=== PATIENT | female | born 1940 | race Caucasian/White ===

== ENCOUNTER 2017-12-05 10:55 | Inpatient (IN) | payer OTHER ==
[2017-12-05 11:52] LABS: Absolute Lymphocytes (CBC) 0.7 K/uL (0.7-4.9); Absolute Monocytes 0.3 K/uL (0.1-1.3); Absolute Neutrophil 8.1 K/uL (1.8-8.0); Basophils % 0.4 % (0-1.3); Eosinophils % 0.3 % (0-4.4); Hematocrit 39.6 % (36.0-45.0); Lymphocytes % 8.2 % (15.3-44.8); MCH 33.4 pg (27.0-35.0); MCV 99.3 fL (80-100); MPV 10.3 fL (7.6-11.3); Monocytes % 2.8 % (3.3-12.3); RBC Red Blood Cell Count 3.99 M/uL (3.86-4.86)
[2017-12-05 12:07] LABS: Protime INR 1.88
[2017-12-05] MEDS ORDERED: NA CHLORIDE 0.9% 1,000 ML ONE (12:12)
[2017-12-05] MEDS ORDERED: PIPER/TAZO/NS 3.375gm 3.375 GM/100 ML BAG IV ONE (12:15)
[2017-12-05 12:16] LABS: Blood Morphology Comment NOT SEEN (NOT SEEN); Platelet Estimate DECR; Urine White Blood Cell Casts OK
--- NOTE | 2017-12-05 12:32 | RAD REPORT ---
EXAM DESCRIPTION: RAD - Chest Single View - 12/05/2017 12:16 pm CLINICAL HISTORY: Fever and chills. COMPARISON: 02/11/2017 FINDINGS: Portable technique limits examination quality. Small calcified granuloma is present in the right upper lobe, likely benign. The lungs otherwise ginny sly clear. The heart is normal in size. No displaced fractures. IMPRESSION: No acute intrathoracic process suspected.
--- NOTE | 2017-12-05 12:34 | ER ---
Nurse's Notes [facility] Name: Emelia Payan Age: 77 yrs Sex: Female : 1940 Arrival Date: 12/05/2017 Time: 11:00 Bed 16 Private MD: Diagnosis: Cellulitis of left lower limb Presentation: 12/05 11:12 Presenting complaint: Patient states: woke up this morning with fever, chills, has hx iw of lymphedema in left leg which has become more red and swollen with weeping over past 3 weeks, also has wound on right leg from hitting it on a car door a couple weeks ago, wound is getting better, also started feeling pressure in her chest and SOB this morning, is feeling anxious. Transition of care: patient was not received from another setting of care. Onset of symptoms was December 05, 2017. Care prior to arrival: IV initiated. 20 GA, in the right antecubital area, Glucose check: 188. 11:12 Method Of Arrival: EMS: [facility] iw 11:12 Acuity: EDIS 3 iw 11:20 Care prior to arrival: Medication(s) given: Tylenol, 500 mg at 0945. iw Historical: - Allergies: 11:19 Cipro; iw 11:19 Xarelto; iw - Home Meds: 11:42 hydrocortisone 10 mg Oral tab 4 tabs 2 times per day [Active]; Omnitrope subcutaneous iw subcutaneous once daily [Active]; Vitamin D Oral 50,000 unit every 15 days [Active]; levothyroxine 125 mcg tab 1 tab once daily [Active]; Tradjenta 5 mg oral tab 1 tab once daily [Active]; glipizide 2.5 mg Oral tr24 once daily [Active]; liothyronine 5 mcg oral tab 1 tab once daily [Active]; potassium chloride 20 mEq Oral TbER once daily [Active]; magnesium oxide 500 mg Oral cap twice a day [Active]; warfarin 3 mg Oral tab 1 tab once daily [Active]; carvedilol 25 mg oral tab three times a day [Active]; losartan 100 mg oral tab 1 tab once daily [Active]; amlodipine 5 mg tab 1 tab once daily [Active]; fenofibrate oral 48 mg oral once daily [Active]; gabapentin 600 mg oral tab 1 tab 3 times per day [Active]; atorvastatin 10 mg oral tab 1 tab once daily [Active]; Creon 12,000-38,000 -60,000 unit oral cpDR 3 times per day [Active]; Dexilant 60 mg oral CpDB 1 cap once daily [Active]; - PMHx: 11:19 adrenal insuficiency; CHF; Diabetes - IDDM; DVT; Hyperlipidemia; Hypertension; iw Hypothyroidism; - Immunization history:: Adult Immunizations unknown. - Social history:: Smoking status: . Screenin:12 Abuse screen: Denies threats or abuse. Denies injuries from another. Nutritional iw screening: No deficits noted. Tuberculosis screening: No symptoms or risk factors identified. Fall Risk IV access (20 points). Assessment: 11:30 General: Appears in no apparent distress. Behavior is calm, cooperative. Pain: iw Complains of pain in left leg and left nettles. Neuro: Level of Consciousness is awake, alert, obeys commands, Oriented to person, place, time, situation. Cardiovascular: Edema is 2+ to left ankle, left foot and right foot. Cardiovascular: Reports chest pain, shortness of breath, Patient's skin is warm and dry. Respiratory: Reports shortness of breath Airway is patent Respiratory effort is even, labored, Respiratory pattern is symmetrical. Derm: Wound noted medial aspect of right calf Wound is approx 3 cm round area, healing wound, yellow granulation tissue present, pt states is getting better, has been there X 2 weeks. Derm: Musculoskeletal: Range of motion: intact in all extremities. 12:44 Reassessment: Patient appears in no apparent distress at this time. Dr. Cox at iw bedside to assess pt, family at bedside, antibiotics started, recollect sent to lab. Vital Signs: 11:17 BP 171 / 90; Pulse 109; Resp 22 S; Temp 101.2(O); Pulse Ox 98% on R/A; Weight 91.17 kg; iw Height 5 ft. 4 in. (162.56 cm); Pain 5/10; 13:17 BP 106 / 58; Pulse 101; Resp 20 S; Temp 99.1(O); Pulse Ox 96% on R/A; Pain 4/10; iw 11:17 Body Mass Index 34.50 (91.17 kg, 162.56 cm) iw ED Course: 11:00 Patient arrived in ED. iw 11:00 Chris Wynn MD is Attending Physician. tw4 11:12 Guerita Ray, RN is Primary Nurse. iw 11:17 Triage completed. iw 11:17 Arm band placed on. iw 11:30 Initial lab(s) drawn, by me, sent to lab. First set of blood cultures drawn Second set mh5 of blood cultures drawn by me. 11:41 Inserted saline lock: 20 gauge in left antecubital area, using aseptic technique. Blood 5 collected. 11:43 Amylase, Serum Sent. 5 11:43 Basic Metabolic Panel Sent. 5 11:43 Blood Culture Adult (2) Sent. 5 11:43 BNP Sent. 5 11:43 C-Reactive Protein Sent. 5 11:43 CBC with Diff Sent. 5 11:43 Ckmb Sent. 5 11:43 CPK Sent. 5 11:43 Lactate Sent. 5 11:43 LFT's Sent. 5 11:44 Lipase Sent. 5 11:44 Procalcitonin Sent. 5 11:44 Protime (+inr) Sent. 5 11:44 Ptt, Activated Sent. 5 11:44 Sed Rate Sent. 5 11:44 Troponin (emerg Dept Use Only) Sent. 5 12:00 Patient has correct armband on for positive identification. iw 12:15 X-ray completed. Portable x-ray completed in exam room. Patient tolerated procedure ml well. 12:16 Chest Single View XRAY In Process Unspecified. EDMS 12:32 Raul Cox DO is Hospitalizing Provider. tw4 14:16 No provider procedures requiring assistance completed. Patient admitted, IV remains in iw place. Administered Medications: 12:01 Drug: NS 0.9% (30 ml/kg) 30 ml/kg Route: IV; Rate: bolus; Site: left antecubital; iw 12:43 Drug: Zosyn 3.375 grams Route: IVPB; Infused Over: 60 mins; Site: right antecubital; iw 12:43 Drug: Motrin 400 mg Route: PO; iw Outcome: 12:33 Decision to Hospitalize by Provider. tw4 14:16 Admitted to Med/surg accompanied by сергей, via stretcher, room 206, Report called to vanessa Ornelas RN 14:16 Condition: good 14:16 Discharge instructions given to patient, family, Instructed on the need for admit, Demonstrated understanding of instructions. 14:17 Patient left the ED. iw Signatures: Dispatcher [employer] Guerita Cramer RN RN iw Lopez, Melissa ml Martinez, Maria [facility] Chris Wynn MD MD tw4
--- NOTE | 2017-12-05 12:34 | EDPHYS ---
Physician Documentation [facility] Name: Emelia Payan Age: 77 yrs Sex: Female : 1940 Arrival Date: 12/05/2017 Time: 11:00 Bed 16 Private MD: ED Physician Chris Wynn HPI: 12/05 11:44 This 77 yrs old Female presents to ER via EMS with complaints of Leg tw4 Swelling, Fever. 11:44 The patient reports fever, not measured (subjective). Onset: The symptoms/episode tw4 began/occurred 2 day(s) ago. Modifying factors: there are no obvious modifying factors. Associated signs and symptoms: Pertinent positives: leg swelling and pain. Severity of symptoms: At their worst the symptoms were moderate in the emergency department the symptoms. The patient has not experienced similar symptoms in the past. Historical: - Allergies: 11:19 Cipro; iw 11:19 Xarelto; iw - Home Meds: 11:42 hydrocortisone 10 mg Oral tab 4 tabs 2 times per day [Active]; Omnitrope subcutaneous iw subcutaneous once daily [Active]; Vitamin D Oral 50,000 unit every 15 days [Active]; levothyroxine 125 mcg tab 1 tab once daily [Active]; Tradjenta 5 mg oral tab 1 tab once daily [Active]; glipizide 2.5 mg Oral tr24 once daily [Active]; liothyronine 5 mcg oral tab 1 tab once daily [Active]; potassium chloride 20 mEq Oral TbER once daily [Active]; magnesium oxide 500 mg Oral cap twice a day [Active]; warfarin 3 mg Oral tab 1 tab once daily [Active]; carvedilol 25 mg oral tab three times a day [Active]; losartan 100 mg oral tab 1 tab once daily [Active]; amlodipine 5 mg tab 1 tab once daily [Active]; fenofibrate oral 48 mg oral once daily [Active]; gabapentin 600 mg oral tab 1 tab 3 times per day [Active]; atorvastatin 10 mg oral tab 1 tab once daily [Active]; Creon 12,000-38,000 -60,000 unit oral cpDR 3 times per day [Active]; Dexilant 60 mg oral CpDB 1 cap once daily [Active]; - PMHx: 11:19 adrenal insuficiency; CHF; Diabetes - IDDM; DVT; Hyperlipidemia; Hypertension; iw Hypothyroidism; - Immunization history:: Adult Immunizations unknown. - Social history:: Smoking status: . ROS: 11:44 Cardiovascular: Negative for chest pain, palpitations, and edema, Respiratory: Negative tw4 for shortness of breath, cough, wheezing, and pleuritic chest pain, Abdomen/GI: Negative for abdominal pain, nausea, vomiting, diarrhea, and constipation. 11:44 Constitutional: Positive for chills, fever, Negative for body aches, fatigue, malaise, poor PO intake, weight loss. 11:44 Skin: Negative for injury, rash, and discoloration, Neuro: Negative for headache, tw4 weakness, numbness, tingling, and seizure. 11:44 MS/extremity: Positive for pain, swelling, tenderness, warmth. Exam: 11:44 Constitutional: This is a well developed, well nourished patient who is awake, alert, tw4 and in no acute distress. Head/Face: Normocephalic, atraumatic. Chest/axilla: Normal chest wall appearance and motion. Nontender with no deformity. No lesions are appreciated. Cardiovascular: Regular rate and rhythm with a normal S1 and S2. No gallops, murmurs, or rubs. Normal PMI, no JVD. No pulse deficits. Respiratory: Lungs have equal breath sounds bilaterally, clear to auscultation and percussion. No rales, rhonchi or wheezes noted. No increased work of breathing, no retractions or nasal flaring. Abdomen/GI: Soft, non-tender, with normal bowel sounds. No distension or tympany. No guarding or rebound. No evidence of tenderness throughout. Skin: Warm, dry with normal turgor. Normal color with no rashes, no lesions, and no evidence of cellulitis. Neuro: Awake and alert, GCS 15, oriented to person, place, time, and situation. Cranial nerves II-XII grossly intact. Motor strength 5/5 in all extremities. Sensory grossly intact. Cerebellar exam normal. Normal gait. 11:44 Musculoskeletal/extremity: Extremities: noted in the left nettles: erythema, swelling, tenderness, There is no evidence of ecchymosis, laceration, puncture, rash. Vital Signs: 11:17 BP 171 / 90; Pulse 109; Resp 22 S; Temp 101.2(O); Pulse Ox 98% on R/A; Weight 91.17 kg; iw Height 5 ft. 4 in. (162.56 cm); Pain 5/10; 13:17 BP 106 / 58; Pulse 101; Resp 20 S; Temp 99.1(O); Pulse Ox 96% on R/A; Pain 4/10; iw 11:17 Body Mass Index 34.50 (91.17 kg, 162.56 cm) iw MDM: 11:00 Patient medically screened. tw4 12:33 Differential diagnosis: viral Infection, URI, pneumonia. Data reviewed: vital signs, tw4 nurses notes. 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 Counseling: I had a detailed discussion with the patient and/or guardian regarding: the historical points, exam findings, and any diagnostic results supporting the discharge/admit diagnosis, lab results, radiology results. Physician consultation: Raul Cox DO was called at 12:30, regarding admission, patient's condition, and will see patient in ED. 12/05 11:20 Order name: Amylase, Serum 12/05 11:20 Order name: Basic Metabolic Panel 12/05 11:20 Order name: Blood Culture Adult (2) 12/05 11:20 Order name: BNP; Complete Time: 12:24 4 12/05 11:20 Order name: C-Reactive Protein 12/05 11:20 Order name: CBC with Diff; Complete Time: 12:24 12/05 11:20 Order name: Ckmb 12/05 11:20 Order name: CPK 12/05 11:20 Order name: Lactate 12/05 11:20 Order name: LFT's 12/05 11:20 Order name: Lipase 12/05 11:20 Order name: Procalcitonin 12/05 11:20 Order name: Protime (+inr); Complete Time: 12:24 tw4 12/05 11:20 Order name: Ptt, Activated; Complete Time: 12:24 12/05 11:20 Order name: Sed Rate; Complete Time: 12:24 12/05 11:20 Order name: Troponin (emerg Dept Use Only) 12/05 11:20 Order name: Chest Single View XRAY 12/05 11:20 Order name: Accucheck; Complete Time: 11:31 tw4 12/05 11:20 Order name: Cardiac monitoring; Complete Time: 13:42 tw4 12/05 11:20 Order name: EKG - Nurse/Tech; Complete Time: 13:42 tw4 12/05 11:20 Order name: IV Saline Lock - Large Bore; Complete Time: 13:42 tw 12/05 11:20 Order name: Labs collected and sent; Complete Time: 13:42 tw4 12/05 11:20 Order name: O2 Per Protocol; Complete Time: 13:42 tw4 12/05 11:20 Order name: O2 Sat Monitoring; Complete Time: 13:42 [facility] 12/05 11:55 Order name: CBC Smear Scan; Complete Time: 12:24 EDCO 12/05 12:11 Order name: Labs - recollect needed; Complete Time: 12:43 bd Administered Medications: 12:01 Drug: NS 0.9% (30 ml/kg) 30 ml/kg Route: IV; Rate: bolus; Site: left antecubital; iw 12:43 Drug: Zosyn 3.375 grams Route: IVPB; Infused Over: 60 mins; Site: right antecubital; iw 12:43 Drug: Motrin 400 mg Route: PO; iw Disposition: 12/05/17 12:33 Hospitalization ordered by Raul Cox for Observation. Preliminary diagnosis is Cellulitis of left lower limb. - Bed requested for Telemetry/MedSurg (observation). - Status is Observation. iw - Condition is Stable. - Problem is new. - Symptoms are unchanged. UTI on Admission? No Signatures: Dispatcher [employer] Caren Travis Irene, ODILON RN Chris Wright MD MD tw4
[2017-12-05] MEDS ORDERED: IBUPROFEN 200 MG TAB PO ONE (12:47)
[2017-12-05] MEDS ORDERED: ONDANSETRON 4 MG/2 ML VIAL IV PRN (12:58)
[2017-12-05] MEDS ORDERED: ACETAMINOPHEN 500 MG TAB PO PRN (12:58)
[2017-12-05 13:04] LABS: Potassium 3.5 mEq/L (3.6-5.0)
[2017-12-05 13:12] LABS: Albumin 3.2 g/dL (3.2-5.5); Bilirubin Direct 0.1 mg/dL (0-0.2); Bilirubin Total 0.8 mg/dL (0.3-1.2); Protein, Total 5.5 g/dL (6.0-8.3)
[2017-12-05] MEDS ORDERED: TRAMADOL HCL 50 MG TAB PO PRN (13:14)
[2017-12-05 13:35] LABS: C-Reactive Protein 17.3 mg/L (<10.0)
--- NOTE | 2017-12-05 14:28 | P.HP ---
Certification for Inpatient Patient admitted to: Inpatient With expected LOS: >2 Midnights Patient will require the following post-hospital care: None Practitioner: I am a practitioner with admitting privileges, knowledge of patient current condition, hospital course, and medical plan of care. Services: Services provided to patient in accordance with Admission requirements found in Title 42 Section 412.3 of the Code of Federal Regulations Patient History Date of Service: 12/05/17 Primary Care Provider: Dr. Iraheta; Card-Dr. Belcher; Endo-Dr. Mcgregor; GI-Dr. Bush Reason for admission: Erythema, pain to the lower extremities History of Present Illness: 77-year-old female presented emergency room with multiple complaints including pain, erythema to the lower extremities bilateral. She also has an ulcer to the right lower extremity. Patient has noted increasing edema to the lower extremities over the past 3 weeks. The patient has chronic lymphedema. She reports that her leg has been weeping. Over the last several days she has noted increasing erythema bilaterally but more so on the left side. She also reports pain to the left ankle region. She further reports that she had a puncture wound to the left ankle with a thorn. This was removed. There is also a ulcer to the right lower extremity that has been present for quite some time. She has been doctoring it herself. She reports mild fever. She has been feeling weak. In the ER the patient was evaluated. Erythema was noted to the left lower extremity. White count 9.2, pro calcitonin unremarkable. Cellulitis was identified including ulcer to the right lower extremity. The patient was admitted for further evaluation and treatment. When I saw the patient ER, she appeared comfortable but had pain to the left ankle region. Patient has multiple medical problem. Patient is seen by multiple specialists including endocrinology, GI, cardiology. Allergies ciprofloxacin [From Cipro] Allergy (Verified 02/11/17 06:42) Unknown rivaroxaban [From Xarelto] Allergy (Verified 02/11/17 06:42) Unknown Home Medications: Amlodipine [Norvasc*] 5 mg PO DAILY 01/24/16 Atorvastatin Calcium [Lipitor*] 10 mg PO BEDTIME 01/24/16 Calcium Carbonate/Vitamin D3 [Calcium 500-Vit D3 400 Tablet] 1 tab PO DAILY Carvedilol [Coreg*] 25 mg PO TID 01/24/16 Ergocalciferol (Vitamin D2) [Vitamin D2] 1.25 mg PO SEECOM 01/24/16 Fenofibrate 40 mg PO DAILY 01/24/16 Ferrous Sulfate [Ferrous Sulfate*] 1 tab PO BID 01/24/16 Gabapentin [Neurontin] 600 mg PO BID 01/24/16 Hydrocortisone [Cortef*] 15 mg PO BID 01/24/16 Linagliptin [Tradjenta] 5 mg PO DAILY 01/24/16 Losartan Potassium [Cozaar] 100 mg PO DAILY 01/24/16 Magnesium Oxide [Laxative Dietary Supplement] 500 mg PO BID 01/24/16 Omeprazole [Prilosec] 40 mg PO DAILY 01/24/16 Potassium Oral Tab [Klor-Con 10 mEq Tab*] 20 meq PO DAILY 01/24/16 Somatropin [Omnitrope] 0.3 mg SQ DAILY 01/24/16 Warfarin Sodium [Coumadin] 3 mg PO DAILY 02/06/16 Glipizide [Glipizide Xl] 1 tab PO DAILY 12/29/16 Lipase/Protease/Amylase [Creon Dr 12,000 Units Capsule] 1 tab PO BID 12/29/16 Sucralfate [Carafate*] 1 tab PO Q6HR 12/29/16 Levothyroxine [Synthroid*] 1 tab PO DAILY 02/10/17 Lorazepam [Ativan*] 1 tab PO BEDTIME 02/10/17 Fluconazole [Diflucan] 200 mg PO DAILY #7 tablet 02/11/17 Lorazepam [Ativan*] 0.5 mg PO BEDTIME #14 tab 02/11/17 Nystatin 10 ml PO BID #300 ml 02/11/17 Pantoprazole [Protonix Tab*] 40 mg PO DAILYAC #30 tab 02/11/17 - Past Medical/Surgical History Diabetic: Yes -: Diabetes mellitus type 2 -: History CVA 2012 -: HTN -: Anxiety -: History of pituitary gland removal -: GERD with history of GI bleed -: Hypothyroidism -: Chronic anti coagulation -: History atrial fibrillation -: Chronic steroids -: Adrenal insufficiency -: Hyperlipidemia -: hysterectomy -: bradley carpal tunnel sx -: L lumpectomy -: brain tumor removed- benign -: pituitary gland removal -: appendectomy Psychosocial/ Personal History: The patient is . She has 5 children. She does not work. - Family History Mother -: Heart disease, Hypertension Notes: of heart attack Father -: Heart disease Notes: of heart attack - Social History Smoking Status: Never smoker Alcohol use: No CD- Drugs: No Caffeine use: Yes Place of Residence: Home Review of Systems General: Fever, Chills, Weakness, Malaise, As per HPI Eyes: Unremarkable ENT: Unremarkable Respiratory: Unremarkable Cardiovascular: Unremarkable Gastrointestinal: Unremarkable Genitourinary: Unremarkable Musculoskeletal: Leg Pain, Pedal edema, As per HPI Integumentary: As per HPI Neurological: Weakness Lymphatics: Unremarkable Physical Examination - Physical Exam General: Alert, In no apparent distress, Oriented x3, Cooperative HEENT: Atraumatic, Normocephalic, Mucous membr. moist/pink Neck: Supple, No Thyromegaly Respiratory: Clear to auscultation bilaterally, Normal air movement Cardiovascular: Normal pulses, Regular rate/rhythm Gastrointestinal: Normal bowel sounds, Soft and benign, Non-distended, No masses , No rebound, No guarding Musculoskeletal: Other (Erythema, pain to the left lower extremity. Pain with movement of the ankle region. Ulcer to the right lower extremity noted. Less erythema noted to the right side. Chronic lymphedema noted bilaterally.) Integumentary: Other (As above. Ulcer noted to the right lower extremity) Neurological: Normal speech, Normal strength at 5/5 x4 extr, Normal tone, Normal affect - Studies Laboratory Data (last 24 hrs) 12/05/17 11:15: PT 22.3 H, INR 1.88, APTT 26.2 12/05/17 11:15: WBC 9.2, Hgb 13.3, Hct 39.6, Plt Count 111 L 12/05/17 11:15: B-Natriuretic Peptide 197 H Assessment and Plan - Problems (Diagnosis) (1) Ulcer Current Visit: Yes Status: Acute Plan: Ulcer noted to the right lower extremity. Patient evaluated by surgery. Case discussed at length. Will continue with antibiotic therapy. Patient will need debridement. Surgery recommends cardiac clearance. Will consult cardiology to further assess. Will check ultrasound of the lower extremities to rule out DVT. Patient is taking Coumadin. INR subtherapeutic. No need to adjust medication at this time as the patient will need surgery. (2) Adrenal insufficiency Current Visit: Yes Status: Chronic Plan: Will continue with her steroid medication. (3) Chronic use of steroids Current Visit: Yes Status: Chronic Plan: Continue with her medication. (4) Atrial fibrillation Onset Date: 12/30/16 Current Visit: No Status: Chronic Plan: Will continue with medication. Patient on chronic anti coagulation therapy. Qualifiers: Atrial fibrillation type: chronic Qualified Code(s): I48.2 - Chronic atrial fibrillation (5) Cellulitis Onset Date: 12/30/16 Current Visit: No Status: Acute Plan: Antibiotics started. Will continue with above treatment plan. Qualifiers: Site of cellulitis: extremity Site of cellulitis of extremity: lower extremity Laterality: unspecified laterality Qualified Code(s): L03.119 - Cellulitis of unspecified part of limb (6) Chronic anticoagulation Onset Date: 01/20/16 Current Visit: No Status: Chronic Plan: Patient on Coumadin at this time. Will continue with current dose. Patient to have surgery tomorrow. (7) Diabetes mellitus Onset Date: 12/30/16 Current Visit: No Status: Chronic Plan: Will continue with sliding scale. Will monitor closely. Qualifiers: Diabetes mellitus type: type 2 Diabetes mellitus fci insulin use: without fci use Diabetes mellitus complication status: with unspecified complications Qualified Code(s): E11.8 - Type 2 diabetes mellitus with unspecified complications (8) Hyperlipidemia Onset Date: 01/20/16 Current Visit: No Status: Chronic Plan: Will continue with her medication. Qualifiers: Hyperlipidemia type: unspecified Qualified Code(s): E78.5 - Hyperlipidemia , unspecified (9) Hypertension Onset Date: 01/20/16 Current Visit: No Status: Chronic Plan: Will continue with her medication. Qualifiers: Hypertension type: essential hypertension Qualified Code(s): I10 - Essential (primary) hypertension (10) Hypothyroidism Onset Date: 01/20/16 Current Visit: No Status: Chronic Plan: Will continue with her medication Qualifiers: Hypothyroidism type: unspecified Qualified Code(s): E03.9 - Hypothyroidism , unspecified Discharge Plan: Home Plan to discharge in: Greater than 2 days - Advance Directives Does patient have a Living Will: Yes Does patient have a Durable POA for Healthcare: No - Code Status/Comfort Care Code Status Assessed: Yes Time Spent Managing Pts Care (In Minutes): 55
--- NOTE | 2017-12-05 15:19 | EKG ---
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
[2017-12-05] MEDS: GABAPENTIN 300 MG CAP PO SCH ×2 (15:20→21:43)
[2017-12-05] MEDS: VANCOMYCIN 1.5 GM in NA CHLORIDE 0.9% 500 ML IVPB SCH (15:21)
[2017-12-05] MEDS: PIPER/TAZO/NS 3.375gm 3.375 GM/100 ML BAG IVPB SCH (15:21)
--- NOTE | 2017-12-05 15:22 | RAD REPORT ---
EXAM DESCRIPTION: RAD - Ankle Left 3 View - 12/05/2017 3:03 pm CLINICAL HISTORY: Pain and swelling, fever COMPARISON: None. FINDINGS: Prominent soft tissue swelling is seen involving the ankle. Mild flatfoot deformity is pre sent. Calcaneal spurs are noted. No radiopaque foreign body seen. No subcutaneous air or evidence of osteomyelitis.
[2017-12-05] MEDS ORDERED: POTASSIUM CL SA 10 MEQ TAB PO ONE (16:37)
[2017-12-05] MEDS: CARVEDILOL 25 MG TAB PO SCH (17:03)
[2017-12-05] MEDS: INSULIN -REGULAR HUMAN 50 UNIT/0.5 ML ML SQ SCH ×2 (17:10→21:43)
[2017-12-05] MEDS: WARFARIN SODIUM 3 MG TAB PO SCH (17:10)
[2017-12-05] MEDS: AMYLASE/LIPASE/PROTEASE CAP PO SCH ×2 (17:10→21:43)
--- NOTE | 2017-12-05 17:56 | RAD REPORT ---
EXAM DESCRIPTION: VAS - Extrem Venous W Compress Anderson - 12/05/2017 4:14 pm CLINICAL HISTORY: Bilateral leg edema and swelling. COMPARISON: None. TECHNIQUE: Real-time sonographic interrogation of the left and right lower extremity deep venous sys tems was performed. FINDINGS: Normal compressibility, flow augmentation, phasic flow and spontaneous flow is identified in both the left and right lower extremity deep venous systems. IMPRESSION: No sonographic evidence of left or right lower extremity deep venous thrombosis.
--- NOTE | 2017-12-05 18:42 | CON ---
Date of Consultation: 12/05/2017 Diagnosis: Left leg cellulitis and right leg venous stasis ulcer with infection. History Of Present Illness: This is the case of a 77-year-old patient with 2 problems, running a fev er, and swelling of the left leg and entire lower area and foot associated with drainage from the are a and also the patient has a necrotic venous stasis ulcer on the right thigh, which is about 4 x 4 x 0.7 cm. The patient was admitted to the hospital with IV antibiotics and a surgical consult was obta ined for debridement. The patient stated that on the right side, she hit a car door about 2 weeks ag o and has not heal. On the left side, about 3 weeks ago, she started having swelling and weeping com ing from the area and basically has not stopped neither and now the redness and increased temperature . Past Medical History: Renal insufficiency, congestive heart failure, diabetes, DVT, hypertension, hy pothyroidism, Medications: Hydrocortisone, levothyroxine. Allergies: CIPRO AND XARELTO. Social History: She does not smoke. She does not drink alcohol. Family History: Noncontributory. Review of Systems: Constitutional: Patient states some fever and chills. Respiratory: Denies any shortness of breath. Gastrointestinal: Denies any melena, any hematochezia. Genitourinary: Denies any dysuria, hematuria. Extremities: As above. Physical Examination: General: The patient is awake, alert, in no distress. HEENT: Pupils anicteric. Chest: Clear. Abdomen: Soft and depressible. Extremities: With dorsalis pedis pulses present bilaterally. On the left side, the patient has cell ulitis and increased temperature from the area of the knee, all the way down to the foot. There are multiple areas with clear discharge consistent with chronic venous insufficiency and hypopigmentation over the area of the lower leg. On the right side, patient has an ulcer present, it is about 4 x 4 x 0.7 cm deep. Had some necrotic tissue present with some cellulitis over the area. Also changes of venous stasis disease with hyperpigmentation and chronic swelling with pitting edema. Once again, d orsalis pedis pulses and posterior tibialis are still present. Also femoral pulses bilaterally. Laboratory Data: Blood work shows WBC count of 9.2 with hemoglobin of 13.3, INR is 1.8, potassium 3. 5. Total bilirubin of 0.8. Assessment And Plan: Cellulitis of bilateral lower extremity with infected venous stasis ulcer on th e right side. The patient will need debridement of that area with benefits, alternatives, and risks fully explained to the patient, which include but are not limited to infection, bleeding, damage to a djacent structures, anesthesia complication, [place], and even . She will require wound care. She a lso will need compression dressings once the infection is under control. She understands the importa nce of living with venous stasis disease, and the importance of elevation and losing weight, and diet . The patient also counseled about diabetes control. I do not see any venous stasis, DVT, a venous Doppler ordered, but I believe she should she have one to rule out DVT. N.p.o. after midnight and co nsent for debridement of the right venous stasis infected ulcer with benefit, alternatives, and risks explained above. She understood. PINO/AZIZA Voice ID: [id number] Report ID: [id number]
--- NOTE | 2017-12-05 20:33 | CON ---
History Of Present Illness: Ms. Payan has AFib that is persistent. She is mostly in AFib, but tojose eduardo chrsity happens to be in sinus rhythm. She is on Coumadin. She could not take Xarelto. She does tolerate Coumadin. Her INR today is subtherapeutic. Her INR is 1.88, it is almost therapeutic. She has und erlying diabetes. She has chronic venous insufficiency. She gets ulcers on her skin because of that she actually has fairly decent arterial circulation to the legs pulses are easily palpable. She den ies having chest pain. She has mild dyspnea on exertion. The main reason for which she came was bec ause of ulcer on her right nettles that seems to be getting worse. Medications: Outpatient medications have been Omnitrope, potassium chloride, magnesium oxide, losart an, linagliptin, hydrocortisone, gabapentin, fenofibrate, Coreg, calcium carbonate, atorvastatin, aml odipine, warfarin, lipase, glipizide, levothyroxine, Dexilant, and liothyronine. Past Medical History: She has underlying pituitary insufficiency, chronic AFib, hypertension, diabet es. Allergies: SHE IS ALLERGIC TO CIPRO AND RIVAROXABAN. Physical Examination: Vital Signs: 5 feet 4 inches tall, 201 pounds. Obese. Alert and oriented. Not in distress. Lungs: Clear. Cardiac: Within normal limits. Abdomen: Soft. Extremities: Reveal chronic venous stasis changes. There is a blister that is intact on her left sh in. The right nettles has a blister with an ulcer and dorsalis pedis pulses are 1 to 2+ bilaterally. P osterior tibial pulses trace to 1+. Diagnostic Data: Electrocardiogram reveals sinus rhythm with premature atrial complexes. No other a bnormality. Impression: Mrs. Payan is an acceptable risk patient to undergo debridement of the ulcer on her rig ht nettles. If that can be closed and heal, she should probably be on lymphedema therapy or some kind o f compression stocking arrangement to minimize the amount of damage she gets from venous insufficienc y. SH/MODL Voice ID: [id number] Report ID: [id number]
[2017-12-05] MEDS: FENOFIBRATE 48 MG TAB PO SCH (21:42)
[2017-12-05] MEDS: HYDROCORTISONE 10 MG TAB PO SCH (21:42)
[2017-12-05] MEDS: ATORVASTATIN 10 MG TAB PO SCH (21:43)
[2017-12-05 23:09] LABS: Urine Appearance CLOUDY; Urine Bilirubin NEGATIVE (NEG); Urine Blood NEGATIVE (NEG); Urine Color YELLOW; Urine Glucose 1+ (NEG); Urine Protein NEGATIVE (NEG); Urine Specific Gravity 1.025 (1.005-1.030); Urine pH 5.5 (5.0-7.0)
[2017-12-05 23:17] LABS: Urine Microscopic Reflex ORDER UMIC
[2017-12-06 00:14] LABS: Calcium Oxalate Crystals- Ur FEW (NONE SEEN); Urine Bacteria <20 /HPF (<20); Urine Culture Reflex Order REFLEXED; Urine RBC NONE SEEN /HPF (NONE SEEN)
[2017-12-06] MEDS: PIPER/TAZO/NS 3.375gm 3.375 GM/100 ML BAG IVPB SCH ×3 (00:43→17:30)
[2017-12-06] MEDS ORDERED: NA CHLORIDE 0.9% 250 ML ONE (01:00)
[2017-12-06] MEDS: LIOTHYRONINE SOD 5 MCG TAB PO SCH (05:02)
[2017-12-06] MEDS: PANTOPRAZOLE 40MG TABLET PO SCH (05:02)
[2017-12-06] MEDS: LEVOTHYROXINE SOD 0.025 MG TAB PO SCH (05:02)
[2017-12-06] MEDS: CARVEDILOL 25 MG TAB PO SCH ×2 (05:02→17:26)
[2017-12-06 05:23] LABS: Absolute Lymphocytes (CBC) 0.5 K/uL (0.7-4.9); Absolute Monocytes 0.3 K/uL (0.1-1.3); Absolute Neutrophil 7.4 K/uL (1.8-8.0); Basophils % 0.2 % (0-1.3); Eosinophils % 0.3 % (0-4.4); Hematocrit 34.1 % (36.0-45.0); Lymphocytes % 5.8 % (15.3-44.8); MCH 33.5 pg (27.0-35.0); MCV 98.3 fL (80-100); MPV 10.1 fL (7.6-11.3); Monocytes % 3.9 % (3.3-12.3); RBC Red Blood Cell Count 3.47 M/uL (3.86-4.86)
[2017-12-06 05:50] LABS: Protime INR 2.14
[2017-12-06 06:02] LABS: Magnesium 1.6 mg/dL (1.8-2.5); Potassium 3.7 mEq/L (3.6-5.0)
[2017-12-06] MEDS ORDERED: MAGNESIUM SULFATE 1 gm IVPB 1 GM/100 ML BAG IV ONE (06:16)
[2017-12-06] MEDS ORDERED: KCL 20 MEQ/100 mL IVPB 20 MEQ/100 ML BAG IV SCH (07:00)
[2017-12-06] MEDS: AMYLASE/LIPASE/PROTEASE CAP PO SCH ×4 (07:30→21:48)
[2017-12-06] MEDS: INSULIN -REGULAR HUMAN 50 UNIT/0.5 ML ML SQ SCH ×4 (07:30→21:00)
[2017-12-06] MEDS: HYDROCORTISONE 10 MG TAB PO SCH ×2 (08:17→21:48)
[2017-12-06] MEDS: GABAPENTIN 300 MG CAP PO SCH ×3 (08:18→21:46)
[2017-12-06] MEDS: LOSARTAN POTASSIUM 50 MG TABLET PO SCH (08:22)
[2017-12-06] MEDS: AMLODIPINE 5 MG TAB PO SCH (08:22)
[2017-12-06] MEDS ORDERED: VANCOMYCIN 1 GM in NA CHLORIDE 0.9% 500 ML IVPB SCH (09:00)
[2017-12-06] MEDS ORDERED: LIDOCAINE 2% MPF 5 ML VIAL ONE (09:56)
[2017-12-06] MEDS ORDERED: PROPOFOL 200 MG/20 ML VIAL IV ONE (09:56)
[2017-12-06] MEDS ORDERED: ONDANSETRON 4 MG/2 ML VIAL ONE (09:57)
[2017-12-06] MEDS ORDERED: FENTANYL CITR 100 MCG/2 ML ONE (09:57)
[2017-12-06] MEDS ORDERED: NA CHLORIDE 0.9% 1,000 ML ONE (10:26)
--- NOTE | 2017-12-06 11:39 | P.BOP ---
Preoperative diagnosis: Necrotic infected right leg venous ulcer, left leg cellulitis Postoperative diagnosis: same Primary procedure: Excisional debridement subQ necrotic infected R leg venous ulcer [id number] Estimated blood loss: <10cc Specimen: none Findings: necrotic infected right leg venous ulcer Anesthesia: General Transferred to: Recovery Room Condition: Good
[2017-12-06] MEDS: HYDROCODONE/APAP 7.5/325 MG TAB PO PRN ×2 (14:17→21:47)
[2017-12-06] MEDS: VANCOMYCIN 1.5 GM in NA CHLORIDE 0.9% 500 ML IVPB SCH (15:02)
--- NOTE | 2017-12-06 15:58 | P.PN ---
Subjective Date of Service: 12/06/17 Primary Care Provider: Dr. Iraheta; Card-Dr. Belcher; Endo-Dr. Mcgregor; GI-Dr. Bush Chief Complaint: Erythema, pain to the lower extremities Subjective: Doing well Physical Examination - Vital Signs Temperature: 97.5 F Blood Pressure: 107/54 Pulse: 76 Respirations: 18 Pulse Ox (%): 95 - Physical Exam General: Alert, In no apparent distress, Oriented x3, Cooperative HEENT: Atraumatic Neck: Supple Respiratory: Clear to auscultation bilaterally, Normal air movement Cardiovascular: Normal pulses, Regular rate/rhythm Gastrointestinal: Normal bowel sounds, Soft and benign, Non-distended, No masses , No rebound, No guarding Musculoskeletal: Other (No significant change since yesterday. Erythema slightly less to the left side. Ulcer noted to the right lower) Neurological: Normal speech, Normal strength at 5/5 x4 extr, Normal tone, Normal affect - Studies Laboratory Data (last 24 hrs) 12/06/17 04:48: Sodium 143, Potassium 3.7, BUN 18, Creatinine 0.80, Glucose 146 H, Magnesium 1.6 L 12/06/17 04:48: PT 25.5 H, INR 2.14 12/06/17 04:48: WBC 8.2, Hgb 11.6 L, Hct 34.1 L, Plt Count 95 L Microbiology Data (last 24 hrs): 12/05/17 21:55 Wound - Right Lower Leg Gram Stain - Final Medications List Reviewed: Yes Assessment & Plan - Problems (Diagnosis) (1) Ulcer Onset Date: 12/06/17 Current Visit: Yes Status: Acute Plan: Ulcer noted to the right lower extremity. Patient cleared by cardiology. Surgery will take the patient for debridement of the right lower extremity venous stasis ulcer. Will continue IV antibiotic therapy. Will review home medications. (2) Adrenal insufficiency Onset Date: 12/06/17 Current Visit: Yes Status: Chronic Plan: Will continue with her steroid medication. (3) Chronic use of steroids Onset Date: 12/06/17 Current Visit: Yes Status: Chronic Plan: Continue with her medication. (4) Atrial fibrillation Onset Date: 12/30/16 Current Visit: No Status: Chronic Plan: Will continue with medication. Patient on chronic anti coagulation therapy. Qualifiers: Atrial fibrillation type: chronic Qualified Code(s): I48.2 - Chronic atrial fibrillation (5) Cellulitis Onset Date: 12/30/16 Current Visit: No Status: Acute Plan: Will continue with antibiotic therapy. Patient be taken to surgery today. Qualifiers: Site of cellulitis: extremity Site of cellulitis of extremity: lower extremity Laterality: unspecified laterality Qualified Code(s): L03.119 - Cellulitis of unspecified part of limb (6) Chronic anticoagulation Onset Date: 01/20/16 Current Visit: No Status: Chronic Plan: Patient on Coumadin at this time. Will continue with current dose. (7) Diabetes mellitus Onset Date: 12/30/16 Current Visit: No Status: Chronic Plan: Will continue with sliding scale. Will monitor closely. 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 Qualifiers: Hyperlipidemia type: unspecified Qualified Code(s): E78.5 - Hyperlipidemia , unspecified (9) Hypertension Onset Date: 01/20/16 Current Visit: No Status: Chronic Plan: Will continue with her medication. Qualifiers: Hypertension type: essential hypertension Qualified Code(s): I10 - Essential (primary) hypertension (10) Hypothyroidism Onset Date: 01/20/16 Current Visit: No Status: Chronic Plan: Will continue with her medication Qualifiers: Hypothyroidism type: unspecified Qualified Code(s): E03.9 - Hypothyroidism , unspecified Discharge Plan: Home Plan to discharge in: Greater than 2 days Time Spent Managing Pts Care (In Minutes): 55
[2017-12-06] MEDS: WARFARIN SODIUM 3 MG TAB PO SCH (17:25)
[2017-12-06] MEDS ORDERED: GLUCAGON 1 MG/VIAL IM PRN (18:14)
[2017-12-06] MEDS ORDERED: D50W 25 GM/50 ML SYRINGE IV PRN (18:14)
[2017-12-06] MEDS: MAGNESIUM OXIDE 500 MG PO SCH (21:00)
[2017-12-06] MEDS: ATORVASTATIN 10 MG TAB PO SCH (21:48)
[2017-12-06] MEDS: FENOFIBRATE 48 MG TAB PO SCH (21:48)
[2017-12-07] MEDS: PIPER/TAZO/NS 3.375gm 3.375 GM/100 ML BAG IVPB SCH ×3 (00:01→16:59)
[2017-12-07 05:32] LABS: Absolute Lymphocytes (CBC) 0.7 K/uL (0.7-4.9); Absolute Monocytes 0.3 K/uL (0.1-1.3); Absolute Neutrophil 5.6 K/uL (1.8-8.0); Basophils % 0.3 % (0-1.3); Eosinophils % 0.8 % (0-4.4); Hematocrit 32.5 % (36.0-45.0); Lymphocytes % 10.5 % (15.3-44.8); MCH 33.8 pg (27.0-35.0); MCV 98.5 fL (80-100); MPV 9.6 fL (7.6-11.3); Monocytes % 4.7 % (3.3-12.3)
[2017-12-07 05:46] LABS: Magnesium 1.8 mg/dL (1.8-2.5); Potassium 4.2 mEq/L (3.6-5.0)
[2017-12-07] MEDS ORDERED: MAGNESIUM SULFATE 1 gm IVPB 1 GM/100 ML BAG IV ONE (05:54)
[2017-12-07 05:57] LABS: Protime INR 1.74
[2017-12-07] MEDS: HYDROCODONE/APAP 7.5/325 MG TAB PO PRN (06:17)
[2017-12-07] MEDS: LEVOTHYROXINE SOD 0.025 MG TAB PO SCH (06:18)
[2017-12-07] MEDS: PANTOPRAZOLE 40MG TABLET PO SCH (06:18)
[2017-12-07] MEDS: CARVEDILOL 25 MG TAB PO SCH ×2 (06:18→16:59)
[2017-12-07] MEDS: LIOTHYRONINE SOD 5 MCG TAB PO SCH (06:18)
[2017-12-07] MEDS: INSULIN -REGULAR HUMAN 50 UNIT/0.5 ML ML SQ SCH ×4 (07:30→20:54)
--- NOTE | 2017-12-07 08:51 | P.PN ---
Subjective Date of Service: 12/07/17 Primary Care Provider: Dr. Iraheta; Card-Dr. Belcher; Endo-Dr. Mcgregor; GI-Dr. Bush Chief Complaint: Erythema, pain to the lower extremities Subjective: Doing well (Patient was able to ambulate today.) Physical Examination - Vital Signs Temperature: 97.4 F Blood Pressure: 132/63 Pulse: 76 Respirations: 20 Pulse Ox (%): 96 - Physical Exam General: Alert, In no apparent distress, Oriented x3, Cooperative HEENT: Atraumatic Neck: Supple Respiratory: Clear to auscultation bilaterally, Normal air movement Cardiovascular: Normal pulses, Regular rate/rhythm Gastrointestinal: Normal bowel sounds, Soft and benign, Non-distended, No tenderness, No masses, No rebound, No guarding Musculoskeletal: No erythema, No tenderness, No warmth Integumentary: Other (Erythema to the lower extremities improved. Swelling to the lower extremities also improved. Particularly to the left side shows improvement. Right lower extremity bandaged as she had surgery yesterday.) Neurological: Normal speech, Normal strength at 5/5 x4 extr, Normal tone, Normal affect - Studies Microbiology Data (last 24 hrs): 12/05/17 21:55 Wound - Right Lower Leg Gram Stain - Final Medications List Reviewed: Yes Assessment & Plan - Problems (Diagnosis) (1) Ulcer Onset Date: 12/06/17 Current Visit: Yes Status: Acute Plan: Patient had surgery for debridement of the right lower extremity ulcer. Cultures obtained. Will continue with IV antibiotic therapy. Overall cellulitis has improved. Will discuss further with surgery. Will have physical therapy ambulate. (2) Adrenal insufficiency Onset Date: 12/06/17 Current Visit: Yes Status: Chronic Plan: Will continue with her steroid medication. (3) Chronic use of steroids Onset Date: 12/06/17 Current Visit: Yes Status: Chronic Plan: Continue with her medication. (4) Atrial fibrillation Onset Date: 12/30/16 Current Visit: No Status: Chronic Plan: Will continue with medication. Patient on chronic anti coagulation therapy. Qualifiers: Atrial fibrillation type: chronic Qualified Code(s): I48.2 - Chronic atrial fibrillation (5) Cellulitis Onset Date: 12/30/16 Current Visit: No Status: Acute Plan: Will continue with antibiotic therapy. Patient had surgery to the ulcer on the right lower extremity yesterday. She tolerated this well. Overall her condition has improved with IV antibiotic therapy. Will have physical therapy assess ambulation. Culture from surgery obtained. Await results. Qualifiers: Site of cellulitis: extremity Site of cellulitis of extremity: lower extremity Laterality: unspecified laterality Qualified Code(s): L03.119 - Cellulitis of unspecified part of limb (6) Chronic anticoagulation Onset Date: 01/20/16 Current Visit: No Status: Chronic Plan: Patient on Coumadin at this time. Will continue with current dose. (7) Diabetes mellitus Onset Date: 12/30/16 Current Visit: No Status: Chronic Plan: Will continue with sliding scale. Will monitor closely. Qualifiers: Diabetes mellitus type: type 2 Diabetes mellitus [facility] insulin use: without parts counterman use Diabetes mellitus complication status: with unspecified complications Qualified Code(s): E11.8 - Type 2 diabetes mellitus with unspecified complications (8) Hyperlipidemia Onset Date: 01/20/16 Current Visit: No Status: Chronic Plan: Will continue with her medication. Qualifiers: Hyperlipidemia type: unspecified Qualified Code(s): E78.5 - Hyperlipidemia , unspecified (9) Hypertension Onset Date: 01/20/16 Current Visit: No Status: Chronic Plan: Will continue with her medication. Qualifiers: Hypertension type: essential hypertension Qualified Code(s): I10 - Essential (primary) hypertension (10) Hypothyroidism Onset Date: 01/20/16 Current Visit: No Status: Chronic Plan: Will continue with her medication Qualifiers: Hypothyroidism type: unspecified Qualified Code(s): E03.9 - Hypothyroidism , unspecified (11) Obesity Current Visit: Yes Status: Acute Plan: Will address lifestyle modification education. Qualifiers: Obesity type: due to excess calories Obesity classification: adult class 1 (BMI 30 - 34.9) Serious obesity comorbidity presence: with serious comorbidity Body mass index: BMI 34.0-34.9 Qualified Code(s): E66.09 - Other obesity due to excess calories; Z68.34 - Body mass index (BMI) 34.0-34.9, adult; Z68.34 - Body mass index (BMI) 34.0-34.9, adult (12) Anemia Onset Date: 01/31/15 Current Visit: No Status: Chronic Plan: Likely of chronic disease. Will monitor closely. Qualifiers: Anemia type: other cause Other causes of anemia: chronic disease, other Qualified Code(s): D63.8 - Anemia in other chronic diseases classified elsewhere Discharge Plan: Home Plan to discharge in: 48 Hours Time Spent Managing Pts Care (In Minutes): 55
[2017-12-07] MEDS: SOMATROPIN SQ SCH (09:00)
[2017-12-07] MEDS: MAGNESIUM OXIDE 500 MG PO SCH ×2 (09:00→20:53)
[2017-12-07 10:02] LABS: Platelet Estimate DECR; Urine White Blood Cell Casts OK
[2017-12-07 10:03] LABS: Blood Morphology Comment NOT SEEN (NOT SEEN)
[2017-12-07] MEDS: AMLODIPINE 5 MG TAB PO SCH (10:39)
[2017-12-07] MEDS: HYDROCORTISONE 10 MG TAB PO SCH ×2 (10:39→20:53)
[2017-12-07] MEDS: GABAPENTIN 300 MG CAP PO SCH ×3 (10:39→20:52)
[2017-12-07] MEDS: LOSARTAN POTASSIUM 50 MG TABLET PO SCH (10:39)
[2017-12-07] MEDS: AMYLASE/LIPASE/PROTEASE CAP PO SCH ×4 (10:39→20:52)
--- NOTE | 2017-12-07 13:38 | EKG ---
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
--- NOTE | 2017-12-07 13:42 | RAD REPORT ---
EXAM DESCRIPTION: Brandon Snyder (2 Views)12/07/2017 1:28 pm CLINICAL HISTORY: Chest pain COMPARISON: December 05, 2017 FINDINGS: The lungs appear clear of acute infiltrate. The heart is normal size IMPRESSION: No acute abnormalities displayed
[2017-12-07] MEDS: VANCOMYCIN 1.5 GM in NA CHLORIDE 0.9% 500 ML IVPB SCH (15:32)
[2017-12-07] MEDS: WARFARIN SODIUM 3 MG TAB PO SCH (16:59)
[2017-12-07] MEDS: ATORVASTATIN 10 MG TAB PO SCH (20:53)
[2017-12-07] MEDS: FENOFIBRATE 48 MG TAB PO SCH (20:53)
[2017-12-08] MEDS: PIPER/TAZO/NS 3.375gm 3.375 GM/100 ML BAG IVPB SCH ×3 (01:08→17:25)
[2017-12-08 05:12] LABS: Absolute Lymphocytes (CBC) 0.7 K/uL (0.7-4.9); Absolute Monocytes 0.3 K/uL (0.1-1.3); Basophils % 0.3 % (0-1.3); Eosinophils % 0.8 % (0-4.4); Hematocrit 31.1 % (36.0-45.0); Lymphocytes % 13.7 % (15.3-44.8); MCH 32.6 pg (27.0-35.0); MCV 98.5 fL (80-100); MPV 10.2 fL (7.6-11.3); Monocytes % 5.2 % (3.3-12.3); RBC Red Blood Cell Count 3.16 M/uL (3.86-4.86)
[2017-12-08 05:23] LABS: Protime INR 1.63
[2017-12-08] MEDS: LEVOTHYROXINE SOD 0.025 MG TAB PO SCH (05:54)
[2017-12-08] MEDS: CARVEDILOL 25 MG TAB PO SCH ×2 (05:54→17:25)
[2017-12-08] MEDS: PANTOPRAZOLE 40MG TABLET PO SCH (05:54)
[2017-12-08] MEDS: LIOTHYRONINE SOD 5 MCG TAB PO SCH (05:54)
[2017-12-08 06:00] LABS: Potassium 3.8 mEq/L (3.6-5.0)
[2017-12-08 06:01] LABS: Magnesium 1.8 mg/dL (1.8-2.5)
[2017-12-08] MEDS: MAGNESIUM OXIDE 500 MG PO SCH ×2 (07:13→20:43)
[2017-12-08] MEDS: SOMATROPIN SQ SCH (07:13)
[2017-12-08] MEDS ORDERED: MAGNESIUM SULFATE 1 gm IVPB 1 GM/100 ML BAG IV ONE (07:14)
[2017-12-08] MEDS ORDERED: POTASSIUM CL SA 10 MEQ TAB PO ONE (07:14)
[2017-12-08] MEDS: INSULIN -REGULAR HUMAN 50 UNIT/0.5 ML ML SQ SCH ×4 (07:30→21:00)
[2017-12-08] MEDS: AMLODIPINE 5 MG TAB PO SCH (09:30)
[2017-12-08] MEDS: LOSARTAN POTASSIUM 50 MG TABLET PO SCH (09:30)
[2017-12-08] MEDS: FUROSEMIDE 20 MG/ 2ML VIAL IV SCH (09:30)
[2017-12-08] MEDS: HYDROCORTISONE 10 MG TAB PO SCH ×2 (09:31→20:45)
[2017-12-08] MEDS: GABAPENTIN 300 MG CAP PO SCH ×3 (09:31→20:45)
[2017-12-08] MEDS: AMYLASE/LIPASE/PROTEASE CAP PO SCH ×4 (09:31→20:45)
[2017-12-08] MEDS: COLLAGENASE 30 GM OINTMENT TOP SCH (11:04)
--- NOTE | 2017-12-08 11:27 | P.PN ---
Subjective Date of Service: 12/08/17 Primary Care Provider: Dr. Iraheta; Card-Dr. Belcher; Endo-Dr. Mcgregor; GI-Dr. Bush Chief Complaint: Erythema, pain to the lower extremities Subjective: Other (Patient improving. Patient able to ambulate. Edema, erythema to the lower extremities improved.) Physical Examination - Vital Signs Temperature: 97.3 F Blood Pressure: 130/60 Pulse: 70 Respirations: 18 Pulse Ox (%): 99 - Physical Exam General: Alert, In no apparent distress, Oriented x3, Cooperative HEENT: Atraumatic Neck: Supple Respiratory: Clear to auscultation bilaterally, Normal air movement Cardiovascular: Normal pulses, Regular rate/rhythm Gastrointestinal: Normal bowel sounds, Soft and benign, Non-distended, No masses , No rebound, No guarding Musculoskeletal: Other (Erythema to the left lower extremity improved. Edema improved but still present. Right lower extremity bandaged.) Integumentary: Other (Patient has ulcer to the right lower extremity. This is bandaged.) Neurological: Normal speech, Normal strength at 5/5 x4 extr, Normal tone, Normal affect - Studies Microbiology Data (last 24 hrs): 12/05/17 21:55 Wound - Right Lower Leg Gram Stain - Final 12/05/17 21:55 Wound - Right Lower Leg Culture & Sensitivity - Final 12/05/17 21:55 Clean Catch Urine [place] Count - Final <10,000 CFU/ML. 12/05/17 21:55 Clean Catch Urine - Final Medications List Reviewed: Yes Assessment & Plan - Problems (Diagnosis) (1) Ulcer Onset Date: 12/06/17 Current Visit: Yes Status: Acute Plan: Will continue with IV antibiotic therapy. Will consult infectious disease for wound care and antibiotic recommendation. Will discuss with surgery who did debridement the other day. Cultures pending at this time. Will have physical therapy ambulate patient. (2) Adrenal insufficiency Onset Date: 12/06/17 Current Visit: Yes Status: Chronic Plan: Will continue with her steroid medication. (3) Chronic use of steroids Onset Date: 12/06/17 Current Visit: Yes Status: Chronic Plan: Continue with her medication. (4) Atrial fibrillation Onset Date: 12/30/16 Current Visit: No Status: Chronic Plan: Patient in normal sinus rhythm. Will continue with medication. Patient on chronic anti coagulation therapy. Qualifiers: Atrial fibrillation type: chronic Qualified Code(s): I48.2 - Chronic atrial fibrillation (5) Cellulitis Onset Date: 12/30/16 Current Visit: No Status: Acute Plan: Overall this has improved. Will continue with IV antibiotic therapy. Will consult infectious disease for recommendations on wound care and antibiotic treatment. Will discuss with surgery. Possible discharge in the next 1-2 days. Will provide Lasix for the edema. Qualifiers: Site of cellulitis: extremity Site of cellulitis of extremity: lower extremity Laterality: unspecified laterality Qualified Code(s): L03.119 - Cellulitis of unspecified part of limb (6) Chronic anticoagulation Onset Date: 01/20/16 Current Visit: No Status: Chronic Plan: Patient on Coumadin at this time. Will continue with current dose. (7) Diabetes mellitus Onset Date: 12/30/16 Current Visit: No Status: Chronic Plan: Will continue with sliding scale. Will monitor closely. Qualifiers: Diabetes mellitus type: type 2 Diabetes mellitus [facility] insulin use: without ferry terminal agent use Diabetes mellitus complication status: with unspecified complications Qualified Code(s): E11.8 - Type 2 diabetes mellitus with unspecified complications (8) Hyperlipidemia Onset Date: 01/20/16 Current Visit: No Status: Chronic Plan: Will continue with her medication. Qualifiers: Hyperlipidemia type: unspecified Qualified Code(s): E78.5 - Hyperlipidemia , unspecified (9) Hypertension Onset Date: 01/20/16 Current Visit: No Status: Chronic Plan: Will continue with her medication. Qualifiers: Hypertension type: essential hypertension Qualified Code(s): I10 - Essential (primary) hypertension (10) Hypothyroidism Onset Date: 01/20/16 Current Visit: No Status: Chronic Plan: Will continue with her medication Qualifiers: Hypothyroidism type: unspecified Qualified Code(s): E03.9 - Hypothyroidism , unspecified (11) Obesity Current Visit: Yes Status: Acute Plan: Will address lifestyle modification education. Qualifiers: Obesity type: due to excess calories Obesity classification: adult class 1 (BMI 30 - 34.9) Serious obesity comorbidity presence: with serious comorbidity Body mass index: BMI 34.0-34.9 Qualified Code(s): E66.09 - Other obesity due to excess calories; Z68.34 - Body mass index (BMI) 34.0-34.9, adult; Z68.34 - Body mass index (BMI) 34.0-34.9, adult (12) Anemia Onset Date: 01/31/15 Current Visit: No Status: Chronic Plan: Likely of chronic disease. Will monitor closely. Qualifiers: Anemia type: other cause Other causes of anemia: chronic disease, other Qualified Code(s): D63.8 - Anemia in other chronic diseases classified elsewhere Discharge Plan: Home Plan to discharge in: 48 Hours Time Spent Managing Pts Care (In Minutes): 55
[2017-12-08] MEDS: VANCOMYCIN 1.5 GM in NA CHLORIDE 0.9% 500 ML IVPB SCH (15:01)
[2017-12-08] MEDS: WARFARIN SODIUM 3 MG TAB PO SCH (17:25)
[2017-12-08] MEDS: ATORVASTATIN 10 MG TAB PO SCH (20:45)
[2017-12-08] MEDS: FENOFIBRATE 48 MG TAB PO SCH (20:45)
--- NOTE | 2017-12-08 21:27 | CON ---
History Of Present Illness: This is a 77-year-old female who came in with injury to her right leg, w hich has been debrided by surgical team here. The patient has venous stasis secondary to congestive heart failure with stasis dermatitis. She was having increasing discomfort and increased weeping fro m her legs. Denies any headache, nausea, vomiting, chest pain, abdominal pain. Having loose motion. In the last 24 hours, she had 5 bowel movement. Past Medical History: Diabetes mellitus, history of stroke in 2013, hypertension, anxiety, pituitary gland tumor removal, GERD, hypothyroidism, atrial fibrillation, adrenal insufficiency, hyperlipidemi a, hysterectomy, bilateral carpal tunnels surgery, left lumpectomy, appendectomy. Social History: Nonsmoker, nondrinker. Family History: Heart problem, hypertension. Medications: Include Zosyn and vancomycin. See MARs for other medications. Allergies: CIPRO AND RIVAROXABAN. Review of Systems: A 10-point review was performed. Physical Examination: General: This is a 77-year-old female, lying in bed, not in any acute distress. Vital Signs: Temperature 97.7, pulse 84, respirations 20, blood pressure 155/68. HEENT: Unremarkable. Neck: Supple. Lungs: Basal crackles. Heart: S1, S2. Regular. Abdomen: Soft, nontender. Bowel sounds positive. Extremities: Trace edema with erythematous changes on both legs and dry skin and scaly skin. Ulcera tion noted, status post debridement. Laboratory Data: Shows WBC 5000, hemoglobin 10.3, platelets are 91. Chemistry shows sodium 139, pot assium 3.8, chloride 110, bicarbonate 26. BUN 15, creatinine 0.74, glucose is 154. Microbiology Data: Shows blood cultures are negative. Diagnostic Data: Venous Doppler, no DVT. Chest x-ray, no intrathoracic process. Assessment And Plan: A 77-year-old female with multiple medical problems, coming in status post inju ry from car door to the right leg with significant history of stasis dermatitis causing cellulitis to the right leg and abscess which is being treated with vancomycin and Zosyn. We will recommend to co ntinue antibiotic for 2 weeks. [facility] 2 p.m. The patient is having diarrhea. We will not recommend oral antibiotic at this time. Thank you Dr. Cox for consult. NF/MODL Voice ID: [id number] Report ID: [id number]
[2017-12-09] MEDS: PIPER/TAZO/NS 3.375gm 3.375 GM/100 ML BAG IVPB SCH ×3 (00:43→17:53)
[2017-12-09 05:28] LABS: Absolute Lymphocytes (CBC) 0.6 K/uL (0.7-4.9); Absolute Monocytes 0.3 K/uL (0.1-1.3); Absolute Neutrophil 3.7 K/uL (1.8-8.0); Basophils % 0.4 % (0-1.3); Eosinophils % 1.1 % (0-4.4); Hematocrit 30.8 % (36.0-45.0); Lymphocytes % 13.2 % (15.3-44.8); MCH 32.6 pg (27.0-35.0); MCV 97.2 fL (80-100); MPV 9.9 fL (7.6-11.3); Monocytes % 6.8 % (3.3-12.3); Protime INR 1.74; RBC Red Blood Cell Count 3.17 M/uL (3.86-4.86)
[2017-12-09 05:52] LABS: Magnesium 1.7 mg/dL (1.8-2.5); Potassium 3.4 mEq/L (3.6-5.0)
[2017-12-09] MEDS: LIOTHYRONINE SOD 5 MCG TAB PO SCH (06:12)
[2017-12-09] MEDS: LEVOTHYROXINE SOD 0.025 MG TAB PO SCH (06:12)
[2017-12-09] MEDS: CARVEDILOL 25 MG TAB PO SCH ×2 (06:12→17:52)
[2017-12-09] MEDS: PANTOPRAZOLE 40MG TABLET PO SCH (06:12)
[2017-12-09] MEDS ORDERED: POTASSIUM CL SA 10 MEQ TAB PO ONE (07:00)
[2017-12-09] MEDS ORDERED: MAGNESIUM SULFATE 1 gm IVPB 1 GM/100 ML BAG IV ONE (07:00)
[2017-12-09] MEDS: INSULIN -REGULAR HUMAN 50 UNIT/0.5 ML ML SQ SCH ×4 (07:30→21:54)
--- NOTE | 2017-12-09 08:09 | P.PN ---
Subjective Date of Service: 12/09/17 Primary Care Provider: Dr. Iraheta; Card-Dr. Belcher; Endo-Dr. Mcgregor; GI-Dr. Bush Chief Complaint: Erythema, pain to the lower extremities Subjective: Improving Physical Examination - Vital Signs Temperature: 97.3 F Blood Pressure: 159/74 Pulse: 74 Respirations: 16 Pulse Ox (%): 97 - Physical Exam General: Alert, In no apparent distress, Oriented x3, Cooperative HEENT: Atraumatic, Mucous membr. moist/pink Neck: Supple, No Thyromegaly Respiratory: Clear to auscultation bilaterally, Normal air movement Cardiovascular: Normal pulses, Regular rate/rhythm Gastrointestinal: Normal bowel sounds, Soft and benign, Non-distended Musculoskeletal: Other (Erythema to the left lower extremity improved. Swelling also improved. Bandage to the right lower extremity noted.) Integumentary: Other (As above) Neurological: Normal speech, Normal strength at 5/5 x4 extr, Normal tone, Normal affect - Studies Microbiology Data (last 24 hrs): 12/05/17 21:55 Wound - Right Lower Leg Gram Stain - Final 12/05/17 21:55 Wound - Right Lower Leg Culture & Sensitivity - Final 12/05/17 21:55 Clean Catch Urine [facility] Count - Final <10,000 CFU/ML. 12/05/17 21:55 Clean Catch Urine - Final Medications List Reviewed: Yes Assessment & Plan - Problems (Diagnosis) (1) Ulcer Onset Date: 12/06/17 Current Visit: Yes Status: Acute Plan: Will continue with IV antibiotic therapy. Case discussed at length with infectious disease. Patient will need aggressive wound care and IV antibiotic therapy for at least 2 weeks. Patient agreeable to go to a skilled facility to continue her care. Will have certified social workers in health care help arrange for skilled placement. Patient will continue with Zosyn and vancomycin for 2 weeks. Pharmacy to monitor and adjust. Patient has PICC line in place. I will be out of town this weekend. Dr. Hawley will cover for me. (2) Adrenal insufficiency Onset Date: 12/06/17 Current Visit: Yes Status: Chronic Plan: Will continue with her steroid medication. (3) Chronic use of steroids Onset Date: 12/06/17 Current Visit: Yes Status: Chronic Plan: Continue with her medication. (4) Atrial fibrillation Onset Date: 12/30/16 Current Visit: No Status: Chronic Plan: Patient in normal sinus rhythm. Will continue with medication. Patient on chronic anti coagulation therapy. Qualifiers: Atrial fibrillation type: chronic Qualified Code(s): I48.2 - Chronic atrial fibrillation (5) Cellulitis Onset Date: 12/30/16 Current Visit: No Status: Acute Plan: Overall this has improved. Erythema, pain improved. Will continue with above recommendation as per infectious disease. Await skilled placement approval for IV antibiotic therapy for 2 weeks and wound care. Qualifiers: Site of cellulitis: extremity Site of cellulitis of extremity: lower extremity Laterality: unspecified laterality Qualified Code(s): L03.119 - Cellulitis of unspecified part of limb (6) Chronic anticoagulation Onset Date: 01/20/16 Current Visit: No Status: Chronic Plan: Patient on Coumadin at this time. Will continue with current dose. (7) Diabetes mellitus Onset Date: 12/30/16 Current Visit: No Status: Chronic Plan: Will continue with sliding scale. Will monitor closely. Qualifiers: Diabetes mellitus type: type 2 Diabetes mellitus longterm insulin use: without longterm use Diabetes mellitus complication status: with unspecified complications Qualified Code(s): E11.8 - Type 2 diabetes mellitus with unspecified complications (8) Hyperlipidemia Onset Date: 01/20/16 Current Visit: No Status: Chronic Plan: Will continue with her medication. Qualifiers: Hyperlipidemia type: unspecified Qualified Code(s): E78.5 - Hyperlipidemia , unspecified (9) Hypertension Onset Date: 01/20/16 Current Visit: No Status: Chronic Plan: Will continue with her medication. Qualifiers: Hypertension type: essential hypertension Qualified Code(s): I10 - Essential (primary) hypertension (10) Hypothyroidism Onset Date: 01/20/16 Current Visit: No Status: Chronic Plan: Will continue with her medication Qualifiers: Hypothyroidism type: unspecified Qualified Code(s): E03.9 - Hypothyroidism , unspecified (11) Obesity Current Visit: Yes Status: Acute Plan: Will address lifestyle modification education. Qualifiers: Obesity type: due to excess calories Obesity classification: adult class 1 (BMI 30 - 34.9) Serious obesity comorbidity presence: with serious comorbidity Body mass index: BMI 34.0-34.9 Qualified Code(s): E66.09 - Other obesity due to excess calories; Z68.34 - Body mass index (BMI) 34.0-34.9, adult; Z68.34 - Body mass index (BMI) 34.0-34.9, adult (12) Anemia Onset Date: 01/31/15 Current Visit: No Status: Chronic Plan: Likely of chronic disease. Will monitor closely. Qualifiers: Anemia type: other cause Other causes of anemia: chronic disease, other Qualified Code(s): D63.8 - Anemia in other chronic diseases classified elsewhere (13) Acute diarrhea Current Visit: Yes Status: Acute Plan: Patient reports diarrhea. Will check for C. diff. Patient reports this is loose likely from dietary changes. Will monitor closely. Discharge Plan: [facility] Plan to discharge in: 24 Hours Time Spent Managing Pts Care (In Minutes): 55
[2017-12-09] MEDS: MAGNESIUM OXIDE 500 MG PO SCH ×2 (08:49→21:00)
[2017-12-09] MEDS: HYDROCORTISONE 10 MG TAB PO SCH ×2 (08:49→21:56)
[2017-12-09] MEDS: AMYLASE/LIPASE/PROTEASE CAP PO SCH ×4 (08:49→21:55)
[2017-12-09] MEDS: GABAPENTIN 300 MG CAP PO SCH ×3 (08:49→21:56)
[2017-12-09] MEDS: FUROSEMIDE 20 MG/ 2ML VIAL IV SCH (08:49)
[2017-12-09] MEDS: LOSARTAN POTASSIUM 50 MG TABLET PO SCH (08:49)
[2017-12-09] MEDS: AMLODIPINE 5 MG TAB PO SCH (08:49)
[2017-12-09] MEDS: COLLAGENASE 30 GM OINTMENT TOP SCH (08:50)
[2017-12-09] MEDS: SOMATROPIN SQ SCH (08:50)
--- NOTE | 2017-12-09 09:14 | RAD REPORT ---
EXAM DESCRIPTION: RAD - Chest Single View - 12/09/2017 7:11 am CLINICAL HISTORY: PICC line placement. COMPARISON: None. FINDINGS: Portable chest was obtained following placement of a right upper extremity PICC line. The catheter tip is in the SVC.
--- NOTE | 2017-12-09 12:53 | P.PN ---
Subjective Date of Service: 12/09/17 Primary Care Provider: Dr. Iraheta; Card-Dr. Belcher; Endo-Dr. Mcgregor; GI-Dr. Bush Chief Complaint: Cellulitis bilat lower extremities, infexted venous stasis ulcer Subjective: Tolerating diet, Improving Review of Systems General: Unremarkable Eyes: Unremarkable ENT: Unremarkable Respiratory: Unremarkable Musculoskeletal: As per HPI Integumentary: As per HPI Physical Examination - Vital Signs Temperature: 97.3 F Blood Pressure: 159/74 Pulse: 74 Respirations: 16 Pulse Ox (%): 97 - Physical Exam General: Alert, Oriented x3 HEENT: PERRLA, EOMI Musculoskeletal: Erythema (better), Warmth (better) Integumentary: No rashes - Studies Microbiology Data (last 24 hrs): 12/05/17 21:55 Wound - Right Lower Leg Gram Stain - Final 12/05/17 21:55 Wound - Right Lower Leg Culture & Sensitivity - Final 12/05/17 21:55 Clean Catch Urine [place] Count - Final <10,000 CFU/ML. 12/05/17 21:55 Clean Catch Urine - Final Medications List Reviewed: Yes Assessment And Plan - Plan abx dressing changes rehab f/u at wound healing center in the future leg elevation She eventually will need compression therapy
[2017-12-09] MEDS: VANCOMYCIN 1.5 GM in NA CHLORIDE 0.9% 500 ML IVPB SCH (14:38)
[2017-12-09] MEDS ORDERED: POTASSIUM 25 MEQ EFFERV TAB PO ONE (15:00)
[2017-12-09] MEDS ORDERED: SODIUM CHLORIDE 0.9% 10ML INJ IV PRN ×2 (16:00)
[2017-12-09] MEDS ORDERED: LIDOCAINE 1% MPF 5 ML VIAL IM PRN (16:00)
[2017-12-09] MEDS: WARFARIN SODIUM 3 MG TAB PO SCH (17:52)
[2017-12-09] MEDS: ATORVASTATIN 10 MG TAB PO SCH (21:55)
[2017-12-09] MEDS: FENOFIBRATE 48 MG TAB PO SCH (21:56)
[2017-12-09] MEDS: SODIUM CHLORIDE 0.9% 10ML INJ IV SCH (21:57)
[2017-12-10] MEDS: PIPER/TAZO/NS 3.375gm 3.375 GM/100 ML BAG IVPB SCH ×3 (00:14→17:45)
[2017-12-10] MEDS ORDERED: KCL 20 MEQ/100 mL IVPB 20 MEQ/100 ML BAG IV SCH ×2 (01:00→07:00)
[2017-12-10] MEDS: PANTOPRAZOLE 40MG TABLET PO SCH (05:02)
[2017-12-10] MEDS: LEVOTHYROXINE SOD 0.025 MG TAB PO SCH (05:02)
[2017-12-10] MEDS: LIOTHYRONINE SOD 5 MCG TAB PO SCH (05:03)
[2017-12-10] MEDS: CARVEDILOL 25 MG TAB PO SCH ×2 (05:03→17:44)
[2017-12-10 05:54] LABS: Absolute Lymphocytes (CBC) 0.8 K/uL (0.7-4.9); Absolute Monocytes 0.4 K/uL (0.1-1.3); Absolute Neutrophil 4.8 K/uL (1.8-8.0); Basophils % 0.2 % (0-1.3); Eosinophils % 1.5 % (0-4.4); Hematocrit 31.6 % (36.0-45.0); Lymphocytes % 12.7 % (15.3-44.8); MCH 32.5 pg (27.0-35.0); MCV 98.1 fL (80-100); MPV 10.3 fL (7.6-11.3); Monocytes % 7.1 % (3.3-12.3); Protime INR 1.77; RBC Red Blood Cell Count 3.22 M/uL (3.86-4.86)
[2017-12-10 05:56] LABS: Magnesium 1.7 mg/dL (1.8-2.5); Potassium 3.8 mEq/L (3.6-5.0)
[2017-12-10] MEDS ORDERED: MAGNESIUM SULFATE 1 gm IVPB 1 GM/100 ML BAG IV ONE (06:05)
[2017-12-10 06:25] VITALS: BMI 34.3
[2017-12-10] MEDS: AMYLASE/LIPASE/PROTEASE CAP PO SCH ×4 (07:30→20:58)
[2017-12-10] MEDS: INSULIN -REGULAR HUMAN 50 UNIT/0.5 ML ML SQ SCH ×4 (07:30→21:00)
[2017-12-10] MEDS: MAGNESIUM OXIDE 500 MG PO SCH ×2 (09:00→21:00)
[2017-12-10] MEDS: SODIUM CHLORIDE 0.9% 10ML INJ IV SCH ×2 (09:00→20:59)
[2017-12-10] MEDS: AMLODIPINE 5 MG TAB PO SCH (09:03)
[2017-12-10] MEDS: FUROSEMIDE 20 MG TABLET PO SCH (09:03)
[2017-12-10] MEDS: GABAPENTIN 300 MG CAP PO SCH ×3 (09:04→20:59)
[2017-12-10] MEDS: HYDROCORTISONE 10 MG TAB PO SCH ×2 (09:04→21:00)
[2017-12-10] MEDS: LOSARTAN POTASSIUM 50 MG TABLET PO SCH (09:04)
[2017-12-10] MEDS: SOMATROPIN SQ SCH (09:05)
--- NOTE | 2017-12-10 11:07 | P.PN ---
Subjective Date of Service: 12/10/17 (Hospitalist note) Primary Care Provider: Dr. Iraheta; Card-Dr. Belcher; Endo-Dr. Mcgregor; GI-Dr. Bush Chief Complaint: Cellulitis bilat lower extremities, infexted venous stasis ulcer Subjective: Improving (Patient is doing well no complaints her pain is improved on IV antibiotic) Review of Systems Unremarkable Physical Examination - Vital Signs Temperature: 97.9 F Blood Pressure: 124/69 Pulse: 80 Respirations: 17 Pulse Ox (%): 93 - Physical Exam General: Alert, Oriented x3 Neck: Supple Respiratory: Clear to auscultation bilaterally Cardiovascular: Edema (Still has bilateral edema) Musculoskeletal: Other (Left leg is red edematous according to the patient has improved right calf is covered with bandages) - Studies Medications List Reviewed: Yes Assessment & Plan - Problems (Diagnosis) (1) Cellulitis of right lower extremity Onset Date: 01/20/16 Current Visit: No Status: Acute Plan: Patient is 77 years of age admitted with cellulitis status post a bright meant on IV antibiotics this is a so far negative seen by ID is currently on vancomycin and Zosyn labs reviewed patient is mildly anemic awaiting fpc placement patient has a PICC line meds and labs reviewed patient is chronically anti coagulated due to AFib a she also has pituitary insuff.
[2017-12-10] MEDS: COLLAGENASE 30 GM OINTMENT TOP SCH (11:20)
[2017-12-10] MEDS: VANCOMYCIN 1.5 GM in NA CHLORIDE 0.9% 500 ML IVPB SCH (14:51)
[2017-12-10] MEDS: WARFARIN SODIUM 3 MG TAB PO SCH (17:44)
[2017-12-10] MEDS: FENOFIBRATE 48 MG TAB PO SCH (20:59)
[2017-12-10] MEDS: ATORVASTATIN 10 MG TAB PO SCH (21:00)
[2017-12-11] MEDS: PIPER/TAZO/NS 3.375gm 3.375 GM/100 ML BAG IVPB SCH ×2 (00:18→08:27)
[2017-12-11] MEDS: LEVOTHYROXINE SOD 0.025 MG TAB PO SCH (05:25)
[2017-12-11] MEDS: CARVEDILOL 25 MG TAB PO SCH ×2 (05:25→17:27)
[2017-12-11] MEDS: LIOTHYRONINE SOD 5 MCG TAB PO SCH (05:25)
[2017-12-11] MEDS: PANTOPRAZOLE 40MG TABLET PO SCH (05:26)
[2017-12-11 05:46] LABS: Magnesium 1.8 mg/dL (1.8-2.5); Potassium 3.5 mEq/L (3.6-5.0)
[2017-12-11] MEDS ORDERED: MAGNESIUM SULFATE 1 gm IVPB 1 GM/100 ML BAG IV ONE (06:42)
[2017-12-11] MEDS ORDERED: POTASSIUM CL SA 10 MEQ TAB PO ONE (06:43)
[2017-12-11] MEDS: INSULIN -REGULAR HUMAN 50 UNIT/0.5 ML ML SQ SCH ×4 (07:30→21:00)
[2017-12-11] MEDS: GABAPENTIN 300 MG CAP PO SCH ×3 (08:25→21:32)
[2017-12-11] MEDS: LOSARTAN POTASSIUM 50 MG TABLET PO SCH (08:25)
[2017-12-11] MEDS: FUROSEMIDE 20 MG TABLET PO SCH (08:25)
[2017-12-11] MEDS: AMLODIPINE 5 MG TAB PO SCH (08:26)
[2017-12-11] MEDS: HYDROCORTISONE 10 MG TAB PO SCH ×2 (08:26→21:36)
[2017-12-11] MEDS: AMYLASE/LIPASE/PROTEASE CAP PO SCH ×4 (08:26→21:32)
[2017-12-11] MEDS: SOMATROPIN SQ SCH (08:27)
--- NOTE | 2017-12-11 08:52 | P.PN ---
Subjective Date of Service: 12/11/17 Primary Care Provider: Dr. Iraheta; Card-Dr. Belcher; Endo-Dr. Mcgregor; GI-Dr. Bush Chief Complaint: Cellulitis bilat lower extremities, infexted venous stasis ulcer Subjective: Improving (Improving well-no new complaints on IV antibiotics) Review of Systems Unremarkable Physical Examination - Vital Signs Temperature: 97.6 F Blood Pressure: 139/70 Pulse: 81 Respirations: 18 Pulse Ox (%): 95 - Physical Exam General: Alert, Oriented x3 Respiratory: Clear to auscultation bilaterally Cardiovascular: Edema (She still has some redness on the a left leg although is not as tender) - Studies Microbiology Data (last 24 hrs): 12/05/17 11:30 Blood - Other Aerobic Blood Culture - Final No growth in 5 days. 12/05/17 11:30 Blood - Other Anaerobic Blood Culture - Final No growth in 5 days. 12/05/17 11:15 Blood - Other Aerobic Blood Culture - Final No growth in 5 days. 12/05/17 11:15 Blood - Other Anaerobic Blood Culture - Final No growth in 5 days. Medications List Reviewed: Yes Assessment & Plan - Problems (Diagnosis) (1) Cellulitis of right lower extremity Onset Date: 01/20/16 Current Visit: No Status: Acute Plan: Patient is doing well no new complaints tolerating antibiotics awaiting placement for continuing IV antibiotics she has a PICC line in place denies any pain vital signs are satisfactory mildly anemic labs reviewed
[2017-12-11] MEDS: MAGNESIUM OXIDE 500 MG PO SCH ×2 (09:00→21:00)
[2017-12-11] MEDS: SODIUM CHLORIDE 0.9% 10ML INJ IV SCH ×2 (09:00→21:00)
[2017-12-11] MEDS: COLLAGENASE 30 GM OINTMENT TOP SCH (11:49)
[2017-12-11] MEDS: DIPHENHYDRAMINE 25 MG TAB/CAP PO PRN ×2 (14:04→21:32)
[2017-12-11] MEDS ORDERED: DIPHENHYDRAMINE 25 MG TAB/CAP ONE (14:20)
[2017-12-11] MEDS ORDERED: PIPER/TAZO/NS 3.375gm 3.375 GM/100 ML BAG IVPB SCH (17:00)
[2017-12-11] MEDS: WARFARIN SODIUM 3 MG TAB PO SCH (17:27)
[2017-12-11] MEDS: FENOFIBRATE 48 MG TAB PO SCH (21:32)
[2017-12-11] MEDS: ATORVASTATIN 10 MG TAB PO SCH (21:32)
[2017-12-11 21:35] VITALS: O2SAT 95
[2017-12-12] MEDS: DIPHENHYDRAMINE 25 MG TAB/CAP PO PRN (04:01)
[2017-12-12 05:22] LABS: Magnesium 1.8 mg/dL (1.8-2.5); Potassium 3.2 mEq/L (3.6-5.0)
[2017-12-12] MEDS: PANTOPRAZOLE 40MG TABLET PO SCH (05:30)
[2017-12-12] MEDS: CARVEDILOL 25 MG TAB PO SCH ×2 (05:30→17:18)
[2017-12-12] MEDS: LIOTHYRONINE SOD 5 MCG TAB PO SCH (05:30)
[2017-12-12] MEDS: LEVOTHYROXINE SOD 0.025 MG TAB PO SCH (05:30)
[2017-12-12] MEDS ORDERED: MAGNESIUM SULFATE 1 gm IVPB 1 GM/100 ML BAG IV ONE (06:15)
[2017-12-12] MEDS: KCL 20 MEQ/100 mL IVPB 20 MEQ/100 ML BAG IV SCH ×2 (06:45→09:04)
[2017-12-12] MEDS ORDERED: NA CHLORIDE 0.9% 250 ML ONE (06:50)
[2017-12-12] MEDS ORDERED: NA CHLORIDE 0.9% 100 ML ONE (07:08)
[2017-12-12] MEDS: INSULIN -REGULAR HUMAN 50 UNIT/0.5 ML ML SQ SCH ×3 (07:30→16:43)
[2017-12-12 08:20] LABS: Protime INR 1.82
[2017-12-12] MEDS ORDERED: CETIRIZINE HCL 5 MG TABLET PO SCH (09:00)
[2017-12-12] MEDS ORDERED: FAMOTIDINE 20 MG TAB PO SCH (09:00)
[2017-12-12] MEDS: MAGNESIUM OXIDE 500 MG PO SCH (09:00)
[2017-12-12] MEDS: SODIUM CHLORIDE 0.9% 10ML INJ IV SCH (09:00)
[2017-12-12] MEDS: HYDROCORTISONE 10 MG TAB PO SCH (09:02)
[2017-12-12] MEDS: AMLODIPINE 5 MG TAB PO SCH (09:03)
[2017-12-12] MEDS: LOSARTAN POTASSIUM 50 MG TABLET PO SCH (09:03)
[2017-12-12] MEDS: FUROSEMIDE 20 MG TABLET PO SCH (09:03)
[2017-12-12] MEDS: AMYLASE/LIPASE/PROTEASE CAP PO SCH ×3 (09:03→16:43)
[2017-12-12] MEDS: GABAPENTIN 300 MG CAP PO SCH ×2 (09:03→13:21)
[2017-12-12] MEDS: COLLAGENASE 30 GM OINTMENT TOP SCH (09:04)
[2017-12-12] MEDS: SOMATROPIN SQ SCH (09:08)
--- NOTE | 2017-12-12 11:54 | P.PN ---
Subjective Date of Service: 12/12/17 Primary Care Provider: Dr. Iraheta; Card-Dr. Belcher; Endo-Dr. Mcgregor; GI-Dr. Bush Chief Complaint: Cellulitis bilat lower extremities, infexted venous stasis ulcer Subjective: Improving (Patient did have a rash that started yesterday. Etiology unknown.) Physical Examination - Vital Signs Temperature: 97.7 F Blood Pressure: 145/63 Pulse: 96 Respirations: 16 Pulse Ox (%): 94 - Physical Exam General: Alert, In no apparent distress, Oriented x3, Cooperative HEENT: Atraumatic Neck: Supple Respiratory: Clear to auscultation bilaterally, Normal air movement Cardiovascular: Normal pulses, Regular rate/rhythm Gastrointestinal: Normal bowel sounds, Soft and benign, Non-distended Musculoskeletal: Other (Erythema to the left lower extremity improved. Edema to the left lower extremity also improved.) Integumentary: Other (Macular papular rash to the abdomen and lower extremities improved.) Neurological: Normal speech, Normal strength at 5/5 x4 extr, Normal tone, Normal affect - Studies Medications List Reviewed: Yes Assessment & Plan - Problems (Diagnosis) (1) Ulcer Onset Date: 12/06/17 Current Visit: Yes Status: Acute Plan: Patient had rash. IV antibiotic therapy on hold. There may be some difficulty in sending the patient to a skilled facility as 1 of her medications is very expensive. Will discuss with infectious disease about possible discharge home with oral antibiotic therapy. Possible discharge today. (2) Adrenal insufficiency Onset Date: 12/06/17 Current Visit: Yes Status: Chronic Plan: Will continue with her steroid medication. (3) Chronic use of steroids Onset Date: 12/06/17 Current Visit: Yes Status: Chronic Plan: Continue with her medication. (4) Atrial fibrillation Onset Date: 12/30/16 Current Visit: No Status: Chronic Plan: Patient in normal sinus rhythm. Will continue with medication. Patient on chronic anti coagulation therapy. Qualifiers: Atrial fibrillation type: chronic Qualified Code(s): I48.2 - Chronic atrial fibrillation (5) Cellulitis Onset Date: 12/30/16 Current Visit: No Status: Acute Plan: This has significantly improved. Will discuss with infectious disease about possible discharge on oral antibiotic therapy. Continue with current wound care. Qualifiers: Site of cellulitis: extremity Site of cellulitis of extremity: lower extremity Laterality: unspecified laterality Qualified Code(s): L03.119 - Cellulitis of unspecified part of limb (6) Chronic anticoagulation Onset Date: 01/20/16 Current Visit: No Status: Chronic Plan: Patient on Coumadin at this time. Will adjust appropriately. (7) Diabetes mellitus Onset Date: 12/30/16 Current Visit: No Status: Chronic Plan: Will continue with sliding scale. Will monitor closely. 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 Qualifiers: Hyperlipidemia type: unspecified Qualified Code(s): E78.5 - Hyperlipidemia , unspecified (9) Hypertension Onset Date: 01/20/16 Current Visit: No Status: Chronic Plan: Will continue with her medication. Qualifiers: Hypertension type: essential hypertension Qualified Code(s): I10 - Essential (primary) hypertension (10) Hypothyroidism Onset Date: 01/20/16 Current Visit: No Status: Chronic Plan: Will continue with her medication Qualifiers: Hypothyroidism type: unspecified Qualified Code(s): E03.9 - Hypothyroidism , unspecified (11) Obesity Current Visit: Yes Status: Acute Plan: Will address lifestyle modification education. Qualifiers: Obesity type: due to excess calories Obesity classification: adult class 1 (BMI 30 - 34.9) Serious obesity comorbidity presence: with serious comorbidity Body mass index: BMI 34.0-34.9 Qualified Code(s): E66.09 - Other obesity due to excess calories; Z68.34 - Body mass index (BMI) 34.0-34.9, adult; Z68.34 - Body mass index (BMI) 34.0-34.9, adult (12) Anemia Onset Date: 01/31/15 Current Visit: No Status: Chronic Plan: Likely of chronic disease. Will monitor closely. Qualifiers: Anemia type: other cause Other causes of anemia: chronic disease, other Qualified Code(s): D63.8 - Anemia in other chronic diseases classified elsewhere (13) Acute diarrhea Current Visit: Yes Status: Acute Plan: Patient reports diarrhea. Will check for C. diff. Patient reports this is loose likely from dietary changes. Will monitor closely. (14) Dermatitis Current Visit: Yes Status: Acute Plan: Likely allergic reaction to 1 of the antibiotics. Will discuss with infectious disease. Discharge Plan: Home Plan to discharge in: 24 Hours Time Spent Managing Pts Care (In Minutes): 55
--- NOTE | 2017-12-12 16:46 | P.DS ---
Admission Date: 12/06/17 Discharge Date: 12/12/17 Primary Care Provider: Dr. Iraheta; Card-Dr. Belcher; Endo-Dr. Mcgregor; GI-Dr. Bush Disposition: ROUTINE DISCHARGE Discharge Condition: GOOD Reason for Admission: Cellulitis bilat lower extremities, infexted venous stasis ulcer Consultations: Surgery-Dr. Rushing Infectious disease-Dr. Martin Procedures: Irrigation debridement of stasis ulcer to the right lower extremity - Problems (1) Ulcer Onset Date: 12/06/17 Current Visit: Yes Status: Acute (2) Adrenal insufficiency Onset Date: 12/06/17 Current Visit: Yes Status: Chronic (3) Chronic use of steroids Onset Date: 12/06/17 Current Visit: Yes Status: Chronic (4) Atrial fibrillation Onset Date: 12/30/16 Current Visit: No Status: Chronic Qualifiers: Atrial fibrillation type: chronic Qualified Code(s): I48.2 - Chronic atrial fibrillation (5) Cellulitis Onset Date: 12/30/16 Current Visit: No Status: Acute Qualifiers: Site of cellulitis: extremity Site of cellulitis of extremity: lower extremity Laterality: unspecified laterality Qualified Code(s): L03.119 - Cellulitis of unspecified part of limb (6) Chronic anticoagulation Onset Date: 01/20/16 Current Visit: No Status: Chronic (7) Diabetes mellitus Onset Date: 12/30/16 Current Visit: No Status: Chronic Qualifiers: Diabetes mellitus type: type 2 Diabetes mellitus salvage determiner insulin use: without salvage determiner use Diabetes mellitus complication status: with unspecified complications Qualified Code(s): E11.8 - Type 2 diabetes mellitus with unspecified complications (8) Hyperlipidemia Onset Date: 01/20/16 Current Visit: No Status: Chronic Qualifiers: Hyperlipidemia type: unspecified Qualified Code(s): E78.5 - Hyperlipidemia , unspecified (9) Hypertension Onset Date: 01/20/16 Current Visit: No Status: Chronic Qualifiers: Hypertension type: essential hypertension Qualified Code(s): I10 - Essential (primary) hypertension (10) Hypothyroidism Onset Date: 01/20/16 Current Visit: No Status: Chronic Qualifiers: Hypothyroidism type: unspecified Qualified Code(s): E03.9 - Hypothyroidism , unspecified (11) Obesity Current Visit: Yes Status: Acute Qualifiers: Obesity type: due to excess calories Obesity classification: adult class 1 (BMI 30 - 34.9) Serious obesity comorbidity presence: with serious comorbidity Body mass index: BMI 34.0-34.9 Qualified Code(s): E66.09 - Other obesity due to excess calories; Z68.34 - Body mass index (BMI) 34.0-34.9, adult; Z68.34 - Body mass index (BMI) 34.0-34.9, adult (12) Anemia Onset Date: 01/31/15 Current Visit: No Status: Chronic Qualifiers: Anemia type: other cause Other causes of anemia: chronic disease, other Qualified Code(s): D63.8 - Anemia in other chronic diseases classified elsewhere (13) Acute diarrhea Current Visit: Yes Status: Acute (14) Dermatitis Current Visit: Yes Status: Acute Brief History of Present Illness: 77-year-old female presented emergency room with multiple complaints including pain, erythema to the lower extremities bilateral. She also has an ulcer to the right lower extremity. Patient has noted increasing edema to the lower extremities over the past 3 weeks. The patient has chronic lymphedema. She reports that her leg has been weeping. Over the last several days she has noted increasing erythema bilaterally but more so on the left side. She also reports pain to the left ankle region. She further reports that she had a puncture wound to the left ankle with a thorn. This was removed. There is also a ulcer to the right lower extremity that has been present for quite some time. She has been doctoring it herself. She reports mild fever. She has been feeling weak. In the ER the patient was evaluated. Erythema was noted to the left lower extremity. White count 9.2, pro calcitonin unremarkable. Cellulitis was identified including ulcer to the right lower extremity. The patient was admitted for further evaluation and treatment. When I saw the patient ER, she appeared comfortable but had pain to the left ankle region. Patient has multiple medical problem. Patient is seen by multiple specialists including endocrinology, GI, cardiology. Hospital Course: During her stay the patient presented with cellulitis to the lower extremities and chronic stasis ulcer to the right lower extremity. Patient had debridement by surgery. The patient was evaluated by infectious disease. Patient receive IV antibiotic therapy. This was eventually changed to oral medication. Patient did have a reaction likely related to 1 of the antibiotics that appear to be an allergy. At discharge patient will continue with Bactrim DS 1 pill twice daily for 14 days. Patient seen and evaluated by surgery and infectious disease. Recommendation is the patient to continue with wound care. Recommendations for the patient follow up with infectious disease at the wound Care [facility] every week. Recommendation is to recheck lab-CBC, INR and BMP twice a week since the patient will be on Bactrim. Please note patient is on Coumadin for atrial fibrillation. Patient has hypertension. Blood pressure remained stable during the course of her stay. Patient will continue with her current medications. Recommendation is to maintain blood pressures less 150/80. Further adjustment can be done by her PCP. Patient has diabetes. Blood sugars were well controlled during her stay. Patient will continue with her medication. Recommendation is to maintain blood sugars less than 140 fasting and less than 200 after meals. Further adjustment can be done by her PCP. Patient has adrenal insufficiency and takes chronic steroids. She will continue with her medication. 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 Patient continue with a 1500 cc per day fluid restriction. Patient will start Lasix 20 mg daily. Patient is to monitor her edema and weight. Medication may need to be adjusted by her PCP if this improves. Patient has hypothyroidism. Patient will continue with her medication. Patient has atrial fibrillation on chronic anti coagulation therapy. She will continue with Coumadin. Lab will need to be monitored closely since the patient will be on Bactrim. Recommendation is to recheck lab-CBC, BMP and INR twice a week Vital Signs/Physical Exam: Temp Pulse Resp BP Pulse Ox 97.7 F 80 16 132/60 95 12/12/17 12:00 12/12/17 12:00 12/12/17 12:00 12/12/17 12:12/12/17 12:00 General: Alert, In no apparent distress, Oriented x3, Cooperative HEENT: Atraumatic Neck: Supple Respiratory: Clear to auscultation bilaterally, Normal air movement Cardiovascular: Normal pulses, Regular rate/rhythm Gastrointestinal: Normal bowel sounds, Soft and benign, Non-distended Musculoskeletal: No warmth Integumentary: Other (Ulcer to the right lower extremity improved. Erythema to the left lower extremity improved. Less pitting edema to the left lower extremity) Neurological: Normal speech, Normal strength at 5/5 x4 extr, Normal tone, Normal affect Lymphatics: No axilla or inguinal lymphadenopathy Laboratory Data at Discharge: WBC 6.1 K/uL (4.3-10.9) D 12/10/17 05:00 Hgb 10.5 g/dL (12.0-15.0) L 12/10/17 05:00 Hct 31.6 % (36.0-45.0) L 12/10/17 05:00 Plt Count 105 K/uL (152-406) L 12/10/17 05:00 PT 21.6 SECONDS (9.5-12.5) H 12/12/17 08:02 INR 1.82 12/12/17 08:02 APTT 26.2 SECONDS (24.3-36.9) 12/05/17 11:15 Sodium 143 mEq/L (135-145) 12/12/17 04:35 Potassium 3.2 mEq/L (3.6-5.0) L 12/12/17 04:35 BUN 13 mg/dL (6-20) 12/12/17 04:35 Creatinine 0.76 mg/dL (0.44-1.00) 12/12/17 04:35 Glucose 168 mg/dL (65-120) H 12/12/17 04:35 Magnesium 1.8 mg/dL (1.8-2.5) 12/12/17 04:35 Total Bilirubin 0.8 mg/dL (0.3-1.2) 12/05/17 12:35 AST 17 IU/L (10-42) 12/05/17 12:35 ALT 18 IU/L (10-60) 12/05/17 12:35 Alkaline Phosphatase 34 IU/L (42-121) L 12/05/17 12:35 Troponin I < 0.03 ng/mL (<0.03) 12/07/17 13:57 B-Natriuretic Peptide 197 pg/ml (<=100) H 12/05/17 11:15 Amylase 73 U/L (28-100) 12/05/17 12:35 Lipase 60 U/L (22-51) H 12/05/17 12:35 Home Medications: Amlodipine [Norvasc*] 5 mg PO DAILY 01/24/16 Atorvastatin Calcium [Lipitor*] 10 mg PO BEDTIME 01/24/16 Calcium Carbonate/Vitamin D3 [Calcium 500-Vit D3 400 Tablet] 1 tab PO DAILY Carvedilol [Coreg*] 25 mg PO TID 01/24/16 Fenofibrate 48 mg PO DAILY 01/24/16 Gabapentin [Neurontin] 600 mg PO BID 01/24/16 Hydrocortisone [Cortef*] 20 mg PO BID 01/24/16 Linagliptin [Tradjenta] 5 mg PO DAILY 01/24/16 Losartan Potassium [Cozaar] 100 mg PO DAILY 01/24/16 Magnesium Oxide [Laxative Dietary Supplement] 500 mg PO BID 01/24/16 Potassium Oral Tab [Klor-Con 10 mEq Tab*] 20 meq PO DAILY 01/24/16 Somatropin [Omnitrope] 0.3 mg SQ DAILY 01/24/16 Warfarin Sodium [Coumadin] 3 mg PO DAILY 02/06/16 Glipizide [Glipizide Xl] 1 tab PO DAILY 12/29/16 Lipase/Protease/Amylase [Aida Dr 12,000 Units Capsule] 1 tab PO TID 12/29/16 Levothyroxine [Synthroid*] 1 tab PO DAILY 02/10/17 Dexlansoprazole [Dexilant] 60 mg PO DAILY 12/05/17 Liothyronine Sodium [Cytomel] 5 mcg PO DAILY 12/05/17 Furosemide [Lasix] 20 mg PO DAILY #30 tab 12/12/17 Smz./Tmp. [Bactrim Ds 800 MG/160 MG*] 1 tab PO BID #28 tab 12/12/17 New Medications: Furosemide [Lasix] 20 mg PO DAILY #30 tab Smz./Tmp. [Bactrim Ds 800 MG/160 MG*] 1 tab PO BID #28 tab Patient Discharge Instructions: 1. Follow up with PCP within 2 days to follow up this hospitalization. 2. Patient presented with cellulitis to the lower extremities with chronic stasis ulcer to the right lower extremity. Patient had debridement. At discharge patient will continue with Bactrim DS 1 pill twice daily for 14 days. Patient seen and evaluated by surgery and infectious disease. Recommendation is the patient to continue with wound care. Recommendations for the patient follow up with infectious disease at the wound Care Center every week. Recommendation is to recheck lab-CBC and BMP twice a week since the patient will be on Bactrim. 3. Patient has hypertension. Patient will continue with her current medications. Recommendation is to maintain blood pressures less 150/80. Further adjustment can be done by her PCP. 4. Patient has diabetes. Patient will continue with her medication. Recommendation is to maintain blood sugars less than 140 fasting and less than 200 after meals. Further adjustment can be done by her PCP. 5. Patient has adrenal insufficiency and takes chronic steroids. She will continue with her medication. 6. Patient has underlying edema to the lower extremities. Patient continue with a 1500 cc per day fluid restriction. Patient will start Lasix 20 mg daily. Patient is to monitor her edema and weight. Medication may need to be adjusted by her PCP if this improves. 7. Patient has hypothyroidism. Patient will continue with her medication. 8. Patient has atrial fibrillation on chronic anti coagulation therapy. She will continue with Coumadin. Lab will need to be monitored closely since the patient will be on Bactrim. Recommendation is to recheck lab-CBC, BMP and INR twice a week Diet: ADA Activity: Fall precautions Time spent managing pt's care (in minutes): 55
[2017-12-12 17:18] VITALS: BP 147/67
[2017-12-12 18:01] VITALS: TEMP 97.6
[2017-12-12] MEDS ORDERED: SMZ./TMP. 800/160 MG TABLET PO SCH (21:00)
--- NOTE | 2017-12-13 05:40 | OP ---
Date of Procedure: 12/06/2017 Surgeon: Arash Rushing MD Preoperative Diagnoses: Necrotic infected right leg venous ulcer, left leg cellulitis. Postoperative Diagnoses: Necrotic infected right leg venous ulcer, left leg cellulitis. Procedure: Excisional debridement of subcutaneous necrotic infected right leg venous ulcer 4 x 5 x 1 cm. Estimated Blood Loss: Less than 10 cc. Finding: Necrotic infected right leg venous ulcer. Anesthesia: General plus local. Indications: This is the case of a female, who comes to us with cellulitis of the bilateral lower ex tremities. She also has a right venous necrotic ulcer that needs debridement. Benefits, alternative s, and risks of debridement fully explained to the patient, which include but are not limited to infe ction, bleeding, damage to adjacent structures, nonhealing wound, [place], and even . She also under stands this may not relieve any symptoms. She might need more than one surgical intervention. It wa s explained to her the concept of venous stasis disease and the importance of being in a long-term co mpression therapy. She understood also the importance of losing weight. She was consult for weight loss. She signed a consent. Procedure In Detail: The patient's area was marked. The patient was brought to the operating room a nd placed in supine position. Anesthesia was done without complication. A time-out was called. Rig ht neck was prepped and draped in a sterile fashion. Using a sharp knife, we proceeded to do subcuta neous debridement of the right venous necrotic ulcer about 4 x 5 x 1 cm. The area was irrigated. He mostasis obtained. The area was packed with wet-to-dry dressing. The patient tolerated the procedure well. The patient was sent to recovery in stable condition. PINO/AZIZA Voice ID: [id number] Report ID: [id number]
== END 2017-12-12 17:50 | disposition home or self-care (01) | DRG 264 ==
LOC: ER 10:55 → ERHOLD 12:30 → 2ND 13:52 → OBSVTOIN 12-06 08:48
PROVIDERS: ADMIT Family Medicine; ATTEND Family Medicine
PROC: 0JBN0ZZ Excision of Right Lower Leg Subcutaneous Tissue and Fascia, Open Approach (ICD-10-PCS; principal; 2017-12-06 09:30)
DX: I83.018 Varicose veins of right lower extremity with ulcer other part of lower leg (principal); L97.819 Non-pressure chronic ulcer of other part of right lower leg with unspecified severity; L03.119 Cellulitis of unspecified part of limb; E27.40 Unspecified adrenocortical insufficiency; E11.9 Type 2 diabetes mellitus without complications; I10 Essential (primary) hypertension; E03.9 Hypothyroidism, unspecified; I48.2 Chronic atrial fibrillation; E78.5 Hyperlipidemia, unspecified; Z79.52 Long term (current) use of systemic steroids; F41.9 Anxiety disorder, unspecified
CPT/HCPCS: 36415; 71045; 71046; 80048; 80076; 80202; 81003; 81015; 82150; 82550; 82553; 82962; 83605; 83690; 83735; 83880; 84132; 84145; 84484; 85025; 85610; 85652; 85730; 86140; 87040; 87045; 87046; 87070; 87086; 87088; 87205; 87493; 93005; 93970; 99285; G0378; J1940; J2405; J2543; J3010; J3475; J3590; J7030

== ENCOUNTER 2018-01-07 03:58 | Inpatient (IN) | payer OTHER ==
[2018-01-07] MEDS ORDERED: NA CHLORIDE 0.9% 1,000 ML ONE ×2 (04:23→05:27)
[2018-01-07] MEDS ORDERED: IBUPROFEN 200 MG TAB PO ONE (04:30)
[2018-01-07 04:59] LABS: Absolute Lymphocytes (CBC) 0.5 K/uL (0.7-4.9); Absolute Neutrophil 3.6 K/uL (1.8-8.0); Basophils % 0.1 % (0-1.3); Lymphocytes % 12.4 % (15.3-44.8); MCH 32.5 pg (27.0-35.0); MCV 99.2 fL (80-100); MPV 10.4 fL (7.6-11.3); Monocytes % 0.5 % (3.3-12.3); RBC Red Blood Cell Count 4.03 M/uL (3.86-4.86)
[2018-01-07 04:59] LABS: Protime INR 1.5
[2018-01-07 05:12] LABS: Albumin 3.5 g/dL (3.2-5.5); Bilirubin Direct 0.2 mg/dL (0-0.2); Bilirubin Total 0.8 mg/dL (0.3-1.2); Protein, Total 6.7 g/dL (6.0-8.3)
[2018-01-07 05:15] LABS: Urine Blood 2+ (NEG); Urine Glucose NEGATIVE (NEG); Urine Protein 1+ (NEG)
[2018-01-07 05:15] LABS: Potassium 3.9 mEq/L (3.6-5.0)
[2018-01-07] MEDS ORDERED: VANCOMYCIN/NS 1 gm 1 GM/250 ML BAG ONE (05:27)
[2018-01-07] MEDS ORDERED: PIPER/TAZO/NS 3.375gm 3.375 GM/100 ML BAG ONE (05:28)
[2018-01-07 05:32] LABS: Blood Morphology Comment NOT SEEN (NOT SEEN); Platelet Estimate DECR; Urine White Blood Cell Casts OK
--- NOTE | 2018-01-07 06:20 | EDPHYS ---
Physician Documentation [facility] Name: Emelia Payan Age: 77 yrs Sex: Female : 1940 Arrival Date: 01/07/2018 Time: 04:00 Bed 3 Private MD: ED Physician Dhaval Hudson HPI: 01/07 06:34 This 77 yrs old Female presents to ER via Ambulatory with complaints of gs Breathing Difficulty, Fever, Chills. 06:34 This 77 yrs old Female presents to ER via Ambulatory with complaints of gs Breathing Difficulty, Fever, Chills. 06:35 Onset: The symptoms/episode began/occurred 2 day(s) ago, and became worse. Modifying gs factors: there are no obvious modifying factors. Associated signs and symptoms: Pertinent positives: chills, shortness of breath. Severity of symptoms: At their worst the symptoms were moderate in the emergency department the symptoms are unchanged. The patient has experienced similar episodes in the past, a few times. The patient has been recently been admitted at [facility], was discharged last month. Historical: - Allergies: 04:41 Cipro; ao 04:41 Xarelto; ao - Home Meds: 04:41 amlodipine 5 mg tab 1 tab once daily [Active]; atorvastatin 10 mg Oral tab 1 tab once ao daily [Active]; carvedilol 25 mg Oral tab three times a day [Active]; Dexilant 60 mg Oral CpDB 1 cap once daily [Active]; Creon 12,000-38,000 -60,000 unit Oral cpDR 3 times per day [Active]; fenofibrate 48 mg Oral once daily [Active]; gabapentin 600 mg Oral tab 1 tab 3 times per day [Active]; glipizide 2.5 mg Oral tr24 once daily [Active]; hydrocortisone 10 mg Oral tab 4 tabs 2 times per day [Active]; levothyroxine 125 mcg tab 1 tab once daily [Active]; liothyronine 5 mcg Oral tab 1 tab once daily [Active]; losartan 100 mg Oral tab 1 tab once daily [Active]; magnesium oxide 500 mg Oral cap twice a day [Active]; Omnitrope subcutaneous once daily [Active]; potassium chloride 20 mEq Oral TbER once daily [Active]; Tradjenta 5 mg Oral tab 1 tab once daily [Active]; Vitamin D Oral 75532 unit every 15 days [Active]; warfarin 3 mg Oral tab 1 tab once daily [Active]; - PMHx: 04:41 adrenal insuficiency; CHF; Diabetes - IDDM; DVT; Hyperlipidemia; Hypertension; ao Hypothyroidism; - PSHx: 04:41 Unable to obtain; ao - Immunization history:: Adult Immunizations unknown. - Social history:: Smoking status: Patient/guardian denies using tobacco, Patient/guardian denies using alcohol, street drugs. ROS: 06:35 All other systems are negative. gs Exam: 06:24 ECG was reviewed by the Attending Physician. gs 06:35 Head/Face: Normocephalic, atraumatic. Eyes: Pupils equal round and reactive to light, gs extra-ocular motions intact. Lids and lashes normal. Conjunctiva and sclera are non-icteric and not injected. Cornea within normal limits. Periorbital areas with no swelling, redness, or edema. ENT: Nares patent. No nasal discharge, no septal abnormalities noted. Tympanic membranes are normal and external auditory canals are clear. Oropharynx with no redness, swelling, or masses, exudates, or evidence of obstruction, uvula midline. Mucous membranes moist. Neck: Trachea midline, no thyromegaly or masses palpated, and no cervical lymphadenopathy. Supple, full range of motion without nuchal rigidity, or vertebral point tenderness. No Meningismus. Chest/axilla: Normal chest wall appearance and motion. Nontender with no deformity. No lesions are appreciated. 06:35 Abdomen/GI: Soft, non-tender, with normal bowel sounds. No distension or tympany. No guarding or rebound. No evidence of tenderness throughout. Back: No spinal tenderness. No costovertebral tenderness. Full range of motion. Skin: Warm, dry with normal turgor. Normal color with no rashes, no lesions, and no evidence of cellulitis. 06:35 Neuro: Awake and alert, GCS 15, oriented to person, place, time, and situation. Cranial nerves II-XII grossly intact. Motor strength 5/5 in all extremities. Sensory grossly intact. Cerebellar exam normal. Normal gait. 06:35 Constitutional: The patient appears alert, awake. 06:35 Cardiovascular: Rate: tachycardic, Rhythm: regular, Pulses: no pulse deficits are appreciated. 06:35 Respiratory: the patient does not display signs of respiratory distress, Breath sounds: are clear throughout. 06:35 Musculoskeletal/extremity: Extremities: noted in the right leg and left leg: erythema, swelling, tenderness, Circulation is intact in all extremities. 06:38 Musculoskeletal/extremity: wound left leg chronic drainiing. gs Vital Signs: 04:13 BP 124 / 87; Pulse 107; Resp 20; Temp 99.0(O); Pulse Ox 98% on R/A; Weight 91.17 kg ao (R); Height 5 ft. 4 in. (162.56 cm) (R); Pain 0/10; 05:06 BP 138 / 57; Pulse 106; Resp 22; Pulse Ox 98% on 2 lpm NC; Pain 0/10; tl1 05:55 BP 97 / 44; Pulse 96; Resp 18; Temp 99.6(T); Pulse Ox 99% on R/A; ao 06:06 BP 103 / 44; Pulse 97; Resp 14; Pulse Ox 100% on 2 lpm NC; Pain 0/10; tl1 06:58 BP 84 / 41; Pulse 100; Resp 15; Pulse Ox 99% on 2 lpm NC; Pain 0/10; tl1 07:29 BP 95 / 44; Pulse 94; Resp 18; Pulse Ox 99% on 2 lpm NC; Pain 0/10; tl1 08:00 BP 105 / 49; Pulse 94; Resp 20; Pulse Ox 99% on 2 lpm NC; ph 08:30 BP 89 / 43; Pulse 88; Resp 16; Pulse Ox 98% on 2 lpm NC; ph 09:08 BP 86 / 50; Pulse 81; Resp 16; Pulse Ox 99% on 4 lpm NC; ph 09:30 BP 87 / 52; Pulse 80; Resp 18; Pulse Ox 99% on 2 lpm NC; ph 10:00 BP 92 / 52; Pulse 81; Resp 18; Pulse Ox 99% on 2 lpm NC; ph 10:38 BP 103 / 56; Pulse 78; Resp 16; Temp 98.2; Pulse Ox 99% on 2 lpm NC; Pain 0/10; ph 11:20 BP 113 / 53; Pulse 71; Resp 16; Temp 98.2; Pulse Ox 100% on 2 lpm NC; ph 04:13 Body Mass Index 34.50 (91.17 kg, 162.56 cm) ao MDM: 04:14 Patient medically screened. gs 06:35 Differential diagnosis: viral Infection, bacterial infection, pneumonia UTI, gs cellulitis. Data reviewed: vital signs, nurses notes. Response to treatment: the patient's symptoms have mildly improved after treatment, and as a result, I will admit patient. 01/07 04:15 Order name: Basic Metabolic Panel; Complete Time: 05:16 01/07 04:15 Order name: Blood Culture Adult (2) gs 01/07 04:15 Order name: BNP; Complete Time: 05:16 01/07 04:15 Order name: CBC with Diff; Complete Time: 06:20 01/07 04:15 Order name: Lactate; Complete Time: 05:25 01/07 04:15 Order name: LFT's; Complete Time: 05:16 01/07 04:15 Order name: Lipase; Complete Time: 05:16 01/07 04:15 Order name: Procalcitonin; Complete Time: 06:20 01/07 04:15 Order name: Protime (+inr); Complete Time: 05:16 01/07 04:15 Order name: Troponin (emerg Dept Use Only); Complete Time: 05:16 01/07 04:15 Order name: Chest Single View XRAY 01/07 04:16 Order name: Chest Single View EDMS 01/07 04:39 Order name: Urine Dipstick--Ancillary (enter results); Complete Time: 05:16 em1 01/07 05:32 Order name: CBC Smear Scan; Complete Time: 06:20 EDMS 01/07 05:46 Order name: Wound Culture tl1 01/07 06:21 Order name: Urine Microscopic Only gs 01/07 07:02 Order name: Urine Dipstick--Ancillary (enter results) em1 01/07 07:09 Order name: Lactate ao 01/07 07:51 Order name: Lactate Sepsis 2 HR Follow-up EDMS 01/07 07:57 Order name: Chest Single View XRAY aa5 01/07 04:15 Order name: Accucheck; Complete Time: 05:04 01/07 04:15 Order name: Cardiac monitoring; Complete Time: 05:04 01/07 04:15 Order name: EKG - Nurse/Tech; Complete Time: 05:04 01/07 04:15 Order name: IV Saline Lock - Large Bore; Complete Time: 05:04 01/07 04:15 Order name: Labs collected and sent; Complete Time: 05:04 01/07 04:15 Order name: O2 Per Protocol; Complete Time: 05:04 gs 01/07 04:15 Order name: O2 Sat Monitoring; Complete Time: 05:04 01/07 04:15 Order name: Urine Dipstick-Ancillary (obtain specimen); Complete Time: 04:38 01/07 06:34 Order name: EKG Electrocardiogram; Complete Time: 06:37 EDMS 01/07 06:57 Order name: Taylor; Complete Time: 06:57 tl1 01/07 10:17 Order name: RAD EDMS EC:24 Rate is 114 beats/min. Rhythm is regular. QRS interval is normal. QT interval is gs normal. T waves are Flattened. Clinical impression: Abnormal EKG without significant change and Sinus tachycardia. Interpreted by me. Administered Medications: 04:20 Drug: NS 0.9% 1000 ml Route: IV; Rate: 1 bolus; Site: left antecubital; ao 07:00 Follow up: Response: No adverse reaction; IV Status: Completed infusion ph 04:39 Drug: Motrin 600 mg Route: PO; tl1 06:38 Follow up: Response: No adverse reaction; Marked relief of symptoms; Temperature is tl1 decreased 05:33 Drug: NS 0.9% 1000 ml Route: IV; Rate: 1 bolus; Site: left antecubital; tl1 06:37 Follow up: IV Status: Completed infusion tl1 05:46 Drug: Zosyn 3.375 grams Route: IVPB; Infused Over: 60 mins; Site: left antecubital; tl1 06:42 Follow up: IV Status: Completed infusion tl1 06:37 Drug: vancoMYCIN 1 grams Route: IVPB; Infused Over: 2 hrs; Site: left antecubital; tl1 10:16 Follow up: Response: No adverse reaction; IV Status: Completed infusion ph 08:28 Drug: Levophed (4 mg/250 mL D5W 4 mcg/min {Note: initiated at 3 mcg/min.} Route: IV; ph Rate: calculated rate; Site: left antecubital; 09:07 Follow up: Rate change 5 mcg/min; IV SiteChange: right subclavian; IV SiteChange ph Reason: Infiltration; IV not infiltrated, medication moved from peripheral line to central line 10:14 Follow up: Response: No adverse reaction; Rate change 9 mcg/min ph 10:15 Follow up: Response: No adverse reaction; IV Status: Infusion continued upon admission ph Point of Care Testing: Blood Glucose: 05:07 Blood Glucose: 59 mg/dL; ao 05:31 Blood Glucose: 76 mg/dL; ao Ranges: Critical Glucose Levels:Adult <50 mg/dl or >400 mg/dl <40 mg/dl or >180 mg/dl Disposition: 01/07/18 06:20 Hospitalization ordered by Marcus Garcia for Inpatient Admission. Preliminary diagnosis are Fever, unspecified, Sepsis, unspecified organism, Cellulitis of left lower limb, Cellulitis of right lower limb. - Bed requested for Intensive Care Unit. - Status is Inpatient Admission. ph - Condition is Stable. - Problem is new. - Symptoms have improved. UTI on Admission? Yes Critical care time excluding procedures: 06:35 Critical care time: Bedside Care: 10 minutes, Consultation: 10 minutes, Family gs Intervention: 10 minutes. Total time: 30 minutes Signatures: Dispatcher [employer] EDGA Deyanira Patel RN RN tl1 Cathy Elliott RN RN Stewart Rojas RN RN ao Starr, Gregory, MD MD Yolanda Lopez Corrections: (The following items were deleted from the chart) 04:17 04:16 Basic Metabolic Panel ordered. EDGA EDMS 04:17 04:16 BNP B-Type Natriuretic Peptide ordered. EDGA EDGA 04:17 04:16 CBC with Automated Diff ordered. EDGA EDMS 04:17 04:16 Lactate ordered. EDGA EDMS 04:17 04:16 Liver (Hepatic) Function ordered. EDGA EDMS 04:17 04:16 Lipase ordered. EDGA EDMS 04:17 04:16 Procalcitonin ordered. EDGA EDMS 04:17 04:16 Protime (+INR) ordered. EDGA EDMS 04:17 04:16 Troponin (Emerg Dept Use Only) ordered. [facility] EDMS 06:22 06:20 Hospitalization Ordered by Marcus Garcia MD for Inpatient Admission. Preliminary diagnosis is Fever, unspecified; Sepsis, unspecified organism. Bed requested for Telemetry/MedSurg (Inpatient). Status is Inpatient Admission. Condition is Stable. Problem is new. Symptoms have improved. UTI on Admission? No. 06:27 04:16 Blood Culture ordered. [facility] EDGA 06:37 06:22 01/07/2018 06:20 Hospitalization Ordered by Marcus Garcia MD for Inpatient gs Admission. Preliminary diagnosis is Fever, unspecified; Sepsis, unspecified organism. Bed requested for Telemetry/MedSurg (Inpatient). Status is Inpatient Admission. Condition is Stable. Problem is new. Symptoms have improved. UTI on Admission? Yes. 07:42 06:37 01/07/2018 06:20 Hospitalization Ordered by Marcus Garcia MD for Inpatient eb Admission. Preliminary diagnosis is Fever, unspecified; Sepsis, unspecified organism; Cellulitis of left lower limb; Cellulitis of right lower limb. Bed requested for Telemetry/MedSurg (Inpatient). Status is Inpatient Admission. Condition is Stable. Problem is new. Symptoms have improved. UTI on Admission? Yes. 07:42 07:42 01/07/2018 06:20 Hospitalization Ordered by Marcus Garcia MD for Inpatient eb Admission. Preliminary diagnosis is Fever, unspecified; Sepsis, unspecified organism; Cellulitis of left lower limb; Cellulitis of right lower limb. Bed requested for Telemetry/MedSurg (Inpatient). Status is Inpatient Admission. Condition is Stable. Problem is new. Symptoms have improved. UTI on Admission? Yes. eb 09:33 07:42 01/07/2018 06:20 Hospitalization Ordered by Marcus Garcia MD for Inpatient eb Admission. Preliminary diagnosis is Fever, unspecified; Sepsis, unspecified organism; Cellulitis of left lower limb; Cellulitis of right lower limb. Bed requested for Telemetry/MedSurg (Inpatient). Status is Inpatient Admission. Condition is Stable. Problem is new. Symptoms have improved. UTI on Admission? Yes. eb 12:01 09:33 01/07/2018 06:20 Hospitalization Ordered by Marcus Garcia MD for Inpatient ph Admission. Preliminary diagnosis is Fever, unspecified; Sepsis, unspecified organism; Cellulitis of left lower limb; Cellulitis of right lower limb. Bed requested for Intensive Care Unit. Status is Inpatient Admission. Condition is Stable. Problem is new. Symptoms have improved. UTI on Admission? Yes. eb
--- NOTE | 2018-01-07 06:20 | ER ---
Nurse's Notes [facility] Name: Emelia Payan Age: 77 yrs Sex: Female : 1940 Arrival Date: 01/07/2018 Time: 04:00 Bed 3 Private MD: Diagnosis: Fever, unspecified;Sepsis, unspecified organism;Cellulitis of left lower limb;Cellulitis of right lower limb Presentation: 01/07 04:11 Presenting complaint: Patient states: "I started last night having chills and fever. I ao also started having difficulty breathing few hours ago.". Transition of care: patient was not received from another setting of care. Onset of symptoms was January 06, 2018 at 20:00. Initial Sepsis Screen: Does the patient meet any 2 criteria? HR > 90 bpm. No. Patient's initial sepsis screen is negative. Does the patient have a suspected source of infection? No. Patient's initial sepsis screen is negative. Care prior to arrival: None. 04:11 Method Of Arrival: Ambulatory ao 04:11 Acuity: EDIS 3 ao 08:00 Acuity: EDIS 2 ph Triage Assessment: 05:17 Respiratory: Onset: The symptoms/episode began/occurred yesterday, the patient has ao moderate shortness of breath. Respiratory: Airway is patent Respiratory effort is even, unlabored, Respiratory pattern is regular, symmetrical. Respiratory: Historical: - Allergies: 04:41 Cipro; ao 04:41 Xarelto; ao - Home Meds: 04:41 amlodipine 5 mg tab 1 tab once daily [Active]; atorvastatin 10 mg Oral tab 1 tab once ao daily [Active]; carvedilol 25 mg Oral tab three times a day [Active]; Dexilant 60 mg Oral CpDB 1 cap once daily [Active]; Creon 12,000-38,000 -60,000 unit Oral cpDR 3 times per day [Active]; fenofibrate 48 mg Oral once daily [Active]; gabapentin 600 mg Oral tab 1 tab 3 times per day [Active]; glipizide 2.5 mg Oral tr24 once daily [Active]; hydrocortisone 10 mg Oral tab 4 tabs 2 times per day [Active]; levothyroxine 125 mcg tab 1 tab once daily [Active]; liothyronine 5 mcg Oral tab 1 tab once daily [Active]; losartan 100 mg Oral tab 1 tab once daily [Active]; magnesium oxide 500 mg Oral cap twice a day [Active]; Omnitrope subcutaneous once daily [Active]; potassium chloride 20 mEq Oral TbER once daily [Active]; Tradjenta 5 mg Oral tab 1 tab once daily [Active]; Vitamin D Oral 40896 unit every 15 days [Active]; warfarin 3 mg Oral tab 1 tab once daily [Active]; - PMHx: 04:41 adrenal insuficiency; CHF; Diabetes - IDDM; DVT; Hyperlipidemia; Hypertension; ao Hypothyroidism; - PSHx: 04:41 Unable to obtain; ao - Immunization history:: Adult Immunizations unknown. - Social history:: Smoking status: Patient/guardian denies using tobacco, Patient/guardian denies using alcohol, street drugs. Screenin:16 Abuse screen: Denies threats or abuse. Denies injuries from another. Nutritional ao screening: No deficits noted. Tuberculosis screening: No symptoms or risk factors identified. Fall Risk Fall in past 12 months (25 points). Assessment: 04:45 General: Appears uncomfortable, Behavior is calm, cooperative, appropriate for age. tl1 Pain: Denies pain. Neuro: Level of Consciousness is awake, alert, obeys commands, Oriented to person, place, time, situation, Conservation Biology Professor are equal bilaterally. Cardiovascular: Denies chest pain, shortness of breath. Cardiovascular: Rhythm is sinus tachycardia. Respiratory: Reports shortness of breath at rest Airway is patent Trachea midline Respiratory effort is even, labored, Respiratory pattern is tachypnea Breath sounds are clear bilaterally. Denies cough. GI: Abdomen is obese, Bowel sounds present X 4 quads. Abd is soft and non tender X 4 quads. : No signs and/or symptoms were reported regarding the genitourinary system. EENT: No signs and/or symptoms were reported regarding the EENT system. Derm: Skin is fragile, has lesions on to bilateral lower legs. Seeing Dr Rushing at wound healing. Musculoskeletal: Reports weakness in right leg and left leg. 05:40 Reassessment: Patient glucose was 59 at 0507. Provided with orange juice and crackers. ao Recheck glucose to be 76 at 0531. 05:55 Reassessment: Patient appears in no apparent distress at this time. Patient and/or ao family updated on plan of care and expected duration. Pain level reassessed. Patient is alert, oriented x 3, equal unlabored respirations, skin warm/dry/pink. Patient reported and allergic reactions to an antibiotic. Patient was not sure which one was. No history of a particular antibiotic causing the allergic reactions but notes stated that she did had a problem with ether Zosyn or Vancomycin. 07:30 Reassessment: Patient appears in no apparent distress at this time. Patient and/or ph family updated on plan of care and expected duration. Pain level reassessed. Patient is alert, oriented x 3, equal unlabored respirations, skin warm/dry/pink. Pt BP remains low however pt asymptomatic, A\\T\\O x 4, denies dizziness, states, " I feel much better than when I got here." ERP aware of BP, pt moved to bed 3 to prepare for central line placement. 08:19 Reassessment: Patient appears in no apparent distress at this time. Patient and/or ph family updated on plan of care and expected duration. Pain level reassessed. Patient is alert, oriented x 3, equal unlabored respirations, skin warm/dry/pink. Pt resting quietly at this time, denies pain, dizziness or SOB, awaiting CXR to check CL placement. 09:09 Reassessment: Patient appears in no apparent distress at this time. Patient and/or ph family updated on plan of care and expected duration. Pain level reassessed. Pt resting quietly w/ eyes closed, respirations even and unlabored, awakens easily, denies pain at this time, awaiting room assignment. 10:00 Reassessment: Patient appears in no apparent distress at this time. Patient and/or ph family updated on plan of care and expected duration. Pain level reassessed. Patient is alert, oriented x 3, equal unlabored respirations, skin warm/dry/pink. Patient denies pain at this time. 11:20 Reassessment: Patient appears in no apparent distress at this time. No changes from ph previously documented assessment. Patient and/or family updated on plan of care and expected duration. Pain level reassessed. Report called to ICU, pt waiting to be taken to room. Vital Signs: 04:13 BP 124 / 87; Pulse 107; Resp 20; Temp 99.0(O); Pulse Ox 98% on R/A; Weight 91.17 kg ao (R); Height 5 ft. 4 in. (162.56 cm) (R); Pain 0/10; 05:06 BP 138 / 57; Pulse 106; Resp 22; Pulse Ox 98% on 2 lpm NC; Pain 0/10; tl1 05:55 BP 97 / 44; Pulse 96; Resp 18; Temp 99.6(T); Pulse Ox 99% on R/A; ao 06:06 BP 103 / 44; Pulse 97; Resp 14; Pulse Ox 100% on 2 lpm NC; Pain 0/10; tl1 06:58 BP 84 / 41; Pulse 100; Resp 15; Pulse Ox 99% on 2 lpm NC; Pain 0/10; tl1 07:29 BP 95 / 44; Pulse 94; Resp 18; Pulse Ox 99% on 2 lpm NC; Pain 0/10; tl1 08:00 BP 105 / 49; Pulse 94; Resp 20; Pulse Ox 99% on 2 lpm NC; ph 08:30 BP 89 / 43; Pulse 88; Resp 16; Pulse Ox 98% on 2 lpm NC; ph 09:08 BP 86 / 50; Pulse 81; Resp 16; Pulse Ox 99% on 4 lpm NC; ph 09:30 BP 87 / 52; Pulse 80; Resp 18; Pulse Ox 99% on 2 lpm NC; ph 10:00 BP 92 / 52; Pulse 81; Resp 18; Pulse Ox 99% on 2 lpm NC; ph 10:38 BP 103 / 56; Pulse 78; Resp 16; Temp 98.2; Pulse Ox 99% on 2 lpm NC; Pain 0/10; ph 11:20 BP 113 / 53; Pulse 71; Resp 16; Temp 98.2; Pulse Ox 100% on 2 lpm NC; ph 04:13 Body Mass Index 34.50 (91.17 kg, 162.56 cm) ao ED Course: 04:00 Patient arrived in ED. do 04:03 Dhaval Hduson MD is Attending Physician. gs 04:09 Stewart Rojas, ODILON is Primary Nurse. ao 04:13 Triage completed. ao 04:30 Inserted saline lock: 20 gauge in left antecubital area, using aseptic technique. Blood tl1 collected. 04:42 Arm band placed on right wrist. Patient placed in an exam room, Patient notified of ao wait time. 04:46 X-ray completed. Portable x-ray completed in exam room. jr1 04:47 Chest Single View In Process Unspecified. EDMS 05:17 Patient has correct armband on for positive identification. cash application representative on. Pulse ao ox on. NIBP on. 05:47 No provider procedures requiring assistance completed. tl1 05:47 Wound care: located on right leg was dressed with Kerlix. tl1 06:19 Marcus Garcia MD is Hospitalizing Provider. gs 06:57 Taylor cath inserted, using sterile technique, [address], balloon inflated, to tl1 gravity drainage, urine specimen collected. 07:09 Report given to ODILON Morgan. ao 07:20 Cathy Elliott RN is Primary Nurse. ph 07:45 Assisted provider with central line placement. Set up central line tray. Triple lumen ph line placed in right subclavian. Line placed by Dhaval Hudson MD Placement verified by CXR, blood return, Dressed with Tegaderm, Patient tolerated well. Before procedure, did Practitioner(s) obtain informed consent? Yes. Patient \\T\\ family education about procedure, CLABSI prevention and S/S of infection? Yes. Time-out/Briefing performed prior to start of procedure? Yes. Was handwashing/sanitizing done immediately prior to procedure? Yes. Was patient positioned to in a way to prevent air embolism? Yes. Was procedure site sterilized? Yes, with chlorhexidine. Was the site allowed to dry? Yes. Was local anesthetic and/or sedation utilized? Yes. During the procedure, did the Practitioner(s) maintain a sterile field? Yes. Were unused ports clamped during insertion? Yes. Was a 2nd qualified MD obtained after 3 unsuccessful insertion attempts? No. Was blood aspirated from each lumen? Yes. After the procedure, did the Practitioner(s) clean the site and apply a sterile dressing? Yes. Patient admitted, IV remains in place. 08:38 X-ray completed. Portable x-ray completed in exam room. Patient tolerated procedure jr1 well. Administered Medications: 04:20 Drug: NS 0.9% 1000 ml Route: IV; Rate: 1 bolus; Site: left antecubital; ao 07:00 Follow up: Response: No adverse reaction; IV Status: Completed infusion ph 04:39 Drug: Motrin 600 mg Route: PO; tl1 06:38 Follow up: Response: No adverse reaction; Marked relief of symptoms; Temperature is tl1 decreased 05:33 Drug: NS 0.9% 1000 ml Route: IV; Rate: 1 bolus; Site: left antecubital; tl1 06:37 Follow up: IV Status: Completed infusion tl1 05:46 Drug: Zosyn 3.375 grams Route: IVPB; Infused Over: 60 mins; Site: left antecubital; tl1 06:42 Follow up: IV Status: Completed infusion tl1 06:37 Drug: vancoMYCIN 1 grams Route: IVPB; Infused Over: 2 hrs; Site: left antecubital; tl1 10:16 Follow up: Response: No adverse reaction; IV Status: Completed infusion ph 08:28 Drug: Levophed (4 mg/250 mL D5W 4 mcg/min {Note: initiated at 3 mcg/min.} Route: IV; ph Rate: calculated rate; Site: left antecubital; 09:07 Follow up: Rate change 5 mcg/min; IV SiteChange: right subclavian; IV SiteChange ph Reason: Infiltration; IV not infiltrated, medication moved from peripheral line to central line 10:14 Follow up: Response: No adverse reaction; Rate change 9 mcg/min ph 10:15 Follow up: Response: No adverse reaction; IV Status: Infusion continued upon admission ph Point of Care Testing: Blood Glucose: 05:07 Blood Glucose: 59 mg/dL; ao 05:31 Blood Glucose: 76 mg/dL; ao Ranges: Intake: Outcome: 06:20 Decision to Hospitalize by Provider. gs 12:00 Admitted to ICU accompanied by nurse, accompanied by tech, via stretcher, room 3, with ph oxygen, on monitor, with chart, Report called to Leyla DONALD 12:00 Condition: stable 12:00 Instructed on the need for admit. 12:01 Patient left the ED. ph Signatures: Dispatcher [employer] EDMS Annel Wolf 1 Deyanira Patel RN RN tl1 Cathy Elliott RN RN ph Stewart Rojas RN RN ao Ogletree, Danielle do Starr, Gregory, MD MD Corrections: (The following items were deleted from the chart) 11:07 11:05 Reassessment: Patient appears in no apparent distress at this time. Patient ph and/or family updated on plan of care and expected duration. Pain level reassessed. Patient is alert, oriented x 3, equal unlabored respirations, skin warm/dry/pink. Pt discharged home with SO, will attend dialysis tx after discharge ph 12:09 15: Condition: improved ph ph 12:09 15: Discharged to home via wheelchair, with significant other, ph ph 12: 11: Discharge instructions given to patient, Instructed on discharge instructions, ph follow up and referral plans. medication usage, Demonstrated understanding of instructions, follow-up care, medications, Prescriptions given X 1, ph
--- NOTE | 2018-01-07 06:26 | P.HP ---
Certification for Inpatient Patient admitted to: Inpatient With expected LOS: >2 Midnights Practitioner: I am a practitioner with admitting privileges, knowledge of patient current condition, hospital course, and medical plan of care. Services: Services provided to patient in accordance with Admission requirements found in Title 42 Section 412.3 of the Code of Federal Regulations Patient History Date of Service: 01/07/18 Reason for admission: sepsis History of Present Illness: Ms Payan is a 77 years old woman with history of multiple medical problems, who 3 weeks ago had a debridement of a right leg wound. The procedure was done by Dr Rushing. She was receiving wound care, and last time was 5 days ago. Since 3 days ago, she has had fever and chills. She denied cough or burning urination. She denied nausea, vomiting or diarrhea. In ER The patient temp was 99.0, O2 Sat 98% on RA, BP 90's/60's. She had her both legs wrapped. Right leg were the wound is was unwrapped first and noticed yellowish secretion from the wound. Left leg was wrapped due to cellulitis in the previous admission, is currently resolved. Allergies ciprofloxacin [From Cipro] Allergy (Verified 02/11/17 06:42) Unknown rivaroxaban [From Xarelto] Allergy (Verified 02/11/17 06:42) Unknown Home Medications: Amlodipine [Norvasc*] 5 mg PO DAILY 01/24/16 Atorvastatin Calcium [Lipitor*] 10 mg PO BEDTIME 01/24/16 Calcium Carbonate/Vitamin D3 [Calcium 500-Vit D3 400 Tablet] 1 tab PO DAILY Carvedilol [Coreg*] 25 mg PO TID 01/24/16 Fenofibrate 48 mg PO DAILY 01/24/16 Gabapentin [Neurontin] 600 mg PO BID 01/24/16 Hydrocortisone [Cortef*] 20 mg PO BID 01/24/16 Linagliptin [Tradjenta] 5 mg PO DAILY 01/24/16 Losartan Potassium [Cozaar] 100 mg PO DAILY 01/24/16 Potassium Oral Tab [Klor-Con 10 mEq Tab*] 20 meq PO DAILY 01/24/16 Somatropin [Omnitrope] 0.3 mg SQ DAILY 01/24/16 Warfarin Sodium [Coumadin] 2.5 mg PO DAILY 02/06/16 Glipizide [Glipizide Xl] 1 tab PO DAILY 12/29/16 Lipase/Protease/Amylase [Creon Dr 12,000 Units Capsule] 1 tab PO TID 12/29/16 Levothyroxine [Synthroid*] 1 tab PO DAILY 02/10/17 Dexlansoprazole [Dexilant] 60 mg PO DAILY 12/05/17 Liothyronine Sodium [Cytomel] 5 mcg PO DAILY 12/05/17 Furosemide [Lasix] 20 mg PO DAILY #30 tab 12/12/17 Smz./Tmp. [Bactrim Ds 800 MG/160 MG*] 1 tab PO BID #28 tab 12/12/17 - Past Medical/Surgical History Diabetic: Yes -: Diabetes mellitus type 2 -: History CVA 2012 -: HTN -: Anxiety -: History of pituitary gland removal -: GERD with history of GI bleed -: Hypothyroidism -: Chronic anti coagulation -: History atrial fibrillation -: Chronic steroids -: Adrenal insufficiency -: Hyperlipidemia -: hysterectomy -: bradley carpal tunnel sx -: L lumpectomy -: brain tumor removed- benign -: pituitary gland removal -: appendectomy Psychosocial/ Personal History: The patient is . She has 5 children. She does not work. - Family History Mother -: Heart disease, Hypertension Notes: of heart attack Father -: Heart disease Notes: of heart attack - Social History Alcohol use: No CD- Drugs: No Caffeine use: Yes Review of Systems 10-point ROS is otherwise unremarkable Physical Examination - Physical Exam General: Alert, In no apparent distress HEENT: Atraumatic, PERRLA, Mucous membr. moist/pink, EOMI, Sclerae nonicteric Neck: Supple, 2+ carotid pulse no bruit, No LAD, Without JVD or thyroid abnormality Respiratory: Clear to auscultation bilaterally, Normal air movement Cardiovascular: Regular rate/rhythm, Normal S1 S2 Gastrointestinal: Normal bowel sounds, No tenderness Musculoskeletal: No tenderness Integumentary: Skin lesion, Diabetic ulcer (right leg) Neurological: Normal gait, Normal speech, Normal strength at 5/5 x4 extr, Normal tone, Normal affect Lymphatics: No axilla or inguinal lymphadenopathy - Studies Laboratory Data (last 24 hrs) 01/07/18 04:35: PT 17.8 H, INR 1.50 01/07/18 04:15: WBC 4.1 L, Hgb 13.1, Hct 40.0, Plt Count 66 L 01/07/18 04:15: B-Natriuretic Peptide 232 H 01/07/18 04:15: Sodium 146 H, Potassium 3.9, BUN 27 H, Creatinine 1.01 H, Glucose 82, Total Bilirubin 0.8, AST 18, ALT 12, Alkaline Phosphatase 44, Lipase 28 Assessment and Plan - Problems (Diagnosis) (1) Sepsis Current Visit: Yes Status: Acute Qualifiers: Sepsis type: sepsis due to unspecified organism Qualified Code(s): A41.9 - Sepsis, unspecified organism (2) diabetic ulcer Current Visit: Yes Status: Acute (3) Diabetes mellitus type II, non insulin dependent Onset Date: 01/20/16 Current Visit: No Status: Acute - Plan The patient will be admitted to the hospital due to sepsis. The most probable source is her right leg diabetic ulcer. Will order wound culture, blood cultures , MRI of the leg to R/O ostemyelitis, consult Dr Rushing. Start empiric treatment with IV Vancomycin and Zosyn. - Advance Directives Does patient have a Living Will: No Does patient have a Durable POA for Healthcare: No - Code Status/Comfort Care Code Status Assessed: Yes Code Status: Full Code
[2018-01-07 07:10] LABS: Urine Blood 2+ (NEG); Urine Glucose NEGATIVE (NEG); Urine Protein 1+ (NEG); Urine Specific Gravity 1.015 (1.005-1.030); Urine pH 5.5 (5.0-7.0)
--- NOTE | 2018-01-07 07:38 | EKG ---
Test Date: 2018-01-07 Test Time: 04:49:19 Hris Administrator: MARIALUISA MEASUREMENT RESULTS: Intervals: Rate: 114 WY: 110 QRSD: 66 QT: 284 QTc: 391 [place]: P: 27 WY: 110 QRS: -11 T: 43 INTERPRETIVE STATEMENTS: Sinus tachycardia with short [place] interval Nonspecific ST abnormality Abnormal ECG Compared to ECG 12/07/2017 13:02:28 ST (T wave) deviation now present Sinus rhythm no longer present Electronically Signed On 01-07-18 07:37:33 CDT by Geovany Metz
[2018-01-07 07:44] LABS: Urine Bacteria LOADED /HPF (<20); Urine Culture Reflex Order REFLEXED
--- NOTE | 2018-01-07 09:52 | RAD REPORT ---
EXAM DESCRIPTION: Brandon Single View01/07/2018 4:50 am CLINICAL HISTORY: Chest pain COMPARISON: December 2017 FINDINGS: The lungs appear clear of acute infiltrate. The heart is normal size. Calcified granuloma is present within the right lung IMPRESSION: No acute abnormalities displayed
--- NOTE | 2018-01-07 10:17 | RAD REPORT ---
EXAM DESCRIPTION: Brandon Single View01/07/2018 8:40 am CLINICAL HISTORY: Chest pain COMPARISON: January 07 FINDINGS: The lungs appear clear of acute infiltrate. The heart is normal size. A central venous line has its tip in the superior vena cava. A pneumothorax is not seen IMPRESSION: No acute abnormalities displayed
[2018-01-07] MEDS: NA CHLORIDE 0.9% 1,000 ML IV SCH ×3 (11:30→23:31)
[2018-01-07] MEDS ORDERED: ONDANSETRON 4 MG/2 ML VIAL IV PRN (11:30)
[2018-01-07] MEDS ORDERED: VANCOMYCIN/NS 1 gm 1 GM/250 ML BAG IV SCH (12:00)
[2018-01-07] MEDS ORDERED: GLUCAGON 1 MG/VIAL IM PRN (12:29)
[2018-01-07] MEDS ORDERED: D50W 25 GM/50 ML SYRINGE IV PRN (12:29)
[2018-01-07] MEDS ORDERED: INSULIN -REGULAR HUMAN 50 UNIT/0.5 ML ML SQ SCH (12:30)
[2018-01-07] MEDS: PIPER/TAZO/NS 3.375gm 3.375 GM/100 ML BAG IVPB SCH ×3 (13:34→23:24)
[2018-01-07] MEDS: NOREPINEPHRINE 4 MG in D5W 250 ML IV PRN (14:11)
[2018-01-07] MEDS ORDERED: VANCOMYCIN 1.25 GM in NA CHLORIDE 0.9% 250 ML IVPB ONE (16:00)
[2018-01-07] MEDS: INSULIN -REGULAR HUMAN 50 UNIT/0.5 ML ML SQ SCH ×2 (16:30→20:55)
[2018-01-08] MEDS: ACETAMINOPHEN 500 MG TAB PO PRN ×2 (01:02→12:15)
[2018-01-08] MEDS ORDERED: NOREPINEPHRINE 4mg/D5W 250mL 0 MG/0 ML BAG IV ONE (01:39)
[2018-01-08] MEDS ORDERED: D5W 0 ML IV ONE (01:39)
[2018-01-08] MEDS: TRAMADOL HCL 50 MG TAB PO PRN ×2 (02:10→14:38)
[2018-01-08] MEDS ORDERED: NOREPINEPHRINE 4 MG/4 ML VIAL ONE (02:19)
[2018-01-08] MEDS ORDERED: D5W 250 ML IV ONE (02:23)
[2018-01-08] MEDS: NOREPINEPHRINE 4 MG in D5W 250 ML IV PRN ×2 (02:27→09:18)
[2018-01-08] MEDS ORDERED: VANCOMYCIN/NS 1 gm 1 GM/250 ML BAG IV SCH (05:00)
[2018-01-08] MEDS: PIPER/TAZO/NS 3.375gm 3.375 GM/100 ML BAG IVPB SCH ×4 (05:24→23:52)
[2018-01-08 06:10] LABS: Absolute Lymphocytes (CBC) 0.6 K/uL (0.7-4.9); Absolute Monocytes 0.3 K/uL (0.1-1.3); Absolute Neutrophil 10.2 K/uL (1.8-8.0); Basophils % 0.1 % (0-1.3); Eosinophils % 1.2 % (0-4.4); Hematocrit 42.4 % (36.0-45.0); Lymphocytes % 5.7 % (15.3-44.8); MCH 32.1 pg (27.0-35.0); MCV 99.5 fL (80-100); MPV 11.3 fL (7.6-11.3); Monocytes % 2.6 % (3.3-12.3); RBC Red Blood Cell Count 4.26 M/uL (3.86-4.86)
[2018-01-08 06:15] LABS: Potassium 3.4 mEq/L (3.6-5.0)
[2018-01-08 06:40] LABS: Urine White Blood Cell Casts DIFF
[2018-01-08 06:41] LABS: Blood Morphology Comment NOT SEEN (NOT SEEN); Platelet Estimate DECR
[2018-01-08] MEDS: INSULIN -REGULAR HUMAN 50 UNIT/0.5 ML ML SQ SCH ×4 (07:30→20:28)
[2018-01-08] MEDS: NA CHLORIDE 0.9% 1,000 ML IV SCH ×2 (08:17→13:00)
[2018-01-08] MEDS: KCL 20 MEQ/100 mL IVPB 20 MEQ/100 ML BAG IV SCH ×2 (08:17→09:24)
[2018-01-08] MEDS: SOMATROPIN SQ SCH (08:18)
--- NOTE | 2018-01-08 10:16 | EKG ---
Test Date: 2018-01-07 Test Time: 06:14:35 [employer]oe Rep[employer] Cobbler: [employer] MEASUREMENT RESULTS: Intervals: Rate: 99 TX: 124 QRSD: 80 QT: 318 QTc: 408 [place]: P: 5 TX: 124 QRS: 10 T: -78 INTERPRETIVE STATEMENTS: Sinus rhythm with premature atrial complexes Nonspecific T wave abnormality Abnormal ECG Compared to ECG 01/07/2018 04:49:19 Atrial premature complex(es) now present T-wave abnormality now present Sinus tachycardia no longer present Electronically Signed On 01-08-18 10:16:09 CDT by Geovany Metz
--- NOTE | 2018-01-08 12:25 | P.PN ---
Subjective Date of Service: 01/08/18 Chief Complaint: sepsis Subjective: Other (complaining of shortness of breath.Was said to have become more shortness of breath after getting on the comode yesterday with minimal exertion.) Review of Systems 10-point ROS is otherwise unremarkable Physical Examination - Vital Signs Temperature: 97.1 F Blood Pressure: 105/61 Pulse: 91 Respirations: 14 Pulse Ox (%): 98 - Physical Exam General: Alert, In no apparent distress, Oriented x3 HEENT: Atraumatic, Normocephalic, PERRLA Neck: Supple, JVD not distended, No Thyromegaly, No LAD Respiratory: Clear to auscultation bilaterally, Normal air movement Cardiovascular: No edema, Normal pulses, Regular rate/rhythm, Normal S1 S2, No gallops, No rubs, No murmurs Gastrointestinal: Normal bowel sounds, Soft and benign, Non-distended, No ascites, No tenderness, No masses, No rebound, No guarding Integumentary: Other (ulcer on right mid leg, with granulation tissue. no discharge, erythema or warmth appreciated) - Studies Microbiology Data (last 24 hrs): 01/07/18 05:45 Wound - Right Calf Gram Stain - Final Assessment And Plan - Current Problems (Diagnosis) (1) Bacteremia due to Gram-negative bacteria Current Visit: Yes Status: Acute Plan: per prelim cultures, suspect source to be urinary continue zosyn follow final culture results on levophed due to hypotension (2) Diabetes mellitus type II, non insulin dependent Onset Date: 01/20/16 Current Visit: No Status: Acute Plan: SSI,accucheck hold oral hypoglycemics at this time (3) UTI (urinary tract infection) Onset Date: 01/20/16 Current Visit: No Status: Acute Plan: urine cultures positive for >100k GNR final culture result and sensitivity pending at this time currently on zosyn, will continue (4) Atrial fibrillation Onset Date: 12/30/16 Current Visit: No Status: Chronic Plan: currently in SR rate controlled hold cervidilol due to hypotension continue AC monitor INR daily Qualifiers: Atrial fibrillation type: chronic Qualified Code(s): I48.2 - Chronic atrial fibrillation (5) Panhypopituitarism Onset Date: 01/20/16 Current Visit: No Status: Acute Plan: likely contributing to hypotension at this time will hold all BP medications start stress dose steroids IV hydrocortisone 100mg IV x 1 then continue 50mg [id number] continue thyroid medications (6) Hyperlipidemia Onset Date: 01/20/16 Current Visit: No Status: Chronic Plan: resume home medications Qualifiers: Hyperlipidemia type: unspecified Qualified Code(s): E78.5 - Hyperlipidemia , unspecified (7) Shortness of breath Current Visit: Yes Status: Acute Plan: obtain stat chest xray check BNP TTE oxygen as needed Physician Review: Patient Assessed, Agree with Above Assessment and Plan Critical Care: Yes Time Spent Managing PTS Care (In Minutes): 40
[2018-01-08] MEDS ORDERED: HOME MED 1 EA UNK (Cholecalciferol (Vitamin D3) [Vitamin D3] 1 TAB) PO SCH (12:30)
--- NOTE | 2018-01-08 13:04 | RAD REPORT ---
EXAM DESCRIPTION: RAD - Chest Single View - 01/08/2018 12:57 pm CLINICAL HISTORY: Shortness of breath COMPARISON: 01/07/2018, 12/11/2017 FINDINGS: Portable technique limits examination quality. Small calcified granuloma seen in the right upper lobe. The lungs are grossly clear of acute infiltra te. The heart is mildly enlarged in size. No displaced fractures.Right-sided venous catheter tip in t he SVC. IMPRESSION: No acute intrathoracic process suspected.
[2018-01-08] MEDS ORDERED: HOME MED 1 EA UNK (Gabapentin [Gabapentin] 1 TAB) PO SCH (14:00)
[2018-01-08] MEDS ORDERED: WATER FOR INJ,STERILE 10 ML ONE (14:28)
[2018-01-08] MEDS: HYDROCORTISONE SUC 100 MG INJ IV SCH ×2 (14:31→21:29)
[2018-01-08] MEDS: GABAPENTIN 300 MG CAP PO SCH ×2 (14:31→20:27)
[2018-01-08] MEDS: LIPASE/PROTEASE/AMYLASE CAP PO SCH ×2 (14:31→20:27)
[2018-01-08] MEDS ORDERED: DIPHENHYDRAMINE 50 MG/ML VIAL IV ONE (15:00)
--- NOTE | 2018-01-08 15:22 | CON ---
Date of Consultation: 01/08/2018 Reason For Service: Right leg nonhealing ulcer. History Of Present Illness: This is the case of a 77-year-old patient, who was admitted with a [facility] diagnosis of sepsis, etiology unknown. Found to have an open wound on the right lower leg. Admit komal to the ICU and a surgical consult was obtained for evaluation of the wound. [facility] She came to us not too long ago with cellulitis of the opposite leg that required IV antibiotics and then an open ulcer on the right leg that required surgical debrideme nt. The patient has been doing well since then. She has been followed up weekly at the [facility]. Past Medical History: See my previous consult. Past Surgical History: See my previous consult. Allergies: SEE MY PREVIOUS CONSULT. Family History: See my previous consult. Review of Systems: Constitutional: Denies any fever today, although she claimed fever before. She had ulcer before. Respiratory: Denies any shortness of breath. Gastrointestinal: Denies any nausea, vomiting, melena or hematochezia Genitourinary: The patient st ates some dysuria, but no hematuria. Musculoskeletal/Skin: The patient has a right lower extremity venous stasis ulcer with no fluctuancy present. The base of the ulcer looks with good granulation with no evidence of purulent discharge o r cellulitis at this time. Extremities: The peripheral pulses are present bilaterally. No cyanosis. Laboratory Data: Blood work shows WBC count of 11.3 with hemoglobin of 13.7, and platelets of 84. I NR is 1.5, potassium 3.4, and creatinine is 1.13. Assessment: This is a 77-year-old patient with sepsis of unknown origin. They are looking at the ur ine as may be the cause of that. From the surgical standpoint, the right leg wound area looks clean. Excellent granulation tissue. No necrotic tissue present. We recommend this patient to have Masood l daily, leg elevation, and follow up at the wound healing center after discharge. PINO/AZIZA Voice ID: [id number] Report ID: [id number]
[2018-01-08] MEDS ORDERED: DIPHENHYDRAMINE 25 MG TAB/CAP PO PRN (16:00)
[2018-01-08] MEDS: WARFARIN SODIUM 3 MG TAB PO SCH (18:19)
[2018-01-08] MEDS: ATORVASTATIN 10 MG TAB PO SCH (20:27)
[2018-01-09] MEDS ORDERED: CEFEPIME 1 GM/VIAL IV SCH (01:00)
[2018-01-09] MEDS ORDERED: CEFEPIME 1 GM/100 ML BAG IV ONE (01:08)
[2018-01-09] MEDS ORDERED: VANCOMYCIN 1.75 GM in NA CHLORIDE 0.9% 500 ML IVPB SCH (04:00)
[2018-01-09] MEDS: NA CHLORIDE 0.9% 1,000 ML IV SCH ×4 (04:10→21:30)
[2018-01-09] MEDS: TRAMADOL HCL 50 MG TAB PO PRN (04:10)
[2018-01-09] MEDS: LEVOTHYROXINE SOD 0.125 MG TAB PO SCH (05:24)
[2018-01-09] MEDS: LIOTHYRONINE SOD 5 MCG TAB PO SCH (05:24)
[2018-01-09 05:30] LABS: Absolute Lymphocytes (CBC) 0.7 K/uL (0.7-4.9); Absolute Monocytes 0.2 K/uL (0.1-1.3); Basophils % 0.2 % (0-1.3); Eosinophils % 0.4 % (0-4.4); Hematocrit 35.7 % (36.0-45.0); Lymphocytes % 7.6 % (15.3-44.8); MCH 32.5 pg (27.0-35.0); MCV 99.8 fL (80-100); MPV 10.7 fL (7.6-11.3); Monocytes % 2.1 % (3.3-12.3); RBC Red Blood Cell Count 3.58 M/uL (3.86-4.86)
[2018-01-09 05:34] LABS: Protime INR 1.8
[2018-01-09 05:43] LABS: Potassium 4.3 mEq/L (3.6-5.0)
[2018-01-09] MEDS: INSULIN -REGULAR HUMAN 50 UNIT/0.5 ML ML SQ SCH ×4 (07:30→21:00)
[2018-01-09] MEDS: GABAPENTIN 300 MG CAP PO SCH ×3 (08:39→21:22)
[2018-01-09] MEDS: PANTOPRAZOLE 40MG TABLET PO SCH (08:40)
[2018-01-09] MEDS: FENOFIBRATE 48 MG TAB PO SCH (08:40)
[2018-01-09] MEDS: HYDROCORTISONE SUC 100 MG INJ IV SCH ×2 (08:41→21:23)
[2018-01-09] MEDS: SOMATROPIN SQ SCH (08:41)
[2018-01-09] MEDS: CEFTRIAXONE/SWI 1gm 1 GM/10 ML SYR IV SCH (08:42)
[2018-01-09] MEDS: LIPASE/PROTEASE/AMYLASE CAP PO SCH ×3 (08:57→21:22)
[2018-01-09] MEDS ORDERED: SOMATROPIN SQ SCH (09:00)
[2018-01-09] MEDS ORDERED: LEVOTHYROXINE SODIUM PO SCH (09:00)
[2018-01-09] MEDS ORDERED: CEFEPIME/SWI 1gm 1 GM/10 ML SYR IV SCH (09:00)
[2018-01-09] MEDS ORDERED: DEXLANSOPRAZOLE PO SCH (09:00)
--- NOTE | 2018-01-09 10:07 | RAD REPORT ---
EXAM DESCRIPTION: US - Renal Ultrasound-Complete - 01/09/2018 9:19 am CLINICAL HISTORY: Chronic renal disease, right flank pain COMPARISON: Abdomen ultrasound December 19, CT study February 2017 FINDINGS: The right kidney measures 9.6 x 5.7 x 5.7 cm. The left kidney measures 9.75.1 x 4.8 cm. C ortical thickness is normal. Echogenicity is within normal limits. There is a slight increase in scar ical echogenicity that can be accounted for by large body habitus. Patient had limited mobility. No h ydronephrosis or suspicious renal mass. Exam is limited by body habitus and limited mobility. IMPRESSION: No hydronephrosis or suspicious renal mass. Renal cortical echogenicity is within normal limits. Sonographic findings do not indicate any signifi cant medical renal disease.
[2018-01-09] MEDS: COLLAGENASE 30 GM OINTMENT TOP SCH (15:21)
--- NOTE | 2018-01-09 15:45 | P.PN ---
Subjective Date of Service: 01/09/18 Primary Care Provider: Dr. Iraheta;Card-Dr. Belcher;Endo-Dr. Mcgregor;GI-Dr. Bush Chief Complaint: sepsis Subjective: Improving Physical Examination - Vital Signs Temperature: 97.6 F Blood Pressure: 93/42 Pulse: 82 Respirations: 11 Pulse Ox (%): 97 - Physical Exam General: Alert, In no apparent distress, Oriented x3, Cooperative HEENT: Atraumatic Neck: Supple Respiratory: Clear to auscultation bilaterally, Normal air movement Cardiovascular: Normal pulses, Regular rate/rhythm Gastrointestinal: Normal bowel sounds, Soft and benign, Non-distended, No masses , No rebound, No guarding Musculoskeletal: No tenderness, No warmth Integumentary: Other (Minimal erythema to the lower extremities bilateral.) Neurological: Normal speech, Normal strength at 5/5 x4 extr, Normal tone - Studies Microbiology Data (last 24 hrs): 01/07/18 06:51 Clean Catch Urine [place] Count - Final >100,000 CFU/ML. 01/07/18 06:51 Clean Catch Urine - Final Escherichia Coli 01/07/18 04:35 Blood - Blood Aerobic Blood Culture - Final Escherichia Coli 01/07/18 04:35 Blood - Blood Gram Stain - Final 01/07/18 04:35 Blood - Blood Anaerobic Blood Culture - Final Escherichia Coli 01/07/18 04:35 Blood - Blood Gram Stain - Final Medications List Reviewed: Yes Assessment & Plan - Problems (Diagnosis) (1) Sepsis Onset Date: 01/09/18 Current Visit: Yes Status: Acute Plan: Urine and blood cultures positive for E coli. Will adjust IV antibiotic therapy for narrow spectrum. Will recheck blood and urine. Infectious disease consulted. Patient may require IV antibiotic therapy for 2 weeks. Will confirm with infectious disease. If so patient may require skilled placement with PICC line. Will transfer patient to the floor. Patient no longer requiring vasopressor. Qualifiers: Sepsis type: Escherichia coli Qualified Code(s): A41.51 - Sepsis due to Escherichia coli [E. coli] (2) Bacteremia due to Gram-negative bacteria Current Visit: Yes Status: Acute Plan: Continue as above. (3) Adrenal insufficiency Onset Date: 12/06/17 Current Visit: No Status: Chronic Plan: Continue with IV steroids. (4) Chronic use of steroids Onset Date: 12/06/17 Current Visit: No Status: Chronic Plan: Will continue with IV steroids. (5) Diabetes mellitus type II, non insulin dependent Onset Date: 01/20/16 Current Visit: No Status: Chronic Plan: Will continue monitor and adjust appropriately. Continue with Accu-Cheks. (6) Hypothyroidism Onset Date: 01/20/16 Current Visit: No Status: Chronic Plan: Will continue with her medication. Qualifiers: Hypothyroidism type: unspecified Qualified Code(s): E03.9 - Hypothyroidism , unspecified (7) Hyperlipidemia Onset Date: 01/20/16 Current Visit: No Status: Chronic Plan: Continue with her medication. Qualifiers: Hyperlipidemia type: unspecified Qualified Code(s): E78.5 - Hyperlipidemia , unspecified (8) Hypertension Onset Date: 01/20/16 Current Visit: No Status: Chronic Plan: Blood pressure on hold due to sepsis. Qualifiers: Hypertension type: essential hypertension Qualified Code(s): I10 - Essential (primary) hypertension (9) Chronic anticoagulation Onset Date: 01/20/16 Current Visit: No Status: Chronic Plan: Will continue with Coumadin. Will continue monitor INR. Hold Coumadin if INR greater than 3.0 (10) Atrial fibrillation Onset Date: 12/30/16 Current Visit: No Status: Chronic Plan: Continue with her medication Qualifiers: Atrial fibrillation type: chronic Qualified Code(s): I48.2 - Chronic atrial fibrillation (11) UTI (urinary tract infection) Onset Date: 01/20/16 Current Visit: No Status: Acute Plan: Continue as above. Qualifiers: Urinary tract infection type: site unspecified Discharge Plan: Other (Home versus skilled placement) Plan to discharge in: Greater than 2 days Time Spent Managing Pts Care (In Minutes): 55
--- NOTE | 2018-01-09 16:07 | ECHO ---
HEIGHT: 5 ft 4 in WEIGHT: 205 lb 8 oz DATE OF STUDY: 01/09/[address]: Rani Zelaya MD 2-DIMENSIONAL: YES M.MODE: YES DOPPLER: YES COLOR FLOW: YES TDS: PORTABLE: DEFINITY: BUBBLE STUDY: DIAGNOSIS: SHORTNESS OF BREATH CARDIAC HISTORY: CATHERIZATION: NO SURGERY: NO PROSTHETIC VALVE: NO PACEMAKER: NO MEASUREMENTS (cm) DIASTOLIC (NORMALS) SYSTOLIC (NORMALS) IVSd 1.0 (0.6-1.2) LA Diam 3.6 (1.9-4.0) LVEF 62% LVIDd 4.7 (3.5-5.7) LVIDs 3.1 (2.0-3.5) %FS 33% LVPWd 1.0 (0.6-1.2) Ao Diam 3.0 (2.0-3.7) 2 DIMENSIONAL ASSESSMENT: RIGHT ATRIUM: NORMAL LEFT ATRIUM: NORMAL RIGHT VENTRICLE: NORMAL LEFT VENTRICLE: NORMAL TRICUSPID VALVE: NORMAL MITRAL VALVE: MITRAL ANNULAR CALCIFICATION PULMONIC VALVE: NORMAL AORTIC VALVE: NORMAL PERICARDIAL EFFUSION: SMALL AORTIC ROOT: NORMAL LEFT VENTRICULAR WALL MOTION: NORMAL DOPPLER/COLOR FLOW: MILD MITRAL REGURGITATION COMMENTS: NORMAL LEFT VENTRICULAR EJECTION FRACTION. MITRAL ANNULAR CALCIFICATION. VERY SMALL PERICARDIAL EFFUSION. MILD MITRAL REGURGITATION. TECHNOLOGIST: PARVEEN KNAPP
[2018-01-09] MEDS: WARFARIN SODIUM 3 MG TAB PO SCH (17:44)
--- NOTE | 2018-01-09 18:13 | CON ---
History Of Present Illness: This is a 77-year-old female who came in with bacteremia and urosepsis s econdary to E. coli. The patient is currently being treated with IV antibiotic including Rocephin, w as earlier on vancomycin, Zosyn, and cefepime. The patient is allergic to Cipro and rivaroxaban. De nies any headache, nausea, vomiting, chest pain, abdominal pain, constipation, or diarrhea. The aracelis ent has been taken off the vasopressors. Past Medical History: Includes diabetes mellitus, stroke in 2013, hypertension, anxiety, pituitary g land tumor removed, GERD, hypothyroidism, atrial fibrillation, steroid treatment, hyperlipidemia, hys terectomy, bilateral carpal tunnel surgery, left lumpectomy, brain tumor removed, appendectomy. Family History: Heart problems and hypertension. Social History: Nonsmoker, nondrinker. Family History: Noncontributory. Review of Systems: A 10-point review was done. Physical Examination: General: This is a 77-year-old female, very pleasant to talk to, lying in bed, not in any acute card iopulmonary distress. Vital Signs: Temperature is 98, pulse 84, respiration 18, blood pressure 106/61. HEENT: Unremarkable. Neck: Supple. Lungs: Basal crackles. Heart: S1, S2. Regular. Abdomen: Soft, nontender. Bowel sounds present. Obese. Extremity: Trace edema with larger venous ulcer noted on the right leg with some slough. Hyperpigme ntation noted in both legs. Laboratory Data: Shows WBC 9000, hemoglobin 11.6, platelets are 74. Chemistry shows sodium 143, pot assium 4.3, chloride 117, bicarb 21, BUN 30, creatinine 1.14, glucose is 152. Microdata shows E. col i in her urine and blood. Wound culture from the right leg shows no growth. Urine has more than 100 ,000 bacteria which are sensitive to Rocephin. E. coli in blood is also sensitive to Rocephin. Assessment And Plan: A 77-year-old female who came with urosepsis and bacteremia. Urosepsis is impr fran. Continue IV antibiotic for another 2-3 days. We will reassess the patient tomorrow and do fur ther recommendation. Continue antibiotic and supportive care, total course of 2 weeks. NF/MODL Voice ID: [id number] Report ID: [id number]
[2018-01-09] MEDS: ATORVASTATIN 10 MG TAB PO SCH (21:22)
--- NOTE | 2018-01-10 00:58 | CON ---
Date of Consultation: 01/09/2018 Chief Complaint: Acute kidney injury. History Of Present Illness: The patient was found to have moderately severe acute kidney injury with prerenal azotemia. There is high BUN and creatinine ratio associated with renal hypoperfusion due to hypotension and sepsis. The patient also has underlying adrenal insufficiency, which was contributory to renal hypoperfusion and hypovolemia. The patient was found to have urinary tract infection. Urinalysis showed microscopic hematuria and leukocyturia. There was also 1+ protein present. The patient was admitted to ICU, was started on steroids and IV fluids, received multiple boluses of normal saline for volume resuscitation, and she required IV pressors for blood pressure support. The patient was started on broad spectrum antibiotics, and blood cultures were obtained. Current blood cultures status is E. coli from the urine and from the blood. Review of Systems: Constitutional: The patient is complaining of generalized weakness. Denies chills. Eyes: Denies vision changes. Ears, Nose, Mouth, and Throat: Denies sore throat or earache. Respiratory: Denies PND, orthopnea, has some dyspnea with activities. She is bed-bound. Cardiovascular: Denies chest pain, palpitations, or syncope. GI: Complaints of right upper quadrant abdominal pain. : Denies hematuria, had some urinary discomfort and frequency. Musculoskeletal: Denies muscle aches or joint swelling. Has some legs edema. All other systems reviewed and all are negative. Past Medical History: Adrenal insufficiency, hypertension, hyperlipidemia, diabetes mellitus, hypothyroid, chronic pancreatitis, hysterectomy, left breast lumpectomy, brain tumor removal, benign pituitary gland removal, appendectomy, history of CVA back in 2012, anxiety, history of pituitary gland removal, chronic anticoagulation, atrial fibrillation. Family History: Mother had heart disease, hypertension, of heart attack. Father had heart disease, of heart attack. Social History: Denies tobacco, alcohol, or illicit drugs. Physical Examination: General: Alert, oriented, not in acute distress. Eyes: Anicteric sclerae. EOMI. Ears, Nose, Mouth, and Throat: Oral mucosa moist. No pallor. Neck: Supple. No bruise. Lungs: Diminished breath sound in the bases. Few crackles. Heart: S1, S2. No pericardial friction or rub. Abdomen: Soft. There is some upper quadrant tenderness. No rebound. No guarding. Extremities: Chronic dermatitis. No joint effusion. Sling swelling seen in both ankles. Neurological: Moving extremities. Cranial nerves intact. Psychiatric: Alert and oriented x3. Normal affect. Laboratory Data: PT 17.8, INR 1.5. WBC 4.1, hemoglobin 13.1, platelet count 66 ,000. BNP 232. Sodium 146, potassium 3.9. BUN 27, creatinine 1.01. Glucose 82 , lipase 28. Bilirubin 0.8. Urinalysis showed specific gravity 1.015, pH 5.5, ketones negative, blood 2+, nitrite negative, leukocyte esterase 1+, wbc's 20 to 50, and rbc's from 5-10. Protein 1 blood. Blood work today showed sodium 143, potassium 4.3, chloride 117, bicarbonate 21. BUN 30, creatinine 1.14, glucose 152, calcium 7.8. Diagnostic Data: Renal ultrasound showed right kidney 9.6, left kidney 9.75, cortical thickness normal. Echogenicity within normal limits. No hydronephrosis. No suspicious mass. There is slight increase in cortical echogenicity that can be accounted for large body habitus. Impression And Plan: 1. Acute kidney injury. There is ongoing oliguric urine output and the patient was started on IV NS for volume resuscitation as well as steroids and pressors to treat severe hypotension. Plan is to advance IV fluids and normal saline infusion was increased to 125 cc/hour. The patient will have bladder scan to rule out urinary retention. 2. Urinary tract infection, urosepsis, continue antibiotics. There is no evidence of obstructive uropathy. Monitor renal panel and electrolytes and advance IV fluids for volume resuscitation to prevent renal hypoperfusion. 3. History of hypertension, currently medication for blood pressure on hold due to hypotension. Plan is to avoid FRANCHESCA inhibitor due to acute kidney injury and risk of hyperkalemia. 4. Continue antibiotics for urosepsis. Adjust dose to renal function. YESENIA/MODL Voice ID: [id number] Report ID: [id number] MTDD
[2018-01-10] MEDS: NA CHLORIDE 0.9% 1,000 ML IV SCH ×2 (05:25→10:00)
[2018-01-10] MEDS: LEVOTHYROXINE SOD 0.125 MG TAB PO SCH (05:25)
[2018-01-10] MEDS: LIOTHYRONINE SOD 5 MCG TAB PO SCH (05:25)
[2018-01-10 05:42] LABS: Absolute Lymphocytes (CBC) 0.7 K/uL (0.7-4.9); Absolute Monocytes 0.2 K/uL (0.1-1.3); Absolute Neutrophil 6.2 K/uL (1.8-8.0); Basophils % 0.1 % (0-1.3); Eosinophils % 0.2 % (0-4.4); Hematocrit 31.6 % (36.0-45.0); Lymphocytes % 9.8 % (15.3-44.8); MCH 32.1 pg (27.0-35.0); MCV 99.3 fL (80-100); MPV 10.9 fL (7.6-11.3); Monocytes % 2.6 % (3.3-12.3); RBC Red Blood Cell Count 3.18 M/uL (3.86-4.86)
[2018-01-10 05:43] LABS: Protime INR 2.38
[2018-01-10 05:52] LABS: Magnesium 1.7 mg/dL (1.8-2.5)
[2018-01-10 06:38] VITALS: BMI 37.3
[2018-01-10] MEDS ORDERED: MAGNESIUM SULFATE 1 gm IVPB 1 GM/100 ML BAG IV ONE ×2 (07:00→09:51)
[2018-01-10] MEDS ORDERED: FUROSEMIDE 40 MG/4 ML VIAL IV ONE (07:25)
[2018-01-10] MEDS ORDERED: FUROSEMIDE 40 MG/4 ML VIAL ONE (07:29)
[2018-01-10] MEDS: INSULIN -REGULAR HUMAN 50 UNIT/0.5 ML ML SQ SCH ×4 (07:30→21:00)
[2018-01-10 07:45] LABS: Arterial Blood Carboxyhemoglob 1.2 % (0-1.5); Blood Gas Oxyhemoglobin 96.7 % (94-97); Blood O2 Saturation 98.8 % (92-98.5)
[2018-01-10] MEDS: COLLAGENASE 30 GM OINTMENT TOP SCH (09:00)
[2018-01-10] MEDS ORDERED: DRISDOL (VITAMIN D=ERGOCALCIFEROL) 50000 UNIT CAP PO SCH (09:00)
--- NOTE | 2018-01-10 09:16 | RAD REPORT ---
EXAM DESCRIPTION: RAD - Chest Single View - 01/10/2018 7:45 am CLINICAL HISTORY: Shortness of breath COMPARISON: 01/08/2018 FINDINGS: Portable technique limits examination quality. Lungs are underinflated with linear opacities in both lung bases likely representing subsegmental ate lectasis or less likely developing infiltrate. The heart is mildly prominent in size. Right-sided [place] ous catheter its tip in the SVC. No displaced fractures.
--- NOTE | 2018-01-10 10:08 | RAD REPORT ---
EXAM DESCRIPTION: CT - Chest Abd Pelvis Wo Con - 01/10/2018 9:29 am CLINICAL HISTORY: Chest and abdomen pain. Right-sided pain. COMPARISON: 01/09/2018 12/04/[address] scans are performed using dose optimization technique as appropriate and may includ e automated exposure control or mA/KV adjustment according to patient size. FINDINGS: Mild linear subsegmental atelectasis in both lung bases posteriorly.Small bilateral pleura l effusions.No intrathoracic adenopathy. Several low-density liver lesions are noted, incompletely assessed due to lack of IV contrast but mos t likely representing cysts. The spleen, pancreas, adrenal glands and kidneys are within normal limit s. Mild gallbladder distention. No bowel obstruction, free air, free fluid or abscess. No pathologic lymphadenopathy in the abdomen o r pelvis. Prominent lumbosacral degenerative changes. IMPRESSION: Small bilateral pleural effusions with atelectasis in both posterior lung bases. Several low-density hepatic lesions are incompletely assessed but favored to represent benign cysts a nd demonstrate no appreciable change since 2010. Gallbladder distension. Most likely, this is related to fasting, however sonographic follow-up may be considered if clinically indicated. Moderate lumbosacral degenerative changes.
[2018-01-10] MEDS: LIPASE/PROTEASE/AMYLASE CAP PO SCH ×3 (10:26→21:22)
[2018-01-10] MEDS: GABAPENTIN 300 MG CAP PO SCH ×3 (10:26→21:23)
[2018-01-10] MEDS: PANTOPRAZOLE 40MG TABLET PO SCH (10:26)
[2018-01-10] MEDS: SOMATROPIN SQ SCH (10:26)
[2018-01-10] MEDS: CEFTRIAXONE/SWI 1gm 1 GM/10 ML SYR IV SCH (10:27)
[2018-01-10] MEDS: FENOFIBRATE 48 MG TAB PO SCH (10:27)
[2018-01-10] MEDS: HYDROCORTISONE SUC 100 MG INJ IV SCH ×2 (10:29→21:24)
--- NOTE | 2018-01-10 11:22 | P.PN ---
Subjective Date of Service: 01/10/18 Primary Care Provider: Dr. Iraheta;Card-Dr. Belcher;Endo-Dr. Mcgregor;GI-Dr. Bush Chief Complaint: sepsis Subjective: Other (Patient was having some shortness of breath, increased fatigue this morning.) Physical Examination - Vital Signs Temperature: 97.8 F Blood Pressure: 171/77 Pulse: 71 Respirations: 18 Pulse Ox (%): 99 - Physical Exam General: Alert, In no apparent distress, Cooperative HEENT: Atraumatic Neck: Supple Respiratory: Diminished (Bilateral) Cardiovascular: Normal pulses, Regular rate/rhythm Gastrointestinal: Normal bowel sounds, Soft and benign, Non-distended, No tenderness, No masses, No rebound, No guarding Musculoskeletal: No erythema, No tenderness, No warmth Integumentary: Tenderness/swelling (Some edema to the lower extremities bilateral), Other (Erythema noted to the vaginal region and pannus area) Neurological: Normal speech, Normal strength at 5/5 x4 extr, Normal tone, Normal affect - Studies Microbiology Data (last 24 hrs): 01/07/18 05:45 Wound - Right Calf Gram Stain - Final 01/07/18 05:45 Wound - Right Calf Culture & Sensitivity - Final 01/07/18 06:51 Clean Catch Urine [place] Count - Final >100,000 CFU/ML. 01/07/18 06:51 Clean Catch Urine - Final Escherichia Coli 01/07/18 04:35 Blood - Blood Aerobic Blood Culture - Final Escherichia Coli 01/07/18 04:35 Blood - Blood Gram Stain - Final 01/07/18 04:35 Blood - Blood Anaerobic Blood Culture - Final Escherichia Coli 01/07/18 04:35 Blood - Blood Gram Stain - Final Medications List Reviewed: Yes Assessment & Plan - Problems (Diagnosis) (1) Sepsis Onset Date: 01/09/18 Current Visit: Yes Status: Acute Plan: Urine and blood cultures positive for E coli. IV antibiotics have been adjusted. Patient now on Rocephin. Will discuss when affects disease to see if the patient can be transition to oral medication for 2 weeks or with IV medication. This morning patient was short of breath. A suspected pulmonary edema. Chest x- ray and CT scan revealed pulmonary edema/pleural effusion. Patient given IV Lasix 40 mg x1. IV fluids discontinued. Patient was reassessed. Patient much improved with treatment. Will monitor closely. Will recheck chest x-ray this afternoon. Will discuss with nephrology. Qualifiers: Sepsis type: Escherichia coli Qualified Code(s): A41.51 - Sepsis due to Escherichia coli [E. coli] (2) Bacteremia due to Gram-negative bacteria Current Visit: Yes Status: Acute Plan: Continue as above. (3) Adrenal insufficiency Onset Date: 12/06/17 Current Visit: No Status: Chronic Plan: Continue with IV steroids. Will consider changing to oral medication tomorrow (4) Chronic use of steroids Onset Date: 12/06/17 Current Visit: No Status: Chronic Plan: Will continue with IV steroids. Will consider changing to oral medication tomorrow (5) Diabetes mellitus type II, non insulin dependent Onset Date: 01/20/16 Current Visit: No Status: Chronic Plan: Will continue monitor and adjust appropriately. Continue with Accu-Cheks. (6) Hypothyroidism Onset Date: 01/20/16 Current Visit: No Status: Chronic Plan: Will continue with her medication. Qualifiers: Hypothyroidism type: unspecified Qualified Code(s): E03.9 - Hypothyroidism , unspecified (7) Hyperlipidemia Onset Date: 01/20/16 Current Visit: No Status: Chronic Plan: Continue with her medication. Qualifiers: Hyperlipidemia type: unspecified Qualified Code(s): E78.5 - Hyperlipidemia , unspecified (8) Hypertension Onset Date: 01/20/16 Current Visit: No Status: Chronic Plan: Will provide hydralazine IV as needed. Once blood pressure more stable then will consider restarting back on her medication. Qualifiers: Hypertension type: essential hypertension Qualified Code(s): I10 - Essential (primary) hypertension (9) Chronic anticoagulation Onset Date: 01/20/16 Current Visit: No Status: Chronic Plan: Will continue with Coumadin. Will continue monitor INR. Hold Coumadin if INR greater than 3.0 (10) Atrial fibrillation Onset Date: 12/30/16 Current Visit: No Status: Chronic Plan: Continue with her medication Qualifiers: Atrial fibrillation type: chronic Qualified Code(s): I48.2 - Chronic atrial fibrillation (11) UTI (urinary tract infection) Onset Date: 01/20/16 Current Visit: No Status: Acute Plan: Continue as above. Qualifiers: Urinary tract infection type: site unspecified (12) Pulmonary edema Current Visit: Yes Status: Acute Plan: Patient had pleural effusions on CT scan. Patient given IV Lasix. IV fluids discontinued. Patient much improved with treatment. Will monitor closely. Will recheck chest x-ray later today. Echocardiogram shows very small pericardial effusion. CT scan did not show this. Will monitor closely. Qualifiers: Chronicity: acute Qualified Code(s): J81.0 - Acute pulmonary edema (13) Shortness of breath Current Visit: Yes Status: Acute Plan: Likely secondary to pulmonary edema. Will continue with above plan of care. (14) CHF (congestive heart failure) Onset Date: 01/23/16 Current Visit: No Status: Acute Plan: Suspect diastolic dysfunction. IV fluids discontinued. Patient given IV Lasix this morning with improvement. Will continue with Lasix 20 mg IV twice daily. Will discuss with nephrology. Qualifiers: Heart failure type: diastolic Heart failure chronicity: acute on chronic Qualified Code(s): I50.33 - Acute on chronic diastolic (congestive) heart failure (15) Vaginitis Current Visit: Yes Status: Acute Plan: Will provide antifungal medication. Qualifiers: Chronicity: acute Qualified Code(s): N76.0 - Acute vaginitis (16) Dermatitis Current Visit: No Status: Acute Plan: Will provide medication Discharge Plan: Home Plan to discharge in: Greater than 2 days Time Spent Managing Pts Care (In Minutes): 55
[2018-01-10] MEDS ORDERED: HYDROCORTISONE 1 % CREAM 30GM TOP PRN (11:23)
--- NOTE | 2018-01-10 12:21 | P.PN ---
Subjective Date of Service: 01/10/18 Primary Care Provider: Dr. Iraheta;Card-Dr. Belcher;Endo-Dr. Mcgregor;GI-Dr. Bush Chief Complaint: venous stasis ulcer right leg Review of Systems Eyes: Unremarkable Respiratory: Unremarkable Gastrointestinal: Unremarkable Musculoskeletal: As per HPI Integumentary: As per HPI Physical Examination - Vital Signs Temperature: 97.8 F Blood Pressure: 171/77 Pulse: 71 Respirations: 18 Pulse Ox (%): 99 - Physical Exam General: Alert, Oriented x3 HEENT: PERRLA Integumentary: No cyanosis, Venous stasis ulcer (granulation, no cellulitis) - Studies Microbiology Data (last 24 hrs): 01/07/18 05:45 Wound - Right Calf Gram Stain - Final 01/07/18 05:45 Wound - Right Calf Culture & Sensitivity - Final 01/07/18 06:51 Clean Catch Urine [place] Count - Final >100,000 CFU/ML. 01/07/18 06:51 Clean Catch Urine - Final Escherichia Coli Medications List Reviewed: Yes Assessment And Plan - Plan santyl to right leg daily f/u at wound healing center after discharge. Physician Review: Patient Assessed, Agree with Above Assessment and Plan
[2018-01-10] MEDS: FUROSEMIDE 20 MG/ 2ML VIAL IV SCH (16:34)
[2018-01-10] MEDS: WARFARIN SODIUM 3 MG TAB PO SCH (16:34)
--- NOTE | 2018-01-10 17:06 | PN ---
Subjective: The patient lying in bed, feels slightly better since this morning when she was quite sh ort of breath. Denies any chest pain, abdominal pain, constipation, or diarrhea. Objective: Vital Signs: Temperature 97.8, pulse 71, respiration 18, blood pressure 171/77. Lungs: Basal crackles. Heart: S1, S2. Regular. Abdomen: Soft, nontender. Bowel sounds positive. Extremity: Trace edema right leg ulcer noted. Hyperpigmentation in the legs also noted. Laboratory Data: WBC 7.1, hemoglobin 10.2, platelets are 71. Chemistry shows sodium 144, potassium 4, chloride 117, bicarb 20, BUN 27, creatinine 0.75, glucose 155. Microdata; E. coli in blood and wo und, currently being treated with Rocephin. Assessment And Plan: Pneumonitis, improving. Leukocytosis, improving. Right leg ulcer, improving. Venous stasis ulcer, thrombocytopenia. Bilateral lower lobe infiltrate. Continue antibiotic, total course of 2 weeks. We will follow the patient as needed. Might need prolonged antibiotic. HERIBERTO/AZIZA Voice ID: [id number] Report ID: [id number]
--- NOTE | 2018-01-10 18:32 | RAD REPORT ---
EXAM DESCRIPTION: Attilat Single View01/10/2018 6:18 pm CLINICAL HISTORY: sob COMPARISON: Jan 10 2018 FINDINGS: The lungs appear clear of acute infiltrate. The heart is normal size. Small pleural effus ions are present. A central venous line has its tip in the superior vena cava IMPRESSION: No significant change since the prior exam
--- NOTE | 2018-01-10 18:51 | PN ---
Date of Progress Note: 01/10/2018 Subjective: The patient doing better. The patient was admitted with sepsis and acute kidney injury. Creatinine jumped to 1.3. The patient's workup was negative. Physical Examination: Vital Signs: When I saw the patient, blood pressure of 171/77, pulse of 71. Afebrile. Chest: Crackles at the base. Heart: S1, S2. Regular. Systolic murmur. Abdomen: Soft, nontender. Extremities: Trace edema. Laboratory Data: Sodium 144, potassium 4, bicarb 20, chloride 117, anion gap of 7, BUN is 27, creati nine 0.7, GFR up to 75. Calcium 8.2, magnesium 1.7. Urinalysis; wbc of 50, +2 blood, +1 protein. Medications: Current medications the patient is on include ceftriaxone, Phenergan, Coumadin, fenofib rate, atorvastatin, hydralazine, Lasix 20 b.i.d., Zofran. Assessment And Plan: 1.Acute kidney injury secondary to toxic acute tubular necrosis, slightly on the wet side. I am goi ng to go ahead and keep holding IV fluid. We will monitor the patient. I agree with Lasix. 2.Urinary tract infection, secondary to Escherichia coli. Sensitive to ceftriaxone and quinolone. Will continue cephalosporin for the time being, dose appropriate. We will follow up. 3.Hypertension, uncontrolled. I going to start the patient on carvedilol and Norvasc, and we will f ollow up. 4.Hypomagnesemia. We will supplement. 5.Proteinuria. I am going to send for quantification for the protein creatinine. EYAL Voice ID: [id number] Report ID: [id number]
[2018-01-10] MEDS ORDERED: CARVEDILOL 6.25 MG TAB PO SCH (21:00)
[2018-01-10] MEDS: ATORVASTATIN 10 MG TAB PO SCH (21:22)
[2018-01-10] MEDS: FAMOTIDINE 20 MG TAB PO SCH (21:23)
[2018-01-10] MEDS: MICONAZOLE 7 APPL/48 GM TUBE VAG SCH (21:25)
[2018-01-10] MEDS: ACETAMINOPHEN 500 MG TAB PO PRN (22:10)
[2018-01-11 05:24] LABS: Absolute Lymphocytes (CBC) 0.6 K/uL (0.7-4.9); Absolute Monocytes 0.2 K/uL (0.1-1.3); Absolute Neutrophil 2.7 K/uL (1.8-8.0); Basophils % 0.1 % (0-1.3); Eosinophils % 0.3 % (0-4.4); Hematocrit 31.2 % (36.0-45.0); Lymphocytes % 18.3 % (15.3-44.8); MCH 31.7 pg (27.0-35.0); MCV 96.6 fL (80-100); MPV 10.5 fL (7.6-11.3); Monocytes % 4.4 % (3.3-12.3); RBC Red Blood Cell Count 3.23 M/uL (3.86-4.86)
[2018-01-11 05:25] LABS: Protime INR 3.12
[2018-01-11 05:30] LABS: Urine Protein/Creatinine Ratio 0.27 (<0.15)
[2018-01-11 05:34] LABS: Albumin 2.6 g/dL (3.2-5.5); Magnesium 1.8 mg/dL (1.8-2.5); Phosphorus 2.8 mg/dL (2.5-4.3)
[2018-01-11] MEDS: LEVOTHYROXINE SOD 0.125 MG TAB PO SCH (05:53)
[2018-01-11] MEDS: LIOTHYRONINE SOD 5 MCG TAB PO SCH (05:53)
[2018-01-11] MEDS ORDERED: MAGNESIUM SULFATE 1 gm IVPB 1 GM/100 ML BAG IV ONE ×2 (06:23→11:14)
[2018-01-11] MEDS: KCL 20 MEQ/100 mL IVPB 20 MEQ/100 ML BAG IV SCH ×2 (07:00→09:00)
[2018-01-11] MEDS: INSULIN -REGULAR HUMAN 50 UNIT/0.5 ML ML SQ SCH ×4 (07:30→21:15)
--- NOTE | 2018-01-11 08:03 | RAD REPORT ---
EXAM DESCRIPTION: RAD - Chest Single View - 01/11/2018 12:29 am CLINICAL HISTORY: Device placement PICC line placement COMPARISON: January 10 FINDINGS: A PICC line has been inserted with its tip in the superior vena cava. A central venous l ine has its tip in the superior vena cava. The lungs appear clear of acute infiltrate. The heart is normal size. IMPRESSION: PICC line with its tip in the superior vena cava
--- NOTE | 2018-01-11 08:03 | RAD REPORT ---
EXAM DESCRIPTION: Brandon Single View01/11/2018 1:28 am CLINICAL HISTORY: Chest pain COMPARISON: January 11, 2018 FINDINGS: A central venous line has been removed. A PICC line has its tip in the superior vena cava The lungs appear clear of acute infiltrate. The heart is normal size
[2018-01-11] MEDS: HYDROCORTISONE SUC 100 MG INJ IV SCH (09:00)
[2018-01-11] MEDS: COLLAGENASE 30 GM OINTMENT TOP SCH (09:00)
[2018-01-11] MEDS ORDERED: POTASSIUM 25 MEQ EFFERV TAB PO ONE (09:23)
[2018-01-11] MEDS: FUROSEMIDE 20 MG/ 2ML VIAL IV SCH (09:24)
[2018-01-11] MEDS: CEFTRIAXONE/SWI 1gm 1 GM/10 ML SYR IV SCH (09:24)
[2018-01-11] MEDS: GABAPENTIN 300 MG CAP PO SCH ×3 (09:24→21:13)
[2018-01-11] MEDS: AMLODIPINE 10 MG TAB PO SCH (09:25)
[2018-01-11] MEDS: CARVEDILOL 12.5 MG TAB PO SCH ×2 (09:25→21:14)
[2018-01-11] MEDS: FAMOTIDINE 20 MG TAB PO SCH ×2 (09:25→21:12)
[2018-01-11] MEDS: FENOFIBRATE 48 MG TAB PO SCH (09:25)
[2018-01-11] MEDS: PANTOPRAZOLE 40MG TABLET PO SCH (09:31)
[2018-01-11] MEDS: LIPASE/PROTEASE/AMYLASE CAP PO SCH ×3 (09:32→21:12)
[2018-01-11] MEDS: HYDRALAZINE HCL 20 MG/ML VIAL IV PRN (09:32)
--- NOTE | 2018-01-11 09:41 | P.PN ---
Subjective Date of Service: 01/11/18 Primary Care Provider: Dr. Iraheta;Card-Dr. Belcher;Endo-Dr. Mcgregor;GI-Dr. Bush Chief Complaint: venous stasis ulcer right leg Subjective: Improving (Patient feels better today. No significant shortness of breath noted.) Physical Examination - Vital Signs Temperature: 97.7 F Blood Pressure: 157/84 Pulse: 72 Respirations: 20 Pulse Ox (%): 98 - Physical Exam General: Alert, In no apparent distress, Oriented x3, Cooperative HEENT: Atraumatic Neck: Supple Respiratory: Clear to auscultation bilaterally, Other (Better air movement noted ) Cardiovascular: Normal pulses, Regular rate/rhythm Gastrointestinal: Normal bowel sounds, Soft and benign, Non-distended, No tenderness, No masses, No rebound, No guarding Musculoskeletal: No erythema, No tenderness, No warmth Integumentary: No erythema, No warmth, No cyanosis, Tenderness/swelling (Less edema to the lower extremities bilateral) Neurological: Normal speech, Normal strength at 5/5 x4 extr, Normal tone - Studies Microbiology Data (last 24 hrs): 01/07/18 05:45 Wound - Right Calf Gram Stain - Final 01/07/18 05:45 Wound - Right Calf Culture & Sensitivity - Final Medications List Reviewed: Yes Assessment & Plan - Problems (Diagnosis) (1) Sepsis Onset Date: 01/09/18 Current Visit: Yes Status: Acute Plan: Urine and blood cultures positive for E coli. Repeat blood cultures and urine cultures so far negative. Patient on IV antibiotic therapy. PICC line in place. Patient will need IV Rocephin 1 g daily for total of 14 days. Arrangements have been made so that she can continue this as an outpatient. Will ambulate patient. Anticipate possible discharge in the next 1-2 days. Case discussed at length with infectious disease. Will recheck chest x-ray today. Patient doing well with added Lasix. Will discuss case further with nephrology. Will wean off oxygen. Qualifiers: Sepsis type: Escherichia coli Qualified Code(s): A41.51 - Sepsis due to Escherichia coli [E. coli] (2) Bacteremia due to Gram-negative bacteria Current Visit: Yes Status: Acute Plan: Continue as above. (3) Adrenal insufficiency Onset Date: 12/06/17 Current Visit: No Status: Chronic Plan: Will change medications to oral (4) Chronic use of steroids Onset Date: 12/06/17 Current Visit: No Status: Chronic Plan: Will change medication to oral (5) Diabetes mellitus type II, non insulin dependent Onset Date: 01/20/16 Current Visit: No Status: Chronic Plan: Will continue monitor and adjust appropriately. Continue with Accu-Cheks. (6) Hypothyroidism Onset Date: 01/20/16 Current Visit: No Status: Chronic Plan: Will continue with her medication. Qualifiers: Hypothyroidism type: unspecified Qualified Code(s): E03.9 - Hypothyroidism , unspecified (7) Hyperlipidemia Onset Date: 01/20/16 Current Visit: No Status: Chronic Plan: Continue with her medication. Qualifiers: Hyperlipidemia type: unspecified Qualified Code(s): E78.5 - Hyperlipidemia , unspecified (8) Hypertension Onset Date: 01/20/16 Current Visit: No Status: Chronic Plan: Will continue to adjust medication Qualifiers: Hypertension type: essential hypertension Qualified Code(s): I10 - Essential (primary) hypertension (9) Chronic anticoagulation Onset Date: 01/20/16 Current Visit: No Status: Chronic Plan: Will continue with Coumadin. Will continue monitor INR. Hold Coumadin if INR greater than 3.0 (10) Atrial fibrillation Onset Date: 12/30/16 Current Visit: No Status: Chronic Plan: Continue with her medication Qualifiers: Atrial fibrillation type: chronic Qualified Code(s): I48.2 - Chronic atrial fibrillation (11) UTI (urinary tract infection) Onset Date: 01/20/16 Current Visit: No Status: Acute Plan: Continue as above. Repeat urine cultures so far negative Qualifiers: Urinary tract infection type: site unspecified (12) Pulmonary edema Current Visit: Yes Status: Acute Plan: This has improved. Will recheck chest x-ray again today. Will continue with Lasix. Will wean off oxygen. Qualifiers: Chronicity: acute Qualified Code(s): J81.0 - Acute pulmonary edema (13) Shortness of breath Current Visit: Yes Status: Acute Plan: Likely secondary to pulmonary edema. Will continue with above plan of care. (14) CHF (congestive heart failure) Onset Date: 01/23/16 Current Visit: No Status: Acute Plan: Suspect diastolic dysfunction. This has improved. Will continue with Lasix. Qualifiers: Heart failure type: diastolic Heart failure chronicity: acute on chronic Qualified Code(s): I50.33 - Acute on chronic diastolic (congestive) heart failure (15) Vaginitis Current Visit: Yes Status: Acute Plan: Will provide antifungal medication. Qualifiers: Chronicity: acute Qualified Code(s): N76.0 - Acute vaginitis (16) Dermatitis Current Visit: No Status: Acute Plan: Will provide medication Discharge Plan: Home Plan to discharge in: 48 Hours Time Spent Managing Pts Care (In Minutes): 55
[2018-01-11] MEDS: SOMATROPIN SQ SCH (11:05)
[2018-01-11] MEDS: POTASSIUM CL 40 MEQ in NA CHLORIDE 0.9% 500 ML IV SCH ×2 (13:11→17:13)
--- NOTE | 2018-01-11 13:52 | PN ---
Date of Progress Note: 01/11/2018 Subjective: The patient doing better. No shortness of breath. Physical Examination: Vital Signs: Blood pressure 157/84, earlier was elevated as 190/90, pulse of 72, afebrile. The aracelis ent had good urine output, on the diuresis, making 4500. Chest: Clear to auscultation. Heart: S1, S2. Regular. Abdomen: Soft, nontender. Extremities: Trace edema. Laboratory Data: WBC 3.5, H and H 10.2/31.2, platelet of 88. Sodium 144, potassium 3, bicarb 26, BU N 23, creatinine 0.7, calcium 8.3, phosphorus 2.8, magnesium 1.8, albumin 2.6, corrected calcium is 9 .5. Medications: Current medications the patient on its include: 1.Ceftriaxone. 2.Coumadin. 3.Norvasc 10. 4.Atorvastatin. 5.Carvedilol had been increased to 12.5. 6.Hydralazine p.r.n. 7.Gabapentin. 8.Lasix switched to 40 daily. 9.Pepcid. 10.Zofran. 11.Levothyroxine. Assessment And Plan: 1.Acute kidney injury secondary to toxic acute tubular necrosis, recover, resolved, still on the wet side. I agree with changing Lasix. 2.Hypokalemia, hypomagnesemia. We will supplement. 3.Urinary tract infection Escherichia coli. I am going to start the patient on Macrobid. EYAL Voice ID: [id number] Report ID: [id number]
[2018-01-11] MEDS ORDERED: NITROFURAN MACRO 100 MG CAP PO SCH (21:00)
[2018-01-11] MEDS: MICONAZOLE 7 APPL/48 GM TUBE VAG SCH (21:00)
[2018-01-11] MEDS: ATORVASTATIN 10 MG TAB PO SCH (21:12)
[2018-01-11] MEDS: HYDROCORTISONE 10 MG TAB PO SCH (21:13)
[2018-01-12] MEDS: HYDRALAZINE HCL 20 MG/ML VIAL IV PRN ×2 (04:31→08:54)
[2018-01-12 05:09] LABS: Absolute Lymphocytes (CBC) 0.7 K/uL (0.7-4.9); Absolute Monocytes 0.2 K/uL (0.1-1.3); Absolute Neutrophil 2.1 K/uL (1.8-8.0); Basophils % 0.3 % (0-1.3); Eosinophils % 0.9 % (0-4.4); Hematocrit 30.1 % (36.0-45.0); Lymphocytes % 21.9 % (15.3-44.8); MCV 96.2 fL (80-100); MPV 10.2 fL (7.6-11.3); Monocytes % 6.5 % (3.3-12.3); RBC Red Blood Cell Count 3.13 M/uL (3.86-4.86)
[2018-01-12 05:18] LABS: Protime INR 3.12
[2018-01-12 06:01] LABS: Albumin 2.7 g/dL (3.2-5.5); Phosphorus 2.1 mg/dL (2.5-4.3); Potassium 3.6 mEq/L (3.6-5.0)
[2018-01-12] MEDS ORDERED: POTASSIUM 25 MEQ EFFERV TAB PO ONE (06:20)
[2018-01-12] MEDS ORDERED: NA CHLORIDE 0.9% 0 ML ONE (07:13)
[2018-01-12] MEDS: LEVOTHYROXINE SOD 0.125 MG TAB PO SCH (07:16)
[2018-01-12] MEDS: LIOTHYRONINE SOD 5 MCG TAB PO SCH (07:16)
[2018-01-12] MEDS: INSULIN -REGULAR HUMAN 50 UNIT/0.5 ML ML SQ SCH (07:30)
--- NOTE | 2018-01-12 08:42 | P.DS ---
Admission Date: 01/07/18 Discharge Date: 01/12/18 Primary Care Provider: Dr. Iraheta;Card-Dr. Belcher;Endo-Dr. Mcgregor;GI-Dr. Bush Disposition: DC HOME/HOME HEALTH CARE Discharge Condition: GOOD Reason for Admission: venous stasis ulcer right leg Consultations: Infectious Disease-Dr. Martin Nephrology-Dr. Gillis Surgery-Dr. Rushing - Problems (1) Sepsis Onset Date: 01/09/18 Current Visit: Yes Status: Acute Qualifiers: Sepsis type: Escherichia coli Qualified Code(s): A41.51 - Sepsis due to Escherichia coli [E. coli] (2) Bacteremia due to Gram-negative bacteria Current Visit: Yes Status: Acute (3) Adrenal insufficiency Onset Date: 12/06/17 Current Visit: No Status: Chronic (4) Chronic use of steroids Onset Date: 12/06/17 Current Visit: No Status: Chronic (5) Diabetes mellitus type II, non insulin dependent Onset Date: 01/20/16 Current Visit: No Status: Chronic (6) Hypothyroidism Onset Date: 01/20/16 Current Visit: No Status: Chronic Qualifiers: Hypothyroidism type: unspecified Qualified Code(s): E03.9 - Hypothyroidism , unspecified (7) Hyperlipidemia Onset Date: 01/20/16 Current Visit: No Status: Chronic Qualifiers: Hyperlipidemia type: unspecified Qualified Code(s): E78.5 - Hyperlipidemia , unspecified (8) Hypertension Onset Date: 01/20/16 Current Visit: No Status: Chronic Qualifiers: Hypertension type: essential hypertension Qualified Code(s): I10 - Essential (primary) hypertension (9) Chronic anticoagulation Onset Date: 01/20/16 Current Visit: No Status: Chronic (10) Atrial fibrillation Onset Date: 12/30/16 Current Visit: No Status: Chronic Qualifiers: Atrial fibrillation type: chronic Qualified Code(s): I48.2 - Chronic atrial fibrillation (11) UTI (urinary tract infection) Onset Date: 01/20/16 Current Visit: No Status: Acute Qualifiers: Urinary tract infection type: site unspecified (12) Pulmonary edema Current Visit: Yes Status: Acute Qualifiers: Chronicity: acute Qualified Code(s): J81.0 - Acute pulmonary edema (13) Shortness of breath Current Visit: Yes Status: Acute (14) CHF (congestive heart failure) Onset Date: 01/23/16 Current Visit: No Status: Acute Qualifiers: Heart failure type: diastolic Heart failure chronicity: acute on chronic Qualified Code(s): I50.33 - Acute on chronic diastolic (congestive) heart failure (15) Vaginitis Current Visit: Yes Status: Acute Qualifiers: Chronicity: acute Qualified Code(s): N76.0 - Acute vaginitis (16) Dermatitis Current Visit: No Status: Acute Brief History of Present Illness: 77-year-old female present emergency room with sepsis. Initially it was thought that she had cellulitis to the lower extremity. Patient found to have UTI with hypotension. Patient given IV fluids and admitted for treatment. IV antibiotic therapy was initiated. Hospital Course: Patient presented with sepsis with noted UTI. There was some suspicion the patient may have underlying cellulitis. This was evaluated by surgery. No cellulitis was identified. Patient has chronic lymphedema. Patient also has a chronic wound to the right lower extremity. This remained stable. Patient was found to have UTI with positive blood cultures. Blood and urine cultures were positive for E coli. Patient was treated with IV antibiotic therapy. Patient seen by infectious disease. Patient did well in the course of her stay. Patient required doses of steroids due to her adrenal insufficiency. Patient also had some shortness of breath related to diastolic CHF. Patient was started on IV Lasix. This improved. At discharge patient without any significant pain, shortness of breath or chest pain. Edema to the lower extremities improved. surgical services tech has help to arrange for home health and outpatient IV antibiotic therapy as recommended by infectious disease. At discharge patient has PICC line in place. Patient will continue with Rocephin 1 g IV daily for 10 more days. Patient will need a follow up with her PCP at that time to remove PICC line if blood cultures and urine cultures are negative. Home health will arrange for outpatient antibiotic therapy at home. Please note at discharge repeat urine and blood cultures have been negative. Patient has hypertension. Patient initially had low blood pressures. This stabilized. Medications had to be adjusted. Losartan has been discontinued. Norvasc and carvedilol have been adjusted. At discharge she will continue with Norvasc 10 mg 1 pill once daily and carvedilol 25 mg 1 pill twice daily. Recommendation is to maintain blood pressures less 150/80. Further adjustment can be done by her PCP or cardiology. Losartan may need to be added in the future if blood pressures remain above 160 systolic. Patient has a history of atrial fibrillation on chronic anti coagulation therapy. This remained stable during her stay. She will continue with Coumadin 3 mg daily. Recommendation is to monitor INR 3 times a week while on antibiotic therapy. Recommendation to hold Coumadin if INR above 3.0. Further adjustment can be done by her PCP. Patient has adrenal insufficiency and takes chronic steroids. Patient required IV steroid during her treatment due to sepsis. Patient will continue with Cortef 40 mg 1 pill twice daily and Omnitrope daily. Further adjustment can be done by her leave coordinator. Recommendation is to follow up with Endocrinology in 1-2 weeks to follow up this hospitalization. Patient has diabetes. This remained stable during her stay. Patient receiving sliding scale. Patient will continue with glipizide and Tradjenta. Recommendation is to maintain blood sugars less than 140 fasting and less than 200 after meals. Further adjustment can be done by her PCP or endocrinology. Recommendations for the patient follow up with Endocrinology as directed. Patient has hyperlipidemia. She will continue with Lipitor and fenofibrate. Patient has hypothyroidism. This remained stable during her stay. She will continue with Levoxyl and Cytomel daily. Further adjustment can be done by endocrinology. Patient has GERD. She will continue with Dexilant daily. Patient has diabetic neuropathy. Patient will continue with gabapentin 600 mg 1 pill 3 times a day. Patient has underlying diastolic CHF. Patient did require Lasix during her stay. This improved. At discharge she did not require any oxygen. She denied any significant chest pain or shortness of breath. She will continue with a 1500 cc per day fluid restriction. At discharge Lasix 20 mg 1 pill daily has been added. Recommendation is to recheck lab-BMP in 1 week to monitor her progress. Patient is to monitor her weight daily. If her weight increases by more than 5 lb she is to contact her PCP for further recommendation. Patient has chronic renal disease seen by nephrology. Patient had acute on chronic renal disease was consulted during her stay. Renal function improved at discharge. Recommendation is for the patient follow up with Nephrology in 2- 4 weeks to monitor progress. Patient has chronic wound to the right lower extremity. This was evaluated by surgery. No cellulitis was identified. Patient was treated for her chronic wound. Patient is to follow up with wound care/surgery. Patient to continue with wound care instructions. Patient has dermatitis/vaginitis. Patient continue with creams as directed. Patient has lymphedema to the lower extremities. She is to continue with her fluid restriction as above. Patient to monitor this closely. Further adjustment can be done by her PCP. Vital Signs/Physical Exam: Temp Pulse Resp BP Pulse Ox 97.4 F 73 18 168/76 H 97 01/12/18 04:00 01/12/18 04:00 01/12/18 04:00 01/12/18 04:00 01/12/18 04:00 General: Alert, In no apparent distress, Oriented x3, Cooperative HEENT: Atraumatic, Mucous membr. moist/pink Neck: Supple Respiratory: Clear to auscultation bilaterally, Normal air movement Cardiovascular: Normal pulses, Regular rate/rhythm Gastrointestinal: Normal bowel sounds, Soft and benign, Non-distended, No tenderness, No masses, No rebound, No guarding Musculoskeletal: No erythema, No tenderness, No warmth Integumentary: No tenderness/swelling, No erythema, No warmth, No cyanosis, Other (Chronic wound to the right lower extremity. Lymphedema noted with nonpitting edema.) Neurological: Normal speech, Normal strength at 5/5 x4 extr, Normal tone, Normal affect Laboratory Data at Discharge: WBC 3.0 K/uL (4.3-10.9) L D 01/12/18 04:35 Hgb 10.0 g/dL (12.0-15.0) L 01/12/18 04:35 Hct 30.1 % (36.0-45.0) L 01/12/18 04:35 Plt Count 101 K/uL (152-406) L 01/12/18 04:35 PT 37.3 SECONDS (9.5-12.5) H 01/12/18 04:35 INR 3.12 01/12/18 04:35 Sodium 146 mEq/L (135-145) H 01/12/18 04:35 Potassium 3.6 mEq/L (3.6-5.0) 01/12/18 04:35 BUN 19 mg/dL (6-20) 01/12/18 04:35 Creatinine 0.67 mg/dL (0.44-1.00) 01/12/18 04:35 Glucose 203 mg/dL (65-120) H 01/12/18 04:35 Phosphorus 2.1 mg/dL (2.5-4.3) L 01/12/18 04:35 Magnesium 2.0 mg/dL (1.8-2.5) 01/12/18 04:35 Total Bilirubin 0.8 mg/dL (0.3-1.2) 01/07/18 04:15 AST 18 IU/L (10-42) 01/07/18 04:15 ALT 12 IU/L (10-60) 01/07/18 04:15 Alkaline Phosphatase 44 IU/L (42-121) 01/07/18 04:15 B-Natriuretic Peptide 154 pg/ml (<=100) H 01/08/18 05:00 Lipase 28 U/L (22-51) 01/07/18 04:15 Home Medications: Atorvastatin Calcium 10 mg PO BEDTIME 01/07/18 Cholecalciferol (Vitamin D3) [Vitamin D3] 1 tab PO SEECOM 01/07/18 Dexlansoprazole [Dexilant] 2 cap PO DAILY 01/07/18 Fenofibrate [Tricor*] 1 tab PO DAILY 01/07/18 Gabapentin 1 tab PO TID 01/07/18 Glipizide [Glipizide Xl] 2.5 mg PO DAILY 01/07/18 Hydrocortisone [Cortef*] 4 tab PO BID 01/07/18 Levothyroxine Sodium [Tirosint] 12.5 mcg PO DAILY 01/07/18 Linagliptin [Tradjenta] 5 mg PO DAILY 01/07/18 Liothyronine Sodium [Cytomel] 1 tab PO DAILY 01/07/18 Lipase/Protease/Amylase [Creon Dr 12,000 Units Capsule] 1 cap PO TID 01/07/18 Somatropin [Omnitrope] 0.3 ml SQ DAILY 01/07/18 Warfarin Sodium 3 mg PO DAILY 01/07/18 Lorazepam [Ativan*] 0.5 mg PO DAILY 01/08/18 Amlodipine [Norvasc*] 10 mg PO DAILY #30 tab 01/12/18 Carvedilol [Coreg] 25 mg PO BID #60 tab 01/12/18 Furosemide [Lasix*] 20 mg PO DAILY #30 tab 01/12/18 Hydrocortisone Cream [Hydrocortisone 1% Cream*] 1 appl TOP TID PRN #1 tube 01/12 Miconazole [Monistat-7 2% Vaginal Cream*] 1 appl VAG BEDTIME #7 gm 01/12/18 New Medications: Amlodipine [Norvasc*] 10 mg PO DAILY #30 tab Carvedilol [Coreg] 25 mg PO BID #60 tab Furosemide [Lasix*] 20 mg PO DAILY #30 tab Hydrocortisone Cream [Hydrocortisone 1% Cream*] 1 appl TOP TID PRN #1 tube PRN Reason: Itching Miconazole [Monistat-7 2% Vaginal Cream*] 1 appl VAG BEDTIME #7 gm Patient Discharge Instructions: 1. Patient will need to follow up with her PCP in 1 week to follow up this hospitalization. 2. Patient presented with sepsis with noted UTI. Blood in urine cultures were positive for E coli. Patient treated with IV antibiotic therapy. Patient seen by infectious disease. At discharge patient has PICC line in place. Patient will continue with Rocephin 1 g IV daily for 10 more days. Patient will need a follow up with her PCP at that time to remove PICC line if blood cultures and urine cultures are negative. Home health will arrange for outpatient antibiotic therapy at home. 3. Patient has hypertension. Medications had to be adjusted. Losartan has been discontinued. Norvasc and carvedilol have been adjusted. At discharge she will continue with Norvasc 10 mg 1 pill once daily and carvedilol 25 mg 1 pill twice daily. Recommendation is to maintain blood pressures less 150/80. Further adjustment can be done by her PCP or cardiology. Losartan may need to be added in the future if blood pressures remain above 160 systolic. 4. Patient has a history of atrial fibrillation on chronic anti coagulation therapy. She will continue with Coumadin 3 mg daily. Recommendation is to monitor INR 3 times a week while on antibiotic therapy. Recommendation to hold Coumadin if INR above 3.0. Further adjustment can be done by her PCP. 5. Patient has adrenal insufficiency and takes chronic steroids. Patient will continue with Cortef 40 mg 1 pill twice daily and Omnitrope daily. Further adjustment can be done by her leave coordinator. Recommendation is to follow up with Endocrinology in 1-2 weeks to follow up this hospitalization. 6. Patient has diabetes. Patient will continue with glipizide and Tradjenta. Recommendation is to maintain blood sugars less than 140 fasting and less than 200 after meals. Further adjustment can be done by her PCP or endocrinology. Recommendations for the patient follow up with Endocrinology as directed. 7. Patient has hyperlipidemia. She will continue with Lipitor and fenofibrate. 8. Patient has hypothyroidism. She will continue with Levoxyl and Cytomel daily. Further adjustment can be done by endocrinology. 9. Patient has GERD. She will continue with Dexilant daily. 10. Patient has diabetic neuropathy. Patient will continue with gabapentin 600 mg 1 pill 3 times a day. 11. Patient has underlying diastolic CHF. She will continue with a 1500 cc per day fluid restriction. At discharge Lasix 20 mg 1 pill daily has been added. Recommendation is to recheck lab-BMP in 1 week to monitor her progress. Patient is to monitor her weight daily. If her weight increases by more than 5 lb she is to contact her PCP for further recommendation. 12. Patient has chronic renal disease seen by nephrology. Recommendation is for the patient follow up with Nephrology in 2-4 weeks to monitor progress. 13. Patient has chronic wound to the right lower extremity. Patient is to follow up with wound care/surgery. Patient to continue with wound care instructions. 14. Patient has dermatitis/vaginitis. Patient continue with creams as directed. 15. Patient has lymphedema to the lower extremities. She is to continue with her fluid restriction as above. Patient to monitor this closely. Further adjustment can be done by her PCP. Diet: ADA Activity: Fall precautions Time spent managing pt's care (in minutes): 55
[2018-01-12] MEDS: GABAPENTIN 300 MG CAP PO SCH (08:46)
[2018-01-12] MEDS: FAMOTIDINE 20 MG TAB PO SCH (08:46)
[2018-01-12] MEDS: LIPASE/PROTEASE/AMYLASE CAP PO SCH (08:46)
[2018-01-12] MEDS: CARVEDILOL 12.5 MG TAB PO SCH (08:46)
[2018-01-12] MEDS: AMLODIPINE 10 MG TAB PO SCH (08:47)
[2018-01-12] MEDS: FENOFIBRATE 48 MG TAB PO SCH (08:47)
[2018-01-12] MEDS: HYDROCORTISONE 10 MG TAB PO SCH (08:54)
[2018-01-12] MEDS: PANTOPRAZOLE 40MG TABLET PO SCH (08:54)
[2018-01-12] MEDS: SOMATROPIN SQ SCH (09:00)
[2018-01-12] MEDS ORDERED: FUROSEMIDE 40 MG TABLET PO SCH (09:00)
[2018-01-12] MEDS ORDERED: CEFTRIAXONE/SWI 1gm 1 GM/10 ML SYR IV SCH (09:00)
[2018-01-12] MEDS: COLLAGENASE 30 GM OINTMENT TOP SCH (09:00)
[2018-01-12] MEDS ORDERED: FUROSEMIDE 20 MG TABLET PO SCH (09:00)
[2018-01-12] MEDS ORDERED: FUROSEMIDE 40 MG/4 ML VIAL IV ONE (11:29)
[2018-01-12 11:49] VITALS: O2SAT 98
[2018-01-12 15:20] VITALS: BP 124/75; TEMP 97.8
--- NOTE | 2018-01-12 16:28 | PN ---
Date of Progress Note: 01/12/2018 Subjective: The patient feeling better. Still has leg swelling. No nausea. No vomiting. No short ness of breath. Physical Examination: Vital Signs: When I saw the patient, blood pressure 131/61, pulse of 97. The patient had good urine output of 4500, the patient negative of 3 L. Chest: Clear to auscultation. Heart: S1, S2. Regular rhythm. Abdomen: Soft, nontender. Extremities: Dressing on both leg, edema +1. Current Medications: The patient on its include: 1.Ceftriaxone. 2.Coumadin. 3.Amlodipine 10. 4.Atorvastatin. 5.Carvedilol 12.5. 6.Hydralazine p.r.n. 7.Tylenol. 8.Gabapentin. 9.Lasix 20 daily. 10.Pepcid. 11.Levothyroxine. 12.Insulin. Assessment And Plan: 1.Acute kidney injury secondary to toxic acute tubular necrosis, poor perfusion acute tubular necros is, recovered, resolved. 2.Hypertension, controlled, optimal. Continue current medication. 3.Edema. I am going to give the patient extra dose of Lasix of 40 today and we will go ahead and in crease her Lasix oral to 40 daily and we will follow up the patient. 4.Cellulitis. Continue current treatment. The patient cleared from the renal standpoint for williams mclaughlin planning. EYAL Voice ID: [id number] Report ID: [id number]
[2018-01-13] MEDS ORDERED: FUROSEMIDE 40 MG TABLET PO SCH (09:00)
== END 2018-01-12 12:05 | disposition home health service (06) | DRG 871 ==
LOC: ER 03:58 → ERHOLD 07:03 → 3RD-ICU 11:22 → 2ND 01-09 16:12
PROVIDERS: ADMIT Internal Medicine; ATTEND Family Medicine
PROC: 0T9B70Z Drainage of Bladder with Drainage Device, Via Natural or Artificial Opening (ICD-10-PCS; 2018-01-07)
PROC: 02HV33Z Insertion of Infusion Device into Superior Vena Cava, Percutaneous Approach (ICD-10-PCS; principal; 2018-01-10)
DX: A41.51 Sepsis due to Escherichia coli [E. coli] (principal); N17.0 Acute kidney failure with tubular necrosis; N39.0 Urinary tract infection, site not specified; E23.0 Hypopituitarism; E27.40 Unspecified adrenocortical insufficiency; E11.622 Type 2 diabetes mellitus with other skin ulcer; I48.2 Chronic atrial fibrillation; E83.42 Hypomagnesemia; N76.0 Acute vaginitis; E87.6 Hypokalemia; L30.9 Dermatitis, unspecified; I89.0 Lymphedema, not elsewhere classified; I83.019 Varicose veins of right lower extremity with ulcer of unspecified site; D69.6 Thrombocytopenia, unspecified; E78.5 Hyperlipidemia, unspecified; E03.9 Hypothyroidism, unspecified; I10 Essential (primary) hypertension; F41.9 Anxiety disorder, unspecified; K21.9 Gastro-esophageal reflux disease without esophagitis; Z79.52 Long term (current) use of systemic steroids; Z79.01 Long term (current) use of anticoagulants; Z86.73 Personal history of transient ischemic attack (TIA), and cerebral infarction without residual deficits
CPT/HCPCS: 36415; 51702; 71045; 71250; 74176; 76770; 80048; 80069; 80076; 81003; 81015; 82570; 82805; 82962; 83605; 83690; 83735; 83880; 84145; 84156; 84484; 85025; 85610; 87040; 87070; 87077; 87086; 87088; 87186; 87205; 93005; 93306; 97163; 99285; J0360; J0692; J0696; J1720; J1940; J2405; J2543; J2780; J3370; J3475; J3590; J7030; J7060

== ENCOUNTER 2018-01-13 12:37 | Emergency (ER) | payer OTHER ==
[2018-01-13] MEDS ORDERED: NA CHLORIDE 0.9% 2,000 ML ONE (13:10)
[2018-01-13 13:22] LABS: Absolute Lymphocytes (CBC) 0.7 K/uL (0.7-4.9); Absolute Monocytes 0.2 K/uL (0.1-1.3); Absolute Neutrophil 4.2 K/uL (1.8-8.0); Basophils % 0.3 % (0-1.3); Eosinophils % 0.2 % (0-4.4); Hematocrit 33.6 % (36.0-45.0); Lymphocytes % 14.5 % (15.3-44.8); MCH 31.6 pg (27.0-35.0); MCV 96.6 fL (80-100); MPV 10.5 fL (7.6-11.3); Monocytes % 3.2 % (3.3-12.3); RBC Red Blood Cell Count 3.47 M/uL (3.86-4.86)
[2018-01-13 13:46] LABS: Albumin 2.9 g/dL (3.2-5.5); Bilirubin Direct 0.1 mg/dL (0-0.2); Bilirubin Total 0.6 mg/dL (0.3-1.2); C-Reactive Protein 15.9 mg/L (<10.0); CKMB Creatine Kinase MB 1.5 ng/ml (0.3-4.0); Magnesium 1.7 mg/dL (1.8-2.5); Protein, Total 5.7 g/dL (6.0-8.3)
[2018-01-13 14:07] LABS: Protime INR 2.45
[2018-01-13] MEDS ORDERED: FENTANYL CITR 100 MCG/2 ML ONE (14:18)
[2018-01-13] MEDS ORDERED: MAGNESIUM SULFATE 1 gm IVPB 1 GM/100 ML BAG IV ONE (14:19)
[2018-01-13] MEDS ORDERED: ONDANSETRON 4 MG/2 ML VIAL ONE (14:19)
[2018-01-13] MEDS ORDERED: METOPROLOL TARTRATE 5 MG/5 ML INJ IV ONE ×3 (14:19→21:53)
[2018-01-13] MEDS ORDERED: KCL 20 MEQ/100 mL IVPB 20 MEQ/100 ML BAG IV ONE (15:08)
--- NOTE | 2018-01-13 15:42 | RAD REPORT ---
EXAM DESCRIPTION: CT - Abdomen Pelvis W Contrast - 01/13/2018 3:24 pm CLINICAL HISTORY: Abdominal pain with nausea. And vomiting COMPARISON: February 2017 TECHNIQUE: Computed axial tomography of the abdomen pelvis was obtained. 100 cc Isovue-300 was admin istered intravenously. Oral contrast was not requested which limits evaluation of bowel. All CT scans are performed using dose optimization technique as appropriate and may include automated exposure control or mA/KV adjustment according to patient size. FINDINGS: Small hepatic cysts are present. Spleen, pancreas, adrenal and kidneys appear unremarkable. Diverticula stem from the colon without evidence of diverticulitis. 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 The gallbladder wall appears borderline thickened IMPRESSION: The gallbladder wall appears borderline thickened. Further evaluation with ultrasound is recommended Spondylosis involving lumbar spine resulting in severe central spinal stenosis
--- NOTE | 2018-01-13 15:48 | EKG ---
Test Date: 2018-01-13 Test Time: 12:58:54 Perishable Freight Inspector: ARACELY MEASUREMENT RESULTS: Intervals: Rate: 150 LA: QRSD: 78 QT: 306 QTc: 483 [place]: P: LA: QRS: -3 T: 67 INTERPRETIVE STATEMENTS: Atrial fibrillation with rapid ventricular response Nonspecific ST and T wave abnormality Abnormal ECG Compared to ECG 01/07/2018 06:14:35 ST (T wave) deviation now present Sinus rhythm no longer present Atrial premature complex(es) no longer present T-wave abnormality no longer present Electronically Signed On 01-13-18 15:48:21 CDT by Geovany Metz
--- NOTE | 2018-01-13 15:49 | RAD REPORT ---
EXAM DESCRIPTION: [place] Single View01/13/2018 1:16 pm CLINICAL HISTORY: Chest pain COMPARISON: January 11, 2018 FINDINGS: The lungs appear clear of acute infiltrate. The heart is normal size. Minimal bilateral p leural effusions are present. A PICC line has tip in the superior vena cava IMPRESSION: Minimal bilateral pleural effusions
[2018-01-13] MEDS ORDERED: HYDROCORTISONE SUC 100 MG INJ ONE (16:01)
[2018-01-13] MEDS ORDERED: PIPER/TAZO/NS 3.375gm 3.375 GM/100 ML BAG ONE (16:02)
--- NOTE | 2018-01-13 16:02 | ER ---
Nurse's Notes [facility] Name: Emelia Payan Age: 77 yrs Sex: Female : 1940 Arrival Date: 01/13/2018 Time: 12:44 Bed 20 Private MD: Diagnosis: Sepsis;Dehydration;Acute pancreatitis;Cholecystitis, unspecified;Hypokalemia;Hypomagnesemia;Atrial fibrillation and flutter-with RVR Presentation: 01/13 12:44 Presenting complaint: EMS states: called out for chest pain that radiates to the left em side, denies N/V that started around 10AM, was discharged from hospital on Tuesday for infection in blood, sent home for IV abx. Transition of care: patient was not received from another setting of care. Onset of symptoms was January 13, 2018. 12:44 Method Of Arrival: EMS: [facility] em 12:46 Acuity: EDIS 2 iw 13:03 Initial Sepsis Screen: Does the patient meet any 2 criteria? HR > 90 bpm. Does the iw patient have a suspected source of infection?. Care prior to arrival: IV initiated. 20 GA, in the left antecubital area. Historical: - Allergies: 12:58 Cipro; iw 12:58 Xarelto; iw - Home Meds: 13:16 amlodipine 10 mg oral tab once daily [Active]; carvedilol 25 mg Oral tab three times a iw day [Active]; Rocephin 1 gram daily [Active]; Lasix 20 mg Oral tab once daily [Active]; hydrocortisone 0.5 % Topical crea 3 times per day [Active]; Monistat-Derm Topical nightly [Active]; atorvastatin 10 mg Oral tab 1 tab once daily [Active]; cholecalciferol (vitamin D3) 5,000 unit oral cap daily [Active]; Dexilant 60 mg Oral CpDB 1 cap once daily [Active]; fenofibrate oral 48 mg oral once daily [Active]; gabapentin 600 mg Oral tab 1 tab 3 times per day [Active]; glipizide 2.5 mg Oral tr24 once daily [Active]; hydrocortisone 40 mg Oral tab 4 tabs 2 times per day [Active]; levothyroxine 125 mcg tab 1 tab once daily [Active]; Tradjenta 5 mg Oral tab 1 tab once daily [Active]; liothyronine 5 mcg Oral tab 1 tab once daily [Active]; Creon 12,000-38,000 -60,000 unit Oral cpDR 3 times per day [Active]; Ativan 0.5 mg Oral tab [Active]; somatropin subcutaneous subcutaneous once daily [Active]; warfarin 2.5 mg oral tab once daily [Active]; - PMHx: 12:58 adrenal insuficiency; CHF; Diabetes - IDDM; DVT; Hyperlipidemia; Hypertension; iw Hypothyroidism; - Immunization history:: Adult Immunizations up to date. - Social history:: Smoking status: Patient/guardian denies using tobacco. Screenin:48 Abuse screen: Denies threats or abuse. Nutritional screening: No deficits noted. em Tuberculosis screening: No symptoms or risk factors identified. Fall Risk None identified. Assessment: 12:55 General: Appears in no apparent distress. uncomfortable, obese, Behavior is anxious. em Pain: Pain currently is 9 out of 10 on a pain scale. Pain began 10 AM. Neuro: Level of Consciousness is awake, alert, obeys commands, Oriented to person, place, time, situation. Cardiovascular: Reports chest pain, Denies diaphoresis, nausea, vomiting. Respiratory: Airway is patent Respiratory effort is even, unlabored, Respiratory pattern is regular, symmetrical. GI: Abdomen is round obese. : No signs and/or symptoms were reported regarding the genitourinary system. EENT: No signs and/or symptoms were reported regarding the EENT system. Derm: Skin is intact, Skin is pink, warm \T\ dry. Musculoskeletal: Capillary refill < 3 seconds, Range of motion: intact in all extremities. 13:00 Reassessment: Patient appears in no apparent distress at this time. No changes from iw previously documented assessment. I agree with above assessment by Prabhu Arce LVN. 13:30 Reassessment: Patient appears in no apparent distress at this time. Patient is alert, em oriented x 3, equal unlabored respirations, skin warm/dry/pink. 14:30 Reassessment: Patient appears in no apparent distress at this time. Patient is alert, em oriented x 3, equal unlabored respirations, skin warm/dry/pink. Patient states symptoms have improved. 15:00 Reassessment: Dr. Cox at bedside discussing POC with pt and family. em 15:20 Reassessment: Patient appears in no apparent distress at this time. Patient and/or em family updated on plan of care and expected duration. Pain level reassessed. Patient is alert, oriented x 3, equal unlabored respirations, skin warm/dry/pink. family at bedside, pt reports feeling better rates pain /. 15:54 Reassessment: Patient appears in no apparent distress at this time. Patient and/or em family updated on plan of care and expected duration. Pain level reassessed. Patient is alert, oriented x 3, equal unlabored respirations, skin warm/dry/pink. returned from CT. 16:41 Reassessment: Patient appears in no apparent distress at this time. Patient and/or em family updated on plan of care and expected duration. Pain level reassessed. Patient is alert, oriented x 3, equal unlabored respirations, skin warm/dry/pink. Patient states feeling better. Patient states symptoms have improved. 17:45 Reassessment: Patient appears in no apparent distress at this time. Patient and/or em family updated on plan of care and expected duration. Pain level reassessed. Patient is alert, oriented x 3, equal unlabored respirations, skin warm/dry/pink. resting comfortably with eyes closed Patient states feeling better. 18:30 Reassessment: Patient appears in no apparent distress at this time. Patient and/or em family updated on plan of care and expected duration. Pain level reassessed. Patient is alert, oriented x 3, equal unlabored respirations, skin warm/dry/pink. 19:46 Reassessment: No changes from previously documented assessment. Patient and/or family mb3 updated on plan of care and expected duration. Pain level reassessed. Patient is alert, oriented x 3, equal unlabored respirations, skin warm/dry/pink. 21:30 Reassessment: Pt complaining of panic attack and is requesting Lorazepam that she takes at home. Discussed with Dr and pt to get medication. 21:54 Reassessment: Pt's heart rate ranging from 120-146. EMS here to take pt for transfer to [facility]. They are concerned about her rate. Discussed with DR and pt to get Metoprolol 5 mg ivp x 1 now. Nurse and EMS notified and pt to get medication. 22:24 Reassessment: Report called to Nitza Adams RN at 2055, SBAR used, all questions mb3 answered. Vital Signs: 12:47 BP 104 / 46; Pulse 150; Resp 22 S; iw 12:47 BP 104 / 49; Pulse 154; Resp 16; Temp 100.1(O); Pulse Ox 99% ; Pain 7/10; em 13:07 Weight 91.17 kg; em 13:45 BP 113 / 54; Pulse 152; Resp 10; Pulse Ox 98% on R/A; mh5 14:50 BP 117 / 78; Pulse 106; Resp 16; Pulse Ox 95% on R/A; mh5 15:45 BP 116 / 63; Pulse 126; Resp 12; Pulse Ox 97% on R/A; Pain 2/10; em 16:29 BP 109 / 81; Pulse 132; Resp 25; Temp 98.0(O); Pulse Ox 96% on R/A; mh5 16:56 BP 113 / 80; Pulse 139; Resp 18; Pulse Ox 96% on R/A; Pain 2/10; em 17:13 BP 114 / 62; Pulse 128; Resp 14; Pulse Ox 96% on R/A; em 18:15 BP 118 / 75; Pulse 120; Resp 14; Pulse Ox 96% on R/A; em 19:45 BP 143 / 71; Pulse 122; Resp 20; Pulse Ox 99% ; mb3 Vitals: 15:45 Cardiac Rhythm Assessment Atrial fibrillation W/rapid ventricular response. em 16:56 Cardiac Rhythm Assessment Atrial fibrillation W/rapid ventricular response. em 17:13 Cardiac Rhythm Assessment Atrial fibrillation W/rapid ventricular response. em 18:15 Cardiac Rhythm Assessment Atrial fibrillation W/rapid ventricular response. em ED Course: 12:44 Patient arrived in ED. em 12:46 Triage completed. iw 12:48 Patient has correct armband on for positive identification. Placed in gown. Bed in low em position. Call light in reach. Side rails up X2. Adult w/ patient. 12:50 Prabhu Arce LVN is Primary Nurse. em 12:50 Arm band placed on. em 12:57 Patrick Delgado PA is PHCP. jr8 12:57 Jose Elias Marquez MD is Attending Physician. jr8 12:58 EKG done, by lubrication technician. reviewed by Patrick FISHER. at1 13:13 X-ray completed. Portable x-ray completed in exam room. Patient tolerated procedure ml well. 13:14 XRAY Chest (1 view) In Process Unspecified. EDMS 13:16 Accessed PICC line. Clean \T\ dry. Dressing intact. Good blood return. Flushes easily. iw Maintain EMS IV. Dressing intact. Good blood return noted. Site clean \T\ dry. Gauge \T\ site: 20 LAC. 14:27 Radiology exam delayed due to Nurse said she is not ready. nj 14:54 Radiology exam delayed due to Dr. Cox with pt at this time. nj 15:[address] via stretcher. nj 15:24 CT Abd/Pelvis - W/Contrast In Process Unspecified. EDMS 15:24 CT completed. Patient tolerated procedure well. Patient moved back from CT. nj 15:47 Abdomen Exam Limited In Process Unspecified. EDMS 16:00 Raul Cox DO is Hospitalizing Provider. jr8 16:25 Taylor cath inserted, using sterile technique, 16 Fr., by or, balloon inflated, to mh5 gravity drainage. 16:54 Urine collected: straight cath specimen, cloudy. mh5 18:45 No provider procedures requiring assistance completed. em 19:24 Primary Nurse role handed off by Prabhu Arce LVN rg2 19:43 Lars Araujo, RN is Primary Nurse. mb3 22:22 Patient transferred, IV remains in place. mb3 Administered Medications: 13:17 Drug: NS 0.9% (30 ml/kg) 30 ml/kg Route: IV; Rate: bolus; Site: left antecubital; em 15:51 Follow up: IV Status: Order to discontinue infusion; IV Intake: 1000ml em 14:25 Drug: fentaNYL (PF) 50 mcg Route: IVP; Site: PICC; iw 15:52 Follow up: Response: No adverse reaction; Pain is decreased em 14:25 Drug: Zofran 4 mg Route: IVP; Site: PICC; iw 15:53 Follow up: Response: No adverse reaction em 14:32 Drug: Lopressor 5 mg Route: IVP; Site: PICC; iw 15:53 Follow up: Response: No adverse reaction em 14:43 Drug: Magnesium Sulfate 1 grams Route: IVPB; Infused Over: 1 hrs; Site: left em antecubital; 15:50 Follow up: IV Status: Completed infusion; IV Intake: 100ml em 15:50 Drug: Potassium Chloride 20 mEq Route: IV; Rate: calculated rate; Site: PICC; iw 18:45 Follow up: Response: No adverse reaction; IV Status: Completed infusion; IV Intake: em 100ml 16:00 Drug: NS 0.9% 1000 ml Route: IV; Rate: 75 ml/hr; Site: PICC; iw 16:10 Drug: Solu-CORTEF 100 mg Route: IVP; Site: left antecubital; iw 16:55 Follow up: Response: No adverse reaction em 16:31 Drug: Zosyn 3.375 grams Route: IVPB; Infused Over: 60 mins; Site: left antecubital; em 18:44 Follow up: IV Status: Completed infusion; IV Intake: 100ml em 17:02 Drug: Lopressor 5 mg Route: IVP; Site: left antecubital; iw 18:44 Follow up: Response: No adverse reaction em 21:40 Drug: LORazepam 0.5 mg Route: PO; mb3 21:58 Drug: Metoprolol 5 mg Route: IVP; Site: right upper arm; mb3 Intake: 15:50 IV: 100ml; Total: 100ml. em 15:51 IV: 1000ml; Total: 1100ml. em 18:44 IV: 100ml; Total: 1200ml. em 18:45 IV: 100ml; Total: 1300ml. em Outcome: 16:01 Decision to Hospitalize by Provider. jr8 18:01 ER care complete, transfer ordered by MD. jr8 22:23 Transferred by ground EMS to [facility], Transfer form completed. mb3 22:23 Transferred 22:23 Condition: stable 22:23 Instructed on the need for transfer. 22:25 Patient left the ED. mb3 Signatures: Dispatcher [employer] EDAshwin Villa2 Gege Lyle RN RN Prabhu Vieira, INNER TUBE INSERTER INNER TUBE INSERTER em Guerita Ray RN RN iw Lopez, Patrick Donis PA PA jr8 Mallory carter, assembly machine tender EKG Tat1 Kash Payan Maria 5 Lars Araujo RN RN mb3 Corrections: (The following items were deleted from the chart) 13:04 12:44 Care prior to arrival: None. em iw 16:31 16:29 BP 109 / 81; Pulse 132bpm; Resp 25bpm; Pulse Ox 96% RA; mh5 mh5
--- NOTE | 2018-01-13 16:02 | EDPHYS ---
Physician Documentation [facility] Name: Emelia Payan Age: 77 yrs Sex: Female : 1940 Arrival Date: 01/13/2018 Time: 12:44 Bed 20 Private MD: ED Physician Jose Elias Marquez HPI: 01/13 13:52 This 77 yrs old Female presents to ER via EMS with complaints of Chest Pain. jr8 13:52 Patient released from facility recently for UTI with bacteremia. Has been doing IV jr8 antibiotics at home. Today had sudden onset of chest pain with radiation down arm today. Severity of symptoms: At their worst the symptoms were moderate in the emergency department the symptoms are unchanged. The patient has not experienced similar symptoms in the past. The patient has not recently seen a physician. Historical: - Allergies: 12:58 Cipro; iw 12:58 Xarelto; iw - Home Meds: 13:16 amlodipine 10 mg oral tab once daily [Active]; carvedilol 25 mg Oral tab three times a iw day [Active]; Rocephin 1 gram daily [Active]; Lasix 20 mg Oral tab once daily [Active]; hydrocortisone 0.5 % Topical crea 3 times per day [Active]; Monistat-Derm Topical nightly [Active]; atorvastatin 10 mg Oral tab 1 tab once daily [Active]; cholecalciferol (vitamin D3) 5,000 unit oral cap daily [Active]; Dexilant 60 mg Oral CpDB 1 cap once daily [Active]; fenofibrate oral 48 mg oral once daily [Active]; gabapentin 600 mg Oral tab 1 tab 3 times per day [Active]; glipizide 2.5 mg Oral tr24 once daily [Active]; hydrocortisone 40 mg Oral tab 4 tabs 2 times per day [Active]; levothyroxine 125 mcg tab 1 tab once daily [Active]; Tradjenta 5 mg Oral tab 1 tab once daily [Active]; liothyronine 5 mcg Oral tab 1 tab once daily [Active]; Creon 12,000-38,000 -60,000 unit Oral cpDR 3 times per day [Active]; Ativan 0.5 mg Oral tab [Active]; somatropin subcutaneous subcutaneous once daily [Active]; warfarin 2.5 mg oral tab once daily [Active]; - PMHx: 12:58 adrenal insuficiency; CHF; Diabetes - IDDM; DVT; Hyperlipidemia; Hypertension; iw Hypothyroidism; - Immunization history:: Adult Immunizations up to date. - Social history:: Smoking status: Patient/guardian denies using tobacco. ROS: 13:52 Eyes: Negative for injury, pain, redness, and discharge, ENT: Negative for injury, jr8 pain, and discharge, Neck: Negative for injury, pain, and swelling, Respiratory: Negative for shortness of breath, cough, wheezing, and pleuritic chest pain, Abdomen/GI: Negative for abdominal pain, nausea, vomiting, diarrhea, and constipation, Back: Negative for injury and pain, MS/Extremity: Negative for injury and deformity, Skin: Negative for injury, rash, and discoloration, Neuro: Negative for headache, weakness, numbness, tingling, and seizure. 13:52 Cardiovascular: Positive for chest pain. Exam: 13:52 Eyes: Pupils equal round and reactive to light, extra-ocular motions intact. Lids and jr8 lashes normal. Conjunctiva and sclera are non-icteric and not injected. Cornea within normal limits. Periorbital areas with no swelling, redness, or edema. ENT: Nares patent. No nasal discharge, no septal abnormalities noted. Tympanic membranes are normal and external auditory canals are clear. Oropharynx with no redness, swelling, or masses, exudates, or evidence of obstruction, uvula midline. Mucous membranes moist. Neck: Trachea midline, no thyromegaly or masses palpated, and no cervical lymphadenopathy. Supple, full range of motion without nuchal rigidity, or vertebral point tenderness. No Meningismus. Respiratory: Lungs have equal breath sounds bilaterally, clear to auscultation and percussion. No rales, rhonchi or wheezes noted. No increased work of breathing, no retractions or nasal flaring. Back: No spinal tenderness. No costovertebral tenderness. Full range of motion. Skin: Warm, dry with normal turgor. Normal color with no rashes, no lesions, and no evidence of cellulitis. MS/ Extremity: Pulses equal, no cyanosis. Neurovascular intact. Full, normal range of motion. Neuro: Awake and alert, GCS 15, oriented to person, place, time, and situation. Cranial nerves II-XII grossly intact. Motor strength 5/5 in all extremities. Sensory grossly intact. Cerebellar exam normal. Normal gait. 13:52 Cardiovascular: Rate: tachycardic, Rhythm: irregularly irregular, Pulses: Pulses are 2+ in bilateral radial, brachial, femoral, popliteal, posterior tibial and and dorsalis pedis arteries.. Heart sounds: normal, normal S1and S2, no S3 or S4, no murmur, no rub, no gallop, Edema: is not appreciated. 13:52 Abdomen/GI: Inspection: obese Bowel sounds: active, all quadrants, Palpation: soft, in all quadrants, moderate abdominal tenderness, in the epigastric area, Indicators: McBurney's point is not tender, Ricks's sign is negative, Rovsing's sign is negative, Liver: no appreciated palpable abnormalities, tenderness, is not appreciated. Vital Signs: 12:47 BP 104 / 46; Pulse 150; Resp 22 S; iw 12:47 BP 104 / 49; Pulse 154; Resp 16; Temp 100.1(O); Pulse Ox 99% ; Pain 7/10; em 13:07 Weight 91.17 kg; em 13:45 BP 113 / 54; Pulse 152; Resp 10; Pulse Ox 98% on R/A; mh5 14:50 BP 117 / 78; Pulse 106; Resp 16; Pulse Ox 95% on R/A; mh5 15:45 BP 116 / 63; Pulse 126; Resp 12; Pulse Ox 97% on R/A; Pain 2/10; em 16:29 BP 109 / 81; Pulse 132; Resp 25; Temp 98.0(O); Pulse Ox 96% on R/A; mh5 16:56 BP 113 / 80; Pulse 139; Resp 18; Pulse Ox 96% on R/A; Pain 2/10; em 17:13 BP 114 / 62; Pulse 128; Resp 14; Pulse Ox 96% on R/A; em 18:15 BP 118 / 75; Pulse 120; Resp 14; Pulse Ox 96% on R/A; em 19:45 BP 143 / 71; Pulse 122; Resp 20; Pulse Ox 99% ; mb3 MDM: 12:57 Patient medically screened. jr8 15:56 Data reviewed: vital signs, nurses notes, lab test result(s), EKG, radiologic studies, jr8 CT scan, plain films, and as a result, I will admit patient. Data interpreted: Pulse oximetry: on room air is 97 %. Interpretation: normal. Counseling: I had a detailed discussion with the patient and/or guardian regarding: the historical points, exam findings, and any diagnostic results supporting the discharge/admit diagnosis, lab results, radiology results, the need for further work-up and treatment in the hospital. 01/13 12:49 Order name: Basic Metabolic Panel; Complete Time: 14:35 iw 01/13 12:49 Order name: BNP; Complete Time: 13:46 iw 01/13 12:49 Order name: CBC with Diff; Complete Time: 13:46 iw 01/13 12:49 Order name: Ckmb; Complete Time: 14:35 iw 01/13 12:49 Order name: CPK; Complete Time: 14:35 iw 01/13 12:49 Order name: LFT's; Complete Time: 14:35 iw 01/13 12:49 Order name: Magnesium; Complete Time: 14:35 iw 01/13 12:49 Order name: PT-INR; Complete Time: 14:12 iw 01/13 12:49 Order name: Ptt, Activated; Complete Time: 14:12 iw 01/13 12:49 Order name: Troponin (emerg Dept Use Only); Complete Time: 13:46 iw 01/13 12:49 Order name: Amylase, Serum; Complete Time: 14:35 iw 01/13 12:49 Order name: Blood Culture Adult (2) 01/13 12:49 Order name: C-Reactive Protein; Complete Time: 14:35 iw 01/13 12:49 Order name: Lactate; Complete Time: 13:32 iw 01/13 12:49 Order name: XRAY Chest (1 view); Complete Time: 15:53 iw 01/13 12:49 Order name: Lipase; Complete Time: 14:35 iw 01/13 12:49 Order name: Procalcitonin; Complete Time: 15:31 iw 01/13 12:49 Order name: Sed Rate; Complete Time: 13:46 iw 01/13 12:53 Order name: TSH; Complete Time: 14:12 iw 01/13 14:14 Order name: CT Abd/Pelvis - W/Contrast; Complete Time: 15:45 jr8 01/13 15:44 Order name: Abdomen Exam Limited; Complete Time: 16:10 EDMS 01/13 18:31 Order name: Urine Dipstick--Ancillary (enter results) 01/13 18:34 Order name: Urine Dipstick-Ancillary; Complete Time: 07:43 EDMS 01/13 12:49 Order name: EKG; Complete Time: 12:50 iw 01/13 12:49 Order name: Cardiac monitoring; Complete Time: 13:06 iw 01/13 12:49 Order name: EKG - Nurse/Tech; Complete Time: 13:06 iw 01/13 12:49 Order name: IV Saline Lock; Complete Time: 13:06 iw 01/13 12:49 Order name: Labs collected and sent; Complete Time: 13:06 iw 01/13 12:49 Order name: O2 Per Protocol; Complete Time: 13:06 iw 01/13 12:49 Order name: O2 Sat Monitoring; Complete Time: 13:06 iw 01/13 12:49 Order name: Urine Dipstick-Ancillary (obtain specimen); Complete Time: 18:46 iw 01/13 12:49 Order name: Accucheck; Complete Time: 13:06 iw 01/13 12:49 Order name: IV Saline Lock - Large Bore; Complete Time: 13:06 iw Administered Medications: 13:17 Drug: NS 0.9% (30 ml/kg) 30 ml/kg Route: IV; Rate: bolus; Site: left antecubital; em 15:51 Follow up: IV Status: Order to discontinue infusion; IV Intake: 1000ml em 14:25 Drug: fentaNYL (PF) 50 mcg Route: IVP; Site: PICC; iw 15:52 Follow up: Response: No adverse reaction; Pain is decreased em 14:25 Drug: Zofran 4 mg Route: IVP; Site: PICC; iw 15:53 Follow up: Response: No adverse reaction em 14:32 Drug: Lopressor 5 mg Route: IVP; Site: PICC; iw 15:53 Follow up: Response: No adverse reaction em 14:43 Drug: Magnesium Sulfate 1 grams Route: IVPB; Infused Over: 1 hrs; Site: left em antecubital; 15:50 Follow up: IV Status: Completed infusion; IV Intake: 100ml em 15:50 Drug: Potassium Chloride 20 mEq Route: IV; Rate: calculated rate; Site: PICC; iw 18:45 Follow up: Response: No adverse reaction; IV Status: Completed infusion; IV Intake: em 100ml 16:00 Drug: NS 0.9% 1000 ml Route: IV; Rate: 75 ml/hr; Site: PICC; iw 16:10 Drug: Solu-CORTEF 100 mg Route: IVP; Site: left antecubital; iw 16:55 Follow up: Response: No adverse reaction em 16:31 Drug: Zosyn 3.375 grams Route: IVPB; Infused Over: 60 mins; Site: left antecubital; em 18:44 Follow up: IV Status: Completed infusion; IV Intake: 100ml em 17:02 Drug: Lopressor 5 mg Route: IVP; Site: left antecubital; iw 18:44 Follow up: Response: No adverse reaction em 21:40 Drug: LORazepam 0.5 mg Route: PO; mb3 21:58 Drug: Metoprolol 5 mg Route: IVP; Site: right upper arm; mb3 Disposition: 01/13/18 18:01 Transfer ordered to [facility]. Diagnosis are Sepsis, Dehydration, Acute pancreatitis, Cholecystitis, unspecified, Hypokalemia, Hypomagnesemia, Atrial fibrillation and flutter - with RVR. - Reason for transfer: Higher level of care. - Accepting physician is Sourcing Coordinator at [facility]. - Condition is Fair. - Problem is new. - Symptoms have improved. Addendum: 01/16/2018 08:50 Co-signature as Attending Physician, Jose Elias Marquez MD I agree with the assessment and c eugene plan of care. Signatures: Dispatcher [employer] [facility] Jose Elias Marquez MD MD cha Chretien, Felicia, RN RN Prabhu Arce, SECURITY SYSTEMS INTEGRATOR SECURITY SYSTEMS INTEGRATOR em Guerita Ray, RN ODILON Patrick Delgado PA PA jr8 Lars Araujo RN RN mb3 Corrections: (The following items were deleted from the chart) 01/13 15:44 15:07 Abdomen Complete+US.RAD.BRZ ordered. [facility] 17:58 16:01 Hospitalization Ordered by Raul Cox DO for Inpatient Admission. Preliminary jr8 diagnosis is Atrial fibrillation and flutter - with RVR; Sepsis; Hypomagnesemia; Hypokalemia; Acute pancreatitis. Bed requested for Intensive Care Unit. Status is Inpatient Admission. Condition is Fair. Problem is new. Symptoms have improved. UTI on Admission? No. jr8 22:25 18:01 01/13/2018 18:01 Transfer ordered to [facility]. Diagnosis is mb3 Sepsis; Dehydration; Acute pancreatitis; Cholecystitis, unspecified; Hypokalemia; Hypomagnesemia; Atrial fibrillation and flutter - with RVR. Reason for transfer: Higher level of care. Accepting physician is Sourcing Coordinator at [facility]. Condition is Fair. Problem is new. Symptoms have improved. jr8
--- NOTE | 2018-01-13 16:05 | RAD REPORT ---
EXAM DESCRIPTION: US - Abdomen Exam Limited - 01/13/2018 3:47 pm CLINICAL HISTORY: Abdominal pain. COMPARISON: CT January 13, 2018 FINDINGS: The gallbladder wall measures 3.5 millimeters. A gallstone is not seen. The biliary tree is normal caliber. IMPRESSION: Mild gallbladder wall thickening may be secondary to acalculus cholecystitis or hypoalbu minemia
[2018-01-13 18:31] LABS: Urine Blood TRACE (NEG); Urine Glucose 2+ (NEG); Urine Protein TRACE (NEG)
[2018-01-13] MEDS ORDERED: LORAZEPAM 0.5 MG TABLET ONE (21:30)
[2018-01-13 22:39] VITALS: TEMP 98
[2018-01-13 22:44] VITALS: BP 143/71; O2SAT 99
== END 2018-01-13 22:25 | disposition short-term general hospital (02) ==
LOC: ER 12:37 → ERHOLD 16:01 → UNDOADMIN 16:01 → ER 22:25
DX: K81.9 Cholecystitis, unspecified (principal); A41.9 Sepsis, unspecified organism; E86.0 Dehydration; E87.6 Hypokalemia; E83.42 Hypomagnesemia; K85.90 Acute pancreatitis without necrosis or infection, unspecified; I48.91 Unspecified atrial fibrillation; I48.92 Unspecified atrial flutter; E11.9 Type 2 diabetes mellitus without complications; I10 Essential (primary) hypertension; I50.9 Heart failure, unspecified; Z79.01 Long term (current) use of anticoagulants; Z88.1 Allergy status to other antibiotic agents; Z88.8 Allergy status to other drugs, medicaments and biological substances
CPT/HCPCS: 36415; 51702; 71045; 74177; 76705; 80048; 80076; 81003; 82150; 82550; 82553; 83605; 83690; 83735; 83880; 84145; 84443; 84484; 85025; 85610; 85652; 85730; 86140; 87040 ×2; 93005; 99285; J1720; J2405; J2543; J3010; J3475; J7030; Q9967

== ENCOUNTER 2018-01-28 13:56 | Emergency (ER) | payer OTHER ==
--- OUTSIDE RECORDS SUMMARY | 2018-01-28 13:58 | XMS REPORT | Clinical Summary ---
:1940 Author Organization [facility] Address [address] [place] [address] Phone Care Team Providers Name Role Phone Unavailable Primary Care Provider Unavailable Allergies Active Allergy Reactions Severity Noted Date Comments Ciprofloxacin Itching 01/14/2018 Rivaroxaban Other (See Comments) 01/14/2018 Current Medications Prescription Sig. Disp. Refills Start Date End Date Status cholecalciferol, Take 5,000 Units Active vitamin D3, 5,000 by mouth once unit Tab every 2 weeks. atorvastatin Take 10 mg by 11/17/2017 Active (LIPITOR) 10 MG mouth daily . tablet warfarin (COUMADIN) Take 2.5 mg by 12/28/2017 Active 2.5 MG tablet mouth daily . liothyronine Take 5 mcg by 11/23/2017 Active (CYTOMEL) 5 MCG mouth daily . tablet gabapentin Take 600 mg by 12/19/2017 Active (NEURONTIN) 600 MG mouth 3 (three) tablet times daily . levothyroxine Take 125 mcg by Active (SYNTHROID, mouth Every LEVOTHROID) 125 MCG morning on an tabletIndications: empty stomach. hypothyroidism aspirin 81 MG Take 1 tablet 30 tablet 11 01/19/2018 Active chewable tablet (81 mg total) by 9 mouth daily. balsam maribel-castor Apply 1 1 Tube 0 01/18/2018 Active oil (VENELEX) application 87-788 mg/gram Oint topically daily. carvedilol (COREG) Take 1 tablet 60 tablet 11 01/18/2018 Active 25 MG tablet (25 mg total) by 9 mouth 2 (two) times daily. digoxin (LANOXIN) Take 1 tablet 30 tablet 11 01/19/2018 Active 0.25 MG tablet (250 mcg total) 9 by mouth daily. glipiZIDE Take 2 tablets 30 tablet 6 01/18/2018 Active (GLUCOTROL XL) 2.5 (5 mg total) by MG 24 hr tablet mouth daily. hydrocortisone Take 1 tablet 30 tablet 11 01/19/2018 Active (CORTEF) 20 MG (20 mg total) by 8 tablet mouth every morning for 30 days. hydrocortisone Take 1 tablet 30 tablet 11 01/18/2018 Active (CORTEF) 10 MG (10 mg total) by 8 tablet mouth every evening for 30 days. magnesium oxide Take 1 tablet 30 tablet 0 01/19/2018 Active (MAG-OX) 400 mg (400 mg total) 9 tablet by mouth daily. sotalol AF Take 1 tablet 60 tablet 11 01/18/2018 Active (BETAPACE AF) 80 MG (80 mg total) by 9 tablet mouth every 12 (twelve) hours. hydrocortisone Take 10 mg by Discontinued (CORTEF) 5 MG mouth 2 (two) 8 tablet times daily. potassium chloride Take 20 mEq by 11/22/2017 Discontinued SA (K-DUR,KLOR-CON) mouth daily . 8 20 MEQ tablet levothyroxine Take 12.5 mcg by 11/19/2017 Discontinued (SYNTHROID, mouth daily . 8 LEVOTHROID) 125 MCG tablet glipiZIDE Take 2.5 mg by 12/07/2017 Discontinued (GLUCOTROL XL) 2.5 mouth daily . 8 MG 24 hr tablet amLODIPine Take 5 mg by 01/05/2018 Discontinued (NORVASC) 5 MG mouth daily . 8 tablet DEXILANT 60 mg Take 60 mg by 01/03/2018 Discontinued capsule mouth daily . 8 fenofibrate Take 48 mg by 12/30/2017 Discontinued (TRICOR) 48 MG mouth daily . 8 tablet furosemide (LASIX) Take 20 mg by Discontinued 20 MG tablet mouth 2 (two) 8 times daily. Active Problems Problem Noted Date Pancreatitis 01/14/2018 Sepsis ([facility]) 01/14/2018 Paroxysmal A-fib ([facility]) 01/14/2018 Encounters Date Type Specialty Care Team Description 01/13/2018 - Hospital Encounter Intensive Care Samaria Seals Idiopathic acute 01/18/2018 MD Natanael pancreatitis, Yue Cervantes, unspecified MD complication status;Paroxysmal A-fib (HCC);Sepsis, due to unspecified organism (HCC);Idiopathic acute pancreatitis without infection or necrosis;Atrial fibrillation with RVR (HCC);Cardiogenic shock (HCC);Panhypopituitari sm (HCC);Central hypothyroidism;Seconda ry adrenal insufficiency (HCC) 01/13/2018 Telephone Critical Care Samaria Seals Tachycardia Medicine MD Natanael after 01/27/2017 Family History Medical History Relation Name Comments Heart disease Father Heart disease Mother Relation Name Status Comments Father Mother Social History Tobacco Use Types Packs/Day Years Used Date Former Smoker 1 Alcohol Use Drinks/Week oz/Week Comments No Sex Assigned at Date Recorded Not on file Last Filed Vital Signs Vital Sign Reading Time Taken Blood Pressure 169/70 01/18/2018 3:00 PM CDT Pulse 64 01/18/2018 3:00 PM CDT Temperature 36.9 C (98.4 F) 01/18/2018 3:00 PM CDT Respiratory Rate 19 01/18/2018 2:00 PM CDT Oxygen Saturation 100% 01/18/2018 3:00 PM CDT Inhaled Oxygen Concentration - - Weight 92.5 kg (203 lb 14.8 oz) 01/18/2018 3:00 AM CDT Height 162.6 cm (5' 4") 01/13/2018 11:00 PM CDT Body Mass Index 35 01/18/2018 3:00 AM CDT Plan of Treatment Not on file Results EKG-SCANNED (01/20/2018 3:11 PM)RHYTHM STRIP - SCAN (01/20/2018 3:11 PM) ECHOCARDIOGRAM REPORT - SCAN (01/19/2018 2:21 PM)2D Echo W/Doppler(CW/PW/Color ) (01/18/2018 1:59 PM) Component Value Ref Range Ejection Fraction Specimen Performing Laboratory [facility] ECHO HEARTLAB [id number] CPACS Narrative Transthoracic Echocardiography Report (TTE) Demographics Patient NameJORDANDANA Date of Study 01/18/2018 GenderFemale Visit [id number] Race Unknown Number [id number] Number Date of 1940 Referring Physician MORENA James Age 77 year(s) It Technical Support Specialist Agustín Stevenson [facility] License Inspector Stewart Mooneyting Alvaro Nguyen MD Physician Procedure Type of Study TTE procedure:2DECHO W DOPPLER(CW/PW/COLOR) (LOUIE) Indications:Known or suspected cardiomyopathy. Clinical History Atrial Fibrillation/flutter Diabetes Hyperlipidemia Hypertension Breast Cancer HGB 10.4 HCT 32.7 % Height: 64 inches Weight: 92.08 kg (203 lbs) BSA: 1.97 m^2 BMI: 34.84 kg/m^2 HR: 72 bpm BP: 140/83 mmHg Summary The left ventricle is chamber size (by PSLAX dimension) is normal (female - LVIDd 3.8-5.2cm) . No evidence of LV hypertrophy. All of the LV segments contract normally . Estimated LVEF by qualitative assessment is normal (55-60%) . LV endocardium is adequately visualized with IV ultrasound enhancing agent. Estimated peak systolic PA pressure is 35-40 mmHg . Signature Findings Technical Quality: Technically difficult exam. Left Ventricle The left ventricle is chamber size (by PSLAX dimension) is normal (female - LVIDd 3.8-5.2cm) . No evidence of LV hypertrophy. All of the LV segments contract normally . Estimated LVEF by qualitative assessment is normal (55-60%) . LV endocardium is adequately visualized with IV ultrasound enhancing agent. Left AtriumLA size is normal . Right VentricleNormal right ventricle structure and function. Right Atrium Normal right atrium. Aortic Valve Mild AoV cusp thickening. Mitral Valve Normal MV structure. Tricuspid ValveMild tricuspid regurgitation. Estimated peak systolic PA pressure is 35-40 mmHg . Pulmonic Valve Normal PV structure and function by limited views and Doppler. AortaAortic root size (SInus of Valsalva diameter) is normal . PericardiumAn echo lucent space is noted consistent with prominent pericardial fat pad. A trivial pericardial effusion is present . IVC/SVC/PA/PV/PleuralThe estimated RA pressure by IVC dynamics 11-15mmHg . Chambers/Structures Left Atrium LA Dimension: 3.58 cmLA Area: 19.53 cm^2 LA Volume: 52.71 ml LA Vol. Index: 27 ml/m^2 Left Ventricle LVIDd: 4.53 cm LV Septum Diastolic: 1.08 cm LV PW Diastolic: 1.06 cm LVOT Diameter: 2.12 cm Aorta Ao Root S of Kallie.: 3.24 cm Doppler/Quantitative Measurements LVOT Peak Velocity: 0.92 m/s Peak Gradient: 3.36 mmHg Mean Velocity: 0.5 m/sMean Gradient: 1.32 mmHg LVOT Diameter: 2.12 cmLVOT VTI: 18.43 cm LVOT Area: 3.53 cm^2LVOT SV:65.02 ml LVOT CO: 4.68 l/min LVOT CI: 2.38 l/min/m^2 Procedure Note Interface, External Ris In - 01/19/2018 1:49 PM CDT Transthoracic Echocardiography Report (TTE) Demographics Patient Name DANA PAYAN Date of Study 01/18/2018 Gender Female Visit Number [id number] Race Unknown Room Number 7106 Number Date of 1940 Referring Physician MORENA James Age 77 year(s) It Technical Support Specialist Agustín Stevenson [facility] License Inspector Stewart Velasco Interpreting Alvaro Nguyen MD Physician Procedure Type of Study TTE procedure:2DECHO W DOPPLER(CW/PW/COLOR) (LOUIE) Indications:Known or suspected cardiomyopathy. Clinical History Atrial Fibrillation/flutter Diabetes Hyperlipidemia Hypertension Breast Cancer HGB 10.4 HCT 32.7 % Height: 64 inches Weight: 92.08 kg (203 lbs) BSA: 1.97 m^2 BMI: 34.84 kg/m^2 HR: 72 bpm BP: 140/83 mmHg Summary The left ventricle is chamber size (by PSLAX dimension) is normal (female - LVIDd 3.8-5.2cm) . No evidence of LV hypertrophy. All of the LV segments contract normally . Estimated LVEF by qualitative assessment is normal (55-60%) . LV endocardium is adequately visualized with IV ultrasound enhancing agent. Estimated peak systolic PA pressure is 35-40 mmHg . Signature Findings Technical Quality: Technically difficult exam. Left Ventricle The left ventricle is chamber size (by PSLAX dimension) is normal (female - LVIDd 3.8-5.2cm) . No evidence of LV hypertrophy. All of the LV segments contract normally . Estimated LVEF by qualitative assessment is normal (55-60%) . LV endocardium is adequately visualized with IV ultrasound enhancing agent. Left Atrium LA size is normal . Right Ventricle Normal right ventricle structure and function. Right Atrium Normal right atrium. Aortic Valve Mild AoV cusp thickening. Mitral Valve Normal MV structure. Tricuspid Valve Mild tricuspid regurgitation. Estimated peak systolic PA pressure is 35-40 mmHg . Pulmonic Valve Normal PV structure and function by limited views and Doppler. Aorta Aortic root size (SInus of Valsalva diameter) is normal . Pericardium An echo lucent space is noted consistent with prominent pericardial fat pad. A trivial pericardial effusion is present . IVC/SVC/PA/PV/Pleural The estimated RA pressure by IVC dynamics 11-15mmHg . Chambers/Structures Left Atrium LA Dimension: 3.58 cm LA Area: 19.53 cm^2 LA Volume: 52.71 ml LA Vol. Index: 27 ml/m^2 Left Ventricle LVIDd: 4.53 cm LV Septum Diastolic: 1.08 cm LV PW Diastolic: 1.06 cm LVOT Diameter: 2.12 cm Aorta Ao Root S of Kallie.: 3.24 cm Doppler/Quantitative Measurements LVOT Peak Velocity: 0.92 m/s Peak Gradient: 3.36 mmHg Mean Velocity: 0.5 m/s Mean Gradient: 1.32 mmHg LVOT Diameter: 2.12 cm LVOT VTI: 18.43 cm LVOT Area: 3.53 cm^2 LVOT SV:65.02 ml LVOT CO: 4.68 l/min LVOT CI: 2.38 l/min/m^2 POC-Glucose meter (01/18/2018 12:29 PM)Only the most recent of16 resultswithin the time period is included. Component Value Ref Range POC-Glucose Meter 217 (H)Comment: TESTED AT [address] 70 - 110 mg/[place] [address] Specimen Performing Laboratory Blood [facility] [address] [address] CBC with platelet count + automated diff (01/18/2018 3:49 AM)Only the most recent of6 resultswithin the time period is included. Component Value Ref Range WBC 4.8 3.5 - 10.5 K/L RBC 3.28 (L) 3.93 - 5.22 M/L Hemoglobin 10.4 (L) 11.2 - 15.7 GM/DL Hematocrit 32.7 (L) 34.1 - 44.9 % MCV 99.7 (H) 79.4 - 94.8 fL MCH 31.7 25.6 - 32.2 pg MCHC 31.8 (L) 32.2 - 35.5 GM/DL RDW 14.7 (H) 11.7 - 14.4 % Platelets 141 (L) 150 - 450 K/CU MM MPV 11.2 9.4 - 12.3 fL nRBC 0 0 - 0 /100 WBC % Neutros 67 % % Lymphs 26 % % Monos 5 % % Eos 1 % % Baso 0 % # Neutros 3.21 1.56 - 6.13 K/L # Lymphs 1.24 1.18 - 3.74 K/L # Monos 0.23 (L) 0.24 - 0.36 K/L # Eos 0.06 0.04 - 0.36 K/L # Baso 0.02 0.01 - 0.08 K/L Immature Granulocytes-Relative 1 0 - 1 % Specimen Performing Laboratory Blood - Arm, [address] [address] Prothrombin time/INR (01/18/2018 3:49 AM)Only the most recent of7 resultswithin the time period is included. Component Value Ref Range Protime 23.7 (H) 11.7 - 14.7 seconds INR 2.1 <=5.9 Specimen Performing Laboratory Blood - Arm, [address] [address] Narrative RECOMMENDED COUMADIN/WARFARIN INR THERAPY RANGES STANDARD DOSE: 2.0 - 3.0 Includes: PROPHYLAXIS for venous thrombosis, systemic embolization; TREATMENT for venous thrombosis and/or pulmonary embolus. HIGH RISK: Target INR is 2.5-3.5 for patients with mechanical heart valves. CBC with platelet count + automated diff (01/18/2018 3:49 AM)Only the most recent of6 resultswithin the time period is included. Specimen Performing Laboratory Blood Narrative The following orders were created for panel order CBC with platelet count + automated diff. Procedure Abnormality Status --------- ------ CBC with platelet count ...[[id number]]AbnormalFinal result Please view results for these tests on the individual orders. Magnesium (01/18/2018 3:49 AM)Only the most recent of8 resultswithin the time period is included. Component Value Ref Range Magnesium 1.7 1.6 - 2.6 mg/dL Specimen Performing Laboratory Blood - Arm, [address] [address] Comprehensive metabolic panel (01/18/2018 3:49 AM)Only the most recent of6 resultswithin the time period is included. Component Value Ref Range Protein, Total 5.2 (L) 6.0 - 8.3 gm/dL Albumin 3.0 (L) 3.5 - 5.0 g/dL Alkaline Phosphatase 39 (L) 40 - 150 U/L Total Bilirubin 0.4 0.2 - 1.2 mg/dL Sodium 145 136 - 145 meq/L Potassium 3.6 3.5 - 5.1 meq/L Chloride 109 (H) 98 - 107 meq/L CO2 28 22 - 29 meq/L BUN 8 7 - 21 mg/dL Creatinine 0.70 0.57 - 1.25 mg/dL Glucose 107 (H) 70 - 105 mg/dL Calcium 8.4 8.4 - 10.2 mg/dL AST 9 5 - 34 U/L ALT <6 (L) 6 - 55 U/L EGFR 81Comment: ESTIMATED GFR IS NOT ACCURATE mL/min/1.73 sq m CREATININE CLEARANCE IN PREDICTING GLOMERULAR FILTRATION RATE. ESTIMATED GFR IS NOT APPLICABLE FOR DIALYSIS PATIENTS. Specimen Performing Laboratory Blood - Arm, Left [address] [address] ECG 12 lead (01/17/2018 7:28 AM)Only the most recent of2 resultswithin the time period is included. Specimen Performing Laboratory GE MUSE Narrative Ventricular Rate 62 BPM Atrial Rate 62 BPM P-R Interval 126 ms QRS Duration 72 ms Q-T Interval 392 ms QTC Calculation(Bazett) 397 ms P [place] 43 degrees R [place] 0 degrees T [place] 4 degrees Normal sinus rhythm Normal ECG When compared with ECG of 14-JAN-2018 07:47, Sinus rhythm has replaced Atrial fibrillation Vent. rate has decreased BY67 BPM Confirmed by Myriam CABELLO BASANT ([id number]) on 01/17/2018 9:57:49 PM Procedure Note Interface, External Ris In - 01/17/2018 9:57 PM CDT Ventricular Rate 62 BPM Atrial Rate 62 BPM P-R Interval 126 ms QRS Duration 72 ms Q-T Interval 392 ms QTC Calculation(Bazett) 397 ms P [place] 43 degrees R [place] 0 degrees T [place] 4 degrees Normal sinus rhythm Normal ECG When compared with ECG of 14-JAN-2018 07:47, Sinus rhythm has replaced Atrial fibrillation Vent. rate has decreased BY 67 BPM Confirmed by Myriam CABELLO BASANT ([id number]) on 01/17/2018 9:57:49 PM T3, free (01/17/2018 3:19 AM) Component Value Ref Range T3, Free 1.31 (L) 1.71 - 3.71 pg/mL Specimen Performing Laboratory Blood - Central Venous Line [address] [address] T3 (01/17/2018 3:19 AM) Component Value Ref Range T3, Total 41 (L) 48 - 159 ng/dL Specimen Performing Laboratory Blood - Central Venous Line [address] [address] Lipase (01/17/2018 3:19 AM)Only the most recent of2 resultswithin the time period is included. Component Value Ref Range Lipase 471 (H) 8 - 78 U/L Specimen Performing Laboratory Blood - Central Venous Line [address] [address] Basic Metabolic Panel (01/16/2018 4:26 PM) Component Value Ref Range Sodium 143 136 - 145 meq/L Potassium 4.1 3.5 - 5.1 meq/L Chloride 109 (H) 98 - 107 meq/L CO2 24 22 - 29 meq/L BUN 9 7 - 21 mg/dL Creatinine 0.74 0.57 - 1.25 mg/dL Glucose 249 (H) 70 - 105 mg/dL Calcium 8.1 (L) 8.4 - 10.2 mg/dL EGFR 76Comment: ESTIMATED GFR IS NOT ACCURATE mL/min/1.73 sq m CREATININE CLEARANCE IN PREDICTING GLOMERULAR FILTRATION RATE. ESTIMATED GFR IS NOT APPLICABLE FOR DIALYSIS PATIENTS. Specimen Performing Laboratory Blood [address] [address] Clostridium difficile GDH Toxin (01/16/2018 4:08 AM) Component Value Ref Range C. Difficle Toxin Negative Negative C. Difficile GDH Antigen Positive (A)Comment: C. difficile present but Negative toxin not detected. Indicates colonization with non-toxigenic strain or level of toxin below detectable levels. No need for enteric isolation. Treatment is rarely needed (only when strong clinical suspicion for Clostridium difficile infection) Specimen Performing Laboratory Stool [address] [address] Narrative Testing performed by [employer] Rapid Cassette Assay.For GDH, published sensitivity of the assay is 98.7% compared to cytotoxicity testing.For Toxin AB, published sensitivity is 87.8% and specificity 99.4% compared to cytotoxicity testing. Verification of kit performance was done by the [facility] Microbiology Lab prior to clinical use. Potassium (01/15/2018 5:00 PM)Only the most recent of2 resultswithin the time period is included. Component Value Ref Range Potassium 4.2 3.5 - 5.1 meq/L Specimen Performing Laboratory Blood [address] [address] Troponin I (01/14/2018 12:14 PM)Only the most recent of2 resultswithin the time period is included. Component Value Ref Range Troponin I 0.02 0.00 - 0.03 ng/mL Specimen Performing Laboratory Blood [address] [address] Narrative Troponin I (TnI) levels must be interpreted in the context of the presenting symptoms and the clinical findings. Elevated TnI levels indicate myocardial damage, but are not specific for ischemic heart disease. Elevated TnI levels are seen in patients with other cardiac conditions (including myocarditis and congestive heart failure), and slight TnI elevations occur in patients with other conditions, including sepsis, renal failure, acidosis, acute neurological disease, and persistent tachyarrhythmia. B-type Natriuretic Factor (BNP) (01/14/2018 11:08 AM) Component Value Ref Range BNP 975 (H) 0 - 100 pg/mL Specimen Performing Laboratory Blood [address] [address] US abdomen limited (01/14/2018 6:45 AM) Specimen Performing Laboratory [employer] RIS Narrative FINAL REPORT INDICATION: 77-year-old female with abdominal pain and elevated lipase. TECHNIQUE: Abdominal ultrasound limited (right upper quadrant). COMPARISON: None. FINDINGS: Pancreas, to the extent visualized, is unremarkable. IVC and proximal and mid abdominal aorta are unremarkable. Distal abdominal aorta not visualized because of bowel gas. Nonspecific slightly heterogeneous echotexture of the liver is noted. Liver contour appears smooth and liver appears normal in size. In the left hepatic lobe there is a 2.1 x 2.1 x 1.8 cm cyst. In the right hepatic lobe there is a 2.1 x 2.0 x 1.8 cm cyst. No suspicious liver mass demonstrated. Main portal vein is normal in caliber measuring 1.3 cm in diameter and demonstrates hepatopedal flow. Gallbladder is minimally distended with a transverse diameter of 2.5 cm. No pericholecystic fluid and no gallstones demonstrated. No definite gallbladder wall thickening. Ricks's sign reported as negative. Common bile duct is normal in caliber measuring 0.7 cm in diameter. Right kidney is normal in size measuring 10.7 x 5.8 x 5.5 cm. No right hydronephrosis or right renal mass demonstrated. IMPRESSION: No evidence of cholelithiasis or cholecystitis. Signed: Bouchra Yusuf MD Report Verified Date/Time:01/14/2018 10:23:02 Reading Location: [facility] [id number] Ortho Consult Reading Room Procedure Note Interface, External Ris In - 01/14/2018 10:25 AM CDT FINAL REPORT INDICATION: 77-year-old female with abdominal pain and elevated lipase. TECHNIQUE: Abdominal ultrasound limited (right upper quadrant). COMPARISON: None. FINDINGS: Pancreas, to the extent visualized, is unremarkable. IVC and proximal and mid abdominal aorta are unremarkable. Distal abdominal aorta not visualized because of bowel gas. Nonspecific slightly heterogeneous echotexture of the liver is noted. Liver contour appears smooth and liver appears normal in size. In the left hepatic lobe there is a 2.1 x 2.1 x 1.8 cm cyst. In the right hepatic lobe there is a 2.1 x 2.0 x 1.8 cm cyst. No suspicious liver mass demonstrated. Main portal vein is normal in caliber measuring 1.3 cm in diameter and demonstrates hepatopedal flow. Gallbladder is minimally distended with a transverse diameter of 2.5 cm. No pericholecystic fluid and no gallstones demonstrated. No definite gallbladder wall thickening. Ricks's sign reported as negative. Common bile duct is normal in caliber measuring 0.7 cm in diameter. Right kidney is normal in size measuring 10.7 x 5.8 x 5.5 cm. No right hydronephrosis or right renal mass demonstrated. IMPRESSION: No evidence of cholelithiasis or cholecystitis. Signed: Bouchra Yusuf MD Report Verified Date/Time: 01/14/2018 10:23:02 Reading Location: [facility] [id number] Ortho Consult Reading Room Vitamin B12 and Folate (01/14/2018 6:34 AM) Component Value Ref Range Vitamin B12 1276 (H) 213 - 816 pg/mL Folate 8.8 >=7.0 ng/mL Specimen Performing Laboratory Blood - Line, [address] [address] TSH/Free T4 If Indicated (01/14/2018 6:34 AM) Component Value Ref Range TSH 0.02 (L) 0.35 - 4.94 uIU/mL Specimen Performing Laboratory Blood - Line, [address] [address] T4, free (01/14/2018 6:34 AM) Component Value Ref Range Free T4 0.83 0.70 - 1.48 ng/dL Specimen Performing Laboratory Blood - Line, [address] [address] Lipid panel (01/14/2018 6:34 AM) Component Value Ref Range Triglycerides 171 mg/dL Cholesterol 123 mg/dL HDL 25 mg/dL LDL Calculated 64 mg/dL Specimen Performing Laboratory Blood - Line, [address] [address] Narrative Triglyceride Reference Range: Low Risk <150 [id number] High Risk 200-499 Very High Risk>=500 Cholesterol Reference Range: Low Risk <200 [id number] High Risk>240 HDL Cholesterol Reference Range: Low Risk >=60 High Risk <40 LDL Cholesterol Reference Range: Optimal<100 Near [id number] Very High >=190 Blood culture (01/14/2018 1:28 AM)Only the most recent of2 resultswithin the time period is included. Component Value Ref Range Result No growth in 5 days Specimen Performing Laboratory Blood - Line, [address] [address] Urinalysis w/Microscopic (01/14/2018 1:28 AM) Component Value Ref Range Color, UA Yellow Clarity, UA Clear Specific [place], UA 1.043 (H) 1.001 - 1.035 pH, UA 6.5 5.0 - 8.0 Protein, UA 20 mg/dL (A) Negative Glucose, UA 1000 mg/dL (A) Negative Ketones, UA Negative Negative Bilirubin, UA Negative Negative Blood, UA Trace (A) Negative Nitrite, UA Negative Negative Leukocytes, UA Negative Negative Urobilinogen, UA 0.2 0.2 - 1.0 mg/dL RBC, UA 1 /HPF WBC, UA 3 /HPF Bacteria, UA Rare Specimen Source Urine, [place] Specimen Performing Laboratory Urine - Urine, [address] [address] Urine culture (01/14/2018 1:28 AM) Component Value Ref Range Result No growth Specimen Performing Laboratory Urine - Urine, [address] [address] Procalcitonin (01/14/2018 1:26 AM) Component Value Ref Range Procalcitonin 0.41 (H) <0.05 ng/mL Specimen Performing Laboratory Blood - Central Venous Line [address] [address] Narrative SEPSIS RISK (ng/mL) Low:0.05-0.50 Intermediate: 0.51-2.00 High: >=2.01 Lactic acid, venous, whole blood (01/14/2018 1:26 AM) Component Value Ref Range Lactate, Venous 1.3Comment: Specimen slightly hemolyzed 0.5 - 2.2 mmol/L Specimen Performing Laboratory Blood - Central Venous Line [address] [address] Narrative Effective 01/07/2016: Units/Reference Range Change New: 0.5-2.2 mmol/LPrevious: 5-20 mg/dL aPTT (01/14/2018 1:26 AM) Component Value Ref Range PTT 32.4 22.5 - 36.0 seconds Specimen Performing Laboratory Blood - Central Venous Line [address] [address] Amylase (01/14/2018 1:26 AM) Component Value Ref Range Amylase 226 (H) 25 - 125 U/L Specimen Performing Laboratory Blood - Central Venous Line [address] [address] after 01/27/2017
--- OUTSIDE RECORDS SUMMARY | 2018-01-28 14:00 | XMS REPORT ---
:1940 [facility]ly [facility], [facility] [place] [address] Care Team Providers Name Role Phone RANCHO SANDOVAL Unavailable Unavailable Problems This patient has no known problems. Allergies, Adverse Reactions, Alerts This patient has no known allergies or adverse reactions. Medications This patient has no known medications. Results Test Description Test Time Test Comments Text Results Atomic Results Result Comments BLOOD CULTURE 2018-01-19 06:00:00 Test Item Value Reference Range Comments CULTURE (BEAKER) (test larg=3370) No growth in 5 days BLOOD [id number] 06:00:00 Test Item Value Reference Range Comments CULTURE (BEAKER) (test biyo=2056) No growth in 5 days POCT-GLUCOSE [id number] 12:32:00 Test Item Value Reference Range Comments POC-GLUCOSE METER (BEAKER) 217 mg/dL 70-110 TESTED AT [address] (test qkwi=3578) [facility] [address] POCT-GLUCOSE [id number] 08:36:00 Test Item Value Reference Range Comments POC-GLUCOSE METER (BEAKER) 92 mg/dL 70-110 TESTED AT [address] (test hjje=5491) [facility] [address] COMPREHENSIVE METABOLIC [id number] 04:59:00 Test Item Value Reference Range Comments TOTAL PROTEIN (BEAKER) 5.2 gm/dL 6.0-8.3 (test xwue=676) ALBUMIN (BEAKER) (test 3.0 g/dL 3.5-5.0 rkbi=0230) ALKALINE PHOSPHATASE 39 U/L 40-150 (BEAKER) (test poen=561) BILIRUBIN TOTAL (BEAKER) 0.4 mg/dL 0.2-1.2 (test sstw=249) SODIUM (BEAKER) (test 145 meq/L 136-145 uzia=398) POTASSIUM (BEAKER) (test 3.6 meq/L 3.5-5.1 zxpj=708) CHLORIDE (BEAKER) (test 109 meq/L 98-107 tktb=884) CO2 (BEAKER) (test 28 meq/L 22-29 uopy=912) BLOOD UREA NITROGEN 8 mg/dL 7-21 (BEAKER) (test ycyi=767) CREATININE (BEAKER) (test 0.70 mg/dL 0.57-1.25 esqt=792) GLUCOSE RANDOM (BEAKER) 107 mg/dL 70-105 (test xsno=820) CALCIUM (BEAKER) (test 8.4 mg/dL 8.4-10.2 cprv=606) AST (SGOT) (BEAKER) (test 9 U/L 5-34 icvt=396) ALT (SGPT) (BEAKER) (test < U/L 6-55 shhb=777) EGFR (BEAKER) (test 81 mL/min/1.73 sq m ESTIMATED GFR IS NOT qlgw=2173) ACCURATE CREATININE CLEARANCE IN PREDICTING GLOMERULAR FILTRATION RATE. ESTIMATED GFR IS NOT APPLICABLE FOR DIALYSIS PATIENTS. [id number] 04:50:00 Test Item Value Reference Range Comments MAGNESIUM (BEAKER) (test lrif=022) 1.7 mg/dL 1.6-2.6 PROTHROMBIN [id number] 04:35:00 Test Item Value Reference Range Comments PROTIME (BEAKER) (test yxxu=710) 23.7 seconds 11.7-14.7 INR (BEAKER) (test mwpn=981) 2.1 <=5.9 RECOMMENDED COUMADIN/WARFARIN INR THERAPY RANGESSTANDARD DOSE: 2.0 - 3.0 Includes: PROPHYLAXIS forvenous thrombosis, systemic embolization; TREATMENT for venous thrombosis and/or pulmonary embolus.HIGH RISK: Target INR is 2.5-3.5 for patients with mechanical heart valves.CBC W/PLT COUNT & AUTO [id number] 04:24:00 Test Item Value Reference Range Comments WHITE BLOOD CELL COUNT (BEAKER) (test kctv=267) 4.8 K/ L 3.5-10.5 RED BLOOD CELL COUNT (BEAKER) (test vkkb=800) 3.28 M/ L 3.93-5.22 HEMOGLOBIN (BEAKER) (test nywc=582) 10.4 GM/DL 11.2-15.7 HEMATOCRIT (BEAKER) (test ctid=793) 32.7 % 34.1-44.9 MEAN CORPUSCULAR VOLUME (BEAKER) (test gcgf=731) 99.7 fL 79.4-94.8 MEAN CORPUSCULAR HEMOGLOBIN (BEAKER) (test 31.7 pg 25.6-32.2 tnbf=414) MEAN CORPUSCULAR HEMOGLOBIN CONC (BEAKER) (test 31.8 GM/DL 32.2-35.5 hkns=280) RED CELL DISTRIBUTION WIDTH (BEAKER) (test 14.7 % 11.7-14.4 sqxh=459) PLATELET COUNT (BEAKER) (test xuda=601) 141 K/CU MM 150-450 MEAN PLATELET VOLUME (BEAKER) (test jvtp=915) 11.2 fL 9.4-12.3 NUCLEATED RED BLOOD CELLS (BEAKER) (test 0 /100 WBC 0-0 spbl=631) NEUTROPHILS RELATIVE PERCENT (BEAKER) (test 67 % vhkf=656) LYMPHOCYTES RELATIVE PERCENT (BEAKER) (test 26 % duwb=754) MONOCYTES RELATIVE PERCENT (BEAKER) (test 5 % qens=178) EOSINOPHILS RELATIVE PERCENT (BEAKER) (test 1 % pohh=846) BASOPHILS RELATIVE PERCENT (BEAKER) (test 0 % ezmx=762) NEUTROPHILS ABSOLUTE COUNT (BEAKER) (test 3.21 K/ L 1.56-6.13 vnxu=648) LYMPHOCYTES ABSOLUTE COUNT (BEAKER) (test 1.24 K/ L 1.18-3.74 qava=848) MONOCYTES ABSOLUTE COUNT (BEAKER) (test 0.23 K/ L 0.24-0.36 zsfz=777) EOSINOPHILS ABSOLUTE COUNT (BEAKER) (test 0.06 K/ L 0.04-0.36 lijv=957) BASOPHILS ABSOLUTE COUNT (BEAKER) (test 0.02 K/ L 0.01-0.08 pivy=622) IMMATURE GRANULOCYTES-RELATIVE PERCENT (BEAKER) 1 % 0-1 (test zpqn=9959) POCT-GLUCOSE [id number] 22:13:00 Test Item Value Reference Range Comments POC-GLUCOSE METER (BEAKER) 194 mg/dL 70-110 TESTED AT [facility] [address] [facility] (test ndxx=5507) [facility] [address] POCT-GLUCOSE [id number] 18:14:00 Test Item Value Reference Range Comments POC-GLUCOSE METER (BEAKER) 195 mg/dL 70-110 TESTED AT [address] (test fvco=7259) [facility] [address] POCT-GLUCOSE [id number] 12:20:00 Test Item Value Reference Range Comments POC-GLUCOSE METER (BEAKER) 224 mg/dL 70-110 TESTED AT [address] (test wuzk=0598) [facility] [address] [id number] 08:55:00 Test Item Value Reference Range Comments LIPASE (BEAKER) (test izco=248) 471 U/L 8-78 POCT-GLUCOSE [id number] 08:12:00 Test Item Value Reference Range Comments POC-GLUCOSE METER (BEAKER) 128 mg/dL 70-110 TESTED AT [address] (test ugia=6442) [facility] [address] [id number] 04:12:00 Test Item Value Reference Range Comments T3 TOTAL (BEAKER) (test nrgq=036) 41 ng/dL 48-159 T3, [id number] 04:11:00 Test Item Value Reference Range Comments T3 FREE (BEAKER) (test sxif=292) 1.31 pg/mL 1.71-3.71 COMPREHENSIVE METABOLIC [id number] 04:01:00 Test Item Value Reference Range Comments TOTAL PROTEIN (BEAKER) 4.8 gm/dL 6.0-8.3 (test ksuf=586) ALBUMIN (BEAKER) (test 2.8 g/dL 3.5-5.0 vtvq=3532) ALKALINE PHOSPHATASE 33 U/L 40-150 (BEAKER) (test nqmw=117) BILIRUBIN TOTAL (BEAKER) 0.4 mg/dL 0.2-1.2 (test tncl=805) SODIUM (BEAKER) (test 143 meq/L 136-145 zbyn=500) POTASSIUM (BEAKER) (test 4.0 meq/L 3.5-5.1 ejgd=885) CHLORIDE (BEAKER) (test 110 meq/L 98-107 qgzk=436) CO2 (BEAKER) (test 26 meq/L 22-29 emlm=834) BLOOD UREA NITROGEN 9 mg/dL 7-21 (BEAKER) (test gpcg=133) CREATININE (BEAKER) (test 0.73 mg/dL 0.57-1.25 dmhx=219) GLUCOSE RANDOM (BEAKER) 213 mg/dL 70-105 (test phuf=963) CALCIUM (BEAKER) (test 8.2 mg/dL 8.4-10.2 izls=360) AST (SGOT) (BEAKER) (test 8 U/L 5-34 kdub=703) ALT (SGPT) (BEAKER) (test < U/L 6-55 uibq=351) EGFR (BEAKER) (test 77 mL/min/1.73 sq m ESTIMATED GFR IS NOT qgue=3434) ACCURATE CREATININE CLEARANCE IN PREDICTING GLOMERULAR FILTRATION RATE. ESTIMATED GFR IS NOT APPLICABLE FOR DIALYSIS PATIENTS. [id number] 03:54:00 Test Item Value Reference Range Comments MAGNESIUM (BEAKER) (test nyxn=891) 1.7 mg/dL 1.6-2.6 PROTHROMBIN [id number] 03:53:00 Test Item Value Reference Range Comments PROTIME (BEAKER) (test xefs=251) 22.4 seconds 11.7-14.7 INR (BEAKER) (test pdmg=115) 2.0 <=5.9 RECOMMENDED COUMADIN/WARFARIN INR THERAPY RANGESSTANDARD DOSE: 2.0 - 3.0 Includes: PROPHYLAXIS forvenous thrombosis, systemic embolization; TREATMENT for venous thrombosis and/or pulmonary embolus.HIGH RISK: Target INR is 2.5-3.5 for patients with mechanical heart valves.CBC W/PLT COUNT & AUTO [id number] 03:46:00 Test Item Value Reference Range Comments WHITE BLOOD CELL COUNT (BEAKER) (test nhzv=047) 5.3 K/ L 3.5-10.5 RED BLOOD CELL COUNT (BEAKER) (test mtoe=042) 3.04 M/ L 3.93-5.22 HEMOGLOBIN (BEAKER) (test tlba=844) 9.7 GM/DL 11.2-15.7 HEMATOCRIT (BEAKER) (test dzeh=370) 30.6 % 34.1-44.9 MEAN CORPUSCULAR VOLUME (BEAKER) (test qbpv=617) 100.7 fL 79.4-94.8 MEAN CORPUSCULAR HEMOGLOBIN (BEAKER) (test 31.9 pg 25.6-32.2 gnfv=351) MEAN CORPUSCULAR HEMOGLOBIN CONC (BEAKER) (test 31.7 GM/DL 32.2-35.5 ymuo=405) RED CELL DISTRIBUTION WIDTH (BEAKER) (test 14.6 % 11.7-14.4 gaul=291) PLATELET COUNT (BEAKER) (test wmsj=400) 135 K/CU MM 150-450 MEAN PLATELET VOLUME (BEAKER) (test dype=737) 11.4 fL 9.4-12.3 NUCLEATED RED BLOOD CELLS (BEAKER) (test 0 /100 WBC 0-0 etxo=949) NEUTROPHILS RELATIVE PERCENT (BEAKER) (test 76 % gfrn=147) LYMPHOCYTES RELATIVE PERCENT (BEAKER) (test 19 % rdki=268) MONOCYTES RELATIVE PERCENT (BEAKER) (test 3 % eypf=945) EOSINOPHILS RELATIVE PERCENT (BEAKER) (test 0 % xkse=466) BASOPHILS RELATIVE PERCENT (BEAKER) (test 0 % drzl=178) NEUTROPHILS ABSOLUTE COUNT (BEAKER) (test 4.02 K/ L 1.56-6.13 gbyi=449) LYMPHOCYTES ABSOLUTE COUNT (BEAKER) (test 1.01 K/ L 1.18-3.74 bbjr=198) MONOCYTES ABSOLUTE COUNT (BEAKER) (test 0.15 K/ L 0.24-0.36 zrsu=891) EOSINOPHILS ABSOLUTE COUNT (BEAKER) (test 0.01 K/ L 0.04-0.36 nlon=555) BASOPHILS ABSOLUTE COUNT (BEAKER) (test 0.01 K/ L 0.01-0.08 dwcx=762) IMMATURE GRANULOCYTES-RELATIVE PERCENT (BEAKER) 1 % 0-1 (test iuse=4527) POCT-GLUCOSE [id number] 22:34:00 Test Item Value Reference Range Comments POC-GLUCOSE METER (BEAKER) 252 mg/dL 70-110 TESTED AT [facility] [address] [facility] (test kmyu=1233) [facility] [address] [id number] 19:36:00 Test Item Value Reference Range Comments MAGNESIUM (BEAKER) (test zexj=789) 1.6 mg/dL 1.6-2.6 BASIC METABOLIC [id number] 19:36:00 Test Item Value Reference Range Comments SODIUM (BEAKER) (test 143 meq/L 136-145 ovkw=222) POTASSIUM (BEAKER) (test 4.1 meq/L 3.5-5.1 ymzk=795) CHLORIDE (BEAKER) (test 109 meq/L 98-107 xnbb=817) CO2 (BEAKER) (test 24 meq/L 22-29 unma=460) BLOOD UREA NITROGEN 9 mg/dL 7-21 (BEAKER) (test uxqx=791) CREATININE (BEAKER) (test 0.74 mg/dL 0.57-1.25 itvr=185) GLUCOSE RANDOM (BEAKER) 249 mg/dL 70-105 (test jqdq=912) CALCIUM (BEAKER) (test 8.1 mg/dL 8.4-10.2 ftwe=225) EGFR (BEAKER) (test 76 mL/min/1.73 sq m ESTIMATED GFR IS NOT fbvz=2982) ACCURATE CREATININE CLEARANCE IN PREDICTING GLOMERULAR FILTRATION RATE. ESTIMATED GFR IS NOT APPLICABLE FOR DIALYSIS PATIENTS. URINE [id number] 11:51:00 Test Item Value Reference Range Comments CULTURE (BEAKER) (test wsgy=6674) No growth POCT-GLUCOSE [id number] 11:42:00 Test Item Value Reference Range Comments POC-GLUCOSE METER (BEAKER) 205 mg/dL 70-110 TESTED AT [facility] [address] [place] [address] (test zudv=5864) [facility] [address] POCT-GLUCOSE [id number] 08:08:00 Test Item Value Reference Range Comments POC-GLUCOSE METER (BEAKER) 119 mg/dL 70-110 TESTED AT [facility] [address] [facility] (test xbsq=7043) [facility] [address] C. DIFFICILE GDH [id number] 07:40:00 Test Item Value Reference Range Comments CDT TOXIN (test Negative Negative xduw=[id number]) CDT GDH ANTIGEN (test Positive Negative C. difficile present but toxin pphm=[id number]) not detected. Indicates colonization with non-toxigenic strain or level of toxin below detectable levels. No need for enteric isolation. Treatment is rarely needed (only when strong clinical suspicion for Clostridium difficile infection) Testing performed by [employer] Rapid Cassette Assay. For GDH, published sensitivity of the assay is 98.7% compared to cytotoxicity testing. For Toxin AB, published sensitivity is 87.8% and specificity 99.4% compared to cytotoxicity testing.Verification of kit performance was done by the [facility] Microbiology Lab prior to clinical use.POCT-GLUCOSE [id number] 06:37:00 Test Item Value Reference Range Comments POC-GLUCOSE METER (BEAKER) 141 mg/dL 70-110 TESTED AT [facility] [address] (test heps=8112) [facility] [address] COMPREHENSIVE METABOLIC [id number] 04:48:00 Test Item Value Reference Range Comments TOTAL PROTEIN (BEAKER) 4.7 gm/dL 6.0-8.3 (test iesr=468) ALBUMIN (BEAKER) (test 2.7 g/dL 3.5-5.0 xclr=7541) ALKALINE PHOSPHATASE 33 U/L 40-150 (BEAKER) (test ryzc=536) BILIRUBIN TOTAL (BEAKER) 0.4 mg/dL 0.2-1.2 (test apyd=810) SODIUM (BEAKER) (test 145 meq/L 136-145 nyut=257) POTASSIUM (BEAKER) (test 3.7 meq/L 3.5-5.1 aqwg=586) CHLORIDE (BEAKER) (test 110 meq/L 98-107 cbcm=839) CO2 (BEAKER) (test 28 meq/L 22-29 syeh=826) BLOOD UREA NITROGEN 11 mg/dL 7-21 (BEAKER) (test afqm=879) CREATININE (BEAKER) (test 0.74 mg/dL 0.57-1.25 ylyc=247) GLUCOSE RANDOM (BEAKER) 137 mg/dL 70-105 (test ksqg=740) CALCIUM (BEAKER) (test 8.2 mg/dL 8.4-10.2 xwom=312) AST (SGOT) (BEAKER) (test 8 U/L 5-34 aopg=009) ALT (SGPT) (BEAKER) (test < U/L 6-55 qekn=297) EGFR (BEAKER) (test 76 mL/min/1.73 sq m ESTIMATED GFR IS NOT jxjn=7324) ACCURATE CREATININE CLEARANCE IN PREDICTING GLOMERULAR FILTRATION RATE. ESTIMATED GFR IS NOT APPLICABLE FOR DIALYSIS PATIENTS. PROTHROMBIN [id number] 04:40:00 Test Item Value Reference Range Comments PROTIME (BEAKER) (test qswn=525) 23.8 seconds 11.7-14.7 INR (BEAKER) (test txvp=652) 2.1 <=5.9 RECOMMENDED COUMADIN/WARFARIN INR THERAPY RANGESSTANDARD DOSE: 2.0 - 3.0 Includes: PROPHYLAXIS forvenous thrombosis, systemic embolization; TREATMENT for venous thrombosis and/or pulmonary embolus.HIGH RISK: Target INR is 2.5-3.5 for patients with mechanical heart valves.While on warfarin.[id number] 04:29:00 Test Item Value Reference Range Comments MAGNESIUM (BEAKER) (test eaqf=185) 2.0 mg/dL 1.6-2.6 CBC W/PLT COUNT & AUTO [id number] 04:11:00 Test Item Value Reference Range Comments WHITE BLOOD CELL COUNT (BEAKER) (test exnv=054) 5.8 K/ L 3.5-10.5 RED BLOOD CELL COUNT (BEAKER) (test qszy=081) 3.18 M/ L 3.93-5.22 HEMOGLOBIN (BEAKER) (test pdav=067) 10.0 GM/DL 11.2-15.7 HEMATOCRIT (BEAKER) (test tbuh=808) 31.8 % 34.1-44.9 MEAN CORPUSCULAR VOLUME (BEAKER) (test axbh=472) 100.0 fL 79.4-94.8 MEAN CORPUSCULAR HEMOGLOBIN (BEAKER) (test 31.4 pg 25.6-32.2 nvlp=815) MEAN CORPUSCULAR HEMOGLOBIN CONC (BEAKER) (test 31.4 GM/DL 32.2-35.5 ipyg=144) RED CELL DISTRIBUTION WIDTH (BEAKER) (test 14.9 % 11.7-14.4 lekt=529) PLATELET COUNT (BEAKER) (test exkc=855) 141 K/CU MM 150-450 MEAN PLATELET VOLUME (BEAKER) (test bxvc=550) 11.3 fL 9.4-12.3 NUCLEATED RED BLOOD CELLS (BEAKER) (test 0 /100 WBC 0-0 glqf=780) NEUTROPHILS RELATIVE PERCENT (BEAKER) (test 71 % ppek=936) LYMPHOCYTES RELATIVE PERCENT (BEAKER) (test 23 % iegq=283) MONOCYTES RELATIVE PERCENT (BEAKER) (test 4 % xdjj=693) EOSINOPHILS RELATIVE PERCENT (BEAKER) (test 0 % ztnc=729) BASOPHILS RELATIVE PERCENT (BEAKER) (test 0 % evmb=609) NEUTROPHILS ABSOLUTE COUNT (BEAKER) (test 4.14 K/ L 1.56-6.13 ugns=618) LYMPHOCYTES ABSOLUTE COUNT (BEAKER) (test 1.34 K/ L 1.18-3.74 tzwc=433) MONOCYTES ABSOLUTE COUNT (BEAKER) (test 0.23 K/ L 0.24-0.36 asfk=128) EOSINOPHILS ABSOLUTE COUNT (BEAKER) (test 0.02 K/ L 0.04-0.36 ifbk=040) BASOPHILS ABSOLUTE COUNT (BEAKER) (test 0.02 K/ L 0.01-0.08 gahg=099) IMMATURE GRANULOCYTES-RELATIVE PERCENT (BEAKER) 1 % 0-1 (test gwxo=8684) POCT-GLUCOSE [id number] 22:19:00 Test Item Value Reference Range Comments POC-GLUCOSE METER (BEAKER) 266 mg/dL 70-110 TESTED AT [address] (test dwys=2778) [place] [address] [id number] 17:54:00 Test Item Value Reference Range Comments POTASSIUM (BEAKER) (test qixt=986) 4.2 meq/L 3.5-5.1 [id number] 17:23:00 Test Item Value Reference Range Comments MAGNESIUM (BEAKER) (test cyms=770) 1.7 mg/dL 1.6-2.6 POCT-GLUCOSE [id number] 12:41:00 Test Item Value Reference Range Comments POC-GLUCOSE METER (BEAKER) 111 mg/dL 70-110 TESTED AT [address] (test jgnm=0551) [place] [address] [id number] 12:40:00 Test Item Value Reference Range Comments POTASSIUM (BEAKER) (test ywia=923) 3.5 meq/L 3.5-5.1 POCT-GLUCOSE [id number] 10:05:00 Test Item Value Reference Range Comments POC-GLUCOSE METER (BEAKER) 94 mg/dL 70-110 TESTED AT [address] (test fjgu=2452) [place] [id number] COMPREHENSIVE METABOLIC [id number] 05:47:00 Test Item Value Reference Range Comments TOTAL PROTEIN (BEAKER) 4.7 gm/dL 6.0-8.3 (test hyhh=381) ALBUMIN (BEAKER) (test 2.7 g/dL 3.5-5.0 jveb=0100) ALKALINE PHOSPHATASE 31 U/L 40-150 (BEAKER) (test uxfb=698) BILIRUBIN TOTAL (BEAKER) 0.5 mg/dL 0.2-1.2 (test loak=770) SODIUM (BEAKER) (test 147 meq/L 136-145 rcif=392) POTASSIUM (BEAKER) (test 2.9 meq/L 3.5-5.1 obuh=624) CHLORIDE (BEAKER) (test 110 meq/L 98-107 hynf=083) CO2 (BEAKER) (test 27 meq/L 22-29 mpeu=533) BLOOD UREA NITROGEN 10 mg/dL 7-21 (BEAKER) (test jyvz=035) CREATININE (BEAKER) (test 0.70 mg/dL 0.57-1.25 rmdv=975) GLUCOSE RANDOM (BEAKER) 86 mg/dL 70-105 (test uiso=762) CALCIUM (BEAKER) (test 7.9 mg/dL 8.4-10.2 anep=854) AST (SGOT) (BEAKER) (test 9 U/L 5-34 rqdy=083) ALT (SGPT) (BEAKER) (test < U/L 6-55 yncv=728) EGFR (BEAKER) (test 81 mL/min/1.73 sq m ESTIMATED GFR IS NOT uokc=5924) ACCURATE CREATININE CLEARANCE IN PREDICTING GLOMERULAR FILTRATION RATE. ESTIMATED GFR IS NOT APPLICABLE FOR DIALYSIS PATIENTS. [id number] 05:44:00 Test Item Value Reference Range Comments MAGNESIUM (BEAKER) (test zvmj=035) 2.0 mg/dL 1.6-2.6 PROTHROMBIN [id number] 05:37:00 Test Item Value Reference Range Comments PROTIME (BEAKER) (test jvmf=398) 24.0 seconds 11.7-14.7 INR (BEAKER) (test kctu=374) 2.2 <=5.9 RECOMMENDED COUMADIN/WARFARIN INR THERAPY RANGESSTANDARD DOSE: 2.0 - 3.0 Includes: PROPHYLAXIS forvenous thrombosis, systemic embolization; TREATMENT for venous thrombosis and/or pulmonary embolus.HIGH RISK: Target INR is 2.5-3.5 for patients with mechanical heart valves.PROTHROMBIN [id number] 05:36: 00 Test Item Value Reference Range Comments PROTIME (BEAKER) (test szul=869) 24.2 seconds 11.7-14.7 INR (BEAKER) (test abgz=177) 2.2 <=5.9 RECOMMENDED COUMADIN/WARFARIN INR THERAPY RANGESSTANDARD DOSE: 2.0 - 3.0 Includes: PROPHYLAXIS forvenous thrombosis, systemic embolization; TREATMENT for venous thrombosis and/or pulmonary embolus.HIGH RISK: Target INR is 2.5-3.5 for patients with mechanical heart valves.While on warfarin.CBC W/PLT COUNT &amp ; AUTO [id number] 05:35:00 Test Item Value Reference Range Comments WHITE BLOOD CELL COUNT (BEAKER) (test ybsq=843) 4.3 K/ L 3.5-10.5 RED BLOOD CELL COUNT (BEAKER) (test xekt=658) 3.29 M/ L 3.93-5.22 HEMOGLOBIN (BEAKER) (test cuza=965) 10.3 GM/DL 11.2-15.7 HEMATOCRIT (BEAKER) (test rqby=721) 33.2 % 34.1-44.9 MEAN CORPUSCULAR VOLUME (BEAKER) (test etyj=462) 100.9 fL 79.4-94.8 MEAN CORPUSCULAR HEMOGLOBIN (BEAKER) (test 31.3 pg 25.6-32.2 pysk=796) MEAN CORPUSCULAR HEMOGLOBIN CONC (BEAKER) (test 31.0 GM/DL 32.2-35.5 npnn=367) RED CELL DISTRIBUTION WIDTH (BEAKER) (test 14.9 % 11.7-14.4 ptqb=162) PLATELET COUNT (BEAKER) (test twwe=426) 138 K/CU MM 150-450 MEAN PLATELET VOLUME (BEAKER) (test ossi=220) 11.5 fL 9.4-12.3 NUCLEATED RED BLOOD CELLS (BEAKER) (test 0 /100 WBC 0-0 cblp=431) NEUTROPHILS RELATIVE PERCENT (BEAKER) (test 66 % tilr=606) LYMPHOCYTES RELATIVE PERCENT (BEAKER) (test 27 % prkw=954) MONOCYTES RELATIVE PERCENT (BEAKER) (test 4 % ohgg=696) EOSINOPHILS RELATIVE PERCENT (BEAKER) (test 1 % iaag=302) BASOPHILS RELATIVE PERCENT (BEAKER) (test 0 % cumo=914) NEUTROPHILS ABSOLUTE COUNT (BEAKER) (test 2.82 K/ L 1.56-6.13 ulmh=819) LYMPHOCYTES ABSOLUTE COUNT (BEAKER) (test 1.16 K/ L 1.18-3.74 fvhv=689) MONOCYTES ABSOLUTE COUNT (BEAKER) (test 0.18 K/ L 0.24-0.36 qhrj=178) EOSINOPHILS ABSOLUTE COUNT (BEAKER) (test 0.06 K/ L 0.04-0.36 ocpa=742) BASOPHILS ABSOLUTE COUNT (BEAKER) (test 0.01 K/ L 0.01-0.08 blhl=706) IMMATURE GRANULOCYTES-RELATIVE PERCENT (BEAKER) 1 % 0-1 (test fpmy=8659) POCT-GLUCOSE [id number] 23:56:00 Test Item Value Reference Range Comments POC-GLUCOSE METER (BEAKER) 105 mg/dL 70-110 TESTED AT [address] (test lsug=3235) [place] [id number] TROPONIN [id number] 13:02:00 Test Item Value Reference Range Comments TROPONIN I (BEAKER) (test xaqx=647) 0.02 ng/mL 0.00-0.03 Troponin I (TnI) levels must be interpreted [...] failure, acidosis, acute neurological disease, and persistent tachyarrhythmia.B-TYPE NATRIURETIC FACTOR (BNP) 12:46:00 Test Item Value Reference Range Comments B-TYPE NATRIURETIC PEPTIDE (BEAKER) (test 975 pg/mL 0-100 wkyf=811) POCT-GLUCOSE [id number] 12:18:00 Test Item Value Reference Range Comments POC-GLUCOSE METER (BEAKER) 175 mg/dL 70-110 TESTED AT [address] (test upzk=0430) [place] [id number] U/S, ABDOMINAL, [id number] 10:23:00Abdomen limited area? Add comment if clarification is needed.->Gall BladderReason for exam:->Outside hospital US with gallbladder wall thickening concerning for acalculous cholecystitisReason forexam:->Clinically, has abdominal pain and elevated lipaseFINAL REPORT INDICATION: 77-year-old female with abdominal pain and elevated lipase. TECHNIQUE: Abdominal ultrasound limited ( right upper quadrant). COMPARISON: None. FINDINGS:Pancreas, to the extent visualized, is unremarkable. IVC [...] the right hepatic lobe there is a 2.1x 2.0 x 1.8 cm cyst. No suspicious liver mass demonstrated. Main portal vein is normal in caliber measuring 1.3 cm in diameter and demonstrates hepatopedal flow. Gallbladder is minimally distended witha transverse diameter of 2.5 cm. No pericholecystic [...] of cholelithiasis or cholecystitis. Signed: Bouchra Yusuf MDReport Verified Date/Time: 01/14/2018 10:23:02 Reading Location: [facility] C013X Ortho Consult Reading Room T4, [id number] 08:42 :00 Test Item Value Reference Range Comments FREE T4 (OmniklesAKER) (test ctdk=480) 0.83 ng/dL 0.70-1.48 POCT-GLUCOSE [id number] 08:37:00 Test Item Value Reference Range Comments POC-GLUCOSE METER (tradeNOW) 161 mg/dL 70-110 TESTED AT [facility] [address] [place] [address] (test iyno=6074) [facility] [id number] TSH/FREE T4 IF [id number] 08:05:00 Test Item Value Reference Range Comments THYROID STIMULATING HORMONE (BEAKER) (test 0.02 uIU/mL 0.35-4.94 iocr=386) VITAMIN B12 AND [id number] 07:42:00 Test Item Value Reference Range Comments VITAMIN B12 (BEAKER) (test dcqf=184) 1276 pg/mL 213-816 FOLATE (BEAKER) (test sgkr=898) 8.8 ng/mL >=7.0 LIPID [id number] 07:14:00 Test Item Value Reference Range Comments TRIGLYCERIDES (BEAKER) (test jcek=927) 171 mg/dL CHOLESTEROL (BEAKER) (test iiqq=324) 123 mg/dL HDL CHOLESTEROL (BEAKER) (test kjfr=454) 25 mg/dL LDL CHOLESTEROL CALCULATED (BEAKER) (test 64 mg/dL ikjj=035) Triglyceride Reference Range: Low Risk <150 Borderline 150- 199 High Risk 200-499 Very High Risk >=500Cholesterol Reference Range: Low Risk <200 Borderline 200-239 High Risk > 240HDL Cholesterol Reference Range: Low Risk >=60 High Risk <40LDL Cholesterol Reference Range: Optimal <100 Near Optimal 100-129 Borderline 130-159 High 160-189 Very High >=190TROPONIN [id number] 07:12:00 Test Item Value Reference Range Comments TROPONIN I (BEAKER) (test bvfp=005) 0.03 ng/mL 0.00-0.03 Troponin I (TnI) levels must be interpreted [...] failure, acidosis, acute neurological disease, and persistent tachyarrhythmia.URINALYSIS W/ [id number] 06: 35:00 Test Item Value Reference Range Comments COLOR (BEAKER) (test wdlf=564) Yellow CLARITY (BEAKER) (test nbfv=151) Clear SPECIFIC GRAVITY UA (BEAKER) (test doqe=696) 1.043 1.001-1.035 PH UA (BEAKER) (test yrlo=466) 6.5 5.0-8.0 PROTEIN UA (BEAKER) (test ndhx=851) 20 mg/dL Negative GLUCOSE UA (BEAKER) (test usem=235) 1000 mg/dL Negative KETONES UA (BEAKER) (test ipqk=274) Negative Negative BILIRUBIN UA (BEAKER) (test uvoa=601) Negative Negative BLOOD UA (BEAKER) (test cova=114) Trace Negative NITRITE UA (BEAKER) (test ygfb=037) Negative Negative LEUKOCYTE ESTERASE UA (BEAKER) (test sogg=035) Negative Negative UROBILINOGEN UA (BEAKER) (test umtk=245) 0.2 mg/dL 0.2-1.0 RBC UA (BEAKER) (test jytw=609) 1 /HPF WBC UA (BEAKER) (test mzgm=878) 3 /HPF BACTERIA (BEAKER) (test mcwd=929) Rare SOURCE(BEAKER) (test moce=8478) Urine, Taylor [id number] 06:07:00 Test Item Value Reference Range Comments MAGNESIUM (BEAKER) (test nhog=375) 1.8 mg/dL 1.6-2.6 [id number] 05:32:00 Test Item Value Reference Range Comments MAGNESIUM (BEAKER) (test qsjn=546) 2.5 mg/dL 1.6-2.6 COMPREHENSIVE METABOLIC [id number] 05:32:00 Test Item Value Reference Range Comments TOTAL PROTEIN (BEAKER) 5.1 gm/dL 6.0-8.3 (test kkcm=542) ALBUMIN (BEAKER) (test 2.9 g/dL 3.5-5.0 zkoz=2236) ALKALINE PHOSPHATASE 31 U/L 40-150 (BEAKER) (test tzdz=292) BILIRUBIN TOTAL (BEAKER) 0.4 mg/dL 0.2-1.2 (test cdnk=624) SODIUM (BEAKER) (test 145 meq/L 136-145 xcgp=384) POTASSIUM (BEAKER) (test 4.0 meq/L 3.5-5.1 lrmq=397) CHLORIDE (BEAKER) (test 110 meq/L 98-107 sbxl=275) CO2 (BEAKER) (test 28 meq/L 22-29 wuty=890) BLOOD UREA NITROGEN 14 mg/dL 7-21 (BEAKER) (test pgfz=902) CREATININE (BEAKER) (test 0.71 mg/dL 0.57-1.25 amoe=960) GLUCOSE RANDOM (BEAKER) 187 mg/dL 70-105 (test qisv=786) CALCIUM (BEAKER) (test 8.1 mg/dL 8.4-10.2 qedh=542) AST (SGOT) (BEAKER) (test 9 U/L 5-34 erml=927) ALT (SGPT) (BEAKER) (test 6 U/L 6-55 inwj=646) EGFR (BEAKER) (test 79 mL/min/1.73 sq m ESTIMATED GFR IS NOT blvt=0271) ACCURATE CREATININE CLEARANCE IN PREDICTING GLOMERULAR FILTRATION RATE. ESTIMATED GFR IS NOT APPLICABLE FOR DIALYSIS PATIENTS. PROTHROMBIN TIME/[id number] 05:10:00 Test Item Value Reference Range Comments PROTIME (BEAKER) (test okeh=780) 25.1 seconds 11.7-14.7 INR (BEAKER) (test iddc=706) 2.3 <=5.9 RECOMMENDED COUMADIN/WARFARIN INR THERAPY RANGESSTANDARD DOSE: 2.0 - 3.0 Includes: PROPHYLAXIS forvenous thrombosis, systemic embolization; TREATMENT for venous thrombosis and/or pulmonary embolus.HIGH RISK: Target INR is 2.5-3.5 for patients with mechanical heart valves.CBC W/PLT COUNT & AUTO [id number] 05:03:00 Test Item Value Reference Range Comments WHITE BLOOD CELL COUNT (BEAKER) (test tdmq=988) 5.6 K/ L 3.5-10.5 RED BLOOD CELL COUNT (BEAKER) (test bpca=886) 3.19 M/ L 3.93-5.22 HEMOGLOBIN (BEAKER) (test evfu=046) 10.1 GM/DL 11.2-15.7 HEMATOCRIT (BEAKER) (test wahw=916) 31.5 % 34.1-44.9 MEAN CORPUSCULAR VOLUME (BEAKER) (test pjbp=961) 98.7 fL 79.4-94.8 MEAN CORPUSCULAR HEMOGLOBIN (BEAKER) (test 31.7 pg 25.6-32.2 renj=364) MEAN CORPUSCULAR HEMOGLOBIN CONC (BEAKER) (test 32.1 GM/DL 32.2-35.5 moaz=946) RED CELL DISTRIBUTION WIDTH (BEAKER) (test 14.6 % 11.7-14.4 qgoo=254) PLATELET COUNT (BEAKER) (test ttsk=627) 141 K/CU MM 150-450 MEAN PLATELET VOLUME (BEAKER) (test mdco=136) 11.6 fL 9.4-12.3 NUCLEATED RED BLOOD CELLS (BEAKER) (test 0 /100 WBC 0-0 vvyu=509) NEUTROPHILS RELATIVE PERCENT (BEAKER) (test 71 % qdxf=897) LYMPHOCYTES RELATIVE PERCENT (BEAKER) (test 22 % mrsl=057) MONOCYTES RELATIVE PERCENT (BEAKER) (test 5 % pfba=545) EOSINOPHILS RELATIVE PERCENT (BEAKER) (test 0 % wago=133) BASOPHILS RELATIVE PERCENT (BEAKER) (test 0 % jvsw=198) NEUTROPHILS ABSOLUTE COUNT (BEAKER) (test 4.00 K/ L 1.56-6.13 huzn=514) LYMPHOCYTES ABSOLUTE COUNT (BEAKER) (test 1.25 K/ L 1.18-3.74 hoix=099) MONOCYTES ABSOLUTE COUNT (BEAKER) (test 0.26 K/ L 0.24-0.36 xaew=833) EOSINOPHILS ABSOLUTE COUNT (BEAKER) (test 0.02 K/ L 0.04-0.36 wpmx=523) BASOPHILS ABSOLUTE COUNT (BEAKER) (test 0.01 K/ L 0.01-0.08 jrvb=958) IMMATURE GRANULOCYTES-RELATIVE PERCENT (BEAKER) 1 % 0-1 (test gxhn=2505) [id number] 02:52:00 Test Item Value Reference Range Comments PROCALCITONIN (BEAKER) (test jzyh=3777) 0.41 ng/mL <0.05 SEPSIS RISK (ng/mL)Low: 0.05-0.50Intermediate: 0.51-2.00High: & gt;=2.01LACTIC ACID, VENOUS, WHOLE [id number] 02:06:00 Test Item Value Reference Range Comments LACTATE BLOOD VENOUS (2) 1.3 mmol/L 0.5-2.2 Specimen slightly hemolyzed (BEAKER) (test wpxe=4851) Effective 01/07/2016: Units/Reference Range ChangeNew: 0.5-2.2 mmol/L Previous: 5 -20 mg/dLCOMPREHENSIVE METABOLIC [id number] 02:06:00 Test Item Value Reference Range Comments TOTAL PROTEIN (BEAKER) 5.2 gm/dL 6.0-8.3 (test jnxj=859) ALBUMIN (BEAKER) (test 3.0 g/dL 3.5-5.0 nneo=6775) ALKALINE PHOSPHATASE 31 U/L 40-150 (BEAKER) (test hthq=930) BILIRUBIN TOTAL (BEAKER) 0.4 mg/dL 0.2-1.2 (test edqk=285) SODIUM (BEAKER) (test 143 meq/L 136-145 ueul=755) POTASSIUM (BEAKER) (test 2.9 meq/L 3.5-5.1 hffz=869) CHLORIDE (BEAKER) (test 109 meq/L 98-107 guxa=233) CO2 (BEAKER) (test 27 meq/L 22-29 wekz=428) BLOOD UREA NITROGEN 15 mg/dL 7-21 (BEAKER) (test tnud=191) CREATININE (BEAKER) (test 0.70 mg/dL 0.57-1.25 fyno=732) GLUCOSE RANDOM (BEAKER) 215 mg/dL 70-105 (test ixml=177) CALCIUM (BEAKER) (test 7.9 mg/dL 8.4-10.2 nbqr=429) AST (SGOT) (BEAKER) (test 10 U/L 5-34 iggm=532) ALT (SGPT) (BEAKER) (test 7 U/L 6-55 spgu=042) EGFR (BEAKER) (test 81 mL/min/1.73 sq m ESTIMATED GFR IS NOT uaqb=8858) ACCURATE CREATININE CLEARANCE IN PREDICTING GLOMERULAR FILTRATION RATE. ESTIMATED GFR IS NOT APPLICABLE FOR DIALYSIS PATIENTS. [id number] 02:04:00 Test Item Value Reference Range Comments LIPASE (BEAKER) (test ewzn=949) 730 U/L 8-78 [id number] 02:04:00 Test Item Value Reference Range Comments AMYLASE (BEAKER) (test xutl=953) 226 U/L 25-125 PROTHROMBIN [id number] 01:45:00 Test Item Value Reference Range Comments PROTIME (BEAKER) (test wgrc=953) 23.9 seconds 11.7-14.7 INR (BEAKER) (test skdg=322) 2.1 <=5.9 RECOMMENDED COUMADIN/WARFARIN INR THERAPY RANGESSTANDARD DOSE: 2.0 - 3.0 Includes: PROPHYLAXIS forvenous thrombosis, systemic embolization; TREATMENT for venous thrombosis and/or pulmonary embolus.HIGH RISK: Target INR is 2.5-3.5 for patients with mechanical heart valves.[id number] 01:45:00 Test Item Value Reference Range Comments PARTIAL THROMBOPLASTIN TIME (BEAKER) (test 32.4 seconds 22.5-36.0 hnqm=832) CBC W/PLT COUNT & AUTO [id number] 01:38:00 Test Item Value Reference Range Comments WHITE BLOOD CELL COUNT (BEAKER) (test wlkc=058) 4.9 K/ L 3.5-10.5 RED BLOOD CELL COUNT (BEAKER) (test btpf=119) 3.21 M/ L 3.93-5.22 HEMOGLOBIN (BEAKER) (test sphc=779) 10.2 GM/DL 11.2-15.7 HEMATOCRIT (BEAKER) (test zwmz=467) 31.6 % 34.1-44.9 MEAN CORPUSCULAR VOLUME (BEAKER) (test pjhh=127) 98.4 fL 79.4-94.8 MEAN CORPUSCULAR HEMOGLOBIN (BEAKER) (test 31.8 pg 25.6-32.2 deaf=669) MEAN CORPUSCULAR HEMOGLOBIN CONC (BEAKER) (test 32.3 GM/DL 32.2-35.5 vmup=698) RED CELL DISTRIBUTION WIDTH (BEAKER) (test 14.4 % 11.7-14.4 nnwj=373) PLATELET COUNT (BEAKER) (test swyr=235) 137 K/CU MM 150-450 MEAN PLATELET VOLUME (BEAKER) (test nfaj=822) 11.9 fL 9.4-12.3 NUCLEATED RED BLOOD CELLS (BEAKER) (test 0 /100 WBC 0-0 pawn=193) NEUTROPHILS RELATIVE PERCENT (BEAKER) (test 76 % skfr=177) LYMPHOCYTES RELATIVE PERCENT (BEAKER) (test 19 % vmex=894) MONOCYTES RELATIVE PERCENT (BEAKER) (test 4 % yqhv=956) EOSINOPHILS RELATIVE PERCENT (BEAKER) (test 0 % hcqd=743) BASOPHILS RELATIVE PERCENT (BEAKER) (test 0 % jkbp=374) NEUTROPHILS ABSOLUTE COUNT (BEAKER) (test 3.73 K/ L 1.56-6.13 sjjk=855) LYMPHOCYTES ABSOLUTE COUNT (BEAKER) (test 0.92 K/ L 1.18-3.74 kqls=487) MONOCYTES ABSOLUTE COUNT (BEAKER) (test 0.21 K/ L 0.24-0.36 pjnt=712) EOSINOPHILS ABSOLUTE COUNT (BEAKER) (test 0.00 K/ L 0.04-0.36 qfhm=325) BASOPHILS ABSOLUTE COUNT (BEAKER) (test 0.01 K/ L 0.01-0.08 ggkg=204) IMMATURE GRANULOCYTES-RELATIVE PERCENT (BEAKER) 1 % 0-1 (test lrss=4575)
[2018-01-28 16:17] LABS: Protime INR 2.64
[2018-01-28 16:18] LABS: Absolute Lymphocytes (CBC) 1.4 K/uL (0.7-4.9); Absolute Monocytes 0.4 K/uL (0.1-1.3); Absolute Neutrophil 3.1 K/uL (1.8-8.0); Basophils % 0.7 % (0-1.3); Hematocrit 36.6 % (36.0-45.0); Lymphocytes % 27.8 % (15.3-44.8); MCH 31.8 pg (27.0-35.0); MCV 95.4 fL (80-100); MPV 9.7 fL (7.6-11.3); Monocytes % 7.7 % (3.3-12.3); RBC Red Blood Cell Count 3.84 M/uL (3.86-4.86)
[2018-01-28 16:20] LABS: Bicarbonate 28 mEq/L (21-31); Glucose Level 162 mg/dL (65-120); Lipase 79 U/L (22-51); Potassium 3.3 mEq/L (3.6-5.0); Sodium Level 143 mEq/L (135-145)
[2018-01-28] MEDS ORDERED: NA CHLORIDE 0.9% 1,000 ML ONE (16:21)
[2018-01-28 16:26] LABS: ALT/SGPT 16 IU/L (10-60); AST/SGOT 21 IU/L (10-42); Albumin 3.4 g/dL (3.2-5.5); Alkaline Phosphatase 46 IU/L (42-121); BUN Blood Urea Nitrogen 10 mg/dL (6-20); Bilirubin Direct 0.1 mg/dL (0-0.2); Bilirubin Total 1.1 mg/dL (0.3-1.2)
--- NOTE | 2018-01-28 17:04 | RAD REPORT ---
EXAM DESCRIPTION: CTAbdomen Pelvis W Contrast - 01/28/2018 4:45 pm CLINICAL HISTORY: Abdominal pain. COMPARISON: 01/13/2018, 02/10/2017 TECHNIQUE: Biphasic CT imaging of the abdomen and pelvis was performed with 100 ml non-ionic IV cont rast. All CT scans are performed using dose optimization technique as appropriate and may include automated exposure control or mA/KV adjustment according to patient size. FINDINGS: The lung bases are clear. The liver contains multiple low-density lesions compatible with benign cysts. No focal liver lesion o r intrahepatic biliary dilatation. The spleen, pancreas, adrenal glands and kidneys are within normal limits. No bowel obstruction, free air, free fluid or abscess. Prominent colonic diverticulosis without diver ticulitis. The appendix is normal. No evidence of significant lymphadenopathy. Prominent lumbar degenerative changes. IMPRESSION: No acute intra-abdominal or pelvic finding.
[2018-01-28 17:55] LABS: Urine Bacteria <20 /HPF (<20); Urine RBC <5 /HPF (NONE SEEN)
[2018-01-28 17:56] LABS: Urine Culture Reflex Order NOT NEEDED
[2018-01-28 17:57] LABS: Urine Blood NEGATIVE (NEG); Urine Glucose NEGATIVE (NEG); Urine Protein TRACE (NEG); Urine Specific Gravity >1.030 (1.005-1.030); Urine pH 5.5 (5.0-7.0)
--- NOTE | 2018-01-28 18:19 | ER ---
Nurse's Notes [facility] Name: Emelia Payan Age: 77 yrs Sex: Female : 1940 Arrival Date: 01/28/2018 Time: 13:59 Bed 15 Private MD: Dany Iraheta Diagnosis: Unspecified abdominal pain Presentation: 01/28 14:32 Presenting complaint: Patient states: Patient reports difficulty swallowing for the ae1 past week. Reports coughing up clear mucous and "lomax" coming up. Transition of care: patient was not received from another setting of care. Onset of symptoms was January 22, 2018. 14:32 Method Of Arrival: Wheelchair ae1 14:39 Acuity: EDIS 3 ae1 Triage Assessment: 14:40 General: Appears in no apparent distress. comfortable, Behavior is calm, cooperative. ae1 Pain: Complains of pain in thyroid cartilage, right aspect of thyroid, left aspect of thyroid and suprasternal notch. Neuro: Level of Consciousness is awake, alert, obeys commands, Oriented to person, place, time, situation. Respiratory: Airway is patent Breath sounds are clear bilaterally. Historical: - Allergies: 14:38 Cipro; ae1 14:38 Xarelto; ae1 - PMHx: 14:38 adrenal insuficiency; CHF; Diabetes - IDDM; DVT; Hyperlipidemia; Hypertension; ae1 Hypothyroidism; 14:40 Pancreatitis; ae1 - PSHx: 14:38 pituitary gland removal; Lumpectomy; Hysterectomy; Carpal Tunnel Repair; DVT repair; ae1 - Immunization history:: Last tetanus immunization: < 5 years ago Pneumococcal vaccine is up to date, Flu vaccine is up to date. - Social history:: Smoking status: Patient/guardian denies using tobacco. Screenin:13 Abuse screen: Denies threats or abuse. Nutritional screening: No deficits noted. mb3 Tuberculosis screening: No symptoms or risk factors identified. Fall Risk No fall in past 12 months (0 pts). Secondary diagnosis (15 points) IV access (20 points). Ambulatory Aid- Crutches/Cane/Walker (15 pts). Gait- Impaired (20 pts.). Mental Status- Oriented to own ability (0 pts). Total Dickens Fall Scale indicates High Risk Score (45 or more points). Fall prevention measures have been instituted. Placed Close to Nursing Station Frequent Obs/Assessments Occuring Family Present and informed to notify staff if the need to leave the bedside. Assessment: 15:00 General: Appears uncomfortable, obese, Behavior is calm, cooperative, appropriate for mb3 age. Pain: Complains of pain in throat and down esphogas Quality of pain is described as burning, Pain began 2-3 days ago. Neuro: No deficits noted. Level of Consciousness is awake, alert, obeys commands, Oriented to person, place, time, situation. Cardiovascular: No deficits noted. Heart tones present Capillary refill < 3 seconds Patient's skin is warm and dry. Pulses are all present. Respiratory: No deficits noted. Airway is patent Respiratory effort is even, unlabored, Respiratory pattern is regular, symmetrical, Breath sounds are clear bilaterally. GI: Abdomen is round obese, Bowel sounds present X 4 quads. Reports heartburn. : No signs and/or symptoms were reported regarding the genitourinary system. Derm: No signs and/or symptoms reported regarding the dermatologic system. Musculoskeletal: No signs and/or symptoms reported regarding the musculoskeletal system. Capillary refill < 3 seconds, Range of motion: intact in all extremities. 16:00 Reassessment: No changes from previously documented assessment. Patient and/or family mb3 updated on plan of care and expected duration. Pain level reassessed. Patient is alert, oriented x 3, equal unlabored respirations, skin warm/dry/pink. 17:00 Reassessment: assisted to restroom, urine collected via hat use, sample sent to lab mb3 after dipping. 17:15 Reassessment: No changes from previously documented assessment. Patient and/or family mb3 updated on plan of care and expected duration. Pain level reassessed. Patient is alert, oriented x 3, equal unlabored respirations, skin warm/dry/pink. Vital Signs: 14:36 BP 158 / 72; Pulse 75; Resp 18; Temp 98.2(O); Pulse Ox 95% on R/A; Weight 86.18 kg (R); ae1 Pain 6/10; 15:59 BP 177 / 71; Pulse 68; Resp 18; Pulse Ox 96% on R/A; mb3 17:15 BP 88 / 59; Pulse 71; Resp 18; Pulse Ox 98% on R/A; mb3 ED Course: 13:59 Patient arrived in ED. mr 13:59 Dany Iraheta DO is Private Physician. mr 14:40 Triage completed. ae1 14:41 Arm band placed on left wrist. ae1 14:48 Lars Araujo, RN is Primary Nurse. mb3 15:09 [facility] pm1 15:09 Michael Tellez MD is Attending Physician. pm1 15:50 Inserted saline lock: 22 gauge in right antecubital area, using aseptic technique. mb3 Blood collected. 16:30 Radiology exam delayed due to lab results not completed at this time. (BUN/Creatinine). cw1 16:45 CT Abd/Pelvis - W/Contrast In Process Unspecified. EDMS 16:45 CT completed. Patient tolerated procedure well. Note: . Patient moved back from CT. cw1 Administered Medications: 16:15 Drug: NS 0.9% 1000 ml Route: IV; Rate: 1000 ml; Site: right antecubital; mb3 Outcome: 18:18 Discharge ordered by MD. pm1 18:28 Patient left the ED. iw Signatures: Dispatcher [employer] EDPA Dottie Frost Irene, RN RN Leyla Jones cw1 Hi Vila, [employer] pm1 Last Ortiz RN RN ae1 Lars Araujo, RN RN mb3
--- NOTE | 2018-01-28 18:19 | EDPHYS ---
Physician Documentation [facility] Name: Emelia Payan Age: 77 yrs Sex: Female : 1940 Arrival Date: 01/28/2018 Time: 13:59 Bed 15 Private MD: Dany Iraheta ED Physician Michael Tellez HPI: 01/28 16:00 This 77 yrs old Female presents to ER via Wheelchair with complaints of pm1 Urinary Problem, Difficulty Swallowing. 16:00 The patient presents with abdominal pain in the epigastric area. Onset: The pm1 symptoms/episode began/occurred 1 month(s) ago. The symptoms do not radiate. Associated signs and symptoms: Pertinent positives: burning sensation in throat with eating food. Increased urination, Pertinent negatives: dysuria, fever. The symptoms are described as burning. Modifying factors: the symptoms are aggravated by food. Severity of pain: in the emergency department the pain has improved. The patient has experienced similar episodes in the past, multiple times. The patient has been recently seen by a physician: Seen by Dr. Marin 2 days ago for the same complaint and given a prescription for omeprazole. patient with history of GERD and dilation of esophagus two times. Patient seen by commercial floor covering installer 4 days ago and given follow up in 6 months. Patient with burning sensation in throat with eating food. Patient's pain worse today after eating [employer] breakfast. Historical: - Allergies: 14:38 Cipro; ae1 14:38 Xarelto; ae1 - PMHx: 14:38 adrenal insuficiency; CHF; Diabetes - IDDM; DVT; Hyperlipidemia; Hypertension; ae1 Hypothyroidism; 14:40 Pancreatitis; ae1 - PSHx: 14:38 pituitary gland removal; Lumpectomy; Hysterectomy; Carpal Tunnel Repair; DVT repair; ae1 - Immunization history:: Last tetanus immunization: < 5 years ago Pneumococcal vaccine is up to date, Flu vaccine is up to date. - Social history:: Smoking status: Patient/guardian denies using tobacco. ROS: 16:00 Constitutional: Negative for fever, chills, and weight loss, Eyes: Negative for injury, pm1 pain, redness, and discharge, ENT: Negative for injury, pain, and discharge, Neck: Negative for injury, pain, and swelling, Cardiovascular: Negative for chest pain, palpitations, and edema, Respiratory: Negative for shortness of breath, cough, wheezing, and pleuritic chest pain. 16:00 Back: Negative for injury and pain, : Negative for injury, bleeding, discharge, and swelling, MS/Extremity: Negative for injury and deformity, Skin: Negative for injury, rash, and discoloration, Neuro: Negative for headache, weakness, numbness, tingling, and seizure. 16:00 Abdomen/GI: Positive for abdominal pain, Negative for nausea, vomiting, and diarrhea, constipation. 16:00 : Positive for urinary frequency, Negative for burning with urination, difficulty pm1 urinating. Exam: 16:00 Constitutional: This is a well developed, well nourished patient who is awake, alert, pm1 and in no acute distress. Head/Face: Normocephalic, atraumatic. Eyes: Pupils equal round and reactive to light, extra-ocular motions intact. Lids and lashes normal. Conjunctiva and sclera are non-icteric and not injected. Cornea within normal limits. Periorbital areas with no swelling, redness, or edema. ENT: Nares patent. No nasal discharge, no septal abnormalities noted. Tympanic membranes are normal and external auditory canals are clear. Oropharynx with no redness, swelling, or masses, exudates, or evidence of obstruction, uvula midline. Mucous membranes moist. Neck: Trachea midline, no thyromegaly or masses palpated, and no cervical lymphadenopathy. Supple, full range of motion without nuchal rigidity, or vertebral point tenderness. No Meningismus. Chest/axilla: Normal chest wall appearance and motion. Nontender with no deformity. No lesions are appreciated. Cardiovascular: Regular rate and rhythm with a normal S1 and S2. No gallops, murmurs, or rubs. Normal PMI, no JVD. No pulse deficits. Respiratory: Lungs have equal breath sounds bilaterally, clear to auscultation and percussion. No rales, rhonchi or wheezes noted. No increased work of breathing, no retractions or nasal flaring. 16:00 Back: No spinal tenderness. No costovertebral tenderness. Full range of motion. Skin: Warm, dry with normal turgor. Normal color with no rashes, no lesions, and no evidence of cellulitis. MS/ Extremity: Pulses equal, no cyanosis. Neurovascular intact. Full, normal range of motion. 16:00 Abdomen/GI: Inspection: abdomen appears normal, obese Bowel sounds: normal, Palpation: abdomen is soft and non-tender, in all quadrants. 16:00 Neuro: Orientation: is normal, Motor: is normal, moves all fours, Sensation: is normal, no obvious gross deficits. Vital Signs: 14:36 BP 158 / 72; Pulse 75; Resp 18; Temp 98.2(O); Pulse Ox 95% on R/A; Weight 86.18 kg (R); ae1 Pain 6/10; 15:59 BP 177 / 71; Pulse 68; Resp 18; Pulse Ox 96% on R/A; mb3 17:15 BP 88 / 59; Pulse 71; Resp 18; Pulse Ox 98% on R/A; mb3 MDM: 15:21 Patient medically screened. pm1 18:16 Data reviewed: vital signs. Data interpreted: Pulse oximetry: on room air is 98 %. pm1 Interpretation: normal. Counseling: I had a detailed discussion with the patient and/or guardian regarding: the historical points, exam findings, and any diagnostic results supporting the discharge/admit diagnosis, lab results, radiology results, the need for outpatient follow up, [place] as planned and Marin as needed, to return to the emergency department if symptoms worsen or persist or if there are any questions or concerns that arise at home. 18:16 Special discussion: Based on the patient's Hx, exam, and Dx evaluation, there is no pm1 indication for emergent surgery or inpatient Tx. It is understood by the patient/guardian that if the Sx's persist or worsen they need to return immediately for re-evaluation. 01/28 15:41 Order name: Basic Metabolic Panel; Complete Time: 17:13 pm1 01/28 15:41 Order name: CBC with Diff; Complete Time: 16:23 pm01/28 15:41 Order name: Creatinine for Radiology; Complete Time: 16:23 pm01/28 15:41 Order name: Hepatic Function; Complete Time: 17:13 pm01/28 15:41 Order name: Lipase; Complete Time: 17:13 pm1 01/28 15:41 Order name: Urine Microscopic Only; Complete Time: 18:01 pm1 01/28 15:41 Order name: IV Saline Lock; Complete Time: 15:57 pm1 01/28 15:41 Order name: Labs collected and sent; Complete Time: 15:57 pm1 01/28 15:41 Order name: Urine Dipstick-Ancillary (obtain specimen); Complete Time: 17:10 pm1 01/28 15:41 Order name: CT Abd/Pelvis - W/Contrast; Complete Time: 17:13 pm1 01/28 15:42 Order name: PT-INR; Complete Time: 16:23 pm1 01/28 15:42 Order name: Ptt, Activated; Complete Time: 16:23 pm1 01/28 17:42 Order name: Urine Dipstick--Ancillary (enter results); Complete Time: 18:01 bd Administered Medications: 16:15 Drug: NS 0.9% 1000 ml Route: IV; Rate: 1000 ml; Site: right antecubital; mb3 Disposition: 18:46 Co-signature as Attending Physician, Michael Tellez MD I agree with the assessment and kdr plan of care. Disposition: 01/28/18 18:18 Discharged to Home. Impression: Unspecified abdominal pain. - Condition is Stable. - Discharge Instructions: Abdominal Pain, Adult, Gastroesophageal Reflux Disease, Adult. - Medication Reconciliation Form, Thank You Letter form. - Follow up: Emergency Department; When: As needed; Reason: Worsening of condition. Follow up: Private Physician; When: 2 - 3 days; Reason: Recheck today's complaints, Continuance of care, Re-evaluation by your physician. - Problem is new. - Symptoms have improved. Signatures: Dispatcher [employer] EDMS Michael Tellez MD MD [facility] Guerita Ray RN RN iw Hi Vila, [employer] pm1 Last Ortiz RN RN ae1 Lars Araujo, RN RN mb3 Corrections: (The following items were deleted from the chart) 18:28 18:18 01/28/2018 18:18 Discharged to Home. Impression: Unspecified abdominal pain. iw Condition is Stable. Forms are Medication Reconciliation Form, Thank You Letter, Antibiotic Education, Prescription Opioid Use. Follow up: Emergency Department; When: As needed; Reason: Worsening of condition. Follow up: Private Physician; When: 2 - 3 days; Reason: Recheck today's complaints, Continuance of care, Re-evaluation by your physician. Problem is new. Symptoms have improved. pm1
[2018-01-28 18:35] VITALS: TEMP 98.2
[2018-01-28 18:37] VITALS: BP 88/59; O2SAT 98
== END 2018-01-28 18:28 | disposition home or self-care (01) ==
LOC: ER 13:56
DX: R10.9 Unspecified abdominal pain (principal); K21.9 Gastro-esophageal reflux disease without esophagitis; I10 Essential (primary) hypertension; Z88.1 Allergy status to other antibiotic agents; Z88.8 Allergy status to other drugs, medicaments and biological substances
CPT/HCPCS: 36415; 74177; 80048; 80076; 83690; 85025; 85610; 85730; 99284; J7030; Q9967; 81003; 81015

== ENCOUNTER 2018-09-10 13:03 | Emergency (ER) | payer OTHER ==
--- OUTSIDE RECORDS SUMMARY | 2018-09-10 13:06 | XMS REPORT | Clinical Summary ---
:1940 Author Organization [facility] Address [address] [place] [address] Care Team Providers Name Role Phone Unavailable Primary Care Provider Unavailable Allergies Active Allergy Reactions Severity Noted Date Comments Ciprofloxacin Itching 01/14/2018 Rivaroxaban Other (See Comments) 01/14/2018 Internal bleeding Medications Medication Sig Dispensed Refills Start Date End Date Status warfarin (COUMADIN) Take 2.5 mg by 0 12/28/2017 Active 2.5 MG tablet mouth daily . liothyronine Take 5 mcg by 0 11/23/2017 Active (CYTOMEL) 5 MCG mouth daily . tablet gabapentin Take 600 mg by 0 12/19/2017 Active (NEURONTIN) 600 MG mouth 3 (three) tablet times daily . levothyroxine Take 125 mcg by 0 Active (SYNTHROID, mouth Every LEVOTHROID) 125 MCG morning on an tabletIndications: empty stomach. hypothyroidism aspirin 81 MG Take 1 tablet 30 tablet 11 01/19/2018 Active chewable tablet (81 mg total) by 9 mouth daily. carvedilol (COREG) Take 1 tablet 60 tablet 11 01/18/2018 Active 25 MG tablet (25 mg total) by 9 mouth 2 (two) times daily. glipiZIDE Take 2 tablets 30 tablet 6 01/18/2018 Active (GLUCOTROL XL) 2.5 (5 mg total) by MG 24 hr tablet mouth daily. magnesium oxide Take 1 tablet 30 tablet 0 01/19/2018 Active (MAG-OX) 400 mg (400 mg total) 9 tablet by mouth daily. sotalol AF Take 1 tablet 60 tablet 11 01/18/2018 Active (BETAPACE AF) 80 MG (80 mg total) by 9 tablet mouth every 12 (twelve) hours. cholecalciferol, Take 50,000 0 Active vitamin D3, 50,000 Units by mouth unit Tab once every 2 weeks. hydrocortisone Take 10 mg by 0 Active (CORTEF) 20 MG mouth 2 (two) tablet times daily . fenofibrate Take 48 mg by 0 Active (TRICOR) 48 MG mouth daily. tablet omeprazole Take 40 mg by 0 Active (PRILOSEC) 40 MG mouth daily. capsule potassium chloride Take 10 mEq by 0 Active (KLOR-CON) 10 MEQ mouth daily. CR tablet LORazepam (ATIVAN) Take 0.5 mg by 0 Active 0.5 MG tablet mouth as needed for Anxiety. somatropin 5 mg/1.5 Inject 0 Active mL (3.3 mg/mL) PnIj subcutaneously. hydrocortisone Take 10 mg by 0 Discontinued (CORTEF) 5 MG mouth 2 (two) 8 tablet times daily. cholecalciferol, Take 50,000 0 Discontinued vitamin D3, 5,000 Units by mouth 8 unit Tab once every 2 weeks . atorvastatin Take 10 mg by 0 11/17/2017 Discontinued (LIPITOR) 10 MG mouth daily . 8 tablet potassium chloride Take 20 mEq by 0 11/22/2017 Discontinued SA (K-DUR,KLOR-CON) mouth daily . 8 20 MEQ tablet levothyroxine Take 12.5 mcg by 0 11/19/2017 Discontinued (SYNTHROID, mouth daily . 8 LEVOTHROID) 125 MCG tablet glipiZIDE Take 2.5 mg by 0 12/07/2017 Discontinued (GLUCOTROL XL) 2.5 mouth daily . 8 MG 24 hr tablet amLODIPine Take 5 mg by 0 01/05/2018 Discontinued (NORVASC) 5 MG mouth daily . 8 tablet DEXILANT 60 mg Take 60 mg by 0 01/03/2018 Discontinued capsule mouth daily . 8 fenofibrate Take 48 mg by 0 12/30/2017 Discontinued (TRICOR) 48 MG mouth daily . 8 tablet furosemide (LASIX) Take 20 mg by 0 Discontinued 20 MG tablet mouth 2 (two) 8 times daily. melvina berger Apply 1 1 Tube 0 01/18/2018 Discontinued oil (VENELEX) application 8 87-788 mg/gram Oint topically daily. digoxin (LANOXIN) Take 1 tablet 30 tablet 01/19/2018 Discontinued 0.25 MG tablet (250 mcg total) 8 by mouth daily. hydrocortisone Take 1 tablet 30 tablet 01/19/2018 (CORTEF) 20 MG (20 mg total) by 8 tablet mouth every morning for 30 days. hydrocortisone Take 1 tablet 30 tablet 01/18/2018 (CORTEF) 10 MG (10 mg total) by 8 tablet mouth every evening for 30 days. Active Problems Problem Noted Date Pancreatitis 01/14/2018 Sepsis 01/14/2018 Paroxysmal A-fib 01/14/2018 Encounters Date Type Specialty Care Team Description 03/14/2018 Anesthesia Event Gastroenterology Marc Fernandez MD 03/14/2018 Surgery Gastroenterology [facility] UPPER ENDOSCOPY,BIOPSY [facility] 03/14/2018 Hospital Gastroenterology [facility] Encounter [facility] 03/13/2018 Hospital Pre-Admission Testing [facility] Encounter [facility] Diana, [facility] Phone 01/13/2018 Hospital Intensive Care Samaria Seals Idiopathic acute pancreatitis, unspecified complication status; - Encounter MD Natanael Paroxysmal A-fib (HCC); 01/18/2018 Yue Cervantes, Sepsis, due to unspecified organism (HCC); Idiopathic acute pancreatitis without infection or necrosis; Atrial fibrillation with RVR (HCC); Cardiogenic shock (HCC); Panhypopituitarism (HCC); Central hypothyroidism; Secondary adrenal insufficiency (HCC) 01/13/2018 Telephone Critical Care Medicine Samaria Seals Tachycardia MD Natanael after 09/09/2017 Family History Medical History Relation Name Comments Heart disease Father Heart disease Mother Relation Name Status Comments Father Mother Social History Tobacco Use Types Packs/Day Years Used Date Never Smoker Smokeless Tobacco: Never Used Alcohol Use Drinks/Week oz/Week Comments No Sex Assigned at Date Recorded Not on file Job Start Date Occupation Industry Not on file Not on file Not on file Travel History Travel Start Travel End No recent travel history available. Last Filed Vital Signs Vital Sign Reading Time Taken Blood Pressure 132/71 03/14/2018 12:52 PM CDT Pulse 76 03/14/2018 12:52 PM CDT Temperature 36.7 C (98 F) 03/14/2018 12:52 PM CDT Respiratory Rate 16 03/14/2018 12:52 PM CDT Oxygen Saturation 99% 03/14/2018 12:52 PM CDT Inhaled Oxygen Concentration - - Weight 84 kg (185 lb 1.6 oz) 03/14/2018 9:31 AM CDT Height 162.6 cm (5' 4") 03/14/2018 9:31 AM CDT Body Mass Index 31.77 03/14/2018 9:31 AM CDT Plan of Treatment Not on file Procedures Procedure Name Priority Date/Time Associated Diagnosis Comments REPORT OF 03/14/2018 12:19 PROCEDURE - PM CDT ENDOSCOPY URL POCT-GLUCOSE METER Routine 03/14/2018 11:55 Results for this AM CDT procedure are in the results section. TISSUE EXAM AP Routine 03/14/2018 11:15 Results for this AM CDT procedure are in the results section. UPPER 03/14/2018 10:00 Acute pancreatitis, ENDOSCOPY,FNA AM CDT unspecified W/ULTRASOUND complication status, unspecified pancreatitis type Special Needs (LINEAR SCOPE) UPPER ENDOSCOPY,ULTRASOUND 03/14/2018 10:00 AM CDT Acute pancreatitis, unspecified complication status, unspecified pancreatitis type Special Needs (LINEAR SCOPE) UPPER ENDOSCOPY,POLYPECTOMY 03/14/2018 10:00 AM CDT Acute pancreatitis, unspecified complication status, unspecified pancreatitis type Special Needs (LINEAR SCOPE) UPPER ENDOSCOPY,SUBMUCOSAL 03/14/2018 10:00 AM CDT Acute pancreatitis, INJECTION unspecified complication status, unspecified pancreatitis type Special Needs (LINEAR SCOPE) UPPER ENDOSCOPY,BIOPSY 03/14/2018 10:00 AM CDT Acute pancreatitis, unspecified complication status, unspecified pancreatitis type Special Needs (LINEAR SCOPE) REPORT OF PROCEDURE - 01/20/2018 3:11 PM CDT ENDOSCOPY SCAN RHYTHM STRIP - SCAN 01/20/2018 3:11 PM CDT ECHOCARDIOGRAM REPORT - SCAN 01/19/2018 2:21 PM CDT 2D ECHO W/ DOPPLER LOUIE 01/18/2018 1:59 PM CDT Results for this (CW/PW/COLOR) procedure are in the results section. POCT-GLUCOSE METER Routine 01/18/2018 12:29 PM CDT POCT-GLUCOSE METER Routine 01/18/2018 8:17 AM CDT CBC W/PLT COUNT & AUTO Routine 01/18/2018 3:49 AM CDT Results for this DIFFERENTIAL procedure are in the results section. MAGNESIUM Routine 01/18/2018 3:49 AM CDT COMPREHENSIVE METABOLIC Routine 01/18/2018 3:49 AM CDT Results for this PANEL procedure are in the results section. PROTHROMBIN TIME/INR Routine 01/18/2018 3:49 AM CDT CBC W/PLT COUNT & AUTO Routine 01/18/2018 3:49 AM CDT Results for this DIFFERENTIAL procedure are in the results section. POCT-GLUCOSE METER Routine 01/17/2018 10:11 PM CDT POCT-GLUCOSE METER Routine 01/17/2018 6:08 PM CDT POCT-GLUCOSE METER Routine 01/17/2018 12:18 PM CDT POCT-GLUCOSE METER Routine 01/17/2018 8:09 AM CDT ECG 12-LEAD Routine 01/17/2018 7:28 AM CDT CBC W/PLT COUNT & AUTO Routine 01/17/2018 3:19 AM CDT Results for this DIFFERENTIAL procedure are in the results section. LIPASE Routine 01/17/2018 3:19 AM CDT T3 Routine 01/17/2018 3:19 AM CDT T3, FREE Routine 01/17/2018 3:19 AM CDT MAGNESIUM Routine 01/17/2018 3:19 AM CDT COMPREHENSIVE METABOLIC Routine 01/17/2018 3:19 AM CDT Results for this PANEL procedure are in the results section. PROTHROMBIN TIME/INR Routine 01/17/2018 3:19 AM CDT CBC W/PLT COUNT & AUTO Routine 01/17/2018 3:19 AM CDT Results for this DIFFERENTIAL procedure are in the results section. POCT-GLUCOSE METER Routine 01/16/2018 10:32 PM CDT MAGNESIUM Routine 01/16/2018 4:26 PM CDT BASIC METABOLIC PANEL (7) Routine 01/16/2018 4:26 PM CDT POCT-GLUCOSE METER Routine 01/16/2018 11:38 AM CDT POCT-GLUCOSE METER Routine 01/16/2018 8:06 AM CDT POCT-GLUCOSE METER Routine 01/16/2018 6:27 AM CDT C. DIFFICILE GDH TOXIN Routine 01/16/2018 4:08 AM CDT CBC W/PLT COUNT & AUTO Routine 01/16/2018 3:52 AM CDT Results for this DIFFERENTIAL procedure are in the results section. PROTHROMBIN TIME/INR Routine 01/16/2018 3:52 AM CDT MAGNESIUM Routine 01/16/2018 3:52 AM CDT COMPREHENSIVE METABOLIC Routine 01/16/2018 3:52 AM CDT Results for this PANEL procedure are in the results section. CBC W/PLT COUNT & AUTO Routine 01/16/2018 3:52 AM CDT Results for this DIFFERENTIAL procedure are in the results section. POCT-GLUCOSE METER Routine 01/15/2018 10:16 PM CDT POTASSIUM Add-On 01/15/2018 5:00 PM CDT MAGNESIUM Routine 01/15/2018 5:00 PM CDT POCT-GLUCOSE METER Routine 01/15/2018 12:26 PM CDT POTASSIUM STAT 01/15/2018 12:13 PM CDT POCT-GLUCOSE METER Routine 01/15/2018 10:03 AM CDT CBC W/PLT COUNT & AUTO Routine 01/15/2018 4:31 AM CDT Results for this DIFFERENTIAL procedure are in the results section. PROTHROMBIN TIME/INR Routine 01/15/2018 4:31 AM CDT MAGNESIUM Routine 01/15/2018 4:31 AM CDT COMPREHENSIVE METABOLIC Routine 01/15/2018 4:31 AM CDT Results for this PANEL procedure are in the results section. PROTHROMBIN TIME/INR Routine 01/15/2018 4:31 AM CDT CBC W/PLT COUNT & AUTO Routine 01/15/2018 4:31 AM CDT Results for this DIFFERENTIAL procedure are in the results section. POCT-GLUCOSE METER Routine 01/14/2018 11:04 PM CDT POCT-GLUCOSE METER Routine 01/14/2018 12:14 PM CDT TROPONIN I STAT 01/14/2018 12:14 PM CDT B-TYPE NATRIURETIC FACTOR Routine 01/14/2018 11:08 AM CDT Results for this (BNP) procedure are in the results section. POCT-GLUCOSE METER Routine 01/14/2018 8:32 AM CDT ECG 12-LEAD STAT 01/14/2018 7:47 AM CDT US ABDOMEN LIMITED Routine 01/14/2018 6:45 AM CDT T4, FREE Routine 01/14/2018 6:34 AM CDT TROPONIN I STAT 01/14/2018 6:34 AM CDT LIPID PANEL Routine 01/14/2018 6:34 AM CDT TSH/FREE T4 IF INDICATED Routine 01/14/2018 6:34 AM CDT VITAMIN B12 AND FOLATE Routine 01/14/2018 6:34 AM CDT CBC W/PLT COUNT & AUTO Routine 01/14/2018 4:44 AM CDT Results for this DIFFERENTIAL procedure are in the results section. MAGNESIUM Routine 01/14/2018 4:44 AM CDT COMPREHENSIVE METABOLIC Routine 01/14/2018 4:44 AM CDT Results for this PANEL procedure are in the results section. PROTHROMBIN TIME/INR Routine 01/14/2018 4:44 AM CDT CBC W/PLT COUNT & AUTO Routine 01/14/2018 4:44 AM CDT Results for this DIFFERENTIAL procedure are in the results section. URINALYSIS W/ MICROSCOPIC Routine 01/14/2018 1:28 AM CDT URINE CULTURE Routine 01/14/2018 1:28 AM CDT BLOOD CULTURE Routine 01/14/2018 1:28 AM CDT CBC W/PLT COUNT & AUTO Routine 01/14/2018 1:26 AM CDT Results for this DIFFERENTIAL procedure are in the results section. MAGNESIUM Add-On 01/14/2018 1:26 AM CDT LIPASE Routine 01/14/2018 1:26 AM CDT AMYLASE Routine 01/14/2018 1:26 AM CDT PROCALCITONIN Routine 01/14/2018 1:26 AM CDT LACTIC ACID, VENOUS, WHOLE Routine 01/14/2018 1:26 AM CDT Results for this BLOOD procedure are in the results section. APTT Routine 01/14/2018 1:26 AM CDT PROTHROMBIN TIME/INR Routine 01/14/2018 1:26 AM CDT COMPREHENSIVE METABOLIC Routine 01/14/2018 1:26 AM CDT Results for this PANEL procedure are in the results section. CBC W/PLT COUNT & AUTO Routine 01/14/2018 1:26 AM CDT Results for this DIFFERENTIAL procedure are in the results section. BLOOD CULTURE Routine 01/14/2018 1:26 AM CDT after 09/09/2017 Results REPORT OF PROCEDURE - ENDOSCOPY URL (03/14/2018 12:19 PM CDT) Narrative Performed At POC-Glucose meter (03/14/2018 11:55 AM CDT)Only the most recent of17 resultswithin the time period is included. POC-Glucose Meter 75Comment: TESTED AT 70 - 110 mg/dL [facility] [address] [id number] Specimen Blood Performing Organization Address City/State/Zipcode Phone Number [phone] [place], [place] [phone] CENTER Tissue Exam (03/14/2018 11:15 AM CDT) Case Report Surgical Pathology Report Case: [id number] [facility] Authorizing Provider:Luiz Hayesected: 03/14/2018 1115 [facility] Ordering Location: [facility] Endoscopy Received: 03/14/2018 1351 Services Pathologist: Mara Barboza MD Specimens: A) - Polyp, Duodenum B) - Stomach,Antrum, bx C) - Biopsy, Gastric, gastric body D) - Biopsy, Esophagus, random ADDENDUM THIS ADDENDUM IS ISSUED TO REPORT THE RESULT OF IMMUNOHISTOCHEMICAL STUDY FOR HELICOBACTER PYLORI OM SPECIMEN B: [facility] - NEGATIVE [facility] CPT CODE: 68419 DIAGNOSIS A. DUODENUM, ENDOSCOPIC POLYPECTOMY: [facility] - COMPATIBLE WITH PEPTIC DUODENITIS [facility] - NO FEATURES OF CELIAC DISEASE SEEM - NEGATIVE FOR DYSPLASIA OR MALIGNANCY B. STOMACH, ANTRUM, ENDOSCOPIC BIOPSY: - ACUTE GASTRITIS WITH EROSIONS AND REACTIVE GASTROPATHY - NO HELICOBACTER PYLORI-LIKE ORGANISMS SEEN ON WARTHIN-STARRY STAIN - NO INTESTINAL METAPLASI, DYSPLASIA OR MALIGNANCY NOTED - IMMUNOHISTOCHEMICAL STAIN FOR HELICOBACTER IS BEING DONE; RESULT WILL BE ISSUED IN FINAL REPORT C. STOMACH, BODY, ENDOSCOPIC BIOPSY: - OXYNTIC MUCOSA WITH NO PATHOLOGIC ALTERATION - NO HELICOBACTER PYLORI-LIKE ORGANISMS SEEN ON WARTHIN-STARRY STAIN - NO INTESTINAL METAPLASIA, DYSPLASIA OR MALIGNANCY NOTED D. ESOPHAGUS, RANDOM,ENDOSCOPIC BIOPSY - MULTIPLE FRAGMENTS OF SQUAMOUS MUCOSA WITH REACTIVE CHANGES - NO FEATURES OF REFLUX ESOPHAGITIS ARE SEEN - NO FEATURES OF EOSINOPHILIC ESOPHAGITIS NOTED - NO COLUMNAR MUCOSA PRESENT - NO DYSPLASIA OR MALIGNANCY SEEN Signing Pathologist Direct Phone Line: [phone] CPT Code(s) 78635 X 4; 73612 X 2 [facility] SPECIMEN SOURCE A. Polyp, duodenum. B. Stomach [facility] antrum. C. Biopsy, gastric, [facility] description gastric body. D. Biopsy, esophagus, description random GROSS DESCRIPTION Part A. Received in formalin, labeled "polyp, duodenum", is a 0.5 x 0.4 x 0.2 cm polypoid shaped brown-chavez fragment of soft tissue. The base is inked green, and the polyp is bisected and submitted entirely in one cassette (A1). [facility] Part B. Received in formalin labeled "stomach, antrum", is a 0.5 x 0.2 x 0.2 cm aggregate of irregular shaped brown-chavez fragment of soft tissue that is submitted in toto in one cassette (B1). Part C. Received in formalin labeled "biopsy, gastric" with description of "gastric body", are is a 0.4 x 0.2 x 0.2 cm aggregate of brown-chavez irregular shaped fragment of soft tissue. The specimen is submitted in toto in one cassette (C1). Part D. Received in formalin labeled "biopsy, esophagus", with description of "random", is a 0.5 x 0.2 x 0.2 cm aggregate of brown-chavez to white irregular shaped fragment of soft tissue that is submitted in toto in one cassette (D1). MH/ew SPECIAL STUDIES The following special studies were performed on this case and the interpretation is incorporated in the diagnostic report above: [facility] WARTHIN-STARRY X 2 [facility] Specimen Tissue - Polyp, Duodenum Performing Organization Address City/State/Zipcode Phone Number [facility] [address] [place] [address] CENTER EKG-SCANNED (01/20/2018 3:11 PM CDT) Narrative Performed At RHYTHM STRIP - SCAN (01/20/2018 3:11 PM CDT) Narrative Performed At ECHOCARDIOGRAM REPORT - SCAN (01/19/2018 2:21 PM CDT) Narrative Performed At 2D Echo W/Doppler(CW/PW/Color) (01/18/2018 1:59 PM CDT) Ejection Fraction [facility] Narrative Performed At Transthoracic Echocardiography Report (TTE) [facility] Demographics Patient NameDANA PAYAN Date of Study 01/18/2018 GenderFemale Visit [id number] [place] Number [id number] Number Date of 1940 Referring Physician MORENA James Age 77 year(s) Development Director Agustín Stevenson [facility] Production Broacher Stewart Nguyen MD Physician Procedure Type of Study [...] left ventricle is chamber size (by PSLAX di mension) is normal (female - LVIDd 3.8-5.2cm) . No evidence of LV hypertrophy. All of the LV se gments contract normally . Estimated LVEF by qu alitative assessment is normal (55-60%) . LV en docardium is adequately visualized with IV ul trasound enhancing agent. Left AtriumLA size is normal . Right VentricleNormal right ventricle structure and function. Right Atrium Normal right atrium. Aortic Valve Mild AoV cusp thickening. Mitral Valve Normal MV structure. Tricuspid ValveMild tricuspid regurgitation. Es timated peak systolic PA pressure is 35-40 mmHg . Pulmonic Valve Normal PV structure and function by limited views an d Doppler. AortaAortic root size (SInus of Valsalva diameter) is no rmal . PericardiumAn echo lucent space is noted consistent with pr ominent pericardial fat pad. A trivial pe ricardial effusion is present . IVC/SVC/PA/PV/PleuralThe estimated RA [...] of Study 01/18/2018 Gender Female Visit Number [id number] Race Unknown Room Number 7106 Number Date of 1940 Referring Physician MORENA James Age 77 year(s) Development Director Agustín Stevenson [facility] Production Broacher Stewart Velasco Interpreting Alvaro Nguyen MD Physician [...] CO: 4.68 l/min LVOT CI: 2.38 l/min/m^2 Performing Organization Address City/State/Zipcode Phone Number [facility] CBC with platelet count + automated diff (01/18/2018 3:49 AM CDT)Only the most recent of6 resultswithin the time period is included. WBC 4.8 3.5 - 10.5 K/L [facility] RBC 3.28 (L) 3.93 - 5.22 M/L [facility] Hemoglobin 10.4 (L) 11.2 - 15.7 GM/DL [facility] Hematocrit 32.7 (L) 34.1 - 44.9 % [facility] MCV 99.7 (H) 79.4 - 94.8 fL [facility] MCH 31.7 25.6 - 32.2 pg [facility] MCHC 31.8 (L) 32.2 - 35.5 GM/DL [facility] RDW 14.7 (H) 11.7 - 14.4 % [facility] Platelets 141 (L) 150 - 450 K/CU MM [facility] MPV 11.2 9.4 - 12.3 fL [facility] nRBC 0 0 - 0 /100 WBC [facility] % Neutros 67 % [facility] % Lymphs 26 % [facility] % Monos 5 % [facility] % Eos 1 % [facility] % Baso 0 % [facility] # Neutros 3.21 1.56 - 6.13 K/L [facility] # Lymphs 1.24 1.18 - 3.74 K/L [facility] # Monos 0.23 (L) 0.24 - 0.36 K/L [facility] # Eos 0.06 0.04 - 0.36 K/L [facility] # Baso 0.02 0.01 - 0.08 K/L [facility] Immature Granulocytes-Relative 1 0 - 1 % [facility] Specimen Blood - Arm, Left Performing Organization Address City/State/Zipcode Phone Number [facility] [address] [place] [address] CENTER Prothrombin time/INR (01/18/2018 3:49 AM CDT)Only the most recent of7 resultswithin the time period is included. Protime 23.7 (H) 11.7 - 14.7 seconds [facility] INR 2.1 <=5.9 [facility] Specimen Blood - Arm, Left Narrative Performed At [facility] RECOMMENDED COUMADIN/WARFARIN INR THERAPY RANGES STANDARD DOSE: 2.0 - 3.0 Includes: PROPHYLAXIS for venous thrombosis, systemic embolization; TREATMENT for venous thrombosis and/or pulmonary embolus. HIGH RISK: Target INR is 2.5-3.5 for patients with mechanical heart valves. Performing Organization Address City/[facility]/Zipcode Phone Number [phone] [place] [address] [place] Magnesium (01/18/2018 3:49 AM CDT)Only the most recent of8 resultswithin the time period is included. Magnesium 1.7 1.6 - 2.6 mg/dL [facility] Specimen Blood - Arm, Left Performing Organization Address [facility] Phone Number [address] [address] [place] Comprehensive metabolic panel (01/18/2018 3:49 AM CDT)Only the most recent of6 resultswithin the time period is included. Protein, Total 5.2 (L) 6.0 - 8.3 gm/dL [facility] Albumin 3.0 (L) 3.5 - 5.0 g/dL [facility] Alkaline Phosphatase 39 (L) 40 - 150 U/L [facility] Total Bilirubin 0.4 0.2 - 1.2 mg/dL [facility] Sodium 145 136 - 145 meq/L [facility] Potassium 3.6 3.5 - 5.1 meq/L [facility] Chloride 109 (H) 98 - 107 meq/L [facility] CO2 28 22 - 29 meq/L [facility] BUN 8 7 - 21 mg/dL [facility] Creatinine 0.70 0.57 - 1.25 mg/dL [facility] Glucose 107 (H) 70 - 105 mg/dL [facility] Calcium 8.4 8.4 - 10.2 mg/dL [facility] AST 9 5 - 34 U/L [facility] ALT <6 (L) 6 - 55 U/L [facility] EGFR 81Comment: ESTIMATED GFR mL/min/1.73 sq m [facility] IS NOT ACCURATE [facility] CREATININE CLEARANCE IN PREDICTING GLOMERULAR FILTRATION RATE. ESTIMATED GFR IS NOT APPLICABLE FOR DIALYSIS PATIENTS. Specimen Blood - Arm, Left Performing Organization Address [facility] Phone Number [facility] [address] [place] [address] CENTER ECG 12 lead (01/17/2018 7:28 AM CDT)Only the most recent of2 resultswithin the time period is included. Narrative Performed At Ventricular Rate 62 BPM GE MUSE Atrial Rate 62 BPM P-R Interval 126 ms QRS Duration 72 ms Q-T Interval 392 ms QTC Calculation(Bazett) 397 ms P [place] 43 degrees R [place] 0 degrees T [place] 4 degrees Normal sinus rhythm Normal ECG [...] 392 ms QTC Calculation(Bazett) 397 ms P [place] 43 degrees R [place] 0 degrees T [place] 4 degrees Normal sinus rhythm Normal ECG When compared with ECG of 14-JAN-2018 07:47, Sinus rhythm has replaced Atrial fibrillation Vent. rate has decreased BY 67 BPM Confirmed by Myriam CABELLO BASANT ([id number]) on 01/17/2018 9:57:49 PM Performing Organization Address [facility] Hospitalcofl Phone Number [employer] MUSE T3, free (01/17/2018 3:19 AM CDT) T3, Free 1.31 (L) 1.71 - 3.71 pg/mL [facility] Specimen Blood - Central Venous Line Performing Organization Address City/[facility] Phone Number [facility] [address] [address] [phone] CENTER T3 (01/17/2018 3:19 AM CDT) T3, Total 41 (L) 48 - 159 ng/dL [facility] Specimen Blood - Central Venous Line Performing Organization Address City/[facility] Phone Number [address] [address] CENTER Lipase (01/17/2018 3:19 AM CDT)Only the most recent of2 resultswithin the time period is included. Lipase 471 (H) 8 - 78 U/L [facility] Specimen Blood - Central Venous Line Performing Organization Address [facility] Phone Number [address] [address] [place] Basic Metabolic Panel (01/16/2018 4:26 PM CDT) Sodium 143 136 - 145 meq/L [facility] Potassium 4.1 3.5 - 5.1 meq/L [facility] Chloride 109 (H) 98 - 107 meq/L [facility] CO2 24 22 - 29 meq/L [facility] BUN 9 7 - 21 mg/dL [facility] Creatinine 0.74 0.57 - 1.25 mg/dL [facility] Glucose 249 (H) 70 - 105 mg/dL [facility] Calcium 8.1 (L) 8.4 - 10.2 mg/dL [facility] EGFR 76Comment: ESTIMATED GFR IS mL/min/1.73 sq m [facility] NOT ACCURATE CREATININE [facility] CLEARANCE IN PREDICTING GLOMERULAR FILTRATION RATE. ESTIMATED GFR IS NOT APPLICABLE FOR DIALYSIS PATIENTS. Specimen Blood Performing Organization Address [facility] Phone Number [address] [address] [phone] [place] Clostridium difficile [facility] Toxin (01/16/2018 4:08 AM CDT) C. Difficle Toxin Negative Negative [facility] C. Difficile [facility] Antigen Positive (A)Comment: C. Negative [facility] difficile present but toxin [facility] not detected. Indicates colonization with non-toxigenic strain or level of toxin below detectable levels. No need for enteric isolation. Treatment is rarely needed (only when strong clinical suspicion for Clostridium difficile infection) Specimen Stool - Stool Narrative Performed At Testing performed by [employer] [facility] Assay.For GDH, published sensitivity of the assay is 98.7% compared to cytotoxicity testing.For Toxin AB, published sensitivity is 87.8% and specificity 99.4% compared to cytotoxicity testing. Verification of kit performance was done by the [facility] Microbiology Lab prior to clinical use. Performing Organization Address City/[facility] Phone Number [address] [address] CENTER Potassium (01/15/2018 5:00 PM CDT)Only the most recent of2 resultswithin the time period is included. Potassium 4.2 3.5 - 5.1 meq/L [facility] Specimen Blood Performing Organization Address [facility] Phone Number [address] [address] CENTER Troponin I (01/14/2018 12:14 PM CDT)Only the most recent of2 resultswithin the time period is included. Troponin I 0.02 0.00 - 0.03 ng/mL [facility] Specimen Blood Narrative Performed At [facility] Troponin I (TnI) levels must be interpreted [...] acidosis, acute neurological disease, and persistent tachyarrhythmia. Performing Organization Address City/State/Zipcode Phone Number [facility] [address] [place] [address] CENTER B-type Natriuretic Factor (BNP) (01/14/2018 11:08 AM CDT) BNP 975 (H) 0 - 100 pg/mL [facility] Specimen Blood Performing Organization Address [facility]/Zipcode Phone Number [facility] [address] [place] [address] [phone] [place] US abdomen limited (01/14/2018 6:45 AM CDT) Narrative Performed At FINAL REPORT Nano INDICATION: 77-year-old female with abdominal pain and [...] No evidence of cholelithiasis or cholecystitis. Signed: Augustine Yusuf MD Report Verified Date/Time:01/14/2018 10:23:02 Reading Location: [facility] C013X Ortho Consult Reading Room Procedure [...] No evidence of cholelithiasis or cholecystitis. Signed: Augustine Yusuf MD Report Verified Date/Time: 01/14/2018 10:23:02 Reading Location: [facility] [id number] Ortho Consult Reading Room Performing Organization Address City/[facility]/Zipcode Phone Number [facility] Vitamin B12 and Folate (01/14/2018 6:34 AM CDT) Vitamin B12 1,276 (H) 213 - 816 pg/mL [facility] Folate 8.8 >=7.0 ng/mL [facility] Specimen Blood - Line, Venous Performing Organization Address City/[facility]/Zipcode Phone Number [facility] [address] [place] [address] CENTER TSH/Free T4 If Indicated (01/14/2018 6:34 AM CDT) TSH 0.02 (L) 0.35 - 4.94 uIU/mL [facility] Specimen Blood - Line, Venous Performing Organization Address [facility] Phone Number [address] [address] [place] T4, free (01/14/2018 6:34 AM CDT) Free T4 0.83 0.70 - 1.48 ng/dL [facility] Specimen Blood - Line, Venous Performing Organization Address [facility] Phone Number [address] [address] [place] Lipid panel (01/14/2018 6:34 AM CDT) Triglycerides 171 mg/dL [facility] Cholesterol 123 mg/dL [facility] HDL 25 mg/dL [facility] LDL Calculated 64 mg/dL [facility] Specimen Blood - Line, Venous Narrative Performed At [facility] Triglyceride Reference Range: Low Risk <150 [id number] High Risk 200-499 Very High Risk>=500 Cholesterol Reference Range: Low Risk <200 [id number] High Risk>240 HDL Cholesterol Reference Range: Low Risk >=60 High Risk <40 LDL Cholesterol Reference Range: Optimal<100 Near [id number] Very High >=190 Performing Organization Address [facility] Phone Number [address] [address] CENTER Blood culture (01/14/2018 1:28 AM CDT)Only the most recent of2 resultswithin the time period is included. Result No growth in 5 days [facility] Specimen Blood - Line, Venous Performing Organization Address [facility] Phone Number [address] [address] [place] Urinalysis w/Microscopic (01/14/2018 1:28 AM CDT) Color, UA Yellow [facility] Clarity, UA Clear [facility] Specific [place], UA 1.043 (H) 1.001 - 1.035 [facility] pH, UA 6.5 5.0 - 8.0 [facility] Protein, UA 20 mg/dL (A) Negative [facility] Glucose, UA 1000 mg/dL (A) Negative [facility] Ketones, UA Negative Negative [facility] Bilirubin, UA Negative Negative [facility] Blood, UA Trace (A) Negative [facility] Nitrite, UA Negative Negative [facility] Leukocytes, UA Negative Negative [facility] Urobilinogen, UA 0.2 0.2 - 1.0 mg/dL [facility] RBC, UA 1 /HPF [facility] WBC, UA 3 /HPF [facility] Bacteria, UA Rare [facility] Specimen Source Urine, Taylor [facility] Specimen Urine - Urine, Taylor Performing Organization Address City/[facility]/Zipcode Phone Number [address] [address] [place] Urine culture (01/14/2018 1:28 AM CDT) Result No growth [facility] Specimen Urine - Urine, Taylor Performing Organization Address City/[facility]/Zipcode Phone Number [address] [address] [place] Procalcitonin (01/14/2018 1:26 AM CDT) Procalcitonin 0.41 (H) <0.05 ng/mL [facility] Specimen Blood - Central Venous Line Narrative Performed At [facility] SEPSIS RISK (ng/mL) Low:0.05-0.50 Intermediate: 0.51-2.00 High: >=2.01 Performing Organization Address [facility] Phone Number [address] [address] [phone] [place] Lactic acid, venous, whole blood (01/14/2018 1:26 AM CDT) Lactate, Venous 1.3Comment: Specimen 0.5 - 2.2 mmol/L [facility] slightly hemolyzed [facility] Specimen Blood - Central Venous Line Narrative Performed At [facility] Effective 01/07/2016: Units/Reference Range Change New: 0.5-2.2 mmol/LPrevious: 5-20 mg/dL Performing Organization Address [facility] Phone Number [address] [address] [phone] [place] aPTT (01/14/2018 1:26 AM CDT) PTT 32.4 22.5 - 36.0 seconds [facility] Specimen Blood - Central Venous Line Performing Organization Address [facility] Phone Number [address] [address] [place] Amylase (01/14/2018 1:26 AM CDT) Amylase 226 (H) 25 - 125 U/L [facility] Specimen Blood - Central Venous Line Performing Organization Address [facility] Phone Number [address] [address] [place] after 09/09/2017 Insurance Payer Benefit Plan / Group Subscriber ID Type Phone Address MEDICARE MEDICARE A B xxxxxxxxxx Medicare AETNA - MGD CARE AETNA INDEMNITY NON CONTR xxxxxxxxxx Comm Advance Directives For more information, please contact:[address] [place], [place] [phone] Code Status Date Activated Date Inactivated Comments Full Code 01/14/2018 12:36 AM 01/18/2018 6:55 PM This code status was determined by: Patient
--- OUTSIDE RECORDS SUMMARY | 2018-09-10 13:07 | XMS REPORT ---
:1940 Author Organization [facility] Address [address] [place] [address] Dr. Saunders [address] [place] [address] Care Team Providers Name Role Phone MACIEJ VILLA Unavailable Unavailable RANCHO SANDOVAL Unavailable Unavailable Problems This patient has no known problems. Allergies, Adverse Reactions, Alerts This patient has no known allergies or adverse reactions. Medications This patient has no known medications. Results Test Description Test Time Test Comments Text Results Atomic Results Result Comments TISSUE EXAM 2018-03-20 13:06:00 Surgical Pathology Report Case: [id number] Authorizing Provider: Maciej Villa Collected: 03/14/2018 1115 Ordering Location: [facility] Endoscopy Received: 03/14/2018 1351 Services Pathologist: Mara Barboza MD Specimens: A) - Polyp, Duodenum B) - Stomach, Antrum, bx C) - Biopsy, Gastric, gastric body D) - Biopsy, Esophagus, random THIS ADDENDUM IS ISSUED TO REPORT THE RESULT OF IMMUNOHISTOCHEMICAL STUDY FOR HELICOBACTER PYLORI OM SPECIMEN B: - NEGATIVE CPT CODE: [id number] electronically signed by Mara Barboza MD on 03/20/2018 at 1:06 PMA. DUODENUM, ENDOSCOPIC POLYPECTOMY: - COMPATIBLE WITH PEPTIC DUODENITIS - NO FEATURES OF CELIAC DISEASE SEEM - NEGATIVE FOR DYSPLASIA OR MALIGNANCYB. STOMACH, ANTRUM, ENDOSCOPIC BIOPSY: - ACUTE GASTRITIS WITH EROSIONS AND REACTIVE GASTROPATHY - NO HELICOBACTER PYLORI-LIKE ORGANISMS SEEN ON WARTHIN-STARRY STAIN - NO INTESTINAL METAPLASI, DYSPLASIA OR MALIGNANCY NOTED - IMMUNOHISTOCHEMICAL STAIN FOR HELICOBACTER IS BEING DONE; RESULT WILL BE ISSUED IN FINAL REPORTC. STOMACH, BODY, ENDOSCOPIC BIOPSY: - OXYNTIC MUCOSA [...] MALIGNANCY SEEN Signing Pathologist Direct Phone Line: [phone] signed by Mara Barboza MD on 03/17/2018 at 10:35 [id number] X 4; [id number] X 2A. Polyp, duodenum. B. Stomach antrum. C. Biopsy, gastric, description gastric body. D. Biopsy, esophagus, description randomPart A. Received in formalin, labeled "polyp, duodenum", is a 0.5 x 0.4 x 0.2 cm polypoid shaped brown-chavez fragment of soft tissue. The base is inked green, and the polyp is bisected and submitted entirely in one cassette (A1).Part B. Received in formalin labeled "stomach, antrum", is a 0.5 x 0.2 x 0.2 cm aggregate of irregular shaped brown-chavez fragment of soft tissue that is submitted in toto in one cassette (B1).Part C. Received in formalin labeled "biopsy, gastric" with description of "gastric body", are is a 0.4 x 0.2 x 0.2 cm aggregate of brown-chavez irregular shaped fragment of soft tissue. The specimen is submitted in toto in one cassette (C1).Part D. Received in formalin labeled "biopsy, esophagus", with description of "random", is a 0.5 x 0.2 x 0.2 cm aggregate of brown-chavez to white irregular shaped fragment of soft tissue that is submitted in toto in one cassette (D1). MH/ewThe following special studies were performed on this case and the interpretation is incorporated in the diagnostic report above:AMBER X 2 POCT-GLUCOSE METER 2018-03-14 12:41:00 Test Item Value Reference Range Comments POC-GLUCOSE METER (BEAKER) (test 75 mg/dL 70-110 TESTED AT [facility] [address] [facility] lxeq=2893) [facility] [address] BLOOD [id number] 06:00:00 Test Item Value Reference Range Comments CULTURE (BEAKER) (test ycmh=6387) No growth in 5 days BLOOD [id number] 06:00:00 Test Item Value Reference Range Comments CULTURE (BEAKER) (test fhrk=0462) No growth in 5 days POCT-GLUCOSE [id number] 12:32:00 Test Item Value Reference Range Comments POC-GLUCOSE METER (BEAKER) 217 mg/dL 70-110 TESTED AT [facility] [address] [facility] (test kzux=3473) [facility] [address] POCT-GLUCOSE [id number] 08:36:00 Test Item Value Reference Range Comments POC-GLUCOSE METER (BEAKER) 92 mg/dL 70-110 TESTED AT [place] [id number] [facility] (test hymm=1353) [facility] [address] COMPREHENSIVE METABOLIC [id number] 04:59:00 Test Item Value Reference Range Comments TOTAL PROTEIN (BEAKER) 5.2 gm/dL 6.0-8.3 (test rrbj=531) ALBUMIN (BEAKER) (test 3.0 g/dL 3.5-5.0 jnuq=6775) ALKALINE PHOSPHATASE 39 U/L 40-150 (BEAKER) (test dmdb=590) BILIRUBIN TOTAL (BEAKER) 0.4 mg/dL 0.2-1.2 (test qaoi=995) SODIUM (BEAKER) (test 145 meq/L 136-145 vrgj=420) POTASSIUM (BEAKER) (test 3.6 meq/L 3.5-5.1 acyg=830) CHLORIDE (BEAKER) (test 109 meq/L 98-107 mvwk=084) CO2 (BEAKER) (test 28 meq/L 22-29 lddp=012) BLOOD UREA NITROGEN 8 mg/dL 7-21 (BEAKER) (test jiya=074) CREATININE (BEAKER) (test 0.70 mg/dL 0.57-1.25 tuxv=319) GLUCOSE RANDOM (BEAKER) 107 mg/dL 70-105 (test fmmq=017) CALCIUM (BEAKER) (test 8.4 mg/dL 8.4-10.2 bgqw=100) AST (SGOT) (BEAKER) (test 9 U/L 5-34 xfex=545) ALT (SGPT) (BEAKER) (test < U/L 6-55 dlrj=039) EGFR (BEAKER) (test 81 mL/min/1.73 sq m ESTIMATED GFR IS NOT jbjw=3661) ACCURATE CREATININE CLEARANCE IN PREDICTING GLOMERULAR FILTRATION RATE. ESTIMATED GFR IS NOT APPLICABLE FOR DIALYSIS PATIENTS. [id number] 04:50:00 Test Item Value Reference Range Comments MAGNESIUM (BEAKER) (test fkrr=358) 1.7 mg/dL 1.6-2.6 PROTHROMBIN [id number] 04:35:00 Test Item Value Reference Range Comments PROTIME (BEAKER) (test ynud=035) 23.7 seconds 11.7-14.7 INR (BEAKER) (test hgny=051) 2.1 <=5.9 RECOMMENDED COUMADIN/WARFARIN INR THERAPY RANGESSTANDARD DOSE: 2.0 - 3.0 Includes: PROPHYLAXIS forvenous thrombosis, systemic embolization; TREATMENT for venous thrombosis and/or pulmonary embolus.HIGH RISK: Target INR is 2.5-3.5 for patients with mechanical heart valves.CBC W/PLT COUNT & AUTO [id number] 04:24:00 Test Item Value Reference Range Comments WHITE BLOOD CELL COUNT (BEAKER) (test ondf=091) 4.8 K/ L 3.5-10.5 RED BLOOD CELL COUNT (BEAKER) (test hbwp=726) 3.28 M/ L 3.93-5.22 HEMOGLOBIN (BEAKER) (test mcbt=556) 10.4 GM/DL 11.2-15.7 HEMATOCRIT (BEAKER) (test rdes=921) 32.7 % 34.1-44.9 MEAN CORPUSCULAR VOLUME (BEAKER) (test apbw=371) 99.7 fL 79.4-94.8 MEAN CORPUSCULAR HEMOGLOBIN (BEAKER) (test 31.7 pg 25.6-32.2 hwst=845) MEAN CORPUSCULAR HEMOGLOBIN CONC (BEAKER) (test 31.8 GM/DL 32.2-35.5 tsnx=506) RED CELL DISTRIBUTION WIDTH (BEAKER) (test 14.7 % 11.7-14.4 aayn=935) PLATELET COUNT (BEAKER) (test cvel=287) 141 K/CU MM 150-450 MEAN PLATELET VOLUME (BEAKER) (test rucu=893) 11.2 fL 9.4-12.3 NUCLEATED RED BLOOD CELLS (BEAKER) (test 0 /100 WBC 0-0 cspx=226) NEUTROPHILS RELATIVE PERCENT (BEAKER) (test 67 % fnds=801) LYMPHOCYTES RELATIVE PERCENT (BEAKER) (test 26 % shiw=904) MONOCYTES RELATIVE PERCENT (BEAKER) (test 5 % ifxx=619) EOSINOPHILS RELATIVE PERCENT (BEAKER) (test 1 % zhyi=675) BASOPHILS RELATIVE PERCENT (BEAKER) (test 0 % wpib=684) NEUTROPHILS ABSOLUTE COUNT (BEAKER) (test 3.21 K/ L 1.56-6.13 btgb=538) LYMPHOCYTES ABSOLUTE COUNT (BEAKER) (test 1.24 K/ L 1.18-3.74 tuty=559) MONOCYTES ABSOLUTE COUNT (BEAKER) (test 0.23 K/ L 0.24-0.36 ztzm=323) EOSINOPHILS ABSOLUTE COUNT (BEAKER) (test 0.06 K/ L 0.04-0.36 jqhi=610) BASOPHILS ABSOLUTE COUNT (BEAKER) (test 0.02 K/ L 0.01-0.08 gxyf=912) IMMATURE GRANULOCYTES-RELATIVE PERCENT (BEAKER) 1 % 0-1 (test hhhe=6528) POCT-GLUCOSE [id number] 22:13:00 Test Item Value Reference Range Comments POC-GLUCOSE METER (BEAKER) 194 mg/dL 70-110 TESTED AT [address] (test ssra=4245) [place] [address] POCT-GLUCOSE [id number] 18:14:00 Test Item Value Reference Range Comments POC-GLUCOSE METER (BEAKER) 195 mg/dL 70-110 TESTED AT [address] (test sigz=5983) [place] [address] POCT-GLUCOSE [id number] 12:20:00 Test Item Value Reference Range Comments POC-GLUCOSE METER (BEAKER) 224 mg/dL 70-110 TESTED AT [address] (test ctvx=0546) [place] [address] [id number] 08:55:00 Test Item Value Reference Range Comments LIPASE (BEAKER) (test itks=075) 471 U/L 8-78 POCT-GLUCOSE [id number] 08:12:00 Test Item Value Reference Range Comments POC-GLUCOSE METER (BEAKER) 128 mg/dL 70-110 TESTED AT [address] (test mdlm=8648) [place] [address] [id number] 04:12:00 Test Item Value Reference Range Comments T3 TOTAL (BEAKER) (test gthi=059) 41 ng/dL 48-159 T3, [id number] 04:11:00 Test Item Value Reference Range Comments T3 FREE (BEAKER) (test ecze=030) 1.31 pg/mL 1.71-3.71 COMPREHENSIVE METABOLIC [id number] 04:01:00 Test Item Value Reference Range Comments TOTAL PROTEIN (BEAKER) 4.8 gm/dL 6.0-8.3 (test ufhu=291) ALBUMIN (BEAKER) (test 2.8 g/dL 3.5-5.0 ffzq=8491) ALKALINE PHOSPHATASE 33 U/L 40-150 (BEAKER) (test zjzh=735) BILIRUBIN TOTAL (BEAKER) 0.4 mg/dL 0.2-1.2 (test mnrl=270) SODIUM (BEAKER) (test 143 meq/L 136-145 fwta=926) POTASSIUM (BEAKER) (test 4.0 meq/L 3.5-5.1 rnqh=264) CHLORIDE (BEAKER) (test 110 meq/L 98-107 xeln=937) CO2 (BEAKER) (test 26 meq/L 22-29 gxrn=230) BLOOD UREA NITROGEN 9 mg/dL 7-21 (BEAKER) (test pegn=240) CREATININE (BEAKER) (test 0.73 mg/dL 0.57-1.25 idbx=023) GLUCOSE RANDOM (BEAKER) 213 mg/dL 70-105 (test ajle=912) CALCIUM (BEAKER) (test 8.2 mg/dL 8.4-10.2 myot=007) AST (SGOT) (BEAKER) (test 8 U/L 5-34 qhsf=493) ALT (SGPT) (BEAKER) (test < U/L 6-55 kbld=366) EGFR (BEAKER) (test 77 mL/min/1.73 sq m ESTIMATED GFR IS NOT nynt=9503) ACCURATE CREATININE CLEARANCE IN PREDICTING GLOMERULAR FILTRATION RATE. ESTIMATED GFR IS NOT APPLICABLE FOR DIALYSIS PATIENTS. [id number] 03:54:00 Test Item Value Reference Range Comments MAGNESIUM (BEAKER) (test ogrt=583) 1.7 mg/dL 1.6-2.6 PROTHROMBIN [id number] 03:53:00 Test Item Value Reference Range Comments PROTIME (BEAKER) (test yepi=977) 22.4 seconds 11.7-14.7 INR (BEAKER) (test uroe=343) 2.0 <=5.9 RECOMMENDED COUMADIN/WARFARIN INR THERAPY RANGESSTANDARD DOSE: 2.0 - 3.0 Includes: PROPHYLAXIS forvenous thrombosis, systemic embolization; TREATMENT for venous thrombosis and/or pulmonary embolus.HIGH RISK: Target INR is 2.5-3.5 for patients with mechanical heart valves.CBC W/PLT COUNT & AUTO [id number] 03:46:00 Test Item Value Reference Range Comments WHITE BLOOD CELL COUNT (BEAKER) (test ewte=831) 5.3 K/ L 3.5-10.5 RED BLOOD CELL COUNT (BEAKER) (test hwfw=380) 3.04 M/ L 3.93-5.22 HEMOGLOBIN (BEAKER) (test niwg=515) 9.7 GM/DL 11.2-15.7 HEMATOCRIT (BEAKER) (test lera=604) 30.6 % 34.1-44.9 MEAN CORPUSCULAR VOLUME (BEAKER) (test thzt=470) 100.7 fL 79.4-94.8 MEAN CORPUSCULAR HEMOGLOBIN (BEAKER) (test 31.9 pg 25.6-32.2 nwoz=359) MEAN CORPUSCULAR HEMOGLOBIN CONC (BEAKER) (test 31.7 GM/DL 32.2-35.5 juka=798) RED CELL DISTRIBUTION WIDTH (BEAKER) (test 14.6 % 11.7-14.4 lfdd=077) PLATELET COUNT (BEAKER) (test bufs=065) 135 K/CU MM 150-450 MEAN PLATELET VOLUME (BEAKER) (test ikkr=005) 11.4 fL 9.4-12.3 NUCLEATED RED BLOOD CELLS (BEAKER) (test 0 /100 WBC 0-0 hhdd=110) NEUTROPHILS RELATIVE PERCENT (BEAKER) (test 76 % uvfc=194) LYMPHOCYTES RELATIVE PERCENT (BEAKER) (test 19 % ofcj=717) MONOCYTES RELATIVE PERCENT (BEAKER) (test 3 % ydpd=258) EOSINOPHILS RELATIVE PERCENT (BEAKER) (test 0 % sadq=254) BASOPHILS RELATIVE PERCENT (BEAKER) (test 0 % sblc=516) NEUTROPHILS ABSOLUTE COUNT (BEAKER) (test 4.02 K/ L 1.56-6.13 kaio=064) LYMPHOCYTES ABSOLUTE COUNT (BEAKER) (test 1.01 K/ L 1.18-3.74 tzky=792) MONOCYTES ABSOLUTE COUNT (BEAKER) (test 0.15 K/ L 0.24-0.36 hoek=845) EOSINOPHILS ABSOLUTE COUNT (BEAKER) (test 0.01 K/ L 0.04-0.36 zgiz=511) BASOPHILS ABSOLUTE COUNT (BEAKER) (test 0.01 K/ L 0.01-0.08 born=739) IMMATURE GRANULOCYTES-RELATIVE PERCENT (BEAKER) 1 % 0-1 (test bfis=3178) POCT-GLUCOSE [id number] 22:34:00 Test Item Value Reference Range Comments POC-GLUCOSE METER (BEAKER) 252 mg/dL 70-110 TESTED AT [facility] [address] [facility] (test dnnr=2058) [facility] [address] [id number] 19:36:00 Test Item Value Reference Range Comments MAGNESIUM (BEAKER) (test fmue=681) 1.6 mg/dL 1.6-2.6 BASIC METABOLIC [id number] 19:36:00 Test Item Value Reference Range Comments SODIUM (BEAKER) (test 143 meq/L 136-145 mjqy=746) POTASSIUM (BEAKER) (test 4.1 meq/L 3.5-5.1 xzlv=329) CHLORIDE (BEAKER) (test 109 meq/L 98-107 pcxr=870) CO2 (BEAKER) (test 24 meq/L 22-29 utrh=946) BLOOD UREA NITROGEN 9 mg/dL 7-21 (BEAKER) (test qtjx=087) CREATININE (BEAKER) (test 0.74 mg/dL 0.57-1.25 aktf=894) GLUCOSE RANDOM (BEAKER) 249 mg/dL 70-105 (test rlab=963) CALCIUM (BEAKER) (test 8.1 mg/dL 8.4-10.2 cxdo=951) EGFR (BEAKER) (test 76 mL/min/1.73 sq m ESTIMATED GFR IS NOT lcml=2020) ACCURATE CREATININE CLEARANCE IN PREDICTING GLOMERULAR FILTRATION RATE. ESTIMATED GFR IS NOT APPLICABLE FOR DIALYSIS PATIENTS. URINE [id number] 11:51:00 Test Item Value Reference Range Comments CULTURE (BEAKER) (test mooe=6074) No growth POCT-GLUCOSE [id number] 11:42:00 Test Item Value Reference Range Comments POC-GLUCOSE METER (BEAKER) 205 mg/dL 70-110 TESTED AT [address] (test qcfx=7349) [facility] [address] POCT-GLUCOSE [id number] 08:08:00 Test Item Value Reference Range Comments POC-GLUCOSE METER (BEAKER) 119 mg/dL 70-110 TESTED AT [address] (test nerp=1550) [place] [id number] C. DIFFICILE GDH [id number] 07:40:00 Test Item Value Reference Range Comments CDT TOXIN (test Negative Negative exyz=[id number]) CDT GDH ANTIGEN (test Positive Negative C. difficile present but toxin qsna=[id number]) not detected. Indicates colonization with non-toxigenic strain or level of toxin below detectable levels. No need for enteric isolation. Treatment is rarely needed (only when strong clinical suspicion for Clostridium difficile infection) Testing performed by [employer] Rapid Cassette Assay. For GDH, published sensitivity of the assay is 98.7% compared to cytotoxicity testing. For Toxin AB, published sensitivity is 87.8% and specificity 99.4% compared to cytotoxicity testing.Verification of kit performance was done by the [facility] Microbiology Lab prior to clinical use.POCT-GLUCOSE [id number] 06:37:00 Test Item Value Reference Range Comments POC-GLUCOSE METER (BEAKER) 141 mg/dL 70-110 TESTED AT [address] (test suas=1215) [facility] [address] COMPREHENSIVE METABOLIC [id number] 04:48:00 Test Item Value Reference Range Comments TOTAL PROTEIN (BEAKER) 4.7 gm/dL 6.0-8.3 (test obcb=388) ALBUMIN (BEAKER) (test 2.7 g/dL 3.5-5.0 nbka=4036) ALKALINE PHOSPHATASE 33 U/L 40-150 (BEAKER) (test efad=808) BILIRUBIN TOTAL (BEAKER) 0.4 mg/dL 0.2-1.2 (test mygr=625) SODIUM (BEAKER) (test 145 meq/L 136-145 bcek=291) POTASSIUM (BEAKER) (test 3.7 meq/L 3.5-5.1 ezwb=748) CHLORIDE (BEAKER) (test 110 meq/L 98-107 mccj=618) CO2 (BEAKER) (test 28 meq/L 22-29 lwox=983) BLOOD UREA NITROGEN 11 mg/dL 7-21 (BEAKER) (test hubs=891) CREATININE (BEAKER) (test 0.74 mg/dL 0.57-1.25 legw=818) GLUCOSE RANDOM (BEAKER) 137 mg/dL 70-105 (test sbfj=572) CALCIUM (BEAKER) (test 8.2 mg/dL 8.4-10.2 dmxb=066) AST (SGOT) (BEAKER) (test 8 U/L 5-34 jtfu=441) ALT (SGPT) (BEAKER) (test < U/L 6-55 tzzq=842) EGFR (BEAKER) (test 76 mL/min/1.73 sq m ESTIMATED GFR IS NOT hzrt=3424) ACCURATE CREATININE CLEARANCE IN PREDICTING GLOMERULAR FILTRATION RATE. ESTIMATED GFR IS NOT APPLICABLE FOR DIALYSIS PATIENTS. PROTHROMBIN [id number] 04:40:00 Test Item Value Reference Range Comments PROTIME (BEAKER) (test wkfa=570) 23.8 seconds 11.7-14.7 INR (BEAKER) (test ozas=212) 2.1 <=5.9 RECOMMENDED COUMADIN/WARFARIN INR THERAPY RANGESSTANDARD DOSE: 2.0 - 3.0 Includes: PROPHYLAXIS forvenous thrombosis, systemic embolization; TREATMENT for venous thrombosis and/or pulmonary embolus.HIGH RISK: Target INR is 2.5-3.5 for patients with mechanical heart valves.While on warfarin.[id number] 04:29:00 Test Item Value Reference Range Comments MAGNESIUM (BEAKER) (test hukl=577) 2.0 mg/dL 1.6-2.6 CBC W/PLT COUNT & AUTO [id number] 04:11:00 Test Item Value Reference Range Comments WHITE BLOOD CELL COUNT (BEAKER) (test hlof=396) 5.8 K/ L 3.5-10.5 RED BLOOD CELL COUNT (BEAKER) (test dvyq=414) 3.18 M/ L 3.93-5.22 HEMOGLOBIN (BEAKER) (test oybo=627) 10.0 GM/DL 11.2-15.7 HEMATOCRIT (BEAKER) (test cypr=078) 31.8 % 34.1-44.9 MEAN CORPUSCULAR VOLUME (BEAKER) (test uraw=802) 100.0 fL 79.4-94.8 MEAN CORPUSCULAR HEMOGLOBIN (BEAKER) (test 31.4 pg 25.6-32.2 hnlm=881) MEAN CORPUSCULAR HEMOGLOBIN CONC (BEAKER) (test 31.4 GM/DL 32.2-35.5 mbds=835) RED CELL DISTRIBUTION WIDTH (BEAKER) (test 14.9 % 11.7-14.4 tywu=183) PLATELET COUNT (BEAKER) (test rxlk=072) 141 K/CU MM 150-450 MEAN PLATELET VOLUME (BEAKER) (test sidt=785) 11.3 fL 9.4-12.3 NUCLEATED RED BLOOD CELLS (BEAKER) (test 0 /100 WBC 0-0 zwwj=298) NEUTROPHILS RELATIVE PERCENT (BEAKER) (test 71 % pxow=531) LYMPHOCYTES RELATIVE PERCENT (BEAKER) (test 23 % kame=689) MONOCYTES RELATIVE PERCENT (BEAKER) (test 4 % rndv=141) EOSINOPHILS RELATIVE PERCENT (BEAKER) (test 0 % qkey=702) BASOPHILS RELATIVE PERCENT (BEAKER) (test 0 % obqg=664) NEUTROPHILS ABSOLUTE COUNT (BEAKER) (test 4.14 K/ L 1.56-6.13 bpzw=786) LYMPHOCYTES ABSOLUTE COUNT (BEAKER) (test 1.34 K/ L 1.18-3.74 ahpe=121) MONOCYTES ABSOLUTE COUNT (BEAKER) (test 0.23 K/ L 0.24-0.36 vqai=768) EOSINOPHILS ABSOLUTE COUNT (BEAKER) (test 0.02 K/ L 0.04-0.36 zzoq=666) BASOPHILS ABSOLUTE COUNT (BEAKER) (test 0.02 K/ L 0.01-0.08 olwz=820) IMMATURE GRANULOCYTES-RELATIVE PERCENT (BEAKER) 1 % 0-1 (test lhiw=8749) POCT-GLUCOSE [id number] 22:19:00 Test Item Value Reference Range Comments POC-GLUCOSE METER (BEAKER) 266 mg/dL 70-110 TESTED AT [facility] [address] [facility] (test dxzi=1904) [facility] [address] [id number] 17:54:00 Test Item Value Reference Range Comments POTASSIUM (BEAKER) (test gues=065) 4.2 meq/L 3.5-5.1 [id number] 17:23:00 Test Item Value Reference Range Comments MAGNESIUM (BEAKER) (test nbwx=780) 1.7 mg/dL 1.6-2.6 POCT-GLUCOSE [id number] 12:41:00 Test Item Value Reference Range Comments POC-GLUCOSE METER (BEAKER) 111 mg/dL 70-110 TESTED AT [address] (test sxop=2548) [place] [address] [id number] 12:40:00 Test Item Value Reference Range Comments POTASSIUM (BEAKER) (test dxvg=107) 3.5 meq/L 3.5-5.1 POCT-GLUCOSE [id number] 10:05:00 Test Item Value Reference Range Comments POC-GLUCOSE METER (BEAKER) 94 mg/dL 70-110 TESTED AT [address] (test howc=5301) [place] [address] COMPREHENSIVE METABOLIC [id number] 05:47:00 Test Item Value Reference Range Comments TOTAL PROTEIN (BEAKER) 4.7 gm/dL 6.0-8.3 (test ubbs=823) ALBUMIN (BEAKER) (test 2.7 g/dL 3.5-5.0 cwot=8999) ALKALINE PHOSPHATASE 31 U/L 40-150 (BEAKER) (test yllz=339) BILIRUBIN TOTAL (BEAKER) 0.5 mg/dL 0.2-1.2 (test jqqs=327) SODIUM (BEAKER) (test 147 meq/L 136-145 frur=202) POTASSIUM (BEAKER) (test 2.9 meq/L 3.5-5.1 iorf=008) CHLORIDE (BEAKER) (test 110 meq/L 98-107 ewxr=114) CO2 (BEAKER) (test 27 meq/L 22-29 tjmf=637) BLOOD UREA NITROGEN 10 mg/dL 7-21 (BEAKER) (test lfqf=387) CREATININE (BEAKER) (test 0.70 mg/dL 0.57-1.25 unjk=940) GLUCOSE RANDOM (BEAKER) 86 mg/dL 70-105 (test xudv=103) CALCIUM (BEAKER) (test 7.9 mg/dL 8.4-10.2 kpur=363) AST (SGOT) (BEAKER) (test 9 U/L 5-34 iopq=195) ALT (SGPT) (BEAKER) (test < U/L 6-55 tmxp=654) EGFR (BEAKER) (test 81 mL/min/1.73 sq m ESTIMATED GFR IS NOT nksh=3631) ACCURATE CREATININE CLEARANCE IN PREDICTING GLOMERULAR FILTRATION RATE. ESTIMATED GFR IS NOT APPLICABLE FOR DIALYSIS PATIENTS. [id number] 05:44:00 Test Item Value Reference Range Comments MAGNESIUM (BEAKER) (test zhxj=570) 2.0 mg/dL 1.6-2.6 PROTHROMBIN [id number] 05:37:00 Test Item Value Reference Range Comments PROTIME (BEAKER) (test pfff=012) 24.0 seconds 11.7-14.7 INR (BEAKER) (test jleh=148) 2.2 <=5.9 RECOMMENDED COUMADIN/WARFARIN INR THERAPY RANGESSTANDARD DOSE: 2.0 - 3.0 Includes: PROPHYLAXIS forvenous thrombosis, systemic embolization; TREATMENT for venous thrombosis and/or pulmonary embolus.HIGH RISK: Target INR is 2.5-3.5 for patients with mechanical heart valves.PROTHROMBIN TIME/[id number] 05:36: 00 Test Item Value Reference Range Comments PROTIME (BEAKER) (test jsdt=673) 24.2 seconds 11.7-14.7 INR (BEAKER) (test yfco=484) 2.2 <=5.9 RECOMMENDED COUMADIN/WARFARIN INR THERAPY RANGESSTANDARD DOSE: 2.0 - 3.0 Includes: PROPHYLAXIS forvenous thrombosis, systemic embolization; TREATMENT for venous thrombosis and/or pulmonary embolus.HIGH RISK: Target INR is 2.5-3.5 for patients with mechanical heart valves.While on warfarin.CBC W/PLT COUNT &amp ; AUTO [id number] 05:35:00 Test Item Value Reference Range Comments WHITE BLOOD CELL COUNT (BEAKER) (test qldt=990) 4.3 K/ L 3.5-10.5 RED BLOOD CELL COUNT (BEAKER) (test bdqt=355) 3.29 M/ L 3.93-5.22 HEMOGLOBIN (BEAKER) (test qjpn=589) 10.3 GM/DL 11.2-15.7 HEMATOCRIT (BEAKER) (test eijf=196) 33.2 % 34.1-44.9 MEAN CORPUSCULAR VOLUME (BEAKER) (test wbrl=067) 100.9 fL 79.4-94.8 MEAN CORPUSCULAR HEMOGLOBIN (BEAKER) (test 31.3 pg 25.6-32.2 bydo=794) MEAN CORPUSCULAR HEMOGLOBIN CONC (BEAKER) (test 31.0 GM/DL 32.2-35.5 whgi=073) RED CELL DISTRIBUTION WIDTH (BEAKER) (test 14.9 % 11.7-14.4 thot=852) PLATELET COUNT (BEAKER) (test hjri=163) 138 K/CU MM 150-450 MEAN PLATELET VOLUME (BEAKER) (test cszh=497) 11.5 fL 9.4-12.3 NUCLEATED RED BLOOD CELLS (BEAKER) (test 0 /100 WBC 0-0 klpl=603) NEUTROPHILS RELATIVE PERCENT (BEAKER) (test 66 % djyu=827) LYMPHOCYTES RELATIVE PERCENT (BEAKER) (test 27 % xuet=336) MONOCYTES RELATIVE PERCENT (BEAKER) (test 4 % krmb=779) EOSINOPHILS RELATIVE PERCENT (BEAKER) (test 1 % cyin=798) BASOPHILS RELATIVE PERCENT (BEAKER) (test 0 % dvor=913) NEUTROPHILS ABSOLUTE COUNT (BEAKER) (test 2.82 K/ L 1.56-6.13 ooxz=489) LYMPHOCYTES ABSOLUTE COUNT (BEAKER) (test 1.16 K/ L 1.18-3.74 etrx=480) MONOCYTES ABSOLUTE COUNT (BEAKER) (test 0.18 K/ L 0.24-0.36 lcrr=246) EOSINOPHILS ABSOLUTE COUNT (BEAKER) (test 0.06 K/ L 0.04-0.36 nhgd=013) BASOPHILS ABSOLUTE COUNT (BEAKER) (test 0.01 K/ L 0.01-0.08 ezjx=280) IMMATURE GRANULOCYTES-RELATIVE PERCENT (BEAKER) 1 % 0-1 (test wvzv=3897) POCT-GLUCOSE [id number] 23:56:00 Test Item Value Reference Range Comments POC-GLUCOSE METER (BEAKER) 105 mg/dL 70-110 TESTED AT [facility] [address] (test zpkt=8924) [facility] [address] TROPONIN [id number] 13:02:00 Test Item Value Reference Range Comments TROPONIN I (BEAKER) (test pwzx=009) 0.02 ng/mL 0.00-0.03 Troponin I (TnI) levels [...] NATRIURETIC PEPTIDE (BEAKER) (test 975 pg/mL 0-100 tdad=505) POCT-GLUCOSE [id number] 12:18:00 Test Item Value Reference Range Comments POC-GLUCOSE METER (BEAKER) 175 mg/dL 70-110 TESTED AT [facility] [address] [facility] (test asru=0152) [facility] [address] U/S, ABDOMINAL, [id number] 10:23:00Abdomen limited area? Add comment if clarification [...] MDReport Verified Date/Time: 01/14/2018 10:23:02 Reading Location: [address] Ortho Consult Reading Room T4, [id number] 08:42 :00 Test Item Value Reference Range Comments FREE T4 (BEAKER) (test snco=936) 0.83 ng/dL 0.70-1.48 POCT-GLUCOSE [id number] 08:37:00 Test Item Value Reference Range Comments POC-GLUCOSE METER (BEAKER) 161 mg/dL 70-110 TESTED AT [facility] [address] [facility] (test fama=4109) [facility] [address] TSH/FREE T4 IF [id number] 08:05:00 Test Item Value Reference Range Comments THYROID STIMULATING HORMONE (BEAKER) (test 0.02 uIU/mL 0.35-4.94 ydvu=492) VITAMIN B12 AND [id number] 07:42:00 Test Item Value Reference Range Comments VITAMIN B12 (BEAKER) (test kzju=108) 1276 pg/mL 213-816 FOLATE (BEAKER) (test oyiq=933) 8.8 ng/mL >=7.0 LIPID [id number] 07:14:00 Test Item Value Reference Range Comments TRIGLYCERIDES (BEAKER) (test ukur=684) 171 mg/dL CHOLESTEROL (BEAKER) (test wxra=761) 123 mg/dL HDL CHOLESTEROL (BEAKER) (test nrkl=474) 25 mg/dL LDL CHOLESTEROL CALCULATED (BEAKER) (test 64 mg/dL yhyu=219) Triglyceride Reference Range: Low Risk <150 Borderline 150- 199 High Risk 200-499 Very High Risk >=500Cholesterol Reference Range: Low Risk <200 Borderline 200-239 High Risk > 240HDL Cholesterol Reference Range: Low Risk >=60 High Risk <40LDL Cholesterol Reference Range: Optimal <100 Near Optimal 100-129 Borderline 130-159 High 160-189 Very High >=190TROPONIN [id number] 07:12:00 Test Item Value Reference Range Comments TROPONIN I (BEAKER) (test noer=982) 0.03 ng/mL 0.00-0.03 Troponin I (TnI) levels [...] acute neurological disease, and persistent tachyarrhythmia.URINALYSIS W/ [id number] 06: 35:00 Test Item Value Reference Range Comments COLOR (BEAKER) (test pvwe=803) Yellow CLARITY (BEAKER) (test tekk=945) Clear SPECIFIC GRAVITY UA (BEAKER) (test cfip=545) 1.043 1.001-1.035 PH UA (BEAKER) (test cvnr=431) 6.5 5.0-8.0 PROTEIN UA (BEAKER) (test aqtv=631) 20 mg/dL Negative GLUCOSE UA (BEAKER) (test sqss=729) 1000 mg/dL Negative KETONES UA (BEAKER) (test lkqu=054) Negative Negative BILIRUBIN UA (BEAKER) (test nufu=113) Negative Negative BLOOD UA (BEAKER) (test ifux=131) Trace Negative NITRITE UA (BEAKER) (test hksn=356) Negative Negative LEUKOCYTE ESTERASE UA (BEAKER) (test lowk=904) Negative Negative UROBILINOGEN UA (BEAKER) (test leiq=245) 0.2 mg/dL 0.2-1.0 RBC UA (BEAKER) (test suwr=806) 1 /HPF WBC UA (BEAKER) (test rvsu=109) 3 /HPF BACTERIA (BEAKER) (test yavw=617) Rare SOURCE(BEAKER) (test unrf=3294) Urine, Taylor [id number] 06:07:00 Test Item Value Reference Range Comments MAGNESIUM (BEAKER) (test lufu=651) 1.8 mg/dL 1.6-2.6 [id number] 05:32:00 Test Item Value Reference Range Comments MAGNESIUM (BEAKER) (test oxqc=321) 2.5 mg/dL 1.6-2.6 COMPREHENSIVE METABOLIC [id number] 05:32:00 Test Item Value Reference Range Comments TOTAL PROTEIN (BEAKER) 5.1 gm/dL 6.0-8.3 (test rwxh=148) ALBUMIN (BEAKER) (test 2.9 g/dL 3.5-5.0 xdfz=4933) ALKALINE PHOSPHATASE 31 U/L 40-150 (BEAKER) (test dfie=015) BILIRUBIN TOTAL (BEAKER) 0.4 mg/dL 0.2-1.2 (test ycql=613) SODIUM (BEAKER) (test 145 meq/L 136-145 wahk=779) POTASSIUM (BEAKER) (test 4.0 meq/L 3.5-5.1 mwhp=486) CHLORIDE (BEAKER) (test 110 meq/L 98-107 chfn=794) CO2 (BEAKER) (test 28 meq/L 22-29 eucg=786) BLOOD UREA NITROGEN 14 mg/dL 7-21 (BEAKER) (test mcvf=289) CREATININE (BEAKER) (test 0.71 mg/dL 0.57-1.25 wjml=827) GLUCOSE RANDOM (BEAKER) 187 mg/dL 70-105 (test roxf=930) CALCIUM (BEAKER) (test 8.1 mg/dL 8.4-10.2 jqaw=756) AST (SGOT) (BEAKER) (test 9 U/L 5-34 tvgp=046) ALT (SGPT) (BEAKER) (test 6 U/L 6-55 zmtj=072) EGFR (BEAKER) (test 79 mL/min/1.73 sq m ESTIMATED GFR IS NOT xqxu=6870) ACCURATE CREATININE CLEARANCE IN PREDICTING GLOMERULAR FILTRATION RATE. ESTIMATED GFR IS NOT APPLICABLE FOR DIALYSIS PATIENTS. PROTHROMBIN [id number] 05:10:00 Test Item Value Reference Range Comments PROTIME (BEAKER) (test ebaz=820) 25.1 seconds 11.7-14.7 INR (BEAKER) (test tgvx=374) 2.3 <=5.9 RECOMMENDED COUMADIN/WARFARIN INR THERAPY RANGESSTANDARD DOSE: 2.0 - 3.0 Includes: PROPHYLAXIS forvenous thrombosis, systemic embolization; TREATMENT for venous thrombosis and/or pulmonary embolus.HIGH RISK: Target INR is 2.5-3.5 for patients with mechanical heart valves.CBC W/PLT COUNT & AUTO [id number] 05:03:00 Test Item Value Reference Range Comments WHITE BLOOD CELL COUNT (BEAKER) (test lqse=448) 5.6 K/ L 3.5-10.5 RED BLOOD CELL COUNT (BEAKER) (test mpbr=452) 3.19 M/ L 3.93-5.22 HEMOGLOBIN (BEAKER) (test pclo=199) 10.1 GM/DL 11.2-15.7 HEMATOCRIT (BEAKER) (test mrno=494) 31.5 % 34.1-44.9 MEAN CORPUSCULAR VOLUME (BEAKER) (test xfeg=538) 98.7 fL 79.4-94.8 MEAN CORPUSCULAR HEMOGLOBIN (BEAKER) (test 31.7 pg 25.6-32.2 rrmu=575) MEAN CORPUSCULAR HEMOGLOBIN CONC (BEAKER) (test 32.1 GM/DL 32.2-35.5 vwqk=742) RED CELL DISTRIBUTION WIDTH (BEAKER) (test 14.6 % 11.7-14.4 evqe=213) PLATELET COUNT (BEAKER) (test grcs=825) 141 K/CU MM 150-450 MEAN PLATELET VOLUME (BEAKER) (test gdny=175) 11.6 fL 9.4-12.3 NUCLEATED RED BLOOD CELLS (BEAKER) (test 0 /100 WBC 0-0 ktgg=258) NEUTROPHILS RELATIVE PERCENT (BEAKER) (test 71 % xcgi=215) LYMPHOCYTES RELATIVE PERCENT (BEAKER) (test 22 % fdaj=062) MONOCYTES RELATIVE PERCENT (BEAKER) (test 5 % slhi=024) EOSINOPHILS RELATIVE PERCENT (BEAKER) (test 0 % lvxh=052) BASOPHILS RELATIVE PERCENT (BEAKER) (test 0 % fxll=038) NEUTROPHILS ABSOLUTE COUNT (BEAKER) (test 4.00 K/ L 1.56-6.13 bcqh=193) LYMPHOCYTES ABSOLUTE COUNT (BEAKER) (test 1.25 K/ L 1.18-3.74 twgp=793) MONOCYTES ABSOLUTE COUNT (BEAKER) (test 0.26 K/ L 0.24-0.36 ujhi=755) EOSINOPHILS ABSOLUTE COUNT (BEAKER) (test 0.02 K/ L 0.04-0.36 gwev=443) BASOPHILS ABSOLUTE COUNT (BEAKER) (test 0.01 K/ L 0.01-0.08 erav=719) IMMATURE GRANULOCYTES-RELATIVE PERCENT (BEAKER) 1 % 0-1 (test jtge=4232) [id number] 02:52:00 Test Item Value Reference Range Comments PROCALCITONIN (BEAKER) (test oxyw=8344) 0.41 ng/mL <0.05 SEPSIS RISK (ng/mL)Low: 0.05-0.50Intermediate: 0.51-2.00High: & gt;=2.01LACTIC ACID, VENOUS, WHOLE [id number] 02:06:00 Test Item Value Reference Range Comments LACTATE BLOOD VENOUS (2) 1.3 mmol/L 0.5-2.2 Specimen slightly hemolyzed (BEAKER) (test bybb=7229) Effective 01/07/2016: Units/Reference Range ChangeNew: 0.5-2.2 mmol/L Previous: 5 -20 mg/dLCOMPREHENSIVE METABOLIC [id number] 02:06:00 Test Item Value Reference Range Comments TOTAL PROTEIN (BEAKER) 5.2 gm/dL 6.0-8.3 (test lrld=993) ALBUMIN (BEAKER) (test 3.0 g/dL 3.5-5.0 haah=3352) ALKALINE PHOSPHATASE 31 U/L 40-150 (BEAKER) (test cdbs=496) BILIRUBIN TOTAL (BEAKER) 0.4 mg/dL 0.2-1.2 (test yyka=363) SODIUM (BEAKER) (test 143 meq/L 136-145 hkqr=291) POTASSIUM (BEAKER) (test 2.9 meq/L 3.5-5.1 fzcn=150) CHLORIDE (BEAKER) (test 109 meq/L 98-107 hsaz=132) CO2 (BEAKER) (test 27 meq/L 22-29 xjoa=274) BLOOD UREA NITROGEN 15 mg/dL 7-21 (BEAKER) (test ukhy=882) CREATININE (BEAKER) (test 0.70 mg/dL 0.57-1.25 qnmn=444) GLUCOSE RANDOM (BEAKER) 215 mg/dL 70-105 (test yjwp=270) CALCIUM (BEAKER) (test 7.9 mg/dL 8.4-10.2 fatp=960) AST (SGOT) (BEAKER) (test 10 U/L 5-34 xqef=053) ALT (SGPT) (BEAKER) (test 7 U/L 6-55 vxzr=372) EGFR (BEAKER) (test 81 mL/min/1.73 sq m ESTIMATED GFR IS NOT evzl=7492) ACCURATE CREATININE CLEARANCE IN PREDICTING GLOMERULAR FILTRATION RATE. ESTIMATED GFR IS NOT APPLICABLE FOR DIALYSIS PATIENTS. [id number] 02:04:00 Test Item Value Reference Range Comments LIPASE (BEAKER) (test ispl=510) 730 U/L 8-78 [id number] 02:04:00 Test Item Value Reference Range Comments AMYLASE (BEAKER) (test jxfr=469) 226 U/L 25-125 PROTHROMBIN [id number] 01:45:00 Test Item Value Reference Range Comments PROTIME (BEAKER) (test onnv=568) 23.9 seconds 11.7-14.7 INR (BEAKER) (test esyk=784) 2.1 <=5.9 RECOMMENDED COUMADIN/WARFARIN INR THERAPY RANGESSTANDARD DOSE: 2.0 - 3.0 Includes: PROPHYLAXIS forvenous thrombosis, systemic embolization; TREATMENT for venous thrombosis and/or pulmonary embolus.HIGH RISK: Target INR is 2.5-3.5 for patients with mechanical heart valves.[id number] 01:45:00 Test Item Value Reference Range Comments PARTIAL THROMBOPLASTIN TIME (BEAKER) (test 32.4 seconds 22.5-36.0 zyqt=421) CBC W/PLT COUNT & AUTO [id number] 01:38:00 Test Item Value Reference Range Comments WHITE BLOOD CELL COUNT (BEAKER) (test cdtx=593) 4.9 K/ L 3.5-10.5 RED BLOOD CELL COUNT (BEAKER) (test hinb=372) 3.21 M/ L 3.93-5.22 HEMOGLOBIN (BEAKER) (test wqgu=199) 10.2 GM/DL 11.2-15.7 HEMATOCRIT (BEAKER) (test yjjr=619) 31.6 % 34.1-44.9 MEAN CORPUSCULAR VOLUME (BEAKER) (test kxal=816) 98.4 fL 79.4-94.8 MEAN CORPUSCULAR HEMOGLOBIN (BEAKER) (test 31.8 pg 25.6-32.2 dnlo=312) MEAN CORPUSCULAR HEMOGLOBIN CONC (BEAKER) (test 32.3 GM/DL 32.2-35.5 rxom=243) RED CELL DISTRIBUTION WIDTH (BEAKER) (test 14.4 % 11.7-14.4 rekb=378) PLATELET COUNT (BEAKER) (test aszn=371) 137 K/CU MM 150-450 MEAN PLATELET VOLUME (BEAKER) (test umru=535) 11.9 fL 9.4-12.3 NUCLEATED RED BLOOD CELLS (BEAKER) (test 0 /100 WBC 0-0 ovyl=058) NEUTROPHILS RELATIVE PERCENT (BEAKER) (test 76 % josl=356) LYMPHOCYTES RELATIVE PERCENT (BEAKER) (test 19 % doln=524) MONOCYTES RELATIVE PERCENT (BEAKER) (test 4 % romv=424) EOSINOPHILS RELATIVE PERCENT (BEAKER) (test 0 % dcdb=289) BASOPHILS RELATIVE PERCENT (BEAKER) (test 0 % epqp=273) NEUTROPHILS ABSOLUTE COUNT (BEAKER) (test 3.73 K/ L 1.56-6.13 dvkp=065) LYMPHOCYTES ABSOLUTE COUNT (BEAKER) (test 0.92 K/ L 1.18-3.74 vbld=852) MONOCYTES ABSOLUTE COUNT (BEAKER) (test 0.21 K/ L 0.24-0.36 myby=998) EOSINOPHILS ABSOLUTE COUNT (BEAKER) (test 0.00 K/ L 0.04-0.36 mxus=965) BASOPHILS ABSOLUTE COUNT (BEAKER) (test 0.01 K/ L 0.01-0.08 afdu=136) IMMATURE GRANULOCYTES-RELATIVE PERCENT (BEAKER) 1 % 0-1 (test odsb=0594)
[2018-09-10 13:43] LABS: Urine Blood TRACE (NEG); Urine Glucose NEGATIVE (NEG); Urine Protein NEGATIVE (NEG); Urine Specific Gravity 1.025 (1.005-1.030)
[2018-09-10 13:59] LABS: Urine Bacteria <20 /HPF (<20); Urine Culture Reflex Order NOT NEEDED; Urine RBC <5 /HPF (NONE SEEN)
[2018-09-10 14:22] LABS: Absolute Lymphocytes (CBC) 1.9 K/uL (0.7-4.9); Absolute Monocytes 0.4 K/uL (0.1-1.3); Absolute Neutrophil 3.4 K/uL (1.8-8.0); Basophils % 0.3 % (0-1.3); Hematocrit 39.8 % (36.0-45.0); MPV 9.6 fL (7.6-11.3); Monocytes % 6.5 % (3.3-12.3); RBC Red Blood Cell Count 4.34 M/uL (3.86-4.86)
[2018-09-10] MEDS ORDERED: NA CHLORIDE 0.9% 1,000 ML ONE (14:22)
[2018-09-10] MEDS ORDERED: CEFTRIAXONE/SWI 1gm 1 GM/10 ML SYR ONE (14:22)
[2018-09-10 14:31] LABS: Protime INR 1.49
--- NOTE | 2018-09-10 14:31 | RAD REPORT ---
EXAM DESCRIPTION: CT - Stone Protocol - 09/10/2018 2:22 pm CLINICAL HISTORY: Flank pain. ABD PAIN COMPARISON: <Comparisons> TECHNIQUE: Axial images were obtained without oral or IV contrast. Lack of contrast limits solid org an and vascular assessment. The bcfop-mk-zjsj spans the entirety of the system partially obscuring uppermost abdomen and lung bases. Coronal reformatted images were obtained and reviewed. All CT scans are performed using dose optimization technique as appropriate and may include automated exposure control or mA/KV adjustment according to patient size. FINDINGS: The lower lung tafoya are clear. Imaged portions of the liver and spleen show no suspicious findings on non-contrast imaging.Multiple liver cysts are present. The pancreas and adrenal glands are normal. No pathologic lymphadenopathy in the abdomen or pelvis. No urinary tract stones or obstructive uropathy. No bowel obstruction, free air, free fluid or abscess. Scattered colonic diverticulosis is present wi thout diverticulitis.The appendix is not identified as a discrete structure, however, no secondary fi ndings of appendicitis are identified. Prominent multilevel degenerative changes throughout the lumbar spine. 6 mm anterolisthesis of L4 on 5 is seen. IMPRESSION: No urinary tract stones or obstructive uropathy. Scattered colonic diverticulosis without diverticulitis.
--- NOTE | 2018-09-10 14:39 | RAD REPORT ---
EXAM DESCRIPTION: RAD - Chest Single View - 09/10/2018 2:27 pm CLINICAL HISTORY: DYSPNEA Chest pain. COMPARISON: Chest Single View dated 01/13/2018; Chest Single View dated 01/11/2018; Chest Single View d ated 01/11/2018; Chest Single View dated 01/10/2018 FINDINGS: Portable technique limits examination quality. The lungs are grossly clear. The heart is normal in size. No displaced fractures. IMPRESSION: No acute intrathoracic process suspected.
[2018-09-10 14:48] LABS: ALT/SGPT 19 U/L (12-78); AST/SGOT 16 U/L (15-37); Albumin 3.7 g/dL (3.4-5.0); Alkaline Phosphatase 90 U/L (45-117); BUN Blood Urea Nitrogen 17 mg/dL (7-18); Bicarbonate 24 mmol/L (21-32); Bilirubin Direct 0.2 mg/dL (0-0.2); Bilirubin Total 0.7 mg/dL (0.2-1.0); Glucose Level 101 mg/dL (74-106); Lipase 282 U/L (73-393); Magnesium 1.9 mg/dL (1.8-2.4); NT PRO-BNP 477 pg/mL (<450); Potassium 3.7 mmol/L (3.5-5.1); Protein, Total 7.3 g/dL (6.4-8.2); Sodium Level 142 mmol/L (136-145); Troponin (Emerg Dept Use Only) < 0.02 ng/mL (0.0-0.045)
--- NOTE | 2018-09-10 15:30 | ER ---
Nurse's Notes [facility] Name: Emelia Payan Age: 78 yrs Sex: Female : 1940 Arrival Date: 09/10/2018 Time: 13:09 Bed 16 Private MD: Dany Iraheta Diagnosis: Dysuria;Weakness Presentation: 09/10 13:11 Presenting complaint: Patient states: pain with urination since last night, low grade iw temp, chills, nausea, no vomiting, pain to left hip. Transition of care: patient was not received from another setting of care. Onset of symptoms was September 09, 2018. Risk Assessment: Do you want to hurt yourself or someone else? Patient reports no desire to harm self or others. Initial Sepsis Screen: Does the patient meet any 2 criteria? No. Patient's initial sepsis screen is negative. Does the patient have a suspected source of infection? No. Patient's initial sepsis screen is negative. Care prior to arrival: None. 13:11 Method Of Arrival: Wheelchair iw 13:11 Acuity: EDIS 3 iw Triage Assessment: 13:19 General: Appears in no apparent distress. uncomfortable, Behavior is calm, cooperative, hj appropriate for age. Pain: Complains of pain in pelvis, R hip area. Historical: - Allergies: 13:16 Cipro; iw 13:16 Xarelto; iw - Home Meds: 13:16 amlodipine 10 mg tab once daily [Active]; Ativan 0.5 mg Oral tab [Active]; atorvastatin iw 10 mg Oral tab 1 tab once daily [Active]; cholecalciferol (vitamin D3) 5,000 unit Oral cap daily [Active]; Creon 12,000-38,000 -60,000 unit Oral cpDR 3 times per day [Active]; Dexilant 60 mg Oral CpDB 1 cap once daily [Active]; fenofibrate 48 mg Oral once daily [Active]; gabapentin 600 mg Oral tab 1 tab 3 times per day [Active]; losartan 100 mg Oral tab 1 tab once daily [Active]; glipizide 2.5 mg Oral tr24 once daily [Active]; hydrocortisone 40 mg Oral tab 4 tabs 2 times per day [Active]; levothyroxine 112 mcg oral tab once daily [Active]; hydrocortisone 0.5 % Topical crea 3 times per day [Active]; liothyronine 5 mcg Oral tab 1 tab once daily [Active]; warfarin 3 mg oral tab once daily [Active]; sotalol 120 mg Oral tab 1 tab 2 times per day [Active]; aspirin 81 mg Oral TbEC 1 tab once daily [Active]; omeprazole 20 mg Oral cpDR 1 cap once daily [Active]; - PMHx: 13:16 adrenal insuficiency; CHF; Diabetes - IDDM; DVT; Hyperlipidemia; Hypertension; iw Hypothyroidism; Pancreatitis; - PSHx: 13:16 pituitary gland removal; Lumpectomy; Hysterectomy; Carpal Tunnel Repair; DVT repair; iw - Immunization history:: Adult Immunizations up to date. - Social history:: Smoking status: Patient/guardian denies using tobacco. - Ebola Screening: : Patient negative for fever greater than or equal to 101.5 degrees Fahrenheit, and additional compatible Ebola Virus Disease symptoms Patient denies exposure to infectious person Patient denies travel to an Ebola-affected area in the 21 days before illness onset No symptoms or risks identified at this time. - Family history:: not pertinent. Screenin:19 Abuse screen: Denies threats or abuse. Denies injuries from another. Nutritional hj screening: No deficits noted. Tuberculosis screening: No symptoms or risk factors identified. Fall Risk None identified. Assessment: 13:20 General: Appears in no apparent distress. uncomfortable, Behavior is calm, cooperative, hj appropriate for age. Pain: Complains of pain in pelvis and R hip area. Neuro: Level of Consciousness is awake, alert, obeys commands, Oriented to person, place, time, situation, Appropriate for age. Cardiovascular: Capillary refill < 3 seconds Patient's skin is warm and dry. Respiratory: Airway is patent Respiratory effort is even, unlabored, Respiratory pattern is regular, symmetrical. GI: No signs and/or symptoms were reported involving the gastrointestinal system. : Reports burning with urination. :. EENT: No signs and/or symptoms were reported regarding the EENT system. Derm: No signs and/or symptoms reported regarding the dermatologic system. Musculoskeletal: No signs and/or symptoms reported regarding the musculoskeletal system. 15:50 Reassessment: Patient and/or family updated on plan of care and expected duration. Pain tl3 level reassessed. Patient is alert, oriented x 3, equal unlabored respirations, skin warm/dry/pink. pt ready for discharge, no needs at this time. Vital Signs: 13:16 BP 149 / 77; Pulse 67; Resp 16; Temp 99.2; Pulse Ox 97% on R/A; Weight 79.38 kg; Height iw 5 ft. 4 in. (162.56 cm); Pain 4/10; 15:50 BP 136 / 108; Pulse 64; Resp 16; Pulse Ox 98% ; tl3 13:16 Body Mass Index 30.04 (79.38 kg, 162.56 cm) iw ED Course: 13:09 Patient arrived in ED. sb2 13:10 Dany Iraheta DO is Private Physician. sb2 13:12 Triage completed. iw 13:16 Arm band placed on. iw 13:18 Arash Vazquez, RN is Primary Nurse. hj 13:19 Patient has correct armband on for positive identification. Bed in low position. Call hj light in reach. Side rails up X 1. Adult w/ patient. 13:33 Jose Elias Marquez MD is Attending Physician. gilbreto 13:44 Urine Microscopic Only Sent. hj 13:44 Urine Culture Sent. hj 14:00 Initial lab(s) drawn, by nd, sent to lab. Urine collected: clean catch specimen. hj Inserted saline lock: 22 gauge in left antecubital area, using aseptic technique. Blood collected. 14:22 CT Stone Protocol In Process Unspecified. EDMS 14:27 XRAY Chest (1 view) In Process Unspecified. EDMS 15:29 Dany Iraheta DO is Referral Physician. gilberto 15:50 No provider procedures requiring assistance completed. IV discontinued, intact, tl3 bleeding controlled, No redness/swelling at site. Pressure dressing applied. Administered Medications: 14:31 Drug: NS 0.9% 1000 ml Route: IV; Rate: 125 ml/hr; Site: left antecubital; hj 14:31 Drug: Rocephin - (cefTRIAXone) 1 grams Route: IVPB; Infused Over: 30 mins; Site: left hj antecubital; 15:49 Follow up: IV Status: Completed infusion; IV Intake: 10ml tl3 15:47 Drug: Augmentin 875 mg Route: PO; tl3 15:48 Follow up: Response: Medication administered at discharge. tl3 15:48 Drug: Solu-CORTEF 100 mg Route: IVP; Infused Over: 2 mins; Site: right antecubital; tl3 15:49 Follow up: Response: Medication administered at discharge. tl3 15:48 Drug: Coumadin 5 mg Route: PO; tl3 15:49 Follow up: Response: Medication administered at discharge. tl3 Intake: 15:49 IV: 10ml; Total: 10ml. tl3 Outcome: 15:30 Discharge ordered by MD. macias 15:50 Discharged to home via wheelchair. tl3 15:50 Condition: stable 15:50 Discharge instructions given to patient, family, Instructed on discharge instructions, follow up and referral plans. medication usage, Demonstrated understanding of instructions, follow-up care, medications, Prescriptions given X 2. 16:00 Patient left the ED. tl3 Signatures: Dispatcher [employer] EDMS Jose Elias Marquez MD MD cha Williams, Irene, RN Arash Patricia RN Denise Powell2 Nena Lujan RN RN tl3
--- NOTE | 2018-09-10 15:30 | EDPHYS ---
Physician Documentation [facility] Name: Emelia Payan Age: 78 yrs Sex: Female : 1940 Arrival Date: 09/10/2018 Time: 13:09 Bed 16 Private MD: Dany Iraheta ED Physician Jose Elias Marquez HPI: 09/10 13:54 This 78 yrs old Female presents to ER via Wheelchair with complaints of gilberto Urinary Problem. 13:54 The patient has shortness of breath at rest. Onset: The symptoms/episode began/occurred gilberto 2 day(s) ago. Duration: The symptoms are continuous, and are steadily getting worse. The patient's shortness of breath has no apparent modifying factors. The patient presents with urinary symptoms, dysuria, frequency, hesitancy, incontinence, urinary retention. Onset: The symptoms/episode began/occurred 2 day(s) ago. Modifying factors: The symptoms are alleviated by nothing, the symptoms are aggravated by nothing. Associated signs and symptoms: The patient has no apparent associated signs or symptoms. Historical: - Allergies: 13:16 Cipro; iw 13:16 Xarelto; iw - Home Meds: 13:16 amlodipine 10 mg tab once daily [Active]; Ativan 0.5 mg Oral tab [Active]; atorvastatin iw 10 mg Oral tab 1 tab once daily [Active]; cholecalciferol (vitamin D3) 5,000 unit Oral cap daily [Active]; Creon 12,000-38,000 -60,000 unit Oral cpDR 3 times per day [Active]; Dexilant 60 mg Oral CpDB 1 cap once daily [Active]; fenofibrate 48 mg Oral once daily [Active]; gabapentin 600 mg Oral tab 1 tab 3 times per day [Active]; losartan 100 mg Oral tab 1 tab once daily [Active]; glipizide 2.5 mg Oral tr24 once daily [Active]; hydrocortisone 40 mg Oral tab 4 tabs 2 times per day [Active]; levothyroxine 112 mcg oral tab once daily [Active]; hydrocortisone 0.5 % Topical crea 3 times per day [Active]; liothyronine 5 mcg Oral tab 1 tab once daily [Active]; warfarin 3 mg oral tab once daily [Active]; sotalol 120 mg Oral tab 1 tab 2 times per day [Active]; aspirin 81 mg Oral TbEC 1 tab once daily [Active]; omeprazole 20 mg Oral cpDR 1 cap once daily [Active]; - PMHx: 13:16 adrenal insuficiency; CHF; Diabetes - IDDM; DVT; Hyperlipidemia; Hypertension; iw Hypothyroidism; Pancreatitis; - PSHx: 13:16 pituitary gland removal; Lumpectomy; Hysterectomy; Carpal Tunnel Repair; DVT repair; iw - Immunization history:: Adult Immunizations up to date. - Social history:: Smoking status: Patient/guardian denies using tobacco. - Ebola Screening: : Patient negative for fever greater than or equal to 101.5 degrees Fahrenheit, and additional compatible Ebola Virus Disease symptoms Patient denies exposure to infectious person Patient denies travel to an Ebola-affected area in the 21 days before illness onset No symptoms or risks identified at this time. - Family history:: not pertinent. ROS: 13:56 Constitutional: Negative for fever, chills, and weight loss, Eyes: Negative for injury, gilberto pain, redness, and discharge, ENT: Negative for injury, pain, and discharge, Neck: Negative for injury, pain, and swelling, Cardiovascular: Negative for chest pain, palpitations, and edema, Respiratory: Negative for shortness of breath, cough, wheezing, and pleuritic chest pain, Back: Negative for injury and pain, : Negative for injury, bleeding, discharge, and swelling, MS/Extremity: Negative for injury and deformity, Skin: Negative for injury, rash, and discoloration, Neuro: Negative for headache, weakness, numbness, tingling, and seizure, Psych: Negative for depression, anxiety, suicide ideation, homicidal ideation, and hallucinations, Allergy/Immunology: Negative for hives, rash, and allergies, Endocrine: Negative for neck swelling, polydipsia, polyuria, polyphagia, and marked weight changes, Hematologic/Lymphatic: Negative for swollen nodes, abnormal bleeding, and unusual bruising. 13:56 Abdomen/GI: Positive for abdominal pain, of the suprapubic area. Exam: 13:56 Constitutional: This is a well developed, well nourished patient who is awake, alert, gilberto and in no acute distress. Head/Face: Normocephalic, atraumatic. Eyes: Pupils equal round and reactive to light, extra-ocular motions intact. Lids and lashes normal. Conjunctiva and sclera are non-icteric and not injected. Cornea within normal limits. Periorbital areas with no swelling, redness, or edema. ENT: Nares patent. No nasal discharge, no septal abnormalities noted. Tympanic membranes are normal and external auditory canals are clear. Oropharynx with no redness, swelling, or masses, exudates, or evidence of obstruction, uvula midline. Mucous membranes moist. Neck: Trachea midline, no thyromegaly or masses palpated, and no cervical lymphadenopathy. Supple, full range of motion without nuchal rigidity, or vertebral point tenderness. No Meningismus. Chest/axilla: Normal chest wall appearance and motion. Nontender with no deformity. No lesions are appreciated. Cardiovascular: Regular rate and rhythm with a normal S1 and S2. No gallops, murmurs, or rubs. Normal PMI, no JVD. No pulse deficits. Respiratory: Lungs have equal breath sounds bilaterally, clear to auscultation and percussion. No rales, rhonchi or wheezes noted. No increased work of breathing, no retractions or nasal flaring. Abdomen/GI: Soft, non-tender, with normal bowel sounds. No distension or tympany. No guarding or rebound. No evidence of tenderness throughout. Back: No spinal tenderness. No costovertebral tenderness. Full range of motion. Female : Normal external genitalia. Skin: Warm, dry with normal turgor. Normal color with no rashes, no lesions, and no evidence of cellulitis. Vital Signs: 13:16 BP 149 / 77; Pulse 67; Resp 16; Temp 99.2; Pulse Ox 97% on R/A; Weight 79.38 kg; Height iw 5 ft. 4 in. (162.56 cm); Pain 4/10; 15:50 BP 136 / 108; Pulse 64; Resp 16; Pulse Ox 98% ; tl3 13:16 Body Mass Index 30.04 (79.38 kg, 162.56 cm) MDM: 13:33 Patient medically screened. [facility] 13:57 Data reviewed: vital signs, nurses notes, lab test result(s), EKG, radiologic studies, [facility] CT scan, plain films. 09/10 13:25 Order name: Urine Microscopic Only; Complete Time: 14:40 09/10 13:25 Order name: Urine Culture 09/10 13:40 Order name: Urine Dipstick--Ancillary (enter results); Complete Time: 13:52 ag 09/10 13:54 Order name: Basic Metabolic Panel [facility] 09/10 13:54 Order name: CBC with Diff [facility] 09/10 13:54 Order name: LFT's [facility] 09/10 13:54 Order name: Magnesium [facility] 09/10 13:54 Order name: NT PRO-BNP; Complete Time: 15:21 gilberto 09/10 13:54 Order name: PT-INR; Complete Time: 14:40 gilberto 09/10 13:54 Order name: Troponin (emerg Dept Use Only); Complete Time: 15:21 gilberto 09/10 13:54 Order name: Lipase; Complete Time: 15:21 gilberto 09/10 13:54 Order name: D-Dimer; Complete Time: 14:40 gilberto 09/10 13:54 Order name: Basic Metabolic Panel; Complete Time: 15:21 EDMS 09/10 13:54 Order name: CBC with Automated Diff; Complete Time: 14:40 EDMS 09/10 13:25 Order name: Urine Dipstick-Ancillary (obtain specimen); Complete Time: 13:44 09/10 13:54 Order name: XRAY Chest (1 view); Complete Time: 15:21 gilberto 09/10 13:54 Order name: EKG; Complete Time: 13:55 gilberto 09/10 13:54 Order name: Cardiac monitoring; Complete Time: 13:54 [facility] 09/10 13:54 Order name: EKG - Nurse/Tech; Complete Time: 14:33 [facility] 09/10 13:54 Order name: IV Saline Lock; Complete Time: 14:12 gilberto 09/10 13:54 Order name: Labs collected and sent; Complete Time: 14:12 [facility] 09/10 13:54 Order name: O2 Per Protocol; Complete Time: 13:55 [facility] 09/10 13:54 Order name: CT Stone Protocol; Complete Time: 14:40 gilberto 09/10 13:54 Order name: Liver (Hepatic) Function; Complete Time: 15:21 EDMS 09/10 13:54 Order name: Magnesium; Complete Time: 15:21 EDMS 09/10 13:54 Order name: O2 Sat Monitoring; Complete Time: 13:55 gilberto Administered Medications: 14:31 Drug: NS 0.9% 1000 ml Route: IV; Rate: 125 ml/hr; Site: left antecubital; hj 14:31 Drug: Rocephin - (cefTRIAXone) 1 grams Route: IVPB; Infused Over: 30 mins; Site: left hj antecubital; 15:49 Follow up: IV Status: Completed infusion; IV Intake: 10ml tl3 15:47 Drug: Augmentin 875 mg Route: PO; tl3 15:48 Follow up: Response: Medication administered at discharge. tl3 15:48 Drug: Solu-CORTEF 100 mg Route: IVP; Infused Over: 2 mins; Site: right antecubital; tl3 15:49 Follow up: Response: Medication administered at discharge. tl3 15:48 Drug: Coumadin 5 mg Route: PO; tl3 15:49 Follow up: Response: Medication administered at discharge. tl3 Disposition: 09/10/18 15:30 Discharged to Home. Impression: Dysuria, Weakness. - Condition is Stable. - Discharge Instructions: Dysuria. - Prescriptions for Augmentin 875- 125 mg Oral Tablet - take 1 tablet by ORAL route every 12 hours for 7 days; 14 tablet. Pyridium 200 mg Oral Tablet - take 1 tablet by ORAL route every 8 hours for 3 days; 9 tablet. - Medication Reconciliation Form, Thank You Letter, Antibiotic Education, Prescription Opioid Use form. - Follow up: Dany Iraheta DO; When: 2 - 3 days; Reason: Recheck today's complaints, Continuance of care, Re-evaluation by your physician. - Problem is new. - Symptoms have improved. Signatures: Dispatcher [employer] EDMT Jose Elias Marquez MD MD cha Williams, Irene, RN RN Arash Vazquez RN RN hj Lowrey, Tammy, RN RN tl3 Corrections: (The following items were deleted from the chart) 15:31 15:30 09/10/2018 15:30 Discharged to Home. Impression: Dysuria. Condition is Stable. gilberto Forms are Medication Reconciliation Form, Thank You Letter, Antibiotic Education, Prescription Opioid Use. Follow up: Dany Iraheta; When: 2 - 3 days; Reason: Recheck today's complaints, Continuance of care, Re-evaluation by your physician. Problem is new. Symptoms have improved. gilberto 16:00 15:31 09/10/2018 15:30 Discharged to Home. Impression: Dysuria; Weakness. Condition is tl3 Stable. Discharge Instructions: Dysuria. Prescriptions for Augmentin 875-125 mg Oral Tablet - take 1 tablet by ORAL route every 12 hours for 7 days; 14 tablet, Pyridium 200 mg Oral Tablet - take 1 tablet by ORAL route every 8 hours for 3 days; 9 tablet. and Forms are Medication Reconciliation Form, Thank You Letter, Antibiotic Education, Prescription Opioid Use. Follow up: Dany Iraheta; When: 2 - 3 days; Reason: Recheck today's complaints, Continuance of care, Re-evaluation by your physician. Problem is new. Symptoms have improved. gilberto
[2018-09-10] MEDS ORDERED: HYDROCORTISONE SUC 100 MG INJ ONE (15:50)
[2018-09-10] MEDS ORDERED: AMOX/K CLAV 875 MG TAB ONE (15:51)
[2018-09-10] MEDS ORDERED: WARFARIN SODIUM 5 MG TAB ONE (15:51)
[2018-09-10 16:04] VITALS: TEMP 99.2
[2018-09-10 16:06] VITALS: BP 136/108; O2SAT 98
--- NOTE | 2018-09-11 06:26 | EKG ---
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
== END 2018-09-10 16:00 | disposition home or self-care (01) ==
LOC: ER 13:03
DX: R30.0 Dysuria (principal); R53.1 Weakness; E27.40 Unspecified adrenocortical insufficiency; I11.0 Hypertensive heart disease with heart failure; I50.9 Heart failure, unspecified; E11.9 Type 2 diabetes mellitus without complications; E78.5 Hyperlipidemia, unspecified; E03.9 Hypothyroidism, unspecified; Z79.01 Long term (current) use of anticoagulants; Z79.82 Long term (current) use of aspirin; Z79.84 Long term (current) use of oral hypoglycemic drugs; Z79.899 Other long term (current) drug therapy; Z86.718 Personal history of other venous thrombosis and embolism
CPT/HCPCS: 36415; 71045; 74176; 76377; 80048; 80076; 83690; 83735; 83880; 84484; 85025; 85379; 85610; 87088; 93005; 96365; 96375; 99284; J0696; J1720; J7030; 81003; 81015; 87086

== ENCOUNTER 2018-09-26 09:20 | Emergency (ER) | payer OTHER ==
--- OUTSIDE RECORDS SUMMARY | 2018-09-26 09:25 | XMS REPORT | Clinical Summary ---
:1940 Author Organization [facility] Address [address] [place] [address] Care Team Providers Name Role Phone Unavailable [...] Gastroenterology Marc Fernandez MD 03/14/2018 Surgery Gastroenterology [facility] UPPER ENDOSCOPY,BIOPSY [facility] 03/14/2018 Hospital Gastroenterology [facility] Encounter [facility] 03/13/2018 Hospital Pre-Admission Testing [facility] Encounter [facility] Phone 01/13/2018 Hospital Intensive Care Samaria [...] Medicine Samaria Seals Tachycardia MD Natanael after 09/25/2017 Family History Medical History Relation Name Comments [...] CULTURE Routine 01/14/2018 1:26 AM CDT after 09/25/2017 Results REPORT OF PROCEDURE - ENDOSCOPY URL (03/14/2018 12:19 PM CDT) Narrative Performed At POC-Glucose meter (03/14/2018 11:55 AM CDT)Only the most recent of17 resultswithin the time period is included. POC-Glucose Meter 75Comment: TESTED AT 70 - 110 mg/dL [facility] [address] [facility] [address] Specimen Blood Performing Organization Address City/State/Zipcode Phone Number [place] [id number] [place], [place] [id number] [phone] CENTER Tissue Exam (03/14/2018 11:15 AM CDT) Case Report Surgical Pathology Report Case: [id number] [facility] Authorizing Provider:Luiz Hayesected: 03/14/2018 1115 [facility] Ordering Location: [facility] Endoscopy Received: 03/14/2018 1351 Services Pathologist: Mara Barboza MD Specimens: A) - Polyp, Duodenum B) - Stomach,Antrum, bx C) - Biopsy, Gastric, gastric body D) - Biopsy, Esophagus, random ADDENDUM THIS ADDENDUM IS ISSUED TO REPORT THE RESULT OF IMMUNOHISTOCHEMICAL STUDY FOR HELICOBACTER PYLORI OM SPECIMEN B: [facility] - NEGATIVE [facility] CPT CODE: 93663 DIAGNOSIS A. DUODENUM, ENDOSCOPIC POLYPECTOMY: [facility] - COMPATIBLE WITH PEPTIC DUODENITIS [facility] - NO FEATURES OF CELIAC DISEASE SEEM [...] MALIGNANCY SEEN Signing Pathologist Direct Phone Line: [phone] CPT Code(s) 26280 X 4; 28528 X 2 [facility] SPECIMEN SOURCE A. Polyp, duodenum. B. Stomach [facility] antrum. C. Biopsy, gastric, [facility] description gastric body. D. Biopsy, esophagus, description random GROSS DESCRIPTION Part A. Received in formalin, labeled "polyp, duodenum", is a 0.5 x 0.4 x 0.2 cm polypoid shaped brown-chavez fragment of soft tissue. The base is inked green, and the polyp is bisected and submitted entirely in one cassette (A1). [facility] Part B. Received in formalin labeled "stomach, [...] is incorporated in the diagnostic report above: [facility] WARTHIN-STARRY X 2 [facility] Specimen Tissue - Polyp, Duodenum Performing Organization Address City/State/Zipcode Phone Number [facility] [address] [place] [address] CENTER EKG-SCANNED (01/20/2018 3:11 PM CDT) Narrative Performed At RHYTHM STRIP - SCAN (01/20/2018 3:11 PM CDT) Narrative Performed At ECHOCARDIOGRAM REPORT - SCAN (01/19/2018 2:21 PM CDT) Narrative Performed At 2D Echo W/Doppler(CW/PW/Color) (01/18/2018 1:59 PM CDT) Ejection Fraction [facility] ECHO [facility] Narrative Performed At Transthoracic Echocardiography Report (TTE) [facility] ECHO [facility]ART[facility] Demographics Patient NameDANA PAYAN Date of Study 01/18/2018 GenderFemale Visit [id number] [place] Number [id number] Number Date of 1940 Referring Physician MORENA James Age 77 year(s) Assisted Living Home Director Agustín Stevenson [facility] Conveyor Worker Stewart Nguyen MD Physician Procedure Type of [...] of Study 01/18/2018 Gender Female Visit Number [id number] Race Unknown Room Number 7106 Number Date of 1940 Referring Physician MORENA James Age 77 year(s) Assisted Living Home Director Agustín Stevenson [facility] Conveyor Worker Stewart Velasco Interpreting Alvaro Nguyen MD Physician [...] included. WBC 4.8 3.5 - 10.5 K/L [facility] RBC 3.28 (L) 3.93 - 5.22 M/L [facility] Hemoglobin 10.4 (L) 11.2 - 15.7 GM/DL [facility] Hematocrit 32.7 (L) 34.1 - 44.9 % [facility] MCV 99.7 (H) 79.4 - 94.8 fL [facility] MCH 31.7 25.6 - 32.2 pg [facility] MCHC 31.8 (L) 32.2 - 35.5 GM/DL [facility] RDW 14.7 (H) 11.7 - 14.4 % [facility] Platelets 141 (L) 150 - 450 K/CU MM [facility] MPV 11.2 9.4 - 12.3 fL [facility] nRBC 0 0 - 0 /100 WBC [facility] % Neutros 67 % [facility] % Lymphs 26 % [facility] % Monos 5 % [facility] % Eos 1 % [facility] % Baso 0 % [facility] # Neutros 3.21 1.56 - 6.13 K/L [facility] # Lymphs 1.24 1.18 - 3.74 K/L [facility] # Monos 0.23 (L) 0.24 - 0.36 K/L [facility] # Eos 0.06 0.04 - 0.36 K/L [facility] # Baso 0.02 0.01 - 0.08 K/L [facility] Immature Granulocytes-Relative 1 0 - 1 % [facility] Specimen Blood - Arm, Left Performing Organization Address City/State/Zipcode Phone Number [facility] [address] [place] [address] CENTER Prothrombin time/INR (01/18/2018 3:49 AM CDT)Only the most recent of7 resultswithin the time period is included. Protime 23.7 (H) 11.7 - 14.7 seconds [facility] INR 2.1 <=5.9 [facility] Specimen Blood - Arm, Left Narrative Performed At [facility] RECOMMENDED COUMADIN/WARFARIN INR THERAPY RANGES STANDARD DOSE: 2.0 - 3.0 Includes: PROPHYLAXIS for venous thrombosis, systemic embolization; TREATMENT for venous thrombosis and/or pulmonary embolus. HIGH RISK: Target INR is 2.5-3.5 for patients with mechanical heart valves. Performing Organization Address City/[facility]/Zipcode Phone Number [place] [id number] [place] [address] [phone] [place] Magnesium (01/18/2018 3:49 AM CDT)Only the most recent of8 resultswithin the time period is included. Magnesium 1.7 1.6 - 2.6 mg/dL [facility] Specimen Blood - Arm, Left Performing Organization Address [facility] Phone Number [address] [address] [place] Comprehensive metabolic panel (01/18/2018 3:49 AM CDT)Only the most recent of6 resultswithin the time period is included. Protein, Total 5.2 (L) 6.0 - 8.3 gm/dL [facility] Albumin 3.0 (L) 3.5 - 5.0 g/dL [facility] Alkaline Phosphatase 39 (L) 40 - 150 U/L [facility] Total Bilirubin 0.4 0.2 - 1.2 mg/dL [facility] Sodium 145 136 - 145 meq/L [facility] Potassium 3.6 3.5 - 5.1 meq/L [facility] Chloride 109 (H) 98 - 107 meq/L [facility] CO2 28 22 - 29 meq/L [facility] BUN 8 7 - 21 mg/dL [facility] Creatinine 0.70 0.57 - 1.25 mg/dL [facility] Glucose 107 (H) 70 - 105 mg/dL [facility] Calcium 8.4 8.4 - 10.2 mg/dL [facility] AST 9 5 - 34 U/L [facility] ALT <6 (L) 6 - 55 U/L [facility] EGFR 81Comment: ESTIMATED GFR mL/min/1.73 sq m [facility] IS NOT ACCURATE [facility] CREATININE CLEARANCE IN PREDICTING GLOMERULAR FILTRATION RATE. ESTIMATED GFR IS NOT APPLICABLE FOR DIALYSIS PATIENTS. Specimen Blood - Arm, Left Performing Organization Address [facility] Phone Number [facility] [address] [place] [address] [phone] CENTER ECG 12 lead (01/17/2018 7:28 AM CDT)Only the most recent of2 resultswithin the time period is included. Narrative Performed At Ventricular Rate 62 BPM GE MUSE Atrial Rate 62 BPM P-R Interval 126 ms QRS Duration 72 ms Q-T Interval 392 ms QTC Calculation(Bazett) 397 ms P [place] 43 degrees R [place] 0 degrees T [place] 4 degrees Normal sinus rhythm Normal ECG [...] 392 ms QTC Calculation(Bazett) 397 ms P [place] 43 degrees R [place] 0 degrees T [place] 4 degrees Normal sinus rhythm Normal ECG When compared with ECG of 14-JAN-2018 07:47, Sinus rhythm has replaced Atrial fibrillation Vent. rate has decreased BY 67 BPM Confirmed by Myriam CABELLO BASANT ([id number]) on 01/17/2018 9:57:49 PM Performing Organization Address [facility] Hospital[facility]d Phone Number [employer] MUSE T3, free (01/17/2018 3:19 AM CDT) T3, Free 1.31 (L) 1.71 - 3.71 pg/mL [facility] Specimen Blood - Central Venous Line Performing Organization Address City/[facility] Phone Number [facility] [address] [address] CENTER T3 (01/17/2018 3:19 AM CDT) T3, Total 41 (L) 48 - 159 ng/dL [facility] Specimen Blood - Central Venous Line Performing Organization Address City/[facility] Phone Number [address] [address] [phone] CENTER Lipase (01/17/2018 3:19 AM CDT)Only the most recent of2 resultswithin the time period is included. Lipase 471 (H) 8 - 78 U/L [facility] Specimen Blood - Central Venous Line Performing Organization Address [facility] Phone Number [address] [address] [phone] [place] Basic Metabolic Panel (01/16/2018 4:26 PM CDT) Sodium 143 136 - 145 meq/L [facility] Potassium 4.1 3.5 - 5.1 meq/L [facility] Chloride 109 (H) 98 - 107 meq/L [facility] CO2 24 22 - 29 meq/L [facility] BUN 9 7 - 21 mg/dL [facility] Creatinine 0.74 0.57 - 1.25 mg/dL [facility] Glucose 249 (H) 70 - 105 mg/dL [facility] Calcium 8.1 (L) 8.4 - 10.2 mg/dL [facility] EGFR 76Comment: ESTIMATED GFR IS mL/min/1.73 sq m [facility] NOT ACCURATE CREATININE [facility] CENTER CLEARANCE IN PREDICTING GLOMERULAR FILTRATION RATE. ESTIMATED GFR IS NOT APPLICABLE FOR DIALYSIS PATIENTS. Specimen Blood Performing Organization Address [facility] Phone Number [address] [address] [phone] [place] Clostridium difficile [facility] Toxin (01/16/2018 4:08 AM CDT) C. Difficle Toxin Negative Negative [facility] C. Difficile [facility] Antigen Positive (A)Comment: C. Negative [facility] difficile present but toxin [facility]ENTER not detected. Indicates colonization with non-toxigenic strain or level of toxin below detectable levels. No need for enteric isolation. Treatment is rarely needed (only when strong clinical suspicion for Clostridium difficile infection) Specimen Stool - Stool Narrative Performed At Testing performed by [email or web address] [facility] Assay.For GDH, published sensitivity of the assay is 98.7% compared to cytotoxicity testing.For Toxin AB, published sensitivity is 87.8% and specificity 99.4% compared to cytotoxicity testing. Verification of kit performance was done by the [facility] Microbiology Lab prior to clinical use. Performing Organization Address City/[facility] Phone Number [address] [address] CENTER Potassium (01/15/2018 5:00 PM CDT)Only the most recent of2 resultswithin the time period is included. Potassium 4.2 3.5 - 5.1 meq/L [facility] Specimen Blood Performing Organization Address [facility] Phone Number [address] [address] CENTER Troponin I (01/14/2018 12:14 PM CDT)Only the most recent of2 resultswithin the time period is included. Troponin I 0.02 0.00 - 0.03 ng/mL [facility] Specimen Blood Narrative Performed At [facility] Troponin I (TnI) levels must be interpreted [...] tachyarrhythmia. Performing Organization Address City/State/Zipcode Phone Number [facility] [address] [place] [address] [phone] CENTER B-type Natriuretic Factor (BNP) (01/14/2018 11:08 AM CDT) BNP 975 (H) 0 - 100 pg/mL [facility] Specimen Blood Performing Organization Address [facility]/Zipcode Phone Number [facility] [address] [place] [address] [place] US abdomen limited (01/14/2018 6:45 AM CDT) Narrative Performed At FINAL REPORT [place] INDICATION: 77-year-old female with abdominal pain and [...] MD Report Verified Date/Time:01/14/2018 10:23:02 Reading Location: [facility] [id number] Ortho Consult Reading Room Procedure [...] Report Verified Date/Time: 01/14/2018 10:23:02 Reading Location: [facility] [id number] Ortho Consult Reading Room Performing Organization Address City/[facility]/Zipcode Phone Number [facility] [place] Vitamin B12 and Folate (01/14/2018 6:34 AM CDT) Vitamin B12 1,276 (H) 213 - 816 pg/mL [facility] Folate 8.8 >=7.0 ng/mL [facility] Specimen Blood - Line, Venous Performing Organization Address City/[facility]/Zipcode Phone Number [facility] [address] [place] [address] [phone] CENTER TSH/Free T4 If Indicated (01/14/2018 6:34 AM CDT) TSH 0.02 (L) 0.35 - 4.94 uIU/mL [facility] Specimen Blood - Line, Venous Performing Organization Address [facility] Phone Number [address] [address] [place] T4, free (01/14/2018 6:34 AM CDT) Free T4 0.83 0.70 - 1.48 ng/dL [facility] Specimen Blood - Line, Venous Performing Organization Address [facility] Phone Number [address] [address] [place] Lipid panel (01/14/2018 6:34 AM CDT) Triglycerides 171 mg/dL [facility] Cholesterol 123 mg/dL [facility] HDL 25 mg/dL [facility] LDL Calculated 64 mg/dL [facility] Specimen Blood - Line, Venous Narrative Performed At [facility] Triglyceride Reference Range: Low Risk <150 [id number] High Risk 200-499 Very High Risk>=500 Cholesterol Reference Range: Low Risk <200 [id number] High Risk>240 HDL Cholesterol Reference Range: Low Risk >=60 High Risk <40 LDL Cholesterol Reference Range: Optimal<100 Near [id number] [id number] Very High >=190 Performing Organization Address [facility] Phone Number [address] [address] CENTER Blood culture (01/14/2018 1:28 AM CDT)Only the most recent of2 resultswithin the time period is included. Result No growth in 5 days [facility] Specimen Blood - Line, Venous Performing Organization Address [facility] Phone Number [address] [address] [phone] [place] Urinalysis w/Microscopic (01/14/2018 1:28 AM CDT) Color, UA Yellow [facility] Clarity, UA Clear [facility] Specific Slater, UA 1.043 (H) 1.001 - 1.035 [facility] pH, UA 6.5 5.0 - 8.0 [facility] Protein, UA 20 mg/dL (A) Negative [facility] Glucose, UA 1000 mg/dL (A) Negative [facility] Ketones, UA Negative Negative [facility] Bilirubin, UA Negative Negative [facility] Blood, UA Trace (A) Negative [facility] Nitrite, UA Negative Negative [facility] Leukocytes, UA Negative Negative [facility] Urobilinogen, UA 0.2 0.2 - 1.0 mg/dL [facility] RBC, UA 1 /HPF [facility] WBC, UA 3 /HPF [facility] Bacteria, UA Rare [facility] Specimen Source Urine, Taylor [facility] Specimen Urine - Urine, Taylor Performing Organization Address City/[facility]/Zipcode Phone Number [address] [address] [phone] [place] Urine culture (01/14/2018 1:28 AM CDT) Result No growth [facility] Specimen Urine - Urine, Taylor Performing Organization Address City/[facility]/Zipcode Phone Number [address] [address] [phone] [place] Procalcitonin (01/14/2018 1:26 AM CDT) Procalcitonin 0.41 (H) <0.05 ng/mL [facility] Specimen Blood - Central Venous Line Narrative Performed At [facility] SEPSIS RISK (ng/mL) Low:0.05-0.50 Intermediate: 0.51-2.00 High: >=2.01 Performing Organization Address [facility] Phone Number [address] [address] [phone] [place] Lactic acid, venous, whole blood (01/14/2018 1:26 AM CDT) Lactate, Venous 1.3Comment: Specimen 0.5 - 2.2 mmol/L [facility] slightly hemolyzed [facility] Specimen Blood - Central Venous Line Narrative Performed At [facility] Effective 01/07/2016: Units/Reference Range Change New: 0.5-2.2 mmol/LPrevious: 5-20 mg/dL Performing Organization Address [facility] Phone Number [address] [address] [place] aPTT (01/14/2018 1:26 AM CDT) PTT 32.4 22.5 - 36.0 seconds [facility] Specimen Blood - Central Venous Line Performing Organization Address [facility] Phone Number [address] [address] [place] Amylase (01/14/2018 1:26 AM CDT) Amylase 226 (H) 25 - 125 U/L [facility] Specimen Blood - Central Venous Line Performing Organization Address [facility] Phone Number [address] [address] [phone] [place] after 09/25/2017 Insurance Payer Benefit Plan / Group Subscriber ID Type Phone Address MEDICARE MEDICARE A B xxxxxxxxxx Medicare AETNA - MGD CARE AETNA INDEMNITY NON CONTR xxxxxxxxxx Comm Advance Directives For more information, please contact:[address] [place], [place] [phone] Code Status Date Activated Date Inactivated Comments Full Code 01/14/2018 12:36 AM 01/18/2018 6:55 PM This code status was determined by: Patient
--- OUTSIDE RECORDS SUMMARY | 2018-09-26 09:26 | XMS REPORT ---
:1940 [facility] Address [address] [place] [address] Dr. Saunders [address] [place] [id number] Care Team Providers Name Role Phone MACIEJ VILLA Unavailable Unavailable RANCHO SANDOVAL Unavailable Unavailable Problems This patient has no known problems. Allergies, Adverse Reactions, Alerts This patient has no known allergies or adverse reactions. Medications This patient has no known medications. Results Test Description Test Time Test Comments Text Results Atomic Results Result Comments TISSUE EXAM 2018-03-20 13:06:00 Surgical Pathology Report Case: [id number] Authorizing Provider: Maciej Villa Collected: 03/14/2018 1115 Ordering Location: [facility] Endoscopy Received: 03/14/2018 1351 Services Pathologist: Mara Barbzoa MD Specimens: A) - Polyp, Duodenum B) - Stomach, Antrum, bx C) - Biopsy, Gastric, gastric body D) - Biopsy, Esophagus, random THIS ADDENDUM IS ISSUED TO REPORT THE RESULT OF IMMUNOHISTOCHEMICAL STUDY FOR HELICOBACTER PYLORI OM SPECIMEN B: - NEGATIVE CPT CODE: [id number] electronically signed by Mara Barboza MD on [...] MALIGNANCY SEEN Signing Pathologist Direct Phone Line: [phone] signed by Mara Barboza MD on 03/17/2018 at 10:35 [id number] X 4; [id number] X 2A. Polyp, duodenum. B. Stomach antrum. [...] (BEAKER) (test 75 mg/dL 70-110 TESTED AT [facility] [address] [facility] nojp=7995) [facility] [address] BLOOD [id number] 06:00:00 Test Item Value Reference Range Comments CULTURE (BEAKER) (test enoq=7756) No growth in 5 days BLOOD [id number] 06:00:00 Test Item Value Reference Range Comments CULTURE (BEAKER) (test eavt=0582) No growth in 5 days POCT-GLUCOSE [id number] 12:32:00 Test Item Value Reference Range Comments POC-GLUCOSE METER (BEAKER) 217 mg/dL 70-110 TESTED AT [facility] [address] [facility] (test drxh=5388) [facility] [address] POCT-GLUCOSE [id number] 08:36:00 Test Item Value Reference Range Comments POC-GLUCOSE METER (BEAKER) 92 mg/dL 70-110 TESTED AT [place] [id number] [facility] (test mhgv=8971) [facility] [address] COMPREHENSIVE METABOLIC [id number] 04:59:00 Test Item Value Reference Range Comments TOTAL PROTEIN (BEAKER) 5.2 gm/dL 6.0-8.3 (test gibi=312) ALBUMIN (BEAKER) (test 3.0 g/dL 3.5-5.0 pqsh=0820) ALKALINE PHOSPHATASE 39 U/L 40-150 (BEAKER) (test brlu=953) BILIRUBIN TOTAL (BEAKER) 0.4 mg/dL 0.2-1.2 (test ryvq=117) SODIUM (BEAKER) (test 145 meq/L 136-145 dxfj=743) POTASSIUM (BEAKER) (test 3.6 meq/L 3.5-5.1 etih=410) CHLORIDE (BEAKER) (test 109 meq/L 98-107 fubc=901) CO2 (BEAKER) (test 28 meq/L 22-29 rkvx=178) BLOOD UREA NITROGEN 8 mg/dL 7-21 (BEAKER) (test hooy=621) CREATININE (BEAKER) (test 0.70 mg/dL 0.57-1.25 fsln=048) GLUCOSE RANDOM (BEAKER) 107 mg/dL 70-105 (test woxg=153) CALCIUM (BEAKER) (test 8.4 mg/dL 8.4-10.2 shkc=252) AST (SGOT) (BEAKER) (test 9 U/L 5-34 vcze=948) ALT (SGPT) (BEAKER) (test < U/L 6-55 ootx=431) EGFR (BEAKER) (test 81 mL/min/1.73 sq m ESTIMATED GFR IS NOT ptpj=0598) ACCURATE CREATININE CLEARANCE IN PREDICTING GLOMERULAR FILTRATION RATE. ESTIMATED GFR IS NOT APPLICABLE FOR DIALYSIS PATIENTS. [id number] 04:50:00 Test Item Value Reference Range Comments MAGNESIUM (BEAKER) (test xzhm=970) 1.7 mg/dL 1.6-2.6 PROTHROMBIN [id number] 04:35:00 Test Item Value Reference Range Comments PROTIME (BEAKER) (test qfjm=883) 23.7 seconds 11.7-14.7 INR (BEAKER) (test zuvm=102) 2.1 <=5.9 RECOMMENDED COUMADIN/WARFARIN INR THERAPY RANGESSTANDARD DOSE: 2.0 - 3.0 Includes: PROPHYLAXIS forvenous thrombosis, systemic embolization; TREATMENT for venous thrombosis and/or pulmonary embolus.HIGH RISK: Target INR is 2.5-3.5 for patients with mechanical heart valves.CBC W/PLT COUNT & AUTO [id number] 04:24:00 Test Item Value Reference Range Comments WHITE BLOOD CELL COUNT (BEAKER) (test naqu=338) 4.8 K/ L 3.5-10.5 RED BLOOD CELL COUNT (BEAKER) (test flxo=483) 3.28 M/ L 3.93-5.22 HEMOGLOBIN (BEAKER) (test rjaw=459) 10.4 GM/DL 11.2-15.7 HEMATOCRIT (BEAKER) (test mmcm=964) 32.7 % 34.1-44.9 MEAN CORPUSCULAR VOLUME (BEAKER) (test lrfm=390) 99.7 fL 79.4-94.8 MEAN CORPUSCULAR HEMOGLOBIN (BEAKER) (test 31.7 pg 25.6-32.2 wjrl=538) MEAN CORPUSCULAR HEMOGLOBIN CONC (BEAKER) (test 31.8 GM/DL 32.2-35.5 emyd=344) RED CELL DISTRIBUTION WIDTH (BEAKER) (test 14.7 % 11.7-14.4 jfjk=151) PLATELET COUNT (BEAKER) (test jlib=432) 141 K/CU MM 150-450 MEAN PLATELET VOLUME (BEAKER) (test qgmb=160) 11.2 fL 9.4-12.3 NUCLEATED RED BLOOD CELLS (BEAKER) (test 0 /100 WBC 0-0 foen=836) NEUTROPHILS RELATIVE PERCENT (BEAKER) (test 67 % lbzp=007) LYMPHOCYTES RELATIVE PERCENT (BEAKER) (test 26 % xtsb=338) MONOCYTES RELATIVE PERCENT (BEAKER) (test 5 % omna=897) EOSINOPHILS RELATIVE PERCENT (BEAKER) (test 1 % movg=625) BASOPHILS RELATIVE PERCENT (BEAKER) (test 0 % thef=464) NEUTROPHILS ABSOLUTE COUNT (BEAKER) (test 3.21 K/ L 1.56-6.13 dkxi=568) LYMPHOCYTES ABSOLUTE COUNT (BEAKER) (test 1.24 K/ L 1.18-3.74 iosq=722) MONOCYTES ABSOLUTE COUNT (BEAKER) (test 0.23 K/ L 0.24-0.36 idpt=973) EOSINOPHILS ABSOLUTE COUNT (BEAKER) (test 0.06 K/ L 0.04-0.36 wpnz=496) BASOPHILS ABSOLUTE COUNT (BEAKER) (test 0.02 K/ L 0.01-0.08 ogjd=813) IMMATURE GRANULOCYTES-RELATIVE PERCENT (BEAKER) 1 % 0-1 (test lmlq=8243) POCT-GLUCOSE [id number] 22:13:00 Test Item Value Reference Range Comments POC-GLUCOSE METER (BEAKER) 194 mg/dL 70-110 TESTED AT [address] (test lfed=3878) [place] [address] POCT-GLUCOSE [id number] 18:14:00 Test Item Value Reference Range Comments POC-GLUCOSE METER (BEAKER) 195 mg/dL 70-110 TESTED AT [address] (test ancu=5705) [place] [address] POCT-GLUCOSE [id number] 12:20:00 Test Item Value Reference Range Comments POC-GLUCOSE METER (BEAKER) 224 mg/dL 70-110 TESTED AT [address] (test ulhr=7568) [place] [address] [id number] 08:55:00 Test Item Value Reference Range Comments LIPASE (BEAKER) (test dlmd=258) 471 U/L 8-78 POCT-GLUCOSE [id number] 08:12:00 Test Item Value Reference Range Comments POC-GLUCOSE METER (BEAKER) 128 mg/dL 70-110 TESTED AT [address] (test clom=0430) [place] [address] [id number] 04:12:00 Test Item Value Reference Range Comments T3 TOTAL (BEAKER) (test dcfq=074) 41 ng/dL 48-159 T3, [id number] 04:11:00 Test Item Value Reference Range Comments T3 FREE (BEAKER) (test hpoy=717) 1.31 pg/mL 1.71-3.71 COMPREHENSIVE METABOLIC [id number] 04:01:00 Test Item Value Reference Range Comments TOTAL PROTEIN (BEAKER) 4.8 gm/dL 6.0-8.3 (test fkqr=309) ALBUMIN (BEAKER) (test 2.8 g/dL 3.5-5.0 ayui=2467) ALKALINE PHOSPHATASE 33 U/L 40-150 (BEAKER) (test ddlv=453) BILIRUBIN TOTAL (BEAKER) 0.4 mg/dL 0.2-1.2 (test zsut=066) SODIUM (BEAKER) (test 143 meq/L 136-145 zsiz=724) POTASSIUM (BEAKER) (test 4.0 meq/L 3.5-5.1 nkhg=562) CHLORIDE (BEAKER) (test 110 meq/L 98-107 tgty=086) CO2 (BEAKER) (test 26 meq/L 22-29 psgl=689) BLOOD UREA NITROGEN 9 mg/dL 7-21 (BEAKER) (test mdum=917) CREATININE (BEAKER) (test 0.73 mg/dL 0.57-1.25 pzcy=983) GLUCOSE RANDOM (BEAKER) 213 mg/dL 70-105 (test ofjw=585) CALCIUM (BEAKER) (test 8.2 mg/dL 8.4-10.2 wlfc=906) AST (SGOT) (BEAKER) (test 8 U/L 5-34 vgiw=151) ALT (SGPT) (BEAKER) (test < U/L 6-55 hyre=762) EGFR (BEAKER) (test 77 mL/min/1.73 sq m ESTIMATED GFR IS NOT vvlr=5568) ACCURATE CREATININE CLEARANCE IN PREDICTING GLOMERULAR FILTRATION RATE. ESTIMATED GFR IS NOT APPLICABLE FOR DIALYSIS PATIENTS. [id number] 03:54:00 Test Item Value Reference Range Comments MAGNESIUM (BEAKER) (test dwwm=021) 1.7 mg/dL 1.6-2.6 PROTHROMBIN [id number] 03:53:00 Test Item Value Reference Range Comments PROTIME (BEAKER) (test gyst=589) 22.4 seconds 11.7-14.7 INR (BEAKER) (test lgth=877) 2.0 <=5.9 RECOMMENDED COUMADIN/WARFARIN INR THERAPY RANGESSTANDARD DOSE: 2.0 - 3.0 Includes: PROPHYLAXIS forvenous thrombosis, systemic embolization; TREATMENT for venous thrombosis and/or pulmonary embolus.HIGH RISK: Target INR is 2.5-3.5 for patients with mechanical heart valves.CBC W/PLT COUNT & AUTO [id number] 03:46:00 Test Item Value Reference Range Comments WHITE BLOOD CELL COUNT (BEAKER) (test ansg=559) 5.3 K/ L 3.5-10.5 RED BLOOD CELL COUNT (BEAKER) (test zkmg=821) 3.04 M/ L 3.93-5.22 HEMOGLOBIN (BEAKER) (test jyau=185) 9.7 GM/DL 11.2-15.7 HEMATOCRIT (BEAKER) (test glwn=147) 30.6 % 34.1-44.9 MEAN CORPUSCULAR VOLUME (BEAKER) (test upwz=396) 100.7 fL 79.4-94.8 MEAN CORPUSCULAR HEMOGLOBIN (BEAKER) (test 31.9 pg 25.6-32.2 sgxg=083) MEAN CORPUSCULAR HEMOGLOBIN CONC (BEAKER) (test 31.7 GM/DL 32.2-35.5 fwgh=441) RED CELL DISTRIBUTION WIDTH (BEAKER) (test 14.6 % 11.7-14.4 qzeg=825) PLATELET COUNT (BEAKER) (test efoy=328) 135 K/CU MM 150-450 MEAN PLATELET VOLUME (BEAKER) (test ooet=775) 11.4 fL 9.4-12.3 NUCLEATED RED BLOOD CELLS (BEAKER) (test 0 /100 WBC 0-0 wqro=224) NEUTROPHILS RELATIVE PERCENT (BEAKER) (test 76 % inpz=863) LYMPHOCYTES RELATIVE PERCENT (BEAKER) (test 19 % wuyf=546) MONOCYTES RELATIVE PERCENT (BEAKER) (test 3 % jhpf=890) EOSINOPHILS RELATIVE PERCENT (BEAKER) (test 0 % bqdz=307) BASOPHILS RELATIVE PERCENT (BEAKER) (test 0 % xftm=877) NEUTROPHILS ABSOLUTE COUNT (BEAKER) (test 4.02 K/ L 1.56-6.13 kmqx=868) LYMPHOCYTES ABSOLUTE COUNT (BEAKER) (test 1.01 K/ L 1.18-3.74 rrgz=934) MONOCYTES ABSOLUTE COUNT (BEAKER) (test 0.15 K/ L 0.24-0.36 ttpi=262) EOSINOPHILS ABSOLUTE COUNT (BEAKER) (test 0.01 K/ L 0.04-0.36 yvql=767) BASOPHILS ABSOLUTE COUNT (BEAKER) (test 0.01 K/ L 0.01-0.08 rabh=473) IMMATURE GRANULOCYTES-RELATIVE PERCENT (BEAKER) 1 % 0-1 (test idsn=1149) POCT-GLUCOSE [id number] 22:34:00 Test Item Value Reference Range Comments POC-GLUCOSE METER (BEAKER) 252 mg/dL 70-110 TESTED AT [facility] [address] [facility] [address] (test blml=5838) [facility] [address] [id number] 19:36:00 Test Item Value Reference Range Comments MAGNESIUM (BEAKER) (test yqcf=074) 1.6 mg/dL 1.6-2.6 BASIC METABOLIC [id number] 19:36:00 Test Item Value Reference Range Comments SODIUM (BEAKER) (test 143 meq/L 136-145 kneb=765) POTASSIUM (BEAKER) (test 4.1 meq/L 3.5-5.1 rwte=552) CHLORIDE (BEAKER) (test 109 meq/L 98-107 vtme=800) CO2 (BEAKER) (test 24 meq/L 22-29 miva=677) BLOOD UREA NITROGEN 9 mg/dL 7-21 (BEAKER) (test oaqi=306) CREATININE (BEAKER) (test 0.74 mg/dL 0.57-1.25 nogh=897) GLUCOSE RANDOM (BEAKER) 249 mg/dL 70-105 (test ucei=068) CALCIUM (BEAKER) (test 8.1 mg/dL 8.4-10.2 ienq=837) EGFR (BEAKER) (test 76 mL/min/1.73 sq m ESTIMATED GFR IS NOT siyx=9863) ACCURATE CREATININE CLEARANCE IN PREDICTING GLOMERULAR FILTRATION RATE. ESTIMATED GFR IS NOT APPLICABLE FOR DIALYSIS PATIENTS. URINE [id number] 11:51:00 Test Item Value Reference Range Comments CULTURE (BEAKER) (test kftr=3783) No growth POCT-GLUCOSE [id number] 11:42:00 Test Item Value Reference Range Comments POC-GLUCOSE METER (BEAKER) 205 mg/dL 70-110 TESTED AT [address] (test tugh=8223) [facility] [address] POCT-GLUCOSE [id number] 08:08:00 Test Item Value Reference Range Comments POC-GLUCOSE METER (BEAKER) 119 mg/dL 70-110 TESTED AT [address] (test uwxx=1802) [place] [id number] C. DIFFICILE GDH [id number] 07:40:00 Test Item Value Reference Range Comments CDT TOXIN (test Negative Negative qwhc=[id number]) CDT GDH ANTIGEN (test Positive Negative C. difficile present but toxin bcnw=[id number]) not detected. Indicates colonization with non-toxigenic strain or level of toxin below detectable levels. No need for enteric isolation. Treatment is rarely needed (only when strong clinical suspicion for Clostridium difficile infection) Testing performed by [employer] Rapid Cassette Assay. For GDH, published sensitivity of the assay is 98.7% compared to cytotoxicity testing. For Toxin AB, published sensitivity is 87.8% and specificity 99.4% compared to cytotoxicity testing.Verification of kit performance was done by the [facility] Microbiology Lab prior to clinical use.POCT-GLUCOSE [id number] 06:37:00 Test Item Value Reference Range Comments POC-GLUCOSE METER (BEAKER) 141 mg/dL 70-110 TESTED AT [address] (test zctb=4674) [facility] [address] COMPREHENSIVE METABOLIC [id number] 04:48:00 Test Item Value Reference Range Comments TOTAL PROTEIN (BEAKER) 4.7 gm/dL 6.0-8.3 (test hifb=740) ALBUMIN (BEAKER) (test 2.7 g/dL 3.5-5.0 knqi=5530) ALKALINE PHOSPHATASE 33 U/L 40-150 (BEAKER) (test yczb=631) BILIRUBIN TOTAL (BEAKER) 0.4 mg/dL 0.2-1.2 (test wiyr=239) SODIUM (BEAKER) (test 145 meq/L 136-145 zzur=153) POTASSIUM (BEAKER) (test 3.7 meq/L 3.5-5.1 fyrx=348) CHLORIDE (BEAKER) (test 110 meq/L 98-107 jtvh=774) CO2 (BEAKER) (test 28 meq/L 22-29 kzgs=155) BLOOD UREA NITROGEN 11 mg/dL 7-21 (BEAKER) (test psar=006) CREATININE (BEAKER) (test 0.74 mg/dL 0.57-1.25 fckt=403) GLUCOSE RANDOM (BEAKER) 137 mg/dL 70-105 (test ytfs=697) CALCIUM (BEAKER) (test 8.2 mg/dL 8.4-10.2 rsha=605) AST (SGOT) (BEAKER) (test 8 U/L 5-34 xlvf=480) ALT (SGPT) (BEAKER) (test < U/L 6-55 kxdc=070) EGFR (BEAKER) (test 76 mL/min/1.73 sq m ESTIMATED GFR IS NOT lnmi=4757) ACCURATE CREATININE CLEARANCE IN PREDICTING GLOMERULAR FILTRATION RATE. ESTIMATED GFR IS NOT APPLICABLE FOR DIALYSIS PATIENTS. PROTHROMBIN TIME/[id number] 04:40:00 Test Item Value Reference Range Comments PROTIME (BEAKER) (test bcxn=819) 23.8 seconds 11.7-14.7 INR (BEAKER) (test dbze=963) 2.1 <=5.9 RECOMMENDED COUMADIN/WARFARIN INR THERAPY RANGESSTANDARD DOSE: 2.0 - 3.0 Includes: PROPHYLAXIS forvenous thrombosis, systemic embolization; TREATMENT for venous thrombosis and/or pulmonary embolus.HIGH RISK: Target INR is 2.5-3.5 for patients with mechanical heart valves.While on warfarin.[id number] 04:29:00 Test Item Value Reference Range Comments MAGNESIUM (BEAKER) (test ebku=145) 2.0 mg/dL 1.6-2.6 CBC W/PLT COUNT & AUTO [id number] 04:11:00 Test Item Value Reference Range Comments WHITE BLOOD CELL COUNT (BEAKER) (test oicg=001) 5.8 K/ L 3.5-10.5 RED BLOOD CELL COUNT (BEAKER) (test yyid=599) 3.18 M/ L 3.93-5.22 HEMOGLOBIN (BEAKER) (test twpw=715) 10.0 GM/DL 11.2-15.7 HEMATOCRIT (BEAKER) (test wgwp=720) 31.8 % 34.1-44.9 MEAN CORPUSCULAR VOLUME (BEAKER) (test ldoa=016) 100.0 fL 79.4-94.8 MEAN CORPUSCULAR HEMOGLOBIN (BEAKER) (test 31.4 pg 25.6-32.2 jjbl=332) MEAN CORPUSCULAR HEMOGLOBIN CONC (BEAKER) (test 31.4 GM/DL 32.2-35.5 sxyv=290) RED CELL DISTRIBUTION WIDTH (BEAKER) (test 14.9 % 11.7-14.4 pbdl=485) PLATELET COUNT (BEAKER) (test shke=285) 141 K/CU MM 150-450 MEAN PLATELET VOLUME (BEAKER) (test oyfx=453) 11.3 fL 9.4-12.3 NUCLEATED RED BLOOD CELLS (BEAKER) (test 0 /100 WBC 0-0 chjp=198) NEUTROPHILS RELATIVE PERCENT (BEAKER) (test 71 % bkvy=558) LYMPHOCYTES RELATIVE PERCENT (BEAKER) (test 23 % otqf=379) MONOCYTES RELATIVE PERCENT (BEAKER) (test 4 % fwae=512) EOSINOPHILS RELATIVE PERCENT (BEAKER) (test 0 % vpri=624) BASOPHILS RELATIVE PERCENT (BEAKER) (test 0 % bhvk=360) NEUTROPHILS ABSOLUTE COUNT (BEAKER) (test 4.14 K/ L 1.56-6.13 jtwh=821) LYMPHOCYTES ABSOLUTE COUNT (BEAKER) (test 1.34 K/ L 1.18-3.74 qotk=848) MONOCYTES ABSOLUTE COUNT (BEAKER) (test 0.23 K/ L 0.24-0.36 mzjq=111) EOSINOPHILS ABSOLUTE COUNT (BEAKER) (test 0.02 K/ L 0.04-0.36 svgy=060) BASOPHILS ABSOLUTE COUNT (BEAKER) (test 0.02 K/ L 0.01-0.08 itqd=159) IMMATURE GRANULOCYTES-RELATIVE PERCENT (BEAKER) 1 % 0-1 (test kelw=9673) POCT-GLUCOSE [id number] 22:19:00 Test Item Value Reference Range Comments POC-GLUCOSE METER (BEAKER) 266 mg/dL 70-110 TESTED AT [facility] [address] [facility] (test zncp=1823) [facility] [address] [id number] 17:54:00 Test Item Value Reference Range Comments POTASSIUM (BEAKER) (test spqt=310) 4.2 meq/L 3.5-5.1 [id number] 17:23:00 Test Item Value Reference Range Comments MAGNESIUM (BEAKER) (test mocj=784) 1.7 mg/dL 1.6-2.6 POCT-GLUCOSE [id number] 12:41:00 Test Item Value Reference Range Comments POC-GLUCOSE METER (BEAKER) 111 mg/dL 70-110 TESTED AT [address] (test tahk=5804) [place] [id number] 12:40:00 Test Item Value Reference Range Comments POTASSIUM (BEAKER) (test khdj=119) 3.5 meq/L 3.5-5.1 POCT-GLUCOSE [id number] 10:05:00 Test Item Value Reference Range Comments POC-GLUCOSE METER (BEAKER) 94 mg/dL 70-110 TESTED AT [address] (test vrgi=8643) [place] [id number] COMPREHENSIVE METABOLIC [id number] 05:47:00 Test Item Value Reference Range Comments TOTAL PROTEIN (BEAKER) 4.7 gm/dL 6.0-8.3 (test ulcj=787) ALBUMIN (BEAKER) (test 2.7 g/dL 3.5-5.0 yubr=2401) ALKALINE PHOSPHATASE 31 U/L 40-150 (BEAKER) (test tfpu=192) BILIRUBIN TOTAL (BEAKER) 0.5 mg/dL 0.2-1.2 (test rtxy=963) SODIUM (BEAKER) (test 147 meq/L 136-145 kbnz=292) POTASSIUM (BEAKER) (test 2.9 meq/L 3.5-5.1 yvez=749) CHLORIDE (BEAKER) (test 110 meq/L 98-107 tayb=658) CO2 (BEAKER) (test 27 meq/L 22-29 jufu=209) BLOOD UREA NITROGEN 10 mg/dL 7-21 (BEAKER) (test aneu=385) CREATININE (BEAKER) (test 0.70 mg/dL 0.57-1.25 vrfq=462) GLUCOSE RANDOM (BEAKER) 86 mg/dL 70-105 (test qofn=110) CALCIUM (BEAKER) (test 7.9 mg/dL 8.4-10.2 xbxz=908) AST (SGOT) (BEAKER) (test 9 U/L 5-34 zalo=661) ALT (SGPT) (BEAKER) (test < U/L 6-55 pnmg=663) EGFR (BEAKER) (test 81 mL/min/1.73 sq m ESTIMATED GFR IS NOT vnxv=2381) ACCURATE CREATININE CLEARANCE IN PREDICTING GLOMERULAR FILTRATION RATE. ESTIMATED GFR IS NOT APPLICABLE FOR DIALYSIS PATIENTS. [id number] 05:44:00 Test Item Value Reference Range Comments MAGNESIUM (BEAKER) (test sisy=126) 2.0 mg/dL 1.6-2.6 PROTHROMBIN TIME/[id number] 05:37:00 Test Item Value Reference Range Comments PROTIME (BEAKER) (test pwdl=048) 24.0 seconds 11.7-14.7 INR (BEAKER) (test kroy=335) 2.2 <=5.9 RECOMMENDED COUMADIN/WARFARIN INR THERAPY RANGESSTANDARD DOSE: 2.0 - 3.0 Includes: PROPHYLAXIS forvenous thrombosis, systemic embolization; TREATMENT for venous thrombosis and/or pulmonary embolus.HIGH RISK: Target INR is 2.5-3.5 for patients with mechanical heart valves.PROTHROMBIN TIME/[id number] 05:36: 00 Test Item Value Reference Range Comments PROTIME (BEAKER) (test sciy=549) 24.2 seconds 11.7-14.7 INR (BEAKER) (test iemc=947) 2.2 <=5.9 RECOMMENDED COUMADIN/WARFARIN INR THERAPY RANGESSTANDARD DOSE: 2.0 - 3.0 Includes: PROPHYLAXIS forvenous thrombosis, systemic embolization; TREATMENT for venous thrombosis and/or pulmonary embolus.HIGH RISK: Target INR is 2.5-3.5 for patients with mechanical heart valves.While on warfarin.CBC W/PLT COUNT &amp ; AUTO [id number] 05:35:00 Test Item Value Reference Range Comments WHITE BLOOD CELL COUNT (BEAKER) (test fwrc=039) 4.3 K/ L 3.5-10.5 RED BLOOD CELL COUNT (BEAKER) (test nbjo=013) 3.29 M/ L 3.93-5.22 HEMOGLOBIN (BEAKER) (test uhoq=538) 10.3 GM/DL 11.2-15.7 HEMATOCRIT (BEAKER) (test mlbf=266) 33.2 % 34.1-44.9 MEAN CORPUSCULAR VOLUME (BEAKER) (test ztfc=929) 100.9 fL 79.4-94.8 MEAN CORPUSCULAR HEMOGLOBIN (BEAKER) (test 31.3 pg 25.6-32.2 wbwa=827) MEAN CORPUSCULAR HEMOGLOBIN CONC (BEAKER) (test 31.0 GM/DL 32.2-35.5 zyms=677) RED CELL DISTRIBUTION WIDTH (BEAKER) (test 14.9 % 11.7-14.4 kkia=088) PLATELET COUNT (BEAKER) (test irik=297) 138 K/CU MM 150-450 MEAN PLATELET VOLUME (BEAKER) (test ypdt=866) 11.5 fL 9.4-12.3 NUCLEATED RED BLOOD CELLS (BEAKER) (test 0 /100 WBC 0-0 vifi=824) NEUTROPHILS RELATIVE PERCENT (BEAKER) (test 66 % xzej=142) LYMPHOCYTES RELATIVE PERCENT (BEAKER) (test 27 % sean=441) MONOCYTES RELATIVE PERCENT (BEAKER) (test 4 % irkc=287) EOSINOPHILS RELATIVE PERCENT (BEAKER) (test 1 % weic=565) BASOPHILS RELATIVE PERCENT (BEAKER) (test 0 % tatr=088) NEUTROPHILS ABSOLUTE COUNT (BEAKER) (test 2.82 K/ L 1.56-6.13 figo=691) LYMPHOCYTES ABSOLUTE COUNT (BEAKER) (test 1.16 K/ L 1.18-3.74 casm=083) MONOCYTES ABSOLUTE COUNT (BEAKER) (test 0.18 K/ L 0.24-0.36 igme=512) EOSINOPHILS ABSOLUTE COUNT (BEAKER) (test 0.06 K/ L 0.04-0.36 wiic=790) BASOPHILS ABSOLUTE COUNT (BEAKER) (test 0.01 K/ L 0.01-0.08 flxn=000) IMMATURE GRANULOCYTES-RELATIVE PERCENT (BEAKER) 1 % 0-1 (test dojo=6892) POCT-GLUCOSE [id number] 23:56:00 Test Item Value Reference Range Comments POC-GLUCOSE METER (BEAKER) 105 mg/dL 70-110 TESTED AT [facility] [address] (test npyd=3171) [facility] [address] TROPONIN [id number] 13:02:00 Test Item Value Reference Range Comments TROPONIN I (BEAKER) (test pahf=030) 0.02 ng/mL 0.00-0.03 Troponin I (TnI) levels [...] NATRIURETIC PEPTIDE (BEAKER) (test 975 pg/mL 0-100 bqrr=763) POCT-GLUCOSE [id number] 12:18:00 Test Item Value Reference Range Comments POC-GLUCOSE METER (BEAKER) 175 mg/dL 70-110 TESTED AT [facility] [address] [facility] (test jpjq=3086) [facility] [address] U/S, ABDOMINAL, [id number] 10:23:00Abdomen limited area? Add comment if clarification [...] MDReport Verified Date/Time: 01/14/2018 10:23:02 Reading Location: [address] Ortho Consult Reading Room T4, [id number] 08:42 :00 Test Item Value Reference Range Comments FREE T4 (BEAKER) (test isxv=347) 0.83 ng/dL 0.70-1.48 POCT-GLUCOSE [id number] 08:37:00 Test Item Value Reference Range Comments POC-GLUCOSE METER (BEAKER) 161 mg/dL 70-110 TESTED AT [facility] [address] [facility] (test heri=2063) [facility] [address] TSH/FREE T4 IF [id number] 08:05:00 Test Item Value Reference Range Comments THYROID STIMULATING HORMONE (BEAKER) (test 0.02 uIU/mL 0.35-4.94 fyjq=626) VITAMIN B12 AND [id number] 07:42:00 Test Item Value Reference Range Comments VITAMIN B12 (BEAKER) (test ezfk=026) 1276 pg/mL 213-816 FOLATE (BEAKER) (test zplg=426) 8.8 ng/mL >=7.0 LIPID [id number] 07:14:00 Test Item Value Reference Range Comments TRIGLYCERIDES (BEAKER) (test eqiy=324) 171 mg/dL CHOLESTEROL (BEAKER) (test rjlk=930) 123 mg/dL HDL CHOLESTEROL (BEAKER) (test wqrz=217) 25 mg/dL LDL CHOLESTEROL CALCULATED (BEAKER) (test 64 mg/dL shei=047) Triglyceride Reference Range: Low Risk <150 Borderline 150- 199 High Risk 200-499 Very High Risk >=500Cholesterol Reference Range: Low Risk <200 Borderline 200-239 High Risk > 240HDL Cholesterol Reference Range: Low Risk >=60 High Risk <40LDL Cholesterol Reference Range: Optimal <100 Near Optimal 100-129 Borderline 130-159 High 160-189 Very High >=190TROPONIN [id number] 07:12:00 Test Item Value Reference Range Comments TROPONIN I (BEAKER) (test ycot=374) 0.03 ng/mL 0.00-0.03 Troponin I (TnI) levels [...] acute neurological disease, and persistent tachyarrhythmia.URINALYSIS W/ [id number] 06: 35:00 Test Item Value Reference Range Comments COLOR (BEAKER) (test swss=480) Yellow CLARITY (BEAKER) (test uzan=518) Clear SPECIFIC GRAVITY UA (BEAKER) (test owms=585) 1.043 1.001-1.035 PH UA (BEAKER) (test nyhn=602) 6.5 5.0-8.0 PROTEIN UA (BEAKER) (test qmxn=728) 20 mg/dL Negative GLUCOSE UA (BEAKER) (test xwit=496) 1000 mg/dL Negative KETONES UA (BEAKER) (test xivt=460) Negative Negative BILIRUBIN UA (BEAKER) (test mxnp=750) Negative Negative BLOOD UA (BEAKER) (test hjqk=660) Trace Negative NITRITE UA (BEAKER) (test pukr=548) Negative Negative LEUKOCYTE ESTERASE UA (BEAKER) (test tyoa=015) Negative Negative UROBILINOGEN UA (BEAKER) (test zagi=988) 0.2 mg/dL 0.2-1.0 RBC UA (BEAKER) (test uiyz=648) 1 /HPF WBC UA (BEAKER) (test dqrc=910) 3 /HPF BACTERIA (BEAKER) (test mayl=582) Rare SOURCE(BEAKER) (test nzag=4358) Urine, Taylor [id number] 06:07:00 Test Item Value Reference Range Comments MAGNESIUM (BEAKER) (test jcuy=738) 1.8 mg/dL 1.6-2.6 [id number] 05:32:00 Test Item Value Reference Range Comments MAGNESIUM (BEAKER) (test yaim=792) 2.5 mg/dL 1.6-2.6 COMPREHENSIVE METABOLIC [id number] 05:32:00 Test Item Value Reference Range Comments TOTAL PROTEIN (BEAKER) 5.1 gm/dL 6.0-8.3 (test xugn=776) ALBUMIN (BEAKER) (test 2.9 g/dL 3.5-5.0 nvww=0116) ALKALINE PHOSPHATASE 31 U/L 40-150 (BEAKER) (test nfxb=194) BILIRUBIN TOTAL (BEAKER) 0.4 mg/dL 0.2-1.2 (test epjx=747) SODIUM (BEAKER) (test 145 meq/L 136-145 kuaf=563) POTASSIUM (BEAKER) (test 4.0 meq/L 3.5-5.1 uxyr=723) CHLORIDE (BEAKER) (test 110 meq/L 98-107 uezx=585) CO2 (BEAKER) (test 28 meq/L 22-29 urge=910) BLOOD UREA NITROGEN 14 mg/dL 7-21 (BEAKER) (test owjj=866) CREATININE (BEAKER) (test 0.71 mg/dL 0.57-1.25 wumv=802) GLUCOSE RANDOM (BEAKER) 187 mg/dL 70-105 (test kimq=682) CALCIUM (BEAKER) (test 8.1 mg/dL 8.4-10.2 ozrx=266) AST (SGOT) (BEAKER) (test 9 U/L 5-34 qcrz=633) ALT (SGPT) (BEAKER) (test 6 U/L 6-55 kvfg=638) EGFR (BEAKER) (test 79 mL/min/1.73 sq m ESTIMATED GFR IS NOT ingb=7284) ACCURATE CREATININE CLEARANCE IN PREDICTING GLOMERULAR FILTRATION RATE. ESTIMATED GFR IS NOT APPLICABLE FOR DIALYSIS PATIENTS. PROTHROMBIN [id number] 05:10:00 Test Item Value Reference Range Comments PROTIME (BEAKER) (test vhkx=823) 25.1 seconds 11.7-14.7 INR (BEAKER) (test ltrc=556) 2.3 <=5.9 RECOMMENDED COUMADIN/WARFARIN INR THERAPY RANGESSTANDARD DOSE: 2.0 - 3.0 Includes: PROPHYLAXIS forvenous thrombosis, systemic embolization; TREATMENT for venous thrombosis and/or pulmonary embolus.HIGH RISK: Target INR is 2.5-3.5 for patients with mechanical heart valves.CBC W/PLT COUNT & AUTO [id number] 05:03:00 Test Item Value Reference Range Comments WHITE BLOOD CELL COUNT (BEAKER) (test mrzm=109) 5.6 K/ L 3.5-10.5 RED BLOOD CELL COUNT (BEAKER) (test bsrh=649) 3.19 M/ L 3.93-5.22 HEMOGLOBIN (BEAKER) (test ztjq=033) 10.1 GM/DL 11.2-15.7 HEMATOCRIT (BEAKER) (test cscn=149) 31.5 % 34.1-44.9 MEAN CORPUSCULAR VOLUME (BEAKER) (test ndfe=770) 98.7 fL 79.4-94.8 MEAN CORPUSCULAR HEMOGLOBIN (BEAKER) (test 31.7 pg 25.6-32.2 jtal=425) MEAN CORPUSCULAR HEMOGLOBIN CONC (BEAKER) (test 32.1 GM/DL 32.2-35.5 bako=478) RED CELL DISTRIBUTION WIDTH (BEAKER) (test 14.6 % 11.7-14.4 vrao=852) PLATELET COUNT (BEAKER) (test skun=239) 141 K/CU MM 150-450 MEAN PLATELET VOLUME (BEAKER) (test cpeb=690) 11.6 fL 9.4-12.3 NUCLEATED RED BLOOD CELLS (BEAKER) (test 0 /100 WBC 0-0 kttz=821) NEUTROPHILS RELATIVE PERCENT (BEAKER) (test 71 % mxxb=735) LYMPHOCYTES RELATIVE PERCENT (BEAKER) (test 22 % ttho=360) MONOCYTES RELATIVE PERCENT (BEAKER) (test 5 % ejaj=020) EOSINOPHILS RELATIVE PERCENT (BEAKER) (test 0 % wqsq=249) BASOPHILS RELATIVE PERCENT (BEAKER) (test 0 % xtxn=398) NEUTROPHILS ABSOLUTE COUNT (BEAKER) (test 4.00 K/ L 1.56-6.13 nimv=183) LYMPHOCYTES ABSOLUTE COUNT (BEAKER) (test 1.25 K/ L 1.18-3.74 afjl=974) MONOCYTES ABSOLUTE COUNT (BEAKER) (test 0.26 K/ L 0.24-0.36 hrmv=175) EOSINOPHILS ABSOLUTE COUNT (BEAKER) (test 0.02 K/ L 0.04-0.36 tcpo=545) BASOPHILS ABSOLUTE COUNT (BEAKER) (test 0.01 K/ L 0.01-0.08 hrzj=344) IMMATURE GRANULOCYTES-RELATIVE PERCENT (BEAKER) 1 % 0-1 (test qwdl=4399) [id number] 02:52:00 Test Item Value Reference Range Comments PROCALCITONIN (BEAKER) (test kklq=4503) 0.41 ng/mL <0.05 SEPSIS RISK (ng/mL)Low: 0.05-0.50Intermediate: 0.51-2.00High: & gt;=2.01LACTIC ACID, VENOUS, WHOLE [id number] 02:06:00 Test Item Value Reference Range Comments LACTATE BLOOD VENOUS (2) 1.3 mmol/L 0.5-2.2 Specimen slightly hemolyzed (BEAKER) (test utvd=0851) Effective 01/07/2016: Units/Reference Range ChangeNew: 0.5-2.2 mmol/L Previous: 5 -20 mg/dLCOMPREHENSIVE METABOLIC [id number] 02:06:00 Test Item Value Reference Range Comments TOTAL PROTEIN (BEAKER) 5.2 gm/dL 6.0-8.3 (test lhih=652) ALBUMIN (BEAKER) (test 3.0 g/dL 3.5-5.0 jaws=3073) ALKALINE PHOSPHATASE 31 U/L 40-150 (BEAKER) (test yrki=628) BILIRUBIN TOTAL (BEAKER) 0.4 mg/dL 0.2-1.2 (test cdyn=336) SODIUM (BEAKER) (test 143 meq/L 136-145 wbcs=958) POTASSIUM (BEAKER) (test 2.9 meq/L 3.5-5.1 uamv=769) CHLORIDE (BEAKER) (test 109 meq/L 98-107 jibk=022) CO2 (BEAKER) (test 27 meq/L 22-29 ipef=692) BLOOD UREA NITROGEN 15 mg/dL 7-21 (BEAKER) (test piyu=759) CREATININE (BEAKER) (test 0.70 mg/dL 0.57-1.25 qxjs=986) GLUCOSE RANDOM (BEAKER) 215 mg/dL 70-105 (test gsyz=764) CALCIUM (BEAKER) (test 7.9 mg/dL 8.4-10.2 mupc=902) AST (SGOT) (BEAKER) (test 10 U/L 5-34 fuev=290) ALT (SGPT) (BEAKER) (test 7 U/L 6-55 rqrv=249) EGFR (BEAKER) (test 81 mL/min/1.73 sq m ESTIMATED GFR IS NOT axoh=4838) ACCURATE CREATININE CLEARANCE IN PREDICTING GLOMERULAR FILTRATION RATE. ESTIMATED GFR IS NOT APPLICABLE FOR DIALYSIS PATIENTS. [id number] 02:04:00 Test Item Value Reference Range Comments LIPASE (BEAKER) (test dubp=212) 730 U/L 8-78 [id number] 02:04:00 Test Item Value Reference Range Comments AMYLASE (BEAKER) (test rrzh=227) 226 U/L 25-125 PROTHROMBIN [id number] 01:45:00 Test Item Value Reference Range Comments PROTIME (BEAKER) (test cxpu=367) 23.9 seconds 11.7-14.7 INR (BEAKER) (test ynzn=214) 2.1 <=5.9 RECOMMENDED COUMADIN/WARFARIN INR THERAPY RANGESSTANDARD DOSE: 2.0 - 3.0 Includes: PROPHYLAXIS forvenous thrombosis, systemic embolization; TREATMENT for venous thrombosis and/or pulmonary embolus.HIGH RISK: Target INR is 2.5-3.5 for patients with mechanical heart valves.[id number] 01:45:00 Test Item Value Reference Range Comments PARTIAL THROMBOPLASTIN TIME (BEAKER) (test 32.4 seconds 22.5-36.0 narz=109) CBC W/PLT COUNT & AUTO [id number] 01:38:00 Test Item Value Reference Range Comments WHITE BLOOD CELL COUNT (BEAKER) (test rqdb=712) 4.9 K/ L 3.5-10.5 RED BLOOD CELL COUNT (BEAKER) (test rgxd=859) 3.21 M/ L 3.93-5.22 HEMOGLOBIN (BEAKER) (test iubs=009) 10.2 GM/DL 11.2-15.7 HEMATOCRIT (BEAKER) (test kojm=929) 31.6 % 34.1-44.9 MEAN CORPUSCULAR VOLUME (BEAKER) (test cqzx=452) 98.4 fL 79.4-94.8 MEAN CORPUSCULAR HEMOGLOBIN (BEAKER) (test 31.8 pg 25.6-32.2 frbg=392) MEAN CORPUSCULAR HEMOGLOBIN CONC (BEAKER) (test 32.3 GM/DL 32.2-35.5 xhgw=272) RED CELL DISTRIBUTION WIDTH (BEAKER) (test 14.4 % 11.7-14.4 ylla=484) PLATELET COUNT (BEAKER) (test ymsm=047) 137 K/CU MM 150-450 MEAN PLATELET VOLUME (BEAKER) (test uafw=355) 11.9 fL 9.4-12.3 NUCLEATED RED BLOOD CELLS (BEAKER) (test 0 /100 WBC 0-0 zdig=585) NEUTROPHILS RELATIVE PERCENT (BEAKER) (test 76 % pnsw=963) LYMPHOCYTES RELATIVE PERCENT (BEAKER) (test 19 % lhix=426) MONOCYTES RELATIVE PERCENT (BEAKER) (test 4 % unka=178) EOSINOPHILS RELATIVE PERCENT (BEAKER) (test 0 % tsyu=759) BASOPHILS RELATIVE PERCENT (BEAKER) (test 0 % artg=774) NEUTROPHILS ABSOLUTE COUNT (BEAKER) (test 3.73 K/ L 1.56-6.13 zxxq=541) LYMPHOCYTES ABSOLUTE COUNT (BEAKER) (test 0.92 K/ L 1.18-3.74 firg=027) MONOCYTES ABSOLUTE COUNT (BEAKER) (test 0.21 K/ L 0.24-0.36 uris=234) EOSINOPHILS ABSOLUTE COUNT (BEAKER) (test 0.00 K/ L 0.04-0.36 rddv=346) BASOPHILS ABSOLUTE COUNT (BEAKER) (test 0.01 K/ L 0.01-0.08 vxia=932) IMMATURE GRANULOCYTES-RELATIVE PERCENT (BEAKER) 1 % 0-1 (test cidd=4206)
[2018-09-26] MEDS ORDERED: MAGNE/ALUM HYDROXD 30 ML UCUP ONE (10:24)
[2018-09-26] MEDS ORDERED: LIDOCAINE VISCOUS 2% SOLN 15 ML UDC ONE (10:24)
[2018-09-26 10:26] LABS: Absolute Lymphocytes (CBC) 1.3 K/uL (0.7-4.9); Absolute Monocytes 0.3 K/uL (0.1-1.3); Absolute Neutrophil 2.7 K/uL (1.8-8.0); Basophils % 0.7 % (0-1.3); Eosinophils % 1.5 % (0-4.4); Hematocrit 39.6 % (36.0-45.0); Lymphocytes % 29.7 % (15.3-44.8); MPV 9.8 fL (7.6-11.3); Monocytes % 7.6 % (3.3-12.3); RBC Red Blood Cell Count 4.36 M/uL (3.86-4.86)
[2018-09-26 10:54] LABS: Protime INR 6.07
[2018-09-26 11:11] LABS: Albumin 3.6 g/dL (3.4-5.0); Bilirubin Direct 0.2 mg/dL (0-0.2); Bilirubin Total 0.7 mg/dL (0.2-1.0); Protein, Total 6.7 g/dL (6.4-8.2)
[2018-09-26 11:12] LABS: Potassium 2.8 mmol/L (3.5-5.1)
--- NOTE | 2018-09-26 12:50 | RAD REPORT ---
EXAM DESCRIPTION: CT - Abdomen Pelvis W Contrast - 09/26/2018 12:36 pm CLINICAL HISTORY: Abdominal pain. Epigastric pain COMPARISON: January 2018 TECHNIQUE: Computed axial tomography of the abdomen and pelvis was obtained. 100 cc Isovue-300 is ad ministered intravenously. Oral contrast was given. All CT scans are performed using dose optimization technique as appropriate and may include automated exposure control or mA/KV adjustment according to patient size. FINDINGS: Several hepatic cysts are without significant change. The Spleen, pancreas, adrenals and kidneys appear unremarkable. Diverticula stem from colon without evidence of diverticulitis An adnexal mass is not noted. A hysterectomy has been performed. Spondylosis involves the lumbar spine resulting in severe spinal stenosis. IMPRESSION: No acute abnormality displayed
[2018-09-26] MEDS ORDERED: NA CHLORIDE 0.9% 500 ML ONE (13:06)
[2018-09-26] MEDS ORDERED: POTASSIUM CL SA 10 MEQ TAB PO ONE (13:06)
[2018-09-26] MEDS ORDERED: KCL 20 MEQ/100 mL IVPB 20 MEQ/100 ML BAG IV ONE (13:07)
--- NOTE | 2018-09-26 13:07 | ER ---
Nurse's Notes [facility] Name: Emelia Payan Age: 78 yrs Sex: Female : 1940 Arrival Date: 09/26/2018 Time: 09:23 Bed 13 Private MD: Dany Iraheta Diagnosis: Dehydration;Hypokalemia;Gastritis, unspecified Presentation: 09/26 09:34 Presenting complaint: Patient states: dizziness, decreased appetite, chest/ abd burning ss x months. 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 reports that patient has also been anxious because she has not been feeling well which is causing her to be unable to sleep. Transition of care: patient was not received from another setting of care. Onset of symptoms is unknown. Risk Assessment: Do you want to hurt yourself or someone else? Patient reports no desire to harm self or others. Initial Sepsis Screen: Does the patient meet any 2 criteria? No. Patient's initial sepsis screen is negative. Does the patient have a suspected source of infection? No. Patient's initial sepsis screen is negative. Care prior to arrival: None. 09:34 Method Of Arrival: Wheelchair ss 09:34 Acuity: EDIS 3 ss Historical: - Allergies: 09:43 Cipro; ss 09:43 Xarelto; ss - Home Meds: 09:43 amlodipine 5 mg oral tab 1 tab once daily [Active]; hydrocortisone 10 mg Oral tab 2 ss tabs twice a day [Active]; Omnitrope subcutaneous subcutaneous once daily [Active]; levothyroxine 112 mcg tab 1 tab once daily [Active]; glipizide 2.5 mg Oral tr24 one tab M, W, F [Active]; liothyronine 5 mcg Oral tab 1 tab once daily [Active]; warfarin 3 mg Oral tab 1 tab once daily [Active]; sotalol 160 mg Oral tab 1 tab 2 times per day [Active]; lorazepam 0.5 mg Oral tab 1 tab bid prn for Anxiety [Active]; fenofibrate oral 48 mg oral 1 tab once daily [Active]; Creon Oral 1 cap [Active]; omeprazole 40 mg Oral cpDR 1 cap once daily [Active]; sucralfate 1 gram Oral tab 1 tab 4 times per day [Active]; - PMHx: 09:43 adrenal insuficiency; CHF; Diabetes - IDDM; DVT; Hyperlipidemia; Hypertension; ss Hypothyroidism; Pancreatitis; Anxiety; - PSHx: 09:26 pituitary gland removal; Lumpectomy; Hysterectomy; Carpal Tunnel Repair; DVT repair; rb1 - Immunization history:: Adult Immunizations up to date. - Social history:: Smoking status: Patient/guardian denies using tobacco. - Ebola Screening: : Patient denies exposure to infectious person Patient denies travel to an Ebola-affected area in the 21 days before illness onset. - Family history:: not pertinent. - Hospitalizations: : No recent hospitalization is reported. Screenin:26 Abuse screen: Denies threats or abuse. Nutritional screening: No deficits noted. rb1 Tuberculosis screening: No symptoms or risk factors identified. Fall Risk None identified. Assessment: 09:26 General: Appears in no apparent distress. comfortable, Behavior is calm, cooperative, rb1 Denies fever. Pain: Complains of pain in epigastric area and right upper quadrant Pain currently is 6 out of 10 on a pain scale. Quality of pain is described as burning, Pain began 2-3 days ago. Neuro: Level of Consciousness is awake, alert, obeys commands, Oriented to person, place, time, situation. Neuro: Reports dizziness, weakness in generalized. Cardiovascular: Capillary refill < 3 seconds is brisk in bilateral fingers. Respiratory: Airway is patent Respiratory effort is even, unlabored, Respiratory pattern is regular, symmetrical. GI: Bowel sounds present X 4 quads. Abd is soft X 4 quads Reports nausea. : No signs and/or symptoms were reported regarding the genitourinary system. Derm: Skin is pink, warm \T\ dry. Musculoskeletal: Range of motion: intact in all extremities, Uses a wheelchair. 09:26 General: Pt. reports losing 10 pounds within the last month.. Pain: Complains of pain rb1 in mid sternal Pain currently is 6 out of 10 on a pain scale. 10:25 Reassessment: Patient appears in no apparent distress at this time. Patient and/or rb1 family updated on plan of care and expected duration. Pain level reassessed. Patient is alert, oriented x 3, equal unlabored respirations, skin warm/dry/pink. Patient states feeling better. 11:24 Reassessment: Patient appears in no apparent distress at this time. No changes from rb1 previously documented assessment. at bedside. 12:19 Reassessment: Patient appears in no apparent distress at this time. Patient and/or rb1 family updated on plan of care and expected duration. Pain level reassessed. Patient is alert, oriented x 3, equal unlabored respirations, skin warm/dry/pink. 12:22 Reassessment: Pt. went to CT. rb1 13:17 Reassessment: Patient appears in no apparent distress at this time. No changes from rb1 previously documented assessment. Discharge pending due to Potassium infusing. Currently infusing at 40 ml/h due to it burning at 50 ml/h per pt. report. 14:15 Reassessment: Patient appears in no apparent distress at this time. Patient and/or rb1 family updated on plan of care and expected duration. Pain level reassessed. Patient is alert, oriented x 3, equal unlabored respirations, skin warm/dry/pink. Potassium is still infusing, discharge pending Patient denies pain at this time. 15:15 Reassessment: Patient appears in no apparent distress at this time. No changes from rb1 previously documented assessment. Potassium is almost finished. Vital Signs: 09:43 BP 156 / 63; Pulse 72; Resp 16; Temp 97.9(TE); Pulse Ox 99% on R/A; Weight 76.2 kg; ss Height 5 ft. 4 in. (162.56 cm); Pain 6/10; 10:43 BP 172 / 79; Pulse 57; Resp 16; Pulse Ox 99% on R/A; rb1 11:30 BP 127 / 73; Pulse 60; Resp 16; Pulse Ox 99% on R/A; Pain 4/10; rb1 12:00 BP 139 / 66; Pulse 63; Resp 15; Pulse Ox 100% on R/A; rb1 13:00 BP 172 / 66; Pulse 60; Resp 15; Pulse Ox 100% on R/A; rb1 14:00 BP 146 / 72; Pulse 63; Resp 15; Pulse Ox 99% on R/A; rb1 15:00 BP 149 / 68; Pulse 61; Resp 16; Pulse Ox 99% on R/A; Pain 0/10; rb1 15:35 BP 142 / 72; Pulse 59; Resp 17; Pulse Ox 99% on R/A; Pain 0/10; rb1 09:43 Body Mass Index 28.84 (76.20 kg, 162.56 cm) ED Course: 09:23 Patient arrived in ED. sb2 09:23 Dany Iraheta DO is Private Physician. sb2 09:26 Patient has correct armband on for positive identification. Bed in low position. Call rb1 light in reach. Side rails up X 1. Pulse ox on. NIBP on. 09:35 Adan Bolden MD is Attending Physician. rn 09:36 Triage completed. ss 09:36 Olivia Ambrocio, ODILON is Primary Nurse. rb1 09:43 Arm band placed on right wrist. ss 09:55 Missed attempt(s): 22 gauge in right antecubital area. rb1 10:03 EKG done, by lubrication technician. reviewed by Adan Bolden MD. dt2 10:03 Missed attempt(s): 22 gauge in right forearm. rb1 10:21 Inserted saline lock: 22 gauge in left antecubital area, using aseptic technique. Blood tw2 collected. 12:36 CT Abd/Pelvis - W/Contrast In Process Unspecified. EDMS 13:50 Awaiting: completion of IV potassium PRIOR to discharge. tw2 15:40 No provider procedures requiring assistance completed. IV discontinued, intact, rb1 bleeding controlled, No redness/swelling at site. Pressure dressing applied. Administered Medications: 10:15 Drug: GI Cocktail without - (Maalox Suspension 30 ml, Lidocaine Liquid 2 % 15 rb1 ml) Route: PO; 10:35 Follow up: Response: No adverse reaction rb1 13:05 Drug: NS 0.9% 500 ml Route: IV; Rate: bolus; Site: left antecubital; rb1 14:15 Follow up: IV Status: Completed infusion rb1 13:05 Drug: Potassium Chloride 40 mEq Route: PO; rb1 13:35 Follow up: Response: No adverse reaction rb1 13:05 Drug: Potassium Chloride 20 mEq Route: IV; Rate: calculated rate; Site: left rb1 antecubital; 15:30 Follow up: Response: No adverse reaction; IV Status: Completed infusion rb1 14:21 Drug: NS 0.9% 250 ml Route: IV; Rate: Titrate; Site: left antecubital; Point of Care Testing: Guaiac: 12:11 Stool Guaiac: Negative; Stool Hemoccult Control: Pass; rb1 Output: 10:52 Urine: 1ml (Voided); Total: 1ml. rb1 11:11 Stool: 1 (Loose Stool) ; Total: 1ml. rb1 11:32 Stool: 1 (Loose Stool) ; Total: 1ml. rb1 11:58 Stool: 1 (Loose Stool) ; Total: 1ml. rb1 11:58 Urine: 1ml (Voided); Total: 2ml. rb1 12:11 Stool: 1 (Loose Stool) ; Total: 2ml. rb1 12:54 Stool: 1 (Loose Stool) ; Total: 2ml. rb1 13:19 Stool: 1 (Loose Stool) ; Total: 2ml. rb1 14:04 Stool: 1 (Loose Stool) ; Total: 2ml. rb1 14:35 Urine: 1ml (Voided); Stool: 1 (Loose Stool) ; Total: 3ml. rb1 Outcome: 13:06 Discharge ordered by . rn 15:40 Patient left the ED. rb1 15:40 Discharged to home via wheelchair, with significant other. rb1 15:40 Condition: stable 15:40 Discharge instructions given to patient, Instructed on discharge instructions, follow up and referral plans. Demonstrated understanding of instructions, follow-up care, Prescriptions given X none Signatures: Dispatcher [employer] EDMS Adan Bolden MD MD rn Smirch, Shelby, RN RN ss Olivia Ambrocio, RN RN rb1 Ashley Wharton RN RN tw2 Denise Ohara sb2 Toya Jason dt2
--- NOTE | 2018-09-26 13:07 | EDPHYS ---
Physician Documentation [facility] Name: Emelia Payan Age: 78 yrs Sex: Female : 1940 Arrival Date: 09/26/2018 Time: 09:23 Bed 13 Private MD: Dany Iraheta ED Physician Adan Bolden HPI: 09/26 10:04 This 78 yrs old Female presents to ER via Wheelchair with complaints of rn Dizziness, Abd Pain > 50 y/o. 10:04 This 78 yrs old Female presents to ER via Wheelchair with complaints of rn Dizziness, Abd Pain > 50 y/o. 10:04 The patient presents with dizziness. rn 10:04 The patient presents with abdominal pain in the epigastric area. Onset: The rn symptoms/episode began/occurred 2 month(s) ago. The symptoms do not radiate. Associated signs and symptoms: Pertinent positives: anorexia, nausea, Pertinent negatives: blood in stools, fever, shortness of breath, vomiting blood. The symptoms are described as achy, crampy. Modifying factors: The symptoms are alleviated by nothing, the symptoms are aggravated by nothing. Severity of pain: At its worst the pain was mild in the emergency department the pain is unchanged. The patient has experienced similar episodes in the past. Reports intermittent abd pain for a at least 2 months, seen here, negative workup, has had pancreatitis in past, multiple neg gallbladder u/s, been scoped by Dr. Bush/seng, no blood in stools, recently stopped taking antacid. No vomiting. Reports early satiety and 10 lb weight loss this month.. Historical: - Allergies: 09:43 Cipro; ss 09:43 Xarelto; ss - Home Meds: 09:43 amlodipine 5 mg oral tab 1 tab once daily [Active]; hydrocortisone 10 mg Oral tab 2 ss tabs twice a day [Active]; Omnitrope subcutaneous subcutaneous once daily [Active]; levothyroxine 112 mcg tab 1 tab once daily [Active]; glipizide 2.5 mg Oral tr24 one tab M, W, F [Active]; liothyronine 5 mcg Oral tab 1 tab once daily [Active]; warfarin 3 mg Oral tab 1 tab once daily [Active]; sotalol 160 mg Oral tab 1 tab 2 times per day [Active]; lorazepam 0.5 mg Oral tab 1 tab bid prn for Anxiety [Active]; fenofibrate oral 48 mg oral 1 tab once daily [Active]; Creon Oral 1 cap [Active]; omeprazole 40 mg Oral cpDR 1 cap once daily [Active]; sucralfate 1 gram Oral tab 1 tab 4 times per day [Active]; - PMHx: 09:43 adrenal insuficiency; CHF; Diabetes - IDDM; DVT; Hyperlipidemia; Hypertension; ss Hypothyroidism; Pancreatitis; Anxiety; - PSHx: 09:26 pituitary gland removal; Lumpectomy; Hysterectomy; Carpal Tunnel Repair; DVT repair; rb1 - Immunization history:: Adult Immunizations up to date. - Social history:: Smoking status: Patient/guardian denies using tobacco. - Ebola Screening: : Patient denies exposure to infectious person Patient denies travel to an Ebola-affected area in the 21 days before illness onset. - Family history:: not pertinent. - Hospitalizations: : No recent hospitalization is reported. ROS: 10:04 Constitutional: Negative for fever, chills, and weight loss, Eyes: Negative for injury, rn pain, redness, and discharge, Neck: Negative for injury, pain, and swelling, Cardiovascular: Negative for chest pain, palpitations, and edema, Respiratory: Negative for shortness of breath, cough, wheezing, and pleuritic chest pain, Abdomen/GI: Negative for vomiting, diarrhea, and constipation, MS/Extremity: Negative for injury and deformity, Skin: Negative for injury, rash, and discoloration, Neuro: Negative for headache, numbness, tingling, and seizure. Exam: 10:04 Constitutional: This is a well developed, well nourished patient who is awake, alert, rn and in no acute distress. Head/Face: Normocephalic, atraumatic. ENT: MMM Cardiovascular: Irregular rhythm, no murmur, regular rate Respiratory: Lungs have equal breath sounds bilaterally, clear to auscultation and percussion. No rales, rhonchi or wheezes noted. No increased work of breathing, no retractions or nasal flaring. Abdomen/GI: soft, mild epigastric tenderness, no rebound, no masses Skin: Warm, dry with normal turgor. Normal color with no rashes, no lesions, and no evidence of cellulitis. MS/ Extremity: Pulses equal, no cyanosis. Neurovascular intact. Full, normal range of motion. Equal circumference. Neuro: Awake and alert, GCS 15, oriented to person, place, time, and situation. Cranial nerves II-XII grossly intact. Motor strength 5/5 in all extremities. Sensory grossly intact. Vital Signs: 09:43 BP 156 / 63; Pulse 72; Resp 16; Temp 97.9(TE); Pulse Ox 99% on R/A; Weight 76.2 kg; ss Height 5 ft. 4 in. (162.56 cm); Pain 6/10; 10:43 BP 172 / 79; Pulse 57; Resp 16; Pulse Ox 99% on R/A; rb1 11:30 BP 127 / 73; Pulse 60; Resp 16; Pulse Ox 99% on R/A; Pain 4/10; rb1 12:00 BP 139 / 66; Pulse 63; Resp 15; Pulse Ox 100% on R/A; rb1 13:00 BP 172 / 66; Pulse 60; Resp 15; Pulse Ox 100% on R/A; rb1 14:00 BP 146 / 72; Pulse 63; Resp 15; Pulse Ox 99% on R/A; rb1 15:00 BP 149 / 68; Pulse 61; Resp 16; Pulse Ox 99% on R/A; Pain 0/10; rb1 15:35 BP 142 / 72; Pulse 59; Resp 17; Pulse Ox 99% on R/A; Pain 0/10; rb1 09:43 Body Mass Index 28.84 (76.20 kg, 162.56 cm) ss MDM: 09:35 Patient medically screened. rn 13:03 Differential diagnosis: diverticulitis, gastritis, gastroesophageal reflux disease, rn non-specific abd pain, pancreatitis. 13:04 Data reviewed: vital signs, nurses notes, lab test result(s), EKG, radiologic studies, rn CT scan, and as a result, I will discharge patient. Counseling: I had a detailed discussion with the patient and/or guardian regarding: the historical points, exam findings, and any diagnostic results supporting the discharge/admit diagnosis, lab results, radiology results, the need for outpatient follow up, to return to the emergency department if symptoms worsen or persist or if there are any questions or concerns that arise at home. Response to treatment: the patient's symptoms have mildly improved after treatment, and as a result, I will discharge patient. Special discussion: I discussed with the patient/guardian in detail that at this point there is no indication for admission to the hospital. It is understood, however, that if the symptoms persist or worsen the patient needs to return immediately for re-evaluation. ED course: Pt improved with GI cocktail, normal w/u here excet for elevated INR and low potassium. No signs of bleeding, stool negative for blood, normal h/h, will dc home witholding coumadin for 2 days, has repeat INR check in 2 days with cardiology. NO acute findings on CT abdomen. . 09/26 09:46 Order name: Basic Metabolic Panel; Complete Time: 11:20 rn 09/26 09:46 Order name: CBC with Diff; Complete Time: 11:12 rn 09/26 09:46 Order name: Hepatic Function; Complete Time: 11:20 rn 09/26 09:46 Order name: Lipase; Complete Time: 11:20 rn 09/26 09:46 Order name: PT-INR; Complete Time: 11:12 rn 09/26 12:40 Order name: Occult Blood--Ancillary bd 09/26 09:46 Order name: IV Saline Lock; Complete Time: 10:34 rn 09/26 09:46 Order name: CT Abd/Pelvis - W/Contrast; Complete Time: 12:54 rn 09/26 09:46 Order name: EKG; Complete Time: 09:47 rn 09/26 09:46 Order name: Labs collected and sent; Complete Time: 10:34 rn 09/26 09:46 Order name: EKG - Nurse/Tech; Complete Time: 09:51 rn Administered Medications: 10:15 Drug: GI Cocktail without - (Maalox Suspension 30 ml, Lidocaine Liquid 2 % 15 rb1 ml) Route: PO; 10:35 Follow up: Response: No adverse reaction rb1 13:05 Drug: NS 0.9% 500 ml Route: IV; Rate: bolus; Site: left antecubital; rb1 14:15 Follow up: IV Status: Completed infusion rb1 13:05 Drug: Potassium Chloride 40 mEq Route: PO; rb1 13:35 Follow up: Response: No adverse reaction rb1 13:05 Drug: Potassium Chloride 20 mEq Route: IV; Rate: calculated rate; Site: left rb1 antecubital; 15:30 Follow up: Response: No adverse reaction; IV Status: Completed infusion rb1 14:21 Drug: NS 0.9% 250 ml Route: IV; Rate: Titrate; Site: left antecubital; Point of Care Testing: Guaiac: 12:11 Stool Guaiac: Negative; Stool Hemoccult Control: Pass; rb1 Disposition: 09/26/18 13:06 Discharged to Home. Impression: Dehydration, Hypokalemia, Gastritis, unspecified. - Condition is Stable. - Discharge Instructions: Dehydration, Adult, Gastritis, Adult, Hypokalemia. - Medication Reconciliation Form, Thank You Letter, Antibiotic Education, Prescription Opioid Use form. - Follow up: Private Physician; When: As needed; Reason: Recheck today's complaints, Re-evaluation by your physician. - Problem is new. - Symptoms have improved. Signatures: Dispatcher [employer] EDMS Adan Bolden MD MD rn Smirch, Shelby, RN RN Olivia Dutta RN RN rb1 Corrections: (The following items were deleted from the chart) 15:40 13:06 09/26/2018 13:06 Discharged to Home. Impression: Dehydration; Hypokalemia; rb1 Gastritis, unspecified. Condition is Stable. Forms are Medication Reconciliation Form, Thank You Letter, Antibiotic Education, Prescription Opioid Use. Follow up: Private Physician; When: As needed; Reason: Recheck today's complaints, Re-evaluation by your physician. Problem is new. Symptoms have improved. rn
--- NOTE | 2018-09-26 13:25 | EKG ---
Test Date: 2018-09-26 Test Time: 09:45:05 Transportation Technician: NERY MEASUREMENT RESULTS: Intervals: Rate: 63 TN: 134 QRSD: 90 QT: 482 QTc: 493 [place]: P: 43 TN: 134 QRS: 18 T: 11 INTERPRETIVE STATEMENTS: Normal sinus rhythm with sinus arrhythmia Nonspecific T wave abnormality Prolonged QT Abnormal ECG Compared to ECG 09/10/2018 14:39:17 T-wave abnormality now present Prolonged QT interval now present Electronically Signed On 09-26-18 13:24:01 [employer] by Heladio Diaz
[2018-09-26] MEDS ORDERED: NA CHLORIDE 0.9% 250 ML ONE (14:26)
[2018-09-26 15:52] VITALS: TEMP 97.9
[2018-09-26 15:56] VITALS: O2SAT 100
[2018-09-26 15:57] VITALS: BP 172/66
== END 2018-09-26 15:40 | disposition home or self-care (01) ==
LOC: ER 09:20
DX: E86.0 Dehydration (principal); E87.6 Hypokalemia; K29.70 Gastritis, unspecified, without bleeding; R94.31 Abnormal electrocardiogram [ECG] [EKG]; E11.9 Type 2 diabetes mellitus without complications; E78.5 Hyperlipidemia, unspecified; E03.9 Hypothyroidism, unspecified; E27.40 Unspecified adrenocortical insufficiency; I11.0 Hypertensive heart disease with heart failure; I50.9 Heart failure, unspecified; F41.9 Anxiety disorder, unspecified; F32.9 Major depressive disorder, single episode, unspecified; Z79.84 Long term (current) use of oral hypoglycemic drugs; Z79.01 Long term (current) use of anticoagulants; Z79.899 Other long term (current) drug therapy; Z86.718 Personal history of other venous thrombosis and embolism
CPT/HCPCS: 36415; 74177; 80048; 80076; 82272; 83690; 85025; 85610; 93005; 96365; 96366; 96375; 99284; Q9967

== ENCOUNTER 2018-09-27 09:34 | Emergency (ER) | payer OTHER ==
[2018-09-27] MEDS ORDERED: DIAZEPAM 5 MG TABLET ONE (10:05)
--- OUTSIDE RECORDS SUMMARY | 2018-09-27 10:05 | XMS REPORT | Clinical Summary ---
:1940 Author Organization [facility] Address [address] [place] [address] Care Team Providers Name Role Phone Unavailable [...] Gastroenterology Marc Fernandez MD 03/14/2018 Surgery Gastroenterology [facility] UPPER ENDOSCOPY,BIOPSY [facility] 03/14/2018 Hospital Gastroenterology [facility] Encounter [facility] 03/13/2018 Hospital Pre-Admission Testing [facility] Encounter [facility] [place], [facility] Preadmit Phone 01/13/2018 Hospital Intensive [...] Medicine Samaria Seals Tachycardia MD Natanael after 09/26/2017 Family History Medical History Relation Name Comments [...] CULTURE Routine 01/14/2018 1:26 AM CDT after 09/26/2017 Results REPORT OF PROCEDURE - ENDOSCOPY URL (03/14/2018 12:19 PM CDT) Narrative Performed At POC-Glucose meter (03/14/2018 11:55 AM CDT)Only the most recent of17 resultswithin the time period is included. POC-Glucose Meter 75Comment: TESTED AT 70 - 110 mg/dL [facility] [address] [facility] [id number] Specimen Blood Performing Organization Address City/State/Zipcode Phone Number [place] [id number] [place], [place] [phone] CENTER Tissue Exam (03/14/2018 11:15 AM CDT) Case Report Surgical Pathology Report Case: [id number] [facility] Authorizing Provider:Luiz Hayesected: 03/14/2018 1115 [facility] Ordering Location: [facility] Endoscopy Received: 03/14/2018 1351 Services Pathologist: Mara Barboza MD Specimens: A) - Polyp, Duodenum B) - Stomach,Antrum, bx C) - Biopsy, Gastric, gastric body D) - Biopsy, Esophagus, random ADDENDUM THIS ADDENDUM IS ISSUED TO REPORT THE RESULT OF IMMUNOHISTOCHEMICAL STUDY FOR HELICOBACTER PYLORI OM SPECIMEN B: [facility] - NEGATIVE [facility] CPT CODE: 40151 DIAGNOSIS A. DUODENUM, ENDOSCOPIC POLYPECTOMY: [facility] - COMPATIBLE WITH PEPTIC DUODENITIS [facility] - NO FEATURES OF CELIAC DISEASE [...] MALIGNANCY SEEN Signing Pathologist Direct Phone Line: [phone] CPT Code(s) 68977 X 4; 91540 X 2 [facility] SPECIMEN SOURCE A. Polyp, duodenum. B. Stomach [facility] antrum. C. Biopsy, gastric, [facility] description gastric body. D. Biopsy, esophagus, description random GROSS DESCRIPTION Part A. Received in formalin, labeled "polyp, duodenum", is a 0.5 x 0.4 x 0.2 cm polypoid shaped brown-chavez fragment of soft tissue. The base is inked green, and the polyp is bisected and submitted entirely in one cassette (A1). [facility] Part B. Received in formalin labeled "stomach, [...] incorporated in the diagnostic report above: [facility] WARTHIN-STARRY X 2 [facility] Specimen Tissue - Polyp, Duodenum Performing Organization Address City/State/Zipcode Phone Number [facility] [address] [place] [address] [phone] CENTER EKG-SCANNED (01/20/2018 3:11 PM CDT) Narrative Performed At RHYTHM STRIP - SCAN (01/20/2018 3:11 PM CDT) Narrative Performed At ECHOCARDIOGRAM REPORT - SCAN (01/19/2018 2:21 PM CDT) Narrative Performed At 2D Echo W/Doppler(CW/PW/Color) (01/18/2018 1:59 PM CDT) Ejection Fraction [facility] Narrative Performed At Transthoracic Echocardiography Report (TTE) [facility] ECHO HEART[facility] Demographics Patient NameDANA PAYAN Date of Study 01/18/2018 GenderFemale Visit [id number] [place] Number [id number] Number Date of 1940 Referring Physician MORENA James Age 77 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 WBC 4.8 3.5 - 10.5 K/L [facility] RBC 3.28 (L) 3.93 - 5.22 M/L [facility] Hemoglobin 10.4 (L) 11.2 - 15.7 GM/DL [facility] Hematocrit 32.7 (L) 34.1 - 44.9 % [facility] MCV 99.7 (H) 79.4 - 94.8 fL [facility] MCH 31.7 25.6 - 32.2 pg [facility] MCHC 31.8 (L) 32.2 - 35.5 GM/DL [facility] RDW 14.7 (H) 11.7 - 14.4 % [facility] Platelets 141 (L) 150 - 450 K/CU MM [facility] MPV 11.2 9.4 - 12.3 fL [facility] nRBC 0 0 - 0 /100 WBC [facility] % Neutros 67 % [facility] % Lymphs 26 % [facility] % Monos 5 % [facility] % Eos 1 % [facility] % Baso 0 % [facility] # Neutros 3.21 1.56 - 6.13 K/L [facility] # Lymphs 1.24 1.18 - 3.74 K/L [facility] # Monos 0.23 (L) 0.24 - 0.36 K/L [facility] # Eos 0.06 0.04 - 0.36 K/L [facility] # Baso 0.02 0.01 - 0.08 K/L [facility] Immature Granulocytes-Relative 1 0 - 1 % [facility] Specimen Blood - Arm, Left Performing Organization Address City/State/Zipcode Phone Number [facility] [address] [place] [address] [phone] CENTER Prothrombin time/INR (01/18/2018 3:49 AM CDT)Only the most recent of7 resultswithin the time period is included. Protime 23.7 (H) 11.7 - 14.7 seconds [facility] INR 2.1 <=5.9 [facility] Specimen Blood - Arm, Left Narrative Performed At [facility] RECOMMENDED COUMADIN/WARFARIN INR THERAPY RANGES STANDARD DOSE: 2.0 - 3.0 Includes: PROPHYLAXIS for venous thrombosis, systemic embolization; TREATMENT for venous thrombosis and/or pulmonary embolus. HIGH RISK: Target INR is 2.5-3.5 for patients with mechanical heart valves. Performing Organization Address City/[facility]/Zipcode Phone Number [phone] [place] [address] [place] Magnesium (01/18/2018 3:49 AM CDT)Only the most recent of8 resultswithin the time period is included. Magnesium 1.7 1.6 - 2.6 mg/dL [facility] Specimen Blood - Arm, Left Performing Organization Address [facility] Cent[facility]ode Phone Number [address] [address] [phone] [place] Comprehensive metabolic panel (01/18/2018 3:49 AM CDT)Only the most recent of6 resultswithin the time period is included. Protein, Total 5.2 (L) 6.0 - 8.3 gm/dL [facility] Albumin 3.0 (L) 3.5 - 5.0 g/dL [facility] Alkaline Phosphatase 39 (L) 40 - 150 U/L [facility] Total Bilirubin 0.4 0.2 - 1.2 mg/dL [facility] Sodium 145 136 - 145 meq/L [facility] Potassium 3.6 3.5 - 5.1 meq/L [facility] Chloride 109 (H) 98 - 107 meq/L [facility] CO2 28 22 - 29 meq/L [facility] BUN 8 7 - 21 mg/dL [facility] Creatinine 0.70 0.57 - 1.25 mg/dL [facility] Glucose 107 (H) 70 - 105 mg/dL [facility] Calcium 8.4 8.4 - 10.2 mg/dL [facility] AST 9 5 - 34 U/L [facility] ALT <6 (L) 6 - 55 U/L [facility] EGFR 81Comment: ESTIMATED GFR mL/min/1.[address] [facility] IS NOT ACCURATE [facility] CREATININE CLEARANCE IN PREDICTING GLOMERULAR FILTRATION RATE. ESTIMATED GFR IS NOT APPLICABLE FOR DIALYSIS PATIENTS. Specimen Blood - Arm, Left Performing Organization Address [facility] Cent[facility]ode Phone Number [facility] [address] [place] [address] CENTER ECG 12 lead (01/17/2018 7:28 AM CDT)Only the most recent of2 resultswithin the time period is included. Narrative Performed At Ventricular Rate 62 BPM GE MUSE Atrial Rate 62 BPM P-R Interval 126 ms QRS Duration 72 ms Q-T Interval 392 ms QTC Calculation(Bazett) 397 ms P [place] 43 degrees R [place] 0 degrees T [place] 4 degrees Normal sinus rhythm Normal ECG [...] 392 ms QTC Calculation(Bazett) 397 ms P [place] 43 degrees R [place] 0 degrees T [place] 4 degrees Normal sinus rhythm Normal ECG When compared with ECG of 14-JAN-2018 07:47, Sinus rhythm has replaced Atrial fibrillation Vent. rate has decreased BY 67 BPM Confirmed by Myriam CABELLO BASANT ([id number]) on 01/17/2018 9:57:49 PM Performing Organization Address [facility] Centercomn Phone Number [employer] MUSE T3, free (01/17/2018 3:19 AM CDT) T3, Free 1.31 (L) 1.71 - 3.71 pg/mL [facility] Specimen Blood - Central Venous Line Performing Organization Address City/[facility] Centercode Phone Number [facility] [address] [address] CENTER T3 (01/17/2018 3:19 AM CDT) T3, Total 41 (L) 48 - 159 ng/dL [facility] Specimen Blood - Central Venous Line Performing Organization Address City/[facility] Centercode Phone Number [address] [address] CENTER Lipase (01/17/2018 3:19 AM CDT)Only the most recent of2 resultswithin the time period is included. Lipase 471 (H) 8 - 78 U/L [facility] Specimen Blood - Central Venous Line Performing Organization Address [facility] Phone Number [address] [address] [phone] [place] Basic Metabolic Panel (01/16/2018 4:26 PM CDT) Sodium 143 136 - 145 meq/L [facility] Potassium 4.1 3.5 - 5.1 meq/L [facility] Chloride 109 (H) 98 - 107 meq/L [facility] CO2 24 22 - 29 meq/L [facility] BUN 9 7 - 21 mg/dL [facility] Creatinine 0.74 0.57 - 1.25 mg/dL [facility] Glucose 249 (H) 70 - 105 mg/dL [facility] Calcium 8.1 (L) 8.4 - 10.2 mg/dL [facility] EGFR 76Comment: ESTIMATED GFR IS mL/min/1.73 sq m [facility] NOT ACCURATE CREATININE [facility] CLEARANCE IN PREDICTING GLOMERULAR FILTRATION RATE. ESTIMATED GFR IS NOT APPLICABLE FOR DIALYSIS PATIENTS. Specimen Blood Performing Organization Address [facility] Centercode Phone Number [address] [address] [place] Clostridium difficile [facility] Toxin (01/16/2018 4:08 AM CDT) C. Difficle Toxin Negative Negative [facility] C. Difficile [facility] Antigen Positive (A)Comment: C. Negative [facility] difficile present but toxin [facility]ENTER not detected. Indicates colonization with non-toxigenic strain or level of toxin below detectable levels. No need for enteric isolation. Treatment is rarely needed (only when strong clinical suspicion for Clostridium difficile infection) Specimen Stool - Stool Narrative Performed At Testing performed by [employer] [facility] Assay.For GDH, published sensitivity of the assay is 98.7% compared to cytotoxicity testing.For Toxin AB, published sensitivity is 87.8% and specificity 99.4% compared to cytotoxicity testing. Verification of kit performance was done by the [facility] Microbiology Lab prior to clinical use. Performing Organization Address City/[facility] Centercode Phone Number [address] [address] [phone] CENTER Potassium (01/15/2018 5:00 PM CDT)Only the most recent of2 resultswithin the time period is included. Potassium 4.2 3.5 - 5.1 meq/L [facility] Specimen Blood Performing Organization Address [facility] Centercode Phone Number [address] [address] [phone] CENTER Troponin I (01/14/2018 12:14 PM CDT)Only the most recent of2 resultswithin the time period is included. Troponin I 0.02 0.00 - 0.03 ng/mL [facility] Specimen Blood Narrative Performed At [facility] Troponin I (TnI) levels must be interpreted [...] tachyarrhythmia. Performing Organization Address City/State/Zipcode Phone Number [facility] [address] [place] [address] [phone] CENTER B-type Natriuretic Factor (BNP) (01/14/2018 11:08 AM CDT) BNP 975 (H) 0 - 100 pg/mL [facility] Specimen Blood Performing Organization Address [facility]/Zipcode Phone Number [facility] [address] [place] [address] [place] US abdomen limited (01/14/2018 6:45 AM CDT) Narrative Performed At FINAL REPORT [employer] INDICATION: 77-year-old female with abdominal pain and [...] MD Report Verified Date/Time:01/14/2018 10:23:02 Reading Location: [facility] C013X Ortho Consult Reading Room Procedure Note [...] Report Verified Date/Time: 01/14/2018 10:23:02 Reading Location: [facility] C013X Ortho Consult Reading Room Performing Organization Address City/[facility]/Zipcode Phone Number [facility] Vitamin B12 and Folate (01/14/2018 6:34 AM CDT) Vitamin B12 1,276 (H) 213 - 816 pg/mL [facility] Folate 8.8 >=7.0 ng/mL [facility] Specimen Blood - Line, Venous Performing Organization Address City/[facility]/Zipcode Phone Number [facility] [address] [place] [address] CENTER TSH/Free T4 If Indicated (01/14/2018 6:34 AM CDT) TSH 0.02 (L) 0.35 - 4.94 uIU/mL [facility] Specimen Blood - Line, Venous Performing Organization Address [facility] Centercomn Phone Number [address] [address] [place] T4, free (01/14/2018 6:34 AM CDT) Free T4 0.83 0.70 - 1.48 ng/dL [facility] Specimen Blood - Line, Venous Performing Organization Address [facility]com[facility] Phone Number [address] [address] [phone] [place] Lipid panel (01/14/2018 6:34 AM CDT) Triglycerides 171 mg/dL [facility] Cholesterol 123 mg/dL [facility] HDL 25 mg/dL [facility] LDL Calculated 64 mg/dL [facility] Specimen Blood - Line, Venous Narrative Performed At [facility] Triglyceride Reference Range: Low Risk <150 [id number] High Risk 200-499 Very High Risk>=500 Cholesterol Reference Range: Low Risk <200 [id number] High Risk>240 HDL Cholesterol Reference Range: Low Risk >=60 High Risk <40 LDL Cholesterol Reference Range: Optimal<100 Near [id number] Very High >=190 Performing Organization Address [facility]com[facility] Phone Number [address] [address] [phone] CENTER Blood culture (01/14/2018 1:28 AM CDT)Only the most recent of2 resultswithin the time period is included. Result No growth in 5 days [facility] Specimen Blood - Line, Venous Performing Organization Address [facility]com[facility] Phone Number [address] [address] [phone] [place] Urinalysis w/Microscopic (01/14/2018 1:28 AM CDT) Color, UA Yellow [facility] Clarity, UA Clear [facility] Specific [place], UA 1.043 (H) 1.001 - 1.035 [facility] pH, UA 6.5 5.0 - 8.0 [facility] Protein, UA 20 mg/dL (A) Negative [facility] Glucose, UA 1000 mg/dL (A) Negative [facility] Ketones, UA Negative Negative [facility] Bilirubin, UA Negative Negative [facility] Blood, UA Trace (A) Negative [facility] Nitrite, UA Negative Negative [facility] Leukocytes, UA Negative Negative [facility] Urobilinogen, UA 0.2 0.2 - 1.0 mg/dL [facility] RBC, UA 1 /HPF [facility] WBC, UA 3 /HPF [facility] Bacteria, UA Rare [facility] Specimen Source Urine, Taylor [facility] Specimen Urine - Urine, Taylor Performing Organization Address City/[facility]/Zipcode Phone Number [address] [address] [place] Urine culture (01/14/2018 1:28 AM CDT) Result No growth [facility] Specimen Urine - Urine, Taylor Performing Organization Address City/[facility]/Zipcode Phone Number [address] [address] [phone] [place] Procalcitonin (01/14/2018 1:26 AM CDT) Procalcitonin 0.41 (H) <0.05 ng/mL [facility] Specimen Blood - Central Venous Line Narrative Performed At [facility] SEPSIS RISK (ng/mL) Low:0.05-0.50 Intermediate: 0.51-2.00 High: >=2.01 Performing Organization Address [facility]com[facility] Phone Number [address] [address] [place] Lactic acid, venous, whole blood (01/14/2018 1:26 AM CDT) Lactate, Venous 1.3Comment: Specimen 0.5 - 2.2 mmol/L [facility] slightly hemolyzed [facility] Specimen Blood - Central Venous Line Narrative Performed At [facility] Effective 01/07/2016: Units/Reference Range Change New: 0.5-2.2 mmol/LPrevious: 5-20 mg/dL Performing Organization Address [facility] Phone Number [address] [address] [place] aPTT (01/14/2018 1:26 AM CDT) PTT 32.4 22.5 - 36.0 seconds [facility] Specimen Blood - Central Venous Line Performing Organization Address [facility] Phone Number [address] [address] [phone] [place] Amylase (01/14/2018 1:26 AM CDT) Amylase 226 (H) 25 - 125 U/L [facility] Specimen Blood - Central Venous Line Performing Organization Address [facility] Phone Number [address] [address] [place] after 09/26/2017 Insurance Payer Benefit Plan / Group Subscriber ID Type Phone Address MEDICARE MEDICARE A B xxxxxxxxxx Medicare AETNA - MGD CARE AETNA INDEMNITY NON CONTR xxxxxxxxxx Comm Advance Directives For more information, please contact:[address] [place], [place] [phone] Code Status Date Activated Date Inactivated Comments Full Code 01/14/2018 12:36 AM 01/18/2018 6:55 PM This code status was determined by: Patient
--- OUTSIDE RECORDS SUMMARY | 2018-09-27 10:06 | XMS REPORT ---
:1940 [facility] [address] [place] [address] [address]. [address] [place] [address] Care Team Providers Name Role Phone MACIEJ VILLA Unavailable Unavailable RANCHO SANDOVAL Unavailable Unavailable Problems This patient has no known problems. Allergies, Adverse Reactions, Alerts This patient has no known allergies or adverse reactions. Medications This patient has no known medications. Results Test Description Test Time Test Comments Text Results Atomic Results Result Comments TISSUE EXAM 2018-03-20 13:06:00 Surgical Pathology Report Case: [id number] Authorizing Provider: Maciej Villa Collected: 03/14/2018 1115 Ordering Location: [facility] Endoscopy Received: 03/14/2018 1351 Services Pathologist: Mara Barboza MD Specimens: A) - Polyp, Duodenum B) - Stomach, Antrum, bx C) - Biopsy, Gastric, gastric body D) - Biopsy, Esophagus, random THIS ADDENDUM IS ISSUED TO REPORT THE RESULT OF IMMUNOHISTOCHEMICAL STUDY FOR HELICOBACTER PYLORI OM SPECIMEN B: - NEGATIVE CPT CODE: [id number] electronically signed by Mara Barboza MD on [...] MALIGNANCY SEEN Signing Pathologist Direct Phone Line: [phone] signed by Mara Barboza MD on 03/17/2018 at 10:35 [id number] X 4; [id number] X 2A. Polyp, duodenum. B. Stomach antrum. [...] (BEAKER) (test 75 mg/dL 70-110 TESTED AT [facility] [address] jeep=5261) [facility] [address] BLOOD [id number] 06:00:00 Test Item Value Reference Range Comments CULTURE (BEAKER) (test tejf=3249) No growth in 5 days BLOOD [id number] 06:00:00 Test Item Value Reference Range Comments CULTURE (BEAKER) (test levt=6582) No growth in 5 days POCT-GLUCOSE [id number] 12:32:00 Test Item Value Reference Range Comments POC-GLUCOSE METER (BEAKER) 217 mg/dL 70-110 TESTED AT [facility] [address] (test cqiu=6973) [facility] [address] POCT-GLUCOSE [id number] 08:36:00 Test Item Value Reference Range Comments POC-GLUCOSE METER (BEAKER) 92 mg/dL 70-110 TESTED AT [place] [id number] [facility] (test cgsl=7355) [facility] [address] COMPREHENSIVE METABOLIC [id number] 04:59:00 Test Item Value Reference Range Comments TOTAL PROTEIN (BEAKER) 5.2 gm/dL 6.0-8.3 (test vnso=798) ALBUMIN (BEAKER) (test 3.0 g/dL 3.5-5.0 wffe=7187) ALKALINE PHOSPHATASE 39 U/L 40-150 (BEAKER) (test uvkj=719) BILIRUBIN TOTAL (BEAKER) 0.4 mg/dL 0.2-1.2 (test gndw=666) SODIUM (BEAKER) (test 145 meq/L 136-145 yfkl=604) POTASSIUM (BEAKER) (test 3.6 meq/L 3.5-5.1 vhvi=767) CHLORIDE (BEAKER) (test 109 meq/L 98-107 eqwf=925) CO2 (BEAKER) (test 28 meq/L 22-29 rolj=739) BLOOD UREA NITROGEN 8 mg/dL 7-21 (BEAKER) (test xqpj=312) CREATININE (BEAKER) (test 0.70 mg/dL 0.57-1.25 twyb=001) GLUCOSE RANDOM (BEAKER) 107 mg/dL 70-105 (test ehmh=818) CALCIUM (BEAKER) (test 8.4 mg/dL 8.4-10.2 sajf=955) AST (SGOT) (BEAKER) (test 9 U/L 5-34 fjjn=960) ALT (SGPT) (BEAKER) (test < U/L 6-55 vbxw=074) EGFR (BEAKER) (test 81 mL/min/1.73 sq m ESTIMATED GFR IS NOT oxww=5790) ACCURATE CREATININE CLEARANCE IN PREDICTING GLOMERULAR FILTRATION RATE. ESTIMATED GFR IS NOT APPLICABLE FOR DIALYSIS PATIENTS. [id number] 04:50:00 Test Item Value Reference Range Comments MAGNESIUM (BEAKER) (test upvt=677) 1.7 mg/dL 1.6-2.6 PROTHROMBIN [id number] 04:35:00 Test Item Value Reference Range Comments PROTIME (BEAKER) (test cjnh=646) 23.7 seconds 11.7-14.7 INR (BEAKER) (test ozcb=655) 2.1 <=5.9 RECOMMENDED COUMADIN/WARFARIN INR THERAPY RANGESSTANDARD DOSE: 2.0 - 3.0 Includes: PROPHYLAXIS forvenous thrombosis, systemic embolization; TREATMENT for venous thrombosis and/or pulmonary embolus.HIGH RISK: Target INR is 2.5-3.5 for patients with mechanical heart valves.CBC W/PLT COUNT & AUTO [id number] 04:24:00 Test Item Value Reference Range Comments WHITE BLOOD CELL COUNT (BEAKER) (test jdsz=528) 4.8 K/ L 3.5-10.5 RED BLOOD CELL COUNT (BEAKER) (test yniv=598) 3.28 M/ L 3.93-5.22 HEMOGLOBIN (BEAKER) (test yvds=765) 10.4 GM/DL 11.2-15.7 HEMATOCRIT (BEAKER) (test qfcu=451) 32.7 % 34.1-44.9 MEAN CORPUSCULAR VOLUME (BEAKER) (test ybzo=714) 99.7 fL 79.4-94.8 MEAN CORPUSCULAR HEMOGLOBIN (BEAKER) (test 31.7 pg 25.6-32.2 yemn=544) MEAN CORPUSCULAR HEMOGLOBIN CONC (BEAKER) (test 31.8 GM/DL 32.2-35.5 gylj=302) RED CELL DISTRIBUTION WIDTH (BEAKER) (test 14.7 % 11.7-14.4 qpeg=938) PLATELET COUNT (BEAKER) (test tqzz=355) 141 K/CU MM 150-450 MEAN PLATELET VOLUME (BEAKER) (test meez=222) 11.2 fL 9.4-12.3 NUCLEATED RED BLOOD CELLS (BEAKER) (test 0 /100 WBC 0-0 gutt=984) NEUTROPHILS RELATIVE PERCENT (BEAKER) (test 67 % xxbf=661) LYMPHOCYTES RELATIVE PERCENT (BEAKER) (test 26 % suut=500) MONOCYTES RELATIVE PERCENT (BEAKER) (test 5 % mnue=099) EOSINOPHILS RELATIVE PERCENT (BEAKER) (test 1 % awzl=118) BASOPHILS RELATIVE PERCENT (BEAKER) (test 0 % ehbp=541) NEUTROPHILS ABSOLUTE COUNT (BEAKER) (test 3.21 K/ L 1.56-6.13 enew=845) LYMPHOCYTES ABSOLUTE COUNT (BEAKER) (test 1.24 K/ L 1.18-3.74 rdpr=285) MONOCYTES ABSOLUTE COUNT (BEAKER) (test 0.23 K/ L 0.24-0.36 dvvu=781) EOSINOPHILS ABSOLUTE COUNT (BEAKER) (test 0.06 K/ L 0.04-0.36 mkxa=097) BASOPHILS ABSOLUTE COUNT (BEAKER) (test 0.02 K/ L 0.01-0.08 xors=994) IMMATURE GRANULOCYTES-RELATIVE PERCENT (BEAKER) 1 % 0-1 (test wxyz=2874) POCT-GLUCOSE [id number] 22:13:00 Test Item Value Reference Range Comments POC-GLUCOSE METER (BEAKER) 194 mg/dL 70-110 TESTED AT [address] (test rmvf=1677) [place] [address] POCT-GLUCOSE [id number] 18:14:00 Test Item Value Reference Range Comments POC-GLUCOSE METER (BEAKER) 195 mg/dL 70-110 TESTED AT [address] (test kzuw=5161) [place] [address] POCT-GLUCOSE [id number] 12:20:00 Test Item Value Reference Range Comments POC-GLUCOSE METER (BEAKER) 224 mg/dL 70-110 TESTED AT [address] (test xxhr=4560) [place] [address] [id number] 08:55:00 Test Item Value Reference Range Comments LIPASE (BEAKER) (test wkcq=001) 471 U/L 8-78 POCT-GLUCOSE [id number] 08:12:00 Test Item Value Reference Range Comments POC-GLUCOSE METER (BEAKER) 128 mg/dL 70-110 TESTED AT [address] (test yytq=2304) [place] [address] [id number] 04:12:00 Test Item Value Reference Range Comments T3 TOTAL (BEAKER) (test teyr=577) 41 ng/dL 48-159 T3, [id number] 04:11:00 Test Item Value Reference Range Comments T3 FREE (BEAKER) (test btsq=096) 1.31 pg/mL 1.71-3.71 COMPREHENSIVE METABOLIC [id number] 04:01:00 Test Item Value Reference Range Comments TOTAL PROTEIN (BEAKER) 4.8 gm/dL 6.0-8.3 (test zfbd=108) ALBUMIN (BEAKER) (test 2.8 g/dL 3.5-5.0 bbtt=1860) ALKALINE PHOSPHATASE 33 U/L 40-150 (BEAKER) (test gigt=288) BILIRUBIN TOTAL (BEAKER) 0.4 mg/dL 0.2-1.2 (test dghk=292) SODIUM (BEAKER) (test 143 meq/L 136-145 usch=441) POTASSIUM (BEAKER) (test 4.0 meq/L 3.5-5.1 afrx=621) CHLORIDE (BEAKER) (test 110 meq/L 98-107 bktm=372) CO2 (BEAKER) (test 26 meq/L 22-29 hvvj=506) BLOOD UREA NITROGEN 9 mg/dL 7-21 (BEAKER) (test tfey=865) CREATININE (BEAKER) (test 0.73 mg/dL 0.57-1.25 ktjj=335) GLUCOSE RANDOM (BEAKER) 213 mg/dL 70-105 (test ldrd=582) CALCIUM (BEAKER) (test 8.2 mg/dL 8.4-10.2 juul=168) AST (SGOT) (BEAKER) (test 8 U/L 5-34 bcow=996) ALT (SGPT) (BEAKER) (test < U/L 6-55 mnmx=233) EGFR (BEAKER) (test 77 mL/min/1.73 sq m ESTIMATED GFR IS NOT nqty=3147) ACCURATE CREATININE CLEARANCE IN PREDICTING GLOMERULAR FILTRATION RATE. ESTIMATED GFR IS NOT APPLICABLE FOR DIALYSIS PATIENTS. [id number] 03:54:00 Test Item Value Reference Range Comments MAGNESIUM (BEAKER) (test czni=210) 1.7 mg/dL 1.6-2.6 PROTHROMBIN [id number] 03:53:00 Test Item Value Reference Range Comments PROTIME (BEAKER) (test ltor=777) 22.4 seconds 11.7-14.7 INR (BEAKER) (test jvng=539) 2.0 <=5.9 RECOMMENDED COUMADIN/WARFARIN INR THERAPY RANGESSTANDARD DOSE: 2.0 - 3.0 Includes: PROPHYLAXIS forvenous thrombosis, systemic embolization; TREATMENT for venous thrombosis and/or pulmonary embolus.HIGH RISK: Target INR is 2.5-3.5 for patients with mechanical heart valves.CBC W/PLT COUNT & AUTO [id number] 03:46:00 Test Item Value Reference Range Comments WHITE BLOOD CELL COUNT (BEAKER) (test jdkm=437) 5.3 K/ L 3.5-10.5 RED BLOOD CELL COUNT (BEAKER) (test gyyc=840) 3.04 M/ L 3.93-5.22 HEMOGLOBIN (BEAKER) (test lfjb=468) 9.7 GM/DL 11.2-15.7 HEMATOCRIT (BEAKER) (test fmti=292) 30.6 % 34.1-44.9 MEAN CORPUSCULAR VOLUME (BEAKER) (test avqj=952) 100.7 fL 79.4-94.8 MEAN CORPUSCULAR HEMOGLOBIN (BEAKER) (test 31.9 pg 25.6-32.2 qphd=384) MEAN CORPUSCULAR HEMOGLOBIN CONC (BEAKER) (test 31.7 GM/DL 32.2-35.5 zdkp=338) RED CELL DISTRIBUTION WIDTH (BEAKER) (test 14.6 % 11.7-14.4 ziyf=971) PLATELET COUNT (BEAKER) (test gxoa=478) 135 K/CU MM 150-450 MEAN PLATELET VOLUME (BEAKER) (test cvox=759) 11.4 fL 9.4-12.3 NUCLEATED RED BLOOD CELLS (BEAKER) (test 0 /100 WBC 0-0 rzal=388) NEUTROPHILS RELATIVE PERCENT (BEAKER) (test 76 % hxai=191) LYMPHOCYTES RELATIVE PERCENT (BEAKER) (test 19 % bqpf=061) MONOCYTES RELATIVE PERCENT (BEAKER) (test 3 % fpjx=099) EOSINOPHILS RELATIVE PERCENT (BEAKER) (test 0 % jcnv=362) BASOPHILS RELATIVE PERCENT (BEAKER) (test 0 % rimi=597) NEUTROPHILS ABSOLUTE COUNT (BEAKER) (test 4.02 K/ L 1.56-6.13 ktcb=336) LYMPHOCYTES ABSOLUTE COUNT (BEAKER) (test 1.01 K/ L 1.18-3.74 kbyk=802) MONOCYTES ABSOLUTE COUNT (BEAKER) (test 0.15 K/ L 0.24-0.36 wizx=493) EOSINOPHILS ABSOLUTE COUNT (BEAKER) (test 0.01 K/ L 0.04-0.36 kjmr=609) BASOPHILS ABSOLUTE COUNT (BEAKER) (test 0.01 K/ L 0.01-0.08 tkhw=980) IMMATURE GRANULOCYTES-RELATIVE PERCENT (BEAKER) 1 % 0-1 (test sxnn=4462) POCT-GLUCOSE [id number] 22:34:00 Test Item Value Reference Range Comments POC-GLUCOSE METER (BEAKER) 252 mg/dL 70-110 TESTED AT [facility] [address] (test reyb=8249) [facility] [address] [id number] 19:36:00 Test Item Value Reference Range Comments MAGNESIUM (BEAKER) (test rxqd=123) 1.6 mg/dL 1.6-2.6 BASIC METABOLIC [id number] 19:36:00 Test Item Value Reference Range Comments SODIUM (BEAKER) (test 143 meq/L 136-145 ldwe=636) POTASSIUM (BEAKER) (test 4.1 meq/L 3.5-5.1 blby=338) CHLORIDE (BEAKER) (test 109 meq/L 98-107 soym=743) CO2 (BEAKER) (test 24 meq/L 22-29 qlju=047) BLOOD UREA NITROGEN 9 mg/dL 7-21 (BEAKER) (test hhii=111) CREATININE (BEAKER) (test 0.74 mg/dL 0.57-1.25 bugk=910) GLUCOSE RANDOM (BEAKER) 249 mg/dL 70-105 (test ikeb=384) CALCIUM (BEAKER) (test 8.1 mg/dL 8.4-10.2 gbns=610) EGFR (BEAKER) (test 76 mL/min/1.73 sq m ESTIMATED GFR IS NOT muqx=3039) ACCURATE CREATININE CLEARANCE IN PREDICTING GLOMERULAR FILTRATION RATE. ESTIMATED GFR IS NOT APPLICABLE FOR DIALYSIS PATIENTS. URINE [id number] 11:51:00 Test Item Value Reference Range Comments CULTURE (BEAKER) (test hcqw=2506) No growth POCT-GLUCOSE [id number] 11:42:00 Test Item Value Reference Range Comments POC-GLUCOSE METER (BEAKER) 205 mg/dL 70-110 TESTED AT [address] (test xiao=0522) [facility] [address] POCT-GLUCOSE [id number] 08:08:00 Test Item Value Reference Range Comments POC-GLUCOSE METER (BEAKER) 119 mg/dL 70-110 TESTED AT [address] (test achm=0501) [facility] [address] C. DIFFICILE GDH [id number] 07:40:00 Test Item Value Reference Range Comments CDT TOXIN (test Negative Negative zxrn=[id number]) CDT GDH ANTIGEN (test Positive Negative C. difficile present but toxin ijym=[id number]) not detected. Indicates colonization with non-toxigenic strain or level of toxin below detectable levels. No need for enteric isolation. Treatment is rarely needed (only when strong clinical suspicion for Clostridium difficile infection) Testing performed by [employer] Rapid [employer]ette Assay. For GDH, published sensitivity of the assay is 98.7% compared to cytotoxicity testing. For Toxin AB, published sensitivity is 87.8% and specificity 99.4% compared to cytotoxicity testing.Verification of kit performance was done by the [facility] Microbiology Lab prior to clinical use.POCT-GLUCOSE [id number] 06:37:00 Test Item Value Reference Range Comments POC-GLUCOSE METER (BEAKER) 141 mg/dL 70-110 TESTED AT [address] (test aivh=4052) [facility] [address] COMPREHENSIVE METABOLIC [id number] 04:48:00 Test Item Value Reference Range Comments TOTAL PROTEIN (BEAKER) 4.7 gm/dL 6.0-8.3 (test lmit=498) ALBUMIN (BEAKER) (test 2.7 g/dL 3.5-5.0 pjxc=4535) ALKALINE PHOSPHATASE 33 U/L 40-150 (BEAKER) (test cwjv=365) BILIRUBIN TOTAL (BEAKER) 0.4 mg/dL 0.2-1.2 (test uvrw=265) SODIUM (BEAKER) (test 145 meq/L 136-145 wyvq=192) POTASSIUM (BEAKER) (test 3.7 meq/L 3.5-5.1 xmyp=097) CHLORIDE (BEAKER) (test 110 meq/L 98-107 avyj=117) CO2 (BEAKER) (test 28 meq/L 22-29 bzef=411) BLOOD UREA NITROGEN 11 mg/dL 7-21 (BEAKER) (test txdh=712) CREATININE (BEAKER) (test 0.74 mg/dL 0.57-1.25 amtj=065) GLUCOSE RANDOM (BEAKER) 137 mg/dL 70-105 (test olst=453) CALCIUM (BEAKER) (test 8.2 mg/dL 8.4-10.2 npza=853) AST (SGOT) (BEAKER) (test 8 U/L 5-34 wqzw=293) ALT (SGPT) (BEAKER) (test < U/L 6-55 qwdd=229) EGFR (BEAKER) (test 76 mL/min/1.73 sq m ESTIMATED GFR IS NOT asbf=7148) ACCURATE CREATININE CLEARANCE IN PREDICTING GLOMERULAR FILTRATION RATE. ESTIMATED GFR IS NOT APPLICABLE FOR DIALYSIS PATIENTS. PROTHROMBIN [id number] 04:40:00 Test Item Value Reference Range Comments PROTIME (BEAKER) (test qbkn=224) 23.8 seconds 11.7-14.7 INR (BEAKER) (test riul=855) 2.1 <=5.9 RECOMMENDED COUMADIN/WARFARIN INR THERAPY RANGESSTANDARD DOSE: 2.0 - 3.0 Includes: PROPHYLAXIS forvenous thrombosis, systemic embolization; TREATMENT for venous thrombosis and/or pulmonary embolus.HIGH RISK: Target INR is 2.5-3.5 for patients with mechanical heart valves.While on warfarin.[id number] 04:29:00 Test Item Value Reference Range Comments MAGNESIUM (BEAKER) (test ieco=672) 2.0 mg/dL 1.6-2.6 CBC W/PLT COUNT & AUTO [id number] 04:11:00 Test Item Value Reference Range Comments WHITE BLOOD CELL COUNT (BEAKER) (test oonr=669) 5.8 K/ L 3.5-10.5 RED BLOOD CELL COUNT (BEAKER) (test bsyf=848) 3.18 M/ L 3.93-5.22 HEMOGLOBIN (BEAKER) (test vpkp=042) 10.0 GM/DL 11.2-15.7 HEMATOCRIT (BEAKER) (test zonx=352) 31.8 % 34.1-44.9 MEAN CORPUSCULAR VOLUME (BEAKER) (test nwtg=271) 100.0 fL 79.4-94.8 MEAN CORPUSCULAR HEMOGLOBIN (BEAKER) (test 31.4 pg 25.6-32.2 iqtc=534) MEAN CORPUSCULAR HEMOGLOBIN CONC (BEAKER) (test 31.4 GM/DL 32.2-35.5 pzkm=808) RED CELL DISTRIBUTION WIDTH (BEAKER) (test 14.9 % 11.7-14.4 cnbh=603) PLATELET COUNT (BEAKER) (test cxvs=102) 141 K/CU MM 150-450 MEAN PLATELET VOLUME (BEAKER) (test mivn=857) 11.3 fL 9.4-12.3 NUCLEATED RED BLOOD CELLS (BEAKER) (test 0 /100 WBC 0-0 pepf=250) NEUTROPHILS RELATIVE PERCENT (BEAKER) (test 71 % csky=083) LYMPHOCYTES RELATIVE PERCENT (BEAKER) (test 23 % betj=225) MONOCYTES RELATIVE PERCENT (BEAKER) (test 4 % clal=272) EOSINOPHILS RELATIVE PERCENT (BEAKER) (test 0 % khxt=675) BASOPHILS RELATIVE PERCENT (BEAKER) (test 0 % ivby=081) NEUTROPHILS ABSOLUTE COUNT (BEAKER) (test 4.14 K/ L 1.56-6.13 gwbx=025) LYMPHOCYTES ABSOLUTE COUNT (BEAKER) (test 1.34 K/ L 1.18-3.74 xivv=023) MONOCYTES ABSOLUTE COUNT (BEAKER) (test 0.23 K/ L 0.24-0.36 rbbs=364) EOSINOPHILS ABSOLUTE COUNT (BEAKER) (test 0.02 K/ L 0.04-0.36 omcf=625) BASOPHILS ABSOLUTE COUNT (BEAKER) (test 0.02 K/ L 0.01-0.08 hpye=739) IMMATURE GRANULOCYTES-RELATIVE PERCENT (BEAKER) 1 % 0-1 (test wbhs=4099) POCT-GLUCOSE [id number] 22:19:00 Test Item Value Reference Range Comments POC-GLUCOSE METER (BEAKER) 266 mg/dL 70-110 TESTED AT [facility] [address] (test hwfy=4777) [facility] [address] [id number] 17:54:00 Test Item Value Reference Range Comments POTASSIUM (BEAKER) (test wmby=969) 4.2 meq/L 3.5-5.1 [id number] 17:23:00 Test Item Value Reference Range Comments MAGNESIUM (BEAKER) (test fmcv=594) 1.7 mg/dL 1.6-2.6 POCT-GLUCOSE [id number] 12:41:00 Test Item Value Reference Range Comments POC-GLUCOSE METER (BEAKER) 111 mg/dL 70-110 TESTED AT [address] (test dfij=2942) [facility] [address] [id number] 12:40:00 Test Item Value Reference Range Comments POTASSIUM (BEAKER) (test abvr=115) 3.5 meq/L 3.5-5.1 POCT-GLUCOSE [id number] 10:05:00 Test Item Value Reference Range Comments POC-GLUCOSE METER (BEAKER) 94 mg/dL 70-110 TESTED AT [address] (test cmud=9415) [place] [id number] COMPREHENSIVE METABOLIC [id number] 05:47:00 Test Item Value Reference Range Comments TOTAL PROTEIN (BEAKER) 4.7 gm/dL 6.0-8.3 (test qrek=946) ALBUMIN (BEAKER) (test 2.7 g/dL 3.5-5.0 dbrk=5059) ALKALINE PHOSPHATASE 31 U/L 40-150 (BEAKER) (test otip=687) BILIRUBIN TOTAL (BEAKER) 0.5 mg/dL 0.2-1.2 (test oxgn=589) SODIUM (BEAKER) (test 147 meq/L 136-145 atjp=568) POTASSIUM (BEAKER) (test 2.9 meq/L 3.5-5.1 jxns=438) CHLORIDE (BEAKER) (test 110 meq/L 98-107 fbwr=887) CO2 (BEAKER) (test 27 meq/L 22-29 tqug=947) BLOOD UREA NITROGEN 10 mg/dL 7-21 (BEAKER) (test pgeb=459) CREATININE (BEAKER) (test 0.70 mg/dL 0.57-1.25 vytn=578) GLUCOSE RANDOM (BEAKER) 86 mg/dL 70-105 (test ywra=318) CALCIUM (BEAKER) (test 7.9 mg/dL 8.4-10.2 poiw=704) AST (SGOT) (BEAKER) (test 9 U/L 5-34 hsvq=452) ALT (SGPT) (BEAKER) (test < U/L 6-55 qnub=577) EGFR (BEAKER) (test 81 mL/min/1.73 sq m ESTIMATED GFR IS NOT txeh=9987) ACCURATE CREATININE CLEARANCE IN PREDICTING GLOMERULAR FILTRATION RATE. ESTIMATED GFR IS NOT APPLICABLE FOR DIALYSIS PATIENTS. [id number] 05:44:00 Test Item Value Reference Range Comments MAGNESIUM (BEAKER) (test fmiz=605) 2.0 mg/dL 1.6-2.6 PROTHROMBIN [id number] 05:37:00 Test Item Value Reference Range Comments PROTIME (BEAKER) (test jgoq=311) 24.0 seconds 11.7-14.7 INR (BEAKER) (test ffcm=178) 2.2 <=5.9 RECOMMENDED COUMADIN/WARFARIN INR THERAPY RANGESSTANDARD DOSE: 2.0 - 3.0 Includes: PROPHYLAXIS forvenous thrombosis, systemic embolization; TREATMENT for venous thrombosis and/or pulmonary embolus.HIGH RISK: Target INR is 2.5-3.5 for patients with mechanical heart valves.PROTHROMBIN [id number] 05:36: 00 Test Item Value Reference Range Comments PROTIME (BEAKER) (test czqj=400) 24.2 seconds 11.7-14.7 INR (BEAKER) (test prlb=884) 2.2 <=5.9 RECOMMENDED COUMADIN/WARFARIN INR THERAPY RANGESSTANDARD DOSE: 2.0 - 3.0 Includes: PROPHYLAXIS forvenous thrombosis, systemic embolization; TREATMENT for venous thrombosis and/or pulmonary embolus.HIGH RISK: Target INR is 2.5-3.5 for patients with mechanical heart valves.While on warfarin.CBC W/PLT COUNT &amp ; AUTO [id number] 05:35:00 Test Item Value Reference Range Comments WHITE BLOOD CELL COUNT (BEAKER) (test kkmo=614) 4.3 K/ L 3.5-10.5 RED BLOOD CELL COUNT (BEAKER) (test ieuq=699) 3.29 M/ L 3.93-5.22 HEMOGLOBIN (BEAKER) (test cafb=966) 10.3 GM/DL 11.2-15.7 HEMATOCRIT (BEAKER) (test ljph=079) 33.2 % 34.1-44.9 MEAN CORPUSCULAR VOLUME (BEAKER) (test hqxu=038) 100.9 fL 79.4-94.8 MEAN CORPUSCULAR HEMOGLOBIN (BEAKER) (test 31.3 pg 25.6-32.2 utks=635) MEAN CORPUSCULAR HEMOGLOBIN CONC (BEAKER) (test 31.0 GM/DL 32.2-35.5 uzat=994) RED CELL DISTRIBUTION WIDTH (BEAKER) (test 14.9 % 11.7-14.4 fkmr=819) PLATELET COUNT (BEAKER) (test qxdz=668) 138 K/CU MM 150-450 MEAN PLATELET VOLUME (BEAKER) (test xmck=761) 11.5 fL 9.4-12.3 NUCLEATED RED BLOOD CELLS (BEAKER) (test 0 /100 WBC 0-0 oqvi=104) NEUTROPHILS RELATIVE PERCENT (BEAKER) (test 66 % khgn=827) LYMPHOCYTES RELATIVE PERCENT (BEAKER) (test 27 % lapc=694) MONOCYTES RELATIVE PERCENT (BEAKER) (test 4 % ldvr=430) EOSINOPHILS RELATIVE PERCENT (BEAKER) (test 1 % skov=358) BASOPHILS RELATIVE PERCENT (BEAKER) (test 0 % rovj=118) NEUTROPHILS ABSOLUTE COUNT (BEAKER) (test 2.82 K/ L 1.56-6.13 rjlz=187) LYMPHOCYTES ABSOLUTE COUNT (BEAKER) (test 1.16 K/ L 1.18-3.74 onra=376) MONOCYTES ABSOLUTE COUNT (BEAKER) (test 0.18 K/ L 0.24-0.36 zaii=563) EOSINOPHILS ABSOLUTE COUNT (BEAKER) (test 0.06 K/ L 0.04-0.36 fqjo=926) BASOPHILS ABSOLUTE COUNT (BEAKER) (test 0.01 K/ L 0.01-0.08 fnbv=904) IMMATURE GRANULOCYTES-RELATIVE PERCENT (BEAKER) 1 % 0-1 (test iayt=3057) POCT-GLUCOSE [id number] 23:56:00 Test Item Value Reference Range Comments POC-GLUCOSE METER (BEAKER) 105 mg/dL 70-110 TESTED AT [facility] [address] (test lsax=9396) [facility] [address] TROPONIN [id number] 13:02:00 Test Item Value Reference Range Comments TROPONIN I (BEAKER) (test osqw=880) 0.02 ng/mL 0.00-0.03 Troponin I (TnI) levels [...] NATRIURETIC PEPTIDE (BEAKER) (test 975 pg/mL 0-100 bjii=268) POCT-GLUCOSE [id number] 12:18:00 Test Item Value Reference Range Comments POC-GLUCOSE METER (BEAKER) 175 mg/dL 70-110 TESTED AT [facility] [address] [place] [address] (test autl=7558) [facility] [address] U/S, ABDOMINAL, [id number] 10:23:00Abdomen limited area? Add comment if clarification [...] MDReport Verified Date/Time: 01/14/2018 10:23:02 Reading Location: [facility] [id number] Ortho Consult Reading Room T4, [id number] 08:42 :00 Test Item Value Reference Range Comments FREE T4 (BEAKER) (test endu=669) 0.83 ng/dL 0.70-1.48 POCT-GLUCOSE [id number] 08:37:00 Test Item Value Reference Range Comments POC-GLUCOSE METER (BEAKER) 161 mg/dL 70-110 TESTED AT [facility] [address] (test movr=7422) [facility] [address] TSH/FREE T4 IF [id number] 08:05:00 Test Item Value Reference Range Comments THYROID STIMULATING HORMONE (BEAKER) (test 0.02 uIU/mL 0.35-4.94 ovxj=849) VITAMIN B12 AND [id number] 07:42:00 Test Item Value Reference Range Comments VITAMIN B12 (BEAKER) (test novf=644) 1276 pg/mL 213-816 FOLATE (BEAKER) (test remj=760) 8.8 ng/mL >=7.0 LIPID [id number] 07:14:00 Test Item Value Reference Range Comments TRIGLYCERIDES (BEAKER) (test xflf=783) 171 mg/dL CHOLESTEROL (BEAKER) (test wgpl=258) 123 mg/dL HDL CHOLESTEROL (BEAKER) (test stjh=405) 25 mg/dL LDL CHOLESTEROL CALCULATED (BEAKER) (test 64 mg/dL xlfx=760) Triglyceride Reference Range: Low Risk <150 Borderline 150- 199 High Risk 200-499 Very High Risk >=500Cholesterol Reference Range: Low Risk <200 Borderline 200-239 High Risk > 240HDL Cholesterol Reference Range: Low Risk >=60 High Risk <40LDL Cholesterol Reference Range: Optimal <100 Near Optimal 100-129 Borderline 130-159 High 160-189 Very High >=190TROPONIN [id number] 07:12:00 Test Item Value Reference Range Comments TROPONIN I (BEAKER) (test spho=556) 0.03 ng/mL 0.00-0.03 Troponin I (TnI) levels [...] acute neurological disease, and persistent tachyarrhythmia.URINALYSIS W/ [id number] 06: 35:00 Test Item Value Reference Range Comments COLOR (BEAKER) (test pxba=385) Yellow CLARITY (BEAKER) (test qboe=339) Clear SPECIFIC GRAVITY UA (BEAKER) (test typo=350) 1.043 1.001-1.035 PH UA (BEAKER) (test iepy=017) 6.5 5.0-8.0 PROTEIN UA (BEAKER) (test hrjo=467) 20 mg/dL Negative GLUCOSE UA (BEAKER) (test wzen=934) 1000 mg/dL Negative KETONES UA (BEAKER) (test fzle=232) Negative Negative BILIRUBIN UA (BEAKER) (test iwij=991) Negative Negative BLOOD UA (BEAKER) (test uirs=495) Trace Negative NITRITE UA (BEAKER) (test kuov=774) Negative Negative LEUKOCYTE ESTERASE UA (BEAKER) (test mcpb=300) Negative Negative UROBILINOGEN UA (BEAKER) (test vfbm=471) 0.2 mg/dL 0.2-1.0 RBC UA (BEAKER) (test mifb=098) 1 /HPF WBC UA (BEAKER) (test jrqu=878) 3 /HPF BACTERIA (BEAKER) (test yvje=755) Rare SOURCE(BEAKER) (test hymd=0000) Urine, Taylor [id number] 06:07:00 Test Item Value Reference Range Comments MAGNESIUM (BEAKER) (test xxwc=492) 1.8 mg/dL 1.6-2.6 [id number] 05:32:00 Test Item Value Reference Range Comments MAGNESIUM (BEAKER) (test hjcq=906) 2.5 mg/dL 1.6-2.6 COMPREHENSIVE METABOLIC [id number] 05:32:00 Test Item Value Reference Range Comments TOTAL PROTEIN (BEAKER) 5.1 gm/dL 6.0-8.3 (test lpzt=975) ALBUMIN (BEAKER) (test 2.9 g/dL 3.5-5.0 vobx=3897) ALKALINE PHOSPHATASE 31 U/L 40-150 (BEAKER) (test iwhp=333) BILIRUBIN TOTAL (BEAKER) 0.4 mg/dL 0.2-1.2 (test zbaf=322) SODIUM (BEAKER) (test 145 meq/L 136-145 nuwv=010) POTASSIUM (BEAKER) (test 4.0 meq/L 3.5-5.1 fplg=239) CHLORIDE (BEAKER) (test 110 meq/L 98-107 kdaj=848) CO2 (BEAKER) (test 28 meq/L 22-29 mfgy=006) BLOOD UREA NITROGEN 14 mg/dL 7-21 (BEAKER) (test ucua=645) CREATININE (BEAKER) (test 0.71 mg/dL 0.57-1.25 iirh=162) GLUCOSE RANDOM (BEAKER) 187 mg/dL 70-105 (test pgbf=750) CALCIUM (BEAKER) (test 8.1 mg/dL 8.4-10.2 tchy=859) AST (SGOT) (BEAKER) (test 9 U/L 5-34 hsjh=561) ALT (SGPT) (BEAKER) (test 6 U/L 6-55 myue=361) EGFR (BEAKER) (test 79 mL/min/1.73 sq m ESTIMATED GFR IS NOT meno=7001) ACCURATE CREATININE CLEARANCE IN PREDICTING GLOMERULAR FILTRATION RATE. ESTIMATED GFR IS NOT APPLICABLE FOR DIALYSIS PATIENTS. PROTHROMBIN [id number] 05:10:00 Test Item Value Reference Range Comments PROTIME (BEAKER) (test jmpy=251) 25.1 seconds 11.7-14.7 INR (BEAKER) (test czbb=142) 2.3 <=5.9 RECOMMENDED COUMADIN/WARFARIN INR THERAPY RANGESSTANDARD DOSE: 2.0 - 3.0 Includes: PROPHYLAXIS forvenous thrombosis, systemic embolization; TREATMENT for venous thrombosis and/or pulmonary embolus.HIGH RISK: Target INR is 2.5-3.5 for patients with mechanical heart valves.CBC W/PLT COUNT & AUTO [id number] 05:03:00 Test Item Value Reference Range Comments WHITE BLOOD CELL COUNT (BEAKER) (test qpun=382) 5.6 K/ L 3.5-10.5 RED BLOOD CELL COUNT (BEAKER) (test jqqy=595) 3.19 M/ L 3.93-5.22 HEMOGLOBIN (BEAKER) (test tfcf=373) 10.1 GM/DL 11.2-15.7 HEMATOCRIT (BEAKER) (test xyyx=600) 31.5 % 34.1-44.9 MEAN CORPUSCULAR VOLUME (BEAKER) (test blvi=156) 98.7 fL 79.4-94.8 MEAN CORPUSCULAR HEMOGLOBIN (BEAKER) (test 31.7 pg 25.6-32.2 phfp=399) MEAN CORPUSCULAR HEMOGLOBIN CONC (BEAKER) (test 32.1 GM/DL 32.2-35.5 gaip=058) RED CELL DISTRIBUTION WIDTH (BEAKER) (test 14.6 % 11.7-14.4 jsam=791) PLATELET COUNT (BEAKER) (test smbl=905) 141 K/CU MM 150-450 MEAN PLATELET VOLUME (BEAKER) (test yjgv=958) 11.6 fL 9.4-12.3 NUCLEATED RED BLOOD CELLS (BEAKER) (test 0 /100 WBC 0-0 erka=886) NEUTROPHILS RELATIVE PERCENT (BEAKER) (test 71 % mpvr=014) LYMPHOCYTES RELATIVE PERCENT (BEAKER) (test 22 % vzqc=016) MONOCYTES RELATIVE PERCENT (BEAKER) (test 5 % srwd=729) EOSINOPHILS RELATIVE PERCENT (BEAKER) (test 0 % ztix=331) BASOPHILS RELATIVE PERCENT (BEAKER) (test 0 % xzpl=204) NEUTROPHILS ABSOLUTE COUNT (BEAKER) (test 4.00 K/ L 1.56-6.13 tvbz=782) LYMPHOCYTES ABSOLUTE COUNT (BEAKER) (test 1.25 K/ L 1.18-3.74 erdn=162) MONOCYTES ABSOLUTE COUNT (BEAKER) (test 0.26 K/ L 0.24-0.36 gskq=337) EOSINOPHILS ABSOLUTE COUNT (BEAKER) (test 0.02 K/ L 0.04-0.36 wxdk=439) BASOPHILS ABSOLUTE COUNT (BEAKER) (test 0.01 K/ L 0.01-0.08 cpdt=479) IMMATURE GRANULOCYTES-RELATIVE PERCENT (BEAKER) 1 % 0-1 (test ecis=0412) [id number] 02:52:00 Test Item Value Reference Range Comments PROCALCITONIN (BEAKER) (test dlkt=9275) 0.41 ng/mL <0.05 SEPSIS RISK (ng/mL)Low: 0.05-0.50Intermediate: 0.51-2.00High: & gt;=2.01LACTIC ACID, VENOUS, WHOLE [id number] 02:06:00 Test Item Value Reference Range Comments LACTATE BLOOD VENOUS (2) 1.3 mmol/L 0.5-2.2 Specimen slightly hemolyzed (BEAKER) (test ikdy=1134) Effective 01/07/2016: Units/Reference Range ChangeNew: 0.5-2.2 mmol/L Previous: 5 -20 mg/dLCOMPREHENSIVE METABOLIC [id number] 02:06:00 Test Item Value Reference Range Comments TOTAL PROTEIN (BEAKER) 5.2 gm/dL 6.0-8.3 (test fnav=784) ALBUMIN (BEAKER) (test 3.0 g/dL 3.5-5.0 owyj=8903) ALKALINE PHOSPHATASE 31 U/L 40-150 (BEAKER) (test rftk=802) BILIRUBIN TOTAL (BEAKER) 0.4 mg/dL 0.2-1.2 (test xatd=950) SODIUM (BEAKER) (test 143 meq/L 136-145 wvbz=348) POTASSIUM (BEAKER) (test 2.9 meq/L 3.5-5.1 ssjj=990) CHLORIDE (BEAKER) (test 109 meq/L 98-107 dwin=503) CO2 (BEAKER) (test 27 meq/L 22-29 nbib=456) BLOOD UREA NITROGEN 15 mg/dL 7-21 (BEAKER) (test mzoi=461) CREATININE (BEAKER) (test 0.70 mg/dL 0.57-1.25 hxlx=411) GLUCOSE RANDOM (BEAKER) 215 mg/dL 70-105 (test hcpm=741) CALCIUM (BEAKER) (test 7.9 mg/dL 8.4-10.2 unrm=731) AST (SGOT) (BEAKER) (test 10 U/L 5-34 gojp=046) ALT (SGPT) (BEAKER) (test 7 U/L 6-55 shxb=464) EGFR (BEAKER) (test 81 mL/min/1.73 sq m ESTIMATED GFR IS NOT vejr=3006) ACCURATE CREATININE CLEARANCE IN PREDICTING GLOMERULAR FILTRATION RATE. ESTIMATED GFR IS NOT APPLICABLE FOR DIALYSIS PATIENTS. [id number] 02:04:00 Test Item Value Reference Range Comments LIPASE (BEAKER) (test sscd=291) 730 U/L 8-78 [id number] 02:04:00 Test Item Value Reference Range Comments AMYLASE (BEAKER) (test aelx=642) 226 U/L 25-125 PROTHROMBIN TIME/[id number] 01:45:00 Test Item Value Reference Range Comments PROTIME (BEAKER) (test kemn=308) 23.9 seconds 11.7-14.7 INR (BEAKER) (test usqe=568) 2.1 <=5.9 RECOMMENDED COUMADIN/WARFARIN INR THERAPY RANGESSTANDARD DOSE: 2.0 - 3.0 Includes: PROPHYLAXIS forvenous thrombosis, systemic embolization; TREATMENT for venous thrombosis and/or pulmonary embolus.HIGH RISK: Target INR is 2.5-3.5 for patients with mechanical heart valves.[id number] 01:45:00 Test Item Value Reference Range Comments PARTIAL THROMBOPLASTIN TIME (BEAKER) (test 32.4 seconds 22.5-36.0 tcet=011) CBC W/PLT COUNT & AUTO [id number] 01:38:00 Test Item Value Reference Range Comments WHITE BLOOD CELL COUNT (BEAKER) (test anxb=926) 4.9 K/ L 3.5-10.5 RED BLOOD CELL COUNT (BEAKER) (test fgmq=950) 3.21 M/ L 3.93-5.22 HEMOGLOBIN (BEAKER) (test srdz=857) 10.2 GM/DL 11.2-15.7 HEMATOCRIT (BEAKER) (test volm=618) 31.6 % 34.1-44.9 MEAN CORPUSCULAR VOLUME (BEAKER) (test kede=086) 98.4 fL 79.4-94.8 MEAN CORPUSCULAR HEMOGLOBIN (BEAKER) (test 31.8 pg 25.6-32.2 fnjo=231) MEAN CORPUSCULAR HEMOGLOBIN CONC (BEAKER) (test 32.3 GM/DL 32.2-35.5 ggbb=014) RED CELL DISTRIBUTION WIDTH (BEAKER) (test 14.4 % 11.7-14.4 muxf=655) PLATELET COUNT (BEAKER) (test izuz=648) 137 K/CU MM 150-450 MEAN PLATELET VOLUME (BEAKER) (test fvrx=135) 11.9 fL 9.4-12.3 NUCLEATED RED BLOOD CELLS (BEAKER) (test 0 /100 WBC 0-0 ebzg=776) NEUTROPHILS RELATIVE PERCENT (BEAKER) (test 76 % ygov=926) LYMPHOCYTES RELATIVE PERCENT (BEAKER) (test 19 % qlbd=905) MONOCYTES RELATIVE PERCENT (BEAKER) (test 4 % ttms=826) EOSINOPHILS RELATIVE PERCENT (BEAKER) (test 0 % klxj=651) BASOPHILS RELATIVE PERCENT (BEAKER) (test 0 % shwg=340) NEUTROPHILS ABSOLUTE COUNT (BEAKER) (test 3.73 K/ L 1.56-6.13 kugp=899) LYMPHOCYTES ABSOLUTE COUNT (BEAKER) (test 0.92 K/ L 1.18-3.74 fwgh=333) MONOCYTES ABSOLUTE COUNT (BEAKER) (test 0.21 K/ L 0.24-0.36 bvdo=295) EOSINOPHILS ABSOLUTE COUNT (BEAKER) (test 0.00 K/ L 0.04-0.36 jaqn=657) BASOPHILS ABSOLUTE COUNT (BEAKER) (test 0.01 K/ L 0.01-0.08 jmkw=204) IMMATURE GRANULOCYTES-RELATIVE PERCENT (BEAKER) 1 % 0-1 (test wqls=1585)
[2018-09-27 10:11] LABS: Absolute Lymphocytes (CBC) 1.9 K/uL (0.7-4.9); Absolute Monocytes 0.4 K/uL (0.1-1.3); Absolute Neutrophil 2.3 K/uL (1.8-8.0); Basophils % 0.7 % (0-1.3); Eosinophils % 1.3 % (0-4.4); Hematocrit 40.9 % (36.0-45.0); Lymphocytes % 40.2 % (15.3-44.8); MPV 9.5 fL (7.6-11.3); Monocytes % 8.2 % (3.3-12.3); RBC Red Blood Cell Count 4.45 M/uL (3.86-4.86)
[2018-09-27 10:34] LABS: BUN Blood Urea Nitrogen 15 mg/dL (7-18); Bicarbonate 25 mmol/L (21-32); Glucose Level 89 mg/dL (74-106); NT PRO-BNP 472 pg/mL (<450); Sodium Level 146 mmol/L (136-145); Troponin (Emerg Dept Use Only) < 0.02 ng/mL (0.0-0.045)
--- NOTE | 2018-09-27 10:55 | RAD REPORT ---
EXAM DESCRIPTION: Brandon Single View09/27/2018 10:10 am CLINICAL HISTORY: Palpitations COMPARISON: September 10, 2018 FINDINGS: The lungs appear clear of acute infiltrate. Calcified granulomas is present within the ri ght lung. The heart is normal size IMPRESSION: No acute abnormalities displayed
--- NOTE | 2018-09-27 11:35 | ER ---
Nurse's Notes [facility] Name: Emelia Payan Age: 78 yrs Sex: Female : 1940 Arrival Date: 09/27/2018 Time: 09:37 Bed 7 Private MD: Dany Iraheta Diagnosis: Acute stress reaction Presentation: 09/27 09:42 Presenting complaint: Patient states: I dont know if im having a reaction to the tw2 medicine or what but i feel like my nerves are on fire, i just paced the floors at home since this morning and i feel flush and SOB. Transition of care: patient was not received from another setting of care. Onset of symptoms was September 27, 2018. Risk Assessment: Do you want to hurt yourself or someone else? Patient reports no desire to harm self or others. Initial Sepsis Screen: Does the patient meet any 2 criteria? No. Patient's initial sepsis screen is negative. Does the patient have a suspected source of infection? No. Patient's initial sepsis screen is negative. Care prior to arrival: None. 09:42 Method Of Arrival: Wheelchair tw 09:42 Acuity: EDIS 3 tw Historical: - Allergies: 09:53 Cipro; tw2 09:53 Xarelto; tw2 - Home Meds: 09:53 amlodipine 5 mg tab 1 tab once daily [Active]; aspirin 81 mg Oral TbEC 1 tab once daily tw2 [Active]; Ativan 0.5 mg Oral tab [Active]; atorvastatin 10 mg Oral tab 1 tab once daily [Active]; cholecalciferol (vitamin D3) 5,000 unit Oral cap daily [Active]; Creon Oral 1 cap [Active]; Dexilant 60 mg Oral CpDB 1 cap once daily [Active]; fenofibrate 48 mg Oral once daily [Active]; gabapentin 600 mg Oral tab 1 tab 3 times per day [Active]; glipizide 2.5 mg Oral tr24 one tab M, W, F [Active]; hydrocortisone 40 mg Oral tab 4 tabs 2 times per day [Active]; hydrocortisone 0.5 % Topical crea 3 times per day [Active]; hydrocortisone 10 mg Oral tab 2 tabs twice a day [Active]; levothyroxine 112 mcg tab once daily [Active]; lorazepam 0.5 mg Oral tab 1 tab BID PRN for Anxiety [Active]; liothyronine 5 mcg Oral tab 1 tab once daily [Active]; losartan 100 mg Oral tab 1 tab once daily [Active]; omeprazole 20 mg Oral cpDR 1 cap once daily [Active]; omeprazole 40 mg Oral cpDR 1 cap once daily [Active]; Omnitrope subcutaneous once daily [Active]; sotalol 120 mg Oral tab 1 tab 2 times per day [Active]; sotalol 160 mg Oral tab 1 tab 2 times per day [Active]; sucralfate 1 gram Oral tab 1 tab 4 times per day [Active]; warfarin 3 mg Oral tab once daily [Active]; warfarin 3 mg Oral tab 1 tab once daily [Active]; - PMHx: 09:53 DVT; Hypertension; CHF; adrenal insuficiency; Diabetes - IDDM; Anxiety; Hyperlipidemia; tw2 Pancreatitis; Hypothyroidism; - PSHx: 09:53 pituitary gland removal; Hysterectomy; Carpal Tunnel Repair; DVT repair; Lumpectomy; tw2 - Immunization history:: Adult Immunizations. - Social history:: Smoking status: . - Ebola Screening: : Patient denies travel to an Ebola-affected area in the 21 days before illness onset. - Family history:: not pertinent. - Hospitalizations: : No recent hospitalization is reported. Screenin:45 Abuse screen: Denies threats or abuse. Nutritional screening: No deficits noted. tw2 Tuberculosis screening: No symptoms or risk factors identified. Fall Risk None identified. Assessment: 09:54 General: Appears in no apparent distress. Behavior is anxious. Pain: Denies pain. tw2 Neuro: Level of Consciousness is awake, alert, obeys commands, Oriented to person, place, time, situation. Cardiovascular: Heart tones S1 S2 Patient's skin is warm and dry. Respiratory: Reports shortness of breath Airway is patent Respiratory effort is even, unlabored, Respiratory pattern is regular, symmetrical, Breath sounds are clear bilaterally. GI: No signs and/or symptoms were reported involving the gastrointestinal system. Abdomen is flat, non-distended, Bowel sounds present X 4 quads. : No signs and/or symptoms were reported regarding the genitourinary system. EENT: No signs and/or symptoms were reported regarding the EENT system. Derm: No signs and/or symptoms reported regarding the dermatologic system. Musculoskeletal: Circulation, motion, and sensation intact. Range of motion: intact in all extremities. 11:00 Reassessment: Patient appears in no apparent distress at this time. Patient and/or tw2 family updated on plan of care and expected duration. Pain level reassessed. Patient is alert, oriented x 3, equal unlabored respirations, skin warm/dry/pink. Patient states feeling better. Patient states symptoms have improved. 11:47 Reassessment: Patient appears in no apparent distress at this time. No changes from tw2 previously documented assessment. Patient and/or family updated on plan of care and expected duration. Pain level reassessed. Patient is alert, oriented x 3, equal unlabored respirations, skin warm/dry/pink. Patient states feeling better. Patient states symptoms have improved. Vital Signs: 09:43 BP 158 / 83; Pulse 77; Resp 16; Pulse Ox 99% ; Pain 0/10; tw2 09:46 Temp 97.6(TE); tw2 10:04 BP 126 / 68; Pulse 62; Resp 17; Pulse Ox 99% on R/A; tw2 11:00 BP 116 / 59; Pulse 65; Resp 17; Pulse Ox 97% on R/A; tw2 11:42 BP 139 / 75; Pulse 65; Resp 12; Pulse Ox 98% on R/A; tw2 ED Course: 09:37 Patient arrived in ED. mr 09:37 Dany Iraheta DO is Private Physician. mr 09:40 Adan Bolden MD is Attending Physician. rn 09:42 Ashley Wharton RN is Primary Nurse. tw2 09:43 Triage completed. tw2 09:45 Arm band placed on. tw2 09:46 Bed in low position. Call light in reach. Adult w/ patient. campus monitor on. Pulse tw2 ox on. NIBP on. Warm blanket given. 09:51 EKG done, by lead technical writer. reviewed by Adan Bolden MD. at1 10:05 Initial lab(s) drawn, by hi, sent to lab. Inserted saline lock: 22 gauge in left em1 antecubital area, using aseptic technique. Blood collected. Missed attempt(s): 22 gauge in left antecubital area. Bleeding controlled, band aid applied, catheter tip intact. 10:10 X-ray completed. Portable x-ray completed in exam room. Patient tolerated procedure sw well. 10:11 XRAY Chest (1 view) In Process Unspecified. EDMS 11:48 No provider procedures requiring assistance completed. tw2 11:52 IV discontinued, intact, bleeding controlled, No redness/swelling at site. Pressure tw2 dressing applied. Administered Medications: 09:56 Drug: Valium 5 mg Route: PO; jl7 10:30 Follow up: Response: No adverse reaction; Marked relief of symptoms; Anxiety decreased tw2 11:47 Drug: Potassium Effervescent Tablet 50 mEq Route: PO; tw2 11:52 Follow up: Response: No adverse reaction tw2 Outcome: 11:34 Discharge ordered by MD. rn 11:51 Discharged to home via wheelchair, with significant other. tw2 11:51 Condition: stable 11:51 Discharge instructions given to patient, significant other, Instructed on discharge instructions, follow up and referral plans. Demonstrated understanding of instructions, follow-up care. 12:12 Patient left the ED. iw Signatures: Dispatcher [employer] EDMS FrostPolly Irene, RN RN iw Adan Bolden MD MD rn Martinez, Eric em1 Mallory Dillon, die machine operator EKG Tat1 Yara Valladares Tara RN RN tw2 Taurus Nevarez RN RN jl7 Corrections: (The following items were deleted from the chart) 09:54 09:43 BP 158 / 83; Pulse 77bpm; Resp 16bpm; Pulse Ox 99%; tw2 tw2
--- NOTE | 2018-09-27 11:35 | EDPHYS ---
Physician Documentation [facility] Name: Emelia Payan Age: 78 yrs Sex: Female : 1940 Arrival Date: 09/27/2018 Time: 09:37 Bed 7 Private MD: Dany Iraheta ED Physician Adan Bolden HPI: 09/27 11:29 This 78 yrs old Female presents to ER via Wheelchair with complaints of rn Anxiety. 11:29 The patient presents with a history of heart racing. Onset: The symptoms/episode rn began/occurred this morning. Duration: The patient or guardian reports a single episode. Associated signs and symptoms: Pertinent positives: anxiety, Pertinent negatives: chest pain, cough, fever, vertigo. Severity of symptoms: At their worst the symptoms were moderate in the emergency department the symptoms have improved. The patient has experienced similar episodes in the past. Reports hx of anxiety, was at home, mopping, states difficult to sleep, heart felt racing, felt anxious, took ativan, didn't help, so came here. Reports under a lot of stress lately, no fever, I just saw her yesterday for abd problems, states that is better. . Historical: - Allergies: 09:53 Cipro; tw2 09:53 Xarelto; tw2 - Home Meds: 09:53 amlodipine 5 mg tab 1 tab once daily [Active]; aspirin 81 mg Oral TbEC 1 tab once daily tw2 [Active]; Ativan 0.5 mg Oral tab [Active]; atorvastatin 10 mg Oral tab 1 tab once daily [Active]; cholecalciferol (vitamin D3) 5,000 unit Oral cap daily [Active]; Creon Oral 1 cap [Active]; Dexilant 60 mg Oral CpDB 1 cap once daily [Active]; fenofibrate 48 mg Oral once daily [Active]; gabapentin 600 mg Oral tab 1 tab 3 times per day [Active]; glipizide 2.5 mg Oral tr24 one tab M, W, F [Active]; hydrocortisone 40 mg Oral tab 4 tabs 2 times per day [Active]; hydrocortisone 0.5 % Topical crea 3 times per day [Active]; hydrocortisone 10 mg Oral tab 2 tabs twice a day [Active]; levothyroxine 112 mcg tab once daily [Active]; lorazepam 0.5 mg Oral tab 1 tab BID PRN for Anxiety [Active]; liothyronine 5 mcg Oral tab 1 tab once daily [Active]; losartan 100 mg Oral tab 1 tab once daily [Active]; omeprazole 20 mg Oral cpDR 1 cap once daily [Active]; omeprazole 40 mg Oral cpDR 1 cap once daily [Active]; Omnitrope subcutaneous once daily [Active]; sotalol 120 mg Oral tab 1 tab 2 times per day [Active]; sotalol 160 mg Oral tab 1 tab 2 times per day [Active]; sucralfate 1 gram Oral tab 1 tab 4 times per day [Active]; warfarin 3 mg Oral tab once daily [Active]; warfarin 3 mg Oral tab 1 tab once daily [Active]; - PMHx: 09:53 DVT; Hypertension; CHF; adrenal insuficiency; Diabetes - IDDM; Anxiety; Hyperlipidemia; tw2 Pancreatitis; Hypothyroidism; - PSHx: 09:53 pituitary gland removal; Hysterectomy; Carpal Tunnel Repair; DVT repair; Lumpectomy; tw2 - Immunization history:: Adult Immunizations. - Social history:: Smoking status: . - Ebola Screening: : Patient denies travel to an Ebola-affected area in the 21 days before illness onset. - Family history:: not pertinent. - Hospitalizations: : No recent hospitalization is reported. ROS: 11:29 Constitutional: Negative for fever, chills, and weight loss, Eyes: Negative for injury, rn pain, redness, and discharge, Neck: Negative for injury, pain, and swelling, Cardiovascular: Negative for chest pain, and edema, Respiratory: Negative for shortness of breath, cough, wheezing, and pleuritic chest pain, Abdomen/GI: Negative for abdominal pain, nausea, vomiting, diarrhea, and constipation, MS/Extremity: Negative for injury and deformity, Skin: Negative for injury, rash, and discoloration, Neuro: Negative for headache, weakness, numbness, tingling, and seizure. Exam: 11:29 Constitutional: This is a well developed, well nourished patient who is awake, alert, rn appears anxious and worried Head/Face: Normocephalic, atraumatic. Eyes: Pupils equal round and reactive to light, extra-ocular motions intact. Lids and lashes normal. Conjunctiva and sclera are non-icteric and not injected. Cornea within normal limits. Periorbital areas with no swelling, redness, or edema. Cardiovascular: Regular rate and rhythm, no JVD. No pulse deficits. Respiratory: Lungs have equal breath sounds bilaterally, clear to auscultation. No increased work of breathing, no retractions or nasal flaring. Abdomen/GI: soft, non-tender Skin: Warm, dry with normal turgor. Normal color with no rashes, no lesions, and no evidence of cellulitis. MS/ Extremity: Pulses equal, no cyanosis. Neurovascular intact. Full, normal range of motion. Equal circumference. Neuro: Awake and alert, GCS 15, oriented to person, place, time, and situation. Cranial nerves II-XII grossly intact. Motor strength 5/5 in all extremities. Sensory grossly intact. Cerebellar exam normal. Vital Signs: 09:43 BP 158 / 83; Pulse 77; Resp 16; Pulse Ox 99% ; Pain 0/10; tw2 09:46 Temp 97.6(TE); tw2 10:04 BP 126 / 68; Pulse 62; Resp 17; Pulse Ox 99% on R/A; tw2 11:00 BP 116 / 59; Pulse 65; Resp 17; Pulse Ox 97% on R/A; tw2 11:42 BP 139 / 75; Pulse 65; Resp 12; Pulse Ox 98% on R/A; tw2 MDM: 09:40 Patient medically screened. rn 11:29 Differential diagnosis: arrythmia, dehydration, stress disorder. Data reviewed: vital rn signs, nurses notes, lab test result(s), EKG, radiologic studies, and as a result, I will discharge patient. 11:33 Counseling: I had a detailed discussion with the patient and/or guardian regarding: the rn historical points, exam findings, and any diagnostic results supporting the discharge/admit diagnosis, lab results, radiology results, the need for outpatient follow up, to return to the emergency department if symptoms worsen or persist or if there are any questions or concerns that arise at home. Special discussion: I discussed with the patient/guardian in detail that at this point there is no indication for admission to the hospital. It is understood, however, that if the symptoms persist or worsen the patient needs to return immediately for re-evaluation. ED course: Pt reports feels back to baseline after valium, has appt with GI tomorrow and cardiology in less than a week, urged to f/u with pcp as well. . 09/27 09:47 Order name: CBC with Diff; Complete Time: 10:42 rn 09/27 09:47 Order name: Basic Metabolic Panel; Complete Time: 10:42 rn 09/27 09:47 Order name: Troponin (emerg Dept Use Only); Complete Time: 10:42 rn 09/27 09:47 Order name: PROBNP; Complete Time: 10:42 rn 09/27 09:47 Order name: XRAY Chest (1 view); Complete Time: 11:00 rn 09/27 09:47 Order name: IV Start; Complete Time: 10:03 rn 09/27 09:47 Order name: EKG; Complete Time: 09:48 rn 09/27 09:47 Order name: EKG - Nurse/Tech; Complete Time: 09:53 rn Administered Medications: 09:56 Drug: Valium 5 mg Route: PO; jl7 10:30 Follow up: Response: No adverse reaction; Marked relief of symptoms; Anxiety decreased tw2 11:47 Drug: Potassium Effervescent Tablet 50 mEq Route: PO; tw2 11:52 Follow up: Response: No adverse reaction tw2 Disposition: 09/27/18 11:34 Discharged to Home. Impression: Acute stress reaction. - Condition is Stable. - Discharge Instructions: Stress and Stress Management, Hypokalemia. - Medication Reconciliation Form, Thank You Letter, Antibiotic Education, Prescription Opioid Use form. - Follow up: Private Physician; When: As needed; Reason: Recheck today's complaints, Re-evaluation by your physician. - Problem is new. - Symptoms have improved. Signatures: Dispatcher [employer] EDNE Alvina Balderrama, [employer] W[employer]ER-C [employer] WARMER-Csnw Guerita Ray, RN RN iw Adan Bolden MD MD rn Wise, Tara RN RN tw2 Taurus Nevarez RN RN jl7 Corrections: (The following items were deleted from the chart) 12:12 11:34 09/27/2018 11:34 Discharged to Home. Impression: Acute stress reaction. Condition iw is Stable. Forms are Medication Reconciliation Form, Thank You Letter, Antibiotic Education, Prescription Opioid Use. Follow up: Private Physician; When: As needed; Reason: Recheck today's complaints, Re-evaluation by your physician. Problem is new. Symptoms have improved. rn
[2018-09-27] MEDS ORDERED: POTASSIUM 25 MEQ EFFERV TAB ONE (11:55)
[2018-09-27 12:22] VITALS: TEMP 97.6
[2018-09-27 12:26] VITALS: BP 139/75; O2SAT 98
--- NOTE | 2018-09-27 19:47 | EKG ---
Test Date: 2018-09-27 Test Time: 09:45:36 Manufacturing Quality Engineer: JOEL MEASUREMENT RESULTS: Intervals: Rate: 76 MD: 140 QRSD: 72 QT: 428 QTc: [address]: P: -3 MD: 140 QRS: -18 T: -15 INTERPRETIVE STATEMENTS: Normal sinus rhythm with sinus arrhythmia Nonspecific ST and T wave abnormality Abnormal ECG Compared to ECG 09/26/2018 09:45:05 ST (T wave) deviation now present T-wave abnormality no longer present Prolonged QT interval no longer present Electronically Signed On 09-27-18 19:45:37 AMBULATORY CARE COORDINATOR by Heladio Diaz
== END 2018-09-27 12:12 | disposition home or self-care (01) ==
LOC: ER 09:34
DX: F43.0 Acute stress reaction (principal); I11.0 Hypertensive heart disease with heart failure; I50.9 Heart failure, unspecified; E11.9 Type 2 diabetes mellitus without complications; E78.5 Hyperlipidemia, unspecified; E03.9 Hypothyroidism, unspecified; Z79.01 Long term (current) use of anticoagulants; Z79.82 Long term (current) use of aspirin; Z79.4 Long term (current) use of insulin
CPT/HCPCS: 36415; 71045; 80048; 83880; 84484; 85025; 93005; 99284

== ENCOUNTER 2018-10-06 11:54 | Observation (INO) | payer OTHER ==
--- OUTSIDE RECORDS SUMMARY | 2018-10-06 11:59 | XMS REPORT | Clinical Summary ---
:1940 Author Organization [facility] Address [address] [place] [address] Care Team Providers Name Role Phone Unavailable [...] Description 03/14/2018 Anesthesia Event Gastroenterology Marc Fernandez III, MD 03/14/2018 Surgery Gastroenterology [facility] UPPER ENDOSCOPY,BIOPSY [facility] 03/14/2018 Hospital Gastroenterology [facility] Encounter [facility] 03/13/2018 Hospital Pre-Admission Testing [facility] Encounter [facility] Diana, [facility] Phone 01/13/2018 Hospital Intensive Care Samaria [...] Medicine Samaria Seals Tachycardia MD Natanael after 10/05/2017 Family History Medical History Relation Name Comments [...] CULTURE Routine 01/14/2018 1:26 AM CDT after 10/05/2017 Results REPORT OF PROCEDURE - ENDOSCOPY URL (03/14/2018 12:19 PM CDT) Narrative Performed At POC-Glucose meter (03/14/2018 11:55 AM CDT)Only the most recent of17 resultswithin the time period is included. POC-Glucose Meter 75Comment: TESTED AT 70 - 110 mg/dL [facility] [address] [facility] [address] Specimen Blood Performing Organization Address City/State/Zipcode Phone Number [place] [phone] [place], [place] [phone] CENTER Tissue Exam (03/14/2018 11:15 AM CDT) Case Report Surgical Pathology Report Case: [id number] [facility] Authorizing Provider:Luiz Hayesected: 03/14/2018 1115 [facility] Ordering Location: [facility] Endoscopy Received: 03/14/2018 1351 Services Pathologist: Mara Barboza MD Specimens: A) - Polyp, Duodenum B) - Stomach,Antrum, bx C) - Biopsy, Gastric, gastric body D) - Biopsy, Esophagus, random ADDENDUM THIS ADDENDUM IS ISSUED TO REPORT THE RESULT OF IMMUNOHISTOCHEMICAL STUDY FOR HELICOBACTER PYLORI OM SPECIMEN B: [facility] - NEGATIVE [facility] CPT CODE: 15985 DIAGNOSIS A. DUODENUM, ENDOSCOPIC POLYPECTOMY: [facility] - COMPATIBLE WITH PEPTIC DUODENITIS [facility] - NO FEATURES OF CELIAC DISEASE SEEM [...] MALIGNANCY SEEN Signing Pathologist Direct Phone Line: [phone] CPT Code(s) 66398 X 4; 15316 X 2 [facility] SPECIMEN SOURCE A. Polyp, duodenum. B. Stomach [facility] antrum. C. Biopsy, gastric, [facility] description gastric body. D. Biopsy, esophagus, description random GROSS DESCRIPTION Part A. Received in formalin, labeled "polyp, duodenum", is a 0.5 x 0.4 x 0.2 cm polypoid shaped brown-chavez fragment of soft tissue. The base is inked green, and the polyp is bisected and submitted entirely in one cassette (A1). [facility] Part B. Received in formalin labeled "stomach, [...] is incorporated in the diagnostic report above: [facility] WARTHIN-STARRY X 2 [facility] Specimen Tissue - Polyp, Duodenum Performing Organization Address City/State/Zipcode Phone Number [facility] [address] [place] [address] [phone] CENTER EKG-SCANNED (01/20/2018 3:11 PM CDT) Narrative Performed At RHYTHM STRIP - SCAN (01/20/2018 3:11 PM CDT) Narrative Performed At ECHOCARDIOGRAM REPORT - SCAN (01/19/2018 2:21 PM CDT) Narrative Performed At 2D Echo W/Doppler(CW/PW/Color) (01/18/2018 1:59 PM CDT) Ejection Fraction [facility] Narrative Performed At Transthoracic Echocardiography Report (TTE) [facility] Demographics Patient NameDANA PAYAN Date of Study 01/18/2018 GenderFemale Visit [id number] [place] Number [id number] Number Date of 1940 Referring Physician MORENA James Age 77 year(s) 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 WBC 4.8 3.5 - 10.5 K/L [facility] RBC 3.28 (L) 3.93 - 5.22 M/L [facility] Hemoglobin 10.4 (L) 11.2 - 15.7 GM/DL [facility] Hematocrit 32.7 (L) 34.1 - 44.9 % [facility] MCV 99.7 (H) 79.4 - 94.8 fL [facility] MCH 31.7 25.6 - 32.2 pg [facility] MCHC 31.8 (L) 32.2 - 35.5 GM/DL [facility] RDW 14.7 (H) 11.7 - 14.4 % [facility] Platelets 141 (L) 150 - 450 K/CU MM [facility] MPV 11.2 9.4 - 12.3 fL [facility] nRBC 0 0 - 0 /100 WBC [facility] % Neutros 67 % [facility] % Lymphs 26 % [facility] % Monos 5 % [facility] % Eos 1 % [facility] % Baso 0 % [facility] # Neutros 3.21 1.56 - 6.13 K/L [facility] # Lymphs 1.24 1.18 - 3.74 K/L [facility] # Monos 0.23 (L) 0.24 - 0.36 K/L [facility] # Eos 0.06 0.04 - 0.36 K/L [facility] # Baso 0.02 0.01 - 0.08 K/L [facility] Immature Granulocytes-Relative 1 0 - 1 % [facility] Specimen Blood - Arm, Left Performing Organization Address City/State/Zipcode Phone Number [facility] [address] [place] [address] CENTER Prothrombin time/INR (01/18/2018 3:49 AM CDT)Only the most recent of7 resultswithin the time period is included. Protime 23.7 (H) 11.7 - 14.7 seconds [facility] INR 2.1 <=5.9 [facility] Specimen Blood - Arm, Left Narrative Performed At [facility] RECOMMENDED COUMADIN/WARFARIN INR THERAPY RANGES STANDARD DOSE: 2.0 - 3.0 Includes: PROPHYLAXIS for venous thrombosis, systemic embolization; TREATMENT for venous thrombosis and/or pulmonary embolus. HIGH RISK: Target INR is 2.5-3.5 for patients with mechanical heart valves. Performing Organization Address City/[facility]/Zipcode Phone Number [facility] [address] [place] [address] [place] Magnesium (01/18/2018 3:49 AM CDT)Only the most recent of8 resultswithin the time period is included. Magnesium 1.7 1.6 - 2.6 mg/dL [facility] Specimen Blood - Arm, Left Performing Organization Address [facility] Phone Number [address] [address] [place] Comprehensive metabolic panel (01/18/2018 3:49 AM CDT)Only the most recent of6 resultswithin the time period is included. Protein, Total 5.2 (L) 6.0 - 8.3 gm/dL [facility] Albumin 3.0 (L) 3.5 - 5.0 g/dL [facility] Alkaline Phosphatase 39 (L) 40 - 150 U/L [facility] Total Bilirubin 0.4 0.2 - 1.2 mg/dL [facility] Sodium 145 136 - 145 meq/L [facility] Potassium 3.6 3.5 - 5.1 meq/L [facility] Chloride 109 (H) 98 - 107 meq/L [facility] CO2 28 22 - 29 meq/L [facility] BUN 8 7 - 21 mg/dL [facility] Creatinine 0.70 0.57 - 1.25 mg/dL [facility] Glucose 107 (H) 70 - 105 mg/dL [facility] Calcium 8.4 8.4 - 10.2 mg/dL [facility] AST 9 5 - 34 U/L [facility] ALT <6 (L) 6 - 55 U/L [facility] EGFR 81Comment: ESTIMATED GFR mL/min/1.73 sq m [facility] IS NOT ACCURATE [facility] CREATININE CLEARANCE IN PREDICTING GLOMERULAR FILTRATION RATE. ESTIMATED GFR IS NOT APPLICABLE FOR DIALYSIS PATIENTS. Specimen Blood - Arm, Left Performing Organization Address [facility] Phone Number [facility] [address] [place] [address] [phone] CENTER ECG 12 lead (01/17/2018 7:28 AM CDT)Only the most recent of2 resultswithin the time period is included. Narrative Performed At Ventricular Rate 62 BPM GE MUSE Atrial Rate 62 BPM P-R Interval 126 ms QRS Duration 72 ms Q-T Interval 392 ms QTC Calculation(Bazett) 397 ms P [place] 43 degrees R [place] 0 degrees T [place] 4 degrees Normal sinus rhythm Normal ECG [...] 392 ms QTC Calculation(Bazett) 397 ms P [place] 43 degrees R [place] 0 degrees T [place] 4 degrees Normal sinus rhythm Normal ECG When compared with ECG of 14-JAN-2018 07:47, Sinus rhythm has replaced Atrial fibrillation Vent. rate has decreased BY 67 BPM Confirmed by Myriam CABELLO BASANT ([id number]) on 01/17/2018 9:57:49 PM Performing Organization Address [facility] Phone Number [employer] MUSE T3, free (01/17/2018 3:19 AM CDT) T3, Free 1.31 (L) 1.71 - 3.71 pg/mL [facility] Specimen Blood - Central Venous Line Performing Organization Address City/[facility] Phone Number [facility] [address] [address] CENTER T3 (01/17/2018 3:19 AM CDT) T3, Total 41 (L) 48 - 159 ng/dL [facility] Specimen Blood - Central Venous Line Performing Organization Address [facility] Phone Number [address] [address] CENTER Lipase (01/17/2018 3:19 AM CDT)Only the most recent of2 resultswithin the time period is included. Lipase 471 (H) 8 - 78 U/L [facility] Specimen Blood - Central Venous Line Performing Organization Address [facility] Phone Number [address] [address] [phone] [place] Basic Metabolic Panel (01/16/2018 4:26 PM CDT) Sodium 143 136 - 145 meq/L [facility] Potassium 4.1 3.5 - 5.1 meq/L [facility] Chloride 109 (H) 98 - 107 meq/L [facility] CO2 24 22 - 29 meq/L [facility] BUN 9 7 - 21 mg/dL [facility] Creatinine 0.74 0.57 - 1.25 mg/dL [facility] Glucose 249 (H) 70 - 105 mg/dL [facility] Calcium 8.1 (L) 8.4 - 10.2 mg/dL [facility] EGFR 76Comment: ESTIMATED GFR IS mL/min/1.73 sq m [facility] NOT ACCURATE CREATININE [facility] C[facility] CLEARANCE IN PREDICTING GLOMERULAR FILTRATION RATE. ESTIMATED GFR IS NOT APPLICABLE FOR DIALYSIS PATIENTS. Specimen Blood Performing Organization Address [facility] Phone Number [address] [address] CENTER Clostridium difficile [facility] Toxin (01/16/2018 4:08 AM CDT) C. Difficle Toxin Negative Negative [facility] C. Difficile [facility] Antigen Positive (A)Comment: C. Negative [facility] difficile present but toxin [facility] not detected. Indicates colonization with non-toxigenic strain or level of toxin below detectable levels. No need for enteric isolation. Treatment is rarely needed (only when strong clinical suspicion for Clostridium difficile infection) Specimen Stool - Stool Narrative Performed At Testing performed by [employer] [facility] Assay.For GDH, published sensitivity of the assay is 98.7% compared to cytotoxicity testing.For Toxin AB, published sensitivity is 87.8% and specificity 99.4% compared to cytotoxicity testing. Verification of kit performance was done by the [facility] Microbiology Lab prior to clinical use. Performing Organization Address City/[facility] Phone Number [address] [address] [place] Potassium (01/15/2018 5:00 PM CDT)Only the most recent of2 resultswithin the time period is included. Potassium 4.2 3.5 - 5.1 meq/L [facility] Specimen Blood Performing Organization Address [facility] Phone Number [address] [address] [place] Troponin I (01/14/2018 12:14 PM CDT)Only the most recent of2 resultswithin the time period is included. Troponin I 0.02 0.00 - 0.03 ng/mL [facility] Specimen Blood Narrative Performed At [facility] Troponin I (TnI) levels must be interpreted [...] tachyarrhythmia. Performing Organization Address City/State/Zipcode Phone Number [facility] [address] [place] [address] CENTER B-type Natriuretic Factor (BNP) (01/14/2018 11:08 AM CDT) BNP 975 (H) 0 - 100 pg/mL [facility] Specimen Blood Performing Organization Address [facility]/Zipcode Phone Number [facility] [address] [place] [address] [place] US abdomen limited (01/14/2018 6:45 AM CDT) Narrative Performed At FINAL REPORT [employer] INDICATION: 77-year-old female with abdominal pain and [...] MD Report Verified Date/Time:01/14/2018 10:23:02 Reading Location: [facility] C013X Ortho Consult Reading Room Procedure Note [...] evidence of cholelithiasis or cholecystitis. Signed: Augustine Yusfu MD Report Verified Date/Time: 01/14/2018 10:23:02 Reading Location: [facility] C013X Ortho Consult Reading Room Performing Organization Address City/[facility] Phone Number [facility] Vitamin B12 and Folate (01/14/2018 6:34 AM CDT) Vitamin B12 1,276 (H) 213 - 816 pg/mL [facility] Folate 8.8 >=7.0 ng/mL [facility] Specimen Blood - Line, Venous Performing Organization Address City/State/Zipcode Phone Number [address] [address] CENTER TSH/Free T4 If Indicated (01/14/2018 6:34 AM CDT) TSH 0.02 (L) 0.35 - 4.94 uIU/mL [facility] Specimen Blood - Line, Venous Performing Organization Address [facility] Phone Number [address] [address] [place] T4, free (01/14/2018 6:34 AM CDT) Free T4 0.83 0.70 - 1.48 ng/dL [facility] Specimen Blood - Line, Venous Performing Organization Address [facility] Phone Number [address] [address] [place] Lipid panel (01/14/2018 6:34 AM CDT) Triglycerides 171 mg/dL [facility] Cholesterol 123 mg/dL [facility] HDL 25 mg/dL [facility] LDL Calculated 64 mg/dL [facility] Specimen Blood - Line, Venous Narrative Performed At [facility] Triglyceride Reference Range: Low Risk <150 [id number] High Risk 200-499 Very High Risk>=500 Cholesterol Reference Range: Low Risk <200 [id number] High Risk>240 HDL Cholesterol Reference Range: Low Risk >=60 High Risk <40 LDL Cholesterol Reference Range: Optimal<100 Near [id number] Qyjwrtseks480-633 [id number] Very High >=190 Performing Organization Address [facility] Phone Number [address] [address] CENTER Blood culture (01/14/2018 1:28 AM CDT)Only the most recent of2 resultswithin the time period is included. Result No growth in 5 days [facility] Specimen Blood - Line, Venous Performing Organization Address [facility] Phone Number [address] [address] [place] Urinalysis w/Microscopic (01/14/2018 1:28 AM CDT) Color, UA Yellow [facility] Clarity, UA Clear [facility] Specific Maxbass, UA 1.043 (H) 1.001 - 1.035 [facility] pH, UA 6.5 5.0 - 8.0 [facility] Protein, UA 20 mg/dL (A) Negative [facility] Glucose, UA 1000 mg/dL (A) Negative [facility] Ketones, UA Negative Negative [facility] Bilirubin, UA Negative Negative [facility] Blood, UA Trace (A) Negative [facility] Nitrite, UA Negative Negative [facility] Leukocytes, UA Negative Negative [facility] Urobilinogen, UA 0.2 0.2 - 1.0 mg/dL [facility] RBC, UA 1 /HPF [facility] WBC, UA 3 /HPF [facility] Bacteria, UA Rare [facility] Specimen Source Urine, Taylor [facility] Specimen Urine - Urine, Taylor Performing Organization Address City/[facility]/Zipcode Phone Number [address] [address] [place] Urine culture (01/14/2018 1:28 AM CDT) Result No growth [facility] Specimen Urine - Urine, Taylor Performing Organization Address City/[facility]/Zipcode Phone Number [address] [address] [place] Procalcitonin (01/14/2018 1:26 AM CDT) Procalcitonin 0.41 (H) <0.05 ng/mL [facility] Specimen Blood - Central Venous Line Narrative Performed At [facility] SEPSIS RISK (ng/mL) Low:0.05-0.50 Intermediate: 0.51-2.00 High: >=2.01 Performing Organization Address [facility] Phone Number [address] [address] [place] Lactic acid, venous, whole blood (01/14/2018 1:26 AM CDT) Lactate, Venous 1.3Comment: Specimen 0.5 - 2.2 mmol/L [facility] slightly hemolyzed [facility] Specimen Blood - Central Venous Line Narrative Performed At [facility] Effective 01/07/2016: Units/Reference Range Change New: 0.5-2.2 mmol/LPrevious: 5-20 mg/dL Performing Organization Address [facility] Phone Number [address] [address] [phone] [place] aPTT (01/14/2018 1:26 AM CDT) PTT 32.4 22.5 - 36.0 seconds [facility] Specimen Blood - Central Venous Line Performing Organization Address [facility] Phone Number [address] [address] [place] Amylase (01/14/2018 1:26 AM CDT) Amylase 226 (H) 25 - 125 U/L [facility] Specimen Blood - Central Venous Line Performing Organization Address [facility] Phone Number [address] [address] [place] after 10/05/2017 Insurance Payer Benefit Plan / Group Subscriber ID Type Phone Address MEDICARE MEDICARE A B xxxxxxxxxx Medicare AETNA - MGD CARE AETNA INDEMNITY NON CONTR xxxxxxxxxx Comm ([place]) [place] [address] Advance Directives For more information, please contact:[address] [place], [place] [phone] Code Status Date Activated Date Inactivated Comments Full Code 01/14/2018 12:36 AM 01/18/2018 6:55 PM This code status was determined by: Patient
--- OUTSIDE RECORDS SUMMARY | 2018-10-06 12:00 | XMS REPORT ---
:1940 [facility] Address [address] [place] [address] Dr. Saunders [address] [place] [id number] Care Team Providers Name Role Phone MACIEJ VILLA Unavailable Unavailable RANCHO SANDOVAL Unavailable Unavailable Problems This patient has no known problems. Allergies, Adverse Reactions, Alerts This patient has no known allergies or adverse reactions. Medications This patient has no known medications. Results Test Description Test Time Test Comments Text Results Atomic Results Result Comments TISSUE EXAM 2018-03-20 13:06:00 Surgical Pathology Report Case: [id number] Authorizing Provider: Maciej Villa Collected: 03/14/2018 1115 Ordering Location: [facility] Endoscopy Received: 03/14/2018 1351 Services Pathologist: Mara Barboza MD Specimens: A) - Polyp, Duodenum B) - Stomach, Antrum, bx C) - Biopsy, Gastric, gastric body D) - Biopsy, Esophagus, random THIS ADDENDUM IS ISSUED TO REPORT THE RESULT OF IMMUNOHISTOCHEMICAL STUDY FOR HELICOBACTER PYLORI OM SPECIMEN B: - NEGATIVE CPT CODE: [id number] electronically signed by Mara Barboza MD on [...] MALIGNANCY SEEN Signing Pathologist Direct Phone Line: [phone] signed by Mara Barboza MD on 03/17/2018 at 10:35 [id number] X 4; [id number] X 2A. Polyp, duodenum. B. Stomach antrum. [...] (BEAKER) (test 75 mg/dL 70-110 TESTED AT [facility] [address] [facility] msga=0515) [facility] [address] BLOOD [id number] 06:00:00 Test Item Value Reference Range Comments CULTURE (BEAKER) (test svea=1788) No growth in 5 days BLOOD [id number] 06:00:00 Test Item Value Reference Range Comments CULTURE (BEAKER) (test ignp=6352) No growth in 5 days POCT-GLUCOSE [id number] 12:32:00 Test Item Value Reference Range Comments POC-GLUCOSE METER (BEAKER) 217 mg/dL 70-110 TESTED AT [facility] [address] [facility] (test dykp=8287) [facility] [address] POCT-GLUCOSE [id number] 08:36:00 Test Item Value Reference Range Comments POC-GLUCOSE METER (BEAKER) 92 mg/dL 70-110 TESTED AT [place] [id number] [facility] (test nmrz=7115) [facility] [address] COMPREHENSIVE METABOLIC [id number] 04:59:00 Test Item Value Reference Range Comments TOTAL PROTEIN (BEAKER) 5.2 gm/dL 6.0-8.3 (test zvvn=667) ALBUMIN (BEAKER) (test 3.0 g/dL 3.5-5.0 gyqk=9497) ALKALINE PHOSPHATASE 39 U/L 40-150 (BEAKER) (test qtbo=935) BILIRUBIN TOTAL (BEAKER) 0.4 mg/dL 0.2-1.2 (test qpkt=770) SODIUM (BEAKER) (test 145 meq/L 136-145 hdht=803) POTASSIUM (BEAKER) (test 3.6 meq/L 3.5-5.1 qfbq=033) CHLORIDE (BEAKER) (test 109 meq/L 98-107 jclb=664) CO2 (BEAKER) (test 28 meq/L 22-29 diwj=911) BLOOD UREA NITROGEN 8 mg/dL 7-21 (BEAKER) (test bsvu=431) CREATININE (BEAKER) (test 0.70 mg/dL 0.57-1.25 txha=535) GLUCOSE RANDOM (BEAKER) 107 mg/dL 70-105 (test cmzd=380) CALCIUM (BEAKER) (test 8.4 mg/dL 8.4-10.2 ndlf=548) AST (SGOT) (BEAKER) (test 9 U/L 5-34 ctun=352) ALT (SGPT) (BEAKER) (test < U/L 6-55 izsv=093) EGFR (BEAKER) (test 81 mL/min/1.73 sq m ESTIMATED GFR IS NOT oeex=6036) ACCURATE CREATININE CLEARANCE IN PREDICTING GLOMERULAR FILTRATION RATE. ESTIMATED GFR IS NOT APPLICABLE FOR DIALYSIS PATIENTS. [id number] 04:50:00 Test Item Value Reference Range Comments MAGNESIUM (BEAKER) (test pmrn=321) 1.7 mg/dL 1.6-2.6 PROTHROMBIN [id number] 04:35:00 Test Item Value Reference Range Comments PROTIME (BEAKER) (test brhl=629) 23.7 seconds 11.7-14.7 INR (BEAKER) (test kkqd=932) 2.1 <=5.9 RECOMMENDED COUMADIN/WARFARIN INR THERAPY RANGESSTANDARD DOSE: 2.0 - 3.0 Includes: PROPHYLAXIS forvenous thrombosis, systemic embolization; TREATMENT for venous thrombosis and/or pulmonary embolus.HIGH RISK: Target INR is 2.5-3.5 for patients with mechanical heart valves.CBC W/PLT COUNT & AUTO [id number] 04:24:00 Test Item Value Reference Range Comments WHITE BLOOD CELL COUNT (BEAKER) (test obuv=753) 4.8 K/ L 3.5-10.5 RED BLOOD CELL COUNT (BEAKER) (test hkut=315) 3.28 M/ L 3.93-5.22 HEMOGLOBIN (BEAKER) (test pjta=718) 10.4 GM/DL 11.2-15.7 HEMATOCRIT (BEAKER) (test hldq=979) 32.7 % 34.1-44.9 MEAN CORPUSCULAR VOLUME (BEAKER) (test cjdh=524) 99.7 fL 79.4-94.8 MEAN CORPUSCULAR HEMOGLOBIN (BEAKER) (test 31.7 pg 25.6-32.2 jonc=686) MEAN CORPUSCULAR HEMOGLOBIN CONC (BEAKER) (test 31.8 GM/DL 32.2-35.5 iust=327) RED CELL DISTRIBUTION WIDTH (BEAKER) (test 14.7 % 11.7-14.4 pxlo=903) PLATELET COUNT (BEAKER) (test rrpq=315) 141 K/CU MM 150-450 MEAN PLATELET VOLUME (BEAKER) (test tcvi=391) 11.2 fL 9.4-12.3 NUCLEATED RED BLOOD CELLS (BEAKER) (test 0 /100 WBC 0-0 acnp=229) NEUTROPHILS RELATIVE PERCENT (BEAKER) (test 67 % nbdz=488) LYMPHOCYTES RELATIVE PERCENT (BEAKER) (test 26 % mfpm=393) MONOCYTES RELATIVE PERCENT (BEAKER) (test 5 % xtpg=762) EOSINOPHILS RELATIVE PERCENT (BEAKER) (test 1 % pwfo=521) BASOPHILS RELATIVE PERCENT (BEAKER) (test 0 % utsc=211) NEUTROPHILS ABSOLUTE COUNT (BEAKER) (test 3.21 K/ L 1.56-6.13 vndk=752) LYMPHOCYTES ABSOLUTE COUNT (BEAKER) (test 1.24 K/ L 1.18-3.74 nzmr=195) MONOCYTES ABSOLUTE COUNT (BEAKER) (test 0.23 K/ L 0.24-0.36 oaph=301) EOSINOPHILS ABSOLUTE COUNT (BEAKER) (test 0.06 K/ L 0.04-0.36 ccwo=304) BASOPHILS ABSOLUTE COUNT (BEAKER) (test 0.02 K/ L 0.01-0.08 egjr=443) IMMATURE GRANULOCYTES-RELATIVE PERCENT (BEAKER) 1 % 0-1 (test wqaa=3910) POCT-GLUCOSE [id number] 22:13:00 Test Item Value Reference Range Comments POC-GLUCOSE METER (BEAKER) 194 mg/dL 70-110 TESTED AT [address] (test qegs=0045) [place] [address] POCT-GLUCOSE [id number] 18:14:00 Test Item Value Reference Range Comments POC-GLUCOSE METER (BEAKER) 195 mg/dL 70-110 TESTED AT [address] (test jraj=1295) [place] [address] POCT-GLUCOSE [id number] 12:20:00 Test Item Value Reference Range Comments POC-GLUCOSE METER (BEAKER) 224 mg/dL 70-110 TESTED AT [address] (test pskn=8354) [place] [address] [id number] 08:55:00 Test Item Value Reference Range Comments LIPASE (BEAKER) (test aljm=142) 471 U/L 8-78 POCT-GLUCOSE [id number] 08:12:00 Test Item Value Reference Range Comments POC-GLUCOSE METER (BEAKER) 128 mg/dL 70-110 TESTED AT [address] (test evhr=0791) [place] [address] [id number] 04:12:00 Test Item Value Reference Range Comments T3 TOTAL (BEAKER) (test ulzh=119) 41 ng/dL 48-159 T3, [id number] 04:11:00 Test Item Value Reference Range Comments T3 FREE (BEAKER) (test cngz=111) 1.31 pg/mL 1.71-3.71 COMPREHENSIVE METABOLIC [id number] 04:01:00 Test Item Value Reference Range Comments TOTAL PROTEIN (BEAKER) 4.8 gm/dL 6.0-8.3 (test qpff=265) ALBUMIN (BEAKER) (test 2.8 g/dL 3.5-5.0 hijk=1296) ALKALINE PHOSPHATASE 33 U/L 40-150 (BEAKER) (test ibys=090) BILIRUBIN TOTAL (BEAKER) 0.4 mg/dL 0.2-1.2 (test enki=980) SODIUM (BEAKER) (test 143 meq/L 136-145 nnsl=088) POTASSIUM (BEAKER) (test 4.0 meq/L 3.5-5.1 nrbg=803) CHLORIDE (BEAKER) (test 110 meq/L 98-107 fcbn=950) CO2 (BEAKER) (test 26 meq/L 22-29 fepg=666) BLOOD UREA NITROGEN 9 mg/dL 7-21 (BEAKER) (test ziop=902) CREATININE (BEAKER) (test 0.73 mg/dL 0.57-1.25 jrvu=334) GLUCOSE RANDOM (BEAKER) 213 mg/dL 70-105 (test lytv=382) CALCIUM (BEAKER) (test 8.2 mg/dL 8.4-10.2 cymr=119) AST (SGOT) (BEAKER) (test 8 U/L 5-34 psbq=321) ALT (SGPT) (BEAKER) (test < U/L 6-55 oome=930) EGFR (BEAKER) (test 77 mL/min/1.73 sq m ESTIMATED GFR IS NOT vgsb=1714) ACCURATE CREATININE CLEARANCE IN PREDICTING GLOMERULAR FILTRATION RATE. ESTIMATED GFR IS NOT APPLICABLE FOR DIALYSIS PATIENTS. [id number] 03:54:00 Test Item Value Reference Range Comments MAGNESIUM (BEAKER) (test qock=986) 1.7 mg/dL 1.6-2.6 PROTHROMBIN [id number] 03:53:00 Test Item Value Reference Range Comments PROTIME (BEAKER) (test rqrn=700) 22.4 seconds 11.7-14.7 INR (BEAKER) (test rdbo=181) 2.0 <=5.9 RECOMMENDED COUMADIN/WARFARIN INR THERAPY RANGESSTANDARD DOSE: 2.0 - 3.0 Includes: PROPHYLAXIS forvenous thrombosis, systemic embolization; TREATMENT for venous thrombosis and/or pulmonary embolus.HIGH RISK: Target INR is 2.5-3.5 for patients with mechanical heart valves.CBC W/PLT COUNT & AUTO [id number] 03:46:00 Test Item Value Reference Range Comments WHITE BLOOD CELL COUNT (BEAKER) (test ohcj=224) 5.3 K/ L 3.5-10.5 RED BLOOD CELL COUNT (BEAKER) (test dqgv=405) 3.04 M/ L 3.93-5.22 HEMOGLOBIN (BEAKER) (test ning=665) 9.7 GM/DL 11.2-15.7 HEMATOCRIT (BEAKER) (test twjb=803) 30.6 % 34.1-44.9 MEAN CORPUSCULAR VOLUME (BEAKER) (test fdvr=095) 100.7 fL 79.4-94.8 MEAN CORPUSCULAR HEMOGLOBIN (BEAKER) (test 31.9 pg 25.6-32.2 wobb=353) MEAN CORPUSCULAR HEMOGLOBIN CONC (BEAKER) (test 31.7 GM/DL 32.2-35.5 stji=566) RED CELL DISTRIBUTION WIDTH (BEAKER) (test 14.6 % 11.7-14.4 dmio=193) PLATELET COUNT (BEAKER) (test qcsy=900) 135 K/CU MM 150-450 MEAN PLATELET VOLUME (BEAKER) (test clet=328) 11.4 fL 9.4-12.3 NUCLEATED RED BLOOD CELLS (BEAKER) (test 0 /100 WBC 0-0 iqyd=739) NEUTROPHILS RELATIVE PERCENT (BEAKER) (test 76 % zdsw=417) LYMPHOCYTES RELATIVE PERCENT (BEAKER) (test 19 % qjip=439) MONOCYTES RELATIVE PERCENT (BEAKER) (test 3 % tusj=311) EOSINOPHILS RELATIVE PERCENT (BEAKER) (test 0 % hiyo=942) BASOPHILS RELATIVE PERCENT (BEAKER) (test 0 % foyq=791) NEUTROPHILS ABSOLUTE COUNT (BEAKER) (test 4.02 K/ L 1.56-6.13 nvud=872) LYMPHOCYTES ABSOLUTE COUNT (BEAKER) (test 1.01 K/ L 1.18-3.74 ffmv=936) MONOCYTES ABSOLUTE COUNT (BEAKER) (test 0.15 K/ L 0.24-0.36 xche=277) EOSINOPHILS ABSOLUTE COUNT (BEAKER) (test 0.01 K/ L 0.04-0.36 qwgr=611) BASOPHILS ABSOLUTE COUNT (BEAKER) (test 0.01 K/ L 0.01-0.08 keiz=177) IMMATURE GRANULOCYTES-RELATIVE PERCENT (BEAKER) 1 % 0-1 (test haca=7972) POCT-GLUCOSE [id number] 22:34:00 Test Item Value Reference Range Comments POC-GLUCOSE METER (BEAKER) 252 mg/dL 70-110 TESTED AT [facility] [address] [facility] (test pyxb=7029) [facility] [address] [id number] 19:36:00 Test Item Value Reference Range Comments MAGNESIUM (BEAKER) (test pixs=834) 1.6 mg/dL 1.6-2.6 BASIC METABOLIC [id number] 19:36:00 Test Item Value Reference Range Comments SODIUM (BEAKER) (test 143 meq/L 136-145 anvz=499) POTASSIUM (BEAKER) (test 4.1 meq/L 3.5-5.1 eekk=979) CHLORIDE (BEAKER) (test 109 meq/L 98-107 injj=304) CO2 (BEAKER) (test 24 meq/L 22-29 reij=362) BLOOD UREA NITROGEN 9 mg/dL 7-21 (BEAKER) (test xjkf=172) CREATININE (BEAKER) (test 0.74 mg/dL 0.57-1.25 rpxr=571) GLUCOSE RANDOM (BEAKER) 249 mg/dL 70-105 (test bjqv=369) CALCIUM (BEAKER) (test 8.1 mg/dL 8.4-10.2 zpzo=994) EGFR (BEAKER) (test 76 mL/min/1.73 sq m ESTIMATED GFR IS NOT farl=6713) ACCURATE CREATININE CLEARANCE IN PREDICTING GLOMERULAR FILTRATION RATE. ESTIMATED GFR IS NOT APPLICABLE FOR DIALYSIS PATIENTS. URINE [id number] 11:51:00 Test Item Value Reference Range Comments CULTURE (BEAKER) (test pdor=5140) No growth POCT-GLUCOSE [id number] 11:42:00 Test Item Value Reference Range Comments POC-GLUCOSE METER (BEAKER) 205 mg/dL 70-110 TESTED AT [address] (test eyre=4664) [facility] [address] POCT-GLUCOSE [id number] 08:08:00 Test Item Value Reference Range Comments POC-GLUCOSE METER (BEAKER) 119 mg/dL 70-110 TESTED AT [address] (test xbma=2906) [place] [id number] C. DIFFICILE GDH [id number] 07:40:00 Test Item Value Reference Range Comments CDT TOXIN (test Negative Negative vesq=[id number]) CDT GDH ANTIGEN (test Positive Negative C. difficile present but toxin ckhp=[id number]) not detected. Indicates colonization with non-toxigenic strain or level of toxin below detectable levels. No need for enteric isolation. Treatment is rarely needed (only when strong clinical suspicion for Clostridium difficile infection) Testing performed by [employer] Rapid Cassette Assay. For GDH, published sensitivity of the assay is 98.7% compared to cytotoxicity testing. For Toxin AB, published sensitivity is 87.8% and specificity 99.4% compared to cytotoxicity testing.Verification of kit performance was done by the [facility] Microbiology Lab prior to clinical use.POCT-GLUCOSE [id number] 06:37:00 Test Item Value Reference Range Comments POC-GLUCOSE METER (BEAKER) 141 mg/dL 70-110 TESTED AT [address] (test jbnd=3736) [facility] [address] COMPREHENSIVE METABOLIC [id number] 04:48:00 Test Item Value Reference Range Comments TOTAL PROTEIN (BEAKER) 4.7 gm/dL 6.0-8.3 (test ugbu=041) ALBUMIN (BEAKER) (test 2.7 g/dL 3.5-5.0 irlr=3467) ALKALINE PHOSPHATASE 33 U/L 40-150 (BEAKER) (test wqqm=272) BILIRUBIN TOTAL (BEAKER) 0.4 mg/dL 0.2-1.2 (test uzgm=145) SODIUM (BEAKER) (test 145 meq/L 136-145 jinc=648) POTASSIUM (BEAKER) (test 3.7 meq/L 3.5-5.1 nmhr=483) CHLORIDE (BEAKER) (test 110 meq/L 98-107 bdvi=672) CO2 (BEAKER) (test 28 meq/L 22-29 dlrx=791) BLOOD UREA NITROGEN 11 mg/dL 7-21 (BEAKER) (test bhjy=270) CREATININE (BEAKER) (test 0.74 mg/dL 0.57-1.25 xyml=956) GLUCOSE RANDOM (BEAKER) 137 mg/dL 70-105 (test wlwx=233) CALCIUM (BEAKER) (test 8.2 mg/dL 8.4-10.2 lvps=862) AST (SGOT) (BEAKER) (test 8 U/L 5-34 xwjx=007) ALT (SGPT) (BEAKER) (test < U/L 6-55 uprr=041) EGFR (BEAKER) (test 76 mL/min/1.73 sq m ESTIMATED GFR IS NOT iuya=1673) ACCURATE CREATININE CLEARANCE IN PREDICTING GLOMERULAR FILTRATION RATE. ESTIMATED GFR IS NOT APPLICABLE FOR DIALYSIS PATIENTS. PROTHROMBIN [id number] 04:40:00 Test Item Value Reference Range Comments PROTIME (BEAKER) (test xvtp=542) 23.8 seconds 11.7-14.7 INR (BEAKER) (test tezl=338) 2.1 <=5.9 RECOMMENDED COUMADIN/WARFARIN INR THERAPY RANGESSTANDARD DOSE: 2.0 - 3.0 Includes: PROPHYLAXIS forvenous thrombosis, systemic embolization; TREATMENT for venous thrombosis and/or pulmonary embolus.HIGH RISK: Target INR is 2.5-3.5 for patients with mechanical heart valves.While on warfarin.[id number] 04:29:00 Test Item Value Reference Range Comments MAGNESIUM (BEAKER) (test jdtc=679) 2.0 mg/dL 1.6-2.6 CBC W/PLT COUNT & AUTO [id number] 04:11:00 Test Item Value Reference Range Comments WHITE BLOOD CELL COUNT (BEAKER) (test wuzq=952) 5.8 K/ L 3.5-10.5 RED BLOOD CELL COUNT (BEAKER) (test yvfe=925) 3.18 M/ L 3.93-5.22 HEMOGLOBIN (BEAKER) (test jwpn=690) 10.0 GM/DL 11.2-15.7 HEMATOCRIT (BEAKER) (test kqxl=722) 31.8 % 34.1-44.9 MEAN CORPUSCULAR VOLUME (BEAKER) (test lurw=434) 100.0 fL 79.4-94.8 MEAN CORPUSCULAR HEMOGLOBIN (BEAKER) (test 31.4 pg 25.6-32.2 jake=711) MEAN CORPUSCULAR HEMOGLOBIN CONC (BEAKER) (test 31.4 GM/DL 32.2-35.5 empo=208) RED CELL DISTRIBUTION WIDTH (BEAKER) (test 14.9 % 11.7-14.4 bzjx=822) PLATELET COUNT (BEAKER) (test vliw=560) 141 K/CU MM 150-450 MEAN PLATELET VOLUME (BEAKER) (test rfwt=865) 11.3 fL 9.4-12.3 NUCLEATED RED BLOOD CELLS (BEAKER) (test 0 /100 WBC 0-0 qqwq=923) NEUTROPHILS RELATIVE PERCENT (BEAKER) (test 71 % zuox=859) LYMPHOCYTES RELATIVE PERCENT (BEAKER) (test 23 % ueln=489) MONOCYTES RELATIVE PERCENT (BEAKER) (test 4 % qpax=348) EOSINOPHILS RELATIVE PERCENT (BEAKER) (test 0 % tykc=170) BASOPHILS RELATIVE PERCENT (BEAKER) (test 0 % zdlk=202) NEUTROPHILS ABSOLUTE COUNT (BEAKER) (test 4.14 K/ L 1.56-6.13 dtwb=937) LYMPHOCYTES ABSOLUTE COUNT (BEAKER) (test 1.34 K/ L 1.18-3.74 eayl=219) MONOCYTES ABSOLUTE COUNT (BEAKER) (test 0.23 K/ L 0.24-0.36 ztew=868) EOSINOPHILS ABSOLUTE COUNT (BEAKER) (test 0.02 K/ L 0.04-0.36 lmvy=713) BASOPHILS ABSOLUTE COUNT (BEAKER) (test 0.02 K/ L 0.01-0.08 dttb=551) IMMATURE GRANULOCYTES-RELATIVE PERCENT (BEAKER) 1 % 0-1 (test hpdn=3585) POCT-GLUCOSE [id number] 22:19:00 Test Item Value Reference Range Comments POC-GLUCOSE METER (BEAKER) 266 mg/dL 70-110 TESTED AT [facility] [address] [facility] (test ujvu=3069) [facility] [address] [id number] 17:54:00 Test Item Value Reference Range Comments POTASSIUM (BEAKER) (test wlhn=200) 4.2 meq/L 3.5-5.1 [id number] 17:23:00 Test Item Value Reference Range Comments MAGNESIUM (BEAKER) (test oxfh=161) 1.7 mg/dL 1.6-2.6 POCT-GLUCOSE [id number] 12:41:00 Test Item Value Reference Range Comments POC-GLUCOSE METER (BEAKER) 111 mg/dL 70-110 TESTED AT [address] (test ttvp=0012) [place] [id number] 12:40:00 Test Item Value Reference Range Comments POTASSIUM (BEAKER) (test somj=385) 3.5 meq/L 3.5-5.1 POCT-GLUCOSE [id number] 10:05:00 Test Item Value Reference Range Comments POC-GLUCOSE METER (BEAKER) 94 mg/dL 70-110 TESTED AT [address] (test fbpi=9316) [place] [id number] COMPREHENSIVE METABOLIC [id number] 05:47:00 Test Item Value Reference Range Comments TOTAL PROTEIN (BEAKER) 4.7 gm/dL 6.0-8.3 (test yqlm=184) ALBUMIN (BEAKER) (test 2.7 g/dL 3.5-5.0 wacm=6196) ALKALINE PHOSPHATASE 31 U/L 40-150 (BEAKER) (test etpz=906) BILIRUBIN TOTAL (BEAKER) 0.5 mg/dL 0.2-1.2 (test jnzf=357) SODIUM (BEAKER) (test 147 meq/L 136-145 rscr=412) POTASSIUM (BEAKER) (test 2.9 meq/L 3.5-5.1 usez=692) CHLORIDE (BEAKER) (test 110 meq/L 98-107 zbuj=667) CO2 (BEAKER) (test 27 meq/L 22-29 obeb=021) BLOOD UREA NITROGEN 10 mg/dL 7-21 (BEAKER) (test trbz=440) CREATININE (BEAKER) (test 0.70 mg/dL 0.57-1.25 fdfx=343) GLUCOSE RANDOM (BEAKER) 86 mg/dL 70-105 (test ddou=711) CALCIUM (BEAKER) (test 7.9 mg/dL 8.4-10.2 mlgj=498) AST (SGOT) (BEAKER) (test 9 U/L 5-34 sosq=585) ALT (SGPT) (BEAKER) (test < U/L 6-55 blsm=579) EGFR (BEAKER) (test 81 mL/min/1.73 sq m ESTIMATED GFR IS NOT dqgr=0188) ACCURATE CREATININE CLEARANCE IN PREDICTING GLOMERULAR FILTRATION RATE. ESTIMATED GFR IS NOT APPLICABLE FOR DIALYSIS PATIENTS. [id number] 05:44:00 Test Item Value Reference Range Comments MAGNESIUM (BEAKER) (test ekco=131) 2.0 mg/dL 1.6-2.6 PROTHROMBIN [id number] 05:37:00 Test Item Value Reference Range Comments PROTIME (BEAKER) (test oqir=601) 24.0 seconds 11.7-14.7 INR (BEAKER) (test lbax=983) 2.2 <=5.9 RECOMMENDED COUMADIN/WARFARIN INR THERAPY RANGESSTANDARD DOSE: 2.0 - 3.0 Includes: PROPHYLAXIS forvenous thrombosis, systemic embolization; TREATMENT for venous thrombosis and/or pulmonary embolus.HIGH RISK: Target INR is 2.5-3.5 for patients with mechanical heart valves.PROTHROMBIN [id number] 05:36: 00 Test Item Value Reference Range Comments PROTIME (BEAKER) (test pdlr=447) 24.2 seconds 11.7-14.7 INR (BEAKER) (test lbmj=598) 2.2 <=5.9 RECOMMENDED COUMADIN/WARFARIN INR THERAPY RANGESSTANDARD DOSE: 2.0 - 3.0 Includes: PROPHYLAXIS forvenous thrombosis, systemic embolization; TREATMENT for venous thrombosis and/or pulmonary embolus.HIGH RISK: Target INR is 2.5-3.5 for patients with mechanical heart valves.While on warfarin.CBC W/PLT COUNT &amp ; AUTO [id number] 05:35:00 Test Item Value Reference Range Comments WHITE BLOOD CELL COUNT (BEAKER) (test uzwi=253) 4.3 K/ L 3.5-10.5 RED BLOOD CELL COUNT (BEAKER) (test jfzo=344) 3.29 M/ L 3.93-5.22 HEMOGLOBIN (BEAKER) (test brex=476) 10.3 GM/DL 11.2-15.7 HEMATOCRIT (BEAKER) (test lcaq=094) 33.2 % 34.1-44.9 MEAN CORPUSCULAR VOLUME (BEAKER) (test hrje=778) 100.9 fL 79.4-94.8 MEAN CORPUSCULAR HEMOGLOBIN (BEAKER) (test 31.3 pg 25.6-32.2 lbab=591) MEAN CORPUSCULAR HEMOGLOBIN CONC (BEAKER) (test 31.0 GM/DL 32.2-35.5 cnoo=843) RED CELL DISTRIBUTION WIDTH (BEAKER) (test 14.9 % 11.7-14.4 bnmz=576) PLATELET COUNT (BEAKER) (test lglh=698) 138 K/CU MM 150-450 MEAN PLATELET VOLUME (BEAKER) (test gqss=963) 11.5 fL 9.4-12.3 NUCLEATED RED BLOOD CELLS (BEAKER) (test 0 /100 WBC 0-0 fdjj=568) NEUTROPHILS RELATIVE PERCENT (BEAKER) (test 66 % wcgo=949) LYMPHOCYTES RELATIVE PERCENT (BEAKER) (test 27 % rtqq=363) MONOCYTES RELATIVE PERCENT (BEAKER) (test 4 % wttl=344) EOSINOPHILS RELATIVE PERCENT (BEAKER) (test 1 % jrdr=597) BASOPHILS RELATIVE PERCENT (BEAKER) (test 0 % lcob=858) NEUTROPHILS ABSOLUTE COUNT (BEAKER) (test 2.82 K/ L 1.56-6.13 psrc=996) LYMPHOCYTES ABSOLUTE COUNT (BEAKER) (test 1.16 K/ L 1.18-3.74 zpuk=520) MONOCYTES ABSOLUTE COUNT (BEAKER) (test 0.18 K/ L 0.24-0.36 npsq=250) EOSINOPHILS ABSOLUTE COUNT (BEAKER) (test 0.06 K/ L 0.04-0.36 wcpc=217) BASOPHILS ABSOLUTE COUNT (BEAKER) (test 0.01 K/ L 0.01-0.08 zuau=160) IMMATURE GRANULOCYTES-RELATIVE PERCENT (BEAKER) 1 % 0-1 (test qkii=2964) POCT-GLUCOSE [id number] 23:56:00 Test Item Value Reference Range Comments POC-GLUCOSE METER (BEAKER) 105 mg/dL 70-110 TESTED AT [facility] [address] (test zijq=4445) [facility] [id number] TROPONIN [id number] 13:02:00 Test Item Value Reference Range Comments TROPONIN I (BEAKER) (test iest=055) 0.02 ng/mL 0.00-0.03 Troponin I (TnI) levels [...] NATRIURETIC PEPTIDE (BEAKER) (test 975 pg/mL 0-100 ythq=333) POCT-GLUCOSE [id number] 12:18:00 Test Item Value Reference Range Comments POC-GLUCOSE METER (BEAKER) 175 mg/dL 70-110 TESTED AT [facility] [address] [facility] (test mlbj=6743) [facility] [address] U/S, ABDOMINAL, [id number] 10:23:00Abdomen limited area? Add comment if clarification [...] MDReport Verified Date/Time: 01/14/2018 10:23:02 Reading Location: [address] Ortho Consult Reading Room T4, [id number] 08:42 :00 Test Item Value Reference Range Comments FREE T4 (BEAKER) (test xfms=166) 0.83 ng/dL 0.70-1.48 POCT-GLUCOSE [id number] 08:37:00 Test Item Value Reference Range Comments POC-GLUCOSE METER (BEAKER) 161 mg/dL 70-110 TESTED AT [facility] [address] [facility] (test yjql=2885) [facility] [id number] TSH/FREE T4 IF [id number] 08:05:00 Test Item Value Reference Range Comments THYROID STIMULATING HORMONE (BEAKER) (test 0.02 uIU/mL 0.35-4.94 fzqr=078) VITAMIN B12 AND [id number] 07:42:00 Test Item Value Reference Range Comments VITAMIN B12 (BEAKER) (test rehi=679) 1276 pg/mL 213-816 FOLATE (BEAKER) (test dznv=956) 8.8 ng/mL >=7.0 LIPID [id number] 07:14:00 Test Item Value Reference Range Comments TRIGLYCERIDES (BEAKER) (test llok=224) 171 mg/dL CHOLESTEROL (BEAKER) (test gusd=336) 123 mg/dL HDL CHOLESTEROL (BEAKER) (test mesl=980) 25 mg/dL LDL CHOLESTEROL CALCULATED (BEAKER) (test 64 mg/dL tzrc=923) Triglyceride Reference Range: Low Risk <150 Borderline 150- 199 High Risk 200-499 Very High Risk >=500Cholesterol Reference Range: Low Risk <200 Borderline 200-239 High Risk > 240HDL Cholesterol Reference Range: Low Risk >=60 High Risk <40LDL Cholesterol Reference Range: Optimal <100 Near Optimal 100-129 Borderline 130-159 High 160-189 Very High >=190TROPONIN [id number] 07:12:00 Test Item Value Reference Range Comments TROPONIN I (BEAKER) (test vnqf=282) 0.03 ng/mL 0.00-0.03 Troponin I (TnI) levels [...] acute neurological disease, and persistent tachyarrhythmia.URINALYSIS W/ [id number] 06: 35:00 Test Item Value Reference Range Comments COLOR (BEAKER) (test aacc=369) Yellow CLARITY (BEAKER) (test bvho=331) Clear SPECIFIC GRAVITY UA (BEAKER) (test vmor=008) 1.043 1.001-1.035 PH UA (BEAKER) (test mpuo=569) 6.5 5.0-8.0 PROTEIN UA (BEAKER) (test gwbi=278) 20 mg/dL Negative GLUCOSE UA (BEAKER) (test gyqd=400) 1000 mg/dL Negative KETONES UA (BEAKER) (test cxor=961) Negative Negative BILIRUBIN UA (BEAKER) (test hkfv=159) Negative Negative BLOOD UA (BEAKER) (test oiyn=947) Trace Negative NITRITE UA (BEAKER) (test cozl=614) Negative Negative LEUKOCYTE ESTERASE UA (BEAKER) (test ehkk=850) Negative Negative UROBILINOGEN UA (BEAKER) (test rtql=169) 0.2 mg/dL 0.2-1.0 RBC UA (BEAKER) (test jqld=748) 1 /HPF WBC UA (BEAKER) (test qjdz=790) 3 /HPF BACTERIA (BEAKER) (test inve=811) Rare SOURCE(BEAKER) (test uthe=6066) Urine, Taylor [id number] 06:07:00 Test Item Value Reference Range Comments MAGNESIUM (BEAKER) (test xkzg=048) 1.8 mg/dL 1.6-2.6 [id number] 05:32:00 Test Item Value Reference Range Comments MAGNESIUM (BEAKER) (test zwbz=221) 2.5 mg/dL 1.6-2.6 COMPREHENSIVE METABOLIC [id number] 05:32:00 Test Item Value Reference Range Comments TOTAL PROTEIN (BEAKER) 5.1 gm/dL 6.0-8.3 (test utip=217) ALBUMIN (BEAKER) (test 2.9 g/dL 3.5-5.0 lkxo=0919) ALKALINE PHOSPHATASE 31 U/L 40-150 (BEAKER) (test kjip=464) BILIRUBIN TOTAL (BEAKER) 0.4 mg/dL 0.2-1.2 (test wkqg=435) SODIUM (BEAKER) (test 145 meq/L 136-145 spuf=798) POTASSIUM (BEAKER) (test 4.0 meq/L 3.5-5.1 qqol=602) CHLORIDE (BEAKER) (test 110 meq/L 98-107 jvvu=952) CO2 (BEAKER) (test 28 meq/L 22-29 frss=301) BLOOD UREA NITROGEN 14 mg/dL 7-21 (BEAKER) (test rpyt=328) CREATININE (BEAKER) (test 0.71 mg/dL 0.57-1.25 jaqa=598) GLUCOSE RANDOM (BEAKER) 187 mg/dL 70-105 (test exja=135) CALCIUM (BEAKER) (test 8.1 mg/dL 8.4-10.2 fxmi=496) AST (SGOT) (BEAKER) (test 9 U/L 5-34 bbgq=067) ALT (SGPT) (BEAKER) (test 6 U/L 6-55 khab=221) EGFR (BEAKER) (test 79 mL/min/1.73 sq m ESTIMATED GFR IS NOT ultg=1700) ACCURATE CREATININE CLEARANCE IN PREDICTING GLOMERULAR FILTRATION RATE. ESTIMATED GFR IS NOT APPLICABLE FOR DIALYSIS PATIENTS. PROTHROMBIN [id number] 05:10:00 Test Item Value Reference Range Comments PROTIME (BEAKER) (test zwvl=608) 25.1 seconds 11.7-14.7 INR (BEAKER) (test prvo=359) 2.3 <=5.9 RECOMMENDED COUMADIN/WARFARIN INR THERAPY RANGESSTANDARD DOSE: 2.0 - 3.0 Includes: PROPHYLAXIS forvenous thrombosis, systemic embolization; TREATMENT for venous thrombosis and/or pulmonary embolus.HIGH RISK: Target INR is 2.5-3.5 for patients with mechanical heart valves.CBC W/PLT COUNT & AUTO [id number] 05:03:00 Test Item Value Reference Range Comments WHITE BLOOD CELL COUNT (BEAKER) (test dehl=502) 5.6 K/ L 3.5-10.5 RED BLOOD CELL COUNT (BEAKER) (test lhur=615) 3.19 M/ L 3.93-5.22 HEMOGLOBIN (BEAKER) (test hlrz=039) 10.1 GM/DL 11.2-15.7 HEMATOCRIT (BEAKER) (test nlic=487) 31.5 % 34.1-44.9 MEAN CORPUSCULAR VOLUME (BEAKER) (test ytcv=542) 98.7 fL 79.4-94.8 MEAN CORPUSCULAR HEMOGLOBIN (BEAKER) (test 31.7 pg 25.6-32.2 ckko=841) MEAN CORPUSCULAR HEMOGLOBIN CONC (BEAKER) (test 32.1 GM/DL 32.2-35.5 zghf=885) RED CELL DISTRIBUTION WIDTH (BEAKER) (test 14.6 % 11.7-14.4 bifo=788) PLATELET COUNT (BEAKER) (test fsar=856) 141 K/CU MM 150-450 MEAN PLATELET VOLUME (BEAKER) (test sogs=973) 11.6 fL 9.4-12.3 NUCLEATED RED BLOOD CELLS (BEAKER) (test 0 /100 WBC 0-0 wsre=373) NEUTROPHILS RELATIVE PERCENT (BEAKER) (test 71 % qtws=355) LYMPHOCYTES RELATIVE PERCENT (BEAKER) (test 22 % ibxy=041) MONOCYTES RELATIVE PERCENT (BEAKER) (test 5 % uhna=330) EOSINOPHILS RELATIVE PERCENT (BEAKER) (test 0 % nbfk=206) BASOPHILS RELATIVE PERCENT (BEAKER) (test 0 % vnqr=782) NEUTROPHILS ABSOLUTE COUNT (BEAKER) (test 4.00 K/ L 1.56-6.13 ayqq=249) LYMPHOCYTES ABSOLUTE COUNT (BEAKER) (test 1.25 K/ L 1.18-3.74 nzkp=565) MONOCYTES ABSOLUTE COUNT (BEAKER) (test 0.26 K/ L 0.24-0.36 ofij=777) EOSINOPHILS ABSOLUTE COUNT (BEAKER) (test 0.02 K/ L 0.04-0.36 vlmg=244) BASOPHILS ABSOLUTE COUNT (BEAKER) (test 0.01 K/ L 0.01-0.08 kkee=659) IMMATURE GRANULOCYTES-RELATIVE PERCENT (BEAKER) 1 % 0-1 (test zmak=6490) [id number] 02:52:00 Test Item Value Reference Range Comments PROCALCITONIN (BEAKER) (test gxbs=3614) 0.41 ng/mL <0.05 SEPSIS RISK (ng/mL)Low: 0.05-0.50Intermediate: 0.51-2.00High: & gt;=2.01LACTIC ACID, VENOUS, WHOLE [id number] 02:06:00 Test Item Value Reference Range Comments LACTATE BLOOD VENOUS (2) 1.3 mmol/L 0.5-2.2 Specimen slightly hemolyzed (BEAKER) (test yqfm=3706) Effective 01/07/2016: Units/Reference Range ChangeNew: 0.5-2.2 mmol/L Previous: 5 -20 mg/dLCOMPREHENSIVE METABOLIC [id number] 02:06:00 Test Item Value Reference Range Comments TOTAL PROTEIN (BEAKER) 5.2 gm/dL 6.0-8.3 (test jozj=724) ALBUMIN (BEAKER) (test 3.0 g/dL 3.5-5.0 qqnn=9610) ALKALINE PHOSPHATASE 31 U/L 40-150 (BEAKER) (test lykh=170) BILIRUBIN TOTAL (BEAKER) 0.4 mg/dL 0.2-1.2 (test rzvz=397) SODIUM (BEAKER) (test 143 meq/L 136-145 abir=353) POTASSIUM (BEAKER) (test 2.9 meq/L 3.5-5.1 uprl=364) CHLORIDE (BEAKER) (test 109 meq/L 98-107 vzll=045) CO2 (BEAKER) (test 27 meq/L 22-29 mzwo=426) BLOOD UREA NITROGEN 15 mg/dL 7-21 (BEAKER) (test jwqc=523) CREATININE (BEAKER) (test 0.70 mg/dL 0.57-1.25 nkgh=309) GLUCOSE RANDOM (BEAKER) 215 mg/dL 70-105 (test ralk=578) CALCIUM (BEAKER) (test 7.9 mg/dL 8.4-10.2 uwsn=631) AST (SGOT) (BEAKER) (test 10 U/L 5-34 yhsf=041) ALT (SGPT) (BEAKER) (test 7 U/L 6-55 nidv=863) EGFR (BEAKER) (test 81 mL/min/1.73 sq m ESTIMATED GFR IS NOT wkma=8935) ACCURATE CREATININE CLEARANCE IN PREDICTING GLOMERULAR FILTRATION RATE. ESTIMATED GFR IS NOT APPLICABLE FOR DIALYSIS PATIENTS. [id number] 02:04:00 Test Item Value Reference Range Comments LIPASE (BEAKER) (test anso=246) 730 U/L 8-78 [id number] 02:04:00 Test Item Value Reference Range Comments AMYLASE (BEAKER) (test loum=531) 226 U/L 25-125 PROTHROMBIN [id number] 01:45:00 Test Item Value Reference Range Comments PROTIME (BEAKER) (test dnmv=908) 23.9 seconds 11.7-14.7 INR (BEAKER) (test zcdx=476) 2.1 <=5.9 RECOMMENDED COUMADIN/WARFARIN INR THERAPY RANGESSTANDARD DOSE: 2.0 - 3.0 Includes: PROPHYLAXIS forvenous thrombosis, systemic embolization; TREATMENT for venous thrombosis and/or pulmonary embolus.HIGH RISK: Target INR is 2.5-3.5 for patients with mechanical heart valves.[id number] 01:45:00 Test Item Value Reference Range Comments PARTIAL THROMBOPLASTIN TIME (BEAKER) (test 32.4 seconds 22.5-36.0 tqak=581) CBC W/PLT COUNT & AUTO [id number] 01:38:00 Test Item Value Reference Range Comments WHITE BLOOD CELL COUNT (BEAKER) (test extm=651) 4.9 K/ L 3.5-10.5 RED BLOOD CELL COUNT (BEAKER) (test hwwm=913) 3.21 M/ L 3.93-5.22 HEMOGLOBIN (BEAKER) (test srfx=471) 10.2 GM/DL 11.2-15.7 HEMATOCRIT (BEAKER) (test meep=237) 31.6 % 34.1-44.9 MEAN CORPUSCULAR VOLUME (BEAKER) (test majt=411) 98.4 fL 79.4-94.8 MEAN CORPUSCULAR HEMOGLOBIN (BEAKER) (test 31.8 pg 25.6-32.2 xwdy=409) MEAN CORPUSCULAR HEMOGLOBIN CONC (BEAKER) (test 32.3 GM/DL 32.2-35.5 cqzw=034) RED CELL DISTRIBUTION WIDTH (BEAKER) (test 14.4 % 11.7-14.4 oyja=888) PLATELET COUNT (BEAKER) (test zibo=211) 137 K/CU MM 150-450 MEAN PLATELET VOLUME (BEAKER) (test jydg=547) 11.9 fL 9.4-12.3 NUCLEATED RED BLOOD CELLS (BEAKER) (test 0 /100 WBC 0-0 nxpg=908) NEUTROPHILS RELATIVE PERCENT (BEAKER) (test 76 % matk=816) LYMPHOCYTES RELATIVE PERCENT (BEAKER) (test 19 % nlzh=598) MONOCYTES RELATIVE PERCENT (BEAKER) (test 4 % ueku=320) EOSINOPHILS RELATIVE PERCENT (BEAKER) (test 0 % npbk=494) BASOPHILS RELATIVE PERCENT (BEAKER) (test 0 % nemi=651) NEUTROPHILS ABSOLUTE COUNT (BEAKER) (test 3.73 K/ L 1.56-6.13 mnso=835) LYMPHOCYTES ABSOLUTE COUNT (BEAKER) (test 0.92 K/ L 1.18-3.74 atgo=889) MONOCYTES ABSOLUTE COUNT (BEAKER) (test 0.21 K/ L 0.24-0.36 oorw=173) EOSINOPHILS ABSOLUTE COUNT (BEAKER) (test 0.00 K/ L 0.04-0.36 vgac=241) BASOPHILS ABSOLUTE COUNT (BEAKER) (test 0.01 K/ L 0.01-0.08 jjnl=590) IMMATURE GRANULOCYTES-RELATIVE PERCENT (BEAKER) 1 % 0-1 (test xaeh=5169)
[2018-10-06 12:29] LABS: Absolute Lymphocytes (CBC) 1.9 K/uL (0.7-4.9); Absolute Monocytes 0.5 K/uL (0.1-1.3); Absolute Neutrophil 4.1 K/uL (1.8-8.0); Basophils % 0.4 % (0-1.3); Eosinophils % 1.4 % (0-4.4); Hematocrit 38.2 % (36.0-45.0); Lymphocytes % 29.1 % (15.3-44.8); MPV 9.6 fL (7.6-11.3); Monocytes % 7.2 % (3.3-12.3); RBC Red Blood Cell Count 4.21 M/uL (3.86-4.86)
[2018-10-06 12:37] LABS: Protime INR 1.7
[2018-10-06 12:56] LABS: ALT/SGPT 21 U/L (12-78); AST/SGOT 18 U/L (15-37); Albumin 3.4 g/dL (3.4-5.0); Alkaline Phosphatase 60 U/L (45-117); BUN Blood Urea Nitrogen 23 mg/dL (7-18); Bicarbonate 27 mmol/L (21-32); Bilirubin Direct 0.1 mg/dL (0-0.2); Bilirubin Total 0.5 mg/dL (0.2-1.0); Glucose Level 87 mg/dL (74-106); Magnesium 1.5 mg/dL (1.8-2.4); NT PRO-BNP 634 pg/mL (<450); Protein, Total 6.4 g/dL (6.4-8.2); Sodium Level 147 mmol/L (136-145); Troponin (Emerg Dept Use Only) < 0.02 ng/mL (0.0-0.045)
[2018-10-06 12:59] LABS: Potassium 2.9 mmol/L (3.5-5.1)
--- NOTE | 2018-10-06 13:03 | RAD REPORT ---
EXAM DESCRIPTION: RAD - Chest Single View - 10/06/2018 12:56 pm CLINICAL HISTORY: CHEST PAIN Chest pain. COMPARISON: Chest Single View dated 09/27/2018; Chest Single View dated 09/10/2018; Chest Single View d ated 01/13/2018; Chest Single View dated 01/11/2018 FINDINGS: Portable technique limits examination quality. Small calcified granulomas present right upper lobe. The lungs are clear of acute infiltrate. The hea rt is normal in size. No displaced fractures. IMPRESSION: No acute intrathoracic process suspected.
[2018-10-06] MEDS ORDERED: POTASSIUM CL SA 10 MEQ TAB PO ONE ×2 (13:33→18:21)
[2018-10-06] MEDS ORDERED: Magnesium Sulfate 2gm IVPB 2 G/50 ML BAG IV ONE (13:34)
--- NOTE | 2018-10-06 14:11 | EDPHYS ---
Physician Documentation [facility] Name: Emelia Payna Age: 78 yrs Sex: Female : 1940 Arrival Date: 10/06/2018 Time: 11:59 Bed 8 Private MD: ED Physician Michael Tellez HPI: 10/06 14:08 This 78 yrs old Female presents to ER via EMS with complaints of Chest Pain. kb 14:08 The patient or guardian reports chest pain that is located primarily in the anterior kb chest wall, left. Onset: this morning, at 05:00. The pain does not radiate. Associated signs and symptoms: Pertinent positives: nausea, shortness of breath. The chest pain is described as a heaviness. Duration: The patient or guardian reports a single episode, that is still ongoing, but improving. Modifying factors: The symptoms are alleviated by nothing. the symptoms are aggravated by nothing. Severity of pain: At its worst the pain was moderate in the emergency department the pain is unchanged. EMS care prior to arrival includes: aspirin. The patient has not experienced similar symptoms in the past. The patient has not recently seen a physician. Historical: - Allergies: 12:03 Cipro; bp 12:03 Xarelto; bp - Home Meds: 14:31 hydrocortisone 10 mg Oral tab 2 tabs twice a day [Active]; Omnitrope subcutaneous once bp daily [Active]; cholecalciferol (vitamin D3) 5,000 unit Oral cap daily [Active]; levothyroxine 112 mcg tab 1 tab once daily [Active]; glipizide 2.5 mg Oral tr24 one tab M, W, F [Active]; liothyronine 5 mcg Oral tab 1 tab once daily [Active]; amlodipine 5 mg tab 1 tab once daily [Active]; warfarin 3 mg Oral tab 1 tab once daily [Active]; sotalol 160 mg Oral tab 1 tab 2 times per day [Active]; lorazepam 0.5 mg Oral tab 1 tab BID PRN for Anxiety [Active]; fenofibrate 48 mg Oral 1 tab once daily [Active]; losartan 100 mg Oral tab 1 tab once daily [Active]; Creon Oral 1 cap [Active]; omeprazole 40 mg Oral cpDR 1 cap once daily [Active]; Dexilant 60 mg Oral CpDB 1 cap once daily [Active]; - PMHx: 12:03 adrenal insuficiency; Anxiety; Pancreatitis; Diabetes - IDDM; CHF; Hyperlipidemia; bp Hypertension; DVT; Hypothyroidism; Atrial Fib; - Immunization history:: Adult Immunizations up to date. - Social history:: Smoking status: . - Ebola Screening: : Patient negative for fever greater than or equal to 101.5 degrees Fahrenheit, and additional compatible Ebola Virus Disease symptoms Patient denies exposure to infectious person Patient denies travel to an Ebola-affected area in the 21 days before illness onset No symptoms or risks identified at this time. ROS: 14:08 Constitutional: Negative for fever, chills, and weight loss, ENT: Negative for injury, kb pain, and discharge, Neck: Negative for injury, pain, and swelling, Back: Negative for injury and pain, : Negative for injury, bleeding, discharge, and swelling, MS/Extremity: Negative for injury and deformity, Skin: Negative for injury, rash, and discoloration, Neuro: Negative for headache, weakness, numbness, tingling, and seizure. 14:08 Cardiovascular: Positive for chest pain, Negative for edema, orthopnea, palpitations, paroxysmal nocturnal dyspnea. 14:08 Respiratory: Positive for shortness of breath, Negative for cough, dyspnea on exertion, hemoptysis, orthopnea, pleurisy, sputum production, wheezing. 14:08 Abdomen/GI: Positive for nausea, Negative for abdominal pain, vomiting, diarrhea, constipation, abdominal cramps, abdominal distension, anorexia, dysphagia. Exam: 14:08 Constitutional: This is a well developed, well nourished patient who is awake, alert, kb and in no acute distress. Head/Face: Normocephalic, atraumatic. ENT: Nares patent. No nasal discharge, no septal abnormalities noted. Tympanic membranes are normal and external auditory canals are clear. Oropharynx with no redness, swelling, or masses, exudates, or evidence of obstruction, uvula midline. Mucous membranes moist. Neck: Trachea midline, no thyromegaly or masses palpated, and no cervical lymphadenopathy. Supple, full range of motion without nuchal rigidity, or vertebral point tenderness. No Meningismus. Chest/axilla: Normal chest wall appearance and motion. Nontender with no deformity. No lesions are appreciated. Cardiovascular: Regular rate and rhythm with a normal S1 and S2. No gallops, murmurs, or rubs. Normal PMI, no JVD. No pulse deficits. Respiratory: Lungs have equal breath sounds bilaterally, clear to auscultation and percussion. No rales, rhonchi or wheezes noted. No increased work of breathing, no retractions or nasal flaring. Abdomen/GI: Soft, non-tender, with normal bowel sounds. No distension or tympany. No guarding or rebound. No evidence of tenderness throughout. Skin: Warm, dry with normal turgor. Normal color with no rashes, no lesions, and no evidence of cellulitis. MS/ Extremity: Pulses equal, no cyanosis. Neurovascular intact. Full, normal range of motion. Neuro: Awake and alert, GCS 15, oriented to person, place, time, and situation. Cranial nerves II-XII grossly intact. Motor strength 5/5 in all extremities. Sensory grossly intact. Cerebellar exam normal. Normal gait. Vital Signs: 12:03 BP 149 / 76; Pulse 67; Resp 16; Temp 98.7; Pulse Ox 98% ; Weight 74.39 kg; Height 5 ft. bp 4 in. (162.56 cm); 13:04 BP 142 / 64; Pulse 64; Resp 16; Pulse Ox 98% ; ms 12:03 Body Mass Index 28.15 (74.39 kg, 162.56 cm) bp MDM: 12:06 Patient medically screened. kb 14:07 Data reviewed: vital signs, nurses notes. Data interpreted: Pulse oximetry: on room air kb is 98 %. Interpretation: normal. Counseling: I had a detailed discussion with the patient and/or guardian regarding: the historical points, exam findings, and any diagnostic results supporting the discharge/admit diagnosis, lab results, radiology results, the need for further work-up and treatment in the hospital. Physician consultation: Anisa Menon MD was contacted at 14:07, regarding admission, to the telemetry unit. patient's condition, and will see patient in ED, shortly. 14:09 The patient was not given aspirin in the Emergency Department. Administered by EMS. kb 10/06 12:06 Order name: Basic Metabolic Panel; Complete Time: 13:15 kb 10/06 12:06 Order name: CBC with Diff; Complete Time: 12:42 kb 10/06 12:06 Order name: LFT's; Complete Time: 13:15 kb 10/06 12:06 Order name: Magnesium; Complete Time: 13:15 kb 10/06 12:06 Order name: NT PRO-BNP; Complete Time: 13:15 kb 10/06 12:06 Order name: PT-INR; Complete Time: 12:42 kb 10/06 12:06 Order name: Troponin (emerg Dept Use Only); Complete Time: 13:15 kb 10/06 12:06 Order name: XRAY Chest (1 view); Complete Time: 13:15 kb 10/06 12:06 Order name: EKG; Complete Time: 12:08 kb 10/06 14:07 Order name: Echo without doppler (2D) kb 10/06 14:07 Order name: TSH; Complete Time: 14:40 eb 10/06 14:07 Order name: T4 Free; Complete Time: 14:40 eb 10/06 12:06 Order name: Cardiac monitoring; Complete Time: 12:12 kb 10/06 12:06 Order name: EKG - Nurse/Tech; Complete Time: 12:23 kb 10/06 12:06 Order name: IV Saline Lock; Complete Time: 12:29 kb 10/06 12:06 Order name: Labs collected and sent; Complete Time: 12:29 kb 10/06 12:06 Order name: O2 Per Protocol; Complete Time: 12:23 kb 10/06 12:06 Order name: O2 Sat Monitoring; Complete Time: 12:23 kb Administered Medications: 13:20 Drug: Magnesium Sulfate 2 grams Route: IVPB; Infused Over: 2 hrs; Site: right bp antecubital; 13:20 Drug: Potassium Chloride 40 mEq Route: PO; bp 14:01 Follow up: Response: No adverse reaction bp Disposition: 10/06/18 14:10 Hospitalization ordered by Anisa Menon for Observation. Preliminary diagnosis are Chest pain, unspecified, Hypomagnesemia, Hypokalemia. - Bed requested for Telemetry/MedSurg (observation). - Status is Observation. bp - Condition is Stable. - Problem is new. - Symptoms have improved. UTI on Admission? No Addendum: 10/09/2018 07:01 Co-signature as Attending Physician, Michael Tellez MD I agree with the assessment and k dr plan of care. Signatures: Dispatcher [employer] EDAdia Milan FNP-C FNP-CkAilyn Busch, RN RN dw Michael Tellez MD MD kdr Bartolo Hays, RN RN bp Corrections: (The following items were deleted from the chart) 10/06 14:09 14:09 The patient was given aspirin in the Emergency Department. kb kb 16:06 14:10 Hospitalization Ordered by Anisa Menon MD for Observation. Preliminary dw diagnosis is Chest pain, unspecified; Hypomagnesemia; Hypokalemia. Bed requested for Telemetry/MedSurg (observation). Status is Observation. Condition is Stable. Problem is new. Symptoms have improved. UTI on Admission? No. kb 16:49 16:06 10/06/2018 14:10 Hospitalization Ordered by Anisa Menon MD for Observation. bp Preliminary diagnosis is Chest pain, unspecified; Hypomagnesemia; Hypokalemia. Bed requested for Telemetry/MedSurg (observation). Status is Observation. Condition is Stable. Problem is new. Symptoms have improved. UTI on Admission? No. dw
--- NOTE | 2018-10-06 14:11 | ER ---
Nurse's Notes [facility] Name: Emelia Payan Age: 78 yrs Sex: Female : 1940 Arrival Date: 10/06/2018 Time: 11:59 Bed 8 Private MD: Diagnosis: Chest pain, unspecified;Hypomagnesemia;Hypokalemia Presentation: 10/06 12:00 Presenting complaint: EMS states: INITIAL CC ANXIETY, NOW C/O CHEST PAIN. Transition of bp care: patient was not received from another setting of care. Onset of symptoms is unknown. Risk Assessment: Do you want to hurt yourself or someone else? Patient reports no desire to harm self or others. Initial Sepsis Screen: Does the patient meet any 2 criteria? No. Patient's initial sepsis screen is negative. Does the patient have a suspected source of infection? No. Patient's initial sepsis screen is negative. Care prior to arrival: Medication(s) given: ASA, 81 mg, x 4, Glucose check: 93. 12:00 Method Of Arrival: EMS: [facility] bp 12:00 Acuity: EDIS 2 bp Triage Assessment: 12:00 General: Appears in no apparent distress. comfortable, obese, Behavior is cooperative, bp appropriate for age, anxious. Pain: Complains of pain in chest. Historical: - Allergies: 12:03 Cipro; bp 12:03 Xarelto; bp - Home Meds: 14:31 hydrocortisone 10 mg Oral tab 2 tabs twice a day [Active]; Omnitrope subcutaneous once bp daily [Active]; cholecalciferol (vitamin D3) 5,000 unit Oral cap daily [Active]; levothyroxine 112 mcg tab 1 tab once daily [Active]; glipizide 2.5 mg Oral tr24 one tab M, W, F [Active]; liothyronine 5 mcg Oral tab 1 tab once daily [Active]; amlodipine 5 mg tab 1 tab once daily [Active]; warfarin 3 mg Oral tab 1 tab once daily [Active]; sotalol 160 mg Oral tab 1 tab 2 times per day [Active]; lorazepam 0.5 mg Oral tab 1 tab BID PRN for Anxiety [Active]; fenofibrate 48 mg Oral 1 tab once daily [Active]; losartan 100 mg Oral tab 1 tab once daily [Active]; Creon Oral 1 cap [Active]; omeprazole 40 mg Oral cpDR 1 cap once daily [Active]; Dexilant 60 mg Oral CpDB 1 cap once daily [Active]; - PMHx: 12:03 adrenal insuficiency; Anxiety; Pancreatitis; Diabetes - IDDM; CHF; Hyperlipidemia; bp Hypertension; DVT; Hypothyroidism; Atrial Fib; - Immunization history:: Adult Immunizations up to date. - Social history:: Smoking status: . - Ebola Screening: : Patient negative for fever greater than or equal to 101.5 degrees Fahrenheit, and additional compatible Ebola Virus Disease symptoms Patient denies exposure to infectious person Patient denies travel to an Ebola-affected area in the 21 days before illness onset No symptoms or risks identified at this time. Screenin:20 Abuse screen: Denies threats or abuse. Denies injuries from another. Nutritional bp screening: No deficits noted. Tuberculosis screening: No symptoms or risk factors identified. Fall Risk None identified. Assessment: 12:05 General: Appears in no apparent distress. comfortable, Behavior is cooperative, bp appropriate for age, anxious. Pain: Complains of pain in chest Pain does not radiate. Pain began 30 min ago. Neuro: Level of Consciousness is awake, alert, obeys commands, Oriented to person, place, time, situation, Appropriate for age. Cardiovascular: Rhythm is sinus arrythmia. Respiratory: Airway is patent Respiratory effort is even, unlabored, Respiratory pattern is regular, symmetrical. GI: No signs and/or symptoms were reported involving the gastrointestinal system. : No signs and/or symptoms were reported regarding the genitourinary system. EENT: No deficits noted. Derm: No deficits noted. Musculoskeletal: Circulation, motion, and sensation intact. Range of motion: intact in all extremities. Vital Signs: 12:03 BP 149 / 76; Pulse 67; Resp 16; Temp 98.7; Pulse Ox 98% ; Weight 74.39 kg; Height 5 ft. bp 4 in. (162.56 cm); 13:04 BP 142 / 64; Pulse 64; Resp 16; Pulse Ox 98% ; ms 12:03 Body Mass Index 28.15 (74.39 kg, 162.56 cm) bp ED Course: 11:59 Patient arrived in ED. bp 12:01 Triage completed. bp 12:03 Arm band placed on. bp 12:06 Adia Ron FNP-C is PHCP. kb 12:06 Rittger, Michael, MD is Attending Physician. kb 12:22 Bartolo Hays, RN is Primary Nurse. bp 12:31 EKG done, by ekg monitor tech. reviewed by Adia MATA. dt2 12:48 X-ray completed. Portable x-ray completed in exam room. Patient tolerated procedure mh1 well. 12:48 XRAY Chest (1 view) In Process Unspecified. EDMS 13:20 Patient has correct armband on for positive identification. Bed in low position. Call bp light in reach. Side rails up X2. potline monitor on. Pulse ox on. NIBP on. 14:09 Jabari Menon DO is Hospitalizing Provider. kb 14:10 Hospitalizing Provider role handed off by Jabari Menon DO kb 14:10 Anisa Menon MD is Hospitalizing Provider. kb 16:19 Warm blanket given. sg 16:28 No provider procedures requiring assistance completed. Patient admitted, IV remains in bp place. Patient maintains SpO2 saturation greater than 95% on room air. Administered Medications: 13:20 Drug: Magnesium Sulfate 2 grams Route: IVPB; Infused Over: 2 hrs; Site: right bp antecubital; 13:20 Drug: Potassium Chloride 40 mEq Route: PO; bp 14:01 Follow up: Response: No adverse reaction bp Outcome: 14:10 Decision to Hospitalize by Provider. kb 16:29 Admitted to Tele accompanied by tech, family with patient, with chart, Report called to bp MARYANN DONALD 16:29 Condition: stable 16:29 Instructed on the need for admit. 16:49 Patient left the ED. bp Signatures: Dispatcher [employer] EDMS Adia Rno FNP-C FNP-Ckb Gay, Steven, RN RN sg Uzma Tenorio 1 Dottie Bee ms Bartolo Hays, RN RN Toya Meehan dt2
[2018-10-06 14:38] LABS: Thyroid Stimulating Hormone < 0.005 uIU/mL (0.360-3.740)
--- NOTE | 2018-10-06 16:01 | ECHO ---
HEIGHT: ft in WEIGHT: lb oz DATE OF STUDY: 10/06/[address]: Adia Ron 2-DIMENSIONAL: YES M.MODE: YES DOPPLER: YES COLOR FLOW: YES TDS: YES PORTABLE: YES DEFINITY: NO BUBBLE STUDY: NO DIAGNOSIS: CHEST PAIN CARDIAC HISTORY: CATHERIZATION: NO SURGERY: NO PROSTHETIC VALVE: NO PACEMAKER: NO MEASUREMENTS (cm) DIASTOLIC (NORMALS) SYSTOLIC (NORMALS) IVSd 1.1 (0.6-1.2) LA Diam 3.2 (1.9-4.0) LVEF 75% LVIDd 4.2 (3.5-5.7) LVIDs 2.4 (2.0-3.5) %FS 44% LVPWd 1.1 (0.6-1.2) Ao Diam 2.6 (2.0-3.7) 2 DIMENSIONAL ASSESSMENT: RIGHT ATRIUM: NORMAL LEFT ATRIUM: NORMAL RIGHT VENTRICLE: NORMAL LEFT VENTRICLE: NORMAL TRICUSPID VALVE: NORMAL MITRAL VALVE: NORMAL PULMONIC VALVE: NORMAL AORTIC VALVE: NORMAL PERICARDIAL EFFUSION: NONE AORTIC ROOT: NORMAL LEFT VENTRICULAR WALL MOTION: NORMAL DOPPLER/COLOR FLOW: MILD MITRAL AND TRICUSPID REGURGITATION. NORMAL RIGHT VENTRICULAR SYSTOLIC PRESSURE. COMMENTS: NORMAL 2D ECHOCARDOGRAM. MILD MITRAL AND TRICUSPID REGURGITATION TECHNOLOGIST: Johana KNAPP
--- NOTE | 2018-10-06 16:14 | EKG ---
Test Date: 2018-10-06 Test Time: 12:23:55 Manager Lab: [facility] MEASUREMENT RESULTS: Intervals: Rate: 64 SD: 116 QRSD: 78 QT: 424 QTc: 437 [place]: P: -12 SD: 116 QRS: 21 T: 24 INTERPRETIVE STATEMENTS: Normal sinus rhythm Nonspecific T wave abnormality Abnormal ECG Compared to ECG 09/27/2018 09:45:36 T-wave abnormality now present Sinus arrhythmia no longer present ST (T wave) deviation no longer present Electronically Signed On 10-06-18 16:13:47 LIABILITY CLAIMS REPRESENTATIVE by Geovany Metz
[2018-10-06] MEDS ORDERED: ACETAMINOPHEN 500 MG TAB PO PRN (16:48)
[2018-10-06] MEDS ORDERED: ONDANSETRON 4 MG/2 ML VIAL IV PRN (16:48)
--- NOTE | 2018-10-06 17:38 | P.HP ---
Certification for Inpatient Patient admitted to: Observation With expected LOS: <2 Midnights Patient will require the following post-hospital care: None Practitioner: I am a practitioner with admitting privileges, knowledge of patient current condition, hospital course, and medical plan of care. Services: Services provided to patient in accordance with Admission requirements found in Title 42 Section 412.3 of the Code of Federal Regulations Patient History Date of Service: 10/06/18 Primary Care Provider: Dr. Iraheta Reason for admission: Chest pain History of Present Illness: This is a 78-year-old female with significant past medical history of panhypopituitarism, hypertension, diabetes, hyperlipidemia who presented to the ED complaining of having some chest pain that started this morning at around 5: 00 a.m.. Patient stated that she was laying in bed sleeping when her chest pain started suddenly on the left lower side of her chest. Patient felt like somebody was sitting on her chest and the she decided to come to the ER. Patient states that she has similar episodes in the past and was told that it was most likely is related to her anxiety. Patient was recently seen by her trace evidence technician at [facility] and had extensive cardiac workup which included echocardiogram and stress test. Both of which were negative without any abnormality. Patient also had recent workup done with GI with the EGD and colonoscopy and has a HIDA scan scheduled on Tuesday to evaluate for gallbladder disease. Patient does have a history of chronic pancreatitis in the past and has been well controlled on medications at this time. Patient does not have any other symptoms other than chest pain. Denies having any shortness of breath fever nausea vomiting or any other associated symptoms. Allergies ciprofloxacin [From Cipro] Allergy (Verified 02/11/17 06:42) Unknown rivaroxaban [From Xarelto] Allergy (Verified 02/11/17 06:42) Unknown Home Medications: Atorvastatin Calcium 10 mg PO BEDTIME 01/07/18 Cholecalciferol (Vitamin D3) [Vitamin D3] 1 tab PO SEECOM 01/07/18 Dexlansoprazole [Dexilant] 2 cap PO DAILY 01/07/18 Fenofibrate [Tricor*] 1 tab PO DAILY 01/07/18 Gabapentin 1 tab PO TID 01/07/18 Glipizide [Glipizide Xl] 2.5 mg PO DAILY 01/07/18 Hydrocortisone [Cortef*] 4 tab PO BID 01/07/18 Levothyroxine Sodium [Tirosint] 12.5 mcg PO DAILY 01/07/18 Linagliptin [Tradjenta] 5 mg PO DAILY 01/07/18 Liothyronine Sodium [Cytomel] 1 tab PO DAILY 01/07/18 Lipase/Protease/Amylase [Aida Dahl 12,000 Units Capsule] 1 cap PO TID 01/07/18 Somatropin [Omnitrope] 0.3 ml SQ DAILY 01/07/18 Warfarin Sodium 3 mg PO DAILY 01/07/18 LORazepam [Ativan*] 0.5 mg PO DAILY 01/08/18 Amlodipine [Norvasc*] 10 mg PO DAILY #30 tab 01/12/18 Carvedilol [Coreg] 25 mg PO BID #60 tab 01/12/18 Ceftriaxone 1 gm/Ns 50 ml [Rocephin 1Gm/50 ml Ivpb] 1 gm IV DAILY #10 bag Furosemide [Lasix*] 20 mg PO DAILY #30 tab 01/12/18 Hydrocortisone Cream [Hydrocortisone 1% Cream*] 1 appl TOP TID PRN #1 tube 01/12 Miconazole [Monistat-7 2% Vaginal Cream*] 1 appl VAG BEDTIME #7 gm 01/12/18 - Past Medical/Surgical History Diabetic: Yes -: Diabetes mellitus type 2 -: History CVA 2012 -: HTN -: Anxiety -: History of pituitary gland removal -: GERD with history of GI bleed -: Hypothyroidism -: Chronic anti coagulation -: History atrial fibrillation -: Chronic steroids -: Adrenal insufficiency -: Hyperlipidemia -: hysterectomy -: bradley carpal tunnel sx -: L lumpectomy -: brain tumor removed- benign -: pituitary gland removal -: appendectomy Psychosocial/ Personal History: The patient is . She has 5 children. She does not work. - Family History Family History: Reviewed- Non-Contributory - Family History Mother -: Heart disease, Hypertension Notes: of heart attack Father -: Heart disease Notes: of heart attack - Social History Alcohol use: No CD- Drugs: No Caffeine use: Yes Review of Systems 10-point ROS is otherwise unremarkable Physical Examination - Vital Signs Temperature: 97.0 F Blood Pressure: 143/69 Pulse: 68 Respirations: 18 Pulse Ox (%): 98 - Physical Exam General: Alert, In no apparent distress HEENT: Atraumatic, PERRLA, Mucous membr. moist/pink, EOMI, Sclerae nonicteric Neck: Supple, 2+ carotid pulse no bruit, No LAD, Without JVD or thyroid abnormality Respiratory: Clear to auscultation bilaterally, Normal air movement Cardiovascular: Regular rate/rhythm, Normal S1 S2 Gastrointestinal: Normal bowel sounds, No tenderness Musculoskeletal: No tenderness Integumentary: No rashes Neurological: Normal gait, Normal speech, Normal strength at 5/5 x4 extr, Normal tone, Normal affect Lymphatics: No axilla or inguinal lymphadenopathy - Studies Laboratory Data (last 24 hrs) 10/06/18 12:20: PT 20.2 H, INR 1.70 10/06/18 12:20: WBC 6.7 D, Hgb 13.5, Hct 38.2, Plt Count 148 L 10/06/18 12:20: Sodium 147 H, Potassium 2.9 L*, BUN 23 H, Creatinine 1.17, Glucose 87, Magnesium 1.5 L, Total Bilirubin 0.5, AST 18, ALT 21, Alkaline Phosphatase 60 Assessment and Plan - Problems (Diagnosis) (1) Chest pain Onset Date: 02/11/17 Current Visit: No Status: Inactive Plan: Chest pain most likely secondary to her anxiety. -troponin x2 pending at this time. EKG with nonspecific changes -will get echocardiogram at this time in no way troponin results -if troponin x2 were negative and echocardiogram is within normal limits patient could be safely discharged home and to follow up with her primary care doctor -recent stress test done with cardiology in [facility] 1 week ago. Results were within normal limits Qualifiers: Chest pain type: unspecified Qualified Code(s): R07.9 - Chest pain, unspecified (2) Panhypopituitarism Onset Date: 01/20/16 Current Visit: No Status: Chronic Plan: Restart home medications at this time. Patient has resection of her pituitary gland (3) Atrial fibrillation Onset Date: 12/30/16 Current Visit: No Status: Chronic Plan: Restart home medication warfarin and sotalol at this time Qualifiers: Atrial fibrillation type: chronic Qualified Code(s): I48.2 - Chronic atrial fibrillation (4) Diabetes mellitus type II, non insulin dependent Onset Date: 01/20/16 Current Visit: No Status: Chronic Plan: Insulin sliding scale (5) Hyperlipidemia Onset Date: 01/20/16 Current Visit: No Status: Chronic Plan: Restart home medication Qualifiers: Hyperlipidemia type: mixed hyperlipidemia Qualified Code(s): E78.2 - Mixed hyperlipidemia (6) Hypertension Onset Date: 01/20/16 Current Visit: No Status: Chronic Plan: Restart home medication Qualifiers: Hypertension type: essential hypertension Discharge Plan: Home Plan to discharge in: 48 Hours - Advance Directives Does patient have a Living Will: No Does patient have a Durable POA for Healthcare: Yes - Code Status/Comfort Care Code Status Assessed: Yes Critical Care: No
[2018-10-06 17:53] VITALS: BMI 28.5
[2018-10-06] MEDS ORDERED: ENOXAPARIN 40 MG/0.4 ML SQ SCH (18:00)
[2018-10-06] MEDS: NA CHLORIDE 0.9% 1,000 ML IV SCH (19:00)
[2018-10-06 19:08] LABS: Urine Appearance CLEAR; Urine Bilirubin NEGATIVE (NEG); Urine Blood NEGATIVE (NEG); Urine Color YELLOW; Urine Glucose NEGATIVE (NEG); Urine Protein NEGATIVE (NEG); Urine Specific Gravity 1.015 (1.005-1.030); Urine Urobilinogen 0.2 mg/dL (0.2-1.0)
[2018-10-06 19:16] LABS: Urine Bacteria <20 /HPF (<20); Urine Culture Reflex Order NOT NEEDED; Urine RBC NONE SEEN /HPF (NONE SEEN)
[2018-10-06] MEDS: AMYLASE PO SCH (21:00)
[2018-10-06] MEDS: PROTEASE PO SCH (21:00)
[2018-10-06] MEDS: LIPASE PO SCH (21:00)
[2018-10-06] MEDS: SOTALOL HCL 80 MG TAB PO SCH (21:05)
[2018-10-06] MEDS: HYDROCORTISONE 10 MG TAB PO SCH (21:05)
[2018-10-07 00:46] VITALS: O2SAT 99
[2018-10-07] MEDS ORDERED: ALPRAZOLAM 0.5 MG TABLET PO ONE (01:44)
[2018-10-07] MEDS ORDERED: POTASSIUM CL SA 10 MEQ TAB PO ONE (01:47)
[2018-10-07] MEDS: NA CHLORIDE 0.9% 1,000 ML IV SCH ×2 (05:56→08:20)
[2018-10-07] MEDS ORDERED: LEVOTHYROXINE SOD 0.112 MG TAB PO SCH (06:00)
[2018-10-07] MEDS ORDERED: LIOTHYRONINE SOD 5 MCG TAB PO SCH (06:00)
[2018-10-07 06:09] LABS: Absolute Lymphocytes (CBC) 1.3 K/uL (0.7-4.9); Absolute Monocytes 0.2 K/uL (0.1-1.3); Absolute Neutrophil 1.8 K/uL (1.8-8.0); Basophils % 0.4 % (0-1.3); Eosinophils % 1.7 % (0-4.4); Hematocrit 34.5 % (36.0-45.0); Lymphocytes % 37.4 % (15.3-44.8); MPV 10.1 fL (7.6-11.3); Monocytes % 7.1 % (3.3-12.3); RBC Red Blood Cell Count 3.79 M/uL (3.86-4.86)
[2018-10-07 06:25] LABS: Bilirubin Total 0.4 mg/dL (0.2-1.0); Magnesium 1.8 mg/dL (1.8-2.4); Protein, Total 5.6 g/dL (6.4-8.2)
[2018-10-07] MEDS ORDERED: PANTOPRAZOLE 40MG TABLET PO SCH (06:30)
[2018-10-07] MEDS ORDERED: MAGNESIUM SULFATE 1 gm IVPB 1 GM/100 ML BAG IV ONE ×2 (06:46→09:00)
[2018-10-07] MEDS: LIPASE PO SCH (07:30)
[2018-10-07] MEDS: PROTEASE PO SCH (07:30)
[2018-10-07] MEDS: AMYLASE PO SCH (07:30)
[2018-10-07] MEDS: SOTALOL HCL 80 MG TAB PO SCH (08:20)
[2018-10-07] MEDS: HYDROCORTISONE 10 MG TAB PO SCH (08:20)
[2018-10-07] MEDS ORDERED: FENOFIBRATE 48 MG TAB PO SCH (09:00)
[2018-10-07] MEDS ORDERED: LOSARTAN POTASSIUM 50 MG TABLET PO SCH (09:00)
[2018-10-07] MEDS ORDERED: AMLODIPINE 5 MG TAB PO SCH (09:00)
[2018-10-07] MEDS ORDERED: SOMATROPIN SQ SCH (09:00)
[2018-10-07] MEDS ORDERED: LIOTHYRONINE SOD 25 MCG TAB PO SCH (09:00)
--- NOTE | 2018-10-07 11:42 | P.DS ---
Admission Date: 10/06/18 Discharge Date: 10/07/18 Primary Care Provider: Dr. Iraheta Disposition: ROUTINE DISCHARGE Discharge Condition: GOOD Reason for Admission: Chest pain Consultations: Cardiology - Problems (1) Chest pain Onset Date: 02/11/17 Status: Inactive Qualifiers: Chest pain type: unspecified Qualified Code(s): R07.9 - Chest pain, unspecified (2) Panhypopituitarism Onset Date: 01/20/16 Status: Chronic (3) Atrial fibrillation Onset Date: 12/30/16 Status: Chronic Qualifiers: Atrial fibrillation type: chronic Qualified Code(s): I48.2 - Chronic atrial fibrillation (4) Diabetes mellitus type II, non insulin dependent Onset Date: 01/20/16 Status: Chronic (5) Hyperlipidemia Onset Date: 01/20/16 Status: Chronic Qualifiers: Hyperlipidemia type: mixed hyperlipidemia Qualified Code(s): E78.2 - Mixed hyperlipidemia (6) Hypertension Onset Date: 01/20/16 Status: Chronic Qualifiers: Hypertension type: essential hypertension Brief History of Present Illness: This is a 78-year-old female with significant past medical history of panhypopituitarism, hypertension, diabetes, hyperlipidemia who presented to the ED complaining of having some chest pain that started this morning at around 5: 00 a.m.. Patient stated that she was laying in bed sleeping when her chest pain started suddenly on the left lower side of her chest. Patient felt like somebody was sitting on her chest and the she decided to come to the ER. Patient states that she has similar episodes in the past and was told that it was most likely is related to her anxiety. Patient was recently seen by her marketing strategy lead at [facility] and had extensive cardiac workup which included echocardiogram and stress test. Both of which were negative without any abnormality. Patient also had recent workup done with GI with the EGD and colonoscopy and has a HIDA scan scheduled on Tuesday to evaluate for gallbladder disease. Patient does have a history of chronic pancreatitis in the past and has been well controlled on medications at this time. Patient does not have any other symptoms other than chest pain. Denies having any shortness of breath fever nausea vomiting or any other associated symptoms. Hospital Course: Overall during the hospital stay patient remained stable The patient has been admitted to the hospital for chest pain ACS rule out. Troponin x2 was negative. EKG remained negative. Patient's chest pain was most likely atypical and related to anxiety. Cardiology recommended the patient be discharged home under stable condition and follow up with primary care provider regarding switching her anxiety medication. Currently patient takes abdomen however it makes her feel uneasy and restless. Patient was asked to tell [facility] doctor to see the patient to be placed on longterm and high anxiety medication such as Lexapro or any other SSRI. Patient and family demonstrated understanding and thus patient was discharged home under stable condition Vital Signs/Physical Exam: Temp Pulse Resp BP Pulse Ox 97.4 F 73 16 168/82 H 98 10/07/18 08:00 10/07/18 08:20 10/07/18 08:00 10/07/18 08:20 10/07/18 08:00 General: Alert, In no apparent distress HEENT: Atraumatic, PERRLA, EOMI Neck: Supple, JVD not distended Respiratory: Clear to auscultation bilaterally, Normal air movement Cardiovascular: Regular rate/rhythm, Normal S1 S2 Gastrointestinal: Normal bowel sounds, No tenderness Musculoskeletal: No tenderness Integumentary: No rashes Neurological: Normal speech, Normal tone, Normal affect Lymphatics: No axilla or inguinal lymphadenopathy Laboratory Data at Discharge: WBC 3.4 K/uL (4.3-10.9) L D 10/07/18 05:08 Hgb 11.8 g/dL (12.0-15.0) L 10/07/18 05:08 Hct 34.5 % (36.0-45.0) L 10/07/18 05:08 Plt Count 134 K/uL (152-406) L 10/07/18 05:08 PT 20.2 SECONDS (9.5-12.5) H 10/06/18 12:20 INR 1.70 10/06/18 12:20 Sodium 148 mmol/L (136-145) H 10/07/18 05:08 Potassium 4.0 mmol/L (3.5-5.1) 10/07/18 05:08 BUN 22 mg/dL (7-18) H 10/07/18 05:08 Creatinine 0.70 mg/dL (0.55-1.3) 10/07/18 05:08 Glucose 83 mg/dL (74-106) 10/07/18 05:08 Magnesium 1.8 mg/dL (1.8-2.4) 10/07/18 05:08 Total Bilirubin 0.4 mg/dL (0.2-1.0) 10/07/18 05:08 AST 12 U/L (15-37) L 10/07/18 05:08 ALT 16 U/L (12-78) 10/07/18 05:08 Alkaline Phosphatase 50 U/L (45-117) 10/07/18 05:08 Troponin I < 0.02 ng/mL (0.0-0.045) 10/06/18 17:58 Home Medications: Amlodipine [Norvasc*] 5 mg PO DAILY 10/06/18 Cholecalciferol (Vitamin D3) [Vitamin D3] 50,000 unit PO SEECOM 10/06/18 Dexlansoprazole [Dexilant] 60 mg PO DAILY 10/06/18 Fenofibrate [Tricor*] 48 mg PO DAILY 10/06/18 Glipizide [Glucotrol Xl] 2.5 mg PO SEECOM 10/06/18 Hydrocortisone [Cortef*] 2 tab PO BID 10/06/18 LORazepam [Ativan*] 0.5 mg PO BID PRN 10/06/18 Levothyroxine [Synthroid*] 112 mcg PO [id number] 10/06/18 Liothyronine [Cytomel*] 5 mcg PO DAILY 10/06/18 Lipase/Protease/Amylase [Creon Dr 36,000 Units Capsule] 2 tab PO ACHS 10/06/18 Losartan Potassium [Cozaar] 100 mg PO DAILY 10/06/18 Somatropin [Omnitrope] 0.3 mg SQ DAILY 10/06/18 Sotalol HCl [Betapace] 1 tab PO BID 10/06/18 Warfarin Sodium [Coumadin*] 3 mg PO DAILY 5 PM 10/06/18 Patient Discharge Instructions: Please f.u with PCP and Cardiology in 1 to 2 week post discharge. No New medication. It is advised to not take Ativan for panic attack as it may cause worsening for you since you did not tolerate the Ativan first time. You can take Lexapro or another SSRI. You can discuss this with PCP during the f.u visit Diet: Regular Activity: Ad akiko Followup: Geovany Metz MD [ACTIVE - CAN ADMIT] - 1 Week
[2018-10-07 12:04] VITALS: BP 129/60; TEMP 97.2
[2018-10-07] MEDS ORDERED: WARFARIN SODIUM 3 MG TAB PO SCH (17:00)
[2018-10-20] MEDS ORDERED: DRISDOL (VITAMIN D=ERGOCALCIFEROL) 50000 UNIT CAP PO SCH (09:00)
== END 2018-10-07 11:30 | disposition home or self-care (01) ==
LOC: ER 11:54 → ERHOLD 14:42 → 4TH 16:35
PROVIDERS: ADMIT Family Medicine; ATTEND Family Medicine
DX: R07.9 Chest pain, unspecified (principal); E23.0 Hypopituitarism; I48.2 Chronic atrial fibrillation; E11.9 Type 2 diabetes mellitus without complications; E78.2 Mixed hyperlipidemia; I10 Essential (primary) hypertension; Z86.73 Personal history of transient ischemic attack (TIA), and cerebral infarction without residual deficits
CPT/HCPCS: 36415 ×2; 71045; 80048; 80053; 80076; 81001; 82962 ×5; 83735 ×2; 83880; 84132 ×2; 84439; 84443; 84484 ×2; 85025 ×2; 85610; 93005; 93306; 96374; 99285; G0378 ×2; J3475 ×2; J7030 ×2

== ENCOUNTER 2018-10-08 07:52 | Emergency (ER) | payer OTHER ==
--- OUTSIDE RECORDS SUMMARY | 2018-10-08 07:55 | XMS REPORT | Clinical Summary ---
:1940 Author Organization [facility] Address [address] [place] [address] Care Team Providers Name Role Phone Unavailable [...] Marc Fernandez III, MD 03/14/2018 Surgery Gastroenterology [facility] UPPER ENDOSCOPY,BIOPSY [facility] 03/14/2018 Hospital Gastroenterology [facility] Encounter [facility] 03/13/2018 Hospital Pre-Admission Testing [facility] Encounter [facility] Diana, [facility] Preadmit Phone 01/13/2018 Hospital Intensive [...] Medicine Samaria Seals Tachycardia MD Natanael after 10/07/2017 Family History Medical History Relation Name Comments [...] CULTURE Routine 01/14/2018 1:26 AM CDT after 10/07/2017 Results REPORT OF PROCEDURE - ENDOSCOPY URL (03/14/2018 12:19 PM CDT) Narrative Performed At POC-Glucose meter (03/14/2018 11:55 AM CDT)Only the most recent of17 resultswithin the time period is included. POC-Glucose Meter 75Comment: TESTED AT 70 - 110 mg/dL [facility] [address] [facility] [id number] Specimen Blood Performing Organization Address City/State/Zipcode Phone Number [place] [phone] [place], [place] [phone] CENTER Tissue Exam (03/14/2018 11:15 AM CDT) Case Report Surgical Pathology Report Case: [id number] [facility] Authorizing Provider:Luiz Hayesected: 03/14/2018 1115 [facility] Ordering Location: [facility] Endoscopy Received: 03/14/2018 1351 Services Pathologist: Mara Barboza MD Specimens: A) - Polyp, Duodenum B) - Stomach,Antrum, bx C) - Biopsy, Gastric, gastric body D) - Biopsy, Esophagus, random ADDENDUM THIS ADDENDUM IS ISSUED TO REPORT THE RESULT OF IMMUNOHISTOCHEMICAL STUDY FOR HELICOBACTER PYLORI OM SPECIMEN B: [facility] - NEGATIVE [facility] CPT CODE: 70999 DIAGNOSIS A. DUODENUM, ENDOSCOPIC POLYPECTOMY: [facility] - COMPATIBLE WITH PEPTIC DUODENITIS [facility] - NO FEATURES OF CELIAC DISEASE [...] MALIGNANCY SEEN Signing Pathologist Direct Phone Line: [phone] CPT Code(s) 08068 X 4; 52624 X 2 [facility] SPECIMEN SOURCE A. Polyp, duodenum. B. Stomach [facility] antrum. C. Biopsy, gastric, [facility] description gastric body. D. Biopsy, esophagus, description random GROSS DESCRIPTION Part A. Received in formalin, labeled "polyp, duodenum", is a 0.5 x 0.4 x 0.2 cm polypoid shaped brown-chaevz fragment of soft tissue. The base is inked green, and the polyp is bisected and submitted entirely in one cassette (A1). [facility] Part B. Received in formalin [...] is incorporated in the diagnostic report above: [facility] WARTHIN-STARRY X 2 [facility] Specimen Tissue - Polyp, Duodenum Performing Organization Address City/State/Zipcode Phone Number [facility] [address] [place] [address] [phone] CENTER EKG-SCANNED (01/20/2018 3:11 PM CDT) Narrative Performed At RHYTHM STRIP - SCAN (01/20/2018 3:11 PM CDT) Narrative Performed At ECHOCARDIOGRAM REPORT - SCAN (01/19/2018 2:21 PM CDT) Narrative Performed At 2D Echo W/Doppler(CW/PW/Color) (01/18/2018 1:59 PM CDT) Ejection Fraction [facility] Narrative Performed At Transthoracic Echocardiography Report (TTE) 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 WBC 4.8 3.5 - 10.5 K/L [facility] RBC 3.28 (L) 3.93 - 5.22 M/L [facility] Hemoglobin 10.4 (L) 11.2 - 15.7 GM/DL [facility] Hematocrit 32.7 (L) 34.1 - 44.9 % [facility] MCV 99.7 (H) 79.4 - 94.8 fL [facility] MCH 31.7 25.6 - 32.2 pg [facility] MCHC 31.8 (L) 32.2 - 35.5 GM/DL [facility] RDW 14.7 (H) 11.7 - 14.4 % [facility] Platelets 141 (L) 150 - 450 K/CU MM [facility] MPV 11.2 9.4 - 12.3 fL [facility] nRBC 0 0 - 0 /100 WBC [facility] % Neutros 67 % [facility] % Lymphs 26 % [facility] % Monos 5 % [facility] % Eos 1 % [facility] % Baso 0 % [facility] # Neutros 3.21 1.56 - 6.13 K/L [facility] # Lymphs 1.24 1.18 - 3.74 K/L [facility] # Monos 0.23 (L) 0.24 - 0.36 K/L [facility] # Eos 0.06 0.04 - 0.36 K/L [facility] # Baso 0.02 0.01 - 0.08 K/L [facility] Immature Granulocytes-Relative 1 0 - 1 % [facility] Specimen Blood - Arm, Left Performing Organization Address City/State/Zipcode Phone Number [facility] [address] [place] [address] CENTER Prothrombin time/INR (01/18/2018 3:49 AM CDT)Only the most recent of7 resultswithin the time period is included. Protime 23.7 (H) 11.7 - 14.7 seconds [facility] INR 2.1 <=5.9 [facility] Specimen Blood - Arm, Left Narrative Performed At [facility] RECOMMENDED COUMADIN/WARFARIN INR THERAPY RANGES STANDARD DOSE: 2.0 - 3.0 Includes: PROPHYLAXIS for venous thrombosis, systemic embolization; TREATMENT for venous thrombosis and/or pulmonary embolus. HIGH RISK: Target INR is 2.5-3.5 for patients with mechanical heart valves. Performing Organization Address City/[facility]/Zipcode Phone Number [facility] [address] [place] [address] [phone] [place] Magnesium (01/18/2018 3:49 AM CDT)Only the most recent of8 resultswithin the time period is included. Magnesium 1.7 1.6 - 2.6 mg/dL [facility] Specimen Blood - Arm, Left Performing Organization Address [facility] Phone Number [address] [address] [place] Comprehensive metabolic panel (01/18/2018 3:49 AM CDT)Only the most recent of6 resultswithin the time period is included. Protein, Total 5.2 (L) 6.0 - 8.3 gm/dL [facility] Albumin 3.0 (L) 3.5 - 5.0 g/dL [facility] Alkaline Phosphatase 39 (L) 40 - 150 U/L [facility] Total Bilirubin 0.4 0.2 - 1.2 mg/dL [facility] Sodium 145 136 - 145 meq/L [facility] Potassium 3.6 3.5 - 5.1 meq/L [facility] Chloride 109 (H) 98 - 107 meq/L [facility] CO2 28 22 - 29 meq/L [facility] BUN 8 7 - 21 mg/dL [facility] Creatinine 0.70 0.57 - 1.25 mg/dL [facility] Glucose 107 (H) 70 - 105 mg/dL [facility] Calcium 8.4 8.4 - 10.2 mg/dL [facility] AST 9 5 - 34 U/L [facility] ALT <6 (L) 6 - 55 U/L [facility] EGFR 81Comment: ESTIMATED GFR mL/min/1.73 sq m [facility] IS NOT ACCURATE [facility] CREATININE CLEARANCE IN PREDICTING GLOMERULAR FILTRATION RATE. ESTIMATED GFR IS NOT APPLICABLE FOR DIALYSIS PATIENTS. Specimen Blood - Arm, Left Performing Organization Address [facility] Phone Number [facility] [address] [place] [address] CENTER ECG 12 lead (01/17/2018 7:28 AM CDT)Only the most recent of2 resultswithin the time period is included. Narrative Performed At Ventricular Rate 62 BPM GE MUSE Atrial Rate 62 BPM P-R Interval 126 ms QRS Duration 72 ms Q-T Interval 392 ms QTC Calculation(Bazett) 397 ms P [place] 43 degrees R [place] 0 degrees T [place] 4 degrees Normal sinus rhythm Normal ECG [...] 392 ms QTC Calculation(Bazett) 397 ms P [place] 43 degrees R [place] 0 degrees T [place] 4 degrees Normal sinus rhythm Normal ECG When compared with ECG of 14-JAN-2018 07:47, Sinus rhythm has replaced Atrial fibrillation Vent. rate has decreased BY 67 BPM Confirmed by Myriam CABELLO BASANT ([id number]) on 01/17/2018 9:57:49 PM Performing Organization Address [facility] Phone Number [employer] MUSE T3, free (01/17/2018 3:19 AM CDT) T3, Free 1.31 (L) 1.71 - 3.71 pg/mL [facility] Specimen Blood - Central Venous Line Performing Organization Address City/[facility] Phone Number [facility] [address] [address] CENTER T3 (01/17/2018 3:19 AM CDT) T3, Total 41 (L) 48 - 159 ng/dL [facility] Specimen Blood - Central Venous Line Performing Organization Address [facility] Phone Number [address] [address] CENTER Lipase (01/17/2018 3:19 AM CDT)Only the most recent of2 resultswithin the time period is included. Lipase 471 (H) 8 - 78 U/L [facility] Specimen Blood - Central Venous Line Performing Organization Address [facility] Phone Number [address] [address] [place] Basic Metabolic Panel (01/16/2018 4:26 PM CDT) Sodium 143 136 - 145 meq/L [facility] Potassium 4.1 3.5 - 5.1 meq/L [facility] Chloride 109 (H) 98 - 107 meq/L [facility] CO2 24 22 - 29 meq/L [facility] BUN 9 7 - 21 mg/dL [facility] Creatinine 0.74 0.57 - 1.25 mg/dL [facility] Glucose 249 (H) 70 - 105 mg/dL [facility] Calcium 8.1 (L) 8.4 - 10.2 mg/dL [facility] EGFR 76Comment: ESTIMATED GFR IS mL/min/1.73 sq m [facility] NOT ACCURATE CREATININE [facility] CENTER CLEARANCE IN PREDICTING GLOMERULAR FILTRATION RATE. ESTIMATED GFR IS NOT APPLICABLE FOR DIALYSIS PATIENTS. Specimen Blood Performing Organization Address [facility] Phone Number [address] [address] CENTER Clostridium difficile [facility] Toxin (01/16/2018 4:08 AM CDT) C. Difficle Toxin Negative Negative [facility] C. Difficile [facility] Antigen Positive (A)Comment: C. Negative [facility] difficile present but toxin [facility] not detected. Indicates colonization with non-toxigenic strain or level of toxin below detectable levels. No need for enteric isolation. Treatment is rarely needed (only when strong clinical suspicion for Clostridium difficile infection) Specimen Stool - Stool Narrative Performed At Testing performed by [employer] [facility] Assay.For GDH, published sensitivity of the assay is 98.7% compared to cytotoxicity testing.For Toxin AB, published sensitivity is 87.8% and specificity 99.4% compared to cytotoxicity testing. Verification of kit performance was done by the [facility] Microbiology Lab prior to clinical use. Performing Organization Address City/[facility] Phone Number [address] [address] [place] Potassium (01/15/2018 5:00 PM CDT)Only the most recent of2 resultswithin the time period is included. Potassium 4.2 3.5 - 5.1 meq/L [facility] Specimen Blood Performing Organization Address [facility] Phone Number [address] [address] [place] Troponin I (01/14/2018 12:14 PM CDT)Only the most recent of2 resultswithin the time period is included. Troponin I 0.02 0.00 - 0.03 ng/mL [facility] Specimen Blood Narrative Performed At [facility] Troponin I (TnI) levels must [...] City/State/Zipcode Phone Number [facility] [address] [place] [address] [phone] CENTER B-type Natriuretic Factor (BNP) (01/14/2018 11:08 AM CDT) BNP 975 (H) 0 - 100 pg/mL [facility] Specimen Blood Performing Organization Address [facility]/Zipcode Phone Number [facility] [address] [place] [address] [place] US abdomen limited (01/14/2018 6:45 AM CDT) Narrative Performed At FINAL REPORT [employer] INDICATION: 77-year-old female with abdominal pain and [...] MD Report Verified Date/Time:01/14/2018 10:23:02 Reading [id number] Ortho Consult Reading Room Procedure [...] Report Verified Date/Time: 01/14/2018 10:23:02 Reading [facility] Ortho Consult Reading Room Performing Organization Address City/[facility] Phone Number [facility]IS Vitamin B12 and Folate (01/14/2018 6:34 AM CDT) Vitamin B12 1,276 (H) 213 - 816 pg/mL [facility] Folate 8.8 >=7.0 ng/mL [facility] Specimen Blood - Line, Venous Performing Organization Address City/State/Zipcode Phone Number [address] [address] CENTER TSH/Free T4 If Indicated (01/14/2018 6:34 AM CDT) TSH 0.02 (L) 0.35 - 4.94 uIU/mL [facility] Specimen Blood - Line, Venous Performing Organization Address [facility] Phone Number [address] [address] [phone] [place] T4, free (01/14/2018 6:34 AM CDT) Free T4 0.83 0.70 - 1.48 ng/dL [facility] Specimen Blood - Line, Venous Performing Organization Address [facility] Phone Number [address] [address] [place] Lipid panel (01/14/2018 6:34 AM CDT) Triglycerides 171 mg/dL [facility] Cholesterol 123 mg/dL [facility] HDL 25 mg/dL [facility] LDL Calculated 64 mg/dL [facility] Specimen Blood - Line, Venous Narrative Performed At [facility] Triglyceride Reference Range: Low Risk <150 [id number] High Risk 200-499 Very High Risk>=500 Cholesterol Reference Range: Low Risk <200 [id number] High Risk>240 HDL Cholesterol Reference Range: Low Risk >=60 High Risk <40 LDL Cholesterol Reference Range: Optimal<100 Near [id number] Gyjb241-982 Very High >=190 Performing Organization Address [facility] Phone Number [address] [address] CENTER Blood culture (01/14/2018 1:28 AM CDT)Only the most recent of2 resultswithin the time period is included. Result No growth in 5 days [facility] Specimen Blood - Line, Venous Performing Organization Address [facility] Phone Number [address] [address] [place] Urinalysis w/Microscopic (01/14/2018 1:28 AM CDT) Color, UA Yellow [facility] Clarity, UA Clear [facility] Specific [place], UA 1.043 (H) 1.001 - 1.035 [facility] pH, UA 6.5 5.0 - 8.0 [facility] Protein, UA 20 mg/dL (A) Negative [facility] Glucose, UA 1000 mg/dL (A) Negative [facility] Ketones, UA Negative Negative [facility] Bilirubin, UA Negative Negative [facility] Blood, UA Trace (A) Negative [facility] Nitrite, UA Negative Negative [facility] Leukocytes, UA Negative Negative [facility] Urobilinogen, UA 0.2 0.2 - 1.0 mg/dL [facility] RBC, UA 1 /HPF [facility] WBC, UA 3 /HPF [facility] Bacteria, UA Rare [facility] Specimen Source Urine, Taylor [facility] Specimen Urine - Urine, Taylor Performing Organization Address City/[facility]/Zipcode Phone Number [address] [address] [phone] [place] Urine culture (01/14/2018 1:28 AM CDT) Result No growth [facility] Specimen Urine - Urine, Taylor Performing Organization Address City/[facility]/Zipcode Phone Number [address] [address] [place] Procalcitonin (01/14/2018 1:26 AM CDT) Procalcitonin 0.41 (H) <0.05 ng/mL [facility] Specimen Blood - Central Venous Line Narrative Performed At [facility] SEPSIS RISK (ng/mL) Low:0.05-0.50 Intermediate: 0.51-2.00 High: >=2.01 Performing Organization Address [facility] Phone Number [address] [address] [place] Lactic acid, venous, whole blood (01/14/2018 1:26 AM CDT) Lactate, Venous 1.3Comment: Specimen 0.5 - 2.2 mmol/L [facility] slightly hemolyzed [facility] Specimen Blood - Central Venous Line Narrative Performed At [facility] Effective 01/07/2016: Units/Reference Range Change New: 0.5-2.2 mmol/LPrevious: 5-20 mg/dL Performing Organization Address [facility] Phone Number [address] [address] [place] aPTT (01/14/2018 1:26 AM CDT) PTT 32.4 22.5 - 36.0 seconds [facility] Specimen Blood - Central Venous Line Performing Organization Address [facility] Phone Number [address] [address] [place] Amylase (01/14/2018 1:26 AM CDT) Amylase 226 (H) 25 - 125 U/L [facility] Specimen Blood - Central Venous Line Performing Organization Address [facility] Phone Number [address] [address] [place] after 10/07/2017 Insurance Payer Benefit Plan / Group Subscriber ID Type Phone Address MEDICARE MEDICARE A B xxxxxxxxxx Medicare AETNA - MGD CARE AETNA INDEMNITY NON CONTR xxxxxxxxxx Comm ([place] [address] Advance Directives For more information, please contact:[address] [place], [place] [phone] Code Status Date Activated Date Inactivated Comments Full Code 01/14/2018 12:36 AM 01/18/2018 6:55 PM This code status was determined by: Patient
--- OUTSIDE RECORDS SUMMARY | 2018-10-08 07:56 | XMS REPORT ---
:1940 [facility] [address] [place] [address] Dr. Saunders [address] [place] [id number] Care Team Providers Name Role Phone MACIEJ VILLA Unavailable Unavailable RANCHO SANDOVAL Unavailable Unavailable Problems This patient has no known problems. Allergies, Adverse Reactions, Alerts This patient has no known allergies or adverse reactions. Medications This patient has no known medications. Results Test Description Test Time Test Comments Text Results Atomic Results Result Comments TISSUE EXAM 2018-03-20 13:06:00 Surgical Pathology Report Case: [id number] Authorizing Provider: Maciej Villa Collected: 03/14/2018 1115 Ordering Location: [facility] Endoscopy Received: 03/14/2018 1351 Services Pathologist: Mara Barboza MD Specimens: A) - Polyp, Duodenum B) - Stomach, Antrum, bx C) - Biopsy, Gastric, gastric body D) - Biopsy, Esophagus, random THIS ADDENDUM IS ISSUED TO REPORT THE RESULT OF IMMUNOHISTOCHEMICAL STUDY FOR HELICOBACTER PYLORI OM SPECIMEN B: - NEGATIVE CPT CODE: [id number] electronically signed by Mara Barboza MD on [...] MALIGNANCY SEEN Signing Pathologist Direct Phone Line: [phone] signed by Mara Barboza MD on 03/17/2018 at 10:35 [id number] X 4; [id number] X 2A. Polyp, duodenum. B. Stomach antrum. [...] (BEAKER) (test 75 mg/dL 70-110 TESTED AT [facility] [address] [facility] vnhy=0774) [facility] [address] BLOOD [id number] 06:00:00 Test Item Value Reference Range Comments CULTURE (BEAKER) (test ddza=5170) No growth in 5 days BLOOD [id number] 06:00:00 Test Item Value Reference Range Comments CULTURE (BEAKER) (test dpqj=7933) No growth in 5 days POCT-GLUCOSE [id number] 12:32:00 Test Item Value Reference Range Comments POC-GLUCOSE METER (BEAKER) 217 mg/dL 70-110 TESTED AT [facility] [address] [facility] (test vdqx=2959) [facility] [address] POCT-GLUCOSE [id number] 08:36:00 Test Item Value Reference Range Comments POC-GLUCOSE METER (BEAKER) 92 mg/dL 70-110 TESTED AT [place] [id number] [facility] (test alay=0292) [facility] [address] COMPREHENSIVE METABOLIC [id number] 04:59:00 Test Item Value Reference Range Comments TOTAL PROTEIN (BEAKER) 5.2 gm/dL 6.0-8.3 (test yrkn=323) ALBUMIN (BEAKER) (test 3.0 g/dL 3.5-5.0 dhtu=3855) ALKALINE PHOSPHATASE 39 U/L 40-150 (BEAKER) (test ymwq=212) BILIRUBIN TOTAL (BEAKER) 0.4 mg/dL 0.2-1.2 (test hjfs=165) SODIUM (BEAKER) (test 145 meq/L 136-145 outu=352) POTASSIUM (BEAKER) (test 3.6 meq/L 3.5-5.1 zufg=205) CHLORIDE (BEAKER) (test 109 meq/L 98-107 vxsg=303) CO2 (BEAKER) (test 28 meq/L 22-29 lkxm=931) BLOOD UREA NITROGEN 8 mg/dL 7-21 (BEAKER) (test vrwf=646) CREATININE (BEAKER) (test 0.70 mg/dL 0.57-1.25 mwjz=748) GLUCOSE RANDOM (BEAKER) 107 mg/dL 70-105 (test tdtx=888) CALCIUM (BEAKER) (test 8.4 mg/dL 8.4-10.2 dfqu=126) AST (SGOT) (BEAKER) (test 9 U/L 5-34 fxhm=427) ALT (SGPT) (BEAKER) (test < U/L 6-55 alpd=892) EGFR (BEAKER) (test 81 mL/min/1.73 sq m ESTIMATED GFR IS NOT lpei=0846) ACCURATE CREATININE CLEARANCE IN PREDICTING GLOMERULAR FILTRATION RATE. ESTIMATED GFR IS NOT APPLICABLE FOR DIALYSIS PATIENTS. [id number] 04:50:00 Test Item Value Reference Range Comments MAGNESIUM (BEAKER) (test boen=044) 1.7 mg/dL 1.6-2.6 PROTHROMBIN [id number] 04:35:00 Test Item Value Reference Range Comments PROTIME (BEAKER) (test gdrd=373) 23.7 seconds 11.7-14.7 INR (BEAKER) (test ixvy=409) 2.1 <=5.9 RECOMMENDED COUMADIN/WARFARIN INR THERAPY RANGESSTANDARD DOSE: 2.0 - 3.0 Includes: PROPHYLAXIS forvenous thrombosis, systemic embolization; TREATMENT for venous thrombosis and/or pulmonary embolus.HIGH RISK: Target INR is 2.5-3.5 for patients with mechanical heart valves.CBC W/PLT COUNT & AUTO [id number] 04:24:00 Test Item Value Reference Range Comments WHITE BLOOD CELL COUNT (BEAKER) (test gcrl=060) 4.8 K/ L 3.5-10.5 RED BLOOD CELL COUNT (BEAKER) (test iukw=884) 3.28 M/ L 3.93-5.22 HEMOGLOBIN (BEAKER) (test qlwb=159) 10.4 GM/DL 11.2-15.7 HEMATOCRIT (BEAKER) (test gumf=530) 32.7 % 34.1-44.9 MEAN CORPUSCULAR VOLUME (BEAKER) (test ziqp=904) 99.7 fL 79.4-94.8 MEAN CORPUSCULAR HEMOGLOBIN (BEAKER) (test 31.7 pg 25.6-32.2 ffwm=780) MEAN CORPUSCULAR HEMOGLOBIN CONC (BEAKER) (test 31.8 GM/DL 32.2-35.5 dbbd=894) RED CELL DISTRIBUTION WIDTH (BEAKER) (test 14.7 % 11.7-14.4 htag=752) PLATELET COUNT (BEAKER) (test jqmd=713) 141 K/CU MM 150-450 MEAN PLATELET VOLUME (BEAKER) (test baie=448) 11.2 fL 9.4-12.3 NUCLEATED RED BLOOD CELLS (BEAKER) (test 0 /100 WBC 0-0 qhtb=273) NEUTROPHILS RELATIVE PERCENT (BEAKER) (test 67 % tful=924) LYMPHOCYTES RELATIVE PERCENT (BEAKER) (test 26 % qzfw=837) MONOCYTES RELATIVE PERCENT (BEAKER) (test 5 % tgwz=433) EOSINOPHILS RELATIVE PERCENT (BEAKER) (test 1 % xdiv=044) BASOPHILS RELATIVE PERCENT (BEAKER) (test 0 % yspp=411) NEUTROPHILS ABSOLUTE COUNT (BEAKER) (test 3.21 K/ L 1.56-6.13 fpqw=034) LYMPHOCYTES ABSOLUTE COUNT (BEAKER) (test 1.24 K/ L 1.18-3.74 tyyo=810) MONOCYTES ABSOLUTE COUNT (BEAKER) (test 0.23 K/ L 0.24-0.36 phka=712) EOSINOPHILS ABSOLUTE COUNT (BEAKER) (test 0.06 K/ L 0.04-0.36 epee=401) BASOPHILS ABSOLUTE COUNT (BEAKER) (test 0.02 K/ L 0.01-0.08 pvhx=204) IMMATURE GRANULOCYTES-RELATIVE PERCENT (BEAKER) 1 % 0-1 (test iydf=9879) POCT-GLUCOSE [id number] 22:13:00 Test Item Value Reference Range Comments POC-GLUCOSE METER (BEAKER) 194 mg/dL 70-110 TESTED AT [address] (test epsf=4170) [place] [address] POCT-GLUCOSE [id number] 18:14:00 Test Item Value Reference Range Comments POC-GLUCOSE METER (BEAKER) 195 mg/dL 70-110 TESTED AT [address] (test hytr=4054) [place] [address] POCT-GLUCOSE [id number] 12:20:00 Test Item Value Reference Range Comments POC-GLUCOSE METER (BEAKER) 224 mg/dL 70-110 TESTED AT [address] (test ralb=0330) [place] [address] [id number] 08:55:00 Test Item Value Reference Range Comments LIPASE (BEAKER) (test mgwz=037) 471 U/L 8-78 POCT-GLUCOSE [id number] 08:12:00 Test Item Value Reference Range Comments POC-GLUCOSE METER (BEAKER) 128 mg/dL 70-110 TESTED AT [address] (test dccx=4912) [place] [address] [id number] 04:12:00 Test Item Value Reference Range Comments T3 TOTAL (BEAKER) (test saud=394) 41 ng/dL 48-159 T3, [id number] 04:11:00 Test Item Value Reference Range Comments T3 FREE (BEAKER) (test agen=823) 1.31 pg/mL 1.71-3.71 COMPREHENSIVE METABOLIC [id number] 04:01:00 Test Item Value Reference Range Comments TOTAL PROTEIN (BEAKER) 4.8 gm/dL 6.0-8.3 (test zndc=140) ALBUMIN (BEAKER) (test 2.8 g/dL 3.5-5.0 ocqa=7021) ALKALINE PHOSPHATASE 33 U/L 40-150 (BEAKER) (test ibqa=359) BILIRUBIN TOTAL (BEAKER) 0.4 mg/dL 0.2-1.2 (test jguc=816) SODIUM (BEAKER) (test 143 meq/L 136-145 dlae=481) POTASSIUM (BEAKER) (test 4.0 meq/L 3.5-5.1 bhth=953) CHLORIDE (BEAKER) (test 110 meq/L 98-107 iuvh=546) CO2 (BEAKER) (test 26 meq/L 22-29 ilei=138) BLOOD UREA NITROGEN 9 mg/dL 7-21 (BEAKER) (test ldmr=046) CREATININE (BEAKER) (test 0.73 mg/dL 0.57-1.25 junj=993) GLUCOSE RANDOM (BEAKER) 213 mg/dL 70-105 (test rmef=439) CALCIUM (BEAKER) (test 8.2 mg/dL 8.4-10.2 oapk=339) AST (SGOT) (BEAKER) (test 8 U/L 5-34 hrpx=756) ALT (SGPT) (BEAKER) (test < U/L 6-55 jgwg=017) EGFR (BEAKER) (test 77 mL/min/1.73 sq m ESTIMATED GFR IS NOT zwxm=9827) ACCURATE CREATININE CLEARANCE IN PREDICTING GLOMERULAR FILTRATION RATE. ESTIMATED GFR IS NOT APPLICABLE FOR DIALYSIS PATIENTS. [id number] 03:54:00 Test Item Value Reference Range Comments MAGNESIUM (BEAKER) (test vkxz=994) 1.7 mg/dL 1.6-2.6 PROTHROMBIN [id number] 03:53:00 Test Item Value Reference Range Comments PROTIME (BEAKER) (test rdyu=307) 22.4 seconds 11.7-14.7 INR (BEAKER) (test zdoa=229) 2.0 <=5.9 RECOMMENDED COUMADIN/WARFARIN INR THERAPY RANGESSTANDARD DOSE: 2.0 - 3.0 Includes: PROPHYLAXIS forvenous thrombosis, systemic embolization; TREATMENT for venous thrombosis and/or pulmonary embolus.HIGH RISK: Target INR is 2.5-3.5 for patients with mechanical heart valves.CBC W/PLT COUNT & AUTO [id number] 03:46:00 Test Item Value Reference Range Comments WHITE BLOOD CELL COUNT (BEAKER) (test snsu=704) 5.3 K/ L 3.5-10.5 RED BLOOD CELL COUNT (BEAKER) (test kofk=641) 3.04 M/ L 3.93-5.22 HEMOGLOBIN (BEAKER) (test nsii=624) 9.7 GM/DL 11.2-15.7 HEMATOCRIT (BEAKER) (test gzhn=070) 30.6 % 34.1-44.9 MEAN CORPUSCULAR VOLUME (BEAKER) (test okkc=991) 100.7 fL 79.4-94.8 MEAN CORPUSCULAR HEMOGLOBIN (BEAKER) (test 31.9 pg 25.6-32.2 vrxz=969) MEAN CORPUSCULAR HEMOGLOBIN CONC (BEAKER) (test 31.7 GM/DL 32.2-35.5 sexa=722) RED CELL DISTRIBUTION WIDTH (BEAKER) (test 14.6 % 11.7-14.4 zjgn=100) PLATELET COUNT (BEAKER) (test ftqd=569) 135 K/CU MM 150-450 MEAN PLATELET VOLUME (BEAKER) (test ddbp=475) 11.4 fL 9.4-12.3 NUCLEATED RED BLOOD CELLS (BEAKER) (test 0 /100 WBC 0-0 fxvl=584) NEUTROPHILS RELATIVE PERCENT (BEAKER) (test 76 % wcrz=750) LYMPHOCYTES RELATIVE PERCENT (BEAKER) (test 19 % rcfz=111) MONOCYTES RELATIVE PERCENT (BEAKER) (test 3 % hdik=324) EOSINOPHILS RELATIVE PERCENT (BEAKER) (test 0 % qvwc=099) BASOPHILS RELATIVE PERCENT (BEAKER) (test 0 % jdbl=905) NEUTROPHILS ABSOLUTE COUNT (BEAKER) (test 4.02 K/ L 1.56-6.13 lxmn=421) LYMPHOCYTES ABSOLUTE COUNT (BEAKER) (test 1.01 K/ L 1.18-3.74 gxld=926) MONOCYTES ABSOLUTE COUNT (BEAKER) (test 0.15 K/ L 0.24-0.36 mwcg=546) EOSINOPHILS ABSOLUTE COUNT (BEAKER) (test 0.01 K/ L 0.04-0.36 tcjn=621) BASOPHILS ABSOLUTE COUNT (BEAKER) (test 0.01 K/ L 0.01-0.08 obdr=415) IMMATURE GRANULOCYTES-RELATIVE PERCENT (BEAKER) 1 % 0-1 (test azqt=6348) POCT-GLUCOSE [id number] 22:34:00 Test Item Value Reference Range Comments POC-GLUCOSE METER (BEAKER) 252 mg/dL 70-110 TESTED AT [facility] [address] [facility] (test ucnw=1831) [facility] [address] [id number] 19:36:00 Test Item Value Reference Range Comments MAGNESIUM (BEAKER) (test ryam=813) 1.6 mg/dL 1.6-2.6 BASIC METABOLIC [id number] 19:36:00 Test Item Value Reference Range Comments SODIUM (BEAKER) (test 143 meq/L 136-145 tual=018) POTASSIUM (BEAKER) (test 4.1 meq/L 3.5-5.1 jkps=082) CHLORIDE (BEAKER) (test 109 meq/L 98-107 xfxg=477) CO2 (BEAKER) (test 24 meq/L 22-29 smdq=122) BLOOD UREA NITROGEN 9 mg/dL 7-21 (BEAKER) (test qgju=566) CREATININE (BEAKER) (test 0.74 mg/dL 0.57-1.25 cwht=625) GLUCOSE RANDOM (BEAKER) 249 mg/dL 70-105 (test kdjz=684) CALCIUM (BEAKER) (test 8.1 mg/dL 8.4-10.2 ysbh=453) EGFR (BEAKER) (test 76 mL/min/1.73 sq m ESTIMATED GFR IS NOT vjrw=4115) ACCURATE CREATININE CLEARANCE IN PREDICTING GLOMERULAR FILTRATION RATE. ESTIMATED GFR IS NOT APPLICABLE FOR DIALYSIS PATIENTS. URINE [id number] 11:51:00 Test Item Value Reference Range Comments CULTURE (BEAKER) (test vtza=9422) No growth POCT-GLUCOSE [id number] 11:42:00 Test Item Value Reference Range Comments POC-GLUCOSE METER (BEAKER) 205 mg/dL 70-110 TESTED AT [address] (test ejeo=9379) [facility] [address] POCT-GLUCOSE [id number] 08:08:00 Test Item Value Reference Range Comments POC-GLUCOSE METER (BEAKER) 119 mg/dL 70-110 TESTED AT [address] (test ufzs=9407) [place] [id number] C. DIFFICILE GDH [id number] 07:40:00 Test Item Value Reference Range Comments CDT TOXIN (test Negative Negative bfsx=[id number]) CDT GDH ANTIGEN (test Positive Negative C. difficile present but toxin xbal=[id number]) not detected. Indicates colonization with non-toxigenic strain or level of toxin below detectable levels. No need for enteric isolation. Treatment is rarely needed (only when strong clinical suspicion for Clostridium difficile infection) Testing performed by [employer] Rapid [employer] Assay. For GDH, published sensitivity of the assay is 98.7% compared to cytotoxicity testing. For Toxin AB, published sensitivity is 87.8% and specificity 99.4% compared to cytotoxicity testing.Verification of kit performance was done by the [facility] Microbiology Lab prior to clinical use.POCT-GLUCOSE [id number] 06:37:00 Test Item Value Reference Range Comments POC-GLUCOSE METER (BEAKER) 141 mg/dL 70-110 TESTED AT [address] (test xkcs=0947) [facility] [address] COMPREHENSIVE METABOLIC [id number] 04:48:00 Test Item Value Reference Range Comments TOTAL PROTEIN (BEAKER) 4.7 gm/dL 6.0-8.3 (test jwwh=033) ALBUMIN (BEAKER) (test 2.7 g/dL 3.5-5.0 shsz=8581) ALKALINE PHOSPHATASE 33 U/L 40-150 (BEAKER) (test jgfv=875) BILIRUBIN TOTAL (BEAKER) 0.4 mg/dL 0.2-1.2 (test dsbz=962) SODIUM (BEAKER) (test 145 meq/L 136-145 zpyz=093) POTASSIUM (BEAKER) (test 3.7 meq/L 3.5-5.1 klcc=743) CHLORIDE (BEAKER) (test 110 meq/L 98-107 vfqj=880) CO2 (BEAKER) (test 28 meq/L 22-29 mqiz=456) BLOOD UREA NITROGEN 11 mg/dL 7-21 (BEAKER) (test xtfx=825) CREATININE (BEAKER) (test 0.74 mg/dL 0.57-1.25 ykey=968) GLUCOSE RANDOM (BEAKER) 137 mg/dL 70-105 (test zjrk=447) CALCIUM (BEAKER) (test 8.2 mg/dL 8.4-10.2 ubmm=769) AST (SGOT) (BEAKER) (test 8 U/L 5-34 coca=725) ALT (SGPT) (BEAKER) (test < U/L 6-55 uzgv=768) EGFR (BEAKER) (test 76 mL/min/1.73 sq m ESTIMATED GFR IS NOT uray=1342) ACCURATE CREATININE CLEARANCE IN PREDICTING GLOMERULAR FILTRATION RATE. ESTIMATED GFR IS NOT APPLICABLE FOR DIALYSIS PATIENTS. PROTHROMBIN [id number] 04:40:00 Test Item Value Reference Range Comments PROTIME (BEAKER) (test npdb=917) 23.8 seconds 11.7-14.7 INR (BEAKER) (test czlt=293) 2.1 <=5.9 RECOMMENDED COUMADIN/WARFARIN INR THERAPY RANGESSTANDARD DOSE: 2.0 - 3.0 Includes: PROPHYLAXIS forvenous thrombosis, systemic embolization; TREATMENT for venous thrombosis and/or pulmonary embolus.HIGH RISK: Target INR is 2.5-3.5 for patients with mechanical heart valves.While on warfarin.[id number] 04:29:00 Test Item Value Reference Range Comments MAGNESIUM (BEAKER) (test vmvz=298) 2.0 mg/dL 1.6-2.6 CBC W/PLT COUNT & AUTO [id number] 04:11:00 Test Item Value Reference Range Comments WHITE BLOOD CELL COUNT (BEAKER) (test vuqi=786) 5.8 K/ L 3.5-10.5 RED BLOOD CELL COUNT (BEAKER) (test oium=028) 3.18 M/ L 3.93-5.22 HEMOGLOBIN (BEAKER) (test ihre=637) 10.0 GM/DL 11.2-15.7 HEMATOCRIT (BEAKER) (test gsih=251) 31.8 % 34.1-44.9 MEAN CORPUSCULAR VOLUME (BEAKER) (test rgqt=921) 100.0 fL 79.4-94.8 MEAN CORPUSCULAR HEMOGLOBIN (BEAKER) (test 31.4 pg 25.6-32.2 ijpy=342) MEAN CORPUSCULAR HEMOGLOBIN CONC (BEAKER) (test 31.4 GM/DL 32.2-35.5 rbmz=986) RED CELL DISTRIBUTION WIDTH (BEAKER) (test 14.9 % 11.7-14.4 krrq=106) PLATELET COUNT (BEAKER) (test cgzl=015) 141 K/CU MM 150-450 MEAN PLATELET VOLUME (BEAKER) (test fwws=444) 11.3 fL 9.4-12.3 NUCLEATED RED BLOOD CELLS (BEAKER) (test 0 /100 WBC 0-0 gosi=854) NEUTROPHILS RELATIVE PERCENT (BEAKER) (test 71 % vybn=032) LYMPHOCYTES RELATIVE PERCENT (BEAKER) (test 23 % tnhx=868) MONOCYTES RELATIVE PERCENT (BEAKER) (test 4 % rnow=933) EOSINOPHILS RELATIVE PERCENT (BEAKER) (test 0 % cvyw=816) BASOPHILS RELATIVE PERCENT (BEAKER) (test 0 % txxv=317) NEUTROPHILS ABSOLUTE COUNT (BEAKER) (test 4.14 K/ L 1.56-6.13 btpe=027) LYMPHOCYTES ABSOLUTE COUNT (BEAKER) (test 1.34 K/ L 1.18-3.74 srpb=574) MONOCYTES ABSOLUTE COUNT (BEAKER) (test 0.23 K/ L 0.24-0.36 pldw=724) EOSINOPHILS ABSOLUTE COUNT (BEAKER) (test 0.02 K/ L 0.04-0.36 rnwl=638) BASOPHILS ABSOLUTE COUNT (BEAKER) (test 0.02 K/ L 0.01-0.08 xmfw=622) IMMATURE GRANULOCYTES-RELATIVE PERCENT (BEAKER) 1 % 0-1 (test viri=4978) POCT-GLUCOSE [id number] 22:19:00 Test Item Value Reference Range Comments POC-GLUCOSE METER (BEAKER) 266 mg/dL 70-110 TESTED AT [facility] [address] [facility] (test xvfd=7909) [facility] [address] [id number] 17:54:00 Test Item Value Reference Range Comments POTASSIUM (BEAKER) (test robe=042) 4.2 meq/L 3.5-5.1 [id number] 17:23:00 Test Item Value Reference Range Comments MAGNESIUM (BEAKER) (test mtei=974) 1.7 mg/dL 1.6-2.6 POCT-GLUCOSE [id number] 12:41:00 Test Item Value Reference Range Comments POC-GLUCOSE METER (BEAKER) 111 mg/dL 70-110 TESTED AT [address] (test gffb=5080) [place] [id number] [id number] 12:40:00 Test Item Value Reference Range Comments POTASSIUM (BEAKER) (test wwso=033) 3.5 meq/L 3.5-5.1 POCT-GLUCOSE [id number] 10:05:00 Test Item Value Reference Range Comments POC-GLUCOSE METER (BEAKER) 94 mg/dL 70-110 TESTED AT [address] (test yxcn=5195) [place] [address] COMPREHENSIVE METABOLIC [id number] 05:47:00 Test Item Value Reference Range Comments TOTAL PROTEIN (BEAKER) 4.7 gm/dL 6.0-8.3 (test rgjd=018) ALBUMIN (BEAKER) (test 2.7 g/dL 3.5-5.0 vebf=6655) ALKALINE PHOSPHATASE 31 U/L 40-150 (BEAKER) (test voqe=062) BILIRUBIN TOTAL (BEAKER) 0.5 mg/dL 0.2-1.2 (test lngo=605) SODIUM (BEAKER) (test 147 meq/L 136-145 vyav=578) POTASSIUM (BEAKER) (test 2.9 meq/L 3.5-5.1 azma=748) CHLORIDE (BEAKER) (test 110 meq/L 98-107 kokn=217) CO2 (BEAKER) (test 27 meq/L 22-29 jwtj=654) BLOOD UREA NITROGEN 10 mg/dL 7-21 (BEAKER) (test fuhs=475) CREATININE (BEAKER) (test 0.70 mg/dL 0.57-1.25 tetp=858) GLUCOSE RANDOM (BEAKER) 86 mg/dL 70-105 (test qmop=616) CALCIUM (BEAKER) (test 7.9 mg/dL 8.4-10.2 iazp=038) AST (SGOT) (BEAKER) (test 9 U/L 5-34 sxfh=223) ALT (SGPT) (BEAKER) (test < U/L 6-55 xvuh=724) EGFR (BEAKER) (test 81 mL/min/1.73 sq m ESTIMATED GFR IS NOT kksc=4948) ACCURATE CREATININE CLEARANCE IN PREDICTING GLOMERULAR FILTRATION RATE. ESTIMATED GFR IS NOT APPLICABLE FOR DIALYSIS PATIENTS. [id number] 05:44:00 Test Item Value Reference Range Comments MAGNESIUM (BEAKER) (test whuw=823) 2.0 mg/dL 1.6-2.6 PROTHROMBIN [id number] 05:37:00 Test Item Value Reference Range Comments PROTIME (BEAKER) (test mzvx=313) 24.0 seconds 11.7-14.7 INR (BEAKER) (test rcjy=040) 2.2 <=5.9 RECOMMENDED COUMADIN/WARFARIN INR THERAPY RANGESSTANDARD DOSE: 2.0 - 3.0 Includes: PROPHYLAXIS forvenous thrombosis, systemic embolization; TREATMENT for venous thrombosis and/or pulmonary embolus.HIGH RISK: Target INR is 2.5-3.5 for patients with mechanical heart valves.PROTHROMBIN TIME/[id number] 05:36: 00 Test Item Value Reference Range Comments PROTIME (BEAKER) (test erfi=525) 24.2 seconds 11.7-14.7 INR (BEAKER) (test rpwp=878) 2.2 <=5.9 RECOMMENDED COUMADIN/WARFARIN INR THERAPY RANGESSTANDARD DOSE: 2.0 - 3.0 Includes: PROPHYLAXIS forvenous thrombosis, systemic embolization; TREATMENT for venous thrombosis and/or pulmonary embolus.HIGH RISK: Target INR is 2.5-3.5 for patients with mechanical heart valves.While on warfarin.CBC W/PLT COUNT &amp ; AUTO [id number] 05:35:00 Test Item Value Reference Range Comments WHITE BLOOD CELL COUNT (BEAKER) (test qkuq=117) 4.3 K/ L 3.5-10.5 RED BLOOD CELL COUNT (BEAKER) (test yemx=608) 3.29 M/ L 3.93-5.22 HEMOGLOBIN (BEAKER) (test vcil=287) 10.3 GM/DL 11.2-15.7 HEMATOCRIT (BEAKER) (test freo=686) 33.2 % 34.1-44.9 MEAN CORPUSCULAR VOLUME (BEAKER) (test sjea=665) 100.9 fL 79.4-94.8 MEAN CORPUSCULAR HEMOGLOBIN (BEAKER) (test 31.3 pg 25.6-32.2 soog=517) MEAN CORPUSCULAR HEMOGLOBIN CONC (BEAKER) (test 31.0 GM/DL 32.2-35.5 tlbg=214) RED CELL DISTRIBUTION WIDTH (BEAKER) (test 14.9 % 11.7-14.4 mfux=224) PLATELET COUNT (BEAKER) (test ojyw=747) 138 K/CU MM 150-450 MEAN PLATELET VOLUME (BEAKER) (test pfui=610) 11.5 fL 9.4-12.3 NUCLEATED RED BLOOD CELLS (BEAKER) (test 0 /100 WBC 0-0 azuh=190) NEUTROPHILS RELATIVE PERCENT (BEAKER) (test 66 % rpig=108) LYMPHOCYTES RELATIVE PERCENT (BEAKER) (test 27 % jvqn=530) MONOCYTES RELATIVE PERCENT (BEAKER) (test 4 % mpdg=455) EOSINOPHILS RELATIVE PERCENT (BEAKER) (test 1 % udhx=546) BASOPHILS RELATIVE PERCENT (BEAKER) (test 0 % vsvn=965) NEUTROPHILS ABSOLUTE COUNT (BEAKER) (test 2.82 K/ L 1.56-6.13 dvvx=970) LYMPHOCYTES ABSOLUTE COUNT (BEAKER) (test 1.16 K/ L 1.18-3.74 yoet=212) MONOCYTES ABSOLUTE COUNT (BEAKER) (test 0.18 K/ L 0.24-0.36 ehbl=854) EOSINOPHILS ABSOLUTE COUNT (BEAKER) (test 0.06 K/ L 0.04-0.36 rmoj=141) BASOPHILS ABSOLUTE COUNT (BEAKER) (test 0.01 K/ L 0.01-0.08 ueay=979) IMMATURE GRANULOCYTES-RELATIVE PERCENT (BEAKER) 1 % 0-1 (test mrrf=8700) POCT-GLUCOSE [id number] 23:56:00 Test Item Value Reference Range Comments POC-GLUCOSE METER (BEAKER) 105 mg/dL 70-110 TESTED AT [facility] [address] (test ikdz=6473) [facility] [address] TROPONIN [id number] 13:02:00 Test Item Value Reference Range Comments TROPONIN I (BEAKER) (test ibfp=697) 0.02 ng/mL 0.00-0.03 Troponin I (TnI) levels [...] NATRIURETIC PEPTIDE (BEAKER) (test 975 pg/mL 0-100 ofad=437) POCT-GLUCOSE [id number] 12:18:00 Test Item Value Reference Range Comments POC-GLUCOSE METER (BEAKER) 175 mg/dL 70-110 TESTED AT [facility] [address] [facility] (test kmiu=2296) [facility] [address] U/S, ABDOMINAL, [id number] 10:23:00Abdomen limited area? Add comment if clarification [...] MDReport Verified Date/Time: 01/14/2018 10:23:02 Reading Location: [address] Ortho Consult Reading Room T4, [id number] 08:42 :00 Test Item Value Reference Range Comments FREE T4 (BEAKER) (test qsvv=410) 0.83 ng/dL 0.70-1.48 POCT-GLUCOSE [id number] 08:37:00 Test Item Value Reference Range Comments POC-GLUCOSE METER (BEAKER) 161 mg/dL 70-110 TESTED AT [facility] [address] [facility] (test addy=8720) [facility] [address] TSH/FREE T4 IF [id number] 08:05:00 Test Item Value Reference Range Comments THYROID STIMULATING HORMONE (BEAKER) (test 0.02 uIU/mL 0.35-4.94 qwqa=326) VITAMIN B12 AND [id number] 07:42:00 Test Item Value Reference Range Comments VITAMIN B12 (BEAKER) (test tivm=943) 1276 pg/mL 213-816 FOLATE (BEAKER) (test gtsh=115) 8.8 ng/mL >=7.0 LIPID [id number] 07:14:00 Test Item Value Reference Range Comments TRIGLYCERIDES (BEAKER) (test hzki=689) 171 mg/dL CHOLESTEROL (BEAKER) (test wnia=889) 123 mg/dL HDL CHOLESTEROL (BEAKER) (test czcv=718) 25 mg/dL LDL CHOLESTEROL CALCULATED (BEAKER) (test 64 mg/dL czbq=372) Triglyceride Reference Range: Low Risk <150 Borderline 150- 199 High Risk 200-499 Very High Risk >=500Cholesterol Reference Range: Low Risk <200 Borderline 200-239 High Risk > 240HDL Cholesterol Reference Range: Low Risk >=60 High Risk <40LDL Cholesterol Reference Range: Optimal <100 Near Optimal 100-129 Borderline 130-159 High 160-189 Very High >=190TROPONIN [id number] 07:12:00 Test Item Value Reference Range Comments TROPONIN I (BEAKER) (test zguo=739) 0.03 ng/mL 0.00-0.03 Troponin I (TnI) levels [...] acute neurological disease, and persistent tachyarrhythmia.URINALYSIS W/ [id number] 06: 35:00 Test Item Value Reference Range Comments COLOR (BEAKER) (test bmyc=229) Yellow CLARITY (BEAKER) (test qxpg=208) Clear SPECIFIC GRAVITY UA (BEAKER) (test ahuf=653) 1.043 1.001-1.035 PH UA (BEAKER) (test cshe=473) 6.5 5.0-8.0 PROTEIN UA (BEAKER) (test apss=404) 20 mg/dL Negative GLUCOSE UA (BEAKER) (test fqwb=756) 1000 mg/dL Negative KETONES UA (BEAKER) (test rrqt=255) Negative Negative BILIRUBIN UA (BEAKER) (test trer=652) Negative Negative BLOOD UA (BEAKER) (test kvgi=738) Trace Negative NITRITE UA (BEAKER) (test ltpk=560) Negative Negative LEUKOCYTE ESTERASE UA (BEAKER) (test etzn=389) Negative Negative UROBILINOGEN UA (BEAKER) (test yuor=107) 0.2 mg/dL 0.2-1.0 RBC UA (BEAKER) (test hqqf=370) 1 /HPF WBC UA (BEAKER) (test lakk=509) 3 /HPF BACTERIA (BEAKER) (test qqti=586) Rare SOURCE(BEAKER) (test shps=7389) Urine, Taylor [id number] 06:07:00 Test Item Value Reference Range Comments MAGNESIUM (BEAKER) (test qsee=432) 1.8 mg/dL 1.6-2.6 [id number] 05:32:00 Test Item Value Reference Range Comments MAGNESIUM (BEAKER) (test ppxx=864) 2.5 mg/dL 1.6-2.6 COMPREHENSIVE METABOLIC [id number] 05:32:00 Test Item Value Reference Range Comments TOTAL PROTEIN (BEAKER) 5.1 gm/dL 6.0-8.3 (test uabp=041) ALBUMIN (BEAKER) (test 2.9 g/dL 3.5-5.0 qfuc=1902) ALKALINE PHOSPHATASE 31 U/L 40-150 (BEAKER) (test opjx=920) BILIRUBIN TOTAL (BEAKER) 0.4 mg/dL 0.2-1.2 (test bkap=694) SODIUM (BEAKER) (test 145 meq/L 136-145 deqz=349) POTASSIUM (BEAKER) (test 4.0 meq/L 3.5-5.1 mmkt=672) CHLORIDE (BEAKER) (test 110 meq/L 98-107 csjv=727) CO2 (BEAKER) (test 28 meq/L 22-29 doyo=190) BLOOD UREA NITROGEN 14 mg/dL 7-21 (BEAKER) (test zigd=226) CREATININE (BEAKER) (test 0.71 mg/dL 0.57-1.25 elbv=055) GLUCOSE RANDOM (BEAKER) 187 mg/dL 70-105 (test ealc=124) CALCIUM (BEAKER) (test 8.1 mg/dL 8.4-10.2 zpdf=750) AST (SGOT) (BEAKER) (test 9 U/L 5-34 qeod=204) ALT (SGPT) (BEAKER) (test 6 U/L 6-55 pnzg=816) EGFR (BEAKER) (test 79 mL/min/1.73 sq m ESTIMATED GFR IS NOT vjjs=7384) ACCURATE CREATININE CLEARANCE IN PREDICTING GLOMERULAR FILTRATION RATE. ESTIMATED GFR IS NOT APPLICABLE FOR DIALYSIS PATIENTS. PROTHROMBIN [id number] 05:10:00 Test Item Value Reference Range Comments PROTIME (BEAKER) (test ndzr=098) 25.1 seconds 11.7-14.7 INR (BEAKER) (test uwem=925) 2.3 <=5.9 RECOMMENDED COUMADIN/WARFARIN INR THERAPY RANGESSTANDARD DOSE: 2.0 - 3.0 Includes: PROPHYLAXIS forvenous thrombosis, systemic embolization; TREATMENT for venous thrombosis and/or pulmonary embolus.HIGH RISK: Target INR is 2.5-3.5 for patients with mechanical heart valves.CBC W/PLT COUNT & AUTO [id number] 05:03:00 Test Item Value Reference Range Comments WHITE BLOOD CELL COUNT (BEAKER) (test afsf=573) 5.6 K/ L 3.5-10.5 RED BLOOD CELL COUNT (BEAKER) (test liny=678) 3.19 M/ L 3.93-5.22 HEMOGLOBIN (BEAKER) (test vlar=208) 10.1 GM/DL 11.2-15.7 HEMATOCRIT (BEAKER) (test cwrg=892) 31.5 % 34.1-44.9 MEAN CORPUSCULAR VOLUME (BEAKER) (test ufnr=609) 98.7 fL 79.4-94.8 MEAN CORPUSCULAR HEMOGLOBIN (BEAKER) (test 31.7 pg 25.6-32.2 kajs=117) MEAN CORPUSCULAR HEMOGLOBIN CONC (BEAKER) (test 32.1 GM/DL 32.2-35.5 zknb=145) RED CELL DISTRIBUTION WIDTH (BEAKER) (test 14.6 % 11.7-14.4 hdhz=825) PLATELET COUNT (BEAKER) (test qdvn=848) 141 K/CU MM 150-450 MEAN PLATELET VOLUME (BEAKER) (test kfux=498) 11.6 fL 9.4-12.3 NUCLEATED RED BLOOD CELLS (BEAKER) (test 0 /100 WBC 0-0 xabf=465) NEUTROPHILS RELATIVE PERCENT (BEAKER) (test 71 % frvx=383) LYMPHOCYTES RELATIVE PERCENT (BEAKER) (test 22 % dktz=594) MONOCYTES RELATIVE PERCENT (BEAKER) (test 5 % lhvt=950) EOSINOPHILS RELATIVE PERCENT (BEAKER) (test 0 % mvvl=107) BASOPHILS RELATIVE PERCENT (BEAKER) (test 0 % tfdb=093) NEUTROPHILS ABSOLUTE COUNT (BEAKER) (test 4.00 K/ L 1.56-6.13 aqqn=080) LYMPHOCYTES ABSOLUTE COUNT (BEAKER) (test 1.25 K/ L 1.18-3.74 drkm=596) MONOCYTES ABSOLUTE COUNT (BEAKER) (test 0.26 K/ L 0.24-0.36 cjjy=323) EOSINOPHILS ABSOLUTE COUNT (BEAKER) (test 0.02 K/ L 0.04-0.36 pkxf=690) BASOPHILS ABSOLUTE COUNT (BEAKER) (test 0.01 K/ L 0.01-0.08 nnbw=926) IMMATURE GRANULOCYTES-RELATIVE PERCENT (BEAKER) 1 % 0-1 (test tejq=8211) [id number] 02:52:00 Test Item Value Reference Range Comments PROCALCITONIN (BEAKER) (test xnxe=0047) 0.41 ng/mL <0.05 SEPSIS RISK (ng/mL)Low: 0.05-0.50Intermediate: 0.51-2.00High: & gt;=2.01LACTIC ACID, VENOUS, WHOLE [id number] 02:06:00 Test Item Value Reference Range Comments LACTATE BLOOD VENOUS (2) 1.3 mmol/L 0.5-2.2 Specimen slightly hemolyzed (BEAKER) (test lzwa=1531) Effective 01/07/2016: Units/Reference Range ChangeNew: 0.5-2.2 mmol/L Previous: 5 -20 mg/dLCOMPREHENSIVE METABOLIC [id number] 02:06:00 Test Item Value Reference Range Comments TOTAL PROTEIN (BEAKER) 5.2 gm/dL 6.0-8.3 (test kjqi=577) ALBUMIN (BEAKER) (test 3.0 g/dL 3.5-5.0 sxhh=1418) ALKALINE PHOSPHATASE 31 U/L 40-150 (BEAKER) (test uyds=784) BILIRUBIN TOTAL (BEAKER) 0.4 mg/dL 0.2-1.2 (test awll=445) SODIUM (BEAKER) (test 143 meq/L 136-145 vsqe=563) POTASSIUM (BEAKER) (test 2.9 meq/L 3.5-5.1 brjz=403) CHLORIDE (BEAKER) (test 109 meq/L 98-107 ybzf=721) CO2 (BEAKER) (test 27 meq/L 22-29 jpjj=095) BLOOD UREA NITROGEN 15 mg/dL 7-21 (BEAKER) (test zztf=439) CREATININE (BEAKER) (test 0.70 mg/dL 0.57-1.25 adeb=499) GLUCOSE RANDOM (BEAKER) 215 mg/dL 70-105 (test ggeu=666) CALCIUM (BEAKER) (test 7.9 mg/dL 8.4-10.2 fosl=670) AST (SGOT) (BEAKER) (test 10 U/L 5-34 tlcl=014) ALT (SGPT) (BEAKER) (test 7 U/L 6-55 fthl=467) EGFR (BEAKER) (test 81 mL/min/1.73 sq m ESTIMATED GFR IS NOT whoe=5102) ACCURATE CREATININE CLEARANCE IN PREDICTING GLOMERULAR FILTRATION RATE. ESTIMATED GFR IS NOT APPLICABLE FOR DIALYSIS PATIENTS. [id number] 02:04:00 Test Item Value Reference Range Comments LIPASE (BEAKER) (test rrnz=658) 730 U/L 8-78 [id number] 02:04:00 Test Item Value Reference Range Comments AMYLASE (BEAKER) (test cgea=514) 226 U/L 25-125 PROTHROMBIN TIME/[id number] 01:45:00 Test Item Value Reference Range Comments PROTIME (BEAKER) (test btde=878) 23.9 seconds 11.7-14.7 INR (BEAKER) (test ycoj=733) 2.1 <=5.9 RECOMMENDED COUMADIN/WARFARIN INR THERAPY RANGESSTANDARD DOSE: 2.0 - 3.0 Includes: PROPHYLAXIS forvenous thrombosis, systemic embolization; TREATMENT for venous thrombosis and/or pulmonary embolus.HIGH RISK: Target INR is 2.5-3.5 for patients with mechanical heart valves.[id number] 01:45:00 Test Item Value Reference Range Comments PARTIAL THROMBOPLASTIN TIME (BEAKER) (test 32.4 seconds 22.5-36.0 mhmh=571) CBC W/PLT COUNT & AUTO [id number] 01:38:00 Test Item Value Reference Range Comments WHITE BLOOD CELL COUNT (BEAKER) (test sgev=674) 4.9 K/ L 3.5-10.5 RED BLOOD CELL COUNT (BEAKER) (test sqeq=977) 3.21 M/ L 3.93-5.22 HEMOGLOBIN (BEAKER) (test zowq=175) 10.2 GM/DL 11.2-15.7 HEMATOCRIT (BEAKER) (test qzxt=220) 31.6 % 34.1-44.9 MEAN CORPUSCULAR VOLUME (BEAKER) (test srxw=662) 98.4 fL 79.4-94.8 MEAN CORPUSCULAR HEMOGLOBIN (BEAKER) (test 31.8 pg 25.6-32.2 pqsx=681) MEAN CORPUSCULAR HEMOGLOBIN CONC (BEAKER) (test 32.3 GM/DL 32.2-35.5 adfx=334) RED CELL DISTRIBUTION WIDTH (BEAKER) (test 14.4 % 11.7-14.4 kifg=275) PLATELET COUNT (BEAKER) (test muxf=687) 137 K/CU MM 150-450 MEAN PLATELET VOLUME (BEAKER) (test hqgu=247) 11.9 fL 9.4-12.3 NUCLEATED RED BLOOD CELLS (BEAKER) (test 0 /100 WBC 0-0 ssmh=226) NEUTROPHILS RELATIVE PERCENT (BEAKER) (test 76 % ssno=760) LYMPHOCYTES RELATIVE PERCENT (BEAKER) (test 19 % ronm=027) MONOCYTES RELATIVE PERCENT (BEAKER) (test 4 % hyzy=896) EOSINOPHILS RELATIVE PERCENT (BEAKER) (test 0 % iolh=187) BASOPHILS RELATIVE PERCENT (BEAKER) (test 0 % zapp=453) NEUTROPHILS ABSOLUTE COUNT (BEAKER) (test 3.73 K/ L 1.56-6.13 wnqf=817) LYMPHOCYTES ABSOLUTE COUNT (BEAKER) (test 0.92 K/ L 1.18-3.74 hwlt=203) MONOCYTES ABSOLUTE COUNT (BEAKER) (test 0.21 K/ L 0.24-0.36 naqc=486) EOSINOPHILS ABSOLUTE COUNT (BEAKER) (test 0.00 K/ L 0.04-0.36 kksb=026) BASOPHILS ABSOLUTE COUNT (BEAKER) (test 0.01 K/ L 0.01-0.08 qryh=008) IMMATURE GRANULOCYTES-RELATIVE PERCENT (BEAKER) 1 % 0-1 (test oade=8348)
[2018-10-08] MEDS ORDERED: HYDROCORTISONE SUC 100 MG INJ ONE (09:13)
[2018-10-08 09:23] LABS: Absolute Lymphocytes (CBC) 2.1 K/uL (0.7-4.9); Absolute Monocytes 0.4 K/uL (0.1-1.3); Absolute Neutrophil 1.9 K/uL (1.8-8.0); Basophils % 0.4 % (0-1.3); Eosinophils % 1.8 % (0-4.4); Hematocrit 37.5 % (36.0-45.0); Lymphocytes % 46.1 % (15.3-44.8); MPV 10.3 fL (7.6-11.3); Monocytes % 8.3 % (3.3-12.3); RBC Red Blood Cell Count 4.09 M/uL (3.86-4.86)
[2018-10-08 09:32] LABS: Protime INR 1.54
[2018-10-08 09:43] LABS: ALT/SGPT 16 U/L (12-78); AST/SGOT 12 U/L (15-37); Albumin 3.3 g/dL (3.4-5.0); Alkaline Phosphatase 58 U/L (45-117); BUN Blood Urea Nitrogen 17 mg/dL (7-18); Bicarbonate 25 mmol/L (21-32); Bilirubin Direct 0.1 mg/dL (0-0.2); Bilirubin Total 0.6 mg/dL (0.2-1.0); Glucose Level 77 mg/dL (74-106); Lipase 258 U/L (73-393); Magnesium 1.6 mg/dL (1.8-2.4); NT PRO-BNP 482 pg/mL (<450); Potassium 3.3 mmol/L (3.5-5.1); Protein, Total 6.1 g/dL (6.4-8.2); Sodium Level 147 mmol/L (136-145); Troponin (Emerg Dept Use Only) < 0.02 ng/mL (0.0-0.045)
[2018-10-08] MEDS ORDERED: MAGNESIUM SULFATE 1 gm IVPB 1 GM/100 ML BAG IV ONE (10:19)
[2018-10-08] MEDS ORDERED: POTASSIUM 25 MEQ EFFERV TAB ONE (10:19)
[2018-10-08] MEDS ORDERED: WARFARIN SODIUM 5 MG TAB ONE (10:19)
--- NOTE | 2018-10-08 10:45 | ER ---
Nurse's Notes [facility] Name: Emelia Payan Age: 78 yrs Sex: Female : 1940 Arrival Date: 10/08/2018 Time: 07:54 Bed 5 Private MD: Dany Iraheta Diagnosis: Chest pain, unspecified;Hypomagnesemia;Hypokalemia;Anxiety disorder, unspecified;Urinary tract infection, site not specified Presentation: 10/08 08:06 Presenting complaint: Patient states: was discharged from hospital yesterday for iw anxiety, last night started to feel very anxious, started pacing back and forth, couldn't sleep, feels like someone is choking her, like she can't get enough air. Transition of care: patient was not received from another setting of care. Onset of symptoms was October 08, 2018. Risk Assessment: Do you want to hurt yourself or someone else? Patient reports no desire to harm self or others. Initial Sepsis Screen: Does the patient meet any 2 criteria? No. Patient's initial sepsis screen is negative. Does the patient have a suspected source of infection? No. Patient's initial sepsis screen is negative. Care prior to arrival: None. 08:06 Method Of Arrival: Wheelchair iw 08:06 Acuity: EDIS 3 iw Triage Assessment: 11:35 General: Appears in no apparent distress. Behavior is calm, cooperative. iw 11:35 Pain: Denies pain. iw Historical: - Allergies: 08:13 Cipro; iw 08:13 Xarelto; iw - Home Meds: 08:13 hydrocortisone 10 mg Oral tab 2 tabs twice a day [Active]; Omnitrope 5 mg/1.5 mL (3.3 iw mg/mL) subcutaneous crtg once daily [Active]; Vitamin D3 5,000 unit oral tab twice a day [Active]; levothyroxine 112 mcg tab 1 tab once daily [Active]; glipizide 2.5 mg Oral tr24 one tab M, W, F [Active]; liothyronine 5 mcg Oral tab 1 tab once daily [Active]; amlodipine 5 mg tab 1 tab once daily [Active]; warfarin 3 mg Oral tab 1 tab once daily [Active]; sotalol 160 mg Oral tab 1 tab 2 times per day [Active]; lorazepam 0.5 mg Oral tab 1 tab BID PRN for Anxiety [Active]; fenofibrate oral 48 mg oral once daily [Active]; losartan 100 mg Oral tab 1 tab once daily [Active]; Creon 36,000-114,000- 180,000 unit oral cpDR 1 cap 3 times per day [Active]; Dexilant 60 mg oral CpDB 1 cap once daily [Active]; - PMHx: 08:13 adrenal insuficiency; Anxiety; Atrial Fib; CHF; Diabetes - IDDM; DVT; Hyperlipidemia; iw Hypertension; Hypothyroidism; Pancreatitis; - Immunization history:: Adult Immunizations up to date. - Social history:: Smoking status: Patient/guardian denies using tobacco. - Ebola Screening: : Patient negative for fever greater than or equal to 101.5 degrees Fahrenheit, and additional compatible Ebola Virus Disease symptoms Patient denies exposure to infectious person Patient denies travel to an Ebola-affected area in the 21 days before illness onset No symptoms or risks identified at this time. - Family history:: not pertinent. Screenin:34 Abuse screen: Denies threats or abuse. Denies injuries from another. Nutritional iw screening: No deficits noted. Tuberculosis screening: No symptoms or risk factors identified. Fall Risk None identified. Assessment: 08:30 General: Appears in no apparent distress. comfortable, Behavior is cooperative, bp appropriate for age, anxious. Pain: Denies pain. Neuro: Level of Consciousness is awake, alert, obeys commands, Oriented to person, place, time, situation, Appropriate for age. Cardiovascular: Rhythm is sinus rhythm. Respiratory: Airway is patent Respiratory effort is even, unlabored, Respiratory pattern is regular, symmetrical. GI: No signs and/or symptoms were reported involving the gastrointestinal system. : No signs and/or symptoms were reported regarding the genitourinary system. EENT: No deficits noted. Derm: No deficits noted. Musculoskeletal: Circulation, motion, and sensation intact. Range of motion: intact in all extremities. 10:00 Reassessment: ALL CURRENT ORDERS COMPLETED, DISPO PENDING. bp 11:33 Reassessment: PT D/C HOME VIA W/C WITH FAMILY, DX WITH UTI AND ANXIETY. bp 11:34 Reassessment: Patient appears in no apparent distress at this time. Patient and/or iw family updated on plan of care and expected duration. Pain level reassessed. Patient is alert, oriented x 3, equal unlabored respirations, skin warm/dry/pink. Patient states feeling better. Patient states symptoms have improved. Vital Signs: 08:13 BP 166 / 82; Pulse 78; Resp 16 S; Pulse Ox 99% on R/A; Weight 75.75 kg; Height 5 ft. 4 iw in. (162.56 cm); 10:04 BP 157 / 71; Pulse 66; Resp 14; Pulse Ox 99% ; bp 08:13 Body Mass Index 28.67 (75.75 kg, 162.56 cm) iw ED Course: 07:54 Patient arrived in ED. mr 07:54 Dany Iraheta DO is Private Physician. mr 08:07 Bartolo Hays, RN is Primary Nurse. bp 08:08 Triage completed. iw 08:12 Jose Elias Marquez MD is Attending Physician. gilberto 08:14 Arm band placed on. iw 08:30 EKG done, by ED staff, reviewed by Jose Elias Marquez MD. 5 09:06 XRAY Chest (1 view) In Process Unspecified. EDMS 09:12 Inserted saline lock: 22 gauge forearm, using aseptic technique. Blood collected. bp 10:44 Dany Iraheta DO is Referral Physician. gilberto 10:44 Heladio Diaz MD is Referral Physician. gilberto 11:34 Patient has correct armband on for positive identification. iw 11:34 No provider procedures requiring assistance completed. IV discontinued, intact, iw bleeding controlled, No redness/swelling at site. Pressure dressing applied. Administered Medications: 09:11 Drug: Solu-CORTEF 100 mg Route: IVP; Site: right forearm; bp 10:03 Follow up: Response: No adverse reaction bp 10:16 Drug: Magnesium Sulfate 1 grams Route: IVPB; Infused Over: 1 hrs; Site: right jl7 antecubital; 11:19 Follow up: IV Status: Completed infusion bp 10:17 Drug: Coumadin 5 mg Route: PO; jl7 11:18 Follow up: Response: No adverse reaction bp 10:17 Drug: Potassium Effervescent Tablet 25 mEq Route: PO; jl7 11:17 Follow up: Response: No adverse reaction bp 11:18 Drug: Rocephin - (cefTRIAXone) 1 grams Route: IVPB; Infused Over: 30 mins; Site: right bp antecubital; 11:18 Follow up: IV Status: Completed infusion; IV Intake: 50ml bp Intake: 11:18 IV: 50ml; Total: 50ml. bp Outcome: 10:44 Discharge ordered by . gilberto 11:34 Discharged to home via wheelchair, with family. iw 11:34 Condition: good 11:34 Condition: good 11:34 Discharge instructions given to patient, family, Instructed on discharge instructions, follow up and referral plans. medication usage, Demonstrated understanding of instructions, follow-up care, medications, Prescriptions given X 3. 11:35 Patient left the ED. iw Signatures: Dispatcher [employer] EDAL Jose Elias Marquez MD MD cha Rivera, Mary mr Guerita Ray, RN RN Dottie Scanlon [facility] Taurus Nevarez RN RN 7 Bartolo Hays RN RN bp
--- NOTE | 2018-10-08 10:46 | EDPHYS ---
Physician Documentation [facility] Name: Emelia Payan Age: 78 yrs Sex: Female : 1940 Arrival Date: 10/08/2018 Time: 07:54 Bed 5 Private MD: Dany Iraheta ED Physician Jose Elias Marquez HPI: 10/08 08:36 This 78 yrs old Female presents to ER via Wheelchair with complaints of gilberto Anxiety. 08:36 The patient presents to the emergency department with anxiety. Onset: The gilberto symptoms/episode began/occurred 5 day(s) ago. The patient or guardian reports chest pain that is located primarily in the anterior chest wall, bilaterally. Onset: 3 week(s) ago. The pain does not radiate. Associated signs and symptoms: The patient has no apparent associated signs or symptoms. The chest pain is described as a heaviness, a pressure. Historical: - Allergies: 08:13 Cipro; iw 08:13 Xarelto; iw - Home Meds: 08:13 hydrocortisone 10 mg Oral tab 2 tabs twice a day [Active]; Omnitrope 5 mg/1.5 mL (3.3 iw mg/mL) subcutaneous crtg once daily [Active]; Vitamin D3 5,000 unit oral tab twice a day [Active]; levothyroxine 112 mcg tab 1 tab once daily [Active]; glipizide 2.5 mg Oral tr24 one tab M, W, F [Active]; liothyronine 5 mcg Oral tab 1 tab once daily [Active]; amlodipine 5 mg tab 1 tab once daily [Active]; warfarin 3 mg Oral tab 1 tab once daily [Active]; sotalol 160 mg Oral tab 1 tab 2 times per day [Active]; lorazepam 0.5 mg Oral tab 1 tab BID PRN for Anxiety [Active]; fenofibrate oral 48 mg oral once daily [Active]; losartan 100 mg Oral tab 1 tab once daily [Active]; Creon 36,000-114,000- 180,000 unit oral cpDR 1 cap 3 times per day [Active]; Dexilant 60 mg oral CpDB 1 cap once daily [Active]; - PMHx: 08:13 adrenal insuficiency; Anxiety; Atrial Fib; CHF; Diabetes - IDDM; DVT; Hyperlipidemia; iw Hypertension; Hypothyroidism; Pancreatitis; - Immunization history:: Adult Immunizations up to date. - Social history:: Smoking status: Patient/guardian denies using tobacco. - Ebola Screening: : Patient negative for fever greater than or equal to 101.5 degrees Fahrenheit, and additional compatible Ebola Virus Disease symptoms Patient denies exposure to infectious person Patient denies travel to an Ebola-affected area in the 21 days before illness onset No symptoms or risks identified at this time. - Family history:: not pertinent. ROS: 08:36 Constitutional: Negative for fever, chills, and weight loss, Eyes: Negative for injury, gilberto pain, redness, and discharge, ENT: Negative for injury, pain, and discharge, Neck: Negative for injury, pain, and swelling, Respiratory: Negative for shortness of breath, cough, wheezing, and pleuritic chest pain, Abdomen/GI: Negative for abdominal pain, nausea, vomiting, diarrhea, and constipation, Back: Negative for injury and pain, : Negative for injury, bleeding, discharge, and swelling, MS/Extremity: Negative for injury and deformity, Skin: Negative for injury, rash, and discoloration, Neuro: Negative for headache, weakness, numbness, tingling, and seizure, Allergy/Immunology: Negative for hives, rash, and allergies, Endocrine: Negative for neck swelling, polydipsia, polyuria, polyphagia, and marked weight changes, Hematologic/Lymphatic: Negative for swollen nodes, abnormal bleeding, and unusual bruising. 08:36 Cardiovascular: Positive for chest pain. 08:36 Psych: Positive for anxiety. Exam: 08:36 Constitutional: This is a well developed, well nourished patient who is awake, alert, gilberto and in no acute distress. Head/Face: Normocephalic, atraumatic. Eyes: Pupils equal round and reactive to light, extra-ocular motions intact. Lids and lashes normal. Conjunctiva and sclera are non-icteric and not injected. Cornea within normal limits. Periorbital areas with no swelling, redness, or edema. ENT: Nares patent. No nasal discharge, no septal abnormalities noted. Tympanic membranes are normal and external auditory canals are clear. Oropharynx with no redness, swelling, or masses, exudates, or evidence of obstruction, uvula midline. Mucous membranes moist. Neck: Trachea midline, no thyromegaly or masses palpated, and no cervical lymphadenopathy. Supple, full range of motion without nuchal rigidity, or vertebral point tenderness. No Meningismus. Chest/axilla: Normal chest wall appearance and motion. Nontender with no deformity. No lesions are appreciated. Cardiovascular: Regular rate and rhythm with a normal S1 and S2. No gallops, murmurs, or rubs. Normal PMI, no JVD. No pulse deficits. Respiratory: Lungs have equal breath sounds bilaterally, clear to auscultation and percussion. No rales, rhonchi or wheezes noted. No increased work of breathing, no retractions or nasal flaring. Abdomen/GI: Soft, non-tender, with normal bowel sounds. No distension or tympany. No guarding or rebound. No evidence of tenderness throughout. Back: No spinal tenderness. No costovertebral tenderness. Full range of motion. Female : Normal external genitalia. Skin: Warm, dry with normal turgor. Normal color with no rashes, no lesions, and no evidence of cellulitis. MS/ Extremity: Pulses equal, no cyanosis. Neurovascular intact. Full, normal range of motion. Neuro: Awake and alert, GCS 15, oriented to person, place, time, and situation. Cranial nerves II-XII grossly intact. Motor strength 5/5 in all extremities. Sensory grossly intact. Cerebellar exam normal. Normal gait. Psych: Awake, alert, with orientation to person, place and time. Behavior, mood, and affect are within normal limits. 08:36 Musculoskeletal/extremity: DVT Exam: No signs of deep vein thrombosis. no pain, no swelling, no tenderness, negative Homans' sign noted on exam, no appreciated bluish discoloration, no erythema, no increased warmth. Vital Signs: 08:13 BP 166 / 82; Pulse 78; Resp 16 S; Pulse Ox 99% on R/A; Weight 75.75 kg; Height 5 ft. 4 iw in. (162.56 cm); 10:04 BP 157 / 71; Pulse 66; Resp 14; Pulse Ox 99% ; bp 08:13 Body Mass Index 28.67 (75.75 kg, 162.56 cm) iw MDM: 08:12 Patient medically screened. [facility] 08:38 Data reviewed: vital signs, nurses notes, lab test result(s), EKG, radiologic studies, gilberto plain films. 10/08 08:36 Order name: Basic Metabolic Panel; Complete Time: 09:57 gilberto 10/08 08:36 Order name: CBC with Diff; Complete Time: 09:57 gilberto 10/08 08:36 Order name: LFT's; Complete Time: 09:57 gilberto 10/08 08:36 Order name: Magnesium; Complete Time: 09:57 gilberto 10/08 08:36 Order name: NT PRO-BNP; Complete Time: 09:57 gilberto 10/08 08:36 Order name: PT-INR; Complete Time: 09:57 [facility] 10/08 08:36 Order name: Troponin (emerg Dept Use Only); Complete Time: 09:57 gilberto 10/08 08:36 Order name: XRAY Chest (1 view) [facility] 10/08 08:36 Order name: D-Dimer; Complete Time: 09:57 [facility] 10/08 08:36 Order name: Lipase; Complete Time: 09:57 [facility] 10/08 08:36 Order name: Urine Culture [facility] 10/08 08:38 Order name: Cortisol; Complete Time: 10:41 [facility] 10/08 10:03 Order name: Urine Dipstick--Ancillary (enter results) 10/08 08:36 Order name: EKG; Complete Time: 08:37 [facility] 10/08 08:36 Order name: Cardiac monitoring; Complete Time: 08:42 [facility] 10/08 08:36 Order name: EKG - Nurse/Tech; Complete Time: 08:42 [facility] 10/08 08:36 Order name: IV Saline Lock; Complete Time: 08:58 [facility] 10/08 08:36 Order name: Labs collected and sent; Complete Time: 08:58 [facility] 10/08 08:36 Order name: O2 Per Protocol; Complete Time: 08:42 [facility] 10/08 08:36 Order name: O2 Sat Monitoring; Complete Time: 08:42 [facility] 10/08 08:36 Order name: Urine Dipstick-Ancillary (obtain specimen); Complete Time: 10:01 [facility] Administered Medications: 09:11 Drug: Solu-CORTEF 100 mg Route: IVP; Site: right forearm; bp 10:03 Follow up: Response: No adverse reaction bp 10:16 Drug: Magnesium Sulfate 1 grams Route: IVPB; Infused Over: 1 hrs; Site: right jl7 antecubital; 11:19 Follow up: IV Status: Completed infusion bp 10:17 Drug: Coumadin 5 mg Route: PO; jl7 11:18 Follow up: Response: No adverse reaction bp 10:17 Drug: Potassium Effervescent Tablet 25 mEq Route: PO; jl7 11:17 Follow up: Response: No adverse reaction bp 11:18 Drug: Rocephin - (cefTRIAXone) 1 grams Route: IVPB; Infused Over: 30 mins; Site: right bp antecubital; 11:18 Follow up: IV Status: Completed infusion; IV Intake: 50ml bp Disposition: 10/08/18 10:44 Discharged to Home. Impression: Chest pain, unspecified, Hypomagnesemia, Hypokalemia, Anxiety disorder, unspecified, Urinary tract infection, site not specified. - Condition is Stable. - Discharge Instructions: Panic Attacks, Nonspecific Chest Pain, Potassium Content of Foods, Dysuria, Hypomagnesemia, Nonspecific Chest Pain, Enoa-mm-Pcyz, Panic Attacks, Xaqo-bf-Htex, Hypokalemia. - Prescriptions for Coumadin 4 mg Oral Tablet - take 1 tablet by ORAL route once daily; 20 tablet. Klonopin 0.5 mg Oral Tablet - take 1 tablet by ORAL route every 12 hours As needed; 20 tablet. Bactrim DS 800- 160 mg Oral Tablet - take 1 tablet by ORAL route every 12 hours for 3 days; 6 tablet. - Medication Reconciliation Form, Thank You Letter, Antibiotic Education, Prescription Opioid Use form. - Follow up: Dany Iraheta; When: 2 - 3 days; Reason: Recheck today's complaints, Continuance of care, Re-evaluation by your physician. Follow up: Heladio Diaz; When: 2 - 3 days; Reason: Recheck today's complaints, Re-evaluation by your physician. - Problem is new. - Symptoms have improved. Signatures: Dispatcher [employer] EDVA Jose Elias Marquez MD MD cha Williams, Irene RN RN iw Taurus Nevarez RN RN jl7 Bartolo Hays RN RN bp Corrections: (The following items were deleted from the chart) 11:35 10:44 10/08/2018 10:44 Discharged to Home. Impression: Chest pain, unspecified; iw Hypomagnesemia; Hypokalemia; Anxiety disorder, unspecified; Urinary tract infection, site not specified. Condition is Stable. Discharge Instructions: Panic Attacks, Nonspecific Chest Pain, Potassium Content of Foods, Hypomagnesemia, Nonspecific Chest Pain, Nekm-ww-Cltn, Panic Attacks, Dnwm-sh-Owxe, Hypokalemia. Prescriptions for Coumadin 4 mg Oral Tablet - take 1 tablet by ORAL route once daily; 20 tablet, Klonopin 0.5 mg Oral Tablet - take 1 tablet by ORAL route every 12 hours As needed; 20 tablet. and Forms are Medication Reconciliation Form, Thank You Letter, Antibiotic Education, Prescription Opioid Use. Follow up: Dany Iraheta; When: 2 - 3 days; Reason: Recheck today's complaints, Continuance of care, Re-evaluation by your physician. Follow up: Heladio Diaz; When: 2 - 3 days; Reason: Recheck today's complaints, Re-evaluation by your physician. Problem is new. Symptoms have improved. gilberto
[2018-10-08] MEDS ORDERED: CEFTRIAXONE/SWI 1gm 1 GM/10 ML SYR ONE (10:55)
--- NOTE | 2018-10-08 11:06 | RAD REPORT ---
EXAM DESCRIPTION: RAD - Chest Single View - 10/08/2018 9:06 am CLINICAL HISTORY: CHEST PAIN Chest pain. COMPARISON: Chest Single View dated 10/06/2018; Chest Single View dated 09/27/2018; Chest Single View d ated 09/10/2018; Chest Single View dated 01/13/2018 FINDINGS: Portable technique limits examination quality. The lungs are grossly clear. The heart is normal in size. No displaced fractures. IMPRESSION: No acute intrathoracic process suspected.
[2018-10-08 11:49] VITALS: O2SAT 99
[2018-10-08 11:50] VITALS: BP 157/71
[2018-10-08 14:26] LABS: Urine Blood NEGATIVE (NEG); Urine Glucose NEGATIVE (NEG); Urine Protein NEGATIVE (NEG); Urine Specific Gravity 1.015 (1.005-1.030)
--- NOTE | 2018-10-09 07:24 | EKG ---
Test Date: 2018-10-08 Test Time: 08:22:53 Bindery Production Manager: SCARLET MEASUREMENT RESULTS: Intervals: Rate: 72 MO: 128 QRSD: 80 QT: 382 QTc: 418 [place]: P: 9 MO: 128 QRS: 10 T: 17 INTERPRETIVE STATEMENTS: Normal sinus rhythm with sinus arrhythmia Normal ECG Compared to ECG 10/06/2018 12:23:55 T-wave abnormality no longer present Electronically Signed On 10-09-18 07:21:38 CLASSIFIER OPERATOR by Geovany Metz
== END 2018-10-08 11:35 | disposition home or self-care (01) ==
LOC: ER 07:52
DX: E83.42 Hypomagnesemia (principal); E87.6 Hypokalemia; F41.9 Anxiety disorder, unspecified; N39.0 Urinary tract infection, site not specified; R07.9 Chest pain, unspecified; E03.9 Hypothyroidism, unspecified; E11.9 Type 2 diabetes mellitus without complications; E78.5 Hyperlipidemia, unspecified; E27.40 Unspecified adrenocortical insufficiency; I11.0 Hypertensive heart disease with heart failure; I50.9 Heart failure, unspecified; I48.91 Unspecified atrial fibrillation; Z79.84 Long term (current) use of oral hypoglycemic drugs; Z79.01 Long term (current) use of anticoagulants; Z79.899 Other long term (current) drug therapy; Z86.718 Personal history of other venous thrombosis and embolism
CPT/HCPCS: 36415; 71045; 80048; 80076; 81003; 82533; 83690; 83735; 83880; 84484; 85025; 85379; 85610; 87086; 87088; 93005; 99284; J0696; J1720; J3475

== ENCOUNTER 2018-10-26 11:36 | Emergency (ER) | payer OTHER ==
--- OUTSIDE RECORDS SUMMARY | 2018-10-26 11:40 | XMS REPORT | Clinical Summary ---
:1940 Author Organization [facility] Address [address] [place] [address] Care Team Providers Name Role Phone Unavailable [...] Marc Fernandez III, MD 03/14/2018 Surgery Gastroenterology [facility] UPPER ENDOSCOPY,BIOPSY [facility] 03/14/2018 Hospital Gastroenterology [facility] Encounter [facility] 03/13/2018 Hospital Pre-Admission Testing [facility] Encounter [facility] Diana, [facility] Preadmit Phone 01/13/2018 Hospital Intensive Care Samaria [...] Medicine Samaria Seals Tachycardia MD Natanael after 10/25/2017 Family History Medical History Relation Name Comments [...] CULTURE Routine 01/14/2018 1:26 AM CDT after 10/25/2017 Results REPORT OF PROCEDURE - ENDOSCOPY URL (03/14/2018 12:19 PM CDT) Narrative Performed At POC-Glucose meter (03/14/2018 11:55 AM CDT)Only the most recent of17 resultswithin the time period is included. POC-Glucose Meter 75Comment: TESTED AT 70 - 110 mg/dL [facility] [address] [facility] [address] Specimen Blood Performing Organization Address City/State/Zipcode Phone Number [place] [phone] [place], [place] [phone] CENTER Tissue Exam (03/14/2018 11:15 AM CDT) Case Report Surgical Pathology Report Case: [id number] [facility] Authorizing Provider:Luiz Hayesected: 03/14/2018 1115 [facility] Ordering Location: [facility] Endoscopy Received: 03/14/2018 1351 Services Pathologist: Mara Barboza MD Specimens: A) - Polyp, Duodenum B) - Stomach,Antrum, bx C) - Biopsy, Gastric, gastric body D) - Biopsy, Esophagus, random ADDENDUM THIS ADDENDUM IS ISSUED TO REPORT THE RESULT OF IMMUNOHISTOCHEMICAL STUDY FOR HELICOBACTER PYLORI OM SPECIMEN B: [facility] - NEGATIVE [facility] CPT CODE: 69146 DIAGNOSIS A. DUODENUM, ENDOSCOPIC POLYPECTOMY: [facility] - COMPATIBLE WITH PEPTIC DUODENITIS [facility] - NO FEATURES OF CELIAC DISEASE [...] MALIGNANCY SEEN Signing Pathologist Direct Phone Line: [phone] CPT Code(s) 94840 X 4; 70362 X 2 [facility] SPECIMEN SOURCE A. Polyp, duodenum. B. Stomach [facility] antrum. C. Biopsy, gastric, [facility] description gastric body. D. Biopsy, esophagus, description random GROSS DESCRIPTION Part A. Received in formalin, labeled "polyp, duodenum", is a 0.5 x 0.4 x 0.2 cm polypoid shaped brown-chavez fragment of soft tissue. The base is inked green, and the polyp is bisected and submitted entirely in one cassette (A1). [facility] Part B. Received in formalin labeled [...] diagnostic report above: [facility] WARTHIN-STARRY X 2 [facility] Specimen Tissue - Polyp, Duodenum Performing Organization Address City/State/Zipcode Phone Number [facility] [address] [place] [address] [phone] CENTER EKG-SCANNED (01/20/2018 3:11 PM CDT) Narrative Performed At RHYTHM STRIP - SCAN (01/20/2018 3:11 PM CDT) Narrative Performed At ECHOCARDIOGRAM REPORT - SCAN (01/19/2018 2:21 PM CDT) Narrative Performed At 2D Echo W/Doppler(CW/PW/Color) (01/18/2018 1:59 PM CDT) Ejection Fraction [facility] Narrative Performed At Transthoracic Echocardiography Report (TTE) [facility] Demographics Patient NameDANA PAYAN Date of Study 01/18/2018 GenderFemale Visit [id number] Tam[place]an Number [id number] Number Date of 1940 Referring Physician MORENA James Age 77 year(s) Lead Pastor Agustín Stevenson [facility] Adult Education Teacher Stewart Nguyen MD Physician Procedure Type of [...] of Study 01/18/2018 Gender Female Visit Number [id number] Race Unknown Room Number 7106 Number Date of 1940 Referring Physician MORENA James Age 77 year(s) Lead Pastor Agustín Stevenson [facility] Adult Education Teacher Stewart Velasco Interpreting Alvaro Nguyen MD Physician [...] included. WBC 4.8 3.5 - 10.5 K/L [facility] RBC 3.28 (L) 3.93 - 5.22 M/L [facility] Hemoglobin 10.4 (L) 11.2 - 15.7 GM/DL [facility] Hematocrit 32.7 (L) 34.1 - 44.9 % [facility] MCV 99.7 (H) 79.4 - 94.8 fL [facility] MCH 31.7 25.6 - 32.2 pg [facility] MCHC 31.8 (L) 32.2 - 35.5 GM/DL [facility] RDW 14.7 (H) 11.7 - 14.4 % [facility] Platelets 141 (L) 150 - 450 K/CU MM [facility] MPV 11.2 9.4 - 12.3 fL [facility] nRBC 0 0 - 0 /100 WBC [facility] % Neutros 67 % [facility] % Lymphs 26 % [facility] % Monos 5 % [facility] % Eos 1 % [facility] % Baso 0 % [facility] # Neutros 3.21 1.56 - 6.13 K/L [facility] # Lymphs 1.24 1.18 - 3.74 K/L [facility] # Monos 0.23 (L) 0.24 - 0.36 K/L [facility] # Eos 0.06 0.04 - 0.36 K/L [facility] # Baso 0.02 0.01 - 0.08 K/L [facility] Immature Granulocytes-Relative 1 0 - 1 % [facility] Specimen Blood - Arm, Left Performing Organization Address City/State/Zipcode Phone Number [facility] [address] [place] [address] [phone] CENTER Prothrombin time/INR (01/18/2018 3:49 AM CDT)Only the most recent of7 resultswithin the time period is included. Protime 23.7 (H) 11.7 - 14.7 seconds [facility] INR 2.1 <=5.9 [facility] Specimen Blood - Arm, Left Narrative Performed At [facility] RECOMMENDED COUMADIN/WARFARIN INR THERAPY RANGES STANDARD DOSE: 2.0 - 3.0 Includes: PROPHYLAXIS for venous thrombosis, systemic embolization; TREATMENT for venous thrombosis and/or pulmonary embolus. HIGH RISK: Target INR is 2.5-3.5 for patients with mechanical heart valves. Performing Organization Address City/[facility]/Zipcode Phone Number [facility] [address] [place] [address] [place] Magnesium (01/18/2018 3:49 AM CDT)Only the most recent of8 resultswithin the time period is included. Magnesium 1.7 1.6 - 2.6 mg/dL [facility] Specimen Blood - Arm, Left Performing Organization Address [facility] Phone Number [address] [address] [place] Comprehensive metabolic panel (01/18/2018 3:49 AM CDT)Only the most recent of6 resultswithin the time period is included. Protein, Total 5.2 (L) 6.0 - 8.3 gm/dL [facility] Albumin 3.0 (L) 3.5 - 5.0 g/dL [facility] Alkaline Phosphatase 39 (L) 40 - 150 U/L [facility] Total Bilirubin 0.4 0.2 - 1.2 mg/dL [facility] Sodium 145 136 - 145 meq/L [facility] Potassium 3.6 3.5 - 5.1 meq/L [facility] Chloride 109 (H) 98 - 107 meq/L [facility] CO2 28 22 - 29 meq/L [facility] BUN 8 7 - 21 mg/dL [facility] Creatinine 0.70 0.57 - 1.25 mg/dL [facility] Glucose 107 (H) 70 - 105 mg/dL [facility] Calcium 8.4 8.4 - 10.2 mg/dL [facility] AST 9 5 - 34 U/L [facility] ALT <6 (L) 6 - 55 U/L [facility] EGFR 81Comment: ESTIMATED GFR mL/min/1.[address] [facility] IS NOT ACCURATE [facility] CREATININE CLEARANCE IN PREDICTING GLOMERULAR FILTRATION RATE. ESTIMATED GFR IS NOT APPLICABLE FOR DIALYSIS PATIENTS. Specimen Blood - Arm, Left Performing Organization Address [facility] Phone Number [facility] [address] [place] [address] CENTER ECG 12 lead (01/17/2018 7:28 AM CDT)Only the most recent of2 resultswithin the time period is included. Narrative Performed At Ventricular Rate 62 BPM GE MUSE Atrial Rate 62 BPM P-R Interval 126 ms QRS Duration 72 ms Q-T Interval 392 ms QTC Calculation(Bazett) 397 ms P [place] 43 degrees R [place] 0 degrees T [place] 4 degrees Normal sinus rhythm Normal ECG [...] 392 ms QTC Calculation(Bazett) 397 ms P [place] 43 degrees R [place] 0 degrees T [place] 4 degrees Normal sinus rhythm Normal ECG When compared with ECG of 14-JAN-2018 07:47, Sinus rhythm has replaced Atrial fibrillation Vent. rate has decreased BY 67 BPM Confirmed by Myriam CABELLO BASANT ([id number]) on 01/17/2018 9:57:49 PM Performing Organization Address [facility] Phone Number [place] MUSE T3, free (01/17/2018 3:19 AM CDT) T3, Free 1.31 (L) 1.71 - 3.71 pg/mL [facility] Specimen Blood - Central Venous Line Performing Organization Address City/[facility] Phone Number [facility] [address] [address] [phone] CENTER T3 (01/17/2018 3:19 AM CDT) T3, Total 41 (L) 48 - 159 ng/dL [facility] Specimen Blood - Central Venous Line Performing Organization Address [facility] Phone Number [address] [address] CENTER Lipase (01/17/2018 3:19 AM CDT)Only the most recent of2 resultswithin the time period is included. Lipase 471 (H) 8 - 78 U/L [facility] Specimen Blood - Central Venous Line Performing Organization Address [facility] Phone Number [address] [address] [place] Basic Metabolic Panel (01/16/2018 4:26 PM CDT) Sodium 143 136 - 145 meq/L [facility] Potassium 4.1 3.5 - 5.1 meq/L [facility] Chloride 109 (H) 98 - 107 meq/L [facility] CO2 24 22 - 29 meq/L [facility] BUN 9 7 - 21 mg/dL [facility] Creatinine 0.74 0.57 - 1.25 mg/dL [facility] Glucose 249 (H) 70 - 105 mg/dL [facility] Calcium 8.1 (L) 8.4 - 10.2 mg/dL [facility] EGFR 76Comment: ESTIMATED GFR IS mL/min/1.[address] [facility] NOT ACCURATE CREATININE [facility] CLEARANCE IN PREDICTING GLOMERULAR FILTRATION RATE. ESTIMATED GFR IS NOT APPLICABLE FOR DIALYSIS PATIENTS. Specimen Blood Performing Organization Address [facility] Phone Number [address] [address] CENTER Clostridium difficile [facility] Toxin (01/16/2018 4:08 AM CDT) C. Difficle Toxin Negative Negative [facility] C. Difficile [facility] Antigen Positive (A)Comment: C. Negative [facility] difficile present but toxin [facility] not detected. Indicates colonization with non-toxigenic strain or level of toxin below detectable levels. No need for enteric isolation. Treatment is rarely needed (only when strong clinical suspicion for Clostridium difficile infection) Specimen Stool - Stool Narrative Performed At Testing performed by [employer] [facility] Assay.For GDH, published sensitivity of the assay is 98.7% compared to cytotoxicity testing.For Toxin AB, published sensitivity is 87.8% and specificity 99.4% compared to cytotoxicity testing. Verification of kit performance was done by the [facility] Microbiology Lab prior to clinical use. Performing Organization Address City/[facility] Phone Number [address] [address] [place] Potassium (01/15/2018 5:00 PM CDT)Only the most recent of2 resultswithin the time period is included. Potassium 4.2 3.5 - 5.1 meq/L [facility] Specimen Blood Performing Organization Address [facility] Phone Number [address] [address] [place] Troponin I (01/14/2018 12:14 PM CDT)Only the most recent of2 resultswithin the time period is included. Troponin I 0.02 0.00 - 0.03 ng/mL [facility] Specimen Blood Narrative Performed At [facility] Troponin I (TnI) levels must be [...] tachyarrhythmia. Performing Organization Address City/State/Zipcode Phone Number [facility] [address] [place] [address] CENTER B-type Natriuretic Factor (BNP) (01/14/2018 11:08 AM CDT) BNP 975 (H) 0 - 100 pg/mL [facility] Specimen Blood Performing Organization Address [facility]/Zipcode Phone Number [facility] [address] [place] [address] [place] US abdomen limited (01/14/2018 6:45 AM CDT) Narrative Performed At FINAL REPORT Relypsa INDICATION: 77-year-old female with abdominal pain and [...] MD Report Verified Date/Time:01/14/2018 10:23:02 Reading Location: [facility] C013X Ortho Consult Reading Room Procedure Note [...] Report Verified Date/Time: 01/14/2018 10:23:02 Reading Location: [facility] [id number] Ortho Consult Reading Room Performing Organization Address City/[facility] Phone Number GE RIS Vitamin B12 and Folate (01/14/2018 6:34 AM CDT) Vitamin B12 1,276 (H) 213 - 816 pg/mL [facility] Folate 8.8 >=7.0 ng/mL [facility] Specimen Blood - Line, Venous Performing Organization Address City/State/Zipcode Phone Number [address] [address] CENTER TSH/Free T4 If Indicated (01/14/2018 6:34 AM CDT) TSH 0.02 (L) 0.35 - 4.94 uIU/mL [facility] Specimen Blood - Line, Venous Performing Organization Address [facility] Phone Number [address] [address] [phone] [place] T4, free (01/14/2018 6:34 AM CDT) Free T4 0.83 0.70 - 1.48 ng/dL [facility] Specimen Blood - Line, Venous Performing Organization Address [facility] Phone Number [address] [address] [place] Lipid panel (01/14/2018 6:34 AM CDT) Triglycerides 171 mg/dL [facility] Cholesterol 123 mg/dL [facility] HDL 25 mg/dL [facility] LDL Calculated 64 mg/dL [facility] Specimen Blood - Line, Venous Narrative Performed At [facility] Triglyceride Reference Range: Low Risk <150 [id number] High Risk 200-499 Very High Risk>=500 Cholesterol Reference Range: Low Risk <200 [id number] High Risk>240 HDL Cholesterol Reference Range: Low Risk >=60 High Risk <40 LDL Cholesterol Reference Range: Optimal<100 Near [id number] Very High >=190 Performing Organization Address [facility] Phone Number [address] [address] [phone] CENTER Blood culture (01/14/2018 1:28 AM CDT)Only the most recent of2 resultswithin the time period is included. Result No growth in 5 days [facility] Specimen Blood - Line, Venous Performing Organization Address [facility] Phone Number [address] [address] [place] Urinalysis w/Microscopic (01/14/2018 1:28 AM CDT) Color, UA Yellow [facility] Clarity, UA Clear [facility] Specific [place], UA 1.043 (H) 1.001 - 1.035 [facility] pH, UA 6.5 5.0 - 8.0 [facility] Protein, UA 20 mg/dL (A) Negative [facility] Glucose, UA 1000 mg/dL (A) Negative [facility] Ketones, UA Negative Negative [facility] Bilirubin, UA Negative Negative [facility] Blood, UA Trace (A) Negative [facility] Nitrite, UA Negative Negative [facility] Leukocytes, UA Negative Negative [facility] Urobilinogen, UA 0.2 0.2 - 1.0 mg/dL [facility] RBC, UA 1 /HPF [facility] WBC, UA 3 /HPF [facility] Bacteria, UA Rare [facility] Specimen Source Urine, Taylor [facility] Specimen Urine - Urine, Taylor Performing Organization Address City/[facility]/Zipcode Phone Number [address] [address] [place] Urine culture (01/14/2018 1:28 AM CDT) Result No growth [facility] Specimen Urine - Urine, Taylor Performing Organization Address City/[facility]/Zipcode Phone Number [address] [address] [phone] [place] Procalcitonin (01/14/2018 1:26 AM CDT) Procalcitonin 0.41 (H) <0.05 ng/mL [facility] Specimen Blood - Central Venous Line Narrative Performed At [facility] SEPSIS RISK (ng/mL) Low:0.05-0.50 Intermediate: 0.51-2.00 High: >=2.01 Performing Organization Address [facility] Phone Number [address] [address] [place] Lactic acid, venous, whole blood (01/14/2018 1:26 AM CDT) Lactate, Venous 1.3Comment: Specimen 0.5 - 2.2 mmol/L [facility] slightly hemolyzed [facility] Specimen Blood - Central Venous Line Narrative Performed At [facility] Effective 01/07/2016: Units/Reference Range Change New: 0.5-2.2 mmol/LPrevious: 5-20 mg/dL Performing Organization Address [facility] Phone Number [address] [address] [phone] [place] aPTT (01/14/2018 1:26 AM CDT) PTT 32.4 22.5 - 36.0 seconds [facility] Specimen Blood - Central Venous Line Performing Organization Address [facility] Phone Number [address] [address] [phone] [place] Amylase (01/14/2018 1:26 AM CDT) Amylase 226 (H) 25 - 125 U/L [facility] Specimen Blood - Central Venous Line Performing Organization Address [facility] Phone Number [address] [address] [phone] [place] after 10/25/2017 Insurance Payer Benefit Plan / Group Subscriber ID Type Phone Address MEDICARE MEDICARE A B xxxxxxxxxx Medicare AETNA - MGD CARE AETNA INDEMNITY NON CONTR xxxxxxxxxx [place] ([place]) [place] [address] Advance Directives For more information, please contact:[address] [place], [place] [phone] Code Status Date Activated Date Inactivated Comments Full Code 01/14/2018 12:36 AM 01/18/2018 6:55 PM This code status was determined by: Patient
--- OUTSIDE RECORDS SUMMARY | 2018-10-26 11:41 | XMS REPORT ---
:1940 [facility] Address [address] [place] [address] [address]. [address] [place] [address] Care Team Providers Name Role Phone MACIEJ VILLA Unavailable Unavailable RANCHO SANDOVAL Unavailable Unavailable Problems This patient has no known problems. Allergies, Adverse Reactions, Alerts This patient has no known allergies or adverse reactions. Medications This patient has no known medications. Results Test Description Test Time Test Comments Text Results Atomic Results Result Comments TISSUE EXAM 2018-03-20 13:06:00 Surgical Pathology Report Case: [id number] Authorizing Provider: Maciej Villa Collected: 03/14/2018 1115 Ordering Location: [facility] Endoscopy Received: 03/14/2018 1351 Services Pathologist: Mara Barboza MD Specimens: A) - Polyp, Duodenum B) - Stomach, Antrum, bx C) - Biopsy, Gastric, gastric body D) - Biopsy, Esophagus, random THIS ADDENDUM IS ISSUED TO REPORT THE RESULT OF IMMUNOHISTOCHEMICAL STUDY FOR HELICOBACTER PYLORI OM SPECIMEN B: - NEGATIVE CPT CODE: [id number] electronically signed by Mara Barboza MD on [...] MALIGNANCY SEEN Signing Pathologist Direct Phone Line: [phone] signed by Mara Barboza MD on 03/17/2018 at 10:35 [id number] X 4; [id number] X 2A. Polyp, duodenum. B. Stomach antrum. [...] (BEAKER) (test 75 mg/dL 70-110 TESTED AT [facility] [address] [facility] gewg=[id number]) [facility] [address] BLOOD [id number] 06:00:00 Test Item Value Reference Range Comments CULTURE (BEAKER) (test fugg=0365) No growth in 5 days BLOOD [id number] 06:00:00 Test Item Value Reference Range Comments CULTURE (BEAKER) (test rlmy=6651) No growth in 5 days POCT-GLUCOSE [id number] 12:32:00 Test Item Value Reference Range Comments POC-GLUCOSE METER (BEAKER) 217 mg/dL 70-110 TESTED AT [facility] [address] [facility] (test pnco=1900) [facility] [address] POCT-GLUCOSE [id number] 08:36:00 Test Item Value Reference Range Comments POC-GLUCOSE METER (BEAKER) 92 mg/dL 70-110 TESTED AT [place] [id number] [facility] (test tuut=9296) [facility] [address] COMPREHENSIVE METABOLIC [id number] 04:59:00 Test Item Value Reference Range Comments TOTAL PROTEIN (BEAKER) 5.2 gm/dL 6.0-8.3 (test zkgy=454) ALBUMIN (BEAKER) (test 3.0 g/dL 3.5-5.0 mdhr=9713) ALKALINE PHOSPHATASE 39 U/L 40-150 (BEAKER) (test nawm=652) BILIRUBIN TOTAL (BEAKER) 0.4 mg/dL 0.2-1.2 (test kvkp=617) SODIUM (BEAKER) (test 145 meq/L 136-145 oomc=927) POTASSIUM (BEAKER) (test 3.6 meq/L 3.5-5.1 uvyt=911) CHLORIDE (BEAKER) (test 109 meq/L 98-107 qsbe=974) CO2 (BEAKER) (test 28 meq/L 22-29 kgou=270) BLOOD UREA NITROGEN 8 mg/dL 7-21 (BEAKER) (test vndr=109) CREATININE (BEAKER) (test 0.70 mg/dL 0.57-1.25 pnsz=795) GLUCOSE RANDOM (BEAKER) 107 mg/dL 70-105 (test lbsb=209) CALCIUM (BEAKER) (test 8.4 mg/dL 8.4-10.2 qzdw=957) AST (SGOT) (BEAKER) (test 9 U/L 5-34 wdwt=969) ALT (SGPT) (BEAKER) (test < U/L 6-55 vkus=322) EGFR (BEAKER) (test 81 mL/min/1.73 sq m ESTIMATED GFR IS NOT jvoi=6308) ACCURATE CREATININE CLEARANCE IN PREDICTING GLOMERULAR FILTRATION RATE. ESTIMATED GFR IS NOT APPLICABLE FOR DIALYSIS PATIENTS. [id number] 04:50:00 Test Item Value Reference Range Comments MAGNESIUM (BEAKER) (test mqjq=371) 1.7 mg/dL 1.6-2.6 PROTHROMBIN [id number] 04:35:00 Test Item Value Reference Range Comments PROTIME (BEAKER) (test vtdi=235) 23.7 seconds 11.7-14.7 INR (BEAKER) (test rwhq=476) 2.1 <=5.9 RECOMMENDED COUMADIN/WARFARIN INR THERAPY RANGESSTANDARD DOSE: 2.0 - 3.0 Includes: PROPHYLAXIS forvenous thrombosis, systemic embolization; TREATMENT for venous thrombosis and/or pulmonary embolus.HIGH RISK: Target INR is 2.5-3.5 for patients with mechanical heart valves.CBC W/PLT COUNT & AUTO [id number] 04:24:00 Test Item Value Reference Range Comments WHITE BLOOD CELL COUNT (BEAKER) (test cpdj=849) 4.8 K/ L 3.5-10.5 RED BLOOD CELL COUNT (BEAKER) (test ggbk=367) 3.28 M/ L 3.93-5.22 HEMOGLOBIN (BEAKER) (test groj=696) 10.4 GM/DL 11.2-15.7 HEMATOCRIT (BEAKER) (test wfwd=575) 32.7 % 34.1-44.9 MEAN CORPUSCULAR VOLUME (BEAKER) (test atan=354) 99.7 fL 79.4-94.8 MEAN CORPUSCULAR HEMOGLOBIN (BEAKER) (test 31.7 pg 25.6-32.2 mbcw=036) MEAN CORPUSCULAR HEMOGLOBIN CONC (BEAKER) (test 31.8 GM/DL 32.2-35.5 cntv=452) RED CELL DISTRIBUTION WIDTH (BEAKER) (test 14.7 % 11.7-14.4 czqu=263) PLATELET COUNT (BEAKER) (test mqlo=253) 141 K/CU MM 150-450 MEAN PLATELET VOLUME (BEAKER) (test rzrf=949) 11.2 fL 9.4-12.3 NUCLEATED RED BLOOD CELLS (BEAKER) (test 0 /100 WBC 0-0 aoxb=540) NEUTROPHILS RELATIVE PERCENT (BEAKER) (test 67 % mrjq=770) LYMPHOCYTES RELATIVE PERCENT (BEAKER) (test 26 % khpn=846) MONOCYTES RELATIVE PERCENT (BEAKER) (test 5 % vubh=939) EOSINOPHILS RELATIVE PERCENT (BEAKER) (test 1 % nnrp=271) BASOPHILS RELATIVE PERCENT (BEAKER) (test 0 % tjwu=439) NEUTROPHILS ABSOLUTE COUNT (BEAKER) (test 3.21 K/ L 1.56-6.13 uojw=584) LYMPHOCYTES ABSOLUTE COUNT (BEAKER) (test 1.24 K/ L 1.18-3.74 dexu=935) MONOCYTES ABSOLUTE COUNT (BEAKER) (test 0.23 K/ L 0.24-0.36 nzai=903) EOSINOPHILS ABSOLUTE COUNT (BEAKER) (test 0.06 K/ L 0.04-0.36 bihi=256) BASOPHILS ABSOLUTE COUNT (BEAKER) (test 0.02 K/ L 0.01-0.08 kfqk=776) IMMATURE GRANULOCYTES-RELATIVE PERCENT (BEAKER) 1 % 0-1 (test ajmn=4553) POCT-GLUCOSE [id number] 22:13:00 Test Item Value Reference Range Comments POC-GLUCOSE METER (BEAKER) 194 mg/dL 70-110 TESTED AT [address] (test pvfc=9519) [place] [address] POCT-GLUCOSE [id number] 18:14:00 Test Item Value Reference Range Comments POC-GLUCOSE METER (BEAKER) 195 mg/dL 70-110 TESTED AT [address] (test hbrb=2266) [place] [address] POCT-GLUCOSE [id number] 12:20:00 Test Item Value Reference Range Comments POC-GLUCOSE METER (BEAKER) 224 mg/dL 70-110 TESTED AT [address] (test erjx=2258) [place] [address] [id number] 08:55:00 Test Item Value Reference Range Comments LIPASE (BEAKER) (test krwn=678) 471 U/L 8-78 POCT-GLUCOSE [id number] 08:12:00 Test Item Value Reference Range Comments POC-GLUCOSE METER (BEAKER) 128 mg/dL 70-110 TESTED AT [address] (test rsmp=8449) [place] [address] [id number] 04:12:00 Test Item Value Reference Range Comments T3 TOTAL (BEAKER) (test pukt=313) 41 ng/dL 48-159 T3, [id number] 04:11:00 Test Item Value Reference Range Comments T3 FREE (BEAKER) (test eqvk=426) 1.31 pg/mL 1.71-3.71 COMPREHENSIVE METABOLIC [id number] 04:01:00 Test Item Value Reference Range Comments TOTAL PROTEIN (BEAKER) 4.8 gm/dL 6.0-8.3 (test eauq=311) ALBUMIN (BEAKER) (test 2.8 g/dL 3.5-5.0 bdbq=0085) ALKALINE PHOSPHATASE 33 U/L 40-150 (BEAKER) (test kzun=064) BILIRUBIN TOTAL (BEAKER) 0.4 mg/dL 0.2-1.2 (test lnoq=787) SODIUM (BEAKER) (test 143 meq/L 136-145 fnqb=748) POTASSIUM (BEAKER) (test 4.0 meq/L 3.5-5.1 ktec=301) CHLORIDE (BEAKER) (test 110 meq/L 98-107 sblt=940) CO2 (BEAKER) (test 26 meq/L 22-29 esed=502) BLOOD UREA NITROGEN 9 mg/dL 7-21 (BEAKER) (test evjb=465) CREATININE (BEAKER) (test 0.73 mg/dL 0.57-1.25 fddx=387) GLUCOSE RANDOM (BEAKER) 213 mg/dL 70-105 (test lhlm=759) CALCIUM (BEAKER) (test 8.2 mg/dL 8.4-10.2 dezh=794) AST (SGOT) (BEAKER) (test 8 U/L 5-34 qhau=620) ALT (SGPT) (BEAKER) (test < U/L 6-55 fnkr=874) EGFR (BEAKER) (test 77 mL/min/1.73 sq m ESTIMATED GFR IS NOT dmta=7032) ACCURATE CREATININE CLEARANCE IN PREDICTING GLOMERULAR FILTRATION RATE. ESTIMATED GFR IS NOT APPLICABLE FOR DIALYSIS PATIENTS. [id number] 03:54:00 Test Item Value Reference Range Comments MAGNESIUM (BEAKER) (test xlnh=766) 1.7 mg/dL 1.6-2.6 PROTHROMBIN [id number] 03:53:00 Test Item Value Reference Range Comments PROTIME (BEAKER) (test cnuc=755) 22.4 seconds 11.7-14.7 INR (BEAKER) (test lxtr=683) 2.0 <=5.9 RECOMMENDED COUMADIN/WARFARIN INR THERAPY RANGESSTANDARD DOSE: 2.0 - 3.0 Includes: PROPHYLAXIS forvenous thrombosis, systemic embolization; TREATMENT for venous thrombosis and/or pulmonary embolus.HIGH RISK: Target INR is 2.5-3.5 for patients with mechanical heart valves.CBC W/PLT COUNT & AUTO [id number] 03:46:00 Test Item Value Reference Range Comments WHITE BLOOD CELL COUNT (BEAKER) (test byyu=206) 5.3 K/ L 3.5-10.5 RED BLOOD CELL COUNT (BEAKER) (test qecz=828) 3.04 M/ L 3.93-5.22 HEMOGLOBIN (BEAKER) (test uowy=504) 9.7 GM/DL 11.2-15.7 HEMATOCRIT (BEAKER) (test fonp=942) 30.6 % 34.1-44.9 MEAN CORPUSCULAR VOLUME (BEAKER) (test mkiv=528) 100.7 fL 79.4-94.8 MEAN CORPUSCULAR HEMOGLOBIN (BEAKER) (test 31.9 pg 25.6-32.2 vqcx=092) MEAN CORPUSCULAR HEMOGLOBIN CONC (BEAKER) (test 31.7 GM/DL 32.2-35.5 xsyx=470) RED CELL DISTRIBUTION WIDTH (BEAKER) (test 14.6 % 11.7-14.4 rojj=217) PLATELET COUNT (BEAKER) (test phoa=796) 135 K/CU MM 150-450 MEAN PLATELET VOLUME (BEAKER) (test gaki=036) 11.4 fL 9.4-12.3 NUCLEATED RED BLOOD CELLS (BEAKER) (test 0 /100 WBC 0-0 ompy=525) NEUTROPHILS RELATIVE PERCENT (BEAKER) (test 76 % ofef=331) LYMPHOCYTES RELATIVE PERCENT (BEAKER) (test 19 % ipzg=487) MONOCYTES RELATIVE PERCENT (BEAKER) (test 3 % gxbz=750) EOSINOPHILS RELATIVE PERCENT (BEAKER) (test 0 % rvhs=321) BASOPHILS RELATIVE PERCENT (BEAKER) (test 0 % mqpg=244) NEUTROPHILS ABSOLUTE COUNT (BEAKER) (test 4.02 K/ L 1.56-6.13 jrvk=961) LYMPHOCYTES ABSOLUTE COUNT (BEAKER) (test 1.01 K/ L 1.18-3.74 bkrj=357) MONOCYTES ABSOLUTE COUNT (BEAKER) (test 0.15 K/ L 0.24-0.36 miwl=588) EOSINOPHILS ABSOLUTE COUNT (BEAKER) (test 0.01 K/ L 0.04-0.36 lgwo=446) BASOPHILS ABSOLUTE COUNT (BEAKER) (test 0.01 K/ L 0.01-0.08 qgir=223) IMMATURE GRANULOCYTES-RELATIVE PERCENT (BEAKER) 1 % 0-1 (test wwer=7975) POCT-GLUCOSE [id number] 22:34:00 Test Item Value Reference Range Comments POC-GLUCOSE METER (BEAKER) 252 mg/dL 70-110 TESTED AT [facility] [address] [facility] (test cbkt=5954) [facility] [address] [id number] 19:36:00 Test Item Value Reference Range Comments MAGNESIUM (BEAKER) (test gfwf=400) 1.6 mg/dL 1.6-2.6 BASIC METABOLIC [id number] 19:36:00 Test Item Value Reference Range Comments SODIUM (BEAKER) (test 143 meq/L 136-145 xdzs=250) POTASSIUM (BEAKER) (test 4.1 meq/L 3.5-5.1 hhoa=452) CHLORIDE (BEAKER) (test 109 meq/L 98-107 cogb=136) CO2 (BEAKER) (test 24 meq/L 22-29 kxht=958) BLOOD UREA NITROGEN 9 mg/dL 7-21 (BEAKER) (test bupq=836) CREATININE (BEAKER) (test 0.74 mg/dL 0.57-1.25 rkdi=384) GLUCOSE RANDOM (BEAKER) 249 mg/dL 70-105 (test bizt=025) CALCIUM (BEAKER) (test 8.1 mg/dL 8.4-10.2 txbh=895) EGFR (BEAKER) (test 76 mL/min/1.73 sq m ESTIMATED GFR IS NOT ulev=6523) ACCURATE CREATININE CLEARANCE IN PREDICTING GLOMERULAR FILTRATION RATE. ESTIMATED GFR IS NOT APPLICABLE FOR DIALYSIS PATIENTS. URINE [id number] 11:51:00 Test Item Value Reference Range Comments CULTURE (BEAKER) (test gdko=0924) No growth POCT-GLUCOSE [id number] 11:42:00 Test Item Value Reference Range Comments POC-GLUCOSE METER (BEAKER) 205 mg/dL 70-110 TESTED AT [address] (test qvff=3585) [facility] [address] POCT-GLUCOSE [id number] 08:08:00 Test Item Value Reference Range Comments POC-GLUCOSE METER (BEAKER) 119 mg/dL 70-110 TESTED AT [address] (test nfmk=3695) [facility] [address] C. DIFFICILE GDH [id number] 07:40:00 Test Item Value Reference Range Comments CDT TOXIN (test Negative Negative pjbl=[id number]) CDT GDH ANTIGEN (test Positive Negative C. difficile present but toxin mzwr=[id number]) not detected. Indicates colonization with non-toxigenic strain or level of toxin below detectable levels. No need for enteric isolation. Treatment is rarely needed (only when strong clinical suspicion for Clostridium difficile infection) Testing performed by [employer] Rapid Cassette Assay. For GDH, published sensitivity of the assay is 98.7% compared to cytotoxicity testing. For Toxin AB, published sensitivity is 87.8% and specificity 99.4% compared to cytotoxicity testing.Verification of kit performance was done by the [facility] Microbiology Lab prior to clinical use.POCT-GLUCOSE [id number] 06:37:00 Test Item Value Reference Range Comments POC-GLUCOSE METER (BEAKER) 141 mg/dL 70-110 TESTED AT [address] (test dinq=0633) [facility] [address] COMPREHENSIVE METABOLIC [id number] 04:48:00 Test Item Value Reference Range Comments TOTAL PROTEIN (BEAKER) 4.7 gm/dL 6.0-8.3 (test lxao=652) ALBUMIN (BEAKER) (test 2.7 g/dL 3.5-5.0 jnbo=6026) ALKALINE PHOSPHATASE 33 U/L 40-150 (BEAKER) (test biig=745) BILIRUBIN TOTAL (BEAKER) 0.4 mg/dL 0.2-1.2 (test knii=777) SODIUM (BEAKER) (test 145 meq/L 136-145 kssj=438) POTASSIUM (BEAKER) (test 3.7 meq/L 3.5-5.1 zgdj=513) CHLORIDE (BEAKER) (test 110 meq/L 98-107 xzjo=433) CO2 (BEAKER) (test 28 meq/L 22-29 bgix=009) BLOOD UREA NITROGEN 11 mg/dL 7-21 (BEAKER) (test gech=708) CREATININE (BEAKER) (test 0.74 mg/dL 0.57-1.25 pzkf=351) GLUCOSE RANDOM (BEAKER) 137 mg/dL 70-105 (test bnlz=363) CALCIUM (BEAKER) (test 8.2 mg/dL 8.4-10.2 gwqr=047) AST (SGOT) (BEAKER) (test 8 U/L 5-34 oqfm=226) ALT (SGPT) (BEAKER) (test < U/L 6-55 ched=738) EGFR (BEAKER) (test 76 mL/min/1.73 sq m ESTIMATED GFR IS NOT jixs=4476) ACCURATE CREATININE CLEARANCE IN PREDICTING GLOMERULAR FILTRATION RATE. ESTIMATED GFR IS NOT APPLICABLE FOR DIALYSIS PATIENTS. PROTHROMBIN [id number] 04:40:00 Test Item Value Reference Range Comments PROTIME (BEAKER) (test kefs=422) 23.8 seconds 11.7-14.7 INR (BEAKER) (test grrq=955) 2.1 <=5.9 RECOMMENDED COUMADIN/WARFARIN INR THERAPY RANGESSTANDARD DOSE: 2.0 - 3.0 Includes: PROPHYLAXIS forvenous thrombosis, systemic embolization; TREATMENT for venous thrombosis and/or pulmonary embolus.HIGH RISK: Target INR is 2.5-3.5 for patients with mechanical heart valves.While on warfarin.[id number] 04:29:00 Test Item Value Reference Range Comments MAGNESIUM (BEAKER) (test uajq=105) 2.0 mg/dL 1.6-2.6 CBC W/PLT COUNT & AUTO [id number] 04:11:00 Test Item Value Reference Range Comments WHITE BLOOD CELL COUNT (BEAKER) (test tguo=629) 5.8 K/ L 3.5-10.5 RED BLOOD CELL COUNT (BEAKER) (test card=960) 3.18 M/ L 3.93-5.22 HEMOGLOBIN (BEAKER) (test rxpe=290) 10.0 GM/DL 11.2-15.7 HEMATOCRIT (BEAKER) (test jumc=721) 31.8 % 34.1-44.9 MEAN CORPUSCULAR VOLUME (BEAKER) (test uhly=112) 100.0 fL 79.4-94.8 MEAN CORPUSCULAR HEMOGLOBIN (BEAKER) (test 31.4 pg 25.6-32.2 crwq=159) MEAN CORPUSCULAR HEMOGLOBIN CONC (BEAKER) (test 31.4 GM/DL 32.2-35.5 zixh=453) RED CELL DISTRIBUTION WIDTH (BEAKER) (test 14.9 % 11.7-14.4 vavx=209) PLATELET COUNT (BEAKER) (test ruao=089) 141 K/CU MM 150-450 MEAN PLATELET VOLUME (BEAKER) (test kcuv=643) 11.3 fL 9.4-12.3 NUCLEATED RED BLOOD CELLS (BEAKER) (test 0 /100 WBC 0-0 uhml=679) NEUTROPHILS RELATIVE PERCENT (BEAKER) (test 71 % vwsq=293) LYMPHOCYTES RELATIVE PERCENT (BEAKER) (test 23 % vbpv=235) MONOCYTES RELATIVE PERCENT (BEAKER) (test 4 % vvet=114) EOSINOPHILS RELATIVE PERCENT (BEAKER) (test 0 % fukd=404) BASOPHILS RELATIVE PERCENT (BEAKER) (test 0 % lnko=624) NEUTROPHILS ABSOLUTE COUNT (BEAKER) (test 4.14 K/ L 1.56-6.13 fddj=130) LYMPHOCYTES ABSOLUTE COUNT (BEAKER) (test 1.34 K/ L 1.18-3.74 kpkv=552) MONOCYTES ABSOLUTE COUNT (BEAKER) (test 0.23 K/ L 0.24-0.36 tvhm=072) EOSINOPHILS ABSOLUTE COUNT (BEAKER) (test 0.02 K/ L 0.04-0.36 lozi=486) BASOPHILS ABSOLUTE COUNT (BEAKER) (test 0.02 K/ L 0.01-0.08 gxva=685) IMMATURE GRANULOCYTES-RELATIVE PERCENT (BEAKER) 1 % 0-1 (test rlfh=7204) POCT-GLUCOSE [id number] 22:19:00 Test Item Value Reference Range Comments POC-GLUCOSE METER (BEAKER) 266 mg/dL 70-110 TESTED AT [facility] [address] [facility] (test wzft=1000) [facility] [address] [id number] 17:54:00 Test Item Value Reference Range Comments POTASSIUM (BEAKER) (test kxdi=339) 4.2 meq/L 3.5-5.1 [id number] 17:23:00 Test Item Value Reference Range Comments MAGNESIUM (BEAKER) (test ugvj=860) 1.7 mg/dL 1.6-2.6 POCT-GLUCOSE [id number] 12:41:00 Test Item Value Reference Range Comments POC-GLUCOSE METER (BEAKER) 111 mg/dL 70-110 TESTED AT [address] (test ogcy=1713) [facility] [address] [id number] 12:40:00 Test Item Value Reference Range Comments POTASSIUM (BEAKER) (test zmkz=341) 3.5 meq/L 3.5-5.1 POCT-GLUCOSE [id number] 10:05:00 Test Item Value Reference Range Comments POC-GLUCOSE METER (BEAKER) 94 mg/dL 70-110 TESTED AT [address] (test vkpy=4945) [place] [id number] COMPREHENSIVE METABOLIC [id number] 05:47:00 Test Item Value Reference Range Comments TOTAL PROTEIN (BEAKER) 4.7 gm/dL 6.0-8.3 (test qqua=217) ALBUMIN (BEAKER) (test 2.7 g/dL 3.5-5.0 vqlg=2310) ALKALINE PHOSPHATASE 31 U/L 40-150 (BEAKER) (test hjxp=786) BILIRUBIN TOTAL (BEAKER) 0.5 mg/dL 0.2-1.2 (test wsyz=638) SODIUM (BEAKER) (test 147 meq/L 136-145 lumc=383) POTASSIUM (BEAKER) (test 2.9 meq/L 3.5-5.1 ovww=423) CHLORIDE (BEAKER) (test 110 meq/L 98-107 nyot=723) CO2 (BEAKER) (test 27 meq/L 22-29 sizl=219) BLOOD UREA NITROGEN 10 mg/dL 7-21 (BEAKER) (test vird=374) CREATININE (BEAKER) (test 0.70 mg/dL 0.57-1.25 bpxc=452) GLUCOSE RANDOM (BEAKER) 86 mg/dL 70-105 (test boxq=916) CALCIUM (BEAKER) (test 7.9 mg/dL 8.4-10.2 judd=200) AST (SGOT) (BEAKER) (test 9 U/L 5-34 nysl=364) ALT (SGPT) (BEAKER) (test < U/L 6-55 uark=542) EGFR (BEAKER) (test 81 mL/min/1.73 sq m ESTIMATED GFR IS NOT mdzn=1956) ACCURATE CREATININE CLEARANCE IN PREDICTING GLOMERULAR FILTRATION RATE. ESTIMATED GFR IS NOT APPLICABLE FOR DIALYSIS PATIENTS. [id number] 05:44:00 Test Item Value Reference Range Comments MAGNESIUM (BEAKER) (test ouno=616) 2.0 mg/dL 1.6-2.6 PROTHROMBIN [id number] 05:37:00 Test Item Value Reference Range Comments PROTIME (BEAKER) (test ohds=589) 24.0 seconds 11.7-14.7 INR (BEAKER) (test ppjg=457) 2.2 <=5.9 RECOMMENDED COUMADIN/WARFARIN INR THERAPY RANGESSTANDARD DOSE: 2.0 - 3.0 Includes: PROPHYLAXIS forvenous thrombosis, systemic embolization; TREATMENT for venous thrombosis and/or pulmonary embolus.HIGH RISK: Target INR is 2.5-3.5 for patients with mechanical heart valves.PROTHROMBIN [id number] 05:36: 00 Test Item Value Reference Range Comments PROTIME (BEAKER) (test qyif=164) 24.2 seconds 11.7-14.7 INR (BEAKER) (test zvok=431) 2.2 <=5.9 RECOMMENDED COUMADIN/WARFARIN INR THERAPY RANGESSTANDARD DOSE: 2.0 - 3.0 Includes: PROPHYLAXIS forvenous thrombosis, systemic embolization; TREATMENT for venous thrombosis and/or pulmonary embolus.HIGH RISK: Target INR is 2.5-3.5 for patients with mechanical heart valves.While on warfarin.CBC W/PLT COUNT &amp ; AUTO [id number] 05:35:00 Test Item Value Reference Range Comments WHITE BLOOD CELL COUNT (BEAKER) (test pkzq=042) 4.3 K/ L 3.5-10.5 RED BLOOD CELL COUNT (BEAKER) (test kyzh=247) 3.29 M/ L 3.93-5.22 HEMOGLOBIN (BEAKER) (test pnbs=371) 10.3 GM/DL 11.2-15.7 HEMATOCRIT (BEAKER) (test omre=387) 33.2 % 34.1-44.9 MEAN CORPUSCULAR VOLUME (BEAKER) (test dith=889) 100.9 fL 79.4-94.8 MEAN CORPUSCULAR HEMOGLOBIN (BEAKER) (test 31.3 pg 25.6-32.2 gwpb=639) MEAN CORPUSCULAR HEMOGLOBIN CONC (BEAKER) (test 31.0 GM/DL 32.2-35.5 rmhq=975) RED CELL DISTRIBUTION WIDTH (BEAKER) (test 14.9 % 11.7-14.4 sond=097) PLATELET COUNT (BEAKER) (test ksjv=285) 138 K/CU MM 150-450 MEAN PLATELET VOLUME (BEAKER) (test cksd=036) 11.5 fL 9.4-12.3 NUCLEATED RED BLOOD CELLS (BEAKER) (test 0 /100 WBC 0-0 kypl=025) NEUTROPHILS RELATIVE PERCENT (BEAKER) (test 66 % qkwp=379) LYMPHOCYTES RELATIVE PERCENT (BEAKER) (test 27 % dlpa=563) MONOCYTES RELATIVE PERCENT (BEAKER) (test 4 % vzqn=786) EOSINOPHILS RELATIVE PERCENT (BEAKER) (test 1 % jqrl=158) BASOPHILS RELATIVE PERCENT (BEAKER) (test 0 % ibts=490) NEUTROPHILS ABSOLUTE COUNT (BEAKER) (test 2.82 K/ L 1.56-6.13 gxlj=131) LYMPHOCYTES ABSOLUTE COUNT (BEAKER) (test 1.16 K/ L 1.18-3.74 bfwj=244) MONOCYTES ABSOLUTE COUNT (BEAKER) (test 0.18 K/ L 0.24-0.36 zgnc=512) EOSINOPHILS ABSOLUTE COUNT (BEAKER) (test 0.06 K/ L 0.04-0.36 tmkh=746) BASOPHILS ABSOLUTE COUNT (BEAKER) (test 0.01 K/ L 0.01-0.08 mmhx=223) IMMATURE GRANULOCYTES-RELATIVE PERCENT (BEAKER) 1 % 0-1 (test simx=6912) POCT-GLUCOSE [id number] 23:56:00 Test Item Value Reference Range Comments POC-GLUCOSE METER (BEAKER) 105 mg/dL 70-110 TESTED AT [facility] [address] [facility] (test dudq=2216) [facility] [address] TROPONIN [id number] 13:02:00 Test Item Value Reference Range Comments TROPONIN I (BEAKER) (test bvxg=763) 0.02 ng/mL 0.00-0.03 Troponin I (TnI) levels [...] NATRIURETIC PEPTIDE (BEAKER) (test 975 pg/mL 0-100 lkuc=830) POCT-GLUCOSE [id number] 12:18:00 Test Item Value Reference Range Comments POC-GLUCOSE METER (BEAKER) 175 mg/dL 70-110 TESTED AT [facility] [address] [place] [address] (test guop=9107) [facility] [address] U/S, ABDOMINAL, [id number] 10:23:00Abdomen limited area? Add comment if clarification [...] MDReport Verified Date/Time: 01/14/2018 10:23:02 Reading Location: [facility] [id number] Ortho Consult Reading Room T4, [id number] 08:42 :00 Test Item Value Reference Range Comments FREE T4 (BEAKER) (test anfr=979) 0.83 ng/dL 0.70-1.48 POCT-GLUCOSE [id number] 08:37:00 Test Item Value Reference Range Comments POC-GLUCOSE METER (BEAKER) 161 mg/dL 70-110 TESTED AT [facility] [address] [facility] (test teoz=4897) [facility] [address] TSH/FREE T4 IF [id number] 08:05:00 Test Item Value Reference Range Comments THYROID STIMULATING HORMONE (BEAKER) (test 0.02 uIU/mL 0.35-4.94 cebl=960) VITAMIN B12 AND [id number] 07:42:00 Test Item Value Reference Range Comments VITAMIN B12 (BEAKER) (test ioba=908) 1276 pg/mL 213-816 FOLATE (BEAKER) (test zlvl=940) 8.8 ng/mL >=7.0 LIPID [id number] 07:14:00 Test Item Value Reference Range Comments TRIGLYCERIDES (BEAKER) (test wfmy=497) 171 mg/dL CHOLESTEROL (BEAKER) (test hpbr=140) 123 mg/dL HDL CHOLESTEROL (BEAKER) (test kiyk=847) 25 mg/dL LDL CHOLESTEROL CALCULATED (BEAKER) (test 64 mg/dL jwbq=679) Triglyceride Reference Range: Low Risk <150 Borderline 150- 199 High Risk 200-499 Very High Risk >=500Cholesterol Reference Range: Low Risk <200 Borderline 200-239 High Risk > 240HDL Cholesterol Reference Range: Low Risk >=60 High Risk <40LDL Cholesterol Reference Range: Optimal <100 Near Optimal 100-129 Borderline 130-159 High 160-189 Very High >=190TROPONIN [id number] 07:12:00 Test Item Value Reference Range Comments TROPONIN I (BEAKER) (test uwxf=737) 0.03 ng/mL 0.00-0.03 Troponin I (TnI) levels [...] acute neurological disease, and persistent tachyarrhythmia.URINALYSIS W/ [id number] 06: 35:00 Test Item Value Reference Range Comments COLOR (BEAKER) (test jbgd=393) Yellow CLARITY (BEAKER) (test mbtp=773) Clear SPECIFIC GRAVITY UA (BEAKER) (test goxx=063) 1.043 1.001-1.035 PH UA (BEAKER) (test mttp=109) 6.5 5.0-8.0 PROTEIN UA (BEAKER) (test rdhf=857) 20 mg/dL Negative GLUCOSE UA (BEAKER) (test hcxu=469) 1000 mg/dL Negative KETONES UA (BEAKER) (test aptz=055) Negative Negative BILIRUBIN UA (BEAKER) (test jcvp=130) Negative Negative BLOOD UA (BEAKER) (test lrgr=440) Trace Negative NITRITE UA (BEAKER) (test zsqj=516) Negative Negative LEUKOCYTE ESTERASE UA (BEAKER) (test jbbb=680) Negative Negative UROBILINOGEN UA (BEAKER) (test hoql=897) 0.2 mg/dL 0.2-1.0 RBC UA (BEAKER) (test gsqf=199) 1 /HPF WBC UA (BEAKER) (test tjrv=922) 3 /HPF BACTERIA (BEAKER) (test ynwe=849) Rare SOURCE(BEAKER) (test gzwt=8716) Urine, Taylor [id number] 06:07:00 Test Item Value Reference Range Comments MAGNESIUM (BEAKER) (test geyk=178) 1.8 mg/dL 1.6-2.6 [id number] 05:32:00 Test Item Value Reference Range Comments MAGNESIUM (BEAKER) (test zevl=374) 2.5 mg/dL 1.6-2.6 COMPREHENSIVE METABOLIC [id number] 05:32:00 Test Item Value Reference Range Comments TOTAL PROTEIN (BEAKER) 5.1 gm/dL 6.0-8.3 (test ngoo=459) ALBUMIN (BEAKER) (test 2.9 g/dL 3.5-5.0 fxor=2521) ALKALINE PHOSPHATASE 31 U/L 40-150 (BEAKER) (test dnqk=853) BILIRUBIN TOTAL (BEAKER) 0.4 mg/dL 0.2-1.2 (test pwml=586) SODIUM (BEAKER) (test 145 meq/L 136-145 jqbu=375) POTASSIUM (BEAKER) (test 4.0 meq/L 3.5-5.1 nvoe=699) CHLORIDE (BEAKER) (test 110 meq/L 98-107 mmxt=687) CO2 (BEAKER) (test 28 meq/L 22-29 isjh=443) BLOOD UREA NITROGEN 14 mg/dL 7-21 (BEAKER) (test eegj=719) CREATININE (BEAKER) (test 0.71 mg/dL 0.57-1.25 orzg=734) GLUCOSE RANDOM (BEAKER) 187 mg/dL 70-105 (test poal=313) CALCIUM (BEAKER) (test 8.1 mg/dL 8.4-10.2 jtxi=177) AST (SGOT) (BEAKER) (test 9 U/L 5-34 kgjo=215) ALT (SGPT) (BEAKER) (test 6 U/L 6-55 afkt=855) EGFR (BEAKER) (test 79 mL/min/1.73 sq m ESTIMATED GFR IS NOT kjwr=6054) ACCURATE CREATININE CLEARANCE IN PREDICTING GLOMERULAR FILTRATION RATE. ESTIMATED GFR IS NOT APPLICABLE FOR DIALYSIS PATIENTS. PROTHROMBIN [id number] 05:10:00 Test Item Value Reference Range Comments PROTIME (BEAKER) (test jxpn=406) 25.1 seconds 11.7-14.7 INR (BEAKER) (test huru=639) 2.3 <=5.9 RECOMMENDED COUMADIN/WARFARIN INR THERAPY RANGESSTANDARD DOSE: 2.0 - 3.0 Includes: PROPHYLAXIS forvenous thrombosis, systemic embolization; TREATMENT for venous thrombosis and/or pulmonary embolus.HIGH RISK: Target INR is 2.5-3.5 for patients with mechanical heart valves.CBC W/PLT COUNT & AUTO [id number] 05:03:00 Test Item Value Reference Range Comments WHITE BLOOD CELL COUNT (BEAKER) (test wewf=221) 5.6 K/ L 3.5-10.5 RED BLOOD CELL COUNT (BEAKER) (test dwra=770) 3.19 M/ L 3.93-5.22 HEMOGLOBIN (BEAKER) (test zrje=538) 10.1 GM/DL 11.2-15.7 HEMATOCRIT (BEAKER) (test kbqx=993) 31.5 % 34.1-44.9 MEAN CORPUSCULAR VOLUME (BEAKER) (test lzfb=200) 98.7 fL 79.4-94.8 MEAN CORPUSCULAR HEMOGLOBIN (BEAKER) (test 31.7 pg 25.6-32.2 epld=279) MEAN CORPUSCULAR HEMOGLOBIN CONC (BEAKER) (test 32.1 GM/DL 32.2-35.5 gztv=869) RED CELL DISTRIBUTION WIDTH (BEAKER) (test 14.6 % 11.7-14.4 kpsd=772) PLATELET COUNT (BEAKER) (test bdyx=588) 141 K/CU MM 150-450 MEAN PLATELET VOLUME (BEAKER) (test llsp=735) 11.6 fL 9.4-12.3 NUCLEATED RED BLOOD CELLS (BEAKER) (test 0 /100 WBC 0-0 fsua=565) NEUTROPHILS RELATIVE PERCENT (BEAKER) (test 71 % pmdm=313) LYMPHOCYTES RELATIVE PERCENT (BEAKER) (test 22 % bjwl=710) MONOCYTES RELATIVE PERCENT (BEAKER) (test 5 % biil=411) EOSINOPHILS RELATIVE PERCENT (BEAKER) (test 0 % rihr=018) BASOPHILS RELATIVE PERCENT (BEAKER) (test 0 % defz=159) NEUTROPHILS ABSOLUTE COUNT (BEAKER) (test 4.00 K/ L 1.56-6.13 jjju=700) LYMPHOCYTES ABSOLUTE COUNT (BEAKER) (test 1.25 K/ L 1.18-3.74 vfkp=597) MONOCYTES ABSOLUTE COUNT (BEAKER) (test 0.26 K/ L 0.24-0.36 fvnr=033) EOSINOPHILS ABSOLUTE COUNT (BEAKER) (test 0.02 K/ L 0.04-0.36 loiw=863) BASOPHILS ABSOLUTE COUNT (BEAKER) (test 0.01 K/ L 0.01-0.08 nbmz=265) IMMATURE GRANULOCYTES-RELATIVE PERCENT (BEAKER) 1 % 0-1 (test dsur=1278) [id number] 02:52:00 Test Item Value Reference Range Comments PROCALCITONIN (BEAKER) (test aszz=7650) 0.41 ng/mL <0.05 SEPSIS RISK (ng/mL)Low: 0.05-0.50Intermediate: 0.51-2.00High: & gt;=2.01LACTIC ACID, VENOUS, WHOLE [id number] 02:06:00 Test Item Value Reference Range Comments LACTATE BLOOD VENOUS (2) 1.3 mmol/L 0.5-2.2 Specimen slightly hemolyzed (BEAKER) (test bdum=9645) Effective 01/07/2016: Units/Reference Range ChangeNew: 0.5-2.2 mmol/L Previous: 5 -20 mg/dLCOMPREHENSIVE METABOLIC [id number] 02:06:00 Test Item Value Reference Range Comments TOTAL PROTEIN (BEAKER) 5.2 gm/dL 6.0-8.3 (test mexw=652) ALBUMIN (BEAKER) (test 3.0 g/dL 3.5-5.0 oqev=0395) ALKALINE PHOSPHATASE 31 U/L 40-150 (BEAKER) (test ibvp=105) BILIRUBIN TOTAL (BEAKER) 0.4 mg/dL 0.2-1.2 (test nouk=680) SODIUM (BEAKER) (test 143 meq/L 136-145 anja=747) POTASSIUM (BEAKER) (test 2.9 meq/L 3.5-5.1 apvb=388) CHLORIDE (BEAKER) (test 109 meq/L 98-107 kadj=902) CO2 (BEAKER) (test 27 meq/L 22-29 eflp=920) BLOOD UREA NITROGEN 15 mg/dL 7-21 (BEAKER) (test kidx=585) CREATININE (BEAKER) (test 0.70 mg/dL 0.57-1.25 xnsc=503) GLUCOSE RANDOM (BEAKER) 215 mg/dL 70-105 (test ztqa=118) CALCIUM (BEAKER) (test 7.9 mg/dL 8.4-10.2 gvci=674) AST (SGOT) (BEAKER) (test 10 U/L 5-34 ujra=842) ALT (SGPT) (BEAKER) (test 7 U/L 6-55 zanb=616) EGFR (BEAKER) (test 81 mL/min/1.73 sq m ESTIMATED GFR IS NOT vpeq=5174) ACCURATE CREATININE CLEARANCE IN PREDICTING GLOMERULAR FILTRATION RATE. ESTIMATED GFR IS NOT APPLICABLE FOR DIALYSIS PATIENTS. [id number] 02:04:00 Test Item Value Reference Range Comments LIPASE (BEAKER) (test xvob=087) 730 U/L 8-78 [id number] 02:04:00 Test Item Value Reference Range Comments AMYLASE (BEAKER) (test lddf=704) 226 U/L 25-125 PROTHROMBIN TIME/[id number] 01:45:00 Test Item Value Reference Range Comments PROTIME (BEAKER) (test sybv=396) 23.9 seconds 11.7-14.7 INR (BEAKER) (test leas=008) 2.1 <=5.9 RECOMMENDED COUMADIN/WARFARIN INR THERAPY RANGESSTANDARD DOSE: 2.0 - 3.0 Includes: PROPHYLAXIS forvenous thrombosis, systemic embolization; TREATMENT for venous thrombosis and/or pulmonary embolus.HIGH RISK: Target INR is 2.5-3.5 for patients with mechanical heart valves.[id number] 01:45:00 Test Item Value Reference Range Comments PARTIAL THROMBOPLASTIN TIME (BEAKER) (test 32.4 seconds 22.5-36.0 bjta=213) CBC W/PLT COUNT & AUTO [id number] 01:38:00 Test Item Value Reference Range Comments WHITE BLOOD CELL COUNT (BEAKER) (test wtgo=650) 4.9 K/ L 3.5-10.5 RED BLOOD CELL COUNT (BEAKER) (test hdrk=331) 3.21 M/ L 3.93-5.22 HEMOGLOBIN (BEAKER) (test fcha=299) 10.2 GM/DL 11.2-15.7 HEMATOCRIT (BEAKER) (test ljpt=015) 31.6 % 34.1-44.9 MEAN CORPUSCULAR VOLUME (BEAKER) (test cjpt=554) 98.4 fL 79.4-94.8 MEAN CORPUSCULAR HEMOGLOBIN (BEAKER) (test 31.8 pg 25.6-32.2 shdj=730) MEAN CORPUSCULAR HEMOGLOBIN CONC (BEAKER) (test 32.3 GM/DL 32.2-35.5 vhls=611) RED CELL DISTRIBUTION WIDTH (BEAKER) (test 14.4 % 11.7-14.4 nfba=760) PLATELET COUNT (BEAKER) (test gupt=334) 137 K/CU MM 150-450 MEAN PLATELET VOLUME (BEAKER) (test qigf=719) 11.9 fL 9.4-12.3 NUCLEATED RED BLOOD CELLS (BEAKER) (test 0 /100 WBC 0-0 invw=926) NEUTROPHILS RELATIVE PERCENT (BEAKER) (test 76 % jwtu=716) LYMPHOCYTES RELATIVE PERCENT (BEAKER) (test 19 % sesv=805) MONOCYTES RELATIVE PERCENT (BEAKER) (test 4 % kjwi=023) EOSINOPHILS RELATIVE PERCENT (BEAKER) (test 0 % flzt=846) BASOPHILS RELATIVE PERCENT (BEAKER) (test 0 % yoia=860) NEUTROPHILS ABSOLUTE COUNT (BEAKER) (test 3.73 K/ L 1.56-6.13 ejen=321) LYMPHOCYTES ABSOLUTE COUNT (BEAKER) (test 0.92 K/ L 1.18-3.74 jdfd=611) MONOCYTES ABSOLUTE COUNT (BEAKER) (test 0.21 K/ L 0.24-0.36 kzor=930) EOSINOPHILS ABSOLUTE COUNT (BEAKER) (test 0.00 K/ L 0.04-0.36 udpm=924) BASOPHILS ABSOLUTE COUNT (BEAKER) (test 0.01 K/ L 0.01-0.08 oklp=183) IMMATURE GRANULOCYTES-RELATIVE PERCENT (BEAKER) 1 % 0-1 (test wfvl=8709)
--- NOTE | 2018-10-26 12:37 | RAD REPORT ---
EXAM DESCRIPTION: RAD - Chest Single View - 10/26/2018 12:30 pm CLINICAL HISTORY: PAIN Chest pain. COMPARISON: Chest Single View dated 10/08/2018; Chest Single View dated 10/06/2018; Chest Single View da komal 09/27/2018; Chest Single View dated 09/10/2018 FINDINGS: Portable technique limits examination quality. Small calcified granuloma is present in the right upper lobe. The lungs otherwise clear of acute infi ltrate. The heart is normal in size. No displaced fractures. IMPRESSION: No acute intrathoracic process suspected.
[2018-10-26 12:56] LABS: Absolute Lymphocytes (CBC) 1.1 K/uL (0.7-4.9); Absolute Monocytes 0.3 K/uL (0.1-1.3); Absolute Neutrophil 3.8 K/uL (1.8-8.0); Basophils % 0.7 % (0-1.3); Eosinophils % 1.1 % (0-4.4); Hematocrit 36.8 % (36.0-45.0); Lymphocytes % 20.4 % (15.3-44.8); MPV 9.7 fL (7.6-11.3); Monocytes % 5.6 % (3.3-12.3); RBC Red Blood Cell Count 3.99 M/uL (3.86-4.86)
[2018-10-26 12:58] LABS: Protime INR 2.16
[2018-10-26 13:26] LABS: ALT/SGPT 20 U/L (12-78); AST/SGOT 15 U/L (15-37); Albumin 3.3 g/dL (3.4-5.0); Alkaline Phosphatase 55 U/L (45-117); BUN Blood Urea Nitrogen 26 mg/dL (7-18); Bicarbonate 27 mmol/L (21-32); Bilirubin Direct 0.1 mg/dL (0-0.2); Bilirubin Total 0.5 mg/dL (0.2-1.0); Glucose Level 104 mg/dL (74-106); Lipase 287 U/L (73-393); Magnesium 1.7 mg/dL (1.8-2.4); NT PRO-BNP 461 pg/mL (<450); Potassium 3.4 mmol/L (3.5-5.1); Protein, Total 6.3 g/dL (6.4-8.2); Sodium Level 148 mmol/L (136-145); Troponin (Emerg Dept Use Only) < 0.02 ng/mL (0.0-0.045)
[2018-10-26 13:28] LABS: Thyroid Stimulating Hormone < 0.005 uIU/mL (0.360-3.740)
[2018-10-26] MEDS ORDERED: NA CHLORIDE 0.9% 1,000 ML ONE (14:33)
[2018-10-26] MEDS ORDERED: POTASSIUM CL SA 10 MEQ TAB PO ONE (14:33)
[2018-10-26] MEDS ORDERED: MAGNESIUM SULFATE 1 gm IVPB 1 GM/100 ML BAG IV ONE (14:33)
[2018-10-26] MEDS ORDERED: HYDROCORTISONE SUC 100 MG INJ ONE (15:41)
--- NOTE | 2018-10-26 15:42 | ER ---
Nurse's Notes [facility] Name: Emelia Payan Age: 78 yrs Sex: Female : 1940 Arrival Date: 10/26/2018 Time: 11:38 Bed 8 Private MD: Dany Iraheta Diagnosis: Dehydration;Hypomagnesemia;Hypokalemia Presentation: 10/26 11:41 Presenting complaint: Patient states: generalized weakness x 6 months ago, pt reports aa5 weakness got worse today. Pt also c/o chest pain and nausea today. Denies vomiting, denies diarrhea. 11:41 Transition of care: patient was not received from another setting of care. Risk aa5 Assessment: Do you want to hurt yourself or someone else? Patient reports no desire to harm self or others. Care prior to arrival: None. 11:41 Method Of Arrival: Wheelchair aa5 11:41 Acuity: EDIS 3 aa5 12:00 Onset of symptoms was October 26, 2018. Initial Sepsis Screen: Does the patient meet jl7 any 2 criteria? No. Patient's initial sepsis screen is negative. Does the patient have a suspected source of infection? No. Patient's initial sepsis screen is negative. Historical: - Allergies: 11:41 Cipro; aa5 11:41 Xarelto; aa5 - Home Meds: 14:38 hydrocortisone 10 mg Oral tab 2 tabs twice a day [Active]; Vitamin D3 5,000 unit Oral jl7 tab twice a day [Active]; levothyroxine 112 mcg tab 1 tab once daily [Active]; glipizide 2.5 mg Oral tr24 one tab M, W, F [Active]; liothyronine 5 mcg Oral tab 1 tab once daily [Active]; amlodipine 5 mg tab 1 tab once daily [Active]; warfarin 3 mg Oral tab 1 tab once daily [Active]; sotalol 160 mg Oral tab 1 tab 2 times per day [Active]; sulfamethoxazole-trimethoprim Oral [Active]; fenofibrate 48 mg Oral 1 tab once daily [Active]; losartan 100 mg Oral tab 1 tab once daily [Active]; clonazepam 0.5 mg Oral tab 1 tab 2 times per day [Active]; Creon 36,000-114,000- 180,000 unit Oral cpDR 1 cap 3 times per day [Active]; Dexilant 60 mg Oral CpDB 1 cap once daily [Active]; Omnitrope 5 mg/1.5 mL (3.3 mg/mL) subcutaneous crtg once daily [Active]; - PMHx: 11:41 adrenal insuficiency; Anxiety; Atrial Fib; CHF; Diabetes - IDDM; DVT; Hyperlipidemia; aa5 Hypertension; Hypothyroidism; Pancreatitis; - Immunization history:: Flu vaccine is up to date. - Social history:: Smoking status: Patient/guardian denies using tobacco. - Ebola Screening: : No symptoms or risks identified at this time. Screenin:47 Abuse screen: Denies threats or abuse. Denies injuries from another. Nutritional jl7 screening: No deficits noted. Tuberculosis screening: No symptoms or risk factors identified. Fall Risk IV access (20 points). Total Dickens Fall Scale indicates No Risk (0-24 pts). Assessment: 12:47 General: Appears in no apparent distress. uncomfortable, Behavior is calm, cooperative, jl7 appropriate for age. Pain: Complains of pain in chest Pain currently is 4 out of 10 on a pain scale. Neuro: Level of Consciousness is awake, alert, obeys commands, Oriented to person, place, time, situation. Cardiovascular: Patient's skin is warm and dry. Respiratory: Airway is patent Respiratory effort is even, unlabored, Respiratory pattern is regular, symmetrical. Derm: Skin is pink, warm \T\ dry. 13:45 Reassessment: Patient appears in no apparent distress at this time. No changes from jl7 previously documented assessment. Patient and/or family updated on plan of care and expected duration. Pain level reassessed. Patient is alert, oriented x 3, equal unlabored respirations, skin warm/dry/pink. 14:43 Reassessment: Patient appears in no apparent distress at this time. No changes from jl7 previously documented assessment. Patient and/or family updated on plan of care and expected duration. Pain level reassessed. Patient is alert, oriented x 3, equal unlabored respirations, skin warm/dry/pink. 15:45 Reassessment: Patient appears in no apparent distress at this time. No changes from jl7 previously documented assessment. Patient and/or family updated on plan of care and expected duration. Pain level reassessed. Patient is alert, oriented x 3, equal unlabored respirations, skin warm/dry/pink. Vital Signs: 11:42 BP 147 / 66; Pulse 66; Resp 18 S; Temp 98.8(O); Pulse Ox 96% on R/A; Weight 74.84 kg aa5 (R); Height 5 ft. 4 in. (162.56 cm) (R); Pain 6/10; 12:47 BP 144 / 88; Pulse 65; Resp 16 S; Pulse Ox 97% on R/A; jl7 13:30 BP 130 / 58; Pulse 60; Resp 16 S; Pulse Ox 98% on R/A; jl7 14:38 BP 150 / 57; Pulse 61; Resp 16 S; Pulse Ox 99% on R/A; jl7 15:45 BP 138 / 81; Pulse 59; Resp 16 S; Pulse Ox 99% on R/A; jl7 11:42 Body Mass Index 28.32 (74.84 kg, 162.56 cm) aa5 ED Course: 11:38 Patient arrived in ED. mr 11:39 Dany Iraheta DO is Private Physician. mr 11:41 Arm band placed on Patient placed in an exam room, on a stretcher. aa5 11:49 Patrick Delgado PA is PHCP. jr8 11:49 Nicola Platt MD is Attending Physician. jr8 11:50 Triage completed. aa5 11:55 Taurus Nevarez, ODILON is Primary Nurse. jl7 12:09 EKG done, by assistant technician. reviewed by Patrick FISHER. at1 12:25 X-ray completed. Portable x-ray completed in exam room. Patient tolerated procedure jb2 well. 12:37 XRAY Chest (1 view) In Process Unspecified. EDMS 12:47 Patient has correct armband on for positive identification. Bed in low position. Call jl7 light in reach. Side rails up X2. clinical administrator on. Pulse ox on. NIBP on. Warm blanket given. 12:47 Initial lab(s) drawn, by me, sent to lab. Inserted saline lock: 20 gauge in left jl7 antecubital area, using aseptic technique. Blood collected. 16:46 No provider procedures requiring assistance completed. IV discontinued, intact, jl7 bleeding controlled, No redness/swelling at site. Pressure dressing applied. Administered Medications: 14:30 Drug: Potassium Chloride 20 mEq Route: PO; jl7 15:36 Follow up: Response: No adverse reaction jl7 14:35 Drug: Magnesium Sulfate 1 grams Route: IVPB; Infused Over: 1 hrs; Site: left 7 antecubital; 15:35 Follow up: Response: No adverse reaction; IV Status: Completed infusion jl7 14:35 Drug: NS 0.9% 1000 ml Route: IV; Rate: 1000 ml; Site: left antecubital; jl7 15:37 Follow up: IV Status: Completed infusion jl7 15:35 Drug: Solu-CORTEF 50 mg Route: IVP; Site: left antecubital; jl7 16:00 Follow up: Response: No adverse reaction jl7 Outcome: 15:40 Discharge ordered by . jr8 16:46 Discharged to home via wheelchair, with family. jl7 16:46 Condition: stable 16:46 Discharge instructions given to patient, family, Instructed on discharge instructions, follow up and referral plans. Demonstrated understanding of instructions, follow-up care. 16:47 Patient left the ED. jl7 Signatures: Dispatcher [employer] Polly Cordova mr [email or web address] Giuliana Nichols, RN RN aa5 Patrikc Delgado PA PA jr8 Mallory Dillon, oracle adf developer EKG Rocco1 Taurus Nevarez, RN RN jl7
--- NOTE | 2018-10-26 15:42 | EDPHYS ---
Physician Documentation [facility] Name: Emelia Payan Age: 78 yrs Sex: Female : 1940 Arrival Date: 10/26/2018 Time: 11:38 Bed 8 Private MD: Dany Iraheta ED Physician Nicola Platt HPI: 10/26 12:07 This 78 yrs old Female presents to ER via Wheelchair with complaints of jr8 Weakness. 12:07 Patient stated that she had CP, palpitations, and felt dizzy last night. Continued jr8 through this morning and now having nausea and loose stools. Stated that she has had some of these symptoms in the past and was from the adrenal insufficiency but that the CP and palpitations are not normal for her. . Severity of symptoms: At their worst the symptoms were moderate in the emergency department the symptoms are unchanged. The patient has not experienced similar symptoms in the past. The patient has not recently seen a physician. Historical: - Allergies: 11:41 Cipro; aa5 11:41 Xarelto; aa5 - Home Meds: 14:38 hydrocortisone 10 mg Oral tab 2 tabs twice a day [Active]; Vitamin D3 5,000 unit Oral jl7 tab twice a day [Active]; levothyroxine 112 mcg tab 1 tab once daily [Active]; glipizide 2.5 mg Oral tr24 one tab M, W, F [Active]; liothyronine 5 mcg Oral tab 1 tab once daily [Active]; amlodipine 5 mg tab 1 tab once daily [Active]; warfarin 3 mg Oral tab 1 tab once daily [Active]; sotalol 160 mg Oral tab 1 tab 2 times per day [Active]; sulfamethoxazole-trimethoprim Oral [Active]; fenofibrate 48 mg Oral 1 tab once daily [Active]; losartan 100 mg Oral tab 1 tab once daily [Active]; clonazepam 0.5 mg Oral tab 1 tab 2 times per day [Active]; Creon 36,000-114,000- 180,000 unit Oral cpDR 1 cap 3 times per day [Active]; Dexilant 60 mg Oral CpDB 1 cap once daily [Active]; Omnitrope 5 mg/1.5 mL (3.3 mg/mL) subcutaneous crtg once daily [Active]; - PMHx: 11:41 adrenal insuficiency; Anxiety; Atrial Fib; CHF; Diabetes - IDDM; DVT; Hyperlipidemia; aa5 Hypertension; Hypothyroidism; Pancreatitis; - Immunization history:: Flu vaccine is up to date. - Social history:: Smoking status: Patient/guardian denies using tobacco. - Ebola Screening: : No symptoms or risks identified at this time. ROS: 12:07 Eyes: Negative for injury, pain, redness, and discharge, ENT: Negative for injury, jr8 pain, and discharge, Neck: Negative for injury, pain, and swelling, Back: Negative for injury and pain, MS/Extremity: Negative for injury and deformity, Skin: Negative for injury, rash, and discoloration, Neuro: Negative for headache, weakness, numbness, tingling, and seizure. 12:07 Cardiovascular: Positive for chest pain, palpitations, Negative for edema, orthopnea, paroxysmal nocturnal dyspnea. 12:07 Respiratory: Positive for shortness of breath, Negative for cough, dyspnea on exertion, sputum production, wheezing. 12:07 Abdomen/GI: Positive for abdominal pain, nausea, Negative for vomiting, diarrhea, abdominal cramps, abdominal distension, anorexia, dysphagia, hematemesis, black/tarry stool, rectal pain, rectal bleeding, bowel incontinence, flatulence. Exam: 12:11 Eyes: Pupils equal round and reactive to light, extra-ocular motions intact. Lids and jr8 lashes normal. Conjunctiva and sclera are non-icteric and not injected. Cornea within normal limits. Periorbital areas with no swelling, redness, or edema. ENT: Nares patent. No nasal discharge, no septal abnormalities noted. Tympanic membranes are normal and external auditory canals are clear. Oropharynx with no redness, swelling, or masses, exudates, or evidence of obstruction, uvula midline. Mucous membranes moist. Neck: Trachea midline, no thyromegaly or masses palpated, and no cervical lymphadenopathy. Supple, full range of motion without nuchal rigidity, or vertebral point tenderness. No Meningismus. Cardiovascular: Regular rate and rhythm with a normal S1 and S2. No gallops, murmurs, or rubs. Normal PMI, no JVD. No pulse deficits. Respiratory: Lungs have equal breath sounds bilaterally, clear to auscultation and percussion. No rales, rhonchi or wheezes noted. No increased work of breathing, no retractions or nasal flaring. Back: No spinal tenderness. No costovertebral tenderness. Full range of motion. Skin: Warm, dry with normal turgor. Normal color with no rashes, no lesions, and no evidence of cellulitis. MS/ Extremity: Pulses equal, no cyanosis. Neurovascular intact. Full, normal range of motion. Neuro: Awake and alert, GCS 15, oriented to person, place, time, and situation. Cranial nerves II-XII grossly intact. Motor strength 5/5 in all extremities. Sensory grossly intact. Cerebellar exam normal. Normal gait. 12:11 Abdomen/GI: Inspection: abdomen appears normal, Bowel sounds: active, all quadrants, Palpation: soft, in all quadrants, mild abdominal tenderness, in the right upper quadrant, mass, is not appreciated, rebound tenderness, is not appreciated, voluntary guarding, is not appreciated, involuntary guarding, is not appreciated, no appreciated organomegaly, Indicators: McBurney's point is not tender, Ricks's sign is negative, Rovsing's sign is negative, Liver: tenderness, is not appreciated. Vital Signs: 11:42 BP 147 / 66; Pulse 66; Resp 18 S; Temp 98.8(O); Pulse Ox 96% on R/A; Weight 74.84 kg aa5 (R); Height 5 ft. 4 in. (162.56 cm) (R); Pain 6/10; 12:47 BP 144 / 88; Pulse 65; Resp 16 S; Pulse Ox 97% on R/A; jl7 13:30 BP 130 / 58; Pulse 60; Resp 16 S; Pulse Ox 98% on R/A; jl7 14:38 BP 150 / 57; Pulse 61; Resp 16 S; Pulse Ox 99% on R/A; jl7 15:45 BP 138 / 81; Pulse 59; Resp 16 S; Pulse Ox 99% on R/A; jl7 11:42 Body Mass Index 28.32 (74.84 kg, 162.56 cm) aa5 MDM: 11:49 Patient medically screened. jr8 15:25 Data reviewed: vital signs, nurses notes, lab test result(s), EKG, radiologic studies, jr8 plain films, and as a result, I will discharge patient. Data interpreted: Pulse oximetry: on room air is 99 %. Interpretation: normal. Counseling: I had a detailed discussion with the patient and/or guardian regarding: the historical points, exam findings, and any diagnostic results supporting the discharge/admit diagnosis, lab results, radiology results, the need for outpatient follow up, Endocrinology . Response to treatment: the patient's symptoms have markedly improved after treatment, patient is well hydrated. ED course: Discussed with patient that her thyroid medicine needs to be adjusted. That she was dehydrated and had mild electrolyte imbalance. Otherwise no acute findings. Patient feels much better and will follow up. 10/26 12:11 Order name: Basic Metabolic Panel; Complete Time: 13:34 10/26 12:11 Order name: CBC with Diff; Complete Time: 13:00 10/26 12:11 Order name: LFT's; Complete Time: 13:34 10/26 12:11 Order name: Magnesium; Complete Time: 13:34 10/26 12:11 Order name: NT PRO-BNP; Complete Time: 13:34 10/26 12:11 Order name: PT-INR; Complete Time: 13:07 10/26 12:11 Order name: Troponin (emerg Dept Use Only); Complete Time: 13:34 10/26 12:11 Order name: XRAY Chest (1 view); Complete Time: 12:45 10/26 12:11 Order name: Cortisol; Complete Time: 13:54 10/26 12:11 Order name: TSH; Complete Time: 13:34 10/26 12:11 Order name: Lipase; Complete Time: 13:34 10/26 12:11 Order name: EKG; Complete Time: 12:14 10/26 12:11 Order name: Cardiac monitoring; Complete Time: 12:44 10/26 12:11 Order name: EKG - Nurse/Tech; Complete Time: 12:44 10/26 12:11 Order name: IV Saline Lock; Complete Time: 12:46 10/26 12:11 Order name: Labs collected and sent; Complete Time: 12:46 10/26 12:11 Order name: O2 Per Protocol; Complete Time: 12:46 10/26 12:11 Order name: O2 Sat Monitoring; Complete Time: 12:46 Administered Medications: 14:30 Drug: Potassium Chloride 20 mEq Route: PO; jl7 15:36 Follow up: Response: No adverse reaction jl7 14:35 Drug: Magnesium Sulfate 1 grams Route: IVPB; Infused Over: 1 hrs; Site: left jl7 antecubital; 15:35 Follow up: Response: No adverse reaction; IV Status: Completed infusion jl7 14:35 Drug: NS 0.9% 1000 ml Route: IV; Rate: 1000 ml; Site: left antecubital; jl7 15:37 Follow up: IV Status: Completed infusion jl7 15:35 Drug: Solu-CORTEF 50 mg Route: IVP; Site: left antecubital; 7 16:00 Follow up: Response: No adverse reaction jl7 Disposition: 10/26/18 15:40 Discharged to Home. Impression: Dehydration, Hypomagnesemia, Hypokalemia. - Condition is Stable. - Discharge Instructions: Dehydration, Elderly, Hyperthyroidism, Hypomagnesemia. - Medication Reconciliation Form, Thank You Letter, Antibiotic Education, Prescription Opioid Use form. - Follow up: Private Physician; When: 2 - 3 days; Reason: Recheck today's complaints, Continuance of care, Re-evaluation by your physician. - Problem is new. - Symptoms have improved. Signatures: Dispatcher [employer] EDMS Giuliana Nichols RN RN aa5 Patrick Delgado PA PA jr8 Taurus Nevarez RN RN jl7 Corrections: (The following items were deleted from the chart) 15:41 15:40 10/26/2018 15:40 Discharged to Home. Impression: Dehydration; Hypomagnesemia; jr8 Hypokalemia; Hypothyroidism, unspecified. Condition is Stable. Forms are Medication Reconciliation Form, Thank You Letter, Antibiotic Education, Prescription Opioid Use. Follow up: Private Physician; When: 2 - 3 days; Reason: Recheck today's complaints, Continuance of care, Re-evaluation by your physician. Problem is new. Symptoms have improved. jr8 16:47 15:41 10/26/2018 15:40 Discharged to Home. Impression: Dehydration; Hypomagnesemia; jl7 Hypokalemia. Condition is Stable. Discharge Instructions: Dehydration, Elderly, Hypomagnesemia, Hyperthyroidism. Forms are Medication Reconciliation Form, Thank You Letter, Antibiotic Education, Prescription Opioid Use. Follow up: Private Physician; When: 2 - 3 days; Reason: Recheck today's complaints, Continuance of care, Re-evaluation by your physician. Problem is new. Symptoms have improved. jr8
[2018-10-26 17:02] VITALS: TEMP 98.8
[2018-10-26 17:06] VITALS: O2SAT 99
[2018-10-26 17:08] VITALS: BP 138/81
--- NOTE | 2018-10-26 21:38 | EKG ---
Test Date: 2018-10-26 Test Time: 11:55:06 Law Firm Receptionist: JOEL MEASUREMENT RESULTS: Intervals: Rate: 65 [place]: 122 QRSD: 76 QT: 462 QTc: 480 [place]: P: 50 NJ: 122 QRS: 8 T: -21 INTERPRETIVE STATEMENTS: Normal sinus rhythm Nonspecific T wave abnormality Prolonged QT Abnormal ECG Compared to ECG 10/08/2018 08:22:53 T-wave abnormality now present Prolonged QT interval now present Sinus arrhythmia no longer present Electronically Signed On 10-26-18 21:36:19 FOOD EXPEDITOR by Geovany Metz
== END 2018-10-26 16:47 | disposition home or self-care (01) ==
LOC: ER 11:36
DX: E86.0 Dehydration (principal); E83.42 Hypomagnesemia; E87.6 Hypokalemia; I10 Essential (primary) hypertension; E11.9 Type 2 diabetes mellitus without complications; E03.9 Hypothyroidism, unspecified; I48.91 Unspecified atrial fibrillation; I50.9 Heart failure, unspecified; Z79.01 Long term (current) use of anticoagulants; Z86.718 Personal history of other venous thrombosis and embolism; Z88.8 Allergy status to other drugs, medicaments and biological substances
CPT/HCPCS: 36415; 71045; 80048; 80076; 82533; 83690; 83735; 83880; 84443; 84484; 85025; 85610; 93005; 96365; 96375; 99284; J1720; J3475; J7030

== ENCOUNTER 2018-10-31 01:49 | Emergency (ER) | payer OTHER ==
--- OUTSIDE RECORDS SUMMARY | 2018-10-31 01:52 | XMS REPORT | Clinical Summary ---
:1940 Author Organization [facility] Address [address] [place] [address] Care Team Providers Name Role Phone Unavailable [...] Marc Fernandez III, MD 03/14/2018 Surgery Gastroenterology [facility] UPPER ENDOSCOPY,BIOPSY [facility] 03/14/2018 Hospital Gastroenterology [facility] Encounter [facility] 03/13/2018 Hospital Pre-Admission Testing [facility] Encounter [facility] Diana, [place] [facility] Preadmit Phone 01/13/2018 Hospital Intensive Care Samaria [...] Medicine Samaria Seals Tachycardia MD Natanael after 10/30/2017 Family History Medical History Relation Name Comments [...] CULTURE Routine 01/14/2018 1:26 AM CDT after 10/30/2017 Results REPORT OF PROCEDURE - ENDOSCOPY URL (03/14/2018 12:19 PM CDT) Narrative Performed At POC-Glucose meter (03/14/2018 11:55 AM CDT)Only the most recent of17 resultswithin the time period is included. POC-Glucose Meter 75Comment: TESTED AT 70 - 110 mg/dL [facility] [place] [place] [address] [facility] [id number] Specimen Blood Performing Organization Address City/State/Zipcode Phone Number [place] [id number] [place], [place] [id number] [phone] CENTER Tissue Exam (03/14/2018 11:15 AM CDT) Case Report Surgical Pathology Report Case: [id number] [facility] Authorizing Provider:Luiz Hayesected: 03/14/2018 1115 [facility] Ordering Location: [facility] Endoscopy Received: 03/14/2018 1351 Services Pathologist: Mara Barboza MD Specimens: A) - Polyp, Duodenum B) - Stomach,Antrum, bx C) - Biopsy, Gastric, gastric body D) - Biopsy, Esophagus, random ADDENDUM THIS ADDENDUM IS ISSUED TO REPORT THE RESULT OF IMMUNOHISTOCHEMICAL STUDY FOR HELICOBACTER PYLORI OM SPECIMEN B: [facility] - NEGATIVE [facility] CPT CODE: 56833 DIAGNOSIS A. DUODENUM, ENDOSCOPIC POLYPECTOMY: [facility] - COMPATIBLE WITH PEPTIC DUODENITIS [facility] - NO FEATURES OF CELIAC DISEASE SEEM [...] MALIGNANCY SEEN Signing Pathologist Direct Phone Line: [phone] CPT Code(s) 41959 X 4; 14729 X 2 [facility] SPECIMEN SOURCE A. Polyp, duodenum. B. Stomach [facility] antrum. C. Biopsy, gastric, [facility] description gastric body. D. Biopsy, esophagus, description random GROSS DESCRIPTION Part A. Received in formalin, labeled "polyp, duodenum", is a 0.5 x 0.4 x 0.2 cm polypoid shaped brown-chavez fragment of soft tissue. The base is inked green, and the polyp is bisected and submitted entirely in one cassette (A1). [facility] Part B. Received in formalin labeled [...] incorporated in the diagnostic report above: [facility] WARTHIN-STARRY X 2 [facility] Specimen Tissue - Polyp, Duodenum Performing Organization Address City/State/Zipcode Phone Number [facility] [address] [place] [address] [phone] CENTER EKG-SCANNED (01/20/2018 3:11 PM CDT) Narrative Performed At RHYTHM STRIP - SCAN (01/20/2018 3:11 PM CDT) Narrative Performed At ECHOCARDIOGRAM REPORT - SCAN (01/19/2018 2:21 PM CDT) Narrative Performed At 2D Echo W/Doppler(CW/PW/Color) (01/18/2018 1:59 PM CDT) Ejection Fraction [facility] Narrative Performed At Transthoracic Echocardiography Report (TTE) [facility] Demographics Patient NameDANA PAYAN Date of Study 01/18/2018 GenderFemale Visit [id number] [place] Number [id number] Number Date of 1940 Referring Physician MORENA James Age 77 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 WBC 4.8 3.5 - 10.5 K/L [facility] RBC 3.28 (L) 3.93 - 5.22 M/L [facility] Hemoglobin 10.4 (L) 11.2 - 15.7 GM/DL [facility] Hematocrit 32.7 (L) 34.1 - 44.9 % [facility] MCV 99.7 (H) 79.4 - 94.8 fL [facility] MCH 31.7 25.6 - 32.2 pg [facility] MCHC 31.8 (L) 32.2 - 35.5 GM/DL [facility] RDW 14.7 (H) 11.7 - 14.4 % [facility] Platelets 141 (L) 150 - 450 K/CU MM [facility] MPV 11.2 9.4 - 12.3 fL [facility] nRBC 0 0 - 0 /100 WBC [facility] % Neutros 67 % [facility] % Lymphs 26 % [facility] % Monos 5 % [facility] % Eos 1 % [facility] % Baso 0 % [facility] # Neutros 3.21 1.56 - 6.13 K/L [facility] # Lymphs 1.24 1.18 - 3.74 K/L [facility] # Monos 0.23 (L) 0.24 - 0.36 K/L [facility] # Eos 0.06 0.04 - 0.36 K/L [facility] # Baso 0.02 0.01 - 0.08 K/L [facility] Immature Granulocytes-Relative 1 0 - 1 % [facility] Specimen Blood - Arm, Left Performing Organization Address City/State/Zipcode Phone Number [facility] [address] [place] [address] CENTER Prothrombin time/INR (01/18/2018 3:49 AM CDT)Only the most recent of7 resultswithin the time period is included. Protime 23.7 (H) 11.7 - 14.7 seconds [facility] INR 2.1 <=5.9 [facility] Specimen Blood - Arm, Left Narrative Performed At [facility] RECOMMENDED COUMADIN/WARFARIN INR THERAPY RANGES STANDARD DOSE: 2.0 - 3.0 Includes: PROPHYLAXIS for venous thrombosis, systemic embolization; TREATMENT for venous thrombosis and/or pulmonary embolus. HIGH RISK: Target INR is 2.5-3.5 for patients with mechanical heart valves. Performing Organization Address City/[facility]/Zipcode Phone Number [facility] [address] [place] [address] [place] Magnesium (01/18/2018 3:49 AM CDT)Only the most recent of8 resultswithin the time period is included. Magnesium 1.7 1.6 - 2.6 mg/dL [facility] Specimen Blood - Arm, Left Performing Organization Address [facility] Phone Number [address] [address] [place] Comprehensive metabolic panel (01/18/2018 3:49 AM CDT)Only the most recent of6 resultswithin the time period is included. Protein, Total 5.2 (L) 6.0 - 8.3 gm/dL [facility] Albumin 3.0 (L) 3.5 - 5.0 g/dL [facility] Alkaline Phosphatase 39 (L) 40 - 150 U/L [facility] Total Bilirubin 0.4 0.2 - 1.2 mg/dL [facility] Sodium 145 136 - 145 meq/L [facility] Potassium 3.6 3.5 - 5.1 meq/L [facility] Chloride 109 (H) 98 - 107 meq/L [facility] CO2 28 22 - 29 meq/L [facility] BUN 8 7 - 21 mg/dL [facility] Creatinine 0.70 0.57 - 1.25 mg/dL [facility] Glucose 107 (H) 70 - 105 mg/dL [facility] Calcium 8.4 8.4 - 10.2 mg/dL [facility] AST 9 5 - 34 U/L [facility] ALT <6 (L) 6 - 55 U/L [facility] EGFR 81Comment: ESTIMATED GFR mL/min/1.73 sq m [facility] IS NOT ACCURATE [facility] CREATININE CLEARANCE IN PREDICTING GLOMERULAR FILTRATION RATE. ESTIMATED GFR IS NOT APPLICABLE FOR DIALYSIS PATIENTS. Specimen Blood - Arm, Left Performing Organization Address [facility] Phone Number [facility] [address] [place] [address] CENTER ECG 12 lead (01/17/2018 7:28 AM CDT)Only the most recent of2 resultswithin the time period is included. Narrative Performed At Ventricular Rate 62 BPM GE MUSE Atrial Rate 62 BPM P-R Interval 126 ms QRS Duration 72 ms Q-T Interval 392 ms QTC Calculation(Bazett) 397 ms P [place] 43 degrees R [place] 0 degrees T [place] 4 degrees Normal sinus rhythm Normal ECG [...] 392 ms QTC Calculation(Bazett) 397 ms P [place] 43 degrees R [place] 0 degrees T [place] 4 degrees Normal sinus rhythm Normal ECG When compared with ECG of 14-JAN-2018 07:47, Sinus rhythm has replaced Atrial fibrillation Vent. rate has decreased BY 67 BPM Confirmed by Myriam CABELLO BASANT ([id number]) on 01/17/2018 9:57:49 PM Performing Organization Address [facility] Phone Number [employer] MUSE T3, free (01/17/2018 3:19 AM CDT) T3, Free 1.31 (L) 1.71 - 3.71 pg/mL [facility] Specimen Blood - Central Venous Line Performing Organization Address City/[facility] Phone Number [facility] [address] [address] [phone] CENTER T3 (01/17/2018 3:19 AM CDT) T3, Total 41 (L) 48 - 159 ng/dL [facility] Specimen Blood - Central Venous Line Performing Organization Address [facility] Phone Number [address] [address] CENTER Lipase (01/17/2018 3:19 AM CDT)Only the most recent of2 resultswithin the time period is included. Lipase 471 (H) 8 - 78 U/L [facility] Specimen Blood - Central Venous Line Performing Organization Address [facility] Phone Number [address] [address] [phone] [place] Basic Metabolic Panel (01/16/2018 4:26 PM CDT) Sodium 143 136 - 145 meq/L [facility] Potassium 4.1 3.5 - 5.1 meq/L [facility] Chloride 109 (H) 98 - 107 meq/L [facility] CO2 24 22 - 29 meq/L [facility] BUN 9 7 - 21 mg/dL [facility] Creatinine 0.74 0.57 - 1.25 mg/dL [facility] Glucose 249 (H) 70 - 105 mg/dL [facility] Calcium 8.1 (L) 8.4 - 10.2 mg/dL [facility] EGFR 76Comment: ESTIMATED GFR IS mL/min/1.73 sq m [facility] NOT ACCURATE CREATININE [facility] CENTER CLEARANCE IN PREDICTING GLOMERULAR FILTRATION RATE. ESTIMATED GFR IS NOT APPLICABLE FOR DIALYSIS PATIENTS. Specimen Blood Performing Organization Address [facility] Phone Number [address] [address] CENTER Clostridium difficile [facility] Toxin (01/16/2018 4:08 AM CDT) C. Difficle Toxin Negative Negative [facility] C. Difficile [facility] Antigen Positive (A)Comment: C. Negative [facility] difficile present but toxin MEDICAL CENTER not detected. Indicates colonization with non-toxigenic strain or level of toxin below detectable levels. No need for enteric isolation. Treatment is rarely needed (only when strong clinical suspicion for Clostridium difficile infection) Specimen Stool - Stool Narrative Performed At Testing performed by [employer] Rapid Cassette [facility] Assay.For [facility], published sensitivity of the assay is 98.7% compared to cytotoxicity testing.For Toxin AB, published sensitivity is 87.8% and specificity 99.4% compared to cytotoxicity testing. Verification of kit performance was done by the [facility] Microbiology Lab prior to clinical use. Performing Organization Address City/[facility] Phone Number [address] [address] [place] Potassium (01/15/2018 5:00 PM CDT)Only the most recent of2 resultswithin the time period is included. Potassium 4.2 3.5 - 5.1 meq/L [facility] Specimen Blood Performing Organization Address [facility] Phone Number [address] [address] [place] Troponin I (01/14/2018 12:14 PM CDT)Only the most recent of2 resultswithin the time period is included. Troponin I 0.02 0.00 - 0.03 ng/mL [facility] Specimen Blood Narrative Performed At [facility] Troponin I (TnI) levels must be [...] tachyarrhythmia. Performing Organization Address City/State/Zipcode Phone Number [facility] [address] [place] [address] CENTER B-type Natriuretic Factor (BNP) (01/14/2018 11:08 AM CDT) BNP 975 (H) 0 - 100 pg/mL [facility] Specimen Blood Performing Organization Address [facility]/Zipcode Phone Number [facility] [address] [place] [address] [place] US abdomen limited (01/14/2018 6:45 AM CDT) Narrative Performed At FINAL REPORT [email or web address] INDICATION: 77-year-old female with abdominal pain and [...] Ortho Consult Reading Room Performing Organization Address City/[facility] Phone Number [facility] Vitamin B12 and Folate (01/14/2018 6:34 AM CDT) Vitamin B12 1,276 (H) 213 - 816 pg/mL [facility] Folate 8.8 >=7.0 ng/mL [facility] Specimen Blood - Line, Venous Performing Organization Address City/State/Zipcode Phone Number [address] [address] CENTER TSH/Free T4 If Indicated (01/14/2018 6:34 AM CDT) TSH 0.02 (L) 0.35 - 4.94 uIU/mL [facility] Specimen Blood - Line, Venous Performing Organization Address [facility] Phone Number [address] [address] [place] T4, free (01/14/2018 6:34 AM CDT) Free T4 0.83 0.70 - 1.48 ng/dL [facility] Specimen Blood - Line, Venous Performing Organization Address [facility] Phone Number [address] [address] [phone] [place] Lipid panel (01/14/2018 6:34 AM CDT) Triglycerides 171 mg/dL [facility] Cholesterol 123 mg/dL [facility] HDL 25 mg/dL [facility] LDL Calculated 64 mg/dL [facility] Specimen Blood - Line, Venous Narrative Performed At [facility] Triglyceride Reference Range: Low Risk <150 [id number] High Risk 200-499 Very High Risk>=500 Cholesterol Reference Range: Low Risk <200 [id number] High Risk>240 HDL Cholesterol Reference Range: Low Risk >=60 High Risk <40 LDL Cholesterol Reference Range: Optimal<100 Near [id number] [id number] [id number] Very High >=190 Performing Organization Address [facility] Phone Number [address] [address] CENTER Blood culture (01/14/2018 1:28 AM CDT)Only the most recent of2 resultswithin the time period is included. Result No growth in 5 days [facility] Specimen Blood - Line, Venous Performing Organization Address [facility] Phone Number [address] [address] [phone] [place] Urinalysis w/Microscopic (01/14/2018 1:28 AM CDT) Color, UA Yellow [facility] Clarity, UA Clear [facility] Specific [place], UA 1.043 (H) 1.001 - 1.035 [facility] pH, UA 6.5 5.0 - 8.0 [facility] Protein, UA 20 mg/dL (A) Negative [facility] Glucose, UA 1000 mg/dL (A) Negative [facility] Ketones, UA Negative Negative [facility] Bilirubin, UA Negative Negative [facility] Blood, UA Trace (A) Negative [facility] Nitrite, UA Negative Negative [facility] Leukocytes, UA Negative Negative [facility] Urobilinogen, UA 0.2 0.2 - 1.0 mg/dL [facility] RBC, UA 1 /HPF [facility] WBC, UA 3 /HPF [facility] Bacteria, UA Rare [facility] Specimen Source Urine, Taylor [facility] Specimen Urine - Urine, Taylor Performing Organization Address City/[facility]/Zipcode Phone Number [address] [address] [place] Urine culture (01/14/2018 1:28 AM CDT) Result No growth [facility] Specimen Urine - Urine, Taylor Performing Organization Address City/[facility]/Zipcode Phone Number [address] [address] [place] Procalcitonin (01/14/2018 1:26 AM CDT) Procalcitonin 0.41 (H) <0.05 ng/mL [facility] Specimen Blood - Central Venous Line Narrative Performed At [facility] SEPSIS RISK (ng/mL) Low:0.05-0.50 Intermediate: 0.51-2.00 High: >=2.01 Performing Organization Address [facility] Phone Number [address] [address] [place] Lactic acid, venous, whole blood (01/14/2018 1:26 AM CDT) Lactate, Venous 1.3Comment: Specimen 0.5 - 2.2 mmol/L [facility] slightly hemolyzed [facility] Specimen Blood - Central Venous Line Narrative Performed At [facility] Effective 01/07/2016: Units/Reference Range Change New: 0.5-2.2 mmol/LPrevious: 5-20 mg/dL Performing Organization Address [facility] Phone Number [address] [address] [phone] [place] aPTT (01/14/2018 1:26 AM CDT) PTT 32.4 22.5 - 36.0 seconds [facility] Specimen Blood - Central Venous Line Performing Organization Address [facility] Phone Number [address] [address] [place] Amylase (01/14/2018 1:26 AM CDT) Amylase 226 (H) 25 - 125 U/L [facility] Specimen Blood - Central Venous Line Performing Organization Address [facility] Phone Number [address] [address] [phone] [place] after 10/30/2017 Insurance Payer Benefit Plan / Group Subscriber ID Type Phone Address MEDICARE MEDICARE A B xxxxxxxxxx Medicare AETNA - MGD CARE AETNA INDEMNITY NON CONTR xxxxxxxxxx Comm ([place]) [place] [address] Advance Directives For more information, please contact:[address] [place], [place] [phone] Code Status Date Activated Date Inactivated Comments Full Code 01/14/2018 12:36 AM 01/18/2018 6:55 PM This code status was determined by: Patient
--- OUTSIDE RECORDS SUMMARY | 2018-10-31 01:53 | XMS REPORT ---
:1940 [facility] Address [address] [place] [address] Dr. Saunders [address] [place] [id number] Care Team Providers Name Role Phone MACIEJ VILLA Unavailable Unavailable RANCHO SANDOVAL Unavailable Unavailable Problems This patient has no known problems. Allergies, Adverse Reactions, Alerts This patient has no known allergies or adverse reactions. Medications This patient has no known medications. Results Test Description Test Time Test Comments Text Results Atomic Results Result Comments TISSUE EXAM 2018-03-20 13:06:00 Surgical Pathology Report Case: [id number] Authorizing Provider: Maciej Villa Collected: 03/14/2018 1115 Ordering Location: [facility] Endoscopy Received: 03/14/2018 1351 Services Pathologist: Mara Barboza MD Specimens: A) - Polyp, Duodenum B) - Stomach, Antrum, bx C) - Biopsy, Gastric, gastric body D) - Biopsy, Esophagus, random THIS ADDENDUM IS ISSUED TO REPORT THE RESULT OF IMMUNOHISTOCHEMICAL STUDY FOR HELICOBACTER PYLORI OM SPECIMEN B: - NEGATIVE CPT CODE: [id number] electronically signed by Mara Barboza MD on [...] MALIGNANCY SEEN Signing Pathologist Direct Phone Line: [phone] signed by Mara Barboza MD on 03/17/2018 at 10:35 [id number] X 4; [id number] X 2A. Polyp, duodenum. B. Stomach antrum. [...] (BEAKER) (test 75 mg/dL 70-110 TESTED AT [facility] [address] [facility] juxo=8180) [facility] [address] BLOOD [id number] 06:00:00 Test Item Value Reference Range Comments CULTURE (BEAKER) (test nwtr=2668) No growth in 5 days BLOOD [id number] 06:00:00 Test Item Value Reference Range Comments CULTURE (BEAKER) (test mmrx=7842) No growth in 5 days POCT-GLUCOSE [id number] 12:32:00 Test Item Value Reference Range Comments POC-GLUCOSE METER (BEAKER) 217 mg/dL 70-110 TESTED AT [facility] [address] [facility] (test rctq=0826) [facility] [address] POCT-GLUCOSE [id number] 08:36:00 Test Item Value Reference Range Comments POC-GLUCOSE METER (BEAKER) 92 mg/dL 70-110 TESTED AT [place] [id number] [facility] (test yeey=7554) [facility] [address] COMPREHENSIVE METABOLIC [id number] 04:59:00 Test Item Value Reference Range Comments TOTAL PROTEIN (BEAKER) 5.2 gm/dL 6.0-8.3 (test pgkq=372) ALBUMIN (BEAKER) (test 3.0 g/dL 3.5-5.0 bxfb=6256) ALKALINE PHOSPHATASE 39 U/L 40-150 (BEAKER) (test godr=408) BILIRUBIN TOTAL (BEAKER) 0.4 mg/dL 0.2-1.2 (test cwet=845) SODIUM (BEAKER) (test 145 meq/L 136-145 razk=049) POTASSIUM (BEAKER) (test 3.6 meq/L 3.5-5.1 qhqj=730) CHLORIDE (BEAKER) (test 109 meq/L 98-107 wenc=553) CO2 (BEAKER) (test 28 meq/L 22-29 jrft=926) BLOOD UREA NITROGEN 8 mg/dL 7-21 (BEAKER) (test jsvt=466) CREATININE (BEAKER) (test 0.70 mg/dL 0.57-1.25 tdfx=168) GLUCOSE RANDOM (BEAKER) 107 mg/dL 70-105 (test edvk=648) CALCIUM (BEAKER) (test 8.4 mg/dL 8.4-10.2 jdeb=379) AST (SGOT) (BEAKER) (test 9 U/L 5-34 yqoe=384) ALT (SGPT) (BEAKER) (test < U/L 6-55 xbeh=559) EGFR (BEAKER) (test 81 mL/min/1.73 sq m ESTIMATED GFR IS NOT ktou=5520) ACCURATE CREATININE CLEARANCE IN PREDICTING GLOMERULAR FILTRATION RATE. ESTIMATED GFR IS NOT APPLICABLE FOR DIALYSIS PATIENTS. [id number] 04:50:00 Test Item Value Reference Range Comments MAGNESIUM (BEAKER) (test kmbz=857) 1.7 mg/dL 1.6-2.6 PROTHROMBIN [id number] 04:35:00 Test Item Value Reference Range Comments PROTIME (BEAKER) (test hrpo=809) 23.7 seconds 11.7-14.7 INR (BEAKER) (test oitp=582) 2.1 <=5.9 RECOMMENDED COUMADIN/WARFARIN INR THERAPY RANGESSTANDARD DOSE: 2.0 - 3.0 Includes: PROPHYLAXIS forvenous thrombosis, systemic embolization; TREATMENT for venous thrombosis and/or pulmonary embolus.HIGH RISK: Target INR is 2.5-3.5 for patients with mechanical heart valves.CBC W/PLT COUNT & AUTO [id number] 04:24:00 Test Item Value Reference Range Comments WHITE BLOOD CELL COUNT (BEAKER) (test puri=323) 4.8 K/ L 3.5-10.5 RED BLOOD CELL COUNT (BEAKER) (test vyif=075) 3.28 M/ L 3.93-5.22 HEMOGLOBIN (BEAKER) (test szau=580) 10.4 GM/DL 11.2-15.7 HEMATOCRIT (BEAKER) (test xafu=271) 32.7 % 34.1-44.9 MEAN CORPUSCULAR VOLUME (BEAKER) (test ntjw=302) 99.7 fL 79.4-94.8 MEAN CORPUSCULAR HEMOGLOBIN (BEAKER) (test 31.7 pg 25.6-32.2 sqvr=240) MEAN CORPUSCULAR HEMOGLOBIN CONC (BEAKER) (test 31.8 GM/DL 32.2-35.5 uble=671) RED CELL DISTRIBUTION WIDTH (BEAKER) (test 14.7 % 11.7-14.4 ivbg=977) PLATELET COUNT (BEAKER) (test bgdk=640) 141 K/CU MM 150-450 MEAN PLATELET VOLUME (BEAKER) (test hddq=394) 11.2 fL 9.4-12.3 NUCLEATED RED BLOOD CELLS (BEAKER) (test 0 /100 WBC 0-0 ppii=720) NEUTROPHILS RELATIVE PERCENT (BEAKER) (test 67 % avqw=722) LYMPHOCYTES RELATIVE PERCENT (BEAKER) (test 26 % smkt=030) MONOCYTES RELATIVE PERCENT (BEAKER) (test 5 % dgyg=977) EOSINOPHILS RELATIVE PERCENT (BEAKER) (test 1 % pejq=811) BASOPHILS RELATIVE PERCENT (BEAKER) (test 0 % dvau=428) NEUTROPHILS ABSOLUTE COUNT (BEAKER) (test 3.21 K/ L 1.56-6.13 byvz=564) LYMPHOCYTES ABSOLUTE COUNT (BEAKER) (test 1.24 K/ L 1.18-3.74 nntk=958) MONOCYTES ABSOLUTE COUNT (BEAKER) (test 0.23 K/ L 0.24-0.36 rkjq=196) EOSINOPHILS ABSOLUTE COUNT (BEAKER) (test 0.06 K/ L 0.04-0.36 mseu=241) BASOPHILS ABSOLUTE COUNT (BEAKER) (test 0.02 K/ L 0.01-0.08 sscj=266) IMMATURE GRANULOCYTES-RELATIVE PERCENT (BEAKER) 1 % 0-1 (test esxg=1546) POCT-GLUCOSE [id number] 22:13:00 Test Item Value Reference Range Comments POC-GLUCOSE METER (BEAKER) 194 mg/dL 70-110 TESTED AT [address] (test lccz=9515) [place] [address] POCT-GLUCOSE [id number] 18:14:00 Test Item Value Reference Range Comments POC-GLUCOSE METER (BEAKER) 195 mg/dL 70-110 TESTED AT [address] (test ysfs=9824) [place] [address] POCT-GLUCOSE [id number] 12:20:00 Test Item Value Reference Range Comments POC-GLUCOSE METER (BEAKER) 224 mg/dL 70-110 TESTED AT [address] (test bkqu=5393) [place] [address] [id number] 08:55:00 Test Item Value Reference Range Comments LIPASE (BEAKER) (test ooso=147) 471 U/L 8-78 POCT-GLUCOSE [id number] 08:12:00 Test Item Value Reference Range Comments POC-GLUCOSE METER (BEAKER) 128 mg/dL 70-110 TESTED AT [address] (test hwxz=0107) [place] [address] [id number] 04:12:00 Test Item Value Reference Range Comments T3 TOTAL (BEAKER) (test cynk=264) 41 ng/dL 48-159 T3, [id number] 04:11:00 Test Item Value Reference Range Comments T3 FREE (BEAKER) (test uoot=418) 1.31 pg/mL 1.71-3.71 COMPREHENSIVE METABOLIC [id number] 04:01:00 Test Item Value Reference Range Comments TOTAL PROTEIN (BEAKER) 4.8 gm/dL 6.0-8.3 (test rtbr=784) ALBUMIN (BEAKER) (test 2.8 g/dL 3.5-5.0 pgxs=5776) ALKALINE PHOSPHATASE 33 U/L 40-150 (BEAKER) (test ftam=763) BILIRUBIN TOTAL (BEAKER) 0.4 mg/dL 0.2-1.2 (test oebq=248) SODIUM (BEAKER) (test 143 meq/L 136-145 orbb=426) POTASSIUM (BEAKER) (test 4.0 meq/L 3.5-5.1 hlaw=963) CHLORIDE (BEAKER) (test 110 meq/L 98-107 fxtc=239) CO2 (BEAKER) (test 26 meq/L 22-29 cvzv=956) BLOOD UREA NITROGEN 9 mg/dL 7-21 (BEAKER) (test ofwe=428) CREATININE (BEAKER) (test 0.73 mg/dL 0.57-1.25 eyig=196) GLUCOSE RANDOM (BEAKER) 213 mg/dL 70-105 (test ergu=432) CALCIUM (BEAKER) (test 8.2 mg/dL 8.4-10.2 wyku=633) AST (SGOT) (BEAKER) (test 8 U/L 5-34 enys=962) ALT (SGPT) (BEAKER) (test < U/L 6-55 uaei=623) EGFR (BEAKER) (test 77 mL/min/1.73 sq m ESTIMATED GFR IS NOT aqlg=6500) ACCURATE CREATININE CLEARANCE IN PREDICTING GLOMERULAR FILTRATION RATE. ESTIMATED GFR IS NOT APPLICABLE FOR DIALYSIS PATIENTS. [id number] 03:54:00 Test Item Value Reference Range Comments MAGNESIUM (BEAKER) (test nyye=715) 1.7 mg/dL 1.6-2.6 PROTHROMBIN [id number] 03:53:00 Test Item Value Reference Range Comments PROTIME (BEAKER) (test qtpv=613) 22.4 seconds 11.7-14.7 INR (BEAKER) (test rzsv=087) 2.0 <=5.9 RECOMMENDED COUMADIN/WARFARIN INR THERAPY RANGESSTANDARD DOSE: 2.0 - 3.0 Includes: PROPHYLAXIS forvenous thrombosis, systemic embolization; TREATMENT for venous thrombosis and/or pulmonary embolus.HIGH RISK: Target INR is 2.5-3.5 for patients with mechanical heart valves.CBC W/PLT COUNT & AUTO [id number] 03:46:00 Test Item Value Reference Range Comments WHITE BLOOD CELL COUNT (BEAKER) (test qukm=484) 5.3 K/ L 3.5-10.5 RED BLOOD CELL COUNT (BEAKER) (test xfvs=705) 3.04 M/ L 3.93-5.22 HEMOGLOBIN (BEAKER) (test hnzv=327) 9.7 GM/DL 11.2-15.7 HEMATOCRIT (BEAKER) (test boty=972) 30.6 % 34.1-44.9 MEAN CORPUSCULAR VOLUME (BEAKER) (test yvtv=552) 100.7 fL 79.4-94.8 MEAN CORPUSCULAR HEMOGLOBIN (BEAKER) (test 31.9 pg 25.6-32.2 mhgo=268) MEAN CORPUSCULAR HEMOGLOBIN CONC (BEAKER) (test 31.7 GM/DL 32.2-35.5 aueh=931) RED CELL DISTRIBUTION WIDTH (BEAKER) (test 14.6 % 11.7-14.4 ankg=752) PLATELET COUNT (BEAKER) (test bpak=296) 135 K/CU MM 150-450 MEAN PLATELET VOLUME (BEAKER) (test pyac=272) 11.4 fL 9.4-12.3 NUCLEATED RED BLOOD CELLS (BEAKER) (test 0 /100 WBC 0-0 sakd=912) NEUTROPHILS RELATIVE PERCENT (BEAKER) (test 76 % tszu=653) LYMPHOCYTES RELATIVE PERCENT (BEAKER) (test 19 % phjw=744) MONOCYTES RELATIVE PERCENT (BEAKER) (test 3 % pgbn=465) EOSINOPHILS RELATIVE PERCENT (BEAKER) (test 0 % mpie=332) BASOPHILS RELATIVE PERCENT (BEAKER) (test 0 % kgut=042) NEUTROPHILS ABSOLUTE COUNT (BEAKER) (test 4.02 K/ L 1.56-6.13 avcw=264) LYMPHOCYTES ABSOLUTE COUNT (BEAKER) (test 1.01 K/ L 1.18-3.74 vdtt=165) MONOCYTES ABSOLUTE COUNT (BEAKER) (test 0.15 K/ L 0.24-0.36 rkik=693) EOSINOPHILS ABSOLUTE COUNT (BEAKER) (test 0.01 K/ L 0.04-0.36 emaw=627) BASOPHILS ABSOLUTE COUNT (BEAKER) (test 0.01 K/ L 0.01-0.08 uplu=127) IMMATURE GRANULOCYTES-RELATIVE PERCENT (BEAKER) 1 % 0-1 (test zmgo=7065) POCT-GLUCOSE [id number] 22:34:00 Test Item Value Reference Range Comments POC-GLUCOSE METER (BEAKER) 252 mg/dL 70-110 TESTED AT [facility] [address] [facility] (test svun=1785) [facility] [address] [id number] 19:36:00 Test Item Value Reference Range Comments MAGNESIUM (BEAKER) (test hqli=966) 1.6 mg/dL 1.6-2.6 BASIC METABOLIC [id number] 19:36:00 Test Item Value Reference Range Comments SODIUM (BEAKER) (test 143 meq/L 136-145 nrjw=319) POTASSIUM (BEAKER) (test 4.1 meq/L 3.5-5.1 lmck=065) CHLORIDE (BEAKER) (test 109 meq/L 98-107 gzxf=321) CO2 (BEAKER) (test 24 meq/L 22-29 tugv=103) BLOOD UREA NITROGEN 9 mg/dL 7-21 (BEAKER) (test xnik=665) CREATININE (BEAKER) (test 0.74 mg/dL 0.57-1.25 qjca=776) GLUCOSE RANDOM (BEAKER) 249 mg/dL 70-105 (test vnmc=674) CALCIUM (BEAKER) (test 8.1 mg/dL 8.4-10.2 wazy=455) EGFR (BEAKER) (test 76 mL/min/1.73 sq m ESTIMATED GFR IS NOT qzky=3839) ACCURATE CREATININE CLEARANCE IN PREDICTING GLOMERULAR FILTRATION RATE. ESTIMATED GFR IS NOT APPLICABLE FOR DIALYSIS PATIENTS. URINE [id number] 11:51:00 Test Item Value Reference Range Comments CULTURE (BEAKER) (test yfgo=3348) No growth POCT-GLUCOSE [id number] 11:42:00 Test Item Value Reference Range Comments POC-GLUCOSE METER (BEAKER) 205 mg/dL 70-110 TESTED AT [address] (test mxyc=8843) [facility] [address] POCT-GLUCOSE [id number] 08:08:00 Test Item Value Reference Range Comments POC-GLUCOSE METER (BEAKER) 119 mg/dL 70-110 TESTED AT [address] (test cxnq=6234) [place] [id number] C. DIFFICILE GDH [id number] 07:40:00 Test Item Value Reference Range Comments CDT TOXIN (test Negative Negative rfhp=[id number]) CDT GDH ANTIGEN (test Positive Negative C. difficile present but toxin ngli=[id number]) not detected. Indicates colonization with non-toxigenic strain or level of toxin below detectable levels. No need for enteric isolation. Treatment is rarely needed (only when strong clinical suspicion for Clostridium difficile infection) Testing performed by [employer] Rapid Cassette Assay. For GDH, published sensitivity of the assay is 98.7% compared to cytotoxicity testing. For Toxin AB, published sensitivity is 87.8% and specificity 99.4% compared to cytotoxicity testing.Verification of kit performance was done by the [facility] Microbiology Lab prior to clinical use.POCT-GLUCOSE [id number] 06:37:00 Test Item Value Reference Range Comments POC-GLUCOSE METER (BEAKER) 141 mg/dL 70-110 TESTED AT [address] (test nlch=5617) [facility] [address] COMPREHENSIVE METABOLIC [id number] 04:48:00 Test Item Value Reference Range Comments TOTAL PROTEIN (BEAKER) 4.7 gm/dL 6.0-8.3 (test ysmd=485) ALBUMIN (BEAKER) (test 2.7 g/dL 3.5-5.0 rasj=7615) ALKALINE PHOSPHATASE 33 U/L 40-150 (BEAKER) (test ewor=394) BILIRUBIN TOTAL (BEAKER) 0.4 mg/dL 0.2-1.2 (test ahuj=288) SODIUM (BEAKER) (test 145 meq/L 136-145 ugsm=297) POTASSIUM (BEAKER) (test 3.7 meq/L 3.5-5.1 euif=782) CHLORIDE (BEAKER) (test 110 meq/L 98-107 aijd=295) CO2 (BEAKER) (test 28 meq/L 22-29 mjda=806) BLOOD UREA NITROGEN 11 mg/dL 7-21 (BEAKER) (test rqyp=622) CREATININE (BEAKER) (test 0.74 mg/dL 0.57-1.25 vkko=210) GLUCOSE RANDOM (BEAKER) 137 mg/dL 70-105 (test qqgo=355) CALCIUM (BEAKER) (test 8.2 mg/dL 8.4-10.2 xxsk=612) AST (SGOT) (BEAKER) (test 8 U/L 5-34 rabb=402) ALT (SGPT) (BEAKER) (test < U/L 6-55 xkbe=121) EGFR (BEAKER) (test 76 mL/min/1.73 sq m ESTIMATED GFR IS NOT awqg=2582) ACCURATE CREATININE CLEARANCE IN PREDICTING GLOMERULAR FILTRATION RATE. ESTIMATED GFR IS NOT APPLICABLE FOR DIALYSIS PATIENTS. PROTHROMBIN [id number] 04:40:00 Test Item Value Reference Range Comments PROTIME (BEAKER) (test leru=816) 23.8 seconds 11.7-14.7 INR (BEAKER) (test aekp=244) 2.1 <=5.9 RECOMMENDED COUMADIN/WARFARIN INR THERAPY RANGESSTANDARD DOSE: 2.0 - 3.0 Includes: PROPHYLAXIS forvenous thrombosis, systemic embolization; TREATMENT for venous thrombosis and/or pulmonary embolus.HIGH RISK: Target INR is 2.5-3.5 for patients with mechanical heart valves.While on warfarin.[id number] 04:29:00 Test Item Value Reference Range Comments MAGNESIUM (BEAKER) (test xuhv=980) 2.0 mg/dL 1.6-2.6 CBC W/PLT COUNT & AUTO [id number] 04:11:00 Test Item Value Reference Range Comments WHITE BLOOD CELL COUNT (BEAKER) (test nkax=736) 5.8 K/ L 3.5-10.5 RED BLOOD CELL COUNT (BEAKER) (test ftxc=383) 3.18 M/ L 3.93-5.22 HEMOGLOBIN (BEAKER) (test lcwi=573) 10.0 GM/DL 11.2-15.7 HEMATOCRIT (BEAKER) (test audl=076) 31.8 % 34.1-44.9 MEAN CORPUSCULAR VOLUME (BEAKER) (test cnnm=577) 100.0 fL 79.4-94.8 MEAN CORPUSCULAR HEMOGLOBIN (BEAKER) (test 31.4 pg 25.6-32.2 qive=541) MEAN CORPUSCULAR HEMOGLOBIN CONC (BEAKER) (test 31.4 GM/DL 32.2-35.5 lfnh=982) RED CELL DISTRIBUTION WIDTH (BEAKER) (test 14.9 % 11.7-14.4 sfcw=589) PLATELET COUNT (BEAKER) (test frch=812) 141 K/CU MM 150-450 MEAN PLATELET VOLUME (BEAKER) (test qbgp=684) 11.3 fL 9.4-12.3 NUCLEATED RED BLOOD CELLS (BEAKER) (test 0 /100 WBC 0-0 gezj=867) NEUTROPHILS RELATIVE PERCENT (BEAKER) (test 71 % ayij=620) LYMPHOCYTES RELATIVE PERCENT (BEAKER) (test 23 % ddgd=049) MONOCYTES RELATIVE PERCENT (BEAKER) (test 4 % tatu=737) EOSINOPHILS RELATIVE PERCENT (BEAKER) (test 0 % bsdj=845) BASOPHILS RELATIVE PERCENT (BEAKER) (test 0 % iril=313) NEUTROPHILS ABSOLUTE COUNT (BEAKER) (test 4.14 K/ L 1.56-6.13 ehor=026) LYMPHOCYTES ABSOLUTE COUNT (BEAKER) (test 1.34 K/ L 1.18-3.74 vclc=039) MONOCYTES ABSOLUTE COUNT (BEAKER) (test 0.23 K/ L 0.24-0.36 xmes=575) EOSINOPHILS ABSOLUTE COUNT (BEAKER) (test 0.02 K/ L 0.04-0.36 cehs=199) BASOPHILS ABSOLUTE COUNT (BEAKER) (test 0.02 K/ L 0.01-0.08 vsiq=415) IMMATURE GRANULOCYTES-RELATIVE PERCENT (BEAKER) 1 % 0-1 (test qhph=8089) POCT-GLUCOSE [id number] 22:19:00 Test Item Value Reference Range Comments POC-GLUCOSE METER (BEAKER) 266 mg/dL 70-110 TESTED AT [facility] [address] [facility] (test cfla=7220) [facility] [address] [id number] 17:54:00 Test Item Value Reference Range Comments POTASSIUM (BEAKER) (test yafy=922) 4.2 meq/L 3.5-5.1 [id number] 17:23:00 Test Item Value Reference Range Comments MAGNESIUM (BEAKER) (test qpoa=440) 1.7 mg/dL 1.6-2.6 POCT-GLUCOSE [id number] 12:41:00 Test Item Value Reference Range Comments POC-GLUCOSE METER (BEAKER) 111 mg/dL 70-110 TESTED AT [address] (test zzsy=1983) [place] [id number] 12:40:00 Test Item Value Reference Range Comments POTASSIUM (BEAKER) (test hwrp=114) 3.5 meq/L 3.5-5.1 POCT-GLUCOSE [id number] 10:05:00 Test Item Value Reference Range Comments POC-GLUCOSE METER (BEAKER) 94 mg/dL 70-110 TESTED AT [address] (test ewem=2374) [place] [id number] COMPREHENSIVE METABOLIC [id number] 05:47:00 Test Item Value Reference Range Comments TOTAL PROTEIN (BEAKER) 4.7 gm/dL 6.0-8.3 (test egpk=640) ALBUMIN (BEAKER) (test 2.7 g/dL 3.5-5.0 bdma=8348) ALKALINE PHOSPHATASE 31 U/L 40-150 (BEAKER) (test zqan=916) BILIRUBIN TOTAL (BEAKER) 0.5 mg/dL 0.2-1.2 (test nxis=550) SODIUM (BEAKER) (test 147 meq/L 136-145 lqbf=520) POTASSIUM (BEAKER) (test 2.9 meq/L 3.5-5.1 oscm=220) CHLORIDE (BEAKER) (test 110 meq/L 98-107 ccvn=502) CO2 (BEAKER) (test 27 meq/L 22-29 puln=933) BLOOD UREA NITROGEN 10 mg/dL 7-21 (BEAKER) (test mnxy=720) CREATININE (BEAKER) (test 0.70 mg/dL 0.57-1.25 upvp=347) GLUCOSE RANDOM (BEAKER) 86 mg/dL 70-105 (test amqc=282) CALCIUM (BEAKER) (test 7.9 mg/dL 8.4-10.2 rvbh=687) AST (SGOT) (BEAKER) (test 9 U/L 5-34 frie=957) ALT (SGPT) (BEAKER) (test < U/L 6-55 guwp=242) EGFR (BEAKER) (test 81 mL/min/1.73 sq m ESTIMATED GFR IS NOT hjtg=6040) ACCURATE CREATININE CLEARANCE IN PREDICTING GLOMERULAR FILTRATION RATE. ESTIMATED GFR IS NOT APPLICABLE FOR DIALYSIS PATIENTS. [id number] 05:44:00 Test Item Value Reference Range Comments MAGNESIUM (BEAKER) (test ypij=012) 2.0 mg/dL 1.6-2.6 PROTHROMBIN [id number] 05:37:00 Test Item Value Reference Range Comments PROTIME (BEAKER) (test rscu=067) 24.0 seconds 11.7-14.7 INR (BEAKER) (test sbxg=708) 2.2 <=5.9 RECOMMENDED COUMADIN/WARFARIN INR THERAPY RANGESSTANDARD DOSE: 2.0 - 3.0 Includes: PROPHYLAXIS forvenous thrombosis, systemic embolization; TREATMENT for venous thrombosis and/or pulmonary embolus.HIGH RISK: Target INR is 2.5-3.5 for patients with mechanical heart valves.PROTHROMBIN [id number] 05:36: 00 Test Item Value Reference Range Comments PROTIME (BEAKER) (test dzel=321) 24.2 seconds 11.7-14.7 INR (BEAKER) (test uway=365) 2.2 <=5.9 RECOMMENDED COUMADIN/WARFARIN INR THERAPY RANGESSTANDARD DOSE: 2.0 - 3.0 Includes: PROPHYLAXIS forvenous thrombosis, systemic embolization; TREATMENT for venous thrombosis and/or pulmonary embolus.HIGH RISK: Target INR is 2.5-3.5 for patients with mechanical heart valves.While on warfarin.CBC W/PLT COUNT &amp ; AUTO [id number] 05:35:00 Test Item Value Reference Range Comments WHITE BLOOD CELL COUNT (BEAKER) (test pagd=602) 4.3 K/ L 3.5-10.5 RED BLOOD CELL COUNT (BEAKER) (test wivv=823) 3.29 M/ L 3.93-5.22 HEMOGLOBIN (BEAKER) (test yole=906) 10.3 GM/DL 11.2-15.7 HEMATOCRIT (BEAKER) (test htyq=692) 33.2 % 34.1-44.9 MEAN CORPUSCULAR VOLUME (BEAKER) (test fxml=179) 100.9 fL 79.4-94.8 MEAN CORPUSCULAR HEMOGLOBIN (BEAKER) (test 31.3 pg 25.6-32.2 wgxf=676) MEAN CORPUSCULAR HEMOGLOBIN CONC (BEAKER) (test 31.0 GM/DL 32.2-35.5 aosg=708) RED CELL DISTRIBUTION WIDTH (BEAKER) (test 14.9 % 11.7-14.4 nypj=605) PLATELET COUNT (BEAKER) (test bhae=078) 138 K/CU MM 150-450 MEAN PLATELET VOLUME (BEAKER) (test mgli=697) 11.5 fL 9.4-12.3 NUCLEATED RED BLOOD CELLS (BEAKER) (test 0 /100 WBC 0-0 finr=644) NEUTROPHILS RELATIVE PERCENT (BEAKER) (test 66 % hivf=419) LYMPHOCYTES RELATIVE PERCENT (BEAKER) (test 27 % trsn=308) MONOCYTES RELATIVE PERCENT (BEAKER) (test 4 % phep=483) EOSINOPHILS RELATIVE PERCENT (BEAKER) (test 1 % chyh=795) BASOPHILS RELATIVE PERCENT (BEAKER) (test 0 % sxqq=140) NEUTROPHILS ABSOLUTE COUNT (BEAKER) (test 2.82 K/ L 1.56-6.13 yslj=997) LYMPHOCYTES ABSOLUTE COUNT (BEAKER) (test 1.16 K/ L 1.18-3.74 qyws=514) MONOCYTES ABSOLUTE COUNT (BEAKER) (test 0.18 K/ L 0.24-0.36 crzi=964) EOSINOPHILS ABSOLUTE COUNT (BEAKER) (test 0.06 K/ L 0.04-0.36 dajn=069) BASOPHILS ABSOLUTE COUNT (BEAKER) (test 0.01 K/ L 0.01-0.08 jjpx=663) IMMATURE GRANULOCYTES-RELATIVE PERCENT (BEAKER) 1 % 0-1 (test tncf=9983) POCT-GLUCOSE [id number] 23:56:00 Test Item Value Reference Range Comments POC-GLUCOSE METER (BEAKER) 105 mg/dL 70-110 TESTED AT [facility] [address] (test ioqk=3608) [facility] [address] TROPONIN [id number] 13:02:00 Test Item Value Reference Range Comments TROPONIN I (BEAKER) (test lfhp=797) 0.02 ng/mL 0.00-0.03 Troponin I (TnI) levels [...] NATRIURETIC PEPTIDE (BEAKER) (test 975 pg/mL 0-100 anzn=551) POCT-GLUCOSE [id number] 12:18:00 Test Item Value Reference Range Comments POC-GLUCOSE METER (BEAKER) 175 mg/dL 70-110 TESTED AT [facility] [address] [facility] (test lvjj=7661) [facility] [address] U/S, ABDOMINAL, [id number] 10:23:00Abdomen limited area? Add comment if clarification [...] MDReport Verified Date/Time: 01/14/2018 10:23:02 Reading Location: [address] Ortho Consult Reading Room T4, [id number] 08:42 :00 Test Item Value Reference Range Comments FREE T4 (BEAKER) (test qckh=072) 0.83 ng/dL 0.70-1.48 POCT-GLUCOSE [id number] 08:37:00 Test Item Value Reference Range Comments POC-GLUCOSE METER (BEAKER) 161 mg/dL 70-110 TESTED AT [facility] [address] [facility] (test jhea=8518) [facility] [address] TSH/FREE T4 IF [id number] 08:05:00 Test Item Value Reference Range Comments THYROID STIMULATING HORMONE (BEAKER) (test 0.02 uIU/mL 0.35-4.94 mipd=187) VITAMIN B12 AND [id number] 07:42:00 Test Item Value Reference Range Comments VITAMIN B12 (BEAKER) (test tach=297) 1276 pg/mL 213-816 FOLATE (BEAKER) (test ohnx=678) 8.8 ng/mL >=7.0 LIPID [id number] 07:14:00 Test Item Value Reference Range Comments TRIGLYCERIDES (BEAKER) (test khfg=672) 171 mg/dL CHOLESTEROL (BEAKER) (test pjvu=563) 123 mg/dL HDL CHOLESTEROL (BEAKER) (test qybk=431) 25 mg/dL LDL CHOLESTEROL CALCULATED (BEAKER) (test 64 mg/dL hvwc=841) Triglyceride Reference Range: Low Risk <150 Borderline 150- 199 High Risk 200-499 Very High Risk >=500Cholesterol Reference Range: Low Risk <200 Borderline 200-239 High Risk > 240HDL Cholesterol Reference Range: Low Risk >=60 High Risk <40LDL Cholesterol Reference Range: Optimal <100 Near Optimal 100-129 Borderline 130-159 High 160-189 Very High >=190TROPONIN [id number] 07:12:00 Test Item Value Reference Range Comments TROPONIN I (BEAKER) (test digl=620) 0.03 ng/mL 0.00-0.03 Troponin I (TnI) levels [...] acute neurological disease, and persistent tachyarrhythmia.URINALYSIS W/ [id number] 06: 35:00 Test Item Value Reference Range Comments COLOR (BEAKER) (test sydy=100) Yellow CLARITY (BEAKER) (test abii=314) Clear SPECIFIC GRAVITY UA (BEAKER) (test ehwf=299) 1.043 1.001-1.035 PH UA (BEAKER) (test ycwf=269) 6.5 5.0-8.0 PROTEIN UA (BEAKER) (test rfkt=449) 20 mg/dL Negative GLUCOSE UA (BEAKER) (test irtb=693) 1000 mg/dL Negative KETONES UA (BEAKER) (test zway=878) Negative Negative BILIRUBIN UA (BEAKER) (test zfim=015) Negative Negative BLOOD UA (BEAKER) (test mxuo=537) Trace Negative NITRITE UA (BEAKER) (test obcf=221) Negative Negative LEUKOCYTE ESTERASE UA (BEAKER) (test rnlx=433) Negative Negative UROBILINOGEN UA (BEAKER) (test wnoq=256) 0.2 mg/dL 0.2-1.0 RBC UA (BEAKER) (test kwgj=533) 1 /HPF WBC UA (BEAKER) (test neqr=570) 3 /HPF BACTERIA (BEAKER) (test tfhl=229) Rare SOURCE(BEAKER) (test szyv=0801) Urine, Taylor [id number] 06:07:00 Test Item Value Reference Range Comments MAGNESIUM (BEAKER) (test rjda=347) 1.8 mg/dL 1.6-2.6 [id number] 05:32:00 Test Item Value Reference Range Comments MAGNESIUM (BEAKER) (test dugw=841) 2.5 mg/dL 1.6-2.6 COMPREHENSIVE METABOLIC [id number] 05:32:00 Test Item Value Reference Range Comments TOTAL PROTEIN (BEAKER) 5.1 gm/dL 6.0-8.3 (test dqex=436) ALBUMIN (BEAKER) (test 2.9 g/dL 3.5-5.0 yqsk=2139) ALKALINE PHOSPHATASE 31 U/L 40-150 (BEAKER) (test czta=575) BILIRUBIN TOTAL (BEAKER) 0.4 mg/dL 0.2-1.2 (test nwkn=530) SODIUM (BEAKER) (test 145 meq/L 136-145 bwsd=874) POTASSIUM (BEAKER) (test 4.0 meq/L 3.5-5.1 hhfq=878) CHLORIDE (BEAKER) (test 110 meq/L 98-107 tzjj=397) CO2 (BEAKER) (test 28 meq/L 22-29 xdam=860) BLOOD UREA NITROGEN 14 mg/dL 7-21 (BEAKER) (test qmnh=620) CREATININE (BEAKER) (test 0.71 mg/dL 0.57-1.25 hxia=566) GLUCOSE RANDOM (BEAKER) 187 mg/dL 70-105 (test yzxc=637) CALCIUM (BEAKER) (test 8.1 mg/dL 8.4-10.2 rncu=758) AST (SGOT) (BEAKER) (test 9 U/L 5-34 ihah=884) ALT (SGPT) (BEAKER) (test 6 U/L 6-55 rxue=548) EGFR (BEAKER) (test 79 mL/min/1.73 sq m ESTIMATED GFR IS NOT xoto=6168) ACCURATE CREATININE CLEARANCE IN PREDICTING GLOMERULAR FILTRATION RATE. ESTIMATED GFR IS NOT APPLICABLE FOR DIALYSIS PATIENTS. PROTHROMBIN TIME/[id number] 05:10:00 Test Item Value Reference Range Comments PROTIME (BEAKER) (test enuu=911) 25.1 seconds 11.7-14.7 INR (BEAKER) (test lich=224) 2.3 <=5.9 RECOMMENDED COUMADIN/WARFARIN INR THERAPY RANGESSTANDARD DOSE: 2.0 - 3.0 Includes: PROPHYLAXIS forvenous thrombosis, systemic embolization; TREATMENT for venous thrombosis and/or pulmonary embolus.HIGH RISK: Target INR is 2.5-3.5 for patients with mechanical heart valves.CBC W/PLT COUNT & AUTO [id number] 05:03:00 Test Item Value Reference Range Comments WHITE BLOOD CELL COUNT (BEAKER) (test ivvo=465) 5.6 K/ L 3.5-10.5 RED BLOOD CELL COUNT (BEAKER) (test ppzb=108) 3.19 M/ L 3.93-5.22 HEMOGLOBIN (BEAKER) (test jgom=171) 10.1 GM/DL 11.2-15.7 HEMATOCRIT (BEAKER) (test wizi=092) 31.5 % 34.1-44.9 MEAN CORPUSCULAR VOLUME (BEAKER) (test fudo=378) 98.7 fL 79.4-94.8 MEAN CORPUSCULAR HEMOGLOBIN (BEAKER) (test 31.7 pg 25.6-32.2 jlim=994) MEAN CORPUSCULAR HEMOGLOBIN CONC (BEAKER) (test 32.1 GM/DL 32.2-35.5 owjp=047) RED CELL DISTRIBUTION WIDTH (BEAKER) (test 14.6 % 11.7-14.4 lurl=419) PLATELET COUNT (BEAKER) (test jnes=342) 141 K/CU MM 150-450 MEAN PLATELET VOLUME (BEAKER) (test jupm=055) 11.6 fL 9.4-12.3 NUCLEATED RED BLOOD CELLS (BEAKER) (test 0 /100 WBC 0-0 lsrz=931) NEUTROPHILS RELATIVE PERCENT (BEAKER) (test 71 % cyze=510) LYMPHOCYTES RELATIVE PERCENT (BEAKER) (test 22 % jbnp=985) MONOCYTES RELATIVE PERCENT (BEAKER) (test 5 % oxfu=964) EOSINOPHILS RELATIVE PERCENT (BEAKER) (test 0 % iksc=509) BASOPHILS RELATIVE PERCENT (BEAKER) (test 0 % uxgy=362) NEUTROPHILS ABSOLUTE COUNT (BEAKER) (test 4.00 K/ L 1.56-6.13 xbkn=158) LYMPHOCYTES ABSOLUTE COUNT (BEAKER) (test 1.25 K/ L 1.18-3.74 akgl=398) MONOCYTES ABSOLUTE COUNT (BEAKER) (test 0.26 K/ L 0.24-0.36 dfhr=707) EOSINOPHILS ABSOLUTE COUNT (BEAKER) (test 0.02 K/ L 0.04-0.36 ldrh=825) BASOPHILS ABSOLUTE COUNT (BEAKER) (test 0.01 K/ L 0.01-0.08 tfse=822) IMMATURE GRANULOCYTES-RELATIVE PERCENT (BEAKER) 1 % 0-1 (test npkg=2798) [id number] 02:52:00 Test Item Value Reference Range Comments PROCALCITONIN (BEAKER) (test tcnv=1695) 0.41 ng/mL <0.05 SEPSIS RISK (ng/mL)Low: 0.05-0.50Intermediate: 0.51-2.00High: & gt;=2.01LACTIC ACID, VENOUS, WHOLE [id number] 02:06:00 Test Item Value Reference Range Comments LACTATE BLOOD VENOUS (2) 1.3 mmol/L 0.5-2.2 Specimen slightly hemolyzed (BEAKER) (test rygb=9393) Effective 01/07/2016: Units/Reference Range ChangeNew: 0.5-2.2 mmol/L Previous: 5 -20 mg/dLCOMPREHENSIVE METABOLIC [id number] 02:06:00 Test Item Value Reference Range Comments TOTAL PROTEIN (BEAKER) 5.2 gm/dL 6.0-8.3 (test rxiz=792) ALBUMIN (BEAKER) (test 3.0 g/dL 3.5-5.0 fbsy=2568) ALKALINE PHOSPHATASE 31 U/L 40-150 (BEAKER) (test jcqh=175) BILIRUBIN TOTAL (BEAKER) 0.4 mg/dL 0.2-1.2 (test fdkp=311) SODIUM (BEAKER) (test 143 meq/L 136-145 tmsb=376) POTASSIUM (BEAKER) (test 2.9 meq/L 3.5-5.1 oiaf=714) CHLORIDE (BEAKER) (test 109 meq/L 98-107 wjcl=698) CO2 (BEAKER) (test 27 meq/L 22-29 uksf=860) BLOOD UREA NITROGEN 15 mg/dL 7-21 (BEAKER) (test bdmm=282) CREATININE (BEAKER) (test 0.70 mg/dL 0.57-1.25 qxia=000) GLUCOSE RANDOM (BEAKER) 215 mg/dL 70-105 (test cnta=547) CALCIUM (BEAKER) (test 7.9 mg/dL 8.4-10.2 wkej=041) AST (SGOT) (BEAKER) (test 10 U/L 5-34 vjdu=461) ALT (SGPT) (BEAKER) (test 7 U/L 6-55 kfsm=437) EGFR (BEAKER) (test 81 mL/min/1.73 sq m ESTIMATED GFR IS NOT btjj=4736) ACCURATE CREATININE CLEARANCE IN PREDICTING GLOMERULAR FILTRATION RATE. ESTIMATED GFR IS NOT APPLICABLE FOR DIALYSIS PATIENTS. [id number] 02:04:00 Test Item Value Reference Range Comments LIPASE (BEAKER) (test wutk=302) 730 U/L 8-78 [id number] 02:04:00 Test Item Value Reference Range Comments AMYLASE (BEAKER) (test ieet=076) 226 U/L 25-125 PROTHROMBIN TIME/[id number] 01:45:00 Test Item Value Reference Range Comments PROTIME (BEAKER) (test xroh=904) 23.9 seconds 11.7-14.7 INR (BEAKER) (test twdh=088) 2.1 <=5.9 RECOMMENDED COUMADIN/WARFARIN INR THERAPY RANGESSTANDARD DOSE: 2.0 - 3.0 Includes: PROPHYLAXIS forvenous thrombosis, systemic embolization; TREATMENT for venous thrombosis and/or pulmonary embolus.HIGH RISK: Target INR is 2.5-3.5 for patients with mechanical heart valves.[id number] 01:45:00 Test Item Value Reference Range Comments PARTIAL THROMBOPLASTIN TIME (BEAKER) (test 32.4 seconds 22.5-36.0 mbvr=773) CBC W/PLT COUNT & AUTO [id number] 01:38:00 Test Item Value Reference Range Comments WHITE BLOOD CELL COUNT (BEAKER) (test itif=226) 4.9 K/ L 3.5-10.5 RED BLOOD CELL COUNT (BEAKER) (test phna=893) 3.21 M/ L 3.93-5.22 HEMOGLOBIN (BEAKER) (test rihf=467) 10.2 GM/DL 11.2-15.7 HEMATOCRIT (BEAKER) (test mwqf=368) 31.6 % 34.1-44.9 MEAN CORPUSCULAR VOLUME (BEAKER) (test wkeq=539) 98.4 fL 79.4-94.8 MEAN CORPUSCULAR HEMOGLOBIN (BEAKER) (test 31.8 pg 25.6-32.2 micc=979) MEAN CORPUSCULAR HEMOGLOBIN CONC (BEAKER) (test 32.3 GM/DL 32.2-35.5 limn=361) RED CELL DISTRIBUTION WIDTH (BEAKER) (test 14.4 % 11.7-14.4 ohcl=023) PLATELET COUNT (BEAKER) (test oajr=030) 137 K/CU MM 150-450 MEAN PLATELET VOLUME (BEAKER) (test tmuv=225) 11.9 fL 9.4-12.3 NUCLEATED RED BLOOD CELLS (BEAKER) (test 0 /100 WBC 0-0 ueia=124) NEUTROPHILS RELATIVE PERCENT (BEAKER) (test 76 % veio=284) LYMPHOCYTES RELATIVE PERCENT (BEAKER) (test 19 % erkz=243) MONOCYTES RELATIVE PERCENT (BEAKER) (test 4 % bicv=615) EOSINOPHILS RELATIVE PERCENT (BEAKER) (test 0 % xmsv=508) BASOPHILS RELATIVE PERCENT (BEAKER) (test 0 % lrld=757) NEUTROPHILS ABSOLUTE COUNT (BEAKER) (test 3.73 K/ L 1.56-6.13 fxaa=598) LYMPHOCYTES ABSOLUTE COUNT (BEAKER) (test 0.92 K/ L 1.18-3.74 cfkh=011) MONOCYTES ABSOLUTE COUNT (BEAKER) (test 0.21 K/ L 0.24-0.36 lbhd=577) EOSINOPHILS ABSOLUTE COUNT (BEAKER) (test 0.00 K/ L 0.04-0.36 ketk=429) BASOPHILS ABSOLUTE COUNT (BEAKER) (test 0.01 K/ L 0.01-0.08 wkyg=463) IMMATURE GRANULOCYTES-RELATIVE PERCENT (BEAKER) 1 % 0-1 (test irbe=0121)
--- NOTE | 2018-10-31 02:37 | ER ---
Nurse's Notes [facility] Name: Emelia Payan Age: 78 yrs Sex: Female : 1940 Arrival Date: 10/31/2018 Time: 01:50 Bed 7 Private MD: Diagnosis: Anxiety disorder, unspecified Presentation: 10/31 02:05 Presenting complaint: Patient states: "I just feel like I'm coming to pieces and I just lp1 want to cry"; Patient states feeling stressed about her being sick, her own health, and dealing with son who a couple years ago; Patient's states "We had an appt with Dr. Garcia this afternoon and he referred us to a neurologist and psychiatrist for her anxiety". Transition of care: patient was not received from another setting of care. Onset of symptoms was October 31, 2018 at 01:00. Risk Assessment: Do you want to hurt yourself or someone else? Patient reports no desire to harm self or others. Initial Sepsis Screen: Does the patient meet any 2 criteria? No. Patient's initial sepsis screen is negative. Does the patient have a suspected source of infection? No. Patient's initial sepsis screen is negative. Care prior to arrival: None. 02:05 Method Of Arrival: Wheelchair lp1 02:05 Acuity: EDIS 3 lp1 Historical: - Allergies: 02:18 Cipro; lp1 02:18 Xarelto; lp1 - Home Meds: 02:18 hydrocortisone 10 mg Oral tab 2 tabs twice a day [Active]; Omnitrope 5 mg/1.5 mL (3.3 lp1 mg/mL) subcutaneous crtg once daily [Active]; Vitamin D3 50,000 units Oral tab twice a day [Active]; levothyroxine 112 mcg tab 1 tab once daily [Active]; glipizide 2.5 mg Oral tr24 one tab M, W, F [Active]; liothyronine 5 mcg Oral tab 1 tab once daily [Active]; amlodipine 5 mg tab 1 tab once daily [Active]; warfarin 2.5 mg oral tab 1 tab once daily [Active]; sotalol 160 mg Oral tab 1 tab 2 times per day [Active]; fenofibrate 48 mg Oral 1 tab once daily [Active]; losartan 100 mg Oral tab 1 tab once daily [Active]; lorazepam 0.5 mg Oral tab 2 times per day for Anxiety [Active]; Creon 36,000-114,000- 180,000 unit Oral cpDR 1 cap 3 times per day [Active]; Dexilant 60 mg Oral CpDB 1 cap once daily [Active]; - PMHx: 02:18 adrenal insuficiency; Anxiety; Atrial Fib; CHF; Diabetes - IDDM; DVT; Hyperlipidemia; lp1 Hypertension; Hypothyroidism; Pancreatitis; - PSHx: 02:18 Pituitary gland removal; lumpectomy to R breast; Hysterectomy; lp1 - Immunization history:: Adult Immunizations up to date. - Social history:: Smoking status: Patient/guardian denies using tobacco. - Ebola Screening: : No symptoms or risks identified at this time. Screenin:18 Abuse screen: Denies threats or abuse. Denies injuries from another. Nutritional lp1 screening: No deficits noted. Tuberculosis screening: No symptoms or risk factors identified. 02:47 Fall Risk None identified. ed1 Assessment: 02:47 General: Appears in no apparent distress. Behavior is anxious. Pain: Denies pain. ed1 Neuro: Level of Consciousness is awake, alert, obeys commands, Oriented to person, place, time, situation. Cardiovascular: Denies chest pain, Heart tones S1 S2 present. Respiratory: Airway is patent Respiratory effort is even, unlabored, Respiratory pattern is regular, symmetrical, Breath sounds are clear bilaterally. GI: No signs and/or symptoms were reported involving the gastrointestinal system. : No signs and/or symptoms were reported regarding the genitourinary system. EENT: No signs and/or symptoms were reported regarding the EENT system. Derm: Skin is intact, is healthy with good turgor, Skin is dry, Skin is normal, Skin temperature is warm. Musculoskeletal: Circulation, motion, and sensation intact. Vital Signs: 02:08 BP 172 / 84; Pulse 76; Resp 18; Temp 98.8(O); Pulse Ox 97% on R/A; Weight 74.84 kg; lp1 Height 5 ft. 4 in. (162.56 cm); Pain 0/10; 02:47 BP 158 / 82; Pulse 71; Resp 17; Pulse Ox 98% on R/A; Pain 0/10; ed1 02:08 Body Mass Index 28.32 (74.84 kg, 162.56 cm) lp1 ED Course: 01:50 Patient arrived in ED. ds1 01:57 Chris Wynn MD is Attending Physician. tw4 02:08 Triage completed. lp1 02:08 Arm band placed on right wrist. lp1 02:36 Carline Jenkins, RN is Primary Nurse. ed1 02:47 Patient has correct armband on for positive identification. ed1 02:47 No provider procedures requiring assistance completed. Patient did not have IV access ed1 during this emergency room visit. Administered Medications: 02:46 Drug: Ativan 1 mg Route: PO; ed1 02:47 Follow up: Response: Medication administered at discharge. ed1 02:46 Drug: Zofran 4 mg Route: PO; ed1 02:46 Follow up: Response: Medication administered at discharge. ed1 Outcome: 02:36 Discharge ordered by . tw4 02:47 Discharged to home via wheelchair, with family. ed1 02:47 Condition: good 02:47 Discharge instructions given to patient, Instructed on discharge instructions, follow up and referral plans. Demonstrated understanding of instructions, follow-up care. 02:51 Patient left the ED. ed1 Signatures: Philomena Hwang ds1 Carline Jenkins, RN RN ed1 Salud Sinha RN RN lp1 Chris Wynn MD MD tw4
[2018-10-31] MEDS ORDERED: LORAZEPAM 0.5 MG TABLET ONE (02:54)
[2018-10-31] MEDS ORDERED: ONDANSETRON 4 MG (ODT) TAB ONE (02:54)
[2018-10-31 02:56] VITALS: TEMP 98.8
[2018-10-31 02:58] VITALS: BP 158/82; O2SAT 98
--- NOTE | 2018-11-01 02:51 | EDPHYS ---
Physician Documentation [facility] Name: Emelia Payan Age: 78 yrs Sex: Female : 1940 Arrival Date: 10/31/2018 Time: 01:50 Bed 7 Private MD: ED Physician Chris Wynn HPI: 10/31 02:57 This 78 yrs old Female presents to ER via Wheelchair with complaints of tw4 Anxiety. 02:57 The patient presents to the emergency department with anxiety, health issues, family tw4 health issues. Onset: The symptoms/episode began/occurred today. Past psychiatric history: Prior diagnosis: no previous psychiatric diagnosis known. Associated signs and symptoms: The patient has no apparent associated signs or symptoms. Severity of symptoms: At their worst the symptoms were mild in the emergency department the symptoms are unchanged. The patient has not experienced similar symptoms in the past. Historical: - Allergies: 02:18 Cipro; lp1 02:18 Xarelto; lp1 - Home Meds: 02:18 hydrocortisone 10 mg Oral tab 2 tabs twice a day [Active]; Omnitrope 5 mg/1.5 mL (3.3 lp1 mg/mL) subcutaneous crtg once daily [Active]; Vitamin D3 50,000 units Oral tab twice a day [Active]; levothyroxine 112 mcg tab 1 tab once daily [Active]; glipizide 2.5 mg Oral tr24 one tab M, W, F [Active]; liothyronine 5 mcg Oral tab 1 tab once daily [Active]; amlodipine 5 mg tab 1 tab once daily [Active]; warfarin 2.5 mg oral tab 1 tab once daily [Active]; sotalol 160 mg Oral tab 1 tab 2 times per day [Active]; fenofibrate 48 mg Oral 1 tab once daily [Active]; losartan 100 mg Oral tab 1 tab once daily [Active]; lorazepam 0.5 mg Oral tab 2 times per day for Anxiety [Active]; Creon 36,000-114,000- 180,000 unit Oral cpDR 1 cap 3 times per day [Active]; Dexilant 60 mg Oral CpDB 1 cap once daily [Active]; - PMHx: 02:18 adrenal insuficiency; Anxiety; Atrial Fib; CHF; Diabetes - IDDM; DVT; Hyperlipidemia; lp1 Hypertension; Hypothyroidism; Pancreatitis; - PSHx: 02:18 Pituitary gland removal; lumpectomy to R breast; Hysterectomy; lp1 - Immunization history:: Adult Immunizations up to date. - Social history:: Smoking status: Patient/guardian denies using tobacco. - Ebola Screening: : No symptoms or risks identified at this time. ROS: 02:57 Constitutional: Negative for fever, chills, and weight loss, Eyes: Negative for injury, tw4 pain, redness, and discharge, Cardiovascular: Negative for chest pain, palpitations, and edema, Respiratory: Negative for shortness of breath, cough, wheezing, and pleuritic chest pain, Abdomen/GI: Negative for abdominal pain, nausea, vomiting, diarrhea, and constipation, Back: Negative for injury and pain, MS/Extremity: Negative for injury and deformity, Skin: Negative for injury, rash, and discoloration. 02:57 Psych: Positive for anxiety, Negative for depression, drug dependence, alcohol dependence, auditory hallucinations, visual hallucinations, homicidal ideation, insomnia, suicide gesture. Exam: 02:57 Constitutional: This is a well developed, well nourished patient who is awake, alert, tw4 and in no acute distress. Head/Face: Normocephalic, atraumatic. Chest/axilla: Normal chest wall appearance and motion. Nontender with no deformity. No lesions are appreciated. Cardiovascular: Regular rate and rhythm with a normal S1 and S2. No gallops, murmurs, or rubs. Normal PMI, no JVD. No pulse deficits. Respiratory: Lungs have equal breath sounds bilaterally, clear to auscultation and percussion. No rales, rhonchi or wheezes noted. No increased work of breathing, no retractions or nasal flaring. Abdomen/GI: Soft, non-tender, with normal bowel sounds. No distension or tympany. No guarding or rebound. No evidence of tenderness throughout. Back: No spinal tenderness. No costovertebral tenderness. Full range of motion. MS/ Extremity: Pulses equal, no cyanosis. Neurovascular intact. Full, normal range of motion. Neuro: Awake and alert, GCS 15, oriented to person, place, time, and situation. Cranial nerves II-XII grossly intact. Motor strength 5/5 in all extremities. Sensory grossly intact. Cerebellar exam normal. Normal gait. Psych: Awake, alert, with orientation to person, place and time. Behavior, mood, and affect are within normal limits. Vital Signs: 02:08 BP 172 / 84; Pulse 76; Resp 18; Temp 98.8(O); Pulse Ox 97% on R/A; Weight 74.84 kg; lp1 Height 5 ft. 4 in. (162.56 cm); Pain 0/10; 02:47 BP 158 / 82; Pulse 71; Resp 17; Pulse Ox 98% on R/A; Pain 0/10; ed1 02:08 Body Mass Index 28.32 (74.84 kg, 162.56 cm) lp1 MDM: 01:57 Patient medically screened. tw4 02:57 Differential diagnosis: depression. Data reviewed: vital signs, nurses notes. Data tw4 interpreted: Pulse oximetry: Interpretation: normal. Counseling: I had a detailed discussion with the patient and/or guardian regarding: the historical points, exam findings, and any diagnostic results supporting the discharge/admit diagnosis. Special discussion: I discussed with the patient/guardian in detail that at this point there is no indication for admission to the hospital. It is understood, however, that if the symptoms persist or worsen the patient needs to return immediately for re-evaluation. Administered Medications: 02:46 Drug: Ativan 1 mg Route: PO; ed1 02:47 Follow up: Response: Medication administered at discharge. ed1 02:46 Drug: Zofran 4 mg Route: PO; ed1 02:46 Follow up: Response: Medication administered at discharge. ed1 Disposition: 10/31/18 02:36 Discharged to Home. Impression: Anxiety disorder, unspecified. - Condition is Stable. - Discharge Instructions: Panic Attacks, Generalized Anxiety Disorder. - Medication Reconciliation Form, Thank You Letter, Antibiotic Education, Prescription Opioid Use form. - Follow up: Private Physician; When: Upon discharge from the Emergency Department; Reason: If symptoms return, Recheck today's complaints, Continuance of care. - Problem is new. - Symptoms have improved. Signatures: Carline Jenkins RN RN ed1 Salud Sinha RN RN lp1 Chris Wynn MD MD tw4 Corrections: (The following items were deleted from the chart) 02:51 02:36 10/31/2018 02:36 Discharged to Home. Impression: Anxiety disorder, unspecified. ed1 Condition is Stable. Forms are Medication Reconciliation Form, Thank You Letter, Antibiotic Education, Prescription Opioid Use. Follow up: Private Physician; When: Upon discharge from the Emergency Department; Reason: If symptoms return, Recheck today's complaints, Continuance of care. Problem is new. Symptoms have improved. tw4
== END 2018-10-31 02:51 | disposition home or self-care (01) ==
LOC: ER 01:49
DX: F41.9 Anxiety disorder, unspecified (principal); I10 Essential (primary) hypertension; E11.9 Type 2 diabetes mellitus without complications; I48.91 Unspecified atrial fibrillation; E03.9 Hypothyroidism, unspecified; E78.5 Hyperlipidemia, unspecified; I50.9 Heart failure, unspecified; Z79.4 Long term (current) use of insulin; Z79.01 Long term (current) use of anticoagulants; Z86.718 Personal history of other venous thrombosis and embolism; Z88.8 Allergy status to other drugs, medicaments and biological substances
CPT/HCPCS: 99283

== ENCOUNTER 2018-11-09 10:17 | Emergency (ER) | payer OTHER ==
--- OUTSIDE RECORDS SUMMARY | 2018-11-09 10:21 | XMS REPORT | Clinical Summary ---
:1940 [facility] Address [address] [place] [address] Care Team Providers Name Role Phone Unavailable [...] Marc Fernandez III, MD 03/14/2018 Surgery Gastroenterology [facility] UPPER ENDOSCOPY,BIOPSY [facility] 03/14/2018 Hospital Gastroenterology [facility] Encounter [facility] 03/13/2018 Hospital Pre-Admission Testing [facility] Encounter [facility] Diana, [facility] Preadmit Phone 01/13/2018 Hospital Intensive Care [...] Medicine Samaria Seals Tachycardia MD Natanael after 11/08/2017 Family History Medical History Relation Name Comments [...] CULTURE Routine 01/14/2018 1:26 AM CDT after 11/08/2017 Results REPORT OF PROCEDURE - ENDOSCOPY URL (03/14/2018 12:19 PM CDT) Narrative Performed At POC-Glucose meter (03/14/2018 11:55 AM CDT)Only the most recent of17 resultswithin the time period is included. POC-Glucose Meter 75Comment: TESTED AT 70 - 110 mg/dL [facility] [address] [facility] [place] [address] Specimen Blood Performing Organization Address City/State/Zipcode Phone Number [place] [id number] [place], [place] [phone] CENTER Tissue Exam (03/14/2018 11:15 AM CDT) Case Report Surgical Pathology Report Case: [id number] [facility] Authorizing Provider:Luiz Hayesected: 03/14/2018 1115 [facility] Ordering Location: [facility] Endoscopy Received: 03/14/2018 1351 Services Pathologist: Mara Barboza MD Specimens: A) - Polyp, Duodenum B) - Stomach,Antrum, bx C) - Biopsy, Gastric, gastric body D) - Biopsy, Esophagus, random ADDENDUM THIS ADDENDUM IS ISSUED TO REPORT THE RESULT OF IMMUNOHISTOCHEMICAL STUDY FOR HELICOBACTER PYLORI OM SPECIMEN B: [facility] - NEGATIVE [facility] CPT CODE: 90006 DIAGNOSIS A. DUODENUM, ENDOSCOPIC POLYPECTOMY: [facility] - COMPATIBLE WITH PEPTIC DUODENITIS [facility] - NO FEATURES OF CELIAC DISEASE SEEM [...] MALIGNANCY SEEN Signing Pathologist Direct Phone Line: [phone] CPT Code(s) 56460 X 4; 22796 X 2 [facility] SPECIMEN SOURCE A. Polyp, duodenum. B. Stomach [facility] antrum. C. Biopsy, gastric, [facility] description gastric body. D. Biopsy, esophagus, description random GROSS DESCRIPTION Part A. Received in formalin, labeled "polyp, duodenum", is a 0.5 x 0.4 x 0.2 cm polypoid shaped brown-chavez fragment of soft tissue. The base is inked green, and the polyp is bisected and submitted entirely in one cassette (A1). [facility] Part B. Received in formalin labeled "stomach, [...] is incorporated in the diagnostic report above: [facility] WARTHIN-STARRY X 2 [facility] Specimen Tissue - Polyp, Duodenum Performing Organization Address City/State/Zipcode Phone Number [facility] [address] [place] [address] [phone] CENTER EKG-SCANNED (01/20/2018 3:11 PM CDT) Narrative Performed At RHYTHM STRIP - SCAN (01/20/2018 3:11 PM CDT) Narrative Performed At ECHOCARDIOGRAM REPORT - SCAN (01/19/2018 2:21 PM CDT) Narrative Performed At 2D Echo W/Doppler(CW/PW/Color) (01/18/2018 1:59 PM CDT) Ejection Fraction [facility] Narrative Performed At Transthoracic Echocardiography Report (TTE) [facility] Demographics Patient NameDANA PAYAN Date of Study 01/18/2018 GenderFemale Visit [id number] [place] Number [id number] Number Date of 1940 Referring Physician MORENA James Age 77 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 WBC 4.8 3.5 - 10.5 K/L [facility] RBC 3.28 (L) 3.93 - 5.22 M/L [facility] Hemoglobin 10.4 (L) 11.2 - 15.7 GM/DL [facility] Hematocrit 32.7 (L) 34.1 - 44.9 % [facility] MCV 99.7 (H) 79.4 - 94.8 fL [facility] MCH 31.7 25.6 - 32.2 pg [facility] MCHC 31.8 (L) 32.2 - 35.5 GM/DL [facility] RDW 14.7 (H) 11.7 - 14.4 % [facility] Platelets 141 (L) 150 - 450 K/CU MM [facility] MPV 11.2 9.4 - 12.3 fL [facility] nRBC 0 0 - 0 /100 WBC [facility] % Neutros 67 % [facility] % Lymphs 26 % [facility] % Monos 5 % [facility] % Eos 1 % [facility] % Baso 0 % [facility] # Neutros 3.21 1.56 - 6.13 K/L [facility] # Lymphs 1.24 1.18 - 3.74 K/L [facility] # Monos 0.23 (L) 0.24 - 0.36 K/L [facility] # Eos 0.06 0.04 - 0.36 K/L [facility] # Baso 0.02 0.01 - 0.08 K/L [facility] Immature Granulocytes-Relative 1 0 - 1 % [facility] Specimen Blood - Arm, Left Performing Organization Address City/State/Zipcode Phone Number [facility] [address] [place] [address] CENTER Prothrombin time/INR (01/18/2018 3:49 AM CDT)Only the most recent of7 resultswithin the time period is included. Protime 23.7 (H) 11.7 - 14.7 seconds [facility] INR 2.1 <=5.9 [facility] Specimen Blood - Arm, Left Narrative Performed At [facility] RECOMMENDED COUMADIN/WARFARIN INR THERAPY RANGES STANDARD DOSE: 2.0 - 3.0 Includes: PROPHYLAXIS for venous thrombosis, systemic embolization; TREATMENT for venous thrombosis and/or pulmonary embolus. HIGH RISK: Target INR is 2.5-3.5 for patients with mechanical heart valves. Performing Organization Address City/[facility]/Zipcode Phone Number [facility] [address] [place] [address] [phone] [place] Magnesium (01/18/2018 3:49 AM CDT)Only the most recent of8 resultswithin the time period is included. Magnesium 1.7 1.6 - 2.6 mg/dL [facility] Specimen Blood - Arm, Left Performing Organization Address [facility] Cent[facility] Phone Number [address] [address] [place] Comprehensive metabolic panel (01/18/2018 3:49 AM CDT)Only the most recent of6 resultswithin the time period is included. Protein, Total 5.2 (L) 6.0 - 8.3 gm/dL [facility] Albumin 3.0 (L) 3.5 - 5.0 g/dL [facility] Alkaline Phosphatase 39 (L) 40 - 150 U/L [facility] Total Bilirubin 0.4 0.2 - 1.2 mg/dL [facility] Sodium 145 136 - 145 meq/L [facility] Potassium 3.6 3.5 - 5.1 meq/L [facility] Chloride 109 (H) 98 - 107 meq/L [facility] CO2 28 22 - 29 meq/L [facility] BUN 8 7 - 21 mg/dL [facility] Creatinine 0.70 0.57 - 1.25 mg/dL [facility] Glucose 107 (H) 70 - 105 mg/dL [facility] Calcium 8.4 8.4 - 10.2 mg/dL [facility] AST 9 5 - 34 U/L [facility] ALT <6 (L) 6 - 55 U/L [facility] EGFR 81Comment: ESTIMATED GFR mL/min/1.73 sq m [facility] IS NOT ACCURATE [facility] CREATININE CLEARANCE IN PREDICTING GLOMERULAR FILTRATION RATE. ESTIMATED GFR IS NOT APPLICABLE FOR DIALYSIS PATIENTS. Specimen Blood - Arm, Left Performing Organization Address [facility] Centercode Phone Number [facility] [address] [place] [address] [phone] CENTER ECG 12 lead (01/17/2018 7:28 AM CDT)Only the most recent of2 resultswithin the time period is included. Narrative Performed At Ventricular Rate 62 BPM GE MUSE Atrial Rate 62 BPM P-R Interval 126 ms QRS Duration 72 ms Q-T Interval 392 ms QTC Calculation(Bazett) 397 ms P [place] 43 degrees R [place] 0 degrees T [place] 4 degrees Normal sinus rhythm Normal ECG [...] 392 ms QTC Calculation(Bazett) 397 ms P [place] 43 degrees R [place] 0 degrees T [place] 4 degrees Normal sinus rhythm Normal ECG When compared with ECG of 14-JAN-2018 07:47, Sinus rhythm has replaced Atrial fibrillation Vent. rate has decreased BY 67 BPM Confirmed by Myriam CABELLO BASANT ([id number]) on 01/17/2018 9:57:49 PM Performing Organization Address [facility] Centercoms Phone Number [employer] MUSE T3, free (01/17/2018 3:19 AM CDT) T3, Free 1.31 (L) 1.71 - 3.71 pg/mL [facility] Specimen Blood - Central Venous Line Performing Organization Address City/[facility] Centercode Phone Number [facility] [address] [address] CENTER T3 (01/17/2018 3:19 AM CDT) T3, Total 41 (L) 48 - 159 ng/dL [facility] Specimen Blood - Central Venous Line Performing Organization Address [facility] Centercode Phone Number [address] [address] CENTER Lipase (01/17/2018 3:19 AM CDT)Only the most recent of2 resultswithin the time period is included. Lipase 471 (H) 8 - 78 U/L [facility] Specimen Blood - Central Venous Line Performing Organization Address [facility] Phone Number [address] [address] [place] Basic Metabolic Panel (01/16/2018 4:26 PM CDT) Sodium 143 136 - 145 meq/L [facility] Potassium 4.1 3.5 - 5.1 meq/L [facility] Chloride 109 (H) 98 - 107 meq/L [facility] CO2 24 22 - 29 meq/L [facility] BUN 9 7 - 21 mg/dL [facility] Creatinine 0.74 0.57 - 1.25 mg/dL [facility] Glucose 249 (H) 70 - 105 mg/dL [facility] Calcium 8.1 (L) 8.4 - 10.2 mg/dL [facility] EGFR 76Comment: ESTIMATED GFR IS mL/min/1.73 sq m [facility] NOT ACCURATE CREATININE [facility] CENTER CLEARANCE IN PREDICTING GLOMERULAR FILTRATION RATE. ESTIMATED GFR IS NOT APPLICABLE FOR DIALYSIS PATIENTS. Specimen Blood Performing Organization Address [facility] Centercode Phone Number [address] [address] CENTER Clostridium difficile [facility] Toxin (01/16/2018 4:08 AM CDT) C. Difficle Toxin Negative Negative [facility] C. Difficile [facility] Antigen Positive (A)Comment: C. Negative [facility] difficile present but toxin MEDICAL CENTER not detected. Indicates colonization with non-toxigenic strain or level of toxin below detectable levels. No need for enteric isolation. Treatment is rarely needed (only when strong clinical suspicion for Clostridium difficile infection) Specimen Stool - Stool Narrative Performed At Testing performed by [employer] [facility] Assay.For [facility], published sensitivity of the assay is 98.7% compared to cytotoxicity testing.For Toxin AB, published sensitivity is 87.8% and specificity 99.4% compared to cytotoxicity testing. Verification of kit performance was done by the [facility] Microbiology Lab prior to clinical use. Performing Organization Address City/[facility] Centercode Phone Number [address] [address] [place] Potassium (01/15/2018 5:00 PM CDT)Only the most recent of2 resultswithin the time period is included. Potassium 4.2 3.5 - 5.1 meq/L [facility] Specimen Blood Performing Organization Address [facility] Centercode Phone Number [address] [address] [place] Troponin I (01/14/2018 12:14 PM CDT)Only the most recent of2 resultswithin the time period is included. Troponin I 0.02 0.00 - 0.03 ng/mL [facility] Specimen Blood Narrative Performed At [facility] Troponin I (TnI) levels must be interpreted [...] tachyarrhythmia. Performing Organization Address City/State/Zipcode Phone Number [facility] [address] [place] [address] CENTER B-type Natriuretic Factor (BNP) (01/14/2018 11:08 AM CDT) BNP 975 (H) 0 - 100 pg/mL [facility] Specimen Blood Performing Organization Address [facility]/Zipcode Phone Number [facility] [address] [place] [address] [place] US abdomen limited (01/14/2018 6:45 AM CDT) Narrative Performed At FINAL REPORT [employer] INDICATION: 77-year-old female with abdominal pain and [...] MD Report Verified Date/Time:01/14/2018 10:23:02 Reading Location: [facility] C013X Ortho Consult Reading Room Procedure [...] Report Verified Date/Time: 01/14/2018 10:23:02 Reading Location: [facility] C013X Ortho Consult Reading Room Performing Organization Address City/[facility] Centercode Phone Number [facility] Vitamin B12 and Folate (01/14/2018 6:34 AM CDT) Vitamin B12 1,276 (H) 213 - 816 pg/mL [facility] Folate 8.8 >=7.0 ng/mL [facility] Specimen Blood - Line, Venous Performing Organization Address City/State/Zipcode Phone Number [address] [address] [phone] CENTER TSH/Free T4 If Indicated (01/14/2018 6:34 AM CDT) TSH 0.02 (L) 0.35 - 4.94 uIU/mL [facility] Specimen Blood - Line, Venous Performing Organization Address [facility] Centercoms Phone Number [address] [address] [phone] [place] T4, free (01/14/2018 6:34 AM CDT) Free T4 0.83 0.70 - 1.48 ng/dL [facility] Specimen Blood - Line, Venous Performing Organization Address [facility] Centercom[facility] Phone Number [address] [address] [place] Lipid panel (01/14/2018 6:34 AM CDT) Triglycerides 171 mg/dL [facility] Cholesterol 123 mg/dL [facility] HDL 25 mg/dL [facility] LDL Calculated 64 mg/dL [facility] Specimen Blood - Line, Venous Narrative Performed At [facility] Triglyceride Reference Range: Low Risk <150 [id number] High Risk 200-499 Very High Risk>=500 Cholesterol Reference Range: Low Risk <200 [id number] High Risk>240 HDL Cholesterol Reference Range: Low Risk >=60 High Risk <40 LDL Cholesterol Reference Range: Optimal<100 Near [id number] [id number] Kifi170-170 Very High >=190 Performing Organization Address [facility] Centercom[facility] Phone Number [address] [address] CENTER Blood culture (01/14/2018 1:28 AM CDT)Only the most recent of2 resultswithin the time period is included. Result No growth in 5 days [facility] Specimen Blood - Line, Venous Performing Organization Address [facility] Centercode Phone Number [address] [address] [place] Urinalysis w/Microscopic (01/14/2018 1:28 AM CDT) Color, UA Yellow [facility] Clarity, UA Clear [facility] Specific [place], UA 1.043 (H) 1.001 - 1.035 [facility] pH, UA 6.5 5.0 - 8.0 [facility] Protein, UA 20 mg/dL (A) Negative [facility] Glucose, UA 1000 mg/dL (A) Negative [facility] Ketones, UA Negative Negative [facility] Bilirubin, UA Negative Negative [facility] Blood, UA Trace (A) Negative [facility] Nitrite, UA Negative Negative [facility] Leukocytes, UA Negative Negative [facility] Urobilinogen, UA 0.2 0.2 - 1.0 mg/dL [facility] RBC, UA 1 /HPF [facility] WBC, UA 3 /HPF [facility] Bacteria, UA Rare [facility] Specimen Source Urine, Taylor [facility] Specimen Urine - Urine, Taylor Performing Organization Address City/[facility]/Zipcode Phone Number [address] [address] [place] Urine culture (01/14/2018 1:28 AM CDT) Result No growth [facility] Specimen Urine - Urine, Taylor Performing Organization Address City/[facility]/Zipcode Phone Number [address] [address] [place] Procalcitonin (01/14/2018 1:26 AM CDT) Procalcitonin 0.41 (H) <0.05 ng/mL [facility] Specimen Blood - Central Venous Line Narrative Performed At [facility] SEPSIS RISK (ng/mL) Low:0.05-0.50 Intermediate: 0.51-2.00 High: >=2.01 Performing Organization Address [facility] Center[facility] Phone Number [address] [address] [phone] [place] Lactic acid, venous, whole blood (01/14/2018 1:26 AM CDT) Lactate, Venous 1.3Comment: Specimen 0.5 - 2.2 mmol/L [facility] slightly hemolyzed [facility] Specimen Blood - Central Venous Line Narrative Performed At [facility] Effective 01/07/2016: Units/Reference Range Change New: 0.5-2.2 mmol/LPrevious: 5-20 mg/dL Performing Organization Address [facility] Phone Number [address] [address] [place] aPTT (01/14/2018 1:26 AM CDT) PTT 32.4 22.5 - 36.0 seconds [facility] Specimen Blood - Central Venous Line Performing Organization Address [facility] Center[facility] Phone Number [address] [address] [place] Amylase (01/14/2018 1:26 AM CDT) Amylase 226 (H) 25 - 125 U/L [facility] Specimen Blood - Central Venous Line Performing Organization Address [facility] Phone Number [address] [address] [place] after 11/08/2017 Insurance Payer Benefit Plan / Group Subscriber ID Type Phone Address MEDICARE MEDICARE A B xxxxxxxxxx Medicare AETNA - MGD CARE AETNA INDEMNITY NON CONTR xxxxxxxxxx Comm ([place]) [place] [address] Advance Directives For more information, please contact:[address] [place], [place] [phone] Code Status Date Activated Date Inactivated Comments Full Code 01/14/2018 12:36 AM 01/18/2018 6:55 PM This code status was determined by: Patient
--- OUTSIDE RECORDS SUMMARY | 2018-11-09 10:22 | XMS REPORT ---
:1940 Author Organization [facility] Address [address] [place] [address] Dr. Saunders [address] [place] [id number] Care Team Providers Name Role Phone MACIEJ VILLA Unavailable Unavailable RANCHO SANDOVAL Unavailable Unavailable Problems This patient has no known problems. Allergies, Adverse Reactions, Alerts This patient has no known allergies or adverse reactions. Medications This patient has no known medications. Results Test Description Test Time Test Comments Text Results Atomic Results Result Comments TISSUE EXAM 2018-03-20 13:06:00 Surgical Pathology Report Case: [id number] Authorizing Provider: Maciej Villa Collected: 03/14/2018 1115 [...] OM SPECIMEN B: - NEGATIVE CPT CODE: [id number] electronically signed by Mara Barboza MD on [...] MALIGNANCY SEEN Signing Pathologist Direct Phone Line: [phone] signed by Mara Barboza MD on 03/17/2018 at 10:35 [id number] X 4; [id number] X 2A. Polyp, duodenum. B. Stomach antrum. [...] (BEAKER) (test 75 mg/dL 70-110 TESTED AT [facility] [address] [facility] swqv=9887) [facility] [address] BLOOD [id number] 06:00:00 Test Item Value Reference Range Comments CULTURE (BEAKER) (test pscb=1722) No growth in 5 days BLOOD [id number] 06:00:00 Test Item Value Reference Range Comments CULTURE (BEAKER) (test ijvg=0786) No growth in 5 days POCT-GLUCOSE [id number] 12:32:00 Test Item Value Reference Range Comments POC-GLUCOSE METER (BEAKER) 217 mg/dL 70-110 TESTED AT [facility] [address] [facility] (test mpwc=8256) [facility] [address] POCT-GLUCOSE [id number] 08:36:00 Test Item Value Reference Range Comments POC-GLUCOSE METER (BEAKER) 92 mg/dL 70-110 TESTED AT [place] [id number] [facility] (test ihtq=1977) [facility] [address] COMPREHENSIVE METABOLIC [id number] 04:59:00 Test Item Value Reference Range Comments TOTAL PROTEIN (BEAKER) 5.2 gm/dL 6.0-8.3 (test pfwz=913) ALBUMIN (BEAKER) (test 3.0 g/dL 3.5-5.0 kupw=9650) ALKALINE PHOSPHATASE 39 U/L 40-150 (BEAKER) (test miln=337) BILIRUBIN TOTAL (BEAKER) 0.4 mg/dL 0.2-1.2 (test tzwe=417) SODIUM (BEAKER) (test 145 meq/L 136-145 ipog=930) POTASSIUM (BEAKER) (test 3.6 meq/L 3.5-5.1 zctv=548) CHLORIDE (BEAKER) (test 109 meq/L 98-107 ttho=998) CO2 (BEAKER) (test 28 meq/L 22-29 tbem=604) BLOOD UREA NITROGEN 8 mg/dL 7-21 (BEAKER) (test nekg=712) CREATININE (BEAKER) (test 0.70 mg/dL 0.57-1.25 cqfr=419) GLUCOSE RANDOM (BEAKER) 107 mg/dL 70-105 (test ppct=727) CALCIUM (BEAKER) (test 8.4 mg/dL 8.4-10.2 lbrc=655) AST (SGOT) (BEAKER) (test 9 U/L 5-34 btsx=633) ALT (SGPT) (BEAKER) (test < U/L 6-55 sbrv=468) EGFR (BEAKER) (test 81 mL/min/1.73 sq m ESTIMATED GFR IS NOT asoj=5751) ACCURATE CREATININE CLEARANCE IN PREDICTING GLOMERULAR FILTRATION RATE. ESTIMATED GFR IS NOT APPLICABLE FOR DIALYSIS PATIENTS. [id number] 04:50:00 Test Item Value Reference Range Comments MAGNESIUM (BEAKER) (test yqgv=918) 1.7 mg/dL 1.6-2.6 PROTHROMBIN [id number] 04:35:00 Test Item Value Reference Range Comments PROTIME (BEAKER) (test lvaf=144) 23.7 seconds 11.7-14.7 INR (BEAKER) (test gwsq=103) 2.1 <=5.9 RECOMMENDED COUMADIN/WARFARIN INR THERAPY RANGESSTANDARD DOSE: 2.0 - 3.0 Includes: PROPHYLAXIS forvenous thrombosis, systemic embolization; TREATMENT for venous thrombosis and/or pulmonary embolus.HIGH RISK: Target INR is 2.5-3.5 for patients with mechanical heart valves.CBC W/PLT COUNT & AUTO [id number] 04:24:00 Test Item Value Reference Range Comments WHITE BLOOD CELL COUNT (BEAKER) (test ytcg=071) 4.8 K/ L 3.5-10.5 RED BLOOD CELL COUNT (BEAKER) (test ccpu=099) 3.28 M/ L 3.93-5.22 HEMOGLOBIN (BEAKER) (test wlib=666) 10.4 GM/DL 11.2-15.7 HEMATOCRIT (BEAKER) (test hwet=184) 32.7 % 34.1-44.9 MEAN CORPUSCULAR VOLUME (BEAKER) (test ivsl=307) 99.7 fL 79.4-94.8 MEAN CORPUSCULAR HEMOGLOBIN (BEAKER) (test 31.7 pg 25.6-32.2 lomd=416) MEAN CORPUSCULAR HEMOGLOBIN CONC (BEAKER) (test 31.8 GM/DL 32.2-35.5 lcre=341) RED CELL DISTRIBUTION WIDTH (BEAKER) (test 14.7 % 11.7-14.4 pser=124) PLATELET COUNT (BEAKER) (test nozr=064) 141 K/CU MM 150-450 MEAN PLATELET VOLUME (BEAKER) (test qzzu=947) 11.2 fL 9.4-12.3 NUCLEATED RED BLOOD CELLS (BEAKER) (test 0 /100 WBC 0-0 rgal=923) NEUTROPHILS RELATIVE PERCENT (BEAKER) (test 67 % dzrf=387) LYMPHOCYTES RELATIVE PERCENT (BEAKER) (test 26 % klev=562) MONOCYTES RELATIVE PERCENT (BEAKER) (test 5 % napx=220) EOSINOPHILS RELATIVE PERCENT (BEAKER) (test 1 % hdsz=604) BASOPHILS RELATIVE PERCENT (BEAKER) (test 0 % pfem=199) NEUTROPHILS ABSOLUTE COUNT (BEAKER) (test 3.21 K/ L 1.56-6.13 pzzn=859) LYMPHOCYTES ABSOLUTE COUNT (BEAKER) (test 1.24 K/ L 1.18-3.74 atwp=789) MONOCYTES ABSOLUTE COUNT (BEAKER) (test 0.23 K/ L 0.24-0.36 hdbe=690) EOSINOPHILS ABSOLUTE COUNT (BEAKER) (test 0.06 K/ L 0.04-0.36 ddpz=112) BASOPHILS ABSOLUTE COUNT (BEAKER) (test 0.02 K/ L 0.01-0.08 ypab=128) IMMATURE GRANULOCYTES-RELATIVE PERCENT (BEAKER) 1 % 0-1 (test cszm=3863) POCT-GLUCOSE [id number] 22:13:00 Test Item Value Reference Range Comments POC-GLUCOSE METER (BEAKER) 194 mg/dL 70-110 TESTED AT [address] (test jsrp=5997) [place] [address] POCT-GLUCOSE [id number] 18:14:00 Test Item Value Reference Range Comments POC-GLUCOSE METER (BEAKER) 195 mg/dL 70-110 TESTED AT [address] (test nbgt=1209) [place] [address] POCT-GLUCOSE [id number] 12:20:00 Test Item Value Reference Range Comments POC-GLUCOSE METER (BEAKER) 224 mg/dL 70-110 TESTED AT [address] (test kitk=0466) [place] [address] [id number] 08:55:00 Test Item Value Reference Range Comments LIPASE (BEAKER) (test imxb=978) 471 U/L 8-78 POCT-GLUCOSE [id number] 08:12:00 Test Item Value Reference Range Comments POC-GLUCOSE METER (BEAKER) 128 mg/dL 70-110 TESTED AT [address] (test plxg=3164) [place] [address] [id number] 04:12:00 Test Item Value Reference Range Comments T3 TOTAL (BEAKER) (test hang=058) 41 ng/dL 48-159 T3, [id number] 04:11:00 Test Item Value Reference Range Comments T3 FREE (BEAKER) (test zoqy=531) 1.31 pg/mL 1.71-3.71 COMPREHENSIVE METABOLIC [id number] 04:01:00 Test Item Value Reference Range Comments TOTAL PROTEIN (BEAKER) 4.8 gm/dL 6.0-8.3 (test dkwd=068) ALBUMIN (BEAKER) (test 2.8 g/dL 3.5-5.0 gojz=7462) ALKALINE PHOSPHATASE 33 U/L 40-150 (BEAKER) (test zwbn=401) BILIRUBIN TOTAL (BEAKER) 0.4 mg/dL 0.2-1.2 (test dmak=172) SODIUM (BEAKER) (test 143 meq/L 136-145 dvyx=652) POTASSIUM (BEAKER) (test 4.0 meq/L 3.5-5.1 umda=801) CHLORIDE (BEAKER) (test 110 meq/L 98-107 buen=767) CO2 (BEAKER) (test 26 meq/L 22-29 myso=081) BLOOD UREA NITROGEN 9 mg/dL 7-21 (BEAKER) (test rcux=895) CREATININE (BEAKER) (test 0.73 mg/dL 0.57-1.25 lrua=397) GLUCOSE RANDOM (BEAKER) 213 mg/dL 70-105 (test etpk=465) CALCIUM (BEAKER) (test 8.2 mg/dL 8.4-10.2 ddzh=943) AST (SGOT) (BEAKER) (test 8 U/L 5-34 mhgs=056) ALT (SGPT) (BEAKER) (test < U/L 6-55 myjt=034) EGFR (BEAKER) (test 77 mL/min/1.73 sq m ESTIMATED GFR IS NOT ommc=1798) ACCURATE CREATININE CLEARANCE IN PREDICTING GLOMERULAR FILTRATION RATE. ESTIMATED GFR IS NOT APPLICABLE FOR DIALYSIS PATIENTS. [id number] 03:54:00 Test Item Value Reference Range Comments MAGNESIUM (BEAKER) (test ykqg=630) 1.7 mg/dL 1.6-2.6 PROTHROMBIN [id number] 03:53:00 Test Item Value Reference Range Comments PROTIME (BEAKER) (test nqof=562) 22.4 seconds 11.7-14.7 INR (BEAKER) (test dwkp=072) 2.0 <=5.9 RECOMMENDED COUMADIN/WARFARIN INR THERAPY RANGESSTANDARD DOSE: 2.0 - 3.0 Includes: PROPHYLAXIS forvenous thrombosis, systemic embolization; TREATMENT for venous thrombosis and/or pulmonary embolus.HIGH RISK: Target INR is 2.5-3.5 for patients with mechanical heart valves.CBC W/PLT COUNT & AUTO [id number] 03:46:00 Test Item Value Reference Range Comments WHITE BLOOD CELL COUNT (BEAKER) (test jxrd=328) 5.3 K/ L 3.5-10.5 RED BLOOD CELL COUNT (BEAKER) (test zque=131) 3.04 M/ L 3.93-5.22 HEMOGLOBIN (BEAKER) (test qevu=090) 9.7 GM/DL 11.2-15.7 HEMATOCRIT (BEAKER) (test gjso=057) 30.6 % 34.1-44.9 MEAN CORPUSCULAR VOLUME (BEAKER) (test wowi=605) 100.7 fL 79.4-94.8 MEAN CORPUSCULAR HEMOGLOBIN (BEAKER) (test 31.9 pg 25.6-32.2 aqna=810) MEAN CORPUSCULAR HEMOGLOBIN CONC (BEAKER) (test 31.7 GM/DL 32.2-35.5 vggz=572) RED CELL DISTRIBUTION WIDTH (BEAKER) (test 14.6 % 11.7-14.4 qfhh=998) PLATELET COUNT (BEAKER) (test dxhc=588) 135 K/CU MM 150-450 MEAN PLATELET VOLUME (BEAKER) (test pgwy=502) 11.4 fL 9.4-12.3 NUCLEATED RED BLOOD CELLS (BEAKER) (test 0 /100 WBC 0-0 wxna=893) NEUTROPHILS RELATIVE PERCENT (BEAKER) (test 76 % azrg=330) LYMPHOCYTES RELATIVE PERCENT (BEAKER) (test 19 % tono=040) MONOCYTES RELATIVE PERCENT (BEAKER) (test 3 % lnik=793) EOSINOPHILS RELATIVE PERCENT (BEAKER) (test 0 % qqhn=588) BASOPHILS RELATIVE PERCENT (BEAKER) (test 0 % flhf=202) NEUTROPHILS ABSOLUTE COUNT (BEAKER) (test 4.02 K/ L 1.56-6.13 liwz=347) LYMPHOCYTES ABSOLUTE COUNT (BEAKER) (test 1.01 K/ L 1.18-3.74 rgym=075) MONOCYTES ABSOLUTE COUNT (BEAKER) (test 0.15 K/ L 0.24-0.36 khvl=885) EOSINOPHILS ABSOLUTE COUNT (BEAKER) (test 0.01 K/ L 0.04-0.36 xvev=617) BASOPHILS ABSOLUTE COUNT (BEAKER) (test 0.01 K/ L 0.01-0.08 japq=167) IMMATURE GRANULOCYTES-RELATIVE PERCENT (BEAKER) 1 % 0-1 (test qxqp=2278) POCT-GLUCOSE [id number] 22:34:00 Test Item Value Reference Range Comments POC-GLUCOSE METER (BEAKER) 252 mg/dL 70-110 TESTED AT [facility] [address] [facility] (test pamf=5116) [facility] [address] [id number] 19:36:00 Test Item Value Reference Range Comments MAGNESIUM (BEAKER) (test zcnp=336) 1.6 mg/dL 1.6-2.6 BASIC METABOLIC [id number] 19:36:00 Test Item Value Reference Range Comments SODIUM (BEAKER) (test 143 meq/L 136-145 fufy=301) POTASSIUM (BEAKER) (test 4.1 meq/L 3.5-5.1 gpti=337) CHLORIDE (BEAKER) (test 109 meq/L 98-107 klko=096) CO2 (BEAKER) (test 24 meq/L 22-29 dlhv=952) BLOOD UREA NITROGEN 9 mg/dL 7-21 (BEAKER) (test ystq=705) CREATININE (BEAKER) (test 0.74 mg/dL 0.57-1.25 exwz=745) GLUCOSE RANDOM (BEAKER) 249 mg/dL 70-105 (test cqgw=942) CALCIUM (BEAKER) (test 8.1 mg/dL 8.4-10.2 hbwb=565) EGFR (BEAKER) (test 76 mL/min/1.73 sq m ESTIMATED GFR IS NOT fkwd=2898) ACCURATE CREATININE CLEARANCE IN PREDICTING GLOMERULAR FILTRATION RATE. ESTIMATED GFR IS NOT APPLICABLE FOR DIALYSIS PATIENTS. URINE [id number] 11:51:00 Test Item Value Reference Range Comments CULTURE (BEAKER) (test vdnu=6064) No growth POCT-GLUCOSE [id number] 11:42:00 Test Item Value Reference Range Comments POC-GLUCOSE METER (BEAKER) 205 mg/dL 70-110 TESTED AT [address] (test bycx=1388) [facility] [address] POCT-GLUCOSE [id number] 08:08:00 Test Item Value Reference Range Comments POC-GLUCOSE METER (BEAKER) 119 mg/dL 70-110 TESTED AT [address] (test ikos=9826) [place] [id number] C. DIFFICILE GDH [id number] 07:40:00 Test Item Value Reference Range Comments CDT TOXIN (test Negative Negative ufxe=[id number]) CDT GDH ANTIGEN (test Positive Negative C. difficile present but toxin epvv=[id number]) not detected. Indicates colonization with non-toxigenic strain or level of toxin below detectable levels. No need for enteric isolation. Treatment is rarely needed (only when strong clinical suspicion for Clostridium difficile infection) Testing performed by [email or web address] Rapid Cassette Assay. For GDH, published sensitivity of the assay is 98.7% compared to cytotoxicity testing. For Toxin AB, published sensitivity is 87.8% and specificity 99.4% compared to cytotoxicity testing.Verification of kit performance was done by the [facility] Microbiology Lab prior to clinical use.POCT-GLUCOSE [id number] 06:37:00 Test Item Value Reference Range Comments POC-GLUCOSE METER (BEAKER) 141 mg/dL 70-110 TESTED AT [address] (test qbha=1761) [facility] [address] COMPREHENSIVE METABOLIC [id number] 04:48:00 Test Item Value Reference Range Comments TOTAL PROTEIN (BEAKER) 4.7 gm/dL 6.0-8.3 (test lgqi=741) ALBUMIN (BEAKER) (test 2.7 g/dL 3.5-5.0 ieix=7948) ALKALINE PHOSPHATASE 33 U/L 40-150 (BEAKER) (test bhch=425) BILIRUBIN TOTAL (BEAKER) 0.4 mg/dL 0.2-1.2 (test uyxg=355) SODIUM (BEAKER) (test 145 meq/L 136-145 nptc=423) POTASSIUM (BEAKER) (test 3.7 meq/L 3.5-5.1 orqw=117) CHLORIDE (BEAKER) (test 110 meq/L 98-107 lvos=366) CO2 (BEAKER) (test 28 meq/L 22-29 ngab=668) BLOOD UREA NITROGEN 11 mg/dL 7-21 (BEAKER) (test ujhd=043) CREATININE (BEAKER) (test 0.74 mg/dL 0.57-1.25 gzbc=020) GLUCOSE RANDOM (BEAKER) 137 mg/dL 70-105 (test fdrk=257) CALCIUM (BEAKER) (test 8.2 mg/dL 8.4-10.2 zpde=447) AST (SGOT) (BEAKER) (test 8 U/L 5-34 gois=074) ALT (SGPT) (BEAKER) (test < U/L 6-55 vwmt=135) EGFR (BEAKER) (test 76 mL/min/1.73 sq m ESTIMATED GFR IS NOT mrie=8221) ACCURATE CREATININE CLEARANCE IN PREDICTING GLOMERULAR FILTRATION RATE. ESTIMATED GFR IS NOT APPLICABLE FOR DIALYSIS PATIENTS. PROTHROMBIN [id number] 04:40:00 Test Item Value Reference Range Comments PROTIME (BEAKER) (test hgbd=038) 23.8 seconds 11.7-14.7 INR (BEAKER) (test joxe=400) 2.1 <=5.9 RECOMMENDED COUMADIN/WARFARIN INR THERAPY RANGESSTANDARD DOSE: 2.0 - 3.0 Includes: PROPHYLAXIS forvenous thrombosis, systemic embolization; TREATMENT for venous thrombosis and/or pulmonary embolus.HIGH RISK: Target INR is 2.5-3.5 for patients with mechanical heart valves.While on warfarin.[id number] 04:29:00 Test Item Value Reference Range Comments MAGNESIUM (BEAKER) (test wsnc=689) 2.0 mg/dL 1.6-2.6 CBC W/PLT COUNT & AUTO [id number] 04:11:00 Test Item Value Reference Range Comments WHITE BLOOD CELL COUNT (BEAKER) (test ezux=093) 5.8 K/ L 3.5-10.5 RED BLOOD CELL COUNT (BEAKER) (test oyyy=350) 3.18 M/ L 3.93-5.22 HEMOGLOBIN (BEAKER) (test bdux=601) 10.0 GM/DL 11.2-15.7 HEMATOCRIT (BEAKER) (test iuoo=932) 31.8 % 34.1-44.9 MEAN CORPUSCULAR VOLUME (BEAKER) (test akck=957) 100.0 fL 79.4-94.8 MEAN CORPUSCULAR HEMOGLOBIN (BEAKER) (test 31.4 pg 25.6-32.2 kqyd=956) MEAN CORPUSCULAR HEMOGLOBIN CONC (BEAKER) (test 31.4 GM/DL 32.2-35.5 odwd=858) RED CELL DISTRIBUTION WIDTH (BEAKER) (test 14.9 % 11.7-14.4 lpqh=555) PLATELET COUNT (BEAKER) (test czxl=981) 141 K/CU MM 150-450 MEAN PLATELET VOLUME (BEAKER) (test xqbp=887) 11.3 fL 9.4-12.3 NUCLEATED RED BLOOD CELLS (BEAKER) (test 0 /100 WBC 0-0 dqhs=330) NEUTROPHILS RELATIVE PERCENT (BEAKER) (test 71 % efgs=443) LYMPHOCYTES RELATIVE PERCENT (BEAKER) (test 23 % ctjh=808) MONOCYTES RELATIVE PERCENT (BEAKER) (test 4 % oveq=860) EOSINOPHILS RELATIVE PERCENT (BEAKER) (test 0 % jses=620) BASOPHILS RELATIVE PERCENT (BEAKER) (test 0 % vmln=112) NEUTROPHILS ABSOLUTE COUNT (BEAKER) (test 4.14 K/ L 1.56-6.13 tsee=249) LYMPHOCYTES ABSOLUTE COUNT (BEAKER) (test 1.34 K/ L 1.18-3.74 ymlp=373) MONOCYTES ABSOLUTE COUNT (BEAKER) (test 0.23 K/ L 0.24-0.36 jpza=361) EOSINOPHILS ABSOLUTE COUNT (BEAKER) (test 0.02 K/ L 0.04-0.36 ghwl=293) BASOPHILS ABSOLUTE COUNT (BEAKER) (test 0.02 K/ L 0.01-0.08 dwiw=223) IMMATURE GRANULOCYTES-RELATIVE PERCENT (BEAKER) 1 % 0-1 (test tahv=0055) POCT-GLUCOSE [id number] 22:19:00 Test Item Value Reference Range Comments POC-GLUCOSE METER (BEAKER) 266 mg/dL 70-110 TESTED AT [facility] [address] [facility] (test gnge=5085) [facility] [address] [id number] 17:54:00 Test Item Value Reference Range Comments POTASSIUM (BEAKER) (test gbno=609) 4.2 meq/L 3.5-5.1 [id number] 17:23:00 Test Item Value Reference Range Comments MAGNESIUM (BEAKER) (test nhfw=941) 1.7 mg/dL 1.6-2.6 POCT-GLUCOSE [id number] 12:41:00 Test Item Value Reference Range Comments POC-GLUCOSE METER (BEAKER) 111 mg/dL 70-110 TESTED AT [address] (test sbww=4680) [place] [address] [id number] 12:40:00 Test Item Value Reference Range Comments POTASSIUM (BEAKER) (test tcwk=823) 3.5 meq/L 3.5-5.1 POCT-GLUCOSE [id number] 10:05:00 Test Item Value Reference Range Comments POC-GLUCOSE METER (BEAKER) 94 mg/dL 70-110 TESTED AT [address] (test omds=2688) [place] [address] COMPREHENSIVE METABOLIC [id number] 05:47:00 Test Item Value Reference Range Comments TOTAL PROTEIN (BEAKER) 4.7 gm/dL 6.0-8.3 (test lrlx=074) ALBUMIN (BEAKER) (test 2.7 g/dL 3.5-5.0 kayq=2579) ALKALINE PHOSPHATASE 31 U/L 40-150 (BEAKER) (test whsf=280) BILIRUBIN TOTAL (BEAKER) 0.5 mg/dL 0.2-1.2 (test jaum=333) SODIUM (BEAKER) (test 147 meq/L 136-145 gmki=544) POTASSIUM (BEAKER) (test 2.9 meq/L 3.5-5.1 rany=293) CHLORIDE (BEAKER) (test 110 meq/L 98-107 qyrs=141) CO2 (BEAKER) (test 27 meq/L 22-29 cpna=095) BLOOD UREA NITROGEN 10 mg/dL 7-21 (BEAKER) (test qqrc=152) CREATININE (BEAKER) (test 0.70 mg/dL 0.57-1.25 fvbh=698) GLUCOSE RANDOM (BEAKER) 86 mg/dL 70-105 (test suhr=173) CALCIUM (BEAKER) (test 7.9 mg/dL 8.4-10.2 kede=515) AST (SGOT) (BEAKER) (test 9 U/L 5-34 xlli=623) ALT (SGPT) (BEAKER) (test < U/L 6-55 nsie=959) EGFR (BEAKER) (test 81 mL/min/1.73 sq m ESTIMATED GFR IS NOT jdck=3327) ACCURATE CREATININE CLEARANCE IN PREDICTING GLOMERULAR FILTRATION RATE. ESTIMATED GFR IS NOT APPLICABLE FOR DIALYSIS PATIENTS. [id number] 05:44:00 Test Item Value Reference Range Comments MAGNESIUM (BEAKER) (test wcee=620) 2.0 mg/dL 1.6-2.6 PROTHROMBIN [id number] 05:37:00 Test Item Value Reference Range Comments PROTIME (BEAKER) (test hjjx=386) 24.0 seconds 11.7-14.7 INR (BEAKER) (test iunm=918) 2.2 <=5.9 RECOMMENDED COUMADIN/WARFARIN INR THERAPY RANGESSTANDARD DOSE: 2.0 - 3.0 Includes: PROPHYLAXIS forvenous thrombosis, systemic embolization; TREATMENT for venous thrombosis and/or pulmonary embolus.HIGH RISK: Target INR is 2.5-3.5 for patients with mechanical heart valves.PROTHROMBIN TIME/[id number] 05:36: 00 Test Item Value Reference Range Comments PROTIME (BEAKER) (test upvp=410) 24.2 seconds 11.7-14.7 INR (BEAKER) (test kzkx=154) 2.2 <=5.9 RECOMMENDED COUMADIN/WARFARIN INR THERAPY RANGESSTANDARD DOSE: 2.0 - 3.0 Includes: PROPHYLAXIS forvenous thrombosis, systemic embolization; TREATMENT for venous thrombosis and/or pulmonary embolus.HIGH RISK: Target INR is 2.5-3.5 for patients with mechanical heart valves.While on warfarin.CBC W/PLT COUNT &amp ; AUTO [id number] 05:35:00 Test Item Value Reference Range Comments WHITE BLOOD CELL COUNT (BEAKER) (test xvqa=275) 4.3 K/ L 3.5-10.5 RED BLOOD CELL COUNT (BEAKER) (test rduf=966) 3.29 M/ L 3.93-5.22 HEMOGLOBIN (BEAKER) (test ounf=535) 10.3 GM/DL 11.2-15.7 HEMATOCRIT (BEAKER) (test bkjo=188) 33.2 % 34.1-44.9 MEAN CORPUSCULAR VOLUME (BEAKER) (test zeml=090) 100.9 fL 79.4-94.8 MEAN CORPUSCULAR HEMOGLOBIN (BEAKER) (test 31.3 pg 25.6-32.2 calc=745) MEAN CORPUSCULAR HEMOGLOBIN CONC (BEAKER) (test 31.0 GM/DL 32.2-35.5 uene=287) RED CELL DISTRIBUTION WIDTH (BEAKER) (test 14.9 % 11.7-14.4 enyl=747) PLATELET COUNT (BEAKER) (test ktcg=079) 138 K/CU MM 150-450 MEAN PLATELET VOLUME (BEAKER) (test wcjy=562) 11.5 fL 9.4-12.3 NUCLEATED RED BLOOD CELLS (BEAKER) (test 0 /100 WBC 0-0 todl=097) NEUTROPHILS RELATIVE PERCENT (BEAKER) (test 66 % eqdx=874) LYMPHOCYTES RELATIVE PERCENT (BEAKER) (test 27 % rrke=939) MONOCYTES RELATIVE PERCENT (BEAKER) (test 4 % oeia=532) EOSINOPHILS RELATIVE PERCENT (BEAKER) (test 1 % hwga=954) BASOPHILS RELATIVE PERCENT (BEAKER) (test 0 % cmdb=091) NEUTROPHILS ABSOLUTE COUNT (BEAKER) (test 2.82 K/ L 1.56-6.13 zbbd=365) LYMPHOCYTES ABSOLUTE COUNT (BEAKER) (test 1.16 K/ L 1.18-3.74 nkly=669) MONOCYTES ABSOLUTE COUNT (BEAKER) (test 0.18 K/ L 0.24-0.36 qqzg=749) EOSINOPHILS ABSOLUTE COUNT (BEAKER) (test 0.06 K/ L 0.04-0.36 xuzd=673) BASOPHILS ABSOLUTE COUNT (BEAKER) (test 0.01 K/ L 0.01-0.08 qehv=528) IMMATURE GRANULOCYTES-RELATIVE PERCENT (BEAKER) 1 % 0-1 (test wzah=0105) POCT-GLUCOSE [id number] 23:56:00 Test Item Value Reference Range Comments POC-GLUCOSE METER (BEAKER) 105 mg/dL 70-110 TESTED AT [facility] [address] (test skxa=9228) [facility] [id number] TROPONIN [id number] 13:02:00 Test Item Value Reference Range Comments TROPONIN I (BEAKER) (test kxrm=530) 0.02 ng/mL 0.00-0.03 Troponin I (TnI) levels [...] NATRIURETIC PEPTIDE (BEAKER) (test 975 pg/mL 0-100 yfim=201) POCT-GLUCOSE [id number] 12:18:00 Test Item Value Reference Range Comments POC-GLUCOSE METER (BEAKER) 175 mg/dL 70-110 TESTED AT [facility] [address] [facility] (test tsvv=1622) [facility] [id number] U/S, ABDOMINAL, [id number] 10:23:00Abdomen limited area? Add comment if clarification [...] Verified Date/Time: 01/14/2018 10:23:02 Reading Location: [address] Ortho Consult Reading Room T4, [id number] 08:42 :00 Test Item Value Reference Range Comments FREE T4 (BEAKER) (test zlky=763) 0.83 ng/dL 0.70-1.48 POCT-GLUCOSE [id number] 08:37:00 Test Item Value Reference Range Comments POC-GLUCOSE METER (BEAKER) 161 mg/dL 70-110 TESTED AT [facility] [address] [facility] (test tist=8494) [facility] [address] TSH/FREE T4 IF [id number] 08:05:00 Test Item Value Reference Range Comments THYROID STIMULATING HORMONE (BEAKER) (test 0.02 uIU/mL 0.35-4.94 sjja=068) VITAMIN B12 AND [id number] 07:42:00 Test Item Value Reference Range Comments VITAMIN B12 (BEAKER) (test dceq=106) 1276 pg/mL 213-816 FOLATE (BEAKER) (test vudz=167) 8.8 ng/mL >=7.0 LIPID [id number] 07:14:00 Test Item Value Reference Range Comments TRIGLYCERIDES (BEAKER) (test zrey=098) 171 mg/dL CHOLESTEROL (BEAKER) (test wvmi=301) 123 mg/dL HDL CHOLESTEROL (BEAKER) (test nrdw=484) 25 mg/dL LDL CHOLESTEROL CALCULATED (BEAKER) (test 64 mg/dL hqps=152) Triglyceride Reference Range: Low Risk <150 Borderline 150- 199 High Risk 200-499 Very High Risk >=500Cholesterol Reference Range: Low Risk <200 Borderline 200-239 High Risk > 240HDL Cholesterol Reference Range: Low Risk >=60 High Risk <40LDL Cholesterol Reference Range: Optimal <100 Near Optimal 100-129 Borderline 130-159 High 160-189 Very High >=190TROPONIN [id number] 07:12:00 Test Item Value Reference Range Comments TROPONIN I (BEAKER) (test ycrx=167) 0.03 ng/mL 0.00-0.03 Troponin I (TnI) levels [...] acute neurological disease, and persistent tachyarrhythmia.URINALYSIS W/ [id number] 06: 35:00 Test Item Value Reference Range Comments COLOR (BEAKER) (test wcvi=596) Yellow CLARITY (BEAKER) (test yang=031) Clear SPECIFIC GRAVITY UA (BEAKER) (test ooko=254) 1.043 1.001-1.035 PH UA (BEAKER) (test hcri=905) 6.5 5.0-8.0 PROTEIN UA (BEAKER) (test aloc=054) 20 mg/dL Negative GLUCOSE UA (BEAKER) (test ndsi=810) 1000 mg/dL Negative KETONES UA (BEAKER) (test rftp=368) Negative Negative BILIRUBIN UA (BEAKER) (test vain=931) Negative Negative BLOOD UA (BEAKER) (test oisq=168) Trace Negative NITRITE UA (BEAKER) (test gemc=178) Negative Negative LEUKOCYTE ESTERASE UA (BEAKER) (test xjui=603) Negative Negative UROBILINOGEN UA (BEAKER) (test mvtq=982) 0.2 mg/dL 0.2-1.0 RBC UA (BEAKER) (test rcvv=155) 1 /HPF WBC UA (BEAKER) (test qier=060) 3 /HPF BACTERIA (BEAKER) (test szue=601) Rare SOURCE(BEAKER) (test gkwr=8961) Urine, Taylor [id number] 06:07:00 Test Item Value Reference Range Comments MAGNESIUM (BEAKER) (test nrur=192) 1.8 mg/dL 1.6-2.6 [id number] 05:32:00 Test Item Value Reference Range Comments MAGNESIUM (BEAKER) (test ioop=705) 2.5 mg/dL 1.6-2.6 COMPREHENSIVE METABOLIC [id number] 05:32:00 Test Item Value Reference Range Comments TOTAL PROTEIN (BEAKER) 5.1 gm/dL 6.0-8.3 (test bupj=405) ALBUMIN (BEAKER) (test 2.9 g/dL 3.5-5.0 hjvj=9816) ALKALINE PHOSPHATASE 31 U/L 40-150 (BEAKER) (test vcxj=981) BILIRUBIN TOTAL (BEAKER) 0.4 mg/dL 0.2-1.2 (test nkxb=958) SODIUM (BEAKER) (test 145 meq/L 136-145 hhbm=918) POTASSIUM (BEAKER) (test 4.0 meq/L 3.5-5.1 dvor=645) CHLORIDE (BEAKER) (test 110 meq/L 98-107 irbf=847) CO2 (BEAKER) (test 28 meq/L 22-29 usto=550) BLOOD UREA NITROGEN 14 mg/dL 7-21 (BEAKER) (test yzih=599) CREATININE (BEAKER) (test 0.71 mg/dL 0.57-1.25 owki=201) GLUCOSE RANDOM (BEAKER) 187 mg/dL 70-105 (test dnyh=416) CALCIUM (BEAKER) (test 8.1 mg/dL 8.4-10.2 sgsw=044) AST (SGOT) (BEAKER) (test 9 U/L 5-34 wouo=095) ALT (SGPT) (BEAKER) (test 6 U/L 6-55 dcmp=099) EGFR (BEAKER) (test 79 mL/min/1.73 sq m ESTIMATED GFR IS NOT beat=0835) ACCURATE CREATININE CLEARANCE IN PREDICTING GLOMERULAR FILTRATION RATE. ESTIMATED GFR IS NOT APPLICABLE FOR DIALYSIS PATIENTS. PROTHROMBIN [id number] 05:10:00 Test Item Value Reference Range Comments PROTIME (BEAKER) (test fprz=209) 25.1 seconds 11.7-14.7 INR (BEAKER) (test drxe=262) 2.3 <=5.9 RECOMMENDED COUMADIN/WARFARIN INR THERAPY RANGESSTANDARD DOSE: 2.0 - 3.0 Includes: PROPHYLAXIS forvenous thrombosis, systemic embolization; TREATMENT for venous thrombosis and/or pulmonary embolus.HIGH RISK: Target INR is 2.5-3.5 for patients with mechanical heart valves.CBC W/PLT COUNT & AUTO [id number] 05:03:00 Test Item Value Reference Range Comments WHITE BLOOD CELL COUNT (BEAKER) (test wtav=896) 5.6 K/ L 3.5-10.5 RED BLOOD CELL COUNT (BEAKER) (test emqj=938) 3.19 M/ L 3.93-5.22 HEMOGLOBIN (BEAKER) (test jogo=932) 10.1 GM/DL 11.2-15.7 HEMATOCRIT (BEAKER) (test qiiq=533) 31.5 % 34.1-44.9 MEAN CORPUSCULAR VOLUME (BEAKER) (test ymzk=535) 98.7 fL 79.4-94.8 MEAN CORPUSCULAR HEMOGLOBIN (BEAKER) (test 31.7 pg 25.6-32.2 bwwq=617) MEAN CORPUSCULAR HEMOGLOBIN CONC (BEAKER) (test 32.1 GM/DL 32.2-35.5 puiz=442) RED CELL DISTRIBUTION WIDTH (BEAKER) (test 14.6 % 11.7-14.4 sugy=051) PLATELET COUNT (BEAKER) (test ibvo=865) 141 K/CU MM 150-450 MEAN PLATELET VOLUME (BEAKER) (test vlsw=832) 11.6 fL 9.4-12.3 NUCLEATED RED BLOOD CELLS (BEAKER) (test 0 /100 WBC 0-0 dpte=844) NEUTROPHILS RELATIVE PERCENT (BEAKER) (test 71 % igne=631) LYMPHOCYTES RELATIVE PERCENT (BEAKER) (test 22 % gxwk=055) MONOCYTES RELATIVE PERCENT (BEAKER) (test 5 % kvlf=040) EOSINOPHILS RELATIVE PERCENT (BEAKER) (test 0 % wikz=131) BASOPHILS RELATIVE PERCENT (BEAKER) (test 0 % dcrt=252) NEUTROPHILS ABSOLUTE COUNT (BEAKER) (test 4.00 K/ L 1.56-6.13 cziv=099) LYMPHOCYTES ABSOLUTE COUNT (BEAKER) (test 1.25 K/ L 1.18-3.74 inxm=741) MONOCYTES ABSOLUTE COUNT (BEAKER) (test 0.26 K/ L 0.24-0.36 fnlp=469) EOSINOPHILS ABSOLUTE COUNT (BEAKER) (test 0.02 K/ L 0.04-0.36 ioib=274) BASOPHILS ABSOLUTE COUNT (BEAKER) (test 0.01 K/ L 0.01-0.08 lfpe=530) IMMATURE GRANULOCYTES-RELATIVE PERCENT (BEAKER) 1 % 0-1 (test akbp=4139) [id number] 02:52:00 Test Item Value Reference Range Comments PROCALCITONIN (BEAKER) (test stlx=2821) 0.41 ng/mL <0.05 SEPSIS RISK (ng/mL)Low: 0.05-0.50Intermediate: 0.51-2.00High: & gt;=2.01LACTIC ACID, VENOUS, WHOLE [id number] 02:06:00 Test Item Value Reference Range Comments LACTATE BLOOD VENOUS (2) 1.3 mmol/L 0.5-2.2 Specimen slightly hemolyzed (BEAKER) (test snkq=8924) Effective 01/07/2016: Units/Reference Range ChangeNew: 0.5-2.2 mmol/L Previous: 5 -20 mg/dLCOMPREHENSIVE METABOLIC [id number] 02:06:00 Test Item Value Reference Range Comments TOTAL PROTEIN (BEAKER) 5.2 gm/dL 6.0-8.3 (test acuz=945) ALBUMIN (BEAKER) (test 3.0 g/dL 3.5-5.0 qsyh=7013) ALKALINE PHOSPHATASE 31 U/L 40-150 (BEAKER) (test cebh=009) BILIRUBIN TOTAL (BEAKER) 0.4 mg/dL 0.2-1.2 (test uagq=055) SODIUM (BEAKER) (test 143 meq/L 136-145 mujo=176) POTASSIUM (BEAKER) (test 2.9 meq/L 3.5-5.1 mdjx=695) CHLORIDE (BEAKER) (test 109 meq/L 98-107 tbwi=118) CO2 (BEAKER) (test 27 meq/L 22-29 amck=534) BLOOD UREA NITROGEN 15 mg/dL 7-21 (BEAKER) (test hsgq=701) CREATININE (BEAKER) (test 0.70 mg/dL 0.57-1.25 koeg=224) GLUCOSE RANDOM (BEAKER) 215 mg/dL 70-105 (test tymz=660) CALCIUM (BEAKER) (test 7.9 mg/dL 8.4-10.2 muwt=534) AST (SGOT) (BEAKER) (test 10 U/L 5-34 wfko=552) ALT (SGPT) (BEAKER) (test 7 U/L 6-55 dlhi=518) EGFR (BEAKER) (test 81 mL/min/1.73 sq m ESTIMATED GFR IS NOT viln=1695) ACCURATE CREATININE CLEARANCE IN PREDICTING GLOMERULAR FILTRATION RATE. ESTIMATED GFR IS NOT APPLICABLE FOR DIALYSIS PATIENTS. [id number] 02:04:00 Test Item Value Reference Range Comments LIPASE (BEAKER) (test fvhm=267) 730 U/L 8-78 [id number] 02:04:00 Test Item Value Reference Range Comments AMYLASE (BEAKER) (test whoj=725) 226 U/L 25-125 PROTHROMBIN TIME/[id number] 01:45:00 Test Item Value Reference Range Comments PROTIME (BEAKER) (test fmja=752) 23.9 seconds 11.7-14.7 INR (BEAKER) (test hmis=321) 2.1 <=5.9 RECOMMENDED COUMADIN/WARFARIN INR THERAPY RANGESSTANDARD DOSE: 2.0 - 3.0 Includes: PROPHYLAXIS forvenous thrombosis, systemic embolization; TREATMENT for venous thrombosis and/or pulmonary embolus.HIGH RISK: Target INR is 2.5-3.5 for patients with mechanical heart valves.[id number] 01:45:00 Test Item Value Reference Range Comments PARTIAL THROMBOPLASTIN TIME (BEAKER) (test 32.4 seconds 22.5-36.0 bppb=363) CBC W/PLT COUNT & AUTO [id number] 01:38:00 Test Item Value Reference Range Comments WHITE BLOOD CELL COUNT (BEAKER) (test pprj=013) 4.9 K/ L 3.5-10.5 RED BLOOD CELL COUNT (BEAKER) (test uyuq=292) 3.21 M/ L 3.93-5.22 HEMOGLOBIN (BEAKER) (test qdaj=326) 10.2 GM/DL 11.2-15.7 HEMATOCRIT (BEAKER) (test rwnx=632) 31.6 % 34.1-44.9 MEAN CORPUSCULAR VOLUME (BEAKER) (test clrx=495) 98.4 fL 79.4-94.8 MEAN CORPUSCULAR HEMOGLOBIN (BEAKER) (test 31.8 pg 25.6-32.2 zaal=022) MEAN CORPUSCULAR HEMOGLOBIN CONC (BEAKER) (test 32.3 GM/DL 32.2-35.5 nvtm=474) RED CELL DISTRIBUTION WIDTH (BEAKER) (test 14.4 % 11.7-14.4 ndjd=708) PLATELET COUNT (BEAKER) (test fhla=159) 137 K/CU MM 150-450 MEAN PLATELET VOLUME (BEAKER) (test kksk=889) 11.9 fL 9.4-12.3 NUCLEATED RED BLOOD CELLS (BEAKER) (test 0 /100 WBC 0-0 qfao=017) NEUTROPHILS RELATIVE PERCENT (BEAKER) (test 76 % nhie=580) LYMPHOCYTES RELATIVE PERCENT (BEAKER) (test 19 % zqjf=119) MONOCYTES RELATIVE PERCENT (BEAKER) (test 4 % xctz=675) EOSINOPHILS RELATIVE PERCENT (BEAKER) (test 0 % ygot=665) BASOPHILS RELATIVE PERCENT (BEAKER) (test 0 % hdaf=511) NEUTROPHILS ABSOLUTE COUNT (BEAKER) (test 3.73 K/ L 1.56-6.13 tfmr=520) LYMPHOCYTES ABSOLUTE COUNT (BEAKER) (test 0.92 K/ L 1.18-3.74 yeuc=610) MONOCYTES ABSOLUTE COUNT (BEAKER) (test 0.21 K/ L 0.24-0.36 yejc=916) EOSINOPHILS ABSOLUTE COUNT (BEAKER) (test 0.00 K/ L 0.04-0.36 bzyt=719) BASOPHILS ABSOLUTE COUNT (BEAKER) (test 0.01 K/ L 0.01-0.08 zopq=580) IMMATURE GRANULOCYTES-RELATIVE PERCENT (BEAKER) 1 % 0-1 (test lnrm=6441)
--- NOTE | 2018-11-09 10:42 | ER ---
Nurse's Notes [facility] Name: Emelia Payan Age: 78 yrs Sex: Female : 1940 Arrival Date: 11/09/2018 Time: 10:19 Bed Waiting Private MD: Dany Iraheta Diagnosis: Presentation: 11/09 10:35 Note Pt and spouse argued immediately after registration complete, left facility. ED Course: 10:19 Patient arrived in ED. rg4 10:19 Dany Iraheta DO is Private Physician. rg4 Administered Medications: No medications were administered Outcome: 10:42 Patient left the ED. Signatures: Leslie Kellogg RN RN Eden Schrader rg4
== END 2018-11-09 10:42 | disposition left against medical advice (07) ==
LOC: ER 10:17
DX: Z53.21 Procedure and treatment not carried out due to patient leaving prior to being seen by health care provider (principal)

== ENCOUNTER 2019-04-25 03:13 | Observation (INO) | payer OTHER ==
--- OUTSIDE RECORDS SUMMARY | 2019-04-25 03:16 | XMS REPORT | Clinical Summary ---
:1940 Author Organization [facility] Address [address] [place] [address] Care Team Providers Name Role Phone Dany Iraheta MD Primary Care Provider Allergies Active Allergy Reactions Severity Noted Date Comments Ciprofloxacin Itching 01/14/2018 Rivaroxaban Other (See Comments) 01/14/2018 Internal bleeding Medications Medication Sig Dispensed Refills Start Date End Date Status warfarin (COUMADIN) 2.5 Take 2.5 mg by 0 12/28/2017 Active MG tablet mouth daily . liothyronine (CYTOMEL) Take 5 mcg by 0 11/23/2017 Active 5 MCG tablet mouth daily . gabapentin (NEURONTIN) Take 600 mg by 0 12/19/2017 Active 600 MG tablet mouth 3 (three) times daily . levothyroxine Take 125 mcg 0 Active (SYNTHROID, LEVOTHROID) by mouth Every 125 MCG morning on an tabletIndications: empty stomach. hypothyroidism glipiZIDE (GLUCOTROL Take 2 tablets 30 tablet 6 01/18/2018 Active XL) 2.5 MG 24 hr tablet (5 mg total) by mouth daily. cholecalciferol, Take 50,000 0 Active vitamin D3, 50,000 unit Units by mouth Tab once every 2 weeks. hydrocortisone (CORTEF) Take 10 mg by 0 Active 20 MG tablet mouth 2 (two) times daily . fenofibrate (TRICOR) 48 Take 48 mg by 0 Active MG tablet mouth daily. omeprazole (PRILOSEC) Take 40 mg by 0 Active 40 MG capsule mouth daily. potassium chloride Take 10 mEq by 0 Active (KLOR-CON) 10 MEQ CR mouth daily. tablet LORazepam (ATIVAN) 0.5 Take 0.5 mg by 0 Active MG tablet mouth as needed for Anxiety. somatropin 5 mg/1.5 mL Inject 0 Active (3.3 mg/mL) PnIj subcutaneously . amLODIPine (NORVASC) 5 Take 5 mg by 0 Active MG tablet mouth daily. losartan (COZAAR) 100 Take 100 mg by 0 Active MG tablet mouth daily. methscopolamine (PAMINE Take 5 mg by 0 Active FORTE) 5 MG tablet mouth nightly. aspirin 81 MG chewable Take 1 tablet 30 tablet 11 01/19/2018 01/19/2019 tablet (81 mg total) by mouth daily. carvedilol (COREG) 25 Take 1 tablet 60 tablet 11 01/18/2018 01/18/2019 MG tablet (25 mg total) by mouth 2 (two) times daily. magnesium oxide Take 1 tablet 30 tablet 0 01/19/2018 01/19/2019 (MAG-OX) 400 mg tablet (400 mg total) by mouth daily. sotalol AF (BETAPACE Take 1 tablet 60 tablet 11 01/18/2018 01/18/2019 AF) 80 MG tablet (80 mg total) by mouth every 12 (twelve) hours. famotidine (PEPCID) 20 Take 1 tablet 10 tablet 0 11/09/2018 11/14/2018 MG tablet (20 mg total) by mouth 2 (two) times daily for 5 days. aluminum & magnesium Take 10 mLs by 355 mL 0 11/09/2018 11/19/2018 hydroxide-simethicone mouth every 6 (MAALOX PLUS) (six) hours as 400-400-40 mg/5 mL needed for up suspension to 10 days. cefpodoxime (VANTIN) Take 1 tablet 14 tablet 0 11/09/2018 11/16/2018 200 MG tablet (200 mg total) by mouth 2 (two) times daily for 7 days. Active Problems Problem Noted Date Pancreatitis 01/14/2018 Sepsis 01/14/2018 Paroxysmal A-fib 01/14/2018 Encounters Date Type Specialty Care Team Description 11/09/2018 Emergency Emergency Medicine [facility], Abdominal pain, unspecified abdominal location (Primary Dx); Urinary tract infection without hematuria, site unspecified after 04/24/2018 Family History Medical History Relation Name Comments [...] Vital Sign Reading Time Taken Blood Pressure 134/63 11/09/2018 4:00 PM [employer]ODUCTION [employer] Pulse 70 11/09/2018 4:00 PM [employer]ODUCTION [employer] Temperature 37.3 C (99.1 F) 11/09/2018 4:00 PM [employer]ODUCTION [employer] Respiratory Rate 19 11/09/2018 4:00 PM [employer]ODUCTION [employer] Oxygen Saturation 99% 11/09/2018 4:00 PM [employer]ODUCTION [employer] Inhaled Oxygen Concentration - - Weight 74.8 kg (165 lb) 11/09/2018 11:48 AM [employer]ODUCTION [employer]ER Height - - Body Mass Index 28.32 11/09/2018 11:48 AM [employer]ODUCTION [employer] Plan of Treatment Not on file Procedures Procedure Name Priority Date/Time Associated Comments Diagnosis URINALYSIS W/ STAT 11/09/2018 2:09 Results for this MICROSCOPIC PM [employer] procedure are in the results section. CBC W/PLT COUNT & STAT 11/09/2018 12:39 Results for this AUTO DIFFERENTIAL PM [employer] procedure are in the results section. PT/APTT STAT 11/09/2018 12:39 Results for this PM [employer] procedure are in the results section. LIPASE STAT 11/09/2018 12:39 Results for this PM [employer] procedure are in the results section. HEPATIC FUNCTION STAT 11/09/2018 12:39 Results for this PANEL PM [employer] procedure are in the results section. BASIC METABOLIC PANEL STAT 11/09/2018 12:39 Results for this (7) PM [employer] procedure are in the results section. CBC W/PLT COUNT & STAT 11/09/2018 12:39 Results for this AUTO DIFFERENTIAL PM [employer] procedure are in the results section. after 04/24/2018 Results Urinalysis w/Microscopic (11/09/2018 2:09 PM PRODUCTION [employer]ER) Color, UA Yellow [facility] Clarity, UA Hazy [facility] Specific [place], UA 1.019 1.001 - 1.035 [facility] pH, UA 6.0 5.0 - 8.0 [facility] Protein, UA Negative Negative [facility] Glucose, UA Negative Negative [facility] Ketones, UA Negative Negative [facility] Bilirubin, UA Negative Negative [facility] Blood, UA Negative Negative [facility] Nitrite, UA Negative Negative [facility] Leukocytes, UA Large (A) Negative [facility] Urobilinogen, UA 0.2 0.2 - 1.0 mg/dL [facility] RBC, UA 9 /HPF [facility] WBC, UA 17 /HPF [facility] Mucus Rare [facility] Squam Epithel, UA 11 /HPF [facility] Amorphous Crystals Rare [facility] Specimen Source Urine, Voided [facility] Specimen Urine Performing Organization Address City/[facility] Phone Number [facility] [address] [place] [id number] CENTER PT/aPTT (11/09/2018 12:39 PM PRODUCTION SOLDERER) Protime 19.5 (H) 11.7 - 14.7 seconds [facility] INR 1.6 <=5.9 [facility] PTT 30.3 22.5 - 36.0 seconds [facility] Specimen Blood Narrative Performed At RECOMMENDED COUMADIN/WARFARIN INR THERAPY [facility] RANGES STANDARD DOSE: 2.0 - 3.0 Includes: PROPHYLAXIS for venous thrombosis, systemic embolization; TREATMENT for venous thrombosis and/or pulmonary embolus. HIGH RISK: Target INR is 2.5-3.5 for patients with mechanical heart valves. Performing Organization Address City/[facility] Phone Number [facility] [address] [place] [address] CENTER CBC with platelet count + automated diff (11/09/2018 12:39 PM PRODUCTION [employer]ER) WBC 5.6 3.5 - 10.5 K/L [facility] RBC 3.83 (L) 3.93 - 5.22 M/L [facility] Hemoglobin 12.1 11.2 - 15.7 GM/DL [facility] Hematocrit 36.1 34.1 - 44.9 % [facility] MCV 94.3 79.4 - 94.8 fL [facility] MCH 31.6 25.6 - 32.2 pg [facility] MCHC 33.5 32.2 - 35.5 GM/DL [facility] RDW 14.8 (H) 11.7 - 14.4 % [facility] Platelets 139 (L) 150 - 450 K/CU MM [facility] MPV 11.5 9.4 - 12.3 fL [facility] nRBC 0 0 - 0 /100 WBC [facility] % Neutros 71 % [facility] % Lymphs 22 % [facility] % Monos 5 % [facility] % Eos 1 % [facility] % Baso 0 % [facility] # Neutros 4.01 1.56 - 6.13 K/L [facility] # Lymphs 1.25 1.18 - 3.74 K/L [facility] # Monos 0.29 0.24 - 0.36 K/L [facility] # Eos 0.05 0.04 - 0.36 K/L [facility] # Baso 0.02 0.01 - 0.08 K/L [facility] Immature Granulocytes-Relative 0 0 - 1 % [facility] Specimen Blood Performing Organization Address City/[facility]/Zipcode Phone Number [address] [address] [phone] [place] Lipase (11/09/2018 12:39 PM [employer]ODUCTION [employer]ER) Lipase 45 8 - 78 U/L [facility] Specimen Blood Performing Organization Address City/[facility] Phone Number [address] [phone] [place] Hepatic function panel (11/09/2018 12:39 PM [employer]ODUCTION [employer]ER) Protein, Total 5.9 (L) 6.0 - 8.3 gm/dL [facility] Albumin 3.6 3.5 - 5.0 g/dL [facility] Total Bilirubin 0.6 0.2 - 1.2 mg/dL [facility] Bilirubin, Direct 0.2 0.1 - 0.5 mg/dL [facility] Alkaline Phosphatase 48 40 - 150 U/L [facility] AST 18 5 - 34 U/L [facility] ALT 14 6 - 55 U/L [facility] Specimen Blood Performing Organization Address City/[facility] Phone Number [address] [phone] [place] Basic Metabolic Panel (11/09/2018 12:39 PM PRODUCTION [employer]ER) Sodium 143 136 - 145 meq/L [facility] Potassium 3.1 (L) 3.5 - 5.1 meq/L [facility] Chloride 110 (H) 98 - 107 meq/L [facility] CO2 24 22 - 29 meq/L [facility] BUN 24 (H) 7 - 21 mg/dL [facility] Creatinine 0.69 0.57 - 1.25 mg/dL [facility] Glucose 98 70 - 105 mg/dL [facility] Calcium 9.0 8.4 - 10.2 mg/dL [facility] EGFR 82Comment: ESTIMATED GFR IS mL/min/1.73 sq m [facility] NOT ACCURATE CREATININE [facility] CLEARANCE IN PREDICTING GLOMERULAR FILTRATION RATE. ESTIMATED GFR IS NOT APPLICABLE FOR DIALYSIS PATIENTS. Specimen Blood Performing Organization Address City/State/Zipcode Phone Number [facility] [address] [place] [address] [phone] CENTER after 04/24/2018 Insurance Payer Benefit Plan / Group Subscriber ID Type Phone Address MEDICARE MEDICARE A B xxxxxxxxxxx Medicare AETNA - MGD CARE AETNA INDEMNITY NON CONTR xxxxxxxxxx Comm ([address]) [place] [address] Advance Directives For more information, please contact:[facility] [place], [place] [phone] Code Status Date Activated Date Inactivated Comments Full Code 01/14/2018 12:36 AM 01/18/2018 6:55 PM This code status was determined by: Patient
--- OUTSIDE RECORDS SUMMARY | 2019-04-25 03:17 | XMS REPORT ---
:1940 [facility] Organization [facility] Address [facility] Saunders [address] [place] [id number] Care Team Providers Name Role Phone YOAV DEL ROSARIO Unavailable Unavailable MACIEJ HAYESLILIAN Unavailable Unavailable RANCHO SANDOVAL Unavailable Unavailable Problems This patient has no known problems. Allergies, Adverse Reactions, Alerts This patient has no known allergies or adverse reactions. Medications This patient has no known medications. Results Test Description Test Time Test Comments Text Results Atomic Results Result Comments URINALYSIS W/ MICROSCOPIC 2018-11-09 14:50:00 Test Item Value Reference Range Comments COLOR (BEAKER) (test ewtq=749) Yellow CLARITY (BEAKER) (test zfmy=238) Hazy SPECIFIC GRAVITY UA (BEAKER) (test ldsm=820) 1.019 1.001-1.035 PH UA (BEAKER) (test isxq=905) 6.0 5.0-8.0 PROTEIN UA (BEAKER) (test qlxs=868) Negative Negative GLUCOSE UA (BEAKER) (test bkqm=356) Negative Negative KETONES UA (BEAKER) (test snbw=015) Negative Negative BILIRUBIN UA (BEAKER) (test bmye=986) Negative Negative BLOOD UA (BEAKER) (test hfhp=002) Negative Negative NITRITE UA (BEAKER) (test qzad=000) Negative Negative LEUKOCYTE ESTERASE UA (BEAKER) (test ohzf=029) Large Negative UROBILINOGEN UA (BEAKER) (test jcwo=095) 0.2 mg/dL 0.2-1.0 RBC UA (BEAKER) (test hlbx=758) 9 /HPF WBC UA (BEAKER) (test xwmp=881) 17 /HPF MUCUS (BEAKER) (test wrvk=7541) Rare SQUAMOUS EPITHELIAL (BEAKER) (test funw=119) 11 /HPF AMORPHOUS CRYSTALS (BEAKER) (test biob=5314) Rare SOURCE(BEAKER) (test cxtn=8337) Urine, Voided [id number] 13:11:00 Test Item Value Reference Range Comments LIPASE (BEAKER) (test cdew=303) 45 U/L 8-78 BASIC METABOLIC [id number] 13:11:00 Test Item Value Reference Range Comments SODIUM (BEAKER) (test 143 meq/L 136-145 mppo=380) POTASSIUM (BEAKER) (test 3.1 meq/L 3.5-5.1 ayfh=866) CHLORIDE (BEAKER) (test 110 meq/L 98-107 idti=566) CO2 (BEAKER) (test 24 meq/L 22-29 qlcb=421) BLOOD UREA NITROGEN 24 mg/dL 7-21 (BEAKER) (test kwzy=217) CREATININE (BEAKER) (test 0.69 mg/dL 0.57-1.25 gqso=787) GLUCOSE RANDOM (BEAKER) 98 mg/dL 70-105 (test lprc=553) CALCIUM (BEAKER) (test 9.0 mg/dL 8.4-10.2 tsdz=808) EGFR (BEAKER) (test 82 mL/min/1.73 sq m ESTIMATED GFR IS NOT lzme=1858) ACCURATE CREATININE CLEARANCE IN PREDICTING GLOMERULAR FILTRATION RATE. ESTIMATED GFR IS NOT APPLICABLE FOR DIALYSIS PATIENTS. HEPATIC FUNCTION [id number] 13:11:00 Test Item Value Reference Range Comments TOTAL PROTEIN (BEAKER) (test vxfw=803) 5.9 gm/dL 6.0-8.3 ALBUMIN (BEAKER) (test rxnl=7706) 3.6 g/dL 3.5-5.0 BILIRUBIN TOTAL (BEAKER) (test mvzl=970) 0.6 mg/dL 0.2-1.2 BILIRUBIN DIRECT (BEAKER) (test zmxx=191) 0.2 mg/dL 0.1-0.5 ALKALINE PHOSPHATASE (BEAKER) (test ymbs=938) 48 U/L 40-150 AST (SGOT) (BEAKER) (test pron=555) 18 U/L 5-34 ALT (SGPT) (BEAKER) (test nkjk=959) 14 U/L 6-55 [id number] 13:02:00 Test Item Value Reference Range Comments PROTIME (BEAKER) (test mica=110) 19.5 seconds 11.7-14.7 INR (BEAKER) (test djmh=893) 1.6 <=5.9 PARTIAL THROMBOPLASTIN TIME (BEAKER) (test 30.3 seconds 22.5-36.0 qtcc=197) RECOMMENDED COUMADIN/WARFARIN INR THERAPY RANGESSTANDARD DOSE: 2.0 - 3.0 Includes: PROPHYLAXIS forvenous thrombosis, systemic embolization; TREATMENT for venous thrombosis and/or pulmonary embolus.HIGH RISK: Target INR is 2.5-3.5 for patients with mechanical heart valves.CBC W/PLT COUNT & AUTO [id number] 12:56:00 Test Item Value Reference Range Comments WHITE BLOOD CELL COUNT (BEAKER) (test mfzh=093) 5.6 K/ L 3.5-10.5 RED BLOOD CELL COUNT (BEAKER) (test ixgs=488) 3.83 M/ L 3.93-5.22 HEMOGLOBIN (BEAKER) (test hhmf=275) 12.1 GM/DL 11.2-15.7 HEMATOCRIT (BEAKER) (test dxgu=202) 36.1 % 34.1-44.9 MEAN CORPUSCULAR VOLUME (BEAKER) (test hjed=895) 94.3 fL 79.4-94.8 MEAN CORPUSCULAR HEMOGLOBIN (BEAKER) (test 31.6 pg 25.6-32.2 hpcx=024) MEAN CORPUSCULAR HEMOGLOBIN CONC (BEAKER) (test 33.5 GM/DL 32.2-35.5 lvqf=336) RED CELL DISTRIBUTION WIDTH (BEAKER) (test 14.8 % 11.7-14.4 yyzu=755) PLATELET COUNT (BEAKER) (test geqt=876) 139 K/CU MM 150-450 MEAN PLATELET VOLUME (BEAKER) (test znxs=209) 11.5 fL 9.4-12.3 NUCLEATED RED BLOOD CELLS (BEAKER) (test 0 /100 WBC 0-0 ymkq=616) NEUTROPHILS RELATIVE PERCENT (BEAKER) (test 71 % hubm=748) LYMPHOCYTES RELATIVE PERCENT (BEAKER) (test 22 % ufpt=070) MONOCYTES RELATIVE PERCENT (BEAKER) (test 5 % hzom=223) EOSINOPHILS RELATIVE PERCENT (BEAKER) (test 1 % ihzw=075) BASOPHILS RELATIVE PERCENT (BEAKER) (test 0 % ifnu=729) NEUTROPHILS ABSOLUTE COUNT (BEAKER) (test 4.01 K/ L 1.56-6.13 awun=850) LYMPHOCYTES ABSOLUTE COUNT (BEAKER) (test 1.25 K/ L 1.18-3.74 xfpn=757) MONOCYTES ABSOLUTE COUNT (BEAKER) (test 0.29 K/ L 0.24-0.36 nmgz=165) EOSINOPHILS ABSOLUTE COUNT (BEAKER) (test 0.05 K/ L 0.04-0.36 svse=547) BASOPHILS ABSOLUTE COUNT (BEAKER) (test 0.02 K/ L 0.01-0.08 sxcm=635) IMMATURE GRANULOCYTES-RELATIVE PERCENT (BEAKER) 0 % 0-1 (test eqiw=5986) TISSUE [id number] 13:06:00Surgical Pathology Report Case: [id number] Authorizing Provider: Maciej Hayes Collected: 03/14/2018 1115 Ordering Location: [facility] Endoscopy Received: 03/14/2018 1351 Services Pathologist: Mara Barboza MD Specimens: A) - Polyp, Duodenum B) - Stomach, Antrum, bx C) - Biopsy, Gastric, gastric body D) - Biopsy, Esophagus, random THIS ADDENDUM IS ISSUED TO REPORT THE RESULT OF IMMUNOHISTOCHEMICAL STUDY FOR HELICOBACTER PYLORI OM SPECIMEN B: - NEGATIVE CPT CODE: [id number] electronically signed by Mara Barboza MD on 03/20/2018 at 1:06 PMA. DUODENUM, ENDOSCOPIC POLYPECTOMY: - COMPATIBLE WITH PEPTIC DUODENITIS - NO FEATURES OF CELIAC DISEASE SEEM - NEGATIVE FOR DYSPLASIA OR MALIGNANCYB. STOMACH, ANTRUM, ENDOSCOPIC BIOPSY: - ACUTE GASTRITIS WITH EROSIONS AND REACTIVE GASTROPATHY - NO HELICOBACTER PYLORI-LIKE ORGANISMS SEEN ON WARTHIN-STARRY STAIN - NO INTESTINAL METAPLASI, DYSPLASIA OR MALIGNANCY NOTED - IMMUNOHISTOCHEMICAL STAINFOR HELICOBACTER IS BEING DONE; RESULT WILL BE ISSUED IN FINAL REPORTC. STOMACH, BODY, ENDOSCOPIC BIOPSY: - OXYNTIC MUCOSA WITH NO PATHOLOGIC ALTERATION - NO HELICOBACTER PYLORI-LIKE ORGANISMS SEEN ON WARTHIN-STARRY STAIN - NO INTESTINAL METAPLASIA, DYSPLASIA OR MALIGNANCY NOTED D. ESOPHAGUS, RANDOM,ENDOSCOPIC BIOPSY - MULTIPLE FRAGMENTS OF SQUAMOUS MUCOSA WITH REACTIVE CHANGES - NO FEATURESOF REFLUX ESOPHAGITIS ARE SEEN - NO FEATURES OF EOSINOPHILIC ESOPHAGITIS NOTED - NO COLUMNAR MUCOSA PRESENT - NO DYSPLASIA OR MALIGNANCY SEEN Signing Pathologist Direct Phone Line: [phone] X [phone]; [phone] X [phone]. Polyp, duodenum. B. Stomach antrum. C. Biopsy, gastric , description gastric body. D. Biopsy, esophagus,description randomPart A. Received in formalin, labeled "polyp, [...] on this case and the interpretation is incorporatedin the diagnostic report above:AMBER X 2POCT-GLUCOSE [id number] 12:41 :00 Test Item Value Reference Range Comments POC-GLUCOSE METER (BEAKER) 75 mg/dL 70-110 TESTED AT [facility] [address] [facility] (test tdqf=1304) [facility] [address] BLOOD [id number] 06:00:00 Test Item Value Reference Range Comments CULTURE (BEAKER) (test srbq=8153) No growth in 5 days BLOOD [id number] 06:00:00 Test Item Value Reference Range Comments CULTURE (BEAKER) (test zbph=6325) No growth in 5 days POCT-GLUCOSE [id number] 12:32:00 Test Item Value Reference Range Comments POC-GLUCOSE METER (BEAKER) 217 mg/dL 70-110 TESTED AT [facility] [address] [facility] (test ghab=0177) [facility] [address] POCT-GLUCOSE [id number] 08:36:00 Test Item Value Reference Range Comments POC-GLUCOSE METER (BEAKER) 92 mg/dL 70-110 TESTED AT [facility] [address] [facility] (test niyn=1617) [facility] [address] COMPREHENSIVE METABOLIC [id number] 04:59:00 Test Item Value Reference Range Comments TOTAL PROTEIN (BEAKER) 5.2 gm/dL 6.0-8.3 (test qplb=067) ALBUMIN (BEAKER) (test 3.0 g/dL 3.5-5.0 bgnt=3167) ALKALINE PHOSPHATASE 39 U/L 40-150 (BEAKER) (test slfa=663) BILIRUBIN TOTAL (BEAKER) 0.4 mg/dL 0.2-1.2 (test lhev=661) SODIUM (BEAKER) (test 145 meq/L 136-145 glun=011) POTASSIUM (BEAKER) (test 3.6 meq/L 3.5-5.1 ejyd=201) CHLORIDE (BEAKER) (test 109 meq/L 98-107 lvgk=319) CO2 (BEAKER) (test 28 meq/L 22-29 cfuk=933) BLOOD UREA NITROGEN 8 mg/dL 7-21 (BEAKER) (test fijl=789) CREATININE (BEAKER) (test 0.70 mg/dL 0.57-1.25 fnbn=207) GLUCOSE RANDOM (BEAKER) 107 mg/dL 70-105 (test bumh=752) CALCIUM (BEAKER) (test 8.4 mg/dL 8.4-10.2 rzjs=735) AST (SGOT) (BEAKER) (test 9 U/L 5-34 jjkg=168) ALT (SGPT) (BEAKER) (test < U/L 6-55 ughn=814) EGFR (BEAKER) (test 81 mL/min/1.73 sq m ESTIMATED GFR IS NOT akia=9959) ACCURATE CREATININE CLEARANCE IN PREDICTING GLOMERULAR FILTRATION RATE. ESTIMATED GFR IS NOT APPLICABLE FOR DIALYSIS PATIENTS. [id number] 04:50:00 Test Item Value Reference Range Comments MAGNESIUM (BEAKER) (test dfkc=097) 1.7 mg/dL 1.6-2.6 PROTHROMBIN [id number] 04:35:00 Test Item Value Reference Range Comments PROTIME (BEAKER) (test psqq=126) 23.7 seconds 11.7-14.7 INR (BEAKER) (test oeqa=763) 2.1 <=5.9 RECOMMENDED COUMADIN/WARFARIN INR THERAPY RANGESSTANDARD DOSE: 2.0 - 3.0 Includes: PROPHYLAXIS forvenous thrombosis, systemic embolization; TREATMENT for venous thrombosis and/or pulmonary embolus.HIGH RISK: Target INR is 2.5-3.5 for patients with mechanical heart valves.CBC W/PLT COUNT & AUTO [id number] 04:24:00 Test Item Value Reference Range Comments WHITE BLOOD CELL COUNT (BEAKER) (test nbow=321) 4.8 K/ L 3.5-10.5 RED BLOOD CELL COUNT (BEAKER) (test zlxv=993) 3.28 M/ L 3.93-5.22 HEMOGLOBIN (BEAKER) (test fldd=392) 10.4 GM/DL 11.2-15.7 HEMATOCRIT (BEAKER) (test rrqg=725) 32.7 % 34.1-44.9 MEAN CORPUSCULAR VOLUME (BEAKER) (test cyym=995) 99.7 fL 79.4-94.8 MEAN CORPUSCULAR HEMOGLOBIN (BEAKER) (test 31.7 pg 25.6-32.2 ilsj=888) MEAN CORPUSCULAR HEMOGLOBIN CONC (BEAKER) (test 31.8 GM/DL 32.2-35.5 ddzg=753) RED CELL DISTRIBUTION WIDTH (BEAKER) (test 14.7 % 11.7-14.4 vlds=239) PLATELET COUNT (BEAKER) (test snpz=979) 141 K/CU MM 150-450 MEAN PLATELET VOLUME (BEAKER) (test jlrl=273) 11.2 fL 9.4-12.3 NUCLEATED RED BLOOD CELLS (BEAKER) (test 0 /100 WBC 0-0 taeo=638) NEUTROPHILS RELATIVE PERCENT (BEAKER) (test 67 % akol=877) LYMPHOCYTES RELATIVE PERCENT (BEAKER) (test 26 % zoiu=784) MONOCYTES RELATIVE PERCENT (BEAKER) (test 5 % qgmt=549) EOSINOPHILS RELATIVE PERCENT (BEAKER) (test 1 % urdf=889) BASOPHILS RELATIVE PERCENT (BEAKER) (test 0 % btpe=220) NEUTROPHILS ABSOLUTE COUNT (BEAKER) (test 3.21 K/ L 1.56-6.13 sxpt=707) LYMPHOCYTES ABSOLUTE COUNT (BEAKER) (test 1.24 K/ L 1.18-3.74 dlss=564) MONOCYTES ABSOLUTE COUNT (BEAKER) (test 0.23 K/ L 0.24-0.36 byxh=527) EOSINOPHILS ABSOLUTE COUNT (BEAKER) (test 0.06 K/ L 0.04-0.36 zvzd=899) BASOPHILS ABSOLUTE COUNT (BEAKER) (test 0.02 K/ L 0.01-0.08 gwzq=711) IMMATURE GRANULOCYTES-RELATIVE PERCENT (BEAKER) 1 % 0-1 (test xanp=9212) POCT-GLUCOSE [id number] 22:13:00 Test Item Value Reference Range Comments POC-GLUCOSE METER (BEAKER) 194 mg/dL 70-110 TESTED AT [address] (test vmow=6173) [place] [address] POCT-GLUCOSE [id number] 18:14:00 Test Item Value Reference Range Comments POC-GLUCOSE METER (BEAKER) 195 mg/dL 70-110 TESTED AT [address] (test cznc=3989) [place] [id number] POCT-GLUCOSE [id number] 12:20:00 Test Item Value Reference Range Comments POC-GLUCOSE METER (BEAKER) 224 mg/dL 70-110 TESTED AT [address] (test vsdr=9151) [place] [id number] 08:55:00 Test Item Value Reference Range Comments LIPASE (BEAKER) (test pkmo=313) 471 U/L 8-78 POCT-GLUCOSE [id number] 08:12:00 Test Item Value Reference Range Comments POC-GLUCOSE METER (BEAKER) 128 mg/dL 70-110 TESTED AT [address] (test guns=2310) [place] [id number] 04:12:00 Test Item Value Reference Range Comments T3 TOTAL (BEAKER) (test vfol=473) 41 ng/dL 48-159 T3, [id number] 04:11:00 Test Item Value Reference Range Comments T3 FREE (BEAKER) (test frvg=199) 1.31 pg/mL 1.71-3.71 COMPREHENSIVE METABOLIC [id number] 04:01:00 Test Item Value Reference Range Comments TOTAL PROTEIN (BEAKER) 4.8 gm/dL 6.0-8.3 (test nboe=550) ALBUMIN (BEAKER) (test 2.8 g/dL 3.5-5.0 nrih=3691) ALKALINE PHOSPHATASE 33 U/L 40-150 (BEAKER) (test annk=006) BILIRUBIN TOTAL (BEAKER) 0.4 mg/dL 0.2-1.2 (test fhbg=877) SODIUM (BEAKER) (test 143 meq/L 136-145 ojve=636) POTASSIUM (BEAKER) (test 4.0 meq/L 3.5-5.1 fpau=042) CHLORIDE (BEAKER) (test 110 meq/L 98-107 tleb=860) CO2 (BEAKER) (test 26 meq/L 22-29 qayf=094) BLOOD UREA NITROGEN 9 mg/dL 7-21 (BEAKER) (test steg=588) CREATININE (BEAKER) (test 0.73 mg/dL 0.57-1.25 leez=231) GLUCOSE RANDOM (BEAKER) 213 mg/dL 70-105 (test mnlg=595) CALCIUM (BEAKER) (test 8.2 mg/dL 8.4-10.2 uorl=409) AST (SGOT) (BEAKER) (test 8 U/L 5-34 zsfp=549) ALT (SGPT) (BEAKER) (test < U/L 6-55 xkbn=608) EGFR (BEAKER) (test 77 mL/min/1.73 sq m ESTIMATED GFR IS NOT vwiy=5362) ACCURATE CREATININE CLEARANCE IN PREDICTING GLOMERULAR FILTRATION RATE. ESTIMATED GFR IS NOT APPLICABLE FOR DIALYSIS PATIENTS. [id number] 03:54:00 Test Item Value Reference Range Comments MAGNESIUM (BEAKER) (test vpbl=659) 1.7 mg/dL 1.6-2.6 PROTHROMBIN [id number] 03:53:00 Test Item Value Reference Range Comments PROTIME (BEAKER) (test orvu=413) 22.4 seconds 11.7-14.7 INR (BEAKER) (test xxmu=538) 2.0 <=5.9 RECOMMENDED COUMADIN/WARFARIN INR THERAPY RANGESSTANDARD DOSE: 2.0 - 3.0 Includes: PROPHYLAXIS forvenous thrombosis, systemic embolization; TREATMENT for venous thrombosis and/or pulmonary embolus.HIGH RISK: Target INR is 2.5-3.5 for patients with mechanical heart valves.CBC W/PLT COUNT & AUTO [id number] 03:46:00 Test Item Value Reference Range Comments WHITE BLOOD CELL COUNT (BEAKER) (test elxi=964) 5.3 K/ L 3.5-10.5 RED BLOOD CELL COUNT (BEAKER) (test usca=502) 3.04 M/ L 3.93-5.22 HEMOGLOBIN (BEAKER) (test jtip=171) 9.7 GM/DL 11.2-15.7 HEMATOCRIT (BEAKER) (test kolt=401) 30.6 % 34.1-44.9 MEAN CORPUSCULAR VOLUME (BEAKER) (test pxku=530) 100.7 fL 79.4-94.8 MEAN CORPUSCULAR HEMOGLOBIN (BEAKER) (test 31.9 pg 25.6-32.2 vsji=727) MEAN CORPUSCULAR HEMOGLOBIN CONC (BEAKER) (test 31.7 GM/DL 32.2-35.5 ocna=114) RED CELL DISTRIBUTION WIDTH (BEAKER) (test 14.6 % 11.7-14.4 qrwn=409) PLATELET COUNT (BEAKER) (test ilrr=670) 135 K/CU MM 150-450 MEAN PLATELET VOLUME (BEAKER) (test wlml=855) 11.4 fL 9.4-12.3 NUCLEATED RED BLOOD CELLS (BEAKER) (test 0 /100 WBC 0-0 snbx=658) NEUTROPHILS RELATIVE PERCENT (BEAKER) (test 76 % hqpr=222) LYMPHOCYTES RELATIVE PERCENT (BEAKER) (test 19 % hbrb=583) MONOCYTES RELATIVE PERCENT (BEAKER) (test 3 % sgnu=718) EOSINOPHILS RELATIVE PERCENT (BEAKER) (test 0 % jaua=510) BASOPHILS RELATIVE PERCENT (BEAKER) (test 0 % uuie=746) NEUTROPHILS ABSOLUTE COUNT (BEAKER) (test 4.02 K/ L 1.56-6.13 zgca=420) LYMPHOCYTES ABSOLUTE COUNT (BEAKER) (test 1.01 K/ L 1.18-3.74 hysc=805) MONOCYTES ABSOLUTE COUNT (BEAKER) (test 0.15 K/ L 0.24-0.36 hngs=669) EOSINOPHILS ABSOLUTE COUNT (BEAKER) (test 0.01 K/ L 0.04-0.36 hqdn=081) BASOPHILS ABSOLUTE COUNT (BEAKER) (test 0.01 K/ L 0.01-0.08 bvss=986) IMMATURE GRANULOCYTES-RELATIVE PERCENT (BEAKER) 1 % 0-1 (test ajjb=9929) POCT-GLUCOSE [id number] 22:34:00 Test Item Value Reference Range Comments POC-GLUCOSE METER (BEAKER) 252 mg/dL 70-110 TESTED AT [address] (test rdzi=9133) [place] [address] [id number] 19:36:00 Test Item Value Reference Range Comments MAGNESIUM (BEAKER) (test yqmt=546) 1.6 mg/dL 1.6-2.6 BASIC METABOLIC [id number] 19:36:00 Test Item Value Reference Range Comments SODIUM (BEAKER) (test 143 meq/L 136-145 mbha=558) POTASSIUM (BEAKER) (test 4.1 meq/L 3.5-5.1 revn=784) CHLORIDE (BEAKER) (test 109 meq/L 98-107 sfxa=539) CO2 (BEAKER) (test 24 meq/L 22-29 advu=677) BLOOD UREA NITROGEN 9 mg/dL 7-21 (BEAKER) (test xrgc=190) CREATININE (BEAKER) (test 0.74 mg/dL 0.57-1.25 qpfi=808) GLUCOSE RANDOM (BEAKER) 249 mg/dL 70-105 (test twgl=917) CALCIUM (BEAKER) (test 8.1 mg/dL 8.4-10.2 ckjo=987) EGFR (BEAKER) (test 76 mL/min/1.73 sq m ESTIMATED GFR IS NOT inyd=8226) ACCURATE CREATININE CLEARANCE IN PREDICTING GLOMERULAR FILTRATION RATE. ESTIMATED GFR IS NOT APPLICABLE FOR DIALYSIS PATIENTS. URINE [id number] 11:51:00 Test Item Value Reference Range Comments CULTURE (BEAKER) (test fyvf=9016) No growth POCT-GLUCOSE [id number] 11:42:00 Test Item Value Reference Range Comments POC-GLUCOSE METER (BEAKER) 205 mg/dL 70-110 TESTED AT [address] (test adfu=5348) [place] [address] POCT-GLUCOSE [id number] 08:08:00 Test Item Value Reference Range Comments POC-GLUCOSE METER (BEAKER) 119 mg/dL 70-110 TESTED AT [address] (test jfmk=8795) [place] [id number] C. DIFFICILE GDH [id number] 07:40:00 Test Item Value Reference Range Comments CDT TOXIN (test Negative Negative opah=[id number]) CDT GDH ANTIGEN (test Positive Negative C. difficile present but toxin xzhv=[id number]) not detected. Indicates colonization with non-toxigenic strain or level of toxin below detectable levels. No need for enteric isolation. Treatment is rarely needed (only when strong clinical suspicion for Clostridium difficile infection) Testing performed by [employer] Rapid [employer] Assay. For GDH, published sensitivity of the assay is 98.7% compared to cytotoxicity testing. For Toxin AB, published sensitivity is 87.8% and specificity 99.4% compared to cytotoxicity testing.Verification of kit performance was done by the [facility] Microbiology Lab prior to clinical use.POCT-GLUCOSE [id number] 06:37:00 Test Item Value Reference Range Comments POC-GLUCOSE METER (BEAKER) 141 mg/dL 70-110 TESTED AT [address] (test gnvh=2168) [place] [id number] COMPREHENSIVE METABOLIC [id number] 04:48:00 Test Item Value Reference Range Comments TOTAL PROTEIN (BEAKER) 4.7 gm/dL 6.0-8.3 (test oakj=317) ALBUMIN (BEAKER) (test 2.7 g/dL 3.5-5.0 kuas=5187) ALKALINE PHOSPHATASE 33 U/L 40-150 (BEAKER) (test eeqt=490) BILIRUBIN TOTAL (BEAKER) 0.4 mg/dL 0.2-1.2 (test fmih=127) SODIUM (BEAKER) (test 145 meq/L 136-145 nrog=798) POTASSIUM (BEAKER) (test 3.7 meq/L 3.5-5.1 gdkb=866) CHLORIDE (BEAKER) (test 110 meq/L 98-107 kmtc=529) CO2 (BEAKER) (test 28 meq/L 22-29 mxql=265) BLOOD UREA NITROGEN 11 mg/dL 7-21 (BEAKER) (test fjfe=152) CREATININE (BEAKER) (test 0.74 mg/dL 0.57-1.25 kkvg=514) GLUCOSE RANDOM (BEAKER) 137 mg/dL 70-105 (test dsiu=965) CALCIUM (BEAKER) (test 8.2 mg/dL 8.4-10.2 uada=291) AST (SGOT) (BEAKER) (test 8 U/L 5-34 jryr=128) ALT (SGPT) (BEAKER) (test < U/L 6-55 sjpz=337) EGFR (BEAKER) (test 76 mL/min/1.73 sq m ESTIMATED GFR IS NOT eapd=5796) ACCURATE CREATININE CLEARANCE IN PREDICTING GLOMERULAR FILTRATION RATE. ESTIMATED GFR IS NOT APPLICABLE FOR DIALYSIS PATIENTS. PROTHROMBIN [id number] 04:40:00 Test Item Value Reference Range Comments PROTIME (BEAKER) (test oskl=332) 23.8 seconds 11.7-14.7 INR (BEAKER) (test cxmq=751) 2.1 <=5.9 RECOMMENDED COUMADIN/WARFARIN INR THERAPY RANGESSTANDARD DOSE: 2.0 - 3.0 Includes: PROPHYLAXIS forvenous thrombosis, systemic embolization; TREATMENT for venous thrombosis and/or pulmonary embolus.HIGH RISK: Target INR is 2.5-3.5 for patients with mechanical heart valves.While on warfarin.[id number] 04:29:00 Test Item Value Reference Range Comments MAGNESIUM (BEAKER) (test ifma=999) 2.0 mg/dL 1.6-2.6 CBC W/PLT COUNT & AUTO [id number] 04:11:00 Test Item Value Reference Range Comments WHITE BLOOD CELL COUNT (BEAKER) (test likw=309) 5.8 K/ L 3.5-10.5 RED BLOOD CELL COUNT (BEAKER) (test buoq=433) 3.18 M/ L 3.93-5.22 HEMOGLOBIN (BEAKER) (test ezss=026) 10.0 GM/DL 11.2-15.7 HEMATOCRIT (BEAKER) (test emhv=495) 31.8 % 34.1-44.9 MEAN CORPUSCULAR VOLUME (BEAKER) (test wvhr=312) 100.0 fL 79.4-94.8 MEAN CORPUSCULAR HEMOGLOBIN (BEAKER) (test 31.4 pg 25.6-32.2 bnjy=143) MEAN CORPUSCULAR HEMOGLOBIN CONC (BEAKER) (test 31.4 GM/DL 32.2-35.5 wgtn=141) RED CELL DISTRIBUTION WIDTH (BEAKER) (test 14.9 % 11.7-14.4 iwsq=611) PLATELET COUNT (BEAKER) (test mmom=293) 141 K/CU MM 150-450 MEAN PLATELET VOLUME (BEAKER) (test ppbk=622) 11.3 fL 9.4-12.3 NUCLEATED RED BLOOD CELLS (BEAKER) (test 0 /100 WBC 0-0 zbuv=765) NEUTROPHILS RELATIVE PERCENT (BEAKER) (test 71 % aatt=685) LYMPHOCYTES RELATIVE PERCENT (BEAKER) (test 23 % kkge=845) MONOCYTES RELATIVE PERCENT (BEAKER) (test 4 % mkyc=531) EOSINOPHILS RELATIVE PERCENT (BEAKER) (test 0 % nadc=275) BASOPHILS RELATIVE PERCENT (BEAKER) (test 0 % bsow=263) NEUTROPHILS ABSOLUTE COUNT (BEAKER) (test 4.14 K/ L 1.56-6.13 saxw=493) LYMPHOCYTES ABSOLUTE COUNT (BEAKER) (test 1.34 K/ L 1.18-3.74 wmzv=337) MONOCYTES ABSOLUTE COUNT (BEAKER) (test 0.23 K/ L 0.24-0.36 htrv=486) EOSINOPHILS ABSOLUTE COUNT (BEAKER) (test 0.02 K/ L 0.04-0.36 bjgf=389) BASOPHILS ABSOLUTE COUNT (BEAKER) (test 0.02 K/ L 0.01-0.08 oiqm=342) IMMATURE GRANULOCYTES-RELATIVE PERCENT (BEAKER) 1 % 0-1 (test eixq=7124) POCT-GLUCOSE [id number] 22:19:00 Test Item Value Reference Range Comments POC-GLUCOSE METER (BEAKER) 266 mg/dL 70-110 TESTED AT [facility] [address] [facility] (test hmpf=4331) [facility] [address] [id number] 17:54:00 Test Item Value Reference Range Comments POTASSIUM (BEAKER) (test xwxz=350) 4.2 meq/L 3.5-5.1 [id number] 17:23:00 Test Item Value Reference Range Comments MAGNESIUM (BEAKER) (test tets=141) 1.7 mg/dL 1.6-2.6 POCT-GLUCOSE [id number] 12:41:00 Test Item Value Reference Range Comments POC-GLUCOSE METER (BEAKER) 111 mg/dL 70-110 TESTED AT [facility] [address] [facility] (test ddyn=7164) [facility] [address] [id number] 12:40:00 Test Item Value Reference Range Comments POTASSIUM (BEAKER) (test gfrt=053) 3.5 meq/L 3.5-5.1 POCT-GLUCOSE [id number] 10:05:00 Test Item Value Reference Range Comments POC-GLUCOSE METER (BEAKER) 94 mg/dL 70-110 TESTED AT [address] (test dwfm=9189) [facility] [address] COMPREHENSIVE METABOLIC [id number] 05:47:00 Test Item Value Reference Range Comments TOTAL PROTEIN (BEAKER) 4.7 gm/dL 6.0-8.3 (test csnq=471) ALBUMIN (BEAKER) (test 2.7 g/dL 3.5-5.0 itja=0814) ALKALINE PHOSPHATASE 31 U/L 40-150 (BEAKER) (test jghb=562) BILIRUBIN TOTAL (BEAKER) 0.5 mg/dL 0.2-1.2 (test kosh=397) SODIUM (BEAKER) (test 147 meq/L 136-145 lgqi=952) POTASSIUM (BEAKER) (test 2.9 meq/L 3.5-5.1 hpam=538) CHLORIDE (BEAKER) (test 110 meq/L 98-107 mmrt=971) CO2 (BEAKER) (test 27 meq/L 22-29 wtjz=233) BLOOD UREA NITROGEN 10 mg/dL 7-21 (BEAKER) (test nzkx=856) CREATININE (BEAKER) (test 0.70 mg/dL 0.57-1.25 bgsz=281) GLUCOSE RANDOM (BEAKER) 86 mg/dL 70-105 (test jhcj=829) CALCIUM (BEAKER) (test 7.9 mg/dL 8.4-10.2 kopw=537) AST (SGOT) (BEAKER) (test 9 U/L 5-34 kuba=288) ALT (SGPT) (BEAKER) (test < U/L 6-55 jhvj=026) EGFR (BEAKER) (test 81 mL/min/1.73 sq m ESTIMATED GFR IS NOT cmkp=3412) ACCURATE CREATININE CLEARANCE IN PREDICTING GLOMERULAR FILTRATION RATE. ESTIMATED GFR IS NOT APPLICABLE FOR DIALYSIS PATIENTS. [id number] 05:44:00 Test Item Value Reference Range Comments MAGNESIUM (BEAKER) (test vptz=674) 2.0 mg/dL 1.6-2.6 PROTHROMBIN [id number] 05:37:00 Test Item Value Reference Range Comments PROTIME (BEAKER) (test msrp=814) 24.0 seconds 11.7-14.7 INR (BEAKER) (test bdiq=772) 2.2 <=5.9 RECOMMENDED COUMADIN/WARFARIN INR THERAPY RANGESSTANDARD DOSE: 2.0 - 3.0 Includes: PROPHYLAXIS forvenous thrombosis, systemic embolization; TREATMENT for venous thrombosis and/or pulmonary embolus.HIGH RISK: Target INR is 2.5-3.5 for patients with mechanical heart valves.PROTHROMBIN [id number] 05:36: 00 Test Item Value Reference Range Comments PROTIME (BEAKER) (test upss=637) 24.2 seconds 11.7-14.7 INR (BEAKER) (test kive=771) 2.2 <=5.9 RECOMMENDED COUMADIN/WARFARIN INR THERAPY RANGESSTANDARD DOSE: 2.0 - 3.0 Includes: PROPHYLAXIS forvenous thrombosis, systemic embolization; TREATMENT for venous thrombosis and/or pulmonary embolus.HIGH RISK: Target INR is 2.5-3.5 for patients with mechanical heart valves.While on warfarin.CBC W/PLT COUNT &amp ; AUTO [id number] 05:35:00 Test Item Value Reference Range Comments WHITE BLOOD CELL COUNT (BEAKER) (test vytj=134) 4.3 K/ L 3.5-10.5 RED BLOOD CELL COUNT (BEAKER) (test bxtt=029) 3.29 M/ L 3.93-5.22 HEMOGLOBIN (BEAKER) (test oyqj=090) 10.3 GM/DL 11.2-15.7 HEMATOCRIT (BEAKER) (test qxyw=918) 33.2 % 34.1-44.9 MEAN CORPUSCULAR VOLUME (BEAKER) (test dznj=010) 100.9 fL 79.4-94.8 MEAN CORPUSCULAR HEMOGLOBIN (BEAKER) (test 31.3 pg 25.6-32.2 clql=251) MEAN CORPUSCULAR HEMOGLOBIN CONC (BEAKER) (test 31.0 GM/DL 32.2-35.5 tekp=663) RED CELL DISTRIBUTION WIDTH (BEAKER) (test 14.9 % 11.7-14.4 qebv=577) PLATELET COUNT (BEAKER) (test bbjh=858) 138 K/CU MM 150-450 MEAN PLATELET VOLUME (BEAKER) (test vizb=070) 11.5 fL 9.4-12.3 NUCLEATED RED BLOOD CELLS (BEAKER) (test 0 /100 WBC 0-0 olgq=254) NEUTROPHILS RELATIVE PERCENT (BEAKER) (test 66 % evco=031) LYMPHOCYTES RELATIVE PERCENT (BEAKER) (test 27 % epnz=062) MONOCYTES RELATIVE PERCENT (BEAKER) (test 4 % hoyc=369) EOSINOPHILS RELATIVE PERCENT (BEAKER) (test 1 % fbzm=702) BASOPHILS RELATIVE PERCENT (BEAKER) (test 0 % vddc=680) NEUTROPHILS ABSOLUTE COUNT (BEAKER) (test 2.82 K/ L 1.56-6.13 bdwd=493) LYMPHOCYTES ABSOLUTE COUNT (BEAKER) (test 1.16 K/ L 1.18-3.74 zddi=532) MONOCYTES ABSOLUTE COUNT (BEAKER) (test 0.18 K/ L 0.24-0.36 rbww=046) EOSINOPHILS ABSOLUTE COUNT (BEAKER) (test 0.06 K/ L 0.04-0.36 dsjv=447) BASOPHILS ABSOLUTE COUNT (BEAKER) (test 0.01 K/ L 0.01-0.08 zezu=129) IMMATURE GRANULOCYTES-RELATIVE PERCENT (BEAKER) 1 % 0-1 (test wmni=5195) POCT-GLUCOSE [id number] 23:56:00 Test Item Value Reference Range Comments POC-GLUCOSE METER (BEAKER) 105 mg/dL 70-110 TESTED AT [facility] [address] [facility] (test svhe=7715) [facility] [address] TROPONIN [id number] 13:02:00 Test Item Value Reference Range Comments TROPONIN I (BEAKER) (test zmip=426) 0.02 ng/mL 0.00-0.03 Troponin I (TnI) levels [...] NATRIURETIC PEPTIDE (BEAKER) (test 975 pg/mL 0-100 uquv=845) POCT-GLUCOSE [id number] 12:18:00 Test Item Value Reference Range Comments POC-GLUCOSE METER (BEAKER) 175 mg/dL 70-110 TESTED AT [facility] [address] [facility] (test nmot=8975) [facility] [address] U/S, ABDOMINAL, [id number] 10:23:00Abdomen limited area? Add comment if clarification [...] MDReport Verified Date/Time: 01/14/2018 10:23:02 Reading Location: [facility] C0X Ortho Consult Reading Room T4, [id number] 08:42 :00 Test Item Value Reference Range Comments FREE T4 (BEAKER) (test jgdz=654) 0.83 ng/dL 0.70-1.48 POCT-GLUCOSE [id number] 08:37:00 Test Item Value Reference Range Comments POC-GLUCOSE METER (BEAKER) 161 mg/dL 70-110 TESTED AT [facility] [address] [facility] (test ovjf=5724) [facility] [address] TSH/FREE T4 IF [id number] 08:05:00 Test Item Value Reference Range Comments THYROID STIMULATING HORMONE (BEAKER) (test 0.02 uIU/mL 0.35-4.94 swhw=115) VITAMIN B12 AND [id number] 07:42:00 Test Item Value Reference Range Comments VITAMIN B12 (BEAKER) (test lgnx=204) 1276 pg/mL 213-816 FOLATE (BEAKER) (test ivfb=864) 8.8 ng/mL >=7.0 LIPID [id number] 07:14:00 Test Item Value Reference Range Comments TRIGLYCERIDES (BEAKER) (test nlmv=115) 171 mg/dL CHOLESTEROL (BEAKER) (test smyl=182) 123 mg/dL HDL CHOLESTEROL (BEAKER) (test osad=024) 25 mg/dL LDL CHOLESTEROL CALCULATED (BEAKER) (test 64 mg/dL zrjx=195) Triglyceride Reference Range: Low Risk <150 Borderline 150- 199 High Risk 200-499 Very High Risk >=500Cholesterol Reference Range: Low Risk <200 Borderline 200-239 High Risk > 240HDL Cholesterol Reference Range: Low Risk >=60 High Risk <40LDL Cholesterol Reference Range: Optimal <100 Near Optimal 100-129 Borderline 130-159 High 160-189 Very High >=190TROPONIN [id number] 07:12:00 Test Item Value Reference Range Comments TROPONIN I (BEAKER) (test gvgl=813) 0.03 ng/mL 0.00-0.03 Troponin I (TnI) levels [...] acute neurological disease, and persistent tachyarrhythmia.URINALYSIS W/ [id number] 06: 35:00 Test Item Value Reference Range Comments COLOR (BEAKER) (test aqbo=234) Yellow CLARITY (BEAKER) (test jlzf=460) Clear SPECIFIC GRAVITY UA (BEAKER) (test pfne=597) 1.043 1.001-1.035 PH UA (BEAKER) (test vtoo=908) 6.5 5.0-8.0 PROTEIN UA (BEAKER) (test ajpd=203) 20 mg/dL Negative GLUCOSE UA (BEAKER) (test ssym=487) 1000 mg/dL Negative KETONES UA (BEAKER) (test lrty=526) Negative Negative BILIRUBIN UA (BEAKER) (test ysvh=303) Negative Negative BLOOD UA (BEAKER) (test lycd=517) Trace Negative NITRITE UA (BEAKER) (test ixyw=497) Negative Negative LEUKOCYTE ESTERASE UA (BEAKER) (test xnfd=446) Negative Negative UROBILINOGEN UA (BEAKER) (test ubgl=388) 0.2 mg/dL 0.2-1.0 RBC UA (BEAKER) (test ckcs=312) 1 /HPF WBC UA (BEAKER) (test ctio=559) 3 /HPF BACTERIA (BEAKER) (test tsyo=614) Rare SOURCE(BEAKER) (test rpqt=3237) Urine, Taylor [id number] 06:07:00 Test Item Value Reference Range Comments MAGNESIUM (BEAKER) (test jncj=975) 1.8 mg/dL 1.6-2.6 [id number] 05:32:00 Test Item Value Reference Range Comments MAGNESIUM (BEAKER) (test wpph=203) 2.5 mg/dL 1.6-2.6 COMPREHENSIVE METABOLIC [id number] 05:32:00 Test Item Value Reference Range Comments TOTAL PROTEIN (BEAKER) 5.1 gm/dL 6.0-8.3 (test pmcj=583) ALBUMIN (BEAKER) (test 2.9 g/dL 3.5-5.0 lvsv=1111) ALKALINE PHOSPHATASE 31 U/L 40-150 (BEAKER) (test azrb=800) BILIRUBIN TOTAL (BEAKER) 0.4 mg/dL 0.2-1.2 (test hjta=696) SODIUM (BEAKER) (test 145 meq/L 136-145 nmig=574) POTASSIUM (BEAKER) (test 4.0 meq/L 3.5-5.1 olvn=281) CHLORIDE (BEAKER) (test 110 meq/L 98-107 fsje=485) CO2 (BEAKER) (test 28 meq/L 22-29 wqek=562) BLOOD UREA NITROGEN 14 mg/dL 7-21 (BEAKER) (test lfwh=022) CREATININE (BEAKER) (test 0.71 mg/dL 0.57-1.25 bivm=655) GLUCOSE RANDOM (BEAKER) 187 mg/dL 70-105 (test ejcu=041) CALCIUM (BEAKER) (test 8.1 mg/dL 8.4-10.2 bogo=168) AST (SGOT) (BEAKER) (test 9 U/L 5-34 qgpz=771) ALT (SGPT) (BEAKER) (test 6 U/L 6-55 rxiy=109) EGFR (BEAKER) (test 79 mL/min/1.73 sq m ESTIMATED GFR IS NOT wdkl=0070) ACCURATE CREATININE CLEARANCE IN PREDICTING GLOMERULAR FILTRATION RATE. ESTIMATED GFR IS NOT APPLICABLE FOR DIALYSIS PATIENTS. PROTHROMBIN [id number] 05:10:00 Test Item Value Reference Range Comments PROTIME (BEAKER) (test rsgz=510) 25.1 seconds 11.7-14.7 INR (BEAKER) (test gjad=723) 2.3 <=5.9 RECOMMENDED COUMADIN/WARFARIN INR THERAPY RANGESSTANDARD DOSE: 2.0 - 3.0 Includes: PROPHYLAXIS forvenous thrombosis, systemic embolization; TREATMENT for venous thrombosis and/or pulmonary embolus.HIGH RISK: Target INR is 2.5-3.5 for patients with mechanical heart valves.CBC W/PLT COUNT & AUTO [id number] 05:03:00 Test Item Value Reference Range Comments WHITE BLOOD CELL COUNT (BEAKER) (test hkhh=058) 5.6 K/ L 3.5-10.5 RED BLOOD CELL COUNT (BEAKER) (test wzgi=934) 3.19 M/ L 3.93-5.22 HEMOGLOBIN (BEAKER) (test mvom=084) 10.1 GM/DL 11.2-15.7 HEMATOCRIT (BEAKER) (test iwxs=627) 31.5 % 34.1-44.9 MEAN CORPUSCULAR VOLUME (BEAKER) (test xfih=006) 98.7 fL 79.4-94.8 MEAN CORPUSCULAR HEMOGLOBIN (BEAKER) (test 31.7 pg 25.6-32.2 tnid=184) MEAN CORPUSCULAR HEMOGLOBIN CONC (BEAKER) (test 32.1 GM/DL 32.2-35.5 ddlk=688) RED CELL DISTRIBUTION WIDTH (BEAKER) (test 14.6 % 11.7-14.4 kqfq=948) PLATELET COUNT (BEAKER) (test akjy=932) 141 K/CU MM 150-450 MEAN PLATELET VOLUME (BEAKER) (test lekn=442) 11.6 fL 9.4-12.3 NUCLEATED RED BLOOD CELLS (BEAKER) (test 0 /100 WBC 0-0 qdar=992) NEUTROPHILS RELATIVE PERCENT (BEAKER) (test 71 % xcvq=551) LYMPHOCYTES RELATIVE PERCENT (BEAKER) (test 22 % cwjb=442) MONOCYTES RELATIVE PERCENT (BEAKER) (test 5 % izfv=267) EOSINOPHILS RELATIVE PERCENT (BEAKER) (test 0 % rcnm=712) BASOPHILS RELATIVE PERCENT (BEAKER) (test 0 % okcp=936) NEUTROPHILS ABSOLUTE COUNT (BEAKER) (test 4.00 K/ L 1.56-6.13 aztq=046) LYMPHOCYTES ABSOLUTE COUNT (BEAKER) (test 1.25 K/ L 1.18-3.74 dkru=573) MONOCYTES ABSOLUTE COUNT (BEAKER) (test 0.26 K/ L 0.24-0.36 wjaj=888) EOSINOPHILS ABSOLUTE COUNT (BEAKER) (test 0.02 K/ L 0.04-0.36 ytxn=189) BASOPHILS ABSOLUTE COUNT (BEAKER) (test 0.01 K/ L 0.01-0.08 anix=897) IMMATURE GRANULOCYTES-RELATIVE PERCENT (BEAKER) 1 % 0-1 (test xsgo=5600) [id number] 02:52:00 Test Item Value Reference Range Comments PROCALCITONIN (BEAKER) (test rkrs=8673) 0.41 ng/mL <0.05 SEPSIS RISK (ng/mL)Low: 0.05-0.50Intermediate: 0.51-2.00High: & gt;=2.01LACTIC ACID, VENOUS, WHOLE [id number] 02:06:00 Test Item Value Reference Range Comments LACTATE BLOOD VENOUS (2) 1.3 mmol/L 0.5-2.2 Specimen slightly hemolyzed (BEAKER) (test wfkf=0348) Effective 01/07/2016: Units/Reference Range ChangeNew: 0.5-2.2 mmol/L Previous: 5 -20 mg/dLCOMPREHENSIVE METABOLIC [id number] 02:06:00 Test Item Value Reference Range Comments TOTAL PROTEIN (BEAKER) 5.2 gm/dL 6.0-8.3 (test delx=491) ALBUMIN (BEAKER) (test 3.0 g/dL 3.5-5.0 rkkw=0694) ALKALINE PHOSPHATASE 31 U/L 40-150 (BEAKER) (test mdpn=449) BILIRUBIN TOTAL (BEAKER) 0.4 mg/dL 0.2-1.2 (test wdoh=406) SODIUM (BEAKER) (test 143 meq/L 136-145 jhcg=450) POTASSIUM (BEAKER) (test 2.9 meq/L 3.5-5.1 gkii=683) CHLORIDE (BEAKER) (test 109 meq/L 98-107 rttd=751) CO2 (BEAKER) (test 27 meq/L 22-29 lmxn=636) BLOOD UREA NITROGEN 15 mg/dL 7-21 (BEAKER) (test jodr=488) CREATININE (BEAKER) (test 0.70 mg/dL 0.57-1.25 igfe=822) GLUCOSE RANDOM (BEAKER) 215 mg/dL 70-105 (test zuts=174) CALCIUM (BEAKER) (test 7.9 mg/dL 8.4-10.2 tcxu=077) AST (SGOT) (BEAKER) (test 10 U/L 5-34 shkn=811) ALT (SGPT) (BEAKER) (test 7 U/L 6-55 vdvc=494) EGFR (BEAKER) (test 81 mL/min/1.73 sq m ESTIMATED GFR IS NOT mxhw=0543) ACCURATE CREATININE CLEARANCE IN PREDICTING GLOMERULAR FILTRATION RATE. ESTIMATED GFR IS NOT APPLICABLE FOR DIALYSIS PATIENTS. [id number] 02:04:00 Test Item Value Reference Range Comments LIPASE (BEAKER) (test zurt=150) 730 U/L 8-78 [id number] 02:04:00 Test Item Value Reference Range Comments AMYLASE (BEAKER) (test pjub=572) 226 U/L 25-125 PROTHROMBIN [id number] 01:45:00 Test Item Value Reference Range Comments PROTIME (BEAKER) (test hqkc=493) 23.9 seconds 11.7-14.7 INR (BEAKER) (test eilz=970) 2.1 <=5.9 RECOMMENDED COUMADIN/WARFARIN INR THERAPY RANGESSTANDARD DOSE: 2.0 - 3.0 Includes: PROPHYLAXIS forvenous thrombosis, systemic embolization; TREATMENT for venous thrombosis and/or pulmonary embolus.HIGH RISK: Target INR is 2.5-3.5 for patients with mechanical heart valves.[id number] 01:45:00 Test Item Value Reference Range Comments PARTIAL THROMBOPLASTIN TIME (BEAKER) (test 32.4 seconds 22.5-36.0 uiws=456) CBC W/PLT COUNT & AUTO [id number] 01:38:00 Test Item Value Reference Range Comments WHITE BLOOD CELL COUNT (BEAKER) (test pzdk=821) 4.9 K/ L 3.5-10.5 RED BLOOD CELL COUNT (BEAKER) (test bgtv=799) 3.21 M/ L 3.93-5.22 HEMOGLOBIN (BEAKER) (test izdu=708) 10.2 GM/DL 11.2-15.7 HEMATOCRIT (BEAKER) (test wiyt=232) 31.6 % 34.1-44.9 MEAN CORPUSCULAR VOLUME (BEAKER) (test rcnf=213) 98.4 fL 79.4-94.8 MEAN CORPUSCULAR HEMOGLOBIN (BEAKER) (test 31.8 pg 25.6-32.2 godm=767) MEAN CORPUSCULAR HEMOGLOBIN CONC (BEAKER) (test 32.3 GM/DL 32.2-35.5 adlf=783) RED CELL DISTRIBUTION WIDTH (BEAKER) (test 14.4 % 11.7-14.4 ojib=009) PLATELET COUNT (BEAKER) (test nzkb=794) 137 K/CU MM 150-450 MEAN PLATELET VOLUME (BEAKER) (test toqg=952) 11.9 fL 9.4-12.3 NUCLEATED RED BLOOD CELLS (BEAKER) (test 0 /100 WBC 0-0 pffn=363) NEUTROPHILS RELATIVE PERCENT (BEAKER) (test 76 % xyzb=227) LYMPHOCYTES RELATIVE PERCENT (BEAKER) (test 19 % oorl=037) MONOCYTES RELATIVE PERCENT (BEAKER) (test 4 % gsfk=370) EOSINOPHILS RELATIVE PERCENT (BEAKER) (test 0 % pfyi=872) BASOPHILS RELATIVE PERCENT (BEAKER) (test 0 % hija=338) NEUTROPHILS ABSOLUTE COUNT (BEAKER) (test 3.73 K/ L 1.56-6.13 vsmu=157) LYMPHOCYTES ABSOLUTE COUNT (BEAKER) (test 0.92 K/ L 1.18-3.74 solh=350) MONOCYTES ABSOLUTE COUNT (BEAKER) (test 0.21 K/ L 0.24-0.36 sndm=460) EOSINOPHILS ABSOLUTE COUNT (BEAKER) (test 0.00 K/ L 0.04-0.36 rima=223) BASOPHILS ABSOLUTE COUNT (BEAKER) (test 0.01 K/ L 0.01-0.08 calv=528) IMMATURE GRANULOCYTES-RELATIVE PERCENT (BEAKER) 1 % 0-1 (test gbne=6137)
[2019-04-25 03:45] LABS: Urine Blood 2+ (NEG); Urine Glucose NEGATIVE (NEG); Urine Protein NEGATIVE (NEG); Urine pH 5.5 (5.0-7.0)
[2019-04-25] MEDS ORDERED: HYDROCORTISONE SUC 100 MG INJ ONE (03:51)
[2019-04-25] MEDS ORDERED: WATER FOR INJ,STERILE 0 ML ONE (03:52)
[2019-04-25] MEDS ORDERED: NA CHLORIDE 0.9% 1,000 ML ONE ×2 (03:52→06:07)
[2019-04-25] MEDS ORDERED: ACETAMINOPHEN 325 MG TABLET ONE (03:52)
[2019-04-25] MEDS ORDERED: CEFTRIAXONE/SWI 1gm 1 GM/10 ML SYR ONE (03:52)
[2019-04-25 03:57] LABS: Absolute Lymphocytes (CBC) 0.5 K/uL (0.7-4.9); Basophils % 0.3 % (0-1.3); Hematocrit 39.3 % (36.0-45.0); Lymphocytes % 12.5 % (15.3-44.8); Protime INR 2.76; RBC Red Blood Cell Count 4.19 M/uL (3.86-4.86)
[2019-04-25 04:22] LABS: ALT/SGPT 16 U/L (12-78); AST/SGOT 10 U/L (15-37); Albumin 2.9 g/dL (3.4-5.0); Alkaline Phosphatase 73 U/L (45-117); BUN Blood Urea Nitrogen 23 mg/dL (7-18); Bicarbonate 23 mmol/L (21-32); Bilirubin Direct 0.1 mg/dL (0-0.2); Bilirubin Total 0.6 mg/dL (0.2-1.0); Glucose Level 127 mg/dL (74-106); Lipase 361 U/L (73-393); Magnesium 1.5 mg/dL (1.8-2.4); NT PRO-BNP 474 pg/mL (<450); Potassium 3.1 mmol/L (3.5-5.1); Protein, Total 6.2 g/dL (6.4-8.2); Sodium Level 148 mmol/L (136-145); Troponin (Emerg Dept Use Only) < 0.02 ng/mL (0.0-0.045)
[2019-04-25 04:42] LABS: Platelet Estimate DECR; Urine White Blood Cell Casts OK
[2019-04-25 04:43] LABS: Blood Morphology Comment NOT SEEN (NOT SEEN)
[2019-04-25] MEDS ORDERED: MAGNESIUM SULFATE 1 gm IVPB 1 GM/100 ML BAG IV ONE (05:35)
[2019-04-25] MEDS ORDERED: POTASSIUM 25 MEQ EFFERV TAB ONE (05:35)
--- NOTE | 2019-04-25 05:35 | ER ---
Nurse's Notes [facility] Name: Emelia Payan Age: 78 yrs Sex: Female : 1940 Arrival Date: 04/25/2019 Time: 03:16 Bed 7 Private MD: Diagnosis: Addisonian crisis;Fever, unspecified;Urinary tract infection, site not specified;Acute tubulo-interstitial nephritis;Hypokalemia;Hypomagnesemia;Neutropenia due to infection;Hypotension Presentation: 04/25 03:33 Presenting complaint: EMS states: Called for patient stating waking up at midnight with lp1 chills, fever-like, urinating frequently; Complaint of pain to right lower rib area, body aches; Denies any pain with urination, N/V. Transition of care: patient was not received from another setting of care. Onset of symptoms was April 25, 2019 at 00:00. Risk Assessment: Do you want to hurt yourself or someone else? Patient reports no desire to harm self or others. Initial Sepsis Screen: Does the patient meet any 2 criteria? No. Patient's initial sepsis screen is negative. Does the patient have a suspected source of infection? No. Patient's initial sepsis screen is negative. Care prior to arrival: Medication(s) given: Tylenol, 100 g IV IV initiated. 20 GA, in the left antecubital area. 03:33 Method Of Arrival: EMS: [facility] lp1 03:33 Acuity: EDIS 3 lp1 Historical: - Allergies: 03:37 Cipro; lp1 03:37 Xarelto; lp1 - Home Meds: 03:37 amlodipine 5 mg tab 1 tab once daily [Active]; Creon 36,000-114,000- 180,000 unit Oral lp1 cpDR 1 cap 3 times per day [Active]; Dexilant 60 mg Oral CpDB 1 cap once daily [Active]; fenofibrate 48 mg Oral 1 tab once daily [Active]; glipizide 2.5 mg Oral tr24 one tab M, W, F [Active]; hydrocortisone 10 mg Oral tab 2 tabs twice a day [Active]; levothyroxine 112 mcg tab 1 tab once daily [Active]; liothyronine 5 mcg Oral tab 1 tab once daily [Active]; lorazepam 0.5 mg Oral tab 2 times per day for Anxiety [Active]; losartan 100 mg Oral tab 1 tab once daily [Active]; Omnitrope 5 mg/1.5 mL (3.3 mg/mL) subcutaneous crtg once daily [Active]; sotalol 160 mg Oral tab 1 tab 2 times per day [Active]; Vitamin D3 50,000 units Oral tab twice a day [Active]; warfarin 2.5 mg Oral tab 1 tab once daily [Active]; - PMHx: 03:37 adrenal insuficiency; Anxiety; Atrial Fib; CHF; Diabetes - IDDM; DVT; Hyperlipidemia; lp1 Hypertension; Hypothyroidism; Pancreatitis; - Immunization history:: Adult Immunizations up to date. - Family history:: not pertinent. - Social history:: Smoking status: Patient/guardian denies using tobacco. - Ebola Screening: : No symptoms or risks identified at this time. Screenin:37 Abuse screen: Denies threats or abuse. Denies injuries from another. Nutritional lp1 screening: No deficits noted. Tuberculosis screening: No symptoms or risk factors identified. Fall Risk Total Dickens Fall Scale indicates High Risk Score (45 or more points). Fall prevention measures have been instituted. Side Rails Up X 2 As available patient and family educated on Fall Prevention Program and Strategies. Assessment: 03:30 General: Appears in no apparent distress. Behavior is calm, cooperative, appropriate lp1 for age. Pain: Complains of pain in diaphragm. Neuro: Level of Consciousness is awake, alert, obeys commands, Oriented to person, place, situation. Cardiovascular: Patient's skin is warm and dry. Respiratory: Respiratory effort is even, Respiratory pattern is regular, Breath sounds are clear bilaterally. GI: Abdomen is non-distended. : Reports urinary frequency. EENT: No signs and/or symptoms were reported regarding the EENT system. Derm: Skin is intact, is fragile, is thin, Skin is dry, Skin is normal. Musculoskeletal: No deficits noted. 03:35 Reassessment: Assisted [place] to [facility] [place]. lp1 04:31 Reassessment: Patient states pain to right rib area resolved at this time; Family at lp1 bedside. 05:30 Reassessment: Patient appears in no apparent distress at this time. Patient and/or lp1 family updated on plan of care and expected duration. Pain level reassessed. Patient resting, eyes closed, respirations unlabored; family at bedside. 05:46 Reassessment: Provider at bedside to discuss results and plan of care with patient and lp1 family. Vital Signs: 03:33 BP 133 / 63; Pulse 97; Resp 18; Temp 100.2(O); Pulse Ox 97% on R/A; Weight 76.66 kg; lp1 Height 5 ft. 4 in. (162.56 cm); Pain 3/10; 04:30 BP 97 / 51; Pulse 84; Resp 18; Pulse Ox 96% on R/A; lp1 05:00 BP 95 / 53; Pulse 83; Resp 16; Pulse Ox 96% on R/A; lp1 05:45 BP 101 / 55; Pulse 90; Resp 18; Temp 97.6(O); Pulse Ox 97% on R/A; Pain 0/10; lp1 07:00 BP 107 / 55; Pulse 83; Resp 16; Pulse Ox 96% on R/A; lp1 07:50 BP 106 / 56; Pulse 80; Resp 18 S; Temp 97.9; Pulse Ox 98% on R/A; Pain 0/10; sg 03:33 Body Mass Index 29.01 (76.66 kg, 162.56 cm) lp1 ED Course: 03:16 Patient arrived in ED. ds1 03:16 Jose Elias Marquez MD is Attending Physician. gilberto 03:35 Triage completed. lp1 03:35 Arm band placed on right wrist. lp1 03:38 Salud Sinha RN is Primary Nurse. lp1 03:38 Patient has correct armband on for positive identification. Placed in gown. Bed in low lp1 position. court monitor on. Pulse ox on. NIBP on. 03:45 Maintain EMS IV. Dressing intact. Good blood return noted. Site clean \T\ dry. Gauge \T\ lp 1 site: 20g to L AC. 04:06 XRAY Chest (1 view) In Process Unspecified. EDMS 05:33 Raul Cox DO is Hospitalizing Provider. gilberto 05:47 No provider procedures requiring assistance completed. Patient admitted, IV remains in lp1 place. 07:40 Assisted to bedside commode. sg 07:55 Primary Nurse role handed off by Salud Sinha, RN mb4 Administered Medications: 03:55 Drug: Tylenol 650 mg Route: PO; lp1 04:15 Drug: Solu-CORTEF 100 mg Route: IVP; Site: left antecubital; lp1 05:37 Follow up: Response: No adverse reaction lp1 04:20 Drug: NS 0.9% 1000 ml Route: IV; Rate: 125 ml/hr; Site: left antecubital; lp1 04:20 Drug: Rocephin 1 grams Route: IV; Rate: per protocol; Site: left antecubital; lp1 05:37 Follow up: Response: No adverse reaction; IV Status: Completed infusion; IV Intake: 96qyjj2 05:44 Drug: Potassium Effervescent Tablet 50 mEq Route: PO; lp1 05:44 Drug: Magnesium Sulfate 1 grams Route: IVPB; Infused Over: 1 hrs; Site: left lp1 antecubital; 06:09 Drug: NS 0.9% 1000 ml Route: IV; Rate: 1 bolus; Site: left antecubital; lp1 Intake: 05:37 IV: 10ml; Total: 10ml. lp1 Output: 07:40 Urine: 300ml (Voided); Total: 300ml. wojciech Outcome: 05:34 Decision to Hospitalize by Provider. gilberto 05:47 Condition: stable lp1 05:47 Instructed on the need for admit. 07:48 Admitted to Med/surg accompanied by tech, via stretcher, with chart, Report called to wojciech Denson RN 07:59 Patient left the ED. iw Signatures: Dispatcher [employer] EDMS Cameron Shields RN RN sg Anderson, Corey, MD MD cha Sanford, Demi ds1 Guerita Ray RN RN Salud Sinha RN RN lp1 Natalie Kellogg mb4
--- NOTE | 2019-04-25 05:36 | EDPHYS ---
Physician Documentation [facility] Name: Emelia Payan Age: 78 yrs Sex: Female : 1940 Arrival Date: 04/25/2019 Time: 03:16 Bed 7 Private MD: ED Physician Jose Elias Marquez HPI: 04/25 03:26 This 78 yrs old Female presents to ER via Unassigned with complaints of Flu gilberto Symptoms. 03:26 The patient or guardian reports chest pain that is located primarily in the substernal gilberto area, anterior chest wall. Onset: 3 day(s) ago. fever at midnight. The pain does not radiate. Associated signs and symptoms: Pertinent positives: cough, lightheadedness. 03:27 Onset: The symptoms/episode began/occurred just prior to arrival. The chest pain is gilberto described as a pressure. Severity of pain: At its worst the pain was moderate in the emergency department the pain has improved moderately. Historical: - Allergies: 03:37 Cipro; lp1 03:37 Xarelto; lp1 - Home Meds: 03:37 amlodipine 5 mg tab 1 tab once daily [Active]; Creon 36,000-114,000- 180,000 unit Oral lp1 cpDR 1 cap 3 times per day [Active]; Dexilant 60 mg Oral CpDB 1 cap once daily [Active]; fenofibrate 48 mg Oral 1 tab once daily [Active]; glipizide 2.5 mg Oral tr24 one tab M, W, F [Active]; hydrocortisone 10 mg Oral tab 2 tabs twice a day [Active]; levothyroxine 112 mcg tab 1 tab once daily [Active]; liothyronine 5 mcg Oral tab 1 tab once daily [Active]; lorazepam 0.5 mg Oral tab 2 times per day for Anxiety [Active]; losartan 100 mg Oral tab 1 tab once daily [Active]; Omnitrope 5 mg/1.5 mL (3.3 mg/mL) subcutaneous crtg once daily [Active]; sotalol 160 mg Oral tab 1 tab 2 times per day [Active]; Vitamin D3 50,000 units Oral tab twice a day [Active]; warfarin 2.5 mg Oral tab 1 tab once daily [Active]; - PMHx: 03:37 adrenal insuficiency; Anxiety; Atrial Fib; CHF; Diabetes - IDDM; DVT; Hyperlipidemia; lp1 Hypertension; Hypothyroidism; Pancreatitis; - Immunization history:: Adult Immunizations up to date. - Family history:: not pertinent. - Social history:: Smoking status: Patient/guardian denies using tobacco. - Ebola Screening: : No symptoms or risks identified at this time. ROS: 03:27 Eyes: Negative for injury, pain, redness, and discharge, ENT: Negative for injury, gilberto pain, and discharge, Neck: Negative for injury, pain, and swelling, Respiratory: Negative for shortness of breath, cough, wheezing, and pleuritic chest pain, Abdomen/GI: Negative for abdominal pain, nausea, vomiting, diarrhea, and constipation, Back: Negative for injury and pain, : Negative for injury, bleeding, discharge, and swelling, MS/Extremity: Negative for injury and deformity, Skin: Negative for injury, rash, and discoloration, Neuro: Negative for headache, weakness, numbness, tingling, and seizure, Psych: Negative for depression, anxiety, suicide ideation, homicidal ideation, and hallucinations, Allergy/Immunology: Negative for hives, rash, and allergies, Endocrine: Negative for neck swelling, polydipsia, polyuria, polyphagia, and marked weight changes, Hematologic/Lymphatic: Negative for swollen nodes, abnormal bleeding, and unusual bruising. 03:27 Constitutional: Positive for chills, fatigue, fever, malaise. Exam: 03:27 Constitutional: This is a well developed, well nourished patient who is awake, alert, gilberto and in no acute distress. Head/Face: Normocephalic, atraumatic. Eyes: Pupils equal round and reactive to light, extra-ocular motions intact. Lids and lashes normal. Conjunctiva and sclera are non-icteric and not injected. Cornea within normal limits. Periorbital areas with no swelling, redness, or edema. ENT: Nares patent. No nasal discharge, no septal abnormalities noted. Tympanic membranes are normal and external auditory canals are clear. Oropharynx with no redness, swelling, or masses, exudates, or evidence of obstruction, uvula midline. Mucous membranes moist. Neck: Trachea midline, no thyromegaly or masses palpated, and no cervical lymphadenopathy. Supple, full range of motion without nuchal rigidity, or vertebral point tenderness. No Meningismus. Chest/axilla: Normal chest wall appearance and motion. Nontender with no deformity. No lesions are appreciated. Cardiovascular: Regular rate and rhythm with a normal S1 and S2. No gallops, murmurs, or rubs. Normal PMI, no JVD. No pulse deficits. Respiratory: Lungs have equal breath sounds bilaterally, clear to auscultation and percussion. No rales, rhonchi or wheezes noted. No increased work of breathing, no retractions or nasal flaring. Abdomen/GI: Soft, non-tender, with normal bowel sounds. No distension or tympany. No guarding or rebound. No evidence of tenderness throughout. Back: No spinal tenderness. No costovertebral tenderness. Full range of motion. Skin: Warm, dry with normal turgor. Normal color with no rashes, no lesions, and no evidence of cellulitis. MS/ Extremity: Pulses equal, no cyanosis. Neurovascular intact. Full, normal range of motion. Neuro: Awake and alert, GCS 15, oriented to person, place, time, and situation. Cranial nerves II-XII grossly intact. Motor strength 5/5 in all extremities. Sensory grossly intact. Cerebellar exam normal. Normal gait. Psych: Awake, alert, with orientation to person, place and time. Behavior, mood, and affect are within normal limits. Vital Signs: 03:33 BP 133 / 63; Pulse 97; Resp 18; Temp 100.2(O); Pulse Ox 97% on R/A; Weight 76.66 kg; lp1 Height 5 ft. 4 in. (162.56 cm); Pain 3/10; 04:30 BP 97 / 51; Pulse 84; Resp 18; Pulse Ox 96% on R/A; lp1 05:00 BP 95 / 53; Pulse 83; Resp 16; Pulse Ox 96% on R/A; lp1 05:45 BP 101 / 55; Pulse 90; Resp 18; Temp 97.6(O); Pulse Ox 97% on R/A; Pain 0/10; lp1 07:00 BP 107 / 55; Pulse 83; Resp 16; Pulse Ox 96% on R/A; lp1 07:50 BP 106 / 56; Pulse 80; Resp 18 S; Temp 97.9; Pulse Ox 98% on R/A; Pain 0/10; sg 03:33 Body Mass Index 29.01 (76.66 kg, 162.56 cm) lp1 MDM: 03:16 Patient medically screened. [facility] 03:30 Data reviewed: vital signs, nurses notes, lab test result(s), EKG, radiologic studies. [facility] 04/25 03:25 Order name: Basic Metabolic Panel [facility] 04/25 03:25 Order name: CBC with Diff [facility] 04/25 03:25 Order name: LFT's [facility] 04/25 03:25 Order name: Magnesium [facility] 04/25 03:25 Order name: NT PRO-BNP [facility] 04/25 03:25 Order name: PT-INR; Complete Time: 05:29 [facility] 04/25 03:25 Order name: Troponin (emerg Dept Use Only) [facility] 04/25 03:26 Order name: Flu; Complete Time: 05:29 [facility] 04/25 03:26 Order name: Lipase [facility] 04/25 03:26 Order name: Blood Culture Adult (2) [facility] 04/25 03:26 Order name: Urine Culture [facility] 04/25 03:26 Order name: Procalcitonin; Complete Time: 05:29 [facility] 04/25 03:26 Order name: TSH [facility] 04/25 03:27 Order name: Basic Metabolic Panel [facility] 04/25 03:25 Order name: XRAY Chest (1 view) [facility] 04/25 03:25 Order name: EKG; Complete Time: 03:28 [facility] 04/25 03:25 Order name: Cardiac monitoring; Complete Time: 04:28 [facility] 04/25 03:27 Order name: CBC with Automated Diff; Complete Time: 05:29 [facility] 04/25 03:27 Order name: Liver (Hepatic) Function [facility] 04/25 03:28 Order name: Magnesium [facility] 04/25 03:28 Order name: NT PRO-BNP [facility] 04/25 03:42 Order name: Urine Dipstick--Ancillary (enter results); Complete Time: 05:29 [facility] 04/25 04:43 Order name: CBC Smear Scan; Complete Time: 05:29 [facility] 04/25 03:26 Order name: EKG - Nurse/Tech; Complete Time: 04:28 [facility] 04/25 03:26 Order name: IV Saline Lock; Complete Time: 04:28 [facility] 04/25 03:26 Order name: Labs collected and sent; Complete Time: 04:28 [facility] 04/25 03:26 Order name: O2 Per Protocol; Complete Time: 04:28 [facility] 04/25 03:26 Order name: O2 Sat Monitoring; Complete Time: 04:31 [facility] 04/25 03:26 Order name: Urine Dipstick-Ancillary (obtain specimen); Complete Time: 04:32 [facility] Administered Medications: 03:55 Drug: Tylenol 650 mg Route: PO; lp1 04:15 Drug: Solu-CORTEF 100 mg Route: IVP; Site: left antecubital; lp1 05:37 Follow up: Response: No adverse reaction lp1 04:20 Drug: NS 0.9% 1000 ml Route: IV; Rate: 125 ml/hr; Site: left antecubital; lp1 04:20 Drug: Rocephin 1 grams Route: IV; Rate: per protocol; Site: left antecubital; lp1 05:37 Follow up: Response: No adverse reaction; IV Status: Completed infusion; IV Intake: [id number] 05:44 Drug: Potassium Effervescent Tablet 50 mEq Route: PO; lp1 05:44 Drug: Magnesium Sulfate 1 grams Route: IVPB; Infused Over: 1 hrs; Site: left lp1 antecubital; 06:09 Drug: NS 0.9% 1000 ml Route: IV; Rate: 1 bolus; Site: left antecubital; lp1 Disposition: 04/25/19 05:34 Hospitalization ordered by Raul Cox for Inpatient Admission. Preliminary diagnosis are Addisonian crisis, Fever, unspecified, Urinary tract infection, site not specified, Acute tubulo-interstitial nephritis, Hypokalemia, Hypomagnesemia, Neutropenia due to infection, Hypotension. - Bed requested for Telemetry/MedSurg (Inpatient). - Status is Inpatient Admission. iw - Condition is Fair. - Problem is new. - Symptoms have improved. UTI on Admission? Yes Signatures: Dispatcher [employer] EDMS Uzma Oneal RN RN mw Anderson, Corey, MD MD cha Williams, Irene, RN RN iw Pena, Laura, RN RN lp1 Corrections: (The following items were deleted from the chart) 06:17 05:34 Hospitalization Ordered by Raul Cox DO for Inpatient Admission. Preliminary [facility] diagnosis is Addisonian crisis; Fever, unspecified; Urinary tract infection, site not specified; Acute tubulo-interstitial nephritis; Hypokalemia; Hypomagnesemia; Neutropenia due to infection. Bed requested for Telemetry/MedSurg (Inpatient). Status is Inpatient Admission. Condition is Fair. Problem is new. Symptoms have improved. UTI on Admission? Yes. [facility] 06:46 06:17 04/25/2019 05:34 Hospitalization Ordered by Raul Cox DO for Inpatient mw Admission. Preliminary diagnosis is Addisonian crisis; Fever, unspecified; Urinary tract infection, site not specified; Acute tubulo-interstitial nephritis; Hypokalemia; Hypomagnesemia; Neutropenia due to infection; Hypotension. Bed requested for Telemetry/MedSurg (Inpatient). Status is Inpatient Admission. Condition is Fair. Problem is new. Symptoms have improved. UTI on Admission? Yes. [facility] 07:59 06:46 04/25/2019 05:34 Hospitalization Ordered by Raul Cox DO for Inpatient iw Admission. Preliminary diagnosis is Addisonian crisis; Fever, unspecified; Urinary tract infection, site not specified; Acute tubulo-interstitial nephritis; Hypokalemia; Hypomagnesemia; Neutropenia due to infection; Hypotension. Bed requested for Telemetry/MedSurg (Inpatient). Status is Inpatient Admission. Condition is Fair. Problem is new. Symptoms have improved. UTI on Admission? Yes. mw
--- NOTE | 2019-04-25 06:29 | P.HP ---
Certification for Inpatient With expected LOS: >2 Midnights Practitioner: I am a practitioner with admitting privileges, knowledge of patient current condition, hospital course, and medical plan of care. Services: Services provided to patient in accordance with Admission requirements found in Title 42 Section 412.3 of the Code of Federal Regulations Patient History Date of Service: 04/25/19 Reason for admission: Generalized weakness and body pains History of Present Illness: 78-year-old woman with a history of adrenal insufficiency, history of pituitary tumor status post radiation and resection, hypothyroidism, chronic atrial fibrillation on chronic Coumadin anticoagulation presented to the emergency department with the complaint of generalized body pains, weakness, fever and chills of onset yesterday. She also reports increased urinary frequency and urgency but no dysuria or suprapubic pain. She also reports low back pain. In the ED, the patient noted to have soft blood pressure systolic in the 90s. Low-grade fever recorded. UA suggests the presence of UTI. Patient does not meet criteria for sepsis. Chest x-ray appeared unremarkable with no acute disease. Also noted multiple electrolyte abnormalities including hypokalemia, hypomagnesemia and hypernatremia. She was hydrated with IV normal saline, 1 dose IV Rocephin and a stress dose of IV steroid. She is admitted for further management. Allergies ciprofloxacin [From Cipro] Allergy (Verified 02/11/17 06:42) Unknown rivaroxaban [From Xarelto] Allergy (Verified 02/11/17 06:42) Unknown Home Medications: Amlodipine [Norvasc*] 5 mg PO DAILY 10/06/18 Cholecalciferol (Vitamin D3) [Vitamin D3] 50,000 unit PO SEECOM 10/06/18 Dexlansoprazole [Dexilant] 60 mg PO DAILY 10/06/18 Fenofibrate [Tricor*] 48 mg PO DAILY 10/06/18 Glipizide [Glucotrol Xl] 2.5 mg PO SEECOM 10/06/18 Hydrocortisone [Cortef*] 2 tab PO BID 10/06/18 LORazepam [Ativan*] 0.5 mg PO BID PRN 10/06/18 Levothyroxine [Synthroid*] 112 mcg PO [id number] 10/06/18 Liothyronine [Cytomel*] 5 mcg PO DAILY 10/06/18 Lipase/Protease/Amylase [Aida Dahl 36,000 Units Capsule] 2 tab PO ACHS 10/06/18 Losartan Potassium [Cozaar] 100 mg PO DAILY 10/06/18 Somatropin [Omnitrope] 0.3 mg SQ DAILY 10/06/18 Sotalol HCl [Betapace] 1 tab PO BID 10/06/18 Warfarin Sodium [Coumadin*] 3 mg PO DAILY 5 PM 10/06/18 - Past Medical/Surgical History Diabetic: Yes -: Diabetes mellitus type 2 -: History CVA 2012 -: HTN -: Anxiety -: History of pituitary gland removal -: GERD with history of GI bleed -: Hypothyroidism -: Chronic anti coagulation -: History atrial fibrillation -: Chronic steroids -: Adrenal insufficiency -: Hyperlipidemia -: hysterectomy -: bradley carpal tunnel sx -: L lumpectomy -: brain tumor removed- benign -: pituitary gland removal -: appendectomy Psychosocial/ Personal History: The patient is . She has 5 children. She does not work. - Family History Mother -: Heart disease, Hypertension Notes: of heart attack Father -: Heart disease Notes: of heart attack - Social History Smoking Status: Never smoker Alcohol use: No CD- Drugs: No Caffeine use: Yes Review of Systems Other: General: No unintentional weight loss. Eyes: No eye discharge, Respiratory: No cough, no shortness of breath. CVS: No palpitation, no lightheadedness. GI: No abdominal pain, no nausea no vomit, no constipation, no diarrhea. Genitourinary: No dysuria, no incontinence, no hematuria. Musculoskeletal: No joint swelling, no gait instability. Neurology: No headache, no problem with swallowing. Except last documented, all other systems reviewed and negative. Physical Examination - Physical Exam General: Alert, In no apparent distress, Oriented x3 HEENT: Atraumatic, Normocephalic, PERRLA, Mucous membr. moist/pink Neck: Supple, 2+ carotid pulse no bruit, JVD not distended, No Thyromegaly Respiratory: Clear to auscultation bilaterally, Normal air movement Cardiovascular: No edema, Normal pulses, Regular rate/rhythm, Normal S1 S2, No murmurs Capillary refill: <2 Seconds Gastrointestinal: Normal bowel sounds, Soft and benign, Non-distended, No tenderness Musculoskeletal: No clubbing, No tenderness Integumentary: Other (Bilateral lower extremity venous stasis dermatitis) Neurological: Normal strength at 5/5 x4 extr, Sensation intact, Cranial nerves 3 -12 intact, Normal affect Lymphatics: No axilla or inguinal lymphadenopathy - Studies Laboratory Data (last 24 hrs) 04/25/19 03:45: PT 31.3 H, INR 2.76 04/25/19 03:45: WBC 3.9 L, Hgb 12.9, Hct 39.3, Plt Count 118 L 04/25/19 03:45: Sodium 148 H, Potassium 3.1 L, BUN 23 H, Creatinine 0.83, Glucose 127 H, Magnesium 1.5 L, Total Bilirubin 0.6, AST 10 L, ALT 16, Alkaline Phosphatase 73, Lipase 361 Microbiology Data (last 24 hrs): 04/25/19 03:45 Nasopharnyx Influenza Type A Antigen Screen - Final 04/25/19 03:45 Nasopharnyx Influenza Type B Antigen Screen - Final Imagings Data: Chest x-ray: Increased interstitial marking. No acute changes. Assessment and Plan - Problems (Diagnosis) (1) UTI (urinary tract infection) Onset Date: 01/20/16 Current Visit: No Status: Acute Qualifiers: Urinary tract infection type: site unspecified (2) Weakness generalized Onset Date: 12/30/16 Current Visit: No Status: Acute (3) Adrenal insufficiency Onset Date: 12/06/17 Current Visit: No Status: Chronic (4) Chronic anticoagulation Onset Date: 01/20/16 Current Visit: No Status: Chronic (5) Chronic use of steroids Onset Date: 12/06/17 Current Visit: No Status: Chronic (6) Hypothyroidism Onset Date: 01/20/16 Current Visit: No Status: Chronic Qualifiers: Hypothyroidism type: acquired Qualified Code(s): E03.9 - Hypothyroidism, unspecified (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 IV Rocephin. Follow urine culture Replete electrolytes-potassium and magnesium IV and orally Continue stress dose IV steroid for the next 48 hrs Continue Coumadin and monitor PT and INR. Patient is in hyperthyroid state. Reducing home dose Synthroid into 75 mcg daily. Continue sotalol. PT and OT to evaluate. Discharge Plan: Home Plan to discharge in: 48 Hours - Advance Directives Does patient have a Living Will: Yes Does patient have a Durable POA for Healthcare: Yes - Code Status/Comfort Care Code Status Assessed: Yes Code Status: Full Code Time Spent Managing Pts Care (In Minutes): 70
[2019-04-25] MEDS ORDERED: ONDANSETRON 4 MG/2 ML VIAL IV PRN (06:51)
[2019-04-25] MEDS ORDERED: ACETAMINOPHEN 500 MG TAB PO PRN (06:51)
[2019-04-25] MEDS ORDERED: NA CHLORIDE 0.9% 1,000 ML IV SCH (07:00)
--- NOTE | 2019-04-25 07:43 | EKG ---
Test Date: 2019-04-25 Test Time: 03:37:12 Health And Safety Technician: CHIN MEASUREMENT RESULTS: Intervals: Rate: 97 WI: 108 QRSD: 68 QT: 338 QTc: 429 [place]: P: 44 WI: 108 QRS: 19 T: 38 INTERPRETIVE STATEMENTS: Sinus rhythm with marked sinus arrhythmia with short WI with occasional premature atrial complexes Nonspecific T wave abnormality Abnormal ECG Compared to ECG 10/26/2018 11:55:06 Atrial premature complex(es) now present Short WI interval now present Prolonged QT interval no longer present T-wave abnormality still present Electronically Signed On 04-25-19 07:42:42 CDT by Geovany Metz
[2019-04-25] MEDS ORDERED: NA CHLORIDE 0.9% 1,000 ML with POTASSIUM CL 40 MEQ IV SCH ×2 (08:00)
--- NOTE | 2019-04-25 08:21 | RAD REPORT ---
EXAM DESCRIPTION: RAD - Chest Single View - 04/25/2019 4:09 am CLINICAL HISTORY: COUGH Chest pain. COMPARISON: Chest Single View dated 10/26/2018; Chest Single View dated 10/08/2018; Chest Single View d ated 10/06/2018; Chest Single View dated 09/27/2018 FINDINGS: Portable technique limits examination quality. The lungs are grossly clear. The heart is normal in size. No displaced fractures. IMPRESSION: No acute intrathoracic process suspected.
[2019-04-25] MEDS: HYDROCORTISONE SUC 100 MG INJ IV SCH ×2 (09:00→20:11)
[2019-04-25] MEDS: INSULIN -REGULAR HUMAN 50 UNIT/0.5 ML ML SQ SCH ×4 (09:05→20:10)
[2019-04-25 09:09] VITALS: BMI 29.0
[2019-04-25] MEDS ORDERED: SOTALOL HCL PO SCH (11:48)
[2019-04-25 12:32] LABS: Urine Appearance CLEAR; Urine Bilirubin NEGATIVE (NEG); Urine Blood 1+ (NEG); Urine Color YELLOW; Urine Glucose 3+ (NEG); Urine Protein NEGATIVE (NEG); Urine Specific Gravity 1.025 (1.005-1.030)
[2019-04-25 12:33] LABS: Urine Microscopic Reflex ORDER UMIC
[2019-04-25 12:39] LABS: Urine Bacteria <20 /HPF (<20)
--- NOTE | 2019-04-25 12:39 | PN ---
Date of Progress Note: 04/25/2019 Subjective: Patient is seen and examined. Chart reviewed and case discussed with RN. Patient doing well, otherwise states she feels better. Medications: List reviewed. Code Status: Full code. Physical Examination: Vital Signs: Temperature 97.9, heart rate 80, blood pressure 106/56, respirations 18, O2 98% on room air. General: Awake, alert and oriented x3. Elderly female, not in any acute distress. CV: S1, S2. Regular rate and rhythm. Peripheral pulses present. Respiratory: Moving air well bilaterally. No wheezing or stridor. No use of accessory muscles. Gastrointestinal: Abdomen is soft, nontender, nondistended. Positive bowel sounds. No guarding or rigidity. Extremities: No clubbing, cyanosis, or edema. No calf tenderness. Neuro: Cranial nerves 2 through 12 intact grossly. Speech is normal. Laboratory Data: Sodium 148, potassium 3.1, chloride 114, CO2 of 23, BUN 23, creatinine 0.83, glucose 127, calcium 7.9, magnesium 1.5. Troponin less than 0.02, procalcitonin 0.4. TSH 0.01. WBC 3.9, H and H 12.9 and 39.3, platelets 118. Blood cultures and urine culture pending. Influenza screen is negative. Chest x-ray is negative for any acute intrathoracic process. Assessment: 1. Acute cystitis with hematuria. We will continue with IV antibiotics and follow up on urine culture improving. 2. Generalized weakness. We will obtain physical therapy consultation and ambulate with assist. The patient states she is able to walk with a walker. 3. Acute adrenal crisis. Patient is currently hypotensive. We will continue with stress dose steroids for total of 48 hours, IVFs. 4. Atrial fibrillation, chronic. We will continue with rate control. The patient is on oral anticoagulation. We will resume home medications. 5. Chronic use of steroids secondary to adrenal insufficiency. 6. Hypothyroidism. TSH was 0.01. Synthroid dose has been adjusted. 7. Panhypopituitarism. 8. Hypokalemia. We will replace and monitor. 9. Hypomagnesemia. We will replace and continue to monitor. 10. History of cerebrovascular accident without residual deficit. 11. Generalized anxiety disorder. 12. History of gastroesophageal reflux disease without esophagitis. 13. Mixed hyperlipidemia. Plan: DVT prophylaxis. Patient is already on oral anticoagulation. Follow up with urine culture. Likely discharge in next 24 to 48 hours. Patient needs continued inpatient monitoring due to adrenal crisis, electrolyte disturbances and hypotension. /AZIZA Voice ID: [id number] Report ID: [id number] MTDD
[2019-04-25 12:40] LABS: Urine Culture Reflex Order NOT NEEDED
[2019-04-25 13:00] LABS: Potassium 4.4 mmol/L (3.5-5.1)
[2019-04-25] MEDS: NA CHLORIDE 0.9% 1,000 ML with POTASSIUM CL 40 MEQ IV SCH ×2 (16:21)
[2019-04-25] MEDS ORDERED: WARFARIN SODIUM 3 MG TAB PO SCH (17:00)
[2019-04-25] MEDS: SOTALOL HCL 80 MG TAB PO SCH (20:09)
[2019-04-25] MEDS: BUSPIRONE HCL 5 MG TABLET PO SCH (20:09)
[2019-04-25] MEDS: clonazePAM 0.5 MG TAB PO SCH (20:09)
[2019-04-25] MEDS ORDERED: CEFTRIAXONE/SWI 1gm 1 GM/10 ML SYR IV SCH (21:00)
[2019-04-26] MEDS: NA CHLORIDE 0.9% 1,000 ML with POTASSIUM CL 40 MEQ IV SCH ×4 (04:36→05:49)
[2019-04-26] MEDS ORDERED: LIOTHYRONINE SOD 5 MCG TAB PO SCH (06:30)
[2019-04-26] MEDS ORDERED: PANTOPRAZOLE 40MG TABLET PO SCH (06:30)
[2019-04-26] MEDS ORDERED: LEVOTHYROXINE SOD 0.1 MG TAB PO SCH (06:30)
[2019-04-26] MEDS ORDERED: LIOTHYRONINE SOD 25 MCG TAB PO SCH ×2 (06:30→09:00)
[2019-04-26 07:03] LABS: ALT/SGPT 10 U/L (12-78); AST/SGOT 9 U/L (15-37); Albumin 2.4 g/dL (3.4-5.0); Alkaline Phosphatase 54 U/L (45-117); BUN Blood Urea Nitrogen 16 mg/dL (7-18); Bicarbonate 24 mmol/L (21-32); Bilirubin Total 0.3 mg/dL (0.2-1.0); Glucose Level 159 mg/dL (74-106); Magnesium 1.9 mg/dL (1.8-2.4); Potassium 4.4 mmol/L (3.5-5.1); Protein, Total 5.3 g/dL (6.4-8.2); Sodium Level 146 mmol/L (136-145)
[2019-04-26] MEDS: INSULIN -REGULAR HUMAN 50 UNIT/0.5 ML ML SQ SCH (07:30)
[2019-04-26 07:54] LABS: Protime INR 2.29
[2019-04-26] MEDS ORDERED: FENOFIBRATE 48 MG TAB PO SCH (09:00)
[2019-04-26] MEDS: clonazePAM 0.5 MG TAB PO SCH (09:00)
[2019-04-26] MEDS ORDERED: SOMATROPIN SQ SCH (09:00)
[2019-04-26] MEDS: SOTALOL HCL 80 MG TAB PO SCH (09:00)
[2019-04-26] MEDS: HYDROCORTISONE SUC 100 MG INJ IV SCH (09:00)
[2019-04-26] MEDS: BUSPIRONE HCL 5 MG TABLET PO SCH (09:00)
[2019-04-26 09:08] VITALS: BP 146/71; TEMP 96.9
[2019-04-26 09:52] VITALS: O2SAT 99
--- NOTE | 2019-04-27 04:08 | DS ---
Date of Discharge: 04/26/2019 Admitting Diagnoses: 1.Acute cystitis with hematuria. 2.Generalized weakness. 3.Acute adrenal crisis, on chronic anticoagulation. 4.Chronic use of steroids. 5.Hypothyroidism. 6.Hyponatremia. 7.Panhypopituitarism. 8.Hypokalemia. 9.Hypomagnesemia. 10.Chronic atrial fibrillation. Discharge Diagnoses: 1.Acute adrenal crisis with hypotension and hyponatremia, improved. 2.Acute cystitis with hematuria secondary to gram-negative rods. 3.Generalized weakness. 4.Adrenal insufficiency. 5.Panhypopituitarism. 6.Atrial fibrillation, chronic. 7.Chronic use of steroids secondary to adrenal insufficiency. 8.Hypothyroidism. 9.Hypokalemia. 10.Hypomagnesemia. 11.History of cerebrovascular accident without residual deficit. 12.Generalized anxiety disorder. 13.History of gastroesophageal reflux disease without esophagitis. 14.Mixed hyperlipidemia. Hospital Course: Patient is an 78-year-old female with past medical history of adrenal insufficiency , hypothyroidism, chronic atrial fibrillation on Coumadin, comes in with generalized body pains, weak ness. Patient was found to have UTI and was in adrenal crisis. Patient was hyponatremic, had hypoma gnesemia and hypokalemia. She was started on IV fluid boluses and then started on maintenance IV flu ids. Her UTI was positive and she was started on IV antibiotics for her UTI. Patient's condition im proved. She was responding well to fluids. Sodium level came down to 146. She was then doing magdy r. Her blood pressure was improved. She was able to ambulate with assist. Her urine culture grew o ut gram-negative rods. She has no history of multiresistant E coli in the past. Patient was asympto matic at this point, therefore she was discharged home in a stable condition. Medications: As per medication reconciliation list. Followup: Follow up with primary care physician in 2-3 days. Return to ER for worsening condition. Diet: Diabetic. Activity: Fall precautions. Ambulate with assist. Patient uses a walker. Physical Examination: General: Awake, alert, oriented x3. No acute distress. CV: S1-S2. Respiratory: Moving air well bilaterally. Abdomen: Abdomen is soft, nontender, nondistended. Positive bowel sounds. Extremities: No clubbing, cyanosis, or edema. Neurologic: Nonfocal. SA/MODL Voice ID: [id number] Report ID: [id number]
== END 2019-04-26 11:00 | disposition home or self-care (01) ==
LOC: ER 03:13 → ERHOLD 06:54 → INTOOBSV 06:54 → 4TH 07:49
PROVIDERS: ADMIT Internal Medicine; ATTEND Family Medicine
DX: E27.2 Addisonian crisis (principal); N30.01 Acute cystitis with hematuria; B96.89 Other specified bacterial agents as the cause of diseases classified elsewhere; E03.9 Hypothyroidism, unspecified; E23.0 Hypopituitarism; E87.6 Hypokalemia; E83.42 Hypomagnesemia; I48.2 Chronic atrial fibrillation; E11.9 Type 2 diabetes mellitus without complications; E78.2 Mixed hyperlipidemia; F41.1 Generalized anxiety disorder; I10 Essential (primary) hypertension; K21.9 Gastro-esophageal reflux disease without esophagitis; I95.9 Hypotension, unspecified; E87.1 Hypo-osmolality and hyponatremia; Z86.73 Personal history of transient ischemic attack (TIA), and cerebral infarction without residual deficits; Z79.01 Long term (current) use of anticoagulants; Z79.52 Long term (current) use of systemic steroids; Z88.1 Allergy status to other antibiotic agents; Z88.8 Allergy status to other drugs, medicaments and biological substances
CPT/HCPCS: 36415; 71045; 80048; 80053; 80076; 81003; 81015; 82962; 83690; 83735; 83880; 84100; 84132; 84145; 84439; 84443; 84484; 85025; 85610; 87040; 87077; 87086; 87088; 87186; 87205; 87804; 93005; 94760; 96365; 96375; 97116; 97161; 99285; G0378; J0696; J1720; J3475; J7030

== ENCOUNTER 2019-04-27 19:10 | Inpatient (IN) | payer OTHER ==
--- OUTSIDE RECORDS SUMMARY | 2019-04-27 19:13 | XMS REPORT | Clinical Summary ---
:1940 Author Organization [facility] Address [address] [place] [address] Care Team Providers Name Role Phone Dany [...] tract infection without hematuria, site unspecified after 04/26/2018 Family History Medical History Relation Name Comments [...] Taken Blood Pressure 134/63 11/09/2018 4:00 PM [employer] Pulse 70 11/09/2018 4:00 PM [employer] Temperature 37.3 C (99.1 F) 11/09/2018 4:00 PM [employer] Respiratory Rate 19 11/09/2018 4:00 PM [employer] Oxygen Saturation 99% 11/09/2018 4:00 PM [employer] Inhaled Oxygen Concentration - - Weight 74.8 kg (165 lb) 11/09/2018 11:48 AM [employer] Height - - Body Mass Index 28.32 11/09/2018 11:48 AM [employer] Plan of Treatment Not on file Procedures Procedure Name Priority Date/Time Associated Comments Diagnosis URINALYSIS W/ STAT 11/09/2018 2:09 Results for this MICROSCOPIC PM [employer] procedure are in the results section. CBC W/PLT COUNT & STAT 11/09/2018 12:39 Results for this AUTO DIFFERENTIAL PM [employer] procedure are in the results section. PT/APTT STAT 11/09/2018 12:39 Results for this PM [employer] procedure are in the results section. LIPASE STAT 11/09/2018 12:39 Results for this PM [employer] procedure are in the results section. HEPATIC FUNCTION STAT 11/09/2018 12:39 Results for this PANEL PM [employer] procedure are in the results section. BASIC METABOLIC PANEL STAT 11/09/2018 12:39 Results for this (7) PM [employer] procedure are in the results section. CBC W/PLT COUNT & STAT 11/09/2018 12:39 Results for this AUTO DIFFERENTIAL PM [employer] procedure are in the results section. after 04/26/2018 Results Urinalysis w/Microscopic (11/09/2018 2:09 PM [employer]) Color, UA Yellow [facility] Clarity, UA Hazy [facility] Specific Valders, UA 1.019 1.001 - 1.035 [facility] pH, UA 6.0 5.0 - 8.0 [facility] Protein, UA Negative Negative [facility] Glucose, UA Negative Negative [facility] Ketones, UA Negative Negative [facility] Bilirubin, UA Negative Negative [facility] Blood, UA Negative Negative [facility] Nitrite, UA Negative Negative [facility] Leukocytes, UA Large (A) Negative [facility] Urobilinogen, UA 0.2 0.2 - 1.0 mg/dL [facility] RBC, UA 9 /HPF [facility] WBC, UA 17 /HPF [facility] Mucus Rare [facility] Squam Epithel, UA 11 /HPF [facility] Amorphous Crystals Rare [facility] Specimen Source Urine, Voided [facility] Specimen Urine Performing Organization Address City/[facility] Phone Number [facility] [address] [place] [id number] CENTER PT/aPTT (11/09/2018 12:39 PM [employer]) Protime 19.5 (H) 11.7 - 14.7 seconds [facility] INR 1.6 <=5.9 [facility] PTT 30.3 22.5 - 36.0 seconds [facility] Specimen Blood Narrative Performed At RECOMMENDED COUMADIN/WARFARIN INR THERAPY [facility] RANGES STANDARD DOSE: 2.0 - 3.0 Includes: PROPHYLAXIS for venous thrombosis, systemic embolization; TREATMENT for venous thrombosis and/or pulmonary embolus. HIGH RISK: Target INR is 2.5-3.5 for patients with mechanical heart valves. Performing Organization Address City/[facility] Phone Number [facility] [address] [place] [address] CENTER CBC with platelet count + automated diff (11/09/2018 12:39 PM [employer]) WBC 5.6 3.5 - 10.5 K/L [facility] RBC 3.83 (L) 3.93 - 5.22 M/L [facility] Hemoglobin 12.1 11.2 - 15.7 GM/DL [facility] Hematocrit 36.1 34.1 - 44.9 % [facility] MCV 94.3 79.4 - 94.8 fL [facility] MCH 31.6 25.6 - 32.2 pg [facility] MCHC 33.5 32.2 - 35.5 GM/DL [facility] RDW 14.8 (H) 11.7 - 14.4 % [facility] Platelets 139 (L) 150 - 450 K/CU MM [facility] MPV 11.5 9.4 - 12.3 fL [facility] nRBC 0 0 - 0 /100 WBC [facility] % Neutros 71 % [facility] % Lymphs 22 % [facility] % Monos 5 % [facility] % Eos 1 % [facility] % Baso 0 % [facility] # Neutros 4.01 1.56 - 6.13 K/L [facility] # Lymphs 1.25 1.18 - 3.74 K/L [facility] # Monos 0.29 0.24 - 0.36 K/L [facility] # Eos 0.05 0.04 - 0.36 K/L [facility] # Baso 0.02 0.01 - 0.08 K/L [facility] Immature Granulocytes-Relative 0 0 - 1 % [facility] Specimen Blood Performing Organization Address City/[facility]/Zipcode Phone Number [address] [address] [phone] [place] Lipase (11/09/2018 12:39 PM [employer]) Lipase 45 8 - 78 U/L [facility] Specimen Blood Performing Organization Address City/[facility] Phone Number [address] [phone] [place] Hepatic function panel (11/09/2018 12:39 PM [employer]) Protein, Total 5.9 (L) 6.0 - 8.3 gm/dL [facility] Albumin 3.6 3.5 - 5.0 g/dL [facility] Total Bilirubin 0.6 0.2 - 1.2 mg/dL [facility] Bilirubin, Direct 0.2 0.1 - 0.5 mg/dL [facility] Alkaline Phosphatase 48 40 - 150 U/L [facility] AST 18 5 - 34 U/L [facility] ALT 14 6 - 55 U/L [facility] Specimen Blood Performing Organization Address City/[facility] Phone Number [address] [phone] [place] Basic Metabolic Panel (11/09/2018 12:39 PM [employer]) Sodium 143 136 - 145 meq/L [facility] Potassium 3.1 (L) 3.5 - 5.1 meq/L [facility] Chloride 110 (H) 98 - 107 meq/L [facility] CO2 24 22 - 29 meq/L [facility] BUN 24 (H) 7 - 21 mg/dL [facility] Creatinine 0.69 0.57 - 1.25 mg/dL [facility] Glucose 98 70 - 105 mg/dL [facility] Calcium 9.0 8.4 - 10.2 mg/dL [facility] EGFR 82Comment: ESTIMATED GFR IS mL/min/1.73 sq m [facility] NOT ACCURATE [facility] CLEARANCE IN PREDICTING GLOMERULAR FILTRATION RATE. ESTIMATED GFR IS NOT APPLICABLE FOR DIALYSIS PATIENTS. Specimen Blood Performing Organization Address City/State/Zipcode Phone Number [facility] [address] [place] [address] [phone] CENTER after 04/26/2018 Insurance Payer Benefit Plan / Group Subscriber ID Type Phone Address MEDICARE MEDICARE A B xxxxxxxxxxx Medicare AETNA - MGD CARE AETNA INDEMNITY NON CONTR xxxxxxxxxx [place] ([place]) [place] [address] Advance Directives For more information, please contact:[facility] [place], [place] [phone] Code Status Date Activated Date Inactivated Comments Full Code 01/14/2018 12:36 AM 01/18/2018 6:55 PM This code status was determined by: Patient
--- OUTSIDE RECORDS SUMMARY | 2019-04-27 19:15 | XMS REPORT ---
:1940 [facility] Sa[place] [address] [place] [id number] Care Team Providers Name Role Phone YOAV [...] Value Reference Range Comments COLOR (BEAKER) (test pvwe=732) Yellow CLARITY (BEAKER) (test mghs=404) Hazy SPECIFIC GRAVITY UA (BEAKER) (test cgru=271) 1.019 1.001-1.035 PH UA (BEAKER) (test hjwa=472) 6.0 5.0-8.0 PROTEIN UA (BEAKER) (test akxi=955) Negative Negative GLUCOSE UA (BEAKER) (test ndmo=331) Negative Negative KETONES UA (BEAKER) (test rqlv=385) Negative Negative BILIRUBIN UA (BEAKER) (test zyzc=136) Negative Negative BLOOD UA (BEAKER) (test mmft=037) Negative Negative NITRITE UA (BEAKER) (test pvoi=819) Negative Negative LEUKOCYTE ESTERASE UA (BEAKER) (test ldth=843) Large Negative UROBILINOGEN UA (BEAKER) (test vpow=314) 0.2 mg/dL 0.2-1.0 RBC UA (BEAKER) (test zckn=971) 9 /HPF WBC UA (BEAKER) (test diei=996) 17 /HPF MUCUS (BEAKER) (test xpbg=3932) Rare SQUAMOUS EPITHELIAL (BEAKER) (test fhet=994) 11 /HPF AMORPHOUS CRYSTALS (BEAKER) (test opnr=8486) Rare SOURCE(BEAKER) (test cfle=6693) Urine, Voided [id number] 13:11:00 Test Item Value Reference Range Comments LIPASE (BEAKER) (test kwmb=124) 45 U/L 8-78 BASIC METABOLIC [id number] 13:11:00 Test Item Value Reference Range Comments SODIUM (BEAKER) (test 143 meq/L 136-145 gyli=007) POTASSIUM (BEAKER) (test 3.1 meq/L 3.5-5.1 yquk=186) CHLORIDE (BEAKER) (test 110 meq/L 98-107 hqbd=394) CO2 (BEAKER) (test 24 meq/L 22-29 nqym=594) BLOOD UREA NITROGEN 24 mg/dL 7-21 (BEAKER) (test syhh=074) CREATININE (BEAKER) (test 0.69 mg/dL 0.57-1.25 ctiq=579) GLUCOSE RANDOM (BEAKER) 98 mg/dL 70-105 (test uubr=289) CALCIUM (BEAKER) (test 9.0 mg/dL 8.4-10.2 lept=230) EGFR (BEAKER) (test 82 mL/min/1.73 sq m ESTIMATED GFR IS NOT ggyl=3255) ACCURATE CREATININE CLEARANCE IN PREDICTING GLOMERULAR FILTRATION RATE. ESTIMATED GFR IS NOT APPLICABLE FOR DIALYSIS PATIENTS. HEPATIC FUNCTION [id number] 13:11:00 Test Item Value Reference Range Comments TOTAL PROTEIN (BEAKER) (test sncb=089) 5.9 gm/dL 6.0-8.3 ALBUMIN (BEAKER) (test jatt=5060) 3.6 g/dL 3.5-5.0 BILIRUBIN TOTAL (BEAKER) (test xezc=679) 0.6 mg/dL 0.2-1.2 BILIRUBIN DIRECT (BEAKER) (test nlur=875) 0.2 mg/dL 0.1-0.5 ALKALINE PHOSPHATASE (BEAKER) (test uzou=741) 48 U/L 40-150 AST (SGOT) (BEAKER) (test onwl=194) 18 U/L 5-34 ALT (SGPT) (BEAKER) (test gxwk=712) 14 U/L 6-55 [id number] 13:02:00 Test Item Value Reference Range Comments PROTIME (BEAKER) (test lsbl=620) 19.5 seconds 11.7-14.7 INR (BEAKER) (test ottr=772) 1.6 <=5.9 PARTIAL THROMBOPLASTIN TIME (BEAKER) (test 30.3 seconds 22.5-36.0 mcxv=354) RECOMMENDED COUMADIN/WARFARIN INR THERAPY RANGESSTANDARD DOSE: 2.0 - 3.0 Includes: PROPHYLAXIS forvenous thrombosis, systemic embolization; TREATMENT for venous thrombosis and/or pulmonary embolus.HIGH RISK: Target INR is 2.5-3.5 for patients with mechanical heart valves.CBC W/PLT COUNT & AUTO [id number] 12:56:00 Test Item Value Reference Range Comments WHITE BLOOD CELL COUNT (BEAKER) (test gkmp=846) 5.6 K/ L 3.5-10.5 RED BLOOD CELL COUNT (BEAKER) (test zcoc=023) 3.83 M/ L 3.93-5.22 HEMOGLOBIN (BEAKER) (test xhox=640) 12.1 GM/DL 11.2-15.7 HEMATOCRIT (BEAKER) (test ctev=236) 36.1 % 34.1-44.9 MEAN CORPUSCULAR VOLUME (BEAKER) (test uptv=954) 94.3 fL 79.4-94.8 MEAN CORPUSCULAR HEMOGLOBIN (BEAKER) (test 31.6 pg 25.6-32.2 givx=209) MEAN CORPUSCULAR HEMOGLOBIN CONC (BEAKER) (test 33.5 GM/DL 32.2-35.5 qiuu=979) RED CELL DISTRIBUTION WIDTH (BEAKER) (test 14.8 % 11.7-14.4 zowp=444) PLATELET COUNT (BEAKER) (test lrwh=577) 139 K/CU MM 150-450 MEAN PLATELET VOLUME (BEAKER) (test uwkr=745) 11.5 fL 9.4-12.3 NUCLEATED RED BLOOD CELLS (BEAKER) (test 0 /100 WBC 0-0 mfmc=165) NEUTROPHILS RELATIVE PERCENT (BEAKER) (test 71 % thvu=972) LYMPHOCYTES RELATIVE PERCENT (BEAKER) (test 22 % bmmh=114) MONOCYTES RELATIVE PERCENT (BEAKER) (test 5 % vwbm=411) EOSINOPHILS RELATIVE PERCENT (BEAKER) (test 1 % pyof=710) BASOPHILS RELATIVE PERCENT (BEAKER) (test 0 % dfqm=940) NEUTROPHILS ABSOLUTE COUNT (BEAKER) (test 4.01 K/ L 1.56-6.13 wije=702) LYMPHOCYTES ABSOLUTE COUNT (BEAKER) (test 1.25 K/ L 1.18-3.74 ndow=488) MONOCYTES ABSOLUTE COUNT (BEAKER) (test 0.29 K/ L 0.24-0.36 tmkh=543) EOSINOPHILS ABSOLUTE COUNT (BEAKER) (test 0.05 K/ L 0.04-0.36 yjau=059) BASOPHILS ABSOLUTE COUNT (BEAKER) (test 0.02 K/ L 0.01-0.08 gwnk=107) IMMATURE GRANULOCYTES-RELATIVE PERCENT (BEAKER) 0 % 0-1 (test wdbx=6186) TISSUE [id number] 13:06:00Surgical Pathology Report Case: [id number] Authorizing Provider: Maciej Hayes Collected: 03/14/2018 1115 Ordering Location: [facility] Endoscopy Received: 03/14/2018 1351 Services Pathologist: Mara Barboza MD Specimens: A) - Polyp, Duodenum B) - Stomach, Antrum, bx C) - Biopsy, Gastric, gastric body D) - Biopsy, Esophagus, random THIS ADDENDUM IS ISSUED TO REPORT THE RESULT OF IMMUNOHISTOCHEMICAL STUDY FOR HELICOBACTER PYLORI OM SPECIMEN B: - NEGATIVE CPT CODE: [id number] electronically signed by Mara Barboza MD on [...] MALIGNANCY SEEN Signing Pathologist Direct Phone Line: [phone]. Polyp, duodenum. B. Stomach antrum. [...] incorporatedin the diagnostic report above:AMBER X 2POCT-GLUCOSE [id number] 12:41 :00 Test Item Value Reference Range Comments POC-GLUCOSE METER (BEAKER) 75 mg/dL 70-110 TESTED AT [facility] [address] [facility] (test hbnc=0681) [facility] [address] BLOOD [id number] 06:00:00 Test Item Value Reference Range Comments CULTURE (BEAKER) (test cgur=5028) No growth in 5 days BLOOD [id number] 06:00:00 Test Item Value Reference Range Comments CULTURE (BEAKER) (test jqhx=9517) No growth in 5 days POCT-GLUCOSE [id number] 12:32:00 Test Item Value Reference Range Comments POC-GLUCOSE METER (BEAKER) 217 mg/dL 70-110 TESTED AT [facility] [address] [facility] (test fstl=8308) [facility] [address] POCT-GLUCOSE [id number] 08:36:00 Test Item Value Reference Range Comments POC-GLUCOSE METER (BEAKER) 92 mg/dL 70-110 TESTED AT [facility] [address] [facility] (test oxks=6589) [facility] [address] COMPREHENSIVE METABOLIC [id number] 04:59:00 Test Item Value Reference Range Comments TOTAL PROTEIN (BEAKER) 5.2 gm/dL 6.0-8.3 (test zivv=925) ALBUMIN (BEAKER) (test 3.0 g/dL 3.5-5.0 byra=0165) ALKALINE PHOSPHATASE 39 U/L 40-150 (BEAKER) (test erbz=955) BILIRUBIN TOTAL (BEAKER) 0.4 mg/dL 0.2-1.2 (test dfdf=434) SODIUM (BEAKER) (test 145 meq/L 136-145 cifq=349) POTASSIUM (BEAKER) (test 3.6 meq/L 3.5-5.1 lbcq=044) CHLORIDE (BEAKER) (test 109 meq/L 98-107 jfyf=131) CO2 (BEAKER) (test 28 meq/L 22-29 cjpn=790) BLOOD UREA NITROGEN 8 mg/dL 7-21 (BEAKER) (test ehbw=764) CREATININE (BEAKER) (test 0.70 mg/dL 0.57-1.25 hjtq=981) GLUCOSE RANDOM (BEAKER) 107 mg/dL 70-105 (test srag=050) CALCIUM (BEAKER) (test 8.4 mg/dL 8.4-10.2 ylpl=128) AST (SGOT) (BEAKER) (test 9 U/L 5-34 iexr=227) ALT (SGPT) (BEAKER) (test < U/L 6-55 kkxo=829) EGFR (BEAKER) (test 81 mL/min/1.73 sq m ESTIMATED GFR IS NOT kxgl=5712) ACCURATE CREATININE CLEARANCE IN PREDICTING GLOMERULAR FILTRATION RATE. ESTIMATED GFR IS NOT APPLICABLE FOR DIALYSIS PATIENTS. [id number] 04:50:00 Test Item Value Reference Range Comments MAGNESIUM (BEAKER) (test mlwx=544) 1.7 mg/dL 1.6-2.6 PROTHROMBIN [id number] 04:35:00 Test Item Value Reference Range Comments PROTIME (BEAKER) (test vzuc=846) 23.7 seconds 11.7-14.7 INR (BEAKER) (test ssxt=124) 2.1 <=5.9 RECOMMENDED COUMADIN/WARFARIN INR THERAPY RANGESSTANDARD DOSE: 2.0 - 3.0 Includes: PROPHYLAXIS forvenous thrombosis, systemic embolization; TREATMENT for venous thrombosis and/or pulmonary embolus.HIGH RISK: Target INR is 2.5-3.5 for patients with mechanical heart valves.CBC W/PLT COUNT & AUTO [id number] 04:24:00 Test Item Value Reference Range Comments WHITE BLOOD CELL COUNT (BEAKER) (test ebpq=792) 4.8 K/ L 3.5-10.5 RED BLOOD CELL COUNT (BEAKER) (test haum=443) 3.28 M/ L 3.93-5.22 HEMOGLOBIN (BEAKER) (test ehjs=563) 10.4 GM/DL 11.2-15.7 HEMATOCRIT (BEAKER) (test erem=809) 32.7 % 34.1-44.9 MEAN CORPUSCULAR VOLUME (BEAKER) (test ayat=823) 99.7 fL 79.4-94.8 MEAN CORPUSCULAR HEMOGLOBIN (BEAKER) (test 31.7 pg 25.6-32.2 rbzy=753) MEAN CORPUSCULAR HEMOGLOBIN CONC (BEAKER) (test 31.8 GM/DL 32.2-35.5 hlzq=575) RED CELL DISTRIBUTION WIDTH (BEAKER) (test 14.7 % 11.7-14.4 tjfy=711) PLATELET COUNT (BEAKER) (test rfym=829) 141 K/CU MM 150-450 MEAN PLATELET VOLUME (BEAKER) (test gauk=441) 11.2 fL 9.4-12.3 NUCLEATED RED BLOOD CELLS (BEAKER) (test 0 /100 WBC 0-0 uycb=384) NEUTROPHILS RELATIVE PERCENT (BEAKER) (test 67 % jgvv=752) LYMPHOCYTES RELATIVE PERCENT (BEAKER) (test 26 % ypje=243) MONOCYTES RELATIVE PERCENT (BEAKER) (test 5 % qytg=880) EOSINOPHILS RELATIVE PERCENT (BEAKER) (test 1 % vzhq=982) BASOPHILS RELATIVE PERCENT (BEAKER) (test 0 % teez=905) NEUTROPHILS ABSOLUTE COUNT (BEAKER) (test 3.21 K/ L 1.56-6.13 pxgc=264) LYMPHOCYTES ABSOLUTE COUNT (BEAKER) (test 1.24 K/ L 1.18-3.74 cloj=194) MONOCYTES ABSOLUTE COUNT (BEAKER) (test 0.23 K/ L 0.24-0.36 tpem=124) EOSINOPHILS ABSOLUTE COUNT (BEAKER) (test 0.06 K/ L 0.04-0.36 temg=014) BASOPHILS ABSOLUTE COUNT (BEAKER) (test 0.02 K/ L 0.01-0.08 xeeu=120) IMMATURE GRANULOCYTES-RELATIVE PERCENT (BEAKER) 1 % 0-1 (test vqho=8455) POCT-GLUCOSE [id number] 22:13:00 Test Item Value Reference Range Comments POC-GLUCOSE METER (BEAKER) 194 mg/dL 70-110 TESTED AT [address] (test uehu=3696) [place] [address] POCT-GLUCOSE [id number] 18:14:00 Test Item Value Reference Range Comments POC-GLUCOSE METER (BEAKER) 195 mg/dL 70-110 TESTED AT [address] (test itqq=7173) [place] [id number] POCT-GLUCOSE [id number] 12:20:00 Test Item Value Reference Range Comments POC-GLUCOSE METER (BEAKER) 224 mg/dL 70-110 TESTED AT [address] (test unuf=1291) [place] [address] [id number] 08:55:00 Test Item Value Reference Range Comments LIPASE (BEAKER) (test vupr=830) 471 U/L 8-78 POCT-GLUCOSE [id number] 08:12:00 Test Item Value Reference Range Comments POC-GLUCOSE METER (BEAKER) 128 mg/dL 70-110 TESTED AT [address] (test qdnb=2359) [place] [address] [id number] 04:12:00 Test Item Value Reference Range Comments T3 TOTAL (BEAKER) (test sexg=614) 41 ng/dL 48-159 T3, [id number] 04:11:00 Test Item Value Reference Range Comments T3 FREE (BEAKER) (test aive=465) 1.31 pg/mL 1.71-3.71 COMPREHENSIVE METABOLIC [id number] 04:01:00 Test Item Value Reference Range Comments TOTAL PROTEIN (BEAKER) 4.8 gm/dL 6.0-8.3 (test fewr=684) ALBUMIN (BEAKER) (test 2.8 g/dL 3.5-5.0 cbeh=7483) ALKALINE PHOSPHATASE 33 U/L 40-150 (BEAKER) (test upds=371) BILIRUBIN TOTAL (BEAKER) 0.4 mg/dL 0.2-1.2 (test keia=491) SODIUM (BEAKER) (test 143 meq/L 136-145 bowp=533) POTASSIUM (BEAKER) (test 4.0 meq/L 3.5-5.1 lphd=222) CHLORIDE (BEAKER) (test 110 meq/L 98-107 hbxx=631) CO2 (BEAKER) (test 26 meq/L 22-29 mdpu=555) BLOOD UREA NITROGEN 9 mg/dL 7-21 (BEAKER) (test vxqc=989) CREATININE (BEAKER) (test 0.73 mg/dL 0.57-1.25 psoq=756) GLUCOSE RANDOM (BEAKER) 213 mg/dL 70-105 (test icid=839) CALCIUM (BEAKER) (test 8.2 mg/dL 8.4-10.2 ufps=386) AST (SGOT) (BEAKER) (test 8 U/L 5-34 ygvb=715) ALT (SGPT) (BEAKER) (test < U/L 6-55 cvlq=266) EGFR (BEAKER) (test 77 mL/min/1.73 sq m ESTIMATED GFR IS NOT cpdy=0073) ACCURATE CREATININE CLEARANCE IN PREDICTING GLOMERULAR FILTRATION RATE. ESTIMATED GFR IS NOT APPLICABLE FOR DIALYSIS PATIENTS. [id number] 03:54:00 Test Item Value Reference Range Comments MAGNESIUM (BEAKER) (test uelm=426) 1.7 mg/dL 1.6-2.6 PROTHROMBIN [id number] 03:53:00 Test Item Value Reference Range Comments PROTIME (BEAKER) (test vhsc=820) 22.4 seconds 11.7-14.7 INR (BEAKER) (test ecom=017) 2.0 <=5.9 RECOMMENDED COUMADIN/WARFARIN INR THERAPY RANGESSTANDARD DOSE: 2.0 - 3.0 Includes: PROPHYLAXIS forvenous thrombosis, systemic embolization; TREATMENT for venous thrombosis and/or pulmonary embolus.HIGH RISK: Target INR is 2.5-3.5 for patients with mechanical heart valves.CBC W/PLT COUNT & AUTO [id number] 03:46:00 Test Item Value Reference Range Comments WHITE BLOOD CELL COUNT (BEAKER) (test vrqc=277) 5.3 K/ L 3.5-10.5 RED BLOOD CELL COUNT (BEAKER) (test mcbj=624) 3.04 M/ L 3.93-5.22 HEMOGLOBIN (BEAKER) (test bccw=570) 9.7 GM/DL 11.2-15.7 HEMATOCRIT (BEAKER) (test uium=238) 30.6 % 34.1-44.9 MEAN CORPUSCULAR VOLUME (BEAKER) (test xvpu=695) 100.7 fL 79.4-94.8 MEAN CORPUSCULAR HEMOGLOBIN (BEAKER) (test 31.9 pg 25.6-32.2 ccpg=013) MEAN CORPUSCULAR HEMOGLOBIN CONC (BEAKER) (test 31.7 GM/DL 32.2-35.5 ices=811) RED CELL DISTRIBUTION WIDTH (BEAKER) (test 14.6 % 11.7-14.4 nvbd=860) PLATELET COUNT (BEAKER) (test dkce=856) 135 K/CU MM 150-450 MEAN PLATELET VOLUME (BEAKER) (test bfev=989) 11.4 fL 9.4-12.3 NUCLEATED RED BLOOD CELLS (BEAKER) (test 0 /100 WBC 0-0 xsoi=036) NEUTROPHILS RELATIVE PERCENT (BEAKER) (test 76 % oirc=781) LYMPHOCYTES RELATIVE PERCENT (BEAKER) (test 19 % caoz=744) MONOCYTES RELATIVE PERCENT (BEAKER) (test 3 % nglz=873) EOSINOPHILS RELATIVE PERCENT (BEAKER) (test 0 % ftog=692) BASOPHILS RELATIVE PERCENT (BEAKER) (test 0 % jznm=617) NEUTROPHILS ABSOLUTE COUNT (BEAKER) (test 4.02 K/ L 1.56-6.13 tehz=680) LYMPHOCYTES ABSOLUTE COUNT (BEAKER) (test 1.01 K/ L 1.18-3.74 crvz=810) MONOCYTES ABSOLUTE COUNT (BEAKER) (test 0.15 K/ L 0.24-0.36 lgjd=128) EOSINOPHILS ABSOLUTE COUNT (BEAKER) (test 0.01 K/ L 0.04-0.36 lcmm=621) BASOPHILS ABSOLUTE COUNT (BEAKER) (test 0.01 K/ L 0.01-0.08 zbjs=813) IMMATURE GRANULOCYTES-RELATIVE PERCENT (BEAKER) 1 % 0-1 (test fcsu=5721) POCT-GLUCOSE [id number] 22:34:00 Test Item Value Reference Range Comments POC-GLUCOSE METER (BEAKER) 252 mg/dL 70-110 TESTED AT [address] (test lbcf=2269) [place] [address] [id number] 19:36:00 Test Item Value Reference Range Comments MAGNESIUM (BEAKER) (test zqqj=167) 1.6 mg/dL 1.6-2.6 BASIC METABOLIC [id number] 19:36:00 Test Item Value Reference Range Comments SODIUM (BEAKER) (test 143 meq/L 136-145 zdgm=758) POTASSIUM (BEAKER) (test 4.1 meq/L 3.5-5.1 gumf=300) CHLORIDE (BEAKER) (test 109 meq/L 98-107 tdnv=890) CO2 (BEAKER) (test 24 meq/L 22-29 kgvq=347) BLOOD UREA NITROGEN 9 mg/dL 7-21 (BEAKER) (test tlag=166) CREATININE (BEAKER) (test 0.74 mg/dL 0.57-1.25 tydn=079) GLUCOSE RANDOM (BEAKER) 249 mg/dL 70-105 (test kozz=890) CALCIUM (BEAKER) (test 8.1 mg/dL 8.4-10.2 cviu=444) EGFR (BEAKER) (test 76 mL/min/1.73 sq m ESTIMATED GFR IS NOT iuzv=6352) ACCURATE CREATININE CLEARANCE IN PREDICTING GLOMERULAR FILTRATION RATE. ESTIMATED GFR IS NOT APPLICABLE FOR DIALYSIS PATIENTS. URINE [id number] 11:51:00 Test Item Value Reference Range Comments CULTURE (BEAKER) (test uxdv=7359) No growth POCT-GLUCOSE [id number] 11:42:00 Test Item Value Reference Range Comments POC-GLUCOSE METER (BEAKER) 205 mg/dL 70-110 TESTED AT [address] (test nreu=0430) [place] [address] POCT-GLUCOSE [id number] 08:08:00 Test Item Value Reference Range Comments POC-GLUCOSE METER (BEAKER) 119 mg/dL 70-110 TESTED AT [address] (test nmmg=6575) [place] [id number] C. DIFFICILE GDH [id number] 07:40:00 Test Item Value Reference Range Comments CDT TOXIN (test Negative Negative hlcz=[id number]) CDT GDH ANTIGEN (test Positive Negative C. difficile present but toxin vucr=[id number]) not detected. Indicates colonization with non-toxigenic strain or level of toxin below detectable levels. No need for enteric isolation. Treatment is rarely needed (only when strong clinical suspicion for Clostridium difficile infection) Testing performed by [employer] Rapid Cassette Assay. For GDH, published sensitivity of the assay is 98.7% compared to cytotoxicity testing. For Toxin AB, published sensitivity is 87.8% and specificity 99.4% compared to cytotoxicity testing.Verification of kit performance was done by the [facility] Microbiology [facility] prior to clinical use.POCT-GLUCOSE [id number] 06:37:00 Test Item Value Reference Range Comments POC-GLUCOSE METER (BEAKER) 141 mg/dL 70-110 TESTED AT [address] (test vzmg=6570) [place] [address] COMPREHENSIVE METABOLIC [id number] 04:48:00 Test Item Value Reference Range Comments TOTAL PROTEIN (BEAKER) 4.7 gm/dL 6.0-8.3 (test gvvv=688) ALBUMIN (BEAKER) (test 2.7 g/dL 3.5-5.0 hbpi=6983) ALKALINE PHOSPHATASE 33 U/L 40-150 (BEAKER) (test gcce=911) BILIRUBIN TOTAL (BEAKER) 0.4 mg/dL 0.2-1.2 (test koyk=504) SODIUM (BEAKER) (test 145 meq/L 136-145 twki=855) POTASSIUM (BEAKER) (test 3.7 meq/L 3.5-5.1 srge=833) CHLORIDE (BEAKER) (test 110 meq/L 98-107 uvew=459) CO2 (BEAKER) (test 28 meq/L 22-29 wugp=979) BLOOD UREA NITROGEN 11 mg/dL 7-21 (BEAKER) (test rxbb=474) CREATININE (BEAKER) (test 0.74 mg/dL 0.57-1.25 jvwe=675) GLUCOSE RANDOM (BEAKER) 137 mg/dL 70-105 (test wufe=511) CALCIUM (BEAKER) (test 8.2 mg/dL 8.4-10.2 ybed=994) AST (SGOT) (BEAKER) (test 8 U/L 5-34 htve=420) ALT (SGPT) (BEAKER) (test < U/L 6-55 jyki=572) EGFR (BEAKER) (test 76 mL/min/1.73 sq m ESTIMATED GFR IS NOT lsfp=0418) ACCURATE CREATININE CLEARANCE IN PREDICTING GLOMERULAR FILTRATION RATE. ESTIMATED GFR IS NOT APPLICABLE FOR DIALYSIS PATIENTS. PROTHROMBIN [id number] 04:40:00 Test Item Value Reference Range Comments PROTIME (BEAKER) (test wjql=620) 23.8 seconds 11.7-14.7 INR (BEAKER) (test eayv=884) 2.1 <=5.9 RECOMMENDED COUMADIN/WARFARIN INR THERAPY RANGESSTANDARD DOSE: 2.0 - 3.0 Includes: PROPHYLAXIS forvenous thrombosis, systemic embolization; TREATMENT for venous thrombosis and/or pulmonary embolus.HIGH RISK: Target INR is 2.5-3.5 for patients with mechanical heart valves.While on warfarin.[id number] 04:29:00 Test Item Value Reference Range Comments MAGNESIUM (BEAKER) (test jvlx=014) 2.0 mg/dL 1.6-2.6 CBC W/PLT COUNT & AUTO [id number] 04:11:00 Test Item Value Reference Range Comments WHITE BLOOD CELL COUNT (BEAKER) (test vbxv=819) 5.8 K/ L 3.5-10.5 RED BLOOD CELL COUNT (BEAKER) (test kavc=613) 3.18 M/ L 3.93-5.22 HEMOGLOBIN (BEAKER) (test slmh=971) 10.0 GM/DL 11.2-15.7 HEMATOCRIT (BEAKER) (test abwq=316) 31.8 % 34.1-44.9 MEAN CORPUSCULAR VOLUME (BEAKER) (test wqlr=290) 100.0 fL 79.4-94.8 MEAN CORPUSCULAR HEMOGLOBIN (BEAKER) (test 31.4 pg 25.6-32.2 uovs=840) MEAN CORPUSCULAR HEMOGLOBIN CONC (BEAKER) (test 31.4 GM/DL 32.2-35.5 wean=183) RED CELL DISTRIBUTION WIDTH (BEAKER) (test 14.9 % 11.7-14.4 bkvz=684) PLATELET COUNT (BEAKER) (test znbt=459) 141 K/CU MM 150-450 MEAN PLATELET VOLUME (BEAKER) (test abzc=158) 11.3 fL 9.4-12.3 NUCLEATED RED BLOOD CELLS (BEAKER) (test 0 /100 WBC 0-0 poqu=991) NEUTROPHILS RELATIVE PERCENT (BEAKER) (test 71 % aooa=028) LYMPHOCYTES RELATIVE PERCENT (BEAKER) (test 23 % uniw=152) MONOCYTES RELATIVE PERCENT (BEAKER) (test 4 % likm=609) EOSINOPHILS RELATIVE PERCENT (BEAKER) (test 0 % svyu=689) BASOPHILS RELATIVE PERCENT (BEAKER) (test 0 % abqg=650) NEUTROPHILS ABSOLUTE COUNT (BEAKER) (test 4.14 K/ L 1.56-6.13 nzod=687) LYMPHOCYTES ABSOLUTE COUNT (BEAKER) (test 1.34 K/ L 1.18-3.74 syle=502) MONOCYTES ABSOLUTE COUNT (BEAKER) (test 0.23 K/ L 0.24-0.36 htdw=386) EOSINOPHILS ABSOLUTE COUNT (BEAKER) (test 0.02 K/ L 0.04-0.36 jlch=531) BASOPHILS ABSOLUTE COUNT (BEAKER) (test 0.02 K/ L 0.01-0.08 iajz=590) IMMATURE GRANULOCYTES-RELATIVE PERCENT (BEAKER) 1 % 0-1 (test bhkt=7908) POCT-GLUCOSE [id number] 22:19:00 Test Item Value Reference Range Comments POC-GLUCOSE METER (BEAKER) 266 mg/dL 70-110 TESTED AT [facility] [address] [facility] (test vpsn=2783) [facility] [address] [id number] 17:54:00 Test Item Value Reference Range Comments POTASSIUM (BEAKER) (test fomw=568) 4.2 meq/L 3.5-5.1 [id number] 17:23:00 Test Item Value Reference Range Comments MAGNESIUM (BEAKER) (test rwnn=613) 1.7 mg/dL 1.6-2.6 POCT-GLUCOSE [id number] 12:41:00 Test Item Value Reference Range Comments POC-GLUCOSE METER (BEAKER) 111 mg/dL 70-110 TESTED AT [facility] [address] [facility] (test evsh=9616) [facility] [address] [id number] 12:40:00 Test Item Value Reference Range Comments POTASSIUM (BEAKER) (test zqtd=550) 3.5 meq/L 3.5-5.1 POCT-GLUCOSE [id number] 10:05:00 Test Item Value Reference Range Comments POC-GLUCOSE METER (BEAKER) 94 mg/dL 70-110 TESTED AT [address] (test jioq=4316) [facility] [address] COMPREHENSIVE METABOLIC [id number] 05:47:00 Test Item Value Reference Range Comments TOTAL PROTEIN (BEAKER) 4.7 gm/dL 6.0-8.3 (test wihd=552) ALBUMIN (BEAKER) (test 2.7 g/dL 3.5-5.0 cazt=2756) ALKALINE PHOSPHATASE 31 U/L 40-150 (BEAKER) (test sfum=996) BILIRUBIN TOTAL (BEAKER) 0.5 mg/dL 0.2-1.2 (test utdk=588) SODIUM (BEAKER) (test 147 meq/L 136-145 uamb=494) POTASSIUM (BEAKER) (test 2.9 meq/L 3.5-5.1 ttav=415) CHLORIDE (BEAKER) (test 110 meq/L 98-107 pkoa=309) CO2 (BEAKER) (test 27 meq/L 22-29 dddc=439) BLOOD UREA NITROGEN 10 mg/dL 7-21 (BEAKER) (test gczt=330) CREATININE (BEAKER) (test 0.70 mg/dL 0.57-1.25 xinm=977) GLUCOSE RANDOM (BEAKER) 86 mg/dL 70-105 (test dxip=684) CALCIUM (BEAKER) (test 7.9 mg/dL 8.4-10.2 hfog=471) AST (SGOT) (BEAKER) (test 9 U/L 5-34 tryh=932) ALT (SGPT) (BEAKER) (test < U/L 6-55 frpx=724) EGFR (BEAKER) (test 81 mL/min/1.73 sq m ESTIMATED GFR IS NOT czhw=4987) ACCURATE CREATININE CLEARANCE IN PREDICTING GLOMERULAR FILTRATION RATE. ESTIMATED GFR IS NOT APPLICABLE FOR DIALYSIS PATIENTS. [id number] 05:44:00 Test Item Value Reference Range Comments MAGNESIUM (BEAKER) (test auey=546) 2.0 mg/dL 1.6-2.6 PROTHROMBIN [id number] 05:37:00 Test Item Value Reference Range Comments PROTIME (BEAKER) (test jxjt=786) 24.0 seconds 11.7-14.7 INR (BEAKER) (test klef=985) 2.2 <=5.9 RECOMMENDED COUMADIN/WARFARIN INR THERAPY RANGESSTANDARD DOSE: 2.0 - 3.0 Includes: PROPHYLAXIS forvenous thrombosis, systemic embolization; TREATMENT for venous thrombosis and/or pulmonary embolus.HIGH RISK: Target INR is 2.5-3.5 for patients with mechanical heart valves.PROTHROMBIN [id number] 05:36: 00 Test Item Value Reference Range Comments PROTIME (BEAKER) (test oolj=273) 24.2 seconds 11.7-14.7 INR (BEAKER) (test nzog=537) 2.2 <=5.9 RECOMMENDED COUMADIN/WARFARIN INR THERAPY RANGESSTANDARD DOSE: 2.0 - 3.0 Includes: PROPHYLAXIS forvenous thrombosis, systemic embolization; TREATMENT for venous thrombosis and/or pulmonary embolus.HIGH RISK: Target INR is 2.5-3.5 for patients with mechanical heart valves.While on warfarin.CBC W/PLT COUNT &amp ; AUTO [id number] 05:35:00 Test Item Value Reference Range Comments WHITE BLOOD CELL COUNT (BEAKER) (test lczx=949) 4.3 K/ L 3.5-10.5 RED BLOOD CELL COUNT (BEAKER) (test mnkx=543) 3.29 M/ L 3.93-5.22 HEMOGLOBIN (BEAKER) (test kojt=163) 10.3 GM/DL 11.2-15.7 HEMATOCRIT (BEAKER) (test awzo=155) 33.2 % 34.1-44.9 MEAN CORPUSCULAR VOLUME (BEAKER) (test amsn=278) 100.9 fL 79.4-94.8 MEAN CORPUSCULAR HEMOGLOBIN (BEAKER) (test 31.3 pg 25.6-32.2 dbta=808) MEAN CORPUSCULAR HEMOGLOBIN CONC (BEAKER) (test 31.0 GM/DL 32.2-35.5 cfna=725) RED CELL DISTRIBUTION WIDTH (BEAKER) (test 14.9 % 11.7-14.4 wlcq=131) PLATELET COUNT (BEAKER) (test tvec=921) 138 K/CU MM 150-450 MEAN PLATELET VOLUME (BEAKER) (test rmoo=166) 11.5 fL 9.4-12.3 NUCLEATED RED BLOOD CELLS (BEAKER) (test 0 /100 WBC 0-0 snpp=288) NEUTROPHILS RELATIVE PERCENT (BEAKER) (test 66 % ugip=971) LYMPHOCYTES RELATIVE PERCENT (BEAKER) (test 27 % ukru=186) MONOCYTES RELATIVE PERCENT (BEAKER) (test 4 % zhka=587) EOSINOPHILS RELATIVE PERCENT (BEAKER) (test 1 % umwo=017) BASOPHILS RELATIVE PERCENT (BEAKER) (test 0 % vokf=611) NEUTROPHILS ABSOLUTE COUNT (BEAKER) (test 2.82 K/ L 1.56-6.13 wnrv=097) LYMPHOCYTES ABSOLUTE COUNT (BEAKER) (test 1.16 K/ L 1.18-3.74 tjze=860) MONOCYTES ABSOLUTE COUNT (BEAKER) (test 0.18 K/ L 0.24-0.36 mmol=114) EOSINOPHILS ABSOLUTE COUNT (BEAKER) (test 0.06 K/ L 0.04-0.36 lirp=703) BASOPHILS ABSOLUTE COUNT (BEAKER) (test 0.01 K/ L 0.01-0.08 dfzr=572) IMMATURE GRANULOCYTES-RELATIVE PERCENT (BEAKER) 1 % 0-1 (test ouha=5537) POCT-GLUCOSE [id number] 23:56:00 Test Item Value Reference Range Comments POC-GLUCOSE METER (BEAKER) 105 mg/dL 70-110 TESTED AT [facility] [address] [facility] (test plnq=1456) [facility] [address] TROPONIN [id number] 13:02:00 Test Item Value Reference Range Comments TROPONIN I (BEAKER) (test rbco=855) 0.02 ng/mL 0.00-0.03 Troponin I (TnI) levels [...] NATRIURETIC PEPTIDE (BEAKER) (test 975 pg/mL 0-100 mtzh=057) POCT-GLUCOSE [id number] 12:18:00 Test Item Value Reference Range Comments POC-GLUCOSE METER (BEAKER) 175 mg/dL 70-110 TESTED AT [facility] [address] [facility] (test oqtc=4457) [facility] [address] U/S, ABDOMINAL, [id number] 10:23:00Abdomen limited area? Add comment if clarification [...] Verified Date/Time: 01/14/2018 10:23:02 Reading Location: [facility] C0X Ortho Consult Reading Room T4, [id number] 08:42 :00 Test Item Value Reference Range Comments FREE T4 (BEAKER) (test bhol=241) 0.83 ng/dL 0.70-1.48 POCT-GLUCOSE [id number] 08:37:00 Test Item Value Reference Range Comments POC-GLUCOSE METER (BEAKER) 161 mg/dL 70-110 TESTED AT [facility] [address] [facility] (test gzfp=8078) [facility] [address] TSH/FREE T4 IF [id number] 08:05:00 Test Item Value Reference Range Comments THYROID STIMULATING HORMONE (BEAKER) (test 0.02 uIU/mL 0.35-4.94 sqfx=275) VITAMIN B12 AND [id number] 07:42:00 Test Item Value Reference Range Comments VITAMIN B12 (BEAKER) (test jubr=290) 1276 pg/mL 213-816 FOLATE (BEAKER) (test zhwi=009) 8.8 ng/mL >=7.0 LIPID [id number] 07:14:00 Test Item Value Reference Range Comments TRIGLYCERIDES (BEAKER) (test rloj=754) 171 mg/dL CHOLESTEROL (BEAKER) (test novj=075) 123 mg/dL HDL CHOLESTEROL (BEAKER) (test nnid=979) 25 mg/dL LDL CHOLESTEROL CALCULATED (BEAKER) (test 64 mg/dL gpga=689) Triglyceride Reference Range: Low Risk <150 Borderline 150- 199 High Risk 200-499 Very High Risk >=500Cholesterol Reference Range: Low Risk <200 Borderline 200-239 High Risk > 240HDL Cholesterol Reference Range: Low Risk >=60 High Risk <40LDL Cholesterol Reference Range: Optimal <100 Near Optimal 100-129 Borderline 130-159 High 160-189 Very High >=190TROPONIN [id number] 07:12:00 Test Item Value Reference Range Comments TROPONIN I (BEAKER) (test wyjo=382) 0.03 ng/mL 0.00-0.03 Troponin I (TnI) levels [...] acute neurological disease, and persistent tachyarrhythmia.URINALYSIS W/ [id number] 06: 35:00 Test Item Value Reference Range Comments COLOR (BEAKER) (test alsa=430) Yellow CLARITY (BEAKER) (test kxct=723) Clear SPECIFIC GRAVITY UA (BEAKER) (test dmyx=453) 1.043 1.001-1.035 PH UA (BEAKER) (test wzjp=819) 6.5 5.0-8.0 PROTEIN UA (BEAKER) (test wjha=586) 20 mg/dL Negative GLUCOSE UA (BEAKER) (test bodo=032) 1000 mg/dL Negative KETONES UA (BEAKER) (test uaeq=054) Negative Negative BILIRUBIN UA (BEAKER) (test tseh=650) Negative Negative BLOOD UA (BEAKER) (test jfqn=291) Trace Negative NITRITE UA (BEAKER) (test ylfv=428) Negative Negative LEUKOCYTE ESTERASE UA (BEAKER) (test list=830) Negative Negative UROBILINOGEN UA (BEAKER) (test zjim=748) 0.2 mg/dL 0.2-1.0 RBC UA (BEAKER) (test ahgo=927) 1 /HPF WBC UA (BEAKER) (test rkyr=506) 3 /HPF BACTERIA (BEAKER) (test glor=965) Rare SOURCE(BEAKER) (test qwyy=7800) Urine, Taylor [id number] 06:07:00 Test Item Value Reference Range Comments MAGNESIUM (BEAKER) (test svbz=215) 1.8 mg/dL 1.6-2.6 [id number] 05:32:00 Test Item Value Reference Range Comments MAGNESIUM (BEAKER) (test xgaa=025) 2.5 mg/dL 1.6-2.6 COMPREHENSIVE METABOLIC [id number] 05:32:00 Test Item Value Reference Range Comments TOTAL PROTEIN (BEAKER) 5.1 gm/dL 6.0-8.3 (test aaqn=871) ALBUMIN (BEAKER) (test 2.9 g/dL 3.5-5.0 jfnb=0903) ALKALINE PHOSPHATASE 31 U/L 40-150 (BEAKER) (test ooel=835) BILIRUBIN TOTAL (BEAKER) 0.4 mg/dL 0.2-1.2 (test pxhm=667) SODIUM (BEAKER) (test 145 meq/L 136-145 eiaq=530) POTASSIUM (BEAKER) (test 4.0 meq/L 3.5-5.1 kynu=553) CHLORIDE (BEAKER) (test 110 meq/L 98-107 sikg=678) CO2 (BEAKER) (test 28 meq/L 22-29 heyh=314) BLOOD UREA NITROGEN 14 mg/dL 7-21 (BEAKER) (test krix=179) CREATININE (BEAKER) (test 0.71 mg/dL 0.57-1.25 ndkl=707) GLUCOSE RANDOM (BEAKER) 187 mg/dL 70-105 (test wsgc=391) CALCIUM (BEAKER) (test 8.1 mg/dL 8.4-10.2 xbvg=963) AST (SGOT) (BEAKER) (test 9 U/L 5-34 lsnf=447) ALT (SGPT) (BEAKER) (test 6 U/L 6-55 cfmk=634) EGFR (BEAKER) (test 79 mL/min/1.73 sq m ESTIMATED GFR IS NOT hwjh=9321) ACCURATE CREATININE CLEARANCE IN PREDICTING GLOMERULAR FILTRATION RATE. ESTIMATED GFR IS NOT APPLICABLE FOR DIALYSIS PATIENTS. PROTHROMBIN [id number] 05:10:00 Test Item Value Reference Range Comments PROTIME (BEAKER) (test xdpy=107) 25.1 seconds 11.7-14.7 INR (BEAKER) (test djly=938) 2.3 <=5.9 RECOMMENDED COUMADIN/WARFARIN INR THERAPY RANGESSTANDARD DOSE: 2.0 - 3.0 Includes: PROPHYLAXIS forvenous thrombosis, systemic embolization; TREATMENT for venous thrombosis and/or pulmonary embolus.HIGH RISK: Target INR is 2.5-3.5 for patients with mechanical heart valves.CBC W/PLT COUNT & AUTO [id number] 05:03:00 Test Item Value Reference Range Comments WHITE BLOOD CELL COUNT (BEAKER) (test jxul=004) 5.6 K/ L 3.5-10.5 RED BLOOD CELL COUNT (BEAKER) (test azox=611) 3.19 M/ L 3.93-5.22 HEMOGLOBIN (BEAKER) (test olrj=955) 10.1 GM/DL 11.2-15.7 HEMATOCRIT (BEAKER) (test ohqw=728) 31.5 % 34.1-44.9 MEAN CORPUSCULAR VOLUME (BEAKER) (test vghn=767) 98.7 fL 79.4-94.8 MEAN CORPUSCULAR HEMOGLOBIN (BEAKER) (test 31.7 pg 25.6-32.2 bqcz=476) MEAN CORPUSCULAR HEMOGLOBIN CONC (BEAKER) (test 32.1 GM/DL 32.2-35.5 ncsw=387) RED CELL DISTRIBUTION WIDTH (BEAKER) (test 14.6 % 11.7-14.4 ggar=330) PLATELET COUNT (BEAKER) (test hqgv=378) 141 K/CU MM 150-450 MEAN PLATELET VOLUME (BEAKER) (test lyop=914) 11.6 fL 9.4-12.3 NUCLEATED RED BLOOD CELLS (BEAKER) (test 0 /100 WBC 0-0 plre=122) NEUTROPHILS RELATIVE PERCENT (BEAKER) (test 71 % bjeb=652) LYMPHOCYTES RELATIVE PERCENT (BEAKER) (test 22 % rnmo=366) MONOCYTES RELATIVE PERCENT (BEAKER) (test 5 % agbp=038) EOSINOPHILS RELATIVE PERCENT (BEAKER) (test 0 % dlka=311) BASOPHILS RELATIVE PERCENT (BEAKER) (test 0 % ruik=442) NEUTROPHILS ABSOLUTE COUNT (BEAKER) (test 4.00 K/ L 1.56-6.13 pcwe=808) LYMPHOCYTES ABSOLUTE COUNT (BEAKER) (test 1.25 K/ L 1.18-3.74 qlco=604) MONOCYTES ABSOLUTE COUNT (BEAKER) (test 0.26 K/ L 0.24-0.36 owpm=440) EOSINOPHILS ABSOLUTE COUNT (BEAKER) (test 0.02 K/ L 0.04-0.36 qfsp=526) BASOPHILS ABSOLUTE COUNT (BEAKER) (test 0.01 K/ L 0.01-0.08 bckg=618) IMMATURE GRANULOCYTES-RELATIVE PERCENT (BEAKER) 1 % 0-1 (test dntl=0856) [id number] 02:52:00 Test Item Value Reference Range Comments PROCALCITONIN (BEAKER) (test dytw=6128) 0.41 ng/mL <0.05 SEPSIS RISK (ng/mL)Low: 0.05-0.50Intermediate: 0.51-2.00High: & gt;=2.01LACTIC ACID, VENOUS, WHOLE [id number] 02:06:00 Test Item Value Reference Range Comments LACTATE BLOOD VENOUS (2) 1.3 mmol/L 0.5-2.2 Specimen slightly hemolyzed (BEAKER) (test uesa=7142) Effective 01/07/2016: Units/Reference Range ChangeNew: 0.5-2.2 mmol/L Previous: 5 -20 mg/dLCOMPREHENSIVE METABOLIC [id number] 02:06:00 Test Item Value Reference Range Comments TOTAL PROTEIN (BEAKER) 5.2 gm/dL 6.0-8.3 (test glux=799) ALBUMIN (BEAKER) (test 3.0 g/dL 3.5-5.0 gcdq=1069) ALKALINE PHOSPHATASE 31 U/L 40-150 (BEAKER) (test ntir=792) BILIRUBIN TOTAL (BEAKER) 0.4 mg/dL 0.2-1.2 (test ahbe=299) SODIUM (BEAKER) (test 143 meq/L 136-145 hqcz=158) POTASSIUM (BEAKER) (test 2.9 meq/L 3.5-5.1 tsmc=966) CHLORIDE (BEAKER) (test 109 meq/L 98-107 pilk=077) CO2 (BEAKER) (test 27 meq/L 22-29 dqoj=183) BLOOD UREA NITROGEN 15 mg/dL 7-21 (BEAKER) (test yrkp=149) CREATININE (BEAKER) (test 0.70 mg/dL 0.57-1.25 hqjs=815) GLUCOSE RANDOM (BEAKER) 215 mg/dL 70-105 (test nbrs=109) CALCIUM (BEAKER) (test 7.9 mg/dL 8.4-10.2 srlw=120) AST (SGOT) (BEAKER) (test 10 U/L 5-34 kodk=083) ALT (SGPT) (BEAKER) (test 7 U/L 6-55 okoi=559) EGFR (BEAKER) (test 81 mL/min/1.73 sq m ESTIMATED GFR IS NOT cjso=1974) ACCURATE CREATININE CLEARANCE IN PREDICTING GLOMERULAR FILTRATION RATE. ESTIMATED GFR IS NOT APPLICABLE FOR DIALYSIS PATIENTS. [id number] 02:04:00 Test Item Value Reference Range Comments LIPASE (BEAKER) (test plef=863) 730 U/L 8-78 [id number] 02:04:00 Test Item Value Reference Range Comments AMYLASE (BEAKER) (test dgqy=511) 226 U/L 25-125 PROTHROMBIN TIME/[id number] 01:45:00 Test Item Value Reference Range Comments PROTIME (BEAKER) (test iwaw=231) 23.9 seconds 11.7-14.7 INR (BEAKER) (test aczu=195) 2.1 <=5.9 RECOMMENDED COUMADIN/WARFARIN INR THERAPY RANGESSTANDARD DOSE: 2.0 - 3.0 Includes: PROPHYLAXIS forvenous thrombosis, systemic embolization; TREATMENT for venous thrombosis and/or pulmonary embolus.HIGH RISK: Target INR is 2.5-3.5 for patients with mechanical heart valves.[id number] 01:45:00 Test Item Value Reference Range Comments PARTIAL THROMBOPLASTIN TIME (BEAKER) (test 32.4 seconds 22.5-36.0 octs=878) CBC W/PLT COUNT & AUTO [id number] 01:38:00 Test Item Value Reference Range Comments WHITE BLOOD CELL COUNT (BEAKER) (test koxy=156) 4.9 K/ L 3.5-10.5 RED BLOOD CELL COUNT (BEAKER) (test sisz=822) 3.21 M/ L 3.93-5.22 HEMOGLOBIN (BEAKER) (test faqr=243) 10.2 GM/DL 11.2-15.7 HEMATOCRIT (BEAKER) (test oson=602) 31.6 % 34.1-44.9 MEAN CORPUSCULAR VOLUME (BEAKER) (test mwep=601) 98.4 fL 79.4-94.8 MEAN CORPUSCULAR HEMOGLOBIN (BEAKER) (test 31.8 pg 25.6-32.2 hlhf=236) MEAN CORPUSCULAR HEMOGLOBIN CONC (BEAKER) (test 32.3 GM/DL 32.2-35.5 hrdc=698) RED CELL DISTRIBUTION WIDTH (BEAKER) (test 14.4 % 11.7-14.4 hozv=928) PLATELET COUNT (BEAKER) (test bnsn=805) 137 K/CU MM 150-450 MEAN PLATELET VOLUME (BEAKER) (test tdrd=905) 11.9 fL 9.4-12.3 NUCLEATED RED BLOOD CELLS (BEAKER) (test 0 /100 WBC 0-0 fagf=120) NEUTROPHILS RELATIVE PERCENT (BEAKER) (test 76 % zirv=799) LYMPHOCYTES RELATIVE PERCENT (BEAKER) (test 19 % nkbm=870) MONOCYTES RELATIVE PERCENT (BEAKER) (test 4 % ivpj=408) EOSINOPHILS RELATIVE PERCENT (BEAKER) (test 0 % tfkx=450) BASOPHILS RELATIVE PERCENT (BEAKER) (test 0 % bocz=863) NEUTROPHILS ABSOLUTE COUNT (BEAKER) (test 3.73 K/ L 1.56-6.13 rjbn=750) LYMPHOCYTES ABSOLUTE COUNT (BEAKER) (test 0.92 K/ L 1.18-3.74 ceuh=669) MONOCYTES ABSOLUTE COUNT (BEAKER) (test 0.21 K/ L 0.24-0.36 znya=773) EOSINOPHILS ABSOLUTE COUNT (BEAKER) (test 0.00 K/ L 0.04-0.36 ebgl=785) BASOPHILS ABSOLUTE COUNT (BEAKER) (test 0.01 K/ L 0.01-0.08 txbr=937) IMMATURE GRANULOCYTES-RELATIVE PERCENT (BEAKER) 1 % 0-1 (test adkm=7098)
[2019-04-27 19:37] VITALS: BMI 30.2
[2019-04-27] MEDS: CEFEPIME 1 GM/10 ML SYR IV SCH (20:15)
[2019-04-27 21:01] LABS: Absolute Lymphocytes (CBC) 1.4 K/uL (0.7-4.9); Basophils % 0.5 % (0-1.3); Hematocrit 37.1 % (36.0-45.0); Lymphocytes % 23.6 % (15.3-44.8); MPV 9.7 fL (7.6-11.3); RBC Red Blood Cell Count 3.94 M/uL (3.86-4.86)
[2019-04-27 21:03] LABS: Protime INR 1.34
[2019-04-27 21:16] LABS: Potassium 3.5 mmol/L (3.5-5.1)
--- NOTE | 2019-04-27 21:20 | P.HP ---
Certification for Inpatient Patient admitted to: Inpatient With expected LOS: >2 Midnights Practitioner: I am a practitioner with admitting privileges, knowledge of patient current condition, hospital course, and medical plan of care. 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 The patient was discharged the following day with oral Cefdinir to continue treatment for the UTI as outpatient. Her blood culture grew Gram negative. Patient was called back to be directly admitted for treatment of the gram-negative rods. She is currently complaining of low back pain more localized to the right. She denied any fever or chills or nausea or vomiting since discharge from hospitalization. She endorsed persistent urinary frequency but denied dysuria. Allergies ciprofloxacin [From Cipro] Allergy (Verified 02/11/17 06:42) Unknown rivaroxaban [From Xarelto] Allergy (Verified 02/11/17 06:42) Unknown Home Medications: Amlodipine [Norvasc*] 5 mg PO DAILY 10/06/18 Cholecalciferol (Vitamin D3) [Vitamin D3] 50,000 unit PO SEECOM 10/06/18 Dexlansoprazole [Dexilant] 60 mg PO DAILY 10/06/18 Losartan Potassium [Cozaar] 100 mg PO DAILY 10/06/18 Somatropin [Omnitrope] 0.3 mg SQ DAILY 10/06/18 Sotalol HCl [Betapace] 1 tab PO BID 10/06/18 Warfarin Sodium [Coumadin*] 3 mg PO DAILY 10/06/18 Buspirone HCl [Buspar*] 5 mg PO BID 04/25/19 Potassium Oral Tab [Klor-Con 10 mEq Tab*] 1 tab PO DAILY 04/25/19 clonazePAM [Klonopin*] 1 tab PO BID 04/25/19 Cefdinir [Cefdinir*] 300 mg PO BID #10 cap 04/27/19 Hydrocortisone [Cortef] 30 mg PO BID 04/27/19 Levothyroxine [Synthroid*] 0.112 mg PO DAILYAC 04/27/19 Liothyronine Sodium [Cytomel] 1 tab PO 0600 04/27/19 Methscopolamine 5 mg PO DAILY 04/27/19 - Past Medical/Surgical History Has patient received pneumonia vaccine in the past: Yes Diabetic: Yes -: dm 2 -: History CVA 2012 -: HTN -: Anxiety -: History of pituitary gland removal -: GERD with history of GI bleed -: Hypothyroidism -: Chronic anti coagulation -: History atrial fibrillation -: Chronic steroids -: Adrenal insufficiency -: Hyperlipidemia -: hysterectomy -: bradley carpal tunnel sx -: L lumpectomy -: brain tumor removed- benign -: pituitary gland removal -: appendectomy Psychosocial/ Personal History: The patient is . She has 5 children. She does not work. - Family History Mother -: Heart disease, Hypertension Notes: of heart attack Father -: Heart disease Notes: of heart attack - Social History Smoking Status: Never smoker Alcohol use: No CD- Drugs: No Caffeine use: Yes Place of Residence: Home Review of Systems Other: General: No fever, no malaise, no unintentional weight loss. Eyes: No eye discharge, Respiratory: No cough, no shortness of breath. CVS: No chest pain, no palpitation, no lightheadedness. GI: No abdominal pain, no nausea no vomit, no constipation, no diarrhea. Genitourinary: No incontinence. Musculoskeletal: No joint pains, or joint swelling, she has gait instability. Neurology: No headache, no asymmetric, weakness, no problem with swallowing. Except as documented, all other systems reviewed and negative. Physical Examination - Vital Signs Temperature: 96.7 F Blood Pressure: 154/70 Pulse: 71 Respirations: 16 Pulse Ox (%): 97 - Physical Exam General: Alert, In no apparent distress, Oriented x3 HEENT: Atraumatic, Normocephalic, Mucous membr. moist/pink Neck: Supple, 2+ carotid pulse no bruit, JVD not distended Respiratory: Clear to auscultation bilaterally, Normal air movement Cardiovascular: No edema, Normal pulses, No murmurs, Irregular heart rate/rhythm Capillary refill: <2 Seconds Gastrointestinal: Normal bowel sounds, Soft and benign, Tenderness (Right costovertebral angle tenderness.) Musculoskeletal: No clubbing, No swelling, No erythema Integumentary: No rashes, No erythema Neurological: Normal strength at 5/5 x4 extr, Cranial nerves 3-12 intact, Normal affect - Studies Laboratory Data (last 24 hrs) 04/27/19 20:47: WBC 6.0 D, Hgb 12.3, Hct 37.1, Plt Count 137 L 04/27/19 20:47: PT 15.6 H, INR 1.34 Assessment and Plan - Problems (Diagnosis) (1) Acute cystitis with hematuria Current Visit: Yes Status: Acute (2) Bacteremia due to Gram-negative bacteria Current Visit: No Status: Acute (3) Paroxysmal atrial fibrillation Onset Date: 02/09/16 Current Visit: No Status: Acute (4) Diabetes mellitus type II, non insulin dependent Onset Date: 01/20/16 Current Visit: No Status: Chronic (5) Insufficiency adrenal cortex Current Visit: Yes Status: Acute (6) Hypothyroidism (acquired) Current Visit: Yes Status: Acute (7) Hypertension Onset Date: 01/20/16 Current Visit: No Status: Chronic Qualifiers: Hypertension type: essential hypertension Qualified Code(s): I10 - Essential (primary) hypertension (8) Hypothyroidism Onset Date: 01/20/16 Current Visit: No Status: Chronic Qualifiers: Hypothyroidism type: acquired Qualified Code(s): E03.9 - Hypothyroidism, unspecified (9) Panhypopituitarism Onset Date: 01/20/16 Current Visit: No Status: Chronic - Plan Admit to F Start IV cefepime Repeat blood cultures IV hydration with half normal saline. Mild hypernatremia noted. Check BMP and CBC. Check renal ultrasound. Infectious disease consult Anticipating prolonged antibiotic therapy pending renal ultrasound results PT and OT Continue home dose oral steroid. Continue home dose synthroid Continue home antihypertensives and sotalol. Continue Warfarin for Afib anticoagulation. - Advance Directives Does patient have a Living Will: Yes Does patient have a Durable POA for Healthcare: Yes - Code Status/Comfort Care Code Status: Full Code
[2019-04-27] MEDS ORDERED: ONDANSETRON 4 MG/2 ML VIAL IV PRN (21:36)
[2019-04-27] MEDS ORDERED: CEFEPIME 2 GM/200 ML BAG IV ONE (21:39)
[2019-04-28] MEDS: CEFEPIME 1 GM/10 ML SYR IV SCH (04:15)
[2019-04-28 05:34] LABS: Urine Appearance CLEAR; Urine Bilirubin NEGATIVE (NEG); Urine Blood NEGATIVE (NEG); Urine Color YELLOW; Urine Glucose 1+ (NEG); Urine Protein NEGATIVE (NEG); Urine Specific Gravity 1.015 (1.005-1.030); Urine Urobilinogen 0.2 mg/dL (0.2-1.0); Urine pH 6.5 (5.0-7.0)
[2019-04-28 05:39] LABS: Urine Microscopic Reflex NO UMIC
[2019-04-28 06:17] LABS: Protime INR 1.36
[2019-04-28 06:23] LABS: Potassium 3.1 mmol/L (3.5-5.1)
[2019-04-28 06:25] LABS: Absolute Lymphocytes (CBC) 1.8 K/uL (0.7-4.9); Basophils % 0.3 % (0-1.3); Lymphocytes % 37.6 % (15.3-44.8); MPV 9.9 fL (7.6-11.3); RBC Red Blood Cell Count 3.65 M/uL (3.86-4.86)
[2019-04-28] MEDS: INSULIN -REGULAR HUMAN 50 UNIT/0.5 ML ML SQ SCH ×4 (07:30→21:00)
[2019-04-28] MEDS: POTASSIUM CL SA 10 MEQ TAB PO SCH (08:31)
[2019-04-28] MEDS: LOSARTAN POTASSIUM 50 MG TABLET PO SCH (08:32)
[2019-04-28] MEDS: AMLODIPINE 5 MG TAB PO SCH (08:32)
[2019-04-28] MEDS: LIOTHYRONINE SOD 5 MCG TAB PO SCH (08:32)
[2019-04-28] MEDS: BUSPIRONE HCL 5 MG TABLET PO SCH ×2 (08:32→22:32)
[2019-04-28] MEDS: LEVOTHYROXINE SOD 0.1 MG TAB PO SCH ×2 (08:33→08:38)
[2019-04-28] MEDS: SOMATROPIN SQ SCH (08:39)
[2019-04-28] MEDS: HYDROCORTISONE 10 MG TAB PO SCH ×2 (08:39→22:09)
[2019-04-28] MEDS ORDERED: Meropenem 1,000 MG in NA CHLORIDE 0.9% 100 ML IV SCH (09:00)
[2019-04-28] MEDS: METHSCOPOLAMINE 5 MG PO SCH (09:00)
[2019-04-28] MEDS: SOTALOL HCL PO SCH ×2 (09:00→21:00)
[2019-04-28] MEDS ORDERED: Meropenem 1000 MG/VIAL IV SCH (09:00)
[2019-04-28] MEDS ORDERED: POTASSIUM CL SA 10 MEQ TAB PO ONE (09:00)
[2019-04-28] MEDS ORDERED: PIPERACILLIN-TAZO-DEXTROSE,ISO 3.375 GM/50 ML BAG IV SCH (09:30)
[2019-04-28] MEDS: PIPER/TAZO/NS 3.375gm 3.375 GM/100 ML BAG IV SCH ×2 (09:38→17:15)
[2019-04-28] MEDS ORDERED: CEFEPIME/SWI 1gm 10 ML IV SCH (12:00)
--- NOTE | 2019-04-28 15:04 | PN ---
Subjective: Patient is seen and examined. Chart reviewed and case discussed with RN. Code status f ull. Patient is doing well overall. Does not have any major complaints. Medications: List reviewed. Physical Examination: Vital Signs: Temperature 96.1, heart rate 64, blood pressure 177/82, respirations 16, O2 of 99% on r oom air. General: Awake, alert, and oriented x3. Elderly female, in no acute distress, obese. CV: S1, S2. No murmurs. Respiratory: Moving air well bilaterally. Abdomen: Soft, nontender, nondistended. Positive bowel sounds. Extremities: No clubbing, cyanosis, or edema. Neurologic: Cranial nerves 2 through 12 intact grossly. No focal neurological deficit. Speech is n ormal. Laboratory Data: Sodium 146, potassium 3.1, chloride 113, CO2 of 27, BUN 18, creatinine 0.65, glucos e 127, calcium 8.4, magnesium 2. WBC 4.7, H and H 11.5 and 34, platelets 130, neutrophils 54.2%. Cu ltures from last visit growing E coli in the blood, sensitive to Zosyn and Citrobacter, also sensitiv e to Zosyn. Assessment: An 78-year-old female with: 1.Acute cystitis with hematuria secondary to Citrobacter with multi-drug resistance. IV antibiotics will be adjusted. 2.Bacteremia secondary to Escherichia coli. We will continue on Zosyn. We will continue to monitor for signs of sepsis. 3.Paroxysmal atrial fibrillation. We will continue anticoagulation and beta blockers. 4.Diabetes mellitus type 2, nxs-bfppida-vhvzeydeq with hyperglycemia. We will continue sliding scal e insulin and monitor blood glucose levels. Stable. 5.Adrenal insufficiency. We will continue with steroids. 6.Hypothyroidism. Continue Synthroid. 7.Essential hypertension, stable. 8.Panhypopituitarism. 9.Deep venous thrombosis prophylaxis, already on anticoagulation. Plan: Continue IV antibiotics. Monitor INR. Currently subtherapeutic. We will adjust Coumadin dos e. SA/MODL Voice ID: [id number] Report ID: [id number]
[2019-04-28] MEDS ORDERED: WARFARIN SODIUM 5 MG TAB PO SCH (17:00)
[2019-04-28] MEDS ORDERED: WARFARIN SODIUM 3 MG TAB PO SCH (17:00)
--- NOTE | 2019-04-28 19:46 | RAD REPORT ---
EXAM DESCRIPTION: US - Renal Ultrasound-Complete - 04/28/2019 7:30 pm CLINICAL HISTORY: Pyelonephritis, sepsis, possible renal abscess COMPARISON: CT imaging September 2018 FINDINGS: The right kidney measures 9.4 x 5.0 x 4.9 cm. The left kidney measures 10.9 x 5.5 x 5.5 c m. Renal cortical thickness and echogenicity are normal. No hydronephrosis or suspicious renal mass. A mm cyst is present mid upper pole left renal hilum similar to CT study. Bladder is contracted limiting assessment. No perinephric abnormality. No renal or perinephric abscess identified. IMPRESSION: No hydronephrosis or suspicious renal mass. Cyst in the left kidney unchanged from September CT study No ultrasound finding of abscess in the either kidney or surrounding retroperitoneal fat.
[2019-04-28] MEDS ORDERED: DIPHENHYDRAMINE 50 MG/ML VIAL IV ONE (21:50)
[2019-04-28] MEDS ORDERED: DIPHENHYDRAMINE 50 MG/ML VIAL IV STA (21:53)
[2019-04-28] MEDS ORDERED: HYDROCORTISONE SUC 100 MG INJ IV STA ×2 (21:57→22:03)
[2019-04-29] MEDS ORDERED: HYDROMORPHONE HCL 0.5 MG/0.5 ML INJ IV ONE (02:15)
--- NOTE | 2019-04-29 02:17 | P.PN ---
Date of Service: 04/28/19 Diffuse erythematous rash noted. Could be adverse reaction to zosyn. Zosyn discontinued. IV hydrocortisone x 1 dose. Benadryl IV hydromorphone x 1 dose. Zosyn added to allergy profile. Allergy to Ciprofoxacin. No issue with Cephalosporin. There is some risk of cross-reaction Considering Azactam though not in the sensitivity profile. Awaiting ID input.
[2019-04-29] MEDS: LIOTHYRONINE SOD 5 MCG TAB PO SCH (06:00)
[2019-04-29 06:27] LABS: Absolute Lymphocytes (CBC) 0.8 K/uL (0.7-4.9); Basophils % 0.1 % (0-1.3); Hematocrit 40.7 % (36.0-45.0); Lymphocytes % 6.6 % (15.3-44.8); MPV 9.7 fL (7.6-11.3); RBC Red Blood Cell Count 4.35 M/uL (3.86-4.86)
[2019-04-29] MEDS: PANTOPRAZOLE 40MG TABLET PO SCH (06:28)
[2019-04-29] MEDS: LEVOTHYROXINE SOD 0.112 MG TAB PO SCH (06:28)
[2019-04-29 06:35] LABS: Protime INR 1.23
[2019-04-29 06:40] LABS: Albumin 2.7 g/dL (3.4-5.0); Bilirubin Total 0.7 mg/dL (0.2-1.0); Potassium 4.3 mmol/L (3.5-5.1); Protein, Total 6.1 g/dL (6.4-8.2)
[2019-04-29 07:40] LABS: Blood Morphology Comment NOT SEEN (NOT SEEN); Platelet Estimate ADEQ; Urine White Blood Cell Casts OK
[2019-04-29] MEDS: SOMATROPIN SQ SCH (09:00)
[2019-04-29] MEDS: METHSCOPOLAMINE 5 MG PO SCH (09:00)
[2019-04-29] MEDS: BUSPIRONE HCL 5 MG TABLET PO SCH ×2 (09:10→21:53)
[2019-04-29] MEDS: AMLODIPINE 5 MG TAB PO SCH (09:10)
[2019-04-29] MEDS: HYDROCORTISONE 10 MG TAB PO SCH ×2 (09:10→21:55)
[2019-04-29] MEDS: POTASSIUM CL SA 10 MEQ TAB PO SCH (09:11)
[2019-04-29] MEDS: SOTALOL HCL 80 MG TAB PO SCH ×2 (09:11→21:53)
[2019-04-29] MEDS: clonazePAM 0.5 MG TAB PO SCH ×2 (09:11→21:54)
[2019-04-29] MEDS: INSULIN -REGULAR HUMAN 50 UNIT/0.5 ML ML SQ SCH ×4 (09:11→21:52)
[2019-04-29] MEDS: LOSARTAN POTASSIUM 50 MG TABLET PO SCH (09:11)
[2019-04-29] MEDS ORDERED: METHYLPREDNISOLONE 125 MG INJ IV ONE (09:33)
[2019-04-29] MEDS: Meropenem 1,000 MG in NA CHLORIDE 0.9% 100 ML IV SCH ×2 (11:14→16:14)
--- NOTE | 2019-04-29 14:13 | PN ---
Date of Progress Note: 04/29/2019 Subjective: Patient seen and examined. Chart reviewed and case discussed with RN. Patient had a reaction to Zosyn yesterday with rash and swelling and was therefore discontinued. Patient received steroids and Benadryl, feeling better this morning. Medications: List reviewed. Physical Examination: Vital Signs: Temperature 96.8, heart rate 80, blood pressure 122/63, respirations 16, O2 98% on room air. General: Awake, alert, oriented x3. Elderly female, obese. CV: S1, S2. Regular rate and rhythm. Peripheral pulses present. Respiratory: Moving air well bilaterally. No wheezing or stridor. No use of accessory muscles. Gastrointestinal: Abdomen is soft, nontender, nondistended. Positive bowel sounds. No guarding or rigidity. Extremities: No clubbing, cyanosis, or edema. Neurologic: Nonfocal. Skin: Maculopapular rash on the trunk with minimal welts. Laboratory Data: Sodium 144, potassium 4.3, chloride 109, CO2 26, BUN 20, creatinine 0.85, glucose 224, calcium 8.6. WBC 11.8, H and H 13.4 and 40.7, platelets 157, neutrophils 91%. Repeat blood cultures no growth to date. Previous blood cultures growing out E coli and urine culture growing out Citrobacter. Assessment: 78-year-old female with; 1. Acute cystitis with hematuria secondary to Citrobacter with multi-drug resistance. Patient had an allergic reaction to Zosyn, therefore will be switched back to meropenem. 2. Bacteremia secondary to Escherichia coli. Patient will continue meropenem and we will consult Infectious Disease. No signs of sepsis. 3. Paroxysmal atrial fibrillation. Continue with oral anticoagulation and beta-blockers. Patient is on Coumadin. INR is still subtherapeutic. We will adjust the dose. 4. Diabetes mellitus type 2 vvr-cywpbyh-cskgtdhrb with hyperglycemia. We will continue sliding scale insulin and monitor blood glucose levels. 5. Adrenal insufficiency. We will continue with steroids. 6. Drug rash due to Zosyn, has been discontinued. We will give steroids. 7. Hypothyroidism. We will continue with Synthroid. 8. Essential hypertension, stable. Continue home medications. 9. Panhypopituitarism. 10. Deep venous thrombosis prophylaxis. Patient is on Coumadin. INR is subtherapeutic. We will adjust Coumadin dose to ensure that patient is on Coumadin restrictions, including no vitamin K. Plan: Patient will need to be set up with IV antibiotics for 10-14 days due to bacteremia. Unable to transition to oral antibiotics due to her allergies to Cipro and penicillin and multi-drug resistant urine infection li We will consult Infectious Disease. We will try to set up home health with IV infusion therapy due to patient's preference, otherwise we will need to consider half-way facility. MEDARDO Voice ID: [id number] Report ID: [id number] JAMES
[2019-04-29] MEDS: WARFARIN SODIUM 6 MG TAB PO SCH (16:14)
[2019-04-29] MEDS ORDERED: Meropenem 1000 MG/VIAL IV SCH (17:00)
[2019-04-30] MEDS ORDERED: NA CHLORIDE 0.9% 250 ML ONE (01:25)
[2019-04-30] MEDS: Meropenem 1,000 MG in NA CHLORIDE 0.9% 100 ML IV SCH ×3 (01:29→16:11)
[2019-04-30] MEDS: PANTOPRAZOLE 40MG TABLET PO SCH (05:11)
[2019-04-30] MEDS: LIOTHYRONINE SOD 5 MCG TAB PO SCH (05:11)
[2019-04-30] MEDS: LEVOTHYROXINE SOD 0.112 MG TAB PO SCH ×2 (05:11→05:15)
[2019-04-30 05:31] LABS: Absolute Lymphocytes (CBC) 1.1 K/uL (0.7-4.9); Basophils % 0.3 % (0-1.3); Hematocrit 34.7 % (36.0-45.0); Lymphocytes % 10.3 % (15.3-44.8); MPV 9.7 fL (7.6-11.3); RBC Red Blood Cell Count 3.68 M/uL (3.86-4.86)
[2019-04-30 05:52] LABS: Albumin 2.6 g/dL (3.4-5.0); Bilirubin Total 0.4 mg/dL (0.2-1.0); Protein, Total 5.6 g/dL (6.4-8.2)
[2019-04-30 05:53] LABS: Protime INR 1.45
[2019-04-30] MEDS: INSULIN -REGULAR HUMAN 50 UNIT/0.5 ML ML SQ SCH ×4 (07:30→21:00)
[2019-04-30] MEDS: METHSCOPOLAMINE 5 MG PO SCH (09:00)
[2019-04-30] MEDS: SOMATROPIN SQ SCH (09:00)
--- NOTE | 2019-04-30 09:45 | RAD REPORT ---
EXAM DESCRIPTION: Chest Single View ADDENDUM #1 Right PICC line tip is in the mid to lower SVC. Electronically signed by: Ramin Desai MD 04/30/2019 12:22 AM CDT End of Addendum CLINICAL HISTORY: S/P PICC insertion COMPARISON: None. TECHNIQUE: XR CHEST 1 VIEW 04/29/2019 10:56 PM CDT FINDINGS: Cardiac silhouette is normal in size. Lungs are clear without consolidation, atelectasis, mass or edema. There is no pleural effusion. There is no pneumothorax. There are no acute osseous fin dings. IMPRESSION: Clear lungs. Electronically signed by: Ramin Desai MD 04/29/2019 11:30 PM CDT Due to temporary technical issues with the PACS/Fluency reporting system, reports are being signed by the in house radiologist as a courtesy to ensure prompt reporting. The interpreting radiologist is f ully responsible for the content of the report.
[2019-04-30] MEDS: clonazePAM 0.5 MG TAB PO SCH ×2 (10:05→21:02)
[2019-04-30] MEDS: SOTALOL HCL 80 MG TAB PO SCH ×2 (10:05→21:02)
[2019-04-30] MEDS: LOSARTAN POTASSIUM 50 MG TABLET PO SCH (10:05)
[2019-04-30] MEDS: HYDROCORTISONE 10 MG TAB PO SCH ×2 (10:05→21:02)
[2019-04-30] MEDS: POTASSIUM CL SA 10 MEQ TAB PO SCH (10:06)
[2019-04-30] MEDS: AMLODIPINE 5 MG TAB PO SCH (10:06)
[2019-04-30] MEDS: BUSPIRONE HCL 5 MG TABLET PO SCH ×2 (10:06→21:03)
[2019-04-30] MEDS: WARFARIN SODIUM 6 MG TAB PO SCH (16:11)
--- NOTE | 2019-04-30 20:50 | PN ---
Date of Progress Note: 04/30/2019 Subjective: Patient is seen and examined. Chart reviewed and case discussed with RN and social work er. Patient is doing well, responding well to antibiotics. States her rash is almost gone. Medications: List reviewed. Physical Examination: Vital Signs: Temperature 97.2, heart rate 62, blood pressure 142/60, respirations 16, O2 92% on room air. General: Awake, alert, oriented x3. Elderly female, no acute distress. CV: S1, S2. Peripheral pulses present. Respiratory: Moving air well bilaterally. No wheezing or stridor. No use of accessory muscles. Gastrointestinal: Abdomen is soft, nontender, nondistended. Positive bowel sounds. Extremities: No clubbing, cyanosis, or edema. Neurologic: Nonfocal. Laboratory Data: Sodium 143, potassium 4, chloride 111, CO2 of 27, BUN 29, creatinine 0.78, glucose 190, calcium 8.7. WBC 10.2, H and H of 11.9 and 34.7, platelets 137. Repeat blood cultures, no grow th to date. Blood culture from 04/25/2019 growing Escherichia coli and urine culture from 04/25/2019 growing Citrobacter. Assessment: An 78-year-old female with: 1.Acute cystitis with hematuria secondary to Citrobacter with multi-drug resistance. The patient is on meropenem. We will need to continue IV antibiotics, unable to switch to p.o. due to allergies. 2.Bacteremia secondary to Escherichia coli. We will continue meropenem for a total of 2 weeks, impr oving. No signs of sepsis. Repeat cultures negative. 3.Paroxysmal atrial fibrillation. Continue with oral anticoagulation and continue beta-tobias, rat e controlled. INR subtherapeutic. We will need to start on full-dose of Lovenox. 4.Adrenal insufficiency. Continue with steroids. 5.Diabetes mellitus type 2, [id number] with hyperglycemia. We will continue sliding scal e insulin and monitor blood glucose levels. 6.Drug rash due to Zosyn, resolved. 7.Hypothyroidism. Continue Synthroid. 8.Essential hypertension, stable. 9.Panhypopituitarism, stable. 10.Deep venous thrombosis prophylaxis. Patient is on Coumadin. INR is subtherapeutic. We will sta rt full-dose Lovenox until INR is in therapeutic range between 2 and 3. Plan: Discharge in a.m. once IV antibiotics have been set up at home. Spoke with social economist, Bar galvez who states that [facility] was unable to have that antibiotics available tonight. PICC line is already in place. /AZIZA Voice ID: [id number] Report ID: [id number]
[2019-04-30] MEDS: ENOXAPARIN 80 MG/0.8 ML SQ SCH (21:03)
--- NOTE | 2019-04-30 21:29 | CON ---
History Of Present Illness: This is an 78-year-old female. I was consulted for urinary tract infect ion and bacteremia. The patient initially came in with lower back pain started when she went to the restroom. Denies any headache, nausea, vomiting, chest pain, abdominal pain, constipation, or diarrh ea. The patient was admitted for UTI and gram-negative rods bacteremia, currently being treated with IV antibiotic including meropenem. Allergies: TO CIPRO, ZOSYN AND ROBAXIN. Social History: Nonsmoker and nondrinker. Family History: Noncontributory. Medications: Meropenem. See MAR for other medication. Review of Systems: A 10-point review was performed. Physical Examination: General: This is an 78-year-old female, sitting in easy chair, not in any acute cardiopulmonary dist ress. Vital Signs: Temperature 97.2, pulse 62, respirations 16, blood pressure 142/60. HEENT: Unremarkable. Neck: Supple. Lungs: Basal crackles. Heart: S1, S2. Regular. Abdomen: Soft, nontender. Bowel sounds present. Extremities: Trace edema. Laboratory Data: Shows WBC 10.2 down from 11.8, hemoglobin 11.9, platelets 137. Chemistry shows sod ium 143, potassium 4, chloride 111, bicarb 27, BUN 29, creatinine 0.78, glucose is 190, albumin is 2. 6. Micro data: Blood cultures, no growth for 24 hours. Assessment And Plan: An 78-year-old female with multiple medical problems, coming in with urinary tr act infection and bacteremia. Cultures in the hospital negative. The patient grew E coli on 04/25 i n the blood, sensitive to meropenem, amikacin, Cipro, cefazolin, gentamicin. Continue antibiotic and supportive care, total course of 2 weeks, and can be discharged home on IV antibiotics with home [facility]. We will follow the patient as needed. Thank you Dr. Gomez and for consult. HERIBERTO/AZIZA Voice ID: [id number] Report ID: [id number]
[2019-05-01] MEDS: Meropenem 1,000 MG in NA CHLORIDE 0.9% 100 ML IV SCH ×2 (01:22→08:45)
[2019-05-01 05:03] VITALS: TEMP 97.3
[2019-05-01 05:15] LABS: Absolute Lymphocytes (CBC) 1.4 K/uL (0.7-4.9); Basophils % 0.1 % (0-1.3); Hematocrit 35.6 % (36.0-45.0); Lymphocytes % 20.6 % (15.3-44.8); MPV 9.8 fL (7.6-11.3)
[2019-05-01 05:31] LABS: Potassium 3.9 mmol/L (3.5-5.1)
[2019-05-01] MEDS: LEVOTHYROXINE SOD 0.112 MG TAB PO SCH (05:38)
[2019-05-01] MEDS: LIOTHYRONINE SOD 5 MCG TAB PO SCH (05:38)
[2019-05-01] MEDS: PANTOPRAZOLE 40MG TABLET PO SCH (05:38)
[2019-05-01 06:39] LABS: Protime INR 1.9
[2019-05-01] MEDS: INSULIN -REGULAR HUMAN 50 UNIT/0.5 ML ML SQ SCH (07:30)
[2019-05-01] MEDS: HYDROCORTISONE 10 MG TAB PO SCH (08:44)
[2019-05-01] MEDS: LOSARTAN POTASSIUM 50 MG TABLET PO SCH (08:45)
[2019-05-01] MEDS: clonazePAM 0.5 MG TAB PO SCH (08:45)
[2019-05-01] MEDS: SOTALOL HCL 80 MG TAB PO SCH (08:45)
[2019-05-01] MEDS: POTASSIUM CL SA 10 MEQ TAB PO SCH (08:45)
[2019-05-01] MEDS: AMLODIPINE 5 MG TAB PO SCH (08:45)
[2019-05-01] MEDS: ENOXAPARIN 80 MG/0.8 ML SQ SCH (08:45)
[2019-05-01] MEDS: BUSPIRONE HCL 5 MG TABLET PO SCH (08:45)
[2019-05-01] MEDS: METHSCOPOLAMINE 5 MG PO SCH (09:00)
[2019-05-01] MEDS: SOMATROPIN SQ SCH (09:00)
[2019-05-01 10:06] VITALS: BP 173/78
[2019-05-01 10:29] VITALS: O2SAT 97
--- NOTE | 2019-05-01 14:56 | P.DS ---
Admission Date: 04/27/19 Discharge Date: 05/01/19 Disposition: [place] HOME/HOME HEALTH CARE Discharge Condition: GOOD Reason for Admission: Gram-negative bacteremia Consultations: Infectious disease Brief History of Present Illness: 78-year-old woman with a history of panhypopituitarism with adrenal insufficiency and hypothyroidism, history of AFib on anticoagulation was hospitalized on 04/25/19 for UTI with hematuria, urine culture grew Citrobacter. The patient was discharged the following day with oral Cefdinir to continue treatment for the UTI as outpatient. Her blood culture grew Gram negative. Patient was called back to be directly admitted for treatment of the gram-negative rods. She is currently complaining of low back pain more localized to the right. She denied any fever or chills or nausea or vomiting since discharge from hospitalization. She endorsed persistent urinary frequency but denied dysuria. Hospital Course: Patient was started on broad-spectrum IV antibiotics, but it seems she had an allergic reaction to Zosyn. Zosyn was discontinued, IV antibiotics were adjusted and she was started on meropenem. We were unable to switch to oral due to allergies. She also was bacteremic secondary to E. coli. Infectious disease was consulted. It was decided to treat patient with IV meropenem for 2 weeks. Home health was set up for IV antibiotics at home. A PICC line was also placed prior to discharge. She was otherwise resumed on her home medications. Her INR was subtherapeutic therefore she was given a full dose Lovenox along with her Coumadin. Prior to discharge, her INR was 1.9 still subtherapeutic but improved. She will follow up with the dog warden in next 1 -2 days for follow up blood work and adjustment of anticoagulation. Patient was educated on this and her plan was discussed with her. All questions were answered, she verbalized understanding. He was then discharged home in a safe and stable manner. She will follow up with the dog warden in the next 1-2 days to do follow up blood work for therapeutic INR check. Vital Signs/Physical Exam: Temp Pulse Resp BP Pulse Ox 97.3 F 64 17 173/78 H 99 05/01/19 08:00 05/01/19 08:00 05/01/19 08:00 05/01/19 08:00 05/01/19 08:00 General: Alert, In no apparent distress, Oriented x3 HEENT: Atraumatic, PERRLA, EOMI Neck: Supple, JVD not distended Respiratory: Clear to auscultation bilaterally, Normal air movement Cardiovascular: Regular rate/rhythm, Normal S1 S2 Gastrointestinal: Normal bowel sounds, No tenderness Musculoskeletal: No tenderness Integumentary: No rashes Neurological: Normal speech, Normal tone, Normal affect Lymphatics: No axilla or inguinal lymphadenopathy Laboratory Data at Discharge: WBC 6.7 K/uL (4.3-10.9) D 05/01/19 05:00 Hgb 11.7 g/dL (12.0-15.0) L 05/01/19 05:00 Hct 35.6 % (36.0-45.0) L 05/01/19 05:00 Plt Count 134 K/uL (152-406) L 05/01/19 05:00 PT 21.9 SECONDS (9.5-12.5) H 05/01/19 05:00 INR 1.90 05/01/19 05:00 Sodium 147 mmol/L (136-145) H 05/01/19 05:00 Potassium 3.9 mmol/L (3.5-5.1) 05/01/19 05:00 BUN 26 mg/dL (7-18) H 05/01/19 05:00 Creatinine 0.72 mg/dL (0.55-1.3) 05/01/19 05:00 Glucose 122 mg/dL (74-106) H 05/01/19 05:00 Magnesium 2.0 mg/dL (1.8-2.4) 04/28/19 05:41 Total Bilirubin 0.4 mg/dL (0.2-1.0) 04/30/19 05:00 AST 12 U/L (15-37) L 04/30/19 05:00 ALT 10 U/L (12-78) L 04/30/19 05:00 Alkaline Phosphatase 58 U/L (45-117) 04/30/19 05:00 Home Medications: Amlodipine [Norvasc*] 5 mg PO DAILY 10/06/18 Cholecalciferol (Vitamin D3) [Vitamin D3] 50,000 unit PO SEECOM 10/06/18 Dexlansoprazole [Dexilant] 60 mg PO DAILY 10/06/18 Losartan Potassium [Cozaar] 100 mg PO DAILY 10/06/18 Somatropin [Omnitrope] 0.3 mg SQ DAILY 10/06/18 Sotalol HCl [Betapace] 1 tab PO BID 10/06/18 Warfarin Sodium [Coumadin*] 3 mg PO DAILY 10/06/18 Buspirone HCl [Buspar*] 5 mg PO BID 04/25/19 Potassium Oral Tab [Klor-Con 10 mEq Tab*] 1 tab PO DAILY 04/25/19 clonazePAM [Klonopin*] 1 tab PO BID 04/25/19 Cefdinir [Cefdinir*] 300 mg PO BID #10 cap 04/27/19 Hydrocortisone [Cortef] 30 mg PO BID 04/27/19 Levothyroxine [Synthroid*] 0.112 mg PO DAILYAC 04/27/19 Liothyronine Sodium [Cytomel] 1 tab PO 0600 04/27/19 Methscopolamine 5 mg PO DAILY 04/27/19 Patient Discharge Instructions: Please follow up with your primary care physician/dog warden in 1-2 days for lab work to check your coumadin levels. Please return to the ER for worsening symptoms. Diet: AHA Activity: Ad akiko Time spent managing pt's care (in minutes): 55
== END 2019-05-01 11:05 | disposition home health service (06) | DRG 690 ==
LOC: 2ND 19:10
PROVIDERS: ADMIT Family Medicine; ATTEND Internal Medicine
PROC: 02HV33Z Insertion of Infusion Device into Superior Vena Cava, Percutaneous Approach (ICD-10-PCS; principal; 2019-04-29)
DX: N30.01 Acute cystitis with hematuria (principal); R78.81 Bacteremia; E27.40 Unspecified adrenocortical insufficiency; E23.0 Hypopituitarism; B96.20 Unspecified Escherichia coli [E. coli] as the cause of diseases classified elsewhere; E03.9 Hypothyroidism, unspecified; I48.91 Unspecified atrial fibrillation; I48.0 Paroxysmal atrial fibrillation; E11.65 Type 2 diabetes mellitus with hyperglycemia; L27.0 Generalized skin eruption due to drugs and medicaments taken internally; T36.0X5A Adverse effect of penicillins, initial encounter; Y92.009 Unspecified place in unspecified non-institutional (private) residence as the place of occurrence of the external cause; I10 Essential (primary) hypertension; Z79.01 Long term (current) use of anticoagulants; Z88.0 Allergy status to penicillin; Z86.73 Personal history of transient ischemic attack (TIA), and cerebral infarction without residual deficits
CPT/HCPCS: 36415; 71045; 76770; 80048; 80053; 80076; 81003; 81015; 82962; 83690; 83735; 83880; 84100; 84132; 84145; 84439; 84443; 84484; 85025; 85610; 87040; 87077; 87086; 87088; 87186; 87205; 87804; 93005; 94760; 96365; 96375; 97110; 97116; 97161; 97530; 99285; G0378; J0692; J0696; J1170; J1650; J1720; J2543; J2930; J3475; J7030

== ENCOUNTER 2019-11-29 12:35 | Emergency (ER) | payer OTHER ==
--- OUTSIDE RECORDS SUMMARY | 2019-11-29 12:38 | XMS REPORT ---
:1940 [facility] [address] [place] [address] Care Team Providers Name Role Phone YOAV DEL ROSARIO Unavailable Unavailable MACIEJ HAYES Unavailable Unavailable RANCHO SANDOVAL Unavailable Unavailable Problems This patient has no known problems. Allergies, Adverse Reactions, Alerts This patient has no known allergies or adverse reactions. Medications This patient has no known medications. Results Test Description Test Time Test Comments Text Results Atomic Results Result Comments URINALYSIS W/ MICROSCOPIC 2018-11-09 14:50:00 Test Item Value Reference Range Comments COLOR (BEAKER) (test qjmb=017) Yellow CLARITY (BEAKER) (test nnru=379) Hazy SPECIFIC GRAVITY UA (BEAKER) (test vmnv=133) 1.019 1.001-1.035 PH UA (BEAKER) (test pxia=847) 6.0 5.0-8.0 PROTEIN UA (BEAKER) (test rnop=347) Negative Negative GLUCOSE UA (BEAKER) (test fpmj=779) Negative Negative KETONES UA (BEAKER) (test pduz=918) Negative Negative BILIRUBIN UA (BEAKER) (test zqfy=859) Negative Negative BLOOD UA (BEAKER) (test wlbg=989) Negative Negative NITRITE UA (BEAKER) (test tnuz=948) Negative Negative LEUKOCYTE ESTERASE UA (BEAKER) (test poll=130) Large Negative UROBILINOGEN UA (BEAKER) (test dlfo=082) 0.2 mg/dL 0.2-1.0 RBC UA (BEAKER) (test thvp=585) 9 /HPF WBC UA (BEAKER) (test bzxp=462) 17 /HPF MUCUS (BEAKER) (test iupl=8770) Rare SQUAMOUS EPITHELIAL (BEAKER) (test hdju=944) 11 /HPF AMORPHOUS CRYSTALS (BEAKER) (test wlsa=0615) Rare SOURCE(BEAKER) (test npby=7038) Urine, Voided [id number] 13:11:00 Test Item Value Reference Range Comments LIPASE (BEAKER) (test gorf=344) 45 U/L 8-78 BASIC METABOLIC [id number] 13:11:00 Test Item Value Reference Range Comments SODIUM (BEAKER) (test 143 meq/L 136-145 fmaz=648) POTASSIUM (BEAKER) (test 3.1 meq/L 3.5-5.1 cgxz=329) CHLORIDE (BEAKER) (test 110 meq/L 98-107 jell=561) CO2 (BEAKER) (test 24 meq/L 22-29 bcfh=676) BLOOD UREA NITROGEN 24 mg/dL 7-21 (BEAKER) (test ichz=203) CREATININE (BEAKER) (test 0.69 mg/dL 0.57-1.25 kxve=762) GLUCOSE RANDOM (BEAKER) 98 mg/dL 70-105 (test ksjx=935) CALCIUM (BEAKER) (test 9.0 mg/dL 8.4-10.2 qajx=166) EGFR (BEAKER) (test 82 mL/min/1.73 sq m ESTIMATED GFR IS NOT blgw=2780) ACCURATE CREATININE CLEARANCE IN PREDICTING GLOMERULAR FILTRATION RATE. ESTIMATED GFR IS NOT APPLICABLE FOR DIALYSIS PATIENTS. HEPATIC FUNCTION [id number] 13:11:00 Test Item Value Reference Range Comments TOTAL PROTEIN (BEAKER) (test nptc=589) 5.9 gm/dL 6.0-8.3 ALBUMIN (BEAKER) (test txmk=9918) 3.6 g/dL 3.5-5.0 BILIRUBIN TOTAL (BEAKER) (test tdaq=783) 0.6 mg/dL 0.2-1.2 BILIRUBIN DIRECT (BEAKER) (test wtsa=681) 0.2 mg/dL 0.1-0.5 ALKALINE PHOSPHATASE (BEAKER) (test dusc=605) 48 U/L 40-150 AST (SGOT) (BEAKER) (test ajjb=001) 18 U/L 5-34 ALT (SGPT) (BEAKER) (test wxlb=543) 14 U/L 6-55 [id number] 13:02:00 Test Item Value Reference Range Comments PROTIME (BEAKER) (test zceq=572) 19.5 seconds 11.7-14.7 INR (BEAKER) (test lsxq=506) 1.6 <=5.9 PARTIAL THROMBOPLASTIN TIME (BEAKER) (test 30.3 seconds 22.5-36.0 nfst=816) RECOMMENDED COUMADIN/WARFARIN INR THERAPY RANGESSTANDARD DOSE: 2.0 - 3.0 Includes: PROPHYLAXIS forvenous thrombosis, systemic embolization; TREATMENT for venous thrombosis and/or pulmonary embolus.HIGH RISK: Target INR is 2.5-3.5 for patients with mechanical heart valves.CBC W/PLT COUNT & AUTO [id number] 12:56:00 Test Item Value Reference Range Comments WHITE BLOOD CELL COUNT (BEAKER) (test xjns=750) 5.6 K/ L 3.5-10.5 RED BLOOD CELL COUNT (BEAKER) (test acwq=133) 3.83 M/ L 3.93-5.22 HEMOGLOBIN (BEAKER) (test jvty=104) 12.1 GM/DL 11.2-15.7 HEMATOCRIT (BEAKER) (test yagb=086) 36.1 % 34.1-44.9 MEAN CORPUSCULAR VOLUME (BEAKER) (test wyzw=184) 94.3 fL 79.4-94.8 MEAN CORPUSCULAR HEMOGLOBIN (BEAKER) (test 31.6 pg 25.6-32.2 wabn=722) MEAN CORPUSCULAR HEMOGLOBIN CONC (BEAKER) (test 33.5 GM/DL 32.2-35.5 bxlm=262) RED CELL DISTRIBUTION WIDTH (BEAKER) (test 14.8 % 11.7-14.4 wewo=039) PLATELET COUNT (BEAKER) (test kctp=110) 139 K/CU MM 150-450 MEAN PLATELET VOLUME (BEAKER) (test kzbz=520) 11.5 fL 9.4-12.3 NUCLEATED RED BLOOD CELLS (BEAKER) (test 0 /100 WBC 0-0 iwdq=412) NEUTROPHILS RELATIVE PERCENT (BEAKER) (test 71 % pvjp=769) LYMPHOCYTES RELATIVE PERCENT (BEAKER) (test 22 % thol=440) MONOCYTES RELATIVE PERCENT (BEAKER) (test 5 % wcqu=386) EOSINOPHILS RELATIVE PERCENT (BEAKER) (test 1 % ltwd=169) BASOPHILS RELATIVE PERCENT (BEAKER) (test 0 % xvij=081) NEUTROPHILS ABSOLUTE COUNT (BEAKER) (test 4.01 K/ L 1.56-6.13 vmyt=333) LYMPHOCYTES ABSOLUTE COUNT (BEAKER) (test 1.25 K/ L 1.18-3.74 fofr=687) MONOCYTES ABSOLUTE COUNT (BEAKER) (test 0.29 K/ L 0.24-0.36 clwx=314) EOSINOPHILS ABSOLUTE COUNT (BEAKER) (test 0.05 K/ L 0.04-0.36 mrws=877) BASOPHILS ABSOLUTE COUNT (BEAKER) (test 0.02 K/ L 0.01-0.08 dzxm=396) IMMATURE GRANULOCYTES-RELATIVE PERCENT (BEAKER) 0 % 0-1 (test qdvl=7096) TISSUE [id number] 13:06:00Surgical Pathology Report Case: [id number] Authorizing Provider: Maciej Hayes Collected: 03/14/2018 1115 Ordering Location: [facility] Endoscopy Received: 03/14/2018 1351 Services Pathologist: Mara Barboza MD Specimens: A) - Polyp, Duodenum B) - Stomach, Antrum, bx C) - Biopsy, Gastric, gastric body D) - Biopsy, Esophagus, random THIS ADDENDUM IS ISSUED TO REPORT THE RESULT OF IMMUNOHISTOCHEMICAL STUDY FOR HELICOBACTER PYLORI OM SPECIMEN B: - NEGATIVE CPT CODE: [id number] electronically signed by Mara Barboza MD on [...] MALIGNANCY SEEN Signing Pathologist Direct Phone Line: [phone] X [phone]; [phone] X [phone]. Polyp, duodenum. B. Stomach antrum. [...] incorporatedin the diagnostic report above:AMBER X 2POCT-GLUCOSE [id number] 12:41 :00 Test Item Value Reference Range Comments POC-GLUCOSE METER (BEAKER) 75 mg/dL 70-110 TESTED AT [facility] [address] (test ibge=6455) [facility] [address] BLOOD [id number] 06:00:00 Test Item Value Reference Range Comments CULTURE (BEAKER) (test ovpb=3167) No growth in 5 days BLOOD [id number] 06:00:00 Test Item Value Reference Range Comments CULTURE (BEAKER) (test qcqs=2396) No growth in 5 days POCT-GLUCOSE [id number] 12:32:00 Test Item Value Reference Range Comments POC-GLUCOSE METER (BEAKER) 217 mg/dL 70-110 TESTED AT [facility] [address] (test npnq=6202) [facility] [address] POCT-GLUCOSE [id number] 08:36:00 Test Item Value Reference Range Comments POC-GLUCOSE METER (BEAKER) 92 mg/dL 70-110 TESTED AT [facility] [address] (test nrze=5083) [facility] [address] COMPREHENSIVE METABOLIC [id number] 04:59:00 Test Item Value Reference Range Comments TOTAL PROTEIN (BEAKER) 5.2 gm/dL 6.0-8.3 (test yrjg=418) ALBUMIN (BEAKER) (test 3.0 g/dL 3.5-5.0 rjpm=2254) ALKALINE PHOSPHATASE 39 U/L 40-150 (BEAKER) (test duwq=973) BILIRUBIN TOTAL (BEAKER) 0.4 mg/dL 0.2-1.2 (test kndm=637) SODIUM (BEAKER) (test 145 meq/L 136-145 txze=471) POTASSIUM (BEAKER) (test 3.6 meq/L 3.5-5.1 emva=388) CHLORIDE (BEAKER) (test 109 meq/L 98-107 hdat=437) CO2 (BEAKER) (test 28 meq/L 22-29 hzqg=907) BLOOD UREA NITROGEN 8 mg/dL 7-21 (BEAKER) (test miat=424) CREATININE (BEAKER) (test 0.70 mg/dL 0.57-1.25 dzxp=995) GLUCOSE RANDOM (BEAKER) 107 mg/dL 70-105 (test pgqr=585) CALCIUM (BEAKER) (test 8.4 mg/dL 8.4-10.2 vaho=823) AST (SGOT) (BEAKER) (test 9 U/L 5-34 mggl=294) ALT (SGPT) (BEAKER) (test < U/L 6-55 pkvd=537) EGFR (BEAKER) (test 81 mL/min/1.73 sq m ESTIMATED GFR IS NOT pdrz=6263) ACCURATE CREATININE CLEARANCE IN PREDICTING GLOMERULAR FILTRATION RATE. ESTIMATED GFR IS NOT APPLICABLE FOR DIALYSIS PATIENTS. [id number] 04:50:00 Test Item Value Reference Range Comments MAGNESIUM (BEAKER) (test cszq=210) 1.7 mg/dL 1.6-2.6 PROTHROMBIN [id number] 04:35:00 Test Item Value Reference Range Comments PROTIME (BEAKER) (test kksa=244) 23.7 seconds 11.7-14.7 INR (BEAKER) (test vffi=696) 2.1 <=5.9 RECOMMENDED COUMADIN/WARFARIN INR THERAPY RANGESSTANDARD DOSE: 2.0 - 3.0 Includes: PROPHYLAXIS forvenous thrombosis, systemic embolization; TREATMENT for venous thrombosis and/or pulmonary embolus.HIGH RISK: Target INR is 2.5-3.5 for patients with mechanical heart valves.CBC W/PLT COUNT & AUTO [id number] 04:24:00 Test Item Value Reference Range Comments WHITE BLOOD CELL COUNT (BEAKER) (test dxml=612) 4.8 K/ L 3.5-10.5 RED BLOOD CELL COUNT (BEAKER) (test mter=893) 3.28 M/ L 3.93-5.22 HEMOGLOBIN (BEAKER) (test hmpt=472) 10.4 GM/DL 11.2-15.7 HEMATOCRIT (BEAKER) (test mbao=280) 32.7 % 34.1-44.9 MEAN CORPUSCULAR VOLUME (BEAKER) (test jfxt=723) 99.7 fL 79.4-94.8 MEAN CORPUSCULAR HEMOGLOBIN (BEAKER) (test 31.7 pg 25.6-32.2 zjyh=306) MEAN CORPUSCULAR HEMOGLOBIN CONC (BEAKER) (test 31.8 GM/DL 32.2-35.5 xtoz=600) RED CELL DISTRIBUTION WIDTH (BEAKER) (test 14.7 % 11.7-14.4 raxu=490) PLATELET COUNT (BEAKER) (test qppk=938) 141 K/CU MM 150-450 MEAN PLATELET VOLUME (BEAKER) (test zxhr=475) 11.2 fL 9.4-12.3 NUCLEATED RED BLOOD CELLS (BEAKER) (test 0 /100 WBC 0-0 mbtj=360) NEUTROPHILS RELATIVE PERCENT (BEAKER) (test 67 % xowl=728) LYMPHOCYTES RELATIVE PERCENT (BEAKER) (test 26 % wgpu=202) MONOCYTES RELATIVE PERCENT (BEAKER) (test 5 % duwk=994) EOSINOPHILS RELATIVE PERCENT (BEAKER) (test 1 % gdgo=251) BASOPHILS RELATIVE PERCENT (BEAKER) (test 0 % fvnh=841) NEUTROPHILS ABSOLUTE COUNT (BEAKER) (test 3.21 K/ L 1.56-6.13 dlbe=902) LYMPHOCYTES ABSOLUTE COUNT (BEAKER) (test 1.24 K/ L 1.18-3.74 diaf=949) MONOCYTES ABSOLUTE COUNT (BEAKER) (test 0.23 K/ L 0.24-0.36 lxot=841) EOSINOPHILS ABSOLUTE COUNT (BEAKER) (test 0.06 K/ L 0.04-0.36 nokh=045) BASOPHILS ABSOLUTE COUNT (BEAKER) (test 0.02 K/ L 0.01-0.08 uykv=437) IMMATURE GRANULOCYTES-RELATIVE PERCENT (BEAKER) 1 % 0-1 (test sztu=3338) POCT-GLUCOSE [id number] 22:13:00 Test Item Value Reference Range Comments POC-GLUCOSE METER (BEAKER) 194 mg/dL 70-110 TESTED AT [address] (test yxbs=2392) [place] [address] POCT-GLUCOSE [id number] 18:14:00 Test Item Value Reference Range Comments POC-GLUCOSE METER (BEAKER) 195 mg/dL 70-110 TESTED AT [address] (test huea=4172) [place] [id number] POCT-GLUCOSE [id number] 12:20:00 Test Item Value Reference Range Comments POC-GLUCOSE METER (BEAKER) 224 mg/dL 70-110 TESTED AT [address] (test dwww=9696) [place] [address] [id number] 08:55:00 Test Item Value Reference Range Comments LIPASE (BEAKER) (test dkqf=792) 471 U/L 8-78 POCT-GLUCOSE [id number] 08:12:00 Test Item Value Reference Range Comments POC-GLUCOSE METER (BEAKER) 128 mg/dL 70-110 TESTED AT [address] (test xlop=6775) [place] [address] [id number] 04:12:00 Test Item Value Reference Range Comments T3 TOTAL (BEAKER) (test magu=593) 41 ng/dL 48-159 T3, [id number] 04:11:00 Test Item Value Reference Range Comments T3 FREE (BEAKER) (test ihqz=312) 1.31 pg/mL 1.71-3.71 COMPREHENSIVE METABOLIC [id number] 04:01:00 Test Item Value Reference Range Comments TOTAL PROTEIN (BEAKER) 4.8 gm/dL 6.0-8.3 (test hcfg=739) ALBUMIN (BEAKER) (test 2.8 g/dL 3.5-5.0 ytpu=7005) ALKALINE PHOSPHATASE 33 U/L 40-150 (BEAKER) (test dntq=884) BILIRUBIN TOTAL (BEAKER) 0.4 mg/dL 0.2-1.2 (test eesl=649) SODIUM (BEAKER) (test 143 meq/L 136-145 zuza=509) POTASSIUM (BEAKER) (test 4.0 meq/L 3.5-5.1 rpdv=508) CHLORIDE (BEAKER) (test 110 meq/L 98-107 iuba=639) CO2 (BEAKER) (test 26 meq/L 22-29 qanb=430) BLOOD UREA NITROGEN 9 mg/dL 7-21 (BEAKER) (test ybug=328) CREATININE (BEAKER) (test 0.73 mg/dL 0.57-1.25 irkr=374) GLUCOSE RANDOM (BEAKER) 213 mg/dL 70-105 (test rzcc=813) CALCIUM (BEAKER) (test 8.2 mg/dL 8.4-10.2 kheb=496) AST (SGOT) (BEAKER) (test 8 U/L 5-34 kxlr=636) ALT (SGPT) (BEAKER) (test < U/L 6-55 lghn=451) EGFR (BEAKER) (test 77 mL/min/1.73 sq m ESTIMATED GFR IS NOT byho=9000) ACCURATE CREATININE CLEARANCE IN PREDICTING GLOMERULAR FILTRATION RATE. ESTIMATED GFR IS NOT APPLICABLE FOR DIALYSIS PATIENTS. [id number] 03:54:00 Test Item Value Reference Range Comments MAGNESIUM (BEAKER) (test fnxq=366) 1.7 mg/dL 1.6-2.6 PROTHROMBIN TIME/[id number] 03:53:00 Test Item Value Reference Range Comments PROTIME (BEAKER) (test gkwf=073) 22.4 seconds 11.7-14.7 INR (BEAKER) (test pyef=536) 2.0 <=5.9 RECOMMENDED COUMADIN/WARFARIN INR THERAPY RANGESSTANDARD DOSE: 2.0 - 3.0 Includes: PROPHYLAXIS forvenous thrombosis, systemic embolization; TREATMENT for venous thrombosis and/or pulmonary embolus.HIGH RISK: Target INR is 2.5-3.5 for patients with mechanical heart valves.CBC W/PLT COUNT & AUTO [id number] 03:46:00 Test Item Value Reference Range Comments WHITE BLOOD CELL COUNT (BEAKER) (test dcqk=896) 5.3 K/ L 3.5-10.5 RED BLOOD CELL COUNT (BEAKER) (test fkuc=875) 3.04 M/ L 3.93-5.22 HEMOGLOBIN (BEAKER) (test kwjb=970) 9.7 GM/DL 11.2-15.7 HEMATOCRIT (BEAKER) (test xudf=046) 30.6 % 34.1-44.9 MEAN CORPUSCULAR VOLUME (BEAKER) (test cojo=997) 100.7 fL 79.4-94.8 MEAN CORPUSCULAR HEMOGLOBIN (BEAKER) (test 31.9 pg 25.6-32.2 xvrq=505) MEAN CORPUSCULAR HEMOGLOBIN CONC (BEAKER) (test 31.7 GM/DL 32.2-35.5 bbak=205) RED CELL DISTRIBUTION WIDTH (BEAKER) (test 14.6 % 11.7-14.4 afhx=791) PLATELET COUNT (BEAKER) (test fven=526) 135 K/CU MM 150-450 MEAN PLATELET VOLUME (BEAKER) (test jfhe=727) 11.4 fL 9.4-12.3 NUCLEATED RED BLOOD CELLS (BEAKER) (test 0 /100 WBC 0-0 sdld=188) NEUTROPHILS RELATIVE PERCENT (BEAKER) (test 76 % zukw=424) LYMPHOCYTES RELATIVE PERCENT (BEAKER) (test 19 % ygvc=796) MONOCYTES RELATIVE PERCENT (BEAKER) (test 3 % hjei=241) EOSINOPHILS RELATIVE PERCENT (BEAKER) (test 0 % flsd=823) BASOPHILS RELATIVE PERCENT (BEAKER) (test 0 % pbbf=331) NEUTROPHILS ABSOLUTE COUNT (BEAKER) (test 4.02 K/ L 1.56-6.13 wmps=063) LYMPHOCYTES ABSOLUTE COUNT (BEAKER) (test 1.01 K/ L 1.18-3.74 qoic=744) MONOCYTES ABSOLUTE COUNT (BEAKER) (test 0.15 K/ L 0.24-0.36 xici=305) EOSINOPHILS ABSOLUTE COUNT (BEAKER) (test 0.01 K/ L 0.04-0.36 joko=509) BASOPHILS ABSOLUTE COUNT (BEAKER) (test 0.01 K/ L 0.01-0.08 zmjm=306) IMMATURE GRANULOCYTES-RELATIVE PERCENT (BEAKER) 1 % 0-1 (test yhbz=9542) POCT-GLUCOSE [id number] 22:34:00 Test Item Value Reference Range Comments POC-GLUCOSE METER (BEAKER) 252 mg/dL 70-110 TESTED AT [address] (test gitp=7843) [place] [address] [id number] 19:36:00 Test Item Value Reference Range Comments MAGNESIUM (BEAKER) (test vbtx=406) 1.6 mg/dL 1.6-2.6 BASIC METABOLIC [id number] 19:36:00 Test Item Value Reference Range Comments SODIUM (BEAKER) (test 143 meq/L 136-145 stey=895) POTASSIUM (BEAKER) (test 4.1 meq/L 3.5-5.1 wsol=919) CHLORIDE (BEAKER) (test 109 meq/L 98-107 abbv=619) CO2 (BEAKER) (test 24 meq/L 22-29 mzmv=102) BLOOD UREA NITROGEN 9 mg/dL 7-21 (BEAKER) (test nhey=229) CREATININE (BEAKER) (test 0.74 mg/dL 0.57-1.25 hzyz=957) GLUCOSE RANDOM (BEAKER) 249 mg/dL 70-105 (test oqrp=128) CALCIUM (BEAKER) (test 8.1 mg/dL 8.4-10.2 gebw=754) EGFR (BEAKER) (test 76 mL/min/1.73 sq m ESTIMATED GFR IS NOT iumy=3589) ACCURATE CREATININE CLEARANCE IN PREDICTING GLOMERULAR FILTRATION RATE. ESTIMATED GFR IS NOT APPLICABLE FOR DIALYSIS PATIENTS. URINE [id number] 11:51:00 Test Item Value Reference Range Comments CULTURE (BEAKER) (test gfev=2281) No growth POCT-GLUCOSE [id number] 11:42:00 Test Item Value Reference Range Comments POC-GLUCOSE METER (BEAKER) 205 mg/dL 70-110 TESTED AT [address] (test etbj=3894) [place] [id number] POCT-GLUCOSE [id number] 08:08:00 Test Item Value Reference Range Comments POC-GLUCOSE METER (BEAKER) 119 mg/dL 70-110 TESTED AT [address] (test eggf=2179) [place] [id number] C. DIFFICILE GDH [id number] 07:40:00 Test Item Value Reference Range Comments CDT TOXIN (test Negative Negative akak=[id number]) CDT GDH ANTIGEN (test Positive Negative C. difficile present but toxin ymqt=[id number]) not detected. Indicates colonization with non-toxigenic strain or level of toxin below detectable levels. No need for enteric isolation. Treatment is rarely needed (only when strong clinical suspicion for Clostridium difficile infection) Testing performed by [employer] ([employer]) Rapid Cassette Assay. For GDH, published sensitivity of the assay is 98.7% compared to cytotoxicity testing. For Toxin AB, published sensitivity is 87.8% and specificity 99.4% compared to cytotoxicity testing.Verification of kit performance was done by the [facility] Microbiology Lab prior to clinical use.POCT-GLUCOSE [id number] 06:37:00 Test Item Value Reference Range Comments POC-GLUCOSE METER (BEAKER) 141 mg/dL 70-110 TESTED AT [address] (test ylsg=9723) [place] [address] COMPREHENSIVE METABOLIC [id number] 04:48:00 Test Item Value Reference Range Comments TOTAL PROTEIN (BEAKER) 4.7 gm/dL 6.0-8.3 (test rqgf=116) ALBUMIN (BEAKER) (test 2.7 g/dL 3.5-5.0 qckq=5294) ALKALINE PHOSPHATASE 33 U/L 40-150 (BEAKER) (test dqnu=352) BILIRUBIN TOTAL (BEAKER) 0.4 mg/dL 0.2-1.2 (test zodb=917) SODIUM (BEAKER) (test 145 meq/L 136-145 uybo=557) POTASSIUM (BEAKER) (test 3.7 meq/L 3.5-5.1 elfb=959) CHLORIDE (BEAKER) (test 110 meq/L 98-107 axtu=114) CO2 (BEAKER) (test 28 meq/L 22-29 yrtz=514) BLOOD UREA NITROGEN 11 mg/dL 7-21 (BEAKER) (test nqgn=348) CREATININE (BEAKER) (test 0.74 mg/dL 0.57-1.25 guvj=151) GLUCOSE RANDOM (BEAKER) 137 mg/dL 70-105 (test srgn=613) CALCIUM (BEAKER) (test 8.2 mg/dL 8.4-10.2 zrsi=793) AST (SGOT) (BEAKER) (test 8 U/L 5-34 cjnh=065) ALT (SGPT) (BEAKER) (test < U/L 6-55 fwwy=879) EGFR (BEAKER) (test 76 mL/min/1.73 sq m ESTIMATED GFR IS NOT ceve=8698) ACCURATE CREATININE CLEARANCE IN PREDICTING GLOMERULAR FILTRATION RATE. ESTIMATED GFR IS NOT APPLICABLE FOR DIALYSIS PATIENTS. PROTHROMBIN [id number] 04:40:00 Test Item Value Reference Range Comments PROTIME (BEAKER) (test zlih=039) 23.8 seconds 11.7-14.7 INR (BEAKER) (test qiem=219) 2.1 <=5.9 RECOMMENDED COUMADIN/WARFARIN INR THERAPY RANGESSTANDARD DOSE: 2.0 - 3.0 Includes: PROPHYLAXIS forvenous thrombosis, systemic embolization; TREATMENT for venous thrombosis and/or pulmonary embolus.HIGH RISK: Target INR is 2.5-3.5 for patients with mechanical heart valves.While on warfarin.[id number] 04:29:00 Test Item Value Reference Range Comments MAGNESIUM (BEAKER) (test hafw=843) 2.0 mg/dL 1.6-2.6 CBC W/PLT COUNT & AUTO [id number] 04:11:00 Test Item Value Reference Range Comments WHITE BLOOD CELL COUNT (BEAKER) (test eock=952) 5.8 K/ L 3.5-10.5 RED BLOOD CELL COUNT (BEAKER) (test fujw=273) 3.18 M/ L 3.93-5.22 HEMOGLOBIN (BEAKER) (test ucyo=231) 10.0 GM/DL 11.2-15.7 HEMATOCRIT (BEAKER) (test htgo=803) 31.8 % 34.1-44.9 MEAN CORPUSCULAR VOLUME (BEAKER) (test gjfb=350) 100.0 fL 79.4-94.8 MEAN CORPUSCULAR HEMOGLOBIN (BEAKER) (test 31.4 pg 25.6-32.2 cnrp=838) MEAN CORPUSCULAR HEMOGLOBIN CONC (BEAKER) (test 31.4 GM/DL 32.2-35.5 pifp=339) RED CELL DISTRIBUTION WIDTH (BEAKER) (test 14.9 % 11.7-14.4 inkt=177) PLATELET COUNT (BEAKER) (test gjcd=132) 141 K/CU MM 150-450 MEAN PLATELET VOLUME (BEAKER) (test mcde=779) 11.3 fL 9.4-12.3 NUCLEATED RED BLOOD CELLS (BEAKER) (test 0 /100 WBC 0-0 cekj=273) NEUTROPHILS RELATIVE PERCENT (BEAKER) (test 71 % estk=331) LYMPHOCYTES RELATIVE PERCENT (BEAKER) (test 23 % zduo=311) MONOCYTES RELATIVE PERCENT (BEAKER) (test 4 % pjyz=539) EOSINOPHILS RELATIVE PERCENT (BEAKER) (test 0 % iort=224) BASOPHILS RELATIVE PERCENT (BEAKER) (test 0 % buyy=652) NEUTROPHILS ABSOLUTE COUNT (BEAKER) (test 4.14 K/ L 1.56-6.13 qlha=090) LYMPHOCYTES ABSOLUTE COUNT (BEAKER) (test 1.34 K/ L 1.18-3.74 honh=504) MONOCYTES ABSOLUTE COUNT (BEAKER) (test 0.23 K/ L 0.24-0.36 pwto=341) EOSINOPHILS ABSOLUTE COUNT (BEAKER) (test 0.02 K/ L 0.04-0.36 dncr=040) BASOPHILS ABSOLUTE COUNT (BEAKER) (test 0.02 K/ L 0.01-0.08 jmrt=536) IMMATURE GRANULOCYTES-RELATIVE PERCENT (BEAKER) 1 % 0-1 (test atde=7707) POCT-GLUCOSE [id number] 22:19:00 Test Item Value Reference Range Comments POC-GLUCOSE METER (BEAKER) 266 mg/dL 70-110 TESTED AT [facility] [address] (test rgxn=0304) [facility] [address] [id number] 17:54:00 Test Item Value Reference Range Comments POTASSIUM (BEAKER) (test ijfv=932) 4.2 meq/L 3.5-5.1 [id number] 17:23:00 Test Item Value Reference Range Comments MAGNESIUM (BEAKER) (test fxbs=124) 1.7 mg/dL 1.6-2.6 POCT-GLUCOSE [id number] 12:41:00 Test Item Value Reference Range Comments POC-GLUCOSE METER (BEAKER) 111 mg/dL 70-110 TESTED AT [address] (test ggfi=2132) [facility] [address] [id number] 12:40:00 Test Item Value Reference Range Comments POTASSIUM (BEAKER) (test fkaz=954) 3.5 meq/L 3.5-5.1 POCT-GLUCOSE [id number] 10:05:00 Test Item Value Reference Range Comments POC-GLUCOSE METER (BEAKER) 94 mg/dL 70-110 TESTED AT [address] (test ciez=4904) [facility] [address] COMPREHENSIVE METABOLIC [id number] 05:47:00 Test Item Value Reference Range Comments TOTAL PROTEIN (BEAKER) 4.7 gm/dL 6.0-8.3 (test mfyd=643) ALBUMIN (BEAKER) (test 2.7 g/dL 3.5-5.0 kdbu=1495) ALKALINE PHOSPHATASE 31 U/L 40-150 (BEAKER) (test qwvm=563) BILIRUBIN TOTAL (BEAKER) 0.5 mg/dL 0.2-1.2 (test swsj=641) SODIUM (BEAKER) (test 147 meq/L 136-145 ulli=444) POTASSIUM (BEAKER) (test 2.9 meq/L 3.5-5.1 mvrm=462) CHLORIDE (BEAKER) (test 110 meq/L 98-107 oyku=127) CO2 (BEAKER) (test 27 meq/L 22-29 lyre=969) BLOOD UREA NITROGEN 10 mg/dL 7-21 (BEAKER) (test wiro=003) CREATININE (BEAKER) (test 0.70 mg/dL 0.57-1.25 ukuv=002) GLUCOSE RANDOM (BEAKER) 86 mg/dL 70-105 (test jmip=108) CALCIUM (BEAKER) (test 7.9 mg/dL 8.4-10.2 eyjb=928) AST (SGOT) (BEAKER) (test 9 U/L 5-34 exeq=610) ALT (SGPT) (BEAKER) (test < U/L 6-55 uevc=173) EGFR (BEAKER) (test 81 mL/min/1.73 sq m ESTIMATED GFR IS NOT rarb=5479) ACCURATE CREATININE CLEARANCE IN PREDICTING GLOMERULAR FILTRATION RATE. ESTIMATED GFR IS NOT APPLICABLE FOR DIALYSIS PATIENTS. [id number] 05:44:00 Test Item Value Reference Range Comments MAGNESIUM (BEAKER) (test avge=070) 2.0 mg/dL 1.6-2.6 PROTHROMBIN [id number] 05:37:00 Test Item Value Reference Range Comments PROTIME (BEAKER) (test xzpi=633) 24.0 seconds 11.7-14.7 INR (BEAKER) (test cxbe=910) 2.2 <=5.9 RECOMMENDED COUMADIN/WARFARIN INR THERAPY RANGESSTANDARD DOSE: 2.0 - 3.0 Includes: PROPHYLAXIS forvenous thrombosis, systemic embolization; TREATMENT for venous thrombosis and/or pulmonary embolus.HIGH RISK: Target INR is 2.5-3.5 for patients with mechanical heart valves.PROTHROMBIN [id number] 05:36: 00 Test Item Value Reference Range Comments PROTIME (BEAKER) (test emqh=881) 24.2 seconds 11.7-14.7 INR (BEAKER) (test zkwa=971) 2.2 <=5.9 RECOMMENDED COUMADIN/WARFARIN INR THERAPY RANGESSTANDARD DOSE: 2.0 - 3.0 Includes: PROPHYLAXIS forvenous thrombosis, systemic embolization; TREATMENT for venous thrombosis and/or pulmonary embolus.HIGH RISK: Target INR is 2.5-3.5 for patients with mechanical heart valves.While on warfarin.CBC W/PLT COUNT &amp ; AUTO [id number] 05:35:00 Test Item Value Reference Range Comments WHITE BLOOD CELL COUNT (BEAKER) (test rqeo=221) 4.3 K/ L 3.5-10.5 RED BLOOD CELL COUNT (BEAKER) (test kpyy=654) 3.29 M/ L 3.93-5.22 HEMOGLOBIN (BEAKER) (test fekv=702) 10.3 GM/DL 11.2-15.7 HEMATOCRIT (BEAKER) (test imeo=295) 33.2 % 34.1-44.9 MEAN CORPUSCULAR VOLUME (BEAKER) (test plcq=850) 100.9 fL 79.4-94.8 MEAN CORPUSCULAR HEMOGLOBIN (BEAKER) (test 31.3 pg 25.6-32.2 pshd=993) MEAN CORPUSCULAR HEMOGLOBIN CONC (BEAKER) (test 31.0 GM/DL 32.2-35.5 ytfc=407) RED CELL DISTRIBUTION WIDTH (BEAKER) (test 14.9 % 11.7-14.4 tjni=565) PLATELET COUNT (BEAKER) (test bbxq=941) 138 K/CU MM 150-450 MEAN PLATELET VOLUME (BEAKER) (test nppm=576) 11.5 fL 9.4-12.3 NUCLEATED RED BLOOD CELLS (BEAKER) (test 0 /100 WBC 0-0 bckf=049) NEUTROPHILS RELATIVE PERCENT (BEAKER) (test 66 % jspj=924) LYMPHOCYTES RELATIVE PERCENT (BEAKER) (test 27 % eqjl=085) MONOCYTES RELATIVE PERCENT (BEAKER) (test 4 % vpni=232) EOSINOPHILS RELATIVE PERCENT (BEAKER) (test 1 % euus=193) BASOPHILS RELATIVE PERCENT (BEAKER) (test 0 % ndtz=843) NEUTROPHILS ABSOLUTE COUNT (BEAKER) (test 2.82 K/ L 1.56-6.13 udky=763) LYMPHOCYTES ABSOLUTE COUNT (BEAKER) (test 1.16 K/ L 1.18-3.74 yaxu=615) MONOCYTES ABSOLUTE COUNT (BEAKER) (test 0.18 K/ L 0.24-0.36 qarn=937) EOSINOPHILS ABSOLUTE COUNT (BEAKER) (test 0.06 K/ L 0.04-0.36 bwds=427) BASOPHILS ABSOLUTE COUNT (BEAKER) (test 0.01 K/ L 0.01-0.08 ojri=545) IMMATURE GRANULOCYTES-RELATIVE PERCENT (BEAKER) 1 % 0-1 (test kdhn=5772) POCT-GLUCOSE [id number] 23:56:00 Test Item Value Reference Range Comments POC-GLUCOSE METER (BEAKER) 105 mg/dL 70-110 TESTED AT [facility] [address] (test qusj=8554) [facility] [address] TROPONIN [id number] 13:02:00 Test Item Value Reference Range Comments TROPONIN I (BEAKER) (test lxss=254) 0.02 ng/mL 0.00-0.03 Troponin I (TnI) levels [...] NATRIURETIC PEPTIDE (BEAKER) (test 975 pg/mL 0-100 ndpu=667) POCT-GLUCOSE [id number] 12:18:00 Test Item Value Reference Range Comments POC-GLUCOSE METER (BEAKER) 175 mg/dL 70-110 TESTED AT [facility] [address] (test degs=0501) [facility] [address] U/S, ABDOMINAL, [id number] 10:23:00Abdomen limited area? Add comment if clarification [...] MDReport Verified Date/Time: 01/14/2018 10:23:02 Reading Location: [facility] C013X Ortho Consult Reading Room T4, [id number] 08:42 :00 Test Item Value Reference Range Comments FREE T4 (BEAKER) (test udhi=459) 0.83 ng/dL 0.70-1.48 POCT-GLUCOSE [id number] 08:37:00 Test Item Value Reference Range Comments POC-GLUCOSE METER (BEAKER) 161 mg/dL 70-110 TESTED AT [facility] [address] [place] [address] (test rjmj=8092) [facility] [address] TSH/FREE T4 IF [id number] 08:05:00 Test Item Value Reference Range Comments THYROID STIMULATING HORMONE (BEAKER) (test 0.02 uIU/mL 0.35-4.94 nfgf=298) VITAMIN B12 AND [id number] 07:42:00 Test Item Value Reference Range Comments VITAMIN B12 (BEAKER) (test tmzv=166) 1276 pg/mL 213-816 FOLATE (BEAKER) (test bink=740) 8.8 ng/mL >=7.0 LIPID [id number] 07:14:00 Test Item Value Reference Range Comments TRIGLYCERIDES (BEAKER) (test jxeu=815) 171 mg/dL CHOLESTEROL (BEAKER) (test lsjx=253) 123 mg/dL HDL CHOLESTEROL (BEAKER) (test pbcn=730) 25 mg/dL LDL CHOLESTEROL CALCULATED (BEAKER) (test 64 mg/dL avfu=451) Triglyceride Reference Range: Low Risk <150 Borderline 150- 199 High Risk 200-499 Very High Risk >=500Cholesterol Reference Range: Low Risk <200 Borderline 200-239 High Risk > 240HDL Cholesterol Reference Range: Low Risk >=60 High Risk <40LDL Cholesterol Reference Range: Optimal <100 Near Optimal 100-129 Borderline 130-159 High 160-189 Very High >=190TROPONIN [id number] 07:12:00 Test Item Value Reference Range Comments TROPONIN I (BEAKER) (test tgtc=039) 0.03 ng/mL 0.00-0.03 Troponin I (TnI) levels [...] acute neurological disease, and persistent tachyarrhythmia.URINALYSIS W/ [id number] 06: 35:00 Test Item Value Reference Range Comments COLOR (BEAKER) (test mcuw=888) Yellow CLARITY (BEAKER) (test ltat=414) Clear SPECIFIC GRAVITY UA (BEAKER) (test ysor=013) 1.043 1.001-1.035 PH UA (BEAKER) (test ozbx=068) 6.5 5.0-8.0 PROTEIN UA (BEAKER) (test dcyv=327) 20 mg/dL Negative GLUCOSE UA (BEAKER) (test ewwc=085) 1000 mg/dL Negative KETONES UA (BEAKER) (test nwuq=655) Negative Negative BILIRUBIN UA (BEAKER) (test vztm=978) Negative Negative BLOOD UA (BEAKER) (test uyof=462) Trace Negative NITRITE UA (BEAKER) (test qqqf=057) Negative Negative LEUKOCYTE ESTERASE UA (BEAKER) (test iddj=552) Negative Negative UROBILINOGEN UA (BEAKER) (test csby=566) 0.2 mg/dL 0.2-1.0 RBC UA (BEAKER) (test dqow=720) 1 /HPF WBC UA (BEAKER) (test mgnt=932) 3 /HPF BACTERIA (BEAKER) (test wjjc=363) Rare SOURCE(BEAKER) (test jpcd=5962) Urine, Taylor [id number] 06:07:00 Test Item Value Reference Range Comments MAGNESIUM (BEAKER) (test xcqq=765) 1.8 mg/dL 1.6-2.6 [id number] 05:32:00 Test Item Value Reference Range Comments MAGNESIUM (BEAKER) (test tiqt=901) 2.5 mg/dL 1.6-2.6 COMPREHENSIVE METABOLIC [id number] 05:32:00 Test Item Value Reference Range Comments TOTAL PROTEIN (BEAKER) 5.1 gm/dL 6.0-8.3 (test szzw=535) ALBUMIN (BEAKER) (test 2.9 g/dL 3.5-5.0 ziem=0430) ALKALINE PHOSPHATASE 31 U/L 40-150 (BEAKER) (test zoxz=637) BILIRUBIN TOTAL (BEAKER) 0.4 mg/dL 0.2-1.2 (test kcpj=287) SODIUM (BEAKER) (test 145 meq/L 136-145 puur=291) POTASSIUM (BEAKER) (test 4.0 meq/L 3.5-5.1 kden=417) CHLORIDE (BEAKER) (test 110 meq/L 98-107 soqx=249) CO2 (BEAKER) (test 28 meq/L 22-29 oely=784) BLOOD UREA NITROGEN 14 mg/dL 7-21 (BEAKER) (test aikz=578) CREATININE (BEAKER) (test 0.71 mg/dL 0.57-1.25 dtno=045) GLUCOSE RANDOM (BEAKER) 187 mg/dL 70-105 (test xqzo=338) CALCIUM (BEAKER) (test 8.1 mg/dL 8.4-10.2 icel=563) AST (SGOT) (BEAKER) (test 9 U/L 5-34 cswm=033) ALT (SGPT) (BEAKER) (test 6 U/L 6-55 zzds=181) EGFR (BEAKER) (test 79 mL/min/1.73 sq m ESTIMATED GFR IS NOT attr=3110) ACCURATE CREATININE CLEARANCE IN PREDICTING GLOMERULAR FILTRATION RATE. ESTIMATED GFR IS NOT APPLICABLE FOR DIALYSIS PATIENTS. PROTHROMBIN [id number] 05:10:00 Test Item Value Reference Range Comments PROTIME (BEAKER) (test tiwu=521) 25.1 seconds 11.7-14.7 INR (BEAKER) (test vitw=807) 2.3 <=5.9 RECOMMENDED COUMADIN/WARFARIN INR THERAPY RANGESSTANDARD DOSE: 2.0 - 3.0 Includes: PROPHYLAXIS forvenous thrombosis, systemic embolization; TREATMENT for venous thrombosis and/or pulmonary embolus.HIGH RISK: Target INR is 2.5-3.5 for patients with mechanical heart valves.CBC W/PLT COUNT & AUTO [id number] 05:03:00 Test Item Value Reference Range Comments WHITE BLOOD CELL COUNT (BEAKER) (test rgnf=853) 5.6 K/ L 3.5-10.5 RED BLOOD CELL COUNT (BEAKER) (test fitw=398) 3.19 M/ L 3.93-5.22 HEMOGLOBIN (BEAKER) (test leyu=807) 10.1 GM/DL 11.2-15.7 HEMATOCRIT (BEAKER) (test hjtg=459) 31.5 % 34.1-44.9 MEAN CORPUSCULAR VOLUME (BEAKER) (test rjto=006) 98.7 fL 79.4-94.8 MEAN CORPUSCULAR HEMOGLOBIN (BEAKER) (test 31.7 pg 25.6-32.2 lgzt=906) MEAN CORPUSCULAR HEMOGLOBIN CONC (BEAKER) (test 32.1 GM/DL 32.2-35.5 lxgp=236) RED CELL DISTRIBUTION WIDTH (BEAKER) (test 14.6 % 11.7-14.4 mopb=258) PLATELET COUNT (BEAKER) (test yqxe=347) 141 K/CU MM 150-450 MEAN PLATELET VOLUME (BEAKER) (test etmv=277) 11.6 fL 9.4-12.3 NUCLEATED RED BLOOD CELLS (BEAKER) (test 0 /100 WBC 0-0 kctq=712) NEUTROPHILS RELATIVE PERCENT (BEAKER) (test 71 % tlut=658) LYMPHOCYTES RELATIVE PERCENT (BEAKER) (test 22 % vumw=482) MONOCYTES RELATIVE PERCENT (BEAKER) (test 5 % pgam=960) EOSINOPHILS RELATIVE PERCENT (BEAKER) (test 0 % iksh=845) BASOPHILS RELATIVE PERCENT (BEAKER) (test 0 % cisd=530) NEUTROPHILS ABSOLUTE COUNT (BEAKER) (test 4.00 K/ L 1.56-6.13 vrdb=848) LYMPHOCYTES ABSOLUTE COUNT (BEAKER) (test 1.25 K/ L 1.18-3.74 uhrw=415) MONOCYTES ABSOLUTE COUNT (BEAKER) (test 0.26 K/ L 0.24-0.36 zlbu=926) EOSINOPHILS ABSOLUTE COUNT (BEAKER) (test 0.02 K/ L 0.04-0.36 fifr=664) BASOPHILS ABSOLUTE COUNT (BEAKER) (test 0.01 K/ L 0.01-0.08 smxz=108) IMMATURE GRANULOCYTES-RELATIVE PERCENT (BEAKER) 1 % 0-1 (test hipd=2754) [id number] 02:52:00 Test Item Value Reference Range Comments PROCALCITONIN (BEAKER) (test eufw=9271) 0.41 ng/mL <0.05 SEPSIS RISK (ng/mL)Low: 0.05-0.50Intermediate: 0.51-2.00High: & gt;=2.01LACTIC ACID, VENOUS, WHOLE [id number] 02:06:00 Test Item Value Reference Range Comments LACTATE BLOOD VENOUS (2) 1.3 mmol/L 0.5-2.2 Specimen slightly hemolyzed (BEAKER) (test stui=6266) Effective 01/07/2016: Units/Reference Range ChangeNew: 0.5-2.2 mmol/L Previous: 5 -20 mg/dLCOMPREHENSIVE METABOLIC [id number] 02:06:00 Test Item Value Reference Range Comments TOTAL PROTEIN (BEAKER) 5.2 gm/dL 6.0-8.3 (test zlfb=559) ALBUMIN (BEAKER) (test 3.0 g/dL 3.5-5.0 cmov=1066) ALKALINE PHOSPHATASE 31 U/L 40-150 (BEAKER) (test hbnc=036) BILIRUBIN TOTAL (BEAKER) 0.4 mg/dL 0.2-1.2 (test gvtx=744) SODIUM (BEAKER) (test 143 meq/L 136-145 cznz=249) POTASSIUM (BEAKER) (test 2.9 meq/L 3.5-5.1 yknk=873) CHLORIDE (BEAKER) (test 109 meq/L 98-107 rxhq=635) CO2 (BEAKER) (test 27 meq/L 22-29 tdgg=722) BLOOD UREA NITROGEN 15 mg/dL 7-21 (BEAKER) (test waki=308) CREATININE (BEAKER) (test 0.70 mg/dL 0.57-1.25 fvao=050) GLUCOSE RANDOM (BEAKER) 215 mg/dL 70-105 (test amot=049) CALCIUM (BEAKER) (test 7.9 mg/dL 8.4-10.2 krve=252) AST (SGOT) (BEAKER) (test 10 U/L 5-34 xkdq=538) ALT (SGPT) (BEAKER) (test 7 U/L 6-55 qvnq=618) EGFR (BEAKER) (test 81 mL/min/1.73 sq m ESTIMATED GFR IS NOT rsxb=0348) ACCURATE CREATININE CLEARANCE IN PREDICTING GLOMERULAR FILTRATION RATE. ESTIMATED GFR IS NOT APPLICABLE FOR DIALYSIS PATIENTS. [id number] 02:04:00 Test Item Value Reference Range Comments LIPASE (BEAKER) (test wesb=097) 730 U/L 8-78 [id number] 02:04:00 Test Item Value Reference Range Comments AMYLASE (BEAKER) (test ulzy=472) 226 U/L 25-125 PROTHROMBIN [id number] 01:45:00 Test Item Value Reference Range Comments PROTIME (BEAKER) (test lvpp=813) 23.9 seconds 11.7-14.7 INR (BEAKER) (test qkdu=271) 2.1 <=5.9 RECOMMENDED COUMADIN/WARFARIN INR THERAPY RANGESSTANDARD DOSE: 2.0 - 3.0 Includes: PROPHYLAXIS forvenous thrombosis, systemic embolization; TREATMENT for venous thrombosis and/or pulmonary embolus.HIGH RISK: Target INR is 2.5-3.5 for patients with mechanical heart valves.[id number] 01:45:00 Test Item Value Reference Range Comments PARTIAL THROMBOPLASTIN TIME (BEAKER) (test 32.4 seconds 22.5-36.0 lxia=348) CBC W/PLT COUNT & AUTO [id number] 01:38:00 Test Item Value Reference Range Comments WHITE BLOOD CELL COUNT (BEAKER) (test zvqa=749) 4.9 K/ L 3.5-10.5 RED BLOOD CELL COUNT (BEAKER) (test ssit=686) 3.21 M/ L 3.93-5.22 HEMOGLOBIN (BEAKER) (test lovo=772) 10.2 GM/DL 11.2-15.7 HEMATOCRIT (BEAKER) (test umkq=249) 31.6 % 34.1-44.9 MEAN CORPUSCULAR VOLUME (BEAKER) (test zhhg=842) 98.4 fL 79.4-94.8 MEAN CORPUSCULAR HEMOGLOBIN (BEAKER) (test 31.8 pg 25.6-32.2 ciap=960) MEAN CORPUSCULAR HEMOGLOBIN CONC (BEAKER) (test 32.3 GM/DL 32.2-35.5 ugzh=474) RED CELL DISTRIBUTION WIDTH (BEAKER) (test 14.4 % 11.7-14.4 zpjl=213) PLATELET COUNT (BEAKER) (test zcni=135) 137 K/CU MM 150-450 MEAN PLATELET VOLUME (BEAKER) (test gyyp=778) 11.9 fL 9.4-12.3 NUCLEATED RED BLOOD CELLS (BEAKER) (test 0 /100 WBC 0-0 ydet=646) NEUTROPHILS RELATIVE PERCENT (BEAKER) (test 76 % jwga=281) LYMPHOCYTES RELATIVE PERCENT (BEAKER) (test 19 % vqts=929) MONOCYTES RELATIVE PERCENT (BEAKER) (test 4 % mtjt=931) EOSINOPHILS RELATIVE PERCENT (BEAKER) (test 0 % yzin=872) BASOPHILS RELATIVE PERCENT (BEAKER) (test 0 % qsnf=267) NEUTROPHILS ABSOLUTE COUNT (BEAKER) (test 3.73 K/ L 1.56-6.13 kwnx=603) LYMPHOCYTES ABSOLUTE COUNT (BEAKER) (test 0.92 K/ L 1.18-3.74 goyk=681) MONOCYTES ABSOLUTE COUNT (BEAKER) (test 0.21 K/ L 0.24-0.36 fjue=692) EOSINOPHILS ABSOLUTE COUNT (BEAKER) (test 0.00 K/ L 0.04-0.36 ddho=416) BASOPHILS ABSOLUTE COUNT (BEAKER) (test 0.01 K/ L 0.01-0.08 vgnl=753) IMMATURE GRANULOCYTES-RELATIVE PERCENT (BEAKER) 1 % 0-1 (test gzbx=0347)
--- NOTE | 2019-11-29 13:11 | ER ---
Nurse's Notes [facility] Name: Emelia Payan Age: 79 yrs Sex: Female : 1940 Arrival Date: 11/29/2019 Time: 12:39 Bed 19 Private MD: Diagnosis: Acute contact otitis externa;Acute suppurative otitis media Presentation: 11/28 12:51 Chief complaint: Patient states: Severe R ear infection for about 2 weeks now. My ca1 doctor put me on antibiotics but it's not getting any better. He said if it doesn't get any better, I got to see Dr. Delacruz but they won't take any new patients until the 3rd of next month. Reports R ear pain. Denies cough, congestion and fever. Coronavirus screen: Patient denies fever greater than 100.4F, cough, shortness of breath, or difficulty breathing. Infection Prevention Nurse has been notified of patient in isolation for probable COVID-19. Ebola Screen: Patient negative for fever greater than or equal to 101.5 degrees Fahrenheit, and additional compatible Ebola Virus Disease symptoms Patient denies exposure to infectious person. Patient denies travel to an Ebola-affected area in the 21 days before illness onset. No symptoms or risks identified at this time. Initial Sepsis Screen: Does the patient meet any 2 criteria? No. Patient's initial sepsis screen is negative. Does the patient have a suspected source of infection? No. Patient's initial sepsis screen is negative. Risk Assessment: Do you want to hurt yourself or someone else? Patient reports no desire to harm self or others. Onset of symptoms was November 29, 2019. 12:51 Method Of Arrival: Wheelchair ca1 12:51 Acuity: EDIS 4 ca1 Triage Assessment: 13:00 General: Appears in no apparent distress. uncomfortable, Behavior is calm, cooperative, vc appropriate for age. Pain: Complains of pain in right ear. EENT: Reports pain in right ear. Historical: - Allergies: 12:56 Cipro; ca1 12:56 Xarelto; ca1 - PMHx: 12:56 adrenal insuficiency; Anxiety; Atrial Fib; CHF; Diabetes - IDDM; DVT; Hyperlipidemia; ca1 Hypertension; Hypothyroidism; Pancreatitis; - Immunization history:: Adult Immunizations up to date, Pneumococcal vaccine is up to date, Flu vaccine is up to date. - Social history:: Smoking status: Patient denies any tobacco usage or history of. - : The history from the nurse's notes was reviewed. Screenin:00 Abuse screen: Denies threats or abuse. Nutritional screening: No deficits noted. vc Tuberculosis screening: No symptoms or risk factors identified. Fall Risk None identified. Assessment: 13:00 General: Appears in no apparent distress. uncomfortable, Behavior is cooperative, vc appropriate for age. Pain: Complains of pain in right ear. Neuro: Level of Consciousness is awake, alert, obeys commands, Oriented to person, place. Cardiovascular: Capillary refill < 3 seconds Patient's skin is warm and dry. Respiratory: Respiratory effort is even, unlabored. GI: No signs and/or symptoms were reported involving the gastrointestinal system. : No signs and/or symptoms were reported regarding the genitourinary system. EENT: Reports pain in right ear. Vital Signs: 12:51 BP 118 / 61; Pulse 67; Resp 17 S; Temp 97.6(TE); Pulse Ox 97% on R/A; Weight 79.83 kg ca1 (R); Height 5 ft. 4 in. (162.56 cm) (R); Pain 8/10; 12:51 Body Mass Index 30.21 (79.83 kg, 162.56 cm) ca1 ED Course: 12:39 Patient arrived in ED. ag5 12:55 Triage completed. ca1 12:56 Arm band placed on right wrist. ca1 13:00 Patient has correct armband on for positive identification. Bed in low position. Call vc light in reach. Pulse ox on. NIBP on. 13:00 No provider procedures requiring assistance completed. Patient did not have IV access vc during this emergency room visit. 13:02 Patrick Delgado PA is PHCP. jr8 13:02 Michael Tellez MD is Attending Physician. jr8 13:10 Gabriella Delacruz MD is Referral Physician. jr8 13:22 Sarah Humphrey, ODILON is Primary Nurse. vc Administered Medications: No medications were administered Outcome: 13:00 Discharged to home via wheelchair. vc 13:00 Condition: good 13:00 Discharge instructions given to patient, Instructed on discharge instructions, follow up and referral plans. Demonstrated understanding of instructions, follow-up care. 13:10 Discharge ordered by MD. samaniego 13:43 Patient left the ED. vc Signatures: Patrick Delgado PA PA jrJosephine Pichardo RN RN ca1 Gudelia Sotomayor 5 Sarah Humphrey RN RN vc Corrections: (The following items were deleted from the chart) 18:06 14:31 The history from the nurse's notes was reviewed. aden vc
--- NOTE | 2019-11-29 13:11 | EDPHYS ---
Physician Documentation [facility] Name: Emelia Payan Age: 79 yrs Sex: Female : 1940 Arrival Date: 11/29/2019 Time: 12:39 Bed 19 Private MD: ED Physician Michael Tellez HPI: 11/28 14:31 This 79 yrs old Female presents to ER via Wheelchair with complaints of Ear jr8 Pain. 14:31 The patient presents with pain, tenderness. The complaints affect the right ear. Onset: jr8 The symptoms/episode began/occurred gradually, 2 week(s) ago. Modifying factors: The symptoms are alleviated by nothing, the symptoms are aggravated by touching. Associated signs and symptoms: The patient has no apparent associated signs or symptoms. Severity of symptoms: At their worst the symptoms were mild in the emergency department the symptoms are unchanged. The patient has not experienced similar symptoms in the past. The patient has been recently seen by a physician:. Patient stated that she was put on ear drops and bactrim for persistent ear infection. Came to ED today for continued pain. Has not been able to get into ENT as of yet . Historical: - Allergies: 12:56 Cipro; ca1 12:56 Xarelto; ca1 - PMHx: 12:56 adrenal insuficiency; Anxiety; Atrial Fib; CHF; Diabetes - IDDM; DVT; Hyperlipidemia; ca1 Hypertension; Hypothyroidism; Pancreatitis; - Immunization history:: Adult Immunizations up to date, Pneumococcal vaccine is up to date, Flu vaccine is up to date. - Social history:: Smoking status: Patient denies any tobacco usage or history of. - : The history from the nurse's notes was reviewed. ROS: 14:31 Eyes: Negative for injury, pain, redness, and discharge, Neck: Negative for injury, jr8 pain, and swelling, Cardiovascular: Negative for chest pain, palpitations, and edema, Respiratory: Negative for shortness of breath, cough, wheezing, and pleuritic chest pain, Abdomen/GI: Negative for abdominal pain, nausea, vomiting, diarrhea, and constipation, Back: Negative for injury and pain, MS/Extremity: Negative for injury and deformity, Skin: Negative for injury, rash, and discoloration, Neuro: Negative for headache, weakness, numbness, tingling, and seizure. 14:31 ENT: Positive for drainage from ear(s), ear pain. Exam: 14:31 Eyes: Pupils equal round and reactive to light, extra-ocular motions intact. Lids and jr8 lashes normal. Conjunctiva and sclera are non-icteric and not injected. Cornea within normal limits. Periorbital areas with no swelling, redness, or edema. Neck: Trachea midline, no thyromegaly or masses palpated, and no cervical lymphadenopathy. Supple, full range of motion without nuchal rigidity, or vertebral point tenderness. No Meningismus. Cardiovascular: Regular rate and rhythm with a normal S1 and S2. No gallops, murmurs, or rubs. Normal PMI, no JVD. No pulse deficits. Respiratory: Lungs have equal breath sounds bilaterally, clear to auscultation and percussion. No rales, rhonchi or wheezes noted. No increased work of breathing, no retractions or nasal flaring. Abdomen/GI: Soft, non-tender, with normal bowel sounds. No distension or tympany. No guarding or rebound. No evidence of tenderness throughout. Back: No spinal tenderness. No costovertebral tenderness. Full range of motion. Skin: Warm, dry with normal turgor. Normal color with no rashes, no lesions, and no evidence of cellulitis. MS/ Extremity: Pulses equal, no cyanosis. Neurovascular intact. Full, normal range of motion. Neuro: Awake and alert, GCS 15, oriented to person, place, time, and situation. Cranial nerves II-XII grossly intact. Motor strength 5/5 in all extremities. Sensory grossly intact. Cerebellar exam normal. Normal gait. 14:31 ENT: Exam is negative for nasal discharge, sinus tenderness, enlarged tonsils, pharyngitis, exudate, External ear(s): are unremarkable, Ear canal(s): green and yellow discharge noted occluding TM on right side. No canal erythema or swelling noted , TM's: not visable, because of discharge, Examination of the other ear shows no obvious abnormality. Vital Signs: 12:51 BP 118 / 61; Pulse 67; Resp 17 S; Temp 97.6(TE); Pulse Ox 97% on R/A; Weight 79.83 kg ca1 (R); Height 5 ft. 4 in. (162.56 cm) (R); Pain 8/10; 12:51 Body Mass Index 30.21 (79.83 kg, 162.56 cm) ca1 MDM: 13:02 Patient medically screened. jr8 13:09 Data reviewed: vital signs, nurses notes, and as a result, I will discharge patient. jr8 Data interpreted: Pulse oximetry: on room air is 100 %. Interpretation: normal. Counseling: I had a detailed discussion with the patient and/or guardian regarding: the historical points, exam findings, and any diagnostic results supporting the discharge/admit diagnosis, the need for outpatient follow up, an ENT specialist, to return to the emergency department if symptoms worsen or persist or if there are any questions or concerns that arise at home. ED course: Discussed with patient to continue drops but stop the bactrim . Administered Medications: No medications were administered Disposition: 11/29 07:06 Co-signature as Attending Physician, Michael Tellez MD I agree with the assessment and kdr plan of care. Disposition: 11/29/19 13:10 Discharged to Home. Impression: Acute contact otitis externa, Acute suppurative otitis media. - Condition is Stable. - Discharge Instructions: Otitis Media, Adult, Otitis Externa. - Prescriptions for Augmentin 875- 125 mg Oral Tablet - take 1 tablet by ORAL route every 12 hours for 10 days; 20 tablet. - Medication Reconciliation Form, Thank You Letter, Antibiotic Education, Prescription Opioid Use form. - Follow up: Gabriella Delacruz MD; When: 1 week; Reason: Recheck today's complaints, Continuance of care, Re-evaluation by your physician. - Problem is new. - Symptoms are unchanged. - Notes: Stop Bactrim Continue Drops Start Augmentin Signatures: Michael Tellez MD MD [facility] Patrick Delgado PA PA jr8 Josephine Curry RN RN ca1 Sarah Humphrey RN RN vc Corrections: (The following items were deleted from the chart) 11/28 13:10 13:10 11/29/2019 13:10 Discharged to Home. Impression: Acute contact otitis externa. jr8 Condition is Stable. Forms are Medication Reconciliation Form, Thank You Letter, Antibiotic Education, Prescription Opioid Use. Follow up: Gabriella Delacruz; When: 1 week; Reason: Recheck today's complaints, Continuance of care, Re-evaluation by your physician. Problem is new. Symptoms are unchanged. jr8 13:43 13:10 11/29/2019 13:10 Discharged to Home. Impression: Acute contact otitis externa; vc Acute suppurative otitis media. Condition is Stable. Forms are Medication Reconciliation Form, Thank You Letter, Antibiotic Education, Prescription Opioid Use. Follow up: Gabriella Delacruz; When: 1 week; Reason: Recheck today's complaints, Continuance of care, Re-evaluation by your physician. Problem is new. Symptoms are unchanged. jr8 18:06 14:31 The history from the nurse's notes was reviewed. jr8 vc
[2019-11-29 13:51] VITALS: BP 118/61; TEMP 97.6; O2SAT 97
== END 2019-11-29 13:43 | disposition home or self-care (01) ==
LOC: ER 12:35
DX: H60.531 Acute contact otitis externa, right ear (principal); H66.001 Acute suppurative otitis media without spontaneous rupture of ear drum, right ear; I10 Essential (primary) hypertension; Z88.1 Allergy status to other antibiotic agents; Z88.8 Allergy status to other drugs, medicaments and biological substances
CPT/HCPCS: 99283

== ENCOUNTER 2020-05-22 06:54 | Observation (INO) | payer OTHER ==
[~2020-05-22 06:54] MED LIST: LIOTHYRONINE SOD 5 MCG TAB PO SCH
--- OUTSIDE RECORDS SUMMARY | 2020-05-22 06:56 | XMS REPORT | Clinical Summary ---
:1940 Author Organization [facility] Address [address] [place] [address] Care Team Providers Name Role Phone Dany Iraheta MD Primary Care Provider [phone] Allergies Active Allergy Reactions Severity Noted Date Comments Ciprofloxacin Itching 01/14/2018 Rivaroxaban Other (See Comments) 01/14/2018 Interna l bleeding Medications Medication Sig Dispensed Refills Start Date End Date Status warfarin (COUMADIN) 2.5 Take 2.5 mg by 0 12/28/2017 Active MG tablet mouth daily . liothyronine (CYTOMEL) 5 Take 5 mcg by 0 11/23/2017 Active MCG tablet mouth daily . gabapentin (NEURONTIN) Take 600 mg by 0 12/19/2017 Active 600 MG tablet mouth 3 (three) times daily . levothyroxine Take 125 mcg by 0 Active (SYNTHROID, LEVOTHROID) mouth Every 125 MCG morning on an tabletIndications: a empty stomach. condition with low thyroid hormone levels glipiZIDE (GLUCOTROL XL) Take 2 tablets 30 tablet 6 01/18/2018 Active 2.5 MG 24 hr tablet (5 mg total) by mouth daily. cholecalciferol, vitamin Take 50,000 0 Active D3, 50,000 unit Tab Units by mouth once every 2 weeks. hydrocortisone (CORTEF) Take 10 mg by 0 Active 20 MG tablet mouth 2 (two) times daily . fenofibrate (TRICOR) 48 Take 48 mg by 0 Active MG tablet mouth daily. omeprazole (PRILOSEC) 40 Take 40 mg by 0 Active MG capsule mouth daily. potassium chloride Take 10 mEq by 0 Active (KLOR-CON) 10 MEQ CR mouth daily. tablet LORazepam (ATIVAN) 0.5 Take 0.5 mg by 0 Active MG tablet mouth as needed for Anxiety. somatropin 5 mg/1.5 mL Inject 0 Active (3.3 mg/mL) PnIj subcutaneously. amLODIPine (NORVASC) 5 Take 5 mg by 0 Active MG tablet mouth daily. losartan (COZAAR) 100 MG Take 100 mg by 0 Active tablet mouth daily. methscopolamine (PAMINE Take 5 mg by 0 Active FORTE) 5 MG tablet mouth nightly. Active Problems Problem Noted Date Pancreatitis 01/14/2018 Sepsis 01/14/2018 Paroxysmal A-fib 01/14/2018 Family History Medical History Relation Name Comments [...] travel history available. Last Filed Vital Signs Not on file Plan of Treatment Health Maintenance Due Date Last Done Comments PNEUMOCOCCAL 65+ LOW/MEDIUM RISK (1 of 2 - PCV13) 2003 MEDICARE ANNUAL WELLNESS (YEAR 2 or FIRST YEAR if no 07/07/2004 IPPE) INFLUENZA VACCINE (#1) 2020 Results Not on fileafter 05/22/2019 Insurance Payer Benefit Plan / Group Subscriber ID Type Phone A ddress MEDICARE MEDICARE A B xxxxxxxxxxx Medicare AETNA - MGD CARE AETNA INDEMNITY NON CONTR xxxxxxxxxx Comm Advance Directives For more information, please contact:[address] [phone] Code Status Date Activated Date Inactivated Comments Full Code 01/14/2018 12:36 AM 01/18/2018 6:55 PM This code status was determined by: Patient
--- OUTSIDE RECORDS SUMMARY | 2020-05-22 06:58 | XMS REPORT | Continuity of Care Document ---
:1940 Author Organization [facility] t Address [address] [place] [address] Care Team Providers Name Role Phone Juanpablo Iraheta MD Primary Care Physician RODNEY DEL ROSARIO Attending Clinician Unavailable LETTY HAYES Attending Clinician Unavailable ARLENE SANDOVAL Attending Clinician Unavailable LETTY HAYES Admitting Clinician Unavailable ARLENE SANDOVAL Admitting Clinician Unavailable Problems Condition Condition Condition Status Onset Resolution Last Treating Co mments Source Name Details Category Date Date Treatment Clinician Date Pancreatit Pancreatit Disease Active [facility] [place] Sepsis Sepsis Disease Active [facility] 00 [place] Paroxysmal Paroxysmal Disease Active [facility] A-fib A-fib 01[facility]14 [facility]: [facility] 00 [place] Allergies, Adverse Reactions, Alerts Allergy Allergy Status Severity Reaction(s) Onset Inactive Treating Comm ents Source Name Type Date Date Clinician Ciproflo Propensi Active Itching [facility] - adverse 00:00: Medical reaction 00 [place] [facility] Rivaroxa Drug Active Other (See Internal [facility] ban Intolera Comments) 01-14 bleeding [facility] - nce 00:00: Medical 00 [place] Family History Family Member Diagnosis Comments Start Date Stop Date Source Natural father Heart disease [facility] Natural mother Heart disease [facility] Social History Social Habit Start Date Stop Date Quantity Comments Source Sex Assigned At [facility] Smoking Status Start Date Stop Date Source Never smoker [facility] edical [place] Medications Ordered Filled Start Stop Current Ordering Indication Dosage Frequency Signature Comments Components Source Medication Medication Date Date Medication? Clinician (SIG) Name Name amLODIPine Yes 5mg QD Take [address] (NORVASC) 5 3-07 by mouth Luke s - MG tablet 12:12: daily. Medica l 27 [place] losartan Yes 100mg QD Take [address] [facility] [address] (COZAAR) 3-07 mg by [facility] - 100 MG 12:12: mouth Medical tablet 27 daily. [place] methscopola Yes 5mg QD Take [address] mine 3-07 by mouth [facility] - (PAMINE 12:12: nightly. Medica l FORTE) 5 MG 27 Center tablet hydrocortis Yes 10mg Q.5D Take [address] [facility] one 7-10 by mouth 2 [facility] - (CORTEF) 20 09:35: (two) Medic al MG tablet 53 times Center daily . somatropin Yes Inject [facility] 5 mg/1.5 mL 7-09 subcutaneo Domitila kes - (3.3 mg/mL) 14:15: usly. Medic al PnIj 03 [place] potassium Yes 10meq QD Take [address] [address] chloride 7-09 mEq by [facility] - (KLOR-CON) 14:11: mouth Medica l 10 MEQ CR 56 daily. Center tablet LORazepam Yes .5mg Take 0.[address] (ATIVAN) 7-09 mg by [facility] - 0.5 MG 14:11: mouth as Medical tablet 56 needed for Center Anxiety. cholecalcif Yes 64681S Take [facility] ghada, 7- 50,000 [facility] - vitamin D3, 14:11: Units by Ny dical 50,000 unit 55 mouth once Ce nter Tab every 2 weeks. fenofibrate Yes 48mg QD Take [address] (TRICOR) 48 7-09 by mouth Luke s - MG tablet 14:11: daily. Medica l 55 [place] omeprazole Yes 40mg QD Take [address] (PRILOSEC) 7-09 by mouth [facility] - 40 MG 14:11: daily. Medical capsule 55 Center glipiZIDE Yes 5mg QD Take [address] [facility] [address] (GLUCOTROL 5-16 tablets (5 Mindy es - XL) 2.5 MG 00:00: mg total) Me dical 24 hr 00 by mouth Center tablet daily. levothyroxi Yes a condition 125ug Take [address] ne 5-15 with low mcg by [facility] - (SYNTHROID, 13:33: thyroid mouth Me dical LEVOTHROID) 14 hormone Every Cent er 125 MCG levels morning on tablet an empty stomach. warfarin Yes 2.5mg QD Take 2.[address] (COUMADIN) 4-25 mg by [facility] - 2.5 MG 00:00: mouth Medical tablet 00 daily . Center gabapentin Yes 600mg Q.[id number] Take [address] (NEURONTIN) 4-16 [id number] mg by L ukes - 600 MG 00:00: 3D mouth 3 Medical tablet 00 (three) Center times daily . liothyronin Yes 5ug QD Take [address] e (CYTOMEL) 3-21 by mouth Luke s - 5 MCG 00:00: daily . Medical tablet 00 Center Procedures This patient has no known procedures. Plan of Care Planned Activity Planned Date Details Comments Source Future Scheduled 2020-05-06 INFLUENZA VACCINE (#1) [facility] Test 00:00:00 [code = INFLUENZA Medical Ce nter VACCINE (#1)] Future Scheduled 2004-07-[address] [facility] - Test 00:00:00 WELLNESS (YEAR 2 or Medical Center FIRST YEAR if no IPPE) [code = MEDICARE ANNUAL WELLNESS (YEAR 2 or FIRST YEAR if no IPPE)] Future Scheduled 2003 P[address]OCOCCAL [address] - Test 00:00:00 LOW/MEDIUM RISK (1 of Medica l Center 2 - PCV13) [code = PNEUMOCOCCAL 65+ LOW/MEDIUM RISK (1 of 2 - PCV13)] Results Test Description Test Time Test Comments Results Result Comments Source URINALYSIS W/ MICROSCOPIC 2018-11-09 14:50:00 Test Item Value Reference Range Interpretation Comme nts COLOR (BEAKER) (test code = 470) Yellow CLARITY (BEAKER) (test code = 469) Hazy SPECIFIC GRAVITY UA (BEAKER) (test code = 468) 1.019 1.001-1 .035 PH UA (BEAKER) (test code = 467) 6.0 5.0-8.0 PROTEIN UA (BEAKER) (test code = 464) Negative Negative GLUCOSE UA (BEAKER) (test code = 365) Negative Negative KETONES UA (BEAKER) (test code = 371) Negative Negative BILIRUBIN UA (BEAKER) (test code = 462) Negative Negative BLOOD UA (BEAKER) (test code = 461) Negative Negative NITRITE UA (BEAKER) (test code = 465) Negative Negative LEUKOCYTE ESTERASE UA (BEAKER) (test code = 466) Large Negat haile A UROBILINOGEN UA (BEAKER) (test code = 463) 0.2 mg/dL 0.2-1.0 RBC UA (BEAKER) (test code = 519) 9 /HPF WBC UA (BEAKER) (test code = 520) 17 /HPF MUCUS (BEAKER) (test code = 1574) Rare SQUAMOUS EPITHELIAL (BEAKER) (test code = 516) 11 /HPF AMORPHOUS CRYSTALS (BEAKER) (test code = 1584) Rare SOURCE(BEAKER) (test code = 2795) Urine, Voided [id number] 13:11:00 Test Item Value Reference Range Interpretation Comments LIPASE (BEAKER) (test code = 749) 45 U/L 8-78 BASIC METABOLIC [id number] 13:11:00 Test Item Value Reference Range Interpretation Comments SODIUM (BEAKER) 143 meq/L 136-145 (test code = 381) POTASSIUM (BEAKER) 3.1 meq/L 3.5-5.1 L (test code = 379) CHLORIDE (BEAKER) 110 meq/L 98-107 H (test code = 382) CO2 (BEAKER) (test 24 meq/L 22-29 code = 355) BLOOD UREA NITROGEN 24 mg/dL 7-21 H (BEAKER) (test code = 354) CREATININE (BEAKER) 0.69 mg/dL 0.57-1.25 (test code = 358) GLUCOSE RANDOM 98 mg/dL 70-105 (BEAKER) (test code = 652) CALCIUM (BEAKER) 9.0 mg/dL 8.4-10.2 (test code = 697) EGFR (BEAKER) (test 82 mL/min/1.73 ESTIMA LEESA GFR IS code = 1092) sq m NOT ACCURATE CREATININE CLEARANCE IN PREDICTING GLOMERULAR FILTRATION RATE . ESTIMATED GFR I S NOT APPLICABLE FOR DIALYSIS PATIEN TS. HEPATIC FUNCTION [id number] 13:11:00 Test Item Value Reference Range Interpretation Comments TOTAL PROTEIN (BEAKER) (test code = 5.9 gm/dL 6.0-8.3 L 770) ALBUMIN (BEAKER) (test code = 1145) 3.6 g/dL 3.5-5.0 BILIRUBIN TOTAL (BEAKER) (test code 0.6 mg/dL 0.2-1.2 = 377) BILIRUBIN DIRECT (BEAKER) (test 0.2 mg/dL 0.1-0.5 code = 706) ALKALINE PHOSPHATASE (BEAKER) (test 48 U/L 40-150 code = 346) AST (SGOT) (BEAKER) (test code = 18 U/L 5-34 353) ALT (SGPT) (BEAKER) (test code = 14 U/L 6-55 347) [id number] 13:02:00 Test Item Value Reference Range Interpretation Comments PROTIME (BEAKER) (test code = 19.5 seconds 11.7-14.7 H 759) INR (BEAKER) (test code = 370) 1.6 <=5.9 PARTIAL THROMBOPLASTIN TIME 30.3 seconds 22.5-36.0 (BEAKER) (test code = 760) RECOMMENDED COUMADIN/WARFARIN INR THERAPY RANGESSTANDARD DOSE: 2.0 - 3.0 Includes: PROPHYLAXIS forvenous thrombosis, systemic embolization; TREATMENT for venous thrombosis and/or pulmonary embolus.HIGH RISK: Target INR is 2.5-3.5 for patients with mechanical heart valves.CBC W/PLT COUNT & AUTO DIFFERENTIAL 2018-11-09 12:56:00 Test Item Value Reference Range Interpretation Comments WHITE BLOOD CELL COUNT (BEAKER) 5.6 K/ L 3.5-10.5 (test code = 775) RED BLOOD CELL COUNT (BEAKER) 3.83 M/ L 3.93-5.22 L (test code = 761) HEMOGLOBIN (BEAKER) (test code = 12.1 GM/DL 11.2-15.7 410) HEMATOCRIT (BEAKER) (test code = 36.1 % 34.1-44.9 411) MEAN CORPUSCULAR VOLUME (BEAKER) 94.3 fL 79.4-94.8 (test code = 753) MEAN CORPUSCULAR HEMOGLOBIN 31.6 pg 25.6-32.2 (BEAKER) (test code = 751) MEAN CORPUSCULAR HEMOGLOBIN CONC 33.5 GM/DL 32.2-35.5 (BEAKER) (test code = 752) RED CELL DISTRIBUTION WIDTH 14.8 % 11.7-14.4 H (BEAKER) (test code = 412) PLATELET COUNT (BEAKER) (test 139 K/CU MM 150-450 L code = 756) MEAN PLATELET VOLUME (BEAKER) 11.5 fL 9.4-12.3 (test code = 754) NUCLEATED RED BLOOD CELLS 0 /100 WBC 0-0 (BEAKER) (test code = 413) NEUTROPHILS RELATIVE PERCENT 71 % (BEAKER) (test code = 429) LYMPHOCYTES RELATIVE PERCENT 22 % (BEAKER) (test code = 430) MONOCYTES RELATIVE PERCENT 5 % (BEAKER) (test code = 431) EOSINOPHILS RELATIVE PERCENT 1 % (BEAKER) (test code = 432) BASOPHILS RELATIVE PERCENT 0 % (BEAKER) (test code = 437) NEUTROPHILS ABSOLUTE COUNT 4.01 K/ L 1.56-6.13 (BEAKER) (test code = 670) LYMPHOCYTES ABSOLUTE COUNT 1.25 K/ L 1.18-3.74 (BEAKER) (test code = 414) MONOCYTES ABSOLUTE COUNT (BEAKER) 0.29 K/ L 0.24-0.36 (test code = 415) EOSINOPHILS ABSOLUTE COUNT 0.05 K/ L 0.04-0.36 (BEAKER) (test code = 416) BASOPHILS ABSOLUTE COUNT (BEAKER) 0.02 K/ L 0.01-0.08 (test code = 417) IMMATURE GRANULOCYTES-RELATIVE 0 % 0-1 PERCENT (BEAKER) (test code = 2801) TISSUE [id number] 13:06:00Surgical Pathology Report Case: [id number] Authorizing Provider: Luiz Hayes Collected: 03/14/2018 1115 Ordering Location: [facility] Endoscopy Received: 03/14/2018 1351 Services Pathologist: Mara Barboza MD Specimens: A) -Polyp, Duodenum B) - Stomach, Antrum, bx C) - Biopsy, Gastric, gastric body D) - Biopsy, Esophagus, random THIS ADDENDUM IS ISSUED TO REPORT THE RESULT OF IMMUNOHISTOCHEMICAL STUDY FOR HELICOBACTER PYLORI OM SPECIMEN B: - NEGATIVE CPT CODE: [id number] electronically signed by Mara Barboza MD on [...] MALIGNANCY SEEN Signing Pathologist Direct Phone Line: [phone] signed by Mara Barboza MD on 03/17/2018 at 10:35 [id number] X 4; [id number] X 2A. Polyp, duodenum. B. Stomach antrum. C. Biopsy, gastric, description gastric body. D. Biopsy, esophagus,description randomPart [...] submitted in toto in one cassette (D1). M H/ewThe following special studies were performed on this case and the interpretation is incorporatedin the diagnostic report above:AMBER X 2 POCT-GLUCOSE [id number] 12:41:00 Test Item Value Reference Range Interpretation Comments POC-GLUCOSE METER 75 mg/dL 70-110 TESTED AT [place] [address] ([facility]) (test code = [facility] [address] 1538) BLOOD [id number] 06:00:00 Test Item Value Reference Range Interpretation Comments CULTURE (BEAKER) (test No growth in 5 days code = 1095) BLOOD [id number] 06:00:00 Test Item Value Reference Range Interpretation Comments CULTURE (BEAKER) (test No growth in 5 days code = 1095) POCT-GLUCOSE [id number] 12:32:00 Test Item Value Reference Range Interpretation Comments POC-GLUCOSE METER 217 mg/dL 70-110 H TESTED AT [place] [address] ([facility]) (test code = [facility] 1538) [address] POCT-GLUCOSE [id number] 08:36:00 Test Item Value Reference Range Interpretation Comments POC-GLUCOSE METER 92 mg/dL 70-110 TESTED AT [place] [address] ([facility]) (test code = [facility] [address] 1538) COMPREHENSIVE METABOLIC [id number] 04:59:00 Test Item Value Reference Range Interpretation Comments TOTAL PROTEIN 5.2 gm/dL 6.0-8.3 L (AKER) (test code = 770) ALBUMIN (AKER) 3.0 g/dL 3.5-5.0 L (test code = 1145) ALKALINE PHOSPHATASE 39 U/L 40-150 L (BEAKER) (test code = 346) BILIRUBIN TOTAL 0.4 mg/dL 0.2-1.2 (BEAKER) (test code = 377) SODIUM (BEAKER) (test 145 meq/L 136-145 code = 381) POTASSIUM (BEAKER) 3.6 meq/L 3.5-5.1 (test code = 379) CHLORIDE (BEAKER) 109 meq/L 98-107 H (test code = 382) CO2 (BEAKER) (test 28 meq/L 22-29 code = 355) BLOOD UREA NITROGEN 8 mg/dL 7-21 (BEAKER) (test code = 354) CREATININE (BEAKER) 0.70 mg/dL 0.57-1.25 (test code = 358) GLUCOSE RANDOM 107 mg/dL 70-105 H (BEAKER) (test code = 652) CALCIUM (BEAKER) 8.4 mg/dL 8.4-10.2 (test code = 697) AST (SGOT) (BEAKER) 9 U/L 5-34 (test code = 353) ALT (SGPT) (BEAKER) < U/L 6-55 L (test code = 347) EGFR (BEAKER) (test 81 mL/min/1.73 ESTIMA LEESA GFR IS code = 1092) sq m NOT ACCURATE CREATININE CLEARANCE IN PREDICTING GLOMERULAR FILTRATION RATE . ESTIMATED GFR I S NOT APPLICABLE FOR DIALYSIS PATIEN TS. [id number] 04:50:00 Test Item Value Reference Range Interpretation Comments MAGNESIUM (BEAKER) (test code = 1.7 mg/dL 1.6-2.6 627) PROTHROMBIN [id number] 04:35:00 Test Item Value Reference Range Interpretation Comments PROTIME (BEAKER) (test code = 23.7 seconds 11.7-14.7 H 759) INR (BEAKER) (test code = 370) 2.1 <=5.9 RECOMMENDED COUMADIN/WARFARIN INR THERAPY RANGESSTANDARD DOSE: 2.0 - 3.0 Includes: PROPHYLAXIS forvenous thrombosis, systemic embolization; TREATMENT for venous thrombosis and/or pulmonary embolus.HIGH RISK: Target INR is 2.5-3.5 for patients with mechanical heart valves.CBC W/PLT COUNT & AUTO DIFFERENTIAL 2018-01-18 04:24:00 Test Item Value Reference Range Interpretation Comments WHITE BLOOD CELL COUNT (BEAKER) 4.8 K/ L 3.5-10.5 (test code = 775) RED BLOOD CELL COUNT (BEAKER) 3.28 M/ L 3.93-5.22 L (test code = 761) HEMOGLOBIN (BEAKER) (test code = 10.4 GM/DL 11.2-15.7 L 410) HEMATOCRIT (BEAKER) (test code = 32.7 % 34.1-44.9 L 411) MEAN CORPUSCULAR VOLUME (BEAKER) 99.7 fL 79.4-94.8 H (test code = 753) MEAN CORPUSCULAR HEMOGLOBIN 31.7 pg 25.6-32.2 (BEAKER) (test code = 751) MEAN CORPUSCULAR HEMOGLOBIN CONC 31.8 GM/DL 32.2-35.5 L (BEAKER) (test code = 752) RED CELL DISTRIBUTION WIDTH 14.7 % 11.7-14.4 H (BEAKER) (test code = 412) PLATELET COUNT (BEAKER) (test 141 K/CU MM 150-450 L code = 756) MEAN PLATELET VOLUME (BEAKER) 11.2 fL 9.4-12.3 (test code = 754) NUCLEATED RED BLOOD CELLS 0 /100 WBC 0-0 (BEAKER) (test code = 413) NEUTROPHILS RELATIVE PERCENT 67 % (BEAKER) (test code = 429) LYMPHOCYTES RELATIVE PERCENT 26 % (BEAKER) (test code = 430) MONOCYTES RELATIVE PERCENT 5 % (BEAKER) (test code = 431) EOSINOPHILS RELATIVE PERCENT 1 % (BEAKER) (test code = 432) BASOPHILS RELATIVE PERCENT 0 % (BEAKER) (test code = 437) NEUTROPHILS ABSOLUTE COUNT 3.21 K/ L 1.56-6.13 (BEAKER) (test code = 670) LYMPHOCYTES ABSOLUTE COUNT 1.24 K/ L 1.18-3.74 (BEAKER) (test code = 414) MONOCYTES ABSOLUTE COUNT (BEAKER) 0.23 K/ L 0.24-0.36 L (test code = 415) EOSINOPHILS ABSOLUTE COUNT 0.06 K/ L 0.04-0.36 (BEAKER) (test code = 416) BASOPHILS ABSOLUTE COUNT (BEAKER) 0.02 K/ L 0.01-0.08 (test code = 417) IMMATURE GRANULOCYTES-RELATIVE 1 % 0-1 PERCENT (BEAKER) (test code = 2801) POCT-GLUCOSE [id number] 22:13:00 Test Item Value Reference Range Interpretation Comments POC-GLUCOSE METER 194 mg/dL 70-[address] [facility] [address] (BEAKER) (test code = [facility] 1538) [id number] POCT-GLUCOSE [id number] 18:14:00 Test Item Value Reference Range Interpretation Comments POC-GLUCOSE METER 195 mg/dL 70-[address] [facility] [address] (BEAKER) (test code = [facility] 1538) [id number] POCT-GLUCOSE [id number] 12:20:00 Test Item Value Reference Range Interpretation Comments POC-GLUCOSE METER 224 mg/dL 70-110 H TESTED AT [place] [address] (BEAKER) (test code = [facility] 1538) [id number] 08:55:00 Test Item Value Reference Range Interpretation Comments LIPASE (BEAKER) (test code = 749) 471 U/L 8-78 H POCT-GLUCOSE [id number] 08:12:00 Test Item Value Reference Range Interpretation Comments POC-GLUCOSE METER 128 mg/dL 70-110 H TEST[facility] AT [place] [address] [facility] (test code = [facility] 1538) [id number] 04:12:00 Test Item Value Reference Range Interpretation Comments T3 TOTAL (BEAKER) (test code = 656) 41 ng/dL 48-159 L T3, [id number] 04:11:00 Test Item Value Reference Range Interpretation Comments T3 FREE (BEAKER) (test code = 908) 1.31 pg/mL 1.71-3.71 L COMPREHENSIVE METABOLIC [id number] 04:01:00 Test Item Value Reference Range Interpretation Comments TOTAL PROTEIN 4.8 gm/dL 6.0-8.3 L (BEAKER) (test code = 770) ALBUMIN (BEAKER) 2.8 g/dL 3.5-5.0 L (test code = 1145) ALKALINE PHOSPHATASE 33 U/L 40-150 L (BEAKER) (test code = 346) BILIRUBIN TOTAL 0.4 mg/dL 0.2-1.2 (BEAKER) (test code = 377) SODIUM (BEAKER) (test 143 meq/L 136-145 code = 381) POTASSIUM (BEAKER) 4.0 meq/L 3.5-5.1 (test code = 379) CHLORIDE (BEAKER) 110 meq/L 98-107 H (test code = 382) CO2 (BEAKER) (test 26 meq/L 22-29 code = 355) BLOOD UREA NITROGEN 9 mg/dL 7-21 (BEAKER) (test code = 354) CREATININE (BEAKER) 0.73 mg/dL 0.57-1.25 (test code = 358) GLUCOSE RANDOM 213 mg/dL 70-105 H (BEAKER) (test code = 652) CALCIUM (BEAKER) 8.2 mg/dL 8.4-10.2 L (test code = 697) AST (SGOT) (BEAKER) 8 U/L 5-34 (test code = 353) ALT (SGPT) (BEAKER) < U/L 6-55 L (test code = 347) EGFR (BEAKER) (test 77 mL/min/1.73 ESTIMA LEESA GFR IS code = 1092) sq m NOT ACCURATE CREATININE CLEARANCE IN PREDICTING GLOMERULAR FILTRATION RATE . ESTIMATED GFR I S NOT APPLICABLE FOR DIALYSIS PATIEN TS. [id number] 03:54:00 Test Item Value Reference Range Interpretation Comments MAGNESIUM (BEAKER) (test code = 1.7 mg/dL 1.6-2.6 627) PROTHROMBIN [id number] 03:53:00 Test Item Value Reference Range Interpretation Comments PROTIME (BEAKER) (test code = 22.4 seconds 11.7-14.7 H 759) INR (BEAKER) (test code = 370) 2.0 <=5.9 RECOMMENDED COUMADIN/WARFARIN INR THERAPY RANGESSTANDARD DOSE: 2.0 - 3.0 Includes: PROPHYLAXIS forvenous thrombosis, systemic embolization; TREATMENT for venous thrombosis and/or pulmonary embolus.HIGH RISK: Target INR is 2.5-3.5 for patients with mechanical heart valves.CBC W/PLT COUNT & AUTO DIFFERENTIAL 2018-01-17 03:46:00 Test Item Value Reference Range Interpretation Comments WHITE BLOOD CELL COUNT (BEAKER) 5.3 K/ L 3.5-10.5 (test code = 775) RED BLOOD CELL COUNT (BEAKER) 3.04 M/ L 3.93-5.22 L (test code = 761) HEMOGLOBIN (BEAKER) (test code = 9.7 GM/DL 11.2-15.7 L 410) HEMATOCRIT (BEAKER) (test code = 30.6 % 34.1-44.9 L 411) MEAN CORPUSCULAR VOLUME (BEAKER) 100.7 fL 79.4-94.8 H (test code = 753) MEAN CORPUSCULAR HEMOGLOBIN 31.9 pg 25.6-32.2 (BEAKER) (test code = 751) MEAN CORPUSCULAR HEMOGLOBIN CONC 31.7 GM/DL 32.2-35.5 L (BEAKER) (test code = 752) RED CELL DISTRIBUTION WIDTH 14.6 % 11.7-14.4 H (BEAKER) (test code = 412) PLATELET COUNT (BEAKER) (test 135 K/CU MM 150-450 L code = 756) MEAN PLATELET VOLUME (BEAKER) 11.4 fL 9.4-12.3 (test code = 754) NUCLEATED RED BLOOD CELLS 0 /100 WBC 0-0 (BEAKER) (test code = 413) NEUTROPHILS RELATIVE PERCENT 76 % (BEAKER) (test code = 429) LYMPHOCYTES RELATIVE PERCENT 19 % (BEAKER) (test code = 430) MONOCYTES RELATIVE PERCENT 3 % (BEAKER) (test code = 431) EOSINOPHILS RELATIVE PERCENT 0 % (BEAKER) (test code = 432) BASOPHILS RELATIVE PERCENT 0 % (BEAKER) (test code = 437) NEUTROPHILS ABSOLUTE COUNT 4.02 K/ L 1.56-6.13 (BEAKER) (test code = 670) LYMPHOCYTES ABSOLUTE COUNT 1.01 K/ L 1.18-3.74 L (BEAKER) (test code = 414) MONOCYTES ABSOLUTE COUNT (BEAKER) 0.15 K/ L 0.24-0.36 L (test code = 415) EOSINOPHILS ABSOLUTE COUNT 0.01 K/ L 0.04-0.36 L (BEAKER) (test code = 416) BASOPHILS ABSOLUTE COUNT (BEAKER) 0.01 K/ L 0.01-0.08 (test code = 417) IMMATURE GRANULOCYTES-RELATIVE 1 % 0-1 PERCENT (BEAKER) (test code = 6778) POCT-GLUCOSE [id number] 22:34:00 Test Item Value Reference Range Interpretation Comments POC-GLUCOSE METER 252 mg/dL 70-[address] [facility] [address] (BEAKER) (test code = [facility] [place] 1538) [id number] 19:36:00 Test Item Value Reference Range Interpretation Comments MAGNESIUM (BEAKER) (test code = 1.6 mg/dL 1.6-2.6 627) BASIC METABOLIC [id number] 19:36:00 Test Item Value Reference Range Interpretation Comments SODIUM (BEAKER) 143 meq/L 136-145 (test code = 381) POTASSIUM (BEAKER) 4.1 meq/L 3.5-5.1 (test code = 379) CHLORIDE (BEAKER) 109 meq/L 98-107 H (test code = 382) CO2 (BEAKER) (test 24 meq/L 22-29 code = 355) BLOOD UREA NITROGEN 9 mg/dL 7-21 (BEAKER) (test code = 354) CREATININE (BEAKER) 0.74 mg/dL 0.57-1.25 (test code = 358) GLUCOSE RANDOM 249 mg/dL 70-105 H (BEAKER) (test code = 652) CALCIUM (BEAKER) 8.1 mg/dL 8.4-10.2 L (test code = 697) EGFR (BEAKER) (test 76 mL/min/1.73 ESTIMA LEESA GFR IS code = 1092) sq m NOT ACCURATE CREATININE CLEARANCE IN PREDICTING GLOMERULAR FILTRATION RATE . ESTIMATED GFR I S NOT APPLICABLE FOR DIALYSIS PATIEN TS. URINE [id number] 11:51:00 Test Item Value Reference Range Interpretation Comments CULTURE (BEAKER) (test code = 1095) No growth POCT-GLUCOSE [id number] 11:42:00 Test Item Value Reference Range Interpretation Comments POC-GLUCOSE METER 205 mg/dL 70-[address] [facility] ([facility]) (test code = [place] [place] 1538) [id number] POCT-GLUCOSE [id number] 08:08:00 Test Item Value Reference Range Interpretation Comments POC-GLUCOSE METER 119 mg/dL 70-[address] [facility] ([employer]) (test code = MICAH Kaye [facility] 1538) [address] C. DIFFICILE GDH [id number] 07:40:00 Test Item Value Reference Range Interpretation Comments CDT TOXIN (test code Negative Negative = [id number]) CDT GDH ANTIGEN Positive Negative A C. difficile present but (test code = toxin not detec leesa. [id number]) Indicates colon ization with non-toxige lizbeth strain or level of tox in below detectable leve ls. No need for enteri c isolation. Duran atment is rarely needed ( only when strong clinical suspicion for Clostridium difficile infection) Testing performed by [employer] Rapid Cassette Assay. For GDH, published sensitivity of the assay is 98.7% compared to cytotoxicity testing. For Toxin AB, published sensitivity is 87.8% and specificity 99.4% compared to cytotoxicity testing.Verification of kit performance was done by the [facility] prior to clinical use.POCT-GLUCOSE [id number] 06:37:00 Test Item Value Reference Range Interpretation Comments POC-GLUCOSE METER 141 mg/dL 70-[address] [facility] [address] (BEAKER) (test code = MICAH Kaye [place] 1538) [id number] COMPREHENSIVE METABOLIC [id number] 04:48:00 Test Item Value Reference Range Interpretation Comments TOTAL PROTEIN 4.7 gm/dL 6.0-8.3 L (BEAKER) (test code = 770) ALBUMIN (BEAKER) 2.7 g/dL 3.5-5.0 L (test code = 1145) ALKALINE PHOSPHATASE 33 U/L 40-150 L (BEAKER) (test code = 346) BILIRUBIN TOTAL 0.4 mg/dL 0.2-1.2 (BEAKER) (test code = 377) SODIUM (BEAKER) (test 145 meq/L 136-145 code = 381) POTASSIUM (BEAKER) 3.7 meq/L 3.5-5.1 (test code = 379) CHLORIDE (BEAKER) 110 meq/L 98-107 H (test code = 382) CO2 (BEAKER) (test 28 meq/L 22-29 code = 355) BLOOD UREA NITROGEN 11 mg/dL 7-21 (BEAKER) (test code = 354) CREATININE (BEAKER) 0.74 mg/dL 0.57-1.25 (test code = 358) GLUCOSE RANDOM 137 mg/dL 70-105 H (BEAKER) (test code = 652) CALCIUM (BEAKER) 8.2 mg/dL 8.4-10.2 L (test code = 697) AST (SGOT) (BEAKER) 8 U/L 5-34 (test code = 353) ALT (SGPT) (BEAKER) < U/L 6-55 L (test code = 347) EGFR (BEAKER) (test 76 mL/min/1.73 ESTIMA LEESA GFR IS code = 1092) sq m NOT ACCURATE CREATININE CLEARANCE IN PREDICTING GLOMERULAR FILTRATION RATE . ESTIMATED GFR I S NOT APPLICABLE FOR DIALYSIS PATIEN TS. PROTHROMBIN TIME/[id number] 04:40:00 Test Item Value Reference Range Interpretation Comments PROTIME (BEAKER) (test code = 23.8 seconds 11.7-14.7 H 759) INR (BEAKER) (test code = 370) 2.1 <=5.9 RECOMMENDED COUMADIN/WARFARIN INR THERAPY RANGESSTANDARD DOSE: 2.0 - 3.0 Includes: PROPHYLAXIS forvenous thrombosis, systemic embolization; TREATMENT for venous thrombosis and/or pulmonary embolus.HIGH RISK: Target INR is 2.5-3.5 for patients with mechanical heart valves.While on warfarin.[id number] 04:29:00 Test Item Value Reference Range Interpretation Comments MAGNESIUM (BEAKER) (test code = 2.0 mg/dL 1.6-2.6 627) CBC W/PLT COUNT & AUTO [id number] 04:11:00 Test Item Value Reference Range Interpretation Comments WHITE BLOOD CELL COUNT (BEAKER) 5.8 K/ L 3.5-10.5 (test code = 775) RED BLOOD CELL COUNT (BEAKER) 3.18 M/ L 3.93-5.22 L (test code = 761) HEMOGLOBIN (BEAKER) (test code = 10.0 GM/DL 11.2-15.7 L 410) HEMATOCRIT (BEAKER) (test code = 31.8 % 34.1-44.9 L 411) MEAN CORPUSCULAR VOLUME (BEAKER) 100.0 fL 79.4-94.8 H (test code = 753) MEAN CORPUSCULAR HEMOGLOBIN 31.4 pg 25.6-32.2 (BEAKER) (test code = 751) MEAN CORPUSCULAR HEMOGLOBIN CONC 31.4 GM/DL 32.2-35.5 L (BEAKER) (test code = 752) RED CELL DISTRIBUTION WIDTH 14.9 % 11.7-14.4 H (BEAKER) (test code = 412) PLATELET COUNT (BEAKER) (test 141 K/CU MM 150-450 L code = 756) MEAN PLATELET VOLUME (BEAKER) 11.3 fL 9.4-12.3 (test code = 754) NUCLEATED RED BLOOD CELLS 0 /100 WBC 0-0 (BEAKER) (test code = 413) NEUTROPHILS RELATIVE PERCENT 71 % (BEAKER) (test code = 429) LYMPHOCYTES RELATIVE PERCENT 23 % (BEAKER) (test code = 430) MONOCYTES RELATIVE PERCENT 4 % (BEAKER) (test code = 431) EOSINOPHILS RELATIVE PERCENT 0 % (BEAKER) (test code = 432) BASOPHILS RELATIVE PERCENT 0 % (BEAKER) (test code = 437) NEUTROPHILS ABSOLUTE COUNT 4.14 K/ L 1.56-6.13 (BEAKER) (test code = 670) LYMPHOCYTES ABSOLUTE COUNT 1.34 K/ L 1.18-3.74 (BEAKER) (test code = 414) MONOCYTES ABSOLUTE COUNT (BEAKER) 0.23 K/ L 0.24-0.36 L (test code = 415) EOSINOPHILS ABSOLUTE COUNT 0.02 K/ L 0.04-0.36 L (BEAKER) (test code = 416) BASOPHILS ABSOLUTE COUNT (BEAKER) 0.02 K/ L 0.01-0.08 (test code = 417) IMMATURE GRANULOCYTES-RELATIVE 1 % 0-1 PERCENT (BEAKER) (test code = 2801) POCT-GLUCOSE [id number] 22:19:00 Test Item Value Reference Range Interpretation Comments POC-GLUCOSE METER 266 mg/dL 70-[address] [facility] 67 (BEAKER) (test code = [facility] 1538) [id number] 17:54:00 Test Item Value Reference Range Interpretation Comments POTASSIUM (BEAKER) (test code = 4.2 meq/L 3.5-5.1 379) [id number] 17:23:00 Test Item Value Reference Range Interpretation Comments MAGNESIUM (BEAKER) (test code = 1.7 mg/dL 1.6-2.6 627) POCT-GLUCOSE [id number] 12:41:00 Test Item Value Reference Range Interpretation Comments POC-GLUCOSE METER 111 mg/dL 70-[address] [facility] 6720 (BEAKER) (test code = [facility] 1538) [id number] 12:40:00 Test Item Value Reference Range Interpretation Comments POTASSIUM (BEAKER) (test code = 3.5 meq/L 3.5-5.1 379) POCT-GLUCOSE [id number] 10:05:00 Test Item Value Reference Range Interpretation Comments POC-GLUCOSE METER 94 mg/dL 70-[address] [facility] 6720 (BEAKER) (test code = [place] [address] 1538) COMPREHENSIVE METABOLIC [id number] 05:47:00 Test Item Value Reference Range Interpretation Comments TOTAL PROTEIN 4.7 gm/dL 6.0-8.3 L (BEAKER) (test code = 770) ALBUMIN (BEAKER) 2.7 g/dL 3.5-5.0 L (test code = 1145) ALKALINE PHOSPHATASE 31 U/L 40-150 L (BEAKER) (test code = 346) BILIRUBIN TOTAL 0.5 mg/dL 0.2-1.2 (BEAKER) (test code = 377) SODIUM (BEAKER) (test 147 meq/L 136-145 H code = 381) POTASSIUM (BEAKER) 2.9 meq/L 3.5-5.1 L (test code = 379) CHLORIDE (BEAKER) 110 meq/L 98-107 H (test code = 382) CO2 (BEAKER) (test 27 meq/L 22-29 code = 355) BLOOD UREA NITROGEN 10 mg/dL 7-21 (BEAKER) (test code = 354) CREATININE (BEAKER) 0.70 mg/dL 0.57-1.25 (test code = 358) GLUCOSE RANDOM 86 mg/dL 70-105 (BEAKER) (test code = 652) CALCIUM (BEAKER) 7.9 mg/dL 8.4-10.2 L (test code = 697) AST (SGOT) (BEAKER) 9 U/L 5-34 (test code = 353) ALT (SGPT) (BEAKER) < U/L 6-55 L (test code = 347) EGFR (BEAKER) (test 81 mL/min/1.73 ESTIMA LEESA GFR IS code = 1092) sq m NOT ACCURATE CREATININE CLEARANCE IN PREDICTING GLOMERULAR FILTRATION RATE . ESTIMATED GFR I S NOT APPLICABLE FOR DIALYSIS PATIEN TS. [id number] 05:44:00 Test Item Value Reference Range Interpretation Comments MAGNESIUM (BEAKER) (test code = 2.0 mg/dL 1.6-2.6 627) PROTHROMBIN [id number] 05:37:00 Test Item Value Reference Range Interpretation Comments PROTIME (BEAKER) (test code = 24.0 seconds 11.7-14.7 H 759) INR (BEAKER) (test code = 370) 2.2 <=5.9 RECOMMENDED COUMADIN/WARFARIN INR THERAPY RANGESSTANDARD DOSE: 2.0 - 3.0 Includes: PROPHYLAXIS forvenous thrombosis, systemic embolization; TREATMENT for venous thrombosis and/or pulmonary embolus.HIGH RISK: Target INR is 2.5-3.5 for patients with mechanical heart valves.PROTHROMBIN [id number] 05:36:00 Test Item Value Reference Range Interpretation Comments PROTIME (BEAKER) (test code = 24.2 seconds 11.7-14.7 H 759) INR (BEAKER) (test code = 370) 2.2 <=5.9 RECOMMENDED COUMADIN/WARFARIN INR THERAPY RANGESSTANDARD DOSE: 2.0 - 3.0 Includes: PROPHYLAXIS forvenous thrombosis, systemic embolization; TREATMENT for venous thrombosis and/or pulmonary embolus.HIGH RISK: Target INR is 2.5-3.5 for patients with mechanical heart valves.While on warfarin.CBC W/PLT COUNT & AUTO [id number] 05:35:00 Test Item Value Reference Range Interpretation Comments WHITE BLOOD CELL COUNT (BEAKER) 4.3 K/ L 3.5-10.5 (test code = 775) RED BLOOD CELL COUNT (BEAKER) 3.29 M/ L 3.93-5.22 L (test code = 761) HEMOGLOBIN (BEAKER) (test code = 10.3 GM/DL 11.2-15.7 L 410) HEMATOCRIT (BEAKER) (test code = 33.2 % 34.1-44.9 L 411) MEAN CORPUSCULAR VOLUME (BEAKER) 100.9 fL 79.4-94.8 H (test code = 753) MEAN CORPUSCULAR HEMOGLOBIN 31.3 pg 25.6-32.2 (BEAKER) (test code = 751) MEAN CORPUSCULAR HEMOGLOBIN CONC 31.0 GM/DL 32.2-35.5 L (BEAKER) (test code = 752) RED CELL DISTRIBUTION WIDTH 14.9 % 11.7-14.4 H (BEAKER) (test code = 412) PLATELET COUNT (BEAKER) (test 138 K/CU MM 150-450 L code = 756) MEAN PLATELET VOLUME (BEAKER) 11.5 fL 9.4-12.3 (test code = 754) NUCLEATED RED BLOOD CELLS 0 /100 WBC 0-0 (BEAKER) (test code = 413) NEUTROPHILS RELATIVE PERCENT 66 % (BEAKER) (test code = 429) LYMPHOCYTES RELATIVE PERCENT 27 % (BEAKER) (test code = 430) MONOCYTES RELATIVE PERCENT 4 % (BEAKER) (test code = 431) EOSINOPHILS RELATIVE PERCENT 1 % (BEAKER) (test code = 432) BASOPHILS RELATIVE PERCENT 0 % (BEAKER) (test code = 437) NEUTROPHILS ABSOLUTE COUNT 2.82 K/ L 1.56-6.13 (BEAKER) (test code = 670) LYMPHOCYTES ABSOLUTE COUNT 1.16 K/ L 1.18-3.74 L (BEAKER) (test code = 414) MONOCYTES ABSOLUTE COUNT (BEAKER) 0.18 K/ L 0.24-0.36 L (test code = 415) EOSINOPHILS ABSOLUTE COUNT 0.06 K/ L 0.04-0.36 (BEAKER) (test code = 416) BASOPHILS ABSOLUTE COUNT (BEAKER) 0.01 K/ L 0.01-0.08 (test code = 417) IMMATURE GRANULOCYTES-RELATIVE 1 % 0-1 PERCENT (BEAKER) (test code = 2801) POCT-GLUCOSE [id number] 23:56:00 Test Item Value Reference Range Interpretation Comments POC-GLUCOSE METER 105 mg/dL 70-[address] [facility] 67[address] ([facility]) (test code = [facility] 1538) [id number] TROPONIN [id number] 13:02:00 Test Item Value Reference Range Interpretation Comments TROPONIN I ([facility]) (test code = 0.02 ng/mL 0.00-0.03 397) Troponin I (TnI) levels must be interpreted [...] disease, and persistent tachyarrhythmia.B-TYPE NATRIURETIC FACTOR (BNP) 2018-01-14 12:46:00 Test Item Value Reference Range Interpretation Comments B-TYPE NATRIURETIC PEPTIDE (MATTHEW) 975 pg/mL 0-100 H (test code = 700) POCT-GLUCOSE [id number] 12:18:00 Test Item Value Reference Range Interpretation Comments POC-GLUCOSE METER 175 mg/dL 70-[address] [facility] 6720 (MATTHEW) (test code = [place] 1538) [address] U/S, ABDOMINAL, [id number] 10:23:00Abdomen limited area? Add comment if clarification is needed.->Gall BladderReason for exam:->Outside hospital US with gallbladder wall thickening concerning for acalculous cholecystitisReason forexam:->Clinically, has abdominal pain and elevated lipaseFINAL REPORT INDICATION: 77-year-old female with abdominal pain and elevated lipase. TECHNIQUE: Abdominal ultrasound limited (right upper quadrant). COMPARISON: None. FINDINGS:Pancreas, to the extent visualized, is unremarkable. IVC and proximal and mid abdominal aorta are unrema rkable. Distal abdominal aorta not visualized because of [...] of cholelithiasis or cholecystitis. Signed: Augustine Yusuf MDReport Verified Date/Time: 01/14/2018 10:23:02 Reading Location: [facility] [id number] [facility] Consult Reading Room T4, [id number] 08:42:00 Test Item Value Reference Range Interpretation Comments FREE T4 (BEAKER) (test code = 655) 0.83 ng/dL 0.70-1.48 POCT-GLUCOSE [id number] 08:37:00 Test Item Value Reference Range Interpretation Comments POC-GLUCOSE METER 161 mg/dL 70-[address] [facility] 67[address] (MATTHEW) (test code = [place] 1538) [address] TSH/FREE T4 IF [id number] 08:05:00 Test Item Value Reference Range Interpretation Comments THYROID STIMULATING HORMONE 0.02 uIU/mL 0.35-4.94 L (BEAKER) (test code = 772) VITAMIN B12 AND [id number] 07:42:00 Test Item Value Reference Range Interpretation Comments VITAMIN B12 (BEAKER) (test code = 1276 pg/mL 213-816 H 774) FOLATE (BEAKER) (test code = 362) 8.8 ng/mL >=7.0 LIPID [id number] 07:14:00 Test Item Value Reference Range Interpretation Comments TRIGLYCERIDES (BEAKER) (test code = 171 mg/dL 540) CHOLESTEROL (BEAKER) (test code = 123 mg/dL 631) HDL CHOLESTEROL (BEAKER) (test code 25 mg/dL = 976) LDL CHOLESTEROL CALCULATED (BEAKER) 64 mg/dL (test code = 633) Triglyceride Reference Range: Low Risk <150 Borderline 150-199 High Risk 200-499 Very High Risk >=500Cholesterol Reference Range: Low Risk <200 Borderline 200-239 High Risk >240HDL Cholesterol Reference Range: Low Risk >=60 High Risk <40LDL Cholesterol Reference Range: Optimal <100 Near Optimal 100-129 Borderline 130-159 High 160-189 Very High >=190TROPONIN [id number] 07:12:00 Test Item Value Reference Range Interpretation Comments TROPONIN I (BEAKER) (test code = 0.03 ng/mL 0.00-0.03 397) Troponin I (TnI) levels must be interpreted [...] acute neurological disease, and persistent tachyarrhythmia.URINALYSIS W/ [id number] 06:35:00 Test Item Value Reference Range Interpretation Comments COLOR (BEAKER) (test code = 470) Yellow CLARITY (BEAKER) (test code = Clear 469) SPECIFIC GRAVITY UA (BEAKER) 1.043 1.001-1.035 H (test code = 468) PH UA (BEAKER) (test code = 467) 6.5 5.0-8.0 PROTEIN UA (BEAKER) (test code = 20 mg/dL Negative A 464) GLUCOSE UA (BEAKER) (test code = 1000 mg/dL Negative A 365) KETONES UA (BEAKER) (test code = Negative Negative 371) BILIRUBIN UA (BEAKER) (test code Negative Negative = 462) BLOOD UA (BEAKER) (test code = Trace Negative A 461) NITRITE UA (BEAKER) (test code = Negative Negative 465) LEUKOCYTE ESTERASE UA (BEAKER) Negative Negative (test code = 466) UROBILINOGEN UA (BEAKER) (test 0.2 mg/dL 0.2-1.0 code = 463) RBC UA (BEAKER) (test code = 1 /HPF 519) WBC UA (BEAKER) (test code = 3 /HPF 520) BACTERIA (BEAKER) (test code = Rare 517) SOURCE(BEAKER) (test code = Urine, [place] 3435) [id number] 06:07:00 Test Item Value Reference Range Interpretation Comments MAGNESIUM (BEAKER) (test code = 1.8 mg/dL 1.6-2.6 627) [id number] 05:32:00 Test Item Value Reference Range Interpretation Comments MAGNESIUM (BEAKER) (test code = 2.5 mg/dL 1.6-2.6 627) COMPREHENSIVE METABOLIC [id number] 05:32:00 Test Item Value Reference Range Interpretation Comments TOTAL PROTEIN 5.1 gm/dL 6.0-8.3 L (BEAKER) (test code = 770) ALBUMIN (BEAKER) 2.9 g/dL 3.5-5.0 L (test code = 1145) ALKALINE PHOSPHATASE 31 U/L 40-150 L (BEAKER) (test code = 346) BILIRUBIN TOTAL 0.4 mg/dL 0.2-1.2 (BEAKER) (test code = 377) SODIUM (BEAKER) (test 145 meq/L 136-145 code = 381) POTASSIUM (BEAKER) 4.0 meq/L 3.5-5.1 (test code = 379) CHLORIDE (BEAKER) 110 meq/L 98-107 H (test code = 382) CO2 (BEAKER) (test 28 meq/L 22-29 code = 355) BLOOD UREA NITROGEN 14 mg/dL 7-21 (BEAKER) (test code = 354) CREATININE (BEAKER) 0.71 mg/dL 0.57-1.25 (test code = 358) GLUCOSE RANDOM 187 mg/dL 70-105 H (BEAKER) (test code = 652) CALCIUM (BEAKER) 8.1 mg/dL 8.4-10.2 L (test code = 697) AST (SGOT) (BEAKER) 9 U/L 5-34 (test code = 353) ALT (SGPT) (BEAKER) 6 U/L 6-55 (test code = 347) EGFR (BEAKER) (test 79 mL/min/1.73 ESTIMA LEESA GFR IS code = 1092) sq m NOT ACCURATE CREATININE CLEARANCE IN PREDICTING GLOMERULAR FILTRATION RATE . ESTIMATED GFR I S NOT APPLICABLE FOR DIALYSIS PATIEN TS. PROTHROMBIN [id number] 05:10:00 Test Item Value Reference Range Interpretation Comments PROTIME (BEAKER) (test code = 25.1 seconds 11.7-14.7 H 759) INR (BEAKER) (test code = 370) 2.3 <=5.9 RECOMMENDED COUMADIN/WARFARIN INR THERAPY RANGESSTANDARD DOSE: 2.0 - 3.0 Includes: PROPHYLAXIS forvenous thrombosis, systemic embolization; TREATMENT for venous thrombosis and/or pulmonary embolus.HIGH RISK: Target INR is 2.5-3.5 for patients with mechanical heart valves.CBC W/PLT COUNT & AUTO DIFFERENTIAL 2018-01-14 05:03:00 Test Item Value Reference Range Interpretation Comments WHITE BLOOD CELL COUNT (BEAKER) 5.6 K/ L 3.5-10.5 (test code = 775) RED BLOOD CELL COUNT (BEAKER) 3.19 M/ L 3.93-5.22 L (test code = 761) HEMOGLOBIN (BEAKER) (test code = 10.1 GM/DL 11.2-15.7 L 410) HEMATOCRIT (BEAKER) (test code = 31.5 % 34.1-44.9 L 411) MEAN CORPUSCULAR VOLUME (BEAKER) 98.7 fL 79.4-94.8 H (test code = 753) MEAN CORPUSCULAR HEMOGLOBIN 31.7 pg 25.6-32.2 (BEAKER) (test code = 751) MEAN CORPUSCULAR HEMOGLOBIN CONC 32.1 GM/DL 32.2-35.5 L (BEAKER) (test code = 752) RED CELL DISTRIBUTION WIDTH 14.6 % 11.7-14.4 H (BEAKER) (test code = 412) PLATELET COUNT (BEAKER) (test 141 K/CU MM 150-450 L code = 756) MEAN PLATELET VOLUME (BEAKER) 11.6 fL 9.4-12.3 (test code = 754) NUCLEATED RED BLOOD CELLS 0 /100 WBC 0-0 (BEAKER) (test code = 413) NEUTROPHILS RELATIVE PERCENT 71 % (BEAKER) (test code = 429) LYMPHOCYTES RELATIVE PERCENT 22 % (BEAKER) (test code = 430) MONOCYTES RELATIVE PERCENT 5 % (BEAKER) (test code = 431) EOSINOPHILS RELATIVE PERCENT 0 % (BEAKER) (test code = 432) BASOPHILS RELATIVE PERCENT 0 % (BEAKER) (test code = 437) NEUTROPHILS ABSOLUTE COUNT 4.00 K/ L 1.56-6.13 (BEAKER) (test code = 670) LYMPHOCYTES ABSOLUTE COUNT 1.25 K/ L 1.18-3.74 (BEAKER) (test code = 414) MONOCYTES ABSOLUTE COUNT (BEAKER) 0.26 K/ L 0.24-0.36 (test code = 415) EOSINOPHILS ABSOLUTE COUNT 0.02 K/ L 0.04-0.36 L (BEAKER) (test code = 416) BASOPHILS ABSOLUTE COUNT (BEAKER) 0.01 K/ L 0.01-0.08 (test code = 417) IMMATURE GRANULOCYTES-RELATIVE 1 % 0-1 PERCENT (BEAKER) (test code = 2801) [id number] 02:52:00 Test Item Value Reference Range Interpretation Comments PROCALCITONIN (BEAKER) (test code 0.41 ng/mL <0.05 H = 3036) SEPSIS RISK (ng/mL)Low: 0.05-0.50Intermediate: 0.51-2.00High: >=2.01LACTIC ACID, VENOUS, WHOLE [id number] 02:06:00 Test Item Value Reference Range Interpretation Comments LACTATE BLOOD VENOUS 1.3 mmol/L 0.5-2.2 Specime n slightly (2) (BEAKER) (test hemolyzed code = 2872) Effective 01/07/2016: Units/Reference Range ChangeNew: 0.5-2.2 mmol/L Previous: 5-20 mg/dLCOMPREHENSIVE METABOLIC [id number] 02:06:00 Test Item Value Reference Range Interpretation Comments TOTAL PROTEIN 5.2 gm/dL 6.0-8.3 L (BEAKER) (test code = 770) ALBUMIN (BEAKER) 3.0 g/dL 3.5-5.0 L (test code = 1145) ALKALINE PHOSPHATASE 31 U/L 40-150 L (BEAKER) (test code = 346) BILIRUBIN TOTAL 0.4 mg/dL 0.2-1.2 (BEAKER) (test code = 377) SODIUM (BEAKER) (test 143 meq/L 136-145 code = 381) POTASSIUM (BEAKER) 2.9 meq/L 3.5-5.1 L (test code = 379) CHLORIDE (BEAKER) 109 meq/L 98-107 H (test code = 382) CO2 (BEAKER) (test 27 meq/L 22-29 code = 355) BLOOD UREA NITROGEN 15 mg/dL 7-21 (BEAKER) (test code = 354) CREATININE (BEAKER) 0.70 mg/dL 0.57-1.25 (test code = 358) GLUCOSE RANDOM 215 mg/dL 70-105 H (BEAKER) (test code = 652) CALCIUM (BEAKER) 7.9 mg/dL 8.4-10.2 L (test code = 697) AST (SGOT) (BEAKER) 10 U/L 5-34 (test code = 353) ALT (SGPT) (BEAKER) 7 U/L 6-55 (test code = 347) EGFR (BEAKER) (test 81 mL/min/1.73 ESTIMA LEESA GFR IS code = 1092) sq m NOT ACCURATE CREATININE CLEARANCE IN PREDICTING GLOMERULAR FILTRATION RATE . ESTIMATED GFR I S NOT APPLICABLE FOR DIALYSIS PATIEN TS. [id number] 02:04:00 Test Item Value Reference Range Interpretation Comments LIPASE (BEAKER) (test code = 749) 730 U/L 8-78 H [id number] 02:04:00 Test Item Value Reference Range Interpretation Comments AMYLASE (BEAKER) (test code = 349) 226 U/L 25-125 H PROTHROMBIN [id number] 01:45:00 Test Item Value Reference Range Interpretation Comments PROTIME (BEAKER) (test code = 23.9 seconds 11.7-14.7 H 759) INR (BEAKER) (test code = 370) 2.1 <=5.9 RECOMMENDED COUMADIN/WARFARIN INR THERAPY RANGESSTANDARD DOSE: 2.0 - 3.0 Includes: PROPHYLAXIS forvenous thrombosis, systemic embolization; TREATMENT for venous thrombosis and/or pulmonary embolus.HIGH RISK: Target INR is 2.5-3.5 for patients with mechanical heart valves.[id number] 01:45:00 Test Item Value Reference Range Interpretation Comments PARTIAL THROMBOPLASTIN TIME 32.4 seconds 22.5-36.0 (BEAKER) (test code = 760) CBC W/PLT COUNT & AUTO [id number] 01:38:00 Test Item Value Reference Range Interpretation Comments WHITE BLOOD CELL COUNT (BEAKER) 4.9 K/ L 3.5-10.5 (test code = 775) RED BLOOD CELL COUNT (BEAKER) 3.21 M/ L 3.93-5.22 L (test code = 761) HEMOGLOBIN (BEAKER) (test code = 10.2 GM/DL 11.2-15.7 L 410) HEMATOCRIT (BEAKER) (test code = 31.6 % 34.1-44.9 L 411) MEAN CORPUSCULAR VOLUME (BEAKER) 98.4 fL 79.4-94.8 H (test code = 753) MEAN CORPUSCULAR HEMOGLOBIN 31.8 pg 25.6-32.2 (BEAKER) (test code = 751) MEAN CORPUSCULAR HEMOGLOBIN CONC 32.3 GM/DL 32.2-35.5 (BEAKER) (test code = 752) RED CELL DISTRIBUTION WIDTH 14.4 % 11.7-14.4 (BEAKER) (test code = 412) PLATELET COUNT (BEAKER) (test 137 K/CU MM 150-450 L code = 756) MEAN PLATELET VOLUME (BEAKER) 11.9 fL 9.4-12.3 (test code = 754) NUCLEATED RED BLOOD CELLS 0 /100 WBC 0-0 (BEAKER) (test code = 413) NEUTROPHILS RELATIVE PERCENT 76 % (BEAKER) (test code = 429) LYMPHOCYTES RELATIVE PERCENT 19 % (BEAKER) (test code = 430) MONOCYTES RELATIVE PERCENT 4 % (BEAKER) (test code = 431) EOSINOPHILS RELATIVE PERCENT 0 % (BEAKER) (test code = 432) BASOPHILS RELATIVE PERCENT 0 % (BEAKER) (test code = 437) NEUTROPHILS ABSOLUTE COUNT 3.73 K/ L 1.56-6.13 (BEAKER) (test code = 670) LYMPHOCYTES ABSOLUTE COUNT 0.92 K/ L 1.18-3.74 L (BEAKER) (test code = 414) MONOCYTES ABSOLUTE COUNT (BEAKER) 0.21 K/ L 0.24-0.36 L (test code = 415) EOSINOPHILS ABSOLUTE COUNT 0.00 K/ L 0.04-0.36 L (BEAKER) (test code = 416) BASOPHILS ABSOLUTE COUNT (BEAKER) 0.01 K/ L 0.01-0.08 (test code = 417) IMMATURE GRANULOCYTES-RELATIVE 1 % 0-1 PERCENT (BEAKER) (test code = 2041)
[2020-05-22 07:26] LABS: Absolute Lymphocytes (CBC) 1.3 K/uL (0.7-4.9); Basophils % 0.3 % (0-1.3); Hematocrit 35.5 % (36.0-45.0); Lymphocytes % 17.5 % (15.3-44.8); MPV 10.5 fL (7.6-11.3); Protime INR 3.17
[2020-05-22 07:39] LABS: Albumin 2.7 g/dL (3.4-5.0); Bilirubin Direct 0.2 mg/dL (0-0.2); Bilirubin Total 0.6 mg/dL (0.2-1.0); Protein, Total 5.7 g/dL (6.4-8.2)
[2020-05-22 07:40] LABS: Troponin (Emerg Dept Use Only) 0.04 ng/mL (0.0-0.045)
--- NOTE | 2020-05-22 08:00 | EDPHYS ---
Physician Documentation [facility] Name: Emelia Payan Age: 79 yrs Sex: Female : 1940 Arrival Date: 05/22/2020 Time: 07:00 Bed 4 Private MD: ED Physician Michael Tellez HPI: 05/22 07:28 This 79 yrs old Female presents to ER via EMS with complaints of Chest Pain. kdr 07:28 The patient or guardian reports chest pain that is located primarily in the anterior kdr chest wall, left. Onset: gradually, 3 day(s) ago. The pain radiates to the left arm, the left shoulder, To elbow. Associated signs and symptoms: Pertinent positives: nausea, shortness of breath, Pertinent negatives: abdominal pain, cough, diaphoresis, dizziness, headache. The chest pain is described as aching, dull, a heaviness, a pressure. Duration: The patient or guardian reports multiple episodes, that are intermittent, that wax and wane, with no pattern. Modifying factors: The symptoms are alleviated by nothing. the symptoms are aggravated by exertion, movement. Severity of pain: At its worst the pain was mild moderate just prior to arrival, in the emergency department the pain is unchanged. The patient has experienced similar episodes in the past, a few times. The patient has not recently seen a physician. The patient states that for the past three days she has been having intermittent left sided chest pain. She has also been SOB with 3-4 steps and this morning with a little nausea. She has a history of A-fib but believes that this is intermittent and that she is usually in NSR. She is currently non-toxic appearing and not in any significant distress - she added that she had taken one of her a antianxiety medications this morning. Historical: - Allergies: 07:07 Cipro; bb 07:07 Xarelto; bb - Home Meds: 09:12 sotalol 160 mg Oral tab 1 tab 2 times per day [Active]; Creon 36,000-114,000- 180,000 em unit Oral cpDR 1 cap 3 times per day [Active]; amlodipine 5 mg tab 1 tab once daily [Active]; Dexilant 60 mg Oral CpDB 1 cap once daily [Active]; fenofibrate 48 mg Oral 1 tab once daily [Active]; glipizide 2.5 mg Oral tr24 one tab M, W, F [Active]; hydrocortisone 10 mg Oral tab 2 tabs twice a day [Active]; levothyroxine 112 mcg tab 1 tab once daily [Active]; liothyronine 5 mcg Oral tab 1 tab once daily [Active]; losartan 100 mg Oral tab 1 tab once daily [Active]; lorazepam 0.5 mg Oral tab 2 times per day for Anxiety [Active]; Omnitrope 5 mg/1.5 mL (3.3 mg/mL) subcutaneous crtg once daily [Active]; Vitamin D3 50,000 units Oral tab twice a day [Active]; warfarin 2.5 mg Oral tab 1 tab once daily [Active]; - PMHx: 07:07 adrenal insuficiency; Anxiety; Atrial Fib; CHF; Diabetes - IDDM; DVT; Hyperlipidemia; bb Hypertension; Hypothyroidism; Pancreatitis; CVA; - PSHx: 07:07 Appendectomy; pituitary; Carpal Tunnel Repair; Lumpectomy; bb - Immunization history:: Adult Immunizations unknown. - Social history:: Smoking status: Patient denies any tobacco usage or history of. ROS: 07:28 Constitutional: Negative for fever, chills, and weight loss, Eyes: Negative for injury, kdr pain, redness, and discharge, ENT: Negative for injury, pain, and discharge, Neck: Negative for injury, pain, and swelling, Abdomen/GI: Negative for abdominal pain, nausea, vomiting, diarrhea, and constipation, Back: Negative for injury and pain, : Negative for injury, bleeding, discharge, and swelling, Skin: Negative for injury, rash, and discoloration, Neuro: Negative for headache, weakness, numbness, tingling, and seizure activity. Psych: Negative for depression, anxiety, suicide ideation, homicidal ideation, and hallucinations, Allergy/Immunology: Negative for hives, rash, and allergies, Endocrine: Negative for neck swelling, polydipsia, polyuria, polyphagia, and marked weight changes, Hematologic/Lymphatic: Negative for swollen nodes, abnormal bleeding, and unusual bruising. 07:28 Cardiovascular: Positive for chest pain, Negative for orthopnea, palpitations. 07:28 Respiratory: Positive for dyspnea on exertion, shortness of breath, Negative for cough, hemoptysis, orthopnea, pleurisy, sputum production, wheezing. 07:28 MS/extremity: Positive for swelling, tenderness, The patient has chronic lymphedema - she reports that the condition and appearance of her lower extremities is unchanaged. Exam: 07:27 ECG was reviewed by the Attending Physician. kdr 07:28 Constitutional: This is a well developed, well nourished patient who is awake, alert, kdr and in no acute distress. Head/Face: Normocephalic, atraumatic. Eyes: Pupils equal round and reactive to light, extra-ocular motions intact. Lids and lashes normal. Conjunctiva and sclera are non-icteric and not injected. Cornea within normal limits. Periorbital areas with no swelling, redness, or edema. Neck: Trachea midline, no thyromegaly or masses palpated, and no cervical lymphadenopathy. Supple, full range of motion without nuchal rigidity, or vertebral point tenderness. No Meningismus. Chest/axilla: Normal chest wall appearance and motion. Nontender with no deformity. No lesions are appreciated. Respiratory: Lungs have equal breath sounds bilaterally, clear to auscultation and percussion. No rales, rhonchi or wheezes noted. No increased work of breathing, no retractions or nasal flaring. Abdomen/GI: Soft, non-tender, with normal bowel sounds. No distension or tympany. No guarding or rebound. No evidence of tenderness throughout. Back: No spinal tenderness. No costovertebral tenderness. Full range of motion. Neuro: Awake and alert, GCS 15, oriented to person, place, time, and situation. Cranial nerves II-XII grossly intact. Motor strength 5/5 in all extremities. Sensory grossly intact. Cerebellar exam normal. Normal gait. Psych: Awake, alert, with orientation to person, place and time. Behavior, mood, and affect are within normal limits. 07:28 Cardiovascular: Rate: tachycardic, Rhythm: irregularly irregular, Pulses: no pulse deficits are appreciated, Heart sounds: normal, Edema: 3+ edema to level of left midcalf, left ankle, left foot, right midcalf, right ankle and right foot. 07:28 Musculoskeletal/extremity: Extremities: ROM: no acute changes, Circulation is intact in all extremities. The patient has chronic lymphedema that is unchanged. Vital Signs: 07:03 BP 119 / 67; Pulse 116; Resp 16 S; Temp 96.6(TE); Pulse Ox 98% on R/A; Weight 80.74 kg bb (R); Height 5 ft. 4 in. (162.56 cm) (R); Pain 3/10; 08:22 BP 114 / 73; Pulse 116; Resp 20 S; Pulse Ox 97% on R/A; em 07:03 Body Mass Index 30.55 (80.74 kg, 162.56 cm) bb MDM: 07:59 Patient medically screened. kdr 07:59 Data reviewed: vital signs, nurses notes, lab test result(s), EKG, radiologic studies. kdr Counseling: I had a detailed discussion with the patient and/or guardian regarding: the historical points, exam findings, and any diagnostic results supporting the discharge/admit diagnosis, lab results, radiology results, the need for further work-up and treatment in the hospital. 05/22 07:02 Order name: Basic Metabolic Panel; Complete Time: 07:55 [facility] 05/22 07:02 Order name: CBC with Diff; Complete Time: 07:55 [facility] 05/22 07:02 Order name: LFT's; Complete Time: 07:55 [facility] 05/22 07:02 Order name: Magnesium; Complete Time: 07:55 [facility] 05/22 07:02 Order name: NT PRO-BNP; Complete Time: 07:55 05/22 07:02 Order name: PT-INR; Complete Time: 07:55 05/22 07:02 Order name: Troponin (emerg Dept Use Only); Complete Time: 07:55 [facility] 05/22 07:02 Order name: XRAY Chest (1 view); Complete Time: 11:12 [facility] 05/22 07:02 Order name: EKG; Complete Time: 07:03 [facility] 05/22 07:02 Order name: Cardiac monitoring; Complete Time: 07:02 [facility] 05/22 07:02 Order name: EKG - Nurse/Tech; Complete Time: 07:02 [facility] 05/22 07:02 Order name: IV Saline Lock; Complete Time: 07:02 [facility] 05/22 07:02 Order name: Labs collected and sent; Complete Time: 07:02 [facility] 05/22 07:02 Order name: O2 Per Protocol; Complete Time: 07:03 [facility] 05/22 07:02 Order name: O2 Sat Monitoring; Complete Time: 07:03 rr5 EC:27 Rate is 116 beats/min. Rhythm is irregularly irregular, A fib with Unifocal PVCs. QRS kdr [place] is Normal. ID interval is normal. QRS interval is normal. QT interval is normal. Clinical impression: Atrial Fibrillation and No evidence of ischemia. Administered Medications: 09:17 Drug: Sotalol 160 mg Route: PO; em 09:57 Follow up: Response: No adverse reaction em Disposition: 05/22/20 07:59 Hospitalization ordered by Raul Cox for Observation. Preliminary diagnosis are Atrial fibrillation and flutter, Shortness of breath, Chest pain, unspecified, Lymphedema, not elsewhere classified. - Bed requested for Telemetry/MedSurg (observation). - Status is Observation. sv - Condition is Fair. - Problem is an acute exacerbation. - Symptoms have improved. Signatures: Dispatcher [employer] Gabriella Godinez, ODILON RN sv Michael Tellez MD MD kdr Munoz, Edgar, RN RN Gabriella Dudley RN RN bb Martinez, Eric em1 Red Cano RN RN rr5 Corrections: (The following items were deleted from the chart) 09:11 07:59 Hospitalization Ordered by Raul Cox DO for Observation. Preliminary em1 diagnosis is Atrial fibrillation and flutter; Shortness of breath; Chest pain, unspecified; Lymphedema, not elsewhere classified. Bed requested for Telemetry/MedSurg (observation). Status is Observation. Condition is Fair. Problem is an acute exacerbation. Symptoms have improved. kdr 10:18 09:11 05/22/2020 07:59 Hospitalization Ordered by Raul Cox DO for Observation. sv Preliminary diagnosis is Atrial fibrillation and flutter; Shortness of breath; Chest pain, unspecified; Lymphedema, not elsewhere classified. Bed requested for Telemetry/MedSurg (observation). Status is Observation. Condition is Fair. Problem is an acute exacerbation. Symptoms have improved. em1
--- NOTE | 2020-05-22 08:00 | ER ---
Nurse's Notes [facility] Name: Emelia Payan Age: 79 yrs Sex: Female : 1940 Arrival Date: 05/22/2020 Time: 07:00 Bed 4 Private MD: Diagnosis: Atrial fibrillation and flutter;Shortness of breath;Chest pain, unspecified;Lymphedema, not elsewhere classified Presentation: 05/22 07:03 Chief complaint: EMS states: they were toned out for report of pt with chest pain and bb shortness of breath. Coronavirus screen: At this time, the client does not indicate any symptoms associated with coronavirus-19. Ebola Screen: No symptoms or risks identified at this time. Initial Sepsis Screen: Does the patient meet any 2 criteria? No. Patient's initial sepsis screen is negative. Does the patient have a suspected source of infection? No. Patient's initial sepsis screen is negative. Risk Assessment: Do you want to hurt yourself or someone else? Patient reports no desire to harm self or others. Onset of symptoms was May 22, 2020. 07:03 Method Of Arrival: EMS: [email or web address] bb 07:03 Acuity: EDIS 2 bb Historical: - Allergies: 07:07 Cipro; bb 07:07 Xarelto; bb - Home Meds: 09:12 sotalol 160 mg Oral tab 1 tab 2 times per day [Active]; Creon 36,000-114,000- 180,000 em unit Oral cpDR 1 cap 3 times per day [Active]; amlodipine 5 mg tab 1 tab once daily [Active]; Dexilant 60 mg Oral CpDB 1 cap once daily [Active]; fenofibrate 48 mg Oral 1 tab once daily [Active]; glipizide 2.5 mg Oral tr24 one tab M, W, F [Active]; hydrocortisone 10 mg Oral tab 2 tabs twice a day [Active]; levothyroxine 112 mcg tab 1 tab once daily [Active]; liothyronine 5 mcg Oral tab 1 tab once daily [Active]; losartan 100 mg Oral tab 1 tab once daily [Active]; lorazepam 0.5 mg Oral tab 2 times per day for Anxiety [Active]; Omnitrope 5 mg/1.5 mL (3.3 mg/mL) subcutaneous crtg once daily [Active]; Vitamin D3 50,000 units Oral tab twice a day [Active]; warfarin 2.5 mg Oral tab 1 tab once daily [Active]; - PMHx: 07:07 adrenal insuficiency; Anxiety; Atrial Fib; CHF; Diabetes - IDDM; DVT; Hyperlipidemia; bb Hypertension; Hypothyroidism; Pancreatitis; CVA; - PSHx: 07:07 Appendectomy; pituitary; Carpal Tunnel Repair; Lumpectomy; bb - Immunization history:: Adult Immunizations unknown. - Social history:: Smoking status: Patient denies any tobacco usage or history of. Screenin:03 Abuse screen: Denies threats or abuse. Denies injuries from another. Nutritional rr5 screening: No deficits noted. Tuberculosis screening: No symptoms or risk factors identified. Fall Risk IV access (20 points). Total Dickens Fall Scale indicates No Risk (0-24 pts). Assessment: 07:05 General: Appears in no apparent distress. comfortable, Behavior is calm, cooperative, em appropriate for age, Reports fever for. Pain: Complains of pain in mid-sternal area Pain radiates to left elbow Pain began "4-5 days ago". Neuro: Level of Consciousness is awake, alert, obeys commands. Cardiovascular: Capillary refill < 3 seconds Patient's skin is warm and dry. Rhythm is atrial fibrillation with rapid ventricular response. Respiratory: Reports shortness of breath at rest Airway is patent Respiratory effort is even, unlabored, Respiratory pattern is regular, symmetrical. GI: Reports nausea, Patient currently denies vomiting. Derm: Skin is intact, is fragile, is thin, Skin is pink, warm \\T\\ dry. Musculoskeletal: Capillary refill < 3 seconds, Range of motion: intact in all extremities. 07:17 Reassessment: Dr. Tellez at bedside. em 08:22 Reassessment: Dr. Cox at bedside. em 09:15 Reassessment: Patient appears in no apparent distress at this time. Patient and/or em family updated on plan of care and expected duration. Pain level reassessed. Patient is alert, oriented x 3, equal unlabored respirations, skin warm/dry/pink. Vital Signs: 07:03 BP 119 / 67; Pulse 116; Resp 16 S; Temp 96.6(TE); Pulse Ox 98% on R/A; Weight 80.74 kg bb (R); Height 5 ft. 4 in. (162.56 cm) (R); Pain 3/10; 08:22 BP 114 / 73; Pulse 116; Resp 20 S; Pulse Ox 97% on R/A; em 07:03 Body Mass Index 30.55 (80.74 kg, 162.56 cm) bb ED Course: 06:55 Maintain EMS IV. Dressing intact. Good blood return noted. Site clean \\T\\ dry. Gauge \\T\\ rr 5 site: G20 left AC. 07:00 Patient arrived in ED. cl3 07:00 EKG done, by ED staff. rr5 07:03 Patient has correct armband on for positive identification. Bed in low position. Call rr5 light in reach. Side rails up X2. electrical maintenance supervisor on. Pulse ox on. NIBP on. 07:04 Triage completed. bb 07:05 Patient maintains SpO2 saturation greater than 95% on room air. em 07:07 Arm band placed on Patient placed in an exam room, on a stretcher, on mock up builder, bb on pulse oximetry. EKG completed in triage. Results shown to MD. 07:14 Prabhu Arce, RN is Primary Nurse. em 07:25 Michael Tellez MD is Attending Physician. kdr 07:38 XRAY Chest (1 view) In Process Unspecified. EDMS 07:57 Raul Cox DO is Hospitalizing Provider. kdr 09:55 No provider procedures requiring assistance completed. Patient admitted, IV remains in em place. Administered Medications: 09:17 Drug: Sotalol 160 mg Route: PO; em 09:57 Follow up: Response: No adverse reaction em Outcome: 07:59 Decision to Hospitalize by Provider. kdr 09:55 Admitted to Med/surg accompanied by tech, via stretcher, room 210, with oxygen, Report em called to ODILON Rodriguez 09:55 Condition: good 09:55 Instructed on the need for admit, Demonstrated understanding of instructions. 10:18 Patient left the ED. sv Signatures: Dispatcher [employer] EDGabriella Linares, Michael Valladares RN, MD MD kdr Prabhu Arce RN RN em Gabriella Hutchins RN RN bb Red Cano RN RN rr5 Edmar Romero cl3
--- NOTE | 2020-05-22 08:50 | RAD REPORT ---
EXAM DESCRIPTION: RAD - Chest Single View - 05/22/2020 7:37 am CLINICAL HISTORY: CHEST PAIN Chest pain. COMPARISON: Chest Single View dated 04/29/2019; Chest Single View dated 04/25/2019; Chest Single View dated 10/26/2018; Chest Single View dated 10/08/2018 FINDINGS: Portable technique limits examination quality. Mild interstitial prominence is present bilaterally which may be interstitial pulmonary edema. The he art is mildly enlarged in size. Trace pleural effusions. No displaced fractures. IMPRESSION: Mild CHF.
[2020-05-22] MEDS ORDERED: SOTALOL HCL 80 MG TAB ONE ×2 (09:25→20:13)
[2020-05-22] MEDS ORDERED: clonazePAM 0.5 MG TAB PO PRN (10:03)
[2020-05-22] MEDS ORDERED: D5W 1,000 ML IV SCH (10:03)
[2020-05-22] MEDS ORDERED: ACETAMINOPHEN 500 MG TAB PO PRN (10:03)
[2020-05-22] MEDS ORDERED: ONDANSETRON 4 MG/2 ML VIAL IV PRN (10:03)
[2020-05-22] MEDS: AMLODIPINE 5 MG TAB PO SCH (10:54)
[2020-05-22] MEDS: LOSARTAN POTASSIUM 50 MG TABLET PO SCH (10:55)
[2020-05-22] MEDS: INSULIN -REGULAR HUMAN 50 UNIT/0.5 ML ML SQ SCH ×3 (10:55→21:00)
[2020-05-22] MEDS: LACTOBACILLUS/ACIDOPHILUS TAB PO SCH ×2 (11:03→21:06)
--- NOTE | 2020-05-22 11:27 | P.HP ---
Certification for Inpatient Patient admitted to: Observation With expected LOS: <2 Midnights Patient will require the following post-hospital care: None Practitioner: I am a practitioner with admitting privileges, knowledge of patient current condition, hospital course, and medical plan of care. Services: Services provided to patient in accordance with Admission requirements found in Title 42 Section 412.3 of the Code of Federal Regulations Patient History Date of Service: 05/22/20 Primary Care Provider: Dr. Iraheta, Cardiology-Dr. Belcher Reason for admission: Chest pain, Dyspnea with exertion History of Present Illness: 79-year-old female with multiple medical problems including atrial fibrillation on Coumadin, diabetes mellitus type 2, CHF, adrenal insufficiency. Patient reported increasing chest pain over the past several days. The pain comes and goes. It is a dull sensation to the substernal region. Patient also noted some shortness of breath with exertion. Patient has been under stress as is being evaluated for cancer. Today chest pain was severe. She decided come to the ER for further evaluation. In the ER patient was evaluated. Patient found in AFib with RVR with a rate around 120-130. Vital sign shows white count 7.2, hemoglobin 11.8. Sodium 150, potassium 3.0. BUN of 27, creatinine 0 point 1 5 with a GFR of 64. Glucose 147. Troponin 0.04. BNP 5000. INR 3.17. Chest x-ray unremarkable. Patient admitted for further evaluation observation. When I saw the patient ER, patient stable. Rate around 110. Allergies ciprofloxacin [From Cipro] Allergy (Verified 02/11/17 06:42) Unknown rivaroxaban [From Xarelto] Allergy (Verified 02/11/17 06:42) Unknown piperacillin [From Zosyn] Adverse Reaction (Verified 04/28/19 22:34) Hives/Rash tazobactam [From Zosyn] Adverse Reaction (Verified 04/28/19 22:34) Hives/Rash Home medications list reviewed: Yes Home Medications: Amlodipine [Norvasc*] 5 mg PO DAILY 10/06/18 Cholecalciferol (Vitamin D3) [Vitamin D3] 50,000 unit PO SEECOM 10/06/18 Dexlansoprazole [Dexilant] 60 mg PO DAILY 10/06/18 Losartan Potassium [Cozaar] 100 mg PO DAILY 10/06/18 Somatropin [Omnitrope] 0.3 mg SQ DAILY 10/06/18 Sotalol HCl [Betapace] 1 tab PO BID 10/06/18 Warfarin Sodium [Coumadin*] 3 mg PO DAILY 10/06/18 Buspirone HCl [Buspar*] 5 mg PO BID 04/25/19 Potassium Oral Tab [Klor-Con 10 mEq Tab*] 1 tab PO DAILY 04/25/19 clonazePAM [Klonopin*] 1 tab PO BID 04/25/19 Cefdinir [Cefdinir*] 300 mg PO BID #10 cap 04/27/19 Hydrocortisone [Cortef] 30 mg PO BID 04/27/19 Levothyroxine [Synthroid*] 0.112 mg PO DAILYAC 04/27/19 Liothyronine Sodium [Cytomel] 1 tab PO 0600 04/27/19 Methscopolamine 5 mg PO DAILY 04/27/19 - Past Medical/Surgical History Diabetic: Yes -: Diabetes mellitus type 2 -: History CVA 2012 -: HTN -: Anxiety -: History of pituitary gland removal -: GERD with history of GI bleed -: Hypothyroidism -: Chronic anti coagulation -: History atrial fibrillation -: Chronic steroids -: Adrenal insufficiency -: Hyperlipidemia -: hysterectomy -: bradley carpal tunnel sx -: L lumpectomy -: brain tumor removed- benign -: pituitary gland removal -: appendectomy Psychosocial/ Personal History: The patient is . She has 5 children. She does not work. - Family History Mother -: Heart disease, Hypertension Notes: of heart attack Father -: Heart disease Notes: of heart attack - Social History Smoking Status: Never smoker Alcohol use: No CD- Drugs: No Caffeine use: Yes Place of Residence: Home Review of Systems General: As per HPI Eyes: Unremarkable ENT: Unremarkable Respiratory: Shortness of Breath, SOB with Excertion, As per HPI Cardiovascular: Chest Pain, As per HPI Gastrointestinal: Diarrhea, As per HPI ( reports patient has had some diarrhea lately) Genitourinary: Unremarkable Musculoskeletal: Pedal edema, As per HPI (Patient has chronic lymphedema) Integumentary: Unremarkable Neurological: Unremarkable Lymphatics: Unremarkable Physical Examination - Vital Signs Temperature: 96.6 F Blood Pressure: 128/93 Pulse: 121 Respirations: 20 - Physical Exam General: Alert, In no apparent distress, Oriented x3, Cooperative HEENT: Atraumatic, Normocephalic, Other (Dry mucous membranes) Neck: Supple Respiratory: Clear to auscultation bilaterally Cardiovascular: Irregular heart rate/rhythm (AFib rate around 110-120) Gastrointestinal: Normal bowel sounds, Soft and benign, Non-distended, No tenderness, No masses, No rebound, No guarding Musculoskeletal: No erythema, No tenderness, No warmth Integumentary: No erythema, No warmth, No cyanosis, Tenderness/swelling (Mild pitting edema to the lower extremity. Patient with chronic lymphedema) Neurological: Normal speech, Normal strength at 5/5 x4 extr, Normal tone, Normal affect - Studies Laboratory Data (last 24 hrs) 05/22/20 07:00: PT 36.6 H, INR 3.17 05/22/20 07:00: WBC 7.2, Hgb 11.8 L, Hct 35.5 L, Plt Count 133 L 05/22/20 07:00: Sodium 150 H, Potassium 3.0 L, BUN 27 H, Creatinine 0.85, Glucose 147 H, Magnesium 2.0, Total Bilirubin 0.6, AST 14 L, ALT 22, Alkaline Phosphatase 56 Assessment and Plan - Plan Impression: Chest pain with shortness of breath likely related to atrial fibrillation with RVR, patient with chronic atrial fibrillation on chronic anti coagulation therapy-Coumadin Diarrhea with noted hypernatremia and hypokalemia Hypertension Diabetes mellitus type 2 [id number] GERD Adrenal insufficiency with history of pituitary gland removal Hypothyroidism Hyperlipidemia Depression with anxiety Plan: Chest pain with shortness of breath likely related to atrial fibrillation with RVR, patient with chronic atrial fibrillation on chronic anti coagulation therapy-Coumadin: Patient will be admitted for further evaluation and treatment. Will monitor cardiac enzymes and telemetry. Will order echocardiogram. Will consult cardiology for further recommendation. Will continue with home medication including sotalol 160 mg 1 pill twice daily and Coumadin 2.5 mg daily. Patient may need additional medication. Will discuss with cardiology. Patient reports diarrhea with electrolyte abnormalities. Will replace electrolytes. Will start D5 W. Will monitor diarrhea. Await further recommendations from cardiology. Anticipate improvement over the next 24 hr. Diarrhea with noted hypernatremia and hypokalemia: Will replace electrolytes. Will continue with IV fluids. Will recheck lab later today. Will monitor diarrhea. This appears improved. Hypertension: Restart home medication. Diabetes mellitus type 2 [id number]: Restart home medication. GERD: Restart home medication. Adrenal insufficiency with history of pituitary gland removal: Restart home medication. Hypothyroidism: Restart home medication. Hyperlipidemia: Restart home medication. Depression with anxiety: Restart home medication. Discharge Plan: Home Plan to discharge in: 24 Hours - Advance Directives Does patient have a Living Will: Yes Does patient have a Durable POA for Healthcare: Yes - Code Status/Comfort Care Code Status Assessed: Yes (Patient is do not resuscitate) Time Spent Managing Pts Care (In Minutes): 55
[2020-05-22 11:32] VITALS: BMI 30.5
[2020-05-22] MEDS ORDERED: POTASSIUM 25 MEQ EFFERV TAB PO ONE (12:00)
[2020-05-22] MEDS ORDERED: POTASSIUM CL SA 10 MEQ TAB PO ONE ×3 (12:00→22:43)
[2020-05-22] MEDS ORDERED: NITROGLYCERIN 0.4 MG/TAB SL ONE ×2 (13:08→13:21)
[2020-05-22] MEDS ORDERED: NITROGLYCERIN 0.4 MG/TAB SL PRN (13:12)
[2020-05-22] MEDS: HYDROCORTISONE 20 MG TABLET PO SCH ×2 (14:00→21:07)
[2020-05-22] MEDS ORDERED: DIGOXIN 0.25 MG/ML AMP IV SCH (16:00)
[2020-05-22 16:25] LABS: CKMB Creatine Kinase MB < 1.0 ng/mL (0.3-3.6); Creatine Phosphokinase 39 U/L (26-192); Troponin I 0.03 ng/mL (0.0-0.045)
[2020-05-22] MEDS ORDERED: WARFARIN SODIUM 2.5 MG TAB PO SCH (17:00)
[2020-05-22 17:13] LABS: Urine Appearance CLOUDY; Urine Bilirubin NEGATIVE (NEG); Urine Blood NEGATIVE (NEG); Urine Color DK YELLOW; Urine Glucose NEGATIVE (NEG); Urine Protein 1+ (NEG); Urine Specific Gravity 1.025 (1.005-1.030)
[2020-05-22 17:16] LABS: Urine Microscopic Reflex ORDER UMIC
[2020-05-22 17:24] LABS: Urine Bacteria 20-50 /HPF (<20); Urine Culture Reflex Order REFLEXED; Urine Mucus 2+ /HPF (NONE SEEN); Urine RBC <5 /HPF (NONE SEEN)
[2020-05-22] MEDS ORDERED: SOTALOL HCL 80 MG TAB PO SCH (18:00)
[2020-05-22] MEDS ORDERED: AMIODARONE HCL 900 MG in Dextrose 5%-Water 482 ML IV SCH (18:00)
[2020-05-22] MEDS: SOTALOL HCL 80 MG TAB PO SCH (20:03)
[2020-05-22] MEDS ORDERED: HYDROCORTISONE 30 MG PO SCH (21:00)
[2020-05-22] MEDS: LACTOBACILLUS/ACIDOPHILUS TAB ONE ×2 (21:02→21:05)
[2020-05-23 00:11] LABS: Potassium 3.9 mmol/L (3.5-5.1); Troponin I 0.04 ng/mL (0.0-0.045)
[2020-05-23 04:38] LABS: Absolute Lymphocytes (CBC) 0.8 K/uL (0.7-4.9); Basophils % 0.3 % (0-1.3); Hematocrit 33.4 % (36.0-45.0); Lymphocytes % 10.8 % (15.3-44.8); MPV 10.6 fL (7.6-11.3); RBC Red Blood Cell Count 3.47 M/uL (3.86-4.86)
[2020-05-23 04:47] LABS: Protime INR 2.17
[2020-05-23] MEDS ORDERED: SOTALOL HCL 80 MG TAB ONE (05:05)
[2020-05-23] MEDS ORDERED: AMLODIPINE 5 MG TAB ONE (05:05)
[2020-05-23] MEDS ORDERED: PANTOPRAZOLE 40MG TABLET PO ONE (05:05)
[2020-05-23] MEDS ORDERED: LOSARTAN POTASSIUM 50 MG TABLET ONE (05:12)
[2020-05-23 05:13] LABS: BUN Blood Urea Nitrogen 21 mg/dL (7-18); Bicarbonate 29 mmol/L (21-32); Glucose Level 120 mg/dL (74-106); HDL Cholesterol 32 mg/dL (40-60); LDL Cholesterol, Calculated 64 (<130); Magnesium 2.1 mg/dL (1.8-2.4); Potassium 4.2 mmol/L (3.5-5.1); Sodium Level 149 mmol/L (136-145)
[2020-05-23] MEDS ORDERED: LEVOTHYROXINE SOD 0.125 MG TAB ONE (05:13)
[2020-05-23] MEDS ORDERED: LIOTHYRONINE SOD 5 MCG TAB ONE (05:13)
[2020-05-23] MEDS: LOSARTAN POTASSIUM 50 MG TABLET PO SCH (05:24)
[2020-05-23] MEDS: AMLODIPINE 5 MG TAB PO SCH (05:24)
[2020-05-23] MEDS: SOTALOL HCL 80 MG TAB PO SCH (05:24)
[2020-05-23 05:26] LABS: Thyroid Stimulating Hormone < 0.005 uIU/mL (0.360-3.740)
[2020-05-23] MEDS ORDERED: NA CHLORIDE 0.9% 1,000 ML ONE (05:52)
[2020-05-23] MEDS ORDERED: LIOTHYRONINE SOD 5 MCG TAB PO SCH ×2 (06:00→09:00)
[2020-05-23] MEDS ORDERED: NA CHLORIDE 0.9% 1,000 ML IV SCH (06:00)
[2020-05-23] MEDS ORDERED: PANTOPRAZOLE 40MG TABLET PO SCH (06:30)
[2020-05-23] MEDS ORDERED: LEVOTHYROXINE SOD 0.025 MG TAB PO SCH (06:30)
--- NOTE | 2020-05-23 06:35 | ECHO ---
HEIGHT: 5 ft 4 in WEIGHT: 178 lb 0 oz DATE OF STUDY: 05/22/[address]: Raul Cox DO 2-DIMENSIONAL: YES M.MODE: YES DOPPLER: YES COLOR FLOW: YES TDS: YES PORTABLE: DEFINITY: BUBBLE STUDY: DIAGNOSIS: CHEST PAIN, SHORTNESS OF BREATH, ATRIAL FIBRILLATION CARDIAC HISTORY: CATHERIZATION: SURGERY: PROSTHETIC VALVE: PACEMAKER: MEASUREMENTS (cm) DIASTOLIC (NORMALS) SYSTOLIC (NORMALS) IVSd 1.2 (0.6-1.2) LA Diam 3.7 (1.9-4.0) LVEF 40% LVIDd 5.1 (3.5-5.7) LVIDs 4.1 (2.0-3.5) %FS 20% LVPWd 1.0 (0.6-1.2) Ao Diam 2.6 (2.0-3.7) 2 DIMENSIONAL ASSESSMENT: LIMITED STUDY RIGHT ATRIUM: LEFT ATRIUM: RIGHT VENTRICLE: LEFT VENTRICLE: TRICUSPID VALVE: MITRAL VALVE: PULMONIC VALVE: AORTIC VALVE: PERICARDIAL EFFUSION: AORTIC ROOT: LEFT VENTRICULAR WALL MOTION: DOPPLER/COLOR FLOW: COMMENTS: VERY LIMITED STUDY, UNABLE TO ACCURATELY EVALUATE LEFT VENTRICULAR FUNCTION. RECOMMEND REPEAT WITH CONTRAST. TECHNOLOGIST: PARVEEN KNAPP
[2020-05-23 07:46] LABS: CKMB Creatine Kinase MB < 1.0 ng/mL (0.3-3.6); Creatine Phosphokinase 29 U/L (26-192); Troponin I 0.02 ng/mL (0.0-0.045)
[2020-05-23] MEDS ORDERED: glipiZIDE 5 MG TAB PO SCH (08:00)
[2020-05-23] MEDS ORDERED: HEPA 1000U/500MLS 2,000 UNIT/1,000 ML BAG IV ONE (08:02)
[2020-05-23] MEDS ORDERED: HEPARIN 5000 UNIT/ML 1 ML VIAL ONE (08:02)
[2020-05-23] MEDS ORDERED: LIDOCAINE 1% 20 ML MDV ONE (08:02)
[2020-05-23] MEDS ORDERED: ATROPINE SULF 1 MG/10 ML SYR IV ONE (08:03)
[2020-05-23] MEDS ORDERED: NITROGLYCERIN 100 MCG/ML SYR (for cath lab use only) IV ONE (08:03)
[2020-05-23] MEDS ORDERED: NICARDIPINE HCL 25 MG/10 ML IV ONE (08:03)
[2020-05-23] MEDS ORDERED: HEPARIN 10,000 UNIT/10 ML VIAL IV ONE (08:03)
[2020-05-23] MEDS ORDERED: MIDAZOLAM HCL 2 MG/2 ML INJ ONE (08:49)
[2020-05-23] MEDS ORDERED: FENTANYL CITR 100 MCG/2 ML ONE (08:50)
[2020-05-23] MEDS ORDERED: FENOFIBRATE 160 MG TAB PO SCH (09:00)
[2020-05-23] MEDS ORDERED: OMNITROPE SQ SCH (09:00)
[2020-05-23] MEDS ORDERED: METHSCOPOLAMINE 5 MG PO SCH (09:00)
[2020-05-23] MEDS ORDERED: SOMATROPIN SQ SCH (09:00)
--- NOTE | 2020-05-23 09:23 | P.PN ---
Subjective Date of Service: 05/23/20 Primary Care Provider: Dr. Iraheta, Cardiology-Dr. Belcher Chief Complaint: Chest pain, Dyspnea with exertion Subjective: Improving, Doing well (Patient in normal sinus rhythm this morning. No need for amiodarone yesterday. Patient currently NPO in preparation for heart catheterization.) Physical Examination - Vital Signs Temperature: 98.7 F Blood Pressure: 106/48 Pulse: 110 Respirations: 22 Pulse Ox (%): 98 - Physical Exam General: Alert, Cooperative HEENT: Atraumatic Neck: Supple Respiratory: Clear to auscultation bilaterally, Normal air movement Cardiovascular: Normal pulses, Regular rate/rhythm Gastrointestinal: Normal bowel sounds, No masses, No rebound, No guarding Musculoskeletal: No erythema, No tenderness, No warmth Integumentary: No tenderness/swelling, No erythema, No warmth, No cyanosis Neurological: Normal speech, Normal strength at 5/5 x4 extr, Normal tone, Normal affect - Studies Medications List Reviewed: Yes Assessment & Plan Discharge Plan: Home Plan to discharge in: 24 Hours Physician Review Additional Text: Impression: Chest pain with shortness of breath likely related to atrial fibrillation with RVR, patient with chronic atrial fibrillation on chronic anti coagulation therapy-Coumadin Diarrhea with noted hypernatremia and hypokalemia Hypertension Diabetes mellitus type 2 [id number] GERD Adrenal insufficiency with history of pituitary gland removal Hypothyroidism Hyperlipidemia Depression with anxiety Plan: Chest pain with shortness of breath likely related to atrial fibrillation with RVR, patient with chronic atrial fibrillation on chronic anti coagulation therapy-Coumadin: Patient now in normal sinus rhythm. Patient remains on sotalol. No need for amiodarone. Patient NPO at this time. Cardiology plans for heart catheterization today. Await findings. Possible discharge as early as today if heart catheterization unremarkable. Will continue to monitor closely. Await recommendations by Cardiology. Note urinalysis shows possible bacteria. Patient asymptomatic. No need for treatment at this time. Will monitor this closely. Await urine culture results. Diarrhea with noted hypernatremia and hypokalemia: This appears resolved. Sodium improved. Patient now off IV fluids. Hypertension: Continue home medication. Diabetes mellitus type 2 [id number]: Contained home medication. GERD: Contained home medication. Adrenal insufficiency with history of pituitary gland removal: Contained home medication. Hypothyroidism: Continue home medication. Hyperlipidemia: Continue home medication. Depression with anxiety: Contained home medication. Time Spent Managing Pts Care (In Minutes): 55
--- NOTE | 2020-05-23 10:40 | P.DS ---
Admission Date: 05/22/20 Discharge Date: 05/23/20 Primary Care Provider: Dr. Iraheta, Cardiology-Dr. Belcher Disposition: ROUTINE DISCHARGE Discharge Condition: GOOD Reason for Admission: Chest pain, Dyspnea with exertion Consultations: Cardiology-Dr. Hall Procedures: ECHO: Injection fraction 40% LEFT VENTRICULAR WALL MOTION: DOPPLER/COLOR FLOW: COMMENTS: VERY LIMITED STUDY, UNABLE TO ACCURATELY EVALUATE LEFT VENTRICULAR FUNCTION. RECOMMEND REPEAT WITH CONTRAST. Heart Cath: Unremarkable Medical problem list: Chest pain with shortness of breath likely related to atrial fibrillation with RVR, patient with chronic atrial fibrillation on chronic anti coagulation therapy-Coumadin Diarrhea with noted hypernatremia and hypokalemia Hypertension Diabetes mellitus type 2 afs-krbyjxj-zacdmcsic GERD Adrenal insufficiency with history of pituitary gland removal Hypothyroidism Hyperlipidemia Depression with anxiety Brief History of Present Illness: 79-year-old female with multiple medical problems including atrial fibrillation on Coumadin, diabetes mellitus type 2, CHF, adrenal insufficiency. Patient reported increasing chest pain over the past several days. The pain comes and goes. It is a dull sensation to the substernal region. Patient also noted some shortness of breath with exertion. Patient has been under stress as is being evaluated for cancer. Today chest pain was severe. She de cided come to the ER for further evaluation. In the ER patient was evaluated. Patient found in AFib with RVR with a rate around 120-130. Vital sign shows white count 7.2, hemoglobin 11.8. Sodium 150, potassium 3.0. BUN of 27, creatinine 0 point 1 5 with a GFR of 64. Glucose 147. Troponin 0.04. BNP 5000. INR 3.17. Chest x-ray unremarkable. Patient admitted for further evaluation observation. When I saw the patient ER, patient stable. Rate around 110. Hospital Course: Patient presented with chest pain and shortness of breath. Patient was found to have atrial fibrillation with RVR. Patient with history of chronic atrial fibrillation on chronic anti coagulation therapy. Her medications were restarted. This included sotalol 160 mg 1 pill twice daily. Her heart rate was initially in the 120s to 140s. Cardiology was consulted to further evaluate. There was some consideration of switching her over to amiodarone but the patient converted to normal sinus rhythm. Cardiology recommended further cardiac evaluation. This included a heart catheterization. Heart catheterization performed. No evidence of significant disease noted. No intervention was further required. Patient has done well. No chest pain noted. At discharge patient will continue with sotalol 160 mg 1 pill twice daily. Patient will also continue with Coumadin as directed. Recommend follow up with cardiology in 1-2 weeks to follow up this hospitalization. Recommend to recheck INR in 1 week to monitor progress. Recommend to maintain INR between 2 and 3. Further adjustmen t in medication can be done by cardiology. Patient had reported some diarrhea prior to admission. Patient was slightly hypernatremic and hypokalemic. Electrolytes replaced. Sodium level improved. Patient without any further diarrhea. At discharge this can be further monitored. Patient may take lactobacillus over the counter twice a day. Recommend to recheck lab-BMP in 1-2 weeks to follow up her electrolytes. Patient with hypertension. This has remained stable. At discharge she will continue with Norvasc 5 mg daily and losartan 100 mg daily. Recommend to maintain blood pressure less 150/80. Further adjustment can be done by her PCP. Recommend to hold medication if blood pressure less than 110 systolic. Patient with diabetes mellitus type 2 non-insulin dependent. This has remained stable. At discharge she will continue with her oral medication. Recommend to maintain blood sugar less than 140 fasting and less than 200 after meals. Further adjustment can be done by her PCP. Patient with history of adrenal insufficiency and pituitary gland removal. Patient also with hypothyroidism. At discharge she will continue with her hydrocortisone, Cytomel, Omnitrope, and levothyroxine. Recommend follow up with Endocrinology to further monitor and adjust medication. Upon Patient with GERD. This has remained stable. At discharge she will continue with Dexilant 60 mg daily. Patient with depression with anxiety. At discharge she may continue with her medication including clonazepam 0.5 mg twice daily as needed for anxiety. Vital Signs/Physical Exam: Temp Pulse Resp BP Pulse Ox 98.7 F 110 H 22 H 106/48 L 98 05/23/20 09:22 05/23/20 09:22 05/23/20 09:22 05/23/20 09:22 05/23/20 09:22 General: Alert, In no apparent distress, Oriented x3, Cooperative HEENT: Atraumatic Neck: Supple Respiratory: Clear to auscultation bilaterally, Normal air movement Cardiovascular: Normal pulses, Regular rate/rhythm Gastrointestinal: Normal bowel sounds, No tenderness, No masses, No rebound, No guarding Neurological: Normal speech, Normal strength at 5/5 x4 extr, Normal tone, Normal affect Laboratory Data at Discharge: WBC 7.2 K/uL (4.3-10.9) 05/23/20 04:08 Hgb 11.1 g/dL (12.0-15.0) L 05/23/20 04:08 Hct 33.4 % (36.0-45.0) L 05/23/20 04:08 Plt Count 115 K/uL (152-406) L 05/23/20 04:08 PT 25.2 SECONDS (9.5-12.5) H 05/23/20 04:08 INR 2.17 05/23/20 04:08 Sodium 149 mmol/L (136-145) H 05/23/20 04:08 Potassium 4.2 mmol/L (3.5-5.1) 05/23/20 04:08 BUN 21 mg/dL (7-18) H 05/23/20 04:08 Creatinine 0.79 mg/dL (0.55-1.3) 05/23/20 04:08 Glucose 120 mg/dL (74-106) H 05/23/20 04:08 Magnesium 2.1 mg/dL (1.8-2.4) 05/23/20 04:08 Total Bilirubin 0.6 mg/dL (0.2-1.0) 05/22/20 07:00 AST 14 U/L (15-37) L 05/22/20 07:00 ALT 22 U/L (12-78) 05/22/20 07:00 Alkaline Phosphatase 56 U/L (45-117) 05/22/20 07:00 Troponin I 0.02 ng/mL (0.0-0.045) 05/23/20 04:08 Triglycerides 187 mg/dL (<150) H 05/23/20 04:08 Cholesterol 133 mg/dL (<200) 05/23/20 04:08 HDL Cholesterol 32 mg/dL (40-60) L 05/23/20 04:08 Cholesterol/HDL Ratio 4.16 05/23/20 04:08 Home Medications: Amlodipine [Norvasc*] 5 mg PO DAILY 10/06/18 Cholecalciferol (Vitamin D3) [Vitamin D3] 50,000 unit PO SEECOM 10/06/18 Dexlansoprazole [Dexilant] 60 mg PO DAILY 10/06/18 Losartan Potassium [Cozaar] 100 mg PO DAILY 10/06/18 Somatropin [Omnitrope] 0.3 mg SQ DAILY 10/06/18 Sotalol HCl [Betapace] 1 tab PO BID 10/06/18 Warfarin Sodium [Coumadin*] 2.5 mg PO DAILY 10/06/18 Potassium Oral Tab [Klor-Con 10 mEq Tab*] 1 tab PO DAILY 04/25/19 clonazePAM [Klonopin*] 1 tab PO BID 04/25/19 Hydrocortisone [Cortef] 30 mg PO BID 04/27/19 Levothyroxine [Synthroid*] 125 mcg PO DAILYAC 04/27/19 Liothyronine Sodium [Cytomel] 1 tab PO 0600 04/27/19 Methscopolamine 5 mg PO DAILY 04/27/19 Fenofibrate [Tricor*] 1 tab PO DAILY 05/22/20 Glipizide [Glipizide Xl] 2 tab PO DAILY 05/22/20 Liothyronine Sodium [Cytomel] 5 mcg PO DIRECTED 05/22/20 Lactobacillus Acidophilus [Acidophilus Lactobacilli] 1 each PO BID #60 capsule 05/23/20 New Medications: Lactobacillus Acidophilus [Acidophilus Lactobacilli] 1 each PO BID #60 capsule Patient Discharge Instructions: 1. Recommend follow up with PCP in 1 week to follow up this hospitalization. 2. Patient presented with chest pain and shortness of breath. Patient was found to have atrial fibrillation with RVR. Patient with history of chronic atrial fibrillation on chronic anti coagulation therapy. Her medications were restarted. This included sotalol 160 mg 1 pill twice daily. Her heart rate was initially in the 120s to 140s. Cardiology was consulted to further evaluate. There was some consideration of switching her over to amiodarone but the patient converted to normal sinus rhythm. Cardiology recommended further cardiac evaluation. This included a heart catheterization. Heart catheterization performed. No evidence of significant disease noted. No intervention was further required. Patient has done well. No chest pain noted. At discharge patient will continue with sotalol 160 mg 1 pill twice daily. Patient will also continue with Coumadin as directed. Recommend follow up with cardiology in 1-2 weeks to follow up this hospitalization. Recommend to recheck INR in 1 week to monitor progress. Recommend to maintain INR between 2 and 3. Further adjustment in medication can be done by cardiology. 3. Patient had reported some diarrhea prior to admission. Patient was slightly hypernatremic and hypokalemic. Electrolytes replaced. Sodium level improved. Patient without any further diarrhea. At discharge this can be further monitored. Patient may take lactobacillus over the counter twice a day. Recommend to recheck lab-BMP in 1-2 weeks to follow up her electrolytes. 4. Patient with hypertension. This has remained stable. At discharge she will continue with Norvasc 5 mg daily and losartan 100 mg daily. Recommend to maintain blood pressure less 150/80. Further adjustment can be done by her PCP. Recommend to hold medication if blood pressure less than 110 systolic. 5. Patient with diabetes mellitus type 2 non-insulin dependent. This has remained stable. At discharge she will continue with her oral medication. Recommend to maintain blood sugar less than 140 fasting and less than 200 after meals. Further adjustment can be done by her PCP. 6. Patient with history of adrenal insufficiency and pituitary gland removal. Patient also with hypothyroidism. At discharge she will continue with her hydrocortisone, Cytomel, Omnitrope, and levothyroxine. Recommend follow up with Endocrinology to further monitor and adjust medication. Upon. 7. Patient with GERD. This has remained stable. At discharge she will continue with Dexilant 60 mg daily. 8. Patient with depression with anxiety. At discharge she may continue with her medication including clonazepam 0.5 mg twice daily as needed for anxiety. Diet: AHA Activity: Fall precautions Time spent managing pt's care (in minutes): 55
[2020-05-23 12:42] VITALS: O2SAT 96
[2020-05-23 13:30] VITALS: BP 148/79
[2020-05-23 13:31] VITALS: TEMP 98.2
[2020-05-24] MEDS ORDERED: LIOTHYRONINE SOD 5 MCG TAB PO SCH ×2 (06:00→09:00)
== END 2020-05-23 13:20 | disposition home or self-care (01) ==
LOC: ER 06:54 → ERHOLD 09:07 → 2ND 09:55 → ERHOLD 17:08
PROVIDERS: ADMIT Family Medicine; ATTEND Family Medicine
DX: R07.9 Chest pain, unspecified (principal); R06.02 Shortness of breath; I48.20 Chronic atrial fibrillation, unspecified; E27.40 Unspecified adrenocortical insufficiency; R19.7 Diarrhea, unspecified; E87.0 Hyperosmolality and hypernatremia; E87.6 Hypokalemia; I11.0 Hypertensive heart disease with heart failure; I50.9 Heart failure, unspecified; E11.9 Type 2 diabetes mellitus without complications; K21.9 Gastro-esophageal reflux disease without esophagitis; E03.9 Hypothyroidism, unspecified; E78.5 Hyperlipidemia, unspecified; F41.8 Other specified anxiety disorders; E89.3 Postprocedural hypopituitarism; I48.92 Unspecified atrial flutter; I89.0 Lymphedema, not elsewhere classified; Z79.01 Long term (current) use of anticoagulants; Z88.3 Allergy status to other anti-infective agents; Z88.8 Allergy status to other drugs, medicaments and biological substances; Z86.73 Personal history of transient ischemic attack (TIA), and cerebral infarction without residual deficits; Z66 Do not resuscitate; Z20.828 Contact with and (suspected) exposure to other viral communicable diseases
CPT/HCPCS: 93005 ×2; 93306; 87088; 85025 ×2; 87086; 80048 ×3; 36415 ×2; 83735 ×2; 82550 ×2; 84132; 85610 ×2; 80061; 82947 ×3; 80076; 84443; 87077 ×2; 87186 ×2; 84484 ×4; 82553 ×2; 84439; 83880; 71045; 93454; 99285; U0002; C1893; J1160; J1644 ×2; J2250; J3010; G0378 ×4; J7030; J2405; 81003; 81015; J0282; J7060

== ENCOUNTER 2020-05-25 08:51 | Observation (INO) | payer OTHER ==
--- OUTSIDE RECORDS SUMMARY | 2020-05-25 08:54 | XMS REPORT | Clinical Summary ---
:1940 Author Organization [facility] Address [address] [place] [address] Care Team Providers Name Role Phone Dany Iraheta MD Primary Care Provider [phone] Allergies Active Allergy Reactions Severity Noted Date [...] VACCINE (#1) 2020 Results Not on fileafter 05/25/2019 Insurance Payer Benefit Plan / Group Subscriber ID Type Phone A ddress MEDICARE MEDICARE A B xxxxxxxxxxx Medicare A[employer] - [place]GD CARE AET[employer] INDEMNITY NON CONTR xxxxxxxxxx Comm Advance Directives For more information, please contact:[address] [phone] Code Status Date Activated Date Inactivated Comments Full Code 01/14/2018 12:36 AM 01/18/2018 6:55 PM This code status was determined by: Patient
--- OUTSIDE RECORDS SUMMARY | 2020-05-25 08:55 | XMS REPORT | Continuity of Care Document ---
:1940 Author Organization [facility] t Address Formerly [facility] [place] [address] Care Team Providers Name Role Phone Juanpablo [...] is 01[facility]14 [facility] 00 [place] Sepsis Sepsis Disease Active [facility] 00 [place] Paroxysmal Paroxysmal Disease Active [facility] A-fib A-fib 01-14 [facility] - [facility]: [facility] 00 [place] Allergies, Adverse Reactions, Alerts Allergy Allergy Status Severity Reaction(s) Onset Inactive Treating Comm ents Source Name Type Date Date Clinician Ciproflo Propensi Active Itching [facility]14 [facility] - adverse 00:00: Medical reaction 00 [place] Rivaroxa Drug Active Other (See Internal [facility] ban Intolera Comments) 01-14 bleeding Mindy es - nce 00:00: Medical 00 [place] Family History Family Member Diagnosis Comments Start Date Stop Date Source Natural father Heart disease [facility] Natural mother Heart disease [facility] Social History Social Habit Start Date Stop Date Quantity Comments Source Sex Assigned At [facility] Smoking Status Start Date Stop Date Source Never smoker [facility] edical [place] Medications Ordered Filled Start Stop Current Ordering Indication Dosage Frequency Signature Comments Components Source Medication Medication Date Date Medication? Clinician (SIG) Name Name amLODIPine Yes 5mg QD Take [address] (NORVASC) 5 3-07 by mouth Luke s - MG tablet 12:12: daily. Medica l 27 [place] losartan Yes 100mg QD Take [address] (COZAAR) 3-07 mg by [facility] - 100 MG 12:12: mouth Medical tablet 27 daily. [place] methscopola Yes 5mg QD Take [address] mine 3-07 by mouth [facility] - (PAMINE 12:12: nightly. Medica l FORTE) 5 MG 27 [place] tablet hydrocortis Yes 10mg Q.5D Take [address] one 7-10 by mouth 2 [facility] - (CORTEF) 20 09:35: (two) Medic al MG tablet 53 times Center daily . somatropin Yes Inject [facility] 5 mg/1.5 mL 7-09 subcutaneo Domitila kes - (3.3 mg/mL) 14:15: usly. Medic al PnIj 03 [place] potassium Yes 10meq QD Take [address] chloride 7-09 mEq by [facility] - (KLOR-CON) 14:11: mouth Medica l 10 MEQ CR 56 daily. [place] tablet LORazepam Yes .5mg Take 0.[address] (ATIVAN) 7-09 mg by [facility] - 0.5 MG 14:11: mouth as Medical tablet 56 needed for Center Anxiety. cholecalcif Yes 59765L Take [facility] ghada, 7- 50,000 [facility] - vitamin D3, 14:11: Units by Wy dical 50,000 unit 55 mouth once Ce nter Tab every 2 weeks. fenofibrate Yes 48mg QD Take [address] (TRICOR) 48 7-09 by mouth Luke s - MG tablet 14:11: daily. Medica l 55 [place] omeprazole Yes 40mg QD Take [address] (PRILOSEC) 7-09 by mouth [facility] - 40 MG 14:11: daily. Medical capsule 55 [place] glipiZIDE Yes 5mg QD Take 2 [facility] [...] 00 daily . Center gabapentin Yes 600mg Q.[id number] Take [address] (NEURONTIN) 4-16 [id number] mg by L ukes - 600 MG [...] SOURCE(BEAKER) (test code = 2795) Urine, Voided [id number] 13:11:00 Test Item Value Reference Range Interpretation Comments LIPASE (BEAKER) (test code = 749) 45 U/L 8-78 BASIC METABOLIC [id number] 13:11:00 Test Item Value Reference Range Interpretation [...] APPLICABLE FOR DIALYSIS PATIEN TS. HEPATIC FUNCTION [id number] 13:11:00 Test Item Value Reference Range Interpretation [...] (test code = 14 U/L 6-55 347) [id number] 13:02:00 Test Item Value Reference Range Interpretation [...] PERCENT (BEAKER) (test code = 2801) TISSUE [id number] 13:06:00Surgical Pathology Report Case: [id number] Authorizing Provider: Luiz Hayes Collected: 03/14/2018 1115 Ordering Location: [facility] Endoscopy Received: 03/14/2018 1351 Services Pathologist: Mara Barboza MD Specimens: A) -Polyp, Duodenum B) - Stomach, Antrum, bx C) - Biopsy, Gastric, gastric body D) - Biopsy, Esophagus, random THIS ADDENDUM IS ISSUED TO REPORT THE RESULT OF IMMUNOHISTOCHEMICAL STUDY FOR HELICOBACTER PYLORI OM SPECIMEN B: - NEGATIVE CPT CODE: [id number] electronically signed by Mara Barboza MD on [...] MALIGNANCY SEEN Signing Pathologist Direct Phone Line: [phone] signed by Mara Barboza MD on 03/17/2018 at 10:35 PM06055 X 4; [id number] X 2A. Polyp, duodenum. B. Stomach antrum. [...] the diagnostic report above:AMBER X 2 POCT-GLUCOSE [id number] 12:41:00 Test Item Value Reference Range Interpretation Comments POC-GLUCOSE METER 75 mg/dL 70-110 TESTED AT [place] [address] ([facility]) (test code = [facility] [address] 1538) BLOOD [id number] 06:00:00 Test Item Value Reference Range Interpretation Comments CULTURE (BEAKER) (test No growth in 5 days code = 1095) BLOOD [id number] 06:00:00 Test Item Value Reference Range Interpretation Comments CULTURE (BEAKER) (test No growth in 5 days code = 1095) POCT-GLUCOSE [id number] 12:32:00 Test Item Value Reference Range Interpretation Comments POC-GLUCOSE METER 217 mg/dL 70-110 H TESTED AT [place] [address] ([facility]) (test code = [facility] 1538) [address] POCT-GLUCOSE [id number] 08:36:00 Test Item Value Reference Range Interpretation Comments POC-GLUCOSE METER 92 mg/dL 70-110 TESTED AT [place] [address] ([facility]) (test code = [facility] [address] 1538) COMPREHENSIVE METABOLIC [id number] 04:59:00 Test Item Value Reference Range Interpretation [...] S NOT APPLICABLE FOR DIALYSIS PATIEN TS. [id number] 04:50:00 Test Item Value Reference Range Interpretation Comments MAGNESIUM (BEAKER) (test code = 1.7 mg/dL 1.6-2.6 627) PROTHROMBIN [id number] 04:35:00 Test Item Value Reference Range Interpretation [...] PERCENT (BEAKER) (test code = 2801) POCT-GLUCOSE [id number] 22:13:00 Test Item Value Reference Range Interpretation Comments POC-GLUCOSE METER 194 mg/dL 70-[address] [facility] [address] (BEAKER) (test code = [facility] 1538) [address] POCT-GLUCOSE [id number] 18:14:00 Test Item Value Reference Range Interpretation Comments POC-GLUCOSE METER 195 mg/dL 70-[address] [facility] 67 (BEAKER) (test code = [facility] 1538) [address] POCT-GLUCOSE [id number] 12:20:00 Test Item Value Reference Range Interpretation Comments POC-GLUCOSE METER 224 mg/dL 70-110 H TESTED AT [place] [address] (BEAKER) (test code = [facility] 1538) [address] [id number] 08:55:00 Test Item Value Reference Range Interpretation Comments LIPASE (BEAKER) (test code = 749) 471 U/L 8-78 H POCT-GLUCOSE [id number] 08:12:00 Test Item Value Reference Range Interpretation Comments POC-GLUCOSE METER 128 mg/dL 70-110 H TESTED AT [place] [address] (BEAKER) (test code = [facility] 1538) [address]62 [id number] 04:12:00 Test Item Value Reference Range Interpretation Comments T3 TOTAL (BEAKER) (test code = 656) 41 ng/dL 48-159 L T3, [id number] 04:11:00 Test Item Value Reference Range Interpretation Comments T3 FREE (BEAKER) (test code = 908) 1.31 pg/mL 1.71-3.71 L COMPREHENSIVE METABOLIC [id number] 04:01:00 Test Item Value Reference Range Interpretation [...] S NOT APPLICABLE FOR DIALYSIS PATIEN TS. [id number] 03:54:00 Test Item Value Reference Range Interpretation Comments MAGNESIUM (BEAKER) (test code = 1.7 mg/dL 1.6-2.6 627) PROTHROMBIN [id number] 03:53:00 Test Item Value Reference Range Interpretation [...] % 0-1 PERCENT (BEAKER) (test code = 2805) POCT-GLUCOSE [id number] 22:34:00 Test Item Value Reference Range Interpretation Comments POC-GLUCOSE METER 252 mg/dL 70-[address] [facility] [address] (BEAKER) (test code = [place] 1538) [address] [id number] 19:36:00 Test Item Value Reference Range Interpretation Comments MAGNESIUM (BEAKER) (test code = 1.6 mg/dL 1.6-2.6 627) BASIC METABOLIC [id number] 19:36:00 Test Item Value Reference Range Interpretation [...] NOT APPLICABLE FOR DIALYSIS PATIEN TS. URINE [id number] 11:51:00 Test Item Value Reference Range Interpretation Comments CULTURE (BEAKER) (test code = 1095) No growth POCT-GLUCOSE [id number] 11:42:00 Test Item Value Reference Range Interpretation Comments POC-GLUCOSE METER 205 mg/dL 70-[address] [facility] [address] [facility] (test code = [place] 1538) [address] POCT-GLUCOSE [id number] 08:08:00 Test Item Value Reference Range Interpretation Comments POC-GLUCOSE METER 119 mg/dL 70-[address] [facility] [address] ([employer]) (test code = [place] 1538) [address] C. DIFFICILE GDH [id number] 07:40:00 Test Item Value Reference Range Interpretation Comments CDT TOXIN (test code Negative Negative = [id number]) CDT GDH ANTIGEN Positive Negative A C. difficile present but (test code = toxin not detec leesa. [id number]) Indicates colon ization with non-toxige lizbeth strain [...] [facility] prior to clinical use.POCT-GLUCOSE [id number] 06:37:00 Test Item Value Reference Range Interpretation Comments POC-GLUCOSE METER 141 mg/dL 70-[address] [facility] [address] (BEAKER) (test code = [place] 1538) [address] COMPREHENSIVE METABOLIC [id number] 04:48:00 Test Item Value Reference Range Interpretation [...] NOT APPLICABLE FOR DIALYSIS PATIEN TS. PROTHROMBIN [id number] 04:40:00 Test Item Value Reference Range Interpretation Comments PROTIME (BEAKER) (test code = 23.8 seconds 11.7-14.7 H 759) INR (BEAKER) (test code = 370) 2.1 <=5.9 RECOMMENDED COUMADIN/WARFARIN INR THERAPY RANGESSTANDARD DOSE: 2.0 - 3.0 Includes: PROPHYLAXIS forvenous thrombosis, systemic embolization; TREATMENT for venous thrombosis and/or pulmonary embolus.HIGH RISK: Target INR is 2.5-3.5 for patients with mechanical heart valves.While on warfarin.[id number] 04:29:00 Test Item Value Reference Range Interpretation Comments MAGNESIUM (BEAKER) (test code = 2.0 mg/dL 1.6-2.6 627) CBC W/PLT COUNT & AUTO [id number] 04:11:00 Test Item Value Reference Range Interpretation [...] PERCENT (BEAKER) (test code = 2801) POCT-GLUCOSE [id number] 22:19:00 Test Item Value Reference Range Interpretation Comments POC-GLUCOSE METER 266 mg/dL 70-[address] [facility] 67 (BEAKER) (test code = [facility] 1538) [address] [id number] 17:54:00 Test Item Value Reference Range Interpretation Comments POTASSIUM (BEAKER) (test code = 4.2 meq/L 3.5-5.1 379) [id number] 17:23:00 Test Item Value Reference Range Interpretation Comments MAGNESIUM (BEAKER) (test code = 1.7 mg/dL 1.6-2.6 627) POCT-GLUCOSE [id number] 12:41:00 Test Item Value Reference Range Interpretation Comments POC-GLUCOSE METER 111 mg/dL 70-[address] [facility] [address] (BEAKER) (test code = [facility] 1538) [address] [id number] 12:40:00 Test Item Value Reference Range Interpretation Comments POTASSIUM (BEAKER) (test code = 3.5 meq/L 3.5-5.1 379) POCT-GLUCOSE [id number] 10:05:00 Test Item Value Reference Range Interpretation Comments POC-GLUCOSE METER 94 mg/dL 70-[address] [facility] [address] (BEAKER) (test code = [place] [address] 1538) COMPREHENSIVE METABOLIC [id number] 05:47:00 Test Item Value Reference Range Interpretation [...] S NOT APPLICABLE FOR DIALYSIS PATIEN TS. [id number] 05:44:00 Test Item Value Reference Range Interpretation Comments MAGNESIUM (BEAKER) (test code = 2.0 mg/dL 1.6-2.6 627) PROTHROMBIN [id number] 05:37:00 Test Item Value Reference Range Interpretation Comments PROTIME (BEAKER) (test code = 24.0 seconds 11.7-14.7 H 759) INR (BEAKER) (test code = 370) 2.2 <=5.9 RECOMMENDED COUMADIN/WARFARIN INR THERAPY RANGESSTANDARD DOSE: 2.0 - 3.0 Includes: PROPHYLAXIS forvenous thrombosis, systemic embolization; TREATMENT for venous thrombosis and/or pulmonary embolus.HIGH RISK: Target INR is 2.5-3.5 for patients with mechanical heart valves.PROTHROMBIN [id number] 05:36:00 Test Item Value Reference Range Interpretation [...] valves.While on warfarin.CBC W/PLT COUNT & AUTO [id number] 05:35:00 Test Item Value Reference Range Interpretation [...] PERCENT (BEAKER) (test code = 2801) POCT-GLUCOSE [id number] 23:56:00 Test Item Value Reference Range Interpretation Comments POC-GLUCOSE METER 105 mg/dL 70-[address] [facility] [address] ([facility]) (test code = [facility] 1538) [address] TROPONIN [id number] 13:02:00 Test Item Value Reference Range Interpretation Comments TROPONIN I ([facility]) (test code = 0.02 ng/mL [...] 0-100 H (test code = 700) POCT-GLUCOSE [id number] 12:18:00 Test Item Value Reference Range Interpretation Comments POC-GLUCOSE METER 175 mg/dL 70-[address] [facility] [address] (MATTHEW) (test code = [place] 1538) [address] U/S, ABDOMINAL, [id number] 10:23:00Abdomen limited area? Add comment if clarification [...] MDReport Verified Date/Time: 01/14/2018 10:23:02 Reading Location: [facility] C0X [facility] Consult Reading Room T4, [id number] 08:42:00 Test Item Value Reference Range Interpretation Comments FREE T4 (BEAKER) (test code = 655) 0.83 ng/dL 0.70-1.48 POCT-GLUCOSE [id number] 08:37:00 Test Item Value Reference Range Interpretation Comments POC-GLUCOSE METER 161 mg/dL 70-[address] [facility] [address] (BEAKER) (test code = [place] 1538) [address] TSH/FREE T4 IF [id number] 08:05:00 Test Item Value Reference Range Interpretation Comments THYROID STIMULATING HORMONE 0.02 uIU/mL 0.35-4.94 L (BEAKER) (test code = 772) VITAMIN B12 AND [id number] 07:42:00 Test Item Value Reference Range Interpretation Comments VITAMIN B12 (BEAKER) (test code = 1276 pg/mL 213-816 H 774) FOLATE (BEAKER) (test code = 362) 8.8 ng/mL >=7.0 LIPID [id number] 07:14:00 Test Item Value Reference Range Interpretation Comments TRIGLYCERIDES (BEAKER) (test code = 171 mg/dL 540) CHOLESTEROL (BEAKER) (test code = 123 mg/dL 631) HDL CHOLESTEROL (BEAKER) (test code 25 mg/dL = 976) LDL CHOLESTEROL CALCULATED (AKER) 64 mg/dL (test code = 633) Triglyceride Reference Range: Low Risk <150 Borderline 150-199 High Risk 200-499 Very High Risk >=500Cholesterol Reference Range: Low Risk <200 Borderline 200-239 High Risk >240HDL Cholesterol Reference Range: Low Risk >=60 High Risk <40LDL Cholesterol Reference Range: Optimal <100 Near Optimal 100-129 Borderline 130-159 High 160-189 Very High >=190TROPONIN [id number] 07:12:00 Test Item Value Reference Range Interpretation [...] acute neurological disease, and persistent tachyarrhythmia.URINALYSIS W/ [id number] 06:35:00 Test Item Value Reference Range Interpretation [...] 517) SOURCE(BEAKER) (test code = Urine, [place] 2795) [id number] 06:07:00 Test Item Value Reference Range Interpretation Comments MAGNESIUM (BEAKER) (test code = 1.8 mg/dL 1.6-2.6 627) [id number] 05:32:00 Test Item Value Reference Range Interpretation Comments MAGNESIUM (BEAKER) (test code = 2.5 mg/dL 1.6-2.6 627) COMPREHENSIVE METABOLIC [id number] 05:32:00 Test Item Value Reference Range Interpretation [...] NOT APPLICABLE FOR DIALYSIS PATIEN TS. PROTHROMBIN [id number] 05:10:00 Test Item Value Reference Range Interpretation [...] 0-1 PERCENT (BEAKER) (test code = 2801) [id number] 02:52:00 Test Item Value Reference Range Interpretation Comments PROCALCITONIN (BEAKER) (test code 0.41 ng/mL <0.05 H = 3036) SEPSIS RISK (ng/mL)Low: 0.05-0.50Intermediate: 0.51-2.00High: >=2.01LACTIC ACID, VENOUS, WHOLE [id number] 02:06:00 Test Item Value Reference Range Interpretation Comments LACTATE BLOOD VENOUS 1.3 mmol/L 0.5-2.2 Specime n slightly (2) (BEAKER) (test hemolyzed code = 2872) Effective 01/07/2016: Units/Reference Range ChangeNew: 0.5-2.2 mmol/L Previous: 5-20 mg/dLCOMPREHENSIVE METABOLIC [id number] 02:06:00 Test Item Value Reference Range Interpretation [...] S NOT APPLICABLE FOR DIALYSIS PATIEN TS. [id number] 02:04:00 Test Item Value Reference Range Interpretation Comments LIPASE (BEAKER) (test code = 749) 730 U/L 8-78 H [id number] 02:04:00 Test Item Value Reference Range Interpretation Comments AMYLASE (BEAKER) (test code = 349) 226 U/L 25-125 H PROTHROMBIN [id number] 01:45:00 Test Item Value Reference Range Interpretation Comments PROTIME (BEAKER) (test code = 23.9 seconds 11.7-14.7 H 759) INR (BEAKER) (test code = 370) 2.1 <=5.9 RECOMMENDED COUMADIN/WARFARIN INR THERAPY RANGESSTANDARD DOSE: 2.0 - 3.0 Includes: PROPHYLAXIS forvenous thrombosis, systemic embolization; TREATMENT for venous thrombosis and/or pulmonary embolus.HIGH RISK: Target INR is 2.5-3.5 for patients with mechanical heart valves.[id number] 01:45:00 Test Item Value Reference Range Interpretation Comments PARTIAL THROMBOPLASTIN TIME 32.4 seconds 22.5-36.0 (BEAKER) (test code = 760) CBC W/PLT COUNT & AUTO [id number] 01:38:00 Test Item Value Reference Range Interpretation [...] % 0-1 PERCENT (BEAKER) (test code = 3551)
[2020-05-25 09:48] LABS: Urine Blood NEGATIVE (NEG); Urine Glucose NEGATIVE (NEG); Urine Protein 1+ (NEG)
[2020-05-25 10:04] LABS: Absolute Lymphocytes (CBC) 0.7 K/uL (0.7-4.9); Basophils % 0.7 % (0-1.3); Hematocrit 34.1 % (36.0-45.0); Lymphocytes % 16.4 % (15.3-44.8); RBC Red Blood Cell Count 3.59 M/uL (3.86-4.86)
--- NOTE | 2020-05-25 10:04 | RAD REPORT ---
EXAM DESCRIPTION: RAD - Chest Single View - 05/25/2020 9:54 am CLINICAL HISTORY: COUGH, episodic a mild ptosis COMPARISON: May 22 TECHNIQUE: AP portable chest image was obtained 05/25/2020 9:54 am . FINDINGS: Lung volumes are low. No peripheral mass or consolidation. Chronic interstitial pattern is accentuated by the low lung volumes. Heart size is normal for exam limitations. No abnormal vascular engorgement. No measurable pleural effusion and no pneumothorax. No acute bony abnormality seen. Anderson ateral shoulder joint degenerative changes are present. Patient probably has chronic bilateral rotato r cuff tear. IMPRESSION: Chronic interstitial lung pattern accentuated by low lung volumes. This could mask minim al edema or infiltrate. No focal mass or consolidation.
[2020-05-25 10:15] LABS: Protime INR 1.72
[2020-05-25] MEDS ORDERED: FAMOTIDINE 20 MG/2 ML VIAL IV ONE (10:24)
[2020-05-25] MEDS ORDERED: NA CHLORIDE 0.9% 1,000 ML ONE (10:24)
[2020-05-25 10:25] LABS: Albumin 2.6 g/dL (3.4-5.0); Bilirubin Direct 0.2 mg/dL (0-0.2); Bilirubin Total 0.7 mg/dL (0.2-1.0); Magnesium 1.9 mg/dL (1.8-2.4); Potassium 3.5 mmol/L (3.5-5.1); Protein, Total 6.1 g/dL (6.4-8.2); Troponin (Emerg Dept Use Only) 0.03 ng/mL (0.0-0.045)
[2020-05-25 10:40] LABS: Urine Bacteria LOADED /HPF (<20); Urine Culture Reflex Order REFLEXED; Urine RBC NONE SEEN /HPF (NONE SEEN)
[2020-05-25] MEDS ORDERED: NA CHLORIDE 0.9% 100 ML IV ONE (11:04)
[2020-05-25] MEDS ORDERED: CEFTRIAXONE/SWI 1gm 1 GM/10 ML SYR ONE (11:04)
--- NOTE | 2020-05-25 11:45 | RAD REPORT ---
EXAM DESCRIPTION: CT - Angio Aorta For Dissection - 05/25/2020 11:15 am CLINICAL HISTORY: Abdominal distention;Dissection;PE COMPARISON: Portable chest same date, CT abdomen and pelvis June 2019 TECHNIQUE: Dynamically enhanced 3 mm thick images of the chest, abdomen, and upper pelvis were obtai imna during administration of approximately 150mL Isovue 370 IV contrast. Sagittal and coronal reconst ruction images were generated using MIP and reviewed. Exam utilizes a protocol to evaluate entire cou rse of the aorta. All CT scans are performed using dose optimization technique as appropriate and may include automated exposure control or mA/KV adjustment according to patient size. FINDINGS: Aorta is normal in diameter with no dissection or other acute aortic findings. Reconstruct ion images show no significant findings. Aortic arch is 3 vessel configuration. 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 Subcl mary arteries as imaged are unremarkable. Pulmonary arteries are normal as well. Heart size upper normal. No pericardial effusion. Bilateral lower lobe atelectasis changes are present. Small bilateral pleural effusions are present. No consolidation or mass lesions seen. No pleural thickening, pleural based mass or pneumothorax. No abnormal mediastinal or hilar mass or lymphadenopathy seen. No chest wall mass or abnormal axillar y lymphadenopathy. Celiac, SMA and renal arteries show no suspicious findings. A few small low-density masses in the cameron er believed be incidental cysts. No worrisome liver parenchymal finding. Spleen and pancreas show no suspicious findings. Layering sludge or punctate gallstones are seen in the gallbladder. No wall thic kening or edema. No active gallbladder process suspected. No biliary tree dilatation. No acute renal or adrenal finding identified. No urinary bladder abnormality. Uterus absent. Atrophic ovaries are id entified. Sigmoid diverticulosis present without diverticulitis. No acute GI process identifiable. Minimal stranding or retained fluid is seen in the subcutaneous fatty tissues over the lateral lower right abdomen. There does appear to be some stranding and edema in the subcutaneous fatty tissues ove r the lower gluteal musculature. Correlation can be made with any cellulitis or decubitus changes in the lower buttocks region. Prominent degenerative change seen near the thoracolumbar junction and in the lower lumbar spine. Con cave endplate seen at several levels. No finding to indicate an acute compression fracture or patholo gic bone process. IMPRESSION: No dissection, aneurysm or acute aortic finding. 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 Bilateral small pleural effusions are present with partial atelectasis of each lower lobe. No dense c onsolidation or mass lesions seen. No acute findings confirmed in the gallbladder. There is questionable stone or sludge layering on the dependent portion. An active gallbladder process is doubtful but followup sonography could be perfor med if the patient has right upper quadrant pain symptoms. Suspected stranding or edema changes to the skin and subcutaneous fat overlying the lower gluteal mus culature. Correlation can be made with any physical exam findings for possible cellulitis or decubitu s ulcer change.
--- NOTE | 2020-05-25 12:25 | EDPHYS ---
Physician Documentation [facility] Name: Emelia Payan Age: 79 yrs Sex: Female : 1940 Arrival Date: 05/25/2020 Time: 08:55 Bed 6 Private MD: LILIAN Physician Jose Elias Marquez HPI: 05/25 09:18 This 79 yrs old Female presents to ER via Wheelchair with complaints of Cough gilberto - blood. 09:18 The patient or guardian reports cough, that is intermittent. Onset: The gilberto symptoms/episode began/occurred 2 day(s) ago. Severity of symptoms: At their worst the symptoms were mild, in the emergency department the symptoms are unchanged. Associated signs and symptoms: The patient has no apparent associated signs or symptoms. The patient has not experienced similar symptoms in the past. Historical: - Allergies: Cipro; iw Xarelto; iw - Home Meds: : warfarin 2.5 mg Oral tab 1 tab once daily [Active]; amlodipine 5 mg tab 1 tab once iw daily [Active]; Creon 36,000-114,000- 180,000 unit Oral cpDR 1 cap 3 times per day [Active]; Dexilant 60 mg Oral CpDB 1 cap once daily [Active]; fenofibrate 48 mg Oral 1 tab once daily [Active]; glipizide 2.5 mg Oral tr24 one tab M, W, F [Active]; hydrocortisone 10 mg Oral tab 2 tabs twice a day [Active]; levothyroxine 112 mcg tab 1 tab once daily [Active]; liothyronine 5 mcg Oral tab 1 tab once daily [Active]; lorazepam 0.5 mg Oral tab 2 times per day for Anxiety [Active]; losartan 100 mg Oral tab 1 tab once daily [Active]; Omnitrope 5 mg/1.5 mL (3.3 mg/mL) subcutaneous crtg once daily [Active]; sotalol 160 mg Oral tab 1 tab 2 times per day [Active]; Vitamin D3 50,000 units Oral tab twice a day [Active]; - PMHx: adrenal insuficiency; Anxiety; Atrial Fib; CHF; CVA; Diabetes - IDDM; DVT; iw Hyperlipidemia; Hypertension; Hypothyroidism; Pancreatitis; - PSHx: 09:31 Appendectomy; pituitary; Carpal Tunnel Repair; Lumpectomy; iw - Immunization history:: Adult Immunizations up to date. - Family history:: not pertinent. - Social history:: Smoking status: Patient denies any tobacco usage or history of. ROS: 09:19 Constitutional: Negative for fever, chills, and weight loss, Eyes: Negative for injury, gilberto pain, redness, and discharge, ENT: Negative for injury, pain, and discharge, Neck: Negative for injury, pain, and swelling, Respiratory: Negative for shortness of breath, cough, wheezing, and pleuritic chest pain, Back: Negative for injury and pain, : Negative for injury, bleeding, discharge, and swelling, MS/Extremity: Negative for injury and deformity, Skin: Negative for injury, rash, and discoloration, Neuro: Negative for headache, weakness, numbness, tingling, and seizure, Psych: Negative for depression, anxiety, suicide ideation, homicidal ideation, and hallucinations, Allergy/Immunology: Negative for hives, rash, and allergies, Endocrine: Negative for neck swelling, polydipsia, polyuria, polyphagia, and marked weight changes. 09:19 Cardiovascular: Positive for chest pain. 09:19 Abdomen/GI: Positive for abdominal pain, abdominal distension. Exam: 09:19 Constitutional: This is a well developed, well nourished patient who is awake, alert, gilberto and in no acute distress. Head/Face: Normocephalic, atraumatic. Eyes: Pupils equal round and reactive to light, extra-ocular motions intact. Lids and lashes normal. Conjunctiva and sclera are non-icteric and not injected. Cornea within normal limits. Periorbital areas with no swelling, redness, or edema. ENT: Nares patent. No nasal discharge, no septal abnormalities noted. Tympanic membranes are normal and external auditory canals are clear. Oropharynx with no redness, swelling, or masses, exudates, or evidence of obstruction, uvula midline. Mucous membranes moist. Neck: Trachea midline, no thyromegaly or masses palpated, and no cervical lymphadenopathy. Supple, full range of motion without nuchal rigidity, or vertebral point tenderness. No Meningismus. Chest/axilla: Normal chest wall appearance and motion. Nontender with no deformity. No lesions are appreciated. Cardiovascular: Regular rate and rhythm with a normal S1 and S2. No gallops, murmurs, or rubs. Normal PMI, no JVD. No pulse deficits. Respiratory: Lungs have equal breath sounds bilaterally, clear to auscultation and percussion. No rales, rhonchi or wheezes noted. No increased work of breathing, no retractions or nasal flaring. Abdomen/GI: Soft, non-tender, with normal bowel sounds. No distension or tympany. No guarding or rebound. No evidence of tenderness throughout. Back: No spinal tenderness. No costovertebral tenderness. Full range of motion. Skin: Warm, dry with normal turgor. Normal color with no rashes, no lesions, and no evidence of cellulitis. MS/ Extremity: Pulses equal, no cyanosis. Neurovascular intact. Full, normal range of motion. Neuro: Awake and alert, GCS 15, oriented to person, place, time, and situation. Cranial nerves II-XII grossly intact. Motor strength 5/5 in all extremities. Sensory grossly intact. Cerebellar exam normal. Normal gait. Psych: Awake, alert, with orientation to person, place and time. Behavior, mood, and affect are within normal limits. 09:19 Cardiovascular: Rate: normal, Rhythm: regular, Pulses: Pulses are 4+ in bilateral radial, brachial, femoral, popliteal, posterior tibial and and dorsalis pedis arteries.. Heart sounds: normal, normal S1and S2, no S3 or S4, no murmur, no rub, no gallop, JVD: is not appreciated. 09:19 Respiratory: Exam negative for 10:00 ECG was reviewed by the Attending Physician. gilberto Vital Signs: 09:07 BP 179 / 92; Pulse 71; Resp 16; Temp 98.2; Pulse Ox 99% on R/A; iw 10:17 BP 160 / 56; Pulse 60; Resp 12; Pulse Ox 98% ; bp 11:49 BP 166 / 94; Pulse 74; Resp 16; Temp 97.8(O); Pulse Ox 97% on R/A; mh5 13:00 BP 161 / 91; Pulse 82; Resp 17; Temp 98.0(O); Pulse Ox 98% on R/A; mh5 14:20 BP 154 / 72; Pulse 72; Resp 16; Temp 97.9; Pulse Ox 97% on R/A; mh5 15:30 BP 164 / 78; Pulse 63; Resp 18; Pulse Ox 99% on R/A; em MDM: 08:59 Patient medically screened. [facility] 09:21 Differential diagnosis: abnormal EKG, anxiety, cholecystitis, Cholelithiasis gastritis, gilberto pancreatitis, pulmonary embolus, stable angina, unstable angina. HEART Score: History: Slightly Suspicious (0), ECG: Non specific repolarization disturbance / LBTB / PM (1), Age: > or = 65 years (2), Risk Factors: > or = 3 Risk factors for atherosclerotic disease (2), [Hypercholesterolemia] [Hypertension] [DM] [+ Family HX] [Obesity] Troponin: < or = 1 x Normal Limit (0). The patient was not given aspirin in the Emergency Department. Not indicated due to patient's past medical history. Differential Diagnosis: Bronchitis Upper Respiratory Infection Pneumonia. The patient's deep vein thrombosis risk score was calculated as follows: Total Score: 0. This patient was found to be at low risk for a deep vein thrombosis by using the Well's assessment criteria. The patient's pulmonary embolism risk score was calculated as follows: hemoptysis (1.0 Pts). PEDRO Risk Score: 1 - patient's age is greater or equal to 65 years, 1 - Three or more CAD risk factors, 1- Known CAD, TOTAL SCORE = 3. Data reviewed: vital signs, nurses notes, old medical records, lab test result(s), EKG, radiologic studies, CT scan, plain films. Data interpreted: youth nutritional monitor: rate is 80 beats/min, rhythm is regular, Pulse oximetry: on room air is 99 %. Test interpretation: by ED physician or midlevel provider: ECG, plain radiologic studies. 05/25 09:16 Order name: Basic Metabolic Panel; Complete Time: 10: [facility] 05/25 09:16 Order name: CBC with Diff; Complete Time: : [facility] 05/25 09:16 Order name: LFT's; Complete Time: : [facility] 05/25 09:16 Order name: Magnesium; Complete Time: : [facility] 05/25 09:16 Order name: NT PRO-BNP; Complete Time: 10: [facility] 05/25 09:16 Order name: PT-INR; Complete Time: 10: [facility] 05/25 09:16 Order name: Troponin (emerg Dept Use Only); Complete Time: 10: [facility] 05/25 09:16 Order name: XRAY Chest (1 view); Complete Time: 10:29 [facility] 05/25 09:16 Order name: Lipase; Complete Time: 10:29 [facility] 05/25 09:34 Order name: Urine Microscopic Only; Complete Time: 11:11 bp 05/25 09:36 Order name: Urine Dipstick--Ancillary (enter results); Complete Time: 10:29 05/25 10:30 Order name: Urine Culture [facility] 05/25 09:16 Order name: EKG; Complete Time: 09:17 [facility] 05/25 09:16 Order name: Cardiac monitoring; Complete Time: 09:35 [facility] 05/25 09:16 Order name: EKG - Nurse/Tech; Complete Time: 09:35 [facility] 05/25 09:16 Order name: IV Saline Lock; Complete Time: 09:50 [facility] 05/25 09:16 Order name: Labs collected and sent; Complete Time: 09:50 [facility] 05/25 09:16 Order name: O2 Per Protocol; Complete Time: 09:18 [facility] 05/25 09:16 Order name: O2 Sat Monitoring; Complete Time: 09:18 [facility] 05/25 09:16 Order name: Urine Dipstick-Ancillary (obtain specimen); Complete Time: 09:34 [facility] 05/25 09:16 Order name: CT Aorta for Dissection; Complete Time: 11:55 [facility] 05/25 11:13 Order name: PO challenge: JUICE; Complete Time: 12:13 [facility] 05/25 11:58 Order name: US Abdomen Limited [facility] EC:00 Rate is 67 beats/min. Rhythm is regular. QRS [place] is Normal. VT interval is normal. QRS gilberto interval is normal. QT interval is normal. No Q waves. T waves are Normal. No ST changes noted. Clinical impression: NSR w/ Non-specific ST/T Changes and No evidence of ischemia. Interpreted by me. Reviewed by me. Administered Medications: 09:45 Drug: NS 0.9% 1000 ml Route: IV; Rate: 75 ml/hr; Site: right antecubital; bp 16:37 Follow up: IV Status: Infusion continued upon admission em 09:45 Drug: Pepcid 20 mg Route: IVP; Site: right forearm; bp 10:16 Follow up: Response: No adverse reaction bp 10:45 Drug: Rocephin 1 grams Route: IV; Rate: per protocol; Site: right antecubital; bp 11:00 Follow up: Response: No adverse reaction; IV Status: Completed infusion; IV Intake: 10mlem Disposition: 05/25/20 12:24 Hospitalization ordered by Raul Cox for Inpatient Admission. Preliminary diagnosis are Hemoptysis, Coagulation defect, unspecified - coumadin therapy, Unspecified combined systolic (congestive) and diastolic (congestive) heart failure, Urinary tract infection, site not specified, Abdominal tenderness. - Bed requested for Telemetry/MedSurg (Inpatient). - Status is Inpatient Admission. em - Condition is Fair. - Problem is new. - Symptoms are unchanged. Signatures: Dispatcher [employer] EDNJ Jose Elias Marquez MD MD cha Munoz, Edgar, RN Guerita Lemus RN RN iw Peltier, Brian, RN RN bp Botello, Elizabeth eb Corrections: (The following items were deleted from the chart) 09:41 09:27 Type and Screen ordered. [facility] 14:28 12:24 Hospitalization Ordered by Raul Cox DO for Inpatient Admission. Preliminary eb diagnosis is Hemoptysis; Coagulation defect, unspecified - coumadin therapy; Unspecified combined systolic (congestive) and diastolic (congestive) heart failure; Urinary tract infection, site not specified; Abdominal tenderness. Bed requested for Telemetry/MedSurg (Inpatient). Status is Inpatient Admission. Condition is Fair. Problem is new. Symptoms are unchanged. gilberto 15:54 14:28 05/25/2020 12:24 Hospitalization Ordered by Raul Cox DO for Inpatient em Admission. Preliminary diagnosis is Hemoptysis; Coagulation defect, unspecified - coumadin therapy; Unspecified combined systolic (congestive) and diastolic (congestive) heart failure; Urinary tract infection, site not specified; Abdominal tenderness. Bed requested for Telemetry/MedSurg (Inpatient). Status is Inpatient Admission. Condition is Fair. Problem is new. Symptoms are unchanged. eb 16:37 15:54 05/25/2020 12:24 Hospitalization Ordered by Raul oCx DO for Inpatient em Admission. Preliminary diagnosis is Hemoptysis; Coagulation defect, unspecified - coumadin therapy; Unspecified combined systolic (congestive) and diastolic (congestive) heart failure; Urinary tract infection, site not specified; Abdominal tenderness. Bed requested for Telemetry/MedSurg (Inpatient). Status is Inpatient Admission. Condition is Fair. Problem is new. Symptoms are unchanged. em
--- NOTE | 2020-05-25 12:25 | ER ---
Nurse's Notes [facility] Name: Emeila Payan Age: 79 yrs Sex: Female : 1940 Arrival Date: 05/25/2020 Time: 08:55 Bed 6 Private MD: Diagnosis: Hemoptysis;Coagulation defect, unspecified-coumadin therapy;Unspecified combined systolic (congestive) and diastolic (congestive) heart failure;Urinary tract infection, site not specified;Abdominal tenderness Presentation: 05/25 09:07 Chief complaint: Patient states: had an arteriogram of her heart on Tuesday with iw started coughing up specks of blood yesterday, also is having tenderness under her ribcage, pt takes warfarin 2.5 mg daily. Coronavirus screen: At this time, the client does not indicate any symptoms associated with coronavirus-19. Ebola Screen: Patient negative for fever greater than or equal to 101.5 degrees Fahrenheit, and additional compatible Ebola Virus Disease symptoms Patient denies exposure to infectious person. Patient denies travel to an Ebola-affected area in the 21 days before illness onset. No symptoms or risks identified at this time. Initial Sepsis Screen: Does the patient meet any 2 criteria? No. Patient's initial sepsis screen is negative. Does the patient have a suspected source of infection? No. Patient's initial sepsis screen is negative. Risk Assessment: Do you want to hurt yourself or someone else? Patient reports no desire to harm self or others. Onset of symptoms was May 24, 2020. 09:07 Method Of Arrival: Wheelchair iw 09:07 Acuity: EDIS 3 iw Triage Assessment: 09:10 General: Appears in no apparent distress. uncomfortable, obese, Behavior is bp cooperative, appropriate for age, anxious. Pain: Complains of pain in chest. EENT: No deficits noted. Neuro: No deficits noted. Cardiovascular: Rhythm is sinus rhythm. Respiratory: Breath sounds are coarse bilaterally. GI: No signs and/or symptoms were reported involving the gastrointestinal system. : No signs and/or symptoms were reported regarding the genitourinary system. Derm: No deficits noted. Musculoskeletal: No deficits noted. Historical: - Allergies: : Cipro; iw : Xarelto; iw - Home Meds: : warfarin 2.5 mg Oral tab 1 tab once daily [Active]; amlodipine 5 mg tab 1 tab once iw daily [Active]; Creon 36,000-114,000- 180,000 unit Oral cpDR 1 cap 3 times per day [Active]; Dexilant 60 mg Oral CpDB 1 cap once daily [Active]; fenofibrate 48 mg Oral 1 tab once daily [Active]; glipizide 2.5 mg Oral tr24 one tab M, W, F [Active]; hydrocortisone 10 mg Oral tab 2 tabs twice a day [Active]; levothyroxine 112 mcg tab 1 tab once daily [Active]; liothyronine 5 mcg Oral tab 1 tab once daily [Active]; lorazepam 0.5 mg Oral tab 2 times per day for Anxiety [Active]; losartan 100 mg Oral tab 1 tab once daily [Active]; Omnitrope 5 mg/1.5 mL (3.3 mg/mL) subcutaneous crtg once daily [Active]; sotalol 160 mg Oral tab 1 tab 2 times per day [Active]; Vitamin D3 50,000 units Oral tab twice a day [Active]; - PMHx: 09:31 adrenal insuficiency; Anxiety; Atrial Fib; CHF; CVA; Diabetes - IDDM; DVT; iw Hyperlipidemia; Hypertension; Hypothyroidism; Pancreatitis; - PSHx: 09:31 Appendectomy; pituitary; Carpal Tunnel Repair; Lumpectomy; iw - Immunization history:: Adult Immunizations up to date. - Family history:: not pertinent. - Social history:: Smoking status: Patient denies any tobacco usage or history of. Screenin:10 Abuse screen: Denies threats or abuse. Denies injuries from another. Nutritional bp screening: No deficits noted. Tuberculosis screening: No symptoms or risk factors identified. Fall Risk None identified. Assessment: 09:10 General: SEE TRIAGE NOTE. bp 10:19 Reassessment: CT PENDING, NO S/S ACUTE DISTRESS. bp 11:40 Reassessment: Patient appears in no apparent distress at this time. wheeled to restroom em via wheelchair. 12:30 Reassessment: Patient appears in no apparent distress at this time. Patient and/or em family updated on plan of care and expected duration. Pain level reassessed. Patient is alert, oriented x 3, equal unlabored respirations, skin warm/dry/pink. 13:30 Reassessment: Patient appears in no apparent distress at this time. Patient and/or em family updated on plan of care and expected duration. Pain level reassessed. Patient is alert, oriented x 3, equal unlabored respirations, skin warm/dry/pink. 14:30 Reassessment: Patient appears in no apparent distress at this time. Patient and/or em family updated on plan of care and expected duration. Pain level reassessed. Patient is alert, oriented x 3, equal unlabored respirations, skin warm/dry/pink. 15:30 Reassessment: Patient appears in no apparent distress at this time. Patient and/or em family updated on plan of care and expected duration. Pain level reassessed. Patient is alert, oriented x 3, equal unlabored respirations, skin warm/dry/pink. Vital Signs: 09:07 BP 179 / 92; Pulse 71; Resp 16; Temp 98.2; Pulse Ox 99% on R/A; iw 10:17 BP 160 / 56; Pulse 60; Resp 12; Pulse Ox 98% ; bp 11:49 BP 166 / 94; Pulse 74; Resp 16; Temp 97.8(O); Pulse Ox 97% on R/A; mh5 13:00 BP 161 / 91; Pulse 82; Resp 17; Temp 98.0(O); Pulse Ox 98% on R/A; mh5 14:20 BP 154 / 72; Pulse 72; Resp 16; Temp 97.9; Pulse Ox 97% on R/A; mh5 15:30 BP 164 / 78; Pulse 63; Resp 18; Pulse Ox 99% on R/A; em ED Course: 08:55 Patient arrived in ED. as 08:59 Jose Elias Marquez MD is Attending Physician. gilberto 09:01 Bartolo Hays, RN is Primary Nurse. bp 09:10 Patient has correct armband on for positive identification. Placed in gown. Bed in low bp position. Call light in reach. Side rails up X2. phototypesetting equipment monitor on. Pulse ox on. NIBP on. 09:17 Triage completed. iw 09:30 Arm band placed on. iw 09:50 Warm blanket given. 5 09:50 EKG done, by ED staff, reviewed by Jose Elias Marquez MD. 5 09:50 Inserted saline lock: 20 gauge in right forearm, using aseptic technique. Blood bp collected. 09:55 XRAY Chest (1 view) In Process Unspecified. EDMS 11:15 CT Aorta for Dissection In Process Unspecified. EDMS 12:18 Raul Cox DO is Hospitalizing Provider. gilberto 13:09 US Abdomen Limited In Process Unspecified. EDMS 15:58 No provider procedures requiring assistance completed. Patient admitted, IV remains in em place. Administered Medications: 09:45 Drug: NS 0.9% 1000 ml Route: IV; Rate: 75 ml/hr; Site: right antecubital; bp 16:37 Follow up: IV Status: Infusion continued upon admission em 09:45 Drug: Pepcid 20 mg Route: IVP; Site: right forearm; bp 10:16 Follow up: Response: No adverse reaction bp 10:45 Drug: Rocephin 1 grams Route: IV; Rate: per protocol; Site: right antecubital; bp 11:00 Follow up: Response: No adverse reaction; IV Status: Completed infusion; IV Intake: 10mlem Intake: 11:00 IV: 10ml; Total: 10ml. em Outcome: 12:24 Decision to Hospitalize by Provider. gilberto 15:58 Admitted to Med/surg accompanied by tech, via wheelchair, room 210, on monitor, with em chart, Report called to ODILON Fraga 15:58 Condition: good 15:58 Instructed on the need for admit, Demonstrated understanding of instructions. 16:37 Patient left the ED. em Signatures: Dispatcher [employer] Jose Elias Copeland MD MD cha Munoz, Edgar, RN Nohelia Griffith Irene, ODILON DONALD Dottie Rushing [facility] Bartolo Hays, ODILON RN bp
--- NOTE | 2020-05-25 13:31 | RAD REPORT ---
EXAM DESCRIPTION: US - Abdomen Exam Limited - 05/25/2020 1:08 pm CLINICAL HISTORY: ABD PAIN COMPARISON: Angio Aorta For Dissection dated 05/25/2020 FINDINGS: No gallstones are identified. Sludge is layering along the dependent portion the gallbladd er wall. This is the correlate to the CT finding. There is no wall thickening or pericholecystic flui d. No common duct stone or biliary tree dilatation identified. IMPRESSION: Gallbladder sludge is present. This is the correlate to the CT finding. No gallstones se en. No acute gallbladder or biliary tree finding seen.
--- NOTE | 2020-05-25 15:38 | P.HP ---
Certification for Inpatient Patient admitted to: Observation With expected LOS: <2 Midnights Patient will require the following post-hospital care: None Practitioner: I am a practitioner with admitting privileges, knowledge of patient current condition, hospital course, and medical plan of care. Services: Services provided to patient in accordance with Admission requirements found in Title 42 Section 412.3 of the Code of Federal Regulations Patient History Date of Service: 05/25/20 Primary Care Provider: Dr. Iraheta; Cardiology-Dr. 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 Patient presented to the emergency room with multiple complaints. Patient was recently admitted on 05/22/2020 and discharge 05/23/2020 for AFib with RVR. Patient was seen by Cardiology. Patient converted on her to normal sinus rhythm with restart of her medication at that time. Cardiology also performed heart catheterization which was unremarkable for CAD. Echocardiogram shows ejection fraction 40%. Patient was discharged without any significant problems. Today she reports spitting up of blood. She thought maybe this was related to allergies. She has been having some nasal congestion. She denies any significant chest pain, shortness of breath. She also reports right upper quadrant abdominal pain. She reports this has been chronic. No significant nausea or vomiting noted. Pain comes and goes. She does report some occasional diarrhea. This appears to have been evaluated within the past year by multiple GIs. Previous information shows MRA of the abdomen done 09/03/2019 unremarkable and HIDA scan was unremarkable by GI specialist. Then in 2018 she had an MRCP that was unremarkable with another GI specialist. Patient admits eating a lot of fried food. She denies any significant fever. Some cold chills noted. She does report some mild burning sensation to her urine. Some increased urination noted. The patient was seen in the emergency room. In the ER patient evaluated. Vital signs stable. Patient in normal sinus rhythm. White count 4.3, hemoglobin 11.4. Platelet count 134. Sodium 147, potassium 3.5. Being of 14, creatinine 0.7 with a GFR 74. Glucose 70. BNP 1400. INR 1.7. Troponin unremarkable. LFTs unremarkable. Urinalysis abnormal for bacteria. CT dissection unremarkable. Abdominal ultrasound shows some gallbladder sludge no cholecystitis noted. No abnormalities to the biliary ducts. Patient given IV antibiotic therapy in the emergency room. Patient admitted for further evaluation observation. When I saw the patient ER, she appeared comfortable. No evidence of bleeding from her nose. at bedside. Allergies ciprofloxacin [From Cipro] Allergy (Verified 02/11/17 06:42) Unknown rivaroxaban [From Xarelto] Allergy (Verified 02/11/17 06:42) Unknown piperacillin [From Zosyn] Adverse Reaction (Verified 04/28/19 22:34) Hives/Rash tazobactam [From Zosyn] Adverse Reaction (Verified 04/28/19 22:34) Hives/Rash Home medications list reviewed: Yes Home Medications: Amlodipine [Norvasc*] 5 mg PO DAILY 10/06/18 Cholecalciferol (Vitamin D3) [Vitamin D3] 50,000 unit PO SEECOM 10/06/18 Dexlansoprazole [Dexilant] 60 mg PO DAILY 10/06/18 Losartan Potassium [Cozaar] 100 mg PO DAILY 10/06/18 Somatropin [Omnitrope] 0.3 mg SQ DAILY 10/06/18 Sotalol HCl [Betapace] 1 tab PO BID 10/06/18 Warfarin Sodium [Coumadin*] 2.5 mg PO DAILY 10/06/18 Potassium Oral Tab [Klor-Con 10 mEq Tab*] 1 tab PO DAILY 04/25/19 clonazePAM [Klonopin*] 1 tab PO BID 04/25/19 Hydrocortisone [Cortef] 30 mg PO BID 04/27/19 Levothyroxine [Synthroid*] 125 mcg PO DAILYAC 04/27/19 Liothyronine Sodium [Cytomel] 1 tab PO 0600 04/27/19 Methscopolamine 5 mg PO DAILY 04/27/19 Fenofibrate [Tricor*] 1 tab PO DAILY 05/22/20 Glipizide [Glipizide Xl] 2 tab PO DAILY 05/22/20 Liothyronine Sodium [Cytomel] 5 mcg PO DIRECTED 05/22/20 Lactobacillus Acidophilus [Acidophilus Lactobacilli] 1 each PO BID #60 capsule 05/23/20 - Past Medical/Surgical History Diabetic: Yes -: Diabetes mellitus type 2 non-insulin dependent -: History CVA 2012 -: HTN -: Anxiety -: History of pituitary gland removal -: GERD with history of GI bleed -: Hypothyroidism -: Chronic anti coagulation -: History atrial fibrillation -: Chronic steroids -: Adrenal insufficiency -: Hyperlipidemia -: hysterectomy -: bradley carpal tunnel sx -: L lumpectomy -: brain tumor removed- benign -: pituitary gland removal -: appendectomy Psychosocial/ Personal History: The patient is . She has 5 children. She does not work. - Family History Mother -: Heart disease, Hypertension Notes: of heart attack Father -: Heart disease Notes: of heart attack - Social History Smoking Status: Never smoker Alcohol use: No CD- Drugs: No Caffeine use: Yes Place of Residence: Home Review of Systems General: Chills, As per HPI Eyes: As per HPI ENT: Unremarkable Respiratory: Unremarkable Cardiovascular: Unremarkable Gastrointestinal: Abdominal Pain, As per HPI Genitourinary: Dysuria, Frequency, As per HPI Musculoskeletal: Unremarkable Integumentary: Unremarkable Neurological: Unremarkable Lymphatics: Unremarkable Physical Examination - Physical Exam General: Alert, In no apparent distress, Oriented x3, Cooperative HEENT: Atraumatic, Normocephalic, Mucous membr. moist/pink Neck: Supple Respiratory: Clear to auscultation bilaterally, Normal air movement Cardiovascular: Normal pulses, Regular rate/rhythm Gastrointestinal: Normal bowel sounds, Soft and benign, Non-distended, No masses, No rebound, No guarding, Tenderness (Mild pain to the right upper quadrant) Musculoskeletal: No erythema, No tenderness, No warmth Integumentary: No tenderness/swelling, No erythema, No warmth, No cyanosis Neurological: Normal speech, Normal strength at 5/5 x4 extr, Normal tone, Normal affect - Studies Laboratory Data (last 24 hrs) 05/25/20 09:40: PT 20.1 H, INR 1.72 05/25/20 09:40: WBC 4.3 D, Hgb 11.4 L, Hct 34.1 L, Plt Count 134 L 05/25/20 09:40: Sodium 147 H, Potassium 3.5, BUN 14, Creatinine 0.75, Glucose 70 L, Magnesium 1.9, Total Bilirubin 0.7, AST 12 L, ALT 15, Alkaline Phosphatase 47, Lipase 159 Assessment and Plan - Plan Impression: Right upper quadrant abdominal pain, acute on chronic, with noted gallbladder sludge without cholecystitis UTI with history of recurrent UTI Spitting up of blood likely allergic rhinitis related Hypernatremia, chronic Diabetes mellitus type 2 non-insulin dependent Hypertension Atrial fibrillation on chronic anti coagulation therapy with recent heart catheterization 2 days ago which was unremarkable GERD Adrenal insufficiency with hypothyroidism and history of hypopituitarism on chronic steroids Depression with anxiety Hyperlipidemia Plan: Right upper quadrant abdominal pain, acute on chronic, with noted gallbladder sludge without cholecystitis: Patient will be admitted for further evaluation and treatment. CT scan shows no biliary dilation. Sludge noted. Abdominal ultrasound shows sludge and no cholecystitis. Patient with poor eating habits. Will start clear liquid diet and advance as tolerated. Recommend no further fried foods or high in fat foods. Surgery consulted for further recommendation. Previous workup done by multiple GI specialists. This includes 09/03/2019 MRA abdomen unremarkable, HIDA scan unremarkable, and 2018 MRCP unremarkable. If able tolerate diet tomorrow consider discharge and follow up with GI as directed. Patient with UTI. Will treat with antibiotic therapy. Will provide IV fluids. Will also provide medication for GERD. Anticipate improvement over the next 24 hr. Likely discharge tomorrow if able to tolerate her diet. I will turn the service over to the hospitalist team tomorrow. I will go over the plan of care with him. UTI with history of recurrent UTI: Patient with urinary symptoms. IV Rocephin initiated. Patient also on IV fluids. Anticipate improvement next 24 hr with possible discharge and follow up as an outpatient. Hypernatremia, chronic: Will start D5 W. Spitting up of blood likely allergic rhinitis related: H&H within normal range. Patient on Coumadin. INR 1.7. Will need to be restarted on her Coumadin. No evidence of bleeding at this time. Diabetes mellitus type 2 non-insulin dependent: Will provide sliding scale. Hypertension: Restart home medication. Atrial fibrillation on chronic anti coagulation therapy with recent heart catheterization 2 days ago which was unremarkable.: Restart Coumadin. Also restart sotalol 160 mg 1 pill twice daily. Patient with recent heart catheterization was wished unremarkable. GERD: Will start medication. Recommend follow up with GI as an outpatient. Adrenal insufficiency with hypothyroidism and history of hypopituitarism on chronic steroids: Restart home medication including hydrocortisone and Somatroponin. Depression with anxiety: Will provide medication for anxiety. Hyperlipidemia: Restart home medication. Discharge Plan: Home Plan to discharge in: 24 Hours - Advance Directives Does patient have a Living Will: Yes Does patient have a Durable POA for Healthcare: Yes - Code Status/Comfort Care Code Status Assessed: Yes (Patient is DNR) Time Spent Managing Pts Care (In Minutes): 55
[2020-05-25] MEDS ORDERED: SODIUM CHLORIDE 0.9% 10ML INJ IV PRN (16:33)
[2020-05-25] MEDS ORDERED: clonazePAM 0.5 MG TAB PO PRN (16:33)
[2020-05-25] MEDS ORDERED: ONDANSETRON 4 MG/2 ML VIAL IV PRN (16:33)
[2020-05-25] MEDS ORDERED: ACETAMINOPHEN 500 MG TAB PO PRN (16:33)
[2020-05-25] MEDS ORDERED: WARFARIN SODIUM 2.5 MG TAB PO SCH (17:00)
[2020-05-25] MEDS: D5W 1,000 ML IV SCH (17:32)
[2020-05-25] MEDS: SOTALOL HCL 80 MG TAB PO SCH (17:33)
[2020-05-25 19:31] VITALS: BMI 30.5
[2020-05-25] MEDS: LACTOBACILLUS/ACIDOPHILUS TAB PO SCH (20:39)
[2020-05-25] MEDS: HYDROCORTISONE 10 MG TAB PO SCH (20:39)
[2020-05-25] MEDS: PANTOPRAZOLE 40 MG INJ IVP SCH (20:39)
[2020-05-25] MEDS ORDERED: POTASSIUM CL SA 10 MEQ TAB PO ONE (21:00)
[2020-05-25] MEDS ORDERED: FENOFIBRATE 48 MG TAB PO SCH (21:00)
[2020-05-26 00:06] VITALS: O2SAT 97
[2020-05-26] MEDS: D5W 1,000 ML IV SCH (05:30)
[2020-05-26] MEDS: SOTALOL HCL 80 MG TAB PO SCH (05:32)
[2020-05-26] MEDS ORDERED: LIOTHYRONINE SOD 5 MCG TAB PO SCH (06:00)
[2020-05-26 06:19] LABS: Absolute Lymphocytes (CBC) 0.9 K/uL (0.7-4.9); Basophils % 0.6 % (0-1.3); Hematocrit 33.4 % (36.0-45.0); Lymphocytes % 23.9 % (15.3-44.8); MPV 10.1 fL (7.6-11.3); RBC Red Blood Cell Count 3.53 M/uL (3.86-4.86)
[2020-05-26 06:21] LABS: Protime INR 2.66
[2020-05-26] MEDS ORDERED: LEVOTHYROXINE SOD 0.125 MG TAB PO SCH (06:30)
[2020-05-26 06:34] LABS: Potassium 3.7 mmol/L (3.5-5.1)
[2020-05-26] MEDS: PANTOPRAZOLE 40 MG INJ IVP SCH (08:54)
[2020-05-26] MEDS: LACTOBACILLUS/ACIDOPHILUS TAB PO SCH (08:55)
[2020-05-26] MEDS: HYDROCORTISONE 10 MG TAB PO SCH (08:55)
[2020-05-26] MEDS ORDERED: CEFTRIAXONE 1 GM/NS 50 ML 1 GM/50 ML BAG IV SCH (09:00)
[2020-05-26] MEDS ORDERED: CEFTRIAXONE/SWI 1gm 1 GM/10 ML SYR IV SCH (09:00)
[2020-05-26] MEDS ORDERED: POTASSIUM CL SA 10 MEQ TAB PO ONE (09:00)
[2020-05-26] MEDS ORDERED: LOSARTAN POTASSIUM 50 MG TABLET PO SCH (09:00)
[2020-05-26] MEDS ORDERED: AMLODIPINE 5 MG TAB PO SCH (09:00)
[2020-05-26 12:26] VITALS: BP 172/74; TEMP 96.9
--- NOTE | 2020-05-26 13:33 | CON ---
Date of Consultation: 05/26/2020 Reason For Service: Right upper quadrant abdominal pain, epigastric pain. History Of Present Illness: This is a case of an 79-year-old patient with multiple medical problems, recently seen in the hospital with AFib, on anticoagulation and Coumadin, came with epigastric pain after having a greasy foot. She also described pain in the rest of abdomen and is mostly in the epig astric area. She also stated that in her sputum she saw some blood-tinged fluid. She is not sure if it can from the sinuses and she blew her nose at the same time. She denies any trauma, any dysuria, hematemesis, hematochezia, or melena. Denies any recent traveling out of the country. [facility]ies [facility] sick [facility]. Allergies: INCLUDE CIPRO, ZOSYN, TAZOBACTAM. Social History: She does not smoke. She does drink alcohol. She admits she ate some fried food. Past Medical History: Includes CVAs, diabetes non-insulin dependent, anxiety, hypertension, GERD wit h history of GI bleed, hypothyroidism, atrial fibrillation, on anticoagulation, renal insu fficiency, hyperlipidemia. Past Surgical History: Includes appendectomy, hysterectomy, left breast lumpectomy, pituitary gland removal due to a tumor. Family History: Noncontributory. Review of Systems: Ten points otherwise unremarkable. Physical Examination: General: The patient is awake, alert, no distress. HEENT: Pupils anicteric. Tongue midline. Neck: Supple. Chest: Clear bilateral breath sounds. Abdomen: Soft and depressible. No guarding, rebound. No Ricks signs. Extremities: Good capillary refill. Laboratory Data: Blood work shows WBC count 3.6 with hemoglobin 11.5, potassium 3.7. CAT scan of ab domen and pelvis shows mild stranding in the fatty tissue in the lower right abdomen. The reason for that is unknown. Gallbladder may have some sludge, but no inflammation seen. No active gallbladder process as per Dr. Viramontes. Abdominal ultrasound on followup once again shows gallbladder sludge, b ut no evidence of inflammation or acute process at this time at least on imaging. Assessment: This is an 79-year-old patient, history of anticoagulation, has some sputum w ith some blood, also epigastric pain. The patient admitted to the hospital. They consulted me for t he gallbladder, even though the gallbladder has some sludge shows no inflammation at this moment and no Ricks signs. We always going to have a case to a cholecystectomy, although in this situation, I discussed the case with the primary doctor. She is not the best candidate for surgical intervention. In that case, I discussed with the patient for the last hour the importance of diet. If she does n ot keep a low-fat diet, then she will be increasing the chance of having surgery or emergent surgery and that obviously may affect the way she recover from her medical conditions, especially when she is anticoagulated. Still I am here to help if she gets worse in the meantime, we are going to start cl ear liquid diet, give her some antibiotics and see how the gallbladder responds. The primary doctor should consult a mechanist to find any other reasons for her blood evidence on the upper GI tract since she is in anticoagulation and she has history of GI bleed. PINO/AZIZA Voice ID: [id number] Report ID: [id number]
--- NOTE | 2020-06-12 13:37 | P.DS ---
Discharge Date: 05/26/20 Primary Care Provider: Dr. Iraheta; Cardiology-Dr. Iraheta Disposition: ROUTINE DISCHARGE Discharge Condition: GOOD Reason for Admission: Multiple complaints including spitting up blood, RUQ pain Consultations: General surgeon Brief History of Present Illness: Patient 79-year-old female who came to the hospital with abdominal pain. She was having some nausea and her workup revealed sludge in the gallbladder. General surgeon was consulted for surgical evaluation. Patient has a longstanding history of cardiac disease. 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 Hospital Course: Patient was seen by General surgery and recommendation was for medical management at this time. If her pain worsens or she starts running fever that she can return to the emergency room. She will need to follow up as an outpatient. She has multiple cardiac issues so she needs to be cleared medically of for her cardiac disease. At this time she is tolerating her liquid diet. She needs to stay on this for the next couple of days and then slowly advance to a low-fat soft diet. She will follow with General surgery as an outpatient. Return to the emergency room if her symptoms worsen. At this time, patient is stable for discharge home. Vital Signs/Physical Exam: Temp Pulse Resp BP Pulse Ox 96.9 F 74 18 172/74 H 96 05/26/20 12:00 05/26/20 12:00 05/26/20 12:00 05/26/20 12:00 05/26/20 12:00 General: Alert, In no apparent distress, Oriented x3 Laboratory Data at Discharge: WBC 3.6 K/uL (4.3-10.9) L D 05/26/20 05:55 Hgb 11.5 g/dL (12.0-15.0) L 05/26/20 05:55 Hct 33.4 % (36.0-45.0) L 05/26/20 05:55 Plt Count 140 K/uL (152-406) L 05/26/20 05:55 PT 30.8 SECONDS (9.5-12.5) H 05/26/20 05:55 INR 2.66 05/26/20 05:55 Sodium 143 mmol/L (136-145) 05/26/20 05:55 Potassium 3.7 mmol/L (3.5-5.1) 05/26/20 05:55 BUN 9 mg/dL (7-18) 05/26/20 05:55 Creatinine 0.77 mg/dL (0.55-1.3) 05/26/20 05:55 Glucose 107 mg/dL (74-106) H 05/26/20 05:55 Magnesium 2.0 mg/dL (1.8-2.4) 05/26/20 05:55 Total Bilirubin 0.7 mg/dL (0.2-1.0) 05/25/20 09:40 AST 12 U/L (15-37) L 05/25/20 09:40 ALT 15 U/L (12-78) 05/25/20 09:40 Alkaline Phosphatase 47 U/L (45-117) 05/25/20 09:40 Lipase 159 U/L (73-393) 05/25/20 09:40 Home Medications: Amlodipine [Norvasc*] 1 tab PO DAILY 05/25/20 Cholecalciferol (Vitamin D3) [Dialyvite Vitamin D3 Max] 1 tab PO SEECOM 05/25/20 Dexlansoprazole [Dexilant] 60 mg PO [id number] 05/25/20 Fenofibrate [Tricor*] 1 tab PO DAILY 05/25/20 Glipizide [Glipizide Xl] 1 tab PO M,W,F 05/25/20 Hydrocortisone [Cortef*] 2 tab PO BID 05/25/20 Levothyroxine [Synthroid*] 1 tab PO [id number] 05/25/20 Liothyronine Sodium [Cytomel] 1 tab PO M,W,F 05/25/20 Liothyronine Sodium [Cytomel] 2 tab PO T,TH,S 05/25/20 Losartan Potassium [Cozaar] 1 tab PO DAILY 05/25/20 Somatropin [Omnitrope] 3.3 mg SQ DAILY 05/25/20 Sotalol HCl [Sotalol] 1 tab PO BID 05/25/20 Warfarin Sodium [Coumadin*] 1 tab PO DAILY 05/25/20 clonazePAM [Klonopin*] 1 tab PO BID 05/25/20 Promethazine Tab [Phenergan] 12.5 mg PO Q12HP PRN #10 tab 05/26/20 New Medications: Promethazine Tab [Phenergan] 12.5 mg PO Q12HP PRN #10 tab PRN Reason: NAUSEA/VOMITING Patient Discharge Instructions: OK TO DC IV AND DC HOME. FOLLOW-UP WITH PRIMARY CARE PROVIDER IN 1-2 WEEKS. FOLLOW-UP WITH GENERAL SURGERY IN 1-2 WEEKS. RETURN TO THE ER IF SYMPTOMS WORSEN. CALL or TEXT DR. SIMMONS AT [phone] IF ANY QUESTIONS REGARDING HOSPITAL STAY. PLEASE CALL THE FLOOR AT [phone] IF ANY MEDICATION OR NURSING QUESTIONS. Diet: AHA Activity: Fall precautions Followup: Arash Rushing MD [ACTIVE - CAN ADMIT] - Time spent managing pt's care (in minutes): 35
== END 2020-05-26 12:10 | disposition home or self-care (01) ==
LOC: ER 08:51 → ERHOLD 14:02 → 2ND 16:13
PROVIDERS: ADMIT Family Medicine; ATTEND Hospitalist
DX: R10.11 Right upper quadrant pain (principal); N39.0 Urinary tract infection, site not specified; K82.8 Other specified diseases of gallbladder; R04.2 Hemoptysis; E87.0 Hyperosmolality and hypernatremia; I11.0 Hypertensive heart disease with heart failure; I50.40 Unspecified combined systolic (congestive) and diastolic (congestive) heart failure; K21.9 Gastro-esophageal reflux disease without esophagitis; D68.9 Coagulation defect, unspecified; E78.5 Hyperlipidemia, unspecified; F41.8 Other specified anxiety disorders; I48.91 Unspecified atrial fibrillation; R19.7 Diarrhea, unspecified; E11.9 Type 2 diabetes mellitus without complications; E27.40 Unspecified adrenocortical insufficiency; E89.3 Postprocedural hypopituitarism; E03.9 Hypothyroidism, unspecified; Z79.01 Long term (current) use of anticoagulants; Z79.52 Long term (current) use of systemic steroids; Z88.0 Allergy status to penicillin; Z88.3 Allergy status to other anti-infective agents; Z88.8 Allergy status to other drugs, medicaments and biological substances; Z86.73 Personal history of transient ischemic attack (TIA), and cerebral infarction without residual deficits; Z86.718 Personal history of other venous thrombosis and embolism; Z82.49 Family history of ischemic heart disease and other diseases of the circulatory system
CPT/HCPCS: 93005; 87040 ×2; 87088; 85025 ×2; 87086; 80048 ×2; 36415; 83735 ×2; 85610 ×2; 80076; 83605; 87077; 87186; 84484; 83690; 84145; 83880; 71275; 74175; 71045; 76705; 99285; Q9967; C9113 ×2; J0696 ×2; J7030; G0378 ×3; 81003; 81015

== ENCOUNTER 2020-07-29 19:41 | Inpatient (IN) | payer OTHER ==
--- OUTSIDE RECORDS SUMMARY | 2020-07-29 19:43 | XMS REPORT | Clinical Summary ---
:1940 Author Organization [facility] Address [address] [place] [address] Care Team Providers Name Role Phone Dany Iraheta MD Primary Care Provider [phone] Allergies Active Allergy Reactions Severity Noted Date [...] an tabletIndications: empty stomach. hypothyroidism glipiZIDE (GLUCOTROL XL) Take 2 tablets 30 tablet 6 01/18/2018 Active 2.5 MG 24 hr tablet (5 mg total) by mouth daily. Additional Information Patient taking differently: 2.5 mg Oral 2 times daily, Reported on 03/13/2018 2:11 PM cholecalciferol, vitamin D3, 50,000 unit Take 50,000 Units by mouth 0 Active Tab once every 2 weeks. hydrocortisone (CORTEF) 20 MG tablet Take 10 mg by mouth 2 (two) 0 Active times daily . fenofibrate (TRICOR) 48 MG tablet Take 48 mg by mouth daily. 0 Active omeprazole (PRILOSEC) 40 MG capsule Take 40 mg by mouth daily. 0 Active potassium chloride (KLOR-CON) 10 MEQ CR Take 10 mEq by mouth daily. 0 Active tablet LORazepam (ATIVAN) 0.5 MG tablet Take 0.5 mg by mouth as needed 0 Active for Anxiety. somatropin 5 mg/1.5 mL (3.3 mg/mL) PnIj Inject subcutaneously. 0 Active amLODIPine (NORVASC) 5 MG tablet Take 5 mg by mouth daily. 0 Active losartan (COZAAR) 100 MG tablet Take 100 mg by mouth daily. 0 Active methscopolamine (PAMINE FORTE) 5 MG Take 5 mg by mouth nightly. 0 Active tablet Active Problems Problem Noted Date Pancreatitis 01/14/2018 [...] Not on file Last Filed Vital Signs Not on file Plan of Treatment Health Maintenance Due Date Last Done Comments PNEUMOCOCCAL 65+ YRS (1 of 1 - [id number]) 2003 MEDICARE ANNUAL WELLNESS (YEAR 2 or FIRST YEAR if no 07/07/2004 IPPE) INFLUENZA VACCINE (#1) 2020 Results Not on fileafter 2019 Insurance Payer Benefit Plan / Subscriber ID Effective Dates Phone Addre ss Type Group MEDICARE MEDICARE A B [id number] 2003-Presen Medicare t AETNA - MGD CARE AETNA INDEMNITY [id number] 2013-Present Comm NON CONTR e (Home) [place] [address] Advance Directives For more information, please contact: [phone] Code Status Date Activated Date Inactivated Comments Full Code 01/14/2018 12:36 AM 01/18/2018 6:55 PM This code status was determined by: Patient
--- OUTSIDE RECORDS SUMMARY | 2020-07-29 19:44 | XMS REPORT | Continuity of Care Document ---
:1940 Author Organization [facility] t Address [address] [place] [address] Care Team Providers Name Role Phone Esequiel STRATTON, Juanpablo Primary Care Physician RODNEY DEL ROSARIO Attending Clinician Unavailable LETTY HAYES Attending Clinician Unavailable ARLENE SANDOVAL Attending Clinician Unavailable LETTY HAYES Admitting Clinician Unavailable ARLENE SANDOVAL Admitting Clinician Unavailable Problems Condition Condition Condition Status Onset Resolution Last Treating Co mments Source Name Details Category Date Date Treatment Clinician Date Pancreatit Pancreatit Disease Active [facility] 00 [place] Sepsis Sepsis Disease Active [facility] - [facility] 00 [place] Paroxysmal Paroxysmal Disease Active [facility] A-fib A-fib 01-14 [facility] - 00:[facility]: Medical 00 [place] Allergies, Adverse Reactions, Alerts Allergy Allergy Status Severity Reaction(s) Onset Inactive Treating Comm ents Source Name Type Date Date Clinician Ciproflo Propensi Active Itching [facility] 5 [facility] - adverse 00:00: Medical reaction 00 [place] s Rivaroxa Drug Active Other (See Internal [facility] ban Intolera Comments) 01-14 bleeding Mindy es - nce 00:00: Medical 00 [place] Family History Family Member Diagnosis Comments Start Date Stop Date Source Natural father Heart disease [facility] Natural mother Heart disease [facility] Social History Social Habit Start Date Stop Date Quantity Comments Source Sex Assigned At CEDRIC Hoang - [facility] Tobacco use and 2018-11-09 2018-11-09 Never used [facility] Domitila cramers - exposure 00:00:00 00:00:00 [facility] Alcohol intake 2018-11-09 2018-11-[address] [facility] [address] Guillen es - 00:00:00 00:00:00 non-drinker of Medical nter alcohol (finding) Smoking Status Start Date Stop Date Source Never smoker [facility] Medications Ordered Filled Start Stop Current Ordering Indication Dosage Frequency Signature Comments Components Source Medication Medication Date Date Medication? Clinician (SIG) Name Name cholecalcif Yes [id number] Take [facility] ghada, 3-07 50,000 [facility] - vitamin D3, 12:12: Units by Wi dical 50,000 unit 28 mouth once Ce nter Tab every 2 weeks. hydrocortis Yes 10mg Q.5D Take [address] one 3-07 by mouth 2 [facility] - (CORTEF) 20 12:12: (two) Medic al MG tablet 28 times Center daily . fenofibrate Yes 48mg QD Take [address] (TRICOR) 48 3-07 by mouth Luke s - MG tablet 12:12: daily. Medica l 28 Center omeprazole Yes 40mg QD Take [address] (PRILOSEC) 3-07 by mouth [facility] - 40 MG 12:12: daily. Medical capsule 28 [place] potassium Yes 10meq QD Take [address] chloride 3-07 mEq by [facility] - (KLOR-CON) 12:12: mouth Medica l 10 MEQ CR 28 daily. Center tablet LORazepam Yes .5mg Take 0.[address] (ATIVAN) 3-07 mg by [facility] - 0.5 MG 12:12: mouth as Medical tablet 28 needed for Center Anxiety. somatropin Yes Inject [facility] t 5 mg/1.5 mL 3-07 subcutaneo Domitila kes - (3.3 mg/mL) 12:12: usly. Medic al PnIj 28 Center levothyroxi Yes hypothyroid 125ug Take [address] ne 3-07 ism mcg by [facility] - (SYNTHROID, 12:12: mouth Medic al LEVOTHROID) 27 Every Center 125 MCG morning on tablet an empty stomach. amLODIPine 2019-0 Yes 5mg QD Take [address] (NORVASC) 5 3-07 by mouth Luke s - MG tablet 12:12: daily. Medica l 27 Center losartan 2019-0 Yes 100mg QD Take [address] (COZAAR) 3-07 mg by [facility] - 100 MG 12:12: mouth Medical tablet 27 daily. Center methscopola 2019-0 Yes 5mg QD Take [address] mine 3-07 by mouth [facility] - (PAMINE 12:12: nightly. Medica l FORTE) 5 MG 27 Center tablet glipiZIDE 2018-0 Yes 5mg QD Take [address] [address] (GLUCOTROL 5-16 tablets (5 Mindy es - XL) 2.5 MG 00:00: mg total) Me dical 24 hr 00 by mouth Center tablet daily. warfarin 2018- Yes 2.5mg QD Take 2.[address] (COUMADIN) 4-25 mg by [facility] - 2.5 MG 00:00: mouth Medical tablet 00 daily . Center gabapentin 2018-0 Yes 600mg Q.[id number] Take [address] (NEURONTIN) 4-16 [id number] mg by L ukes - 600 MG 00:00: 3D mouth 3 Medical tablet 00 (three) Center times daily . liothyronin 2018-0 Yes 5ug QD Take 5 mcg [facility] [...] no IPPE)] Future Scheduled 2003 PNEUMOCOCCAL 65+ [facility]RS [facility] - Test 00:00:00 (1 of 1 - Medical Center [id number] PCV13) [code = PNEUMOCOCCAL 65+ YRS (1 of 1 - [id number] PCV13)] Results Test Description Test Time Test [...] SOURCE(BEAKER) (test code = 2795) Urine, Voided [id number] 13:11:00 Test Item Value Reference Range Interpretation Comments LIPASE (BEAKER) (test code = 749) 45 U/L 8-78 BASIC METABOLIC [id number] 13:11:00 Test Item Value Reference Range Interpretation [...] APPLICABLE FOR DIALYSIS PATIEN TS. HEPATIC FUNCTION [id number] 13:11:00 Test Item Value Reference Range Interpretation [...] (test code = 14 U/L 6-55 347) [id number] 13:02:00 Test Item Value Reference Range Interpretation [...] PERCENT (BEAKER) (test code = 2801) TISSUE [id number] 13:06:00Surgical Pathology Report Case: [id number] Authorizing Provider: Luiz Hayes Collected: 03/14/2018 1115 Ordering Location: [facility] Endoscopy Received: 03/14/2018 1351 Services Pathologist: Mara Barboza MD Specimens: A) -Polyp, Duodenum B) - Stomach, Antrum, bx C) - Biopsy, Gastric, gastric body D) - Biopsy, Esophagus, random THIS ADDENDUM IS ISSUED TO REPORT THE RESULT OF IMMUNOHISTOCHEMICAL STUDY FOR HELICOBACTER PYLORI OM SPECIMEN B: - NEGATIVE CPT CODE: [id number] electronically signed by Mara Barboza MD on [...] MALIGNANCY SEEN Signing Pathologist Direct Phone Line: [phone] signed by Mara Barboza MD on 03/17/2018 at 10:35 [id number] X 4; [id number] X 2A. Polyp, duodenum. B. Stomach antrum. [...] the diagnostic report above:AMBER X 2 POCT-GLUCOSE [id number] 12:41:00 Test Item Value Reference Range Interpretation Comments POC-GLUCOSE METER 75 mg/dL 70-110 TESTED AT [place] [address] ([facility]) (test code = [facility] [address] 1538) BLOOD [id number] 06:00:00 Test Item Value Reference Range Interpretation Comments CULTURE (BEAKER) (test No growth in 5 days code = 1095) BLOOD [id number] 06:00:00 Test Item Value Reference Range Interpretation Comments CULTURE (BEAKER) (test No growth in 5 days code = 1095) POCT-GLUCOSE [id number] 12:32:00 Test Item Value Reference Range Interpretation Comments POC-GLUCOSE METER 217 mg/dL 70-110 H TESTED AT [place] [address] ([facility]) (test code = [facility] 1538) [address] POCT-GLUCOSE [id number] 08:36:00 Test Item Value Reference Range Interpretation Comments POC-GLUCOSE METER 92 mg/dL 70-110 TESTED AT [place] [address] ([facility]) (test code = [facility] [address] 1538) COMPREHENSIVE METABOLIC [id number] 04:59:00 Test Item Value Reference Range Interpretation Comments TOTAL PROTEIN 5.2 gm/dL 6.0-8.3 L ([facility]) (test code = 770) ALBUMIN ([facility]) 3.0 g/dL 3.5-5.0 L (test code = [...] S NOT APPLICABLE FOR DIALYSIS PATIEN TS. [id number] 04:50:00 Test Item Value Reference Range Interpretation Comments MAGNESIUM (BEAKER) (test code = 1.7 mg/dL 1.6-2.6 627) PROTHROMBIN [id number] 04:35:00 Test Item Value Reference Range Interpretation [...] 417) IMMATURE GRANULOCYTES-RELATIVE 1 % 0-1 PERCENT ([facility]) (test code = 2801) POCT-GLUCOSE [id number] 22:13:00 Test Item Value Reference Range Interpretation Comments POC-GLUCOSE METER 194 mg/dL 70-110 H TESTED AT [place] [address] ([facility]) (test code = [facility] 1538) [address] POCT-GLUCOSE [id number] 18:14:00 Test Item Value Reference Range Interpretation Comments POC-GLUCOSE METER 195 mg/dL 70-110 H TESTED AT [place] [address] ([facility]) (test code = [facility] 1538) [address] POCT-GLUCOSE [id number] 12:20:00 Test Item Value Reference Range Interpretation Comments POC-GLUCOSE METER 224 mg/dL 70-110 H TESTED AT [place] [address] ([facility]) (test code = [facility] 1538) [address] [id number] 08:55:00 Test Item Value Reference Range Interpretation Comments LIPASE ([facility]) (test code = 749) 471 U/L 8-78 H POCT-GLUCOSE [id number] 08:12:00 Test Item Value Reference Range Interpretation Comments POC-GLUCOSE METER 128 mg/dL 70-110 H TESTED AT [place] [address] ([facility]) (test code = [facility] 1538) [address] [id number] 04:12:00 Test Item Value Reference Range Interpretation Comments T3 TOTAL ([facility]) (test code = 656) 41 ng/dL 48-159 L T3, [id number] 04:11:00 Test Item Value Reference Range Interpretation Comments T3 FREE ([facility]) (test code = 908) 1.31 pg/mL 1.71-3.71 L COMPREHENSIVE METABOLIC [id number] 04:01:00 Test Item Value Reference Range Interpretation Comments TOTAL PROTEIN 4.8 gm/dL 6.0-8.3 L (AKER) (test code = 770) ALBUMIN ([facility]) 2.8 g/dL 3.5-5.0 L (test code = 1145) ALKALINE PHOSPHATASE 33 U/L 40-150 L ([facility]) (test code = 346) BILIRUBIN TOTAL 0.4 [...] S NOT APPLICABLE FOR DIALYSIS PATIEN TS. [id number] 03:54:00 Test Item Value Reference Range Interpretation Comments MAGNESIUM (BEAKER) (test code = 1.7 mg/dL 1.6-2.6 627) PROTHROMBIN [id number] 03:53:00 Test Item Value Reference Range Interpretation [...] % 0-1 PERCENT (BEAKER) (test code = 6917) POCT-GLUCOSE [id number] 22:34:00 Test Item Value Reference Range Interpretation Comments POC-GLUCOSE METER 252 mg/dL 70-110 H TESTED AT [facility] [address] [facility] (test code = [facility] 1538) [address] [id number] 19:36:00 Test Item Value Reference Range Interpretation Comments MAGNESIUM (BEAKER) (test code = 1.6 mg/dL 1.6-2.6 627) BASIC METABOLIC [id number] 19:36:00 Test Item Value Reference Range Interpretation [...] NOT APPLICABLE FOR DIALYSIS PATIEN TS. URINE [id number] 11:51:00 Test Item Value Reference Range Interpretation Comments CULTURE (BEAKER) (test code = 1095) No growth POCT-GLUCOSE [id number] 11:42:00 Test Item Value Reference Range Interpretation Comments POC-GLUCOSE METER 205 mg/dL 70-110 H TESTED AT [facility] [address] [facility] (test code = [facility] 1538) [address] POCT-GLUCOSE [id number] 08:08:00 Test Item Value Reference Range Interpretation Comments POC-GLUCOSE METER 119 mg/dL 70-110 H TESTED AT [facility] [address] ([facility]) (test code = [facility] 1538) [address] C. DIFFICILE GDH [id number] 07:40:00 Test Item Value Reference Range Interpretation Comments CDT TOXIN (test code Negative Negative = [id number]) CDT GDH ANTIGEN Positive Negative A C. difficile present but (test code = toxin not detec leesa. [id number]) Indicates colon ization with non-toxige lizbeth strain or level of tox in below detectable leve ls. No need for enteri c isolation. Duran atment is rarely needed ( only when strong clinical suspicion for Clostridium difficile infection) Testing performed by [employer] Rapid [employer] Assay. For GDH, published sensitivity of the assay is 98.7% compared to cytotoxicity testing. For Toxin AB, published sensitivity is 87.8% and specificity 99.4% compared to cytotoxicity testing.Verification of kit performance was done by the [facility] prior to clinical use.POCT-GLUCOSE [id number] 06:37:00 Test Item Value Reference Range Interpretation Comments POC-GLUCOSE METER 141 mg/dL 70-110 H TESTED AT [facility] [address] ([facility]) (test code = [place] 1538) [address] COMPREHENSIVE METABOLIC [id number] 04:48:00 Test Item Value Reference Range Interpretation Comments TOTAL PROTEIN 4.7 gm/dL 6.0-8.3 L (BEAKER) (test code = 770) ALBUMIN (BEAKER) 2.7 g/dL 3.5-5.0 L (test code = 1145) ALKALINE PHOSPHATASE 33 U/L 40-150 L (BEAKER) (test code = 346) BILIRUBIN TOTAL 0.4 mg/dL 0.2-1.2 (AKER) (test code = 377) SODIUM (BEAKER) (test [...] NOT APPLICABLE FOR DIALYSIS PATIEN TS. PROTHROMBIN [id number] 04:40:00 Test Item Value Reference Range Interpretation Comments PROTIME (BEAKER) (test code = 23.8 seconds 11.7-14.7 H 759) INR (BEAKER) (test code = 370) 2.1 <=5.9 RECOMMENDED COUMADIN/WARFARIN INR THERAPY RANGESSTANDARD DOSE: 2.0 - 3.0 Includes: PROPHYLAXIS forvenous thrombosis, systemic embolization; TREATMENT for venous thrombosis and/or pulmonary embolus.HIGH RISK: Target INR is 2.5-3.5 for patients with mechanical heart valves.While on warfarin.[id number] 04:29:00 Test Item Value Reference Range Interpretation Comments MAGNESIUM (BEAKER) (test code = 2.0 mg/dL 1.6-2.6 627) CBC W/PLT COUNT & AUTO [id number] 04:11:00 Test Item Value Reference Range Interpretation [...] PERCENT (BEAKER) (test code = 2801) POCT-GLUCOSE [id number] 22:19:00 Test Item Value Reference Range Interpretation Comments POC-GLUCOSE METER 266 mg/dL 70-110 H TESTED AT [facility] 67[address] (BEAKER) (test code = [place] 1538) [address] [id number] 17:54:00 Test Item Value Reference Range Interpretation Comments POTASSIUM (BEAKER) (test code = 4.2 meq/L 3.5-5.1 379) [id number] 17:23:00 Test Item Value Reference Range Interpretation Comments MAGNESIUM (BEAKER) (test code = 1.7 mg/dL 1.6-2.6 627) POCT-GLUCOSE [id number] 12:41:00 Test Item Value Reference Range Interpretation Comments POC-GLUCOSE METER 111 mg/dL 70-110 H TESTED AT [facility] 67[address] (BEAKER) (test code = MICAH Kaye [facility] 1538) [address] [id number] 12:40:00 Test Item Value Reference Range Interpretation Comments POTASSIUM (BEAKER) (test code = 3.5 meq/L 3.5-5.1 379) POCT-GLUCOSE [id number] 10:05:00 Test Item Value Reference Range Interpretation Comments POC-GLUCOSE METER 94 mg/dL 70-110 TESTED AT [facility] 67[address] (BEAKER) (test code = MICAH Kaye [facility] [address] 1538) COMPREHENSIVE METABOLIC [id number] 05:47:00 Test Item Value Reference Range Interpretation [...] S NOT APPLICABLE FOR DIALYSIS PATIEN TS. [id number] 05:44:00 Test Item Value Reference Range Interpretation Comments MAGNESIUM (BEAKER) (test code = 2.0 mg/dL 1.6-2.6 627) PROTHROMBIN [id number] 05:37:00 Test Item Value Reference Range Interpretation Comments PROTIME (BEAKER) (test code = 24.0 seconds 11.7-14.7 H 759) INR (BEAKER) (test code = 370) 2.2 <=5.9 RECOMMENDED COUMADIN/WARFARIN INR THERAPY RANGESSTANDARD DOSE: 2.0 - 3.0 Includes: PROPHYLAXIS forvenous thrombosis, systemic embolization; TREATMENT for venous thrombosis and/or pulmonary embolus.HIGH RISK: Target INR is 2.5-3.5 for patients with mechanical heart valves.PROTHROMBIN [id number] 05:36:00 Test Item Value Reference Range Interpretation [...] valves.While on warfarin.CBC W/PLT COUNT & AUTO [id number] 05:35:00 Test Item Value Reference Range Interpretation [...] PERCENT (BEAKER) (test code = 2801) POCT-GLUCOSE [id number] 23:56:00 Test Item Value Reference Range Interpretation Comments POC-GLUCOSE METER 105 mg/dL 70-110 TESTED AT [facility] 67[address] ([facility]) (test code = [place] 1538) [address] TROPONIN [id number] 13:02:00 Test Item Value Reference Range Interpretation Comments TROPONIN I (BEAKER) (test code = 0.02 ng/mL 0.00-0.03 397) [...] 0-100 H (test code = 700) POCT-GLUCOSE [id number] 12:18:00 Test Item Value Reference Range Interpretation Comments POC-GLUCOSE METER 175 mg/dL 70-110 H TESTED AT [facility] 67[address] (MATTHEW) (test code = [place] 1538) [address] U/S, ABDOMINAL, [id number] 10:23:00Abdomen limited area? Add comment if clarification [...] evidence of cholelithiasis or cholecystitis. Signed: Augustine Coffey MDReport Verified Date/Time: 01/14/2018 10:23:02 Reading Location: [facility] C013X Ortho Consult Reading Room T4, [id number] 08:42:00 Test Item Value Reference Range Interpretation Comments FREE T4 (BEAKER) (test code = 655) 0.83 ng/dL 0.70-1.48 POCT-GLUCOSE [id number] 08:37:00 Test Item Value Reference Range Interpretation Comments POC-GLUCOSE METER 161 mg/dL 70-110 H TESTED AT [facility] [facility] (test code = MICAH Kaye [facility] 1538) [address] TSH/FREE T4 IF [id number] 08:05:00 Test Item Value Reference Range Interpretation Comments THYROID STIMULATING HORMONE 0.02 uIU/mL 0.35-4.94 L (BEAKER) (test code = 772) VITAMIN B12 AND [id number] 07:42:00 Test Item Value Reference Range Interpretation Comments VITAMIN B12 (BEAKER) (test code = 1276 pg/mL 213-816 H 774) FOLATE (BEAKER) (test code = 362) 8.8 ng/mL >=7.0 LIPID [id number] 07:14:00 Test Item Value Reference Range Interpretation [...] Borderline 130-159 High 160-189 Very High >=190TROPONIN [id number] 07:12:00 Test Item Value Reference Range Interpretation [...] acute neurological disease, and persistent tachyarrhythmia.URINALYSIS W/ [id number] 06:35:00 Test Item Value Reference Range Interpretation [...] 517) SOURCE(BEAKER) (test code = Urine, [place] 3905) [id number] 06:07:00 Test Item Value Reference Range Interpretation Comments MAGNESIUM (BEAKER) (test code = 1.8 mg/dL 1.6-2.6 627) [id number] 05:32:00 Test Item Value Reference Range Interpretation Comments MAGNESIUM (BEAKER) (test code = 2.5 mg/dL 1.6-2.6 627) COMPREHENSIVE METABOLIC [id number] 05:32:00 Test Item Value Reference Range Interpretation [...] NOT APPLICABLE FOR DIALYSIS PATIEN TS. PROTHROMBIN [id number] 05:10:00 Test Item Value Reference Range Interpretation [...] 0-1 PERCENT (BEAKER) (test code = 2801) [id number] 02:52:00 Test Item Value Reference Range Interpretation Comments PROCALCITONIN (BEAKER) (test code 0.41 ng/mL <0.05 H = 3036) SEPSIS RISK (ng/mL)Low: 0.05-0.50Intermediate: 0.51-2.00High: >=2.01LACTIC ACID, VENOUS, WHOLE [id number] 02:06:00 Test Item Value Reference Range Interpretation Comments LACTATE BLOOD VENOUS 1.3 mmol/L 0.5-2.2 Specime n slightly (2) (BEAKER) (test hemolyzed code = 2872) Effective 01/07/2016: Units/Reference Range ChangeNew: 0.5-2.2 mmol/L Previous: 5-20 mg/dLCOMPREHENSIVE METABOLIC [id number] 02:06:00 Test Item Value Reference Range Interpretation [...] S NOT APPLICABLE FOR DIALYSIS PATIEN TS. [id number] 02:04:00 Test Item Value Reference Range Interpretation Comments LIPASE (BEAKER) (test code = 749) 730 U/L 8-78 H [id number] 02:04:00 Test Item Value Reference Range Interpretation Comments AMYLASE (BEAKER) (test code = 349) 226 U/L 25-125 H PROTHROMBIN [id number] 01:45:00 Test Item Value Reference Range Interpretation Comments PROTIME (BEAKER) (test code = 23.9 seconds 11.7-14.7 H 759) INR (BEAKER) (test code = 370) 2.1 <=5.9 RECOMMENDED COUMADIN/WARFARIN INR THERAPY RANGESSTANDARD DOSE: 2.0 - 3.0 Includes: PROPHYLAXIS forvenous thrombosis, systemic embolization; TREATMENT for venous thrombosis and/or pulmonary embolus.HIGH RISK: Target INR is 2.5-3.5 for patients with mechanical heart valves.[id number] 01:45:00 Test Item Value Reference Range Interpretation Comments PARTIAL THROMBOPLASTIN TIME 32.4 seconds 22.5-36.0 (BEAKER) (test code = 760) CBC W/PLT COUNT & AUTO [id number] 01:38:00 Test Item Value Reference Range Interpretation [...] % 0-1 PERCENT (BEAKER) (test code = 2721)
[2020-07-29] MEDS ORDERED: VANCOMYCIN 1 GM/VIAL ONE (21:26)
[2020-07-29] MEDS ORDERED: PIPER/TAZO/NS 3.375gm 0 GM/0 ML BAG ONE (21:26)
[2020-07-29] MEDS ORDERED: HYDROCORTISONE SUC 100 MG INJ ONE (21:26)
[2020-07-29] MEDS ORDERED: NA CHLORIDE 0.9% 0 ML ONE (21:27)
[2020-07-29] MEDS ORDERED: NA CHLORIDE 0.9% 250 ML ONE (21:30)
[2020-07-29] MEDS ORDERED: CEFEPIME 2 GM VIAL ONE (21:56)
[2020-07-29] MEDS ORDERED: NA CHLORIDE 0.9% 100 ML ONE (21:56)
--- NOTE | 2020-07-29 21:58 | ER ---
Nurse's Notes [facility] Name: Emelia Payan Age: 80 yrs Sex: Female : 1940 Arrival Date: 07/29/2020 Time: 19:44 Bed 13 Private MD: Diagnosis: Cellulitis of left lower limb Presentation: 07/29 20:05 Chief complaint: Patient states: L leg and foot swelling and leaking x 3 weeks. 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 Hurts from L mid leg to the L toes. Denies fever. Hx of Lympha roberto carlos on both legs. Coronavirus screen: Client denies travel out of the [place] in the last 14 days. At this time, the client does not indicate any symptoms associated with coronavirus-19. Ebola Screen: Patient negative for fever greater than or equal to 101.5 degrees Fahrenheit, and additional compatible Ebola Virus Disease symptoms Patient denies exposure to infectious person. Patient denies travel to an Ebola-affected area in the 21 days before illness onset. No symptoms or risks identified at this time. Initial Sepsis Screen: Does the patient meet any 2 criteria? No. Patient's initial sepsis screen is negative. Does the patient have a suspected source of infection? No. Patient's initial sepsis screen is negative. Risk Assessment: Do you want to hurt yourself or someone else? Patient reports no desire to harm self or others. Onset of symptoms was July 29, 2020 at 19:00. 20:05 Method Of Arrival: Wheelchair ca1 20:05 Acuity: EDIS 3 ca1 Historical: - Allergies: 20:10 Cipro; ca1 20:10 Xarelto; ca1 20:10 Bactrim; ca1 - Home Meds: 21:06 hydrocortisone 20 mg oral tab 1.5 tabs 2 times per day [Active]; Omnitrope 5 mg/1.5 mL ca1 (3.3 mg/mL) subcutaneous crtg once daily [Active]; Vitamin D3 50,000 units Oral tab twice a day [Active]; liothyronine 5 mcg Oral tab 1 tab once daily [Active]; Klor-Con 10 10 mEq Oral TbER 1 tab once daily [Active]; glipizide 2.5 mg Oral tr24 1 tabs once daily [Active]; levothyroxine 125 mcg oral tab 1 tab once daily [Active]; atorvastatin 40 mg oral tab 1 tab once daily [Active]; amlodipine 5 mg tab 2 tabs once daily [Active]; warfarin 2 mg oral tab 1 tab once daily [Active]; sotalol 160 mg Oral tab 1 tab 2 times per day [Active]; fenofibrate 145 mg Oral 1 tab once daily [Active]; losartan potassium 100 mg 1 tab daily [Active]; clonazepam 0.5 mg Oral tab 1 tab as needed [Active]; methscopolamine 5 mg oral tab 1 tab daily [Active]; Dexilant 60 mg Oral CpDB 1 cap once daily [Active]; - PMHx: 20:10 adrenal insuficiency; Anxiety; Atrial Fib; CHF; CVA; Diabetes - IDDM; DVT; ca1 Hyperlipidemia; Hypertension; Hypothyroidism; Pancreatitis; - PSHx: 20:10 Appendectomy; pituitary; Carpal Tunnel Repair; Lumpectomy; ca1 - Immunization history:: Adult Immunizations up to date, Pneumococcal vaccine is up to date, Flu vaccine is up to date. - Social history:: Smoking status: Patient denies any tobacco usage or history of. Screenin:45 Abuse screen: Denies threats or abuse. Denies injuries from another. Nutritional zb screening: No deficits noted. Tuberculosis screening: No symptoms or risk factors identified. Fall Risk Fall in past 12 months (25 points). Secondary diagnosis (15 points) CVA, IV access (20 points). Ambulatory Aid- Crutches/Cane/Walker (15 pts). Gait- Impaired (20 pts.). Mental Status- Oriented to own ability (0 pts). Total Dickens Fall Scale indicates High Risk Score (45 or more points). Fall prevention measures have been instituted. Side Rails Up X 2 Placed Close to Nursing Station Frequent Obs/Assessments Occuring Family Present and informed to notify staff if the need to leave the bedside As available patient and family educated on Fall Prevention Program and Strategies. Assessment: 21:45 General: Appears in no apparent distress. uncomfortable, obese, Behavior is zb cooperative, appropriate for age, anxious, Reports feeling ill for. Pain: Complains of pain in left leg Pain currently is 10 out of 10 on a pain scale. Quality of pain is described as tender, Is continuous. Neuro: Level of Consciousness is awake, alert, obeys commands, Oriented to person, place, time, situation. Cardiovascular: Capillary refill < 3 seconds in bilateral fingers Patient's skin is warm and dry. Cardiovascular: Edema is 2+ to left leg. Cardiovascular: Heart tones S1 S2 Respiratory: Airway is patent Respiratory effort is even, unlabored. GI: Abdomen is round non-distended. GI: Abdomen is Bowel sounds present X 4 quads. : No signs and/or symptoms were reported regarding the genitourinary system. Derm: Skin is intact. Derm: LLE hot, touch, swollen, claudia, and tender. Derm: Skin is. Musculoskeletal: Swelling Bilateral +2 edema in legs. Right leg discoloration-brown starting from the nettles down (not new). Left leg reddness, swelling, TTP. 22:45 Reassessment: Patient appears in no apparent distress at this time. Patient and/or jd3 family updated on plan of care and expected duration. Pain level reassessed. Patient is alert, oriented x 3, equal unlabored respirations, skin warm/dry/pink. 23:24 Reassessment: Patient appears in no apparent distress at this time. Patient and/or jd3 family updated on plan of care and expected duration. Pain level reassessed. Patient is alert, oriented x 3, equal unlabored respirations, skin warm/dry/pink. Vital Signs: 20:05 BP 156 / 86; Pulse 90; Resp 18 S; Temp 99.2(O); Pulse Ox 100% on R/A; Weight 79.38 kg ca1 (R); Height 5 ft. 4 in. (162.56 cm) (R); Pain 10/10; 22:26 BP 129 / 50; Pulse 91; Resp 14; Pulse Ox 99% on R/A; zb 22:41 BP 117 / 63; Pulse 97; Resp 14 S; Pulse Ox 96% on R/A; jd3 20:05 Body Mass Index 30.04 (79.38 kg, 162.56 cm) ca1 ED Course: 19:44 Patient arrived in ED. cl3 20:08 Triage completed. ca1 20:10 Arm band placed on right wrist. EKG completed in triage. Results shown to MD. EKG ca1 completed in triage. Results shown to MD. 20:53 Hi Vila NP is PHCP. pm1 20:53 Jose Elias Marquez MD is Attending Physician. pm1 21:09 Lorenza Acosta RN is Primary Nurse. zb 21:30 Extrem Venous W Compression Anderson US In Process Unspecified. EDMS 21:48 Tib Fib Left XRAY In Process Unspecified. EDMS 21:48 XRAY Chest (1 view) In Process Unspecified. EDMS 21:58 Raul Cox DO is Hospitalizing Provider. pm1 22:25 Patient has correct armband on for positive identification. Bed in low position. Call zb light in reach. Side rails up X2. Adult w/ patient. teletypesetter monitor on. Pulse ox on. NIBP on. 22:26 Inserted saline lock: 22 gauge in right antecubital area, using aseptic technique. zb 22:41 No provider procedures requiring assistance completed. Patient admitted, IV remains in jd3 place. Administered Medications: 21:37 Not Given (Physician Discretion): Zosyn 3.375 grams IVPB once over 60 mins; (mix in NS pm1 100 mL) 22:13 Drug: Cefepime 2 grams Route: IVPB; Rate: 200 ml/hr; Infused Over: 30 mins; Site: right zb antecubital; 22:36 Follow up: Response: No adverse reaction; IV Status: Completed infusion; IV Intake: zb 200ml 22:14 Drug: Solu-CORTEF 100 mg Route: IVP; Site: right antecubital; zb 22:37 Follow up: Response: No adverse reaction zb 22:36 Drug: vancoMYCIN 1 grams Route: IVPB; Infused Over: 2 hrs; Site: right antecubital; zb 22:43 Follow up: Response: No adverse reaction; IV Status: Infusion continued upon admission jd3 Intake: 22:36 IV: 200ml; Total: 200ml. zb Outcome: 21:58 Decision to Hospitalize by Provider. pm1 22:41 Condition: stable jd3 22:41 Instructed on the need for admit. 23:24 Admitted to Med/surg accompanied by tech, via stretcher, room 221, with chart, Report jd3 called to Rene DONALD 23:24 Patient left the ED. jd3 Signatures: Dispatcher [employer] EDMS Hi Vila, TIBURCIO CERTIFIED DIABETES EDUCATOR pm1 Owen Marrero RN RN jd3 Josephine Curry RN RN ca1 Edmar Romero cl3 Lorenza Acosta, RN RN zb
--- NOTE | 2020-07-29 21:59 | EDPHYS ---
Physician Documentation [facility] Name: Emelia Payan Age: 80 yrs Sex: Female : 1940 Arrival Date: 07/29/2020 Time: 19:44 Bed 13 Private MD: ED Physician Jose Elias Marquez HPI: 07/29 21:05 This 80 yrs old Female presents to ER via Wheelchair with complaints of Left pm1 Leg Swelling. 21:05 The patient presents with pain, swelling, tenderness. The complaints affect the left pm1 lower leg. Context: resulted from an unknown cause. Onset: The symptoms/episode began/occurred Swelling onset 3 weeks ago with redness appearing 3 days ago. Modifying factors: The symptoms are alleviated by nothing. the symptoms are aggravated by weight bearing. Associated signs and symptoms: Pertinent positives: swelling, Pertinent negatives fever. Treatment prior to arrival includes: no previous treatment. Severity of symptoms: in the emergency department the symptoms are actually worse. Historical: - Allergies: 20:10 Cipro; ca1 20:10 Xarelto; ca1 20:10 Bactrim; ca1 - Home Meds: 21:06 hydrocortisone 20 mg oral tab 1.5 tabs 2 times per day [Active]; Omnitrope 5 mg/1.5 mL ca1 (3.3 mg/mL) subcutaneous crtg once daily [Active]; Vitamin D3 50,000 units Oral tab twice a day [Active]; liothyronine 5 mcg Oral tab 1 tab once daily [Active]; Klor-Con 10 10 mEq Oral TbER 1 tab once daily [Active]; glipizide 2.5 mg Oral tr24 1 tabs once daily [Active]; levothyroxine 125 mcg oral tab 1 tab once daily [Active]; atorvastatin 40 mg oral tab 1 tab once daily [Active]; amlodipine 5 mg tab 2 tabs once daily [Active]; warfarin 2 mg oral tab 1 tab once daily [Active]; sotalol 160 mg Oral tab 1 tab 2 times per day [Active]; fenofibrate 145 mg Oral 1 tab once daily [Active]; losartan potassium 100 mg 1 tab daily [Active]; clonazepam 0.5 mg Oral tab 1 tab as needed [Active]; methscopolamine 5 mg oral tab 1 tab daily [Active]; Dexilant 60 mg Oral CpDB 1 cap once daily [Active]; - PMHx: 20:10 adrenal insuficiency; Anxiety; Atrial Fib; CHF; CVA; Diabetes - IDDM; DVT; ca1 Hyperlipidemia; Hypertension; Hypothyroidism; Pancreatitis; - PSHx: 20:10 Appendectomy; pituitary; Carpal Tunnel Repair; Lumpectomy; ca1 - Immunization history:: Adult Immunizations up to date, Pneumococcal vaccine is up to date, Flu vaccine is up to date. - Social history:: Smoking status: Patient denies any tobacco usage or history of. ROS: 21:05 Constitutional: Negative for fever, chills, and weight loss, Cardiovascular: Negative pm1 for chest pain, palpitations, and edema, Respiratory: Negative for shortness of breath, cough, wheezing, and pleuritic chest pain, Abdomen/GI: Negative for abdominal pain, nausea, vomiting, diarrhea, and constipation. 21:05 Neuro: Negative for headache, weakness, numbness, tingling, and seizure. 21:05 MS/extremity: Positive for pain, swelling, tenderness, of the left leg. 21:05 Skin: Positive for cellulitis, erythema, of the left leg. Exam: 21:05 Constitutional: This is a well developed, well nourished patient who is awake, alert, pm1 and in no acute distress. Head/Face: Normocephalic, atraumatic. 21:05 Cardiovascular: Exam negative for acute changes, Rate: normal, Rhythm: regular, Pulses: no pulse deficits are appreciated. 21:05 Respiratory: Exam negative for acute changes, respiratory distress, shortness of breath. 21:05 Musculoskeletal/extremity: Extremities: grossly normal except: pain, swelling, tenderness, Left lower leg from just below knee to foot. 21:05 Neuro: Exam negative for acute changes, Orientation: is normal, Mentation: is normal, Motor: is normal, moves all fours. 21:05 Skin: Appearance: normal except for affected area, cellulitis, well demarcated, on the pm1 lateral aspect of left calf, medial aspect of left calf and left nettles. Vital Signs: 20:05 BP 156 / 86; Pulse 90; Resp 18 S; Temp 99.2(O); Pulse Ox 100% on R/A; Weight 79.38 kg ca1 (R); Height 5 ft. 4 in. (162.56 cm) (R); Pain 10/10; 22:26 BP 129 / 50; Pulse 91; Resp 14; Pulse Ox 99% on R/A; zb 22:41 BP 117 / 63; Pulse 97; Resp 14 S; Pulse Ox 96% on R/A; jd3 20:05 Body Mass Index 30.04 (79.38 kg, 162.56 cm) ca1 MDM: 20:53 Patient medically screened. pm1 21:57 Data reviewed: vital signs. Data interpreted: Pulse oximetry: on room air is 100 %. pm1 Interpretation: normal. Counseling: I had a detailed discussion with the patient and/or guardian regarding: the historical points, exam findings, and any diagnostic results supporting the discharge/admit diagnosis, the need for further work-up and treatment in the hospital. 07/29 21:02 Order name: Basic Metabolic Panel; Complete Time: 22:21 pm1 07/29 21:02 Order name: CBC with Diff; Complete Time: 23:22 pm1 07/29 21:02 Order name: LFT's; Complete Time: 22:21 pm1 07/29 21:02 Order name: Magnesium; Complete Time: 22:21 pm1 07/29 21:02 Order name: NT PRO-BNP; Complete Time: 22:21 pm1 07/29 21:02 Order name: PT-INR; Complete Time: 22:34 pm1 07/29 20:17 Order name: Extrem Venous W Compression Adnerson US; Complete Time: 22:10 pm1 07/29 21:00 Order name: Tib Fib Left XRAY pm1 07/29 21:02 Order name: Troponin (emerg Dept Use Only); Complete Time: 22:21 pm1 07/29 21:02 Order name: Blood Culture Adult (2) pm07/29 21:02 Order name: Procalcitonin; Complete Time: 23:22 pm1 07/29 21:02 Order name: Lactate; Complete Time: 22:34 pm1 07/29 22:04 Order name: Manual Differential; Complete Time: 23:22 EDMS 07/29 23:01 Order name: COVID-19 la1 07/29 21:02 Order name: XRAY Chest (1 view) pm1 07/29 21:02 Order name: EKG; Complete Time: 21:03 pm1 07/29 21:02 Order name: Cardiac monitoring; Complete Time: 21:04 pm1 07/29 21:02 Order name: EKG - Nurse/Tech; Complete Time: 22:41 pm1 07/29 21:02 Order name: IV Saline Lock; Complete Time: 22:41 pm1 07/29 21:02 Order name: Labs collected and sent; Complete Time: 22:41 pm1 07/29 21:02 Order name: O2 Per Protocol; Complete Time: 21:04 pm1 07/29 21:02 Order name: O2 Sat Monitoring; Complete Time: 21:04 pm1 Administered Medications: 21:37 Not Given (Physician Discretion): Zosyn 3.375 grams IVPB once over 60 mins; (mix in NS pm1 100 mL) 22:13 Drug: Cefepime 2 grams Route: IVPB; Rate: 200 ml/hr; Infused Over: 30 mins; Site: right zb antecubital; 22:36 Follow up: Response: No adverse reaction; IV Status: Completed infusion; IV Intake: zb 200ml 22:14 Drug: Solu-CORTEF 100 mg Route: IVP; Site: right antecubital; zb 22:37 Follow up: Response: No adverse reaction zb 22:36 Drug: vancoMYCIN 1 grams Route: IVPB; Infused Over: 2 hrs; Site: right antecubital; zb 22:43 Follow up: Response: No adverse reaction; IV Status: Infusion continued upon admission jd3 Disposition: 07/30 11:00 Co-signature as Attending Physician, Jose Elias Marquez MD I agree with the assessment and gilberto plan of care. Disposition: 07/29/20 21:58 Hospitalization ordered by Raul Cox for Inpatient Admission. Preliminary diagnosis is Cellulitis of left lower limb. - Bed requested for Telemetry/MedSurg (Inpatient). - Status is Inpatient Admission. jd3 - Condition is Stable. - Problem is new. - Symptoms have improved. Signatures: Dispatcher [employer] EDJose Elias Benedict MD MD cha Attema, Lee, MRP CONTROLLER-C MRP CONTROLLER-Cla1 Malou Mercado RN RN cg Marinas, Patrick, NP CNC WOOD LATHE OPERATOR pm1 Owen Marerro RN RN jd3 Josephine Curry RN RN ca1 Brown, Zipporah, RN RN zb Corrections: (The following items were deleted from the chart) 07/29 22:32 21:58 Hospitalization Ordered by Raul Cox DO for Inpatient Admission. Preliminary cg diagnosis is Cellulitis of left lower limb. Bed requested for Telemetry/MedSurg (Inpatient). Status is Inpatient Admission. Condition is Stable. Problem is new. Symptoms have improved. pm1 22:40 22:32 07/29/2020 21:58 Hospitalization Ordered by Raul Cox DO for Inpatient cg Admission. Preliminary diagnosis is Cellulitis of left lower limb. Bed requested for Telemetry/MedSurg (Inpatient). Status is Inpatient Admission. Condition is Stable. Problem is new. Symptoms have improved. cg 23:24 22:40 07/29/2020 21:58 Hospitalization Ordered by Raul Cox DO for Inpatient jd3 Admission. Preliminary diagnosis is Cellulitis of left lower limb. Bed requested for Telemetry/MedSurg (Inpatient). Status is Inpatient Admission. Condition is Stable. Problem is new. Symptoms have improved. cg
--- NOTE | 2020-07-29 22:00 | RAD REPORT ---
EXAM DESCRIPTION: US - Extrem Venous W Compress Anderson - 07/29/2020 9:29 pm CLINICAL HISTORY: Swelling;Pain Bilateral leg edema and swelling. COMPARISON: Extrem Venous W Compress Anderson dated 12/05/2017 TECHNIQUE: Real-time sonographic interrogation of the left and right lower extremity deep venous sys tems was performed. FINDINGS: Normal compressibility, flow augmentation, phasic flow and spontaneous flow is identified in both the left and right lower extremity deep venous systems. IMPRESSION: No sonographic evidence of left or right lower extremity deep venous thrombosis.
[2020-07-29 22:01] LABS: Absolute Lymphocytes (CBC) 0.3 K/uL (0.7-4.9); Basophils % 0.2 % (0-1.3); Hematocrit 41.5 % (36.0-45.0); Lymphocytes % 6.4 % (15.3-44.8); MPV 8.9 fL (7.6-11.3); RBC Red Blood Cell Count 4.38 M/uL (3.86-4.86)
[2020-07-29 22:19] LABS: ALT/SGPT 16 U/L (12-78); AST/SGOT 11 U/L (15-37); Albumin 3.3 g/dL (3.4-5.0); Alkaline Phosphatase 73 U/L (45-117); BUN Blood Urea Nitrogen 27 mg/dL (7-18); Bicarbonate 25 mmol/L (21-32); Bilirubin Direct 0.2 mg/dL (0-0.2); Bilirubin Total 0.5 mg/dL (0.2-1.0); Glucose Level 188 mg/dL (74-106); Magnesium 1.9 mg/dL (1.8-2.4); NT PRO-BNP 506 pg/mL (<450); Potassium 3.3 mmol/L (3.5-5.1); Protein, Total 6.7 g/dL (6.4-8.2); Sodium Level 148 mmol/L (136-145); Troponin (Emerg Dept Use Only) < 0.02 ng/mL (0.0-0.045)
[2020-07-29 22:28] LABS: Protime INR 1.49
--- NOTE | 2020-07-29 22:49 | P.HP ---
Certification for Inpatient Patient admitted to: Inpatient With expected LOS: >2 Midnights Patient will require the following post-hospital care: None Practitioner: I am a practitioner with admitting privileges, knowledge of patient current condition, hospital course, and medical plan of care. Services: Services provided to patient in accordance with Admission requirements found in Title 42 Section 412.3 of the Code of Federal Regulations Patient History Date of Service: 07/29/20 Primary Care Provider: Dr. Reilly Reason for admission: Left lower extremity cellulitis History of Present Illness: 80-year-old female with history of systolic congestive heart failure, atrial fibrillation on chronic anticoagulation therapy with Coumadin, chronic hypernatremia, diabetes mellitus type 2-insulin dependent, hypertension, GERD, adrenal insufficiency with hypothyroidism, hyperlipidemia presents to the emergency department for left lower extremity swelling, redness, pain. Patient reports that she has had swelling of the left lower extremity for the past 3 weeks with some redness but they just became painful, tender, warm today. Patient with chronic lymphedema of bilateral lower extremities. Workup in the emergency department was significant for mildly elevated sodium 140, potassium 3.3 chloride 115 BNP 506 white count 4.2 hemoglobin 13.9 hematocrit 41.5, platelets 109. INR is 1.49, patient reports that she takes Coumadin 2 mg once daily. Ultrasound lower extremities to rule out DVT negative bilaterally, x-ray tib-fib unremarkable. ED provider elected to give patient vancomycin and cefepime, wishes to admit for further evaluation and management. When I saw the patient in the emergency room she was awake, alert, oriented x3. Vital signs stable, patient does not appear septic at this time. Will be admitted for further evaluation and management. Allergies ciprofloxacin [From Cipro] Allergy (Verified 02/11/17 06:42) Unknown rivaroxaban [From Xarelto] Allergy (Verified 02/11/17 06:42) Unknown piperacillin [From Zosyn] Adverse Reaction (Verified 04/28/19 22:34) Hives/Rash tazobactam [From Zosyn] Adverse Reaction (Verified 04/28/19 22:34) Hives/Rash Home Medications: Amlodipine [Norvasc*] 1 tab PO DAILY 05/25/20 Cholecalciferol (Vitamin D3) [Dialyvite Vitamin D3 Max] 1 tab PO SEECOM 05/25/20 Dexlansoprazole [Dexilant] 60 mg PO [id number] 05/25/20 Fenofibrate [Tricor*] 1 tab PO DAILY 05/25/20 Glipizide [Glipizide Xl] 1 tab PO M,W,F 05/25/20 Hydrocortisone [Cortef*] 2 tab PO BID 05/25/20 Levothyroxine [Synthroid*] 1 tab PO [id number] 05/25/20 Liothyronine Sodium [Cytomel] 1 tab PO M,W,F 05/25/20 Liothyronine Sodium [Cytomel] 2 tab PO T,TH,S 05/25/20 Losartan Potassium [Cozaar] 1 tab PO DAILY 05/25/20 Somatropin [Omnitrope] 3.3 mg SQ DAILY 05/25/20 Sotalol HCl [Sotalol] 1 tab PO BID 05/25/20 Warfarin Sodium [Coumadin*] 1 tab PO DAILY 05/25/20 clonazePAM [Klonopin*] 1 tab PO BID 05/25/20 Promethazine Tab [Phenergan] 12.5 mg PO Q12HP PRN #10 tab 05/26/20 - Past Medical/Surgical History Diabetic: Yes -: Diabetes mellitus type 2 non-insulin dependent -: History CVA 2012 -: HTN -: Anxiety -: History of pituitary gland removal -: GERD with history of GI bleed -: Hypothyroidism -: Chronic anti coagulation with Coumadin -: History atrial fibrillation -: Chronic steroids -: Adrenal insufficiency -: Hyperlipidemia -: hysterectomy -: bradley carpal tunnel sx -: L lumpectomy -: brain tumor removed- benign -: pituitary gland removal -: appendectomy Psychosocial/ Personal History: The patient is . She has 5 children. She does not work. - Family History Mother -: Heart disease, Hypertension Notes: of heart attack Father -: Heart disease Notes: of heart attack - Social History Smoking Status: Never smoker Alcohol use: No CD- Drugs: No Caffeine use: Yes Place of Residence: Home Review of Systems 10-point ROS is otherwise unremarkable Musculoskeletal: Leg Pain Integumentary: Lesions, As per HPI Physical Examination - Physical Exam General: Alert, In no apparent distress, Oriented x3 HEENT: Atraumatic, Normocephalic Neck: Supple Respiratory: Clear to auscultation bilaterally Cardiovascular: Normal S1 S2, Edema (Bilateral lower extremities with 2+ pitting edema to the level of the shins.) Capillary refill: <2 Seconds Gastrointestinal: Normal bowel sounds, No tenderness, No masses, No rebound, No guarding Musculoskeletal: No contractures, Erythema (Left lower extremity), Tenderness (Left lower extremity), Warmth (Left lower extremity) Integumentary: Tenderness/swelling (Left lower extremity), Erythema (Left lower extremity), Warmth (Left lower extremity) Neurological: Normal speech, Normal strength at 5/5 x4 extr, Normal tone, Sensation intact - Studies Laboratory Data (last 24 hrs) 07/29/20 21:46: PT 17.5 H, INR 1.49 07/29/20 21:46: WBC 4.2 L, Hgb 13.9, Hct 41.5, Plt Count 109 L 07/29/20 21:46: Sodium 148 H, Potassium 3.3 L, BUN 27 H, Creatinine 0.77, Glucose 188 H, Magnesium 1.9, Total Bilirubin 0.5, AST 11 L, ALT 16, Alkaline Phosphatase 73 Assessment and Plan - Plan Assessment Left lower extremity cellulitis Chronic systolic CHF Atrial fibrillation on chronic anticoagulation with Coumadin-subtherapeutic INR Diabetes mellitus type 2-insulin dependent Adrenal insufficiency with hypothyroidism and 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 Daily labs. Continue vancomycin/cefepime. Continue Coumadin for DVT prophylaxis. Negative for DVT bilaterally. Chronic systolic CHF: Continue with Lasix 20 mg IV daily, continue home medications including sotalol. Atrial fibrillation on chronic anticoagulation with Coumadin-subtherapeutic INR: Continue with sotalol, Coumadin 2 mg p.o. daily. May need additional dose of Coumadin for subtherapeutic INR. Diabetes mellitus type 2-insulin dependent: A.c. HS Accu-Cheks, sliding scale insulin therapy. 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 Hyperlipidemia: Continue atorvastatin. Hypertension: Continue home medications. Discharge Plan: Home Plan to discharge in: 72 Hours - Advance Directives Does patient have a Living Will: Yes Does patient have a Durable POA for Healthcare: Yes - Code Status/Comfort Care Code Status Assessed: Yes (DNR) Critical Care: No Time Spent Managing Pts Care (In Minutes): 55
[2020-07-29 23:21] LABS: Blood Morphology Comment NOTED (NOT SEEN); Platelet Estimate ADEQ; Polychromasia SLIGHT
[2020-07-29] MEDS ORDERED: ONDANSETRON 4 MG/2 ML VIAL IV PRN (23:21)
[2020-07-30] MEDS: ACETAMINOPHEN 500 MG TAB PO PRN ×2 (01:19→10:43)
[2020-07-30] MEDS: MELATONIN 5 MG TABLET PO PRN ×2 (01:20→20:28)
[2020-07-30] MEDS ORDERED: VANCOMYCIN 500 MG in NA CHLORIDE 0.9% 100 ML IVPB ONE (03:00)
[2020-07-30] MEDS ORDERED: NA CHLORIDE 0.9% 500 ML ONE (03:12)
[2020-07-30] MEDS ORDERED: NA CHLORIDE 0.9% 0 ML ONE (03:12)
[2020-07-30] MEDS ORDERED: NA CHLORIDE 0.9% 100 ML ONE (03:19)
[2020-07-30] MEDS ORDERED: VANCOMYCIN 500 MG/VIAL ONE (03:22)
[2020-07-30 06:02] LABS: Protime INR 2.02
[2020-07-30] MEDS: LEVOTHYROXINE SOD 0.125 MG TAB PO SCH (06:03)
[2020-07-30] MEDS: SOTALOL HCL 80 MG TAB PO SCH ×2 (06:03→18:00)
[2020-07-30 06:10] LABS: Absolute Lymphocytes (CBC) 0.3 K/uL (0.7-4.9); Basophils % 0.2 % (0-1.3); Lymphocytes % 3.4 % (15.3-44.8); RBC Red Blood Cell Count 3.51 M/uL (3.86-4.86)
[2020-07-30 06:27] LABS: Albumin 2.5 g/dL (3.4-5.0); Bilirubin Total 0.6 mg/dL (0.2-1.0); Magnesium 1.9 mg/dL (1.8-2.4); Protein, Total 5.1 g/dL (6.4-8.2)
[2020-07-30 06:28] LABS: Potassium 2.9 mmol/L (3.5-5.1)
[2020-07-30] MEDS: KCL 20 MEQ/100 mL IVPB 20 MEQ/100 ML BAG IV SCH ×3 (06:54→14:11)
[2020-07-30 07:04] LABS: Platelet Estimate DECR; Platelets, Giant FEW
[2020-07-30 07:05] LABS: Blood Morphology Comment NOT SEEN (NOT SEEN)
--- NOTE | 2020-07-30 07:35 | RAD REPORT ---
EXAM DESCRIPTION: Brandon Single View07/29/2020 9:47 pm CLINICAL HISTORY: Hypertension/swelling COMPARISON: May 2020 FINDINGS: The lungs appear clear of acute infiltrate. The heart is normal size IMPRESSION: No acute abnormalities displayed
--- NOTE | 2020-07-30 07:36 | RAD REPORT ---
EXAM DESCRIPTION: RADTib Fib Left07/29/2020 9:47 pm CLINICAL HISTORY: Left leg swelling FINDINGS: No fracture is seen. No bony lesion seen. Osteoporosis. Soft tissue swelling is present
[2020-07-30] MEDS: HYDROCORTISONE 10 MG TAB PO SCH ×2 (08:00→18:08)
[2020-07-30] MEDS ORDERED: FUROSEMIDE 20 MG/ 2ML VIAL IV SCH (09:00)
[2020-07-30] MEDS ORDERED: AMLODIPINE 10 MG TAB PO SCH ×2 (09:00→09:23)
[2020-07-30] MEDS ORDERED: LOSARTAN POTASSIUM 50 MG TABLET PO SCH ×2 (09:00→09:23)
[2020-07-30] MEDS ORDERED: VANCOMYCIN/NS 1 gm 1 GM/250 ML BAG IVPB SCH (09:00)
[2020-07-30] MEDS: INSULIN -REGULAR HUMAN 50 UNIT/0.5 ML ML SQ SCH ×4 (09:12→20:48)
[2020-07-30] MEDS: FENOFIBRATE 160 MG TAB PO SCH (09:15)
[2020-07-30] MEDS: VITAMIN D 5,000 UNIT CAP PO SCH (09:15)
--- NOTE | 2020-07-30 09:29 | P.PN ---
Subjective Date of Service: 07/30/20 Primary Care Provider: Dr. Reilly Chief Complaint: Left lower extremity cellulitis Subjective: Other (Patient feels better. Overall improved.) Physical Examination - Vital Signs Temperature: 97.3 F Blood Pressure: 112/53 Pulse: 79 Respirations: 20 Pulse Ox (%): 97 - Physical Exam General: Alert, In no apparent distress, Oriented x3, Cooperative HEENT: Atraumatic Neck: Supple Respiratory: Clear to auscultation bilaterally, Normal air movement Cardiovascular: Normal pulses, Regular rate/rhythm Gastrointestinal: No tenderness, No masses, No rebound, No guarding Integumentary: Other (Erythema to the left lower extremity improved. Mild edema noted.) Neurological: Normal speech, Normal strength at 5/5 x4 extr, Normal tone, Normal affect - Studies Laboratory Data (last 24 hrs) 07/29/20 21:46: PT 17.5 H, INR 1.49 07/29/20 21:46: WBC 4.2 L, Hgb 13.9, Hct 41.5, Plt Count 109 L 07/29/20 21:46: Sodium 148 H, Potassium 3.3 L, BUN 27 H, Creatinine 0.77, Glucose 188 H, Magnesium 1.9, Total Bilirubin 0.5, AST 11 L, ALT 16, Alkaline Phosphatase 73 Medications List Reviewed: Yes Assessment & Plan Discharge Plan: Home (with home health) Plan to discharge in: 48 Hours Physician Review Additional Text: Assessment Left lower extremity cellulitis Chronic systolic CHF Atrial fibrillation on chronic anticoagulation with Coumadin-subtherapeutic INR Diabetes mellitus type 2-insulin dependent Adrenal insufficiency with hypothyroidism 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 Improvement noted at this time. Will follow this closely. Continue home medications. Will get physical therapy to ambulate once improved. Anticipate improvement over the next 48 hr. Patient will likely require home health at discharge. Chronic systolic CHF: Hold Lasix at this time. Continue 1500 cc per day fluid restriction. Atrial fibrillation on chronic anticoagulation with Coumadin-subtherapeutic INR: Continue with sotalol. Patient also takes Coumadin. Continue with medication to maintain adequate anti coagulation therapy and rate control. Diabetes mellitus type 2-insulin dependent: Continue Accu-Cheks and sliding scale. 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 Hyperlipidemia: Continue medication. Hypertension: Continue medication. Will place parameters if blood pressure low. Hypernatremia: Will monitor this closely. Encourage oral intake. Time Spent Managing Pts Care (In Minutes): 55
[2020-07-30] MEDS ORDERED: HOME MED 1 EA UNK (Cholecalciferol (Vitamin D3) [Vitamin D3] 5,000 UNIT) PO SCH (09:30)
[2020-07-30] MEDS: clonazePAM 0.5 MG TAB PO PRN (10:43)
[2020-07-30] MEDS ORDERED: CEFEPIME 1 GM/10 ML SYR IV SCH (18:00)
[2020-07-30] MEDS: CEFEPIME/SWI 1gm 10 ML IV SCH (18:08)
[2020-07-30] MEDS: WARFARIN SODIUM 2 MG TAB PO SCH (18:08)
[2020-07-30 19:47] LABS: Urine Appearance CLEAR; Urine Blood TRACE (NEG); Urine Color DK YELLOW; Urine Glucose TRACE (NEG); Urine Protein 1+ (NEG); Urine Specific Gravity >=1.030 (1.005-1.030); Urine pH 5.5 (5.0-7.0)
[2020-07-30 19:50] LABS: Urine Bilirubin 1+ (NEG); Urine Microscopic Reflex ORDER UMIC
[2020-07-30 20:00] LABS: Urine Bacteria <20 /HPF (<20); Urine RBC <5 /HPF (NONE SEEN)
[2020-07-30] MEDS: HYDROCORTISONE PO SCH (20:23)
[2020-07-30] MEDS: ATORVASTATIN 40 MG TAB PO SCH (20:24)
[2020-07-30] MEDS ORDERED: SOTALOL HCL 160 MG PO SCH (21:00)
[2020-07-30] MEDS: MORPHINE 2 MG/ML SYR IV PRN (22:00)
[2020-07-31] MEDS: MORPHINE 2 MG/ML SYR IV PRN ×2 (02:29→06:37)
[2020-07-31] MEDS: LEVOTHYROXINE SOD 0.125 MG TAB PO SCH (05:35)
[2020-07-31] MEDS: SOTALOL HCL 80 MG TAB PO SCH ×2 (05:35→17:26)
[2020-07-31 05:38] LABS: Protime INR 2.18
[2020-07-31 05:40] LABS: Absolute Lymphocytes (CBC) 0.7 K/uL (0.7-4.9); Basophils % 0.4 % (0-1.3); Hematocrit 34.4 % (36.0-45.0); Lymphocytes % 7.9 % (15.3-44.8); MPV 10.1 fL (7.6-11.3); RBC Red Blood Cell Count 3.63 M/uL (3.86-4.86)
[2020-07-31 05:51] LABS: Albumin 2.3 g/dL (3.4-5.0); Bilirubin Total 0.6 mg/dL (0.2-1.0); Potassium 3.8 mmol/L (3.5-5.1); Protein, Total 5.3 g/dL (6.4-8.2)
[2020-07-31] MEDS ORDERED: LIOTHYRONINE SOD 5 MCG TAB PO SCH (06:30)
[2020-07-31] MEDS: INSULIN -REGULAR HUMAN 50 UNIT/0.5 ML ML SQ SCH ×4 (07:30→21:23)
--- NOTE | 2020-07-31 07:43 | P.PN ---
Subjective Date of Service: 07/31/20 Primary Care Provider: Dr. Reilly Chief Complaint: Left lower extremity cellulitis Subjective: Other (Pain controlled. Patient stable. Extremity still with erythema and mild swelling. Patient reports some constipation.) Physical Examination - Vital Signs Temperature: 97.1 F Blood Pressure: 138/65 Pulse: 89 Respirations: 16 Pulse Ox (%): 98 - Physical Exam General: Alert, In no apparent distress, Oriented x3, Cooperative HEENT: Atraumatic Neck: Supple Respiratory: Clear to auscultation bilaterally, Normal air movement Cardiovascular: Normal pulses, Regular rate/rhythm Gastrointestinal: Normal bowel sounds, No tenderness, No masses, No rebound, No guarding Integumentary: Other (Erythema, swelling still noted to the left lower extremity. Erythema improved. 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 Blood cultures positive but likely contaminant. Patient with thrombocytopenia likely related to infectious process. Will provide pain medication. Continue monitor closely. Will consult infectious disease to evaluate. Elevate leg when sitting or lying. May apply some ice to the area to help with swelling. Anticipate improvement over the next 48 hr. Chronic systolic CHF: Restart diuretic therapy. Continue 1500 cc per day fluid restriction. Atrial fibrillation on chronic anticoagulation with Coumadin-subtherapeutic INR: Continue with sotalol. Patient also takes Coumadin. INR therapeutic. Continue with medication to maintain adequate anti coagulation therapy and rate control. Diabetes mellitus type 2-insulin dependent: Continue Accu-Cheks and sliding scale. Will check A1c. Diabetes appears controlled. 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 Hyperlipidemia: Continue medication. Hypertension: Continue medication. Will place parameters if blood pressure low. Hypernatremia: Will monitor this closely. Encourage oral intake. This has improved with oral intake. Thrombocytopenia likely related to infectious process: Will monitor closely. Patient may require platelets if this continues to decline. Will check LDH, haptoglobin and peripheral smear. Will monitor for bleeding. Time Spent Managing Pts Care (In Minutes): 55
[2020-07-31] MEDS: HYDROCORTISONE 10 MG TAB PO SCH ×2 (08:45→17:25)
[2020-07-31] MEDS: VITAMIN D 5,000 UNIT CAP PO SCH (08:46)
[2020-07-31] MEDS: FENOFIBRATE 160 MG TAB PO SCH (08:46)
[2020-07-31] MEDS: SOMATROPIN SQ SCH (08:47)
[2020-07-31] MEDS: METHSCOPOLAMINE BROMIDE 5 MG PO SCH (08:47)
[2020-07-31] MEDS: HYDROCORTISONE PO SCH ×2 (08:47→21:00)
[2020-07-31] MEDS: CRANBERRY FRUIT EXTRACT PO SCH (09:00)
[2020-07-31] MEDS ORDERED: POTASSIUM CL SA 10 MEQ TAB PO ONE (09:00)
[2020-07-31 09:08] LABS: Blood Morphology Comment NOT SEEN (NOT SEEN); Platelet Estimate ADEQ
[2020-07-31] MEDS: LOSARTAN POTASSIUM 50 MG TABLET PO SCH ×2 (10:47→21:23)
[2020-07-31] MEDS: LIOTHYRONINE SOD 5 MCG TAB PO SCH (10:56)
[2020-07-31] MEDS: ACETAMINOPHEN 500 MG TAB PO PRN (11:50)
[2020-07-31] MEDS: clonazePAM 0.5 MG TAB PO PRN (14:03)
[2020-07-31] MEDS ORDERED: VANCOMYCIN 1.5 GM in NA CHLORIDE 0.9% 500 ML IVPB SCH (16:00)
[2020-07-31] MEDS: CEFEPIME/SWI 1gm 10 ML IV SCH (17:25)
[2020-07-31] MEDS: WARFARIN SODIUM 2 MG TAB PO SCH (17:26)
[2020-07-31] MEDS ORDERED: HYDROCODONE/APAP 7.5/325 MG TAB PO PRN (17:44)
[2020-07-31] MEDS: HYDROCODONE/APAP 7.5/325 MG TAB PO PRN (18:31)
[2020-07-31] MEDS: LACTOBACILLUS/ACIDOPHILUS TAB PO SCH (21:22)
[2020-07-31] MEDS: ATORVASTATIN 40 MG TAB PO SCH (21:22)
[2020-07-31] MEDS: MELATONIN 5 MG TABLET PO PRN (21:23)
[2020-08-01] MEDS: clonazePAM 0.5 MG TAB PO PRN (03:17)
[2020-08-01] MEDS: LEVOTHYROXINE SOD 0.125 MG TAB PO SCH (05:14)
[2020-08-01] MEDS: SOTALOL HCL 80 MG TAB PO SCH ×2 (05:14→16:31)
[2020-08-01] MEDS: LIOTHYRONINE SOD 5 MCG TAB PO SCH (05:15)
[2020-08-01 05:49] LABS: Absolute Lymphocytes (CBC) 0.5 K/uL (0.7-4.9); Basophils % 0.1 % (0-1.3); Hematocrit 31.2 % (36.0-45.0); Lymphocytes % 7.2 % (15.3-44.8); MPV 10.9 fL (7.6-11.3); RBC Red Blood Cell Count 3.26 M/uL (3.86-4.86)
[2020-08-01 06:12] LABS: Albumin 1.9 g/dL (3.4-5.0); Bilirubin Total 0.5 mg/dL (0.2-1.0); Magnesium 2.2 mg/dL (1.8-2.4); Potassium 3.9 mmol/L (3.5-5.1); Protein, Total 5.1 g/dL (6.4-8.2)
[2020-08-01 06:26] LABS: Protime INR 1.65
[2020-08-01] MEDS: INSULIN -REGULAR HUMAN 50 UNIT/0.5 ML ML SQ SCH ×4 (07:30→21:59)
[2020-08-01] MEDS: HYDROCORTISONE PO SCH ×2 (09:00→21:00)
[2020-08-01] MEDS: CRANBERRY FRUIT EXTRACT PO SCH (09:00)
[2020-08-01] MEDS: METHSCOPOLAMINE BROMIDE 5 MG PO SCH (09:00)
[2020-08-01] MEDS ORDERED: POTASSIUM CL SA 10 MEQ TAB PO ONE (09:00)
[2020-08-01] MEDS: LOSARTAN POTASSIUM 50 MG TABLET PO SCH ×2 (09:30→21:59)
[2020-08-01] MEDS: DOCUSATE NA 100 MG CAP PO SCH (09:30)
[2020-08-01] MEDS: HYDROCORTISONE 10 MG TAB PO SCH ×2 (09:30→16:31)
[2020-08-01] MEDS: LACTOBACILLUS/ACIDOPHILUS TAB PO SCH ×2 (09:30→21:59)
[2020-08-01] MEDS: VITAMIN D 5,000 UNIT CAP PO SCH (09:30)
[2020-08-01] MEDS: HYDROCODONE/APAP 7.5/325 MG TAB PO PRN ×2 (09:31→16:31)
[2020-08-01] MEDS: FENOFIBRATE 160 MG TAB PO SCH (09:31)
[2020-08-01] MEDS: SOMATROPIN SQ SCH (09:32)
--- NOTE | 2020-08-01 10:41 | P.PN ---
Subjective Date of Service: 08/01/20 Primary Care Provider: Dr. Reilly Chief Complaint: Left lower extremity cellulitis Subjective: Improving, Doing well Physical Examination - Vital Signs Temperature: 98.7 F Blood Pressure: 143/69 Pulse: 85 Respirations: 18 Pulse Ox (%): 97 - Physical Exam General: Alert, Cooperative HEENT: Atraumatic Neck: Supple Respiratory: Clear to auscultation bilaterally, Normal air movement, Other (Patient reported some rib cage pain on the right side. pain noted with palpation) Cardiovascular: Normal pulses, Regular rate/rhythm Gastrointestinal: Normal bowel sounds, No tenderness, No masses, No rebound, No guarding Musculoskeletal: Other (Erythema, swelling to the left lower extremity improved. Warmth still noted.) Neurological: Normal speech, Normal strength at 5/5 x4 extr, Normal tone, Normal affect - Studies Microbiology Data (last 24 hrs): 07/29/20 21:46 Blood - Blood Aerobic Blood Culture - Final B Strep Non-A,B 07/29/20 21:46 Blood - Blood Blood Culture Gram Stain - Final 07/29/20 21:46 Blood - Blood Anaerobic Blood Culture - Final B Strep Non-A,B 07/29/20 21:46 Blood - Blood Gram Stain - Final 07/29/20 22:00 Blood - Blood Aerobic Blood Culture - Final B Strep Non-A,B 07/29/20 22:00 Blood - Blood Blood Culture Gram Stain - Final 07/29/20 22:00 Blood - Blood Anaerobic Blood Culture - Final B Strep Non-A,B 07/29/20 22:00 Blood - Blood Gram Stain - Final Medications List Reviewed: Yes Assessment & Plan Discharge Plan: Home Plan to discharge in: 24 Hours Physician Review Additional Text: Assessment Left lower extremity cellulitis with bacteremia, blood culture positive for B, strep non a/b Chronic systolic CHF Atrial fibrillation on chronic anticoagulation with Coumadin-subtherapeutic INR Diabetes mellitus type 2-insulin dependent Adrenal insufficiency with hypothyroidism 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 Blood culture results reviewed. Positive for B strep non a/b. Infectious disease consulted for recommendation. Sensitive to penicillin, quinolone and vancomycin. Patient has allergy to Zosyn and Cipro. Await recommendations by infectious disease. Patient will likely require a total of 14 days of treatment. Patient overall improved. Possible discharge as early as tomorrow if improved but await recommendations by infectious disease. Continue elevate when sitting or lying. I will turn the service over to the hospitalist team tomorrow. I will go plan of care with him. Chronic systolic CHF: Continue diuretic therapy. Continue 1500 cc per day fluid restriction. Atrial fibrillation on chronic anticoagulation with Coumadin-subtherapeutic INR: Continue with sotalol. Patient also takes Coumadin. Monitor INR. Continue with medication to maintain adequate anti coagulation therapy and rate control. Diabetes mellitus type 2-insulin dependent: A1c 6.4. Continue Accu-Cheks and sliding scale. Will need to verify home medication. 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 Hyperlipidemia: Continue medication. Hypertension: Continue medication. Parameters in place if blood pressure low. Hypernatremia: Will monitor this closely. Encourage oral-water intake. Thrombocytopenia likely related to infectious process: Will monitor closely. Patient may require platelets if this continues to decline. Likely related to cellulitis/bacteremia. Will monitor closely. Time Spent Managing Pts Care (In Minutes): 55
--- NOTE | 2020-08-01 10:45 | RAD REPORT ---
EXAM DESCRIPTION: Brandon Single View08/01/2020 10:28 am CLINICAL HISTORY: Chest pain COMPARISON: July 29, 2020 FINDINGS: The lungs appear clear of acute infiltrate. The heart is normal size. No gross rib fractu re seen on this limited exam IMPRESSION: No acute abnormalities displayed
[2020-08-01 11:08] LABS: Blood Morphology Comment NOT SEEN (NOT SEEN); Platelet Estimate DECR; White Blood Cell Scan OK (OK)
[2020-08-01] MEDS: VANCOMYCIN 1.5 GM in NA CHLORIDE 0.9% 500 ML IVPB SCH (16:30)
[2020-08-01] MEDS: WARFARIN SODIUM 2 MG TAB PO SCH (16:32)
[2020-08-01] MEDS: ATORVASTATIN 40 MG TAB PO SCH (21:59)
[2020-08-01] MEDS: MELATONIN 5 MG TABLET PO PRN (22:41)
[2020-08-02] MEDS: HYDROCODONE/APAP 7.5/325 MG TAB PO PRN ×2 (04:44→20:46)
[2020-08-02] MEDS: LEVOTHYROXINE SOD 0.125 MG TAB PO SCH (04:54)
[2020-08-02] MEDS: LIOTHYRONINE SOD 5 MCG TAB PO SCH (04:54)
[2020-08-02 06:06] LABS: Absolute Lymphocytes (CBC) 0.6 K/uL (0.7-4.9); Basophils % 0.3 % (0-1.3); Hematocrit 30.5 % (36.0-45.0); Lymphocytes % 12.1 % (15.3-44.8); MPV 10.3 fL (7.6-11.3); RBC Red Blood Cell Count 3.24 M/uL (3.86-4.86)
[2020-08-02] MEDS: SOTALOL HCL 80 MG TAB PO SCH ×2 (06:07→17:44)
[2020-08-02 06:31] LABS: BUN Blood Urea Nitrogen 22 mg/dL (7-18); Bicarbonate 26 mmol/L (21-32); Glucose Level 134 mg/dL (74-106); Magnesium 2.2 mg/dL (1.8-2.4); Potassium 3.6 mmol/L (3.5-5.1); Sodium Level 150 mmol/L (136-145)
[2020-08-02] MEDS: INSULIN -REGULAR HUMAN 50 UNIT/0.5 ML ML SQ SCH ×4 (07:30→20:46)
[2020-08-02] MEDS: HYDROCORTISONE 10 MG TAB PO SCH ×2 (08:45→17:09)
[2020-08-02] MEDS: VITAMIN D 5,000 UNIT CAP PO SCH (08:45)
[2020-08-02] MEDS: LACTOBACILLUS/ACIDOPHILUS TAB PO SCH ×2 (08:45→20:45)
[2020-08-02] MEDS: LOSARTAN POTASSIUM 50 MG TABLET PO SCH ×2 (08:45→20:45)
[2020-08-02] MEDS: FENOFIBRATE 160 MG TAB PO SCH (08:46)
[2020-08-02] MEDS: DOCUSATE NA 100 MG CAP PO SCH (08:46)
[2020-08-02] MEDS: CRANBERRY FRUIT EXTRACT PO SCH (08:46)
[2020-08-02] MEDS: METHSCOPOLAMINE BROMIDE 5 MG PO SCH (08:47)
[2020-08-02] MEDS: SOMATROPIN SQ SCH (08:50)
[2020-08-02] MEDS ORDERED: POTASSIUM CL SA 10 MEQ TAB PO ONE (09:00)
[2020-08-02] MEDS ORDERED: HYDROCORTISONE 10 MG TAB PO SCH (09:00)
--- NOTE | 2020-08-02 09:36 | P.PN ---
Subjective Date of Service: 08/02/20 (Hospitalist) Primary Care Provider: Dr. Reilly Chief Complaint: Left lower extremity cellulitis Subjective: Improving (Patient is doing better regarding her left lower leg cellulitis she complains of this chronic right upper quadrant pain) Review of Systems General: Weakness Gastrointestinal: As per HPI Physical Examination - Vital Signs Temperature: 97.0 F Blood Pressure: 126/60 Pulse: 69 Respirations: 18 Pulse Ox (%): 95 - Physical Exam General: Alert, In no apparent distress, Oriented x3 Neck: Supple Respiratory: Clear to auscultation bilaterally Cardiovascular: No edema, Normal S1 S2 Gastrointestinal: Tenderness (Tenderness in the right upper quadrant) Musculoskeletal: No clubbing, No swelling Integumentary: Other (Left lower extremity cellulitis is improving swelling is decreased) - Studies Microbiology Data (last 24 hrs): 07/29/20 21:46 Blood - Blood Aerobic Blood Culture - Final B Strep Non-A,B 07/29/20 21:46 Blood - Blood Blood Culture Gram Stain - Final 07/29/20 21:46 Blood - Blood Anaerobic Blood Culture - Final B Strep Non-A,B 07/29/20 21:46 Blood - Blood Gram Stain - Final 07/29/20 22:00 Blood - Blood Aerobic Blood Culture - Final B Strep Non-A,B 07/29/20 22:00 Blood - Blood Blood Culture Gram Stain - Final 07/29/20 22:00 Blood - Blood Anaerobic Blood Culture - Final B Strep Non-A,B 07/29/20 22:00 Blood - Blood Gram Stain - Final Medications List Reviewed: Yes Assessment & Plan - Problems (Diagnosis) (1) Cellulitis of left lower extremity Current Visit: Yes Status: Acute Plan: Patient's cellulitis is improving white count is normal will repeat blood cultures she has beta-hemolytic strep non a non be should be sensitive to cephalosporins I have also added p.o.Cefdnir. Patient is hypernatremic she recently had some diarrhea start on IV fluids labs reviewed history of adrenal insufficiency (2) Right upper quadrant abdominal pain Current Visit: Yes Status: Acute Plan: Patient had this chronic persistent right upper quadrant pain often notices at night was admitted day here was found to have a gallbladder sludge seen by Dr. Rushing the Re console to patient has AFib on warfarin and sotalol
[2020-08-02] MEDS: TRAMADOL HCL 50 MG TAB PO PRN (09:59)
[2020-08-02] MEDS: D5W 1,000 ML IV SCH ×2 (10:26→23:20)
--- NOTE | 2020-08-02 15:10 | CON ---
Date of Consultation: 08/02/2020 Reason For Consult: Recurrent right upper quadrant abdominal pain. History Of Present Illness: This is a case of an 80-year-old patient known by us in the past due to history of gallbladder disease due to medical issues that has not been addressed yet. She is also on anticoagulation. Patient came here with cellulitis of the left lower extremity being treated as we speak and she stated that when she eat she has some episodes the right upper quadrant pain. Right no w, as we speak, she is eating fried potato tots and she can goldman steak. She was advised the importanc e as we discussed with her the importance of low-fat diet. She states that she has been having troub le for few weeks already and then it was so tender that she came to the ER for that. Right now, and she has been treated and she started to feel better from her leg. Past Medical History: Venous stasis disease, diabetes, CVA, hypertension, anxiety, GERD, hypothyroid ism, atrial fibrillation, chronic use of steroids, renal insufficiency, hyperlipidemia. Past Surgical History: Include appendectomy, pituitary gland removal, brain tumor removed, breast ammon mpectomy, carpal tunnel, hysterectomy. Family History: Include heart disease. She does not smoke. She does not drink alcohol. Review of Systems: See H and P. 10 points otherwise unremarkable. Physical Examination: General: The patient is awake, alert. HEENT: Pupils anicteric. Neck: Supple. Chest: Clear. Abdomen: Soft and depressible. No guarding or rebound. No peritoneal signs. No Ricks signs. Extremities: Good capillary refill. Laboratory Data: Blood work shows a WBC count of 5.2, INR of 1.6. We have previous tests on her jey t shows a biliary sludge. Assessment: 80-year-old patient with history of gallbladder disease and biliary colic. The patient advised the importance of low-fat diet, but as I see right now is not happening so eventually she gabriela l be going to have to remove her gallbladder. Right now she is dealing with an infection in the left lower extremity might not be the best time to have this done, although she was fully discussed the o ptions of laparoscopic possible open cholecystectomy, which once again including infection, bleeding, damage to adjacent structures as complication, choledocholithiasis, bile leak, pancreatitis, myocard ial infarction, and even . If she wish to have surgery during this admission and medically the leg get better then she is going to have to stop the anticoagulation and also obtain cardiac clearanc e. If that is not the case, then she is going to have to go home and continue the antibiotics for he r leg, improve that condition, but make an appointment with my office to get the cholecystectomy done . But at the same time, I have stressed out the importance of a low-fat diet. PINO/AZIZA Voice ID: [id number] Report ID: [id number]
[2020-08-02] MEDS: clonazePAM 0.5 MG TAB PO PRN (15:32)
[2020-08-02] MEDS: VANCOMYCIN 1.5 GM in NA CHLORIDE 0.9% 500 ML IVPB SCH (16:13)
[2020-08-02] MEDS: WARFARIN SODIUM 2 MG TAB PO SCH (17:09)
[2020-08-02] MEDS: CEFDINIR 300 MG CAP PO SCH (20:45)
[2020-08-02] MEDS: ATORVASTATIN 40 MG TAB PO SCH (20:45)
[2020-08-03] MEDS: clonazePAM 0.5 MG TAB PO PRN ×2 (01:21→20:37)
[2020-08-03] MEDS: D5W 1,000 ML IV SCH ×2 (03:31→09:59)
[2020-08-03] MEDS: SOTALOL HCL 80 MG TAB PO SCH ×2 (05:42→18:00)
[2020-08-03] MEDS: LEVOTHYROXINE SOD 0.125 MG TAB PO SCH (05:42)
[2020-08-03 06:11] LABS: Absolute Lymphocytes (CBC) 0.9 K/uL (0.7-4.9); Basophils % 0.4 % (0-1.3); Hematocrit 32.6 % (36.0-45.0); Lymphocytes % 19.7 % (15.3-44.8); MPV 11.1 fL (7.6-11.3); RBC Red Blood Cell Count 3.41 M/uL (3.86-4.86)
[2020-08-03 06:15] LABS: BUN Blood Urea Nitrogen 21 mg/dL (7-18); Bicarbonate 25 mmol/L (21-32); Glucose Level 188 mg/dL (74-106); Magnesium 2.2 mg/dL (1.8-2.4); Potassium 4.2 mmol/L (3.5-5.1); Sodium Level 146 mmol/L (136-145)
[2020-08-03] MEDS: INSULIN -REGULAR HUMAN 50 UNIT/0.5 ML ML SQ SCH ×4 (08:59→20:34)
[2020-08-03] MEDS: SOMATROPIN SQ SCH (09:00)
[2020-08-03] MEDS: METHSCOPOLAMINE BROMIDE 5 MG PO SCH (09:00)
[2020-08-03] MEDS: CRANBERRY FRUIT EXTRACT PO SCH (09:00)
--- NOTE | 2020-08-03 10:00 | P.PN ---
Subjective Date of Service: 08/03/20 Primary Care Provider: Dr. Reilly Chief Complaint: Left lower extremity cellulitis Subjective: Improving (Patient is doing much better redness is decreased now ambulating) Review of Systems General: Weakness Gastrointestinal: Abdominal Pain (Minimal abdominal discomfort) Physical Examination - Vital Signs Temperature: 97 F Blood Pressure: 174/74 Pulse: 69 Respirations: 18 Pulse Ox (%): 99 - Physical Exam General: Alert, In no apparent distress, Oriented x3 Respiratory: Clear to auscultation bilaterally, Normal air movement Cardiovascular: No edema, Regular rate/rhythm Gastrointestinal: Normal bowel sounds, Soft and benign, Non-distended, No tenderness - Studies Medications List Reviewed: Yes Assessment & Plan - Problems (Diagnosis) (1) Cellulitis of left lower extremity Current Visit: Yes Status: Acute Plan: Patient's cellulitis is improving will repeat blood cultures are negative change analyst to p.o. antibiotics plan for discharge patient to follow-up with Dr. Rushing in his wound clinic hypernatremia is improving (2) Right upper quadrant abdominal pain Current Visit: Yes Status: Acute Plan: Patient has chronic cholecystitis discuss with Dr. Rushing plan to do surgery next week
[2020-08-03] MEDS: HYDROCORTISONE 10 MG TAB PO SCH ×2 (10:59→17:15)
[2020-08-03] MEDS: CEFDINIR 300 MG CAP PO SCH ×2 (11:00→20:32)
[2020-08-03] MEDS: LOSARTAN POTASSIUM 50 MG TABLET PO SCH ×2 (11:00→20:32)
[2020-08-03] MEDS: DOCUSATE NA 100 MG CAP PO SCH (11:00)
[2020-08-03] MEDS: LACTOBACILLUS/ACIDOPHILUS TAB PO SCH ×2 (11:00→20:33)
[2020-08-03] MEDS: VITAMIN D 5,000 UNIT CAP PO SCH (11:01)
[2020-08-03] MEDS: FENOFIBRATE 160 MG TAB PO SCH (11:01)
[2020-08-03 14:02] LABS: Protime INR 2.66
[2020-08-03] MEDS: VANCOMYCIN 1.75 GM in NA CHLORIDE 0.9% 500 ML IVPB SCH (17:00)
[2020-08-03] MEDS: WARFARIN SODIUM 2 MG TAB PO SCH (17:15)
[2020-08-03] MEDS: ATORVASTATIN 40 MG TAB PO SCH (20:33)
[2020-08-03] MEDS: HYDROCODONE/APAP 7.5/325 MG TAB PO PRN (23:31)
[2020-08-04 06:07] LABS: Basophils % 0.7 % (0-1.3); Lymphocytes % 21.5 % (15.3-44.8); MPV 9.8 fL (7.6-11.3); RBC Red Blood Cell Count 3.43 M/uL (3.86-4.86)
[2020-08-04 06:14] LABS: BUN Blood Urea Nitrogen 19 mg/dL (7-18); Bicarbonate 28 mmol/L (21-32); Glucose Level 123 mg/dL (74-106); Potassium 3.6 mmol/L (3.5-5.1); Sodium Level 147 mmol/L (136-145)
[2020-08-04] MEDS: LIOTHYRONINE SOD 5 MCG TAB PO SCH (06:14)
[2020-08-04] MEDS: SOTALOL HCL 80 MG TAB PO SCH ×2 (06:14→17:17)
[2020-08-04] MEDS: LEVOTHYROXINE SOD 0.125 MG TAB PO SCH (06:14)
[2020-08-04] MEDS: HYDROCODONE/APAP 7.5/325 MG TAB PO PRN ×3 (06:19→21:18)
[2020-08-04] MEDS: INSULIN -REGULAR HUMAN 50 UNIT/0.5 ML ML SQ SCH ×4 (07:30→20:12)
[2020-08-04] MEDS ORDERED: POTASSIUM CL SA 10 MEQ TAB PO ONE (09:00)
[2020-08-04] MEDS: METHSCOPOLAMINE BROMIDE 5 MG PO SCH (09:00)
[2020-08-04] MEDS: CRANBERRY FRUIT EXTRACT PO SCH (09:00)
[2020-08-04] MEDS: HYDROCORTISONE 10 MG TAB PO SCH ×2 (09:02→17:19)
[2020-08-04] MEDS: LACTOBACILLUS/ACIDOPHILUS TAB PO SCH ×2 (09:03→20:11)
[2020-08-04] MEDS: CEFDINIR 300 MG CAP PO SCH ×2 (09:03→20:11)
[2020-08-04] MEDS: LOSARTAN POTASSIUM 50 MG TABLET PO SCH ×2 (09:03→20:11)
[2020-08-04] MEDS: SOMATROPIN SQ SCH (09:04)
[2020-08-04] MEDS: VITAMIN D 5,000 UNIT CAP PO SCH (09:04)
[2020-08-04] MEDS: DOCUSATE NA 100 MG CAP PO SCH (09:04)
[2020-08-04] MEDS: FENOFIBRATE 160 MG TAB PO SCH (09:04)
--- NOTE | 2020-08-04 12:28 | PN ---
Date of Progress Note: 08/04/2020 Reason For Service: Cholelithiasis. Subjective: The patient is doing better. She is being treated currently for the left lower extremit y cellulitis, which is improving. Abdomen is benign at this moment. No shortness of breath. No dwayne st pain. No fever and abdomen is benign. Extremities, left lower extremity cellulitis. She has his tory of pitting edema over that region. Plan: If they want some help with the followup, [facility] Will go there every Tuesday morning. The patient advised. For the gallbladder, once resolved the area of the gallbladder, we are going to check once again the benefit and risk of having cholecystec mariusz done. She understands that part too. PINO/AZIZA Voice ID: [id number] Report ID: [id number]
--- NOTE | 2020-08-04 15:19 | CON ---
History Of Present Illness: This is an 80-year-old female. I was consulted for left lower extremity cellulitis. The patient has significant history of congestive heart failure, atrial fibrillation, c hronic anticoagulation therapy with Coumadin, diabetes mellitus type 2 with diabetic neuropathy, hype rtension, GERD, hypothyroidism, hyperlipidemia, coming in with left leg swelling and tenderness, also has anemia and thrombocytopenia. Blood cultures were growing B strep non A/B in her blood. The pat ient is currently being treated with antibiotic includes cefdinir and vancomycin as the patient has m ultiple antibiotic allergies. Past Medical History: As per HPI. Social History: Nonsmoker, nondrinker. Family History: Noncontributory. Medications: Vancomycin and cefdinir. See MAR for other medications. Allergies: INCLUDE CIPRO, PIPERACILLIN AND TAZOBACTAM. Review of Systems: A 10-point review was performed. Physical Examination: General: This is an 80-year-old female, lying in bed, not in any acute cardiopulmonary distress. Vital Signs: Temperature 97, pulse 61, respirations 16, blood pressure 155/70. HEENT: Unremarkable. Neck: Supple. Lungs: Basal crackles. Heart: S1, S2. Irregularly irregular. Abdomen: Soft, nontender. Bowel sounds present. Extremities: 2+ edema with erythematous changes and black patches, most likely secondary to Coumadin toxicity noted. Laboratory Data: Shows WBC 4.6, hemoglobin 10.9, platelets are 120. Chemistry shows sodium 147, pot assium 3.6, chloride 113, bicarb 28, BUN 19, creatinine 0.5, glucose 123. Micro data; blood cultures positive for B strep non A and B, sensitive to Levaquin, vancomycin, and penicillin. Assessment And Plan: Bacteremia secondary to B strep non A/B, the patient with left lower extremity cellulitis, diabetes mellitus and diabetic neuropathy, congestive heart failure, anemia, and thromboc ytopenia. Continue current treatment with vancomycin for at least 2 weeks. We will follow the patie nt closely. Thank you for consult. NF/MODL Voice ID: [id number] Report ID: [id number]
[2020-08-04] MEDS: clonazePAM 0.5 MG TAB PO PRN (16:01)
[2020-08-04] MEDS: VANCOMYCIN 1.75 GM in NA CHLORIDE 0.9% 500 ML IVPB SCH (16:02)
[2020-08-04] MEDS: D5W 1,000 ML IV SCH (16:04)
[2020-08-04] MEDS: WARFARIN SODIUM 2 MG TAB PO SCH (17:18)
[2020-08-04] MEDS: ATORVASTATIN 40 MG TAB PO SCH (20:11)
[2020-08-05] MEDS: D5W 1,000 ML IV SCH ×3 (01:59→21:59)
[2020-08-05 04:05] LABS: Protime INR 3.28
[2020-08-05 04:20] LABS: BUN Blood Urea Nitrogen 18 mg/dL (7-18); Bicarbonate 28 mmol/L (21-32); Glucose Level 208 mg/dL (74-106); Potassium 3.6 mmol/L (3.5-5.1); Sodium Level 144 mmol/L (136-145)
[2020-08-05] MEDS: LIOTHYRONINE SOD 5 MCG TAB PO SCH (05:38)
[2020-08-05] MEDS: HYDROCODONE/APAP 7.5/325 MG TAB PO PRN ×3 (05:38→22:37)
[2020-08-05] MEDS: LEVOTHYROXINE SOD 0.125 MG TAB PO SCH (05:38)
[2020-08-05] MEDS: SOTALOL HCL 80 MG TAB PO SCH ×2 (05:38→16:39)
[2020-08-05] MEDS: INSULIN -REGULAR HUMAN 50 UNIT/0.5 ML ML SQ SCH ×4 (07:30→22:29)
[2020-08-05] MEDS ORDERED: POTASSIUM CL SA 10 MEQ TAB PO ONE (09:00)
[2020-08-05] MEDS: METHSCOPOLAMINE BROMIDE 5 MG PO SCH (09:00)
[2020-08-05] MEDS: CRANBERRY FRUIT EXTRACT PO SCH (09:00)
[2020-08-05] MEDS: DOCUSATE NA 100 MG CAP PO SCH (09:14)
[2020-08-05] MEDS: CEFDINIR 300 MG CAP PO SCH ×2 (09:14→22:29)
[2020-08-05] MEDS: VITAMIN D 5,000 UNIT CAP PO SCH (09:14)
[2020-08-05] MEDS: LOSARTAN POTASSIUM 50 MG TABLET PO SCH ×2 (09:14→22:29)
[2020-08-05] MEDS: LACTOBACILLUS/ACIDOPHILUS TAB PO SCH ×2 (09:14→22:29)
[2020-08-05] MEDS: FENOFIBRATE 160 MG TAB PO SCH (09:16)
[2020-08-05] MEDS: SOMATROPIN SQ SCH (09:17)
[2020-08-05] MEDS: TRAMADOL HCL 50 MG TAB PO PRN ×2 (09:22→16:38)
[2020-08-05] MEDS: HYDROCORTISONE 10 MG TAB PO SCH ×2 (10:05→16:39)
[2020-08-05] MEDS: VANCOMYCIN 1.75 GM in NA CHLORIDE 0.9% 500 ML IVPB SCH (16:23)
[2020-08-05] MEDS: ATORVASTATIN 40 MG TAB PO SCH (22:32)
[2020-08-06] MEDS: TRAMADOL HCL 50 MG TAB PO PRN (04:29)
[2020-08-06 05:01] LABS: BUN Blood Urea Nitrogen 22 mg/dL (7-18); Bicarbonate 28 mmol/L (21-32); Glucose Level 130 mg/dL (74-106); Potassium 3.6 mmol/L (3.5-5.1); Sodium Level 144 mmol/L (136-145)
[2020-08-06] MEDS: LEVOTHYROXINE SOD 0.125 MG TAB PO SCH (06:01)
[2020-08-06] MEDS: SOTALOL HCL 80 MG TAB PO SCH ×2 (06:01→18:04)
[2020-08-06] MEDS: LIOTHYRONINE SOD 5 MCG TAB PO SCH (06:02)
[2020-08-06] MEDS: INSULIN -REGULAR HUMAN 50 UNIT/0.5 ML ML SQ SCH ×4 (07:30→20:35)
[2020-08-06] MEDS: CRANBERRY FRUIT EXTRACT PO SCH (09:00)
[2020-08-06] MEDS: METHSCOPOLAMINE BROMIDE 5 MG PO SCH (09:00)
[2020-08-06] MEDS ORDERED: CHOLECALCIFEROL 5000 UNIT PO SCH (09:00)
[2020-08-06] MEDS ORDERED: POTASSIUM 25 MEQ EFFERV TAB PO ONE (09:00)
[2020-08-06] MEDS: LACTOBACILLUS/ACIDOPHILUS TAB PO SCH ×2 (09:17→20:30)
[2020-08-06] MEDS: DOCUSATE NA 100 MG CAP PO SCH (09:17)
[2020-08-06] MEDS: HYDROCORTISONE 10 MG TAB PO SCH ×2 (09:17→16:50)
[2020-08-06] MEDS: CEFDINIR 300 MG CAP PO SCH ×2 (09:17→20:30)
[2020-08-06] MEDS: LOSARTAN POTASSIUM 50 MG TABLET PO SCH ×2 (09:17→20:30)
[2020-08-06] MEDS: HYDROCODONE/APAP 7.5/325 MG TAB PO PRN ×2 (09:18→20:31)
[2020-08-06] MEDS: VITAMIN D 5,000 UNIT CAP PO SCH (09:18)
[2020-08-06] MEDS: SOMATROPIN SQ SCH (09:18)
[2020-08-06] MEDS: FENOFIBRATE 160 MG TAB PO SCH (09:18)
--- NOTE | 2020-08-06 09:53 | P.PN ---
Subjective Date of Service: 08/04/20 Subjective: No new changes, No C/O voiced, Improving Patient's wound was still very erythematous. There is a significant amount of drainage. Infectious Disease is recommending IV antibiotic at discharge. Will reassess in tomorrow and if there is improvement then we may be able to talk with ID about oral antibiotics. Otherwise, will need a PICC line to arrange for IV antibiotic. Review of Systems 10-point ROS is otherwise unremarkable Physical Examination - Vital Signs Temperature: 97.6 F Blood Pressure: 189/94 Pulse: 83 Respirations: 18 Pulse Ox (%): 96 - Physical Exam General: Alert, In no apparent distress, Oriented x3 Respiratory: Clear to auscultation bilaterally, Normal air movement Cardiovascular: Regular rate/rhythm, Normal S1 S2 Gastrointestinal: Normal bowel sounds, Soft and benign, Non-distended, No tenderness Musculoskeletal: Erythema, Tenderness, Warmth Integumentary: Tenderness/swelling, Erythema, Warmth Neurological: Sensation intact, Cranial nerves 3-12 intact, Abnormal gait, Abnormal strength - Studies Medications List Reviewed: Yes Assessment & Plan - Problems (Diagnosis) (1) Cellulitis of left lower extremity Current Visit: Yes Status: Acute (2) Bacteremia due to Gram-negative bacteria Current Visit: No Status: Acute (3) Chronic anemia Onset Date: 02/09/16 Current Visit: No Status: Acute (4) Chronic atrial fibrillation Current Visit: No Status: Acute (5) 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 Current Visit: No Status: Acute (6) Dermatitis Current Visit: No Status: Acute (7) Hypokalemia Onset Date: 03/13/15 Current Visit: No Status: Acute (8) Hypomagnesemia Onset Date: 03/13/15 Current Visit: No Status: Acute (9) Thrombocytopenia Onset Date: 01/20/16 Current Visit: No Status: Acute (10) Diabetes mellitus type II, non insulin dependent Onset Date: 01/20/16 Current Visit: No Status: Chronic (11) Hyperlipidemia Onset Date: 01/20/16 Current Visit: No Status: Chronic Qualifiers: Hyperlipidemia type: mixed hyperlipidemia Qualified Code(s): E78.2 - Mixed hyperlipidemia (12) Hypertension Onset Date: 01/20/16 Current Visit: No Status: Chronic Qualifiers: Hypertension type: essential hypertension Qualified Code(s): I10 - Essential (primary) hypertension (13) Hypothyroidism Onset Date: 01/20/16 Current Visit: No Status: Chronic Qualifiers: Hypothyroidism type: acquired Qualified Code(s): E03.9 - Hypothyroidism, unspecified - Plan 1. Continue with IV antibiotic 2. Continue with local wound care 3. Wound care consultation and infectious disease consultation 4. Gentle IV hydration 5. Monitor CBC 6. Strict blood sugar monitoring 7. Pain control 8. GI and DVT prophylaxis Discharge Plan: Home Plan to discharge in: 48 Hours - Advance Directives Does patient have a Living Will: Yes Does patient have a Durable POA for Healthcare: Yes Critical Care: No Time Spent Managing PTS Care (In Minutes): 35
--- NOTE | 2020-08-06 09:59 | P.PN ---
Subjective Date of Service: 08/05/20 We were anticipating discharge today; however, patient's erythema is still very persistent and patient has significant drainage. Spoke with Infectious Disease who wanted IV antibiotic therapy. Will try to get this arranged prior to discharge Review of Systems 10-point ROS is otherwise unremarkable Physical Examination - Vital Signs Temperature: 97.6 F Blood Pressure: 189/94 Pulse: 83 Respirations: 18 Pulse Ox (%): 96 - Physical Exam General: Alert, In no apparent distress, Oriented x3 Respiratory: Clear to auscultation bilaterally, Normal air movement Cardiovascular: Regular rate/rhythm, Normal S1 S2, No murmurs Gastrointestinal: Normal bowel sounds, Soft and benign, Non-distended, No tenderness Musculoskeletal: No clubbing, Swelling, Erythema, Tenderness Integumentary: Tenderness/swelling, Erythema, Warmth Neurological: Sensation intact, Cranial nerves 3-12 intact - Studies Medications List Reviewed: Yes Assessment & Plan - Problems (Diagnosis) (1) Cellulitis of left lower extremity Status: Acute (2) Bacteremia due to Gram-negative bacteria Status: Acute (3) Chronic anemia Onset Date: 02/09/16 Status: Acute (4) Chronic atrial fibrillation Status: Acute (5) 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 Status: Acute (6) Dermatitis Status: Acute (7) Hypokalemia Onset Date: 03/13/15 Status: Acute (8) Hypomagnesemia Onset Date: 03/13/15 Status: Acute (9) Thrombocytopenia Onset Date: 01/20/16 Status: Acute (10) Diabetes mellitus type II, non insulin dependent Onset Date: 01/20/16 Status: Chronic (11) Hyperlipidemia Onset Date: 01/20/16 Status: Chronic Qualifiers: Hyperlipidemia type: mixed hyperlipidemia Qualified Code(s): E78.2 - Mixed hyperlipidemia (12) Hypertension Onset Date: 01/20/16 Status: Chronic Qualifiers: Hypertension type: essential hypertension Qualified Code(s): I10 - Essential (primary) hypertension (13) Hypothyroidism Onset Date: 01/20/16 Status: Chronic Qualifiers: Hypothyroidism type: acquired Qualified Code(s): E03.9 - Hypothyroidism, unspecified - Plan 1. Continue with IV antibiotic; we may need to arrange for outpatient IV antibiotic therapy 2. Continue with local wound care; will arrange for home health to continue with wound care 3. Wound care consultation and infectious disease consultation appreciated 4. Gentle IV hydration; patient appears to be dehydrated 5. Monitor CBC 6. Strict blood sugar monitoring 7. Pain control 8. GI and DVT prophylaxis - Advance Directives Does patient have a Living Will: Yes Does patient have a Durable POA for Healthcare: Yes - Code Status/Comfort Care Code Status Assessed: Yes Code Status: Full Code Critical Care: No Time Spent Managing PTS Care (In Minutes): 35
--- NOTE | 2020-08-06 11:56 | PN ---
Subjective: Patient is lying in bed. No new complaints. Able to eat better. Objective: Vital Signs: Temperature 97.6, pulse 83, respirations 18, blood pressure 189/94. No new changes in examination. Lower extremity wounds noted. Laboratory Data: Shows WBC 4.6, hemoglobin 10.9, platelets are 120. Chemistry shows sodium 144, pot assium 3.6, chloride 111, bicarb 28, BUN 22, creatinine 0.5, glucose 130. Current Medication: Include cefdinir and vancomycin. Micro data is showing the patient has B strep non A, non B in blood. Assessment And Plan: Bacteremia secondary to B strep non A and B, left lower extremity cellulitis, a nemia, thrombocytopenia. Continue supportive care and wound care. Keep legs elevated when possible. NF/MODL Voice ID: [id number] Report ID: [id number]
--- NOTE | 2020-08-06 12:05 | RAD REPORT ---
EXAM DESCRIPTION: XR Chest 1 View CLINICAL HISTORY: PICC placement TECHNIQUE: Single frontal view of the chest is submitted. COMPARISON: None available for comparison FINDINGS: Heart: The cardiothoracic silhouette is mildly enlarged. Lungs: No focal consolidation. Mediastinum: Thoracic aortic atherosclerosis. Pleura: No appreciable effusion. No pneumothorax. Bones: Multilevel spondylosis. No acute fracture. Upper abdomen: Unremarkable Other: Right upper extremity PICC tip projects over the mid superior vena cava. IMPRESSION: Right upper extremity PICC tip projects over the mid superior vena cava. Electronically signed by: Dwain Dinh MD 08/06/2020 12:05 AM [employer] Due to temporary technical issues with the PACS/Fluency reporting system, reports are being signed by the in house radiologist without review as a courtesy to ensure prompt reporting. The interpreting r adiologist is fully responsible for the content of the report.
[2020-08-06 14:49] LABS: Protime INR 2.89
[2020-08-06] MEDS: VANCOMYCIN 1.75 GM in NA CHLORIDE 0.9% 500 ML IVPB SCH (15:31)
[2020-08-06] MEDS: D5W 1,000 ML IV SCH ×2 (15:31→17:59)
[2020-08-06] MEDS ORDERED: clonazePAM 1 MG TAB PO PRN (16:36)
[2020-08-06] MEDS: WARFARIN SODIUM 1 MG TAB PO SCH (16:50)
[2020-08-06] MEDS ORDERED: TRAMADOL HCL 50 MG TAB PO PRN (20:12)
[2020-08-06] MEDS: ATORVASTATIN 40 MG TAB PO SCH (20:31)
[2020-08-07 01:06] VITALS: O2SAT 95
[2020-08-07] MEDS: LEVOTHYROXINE SOD 0.125 MG TAB PO SCH (06:34)
[2020-08-07] MEDS: SOTALOL HCL 80 MG TAB PO SCH ×2 (06:34→17:46)
[2020-08-07] MEDS: LIOTHYRONINE SOD 5 MCG TAB PO SCH (06:34)
[2020-08-07] MEDS: HYDROCODONE/APAP 7.5/325 MG TAB PO PRN ×2 (06:39→12:04)
[2020-08-07 06:59] LABS: BUN Blood Urea Nitrogen 14 mg/dL (7-18); Bicarbonate 29 mmol/L (21-32); Glucose Level 130 mg/dL (74-106); Potassium 3.6 mmol/L (3.5-5.1); Sodium Level 144 mmol/L (136-145)
[2020-08-07] MEDS: INSULIN -REGULAR HUMAN 50 UNIT/0.5 ML ML SQ SCH ×3 (07:30→16:14)
--- NOTE | 2020-08-07 08:57 | P.PN ---
Subjective Date of Service: 08/06/20 Spoke with wound care in infectious Disease. They want to monitor the patient 1 more day in the hospital for continued wound care. We are getting patient set up for IV antibiotic therapy. Review of Systems 10-point ROS is otherwise unremarkable Physical Examination - Vital Signs Temperature: 97.8 F Blood Pressure: 167/70 Pulse: 72 Respirations: 18 Pulse Ox (%): 96 - Physical Exam General: Alert, In no apparent distress, Oriented x3 Respiratory: Clear to auscultation bilaterally, Normal air movement Cardiovascular: Regular rate/rhythm, Normal S1 S2 Gastrointestinal: Normal bowel sounds, Soft and benign, Non-distended, No tenderness, No rebound, No guarding Musculoskeletal: No clubbing, No swelling - Studies Medications List Reviewed: Yes Assessment & Plan - Problems (Diagnosis) (1) Cellulitis of left lower extremity Status: Acute (2) Bacteremia due to Gram-negative bacteria Status: Acute (3) Chronic anemia Onset Date: 02/09/16 Status: Acute (4) Chronic atrial fibrillation Status: Acute (5) 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 Status: Acute (6) Dermatitis Status: Acute (7) Hypokalemia Onset Date: 03/13/15 Status: Acute (8) Hypomagnesemia Onset Date: 03/13/15 Status: Acute (9) Thrombocytopenia Onset Date: 01/20/16 Status: Acute (10) Diabetes mellitus type II, non insulin dependent Onset Date: 01/20/16 Status: Chronic (11) Hyperlipidemia Onset Date: 01/20/16 Status: Chronic Qualifiers: Hyperlipidemia type: mixed hyperlipidemia Qualified Code(s): E78.2 - Mixed hyperlipidemia (12) Hypertension Onset Date: 01/20/16 Status: Chronic Qualifiers: Hypertension type: essential hypertension Qualified Code(s): I10 - Essential (primary) hypertension (13) Hypothyroidism Onset Date: 01/20/16 Status: Chronic Qualifiers: Hypothyroidism type: acquired Qualified Code(s): E03.9 - Hypothyroidism, unspecified - Plan Continue with plan of care as mentioned below 1. Continue with IV antibiotic; arrange for home health with IV vancomycin 2. Continue with local wound care; follow with home health and Wound Care 3. Wound care consultation and infectious disease consultation appreciated 4. Hep-Lock IV; patient eating appropriately 5. Monitor labs as an outpatient 6. Strict blood sugar monitoring 7. Pain control 8. GI and DVT prophylaxis Discharge Plan: Home Plan to discharge in: Greater than 2 days - Advance Directives Does patient have a Living Will: Yes Does patient have a Durable POA for Healthcare: Yes - Code Status/Comfort Care Code Status Assessed: Yes Code Status: Full Code Critical Care: No Time Spent Managing PTS Care (In Minutes): 35
[2020-08-07] MEDS ORDERED: POTASSIUM 25 MEQ EFFERV TAB PO ONE (09:00)
[2020-08-07] MEDS ORDERED: CRANBERRY FRUIT EXTRACT PO SCH (09:00)
[2020-08-07] MEDS ORDERED: METHSCOPOLAMINE BROMIDE 5 MG PO SCH (09:00)
[2020-08-07] MEDS: CEFDINIR 300 MG CAP PO SCH (09:41)
[2020-08-07] MEDS: HYDROCORTISONE 10 MG TAB PO SCH ×2 (09:41→16:14)
[2020-08-07] MEDS: DOCUSATE NA 100 MG CAP PO SCH (09:42)
[2020-08-07] MEDS: LOSARTAN POTASSIUM 50 MG TABLET PO SCH (09:42)
[2020-08-07] MEDS: LACTOBACILLUS/ACIDOPHILUS TAB PO SCH (09:42)
[2020-08-07] MEDS: SOMATROPIN SQ SCH (09:43)
[2020-08-07] MEDS: VITAMIN D 5,000 UNIT CAP PO SCH (09:43)
[2020-08-07] MEDS: FENOFIBRATE 160 MG TAB PO SCH (09:43)
[2020-08-07] MEDS ORDERED: SILVER SULFADIAZINE 1% 25 GM TOP ONE (10:45)
[2020-08-07] MEDS ORDERED: HYDROCORTISONE SUC 100 MG INJ IV ONE (11:41)
[2020-08-07] MEDS ORDERED: WATER FOR INJ,STERILE 10 ML IV ONE (13:00)
[2020-08-07] MEDS: D5W 1,000 ML IV SCH (13:59)
[2020-08-07] MEDS: WARFARIN SODIUM 1 MG TAB PO SCH (16:14)
[2020-08-07] MEDS: VANCOMYCIN 1.75 GM in NA CHLORIDE 0.9% 500 ML IVPB SCH (16:14)
--- NOTE | 2020-08-07 16:46 | PN ---
Subjective: The patient is lying in bed. No new complaints. Objective: Vital Signs: Temperature 97.6, pulse 78, respirations 18, blood pressure 158/67. No new changes in examination. Laboratory Data: Shows WBC 4.6, hemoglobin 10.9, platelets are 120. Chemistry; sodium 144, potassiu m 3.6, chloride 111, bicarb 29, BUN 14, creatinine 0.5, glucose 130. Blood cultures from 07/29 B Str ep, non A and B; 08/02 cultures are negative. Assessment And Plan: 1.Bacteremia, improving. Continue antibiotics for 2 weeks. 2.Left lower extremity cellulitis, improving. Continue to keep leg elevated when possible. No new recommendations. NF/MODL Voice ID: [id number] Report ID: [id number]
--- NOTE | 2020-08-14 15:45 | P.DS ---
Discharge Date: 08/07/20 Primary Care Provider: Dr. 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 Status: Acute (6) Dermatitis Status: Acute (7) Hypokalemia Onset Date: 03/13/15 Status: Acute (8) Hypomagnesemia Onset Date: 03/13/15 Status: Acute (9) Thrombocytopenia Onset Date: 01/20/16 Status: Acute (10) Diabetes mellitus type II, non insulin dependent Onset Date: 01/20/16 Status: Chronic (11) Hyperlipidemia Onset Date: 01/20/16 Status: Chronic Qualifiers: Hyperlipidemia type: mixed hyperlipidemia Qualified Code(s): E78.2 - Mixed hyperlipidemia (12) Hypertension Onset Date: 01/20/16 Status: Chronic Qualifiers: Hypertension type: essential hypertension Qualified Code(s): I10 - Essential (primary) hypertension (13) Hypothyroidism Onset Date: 01/20/16 Status: Chronic Qualifiers: Hypothyroidism type: acquired Qualified Code(s): E03.9 - Hypothyroidism, unspecified Brief History of Present Illness: Pt is an 80-year-old female with history of systolic congestive heart failure, atrial fibrillation on chronic anticoagulation therapy with Coumadin, chronic hypernatremia, diabetes mellitus type 2-insulin dependent, hypertension, GERD, adrenal insufficiency with hypothyroidism, hyperlipidemia presents to the emergency department for left lower extremity swelling, redness, pain. Patient reports that she has had swelling of the left lower extremity for the past 3 weeks with some redness but they just became painful, tender, warm today. Patient with chronic lymphedema of bilateral lower extremities. Workup in the emergency department was significant for mildly elevated sodium 140, potassium 3.3 chloride 115 BNP 506 white count 4.2 hemoglobin 13.9 hematocrit 41.5, platelets 109. INR is 1.49, patient reports that she takes Coumadin 2 mg once daily. Ultrasound lower extremities to rule out DVT negative bilaterally, x-ray tib-fib unremarkable. ED provider elected to give patient vancomycin and cefepime, wishes to admit for further evaluation and management. When I saw the patient in the emergency room she was awake, alert, oriented x3. Vital signs stable, patient does not appear septic at this time. Will be admitted for further evaluation and management. Hospital Course: Patient was treated aggressively with IV antibiotics and wound care. Patient clinical condition has continued to improve. Patient wound is improving as well. Patient was seen by infectious disease as well as Wound Care. At this time will continue with supportive care. Continue with IV antibiotic therapy. Continue with daily wound care. She will need to follow up outpatient. Monitor labs closely as an outpatient. Patient will need to return to the emergency room if symptoms worsen. Vital Signs/Physical Exam: Temp Pulse Resp BP Pulse Ox 98 F 79 18 162/72 H 96 08/07/20 16:00 08/07/20 16:00 08/07/20 16:00 08/07/20 16:00 08/07/20 16:00 General: Alert, In no apparent distress, Oriented x3 Laboratory Data at Discharge: WBC Cancelled 08/04/20 Unknown Hgb Cancelled 08/04/20 Unknown Hct Cancelled 08/04/20 Unknown Plt Count Cancelled 08/04/20 Unknown PT 33.4 SECONDS (9.5-12.5) H 08/06/20 14:30 INR 2.89 08/06/20 14:30 Sodium 144 mmol/L (136-145) 08/07/20 06:05 Potassium 3.6 mmol/L (3.5-5.1) 08/07/20 06:05 BUN 14 mg/dL (7-18) 08/07/20 06:05 Creatinine 0.50 mg/dL (0.55-1.3) L 08/07/20 06:05 Glucose 130 mg/dL (74-106) H 08/07/20 06:05 Magnesium 2.0 mg/dL (1.8-2.4) 08/04/20 05:37 Total Bilirubin 0.5 mg/dL (0.2-1.0) 08/01/20 05:09 AST 7 U/L (15-37) L 08/01/20 05:09 ALT 8 U/L (12-78) L 08/01/20 05:09 Alkaline Phosphatase 44 U/L (45-117) L 08/01/20 05:09 Home Medications: Amlodipine [Norvasc*] 2 tab PO DAILY 07/30/20 Cholecalciferol (Vitamin D3) [Vitamin D3] 5,000 unit PO Q15D 07/30/20 Cranberry Fruit Extract [Cranberry] 1 cap PO DAILY 07/30/20 Dexlansoprazole [Dexilant] 60 mg PO DAILY 07/30/20 Fenofibrate [Tricor*] 145 mg PO DAILY 07/30/20 Glipizide [Glipizide Xl] 2.5 mg PO DAILY 07/30/20 Hydrocortisone [Cortef] 1.5 tab PO BID 07/30/20 Levothyroxine [Synthroid*] 1 tab PO 0630 07/30/20 Liothyronine Sodium [Cytomel] 2 tab PO T,TH,S 07/30/20 Liothyronine Sodium [Cytomel] 5 mcg PO M,W,F 07/30/20 Losartan Potassium [Cozaar] 100 mg PO DAILY 07/30/20 Methscopolamine [place] 5 mg PO DAILY 07/30/20 Potassium Chloride [Klor-Con 10] 1 tab PO DAILY 07/30/20 Somatropin [Omnitrope] 0.3 mg SQ DAILY 07/30/20 Sotalol HCl [Sotalol] 160 mg PO BID 07/30/20 clonazePAM [Klonopin*] 1 tab PO BEDTIME 07/30/20 Atorvastatin Calcium [Lipitor] 40 mg PO BEDTIME #30 tab 08/05/20 Docusate [Colace Cap*] 100 mg PO DAILY #30 cap 08/05/20 Hydrocortisone [Cortef*] 30 mg PO BIDWM #60 tab 08/05/20 Levothyroxine [Synthroid*] 0.125 mg PO DAILYAC #30 tab 08/05/20 Losartan Potassium [Cozaar*] 50 mg PO BID #60 tablet 08/05/20 Melatonin 5 mg PO BEDTIME PRN PRN #20 tablet 08/05/20 Sotalol HCl [Betapace*] 160 mg PO BID 6AM 6PM #60 tab 08/05/20 Vancomycin/0.9 % Sod Chloride [Vanco 1.5 gm/500 ml-0.9% NaCl] 1.5 gm IV DAILY #7 plast..bag 08/05/20 Warfarin Sodium [Coumadin*] 1 mg PO DAILY 5 PM #30 tab 08/05/20 Silver Sulfadiazine [Silvadene 1% Cream] 1 appl TOP BID #1 tube 08/11/20 New Medications: Sotalol HCl [Betapace*] 160 mg PO BID 6AM 6PM #60 tab Docusate [Colace Cap*] 100 mg PO DAILY #30 cap Hydrocortisone [Cortef*] 30 mg PO BIDWM #60 tab Warfarin Sodium [Coumadin*] 1 mg PO DAILY 5 PM #30 tab Losartan Potassium [Cozaar*] 50 mg PO BID #60 tablet Atorvastatin Calcium [Lipitor] 40 mg PO BEDTIME #30 tab Melatonin 5 mg PO BEDTIME PRN PRN #20 tablet PRN Reason: Insomnia Silver Sulfadiazine [Silvadene 1% Cream] 1 appl TOP BID #1 tube Levothyroxine [Synthroid*] 0.125 mg PO DAILYAC #30 tab Vancomycin/0.9 % Sod Chloride [Vanco 1.5 gm/500 ml-0.9% NaCl] 1.5 gm IV DAILY #7 plast..bag Patient Discharge Instructions: OK TO DC IV AND DC HOME. FOLLOW-UP WITH PRIMARY CARE PROVIDER IN 1-2 WEEKS. FOLLOW-UP WITH HOME HEALTH AND WOUND HEALING IN 1-2 WEEKS. RETURN TO THE ER IF SYMPTOMS WORSEN. CALL or TEXT DR. SIMMONS AT [phone] IF ANY QUESTIONS REGARDING HOSPITAL STAY. PLEASE CALL THE FLOOR AT [phone] IF ANY MEDICATION OR NURSING QUESTIONS. Diet: AHA Activity: Fall precautions Followup: Arash Rushing MD [ACTIVE - CAN ADMIT] - 1 Week (Follow up in [facility]ound [facility] [address] in 1 week. Call to schedule an appointment. ) Time spent managing pt's care (in minutes): 35
[2020-08-14 16:39] VITALS: BP 167/70; TEMP 97.8
== END 2020-08-07 20:20 | disposition home health service (06) | DRG 603 ==
LOC: ER 19:41 → ERHOLD 22:22 → 2ND 23:15
PROVIDERS: ADMIT Family Medicine; ATTEND Hospitalist
PROC: 02HV33Z Insertion of Infusion Device into Superior Vena Cava, Percutaneous Approach (ICD-10-PCS; principal; 2020-08-05)
DX: L03.116 Cellulitis of left lower limb (principal); I50.22 Chronic systolic (congestive) heart failure; E87.0 Hyperosmolality and hypernatremia; E27.40 Unspecified adrenocortical insufficiency; R78.81 Bacteremia; I48.20 Chronic atrial fibrillation, unspecified; I87.311 Chronic venous hypertension (idiopathic) with ulcer of right lower extremity; L97.919 Non-pressure chronic ulcer of unspecified part of right lower leg with unspecified severity; I11.0 Hypertensive heart disease with heart failure; E83.42 Hypomagnesemia; L30.9 Dermatitis, unspecified; E78.2 Mixed hyperlipidemia; K21.9 Gastro-esophageal reflux disease without esophagitis; K59.00 Constipation, unspecified; E11.40 Type 2 diabetes mellitus with diabetic neuropathy, unspecified; K81.1 Chronic cholecystitis; E03.9 Hypothyroidism, unspecified; D69.6 Thrombocytopenia, unspecified; B95.1 Streptococcus, group B, as the cause of diseases classified elsewhere; Z88.1 Allergy status to other antibiotic agents; Z88.8 Allergy status to other drugs, medicaments and biological substances; Z79.890 Hormone replacement therapy; Z79.01 Long term (current) use of anticoagulants; Z79.899 Other long term (current) drug therapy; Z86.73 Personal history of transient ischemic attack (TIA), and cerebral infarction without residual deficits; Z86.718 Personal history of other venous thrombosis and embolism; Z90.49 Acquired absence of other specified parts of digestive tract; Z90.710 Acquired absence of both cervix and uterus; Z79.4 Long term (current) use of insulin; Z20.828 Contact with and (suspected) exposure to other viral communicable diseases
CPT/HCPCS: 36415; 36569; 71045; 80048; 80053; 80076; 80202; 81003; 81015; 82565; 82947; 83010; 83036; 83605; 83615; 83735; 83880; 84132; 84145; 84484; 85025; 85610; 87040; 87077; 87186; 87205; 93005; 93970; 96365; 96375; 97110; 97116; 97161; 97530; 99251; 99285; J0692; J1720; J1940; J2270; J2543; J3370; J3480; J7040; J7050; U0002

== ENCOUNTER 2020-12-17 08:05 | Emergency (ER) | payer OTHER ==
--- OUTSIDE RECORDS SUMMARY | 2020-12-17 08:10 | XMS REPORT | Continuity of Care Document ---
:1940 Author Organization [facility] t Address [address] [place] [address] Dr. Saunders [address] [place] [address] Care Team Providers Name Role Phone Juanpablo Iraheta Attending Clinician [phone] RODNEY DEL ROSARIO Attending Clinician Unavailable LETTY HAYES Attending Clinician Unavailable ARLENE SANDOVAL Attending Clinician Unavailable LETTY HAYES Admitting Clinician Unavailable ARLENE SANDOVAL Admitting Clinician Unavailable Problems This patient has no known problems. Allergies, Adverse Reactions, Alerts This patient has no known allergies or adverse reactions. Medications This patient has no known medications. Procedures This patient has no known procedures. Encounters Start End Encounter Admission Attending Care Care Encounter Source Date/Time Date/Time Type Type Clinicians Facility Department ID 2020-11-17 2020-11-17 Outpatient Esequiel [facility] [id number] 00:00:00 00:00:00 Dany [id number] Juanpablo [id number] 2020-11-10 2020-11-10 Outpatient Esequiel [facility] [id number] 00:00:00 00:00:00 Dany [id number] Juanpablo [id number] 2020-10-27 2020-10-27 Outpatient Esequiel [facility] [id number] 00:00:00 00:00:00 Dany [id number] Juanpablo [id number] 2020-10-27 2020-10-27 Outpatient Esequiel [facility] [id number] 00:00:00 00:00:00 Dany [id number] Juanpablo [id number] 2020-10-17 2020-10-17 Outpatient Esequiel [facility] [id number] 00:00:00 00:00:00 Dany [id number] Juanpablo [id number] 2020-09-23 2020-09-23 Outpatient Esequiel [facility] [id number] 00:00:00 00:00:00 Dany [id number] Juanpablo [id number] 2020-09-08 2020-09-08 Outpatient Esequiel [facility] [id number] 00:00:00 00:00:00 Dany [id number] Juanpablo [id number] Results Test Description Test Time Test Comments [...] SOURCE(BEAKER) (test code = 2795) Urine, Voided [id number] 13:11:00 Test Item Value Reference Range Interpretation Comments LIPASE (BEAKER) (test code = 749) 45 U/L 8-78 BASIC METABOLIC [id number] 13:11:00 Test Item Value Reference Range Interpretation [...] APPLICABLE FOR DIALYSIS PATIEN TS. HEPATIC FUNCTION [id number] 13:11:00 Test Item Value Reference Range Interpretation [...] (test code = 14 U/L 6-55 347) [id number] 13:02:00 Test Item Value Reference Range Interpretation [...] PERCENT (BEAKER) (test code = 2801) TISSUE [id number] 13:06:00Surgical Pathology Report Case: [id number] Authorizing Provider: Luiz Hayes Collected: 03/14/2018 1115 Ordering Location: [facility] Endoscopy Received: 03/14/2018 1351 Services Pathologist: Mara Barboza MD Specimens: A) -Polyp, Duodenum B) - Stomach, Antrum, bx C) - Biopsy, Gastric, gastric body D) - Biopsy, Esophagus, random THIS ADDENDUM IS ISSUED TO REPORT THE RESULT OF IMMUNOHISTOCHEMICAL STUDY FOR HELICOBACTER PYLORI OM SPECIMEN B: - NEGATIVE CPT CODE: [id number] electronically signed by Mara Barboza MD on [...] MALIGNANCY SEEN Signing Pathologist Direct Phone Line: [phone] signed by Mara Barboza MD on 03/17/2018 at 10:35 [id number] X 4; [id number] X 2A. Polyp, duodenum. B. Stomach antrum. [...] the diagnostic report above:AMBER X 2 POCT-GLUCOSE [id number] 12:41:00 Test Item Value Reference Range Interpretation Comments POC-GLUCOSE METER 75 mg/dL 70-110 TESTED AT [facility] 67 (BEAKER) (test code = MICAH Kaye [facility] [address] 1538) BLOOD [id number] 06:00:00 Test Item Value Reference Range Interpretation Comments CULTURE (BEAKER) (test No growth in 5 days code = 1095) BLOOD [id number] 06:00:00 Test Item Value Reference Range Interpretation Comments CULTURE (BEAKER) (test No growth in 5 days code = 1095) POCT-GLUCOSE [id number] 12:32:00 Test Item Value Reference Range Interpretation Comments POC-GLUCOSE METER 217 mg/dL 70-110 H TESTED AT [facility] 6720 (BEAKER) (test code = MICAH Kaye [place] 1538) [address] POCT-GLUCOSE [id number] 08:36:00 Test Item Value Reference Range Interpretation Comments POC-GLUCOSE METER 92 mg/dL 70-110 TESTED AT [facility] 6720 (BEAKER) (test code = [place] [address] 1538) COMPREHENSIVE METABOLIC [id number] 04:59:00 Test Item Value Reference Range Interpretation [...] S NOT APPLICABLE FOR DIALYSIS PATIEN TS. [id number] 04:50:00 Test Item Value Reference Range Interpretation Comments MAGNESIUM (BEAKER) (test code = 1.7 mg/dL 1.6-2.6 627) PROTHROMBIN [id number] 04:35:00 Test Item Value Reference Range Interpretation [...] PERCENT (BEAKER) (test code = 2801) POCT-GLUCOSE [id number] 22:13:00 Test Item Value Reference Range Interpretation Comments POC-GLUCOSE METER 194 mg/dL 70-110 H TEST[facility] AT [place] [address] [facility] (test code = [facility] 1538) [address] POCT-GLUCOSE [id number] 18:14:00 Test Item Value Reference Range Interpretation Comments POC-GLUCOSE METER 195 mg/dL 70-110 H TESTED AT [place] [address] ([facility]) (test code = [facility] 1538) [address] POCT-GLUCOSE [id number] 12:20:00 Test Item Value Reference Range Interpretation Comments POC-GLUCOSE METER 224 mg/dL 70-110 H TESTED AT [place] [address] ([facility]) (test code = [facility] 1538) [address] [id number] 08:55:00 Test Item Value Reference Range Interpretation Comments LIPASE (BEAKER) (test code = 749) 471 U/L 8-78 H POCT-GLUCOSE [id number] 08:12:00 Test Item Value Reference Range Interpretation Comments POC-GLUCOSE METER 128 mg/dL 70-110 H TESTED AT [place] [address] [facility] (test code = [facility] 1538) [address] [id number] 04:12:00 Test Item Value Reference Range Interpretation Comments T3 TOTAL (BEAKER) (test code = 656) 41 ng/dL 48-159 L T3, [id number] 04:11:00 Test Item Value Reference Range Interpretation Comments T3 FREE (BEAKER) (test code = 908) 1.31 pg/mL 1.71-3.71 L COMPREHENSIVE METABOLIC [id number] 04:01:00 Test Item Value Reference Range Interpretation [...] S NOT APPLICABLE FOR DIALYSIS PATIEN TS. [id number] 03:54:00 Test Item Value Reference Range Interpretation Comments MAGNESIUM (BEAKER) (test code = 1.7 mg/dL 1.6-2.6 627) PROTHROMBIN [id number] 03:53:00 Test Item Value Reference Range Interpretation [...] PERCENT (BEAKER) (test code = 2801) POCT-GLUCOSE [id number] 22:34:00 Test Item Value Reference Range Interpretation Comments POC-GLUCOSE METER 252 mg/dL 70-110 H TESTED AT [facility] 6720 (BEAKER) (test code = MICAH [place] 1538) [address] [id number] 19:36:00 Test Item Value Reference Range Interpretation Comments MAGNESIUM (BEAKER) (test code = 1.6 mg/dL 1.6-2.6 627) BASIC METABOLIC [id number] 19:36:00 Test Item Value Reference Range Interpretation [...] NOT APPLICABLE FOR DIALYSIS PATIEN TS. URINE [id number] 11:51:00 Test Item Value Reference Range Interpretation Comments CULTURE ([facility]) (test code = 1095) No growth POCT-GLUCOSE [id number] 11:42:00 Test Item Value Reference Range Interpretation Comments POC-GLUCOSE METER 205 mg/dL 70-110 H TESTED AT [place] [address] ([facility]) (test code = [facility] [place] 1538) [address] POCT-GLUCOSE [id number] 08:08:00 Test Item Value Reference Range Interpretation Comments POC-GLUCOSE METER 119 mg/dL 70-110 H TESTED AT [place] [address] ([facility]) (test code = [facility] 1538) [address] C. DIFFICILE GDH [id number] 07:40:00 Test Item Value Reference Range Interpretation Comments CDT TOXIN (test code Negative Negative = [id number]) CDT GDH ANTIGEN Positive Negative A C. difficile present but (test code = toxin not detec leesa. [id number]) Indicates colon ization with non-toxige lizbeth strain [...] HOSPITAL Microbiology Lab prior to clinical use.POCT-GLUCOSE [id number] 06:37:00 Test Item Value Reference Range Interpretation Comments POC-GLUCOSE METER 141 mg/dL 70-110 H TESTED AT [facility] 67 ([facility]) (test code = [facility] 1538) [address] COMPREHENSIVE METABOLIC [id number] 04:48:00 Test Item Value Reference Range Interpretation Comments TOTAL PROTEIN 4.7 gm/dL 6.0-8.3 L ([facility]) (test code = 770) ALBUMIN ([facility]) 2.7 g/dL 3.5-5.0 L (test code = 1145) ALKALINE PHOSPHATASE 33 U/L 40-150 L ([facility]) (test code = 346) BILIRUBIN [...] NOT APPLICABLE FOR DIALYSIS PATIEN TS. PROTHROMBIN [id number] 04:40:00 Test Item Value Reference Range Interpretation Comments PROTIME (BEAKER) (test code = 23.8 seconds 11.7-14.7 H 759) INR (BEAKER) (test code = 370) 2.1 <=5.9 RECOMMENDED COUMADIN/WARFARIN INR THERAPY RANGESSTANDARD DOSE: 2.0 - 3.0 Includes: PROPHYLAXIS forvenous thrombosis, systemic embolization; TREATMENT for venous thrombosis and/or pulmonary embolus.HIGH RISK: Target INR is 2.5-3.5 for patients with mechanical heart valves.While on warfarin.[id number] 04:29:00 Test Item Value Reference Range Interpretation Comments MAGNESIUM (BEAKER) (test code = 2.0 mg/dL 1.6-2.6 627) CBC W/PLT COUNT & AUTO [id number] 04:11:00 Test Item Value Reference Range Interpretation [...] % 0-1 PERCENT (BEAKER) (test code = 5321) POCT-GLUCOSE [id number] 22:19:00 Test Item Value Reference Range Interpretation Comments POC-GLUCOSE METER 266 mg/dL 70-110 H TESTED AT [place] [address] (BEAKER) (test code = MICAH Kaye [facility] 1538) [address] [id number] 17:54:00 Test Item Value Reference Range Interpretation Comments POTASSIUM (BEAKER) (test code = 4.2 meq/L 3.5-5.1 379) [id number] 17:23:00 Test Item Value Reference Range Interpretation Comments MAGNESIUM (BEAKER) (test code = 1.7 mg/dL 1.6-2.6 627) POCT-GLUCOSE [id number] 12:41:00 Test Item Value Reference Range Interpretation Comments POC-GLUCOSE METER 111 mg/dL 70-110 H TESTED AT [place] [address] (BEAKER) (test code = MICAH Kaye [facility] 1538) [address] [id number] 12:40:00 Test Item Value Reference Range Interpretation Comments POTASSIUM (BEAKER) (test code = 3.5 meq/L 3.5-5.1 379) POCT-GLUCOSE [id number] 10:05:00 Test Item Value Reference Range Interpretation Comments POC-GLUCOSE METER 94 mg/dL 70-110 TESTED AT [place] [address] (BEAKER) (test code = MICAH Kaye [facility] [address] 1538) COMPREHENSIVE METABOLIC [id number] 05:47:00 Test Item Value Reference Range Interpretation [...] S NOT APPLICABLE FOR DIALYSIS PATIEN TS. [id number] 05:44:00 Test Item Value Reference Range Interpretation Comments MAGNESIUM (BEAKER) (test code = 2.0 mg/dL 1.6-2.6 627) PROTHROMBIN [id number] 05:37:00 Test Item Value Reference Range Interpretation Comments PROTIME (BEAKER) (test code = 24.0 seconds 11.7-14.7 H 759) INR (BEAKER) (test code = 370) 2.2 <=5.9 RECOMMENDED COUMADIN/WARFARIN INR THERAPY RANGESSTANDARD DOSE: 2.0 - 3.0 Includes: PROPHYLAXIS forvenous thrombosis, systemic embolization; TREATMENT for venous thrombosis and/or pulmonary embolus.HIGH RISK: Target INR is 2.5-3.5 for patients with mechanical heart valves.PROTHROMBIN [id number] 05:36:00 Test Item Value Reference Range Interpretation [...] valves.While on warfarin.CBC W/PLT COUNT & AUTO [id number] 05:35:00 Test Item Value Reference Range Interpretation [...] 417) IMMATURE GRANULOCYTES-RELATIVE 1 % 0-1 PERCENT ([facility]) (test code = 2801) POCT-GLUCOSE [id number] 23:56:00 Test Item Value Reference Range Interpretation Comments POC-GLUCOSE METER 105 mg/dL 70-110 TESTED AT [facility] 6720 ([facility]) (test code = MICAH Kaye [facility] 1538) [address] TROPONIN [id number] 13:02:00 Test Item Value Reference Range Interpretation Comments TROPONIN I ([facility]) (test code = 0.02 ng/mL [...] Reference Range Interpretation Comments B-TYPE NATRIURETIC PEPTIDE ([facility]) 975 pg/mL 0-100 H (test code = 700) POCT-GLUCOSE [id number] 12:18:00 Test Item Value Reference Range Interpretation Comments POC-GLUCOSE METER 175 mg/dL 70-110 H TESTED AT [facility] 6720 ([facility]) (test code = MICAH Kaye [facility] 1538) [address] U/S, ABDOMINAL, [id number] 10:23:00Abdomen limited area? Add comment if clarification [...] MDReport Verified Date/Time: 01/14/2018 10:23:02 Reading Location: [address] Ortho Consult Reading Room T4, [id number] 08:42:00 Test Item Value Reference Range Interpretation Comments FREE T4 ([facility]) (test code = 655) 0.83 ng/dL 0.70-1.48 POCT-GLUCOSE [id number] 08:37:00 Test Item Value Reference Range Interpretation Comments POC-GLUCOSE METER 161 mg/dL 70-110 H TESTED AT [facility] 6720 ([employer]) (test code = [facility] Mikki [facility] 1538) [address] TSH/FREE T4 IF [id number] 08:05:00 Test Item Value Reference Range Interpretation Comments THYROID STIMULATING HORMONE 0.02 uIU/mL 0.35-4.94 L ([employer]) (test code = 772) VITAMIN B12 AND [id number] 07:42:00 Test Item Value Reference Range Interpretation Comments VITAMIN B12 ([employer]) (test code = 1276 pg/mL 213-816 H 774) FOLATE ([employer]) (test code = 362) 8.8 ng/mL >=7.0 LIPID [id number] 07:14:00 Test Item Value Reference Range Interpretation [...] Borderline 130-159 High 160-189 Very High >=190TROPONIN [id number] 07:12:00 Test Item Value Reference Range Interpretation [...] acute neurological disease, and persistent tachyarrhythmia.URINALYSIS W/ [id number] 06:35:00 Test Item Value Reference Range Interpretation [...] 517) SOURCE(BEAKER) (test code = Urine, [place] 8385) [id number] 06:07:00 Test Item Value Reference Range Interpretation Comments MAGNESIUM (BEAKER) (test code = 1.8 mg/dL 1.6-2.6 627) [id number] 05:32:00 Test Item Value Reference Range Interpretation Comments MAGNESIUM (BEAKER) (test code = 2.5 mg/dL 1.6-2.6 627) COMPREHENSIVE METABOLIC [id number] 05:32:00 Test Item Value Reference Range Interpretation [...] NOT APPLICABLE FOR DIALYSIS PATIEN TS. PROTHROMBIN [id number] 05:10:00 Test Item Value Reference Range Interpretation [...] 0-1 PERCENT (BEAKER) (test code = 2801) [id number] 02:52:00 Test Item Value Reference Range Interpretation Comments PROCALCITONIN (BEAKER) (test code 0.41 ng/mL <0.05 H = 3036) SEPSIS RISK (ng/mL)Low: 0.05-0.50Intermediate: 0.51-2.00High: >=2.01LACTIC ACID, VENOUS, WHOLE [id number] 02:06:00 Test Item Value Reference Range Interpretation Comments LACTATE BLOOD VENOUS 1.3 mmol/L 0.5-2.2 Specime n slightly (2) (BEAKER) (test hemolyzed code = 2872) Effective 01/07/2016: Units/Reference Range ChangeNew: 0.5-2.2 mmol/L Previous: 5-20 mg/dLCOMPREHENSIVE METABOLIC [id number] 02:06:00 Test Item Value Reference Range Interpretation [...] S NOT APPLICABLE FOR DIALYSIS PATIEN TS. [id number] 02:04:00 Test Item Value Reference Range Interpretation Comments LIPASE (BEAKER) (test code = 749) 730 U/L 8-78 H [id number] 02:04:00 Test Item Value Reference Range Interpretation Comments AMYLASE (BEAKER) (test code = 349) 226 U/L 25-125 H PROTHROMBIN [id number] 01:45:00 Test Item Value Reference Range Interpretation Comments PROTIME (BEAKER) (test code = 23.9 seconds 11.7-14.7 H 759) INR (BEAKER) (test code = 370) 2.1 <=5.9 RECOMMENDED COUMADIN/WARFARIN INR THERAPY RANGESSTANDARD DOSE: 2.0 - 3.0 Includes: PROPHYLAXIS forvenous thrombosis, systemic embolization; TREATMENT for venous thrombosis and/or pulmonary embolus.HIGH RISK: Target INR is 2.5-3.5 for patients with mechanical heart valves.[id number] 01:45:00 Test Item Value Reference Range Interpretation Comments PARTIAL THROMBOPLASTIN TIME 32.4 seconds 22.5-36.0 (BEAKER) (test code = 760) CBC W/PLT COUNT & AUTO [id number] 01:38:00 Test Item Value Reference Range Interpretation [...] % 0-1 PERCENT (BEAKER) (test code = 2809)
[2020-12-17] MEDS ORDERED: ONDANSETRON 4 MG/2 ML VIAL ONE (09:10)
[2020-12-17] MEDS ORDERED: MORPHINE 4 MG/ML SYR ONE ×2 (09:10→12:50)
--- NOTE | 2020-12-17 09:12 | RAD REPORT ---
EXAM DESCRIPTION: CT - Spine Lumbar Wo Con - 12/17/2020 8:44 am CLINICAL HISTORY: PAINBack pain, left lower quadrant pain, history of lumbar fusion 1 week earlier COMPARISON: MRI lumbar spine November 05 TECHNIQUE: Thin section axial imaging of the lumbar spine was performed. Sagittal and coronal recon struction images were generated and reviewed. All CT scans are performed using dose optimization technique as appropriate and may include automated exposure control or mA/KV adjustment according to patient size. FINDINGS: Since the November 05 MRI study the patient has undergone two level vertebroplasty at L3 and L4. No change in height of the L3 body. Height loss is primarily along the superior endplate. [employer]chand[employer] ior wall height is preserved. Superior endplate L4 height loss has not changed. Posterior wall height is preserved. There is concavity to the inferior endplate L4 that was not evident on the MRI study. T11 -L2 show no change in height or positioning since the MRI study. Very advanced degenerative no e remains at the L1-2 disc space. L5 height is preserved. Degenerative gas is present at all disc lev els. No paraspinal mass or hematoma. Central canal detail is inherently limited. Disc bulge and endplate spurring at T12-L1 noted with prominent facet degenerative change. L1-L2 disc bulge and endplate spurring changes match the MRI. Central canal is 8 mm. Bilateral forami nal encroachment is evident on this examination. Disc bulge, endplate spurring facet degenerative change and ligamentous thickening at L2-3 cause bord simba stenosis. Foraminal stenosis changes are evident. Disc bulge and severe facet hypertrophy at L3-4 cause central spinal stenosis to 8- 9 mm. Mild bilate ral foraminal stenosis is evident. Stenosis is present at the L4 lateral recess level. A small amount of the L4 vertebroplasty bone cement extends into the central canal along the right-si de posterior wall. . This has mild mass effect on the thecal sac. Severe L4-5 spinal stenosis is present with severe L5 lateral recess stenosis. Protruding disc materi al, facet hypertrophy and severe ligamentous thickening reduce the central canal to 5 mm. IMPRESSION: Since November 05 MRI study patient has undergone L3 and L4 vertebroplasty procedure. No change in the height of the L3 body since the MRI study. L4 shows new concavity to the inferior endplate indicating additional loss in height since the MRI st udy. This may have occurred prior to or subsequent to the vertebroplasty. Posterior wall height is pr eserved. Small amount of bone cement from the L4 vertebroplasty extends into the central canal having only mil d mass effect on the thecal sac. Patient has severe degenerative change in the lumbar spine as detailed above and on the November 05 MRI study. These findings are not measurably different. There is severe spinal stenosis at L4-5.
[2020-12-17 09:33] LABS: Urine Blood Negative (Negative); Urine Glucose Trace (Negative); Urine Protein Negative (Negative); Urine Specific Gravity >=1.030 (1.005-1.030); Urine pH 6.5 (5.0-7.0)
--- NOTE | 2020-12-17 11:53 | EDPHYS ---
Physician Documentation [facility] Name: Emelia Payan Age: 80 yrs Sex: Female : 1940 Arrival Date: 12/17/2020 Time: 08:08 Bed 13 Private MD: ED Physician Michael Tellez Historical: - Allergies: 12/17 08:19 Bactrim; ss 08:19 Cipro; ss 08:19 Xarelto; ss - PMHx: 08:19 adrenal insuficiency; Anxiety; Pancreatitis; CHF; Atrial Fib; DVT; Hyperlipidemia; ss Hypothyroidism; Diabetes - IDDM; CVA; Hypertension; - PSHx: 08:19 pituitary; Appendectomy; Carpal Tunnel Repair; Lumpectomy; ss - Immunization history:: Adult Immunizations up to date. - Social history:: Smoking status: Patient denies any tobacco usage or history of. Vital Signs: 08:16 BP 155 / 66; Pulse 78; Resp 16; Temp 97.7(TE); Pulse Ox 100% on R/A; Weight 77.56 kg; ss Height 5 ft. 4 in. (162.56 cm); Pain 10/10; 09:29 BP 155 / 77; Pulse 63; Resp 18; Pulse Ox 100% on R/A; bw 10:45 BP 163 / 62; Pulse 57; Resp 18; Pulse Ox 100% ; bw 11:47 BP 168 / 65; Pulse 60; Resp 18; Pulse Ox 100% on R/A; bw 08:16 Body Mass Index 29.35 (77.56 kg, 162.56 cm) ss MDM: 11:52 Patient medically screened. kdr 12/17 09:32 Order name: Urine Dipstick-Ancillary; Complete Time: 11:18 EDMS 12/17 08:26 Order name: CT Lumbar Spine Wo Con; Complete Time: 11:18 kdr 12/17 08:26 Order name: Urine Dipstick-Ancillary (obtain specimen); Complete Time: 09:32 kdr Administered Medications: 09:12 Drug: Zofran (Ondansetron) 4 mg Route: IVP; Site: right antecubital; bw 10:57 Follow up: Response: No adverse reaction bw 09:13 Drug: morphine 4 mg Route: IVP; Site: right antecubital; bw 10:57 Follow up: Response: No adverse reaction bw 12:36 Drug: morphine 4 mg {Note: rass 0.} Route: IVP; Site: right antecubital; ca1 16:29 Follow up: Response: No adverse reaction bw Disposition: 12/17/20 11:52 Discharged to Home. Impression: Low back pain - s/p vertbroplasty. - Condition is Stable. - Discharge Instructions: Musculoskeletal Pain, Back Pain, Adult, Ohit-sh-Afzv. - Prescriptions for Tylenol- Codeine #3 300-30 mg Oral Tablet - take 1 tablet by ORAL route every 4-6 hours As needed; 20 tablet. - Medication Reconciliation Form, Thank You Letter, Prescription Opioid Use form. - Follow up: Private Physician; When: 2 - 3 days; Reason: If symptoms return, Further diagnostic work-up, Recheck today's complaints, Continuance of care, Re-evaluation by your physician. - Problem is an acute exacerbation. - Symptoms have improved. - Notes: You may take one tab of your hydrocodone every 4-6 hours as needed for pain. You can follow-up wiolga Metzger tomorrow at the [place] office or Tuesday at his [place] office. Call today for an appointment. Addendum: 12/18/2020 13:23 Addendum: CC: Low back pain, HPI: The patient states that she has had low back pain for k about three weeks. She had a lumbar fusion about two weeks ago and initially felt better but is now feeling poorly again and her pain medication (last take last night) is not helping. She denies any change in her bowel or bladder habits or control: ROS: 10 pt ROS all negative except fo low back pain, EXAM: WDWN WF very mild distress.. Head and neck: WNL, Chest WNL, Cardiac, WNL, Lungs, WNL, ABD: NT, BS present and normal MDM: The patient responded well to the interventions given and was happy with the improvement and the plan for discharge and follow-up with her , whom I spoke with either tomorrow in [place] or Tuesday o=in [place]. Signatures: Dispatcher [employer] EDMichael Nolasco MD MD kdr Smirch, Shelby, RN RN ss Josephine Curry RN RN [facility] Senia Oneal RN RN Corrections: (The following items were deleted from the chart) 12/17 13:06 11:52 12/17/2020 11:52 Discharged to Home. Impression: Low back pain - s/p bw vertbroplasty. Condition is Stable. Forms are Medication Reconciliation Form, Thank You Letter, Antibiotic Education, Prescription Opioid Use. Follow up: Private Physician; When: 2 - 3 days; Reason: If symptoms return, Further diagnostic work-up, Recheck today's complaints, Continuance of care, Re-evaluation by your physician. Problem is an acute exacerbation. Symptoms have improved. kdr
--- NOTE | 2020-12-17 11:53 | ER ---
Nurse's Notes [facility] Name: Emelia Payan Age: 80 yrs Sex: Female : 1940 Arrival Date: 12/17/2020 Time: 08:08 Bed 13 Private MD: Diagnosis: Low back pain-s/p vertbroplasty Presentation: 12/17 08:16 Chief complaint: Patient states: low back pain x 3 weeks. Pt reports she had a lumbar ss fusion a week ago and the pain was better the next day, but now it's hurting again. Pt also c/o LLQ pain and tenderness for the same period of time. Coronavirus screen: Client denies travel out of the [place] in the last 14 days. Ebola Screen: Patient denies exposure to infectious person. Patient denies travel to an Ebola-affected area in the 21 days before illness onset. Initial Sepsis Screen: Does the patient meet any 2 criteria? No. Patient's initial sepsis screen is negative. Does the patient have a suspected source of infection? No. Patient's initial sepsis screen is negative. Risk Assessment: Do you want to hurt yourself or someone else? Patient reports no desire to harm self or others. Onset of symptoms is unknown. 08:16 Method Of Arrival: Wheelchair ss 08:16 Acuity: EDIS 3 ss Triage Assessment: 13:06 General: Appears in no apparent distress. uncomfortable, Behavior is calm, cooperative, bw appropriate for age. Historical: - Allergies: 08:19 Bactrim; ss 08:19 Cipro; ss 08:19 Xarelto; ss - PMHx: 08:19 adrenal insuficiency; Anxiety; Pancreatitis; CHF; Atrial Fib; DVT; Hyperlipidemia; ss Hypothyroidism; Diabetes - IDDM; CVA; Hypertension; - PSHx: 08:19 pituitary; Appendectomy; Carpal Tunnel Repair; Lumpectomy; ss - Immunization history:: Adult Immunizations up to date. - Social history:: Smoking status: Patient denies any tobacco usage or history of. Screenin:29 Abuse screen: Denies threats or abuse. Nutritional screening: No deficits noted. bw Tuberculosis screening: No symptoms or risk factors identified. Fall Risk None identified. Assessment: 09:29 Pain: Complains of pain in back and abdomen. Neuro: No deficits noted. Cardiovascular: bw No deficits noted. Respiratory: No deficits noted. GI: Bowel sounds present X 4 quads. Abd is soft and non tender. : No deficits noted. 10:45 Reassessment: Patient appears in no apparent distress at this time. Patient and/or bw family updated on plan of care and expected duration. Pain level reassessed. Patient is alert, oriented x 3, equal unlabored respirations, skin warm/dry/pink. 11:47 Reassessment: Patient appears in no apparent distress at this time. Patient and/or bw family updated on plan of care and expected duration. Pain level reassessed. Patient is alert, oriented x 3, equal unlabored respirations, skin warm/dry/pink. 12:25 Reassessment: Dr. Tellez at bedside discussing plan of care/ discharge plans. Patient ss is requesting additional pain medication prior to discharge. Awaiting additional orders. Discharge delayed at this time. Vital Signs: 08:16 BP 155 / 66; Pulse 78; Resp 16; Temp 97.7(TE); Pulse Ox 100% on R/A; Weight 77.56 kg; ss Height 5 ft. 4 in. (162.56 cm); Pain 10/10; 09:29 BP 155 / 77; Pulse 63; Resp 18; Pulse Ox 100% on R/A; bw 10:45 BP 163 / 62; Pulse 57; Resp 18; Pulse Ox 100% ; bw 11:47 BP 168 / 65; Pulse 60; Resp 18; Pulse Ox 100% on R/A; bw 08:16 Body Mass Index 29.35 (77.56 kg, 162.56 cm) ED Course: 08:08 Patient arrived in ED. mr 08:18 Triage completed. ss 08:19 Arm band placed on right wrist. ss 08:25 Michael Tellez MD is Attending Physician. kdr 08:29 Senia Oneal, ODILON is Primary Nurse. bw 08:44 CT Lumbar Spine Wo Con In Process Unspecified. EDMS 09:29 Patient has correct armband on for positive identification. Bed in low position. Call bw light in reach. Side rails up X 1. Pulse ox on. NIBP on. Warm blanket given. 09:29 No provider procedures requiring assistance completed. Inserted saline lock: 20 gauge bw in right antecubital area, using aseptic technique. 09:33 Urine Dipstick-[facility] 09:33 Urine collected: straight cath specimen, clear. [facility] 13:05 IV discontinued, intact, bleeding controlled, Pressure dressing applied. bw Administered Medications: 09:12 Drug: Zofran (Ondansetron) 4 mg Route: IVP; Site: right antecubital; bw 10:57 Follow up: Response: No adverse reaction 09:13 Drug: morphine 4 mg Route: IVP; Site: right antecubital; bw 10:57 Follow up: Response: No adverse reaction 12:36 Drug: morphine 4 mg {Note: rass 0.} Route: IVP; Site: right antecubital; ca1 16:29 Follow up: Response: No adverse reaction Outcome: 11:52 Discharge ordered by . kdr 13:05 Discharged to home ambulatory. 13:05 Condition: stable 13:05 Discharge instructions given to patient. 13:06 Patient left the ED. Signatures: Dispatcher [employer] EDMS Michael Tellez MD MD [facility] Polly Paty Villareal, Dottie Hathaway RN [facility] Josephine Curry RN RN [facility] Senia Oneal RN RN Corrections: (The following items were deleted from the chart) 09:32 09:29 Pulse 63bpm; Resp 18bpm; Pulse Ox 100% RA; bw bw
[2020-12-17 13:11] VITALS: TEMP 97.7; O2SAT 100
[2020-12-17 13:19] VITALS: BP 168/65
== END 2020-12-17 13:06 | disposition home or self-care (01) ==
LOC: ER 08:05
DX: M54.5 Low back pain (principal); Z98.890 Other specified postprocedural states; I10 Essential (primary) hypertension; Z88.1 Allergy status to other antibiotic agents; Z88.8 Allergy status to other drugs, medicaments and biological substances; Z86.73 Personal history of transient ischemic attack (TIA), and cerebral infarction without residual deficits
CPT/HCPCS: 81003; 72131; 96375; 96374; 99284; J2405

== ENCOUNTER 2020-12-20 21:59 | Emergency (ER) | payer OTHER ==
--- OUTSIDE RECORDS SUMMARY | 2020-12-20 22:03 | XMS REPORT | Continuity of Care Document ---
:1940 Author Organization [facility] t Address [address] [place] [address] Care Team Providers Name Role Phone Juanpablo Iraheta MD Primary Care Physician Juanpablo Iraheta Attending Clinician [phone] RODNEY DEL ROSARIO Attending Clinician Unavailable LETTY HAYES Attending Clinician Unavailable ARLENE SANDOVAL Attending Clinician Unavailable LETTY HAYES Admitting Clinician Unavailable ARLENE SANDOVAL Admitting Clinician Unavailable Problems Condition Condition Condition Status Onset Resolution Last Treating Co mments Source Name Details Category Date Date Treatment Clinician Date Pancreatit Pancreatit Disease Active [facility] 00 [place] Sepsis Sepsis Disease Active [facility] [place] Paroxysmal Paroxysmal Disease Active [facility] A-fib A-fib [facility] 00 [place] Allergies, Adverse Reactions, Alerts Allergy Allergy Status Severity Reaction(s) Onset Inactive Treating Comm ents Source Name Type Date Date Clinician Ciproflo Propensi Active Itching [facility] - adverse 00:00: Medical reaction 00 [place] Rivaroxa Drug Active Other (See Internal [facility] ban Intolera Comments) 01-14 bleeding [facility] - nce 00:00: Medical 00 [place] Family History Family Member Diagnosis Comments Start Date Stop Date Source Natural father Heart disease [facility] Natural mother Heart disease [facility] Social History Social Habit Start Date Stop Date Quantity Comments Source Sex Assigned At [facility] Tobacco use and 2018-11-09 2018-11-09 Never used [facility] - exposure 00:00:00 00:00:00 [facility] Alcohol intake 2018-11-09 2018-11-09 Current [facility] es - 00:00:00 00:00:00 non-drinker of Medical nter alcohol (finding) Smoking Status Start Date Stop Date Source Never smoker [facility] edical [place] Medications Ordered Filled Start Stop Current Ordering Indication Dosage Frequency Signature Comments Components Source Medication Medication Date Date Medication? Clinician (SIG) Name Name cholecalcif Yes [id number] Take [facility], 3-07 50,000 [facility] - vitamin D3, 12:12: Units by Ca dical 50,000 unit 28 mouth once Ce [...] MG tablet 12:12: daily. Medica l 28 [place] omeprazole Yes 40mg QD Take [address] (PRILOSEC) 3-07 by mouth [facility] - 40 MG 12:12: daily. Medical capsule 28 [place] potassium Yes 10meq QD Take 10 [facility] [...] mg/mL) 12:12: usly. Medic al PnIj 28 [place] levothyroxi Yes hypothyroid 125ug Take [address] ne 3-07 ism mcg by [facility] - (SYNTHROID, 12:12: mouth Medic al LEVOTHROID) 27 Every Center 125 MCG morning on tablet an empty stomach. amLODIPine 2018- Yes 5mg QD Take [address] (NORVASC) 5 3-07 by mouth Luke s - MG tablet 12:12: daily. Medica l 27 Center losartan 2018-0 Yes 100mg QD Take [address] (COZAAR) 3-07 mg by [facility] - 100 MG 12:12: mouth Medical tablet 27 daily. Center methscopola 2019 Yes 5mg QD Take [address] mine 3-07 by mouth [facility] - (PAMINE 12:12: nightly. Medica l FORTE) 5 MG 27 Center tablet glipiZIDE 2017- Yes 5mg QD Take [address] (GLUCOTROL 5-16 tablets (5 Mindy es - XL) 2.5 MG 00:00: mg total) Me dical 24 hr 00 by mouth Center tablet daily. warfarin 2017- Yes 2.5mg QD Take 2.[address] (COUMADIN) 4-25 mg by [facility] - 2.5 MG 00:00: mouth Medical tablet 00 daily . Center gabapentin 2018- Yes 600mg Q.[id number] Take [address] (NEURONTIN) 4-16 [id number] mg by L ukes - 600 MG [...] 00:00:00 (1 of 1 - Medical Center [id number] PCV13) [code = PNEUMOCOCCAL 65+ YRS (1 of 1 - [id number]_Ffxoeme PCV13)] Encounters Start End Encounter Admission Attending Care Care Encounter Source Date/Time Date/Time Type Type Clinicians Facility Department ID 2020-12-19 2020-12-19 Outpatient Esequiel [facility] [id number] 00:00:00 00:00:00 Dany [id number] Juanpablo [id number] 2020-11-17 2020-11-17 Outpatient Esequiel [facility] [id number] 00:00:00 00:00:00 Dany [id number] Juanpablo [id number] 2020-11-10 2020-11-10 Outpatient Esequiel [facility] [id number] 00:00:00 00:00:00 Dany [id number] Juanpablo [id number] 2020-10-27 2020-10-27 Outpatient Esequiel [facility] [id number] 00:00:00 00:00:00 Dany [id number] Juanpablo [id number] 2020-10-27 2020-10-27 Outpatient Esequiel [facility] [id number] 00:00:00 00:00:00 Dany [id number] Juanpablo [id number] 2020-10-17 2020-10-17 Outpatient Esequiel [facility] [id number] 00:00:00 00:00:00 Dany [id number] Juanpablo [id number] 2020-09-23 2020-09-23 Outpatient Esequiel [facility] [id number] 00:00:00 00:00:00 Dany [id number] Juanpablo [id number] 2020-09-08 2020-09-08 Outpatient Esequiel [facility] [id number] 00:00:00 00:00:00 Dany [id number] Juanpablo [id number] [...] SOURCE(BEAKER) (test code = 2795) Urine, Voided [id number] 13:11:00 Test Item Value Reference Range Interpretation Comments LIPASE (BEAKER) (test code = 749) 45 U/L 8-78 BASIC METABOLIC [id number] 13:11:00 Test Item Value Reference Range Interpretation [...] APPLICABLE FOR DIALYSIS PATIEN TS. HEPATIC FUNCTION [id number] 13:11:00 Test Item Value Reference Range Interpretation [...] (test code = 14 U/L 6-55 347) [id number] 13:02:00 Test Item Value Reference Range Interpretation [...] PERCENT (BEAKER) (test code = 2801) TISSUE [id number] 13:06:00Surgical Pathology Report Case: [id number] Authorizing Provider: Luiz Hayes Collected: 03/14/2018 1115 Ordering Location: [facility] Endoscopy Received: 03/14/2018 1351 Services Pathologist: Mara Barboza MD Specimens: A) -Polyp, Duodenum B) - Stomach, Antrum, bx C) - Biopsy, Gastric, gastric body D) - Biopsy, Esophagus, random THIS ADDENDUM IS ISSUED TO REPORT THE RESULT OF IMMUNOHISTOCHEMICAL STUDY FOR HELICOBACTER PYLORI OM SPECIMEN B: - NEGATIVE CPT CODE: [id number] electronically signed by Mara Barboza MD on [...] MALIGNANCY SEEN Signing Pathologist Direct Phone Line: [phone] signed by Mara Barboza MD on 03/17/2018 at 10:35 [id number] X 4; [id number] X 2A. Polyp, duodenum. B. Stomach antrum. [...] the diagnostic report above:AMBER X 2 POCT-GLUCOSE [id number] 12:41:00 Test Item Value Reference Range Interpretation Comments POC-GLUCOSE METER 75 mg/dL 70-110 TESTED AT [place] [address] ([facility]) (test code = [facility] [address] 1538) BLOOD [id number] 06:00:00 Test Item Value Reference Range Interpretation Comments CULTURE (BEAKER) (test No growth in 5 days code = 1095) BLOOD [id number] 06:00:00 Test Item Value Reference Range Interpretation Comments CULTURE (BEAKER) (test No growth in 5 days code = 1095) POCT-GLUCOSE [id number] 12:32:00 Test Item Value Reference Range Interpretation Comments POC-GLUCOSE METER 217 mg/dL 70-110 H TESTED AT [place] [address] ([facility]) (test code = [facility] 1538) [address] POCT-GLUCOSE [id number] 08:36:00 Test Item Value Reference Range Interpretation Comments POC-GLUCOSE METER 92 mg/dL 70-110 TESTED AT [place] [address] ([facility]) (test code = [facility] [address] 1538) COMPREHENSIVE METABOLIC [id number] 04:59:00 Test Item Value Reference Range Interpretation Comments TOTAL PROTEIN 5.2 gm/dL 6.0-8.3 L ([facility]) (test code = 770) ALBUMIN ([facility]) 3.0 g/dL 3.5-5.0 L (test code = [...] S NOT APPLICABLE FOR DIALYSIS PATIEN TS. [id number] 04:50:00 Test Item Value Reference Range Interpretation Comments MAGNESIUM (BEAKER) (test code = 1.7 mg/dL 1.6-2.6 627) PROTHROMBIN [id number] 04:35:00 Test Item Value Reference Range Interpretation [...] 417) IMMATURE GRANULOCYTES-RELATIVE 1 % 0-1 PERCENT ([facility]) (test code = 2801) POCT-GLUCOSE [id number] 22:13:00 Test Item Value Reference Range Interpretation Comments POC-GLUCOSE METER 194 mg/dL 70-110 H TESTED AT [place] [address] ([facility]) (test code = [facility] 1538) [address] POCT-GLUCOSE [id number] 18:14:00 Test Item Value Reference Range Interpretation Comments POC-GLUCOSE METER 195 mg/dL 70-110 H TESTED AT [place] [address] ([facility]) (test code = [facility] 1538) [address] POCT-GLUCOSE [id number] 12:20:00 Test Item Value Reference Range Interpretation Comments POC-GLUCOSE METER 224 mg/dL 70-110 H TESTED AT [place] [address] ([facility]) (test code = [facility] 1538) [address] [id number] 08:55:00 Test Item Value Reference Range Interpretation Comments LIPASE ([facility]) (test code = 749) 471 U/L 8-78 H POCT-GLUCOSE [id number] 08:12:00 Test Item Value Reference Range Interpretation Comments POC-GLUCOSE METER 128 mg/dL 70-110 H TESTED AT [place] [address] ([facility]) (test code = [facility] 1538) [address] [id number] 04:12:00 Test Item Value Reference Range Interpretation Comments T3 TOTAL ([facility]) (test code = 656) 41 ng/dL 48-159 L T3, [id number] 04:11:00 Test Item Value Reference Range Interpretation Comments T3 FREE ([facility]) (test code = 908) 1.31 pg/mL 1.71-3.71 L COMPREHENSIVE METABOLIC [id number] 04:01:00 Test Item Value Reference Range Interpretation Comments TOTAL PROTEIN 4.8 gm/dL 6.0-8.3 L ([facility]) (test code = 770) ALBUMIN ([facility]) 2.8 g/dL 3.5-5.0 L (test code = 1145) ALKALINE PHOSPHATASE 33 U/L 40-150 L ([facility]) (test code = 346) BILIRUBIN TOTAL 0.4 [...] S NOT APPLICABLE FOR DIALYSIS PATIEN TS. [id number] 03:54:00 Test Item Value Reference Range Interpretation Comments MAGNESIUM (BEAKER) (test code = 1.7 mg/dL 1.6-2.6 627) PROTHROMBIN [id number] 03:53:00 Test Item Value Reference Range Interpretation [...] % 0-1 PERCENT (BEAKER) (test code = 4911) POCT-GLUCOSE [id number] 22:34:00 Test Item Value Reference Range Interpretation Comments POC-GLUCOSE METER 252 mg/dL 70-110 H TESTED AT [facility] [address] ([facility]) (test code = [facility] 1538) [address] [id number] 19:36:00 Test Item Value Reference Range Interpretation Comments MAGNESIUM (BEAKER) (test code = 1.6 mg/dL 1.6-2.6 627) BASIC METABOLIC [id number] 19:36:00 Test Item Value Reference Range Interpretation [...] NOT APPLICABLE FOR DIALYSIS PATIEN TS. URINE [id number] 11:51:00 Test Item Value Reference Range Interpretation Comments CULTURE (BEAKER) (test code = 1095) No growth POCT-GLUCOSE [id number] 11:42:00 Test Item Value Reference Range Interpretation Comments POC-GLUCOSE METER 205 mg/dL 70-110 H TESTED AT [facility] [address] ([facility]) (test code = [facility] 1538) [address] POCT-GLUCOSE [id number] 08:08:00 Test Item Value Reference Range Interpretation Comments POC-GLUCOSE METER 119 mg/dL 70-110 H TESTED AT [facility] [address] ([facility]) (test code = [facility] 1538) [address] C. DIFFICILE GDH [id number] 07:40:00 Test Item Value Reference Range Interpretation Comments CDT TOXIN (test code Negative Negative = [id number]) CDT GDH ANTIGEN Positive Negative A C. difficile present but (test code = toxin not detec leesa. [id number]) Indicates colon ization with non-toxige lizbeth strain or level of tox in below detectable leve ls. No need for enteri c isolation. Duran atment is rarely needed ( only when strong clinical suspicion for Clostridium difficile infection) Testing performed by [employer] Rapid Cassette Assay. For GDH, published sensitivity of the assay is 98.7% compared to cytotoxicity testing. For Toxin AB, published sensitivity is 87.8% and specificity 99.4% compared to cytotoxicity testing.Verification of kit performance was done by the [facility] Microbiology Lab prior to clinical use.POCT-GLUCOSE [id number] 06:37:00 Test Item Value Reference Range Interpretation Comments POC-GLUCOSE METER 141 mg/dL 70-110 H TESTED AT [facility] [address] ([facility]) (test code = [place] 1538) [address] COMPREHENSIVE METABOLIC [id number] 04:48:00 Test Item Value Reference Range Interpretation [...] NOT APPLICABLE FOR DIALYSIS PATIEN TS. PROTHROMBIN [id number] 04:40:00 Test Item Value Reference Range Interpretation Comments PROTIME (BEAKER) (test code = 23.8 seconds 11.7-14.7 H 759) INR (BEAKER) (test code = 370) 2.1 <=5.9 RECOMMENDED COUMADIN/WARFARIN INR THERAPY RANGESSTANDARD DOSE: 2.0 - 3.0 Includes: PROPHYLAXIS forvenous thrombosis, systemic embolization; TREATMENT for venous thrombosis and/or pulmonary embolus.HIGH RISK: Target INR is 2.5-3.5 for patients with mechanical heart valves.While on warfarin.[id number] 04:29:00 Test Item Value Reference Range Interpretation Comments MAGNESIUM (BEAKER) (test code = 2.0 mg/dL 1.6-2.6 627) CBC W/PLT COUNT & AUTO [id number] 04:11:00 Test Item Value Reference Range Interpretation [...] PERCENT (BEAKER) (test code = 2801) POCT-GLUCOSE [id number] 22:19:00 Test Item Value Reference Range Interpretation Comments POC-GLUCOSE METER 266 mg/dL 70-110 H TESTED AT [facility] [address] (BEAKER) (test code = [place] 1538) [address] [id number] 17:54:00 Test Item Value Reference Range Interpretation Comments POTASSIUM (BEAKER) (test code = 4.2 meq/L 3.5-5.1 379) [id number] 17:23:00 Test Item Value Reference Range Interpretation Comments MAGNESIUM (BEAKER) (test code = 1.7 mg/dL 1.6-2.6 627) POCT-GLUCOSE [id number] 12:41:00 Test Item Value Reference Range Interpretation Comments POC-GLUCOSE METER 111 mg/dL 70-110 H TESTED AT [facility] [address] (BEAKER) (test code = [place] 1538) [address] [id number] 12:40:00 Test Item Value Reference Range Interpretation Comments POTASSIUM (BEAKER) (test code = 3.5 meq/L 3.5-5.1 379) POCT-GLUCOSE [id number] 10:05:00 Test Item Value Reference Range Interpretation Comments POC-GLUCOSE METER 94 mg/dL 70-110 TESTED AT [facility] [address] (BEAKER) (test code = [place] [address] 1538) COMPREHENSIVE METABOLIC [id number] 05:47:00 Test Item Value Reference Range Interpretation [...] S NOT APPLICABLE FOR DIALYSIS PATIEN TS. [id number] 05:44:00 Test Item Value Reference Range Interpretation Comments MAGNESIUM (BEAKER) (test code = 2.0 mg/dL 1.6-2.6 627) PROTHROMBIN [id number] 05:37:00 Test Item Value Reference Range Interpretation Comments PROTIME (BEAKER) (test code = 24.0 seconds 11.7-14.7 H 759) INR (BEAKER) (test code = 370) 2.2 <=5.9 RECOMMENDED COUMADIN/WARFARIN INR THERAPY RANGESSTANDARD DOSE: 2.0 - 3.0 Includes: PROPHYLAXIS forvenous thrombosis, systemic embolization; TREATMENT for venous thrombosis and/or pulmonary embolus.HIGH RISK: Target INR is 2.5-3.5 for patients with mechanical heart valves.PROTHROMBIN [id number] 05:36:00 Test Item Value Reference Range Interpretation [...] valves.While on warfarin.CBC W/PLT COUNT & AUTO [id number] 05:35:00 Test Item Value Reference Range Interpretation [...] PERCENT (BEAKER) (test code = 2801) POCT-GLUCOSE [id number] 23:56:00 Test Item Value Reference Range Interpretation Comments POC-GLUCOSE METER 105 mg/dL 70-110 TESTED AT [facility] [address] ([facility]) (test code = [place] 1538) [address] TROPONIN [id number] 13:02:00 Test Item Value Reference Range Interpretation [...] 0-100 H (test code = 700) POCT-GLUCOSE [id number] 12:18:00 Test Item Value Reference Range Interpretation Comments POC-GLUCOSE METER 175 mg/dL 70-110 H TESTED AT [facility] [address] (MATTHEW) (test code = [place] 1538) [address] U/S, ABDOMINAL, [id number] 10:23:00Abdomen limited area? Add comment if clarification [...] MDReport Verified Date/Time: 01/14/2018 10:23:02 Reading Location: [facility] B1 C013X Ortho Consult Reading Room T4, [id number] 08:42:00 Test Item Value Reference Range Interpretation Comments FREE T4 (BEAKER) (test code = 655) 0.83 ng/dL 0.70-1.48 POCT-GLUCOSE [id number] 08:37:00 Test Item Value Reference Range Interpretation Comments POC-GLUCOSE METER 161 mg/dL 70-110 H TESTED AT [facility] [address] ([facility]) (test code = [place] 1538) [address] TSH/FREE T4 IF [id number] 08:05:00 Test Item Value Reference Range Interpretation Comments THYROID STIMULATING HORMONE 0.02 uIU/mL 0.35-4.94 L (BEAKER) (test code = 772) VITAMIN B12 AND [id number] 07:42:00 Test Item Value Reference Range Interpretation Comments VITAMIN B12 (BEAKER) (test code = 1276 pg/mL 213-816 H 774) FOLATE (BEAKER) (test code = 362) 8.8 ng/mL >=7.0 LIPID [id number] 07:14:00 Test Item Value Reference Range Interpretation [...] Borderline 130-159 High 160-189 Very High >=190TROPONIN [id number] 07:12:00 Test Item Value Reference Range Interpretation [...] acute neurological disease, and persistent tachyarrhythmia.URINALYSIS W/ [id number] 06:35:00 Test Item Value Reference Range Interpretation [...] 517) SOURCE(BEAKER) (test code = Urine, [place] 5605) [id number] 06:07:00 Test Item Value Reference Range Interpretation Comments MAGNESIUM (BEAKER) (test code = 1.8 mg/dL 1.6-2.6 627) [id number] 05:32:00 Test Item Value Reference Range Interpretation Comments MAGNESIUM (BEAKER) (test code = 2.5 mg/dL 1.6-2.6 627) COMPREHENSIVE METABOLIC [id number] 05:32:00 Test Item Value Reference Range Interpretation [...] NOT APPLICABLE FOR DIALYSIS PATIEN TS. PROTHROMBIN [id number] 05:10:00 Test Item Value Reference Range Interpretation [...] 0-1 PERCENT (BEAKER) (test code = 2801) [id number] 02:52:00 Test Item Value Reference Range Interpretation Comments PROCALCITONIN (BEAKER) (test code 0.41 ng/mL <0.05 H = 3036) SEPSIS RISK (ng/mL)Low: 0.05-0.50Intermediate: 0.51-2.00High: >=2.01LACTIC ACID, VENOUS, WHOLE [id number] 02:06:00 Test Item Value Reference Range Interpretation Comments LACTATE BLOOD VENOUS 1.3 mmol/L 0.5-2.2 Specime n slightly (2) (BEAKER) (test hemolyzed code = 2872) Effective 01/07/2016: Units/Reference Range ChangeNew: 0.5-2.2 mmol/L Previous: 5-20 mg/dLCOMPREHENSIVE METABOLIC [id number] 02:06:00 Test Item Value Reference Range Interpretation [...] S NOT APPLICABLE FOR DIALYSIS PATIEN TS. [id number] 02:04:00 Test Item Value Reference Range Interpretation Comments LIPASE (BEAKER) (test code = 749) 730 U/L 8-78 H [id number] 02:04:00 Test Item Value Reference Range Interpretation Comments AMYLASE (BEAKER) (test code = 349) 226 U/L 25-125 H PROTHROMBIN [id number] 01:45:00 Test Item Value Reference Range Interpretation Comments PROTIME (BEAKER) (test code = 23.9 seconds 11.7-14.7 H 759) INR (BEAKER) (test code = 370) 2.1 <=5.9 RECOMMENDED COUMADIN/WARFARIN INR THERAPY RANGESSTANDARD DOSE: 2.0 - 3.0 Includes: PROPHYLAXIS forvenous thrombosis, systemic embolization; TREATMENT for venous thrombosis and/or pulmonary embolus.HIGH RISK: Target INR is 2.5-3.5 for patients with mechanical heart valves.[id number] 01:45:00 Test Item Value Reference Range Interpretation Comments PARTIAL THROMBOPLASTIN TIME 32.4 seconds 22.5-36.0 (BEAKER) (test code = 760) CBC W/PLT COUNT & AUTO [id number] 01:38:00 Test Item Value Reference Range Interpretation [...]
[2020-12-20 23:07] LABS: Absolute Lymphocytes (CBC) 2.1 K/uL (0.7-4.9); Basophils % 0.2 % (0-1.3); Lymphocytes % 25.5 % (15.3-44.8); MPV 9.2 fL (7.6-11.3); RBC Red Blood Cell Count 1.73 M/uL (3.86-4.86)
[2020-12-20 23:10] LABS: Hematocrit 16.4 % (36.0-45.0)
[2020-12-20 23:18] LABS: ALT/SGPT 12 U/L (12-78); AST/SGOT 14 U/L (15-37); Albumin 2.1 g/dL (3.4-5.0); Alkaline Phosphatase 83 U/L (45-117); BUN Blood Urea Nitrogen 45 mg/dL (7-18); Bicarbonate 24 mmol/L (21-32); Bilirubin Direct < 0.1 mg/dL (0-0.2); Bilirubin Total 0.2 mg/dL (0.2-1.0); Glucose Level 68 mg/dL (74-106); Potassium 3.7 mmol/L (3.5-5.1); Protein, Total 4.6 g/dL (6.4-8.2); Sodium Level 149 mmol/L (136-145)
[2020-12-20 23:19] LABS: Lipase 165 U/L (73-393)
[2020-12-20] MEDS ORDERED: NA CHLORIDE 0.9% 500 ML ONE (23:31)
[2020-12-20] MEDS ORDERED: NA CHLORIDE 0.9% 250 ML ONE (23:51)
[2020-12-20] MEDS ORDERED: ONDANSETRON 4 MG/2 ML VIAL ONE (23:51)
[2020-12-20] MEDS ORDERED: MORPHINE 2 MG/ML SYR ONE (23:51)
[2020-12-20] MEDS ORDERED: PANTOPRAZOLE 40 MG INJ ONE (23:51)
[2020-12-20 23:54] LABS: Protime INR 9.63
[2020-12-21] MEDS ORDERED: VITAMIN K (ADULT) 10 MG/ML ONE (00:42)
[2020-12-21] MEDS ORDERED: NA CHLORIDE 0.9% 200 ML ONE (00:47)
[2020-12-21] MEDS ORDERED: METRONIDAZOLE 500mg IVPB 500 MG/100 ML BAG IV ONE (01:10)
[2020-12-21] MEDS ORDERED: CEFTRIAXONE/SWI 1gm 1 GM/10 ML SYR ONE (01:35)
[2020-12-21] MEDS ORDERED: MORPHINE 2 MG/ML SYR ONE (01:35)
--- NOTE | 2020-12-21 01:52 | ER ---
Nurse's Notes [facility] Name: Emelia Payan Age: 80 yrs Sex: Female : 1940 Arrival Date: 12/20/2020 Time: 22:04 Bed 7 Private MD: Diagnosis: Lower GI Bleed;Diverticulitis;Coagulopathy Presentation: 12/20 22:12 Chief complaint: EMS states: Called for patient with constipation x 3 days; reports lp1 lower abdominal pain, denies vomiting; recent surgical procedure on 12/12/20, given Tylenol #3 and has been taking every 4-6 hours. Coronavirus screen: Client denies travel out of the [place] in the last 14 days. At this time, the client does not indicate any symptoms associated with coronavirus-19. Ebola Screen: No symptoms or risks identified at this time. Initial Sepsis Screen: Does the patient meet any 2 criteria? No. Patient's initial sepsis screen is negative. Does the patient have a suspected source of infection? No. Patient's initial sepsis screen is negative. Risk Assessment: Do you want to hurt yourself or someone else? Patient reports no desire to harm self or others. Onset of symptoms was December 20, 2020. 22:12 Method Of Arrival: EMS: [facility] lp1 22:12 Acuity: EDIS 3 lp1 22:21 Care prior to arrival: IV initiated. 20 GA, in the left antecubital area. lp1 Historical: - Allergies: 22:20 Bactrim; lp1 22:20 Cipro; lp1 22:20 Xarelto; lp1 22:20 Zosyn; lp1 - PMHx: 22:20 adrenal insuficiency; Anxiety; Atrial Fib; CHF; CVA; Diabetes - IDDM; DVT; lp1 Hyperlipidemia; Hypertension; Hypothyroidism; Pancreatitis; lymphedema; - PSHx: 22:20 Appendectomy; Hysterectomy; Pituitary gland removal; lp1 - Immunization history:: Adult Immunizations up to date. - Social history:: Smoking status: Patient denies any tobacco usage or history of. Screenin/18 00:01 Abuse screen: Denies threats or abuse. Denies injuries from another. Nutritional lp1 screening: No deficits noted. Tuberculosis screening: No symptoms or risk factors identified. Fall Risk Total Dickens Fall Scale indicates High Risk Score (45 or more points). Fall prevention measures have been instituted. Side Rails Up X 2 As available patient and family educated on Fall Prevention Program and Strategies. Assessment: 12/20 22:30 General: Appears in no apparent distress. Behavior is calm. Pain: Complains of pain in lp1 right lower quadrant and left lower quadrant Pain currently is 8 out of 10 on a pain scale. Neuro: Level of Consciousness is awake, alert, obeys commands, Oriented to person, place, situation. Cardiovascular: Patient's skin is warm and dry. Respiratory: Respiratory effort is even, unlabored. GI: Abdomen is round Bowel sounds present X 4 quads. Abd is soft and non tender X 4 quads. Reports constipation. : No signs and/or symptoms were reported regarding the genitourinary system. EENT: No signs and/or symptoms were reported regarding the EENT system. Derm: Skin is fragile, is thin, Skin is dry, Skin is pale. Musculoskeletal: No deficits noted. 12/21 00:15 Reassessment: PATIENT IS ALERT AND ORIENTED. UPDATED ON THE PLAN OF CARE. rv 00:31 Reassessment: [phone], [phone] - DICK PAYAN (). rv 02:24 Reassessment: REPORT GIVEN TO [facility]. rv Vital Signs: 12/20 22:12 BP 116 / 53; Pulse 81; Resp 18; Temp 98.9(O); Pulse Ox 100% on R/A; Weight 71.67 kg lp1 (R); Pain 8/10; 22:30 BP 104 / 60; Pulse 84; Resp 17; Pulse Ox 97% on R/A; lp1 23:30 BP 119 / 54; Pulse 76; Resp 15; Pulse Ox 100% on R/A; lp1 12/21 01:00 BP 110 / 47; Pulse 76; Resp 15; Pulse Ox 100% on R/A; rv 02:00 BP 106 / 61; Pulse 81; Resp 21; Temp 98.1(O); Pulse Ox 100% ; rv 03:00 BP 108 / 50; Pulse 78; Resp 14; Pulse Ox 100% on R/A; rv 03:30 BP 98 / 45; Pulse 81; Resp 14; Pulse Ox 100% on R/A; rv ED Course: 12/20 22:00 Maintain EMS IV. Dressing intact. Good blood return noted. Site clean \T\ dry. Gauge \T\ rv site: G20 LAC. 22:04 Patient arrived in ED. lp1 22:12 Salud Sinha, ODILON is Primary Nurse. lp1 22:16 Elmer Murillo MD is Attending Physician. [facility] 22:18 Triage completed. lp1 22:18 Arm band placed on right wrist. lp1 22:30 Patient has correct armband on for positive identification. Bed in low position. Call lp1 light in reach. Side rails up X2. industrial eng on. Pulse ox on. NIBP on. 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 digital disimpaction. lp1 12/21 00:14 CT Abd/Pelvis - IV Contrast Only In Process Unspecified. EDMS 00:14 Inserted saline lock: 22 gauge in left forearm, using aseptic technique. rv 00:32 Consent for blood and/or blood product transfusion explained by physician, signed by rv spouse. 00:58 Initiated transfer with Silvana Lake at [facility]. Transfer currently on hold and was tt3 instructed to call back with a repeat H/H. 01:07 [facility]iated transfer at [facility] with Kiesha De La Rosa. Stated she would do a bed check and call tt3 back. 01:30 Kiesha De La Rosa called back with their physician to speak with Dr. Murillo regarding the tt3 transfer request. 01:43 Kiesha De La Rosa called back with admin approval. The pt is going to [facility], [id number]. The accepting physician is Dr. Markham. Nurse to call report to . Face sheet faxed to per Kiesha's request. 01:50 Updated Silvana Lake at [facility] on pts acceptance at [facility]. Transfer request at [address] was cancelled. 03:52 Report given to [facility]. rv 03:54 IV is patent, with fluids infusing freely, Patient transferred, IV remains in place. rv Administered Medications: 12/20 23:30 Drug: NS 0.9% 500 ml Route: IV; Rate: bolus; Site: right antecubital; rv 12/21 01:57 Follow up: IV Status: Completed infusion; IV Intake: 500ml rv 12/20 23:55 Drug: morphine 2 mg Route: IVP; Site: left antecubital; rv 23:56 Drug: Zofran (Ondansetron) 4 mg Route: IVP; Site: left antecubital; rv 12/21 01:58 Follow up: Response: No adverse reaction rv 12/20 23:56 Drug: ProTONIX 80 mg Route: IVP; Site: left antecubital; rv 12/21 01:58 Follow up: Response: No adverse reaction rv 12/20 23:56 Drug: ProTONIX 8 mg/hr Route: IV; Rate: 25 ml/hr; Site: left antecubital; rv 12/21 03:55 Follow up: IV Status: Infusion continued upon transfer rv 00:30 Drug: Vitamin K1 10 mg Route: IM; Site: right deltoid; rv 01:58 Follow up: Response: No adverse reaction rv 01:08 Drug: Flagyl (metroNIDAZOLE) 500 mg Volume: 100 ml; Route: IVPB; Rate: 200 ml/hr; rv Infused Over: 30 mins; Site: left antecubital; 01:30 Follow up: IV Status: Completed infusion; IV Intake: 250ml rv 01:31 Drug: Rocephin (cefTRIAXone) 1 grams Route: IV; Rate: per protocol; Site: left rv antecubital; 01:58 Follow up: IV Status: Completed infusion rv 01:57 Drug: morphine 2 mg Route: IVP; Site: left antecubital; rv 01:57 Follow up: Response: No adverse reaction; RASS: Alert and Calm (0) rv Medication: 03:52 Blood products: PRBCs X 2 units given. See transfusion record. rv Intake: 01:30 IV: 250ml; Total: 250ml. rv 01:57 IV: 500ml; Total: 750ml. rv Outcome: 01:52 ER care complete, transfer ordered by [facility] 03:54 Transferred by ground EMS Transfer form completed. X-rays sent w/ patient. rv 03:54 Condition: good 03:54 Instructed on the need for transfer. 03:55 Patient left the ED. rv Signatures: Dispatcher [employer] EDMS Salud Sinha RN RN 1 Lee Delgado RN RN rv Elmer Murillo MD MD 7 Jovon Somers tt3
--- NOTE | 2020-12-21 01:52 | EDPHYS ---
Physician Documentation [facility] Name: Emelia Payan Age: 80 yrs Sex: Female : 1940 Arrival Date: 12/20/2020 Time: 22:04 Bed 7 Private MD: ED Physician Elemr Murillo HPI: 12/21 00:07 This 80 yrs old Female presents to ER via EMS with complaints of mh7 Constipation. Abdominal Pain. 00:07 The patient presents with abdominal pain in the lower abdomen, Constipation. Onset: The mh7 symptoms/episode began/occurred 3 day(s) ago. The symptoms do not radiate. 00:08 Associated signs and symptoms: Pertinent positives: constipation, Pertinent negatives: mh7 nausea, vomiting, and diarrhea, nausea and vomiting, anorexia, blood in stools, chest pain, diarrhea, dysuria, fever, headache, hematuria, nausea, palpitations, shortness of breath, vaginal discharge, vomiting, vomiting blood. The symptoms are described as intermittent, vague, waxing/waning. Modifying factors: The symptoms are alleviated by nothing, the symptoms are aggravated by nothing. Severity of pain: At its worst the pain was moderate yesterday, in the emergency department the pain has improved moderately. Historical: - Allergies: 12/20 22:20 Bactrim; lp1 22:20 Cipro; lp1 22:20 Xarelto; lp1 22:20 Zosyn; lp1 - PMHx: 22:20 adrenal insuficiency; Anxiety; Atrial Fib; CHF; CVA; Diabetes - IDDM; DVT; lp1 Hyperlipidemia; Hypertension; Hypothyroidism; Pancreatitis; lymphedema; - PSHx: 22:20 Appendectomy; Hysterectomy; Pituitary gland removal; lp1 - Immunization history:: Adult Immunizations up to date. - Social history:: Smoking status: Patient denies any tobacco usage or history of. ROS: 12/21 00:08 Constitutional: Negative for fever, chills, and weight loss, Eyes: Negative for injury, mh7 pain, redness, and discharge, ENT: Negative for injury, pain, and discharge, Neck: Negative for injury, pain, and swelling, Cardiovascular: Negative for chest pain, palpitations, and edema, Respiratory: Negative for shortness of breath, cough, wheezing, and pleuritic chest pain, Back: Negative for injury and pain, : Negative for injury, bleeding, discharge, and swelling, MS/Extremity: Negative for injury and deformity, Skin: Negative for injury, rash, and discoloration, Neuro: Negative for headache, weakness, numbness, tingling, and seizure, Psych: Negative for depression, anxiety, suicide ideation, homicidal ideation, and hallucinations, Allergy/Immunology: Negative for hives, rash, and allergies, Endocrine: Negative for neck swelling, polydipsia, polyuria, polyphagia, and marked weight changes, Hematologic/Lymphatic: Negative for swollen nodes, abnormal bleeding, and unusual bruising. Exam: 00:08 Constitutional: This is a well developed, well nourished patient who is awake, alert, mh7 and in no acute distress. Head/Face: Normocephalic, atraumatic. Eyes: Pupils equal round and reactive to light, extra-ocular motions intact. Lids and lashes normal. Conjunctiva and sclera are non-icteric and not injected. Cornea within normal limits. Periorbital areas with no swelling, redness, or edema. Neck: Trachea midline, no thyromegaly or masses palpated, and no cervical lymphadenopathy. Supple, full range of motion without nuchal rigidity, or vertebral point tenderness. No Meningismus. Chest/axilla: Normal chest wall appearance and motion. Nontender with no deformity. No lesions are appreciated. Cardiovascular: Regular rate and rhythm with a normal S1 and S2. No gallops, murmurs, or rubs. Normal PMI, no JVD. No pulse deficits. Respiratory: Lungs have equal breath sounds bilaterally, clear to auscultation and percussion. No rales, rhonchi or wheezes noted. No increased work of breathing, no retractions or nasal flaring. 00:08 Back: No spinal tenderness. No costovertebral tenderness. Full range of motion. Skin: Warm, dry with normal turgor. Normal color with no rashes, no lesions, and no evidence of cellulitis. MS/ Extremity: Pulses equal, no cyanosis. Neurovascular intact. Full, normal range of motion. Neuro: Awake and alert, GCS 15, oriented to person, place, time, and situation. Cranial nerves II-XII grossly intact. Motor strength 5/5 in all extremities. Sensory grossly intact. Cerebellar exam normal. Normal gait. Psych: Awake, alert, with orientation to person, place and time. Behavior, mood, and affect are within normal limits. 00:08 Abdomen/GI: Inspection: obese Bowel sounds: normal, in all quadrants, Palpation: moderate abdominal tenderness, in the suprapubic area, right lower quadrant and left lower quadrant, Rectal exam: rectal tone normal, Stool: brown, guaiac positive, hemorrhoid(s), are not appreciated, mass, is not appreciated, swelling, is not appreciated, tenderness, is not appreciated, fecal impaction, that is moderate, the exam is chaperoned by the nurse, Indicators: McBurney's point is not tender, Ricks's sign is negative, Rovsing's sign is negative, Obturator sign is negative, Psoas sign is negative, Liver: no appreciated palpable abnormalities, Hernia: not appreciated. Vital Signs: 12/20 22:12 BP 116 / 53; Pulse 81; Resp 18; Temp 98.9(O); Pulse Ox 100% on R/A; Weight 71.67 kg lp1 (R); Pain 8/10; 22:30 BP 104 / 60; Pulse 84; Resp 17; Pulse Ox 97% on R/A; lp1 23:30 BP 119 / 54; Pulse 76; Resp 15; Pulse Ox 100% on R/A; lp1 12/21 01:00 BP 110 / 47; Pulse 76; Resp 15; Pulse Ox 100% on R/A; rv 02:00 BP 106 / 61; Pulse 81; Resp 21; Temp 98.1(O); Pulse Ox 100% ; rv 03:00 BP 108 / 50; Pulse 78; Resp 14; Pulse Ox 100% on R/A; rv 03:30 BP 98 / 45; Pulse 81; Resp 14; Pulse Ox 100% on R/A; rv MDM: 01:48 Differential diagnosis: bowel obstruction, diverticulitis, GI Bleed, non-specific abd mh7 pain, urinary tract infection. Data reviewed: vital signs, nurses notes, old medical records, lab test result(s), CBC, electrolytes, urinalysis. Data interpreted: Pulse oximetry: on room air is 100 %. Interpretation: normal. Counseling: I had a detailed discussion with the patient and/or guardian regarding: the historical points, exam findings, and any diagnostic results supporting the discharge/admit diagnosis, lab results, radiology results, the need to transfer to another facility, for higher level of care, [facility] does not immediately have the required specialist. Response to treatment: the patient's symptoms have mildly improved after treatment. 01:52 Patient medically screened. [facility] 12/20 22:26 Order name: Basic Metabolic Panel [facility] 12/20 22:26 Order name: CBC with Diff; Complete Time: 23:13 [facility] 12/20 22:26 Order name: Hepatic Function [facility] 12/20 22:26 Order name: Lipase; Complete Time: 00:01 [facility] 12/20 22:26 Order name: Basic Metabolic Panel; Complete Time: 00:01 [facility] 12/20 22:26 Order name: Liver (Hepatic) Function; Complete Time: 00:01 [facility] 12/20 22:59 Order name: Protime (+inr) [facility] 12/20 22:59 Order name: Ptt, Activated [facility] 12/20 22:59 Order name: Protime (+INR); Complete Time: 00:01 [facility] 12/20 22:59 Order name: PTT, Activated Partial Thromb; Complete Time: 00:01 [facility] 12/20 23:12 Order name: Type And Screen [facility] 12/20 23:15 Order name: PRBC [facility] 12/20 23:16 Order name: ABO/RH typing [facility] 12/20 22:26 Order name: IV Saline Lock; Complete Time: 22:26 [facility] 12/20 22:26 Order name: Labs collected and sent; Complete Time: 22:39 [facility] 12/20 23:12 Order name: CT Abd/Pelvis - IV Contrast Only [facility] 12/20 23:16 Order name: Antibody Screen [facility] 12/21 01:03 Order name: SARS-COV-2 RT PCR; Complete Time: 01:13 [facility] 12/20 22:58 Order name: EKG - Nurse/Tech; Complete Time: 23:27 [facility] Administered Medications: 12/20 23:30 Drug: NS 0.9% 500 ml Route: IV; Rate: bolus; Site: right antecubital; rv 12/21 01:57 Follow up: IV Status: Completed infusion; IV Intake: 500ml 12/20 23:55 Drug: morphine 2 mg Route: IVP; Site: left antecubital; rv 23:56 Drug: Zofran (Ondansetron) 4 mg Route: IVP; Site: left antecubital; rv 12/21 01:58 Follow up: Response: No adverse reaction rv 12/20 23:56 Drug: ProTONIX 80 mg Route: IVP; Site: left antecubital; rv 12/21 01:58 Follow up: Response: No adverse reaction rv 12/20 23:56 Drug: ProTONIX 8 mg/hr Route: IV; Rate: 25 ml/hr; Site: left antecubital; rv 12/21 03:55 Follow up: IV Status: Infusion continued upon transfer rv 00:30 Drug: Vitamin K1 10 mg Route: IM; Site: right deltoid; rv 01:58 Follow up: Response: No adverse reaction rv 01:08 Drug: Flagyl (metroNIDAZOLE) 500 mg Volume: 100 ml; Route: IVPB; Rate: 200 ml/hr; rv Infused Over: 30 mins; Site: left antecubital; 01:30 Follow up: IV Status: Completed infusion; IV Intake: 250ml rv 01:31 Drug: Rocephin (cefTRIAXone) 1 grams Route: IV; Rate: per protocol; Site: left rv antecubital; 01:58 Follow up: IV Status: Completed infusion rv 01:57 Drug: morphine 2 mg Route: IVP; Site: left antecubital; rv 01:57 Follow up: Response: No adverse reaction; RASS: Alert and Calm (0) rv Disposition: 12/21/20 01:52 Transfer ordered to [facility]. Diagnosis are Lower GI Bleed, Diverticulitis, Coagulopathy. - Reason for transfer: Higher level of care. - Accepting physician is Dr. Markham. - Condition is Stable. - Problem is new. - Symptoms have improved. Signatures: Dispatcher [employer] EDMS Salud Sinha, RN RN lp1 Lee Delgado RN RN rv Elmer Murillo MD MD mh7 Corrections: (The following items were deleted from the chart) 12/20 23:34 23:12 Type and Screen ordered. EDMN EDMS 12/21 00:14 12/20 22:59 Abdomen Pelvis W Con+CT.RAD.BRZ ordered. EDMS EDMS 12/21 00:17 12/20 23:58 CORONAVIRUS+MR.LAB.BRZ ordered. EDMS EDMS 12/21 03:55 01:52 12/21/2020 01:52 Transfer ordered to [facility]. Diagnosis is Lower GI Bleed; rv Diverticulitis; Coagulopathy. Reason for transfer: Higher level of care. Accepting physician is Dr. Markham. Condition is Stable. Problem is new. Symptoms have improved. mh7
[2020-12-21 04:11] VITALS: O2SAT 100
[2020-12-21 04:14] VITALS: TEMP 98.1
[2020-12-21 04:16] VITALS: BP 98/45
--- NOTE | 2020-12-22 12:03 | RAD REPORT ---
EXAM DESCRIPTION: CT - Abdomen Pelvis W Contrast - 12/21/2020 6:30 am COMPARISON: CT chest abdomen pelvis May 25, 2020 CLINICAL HISTORY: [facility] MAIN Abd pain;Constipation TECHNIQUE: CT of the abdomen and pelvis was acquired with IV contrast material. Coronal and sagitt al reconstructions were obtained. Automated exposure control was utilized on this examination as a dose lowering technique. FINDINGS: Lung bases: Clear. Liver: Hepatic hypodensities favoring benign cysts or hemangiomas measure up to 2.2 cm. A subcapsular calcification is noted in right hepatic dome. Gallbladder and biliary: Decompressed gallbladder. Unremarkable biliary tree. Pancreas: Normal. Spleen: Normal. Adrenal glands: Normal adrenal glands. Kidneys: A small left renal cyst is noted. Otherwise, unremarkable kidneys. Stomach and Small Bowel: The stomach and small bowel are normal. Urinary bladder: Normal. Uterus and Adnexa: Hysterectomy. Colon and Appendix: Severe sigmoid diverticulosis is present. Moderate diverticulosis is present thro ughout the remainder of the colon. There is focal diverticular inflammation of the inferior descendin g/sigmoid colon on series 501 image 56. A large stool burden is present. No evidence of appendicitis. Retroperitoneum and lymph nodes: Normal. Vascular: Moderate calcified multivessel atherosclerosis. Peritoneal cavity: No ascites or free air. Musculoskeletal and soft tissues: There is skin thinning over the sacrum. Osseous demineralization is present. Lumbar spondylosis is noted. There are chronic L3 and L4 compression fractures with augment ation. There is 3 mm retrolisthesis L1 on L2, 3 mm anterolisthesis L3 on L4, and 4 mm anterolisthesis L4 on L5. A stable chronic nonaggressive appearing cystic lucency of the right ilium measures 1.8 cm . A stable chronic nonaggressive appearing sclerotic lesion of the left sacrum measures 8 mm. IMPRESSION: 1. Acute uncomplicated sigmoid diverticulitis with constipation. 2. Moderate atherosclerosis. 3. Osseous demineralization with chronic compression fractures. 4. Skin thickening over the sacrum could represent an early decubitus ulcer formation. Electronically signed by: Last Hayes MD 12/21/2020 12:23 AM CDT Due to temporary technical issues with the PACS/Fluency reporting system, reports are being signed by the in house radiologist without review as a courtesy to ensure prompt reporting. The interpreting r adiologist is fully responsible for the content of the report.
[2020-12-22 12:04] LABS: Urine Blood 1+ (Negative); Urine Glucose NEGATIVE (Negative); Urine Protein NEGATIVE (Negative); Urine Specific Gravity 1.015 (1.005-1.030)
[2020-12-23 14:48] LABS: Urine Blood 1+ (Negative); Urine Glucose Negative (Negative); Urine Protein Negative (Negative); Urine Specific Gravity 1.015 (1.005-1.030)
== END 2020-12-21 03:55 | disposition short-term general hospital (02) ==
LOC: ER 21:59
PROC: 30233N1 Transfusion of Nonautologous Red Blood Cells into Peripheral Vein, Percutaneous Approach (ICD-10-PCS; principal; 2020-12-21)
DX: K57.32 Diverticulitis of large intestine without perforation or abscess without bleeding (principal); D68.9 Coagulation defect, unspecified; I10 Essential (primary) hypertension; Z20.822 Contact with and (suspected) exposure to COVID-19; Z88.1 Allergy status to other antibiotic agents; Z88.8 Allergy status to other drugs, medicaments and biological substances
CPT/HCPCS: 96365; 96367; 85025; 80048; 36415; 86900; 86850; 85610; 86901; 80076; 85730; 81003; 83690; 74177; 36430 ×2; 96375; 96372; 99285; 96366; U0003; Q9967; J3430; C9113; J2270 ×2; J0696; P9016 ×2; J7050; J7040; J2405

== ENCOUNTER 2021-03-10 13:56 | Emergency (ER) | payer OTHER ==
--- OUTSIDE RECORDS SUMMARY | 2021-03-10 14:06 | XMS REPORT | Continuity of Care Document ---
:1940 Author Organization [facility] t Address [address] [place] [address] Care Team Providers Name Role Phone Juanpablo Iraheta MD Primary Care Physician Doctor Unassigned, Name Attending Clinician Unavailable Kadeem DONALD, A Attending Clinician Unavailable Hernando STRATTON, Sherin Attending Clinician Abril STRATTON, P Attending Clinician Omar Bailon MD, J Attending Clinician Mesha Palomino MD Attending Clinician Juanpablo Iraheta Attending Clinician [phone] RODNEY DEL ROSARIO Attending Clinician Unavailable LETTY HAYES Attending Clinician Unavailable ARLENE SANDOVAL Attending Clinician Unavailable Mesha Palomino MD Admitting Clinician LETTY HAYES Admitting Clinician Unavailable ARLENE SANDOVAL Admitting Clinician Unavailable Problems Condition Condition Condition Status Onset Resolution Last Treating Co mments Source Name Details Category Date Date Treatment Clinician Date Pancreatit Pancreatit Disease Active [facility] [place] Sepsis Sepsis Disease Active [facility] [place] Paroxysmal Paroxysmal Disease Active [facility] A-fib [facility]-fib [facility] Allergies, Adverse Reactions, Alerts Allergy Allergy Status Severity Reaction(s) Onset Inactive Treating Comm ents Source Name Type Date Date Clinician Jani Merritti Active [facility]ching [facility] - adverse [facility]:00: Medical reaction 00 Center s [place] Drug Active Other (See Internal [facility] ban Intolera Comments) 01-14 bleeding [facility] - nce 00:00: Medical 00 Center Family History Family Member Diagnosis Comments Start Date Stop Date Source Natural father Heart disease [facility] Natural mother Heart disease [facility] Social History Social Habit Start Date Stop Date Quantity Comments Source Sex Assigned [facility] Tobacco use and 2018-11-09 2018-11-09 Never used [facility] exposure 00:00:00 00:00:00 [facility] Alcohol intake 2018-11-09 2018-11-09 Current [facility] es - 00:00:00 00:00:00 non-drinker of Medical nt alcohol (finding) Smoking Status Start Date Stop Date Source Never smoker [facility] Medications Ordered Filled Start Stop Current Ordering Indication Dosage Frequency Signature Comments Components Source Medication Medication Date Date Medication? Clinician (SIG) Name Name cholecalcif Yes [id number] Take [facility], 3-07 50,000 [facility] - vitamin D3, 12:12: Units by Fl dical 50,000 unit 28 mouth once Ce [...] 40 MG 12:12: daily. Medical capsule 28 Center potassium Yes 10meq QD Take 10 [facility] [...] morning on tablet an empty stomach. amLODIPine Yes 5mg QD Take [address] (NORVASC) 5 3-07 by mouth Luke s - MG tablet 12:12: daily. Medica l 27 [place] losartan Yes 100mg QD Take [address] (COZAAR) 3-07 mg by [facility] - 100 MG 12:12: mouth Medical tablet 27 daily. Center methscopola Yes 5mg QD Take [address] mine 3-07 by mouth [facility] - (PAMINE 12:12: nightly. Medica l FORTE) 5 MG 27 Center tablet glipiZIDE Yes 5mg QD Take [address] (GLUCOTROL 5-16 tablets (5 [facility] es - XL) 2.5 MG 00:00: mg total) Me dical 24 hr 00 by mouth Center tablet daily. warfarin Yes 2.5mg QD Take 2.[address] (COUMADIN) 4-25 mg by [facility] - 2.5 MG 00:00: mouth Medical tablet 00 daily . Center gabapentin Yes 600mg Q.[id number] Take [address] (NEURONTIN) 4-16 [id number] mg by L ukes - 600 MG [...] 00:00:00 (1 of 1 - Medical Center ZZTM30_Ckugyty PCV13) [code = PNEUMOCOCCAL 65+ YRS (1 of 1 - PJJQ51_Aoxjori PCV13)] Encounters Start End Encounter Admission Attending Care Care Encounter Source Date/Time Date/Time Type Type Clinicians Facility Department ID 2021-02-20 2021-02-20 Orders Doctor MEYERS [id number] 00:00:00 00:00:00 Only UnassignedPABLO [id number] [place] [facility] 4.2.7.2.686 [id number] 2021-01-21 2021-01-21 Orders Doctor MEYERS [id number] 00:00:00 00:00:00 Only Unassigned, PABLO [id number] [place] [facility] 4.2.7.2.686 [id number] 2021-01-08 2021-01-08 Orders Doctor MEYERS [id number] 00:00:00 00:00:00 Only Unassigned, PABLO [id number] [place] [facility] 4.2.7.2.686 [id number] 2021-01-05 2021-01-05 Transition Doyle Quan 1.2.840.114 [id number] 00:00:00 00:00:00 of Care Todd Del Angel [id number] Ricardo 4.2.7.2.686 [id number] 2020-12-21 2021-01-02 [facility] Latoya Villagomez 1.2.8 40.114 [id number] 05:34:00 18:49:00 Encounter Abril Fabrizio P Pablo 350.1.13.10 [facility] 4.2.7.2.686 HimanshuTiesha reyes [id number] 2020-12-27 2020-12-27 Surgery Dacia 1.2.840.114 [id number] 14:55:00 16:17:00 Pablo 350.1.13.10 [facility] 4.2.7.2.686 [id number] 2020-12-22 2020-12-22 Surgery [facility] 1.2.203.428 [id number] 10:40:00 11:14:00 ICAL 350.1.13.10 [facility] 4.2.7.2.686 [facility] [id number] 2020-12-19 2020-12-19 Outpatient Esequiel [facility] [id number] 00:00:00 00:00:00 Dany [id number] Juanpablo [id number] 2020-11-17 2020-11-17 [facility] [id number] 00:00:00 00:00:00 Dany [id number] Juanpablo [id number] 2020-11-10 2020-11-10 Outpatient Esequiel [facility] [id number] 00:00:00 00:00:00 Dany [id number] Juanpablo [id number] 2020-10-27 2020-10-27 [facility] [id number] 00:00:00 00:00:00 Dany [id number] Juanpablo [id number] 2020-10-27 2020-10-27 Outpatient Esequiel [facility] [id number] 00:00:00 00:00:00 Dany [id number] Juanpablo [id number] 2020-10-17 2020-10-17 Outpatient Esequiel [facility] [id number] 00:00:00 00:00:00 Dany [id number] Juanpablo [id number] 2020-09-23 2020-09-23 Outpatient Esequiel [facility] [id number] 00:00:00 00:00:00 Dany [id number] Juanpablo [id number] 2020-09-08 2020-09-08 Outpatient Esequiel [facility] [id number] 00:00:00 00:00:00 Dany [id number] Juanpablo [id number] [...] SOURCE(BEAKER) (test code = 2795) Urine, Voided [id number] 13:11:00 Test Item Value Reference Range Interpretation Comments LIPASE (BEAKER) (test code = 749) 45 U/L 8-78 BASIC METABOLIC [id number] 13:11:00 Test Item Value Reference Range Interpretation [...] APPLICABLE FOR DIALYSIS PATIEN TS. HEPATIC FUNCTION [id number] 13:11:00 Test Item Value Reference Range Interpretation [...] (test code = 14 U/L 6-55 347) [id number] 13:02:00 Test Item Value Reference Range Interpretation [...] PERCENT (BEAKER) (test code = 2801) TISSUE [id number] 13:06:00Surgical Pathology Report Case: [id number] Authorizing Provider: Luiz Hayes Collected: 03/14/2018 1115 Ordering Location: [facility] Endoscopy Received: 03/14/2018 1351 Services Pathologist: Mara Barobza MD Specimens: A) -Polyp, Duodenum B) - Stomach, Antrum, bx C) - Biopsy, Gastric, gastric body D) - Biopsy, Esophagus, random THIS ADDENDUM IS ISSUED TO REPORT THE RESULT OF IMMUNOHISTOCHEMICAL STUDY FOR HELICOBACTER PYLORI OM SPECIMEN B: - NEGATIVE CPT CODE: [id number] electronically signed by Mara Barboza MD on [...] MALIGNANCY SEEN Signing Pathologist Direct Phone Line: [phone] signed by Mara Barboza MD on 03/17/2018 at 10:35 [id number] X 4; [id number] X 2A. Polyp, duodenum. B. Stomach antrum. [...] the diagnostic report above:AMBER X 2 POCT-GLUCOSE [id number] 12:41:00 Test Item Value Reference Range Interpretation Comments POC-GLUCOSE METER 75 mg/dL 70-110 TESTED AT [place] [address] ([facility]) (test [facility] = [facility] [address] 1538) BLOOD [id number] 06:00:00 Test Item Value Reference Range Interpretation Comments CULTURE ([facility]) (test No growth in 5 days code = 1095) BLOOD [id number] 06:00:00 Test Item Value Reference Range Interpretation Comments CULTURE ([facility]) (test No growth in 5 days code = 1095) POCT-GLUCOSE [id number] 12:32:00 Test Item Value Reference Range Interpretation Comments POC-GLUCOSE METER 217 mg/dL 70-110 H TESTED AT [place] [address] ([facility]) (test code = [place] Kay[place] 1538) [address] POCT-GLUCOSE [id number] 08:36:00 Test Item Value Reference Range Interpretation Comments POC-GLUCOSE METER 92 mg/dL 70-[address] [facility] [address] ([facility]) (test code = MICAH Kaye [facility] [address] 1538) COMPREHENSIVE METABOLIC [id number] 04:59:00 Test Item Value Reference Range Interpretation [...] S NOT APPLICABLE FOR DIALYSIS PATIEN TS. [id number] 04:50:00 Test Item Value Reference Range Interpretation Comments MAGNESIUM (BEAKER) (test code = 1.7 mg/dL 1.6-2.6 627) PROTHROMBIN [id number] 04:35:00 Test Item Value Reference Range Interpretation [...] 417) IMMATURE GRANULOCYTES-RELATIVE 1 % 0-1 PERCENT (AKER) (test code = 2801) POCT-GLUCOSE [id number] 22:13:00 Test Item Value Reference Range Interpretation Comments POC-GLUCOSE METER 194 mg/dL 70-110 H TESTED AT [place] [address] ([facility]) (test code = [facility] 1538) [address] POCT-GLUCOSE [id number] 18:14:00 Test Item Value Reference Range Interpretation Comments POC-GLUCOSE METER 195 mg/dL 70-110 H TESTED AT [place] [address] ([facility]) (test code = [facility] 1538) [address] POCT-GLUCOSE [id number] 12:20:00 Test Item Value Reference Range Interpretation Comments POC-GLUCOSE METER 224 mg/dL 70-110 H TESTED AT [place] [address] ([facility]) (test code = [facility] 1538) [address] [id number] 08:55:00 Test Item Value Reference Range Interpretation Comments LIPASE ([facility]) (test code = 749) 471 U/L 8-78 H POCT-GLUCOSE [id number] 08:12:00 Test Item Value Reference Range Interpretation Comments POC-GLUCOSE METER 128 mg/dL 70-110 H TESTED AT [place] [address] ([facility]) (test code = [facility] 1538) [address] [id number] 04:12:00 Test Item Value Reference Range Interpretation Comments T3 [facility]OTAL [facility] (test code = 656) 41 ng/dL 48-159 L T3, [id number] 04:11:00 Test Item Value Reference Range Interpretation Comments T3 FREE (BEAKER) (test code = 908) 1.31 pg/mL 1.71-3.71 L COMPREHENSIVE METABOLIC [id number] 04:01:00 Test Item Value Reference Range Interpretation [...] S NOT APPLICABLE FOR DIALYSIS PATIEN TS. [id number] 03:54:00 Test Item Value Reference Range Interpretation Comments MAGNESIUM (BEAKER) (test code = 1.7 mg/dL 1.6-2.6 627) PROTHROMBIN [id number] 03:53:00 Test Item Value Reference Range Interpretation [...] PERCENT (BEAKER) (test code = 2801) POCT-GLUCOSE [id number] 22:34:00 Test Item Value Reference Range Interpretation Comments POC-GLUCOSE METER 252 mg/dL 70-[address] [facility] 67[address] (BEAKER) (test code = [place] 1538) [address] [id number] 19:36:00 Test Item Value Reference Range Interpretation Comments MAGNESIUM (BEAKER) (test code = 1.6 mg/dL 1.6-2.6 627) BASIC METABOLIC [id number] 19:36:00 Test Item Value Reference Range Interpretation [...] NOT APPLICABLE FOR DIALYSIS PATIEN TS. URINE [id number] 11:51:00 Test Item Value Reference Range Interpretation Comments CULTURE ([facility]) (test code = 1095) No growth POCT-GLUCOSE [id number] 11:42:00 Test Item Value Reference Range Interpretation Comments POC-GLUCOSE METER 205 mg/dL 70-110 H TESTED AT [place] [address] ([facility]) (test code = [facility] 1538) [address] POCT-GLUCOSE [id number] 08:08:00 Test Item Value Reference Range Interpretation Comments POC-GLUCOSE METER 119 mg/dL 70-110 H TESTED AT [place] [address] ([facility]) (test code = [facility] 1538) [address] C. DIFFICILE GDH [id number] 07:40:00 Test Item Value Reference Range Interpretation Comments CDT TOXIN (test code Negative Negative = [id number]) CDT GDH ANTIGEN Positive Negative A C. difficile present but (test code = toxin not detec leesa. [id number]) Indicates colon ization with non-toxige lizbeth strain [...] performance was done by the [facility] Microbiology Lab prior to clinical use.POCT-GLUCOSE [id number] 06:37:00 Test Item Value Reference Range Interpretation Comments POC-GLUCOSE METER 141 mg/dL 70-110 H TESTED AT [place] [address] ([facility]) (test code = [facility] 1538) [address] COMPREHENSIVE METABOLIC [id number] 04:48:00 Test Item Value Reference Range Interpretation Comments TOTAL PROTEIN 4.7 gm/dL 6.0-8.3 L ([facility]) (test code = 770) ALBUMIN ([facility]) 2.7 g/dL 3.5-5.0 L (test code = 1145) ALKALINE PHOSPHATASE 33 U/L 40-150 L ([facility]) (test code = 346) BILIRUBIN TOTAL 0.4 mg/dL 0.2-1.2 ([facility]) (test code = 377) SODIUM (BEAKER) (test [...] NOT APPLICABLE FOR DIALYSIS PATIEN TS. PROTHROMBIN [id number] 04:40:00 Test Item Value Reference Range Interpretation Comments PROTIME (BEAKER) (test code = 23.8 seconds 11.7-14.7 H 759) INR (BEAKER) (test code = 370) 2.1 <=5.9 RECOMMENDED COUMADIN/WARFARIN INR THERAPY RANGESSTANDARD DOSE: 2.0 - 3.0 Includes: PROPHYLAXIS forvenous thrombosis, systemic embolization; TREATMENT for venous thrombosis and/or pulmonary embolus.HIGH RISK: Target INR is 2.5-3.5 for patients with mechanical heart valves.While on warfarin.[id number] 04:29:00 Test Item Value Reference Range Interpretation Comments MAGNESIUM (BEAKER) (test code = 2.0 mg/dL 1.6-2.6 627) CBC W/PLT COUNT & AUTO [id number] 04:11:00 Test Item Value Reference Range Interpretation [...] PERCENT (BEAKER) (test code = 2801) POCT-GLUCOSE [id number] 22:19:00 Test Item Value Reference Range Interpretation Comments POC-GLUCOSE METER 266 mg/dL 70-[address] [facility] 67[address] (BEAKER) (test code = MICAH Kay[place] 15[address]) [address] [id number] 17:54:00 Test Item Value Reference Range Interpretation Comments POTASSIUM (BEAKER) (test code = 4.2 meq/L 3.5-5.1 379) [id number] 17:23:00 Test Item Value Reference Range Interpretation Comments MAGNESIUM (BEAKER) (test code = 1.7 mg/dL 1.6-2.6 627) POCT-GLUCOSE [id number] 12:41:00 Test Item Value Reference Range Interpretation Comments POC-GLUCOSE METER 111 mg/dL 70-110 H TESTED AT [place] [address] (BEAKER) (test code = MICAH Kaye [facility] 1538) [address] [id number] 12:40:00 Test Item Value Reference Range Interpretation Comments POTASSIUM (BEAKER) (test code = 3.5 meq/L 3.5-5.1 379) POCT-GLUCOSE [id number] 10:05:00 Test Item Value Reference Range Interpretation Comments POC-GLUCOSE METER 94 mg/dL 70-110 TESTED AT [place] [address] (BEAKER) (test [facility] = [facility] [address]) COMPREHENSIVE METABOLIC [id number] 05:47:00 Test Item Value Reference Range Interpretation [...] S NOT APPLICABLE FOR DIALYSIS PATIEN TS. [id number] 05:44:00 Test Item Value Reference Range Interpretation Comments MAGNESIUM (BEAKER) (test code = 2.0 mg/dL 1.6-2.6 627) PROTHROMBIN [id number] 05:37:00 Test Item Value Reference Range Interpretation Comments PROTIME (BEAKER) (test code = 24.0 seconds 11.7-14.7 H 759) INR (BEAKER) (test code = 370) 2.2 <=5.9 RECOMMENDED COUMADIN/WARFARIN INR THERAPY RANGESSTANDARD DOSE: 2.0 - 3.0 Includes: PROPHYLAXIS forvenous thrombosis, systemic embolization; TREATMENT for venous thrombosis and/or pulmonary embolus.HIGH RISK: Target INR is 2.5-3.5 for patients with mechanical heart valves.PROTHROMBIN [id number] 05:36:00 Test Item Value Reference Range Interpretation [...] valves.While on warfarin.CBC W/PLT COUNT & AUTO [id number] 05:35:00 Test Item Value Reference Range Interpretation [...] 417) IMMATURE GRANULOCYTES-RELATIVE 1 % 0-1 PERCENT ([facility]) (test code = 2801) POCT-GLUCOSE [id number] 23:56:00 Test Item Value Reference Range Interpretation Comments POC-GLUCOSE METER 105 mg/dL 70-[address] [facility] 67[address] ([facility]) (test code = MICAH Kaye [facility] 1538) [address] TROPONIN [id number] 13:02:00 Test Item Value Reference Range Interpretation Comments TROPONIN I ([facility]) (test code = 0.02 ng/mL [...] Reference Range Interpretation Comments B-TYPE NATRIURETIC PEPTIDE ([facility]) 975 pg/mL 0-100 H (test code = 700) POCT-GLUCOSE [id number] 12:18:00 Test Item Value Reference Range Interpretation Comments POC-GLUCOSE METER 175 mg/dL 70-[address] [facility] 6720 ([facility]) (test code = MICAH Kaye [facility] 1538) [address] U/S, ABDOMINAL, [id number] 10:23:00Abdomen limited area? Add comment if clarification [...] MDReport Verified Date/Time: 01/14/2018 10:23:02 Reading Location: [address] Consult Reading Room T4, [id number] 08:42:00 Test Item Value Reference Range Interpretation Comments FREE T4 ([employer]) (test code = 655) 0.83 ng/dL 0.70-1.48 POCT-GLUCOSE [id number] 08:37:00 Test Item Value Reference Range Interpretation Comments POC-GLUCOSE METER 161 mg/dL 70-[address] [facility] 6720 ([facility]) (test code = [facility] 153) [address] TSH/FREE T4 IF [id number] 08:05:00 Test Item Value Reference Range Interpretation Comments THYROID STIMULATING HORMONE 0.02 uIU/mL 0.35-4.94 L (BEAKER) (test code = 772) VITAMIN B12 AND [id number] 07:42:00 Test Item Value Reference Range Interpretation Comments VITAMIN B12 (BEAKER) (test code = 1276 pg/mL 213-816 H 774) FOLATE (BEAKER) (test code = 362) 8.8 ng/mL >=7.0 LIPID [id number] 07:14:00 Test Item Value Reference Range Interpretation [...] Borderline 130-159 High 160-189 Very High >=190TROPONIN [id number] 07:12:00 Test Item Value Reference Range Interpretation [...] acute neurological disease, and persistent tachyarrhythmia.URINALYSIS W/ [id number] 06:35:00 Test Item Value Reference Range Interpretation [...] 517) SOURCE(BEAKER) (test code = Urine, [place] 9693) [id number] 06:07:00 Test Item Value Reference Range Interpretation Comments MAGNESIUM (BEAKER) (test code = 1.8 mg/dL 1.6-2.6 627) [id number] 05:32:00 Test Item Value Reference Range Interpretation Comments MAGNESIUM (BEAKER) (test code = 2.5 mg/dL 1.6-2.6 627) COMPREHENSIVE METABOLIC [id number] 05:32:00 Test Item Value Reference Range Interpretation [...] NOT APPLICABLE FOR DIALYSIS PATIEN TS. PROTHROMBIN [id number] 05:10:00 Test Item Value Reference Range Interpretation [...] 0-1 PERCENT (BEAKER) (test code = 2801) [id number] 02:52:00 Test Item Value Reference Range Interpretation Comments PROCALCITONIN (BEAKER) (test code 0.41 ng/mL <0.05 H = 3036) SEPSIS RISK (ng/mL)Low: 0.05-0.50Intermediate: 0.51-2.00High: >=2.01LACTIC ACID, VENOUS, WHOLE [id number] 02:06:00 Test Item Value Reference Range Interpretation Comments LACTATE BLOOD VENOUS 1.3 mmol/L 0.5-2.2 Specime n slightly (2) (BEAKER) (test hemolyzed code = 2872) Effective 01/07/2016: Units/Reference Range ChangeNew: 0.5-2.2 mmol/L Previous: 5-20 mg/dLCOMPREHENSIVE METABOLIC [id number] 02:06:00 Test Item Value Reference Range Interpretation [...] S NOT APPLICABLE FOR DIALYSIS PATIEN TS. [id number] 02:04:00 Test Item Value Reference Range Interpretation Comments LIPASE (BEAKER) (test code = 749) 730 U/L 8-78 H [id number] 02:04:00 Test Item Value Reference Range Interpretation Comments AMYLASE (BEAKER) (test code = 349) 226 U/L 25-125 H PROTHROMBIN [id number] 01:45:00 Test Item Value Reference Range Interpretation Comments PROTIME (BEAKER) (test code = 23.9 seconds 11.7-14.7 H 759) INR (BEAKER) (test code = 370) 2.1 <=5.9 RECOMMENDED COUMADIN/WARFARIN INR THERAPY RANGESSTANDARD DOSE: 2.0 - 3.0 Includes: PROPHYLAXIS forvenous thrombosis, systemic embolization; TREATMENT for venous thrombosis and/or pulmonary embolus.HIGH RISK: Target INR is 2.5-3.5 for patients with mechanical heart valves.[id number] 01:45:00 Test Item Value Reference Range Interpretation Comments PARTIAL THROMBOPLASTIN TIME 32.4 seconds 22.5-36.0 (BEAKER) (test code = 760) CBC W/PLT COUNT & AUTO [id number] 01:38:00 Test Item Value Reference Range Interpretation [...]
[2021-03-10 16:45] LABS: Absolute Lymphocytes (CBC) 0.5 K/uL (0.7-4.9); Basophils % 0.3 % (0-1.3); Hematocrit 26.6 % (36.0-45.0); MPV 9.5 fL (7.6-11.3); RBC Red Blood Cell Count 3.05 M/uL (3.86-4.86)
[2021-03-10 16:50] LABS: Protime INR 1.66
[2021-03-10 17:10] LABS: Urine Blood Negative (Negative); Urine Glucose Negative (Negative); Urine Protein Negative (Negative); Urine Specific Gravity 1.015 (1.005-1.030); Urine pH 8.5 (5.0-7.0)
[2021-03-10 17:10] LABS: ALT/SGPT 13 U/L (12-78); AST/SGOT 18 U/L (15-37); Albumin 2.9 g/dL (3.4-5.0); Alkaline Phosphatase 39 U/L (45-117); BUN Blood Urea Nitrogen 19 mg/dL (7-18); Bicarbonate 32 mmol/L (21-32); Bilirubin Direct 0.2 mg/dL (0-0.2); Bilirubin Total 0.6 mg/dL (0.2-1.0); Glucose Level 104 mg/dL (74-106); Magnesium 1.9 mg/dL (1.8-2.4); NT PRO-BNP 2016 pg/mL (<450); Protein, Total 6.4 g/dL (6.4-8.2); Sodium Level 147 mmol/L (136-145); Troponin (Emerg Dept Use Only) < 0.02 ng/mL (0.0-0.045)
[2021-03-10 17:13] LABS: Potassium 2.8 mmol/L (3.5-5.1)
--- NOTE | 2021-03-10 17:34 | RAD REPORT ---
EXAM DESCRIPTION: US - Extrem Venous W Compress Anderson - 03/10/2021 4:53 pm CLINICAL HISTORY: Pain;Swelling COMPARISON: None. July 2020 TECHNIQUE: Real-time sonographic evaluation of the right lower extremity deep venous systems was per formed. FINDINGS: Normal compressibility, flow augmentation, phasic flow and spontaneous flow are identified in the right lower extremity common femoral, superficial femoral, popliteal and posterior tibial vei ns. No intraluminal filling defects seen in the right leg. Echogenic material is present in the left greater saphenous vein extending into the left superficial femoral vein. Left common femoral vein is clear in shows good compression. The left femoral vein show s only partial compression. Echogenic material is present in the left popliteal vein as well with par tial compression. 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 Mixed acute and chronic thrombus in the superficial left greater saphenous vein. No right leg DVT.
--- NOTE | 2021-03-10 17:36 | RAD REPORT ---
EXAM DESCRIPTION: RAD - Chest Single View - 03/10/2021 4:42 pm CLINICAL HISTORY: SWELLING COMPARISON: Portable August 2020 TECHNIQUE: AP portable chest image was obtained 03/10/2021 4:42 pm . FINDINGS: Lungs are clear. Small granulomas are present. Interstitial pattern is accentuated by shal low inspiration and is similar to comparison. Heart and vasculature are normal. No measurable pleural effusion and no pneumothorax. No acute bony abnormality seen. No acute aortic findings suspected. PI CC line has been removed since prior imaging. IMPRESSION: No acute cardiopulmonary process.
[2021-03-10 17:51] LABS: Urine Amorphous Sediment 4+ /HPF (NONE SEEN); Urine Bacteria 20-50 /HPF (<20); Urine Mucus 1+ /HPF (NONE SEEN); Urine RBC <5 /HPF (NONE SEEN); Urine Yeast PRESENT (NONE SEEN)
[2021-03-10 17:58] LABS: Blood Morphology Comment NOTED (NOT SEEN); Platelet Estimate ADEQ; Polychromasia SLIGHT; White Blood Cell Scan OK (OK)
[2021-03-10] MEDS ORDERED: FENTANYL CITR 100 MCG/2 ML ONE (18:44)
[2021-03-10] MEDS ORDERED: KCL 20 MEQ/100 mL IVPB 20 MEQ/100 ML BAG IV ONE (18:45)
[2021-03-10] MEDS ORDERED: NA CHLORIDE 0.9% 100 ML ONE (19:00)
--- NOTE | 2021-03-10 19:26 | RAD REPORT ---
EXAM DESCRIPTION: CT - Abdomen Pelvis W Contrast - 03/10/2021 6:49 pm CLINICAL HISTORY: ABD PAIN COMPARISON: Abdomen Pelvis W Contrast dated 12/20/2020; Extrem Venous W Compress Anderson dated 03/10/2021 TECHNIQUE: Biphasic, helical CT imaging of the abdomen and pelvis was performed following 100 ml non -ionic IV contrast. No oral contrast administered. All CT scans are performed using dose optimization technique as appropriate and may include automated exposure control or mA/KV adjustment according to patient size. FINDINGS: No suspicious findings in the lung bases. The liver, spleen, and pancreas show no suspicious findings. Several small liver cysts are present an d stable from prior imaging. No gallbladder or biliary tree abnormality. Symmetric renal function is seen with no hydronephrosis or suspicious renal mass. No pyelonephritis o r acute parenchymal process. No bladder abnormalities. No adrenal abnormalities. No dilated bowel loops or bowel wall thickening. Moderate stool volume present in left-side of the co tone. Spann diverticulosis is present. No diverticulitis findings. No appendicitis findings evident. No free air, free fluid or inflammatory stranding. No hernia, mass or bulky lymphadenopathy. Prominent disc and bone degenerative changes are present. No acute arterial side finding. Earlier ult rasound study demonstrated left lower extremity venous thrombosis. CT imaging shows left common iliac and external iliac vein thrombus. There is a small amount of thrombus in the infrarenal IVC. IMPRESSION: Left IVC thrombus is seen filling a small portion of the infrarenal IVC. There is also left common iliac and external iliac vein thrombus. No acute abdominal or pelvic finding otherwise noted. Nonacute findings detailed in the body of the r eport.
[2021-03-10] MEDS ORDERED: CEFTRIAXONE/SWI 1gm 1 GM/10 ML SYR ONE (20:40)
--- NOTE | 2021-03-10 21:17 | EDPHYS ---
Physician Documentation [facility] Name: Emelia Payan Age: 80 yrs Sex: Female : 1940 Arrival Date: 03/10/2021 Time: 13:59 Bed 25 Private MD: ED Physician Jose Elias Marquez HPI: 03/10 16:00 This 80 yrs old Female presents to ER via Wheelchair with complaints of cp Abdominal Pain, Sore Throat, Weakness. 16:00 The patient presents with abdominal pain in the upper abdomen. cp 16:00 Onset: The symptoms/episode began/occurred today. cp 16:00 Associated signs and symptoms: Pertinent positives: general weakness, increased cp swelling of left leg, Pertinent negatives: blood in stools, chest pain, diarrhea, vomiting. Severity of pain: in the emergency department the pain is unchanged despite home interventions. Historical: - Allergies: 14:16 Bactrim; sv 14:16 Cipro; sv 14:16 Xarelto; sv 14:16 Zosyn; sv - PMHx: 14:16 CVA; Atrial Fib; CHF; adrenal insuficiency; Diabetes - IDDM; Hypothyroidism; DVT; sv Anxiety; Hypertension; lymphedema; Hyperlipidemia; Pancreatitis; L groin blood clot; - Immunization history:: Adult Immunizations up to date. - Social history:: Smoking status: unknown. ROS: 16:05 Abdomen/GI: Positive for abdominal pain, Negative for vomiting, diarrhea, constipation, cp black/tarry stool, rectal bleeding. 16:05 Eyes: Negative for injury, pain, redness, and discharge. cp 16:05 Constitutional: Negative for body aches, chills, fever, poor PO intake. 16:05 ENT: Positive for sore throat. 16:05 Cardiovascular: Positive for edema, Negative for chest pain, palpitations. 16:05 Respiratory: Negative for cough, shortness of breath, wheezing. 16:05 : Negative for urinary symptoms. 16:05 Neuro: Positive for weakness, Negative for altered mental status, headache, syncope. 16:05 MS/extremity: Positive for swelling, tenderness, of the left leg. cp 16:05 Back: Positive for pain at rest, pain with movement. cp 16:05 All other systems are negative. Exam: 16:05 ECG was reviewed by the Attending Physician. cp 16:10 Constitutional: The patient appears in no acute distress, alert, awake, cp non-diaphoretic, non-toxic, well developed, well nourished, obese. 16:10 Head/Face: Normocephalic, atraumatic. cp 16:10 Eyes: Periorbital structures: appear normal, Conjunctiva: normal, no exudate, no injection, Sclera: no appreciated abnormality, Lids and lashes: appear normal, bilaterally. 16:10 ENT: External ear(s): are unremarkable, Nose: is normal, Mouth: Lips: moist, Oral mucosa: moist, Posterior pharynx: Airway: no evidence of obstruction, patent. 16:10 Chest/axilla: Inspection: normal, Palpation: is normal, no crepitus, no tenderness. 16:10 Cardiovascular: Rate: normal, Rhythm: regular, Edema: pedal edema, that is marked, JVD: is not appreciated. 16:10 Respiratory: the patient does not display signs of respiratory distress, Respirations: normal, no use of accessory muscles, no retractions, labored breathing, is not present, Breath sounds: are clear throughout, no decreased breath sounds, no stridor, no wheezing. 16:10 Abdomen/GI: Inspection: abdomen appears normal, Bowel sounds: active, all quadrants, Palpation: soft, in all quadrants, moderate abdominal tenderness, in the right upper quadrant and left upper quadrant, rebound tenderness, is not appreciated, involuntary guarding, is not appreciated. 16:10 Back: pain, that is moderate, ROM is painful, with all movement. 16:10 Skin: no rash present. 16:10 Neuro: Orientation: to person, place \\T\\ time. Mentation: is normal, Motor: moves all fours, strength is normal. Vital Signs: 14:16 BP 143 / 65; Pulse 90; Resp 20; Temp 97.9(T); Pulse Ox 99% on R/A; Weight 73.48 kg; sv Height 5 ft. 4 in. (162.56 cm); Pain 0/10; 16:30 BP 135 / 62; Pulse 73; Resp 18; Pulse Ox 100% ; vg1 17:00 BP 132 / 76; Pulse 76; Resp 16; Pulse Ox 100% on R/A; vg1 17:30 BP 149 / 66; Pulse 65; Resp 16; Pulse Ox 98% on R/A; vg1 18:00 BP 161 / 74; Pulse 67; Resp 14; Pulse Ox 100% on R/A; vg1 20:23 BP 177 / 63; Pulse 68; Resp 17; Pulse Ox 100% on R/A; ld1 22:58 BP 154 / 62; Pulse 64; Resp 16; Pulse Ox 100% ; ld1 23:44 BP 155 / 61; Pulse 80; Resp 16; Pulse Ox 100% on R/A; ld1 03/11 00:00 BP 151 / 59; Pulse 64; Resp 16 S; Pulse Ox 98% on R/A; bb 03/10 14:16 Body Mass Index 27.81 (73.48 kg, 162.56 cm) sv MDM: 03/10 15:36 Patient medically screened. 21:20 Data reviewed: vital signs, nurses notes, lab test result(s), EKG, radiologic studies, cp CT scan, ultrasound. 21:20 Test interpretation: by ED physician or midlevel provider: ECG. 22:20 Physician consultation: was contacted at 22:20, regarding regarding transfer, to [facility]. cp patient's condition, consulting physician will be DR Dr Urias, , who requests transfer to hospitalist services and will place IVC filter. 22:55 Physician consultation: was contacted at 22:55, regarding regarding transfer, to [facility]. cp patient's condition, accepting physician will be DR Lubin, hospitalist, who will consult DR Urias. 03/10 15:55 Order name: Basic Metabolic Panel; Complete Time: 17:23 cp 03/10 17:23 Interpretation: Normal except: NA 147; K 2.8; CL 110; BUN 19; GFR 69; CA 8.1. cp 03/10 15:55 Order name: CBC with Diff; Complete Time: 18:10 cp 03/10 17:06 Interpretation: Normal except: HGB 8.5; RBC 3.05; HCT 26.6; RDW 18.0; MARIA E% 86.7; LYM% cp 9.0; LYMA 0.5. 03/10 15:55 Order name: LFT's; Complete Time: 17:23 cp 03/10 18:11 Interpretation: Normal except: ALK 39; ALB 2.9; A/G 0.8. cp 03/10 15:55 Order name: Magnesium; Complete Time: 17:23 cp 03/10 15:55 Order name: NT PRO-BNP; Complete Time: 17:23 cp 03/10 18:12 Interpretation: Abnormal: NT PRO-BNP 2016. cp 03/10 15:55 Order name: PT-INR; Complete Time: 17:06 cp 03/10 15:55 Order name: Troponin (emerg Dept Use Only); Complete Time: 17:23 cp 03/10 15:55 Order name: Urine Microscopic Only; Complete Time: 17:56 cp 03/10 18:11 Interpretation: Normal except: UWBC 20-50; UBACT 20-50; SQEPI 5-10; YEAST PRESENT; cp AMORPH 4+. 03/10 17:09 Order name: Urine Dipstick-Ancillary; Complete Time: 17:23 EDWA 03/10 18:12 Interpretation: Normal except: UPH 8.5; UESTR 2+. cp 03/10 17:51 Order name: Urine Culture EDWA 03/10 17:58 Order name: CBC Smear Scan; Complete Time: 18:10 EDWA 03/10 21:11 Order name: COVID-19 : Document "Date of Symptom Onset" if Symptomatic. 2 03/10 22:31 Order name: Ptt, Activated cp 03/10 15:55 Order name: XRAY Chest (1 view); Complete Time: 17:56 cp 03/10 15:55 Order name: EKG; Complete Time: 15:56 03/10 15:55 Order name: Cardiac monitoring; Complete Time: 16:03 03/10 15:55 Order name: EKG - Nurse/Tech; Complete Time: 16:03 cp 03/10 15:55 Order name: IV Saline Lock; Complete Time: 16:32 cp 03/10 15:55 Order name: Labs collected and sent; Complete Time: 16:32 cp 03/10 15:55 Order name: O2 Per Protocol; Complete Time: 16:03 cp 03/10 15:55 Order name: US Extremity Venous W Compression Anderson; Complete Time: 17:56 cp 03/10 17:25 Order name: CT Abd/Pelvis - IV Contrast Only; Complete Time: 19:34 cp 03/10 22:50 Order name: SARS-COV-2 RT PCR; Complete Time: 22:50 EDWA 03/10 15:55 Order name: O2 Sat Monitoring; Complete Time: 16:03 cp 03/10 15:55 Order name: Cath; Complete Time: 17:10 cp 07 15:55 Order name: Urine Dipstick-Ancillary (obtain specimen); Complete Time: 17:10 cp EC:05 Rate is 73 beats/min. Rhythm is irregular. GA interval is normal. QRS interval is cp normal. QT interval is normal. T waves are Inverted in lead aVR. Interpreted by me. Reviewed by me. Administered Medications: 18:28 Drug: fentaNYL (PF) 25 mcg Route: IVP; Site: left antecubital; ld1 20:21 Follow up: Response: No adverse reaction ld1 18:29 Drug: Potassium Chloride 20 mEq Route: IV; Rate: calculated rate; Site: left vg1 antecubital; 20:21 Drug: Rocephin - (cefTRIAXone) 1 grams Route: IVPB; Infused Over: 30 mins; Site: left ld1 antecubital; 20:21 Follow up: Response: No adverse reaction; IV Status: Completed infusion ld1 21:25 Drug: Potassium Effervescent Tablet 50 mEq Route: PO; ld1 22:23 Follow up: Response: No adverse reaction ld1 23:10 Drug: Heparin (DVT/PE Drip) 18 units/kg/hr - (HEParin 43602 units, D5W 500 ml) ld1 {Co-Signature: ad1 (Kiesha Tsai RN).} Route: IV; Rate: calculated rate; Site: left antecubital; 03/11 00:35 Follow up: IV Status: Infusion continued upon transfer 03/10 23:54 Drug: fentaNYL (PF) 25 mcg Route: IVP; Site: left antecubital; ld1 23:54 Follow up: Response: No adverse reaction ld1 03/11 00:34 Follow up: Response: No adverse reaction; Pain is decreased; RASS: Alert and Calm (0) bb Disposition: 09:34 Co-signature as Attending Physician, Jose Elias Marquez MD I agree with the assessment and gilberto plan of care. Disposition Summary: 03/10/21 21:16 Transfer Ordered Transfer Location: [facility] cp Reason: Higher level of care cp Condition: Stable cp Problem: new cp Symptoms: have improved cp Accepting Physician: DR Lubin(03/11/21 00:36) bb Diagnosis - Weakness cp - UTI/ Urinary tract infection, site not specified cp - Acute embolism and thrombosis of unspecified deep veins of left lower extremity cp - Syncope Near cp Forms: - Medication Reconciliation Form cp - SBAR form cp Signatures: Dispatcher [employer] EDMS Gabriella Bateman RN Jose Elias Sharp MD MD cha Ballard, Brenda, RN RN bb Mor De La Cruz, CERAMIC PLATER-C CERAMIC PLATER-Cla1 Jose Elias Gamboa PA PA cp Garcia, Victoria, RN RN vg1 Susana Sorto RN RN ld1 Kiesha Tsai RN ad1 Corrections: (The following items were deleted from the chart) 03/10 21:17 21:16 Doctor cp cp 21:42 21:12 CORONAVIRUS ordered. EDWA EDWA 22:57 21:17 Doctor cp cp 03/11 00:36 03/10 22:57 DR Tristian parekh bb
--- NOTE | 2021-03-10 21:17 | ER ---
Nurse's Notes [facility] Name: Emelia Payan Age: 80 yrs Sex: Female : 1940 Arrival Date: 03/10/2021 Time: 13:59 Bed 25 Private MD: Diagnosis: Weakness;UTI/ Urinary tract infection, site not specified;Acute embolism and thrombosis of unspecified deep veins of left lower extremity;Syncope Near Presentation: 03/10 14:15 Chief complaint: Patient states: generalized weakness, fatigue, "one part of my stomach sv feels full and the other part feels empty", chest pressure, SOB x 2 years. Coronavirus screen: Client denies travel out of the [place] in the last 14 days. Ebola Screen: No symptoms or risks identified at this time. Risk Assessment: Do you want to hurt yourself or someone else? Patient reports no desire to harm self or others. Onset of symptoms is unknown. 14:15 Method Of Arrival: Wheelchair sv 14:15 Acuity: EDIS 3 sv 14:16 Initial Sepsis Screen: Does the patient meet any 2 criteria? No. Patient's initial sv sepsis screen is negative. Does the patient have a suspected source of infection? No. Patient's initial sepsis screen is negative. Triage Assessment: 14:18 General: Appears in no apparent distress. comfortable, Behavior is calm, cooperative, sv appropriate for age. Pain: Denies pain. Neuro: Level of Consciousness is awake, alert, obeys commands, Oriented to person, place, time, situation. Respiratory: Respiratory effort is even, unlabored. Historical: - Allergies: 14:16 Bactrim; sv 14:16 Cipro; sv 14:16 Xarelto; sv 14:16 Zosyn; sv - PMHx: 14:16 CVA; Atrial Fib; CHF; adrenal insuficiency; Diabetes - IDDM; Hypothyroidism; DVT; sv Anxiety; Hypertension; lymphedema; Hyperlipidemia; Pancreatitis; L groin blood clot; - Immunization history:: Adult Immunizations up to date. - Social history:: Smoking status: unknown. Screenin:33 Abuse screen: Denies threats or abuse. Nutritional screening: No deficits noted. vg1 Tuberculosis screening: No symptoms or risk factors identified. Fall Risk No fall in past 12 months (0 pts). No secondary diagnosis (0 pts). IV access (20 points). Ambulatory Aid- Crutches/Cane/Walker (15 pts). Gait- Weak (10 pts.). Mental Status- Oriented to own ability (0 pts). Total Dickens Fall Scale indicates No Risk (0-24 pts). Assessment: 15:50 General: Appears in no apparent distress. uncomfortable, Behavior is calm, cooperative, vg1 crying. Pain: Complains of pain in epigastric area, right upper quadrant and left upper quadrant and lower back Pain currently is 8 out of 10 on a pain scale. Noted to be crying, grimacing, moaning. Neuro: Level of Consciousness is awake, alert, obeys commands, Oriented to person, place, time, situation. Cardiovascular: Capillary refill < 3 seconds in bilateral fingers. Respiratory: Airway is patent Respiratory effort is even, unlabored. GI: Bowel sounds present X 4 quads. Abdomen is tender to palpation in epigastric area, right upper quadrant and left upper quadrant Reports BM this morning, stated normal. : No signs and/or symptoms were reported regarding the genitourinary system. EENT: No signs and/or symptoms were reported regarding the EENT system. Derm: Skin is thin, Skin is red, DARRYL lower extremities Reports Lymphedema and has been seeing Dr Rushing for wound treatment. Musculoskeletal: Swelling present in right leg and left leg. 17:55 Reassessment: Pt c/o back pain; provider notified. vg1 18:30 Reassessment: Patient appears in no apparent distress at this time. No changes from vg1 previously documented assessment. Patient and/or family updated on plan of care and expected duration. Pain level reassessed. Patient is alert, oriented x 3, equal unlabored respirations, skin warm/dry/pink. 20:23 Reassessment: Patient appears in no apparent distress at this time. No changes from ld1 previously documented assessment. Patient and/or family updated on plan of care and expected duration. Pain level reassessed. Patient is alert, oriented x 3, equal unlabored respirations, skin warm/dry/pink. 22:58 Reassessment: Resting in bed with at bedside. Denies concerns at this time. RR ld1 15. 23:44 Reassessment: Patient appears in no apparent distress at this time. No changes from ld1 previously documented assessment. Patient and/or family updated on plan of care and expected duration. Pain level reassessed. Patient is alert, oriented x 3, equal unlabored respirations, skin warm/dry/pink. 03/11 00:32 Reassessment: [facility] at bedside for transport of pt to [facility], pt is A\\T\\O x 4, bb resp unlabored, IV site intact, patent with heparin infusing. Vital Signs: 03/10 14:16 BP 143 / 65; Pulse 90; Resp 20; Temp 97.9(T); Pulse Ox 99% on R/A; Weight 73.48 kg; sv Height 5 ft. 4 in. (162.56 cm); Pain 0/10; 16:30 BP 135 / 62; Pulse 73; Resp 18; Pulse Ox 100% ; vg1 17:00 BP 132 / 76; Pulse 76; Resp 16; Pulse Ox 100% on R/A; vg1 17:30 BP 149 / 66; Pulse 65; Resp 16; Pulse Ox 98% on R/A; vg1 18:00 BP 161 / 74; Pulse 67; Resp 14; Pulse Ox 100% on R/A; vg1 20:23 BP 177 / 63; Pulse 68; Resp 17; Pulse Ox 100% on R/A; ld1 22:58 BP 154 / 62; Pulse 64; Resp 16; Pulse Ox 100% ; ld1 23:44 BP 155 / 61; Pulse 80; Resp 16; Pulse Ox 100% on R/A; ld1 03/11 00:00 BP 151 / 59; Pulse 64; Resp 16 S; Pulse Ox 98% on R/A; bb 03/10 14:16 Body Mass Index 27.81 (73.48 kg, 162.56 cm) sv ED Course: 03/10 13:59 Patient arrived in ED. ds1 14:16 Triage completed. sv 14:16 Arm band placed on. sv 15:34 Jose Elias Gamboa PA is PHCP. cp 15:34 Jose Elias Marquez MD is Attending Physician. cp 15:35 Mayi Mercado, ODILON is Primary Nurse. vg1 16:32 Inserted saline lock: 20 gauge in right antecubital area, using aseptic technique. vg1 ,using aseptic technique. Completed by [facility] Blood collected. 16:33 Patient has correct armband on for positive identification. Bed in low position. Call vg1 light in reach. Side rails up X2. Adult w/ patient. 16:42 XRAY Chest (1 view) In Process Unspecified. EDMS 16:53 US Extremity Venous W Compression Darryl In Process Unspecified. EDMS 18:49 CT Abd/Pelvis - IV Contrast Only In Process Unspecified. EDMS 20:41 initiated a transfer with Ami Velez from [facility] [place]. mw2 20:55 [facility] denied due to capacity. mw2 21:05 initiated a transfer with Susana from [facility]. mw2 21:12 Ami Agustin from [facility] called back to inform us that "[place] [id number] would be the only available facility with the services that you need, and they are at capacity so the patient is going to be declined.". 21:39 Radha from [facility] Transfer called to update us on the transfer. They are trying to [facility] get a hold of the Doctor and will call back when they get a hold of them. 21:58 Connected Jose Elias Page with the Interventional Radiologist Resident from [facility]. mw2 22:45 Ptt, Activated Sent. ld1 22:58 administrative approval given by Susana Neff/ patient has been accepted to [address] Bed 11 D 1175/ Dr. Lubin accepted the patient in transfer/ report to be called to [phone]. 23:24 Primary Nurse role handed off by Mayi Mercado, ODILON mw2 23:24 Susana Sorto, RN is Primary Nurse. ld1 03/11 00:35 No provider procedures requiring assistance completed. Patient transferred, IV remains bb in place. Administered Medications: 03/10 18:28 Drug: fentaNYL (PF) 25 mcg Route: IVP; Site: left antecubital; ld1 20:21 Follow up: Response: No adverse reaction ld1 18:29 Drug: Potassium Chloride 20 mEq Route: IV; Rate: calculated rate; Site: left vg1 antecubital; 20:21 Drug: Rocephin - (cefTRIAXone) 1 grams Route: IVPB; Infused Over: 30 mins; Site: left ld1 antecubital; 20:21 Follow up: Response: No adverse reaction; IV Status: Completed infusion ld1 21:25 Drug: Potassium Effervescent Tablet 50 mEq Route: PO; ld1 22:23 Follow up: Response: No adverse reaction ld1 23:10 Drug: Heparin (DVT/PE Drip) 18 units/kg/hr - (HEParin 80965 units, D5W 500 ml) ld1 {Co-Signature: ad1 (Kiesha Tsai RN).} Route: IV; Rate: calculated rate; Site: left antecubital; 03/11 00:35 Follow up: IV Status: Infusion continued upon transfer bb 03/10 23:54 Drug: fentaNYL (PF) 25 mcg Route: IVP; Site: left antecubital; ld1 23:54 Follow up: Response: No adverse reaction ld1 03/11 00:34 Follow up: Response: No adverse reaction; Pain is decreased; RASS: Alert and Calm (0) bb Outcome: 03/10 21:16 ER care complete, transfer ordered by . iglesia 03/11 00:35 Transferred by ground EMS to [facility], Transfer form bb completed. X-rays sent w/ patient. Condition: stable Instructed on the need for transfer. 00:36 Patient left the ED. bb Signatures: Dispatcher [employer] Gabriella Godinez RN RN Philomena Paul ds1 Gabriella Hutchins RN RN bb Jose Elias Gamboa PA PA cp Hermelindo Shin mw2 Mayi Mercado RN RN vg1 Susana Sorto, RN RN ld1 Kiesha Tsai RN ad1 Corrections: (The following items were deleted from the chart) 03/10 14:18 14:16 Pulse 90bpm; Resp 20bpm; Pulse Ox 99%; Temp 97.9F; 73.48 kg; Height 5 ft. 4 in.; sv BMI: 27.8; Pain 0/10; sv
[2021-03-10] MEDS ORDERED: POTASSIUM 25 MEQ EFFERV TAB ONE (21:43)
[2021-03-10] MEDS ORDERED: HEPARIN/D5W 25,000 UNIT/500 ML BAG IV ONE (22:58)
[2021-03-11] MEDS ORDERED: FENTANYL CITR 100 MCG/2 ML ONE (00:13)
[2021-03-11 00:41] VITALS: TEMP 97.9
[2021-03-11 00:53] VITALS: BP 151/59; O2SAT 98
--- NOTE | 2021-03-11 13:01 | EKG ---
Test Date: 2021-03-10 Test Time: 15:58:21 Wire Stripper: KATE MEASUREMENT RESULTS: Intervals: Rate: 73 KS: 120 QRSD: 72 QT: 426 QTc: 469 Mylo: P: 35 KS: 120 QRS: -5 T: 12 INTERPRETIVE STATEMENTS: Undetermined rhythm Otherwise normal ECG Compared to ECG 07/29/2020 21:36:08 Sinus rhythm no longer present Sinus arrhythmia no longer present Electronically Signed On 03-11-21 12:59:27 CDT by Heladio Diaz
== END 2021-03-11 00:36 | disposition short-term general hospital (02) ==
LOC: ER 13:56
DX: N39.0 Urinary tract infection, site not specified (principal); I82.402 Acute embolism and thrombosis of unspecified deep veins of left lower extremity; R55 Syncope and collapse; I10 Essential (primary) hypertension; Z88.1 Allergy status to other antibiotic agents; Z88.8 Allergy status to other drugs, medicaments and biological substances; Z20.822 Contact with and (suspected) exposure to COVID-19
CPT/HCPCS: 96365; 93005; 87088; 85025; 87086; 80048; 36415; 83735; 85610; 80076; 85730; 84484; 83880; 74177; 71045; 93970; 96375; 99285; U0003; Q9967; J3480; J3010; J0696; J1644; 81003; 81015

== ENCOUNTER 2021-03-23 14:08 | Emergency (ER) | payer OTHER ==
--- OUTSIDE RECORDS SUMMARY | 2021-03-23 14:13 | XMS REPORT | Continuity of Care Document ---
:1940 Author Organization [facility] t Address [address] [place] [address] Care Team Providers Name Role Phone Juanpablo Iraheta MD Primary Care Physician Juanpablo Iraheta Attending Clinician [phone] Harrison CRAIN Attending Clinician Lucero DONALD Attending Clinician Unavailable Kunal STRATTON Attending Clinician Zach FAROOQ Attending Clinician Doctor Unassigned, Name Attending Clinician Unavailable Kadeem DONALD, A Attending Clinician Unavailable Sherin Villagomez MD Attending Clinician Abril STRATTON P Attending Clinician Omar Bailon MD, J Attending Clinician Mesha Palomino MD Attending Clinician RODNEY DEL ROSARIO Attending Clinician Unavailable LETTY HAYES Attending Clinician Unavailable ARLENE SANDOVAL Attending Clinician Unavailable Kunal STRATTON Admitting Clinician Mesha Palomino MD Admitting Clinician LETTY HAYES Admitting Clinician Unavailable ARLENE SANODVAL Admitting Clinician Unavailable Problems Condition Condition Condition Status Onset Resolution Last Treating Co mments Source Name Details Category Date Date Treatment Clinician Date Pancreatit Pancreatit Disease Active [facility] [place] Sepsis Sepsis Disease Active [facility] [place] Paroxysmal Paroxysmal Disease Active [facility] A-fib A-fib [facility]14 [facility]: [facility] 00 [place] Allergies, Adverse Reactions, Alerts Allergy Allergy Status Severity Reaction(s) Onset Inactive Treating Comm ents Source Name Type Date Date Clinician Ciproflo Propensi Active Itching [facility] - adverse 00:00: Medical reaction 00 [place] Rivaroxa Drug Active Other (See Internal [facility] ban Intolera Comments) 01-14 bleeding Mindy es - nce 00:00: Medical 00 [place] Family History Family Member Diagnosis Comments Start Date Stop Date Source Natural father Heart disease [facility] Natural mother Heart disease [facility] Social History Social Habit Start Date Stop Date Quantity Comments Source Sex Assigned At [facility] Tobacco use and 2018-11-09 2018-11-09 Never used [facility] - exposure 00:00:00 00:00:00 [facility] Alcohol intake 2018-11-09 2018-11-09 Current [facility] - 00:00:00 00:00:00 non-drinker of Medical nter alcohol (finding) Smoking Status Start Date Stop Date Source [facility] Ordered Filled Start Stop Current Ordering Indication Dosage Frequency Signature Comments Components Source Medication Medication Date Date Medication? Clinician (SIG) Name Name cholecalcif Yes [id number] Take [facility] ghada, 3- 50,000 [facility] - vitamin D3, 12:12: Units by Wy dical 50,000 unit 28 mouth once Ce [...] MG tablet 12:12: daily. Medica l 27 [place] losartan Yes 100mg QD Take [address] (COZAAR) 3-07 mg by [facility] - 100 MG 12:12: mouth Medical tablet 27 daily. [place] methscopola Yes 5mg QD Take 5 mg [...] 00:00: mouth Medical tablet 00 daily . [place] gabapentin Yes 600mg [id number] Take [address] (NEURONTIN) 4-16 [id number] mg by L ukes - 600 MG [...] 00:00:00 (1 of 1 - [facility] [id number] PCV13) [code = PNEUMOCOCCAL 65+ YRS (1 of 1 - UQGU39_Vwutvmq PCV13)] Encounters Start End Encounter Admission Attending Care Care Encounter Source Date/Time Date/Time Type Type Clinicians Facility Department ID 2021-03-20 2021-03-20 Outpatient Esequiel [facility] [id number] 00:00:00 00:00:00 Dany [id number] Juanpablo [id number] 2021-03-18 2021-03-18 Telephone MONO Terry [id number] 00:00:00 00:00:00 Pamela PRIMARY [id number] CARE 4.2.7.2.686 CHE [id number] 2021-03-16 2021-03-16 Transition Doyle Barker 1.2.840.114 [id number] 00:00:00 00:00:00 of Care Chelsey Del Angel 350.1.13.10 [place] 4.2.7.2.686 [id number] 2021-03-11 2021-03-13 [facility] Dacia Syed 1.2.840.114 [id number] 02:03:00 17:36:00 Encounter Letitia Mcdonald [id number] Hospital 4.2.7.2.686 [id number] 2021-03-12 2021-03-12 Case LONNIE Serrano [id number] 00:00:00 [facility]00:00 [facility] 350.1.13.10 [facility] 4.2.7.2.686 [id number] 2021-02-20 2021-02-20 Orders Doctor MIRA 1.2.840.114 [id number] 00:00:00 00:00:00 Only Unassigned, PABLO 350.1.13.10 [facility] 4.2.7.2.686 [id number] 2021-01-21 2021-01-21 Orders Doctor MIRA 1.2.840.114 [id number] 00:00:00 00:00:00 Only Unassigned, PABLO 350.1.13.10 [facility] 4.2.7.2.686 [id number] 2021-01-08 2021-01-08 Orders Doctor MIRA 1.2.840.114 [id number] 00:00:00 00:00:00 Only Unassigned, PABLO 350.1.13.10 [facility] 4.2.7.2.686 [id number] 2021-01-05 2021-01-05 Transition Doyle Quan 1.2.840.114 [id number] 00:00:00 00:00:00 of Care Todd Del Angel 350.1.13.10 [place] 4.2.7.2.686 [id number] 2020-12-21 2021-01-02 Hospital Latoya Villagomez [id number] [id number] 05:34:00 18:49:00 Encounter Fabrizio Samuelsy 350.1.13.10 Matt Nelson [facility] 4.2.7.2.686 Tiesha Palomino [id number] 2020-12-27 2020-12-27 Surgery Dacia 1.2.840.114 [id number] 14:55:00 16:17:00 [place] 350.1.13.10 [facility] 4.2.7.2.686 [id number] 2020-12-22 2020-12-22 Surgery [facility] [id number] 10:40:00 11:14:00 [facility] 350.1.13.10 [facility] 4.2.7.2.686 [facility] [id number] 2020-12-19 2020-12-19 [facility] Out[facility]sequiel [facility] [id number] 00:00:00 00:00:00 Dany [id number] Juanpablo [id number] 2020-09-08 2020-09-08 Outpatient Esequiel [facility] [id number] 00:00:00 00:00:00 Dany [id number] Juanpablo [id number] [...] SOURCE(BEAKER) (test code = 2795) Urine, Voided [id number] 13:11:00 Test Item Value Reference Range Interpretation Comments LIPASE (BEAKER) (test code = 749) 45 U/L 8-78 BASIC METABOLIC [id number] 13:11:00 Test Item Value Reference Range Interpretation [...] APPLICABLE FOR DIALYSIS PATIEN TS. HEPATIC FUNCTION [id number] 13:11:00 Test Item Value Reference Range Interpretation [...] (test code = 14 U/L 6-55 347) [id number] 13:02:00 Test Item Value Reference Range Interpretation [...] PERCENT (BEAKER) (test code = 2801) TISSUE [id number] 13:06:00Surgical Pathology Report Case: [id number] Authorizing Provider: Luiz Hayes Collected: 03/14/2018 1115 Ordering Location: [facility] Endoscopy Received: 03/14/2018 1351 Services Pathologist: Mara Barboza MD Specimens: A) -Polyp, Duodenum B) - Stomach, Antrum, bx C) - Biopsy, Gastric, gastric body D) - Biopsy, Esophagus, random THIS ADDENDUM IS ISSUED TO REPORT THE RESULT OF IMMUNOHISTOCHEMICAL STUDY FOR HELICOBACTER PYLORI OM SPECIMEN B: - NEGATIVE CPT CODE: [id number] electronically signed by Mara Barboza MD on [...] MALIGNANCY SEEN Signing Pathologist Direct Phone Line: [phone] signed by Mara Barboza MD on 03/17/2018 at 10:35 [id number] X 4; [phone] X 2A. Polyp, duodenum. B. Stomach antrum. [...] the diagnostic report above:AMBER X 2 POCT-GLUCOSE [id number] 12:41:00 Test Item Value Reference Range Interpretation Comments POC-GLUCOSE METER 75 mg/dL 70-110 TESTED AT [place] [address] ([facility]) (test code = [facility] [address] 1538) BLOOD [id number] 06:00:00 Test Item Value Reference Range Interpretation Comments CULTURE (BEAKER) (test No growth in 5 days code = 1095) BLOOD [id number] 06:00:00 Test Item Value Reference Range Interpretation Comments CULTURE (BEAKER) (test No growth in 5 days code = 1095) POCT-GLUCOSE [id number] 12:32:00 Test Item Value Reference Range Interpretation Comments POC-GLUCOSE METER 217 mg/dL 70-110 H TESTED AT [place] [address] ([facility]) (test code = [facility] 1538) [address] POCT-GLUCOSE [id number] 08:36:00 Test Item Value Reference Range Interpretation Comments POC-GLUCOSE METER 92 mg/dL 70-110 TESTED AT [place] [address] ([facility]) (test code = [facility] [address] 1538) COMPREHENSIVE METABOLIC [id number] 04:59:00 Test Item Value Reference Range Interpretation [...] S NOT APPLICABLE FOR DIALYSIS PATIEN TS. [id number] 04:50:00 Test Item Value Reference Range Interpretation Comments MAGNESIUM (BEAKER) (test code = 1.7 mg/dL 1.6-2.6 627) PROTHROMBIN [id number] 04:35:00 Test Item Value Reference Range Interpretation [...] EOSINOPHILS ABSOLUTE COUNT 0.06 K/ L 0.04-0.36 (AKER) (test code = 416) BASOPHILS ABSOLUTE COUNT (AKER) 0.02 K/ L 0.01-0.08 (test code = 417) IMMATURE GRANULOCYTES-RELATIVE 1 % 0-1 PERCENT ([facility]) (test code = 2801) POCT-GLUCOSE [id number] 22:13:00 Test Item Value Reference Range Interpretation Comments POC-GLUCOSE METER 194 mg/dL 70-110 H TESTED AT [place] [address] ([facility]) (test code = [facility] 1538) [address] POCT-GLUCOSE [id number] 18:14:00 Test Item Value Reference Range Interpretation Comments POC-GLUCOSE METER 195 mg/dL 70-110 H TESTED AT [place] [address] ([facility]) (test code = [facility] 1538) [address] POCT-GLUCOSE [id number] 12:20:00 Test Item Value Reference Range Interpretation Comments POC-GLUCOSE METER 224 mg/dL 70-110 H TESTED AT [place] [address] ([facility]) (test code = [facility] 1538) [address] [id number] 08:55:00 Test Item Value Reference Range Interpretation Comments LIPASE ([facility]) (test code = 749) 471 U/L 8-78 H POCT-GLUCOSE [id number] 08:12:00 Test Item Value Reference Range Interpretation Comments POC-GLUCOSE METER 128 mg/dL 70-110 H TESTED AT [place] [address] ([facility]) (test code = [facility] 1538) [address] [id number] 04:12:00 Test Item Value Reference Range Interpretation Comments T3 TOTAL (BEAKER) (test code = 656) 41 ng/dL 48-159 L T3, [id number] 04:11:00 Test Item Value Reference Range Interpretation Comments T3 FREE ([facility]) (test code = 908) 1.31 pg/mL 1.71-3.71 L COMPREHENSIVE METABOLIC [id number] 04:01:00 Test Item Value Reference Range Interpretation [...] S NOT APPLICABLE FOR DIALYSIS PATIEN TS. [id number] 03:54:00 Test Item Value Reference Range Interpretation Comments MAGNESIUM (BEAKER) (test code = 1.7 mg/dL 1.6-2.6 627) PROTHROMBIN [id number] 03:53:00 Test Item Value Reference Range Interpretation [...] PERCENT (BEAKER) (test code = 2801) POCT-GLUCOSE [id number] 22:34:00 Test Item Value Reference Range Interpretation Comments POC-GLUCOSE METER 252 mg/dL 70-[address] [facility] 6720 (BEAKER) (test code = [facility] 1538) [address] [id number] 19:36:00 Test Item Value Reference Range Interpretation Comments MAGNESIUM (BEAKER) (test code = 1.6 mg/dL 1.6-2.6 627) BASIC METABOLIC [id number] 19:36:00 Test Item Value Reference Range Interpretation [...] NOT APPLICABLE FOR DIALYSIS PATIEN TS. URINE [id number] 11:51:00 Test Item Value Reference Range Interpretation Comments CULTURE (BEAKER) (test code = 1095) No growth POCT-GLUCOSE [id number] 11:42:00 Test Item Value Reference Range Interpretation Comments POC-GLUCOSE METER 205 mg/dL 70-[address] [facility] 6720 ([facility]) (test code = [facility] 1538) [address] POCT-GLUCOSE [id number] 08:08:00 Test Item Value Reference Range Interpretation Comments POC-GLUCOSE METER 119 mg/dL 70-110 H TESTED AT [place] [address] ([facility]) (test code = MICAH Kaye [facility] 1538) [address] C. DIFFICILE GDH [id number] 07:40:00 Test Item Value Reference Range Interpretation Comments CDT TOXIN (test code Negative Negative = [id number]) CDT GDH ANTIGEN Positive Negative A C. difficile present but (test code = toxin not detec leesa. [id number]) Indicates colon ization with non-toxige lizbeth strain or level of tox in below detectable leve ls. No need for enteri c isolation. Duran atment is rarely needed ( only when strong clinical suspicion for Clostridium difficile infection) Testing performed by Synthorx Rapid Cassette Assay. For GDH, published sensitivity of the assay is 98.7% compared to cytotoxicity testing. For Toxin AB, published sensitivity is 87.8% and specificity 99.4% compared to cytotoxicity testing.Verification of kit performance was done by the [facility] Microbiology Lab prior to clinical use.POCT-GLUCOSE [id number] 06:37:00 Test Item Value Reference Range Interpretation Comments POC-GLUCOSE METER 141 mg/dL 70-110 H TESTED AT [place] [address] ([facility]) (test code = BANNER Mikki [facility] 1538) [address] COMPREHENSIVE METABOLIC [id number] 04:48:00 Test Item Value Reference Range Interpretation [...] NOT APPLICABLE FOR DIALYSIS PATIEN TS. PROTHROMBIN [id number] 04:40:00 Test Item Value Reference Range Interpretation Comments PROTIME (BEAKER) (test code = 23.8 seconds 11.7-14.7 H 759) INR (BEAKER) (test code = 370) 2.1 <=5.9 RECOMMENDED COUMADIN/WARFARIN INR THERAPY RANGESSTANDARD DOSE: 2.0 - 3.0 Includes: PROPHYLAXIS forvenous thrombosis, systemic embolization; TREATMENT for venous thrombosis and/or pulmonary embolus.HIGH RISK: Target INR is 2.5-3.5 for patients with mechanical heart valves.While on warfarin.[id number] 04:29:00 Test Item Value Reference Range Interpretation Comments MAGNESIUM (BEAKER) (test code = 2.0 mg/dL 1.6-2.6 627) CBC W/PLT COUNT & AUTO [id number] 04:11:00 Test Item Value Reference Range Interpretation [...] PERCENT (BEAKER) (test code = 2801) POCT-GLUCOSE [id number] 22:19:00 Test Item Value Reference Range Interpretation Comments POC-GLUCOSE METER 266 mg/dL 70-[address] [facility] 6720 (BEAKER) (test code = MICAH CHANG 1538) [address] [id number] 17:54:00 Test Item Value Reference Range Interpretation Comments POTASSIUM (BEAKER) (test code = 4.2 meq/L 3.5-5.1 379) [id number] 17:23:00 Test Item Value Reference Range Interpretation Comments MAGNESIUM (BEAKER) (test code = 1.7 mg/dL 1.6-2.6 627) POCT-GLUCOSE [id number] 12:41:00 Test Item Value Reference Range Interpretation Comments POC-GLUCOSE METER 111 mg/dL 70-[address] [facility] 6720 (BEAKER) (test code = MICAH Kaye [place] 1538) [address] [id number] 12:40:00 Test Item Value Reference Range Interpretation Comments POTASSIUM (BEAKER) (test code = 3.5 meq/L 3.5-5.1 379) POCT-GLUCOSE [id number] 10:05:00 Test Item Value Reference Range Interpretation Comments POC-GLUCOSE METER 94 mg/dL 70-110 TESTED AT [place] [address] (BEAKER) (test code = [place] [address] 1538) COMPREHENSIVE METABOLIC [id number] 05:47:00 Test Item Value Reference Range Interpretation [...] S NOT APPLICABLE FOR DIALYSIS PATIEN TS. [id number] 05:44:00 Test Item Value Reference Range Interpretation Comments MAGNESIUM (BEAKER) (test code = 2.0 mg/dL 1.6-2.6 627) PROTHROMBIN [id number] 05:37:00 Test Item Value Reference Range Interpretation Comments PROTIME (BEAKER) (test code = 24.0 seconds 11.7-14.7 H 759) INR (BEAKER) (test code = 370) 2.2 <=5.9 RECOMMENDED COUMADIN/WARFARIN INR THERAPY RANGESSTANDARD DOSE: 2.0 - 3.0 Includes: PROPHYLAXIS forvenous thrombosis, systemic embolization; TREATMENT for venous thrombosis and/or pulmonary embolus.HIGH RISK: Target INR is 2.5-3.5 for patients with mechanical heart valves.PROTHROMBIN [id number] 05:36:00 Test Item Value Reference Range Interpretation [...] valves.While on warfarin.CBC W/PLT COUNT & AUTO [id number] 05:35:00 Test Item Value Reference Range Interpretation [...] PERCENT (BEAKER) (test code = 2801) POCT-GLUCOSE [id number] 23:56:00 Test Item Value Reference Range Interpretation Comments POC-GLUCOSE METER 105 mg/dL 70-[address] [facility] 6720 (BEAKER) (test code = MICAH CHANG 1538) [address] TROPONIN [id number] 13:02:00 Test Item Value Reference Range Interpretation Comments TROPONIN I (MATTHEW) (test code = 0.02 ng/mL 0.00-0.03 397) [...] 0-100 H (test code = 700) POCT-GLUCOSE [id number] 12:18:00 Test Item Value Reference Range Interpretation Comments POC-GLUCOSE METER 175 mg/dL 70-[address] [facility] 6720 (MATTHEW) (test code = MICAH Kaye [place] 1538) [address] U/S, ABDOMINAL, [id number] 10:23:00Abdomen limited area? Add comment if clarification [...] MDReport Verified Date/Time: 01/14/2018 10:23:02 Reading Location: [facility] C013X Ortho Consult Reading Room T4, [id number] 08:42:00 Test Item Value Reference Range Interpretation Comments FREE T4 (BEAKER) (test code = 655) 0.83 ng/dL 0.70-1.48 POCT-GLUCOSE [id number] 08:37:00 Test Item Value Reference Range Interpretation Comments POC-GLUCOSE METER 161 mg/dL 70-[address] [facility] 6720 ([facility]) (test code = [facility] 1538) [address] TSH/FREE T4 IF [id number] 08:05:00 Test Item Value Reference Range Interpretation Comments THYROID STIMULATING HORMONE 0.02 uIU/mL 0.35-4.94 L ([facility]) (test code = 772) VITAMIN B12 AND [id number] 07:42:00 Test Item Value Reference Range Interpretation Comments VITAMIN B12 (BEAKER) (test code = 1276 pg/mL 213-816 H 774) FOLATE ([facility]) (test code = 362) 8.8 ng/mL >=7.0 LIPID [id number] 07:14:00 Test Item Value Reference Range Interpretation Comments TRIGLYCERIDES (BEAKER) (test code = 171 mg/dL 540) CHOLESTEROL (BEAKER) (test code = 123 mg/dL 631) HDL CHOLESTEROL (BEAKER) (test code 25 mg/dL = 976) LDL CHOLESTEROL CALCULATED ([facility]) 64 mg/dL (test code = 633) Triglyceride Reference Range: Low Risk <150 Borderline 150-199 High Risk 200-499 Very High Risk >=500Cholesterol Reference Range: Low Risk <200 Borderline 200-239 High Risk >240HDL Cholesterol Reference Range: Low Risk >=60 High Risk <40LDL Cholesterol Reference Range: Optimal <100 Near Optimal 100-129 Borderline 130-159 High 160-189 Very High >=190TROPONIN [id number] 07:12:00 Test Item Value Reference Range Interpretation [...] acute neurological disease, and persistent tachyarrhythmia.URINALYSIS W/ [id number] 06:35:00 Test Item Value Reference Range Interpretation [...] 517) SOURCE(BEAKER) (test code = Urine, [place] 7053) [id number] 06:07:00 Test Item Value Reference Range Interpretation Comments MAGNESIUM (BEAKER) (test code = 1.8 mg/dL 1.6-2.6 627) [id number] 05:32:00 Test Item Value Reference Range Interpretation Comments MAGNESIUM (BEAKER) (test code = 2.5 mg/dL 1.6-2.6 627) COMPREHENSIVE METABOLIC [id number] 05:32:00 Test Item Value Reference Range Interpretation [...] NOT APPLICABLE FOR DIALYSIS PATIEN TS. PROTHROMBIN [id number] 05:10:00 Test Item Value Reference Range Interpretation [...] 0-1 PERCENT (BEAKER) (test code = 2801) [id number] 02:52:00 Test Item Value Reference Range Interpretation Comments PROCALCITONIN (BEAKER) (test code 0.41 ng/mL <0.05 H = 3036) SEPSIS RISK (ng/mL)Low: 0.05-0.50Intermediate: 0.51-2.00High: >=2.01LACTIC ACID, VENOUS, WHOLE [id number] 02:06:00 Test Item Value Reference Range Interpretation Comments LACTATE BLOOD VENOUS 1.3 mmol/L 0.5-2.2 Specime n slightly (2) (BEAKER) (test hemolyzed code = 2872) Effective 01/07/2016: Units/Reference Range ChangeNew: 0.5-2.2 mmol/L Previous: 5-20 mg/dLCOMPREHENSIVE METABOLIC [id number] 02:06:00 Test Item Value Reference Range Interpretation [...] S NOT APPLICABLE FOR DIALYSIS PATIEN TS. [id number] 02:04:00 Test Item Value Reference Range Interpretation Comments LIPASE (BEAKER) (test code = 749) 730 U/L 8-78 H [id number] 02:04:00 Test Item Value Reference Range Interpretation Comments AMYLASE (BEAKER) (test code = 349) 226 U/L 25-125 H PROTHROMBIN [id number] 01:45:00 Test Item Value Reference Range Interpretation Comments PROTIME (BEAKER) (test code = 23.9 seconds 11.7-14.7 H 759) INR (BEAKER) (test code = 370) 2.1 <=5.9 RECOMMENDED COUMADIN/WARFARIN INR THERAPY RANGESSTANDARD DOSE: 2.0 - 3.0 Includes: PROPHYLAXIS forvenous thrombosis, systemic embolization; TREATMENT for venous thrombosis and/or pulmonary embolus.HIGH RISK: Target INR is 2.5-3.5 for patients with mechanical heart valves.[id number] 01:45:00 Test Item Value Reference Range Interpretation Comments PARTIAL THROMBOPLASTIN TIME 32.4 seconds 22.5-36.0 (BEAKER) (test code = 760) CBC W/PLT COUNT & AUTO [id number] 01:38:00 Test Item Value Reference Range Interpretation [...] % 0-1 PERCENT (BEAKER) (test code = 7411)
[2021-03-23] MEDS ORDERED: DERMABOND SKIN ADHESIVE TOP ONE (16:35)
[2021-03-23] MEDS ORDERED: TETANUS & DIPHTHERIA TOX,ADULT 0.5 ML VIAL ONE (16:35)
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
[2021-03-23] MEDS ORDERED: TRAMADOL HCL 50 MG TAB ONE (17:19)
[2021-03-23 18:12] VITALS: BP 117/68; TEMP 98.7; O2SAT 98
== END 2021-03-23 17:21 | disposition home or self-care (01) ==
LOC: ER 14:08
PROC: 0JQH0ZZ Repair Left Lower Arm Subcutaneous Tissue and Fascia, Open Approach (ICD-10-PCS; principal; 2021-03-23)
DX: S51.812A Laceration without foreign body of left forearm, initial encounter (principal); W22.8XXA Striking against or struck by other objects, initial encounter; Y92.89 Other specified places as the place of occurrence of the external cause; Z23 Encounter for immunization; Z88.1 Allergy status to other antibiotic agents; Z88.8 Allergy status to other drugs, medicaments and biological substances; E03.9 Hypothyroidism, unspecified; E11.9 Type 2 diabetes mellitus without complications; I10 Essential (primary) hypertension
CPT/HCPCS: 90471; 90714; 99284

== ENCOUNTER 2021-04-09 10:19 | Emergency (ER) | payer OTHER ==
--- OUTSIDE RECORDS SUMMARY | 2021-04-09 10:23 | XMS REPORT | Continuity of Care Document ---
:1940 Author Organization [facility] t Address [address] [place] [address] Care Team Providers Name Role Phone Juanpablo Iraheta MD Primary Care Physician Juanpablo Iraheta Attending Clinician [phone] Doctor Unassigned, Name Attending Clinician Unavailable Harrison CRAIN Attending Clinician Lucero DONALD Attending Clinician Unavailable Kunal STRATTON Attending Clinician Zach FAROOQ Attending Clinician Kadeem DONALD, A Attending Clinician Unavailable Sherin [...] [facility] 00 [place] Sepsis Sepsis Disease Active [facility] 00 [place] Paroxysmal Paroxysmal Disease Active [facility] A-fib A-fib 01[facility]14 [facility] 00 [place] Allergies, Adverse Reactions, Alerts Allergy Allergy Status Severity Reaction(s) Onset Inactive Treating Comm ents Source Name Type Date Date Clinician Gabriellarofmarti Propensi Active [facility]ching [facility] - adverse 00:00: Medical reaction 00 [facility] [place] Drug Active Other (See Internal [facility] ban Intolera Comments) 01-14 bleeding Mindy es - nce 00:00: Medical 00 [place] Family History Family Member Diagnosis Comments Start Date Stop Date Source Natural father Heart disease [facility] Natural mother Heart disease [facility] Social History Social Habit Start Date Stop Date Quantity Comments Source Sex Assigned At [facility] Tobacco use and 2018-11-09 2018-11-09 Never used [facility] - exposure 00:00:00 00:00:00 [facility] Alcohol intake 2018-11-09 2018-11-09 [facility]00 non-drinker of Medical nter alcohol (finding) Smoking Status Start Date Stop Date Source Never smoker [facility] edical [place] Medications Ordered Filled Start Stop Current Ordering Indication Dosage Frequency Signature Comments Components Source Medication Medication Date Date Medication? Clinician (SIG) Name Name cholecalcif Yes 46485B Take [facility], 3-07 50,000 [facility] - vitamin D3, 12:12: Units by Mt dical 50,000 unit 28 mouth once Ce [...] MG tablet 12:12: daily. Medica l 27 [place] losartan Yes 100mg QD Take [address] (COZAAR) 3-07 mg by [facility] - 100 MG 12:12: mouth Medical tablet 27 daily. [place] methscopola Yes 5mg QD Take 5 mg [...] 00:00: mouth Medical tablet 00 daily . [place] gabapentin Yes 600mg Q.[id number] Take [address] (NEURONTIN) 4-16 [id number] mg by L ukes - 600 MG [...] 00:00:00 (1 of 1 - Medical Center [id number] PCV13) [code = PNEUMOCOCCAL 65+ YRS (1 of 1 - [id number] PCV13)] Encounters Start End Encounter Admission Attending Care Care Encounter Source Date/Time Date/Time Type Type Clinicians Facility Department ID 2021-04-06 2021-04-06 Outpatient [facility]iel [facility] [id number] 00:00:00 00:00:00 Dany [id number] Juanpablo [id number] 2021-03-24 2021-03-24 Orders Doctor MIRA 1.2.840.114 [id number] 00:00:00 00:00:00 Only Unassigned, PABLO [id number] [place] [facility] 4.2.7.2.686 [id number] 2021-03-20 2021-03-20 Outpatient [facility] [id number] 00:00:00 00:00:00 Dany [id number] Juanpablo [id number] 2021-03-18 2021-03-18 Telephone Harrison TXMADHAV 1.2.749.847 [id number] 00:00:00 00:00:00 Pamela PRIMARY [id number] CARE 4.2.7.2.686 GILSUM [id number] 2021-03-16 2021-03-16 Transition Guillermina Barkershakira 1.2.840.114 [id number] 00:00:00 00:00:00 of Care Chelsey Dunney [id number] [place] 4.2.7.2.686 [id number] 2021-03-11 2021-03-13 [facility] Dacia Syed 1.2.840.114 [id number] 02:03:00 17:36:00 Encounter Letitia Mcdonald [id number] [facility] 4.2.7.2.686 [id number] 2021-03-12 2021-03-12 Case MEHDI Serrano 1.2.499.254 [id number] 00:00:00 00:00:00 Management [facility] [id number] [facility] 4.2.7.2.686 [id number] 2021-02-20 2021-02-20 Orders Doctor MEYERS 1.2.840.114 [id number] 00:00:00 00:00:00 Only Unassigned, PABLO 350.1.13.10 [facility] 4.2.7.2.686 [id number] 2021-01-21 2021-01-21 Orders Doctor MEYERS 1.2.840.114 [id number] 00:00:00 00:00:00 Only Unassigned, PABLO 350.1.13.10 [facility] 4.2.7.2.686 [id number] 2021-01-08 2021-01-08 Orders Doctor MEYERS 1.2.840.114 [id number] 00:00:00 00:00:00 Only Unassigned, PABLO 350.1.13.10 [facility] 4.2.7.2.686 [id number] 2021-01-05 2021-01-05 Transition Kadeem Guillerminashakira 1.2.840.114 [id number] 00:00:00 00:00:00 of Care Todd Bates Bean 350.1.13.10 [place] 4.2.7.2.686 [id number] 2020-12-21 2021-01-02 [facility] Latoya Villagomez 1.2.8 40.114 [id number] 05:34:00 18:49:00 Encounter Fabrizio Samuels [place] 350.1.13.10 [facility] 4.2.7.2.686 Tiesha Palomino [id number] 2020-12-27 2020-12-27 Surgery Dacia 1.2.840.114 [id number] 14:55:00 16:17:00 [place] 350.1.13.10 [facility] 4.2.7.2.686 [id number] 2020-12-22 2020-12-22 Surgery [facility] 1.2.975.114 [id number] 10:40:00 11:14:00 ICAL 350.1.13.10 [facility] 4.2.7.2.686 [facility] [id number] 2020-12-19 2020-12-19 Outpatient [facility] [id number] 00:00:00 00:00:00 Dany [id number] Juanpablo [id number] 2020-11-17 2020-11-17 Outpatient [facility] [id number] 00:00:00 00:00:00 Dany [id number] Juanpablo [id number] 2020-11-10 2020-11-10 Outpatient [facility] [id number] 00:00:00 00:00:00 Dany [id number] Juanpablo [id number] 2020-10-27 2020-10-27 Outpatient [facility] [id number] 00:00:00 00:00:00 Dany [id number] Juanpablo [id number] 2020-10-27 2020-10-27 Outpatient [facility] [id number] 00:00:00 00:00:00 Dany [id number] Juanpablo [id number] 2020-10-17 2020-10-17 Outpatient [facility] [id number] 00:00:00 00:00:00 Dany [id number] Juanpablo [id number] 2020-09-23 2020-09-23 Outpatient [facility] [id number] 00:00:00 00:00:00 Dany Rosario-218f-[id number] Juanpablo [id number] 2020-09-08 2020-09-08 Outpatient [facility] [id number] 00:00:00 00:00:00 Dany [id number] Juanpablo [id number] [...] SOURCE(BEAKER) (test code = 2795) Urine, Voided [id number] 13:11:00 Test Item Value Reference Range Interpretation Comments LIPASE (BEAKER) (test code = 749) 45 U/L 8-78 BASIC METABOLIC [id number] 13:11:00 Test Item Value Reference Range Interpretation [...] APPLICABLE FOR DIALYSIS PATIEN TS. HEPATIC FUNCTION [id number] 13:11:00 Test Item Value Reference Range Interpretation [...] (test code = 14 U/L 6-55 347) [id number] 13:02:00 Test Item Value Reference Range Interpretation [...] PERCENT (BEAKER) (test code = 2801) TISSUE [id number] 13:06:00Surgical Pathology Report Case: [id number] Authorizing Provider: Luiz Hayes Collected: 03/14/2018 1115 Ordering Location: [facility] Endoscopy Received: 03/14/2018 1351 Services Pathologist: Mara Barboza MD Specimens: A) -Polyp, Duodenum B) - Stomach, Antrum, bx C) - Biopsy, Gastric, gastric body D) - Biopsy, Esophagus, random THIS ADDENDUM IS ISSUED TO REPORT THE RESULT OF IMMUNOHISTOCHEMICAL STUDY FOR HELICOBACTER PYLORI OM SPECIMEN B: - NEGATIVE CPT CODE: [id number] electronically signed by Mara Barboza MD on [...] MALIGNANCY SEEN Signing Pathologist Direct Phone Line: [phone] signed by Mara Barboza MD on 03/17/2018 at 10:35 [id number] X 4; 30599 X 2A. Polyp, duodenum. B. Stomach antrum. [...] the diagnostic report above:AMBER X 2 POCT-GLUCOSE [id number] 12:41:00 Test Item Value Reference Range Interpretation Comments POC-GLUCOSE METER 75 mg/dL 70-110 TESTED AT [facility] 67 ([facility]) (test code = [place] [address] 1538) BLOOD [id number] 06:00:00 Test Item Value Reference Range Interpretation Comments CULTURE (BEAKER) (test No growth in 5 days code = 1095) BLOOD [id number] 06:00:00 Test Item Value Reference Range Interpretation Comments CULTURE (BEAKER) (test No growth in 5 days code = 1095) POCT-GLUCOSE [id number] 12:32:00 Test Item Value Reference Range Interpretation Comments POC-GLUCOSE METER 217 mg/dL 70-110 H TESTED AT [facility] 6720 (BEAKER) (test code = MICAH Kaye [facility] 1538) [address] POCT-GLUCOSE [id number] 08:36:00 Test Item Value Reference Range Interpretation Comments POC-GLUCOSE METER 92 mg/dL 70-110 TESTED AT [facility] 6720 [facility] (test code = [facility] Mikki [facility] [address] 1538) COMPREHENSIVE METABOLIC [id number] 04:59:00 Test Item Value Reference Range Interpretation [...] S NOT APPLICABLE FOR DIALYSIS PATIEN TS. [id number] 04:50:00 Test Item Value Reference Range Interpretation Comments MAGNESIUM (BEAKER) (test code = 1.7 mg/dL 1.6-2.6 627) PROTHROMBIN [id number] 04:35:00 Test Item Value Reference Range Interpretation [...] PERCENT (BEAKER) (test code = 2801) POCT-GLUCOSE [id number] 22:13:00 Test Item Value Reference Range Interpretation Comments POC-GLUCOSE METER 194 mg/dL 70-110 H TESTED AT [place] [address] [facility] (test code = [facility] 1538) [address] POCT-GLUCOSE [id number] 18:14:00 Test Item Value Reference Range Interpretation Comments POC-GLUCOSE METER 195 mg/dL 70-110 H TESTED AT [place] [address] ([facility] (test code = [facility] 1538) [address] POCT-GLUCOSE [id number] 12:20:00 Test Item Value Reference Range Interpretation Comments POC-GLUCOSE METER 224 mg/dL 70-110 H TESTED AT [place] [address] ([facility] (test code = [facility] 1538) [address] [id number] 08:55:00 Test Item Value Reference Range Interpretation Comments LIPASE (BEAKER) (test code = 749) 471 U/L 8-78 H POCT-GLUCOSE [id number] 08:12:00 Test Item Value Reference Range Interpretation Comments POC-GLUCOSE METER 128 mg/dL 70-110 H TESTED AT [place] [address] ([facility]) (test code = [facility] 1538) [address] [id number] 04:12:00 Test Item Value Reference Range Interpretation Comments T3 TOTAL (BEAKER) (test code = 656) 41 ng/dL 48-159 L T3, [id number] 04:11:00 Test Item Value Reference Range Interpretation Comments T3 FREE (BEAKER) (test code = 908) 1.31 pg/mL 1.71-3.71 L COMPREHENSIVE METABOLIC [id number] 04:01:00 Test Item Value Reference Range Interpretation [...] S NOT APPLICABLE FOR DIALYSIS PATIEN TS. [id number] 03:54:00 Test Item Value Reference Range Interpretation Comments MAGNESIUM (BEAKER) (test code = 1.7 mg/dL 1.6-2.6 627) PROTHROMBIN [id number] 03:53:00 Test Item Value Reference Range Interpretation [...] PERCENT (BEAKER) (test code = 2801) POCT-GLUCOSE [id number] 22:34:00 Test Item Value Reference Range Interpretation Comments POC-GLUCOSE METER 252 mg/dL 70-110 H TESTED AT [facility] 6720 (BEAKER) (test code = [place] 1538) [address] [id number] 19:36:00 Test Item Value Reference Range Interpretation Comments MAGNESIUM (BEAKER) (test code = 1.6 mg/dL 1.6-2.6 627) BASIC METABOLIC [id number] 19:36:00 Test Item Value Reference Range Interpretation [...] NOT APPLICABLE FOR DIALYSIS PATIEN TS. URINE [id number] 11:51:00 Test Item Value Reference Range Interpretation Comments CULTURE ([facility]) (test code = 1095) No growth POCT-GLUCOSE [id number] 11:42:00 Test Item Value Reference Range Interpretation Comments POC-GLUCOSE METER 205 mg/dL 70-110 H TESTED AT [facility] 67 ([facility]) (test code = [facility] [place] 1538) [address] POCT-GLUCOSE [id number] 08:08:00 Test Item Value Reference Range Interpretation Comments POC-GLUCOSE METER 119 mg/dL 70-110 H TESTED AT [place] [address] ([facility]) (test code = [facility] 1538) [address] C. DIFFICILE GDH [id number] 07:40:00 Test Item Value Reference Range Interpretation Comments CDT TOXIN (test code Negative Negative = [id number]) CDT GDH ANTIGEN Positive Negative A C. difficile present but (test code = toxin not detec leesa. [id number]) Indicates colon ization with non-toxige lizbeth strain [...] HOSPITAL Microbiology Lab prior to clinical use.POCT-GLUCOSE [id number] 06:37:00 Test Item Value Reference Range Interpretation Comments POC-GLUCOSE METER 141 mg/dL 70-110 H TESTED AT [facility] 6720 ([facility]) (test code = [facility] [place] 1538) [address] COMPREHENSIVE METABOLIC [id number] 04:48:00 Test Item Value Reference Range Interpretation Comments TOTAL PROTEIN 4.7 gm/dL 6.0-8.3 L ([facility]) (test code = 770) ALBUMIN ([facility]) 2.7 g/dL 3.5-5.0 L (test [...] NOT APPLICABLE FOR DIALYSIS PATIEN TS. PROTHROMBIN [id number] 04:40:00 Test Item Value Reference Range Interpretation Comments PROTIME (BEAKER) (test code = 23.8 seconds 11.7-14.7 H 759) INR (BEAKER) (test code = 370) 2.1 <=5.9 RECOMMENDED COUMADIN/WARFARIN INR THERAPY RANGESSTANDARD DOSE: 2.0 - 3.0 Includes: PROPHYLAXIS forvenous thrombosis, systemic embolization; TREATMENT for venous thrombosis and/or pulmonary embolus.HIGH RISK: Target INR is 2.5-3.5 for patients with mechanical heart valves.While on warfarin.[id number] 04:29:00 Test Item Value Reference Range Interpretation Comments MAGNESIUM (BEAKER) (test code = 2.0 mg/dL 1.6-2.6 627) CBC W/PLT COUNT & AUTO [id number] 04:11:00 Test Item Value Reference Range Interpretation [...] PERCENT (BEAKER) (test code = 2801) POCT-GLUCOSE [id number] 22:19:00 Test Item Value Reference Range Interpretation Comments POC-GLUCOSE METER 266 mg/dL 70-110 H TESTED AT [facility] 67 (BEAKER) (test code = MICAH Kaye [facility] 1538) [address] [id number] 17:54:00 Test Item Value Reference Range Interpretation Comments POTASSIUM (BEAKER) (test code = 4.2 meq/L 3.5-5.1 379) [id number] 17:23:00 Test Item Value Reference Range Interpretation Comments MAGNESIUM (BEAKER) (test code = 1.7 mg/dL 1.6-2.6 627) POCT-GLUCOSE [id number] 12:41:00 Test Item Value Reference Range Interpretation Comments POC-GLUCOSE METER 111 mg/dL 70-110 H TESTED AT [place] [address] ([facility] (test code = MICAH Kaye [facility] 1538) [address] [id number] 12:40:00 Test Item Value Reference Range Interpretation Comments POTASSIUM (BEAKER) (test code = 3.5 meq/L 3.5-5.1 379) POCT-GLUCOSE [id number] 10:05:00 Test Item Value Reference Range Interpretation Comments POC-GLUCOSE METER 94 mg/dL 70-110 TESTED AT [place] [address] (BEAKER) (test code = MICAH Kaye [facility] [address] 1538) COMPREHENSIVE METABOLIC [id number] 05:47:00 Test Item Value Reference Range Interpretation [...] S NOT APPLICABLE FOR DIALYSIS PATIEN TS. [id number] 05:44:00 Test Item Value Reference Range Interpretation Comments MAGNESIUM (BEAKER) (test code = 2.0 mg/dL 1.6-2.6 627) PROTHROMBIN [id number] 05:37:00 Test Item Value Reference Range Interpretation Comments PROTIME (BEAKER) (test code = 24.0 seconds 11.7-14.7 H 759) INR (BEAKER) (test code = 370) 2.2 <=5.9 RECOMMENDED COUMADIN/WARFARIN INR THERAPY RANGESSTANDARD DOSE: 2.0 - 3.0 Includes: PROPHYLAXIS forvenous thrombosis, systemic embolization; TREATMENT for venous thrombosis and/or pulmonary embolus.HIGH RISK: Target INR is 2.5-3.5 for patients with mechanical heart valves.PROTHROMBIN [id number] 05:36:00 Test Item Value Reference Range Interpretation [...] valves.While on warfarin.CBC W/PLT COUNT & AUTO [id number] 05:35:00 Test Item Value Reference Range Interpretation [...] EOSINOPHILS ABSOLUTE COUNT 0.06 K/ L 0.04-0.36 ([facility]) (test code = 416) BASOPHILS ABSOLUTE COUNT ([facility]) 0.01 K/ L 0.01-0.08 (test code = 417) IMMATURE GRANULOCYTES-RELATIVE 1 % 0-1 PERCENT ([facility]) (test code = 2801) POCT-GLUCOSE [id number] 23:56:00 Test Item Value Reference Range Interpretation Comments POC-GLUCOSE METER 105 mg/dL 70-110 TESTED AT [facility] 67 ([facility]) (test code = MICAH Kaye [facility] 1538) [address] TROPONIN [id number] 13:02:00 Test Item Value Reference Range Interpretation Comments TROPONIN I ([facility]) (test code = 0.02 ng/mL [...] Reference Range Interpretation Comments B-TYPE NATRIURETIC PEPTIDE ([facility]) 975 pg/mL 0-100 H (test code = 700) POCT-GLUCOSE [id number] 12:18:00 Test Item Value Reference Range Interpretation Comments POC-GLUCOSE METER 175 mg/dL 70-110 H TESTED AT [facility] 67 ([facility]) (test code = [facility] 1538) [address] U/S, ABDOMINAL, [id number] 10:23:00Abdomen limited area? Add comment if clarification [...] MDReport Verified Date/Time: 01/14/2018 10:23:02 Reading Location: [facility] C013X Ortho Consult Reading Room T4, [id number] 08:42:00 Test Item Value Reference Range Interpretation Comments FREE T4 (elmenus) (test code = 655) 0.83 ng/dL 0.70-1.48 POCT-GLUCOSE [id number] 08:37:00 Test Item Value Reference Range Interpretation Comments POC-GLUCOSE METER 161 mg/dL 70-110 H TESTED AT [facility] 6720 (elmenus) (test code = [facility] 1538) [address] TSH/FREE T4 IF [id number] 08:05:00 Test Item Value Reference Range Interpretation Comments THYROID STIMULATING HORMONE 0.02 uIU/mL 0.35-4.94 L (elmenus) (test code = 772) VITAMIN B12 AND [id number] 07:42:00 Test Item Value Reference Range Interpretation Comments VITAMIN B12 ([facility]menus) (test code = 1276 pg/mL 213-816 H 774) FOLATE (elmenus) (test code = 362) 8.8 ng/mL >=7.0 LIPID [id number] 07:14:00 Test Item Value Reference Range Interpretation [...] Borderline 130-159 High 160-189 Very High >=190TROPONIN [id number] 07:12:00 Test Item Value Reference Range Interpretation [...] acute neurological disease, and persistent tachyarrhythmia.URINALYSIS W/ [id number] 06:35:00 Test Item Value Reference Range Interpretation [...] 517) SOURCE(BEAKER) (test code = Urine, [place] 9311) [id number] 06:07:00 Test Item Value Reference Range Interpretation Comments MAGNESIUM (BEAKER) (test code = 1.8 mg/dL 1.6-2.6 627) [id number] 05:32:00 Test Item Value Reference Range Interpretation Comments MAGNESIUM (BEAKER) (test code = 2.5 mg/dL 1.6-2.6 627) COMPREHENSIVE METABOLIC [id number] 05:32:00 Test Item Value Reference Range Interpretation [...] NOT APPLICABLE FOR DIALYSIS PATIEN TS. PROTHROMBIN [id number] 05:10:00 Test Item Value Reference Range Interpretation [...] 0-1 PERCENT (BEAKER) (test code = 2801) [id number] 02:52:00 Test Item Value Reference Range Interpretation Comments PROCALCITONIN (BEAKER) (test code 0.41 ng/mL <0.05 H = 3036) SEPSIS RISK (ng/mL)Low: 0.05-0.50Intermediate: 0.51-2.00High: >=2.01LACTIC ACID, VENOUS, WHOLE [id number] 02:06:00 Test Item Value Reference Range Interpretation Comments LACTATE BLOOD VENOUS 1.3 mmol/L 0.5-2.2 Specime n slightly (2) (BEAKER) (test hemolyzed code = 2872) Effective 01/07/2016: Units/Reference Range ChangeNew: 0.5-2.2 mmol/L Previous: 5-20 mg/dLCOMPREHENSIVE METABOLIC [id number] 02:06:00 Test Item Value Reference Range Interpretation [...] S NOT APPLICABLE FOR DIALYSIS PATIEN TS. [id number] 02:04:00 Test Item Value Reference Range Interpretation Comments LIPASE (BEAKER) (test code = 749) 730 U/L 8-78 H [id number] 02:04:00 Test Item Value Reference Range Interpretation Comments AMYLASE (BEAKER) (test code = 349) 226 U/L 25-125 H PROTHROMBIN [id number] 01:45:00 Test Item Value Reference Range Interpretation Comments PROTIME (BEAKER) (test code = 23.9 seconds 11.7-14.7 H 759) INR (BEAKER) (test code = 370) 2.1 <=5.9 RECOMMENDED COUMADIN/WARFARIN INR THERAPY RANGESSTANDARD DOSE: 2.0 - 3.0 Includes: PROPHYLAXIS forvenous thrombosis, systemic embolization; TREATMENT for venous thrombosis and/or pulmonary embolus.HIGH RISK: Target INR is 2.5-3.5 for patients with mechanical heart valves.[id number] 01:45:00 Test Item Value Reference Range Interpretation Comments PARTIAL THROMBOPLASTIN TIME 32.4 seconds 22.5-36.0 (BEAKER) (test code = 760) CBC W/PLT COUNT & AUTO [id number] 01:38:00 Test Item Value Reference Range Interpretation [...]
[2021-04-09 11:41] LABS: Absolute Lymphocytes (CBC) 0.7 K/uL (0.7-4.9); Basophils % 0.3 % (0-1.3); Hematocrit 22.8 % (36.0-45.0); Lymphocytes % 17.3 % (15.3-44.8); MPV 8.6 fL (7.6-11.3); RBC Red Blood Cell Count 2.66 M/uL (3.86-4.86)
[2021-04-09 11:58] LABS: Protime INR 2.08
--- NOTE | 2021-04-09 12:01 | RAD REPORT ---
EXAM DESCRIPTION: RAD - Chest Single View - 04/09/2021 11:51 am CLINICAL HISTORY: DYSPNEA Chest pain. COMPARISON: Chest Single View dated 03/10/2021; Chest Single View dated 08/05/2020; Chest Single View d ated 08/01/2020; Chest Single View dated 07/29/2020 FINDINGS: Portable technique limits examination quality. The lungs are grossly clear. The heart is upper limit of normal in size. No displaced fractures. IMPRESSION: No acute intrathoracic process suspected.
[2021-04-09 12:32] LABS: ALT/SGPT 25 U/L (12-78); AST/SGOT 36 U/L (15-37); Albumin 2.6 g/dL (3.4-5.0); Alkaline Phosphatase 45 U/L (45-117); BUN Blood Urea Nitrogen 23 mg/dL (7-18); Bicarbonate 39 mmol/L (21-32); Bilirubin Direct 0.2 mg/dL (0-0.2); Bilirubin Total 0.6 mg/dL (0.2-1.0); Glucose Level 137 mg/dL (74-106); Magnesium 1.7 mg/dL (1.8-2.4); NT PRO-BNP 1192 pg/mL (<450); Protein, Total 5.6 g/dL (6.4-8.2); Sodium Level 149 mmol/L (136-145); Troponin (Emerg Dept Use Only) < 0.02 ng/mL (0.0-0.045)
[2021-04-09 12:33] LABS: Potassium 2.1 mmol/L (3.5-5.1)
[2021-04-09 12:34] LABS: Urine Blood Negative (Negative); Urine Glucose Negative (Negative); Urine Protein Negative (Negative); Urine Specific Gravity 1.015 (1.005-1.030); Urine pH 8.5 (5.0-7.0)
[2021-04-09 12:48] LABS: Urine Bacteria <20 /HPF (<20); Urine RBC <5 /HPF (NONE SEEN)
[2021-04-09] MEDS ORDERED: POTASSIUM CL SA 10 MEQ TAB PO ONE (13:08)
[2021-04-09] MEDS ORDERED: NS KCL 20MEQ 1,000 ML IV ONE (13:08)
[2021-04-09] MEDS ORDERED: Magnesium Sulfate 2gm IVPB 2 G/50 ML BAG IV ONE (13:23)
--- NOTE | 2021-04-09 15:05 | RAD REPORT ---
EXAM DESCRIPTION: Are present in L3 and L4. ABD PAIN, history of diverticulitis, pancreatitis and diabetes, prior history of GI bleed COMPARISON: Abdomen Pelvis W Contrast dated 03/10/2021; Abdomen Pelvis W Contrast dated 12/20/2020 TECHNIQUE: Biphasic, helical CT imaging of the abdomen and pelvis was performed following 100 ml non -ionic IV contrast. No oral contrast was given. All CT scans are performed using dose optimization technique as appropriate and may include automated exposure control or mA/KV adjustment according to patient size. FINDINGS: No suspicious findings in the lung bases. Fibrotic stranding matches comparison. The liver, spleen, and pancreas show no suspicious findings. Multiple small liver cysts are present s imilar to comparison. No gallbladder or biliary tree abnormality. Symmetric renal function is seen with no hydronephrosis or suspicious renal mass. No pyelonephritis o r acute parenchymal process. No bladder abnormalities. No adrenal abnormalities. Uterus is absent. Ov migdalia are absent or atrophic. No adnexal mass. Pelvic floor laxity is present. No dilated bowel loops or bowel wall thickening. Left-sided diverticulosis present without diverticul itis. No free air, free fluid or inflammatory stranding. No hernia, mass or bulky lymphadenopathy. No suspicious bony findings. Advanced disc and bone degenerative changes are present. Vertebroplasty changes IVC filter is in place. No thrombus seen in the infrarenal venous vasculature. IMPRESSION: Contrast enhanced CT abdomen and pelvis showing no acute or emergent finding. Nonacute findings detailed in the body of the report.
--- NOTE | 2021-04-09 16:00 | EDPHYS ---
Physician Documentation [facility] Name: Emelia Payan Age: 80 yrs Sex: Female : 1940 Arrival Date: 04/09/2021 Time: 10:47 Bed 23 Private MD: ED Physician Michael Tellez HPI: 04/09 14:00 This 80 yrs old Female presents to ER via EMS with complaints of general jr8 weakness . 14:00 This is a 80-year-old female that stated that she had been feeling increased general jr8 fatigue and weakness over the past 24 hours.. 15:57 Severity of symptoms: At their worst the symptoms were moderate in the emergency jr8 department the symptoms are unchanged. It is unknown whether or not the patient has had similar symptoms in the past. The patient has not recently seen a physician. Historical: - Allergies: 11:07 Bactrim; jd3 11:07 Cipro; jd3 11:07 Xarelto; jd3 11:07 Zosyn; jd3 - Home Meds: 11:07 atorvastatin 40 mg Oral tab 1 tab once daily [Active]; Dexilant 60 mg Oral CpDB 1 cap jd3 once daily [Active]; clonazepam 0.5 mg Oral tab 1 tab as needed [Active]; glipizide 2.5 mg Oral tr24 1 tabs once daily [Active]; Klor-Con 10 10 mEq Oral TbER 1 tab once daily [Active]; hydrocortisone 20 mg Oral tab 1.5 tabs 2 times per day [Active]; Humatrope injection once daily [Active]; levothyroxine 112 mcg tab 1 tab once daily [Active]; methscopolamine 5 mg Oral tab 1 tab daily [Active]; fenofibrate 145 MG Oral 1 tab once daily [Active]; Losartan potassium 100 mg 1 tab daily [Active]; Omnitrope 5 mg/1.5 mL (3.3 mg/mL) subcutaneous crtg once daily [Active]; sotalol 160 mg Oral tab 1 tab 2 times per day [Active]; Vitamin D3 50,000 units Oral tab twice a day [Active]; amlodipine 5 mg tab 2 tabs once daily [Active]; warfarin 2 mg Oral tab 1 tab once daily [Active]; liothyronine 5 mcg Oral tab 1 tab once daily [Active]; - PMHx: 11:07 Diabetes - IDDM; Hypothyroidism; CVA; Hyperlipidemia; Hypertension; L groin blood clot; jd3 DVT; Anxiety; adrenal insuficiency; CHF; Atrial Fib; lymphedema; Pancreatitis; - PSHx: 11:07 filter; jd3 - Immunization history:: Adult Immunizations up to date. - Social history:: Smoking status: Patient denies any tobacco usage or history of. ROS: 16:01 Eyes: Negative for injury, pain, redness, and discharge, ENT: Negative for injury, jr8 pain, and discharge, Neck: Negative for injury, pain, and swelling, Cardiovascular: Negative for chest pain, palpitations, and edema, Respiratory: Negative for shortness of breath, cough, wheezing, and pleuritic chest pain, Abdomen/GI: Negative for abdominal pain, nausea, vomiting, diarrhea, and constipation, Back: Negative for injury and pain, MS/Extremity: Negative for injury and deformity, Skin: Negative for injury, rash, and discoloration, Neuro: Negative for headache, weakness, numbness, tingling, and seizure. 16:01 Constitutional: Positive for fatigue, malaise. Exam: 15:57 Constitutional: This is a well developed, well nourished patient who is awake, alert, jr8 and in no acute distress. Eyes: Pupils equal round and reactive to light, extra-ocular motions intact. Lids and lashes normal. Conjunctiva and sclera are non-icteric and not injected. Cornea within normal limits. Periorbital areas with no swelling, redness, or edema. ENT: Nares patent. No nasal discharge, no septal abnormalities noted. Tympanic membranes are normal and external auditory canals are clear. Oropharynx with no redness, swelling, or masses, exudates, or evidence of obstruction, uvula midline. Mucous membranes moist. Neck: Trachea midline, no thyromegaly or masses palpated, and no cervical lymphadenopathy. Supple, full range of motion without nuchal rigidity, or vertebral point tenderness. No Meningismus. Cardiovascular: Regular rate and rhythm with a normal S1 and S2. No gallops, murmurs, or rubs. Normal PMI, no JVD. No pulse deficits. Respiratory: Lungs have equal breath sounds bilaterally, clear to auscultation and percussion. No rales, rhonchi or wheezes noted. No increased work of breathing, no retractions or nasal flaring. Abdomen/GI: Soft, non-tender, with normal bowel sounds. No distension or tympany. No guarding or rebound. No evidence of tenderness throughout. Back: No spinal tenderness. No costovertebral tenderness. Full range of motion. Skin: Warm, dry with normal turgor. Normal color with no rashes, no lesions, and no evidence of cellulitis. MS/ Extremity: Pulses equal, no cyanosis. Neurovascular intact. Full, normal range of motion. Neuro: Awake and alert, GCS 15, oriented to person, place, time, and situation. Cranial nerves II-XII grossly intact. Motor strength 5/5 in all extremities. Sensory grossly intact. Vital Signs: 11:09 BP 169 / 73; Pulse 63; Resp 15 S; Temp 97.6(TE); Pulse Ox 99% on R/A; Weight 76.2 kg jd3 (R); Height 5 ft. 7 in. (170.18 cm) (R); Pain 7/10; 13:00 BP 153 / 68; Pulse 61; Resp 18; Pulse Ox 99% on R/A; tr6 15:19 BP 176 / 72; Pulse 57; Resp 18; Pulse Ox 99% on R/A; tr6 11:09 Body Mass Index 26.31 (76.20 kg, 170.18 cm) jd3 MDM: 11:03 Patient medically screened. jr8 15:57 Data reviewed: vital signs, nurses notes, lab test result(s), EKG, radiologic studies, jr8 plain films. Data interpreted: Pulse oximetry: on room air is 99 %. Interpretation: normal. Counseling: I had a detailed discussion with the patient and/or guardian regarding: the historical points, exam findings, and any diagnostic results supporting the discharge/admit diagnosis, lab results, radiology results, the need for outpatient follow up, a family practitioner, to return to the emergency department if symptoms worsen or persist or if there are any questions or concerns that arise at home. Response to treatment: the patient's symptoms have markedly improved after treatment, patient is well hydrated. ED course: Patient feeling much better post fluid resuscitation and electrolyte administration. Hemodynamically stable at this time. No acute findings on CT of the abdomen or pelvis. Blood work otherwise stable. Will have patient follow-up with PCP in the next few days. Knows to come back if worse.. 04/09 11:21 Order name: Basic Metabolic Panel ms 04/09 11:21 Order name: CBC with Diff; Complete Time: 12:42 ms 04/09 11:21 Order name: LFT's; Complete Time: 12:42 ms 04/09 11:21 Order name: Magnesium; Complete Time: 12:42 ms 04/09 11:21 Order name: NT PRO-BNP; Complete Time: 12:42 ms 04/09 11:21 Order name: PT-INR; Complete Time: 12:42 ms 04/09 11:21 Order name: Troponin (emerg Dept Use Only); Complete Time: 12:42 ms 04/09 11:22 Order name: Basic Metabolic Panel; Complete Time: 12:42 EDPR 04/09 11:24 Order name: Basic Metabolic Panel [facility] 04/09 11:24 Order name: CBC with Diff [facility] 04/09 11:21 Order name: XRAY Chest (1 view); Complete Time: 12:42 ms 04/09 11:24 Order name: Type And Screen; Complete Time: 12:42 [facility] 04/09 11:37 Order name: Blood Culture Adult (2) [facility] 04/09 11:37 Order name: Urine Microscopic Only; Complete Time: 12:55 [facility] 04/09 11:37 Order name: Lipase; Complete Time: 12:42 [facility] 04/09 12:34 Order name: Urine Dipstick-Ancillary; Complete Time: 12:42 [facility] 04/09 13:14 Order name: SARS-COV-2 RT PCR; Complete Time: 13:55 [facility] 04/09 14:33 Order name: CT Abd/Pelvis - IV Contrast Only; Complete Time: 15:08 [facility] 04/09 11:21 Order name: EKG; Complete Time: 11:22 ms 04/09 11:21 Order name: Cardiac monitoring; Complete Time: 11:24 ms 04/09 11:21 Order name: EKG - Nurse/Tech; Complete Time: 11:24 ms 04/09 11:21 Order name: IV Saline Lock; Complete Time: 11:24 ms 04/09 11:21 Order name: Labs collected and sent; Complete Time: 11:24 ms 04/09 11:21 Order name: O2 Per Protocol; Complete Time: 11:24 ms 04/09 11:21 Order name: O2 Sat Monitoring; Complete Time: 11:25 ms 04/09 11:24 Order name: EKG - Nurse/Tech; Complete Time: 11:24 [facility] 04/09 11:37 Order name: Straight Cath; Complete Time: 12:44 jr8 Administered Medications: 12:57 Drug: Potassium Chloride 20 mEq Route: IV; Rate: calculated rate; Site: left wrist; tr6 12:57 Drug: NS 0.9% 1000 ml Route: IV; Rate: 75 ml/hr; Site: left wrist; tr6 14:02 Drug: Magnesium Sulfate 2 grams Route: IVPB; Infused Over: 2 hrs; Site: left wrist; tr6 Disposition: 19:01 Co-signature as Attending Physician, Michael Tellez MD I agree with the assessment and kdr plan of care. Disposition Summary: 04/09/21 16:00 Discharge Ordered Location: Home jr Problem: new jr8 Symptoms: have improved jr8 Condition: Stable jr8 Diagnosis - Hypokalemia jr8 - Hypomagnesemia jr8 - Muscle weakness (generalized) jr8 Followup: jr8 - With: Private Physician - When: 2 - 3 days - Reason: Recheck today's complaints, Continuance of care, Re-evaluation by your physician Discharge Instructions: - Discharge Summary Sheet jr8 - Potassium Content of Foods jr8 - Hypomagnesemia jr8 - Weakness jr8 - Hypokalemia jr8 Forms: - Medication Reconciliation Form jr8 - Thank You Letter jr8 - Antibiotic Education jr8 - Prescription Opioid Use jr8 Prescriptions: - Potassium Chloride 20 meq Oral Packet - take 1 packet by ORAL route once daily for 3 days 1 packet in 6 (six) ounces of jr8 water or juice; Take after meal; 3 packet; Refills: 0, Product Selection Permitted Signatures: Dispatcher [facility] Michael Tellez MD MD kdr Roszak, Josh, PA PA jr8 Carole Del Real ms Owen Marrero RN RN jd3 Magda Muhammad RN RN tr6 Corrections: (The following items were deleted from the chart) 11:25 11:24 Cardiac monitoring ordered. tr6 jd3 11:25 11:24 IV Saline Lock ordered. tr6 jd3 11: 11:24 Labs collected and sent ordered. tr6 jd3 11:25 11:24 Oxygen Per Protocol ordered. tr6 jd3 11:25 11:24 O2 Sat Monitoring ordered. tr6 jd3 11:28 11:25 Chest Single View+RAD.RAD.BRZ ordered. EDMS EDMS 12:22 11:37 CORONAVIRUS+MR.LAB.BRZ ordered. EDMS EDMS 16:35 11:25 Basic Metabolic Panel ordered. EDMS EDMS 16:35 11:25 HEPATIC FUNCTION+C.LAB.BRZ ordered. EDMS EDMS 16:35 11:25 MAGNESIUM+C.LAB.BRZ ordered. EDMS EDMS 16:35 11:25 PROBNP+C.LAB.BRZ ordered. EDMS EDMS 16:35 11:25 TROPONIN (EMERG DEPT USE ONLY)+C.LAB.BRZ ordered. EDMS EDMS 16:38 11:25 CBC with Automated Diff ordered. EDMS EDMS 16:38 11:25 PROTIME (+INR)+COAG.LAB.BRZ ordered. EDMS EDMS
--- NOTE | 2021-04-09 16:00 | ER ---
Nurse's Notes [facility] Name: Emelia Payan Age: 80 yrs Sex: Female : 1940 Arrival Date: 04/09/2021 Time: 10:47 Bed 23 Private MD: Diagnosis: Hypokalemia;Hypomagnesemia;Muscle weakness (generalized) Presentation: 04/09 10:47 Method Of Arrival: EMS: [facility] tr6 11:01 Chief complaint: EMS states: "pt is reporting she got generalized weakness at about jd3 dinner time last night with some stomach pain. this am she is reporting some impending doom saying that this is it and she isn't going to make it. stable vitals. was in a-fib, but has converted to sinus rhythm. pt reports history of GI bleed and DVT to the left groin. has a filter in place to right sided neck chest area.". Coronavirus screen: At this time, the client does not indicate any symptoms associated with coronavirus-19. Ebola Screen: Patient negative for fever greater than or equal to 101.5 degrees Fahrenheit, and additional compatible Ebola Virus Disease symptoms. Initial Sepsis Screen: Does the patient meet any 2 criteria? No. Patient's initial sepsis screen is negative. Does the patient have a suspected source of infection? No. Patient's initial sepsis screen is negative. Risk Assessment: Do you want to hurt yourself or someone else? Patient reports no desire to harm self or others. Onset of symptoms was April 08, 2021. 11:01 Acuity: EDIS 3 jd3 Historical: - Allergies: 11:07 Bactrim; jd3 11:07 Cipro; jd3 11:07 Xarelto; jd3 11:07 Zosyn; jd3 - Home Meds: 11:07 atorvastatin 40 mg Oral tab 1 tab once daily [Active]; Dexilant 60 mg Oral CpDB 1 cap jd3 once daily [Active]; clonazepam 0.5 mg Oral tab 1 tab as needed [Active]; glipizide 2.5 mg Oral tr24 1 tabs once daily [Active]; Klor-Con 10 10 mEq Oral TbER 1 tab once daily [Active]; hydrocortisone 20 mg Oral tab 1.5 tabs 2 times per day [Active]; Humatrope injection once daily [Active]; levothyroxine 112 mcg tab 1 tab once daily [Active]; methscopolamine 5 mg Oral tab 1 tab daily [Active]; fenofibrate 145 MG Oral 1 tab once daily [Active]; Losartan potassium 100 mg 1 tab daily [Active]; Omnitrope 5 mg/1.5 mL (3.3 mg/mL) subcutaneous crtg once daily [Active]; sotalol 160 mg Oral tab 1 tab 2 times per day [Active]; Vitamin D3 50,000 units Oral tab twice a day [Active]; amlodipine 5 mg tab 2 tabs once daily [Active]; warfarin 2 mg Oral tab 1 tab once daily [Active]; liothyronine 5 mcg Oral tab 1 tab once daily [Active]; - PMHx: 11:07 Diabetes - IDDM; Hypothyroidism; CVA; Hyperlipidemia; Hypertension; L groin blood clot; jd3 DVT; Anxiety; adrenal insuficiency; CHF; Atrial Fib; lymphedema; Pancreatitis; - PSHx: 11:07 filter; jd3 - Immunization history:: Adult Immunizations up to date. - Social history:: Smoking status: Patient denies any tobacco usage or history of. Screenin:11 Abuse screen: Denies threats or abuse. Nutritional screening: No deficits noted. jd3 Tuberculosis screening: No symptoms or risk factors identified. Fall Risk IV access (20 points). Ambulatory Aid- None/Bed Rest/Nurse Assist (0 pts). Gait- Normal/Bed Rest/Wheelchair (0 pts) Mental Status- Oriented to own ability (0 pts). Total Dickens Fall Scale indicates No Risk (0-24 pts). Assessment: 11:09 General: Appears uncomfortable, Behavior is calm, cooperative, appropriate for age, jd3 Reports fatigue for 12-24 hours. Pain: Complains of pain in abdomen Quality of pain is described as sharp, tender. Neuro: Level of Consciousness is awake, alert, obeys commands, Oriented to person, place, time, situation. Cardiovascular: Capillary refill < 3 seconds Patient's skin is warm and dry. Rhythm is regular. Respiratory: Airway is patent Respiratory effort is even, unlabored, Respiratory pattern is regular, symmetrical, Denies cough, shortness of breath. GI: Abdomen is round non-distended, Abdomen is tender to palpation X 4 quads. Reports lower abdominal pain, Patient currently denies vomiting, bloody stool. : No signs and/or symptoms were reported regarding the genitourinary system. EENT: No signs and/or symptoms were reported regarding the EENT system. Derm: Skin is intact, Skin is dry, Skin is normal, Skin temperature is warm. Musculoskeletal: Circulation, motion, and sensation intact. Range of motion: intact in all extremities, Swelling present in right leg and left leg. 13:00 Reassessment: Patient appears in no apparent distress at this time. No changes from tr6 previously documented assessment. Patient and/or family updated on plan of care and expected duration. Pain level reassessed. taken to rest room. 18:12 Reassessment: Patient and/or family updated on plan of care and expected duration. Pain tr6 level reassessed. 18:12 Reassessment: pt assisted to rest room. tr6 Vital Signs: 11:09 BP 169 / 73; Pulse 63; Resp 15 S; Temp 97.6(TE); Pulse Ox 99% on R/A; Weight 76.2 kg j (R); Height 5 ft. 7 in. (170.18 cm) (R); Pain 7/10; 13:00 BP 153 / 68; Pulse 61; Resp 18; Pulse Ox 99% on R/A; tr6 15:19 BP 176 / 72; Pulse 57; Resp 18; Pulse Ox 99% on R/A; tr6 11:09 Body Mass Index 26.31 (76.20 kg, 170.18 cm) [facility] ED Course: 10:47 Patient arrived in ED. tr6 11:01 Owen Marrero RN is Primary Nurse. jd3 11:03 Patrick Delgado PA is PHCP. jr8 11:03 Michael Tellez MD is Attending Physician. jr8 11:07 Triage completed. jd3 11:09 Arm band placed on. jd3 11:11 Patient has correct armband on for positive identification. Bed in low position. Call j light in reach. Side rails up X2. Adult w/ patient. conveyor monitor on. Pulse ox on. NIBP on. 11:32 Maintain EMS IV. Dressing intact. Good blood return noted. Site clean \\T\\ dry. Gauge \\T\\ tr 6 site: 22 L FA. 11:51 XRAY Chest (1 view) In Process Unspecified. EDMS 13:42 No provider procedures requiring assistance completed. tr6 14:55 CT Abd/Pelvis - IV Contrast Only In Process Unspecified. EDMS 18:14 IV discontinued, intact, bleeding controlled, No redness/swelling at site. Pressure tr6 dressing applied. Administered Medications: 12:57 Drug: Potassium Chloride 20 mEq Route: IV; Rate: calculated rate; Site: left wrist; tr6 12:57 Drug: NS 0.9% 1000 ml Route: IV; Rate: 75 ml/hr; Site: left wrist; tr6 14:02 Drug: Magnesium Sulfate 2 grams Route: IVPB; Infused Over: 2 hrs; Site: left wrist; tr6 Outcome: 16:00 Discharge ordered by . jr8 18:13 Discharged to home via wheelchair, with family, wheeled out by RN and assisted to car tr6 18:13 Condition: stable 18:13 Discharge instructions given to patient, Instructed on discharge instructions, follow up and referral plans. medication usage, safety practices, Demonstrated understanding of instructions, follow-up care, medications, Prescriptions given X 1. 18:14 Patient left the ED. tr6 Signatures: Dispatcher [employer] EDMS Patrick Delgado PA PA jr8 Davies, Jonathon, RN RN jMagda Kenny RN RN tr6 Corrections: (The following items were deleted from the chart) 11:07 11:01 Onset of symptoms was April 09, 2021 shannon ortega 18:12 13:00 Reassessment: Patient appears in no apparent distress at this time. No changes tr6 from previously documented assessment. Patient and/or family updated on plan of care and expected duration. Pain level reassessed. tr6
[2021-04-09 18:30] VITALS: BP 124/63; TEMP 98.1; O2SAT 96
--- NOTE | 2021-04-10 10:53 | EKG ---
Test Date: 2021-04-09 Test Time: 11:22:13 Payroll Coordinator: MAHIN MEASUREMENT RESULTS: Intervals: Rate: 61 NV: 132 QRSD: 82 QT: 452 QTc: 455 [place]: P: 22 NV: 132 QRS: -5 T: -15 INTERPRETIVE STATEMENTS: Normal sinus rhythm Nonspecific ST and T wave abnormality Abnormal ECG Compared to ECG 03/10/2021 15:58:21 ST (T wave) deviation now present Electronically Signed On 04-10-21 10:48:37 CDT by Heladio Diaz
== END 2021-04-09 18:14 | disposition home or self-care (01) ==
LOC: ER 10:19
DX: E87.6 Hypokalemia (principal); E83.42 Hypomagnesemia; Z20.822 Contact with and (suspected) exposure to COVID-19; I10 Essential (primary) hypertension; E11.9 Type 2 diabetes mellitus without complications; Z79.4 Long term (current) use of insulin; I50.9 Heart failure, unspecified; I48.91 Unspecified atrial fibrillation; Z79.01 Long term (current) use of anticoagulants; Z88.1 Allergy status to other antibiotic agents; Z88.8 Allergy status to other drugs, medicaments and biological substances
CPT/HCPCS: 93005; 87040 ×2; 85025; 80048; 36415; 86900; 83735; 86850; 87205 ×4; 85610; 86901; 80076; 87077 ×2; 87186 ×2; 84484; 83690; 83880; 74177; 71045; 96375; 96374; 99284; U0003; Q9967; J3475; J3480; 81003; 81015

== ENCOUNTER 2021-04-19 13:42 | Inpatient (IN) | payer OTHER ==
--- OUTSIDE RECORDS SUMMARY | 2021-04-19 13:47 | XMS REPORT | Continuity of Care Document ---
:1940 Author Organization [facility] t Address [address] [place] [address] Care Team Providers Name Role Phone Juanpablo Iraheta MD Primary Care Physician Juanpablo Iraheta Attending Clinician [phone] Doctor Unassigned, Name Attending Clinician Unavailable Harrison [...] [facility]14 [facility] 00 [place] Sepsis Sepsis Disease Active [facility] 00 [place] Paroxysmal Paroxysmal Disease Active [facility] A-fib A-fib 01-14 [facility] 00 [place] Allergies, Adverse Reactions, Alerts Allergy Allergy Status Severity Reaction(s) Onset Inactive Treating Comm ents Source Name Type Date Date Clinician Gabriellarofmarti Propensi Active [facility]ching [facility] - adverse [facility]: Medical reaction 00 [facility] [place] Drug Active Other (See Internal [facility] ban Intolera Comments) 01-14 bleeding Mindy es - nce 00:00: Medical 00 [place] Family History Family Member Diagnosis Comments Start Date Stop Date Source Natural mother Heart disease [facility] Natural father Heart disease [facility] Social History Social Habit Start Date Stop Date Quantity Comments Source Sex Assigned At [facility] Tobacco use and 2018-11-09 2018-11-09 Never used [facility] - exposure 00:00:00 00:00:00 [facility] Alcohol intake 2018-11-09 2018[facility]11[facility]09 [facility] non-drinker of Medical nter alcohol (finding) Smoking Status Start Date Stop Date Source Never smoker [facility] edical [place] Medications Ordered Filled Start Stop Current Ordering Indication Dosage Frequency Signature Comments Components Source Medication Medication Date Date Medication? Clinician (SIG) Name Name cholecalcif Yes [id number] Take [facility] ghada, 3-07 50,000 [facility] - vitamin D3, 12:12: Units by Or dical 50,000 unit 28 mouth once Ce [...] MG tablet 12:12: daily. Medica l 27 [place] losartan Yes 100mg QD Take [address] (COZAAR) 3-07 mg by [facility] - 100 MG 12:12: mouth Medical tablet 27 daily. [place] methscopola Yes 5mg QD Take 5 mg [...] 00:00: mouth Medical tablet 00 daily . [place] gabapentin Yes 600mg Q.[id number] Take [address] (NEURONTIN) 4-16 [id number] mg by L ukes - 600 MG [...] 00:00:00 (1 of 1 - Medical Center [id number] PCV13) [code = PNEUMOCOCCAL 65+ YRS (1 of 1 - RLSW10_Egtjlzc PCV13)] Encounters Start End Encounter Admission Attending Care Care Encounter Source Date/Time Date/Time Type Type Clinicians Facility Department ID 2021-04-13 2021-04-13 [id number] [facility]:00:00 00:00:00 Dany [id number] Juanpablo [id number] 2021-04-06 2021-04-06 [facility] [id number] 00:00:00 00:00:00 Dany [id number] Juanpablo [id number] 2021-03-24 2021-03-24 Orders Doctor MIRA 1.2.840.114 [id number] 00:00:00 00:00:00 Only Unassigned, PABLO [id number] [place] [facility] 4.2.7.2.686 [id number] 2021-03-20 2021-03-20 Outpatient Esequiel [facility] [id number] 00:00:00 00:00:00 Dany [id number] Juanpablo [id number] 2021-03-18 2021-03-18 [facility] [id number] 00:00:00 00:00:00 Pamela PRIMARY 350.1.13.10 CARE 4.2.7.2.686 [place] [id number] 2021-03-16 2021-03-16 Transition Doyle Barker 1.2.840.114 [id number] 00:00:00 00:00:00 of Care Chelsey Del Angel [id number] [place] 4.2.7.2.686 [id number] 2021-03-11 2021-03-13 Hospital Dacia Syed 1.2.840.114 [id number] 02:03:00 17:36:00 Encounter Letitia Pablo 350.1.13.10 Hospital 4.2.7.2.686 [id number] 2021-03-12 2021-03-12 Case MEHDI Serrano [id number] 00:00:00 00:00:00 Management [facility] [id number] CLINICS 4.2.7.2.686 [id number] 2021-02-20 2021-02-20 Orders Doctor MIRA 1.2.840.114 [id number] 00:00:00 00:00:00 Only Unassigned, PABLO 350.1.13.10 [place] [facility] 4.2.7.2.686 [id number] 2021-01-21 2021-01-21 Orders Doctor MIRA 1.2.840.114 [id number] 00:00:00 00:00:00 Only Unassigned, PABLO 350.1.13.10 [place] [facility] 4.2.7.2.686 [id number] 2021-01-08 2021-01-08 Orders Doctor MIRA 1.2.840.114 [id number] 00:00:00 00:00:00 Only Unassigned, PABLO 350.1.13.10 [place] [facility] 4.2.7.2.686 [id number] 2021-01-05 2021-01-05 Transition Doyle Quan 1.2.840.114 [id number] 00:00:00 00:00:00 of Care Todd Del Angel 350.1.13.10 [place] 42.7.2.686 [id number] 2020-12-21 2021-01-02 [facility] Latoya Villagomez 1.2.8 40.114 [id number] 05:34:00 18:49:00 [facility]10 [facility]686 [facility]ha [id number] 100 2020-12-27 2020-12-27 Surgery Dacia 1.2.840.114 [id number] 14:55:00 16:17:00 Plaza 350.1.13.10 [facility] 4.2.7.2.686 [id number] 2020-12-22 2020-12-22 Surgery [facility] 1.2.101.234 [id number] 10:40:00 11:14:00 ICAL 350.1.13.10 [facility] 4.2.7.2.686 [facility] [id number] 2020-12-19 2020-12-19 [facility] [id number] 00:00:00 00:00:00 Dany [id number] Juanpablo [id number] 2020-11-17 2020-11-17 Outpatient Esequiel [facility] [id number] 00:00:00 00:00:00 Dany [id number] Juanpablo [id number] 2020-11-10 2020-11-10 Outpatient Esequiel [facility] [id number] 00:00:00 00:00:00 Dany [id number] Juanpablo [id number] 2020-10-27 2020-10-27 [facility] [id number] 00:00:00 00:00:00 Dany [id number] Juanpablo [id number] 2020-10-27 2020-10-27 Outpatient Esequiel [facility] [id number] 00:00:00 00:00:00 Dany [id number] Juanpablo [id number] 2020-10-17 2020-10-17 Outpatient Esequiel [facility] [id number] 00:00:00 00:00:00 Dany [id number] Juanpablo [id number] 2020-09-23 2020-09-23 Outpatient Esequiel [facility] [id number] 00:00:00 00:00:00 Dany [id number] Juanpablo [id number] 2020-09-08 2020-09-08 Outpatient Esequiel [facility] [id number] 00:00:00 00:00:00 Dany [id number] Juanpablo [id number] [...] = 1584) Rare SOURCE(BEAKER) (test code = 0115) Urine, Voided [id number] 13:11:00 Test Item Value Reference Range Interpretation Comments LIPASE (BEAKER) (test code = 749) 45 U/L 8-78 BASIC METABOLIC [id number] 13:11:00 Test Item Value Reference Range Interpretation [...] APPLICABLE FOR DIALYSIS PATIEN TS. HEPATIC FUNCTION [id number] 13:11:00 Test Item Value Reference Range Interpretation [...] (test code = 14 U/L 6-55 347) [id number] 13:02:00 Test Item Value Reference Range Interpretation [...] PERCENT (BEAKER) (test code = 2801) TISSUE [id number] 13:06:00Surgical Pathology Report Case: [id number] Authorizing Provider: Luiz Hayes Collected: 03/14/2018 1115 Ordering Location: [facility] Endoscopy Received: 03/14/2018 1351 Services Pathologist: Mara Barboza MD Specimens: A) -Polyp, Duodenum B) - Stomach, Antrum, bx C) - Biopsy, Gastric, gastric body D) - Biopsy, Esophagus, random THIS ADDENDUM IS ISSUED TO REPORT THE RESULT OF IMMUNOHISTOCHEMICAL STUDY FOR HELICOBACTER PYLORI OM SPECIMEN B: - NEGATIVE CPT CODE: [id number] electronically signed by Mara Barboza MD on [...] MALIGNANCY SEEN Signing Pathologist Direct Phone Line: [phone] signed by Mara Barboza MD on 03/17/2018 at 10:35 [id number] X 4; [id number] X 2A. Polyp, duodenum. B. Stomach antrum. [...] the interpretation is incorporatedin the diagnostic report above:WARTHIN-STARRY X 2 POCT-GLUCOSE [id number] 12:41:00 Test Item Value Reference Range Interpretation Comments POC-GLUCOSE METER 75 mg/dL 70-[address] [facility] 67 ([facility]) (test code = [place] [address] 1538) BLOOD [id number] 06:00:00 Test Item Value Reference Range Interpretation Comments CULTURE (BEAKER) (test No growth in 5 days code = 1095) BLOOD [id number] 06:00:00 Test Item Value Reference Range Interpretation Comments CULTURE (BEAKER) (test No growth in 5 days code = 1095) POCT-GLUCOSE [id number] 12:32:00 Test Item Value Reference Range Interpretation Comments POC-GLUCOSE METER 217 mg/dL 70-[address] [facility] 6720 [facility] ([facility] = [facility] 1538) [address] POCT-GLUCOSE [id number] 08:36:00 Test Item Value Reference Range Interpretation Comments POC-GLUCOSE METER 92 mg/dL 70-[address] [facility] 6720 ([facility]) (test code = [facility] [address] 1538) COMPREHENSIVE METABOLIC [id number] 04:59:00 Test Item Value Reference Range Interpretation [...] S NOT APPLICABLE FOR DIALYSIS PATIEN TS. [id number] 04:50:00 Test Item Value Reference Range Interpretation Comments MAGNESIUM (BEAKER) (test code = 1.7 mg/dL 1.6-2.6 627) PROTHROMBIN [id number] 04:35:00 Test Item Value Reference Range Interpretation [...] PERCENT (BEAKER) (test code = 2801) POCT-GLUCOSE [id number] 22:13:00 Test Item Value Reference Range Interpretation Comments POC-GLUCOSE METER 194 mg/dL 70-[address] [facility] 67 ([facility] (test code = [facility] 1538) [address] POCT-GLUCOSE [id number] 18:14:00 Test Item Value Reference Range Interpretation Comments POC-GLUCOSE METER 195 mg/dL 70-110 H TESTED AT [place] [address] ([facility]) (test code = [facility] 1538) [address] POCT-GLUCOSE [id number] 12:20:00 Test Item Value Reference Range Interpretation Comments POC-GLUCOSE METER 224 mg/dL 70-110 H TESTED AT [place] [address] ([facility]) (test code = [facility] 1538) [address] [id number] 08:55:00 Test Item Value Reference Range Interpretation Comments LIPASE (BEAKER) (test code = 749) 471 U/L 8-78 H POCT-GLUCOSE [id number] 08:12:00 Test Item Value Reference Range Interpretation Comments POC-GLUCOSE METER 128 mg/dL 70-[address] [facility] 6720 (BEAKER) (test code = [place] 1538) [address] [id number] 04:12:00 Test Item Value Reference Range Interpretation Comments T3 TOTAL (BEAKER) (test code = 656) 41 ng/dL 48-159 L T3, [id number] 04:11:00 Test Item Value Reference Range Interpretation Comments T3 FREE (BEAKER) (test code = 908) 1.31 pg/mL 1.71-3.71 L COMPREHENSIVE METABOLIC [id number] 04:01:00 Test Item Value Reference Range Interpretation [...] S NOT APPLICABLE FOR DIALYSIS PATIEN TS. [id number] 03:54:00 Test Item Value Reference Range Interpretation Comments MAGNESIUM (BEAKER) (test code = 1.7 mg/dL 1.6-2.6 627) PROTHROMBIN [id number] 03:53:00 Test Item Value Reference Range Interpretation [...] PERCENT (BEAKER) (test code = 2801) POCT-GLUCOSE [id number] 22:34:00 Test Item Value Reference Range Interpretation Comments POC-GLUCOSE METER 252 mg/dL 70-[address] [facility] 6720 (BEAKER) (test code = [place] 1538) [address] [id number] 19:36:00 Test Item Value Reference Range Interpretation Comments MAGNESIUM (BEAKER) (test code = 1.6 mg/dL 1.6-2.6 627) BASIC METABOLIC [id number] 19:36:00 Test Item Value Reference Range Interpretation [...] H (BEAKER) (test code = 652) CALCIUM (MATTHEW) 8.1 mg/dL 8.4-10.2 L (test code = 697) EGFR (MATTHEW) (test 76 mL/min/1.73 ESTIMA LEESA GFR IS code = 1092) sq m NOT ACCURATE CREATININE CLEARANCE IN PREDICTING GLOMERULAR FILTRATION RATE . ESTIMATED GFR I S NOT APPLICABLE FOR DIALYSIS PATIEN TS. URINE [id number] 11:51:00 Test Item Value Reference Range Interpretation Comments CULTURE (MATTHEW) (test code = 1095) No growth POCT-GLUCOSE [id number] 11:42:00 Test Item Value Reference Range Interpretation Comments POC-GLUCOSE METER 205 mg/dL 70-110 H TESTED AT [place] [address] ([facility]) (test code = [employer] [facility] 1538) [address] POCT-GLUCOSE [id number] 08:08:00 Test Item Value Reference Range Interpretation Comments POC-GLUCOSE METER 119 mg/dL 70-110 H TESTED AT [place] [address] ([facility]) (test code = [employer] [facility] 1538) [address] C. DIFFICILE GDH [id number] 07:40:00 Test Item Value Reference Range Interpretation Comments CDT TOXIN (test code Negative Negative = [id number]) CDT GDH ANTIGEN Positive Negative A C. difficile present but (test code = toxin not detec leesa. [id number]) Indicates colon ization with non-toxige lizbeth strain [...] CENTER Microbiology Lab prior to clinical use.POCT-GLUCOSE [id number] 06:37:00 Test Item Value Reference Range Interpretation Comments POC-GLUCOSE METER 141 mg/dL 70-110 H TESTED AT [place] [address] ([facility]) (test code = [employer] [facility] 1538) [address] COMPREHENSIVE METABOLIC [id number] 04:48:00 Test Item Value Reference Range Interpretation [...] NOT APPLICABLE FOR DIALYSIS PATIEN TS. PROTHROMBIN [id number] 04:40:00 Test Item Value Reference Range Interpretation Comments PROTIME (BEAKER) (test code = 23.8 seconds 11.7-14.7 H 759) INR (BEAKER) (test code = 370) 2.1 <=5.9 RECOMMENDED COUMADIN/WARFARIN INR THERAPY RANGESSTANDARD DOSE: 2.0 - 3.0 Includes: PROPHYLAXIS forvenous thrombosis, systemic embolization; TREATMENT for venous thrombosis and/or pulmonary embolus.HIGH RISK: Target INR is 2.5-3.5 for patients with mechanical heart valves.While on warfarin.[id number] 04:29:00 Test Item Value Reference Range Interpretation Comments MAGNESIUM (BEAKER) (test code = 2.0 mg/dL 1.6-2.6 627) CBC W/PLT COUNT & AUTO [id number] 04:11:00 Test Item Value Reference Range Interpretation [...] PERCENT (BEAKER) (test code = 2801) POCT-GLUCOSE [id number] 22:19:00 Test Item Value Reference Range Interpretation Comments POC-GLUCOSE METER 266 mg/dL 70-110 H TESTED AT [place] [address] (BEAKER) (test code = [facility] 1538) [address] [id number] 17:54:00 Test Item Value Reference Range Interpretation Comments POTASSIUM (BEAKER) (test code = 4.2 meq/L 3.5-5.1 379) [id number] 17:23:00 Test Item Value Reference Range Interpretation Comments MAGNESIUM (BEAKER) (test code = 1.7 mg/dL 1.6-2.6 627) POCT-GLUCOSE [id number] 12:41:00 Test Item Value Reference Range Interpretation Comments POC-GLUCOSE METER 111 mg/dL 70-110 H TESTED AT [place] [address] (BEAKER) (test code = [facility] 1538) [address] [id number] 12:40:00 Test Item Value Reference Range Interpretation Comments POTASSIUM (BEAKER) (test code = 3.5 meq/L 3.5-5.1 379) POCT-GLUCOSE [id number] 10:05:00 Test Item Value Reference Range Interpretation Comments POC-GLUCOSE METER 94 mg/dL 70-110 TESTED AT [place] [address] (BEAKER) (test code = [facility] [address] 1538) COMPREHENSIVE METABOLIC [id number] 05:47:00 Test Item Value Reference Range Interpretation [...] S NOT APPLICABLE FOR DIALYSIS PATIEN TS. [id number] 05:44:00 Test Item Value Reference Range Interpretation Comments MAGNESIUM (BEAKER) (test code = 2.0 mg/dL 1.6-2.6 627) PROTHROMBIN [id number] 05:37:00 Test Item Value Reference Range Interpretation Comments PROTIME (BEAKER) (test code = 24.0 seconds 11.7-14.7 H 759) INR (BEAKER) (test code = 370) 2.2 <=5.9 RECOMMENDED COUMADIN/WARFARIN INR THERAPY RANGESSTANDARD DOSE: 2.0 - 3.0 Includes: PROPHYLAXIS forvenous thrombosis, systemic embolization; TREATMENT for venous thrombosis and/or pulmonary embolus.HIGH RISK: Target INR is 2.5-3.5 for patients with mechanical heart valves.PROTHROMBIN TIME/[id number] 05:36:00 Test Item Value Reference Range Interpretation [...] valves.While on warfarin.CBC W/PLT COUNT & AUTO [id number] 05:35:00 Test Item Value Reference Range Interpretation [...] ABSOLUTE COUNT 1.16 K/ L 1.18-3.74 L (AKER) (test code = 414) MONOCYTES ABSOLUTE COUNT (BEAKER) 0.18 K/ L 0.24-0.36 L (test code = 415) EOSINOPHILS ABSOLUTE COUNT 0.06 K/ L 0.04-0.36 (BEAKER) (test code = 416) BASOPHILS ABSOLUTE COUNT (AKER) 0.01 K/ L 0.01-0.08 (test code = 417) IMMATURE GRANULOCYTES-RELATIVE 1 % 0-1 PERCENT ([facility]) (test code = 2801) POCT-GLUCOSE [id number] 23:56:00 Test Item Value Reference Range Interpretation Comments POC-GLUCOSE METER 105 mg/dL 70-[address] [facility] 6720 ([facility]) (test code = [facility] Mikki [facility] 1538) [address] TROPONIN [id number] 13:02:00 Test Item Value Reference Range Interpretation Comments TROPONIN I ([facility]) (test code = 0.02 ng/mL [...] Reference Range Interpretation Comments B-TYPE NATRIURETIC PEPTIDE ([facility]) 975 pg/mL 0-100 H (test code = 700) POCT-GLUCOSE [id number] 12:18:00 Test Item Value Reference Range Interpretation Comments POC-GLUCOSE METER 175 mg/dL 70-[address] [facility] 6720 ([facility]) (test code = [facility] Mikki [facility] 1538) [address] U/S, ABDOMINAL, [id number] 10:23:00Abdomen limited area? Add comment if clarification [...] MDReport Verified Date/Time: 01/14/2018 10:23:02 Reading Location: [address] Ortho Consult Reading Room T4, [id number] 08:42:00 Test Item Value Reference Range Interpretation Comments FREE T4 (MATTHEW) (test code = 655) 0.83 ng/dL 0.70-1.48 POCT-GLUCOSE [id number] 08:37:00 Test Item Value Reference Range Interpretation Comments POC-GLUCOSE METER 161 mg/dL 70-[address] [facility] 6720 (MATTHEW) (test code = [place] 1538) [address] TSH/FREE T4 IF [id number] 08:05:00 Test Item Value Reference Range Interpretation Comments THYROID STIMULATING HORMONE 0.02 uIU/mL 0.35-4.94 L ([employer]) (test code = 772) VITAMIN B12 AND [id number] 07:42:00 Test Item Value Reference Range Interpretation Comments VITAMIN B12 (BEAKER) (test code = 1276 pg/mL 213-816 H 774) FOLATE (BEAKER) (test code = 362) 8.8 ng/mL >=7.0 LIPID [id number] 07:14:00 Test Item Value Reference Range Interpretation [...] Borderline 130-159 High 160-189 Very High >=190TROPONIN [id number] 07:12:00 Test Item Value Reference Range Interpretation [...] acute neurological disease, and persistent tachyarrhythmia.URINALYSIS W/ [id number] 06:35:00 Test Item Value Reference Range Interpretation [...] 517) SOURCE(BEAKER) (test code = Urine, Taylor 1965) [id number] 06:07:00 Test Item Value Reference Range Interpretation Comments MAGNESIUM (BEAKER) (test code = 1.8 mg/dL 1.6-2.6 627) [id number] 05:32:00 Test Item Value Reference Range Interpretation Comments MAGNESIUM (BEAKER) (test code = 2.5 mg/dL 1.6-2.6 627) COMPREHENSIVE METABOLIC [id number] 05:32:00 Test Item Value Reference Range Interpretation [...] NOT APPLICABLE FOR DIALYSIS PATIEN TS. PROTHROMBIN TIME/[id number] 05:10:00 Test Item Value Reference Range Interpretation [...] 0-1 PERCENT (BEAKER) (test code = 2801) [id number] 02:52:00 Test Item Value Reference Range Interpretation Comments PROCALCITONIN (BEAKER) (test code 0.41 ng/mL <0.05 H = 3036) SEPSIS RISK (ng/mL)Low: 0.05-0.50Intermediate: 0.51-2.00High: >=2.01LACTIC ACID, VENOUS, WHOLE [id number] 02:06:00 Test Item Value Reference Range Interpretation Comments LACTATE BLOOD VENOUS 1.3 mmol/L 0.5-2.2 Specime n slightly (2) (BEAKER) (test hemolyzed code = 2872) Effective 01/07/2016: Units/Reference Range ChangeNew: 0.5-2.2 mmol/L Previous: 5-20 mg/dLCOMPREHENSIVE METABOLIC [id number] 02:06:00 Test Item Value Reference Range Interpretation [...] S NOT APPLICABLE FOR DIALYSIS PATIEN TS. [id number] 02:04:00 Test Item Value Reference Range Interpretation Comments LIPASE (BEAKER) (test code = 749) 730 U/L 8-78 H [id number] 02:04:00 Test Item Value Reference Range Interpretation Comments AMYLASE (BEAKER) (test code = 349) 226 U/L 25-125 H PROTHROMBIN [id number] 01:45:00 Test Item Value Reference Range Interpretation Comments PROTIME (BEAKER) (test code = 23.9 seconds 11.7-14.7 H 759) INR (BEAKER) (test code = 370) 2.1 <=5.9 RECOMMENDED COUMADIN/WARFARIN INR THERAPY RANGESSTANDARD DOSE: 2.0 - 3.0 Includes: PROPHYLAXIS forvenous thrombosis, systemic embolization; TREATMENT for venous thrombosis and/or pulmonary embolus.HIGH RISK: Target INR is 2.5-3.5 for patients with mechanical heart valves.[id number] 01:45:00 Test Item Value Reference Range Interpretation Comments PARTIAL THROMBOPLASTIN TIME 32.4 seconds 22.5-36.0 (BEAKER) (test code = 760) CBC W/PLT COUNT & AUTO [id number] 01:38:00 Test Item Value Reference Range Interpretation [...] % 0-1 PERCENT (BEAKER) (test code = 2431)
--- NOTE | 2021-04-19 16:09 | RAD REPORT ---
EXAM DESCRIPTION: RAD - Chest Single View - 04/19/2021 3:55 pm CLINICAL HISTORY: weakness COMPARISON: Chest Single View dated 04/09/2021; Chest Single View dated 03/10/2021; Chest Single View da komal 08/05/2020; Chest Single View dated 08/01/2020 FINDINGS: No evidence of edema or pneumonia. Mild cardiomegaly.No acute osseous abnormality. No sign ificant pleural effusions or pneumothorax. IMPRESSION: No acute cardiopulmonary disease.
[2021-04-19 16:21] LABS: Absolute Lymphocytes (CBC) 0.7 K/uL (0.7-4.9); Basophils % 0.3 % (0-1.3); Hematocrit 26.1 % (36.0-45.0); Lymphocytes % 11.6 % (15.3-44.8); MPV 8.4 fL (7.6-11.3); RBC Red Blood Cell Count 2.97 M/uL (3.86-4.86)
[2021-04-19 16:22] LABS: Protime INR 1.53
[2021-04-19 16:30] LABS: Urine Blood Negative (Negative); Urine Glucose Negative (Negative); Urine Protein Negative (Negative); Urine Specific Gravity 1.015 (1.005-1.030)
[2021-04-19 16:32] LABS: ALT/SGPT 44 U/L (12-78); AST/SGOT 68 U/L (15-37); Albumin 2.9 g/dL (3.4-5.0); Alkaline Phosphatase 49 U/L (45-117); BUN Blood Urea Nitrogen 24 mg/dL (7-18); Bicarbonate 29 mmol/L (21-32); Bilirubin Direct 0.2 mg/dL (0-0.2); Bilirubin Total 0.6 mg/dL (0.2-1.0); Glucose Level 167 mg/dL (74-106); Magnesium 1.6 mg/dL (1.8-2.4); NT PRO-BNP 754 pg/mL (<450); Protein, Total 5.9 g/dL (6.4-8.2); Sodium Level 148 mmol/L (136-145); Troponin (Emerg Dept Use Only) < 0.02 ng/mL (0.0-0.045)
[2021-04-19 16:36] LABS: Potassium 2.5 mmol/L (3.5-5.1)
[2021-04-19 16:41] LABS: Urine Bacteria <20 /HPF (<20); Urine RBC NONE SEEN /HPF (NONE SEEN)
[2021-04-19] MEDS ORDERED: ONDANSETRON 4 MG/2 ML VIAL ONE (17:13)
[2021-04-19] MEDS ORDERED: NA CHLORIDE 0.9% 1,000 ML ONE ×2 (17:14→20:36)
[2021-04-19] MEDS ORDERED: PANTOPRAZOLE 40 MG INJ ONE (17:14)
[2021-04-19] MEDS ORDERED: KCL 20 MEQ/100 mL IVPB 20 MEQ/100 ML BAG IV ONE (17:14)
[2021-04-19] MEDS ORDERED: MAGNESIUM SULFATE 1 gm IVPB 1 GM/100 ML BAG IV ONE (17:14)
[2021-04-19 17:43] LABS: SARS-COV-2 RT PCR NEGATIVE (NEGATIVE)
--- NOTE | 2021-04-19 18:32 | RAD REPORT ---
EXAM DESCRIPTION: CTAbdomen Pelvis W Contrast - 04/19/2021 6:12 pm CLINICAL HISTORY: Abdominal pain. ABD PAIN COMPARISON: Abdomen Pelvis W Contrast dated 04/09/2021; Abdomen Pelvis W Contrast dated 03/10/2021; Abdomen Pelvis W Contrast dated 12/20/2020; Abdomen Pelvis W Contrast dated 06/28/2019 TECHNIQUE: Biphasic CT imaging of the abdomen and pelvis was performed with 100 ml non-ionic IV cont rast. All CT scans are performed using dose optimization technique as appropriate and may include automated exposure control or mA/KV adjustment according to patient size. FINDINGS: The lung bases are clear. Low-density liver lesions are likely benign. Gallbladder is unremarkable. Adrenal glands unremarkable . No stones or hydronephrosis. The pancreas is unremarkable. Miniscule splenic lesions which are like ly cysts. Subcentimeter left renal lesion which is statistically benign. No hydronephrosis. Diverticu losis without diverticulitis. Taylor catheter within the bladder. Hysterectomy. No bowel obstruction. No acute fractures identified. Kyphoplasty changes are noted at L3-L4. Advanced degenerative changes are present in the lumbar spine. IMPRESSION: No acute intra-abdominal or pelvic finding. Incidental findings as noted above.
--- NOTE | 2021-04-19 18:33 | RAD REPORT ---
EXAM DESCRIPTION: CT - Head Brain Wo Cont - 04/19/2021 6:12 pm CLINICAL HISTORY: WEAKNESS COMPARISON: Head Brain Wo Cont dated 12/29/2016; HEAD BRAIN W O CONTRAST dated 04/10/2015 TECHNIQUE: All CT scans are performed using dose optimization technique as appropriate and may inclu de automated exposure control or mA/KV adjustment according to patient size. FINDINGS: No intracranial hemorrhage, hydrocephalus or extra-axial fluid collection.No areas of brai n edema or evidence of midline shift. Calcified dural-based right frontal extra-axial lesion consiste nt a meningioma that is unchanged. There is ethmoid air cell and sphenoid sinus opacification. Age ad vanced cerebral atrophy. The paranasal sinuses and mastoids are clear. The calvarium is intact. IMPRESSION: No acute intracranial abnormality.
[2021-04-19 18:57] LABS: Anisocytosis 1+; Blood Morphology Comment NOTED (NOT SEEN); Platelet Estimate ADEQ; Polychromasia 1+; White Blood Cell Scan OK (OK)
--- NOTE | 2021-04-19 20:22 | ER ---
Nurse's Notes [facility] Name: Emelia Payan Age: 80 yrs Sex: Female : 1940 Arrival Date: 04/19/2021 Time: 13:44 Bed 4 Private MD: Diagnosis: Weakness;Bacteremia;Sepsis due to unspecified staphylococcus;Hypokalemia Presentation: 04/19 14:00 Chief complaint: Spouse and/or significant other states: Fatigue and generalized ss weakness that began yesterday. Coronavirus screen: Client denies travel out of the [place] in the last 14 days. Ebola Screen: Patient denies exposure to infectious person. Patient denies travel to an Ebola-affected area in the 21 days before illness onset. Risk Assessment: Do you want to hurt yourself or someone else? Patient reports no desire to harm self or others. Onset of symptoms was April 18, 2021. 14:00 Method Of Arrival: Wheelchair ss 14:00 Acuity: EDIS 3 ss 15:29 Initial Sepsis Screen: Does the patient meet any 2 criteria? No. Patient's initial jd3 sepsis screen is negative. Does the patient have a suspected source of infection? No. Patient's initial sepsis screen is negative. Stroke Activation: Symptom onset > 6 hours Physician: Stroke Attending; Name: ; Notified At: ; Arrived At: Physician: Chief Stroke Resident; Name: ; Notified At: ; Arrived At: Physician: Stroke Resident; Name: ; Notified At: ; Arrived At: Physician: ED Attending; Name: ; Notified At: ; Arrived At: Physician: ED Resident; Name: ; Notified At: ; Arrived At: Historical: - Allergies: 14:01 Bactrim; ss 14:01 Cipro; ss 14:01 Xarelto; ss 14:01 Zosyn; ss - PMHx: 14:01 Anxiety; DVT; Diabetes - IDDM; CVA; CHF; Atrial Fib; Hyperlipidemia; Hypertension; ss Hypothyroidism; L groin blood clot; adrenal insuficiency; lymphedema; Pancreatitis; - Immunization history:: Client reports receiving the 2nd dose of the Covid vaccine. - Social history:: Smoking status: Patient denies any tobacco usage or history of. Screenin:28 Abuse screen: Denies threats or abuse. Nutritional screening: No deficits noted. jd3 Tuberculosis screening: No symptoms or risk factors identified. Fall Risk Ambulatory Aid- None/Bed Rest/Nurse Assist (0 pts). Gait- Weak (10 pts.). Mental Status- Oriented to own ability (0 pts). Total Dickens Fall Scale indicates Low Risk Score (25-44 pts). Fall prevention measures have been instituted. Side Rails Up X 2 Placed close to Nursing Station Frequent Obs/Assesments occuring. Assessment: 16:08 General: Appears in no apparent distress. uncomfortable, Behavior is calm, cooperative, jd3 appropriate for age, Reports fatigue for 12-24 hours. Pain: Denies pain. Neuro: Level of Consciousness is awake, alert, obeys commands, Oriented to person, place, time, situation, Reports generalized weakness. Cardiovascular: Denies chest pain, Capillary refill < 3 seconds Patient's skin is warm and dry. Rhythm is regular. Respiratory: Airway is patent Respiratory effort is even, unlabored, Respiratory pattern is regular, symmetrical, Denies cough, shortness of breath. GI: No signs and/or symptoms were reported involving the gastrointestinal system. : No signs and/or symptoms were reported regarding the genitourinary system. EENT: No signs and/or symptoms were reported regarding the EENT system. Derm: Skin is intact, Skin is dry, Skin is pale, Skin temperature is warm. Musculoskeletal: Circulation, motion, and sensation intact. Range of motion: intact in all extremities. 17:04 Reassessment: Patient appears in no apparent distress at this time. No changes from jd3 previously documented assessment. Patient and/or family updated on plan of care and expected duration. Pain level reassessed. Patient is alert, oriented x 3, equal unlabored respirations, skin warm/dry/pink. 18:29 Reassessment: Patient appears in no apparent distress at this time. No changes from jd3 previously documented assessment. Patient and/or family updated on plan of care and expected duration. Pain level reassessed. Patient is alert, oriented x 3, equal unlabored respirations, skin warm/dry/pink. Vital Signs: 13:57 BP 132 / 62; Pulse 83; Resp 18; Temp 97.2(TE); Pulse Ox 98% on R/A; Weight 71.67 kg; mh5 Height 5 ft. 4 in. (162.56 cm); Pain 4/10; 16:09 BP 148 / 62; Pulse 64; Resp 18 S; Pulse Ox 100% on R/A; jd3 17:05 BP 128 / 59; Pulse 62; Resp 17 S; Pulse Ox 100% on R/A; jd3 18:28 BP 147 / 63; Pulse 62; Resp 18 S; Pulse Ox 100% on R/A; jd3 13:57 Body Mass Index 27.12 (71.67 kg, 162.56 cm) [facility] ED Course: 13:44 Patient arrived in ED. ds1 14:01 Triage completed. ss 14:01 Arm band placed on right wrist. ss 15:27 Owen Marrero, RN is Primary Nurse. jd3 15:27 Jose Elias Gamboa PA is PHCP. cp 15:27 Chris Wynn MD is Attending Physician. cp 15:28 Patient has correct armband on for positive identification. Bed in low position. Call jd3 light in reach. Side rails up X 1. library monitor on. Pulse ox on. NIBP on. 15:32 Nurse Practitioner and/or Physician [employer] Cler[employer] to see patient. jd3 15:55 XRAY Chest (1 view) In Process Unspecified. EDMS 16:07 Inserted saline lock: 22 gauge in left wrist, using aseptic technique. Blood collected. jd3 16:09 EKG done, by ED staff, reviewed by Jose Elias HEREDIA. dh3 16:34 Taylor cath inserted, using sterile technique, 16 Fr., by ED staff, balloon inflated, jd3 urine specimen collected. Patient tolerated well. 18:13 CT Abd/Pelvis - IV Contrast Only In Process Unspecified. EDMS 18:13 Head Brain Wo Cont In Process Unspecified. EDMS 19:43 initiated a transfer with Steff from [facility] Transfer [place]. mw2 19:54 initiated a transfer with Kiesha from [facility] Transfer Center. mw2 20:03 all [facility] campuses denied due to capacity. mw2 20:29 connected Jose Elias Heredia with Dr. Talamantes from [facility]. mw2 20:35 [facility] denied due to no IMU beds. mw2 20:42 Raul Cox DO is Hospitalizing Provider. cp 21:34 Alvaro Castellon is Hospitalizing Provider. cp 04/20 00:12 No provider procedures requiring assistance completed. Patient admitted, IV remains in ea place. 06:11 Primary Nurse role handed off by Owen Marrero RN mw2 Administered Medications: 04/19 16:44 Not Given (Physician Discretion): NS 0.9% 250 ml IV at bolus once cp 17:03 Drug: Potassium Chloride 20 mEq Route: IV; Rate: calculated rate; Site: left wrist; jd3 20:15 Follow up: IV Status: Completed infusion; IV Intake: 100ml em 17:04 Drug: ProTONIX (pantoprazole) 40 mg Route: IVP; Site: left wrist; jd3 20:16 Follow up: Response: No adverse reaction em 17:04 Drug: Zofran (Ondansetron) 4 mg Route: IVP; Site: left wrist; jd3 20:16 Follow up: Response: No adverse reaction em 17:04 Drug: NS 0.9% 1000 ml Route: IV; Rate: 500 ml/hr; Site: left wrist; jd3 20:16 Follow up: IV Status: Completed infusion; IV Intake: 500ml em 17:04 Drug: Magnesium Sulfate 1 grams Route: IVPB; Infused Over: 1 hrs; Site: left wrist; jd3 20:16 Follow up: Response: No adverse reaction; IV Status: Completed infusion; IV Intake: em 100ml 20:29 Drug: vancoMYCIN 1 grams Route: IVPB; Infused Over: 2 hrs; Site: left wrist; em 22:42 Follow up: Response: No adverse reaction; IV Status: Completed infusion; IV Intake: em 250ml 20:29 Drug: NS 0.9% 1000 ml Route: IV; Rate: 1 bolus; Site: left wrist; em 22:42 Follow up: IV Status: Completed infusion; IV Intake: 1000ml em 22:42 Drug: Cefepime 1 grams Route: IVPB; Rate: 200 ml/hr; Infused Over: 30 mins; Site: left em wrist; 04/20 03:32 Follow up: Response: No adverse reaction; IV Status: Completed infusion; IV Intake: 10mlem Intake: 04/19 20:15 IV: 100ml; Total: 100ml. em 20:16 IV: 500ml; Total: 600ml. em 20:16 IV: 100ml; Total: 700ml. em 22:42 IV: 250ml; Total: 950ml. em 22:42 IV: 1000ml; Total: 1950ml. em 04/20 03:32 IV: 10ml; Total: 1960ml. em Outcome: 04/19 20:22 ER care complete, transfer ordered by . cp 20:45 Decision to Hospitalize by Provider. cp 04/20 00:12 Admitted to ER Hold. Please see [facility] for further documentation. ea Condition: stable Instructed on the need for admit, Demonstrated understanding of instructions. 17:14 Patient left the ED. aa5 Signatures: Dispatcher [employer] Prabhu Aguero, RN RN Philomena Valentine ds1 Giuliana Nichols RN RN aa5 Paty Otoole RN RN Jose Elias Hidalgo, NATALIA PA Dottie Avendano Jeni Abrams 3 Maryan Rapp RN RN ea Davies, Jonathon, RN RN Hermelindo Caruso2
--- NOTE | 2021-04-19 20:22 | EDPHYS ---
Physician Documentation [facility] Name: Emelia Payan Age: 80 yrs Sex: Female : 1940 Arrival Date: 04/19/2021 Time: 13:44 Bed 4 Private MD: ED Physician Chris Wynn HPI: 04/19 15:45 This 80 yrs old Female presents to ER via Wheelchair with complaints of Low cp Blood Pressure, Weakness. 15:45 The patient's problem is reported as weakness, that is generalized. Onset: The cp symptoms/episode began/occurred 3 day(s) ago. 15:45 Duration: The episode is continuous. Associated signs and symptoms: Pertinent cp positives: abdominal pain, Pertinent negatives: chest pain, confusion, headache, lightheadedness, vomiting. Severity of symptoms: in the emergency department the symptoms are unchanged despite home interventions. also reports patient with low blood pressure today. Historical: - Allergies: 14:01 Bactrim; ss 14:01 Cipro; ss 14:01 Xarelto; ss 14:01 Zosyn; ss - PMHx: 14:01 Anxiety; DVT; Diabetes - IDDM; CVA; CHF; Atrial Fib; Hyperlipidemia; Hypertension; ss Hypothyroidism; L groin blood clot; adrenal insuficiency; lymphedema; Pancreatitis; - Immunization history:: Client reports receiving the 2nd dose of the Covid vaccine. - Social history:: Smoking status: Patient denies any tobacco usage or history of. ROS: 15:50 Constitutional: Negative for body aches, chills, fever, poor PO intake. cp 15:50 Eyes: Negative for injury, pain, redness, and discharge. cp 15:50 ENT: Negative for drainage from ear(s), ear pain, sore throat, difficulty swallowing, difficulty handling secretions. 15:50 Cardiovascular: Negative for chest pain, edema, palpitations. 15:50 Respiratory: Negative for cough, shortness of breath, wheezing. 15:50 Abdomen/GI: Positive for abdominal pain, nausea, Negative for vomiting, diarrhea, constipation, abdominal distension, black/tarry stool, rectal bleeding. 15:50 : Positive for urinary frequency, Negative for burning with urination. 15:50 Skin: Negative for cellulitis, rash. 15:50 Neuro: Positive for weakness, Negative for altered mental status, headache, loss of consciousness, syncope. 15:50 All other systems are negative. Exam: 15:55 Constitutional: The patient appears in no acute distress, alert, awake, cp non-diaphoretic, non-toxic, well developed, well nourished. 15:55 Head/Face: Normocephalic, atraumatic. cp 15:55 Eyes: Periorbital structures: appear normal, Pupils: equal, round, and reactive to light and accomodation, Extraocular movements: intact throughout, Conjunctiva: normal, no exudate, no injection, Sclera: no appreciated abnormality, Lids and lashes: appear normal, bilaterally. 15:55 ENT: External ear(s): are unremarkable, Nose: is normal, Mouth: Lips: moist, Oral mucosa: moist, Posterior pharynx: Airway: no evidence of obstruction, patent. 15:55 Neck: ROM/movement: is normal, is supple, without pain, no range of motions limitations. 15:55 Chest/axilla: Inspection: normal, Palpation: is normal, no crepitus, no tenderness. 15:55 Cardiovascular: Rate: normal, Rhythm: regular, Edema: is not appreciated, JVD: is not appreciated. 15:55 Respiratory: the patient does not display signs of respiratory distress, Respirations: normal, no use of accessory muscles, no retractions, labored breathing, is not present, Breath sounds: are clear throughout, no decreased breath sounds, no stridor, no wheezing. 15:55 Abdomen/GI: Inspection: abdomen appears normal, Bowel sounds: active, all quadrants, Palpation: soft, in all quadrants, mild abdominal tenderness, in the epigastric area, rebound tenderness, is not appreciated, involuntary guarding, is not appreciated. 15:55 Skin: cellulitis, is not appreciated, no rash present. 15:55 Neuro: Orientation: to person, place \T\ time. Mentation: is normal, Motor: moves all fours, general weakness with no focal deficits, Sensation: no obvious gross deficits. 16:15 ECG was reviewed by the Attending Physician. cp 18:38 Radiologist reports: no acute findings noted on head CT cp Vital Signs: 13:57 BP 132 / 62; Pulse 83; Resp 18; Temp 97.2(TE); Pulse Ox 98% on R/A; Weight 71.67 kg; mh5 Height 5 ft. 4 in. (162.56 cm); Pain 4/10; 16:09 BP 148 / 62; Pulse 64; Resp 18 S; Pulse Ox 100% on R/A; jd3 17:05 BP 128 / 59; Pulse 62; Resp 17 S; Pulse Ox 100% on R/A; jd3 18:28 BP 147 / 63; Pulse 62; Resp 18 S; Pulse Ox 100% on R/A; jd3 13:57 Body Mass Index 27.12 (71.67 kg, 162.56 cm) [facility] MDM: 15:34 Patient medically screened. cp 16:30 Differential diagnosis: CVA, TIA, metabolic disorder, drug effects, anemia, sepsis, cp pneumonia, dehydration. 19:00 Data reviewed: vital signs, nurses notes, lab test result(s), EKG, radiologic studies, cp CT scan, plain films. 20:00 Test interpretation: by ED physician or midlevel provider: ECG, plain radiologic cp studies. 20:00 Response to treatment: the patient's symptoms have mildly improved after treatment. cp 20:35 Physician consultation: was contacted at 20:30, regarding regarding transfer, to [facility]. patient's condition, transfer declined due to facilities lack of ICU beds. Suggests patient also be started on IV Cefepime for Bacteremia. Consult performed with DR Marie, hospitalist services. 04/19 15:36 Order name: Basic Metabolic Panel 04/19 15:36 Order name: CBC with Diff 04/19 15:36 Order name: LFT's; Complete Time: 16:41 04/19 16:42 Interpretation: Normal except: AST 68; TP 5.9; ALB 2.9; A/G 1.0. 04/19 15:36 Order name: Magnesium; Complete Time: 16:41 04/19 16:42 Interpretation: Abnormal: MG 1.6. cp 04/19 15:36 Order name: NT PRO-BNP; Complete Time: 16:41 04/19 16:42 Interpretation: Abnormal: NT PRO-BNP 754. 04/19 15:36 Order name: PT-INR; Complete Time: 16:41 cp 04/19 15:36 Order name: Troponin (emerg Dept Use Only); Complete Time: 16:41 04/19 15:36 Order name: Type And Screen 04/19 15:36 Order name: Urine Microscopic Only; Complete Time: 16:44 cp 04/19 16:45 Interpretation: Normal except: SQEPI 5-10. cp 04/19 15:36 Order name: Lactate; Complete Time: 16:41 cp 04/19 18:36 Interpretation: Abnormal: LAC 4.2. cp 04/19 15:36 Order name: Blood Culture Adult (2) cp 04/19 15:36 Order name: Procalcitonin; Complete Time: 18:35 04/19 15:37 Order name: Basic Metabolic Panel; Complete Time: 16:41 EDMS 04/19 16:43 Interpretation: Normal except: NA 148; K 2.5; CL 111; GLUC 167; BUN 24; GFR 67; CA 7.6. 04/19 15:37 Order name: CBC with Automated Diff; Complete Time: 19:23 EDMS 04/19 16:43 Interpretation: Normal except: WBC 6.20; RBC 2.97; HGB 8.1; HCT 26.1; MCHC 31.0; PLT cp 185; RDW 19.6; MARIA E% 85.1; LYM% 11.6; MN% 2.8. 04/19 16:30 Order name: Urine Dipstick-Ancillary; Complete Time: 16:41 EDMS 04/19 17:43 Order name: COVID-19/FLU A+B; Complete Time: 18:35 EDMS 04/19 18:57 Order name: CBC Smear Scan; Complete Time: 19:23 EDMS 04/19 19:16 Order name: Lactate Sepsis 2 HR Follow-up; Complete Time: 19:23 EDMS 04/20 02:51 Order name: Lactate; Complete Time: 03:33 EDMS 04/20 03:32 Order name: CBC with Automated Diff; Complete Time: 03:33 EDMS 04/20 04:07 Order name: Comprehensive Metabolic Panel EDMS 04/20 04:07 Order name: Phosphorus EDMS 04/20 04:07 Order name: Lipid Profile EDMS 04/20 04:07 Order name: T4 Free EDMS 04/20 04:07 Order name: Magnesium EDMS 04/20 04:07 Order name: Thyroid Stimulating Hormone EDMS 04/20 04:07 Order name: Transferrin Sat/Iron Binding EDMS 04/20 04:07 Order name: Ferritin EDMS 04/19 15:36 Order name: XRAY Chest (1 view); Complete Time: 16:41 cp 04/19 15:36 Order name: EKG; Complete Time: 15:37 cp 04/19 15:36 Order name: Cardiac monitoring; Complete Time: 16:10 cp 04/19 15:36 Order name: EKG - Nurse/Tech; Complete Time: 16:10 cp 04/19 15:36 Order name: IV Saline Lock; Complete Time: 16:10 cp 04/19 15:36 Order name: Labs collected and sent; Complete Time: 16:10 cp 04/19 16:24 Order name: CT Abd/Pelvis - IV Contrast Only; Complete Time: 18:35 cp 04/19 17:37 Order name: Head Brain Wo Cont; Complete Time: 18:35 EDMS 04/20 04:07 Order name: Folic Acid, (Folate) EDMS 04/20 04:07 Order name: Vitamin B12 Level EDMS 04/20 06:37 Order name: Lactate Sepsis 2 HR Follow-up EDMS 04/20 07:38 Order name: Glucose, Ancillary Testing EDMS 04/20 09:42 Order name: Glucose, Ancillary Testing EDMS 04/20 11:57 Order name: Glucose, Ancillary Testing EDMS 04/20 13:59 Order name: PTH Intact EDMS 04/20 14:07 Order name: Cortisol EDMS 04/20 14:10 Order name: Vitamin D, 25 (OH), TOTAL EDMS 04/20 16:34 Order name: Hemoglobin EDMS 04/20 16:34 Order name: Hematocrit EDMS 04/20 16:42 Order name: Basic Metabolic Panel EDMS 04/20 16:45 Order name: Glucose, Ancillary Testing EDMS 04/19 15:36 Order name: O2 Per Protocol; Complete Time: 16:10 cp 04/19 15:36 Order name: O2 Sat Monitoring; Complete Time: 16:10 cp 04/19 15:36 Order name: Cath; Complete Time: 16:32 cp 04/19 15:36 Order name: Urine Dipstick-Ancillary (obtain specimen); Complete Time: 16:32 cp EC:15 Rate is 64 beats/min. Rhythm is regular. MI interval is normal. QRS interval is normal. cp QT interval is prolonged. T waves are Inverted in lead aVR. Interpreted by me. Reviewed by me. Administered Medications: 16:44 Not Given (Physician Discretion): NS 0.9% 250 ml IV at bolus once cp 17:03 Drug: Potassium Chloride 20 mEq Route: IV; Rate: calculated rate; Site: left wrist; jd3 20:15 Follow up: IV Status: Completed infusion; IV Intake: 100ml em 17:04 Drug: ProTONIX (pantoprazole) 40 mg Route: IVP; Site: left wrist; jd3 20:16 Follow up: Response: No adverse reaction em 17:04 Drug: Zofran (Ondansetron) 4 mg Route: IVP; Site: left wrist; jd3 20:16 Follow up: Response: No adverse reaction em 17:04 Drug: NS 0.9% 1000 ml Route: IV; Rate: 500 ml/hr; Site: left wrist; jd3 20:16 Follow up: IV Status: Completed infusion; IV Intake: 500ml em 17:04 Drug: Magnesium Sulfate 1 grams Route: IVPB; Infused Over: 1 hrs; Site: left wrist; jd3 20:16 Follow up: Response: No adverse reaction; IV Status: Completed infusion; IV Intake: em 100ml 20:29 Drug: vancoMYCIN 1 grams Route: IVPB; Infused Over: 2 hrs; Site: left wrist; em 22:42 Follow up: Response: No adverse reaction; IV Status: Completed infusion; IV Intake: em 250ml 20:29 Drug: NS 0.9% 1000 ml Route: IV; Rate: 1 bolus; Site: left wrist; em 22:42 Follow up: IV Status: Completed infusion; IV Intake: 1000ml em 22:42 Drug: Cefepime 1 grams Route: IVPB; Rate: 200 ml/hr; Infused Over: 30 mins; Site: left em wrist; 04/20 03:32 Follow up: Response: No adverse reaction; IV Status: Completed infusion; IV Intake: 10mlem Disposition Summary: 04/19/21 20:45 Hospitalization Ordered Hospitalization Status: Inpatient Admission cp Condition: Stable(04/19/21 20:45) cp Problem: new(04/19/21 20:45) cp Symptoms: have improved(04/19/21 20:45) cp Bed/Room Type: Standard cp Provider: Alvaro Castellon(04/19/21 21:34) cp Location: Telemetry/MedSurg (Inpatient)(04/20/21 16:31) dw Room Assignment: 209(04/20/21 16:31) dw Diagnosis - Weakness(04/19/21 20:45) cp - Bacteremia cp - Sepsis due to unspecified staphylococcus cp - Hypokalemia cp Forms: - Medication Reconciliation Form cp - SBAR form cp Signatures: Dispatcher [employer] EDMS Uzma Oneal RN RN mw Woody, Diana RN RN Prabhu Quintana RN RN em Smirch, Shelby, RN RN ss Page, Corey, PA PA cp Davies, Jonathon, RN RN jd3 Corrections: (The following items were deleted from the chart) 04/19 16:56 15:42 CORONAVIRUS+MR.LAB.BRZ ordered. EDMS EDMS 17:09 16:25 Head Brain Wo Cont+CT.RAD.BRZ ordered. EDMS EDMS 17:36 17:32 Brain Wo Cont ordered. EDMS EDMS 19:28 15:42 Influenza Screen (A \T\ B)+BA.LAB.BRZ ordered. EDMS EDMS 20:42 20:22 Doctor cp cp 20:42 20:22 [facility] cp cp 20:42 20:22 Higher level of care cp cp 20:42 20:22 Stable cp cp 20:42 20:22 new cp cp 20:42 20:22 have improved cp cp 20:42 20:22 Weakness cp cp 21:33 20:45 Telemetry/MedSurg (Inpatient) cp mw 21:33 20:45 cp mw 21:34 20:45 Raul Cox cp cp 04/20 16:31 04/19 21:33 BR ER HOLD mw dw 04/20 16:31 04/19 21:33 ERHOLD- mw dw
[2021-04-19] MEDS ORDERED: VANCOMYCIN 1 GM/VIAL ONE (20:36)
--- NOTE | 2021-04-19 21:34 | P.HP ---
Certification for Inpatient Patient admitted to: Inpatient With expected LOS: >2 Midnights Patient will require the following post-hospital care: None Practitioner: I am a practitioner with admitting privileges, knowledge of patient current condition, hospital course, and medical plan of care. Services: Services provided to patient in accordance with Admission requirements found in Title 42 Section 412.3 of the Code of Federal Regulations Patient History Date of Service: 04/19/21 Primary Care Provider: Esequiel Reason for admission: weakness, hypokalemia History of Present Illness: Ms. Payan is an 80 yo F with DM, CKD, hypothyroidism ,h/o CVA, CHF, HLD, afib, HTN, h/o blood clots and lymphedema who is here today for 2 days of increased weakness and fatigue. She says she has had no appetite but is able to drink fluids. She reports polyuria. Denies systemic symptoms. She says this has happened several times in the past. She says for the past 4 months she has been in and out of the hospital, most recently for a bleeding ulcer which require an 8 unit blood transfusion. H/H 8.1. Na 148, K 2.5, Cl 111. BUN 24, GFR 67. Glu 167. Lactate 4.2. Ca 7.6, Mg 1.6. AST 68. BNP 754. Protein 5.9. Alb 2.9. UA clear. Blood cultures from 04/09/2021 positive for staph aureus, repeat blood cultures drawn in the ED. Given fluids, potassium, magnesium, vancomycin and cefepime in the ED. Head CT, CXR, and CT A/P without acute findings. Allergies ciprofloxacin [From Cipro] Allergy (Verified 02/11/17 06:42) Unknown rivaroxaban [From Xarelto] Allergy (Verified 02/11/17 06:42) Unknown piperacillin [From Zosyn] Adverse Reaction (Verified 04/28/19 22:34) Hives/Rash tazobactam [From Zosyn] Adverse Reaction (Verified 04/28/19 22:34) Hives/Rash Home Medications: Amlodipine [Norvasc*] 1 tab PO DAILY 07/30/20 Cholecalciferol (Vitamin D3) [Vitamin D3] 5,000 unit PO Q15D 07/30/20 Glipizide [Glipizide Xl] 2.5 mg PO SEECOM 07/30/20 Liothyronine Sodium [Cytomel] 5 mcg PO DAILY 07/30/20 Losartan Potassium [Cozaar] 100 mg PO DAILY 07/30/20 Sotalol HCl [Sotalol] 160 mg PO BID 07/30/20 Atorvastatin Calcium [Lipitor] 40 mg PO BEDTIME #30 tab 08/05/20 Fenofibrate [Tricor] 145 mg PO DAILY 03/04/21 Hydrocortisone [Cortef*] 20 mg PO BIDWM 03/04/21 Levothyroxine Sodium [Levothyroxine] 175 mcg PO DAILY 03/04/21 Tramadol HCl [Ultram] 1 tab PO DAILYPRN PRN 03/04/21 - Past Medical/Surgical History Diabetic: Yes -: Diabetes mellitus type 2 non-insulin dependent -: History CVA 2012 -: HTN -: Anxiety -: History of pituitary gland removal -: GERD with history of GI bleed -: Hypothyroidism -: Chronic anti coagulation with Coumadin -: History atrial fibrillation -: Chronic steroids -: Adrenal insufficiency -: Hyperlipidemia -: hysterectomy -: bradley carpal tunnel sx -: L lumpectomy -: brain tumor removed- benign -: pituitary gland removal -: appendectomy Psychosocial/ Personal History: The patient is . She has 5 children. She does not work. - Family History Mother -: Heart disease, Hypertension Notes: of heart attack Father -: Heart disease Notes: of heart attack - Social History Alcohol use: No CD- Drugs: No Caffeine use: Yes Place of Residence: Home Review of Systems 10-point ROS is otherwise unremarkable General: Malaise, As per HPI Neurological: Weakness, As per HPI Physical Examination - Physical Exam General: Alert, In no apparent distress, Oriented x3 HEENT: Atraumatic, PERRLA, Mucous membr. moist/pink, EOMI, Sclerae nonicteric Neck: Supple, 2+ carotid pulse no bruit, No LAD, Without JVD or thyroid abnormality Respiratory: Clear to auscultation bilaterally, Normal air movement Cardiovascular: Regular rate/rhythm, Normal S1 S2, Edema Gastrointestinal: Normal bowel sounds, No tenderness Musculoskeletal: No tenderness Integumentary: No rashes Neurological: Normal speech, Normal tone, Normal affect, Abnormal strength Lymphatics: No axilla or inguinal lymphadenopathy Urinary: Taylor catheter - Studies Laboratory Data (last 24 hrs) 08/15/21 16:00: PT 17.7 H, INR 1.53 04/19/21 16:00: WBC 6.20 D, Hgb 8.1 L, Hct 26.1 L, Plt Count 185 D 04/19/21 16:00: Sodium 148 H, Potassium 2.5 L*, BUN 24 H, Creatinine 0.82, Glucose 167 H, Magnesium 1.6 L, Total Bilirubin 0.6, AST 68 H, ALT 44, Alkaline Phosphatase 49 Assessment and Plan - Problems (Diagnosis) (1) Chronic anemia Onset Date: 02/09/16 Current Visit: No Status: Chronic (2) Chronic atrial fibrillation Current Visit: No Status: Chronic (3) Hypokalemia Onset Date: 03/13/15 Current Visit: No Status: Acute (4) Hypomagnesemia Onset Date: 03/13/15 Current Visit: No Status: Acute (5) Hypothyroidism (acquired) Current Visit: No Status: Chronic (6) Lymphedema Current Visit: No Status: Chronic (7) Weakness generalized Onset Date: 12/30/16 Current Visit: No Status: Acute (8) Chronic anticoagulation Onset Date: 01/20/16 Current Visit: No Status: Chronic (9) Diabetes mellitus Onset Date: 12/30/16 Current Visit: No Status: Chronic Qualifiers: Diabetes mellitus type: type 2 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 mellitus coat check attendant insulin use: without mcfp use Diabetes mellitus complication status: with kidney complications Diabetes mellitus complication detail: with chronic kidney disease Chronic kidney disease stage: stage 2 (mild) Qualified Code(s): E11.22 - Type 2 diabetes mellitus with diabetic chronic kidney disease; N18.2 - Chronic kidney disease, stage 2 (mild) (10) Hyperlipidemia Onset Date: 01/20/16 Current Visit: No Status: Chronic Qualifiers: Hyperlipidemia type: mixed hyperlipidemia Qualified Code(s): E78.2 - Mixed hyperlipidemia (11) Hypertension Onset Date: 01/20/16 Current Visit: No Status: Chronic Qualifiers: Hypertension type: primary hypertension Qualified Code(s): I10 - Essential (primary) hypertension - Plan repeat blood cultures drawn in ED, continue IV antibiotics, repeat lactate in the AM continue gentle fluid hydration, ECHO pending potassium and magnesium replacement protocol dietitian consulted for meal replacement type and screen done in ED, anemia workup pending, continue to monitor sliding scale insulin and accuchecks PT consulted BP stable, continue to monitor reconcile and continue home medications Discharge Plan: Home Plan to discharge in: 48 Hours - Advance Directives Does patient have a Living Will: Yes Does patient have a Durable POA for Healthcare: Yes - Code Status/Comfort Care Code Status Assessed: Yes (full code ) Critical Care: No Time Spent Managing Pts Care (In Minutes): 70
[2021-04-19] MEDS ORDERED: CEFEPIME/SWI 1gm 10 ML ONE (21:41)
[2021-04-19] MEDS ORDERED: ONDANSETRON 4 MG/2 ML VIAL IV PRN (22:54)
[2021-04-19] MEDS: KCL 20 MEQ/100 mL IVPB 20 MEQ/100 ML BAG IV SCH (22:54)
[2021-04-19] MEDS: INSULIN -REGULAR HUMAN 50 UNIT/0.5 ML ML SQ SCH (22:54)
[2021-04-19] MEDS: NA CHLORIDE 0.9% 1,000 ML IV SCH (22:54)
[2021-04-19] MEDS ORDERED: ACETAMINOPHEN 500 MG TAB PO PRN (22:54)
[2021-04-20] MEDS ORDERED: KCL 20 MEQ/100 mL IVPB 20 MEQ/100 ML BAG IV ONE ×2 (00:02→02:05)
[2021-04-20] MEDS ORDERED: NA CHLORIDE 0.9% 1,000 ML ONE ×2 (00:02→06:49)
[2021-04-20 00:11] VITALS: BMI 27.1
[2021-04-20] MEDS: KCL 20 MEQ/100 mL IVPB 20 MEQ/100 ML BAG IV SCH (02:20)
[2021-04-20 03:23] LABS: Absolute Lymphocytes (CBC) 0.9 K/uL (0.7-4.9); Basophils % 0.2 % (0-1.3); Hematocrit 21.7 % (36.0-45.0); Lymphocytes % 20.8 % (15.3-44.8); MPV 8.3 fL (7.6-11.3); RBC Red Blood Cell Count 2.49 M/uL (3.86-4.86)
[2021-04-20 04:03] LABS: ALT/SGPT 33 U/L (12-78); AST/SGOT 40 U/L (15-37); Albumin 2.4 g/dL (3.4-5.0); Alkaline Phosphatase 41 U/L (45-117); BUN Blood Urea Nitrogen 15 mg/dL (7-18); Bicarbonate 30 mmol/L (21-32); Bilirubin Total 0.6 mg/dL (0.2-1.0); Ferritin 20.4 ng/mL (8-388); Folic Acid, (Folate) 17.5 ng/mL (3.1-17.5); Glucose Level 84 mg/dL (74-106); HDL Cholesterol 58 mg/dL (40-60); LDL Cholesterol, Calculated 15 (<130); Phosphorus 2.4 mg/dL (2.5-4.9); Protein, Total 4.9 g/dL (6.4-8.2); Sodium Level 151 mmol/L (136-145); Thyroid Stimulating Hormone 0.052 uIU/mL (0.360-3.740); Transferrin 144 mg/dL (200-360)
[2021-04-20 04:06] LABS: Magnesium 1.4 mg/dL (1.8-2.4); Potassium 2.8 mmol/L (3.5-5.1)
[2021-04-20] MEDS ORDERED: CALCIUM GLUC 10% INJ 4.65 MEQ in NA CHLORIDE 0.9% 100 ML IV ONE ×2 (05:18→12:42)
[2021-04-20] MEDS ORDERED: CALCIUM GLUCONATE 1 GM IVPB 1 GM/50 ML BAG IV ONE (05:52)
[2021-04-20] MEDS ORDERED: NA CHLORIDE 0.9% 250 ML ONE ×3 (06:51→22:29)
[2021-04-20] MEDS ORDERED: ACETAMINOPHEN 500 MG TAB ONE (07:01)
[2021-04-20] MEDS: INSULIN -REGULAR HUMAN 50 UNIT/0.5 ML ML SQ SCH ×4 (07:30→21:00)
[2021-04-20] MEDS ORDERED: PNEUMOCOCCAL VACCINE 0.5 ML IMVAC ONE (08:00)
[2021-04-20] MEDS ORDERED: Pharmacy Consult 1 EA XX PRN (08:00)
[2021-04-20] MEDS ORDERED: APIXABAN 2.5 MG TABLET PO SCH (09:00)
[2021-04-20] MEDS ORDERED: clonazePAM 0.5 MG TAB PO ONE (11:43)
[2021-04-20] MEDS ORDERED: clonazePAM 0.5 MG TAB ONE (12:00)
--- NOTE | 2021-04-20 13:28 | ECHO ---
HEIGHT: 5 ft 4 in WEIGHT: 158 lb 0.085 oz DATE OF STUDY: 04/20/[address]: Artemio Shields 2-DIMENSIONAL: YES M.MODE: YES DOPPLER: YES COLOR FLOW: YES TDS: YES PORTABLE: NO DEFINITY: NO BUBBLE STUDY: NO DIAGNOSIS: EDEMA CARDIAC HISTORY: CATHERIZATION: SURGERY: PROSTHETIC VALVE: PACEMAKER: MEASUREMENTS (cm) DIASTOLIC (NORMALS) SYSTOLIC (NORMALS) IVSd 1.0 (0.6-1.2) LA Diam 4.6 (1.9-4.0) LVEF 60-65% LVIDd 4.9 (3.5-5.7) LVIDs 2.9 (2.0-3.5) %FS 42% LVPWd 1.1 (0.6-1.2) Ao Diam 3.0 (2.0-3.7) 2 DIMENSIONAL ASSESSMENT: RIGHT ATRIUM: NORMAL LEFT ATRIUM: NORMAL RIGHT VENTRICLE: NORMAL LEFT VENTRICLE: NORMAL TRICUSPID VALVE: MILDTRICUSPID REGURGITATION MITRAL VALVE: MITRAL ANNULAR CALCIFICATION, MILD MITRAL REGURGITATION PULMONIC VALVE: NORMAL AORTIC VALVE: NORMAL PERICARDIAL EFFUSION: NONE AORTIC ROOT: NORMAL LEFT VENTRICULAR WALL MOTION: NORMAL. DOPPLER/COLOR FLOW: MILD MITRAL REGURGITATION, MILD TRICUSPID REGURGITATION. COMMENTS: NORMAL LEFT VENTRICULAR EJECTION FRACTION 60-65%. NORMAL WALL MOTION. MODERATE DIASTOLIC DYSFUNCTION. TECHNOLOGIST: PARVEEN ALAN
[2021-04-20 16:30] LABS: Hematocrit 34.4 % (36.0-45.0)
[2021-04-20 16:41] LABS: Potassium 3.2 mmol/L (3.5-5.1)
[2021-04-20] MEDS: VANCOMYCIN/NS 1 gm 1 GM/250 ML BAG IVPB SCH (21:00)
[2021-04-20] MEDS: APIXABAN 2.5 MG TABLET PO SCH (22:00)
[2021-04-20] MEDS: clonazePAM 0.5 MG TAB PO PRN (22:00)
[2021-04-20] MEDS: NA CHLORIDE 0.9% 1,000 ML IV SCH (22:20)
[2021-04-20] MEDS ORDERED: VANCOMYCIN 1 GM/VIAL ONE (22:29)
[2021-04-21 05:41] LABS: Absolute Lymphocytes (CBC) 0.9 K/uL (0.7-4.9); Hematocrit 36.3 % (36.0-45.0); Lymphocytes % 15.5 % (15.3-44.8); RBC Red Blood Cell Count 4.18 M/uL (3.86-4.86)
[2021-04-21 06:03] LABS: BUN Blood Urea Nitrogen 11 mg/dL (7-18); Bicarbonate 27 mmol/L (21-32); Glucose Level 79 mg/dL (74-106); Magnesium 1.3 mg/dL (1.8-2.4); Potassium 3.1 mmol/L (3.5-5.1); Sodium Level 148 mmol/L (136-145)
[2021-04-21] MEDS: INSULIN -REGULAR HUMAN 50 UNIT/0.5 ML ML SQ SCH ×4 (07:30→22:04)
--- NOTE | 2021-04-21 08:39 | P.PN ---
Subjective Date of Service: 04/21/21 Primary Care Provider: Esequiel Chief Complaint: weakness, hypokalemia Subjective: No new changes Physical Examination - Vital Signs Temperature: 97.9 F Blood Pressure: 135/78 Pulse: 97 Respirations: 17 Pulse Ox (%): 97 Assessment & Plan Physician Review Additional Text: Physical Exam General: AAOx3, NAD HEENT: normal conjunctiva, sclera anicteric Respiratory: Clear to auscultation bilaterally, Normal air movement Cardiovascular: Regular rate/rhythm, Normal S1 S2, 1+ bilateral Edema Gastrointestinal: soft, nondistended, + epigastric tenderness to palpation Musculoskeletal: No joint tenderness Integumentary: No rashes Neurological: Normal speech, Normal affect Urinary: Casas catheter Problem List recent bacteremia acute on Chronic Anemia hypokalemia hypomagnesemia hypothyroidism, acquried chronic lymphedema Chronic afib h/o DVTs on chronic anticoagulation DM2, non-insulin dependent HLD HTN blood Cx (04/09) from ED grew +staph aureus, coag+; unclear if true infection vs contaminant, does not appear patient received antibiotics repeat blood cultures drawn in ED - NGTD, continue IV antibiotics. ID consulted echo done - diastolic dysfunction dc IVF, tolerating diet potassium and magnesium replacement protocol dietitian consulted for meal replacement type and screen done in ED, anemia workup pending, +iron deficiency, h/o UGI bleed s/p 2u PRBCs on 04/20, Hgb stable overnight pt was restarted on her home eliquis on 04/20 evening pt restarted on eliquis yesterday, will monitor for any further bleeding GI consulted given h/o GI bleed / PUD and anemia sliding scale insulin and accuchecks PT consulted reconcile and continue home medications dc casas catheter VTE: eliquis Code: full Dispo: anticipate dc home in ~2 days advanced care planning reviewed with patient and . Time spent: 30 minutes. Patient and plan on discharge home once stable. Time Spent Managing Pts Care (In Minutes): 40
[2021-04-21] MEDS: SOTALOL HCL 160 MG PO SCH (09:00)
[2021-04-21] MEDS: SOMATROPIN SQ SCH (09:00)
[2021-04-21] MEDS: LOSARTAN POTASSIUM 100 MG PO SCH (09:00)
[2021-04-21] MEDS: LEVOTHYROXINE SODIUM 175 MCG PO SCH (09:00)
[2021-04-21] MEDS ORDERED: Magnesium Sulfate 2gm IVPB 2 G/50 ML BAG IV ONE (11:05)
[2021-04-21] MEDS ORDERED: POTASSIUM CL SA 10 MEQ TAB PO ONE ×2 (11:07→23:05)
[2021-04-21 12:07] LABS: Hematocrit 37.7 % (36.0-45.0); MPV 8.4 fL (7.6-11.3); RBC Red Blood Cell Count 4.28 M/uL (3.86-4.86)
[2021-04-21] MEDS: HYDROCORTISONE 10 MG TAB PO SCH ×2 (12:35→18:54)
[2021-04-21] MEDS: ISOSORBIDE MONO SR 30 MG TAB PO SCH (12:36)
[2021-04-21] MEDS: APIXABAN 2.5 MG TABLET PO SCH ×2 (12:37→22:03)
[2021-04-21] MEDS: AMLODIPINE 5 MG TAB PO SCH (12:37)
[2021-04-21] MEDS: ATORVASTATIN 40 MG TAB PO SCH (12:41)
[2021-04-21] MEDS: PANTOPRAZOLE 40MG TABLET PO SCH (12:41)
[2021-04-21] MEDS: MIRTAZAPINE 15 MG TAB PO SCH (12:42)
[2021-04-21] MEDS: TRAMADOL HCL 50 MG TAB PO PRN (12:51)
[2021-04-21] MEDS: CALCIUM CARBONATE 500 MG TAB PO SCH ×2 (16:00→22:03)
--- NOTE | 2021-04-21 16:57 | EKG ---
Test Date: 2021-04-20 Test Time: 11:34:00 [employer]: TAMIR MEASUREMENT RESULTS: Intervals: Rate: 76 AK: 118 QRSD: 70 QT: 392 QTc: 441 Fence: P: 42 AK: 118 QRS: 3 T: -16 INTERPRETIVE STATEMENTS: Sinus rhythm with premature atrial complexes Nonspecific ST and T wave abnormality Abnormal ECG Compared to ECG 04/19/2021 16:07:35 Atrial premature complex(es) now present Ventricular premature complex(es) no longer present Prolonged QT interval no longer present ST (T wave) deviation still present Electronically Signed On 04-21-21 16:53:55 CDT by Heladio Diaz
[2021-04-21 22:34] LABS: Magnesium 1.9 mg/dL (1.8-2.4); Potassium 3.4 mmol/L (3.5-5.1)
[2021-04-21] MEDS: VANCOMYCIN/NS 1 gm 1 GM/250 ML BAG IVPB SCH (22:59)
[2021-04-22 06:28] LABS: Absolute Lymphocytes (CBC) 0.9 K/uL (0.7-4.9); Basophils % 0.2 % (0-1.3); Lymphocytes % 13.6 % (15.3-44.8); MPV 8.7 fL (7.6-11.3); RBC Red Blood Cell Count 3.53 M/uL (3.86-4.86)
[2021-04-22 06:50] LABS: BUN Blood Urea Nitrogen 14 mg/dL (7-18); Bicarbonate 25 mmol/L (21-32); Glucose Level 168 mg/dL (74-106); Sodium Level 147 mmol/L (136-145)
[2021-04-22] MEDS: INSULIN -REGULAR HUMAN 50 UNIT/0.5 ML ML SQ SCH ×4 (07:30→20:22)
[2021-04-22] MEDS: LEVOTHYROXINE SODIUM 175 MCG PO SCH (09:00)
[2021-04-22] MEDS: APIXABAN 2.5 MG TABLET PO SCH (09:00)
[2021-04-22] MEDS: SOMATROPIN SQ SCH (09:52)
[2021-04-22] MEDS: PANTOPRAZOLE 40MG TABLET PO SCH ×2 (09:54→16:22)
[2021-04-22] MEDS: ISOSORBIDE MONO SR 30 MG TAB PO SCH (09:55)
[2021-04-22] MEDS: HYDROCORTISONE 10 MG TAB PO SCH ×2 (09:55→16:22)
[2021-04-22] MEDS: ATORVASTATIN 40 MG TAB PO SCH (09:55)
[2021-04-22] MEDS: LOSARTAN POTASSIUM 100 MG PO SCH (09:56)
[2021-04-22] MEDS: CALCIUM CARBONATE 500 MG TAB PO SCH ×2 (09:56→20:39)
[2021-04-22] MEDS: AMLODIPINE 5 MG TAB PO SCH (09:56)
[2021-04-22] MEDS: MIRTAZAPINE 15 MG TAB PO SCH (09:56)
[2021-04-22] MEDS: SOTALOL HCL 160 MG PO SCH (09:56)
--- NOTE | 2021-04-22 10:00 | P.PN ---
Subjective Date of Service: 04/22/21 Primary Care Provider: Esequiel Chief Complaint: weakness, hypokalemia Subjective: Improving (feeling better, hgb dropped, scheduled for egd today) Review of Systems 10-point ROS is otherwise unremarkable Physical Examination - Vital Signs Temperature: 97.0 F Blood Pressure: 123/65 Pulse: 71 Respirations: 18 Pulse Ox (%): 96 Assessment & Plan Physician Review Additional Text: Physical Exam General: AAOx3, NAD HEENT: normal conjunctiva, sclera anicteric Respiratory: Clear to auscultation bilaterally, Normal air movement Cardiovascular: Regular rate/rhythm, Normal S1 S2 Gastrointestinal: soft, nondistended, + epigastric tenderness to palpation Musculoskeletal: No joint tenderness Integumentary: chronic lymphedema Problem List recent bacteremia, suspect contamination acute on Chronic Anemia hypokalemia hypomagnesemia hypothyroidism, acquried chronic lymphedema Chronic afib 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 ID consulted - agrees likely contaminant, dc' antibiotics echo done - diastolic dysfunction potassium and magnesium replacement protocol dietitian consulted for meal replacement type and screen done in ED, +iron deficiency, h/o UGI bleed s/p 2u PRBCs on 04/20, Hgb dropped from pt was restarted on her home eliquis on 04/20 evening GI consulted given h/o GI bleed / PUD and anemia sliding scale insulin and accuchecks PT consulted for EGD today VTE: eliquis - held for EGD / bleed Code: full Dispo: anticipate dc home in ~1-2 days advanced care planning reviewed with patient and . Time spent: 30 minutes. Patient and plan on discharge home once stable. Time Spent Managing Pts Care (In Minutes): 35
--- NOTE | 2021-04-22 10:54 | P.PN ---
Subjective Date of Service: 04/22/21 Primary Care Provider: Esequiel Chief Complaint: weakness, hypokalemia Patient is an 80-year-old female with a past medical history of diabetes, CKD, hypothyroidism, CVA, CHF, hyperlipidemia, AFib, hypertension, history of blood clots, bilateral lower extremity lymphedema and stasis dermatitis presented to the emergency department due to weakness and fatigue. Patient says that this has happened several times in the past and she has been treated for severe anemia and bleeding GI ulcers. Patient has received multiple blood transfusions. The states that for about the past 4 months she has been in and out of the hospital with the most recent admission being due to a bleeding ulcer requiring 8 units of blood transfusion. Infectious disease has been consulted as patient has a pot had a positive blood culture on 04/09 growing methicillin-susceptible Staphylococcus aureus. Unknown if patient was ever treated for bacteremia, however repeat blood cultures taken on 04/19 are negative and all culture bottles. Patient denies nausea, vomiting, diarrhea, shortness breath, chest pain, fever chills fatigue. Review of Systems 10-point ROS is otherwise unremarkable Physical Examination - Vital Signs Temperature: 97.0 F Blood Pressure: 123/65 Pulse: 71 Respirations: 18 Pulse Ox (%): 96 - Physical Exam General: Alert, In no apparent distress, Oriented x3 HEENT: Atraumatic, Normocephalic Neck: Supple, 2+ carotid pulse no bruit Respiratory: Clear to auscultation bilaterally Cardiovascular: No edema, Normal pulses, Regular rate/rhythm Gastrointestinal: Normal bowel sounds, Soft and benign, Other (Juvenal a papular rash noted on abdomen and groin area) Musculoskeletal: No clubbing, No swelling, No contractures Integumentary: Other (Bilateral lower extremity lymphedema and stasis dermatitis) Assessment And Plan - Plan Assessment: -bacteremia report on 04/09 -chronic anemia -hypothyroidism -bilateral lower extremity lymphedema and stasis dermatitis -diabetes mellitus Plan: -repeat blood cultures taken on 04/19 showed no growth in all bottles. Vancomycin discontinued. Continue to monitor WBC and fever curve. -medical management per primary team -continue to monitor for signs infection Plan of care discussed with Dr. Martin Thank you for consultation.
[2021-04-22] MEDS ORDERED: VANCOMYCIN 1.25 GM in NA CHLORIDE 0.9% 1 GM/250 ML BAG IVPB SCH (12:00)
[2021-04-22] MEDS ORDERED: GLUCERNA SHAKE 237 ML CAN PO PRN (16:25)
[2021-04-22 16:43] LABS: Hematocrit 30.7 % (36.0-45.0); MPV 8.5 fL (7.6-11.3); RBC Red Blood Cell Count 3.52 M/uL (3.86-4.86)
[2021-04-22] MEDS: clonazePAM 0.5 MG TAB PO PRN (20:41)
[2021-04-23] MEDS: TRAMADOL HCL 50 MG TAB PO PRN (04:48)
[2021-04-23 06:27] LABS: Absolute Lymphocytes (CBC) 0.5 K/uL (0.7-4.9); Basophils % 0.4 % (0-1.3); Lymphocytes % 9.1 % (15.3-44.8); MPV 8.2 fL (7.6-11.3); RBC Red Blood Cell Count 4.31 M/uL (3.86-4.86)
[2021-04-23 07:00] LABS: Albumin 2.4 g/dL (3.4-5.0); Bilirubin Total 0.9 mg/dL (0.2-1.0); Potassium 3.4 mmol/L (3.5-5.1); Protein, Total 5.6 g/dL (6.4-8.2)
[2021-04-23] MEDS: PANTOPRAZOLE 40MG TABLET PO SCH ×2 (07:30→16:42)
[2021-04-23] MEDS: INSULIN -REGULAR HUMAN 50 UNIT/0.5 ML ML SQ SCH ×4 (07:30→21:21)
--- NOTE | 2021-04-23 07:55 | P.PN ---
Subjective Date of Service: 04/23/21 Primary Care Provider: Esequiel Chief Complaint: weakness, hypokalemia Subjective: Other (worsening renal function with hypernatremia, hyperchloremia, pt reports slight suprapubic pain with urination. Hgb stable, scheduled for EGD today) Review of Systems 10-point ROS is otherwise unremarkable Physical Examination - Vital Signs Temperature: 97.4 F Blood Pressure: 182/91 Pulse: 89 Respirations: 19 Pulse Ox (%): 99 Assessment & Plan Physician Review Additional Text: Physical Exam General: AAOx3, uncomfortable HEENT: normal conjunctiva, sclera anicteric Respiratory: Clear to auscultation bilaterally, Normal air movement Cardiovascular: Regular rate/rhythm, Normal S1 S2 Gastrointestinal: soft, nondistended, + epigastric tenderness to palpation, +suprapubic pain on palpation Musculoskeletal: No joint tenderness Integumentary: chronic lymphedema, b/l erythematous rash in upper thighs Problem List recent bacteremia, suspect contamination acute on Chronic Anemia, h/o GI Bleed / PUD RENATA, likely prerenal hypokalemia hypomagnesemia hypothyroidism, acquired chronic lymphedema Chronic afib 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 ID consulted - agrees likely contaminant, dc'd antibiotics echo done - diastolic dysfunction potassium and magnesium replacement protocol type and screen done in ED, +iron deficiency, h/o UGI bleed s/p 2u PRBCs on 04/20, hgb overall appears to be stable, initial drop, increase today may be partly hemoconcentration Mild RENATA this morning, suspect prerenal/dehydration, with hypernatremia/hyperchloremia. Nephrology consulted. On D5 GI consulted given h/o GI bleed / PUD and anemia. For EGD today Patient with significant suprapubic pain, she did have a recent Taylor removed. Possible UTI, afebrile, no leukocytosis Given the severity of her discomfort/pain, will obtain CT abdomen/pelvis. Patient had a bowel movement this morning sliding scale insulin and accuchecks PT consulted VTE: eliquis - held for EGD / bleed Code: full Dispo: anticipate dc home in ~1-2 days Time Spent Managing Pts Care (In Minutes): 40
[2021-04-23] MEDS: HYDROCORTISONE 10 MG TAB PO SCH ×2 (08:00→16:42)
[2021-04-23] MEDS ORDERED: D5.45NS W/KCL 20MEQ 20 MEQ/1,000 ML BAG IV SCH (08:00)
[2021-04-23] MEDS: LEVOTHYROXINE SODIUM 175 MCG PO SCH (08:51)
[2021-04-23] MEDS: ISOSORBIDE MONO SR 30 MG TAB PO SCH (08:51)
[2021-04-23] MEDS: ATORVASTATIN 40 MG TAB PO SCH (08:52)
[2021-04-23] MEDS: LOSARTAN POTASSIUM 100 MG PO SCH (08:52)
[2021-04-23] MEDS: CALCIUM CARBONATE 500 MG TAB PO SCH (08:53)
[2021-04-23] MEDS: AMLODIPINE 5 MG TAB PO SCH (08:53)
[2021-04-23] MEDS: MIRTAZAPINE 15 MG TAB PO SCH (08:53)
[2021-04-23] MEDS: SOTALOL HCL 160 MG PO SCH (08:54)
[2021-04-23] MEDS: MORPHINE 2 MG/ML SYR IV PRN ×3 (08:56→23:44)
[2021-04-23] MEDS: SOMATROPIN SQ SCH (08:56)
--- NOTE | 2021-04-23 10:01 | RAD REPORT ---
EXAM DESCRIPTION: CT - Abdomen Pelvis Wo Contrast - 04/23/2021 9:26 am CLINICAL HISTORY: Abdominal pain COMPARISON: April 09, 2021 TECHNIQUE: Computed axial tomography of the abdomen and pelvis was obtained. IV and oral contrast we re not requested. All CT scans are performed using dose optimization technique as appropriate and may include automated exposure control or mA/KV adjustment according to patient size. FINDINGS: The evaluation of solid organs, vessels and bowel is limited secondary to the lack of con trast administration. Small hepatic cysts. Spleen, pancreas, adrenals and kidneys appear grossly normal. The rectum is mildly distended with stool. Moderate amount stool within the colon. Spondylosis of lumbar spine results in marked spinal stenosis. IVC filter in place. Cement has been p laced into several old lumbar vertebral body fractures IMPRESSION: Rectum is mildly distended with stool. Moderate amount stool throughout colon.
[2021-04-23] MEDS ORDERED: NA CHLORIDE 0.9% 1,000 ML ONE (11:05)
[2021-04-23] MEDS ORDERED: EPINEPHRINE/PF 1 MG/ML AMP ONE (11:29)
[2021-04-23] MEDS ORDERED: Phenylephrine HCl 10 MG/ML 1 ML VIAL ONE (11:36)
[2021-04-23] MEDS ORDERED: NS 0.9% VIAL 10 ML ONE (11:36)
[2021-04-23] MEDS ORDERED: propofoL 200 MG/20 ML VIAL IV ONE (11:36)
[2021-04-23] MEDS ORDERED: LIDOCAINE 1% MPF 5 ML VIAL ONE (11:36)
[2021-04-23] MEDS ORDERED: ETOMIDATE 20 MG/10 ML VIAL IV ONE (11:37)
--- NOTE | 2021-04-23 11:55 | ENDO RPT ---
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 bleeding, history of GI bleed with PUD requiring 8 units PRBCs at [facility] 1-2 weeks ago PROCEDURE PERFORMED: EGD with biopsy MEDICATIONS: Per Anesthesia. TOPICAL ANESTHETIC: none CONSENT: The patient understands the risks and benefits of the procedure and understands that these risks include, but are not limited to: sedation, allergic reaction, infection, perforation and/or bleeding. Alternative means of evaluation and treatment include, among others: physical exam, x-rays, and/or surgical intervention. The patient elects to proceed with this endoscopic procedure. DESCRIPTION OF PROCEDURE: During intra-op preparation period all mechanical medical equipment was checked for proper function. Hand hygiene and appropriate measures for infection prevention was taken. Procedure, possible complications, and alternatives including but not limited to the possibility of bleeding, perforation, tear, infection, sepsis, need for surgery, need for blood transfusion, and anesthesia related complications were explained to the patient. After the risks, benefits and alternatives of the procedure were thoroughly explained, Informed consent was verified, confirmed and timeout was successfully executed by the treatment team. The patient was placed in the left lateral position. The patient was anesthetized with topical anesthesia. Through the anesthetized oropharyngeal area, the scope was passed without any difficulty. The EG-[id number] ([id number]) endoscope was introduced through the mouth and advanced to the third portion of the duodenum. Retroflexed views revealed no abnormalities. The gastroscope was then slowly withdrawn and removed. Nodular mucosa was found in the body of the stomach. Multiple biopsies were obtained and sent to pathology. Severe gastritis was found in the antrum. Multiple biopsies were obtained and sent to pathology. Multiple ulcers were found in the fundus. Multiple ulcers were found in the antrum. ADVERSE EVENTS: There were no complications. IMPRESSIONS: 1. Mild nodular mucosa in the body of the stomach, s/p biopsies 2. Severe gastritis in the antrum, s/p biopsies fundus 4. Multiple (3) 2-3 mm clean-based ulcers in the antrum RECOMMENDATIONS: 1. await biopsy results 2. acid suppression therapy REPEAT EXAM: Vinnie Garcia Dr eSigned: Vinnie Garcia Dr 04/23/2021 11:55 AM cc: CPT CODES: ICD9 CODES: PATIENT NAME: Emelia Payan MR#: [id number]
[2021-04-23] MEDS ORDERED: MAGNESIUM 50% 3 GM in NA CHLORIDE 0.9% 100 ML IV ONE (12:29)
[2021-04-23] MEDS: D5W 1,000 ML with POTASSIUM CL 20 MEQ IV SCH ×4 (13:13→21:24)
--- NOTE | 2021-04-23 13:25 | P.PN ---
Subjective Date of Service: 04/23/21 Primary Care Provider: Esequiel Chief Complaint: weakness, hypokalemia Patient seen examined at bedside, status post endoscopy. Endoscopy showing severe gastritis with multiple clean base ulcerations. Fecal occult blood positive. Patient complaining of bilateral lower quadrant abdominal pain. States her last bowel movement was Tuesday, CT abdomen pelvis showing signs of constipation. Review of Systems 10-point ROS is otherwise unremarkable Physical Examination - Vital Signs Temperature: 97.9 F Blood Pressure: 137/65 Pulse: 79 Respirations: 14 Pulse Ox (%): 96 - Studies Laboratory Last Values WBC 4.40 K/uL (4.3-10.9) D 04/20/21 02:33 RBC 2.49 M/uL (3.86-4.86) L 04/20/21 02:33 Hgb 6.8 g/dL (12.0-15.0) L* 04/20/21 02:33 Hct 21.7 % (36.0-45.0) L D 04/20/21 02:33 MCV 87.0 fL (80-100) 04/20/21 02:33 MCH 27.2 pg (27.0-35.0) 04/20/21 02:33 MCHC 31.3 g/dL (32.0-36.0) L 04/20/21 02:33 RDW 18.8 % (12.1-15.2) H 04/20/21 02:33 Plt Count 149 K/uL (152-406) L 04/20/21 02:33 MPV 8.3 fL (7.6-11.3) 04/20/21 02:33 Neutrophils % 74.0 % (41.7-73.7) H 04/20/21 02:33 Lymphocytes % 20.8 % (15.3-44.8) 04/20/21 02:33 Monocytes % 4.2 % (3.3-12.3) 04/20/21 02:33 Eosinophils % 0.8 % (0-4.4) 04/20/21 02:33 Basophils % 0.2 % (0-1.3) 04/20/21 02:33 Absolute Neutrophils 3.2 K/uL (1.8-8.0) 04/20/21 02:33 Absolute Lymphocytes 0.9 K/uL (0.7-4.9) 04/20/21 02:33 Absolute Monocytes 0.2 K/uL (0.1-1.3) 04/20/21 02:33 Absolute Eosinophils 0.0 K/uL (0-0.5) 04/20/21 02:33 Absolute Basophils 0.0 K/uL (0-0.5) 04/20/21 02:33 Platelet Estimate Adeq 04/19/21 16:00 Polychromasia 1+ 04/19/21 16:00 Anisocytosis 1+ 04/19/21 16:00 Morphology Comment Noted (NOT SEEN) 04/19/21 16:00 PT 17.7 SECONDS (9.5-12.5) H 04/19/21 16:00 INR 1.53 04/19/21 16:00 Sodium 151 mmol/L (136-145) H 04/20/21 02:33 Potassium 2.8 mmol/L (3.5-5.1) L* 04/20/21 02:33 Chloride 117 mmol/L (98-107) H 04/20/21 02:33 Carbon Dioxide 30 mmol/L (21-32) 04/20/21 02:33 BUN 15 mg/dL (7-18) 04/20/21 02:33 Creatinine 0.47 mg/dL (0.55-1.3) L 04/20/21 02:33 Estimated GFR > 90 mL/min (=/>90) 04/20/21 02:33 Glucose 84 mg/dL (74-106) 04/20/21 02:33 Lactic Acid 2.5 mmol/L (0.4-2.0) H 04/20/21 06:11 Calcium 6.3 mg/dL (8.5-10.1) L* D 04/20/21 02:33 Phosphorus 2.4 mg/dL (2.5-4.9) L 04/20/21 02:33 Magnesium 1.4 mg/dL (1.8-2.4) L* 04/20/21 02:33 Iron 19.0 ug/dL (50-170) L 04/20/21 02:33 TIBC 202 ug/dL (250-460) L 04/20/21 02:33 Transferrin 144 mg/dL (200-360) L 04/20/21 02:33 Transferrin % Sat 9.4 % (20.0-50.0) L 04/20/21 02:33 Ferritin 20.4 ng/mL (8-388) 04/20/21 02:33 Total Bilirubin 0.6 mg/dL (0.2-1.0) 04/20/21 02:33 Direct Bilirubin 0.2 mg/dL (0-0.2) 04/19/21 16:00 AST 40 U/L (15-37) H 04/20/21 02:33 ALT 33 U/L (12-78) 04/20/21 02:33 Alkaline Phosphatase 41 U/L (45-117) L 04/20/21 02:33 Rapid Troponin I < 0.02 ng/mL (0.0-0.045) 04/19/21 16:00 NT-Pro-B Natriuret Pep 754 pg/mL (<450) H 04/19/21 16:00 Serum Total Protein 4.9 g/dL (6.4-8.2) L 04/20/21 02:33 Albumin 2.4 g/dL (3.4-5.0) L 04/20/21 02:33 Globulin 2.5 g/dL (2.3-3.5) D 04/20/21 02:33 Albumin/Globulin Ratio 1.0 (1.1-1.8) L 04/20/21 02:33 Triglycerides 150 mg/dL (<150) 04/20/21 02:33 Cholesterol 103 mg/dL (<200) 04/20/21 02:33 LDL Cholesterol, Calc 15 (<130) 04/20/21 02:33 HDL Cholesterol 58 mg/dL (40-60) 04/20/21 02:33 Cholesterol/HDL Ratio 1.78 04/20/21 02:33 Vitamin B12 370 pg/mL (193-986) 04/20/21 02:33 Serum Folate 17.5 ng/mL (3.1-17.5) 04/20/21 02:33 Procalcitonin < 0.05 ng/mL (<0.050) 04/19/21 16:00 TSH 0.052 uIU/mL (0.360-3.740) L 04/20/21 02:33 Free T4 0.88 ng/dL (0.76-1.46) 04/20/21 02:33 Urine pH 7.0 (5.0-7.0) 04/19/21 16:27 Ur Specific [place] 1.015 (1.005-1.030) 04/19/21 16:27 Glucose (UA)(Auto) Negative (Negative) 04/19/21 16:27 Urine Ketones Negative (Negative) 04/19/21 16:27 Urine Blood Negative (Negative) 04/19/21 16:27 Urine Nitrite Negative (Negative) 04/19/21 16:27 Ur Leukocyte Esterase Negative (Negative) 04/19/21 16:27 Urine RBC None seen /HPF (NONE SEEN) 04/19/21 16:27 Urine WBC <5 /HPF (<5) 04/19/21 16:27 Ur Squamous Epith Cells 5-10 /HPF (NONE SEEN) H 04/19/21 16:27 Urine Bacteria <20 /HPF (<20) 04/19/21 16:27 Hyaline Casts 0-5 /LPF (NONE SEEN) 04/19/21 16:27 Urine Culture Reflexed Not needed 04/19/21 16:27 Urine Total Protein Negative (Negative) 04/19/21 16:27 Influenza Type A RNA Negative (NEGATIVE) 04/19/21 16:05 Influenza Type B RNA Negative (NEGATIVE) 04/19/21 16:05 SARS-CoV-2 RNA (RT-PCR) Negative (NEGATIVE) 04/19/21 16:05 Smear Scan Ok (OK) 04/19/21 16:00 ABO/Rh B POSITIVE 04/19/21 16:00 Solid Phase Ab Screen Negative 04/19/21 16:00 Crossmatch See Detail 04/19/21 16:00 Assessment And Plan - Plan Assessment: -bacteremia report on 04/09 -bilateral lower quadrant abdominal pain worse with urination -chronic anemia -hypothyroidism -bilateral lower extremity lymphedema and stasis dermatitis -diabetes mellitus Plan: -repeat blood cultures taken on 04/19 showed no growth in all bottles. Vancomycin discontinued. Continue to monitor WBC and fever curve. No need for antibiotic therapy at this time. -abdominal pain: UA pending. CT abdomen pelvis showed no acute process however did show stool throughout colon. Patient states that her last bowel movement was this past Tuesday. -medical management per primary team -continue to monitor for signs infection Plan of care discussed with Dr. Martin Thank you for consultation.
[2021-04-23 15:00] LABS: Urine Appearance CLEAR (Clear); Urine Bilirubin NEGATIVE (Negative); Urine Blood NEGATIVE (Negative); Urine Color YELLOW (Yellow); Urine Glucose NEGATIVE (Negative); Urine Protein TRACE (Negative); Urine Specific Gravity <=1.005 (1.005-1.030); Urine Urobilinogen 0.2 mg/dL (0.2-1.0)
--- NOTE | 2021-04-23 15:04 | CON ---
Date of Consultation: 04/23/2021 Reason For Consultation: Elevated BUN and creatinine, hypernatremia. History Of Present Illness: This is a pleasant 80-year-old female with significant past medical history of CVA, hypothyroidism, diabetes complicated with neuropathy, congestive heart failure with diastolic dysfunction moderate, hypothyroidism, the patient was in her regular state of health. The patient complaining from weakness with nausea without any vomiting. The patient brought to the hospital. The patient also complaining from polyuria upon arrival to the hospital. The patient's potassium was down to 2.5 with hypomagnesemia 1.6 with hypernatremia, sodium 148. The patient was admitted to the hospital. IV fluid has been initiated. Sodium today up to 150. The patient undergone EGD. Feeling slightly better, but is still nauseated. Did not eat, any oral intake yet for the preparation for EGD. EGD found only gastritis. Reviewing the record for the patient, apparently the patient on losartan. Past Medical History: Includes; 1. Chronic kidney disease. 2. Hypertension. 3. Diabetes complicated with neuropathy. 4. CVA. 5. Congestive heart failure, diastolic dysfunction. 6. AFib. Home Medications: Include amlodipine, cholecalciferol, glipizide, levothyroxine, losartan, sotalol, atorvastatin, fenofibrate, and hydrocortisone. Allergies: TO CIPRO, XARELTO, ZOSYN. Past Surgical History: Includes lumpectomy, breast tumor removal, pituitary gland removal, appendectomy. Family History: Positive for hypertension and CAD. Social History: Denied smoking, denied drinking, denied drug abuse. Review of Systems: Head and Neck: No red eye. No ear pain. GI: Has epigastric pain. Has nausea and vomiting, poor intake. : Has polyuria. No dysuria. No hematuria. No nocturia. [place]: No vaginal discharge. Respiratory: No shortness of breath. Cardiovascular: No chest pain. No leg swelling. Endocrine: No polydipsia. Skin: No rash. Neuro: Has neuropathy. Musculoskeletal: Generalized fatigue. Physical Examination: Vital Signs: Blood pressure 127/54, pulse of 81, afebrile. Chest: Clear to auscultation. Heart: S1, S2. Regular. Abdomen: Soft. Mild tenderness on the right upper quadrant and epigastric area. No guarding or rebound. Extremity: No edema. Neurologic: Alert. No focality. Laboratory Data: Upon admitting to the hospital on the ; sodium 148, potassium 2.5, bicarb 29, BUN 24, creatinine 0.8, calcium 7.6, magnesium 1.6. Latest lab data today; sodium 150, potassium 3.4, bicarb 23, BUN 19, creatinine 1.2, calcium 7.9. PTH 141, vitamin D 58, TSH 0.05. Urinalysis; specific gravity of 1.015, negative for infection. Current Medications: The patient on include; 1. Calcium carbonate. 2. Amlodipine 5 mg daily. 3. Isosorbide. 4. Atorvastatin. 5. Mirtazapine. 6. Pantoprazole. 7. Zofran. 8. Tramadol. 9. Levothyroxine. 10. Morphine. 11. D5 half normal. 12. Hydrocortisone. 13. Sumatriptan. 14. Sotalol. Assessment And Plan: 1. Acute kidney injury secondary to prerenal, secondary to GI loss. I am going to continue the patient on hydration and we will monitor the patient. The patient had CT abdomen, which ruled out any obstruction. I am going to continue hydration. We will change IV fluid. 2. Hypernatremia secondary to poor intake with hypomagnesemia and hypokalemia. We will change IV fluid to D5 with potassium and we will follow up response. We will monitor the patient. 3. Hypertension, controlled, optimal. Continue current medications. 4. Hypokalemia, hypomagnesemia. We will supplement. 5. Hypothyroidism. Continue supplement. 6. Gastritis. Follow up with GI. Time spent examining the patient [id number] placing order discussing with the patient reviewing data discussing the case with all of our subspecialty including hospitalist 65 minutes EYAL Voice ID: [id number] Report ID: [id number] JAMES
[2021-04-23 15:23] LABS: Urine Microscopic Reflex ORDER UMIC
[2021-04-23 15:51] LABS: Urine Bacteria <20 /HPF (<20); Urine RBC NONE SEEN /HPF (NONE SEEN)
[2021-04-23] MEDS: DOCUSATE NA 100 MG CAP PO SCH (21:00)
[2021-04-23] MEDS: NYSTATIN 100MU/GM CREAM 15GM TOP SCH (21:16)
[2021-04-24 00:13] LABS: Vitamin D 1,25-Dihydroxy Total 26 pg/mL (18-72); Vitamin D,1,25-OH2, D2 <8 pg/mL
[2021-04-24] MEDS: TRAMADOL HCL 50 MG TAB PO PRN (04:50)
[2021-04-24 05:53] LABS: Hematocrit 34.2 % (36.0-45.0); MPV 8.4 fL (7.6-11.3); RBC Red Blood Cell Count 3.86 M/uL (3.86-4.86)
[2021-04-24 06:12] LABS: Albumin 2.2 g/dL (3.4-5.0); Magnesium 2.4 mg/dL (1.8-2.4); Phosphorus 2.9 mg/dL (2.5-4.9); Potassium 4.2 mmol/L (3.5-5.1)
--- NOTE | 2021-04-24 06:24 | P.PN ---
Subjective Date of Service: 04/24/21 Primary Care Provider: Esequiel Chief Complaint: weakness, hypokalemia Subjective: No new changes Physical Examination - Vital Signs Temperature: 97.6 F Blood Pressure: 157/71 Pulse: 70 Respirations: 17 Pulse Ox (%): 96 - Physical Exam General: Other (appears as her stated age) HEENT: Normocephalic Neck: Supple, JVD not distended Respiratory: Normal air movement Cardiovascular: No rubs, No murmurs Gastrointestinal: Soft and benign Musculoskeletal: No clubbing Integumentary: No warmth Urinary: Other (no bladder distention) Assessment And Plan - Plan 1. Acute kidney injury secondary to prerenal, secondary to GI loss c/b prerenal/ATN from contrast-induced nephropathy. Urine sodium high yesterday consistent with most likely ongoing ATN state. Assess for urinary retention via bladder scan for PVR. increase by mouth fluid intake as able. Monitor renal panel. 2. Hypernatremia secondary to poor po fluid intake. Improved. patient encouraged to increase by mouth fluid intake as able. 3. Hypertension. BP controlled. Continue current BP medications. 4. Hypokalemia. Improved. Monitor/replete prn.
[2021-04-24] MEDS: INSULIN -REGULAR HUMAN 50 UNIT/0.5 ML ML SQ SCH ×4 (07:10→22:25)
[2021-04-24] MEDS ORDERED: POLYETHYL GLY 3350 17 GM/DOSE PO PRN (09:00)
[2021-04-24] MEDS: LEVOTHYROXINE SODIUM 175 MCG PO SCH (09:00)
[2021-04-24] MEDS: HYDROCORTISONE 10 MG TAB PO SCH ×2 (09:52→16:55)
[2021-04-24] MEDS: PANTOPRAZOLE 40MG TABLET PO SCH ×2 (09:53→16:56)
[2021-04-24] MEDS: MIRTAZAPINE 15 MG TAB PO SCH (09:53)
[2021-04-24] MEDS: DOCUSATE NA 100 MG CAP PO SCH ×2 (09:53→20:35)
[2021-04-24] MEDS: ISOSORBIDE MONO SR 30 MG TAB PO SCH (09:53)
[2021-04-24] MEDS: ATORVASTATIN 40 MG TAB PO SCH (09:53)
[2021-04-24] MEDS: LOSARTAN POTASSIUM 100 MG PO SCH (09:54)
[2021-04-24] MEDS: SOTALOL HCL 160 MG PO SCH (09:55)
[2021-04-24] MEDS: D5W 1,000 ML with POTASSIUM CL 20 MEQ IV SCH ×6 (09:56→20:35)
[2021-04-24] MEDS: NYSTATIN 100MU/GM CREAM 15GM TOP SCH ×2 (09:58→20:35)
[2021-04-24] MEDS: AMLODIPINE 5 MG TAB PO SCH (10:00)
[2021-04-24] MEDS: SOMATROPIN SQ SCH (10:09)
--- NOTE | 2021-04-24 11:05 | P.PN ---
Subjective Date of Service: 04/24/21 Primary Care Provider: Esequiel Chief Complaint: weakness, hypokalemia Patient seen examined at bedside, with slight erythematous rash noted to bilateral upper RI/groin area with satellite regions present. Patient likely has fungal dermatitis. Nystatin ointment started, rash improving. <Susana Carey - Last Filed: 04/24/21 11:04> Date of Service: 04/24/21 <Vi Aragon - Last Filed: 04/24/21 12:03> Review of Systems 10-point ROS is otherwise unremarkable <Susana Carey - Last Filed: 04/24/21 11:04> Physical Examination - Vital Signs Temperature: 97.3 F Blood Pressure: 126/60 Pulse: 66 Respirations: 18 Pulse Ox (%): 98 - Studies Laboratory Last Values WBC 4.40 K/uL (4.3-10.9) D 04/20/21 02:33 RBC 2.49 M/uL (3.86-4.86) L 04/20/21 02:33 Hgb 6.8 g/dL (12.0-15.0) L* 04/20/21 02:33 Hct 21.7 % (36.0-45.0) L D 04/20/21 02:33 MCV 87.0 fL (80-100) 04/20/21 02:33 MCH 27.2 pg (27.0-35.0) 04/20/21 02:33 MCHC 31.3 g/dL (32.0-36.0) L 04/20/21 02:33 RDW 18.8 % (12.1-15.2) H 04/20/21 02:33 Plt Count 149 K/uL (152-406) L 04/20/21 02:33 MPV 8.3 fL (7.6-11.3) 04/20/21 02:33 Neutrophils % 74.0 % (41.7-73.7) H 04/20/21 02:33 Lymphocytes % 20.8 % (15.3-44.8) 04/20/21 02:33 Monocytes % 4.2 % (3.3-12.3) 04/20/21 02:33 Eosinophils % 0.8 % (0-4.4) 04/20/21 02:33 Basophils % 0.2 % (0-1.3) 04/20/21 02:33 Absolute Neutrophils 3.2 K/uL (1.8-8.0) 04/20/21 02:33 Absolute Lymphocytes 0.9 K/uL (0.7-4.9) 04/20/21 02:33 Absolute Monocytes 0.2 K/uL (0.1-1.3) 04/20/21 02:33 Absolute Eosinophils 0.0 K/uL (0-0.5) 04/20/21 02:33 Absolute Basophils 0.0 K/uL (0-0.5) 04/20/21 02:33 Platelet Estimate Adeq 04/19/21 16:00 Polychromasia 1+ 04/19/21 16:00 Anisocytosis 1+ 04/19/21 16:00 Morphology Comment Noted (NOT SEEN) 04/19/21 16:00 PT 17.7 SECONDS (9.5-12.5) H 04/19/21 16:00 INR 1.53 04/19/21 16:00 Sodium 151 mmol/L (136-145) H 04/20/21 02:33 Potassium 2.8 mmol/L (3.5-5.1) L* 04/20/21 02:33 Chloride 117 mmol/L (98-107) H 04/20/21 02:33 Carbon Dioxide 30 mmol/L (21-32) 04/20/21 02:33 BUN 15 mg/dL (7-18) 04/20/21 02:33 Creatinine 0.47 mg/dL (0.55-1.3) L 04/20/21 02:33 Estimated GFR > 90 mL/min (=/>90) 04/20/21 02:33 Glucose 84 mg/dL (74-106) 04/20/21 02:33 Lactic Acid 2.5 mmol/L (0.4-2.0) H 04/20/21 06:11 Calcium 6.3 mg/dL (8.5-10.1) L* D 04/20/21 02:33 Phosphorus 2.4 mg/dL (2.5-4.9) L 04/20/21 02:33 Magnesium 1.4 mg/dL (1.8-2.4) L* 04/20/21 02:33 Iron 19.0 ug/dL (50-170) L 04/20/21 02:33 TIBC 202 ug/dL (250-460) L 04/20/21 02:33 Transferrin 144 mg/dL (200-360) L 04/20/21 02:33 Transferrin % Sat 9.4 % (20.0-50.0) L 04/20/21 02:33 Ferritin 20.4 ng/mL (8-388) 04/20/21 02:33 Total Bilirubin 0.6 mg/dL (0.2-1.0) 04/20/21 02:33 Direct Bilirubin 0.2 mg/dL (0-0.2) 04/19/21 16:00 AST 40 U/L (15-37) H 04/20/21 02:33 ALT 33 U/L (12-78) 04/20/21 02:33 Alkaline Phosphatase 41 U/L (45-117) L 04/20/21 02:33 Rapid Troponin I < 0.02 ng/mL (0.0-0.045) 04/19/21 16:00 NT-Pro-B Natriuret Pep 754 pg/mL (<450) H 04/19/21 16:00 Serum Total Protein 4.9 g/dL (6.4-8.2) L 04/20/21 02:33 Albumin 2.4 g/dL (3.4-5.0) L 04/20/21 02:33 Globulin 2.5 g/dL (2.3-3.5) D 04/20/21 02:33 Albumin/Globulin Ratio 1.0 (1.1-1.8) L 04/20/21 02:33 Triglycerides 150 mg/dL (<150) 04/20/21 02:33 Cholesterol 103 mg/dL (<200) 04/20/21 02:33 LDL Cholesterol, Calc 15 (<130) 04/20/21 02:33 HDL Cholesterol 58 mg/dL (40-60) 04/20/21 02:33 Cholesterol/HDL Ratio 1.78 04/20/21 02:33 Vitamin B12 370 pg/mL (193-986) 04/20/21 02:33 Serum Folate 17.5 ng/mL (3.1-17.5) 04/20/21 02:33 Procalcitonin < 0.05 ng/mL (<0.050) 04/19/21 16:00 TSH 0.052 uIU/mL (0.360-3.740) L 04/20/21 02:33 Free T4 0.88 ng/dL (0.76-1.46) 04/20/21 02:33 Urine pH 7.0 (5.0-7.0) 04/19/21 16:27 Ur Specific [place] 1.015 (1.005-1.030) 04/19/21 16:27 Glucose (UA)(Auto) Negative (Negative) 04/19/21 16:27 Urine Ketones Negative (Negative) 04/19/21 16:27 Urine Blood Negative (Negative) 04/19/21 16:27 Urine Nitrite Negative (Negative) 04/19/21 16:27 Ur Leukocyte Esterase Negative (Negative) 04/19/21 16:27 Urine RBC None seen /HPF (NONE SEEN) 04/19/21 16:27 Urine WBC <5 /HPF (<5) 04/19/21 16:27 Ur Squamous Epith Cells 5-10 /HPF (NONE SEEN) H 04/19/21 16:27 Urine Bacteria <20 /HPF (<20) 04/19/21 16:27 Hyaline Casts 0-5 /LPF (NONE SEEN) 04/19/21 16:27 Urine Culture Reflexed Not needed 04/19/21 16:27 Urine Total Protein Negative (Negative) 04/19/21 16:27 Influenza Type A RNA Negative (NEGATIVE) 04/19/21 16:05 Influenza Type B RNA Negative (NEGATIVE) 04/19/21 16:05 SARS-CoV-2 RNA (RT-PCR) Negative (NEGATIVE) 04/19/21 16:05 Smear Scan Ok (OK) 04/19/21 16:00 ABO/Rh B POSITIVE 04/19/21 16:00 Solid Phase Ab Screen Negative 04/19/21 16:00 Crossmatch See Detail 04/19/21 16:00 <Susana Carey - Last Filed: 04/24/21 11:04> Assessment And Plan - Plan Assessment: -bacteremia report on 04/09 -bilateral lower quadrant abdominal pain worse with urination -chronic anemia -hypothyroidism -bilateral lower extremity lymphedema and stasis dermatitis -diabetes mellitus Plan: -repeat blood cultures taken on 04/19 showed no growth in all bottles. Vancomycin discontinued. Continue to monitor WBC and fever curve. No need for antibiotic therapy at this time. -abdominal pain: UA pending. CT abdomen pelvis showed no acute process however did show stool throughout colon. Patient states that her last bowel movement was this past Tuesday. -medical management per primary team -continue to monitor for signs infection Plan of care discussed with Dr. Martin Thank you for consultation. <Susana Carey - Last Filed: 04/24/21 11:04>
--- NOTE | 2021-04-24 15:12 | P.PN ---
Subjective Date of Service: 04/24/21 Primary Care Provider: Esequiel Chief Complaint: weakness, hypokalemia Subjective: Improving (Had several bowel movements since yesterday, lower abdominal pain improved, feeling much better, feels like she is getting ready to go home. States she is ambulating okay) Review of Systems 10-point ROS is otherwise unremarkable Physical Examination - Vital Signs Temperature: 97.4 F Blood Pressure: 132/62 Pulse: 83 Respirations: 16 Pulse Ox (%): 95 Assessment & Plan Physician Review Additional Text: Physical Exam General: AAOx3, NAD HEENT: normal conjunctiva, sclera anicteric Respiratory: Clear to auscultation bilaterally, Normal air movement Cardiovascular: Regular rate/rhythm, Normal S1 S2 Gastrointestinal: soft, nondistended, +mild-mod epigastric tenderness to palpation, +mild suprapubic pain on palpation Musculoskeletal: No joint tenderness Integumentary: chronic lymphedema, b/l erythematous rash in upper thighs Problem List recent bacteremia, suspect contamination acute on Chronic Anemia, h/o GI Bleed / PUD RENATA, likely prerenal hypokalemia hypomagnesemia hypothyroidism, acquired chronic lymphedema Chronic afib 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 ID consulted - agrees likely contaminant, dc'd antibiotics echo done - diastolic dysfunction potassium and magnesium replacement protocol type and screen done in ED, +iron deficiency, h/o UGI bleed s/p 2u PRBCs on 04/20, hgb overall appears to be stable, initial drop, increase today may be partly hemoconcentration RENATA worsened, suspect prerenal/dehydration, with hypernatremia/hyperchloremia. Nephrology consulted. On D5. possibly contrast induced GI consulted given h/o GI bleed / PUD and anemia. s/p EGD with ulcerations and gastritis noted Patient with significant suprapubic pain on 04/23, she did have a recent Taylor removed. UA negative Given the severity of her discomfort/pain, CT abdomen/pelvis obtained: +stool burden. improved with bowel regimen sliding scale insulin and accuchecks PT consulted continue PPI BID, restart eliquis in a few days VTE: eliquis - held for EGD / bleed Code: full Dispo: anticipate dc home in ~1 day Time Spent Managing Pts Care (In Minutes): 35
--- NOTE | 2021-04-24 16:40 | P.PN ---
Subjective Date of Service: 04/24/21 Primary Care Provider: Esequiel Chief Complaint: weakness, hypokalemia Subjective: Improving Physical Examination - Vital Signs Temperature: 97.6 F Blood Pressure: 139/66 Pulse: 83 Respirations: 18 Pulse Ox (%): 98 - Physical Exam General: Alert, In no apparent distress, Oriented x3 HEENT: Atraumatic, Normocephalic, PERRLA, EOMI Neck: Supple Cardiovascular: Normal pulses Gastrointestinal: Soft and benign, No tenderness, No rebound, No guarding Neurological: Normal speech, Normal strength at 5/5 x4 extr - Studies Microbiology Data (last 24 hrs): 04/19/21 16:00 Blood - Blood Aerobic Blood Culture - Final No growth in 5 days. 04/19/21 16:00 Blood - Blood Anaerobic Blood Culture - Final No growth in 5 days. Assessment And Plan - Current Problems (Diagnosis) (1) Gastritis Current Visit: Yes Status: Acute (2) Gastric ulcer Current Visit: Yes Status: Acute (3) Epigastric abdominal pain Current Visit: Yes Status: Acute (4) Anemia Onset Date: 01/31/15 Current Visit: No Status: Chronic Qualifiers: Anemia type: other cause Other causes of anemia: chronic disease, other Qualified Code(s): D63.8 - Anemia in other chronic diseases classified elsewhere (5) Gastrointestinal hemorrhage Onset Date: 03/13/15 Current Visit: No Status: Resolved - Plan REC: 1) continue PPI bid on discharge 2) GI clinic f/u in 1-2 weeks Physician Review Additional Text: Physical Exam General: AAOx3, NAD HEENT: normal conjunctiva, sclera anicteric Respiratory: Clear to auscultation bilaterally, Normal air movement Cardiovascular: Regular rate/rhythm, Normal S1 S2 Gastrointestinal: soft, nondistended, +mild-mod epigastric tenderness to palpation, +mild suprapubic pain on palpation Musculoskeletal: No joint tenderness Integumentary: chronic lymphedema, b/l erythematous rash in upper thighs Problem List recent bacteremia, suspect contamination acute on Chronic Anemia, h/o GI Bleed / PUD RENATA, likely prerenal hypokalemia hypomagnesemia hypothyroidism, acquired chronic lymphedema Chronic afib 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 ID consulted - agrees likely contaminant, dc'd antibiotics echo done - diastolic dysfunction potassium and magnesium replacement protocol type and screen done in ED, +iron deficiency, h/o UGI bleed s/p 2u PRBCs on 04/20, hgb overall appears to be stable, initial drop, increase today may be partly hemoconcentration RENATA worsened, suspect prerenal/dehydration, with hypernatremia/hyperchloremia. Nephrology consulted. On D5. possibly contrast induced GI consulted given h/o GI bleed / PUD and anemia. s/p EGD with ulcerations and gastritis noted Patient with significant suprapubic pain on 04/23, she did have a recent Taylor removed. UA negative Given the severity of her discomfort/pain, CT abdomen/pelvis obtained: +stool burden. improved with bowel regimen sliding scale insulin and accuchecks PT consulted continue PPI BID, restart eliquis in a few days VTE: eliquis - held for EGD / bleed Code: full Dispo: anticipate dc home in ~1 day
[2021-04-24] MEDS: MORPHINE 2 MG/ML SYR IV PRN (20:38)
[2021-04-25] MEDS: MORPHINE 2 MG/ML SYR IV PRN (03:08)
[2021-04-25] MEDS: D5W 1,000 ML with POTASSIUM CL 20 MEQ IV SCH ×2 (05:24)
[2021-04-25 05:48] LABS: Hematocrit 29.5 % (36.0-45.0); MPV 8.2 fL (7.6-11.3); RBC Red Blood Cell Count 3.39 M/uL (3.86-4.86)
[2021-04-25 06:56] LABS: Albumin 2.1 g/dL (3.4-5.0); Magnesium 2.2 mg/dL (1.8-2.4); Potassium 4.5 mmol/L (3.5-5.1)
[2021-04-25] MEDS: INSULIN -REGULAR HUMAN 50 UNIT/0.5 ML ML SQ SCH ×4 (07:30→22:21)
[2021-04-25] MEDS: LEVOTHYROXINE SODIUM 175 MCG PO SCH (09:00)
[2021-04-25] MEDS: SOMATROPIN SQ SCH (09:41)
[2021-04-25] MEDS: TRAMADOL HCL 50 MG TAB PO PRN ×3 (09:42→23:01)
[2021-04-25] MEDS: clonazePAM 0.5 MG TAB PO PRN (09:42)
[2021-04-25] MEDS: HYDROCORTISONE 10 MG TAB PO SCH ×2 (09:42→16:44)
[2021-04-25] MEDS: SOTALOL HCL 160 MG PO SCH (09:43)
[2021-04-25] MEDS: DOCUSATE NA 100 MG CAP PO SCH ×2 (09:43→22:20)
[2021-04-25] MEDS: LOSARTAN POTASSIUM 100 MG PO SCH (09:43)
[2021-04-25] MEDS: ISOSORBIDE MONO SR 30 MG TAB PO SCH (09:43)
[2021-04-25] MEDS: PANTOPRAZOLE 40MG TABLET PO SCH ×2 (09:44→16:44)
[2021-04-25] MEDS: NYSTATIN 100MU/GM CREAM 15GM TOP SCH ×2 (09:44→22:20)
[2021-04-25] MEDS: ATORVASTATIN 20 MG TAB PO SCH (09:44)
[2021-04-25] MEDS: MIRTAZAPINE 15 MG TAB PO SCH (09:44)
--- NOTE | 2021-04-25 09:44 | RAD REPORT ---
EXAM DESCRIPTION: RAD - Abdomen 1 View (KUB) - 04/25/2021 9:28 am CLINICAL HISTORY: Abdomen pain. FINDINGS: The bowel gas pattern is unremarkable. Moderate to large amount of stool is present throughout colon. IVC filter in place. Cement has placed into several lumbar vertebral fractures
[2021-04-25] MEDS: AMLODIPINE 5 MG TAB PO SCH (10:02)
--- NOTE | 2021-04-25 15:24 | P.PN ---
Subjective Date of Service: 04/25/21 Primary Care Provider: Esequiel Chief Complaint: weakness, hypokalemia Subjctive Pt with lymphedema and HTN , admitted for weakness, have Staph Aureus bacteremia On 04/22 cr 0.5, increased to 1.1 on 04/23 , pt received IV contrast on 04/23 Today No new complains Cr 1.3 now will dc IVF Physical exam general: AAOX3, NAD , obese Neck; Supple, No elevated JVD chest CTAB, no rlaes or wheezes hear: RRR, normal S1,2 no murmur or rub Chest: CTAB, no rales or wheezes Abdomen: Soft , Nt Extremities +1 edema Acute kidney injury Possibly due to ATN and aggravated with Contrast associated Nephropathy FeNA >1% will hold IVF renal DOSE meds avoid NSAID will reduce losartan Hypenatremia resolved will dc IVF HTN Bp controlled Lymphedema will hold on IVF and diuretics cont Amlodipine for now HTN will reduce losartan Acute anemia S/P EGD Gi following Total time spent 35 min Physical Examination - Vital Signs Temperature: 97.5 F Blood Pressure: 141/68 Pulse: 67 Respirations: 18 Pulse Ox (%): 98 - Studies Microbiology Data (last 24 hrs): 04/19/21 16:25 Blood - Blood Aerobic Blood Culture - Final No growth in 5 days. 04/19/21 16:25 Blood - Blood Anaerobic Blood Culture - Final No growth in 5 days. 04/19/21 16:00 Blood - Blood Aerobic Blood Culture - Final No growth in 5 days. 04/19/21 16:00 Blood - Blood Anaerobic Blood Culture - Final No growth in 5 days.
--- NOTE | 2021-04-25 15:47 | P.PN ---
Subjective Date of Service: 04/25/21 Primary Care Provider: Esequiel Chief Complaint: weakness, hypokalemia Subjective: Improving (pain improved, no nausea/vomiting, feeling better, urinating without issue, had a few BMs) Review of Systems 10-point ROS is otherwise unremarkable Physical Examination - Vital Signs Temperature: 97.5 F Blood Pressure: 141/68 Pulse: 67 Respirations: 18 Pulse Ox (%): 98 - Studies Microbiology Data (last 24 hrs): 04/19/21 16:25 Blood - Blood Aerobic Blood Culture - Final No growth in 5 days. 04/19/21 16:25 Blood - Blood Anaerobic Blood Culture - Final No growth in 5 days. 04/19/21 16:00 Blood - Blood Aerobic Blood Culture - Final No growth in 5 days. 04/19/21 16:00 Blood - Blood Anaerobic Blood Culture - Final No growth in 5 days. Assessment & Plan Physician Review Additional Text: Physical Exam General: AAOx3, NAD HEENT: normal conjunctiva, sclera anicteric Respiratory: Clear to auscultation bilaterally, Normal air movement Cardiovascular: Regular rate/rhythm, Normal S1 S2 Gastrointestinal: soft, nondistended, +mild epigastric tenderness to palpation Integumentary: chronic lymphedema, b/l erythematous rash in upper thighs Problem List recent bacteremia, suspect contamination acute on Chronic Anemia, h/o GI Bleed / PUD RENATA, likely prerenal hypokalemia hypomagnesemia hypothyroidism, acquired chronic lymphedema Chronic afib 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 ID consulted - agrees likely contaminant, dc'd antibiotics echo done - diastolic dysfunction potassium and magnesium replacement protocol type and screen done in ED, +iron deficiency, h/o UGI bleed s/p 2u PRBCs on 04/20, hgb overall appears to be stable, initial drop, increase today may be partly hemoconcentration RENATA worsened, suspect prerenal/dehydration, with hypernatremia/hyperchloremia. Nephrology consulted. On D5. possibly contrast induced GI consulted given h/o GI bleed / PUD and anemia. s/p EGD with ulcerations and gastritis noted Patient with significant suprapubic pain on 04/23, she did have a recent Taylor removed. UA negative Given the severity of her discomfort/pain, CT abdomen/pelvis obtained: +stool burden. improved with bowel regimen sliding scale insulin and accuchecks PT consulted continue PPI BID, restart eliquis in a few days VTE: eliquis - held for EGD / bleed Code: full Dispo: anticipate dc home in ~1 day pending stability of renal function and hgb tomorrow Time Spent Managing Pts Care (In Minutes): 35
[2021-04-26 05:48] LABS: Hematocrit 29.7 % (36.0-45.0); MPV 8.1 fL (7.6-11.3)
[2021-04-26 05:57] LABS: Albumin 2.1 g/dL (3.4-5.0); Phosphorus 3.2 mg/dL (2.5-4.9); Potassium 3.8 mmol/L (3.5-5.1)
[2021-04-26] MEDS: INSULIN -REGULAR HUMAN 50 UNIT/0.5 ML ML SQ SCH ×3 (07:30→16:30)
[2021-04-26] MEDS: clonazePAM 0.5 MG TAB PO PRN (07:42)
[2021-04-26] MEDS ORDERED: POTASSIUM CL SA 10 MEQ TAB PO ONE (09:00)
[2021-04-26] MEDS: LEVOTHYROXINE SODIUM 175 MCG PO SCH (09:00)
[2021-04-26] MEDS: ISOSORBIDE MONO SR 30 MG TAB PO SCH (10:34)
[2021-04-26] MEDS: ATORVASTATIN 20 MG TAB PO SCH (10:34)
[2021-04-26] MEDS: AMLODIPINE 5 MG TAB PO SCH (10:34)
[2021-04-26] MEDS: HYDROCORTISONE 10 MG TAB PO SCH ×2 (10:35→17:20)
[2021-04-26] MEDS: DOCUSATE NA 100 MG CAP PO SCH (10:35)
[2021-04-26] MEDS: PANTOPRAZOLE 40MG TABLET PO SCH ×2 (10:35→17:20)
[2021-04-26] MEDS: MIRTAZAPINE 15 MG TAB PO SCH (10:36)
[2021-04-26] MEDS: NYSTATIN 100MU/GM CREAM 15GM TOP SCH (10:36)
[2021-04-26] MEDS: SOTALOL HCL 160 MG PO SCH (10:37)
[2021-04-26] MEDS: SOMATROPIN SQ SCH (10:38)
--- NOTE | 2021-04-26 11:50 | P.PN ---
Subjective Date of Service: 04/26/21 Primary Care Provider: Esequiel Chief Complaint: weakness, hypokalemia Subjctive Pt with lymphedema and HTN , admitted for weakness, have Staph Aureus bacteremia On 04/22 cr 0.5, increased to 1.1 on 04/23 , pt received IV contrast on 04/23 Today Cr down to baseline Bp elevated, will stop amlodipine and start Nifedipine Physical exam general: AAOX3, NAD , obese Neck; Supple, No elevated JVD chest CTAB, no rlaes or wheezes hear: RRR, normal S1,2 no murmur or rub Chest: CTAB, no rales or wheezes Abdomen: Soft , Nt Extremities +1 edema Acute kidney injury Possibly due to ATN and aggravated with Contrast associated Nephropathy FeNA >1% off IVF renal DOSE meds avoid NSAID cont losartan Hypenatremia resolved HTN Bp controlled Lymphedema will hold on IVF and diuretics cont Amlodipine for now HTN losartan reduced Bp elevated, will stop amlodipine and start Nifedipine Acute anemia S/P EGD Gi following Total time spent 35 min Physical Examination - Vital Signs Temperature: 97.3 F Blood Pressure: 195/89 Pulse: 65 Respirations: 16 Pulse Ox (%): 99
[2021-04-26] MEDS ORDERED: NIFEDIPINE XL 60 MG TABLET PO SCH (12:00)
--- NOTE | 2021-04-26 12:52 | P.PN ---
Subjective Date of Service: 04/29/21 Primary Care Provider: Esequiel Chief Complaint: weakness, hypokalemia, ARF Subjective: Improving (Cr now normal today at 0.99. Had ATN with elevated Cr, keeping her in hospital. Wants to go home.) Review of Systems 10-point ROS is otherwise unremarkable General: Weakness (Improved.) Physical Examination - Vital Signs Temperature: 97.0 F Blood Pressure: 172/77 Pulse: 65 Respirations: 16 Pulse Ox (%): 98 - Physical Exam General: Alert, In no apparent distress, Oriented x3, Cooperative HEENT: Atraumatic, Normocephalic, PERRLA, EOMI Neck: Supple Respiratory: Normal air movement Cardiovascular: Normal pulses Gastrointestinal: Soft and benign, No ascites, No tenderness, No masses Neurological: Normal speech, Normal strength at 5/5 x4 extr Assessment And Plan - Current Problems (Diagnosis) (1) Gastritis Status: Acute (2) Gastric ulcer Status: Acute (3) Epigastric abdominal pain Status: Acute (4) Anemia Onset Date: 01/31/15 Status: Chronic Qualifiers: Anemia type: other cause Other causes of anemia: chronic disease, other Qualified Code(s): D63.8 - Anemia in other chronic diseases classified elsewhere (5) Gastrointestinal hemorrhage Onset Date: 03/13/15 Status: Resolved (6) Acute renal insufficiency Status: Acute Comment: Improved. s/p IV contrast with CT scan & diurectic therapy for CHF - Plan REC: 1) continue PPI bid on discharge 2) GI clinic f/u in 1-2 weeks Physician Review Additional Text: Physical Exam General: AAOx3, NAD HEENT: normal conjunctiva, sclera anicteric Respiratory: Clear to auscultation bilaterally, Normal air movement Cardiovascular: Regular rate/rhythm, Normal S1 S2 Gastrointestinal: soft, nondistended, +mild epigastric tenderness to palpation Integumentary: chronic lymphedema, b/l erythematous rash in upper thighs Problem List recent bacteremia, suspect contamination acute on Chronic Anemia, h/o GI Bleed / PUD RENATA, likely prerenal hypokalemia hypomagnesemia hypothyroidism, acquired chronic lymphedema Chronic afib 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 ID consulted - agrees likely contaminant, dc'd antibiotics echo done - diastolic dysfunction potassium and magnesium replacement protocol type and screen done in ED, +iron deficiency, h/o UGI bleed s/p 2u PRBCs on 04/20, hgb overall appears to be stable, initial drop, increase today may be partly hemoconcentration RENATA worsened, suspect prerenal/dehydration, with hypernatremia/hyperchloremia. Nephrology consulted. On D5. possibly contrast induced GI consulted given h/o GI bleed / PUD and anemia. s/p EGD with ulcerations and gastritis noted Patient with significant suprapubic pain on 04/23, she did have a recent Taylor removed. UA negative Given the severity of her discomfort/pain, CT abdomen/pelvis obtained: +stool burden. improved with bowel regimen sliding scale insulin and accuchecks PT consulted continue PPI BID, restart eliquis in a few days VTE: eliquis - held for EGD / bleed Code: full Dispo: anticipate dc home in ~1 day pending stability of renal function and hgb tomorrow
[2021-04-26 17:20] VITALS: O2SAT 98
--- NOTE | 2021-04-26 20:49 | P.DS ---
Admission Date: 04/20/21 Discharge Date: 04/26/21 Primary Care Provider: Esequiel Disposition: ROUTINE DISCHARGE Discharge Condition: GOOD Reason for Admission: weakness, hypokalemia, ARF, anemia Consultations: GI - Dr. Garcia Nephrology - Dr. Gillis / Mahesh / [place] Procedures: CXR (04/19): No evidence of edema or pneumonia. Mild cardiomegaly.No acute osseous a bnormality. No significant pleural effusions or pneumothorax. IMPRESSION: No acute cardiopulmonary disease. CT head (04/19): No intracranial hemorrhage, hydrocephalus or extra-axial fluid collection.No areas of brain edema or evidence of midline shift. Calcified dural-based right frontal extra-axial lesion consistent a meningioma that is unchanged. There is ethmoid air cell and sphenoid sinus opacification. Age advanced cerebral atrophy. The paranasal sinuses and mastoids are clear. The calvarium is intact. IMPRESSION: No acute intracranial abnormality. CT Abd/Pelvis (04/19): FINDINGS: The lung bases are clear. Low-density liver lesions are likely benign. Gallbladder is unremarkable. Adrenal glands unremarkable. No stones or hydronephrosis. The pancreas is unremarkable. Miniscule splenic lesions which are likely cysts. Subcentimeter left renal lesion which is statistically benign. No hydronephrosis. Diverticulosis without diverticulitis. Taylor catheter within the bladder. Hysterectomy. No bowel obstruction. No acute fractures identified. Kyphoplasty changes are noted at L3-L4. Advanced degenerative changes are present in the lumbar spine. IMPRESSION: No acute intra-abdominal or pelvic finding. Incidental findings as noted above. CT Abd/Pelvis (04/23): FINDINGS: The evaluation of solid organs, vessels and bowel is limited secondary to the lack of contrast administration. Small hepatic cysts. Spleen, pancreas, adrenals and kidneys appear grossly normal. The rectum is mildly distended with stool. Moderate amount stool within the colon. Spondylosis of lumbar spine results in marked spinal stenosis. IVC filter in place. Cement has been placed into several old lumbar vertebral body fractures IMPRESSION: Rectum is mildly distended with stool. Moderate amount stool throughout colon. EGD (04/23): 1. Mild nodular mucosa in the body of the stomach, s/p biopsies 2. Severe gastritis in the antrum, s/p biopsies 3. Multiple ulcers in the fundus 4. Multiple (3) 2-3mm clean-based ulcers in the antrum KUB x-ray (04/25): FINDINGS: The bowel gas pattern is unremarkable. Moderate to large amount of stool is present throughout colon. IVC filter in place. Cement has placed into several lumbar vertebral fractures Echo (04/20): normal LVEF 60-65%. normal wall motion. moderate diastolic dysfunction. Problem List recent bacteremia, suspect contamination acute on Chronic Anemia, h/o GI Bleed / PUD RENATA, secondary to prerenal/ATN, contrast-induced hypokalemia, hypomagnesemia chronic hypothyroidism, acquired chronic lymphedema Chronic afib on chronic anticoagulation h/o DVTs s/p IVC filter DM2, non-insulin dependent HLD HTN Brief History of Present Illness: 80 yo F with DM, CKD, hypothyroidism ,h/o CVA, CHF, HLD, afib, HTN, h/o blood clots and lymphedema who is here today for 2 days of increased weakness and fatigue. She says she has had no appetite but is able to drink fluids. She reports polyuria. Denies systemic symptoms. She says this has happened several times in the past. She says for the past 4 months she has been in and out of the hospital, most recently for a bleeding ulcer which require an 8 unit blood transfusion. H/H 8.1. Na 148, K 2.5, Cl 111. BUN 24, GFR 67. Glu 167. Lactate 4.2. Ca 7.6, Mg 1.6. AST 68. BNP 754. Protein 5.9. Alb 2.9. UA clear. Blood cultures from 04/09/2021 positive for staph aureus, repeat blood cultures drawn in the ED. Given fluids, potassium, magnesium, vancomycin and cefepime in the ED. Head CT, CXR, and CT A/P without acute findings. Hospital Course: Patient was empirically covered with antibiotics. ID was consulted, agreed that bacteremia noted over a week prior was secondary to contamination. Patient never received antibiotic treatment and blood cultures obtained on this admission were negative. Hgb was 8.1 on admission and down to 6.8 the following morning. Patient was transfused 2units PRBCs. GI was consulted and patient underwent EGD revealing multiple ulcerations and severe gastritis. Patient's eliquis was held during the hospitalization and recommended to restart ~5 days after EGD. A long discussion was had with the patient and her regarding risk of DVT / Stroke with her h/o DVTs and afib vs risk of bleeding with her ulcers / gastritis. They stated they wanted to continue with anticoagulation as recommended by her doctor. She does have an IVC filter in place. She was also noted to have an RENATA, felt secondary to dehydration and contrast nephropathy. This improved with gentle IV hydration. During her hospitalization she also reported lower abdominal pain. She was found to have a large stool burden and her symptoms improved/resolved after initiation of a bowel regimen and having multiple bowel movements. Dc'd home with pantoprazole BID, stool softener. Follow up with GI in ~2 weeks. Vital Signs/Physical Exam: Physical Exam General: AAOx3, NAD HEENT: normal conjunctiva, sclera anicteric Respiratory: Clear to auscultation bilaterally, Normal air movement Cardiovascular: Regular rate/rhythm, Normal S1 S2 Gastrointestinal: soft, nondistended, +mild epigastric tenderness to palpation Integumentary: chronic lymphedema, no rash Temp Pulse Resp BP Pulse Ox 97.9 F 64 16 154/72 H 99 04/26/21 16:00 04/26/21 16:00 04/26/21 16:00 04/26/21 16:00 04/26/21 16:00 Laboratory Data at Discharge: WBC 5.70 K/uL (4.3-10.9) 04/26/21 05:25 Hgb 9.7 g/dL (12.0-15.0) L 04/26/21 05:25 Hct 29.7 % (36.0-45.0) L 04/26/21 05:25 Plt Count 117 K/uL (152-406) L 04/26/21 05:25 PT 17.7 SECONDS (9.5-12.5) H 04/19/21 16:00 INR 1.53 04/19/21 16:00 Sodium 142 mmol/L (136-145) 04/26/21 05:14 Potassium 3.8 mmol/L (3.5-5.1) 04/26/21 05:14 BUN 21 mg/dL (7-18) H 04/26/21 05:14 Creatinine 0.99 mg/dL (0.55-1.3) 04/26/21 05:14 Glucose 137 mg/dL (74-106) H 04/26/21 05:14 Uric Acid 6.0 mg/dL (2.6-6.0) 04/24/21 05:31 Phosphorus 3.2 mg/dL (2.5-4.9) 04/26/21 05:14 Magnesium 2.0 mg/dL (1.8-2.4) 04/26/21 05:14 Total Bilirubin 0.9 mg/dL (0.2-1.0) 04/23/21 06:10 AST 32 U/L (15-37) 04/23/21 06:10 ALT 25 U/L (12-78) 04/23/21 06:10 Alkaline Phosphatase 56 U/L (45-117) 04/23/21 06:10 Triglycerides 150 mg/dL (<150) 04/20/21 02:33 Cholesterol 103 mg/dL (<200) 04/20/21 02:33 HDL Cholesterol 58 mg/dL (40-60) 04/20/21 02:33 Cholesterol/HDL Ratio 1.78 04/20/21 02:33 Home Medications: Amlodipine [Norvasc*] 1 tab PO DAILY 07/30/20 Losartan Potassium [Cozaar] 100 mg PO DAILY 07/30/20 Sotalol HCl [Sotalol] 160 mg PO DAILY 07/30/20 Hydrocortisone [Cortef*] 30 mg PO BIDWM 03/04/21 Levothyroxine Sodium [Levothyroxine] 112 mcg PO DAILY 03/04/21 Tramadol HCl [Ultram] 1 tab PO DAILYPRN PRN 03/04/21 Apixaban [Eliquis *] 2.5 mg PO BID 04/20/21 Isosorbide Mononitrate [Isosorbide Mononitrate ER] 30 mg PO DAILY 04/20/21 Mirtazapine 15 mg PO DAILY 04/20/21 Simvastatin 40 mg PO DAILY 04/20/21 Somatropin [Humatrope] 0.2 mg SQ DAILY 04/20/21 clonazePAM [Clonazepam] 0.5 mg PO BID PRN 04/20/21 Docusate [Colace Cap*] 100 mg PO DAILY 30 Days #30 cap 04/26/21 Pantoprazole [Protonix Tab*] 40 mg PO BIDAC 30 Days #60 tab 08/22/21 New Medications: Docusate [Colace Cap*] 100 mg PO DAILY 30 Days #30 cap Pantoprazole [Protonix Tab*] 40 mg PO BIDAC 30 Days #60 tab Diet: ADA Activity: Fall precautions Followup: Mitra Gillis MD [ACTIVE - CAN ADMIT] - Vinnie Garcia MD [ASSOCIATE-ACTIVE - CAN ADMIT] - Dany Iraheta MD [Primary Care Provider] - Time spent managing pt's care (in minutes): 45
--- NOTE | 2021-04-27 12:16 | CON ---
Date of Consultation: 04/23/2021 Reason For Consultation: Anemia with upper gastrointestinal bleeding, midepigastric pain, hemoglobin 6.8. History Of Present Illness: The patient is an 80-year-old female with history of peptic ulc er disease and bleed recently at [facility], diabetes, hypertension, diastolic congestive heart failure, at ria fibrillation, hyperlipidemia, stroke, chronic kidney disease, and hypothyroidism. The patient p resented to the hospital with weakness and fatigue. The patient had been at [facility] approxim tel 1 to 2 weeks ago where EGD was performed due to 8 unit bleed. The patient required 8 units of p acked RBCs while there. EGD revealed peptic ulcer disease causing her bleeding. The patient was dis charged home. It appears by her 's report that she was not given any acid suppression medicat ion such as Prilosec or Protonix. The patient now reports some midepigastric discomfort. Otherwise, she is doing well. She denies any melena, hematochezia, emesis, coffee-grounds emesis, hematuria, d ysuria, polydipsia, hemoptysis, or epistaxis with no bleeding noted by her since in hospital. Past Medical History: Significant for: 1.Peptic ulcer disease with 8 packed RBC unit bleed at [facility] approximately 1 to 2 weeks ago . 2.Diabetes. 3.Hypertension. 4.Hyperlipidemia. 5.Diastolic congestive heart failure. 6.Atrial fibrillation. 7.Hyperlipidemia. 8.Stroke. 9.Chronic kidney disease. 10.Hypothyroidism. 11.Blood clots/DVTs. 12.Lymphedema. 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 Medications: At home include Norvasc, vitamin D, glipizide, Cytomel, Cozaar, sotalol, Lipitor, TriCo r, levothyroxine, and Ultram. Allergies: TO CIPRO, XARELTO, AND ZOSYN. Social History: She is . Five children, one of suicide by gunshot that appears. No tob acco. No alcohol. Lives with at home. Family History: Mother and father of coronary artery disease/myocardial infarctions that appear s. Review of Systems: The patient has midepigastric discomfort, anemia, history of peptic ulcer disease. At [facility] with 8 unit bleed there. She has received 2 units in the hospital. She denies any melena, hematoch ezia, coffee-grounds emesis, hematuria, dysuria, polydipsia, muscle aches, joint aches, backaches, sh ortness of breath, seizure, syncope, lower extremity muscle aches, joint aches, backaches, depression , or anxiety. Physical Examination: Vital Signs: The patient is 5 feet 4 and 158 pounds. BMI of 27 kg/m2. Temperature 97 degrees Fahre nheit, pulse 83, respirations 16, blood pressure 133/52, and O2 saturation 100%. General: She is a slightly obese female, lying in bed, in no acute distress. HEENT: Normocephalic, atraumatic. Anicteric. Pupils equal, round, and reactive to light. Extraocu lar movements are intact. Oropharynx clear. Neck: Supple. No masses. Respirations: Clear to auscultation bilaterally. Cardiac: Regular rate and rhythm. No gallops. Gastrointestinal: Positive bowel sounds. Soft, nondistended, obese. Midepigastric tenderness to mi ld pain. Extremities: No clubbing, cyanosis. Some trace lower extremity edema. Neuro: Alert and oriented x3. Grossly nonfocal. 5/5 motor sensation to light touch. Laboratory Data: The patient has a white count of 5.0, hemoglobin of 12.3 up from 6.8 on April 20 , hematocrit today of 38, MCV of 88, platelet count of 132, polys of 84% , monocytes 6%. P T of 17.7, INR of 1.53. The patient has a sodium 150, potassium 3.4, chloride 121, bicarb 23, BUN of 19, creatinine of 1.12, glucose 130, and calcium is 7.9. Total bilirubin 0.9, AST of 32, ALT of 25, alkaline phosphatase 56, total protein 5.6, albumin 2.4. PTH of 141.3. Cortisol of 1.22. UA was n egative. Toxicology, influenza A and COVID-19 nasal swab tests were negative. CT abdomen and pelvis done on an April 19 and reviewed on April 23 were negative. Impression: 1.Midepigastric pain probably due to peptic ulcer disease. 2.Gastrointestinal bleed with anemia. Hemoglobin down to 6.8 after 2 units of packed RBCs _ of note, esophagogastroduodenoscopy approximately [address] [facility] revealed peptic ulc er disease, which required 8 units of packed RBCs while there at that hospital. 3.Coagulopathy. PT of 17.7, INR of 1.53, may not restart this and the patient with try t o correct it. We will monitor and see if she improves on therapy here in hospital and after her Eliq uis wears off as an outpatient. 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 Recommendations: 1.EGD. 2.Serial H and H and transfuse p.r.n. 3.PPI therapy. 4.Continue IV fluids. ANGÉLICA/AZIZA Voice ID: [id number] Report ID: [id number]
[2021-04-29 09:59] VITALS: BP 172/77; TEMP 97
== END 2021-04-26 18:26 | disposition home or self-care (01) | DRG 377 ==
LOC: ER 13:42 → ERHOLD 19:10 → OBSVTOIN 04-20 08:02 → 2ND 04-20 17:01
PROVIDERS: ADMIT Internal Medicine; ATTEND Internal Medicine
PROC: 30233N1 Transfusion of Nonautologous Red Blood Cells into Peripheral Vein, Percutaneous Approach (ICD-10-PCS; 2021-04-20)
PROC: 0DB68ZX Excision of Stomach, Via Natural or Artificial Opening Endoscopic, Diagnostic (ICD-10-PCS; principal; 2021-04-23 11:00)
DX: K25.4 Chronic or unspecified gastric ulcer with hemorrhage (principal); N17.0 Acute kidney failure with tubular necrosis; I48.20 Chronic atrial fibrillation, unspecified; I13.0 Hypertensive heart and chronic kidney disease with heart failure and stage 1 through stage 4 chronic kidney disease, or unspecified chronic kidney disease; I50.32 Chronic diastolic (congestive) heart failure; D50.9 Iron deficiency anemia, unspecified; T50.8X1A Poisoning by diagnostic agents, accidental (unintentional), initial encounter; N14.4 Toxic nephropathy, not elsewhere classified; E87.6 Hypokalemia; K31.89 Other diseases of stomach and duodenum; E83.42 Hypomagnesemia; I89.0 Lymphedema, not elsewhere classified; K59.00 Constipation, unspecified; E11.22 Type 2 diabetes mellitus with diabetic chronic kidney disease; E78.5 Hyperlipidemia, unspecified; E03.9 Hypothyroidism, unspecified; E86.0 Dehydration; K29.71 Gastritis, unspecified, with bleeding; N18.2 Chronic kidney disease, stage 2 (mild); Z86.718 Personal history of other venous thrombosis and embolism; Z79.01 Long term (current) use of anticoagulants; Z86.73 Personal history of transient ischemic attack (TIA), and cerebral infarction without residual deficits; Z20.822 Contact with and (suspected) exposure to COVID-19
CPT/HCPCS: 0240U; 36415; 51702; 70450; 71045; 74018; 74176; 74177; 80048; 80053; 80061; 80069; 80076; 80202; 81003; 81015; 82274; 82306; 82533; 82607; 82652; 82728; 82746; 82947; 83540; 83605; 83735; 83880; 83970; 84100; 84132; 84145; 84300; 84439; 84443; 84466; 84484; 84550; 85014; 85018; 85025; 85027; 85610; 86850; 86900; 86901; 87040; 88305; 88312; 93005; 93306; 94760; 96365; 96366; 96367; 96375; 97116; 97161; 97530; 99285; C9113; G0378; J0171; J0610; J0692; J2270; J2370; J2405; J2704; J3370; J3475; J3480; J7030; J7050; P9016; Q9967

== ENCOUNTER 2021-04-28 11:52 | Emergency (ER) | payer OTHER ==
--- OUTSIDE RECORDS SUMMARY | 2021-04-28 11:56 | XMS REPORT | Continuity of Care Document ---
:1940 Author Organization [facility] t Address [address] [place] [address] Care Team Providers Name Role Phone Juanpablo Iraheta MD Primary Care Physician Juanpablo Iraheta Attending Clinician [phone] Doctor Unassigned, Name Attending Clinician Unavailable Harrison [...] Clinician Unavailable ARLENE SANDOVAL Admitting Clinician Unavailable Payers Payer Name Policy Type Policy Effective Date Expiration Date Sour ce Number MEDICAREMEDICARE A [id number] [address] [facility] [id number] 2002- 00:00:00 - Medical PresentMedicare Center AETNA - MGD CAREAETNA [id number] 2013 [facility] INDEMNITY NON 00:00:00 - Medical [id number] Ce nter 4-PresentComm Problems Condition Condition Condition Status Onset Resolution Last Treating Co mments Source Name Details Category Date Date Treatment Clinician Date Pancreatit Pancreatit Disease Active [facility] - 00:[facility]: Medical 00 [place] Sepsis Sepsis Disease Active [facility] Medical 00 [place] Paroxysmal Paroxysmal Disease Active [facility] A-fib A-fib 01-14 [facility] - 00:[facility]: Medical 00 Center Allergies, Adverse Reactions, Alerts Allergy Allergy Status Severity Reaction(s) Onset Inactive Treating Comm ents Source Name Type Date Date Clinician Jani Propensi Active Itching [facility] S t xacin ty to 01-14 [facility] - adverse 00:00: Medical reaction 00 Center s [place] Drug Active Other (See Internal [facility] ban Intolera Comments) 01-14 bleeding Mindy es - nce 00:00: Medical 00 [place] Family History Family Member Diagnosis Comments Start Date Stop Date Source Natural father Heart disease [facility] Natural mother Heart disease [facility] Social History Social Habit Start Date Stop Date Quantity Comments Source Sex Assigned At [facility] Tobacco use and 2018-11-09 2018-11-09 Never used [facility] exposure 00:00:00 00:00:00 Medical [place] Alcohol intake 2018-11-09 2018-11-09 [facility] - 00:[facility]:00 00:00:00 non-drinker of Medical Ce nter alcohol (finding) Smoking Status Start Date Stop Date Source Never smoker [facility] edical [place] Medications Ordered Filled Start Stop Current Ordering Indication Dosage Frequency Signature Comments Components Source Medication Medication Date Date Medication? Clinician (SIG) Name Name cholecalcif Yes [id number] Take [facility] ghada, 11-09 50,000 [facility] - vitamin D3, 12:12: Units by Me dical 50,000 unit 28 mouth once Ce nter Tab every 2 weeks. hydrocortis 2019-0 Yes 10mg Q.5D Take [address] [facility] one 3-07 by mouth 2 [facility] - (CORTEF) 20 12:12: (two) Medic al MG tablet 28 times Center daily . fenofibrate 2019-0 Yes 48mg QD Take [address] (TRICOR) 48 3-07 by mouth Luke s - MG tablet 12:12: daily. Medica l 28 Center omeprazole 2019-0 Yes 40mg QD Take [address] (PRILOSEC) 3-07 by mouth [facility] - 40 MG 12:12: daily. Medical capsule 28 Center potassium 2019-0 Yes 10meq QD Take [address] [address] chloride 3-07 mEq by [facility] - (KLOR-CON) 12:12: mouth Medica l 10 MEQ CR 28 daily. Center tablet LORazepam 2019- Yes .5mg Take 0.[address] (ATIVAN) 3-07 mg by [facility] - 0.5 MG 12:12: mouth as Medical tablet 28 needed for Center Anxiety. somatropin Yes Inject [facility] 5 mg/1.5 mL 3-07 subcutaneo Domitila kes - (3.3 mg/mL) 12:12: usly. Medic al PnIj 28 Center cholecalcif 0 Yes [id number] Take [facility] ghada, 3-07 50,000 [facility] - vitamin D3, 12:12: Units by Me dical 50,000 unit 28 mouth once Ce nter Tab every 2 weeks. hydrocortis 2019-0 Yes 10mg Q.5D Take [address] [facility] one 3-07 by mouth 2 [facility] - (CORTEF) 20 12:12: (two) Medic al MG tablet 28 times Center daily . fenofibrate 2019-0 Yes 48mg QD Take [address] (TRICOR) 48 3-07 by mouth Luke s - MG tablet 12:12: daily. Medica l 28 Center omeprazole 2019-0 Yes 40mg QD Take [address] (PRILOSEC) 3-07 by mouth [facility] - 40 MG 12:12: daily. Medical capsule 28 Center potassium 2019-0 Yes 10meq QD Take [address] [...] MG tablet 12:12: daily. Medica l 27 [place] losartan Yes 100mg QD Take [address] (COZAAR) 3-07 mg by [facility] - 100 MG 12:12: mouth Medical tablet 27 daily. Center methscopola Yes 5mg QD Take [address] mine 3-07 by mouth [facility] - (PAMINE 12:12: nightly. Medica l FORTE) 5 MG 27 Center tablet levothyroxi Yes hypothyroid 125ug Take [address] ne 3-07 ism mcg by [facility] - (SYNTHROID, 12:12: mouth Medic al LEVOTHROID) 27 Every Center 125 MCG morning on tablet an empty stomach. amLODIPine Yes 5mg QD Take [address] (NORVASC) 5 3-07 by mouth Luke s - MG tablet 12:12: daily. Medica l 27 Center losartan Yes 100mg QD Take [address] (COZAAR) 3-07 mg by [facility] - 100 MG 12:12: mouth Medical tablet 27 daily. Center methscopola 20190 Yes 5mg QD Take [address] mine 3-07 by mouth [facility] - (PAMINE 12:12: nightly. Medica l FORTE) 5 MG 27 Center tablet glipiZIDE Yes 5mg QD Take [address] (GLUCOTROL 5-16 tablets (5 Mindy es - XL) 2.5 MG 00:00: mg total) Me dical 24 hr 00 by mouth Center tablet daily. glipiZIDE 2018-0 Yes 5mg QD Take [address] (GLUCOTROL 5-16 tablets (5 Mindy es - XL) 2.5 MG 00:00: mg total) Me dical 24 hr 00 by mouth Center tablet daily. warfarin 2018-0 Yes 2.5mg QD Take 2.[address] (COUMADIN) 4-25 mg by [facility]ukes - 2.5 MG 00:00: mouth Medical tablet 00 daily . Center warfarin 2018-0 Yes 2.5mg QD Take 2.[address] (COUMADIN) 4-25 mg by [facility]ukes - 2.5 MG 00:00: mouth Medical tablet 00 daily . Center gabapentin 2018-0 Yes 600mg Q.[id number] Take [address] (NEURONTIN) 4-16 [id number] mg by L ukes - 600 MG 00:00: 3D mouth 3 Medical tablet 00 (three) Center times daily . gabapentin 2018-0 Yes 600mg Q.[id number] Take [address] (NEURONTIN) 4-16 [id number] mg by L ukes - 600 MG 00:00: 3D mouth 3 Medical tablet 00 (three) Center times daily . liothyronin 2018-0 Yes 5ug QD Take [address] [facility] e (CYTOMEL) 3-21 by mouth Luke s - 5 MCG 00:00: daily . Medical tablet 00 Center liothyronin 2018-0 Yes 5ug QD Take [address] e (CYTOMEL) 3-21 by mouth Luke s - 5 MCG 00:00: daily . Medical tablet 00 Center Procedures This patient has no known procedures. Plan of Care Planned Activity Planned Date Details Comments Source Future Scheduled 2021-05-06 INFLUENZA VACCINE (#1) [facility] - Test 00:00:00 [code = INFLUENZA Medical Ce nter VACCINE (#1)] Future Scheduled 2020-09-[address] [facility] - Test 00:00:00 (12+) [code = Medical Center DEPRESSION SCREENING (12+)] Future Scheduled 2020-09-05 FALLS RISK SCREENING [facility] - Test 00:00:00 [code = FALLS RISK Medical C enter SCREENING] Future Scheduled 2020-05-06 INFLUENZA VACCINE (#1) [facility] - Test 00:00:00 [code = INFLUENZA Medical Ce nter VACCINE (#1)] Future Scheduled 2004-07-[address] [facility] - Test 00:00:00 WELLNESS (YEAR 2 or Medical Center FIRST YEAR if no IPPE) [code = MEDICARE ANNUAL WELLNESS (YEAR 2 or FIRST YEAR if no IPPE)] Future Scheduled 2004-07-[address] [facility] - Test 00:00:00 WELLNESS (YEAR 2 or Medical Center FIRST YEAR if no IPPE) [code = MEDICARE ANNUAL WELLNESS (YEAR 2 or FIRST YEAR if no IPPE)] Future Scheduled 2003 PNEUMOCOCCAL 65+ YRS [facility] - Test 00:00:00 (1 of 1 - Medical Center [id number] PCV13) [code = PNEUMOCOCCAL 65+ YRS (1 of 1 - [id number] PCV13)] Future Scheduled 2003 PNEUMOCOCCAL 65+ Y[facility] - Test 00:00:00 (1 of 1 - Medical Center [id number] PCV13) [code = PNEUMOCOCCAL 65+ YRS (1 of 1 - [id number] PCV13)] Future Scheduled 1988 SHINGLES VACCINES ([address] [facility] - Test 00:00:00 of 2) [code = SHINGLES Medic al Center VACCINES (1 of 2)] Future Scheduled 1957 DTAP/TDAP/TD VACCINES [facility] - Test 00:00:00 (1 - Tdap) [code = Medical C enter DTAP/TDAP/TD VACCINES (1 - Tdap)] Future Scheduled 1950 COVID-19 VACCINE (1) [facility] - Test 00:00:00 [code = COVID-[address] VACCINE (1)] Encounters Start End Encounter Admission Attending Care Care Encounter Source Date/Time Date/Time Type Type Clinicians Facility Department ID 2021-04-13 2021-04-13 Outpatient [facility] [id number] 00:00:00 00:00:00 Dany [id number] Juanpablo [id number] 2021-04-06 2021-04-06 Outpatient [facility] [id number] 00:00:00 00:00:00 Dany [id number] Juanpablo [id number] 2021-03-24 2021-03-24 Orders Doctor MIRA [id number] 00:00:00 00:00:00 Only Unassigned, PABLO [id number] [facility] 4.2.7.2.686 [id number] 2021-03-20 2021-03-20 Outpatient [facility] [id number] 00:00:00 00:00:00 Dany [id number] Juanpablo [id number] 2021-03-18 2021-03-18 Telephone Harrison [facility] [id number] [id number] 00:00:00 00:00:00 Pamela PRIMARY [id number] CARE 4.2.7.2.686 CHE [id number] 2021-03-16 2021-03-16 Transition Doyle Barker 1.2.840.114 [id number] 00:00:00 00:00:00 of Care Chelsey Dunney [id number] [place] 4.2.7.2.686 [id number] 2021-03-11 2021-03-13 Hospital Kunal Dacia 1.2.840.114 [id number] 02:03:00 17:36:00 Encounter Letitia Pablo [id number] Hospital 4.2.7.2.686 [id number] 2021-03-12 2021-03-12 Case MEHDI Serrano [id number] 00:00:00 00:00:00 Management [facility] HEALTH [id number] CLINICS 4.2.7.2.686 [id number] 2021-02-20 2021-02-20 Orders Doctor MEYERS 1.2.840.114 [id number] 00:00:00 00:00:00 Only Unassigned, PABLO 350.1.13.10 [facility] 4.2.7.2.686 [id number] 2021-01-21 2021-01-21 Orders Doctor MIRA 1.2.840.114 [id number] 00:00:00 00:00:00 Only Unassigned, PABLO 350.1.13.10 [facility] 4.2.7.2.686 [id number] 2021-01-08 2021-01-08 Orders Doctor MIRA 1.2.840.114 [id number] 00:00:00 00:00:00 Only Unassigned, PABLO 350.1.13.10 [facility] 4.2.7.2.686 [id number] 2021-01-05 2021-01-05 Transition Doyle Quan 1.2.840.114 [id number] 00:00:00 00:00:00 of Care Todd Jana Del Angel 350.1.13.10 [place] 4.2.7.2.686 [id number] 2020-12-21 2021-01-02 [facility] Hernando Latoyaenriqueta Pederson 1.2.8 [id number] 05:34:00 18:49:00 Encounter Fabrizio Samuels [place] 350.1.13.10 Nelson[facility] 4.2.7.2.686 Tiesha Palomino [id number] 2020-12-27 2020-12-27 Surgery Dacia 1.2.840.114 [id number] 14:55:00 16:17:00 Pablo 350.1.13.10 [facility] 4.2.7.2.686 [id number] 2020-12-22 2020-12-22 Surgery [facility] 1.2.711.942 [id number] 10:40:00 11:14:00 ICAL 350.1.13.10 [facility] 4.2.7.2.[address] [facility] [id number] 2020-12-19 2020-12-19 Outpatient [facility] [id number] 00:00:00 00:00:00 Dany [id number] Juanpablo [id number] 2020-11-17 2020-11-17 Outpatient [facility] [id number] 00:00:00 00:00:00 Dany [id number] Juanpablo [id number] 2020-11-10 2020-11-10 Outpatient [facility] [id number] 00:00:00 00:00:00 Dany [id number] Juanpablo [id number] 2020-10-27 2020-10-27 Outpatient [facility] [id number] 00:00:00 00:00:00 Dany [id number] Juanpablo [id number] 2020-10-27 2020-10-27 Outpatient [facility] [id number] 00:00:00 00:00:00 Dany [id number] Juanpablo [id number] 2020-10-17 2020-10-17 [facility] [id number] 00:00:00 00:00:00 Dany [id number] Juanpablo [id number] 2020-09-23 2020-09-23 Outpatient [facility] [id number] 00:00:00 00:00:00 Dany [id number] Juanpablo [id number] 2020-09-08 2020-09-08 Outpatient [facility] [id number] 00:00:00 00:00:00 Dany [id number] Juanpablo [id number] [...] SOURCE(BEAKER) (test code = 2795) Urine, Voided [id number] 13:11:00 Test Item Value Reference Range Interpretation Comments LIPASE (BEAKER) (test code = 749) 45 U/L 8-78 BASIC METABOLIC [id number] 13:11:00 Test Item Value Reference Range Interpretation [...] APPLICABLE FOR DIALYSIS PATIEN TS. HEPATIC FUNCTION [id number] 13:11:00 Test Item Value Reference Range Interpretation [...] (test code = 14 U/L 6-55 347) [id number] 13:02:00 Test Item Value Reference Range Interpretation [...] PERCENT (BEAKER) (test code = 2801) TISSUE [id number] 13:06:00Surgical Pathology Report Case: [id number] Authorizing Provider: Luiz Hayes Collected: 03/14/2018 1115 Ordering Location: [facility] Endoscopy Received: 03/14/2018 1351 Services Pathologist: Mara Barboza MD Specimens: A) -Polyp, Duodenum B) - Stomach, Antrum, bx C) - Biopsy, Gastric, gastric body D) - Biopsy, Esophagus, random THIS ADDENDUM IS ISSUED TO REPORT THE RESULT OF IMMUNOHISTOCHEMICAL STUDY FOR HELICOBACTER PYLORI OM SPECIMEN B: - NEGATIVE CPT CODE: [id number] electronically signed by Mara Barboza MD on [...] MALIGNANCY SEEN Signing Pathologist Direct Phone Line: [phone] signed by Mara Barboza MD on 03/17/2018 at 10:35 [id number] X 4; [id number] X 2A. Polyp, duodenum. B. Stomach antrum. [...] the interpretation is incorporatedin the diagnostic report above:BETTYMINA X 2 POCT-GLUCOSE [id number] 12:41:00 Test Item Value Reference Range Interpretation Comments POC-GLUCOSE METER 75 mg/dL 70-110 TESTED AT [facility] 6720 (BEAKER) (test code = [facility] Mikki [facility] [address] 1538) BLOOD [id number] 06:00:00 Test Item Value Reference Range Interpretation Comments CULTURE (BEAKER) (test No growth in 5 days code = 1095) BLOOD [id number] 06:00:00 Test Item Value Reference Range Interpretation Comments CULTURE (BEAKER) (test No growth in 5 days code = 1095) POCT-GLUCOSE [id number] 12:32:00 Test Item Value Reference Range Interpretation Comments POC-GLUCOSE METER 217 mg/dL 70-110 H TESTED AT [facility] 6720 [facility] (test code = [facility] 1538) [address] POCT-GLUCOSE [id number] 08:36:00 Test Item Value Reference Range Interpretation Comments POC-GLUCOSE METER 92 mg/dL 70-110 TESTED AT [facility] 6720 ([facility] (test code = [facility] [address] 1538) COMPREHENSIVE METABOLIC [id number] 04:59:00 Test Item Value Reference Range Interpretation [...] GFR I S NOT APPLICABLE FOR DIALYSIS PATIJESICA TS. [id number] 04:50:00 Test Item Value Reference Range Interpretation Comments MAGNESIUM (BEAKER) (test code = 1.7 mg/dL 1.6-2.6 627) PROTHROMBIN [id number] 04:35:00 Test Item Value Reference Range Interpretation [...] PERCENT (BEAKER) (test code = 2801) POCT-GLUCOSE [id number] 22:13:00 Test Item Value Reference Range Interpretation Comments POC-GLUCOSE METER 194 mg/dL 70-110 H TESTED AT [facility] 6720 (BEAKER) (test code = [place] 1538) [address] POCT-GLUCOSE [id number] 18:14:00 Test Item Value Reference Range Interpretation Comments POC-GLUCOSE METER 195 mg/dL 70-110 H TESTED AT [facility] 6720 (BEAKER) (test code = [facility] Mikki [place] 1538) [address] POCT-GLUCOSE [id number] 12:20:00 Test Item Value Reference Range Interpretation Comments POC-GLUCOSE METER 224 mg/dL 70-110 H TESTED AT [facility] 67 (BEAKER) (test code = [facility] [place] 1538) [address] [id number] 08:55:00 Test Item Value Reference Range Interpretation Comments LIPASE (BEAKER) (test code = 749) 471 U/L 8-78 H POCT-GLUCOSE [id number] 08:12:00 Test Item Value Reference Range Interpretation Comments POC-GLUCOSE METER 128 mg/dL 70-110 H TESTED AT [place] [address] (BEAKER) (test code = [facility] 1538) [address] [id number] 04:12:00 Test Item Value Reference Range Interpretation Comments T3 TOTAL (BEAKER) (test code = 656) 41 ng/dL 48-159 L T3, [id number] 04:11:00 Test Item Value Reference Range Interpretation Comments T3 FREE (BEAKER) (test code = 908) 1.31 pg/mL 1.71-3.71 L COMPREHENSIVE METABOLIC [id number] 04:01:00 Test Item Value Reference Range Interpretation [...] S NOT APPLICABLE FOR DIALYSIS PATIEN TS. [id number] 03:54:00 Test Item Value Reference Range Interpretation Comments MAGNESIUM (BEAKER) (test code = 1.7 mg/dL 1.6-2.6 627) PROTHROMBIN [id number] 03:53:00 Test Item Value Reference Range Interpretation [...] % 0-1 PERCENT (BEAKER) (test code = 2806) POCT-GLUCOSE [id number] 22:34:00 Test Item Value Reference Range Interpretation Comments POC-GLUCOSE METER 252 mg/dL 70-110 H TESTED AT [facility] 6720 (BEAKER) (test code = [place] 1538) [address] [id number] 19:36:00 Test Item Value Reference Range Interpretation Comments MAGNESIUM (BEAKER) (test code = 1.6 mg/dL 1.6-2.6 627) BASIC METABOLIC [id number] 19:36:00 Test Item Value Reference Range Interpretation [...] NOT APPLICABLE FOR DIALYSIS PATIEN TS. URINE [id number] 11:51:00 Test Item Value Reference Range Interpretation Comments CULTURE (BEAKER) (test code = 1095) No growth POCT-GLUCOSE [id number] 11:42:00 Test Item Value Reference Range Interpretation Comments POC-GLUCOSE METER 205 mg/dL 70-110 H TESTED AT [facility] 6720 ([facility] (test [facility] = [facility] [place] 1538) [address] POCT-GLUCOSE [id number] 08:08:00 Test Item Value Reference Range Interpretation Comments POC-GLUCOSE METER 119 mg/dL 70-110 H TESTED AT [facility] 6720 ([facility]) (test code = [facility] Mik[place] 1538) [address] C. DIFFICILE GDH [id number] 07:40:00 Test Item Value Reference Range Interpretation Comments CDT TOXIN (test code Negative Negative = [id number]) CDT GDH ANTIGEN Positive Negative A C. difficile present but (test code = toxin not detec leesa. [id number]) Indicates colon ization with non-toxige lizbeth strain [...] HOSPITAL Microbiology Lab prior to clinical use.POCT-GLUCOSE [id number] 06:37:00 Test Item Value Reference Range Interpretation Comments POC-GLUCOSE METER 141 mg/dL 70-110 H TESTED AT [facility] 6720 (BEAKER) (test code = [place] 1538) [address] COMPREHENSIVE METABOLIC [id number] 04:48:00 Test Item Value Reference Range Interpretation [...] NOT APPLICABLE FOR DIALYSIS PATIEN TS. PROTHROMBIN [id number] 04:40:00 Test Item Value Reference Range Interpretation Comments PROTIME (BEAKER) (test code = 23.8 seconds 11.7-14.7 H 759) INR (BEAKER) (test code = 370) 2.1 <=5.9 RECOMMENDED COUMADIN/WARFARIN INR THERAPY RANGESSTANDARD DOSE: 2.0 - 3.0 Includes: PROPHYLAXIS forvenous thrombosis, systemic embolization; TREATMENT for venous thrombosis and/or pulmonary embolus.HIGH RISK: Target INR is 2.5-3.5 for patients with mechanical heart valves.While on warfarin.[id number] 04:29:00 Test Item Value Reference Range Interpretation Comments MAGNESIUM (BEAKER) (test code = 2.0 mg/dL 1.6-2.6 627) CBC W/PLT COUNT & AUTO [id number] 04:11:00 Test Item Value Reference Range Interpretation [...] PERCENT (BEAKER) (test code = 2801) POCT-GLUCOSE [id number] 22:19:00 Test Item Value Reference Range Interpretation Comments POC-GLUCOSE METER 266 mg/dL 70-110 H TESTED AT [facility] 67 (BEAKER) (test code = [facility] 1538) [address] [id number] 17:54:00 Test Item Value Reference Range Interpretation Comments POTASSIUM (BEAKER) (test code = 4.2 meq/L 3.5-5.1 379) [id number] 17:23:00 Test Item Value Reference Range Interpretation Comments MAGNESIUM (BEAKER) (test code = 1.7 mg/dL 1.6-2.6 627) POCT-GLUCOSE [id number] 12:41:00 Test Item Value Reference Range Interpretation Comments POC-GLUCOSE METER 111 mg/dL 70-110 H TESTED AT [facility] 6720 (BEAKER) (test code = [facility] 1538) [address] [id number] 12:40:00 Test Item Value Reference Range Interpretation Comments POTASSIUM (BEAKER) (test code = 3.5 meq/L 3.5-5.1 379) POCT-GLUCOSE [id number] 10:05:00 Test Item Value Reference Range Interpretation Comments POC-GLUCOSE METER 94 mg/dL 70-110 TESTED AT [facility] 6720 (BEAKER) (test code = [place] [address] 1538) COMPREHENSIVE METABOLIC [id number] 05:47:00 Test Item Value Reference Range Interpretation [...] S NOT APPLICABLE FOR DIALYSIS PATIEN TS. [id number] 05:44:00 Test Item Value Reference Range Interpretation Comments MAGNESIUM (BEAKER) (test code = 2.0 mg/dL 1.6-2.6 627) PROTHROMBIN [id number] 05:37:00 Test Item Value Reference Range Interpretation Comments PROTIME (BEAKER) (test code = 24.0 seconds 11.7-14.7 H 759) INR (BEAKER) (test code = 370) 2.2 <=5.9 RECOMMENDED COUMADIN/WARFARIN INR THERAPY RANGESSTANDARD DOSE: 2.0 - 3.0 Includes: PROPHYLAXIS forvenous thrombosis, systemic embolization; TREATMENT for venous thrombosis and/or pulmonary embolus.HIGH RISK: Target INR is 2.5-3.5 for patients with mechanical heart valves.PROTHROMBIN TIME/[id number] 05:36:00 Test Item Value Reference Range Interpretation [...] valves.While on warfarin.CBC W/PLT COUNT & AUTO [id number] 05:35:00 Test Item Value Reference Range Interpretation [...] PERCENT (BEAKER) (test code = 2801) POCT-GLUCOSE [id number] 23:56:00 Test Item Value Reference Range Interpretation Comments POC-GLUCOSE METER 105 mg/dL 70-110 TESTED AT [facility] 6720 ([facility]) (test code = [place] 1538) [address] TROPONIN [id number] 13:02:00 Test Item Value Reference Range Interpretation [...] 0-100 H (test code = 700) POCT-GLUCOSE [id number] 12:18:00 Test Item Value Reference Range Interpretation Comments POC-GLUCOSE METER 175 mg/dL 70-110 H TESTED AT [facility] 6720 (MATTHEW) (test code = [place] 1538) [address] U/S, ABDOMINAL, [id number] 10:23:00Abdomen limited area? Add comment if clarification [...] Reading Location: [facility] [id number] [facility] Consult Reading Room T4, [id number] 08:42:00 Test Item Value Reference Range Interpretation Comments FREE T4 (MATTHEW) (test code = 655) 0.83 ng/dL 0.70-1.48 POCT-GLUCOSE [id number] 08:37:00 Test Item Value Reference Range Interpretation Comments POC-GLUCOSE METER 161 mg/dL 70-110 H TESTED AT [facility] 6720 ([facility]) (test code = MICAH Kaye [facility] 1538) [address] TSH/FREE T4 IF [id number] 08:05:00 Test Item Value Reference Range Interpretation Comments THYROID STIMULATING HORMONE 0.02 uIU/mL 0.35-4.94 L ([facility]) (test code = 772) VITAMIN B12 AND [id number] 07:42:00 Test Item Value Reference Range Interpretation Comments VITAMIN B12 (BEAKER) (test code = 1276 pg/mL 213-816 H 774) FOLATE (BEAKER) (test code = 362) 8.8 ng/mL >=7.0 LIPID [id number] 07:14:00 Test Item Value Reference Range Interpretation [...] Borderline 130-159 High 160-189 Very High >=190TROPONIN [id number] 07:12:00 Test Item Value Reference Range Interpretation [...] acute neurological disease, and persistent tachyarrhythmia.URINALYSIS W/ [id number] 06:35:00 Test Item Value Reference Range Interpretation [...] 517) SOURCE(BEAKER) (test code = Urine, [place] 5545) [id number] 06:07:00 Test Item Value Reference Range Interpretation Comments MAGNESIUM (BEAKER) (test code = 1.8 mg/dL 1.6-2.6 627) [id number] 05:32:00 Test Item Value Reference Range Interpretation Comments MAGNESIUM (BEAKER) (test code = 2.5 mg/dL 1.6-2.6 627) COMPREHENSIVE METABOLIC [id number] 05:32:00 Test Item Value Reference Range Interpretation [...] NOT APPLICABLE FOR DIALYSIS PATIEN TS. PROTHROMBIN [id number] 05:10:00 Test Item Value Reference Range Interpretation [...] 0-1 PERCENT (BEAKER) (test code = 2801) [id number] 02:52:00 Test Item Value Reference Range Interpretation Comments PROCALCITONIN (BEAKER) (test code 0.41 ng/mL <0.05 H = 3036) SEPSIS RISK (ng/mL)Low: 0.05-0.50Intermediate: 0.51-2.00High: >=2.01LACTIC ACID, VENOUS, WHOLE [id number] 02:06:00 Test Item Value Reference Range Interpretation Comments LACTATE BLOOD VENOUS 1.3 mmol/L 0.5-2.2 Specime n slightly (2) (BEAKER) (test hemolyzed code = 2872) Effective 01/07/2016: Units/Reference Range ChangeNew: 0.5-2.2 mmol/L Previous: 5-20 mg/dLCOMPREHENSIVE METABOLIC [id number] 02:06:00 Test Item Value Reference Range Interpretation [...] S NOT APPLICABLE FOR DIALYSIS PATIEN TS. [id number] 02:04:00 Test Item Value Reference Range Interpretation Comments LIPASE (BEAKER) (test code = 749) 730 U/L 8-78 H [id number] 02:04:00 Test Item Value Reference Range Interpretation Comments AMYLASE (BEAKER) (test code = 349) 226 U/L 25-125 H PROTHROMBIN [id number] 01:45:00 Test Item Value Reference Range Interpretation Comments PROTIME (BEAKER) (test code = 23.9 seconds 11.7-14.7 H 759) INR (BEAKER) (test code = 370) 2.1 <=5.9 RECOMMENDED COUMADIN/WARFARIN INR THERAPY RANGESSTANDARD DOSE: 2.0 - 3.0 Includes: PROPHYLAXIS forvenous thrombosis, systemic embolization; TREATMENT for venous thrombosis and/or pulmonary embolus.HIGH RISK: Target INR is 2.5-3.5 for patients with mechanical heart valves.[id number] 01:45:00 Test Item Value Reference Range Interpretation Comments PARTIAL THROMBOPLASTIN TIME 32.4 seconds 22.5-36.0 (BEAKER) (test code = 760) CBC W/PLT COUNT & AUTO [id number] 01:38:00 Test Item Value Reference Range Interpretation [...] % 0-1 PERCENT (BEAKER) (test code = 0706)
[2021-04-28 14:02] LABS: Urine Blood Trace-intact (Negative); Urine Glucose Negative (Negative); Urine Protein Negative (Negative)
--- NOTE | 2021-04-28 14:04 | EDPHYS ---
Physician Documentation [facility] Name: Emelia Payan Age: 80 yrs Sex: Female : 1940 Arrival Date: 04/28/2021 Time: 11:55 Bed DIS3 Private MD: ED Physician Adan Bolden HPI: 04/28 13:58 This 80 yrs old Female presents to ER via Wheelchair with complaints of rn Anxiety. 13:59 The patient presents to the emergency department with anxiety. Onset: The rn symptoms/episode began/occurred this morning. Associated signs and symptoms: Pertinent positives; anxiety, Pertinent negatives: chest pain, hallucinations, homicidal ideation, shortness of breath, suicide ideation. Severity of symptoms: At their worst the symptoms were moderate in the emergency department the symptoms have improved. The patient has experienced similar episodes in the past. The patient has not recently seen a physician. Patient reports today is son's birthday, and he committed suicide a few years back, patient began to feel panic attack and anxiety and overwhelmed with emotion. Patient states took her anxiety medication about 30 to 45 minutes prior to arrival and since arrival has felt much better. Currently does not feel like is having a panic attack or in the middle of a panic attack. Reports mild amount of anxiety. Denies suicidal ideations. Patient feels like she is closely back to normal and ready to go home.. Historical: - Allergies: 12:26 Bactrim; kg 12:26 Cipro; kg 12:26 Xarelto; kg 12:26 Zosyn; kg - Home Meds: 12:26 amlodipine 5 mg tab 2 tabs once daily [Active]; atorvastatin 40 mg Oral tab 1 tab once kg daily [Active]; clonazepam 0.5 mg Oral tab 1 tab as needed [Active]; Dexilant 60 mg Oral CpDB 1 cap once daily [Active]; fenofibrate 145 MG Oral 1 tab once daily [Active]; glipizide 2.5 mg Oral tr24 1 tabs once daily [Active]; Humatrope injection once daily [Active]; potassium chloride 20 mEq Oral TbER 1 tab once daily [Active]; hydrocortisone 20 mg Oral tab 1.5 tabs 2 times per day [Active]; levothyroxine 112 mcg tab 1 tab once daily [Active]; zinc sulfate 50 mg zinc (220 mg) Oral tab daily [Active]; vit B comp-vit [id number] oral [Active]; Vitamin C 500 mg Oral tab daily [Active]; isosorbide dinitrate 30 mg Oral tab 1 tab [Active]; Eliquis 2.5 mg oral tab 1 tab 2 times per day [Active]; mirtazapine 15 mg Oral tab 1 tab once daily [Active]; sotalol 160 mg Oral tab 1 tab 2 times per day [Active]; tramadol 50 mg Oral tab 1 tab every 4 hours [Active]; Protonix 40 mg Oral TbEC 2 tabs once daily [Active]; docusate sodium 100 mg Oral cap 1 cap once daily [Active]; - PMHx: 12:26 adrenal insuficiency; Anxiety; Atrial Fib; CHF; CVA; Diabetes - IDDM; DVT; kg Hyperlipidemia; Hypertension; Hypothyroidism; L groin blood clot; lymphedema; Pancreatitis; - PSHx: 12:26 filter; kg - Immunization history:: Adult Immunizations up to date, Client reports receiving the 2nd dose of the Covid vaccine, Date received: November 02, 2020 [facility] Client reports receiving the 1st dose of the Covid vaccine, September 27, 2020 [facility]. - Social history:: Smoking status: Patient denies any tobacco usage or history of. - Family history:: not pertinent. - Hospitalizations: : No recent hospitalization is reported. ROS: 14:00 Constitutional: Negative for fever, chills, and weight loss, Eyes: Negative for injury, rn pain, redness, and discharge, Neck: Negative for injury, pain, and swelling, Cardiovascular: Negative for chest pain, and edema, Respiratory: Negative for shortness of breath, cough, wheezing, and pleuritic chest pain, Abdomen/GI: Negative for abdominal pain, nausea, vomiting, diarrhea, and constipation, Back: Negative for injury and pain, : Negative for injury, bleeding, discharge, and swelling, MS/Extremity: Negative for injury and deformity, Skin: Negative for injury, rash, and discoloration, Neuro: Negative for headache, weakness, numbness, tingling, and seizure, Psych: Positive for anxiety Exam: 14:00 Constitutional: This is a well developed, well nourished patient who is awake, alert, rn and in no acute distress. Head/Face: Normocephalic, atraumatic. Eyes: Periorbital areas with no swelling, redness, or edema. Cardiovascular: Regular rate and rhythm. No pulse deficits. Respiratory: No increased work of breathing, no retractions or nasal flaring. Neuro: Awake and alert, GCS 15 Vital Signs: 12:21 BP 165 / 94; Pulse 92; Resp 20; Temp 98.2; Pulse Ox 100% on R/A; Weight 72.57 kg; kg Height 5 ft. 4 in. (162.56 cm); Pain 0/10; 12:21 Body Mass Index 27.46 (72.57 kg, 162.56 cm) kg MDM: 13:54 Patient medically screened. rn 14:00 Differential diagnosis: depression, Anxiety. Data reviewed: vital signs, nurses notes, rn old medical records, and as a result, I will discharge patient. Counseling: I had a detailed discussion with the patient and/or guardian regarding: the historical points, exam findings, and any diagnostic results supporting the discharge/admit diagnosis, the need for outpatient follow up, to return to the emergency department if symptoms worsen or persist or if there are any questions or concerns that arise at home. Special discussion: I discussed with the patient/guardian in detail that at this point there is no indication for admission to the hospital. It is understood, however, that if the symptoms persist or worsen the patient needs to return immediately for re-evaluation. ED course: Patient feels much better nearly back to baseline, states would like to go home and does not feel like needs any sort of investigation or medication. Has anxiety medicine at home. Will DC home. 04/28 14:02 Order name: Urine Dipstick-Ancillary; Complete Time: 14:06 EDMS Administered Medications: No medications were administered Disposition Summary: 04/28/21 14:03 Discharge Ordered Location: Home rn Problem: new rn Symptoms: have improved rn Condition: Stable rn Diagnosis - Anxiety disorder, unspecified rn Followup: rn - With: Private Physician - When: As needed - Reason: Recheck today's complaints, Re-evaluation by your physician Discharge Instructions: - Discharge Summary Sheet rn - Panic Attack rn - Generalized Anxiety Disorder, Adult rn Forms: - Medication Reconciliation Form rn - Thank You Letter rn - Antibiotic assistant county attorney - Prescription Opioid Use rn Signatures: Dispatcher [facility] EDIA Adan Bolden MD MD rn Graham, Kristen, RN RN kg Corrections: (The following items were deleted from the chart) 14:01 13:59 Patient reports today is son's birthday,. flori rn
--- NOTE | 2021-04-28 14:04 | ER ---
Nurse's Notes [facility] Name: Emelia Payan Age: 80 yrs Sex: Female : 1940 Arrival Date: 04/28/2021 Time: 11:55 Bed DIS3 Private MD: Diagnosis: Anxiety disorder, unspecified Presentation: 04/28 12:21 Chief complaint: Patient states: Pt stated, "I'm having sever anxiety and nausea. I'm kg having a little bit of problem today. It's my sons birthday and he committed suicide three years ago." Pt stated she took her Clonazepam at 11:00. Pt also states she's SOB. Coronavirus screen: Client denies travel out of the [place] in the last 14 days. At this time, unable to obtain information related to travel outside the [place] At this time, the client does not indicate any symptoms associated with coronavirus-19. Ebola Screen: Patient negative for fever greater than or equal to 101.5 degrees Fahrenheit, and additional compatible Ebola Virus Disease symptoms Patient denies exposure to infectious person. Patient denies travel to an Ebola-affected area in the 21 days before illness onset. 12:21 Method Of Arrival: Wheelchair kg 12:25 Initial Sepsis Screen: Does the patient meet any 2 criteria? No. Patient's initial kg sepsis screen is negative. Does the patient have a suspected source of infection? No. Patient's initial sepsis screen is negative. Risk Assessment: Do you want to hurt yourself or someone else? Patient reports no desire to harm self or others. Onset of symptoms was April 28, 2021 at 10:45. 12:25 Acuity: EDIS 4 kg Triage Assessment: 12:26 General: Appears in no apparent distress. Behavior is calm, cooperative, appropriate kg for age, quiet. Pain: Denies pain. Historical: - Allergies: 12:26 Bactrim; kg 12:26 Cipro; kg 12:26 Xarelto; kg 12:26 Zosyn; kg - Home Meds: 12:26 amlodipine 5 mg tab 2 tabs once daily [Active]; atorvastatin 40 mg Oral tab 1 tab once kg daily [Active]; clonazepam 0.5 mg Oral tab 1 tab as needed [Active]; Dexilant 60 mg Oral CpDB 1 cap once daily [Active]; fenofibrate 145 MG Oral 1 tab once daily [Active]; glipizide 2.5 mg Oral tr24 1 tabs once daily [Active]; Humatrope injection once daily [Active]; potassium chloride 20 mEq Oral TbER 1 tab once daily [Active]; hydrocortisone 20 mg Oral tab 1.5 tabs 2 times per day [Active]; levothyroxine 112 mcg tab 1 tab once daily [Active]; zinc sulfate 50 mg zinc (220 mg) Oral tab daily [Active]; vit B comp-vit [id number] oral [Active]; Vitamin C 500 mg Oral tab daily [Active]; isosorbide dinitrate 30 mg Oral tab 1 tab [Active]; Eliquis 2.5 mg oral tab 1 tab 2 times per day [Active]; mirtazapine 15 mg Oral tab 1 tab once daily [Active]; sotalol 160 mg Oral tab 1 tab 2 times per day [Active]; tramadol 50 mg Oral tab 1 tab every 4 hours [Active]; Protonix 40 mg Oral TbEC 2 tabs once daily [Active]; docusate sodium 100 mg Oral cap 1 cap once daily [Active]; - PMHx: 12:26 adrenal insuficiency; Anxiety; Atrial Fib; CHF; CVA; Diabetes - IDDM; DVT; kg Hyperlipidemia; Hypertension; Hypothyroidism; L groin blood clot; lymphedema; Pancreatitis; - PSHx: 12:26 filter; kg - Immunization history:: Adult Immunizations up to date, Client reports receiving the 2nd dose of the Covid vaccine, Date received: November 02, 2020 [facility] Client reports receiving the 1st dose of the Covid vaccine, September 27, 2020 [facility]. - Social history:: Smoking status: Patient denies any tobacco usage or history of. - Family history:: not pertinent. - Hospitalizations: : No recent hospitalization is reported. Screenin:15 Abuse screen: Denies threats or abuse. Denies injuries from another. Nutritional ss screening: No deficits noted. Tuberculosis screening: Never had TB. Fall Risk None identified. Assessment: 14:15 General: Appears in no apparent distress. comfortable, Behavior is calm, cooperative. ss Neuro: Level of Consciousness is awake, alert, obeys commands, Oriented to person, place, time, situation. Cardiovascular: Capillary refill < 3 seconds is brisk in bilateral fingers Patient's skin is warm and dry. Respiratory: Airway is patent Respiratory effort is even, unlabored, Respiratory pattern is regular, symmetrical. GI: Patient currently denies diarrhea, nausea, vomiting. EENT: Nares are clear. Derm: Skin is intact, is healthy with good turgor, Skin is dry, Skin is pink, warm \\T\\ dry. normal. Vital Signs: 12:21 BP 165 / 94; Pulse 92; Resp 20; Temp 98.2; Pulse Ox 100% on R/A; Weight 72.57 kg; kg Height 5 ft. 4 in. (162.56 cm); Pain 0/10; 12:21 Body Mass Index 27.46 (72.57 kg, 162.56 cm) kg ED Course: 11:55 Patient arrived in ED. ds1 12:26 Triage completed. kg 12:26 Arm band placed on right wrist. kg 13:43 Paty Otoole RN is Primary Nurse. ss 13:54 Adan Bolden MD is Attending Physician. rn 14:15 Patient has correct armband on for positive identification. Bed in low position. Call ss light in reach. 14:16 No provider procedures requiring assistance completed. Patient did not have IV access ss during this emergency room visit. Administered Medications: No medications were administered Outcome: 14:03 Discharge ordered by . rn 14:16 Discharged to home via wheelchair, with family. ss 14:16 Condition: good 14:16 Discharge instructions given to patient, family, Instructed on discharge instructions, follow up and referral plans. Demonstrated understanding of instructions, follow-up care. 14:17 Patient left the ED. ss Signatures: Philomena Hwang ds1 Adan Bolden MD MD rn Smirch, Shelby, RN RN Lynsey Chauhan RN RN kg
[2021-04-28 14:24] VITALS: BP 165/94; TEMP 98.2; O2SAT 100
== END 2021-04-28 14:17 | disposition home or self-care (01) ==
LOC: ER 11:52
DX: F41.9 Anxiety disorder, unspecified (principal); E11.9 Type 2 diabetes mellitus without complications; I50.9 Heart failure, unspecified; I10 Essential (primary) hypertension; I48.91 Unspecified atrial fibrillation; Z79.01 Long term (current) use of anticoagulants; Z88.1 Allergy status to other antibiotic agents; Z88.8 Allergy status to other drugs, medicaments and biological substances
CPT/HCPCS: 81003; 99281

== ENCOUNTER 2021-08-07 14:43 | Inpatient (IN) | payer OTHER ==
--- OUTSIDE RECORDS SUMMARY | 2021-08-07 14:50 | XMS REPORT | Continuity of Care Document ---
:1940 Author Organization [facility] t Address [address] [place] [address] Care Team Providers Name Role Phone William Iraheta Primary Care Physician LEEANNA_Mikki Attending Clinician Unavailable KELY Attending Clinician Unavailable Augie NELSON JR Attending Clinician Unavailable Juanpablo Iraheta Attending Clinician [phone] Ashley TEMPLE Attending Clinician Bonifacio STRATTON Attending Clinician [facility] Attending Clinician Unavailable Doctor Unassigned, Name Attending Clinician Unavailable Harrison CRAIN Attending Clinician Lucero DONALD Attending Clinician Unavailable Kely STRATTON Attending Clinician Zach FAROOQ Attending Clinician Kadeem DONALD, A Attending Clinician Unavailable Efe Villagomez MD Attending Clinician Abril STRATTON P Attending Clinician Rubi Bailon MD, J Attending Clinician Mesha Palomino MD Attending Clinician RODNEY DEL ROSARIO Attending Clinician Unavailable LETTY HAYES Attending Clinician Unavailable ARLENE SANDOVAL Attending Clinician Unavailable JASON Admitting Clinician Unavailable KELY Admitting Clinician Unavailable EFE VILLAGOMEZ Admitting Clinician Unavailable Kely STRATTON Admitting Clinician Mesha Palomino MD Admitting Clinician LETTY HAYES Admitting Clinician Unavailable ARLENE SANDOVAL Admitting Clinician Unavailable Payers Payer Name Policy Type Policy Number Effective Date Expiration Source Date MEDICARE B-[place]: [id number] 2003 [facility] 00:00:00 AETNA [id number] 2000 00:00:00 MEDICARE PART A \\T\\ B [id number] 2003 00:00:00 MEDICAREMEDICARE A [id number] 2003 [facility] [id number] 2003 [facility]:00[facility]00 [facility] AETNA - MGD CAREAETNA [id number] [facility] INDEMNITY NON 00:00:00 [facility] - [id number] Med ical 14-[facility] Center Problems Condition Condition Condition Status Onset Resolution Last Treating Co mments Source Name Details Category Date Date Treatment Clinician Date Recurrent Recurrent Disease Active Uni vers acute deep acute deep 03-11 it y of vein vein 00:00: [place] thrombosis thrombosis 00 Me dical (DVT) of (DVT) of Branch left lower left lower extremity extremity DVT, lower DVT, lower Disease Active U nivkriss extremity, extremity, 7 it y of proximal[place] proximal, [place] acute, acute, 00 Medical left left Branch Melena Melena Disease Active Univers 4-18 ity of 00:00: [place] 00 Medical Branch Osteoporos Osteoporos Disease Active U nivers is is 3-05 ity of 00:00: 00 Medical Branch Degenerati Degenerati Disease Active U nivers on of on of 3-05 ity of lumbar lumbar 00:00: [place] interverte interverte 00 Me dical bral disc bral disc Bran ch Compressio Compressio Disease Active U nivers n fracture n fracture 3-05 it y of of lumbar of lumbar 00:[place] vertebra vertebra 00 Medica [place] Branch Scoliosis Scoliosis Disease Active Uni vers of lumbar of lumbar 2-12 ity of spine spine 00:00: [place] 00 Medical Branch Neuropathy Neuropathy Disease Active 2020-0 U nivers 1-07 ity of 00:00: [place] 00 Medical Branch 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 hyperchole 1-07 it y of sterolemia sterolemia 00:[place] Medical hypertrigl hypertrigl Br anch yceridemia yceridemia Malignant Malignant Disease Active 2020-0 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 00:00[place] gland gland 00 [place] Lymphedema Lymphedema Disease Active 2020-0 U nivers 1-07 ity of 00:00: [place] Medical [facility] Hypothyroi Hypothyroi Disease Active 2020-0 U nivers dism dism 1-07 ity of 00:00: [place] 00 Medical Branch History of History of Disease Active 2020-0 U nivers 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 00:00: [place] of breast of breast 00 [facility] Branch Gastroesop Gastroesop Disease Active 2020-0 U nivers hageal hageal 1-07 ity of reflux reflux 00:00: [place] disease disease 00 Medical Branch Anxiety Anxiety Disease Active 2020-0 Univers 1-07 ity of 00:00: [place] 00 Medical Branch Hypertensi Hypertensi Disease Active 2020-0 U nivers ve ve 1-07 ity of disorder disorder 00:00: [place] 00 Medical Branch Type 2 Type 2 Disease Active 2020-0 Univers diabetes diabetes 1-07 ity of mellitus mellitus 00:00: [place] Medical [facility] Chronic Chronic Disease Active 2020-0 Univers atrial atrial 1-07 ity of fibrillati fibrillati [place] Pancreatit Pancreatit Disease Active 2018- [facility]12 [facility] - 00:[facility] Medical 00 Center Sepsis Sepsis Disease Active 2017- [facility] - 00:[facility]: Medical 00 Center Paroxysmal Paroxysmal Disease Active 2018-[address] A-fib A-fib 5-12 [facility] - 00:[facility]: Medical 00 Center Chest pain Chest pain Disease Active 2016-0 U nivers 6-15 ity of 00:00: [place] Medical Branch Allergies, Adverse Reactions, Alerts Allergy Allergy Status Severity Reaction(s) Onset Inactive Treating Comm ents Source Name Type Date Date Clinician CIPROFLO DRUG Active Unknown-Cmnt Un ezekiel XACIN INGREDI 4-18 ity of 00:00: [place] 00 Medical Branch PIPERACI DRUG Active Unknown-Cmnt Un ezekiel LLIN-MICHAEL 4-18 ity of OBACTAM 00:00: [place] 00 Medical Branch Ciproflo Propensi Active Unknown - itch Uni vers xacin ty to See comments 4-18 ity of adverse 00:00: [place] reaction 00 Medical s Branch Piperaci Propensi Active Unknown - bleeding U nivers llin-Michael ty to See comments 4-18 it y of obactam adverse 00:00: [place] reaction [facility] Ciproflo Propensi Active Itching [facility] xacin ty to 5 [facility] - adverse 00:00: Medical reaction 00 [place] [facility] [place] Drug Active Other (See Internal [facility] ban Intolera Comments) 01-14 bleeding Mindy es - nce 00:00: Medical [address] [place] [address] Family History Family Member Diagnosis Comments Start Date Stop Date Source Natural father Coronary Heart Univer [facility] Natural father Heart disease [facility] Natural mother Coronary Heart [facility] Natural mother Heart disease [facility] Natural sister Heart [facility] Social History Social Habit Start Date Stop Date Quantity Comments Source Alcohol intake 2021-05-05 2021-05-05 Lifetime University 00:00:00 00:00:00 non-drinker [facility] [place] Tobacco use and 2018-11-09 2018-11-09 Never used [facility] - exposure 00:00:00 00:00:00 [facility] Sex Assigned At [birth year] Universit y of 00:00:00 00:00:00 [facility] Smoking Status Start Date Stop Date Source Never smoker [facility] Medications Ordered Filled Start Stop Current Ordering Indication Dosage Frequency Signature Comments Components Source Medication Medication Date Date Medication? Clinician (SIG) Name Name isosorbide Yes [id number] 30mg Take 1 U nivers mononitrate 7-10 tablet by ity of 30 mg 24 hr 00:00: mouth [place] tablet 00 daily. Medical Branch levothyroxi Yes [id number] 112ug Take 1 Univers ne 112 mcg 7-10 tablet by ity of tablet 00:00: mouth [place] 00 every Medical morning. Branch hydrocortis Yes [id number] 40mg Take 2 Univers one 20 mg 7-10 tablets by ity of tablet 00:00: mouth [place] 00 every Medical morning. Branch losartan Yes 100mg Take 100 Univ ers (COZAAR) 7-09 mg by ity of 100 mg 18:04: mouth [place] tablet 43 daily. Medical Branch amLODIPine Yes 5mg Take 5 mg Un ezekiel (NORVASC) 5 7-09 by mouth ity of mg tablet 18:04: daily. [place] 43 Medical Branch CALCIUM Yes 1{tbl} Take 1 Univer s CARB/VIT 7-09 tablet by ity of D3/MINERALS 18:04: mouth [place] (CALCIUM 43 daily. Medical CARBONATE-V Branch IT D3-MIN ORAL) fenofibrate Yes 145mg Take 145 U nivers 145 mg 7-09 mg by ity of tablet 18:04: mouth [place] 43 daily. Medical Branch nitroglycer Yes .4mg Place 0.4 U nivers in 0.4 mg 7-09 mg under ity of sublingual 18:04: the tongue [place] tablet 43 as needed. Medical Branch lipase-prot Yes [id number] 1{capsu Take 1 Univers ease-amylas 7-09 107 le} capsule by it y of e 00:00: mouth 3 [place] 10,500-35,5 00 (three) Medic al 00- 61,500 times Branch unit daily with meals. polyethylen Yes [id number] 17g Take 1 Univers e glycol 7-09 Packet by ity of 3350 17 00:00: mouth 2 [place] gram powder 00 (two) Medical times Branch daily as needed for Constipati on. simethicone Yes [id number] 80mg Take 1 Univers 80 mg 7-09 tablet by ity of chewable 00:00: mouth 2 [place] tablet 00 (two) Medical times Branch daily as needed for Gas. somatropin Yes [id number] .2mg inject U nivers 0.2 mg/0.25 7- 0.25 mL ity o f mL 00:00: under the [place] 00 skin Medical daily. Branch apixaban 5 Yes [id number] 5mg Take 1 Unive rs mg tablet - tablet by ity o f 00:00: mouth 2 [place] 00 (two) Medical times Branch daily. Indication s: atrial fibrillati on hydrocortis Yes [id number] 20mg Take 1 Univers one 20 mg - tablet by ity o f tablet 00:00: mouth [place] 00 every Medical evening. Branch mirtazapine Yes [id number] 15mg Take 1 Univers 15 mg - tablet by ity of tablet 00:00: mouth at [place] 00 bedtime. Medical Branch hydrocortis Yes [id number] 100mg 2 mL by Univers one sod 03-13 Intramuscu ity of succ 100 00:00: lar route [place] mg/2 mL 00 as needed Medical injection (As rescue Bran ch for low cortisol if there is low BP, N/V.). acetaminoph 2021- No [id number] 650mg Take 2 Univers en 325 mg 03-13 07-10 8 tablets by ity of tablet 00:00: 04:59 mouth [place] 00 :00 every 6 Medical (six) Branch hours as needed for Pain (scale 1-3). hydrocortis Yes 20mg Take 1 Univ ers one 20 mg 4-30 tablet by ity o f tablet 00:00: mouth [place] 00 every Medical morning. Branch lidocaine 5 Yes 1{patch Apply 1 Univers % (700 4-29 } Patch to ity of mg/patch) 00:00: area(s) [place] patch 00 daily. Medical Branch sotaloL 80 Yes 80mg Take 1 Unive rs mg tablet 4-29 tablet by ity o f 00:00: mouth [place] 00 every 12 Medical (twelve) Branch hours. atorvastati Yes 40mg Take 1 Univ ers n 40 mg 4-29 tablet by ity of tablet 00:00: mouth at [place] 00 bedtime. Medical Branch hydrocortis Yes 10mg Take 1 Univ ers one 10 mg 4-29 tablet by ity o f tablet 00:00: mouth [place] 00 every Medical evening. Branch cholecalcif 2019-[id number] [facility], 3-07 50,000 [facility] [...] MEQ CR 28 daily. Center tablet LORazepam 2018- Yes .5mg Take 0.[address] (ATIVAN) 3-07 mg by [facility]ukes - 0.5 MG 12:12: mouth as Medical tablet 28 needed for Center Anxiety. somatropin 2018- Yes Inject [facility] t 5 mg/1.5 mL 3-07 subcutaneo Domitila kes - (3.3 mg/mL) 12:12: usly. Medic al PnIj 28 Center cholecalcif 2019-0 Yes [id number] Take [facility], 3-07 50,000 [facility] - vitamin D3, 12:12: Units by Mi dical 50,000 unit 28 mouth once Ce [...] MG tablet 12:12: daily. Medica l 27 [place] losartan Yes 100mg QD Take 100 [facility] [...] MG tablet 12:12: daily. Medica l 27 [place] losartan Yes 100mg QD Take 100 CHI [...] 00:00: mouth Medical tablet 00 daily . [place] gabapentin Yes 600mg Q.[id number] Take [address] (NEURONTIN) 4-16 [id number] mg by L ukes - 600 MG 00:00: 3D mouth 3 Medical tablet 00 (three) Center times daily . gabapentin 20180 Yes 600mg Q.[id number] Take [address] (NEURONTIN) 4-16 [id number] mg by L ukes - 600 MG 00:00: 3D mouth 3 Medical tablet 00 (three) Center times daily . liothyronin 0 Yes 5ug QD Take [address] e (CYTOMEL) 3-21 by mouth Luke s - 5 MCG 00:00: daily . Medical tablet 00 [place] liothyronin Yes 5ug QD Take [address] e (CYTOMEL) 3-21 by mouth Luke s - 5 MCG 00:00: daily . Medical tablet 00 [place] Immunizations Ordered Filled Immunization Date Status Comments [facility] e Immunization Name Name SARS-COV-2 COVID-19 2020-10-25 Completed Unive rsity of MODERNA VACCINE 00:00:00 [facility] SARS-COV-2 COVID-19 2020-09-27 Completed Unive rsity of MODERNA VACCINE 00:00:00 [facility] Influenza Virus 2020-05-07 Completed Universit y of Vaccine Quad IM 00:00:00 [facility] Multi-dose 6+ MO Branch Influenza Virus 2019-07-10 Completed Universit y of Vaccine Quad IM 00:00:00 [facility] ica Multi-dose 6+ MO Branch Vital Signs Vital Name Observation Time Observation Value Comments Source Systolic blood 2021-03-13 20:52:00 132 mm[Hg] [facility] Diastolic blood 2021-03-13 20:52:00 69 mm[Hg] [facility] rate 2021-03-13 20:52:00 63 /min [facility] Body temperature 2021-03-13 20:52:00 36.94 Noemy [facility] Respiratory rate 2021-03-13 20:52:00 18 /min [facility] Oxygen saturation in 2021-03-13 20:52:00 97 /min [facility] Arterial blood by [facility] Pulse oximetry [place] Body height 2021-03-11 07:30:00 162.6 cm [facility] Body weight 2021-03-11 07:30:00 76 kg bed scale [facility] BMI 2021-03-11 07:30:00 28.76 kg/m2 [facility] Procedures Procedure Date / Time Performing Clinician Source Performed EXTERNAL PROVIDER RECORDS 2021-03-24 05:01:00 Doctor Unassigned, [facility] POCT GLUCOSE (AUTOMATED) 2021-03-13 16:51:00 Josy Syed Uni [facility] POCT GLUCOSE (AUTOMATED) 2021-03-13 13:05:00 Josy Syed [facility] CBC WITHOUT DIFF 2021-03-13 11:24:00 Pamela Terry [facility] BASIC METABOLIC PANEL 2021-03-13 11:24:00 Pamela Terry [facility] (NA, K, CL, CO2, GLUCOSE, Medica l Branch BUN, CREATININE, CA) POCT GLUCOSE (AUTOMATED) 2021-03-13 05:07:00 Josy Syed Uni [facility] POCT GLUCOSE (AUTOMATED) 2021-03-12 23:47:00 Josy Syed [facility] CBC WITHOUT DIFF 2021-03-12 23:30:00 Harrison [facility] POCT GLUCOSE (AUTOMATED) 2021-03-12 20:23:00 Josy Syed Uni [facility] POCT GLUCOSE (AUTOMATED) 2021-03-12 19:28:00 Josy Syed [facility] IR IVC FILTER INSERTION 2021-03-12 18:43:35 Alvaro Shields [facility] POCT GLUCOSE (AUTOMATED) 2021-03-12 13:12:00 Josy Syed [facility] BASIC METABOLIC PANEL 2021-03-12 10:25:00 Harrison [facility] (NA, K, CL, CO2, GLUCOSE, Medica l Branch BUN, CREATININE, CA) CBC WITH DIFF 2021-03-12 10:25:00 Harrison [facility] MAGNESIUM 2021-03-12 10:25:00 Harrison [facility] ACTIVATED PARTIAL 2021-03-12 05:01:00 Alvaro Shields [facility] POCT GLUCOSE (AUTOMATED) 2021-03-12 01:11:00 Josy Syed [facility] POCT GLUCOSE (AUTOMATED) 2021-03-11 21:16:00 Josy Syed [facility] BASIC METABOLIC PANEL 2021-03-11 20:47:00 Harrison [facility] (NA, K, CL, CO2, GLUCOSE, Medica l Branch BUN, CREATININE, CA) ACTIVATED PARTIAL 2021-03-11 18:53:00 Alvaro Shields [facility] US LOWER EXTREMITY VEIN 2021-03-11 17:18:10 Alvaro Shields [facility] WITH COMPRESSION Medical Branch BILATERAL (ONLY FOR RULE OUT DVT) CT ABDOMEN PELVIS W 2021-03-11 17:16:28 Alvaro Shields [facility] CONTRAST [facility] POCT GLUCOSE (AUTOMATED) 2021-03-11 16:50:00 Josy Syed [facility] POCT GLUCOSE (AUTOMATED) 2021-03-11 14:31:00 Kely Ricjayna Youssef [facility] COVID-19 (ID NOW RAPID 2021-03-11 13:18:00 Alvaro Shields [facility] TESTING) Medical Branch LAB ONLY COVID 2021-03-11 13:18:[address] [facility] CBC WITH DIFF 2021-03-11 13:17:00 Cornelius [facility] FREE T4 2021-03-11 13:17:00 Cornelius [facility] PROTHROMBIN TIME / INR 2021-03-11 13:17:00 Alvaro Shields [facility] IRON PANEL 2021-03-11 13:17:00 Cornelius [facility] COMP. METABOLIC PANEL 2021-03-11 13:15:00 Alvaro Shields [facility] ([id number]) Medical Branch MAGNESIUM 2021-03-11 13:15:00 Cornelius [facility] FREE T3 2021-03-11 13:15:00 Cornelius [facility] FERRITIN SERUM 2021-03-11 13:15:00 Alvaro Shields [facility] ACTIVATED PARTIAL 2021-03-11 10:38:00 Alvaro Shields [facility] HOSPITAL ADMISSION 2021-03-11 05:01:00 Doctor Unassigned, [facility] Plan of Care Planned Activity Planned Date [...] 00:00:00 (1 of 1 - Medical Center [id number] PCV13) [code = PNEUMOCOCCAL 65+ YRS (1 of 1 - [id number] PCV13)] Future Scheduled 2003 PNEUMOCOCCAL 65+ YRS [facility] - Test 00:00:00 (1 of 1 - Medical Center [id number] PCV13) [code = PNEUMOCOCCAL 65+ YRS (1 of 1 - [id number] PCV13)] Future Scheduled 1988 SHINGLES VACCINES (1 [...] Date/Time Type Type Clinicians Facility Department ID 2021-07-26 Outpatient [facility] [id number] [address] [place] 13:28:34 028 [facility] 2021-07-26 Outpatient [facility] [id number] 211 [place] 09:21:59 019 Communi ty [facility]osp[facility] Clinics 2021-07-25 Outpatient [facility] [id number] 210 [place] 17:47:49 914 [facility] 2021-07-21 Outpatient [facility] [id number] 210 [place] 06:26:47 809 Communi ty Hosp[facility] Clinics 2021-07-21 Outpatient [facility] [id number] 210 [place] 03:31:06 803 Communi ty Hosp[facility] Clinics 2021-07-21 Outpatient [facility] [id number] 210 [place] 03:00:01 802 Communi ty Hospita [facility] Clinics 2021-07-21 Outpatient [facility] [id number] 210 [place] 00:37:57 728 Communi ty H[facility] Clinics 2021-03-11 Inpatient U KELY, [facility] [id number] Univers 02:03:00 JOSY [facility] 2020-12-21 Inpatient U RUBI [facility] [id number] Univers 05:34:00 AARON [place] [facility] 2021-07-02 2021-07-02 [facility] [id number] 00:00:00 00:00:00 Dany [id number] Juanpablo [id number] 2021-05-05 2021-05-05 Case Lynne Ramirez 1.2.840.1 [id number] Univers 00:00:00 00:00:00 Management 45885.1.1 i ty of 3.104.2.7 [place] .3.162607 Medica l .8 [place] 2021-04-28 2021-04-28 [facility] Jose Eduardo Valdovinos 1.2.840.9 [id number] Univers 07:31:12 23:59:00 Encounter [facility] 46393.1.1 ity of 3.104.2.7 [place] .3.503502 Medica l .8 Branch 2021-04-13 2021-04-13 [facility] [id number] 00:00:00 00:00:00 Dany [id number] Juanpablo [id number] 2021-04-06 2021-04-06 [facility] [id number] 00:00:00 00:00:00 Dany [id number] Juanpablo [id number] 2021-03-24 2021-03-24 Orders Doctor MIRA 1.2.840.114 [id number] 00:00:00 00:00:00 Only Unassigned, TAMARA [id number] [facility] 4.2.7.2.686 [id number] 2021-03-24 2021-03-24 Orders Doctor 1.2.840.0 [id number] Univers 00:00:00 00:00:00 Only Unassigned, 82454.1.1 ity of [place] 3.104.2.7 [place] .3.348782 Medica l .8 Branch 2021-03-20 2021-03-20 Outpatient YUCHACHOTINO [facility] [id number] [place] 10:54:00 10:54:00 716 Commun i ty Hosp[facility] Clinics 2021-03-20 2021-03-20 Outpatient Leeanna [facility] [id number] 00:00:00 00:00:00 Dany [id number] Juanpablo [id number] 2021-03-18 2021-03-18 Telephone Harrison [facility] 1.2.746.655 [id number] 00:00:00 00:00:00 Pamelavane BENJAMIN 350.1.13.10 CARE 4.2.7.2.686 PAVILLION [id number] 2021-03-18 2021-03-18 Telephone Harrison 1.2.840.9 [id number] Univers 00:00:00 00:00:00 Pamela 07608.1.1 ity of 3.104.2.7 [place] .3.241361 Medica l .8 Branch 2021-03-16 2021-03-16 Transition Doyle Barker 1.2.840.114 [id number] 00:00:00 00:00:00 of Care Chelsey Del Angel 350.1.13.10 [place] 4.2.7.2.686 [id number] 2021-03-16 2021-03-16 Transition Lucero, 1.2.840.6 [id number] Univers 00:00:00 00:00:00 of Care Chelsey 92290.1.1 ity of 3.104.2.7 [place] .3.176927 Medica l .8 Branch 2021-03-11 2021-03-13 [facility] Dacia Syed 1.2.840.114 [id number] 02:03:00 17:36:00 Encounter Josy Mcdonald 350.1.13.10 [facility] 4.2.7.2.686 [id number] 2021-03-11 2021-03-13 [facility], 1.2.840.5 [id number] Univers 02:03:00 17:36:00 Encounter Josy 59022.1.1 it y of 3.104.2.7 [place] .3.870681 Medica l .8 Branch 2021-03-12 2021-03-12 Case LONNIE Serrano [id number] 00:00:00 00:00:00 [facility] 350.1.13.10 CLINICS 4.2.7.2.686 [id number] 2021-03-12 2021-03-12 Case Zach, 1.2.840.7 [id number] Univers 00:00:00 00:00:00 Management Avtar 19672.1.1 i ty of 3.104.2.7 [place] .3.426823 Medica l .8 Branch 2021-02-25 2021-02-25 Outpatient [facility] [id number] [place] 01:36:00 01:36:00 623 Commun i ty [facility] 2021-02-20 2021-02-20 Orders Doctor MEYERS 1.2.840.114 [id number] 00:00:00 00:00:00 Only Unassigned, TAM[place] 350.1.13.10 [facility] 4.2.7.2.686 [id number] 2021-01-22 2021-01-22 Outpatient [facility] [id number] [place] 01:03:00 01:03:00 520 Commun i ty Hosp[facility] Clinics 2021-01-21 2021-01-21 Orders Doctor MIRA 1.2.840.114 [id number] 00:00:00 00:00:00 Only Unassigned, [place]AM[place] 350.1.13.10 [facility] 4.2.7.2.686 [id number] 2021-01-08 2021-01-08 Orders Doctor MIRA 1.2.840.114 [id number] 00:00:00 00:00:00 Only Unassigned, TAM[place] 350.1.13.10 [facility] 4.2.7.2.686 [id number] 2021-01-05 2021-01-05 Transition Doyle Quan 1.2.840.114 [id number] 00:00:00 00:00:00 of Care Todd Del Angel 350.1.13.10 [place] 4.2.7.2.686 [id number] 2020-12-21 2021-01-02 [facility]erson 1.2.8 40.114 [id number] 05:34:00 18:49:00 Encounter Fabrizio Samuels [place] 350.1.13.10 [facility] 4.2.7.2.686 Tiesha Palomino [id number] 2020-12-27 2020-12-27 Surgery Dacia 1.2.840.114 [id number] 14:55:00 16:17:00 Tamara 350.1.13.10 [facility] 4.2.7.2.686 [id number] 2020-12-22 2020-12-22 Surgery [facility] 1.2.583.427 [id number] 10:40:00 11:14:00 ICAL 350.1.13.10 [facility] 4.2.7.2.686 BLDG [id number] 2020-12-19 2020-12-19 Outpatient [facility] 8298 - [place] 11:02:00 11:02:00 416 [facility] 2020-12-19 2020-12-19 Outpatient Leeanna [facility] [id number] 00:00:00 00:00:00 Dany [id number] Juanpablo [id number] 2020-12-18 2020-12-18 Outpatient [facility] [id number] [place] 01:01:00 01:01:00 415 Commun i [facility] Clinics 2020-11-17 2020-11-17 Outpatient [facility] [id number] [place] 04:44:00 04:44:00 315 Commun i ty Hosp[facility] Clinics 2020-11-17 2020-11-17 Outpatient Leeanna [facility] [id number] 00:00:00 00:00:00 Dany [id number] Juanpablo [id number] 2020-11-10 2020-11-10 Outpatient [facility] [id number] [place] 11:28:00 11:28:00 308 Commun i ty Hospita [facility] Clinics 2020-11-10 2020-11-10 Outpatient Iraheta [facility] [id number] 00:00:00 00:00:00 Dany [id number] Juanpablo [id number] 2020-10-30 2020-10-30 Outpatient [facility] [id number] [place] 09:13:00 09:13:00 225 Commun i ty Hosp[facility] Clinics 2020-10-27 2020-10-27 Outpatient [facility] [id number] [place] 02:56:00 02:56:00 222 Commun i ty Hospita [facility] Clinics 2020-10-27 2020-10-27 Outpatient Iraheta, [facility] 0d3da a79-2 00:00:00 00:00:00 Dany [id number] Juanpablo [id number] 2020-10-27 2020-10-27 Outpatient Leeanna [facility] 0d3da b8c-2 00:00:00 00:00:00 Dany [id number] Juanpablo [id number] 2020-10-21 2020-10-21 Outpatient [facility] [id number] -[id number] [place] 11:44:00 11:44:00 [facility] 2020-10-17 2020-10-17 Outpatient [facility] [id number] -[id number] [place] 11:23:00 11:23:00 212 [facility] 2020-10-17 2020-10-17 Outpatient Leeanna [facility] [id number] 1d5-2 00:00:00 00:00:00 Dany [id number] Juanpablo [id number] 2020-10-13 2020-10-13 Outpatient [facility] [id number] -[id number] [place] 11:56:00 11:56:00 208 [facility] 2020-10-06 2020-10-06 Outpatient [facility] [id number] [place] 01:03:00 01:03:00 201 [facility] 2020-09-30 2020-09-30 Outpatient [facility] [id number] -[id number] [place] 02:16:00 02:16:00 126 [facility] 2020-09-26 2020-09-26 Outpatient [facility] [id number] -[id number] [place] 09:12:00 09:12:00 122 [facility] 2020-09-23 2020-09-23 Outpatient [facility] [id number] -[id number] [place] 09:29:00 09:29:00 119 [facility] 2020-09-23 2020-09-23 Outpatient Leeanna [facility] [address]136 6aa-2 00:00:00 00:00:00 Dany [id number] Juanpablo [id number] 2020-09-12 2020-09-12 Outpatient [facility] [id number] -[id number] [place] 12:08:00 12:08:00 [facility] 2020-09-11 2020-09-11 Outpatient [facility] [id number] -[id number] [place] 05:56:00 05:56:00 107 [facility] 2020-09-08 2020-09-08 Outpatient [facility] [id number] -[id number] [place] 10:49:00 10:49:00 104 [facility] 2020-09-08 2020-09-08 Outpatient Iraheta, [facility] 36660 4b3-2 00:00:00 00:00:00 Dany [id number] Juanpablo [id number] 2020-09-01 2020-09-01 Outpatient [facility] [id number] -[id number] [place] 01:03:00 01:03:00 228 [facility] Results Test Description Test Time Test Comments Results Result Comments Source POCT GLUCOSE (AUTOMATED) 2021-03-13 16:52:34 Test Item Value Reference Range Interpretation Comme nts POCT GLU (test code = 7949755991) 152 mg/dL 70-110 H Lab Interpretation (test code = 67947-8) Abnormal [facility] METABOLIC PANEL (NA, K, CL, CO2, GLUCOSE, BUN, CREATININE, CA)2021-03-13 12:03:23 Test Item Value Reference Range Interpretation Comments NA (test code = 139 mmol/L 135-145 0506035402) K (test code = 3.5 mmol/L 3.5-5.0 4333844679) CL (test code = 112 mmol/L 98-108 H 5777651528) CO2 TOTAL (test code = 27 mmol/L 23-31 1107477828) AGAP (test code = <1 2-16 L 3069120386) BUN (test code = 22 mg/dL 7-23 9851341027) GLUCOSE (test code = 125 mg/dL 70-110 H 7183425621) CREATININE (test code = 0.64 mg/dL 0.50-1.04 7059568351) CALCIUM (test code = 7.9 mg/dL 8.6-10.6 L 0632556131) eGFR (test code = mL/min/1.73m2 4604015219) INDRA (test code = INDRA) Association of Glomerular Filtration Rate (GFR) and Staging of Kidney Disease* + --+ --+ ------+| GFR (mL/min/1.73 m2) ?| With Kidney Damage ?| ?Without Kidney Damage+ --------+ --------+ +| ?>90 ?| ?Stage one ?| ? Normal ?+ ---+ ---+ -------+| ?60-89 ?| ?Stage two ?| ? Decreased GFR ? + --+ --+ ------+| ?30-59 ?| ?Stage three ?| ? Stage three ? + --+ --+ ------+| ?15-29 ?| ?Stage four ? | ? Stage four ?+ ---+ ---+ -------+| ?<15 (or dialysis) ? ?| ?Stage five ? | ? Stage five ?+ ---+ ---+ -------+ *Each stage assumes the associated GFR level has been in effect for at least three months. ?Stages 1 to 5, with or without kidney disease, indicate chronic kidney disease. Notes: Determination of stages one and two (with eGFR >59mL/min/1.73 m2) requires estimation of kidney damage for at least three months as defined by structural or functional abnormalities of the kidney, manifested by either:Pathological abnormalities or Markers of kidney damage (including abnormalities in the composition of the blood or urine or abnormalities in imaging tests). Lab Interpretation Abnormal (test code = 85598-5) [facility] WITHOUT [id number] 11:39:33 Test Item Value Reference Range Interpretation Comments WBC (test code = 6690-2) See_Comment L [A utomated message] The system [email or web address] generated this result transmit komal reference range : 4.30 - 11.10 10*3/?L. The reference range was not used to interpret this result as normal/abnormal . RBC (test code = 789-8) See_Comment L [Au tomated message] The system [employer] generated this result transmit komal reference range : 3.93 - 5.25 10* 6/?L. The reference r ming was not used to interpret this result as normal/abnormal . HGB (test code = 718-7) 7.3 g/dL 11.6-15.0 L HCT (test code = 4544-3) 25.0 % 35.7-45.2 L MCH (test code = 785-6) 27.4 pg 25.9-32.8 MCV (test code = 787-2) 94.0 fL 80.6-95.5 MCHC (test code = 786-4) 29.2 g/dL 31.6-35.1 L PLT (test code = 777-3) See_Comment L [Au tomated message] The system [facility] generated this result transmit komal reference range : 166 - 358 10*3/?L. The reference range was not used to interpret this result as normal/abnormal . MPV (test code = 11.1 fL 9.5-12.9 61493-8) RDW-CV (test code = 16.7 % 12.0-15.5 H 788-0) RDW-SD (test code = 56.3 fL 39.0-49.9 H 25463-6) NRBC x10^3 (test code = <0.01 See_Comment [Au tomated message] 6425268853) The system [facility] generated this result transmit komal reference range : 10*3/?L. The reference range was not used to interpret this result as normal/abnormal . NRBC/100 WBC (test code See_Comment [Au tomated message] = 8073171117) The system [facility] generated this result transmit komal reference range : 0.0 - 10.0 /100 WBC s. The reference r ming was not used to interpret this result as normal/abnormal . IPF % (test code = 3510332164) Lab Interpretation (test Abnormal code = 02032-5) [facility]56 Test Item Value Reference Range Interpretation Comments MAGNESIUM (test code = 4342720827) 2.6 mg/dL 1.7-2.4 H Lab Interpretation (test code = Abnormal 07291-9) [facility] WITH [id number] 10:36:35 Test Item Value Reference Range Interpretation Comments WBC (test code = See_Comment L [Automated 6690-2) message] The sy stem which generated this result transmitted reference range : 4.30 - 11.10 10*3/?L. The reference range was not used to interpret this result as normal/abnormal . RBC (test code = See_Comment L [Automated 789-8) message] The sy stem which generated this result transmitted reference range : 3.93 - 5.25 10*6/?L. The reference range was not used to interpret this result as normal/abnormal . HGB (test code = 7.0 g/dL 11.6-15.0 L 718-7) HCT (test code = 23.8 % 35.7-45.2 L 4544-3) MCV (test code = 94.4 fL 80.6-95.5 787-2) MCH (test code = 27.8 pg 25.9-32.8 785-6) MCHC (test code = 29.4 g/dL 31.6-35.1 L 786-4) RDW-SD (test code = 56.6 fL 39.0-49.9 H 74881-5) RDW-CV (test code = 16.4 % 12.0-15.5 H 788-0) PLT (test code = See_Comment L [Automated 777-3) message] The sy stem which generated this result transmitted reference range : 166 - 358 10*3/ ?L. The reference r ming was not used to interpret this result as normal/abnormal . MPV (test code = 11.6 fL 9.5-12.9 60261-1) NRBC/100 WBC (test See_Comment [Automat ed code = 2192069677) message] The system which generated this result transmitted reference range : 0.0 - 10.0 /100 WBCs. The refer ence range was not u sed to interpret th is result as normal/abnormal . NRBC x10^3 (test code <0.01 See_Comment [Auto mated = 6294789189) message] The s ystem which generated this result transmitted reference range : 10*3/?L. The reference range was not used to interpret this result as normal/abnormal . GRAN MAT (NEUT) % 77.8 % (test code = 770-8) IMM GRAN % (test code 0.30 % = 3256522826) LYMPH % (test code = 16.7 % 736-9) MONO % (test code = 4.4 % 5905-5) EOS % (test code = 0.5 % 713-8) BASO % (test code = 0.3 % 706-2) GRAN MAT x10^3(ANC) 2.84 10*3/uL 1.88-7.09 (test code = 9023570049) IMM GRAN x10^3 (test <0.03 0.00-0.06 code = 0909324787) LYMPH x10^3 (test code 0.61 10*3/uL 1.32-3.29 L = 731-0) MONO x10^3 (test code 0.16 10*3/uL 0.33-0.92 L = 742-7) EOS x10^3 (test code = <0.03 0.03-0.39 L 711-2) BASO x10^3 (test code <0.03 0.01-0.07 = 704-7) Lab Interpretation Abnormal (test code = 64671-8) [facility]2021-03-12 05:32:09 Test Item Value Reference Range Interpretation Comments APTT Patient (test code >150 See_Comment HH [Au tomated message] = 3173-2) The system [email or web address] generated this result transmitted ref erence range: 26 - 36 Seconds. The reference range was not used to int erpret this result as normal/abnormal . Lab Interpretation (test Abnormal code = 64232-9) [facility] [id number] 15:29:50 Test Item Value Reference Range Interpretation Comments IRON (test code = 2457104026) 53 ug/dL 50-160 TIBC (test code = 9110705706) 329 ug/dL 250-410 % FE SAT (test code = 8740795006) 16 % 20-50 L Lab Interpretation (test code = Abnormal 53374-2) [facility] [id number] 15:14:27 Test Item Value Reference Range Interpretation Comments FREE T4 (test code = See_Comment [Autom ated message] 4847635273) The system [email or web address] generated this result transmitted ref erence range: 0.78 - 2 .20 ng/dL:. The ref erence range was not u sed to interpret this result as normal/abnor mal. Lab Interpretation (test Normal code = 50834-6) [facility] [id number] 14:53:03 Test Item Value Reference Range Interpretation Comments FERRITIN (test code = 27.3 ng/mL 11.0-264.0 7240897042) INDRA (test code = INDRA) Biotin has been reported to cause a negative bias, interpret results relative to patient's use of biotin. Lab Interpretation (test Normal code = 27369-4) [facility] [id number] 14:31:57 Test Item Value Reference Range Interpretation Comments FREE T3 (test code = 3501376827) 1.71 pg/mL 2.77-5.27 L Lab Interpretation (test code = Abnormal 45098-7) [facility] (65872)2021-03-11 14:26:43 Test Item Value Reference Range Interpretation Comments NA (test code = 141 mmol/L 135-145 8883628578) K (test code = 2.9 mmol/L 3.5-5.0 LL 4607224741) CL (test code = 106 mmol/L 98-108 6208347747) CO2 TOTAL (test code = 33 mmol/L 23-31 H 1464112671) AGAP (test code = 2-16 9614281050) BUN (test code = 14 mg/dL 7-23 0631683590) GLUCOSE (test code = 63 mg/dL 70-110 L 7205413341) CREATININE (test code = 0.53 mg/dL 0.50-1.04 3815923853) TOTAL BILI (test code = 0.5 mg/dL 0.1-1.3 0291312376) CALCIUM (test code = 7.9 mg/dL 8.6-10.6 L 9380701446) T PROTEIN (test code = 5.8 g/dL 6.3-8.2 L 2149506655) ALBUMIN (test code = 2.9 g/dL 3.5-5.0 L 3554070692) ALK PHOS (test code = 33 U/L 34-122 L 6620998915) ALTv (test code = 8 U/L 5-35 1742-6) AST(SGOT) (test code = 26 U/L 13-40 4759108881) eGFR (test code = mL/min/1.73m2 6952210901) INDRA (test code = INDRA) Association of Glomerular Filtration Rate (GFR) and Staging of Kidney Disease* + --+ --+ ------+| GFR (mL/min/1.73 m2) ?| With Kidney Damage ?| ?Without Kidney Damage+ --------+ --------+ +| ?>90 ?| ?Stage one ?| ? Normal ?+ ---+ ---+ -------+| ?60-89 ?| ?Stage two ?| ? Decreased GFR ? + --+ --+ ------+| ?30-59 ?| ?Stage three ?| ? Stage three ? + --+ --+ ------+| ?15-29 ?| ?Stage four ? | ? Stage four ?+ ---+ ---+ -------+| ?<15 (or dialysis) ? ?| ?Stage five ? | ? Stage five ?+ ---+ ---+ -------+ *Each stage assumes the associated GFR level has been in effect for at least three months. ?Stages 1 to 5, with or without kidney disease, indicate chronic kidney disease. Notes: Determination of stages one and two (with eGFR >59mL/min/1.73 m2) requires estimation of kidney damage for at least three months as defined by structural or functional abnormalities of the kidney, manifested by either:Pathological abnormalities or Markers of kidney damage (including abnormalities in the composition of the blood or urine or abnormalities in imaging tests). Lab Interpretation Abnormal (test code = 67224-2) [facility] / [id number] 13:40:32 Test Item Value Reference Range Interpretation Comments PROTIME PATIENT (test See_Comment H [Auto mated message] code = 5964-2) The system [employer] generated this result transmitted ref erence range: 10.1 - 1 2.6 Seconds. The reference range was not used to int erpret this result as normal/abnormal . INR (test code = 6301-6) Nor mal INR <1.1; Warfarin Therap eutic range 2.0 to 3. 0 or 2.5 to 3.5, dep ending upon the indica tions. Lab Interpretation (test Abnormal code = 15205-5) [facility]/ [id number] 14:50:00 Test Item Value Reference Range Interpretation Comments COLOR (BEAKER) (test code = Yellow 470) CLARITY (BEAKER) (test code = Hazy 469) SPECIFIC GRAVITY UA (BEAKER) 1.019 1.001-1.035 (test code = 468) PH UA (BEAKER) (test code = 6.0 5.0-8.0 467) PROTEIN UA (BEAKER) (test code Negative Negative = 464) GLUCOSE UA (BEAKER) (test code Negative Negative = 365) KETONES UA (BEAKER) (test code Negative Negative = 371) BILIRUBIN UA (BEAKER) (test Negative Negative code = 462) BLOOD UA (BEAKER) (test code = Negative Negative 461) NITRITE UA (BEAKER) (test code Negative Negative = 465) LEUKOCYTE ESTERASE UA (BEAKER) Large Negative A (test code = 466) UROBILINOGEN UA (BEAKER) (test 0.2 mg/dL 0.2-1.0 code = 463) RBC UA (BEAKER) (test code = 9 /HPF 519) WBC UA (BEAKER) (test code = 17 /HPF 520) MUCUS (BEAKER) (test code = Rare 1574) SQUAMOUS EPITHELIAL (BEAKER) 11 /HPF (test code = 516) AMORPHOUS CRYSTALS (BEAKER) Rare (test code = 1584) SOURCE(BEAKER) (test code = Urine, Voided 5490) [id number] 13:11:00 Test Item Value Reference Range Interpretation Comments LIPASE (BEAKER) (test code = 749) 45 U/L 8-78 BASIC METABOLIC [id number] 13:11:00 Test Item Value Reference Range Interpretation [...] 697) EGFR (BEAKER) (test 82 mL/min/1.73 ESTIMA KOMAL GFR IS code = 1092) sq m NOT ACCURATE CREATININE CLEARANCE IN PREDICTING GLOMERULAR FILTRATION RATE . ESTIMATED GFR I S NOT APPLICABLE FOR DIALYSIS PATIEN TS. HEPATIC FUNCTION [id number] 13:11:00 Test Item Value Reference Range Interpretation [...] (test code = 14 U/L 6-55 347) [id number] 13:02:00 Test Item Value Reference Range Interpretation [...] PERCENT (BEAKER) (test code = 2801) TISSUE [id number] 13:06:00Surgical Pathology Report Case: [id number] Authorizing Provider: Luiz Hayes Collected: 03/14/2018 1115 Ordering Location: [facility] Endoscopy Received: 03/14/2018 1351 Services Pathologist: Mara Barboza MD Specimens: A) -Polyp, Duodenum B) - Stomach, Antrum, bx C) - Biopsy, Gastric, gastric body D) - Biopsy, Esophagus, random THIS ADDENDUM IS ISSUED TO REPORT THE RESULT OF IMMUNOHISTOCHEMICAL STUDY FOR HELICOBACTER PYLORI OM SPECIMEN B: - NEGATIVE CPT CODE: 08063Byfdrjbl electronically signed by Mara Barboza MD on [...] MALIGNANCY SEEN Signing Pathologist Direct Phone Line: [phone] signed by Mara Barboza MD on 03/17/2018 at 10:35 [id number] X 4; 57806 X 2A. Polyp, duodenum. B. Stomach antrum. [...] the diagnostic report above:AMBER X 2 POCT-GLUCOSE [id number] 12:41:00 Test Item Value Reference Range Interpretation Comments POC-GLUCOSE METER 75 mg/dL 70-110 TESTED AT [place] [address] ([facility]) (test code = [facility] [address] 1538) BLOOD [id number] 06:00:00 Test Item Value Reference Range Interpretation Comments CULTURE (BEAKER) (test No growth in 5 days code = 1095) BLOOD [id number] 06:00:00 Test Item Value Reference Range Interpretation Comments CULTURE (BEAKER) (test No growth in 5 days code = 1095) POCT-GLUCOSE [id number] 12:32:00 Test Item Value Reference Range Interpretation Comments POC-GLUCOSE METER 217 mg/dL 70-110 H TESTED AT [place] [address] ([facility]) (test code = [facility] 1538) [address] POCT-GLUCOSE [id number] 08:36:00 Test Item Value Reference Range Interpretation Comments POC-GLUCOSE METER 92 mg/dL 70-110 TESTED AT [place] [id number] ([facility]) (test code = [facility] [address] 1538) COMPREHENSIVE METABOLIC [id number] 04:59:00 Test Item Value Reference Range Interpretation [...] 347) EGFR (BEAKER) (test 81 mL/min/1.73 ESTIMA KOMAL GFR IS code = 1092) sq m NOT ACCURATE CREATININE CLEARANCE IN PREDICTING GLOMERULAR FILTRATION RATE . ESTIMATED GFR I S NOT APPLICABLE FOR DIALYSIS PATIEN TS. [id number] 04:50:00 Test Item Value Reference Range Interpretation Comments MAGNESIUM (BEAKER) (test code = 1.7 mg/dL 1.6-2.6 627) PROTHROMBIN [id number] 04:35:00 Test Item Value Reference Range Interpretation [...] EOSINOPHILS ABSOLUTE COUNT 0.06 K/ L 0.04-0.36 ([facility]) (test code = 416) BASOPHILS ABSOLUTE COUNT (AKER) 0.02 K/ L 0.01-0.08 (test code = 417) IMMATURE GRANULOCYTES-RELATIVE 1 % 0-1 PERCENT ([facility]) (test code = 2801) POCT-GLUCOSE [id number] 22:13:00 Test Item Value Reference Range Interpretation Comments POC-GLUCOSE METER 194 mg/dL 70-110 H TESTED AT [place] [address] ([facility]) (test code = [facility] 1538) [address] POCT-GLUCOSE [id number] 18:14:00 Test Item Value Reference Range Interpretation Comments POC-GLUCOSE METER 195 mg/dL 70-110 H TESTED AT [place] [address] ([facility]) (test code = [facility] 1538) [address] POCT-GLUCOSE [id number] 12:20:00 Test Item Value Reference Range Interpretation Comments POC-GLUCOSE METER 224 mg/dL 70-110 H TESTED AT [place] [address] ([facility]) (test code = [facility] 1538) [address] [id number] 08:55:00 Test Item Value Reference Range Interpretation Comments LIPASE ([facility]) (test code = 749) 471 U/L 8-78 H POCT-GLUCOSE [id number] 08:12:00 Test Item Value Reference Range Interpretation Comments POC-GLUCOSE METER 128 mg/dL 70-110 H TESTED AT [place] [address] ([facility]) (test code = [facility] 1538) [address] [id number] 04:12:00 Test Item Value Reference Range Interpretation Comments T3 TOTAL (BEAKER) (test code = 656) 41 ng/dL 48-159 L T3, [id number] 04:11:00 Test Item Value Reference Range Interpretation Comments T3 FREE ([facility]) (test code = 908) 1.31 pg/mL 1.71-3.71 L COMPREHENSIVE METABOLIC [id number] 04:01:00 Test Item Value Reference Range Interpretation Comments TOTAL PROTEIN 4.8 gm/dL 6.0-8.3 L (BEAKER) (test code = 770) ALBUMIN ([facility]) 2.8 g/dL 3.5-5.0 L (test code [...] 347) EGFR (BEAKER) (test 77 mL/min/1.73 ESTIMA KOMAL GFR IS code = 1092) sq m NOT ACCURATE CREATININE CLEARANCE IN PREDICTING GLOMERULAR FILTRATION RATE . ESTIMATED GFR I S NOT APPLICABLE FOR DIALYSIS PATIEN TS. [id number] 03:54:00 Test Item Value Reference Range Interpretation Comments MAGNESIUM (BEAKER) (test code = 1.7 mg/dL 1.6-2.6 627) PROTHROMBIN [id number] 03:53:00 Test Item Value Reference Range Interpretation [...] PERCENT (BEAKER) (test code = 2801) POCT-GLUCOSE [id number] 22:34:00 Test Item Value Reference Range Interpretation Comments POC-GLUCOSE METER 252 mg/dL 70-[address] [facility] [address] ([facility] ([facility] 1538) [address] [id number] 19:36:00 Test Item Value Reference Range Interpretation Comments MAGNESIUM (BEAKER) (test code = 1.6 mg/dL 1.6-2.6 627) BASIC METABOLIC [id number] 19:36:00 Test Item Value Reference Range Interpretation [...] 697) EGFR (BEAKER) (test 76 mL/min/1.73 ESTIMA KOMAL GFR IS code = 1092) sq m NOT ACCURATE CREATININE CLEARANCE IN PREDICTING GLOMERULAR FILTRATION RATE . ESTIMATED GFR I S NOT APPLICABLE FOR DIALYSIS PATIEN TS. URINE [id number] 11:51:00 Test Item Value Reference Range Interpretation Comments CULTURE (BEAKER) (test code = 1095) No growth POCT-GLUCOSE [id number] 11:42:00 Test Item Value Reference Range Interpretation Comments POC-GLUCOSE METER 205 mg/dL 70-[address] [facility] [address] ([facility]) (test code = [facility] 1538) [address] POCT-GLUCOSE [id number] 08:08:00 Test Item Value Reference Range Interpretation Comments POC-GLUCOSE METER 119 mg/dL 70-110 H TESTED AT [place] [address] ([facility]) (test code = [facility] Mikki [facility] 1538) [address] C. DIFFICILE GDH [id number] 07:40:00 Test Item Value Reference Range Interpretation Comments CDT TOXIN (test code Negative Negative = 2597268772) CDT GDH ANTIGEN Positive Negative A C. difficile present but (test code = toxin not detec komal. 9065527679) Indicates colon ization with non-toxige lizbeth strain or level of tox in below detectable leve ls. No need for enteri c isolation. Duran atment is rarely needed ( only when strong clinical suspicion for Clostridium difficile infection) Testing performed by [employer] Rapid Cassette Assay. For GDH, published sensitivity of the assay is 98.7% compared to cytotoxicity testing. For Toxin AB, published sensitivity is 87.8% and specificity 99.4% compared to cytotoxicity testing.Verification of kit performance was done by the [facility] Microbiology Lab prior to clinical use.POCT-GLUCOSE [id number] 06:37:00 Test Item Value Reference Range Interpretation Comments POC-GLUCOSE METER 141 mg/dL 70-110 H TESTED AT [place] [address] ([facility]) (test code = [facility] 1538) [address] COMPREHENSIVE METABOLIC [id number] 04:48:00 Test Item Value Reference Range Interpretation [...] 347) EGFR (BEAKER) (test 76 mL/min/1.73 ESTIMA KOMAL GFR IS code = 1092) sq m NOT ACCURATE CREATININE CLEARANCE IN PREDICTING GLOMERULAR FILTRATION RATE . ESTIMATED GFR I S NOT APPLICABLE FOR DIALYSIS PATIEN TS. PROTHROMBIN [id number] 04:40:00 Test Item Value Reference Range Interpretation Comments PROTIME (BEAKER) (test code = 23.8 seconds 11.7-14.7 H 759) INR (BEAKER) (test code = 370) 2.1 <=5.9 RECOMMENDED COUMADIN/WARFARIN INR THERAPY RANGESSTANDARD DOSE: 2.0 - 3.0 Includes: PROPHYLAXIS forvenous thrombosis, systemic embolization; TREATMENT for venous thrombosis and/or pulmonary embolus.HIGH RISK: Target INR is 2.5-3.5 for patients with mechanical heart valves.While on warfarin.[id number] 04:29:00 Test Item Value Reference Range Interpretation Comments MAGNESIUM (BEAKER) (test code = 2.0 mg/dL 1.6-2.6 627) CBC W/PLT COUNT & AUTO [id number] 04:11:00 Test Item Value Reference Range Interpretation [...] PERCENT (BEAKER) (test code = 2801) POCT-GLUCOSE [id number] 22:19:00 Test Item Value Reference Range Interpretation Comments POC-GLUCOSE METER 266 mg/dL 70-[address] [facility] 6720 (BEAKER) (test code = MICAH CHANG 1538) [address] [id number] 17:54:00 Test Item Value Reference Range Interpretation Comments POTASSIUM (BEAKER) (test code = 4.2 meq/L 3.5-5.1 379) [id number] 17:23:00 Test Item Value Reference Range Interpretation Comments MAGNESIUM (BEAKER) (test code = 1.7 mg/dL 1.6-2.6 627) POCT-GLUCOSE [id number] 12:41:00 Test Item Value Reference Range Interpretation Comments POC-GLUCOSE METER 111 mg/dL 70-[address] [facility] 6720 (BEAKER) (test code = MICAH Kaye [place] 1538) [id number] 12:40:00 Test Item Value Reference Range Interpretation Comments POTASSIUM (BEAKER) (test code = 3.5 meq/L 3.5-5.1 379) POCT-GLUCOSE [id number] 10:05:00 Test Item Value Reference Range Interpretation Comments POC-GLUCOSE METER 94 mg/dL 70-[address] [facility] 6720 (BEAKER) (test code = MICAH Kaye [facility] [address] 1538) COMPREHENSIVE METABOLIC [id number] 05:47:00 Test Item Value Reference Range Interpretation [...] 347) EGFR (BEAKER) (test 81 mL/min/1.73 ESTIMA KOMAL GFR IS code = 1092) sq m NOT ACCURATE CREATININE CLEARANCE IN PREDICTING GLOMERULAR FILTRATION RATE . ESTIMATED GFR I S NOT APPLICABLE FOR DIALYSIS PATIEN TS. [id number] 05:44:00 Test Item Value Reference Range Interpretation Comments MAGNESIUM (BEAKER) (test code = 2.0 mg/dL 1.6-2.6 627) PROTHROMBIN [id number] 05:37:00 Test Item Value Reference Range Interpretation Comments PROTIME (BEAKER) (test code = 24.0 seconds 11.7-14.7 H 759) INR (BEAKER) (test code = 370) 2.2 <=5.9 RECOMMENDED COUMADIN/WARFARIN INR THERAPY RANGESSTANDARD DOSE: 2.0 - 3.0 Includes: PROPHYLAXIS forvenous thrombosis, systemic embolization; TREATMENT for venous thrombosis and/or pulmonary embolus.HIGH RISK: Target INR is 2.5-3.5 for patients with mechanical heart valves.PROTHROMBIN [id number] 05:36:00 Test Item Value Reference Range Interpretation [...] valves.While on warfarin.CBC W/PLT COUNT & AUTO [id number] 05:35:00 Test Item Value Reference Range Interpretation [...] PERCENT (BEAKER) (test code = 2801) POCT-GLUCOSE [id number] 23:56:00 Test Item Value Reference Range Interpretation Comments POC-GLUCOSE METER 105 mg/dL 70-[address] [facility] 6720 (BEAKER) (test code = MICAH [place] 1538) [id number] TROPONIN [id number] 13:02:00 Test Item Value Reference Range Interpretation [...] 0-100 H (test code = 700) POCT-GLUCOSE [id number] 12:18:00 Test Item Value Reference Range Interpretation Comments POC-GLUCOSE METER 175 mg/dL 70-[address] [facility] 6720 (MATTHEW) (test code = MICAH [place] 1538) [id number] U/S, ABDOMINAL, [id number] 10:23:00Abdomen limited area? Add comment if clarification [...] evidence of cholelithiasis or cholecystitis. Signed: Bouchra Coffey MDReport Verified Date/Time: 01/14/2018 10:23:02 Reading Location: [address] Ortho Consult Reading Room T4, [id number] 08:42:00 Test Item Value Reference Range Interpretation Comments FREE T4 ([facility]) (test code = 655) 0.83 ng/dL 0.70-1.48 POCT-GLUCOSE [id number] 08:37:00 Test Item Value Reference Range Interpretation Comments POC-GLUCOSE METER 161 mg/dL 70-[address] [facility] 6720 ([facility]) (test code = [facility] 1538) [id number] TSH/FREE T4 IF [id number] 08:05:00 Test Item Value Reference Range Interpretation Comments THYROID STIMULATING HORMONE 0.02 uIU/mL 0.35-4.94 L ([facility]) (test code = 772) VITAMIN B12 AND [id number] 07:42:00 Test Item Value Reference Range Interpretation Comments VITAMIN B12 ([facility]) (test code = 1276 pg/mL 213-816 H 774) FOLATE ([facility]) (test code = 362) 8.8 ng/mL >=7.0 LIPID [id number] 07:14:00 Test Item Value Reference Range Interpretation Comments TRIGLYCERIDES ([employer]) (test code = 171 mg/dL 540) CHOLESTEROL ([facility]) (test code = 123 mg/dL 631) HDL CHOLESTEROL ([facility]) (test code 25 mg/dL = 976) LDL CHOLESTEROL CALCULATED ([facility]) 64 mg/dL (test code = 633) Triglyceride Reference Range: Low Risk <150 Borderline 150-199 High Risk 200-499 Very High Risk >=500Cholesterol Reference Range: Low Risk <200 Borderline 200-239 High Risk >240HDL Cholesterol Reference Range: Low Risk >=60 High Risk <40LDL Cholesterol Reference Range: Optimal <100 Near Optimal 100-129 Borderline 130-159 High 160-189 Very High >=190TROPONIN [id number] 07:12:00 Test Item Value Reference Range Interpretation [...] acute neurological disease, and persistent tachyarrhythmia.URINALYSIS W/ [id number] 06:35:00 Test Item Value Reference Range Interpretation [...] 517) SOURCE(BEAKER) (test code = Urine, [place] 3676) [id number] 06:07:00 Test Item Value Reference Range Interpretation Comments MAGNESIUM (BEAKER) (test code = 1.8 mg/dL 1.6-2.6 627) [id number] 05:32:00 Test Item Value Reference Range Interpretation Comments MAGNESIUM (BEAKER) (test code = 2.5 mg/dL 1.6-2.6 627) COMPREHENSIVE METABOLIC [id number] 05:32:00 Test Item Value Reference Range Interpretation [...] 347) EGFR (BEAKER) (test 79 mL/min/1.73 ESTIMA KOMAL GFR IS code = 1092) sq m NOT ACCURATE CREATININE CLEARANCE IN PREDICTING GLOMERULAR FILTRATION RATE . ESTIMATED GFR I S NOT APPLICABLE FOR DIALYSIS PATIEN TS. PROTHROMBIN [id number] 05:10:00 Test Item Value Reference Range Interpretation [...] 0-1 PERCENT (BEAKER) (test code = 2801) [id number] 02:52:00 Test Item Value Reference Range Interpretation Comments PROCALCITONIN (BEAKER) (test code 0.41 ng/mL <0.05 H = 3036) SEPSIS RISK (ng/mL)Low: 0.05-0.50Intermediate: 0.51-2.00High: >=2.01LACTIC ACID, VENOUS, WHOLE [id number] 02:06:00 Test Item Value Reference Range Interpretation Comments LACTATE BLOOD VENOUS 1.3 mmol/L 0.5-2.2 Specime n slightly (2) (BEAKER) (test hemolyzed code = 2872) Effective 01/07/2016: Units/Reference Range ChangeNew: 0.5-2.2 mmol/L Previous: 5-20 mg/dLCOMPREHENSIVE METABOLIC [id number] 02:06:00 Test Item Value Reference Range Interpretation [...] 347) EGFR (BEAKER) (test 81 mL/min/1.73 ESTIMA KOMAL GFR IS code = 1092) sq m NOT ACCURATE CREATININE CLEARANCE IN PREDICTING GLOMERULAR FILTRATION RATE . ESTIMATED GFR I S NOT APPLICABLE FOR DIALYSIS PATIEN TS. [id number] 02:04:00 Test Item Value Reference Range Interpretation Comments LIPASE (BEAKER) (test code = 749) 730 U/L 8-78 H [id number] 02:04:00 Test Item Value Reference Range Interpretation Comments AMYLASE (BEAKER) (test code = 349) 226 U/L 25-125 H PROTHROMBIN [id number] 01:45:00 Test Item Value Reference Range Interpretation Comments PROTIME (BEAKER) (test code = 23.9 seconds 11.7-14.7 H 759) INR (BEAKER) (test code = 370) 2.1 <=5.9 RECOMMENDED COUMADIN/WARFARIN INR THERAPY RANGESSTANDARD DOSE: 2.0 - 3.0 Includes: PROPHYLAXIS forvenous thrombosis, systemic embolization; TREATMENT for venous thrombosis and/or pulmonary embolus.HIGH RISK: Target INR is 2.5-3.5 for patients with mechanical heart valves.[id number] 01:45:00 Test Item Value Reference Range Interpretation Comments PARTIAL THROMBOPLASTIN TIME 32.4 seconds 22.5-36.0 (BEAKER) (test code = 760) CBC W/PLT COUNT & AUTO [id number] 01:38:00 Test Item Value Reference Range Interpretation [...] % 0-1 PERCENT (BEAKER) (test code = 8950)
[2021-08-07 16:08] LABS: Absolute Lymphocytes (CBC) 0.7 K/uL (0.7-4.9); Basophils % 0.2 % (0-1.3); Hematocrit 24.4 % (36.0-45.0); Lymphocytes % 12.3 % (15.3-44.8); MPV 7.9 fL (7.6-11.3); RBC Red Blood Cell Count 3.01 M/uL (3.86-4.86)
[2021-08-07 16:11] LABS: Protime INR 1.21
[2021-08-07 16:29] LABS: ALT/SGPT 17 U/L (12-78); AST/SGOT 12 U/L (15-37); Albumin 2.9 g/dL (3.4-5.0); Alkaline Phosphatase 47 U/L (45-117); BUN Blood Urea Nitrogen 18 mg/dL (7-18); Bicarbonate 27 mmol/L (21-32); Bilirubin Direct 0.2 mg/dL (0-0.2); Bilirubin Total 0.7 mg/dL (0.2-1.0); Glucose Level 116 mg/dL (74-106); NT PRO-BNP 1088 pg/mL (<450); Potassium 3.3 mmol/L (3.5-5.1); Protein, Total 6.1 g/dL (6.4-8.2); Sodium Level 148 mmol/L (136-145); Troponin (Emerg Dept Use Only) < 0.02 ng/mL (0.0-0.045)
[2021-08-07 16:37] LABS: Urine Blood Negative (Negative); Urine Glucose Negative (Negative); Urine Protein Negative (Negative); Urine Specific Gravity >=1.030 (1.005-1.030)
[2021-08-07 16:49] LABS: Urine Bacteria <20 /HPF (<20); Urine RBC <5 /HPF (NONE SEEN)
--- NOTE | 2021-08-07 16:55 | RAD REPORT ---
EXAM DESCRIPTION: RAD - Chest Single View - 08/07/2021 4:38 pm CLINICAL HISTORY: lower extremity swelling COMPARISON: April 19 TECHNIQUE: AP portable chest image was obtained 08/07/2021 4:38 pm . FINDINGS: No peripheral mass or consolidation. Mildly prominent interstitial pattern matches compari son. Cardiomegaly is present increased over comparison. Central vasculature slightly more prominent. No measurable pleural effusion and no pneumothorax. No acute bony abnormality seen. No acute aortic findings suspected. IMPRESSION: Mild CHF/volume overload findings.
--- NOTE | 2021-08-07 18:31 | RAD REPORT ---
EXAM DESCRIPTION: CT - Abdomen Pelvis W Contrast - 08/07/2021 6:11 pm CLINICAL HISTORY: ABD PAIN COMPARISON: Abdomen Pelvis W Contrast dated 04/19/2021 TECHNIQUE: Biphasic, helical CT imaging of the abdomen and pelvis was performed following 100 ml non -ionic IV contrast. No oral contrast given. All CT scans are performed using dose optimization technique as appropriate and may include automated exposure control or mA/KV adjustment according to patient size. FINDINGS: No suspicious findings in the lung bases. The liver, spleen, and pancreas show no suspicious findings. Several liver cysts are present similar to comparison. Gallbladder and biliary tree are also without suspicious finding. Symmetric renal function is seen with no hydronephrosis or suspicious renal mass. No pyelonephritis o r acute parenchymal process. Urinary bladder shows no suspicious finding. Taylor catheter is in place. No adrenal abnormalities. Uterus is absent. Ovaries are absent or atrophic. Pelvic floor laxity is p resent. No dilated bowel loops or bowel wall thickening. Diverticulosis is minimal. No free air, free fluid o r inflammatory stranding. No hernia, mass or bulky lymphadenopathy. No suspicious bony findings. Advanced degenerative changes are present. Severe spinal stenosis presen t at L4-5 with moderately severe stenosis at L3-4. L3 and L4 vertebroplasty changes are present. IVC filter is in place. IMPRESSION: Contrast enhanced CT abdomen and pelvis showing no acute or emergent finding. Nonacute findings detailed in the body of the report.
--- NOTE | 2021-08-07 19:19 | ER ---
Nurse's Notes [facility] Name: Emelia Payan Age: 81 yrs Sex: Female : 1940 Arrival Date: 08/07/2021 Time: 14:45 Bed 19 Private MD: Diagnosis: GI Bleed/ Gastrointestinal hemorrhage, unspecified;Anemia, unspecified;Unspecified combined systolic (congestive) and diastolic (congestive) heart failure Presentation: 08/07 14:48 Chief complaint: EMS states: called out for abdominal discomfort and general malaise. iw Coronavirus screen: At this time, the client does not indicate any symptoms associated with coronavirus-19. Ebola Screen: Patient negative for fever greater than or equal to 101.5 degrees Fahrenheit, and additional compatible Ebola Virus Disease symptoms Patient denies exposure to infectious person. Patient denies travel to an Ebola-affected area in the 21 days before illness onset. No symptoms or risks identified at this time. Initial Sepsis Screen: Does the patient meet any 2 criteria? No. Patient's initial sepsis screen is negative. Does the patient have a suspected source of infection? No. Patient's initial sepsis screen is negative. Risk Assessment: Do you want to hurt yourself or someone else? Patient reports no desire to harm self or others. Onset of symptoms was August 07, 2021. 14:48 Method Of Arrival: EMS: [facility] iw 14:48 Acuity: EDIS 3 iw Triage Assessment: 15:00 General: Appears in no apparent distress. comfortable, obese, Behavior is cooperative, bp appropriate for age, flat. Pain: Complains of pain in abdomen. EENT: No deficits noted. No signs and/or symptoms were reported regarding the EENT system. Neuro: Reports weakness GENERALIZED. Cardiovascular: No deficits noted. Respiratory: No deficits noted. GI: Reports lower abdominal pain, nausea. : Reports urinary frequency. Derm: No deficits noted. Musculoskeletal: Reports weakness in GENERALIZED. Historical: - Allergies: 14:49 Bactrim; iw 14:49 Cipro; iw 14:49 Xarelto; iw 14:49 Zosyn; iw - Home Meds: 14:49 amlodipine 5 mg tab 2 tabs once daily [Active]; atorvastatin 40 mg Oral tab 1 tab once iw daily [Active]; clonazepam 0.5 mg Oral tab 1 tab as needed [Active]; Dexilant 60 mg Oral CpDB 1 cap once daily [Active]; docusate sodium 100 mg Oral cap 1 cap once daily [Active]; Eliquis 2.5 mg Oral tab 1 tab 2 times per day [Active]; fenofibrate 145 MG Oral 1 tab once daily [Active]; glipizide 2.5 mg Oral tr24 1 tabs once daily [Active]; Humatrope injection once daily [Active]; hydrocortisone 20 mg Oral tab 1.5 tabs 2 times per day [Active]; isosorbide dinitrate 30 mg Oral tab 1 tab [Active]; Klor-Con 10 10 mEq Oral TbER 1 tab once daily [Active]; levothyroxine 112 mcg tab 1 tab once daily [Active]; liothyronine 5 mcg Oral tab 1 tab once daily [Active]; Losartan potassium 100 mg 1 tab daily [Active]; methscopolamine 5 mg Oral tab 1 tab daily [Active]; mirtazapine 15 mg Oral tab 1 tab once daily [Active]; Omnitrope 5 mg/1.5 mL (3.3 mg/mL) subcutaneous crtg once daily [Active]; potassium chloride 20 mEq Oral TbER 1 tab once daily [Active]; Protonix 40 mg Oral TbEC 2 tabs once daily [Active]; sotalol 160 mg Oral tab 1 tab 2 times per day [Active]; tramadol 50 mg Oral tab 1 tab every 4 hours [Active]; vit B comp-vit [id number] Oral [Active]; Vitamin C 500 mg Oral tab daily [Active]; Vitamin D3 50,000 units Oral tab twice a day [Active]; warfarin 2 mg Oral tab 1 tab once daily [Active]; zinc sulfate 50 mg zinc (220 mg) Oral tab daily [Active]; - PMHx: 14:49 adrenal insuficiency; Anxiety; Atrial Fib; CHF; CVA; Diabetes - IDDM; DVT; iw Hyperlipidemia; Hypertension; Hypothyroidism; L groin blood clot; lymphedema; Pancreatitis; - PSHx: 14:49 filter; iw - Immunization history:: Adult Immunizations unknown. - Social history:: Smoking status: unknown. Screenin:17 Abuse screen: Denies threats or abuse. Denies injuries from another. Nutritional bp screening: No deficits noted. Tuberculosis screening: No symptoms or risk factors identified. Fall Risk None identified. Assessment: 15:00 General: SEE TRIAGE NOTE. bp 16:17 Reassessment: No changes from previously documented assessment. Patient and/or family bp updated on plan of care and expected duration. Pain level reassessed. KING PLACED WITHOUT DIFFICULTY. RESULTS PENDING. 17:15 Reassessment: No changes from previously documented assessment. Patient and/or family bp updated on plan of care and expected duration. Pain level reassessed. PROVIDER AT B/S FOR RE-EVAL. 18:00 Reassessment: No changes from previously documented assessment. Patient and/or family bp updated on plan of care and expected duration. Pain level reassessed. PT TO CT. NEW PIV PLACED. 21:00 GI: Guarding noted X 4 quads. mr2 Vital Signs: 15:07 BP 161 / 62; Pulse 67; Resp 18; Temp 98.5; Pulse Ox 100% on R/A; bp 16:16 BP 158 / 63; Pulse 70; Resp 16; Pulse Ox 100% ; bp 17:00 BP 163 / 63; Pulse 78; Resp 17; Pulse Ox 100% ; bp 18:00 BP 175 / 63; Pulse 65; Resp 15; Pulse Ox 100% ; bp 22:25 BP 140 / 60; Pulse 67; Resp 17; Temp 98.3; Pulse Ox 99% on R/A; mr2 ED Course: 14:45 Patient arrived in ED. iw 14:49 Triage completed. iw 14:51 Arm band placed on. iw 14:56 Bartolo Hays, ODILON is Primary Nurse. bp 15:12 Jose Elias Gamboa PA is PHCP. cp 15:12 Adan Bolden MD is Attending Physician. cp 15:17 Patient has correct armband on for positive identification. Bed in low position. Call bp light in reach. Side rails up X2. 16:03 Inserted saline lock: 20 gauge in left antecubital area, using aseptic technique. kv1 16:03 Initial lab(s) drawn, by me, sent to lab. First set of blood cultures drawn. kv1 16:38 XRAY Chest (1 view) In Process Unspecified. EDMS 18:09 Inserted saline lock: 20 gauge in right antecubital area, using aseptic technique. dh4 18:11 CT Abd/Pelvis - IV Contrast Only In Process Unspecified. EDMS 19:17 Jere Sharma MD is Hospitalizing Provider. cp 19:51 COVID-19 SARS RT PCR (Document "Date of Onset" if Symptomatic) Sent. bp 19:53 Primary Nurse role handed off by aBrtolo Hays RN mw2 19:59 Bartolo Hays, ODILON is Primary Nurse. bp 20:00 COVID swab sent to lab. mw2 21:00 No provider procedures requiring assistance completed. Patient admitted, IV remains in mr2 place. 21:15 Attending Physician role handed off by Adan Bolden MD ld1 21:15 Primary Nurse role handed off by Bartolo Hays RN ld1 22:20 Daniel Engle RN is Primary Nurse. mr2 23:47 Primary Nurse role handed off by Daniel Engle RN mw2 23:48 Jose Elias Marquez MD is Attending Physician. [facility] 23:48 Adan Bolden MD is Attending Physician. cp Administered Medications: 17:15 Drug: Lasix (furosemide) 20 mg Route: IVP; Site: right antecubital; bp 18:10 Follow up: Response: No adverse reaction bp 19:41 Drug: ProTONIX (pantoprazole) 40 mg Route: IVP; Site: left antecubital; bp 19:41 Drug: ProTONIX (pantoprazole) 8 mg/hr Route: IV; Rate: 25 ml/hr; Site: left antecubital;bp 20:13 Drug: morphine 2 mg Route: IVP; Site: left antecubital; mr2 Outcome: 19:17 Decision to Hospitalize by Provider. cp 21:00 Admitted to Med/surg accompanied by nurse, via wheelchair. mr2 21:00 Condition: stable 21:00 Instructed on the need for admit. 21:14 Patient left the ED. ld1 23:47 Patient left the ED. mw2 23:53 Patient left the ED. ld1 Signatures: Dispatcher [employer] EDMS Jose Elias Marquez MD MD cha Williams, Irene RN Jose Elias Benson PA PA cp Bartolo Hays, ODILON RN Hermelindo Shin mw2 Armando Miner 4 Susana Sorto RN RN ld1 Daniel Engle RN RN mr2 Joseph Galindo Corrections: (The following items were deleted from the chart) 15:45 15:07 BP 161 / 62; Pulse 67bpm; Resp 18bpm; Pulse Ox 100% RA; Temp 98.5F; iw bp
--- NOTE | 2021-08-07 19:19 | EDPHYS ---
Physician Documentation [facility] Name: Emelia Payan Age: 81 yrs Sex: Female : 1940 Arrival Date: 08/07/2021 Time: 14:45 Bed 19 Private MD: ED Physician Adan Bolden HPI: 08/07 15:40 This 81 yrs old Female presents to ER via EMS with complaints of Abdominal Pain, cp malaise. 15:40 The patient presents with abdominal pain in the lower abdomen. cp 15:40 Onset: The symptoms/episode began/occurred gradually. cp 15:40 The symptoms do not radiate. Associated signs and symptoms: Pertinent positives: cp dysuria, fatigue, malaise, general weakness, Pertinent negatives: diarrhea, fever. The symptoms are described as achy. Historical: - Allergies: 14:49 Bactrim; iw 14:49 Cipro; iw 14:49 Xarelto; iw 14:49 Zosyn; iw - Home Meds: 14:49 amlodipine 5 mg tab 2 tabs once daily [Active]; atorvastatin 40 mg Oral tab 1 tab once iw daily [Active]; clonazepam 0.5 mg Oral tab 1 tab as needed [Active]; Dexilant 60 mg Oral CpDB 1 cap once daily [Active]; docusate sodium 100 mg Oral cap 1 cap once daily [Active]; Eliquis 2.5 mg Oral tab 1 tab 2 times per day [Active]; fenofibrate 145 MG Oral 1 tab once daily [Active]; glipizide 2.5 mg Oral tr24 1 tabs once daily [Active]; Humatrope injection once daily [Active]; hydrocortisone 20 mg Oral tab 1.5 tabs 2 times per day [Active]; isosorbide dinitrate 30 mg Oral tab 1 tab [Active]; Klor-Con 10 10 mEq Oral TbER 1 tab once daily [Active]; levothyroxine 112 mcg tab 1 tab once daily [Active]; liothyronine 5 mcg Oral tab 1 tab once daily [Active]; Losartan potassium 100 mg 1 tab daily [Active]; methscopolamine 5 mg Oral tab 1 tab daily [Active]; mirtazapine 15 mg Oral tab 1 tab once daily [Active]; Omnitrope 5 mg/1.5 mL (3.3 mg/mL) subcutaneous crtg once daily [Active]; potassium chloride 20 mEq Oral TbER 1 tab once daily [Active]; Protonix 40 mg Oral TbEC 2 tabs once daily [Active]; sotalol 160 mg Oral tab 1 tab 2 times per day [Active]; tramadol 50 mg Oral tab 1 tab every 4 hours [Active]; vit B comp-vit [id number] Oral [Active]; Vitamin C 500 mg Oral tab daily [Active]; Vitamin D3 50,000 units Oral tab twice a day [Active]; warfarin 2 mg Oral tab 1 tab once daily [Active]; zinc sulfate 50 mg zinc (220 mg) Oral tab daily [Active]; - PMHx: 14:49 adrenal insuficiency; Anxiety; Atrial Fib; CHF; CVA; Diabetes - IDDM; DVT; iw Hyperlipidemia; Hypertension; Hypothyroidism; L groin blood clot; lymphedema; Pancreatitis; - PSHx: 14:49 filter; iw - Immunization history:: Adult Immunizations unknown. - Social history:: Smoking status: unknown. ROS: 15:45 Constitutional: Positive for fatigue, malaise, Negative for body aches, chills, fever, cp poor PO intake. 15:45 Eyes: Negative for injury, pain, redness, and discharge. cp 15:45 ENT: Negative for ear pain, sore throat, difficulty swallowing, difficulty handling secretions. 15:45 Cardiovascular: Positive for edema, Negative for chest pain. 15:45 Respiratory: Negative for cough, shortness of breath, wheezing. 15:45 Abdomen/GI: Positive for abdominal pain, of the right lower quadrant and left lower quadrant, Negative for vomiting, diarrhea, constipation. 15:45 Skin: Negative for rash. 15:45 Neuro: Positive for weakness, Negative for altered mental status, headache. 15:45 All other systems are negative. Exam: 15:45 Constitutional: The patient appears in no acute distress, alert, awake, cp non-diaphoretic, non-toxic, well developed, well nourished. 15:45 Head/Face: Normocephalic, atraumatic. cp 15:45 Eyes: Periorbital structures: appear normal, Conjunctiva: normal, no exudate, no injection, Sclera: no appreciated abnormality, Lids and lashes: appear normal, bilaterally. 15:45 ENT: External ear(s): are unremarkable, Nose: is normal, Mouth: Lips: moist, Oral mucosa: moist, Posterior pharynx: Airway: no evidence of obstruction, patent. 15:45 Neck: ROM/movement: is normal, is supple, without pain, no range of motions limitations. 15:45 Chest/axilla: Inspection: normal, Palpation: is normal, no crepitus, no tenderness. 15:45 Cardiovascular: Rate: normal, Rhythm: regular, Edema: pedal edema, that is marked, ankle edema, that is marked, JVD: is not appreciated. 15:45 Respiratory: the patient does not display signs of respiratory distress, Respirations: normal, no use of accessory muscles, no retractions, labored breathing, is not present, Breath sounds: are clear throughout, no decreased breath sounds, no stridor, no wheezing. 15:45 Abdomen/GI: Inspection: abdomen appears normal, Bowel sounds: active, all quadrants, Palpation: soft, in all quadrants, mild abdominal tenderness, in the right lower quadrant and left lower quadrant, rebound tenderness, is not appreciated, involuntary guarding, is not appreciated. 15:45 Back: pain, is absent, ROM is normal. 15:45 Skin: cellulitis, is not appreciated, no rash present. 15:45 Neuro: Orientation: to person, place \\T\\ time. Mentation: is normal, Motor: moves all fours, Sensation: no obvious gross deficits. 16:20 ECG was reviewed by the Attending Physician. cp Vital Signs: 15:07 BP 161 / 62; Pulse 67; Resp 18; Temp 98.5; Pulse Ox 100% on R/A; bp 16:16 BP 158 / 63; Pulse 70; Resp 16; Pulse Ox 100% ; bp 17:00 BP 163 / 63; Pulse 78; Resp 17; Pulse Ox 100% ; bp 18:00 BP 175 / 63; Pulse 65; Resp 15; Pulse Ox 100% ; bp 22:25 BP 140 / 60; Pulse 67; Resp 17; Temp 98.3; Pulse Ox 99% on R/A; mr2 MDM: 15:22 Patient medically screened. cp 16:00 Differential diagnosis: diverticulitis, gastritis, GI Bleed, Pyelonephritis, urinary cp tract infection. 19:15 Data reviewed: vital signs, nurses notes, lab test result(s), EKG, radiologic studies, cp CT scan, plain films. 19:15 Test interpretation: by ED physician or midlevel provider: ECG, plain radiologic cp studies. Counseling: I had a detailed discussion with the patient and/or guardian regarding: the historical points, exam findings, and any diagnostic results supporting the discharge/admit diagnosis, lab results, radiology results, the need for further work-up and treatment in the hospital. Physician consultation: Artemio FISHER was called at 19:10, was contacted at 19:10, regarding admission, to the telemetry unit. 08/07 15:31 Order name: Basic Metabolic Panel cp 08/07 15: Order name: CBC with Diff cp 08/07 15: Order name: LFT's cp 08/07 15: Order name: Magnesium; Complete Time: 17:02 cp 08/07 15:31 Order name: NT PRO-BNP; Complete Time: 17:02 cp 08/07 17:03 Interpretation: Abnormal: NT PRO-BNP 1088. cp 08/07 15:31 Order name: PT-INR; Complete Time: 17:02 cp 08/07 15:31 Order name: Troponin (emerg Dept Use Only); Complete Time: 17:02 cp 08/07 15:31 Order name: Procalcitonin; Complete Time: 17:02 cp 08/07 15:31 Order name: Lactate; Complete Time: 17:02 cp 08/07 15:31 Order name: Urine Microscopic Only; Complete Time: 17:02 cp 08/07 17:09 Interpretation: Reviewed. 08/07 15:31 Order name: Blood Culture Adult (2) cp 08/07 15:31 Order name: Basic Metabolic Panel; Complete Time: 17:02 EDMS 08/07 17:03 Interpretation: Normal except: NA 148; K 3.3; CL 114; GLUC 116; CRE 0.50; CA 8.0. cp 08/07 15:31 Order name: CBC with Automated Diff; Complete Time: 17:02 EDMS 08/07 17:04 Interpretation: Normal except: RBC 3.01; HGB 7.3; HCT 24.4; MCV 81.0; MCH 24.2; MCHC cp 29.9; PLT 130; RDW 18.5; MARIA E% 82.5; LYM% 12.3. 08/07 15:31 Order name: Liver (Hepatic) Function; Complete Time: 17:02 EDMN 12 18:47 Interpretation: Normal except: AST 12; TP 6.1; ALB 2.9; A/G 0.9. 12/ 15:31 Order name: XRAY Chest (1 view); Complete Time: 17:02 08/07 15:31 Order name: EKG; Complete Time: 15:32 08/07 15:31 Order name: Cardiac monitoring; Complete Time: 16:18 08/07 15:31 Order name: EKG - Nurse/Tech; Complete Time: 16:16 08/07 16:09 Order name: CT Abd/Pelvis - IV Contrast Only; Complete Time: 18:36 08/07 18:36 Interpretation: Report reviewed. 08/07 16:37 Order name: Urine Dipstick-Ancillary; Complete Time: 17:02 EDMN 08/07 19:40 Order name: CONS Physician Consult EDMN 08/07 19:44 Order name: Hemoglobin ej 08/07 19:44 Order name: Hematocrit ej 08/07 19:45 Order name: Type And Screen 08/07 19:47 Order name: COVID-19 SARS RT PCR (Document "Date of Onset" if Symptomatic) mw 08/07 20:47 Order name: SARS-COV-2 RT PCR EDMN 08/07 15:31 Order name: IV Saline Lock; Complete Time: 15:38 08/07 15:31 Order name: Labs collected and sent; Complete Time: 16:18 08/07 15:31 Order name: O2 Per Protocol; Complete Time: 15:37 08/07 15:31 Order name: O2 Sat Monitoring; Complete Time: 15:37 08/07 15:31 Order name: Urine Dipstick-Ancillary (obtain specimen); Complete Time: 17:14 08/07 15:31 Order name: Cath; Complete Time: 16:18 cp EC:20 Rate is 70 beats/min. Rhythm is regular. CT interval is normal. QRS interval is normal. cp QT interval is normal. T waves are Inverted in lead aVR. Interpreted by me. Reviewed by me. Administered Medications: 17:15 Drug: Lasix (furosemide) 20 mg Route: IVP; Site: right antecubital; bp 18:10 Follow up: Response: No adverse reaction bp 19:41 Drug: ProTONIX (pantoprazole) 40 mg Route: IVP; Site: left antecubital; bp 19:41 Drug: ProTONIX (pantoprazole) 8 mg/hr Route: IV; Rate: 25 ml/hr; Site: left antecubital;bp 20:13 Drug: morphine 2 mg Route: IVP; Site: left antecubital; mr2 Disposition: 08/08 07:05 Co-signature as Attending Physician, Adan Bolden MD I agree with the assessment and rn plan of care. Attestation: The patient's history, exam findings, diagnostics, and a summary of any interventions or procedures was reviewed in detail with Jose Elias FISHER. Disposition Summary: 08/07/21 19:17 Hospitalization Ordered Hospitalization Status: Inpatient Admission cp Provider: Jere Sharma cp Location: Telemetry/[facility] (Inpatient) cp Condition: Stable cp Problem: new cp Symptoms: have improved cp Bed/Room Type: Standard cp Room Assignment: 212(08/07/21 21:01) mw Diagnosis - GI Bleed/ Gastrointestinal hemorrhage, unspecified cp - Anemia, unspecified cp - Unspecified combined systolic (congestive) and diastolic (congestive) heart failure cp Forms: - Medication Reconciliation Form cp - SBAR form cp Signatures: Dispatcher [employer] EDMS Uzma Oneal RN RN mw Williams, Irene, RN RN iw Nieto, Roman, MD MD rn Page, Corey, PA PA cp Bartolo Hays RN RN bp Daniel Engle RN RN mr2 Corrections: (The following items were deleted from the chart) 08/07 21:01 19:17 cp mw 08/08 17:04 17:02 Constitutional: Positive for fatigue, malaise, Negative for body aches, chills, cp fever, cp
[2021-08-07] MEDS ORDERED: NA CHLORIDE 0.9% 250 ML ONE (19:39)
[2021-08-07] MEDS ORDERED: PANTOPRAZOLE 40 MG INJ ONE (19:39)
[2021-08-07] MEDS ORDERED: MORPHINE 4 MG/ML SYR ONE (20:02)
[2021-08-07] MEDS ORDERED: IPRATROPIUM BROM 0.5MG/2.5ML ONE (20:02)
--- NOTE | 2021-08-07 20:41 | P.HP ---
Certification for Inpatient Patient admitted to: Inpatient With expected LOS: >2 Midnights Patient will require the following post-hospital care: None Practitioner: I am a practitioner with admitting privileges, knowledge of patient current condition, hospital course, and medical plan of care. Services: Services provided to patient in accordance with Admission requirements found in Title 42 Section 412.3 of the Code of Federal Regulations <Artemio Shields Lorraine - Last Filed: 08/07/21 20:36> Patient History Date of Service: 08/07/21 Reason for admission: GIB History of Present Illness: Ms. Payan is an 81 yo F with chronic atrial fibrillation on eliquis, history of GIB, CHF, DM, HTN, lymphedema who presents with one week of worsening fatigue, anorexia, and abdominal pain. She also reports worsening edema in her legs. Denies constipation, melena, hematochezia. FOBT+ in the ED. Patient has had GI bleeds in the past, and has required recurrent blood transfusions in the past. GI was consulted and will see patient in the AM. H/H 7.3 Plt 130 Na 148 K 3.3 Cl 114 BNP 1088 CXR IMPRESSION: Mild CHF/volume overload findings. - Past Medical/Surgical History Diabetic: Yes -: Diabetes mellitus type 2 non-insulin dependent -: History CVA 2012 -: HTN -: Anxiety -: History of pituitary gland removal -: GERD with history of GI bleed -: Hypothyroidism -: Chronic anti coagulation with Eliquis -: History atrial fibrillation -: Chronic steroids -: Adrenal insufficiency -: Hyperlipidemia -: hysterectomy -: bradley carpal tunnel sx -: L lumpectomy -: brain tumor removed- benign -: pituitary gland removal -: appendectomy Psychosocial/ Personal History: The patient is . She has 5 children. She does not work. - Family History Mother -: Heart disease, Hypertension Notes: of heart attack Father -: Heart disease Notes: of heart attack - Social History Smoking Status: Never smoker Alcohol use: No CD- Drugs: No Caffeine use: Yes Place of Residence: Home <Artemio Shields - Last Filed: 08/07/21 20:36> Date of Service: 08/07/21 <Jere Sharma - Last Filed: 08/09/21 16:41> Allergies ciprofloxacin [From Cipro] Allergy (Verified 02/11/17 06:42) Unknown rivaroxaban [From Xarelto] Allergy (Verified 02/11/17 06:42) Unknown piperacillin [From Zosyn] Adverse Reaction (Verified 04/28/19 22:34) Hives/Rash tazobactam [From Zosyn] Adverse Reaction (Verified 04/28/19 22:34) Hives/Rash Home Medications: Amlodipine [Norvasc*] 1 tab PO DAILY 07/30/20 Losartan Potassium [Cozaar] 100 mg PO DAILY 07/30/20 Sotalol HCl [Sotalol] 160 mg PO DAILY 07/30/20 Hydrocortisone [Cortef*] 30 mg PO BIDWM 03/04/21 Levothyroxine Sodium [Levothyroxine] 112 mcg PO DAILY 03/04/21 Tramadol HCl [Ultram] 1 tab PO DAILYPRN PRN 03/04/21 Apixaban [Eliquis *] 2.5 mg PO DAILY 04/20/21 Isosorbide Mononitrate [Isosorbide Mononitrate ER] 30 mg PO DAILY 04/20/21 Mirtazapine 15 mg PO DAILY 04/20/21 Simvastatin 40 mg PO DAILY 04/20/21 Somatropin [Humatrope] 0.2 mg SQ DAILY 04/20/21 clonazePAM [Clonazepam] 0.5 mg PO BID PRN 04/20/21 Pantoprazole [Protonix Tab*] 40 mg PO BIDAC 30 Days #60 tab 04/26/21 Review of Systems General: Weakness, Malaise, As per HPI Eyes: Unremarkable ENT: Unremarkable Respiratory: Unremarkable Cardiovascular: Edema Gastrointestinal: Abdominal Pain, Melena, As per HPI Genitourinary: Unremarkable Musculoskeletal: Unremarkable Integumentary: Unremarkable Neurological: Unremarkable Lymphatics: Unremarkable <Artemio Shields - Last Filed: 08/07/21 20:36> Physical Examination - Physical Exam General: Alert, In no apparent distress HEENT: Atraumatic, PERRLA, Mucous membr. moist/pink, EOMI, Sclerae nonicteric Neck: Supple, 2+ carotid pulse no bruit, No LAD, Without JVD or thyroid abnormality Respiratory: Diminished Cardiovascular: Regular rate/rhythm, Normal S1 S2, Edema Gastrointestinal: Normal bowel sounds, Tenderness Musculoskeletal: No tenderness Integumentary: No rashes, Tenderness/swelling, Other (chronic lymphedema) Neurological: Normal speech, Normal strength at 5/5 x4 extr, Normal tone, Normal affect Lymphatics: No axilla or inguinal lymphadenopathy - Studies Laboratory Data (last 24 hrs) 08/07/21 16:00: PT 14.0 H, INR 1.21 08/07/21 16:00: WBC 5.70, Hgb 7.3 L, Hct 24.4 L, Plt Count 130 L 08/07/21 16:00: Sodium 148 H, Potassium 3.3 L, BUN 18, Creatinine 0.50 L, Gluc ose 116 H, Magnesium 2.0, Total Bilirubin 0.7, AST 12 L, ALT 17, Alkaline Phosphatase 47 <Artemio Shields - Last Filed: 08/07/21 20:36> Assessment and Plan - Problems (Diagnosis) (1) CHF (congestive heart failure) Current Visit: Yes Status: Chronic Qualifiers: Heart failure type: unspecified Heart failure chronicity: chronic Qualified Code(s): I50.9 - Heart failure, unspecified (2) Atrial fibrillation Onset Date: 12/30/16 Current Visit: No Status: Chronic Qualifiers: Atrial fibrillation type: chronic Qualified Code(s): I48.20 - Chronic atrial fibrillation, unspecified (3) Chronic anemia Onset Date: 02/09/16 Current Visit: No Status: Chronic (4) Chronic anticoagulation Onset Date: 01/20/16 Current Visit: No Status: Chronic (5) Diabetes mellitus Onset Date: 12/30/16 Current Visit: No Status: Chronic Qualifiers: Diabetes mellitus type: type 2 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 mellitus 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 insulin use: without nursing home use Diabetes mellitus complication status: with kidney complications Diabetes mellitus complication detail: with chronic kidney disease Chronic kidney disease stage: stage 2 (mild) Qualified Code(s): E11.22 - Type 2 diabetes mellitus with diabetic chronic kidney disease; N18.2 - Chronic kidney disease, stage 2 (mild) (6) Hyperlipidemia Onset Date: 01/20/16 Current Visit: No Status: Chronic Qualifiers: Hyperlipidemia type: mixed hyperlipidemia Qualified Code(s): E78.2 - Mixed hyperlipidemia (7) Hypertension Onset Date: 01/20/16 Current Visit: No Status: Chronic Qualifiers: Hypertension type: primary hypertension Qualified Code(s): I10 - Essential (primary) hypertension (8) Hypothyroidism Onset Date: 01/20/16 Current Visit: No Status: Chronic Qualifiers: Hypothyroidism type: acquired Qualified Code(s): E03.9 - Hypothyroidism, unspecified (9) Lymphedema Current Visit: No Status: Chronic (10) Gastrointestinal hemorrhage Onset Date: 03/13/15 Current Visit: No Status: Acute Qualifiers: GI bleed type/associated pathology: melena Qualified Code(s): K92.1 - Melena - Plan GI consulted NPO after midnight serial H&H, type and screen continue protonix drip sliding scale insulin and accuchecks reconcile and continue home medications hydralazine PRN for BP spikes potassium replacement protocol DVT ppx Discharge Plan: Home Plan to discharge in: 72 Hours - Advance Directives Does patient have a Living Will: Yes Does patient have a Durable POA for Healthcare: Yes - Code Status/Comfort Care Code Status Assessed: Yes (full code ) Critical Care: No Time Spent Managing Pts Care (In Minutes): 70 <Artemio Shields - Last Filed: 08/07/21 20:36> - Problems (Diagnosis) (1) GI bleed Current Visit: Yes Status: Acute (2) Chronic anticoagulation Onset Date: 01/20/16 Current Visit: No Status: Chronic (3) Chronic atrial fibrillation Current Visit: No Status: Chronic (4) Chronic use of steroids Onset Date: 12/06/17 Current Visit: No Status: Chronic (5) Diabetes mellitus type II, non insulin dependent Onset Date: 01/20/16 Current Visit: No Status: Chronic (6) Diverticulosis Onset Date: 03/13/15 Current Visit: No Status: Chronic (7) Hyperlipidemia Onset Date: 01/20/16 Current Visit: No Status: Chronic Qualifiers: Hyperlipidemia type: mixed hyperlipidemia Qualified Code(s): E78.2 - Mixed hyperlipidemia (8) Hypertension Onset Date: 01/20/16 Current Visit: No Status: Chronic Qualifiers: Hypertension type: primary hypertension Qualified Code(s): I10 - Essential (primary) hypertension (9) Hypothyroidism (acquired) Current Visit: No Status: Chronic <Jere Sharma - Last Filed: 08/09/21 16:41> Date of Service: 08/07/21 Subjective Agree with plan of care as mentioned in HPI Review of Systems 10-point ROS is otherwise unremarkable Physical Examination - Vital Signs Reviewed - Physical Exam General: Alert, In no apparent distress, Oriented x3 Respiratory: Clear to auscultation bilaterally, Normal air movement Cardiovascular: Regular rate/rhythm, Normal S1 S2, Systolic murmur Gastrointestinal: Normal bowel sounds, Soft and benign, Non-distended, No tenderness Musculoskeletal: No clubbing, No swelling, No tenderness Neurological: Sensation intact, Cranial nerves 3-12 intact Assessment & Plan - Problems (Diagnosis) (1) GI bleed Current Visit: Yes Status: Acute (2) Chronic anticoagulation Onset Date: 01/20/16 Current Visit: No Status: Chronic (3) Chronic atrial fibrillation Current Visit: No Status: Chronic (4) Chronic use of steroids Onset Date: 12/06/17 Current Visit: No Status: Chronic (5) Diabetes mellitus type II, non insulin dependent Onset Date: 01/20/16 Current Visit: No Status: Chronic (6) Diverticulosis Onset Date: 03/13/15 Current Visit: No Status: Chronic (7) Hyperlipidemia Onset Date: 01/20/16 Current Visit: No Status: Chronic Qualifiers: Hyperlipidemia type: mixed hyperlipidemia Qualified Code(s): E78.2 - Mixed hyperlipidemia (8) Hypertension Onset Date: 01/20/16 Current Visit: No Status: Chronic Qualifiers: Hypertension type: primary hypertension Qualified Code(s): I10 - Essential (primary) hypertension (9) Hypothyroidism (acquired) Current Visit: No Status: Chronic - Plan Plan of care as below: 1. Continue with gentle IV hydration and PPI drip 2. Hold anti coagulation 3. Continue with pain control 4. NPO 5. GI consultation 6. Serial H&H, and we will monitor LFTs and lipase along with electrolytes. 7. Continue with strict blood pressure and blood sugar control 8. Continue with cardiac meds 9. GI and DVT prophylaxis Discharge Plan: Home Plan to discharge in: Greater than 2 days - Advance Directives Does patient have a Living Will: Yes Does patient have a Durable POA for Healthcare: Yes - Code Status/Comfort Care Code Status Assessed: Yes Code Status: Full Code Critical Care: No Time Spent Managing PTS Care (In Minutes): 35 <Jere Sharma - Last Filed: 08/09/21 16:41>
[2021-08-07 21:12] LABS: Hematocrit 26.1 % (36.0-45.0)
[2021-08-07] MEDS ORDERED: INSULIN -REGULAR HUMAN 50 UNIT/0.5 ML ML SQ SCH (23:57)
[2021-08-07] MEDS ORDERED: PANTOPRAZOLE INJ 80 MG in NA CHLORIDE 0.9% 250 ML IV SCH (23:57)
[2021-08-07] MEDS ORDERED: ACETAMINOPHEN 500 MG TAB PO PRN (23:57)
[2021-08-07 23:59] VITALS: BMI 27.1
[2021-08-08 00:57] LABS: Hematocrit 26.8 % (36.0-45.0)
[2021-08-08] MEDS ORDERED: PANTOPRAZOLE 40 MG INJ ONE (01:03)
[2021-08-08] MEDS ORDERED: NA CHLORIDE 0.9% 250 ML ONE ×3 (01:04→12:16)
[2021-08-08] MEDS: HYDRALAZINE HCL 20 MG/ML VIAL IV PRN (01:23)
[2021-08-08] MEDS: INSULIN -REGULAR HUMAN 50 UNIT/0.5 ML ML SQ SCH ×4 (01:45→17:57)
[2021-08-08] MEDS ORDERED: POTASSIUM 25 MEQ EFFERV TAB PO ONE (01:59)
[2021-08-08] MEDS ORDERED: MORPHINE 2 MG/ML SYR IV ONE (01:59)
[2021-08-08] MEDS: ONDANSETRON 4 MG/2 ML VIAL IV PRN (02:18)
[2021-08-08 05:34] LABS: Basophils % 0.5 % (0-1.3); Hematocrit 25.3 % (36.0-45.0); Lymphocytes % 20.3 % (15.3-44.8); MPV 8.4 fL (7.6-11.3); RBC Red Blood Cell Count 3.15 M/uL (3.86-4.86)
[2021-08-08 06:10] LABS: ALT/SGPT 14 U/L (12-78); AST/SGOT 13 U/L (15-37); Albumin 2.7 g/dL (3.4-5.0); Alkaline Phosphatase 46 U/L (45-117); BUN Blood Urea Nitrogen 15 mg/dL (7-18); Bicarbonate 28 mmol/L (21-32); Bilirubin Total 0.7 mg/dL (0.2-1.0); Glucose Level 71 mg/dL (74-106); Magnesium 1.9 mg/dL (1.8-2.4); Phosphorus 2.9 mg/dL (2.5-4.9); Protein, Total 5.7 g/dL (6.4-8.2); Sodium Level 148 mmol/L (136-145)
[2021-08-08 06:12] LABS: Potassium 2.8 mmol/L (3.5-5.1)
[2021-08-08] MEDS: KCL 20 MEQ/100 mL IVPB 20 MEQ/100 ML BAG IV SCH ×2 (06:40→14:00)
[2021-08-08] MEDS: PANTOPRAZOLE INJ 80 MG in NA CHLORIDE 0.9% 250 ML IV SCH ×3 (10:00→20:00)
--- NOTE | 2021-08-08 12:36 | EKG ---
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
[2021-08-08] MEDS ORDERED: SOTALOL HCL 80 MG TAB PO ONE (14:32)
[2021-08-08] MEDS ORDERED: FUROSEMIDE 20 MG/ 2ML VIAL IV SCH (15:00)
[2021-08-08] MEDS: MORPHINE 2 MG/ML SYR IV PRN (15:10)
[2021-08-08] MEDS: HYDROCORTISONE 10 MG TAB PO SCH (17:12)
[2021-08-08] MEDS: clonazePAM 0.5 MG TAB PO PRN (18:40)
[2021-08-08 18:58] LABS: Hematocrit 28.6 % (36.0-45.0)
[2021-08-08] MEDS: ATORVASTATIN 20 MG TAB PO SCH (20:37)
[2021-08-09] MEDS: PANTOPRAZOLE INJ 80 MG in NA CHLORIDE 0.9% 250 ML IV SCH ×3 (02:32→16:54)
[2021-08-09 04:32] LABS: Absolute Lymphocytes (CBC) 1.1 K/uL (0.7-4.9); Basophils % 0.5 % (0-1.3); Hematocrit 27.2 % (36.0-45.0); Lymphocytes % 28.6 % (15.3-44.8); MPV 8.4 fL (7.6-11.3); RBC Red Blood Cell Count 3.37 M/uL (3.86-4.86)
[2021-08-09 04:52] LABS: ALT/SGPT 13 U/L (12-78); AST/SGOT 10 U/L (15-37); Albumin 2.4 g/dL (3.4-5.0); Alkaline Phosphatase 43 U/L (45-117); BUN Blood Urea Nitrogen 15 mg/dL (7-18); Bicarbonate 26 mmol/L (21-32); Bilirubin Total 0.9 mg/dL (0.2-1.0); Glucose Level 89 mg/dL (74-106); Magnesium 2.1 mg/dL (1.8-2.4); Phosphorus 3.5 mg/dL (2.5-4.9); Potassium 3.6 mmol/L (3.5-5.1); Protein, Total 5.3 g/dL (6.4-8.2); Sodium Level 147 mmol/L (136-145)
[2021-08-09] MEDS: MORPHINE 2 MG/ML SYR IV PRN (05:01)
[2021-08-09] MEDS: INSULIN -REGULAR HUMAN 50 UNIT/0.5 ML ML SQ SCH ×4 (06:00→17:00)
[2021-08-09] MEDS: AMLODIPINE 5 MG TAB PO SCH (09:00)
[2021-08-09] MEDS: SOTALOL HCL 80 MG TAB PO SCH (09:00)
[2021-08-09] MEDS: HYDROCORTISONE 10 MG TAB PO SCH ×2 (09:00→16:53)
[2021-08-09] MEDS: SOMATROPIN SQ SCH (09:00)
[2021-08-09] MEDS: LEVOTHYROXINE SOD 0.112 MG TAB PO SCH (09:00)
[2021-08-09] MEDS: LOSARTAN POTASSIUM 50 MG TABLET PO SCH (09:00)
[2021-08-09] MEDS ORDERED: POTASSIUM CL SA 10 MEQ TAB PO ONE (09:00)
[2021-08-09] MEDS: MIRTAZAPINE 15 MG TAB PO SCH (09:00)
[2021-08-09] MEDS: ISOSORBIDE MONO SR 30 MG TAB PO SCH (09:00)
[2021-08-09 11:45] LABS: Absolute Lymphocytes (CBC) 0.7 K/uL (0.7-4.9); Basophils % 0.3 % (0-1.3); Hematocrit 27.8 % (36.0-45.0); Lymphocytes % 14.5 % (15.3-44.8); MPV 8.2 fL (7.6-11.3)
[2021-08-09] MEDS ORDERED: INFLUENZA VACCINE (for 6+ mo) 0.5 ML DOSE IMVAC ONE (12:00)
[2021-08-09 12:20] LABS: BUN Blood Urea Nitrogen 16 mg/dL (7-18); Bicarbonate 27 mmol/L (21-32); Ferritin 18.3 ng/mL (8-388); Folic Acid, (Folate) > 20.0 ng/mL (3.1-17.5); Glucose Level 81 mg/dL (74-106); Potassium 3.6 mmol/L (3.5-5.1); Sodium Level 147 mmol/L (136-145)
[2021-08-09] MEDS ORDERED: LIDOCAINE 1% MPF 5 ML VIAL ONE (15:01)
[2021-08-09] MEDS ORDERED: propofoL 200 MG/20 ML VIAL IV ONE (15:01)
[2021-08-09] MEDS ORDERED: GLYCOPYRROLATE 0.2 MG/ML SYR ONE (15:02)
[2021-08-09] MEDS: NA CHLORIDE 0.9% 1,000 ML ONE ×2 (15:22→15:35)
[2021-08-09] MEDS ORDERED: MAGNESIUM CITRATE 300 ML BOT PO SCH (16:20)
[2021-08-09] MEDS: METOCLOPRAMIDE 10 MG/2mL INJ IV SCH ×3 (16:20→21:39)
[2021-08-09] MEDS ORDERED: GOLYTELY 4000 ML PO SCH (16:20)
--- NOTE | 2021-08-09 16:37 | P.PN ---
Subjective Date of Service: 08/08/21 Chief Complaint: GIB Patient is clinically feeling better. Transfusing 1 unit of packed red blood cells. Will gently diurese as well. Recommend patient getting out of bed as well. Review of Systems 10-point ROS is otherwise unremarkable Physical Examination - Vital Signs Temperature: 97 F Blood Pressure: 136/65 Pulse: 71 Respirations: 16 Pulse Ox (%): 97 - Physical Exam General: Alert, In no apparent distress, Oriented x3 Respiratory: Clear to auscultation bilaterally, Normal air movement Cardiovascular: Regular rate/rhythm, Normal S1 S2, Systolic murmur Gastrointestinal: Normal bowel sounds, Soft and benign, Non-distended, No tenderness Musculoskeletal: No clubbing, No swelling, No tenderness Neurological: Sensation intact, Cranial nerves 3-12 intact - Studies Medications List Reviewed: Yes Assessment & Plan - Problems (Diagnosis) (1) GI bleed Current Visit: Yes Status: Acute (2) Chronic anticoagulation Onset Date: 01/20/16 Current Visit: No Status: Chronic (3) Chronic atrial fibrillation Current Visit: No Status: Chronic (4) Chronic use of steroids Onset Date: 12/06/17 Current Visit: No Status: Chronic (5) Diabetes mellitus type II, non insulin dependent Onset Date: 01/20/16 Current Visit: No Status: Chronic (6) Diverticulosis Onset Date: 03/13/15 Current Visit: No Status: Chronic (7) Hyperlipidemia Onset Date: 01/20/16 Current Visit: No Status: Chronic Qualifiers: Hyperlipidemia type: mixed hyperlipidemia Qualified Code(s): E78.2 - Mixed hyperlipidemia (8) Hypertension Onset Date: 01/20/16 Current Visit: No Status: Chronic Qualifiers: Hypertension type: primary hypertension Qualified Code(s): I10 - Essential (primary) hypertension (9) Hypothyroidism (acquired) Current Visit: No Status: Chronic - Plan Plan: 1. Continue with gentle IV hydration and PPI drip 2. Hold anti coagulation 3. Continue with pain control 4. NPO 5. GI consultation 6. Serial H&H, and we will monitor LFTs and lipase along with electrolytes. 7. Continue with strict blood pressure and blood sugar control 8. Continue with cardiac meds 9. GI and DVT prophylaxis Discharge Plan: Home Plan to discharge in: Greater than 2 days - Advance Directives Does patient have a Living Will: Yes Does patient have a Durable POA for Healthcare: Yes - Code Status/Comfort Care Code Status Assessed: Yes Code Status: Full Code Critical Care: No Time Spent Managing PTS Care (In Minutes): 35
--- NOTE | 2021-08-09 16:40 | P.PN ---
Date of Service: 08/09/21 Subjective Patient scheduled for endoscopy today. Patient will get out of bed and ambulate and will Dc Taylor catheter. Review of Systems 10-point ROS is otherwise unremarkable Physical Examination - Vital Signs Reviewed - Physical Exam General: Alert, In no apparent distress, Oriented x3 Respiratory: Clear to auscultation bilaterally, Normal air movement Cardiovascular: Regular rate/rhythm, Normal S1 S2, Systolic murmur Gastrointestinal: Normal bowel sounds, Soft and benign, Non-distended, No tenderness Musculoskeletal: No clubbing, No swelling, No tenderness Neurological: Sensation intact, Cranial nerves 3-12 intact - Studies Medications List Reviewed: Yes Assessment & Plan - Problems (Diagnosis) (1) GI bleed Current Visit: Yes Status: Acute (2) Chronic anticoagulation Onset Date: 01/20/16 Current Visit: No Status: Chronic (3) Chronic atrial fibrillation Current Visit: No Status: Chronic (4) Chronic use of steroids Onset Date: 12/06/17 Current Visit: No Status: Chronic (5) Diabetes mellitus type II, non insulin dependent Onset Date: 01/20/16 Current Visit: No Status: Chronic (6) Diverticulosis Onset Date: 03/13/15 Current Visit: No Status: Chronic (7) Hyperlipidemia Onset Date: 01/20/16 Current Visit: No Status: Chronic Qualifiers: Hyperlipidemia type: mixed hyperlipidemia Qualified Code(s): E78.2 - Mixed hyperlipidemia (8) Hypertension Onset Date: 01/20/16 Current Visit: No Status: Chronic Qualifiers: Hypertension type: primary hypertension Qualified Code(s): I10 - Essential (primary) hypertension (9) Hypothyroidism (acquired) Current Visit: No Status: Chronic - Plan Continue plan of care as mentioned below: 1. Plan to Hep-Lock IV and PPI drip 2. Hold anti coagulation 3. Continue with pain control 4. NPO 5. GI consultation 6. Serial H&H, and we will monitor LFTs and lipase along with electrolytes. 7. Continue with strict blood pressure and blood sugar control 8. Continue with cardiac meds 9. GI and DVT prophylaxis Discharge Plan: Home Plan to discharge in: Greater than 2 days - Advance Directives Does patient have a Living Will: Yes Does patient have a Durable POA for Healthcare: Yes - Code Status/Comfort Care Code Status Assessed: Yes Code Status: Full Code Critical Care: No Time Spent Managing PTS Care (In Minutes): 35
--- NOTE | 2021-08-09 17:29 | CON ---
Date of Consultation: 08/08/2021 Reason For Consultation: Anemia and dysphagia. History Of Present Illness: The patient is an 81-year-old female, who has past history of d iabetes, hypertension, hyperlipidemia, congestive heart failure, atrial fibrillation. The patient wa s admitted to the hospital due to anemia and not feeling well. The patient denies seeing any blood, except occasionally when she has diarrhea, she wipes and she sees blood on the toilet tissue. She is on Eliquis for atrial fibrillation. Denies any hematemesis, coffee-grounds emesis, hemoptysis, shabbir turia, dysuria, polydipsia, melena. She does see occasional blood on the toilet tissue with wiping s he reports, but other than that no blood. Past Medical History: Significant for diabetes, hypertension, hyperlipidemia, diastolic congestive h eart failure, atrial fibrillation, hyperlipidemia, stroke, chronic kidney disease, hypothyroidism, DV T, blood clots, lymphedema, brain tumor that was benign, resected pituitary gland resection leading t o adrenal insufficiency and also appendectomy, hysterectomy, peptic ulcer disease with 8 packed RBCs with bleeding at [facility] in April of this year. Home Medications: In the past have been Norvasc, vitamin D, glipizide, Cytomel, Cozaar sotalol, Lipi tor, Tricor, levothyroxine, and Ultram. Allergies: TO CIPRO, XARELTO, AND ZOSYN. Social History: She is . Five children, one of suicide by gunshot. No tobacco. No alc ohol. Lives with at home. Family History: Mother and father of coronary artery disease and myocardial infarction. Other home medicines included now include Norvasc, Cozaar, sotalol, Cortef, levothyroxine, Ultram, El iquis, isosorbide, Zocor, somatotropin, clonazepam, mirtazapine. She was admitted due to worsening f atigue and abdominal pain. Hemoglobin was down to 7.3 on admission, BNP of 1088. Review of Systems: The patient states she sees blood on toilet tissue wiping. Otherwise, no blood seen. No melena, hem atochezia, coffee-ground hematuria, dysuria, polydipsia, chest pain, shortness of breath, seizure, sy ncope, muscle aches, joint aches, backaches. She does have some occasional lower abdominal pain, she states. No seizure, syncope, depression, anxiety. Physical Examination: Vital Signs: The patient has a temperature of 97.1 degrees Fahrenheit, pulse 70, respirations 16, bl ood pressure 156/64, O2 saturation 100% on room air. General: She is an obese female, lying in bed, no acute distress. HEENT: Normocephalic, atraumatic. Anicteric. Pupils equal, round, and reactive to light. Extraocu lar movements are intact. Oropharynx clear. Neck: Supple. No masses. Respirations: Clear to auscultation bilaterally. Cardiac: Irregularly irregular with AFib history. Abdomen: Positive bowel sounds. Soft, nondistended. Pain in the right lower and left lower quadran t area and a little bit in the right upper quadrant area, but no peritoneal or Ricks signs. No rebo und. The patient is 5 feet 4 inches, 157 pounds, BMI of 27.1 kg/m2. Neuro: Alert and oriented x3. She moves all extremities. Sensation intact to light touch. Laboratory Data: The patient has a white count of 5.1, hemoglobin of 7.6, low at 7.3 on admission. Hematocrit 25.3, MCV of 81, platelets of 139, polys of 70%, lymphocytes 20%, monocytes 8%, eosinophil s 1%. PT at 14.0, INR of 1.21. She has sodium of 148, potassium 2.8, chloride 113, bicarb 28, BUN o f 15, creatinine of 0.5, glucose 71, calcium 8.0, phosphorus 2.9, magnesium 1.9, total bilirubin 0.7, AST of 13, ALT of 14, alkaline phosphatase 46. Troponin I of less than 0.02. Total protein 5.7, al bumin 2.7. UA was negative. COVID-19 testing was negative as well. Imaging: CT abdomen and pelvis revealed no acute findings. She does have severe spinal stenosis at L4-L5 and moderate stenosis at L3-L4. L3 and L4 have vertebroplasty changes. IVC filter is noted to be in place and she has minimal diverticulosis. Uterus is absent. Several cysts in the liver, whic h appeared to be benign in appearance. Chest x-ray, some mild congestive heart failure, overload fin dings. Impression: 1.Anemia, hemoglobin of 7.3 7.6. No blood seen by the patient except for wiping with damien rrhea. She is on Eliquis for atrial fibrillation. We will hold Eliquis. 2.Dysphagia to solids. This has been recurrent over the years. EGD with dilatation. 3.Hemorrhoid pain after diarrhea and sees blood with wiping. 4.Right and left lower quadrant tenderness and right upper quadrant tenderness. Needs to investigat e with endoscopies. 5.History of diabetes, hypertension, hyperlipidemia, diastolic congestive heart failure, atrial fibr illation, and other as per above. Recommendations: 1.Agree with transfusion of packed RBCs. 2.Serial H and H and transfuse p.r.n. 3.Hold Eliquis. 4.EGD and colonoscopy. 5.PPI therapy. ANGÉLICA/AZIZA Voice ID: [id number] Report ID: [id number]
[2021-08-09] MEDS: ATORVASTATIN 20 MG TAB PO SCH (21:34)
[2021-08-10] MEDS: METOCLOPRAMIDE 10 MG/2mL INJ IV SCH (00:13)
[2021-08-10] MEDS: clonazePAM 0.5 MG TAB PO PRN ×2 (01:53→20:41)
[2021-08-10] MEDS: PANTOPRAZOLE INJ 80 MG in NA CHLORIDE 0.9% 250 ML IV SCH ×3 (01:53→19:43)
[2021-08-10] MEDS: INSULIN -REGULAR HUMAN 50 UNIT/0.5 ML ML SQ SCH ×4 (06:00→17:45)
[2021-08-10 06:16] LABS: Basophils % 0.2 % (0-1.3); Hematocrit 30.2 % (36.0-45.0); Lymphocytes % 22.4 % (15.3-44.8); MPV 8.3 fL (7.6-11.3); RBC Red Blood Cell Count 3.73 M/uL (3.86-4.86)
--- NOTE | 2021-08-10 06:26 | P.PN ---
Subjective Date of Service: 08/10/21 Primary Care Provider: Dr. Iraheta Chief Complaint: GIB Subjective: Improving Physical Examination - Vital Signs Temperature: 98.0 F Blood Pressure: 135/62 Pulse: 65 Respirations: 16 Pulse Ox (%): 96 - Studies Medications List Reviewed: Yes Assessment & Plan Discharge Plan: Home Plan to discharge in: 24 Hours Physician Review Additional Text: COVID: Negative EGD: Performed. Will discuss results with GI. Colonoscopy: To be done today Physical exam: General: Alert, In no apparent distress, Oriented x3 Respiratory: Clear to auscultation bilaterally, Normal air movement Cardiovascular: Regular rate/rhythm, Normal S1 S2, Systolic murmur Gastrointestinal: Normal bowel sounds, Soft and benign, Non-distended, No tenderness Musculoskeletal: No clubbing, No swelling, No tenderness Neurological: Sensation intact, Cranial nerves 3-12 intact Impression: Acute anemia secondary to GI bleed Chronic atrial fibrillation on chronic anticoagulation therapy History of chronic steroids Diabetes mellitus type 2 [id number] with Hypoglycemia Hypertension Hyperlipidemia Hypothyroidism Hypernatremia Plan: 1. Patient had EGD yesterday. Will discuss with GI about findings. Continue PPI drip. Will start D5W due to hypernatremia and low blood sugar in preparation for colonoscopy today. 2. Continue to hold Eliquis 3. Provide medication for pain 4. Patient remains n.p.o. 5. Await results from colonoscopy. 6. Will discuss with cardiology. Continue Betapace. Continue to hold Eliquis. 7. Continue blood pressure medication. 8. Continue medication for thyroid and hyperlipidemia. 9. Continue hydrocortisone and somatropin. DVT prophylaxis: SCD CODE STATUS: Patient is DO NOT RESUSCITATE Advanced care [id number] minutes: Home at discharge Time Spent Managing Pts Care (In Minutes): 55
[2021-08-10 06:28] LABS: ALT/SGPT 14 U/L (12-78); AST/SGOT 14 U/L (15-37); Albumin 2.4 g/dL (3.4-5.0); Alkaline Phosphatase 42 U/L (45-117); BUN Blood Urea Nitrogen 12 mg/dL (7-18); Bicarbonate 26 mmol/L (21-32); Bilirubin Total 0.8 mg/dL (0.2-1.0); Glucose Level 85 mg/dL (74-106); Magnesium 2.1 mg/dL (1.8-2.4); Phosphorus 2.9 mg/dL (2.5-4.9); Potassium 3.1 mmol/L (3.5-5.1); Protein, Total 5.4 g/dL (6.4-8.2); Sodium Level 151 mmol/L (136-145)
[2021-08-10] MEDS ORDERED: POTASSIUM CL 40 MEQ in NA CHLORIDE 0.9% 500 ML IV SCH (08:00)
[2021-08-10] MEDS: LEVOTHYROXINE SOD 0.112 MG TAB PO SCH (08:30)
[2021-08-10] MEDS ORDERED: CYANOCOBALAMIN 1000MCG/ML INJ IM SCH (09:00)
[2021-08-10] MEDS: HYDROCORTISONE 10 MG TAB PO SCH ×2 (09:00→17:43)
[2021-08-10] MEDS: AMLODIPINE 5 MG TAB PO SCH (09:11)
[2021-08-10] MEDS: MIRTAZAPINE 15 MG TAB PO SCH (09:12)
[2021-08-10] MEDS: SOTALOL HCL 80 MG TAB PO SCH (09:12)
[2021-08-10] MEDS: ISOSORBIDE MONO SR 30 MG TAB PO SCH (09:12)
[2021-08-10] MEDS: LOSARTAN POTASSIUM 50 MG TABLET PO SCH (09:13)
[2021-08-10] MEDS: KCL 20 MEQ/100 mL IVPB 20 MEQ/100 ML BAG IV SCH ×2 (09:33→13:30)
[2021-08-10] MEDS: SOMATROPIN SQ SCH (09:33)
[2021-08-10] MEDS: SOD FERRIC GLUC COMPLX/SUCROSE 125 MG in NA CHLORIDE 0.9% 100 ML IV SCH (10:02)
[2021-08-10] MEDS ORDERED: D5W 1,000 ML IV SCH (11:00)
[2021-08-10] MEDS ORDERED: INFLUENZA VACCINE (for 6+ mo) 0.5 ML DOSE IMVAC ONE (16:00)
[2021-08-10] MEDS ORDERED: MAGNESIUM CITRATE 300 ML BOT PO SCH (17:00)
[2021-08-10] MEDS ORDERED: GOLYTELY 4000 ML PO SCH (17:00)
[2021-08-10 17:26] LABS: Potassium 3.1 mmol/L (3.5-5.1)
[2021-08-10] MEDS: ATORVASTATIN 20 MG TAB PO SCH (20:41)
[2021-08-10] MEDS: ONDANSETRON 4 MG/2 ML VIAL IV PRN (20:47)
[2021-08-11 03:31] LABS: BUN Blood Urea Nitrogen 6 mg/dL (7-18); Bicarbonate 26 mmol/L (21-32); Glucose Level 148 mg/dL (74-106); Potassium 3.1 mmol/L (3.5-5.1); Sodium Level 148 mmol/L (136-145)
[2021-08-11] MEDS ORDERED: KCL 20 MEQ/100 mL IVPB 20 MEQ/100 ML BAG IV SCH (04:00)
[2021-08-11] MEDS: HYDRALAZINE HCL 20 MG/ML VIAL IV PRN (04:56)
[2021-08-11] MEDS: PANTOPRAZOLE INJ 80 MG in NA CHLORIDE 0.9% 250 ML IV SCH (05:59)
[2021-08-11] MEDS: INSULIN -REGULAR HUMAN 50 UNIT/0.5 ML ML SQ SCH ×2 (06:00)
--- NOTE | 2021-08-11 06:03 | P.PN ---
Subjective Date of Service: 08/11/21 Primary Care Provider: Dr. Iraheta Chief Complaint: GIB Subjective: Improving, Doing well Physical Examination - Vital Signs Temperature: 97.6 F Blood Pressure: 177/70 Pulse: 50 Respirations: 100 Pulse Ox (%): 100 - Studies Medications List Reviewed: Yes Assessment & Plan Discharge Plan: Home Plan to discharge in: 24 Hours Physician Review Additional Text: COVID: Negative EGD: Performed. Will discuss results with GI. Colonoscopy: To be done today Physical exam: General: Alert, In no apparent distress, Oriented x3 Respiratory: Clear to auscultation bilaterally, Normal air movement Cardiovascular: Regular rate/rhythm, Normal S1 S2, Systolic murmur Gastrointestinal: Normal bowel sounds, Soft and benign, Non-distended, No tenderness Musculoskeletal: No clubbing, No swelling, No tenderness Neurological: Sensation intact, Cranial nerves 3-12 intact Impression: Acute anemia secondary to GI bleed Chronic atrial fibrillation on chronic anticoagulation therapy History of chronic steroids Diabetes mellitus type 2 [id number] with Hypoglycemia Hypertension Hyperlipidemia Hypothyroidism Hypernatremia Plan: 1. Patient to have colonoscopy today. Await findings. Overall stable. Will discuss with GI about the possibility of discharge after procedure. 2. Continue to hold Eliquis. Will discuss about restarting this medication with GI and cardiology. This will be dependent on findings from EGD and colonoscopy. 3. Provide medication for pain 4. Patient remains n.p.o. in preparation for colonoscopy 5. Await results from colonoscopy. 6. Will discuss with cardiology. Continue Betapace. Continue to hold Eliquis. 7. Continue blood pressure medication. 8. Continue medication for thyroid and hyperlipidemia. 9. Continue hydrocortisone and somatropin. DVT prophylaxis: SCD CODE STATUS: Patient is DO NOT RESUSCITATE Advanced care [id number] minutes: Home at discharge Time Spent Managing Pts Care (In Minutes): 55
[2021-08-11] MEDS: LEVOTHYROXINE SOD 0.112 MG TAB PO SCH (08:30)
[2021-08-11] MEDS: HYDROCORTISONE 10 MG TAB PO SCH (09:00)
[2021-08-11] MEDS: AMLODIPINE 5 MG TAB PO SCH (09:40)
[2021-08-11] MEDS: ISOSORBIDE MONO SR 30 MG TAB PO SCH (09:40)
[2021-08-11] MEDS: MIRTAZAPINE 15 MG TAB PO SCH (09:41)
[2021-08-11] MEDS: SOTALOL HCL 80 MG TAB PO SCH (09:41)
[2021-08-11] MEDS: LOSARTAN POTASSIUM 50 MG TABLET PO SCH (09:41)
[2021-08-11] MEDS: SOMATROPIN SQ SCH (09:43)
[2021-08-11] MEDS: SOD FERRIC GLUC COMPLX/SUCROSE 125 MG in NA CHLORIDE 0.9% 100 ML IV SCH (09:43)
[2021-08-11] MEDS ORDERED: NA CHLORIDE 0.9% 1,000 ML ONE (12:29)
[2021-08-11] MEDS ORDERED: propofoL 200 MG/20 ML VIAL IV ONE ×2 (12:48)
[2021-08-11] MEDS ORDERED: LIDOCAINE 1% MPF 2 ML AMPULE ONE (12:49)
--- NOTE | 2021-08-11 13:49 | ENDO RPT ---
[address], [address] COLONOSCOPY PROCEDURE REPORT EXAM DATE: 08/11/2021 PATIENT NAME: Emelia Payan MR #: [id number] BIRTHDATE: 1940 ATTENDING: Vinnie Garcia Dr STATUS: inpatient - 7 FIRST COOK: Annemarie Bosch RN and Danelle Dejesus INDICATIONS: The patient is a 81 yr old Female here for a colonoscopy due to anemia, GI bleed PROCEDURE PERFORMED: Colonoscopy with biopsy - cold polypectomy MEDICATIONS: Per Anesthesia. ESTIMATED BLOOD LOSS: None CONSENT: The patient understands the risks and benefits of the procedure and understands that these risks include, but are not limited to: sedation, allergic reaction, infection, perforation and/or bleeding. Alternative means of evaluation and treatment include, among others: physical exam, x-rays, and/or surgical intervention. The patient elects to proceed with this endoscopic procedure. DESCRIPTION OF PROCEDURE: During intra-op preparation period all mechanical medical equipment was checked for proper function. Hand hygiene and appropriate measures for infection prevention was taken. Procedure, possible complications, alternatives including, but not limited to possibility of bleeding, perforation, tear, infection, sepsis, need for surgery, need for blood transfusion, were explained to the patient. After the risks, benefits and alternatives of the procedure were thoroughly explained, Informed consent was verified, confirmed and timeout was successfully executed by the treatment team. The patient was placed in the left lateral position. A digital rectal exam was performed and revealed no abnormalities of the rectum. After appropriate level of anesthesia, the scope was passed. The EC-[id number] ([id number]), EC-[id number] ([id number]), and [id number] ([id number]) endoscope was introduced through the anus and advanced to the cecum, which was identified by both the appendix and ileocecal valve. The quality of the prep was fair. The instrument was then slowly withdrawn as the colon was fully examined. Scope withdrawal time was 8 minutes. COLON FINDINGS: A smooth sessile polyp measuring 6 mm in size was found in the ascending colon. A polypectomy was performed with cold forceps. Mild diverticulosis was noted throughout the entire examined colon. No bleeding was noted from the diverticulosis. Small internal hemorrhoids were found. Retroflexion was not performed. Barotrauma in the right colon with slight hemorrhage noted, otherwise no active bleeding nor stigmata of recent hemorrhage. Healing shallow 2 cm laceration / trauma in rectum, probably enema trauma. The scope was then completely withdrawn from the patient and the procedure terminated. ADVERSE EVENTS: There were no complications. IMPRESSIONS: 1. 6 mm sessile polyp in the ascending colon; polypectomy was performed with cold forceps 2. Mild diverticulosis throughout the entire examined colon 3. Small internal hemorrhoids 4. Barotrauma in the right colon with slight hemorrhage noted, otherwise no active bleeding nor stigmata of recent hemorrhage 5. Healing shallow 2 cm laceration / trauma in rectum, probably enema trauma 6. Intubation to cecum RECOMMENDATIONS: 1. await biopsy results 2. avoid NSAIDS for 2 weeks 3. fiber rich diet RECALL: None scheduled due to age, 81 y[address] eSigned: Vinnie Garcia Dr 08/11/2021 1:49 PM cc: Raul Cox D.O. CPT CODES: ICD9 CODES: PATIENT NAME: Emelia Payan MR#: [id number]
[2021-08-11 13:56] VITALS: O2SAT 99
--- NOTE | 2021-08-11 15:03 | P.DS ---
Admission Date: 08/07/21 Discharge Date: 08/11/21 Primary Care Provider: Dr. Iraheta Disposition: ROUTINE DISCHARGE Discharge Condition: GOOD Reason for Admission: GIB Consultations: Cardiology-Dr. Diaz GI-Dr. Garcia Procedures: COVID: Negative EGD: Small hiatal hernia Ulcer to the antrum nonbleeding Gastritis Pathology: DIAGNOSIS Stomach, biopsy: - Gastric body and antrum type mucosa with focal chronic inactive gastritis - Focal intestinal metaplasia identified - No Helicobacter pylori organisms identified Colonoscopy: 6 mm sessile polyp in the ascending colon; polypectomy was performed with cold forceps Mild diverticulosis throughout the entire examined colon Small internal hemorrhoids Barotrauma in the right colon with slight hemorrhage noted, otherwise no active bleeding nor stigmata of recent hemorrhage Healing shallow 2 cm laceration/trauma in rectum probably enema trauma next intubation to cecum Recommendations Avoid NSAIDs for 2 weeks. Fiber rich diet Physical exam: General: Alert, In no apparent distress, Oriented x3 Respiratory: Clear to auscultation bilaterally, Normal air movement Cardiovascular: Regular rate/rhythm, Normal S1 S2, Systolic murmur Gastrointestinal: Normal bowel sounds, Soft and benign, Non-distended, No tenderness Musculoskeletal: No clubbing, No swelling, No tenderness Neurological: Sensation intact, Cranial nerves 3-12 intact Medical Problem List: Acute anemia secondary to GI bleed with EGD showing small hiatal hernia, gastritis and ulcer to the antrum and colonoscopy showing 6 mm sessile polyp status post polypectomy, mild diverticulosis, small internal hemorrhoids, healing shallow 2 cm laceration likely from enema Chronic atrial fibrillation on chronic anticoagulation therapy Iron and B12 deficiency History of chronic steroids Diabetes mellitus type 2 [id number] with Hypoglycemia Hypertension Hyperlipidemia Hypothyroidism Hypernatremia Brief History of Present Illness: 81 yo CF with chronic atrial fibrillation on eliquis, history of GIB, CHF, DM, HTN, lymphedema who presents with one week of worsening fatigue, anorexia, and abdominal pain. She also reports worsening edema in her legs. Denies constipation, melena, hematochezia. FOBT+ in the ED. Patient has had GI bleeds in the past, and has required recurrent blood transfusions in the past. GI was consulted and will see patient in the AM. H/H 7.3 Plt 130 Na 148 K 3.3 Cl 114 BNP 1088. Hospital Course: Patient presented with acute anemia secondary to GI bleed. Patient was admitted for further evaluation and treatment. Patient previously on Eliquis. Eliquis currently held. Patient was evaluated by GI and cardiology. Patient had EGD showing small hiatal hernia, gastritis and ulcer to the antrum. Colonoscopy showed 6 mm sessile polyp which was removed by polypectomy. Mild diverticulosis, small internal hemorrhoids and healing shallow 2 cm laceration likely from enema noted. Iron and B12 deficiency was identified. Patient has done well. Patient received blood. Hemoglobin now stable. At discharge Case discussed at length with cardiology. Cardiology recommends to discontinue Eliquis. GI recommends to discontinue any NSAIDs at least for 2 weeks. Discharge patient will continue with Protonix 40 mg 1 pill twice daily. Patient will also continue with vitamin B12 supplementation daily and iron supplementation twice daily. Recommend to recheck CBC in 1 week to monitor progress. Recommend follow-up with GI in 2 weeks to follow-up his hospitalization. Recommend follow-up with cardiology in 1 to 2 weeks to follow- up this hospitalization. Patient with chronic atrial fibrillation on chronic anticoagulation therapy and CAD. Due to her GI bleed Eliquis has been discontinued. This was recommended by GI and cardiology. Recommend to continue off anticoagulation therapy. This will likely be indefinite. Patient can follow-up with cardiology to follow-up further recommendation. At discharge we will continue with Betapace 160 mg daily and Imdur 30 mg daily. Patient with history of chronic steroids. At discharge she will continue with her medications including hydrocortisone 30 mg 1 pill twice daily and somatropin 0.2 mg subcu daily. Patient with hypothyroidism. At discharge she will continue with her current medication levothyroxine 112 mcg daily. Patient with hyperlipidemia. At discharge we will continue with her current medication Zocor 40 mg daily. Patient with hypertension. At discharge patient will continue with Norvasc 5 mg daily and losartan 100 mg daily. Recommend to maintain blood pressure less 130/80. Further adjustment can be done by her PCP. Patient with depression with anxiety. At discharge we will continue with her medication of clonazepam 0.5 mg 1 pill twice daily and mirtazapine 15 mg at bedtime. Vital Signs/Physical Exam: Temp Pulse Resp BP Pulse Ox 97.3 F 58 16 137/61 100 08/11/21 13:54 08/11/21 13:54 08/11/21 13:54 08/11/21 13:54 08/11/21 12:00 General: Alert, In no apparent distress, Oriented x3, Cooperative HEENT: Atraumatic Neck: Supple Respiratory: Clear to auscultation bilaterally, Normal air movement Cardiovascular: Normal pulses, Regular rate/rhythm Gastrointestinal: Normal bowel sounds, No tenderness, No masses, No rebound, No guarding Integumentary: No tenderness/swelling, No erythema, No warmth, No cyanosis Neurological: Normal speech, Normal strength at 5/5 x4 extr, Normal tone, Normal affect Laboratory Data at Discharge: WBC 4.60 K/uL (4.3-10.9) 08/10/21 05:45 Hgb 9.1 g/dL (12.0-15.0) L 08/10/21 05:45 Hct 30.2 % (36.0-45.0) L 08/10/21 05:45 Plt Count 115 K/uL (152-406) L 08/10/21 05:45 PT 14.0 SECONDS (9.5-12.5) H 08/07/21 16:00 INR 1.21 08/07/21 16:00 Sodium 148 mmol/L (136-145) H 08/11/21 03:06 Potassium 3.1 mmol/L (3.5-5.1) L 08/11/21 03:06 BUN 6 mg/dL (7-18) L 08/11/21 03:06 Creatinine 0.58 mg/dL (0.55-1.3) 08/11/21 03:06 Glucose 148 mg/dL (74-106) H 08/11/21 03:06 Phosphorus 2.9 mg/dL (2.5-4.9) 08/10/21 05:45 Magnesium 2.1 mg/dL (1.8-2.4) 08/10/21 05:45 Total Bilirubin 0.8 mg/dL (0.2-1.0) 08/10/21 05:45 AST 14 U/L (15-37) L 08/10/21 05:45 ALT 14 U/L (12-78) 08/10/21 05:45 Alkaline Phosphatase 42 U/L (45-117) L 08/10/21 05:45 Troponin I < 0.02 ng/mL (0.0-0.045) 08/08/21 02:16 Home Medications: Amlodipine [Norvasc*] 1 tab PO DAILY 07/30/20 Losartan Potassium [Cozaar] 100 mg PO DAILY 07/30/20 Sotalol HCl [Sotalol] 160 mg PO DAILY 07/30/20 Hydrocortisone [Cortef*] 30 mg PO BIDWM 03/04/21 Levothyroxine Sodium [Levothyroxine] 112 mcg PO DAILY 03/04/21 Tramadol HCl [Ultram] 1 tab PO DAILYPRN PRN 03/04/21 Isosorbide Mononitrate [Isosorbide Mononitrate ER] 30 mg PO DAILY 04/20/21 Mirtazapine 15 mg PO DAILY 04/20/21 Simvastatin 40 mg PO DAILY 04/20/21 Somatropin [Humatrope] 0.2 mg SQ DAILY 04/20/21 clonazePAM [Clonazepam] 0.5 mg PO BID PRN 04/20/21 Cyanocobalamin/Cobamamide [Vitamin B-12 5,000 Mcg Tab Sl] 1 each SL DAILY #30 tab.subl 08/10/21 Ferrous Sulfate [Ferrous Sulfate Elixir] 5 ml PO BID #300 ml 08/10/21 Pantoprazole [Protonix Tab*] 40 mg PO BIDAC 30 Days #60 tab 08/10/21 New Medications: Ferrous Sulfate [Ferrous Sulfate Elixir] 5 ml PO BID #300 ml Pantoprazole [Protonix Tab*] 40 mg PO BIDAC 30 Days #60 tab Cyanocobalamin/Cobamamide [Vitamin B-12 5,000 Mcg Tab Sl] 1 each SL DAILY #30 tab.subl Physician Discharge Instructions: OK TO DC IV AND DC HOME FOLLOW-UP WITH PRIMARY CARE PROVIDER IN 1-2 WEEKS FOLLOW-UP WITH Gastroenterology IN 1-2 WEEKS Follow-up with Cardiology in 1-2 weeks RETURN TO THE ER IF symptoms worsen CALL or TEXT DR. SIMMONS AT [phone] IF ANY QUESTIONS REGARDING HOSPITAL STAY. PLEASE CALL THE FLOOR AT [phone] IF ANY MEDICATION OR NURSING QUESTIONS. Patient presented with acute anemia secondary to GI bleed. Patient was admitted for further evaluation and treatment. Patient previously on Eliquis. Eliquis currently held. Patient was evaluated by GI and cardiology. Patient had EGD showing small hiatal hernia, gastritis and ulcer to the antrum. Colonoscopy showed 6 mm sessile polyp which was removed by polypectomy. Mild diverticulosis, small internal hemorrhoids and healing shallow 2 cm laceration likely from enema noted. Iron and B12 deficiency was identified. Patient has done well. Patient received blood. Hemoglobin now stable. At discharge Case discussed at length with cardiology. Cardiology recommends to discontinue Eliquis. GI recommends to discontinue any NSAIDs at least for 2 weeks. Discharge patient will continue with Protonix 40 mg 1 pill twice daily. Patient will also continue with vitamin B12 supplementation daily and iron supplementation twice daily. Recommend to recheck CBC in 1 week to monitor progress. Recommend follow-up with GI in 2 weeks to follow-up his hospitalization. Recommend follow-up with cardiology in 1 to 2 weeks to follow- up this hospitalization. Patient with chronic atrial fibrillation on chronic anticoagulation therapy and CAD. Due to her GI bleed Eliquis has been discontinued. This was recommended by GI and cardiology. Recommend to continue off anticoagulation therapy. This will likely be indefinite. Patient can follow-up with cardiology to follow-up further recommendation. At discharge we will continue with Betapace 160 mg daily and Imdur 30 mg daily. Patient with history of chronic steroids. At discharge she will continue with her medications including hydrocortisone 30 mg 1 pill twice daily and somatropin 0.2 mg subcu daily. Patient with hypothyroidism. At discharge she will continue with her current medication levothyroxine 112 mcg daily. Patient with hyperlipidemia. At discharge we will continue with her current medication Zocor 40 mg daily. Patient with hypertension. At discharge patient will continue with Norvasc 5 mg daily and losartan 100 mg daily. Recommend to maintain blood pressure less 130/80. Further adjustment can be done by her PCP. Patient with depression with anxiety. At discharge we will continue with her medication of clonazepam 0.5 mg 1 pill twice daily and mirtazapine 15 mg at bedtime. Diet: AHA Activity: Fall precautions Followup: Dany Iraheta MD [Primary Care Provider] - Time spent managing pt's care (in minutes): 55
[2021-08-11 18:12] VITALS: BP 138/63; TEMP 97.5
== END 2021-08-11 17:46 | disposition home or self-care (01) | DRG 378 ==
LOC: ER 14:43 → ERHOLD 19:48 → 2ND 22:28
PROVIDERS: ADMIT Hospitalist; ATTEND Family Medicine
PROC: 30233N1 Transfusion of Nonautologous Red Blood Cells into Peripheral Vein, Percutaneous Approach (ICD-10-PCS; 2021-08-08)
PROC: 0DBK8ZX Excision of Ascending Colon, Via Natural or Artificial Opening Endoscopic, Diagnostic (ICD-10-PCS; principal; 2021-08-11 13:00)
DX: K29.71 Gastritis, unspecified, with bleeding (principal); I48.20 Chronic atrial fibrillation, unspecified; I13.0 Hypertensive heart and chronic kidney disease with heart failure and stage 1 through stage 4 chronic kidney disease, or unspecified chronic kidney disease; I50.32 Chronic diastolic (congestive) heart failure; E87.0 Hyperosmolality and hypernatremia; K25.4 Chronic or unspecified gastric ulcer with hemorrhage; K63.5 Polyp of colon; K57.91 Diverticulosis of intestine, part unspecified, without perforation or abscess with bleeding; N18.2 Chronic kidney disease, stage 2 (mild); E11.22 Type 2 diabetes mellitus with diabetic chronic kidney disease; E11.649 Type 2 diabetes mellitus with hypoglycemia without coma; K44.9 Diaphragmatic hernia without obstruction or gangrene; K64.8 Other hemorrhoids; D64.9 Anemia, unspecified; K21.9 Gastro-esophageal reflux disease without esophagitis; I89.0 Lymphedema, not elsewhere classified; E53.8 Deficiency of other specified B group vitamins; F41.8 Other specified anxiety disorders; E61.1 Iron deficiency; E78.2 Mixed hyperlipidemia; E03.9 Hypothyroidism, unspecified; R13.10 Dysphagia, unspecified; T70.29XA Other effects of high altitude, initial encounter; Z88.1 Allergy status to other antibiotic agents; Z88.8 Allergy status to other drugs, medicaments and biological substances; Z79.01 Long term (current) use of anticoagulants; Z79.84 Long term (current) use of oral hypoglycemic drugs; Z79.890 Hormone replacement therapy; Z79.899 Other long term (current) drug therapy; Z66 Do not resuscitate; Z86.73 Personal history of transient ischemic attack (TIA), and cerebral infarction without residual deficits; Z90.710 Acquired absence of both cervix and uterus; Z86.718 Personal history of other venous thrombosis and embolism; Z20.822 Contact with and (suspected) exposure to COVID-19
CPT/HCPCS: 36415; 36430; 71045; 74177; 80048; 80053; 80076; 81003; 81015; 82607; 82728; 82746; 82947; 83540; 83605; 83735; 83880; 84100; 84145; 84484; 85014; 85018; 85025; 85044; 85610; 86850; 86900; 86901; 87040; 88305; 88312; 93005; 94760; 97116; 97161; 97530; 99285; C9113; J0360; J2270; J2405; J2704; J2765; J2916; J3420; J3480; J7030; J7050; P9016; Q9967; U0003

== ENCOUNTER 2021-09-10 09:30 | Emergency (ER) | payer OTHER ==
--- OUTSIDE RECORDS SUMMARY | 2021-09-10 09:38 | XMS REPORT | Continuity of Care Document ---
:1940 Author Organization [facility] t Address [address] [place] [address] Care Team Providers Name Role Phone William Iraheta Primary Care Physician Rafael Attending Clinician Unavailable KELY Attending Clinician Unavailable Augie NELSON JR Attending Clinician Unavailable JASON Attending Clinician Unavailable Juanpablo Iraheta Attending Clinician [phone] Ashley TEMPLE Attending Clinician Bonifacio STRATTON Attending Clinician [facility] Attending Clinician Unavailable Doctor Unassigned, Name [...] Clinician Unavailable ARLENE SANDOVAL Attending Clinician Unavailable KELY Admitting Clinician Unavailable EFE VILLAGOMEZ Admitting Clinician Unavailable LEEANNA_Mikki Admitting Clinician Unavailable Kely STRATTON Admitting Clinician Mesha Palomino MD Admitting Clinician LETTY HAYES Admitting Clinician Unavailable ARLENE SANDOVAL Admitting Clinician Unavailable Payers Payer Name Policy Type Policy Number Effective Date Expiration Source Date MEDICARE PART A \\T\\ B [id number] 2003 00:00:00 [place] B[place]: [id number] 2003 [employer] 00:00:00 AETNA [id number] 2000 00:00:00 MEDICAREMEDICARE A [id number] 2003 CEDRIC michael [id number] 2003 00:00:00 [place] [facility] - MGD CAREAETNA [id number] [address] INDEMNITY NON 00:00:00 [place] - [id number] Med ical 14-[facility] Problems Condition Condition Condition Status Onset Resolution Last Treating Co mments Source Name Details Category Date Date Treatment Clinician Date Recurrent Recurrent Disease Active Uni vers acute deep acute deep 03-11 it y of vein vein 00:00: [place] thrombosis thrombosis 00 Me dical (DVT) of (DVT) of Branch left lower left lower extremity extremity DVT, lower DVT, lower Disease Active U nivkriss extremity, extremity, 7 it y of proximal[place] proximal, [place] acute[place] acute, 00 Medical left left Branch Melena Melena Disease Active Univers 4-18 ity of 00:00: [place] 00 Medical Branch Osteoporos Osteoporos Disease Active U nivers is is 3-05 ity of 00:00: [place] 00 Medical Branch Degenerati Degenerati Disease Active [...] 2020-0 U nivers 1-07 ity of 00:00: [place] 00 Medical Branch Mixed Mixed Disease Active [...] 2020-0 U nivers 1-07 ity of 00:00: [place] Medical Branch Hypothyroi Hypothyroi Disease Active 2020-0 U nivers dism dism 1-07 ity of 00:00: [place] 00 Medical Branch History of History of Disease Active 2020-0 U nivers 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 00:00: [place] of breast of breast 00 [facility] Branch Gastroesop Gastroesop Disease Active 2020-0 U nivers hageal hageal 1-07 ity of reflux reflux 00:00: [place] disease disease 00 Medical Branch Anxiety Anxiety Disease Active 2020-0 Univers 1-07 ity of 00:00: [place] 00 Medical Branch Hypertensi Hypertensi Disease Active 2020-0 U nivers ve ve 1-07 ity of disorder disorder 00:00: [place] 00 Medical Branch Type 2 Type 2 Disease Active 2020-0 Univers diabetes diabetes 1-07 ity of mellitus mellitus 00:00: [place] Medical [facility] Chronic Chronic Disease Active 2020-0 Univers atrial atrial 1-07 ity of fibrillati fibrillati [place] Pancreatit Pancreatit Disease Active [facility] Center Sepsis Sepsis Disease Active [facility] Medical 00 Center Paroxysmal Paroxysmal Disease Active 2018-[address] A-fib A-fib 5-12 [facility] - 00:[facility] Medical 00 Center Chest pain Chest pain Disease Active 2016-0 U nivers 6-15 ity of 00:00: [place] Medical Branch Allergies, Adverse Reactions, Alerts Allergy Allergy Status Severity Reaction(s) Onset Inactive Treating Comm ents Source Name Type Date Date Clinician CIPROFLO DRUG Active Unknown-Cmnt Un ezekiel XACIN INGREDI 4-18 ity of 00:00: [place] 00 Medical Branch PIPERACI DRUG Active Unknown-Cmnt Un ezekiel LLIN-MICHAEL 4-18 ity of OBACTAM 00:00: 00 Medical Branch Ciproflo Propensi Active Unknown - itch Uni vers xacin ty to See comments 4-18 ity of adverse 00:00: [place] reaction 00 Medical s Branch Piperaci Propensi Active Unknown - bleeding U nivers llin-Michael ty to See comments 4-18 it y of obactam adverse 00:00: [place] reaction 00 Medical s Branch Ciproflo Propensi Active Itching [facility] xacin ty to 5 [facility] - adverse 00:00: Medical reaction 00 Center s [place] Drug Active Other (See Internal [facility] ban Intolera Comments) 01-14 bleeding Mindy es - nce 00:00: Medical 00 [place] Family History Family Member Diagnosis Comments Start Date Stop Date Source Natural father Coronary Heart Univer [facility] Natural father Heart disease [facility] Natural mother Coronary Heart Univer [facility] Natural mother Heart disease [facility] Natural sister Heart [facility] Social History Social Habit Start Date Stop Date Quantity Comments Source Alcohol intake 2021-05-05 2021-05-05 Lifetime [place] of 00:00:00 00:00:00 non-drinker [facility] ([facility]) [place] Tobacco use and 2018-11-09 2018-11-09 Never used [facility] - exposure 00:00:00 00:00:00 [facility] Sex Assigned At [birth year] Universit y of 00:00:00 00:00:00 [facility] Smoking Status Start Date Stop Date Source Never smoker [facility] Medications Ordered Filled Start Stop Current Ordering Indication Dosage Frequency Signature Comments Components Source Medication Medication Date Date Medication? Clinician (SIG) Name Name isosorbide Yes [id number] 30mg Take 1 U nivers mononitrate 7-10 tablet by ity of 30 mg 24 hr 00:00: mouth [place] tablet 00 daily. Medical Branch levothyroxi Yes [id number] 112ug Take 1 Univers ne 112 mcg 7-10 tablet by ity of tablet 00:00: mouth [place] 00 every Medical morning. Branch hydrocortis Yes [id number] 40mg Take 2 Univers one 20 mg [...] 43 as needed. Medical Branch lipase-prot Yes [id number] 1{capsu Take 1 Univers ease-amylas 7-09 107 le} capsule by it y of e 00:00: mouth 3 [place] 10,500-35,5 00 (three) Medic al 00- 61,500 times Branch unit daily with meals. polyethylen Yes [id number] 17g Take 1 Univers e glycol 7-09 Packet by ity of 3350 17 00:00: mouth 2 [place] gram powder 00 (two) Medical times Branch daily as needed for Constipati on. simethicone Yes [id number] 80mg Take 1 Univers 80 mg 7-09 tablet by ity of chewable 00:00: mouth 2 [place] tablet 00 (two) Medical times Branch daily as needed for Gas. somatropin Yes [id number] .2mg inject U nivers 0.2 mg/0.25 - 0.25 mL ity o f mL 00:00: under the [place] 00 skin Medical daily. Branch apixaban 5 0 Yes [id number] 5mg Take 1 Unive rs mg tablet - tablet by ity o f 00:00: mouth 2 [place] 00 (two) Medical times Branch daily. Indication s: atrial fibrillati on hydrocortis Yes [id number] 20mg Take 1 Univers one 20 mg - tablet by ity o f tablet 00:00: mouth [place] 00 every Medical evening. Branch mirtazapine Yes [id number] 15mg Take 1 Univers 15 mg - tablet by ity of tablet 00:00: mouth at [place] 00 bedtime. Medical Branch hydrocortis Yes [id number] 100mg 2 mL by Univers one sod 03-13 Intramuscu ity of succ 100 00:00: lar route [place] mg/2 mL 00 as needed Medical injection (As rescue Bran ch for low cortisol if there is low BP, N/V.). acetaminoph 202- No [id number] 650mg Take 2 Univers en 325 mg [...] patch 00 daily. Medical Branch sotaloL 80 0 Yes 80mg Take 1 Unive rs mg [...] every Medical evening. Branch cholecalcif 2019-0 Yes [id number] [facility], 3-07 50,000 [facility] [...] 12:12: daily. Medical capsule 28 Center potassium 0 Yes 10meq QD Take [address] chloride 3-07 mEq by [facility] - (KLOR-CON) 12:12: mouth Medica l 10 MEQ CR 28 daily. Center tablet LORazepam 2019-0 Yes .5mg Take 0.[address] (ATIVAN) 3-07 mg by [facility] - 0.5 MG 12:12: mouth as Medical tablet 28 needed for Center Anxiety. somatropin 2018-0 Yes Inject [facility] t 5 mg/1.5 mL 3-07 subcutaneo Domitila kes - (3.3 mg/mL) 12:12: usly. Medic al PnIj 28 Center cholecalcif 2019-0 Yes [id number] [facility] gh[facility], 3-07 50,000 [facility] [...] MG tablet 12:12: daily. Medica l 27 [place] losartan Yes 100mg QD Take 100 [facility] [...] MG tablet 12:12: daily. Medica l 27 [place] losartan Yes 100mg QD Take [address] (COZAAR) 3-07 mg by [facility]ukes - 100 MG 12:12: mouth Medical tablet 27 daily. [place] methscopola Yes 5mg QD Take 5 mg [...] 00:00: mouth Medical tablet 00 daily . [place] gabapentin 2017-0 Yes 600mg Q.[id number] Take [address] (NEURONTIN) 4-16 [id number] mg by L ukes - 600 MG 00:00: 3D mouth 3 Medical tablet 00 (three) Center times daily . gabapentin 2018-0 Yes 600mg Q.[id number] Take [address] (NEURONTIN) 4-16 [id number] mg by L ukes - 600 MG 00:00: 3D mouth 3 Medical tablet 00 (three) Center times daily . liothyronin 2017-0 Yes 5ug QD Take [address] e (CYTOMEL) 3-21 by mouth Luke s - 5 MCG 00:00: daily . Medical tablet 00 [place] liothyronin 2017-0 Yes 5ug QD Take [address] e (CYTOMEL) 3-21 by mouth Luke s - 5 MCG 00:00: daily . Medical tablet 00 [place] Immunizations Ordered Filled Immunization Date Status Comments [facility] e Immunization Name Name SARS-COV-2 COVID-19 2020-10-25 Completed Unive rsity of MODERNA VACCINE 00:00:00 [facility] SARS-COV-2 COVID-19 2020-09-27 Completed Unive rsity of MODERNA VACCINE 00:00:00 [facility] Branch Influenza Virus 2020-05-07 Completed Universit y of Vaccine Quad IM 00:00:00 [place] Med ical Multi-dose 6+ MO Branch Influenza Virus 2019-07-10 Completed Universit y of Vaccine Quad IM 00:00:00 [facility] ical Multi-dose 6+ MO Branch Vital Signs Vital Name Observation Time Observation Value Comments Source Systolic blood 2021-03-13 20:52:00 132 mm[Hg] Univer sity of [facility] Diastolic blood 2021-03-13 20:52:00 69 [facility]Hg[facility] 2021-03-13 20:52:00 63 /min [facility] Body temperature 2021-03-13 20:52:00 36.94 Noemy [facility] Respiratory rate 2021-03-13 20:52:00 18 /min [facility] Oxygen saturation in 2021-03-13 20:52:00 97 /min [facility] Arterial blood by [facility] Pulse oximetry [place] Body height 2021-03-11 07:30:00 162.6 cm [facility] Body weight 2021-03-11 07:30:00 76 kg bed scale [facility] BMI 2021-03-11 07:30:00 28.76 kg/m2 [facility] Procedures Procedure Date / Time Performing Clinician Source Performed EXTERNAL PROVIDER RECORDS 2021-03-24 05:01:00 Doctor Unassigned, [facility] POCT GLUCOSE (AUTOMATED) 2021-03-13 16:51:00 Josy Syed Uni [facility] POCT GLUCOSE (AUTOMATED) 2021-03-13 13:05:[address] [facility] CBC WITHOUT DIFF 2021-03-13 11:24:00 Pamela Terry [facility] BASIC METABOLIC PANEL 2021-03-13 11:24:00 Pamela Terry [facility] (NA, K, CL, CO2, GLUCOSE, Medica l Branch BUN, CREATININE, CA) POCT GLUCOSE (AUTOMATED) 2021-03-13 05:07:00 Josy Syed [facility] POCT GLUCOSE (AUTOMATED) 2021-03-12 23:47:00 Kely, Mukaila [facility] CBC WITHOUT DIFF 2021-03-12 23:30:00 Harrison [facility] POCT GLUCOSE (AUTOMATED) 2021-03-12 20:23:[address] [facility] POCT GLUCOSE (AUTOMATED) 2021-03-12 19:28:00 Josy Syed [facility] IR IVC FILTER INSERTION 2021-03-12 18:43:35 Alvaro Shields [facility] POCT GLUCOSE (AUTOMATED) 2021-03-12 13:12:00 Josy Syed [facility] BASIC METABOLIC PANEL 2021-03-12 10:25:[address] [facility] (NA, K, CL, CO2, GLUCOSE, Medica l Branch BUN, CREATININE, CA) CBC WITH DIFF 2021-03-12 10:25:00 Harrison [facility] MAGNESIUM 2021-03-12 10:25:00 Harrison [facility] ACTIVATED PARTIAL 2021-03-12 05:01:00 Alvaro Shields [facility] POCT GLUCOSE (AUTOMATED) 2021-03-12 01:11:[address] [facility] POCT GLUCOSE (AUTOMATED) 2021-03-11 21:16:[address] [facility] BASIC METABOLIC PANEL 2021-03-11 20:47:[address] [facility] (NA, K, CL, CO2, GLUCOSE, Medica l Branch BUN, CREATININE, CA) ACTIVATED PARTIAL 2021-03-11 18:53:00 Alvaro Shields [facility] US LOWER EXTREMITY VEIN 2021-03-11 17:18:10 Alvaro Shields [facility] WITH COMPRESSION Medical Branch BILATERAL (ONLY FOR RULE OUT DVT) CT ABDOMEN PELVIS W 2021-03-11 17:16:28 Alvaro Shields [facility] CONTRAST [facility] Branch POCT GLUCOSE (AUTOMATED) 2021-03-11 16:50:[address] [facility] POCT GLUCOSE (AUTOMATED) 2021-03-11 14:31:00 [facility] (ID NOW RAPID 2021-03-11 13:18:00 [facility] Shields [facility] TESTING) Medical Branch LAB ONLY COVID 2021-03-11 13:18:00 Alvaro Shields [facility] INTERPRETATION Medical Center Clinic CBC WITH DIFF 2021-03-11 13:17:[address] [facility] FREE T4 2021-03-11 13:17:00 Alvaro Shields [facility] PROTHROMBIN TIME / INR 2021-03-11 13:17:00 [facility]varo Shields [facility] IRON PANEL 2021-03-11 13:17:[address] [facility] COMP. METABOLIC PANEL 2021-03-11 13:15:00 Alvaro Shields [facility] ([id number]) Medical Branch MAGNESIUM 2021-03-11 13:15:[address] [facility] FREE T3 2021-03-11 13:15:00 Alvaro Shields [facility] FERRITIN SERUM 2021-03-11 13:15:00 Alvaro Shields [facility] ACTIVATED PARTIAL 2021-03-11 10:38:00 Alvaro Shields [facility] HOSPITAL ADMISSION 2021-03-11 05:01:00 Doctor Unassigned, [facility] Plan of Care Planned Activity Planned Date [...] 00:00:00 (1 of 1 - Medical Center [id number] PCV13) [code = PNEUMOCOCCAL 65+ YRS (1 of 1 - [id number] PCV13)] Future Scheduled 2003 PNEUMOCOCCAL 65+ YRS [facility] - Test 00:00:00 (1 of 1 - Medical Center [id number] PCV13) [code = PNEUMOCOCCAL 65+ YRS (1 of 1 - [id number]_Frzozoj PCV13)] Future Scheduled 1988 SHINGLES VACCINES (1 [...] Date/Time Type Type Clinicians Facility Department ID 2021-10-07 Inpatient Rafael, [facility] OUTD [id number] [facility] 07:30:00 Kemar [id number] [facility] 2021-10-05 Inpatient EL Rafael, HCACL OUTD [id number] [facility] 11:30:00 Kemar [id number] [facility] 2021-03-11 Inpatient U KELY [facility] [id number] Univers 02:03:00 JOSY [facility] 2020-12-21 Inpatient U RUBI [facility] [id number] Univers 05:34:00 MATT BOYD [facility] 2021-09-01 2021-09-01 Outpatient ERICKSON_R [facility] [id number] [place] 10:43:00 10:43:00 228 [facility] 2021-07-02 2021-07-02 Outpatient ERICKSON_R [facility] [id number] - [place] 10:49:00 10:49:00 028 [facility] 2021-07-02 2021-07-02 Outpatient Leeanna [facility] [id number] 00:00:00 00:00:00 Dnay [id number] Juanpablo [id number] 2021-06-23 2021-06-23 Outpatient ERICKSON_R [facility] [id number] [place] 01:20:00 01:20:00 019 [facility] 2021-05-19 2021-05-19 Outpatient ERICKSON_R [facility] [id number] - [place] 01:20:00 01:20:00 914 [facility] 2021-05-05 2021-05-05 Teodoro Ashley Lynne 1.2.840.3 [id number] [facility] 00:00:00 00:00:00 Management 37360.1.1 i ty of 3.104.2.7 [place] .3.531543 Medica l .[address] [place] [address] 2021-04-28 2021-04-28 [facility] Jose Eduardo Valdovinos 1.2.840.7 [id number] [facility] 07:31:12 23:59:00 Encounter Dariusz Clinic 27842.1.1 ity of 3.104.2.7 [place] .3.117647 Medica l .[address] [place] [address] 2021-04-13 2021-04-13 Outpatient ERICKSON_R [facility] [id number] Heath 11:47:00 11:47:00 809 [facility] 2021-04-13 2021-04-13 Outpatient Leeanna [facility] [id number] 00:00:00 00:00:00 Dany [id number] Juanpablo [id number] 2021-04-07 2021-04-07 Outpatient ERICKSON_R [facility] [id number] Heath 12:33:00 12:33:00 803 Commun i ty [facility] 2021-04-06 2021-04-06 Outpatient ERICKSON_R [facility] [id number] Heath 04:34:00 04:34:00 802 Commun i [facility] 2021-04-06 2021-04-06 Outpatient Leeanna [facility] [id number] 00:00:00 00:00:00 Dany [id number] Juanpablo [id number] 2021-04-01 2021-04-01 Outpatient ERICKSON_R [facility] [id number] Heath 01:49:00 01:49:00 728 [facility] 2021-03-24 2021-03-24 Orders Doctor MIRA [id number] 00:00:00 00:00:00 Only Unassigned, PABLO 350.1.13.10 [place] [facility] 4.2.7.2.686 [id number] 2021-03-24 2021-03-24 Orders Doctor 1.2.840.8 [id number] Univers 00:00:00 00:00:00 Only Unassigned, 49769.1.1 ity of [place] 3.104.2.7 [place] .3.274183 Medica l .8 Branch 2021-03-20 2021-03-20 Outpatient ERICKSON_R [facility] [id number] Heath 10:54:00 10:54:00 716 Commun i ty [facility]osp[facility] Clinics 2021-03-20 2021-03-20 Outpatient Leeanna [facility] [id number] 00:00:00 00:00:00 Dany [id number] Juanpablo [id number] 2021-03-18 2021-03-18 Telephone Harrison [facility] [id number] [id number] 00:00:00 00:00:00 Pamela PRIMARY 350.1.13.10 CARE 4.2.7.2.686 PAV[place]ON [id number] 2021-03-18 2021-03-18 Telephone Harrison, 1.2.840.9 [id number] Univers 00:00:00 00:00:00 Pamela 22193.1.1 ity of 3.104.2.7 [place] .3.358279 Medica l .8 Branch 2021-03-16 2021-03-16 Transition Guillermina Barkern 1.2.840.114 [id number] 00:00:00 00:00:00 of Care Chelsey Dunney 350.1.13.10 [place] 4.2.7.2.686 [id number] 2021-03-16 2021-03-16 Transition Lucero, 1.2.840.1 [id number] Univers 00:00:00 00:00:00 of Care Chelsey 59955.1.1 ity of 3.104.2.7 [place] .3.077385 Medica l .8 Branch 2021-03-11 2021-03-13 [facility].840.114 [id number] 02:03:00 17:36:00 Encounter Josy Mcdonald 350.1.13.10 [facility] 4.2.7.2.686 [id number] 2021-03-11 2021-03-13 [facility] 1.2.840.2 [id number] [facility] 02:03:00 17:36:00 Encounter Josy 07646.1.1 it y of 3.104.2.7 [place] .3.103107 Medica l .8 Branch 2021-03-12 2021-03-12 Case MEHDI SerranoIT 1.2.466.490 [id number] 00:00:00 00:00:00 Management [facility] 350.1.13.10 CLINICS 4.2.7.2.686 [id number] 2021-03-12 2021-03-12 Case Zach, 1.2.840.0 [id number] Univers 00:00:00 00:00:00 Management Avtar 69736.1.1 i ty 3.104.2.7 [facility].898715 Medica l .8 Branch 2021-02-25 2021-02-25 Outpatient SAVANAKIKI_R [facility] [id number] Heath 01:36:00 01:36:00 623 Commun i ty Hospita [facility] 2021-02-20 2021-02-20 Orders Doctor MIRA 1.2.840.114 [id number] 00:00:00 00:00:00 Only Unassigned, PABLO 350.1.13.10 [place] [facility] 4.2.7.2.686 [id number] 2021-01-22 2021-01-22 Outpatient SAVANAKIKI_R [facility] [id number] Heath 01:03:00 01:03:00 520 Commun i ty Hospita [facility] 2021-01-21 2021-01-21 Orders Doctor MIRA 1.2.840.114 [id number] 00:00:00 00:00:00 Only Unassigned, PABLO 350.1.13.10 [place] [facility] 4.2.7.2.686 [id number] 2021-01-08 2021-01-08 Orders Doctor MIRA 1.2.840.114 [id number] 00:00:00 00:00:00 Only Unassigned, PABLO 350.1.13.10 [place] [facility] 4.2.7.2.686 [id number] 2021-01-05 2021-01-05 Transition Doyle Quan 1.2.840.114 [id number] 00:00:00 00:00:00 of Care Todd Del Angel 350.1.13.10 Ricardo 4.2.7.2.686 [id number] 2020-12-21 2021-01-02 [facility] Latoya Villagomez 1.2.8 40.114 [id number] 05:34:00 18:49:00 Encounter Fabrizio Samuels 350.1.13.10 [facility] 4.2.7.2.686 Tiesha Palomino [id number] 2020-12-27 2020-12-27 Surgery [place] 1.2.840.114 [id number] 14:55:00 16:17:00 [place] 350.1.13.10 [place] [address].2.7.2.686 [id number] 2020-12-22 2020-12-22 Surgery [facility] 1.2.141.194 [id number] 10:40:00 11:14:00 [place]AL 350.1.13.10 [place] [address].2.7.2.686 [facility] [id number] 2020-12-19 2020-12-19 Outpatient ERICKSON_R [facility] [id number] Heath 11:02:00 11:02:00 416 Commun i ty Hospita [facility] Clinics 2020-12-19 2020-12-19 Outpatient Leeanna [facility] [id number] 00:00:00 00:00:00 Dany [id number] Juanpablo [id number] 2020-12-18 2020-12-18 Outpatient ERICKSON_R [facility] [id number] [place] 01:01:00 01:01:00 415 Commun i ty Hospita [facility] Clinics 2020-11-17 2020-11-17 Outpatient ERICKSON_R [facility] [id number] Heath 04:44:00 04:44:00 315 Commun i ty Hospita [facility] Clinics 2020-11-17 2020-11-17 Outpatient Leeanna, [facility] [id number] 00:00:00 00:00:00 Dany [id number] Juanpablo [id number] 2020-11-10 2020-11-10 Outpatient ERICKSON_R [facility] [id number] Heath 11:28:00 11:28:00 308 Commun i ty Hospita l Clinics 2020-11-10 2020-11-10 Outpatient Leeanna [facility] [id number] 00:00:00 00:00:00 Dany [id number] Juanpablo [id number] 2020-10-30 2020-10-30 Outpatient ERICKSON_R [facility] [id number] Heath 09:13:00 09:13:00 225 Commun i ty Hospita l Clinics 2020-10-27 2020-10-27 Outpatient ERICKSON_R [facility] [id number] Heath 02:56:00 02:56:00 222 Commun i ty Hospita l Clinics 2020-10-27 2020-10-27 Outpatient Leeanna [facility] [id number] 00:00:00 00:00:00 Dany [id number] Juanpablo [id number] 2020-10-27 2020-10-27 Outpatient Leeanna [facility] [id number] 00:00:00 00:00:00 Dany [id number] Juanpablo [id number] 2020-10-21 2020-10-21 Outpatient ERICKSON_R [facility] [id number] Heath 11:44:00 11:44:00 216 Commun i ty Hospita l Clinics 2020-10-17 2020-10-17 Outpatient ERICKSON_R [facility] [id number] Heath 11:23:00 11:23:00 212 Commun i ty Hospita l Clinics 2020-10-17 2020-10-17 Outpatient Leeanna [facility] [id number] 00:00:00 00:00:00 Dany [id number] Juanpablo [id number] 2020-10-13 2020-10-13 Outpatient ERICKSON_R [facility] [id number] Heath 11:56:00 11:56:00 208 Commun i ty Hospita l Clinics 2020-10-06 2020-10-06 Outpatient ERICKSON_R [facility] [id number] Heath 01:03:00 01:03:00 201 Commun i ty Hospita l Clinics 2020-09-30 2020-09-30 Outpatient ERICKSON_R [facility] [id number] Heath 02:16:00 02:16:00 126 Commun i ty Hospita [facility] Clinics 2020-09-26 2020-09-26 Outpatient ERICKSON_R [facility] [id number] Heath 09:12:00 09:12:00 122 Commun i ty Hospita l Clinics 2020-09-23 2020-09-23 Outpatient ERICKSON_R [facility] [id number] Heath 09:29:00 09:29:00 119 Commun i ty Hospita l Clinics 2020-09-23 2020-09-23 Outpatient Leeanna [facility] [facility] [id number] 00:00:00 00:00:00 Dany [id number] Juanpablo [phone] [id number] 2020-09-12 2020-09-12 Outpatient ERICKSON_R [facility] [id number] [place] 12:08:00 12:08:00 [facility] 2020-09-11 2020-09-11 Outpatient ERICKSON_R [facility] [id number] [place] 05:56:00 05:56:00 [facility] 2020-09-08 2020-09-08 Outpatient ERICKSON_R [facility] [id number] [place] 10:49:00 10:49:00 104 [facility] 2020-09-08 2020-09-08 Outpatient Leeanna [facility] [id number] 00:00:00 00:00:00 Dany [id number] Juanpablo [phone] [id number] 2020-09-01 2020-09-01 Outpatient ERICKSON_R [facility] 8298 - [place] 01:03:00 01:03:00 228 [facility] Results Test Description Test Time Test Comments Results Result Comments Source POCT GLUCOSE (AUTOMATED) 2021-03-13 16:52:34 Test Item Value Reference Range Interpretation Comme nts POCT GLU (test code = 5924703702) 152 mg/dL 70-110 H Lab Interpretation (test code = 77418-5) [facility]normal [facility] (NA, K, CL, CO2, GLUCOSE, BUN, CREATININE, CA)2021-03-13 12:03:23 Test Item Value Reference Range Interpretation Comments NA (test code = 139 mmol/L 135-145 2725356244) K (test code = 3.5 mmol/L 3.5-5.0 8241162139) CL (test code = 112 mmol/L 98-108 H 3546027313) CO2 TOTAL (test code = 27 mmol/L 23-31 8633387049) AGAP (test code = <1 2-16 L 9019213229) BUN (test code = 22 mg/dL 7-23 4338274123) GLUCOSE (test code = 125 mg/dL 70-110 H 6740633155) CREATININE (test code = 0.64 mg/dL 0.50-1.04 0868613741) CALCIUM (test code = 7.9 mg/dL 8.6-10.6 L 1393577731) eGFR (test code = mL/min/1.73m2 8517190242) INDRA (test code = INDRA) Association of [...] tests). Lab Interpretation Abnormal (test code = 27363-5) [facility] WITHOUT [id number] 11:39:33 Test Item Value Reference Range Interpretation Comments WBC (test code = 6690-2) See_Comment L [A utomated message] The system [employer] generated this result transmit komal reference range : 4.30 - 11.10 10*3/?L. The reference range was not used to interpret this result as normal/abnormal . RBC (test code = 789-8) See_Comment L [Au tomated message] The system [employer] generated this result transmit komal reference range [...] See_Comment L [Au tomated message] The system [employer] generated this result transmit komal reference range : 166 - 358 10*3/?L. The reference range was not used to interpret this result as normal/abnormal . MPV (test code = 11.1 fL 9.5-12.9 73285-1) RDW-CV (test code = 16.7 % 12.0-15.5 H 788-0) RDW-SD (test code = 56.3 fL 39.0-49.9 H 02865-2) NRBC x10^3 (test code = <0.01 See_Comment [Au tomated message] 3641480746) The system [employer] generated this result transmit komal reference range : 10*3/?L. The reference range was not used to interpret this result as normal/abnormal . NRBC/100 WBC (test code See_Comment [Au tomated message] = 7982855185) The system [facility] generated this result transmit komal reference range : 0.0 - 10.0 /100 WBC s. The reference r ming was not used to interpret this result as normal/abnormal . IPF % (test code = 5785636994) Lab Interpretation (test Abnormal code = 84937-1) [facility] 11:03:56 Test Item Value Reference Range Interpretation Comments MAGNESIUM (test code = 0451919235) 2.6 mg/dL 1.7-2.4 H Lab Interpretation (test code = Abnormal 84622-1) [facility] WITH [id number] 10:36:35 Test Item Value Reference Range Interpretation [...] (test code = 56.6 fL 39.0-49.9 H 66367-9) RDW-CV (test code = 16.4 % 12.0-15.5 H 788-0) PLT (test code = See_Comment L [Automated 777-3) message] The sy stem which generated this result transmitted reference range : 166 - 358 10*3/ ?L. The reference r ming was not used to interpret this result as normal/abnormal . MPV (test code = 11.6 fL 9.5-12.9 59817-3) NRBC/100 WBC (test See_Comment [Automat ed code = 5912742744) message] The system which generated this result transmitted reference range : 0.0 - 10.0 /100 WBCs. The refer ence range was not u sed to interpret th is result as normal/abnormal . NRBC x10^3 (test code <0.01 See_Comment [Auto mated = 7541463623) message] The s ystem which generated this result transmitted reference range : 10*3/?L. The reference range was not used to interpret this result as normal/abnormal . GRAN MAT (NEUT) % 77.8 % (test code = 770-8) IMM GRAN % (test code 0.30 % = 0617286799) LYMPH % (test code = 16.7 % 736-9) MONO % (test code = 4.4 % 5905-5) EOS % (test code = 0.5 % 713-8) BASO % (test code = 0.3 % 706-2) GRAN MAT x10^3(ANC) 2.84 10*3/uL 1.88-7.09 (test code = 5230445371) IMM GRAN x10^3 (test <0.03 0.00-0.06 code = 0265641789) LYMPH x10^3 (test code 0.61 10*3/uL 1.32-3.29 L = 731-0) MONO x10^3 (test code 0.16 10*3/uL 0.33-0.92 L = 742-7) EOS x10^3 (test code = <0.03 0.03-0.39 L 711-2) BASO x10^3 (test code <0.03 0.01-0.07 = 704-7) Lab Interpretation Abnormal (test code = 62412-5) [facility] with Heparin Drip)2021-03-12 05:32:09 Test Item Value Reference Range Interpretation Comments APTT Patient (test code >150 See_Comment HH [Au tomated message] = 3173-2) The system [employer] generated this result transmitted ref erence range: 26 - 36 Seconds. The reference range was not used to int erpret this result as normal/abnormal . Lab Interpretation (test Abnormal code = 97364-0) [facility] [id number] 15:29:50 Test Item Value Reference Range Interpretation Comments IRON (test code = 5600701531) 53 ug/dL 50-160 TIBC (test code = 4044745131) 329 ug/dL 250-410 % FE SAT (test code = 9724742180) 16 % 20-50 L Lab Interpretation (test code = Abnormal 06108-7) [facility] [id number] 15:14:27 Test Item Value Reference Range Interpretation Comments FREE T4 (test code = See_Comment [Autom ated message] 6821966430) The system [employer] generated this result transmitted ref erence range: 0.78 - 2 .20 ng/dL:. The ref erence range was not u sed to interpret this result as normal/abnor mal. Lab Interpretation (test Normal code = 65886-7) [facility] [id number] 14:53:03 Test Item Value Reference Range Interpretation Comments FERRITIN (test code = 27.3 ng/mL 11.0-264.0 3222594939) INDRA (test code = INDRA) Biotin has been reported to cause a negative bias, interpret results relative to patient's use of biotin. Lab Interpretation (test Normal code = 87114-5) [facility] [id number] 14:31:57 Test Item Value Reference Range Interpretation Comments FREE T3 (test code = 1603673388) 1.71 pg/mL 2.77-5.27 L Lab Interpretation (test code = Abnormal 92264-2) [facility] MET[facility]OLIC PAN[facility] (24049)2021-03-11 14:26:43 Test Item Value Reference Range Interpretation Comments NA (test code = 141 mmol/L 135-145 4963948973) K (test code = 2.9 mmol/L 3.5-5.0 LL 9965864813) CL (test code = 106 mmol/L 98-108 6559274764) CO2 TOTAL (test code = 33 mmol/L 23-31 H 5361186309) AGAP (test code = 2-16 4454777487) BUN (test code = 14 mg/dL 7-23 6405352448) GLUCOSE (test code = 63 mg/dL 70-110 L 2495322353) CREATININE (test code = 0.53 mg/dL 0.50-1.04 5540550304) TOTAL BILI (test code = 0.5 mg/dL 0.1-1.7 5369342138) CALCIUM (test code = 7.9 mg/dL 8.6-10.6 L 5232549103) T PROTEIN (test code = 5.8 g/dL 6.3-8.2 L 0816063175) ALBUMIN (test code = 2.9 g/dL 3.5-5.0 L 6556734134) ALK PHOS (test code = 33 U/L 34-122 L 3442208602) ALTv (test code = 8 U/L 5-35 1742-6) AST(SGOT) (test code = 26 U/L 13-40 6184710956) eGFR (test code = mL/min/1.73m2 1905723899) INDRA (test code = INDRA) Association of [...] tests). Lab Interpretation Abnormal (test code = 73010-9) [facility]PROT[facility] / [id number] 13:40:32 Test Item Value Reference Range Interpretation Comments PROTIME PATIENT (test See_Comment H [Auto mated message] code = 5964-2) The system [employer] generated this result transmitted ref erence range: 10.1 - 1 2.6 Seconds. The reference range was not used to int erpret this result as normal/abnormal . INR (test code = 6301-6) Nor mal INR <1.1; Warfarin Therap eutic range 2.0 to 3. 0 or 2.5 to 3.5, dep ending upon the indica tions. Lab Interpretation (test Abnormal code = 01446-2) [facility] W/ [id number] 14:50:00 Test Item Value Reference Range Interpretation [...] 1584) SOURCE(BEAKER) (test code = Urine, Voided 0395) [id number] 13:11:00 Test Item Value Reference Range Interpretation Comments LIPASE (BEAKER) (test code = 749) 45 U/L 8-78 BASIC METABOLIC [id number] 13:11:00 Test Item Value Reference Range Interpretation [...] APPLICABLE FOR DIALYSIS PATIEN TS. HEPATIC FUNCTION [id number] 13:11:00 Test Item Value Reference Range Interpretation [...] (test code = 14 U/L 6-55 347) [id number] 13:02:00 Test Item Value Reference Range Interpretation [...] PERCENT (BEAKER) (test code = 2801) TISSUE [id number] 13:06:00Surgical Pathology Report Case: [id number] Authorizing Provider: Luiz Hayes Collected: 03/14/2018 1115 Ordering Location: [facility] Endoscopy Received: 03/14/2018 1351 Services Pathologist: Mara Barboza MD Specimens: A) -Polyp, Duodenum B) - Stomach, Antrum, bx C) - Biopsy, Gastric, gastric body D) - Biopsy, Esophagus, random THIS ADDENDUM IS ISSUED TO REPORT THE RESULT OF IMMUNOHISTOCHEMICAL STUDY FOR HELICOBACTER PYLORI OM SPECIMEN B: - NEGATIVE CPT CODE: 58844Jmebnzst electronically signed by Mara Barboza MD on [...] MALIGNANCY SEEN Signing Pathologist Direct Phone Line: [phone] signed by Mara Barboza MD on 03/17/2018 at 10:35 [id number] X 4; 19085 X 2A. Polyp, duodenum. B. Stomach antrum. [...] the diagnostic report above:WARTHIN-STARRY X 2 POCT-GLUCOSE [id number] 12:41:00 Test Item Value Reference Range Interpretation Comments POC-GLUCOSE METER 75 mg/dL 70-110 TESTED AT [facility] 67 [facility] (test code = [place] [address] 1538) BLOOD [id number] 06:00:00 Test Item Value Reference Range Interpretation Comments CULTURE (BEAKER) (test No growth in 5 days code = 1095) BLOOD [id number] 06:00:00 Test Item Value Reference Range Interpretation Comments CULTURE (BEAKER) (test No growth in 5 days code = 1095) POCT-GLUCOSE [id number] 12:32:00 Test Item Value Reference Range Interpretation Comments POC-GLUCOSE METER 217 mg/dL 70-110 H TESTED AT [facility] 6720 ([facility] (test code = MICAH Kaye [facility] 1538) [address] POCT-GLUCOSE [id number] 08:36:00 Test Item Value Reference Range Interpretation Comments POC-GLUCOSE METER 92 mg/dL 70-110 TESTED AT [facility] 6720 ([facility]) (test code = [facility] Mikki [facility] [address] 1538) COMPREHENSIVE METABOLIC [id number] 04:59:00 Test Item Value Reference Range Interpretation [...] S NOT APPLICABLE FOR DIALYSIS PATIEN TS. [id number] 04:50:00 Test Item Value Reference Range Interpretation Comments MAGNESIUM (BEAKER) (test code = 1.7 mg/dL 1.6-2.6 627) PROTHROMBIN TIME/[id number] 04:35:00 Test Item Value Reference Range Interpretation [...] PERCENT (BEAKER) (test code = 2801) POCT-GLUCOSE [id number] 22:13:00 Test Item Value Reference Range Interpretation Comments POC-GLUCOSE METER 194 mg/dL 70-110 H TESTED AT [facility] 67 ([facility]) (test code = [facility] 1538) [address] POCT-GLUCOSE [id number] 18:14:00 Test Item Value Reference Range Interpretation Comments POC-GLUCOSE METER 195 mg/dL 70-110 H TESTED AT [place] [address] ([facility]) (test code = [facility] 1538) [address] POCT-GLUCOSE [id number] 12:20:00 Test Item Value Reference Range Interpretation Comments POC-GLUCOSE METER 224 mg/dL 70-110 H TESTED AT [place] [address] ([facility]) (test code = [facility] 1538) [address] [id number] 08:55:00 Test Item Value Reference Range Interpretation Comments LIPASE ([facility] (test code = 749) 471 U/L 8-78 H POCT-GLUCOSE [id number] 08:12:00 Test Item Value Reference Range Interpretation Comments POC-GLUCOSE METER 128 mg/dL 70-110 H TESTED AT [facility] 6720 (BEAKER) (test code = [place] 1538) [address] [id number] 04:12:00 Test Item Value Reference Range Interpretation Comments T3 TOTAL (BEAKER) (test code = 656) 41 ng/dL 48-159 L T3, [id number] 04:11:00 Test Item Value Reference Range Interpretation Comments T3 FREE (BEAKER) (test code = 908) 1.31 pg/mL 1.71-3.71 L COMPREHENSIVE METABOLIC [id number] 04:01:00 Test Item Value Reference Range Interpretation [...] S NOT APPLICABLE FOR DIALYSIS PATIEN TS. [id number] 03:54:00 Test Item Value Reference Range Interpretation Comments MAGNESIUM (BEAKER) (test code = 1.7 mg/dL 1.6-2.6 627) PROTHROMBIN TIME/[id number] 03:53:00 Test Item Value Reference Range Interpretation [...] PERCENT (BEAKER) (test code = 2801) POCT-GLUCOSE [id number] 22:34:00 Test Item Value Reference Range Interpretation Comments POC-GLUCOSE METER 252 mg/dL 70-110 H TESTED AT [facility] 6720 (BEAKER) (test [place] = [place]) [address] [id number] 19:36:00 Test Item Value Reference Range Interpretation Comments MAGNESIUM (BEAKER) (test code = 1.6 mg/dL 1.6-2.6 627) BASIC METABOLIC [id number] 19:36:00 Test Item Value Reference Range Interpretation [...] 697) EGFR (MATTHEW) (test 76 mL/min/1.73 ESTIMA KOMAL GFR IS code = 1092) sq m NOT ACCURATE CREATININE CLEARANCE IN PREDICTING GLOMERULAR FILTRATION RATE . ESTIMATED GFR I S NOT APPLICABLE FOR DIALYSIS PATIEN TS. URINE [id number] 11:51:00 Test Item Value Reference Range Interpretation Comments CULTURE (MATTHEW) (test code = 1095) No growth POCT-GLUCOSE [id number] 11:42:00 Test Item Value Reference Range Interpretation Comments POC-GLUCOSE METER 205 mg/dL 70-110 H TESTED AT [place] [address] ([facility]) (test code = [employer] [facility] 1538) [address] POCT-GLUCOSE [id number] 08:08:00 Test Item Value Reference Range Interpretation Comments POC-GLUCOSE METER 119 mg/dL 70-110 H TESTED AT [place] [address] ([facility]) (test code = [employer] [facility] 1538) [address] C. DIFFICILE GDH [id number] 07:40:00 Test Item Value Reference Range Interpretation Comments CDT TOXIN (test code Negative Negative = 7852606458) CDT GDH ANTIGEN Positive Negative A C. difficile present but (test code = toxin not detec komal. 9305446000) Indicates colon ization with non-toxige lizbeth strain [...] of kit performance was done by the [facility] Microbiology Lab prior to clinical use.POCT-GLUCOSE [id number] 06:37:00 Test Item Value Reference Range Interpretation Comments POC-GLUCOSE METER 141 mg/dL 70-110 H TESTED AT [place] [address] ([facility]) (test code = [employer] [facility] 1538) [address] COMPREHENSIVE METABOLIC [id number] 04:48:00 Test Item Value Reference Range Interpretation [...] NOT APPLICABLE FOR DIALYSIS PATIEN TS. PROTHROMBIN TIME/[id number] 04:40:00 Test Item Value Reference Range Interpretation Comments PROTIME (BEAKER) (test code = 23.8 seconds 11.7-14.7 H 759) INR (BEAKER) (test code = 370) 2.1 <=5.9 RECOMMENDED COUMADIN/WARFARIN INR THERAPY RANGESSTANDARD DOSE: 2.0 - 3.0 Includes: PROPHYLAXIS forvenous thrombosis, systemic embolization; TREATMENT for venous thrombosis and/or pulmonary embolus.HIGH RISK: Target INR is 2.5-3.5 for patients with mechanical heart valves.While on warfarin.[id number] 04:29:00 Test Item Value Reference Range Interpretation Comments MAGNESIUM (BEAKER) (test code = 2.0 mg/dL 1.6-2.6 627) CBC W/PLT COUNT & AUTO [id number] 04:11:00 Test Item Value Reference Range Interpretation [...] PERCENT (BEAKER) (test code = 2801) POCT-GLUCOSE [id number] 22:19:00 Test Item Value Reference Range Interpretation Comments POC-GLUCOSE METER 266 mg/dL 70-110 H TESTED AT [place] [address] (BEAKER) (test code = [facility] 1538) [address] [id number] 17:54:00 Test Item Value Reference Range Interpretation Comments POTASSIUM (BEAKER) (test code = 4.2 meq/L 3.5-5.1 379) [id number] 17:23:00 Test Item Value Reference Range Interpretation Comments MAGNESIUM (BEAKER) (test code = 1.7 mg/dL 1.6-2.6 627) POCT-GLUCOSE [id number] 12:41:00 Test Item Value Reference Range Interpretation Comments POC-GLUCOSE METER 111 mg/dL 70-110 H TESTED AT [place] [address] ([facility] (test code = [facility] 1538) [address] [id number] 12:40:00 Test Item Value Reference Range Interpretation Comments POTASSIUM (BEAKER) (test code = 3.5 meq/L 3.5-5.1 379) POCT-GLUCOSE [id number] 10:05:00 Test Item Value Reference Range Interpretation Comments POC-GLUCOSE METER 94 mg/dL 70-110 TESTED AT [place] [address] (BEAKER) (test code = [facility] [address] 1538) COMPREHENSIVE METABOLIC [id number] 05:47:00 Test Item Value Reference Range Interpretation [...] S NOT APPLICABLE FOR DIALYSIS PATIEN TS. [id number] 05:44:00 Test Item Value Reference Range Interpretation Comments MAGNESIUM (BEAKER) (test code = 2.0 mg/dL 1.6-2.6 627) PROTHROMBIN TIME/[id number] 05:37:00 Test Item Value Reference Range Interpretation Comments PROTIME (BEAKER) (test code = 24.0 seconds 11.7-14.7 H 759) INR (BEAKER) (test code = 370) 2.2 <=5.9 RECOMMENDED COUMADIN/WARFARIN INR THERAPY RANGESSTANDARD DOSE: 2.0 - 3.0 Includes: PROPHYLAXIS forvenous thrombosis, systemic embolization; TREATMENT for venous thrombosis and/or pulmonary embolus.HIGH RISK: Target INR is 2.5-3.5 for patients with mechanical heart valves.PROTHROMBIN TIME/[id number] 05:36:00 Test Item Value Reference Range Interpretation [...] valves.While on warfarin.CBC W/PLT COUNT & AUTO [id number] 05:35:00 Test Item Value Reference Range Interpretation [...] 417) IMMATURE GRANULOCYTES-RELATIVE 1 % 0-1 PERCENT ([facility]) (test code = 2801) POCT-GLUCOSE [id number] 23:56:00 Test Item Value Reference Range Interpretation Comments POC-GLUCOSE METER 105 mg/dL 70-110 TESTED AT [facility] 6720 ([facility]) (test code = [facility] Mikki [facility] 1538) [address] TROPONIN [id number] 13:02:00 Test Item Value Reference Range Interpretation Comments TROPONIN I ([facility]) (test code = 0.02 ng/mL 0.00-0.03 397) [...] Reference Range Interpretation Comments B-TYPE NATRIURETIC PEPTIDE ([facility]) 975 pg/mL 0-100 H (test code = 700) POCT-GLUCOSE [id number] 12:18:00 Test Item Value Reference Range Interpretation Comments POC-GLUCOSE METER 175 mg/dL 70-110 H TESTED AT [facility] 6720 ([facility]) (test code = [facility] Mikki [facility] 1538) [address] U/S, ABDOMINAL, [id number] 10:23:00Abdomen limited area? Add comment if clarification [...] MDReport Verified Date/Time: 01/14/2018 10:23:02 Reading Location: [address] Consult Reading Room T4, [id number] 08:42:00 Test Item Value Reference Range Interpretation Comments FREE T4 (MATTHEW) (test code = 655) 0.83 ng/dL 0.70-1.48 POCT-GLUCOSE [id number] 08:37:00 Test Item Value Reference Range Interpretation Comments POC-GLUCOSE METER 161 mg/dL 70-110 H TESTED AT [facility] 6720 (MATTHEW) (test code = [place] 1538) [address] TSH/FREE T4 IF [id number] 08:05:00 Test Item Value Reference Range Interpretation Comments THYROID STIMULATING HORMONE 0.02 uIU/mL 0.35-4.94 L [facility] (test code = 772) VITAMIN B12 AND [id number] 07:42:00 Test Item Value Reference Range Interpretation Comments VITAMIN B12 (BEAKER) (test code = 1276 pg/mL 213-816 H 774) FOLATE (BEAKER) (test code = 362) 8.8 ng/mL >=7.0 LIPID [id number] 07:14:00 Test Item Value Reference Range Interpretation [...] Borderline 130-159 High 160-189 Very High >=190TROPONIN [id number] 07:12:00 Test Item Value Reference Range Interpretation [...] acute neurological disease, and persistent tachyarrhythmia.URINALYSIS W/ [id number] 06:35:00 Test Item Value Reference Range Interpretation [...] 517) SOURCE(BEAKER) (test code = Urine, [place] 9919) [id number] 06:07:00 Test Item Value Reference Range Interpretation Comments MAGNESIUM (BEAKER) (test code = 1.8 mg/dL 1.6-2.6 627) [id number] 05:32:00 Test Item Value Reference Range Interpretation Comments MAGNESIUM (BEAKER) (test code = 2.5 mg/dL 1.6-2.6 627) COMPREHENSIVE METABOLIC [id number] 05:32:00 Test Item Value Reference Range Interpretation [...] NOT APPLICABLE FOR DIALYSIS PATIEN TS. PROTHROMBIN TIME/[id number] 05:10:00 Test Item Value Reference Range Interpretation [...] 0-1 PERCENT (BEAKER) (test code = 2801) [id number] 02:52:00 Test Item Value Reference Range Interpretation Comments PROCALCITONIN (BEAKER) (test code 0.41 ng/mL <0.05 H = 3036) SEPSIS RISK (ng/mL)Low: 0.05-0.50Intermediate: 0.51-2.00High: >=2.01LACTIC ACID, VENOUS, WHOLE [id number] 02:06:00 Test Item Value Reference Range Interpretation Comments LACTATE BLOOD VENOUS 1.3 mmol/L 0.5-2.2 Specime n slightly (2) (BEAKER) (test hemolyzed code = 2872) Effective 01/07/2016: Units/Reference Range ChangeNew: 0.5-2.2 mmol/L Previous: 5-20 mg/dLCOMPREHENSIVE METABOLIC [id number] 02:06:00 Test Item Value Reference Range Interpretation [...] S NOT APPLICABLE FOR DIALYSIS PATIEN TS. [id number] 02:04:00 Test Item Value Reference Range Interpretation Comments LIPASE (BEAKER) (test code = 749) 730 U/L 8-78 H [id number] 02:04:00 Test Item Value Reference Range Interpretation Comments AMYLASE (BEAKER) (test code = 349) 226 U/L 25-125 H PROTHROMBIN [id number] 01:45:00 Test Item Value Reference Range Interpretation Comments PROTIME (BEAKER) (test code = 23.9 seconds 11.7-14.7 H 759) INR (BEAKER) (test code = 370) 2.1 <=5.9 RECOMMENDED COUMADIN/WARFARIN INR THERAPY RANGESSTANDARD DOSE: 2.0 - 3.0 Includes: PROPHYLAXIS forvenous thrombosis, systemic embolization; TREATMENT for venous thrombosis and/or pulmonary embolus.HIGH RISK: Target INR is 2.5-3.5 for patients with mechanical heart valves.[id number] 01:45:00 Test Item Value Reference Range Interpretation Comments PARTIAL THROMBOPLASTIN TIME 32.4 seconds 22.5-36.0 (BEAKER) (test code = 760) CBC W/PLT COUNT & AUTO [id number] 01:38:00 Test Item Value Reference Range Interpretation [...] % 0-1 PERCENT (BEAKER) (test code = 2802)
--- NOTE | 2021-09-10 11:47 | RAD REPORT ---
EXAM DESCRIPTION: Brandon Single View09/10/2021 11:34 am CLINICAL HISTORY: Chest pain COMPARISON: August 2021 FINDINGS: The lungs appear clear of acute infiltrate. The heart is normal size IMPRESSION: No acute abnormalities displayed
--- NOTE | 2021-09-10 11:50 | RAD REPORT ---
EXAM DESCRIPTION: RAD - Knee Left 3 View - 09/10/2021 11:36 am CLINICAL HISTORY: Left knee pain status post injury FINDINGS: No fracture or dislocation is seen. Osteoporosis Chondrocalcinosis. Osteoarthritis medial compartment
--- NOTE | 2021-09-10 12:08 | RAD REPORT ---
EXAM DESCRIPTION: CTSpine Lumbar Wo Con09/10/2021 11:52 am CLINICAL HISTORY: Back injury with back pain status post fall COMPARISON: December 2020 and 2018 TECHNIQUE: Computed axial tomography lumbar spine was obtained with coronal and sagittal reconstruct ion. All CT scans are performed using dose optimization technique as appropriate and may include automated exposure control or mA/KV adjustment according to patient size. FINDINGS: No acute fracture seen. Cement has been placed into old compression fractures L3 and L4 vertebral body. Small amount of cemen t extends into the spinal canal at the L4 level. Spondylosis L3-4 results in moderate central spinal stenosis. Spondylosis L4-5 results in marked central spinal stenosis. Bilateral foraminal stenosis also present Mild chronic posterior subluxation L1 on L2. Mild chronic anterior subluxation L3 on L4 and L4 on L5 Small left posterolateral disc herniation L5-S1 Well-circumscribed lucency within the right iliac bone unchanged from 2018 IMPRESSION: Negative for an acute lumbar fracture. Marked central spinal stenosis L4-5
--- NOTE | 2021-09-10 12:21 | RAD REPORT ---
EXAM DESCRIPTION: RAD - Wrist Left 3 View - 09/10/2021 11:35 am CLINICAL HISTORY: Left wrist pain status post injury FINDINGS: Bones are osteoporotic. Marked osteoarthritis involves the first carpometacarpal joint. There is a questionable subluxation o r dislocation. I suspect this is chronic but should be correlated clinically. If the patient has clinical symptoms to suggest an occult fracture or acute first metatarsal subluxat ion/dislocation then a CT scan would be recommended.
--- NOTE | 2021-09-10 12:21 | RAD REPORT ---
EXAM DESCRIPTION: RAD - Pelvis - 09/10/2021 11:35 am CLINICAL HISTORY: Pelvic pain status post injury FINDINGS: Examination is suboptimal secondary to technical factors. Bones are osteoporotic. No gross fracture or dislocation seen. If patient continues to have symptoms to suggest an occult fracture CT would be recommended
--- NOTE | 2021-09-10 13:04 | ER ---
Nurse's Notes [facility] Name: Emelia Payan Age: 81 yrs Sex: Female : 1940 Arrival Date: 09/10/2021 Time: 09:35 Bed 12 Private MD: Diagnosis: Contusion of lower back and pelvis Presentation: 09/10 09:38 Chief complaint: EMS states: Walking towards vehicle with the assistance of walker and vg1 tripped and fell onto walker; c/o Left wrist pain and lower back pain. Denies hitting head, no LOC; pt take 'blood thinner'. Pt appears to have a skin tear to Left Knee. 09:38 Method Of Arrival: EMS: [facility] vg1 10:57 Coronavirus screen: Vaccine status: Patient reports receiving the 2nd dose of the covid vg1 vaccine. Client denies travel out of the [place] in the last 14 days. Ebola Screen: Patient negative for fever greater than or equal to 101.5 degrees Fahrenheit, and additional compatible Ebola Virus Disease symptoms. Initial Sepsis Screen: Does the patient meet any 2 criteria? No. Patient's initial sepsis screen is negative. Does the patient have a suspected source of infection? No. Patient's initial sepsis screen is negative. Risk Assessment: Do you want to hurt yourself or someone else? Patient reports no desire to harm self or others. Onset of symptoms was September 10, 2021. 10:57 Acuity: EDIS 3 vg1 Triage Assessment: 11:00 General: Appears in no apparent distress. comfortable, Behavior is calm, cooperative. vg1 Pain: Complains of pain in Left wrist and back Pain currently is 8 out of 10 on a pain scale. Pain began 2 hours ago. Musculoskeletal: Circulation, motion, and sensation intact. Historical: - Allergies: 11:00 Bactrim; vg1 11:00 Cipro; vg1 11:00 Xarelto; vg1 11:00 Zosyn; vg1 - PMHx: 11:00 adrenal insuficiency; Anxiety; Atrial Fib; CHF; CVA; Pancreatitis; lymphedema; L groin vg1 blood clot; Hypothyroidism; Hypertension; Hyperlipidemia; DVT; Diabetes - IDDM; - Immunization history:: Client reports receiving the 2nd dose of the Covid vaccine. - Social history:: Smoking status: Patient denies any tobacco usage or history of. - Family history:: not pertinent. Screenin:20 Abuse screen: Denies threats or abuse. Denies injuries from another. Nutritional iw screening: No deficits noted. Tuberculosis screening: No symptoms or risk factors identified. Fall Risk None identified. Assessment: 12:00 General: Appears in no apparent distress. iw 12:30 Pain: Complains of pain in back. Neuro: Level of Consciousness is awake, alert, obeys iw commands, Oriented to person, place, time, situation, Moves all extremities. Full function. Respiratory: Respiratory effort is even, unlabored, Respiratory pattern is regular. Derm: Skin is normal. Vital Signs: 10:57 BP 176 / 73; Pulse 63; Resp 16; Temp 97.3; Pulse Ox 100% ; Weight 71.67 kg; Height 5 vg1 ft. 4 in. (162.56 cm); Pain 8/10; 10:57 Body Mass Index 27.12 (71.67 kg, 162.56 cm) vg1 ED Course: 09:35 Patient arrived in ED. mr 11:00 Triage completed. vg1 11:00 Arm band placed on. vg1 11:10 Jere Crobett MD is Attending Physician. ma2 11:34 Chest Single View XRAY In Process Unspecified. EDMS 11:34 Pelvis XRAY In Process Unspecified. EDMS 11:34 Wrist Left (3 View) XRAY In Process Unspecified. EDMS 11:34 Knee Left 3 View XRAY In Process Unspecified. EDMS 11:52 CT Lumbar Spine Wo Con In Process Unspecified. EDMS 12:43 Guerita Ray, RN is Primary Nurse. iw 13:00 Patient has correct armband on for positive identification. iw 13:20 No provider procedures requiring assistance completed. Patient did not have IV access iw during this emergency room visit. Administered Medications: 13:14 Drug: Ketorolac 60 mg Route: IM; Site: right deltoid; iw 13:30 Follow up: Response: No adverse reaction iw Outcome: 13:03 Discharge ordered by . ma2 13:20 Discharged to home via wheelchair, with family. iw 13:20 Condition: good 13:20 Discharge instructions given to patient, family, Instructed on discharge instructions, follow up and referral plans. medication usage, Demonstrated understanding of instructions, follow-up care, medications, Prescriptions given X 2. 13:21 Patient left the ED. iw Signatures: Dispatcher [employer] WIL Polly Frost Guerita Ray RN RN iw Jere Corbett MD MD ma2 Mayi Mercado RN RN vg1 Corrections: (The following items were deleted from the chart) 11:00 09:38 Chief complaint: EMS states: Walking towards vehicle with the assistance of vg1 walker and tripped and fell onto walker; c/o Left wrist pain and lower back pain. Denies hitting head, no LOC; pt take 'blood thinner'. vg1 18:59 12:00 General: Appears in no apparent distress. iw iw
--- NOTE | 2021-09-10 13:04 | EDPHYS ---
Physician Documentation [facility] Name: Emelia Payan Age: 81 yrs Sex: Female : 1940 Arrival Date: 09/10/2021 Time: 09:35 Bed 12 Private MD: ED Physician Jere Corbett HPI: 09/10 11:12 This 81 yrs old Female presents to ER via EMS with complaints of Fall Injury. ma2 11:12 Patient tripped while walking, fell sitting on her chest, here with lower back pain, ma2 also hurt her left wrist, and left knee, has abrasion to left knee. Pain has improved.. Historical: - Allergies: 11:00 Bactrim; vg1 11:00 Cipro; vg1 11:00 Xarelto; vg1 11:00 Zosyn; vg1 - PMHx: 11:00 adrenal insuficiency; Anxiety; Atrial Fib; CHF; CVA; Pancreatitis; lymphedema; L groin vg1 blood clot; Hypothyroidism; Hypertension; Hyperlipidemia; DVT; Diabetes - IDDM; - Immunization history:: Client reports receiving the 2nd dose of the Covid vaccine. - Social history:: Smoking status: Patient denies any tobacco usage or history of. - Family history:: not pertinent. ROS: 11:12 Constitutional: Negative for fever, chills, and weight loss. ma2 11:12 All other systems are negative. Exam: 11:12 Constitutional: This is a well developed, well nourished patient who is awake, alert, ma2 and in no acute distress. Head/Face: Normocephalic, atraumatic. Eyes: Pupils equal round and reactive to light, extra-ocular motions intact. Lids and lashes normal. Conjunctiva and sclera are non-icteric and not injected. Cornea within normal limits. Periorbital areas with no swelling, redness, or edema. ENT: Nares patent. No nasal discharge, no septal abnormalities noted. Tympanic membranes are normal and external auditory canals are clear. Oropharynx with no redness, swelling, or masses, exudates, or evidence of obstruction, uvula midline. Mucous membranes moist. Neck: Trachea midline, no thyromegaly or masses palpated, and no cervical lymphadenopathy. Supple, full range of motion without nuchal rigidity, or vertebral point tenderness. No Meningismus. Chest/axilla: Normal chest wall appearance and motion. Nontender with no deformity. No lesions are appreciated. Cardiovascular: Regular rate and rhythm with a normal S1 and S2. No gallops, murmurs, or rubs. Normal PMI, no JVD. No pulse deficits. Respiratory: Lungs have equal breath sounds bilaterally, clear to auscultation and percussion. No rales, rhonchi or wheezes noted. No increased work of breathing, no retractions or nasal flaring. Abdomen/GI: Soft, non-tender, with normal bowel sounds. No distension or tympany. No guarding or rebound. No evidence of tenderness throughout. Back: No spinal tenderness. No costovertebral tenderness. Full range of motion. Skin: Warm, dry with normal turgor. Normal color with no rashes, no lesions, and no evidence of cellulitis. MS/ Extremity: Left wrist pain, however full range of motion at left wrist, hand with no abnormality on exam or tenderness. Full range of motion at all fingers. Left knee with full range of motion, has abrasion above left knee. Otherwise pulses equal, no cyanosis. Neurovascular intact. Full, normal range of motion. Neuro: Awake and alert, GCS 15, oriented to person, place, time, and situation. Cranial nerves II-XII grossly intact. Motor strength 5/5 in all extremities. Sensory grossly intact. Cerebellar exam normal. Normal gait. Vital Signs: 10:57 BP 176 / 73; Pulse 63; Resp 16; Temp 97.3; Pulse Ox 100% ; Weight 71.67 kg; Height 5 vg1 ft. 4 in. (162.56 cm); Pain 8/10; 10:57 Body Mass Index 27.12 (71.67 kg, 162.56 cm) vg1 MDM: 12:43 Patient medically screened. ma2 12:44 ED course: X-ray wrist is questionable for first metacarpal dislocation subluxation , ma2 however patient is nontender at that site.. 13:03 Differential diagnosis: contusion, sprain, strain. Data reviewed: vital signs, nurses ma2 notes. Counseling: I had a detailed discussion with the patient and/or guardian regarding: the historical points, exam findings, and any diagnostic results supporting the discharge/admit diagnosis, the presence of at least one elevated blood pressure reading (>120/80) during this emergency department visit, the need for further work-up and treatment in the hospital. Response to treatment: the patient's symptoms have markedly improved after treatment. 09/10 11:10 Order name: CT Lumbar Spine Wo Con; Complete Time: 12:43 ma2 09/10 11:10 Order name: Chest Single View XRAY; Complete Time: 12:43 ma2 09/10 11:10 Order name: Pelvis XRAY; Complete Time: 12:43 ma2 09/10 11:10 Order name: Wrist Left (3 View) XRAY; Complete Time: 12:43 ma2 09/10 11:10 Order name: Knee Left 3 View XRAY; Complete Time: 12:43 ma2 Administered Medications: 13:14 Drug: Ketorolac 60 mg Route: IM; Site: right deltoid; iw 13:30 Follow up: Response: No adverse reaction iw Disposition Summary: 09/10/21 13:03 Discharge Ordered Location: Home ma2 Condition: Stable ma2 Diagnosis - Contusion of lower back and pelvis ma2 Followup: ma2 - With: Private Physician - When: Tomorrow - Reason: If symptoms return Discharge Instructions: - Discharge Summary Sheet ma2 - Low Back Sprain or Strain Rehab-[facility] ma2 Forms: - Medication Reconciliation Form ma2 - Thank You Letter ma2 - Antibiotic Education ma2 - Prescription Opioid Use ma2 Prescriptions: - Cyclobenzaprine 10 mg Oral Tablet - take 1 tablet by ORAL route every 8 hours As needed; 30 tablet; Refills: 0, ma2 Product Selection Permitted - Diclofenac Sodium 75 mg Oral Tablet Sustained Release - take 1 tablet by ORAL route 2 times per day; 30 tablet; Refills: 0, Product ma2 Selection Permitted Signatures: Dispatcher [employer] Guerita Cramer, ODILON DONALD iw Jere Corbett MD MD ma2 Mayi Mercado RN RN vg1
[2021-09-10] MEDS ORDERED: KETOROLAC 30 MG/ML INJ ONE (13:12)
[2021-09-10 13:25] VITALS: BP 176/73; TEMP 97.3; O2SAT 100
== END 2021-09-10 13:21 | disposition home or self-care (01) ==
LOC: ER 09:30
DX: S30.0XXA Contusion of lower back and pelvis, initial encounter (principal); W01.0XXA Fall on same level from slipping, tripping and stumbling without subsequent striking against object, initial encounter; Y93.01 Activity, walking, marching and hiking; I10 Essential (primary) hypertension; Z88.1 Allergy status to other antibiotic agents; Z88.8 Allergy status to other drugs, medicaments and biological substances
CPT/HCPCS: 71045; 72131; 72170; 96372; 99284

== ENCOUNTER 2021-12-16 06:36 | Day surgery (SDC) | payer OTHER ==
[2021-12-16] MEDS ORDERED: Ringers Lactate 1,000 ML IV ONE (06:53)
[2021-12-16] MEDS ORDERED: NA CHLORIDE 0.9% 1,000 ML ONE (07:04)
[2021-12-16] MEDS ORDERED: propofoL 200 MG/20 ML VIAL IV ONE (08:12)
[2021-12-16 09:33] VITALS: TEMP 97.4
--- NOTE | 2021-12-16 09:33 | ENDO RPT ---
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 TOPICAL ANESTHETIC: none CONSENT: The patient understands the risks and benefits of the procedure and understands that these risks include, but are not limited to: sedation, allergic reaction, infection, perforation and/or bleeding. Alternative means of evaluation and treatment include, among others: physical exam, x-rays, and/or surgical intervention. The patient elects to proceed with this endoscopic procedure. DESCRIPTION OF PROCEDURE: During intra-op preparation period all mechanical medical equipment was checked for proper function. Hand hygiene and appropriate measures for infection prevention was taken. Procedure, possible complications, and alternatives including but not limited to the possibility of bleeding, perforation, tear, infection, sepsis, need for surgery, need for blood transfusion, and anesthesia related complications were explained to the patient. After the risks, benefits and alternatives of the procedure were thoroughly explained, Informed consent was verified, confirmed and timeout was successfully executed by the treatment team. The patient was placed in the left lateral position. The patient was anesthetized with topical anesthesia. Through the anesthetized oropharyngeal area, the scope was passed without any difficulty. The EG-[id number] ([id number]) endoscope was introduced through the mouth and advanced to the second portion of the duodenum. Retroflexed views revealed a small hiatal hernia. The gastroscope was then slowly withdrawn and removed. A small slliding hiatal hernia was found. Moderate atrophic gastritis was found in the antrum, s/p biopsies. A large healed ulcer was noted in the antrum with surrounding edema / erythema / inflammation. Multiple biopsies were obtained and sent to pathology. A 2 mm clean-based ulcer was found in the antrum. ADVERSE EVENTS: There were no complications. IMPRESSIONS: 1. Small sliding hiatal hernia 2. Moderate atrophic gastritis in the antrum, s/p biopsies 3. Healed large ulcer in the antrum with surrounding edema / erythema / inflammation, s/p biopsies 4. 2 mm clean-based ulcer in the antrum RECOMMENDATIONS: 1. await biopsy results 2. acid suppression therapy REPEAT EXAM: Vinnie Garcia Dr eSigned: Vinnie Garcia Dr 12/16/2021 9:32 AM cc: Dany Iraheta CPT CODES: ICD9 CODES: PATIENT NAME: Emelia Payan MR#: [id number]
[2021-12-16 09:34] VITALS: O2SAT 100
[2021-12-16 10:05] VITALS: BP 157/68
== END 2021-12-16 10:00 | disposition home or self-care (01) ==
LOC: OR 06:36
PROVIDERS: ATTEND Internal Medicine Gastroenterology
PROC: 0DB68ZX Excision of Stomach, Via Natural or Artificial Opening Endoscopic, Diagnostic (ICD-10-PCS; principal; 2021-12-16 08:00)
DX: R10.13 Epigastric pain (principal); R13.10 Dysphagia, unspecified; K21.9 Gastro-esophageal reflux disease without esophagitis; F41.9 Anxiety disorder, unspecified; I48.91 Unspecified atrial fibrillation; E11.9 Type 2 diabetes mellitus without complications; K57.30 Diverticulosis of large intestine without perforation or abscess without bleeding; I10 Essential (primary) hypertension; Z20.822 Contact with and (suspected) exposure to COVID-19; K44.9 Diaphragmatic hernia without obstruction or gangrene; K29.50 Unspecified chronic gastritis without bleeding
CPT/HCPCS: 43239; 88312; 82947; 88305; U0002; J2704; J7120; J7030

== ENCOUNTER 2022-05-18 09:04 | Inpatient (IN) | payer OTHER ==
--- OUTSIDE RECORDS SUMMARY | 2022-05-18 09:12 | XMS REPORT | Continuity of Care Document ---
:1940 Author Organization [facility] t Address [address] [place] [address] Care Team Providers Name Role Phone Dany Iraheta Primary Care Physician Kemar Hall Attending Clinician Unavailable Chel Valdez Attending Clinician Unavailable Dany Iraheta Attending Clinician Unavailable JOSY EDGE Attending Clinician Unavailable AARON VENEGAS JR Attending Clinician Unavailable MARYSOL NGUYEN Attending Clinician Unavailable AJSON Attending Clinician Unavailable Doctor Unassigned, [place] Attending Clinician Unavailable Lynne Foster Attending Clinician Bonifacio STRATTON, Jose Eduardo Attending Clinician [phone] [facility] Attending Clinician Unavailable Pamela Terry DO Attending Clinician Chelsey Barker RN Attending Clinician Unavailable Kely STRATTON, Josy Attending Clinician Zach FAROOQ, Avtar Attending Clinician Kadeem DONALD, Todd Bates Attending Clinician Unavailable Tony STRATTON, Latoya Duff Attending Clinician Abril STRATTON, Fabrizio Ortiz Attending Clinician Omar Bailon MD, Victor J Attending Clinician [phone] Tiesha Palomino MD Attending Clinician YOAV DEL ROSARIO Attending Clinician Unavailable LUIZ HAYES Attending Clinician Unavailable RANCHO SANDOVAL Attending Clinician Unavailable JOSY EDGE Admitting Clinician Unavailable TONYLATOYA Admitting Clinician Unavailable ERICKSON_R Admitting Clinician Unavailable Josy Edge MD Admitting Clinician Tiesha Palomino MD Admitting Clinician LUIZ HAYES Admitting Clinician Unavailable RANCHO SANDOVAL Admitting Clinician Unavailable Payers Payer Name Policy Type Policy Number Effective Date Expiration Source Date MEDICARE PART A \\T\\ B [id number] 2003 00:00:00 [place] [id number] 2003 [place]:00 AETNA [id number] 2000 00:00:00 MEDICAREMEDICARE A [id number] [facility] [id number] 2003 00:00:00 [facility] es -PresentMedicare Medical Center AETNA - MGD CAREAETNA [id number] [facility] INDEMNITY NON 00:00:00 [place] [id number] [facility] Problems Condition Condition Condition Status Onset Resolution Last Treating Co mments Source Name Details Category Date Date Treatment Clinician Date Recurrent Recurrent Disease Active Uni vers acute deep acute deep 03-11 it y of vein vein 00:00: [place] thrombosis thrombosis 00 Me dical (DVT) of (DVT) of Branch left lower left lower extremity extremity DVT, lower DVT, lower Disease Active U natalie extremity, extremity, 03-11 it [place] of proximal[place] acute[place] acute[place] 00 Medical left left Branch Melena Melena Disease Active Univers 4-18 ity of 00:00: [place] [address] Medical Branch Osteoporos Osteoporos Disease Active U judeers is is 3-05 ity of 00:00: [place] 00 Medical Branch Degenerati Degenerati Disease Active 2020-0 U nivers on of on of 3-05 ity of lumbar lumbar 00:00: [place] interverte interverte 00 Me dical bral disc bral disc Bran ch Compressio Compressio Disease Active 2020-0 U nivers n fracture n fracture 3-05 it y of of lumbar of lumbar 00:[place] vertebra vertebra 00 Medica l Branch Scoliosis Scoliosis Disease Active Uni vers of lumbar of lumbar 2-12 ity of spine spine 00:00: [place] 00 Medical Branch Neuropathy Neuropathy Disease Active 2020-0 U nivers 1-07 ity of 00:00: [place] 00 Medical Branch 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 hyperchole 1-07 it y of sterolemia sterolemia [place] [facility] hypertrigl hypertrigl Br anch yceridemia yceridemia Malignant Malignant Disease Active 2020-0 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 00:[place] gland gland 00 [place] Lymphedema Lymphedema Disease Active 2020-0 U nivers 1-07 ity of 00:00: [place] 00 Medical Branch Hypothyroi Hypothyroi Disease Active 2020-0 U nivers dism dism 1-07 ity of 00:00: [place] 00 Medical Branch History of History of Disease Active 2020-0 U nivers 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 00:00: [place] of breast of breast 00 [facility] Branch Gastroesop Gastroesop Disease Active 2020-0 U nivers hageal hageal 1-07 ity of reflux reflux 00:00: [place] disease disease 00 Medical Branch Anxiety Anxiety Disease Active 2020-0 Univers 1-07 ity of 00:00: [place] 00 Medical Branch Hypertensi Hypertensi Disease Active 2020-0 U nivers ve ve 1-07 ity of disorder disorder 00:00: [place] 00 Medical Branch Type 2 Type 2 Disease Active 2020-0 Univers diabetes diabetes 1-07 ity of mellitus mellitus 00:00: [place] Medical Branch Chronic Chronic Disease Active 2020-0 Univers atrial atrial 1-07 ity of fibrillati fibrillati [place] Pancreatit Pancreatit Disease Active [facility]12 [facility] 00:00: [facility] 00 Center Sepsis Sepsis Disease Active [address] [facility] 5-12 [facility] 00:00: Medical 00 [place] Paroxysmal Paroxysmal Disease Active [facility] A-fib A-fib 01-14 [facility] 00:[facility]: Medical 00 [place] Chest pain Chest pain Disease Active U nivers 6-15 ity of 00:00: [place] 00 Medical Branch Allergies, Adverse Reactions, Alerts Allergy Allergy Status Severity Reaction(s) Onset Inactive Treating Comm ents Source Name Type Date Date Clinician Penicill Propensi Active Hives Method i ins ty to 05-17 st adverse 00:00: Hospita reaction 00 l s to drug CIPROFLO DRUG Active Unknown-Cmnt Un ezekiel XACIN INGREDI 4-18 ity of 00:00: Medical Branch PIPERACI DRUG Active Unknown-Cmnt Un ezekiel LLIN-MICHAEL 4-18 ity of OBACTAM 00:00: 00 Medical Branch Ciproflo Propensi Active Unknown - itch Uni vers xacin ty to See comments 4-18 ity of adverse 00:00: [place] reaction 00 Medical s Branch Piperaci Propensi Active Unknown - bleeding U nivers llin-Michael ty to See comments -18 it y of obactam adverse 00:00: [place] reaction 00 Medical s Branch Piperaci Propensi Active Other (See bleeding Methodi llin-Michael ty to Comments) 18 st obactam adverse 00:00: Hospita reaction 00 l s to drug Ciproflo Propensi Active Itching [facility] xacin [facility] 01-14 [facility] adverse 00:00: Medical reaction 00 Center s Rivaroxa Drug Active Other (See Internal [facility] ban Intolera Comments) 01-14 bleeding Mindy es nce 00:00: Medical 00 Center Ciproflo Propensi Active Other (See itch Me thodi xacin ty to Comments) 01-14 st adverse 00:00: Hospita reaction 00 l s to drug Rivaroxa Propensi Active Other (See Internal Methodi ban ty to Comments) 01-[address] adverse 00:00: Hospita reaction 00 l s to drug Family History Family Member Diagnosis Comments Start Date Stop Date Source Natural father Coronary Heart Un[facility]ity of [place] Disease Medical Branch Natural father Heart disease [facility] Natural mother Coronary Heart [facility] sit [facility] [place] Disease Medical Branch Natural mother Heart disease [facility] Natural sister Heart [facility] Social History Social Habit Start Date Stop Date Quantity Comments Source Alcohol intake 2018-11-09 2018-11-09 Current CEDRIC [place] es 00:00:00 00:00:00 non-drinker of Medical Ce nter alcohol (finding) Tobacco use and 2018-03-13 2018-03-13 Never used CEDRIC Hoang exposure 00:00:00 00:00:00 [facility] Center Sex Ass[birth year] At [birth year] [facility] 00:00:00 00:00:00 Hospital Smoking Status Start Date Stop Date Source Tobacco smoking consumption [facility] unknown Never smoker [facility] Medications Ordered Filled Start Stop Current Ordering Indication Dosage Frequency Signature Comments Components Source Medication Medication Date Date Medication? Clinician (SIG) Name Name isosorbide Yes [id number] 30mg Take 1 U nivers mononitrate 7-10 tablet by ity of 30 mg 24 hr 00:00: mouth [place] tablet 00 daily. Medical Branch levothyroxi Yes [id number] 112ug Take 1 Univers ne 112 mcg 7-10 tablet by ity of tablet 00:00: mouth [place] 00 every Medical morning. Branch hydrocortis Yes [id number] 40mg Take 2 Univers one 20 mg 7-10 tablets by ity of tablet 00:00: mouth [place] 00 every Medical morning. Branch isosorbide Yes [id number] 30mg Take 1 U nivers mononitrate 7-10 tablet by ity of 30 mg 24 hr 00:00: mouth [place] tablet 00 daily. Medical Branch levothyroxi Yes [id number] 112ug Take 1 Univers ne 112 mcg 7-10 tablet by ity of tablet 00:00: mouth [place] 00 every Medical morning. Branch hydrocortis Yes [id number] 40mg Take 2 Univers one 20 mg 7-10 tablets by ity of tablet 00:00: mouth [place] 00 every Medical morning. Branch losartan Yes 100mg Take 100 Univ ers (COZAAR) 7-09 mg by ity of 100 mg 18:04: mouth [place] tablet 43 daily. Medical Branch amLODIPine 2021-0 Yes 5mg Take 5 mg Un ezekiel (NORVASC) 5 7-09 by mouth ity of mg tablet 18:04: daily. [place] 43 Medical Branch CALCIUM Yes 1{tbl} Take [...] exas tablet 43 as needed. Medical Branch losartan Yes 100mg Take 100 Univ ers (COZAAR) 7-09 mg by ity of 100 mg 18:04: mouth [place] tablet 43 daily. Medical Branch amLODIPine Yes 5mg Take 5 mg Un ezekiel (NORVASC) 5 7-09 by mouth ity of mg tablet 18:04: daily. [place] 43 Medical Branch CALCIUM Yes 1{tbl} Take [...] 43 as needed. Medical Branch lipase-prot Yes [id number] 1{capsu Take 1 Univers ease-amylas 7- 107 le} capsule by it y of e 00:00: mouth 3 [place] 10,500-35,5 00 (three) Medic al 00- 61,500 times Branch unit daily with meals. polyethylen Yes [id number] 17g Take 1 Univers e glycol 7-09 Packet by ity of 3350 17 00:00: mouth 2 [place] gram powder 00 (two) Medical times Branch daily as needed for Constipati on. simethicone Yes [id number] 80mg Take 1 Univers 80 mg 7-09 tablet by ity of chewable 00:00: mouth 2 [place] tablet 00 (two) Medical times Branch daily as needed for Gas. somatropin Yes [id number] .2mg inject U nivers 0.2 mg/0.25 7-09 0.25 mL ity o f mL 00:00: under the [place] 00 skin Medical daily. Branch apixaban 5 Yes [id number] 5mg Take 1 Unive rs mg tablet 7-09 tablet by ity o f 00:00: mouth 2 [place] 00 (two) Medical times Branch daily. Indication s: atrial fibrillati on hydrocortis Yes [id number] 20mg Take 1 Univers one 20 mg 7- tablet by ity o f tablet 00:00: mouth [place] 00 every Medical evening. Branch mirtazapine Yes [id number] 15mg Take 1 Univers 15 mg 7- tablet by ity of tablet 00:00: mouth at [place] 00 bedtime. Medical Branch hydrocortis Yes [id number] 100mg 2 mL by Univers one sod 03-13 Intramuscu ity of succ 100 00:00: lar route [place] mg/2 mL 00 as needed Medical injection (As rescue Bran ch for low cortisol if there is low BP, N/V.). lipase-prot Yes [id number] 1{capsu Take 1 Univers ease-amylas 03-13 107 le} capsule by it y of e 00:00: mouth 3 [place] 10,500-35,5 00 (three) Medic al 00- 61,500 times Branch unit daily with meals. polyethylen Yes [id number] 17g Take 1 Univers e glycol 7-09 Packet by ity of 3350 17 00:00: mouth 2 [place] gram powder 00 (two) Medical times Branch daily as needed for Constipati on. simethicone Yes [id number] 80mg Take 1 Univers 80 mg 7-09 tablet by ity of chewable 00:00: mouth 2 [place] tablet 00 (two) Medical times Branch daily as needed for Gas. somatropin Yes [id number] .2mg inject U nivers 0.2 mg/0.25 7- 0.25 mL ity o f mL 00:00: under the [place] 00 skin Medical daily. Branch apixaban 5 Yes [id number] 5mg Take 1 Unive rs mg tablet - tablet by ity o f 00:00: mouth 2 [place] 00 (two) Medical times Branch daily. Indication s: atrial fibrillati on hydrocortis Yes [id number] 20mg Take 1 Univers one 20 mg - tablet by ity o f tablet 00:00: mouth [place] 00 every Medical evening. Branch mirtazapine Yes [id number] 15mg Take 1 Univers 15 mg - tablet by ity of tablet 00:00: mouth at [place] 00 bedtime. Medical Branch hydrocortis Yes [id number] 100mg 2 mL by Univers one sod 03-13 Intramuscu ity of succ 100 00:00: lar route [place] mg/2 mL 00 as needed Medical injection (As rescue Bran ch for low cortisol if there is low BP, N/V.). acetaminoph 2021- No [id number] 650mg Take 2 Univers en 325 mg 03-13- 8 tablets by ity of tablet 00:00: 04:59 mouth [place] 00 :00 every 6 Medical (six) Branch hours as needed for Pain (scale 1-3). acetaminoph 2021- No [id number] 650mg Take 2 Univers en 325 mg 03-13-10 8 tablets by ity of tablet 00:00: 04:59 mouth [place] 00 :00 every 6 Medical (six) Branch hours as needed for Pain (scale 1-3). hydrocortis Yes 20mg Take 1 Univ ers one 20 mg 4-30 tablet by ity o f tablet 00:00: mouth [place] 00 every Medical morning. Branch hydrocortis Yes 20mg Take 1 Univ ers [...] mouth [place] 00 every Medical evening. Branch lidocaine 5 Yes 1{patch Apply 1 [...] [place] 00 every Medical evening. Branch cholecalcif Yes [id number] Take [facility] ghada, 3-07 50,000 [facility] vitamin D3, 12:12: Units by Nh dical 50,000 unit 28 mouth once Ce nter Tab every 2 weeks. hydrocortis Yes 10mg Q.5D Take [address] [facility] one 3-07 by mouth 2 [facility] (CORTEF) 20 12:12: (two) Medic al MG tablet 28 times Center daily . fenofibrate Yes 48mg QD Take [address] (TRICOR) 48 3-07 by mouth Luke s MG tablet 12:12: daily. Medica l 28 Center omeprazole Yes 40mg QD Take [address] (PRILOSEC) 3-07 by mouth [facility] 40 MG 12:12: daily. Medical capsule 28 Center potassium Yes 10meq QD Take [address] chloride 3-07 mEq by [facility]ukes (KLOR-CON) 12:12: mouth Medica l 10 MEQ CR 28 daily. Center tablet LORazepam 2019-0 Yes .5mg Take 0.[address] (ATIVAN) 3-07 mg by [facility] 0.5 MG 12:12: mouth as Medical tablet 28 needed for Center Anxiety. somatropin 2019-0 Yes Inject [facility] 5 mg/1.5 mL 3-07 subcutaneo Domitila kes (3.3 mg/mL) 12:12: usly. Medic al PnIj 28 Center cholecalcif 2019-0 Yes [id number] Take [facility] gh[facility], 3-07 50,000 [facility] vitamin D3, 12:12: Units by Me dical 50,000 unit 28 mouth once Ce nter Tab every 2 weeks. hydrocortis 2019-0 Yes 10mg Q.5D Take [address] [facility] one 3-07 by mouth 2 [facility] (CORTEF) 20 12:12: (two) Medic al MG tablet 28 times Center daily . fenofibrate 0 Yes 48mg QD Take [address] (TRICOR) 48 3-07 by mouth Luke s MG tablet 12:12: daily. Medica l 28 Center omeprazole 2018-0 Yes 40mg QD Take [address] (PRILOSEC) 3-07 by mouth [facility] 40 MG 12:12: daily. Medical capsule 28 Center potassium 2018-0 Yes 10meq QD Take [address] chloride 3-07 mEq by Lukes (KLOR-CON) 12:12: mouth Medica l 10 MEQ CR 28 daily. Center tablet LORazepam Yes .5mg Take 0.[address] (ATIVAN) 3-07 mg by [facility] 0.5 MG 12:12: mouth as Medical tablet 28 needed for Center Anxiety. somatropin 2019-0 Yes Inject [facility] 5 mg/1.5 mL 3-07 subcutaneo Domitila kes (3.3 mg/mL) 12:12: usly. Medic al PnIj 28 Center cholecalcif 2019-0 Yes [id number] Take [facility] ghada, 3-07 50,000 [facility] vitamin D3, 12:12: Units by Me dical 50,000 unit 28 mouth once Ce nter Tab every 2 weeks. hydrocortis 2019-0 Yes 10mg Q.5D Take [address] [facility] one 3-07 by mouth 2 [facility] (CORTEF) 20 12:12: (two) Medic al MG tablet 28 times Center daily . fenofibrate 2019-0 Yes 48mg QD Take [address] (TRICOR) 48 3-07 by mouth Luke s MG tablet 12:12: daily. Medica l 28 Center omeprazole Yes 40mg QD Take [address] (PRILOSEC) 3-07 by mouth [facility] 40 MG 12:12: daily. Medical capsule 28 Center potassium Yes 10meq QD Take [address] chloride 3-07 mEq by [facility]ukes (KLOR-CON) 12:12: mouth Medica l 10 MEQ CR 28 daily. Center tablet LORazepam Yes .5mg Take 0.[address] (ATIVAN) 3-07 mg by [facility] 0.5 MG 12:12: mouth as Medical tablet 28 needed for Center Anxiety. somatropin Yes Inject [facility] 5 mg/1.5 mL 3-07 subcutaneo Domitila kes (3.3 mg/mL) 12:12: usly. Medic al PnIj 28 Center levothyroxi Yes hypothyroid 125ug Take [address] ne 3-07 ism mcg by [facility]ukes (SYNTHROID, 12:12: mouth Medic al LEVOTHROID) 27 Every Center 125 MCG morning on tablet an empty stomach. amLODIPine Yes 5mg QD Take [address] (NORVASC) 5 3-07 by mouth Luke s MG tablet 12:12: daily. Medica l 27 [place] losartan Yes 100mg QD Take [address] (COZAAR) 3-07 mg by [facility] 100 MG 12:12: mouth Medical tablet 27 daily. Center methscopola Yes 5mg QD Take [address] mine 3-07 by mouth [facility] (PAMINE 12:12: nightly. Medica l FORTE) 5 MG 27 Center tablet levothyroxi Yes hypothyroid 125ug Take [address] ne 3-07 ism mcg by [facility] (SYNTHROID, 12:12: mouth Medic al LEVOTHROID) 27 Every Center 125 MCG morning on tablet an empty stomach. amLODIPine Yes 5mg QD Take [address] (NORVASC) 5 3-07 by mouth Luke s MG tablet 12:12: daily. Medica l 27 [place] losartan Yes 100mg QD Take [address] (COZAAR) 3-07 mg by [facility] 100 MG 12:12: mouth Medical tablet 27 daily. Center methscopola 2019-0 Yes 5mg QD Take [address] mine 3-07 by mouth [facility] (PAMINE 12:12: nightly. Medica l FORTE) 5 MG 27 Center tablet levothyroxi 2018-0 Yes hypothyroid 125ug Take [address] ne 3-07 ism mcg by [facility]ukes (SYNTHROID, 12:12: mouth Medic al LEVOTHROID) 27 Every Center 125 MCG morning on tablet an empty stomach. amLODIPine Yes 5mg QD Take [address] (NORVASC) 5 3-07 by mouth Luke s MG tablet 12:12: daily. Medica l 27 Center losartan Yes 100mg QD Take [address] (COZAAR) 3-07 mg by [facility] 100 MG 12:12: mouth Medical tablet 27 daily. Center methscopola 2019-0 Yes 5mg QD Take [address] mine 3-07 by mouth [facility] (PAMINE 12:12: nightly. Medica l FORTE) 5 MG 27 Center tablet glipiZIDE 2018-0 Yes 5mg QD Take [address] [facility] [address] (GLUCOTROL 5-16 tablets (5 Mindy es XL) 2.5 MG 00:00: mg total) Me dical 24 hr 00 by mouth Center tablet daily. glipiZIDE 2018-0 Yes 5mg QD Take [address] [address] (GLUCOTROL 5-16 tablets (5 Mindy es XL) 2.5 MG 00:00: mg total) Me dical 24 hr 00 by mouth Center tablet daily. glipiZIDE 2018-0 Yes 5mg QD Take [address] [address] (GLUCOTROL 5-16 tablets (5 Mindy es XL) 2.5 MG 00:00: mg total) Me dical 24 hr 00 by mouth Center tablet daily. warfarin 2018-0 Yes 2.5mg QD Take 2.[address] (COUMADIN) 4-25 mg by [facility]ukes 2.5 MG 00:00: mouth Medical tablet 00 daily . Center warfarin 2018-0 Yes 2.5mg QD Take 2.[address] (COUMADIN) 4-25 mg by [facility]ukes 2.5 MG 00:00: mouth Medical tablet 00 daily . Center warfarin 2018-0 Yes 2.5mg QD Take 2.[address] (COUMADIN) 4-25 mg by [facility]ukes 2.5 MG 00:00: mouth Medical tablet 00 daily . [place] gabapentin 0 Yes 600mg Q.[id number] Take [address] (NEURONTIN) 4-16 [id number] mg by L ukes 600 MG 00:00: 3D mouth 3 Medical tablet 00 (three) Center times daily . gabapentin Yes 600mg Q.[id number] Take [address] (NEURONTIN) 4-16 [id number] mg by L ukes 600 MG 00:00: 3D mouth 3 Medical tablet 00 (three) Center times daily . gabapentin 2017-0 Yes 600mg Q.[id number] Take [address] (NEURONTIN) 4-16 [id number] mg by L ukes 600 MG 00:00: 3D mouth 3 Medical tablet 00 (three) Center times daily . liothyronin Yes 5ug QD Take [address] [facility] e (CYTOMEL) 3-21 by mouth Luke s 5 MCG 00:00: daily . Medical tablet 00 [place] liothyronin Yes 5ug QD Take [address] [facility] e (CYTOMEL) 3-21 by mouth Luke s 5 MCG 00:00: daily . Medical tablet 00 [place] liothyronin Yes 5ug QD Take [address] e (CYTOMEL) 3-21 by mouth Luke s 5 MCG 00:00: daily . Medical tablet 00 [place] Immunizations Ordered Filled Immunization Date Status Comments [facility] e Immunization Name Name SARS-COV-2 COVID-19 2020-10-25 Completed Unive rsity of MODERNA VACCINE 00:00:00 [facility] SARS-COV-2 COVID-19 2020-10-25 Completed Unive rsity of MODERNA VACCINE 00:00:00 [facility] SARS-COV-2 COVID-19 2020-09-27 Completed Unive rsity of MODERNA VACCINE 00:00:00 [facility] SARS-COV-2 COVID-19 2020-09-27 Completed Unive rsity of MODERNA VACCINE 00:00:00 [facility] Influenza Virus 2020-05-07 Completed Universit y of Vaccine Quad IM 00:00:00 [facility] Multi-dose 6+ MO Branch Influenza Virus 2020-05-07 Completed Universit y of Vaccine Quad IM 00:00:00 [facility] [place] ical Multi-dose 6+ MO Branch Influenza Virus 2019-07-10 Completed Universit y of Vaccine Quad IM 00:00:00 [place] Med ical Multi-dose 6+ MO Branch Influenza Virus 2019-07-10 Completed Universit y of Vaccine Quad IM 00:00:00 [facility] [place] ical Multi-dose 6+ MO [place] Vital Signs Vital Name Observation Time Observation Value Comments Source Body height 2022-05-17 15:02:00 162.6 cm [facility] Body weight 2022-05-17 15:02:00 77.565 kg [facility] BMI 2022-05-17 15:02:00 29.35 kg/m2 [facility] Systolic blood 2021-03-13 20:52:00 132 mm[Hg] Univer sity of pressure [facility] Diastolic blood 2021-03-13 20:52:00 69 mm[Hg] Unive rsity of [facility] Heart rate 2021-03-13 20:52:00 63 /min [facility] Body temperature 2021-03-13 20:52:00 36.94 Noemy [facility] Respiratory rate 2021-03-13 20:52:00 18 /min [facility] Oxygen saturation in 2021-03-13 20:52:00 97 /min [facility] Arterial blood by [facility] Pulse oximetry [place] Body height 2021-03-11 07:30:00 162.6 cm [facility] Body weight 2021-03-11 07:30:00 76 kg bed scale [facility] BMI 2021-03-11 07:30:00 28.76 kg/m2 [facility] Procedures Procedure Date / Time Performing Clinician Source Performed MRI BRAIN W WO CONTRAST 2022-05-17 16:05:47 Marysol Nguyen [facility] AUTHORIZATION FOR RELEASE 2021-12-30 05:01:00 Doctor Unassigned, [facility] [place] EXTERNAL PROVIDER RECORDS 2021-03-24 05:01:00 Doctor Unassigned, [facility] [place] POCT GLUCOSE (AUTOMATED) 2021-03-13 16:51:00 Josy Edge [facility] POCT GLUCOSE (AUTOMATED) 2021-03-13 13:05:00 Josy Edge [facility] CBC WITHOUT DIFF 2021-03-13 11:24:00 Harrison [facility] [place] [facility] BASIC METABOLIC PANEL 2021-03-13 11:24:00 Harrison [facility] (NA, K, CL, CO2, GLUCOSE, Medica l Branch BUN, CREATININE, CA) POCT GLUCOSE (AUTOMATED) 2021-03-13 05:07:00 Josy Edge Uni [facility] POCT GLUCOSE (AUTOMATED) 2021-03-12 23:47:00 Josy Edge [facility] CBC WITHOUT DIFF 2021-03-12 23:30:00 Harrison [facility] [place] [facility] POCT GLUCOSE (AUTOMATED) 2021-03-12 20:23:00 Josy Edge [facility] POCT GLUCOSE (AUTOMATED) 2021-03-12 19:28:00 Josy Edge [facility] IR IVC FILTER INSERTION 2021-03-12 18:43:35 Alvaro Shields [facility] POCT GLUCOSE (AUTOMATED) 2021-03-12 13:12:00 Josy Edge [facility] BASIC METABOLIC PANEL 2021-03-12 10:25:00 [facility] ([facility], K, CL, CO2, GLUCOSE, Medica l Branch BUN, CREATININE, CA) CBC WITH DIFF 2021-03-12 10:25:00 Harrison [facility] MAGNESIUM 2021-03-12 10:25:00 Harrison [facility] ACTIVATED PARTIAL 2021-03-12 05:01:00 Alvaro Shields [facility] POCT GLUCOSE (AUTOMATED) 2021-03-12 01:11:00 Josy Edge [facility] POCT GLUCOSE (AUTOMATED) 2021-03-11 21:16:00 Josy Edge [facility] BASIC METABOLIC PANEL 2021-03-11 20:47:00 Pamela Terry [facility] (NA, K, CL, CO2, GLUCOSE, Medica l Branch BUN, CREATININE, CA) ACTIVATED PARTIAL 2021-03-11 18:53:00 Alvaro Shields [facility] US LOWER EXTREMITY VEIN 2021-03-11 17:18:10 Alvaro Shields [facility] WITH COMPRESSION Medical Branch BILATERAL (ONLY FOR RULE OUT DVT) CT ABDOMEN PELVIS W 2021-03-11 17:16:28 Alvaro Shields [facility] CONTRAST [facility] Branch POCT GLUCOSE (AUTOMATED) 2021-03-11 16:50:00 Josy Edge [facility] POCT GLUCOSE (AUTOMATED) 2021-03-11 14:31:00 Josy Edge [facility] COVID-19 (ID NOW RAPID 2021-03-11 13:18:00 Alvaro Shields [facility] TESTING) Medical Branch LAB ONLY COVID 2021-03-11 13:18:[address] [facility] CBC WITH DIFF 2021-03-11 13:17:00 Cornelius [facility] FREE T4 2021-03-11 13:17:00 Cornelius [facility] PROTHROMBIN TIME / INR 2021-03-11 13:17:00 Alvaro Shields [facility] IRON PANEL 2021-03-11 13:17:00 Cornelius [facility] COMP. METABOLIC PANEL 2021-03-11 13:15:00 Alvaro Shields [facility] ([id number]) Medical Branch MAGNESIUM 2021-03-11 13:15:00 Alvaro Shields [facility] FREE T3 2021-03-11 13:15:00 [facility] 2021-03-11 13:15:00 Cornelius [facility] ACTIVATED PARTIAL 2021-03-11 10:38:00 Alvaro Shields [facility] HOSPITAL ADMISSION 2021-03-11 05:01:00 Doctor Unassigned, [facility] [place] Medical [facility] Plan of Care Planned Activity Planned Date Details Comments Source Future Scheduled Test 2022-05-17 HEPATITIS B VACCINES [facility] 10:30:12 (1 of 3 - 3-dose series) [code = HEPATITIS B VACCINES (1 of 3 - 3-dose series)] Future Scheduled Test 2022-05-17 SHINGLES VACCINES (1 [facility] 10:30:12 of 2) [code = SHINGLES VACCINES (1 of 2)] Future Scheduled Test 2022-05-17 65+ PNEUMOCOCCAL Me [facility] 10:30:12 VACCINE (1 - PCV) [code = 65+ PNEUMOCOCCAL VACCINE (1 - PCV)] Future Scheduled Test 2022-05-17 COVID-19 VACCINE (4 - [facility] 10:30:12 Booster for Moderna series) [code = COVID-19 VACCINE (4 - Booster for Moderna series)] Future Scheduled Test 2022-05-17 INFLUENZA VACCINE [facility] 10:30:12 [code = INFLUENZA VACCINE] Future Scheduled Test 2021-05-[address] V[address] [facility] 00:00:00 (#1) [code = Medical Center INFLUENZA VACCINE (#1)] Future Scheduled Test 2020-09-[address] [facility] 00:00:00 (12+) [code = Medical Center DEPRESSION SCREENING (12+)] Future Scheduled Test 2020-09-05 FALLS RISK SCREENING [facility] 00:00:00 [code = FALLS RISK Medical C enter SCREENING] Future Scheduled Test 2020-05-[address] IN[address] VACC[address] [facility] 00:00:00 (#1) [code = Medical Center INFLUENZA VACCINE (#1)] Future Scheduled Test 2004-07-[address] [facility] 00:00:00 WELLNESS (YEAR 2 or Medical Center FIRST YEAR if no IPPE) [code = MEDICARE ANNUAL WELLNESS (YEAR 2 or FIRST YEAR if no IPPE)] Future Scheduled Test 2004-07-[address] [facility] 00:00:00 WELLNESS (YEAR 2 or Medical Center FIRST YEAR if no IPPE) [code = MEDICARE ANNUAL WELLNESS (YEAR 2 or FIRST YEAR if no IPPE)] Future Scheduled Test 2003 PNEUMOCOCCAL 65+ YRS [facility] 00:00:00 (1 of 1 - Medical Center [id number]_Ypvuayk PCV13) [code = PNEUMOCOCCAL 65+ YRS (1 of 1 - WKDX49_Mjmrmpt PCV13)] Future Scheduled Test 2003 PNEUMOCOCCAL 65+ YRS [facility] 00:00:00 (1 of 1 - Medical Center SUSA59_Vpwntdf PCV13) [code = PNEUMOCOCCAL 65+ YRS (1 of 1 - PUOZ24_Mlotfet PCV13)] Future Scheduled Test 1988 SHINGLES VACCINES ([address] [facility] 00:00:00 of 2) [code = Medical Center SHINGLES VACCINES (1 of 2)] Future Scheduled Test 1957 DTAP/TDAP/TD VACCINES [facility] 00:00:00 (1 - Tdap) [code = Medical C enter DTAP/TDAP/TD VACCINES (1 - Tdap)] Future Scheduled Test 1950 COVID-19 VACCINE (1) [facility] 00:00:00 [code = COVID-[address] VACCINE (1)] Future Appointment 2022-07-05 Marysol Nguyen MD, [facility] 11:30:[address] [place] [address]; [address] [address] Future Appointment 2022-07-05 Marysol Nguyen MD, [facility] 11:30:[address] [place] [address]; [place] [address], [place] [address] Procedure 2022-07-05 ETHMOIDECTOMY, TOTAL, Method [facility] 16:30:00 VIA EXTRANASAL APPROACH Encounters Start End Encounter Admission Attending Care Care Encounter Source Date/Time Date/Time Type Type Clinicians Facility Department ID 2021-10-05 [id number] [facility] 11:30:00 Kemar 50 [facility] 2021-09-30 Outpatient Courtney, [facility] [id number] Common 11:17:12 Chel [id number] [facility] 2021-09-30 Outpatient Leeanna, [facility] [id number] Common 11:13:55 Dany [id number] [facility] 2021-03-11 Inpatient U KLEY [facility] [id number] Univers 02:03:00 JOSY curtis [facility] 2020-12-21 Inpatient U VENEGAS [facility] [id number] Univers 05:34:00 AAORN BOYD [facility] 2022-05-17 2022-05-17 Outpatient WENDY [facility] [id number] [place] 00:00:00 00:00:[address] 2022-04-15 2022-04-15 Travel 1.2.840.1 1.2.755.487 [id number] Methodi 00:00:00 00:00:[address] 3.430.2.7 0.2.7.3.698 Ho spita .3.905308 084.8 l .8 2022-04-12 2022-04-12 Outpatient LEEANNA_R [facility] 8298 - [place] 00:00:00 00:00:00 808 [facility] 2022-04-07 2022-04-07 Travel 1.2.840.1 1.2.278.549 [id number] Methodi 00:00:00 00:00:[address] 3.430.2.7 0.2.7.3.698 Ho spita .3.924336 084.8 l .8 2022-02-16 2022-02-16 Outpatient LEEANNA_Mikki [facility] 8298 - [place] 02:37:00 02:37:00 614 Commun i ty Hospita [facility] 2022-02-16 2022-02-16 Outpatient Leeanna [facility] [id number] 294-[id number] 00:00:00 00:00:00 Dany n62-93bj-a Juanpablo [id number] 2021-12-30 2021-12-30 Orders Doctor MEYERS 1.2.840.114 [id number] Univers 00:00:00 00:00:00 Only Unassigned, TAMARA 350.1.13.10 ity of [place] [facility] 4.2.7.2.686 Dominic as [id number] [address] 2021-11-27 2021-11-27 Outpatient LEEANNA_R [facility] 8298 - [place] 02:40:00 02:40:00 325 [facility] 2021-11-17 2021-11-17 Outpatient ERICKSON_R [facility] [id number] [place] 04:12:00 04:12:00 315 [facility] 2021-11-17 2021-11-17 Outpatient Leeanna [facility] [id number] 60c-a 00:00:00 00:00:00 Dany 49c-11ec-a Juanpablo [id number] 2021-11-10 2021-11-10 Outpatient ERICKSON_R [facility] 8298 - [place] 12:26:00 12:26:00 308 [facility] 2021-11-10 2021-11-10 Outpatient Leeanna, [facility] [id number] [id number] 00:00:00 00:00:00 Dany u73-03vj-5 Juanpablo [id number] 2021-11-09 2021-11-09 Outpatient ERICKSON_R [facility] 8298 - [place] 12:10:00 12:10:00 307 [facility] 2021-11-09 2021-11-09 Outpatient Leeanna, [facility] [id number] ce2-9 00:00:00 00:00:00 Dany r01-08xd-s Juanpablo [id number] ef8fad 2021-11-09 2021-11-09 Outpatient Iraheta, [facility] [id number] [id number] 00:00:00 00:00:00 Dany i5t-43ya-9 Juanpablo [id number] 2021-11-09 2021-11-09 Outpatient Iraheta, [facility] [id number] 96e-9 00:00:00 00:00:00 Dany m2f-29gz-0 Juanpablo [id number] 2021-11-06 2021-11-06 Outpatient ERICKSON_R [facility] [id number] [place] 12:37:00 12:37:00 304 [facility] 2021-11-06 2021-11-06 Outpatient Leeanna [facility] [id number] 6d2-9 00:00:00 00:00:00 Dany be1-11ec-a Juanpablo [id number] 2021-11-05 2021-11-05 Outpatient ERICKSON_R [facility] [id number] -[id number] [place] 03:35:00 03:35:00 303 [facility] 2021-11-05 2021-11-05 Outpatient Leeanna [facility] [id number] f5c-9 00:00:00 00:00:00 Dany d75-95zy-o Juanpablo [id number] [id number] 2021-11-03 2021-11-03 Outpatient ERICKSON_R [facility] 8298 - [place] 12:59:00 12:59:00 301 [facility] 2021-11-03 2021-11-03 Outpatient Leeanna [facility] [id number] afc-9 00:00:00 00:00:00 Dany 989-11ec-b Juanpablo h14- [id number] 2021-11-02 2021-11-02 Outpatient ERICKSON_R [facility] [id number] -[id number] [place] 03:40:00 03:40:00 228 [facility] 2021-11-02 2021-11-02 Outpatient Leeanna [facility] [id number] 14e-9 00:00:00 00:00:00 Dany 0r4-09nx-7 Juanpablo [id number] [id number] 2021-10-27 2021-10-27 Outpatient ERICKSON_R [facility] [id number] -[id number] [place] 04:29:00 04:29:00 222 [facility] 2021-10-27 2021-10-27 Outpatient Leeanna [facility] [id number] [id number] 00:00:00 00:00:00 Dany 425-11ec-b Juanpablo [id number] 2021-10-01 2021-10-01 Outpatient ERICKSON_R [facility] [id number] -[id number] [place] 06:53:00 06:53:00 127 [facility] 2021-10-01 2021-10-01 Outpatient Leeanna [facility] [id number] b0a-7 00:00:00 00:00:00 Dany fcc-11ec-9 Juanpablo [id number] 2021-09-01 2021-09-01 Outpatient ERICKSON_R [facility] [id number] -[id number] [place] 10:43:00 10:43:00 228 [facility] 2021-09-01 2021-09-01 Outpatient Leeanna, [facility] [id number] ea0-7 00:00:00 00:00:00 Dany 071-11ec-9 Juanpablo [id number] 2021-07-02 2021-07-02 Outpatient ERICKSON_R [facility] [id number] [place] 10:49:00 10:49:00 028 [facility] 2021-07-02 2021-07-02 Outpatient Leeanna, [facility] [id number] e86-3 00:00:00 00:00:00 Dany 7fd-11ec-a Juanpablo [id number] 2021-06-23 2021-06-23 Outpatient ERICKSON_R [facility] [id number] [place] 01:20:00 01:20:00 019 [facility] 2021-05-19 2021-05-19 Outpatient ERICKSON_R [facility] [id number] -[id number] [place] 01:20:00 01:20:00 914 [facility] 2021-05-05 2021-05-05 Lynne Nino 1.2.840.8 [id number] Univers 00:00:00 00:00:00 Management 40419.1.1 i ty of 3.104.2.7 [place] .3.028544 Medica l .8 Branch 2021-04-28 2021-04-28 [facility] Jose Eduardo Valdovinos 1.2.840.9 [id number] Univers 07:31:12 23:59:00 Encounter [facility] 04599.1.1 ity of 3.104.2.7 [place] .3.289680 Medica l .8 [place] 2021-04-13 2021-04-13 Outpatient ERICKSON_R [facility] [id number] -[id number] [place] 11:47:00 11:47:00 809 [facility] 2021-04-13 2021-04-13 Outpatient Leeanna, [facility] [id number] c82-f 00:00:00 00:00:00 Dany 926-11eb-8 Juanpablo [id number] 2021-04-07 2021-04-07 Outpatient ERICKSON_R [facility] [id number] -[id number] [place] 12:33:00 12:33:00 803 Commun i ty [facility] Clin[facility] 2021-04-06 2021-04-06 Outpatient ERICKSON_R [facility] [id number] -[id number] [place] 04:34:00 04:34:00 802 [facility] 2021-04-06 2021-04-06 Outpatient Leeanna, [facility] [id number] 86c-f 00:00:00 00:00:00 Dany 3s2-82wx-b Juanpablo [id number] 2021-04-01 2021-04-01 Outpatient ERICKSON_R [facility] [id number] -[id number] [place] 01:49:00 01:49:00 7[address] 2021-03-24 2021-03-24 Orders Doctor 1.2.840.3 [id number] Univers 00:00:00 00:00:00 Only Unassigned, 51255.1.1 ity of [place] 3.104.2.7 [place] .3.873394 Medica l .8 [place] 2021-03-24 2021-03-24 Orders Doctor MIRA 1.2.840.114 [id number] 00:00:00 00:00:00 Only Unassigned, TAMARA 350.1.13.10 [place] [facility] 4.2.7.2.686 [id number] 009 2021-03-20 2021-03-20 Outpatient LEEANNA_R [facility] [id number] -[id number] [place] 10:54:00 10:54:00 [address] [facility] 2021-03-20 2021-03-20 Outpatient Leeanna [facility] 1dead 38a-e 00:00:00 00:00:00 Dany 643-11eb-b Juanpablo [id number] 2021-03-18 2021-03-18 Telephone Harrison, 1.2.840.4 [id number] Univers 00:00:00 00:00:00 Pamela 19261.1.1 ity of 3.104.2.7 [place] .3.023647 Medica l .8 Branch 2021-03-18 2021-03-18 Telephone [facility], [facility] 1.2.490.267 1567 8195 00:00:00 00:00:00 Pamela PRIMARY 350.1.13.10 CARE 4.2.7.2.686 PAVILLION [id number] 389 2021-03-16 2021-03-16 Transition Barker, 1.2.840.7 [id number] Univers 00:00:00 00:00:00 of Care Chelsey 48395.1.1 ity of 3.104.2.7 [place] .3.792164 Medica l .8 Branch 2021-03-16 2021-03-16 Transition Doyle Barker 1.2.840.114 857 [id number] 00:00:00 00:00:00 of Care Chelsey Del Angel 350.1.13.10 [place] 4.2.7.2.686 [id number] 403 2021-03-11 2021-03-13 [facility] 1.2.840.1 [id number] [facility] 02:03:00 17:36:00 Encounter Josy 34222.1.1 it y of 3.104.2.7 [place] .3.847554 Medica l .8 Branch 2021-03-11 2021-03-13 [facility] Dacia Edge 1.2.840.114 [id number] 02:03:00 17:36:00 Encounter Josy Tamara 350.1.13.[address]2.686 [id number] 100 2021-03-12 2021-03-12 Case Zach, 1.2.840.7 [id number] Univers 00:00:00 00:00:00 Management Avtar 08646.1.1 i ty 3.104.2.7 [facility]3.873537 Medica l 8 Branch 2021-03-12 2021-03-12 Case Zach [facility] 1.2.938.901 1393 1856 00:00:00 00:00:00 Management Avtar [facility] 350.1.13.[address]686 [id number] 2021-02-25 2021-02-25 Outpatient ERROMAN_R [facility] [id number] -[id number] [place] 01:36:00 01:36:00 623 [facility] i [facility] Clin[facility] 2021-02-20 2021-02-20 Orders Doctor MIRA 1.2.840.114 [id number] 00:00:00 00:00:00 Only Unassigned, TAMARA 350.1.13.10 [place] [address]686 [id number] 009 2021-01-22 2021-01-22 Outpatient ERROMAN_Mikki [facility] [id number] -[id number] [place] 01:03:00 01:03:00 520 Commun i [facility]ita [facility] Clinics 2021-01-21 2021-01-21 Orders Doctor MIRA Nolasco2.840.114 [id number] 90 00:00:00 00:00:00 Only Unassigned, TAMARA 350.1.13.10 [place] [address]686 [id number] 009 2021-01-08 2021-01-08 Orders Doctor MIRA Nolasco2.840.114 [id number] 00:00:00 00:00:00 Only Unassigned, TAMARA 350.1.13.10 [place] [address]686 [id number] 009 2021-01-05 2021-01-05 Transition Doyle Quan 1.2.840.114 [id number] [id number] 00:00:00 00:00:00 of Care Todd Dunney 350.1.13.10 [place] 4.2.7.2.686 [id number] 2020-12-21 2021-01-02 [facility] Latoya Villagomez 1.2.8 40.114 [id number] 05:34:00 18:49:00 Encounter Fabrizio Samuels 350.1.13.10 [facility] 4.2.7.2.686 Tiesha Palomino [id number] 100 2020-12-27 2020-12-27 Surgery Dacia 1.2.840.114 [id number] 40 14:55:00 16:17:00 Tamara 350.1.13.10 [facility] 4.2.7.2.686 [id number] 103 2020-12-22 2020-12-22 Surgery [facility] 1.2.913.893 9715 3212 10:40:00 11:14:00 ICAL 350.1.13.10 [facility] 4.2.7.2.686 [facility] [id number] 2020-12-19 2020-12-19 Outpatient ERICKSON_R [facility] [id number] -[id number] [place] 11:02:00 11:02:00 416 [facility] 2020-12-19 2020-12-19 Outpatient Iraheta, [facility] [id number] 163-2 00:00:00 00:00:00 Dany 021-72e8-4 Juanpablo [id number] 958C30 2020-12-18 2020-12-18 Outpatient ERICKSON_R [facility] [id number] -[id number] [place] 01:01:00 01:01:00 415 [facility] 2020-11-17 2020-11-17 Outpatient ERICKSON_R [facility] [id number] -[id number] [place] 04:44:00 04:44:00 315 Commun i ty [facility]ita [facility] Clinics 2020-11-17 2020-11-17 Outpatient Leeanna [facility] [id number] 698-2 00:00:00 00:00:00 Dany 021-7ff5-4 Juanpablo [id number] 958C30 2020-11-10 2020-11-10 Outpatient ERICKSON_R [facility] [id number] -[id number] [place] 11:28:00 11:28:00 308 Commun i ty Hospita [facility] Clinics 2020-11-10 2020-11-10 Outpatient Leeanna [facility] [id number] c82-2 00:00:00 00:00:00 Dany 021-8ece-4 Juanpablo [id number] 958C30 2020-10-30 2020-10-30 Outpatient ERICKSON_R [facility] [id number] -[id number] [place] 09:13:00 09:13:00 225 Commun i ty Hospita [facility] Clinics 2020-10-27 2020-10-27 Outpatient ERICKSON_R [facility] [id number] -[id number] [place] 02:56:00 02:56:00 222 Commun i ty Hospita [facility] Clinics 2020-10-27 2020-10-27 Outpatient Leeanna [facility] 0d3da a79-2 00:00:00 00:00:00 Dany 021-64c2-4 Juanpablo [id number] 958C30 2020-10-27 2020-10-27 Outpatient Leeanna [facility] 0d3da b8c-2 00:00:00 00:00:00 Dany 021-8ef7-4 Juanpablo [id number] [id number] 2020-10-21 2020-10-21 Outpatient ERICKSON_R [facility] [id number] -[id number] [place] 11:44:00 11:44:00 216 Commun i ty Hospita [facility] Clinics 2020-10-17 2020-10-17 Outpatient ERICKSON_R [facility] [id number] -[id number] [place] 11:23:00 11:23:00 212 Commun i ty Hospita l Clinics 2020-10-17 2020-10-17 Outpatient Leeanna [facility] [id number] 1d5-2 00:00:00 00:00:00 Dany 021-5973-4 Juanpablo [id number] 958C30 2020-10-13 2020-10-13 Outpatient ERICKSON_R [facility] [id number] -[id number] [place] 11:56:00 11:56:00 208 Commun i ty Hospita [facility] Clinics 2020-10-06 2020-10-06 Outpatient ERICKSON_R [facility] [id number] -[id number] [place] 01:03:00 01:03:00 201 Commun i ty Hospita [facility] Clinics 2020-09-30 2020-09-30 Outpatient ERICKSON_R [facility] [id number] -[id number] [place] 02:16:00 02:16:00 126 Commun i ty Hospita [facility] Clinics 2020-09-26 2020-09-26 Outpatient ERICKSON_R [facility] [id number] [place] 09:12:00 09:12:00 122 Commun i ty Hospita l Clinics 2020-09-23 2020-09-23 Outpatient ERICKSON_R [facility] [id number] [place] 09:29:00 09:29:00 119 Commun i ty Hospita l Clinics 2020-09-23 2020-09-23 Outpatient Leeanna [facility] [id number] 6aa-2 00:00:00 00:00:00 Dany 021-218f-4 Juanpablo [id number] 958C30 2020-09-12 2020-09-12 Outpatient ERICKSON_R [facility] [id number] -[id number] [place] 12:08:00 12:08:00 108 Commun i ty Hospita l Clinics 2020-09-11 2020-09-11 Outpatient ERICKSON_R [facility] [id number] -[id number] [place] 05:56:00 05:56:00 107 Commun i ty Hospita l Clinics 2020-09-08 2020-09-08 Outpatient ERICKSON_R [facility] [id number] -[id number] [place] 10:49:00 10:49:00 104 Commun i ty Hospita l Clinics 2020-09-08 2020-09-08 Outpatient Leeanna [facility] [id number] 4b3-2 00:00:00 00:00:00 Dany 021-8fb9-4 Juanpablo [id number] 958C30 2020-09-01 2020-09-01 Outpatient JASON [facility] 8298 [place] 01:03:00 01:03:00 228 Commun i ty Hospita l Clinics Results Test Description Test Time Test Comments Results Result Comments Source POCT GLUCOSE (AUTOMATED) 2021-03-13 16:52:34 Test Item Value Reference Range Interpretation Comme nts POCT GLU (test code = 4411521241) 152 mg/dL 70-110 H Lab Interpretation (test code = 77930-2) Abnormal [place] [facility] METABOLIC PANEL (NA, K, CL, CO2, GLUCOSE, BUN, CREATININE, CA)2021-03-13 12:03:23 Test Item Value Reference Range Interpretation Comments NA (test code = 139 mmol/L 135-145 1937997726) K (test code = 3.5 mmol/L 3.5-5.0 3929759684) CL (test code = 112 mmol/L 98-108 H 3998900668) CO2 TOTAL (test code = 27 mmol/L 23-31 6187575275) AGAP (test code = <1 2-16 L 2412370601) BUN (test code = 22 mg/dL 7-23 5276144270) GLUCOSE (test code = 125 mg/dL 70-110 H 9265347821) CREATININE (test code = 0.64 mg/dL 0.50-1.04 3785365005) CALCIUM (test code = 7.9 mg/dL 8.6-10.6 L 5151850150) eGFR (test code = mL/min/1.73m2 6134260095) INDRA (test code = INDRA) Association of [...] tests). Lab Interpretation Abnormal (test code = 80993-6) [facility] WITHOUT [id number] 11:39:33 Test Item Value Reference Range Interpretation Comments WBC (test code = 6690-2) See_Comment L [A utomated message] The system [employer] generated this result transmit komal reference range : 4.30 - 11.10 10*3/?L. The reference range was not used to interpret this result as normal/abnormal . RBC (test code = 789-8) See_Comment L [Au tomated message] The system [employer] generated this result transmit komal reference range [...] See_Comment L [Au tomated message] The system [employer] generated this result transmit komal reference range : 166 - 358 10*3/?L. The reference range was not used to interpret this result as normal/abnormal . MPV (test code = 11.1 fL 9.5-12.9 78036-7) RDW-CV (test code = 16.7 % 12.0-15.5 H 788-0) RDW-SD (test code = 56.3 fL 39.0-49.9 H 15212-6) NRBC x10^3 (test code = <0.01 See_Comment [Au tomated message] 9446710846) The system [facility] generated this result transmit komal reference range : 10*3/?L. The reference range was not used to interpret this result as normal/abnormal . NRBC/100 WBC (test code See_Comment [Au tomated message] = 0778975169) The system [facility] generated this result transmit komal reference range : 0.0 - 10.0 /100 WBC s. The reference r ming was not used to interpret this result as normal/abnormal . IPF % (test code = 5636118913) Lab Interpretation (test Abnormal code = 75520-7) [place] [facility]56 Test Item Value Reference Range Interpretation Comments MAGNESIUM (test code = 7831410810) 2.6 mg/dL 1.7-2.4 H Lab Interpretation (test code = Abnormal 22016-1) [facility] WITH [id number] 10:36:35 Test Item Value Reference Range Interpretation [...] (test code = 56.6 fL 39.0-49.9 H 68412-0) RDW-CV (test code = 16.4 % 12.0-15.5 H 788-0) PLT (test code = See_Comment L [Automated 777-3) message] The sy stem which generated this result transmitted reference range : 166 - 358 10*3/ ?L. The reference r ming was not used to interpret this result as normal/abnormal . MPV (test code = 11.6 fL 9.5-12.9 52008-5) NRBC/100 WBC (test See_Comment [Automat ed code = [id number]) message] The system which generated this result transmitted reference range : 0.0 - 10.0 /100 WBCs. The refer ence range was not u sed to interpret th is result as normal/abnormal . NRBC x10^3 (test code <0.01 See_Comment [Auto mated = [id number]) message] The s ystem which generated this result transmitted reference range : 10*3/?L. The reference range was not used to interpret this result as normal/abnormal . GRAN MAT (NEUT) % 77.8 % (test code = 770-8) IMM GRAN % (test code 0.30 % = 0610878631) LYMPH % (test code = 16.7 % 736-9) MONO % (test code = 4.4 % 5905-5) EOS % (test code = 0.5 % 713-8) BASO % (test code = 0.3 % 706-2) GRAN MAT x10^3(ANC) 2.84 10*3/uL 1.88-7.09 (test code = 9756960038) IMM GRAN x10^3 (test <0.03 0.00-0.06 code = 7654148048) LYMPH x10^3 (test code 0.61 10*3/uL 1.32-3.29 L = 731-0) MONO x10^3 (test code 0.16 10*3/uL 0.33-0.92 L = 742-7) EOS x10^3 (test code = <0.03 0.03-0.39 L 711-2) BASO x10^3 (test code <0.03 0.01-0.07 = 704-7) Lab Interpretation Abnormal (test code = 76377-7) [facility]2021-03-12 05:32:09 Test Item Value Reference Range Interpretation Comments APTT Patient (test code >150 See_Comment HH [Au tomated message] = 7923-2) The system [employer] generated this result transmitted ref erence range: 26 - 36 Seconds. The reference range was not used to int erpret this result as normal/abnormal . Lab Interpretation (test Abnormal code = 48291-0) [facility] [id number] 15:29:50 Test Item Value Reference Range Interpretation Comments IRON (test code = 9384070385) 53 ug/dL 50-160 TIBC (test code = 0355278099) 329 ug/dL 250-410 % FE SAT (test code = 5374601671) 16 % 20-50 L Lab Interpretation (test code = Abnormal 91415-1) [facility] [id number] 15:14:27 Test Item Value Reference Range Interpretation Comments FREE T4 (test code = See_Comment [Autom ated message] [id number]) The system [employer] generated this result transmitted ref erence range: 0.78 - 2 .20 ng/dL:. The ref erence range was not u sed to interpret this result as normal/abnor mal. Lab Interpretation (test Normal code = 75796-9) [facility] [id number] 14:53:03 Test Item Value Reference Range Interpretation Comments FERRITIN (test code = 27.3 ng/mL 11.0-264.0 [id number]) INDRA (test code = INDRA) Biotin has been reported to cause a negative bias, interpret results relative to patient's use of biotin. Lab Interpretation (test Normal code = 28894-6) [facility] [id number] 14:31:57 Test Item Value Reference Range Interpretation Comments FREE T3 (test code = 7410647833) 1.71 pg/mL 2.77-5.27 L Lab Interpretation (test code = Abnormal 07777-1) [facility]. METABOLIC PANEL (14620)2021-03-11 14:26:43 Test Item Value Reference Range Interpretation Comments NA (test code = 141 mmol/L 135-145 9977418066) K (test code = 2.9 mmol/L 3.5-5.0 LL 4652581641) CL (test code = 106 mmol/L 98-108 7124154491) CO2 TOTAL (test code = 33 mmol/L 23-31 H 8433803170) AGAP (test code = 2-16 6968292478) BUN (test code = 14 mg/dL 7-23 3959300779) GLUCOSE (test code = 63 mg/dL 70-110 L 8800213234) CREATININE (test code = 0.53 mg/dL 0.50-1.04 5276843776) TOTAL BILI (test code = 0.5 mg/dL 0.1-1.9 6026738447) CALCIUM (test code = 7.9 mg/dL 8.6-10.6 L 8552441213) T PROTEIN (test code = 5.8 g/dL 6.3-8.2 L 7067210130) ALBUMIN (test code = 2.9 g/dL 3.5-5.0 L 0880054032) ALK PHOS (test code = 33 U/L 34-122 L 1235689732) ALTv (test code = 8 U/L 5-35 1742-6) AST(SGOT) (test code = 26 U/L 13-40 0548878578) eGFR (test code = mL/min/1.73m2 3124639055) INDRA (test code = INDRA) Association of [...] tests). Lab Interpretation Abnormal (test code = 20521-1) [facility] [id number] 13:40:32 Test Item Value Reference Range Interpretation Comments PROTIME PATIENT (test See_Comment H [Auto mated message] code = 5964-2) The system Flashtalking generated this result transmitted ref erence range: 10.1 - 1 2.6 Seconds. The reference range was not used to int erpret this result as normal/abnormal . INR (test code = 6301-6) Nor mal INR <1.1; Warfarin Therap eutic range 2.0 to 3. 0 or 2.5 to 3.5, dep ending upon the indica tions. Lab Interpretation (test Abnormal code = 23873-0) [facility] [id number] 14:50:00 Test Item Value Reference Range Interpretation [...] 1584) SOURCE(BEAKER) (test code = Urine, Voided 9439) [id number] 13:11:00 Test Item Value Reference Range Interpretation Comments LIPASE (BEAKER) (test code = 749) 45 U/L 8-78 BASIC METABOLIC [id number] 13:11:00 Test Item Value Reference Range Interpretation [...] APPLICABLE FOR DIALYSIS PATIEN TS. HEPATIC FUNCTION [id number] 13:11:00 Test Item Value Reference Range Interpretation [...] (test code = 14 U/L 6-55 347) [id number] 13:02:00 Test Item Value Reference Range Interpretation Comments PROTIME (BEAKER) (test code = 19.5 seconds 11.7-14.7 H 759) INR (BEAKER) (test code = 370) 1.6 <=5.9 PARTIAL THROMBOPLASTIN TIME 30.3 seconds 22.5-36.0 (BEAKER) (test code = 760) RECOMMENDED COUMADIN/WARFARIN INR THERAPY RANGESSTANDARD DOSE: 2.0 - 3.0 Includes: PROPHYLAXIS for venous thrombosis, systemic embolization; TREATMENT for venous thrombosis and/or pulmonary embolus.HIGH RISK: Target INR is 2.5-3.5 for patients with mechanical heart valves.CBC W/PLT COUNT & AUTO [id number] 12:56:00 Test Item Value Reference Range Interpretation [...] PERCENT (BEAKER) (test code = 2801) TISSUE [id number] 13:06:00Surgical Pathology Report Case: [id number] Authorizing Provider: Luiz Hayes Collected: 03/14/2018 1115 Ordering Location: [facility] Endoscopy Received: 03/14/2018 1351 Services Pathologist: Mara Barboza MD Specimens: A) - Polyp, Duodenum B) - Stomach, Antrum, bx C) - Biopsy, Gastric, gastric body D) - Biopsy, Esophagus, random THIS ADDENDUM IS ISSUED TO REPORT THE RESULT OF IMMUNOHISTOCHEMICAL STUDY FOR HELICOBACTER PYLORI OM SPECIMEN B: - NEGATIVE CPT CODE: [id number] electronically signed by Mara Barboza MD on [...] ORGANISMS SEEN ON WARTHIN-STARRY STAIN - NO INTE STINAL METAPLASIA, DYSPLASIA OR MALIGNANCY NOTED D. ESOPHAGUS, RANDOM,ENDOSCOPIC BIOPSY - MULTIPLE FRAGMENTS OF SQUAMOUS MUCOSA WITH REACTIVE CHANGES - NO FEATURES OF REFLUX ESOPHAGITIS ARE SEEN - NO FEATURES OF EOSINOPHILIC ESOPHAGITIS NOTED - NO COLUMNAR MUCOSA PRESENT - NO DYSPLASIA OR MALIGNANCY SEEN Signing Pathologist Direct Phone Line: [phone] signed by Mara Barboza MD on 03/17/2018 at 10:35 [id number] X 4; [id number] X 2A. Polyp, duodenum. B. Stomach antrum. C. Biopsy,gastric, description gastric body. D. Biopsy, esophagus, description [...] the diagnostic report above:AMBER X 2 POCT-GLUCOSE [id number] 12:41:00 Test Item Value Reference Range Interpretation Comments POC-GLUCOSE METER 75 mg/dL 70-110 TESTED AT [place] [address] ([facility]) (test code = [facility] [address] 1538) BLOOD [id number] 06:00:00 Test Item Value Reference Range Interpretation Comments CULTURE (BEAKER) (test No growth in 5 days code = 1095) BLOOD [id number] 06:00:00 Test Item Value Reference Range Interpretation Comments CULTURE (BEAKER) (test No growth in 5 days code = 1095) POCT-GLUCOSE [id number] 12:32:00 Test Item Value Reference Range Interpretation Comments POC-GLUCOSE METER 217 mg/dL 70-110 H TESTED AT [place] [address] ([facility]) (test code = [facility] 1538) [address] POCT-GLUCOSE [id number] 08:36:00 Test Item Value Reference Range Interpretation Comments POC-GLUCOSE METER 92 mg/dL 70-110 TESTED AT [place] [address] ([facility]) (test code = [facility] [address] 1538) COMPREHENSIVE METABOLIC [id number] 04:59:00 Test Item Value Reference Range Interpretation [...] S NOT APPLICABLE FOR DIALYSIS PATIEN TS. [id number] 04:50:00 Test Item Value Reference Range Interpretation Comments MAGNESIUM (BEAKER) (test code = 1.7 mg/dL 1.6-2.6 627) PROTHROMBIN TIME/[id number] 04:35:00 Test Item Value Reference Range Interpretation Comments PROTIME (BEAKER) (test code = 23.7 seconds 11.7-14.7 H 759) INR (BEAKER) (test code = 370) 2.1 <=5.9 RECOMMENDED COUMADIN/WARFARIN INR THERAPY RANGESSTANDARD DOSE: 2.0 - 3.0 Includes: PROPHYLAXIS for venous thrombosis, systemic embolization; TREATMENT for venous thrombosis and/or pulmonary embolus.HIGH RISK: Target INR is 2.5-3.5 for patients with mechanical heart valves.CBC W/PLT COUNT & AUTO [id number] 04:24:00 Test Item Value Reference Range Interpretation [...] PERCENT (BEAKER) (test code = 2801) POCT-GLUCOSE [id number] 22:13:00 Test Item Value Reference Range Interpretation Comments POC-GLUCOSE METER 194 mg/dL 70-110 H TESTED AT [facility] 6720 (BEAKER) (test code = [place] 1538) [address] POCT-GLUCOSE [id number] 18:14:00 Test Item Value Reference Range Interpretation Comments POC-GLUCOSE METER 195 mg/dL 70-110 H TESTED AT [facility] 67 (BEAKER) (test code = [place] [employer] [place] 1538) [address] POCT-GLUCOSE [id number] 12:20:00 Test Item Value Reference Range Interpretation Comments POC-GLUCOSE METER 224 mg/dL 70-110 H TESTED AT [place] [address] (BEAKER) (test code = [place] [employer] [place] 1538) [address] [id number] 08:55:00 Test Item Value Reference Range Interpretation Comments LIPASE (BEAKER) (test code = 749) 471 U/L 8-78 H POCT-GLUCOSE [id number] 08:12:00 Test Item Value Reference Range Interpretation Comments POC-GLUCOSE METER 128 mg/dL 70-110 H TESTED AT [place] [address] (BEAKER) (test code = MICAH Kaye [facility] 1538) [address] [id number] 04:12:00 Test Item Value Reference Range Interpretation Comments T3 TOTAL (BEAKER) (test code = 656) 41 ng/dL 48-159 L T3, [id number] 04:11:00 Test Item Value Reference Range Interpretation Comments T3 FREE (BEAKER) (test code = 908) 1.31 pg/mL 1.71-3.71 L COMPREHENSIVE METABOLIC [id number] 04:01:00 Test Item Value Reference Range Interpretation [...] S NOT APPLICABLE FOR DIALYSIS PATIEN TS. [id number] 03:54:00 Test Item Value Reference Range Interpretation Comments MAGNESIUM (BEAKER) (test code = 1.7 mg/dL 1.6-2.6 627) PROTHROMBIN [id number] 03:53:00 Test Item Value Reference Range Interpretation Comments PROTIME (BEAKER) (test code = 22.4 seconds 11.7-14.7 H 759) INR (BEAKER) (test code = 370) 2.0 <=5.9 RECOMMENDED COUMADIN/WARFARIN INR THERAPY RANGESSTANDARD DOSE: 2.0 - 3.0 Includes: PROPHYLAXIS for venous thrombosis, systemic embolization; TREATMENT for venous thrombosis and/or pulmonary embolus.HIGH RISK: Target INR is 2.5-3.5 for patients with mechanical heart valves.CBC W/PLT COUNT & AUTO [id number] 03:46:00 Test Item Value Reference Range Interpretation [...] PERCENT (BEAKER) (test code = 2801) POCT-GLUCOSE [id number] 22:34:00 Test Item Value Reference Range Interpretation Comments POC-GLUCOSE METER 252 mg/dL 70-110 H TESTED AT [facility] 6720 (BEAKER) (test code = [place] 1538) [address] [id number] 19:36:00 Test Item Value Reference Range Interpretation Comments MAGNESIUM (BEAKER) (test code = 1.6 mg/dL 1.6-2.6 627) BASIC METABOLIC [id number] 19:36:00 Test Item Value Reference Range Interpretation [...] NOT APPLICABLE FOR DIALYSIS PATIEN TS. URINE [id number] 11:51:00 Test Item Value Reference Range Interpretation Comments CULTURE [facility] (test code = 1095) No growth POCT-GLUCOSE [id number] 11:42:00 Test Item Value Reference Range Interpretation Comments POC-GLUCOSE METER 205 mg/dL 70-110 H TESTED AT [place] [address] ([facility]) (test code = [facility] 1538) [address] POCT-GLUCOSE [id number] 08:08:00 Test Item Value Reference Range Interpretation Comments POC-GLUCOSE METER 119 mg/dL 70-110 H TESTED AT [place] [address] ([facility]) (test code = [facility] 1538) [address] C. DIFFICILE GDH [id number] 07:40:00 Test Item Value Reference Range Interpretation Comments CDT TOXIN (test code Negative Negative = [id number]) CDT GDH ANTIGEN Positive Negative A C. difficile present but (test code = toxin not detec komal. [id number]) Indicates colon ization with non-toxige lizbeth strain or level of tox in below detectable leve ls. No need for enteri c isolation. Leonela tment is rarely needed ( only when strong clinical suspicion for Clostridium difficile infection) Testing performed by [employer] Rapid Cassette Assay. For GDH, published sensitivity of the assay is 98.7% compared to cytotoxicity testing. For Toxin AB, published sensitivity is 87.8% and specificity 99.4% compared to cytotoxicity testing.Verification of kit performance was done by the [facility] Microbiology[facility] prior to clinical use.POCT-GLUCOSE [id number] 06:37:00 Test Item Value Reference Range Interpretation Comments POC-GLUCOSE METER 141 mg/dL 70-110 H TESTED AT [facility] 6720 (BEAKER) (test code = [place] 1538) [address] COMPREHENSIVE METABOLIC [id number] 04:48:00 Test Item Value Reference Range Interpretation [...] NOT APPLICABLE FOR DIALYSIS PATIEN TS. PROTHROMBIN TIME/[id number] 04:40:00 Test Item Value Reference Range Interpretation Comments PROTIME (BEAKER) (test code = 23.8 seconds 11.7-14.7 H 759) INR (BEAKER) (test code = 370) 2.1 <=5.9 RECOMMENDED COUMADIN/WARFARIN INR THERAPY RANGESSTANDARD DOSE: 2.0 - 3.0 Includes: PROPHYLAXIS for venous thrombosis, systemic embolization; TREATMENT for venous thrombosis and/or pulmonary embolus.HIGH RISK: Target INR is 2.5-3.5 for patients with mechanical heart valves.While on warfarin.[id number] 04:29:00 Test Item Value Reference Range Interpretation Comments MAGNESIUM (BEAKER) (test code = 2.0 mg/dL 1.6-2.6 627) CBC W/PLT COUNT & AUTO [id number] 04:11:00 Test Item Value Reference Range Interpretation [...] PERCENT (BEAKER) (test code = 2801) POCT-GLUCOSE [id number] 22:19:00 Test Item Value Reference Range Interpretation Comments POC-GLUCOSE METER 266 mg/dL 70-110 H TESTED AT [facility] 6720 (BEAKER) (test code = [facility] Mikki [facility] 1538) [address] [id number] 17:54:00 Test Item Value Reference Range Interpretation Comments POTASSIUM (BEAKER) (test code = 4.2 meq/L 3.5-5.1 379) [id number] 17:23:00 Test Item Value Reference Range Interpretation Comments MAGNESIUM (BEAKER) (test code = 1.7 mg/dL 1.6-2.6 627) POCT-GLUCOSE [id number] 12:41:00 Test Item Value Reference Range Interpretation Comments POC-GLUCOSE METER 111 mg/dL 70-110 H TESTED AT [facility] 6720 (BEAKER) (test code = [facility] Mikki [facility] 1538) [address] [id number] 12:40:00 Test Item Value Reference Range Interpretation Comments POTASSIUM (BEAKER) (test code = 3.5 meq/L 3.5-5.1 379) POCT-GLUCOSE [id number] 10:05:00 Test Item Value Reference Range Interpretation Comments POC-GLUCOSE METER 94 mg/dL 70-110 TESTED AT [facility] 6720 (BEAKER) (test code = [place] [address] 1579) COMPREHENSIVE METABOLIC [id number] 05:47:00 Test Item Value Reference Range Interpretation [...] S NOT APPLICABLE FOR DIALYSIS PATIEN TS. [id number] 05:44:00 Test Item Value Reference Range Interpretation Comments MAGNESIUM (BEAKER) (test code = 2.0 mg/dL 1.6-2.6 627) PROTHROMBIN TIME/[id number] 05:37:00 Test Item Value Reference Range Interpretation Comments PROTIME (BEAKER) (test code = 24.0 seconds 11.7-14.7 H 759) INR (BEAKER) (test code = 370) 2.2 <=5.9 RECOMMENDED COUMADIN/WARFARIN INR THERAPY RANGESSTANDARD DOSE: 2.0 - 3.0 Includes: PROPHYLAXIS for venous thrombosis, systemic embolization; TREATMENT for venous thrombosis and/or pulmonary embolus.HIGH RISK: Target INR is 2.5-3.5 for patients with mechanical heart valves.PROTHROMBIN TIME/[id number] 05:36:00 Test Item Value Reference Range Interpretation Comments PROTIME (BEAKER) (test code = 24.2 seconds 11.7-14.7 H 759) INR (BEAKER) (test code = 370) 2.2 <=5.9 RECOMMENDED COUMADIN/WARFARIN INR THERAPY RANGESSTANDARD DOSE: 2.0 - 3.0 Includes: PROPHYLAXIS for venous thrombosis, systemic embolization; TREATMENT for venous thrombosis and/or pulmonary embolus.HIGH RISK: Target INR is 2.5-3.5 for patients with mechanical heart valves.While on warfarin.CBC W/PLT COUNT & AUTO [id number] 05:35:00 Test Item Value Reference Range Interpretation [...] PERCENT (BEAKER) (test code = 2801) POCT-GLUCOSE [id number] 23:56:00 Test Item Value Reference Range Interpretation Comments POC-GLUCOSE METER 105 mg/dL 70-110 TESTED AT [facility] 6720 ([facility]) (test code = MICAH Kaye [facility] 1538) [address] TROPONIN [id number] 13:02:00 Test Item Value Reference Range Interpretation Comments TROPONIN I ([facility]) (test code = 0.02 ng/mL 0.00-0.03 397) [...] Reference Range Interpretation Comments B-TYPE NATRIURETIC PEPTIDE (BEAKER) 975 pg/mL 0-100 H (test code = 700) POCT-GLUCOSE [id number] 12:18:00 Test Item Value Reference Range Interpretation Comments POC-GLUCOSE METER 175 mg/dL 70-110 H TESTED AT [facility] 6720 (MATTHEW) (test code = [place] 1538) [address] U/S, ABDOMINAL, [id number] 10:23:00Abdomen limited area? Add comment if clarification [...] visualized because of bowel gas. Nonspecific slightly heterogeneousechotexture of the liver is noted. Liver contour appears smooth and liver appears normal in size. Inthe left hepatic lobe there is a 2.1 x 2.1 x 1.8 cm cyst. In the right hepatic lobe there is a 2.1 x 2.0 x 1.8 cm cyst. No suspicious liver mass demonstrated. Main portal vein is normal in caliber measuring 1.3 cm in diameter and demonstrates hepatopedal flow. Gallbladder is minimally distended with atransverse diameter of 2.5 cm. No pericholecystic fluid and no gallstones demonstrated. No definite gallbladder wall thickening. Ricks's sign reported as negative. Common bile duct is normal in caliber measuring 0.7 cm in diameter. Right kidney is normal in size measuring 10.7 x 5.8 x 5.5 cm. No right hydronephrosis or right renal mass demonstrated. IMPRESSION: No evidence of cholelithiasis or cholecystitis. Signed: Bouchra Coffeyeport Verified Date/Time: 01/14/2018 10:23:02 Reading Location:[facility] C013X [facility] Consult Reading Room T4, [id number] 08:42:00 Test Item Value Reference Range Interpretation Comments FREE T4 (MATTHEW) (test code = 655) 0.83 ng/dL 0.70-1.48 POCT-GLUCOSE [id number] 08:37:00 Test Item Value Reference Range Interpretation Comments POC-GLUCOSE METER 161 mg/dL 70-110 H TESTED AT [facility] 6720 (BEAKER) (test code = [place] 1538) [address] TSH/FREE T4 IF [id number] 08:05:00 Test Item Value Reference Range Interpretation Comments THYROID STIMULATING HORMONE 0.02 uIU/mL 0.35-4.94 L (BEAKER) (test code = 772) VITAMIN B12 AND [id number] 07:42:00 Test Item Value Reference Range Interpretation Comments VITAMIN B12 (BEAKER) (test code = 1276 pg/mL 213-816 H 774) FOLATE (BEAKER) (test code = 362) 8.8 ng/mL >=7.0 LIPID [id number] 07:14:00 Test Item Value Reference Range Interpretation [...] Borderline 130-159 High 160-189 Very High >=190TROPONIN I 2018-01-14 07:12:00 Test Item Value Reference Range Interpretation [...] acute neurological disease, and persistent tachyarrhythmia.URINALYSIS W/ [id number] 06:35:00 Test Item Value Reference Range Interpretation [...] 517) SOURCE(BEAKER) (test code = Urine, [place] 3735) [id number] 06:07:00 Test Item Value Reference Range Interpretation Comments MAGNESIUM (BEAKER) (test code = 1.8 mg/dL 1.6-2.6 627) [id number] 05:32:00 Test Item Value Reference Range Interpretation Comments MAGNESIUM (BEAKER) (test code = 2.5 mg/dL 1.6-2.6 627) COMPREHENSIVE METABOLIC [id number] 05:32:00 Test Item Value Reference Range Interpretation [...] NOT APPLICABLE FOR DIALYSIS PATIEN TS. PROTHROMBIN TIME/[id number] 05:10:00 Test Item Value Reference Range Interpretation Comments PROTIME (BEAKER) (test code = 25.1 seconds 11.7-14.7 H 759) INR (BEAKER) (test code = 370) 2.3 <=5.9 RECOMMENDED COUMADIN/WARFARIN INR THERAPY RANGESSTANDARD DOSE: 2.0 - 3.0 Includes: PROPHYLAXIS for venous thrombosis, systemic embolization; TREATMENT for venous thrombosis and/or pulmonary embolus.HIGH RISK: Target INR is 2.5-3.5 for patients with mechanical heart valves.CBC W/PLT COUNT & AUTO [id number] 05:03:00 Test Item Value Reference Range Interpretation [...] 0-1 PERCENT (BEAKER) (test code = 2801) [id number] 02:52:00 Test Item Value Reference Range Interpretation Comments PROCALCITONIN (BEAKER) (test code 0.41 ng/mL <0.05 H = 3036) SEPSIS RISK (ng/mL)Low: 0.05-0.50Intermediate: 0.51-2.00High: >=2.01LACTIC ACID, VENOUS, WHOLE [id number] 02:06:00 Test Item Value Reference Range Interpretation Comments LACTATE BLOOD VENOUS 1.3 mmol/L 0.5-2.2 Specime n slightly (2) (BEAKER) (test hemolyzed code = 2872) Effective 01/07/2016: Units/Reference Range ChangeNew: 0.5-2.2 mmol/L Previous: 5- 20 mg/dLCOMPREHENSIVE METABOLIC [id number] 02:06:00 Test Item Value Reference Range Interpretation [...] S NOT APPLICABLE FOR DIALYSIS PATIEN TS. [id number] 02:04:00 Test Item Value Reference Range Interpretation Comments LIPASE (BEAKER) (test code = 749) 730 U/L 8-78 H [id number] 02:04:00 Test Item Value Reference Range Interpretation Comments AMYLASE (BEAKER) (test code = 349) 226 U/L 25-125 H PROTHROMBIN TIME/[id number] 01:45:00 Test Item Value Reference Range Interpretation Comments PROTIME (BEAKER) (test code = 23.9 seconds 11.7-14.7 H 759) INR (BEAKER) (test code = 370) 2.1 <=5.9 RECOMMENDED COUMADIN/WARFARIN INR THERAPY RANGESSTANDARD DOSE: 2.0 - 3.0 Includes: PROPHYLAXIS for venous thrombosis, systemic embolization; TREATMENT for venous thrombosis and/or pulmonary embolus.HIGH RISK: Target INR is 2.5-3.5 for patients with mechanical heart valves.[id number] 01:45:00 Test Item Value Reference Range Interpretation Comments PARTIAL THROMBOPLASTIN TIME 32.4 seconds 22.5-36.0 (BEAKER) (test code = 760) CBC W/PLT COUNT & AUTO [id number] 01:38:00 Test Item Value Reference Range Interpretation [...] % 0-1 PERCENT (BEAKER) (test code = 6616)
--- NOTE | 2022-05-18 10:38 | EDPHYS ---
Physician Documentation [facility] Name: Emelia Payan Age: 81 yrs Sex: Female : 1940 Arrival Date: 05/18/2022 Time: 09:15 Bed 8 Private MD: ED Physician Jose Elias Marquez HPI: 05/18 10:28 This 81 yrs old Female presents to ER via EMS with complaints of fall and gilberto right hip pain. 10:28 The patient presents with decreased range of motion, pain, that is acute. The gilberto complaints affect the right hip and right upper thigh. Context: The problem was sustained at home, resulted from the patient falling, the patient is not able to bear weight. Onset: The symptoms/episode began/occurred just prior to arrival. Modifying factors: The symptoms are alleviated by nothing. remaining still. Associated signs and symptoms: The patient has no apparent associated signs or symptoms. Treatment prior to arrival includes: no previous treatment. Severity of symptoms: At their worst the symptoms were moderate, severe, in the emergency department the symptoms are unchanged. The patient has not experienced similar symptoms in the past. Historical: - Allergies: 09:18 Bactrim; ap3 09:18 Cipro; ap3 09:18 Xarelto; ap3 09:18 Zosyn; ap3 - Home Meds: 09:18 atorvastatin 20 mg oral tab [Active]; amlodipine 5 mg tab 2 tabs once daily [Active]; ap3 clonazepam 0.5 mg Oral tab 1 tab as needed [Active]; zinc sulfate 50 mg zinc (220 mg) Oral tab daily [Active]; glipizide 2.5 mg Oral tr24 1 tabs once daily [Active]; - PMHx: 09:18 adrenal insuficiency; Anxiety; Atrial Fib; CHF; CVA; Diabetes - IDDM; DVT; ap3 Hyperlipidemia; Hypertension; Hypothyroidism; L groin blood clot; lymphedema; Pancreatitis; - PSHx: 09:18 filter; ap3 - Immunization history:: Client reports receiving the 2nd dose of the Covid vaccine. - Social history:: Smoking status: Patient denies any tobacco usage or history of. - Family history:: not pertinent. ROS: 10:28 Constitutional: Negative for fever, chills, and weight loss, Eyes: Negative for injury, gilberto pain, redness, and discharge, ENT: Negative for injury, pain, and discharge, Neck: Negative for injury, pain, and swelling, Cardiovascular: Negative for chest pain, palpitations, and edema, Respiratory: Negative for shortness of breath, cough, wheezing, and pleuritic chest pain, Abdomen/GI: Negative for abdominal pain, nausea, vomiting, diarrhea, and constipation, Back: Negative for injury and pain, : Negative for injury, bleeding, discharge, and swelling, Skin: Negative for injury, rash, and discoloration, Neuro: Negative for headache, weakness, numbness, tingling, and seizure, Psych: Negative for depression, anxiety, suicide ideation, homicidal ideation, and hallucinations, Allergy/Immunology: Negative for hives, rash, and allergies, Endocrine: Negative for neck swelling, polydipsia, polyuria, polyphagia, and marked weight changes, Hematologic/Lymphatic: Negative for swollen nodes, abnormal bleeding, and unusual bruising. 10:28 MS/extremity: Positive for injury or acute deformity, decreased range of motion, pain, of the right hip, right gluteal fold, right inner thigh and right upper thigh. Exam: 10:28 Constitutional: This is a well developed, well nourished patient who is awake, alert, gilberto and in no acute distress. Head/Face: Normocephalic, atraumatic. Eyes: Pupils equal round and reactive to light, extra-ocular motions intact. Lids and lashes normal. Conjunctiva and sclera are non-icteric and not injected. Cornea within normal limits. Periorbital areas with no swelling, redness, or edema. ENT: Nares patent. No nasal discharge, no septal abnormalities noted. Tympanic membranes are normal and external auditory canals are clear. Oropharynx with no redness, swelling, or masses, exudates, or evidence of obstruction, uvula midline. Mucous membranes moist. Neck: Trachea midline, no thyromegaly or masses palpated, and no cervical lymphadenopathy. Supple, full range of motion without nuchal rigidity, or vertebral point tenderness. No Meningismus. Chest/axilla: Normal chest wall appearance and motion. Nontender with no deformity. No lesions are appreciated. Cardiovascular: Regular rate and rhythm with a normal S1 and S2. No gallops, murmurs, or rubs. Normal PMI, no JVD. No pulse deficits. Respiratory: Lungs have equal breath sounds bilaterally, clear to auscultation and percussion. No rales, rhonchi or wheezes noted. No increased work of breathing, no retractions or nasal flaring. Abdomen/GI: Soft, non-tender, with normal bowel sounds. No distension or tympany. No guarding or rebound. No evidence of tenderness throughout. Back: No spinal tenderness. No costovertebral tenderness. Full range of motion. Skin: Warm, dry with normal turgor. Normal color with no rashes, no lesions, and no evidence of cellulitis. MS/ Extremity: Pulses equal, no cyanosis. Neurovascular intact. Full, normal range of motion. Neuro: Awake and alert, GCS 15, oriented to person, place, time, and situation. Cranial nerves II-XII grossly intact. Motor strength 5/5 in all extremities. Sensory grossly intact. Cerebellar exam normal. Normal gait. Psych: Awake, alert, with orientation to person, place and time. Behavior, mood, and affect are within normal limits. 10:28 Musculoskeletal/extremity: ROM: limited active range of motion due to pain, limited passive range of motion due to pain, Circulation is intact in all extremities. Sensation intact. Compartment Syndrome exam of affected extremity: is normal. Weight bearing: is unable to bear weight, DVT Exam: negative Homans' sign noted on exam, no appreciated bluish discoloration, no erythema, no increased warmth, pain, swelling, tenderness. 10:39 ECG was reviewed by the Attending Physician. gilberto Vital Signs: 09:15 BP 202 / 66; Pulse 64; Resp 18; Temp 98.2; Pulse Ox 100% ; Weight 77.56 kg; Height 5 ap3 ft. 4 in. (162.56 cm); 09:30 BP 201 / 72; Pulse 64; Resp 18; Pulse Ox 100% on R/A; eh3 10:30 BP 174 / 97; Pulse 60; Resp 18; Pulse Ox 100% on R/A; eh3 11:30 BP 185 / 76; Pulse 61; Resp 18; Pulse Ox 100% on R/A; eh3 13:00 BP 177 / 69; Pulse 58; Resp 12; Pulse Ox 99% on R/A; eh3 14:00 BP 183 / 66; Pulse 64; Pulse Ox 98% on R/A; eh3 14:30 BP 174 / 72; Pulse 64; Resp 13; Pulse Ox 100% on R/A; eh3 09:15 Body Mass Index 29.35 (77.56 kg, 162.56 cm) ap3 Procedures: 11:30 Central Line: the site was prepped with Betadine, in sterile fashion, Peripheral line: gilberto by aseptic technique a peripheral line was placed in the left external jugular vein. MDM: 09:22 Patient medically screened. gilberto 10:34 Differential diagnosis: closed fracture, contusion, abrasion, tendonitis. Data gilberto reviewed: vital signs, nurses notes, EMS record, lab test result(s), EKG, radiologic studies, CT scan, plain films. Data interpreted: radiation monitor: rate is 64 beats/min, rhythm is regular, Pulse oximetry: on room air is 100 %. Test interpretation: by ED physician or midlevel provider: ECG, plain radiologic studies. Counseling: I had a detailed discussion with the patient and/or guardian regarding: the historical points, exam findings, and any diagnostic results supporting the discharge/admit diagnosis, the presence of at least one elevated blood pressure reading (>120/80) during this emergency department visit, lab results, radiology results, the need for further work-up and treatment in the hospital. 05/18 09:21 Order name: Basic Metabolic Panel; Complete Time: 12:41 [facility] 05/18 09:21 Order name: CBC with Diff; Complete Time: 13:52 [facility] 05/18 09:21 Order name: Type And Screen [facility] 05/18 09:21 Order name: LFT's; Complete Time: 12:41 [facility] 05/18 10:27 Order name: Magnesium; Complete Time: 12:41 [facility] 05/18 10:27 Order name: NT PRO-BNP; Complete Time: 12:41 [facility] 05/18 09:21 Order name: CT Traumagram (Head C Spine CAP W Con) [facility] 05/18 10:27 Order name: PT-INR; Complete Time: 12:41 [facility] 05/18 10:27 Order name: Troponin HS; Complete Time: 12:41 [facility] 05/18 11:07 Order name: SARS-COV-2 Antigen Rapid; Complete Time: 12:41 bd 05/18 12:02 Order name: Urine Dipstick-Ancillary; Complete Time: 12:41 EDMS 05/18 12:42 Order name: Phosphorus [facility] 05/18 12:59 Order name: Phosphorus; Complete Time: 13:52 EDND 05/18 13:31 Order name: CBC Smear Scan; Complete Time: 13:52 [facility] 05/18 09:21 Order name: Pelvis XRAY; Complete Time: 11:31 [facility] 05/18 10:18 Order name: Hip Right 2 View XRAY; Complete Time: 11:31 [facility] 05/18 10:27 Order name: XRAY Chest (1 view); Complete Time: 11:31 [facility] 05/18 10:27 Order name: EKG; Complete Time: 10:28 [facility] 05/18 10:52 Order name: Foot Right 2 View; Complete Time: 11:31 EDND 05/18 12:40 Order name: CT; Complete Time: 12:41 [facility] 05/18 09:21 Order name: Labs collected and sent; Complete Time: 11:34 [facility] 05/18 09:21 Order name: Ice pack; Complete Time: 12:38 [facility] 05/18 09:21 Order name: Urine Dipstick-Ancillary (obtain specimen); Complete Time: 12:38 [facility] 05/18 10:27 Order name: Cardiac monitoring; Complete Time: 11:33 [facility] 05/18 10:27 Order name: EKG - Nurse/Tech; Complete Time: 11:00 [facility] 05/18 10:27 Order name: IV Saline Lock; Complete Time: 12:38 [facility] 05/18 10:27 Order name: O2 Per Protocol; Complete Time: 11:00 [facility] 05/18 10:27 Order name: O2 Sat Monitoring; Complete Time: 11:00 [facility] 05/18 10:42 Order name: Labs - recollect needed: recollect all tubes; Complete Time: 11:33 bd 05/18 11:21 Order name: Labs - recollect needed: recollect all tubes again; Complete Time: 11:33 bd EC:39 Rate is 59 beats/min. Rhythm is regular. QRS [place] is Normal. RI interval is normal. QRS gilberto interval is normal. QT interval is normal. No Q waves. T waves are Normal. No ST changes noted. Clinical impression: NSR w/ Non-specific ST/T Changes and No evidence of ischemia. Interpreted by me. Reviewed by me. Administered Medications: 12:43 Discontinued: NS 0.9% 1000 ml IV at 125 ml/hr continuous gilberto 11:28 Drug: NS 0.9% 1000 ml Route: IV; Rate: 125 ml/hr; Site: left jugular; vg1 14:20 Follow up: Response: No adverse reaction eh3 11:30 Drug: Solu-CORTEF (hyrdoCORTISONE) 100 mg Route: IVP; Site: left jugular; vg1 12:30 Follow up: Response: No adverse reaction eh3 11:43 Drug: morphine 4 mg Route: IVP; Infused Over: 4 mins; Site: left jugular; ap3 13:15 Follow up: Response: Pain is unchanged, physician notified eh3 11:43 Drug: Zofran (Ondansetron) 4 mg Route: IVP; Site: left jugular; ap3 13:15 Follow up: Response: No adverse reaction eh3 14:12 Drug: Potassium Effervescent Tablet 50 mEq Route: PO; eh3 14:20 Follow up: Response: No adverse reaction eh3 14:12 Drug: morphine 4 mg Route: IVP; Infused Over: 4 mins; Site: left upper arm; eh3 14:40 Follow up: Response: Pain is decreased eh3 Disposition Summary: 05/18/22 10:37 Hospitalization Ordered Hospitalization Status: Inpatient Admission gilberto Location: Telemetry/MedSurg (Inpatient) gilberto Condition: Fair gilberto Problem: new gilberto Symptoms: have improved gilberto Bed/Room Type: Standard gilberto Provider: Prince Lavinia(05/18/22 10:43) gilberto Room Assignment: 203(05/18/22 13:40) Diagnosis - Fall on same level, unspecified gilberto - Intertrochanteric fracture of femur - right gilberto - Edema, unspecified gilberto - Hypokalemia gilberto - Hypomagnesemia gilberto Forms: - Medication Reconciliation Form gilberto - SBAR form gilberto Signatures: Dispatcher [employer] EDMS Caren Hester Diana, RN RN Jose Elias Gifford MD MD cha Prokisch, Amanda RN RN ap3 Mayi Mercado RN RN vg1 Tiesha Elliott RN RN eh3 Corrections: (The following items were deleted from the chart) 10:43 10:37 Vahe Fagan cha gilberto 10:52 09:23 Foot Right 3 View+RAD.RAD.BRZ ordered. EDMS EDMS 12:38 10:27 Taylor ordered. gilberto ld1 13:38 10:37 gilberto dw 13:40 13:38 417 dw dw
--- NOTE | 2022-05-18 10:38 | ER ---
Nurse's Notes [facility] Name: Emelia Payan Age: 81 yrs Sex: Female : 1940 Arrival Date: 05/18/2022 Time: 09:15 Bed 8 Private MD: Diagnosis: Fall on same level, unspecified;Intertrochanteric fracture of femur-right;Edema, unspecified;Hypokalemia;Hypomagnesemia Presentation: 05/18 09:15 Chief complaint: EMS states: patient was walking with her walker when she got tripped ap3 up on her rug, and fell. Patient denies hitting her head or LOC. Patient complains of pain to her back, hips and right foot. Coronavirus screen: At this time, the client does not indicate any symptoms associated with coronavirus-19. Ebola Screen: No symptoms or risks identified at this time. Initial Sepsis Screen: Does the patient meet any 2 criteria? No. Patient's initial sepsis screen is negative. Does the patient have a suspected source of infection? No. Patient's initial sepsis screen is negative. Risk Assessment: Do you want to hurt yourself or someone else? Patient reports no desire to harm self or others. Onset of symptoms was May 18, 2022. 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 Mechanism of Injury: Fall from standing position. 09:15 Method Of Arrival: EMS: [facility] ap3 09:15 Acuity: EDIS 3 ap3 Triage Assessment: 09:26 General: Appears uncomfortable, Behavior is calm, cooperative. Pain: Complains of pain ap3 in back, left hip, right hip and right foot Pain began suddenly. Neuro: Level of Consciousness is awake, alert, obeys commands, Oriented to person, place, time, situation. Cardiovascular: Patient's skin is warm and dry. Respiratory: Airway is patent Respiratory effort is even, unlabored, Respiratory pattern is regular, symmetrical. Historical: - Allergies: 09:18 Bactrim; ap3 09:18 Cipro; ap3 09:18 Xarelto; ap3 09:18 Zosyn; ap3 - Home Meds: 09:18 atorvastatin 20 mg oral tab [Active]; amlodipine 5 mg tab 2 tabs once daily [Active]; ap3 clonazepam 0.5 mg Oral tab 1 tab as needed [Active]; zinc sulfate 50 mg zinc (220 mg) Oral tab daily [Active]; glipizide 2.5 mg Oral tr24 1 tabs once daily [Active]; - PMHx: 09:18 adrenal insuficiency; Anxiety; Atrial Fib; CHF; CVA; Diabetes - IDDM; DVT; ap3 Hyperlipidemia; Hypertension; Hypothyroidism; L groin blood clot; lymphedema; Pancreatitis; - PSHx: 09:18 filter; ap3 - Immunization history:: Client reports receiving the 2nd dose of the Covid vaccine. - Social history:: Smoking status: Patient denies any tobacco usage or history of. - Family history:: not pertinent. Screenin:26 Abuse screen: Denies threats or abuse. Nutritional screening: No deficits noted. ap3 Tuberculosis screening: No symptoms or risk factors identified. Fall Risk Fall in past 12 months (25 points). Secondary diagnosis (15 points) impaired mobility, IV access (20 points). Ambulatory Aid- Crutches/Cane/Walker (15 pts). Gait- Weak (10 pts.). Mental Status- Oriented to own ability (0 pts). Total Dickens Fall Scale indicates High Risk Score (45 or more points). Fall prevention measures have been instituted. Side Rails Up X 2 Placed Close to Nursing Station Frequent Obs/Assessments Occuring Family Present and informed to notify staff if the need to leave the bedside As available patient and family educated on Fall Prevention Program and Strategies. Assessment: 09:26 Reassessment: Pt stated she is unsure if she is able to use bedpan, pure wick applied. tp1 12:58 Pain: Complains of pain in right leg and right hip. Neuro: Level of Consciousness is eh3 awake, alert, obeys commands, Oriented to person, place, time, situation. Cardiovascular: Capillary refill < 3 seconds Patient's skin is warm and dry. Respiratory: Airway is patent Respiratory effort is even, unlabored. 12:58 Reassessment: Patient and/or family updated on plan of care and expected duration. Pain eh3 level reassessed. Patient is alert, oriented x 3, equal unlabored respirations, skin warm/dry/pink. 14:00 Reassessment: Patient and/or family updated on plan of care and expected duration. Pain eh3 level reassessed. Patient is alert, oriented x 3, equal unlabored respirations, skin warm/dry/pink. Vital Signs: 09:15 BP 202 / 66; Pulse 64; Resp 18; Temp 98.2; Pulse Ox 100% ; Weight 77.56 kg; Height 5 ap3 ft. 4 in. (162.56 cm); 09:30 BP 201 / 72; Pulse 64; Resp 18; Pulse Ox 100% on R/A; eh3 10:30 BP 174 / 97; Pulse 60; Resp 18; Pulse Ox 100% on R/A; eh3 11:30 BP 185 / 76; Pulse 61; Resp 18; Pulse Ox 100% on R/A; eh3 13:00 BP 177 / 69; Pulse 58; Resp 12; Pulse Ox 99% on R/A; eh3 14:00 BP 183 / 66; Pulse 64; Pulse Ox 98% on R/A; eh3 14:30 BP 174 / 72; Pulse 64; Resp 13; Pulse Ox 100% on R/A; eh3 09:15 Body Mass Index 29.35 (77.56 kg, 162.56 cm) ap3 ED Course: 09:15 Patient arrived in ED. ap3 09:18 Triage completed. ap3 09:22 Jose Elias Marquez MD is Attending Physician. gilberto 09:27 Arm band placed on right wrist. ap3 10:36 Vahe Fagan MD is Hospitalizing Provider. gilberto 10:42 Hospitalizing Provider role handed off by Vahe Fagan MD gilberto 10:42 Prince Kate MD is Hospitalizing Provider. gilberto 10:46 Pelvis XRAY In Process Unspecified. EDMS 10:46 Hip Right 2 View XRAY In Process Unspecified. EDMS 10:46 XRAY Chest (1 view) In Process Unspecified. EDMS 10:52 Foot Right 2 View In Process Unspecified. EDMS 12:20 Tiesha Elliott, ODILON is Primary Nurse. eh3 12:24 Notified ED physician of a critical lab result(s). K - 2.8 - Ca 6.9. ld1 12:24 Patient has correct armband on for positive identification. Bed in low position. Call eh3 light in reach. Side rails up X2. 12:24 No provider procedures requiring assistance completed. eh3 12:25 Notified ED physician of. ld1 12:25 Notified ED physician of. ld1 12:58 Client placed on continuous cardiac and pulse oximetry monitoring. NIBP monitoring eh3 applied. Door closed. Noise minimized. Lights dimmed. Warm blanket given. 13:45 Accessed peripheral vein via ultrasound, utilizing dynamic ultrasound technique using jd3 20G Nexia IV catheter ,sterile technique, per hospital protocol. Clean \T\ dry. Dressing intact. Good blood return. Flushes easily. 14:38 Patient admitted, IV remains in place. eh3 Administered Medications: 12:43 Discontinued: NS 0.9% 1000 ml IV at 125 ml/hr continuous gilberto 11:28 Drug: NS 0.9% 1000 ml Route: IV; Rate: 125 ml/hr; Site: left jugular; vg1 14:20 Follow up: Response: No adverse reaction 3 11:30 Drug: Solu-CORTEF (hyrdoCORTISONE) 100 mg Route: IVP; Site: left jugular; vg1 12:30 Follow up: Response: No adverse reaction 3 11:43 Drug: morphine 4 mg Route: IVP; Infused Over: 4 mins; Site: left jugular; ap3 13:15 Follow up: Response: Pain is unchanged, physician notified 3 11:43 Drug: Zofran (Ondansetron) 4 mg Route: IVP; Site: left jugular; ap3 13:15 Follow up: Response: No adverse reaction 3 14:12 Drug: Potassium Effervescent Tablet 50 mEq Route: PO; eh3 14:20 Follow up: Response: No adverse reaction 3 14:12 Drug: morphine 4 mg Route: IVP; Infused Over: 4 mins; Site: left upper arm; eh3 14:40 Follow up: Response: Pain is decreased 3 Medication: 12:24 VIS not applicable for this client. 3 Outcome: 10:37 Decision to Hospitalize by Provider. [facility] 14:38 Admitted to Med/surg accompanied by tech, via stretcher, room 203, Report called to 3 Sravani Carbone RN 14:38 Condition: stable 14:38 Instructed on the need for admit. 14:40 Patient left the ED. 3 Signatures: Dispatcher [employer] EDPA Jose Elias Marquez MD MD cha Davies, Jonathon, RN RN Mallory Shah RN RN ap3 Mayi Mercado RN RN vg1 Susana Sorto, RN RN ld1 Magda Potts, RN RN tp1 Tiesha Elliott, RN RN eh3 Corrections: (The following items were deleted from the chart) 10:52 10:46 In radiology for Foot Right 3 View+RAD.RAD.BRZ. EDMS EDMS
--- NOTE | 2022-05-18 10:51 | RAD REPORT ---
EXAM DESCRIPTION: RAD - Pelvis - 05/18/2022 10:43 am CLINICAL HISTORY: PAIN, fall COMPARISON: <Comparisons>pelvis 09/10/2021 TECHNIQUE: AP imaging of the pelvis was obtained. FINDINGS: Patient is rotated. Positioning is not optimal. The foreshortening of the right superior a nd inferior pubic rami limits evaluation. No gross pelvic fracture deformity seen. SI joint moderate severity degenerative changes are present. No pathologic bone process. Prominent lower lumbar degener ative change present but only partially imaged. Prominent left hip joint degenerative change present. No acute left hip joint finding. No identifiabl e changes from September. Proximal right femur fracture changes are present poorly visualized. Findings are further detailed an d right hip report. IMPRESSION: Limited pelvis examination with no acute finding of the bony pelvis.
--- NOTE | 2022-05-18 10:53 | RAD REPORT ---
EXAM DESCRIPTION: RAD - Hip Right 2 View - 05/18/2022 10:43 am CLINICAL HISTORY: PAIN COMPARISON: Hip Right 2 View dated 10/27/2014 FINDINGS: Multiple AP and cross-table lateral views were obtained. Positioning is far from optimal limiting overall evaluation. Proximal right femur fracture is present . There is an oblique fracture line present through the intertrochanteric region. This appears to ext end from the medial inferior margin of the intertrochanteric region superiorly to the lateral femoral neck. No dislocation of the femoral head. Femoral head generally maintains smooth rounded contour. A VN of the right femoral head is not suspected. There is moderate severity degenerative change at the hip joint. No suspicious soft tissue finding. IMPRESSION: Proximal right femur fracture is present. This is poorly visualized due to positioning l imitations. Prior to surgical intervention, CT imaging may be needed for better detail.
--- NOTE | 2022-05-18 10:55 | RAD REPORT ---
EXAM DESCRIPTION: RAD - Foot Right 3 View - 05/18/2022 10:43 am CLINICAL HISTORY: PAIN COMPARISON: Foot Right 2 View dated 10/12/2014 FINDINGS: Two view right foot examination shows prominent soft tissue edema around the foot. There i s a large plantar spur with small spurring at the Achilles attachment. Bones are osteopenic. No patho logic bone process identifiable. IP joint and MTP joint degenerative changes are present. Base of the second proximal phalanx is not optimally visualized due to positioning. No gross fracture deformity of the metatarsals or tarsal bones. No air or foreign body in the soft tissues. IMPRESSION: Prominent soft tissue swelling around the foot with no air or foreign body seen. Osteopenic and degenerative bony changes are present but no acute bone finding can be confirmed.
--- NOTE | 2022-05-18 10:56 | RAD REPORT ---
EXAM DESCRIPTION: RAD - Chest Single View - 05/18/2022 10:43 am CLINICAL HISTORY: COUGH, preop examination, right hip fracture COMPARISON: Portable chest 09/10/2021 TECHNIQUE: AP portable chest image was obtained 05/18/2022 10:43 am . FINDINGS: No acute lung parenchymal finding seen. Chronic interstitial pattern matches comparison. A few scattered granulomas are seen. Heart and vasculature are normal. No measurable pleural effusion and no pneumothorax. No acute bony abnormality seen. No acute aortic findings suspected. IMPRESSION: No acute cardiopulmonary process. No significant change from September 2021.
--- NOTE | 2022-05-18 11:10 | P.HP ---
Certification for Inpatient Patient admitted to: Inpatient With expected LOS: >2 Midnights Practitioner: I am a practitioner with admitting privileges, knowledge of patient current condition, hospital course, and medical plan of care. Services: Services provided to patient in accordance with Admission requirements found in Title 42 Section 412.3 of the Code of Federal Regulations Patient History Date of Service: 05/18/22 Reason for admission: Hip fracture History of Present Illness: Patient is a 81-year-old female with a known past medical history of atrial fibrillation, hypertension and hypothyroidism. She presented to the ER after a ground-level fall that resulted in right hip fracture. Patient usually ambulates with a walker and was in the process of going to the front porch of her house. She fell backwards and landed on her buttocks. There was no head trauma or loss of consciousness. Patient denies being on any anticoagulation at this time. Work-up in the ER revealed evidence of a hip fracture. Orthopedic surgery has been consulted. Patient has been relatively healthy. The last time she was admitted was more than 6 months ago when she was seen for lower extremity cellulitis. Otherwise, she has been in her usual state of health until the above incident. Allergies ciprofloxacin [From Cipro] Allergy (Verified 12/11/21 13:09) Rash rivaroxaban [From Xarelto] Allergy (Verified 12/11/21 13:09) Excessive Bleeding Milk Containing Products Adverse Reaction (Verified 12/11/21 13:09) Diarrhea piperacillin [From Zosyn] Adverse Reaction (Verified 12/11/21 13:09) Hives/Rash tazobactam [From Zosyn] Adverse Reaction (Verified 12/11/21 13:09) Hives/Rash Home Medications: Amlodipine Besylate 5 mg PO DAILY 12/11/21 Amoxicillin [Amoxil] 875 mg PO DAILY 12/11/21 Ascorbic Acid [Vitamin C] 500 mg PO DAILY 12/11/21 Atorvastatin Calcium [Lipitor] 20 mg PO BEDTIME 12/11/21 Diphenhydramine [Benadryl Tab/Cap] 25 mg PO BEDTIME 12/11/21 Famotidine [Pepcid] 20 mg PO BEDTIME 12/11/21 Glipizide [Glipizide Xl] 2.5 mg PO DAILY 12/11/21 Hydrocortisone [Cortef] 20 mg PO BID 12/11/21 Levothyroxine [Synthroid] 112 mcg PO [id number] 12/11/21 Liothyronine Sodium [Cytomel] 5 mcg PO T,TH,S 12/11/21 Omeprazole 20 mg PO DAILY 12/11/21 Pen Injector Device [Humatropen] 0.2 mg SQ DAILY 12/11/21 Sotalol HCl [Sotalol] 160 mg PO DAILY 12/11/21 Vitamin B Complex [B-Complex Vitamin] 1 cap PO DAILY 12/11/21 Zinc 50 mg PO DAILY 12/11/21 clonazePAM [Klonopin] 0.5 mg PO TIDP PRN 12/11/21 traMADol HCL [Ultram] 50 mg PO TID PRN 12/11/21 - Past Medical/Surgical History Diabetic: Yes -: Diabetes mellitus type 2 non-insulin dependent -: History CVA 2012 -: HTN -: Anxiety -: History of pituitary gland removal -: GERD with history of GI bleed -: Hypothyroidism -: Chronic anti coagulation with Eliquis -: History atrial fibrillation -: Chronic steroids -: Adrenal insufficiency -: Hyperlipidemia -: hysterectomy -: bradley carpal tunnel sx -: L lumpectomy -: brain tumor removed- benign -: pituitary gland removal -: appendectomy Psychosocial/ Personal History: The patient is . She has 5 children. She does not work. - Family History Mother -: Heart disease, Hypertension Notes: of heart attack Father -: Heart disease Notes: of heart attack - Social History Alcohol use: No CD- Drugs: No Caffeine use: Yes Physical Examination - Physical Exam General: In no apparent distress, Cooperative, Other (Slightly frail) HEENT: Atraumatic, Normocephalic Respiratory: Clear to auscultation bilaterally, Normal air movement Cardiovascular: Regular rate/rhythm, Normal S1 S2, No murmurs Musculoskeletal: Swelling, Other (Bilateral lower extremity edema) Neurological: Normal speech Assessment and Plan - Problems (Diagnosis) (1) Bilateral lower extremity edema Current Visit: Yes Status: Acute (2) Fall from ground level Current Visit: Yes Status: Acute (3) Closed right hip fracture Current Visit: Yes Status: Acute (4) Paroxysmal atrial fibrillation Onset Date: 02/09/16 Current Visit: No Status: Acute (5) CHF (congestive heart failure) Current Visit: No Status: Chronic Qualifiers: (6) Diabetes mellitus type II, non insulin dependent Onset Date: 01/20/16 Current Visit: No Status: Chronic (7) Hyperlipidemia Onset Date: 01/20/16 Current Visit: No Status: Chronic Qualifiers: (8) Hypertension Onset Date: 01/20/16 Current Visit: No Status: Chronic Qualifiers: - Plan Assessment Patient is a 81-year-old female who is being admitted following a ground-level fall that resulted in right proximal femur fracture. She is alert and awake in the ER. Her pain is still uncontrolled. Hypertensive with SBP in 170s. Patient has evidence of bilateral lower extremity edema Right proximal femur fracture Ground-level fall Paroxysmal atrial fibrillation Congestive heart failure Hypertension Plan: We will admit to the hospital on telemetry Orthopedic surgery has been consulted by ER Her last echo from April 2021 showed a mild mitral regurgitation Other than the lower extremity edema, she has no shortness of breath and is satting well on room air Will proceed with pain control Controlling her blood pressure Her hospital course will take 2-3 midnights - Advance Directives Does patient have a Living Will: Yes Does patient have a Durable POA for Healthcare: Yes
[2022-05-18 11:14] LABS: Absolute Lymphocytes (CBC) 1.2 K/uL (0.7-4.9); Hematocrit 38.3 % (36.0-45.0); Lymphocytes % 17.2 % (15.3-44.8); MCV 89.7 fL (80-100); MPV 8.7 fL (7.6-11.3); RBC Red Blood Cell Count 4.27 M/uL (3.86-4.86)
[2022-05-18] MEDS ORDERED: HYDROCORTISONE SUC 100 MG INJ ONE ×2 (11:31→11:47)
[2022-05-18] MEDS ORDERED: NA CHLORIDE 0.9% 1,000 ML ONE ×2 (11:32→11:48)
[2022-05-18] MEDS ORDERED: MORPHINE 4 MG/ML SYR ONE ×2 (11:47→14:14)
[2022-05-18] MEDS ORDERED: ONDANSETRON 4 MG/2 ML VIAL ONE (11:48)
[2022-05-18 12:02] LABS: Urine Blood Trace-intact (Negative); Urine Glucose Negative (Negative); Urine Protein Negative (Negative)
[2022-05-18 12:11] LABS: SARS-CoV-2 Antigen Rapid Res Negative (Negative)
[2022-05-18 12:17] LABS: Magnesium 1.5 mg/dL (1.8-2.4); Troponin High Sensitivity 12.3 pg/mL (<58.9)
[2022-05-18 12:21] LABS: Albumin 2.4 g/dL (3.4-5.0); Bilirubin Direct 0.1 mg/dL (0-0.2); Bilirubin Total 0.5 mg/dL (0.2-1.0); Protein, Total 5.1 g/dL (6.4-8.2)
[2022-05-18 12:23] LABS: Potassium 2.8 mmol/L (3.5-5.1)
[2022-05-18 12:31] LABS: Protime INR 1.12
--- NOTE | 2022-05-18 12:40 | RAD REPORT ---
EXAM DESCRIPTION: CT - Head C Spine Cap Wo Con - 05/18/2022 12:03 pm CLINICAL HISTORY: fall COMPARISON: Spine Lumbar Wo Con dated 09/10/2021; Abdomen Pelvis W Contrast dated 08/07/2021 TECHNIQUE: Axial [address] head images were obtained. Axial [address] cervical spine images were obtain ed with sagittal and coronal reconstruction images reviewed. Axial 5 mm images of the chest, abdomen and pelvis were obtained. All CT scans are performed using dose optimization technique as appropriate and may include automated exposure control or mA/KV adjustment according to patient size. FINDINGS: No intracranial hemorrhage, mass or edema. No midline shift or abnormal fluid collection. Pyki-rs-ocamwrll primarily frontal lobe atrophy pattern is present. Ventricles are in proportion to a ny volume loss. Chronic ischemic changes minimal for age. An 11 millimeter densely calcified mass marcos ng the inner table lateral right frontal bone is probably a small incidental meningioma. No skull fra cture is present. No acute mastoid air cell finding. Chronic sphenoid and ethmoid air cell sinusitis with mucosal thickening along the floor of the left maxillary sinus. Cervical bodies are normal in height. There is anterior subluxation of C3 on C4 and C4 on C5. All dis c levels except C2-3 show significant loss in height.No pathologic bone changes identifiable.Prominen t disc bulge and endplate spurring changes at C3-4 result in significant spinal stenosis approximatel y 7 mm. Moderate severity bilateral foraminal stenosis at this level. Spinal stenosis of 7 mm present at C4-5 with severe right foraminal stenosis. Advanced facet joint degenerative changes are present. There is 8 mm spinal stenosis at C5-6 with moderate left-side and severe right-sided foraminal steno sis. No prevertebral soft tissue thickening or paraspinal mass.Central canal detail is inherently villafuerte ited on CT imaging. CT chest shows no pneumothorax, pulmonary contusion or pleural fluid collection. Small bulla is prese nt at the right lung base. Calcified granuloma is present mid right lung field. No mediastinal hemato ma and the aorta and pulmonary arteries are unremarkable. No chest will mass or abnormal axillary fin ding. No displaced rib fracture or other significant bony finding. CT abdomen and pelvis show no injury to solid abdominal viscera. Gallbladder and biliary tree are unr emarkable. No bowel injury or significant finding. No free air, free fluid or abnormal stranding. No hernia, mass or bulky lymphadenopathy. No urinary bladder abnormality. IVC filter is in place. Advanced degenerative changes are present in the lumbar spine with prior L3 and L4 vertebroplasty. An acute finding of the lumbar vertebrae is not seen. There is multilevel central spinal stenosis most notable at L4-5. Prominent left hip degenerative change present with no acute finding. Sacral ala are intact. No acute femoral head finding. Fracture of the right femur is present. Fracture involves the base the neck in traverses through the intertrochanteric region to the subtrochanteric proximal femur. There is impaction along the posterior aspect of the femoral neck. A pathologic component is not seen. Cont usion and edema changes are present in the soft tissues. There is a large hematoma in the medial righ t thigh approximately 6 cm in diameter. This is not fully assessed and extends below the field of vie w of this examination. IMPRESSION: No hemorrhage, edema or acute CT Head finding. Chronic changes are detailed in the body of the report. Advanced cervical spine degenerative changes are present with multilevel significant spinal stenosis. An acute cervical spine finding is not seen. No significant CT Chest finding. No acute finding to the soft tissues of the abdomen and pelvis. Prominent lumbar spine degenerative c hanges are present. No fracture of the bony pelvis seen. Right femur fracture involving the neck, intertrochanteric and proximal most subtrochanteric femur. N o pathologic bone process seen. Large hematoma in the medial thigh not fully assessed on this study.
[2022-05-18] MEDS ORDERED: POTASSIUM 25 MEQ EFFERV TAB ONE (13:18)
[2022-05-18] MEDS ORDERED: NS KCL 20MEQ 1,000 ML IV ONE (13:18)
[2022-05-18] MEDS ORDERED: KCL 20 MEQ/100 mL IVPB 100 ML IV ONE (13:18)
[2022-05-18] MEDS ORDERED: Magnesium Sulfate 2gm IVPB 2 G/50 ML BAG IV ONE ×2 (13:19→16:00)
[2022-05-18 13:30] LABS: White Blood Cell Scan OK (OK)
[2022-05-18 13:31] LABS: Anisocytosis 1+; Blood Morphology Comment NOTED (NOT SEEN); Platelet Estimate DECR
[2022-05-18] MEDS ORDERED: POTASSIUM CL SA 10 MEQ TAB PO ONE (16:00)
[2022-05-18] MEDS ORDERED: POTASSIUM CL 40 MEQ in NA CHLORIDE 0.9% 500 ML IV SCH (16:00)
[2022-05-18] MEDS ORDERED: ENOXAPARIN 40 MG/0.4 ML SQ SCH (17:00)
[2022-05-18] MEDS: HYDROMORPHONE HCL 1 MG/ML INJ IV PRN ×2 (17:50→21:57)
[2022-05-18] MEDS: HYDRALAZINE HCL 20 MG/ML VIAL IV PRN (18:41)
[2022-05-19] MEDS: HYDROMORPHONE HCL 1 MG/ML INJ IV PRN ×4 (03:12→23:55)
[2022-05-19] MEDS ORDERED: HYDROMORPHONE HCL 0.5 MG/0.5 ML INJ IV ONE (05:48)
[2022-05-19 09:24] LABS: Magnesium 2.2 mg/dL (1.8-2.4); Phosphorus 3.3 mg/dL (2.5-4.9); Potassium 4.2 mmol/L (3.5-5.1)
[2022-05-19] MEDS ORDERED: LOSARTAN POTASSIUM 50 MG TABLET PO SCH (10:24)
[2022-05-19] MEDS ORDERED: AMLODIPINE 5 MG TAB PO SCH (10:24)
--- NOTE | 2022-05-19 10:24 | P.PN ---
Subjective Date of Service: 05/19/22 Chief Complaint: Hip fracture Subjective: No new changes (Patient is n.p.o. for hip repair today. No acute events overnight except for mild pain. She is doing well on current pain regimen.) Physical Examination - Vital Signs Temperature: 97 F Blood Pressure: 150/67 Pulse: 83 Respirations: 16 Pulse Ox (%): 96 - Physical Exam General: Alert, In no apparent distress, Cooperative HEENT: Atraumatic, Normocephalic Respiratory: Clear to auscultation bilaterally, Normal air movement Cardiovascular: Regular rate/rhythm, Normal S1 S2 Musculoskeletal: Other (Right hip tender to palpation) Neurological: Normal speech, Cranial nerves 3-12 intact - Studies Laboratory Data (last 24 hrs) 05/18/22 10:44: WBC 6.80, Hgb 12.9, Hct 38.3, Plt Count 90 L Assessment And Plan - Current Problems (Diagnosis) (1) Bilateral lower extremity edema Current Visit: Yes Status: Acute (2) Fall from ground level Current Visit: Yes Status: Acute (3) Closed right hip fracture Current Visit: Yes Status: Acute (4) Paroxysmal atrial fibrillation Onset Date: 02/09/16 Current Visit: No Status: Acute (5) CHF (congestive heart failure) Current Visit: No Status: Chronic Qualifiers: (6) Diabetes mellitus type II, non insulin dependent Onset Date: 01/20/16 Current Visit: No Status: Chronic (7) Hyperlipidemia Onset Date: 01/20/16 Current Visit: No Status: Chronic Qualifiers: (8) Hypertension Onset Date: 01/20/16 Current Visit: No Status: Chronic Qualifiers: - Plan Assessment Patient is a 81-year-old female who is being admitted following a ground-level fall that resulted in right proximal femur fracture. She is alert and awake in the ER. Her pain is still uncontrolled. Hypertensive with SBP in 170s. Patient has evidence of bilateral lower extremity edema Right proximal femur fracture Ground-level fall Paroxysmal atrial fibrillation Congestive heart failure Hypertension Plan: Patient is n.p.o. for hip repair today Will continue multimodal pain regimen and DVT prophylaxis Blood pressure rise is most likely a result of uncontrolled pain. We will optimize pain regimen postoperatively Patient will also need physical therapy and Occupational Therapy. Anticipating discharge in 1 to 2 days Her home medications have been reconciled
[2022-05-19] MEDS ORDERED: NA CHLORIDE 0.9% 1,000 ML ONE (10:47)
[2022-05-19] MEDS: LIOTHYRONINE SOD 5 MCG TAB PO SCH (11:00)
[2022-05-19] MEDS ORDERED: LIDOCAINE 1% MPF 5 ML VIAL ONE (11:04)
[2022-05-19] MEDS ORDERED: FENTANYL CITR 100 MCG/2 ML ONE ×2 (11:04→12:35)
[2022-05-19] MEDS ORDERED: propofoL 200 MG/20 ML VIAL IV ONE (11:04)
[2022-05-19] MEDS ORDERED: ONDANSETRON 4 MG/2 ML VIAL ONE (11:06)
[2022-05-19] MEDS ORDERED: TRANEXAMIC ACID 1,000 MG/10 ML VIAL IV ONE (11:46)
[2022-05-19] MEDS ORDERED: CEFAZOLIN 2 GM IN 0.9% NACL 2 GM/100 ML BAG ONE (11:46)
[2022-05-19] MEDS ORDERED: CLINDAMYCIN 600MG/D5W 600 MG/50 ML BAG IV ONE ×2 (12:16→13:00)
[2022-05-19] MEDS ORDERED: KETOROLAC 30 MG/ML INJ ONE (13:25)
--- NOTE | 2022-05-19 13:37 | P.BOP ---
Preoperative diagnosis: complex proximal femur fracture Postoperative diagnosis: same Primary procedure: IR/KETTY fixation proximal femur fracture Anesthesia: General Complications: None Transferred to: Recovery Room Condition: Good
[2022-05-19] MEDS: ONDANSETRON 4 MG/2 ML VIAL ONE ×2 (14:04→14:12)
[2022-05-19] MEDS: MEPERIDINE HCL 25 MG/ML SYR ONE ×2 (14:05→14:13)
[2022-05-19] MEDS: HYDROMORPHONE HCL 1 MG/ML INJ ONE ×2 (14:13→14:35)
[2022-05-19] MEDS: PROMETHAZINE INJ 25 MG/ML AMP ONE ×2 (14:29→14:30)
--- NOTE | 2022-05-19 15:53 | RAD REPORT ---
EXAM DESCRIPTION: - Hip in OR Right 2 View - 05/19/2022 2:44 pm CLINICAL HISTORY: RIGH HIP RODDING COMPARISON: No comparisons FINDINGS/IMPRESSION: Fifteen intraoperative fluoroscopic images were submitted showing placement of an intramedullary maty with cephalomedullary screw in the right femur. Cumulative dose: 38.7 mGy Fluoro time: 2.8 minutes
--- NOTE | 2022-05-19 17:13 | EKG ---
Test Date: 2022-05-18 Test Time: 09:26:40 Die Out Worker: BEATRICE MEASUREMENT RESULTS: Intervals: Rate: 59 DE: 126 QRSD: 72 QT: 446 QTc: 441 [place]: P: 57 DE: 126 QRS: 43 T: 103 INTERPRETIVE STATEMENTS: Sinus bradycardia Septal infarct, age undetermined ST & T wave abnormality, consider lateral ischemia Abnormal ECG Compared to ECG 08/08/2021 02:07:03 Myocardial infarct finding now present Possible ischemia now present Sinus rhythm no longer present Sinus arrhythmia no longer present Left ventricular hypertrophy no longer present ST (T wave) deviation still present Electronically Signed On 05-19-22 17:07:07 CDT by Heladio Diaz
[2022-05-19] MEDS: HYDROCORTISONE 10 MG TAB PO SCH (19:55)
[2022-05-19] MEDS: DIPHENHYDRAMINE 25 MG TAB/CAP PO SCH (19:55)
[2022-05-19] MEDS: ATORVASTATIN 20 MG TAB PO SCH (19:55)
[2022-05-19] MEDS: FAMOTIDINE 20 MG TAB PO SCH (19:55)
[2022-05-19] MEDS: TRAMADOL HCL 50 MG TAB PO PRN (23:24)
--- NOTE | 2022-05-20 01:27 | OP ---
Date of Procedure: 05/19/2022 Surgeon: Cameron Duffy MD Preoperative Diagnosis: Right comminuted complex proximal femur fracture. Postoperative Diagnosis: Right comminuted complex proximal femur fracture. Procedure: Right proximal femur closed reduction with some open reduction and intramedullary fixatio n using the Affix[employer] nail system. Estimated Blood Loss: 150 cc. Complications: There were no complications. Specimen: No pathology specimens sent. Indications For Operation: Ms. Payan is an 81-year-old female who unfortunately fell injuring her r ight hip. She was seen in the emergency department where she was ruled out for other injuries; [facility] er, x-rays demonstrated a complex highly displaced and comminuted proximal femur fracture. She ended up getting a CT scan to help delineate this and it does appear to be quite extensive and comminuted. Risks, benefits, and alternatives of different methods of treating this were discussed with the pat ietennille. She states she understands things as presented and is willing to proceed with closed reduction , open reduction and intramedullary maty fixation. Description Of Procedure: The patient was taken to the operating room and placed in supine position. General anesthesia was obtained by staff. Following this, she was then placed on the fracture tabl e where she was appropriately positioned with all her bony prominences being checked. After this, a reduction maneuver as well as traction was done, which does reapproximate quite a bit better and appe ars very good on AP; however, the lateral reveals that it is still completely displaced. Following t his, the maty is selected and held next to the femur for position of the presumed cephalomedullary scr ew placement. An incision was made carefully through the skin and soft tissues where a finger could be placed into the wound, which allowed for palpation of the fracture site. It did appear that the p roximal fragment is very flexed and rotated and the distal most fragment is very depressed, however, can be reduced quite a bit better using finger pressure as well as manual techniques. Following this , a standard incision was made superior to the greater trochanter. It was taken down carefully throu gh skin and soft tissues and gently through the fascia. Starting hole was actually quite difficult t o achieve because of the comminuted nature of the fracture; however, it did appear that we had a rela tively ideal starting hole. This allowed for placement of the guide pin, which was placed fairly eas alphonse down into the distal fragment. After this, the reduction technique of pressing down on the proxi mal fragment and elevating the distal fragment was used as the impact retail service merchandiser; it was then used near the level of the fracture. After this, the maty was selected. It was then placed to appropriate depth. It does help maintain the reduction somewhat, however, once the manual techniques were released, it does appear to re-displace probably with rotation. It was then held again in a position of reduction as the cephalomedullary screw is drilled and it does distract as the reamer is going through. Howev er, the screw appears to be in ideal position. The screw was then placed at appropriate depth and wi th the use of the compression aspect of the screw, we were able to get a very good reduction. Antiro tation was then placed. It does displace slightly and we do re-compress it slightly as we finish awilda cing the antirotation screw. After this, attention was then turned distally and the distal interlock screw was then placed. After this, the wounds were copiously irrigated and the fascia was closed in a watertight fashion followed by closure of skin with Vicryl and tye. The patient was then awak ened, taken to recovery room in good condition with no complications. /AZIZA Voice ID: [id number] Report ID: [id number]
[2022-05-20] MEDS ORDERED: Ringers Lactate 1,000 ML IV SCH (02:00)
[2022-05-20] MEDS: HYDROMORPHONE HCL 1 MG/ML INJ IV PRN ×5 (04:07→19:28)
[2022-05-20] MEDS: LEVOTHYROXINE SOD 0.112 MG TAB PO SCH (06:05)
--- NOTE | 2022-05-20 07:06 | CON ---
Date of Consultation: 05/18/2022 History Of Present Illness: This is my first time seeing this patient to my knowledge. She is an 81-year-old female who unfortunately fell with an injury to her right hip. She was seen and examined in the emergency department where she was identified as having a right hip comminuted fracture, which was difficult to determine based on its morphology, exactly where it was broken, but definitely was consistent with a hip fracture. She underwent a CT scan which demonstrates that she has a comminuted proximal fracture in the intertrochanteric region which may extend down into the subtrochanteric area. Physical Examination: On physical examination, she does have significant pain related to her right hip. All of her other long bones and joints are palpated without pain or crepitation, although she have some left knee pain, there is an effusion. She has a history of knee pain in the past. No obvious ecchymosis or point of impact. Patella tender but moves as unit. Imaging: Review of x-rays are consistent with a CT scan, which was discussed in the radiology report. Assessment: All risks, benefits, and alternatives to operative intervention have been discussed with the patient. I did discuss the rather complex nature of her hip fracture. She says that she understands things as presented and would like to proceed and at this time will most likely proceed with closed reduction with intramedullary fixation of the right hip, probably on the . All her questions have otherwise been invited and answered and we did discuss all of her concerns. JAVIER Voice ID: [id number] Report ID: [id number] JAMES
[2022-05-20 08:23] LABS: Absolute Lymphocytes (CBC) 0.8 K/uL (0.7-4.9); MCV 91.9 fL (80-100); MPV 8.4 fL (7.6-11.3); RBC Red Blood Cell Count 2.61 M/uL (3.86-4.86)
[2022-05-20 08:29] LABS: Potassium 4.5 mmol/L (3.5-5.1)
--- NOTE | 2022-05-20 08:51 | RAD REPORT ---
EXAM DESCRIPTION: RAD - Knee Left 3 View - 05/20/2022 8:29 am CLINICAL HISTORY: Left knee pain FINDINGS: Mildly displaced fracture medial proximal tibial metaphysis No dislocation Osteoporosis
[2022-05-20 08:56] LABS: Platelet Estimate DECR; White Blood Cell Scan OK (OK)
[2022-05-20 08:57] LABS: Anisocytosis SLIGHT; Basophilic Stippling 1+; Blood Morphology Comment NOTED (NOT SEEN); Ovalocytes 1+; Polychromasia 1+
[2022-05-20] MEDS ORDERED: SOTALOL HCL 80 MG TAB PO SCH (09:00)
[2022-05-20] MEDS ORDERED: HOME MED 1 EA UNK (Omeprazole [Omeprazole] 20 MG Capsule.Dr) PO SCH (09:00)
[2022-05-20] MEDS: VITAMIN B COMPLEX 1 CAP PO SCH (09:09)
[2022-05-20] MEDS: ZINC SULFATE 220 MG CAP PO SCH (09:09)
[2022-05-20] MEDS: LIOTHYRONINE SOD 5 MCG TAB PO SCH (09:09)
[2022-05-20] MEDS: ASCORBIC ACID 500 MG TABLET PO SCH (09:09)
[2022-05-20] MEDS: HYDROCORTISONE 10 MG TAB PO SCH ×2 (09:09→20:48)
[2022-05-20] MEDS: PANTOPRAZOLE 40MG TABLET PO SCH (09:09)
[2022-05-20] MEDS: TRAMADOL HCL 50 MG TAB PO PRN ×2 (10:34→23:31)
[2022-05-20] MEDS: CYCLOBENZAPRINE 10 MG TAB PO SCH ×3 (11:50→20:48)
--- NOTE | 2022-05-20 12:59 | P.PN ---
Subjective Date of Service: 05/20/22 Chief Complaint: Hip fracture Subjective: Other (POD#1 S/P ORIF of R femur fracture. She is having a lot of pain today. She was also found to have a L tibial fracture.) Physical Examination - Vital Signs Temperature: 97.4 F Blood Pressure: 105/49 Pulse: 108 Respirations: 16 Pulse Ox (%): 95 - Physical Exam General: Moderate distress HEENT: Atraumatic, Normocephalic Respiratory: Clear to auscultation bilaterally, Normal air movement Cardiovascular: No edema, Normal pulses, Normal S1 S2, Irregular heart rate/rhythm Gastrointestinal: Soft and benign, Non-distended Musculoskeletal: No swelling, Tenderness, Other (R hip tender to palpation. Left knee tender to palpation) Neurological: Normal speech, Sensation intact, Cranial nerves 3-12 intact Assessment And Plan - Current Problems (Diagnosis) (1) Bilateral lower extremity edema Current Visit: Yes Status: Acute (2) Fall from ground level Current Visit: Yes Status: Acute (3) Closed right hip fracture Current Visit: Yes Status: Acute (4) Paroxysmal atrial fibrillation Onset Date: 02/09/16 Current Visit: No Status: Acute (5) CHF (congestive heart failure) Current Visit: No Status: Chronic Qualifiers: (6) Diabetes mellitus type II, non insulin dependent Onset Date: 01/20/16 Current Visit: No Status: Chronic (7) Hyperlipidemia Onset Date: 01/20/16 Current Visit: No Status: Chronic Qualifiers: (8) Hypertension Onset Date: 01/20/16 Current Visit: No Status: Chronic Qualifiers: - Plan Assessment Patient is a 81-year-old female who is being admitted following a ground-level fall that resulted in right proximal femur fracture. She is POD#1 S/P R open reduction and intramedullary nailing. She was also found to have a L tibial fracture Right proximal femur fracture L medial tibial fracture Acute blood loss anemia-postoperative bleeding Ground-level fall Paroxysmal atrial fibrillation Congestive heart failure Hypotension Plan: She also has a medial tibial fracture of the left lower extremity Case discussed with orthopedic surgery Knee immobilizer for LLE Optimize multi-modal pain regimen Will repeat CBC due to drop in Hb Will hold BP meds (losartan, sotalol and amlodipine) due to mild drop in BP Continue telemetry monitoring due to history of atrial fibrillation Continue physical therapy and Occupational Therapy.
--- NOTE | 2022-05-20 13:37 | RAD REPORT ---
EXAM DESCRIPTION: CT - Lower Ext Wo Con W/ Mpr - 05/20/2022 1:12 pm CLINICAL HISTORY: fx Pain and swelling COMPARISON: Knee Left 3 View dated 05/20/2022 FINDINGS: Moderate osteopenia. Medial tibial plateau fracture is evident with mild depression of 1-2 mm. Moderate lipohemarthrosis. No dislocation seen. All CT scans are performed using dose optimization technique as appropriate and may include automated exposure control or mA/KV adjustment according to patient size. IMPRESSION: Medial tibial plateau fracture as described.
[2022-05-20 17:28] LABS: Absolute Lymphocytes (CBC) 1.4 K/uL (0.7-4.9); Hematocrit 24.9 % (36.0-45.0); Lymphocytes % 16.3 % (15.3-44.8); MCV 92.9 fL (80-100); MPV 8.3 fL (7.6-11.3); RBC Red Blood Cell Count 2.68 M/uL (3.86-4.86)
[2022-05-20] MEDS: ATORVASTATIN 20 MG TAB PO SCH (20:48)
[2022-05-20] MEDS: DIPHENHYDRAMINE 25 MG TAB/CAP PO SCH (20:48)
[2022-05-20] MEDS: FAMOTIDINE 20 MG TAB PO SCH (20:49)
[2022-05-20] MEDS ORDERED: AMIODARONE HCL 150 MG in D5W 100 ML IV STA (21:31)
[2022-05-20] MEDS ORDERED: AMIODARONE HCL 150 MG/3 ML INJ IV ONE (21:46)
[2022-05-20] MEDS ORDERED: AMIODARONE IN DEXTROSE,ISO-OSM 360 MG/200 ML BAG IV ONE (21:47)
[2022-05-20] MEDS ORDERED: D5W 100 ML IV ONE (21:47)
[2022-05-20] MEDS ORDERED: AMIODARONE HCL 900 MG in Dextrose 5%-Water 482 ML IV SCH (22:00)
[2022-05-21] MEDS: HYDROMORPHONE HCL 1 MG/ML INJ IV PRN ×5 (00:59→20:19)
--- NOTE | 2022-05-21 01:02 | P.PN ---
Date of Service: 05/20/22 At 2030 patient went into A. fib RVR, she does have a history of paroxysmal atrial fibrillation but had been in sinus rhythm with frequent PACs prior to this. Her rate increased to the 170s to 180s and her blood pressure was borderline around 100 systolic. Patient not currently on chronic anticoagulation apparently due to previous GI bleed, also had recent surgery and therefore is not a candidate for therapeutic anticoagulation. Patient was started on amiodarone drip given her rapid A. fib and soft blood pressure. She does take sotalol at home which had not been given in a few days as her blood pressure had been running low already. Patient was started on amiodarone drip and transferred to the intensive care unit. She has since converted back to sinus tachycardia with a rate around 110-120. Blood pressure stable. We will continue monitor closely in the ICU for the time being.
[2022-05-21] MEDS ORDERED: AMIODARONE IN DEXTROSE,ISO-OSM 360 MG/200 ML BAG IV ONE (04:21)
--- NOTE | 2022-05-21 05:19 | PN ---
The patient is now postop day 1 from a comminuted complex intramedullary maty fixation of proximal fem ur fracture. At the time of the surgery, she was continuing to complain of right knee pain. Laurenisjesse n was made after surgery to pursue x-ray of her left knee as she had continued persistent pain and sw elling. X-ray of her left knee does demonstrate a minimally displaced small impaction fracture of th e medial tibial plateau. The patella appears to be doing well. She has continued to complain of kne e pain and unfortunately I believe this will need to be treated with a knee immobilizer and be checke d for any sign of progression and nonweightbearing on that side, which essentially makes her nonweigh tbearing on both sides. I have spoken with the physical therapist as well as the hospitalist rickey winston this and she will have definitely problems with rehabilitation. I would suggest getting another x -ray of the knee in approximately 7 days. This has been communicated to the patient who was somewhat sleepy; however, all of her questions have otherwise been answered. JAVIER Voice ID: [id number] Report ID: [id number]
[2022-05-21] MEDS: LEVOTHYROXINE SOD 0.112 MG TAB PO SCH (06:44)
[2022-05-21] MEDS: TRAMADOL HCL 50 MG TAB PO PRN ×2 (08:56→18:51)
[2022-05-21] MEDS: ASCORBIC ACID 500 MG TABLET PO SCH (08:56)
[2022-05-21] MEDS: CYCLOBENZAPRINE 10 MG TAB PO SCH ×3 (08:56→20:20)
[2022-05-21] MEDS: ZINC SULFATE 220 MG CAP PO SCH (08:56)
[2022-05-21] MEDS: PANTOPRAZOLE 40MG TABLET PO SCH (08:56)
[2022-05-21] MEDS: VITAMIN B COMPLEX 1 CAP PO SCH (08:57)
[2022-05-21] MEDS: HYDROCORTISONE 10 MG TAB PO SCH ×2 (08:57→20:22)
--- NOTE | 2022-05-21 12:29 | EKG ---
Test Date: 2022-05-21 Test Time: 00:02:54 Property Manager: RT Tejada MEASUREMENT RESULTS: Intervals: Rate: 100 W[place]: 118 QRSD: 68 QT: 340 QTc: 438 [place]: P: 28 [place]: 118 QRS: -2 T: 12 INTERPRETIVE STATEMENTS: Normal sinus rhythm Nonspecific ST and T wave abnormality Abnormal ECG Compared to ECG 05/20/2022 21:07:50 Atrial fibrillation no longer present Ventricular premature complex(es) no longer present ST (T wave) deviation still present Electronically Signed On 05-21-22 12:28:04 CDT by Heladio Diaz
--- NOTE | 2022-05-21 12:30 | EKG ---
Test Date: 2022-05-20 Test Time: 21:07:50 Director Maternal Child: RT MEASUREMENT RESULTS: Intervals: Rate: 178 [place]: QRSD: 72 QT: 278 QTc: 478 [place]: P: [place]: QRS: -11 T: 143 INTERPRETIVE STATEMENTS: Atrial fibrillation with rapid ventricular response with premature ventricular or aberrantly conducted complexes Nonspecific ST and T wave abnormality, probably digitalis effect Abnormal ECG Compared to ECG 05/18/2022 09:26:40 Ventricular premature complex(es) now present Sinus bradycardia no longer present Myocardial infarct finding no longer present Possible ischemia no longer present ST (T wave) deviation still present Electronically Signed On 05-21-22 12:28:56 CDT by Heladio Diaz
--- NOTE | 2022-05-21 13:03 | P.PN ---
Subjective Date of Service: 05/21/22 Chief Complaint: Hip fracture Subjective: Improving (Patient is improving went into A. fib with rapid AVR yesterday currently stable is on amiodarone drip) Review of Systems General: Weakness Respiratory: Shortness of Breath Physical Examination - Vital Signs Temperature: 98 F Blood Pressure: 117/44 Pulse: 90 Respirations: 14 Pulse Ox (%): 100 - Physical Exam General: Alert, In no apparent distress, Oriented x3 Respiratory: Clear to auscultation bilaterally, Diminished Assessment And Plan - Current Problems (Diagnosis) (1) Atrial fibrillation with rapid ventricular response Onset Date: 04/03/15 Current Visit: No Status: Acute Plan: Patient developed rapid A. fib currently stable on amiodarone drip He was admitted with fractures on the right femur and tibia secondary to a fall also has an immobilizer on the left lower extremity is currently controlled audiology has been consulted Patient is in normal sinus rhythm labs reviewed
[2022-05-21] MEDS: FAMOTIDINE 20 MG TAB PO SCH (20:21)
[2022-05-21] MEDS: ATORVASTATIN 20 MG TAB PO SCH (20:21)
[2022-05-21] MEDS: DIPHENHYDRAMINE 25 MG TAB/CAP PO SCH (20:21)
[2022-05-22] MEDS: TRAMADOL HCL 50 MG TAB PO PRN ×2 (03:24→11:27)
[2022-05-22 05:20] LABS: Absolute Lymphocytes (CBC) 0.6 K/uL (0.7-4.9); Hematocrit 19.1 % (36.0-45.0); Lymphocytes % 13.4 % (15.3-44.8); MCV 93.6 fL (80-100); MPV 9.5 fL (7.6-11.3); RBC Red Blood Cell Count 2.04 M/uL (3.86-4.86)
[2022-05-22 05:37] LABS: Potassium 4.1 mmol/L (3.5-5.1)
[2022-05-22] MEDS: LEVOTHYROXINE SOD 0.112 MG TAB PO SCH (06:28)
[2022-05-22] MEDS: ZINC SULFATE 220 MG CAP PO SCH (08:31)
[2022-05-22] MEDS: CYCLOBENZAPRINE 10 MG TAB PO SCH ×3 (08:31→21:01)
[2022-05-22] MEDS: LIOTHYRONINE SOD 5 MCG TAB PO SCH (08:32)
[2022-05-22] MEDS: VITAMIN B COMPLEX 1 CAP PO SCH (08:32)
[2022-05-22] MEDS: HYDROCORTISONE 10 MG TAB PO SCH ×2 (08:32→21:01)
[2022-05-22] MEDS: ASCORBIC ACID 500 MG TABLET PO SCH (08:32)
[2022-05-22] MEDS: PANTOPRAZOLE 40MG TABLET PO SCH (08:32)
[2022-05-22] MEDS: HYDROMORPHONE HCL 1 MG/ML INJ IV PRN ×3 (08:32→17:38)
--- NOTE | 2022-05-22 10:13 | P.PN ---
Subjective Date of Service: 05/22/22 Chief Complaint: Thrombocytopenia anemia Patient still complains of pain however she is a significant decline in her hemoglobin and thrombocytopenia no GI bleed Review of Systems General: Weakness Respiratory: Shortness of Breath Physical Examination - Vital Signs Temperature: 97.6 F Blood Pressure: 156/72 Pulse: 75 Respirations: 10 Pulse Ox (%): 95 - Physical Exam General: Alert, In no apparent distress, Oriented x3 Cardiovascular: No edema, Regular rate/rhythm, Normal S1 S2 Assessment And Plan - Current Problems (Diagnosis) (1) Atrial fibrillation with rapid ventricular response Onset Date: 04/03/15 Current Visit: No Status: Acute Plan: Patient is now in normal sinus rhythm on IV amiodarone will discuss with cardiology (2) Anemia Current Visit: Yes Status: Acute Plan: Patient developed severe anemia and thrombocytopenia we will transfuse 1 unit of packed red blood cells no GI bleed Qualifiers: Anemia type: unspecified type Qualified Code(s): D64.9 - Anemia, unspecified
[2022-05-22] MEDS: METOPROLOL TAR 25 MG TAB PO SCH ×2 (11:28→17:53)
[2022-05-22] MEDS ORDERED: NA CHLORIDE 0.9% 250 ML ONE (14:20)
[2022-05-22 20:10] LABS: Hematocrit 23.1 % (36.0-45.0)
[2022-05-22] MEDS: FAMOTIDINE 20 MG TAB PO SCH (21:01)
[2022-05-22] MEDS: ATORVASTATIN 20 MG TAB PO SCH (21:01)
[2022-05-22] MEDS: DIPHENHYDRAMINE 25 MG TAB/CAP PO SCH (21:01)
[2022-05-23] MEDS: TRAMADOL HCL 50 MG TAB PO PRN ×2 (01:04→17:16)
[2022-05-23] MEDS: HYDROMORPHONE HCL 1 MG/ML INJ IV PRN ×4 (02:29→19:42)
[2022-05-23] MEDS: LEVOTHYROXINE SOD 0.112 MG TAB PO SCH (06:41)
[2022-05-23] MEDS: METOPROLOL TAR 25 MG TAB PO SCH ×2 (06:41→17:12)
[2022-05-23 07:04] LABS: Potassium 4.3 mmol/L (3.5-5.1)
[2022-05-23] MEDS: CYCLOBENZAPRINE 10 MG TAB PO SCH ×3 (08:53→19:42)
[2022-05-23] MEDS: HYDROCORTISONE 10 MG TAB PO SCH ×2 (08:53→19:56)
[2022-05-23] MEDS: VITAMIN B COMPLEX 1 CAP PO SCH (08:53)
[2022-05-23] MEDS: ASCORBIC ACID 500 MG TABLET PO SCH (08:54)
[2022-05-23] MEDS: PANTOPRAZOLE 40MG TABLET PO SCH (08:54)
[2022-05-23] MEDS: ZINC SULFATE 220 MG CAP PO SCH (08:54)
--- NOTE | 2022-05-23 09:51 | P.PN ---
Subjective Date of Service: 05/23/22 Chief Complaint: Thrombocytopenia anemia Ms. Payan is doing well she denies any pain no evidence of bleeding slight discomfort from her left leg otherwise stable Review of Systems General: Weakness Musculoskeletal: Leg Pain Physical Examination - Vital Signs Temperature: 97.6 F Blood Pressure: 135/85 Pulse: 73 Respirations: 15 Pulse Ox (%): 97 - Physical Exam General: Alert, In no apparent distress, Oriented x3 Neck: Supple Respiratory: Clear to auscultation bilaterally Cardiovascular: No edema, Regular rate/rhythm Gastrointestinal: Normal bowel sounds, Soft and benign Assessment And Plan - Current Problems (Diagnosis) (1) Atrial fibrillation with rapid ventricular response Onset Date: 04/03/15 Current Visit: No Status: Acute Plan: Patient is in normal sinus rhythm labs and meds are reviewed (2) Anemia Current Visit: Yes Status: Acute Plan: No if no evidence of any bleeding. Blood count is pending Qualifiers: Anemia type: unspecified type Qualified Code(s): D64.9 - Anemia, unspecified
[2022-05-23 14:52] LABS: Hematocrit 24.4 % (36.0-45.0); MCV 88.9 fL (80-100); MPV 8.1 fL (7.6-11.3); RBC Red Blood Cell Count 2.75 M/uL (3.86-4.86)
[2022-05-23] MEDS: ATORVASTATIN 20 MG TAB PO SCH (19:43)
[2022-05-23] MEDS: DIPHENHYDRAMINE 25 MG TAB/CAP PO SCH (19:43)
[2022-05-23] MEDS: FAMOTIDINE 20 MG TAB PO SCH (19:43)
[2022-05-23] MEDS: clonazePAM 0.5 MG TAB PO PRN (21:52)
[2022-05-24] MEDS: TRAMADOL HCL 50 MG TAB PO PRN ×2 (04:51→17:38)
[2022-05-24 05:59] VITALS: BMI 29.5
[2022-05-24] MEDS: HYDROMORPHONE HCL 1 MG/ML INJ IV PRN ×2 (06:04→13:41)
[2022-05-24] MEDS: METOPROLOL TAR 25 MG TAB PO SCH ×2 (06:08→17:38)
[2022-05-24] MEDS: LEVOTHYROXINE SOD 0.112 MG TAB PO SCH (06:08)
[2022-05-24 06:31] LABS: Hematocrit 23.7 % (36.0-45.0); MCV 86.8 fL (80-100); RBC Red Blood Cell Count 2.73 M/uL (3.86-4.86)
[2022-05-24 07:47] LABS: Anisocytosis 1+; Blood Morphology Comment NOTED (NOT SEEN); Platelet Estimate DECR; Polychromasia SLIGHT; White Blood Cell Scan OK (OK)
[2022-05-24 07:58] LABS: Potassium 3.7 mmol/L (3.5-5.1)
[2022-05-24] MEDS: VITAMIN B COMPLEX 1 CAP PO SCH (08:21)
[2022-05-24] MEDS: HYDROCORTISONE 10 MG TAB PO SCH ×2 (08:21→20:59)
[2022-05-24] MEDS: ZINC SULFATE 220 MG CAP PO SCH (08:21)
[2022-05-24] MEDS: ASCORBIC ACID 500 MG TABLET PO SCH (08:22)
[2022-05-24] MEDS: CYCLOBENZAPRINE 10 MG TAB PO SCH ×3 (08:22→21:00)
--- NOTE | 2022-05-24 13:49 | P.PN ---
Subjective Date of Service: 05/24/22 Chief Complaint: Thrombocytopenia anemia Patient has no new complaint. Heart rate currently controlled. Physical Examination - Vital Signs Temperature: 97 F Blood Pressure: 156/70 Pulse: 75 Respirations: 16 Pulse Ox (%): 100 - Physical Exam General: Alert, In no apparent distress HEENT: Mucous membr. moist/pink Neck: JVD not distended Respiratory: Diminished (Bilateral) Cardiovascular: Normal S1 S2, Edema (Bilateral lower extremities), Irregular heart rate/rhythm Gastrointestinal: Normal bowel sounds, Soft and benign, Non-distended Integumentary: No rashes Neurological: Other (Globally weak) Assessment And Plan - Current Problems (Diagnosis) (1) Closed right hip fracture Current Visit: Yes Status: Acute (2) Fall from ground level Current Visit: Yes Status: Acute (3) Atrial fibrillation with rapid ventricular response Onset Date: 04/03/15 Current Visit: No Status: Acute (4) Obesity Current Visit: No Status: Acute Qualifiers: Obesity type: due to excess calories Obesity classification: adult class 1 (BMI 30 - 34.9) Serious obesity comorbidity presence: with serious comorbidity Body mass index: BMI 34.0-34.9 Qualified Code(s): E66.09 - Other obesity due to excess calories; Z68.34 - Body mass index (BMI) 34.0-34.9, adult; Z68.34 - Body mass index (BMI) 34.0-34.9, adult (5) Acute renal insufficiency Current Visit: No Status: Acute - Plan A. fib currently rate controlled. Status post amiodarone drip. Cardiology is following. Patient transition from amiodarone drip to oral metoprolol. Blood pressure has been stable. Pain management as needed. Thrombocytopenia recovered. Suspect heparin-induced. SCD. Start low-dose Xarelto. Continue PT. Continue oral hydrocortisone for adrenal insufficiency. Monitor and optimize electrolyte. H&H.
[2022-05-24] MEDS: ATORVASTATIN 20 MG TAB PO SCH (20:59)
[2022-05-24] MEDS: FAMOTIDINE 20 MG TAB PO SCH (20:59)
[2022-05-24] MEDS: DIPHENHYDRAMINE 25 MG TAB/CAP PO SCH (21:00)
[2022-05-24] MEDS: clonazePAM 0.5 MG TAB PO PRN (23:32)
[2022-05-25] MEDS: TRAMADOL HCL 50 MG TAB PO PRN (02:02)
[2022-05-25] MEDS: HYDRALAZINE HCL 20 MG/ML VIAL IV PRN (02:02)
[2022-05-25] MEDS: METOPROLOL TAR 25 MG TAB PO SCH ×2 (05:30→15:48)
[2022-05-25] MEDS: LEVOTHYROXINE SOD 0.112 MG TAB PO SCH (05:30)
[2022-05-25 06:17] LABS: Hematocrit 26.5 % (36.0-45.0); MCV 87.5 fL (80-100); MPV 7.9 fL (7.6-11.3); RBC Red Blood Cell Count 3.02 M/uL (3.86-4.86)
[2022-05-25 06:25] LABS: Potassium 3.4 mmol/L (3.5-5.1)
[2022-05-25] MEDS: ZINC SULFATE 220 MG CAP PO SCH (10:34)
[2022-05-25] MEDS: LIOTHYRONINE SOD 5 MCG TAB PO SCH (10:34)
[2022-05-25] MEDS: HYDROCORTISONE 10 MG TAB PO SCH ×2 (10:34→20:25)
[2022-05-25] MEDS: VITAMIN B COMPLEX 1 CAP PO SCH (10:34)
[2022-05-25] MEDS: ASCORBIC ACID 500 MG TABLET PO SCH (10:34)
[2022-05-25 12:47] LABS: Specific Gravity 1.013 (1.005-1.030); Urine Bacteria 20-50 /HPF (<20); Urine Bilirubin NEGATIVE (Negative); Urine Blood Negative (Negative); Urine Clarity Turbid (Clear); Urine Color Yellow (Yellow); Urine Glucose NEGATIVE (Negative); Urine Mucus Slight /HPF (None Seen); Urine Protein TRACE (Negative); Urine Triple Phosphate Crystal Many /HPF (None Seen); Urine Urobilinogen 1+ (Normal); Urine pH 8.5 (5.0-7.0)
[2022-05-25] MEDS ORDERED: CEFTRIAXONE 1,000 MG in NA CHLORIDE 0.9% 50 ML IVPB ONE (13:12)
--- NOTE | 2022-05-25 15:14 | RAD REPORT ---
EXAM DESCRIPTION: RAD - Knee Left 3 View - 05/25/2022 2:28 pm CLINICAL HISTORY: Left knee pain FINDINGS: No significant change in appearance of mildly displaced medial tibial plateau fracture sin ce May 20, 2022 No dislocation
--- NOTE | 2022-05-25 15:28 | P.PN ---
Subjective Date of Service: 05/25/22 Chief Complaint: Thrombocytopenia anemia Patient noted to be confused this morning. Heart rate currently controlled. Physical Examination - Vital Signs Temperature: 97.2 F Blood Pressure: 163/72 Pulse: 78 Respirations: 12 Pulse Ox (%): 98 Assessment And Plan - Current Problems (Diagnosis) (1) Closed right hip fracture Current Visit: Yes Status: Acute (2) Fall from ground level Current Visit: Yes Status: Acute (3) Atrial fibrillation with rapid ventricular response Onset Date: 04/03/15 Current Visit: No Status: Acute (4) Obesity Current Visit: No Status: Acute Qualifiers: Obesity type: due to excess calories Obesity classification: adult class 1 (BMI 30 - 34.9) Serious obesity comorbidity presence: with serious comorbidity Body mass index: BMI 34.0-34.9 Qualified Code(s): E66.09 - Other obesity due to excess calories; Z68.34 - Body mass index (BMI) 34.0-34.9, adult; Z68.34 - Body mass index (BMI) 34.0-34.9, adult (5) Acute renal insufficiency Current Visit: No Status: Acute (6) Acute cystitis without hematuria Current Visit: Yes Status: Acute - Plan A. fib currently rate controlled. Status post amiodarone drip. Cardiology is following. Patient transition from amiodarone drip to oral metoprolol. Blood pressure has been stable. Pain management as needed. Thrombocytopenia recovered. Suspect heparin-induced. Start low-dose Xarelto. Patient given a dose of IV Rocephin for UTI. Discontinue Taylor catheter. We will continue with oral antibiotics. Continue PT. Continue oral hydrocortisone for adrenal insufficiency. Monitor and optimize electrolyte. H&H has been stable.
[2022-05-25] MEDS: RIVAROXABAN 10 MG TABLET PO SCH (15:44)
[2022-05-25] MEDS: FAMOTIDINE 20 MG TAB PO SCH (20:23)
[2022-05-25] MEDS: ATORVASTATIN 20 MG TAB PO SCH (20:23)
[2022-05-26] MEDS: LEVOTHYROXINE SOD 0.112 MG TAB PO SCH (05:44)
[2022-05-26] MEDS: METOPROLOL TAR 25 MG TAB PO SCH ×2 (05:44→17:24)
--- NOTE | 2022-05-26 06:48 | EKG ---
Test Date: 2022-05-19 Test Time: 10:51:15 Geoscientist: DURGA MEASUREMENT RESULTS: Intervals: Rate: 92 NM: 118 QRSD: 66 QT: 338 QTc: 417 [place]: P: 23 NM: 118 QRS: 16 T: 51 INTERPRETIVE STATEMENTS: Normal sinus rhythm Nonspecific ST abnormality Abnormal ECG Compared to ECG 05/18/2022 09:26:40 Sinus bradycardia no longer present Myocardial infarct finding no longer present Possible ischemia no longer present ST (T wave) deviation still present Electronically Signed On 05-26-22 06:33:29 CDT by Heladio Daiz
[2022-05-26] MEDS: RIVAROXABAN 10 MG TABLET PO SCH (08:54)
[2022-05-26] MEDS: VITAMIN B COMPLEX 1 CAP PO SCH (08:54)
[2022-05-26] MEDS: HYDROCORTISONE 10 MG TAB PO SCH (08:54)
[2022-05-26] MEDS: ZINC SULFATE 220 MG CAP PO SCH (08:55)
[2022-05-26] MEDS: ASCORBIC ACID 500 MG TABLET PO SCH (08:55)
[2022-05-26] MEDS ORDERED: LOSARTAN POTASSIUM 50 MG TABLET PO SCH (09:00)
[2022-05-26] MEDS ORDERED: [UNRECOGNIZED DRUG - SUPPLY] SQ SCH (09:00)
[2022-05-26] MEDS ORDERED: AMLODIPINE 10 MG TAB PO SCH (09:00)
[2022-05-26 10:05] VITALS: O2SAT 100
[2022-05-26] MEDS: HYDROCODONE/APAP 5/325 MG TAB PO PRN ×2 (10:54→17:21)
--- NOTE | 2022-05-26 13:02 | P.DS ---
Admission Date: 05/18/22 Discharge Date: 05/26/22 Disposition: TRANSFER TO SENIOR CARE Discharge Condition: FAIR Reason for Admission: Thrombocytopenia anemia - Problems (1) Closed right hip fracture Status: Acute (2) Fall from ground level Status: Acute (3) Atrial fibrillation with rapid ventricular response Onset Date: 04/03/15 Status: Acute (4) Obesity Status: Acute Qualifiers: Obesity type: due to excess calories Obesity classification: adult class 1 (BMI 30 - 34.9) Serious obesity comorbidity presence: with serious comorbidity Body mass index: BMI 34.0-34.9 Qualified Code(s): E66.09 - Other obesity due to excess calories; Z68.34 - Body mass index [BMI] 34.0-34.9, adult (5) Acute renal insufficiency Status: Acute (6) Acute cystitis without hematuria Status: Acute Brief History of Present Illness: Patient is a 81-year-old female with a known past medical history of atrial fibrillation, hypertension and hypothyroidism. She presented to the ER after a ground-level fall that resulted in right hip fracture. Patient usually ambulates with a walker and was in the process of going to the front porch of her house. She fell backwards and landed on her buttocks. There was no head trauma or loss of consciousness. Patient denied being on any anticoagulation at this time. Work-up in the ER revealed evidence of a hip fracture. Orthopedic surgery was consulted and patient admitted for further management. Hospital Course: Patient admitted to the medical floor, seen by orthopedic-Dr. Duffy to perform ORIF. Patient developed rapid atrial fibrillation postop and was managed in the ICU with amiodarone drip. She was subsequently weaned off amiodarone drip to oral metoprolol. Cardiology saw the patient and managed the atrial fibrillation. She developed thrombocytopenia likely heparin-induced. Lovenox was discontinued and the thrombocytopenia resolved recovered. She also developed anemia and was given 1 unit PRBC transfusion. Hemoglobin was stable afterwards. Patient received a couple of doses of low-dose Xarelto. Noted she has a history of excessive bleeding to Xarelto. Given her thrombocytopenia and history of bleeding from Xarelto, risk of life-threatening bleeding from thromboembolism prophylaxis with Xarelto is considered high. Case discussed with orthopedic surgeon-Dr. Duffy and the general consensus was to use aspirin only for DVT prophylaxis. Patient developed UTI likely related to Taylor catheter and was transiently confused. Taylor catheter was discontinued and she was treated with IV Rocephin with resolution of the confusion. UA is growing gram-negative rods. Patient is discharged with oral cefpodoxime to continue treatment for UTI Patient has left knee knee fracture which was stable. Dr. Duffy recommend n onweightbearing-both legs. PT saw patient for bed mobility, sitting and range of motion. Patient vitals are stable. She is considered stable for transfer to [facility] to continue skilled rehab. Vital Signs/Physical Exam: Temp Pulse Resp BP Pulse Ox 97.4 F 90 20 186/79 H 99 05/26/22 08:00 05/26/22 08:54 05/26/22 11:54 05/26/22 08:54 05/26/22 11:54 General: Alert, In no apparent distress, Oriented x3 HEENT: Mucous membr. moist/pink Neck: JVD not distended Respiratory: Clear to auscultation bilaterally, Normal air movement Cardiovascular: No edema, Regular rate/rhythm, Normal S1 S2 Gastrointestinal: Normal bowel sounds, Soft and benign, Non-distended, No tenderness Musculoskeletal: No swelling Integumentary: No rashes Neurological: Normal speech, Normal strength at 5/5 x4 extr Laboratory Data at Discharge: WBC 6.40 K/uL (4.3-10.9) 05/25/22 05:46 Hgb 9.1 g/dL (12.0-15.0) L D 05/25/22 05:46 Hct 26.5 % (36.0-45.0) L 05/25/22 05:46 Plt Count 123 K/uL (152-406) L 05/25/22 05:46 PT 12.4 SECONDS (9.5-12.5) 05/18/22 11:28 INR 1.12 05/18/22 11:28 Sodium 141 mmol/L (136-145) 05/25/22 05:46 Potassium 3.4 mmol/L (3.5-5.1) L 05/25/22 05:46 BUN 17 mg/dL (7-18) 05/25/22 05:46 Creatinine 0.50 mg/dL (0.55-1.3) L 05/25/22 05:46 Glucose 112 mg/dL (74-106) H 05/25/22 05:46 Phosphorus 3.3 mg/dL (2.5-4.9) 05/19/22 08:41 Magnesium 2.2 mg/dL (1.8-2.4) 05/19/22 08:41 Total Bilirubin 0.5 mg/dL (0.2-1.0) 05/18/22 11:28 AST 15 U/L (15-37) 05/18/22 11:28 ALT 16 U/L (12-78) 05/18/22 11:28 Alkaline Phosphatase 57 U/L (45-117) 05/18/22 11:28 Home Medications: Ascorbic Acid [Vitamin C*] 500 mg PO DAILY 12/11/21 Atorvastatin Calcium [Lipitor*] 20 mg PO BEDTIME 12/11/21 Famotidine [Pepcid*] 20 mg PO BEDTIME 12/11/21 Hydrocortisone [Cortef] 20 mg PO BID 12/11/21 Levothyroxine [Synthroid*] 112 mcg PO [id number] 12/11/21 Liothyronine Sodium [Cytomel] 5 mcg PO T,TH,S 12/11/21 Omeprazole 20 mg PO DAILY 12/11/21 Pen Injector Device [Humatropen] 0.2 mg SQ DAILY 12/11/21 Vitamin B Complex [Vitamin B Complex*] 1 cap PO DAILY 12/11/21 Zinc 50 mg PO DAILY 12/11/21 Losartan Potassium 50 mg PO DAILY 05/18/22 Potassium Chloride [Klor-Con M20] 20 meq PO DAILY 05/18/22 Amlodipine [Norvasc*] 10 mg PO DAILY tab 05/26/22 Aspirin [Aspirin EC 325 MG] 325 mg PO DAILY #42 tab 05/26/22 Cefpodoxime Proxetil 100 mg PO BID #6 05/26/22 Hydrocodone 5/APAP 325 [Startex 5/325*] 1 tab PO Q6H PRN #15 tab 05/26/22 Metoprolol Tartrate [Lopressor*] 25 mg PO BID 6AM 6PM tab 05/26/22 New Medications: Aspirin [Aspirin EC 325 MG] 325 mg PO DAILY #42 tab Cefpodoxime Proxetil 100 mg PO BID #6 Hydrocodone 5/APAP 325 [Startex 5/325*] 1 tab PO Q6H PRN #15 tab PRN Reason: Pain Scale 5-7 (Moderate) Physician Discharge Instructions: PT for bed mobility, sitting and range of motion. Diet: ADA Activity: Posterior hip precautions Followup: Cameron Duffy MD [ACTIVE - CAN ADMIT] - (call to schedule an appointment within 1 week) Dany Iraheta MD [OUTSIDE PHYSICIAN] - Time spent managing pt's care (in minutes): 36
[2022-05-26 17:40] VITALS: BP 147/67; TEMP 97.6
== END 2022-05-26 17:54 | DRG 481 ==
LOC: ER 09:04 → ERHOLD 11:02 → 2ND 14:27 → 3RD-ICU 05-20 21:45 → 4TH 05-25 01:45
PROVIDERS: ADMIT Internal Medicine; ATTEND Internal Medicine
PROC: 0QS606Z Reposition Right Upper Femur with Intramedullary Internal Fixation Device, Open Approach (ICD-10-PCS; principal; 2022-05-19 11:30)
PROC: 30233N1 Transfusion of Nonautologous Red Blood Cells into Peripheral Vein, Percutaneous Approach (ICD-10-PCS; 2022-05-22)
DX: S72.141A Displaced intertrochanteric fracture of right femur, initial encounter for closed fracture (principal); S82.142A Displaced bicondylar fracture of left tibia, initial encounter for closed fracture; N30.00 Acute cystitis without hematuria; T83.518A Infection and inflammatory reaction due to other urinary catheter, initial encounter; I97.89 Other postprocedural complications and disorders of the circulatory system, not elsewhere classified; E03.9 Hypothyroidism, unspecified; E11.9 Type 2 diabetes mellitus without complications; K21.9 Gastro-esophageal reflux disease without esophagitis; E83.42 Hypomagnesemia; I11.0 Hypertensive heart disease with heart failure; I50.9 Heart failure, unspecified; E87.6 Hypokalemia; N28.9 Disorder of kidney and ureter, unspecified; D64.9 Anemia, unspecified; E66.09 Other obesity due to excess calories; E78.5 Hyperlipidemia, unspecified; I48.0 Paroxysmal atrial fibrillation; D75.82 Heparin induced thrombocytopenia (HIT); T45.515A Adverse effect of anticoagulants, initial encounter; B96.89 Other specified bacterial agents as the cause of diseases classified elsewhere; Z88.1 Allergy status to other antibiotic agents; Z88.8 Allergy status to other drugs, medicaments and biological substances; Z79.84 Long term (current) use of oral hypoglycemic drugs; Z90.49 Acquired absence of other specified parts of digestive tract; Z86.73 Personal history of transient ischemic attack (TIA), and cerebral infarction without residual deficits; Z68.34 Body mass index [BMI] 34.0-34.9, adult; Z86.718 Personal history of other venous thrombosis and embolism; Z79.890 Hormone replacement therapy; Z79.899 Other long term (current) drug therapy; Z20.822 Contact with and (suspected) exposure to COVID-19; W18.30XA Fall on same level, unspecified, initial encounter; Y92.099 Unspecified place in other non-institutional residence as the place of occurrence of the external cause; Y93.9 Activity, unspecified; Y83.8 Other surgical procedures as the cause of abnormal reaction of the patient, or of later complication, without mention of misadventure at the time of the procedure
CPT/HCPCS: 36415; 36430; 70450; 71045; 71250; 72125; 72170; 73700; 76377; 80048; 80076; 81001; 81003; 82947; 83605; 83735; 83880; 84100; 84484; 85014; 85018; 85025; 85027; 85610; 86850; 86900; 86901; 87077; 87086; 87088; 87186; 87811; 92610; 93005; 97110; 97161; 97166; 97530; 99285; J0282; J0360; J0690; J1170; J1720; J2001; J2175; J2405; J2550; J2704; J3010; J3475; J3480; J7030; J7040; J7050; J7060; J7120; P9016; U0003

== ENCOUNTER 2023-02-05 15:21 | Emergency (ER) | payer OTHER ==
--- OUTSIDE RECORDS SUMMARY | 2023-02-05 15:35 | XMS REPORT | Continuity of Care Document ---
:1940 Author Organization [facility] t Address [address] [place] [address] Care Team Providers Name Role Phone No MD, Pcp Primary Care Physician Unavailable AVIS BAKER EMILE Attending Clinician Unavailable [id number] Attending Clinician Unavailable Kemar Hall Attending Clinician Unavailable Chel Valdez Attending Clinician Unavailable Dany Iraheta Attending Clinician Unavailable JOSY SYED Attending Clinician Unavailable BARRY PACK Attending Clinician Unavailable JASON Attending Clinician Unavailable Ree Tolbert Attending Clinician ABELINO AMARO Attending Clinician Unavailable ALANNA MOBLEY Attending Clinician Unavailable MARYSOL NGUYEN Attending Clinician Unavailable Doctor Unassigned, Al[place] Attending Clinician Unavailable Lynne Foster Attending Clinician Jose Eduardo Valdovinos MD Attending Clinician [phone] [place] [address] Attending Clinician Unavailable Pamela Terry DO Attending Clinician Chelsey Barker RN Attending Clinician Unavailable Josy Syed MD Attending Clinician Avtar Frazier Attending Clinician Todd Quan RN Attending Clinician Unavailable RAINE ZAYAS Attending Clinician Unavailable Hernando STRATTON, Latoya Duff Attending Clinician Abril STRATTON, Fabrizio Ortiz Attending Clinician Omar STRATTON, Matt Ghosh Attending Clinician Candelario STRATTON, Raine Zimmer Attending Clinician Kylie STRATTON, Jai Attending Clinician [phone] Ervin, Chase Attending Clinician Katelynn STRATTON, Felipe Tejada Attending Clinician Jay STRATTON, Bela Attending Clinician Edith STRATTON, Rio Attending Clinician Walter STRATTON, Aidan Attending Clinician YOAV DEL ROSARIO Attending Clinician Unavailable LUIZ VILLA Attending Clinician Unavailable RANCHO SANDOVAL Attending Clinician Unavailable SAMUEL, AVIS, AVIS Admitting Clinician Unavailable [id number] Admitting Clinician Unavailable JOSY SYED Admitting Clinician Unavailable ERICKSON_R Admitting Clinician Unavailable ABELINO AMARO Admitting Clinician Unavailable Josy Syed MD Admitting Clinician RAINE ZAYAS Admitting Clinician Unavailable Raine Zayas MD Admitting Clinician LUIZ VILLA Admitting Clinician Unavailable RANCHO SANDOVAL Admitting Clinician Unavailable Payers Payer Name Policy Type Policy Number Effective Date Expiration Source Date AETNA MEDICARE PPO [id number] 2022 00:00:00 AETM AETM [id number] MEDICARE PART A \\T\\ B [id number] 2003 00:00:00 AETNA (MEDICARE [id number] 2022 REPLACEMENT PPO) 00:00:00 MEDICARE B-[place]: [id number] 2003 NOVBoomiS Crestock 00:00:00 AETNA [id number] 2000 00:00:00 MEDICAREMEDICARE A [id number] CEDR[facility] [place] t [id number] 2003 00:00:00 [facility] A[facility] - MGD CAREAETNA [id number] INDEMNITY NON 00:00:00 [place]ie [id number] Med ical 14-[facility] Problems Condition Condition Condition Status Onset Resolution Last Treating Co mments Source Name Details Category Date Date Treatment Clinician Date Open Open Disease Active [place] fracture fracture 2-08 Health of of 00:00: proximal proximal 00 end of end of right right tibia with tibia with routine routine healing healing Recurrent Recurrent Problem Active [facility] urinary Urinary 2-28 Communi tract Tract 00:00: ty infection Infection 00 [facility]osp [facility]yl [facility] Clinics Nutritiona Nutritiona Problem Active S [facility] l disorder l Disorder 1-24 Co mmuni 00:00: ty 00 [facility]ospita [facility] Clinics Chronic Chronic Problem Active [place] anemia Anemia 1-24 Communi 00:00: ty 00 [facility]ospita l Clinics Pressure Pressure Problem Active [facility] injury of Injury of 8-24 Comm uni buttock Buttock 00:00: ty 00 Hospita l Clinics Hypokalemi Hypokalemi Problem Active S we[facility]y a a 8-09 Communi 00:00: ty 00 Hospita l Clinics Recurrent Recurrent Disease Active Uni vers acute deep acute deep 07 it y of vein vein 00:00: [place] thrombosis thrombosis 00 Me dical (DVT) of (DVT) of Branch left lower left lower extremity extremity DVT, lower DVT, lower Disease Active U nivers extremity, extremity, 7-07 it y of proximal, proximal, 00:[place] acute, acute, 00 Medical left left Branch Melena Melena Disease Active Univers 4-18 ity of 00:00: [place] 00 Medical Branch Degenerati Degenerati Problem Active S wemadeleine on of on of 3-05 Communi lumbar Lumbar 00:00: ty interverte Interverte 00 Ho spita bral disc bral Disc l Clinics Osteoporos Osteoporos Problem Active S weeny is is 3-05 Communi 00:00: ty 00 Hospita l Clinics Compressio Compressio Problem Active S [facility]y n fracture n Fracture 3-05 Co mmuni of lumbar of Lumbar 00:00: ty spine Spine 00 Hospita l Clinics Osteoporot Osteoporot Problem Active S weeny ic ic 3-05 Communi fracture Fracture 00:00: ty 00 Hospita l Clinics Scoliosis Scoliosis Problem Active [facility] of lumbar of Lumbar 2-12 Comm uni spine Spine 00:00: ty 00 Hospita l Clinics Hyperglyce Hyperglyce Problem Active S weeny veena veena 9-14 Communi 00:00: ty 00 Hospita l Clinics Coronary Coronary Problem Active [facility] arterioscl Arterioscl 8-19 Co mmuni erosis in erosis in 00:00: ty [place] [facility] artery Artery l Clinics 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 8-19 Co mmuni icular icular 00:00: ty tachycardi Tachycardi 00 Ho spita a a l Clinics Paroxysmal Paroxysmal Problem Active S [facility] atrial Atrial 8-19 Communi fibrillati Fibrillati 00:00: ty on Hospita l Clinics Thrombophl Thrombophl Problem Active S [facility] ebitis of ebitis of 8-19 Comm uni lower Lower 00:00: ty extremitie Extremitie 00 Ho spita s s l Clinics Edema of Edema of Problem Active [facility] lower Lower 8-19 Communi extremity Extremity 00:00: ty 00 Hospita l Clinics Palpitatio Palpitatio Problem Active S [facility]y ns ns 8-19 Communi 00:00: ty 00 [facility]ospita [facility] Clinics Malignant Malignant Problem Active [facility] tumor of Tumor of 1-07 Commun i pituitary Pituitary 00:00: ty gland Gland 00 Hospita l Clinics Hypothyroi Hypothyroi Problem Active S [facility] dism dism 1-07 Communi 00:00: ty 00 Hospita l Clinics Type 2 Type 2 Problem Active [place] diabetes Diabetes 1-07 Commun i mellitus Mellitus 00:00: ty 00 Hospita l Clinics Diabetic Diabetic Problem Active [facility] peripheral Peripheral 1-07 Co mmuni neuropathy Neuropathy 00:00: ty 00 [facility] Clin[facility] 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 Hyperchole 1-07 Co mmuni sterolemia sterolemia 00:00: ty and and [facility] hypertrigl Hypertrigl l yceridemia yceridemia Cl inics Anxiety Anxiety Problem Active [place] 1-07 Communi 00:00: ty 00 [facility] Clinics Carpal Carpal Problem Active [place] tunnel 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 00:00: ty 00 [facility] Neuropathy Neuropathy Problem Active S weeny 1-07 Communi 00:00: ty 00 [facility] Hypertensi Hypertensi Problem Active S weeny ve ve 1-07 Communi disorder Disorder 00:00: ty 00 [facility] Chronic Chronic Problem Active [place] atrial Atrial 1-07 Communi fibrillati Fibrillati 00:00: ty on on [facility] Clinics Deep Deep Problem Active [place] venous Venous 1-07 Communi thrombosis Thrombosis 00:00: ty 00 [facility] Lymphedema Lymphedema Problem Active S weeny 1-07 Communi 00:00: ty 00 [facility] Gastroesop Gastroesop Problem Active S weeny hageal hageal 1-07 Communi reflux Reflux 00:00: ty disease Disease 00 [facility] History of History of Problem Active S weeny malignant Malignant 1-07 Comm uni neoplasm Neoplasm 00:00: ty of breast of Breast 00 Hosp meryl [facility] Sepsis Sepsis Disease Recurre [facility] [place] Paroxysmal Paroxysmal Disease Recurre [facility] A-fib A-fib nce 5[facility]12 [facility] 00:[facility]: Medical 00 Center Pancreatit Pancreatit Disease Active C [facility] is is 5-12 [facility] 00:[facility]: Medical 00 [place] Chest pain Chest pain Disease Active U natalie 6-15 ity of 00:00: [place] 00 Medical Branch Allergies, Adverse Reactions, Alerts Allergy Allergy Status Severity Reaction(s) Onset Inactive Treating Comm ents Source Name Type Date Date Clinician Ciproflo Allergy Active [place] xacin to 2-08 Health substanc 00:00: e 00 [place] Allergy Active [place] ban to 10-13 Health substanc 00:00: e 00 Penicill Propensi Active Hives Method i ins [...] Uni vers xacin ty to See comments -18 ity of adverse 00:00: [place] reaction 00 Medical s Branch Piperaci Propensi Active Unknown - bleeding U nivers llin-Michael ty to See comments 18 it y of obactam adverse 00:00: [place] reaction 00 Medical s Branch Piperaci Propensi Active Other (See bleeding Methodi llin-Michael ty to Comments) 12-21 st obactam adverse 00:00: Hospita reaction 00 l s to drug Ciproflo Propensi Active Itching [facility] xacin ty to 01-14 [facility] adverse 00:00: Medical reaction 00 Center s Rivaroxa Drug Active Other (See Internal [facility] I [facility] ban Intolera Comments) 5 bleeding Mindy es nce 00:00: Medical 00 Center Ciproflo Propensi Active Other (See itch Me thodi xacin ty to Comments) 01-14 st adverse 00:00: Hospita reaction 00 l s to drug Rivaroxa Propensi Active Other (See Internal Methodi ban ty to Comments) [address] adverse 00:00: Hospita reaction 00 l s to drug Cipro Allergy Active [place] to Communi substan ty e Hospita l Clinics PENICILL Allergy Active [place] INS to Communi substanc ty e Hospita l Clinics Xarelto Allergy Active [place] to Communi substan ty e Hospita l Clinics Family History Family Member Diagnosis Comments Start Date Stop Date Source Natural father Heart disease [facility] Natural father Coronary Heart [facility] [place] Disease Medical Branch Natural mother Heart disease [facility] Natural mother Coronary Heart Univer [facility] [place] Natural sister Heart [facility] Social History Social Habit Start Date Stop Date Quantity Comments Source Gender identity [facility] Sexual orientation Method [facility] Hospital Exposure to 2022-12-20 2022-12-30 Not sure [facility] [place] [facility] SARS-CoV-2 (event) 00:00:00 10:11:00 Alcohol intake 2018-11-09 2018-11-[address] [facility] es 00:00:00 00:00:00 non-drinker of Medical nter alcohol (finding) Tobacco use and 2018-03-13 2018-03-[address] [facility] k[facility] exposure 00:00:00 00:00:00 tobacco non-user [facility] Sex Assigned At [address] [facility] 00:00:00 00:00:00 [facility] Center Smoking Status Start Date Stop Date Source Tobacco smoking consumption [facility] unknown Never smoker [facility] Medications Ordered Filled Start Stop Current Ordering Indication Dosage Frequency Signature Comments Components Source Medication Medication Date Date Medication? Clinician (SIG) Name Name lidocaine lidocaine No Q1D lidocaine [place] (PF) 50 (PF) 50 3- (PF) 50 Commun i mg/5 mL (1 mg/5 mL (1 11:26: mg/5 mL (1 ty %) %) 24 %) Hospita injection injection injection l syringeTake syringeTake syringeTak Clinics 2.1 mL 2.1 mL e 2.1 mL every day every day every day by by by injection injection injection route. route. route. ceftriaxone ceftriaxone No ceftriaxon [place] 500 mg 500 mg 3-08 e 500 mg Communi solution solution 11:25: solution t y for for 40 for Hospita injectionTa injectionTa injectionT l ke 500 mg ke 500 mg anat 500 mg Clinics by by by injection injection injection route. route. route. lidocaine lidocaine No Q1D lidocaine [place] (PF) 50 (PF) 50 3-04 (PF) 50 Commun i mg/5 mL (1 mg/5 mL (1 11:32: mg/5 mL (1 ty %) %) 36 %) Hospita injection injection injection l syringeTake syringeTake syringeTak Clinics 2.1 mL 2.1 mL e 2.1 mL every day every day every day by by by injection injection injection route for 4 route for 4 route for days. days. 4 days. ceftriaxone ceftriaxone No ceftriaxon [place] 500 mg 500 mg 3-04 e 500 mg Communi solution solution 11:31: solution t y for for 50 for Hospita injectionTa injectionTa injectionT l ke 500 mg ke 500 mg anat 500 mg Clinics by by by injection injection injection route. route. route. lidocaine lidocaine No Q1D lidocaine [place] (PF) 50 (PF) 50 3-03 (PF) 50 Commun i mg/5 mL (1 mg/5 mL (1 14:33: mg/5 mL (1 ty %) %) 20 %) Hospita injection injection injection l syringeTake syringeTake syringeTak [facility] 2.1 mL 2.1 mL e 2.1 mL every day every day every day by by by injection injection injection route for 4 route for 4 route for days. days. 4 days. ceftriaxone ceftriaxone No ceftriaxon [place] 500 mg 500 mg 3-03 e 500 mg Communi solution solution 14:30: solution t y for for 22 for Hospita injectionTa injectionTa injectionT l ke 500 mg ke 500 mg anat 500 mg Clinics by by by injection injection injection route. route. route. ceftriaxone ceftriaxone No ceftriaxon [place] 500 mg 500 mg 2-28 e 500 mg Communi solution solution 14:40: solution t y for for 23 for Hospita injectionTa injectionTa injectionT l ke 500 mg ke 500 mg anat 500 mg Clinics by by by injection injection injection route. route. route. lidocaine lidocaine No Q1D lidocaine [place] (PF) 50 (PF) 50 2-28 (PF) 50 Commun i mg/5 mL (1 mg/5 mL (1 14:37: mg/5 mL (1 ty %) %) 41 %) Hospita injection injection injection l syringeTake syringeTake syringeTak [facility] 2.1 mL 2.1 mL e 2.1 mL every day every day every day by by by injection injection injection route for 4 route for 4 route for days. days. 4 days. isosorbide 2020-0 Yes [id number] 30mg Take 1 U nivers mononitrate 7-10 tablet by ity of 30 mg 24 hr 00:00: mouth [place] tablet 00 daily. Medical Branch levothyroxi Yes [id number] 112ug Take 1 Univers ne 112 mcg 7-10 tablet by ity of tablet 00:00: mouth [place] 00 every Medical morning. Branch hydrocortis Yes [id number] 40mg Take 2 Univers one 20 mg 7-10 tablets by ity of tablet 00:00: mouth [place] 00 every Medical morning. Branch isosorbide Yes [id number] 30mg Take 1 U nivers mononitrate 7-10 tablet by ity of 30 mg 24 hr 00:00: mouth [place] tablet 00 daily. Medical Branch levothyroxi Yes [id number] 112ug Take 1 Univers ne 112 mcg 7-10 tablet by ity of tablet 00:00: mouth [place] 00 every Medical morning. Branch hydrocortis Yes [id number] 40mg Take 2 Univers one 20 mg [...] mouth ity of mg tablet 18:04: daily. [place] 43 Medical Branch CALCIUM Yes 1{tbl} Take [...] 43 as needed. Medical Branch lipase-prot Yes [id number] 1{capsu Take 1 Univers ease-amylas 7- 107 le} capsule by it y of e 00:00: mouth 3 [place] 10,500-35,5 00 (three) Medic al 00- 61,500 times Branch unit daily with meals. polyethylen Yes [id number] 17g Take 1 Univers e glycol 7- Packet by ity of 3350 17 00:00: mouth 2 [place] gram powder 00 (two) Medical times Branch daily as needed for Constipati on. simethicone Yes [id number] 80mg Take 1 Univers 80 mg 7-09 tablet by ity of chewable 00:00: mouth 2 [place] tablet 00 (two) Medical times Branch daily as needed for Gas. somatropin Yes [id number] .2mg inject U nivers 0.2 mg/0.25 7-09 0.25 mL ity o f mL 00:00: under the [place] 00 skin Medical daily. Branch apixaban 5 Yes [id number] 5mg Take 1 Unive rs mg tablet 7-09 tablet by ity o f 00:00: mouth 2 [place] 00 (two) Medical times Branch daily. Indication s: atrial fibrillati on hydrocortis Yes [id number] 20mg Take 1 Univers one 20 mg 7-09 tablet by ity o f tablet 00:00: mouth [place] 00 every Medical evening. Branch mirtazapine Yes [id number] 15mg Take 1 Univers 15 mg 7-09 tablet by ity of tablet 00:00: mouth at [place] 00 bedtime. Medical Branch hydrocortis Yes [id number] 100mg 2 mL by Univers one sod 03-13 Intramuscu ity of succ 100 00:00: lar route [place] mg/2 mL 00 as needed Medical injection (As rescue Bran ch for low cortisol if there is low BP, N/V.). lipase-prot Yes [id number] 1{capsu Take 1 Univers ease-amylas 03-13 107 le} capsule by it y of e 00:00: mouth 3 [place] 10,500-35,5 00 (three) Medic al 00- 61,500 times Branch unit daily with meals. polyethylen Yes [id number] 17g Take 1 Univers e glycol 03-13 Packet by ity of 3350 17 00:00: mouth 2 [place] gram powder 00 (two) Medical times Branch daily as needed for Constipati on. simethicone Yes [id number] 80mg Take 1 Univers 80 mg 03-13 tablet by ity of chewable 00:00: mouth 2 [place] tablet 00 (two) Medical times Branch daily as needed for Gas. somatropin Yes [id number] .2mg inject U nivers 0.2 mg/0.25 - 0.25 mL ity o f mL 00:00: under the [place] 00 skin Medical daily. Branch apixaban 5 Yes [id number] 5mg Take 1 Unive rs mg tablet 03-13 tablet by ity o f 00:00: mouth 2 [place] 00 (two) Medical times Branch daily. Indication s: atrial fibrillati on hydrocortis Yes [id number] 20mg Take 1 Univers one 20 mg - tablet by ity o f tablet 00:00: mouth [place] 00 every Medical evening. Branch mirtazapine Yes [id number] 15mg Take 1 Univers 15 mg 7-09 tablet by ity of tablet 00:00: mouth at [place] 00 bedtime. Medical Branch hydrocortis Yes [id number] 100mg 2 mL by Univers one sod 03-13 Intramuscu ity of succ 100 00:00: lar route [place] mg/2 mL 00 as needed Medical injection (As rescue Bran ch for low cortisol if there is low BP, N/V.). acetaminoph 2021- No [id number] 650mg Take 2 Univers en 325 mg 03-13 8 tablets by ity of tablet 00:00: 04:59 mouth [place] 00 :00 every 6 Medical (six) Branch hours as needed for Pain (scale 1-3). acetaminoph 2021- No [id number] 650mg Take 2 Univers en 325 mg 03-13 8 tablets by ity of tablet 00:00: [...] at [place] 00 bedtime. Medical Branch hydrocortis 0 Yes 10mg Take 1 Univ ers one 10 mg 4-29 tablet by ity o f tablet 00:00: mouth [place] 00 every Medical evening. Branch lidocaine 5 0 Yes 1{patch Apply 1 Univers % (700 4-29 } Patch to ity of mg/patch) 00:00: area(s) [place] patch 00 daily. Medical Branch sotaloL 80 0 Yes 80mg Take 1 Unive rs mg tablet 4-29 tablet by ity o f 00:00: mouth [place] 00 every 12 Medical (twelve) Branch hours. atorvastati 2020-0 Yes 40mg Take 1 Univ ers n 40 mg 4-29 tablet by ity of tablet 00:00: mouth at [place] 00 bedtime. Medical Branch hydrocortis Yes 10mg Take 1 Univ ers one 10 mg 4-29 tablet by ity o f tablet 00:00: mouth [place] 00 every Medical evening. Branch cholecalcif Yes [id number] Take [facility], 3-07 [facility],000 [facility] [...] usly. Medic al PnIj 28 Center cholecalcif Yes [id number] Take [facility], 3-07 [facility],000 [facility] [...] tablet 28 needed for Center Anxiety. somatropin 2019- Yes Inject [facility] S t 5 mg/1.5 mL 3-07 subcutaneo Domitila kes (3.3 mg/mL) 12:12: usly. Medic al PnIj 28 Center cholecalcif Yes [id number] Take [facility], 3-07 50,000 [facility] vitamin D3, 12:12: Units by [place] dical 50,000 unit 28 mouth once Ce [...] MG tablet 12:12: daily. Medica l 28 [place] omeprazole 2018-0 Yes 40mg QD Take 40 [...] al PnIj 28 Center cholecalcif 2019-0 Yes [id number] [facility], 3-07 50,000 [facility] [...] S t 5 mg/1.5 mL 3-07 subcutaneo Dmoitila kes (3.3 mg/mL) 12:12: usly. Medic al PnIj 28 Center cholecalcif 2019-0 Yes [id number] [facility], 3-07 50,000 [facility] [...] 12:12: daily. Medica l 27 Center losartan 0 Yes 100mg QD Take [address] [...] FORTE) 5 MG 27 Center tablet levothyroxi [id number] Yes hypothyroid 125ug Take [address] ne 3-07 ism mcg by [facility]ukes (SYNTHROID, 12:12: mouth Medic al LEVOTHROID) 27 Every Center 125 MCG morning on tablet an empty stomach. amLODIPine 2019-0 Yes 5mg QD Take [address] (NORVASC) 5 3-07 by mouth Luke s MG tablet 12:12: daily. Medica l 27 [place] losartan 0 Yes 100mg QD Take [address] (COZAAR) 3-07 mg by [facility] 100 MG 12:12: mouth Medical tablet 27 daily. Center methscopola 2019-0 Yes 5mg QD Take [address] [facility] 3-07 by mouth [facility] (PAMINE 12:12: nightly. Medica l FORTE) 5 MG 27 Center tablet levothyroxi 2019-0 Yes hypothyroid 125ug Take [address] [...] 00:00: mouth Medical tablet 00 daily . [place] warfarin 2018-0 Yes 2.5mg QD Take 2.[address] (COUMADIN) 4-25 mg by [facility]ukes 2.5 MG 00:00: mouth Medical tablet 00 daily . [place] warfarin 2018-0 Yes 2.5mg QD Take 2.[address] (COUMADIN) 4-25 mg by Lukes 2.5 MG 00:00: mouth Medical tablet 00 daily . [place] warfarin 2018-0 Yes 2.5mg QD Take 2.[address] (COUMADIN) 4-25 mg by Lukes 2.5 MG 00:00: mouth Medical tablet 00 daily . [place] warfarin 2018-0 Yes 2.5mg QD Take 2.[address] (COUMADIN) 4-25 mg by [facility]ukes 2.5 MG 00:00: mouth Medical tablet 00 daily . [place] gabapentin 2018-0 Yes 600mg Q.[id number] Take [address] (NEURONTIN) 4-16 [id number] mg by L ukes 600 MG 00:00: 3D mouth 3 Medical tablet 00 (three) Center times daily . gabapentin 2018-0 Yes 600mg Q.[id number] Take [address] (NEURONTIN) 4-16 [id number] mg by L ukes 600 MG 00:00: 3D mouth 3 Medical tablet 00 (three) Center times daily . gabapentin 2018-0 Yes 600mg Q.[id number] Take [address] (NEURONTIN) 4-16 [id number] mg by L ukes 600 MG 00:00: 3D mouth 3 Medical tablet 00 (three) Center times daily . gabapentin 2018-0 Yes 600mg Q.[id number] Take [address] (NEURONTIN) 4-16 [id number] mg by L ukes 600 MG 00:00: 3D mouth 3 Medical tablet 00 (three) Center times daily . gabapentin 2018-0 Yes 600mg Q.[id number] Take [address] (NEURONTIN) 4-16 [id number] mg by L ukes 600 MG 00:00: 3D mouth 3 Medical tablet 00 (three) Center times daily . liothyronin 2018-0 Yes 5ug QD Take [address] e (CYTOMEL) 3-21 by mouth Luke s 5 MCG 00:00: daily . Medical tablet 00 [place] liothyronin 2018-0 Yes 5ug QD Take [address] e (CYTOMEL) 3-21 by mouth Luke s 5 MCG 00:00: daily . Medical tablet 00 [place] liothyronin 2018-0 Yes 5ug QD Take [address] e (CYTOMEL) 3-21 by mouth Luke s 5 MCG 00:00: daily . Medical tablet 00 [place] liothyronin 2018-0 Yes 5ug QD Take [address] e (CYTOMEL) 3-21 by mouth Luke s 5 MCG 00:00: daily . Medical tablet 00 [place] liothyronin 2018-0 Yes 5ug QD Take [address] e (CYTOMEL) 3-21 by mouth Luke s 5 MCG 00:00: daily . Medical tablet 00 [place] omeprazole omeprazole No omeprazole [place] 40 mg 40 mg 40 mg Communi capsule,del capsule,del capsule,de ty ayed ayed layed Hospita release release release l TAKE 1 TAKE 1 TAKE 1 Clinics CAPSULE BY CAPSULE BY CAPSULE BY MOUTH EVERY MOUTH EVERY MOUTH MORNING MORNING EVERY MORNING OneTouch OneTouch No OneTouch Swe madeleine Delica Plus Delica Plus Delica Communi Lancet 30 Lancet 30 Plus ty gauge TEST gauge TEST Lancet 30 Hospita TWICE A DAY TWICE A DAY gauge TEST l TWICE A Clinics DAY OneTouch OneTouch No OneTouch Swe madeleine Verio Flex Verio Flex Verio Flex Communi Meter FOR Meter FOR Meter FOR ty TESTING.1 TESTING.1 TESTING.1 Hospita BOX ICD 10 BOX ICD 10 BOX ICD 10 l E11.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.65 Clinics OneTouch OneTouch No OneTouch Swe madeleine Verio test Verio test Verio test Communi strips TEST strips TEST strips ty TWICE A DAY TWICE A DAY TEST TWICE Hospita A DAY l Clinics potassium potassium No potassium [place] chloride ER chloride ER chloride Communi 20 mEq 20 mEq ER 20 mEq ty tablet,exte tablet,exte tablet,ext Hospita nded nded ended l release(par release(par release(in Clinics t/cryst) t/cryst) rt/cryst) TAKE 1 TAKE 1 TAKE 1 TABLET BY TABLET BY TABLET BY MOUTH EVERY MOUTH EVERY MOUTH DAY DAY EVERY DAY Santyl 250 Santyl 250 No Santyl 250 [place] unit/gram unit/gram unit/gram Communi topical topical topical ty ointment ointment ointment Hos michael APPLY A APPLY A APPLY A l DIONY [facility] THICK THICK THICK AMOUNT TO AMOUNT TO AMOUNT TO WOUND 3 WOUND 3 WOUND 3 TIMES A TIMES A TIMES A WEEK WEEK WEEK sotalol 160 sotalol 160 No sotalol [place] mg tablet mg tablet 160 mg Com raz TAKE 1 TAKE 1 tablet ty TABLET BY TABLET BY TAKE 1 Hos michael MOUTH EVERY MOUTH EVERY TABLET BY l 12 HOURS 12 HOURS MOUTH Clinic s FOR 90 DAYS FOR 90 DAYS EVERY 12 HOURS FOR 90 DAYS sotalol 80 sotalol 80 No sotalol 80 [place] mg tablet mg tablet mg tablet Communi TAKE 1 TAKE 1 TAKE 1 ty TABLET BY TABLET BY TABLET BY Hospita MOUTH EVERY MOUTH EVERY MOUTH l DAY DAY EVERY DAY Clinics tramadol 50 tramadol 50 No tramadol [place] mg tablet mg tablet 50 mg Comm uni TAKE 1 TAKE 1 tablet ty TABLET BY TABLET BY TAKE 1 Hos michael MOUTH EVERY MOUTH EVERY TABLET BY l 12 HOURS 12 HOURS MOUTH Clinics NEEDED FOR NEEDED FOR EVERY 12 PAIN PAIN HOURS NEEDED FOR PAIN amlodipine amlodipine No amlodipine [facility] 5 mg tablet 5 mg tablet 5 mg C [facility] TAKE 1 TAKE 1 tablet ty TABLET BY TABLET BY TAKE 1 [facility] MOUTH EVERY MOUTH EVERY TABLET BY l DAY FOR 90 DAY FOR 90 MOUTH Cl inics DAYS DAYS EVERY DAY FOR 90 DAYS atorvastati atorvastati No atorvastat [facility] n 20 mg n 20 mg in 20 mg Commu ni tablet TAKE tablet TAKE tablet ty 1 TABLET BY 1 TABLET BY TAKE 1 Hospita MOUTH EVERY MOUTH EVERY TABLET BY l DAY DAY MOUTH Clinics EVERY DAY BD Kalee 2nd BD Kalee 2nd No BD Kalee [facility] Gen Pen Gen Pen 2nd Gen Commun i Needle 32 Needle 32 Pen Needle ty gauge x gauge x 32 gauge x Hos m[facility] " 1 " 1 " 1 l TIME A DAY TIME A DAY TIME A DAY Clinics cefdinir cefdinir No cefdinir [facility] 300 mg 300 mg 300 mg Communi capsule capsule capsule ty TAKE 1 TAKE 1 TAKE 1 Hospita CAPSULE BY CAPSULE BY CAPSULE BY l MOUTH EVERY MOUTH EVERY MOUTH Clinics 12 HOURS 12 HOURS EVERY 12 HOURS cholecalcif cholecalcif No cholecalci [facility] ghada ghada ferol Communi (vitamin (vitamin (vitamin ty D3) 1,250 D3) 1,250 D3) 1,250 Hospita mcg (50,000 mcg (50,000 mcg l unit) unit) (50,000 Clinics capsule capsule unit) TAKE 1 TAKE 1 capsule CAPSULE BY CAPSULE BY TAKE 1 MOUTH EVERY MOUTH EVERY CAPSULE BY 15 DAYS 15 DAYS MOUTH EVERY 15 DAYS ciprofloxac ciprofloxac No ciprofloxa [facility] in 500 mg in 500 mg anuj 500 mg Communi tablet tablet tablet ty Hospita l Clinics clonazepam clonazepam No clonazepam [facility] 0.5 mg 0.5 mg 0.5 mg Communi tablet TAKE tablet TAKE tablet ty 1 TABLET BY 1 TABLET BY TAKE 1 Hospita MOUTH EVERY MOUTH EVERY TABLET BY l DAY DAY MOUTH Clinics NEEDED NEEDED EVERY DAY NEEDED docusate docusate No docusate Swe [facility] sodium 100 sodium 100 sodium 100 Communi mg capsule mg capsule mg capsule ty TAKE 1 TAKE 1 TAKE 1 Hospita CAPSULE BY CAPSULE BY CAPSULE BY l MOUTH EVERY MOUTH EVERY MOUTH Clinics DAY DAY EVERY DAY doxycycline doxycycline No doxycyclin [facility] hyclate 100 hyclate 100 e hyclate Communi mg capsule mg capsule 100 mg t y TAKE 1 TAKE 1 capsule Hospita CAPSULE BY CAPSULE BY TAKE 1 l MOUTH TWICE MOUTH TWICE CAPSULE BY Clinics A DAY A DAY MOUTH TWICE A DAY famotidine famotidine No famotidine [facility] 20 mg 20 mg 20 mg Communi tablet TAKE tablet TAKE tablet ty 1 TABLET BY 1 TABLET BY TAKE 1 Hospita MOUTH EVERY MOUTH EVERY TABLET BY l DAY DAY MOUTH Clinics EVERY DAY gabapentin gabapentin No gabapentin [facility] 100 mg 100 mg 100 mg Communi capsule capsule capsule ty TAKE 1 TAKE 1 TAKE 1 Hospita CAPSULE BY CAPSULE BY CAPSULE BY l MOUTH AT MOUTH AT MOUTH AT Cli nics BEDTIME BEDTIME BEDTIME glipizide glipizide No glipizide [facility] ER 2.5 mg ER 2.5 mg ER 2.5 mg Communi tablet, tablet, tablet, ty extended extended extended [facility] release 24 release 24 release 24 l hr TAKE 2 hr TAKE 2 hr TAKE 2 Clinics TABLETS (5 TABLETS (5 TABLETS (5 MG) BY MG) BY MG) BY MOUTH DAILY MOUTH DAILY MOUTH WITH WITH DAILY WITH BREAKFAST BREAKFAST BREAKFAST Humatrope 6 Humatrope 6 No Humatrope [facility] mg (18 mg (18 6 mg (18 Communi unit) unit) unit) ty injection injection injection [facility] cartridge cartridge cartridge l INJECT INJECT INJECT [facility] 0.3MG 0.3MG 0.3MG SUBCUTANEOU SUBCUTANEOU SUBCUTANEO SLY ONCE A SLY ONCE A USLY ONCE DAY. DAY. A DAY. hydrocodone hydrocodone No hydrocodon [facility] 5 5 e 5 Communi mg-acetamin mg-acetamin mg-acetami ty ophen 325 ophen 325 nophen 325 Hospita mg tablet mg tablet mg tablet l Clinics hydrocortis hydrocortis No hydrocorti [facility] one 20 mg one 20 mg sone 20 mg Communi tablet TAKE tablet TAKE tablet ty 1 TABLET BY 1 TABLET BY TAKE 1 Hospita MOUTH WITH MOUTH WITH TABLET BY l BREAKFAST, BREAKFAST, MOUTH WITH Clinics THEN TAKE 2 THEN TAKE 2 BREAKFAST, TABLETS TABLETS THEN TAKE WITH WITH 2 TABLETS DINNER. DINNER. WITH DINNER. hydrocortis hydrocortis No hydrocorti [facility] one 5 mg one 5 mg sone 5 mg Co m[facility]i tablet TAKE tablet TAKE tablet ty 3 TABLETS 3 TABLETS TAKE 3 [facility] BY MOUTH BY MOUTH TABLETS BY l EVERY EVERY MOUTH Clinics MORNING AND MORNING AND EVERY TAKE 1 TAKE 1 MORNING TABLET BY TABLET BY AND TAKE 1 MOUTH EVERY MOUTH EVERY TABLET BY EVENING EVENING MOUTH EVERY EVENING isosorbide isosorbide No isosorbide [facility] mononitrate mononitrate mononitrat Communi ER 30 mg ER 30 mg e ER 30 mg t y tablet,exte tablet,exte tablet,ext Hospita nded nded ended l release 24 release 24 release 24 Clinics hr TAKE 1 hr TAKE 1 hr TAKE 1 TABLET BY TABLET BY TABLET BY MOUTH EVERY MOUTH EVERY MOUTH DAY DAY EVERY DAY Klor-Con 10 Klor-Con 10 No Klor-Con [facility] mEq mEq 10 mEq Communi tablet,exte tablet,exte tablet,ext ty nded nded ended Hospita release release release l TAKE 1 TAKE 1 TAKE 1 Clinics TABLET BY TABLET BY TABLET BY MOUTH EVERY MOUTH EVERY MOUTH DAY WITH DAY WITH EVERY DAY FOOD FOOD WITH FOOD levothyroxi levothyroxi No levothyrox [facility] ne 112 mcg ne 112 mcg ine 112 Communi tablet TAKE tablet TAKE mcg tablet ty 1 TABLET BY 1 TABLET BY TAKE 1 Hospita MOUTH EVERY MOUTH EVERY TABLET BY l DAY DAY MOUTH Clinics EVERY DAY lidocaine 5 lidocaine 5 No lidocaine [facility] % topical % topical 5 % Commu ni patch APPLY patch APPLY topical ty 1 PATCH BY 1 PATCH BY patch Ho spita TOPICAL TOPICAL APPLY 1 l ROUTE ONCE ROUTE ONCE PATCH BY Clinics DAILY (MAY DAILY (MAY TOPICAL WEAR UP TO WEAR UP TO ROUTE ONCE 12HOURS.) 12HOURS.) DAILY (MAY WEAR UP TO 12HOURS.) liothyronin liothyronin No liothyroni [facility] e 5 mcg e 5 mcg ne 5 mcg Commu ni tablet TAKE tablet TAKE tablet ty 2 TABS 2 TABS TAKE 2 Hospita TUES, TUES, TABS TUES, l THURS, SAT, THURS, SAT, THURS, Clinics SUN. TAKE 1 SUN. TAKE 1 SAT, SUN. TAB MON, TAB MON, TAKE 1 TAB WED, FRI TUE, FRI TUE, WED, HALF HOUR HALF HOUR FRI HALF BEFORE BEFORE HOUR BREAKFAST BREAKFAST BEFORE WITH WATER WITH WATER BREAKFAST WITH WATER losartan 50 losartan 50 No losartan [facility] mg tablet mg tablet 50 mg Comm uni TAKE 1 TAKE 1 tablet ty TABLET BY TABLET BY TAKE 1 [facility] MOUTH EVERY MOUTH EVERY TABLET BY l DAY FOR 90 DAY FOR 90 MOUTH Cl inics DAYS DAYS EVERY DAY FOR 90 DAYS mirtazapine mirtazapine No mirtazapin [facility] 15 mg 15 mg e 15 mg Communi tablet TAKE tablet TAKE tablet ty 1 TABLET BY 1 TABLET BY TAKE 1 Hospita MOUTH MOUTH TABLET BY l EVERYDAY AT EVERYDAY AT MOUTH Clinics BEDTIME BEDTIME EVERYDAY AT BEDTIME mupirocin 2 mupirocin 2 No mupirocin [facility] % topical % topical 2 % Commu ni ointment ointment topical ty APPLY A APPLY A ointment Hospi ta SMALL SMALL APPLY A l AMOUNT TO AMOUNT TO SMALL Clin ics THE THE AMOUNT TO AFFECTED AFFECTED THE AREA BY AREA BY AFFECTED TOPICAL TOPICAL AREA BY ROUTE UP TO ROUTE UP TO TOPICAL 3 TIMES PER 3 TIMES PER ROUTE UP DAY DAY TO 3 TIMES NEEDED NEEDED PER DAY NEEDED nitroglycer nitroglycer No 1 nitroglyce [facility] in 0.4 mg in 0.4 mg rin 0.4 mg Communi sublingual sublingual sublingual ty tablet tablet tablet Hospita Place [address] 1 l tablet as tablet as tablet as Clinics needed by needed by needed by sublingual sublingual sublingual route. route. route. omeprazole omeprazole No omeprazole [facility] 40 mg 40 mg 40 mg Communi capsule,del capsule,del capsule,de ty ayed ayed layed Hospita release release release l TAKE 1 TAKE 1 TAKE 1 Clinics CAPSULE BY CAPSULE BY CAPSULE BY MOUTH EVERY MOUTH EVERY MOUTH MORNING MORNING EVERY MORNING OneTouch OneTouch No OneTouch Swe madeleine Delica Plus Del[facility] Plus Delica Communi Lancet 30 Lancet 30 Plus ty gauge TEST gauge TEST Lancet 30 Hospita TWICE A DAY TWICE A DAY gauge TEST l TWICE A Clinics DAY OneTouch OneTouch No OneTouch Swe madeleine Verio Flex Verio Flex Verio Flex Communi Meter FOR Meter FOR Meter FOR ty TESTING.1 TESTING.1 TESTING.1 Hospita BOX ICD 10 BOX ICD 10 BOX ICD 10 l E11.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.65 Clinics OneTouch OneTouch No OneTouch Swe madeleine Verio test Verio test Verio test Communi strips TEST strips TEST strips ty TWICE A DAY TWICE A DAY TEST TWICE Hospita A DAY l Clinics potassium potassium No potassium [facility] chloride ER chloride ER chloride Communi 20 mEq 20 mEq ER 20 mEq ty tablet,exte tablet,exte tablet,ext Hospita nded nded ended l release(par release(par release(in Clinics t/cryst) t/cryst) rt/cryst) TAKE 1 TAKE 1 TAKE 1 TABLET BY TABLET BY TABLET BY MOUTH EVERY MOUTH EVERY MOUTH DAY DAY EVERY DAY Santyl 250 Santyl 250 No Santyl 250 [facility] unit/gram unit/gram unit/gram Communi topical topical topical ty ointment ointment ointment [facility] APPLY A APPLY A APPLY A l DIONY DIONY DIONY [facility] THICK THICK THICK AMOUNT TO AMOUNT TO AMOUNT TO WOUND 3 WOUND 3 WOUND 3 TIMES A TIMES A TIMES A WEEK WEEK WEEK sotalol 160 sotalol 160 No sotalol [facility] mg tablet mg tablet 160 mg Com raz TAKE 1 TAKE 1 tablet ty TABLET BY TABLET BY TAKE 1 [facility] MOUTH EVERY MOUTH EVERY TABLET BY l 12 HOURS 12 HOURS MOUTH Clinic s FOR 90 DAYS FOR 90 DAYS EVERY 12 HOURS FOR 90 DAYS sotalol 80 sotalol 80 No sotalol 80 [facility] mg tablet mg tablet mg tablet Communi TAKE 1 TAKE 1 TAKE 1 ty TABLET BY TABLET BY TABLET BY Hospita MOUTH EVERY MOUTH EVERY MOUTH l DAY DAY EVERY DAY Clinics tramadol 50 tramadol 50 No tramadol [facility] mg tablet mg tablet 50 mg Comm uni TAKE 1 TAKE 1 tablet ty TABLET BY TABLET BY TAKE 1 Hos [facility] MOUTH EVERY MOUTH EVERY TABLET BY l 12 HOURS 12 HOURS MOUTH Clinics NEEDED FOR NEEDED FOR EVERY 12 PAIN PAIN HOURS NEEDED FOR PAIN amlodipine amlodipine No amlodipine [facility] 5 mg tablet 5 mg tablet 5 mg C [facility]i 1 po qd 1 po qd tablet 1 ty po qd [facility] atorvastati atorvastati No atorvastat [facility] n 40 mg n 40 mg in 40 mg Commu ni tablet 1 PO tablet 1 PO tablet 1 ty qd qd PO qd [facility] cholecalcif cholecalcif No cholecalci [facility] ghada ghada ferol [place] (vitamin (vitamin (vitamin ty D3) 1,250 D3) 1,250 D3) 1,250 [facility] mcg (50,000 mcg (50,000 mcg l unit) unit) (50,000 Clinics capsule capsule unit) TAKE 1 TAKE 1 capsule CAPSULE CAPSULE TAKE 1 EVERY 15 EVERY 15 CAPSULE DAYS DAYS EVERY 15 DAYS clonazepam clonazepam No clonazepam [facility] 0.5 mg 0.5 mg 0.5 mg Communi tablet TAKE tablet TAKE tablet ty 1 TABLET BY 1 TABLET BY TAKE 1 Hospita MOUTH TWICE MOUTH TWICE TABLET BY l A DAY A DAY MOUTH Clinic s DIRECTED DIRECTED TWICE A DAY DIRECTED Dexilant 60 Dexilant 60 No Dexilant [facility] mg capsule, mg capsule, 60 mg Communi delayed delayed capsule, ty release 1 release 1 delayed Ho spita po qd po qd release 1 l po qd Clinics docusate docusate No docusate Swe [facility] sodium 100 sodium 100 sodium 100 Communi mg capsule mg capsule mg capsule ty TAKE 1 TAKE 1 TAKE 1 Hospita CAPSULE BY CAPSULE BY CAPSULE BY l MOUTH EVERY MOUTH EVERY MOUTH Clinics DAY DAY EVERY DAY fenofibrate fenofibrate No fenofibrat [facility] nanocrystal nanocrystal e C om[facility]i lized 145 lized 145 nanocrysta ty mg tablet mg tablet llized 145 Hospita TAKE 1 TAKE 1 mg tablet l TABLET BY TABLET BY TAKE 1 Cli nics MOUTH EVERY MOUTH EVERY TABLET BY DAY DAILY DAY DAILY MOUTH ORALLY 90 ORALLY 90 EVERY DAY DAILY ORALLY 90 glipizide glipizide No glipizide [facility] ER 2.5 mg ER 2.5 mg ER 2.5 mg Communi tablet, tablet, tablet, ty extended extended extended [facility] release 24 release 24 release 24 l hr TAKE 2 hr TAKE 2 hr TAKE 2 Clinics TABLETS BY TABLETS BY TABLETS BY MOUTH TUES MOUTH TUES MOUTH TUES THURS SAT THURS SAT THURS SAT SUN AND 1 SUN AND 1 SUN AND 1 TAB Tue TAB Tue TAB Tue FRI hydrocortis hydrocortis No hydrocorti [facility] one 20 mg one 20 mg sone 20 mg Communi tablet TAKE tablet TAKE tablet ty 1 TAB AND A 1 TAB AND A TAKE 1 TAB Hospita HALF IN AM HALF IN AM AND A HALF l AND 1 TAB AND 1 TAB IN AM AND Clinics AND A HALF AND A HALF 1 TAB AND IN PM IN PM A HALF IN PM Klor-Con 10 Klor-Con 10 No Klor-Con [facility] mEq mEq 10 mEq Communi tablet,exte tablet,exte tablet,ext ty nded nded ended Hospita release 1 release 1 release 1 l po qd po qd po qd Clinics levothyroxi levothyroxi No levothyrox [facility] ne 112 mcg ne 112 mcg ine 112 Communi tablet tablet mcg tablet ty [facility] levothyroxi levothyroxi No levothyrox [facility] ne 125 mcg ne 125 mcg ine 125 Communi tablet 1 po tablet 1 po mcg tablet ty qd qd 1 po qd [facility] liothyronin liothyronin No liothyroni [facility] e 5 mcg e 5 mcg ne 5 mcg Commu ni tablet 2 tablet 2 tablet 2 ty TABS [facility], [facility]S [facility], [facility], THURS, SAT, THURS, l SUN. TAKE 1 SUN. TAKE 1 SAT, SUN. Clinics TAB MON, TAB MON, TAKE 1 TAB WED, FRI TUE, FRI TUE, TUE, HALF HOUR HALF HOUR FRI HALF BEFORE BEFORE HOUR BREAKFAST BREAKFAST BEFORE WITH WATER WITH WATER BREAKFAST WITH WATER losartan losartan No losartan Swe [facility] 100 mg 100 mg 100 mg Communi tablet 1 po tablet 1 po tablet 1 ty qd qd po qd [facility] losartan 50 losartan 50 No losartan [facility] mg tablet mg tablet 50 mg Comm uni tablet ty [facility] methscopola methscopola No methscopol [facility] mine 5 mg mine 5 mg amine 5 mg Communi tablet TAKE tablet TAKE tablet ty 1 TABLET BY 1 TABLET BY TAKE 1 [facility] MOUTH EVERY MOUTH EVERY TABLET BY l DAY DAY MOUTH Clinics EVERY DAY nitroglycer nitroglycer No 1 nitroglyce [facility] in 0.4 mg in 0.4 mg rin 0.4 mg Communi sublingual sublingual sublingual ty tablet tablet tablet [facility] Place [address] 1 l tablet as tablet as tablet as Clinics needed by needed by needed by sublingual sublingual sublingual route. route. route. Omnitrope 5 Omnitrope 5 No Omnitrope [facility] mg/1.5 mL mg/1.5 mL 5 mg/1.5 C [facility]i (3.3 mg/mL) (3.3 mg/mL) mL (3.3 ty subcutaneou subcutaneou mg/mL) [facility] s cartridge s cartridge subcutaneo l 1 SC daily 1 SC daily us Cli nics cartridge 1 SC daily OneTouch OneTouch No OneTouch Swe madeleine Delica Delica Delica Communi Lancets 30 Lancets 30 Lancets 30 ty gauge TEST gauge TEST gauge TEST [facility] TWICE A DAY TWICE A DAY TWICE A l DAY Clinics OneTouch OneTouch No OneTouch Swe madeleine Verio Flex Verio Flex Verio Flex Communi Meter FOR Meter FOR Meter FOR ty TESTING.1 TESTING.1 TESTING.1 Hospita BOX ICD 10 BOX ICD 10 BOX ICD 10 l E11.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.65 Clinics OneTouch OneTouch No OneTouch Swe madeleine Verio test Verio test Verio test Communi strips TEST strips TEST strips ty TWICE A DAY TWICE A DAY TEST TWICE Hospita A DAY [facility] sotalol 160 sotalol 160 No sotalol [facility] mg tablet 1 mg tablet 1 160 mg Communi po bid po bid tablet 1 ty po bid [facility] sotalol 80 sotalol 80 No sotalol 80 [facility] mg tablet mg tablet mg tablet Communi ty [facility] warfarin 1 warfarin 1 No warfarin 1 [facility] mg tablet mg tablet mg tablet Communi ty [facility] warfarin 2 warfarin 2 No warfarin 2 [facility] mg tablet mg tablet mg tablet Communi TAKE 1 TAKE 1 TAKE 1 ty TABLET BY TABLET BY TABLET BY Hospita MOUTH EVERY MOUTH EVERY MOUTH l DAY DAY EVERY DAY Clinics warfarin warfarin No warfarin Swe [facility] 2.5 mg 2.5 mg 2.5 mg Communi tablet Take tablet Take tablet ty 1 tablet 1 tablet Take 1 Hospi ta every day every day tablet l by oral by oral every day Clin ics route. route. by oral route. amlodipine amlodipine No amlodipine [facility] 5 mg tablet 5 mg tablet 5 mg C [facility]i TAKE 1 TAKE 1 tablet ty TABLET BY TABLET BY TAKE 1 [facility] MOUTH EVERY MOUTH EVERY TABLET BY l DAY DAY MOUTH Clinics EVERY DAY atorvastati atorvastati No atorvastat [facility] n 40 mg n 40 mg in 40 mg Commu ni tablet TAKE tablet TAKE tablet ty 1 TABLET BY 1 TABLET BY TAKE 1 Hospita MOUTH EVERY MOUTH EVERY TABLET BY l DAY DAY MOUTH Clinics EVERY DAY BD BD No BD [facility] Ultra-Fine Ultra-Fine Ultra-Fine Communi Kalee Pen Kalee Pen Kalee Pen ty Needle 32 Needle 32 Needle 32 Hospita gauge x gauge x gauge x l " " " Clinics cholecalcif cholecalcif No cholecalci [facility] ghada ghada ferol Communi (vitamin (vitamin (vitamin ty D3) 1,250 D3) 1,250 D3) 1,250 Hospita mcg (50,000 mcg (50,000 mcg l unit) unit) (50,000 Clinics capsule capsule unit) TAKE 1 TAKE 1 capsule CAPSULE CAPSULE TAKE 1 EVERY 15 EVERY 15 CAPSULE DAYS DAYS EVERY 15 DAYS clonazepam clonazepam No clonazepam [facility] 0.5 mg 0.5 mg 0.5 mg Communi tablet TAKE tablet TAKE tablet ty 1 TABLET BY 1 TABLET BY TAKE 1 Hospita MOUTH TWICE MOUTH TWICE TABLET BY l A DAY A DAY MOUTH Clinic s DIRECTED DIRECTED TWICE A DAY DIRECTED Dexilant 60 Dexilant 60 No Dexilant [facility] mg capsule, mg capsule, 60 mg Communi delayed delayed capsule, ty release 1 release 1 delayed Ho spita po qd po qd release 1 l po qd Clinics docusate docusate No docusate Swe made[facility] sodium 100 sodium 100 sodium 100 Communi mg capsule mg capsule mg capsule ty TAKE 1 TAKE 1 TAKE 1 Hospita CAPSULE BY CAPSULE BY CAPSULE BY l MOUTH EVERY MOUTH EVERY MOUTH Clinics DAY DAY EVERY DAY fenofibrate fenofibrate No fenofibrat [facility] nanocrystal nanocrystal e C om[facility]i lized 145 lized 145 nanocrysta ty mg tablet mg tablet llized 145 Hospita TAKE 1 TAKE 1 mg tablet l TABLET BY TABLET BY TAKE 1 Cli nics MOUTH EVERY MOUTH EVERY TABLET BY DAY DAILY DAY DAILY MOUTH ORALLY 90 ORALLY 90 EVERY DAY DAILY ORALLY 90 glipizide glipizide No glipizide [facility] ER 2.5 mg ER 2.5 mg ER 2.5 mg Communi tablet, tablet, tablet, ty extended extended extended [facility] release 24 release 24 release 24 l hr TAKE 2 hr TAKE 2 hr TAKE 2 Clinics TABLETS BY TABLETS BY TABLETS BY MOUTH TUES MOUTH TUES MOUTH TUES THURS SAT THURS SAT THURS SAT SUN AND 1 SUN AND 1 SUN AND 1 TAB Tue TAB Tue TAB Tue FRI hydrocortis hydrocortis No hydrocorti [facility] one 20 mg one 20 mg sone 20 mg Communi tablet TAKE tablet TAKE tablet ty 1 TAB AND A 1 TAB AND A TAKE 1 TAB Hospita HALF IN AM HALF IN AM AND A HALF l AND 1 TAB AND 1 TAB IN AM AND Clinics AND A HALF AND A HALF 1 TAB AND IN PM IN PM A HALF IN PM Klor-Con 10 Klor-Con 10 No Klor-Con [facility] mEq mEq 10 mEq Communi tablet,exte tablet,exte tablet,ext ty nded nded ended [facility] release 1 release 1 release 1 l po qd po qd po qd [facility] levothyroxi levothyroxi No levothyrox [facility] ne 112 mcg ne 112 mcg ine 112 Communi tablet tablet mcg tablet ty [facility] levothyroxi levothyroxi No levothyrox [facility] ne 125 mcg ne 125 mcg ine 125 Communi tablet 1 po tablet 1 po mcg tablet ty qd qd 1 po qd [facility] liothyronin liothyronin No liothyroni [facility] e 5 mcg e 5 mcg ne 5 mcg Commu ni tablet 2 tablet 2 tablet 2 ty TABS TUES, TABS TUES, TABS TUES, Hospita THURS, SAT, THURS, SAT, THURS, l SUN. TAKE 1 SUN. TAKE 1 SAT, SUN. Clinics TAB MON, TAB MON, TAKE 1 TAB WED, FRI TUE, FRI TUE, WED, HALF HOUR HALF HOUR FRI HALF BEFORE BEFORE HOUR BREAKFAST BREAKFAST BEFORE WITH WATER WITH WATER BREAKFAST WITH WATER losartan losartan No losartan Swe [facility] 100 mg 100 mg 100 mg Communi tablet 1 po tablet 1 po tablet 1 ty qd qd po qd [facility] losartan 50 losartan 50 No losartan [facility] mg tablet mg tablet 50 mg Comm uni tablet ty [facility] methscopola methscopola No methscopol [facility] mine 5 mg mine 5 mg amine 5 mg Communi tablet TAKE tablet TAKE tablet ty 1 TABLET BY 1 TABLET BY TAKE 1 [facility] MOUTH EVERY MOUTH EVERY TABLET BY l DAY DAY MOUTH Clinics EVERY DAY nitroglycer nitroglycer No 1 nitroglyce [facility] in 0.4 mg in 0.4 mg rin 0.4 mg Communi sublingual sublingual sublingual ty tablet tablet tablet [facility] Place [address] 1 l tablet as tablet as tablet as Clinics needed by needed by needed by sublingual sublingual sublingual route. route. route. Omnitrope 5 Omnitrope 5 No Omnitrope [facility] mg/1.5 mL mg/1.5 mL 5 mg/1.5 C [facility] (3.3 mg/mL) (3.3 mg/mL) mL (3.3 ty subcutaneou subcutaneou mg/mL) [facility] s cartridge s cartridge subcutaneo l 1 SC daily 1 SC daily us Cli nics cartridge 1 SC daily OneTouch OneTouch No OneTouch Swe madeleine Delica Delica Delica Communi Lancets 30 Lancets 30 Lancets 30 ty gauge TEST gauge TEST gauge TEST Hospita TWICE A DAY TWICE A DAY TWICE A l DAY Clinics OneTouch OneTouch No OneTouch Swe madeleine Verio Flex Verio Flex Verio Flex Communi Meter FOR Meter FOR Meter FOR ty TESTING.1 TESTING.1 TESTING.1 Hospita BOX ICD 10 BOX ICD 10 BOX ICD 10 l E11.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.65 Clinics OneTouch OneTouch No OneTouch Swe madeleine Verio test Verio test Verio test Communi strips TEST strips TEST strips ty TWICE A DAY TWICE A DAY TEST TWICE Hospita A DAY [facility] sotalol 160 sotalol 160 No sotalol [facility] mg tablet 1 mg tablet 1 160 mg Communi po bid po bid tablet [facility] sotalol 80 No sotalol 80 [facility] mg tablet mg tablet mg tablet Communi ty [facility] Clin[facility] warfarin 1 warfarin 1 No warfarin 1 [facility] mg tablet mg tablet mg tablet Communi ty [facility] Clin[facility] warfarin 2 warfarin 2 No warfarin 2 [facility] mg tablet mg tablet mg tablet Communi TAKE 1 TAKE 1 TAKE 1 ty TABLET BY TABLET BY TABLET BY Hospita MOUTH EVERY MOUTH EVERY MOUTH l DAY DAY EVERY DAY Clinics warfarin warfarin No warfarin Swe [facility] 2.5 mg 2.5 mg 2.5 mg Communi tablet Take tablet Take tablet ty 1 tablet 1 tablet Take 1 Hospi ta every day every day tablet l by oral by oral every day Clin ics route. route. by oral route. amlodipine amlodipine No amlodipine [facility] 5 mg tablet 5 mg tablet 5 mg C om[facility]i TAKE 1 TAKE 1 tablet ty TABLET BY TABLET BY TAKE 1 [facility] MOUTH EVERY MOUTH EVERY TABLET BY l DAY DAY MOUTH Clinics EVERY DAY atorvastati atorvastati No atorvastat [facility] n 40 mg n 40 mg in 40 mg Commu ni tablet TAKE tablet TAKE tablet ty 1 TABLET BY 1 TABLET BY TAKE 1 Hospita MOUTH EVERY MOUTH EVERY TABLET BY l DAY DAY MOUTH Clinics EVERY DAY BD BD No BD [facility] Ultra-Fine Ultra-Fine Ultra-Fine Communi Kalee Pen Kalee Pen Kalee Pen ty Needle 32 Needle 32 Needle 32 Hospita gauge x gauge x gauge x l " " " Clinics cholecalcif cholecalcif No cholecalci [facility] ghada ghada ferol Communi (vitamin (vitamin (vitamin ty D3) 1,250 D3) 1,250 D3) 1,250 Hospita mcg (50,000 mcg (50,000 mcg l unit) unit) (50,000 Clinics capsule capsule unit) TAKE 1 TAKE 1 capsule CAPSULE CAPSULE TAKE 1 EVERY 15 EVERY 15 CAPSULE DAYS DAYS EVERY 15 DAYS clonazepam clonazepam No clonazepam [facility] 0.5 mg 0.5 mg 0.5 mg Communi tablet TAKE tablet TAKE tablet ty 1 TABLET BY 1 TABLET BY TAKE 1 Hospita MOUTH TWICE MOUTH TWICE TABLET BY l A DAY A DAY MOUTH Clinic s DIRECTED DIRECTED TWICE A DAY DIRECTED Dexilant 60 Dexilant 60 No Dexilant [facility] mg capsule, mg capsule, 60 mg Communi delayed delayed capsule, ty release 1 release 1 delayed Ho spita po qd po qd release 1 l po qd Clinics docusate docusate No docusate Swe made[facility] sodium 100 sodium 100 sodium 100 Communi mg capsule mg capsule mg capsule ty TAKE 1 TAKE 1 TAKE 1 Hospita CAPSULE BY CAPSULE BY CAPSULE BY l MOUTH EVERY MOUTH EVERY MOUTH Clinics DAY DAY EVERY DAY fenofibrate fenofibrate No fenofibrat [facility] nanocrystal nanocrystal e C ommuni lized 145 lized 145 nanocrysta ty mg tablet mg tablet llized 145 Hospita TAKE 1 TAKE 1 mg tablet l TABLET BY TABLET BY TAKE 1 Cli nics MOUTH EVERY MOUTH EVERY TABLET BY DAY DAILY DAY DAILY MOUTH ORALLY 90 ORALLY 90 EVERY DAY DAILY ORALLY 90 glipizide glipizide No glipizide [facility] ER 2.5 mg ER 2.5 mg ER 2.5 mg Communi tablet, tablet, tablet, ty extended extended extended [facility] release 24 release 24 release 24 l hr TAKE 2 hr TAKE 2 hr TAKE 2 Clinics TABLETS BY TABLETS BY TABLETS BY MOUTH TUES MOUTH TUES MOUTH TUES THURS SAT THURS SAT THURS SAT SUN AND 1 SUN AND 1 SUN AND 1 TAB Tue TAB Tue TAB MON Tue FRI hydrocortis hydrocortis No hydrocorti [facility] one 20 mg one 20 mg sone 20 mg Communi tablet TAKE tablet TAKE tablet ty 1 BID for 3 1 BID for 3 TAKE 1 BID [facility] days days for 3 days l [facility] Klor-Con 10 Klor-Con 10 No Klor-Con [facility] mEq mEq 10 mEq Communi tablet,exte tablet,exte tablet,ext ty nded nded ended Hospita release 1 release 1 release 1 l po qd po qd po qd Clinics levothyroxi levothyroxi No levothyrox [place] ne 112 mcg ne 112 mcg ine 112 Communi tablet tablet mcg tablet ty [facility] levothyroxi levothyroxi No levothyrox [place] ne 125 mcg ne 125 mcg ine 125 Communi tablet 1 po tablet 1 po mcg tablet ty qd qd 1 po qd [facility] liothyronin liothyronin No liothyroni [place] e 5 mcg e 5 mcg ne 5 mcg Commu ni tablet 2 tablet 2 tablet 2 ty TABS TUES, TABS TUES, TABS TUES, Hospita THURS, SAT, THURS, SAT, THURS, l SUN. TAKE 1 SUN. TAKE 1 SAT, SUN. Clinics TAB MON, TAB MON, TAKE 1 TAB WED, FRI WED, FRI MON, WED, HALF HOUR HALF HOUR FRI HALF BEFORE BEFORE HOUR BREAKFAST BREAKFAST BEFORE WITH WATER WITH WATER BREAKFAST WITH WATER losartan losartan No losartan [facility] 100 mg 100 mg 100 mg Communi tablet 1 po tablet 1 po tablet 1 ty qd qd po qd [facility] losartan 50 losartan 50 No losartan [place] mg tablet mg tablet 50 mg Comm uni tablet ty [facility] methscopola methscopola No methscopol [place] mine 5 mg mine 5 mg amine 5 mg Communi tablet TAKE tablet TAKE tablet ty 1 TABLET BY 1 TABLET BY TAKE 1 [facility] MOUTH EVERY MOUTH EVERY TABLET BY l DAY DAY MOUTH Clinics EVERY DAY nitroglycer nitroglycer No 1 nitroglyce [place] in 0.4 mg in 0.4 mg rin 0.4 mg Communi sublingual sublingual sublingual ty tablet tablet tablet [facility] Place [address] 1 l tablet as tablet as tablet as Clinics needed by needed by needed by sublingual sublingual sublingual route. route. route. Omnitrope 5 Omnitrope 5 No Omnitrope [place] mg/1.5 mL mg/1.5 mL 5 mg/1.5 [facility]i (3.3 mg/mL) (3.3 mg/mL) mL (3.3 ty subcutaneou subcutaneou mg/mL) [facility] cartridge s cartridge subcutaneo l 1 SC daily 1 SC daily us Cli nics cartridge 1 SC daily OneTouch OneTouch No OneTouch [facility] Delica Delica Delica Communi Lancets 30 Lancets 30 Lancets 30 ty gauge TEST gauge TEST gauge TEST Hospita TWICE A DAY TWICE A DAY TWICE A l DAY Clinics OneTouch OneTouch No OneTouch [facility] Verio Flex Verio Flex Verio Flex Communi Meter FOR Meter FOR Meter FOR ty TESTING.1 TESTING.1 TESTING.1 Hospita BOX ICD 10 BOX ICD 10 BOX ICD 10 l E11.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.65 Clinics OneTouch OneTouch No OneTouch [facility] made[facility] Verio test Verio test Verio test Communi strips TEST strips TEST strips ty TWICE A DAY TWICE A DAY TEST TWICE Hospita A DAY l Clinics sotalol 160 sotalol 160 No sotalol [place] mg tablet mg tablet 160 mg Com raz TAKE 1 TAKE 1 tablet ty TABLET BY TABLET BY TAKE 1 [facility] MOUTH TWICE MOUTH TWICE TABLET BY l A DAY A DAY MOUTH Clinics TWICE A DAY sotalol 80 sotalol 80 No sotalol 80 [place] mg tablet mg tablet mg tablet Communi ty [facility] tramadol 50 tramadol 50 No 1 Q6H tramadol [place] mg tablet mg tablet 50 mg Comm uni Take 1 Take 1 tablet ty tablet tablet Take 1 Hospita every 6 every 6 tablet l hours by hours by every 6 Clin ics oral route. oral route. hours by oral route. warfarin 1 warfarin 1 No warfarin 1 [place] mg tablet mg tablet mg tablet Communi ty [facility] warfarin 2 warfarin 2 No warfarin 2 [place] mg tablet mg tablet mg tablet Communi TAKE 1 TAKE 1 TAKE 1 ty TABLET BY TABLET BY TABLET BY Hospita MOUTH EVERY MOUTH EVERY MOUTH l DAY DAY EVERY DAY Clinics warfarin warfarin No warfarin [facility] 2.5 mg 2.5 mg 2.5 mg Communi tablet Take tablet Take tablet ty 1 tablet 1 tablet Take 1 Hospi ta every day every day tablet l by oral by oral every day Clin ics route. route. by oral route. amlodipine amlodipine No amlodipine [place] 5 mg tablet 5 mg tablet 5 mg C ommuni TAKE 1 TAKE 1 tablet ty TABLET BY TABLET BY TAKE 1 Hos mi[facility]ael MOUTH EVERY MOUTH EVERY TABLET BY l DAY DAY MOUTH Clinics EVERY DAY atorvastati atorvastati No atorvastat [place] n 40 mg n 40 mg in 40 mg Commu ni tablet TAKE tablet TAKE tablet ty 1 TABLET BY 1 TABLET BY TAKE 1 Hospita MOUTH EVERY MOUTH EVERY TABLET BY l DAY DAY MOUTH Clinics EVERY DAY BD BD No BD [place] Ultra-Fine Ultra-Fine Ultra-Fine Communi Kalee Pen Kalee Pen Kalee Pen ty Needle 32 Needle 32 Needle 32 Hospita gauge x gauge x gauge x l " " " Clinics cholecalcif cholecalcif No cholecalci [place] ghada ghada ferol Communi (vitamin (vitamin (vitamin ty D3) 1,250 D3) 1,250 D3) 1,250 Hospita mcg (50,000 mcg (50,000 mcg l unit) unit) (50,000 Clinics capsule capsule unit) TAKE 1 TAKE 1 capsule CAPSULE CAPSULE TAKE 1 EVERY 15 EVERY 15 CAPSULE DAYS DAYS EVERY 15 DAYS clonazepam clonazepam No clonazepam [place] 0.5 mg 0.5 mg 0.5 mg Communi tablet TAKE tablet TAKE tablet ty 1 TABLET BY 1 TABLET BY TAKE 1 Hospita MOUTH TWICE MOUTH TWICE TABLET BY l A DAY A DAY MOUTH Clinic s DIRECTED DIRECTED TWICE A DAY DIRECTED Dexilant 60 Dexilant 60 No Dexilant [place] mg capsule, mg capsule, 60 mg Communi delayed delayed capsule, ty release 1 release 1 delayed Ho spita po qd po qd release 1 l po qd Clinics docusate docusate No docusate [facility] sodium 100 sodium 100 sodium 100 Communi mg capsule mg capsule mg capsule ty TAKE 1 TAKE 1 TAKE 1 Hospita CAPSULE BY CAPSULE BY CAPSULE BY l MOUTH EVERY MOUTH EVERY MOUTH Clinics DAY DAY EVERY DAY fenofibrate fenofibrate No fenofibrat [place] nanocrystal nanocrystal e C ommuni lized 145 lized 145 nanocrysta ty mg tablet mg tablet llized 145 Hospita TAKE 1 TAKE 1 mg tablet l TABLET BY TABLET BY TAKE 1 Cli nics MOUTH EVERY MOUTH EVERY TABLET BY DAY DAY MOUTH EVERY DAY glipizide glipizide No glipizide [place] ER 2.5 mg ER 2.5 mg ER 2.5 mg Communi tablet, tablet, tablet, ty extended extended extended [facility] release 24 release 24 release 24 l hr TAKE 2 hr TAKE 2 hr TAKE 2 Clinics TABLETS BY TABLETS BY TABLETS BY MOUTH TUES MOUTH TUES MOUTH TUES THURS SAT THURS SAT THURS SAT SUN AND 1 SUN AND 1 SUN AND 1 TAB MON WED TAB MON WED TAB MON FRI FRI WED FRI hydrocortis hydrocortis No hydrocorti [place] one 20 mg one 20 mg sone 20 mg Communi tablet TAKE tablet TAKE tablet ty 1 BID for 3 1 BID for 3 TAKE 1 BID Hospita days days for 3 days l [facility] Klor-Con 10 Klor-Con 10 No Klor-Con [place] mEq mEq 10 mEq Communi tablet,exte tablet,exte tablet,ext ty nded nded ended Hospita release 1 release 1 release 1 l po qd po qd po qd [facility] levothyroxi levothyroxi No levothyrox [place] ne 112 mcg ne 112 mcg ine 112 Communi tablet tablet mcg tablet ty [facility] levothyroxi levothyroxi No levothyrox [place] ne 125 mcg ne 125 mcg ine 125 Communi tablet 1 po tablet 1 po mcg tablet ty qd qd 1 po qd [facility] liothyronin liothyronin No liothyroni [place] e 5 mcg e 5 mcg ne 5 mcg Commu ni tablet 2 tablet 2 tablet 2 ty TABS TUES, TABS TUES, TABS TUES, Hospita THURS, SAT, THURS, SAT, THURS, l SUN. TAKE 1 SUN. TAKE 1 SAT, SUN. Clinics TAB MON, TAB MON, TAKE 1 TAB WED, FRI TUE, FRI TUE, WED, HALF HOUR HALF HOUR FRI HALF BEFORE BEFORE HOUR BREAKFAST BREAKFAST BEFORE WITH WATER WITH WATER BREAKFAST WITH WATER losartan losartan No losartan [facility] 100 mg 100 mg 100 mg Communi tablet 1 po tablet 1 po tablet 1 ty qd qd po qd [facility] losartan 50 losartan 50 No losartan [place] mg tablet mg tablet 50 mg Comm uni tablet ty [facility] methscopola methscopola No methscopol [place] mine 5 mg mine 5 mg amine 5 mg Communi tablet TAKE tablet TAKE tablet ty 1 TABLET BY 1 TABLET BY TAKE 1 Hospita MOUTH EVERY MOUTH EVERY TABLET BY l DAY DAY MOUTH Clinics EVERY DAY nitroglycer nitroglycer No 1 nitroglyce [place] in 0.4 mg in 0.4 mg rin 0.4 mg Communi sublingual sublingual sublingual ty tablet tablet tablet [facility] [address] 1 l tablet as tablet as tablet as Clinics needed by needed by needed by sublingual sublingual sublingual route. route. route. Omnitrope 5 Omnitrope 5 No Omnitrope [place] mg/1.5 mL mg/1.5 mL 5 mg/1.5 [facility] (3.3 mg/mL) (3.3 mg/mL) mL (3.3 ty subcutaneou subcutaneou mg/mL) [facility] s cartridge s cartridge subcutaneo l 1 SC daily 1 SC daily us Cli nics cartridge 1 SC daily OneTouch OneTouch No OneTouch Swe madeleine Delica Delica Delica Communi Lancets 30 Lancets 30 Lancets 30 ty gauge TEST gauge TEST gauge TEST [facility] TWICE A DAY TWICE A DAY TWICE A l DAY Clinics OneTouch OneTouch No OneTouch Swe made[facility] Verio Flex Verio Flex Verio Flex Communi Meter FOR Meter FOR Meter FOR ty TESTING.1 TESTING.1 TESTING.1 [facility] BOX ICD 10 BOX ICD 10 BOX ICD 10 l E11.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.65 Clinics OneTouch OneTouch No OneTouch Swe made[facility] Verio test Verio test Verio test Communi strips TEST strips TEST strips ty TWICE A DAY TWICE A DAY TEST TWICE Hospita A DAY l Clinics sotalol 160 sotalol 160 No sotalol [place] mg tablet mg tablet 160 mg Com raz TAKE 1 TAKE 1 tablet ty TABLET BY TABLET BY TAKE 1 [facility] MOUTH TWICE MOUTH TWICE TABLET BY l A DAY A DAY MOUTH Clinics TWICE A DAY sotalol 80 sotalol 80 No sotalol 80 [place] mg tablet mg tablet mg tablet Communi ty [facility] Clinics tramadol 50 tramadol 50 No tramadol [place] mg tablet mg tablet 50 mg Comm uni Take 1 Take 1 tablet ty tablet tablet Take 1 Hospita every 6 every 6 tablet l hours by hours by every 6 Clin ics oral route. oral route. hours by oral route. warfarin 1 warfarin 1 No warfarin 1 [place] mg tablet mg tablet mg tablet Communi ty [facility] Clinics warfarin 2 warfarin 2 No warfarin 2 [place] mg tablet mg tablet mg tablet Communi TAKE 1 TAKE 1 TAKE 1 ty TABLET BY TABLET BY TABLET BY Hospita MOUTH EVERY MOUTH EVERY MOUTH l DAY DAY EVERY DAY Clinics warfarin warfarin No warfarin [facility] 2.5 mg 2.5 mg 2.5 mg Communi tablet Take tablet Take tablet ty 1 tablet 1 tablet Take 1 Hospi ta every day every day tablet l by oral by oral every day Clin ics route. route. by oral route. amlodipine amlodipine No amlodipine [place] 5 mg tablet 5 mg tablet 5 mg C om[facility]i TAKE 1 TAKE 1 tablet ty TABLET BY TABLET BY TAKE 1 [facility] MOUTH EVERY MOUTH EVERY TABLET BY l DAY DAY MOUTH Clinics EVERY DAY atorvastati atorvastati No atorvastat [place] n 40 mg n 40 mg in 40 mg Commu ni tablet TAKE tablet TAKE tablet ty 1 TABLET BY 1 TABLET BY TAKE 1 Hospita MOUTH EVERY MOUTH EVERY TABLET BY l DAY DAY MOUTH Clinics EVERY DAY BD BD No BD [place] Ultra-Fine Ultra-Fine Ultra-Fine Communi Kalee Pen Kalee Pen Kalee Pen ty Needle 32 Needle 32 Needle 32 Hospita gauge x gauge x gauge x l " " " Clinics cholecalcif cholecalcif No cholecalci [place] ghada ghada ferol Communi (vitamin (vitamin (vitamin ty D3) 1,250 D3) 1,250 D3) 1,250 Hospita mcg (50,000 mcg (50,000 mcg l unit) unit) (50,000 Clinics capsule capsule unit) TAKE 1 TAKE 1 capsule CAPSULE CAPSULE TAKE 1 EVERY 15 EVERY 15 CAPSULE DAYS DAYS EVERY 15 DAYS clonazepam clonazepam No clonazepam [place] 0.5 mg 0.5 mg 0.5 mg Communi tablet TAKE tablet TAKE tablet ty 1 TABLET BY 1 TABLET BY TAKE 1 Hospita MOUTH TWICE MOUTH TWICE TABLET BY l A DAY A DAY MOUTH Clinic s DIRECTED DIRECTED TWICE A DAY DIRECTED Dexilant 60 Dexilant 60 No Dexilant [place] mg capsule, mg capsule, 60 mg Communi delayed delayed capsule, ty release 1 release 1 delayed Ho spita po qd po qd release 1 l po qd Clinics docusate docusate No docusate [facility] sodium 100 sodium 100 sodium 100 Communi mg capsule mg capsule mg capsule ty TAKE 1 TAKE 1 TAKE 1 Hospita CAPSULE BY CAPSULE BY CAPSULE BY l MOUTH EVERY MOUTH EVERY MOUTH Clinics DAY DAY EVERY DAY fenofibrate fenofibrate No fenofibrat [place] nanocrystal nanocrystal e C ommuni lized 145 lized 145 nanocrysta ty mg tablet mg tablet llized 145 Hospita TAKE 1 TAKE 1 mg tablet l TABLET BY TABLET BY TAKE 1 Cli nics MOUTH EVERY MOUTH EVERY TABLET BY DAY DAY MOUTH EVERY DAY glipizide glipizide No glipizide [place] ER 2.5 mg ER 2.5 mg ER 2.5 mg Communi tablet, tablet, tablet, ty extended extended extended [facility] release 24 release 24 release 24 l hr TAKE 2 hr TAKE 2 hr TAKE 2 Clinics TABLETS BY TABLETS BY TABLETS BY MOUTH TUES MOUTH TUES MOUTH TUES THURS SAT THURS SAT THURS SAT SUN AND 1 SUN AND 1 SUN AND 1 TAB MON WED TAB MON WED TAB MON FRI Tue FRI hydrocortis hydrocortis No hydrocorti [place] one 20 mg one 20 mg sone 20 mg Communi tablet TAKE tablet TAKE tablet ty 1 BID for 3 1 BID for 3 TAKE 1 BID Hospita days days for 3 days l Clinics Klor-Con 10 Klor-Con 10 No Klor-Con [place] mEq mEq 10 mEq Communi tablet,exte tablet,exte tablet,ext ty nded nded ended Hospita release 1 release 1 release 1 l po qd po qd po qd [facility] levothyroxi levothyroxi No levothyrox [place] ne 112 mcg ne 112 mcg ine 112 Communi tablet [facility] lev[facility] No levothyrox [place] ne 125 mcg ne 125 mcg ine 125 Communi tablet 1 po tablet 1 po mcg tablet ty qd qd 1 po qd Hospita [facility] liothyronin liothyronin No liothyroni [place] e 5 mcg e 5 mcg ne 5 mcg Commu ni tablet 2 tablet 2 tablet 2 ty TABS TUES, TABS TUES, TABS TUES, Hospita THURS, SAT, THURS, SAT, THURS, l SUN. TAKE 1 SUN. TAKE 1 SAT, SUN. Clinics TAB MON, TAB MON, TAKE 1 TAB WED, FRI TUE, FRI TUE, TUE, HALF HOUR HALF HOUR FRI HALF BEFORE BEFORE HOUR BREAKFAST BREAKFAST BEFORE WITH WATER WITH WATER BREAKFAST WITH WATER losartan losartan No losartan [facility] 100 mg 100 mg 100 mg Communi tablet 1 po tablet 1 po tablet 1 ty qd qd po qd Hospita [facility] losartan 50 losartan 50 No losartan [place] mg tablet mg tablet 50 mg Comm uni tablet ty Hospita l Clinics methscopola methscopola No methscopol [place] mine 5 mg mine 5 mg amine 5 mg Communi tablet TAKE tablet TAKE tablet ty 1 TABLET BY 1 TABLET BY TAKE 1 Hospita MOUTH EVERY MOUTH EVERY TABLET BY l DAY DAY MOUTH Clinics EVERY DAY nitroglycer nitroglycer No 1 nitroglyce [place] in 0.4 mg in 0.4 mg rin 0.4 mg Communi sublingual sublingual sublingual ty tablet tablet tablet Hospita Place [address] 1 l tablet as tablet as tablet as Clinics needed by needed by needed by sublingual sublingual sublingual route. route. route. Omnitrope 5 Omnitrope 5 No Omnitrope [place] mg/1.5 mL mg/1.5 mL 5 mg/1.5 C [facility]i (3.3 mg/mL) (3.3 mg/mL) mL (3.3 ty subcutaneou subcutaneou mg/mL) [facility] cartridge s cartridge subcutaneo l 1 SC daily 1 SC daily us Cli nics cartridge 1 SC daily OneTouch OneTouch No OneTouch Swe madeleine Delica Delica Delica Communi Lancets 30 Lancets 30 Lancets 30 ty gauge TEST gauge TEST gauge TEST [facility] TWICE A DAY TWICE A DAY TWICE A l DAY Clinics OneTouch OneTouch No OneTouch Swe made[facility] Verio Flex Verio Flex Verio Flex Communi Meter FOR Meter FOR Meter FOR ty TESTING.1 TESTING.1 TESTING.1 Hospita BOX ICD 10 BOX ICD 10 BOX ICD 10 l E11.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.65 Clinics OneTouch OneTouch No OneTouch Swe made[facility] Verio test Verio test Verio test Communi strips TEST strips TEST strips ty TWICE A DAY TWICE A DAY TEST TWICE Hospita A DAY Clinics sotalol 160 sotalol 160 No sotalol [place] mg tablet mg tablet 160 mg Com raz TAKE 1 TAKE 1 tablet ty TABLET BY TABLET BY TAKE 1 [facility] MOUTH TWICE MOUTH TWICE TABLET BY l A DAY A DAY MOUTH Clinics TWICE A DAY sotalol 80 sotalol 80 No sotalol 80 [place] mg tablet mg tablet mg tablet Communi ty [facility] Clinics tramadol 50 tramadol 50 No tramadol [place] mg tablet mg tablet 50 mg Comm uni Take 1 Take 1 tablet ty tablet tablet Take 1 Hospita every 6 every 6 tablet l hours by hours by every 6 Clin ics oral route. oral route. hours by oral route. warfarin 1 warfarin 1 No warfarin 1 [place] mg tablet mg tablet mg tablet Communi ty Hospita l Clinics warfarin 2 warfarin 2 No warfarin 2 [place] mg tablet mg tablet mg tablet Communi TAKE 1 TAKE 1 TAKE 1 ty TABLET BY TABLET BY TABLET BY Hospita MOUTH EVERY MOUTH EVERY MOUTH l DAY DAY EVERY DAY Clinics warfarin warfarin No warfarin [facility] 2.5 mg 2.5 mg 2.5 mg Communi tablet Take tablet Take tablet ty 1 tablet 1 tablet Take 1 Hospi ta every day every day tablet l by oral by oral every day Clin ics route. route. by oral route. amlodipine amlodipine No amlodipine [place] 5 mg tablet 5 mg tablet 5 mg C om[facility]i TAKE 1 TAKE 1 tablet ty TABLET BY TABLET BY TAKE 1 [facility] MOUTH EVERY MOUTH EVERY TABLET BY l DAY DAY MOUTH Clinics EVERY DAY atorvastati atorvastati No atorvastat [place] n 40 mg n 40 mg in 40 mg Commu ni tablet TAKE tablet TAKE tablet ty 1 TABLET BY 1 TABLET BY TAKE 1 Hospita MOUTH EVERY MOUTH EVERY TABLET BY l DAY DAY MOUTH Clinics EVERY DAY BD BD No BD [place] Ultra-Fine Ultra-Fine Ultra-Fine Communi Kalee Pen Kalee Pen Kalee Pen ty Needle 32 Needle 32 Needle 32 Hospita gauge x gauge x gauge x l " " " Clinics cholecalcif cholecalcif No cholecalci [place] ghada ghada ferol [place] (vitamin (vitamin (vitamin ty D3) 1,250 D3) 1,250 D3) 1,250 Hospita mcg (50,000 mcg (50,000 mcg l unit) unit) (50,000 Clinics capsule capsule unit) TAKE 1 TAKE 1 capsule CAPSULE CAPSULE TAKE 1 EVERY 15 EVERY 15 CAPSULE DAYS DAYS EVERY 15 DAYS clonazepam clonazepam No clonazepam [place] 0.5 mg 0.5 mg 0.5 mg Communi tablet TAKE tablet TAKE tablet ty 1 TABLET BY 1 TABLET BY TAKE 1 Hospita MOUTH TWICE MOUTH TWICE TABLET BY l A DAY A DAY MOUTH Clinic s DIRECTED DIRECTED TWICE A PRn PRn DAY DIRECTED PRn Dexilant 60 Dexilant 60 No Dexilant [place] mg capsule, mg capsule, 60 mg Communi delayed delayed capsule, ty release 1 release 1 delayed Ho spita po qd po qd release 1 l po qd Clinics docusate docusate No docusate [facility] sodium 100 sodium 100 sodium 100 Communi mg capsule mg capsule mg capsule ty TAKE 1 TAKE 1 TAKE 1 Hospita CAPSULE BY CAPSULE BY CAPSULE BY l MOUTH EVERY MOUTH EVERY MOUTH Clinics DAY DAY EVERY DAY fenofibrate fenofibrate No fenofibrat [place] nanocrystal nanocrystal e C ommuni lized 145 lized 145 nanocrysta ty mg tablet mg tablet llized 145 Hospita TAKE 1 TAKE 1 mg tablet l TABLET BY TABLET BY TAKE 1 Cli nics MOUTH EVERY MOUTH EVERY TABLET BY DAY DAY MOUTH EVERY DAY glipizide glipizide No glipizide [place] ER 2.5 mg ER 2.5 mg ER 2.5 mg Communi tablet, tablet, tablet, ty extended extended extended [facility] release 24 release 24 release 24 l hr TAKE 2 hr TAKE 2 hr TAKE 2 Clinics TABLETS BY TABLETS BY TABLETS BY MOUTH TUES MOUTH TUES MOUTH TUES THURS SAT THURS SAT THURS SAT SUN AND 1 SUN AND 1 SUN AND 1 TAB Tue TAB Tue TAB Tue FRI hydrocortis hydrocortis No hydrocorti [place] one 20 mg one 20 mg sone 20 mg Communi tablet TAKE tablet TAKE tablet ty 1 BID for 3 1 BID for 3 TAKE 1 BID Hospita days days for 3 days [facility] Klor-Con 10 Klor-Con 10 No Klor-Con [place] mEq mEq 10 mEq Communi tablet,exte tablet,exte tablet,ext ty nded nded ended Hospita release 1 release 1 release 1 l po qd po qd po qd [facility] levothyroxi levothyroxi No levothyrox [place] ne 125 mcg ne 125 mcg ine 125 Communi tablet 1 po tablet 1 po mcg tablet ty qd qd 1 po qd Hospita Clinics lidocaine 5 lidocaine 5 No lidocaine [place] % topical % topical 5 % Commu ni patch APPLY patch APPLY topical ty 1 PATCH BY 1 PATCH BY patch Ho spita TOPICAL TOPICAL APPLY 1 l ROUTE ONCE ROUTE ONCE PATCH BY Clinics DAILY (MAY DAILY (MAY TOPICAL WEAR UP TO WEAR UP TO ROUTE ONCE 12HOURS.) 12HOURS.) DAILY (MAY WEAR UP TO 12HOURS.) liothyronin liothyronin No liothyroni [place] e 5 mcg e 5 mcg ne 5 mcg Commu ni tablet 2 tablet 2 tablet 2 ty TABS TUES, TABS TUES, TABS TUES, Hospita THURS, SAT, THURS, SAT, THURS, l SUN. TAKE 1 SUN. TAKE 1 SAT, SUN. Clinics TAB MON, TAB MON, TAKE 1 TAB WED, FRI WED, FRI MON, WED, HALF HOUR HALF HOUR FRI HALF BEFORE BEFORE HOUR BREAKFAST BREAKFAST BEFORE WITH WATER WITH WATER BREAKFAST WITH WATER losartan losartan No losartan [facility] 100 mg 100 mg 100 mg Communi tablet 1 po tablet 1 po tablet 1 ty qd qd po qd [facility] Clinics methscopola methscopola No methscopol [place] mine 5 mg mine 5 mg amine 5 mg Communi tablet TAKE tablet TAKE tablet ty 1 TABLET BY 1 TABLET BY TAKE 1 [facility] MOUTH EVERY MOUTH EVERY TABLET BY l DAY DAY MOUTH Clinics EVERY DAY nitroglycer nitroglycer No 1 nitroglyce [place] in 0.4 mg in 0.4 mg rin 0.4 mg Communi sublingual sublingual sublingual ty tablet tablet tablet Hospita Place [address] 1 l tablet as tablet as tablet as Clinics needed by needed by needed by sublingual sublingual sublingual route. route. route. Omnitrope 5 Omnitrope 5 No Omnitrope [place] mg/1.5 mL mg/1.5 mL 5 mg/1.5 C om[facility]i (3.3 mg/mL) (3.3 mg/mL) mL (3.3 ty subcutaneou subcutaneou mg/mL) [facility] s cartridge s cartridge subcutaneo l 1 SC daily 1 SC daily us Cli nics cartridge 1 SC daily OneTouch OneTouch No OneTouch Swe made[facility] Delica Delica Delica Communi Lancets 30 Lancets 30 Lancets 30 ty gauge TEST gauge TEST gauge TEST [facility] TWICE A DAY TWICE A DAY TWICE A l DAY Clinics OneTouch OneTouch No OneTouch Swe made[facility] Verio Flex Verio Flex Verio Flex Communi Meter FOR Meter FOR Meter FOR ty TESTING.1 TESTING.1 TESTING.1 Hospita BOX ICD 10 BOX ICD 10 BOX ICD 10 l E11.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.65 Clinics OneTouch OneTouch No OneTouch Swe made[facility] Verio test Verio test Verio test Communi strips TEST strips TEST strips ty TWICE A DAY TWICE A DAY TEST TWICE Hospita A DAY l Clinics sotalol 160 sotalol 160 No sotalol [place] mg tablet mg tablet 160 mg Com raz TAKE 1 TAKE 1 tablet ty TABLET BY TABLET BY TAKE 1 [facility] MOUTH TWICE MOUTH TWICE TABLET BY l A DAY A DAY MOUTH Clinics TWICE A DAY tramadol 50 tramadol 50 No tramadol [place] mg tablet mg tablet 50 mg Comm uni Take 1 Take 1 tablet ty tablet tablet Take 1 Hospita every 6 every 6 tablet l hours by hours by every 6 Clin ics oral route. oral route. hours by oral route. warfarin 1 warfarin 1 No warfarin 1 [place] mg tablet mg tablet mg tablet Communi Takes MWF Takes MWF Takes MWF ty Hospita l Clinics warfarin 2 warfarin 2 No warfarin 2 [place] mg tablet mg tablet mg tablet Communi TAKE 1 TAKE 1 TAKE 1 ty TABLET BY TABLET BY TABLET BY Hospita MOUTH EVERY MOUTH EVERY MOUTH l DAY DAY EVERY DAY Clinics amlodipine amlodipine No amlodipine [place] 5 mg tablet 5 mg tablet 5 mg C om[facility]i TAKE 1 TAKE 1 tablet ty TABLET BY TABLET BY TAKE 1 [facility] MOUTH EVERY MOUTH EVERY TABLET BY l DAY DAY MOUTH Clinics EVERY DAY atorvastati atorvastati No atorvastat [place] n 40 mg n 40 mg in 40 mg Commu ni tablet TAKE tablet TAKE tablet ty 1 TABLET BY 1 TABLET BY TAKE 1 Hospita MOUTH EVERY MOUTH EVERY TABLET BY l DAY DAY MOUTH Clinics EVERY DAY BD BD No BD [place] Ultra-Fine Ultra-Fine Ultra-Fine Communi Kalee Pen Kalee Pen Kalee Pen ty Needle 32 Needle 32 Needle 32 Hospita gauge x gauge x gauge x l " " " Clinics cholecalcif cholecalcif No cholecalci [place] ghada ghada ferol [place] (vitamin (vitamin (vitamin ty D3) 1,250 D3) 1,250 D3) 1,250 Hospita mcg (50,000 mcg (50,000 mcg l unit) unit) (50,000 Clinics capsule capsule unit) TAKE 1 TAKE 1 capsule CAPSULE CAPSULE TAKE 1 EVERY 15 EVERY 15 CAPSULE DAYS DAYS EVERY 15 DAYS clonazepam clonazepam No clonazepam [place] 0.5 mg 0.5 mg 0.5 mg Communi tablet TAKE tablet TAKE tablet ty 1 TABLET BY 1 TABLET BY TAKE 1 Hospita MOUTH TWICE MOUTH TWICE TABLET BY l A DAY A DAY MOUTH Clinic s DIRECTED DIRECTED TWICE A PRn PRn DAY DIRECTED PRn Dexilant 60 Dexilant 60 No Dexilant [place] mg capsule, mg capsule, 60 mg Communi delayed delayed capsule, ty release 1 release 1 delayed Ho spita po qd po qd release 1 l po qd [facility] docusate docusate No docusate Swe [facility] sodium 100 sodium 100 sodium 100 Communi mg capsule mg capsule mg capsule ty TAKE 1 TAKE 1 TAKE 1 Hospita CAPSULE BY CAPSULE BY CAPSULE BY l MOUTH EVERY MOUTH EVERY MOUTH Clinics DAY DAY EVERY DAY fenofibrate fenofibrate No fenofibrat [place] nanocrystal nanocrystal e C ommuni lized 145 lized 145 nanocrysta ty mg tablet mg tablet llized 145 Hospita TAKE 1 TAKE 1 mg tablet l TABLET BY TABLET BY TAKE 1 Cli nics MOUTH EVERY MOUTH EVERY TABLET BY DAY DAY MOUTH EVERY DAY glipizide glipizide No glipizide [place] ER 2.5 mg ER 2.5 mg ER 2.5 mg Communi tablet, tablet, tablet, ty extended extended extended [facility] release 24 release 24 release 24 l hr TAKE 2 hr TAKE 2 hr TAKE 2 Clinics TABLETS BY TABLETS BY TABLETS BY MOUTH TUES MOUTH TUES MOUTH TUES THURS SAT THURS SAT THURS SAT SUN AND 1 SUN AND 1 SUN AND 1 TAB Tue TAB Tue TAB Tue FRI hydrocortis hydrocortis No hydrocorti [place] one 20 mg one 20 mg sone 20 mg Communi tablet TAKE tablet TAKE tablet ty 1 BID for 3 1 BID for 3 TAKE 1 BID Hospita days days for 3 days [facility] Klor-Con 10 Klor-Con 10 No Klor-Con [place] mEq mEq 10 mEq Communi tablet,exte tablet,exte tablet,ext ty nded nded ended Hospita release 1 release 1 release 1 l po qd po qd po qd [facility] levothyroxi levothyroxi No levothyrox [place] ne 112 mcg ne 112 mcg ine 112 Communi tablet tablet mcg tablet ty Hospita [facility] levothyroxi levothyroxi No levothyrox [place] ne 125 mcg ne 125 mcg ine 125 Communi tablet 1 po tablet 1 po mcg tablet ty qd qd 1 po qd Hospita [facility] lidocaine 5 lidocaine 5 No lidocaine [place] % topical % topical 5 % Commu ni patch APPLY patch APPLY topical ty 1 PATCH BY 1 PATCH BY patch Ho spita TOPICAL TOPICAL APPLY 1 l ROUTE ONCE ROUTE ONCE PATCH BY Clinics DAILY (MAY DAILY (MAY TOPICAL WEAR UP TO WEAR UP TO ROUTE ONCE 12HOURS.) 12HOURS.) DAILY (MAY WEAR UP TO 12HOURS.) liothyronin liothyronin No liothyroni [place] e 5 mcg e 5 mcg ne 5 mcg Commu ni tablet 2 tablet 2 tablet 2 ty TABS TUES, TABS TUES, TABS TUES, Hospita THURS, SAT, THURS, SAT, THURS, l SUN. TAKE 1 SUN. TAKE 1 SAT, SUN. Clinics TAB MON, TAB MON, TAKE 1 TAB TUE, FRI TUE, FRI MON, WED, HALF HOUR HALF HOUR FRI HALF BEFORE BEFORE HOUR BREAKFAST BREAKFAST BEFORE WITH WATER WITH WATER BREAKFAST WITH WATER losartan losartan No losartan [facility] 100 mg 100 mg 100 mg Communi tablet 1 po tablet 1 po tablet 1 ty qd qd po qd [facility] methscopola methscopola No methscopol [place] mine 5 mg mine 5 mg amine 5 mg Communi tablet TAKE tablet TAKE tablet ty 1 TABLET BY 1 TABLET BY TAKE 1 Hospita MOUTH EVERY MOUTH EVERY TABLET BY l DAY DAY MOUTH Clinics EVERY DAY nitroglycer nitroglycer No 1 nitroglyce [facility] in 0.4 mg in 0.4 mg rin 0.4 mg Communi sublingual sublingual sublingual ty tablet tablet tablet [facility] [address] 1 l tablet as tablet as tablet as Clinics needed by needed by needed by sublingual sublingual sublingual route. route. route. Omnitrope 5 Omnitrope 5 No Omnitrope [facility] mg/1.5 mL mg/1.5 mL 5 mg/1.5 C ommuni (3.3 mg/mL) (3.3 mg/mL) mL (3.3 ty subcutaneou subcutaneou mg/mL) [facility] cartridge s cartridge subcutaneo l 1 SC daily 1 SC daily us Cli nics cartridge 1 SC daily OneTouch OneTouch No OneTouch [facility] Delica Delica Delica Communi Lancets 30 Lancets 30 Lancets 30 ty gauge TEST gauge TEST gauge TEST [facility] TWICE A DAY TWICE A DAY TWICE A l DAY Clinics OneTouch OneTouch No OneTouch [facility] Verio Flex Verio Flex Verio Flex Communi Meter FOR Meter FOR Meter FOR ty TESTING.1 TESTING.1 TESTING.1 Hospita BOX ICD 10 BOX ICD 10 BOX ICD 10 l E11.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.65 Clinics OneTouch OneTouch No OneTouch [facility] Verio test Verio test Verio test Communi strips TEST strips TEST strips ty TWICE A DAY TWICE A DAY TEST TWICE Hospita A DAY l Clinics sotalol 160 sotalol 160 No sotalol [place] mg tablet mg tablet 160 mg Com raz TAKE 1 TAKE 1 tablet ty TABLET BY TABLET BY TAKE 1 [facility] MOUTH TWICE MOUTH TWICE TABLET BY l A DAY A DAY MOUTH Clinics TWICE A DAY tramadol 50 tramadol 50 No 1 Q6H tramadol [facility] mg tablet mg tablet 50 mg Comm uni Take 1 Take 1 tablet ty tablet tablet Take 1 Hospita every 6 every 6 tablet l hours by hours by every 6 Clin ics oral route. oral route. hours by oral route. warfarin 1 warfarin 1 No warfarin 1 [facility] mg tablet mg tablet mg tablet Communi Takes MWF Takes MWF Takes MWF ty Hospita l Clinics warfarin 2 warfarin 2 No warfarin 2 [facility] mg tablet mg tablet mg tablet Communi TAKE 1 TAKE 1 TAKE 1 ty TABLET BY TABLET BY TABLET BY Hospita MOUTH EVERY MOUTH EVERY MOUTH l DAY DAY EVERY DAY Clinics acetaminoph acetaminoph No acetaminop [facility] en 300 en 300 hen 300 Communi mg-codeine mg-codeine mg-codeine ty 30 mg 30 mg 30 mg Hospita tablet Take tablet Take tablet l 1 tablet 1 tablet Take 1 Clini cs Q4-6 hr PRN Q4-6 hr PRN tablet for pain for pain Q4-6 hr PRN for pain amlodipine amlodipine No amlodipine [facility] 5 mg tablet 5 mg tablet 5 mg C ommuni TAKE 1 TAKE 1 tablet ty TABLET BY TABLET BY TAKE 1 [facility] MOUTH EVERY MOUTH EVERY TABLET BY l DAY DAY MOUTH Clinics EVERY DAY atorvastati atorvastati No atorvastat [facility] n 40 mg n 40 mg in 40 mg Commu ni tablet TAKE tablet TAKE tablet ty 1 TABLET BY 1 TABLET BY TAKE 1 Hospita MOUTH EVERY MOUTH EVERY TABLET BY l DAY DAY MOUTH Clinics EVERY DAY BD BD No BD [place] Ultra-Fine Ultra-Fine Ultra-Fine Communi Kalee Pen Kalee Pen Kalee Pen ty Needle 32 Needle 32 Needle 32 Hospita gauge x gauge x gauge x l " " " Clinics cholecalcif cholecalcif No cholecalci [facility] ghada ghada ferol Communi (vitamin (vitamin (vitamin ty D3) 1,250 D3) 1,250 D3) 1,250 Hospita mcg (50,000 mcg (50,000 mcg l unit) unit) (50,000 Clinics capsule capsule unit) TAKE 1 TAKE 1 capsule CAPSULE CAPSULE TAKE 1 EVERY 15 EVERY 15 CAPSULE DAYS DAYS EVERY 15 DAYS cholestyram cholestyram No cholestyra [facility] ine (with ine (with mine (with Communi sugar) 4 sugar) 4 sugar) 4 ty gram powder gram powder gram H ospita for susp in for susp in powder for l a packet a packet susp in a Cl inics TAKE 2 TAKE 2 packet PACKETS BY PACKETS BY TAKE 2 MOUTH AT MOUTH AT PACKETS BY BEDTIME BEDTIME MOUTH AT DIRECTED DIRECTED BEDTIME DIRECTED clonazepam clonazepam No clonazepam [facility] 0.5 mg 0.5 mg 0.5 mg Communi tablet TAKE tablet TAKE tablet ty 1 TABLET BY 1 TABLET BY TAKE 1 Hospita MOUTH TWICE MOUTH TWICE TABLET BY l A DAY A DAY MOUTH Clinic s DIRECTED DIRECTED TWICE A PRn PRn DAY DIRECTED PRn Dexilant 60 Dexilant 60 No Dexilant [facility] mg capsule, mg capsule, 60 mg Communi delayed delayed capsule, ty release release delayed Hospit a TAKE 1 TAKE 1 release l CAPSULE BY CAPSULE BY TAKE 1 C linics MOUTH DAILY MOUTH DAILY CAPSULE BY NEEDS NEEDS MOUTH OFFICE OFFICE DAILY VISIT FOR VISIT FOR NEEDS ADDITIONAL ADDITIONAL OFFICE REFILLS REFILLS VISIT FOR ADDITIONAL REFILLS diphenoxyla diphenoxyla No diphenoxyl [facility] te-atropine te-atropine ate-atropi Communi 2.5 2.5 ne 2.5 ty mg-0.025 mg mg-0.025 mg mg-0.025 Hospita tablet tablet mg tablet l Clinics docusate docusate No docusate [facility] sodium 100 sodium 100 sodium 100 Communi mg capsule mg capsule mg capsule ty TAKE 1 TAKE 1 TAKE 1 Hospita CAPSULE BY CAPSULE BY CAPSULE BY l MOUTH EVERY MOUTH EVERY MOUTH Clinics DAY DAY EVERY DAY fenofibrate fenofibrate No fenofibrat [place] nanocrystal nanocrystal e C ommuni lized 145 lized 145 nanocrysta ty mg tablet mg tablet llized 145 Hospita TAKE 1 TAKE 1 mg tablet l TABLET BY TABLET BY TAKE 1 Cli nics MOUTH EVERY MOUTH EVERY TABLET BY DAY DAY MOUTH EVERY DAY glipizide glipizide No glipizide [facility] ER 2.5 mg ER 2.5 mg ER 2.5 mg Communi tablet, tablet, tablet, ty extended extended extended [facility] release 24 release 24 release 24 l hr TAKE 2 hr TAKE 2 hr TAKE 2 Clinics TABLETS BY TABLETS BY TABLETS BY MOUTH TUES MOUTH TUES MOUTH TUES THURS SAT THURS SAT THURS SAT SUN AND 1 SUN AND 1 SUN AND 1 TAB Tue TAB Tue TAB Tue FRI hydrocortis hydrocortis No hydrocorti [place] one 20 mg one 20 mg sone 20 mg Communi tablet TAKE tablet TAKE tablet ty 1 BID for 3 1 BID for 3 TAKE 1 BID Hospita days days for 3 days l [facility] Klor-Con 10 Klor-Con 10 No Klor-Con [place] mEq mEq 10 mEq Communi tablet,exte tablet,exte tablet,ext ty nded nded ended Hospita release 1 release 1 release 1 l po qd po qd po qd [facility] levothyroxi levothyroxi No levothyrox [place] ne 112 mcg ne 112 mcg ine 112 Communi tablet tablet mcg tablet ty Hospita [facility] levothyroxi levothyroxi No levothyrox [place] ne 125 mcg ne 125 mcg ine 125 Communi tablet 1 po tablet 1 po mcg tablet [facility]d [facility] lidocaine 5 No lidocaine [place] % topical % topical 5 % Commu ni patch APPLY patch APPLY topical ty 1 PATCH BY 1 PATCH BY patch Ho spita TOPICAL TOPICAL APPLY 1 l ROUTE ONCE ROUTE ONCE PATCH BY Clinics DAILY (MAY DAILY (MAY TOPICAL WEAR UP TO WEAR UP TO ROUTE ONCE 12HOURS.) 12HOURS.) DAILY (MAY WEAR UP TO 12HOURS.) liothyronin liothyronin No liothyroni [facility] e 5 mcg e 5 mcg ne 5 mcg Commu ni tablet 2 tablet 2 tablet 2 ty TABS TUES, TABS TUES, TABS TUES, Hospita THURS, SAT, THURS, SAT, THURS, l SUN. TAKE 1 SUN. TAKE 1 SAT, SUN. Clinics TAB MON, TAB MON, TAKE 1 TAB TUE, FRI WED, FRI MON, WED, HALF HOUR HALF HOUR FRI HALF BEFORE BEFORE HOUR BREAKFAST BREAKFAST BEFORE WITH WATER WITH WATER BREAKFAST WITH WATER losartan losartan No losartan [facility] 100 mg 100 mg 100 mg Communi tablet 1 po tablet 1 po tablet 1 ty qd qd po qd [facility] Clinics methscopola methscopola No methscopol [place] mine 5 mg mine 5 mg amine 5 mg Communi tablet TAKE tablet TAKE tablet ty 1 TABLET BY 1 TABLET BY TAKE 1 [facility] MOUTH EVERY MOUTH EVERY TABLET BY l DAY DAY MOUTH Clinics EVERY DAY nitroglycer nitroglycer No 1 nitroglyce [facility] in 0.4 mg in 0.4 mg rin 0.4 mg Communi sublingual sublingual sublingual ty tablet tablet tablet [facility] [address] 1 l tablet as tablet as tablet as Clinics needed by needed by needed by sublingual sublingual sublingual route. route. route. Omnitrope 5 Omnitrope 5 No Omnitrope [facility] mg/1.5 mL mg/1.5 mL 5 mg/1.5 C ommuni (3.3 mg/mL) (3.3 mg/mL) mL (3.3 ty subcutaneou subcutaneou mg/mL) [facility] s cartridge s cartridge subcutaneo l 1 SC daily 1 SC daily us Cli nics cartridge 1 SC daily OneTouch OneTouch No OneTouch [facility] Delica Delica Delica Communi Lancets 30 Lancets 30 Lancets 30 ty gauge TEST gauge TEST gauge TEST [facility] TWICE A DAY TWICE A DAY TWICE A l DAY Clinics OneTouch OneTouch No OneTouch [facility] Verio Flex Verio Flex Verio Flex Communi Meter FOR Meter FOR Meter FOR ty TESTING.1 TESTING.1 TESTING.1 Hospita BOX ICD 10 BOX ICD 10 BOX ICD 10 l E11.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.65 Clinics OneTouch OneTouch No OneTouch [facility] Verio test Verio test Verio test Communi strips TEST strips TEST strips ty TWICE A DAY TWICE A DAY TEST TWICE Hospita A DAY l Clinics sotalol 160 sotalol 160 No sotalol [facility] mg tablet mg tablet 160 mg Com raz TAKE 1 TAKE 1 tablet ty TABLET BY TABLET BY TAKE 1 Hos [facility] MOUTH TWICE MOUTH TWICE TABLET BY l A DAY A DAY MOUTH Clinics TWICE A DAY tramadol 50 tramadol 50 No tramadol [facility] mg tablet mg tablet 50 mg Comm uni TAKE 1 TAKE 1 tablet ty TABLET TABLET TAKE 1 Hospita EVERY 6 EVERY 6 TABLET l HOURS BY HOURS BY EVERY 6 Clin ics ORAL ROUTE. ORAL ROUTE. HOURS BY ORAL ROUTE. warfarin 1 warfarin 1 No warfarin 1 [facility] mg tablet mg tablet mg tablet Communi Takes MWF Takes MWF Takes MWF ty Hospita l Clinics warfarin 2 warfarin 2 No warfarin 2 [facility] mg tablet mg tablet mg tablet Communi TAKE 1 TAKE 1 TAKE 1 ty TABLET BY TABLET BY TABLET BY Hospita MOUTH EVERY MOUTH EVERY MOUTH l DAY DAY EVERY DAY Clinics amlodipine amlodipine No amlodipine [facility] 5 mg tablet 5 mg tablet 5 mg C ommuni TAKE 1 TAKE 1 tablet ty TABLET BY TABLET BY TAKE 1 Hos [facility] MOUTH EVERY MOUTH EVERY TABLET BY l DAY DAY MOUTH Clinics EVERY DAY atorvastati atorvastati No atorvastat [facility] n 40 mg n 40 mg in 40 mg Commu ni tablet TAKE tablet TAKE tablet ty 1 TABLET BY 1 TABLET BY TAKE 1 Hospita MOUTH EVERY MOUTH EVERY TABLET BY l DAY DAY MOUTH Clinics EVERY DAY BD Kalee 2nd BD Kalee 2nd No BD Kalee [facility] Gen Pen Gen Pen 2nd Gen Commun i Needle 32 Needle 32 Pen Needle ty gauge x gauge x 32 gauge x Hos [facility]ichael 32" 1 32" 1 " 1 l TIME A DAY TIME A DAY TIME A DAY Clinics cholecalcif cholecalcif No cholecalci [facility] ghada ghada ferol [place] (vitamin (vitamin (vitamin ty D3) 1,250 D3) 1,250 D3) 1,250 Hospita mcg (50,000 mcg (50,000 mcg l unit) unit) (50,000 Clinics capsule capsule unit) TAKE 1 TAKE 1 capsule CAPSULE CAPSULE TAKE 1 EVERY 15 EVERY 15 CAPSULE DAYS DAYS EVERY 15 DAYS clonazepam clonazepam No clonazepam [facility] 0.5 mg 0.5 mg 0.5 mg Communi tablet TAKE tablet TAKE tablet ty 1 TABLET BY 1 TABLET BY TAKE 1 Hospita MOUTH TWICE MOUTH TWICE TABLET BY l A DAY A DAY MOUTH Clinic s DIRECTED DIRECTED TWICE A PRn PRn DAY DIRECTED PRn Eliquis 5 Eliquis 5 No Eliquis 5 [facility] mg tablet mg tablet mg tablet Communi TAKE 1 TAKE 1 TAKE 1 ty TABLET BY TABLET BY TABLET BY Hospita MOUTH 2 MOUTH 2 MOUTH 2 l (TWO) TIMES (TWO) TIMES (TWO) Clinics DAILY. DAILY. TIMES INDICATIONS INDICATIONS DAILY. ATRIAL ATRIAL INDICATION FIBRILLATIO FIBRILLATIO S ATRIAL N N FIBRILLATI ON fenofibrate fenofibrate No fenofibrat [facility] nanocrystal nanocrystal e C ommuni lized 145 lized 145 nanocrysta ty mg tablet mg tablet llized 145 Hospita TAKE 1 TAKE 1 mg tablet l TABLET BY TABLET BY TAKE 1 Cli nics MOUTH EVERY MOUTH EVERY TABLET BY DAY DAY MOUTH EVERY DAY Humatrope 6 Humatrope 6 No Humatrope [facility] mg (18 mg (18 6 mg (18 Communi unit) unit) unit) ty injection injection injection Hospita cartridge cartridge cartridge l inject 0.2 inject 0.2 inject 0.2 Clinics ml SQ daily ml SQ daily ml SQ daily hydrocortis hydrocortis No hydrocorti [facility] one 20 mg one 20 mg sone 20 mg Communi tablet TAKE tablet TAKE tablet ty 1 TAB AND A 1 TAB AND A TAKE 1 TAB Hospita HALF IN AM HALF IN AM AND A HALF l AND 1 TAB AND 1 TAB IN AM AND Clinics AND A HALF AND A HALF 1 TAB AND IN PM IN PM A HALF IN PM isosorbide isosorbide No isosorbide [facility] mononitrate mononitrate mononitrat Communi ER 30 mg ER 30 mg e ER 30 mg t y tablet,exte tablet,exte tablet,ext Hospita nded nded ended l release 24 release 24 release 24 Clinics hr TAKE 1 hr TAKE 1 hr TAKE 1 TABLET BY TABLET BY TABLET BY MOUTH EVERY MOUTH EVERY MOUTH DAY DAY EVERY DAY Klor-Con 10 Klor-Con 10 No Klor-Con [facility] mEq mEq 10 mEq Communi tablet,exte tablet,exte tablet,ext ty nded nded ended Hospita release release release l TAKE 1 TAKE 1 TAKE 1 Clinics TABLET BY TABLET BY TABLET BY MOUTH EVERY MOUTH EVERY MOUTH DAY WITH DAY WITH EVERY DAY FOOD FOOD WITH FOOD levothyroxi levothyroxi No levothyrox [facility] ne 112 mcg ne 112 mcg ine 112 Communi tablet 1 tablet 1 mcg tablet t y TAB DAILY TAB DAILY 1 TAB Hosp meryl 1/2 HR. 1/2 HR. DAILY 1/2 l BEFORE BEFORE HR. BEFORE Clini cs BREAKFAST BREAKFAST BREAKFAST WITH WATER WITH WATER WITH WATER losartan losartan No losartan [facility] 100 mg 100 mg 100 mg Communi tablet 1 po tablet 1 po tablet 1 ty qd qd po qd [facility] mirtazapine mirtazapine No mirtazapin [facility] 15 mg 15 mg e 15 mg Communi tablet TAKE tablet TAKE tablet ty 1 TABLET BY 1 TABLET BY TAKE 1 Hospita MOUTH MOUTH TABLET BY l EVERYDAY AT EVERYDAY AT MOUTH Clinics BEDTIME BEDTIME EVERYDAY AT BEDTIME nitroglycer nitroglycer No 1 nitroglyce [facility] in 0.4 mg in 0.4 mg rin 0.4 mg Communi sublingual sublingual sublingual ty tablet tablet tablet Hospita Place [address] 1 l tablet as tablet as tablet as Clinics needed by needed by needed by sublingual sublingual sublingual route. route. route. OneTouch OneTouch No OneTouch [facility] Delica Delica Delica Communi Lancets 30 Lancets 30 Lancets 30 ty gauge TEST gauge TEST gauge TEST [facility] TWICE A DAY TWICE A DAY TWICE A l DAY Clinics OneTouch OneTouch No OneTouch Swe [facility] Verio Flex Verio Flex Verio Flex Communi Meter FOR Meter FOR Meter FOR ty TESTING.1 TESTING.1 TESTING.1 [facility] BOX ICD 10 BOX ICD 10 BOX ICD 10 l E11.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.65 Clinics OneTouch OneTouch No OneTouch Swe made[facility] Verio test Verio test Verio test Communi strips TEST strips TEST strips ty TWICE A DAY TWICE A DAY TEST TWICE Hospita A DAY [facility] Santyl 250 Santyl 250 No Santyl 250 [facility] unit/gram unit/gram unit/gram Communi topical topical topical ty ointment ointment ointment [facility] APPLY A APPLY A APPLY A l DIONY DIONY DIONY Clinics THICK THICK THICK AMOUNT TO AMOUNT TO AMOUNT TO WOUND 3 WOUND 3 WOUND 3 TIMES A TIMES A TIMES A WEEK WEEK WEEK simvastatin simvastatin No simvastati [facility] 40 mg 40 mg n 40 mg Communi tablet TAKE tablet TAKE tablet ty 1 TABLET 1 TABLET TAKE 1 Hospi ta (40 MG) BY (40 MG) BY TABLET (40 l MOUTH DAILY MOUTH DAILY MG) BY Clinics IN THE IN THE MOUTH EVENING NOT EVENING NOT DAILY IN TAKING TAKING THE EVENING NOT TAKING sotalol 160 sotalol 160 No sotalol [facility] mg tablet mg tablet 160 mg Com raz TAKE 1 TAKE 1 tablet ty TABLET BY TABLET BY TAKE 1 [facility] MOUTH EVERY MOUTH EVERY TABLET BY l DAY DAY MOUTH Clinics EVERY DAY tramadol 50 tramadol 50 No tramadol [facility] mg tablet mg tablet 50 mg Comm uni TAKE 1 TAKE 1 tablet ty TABLET TABLET TAKE 1 Hospita EVERY 6 EVERY 6 TABLET l HOURS BY HOURS BY EVERY 6 Clin ics ORAL ROUTE. ORAL ROUTE. HOURS BY ORAL ROUTE. amlodipine amlodipine No amlodipine [facility] 5 mg tablet 5 mg tablet 5 mg C ommuni TAKE 1 TAKE 1 tablet ty TABLET BY TABLET BY TAKE 1 [facility] MOUTH EVERY MOUTH EVERY TABLET BY l DAY DAY MOUTH Clinics EVERY DAY atorvastati atorvastati No atorvastat [facility] n 40 mg n 40 mg in 40 mg Commu ni tablet TAKE tablet TAKE tablet ty 1 TABLET BY 1 TABLET BY TAKE 1 Hospita MOUTH EVERY MOUTH EVERY TABLET BY l DAY DAY MOUTH Clinics EVERY DAY BD Kalee 2nd BD Kalee 2nd No BD Kalee [facility] Gen Pen Gen Pen 2nd Gen Commun i Needle 32 Needle 32 Pen Needle ty gauge x gauge x 32 gauge x Hos michael " 1 " 1 " 1 l TIME A DAY TIME A DAY TIME A DAY Clinics cholecalcif cholecalcif No cholecalci [facility] ghada ghada ferol Communi (vitamin (vitamin (vitamin ty D3) 1,250 D3) 1,250 D3) 1,250 Hospita mcg (50,000 mcg (50,000 mcg l unit) unit) (50,000 Clinics capsule capsule unit) TAKE 1 TAKE 1 capsule CAPSULE CAPSULE TAKE 1 EVERY 15 EVERY 15 CAPSULE DAYS DAYS EVERY 15 DAYS clonazepam clonazepam No clonazepam [facility] 0.5 mg 0.5 mg 0.5 mg Communi tablet TAKE tablet TAKE tablet ty 1 TABLET BY 1 TABLET BY TAKE 1 Hospita MOUTH TWICE MOUTH TWICE TABLET BY l A DAY A DAY MOUTH Clinic s DIRECTED DIRECTED TWICE A PRn PRn DAY DIRECTED PRn dicyclomine dicyclomine No 1capsul TID dicyclomin [facility] 10 mg 10 mg e(s) e 10 mg Communi capsule capsule capsule ty Take 1 Take 1 Take 1 Hospita capsule 3 capsule 3 capsule 3 l times a day times a day times a Clinics by oral by oral day by route as route as oral route needed. needed. as needed. doxycycline doxycycline No 1capsul BID doxycyclin [facility] hyclate 100 hyclate 100 e(s) e hyclate Communi mg capsule mg capsule 100 mg t y Take 1 Take 1 capsule Hospita capsule capsule Take 1 l twice a day twice a day capsule Clinics by oral by oral twice a route. route. day by oral route. Eliquis 5 Eliquis 5 No Eliquis 5 [facility] mg tablet mg tablet mg tablet Communi TAKE 1 TAKE 1 TAKE 1 ty TABLET BY TABLET BY TABLET BY Hospita MOUTH 2 MOUTH 2 MOUTH 2 l (TWO) TIMES (TWO) TIMES (TWO) Clinics DAILY. DAILY. TIMES INDICATIONS INDICATIONS DAILY. ATRIAL ATRIAL INDICATION FIBRILLATIO FIBRILLATIO S ATRIAL N N FIBRILLATI ON Humatrope 6 Humatrope 6 No Humatrope [facility] mg (18 mg (18 6 mg (18 Communi unit) unit) unit) ty injection injection injection [facility] cartridge cartridge cartridge l inject 0.2 inject 0.2 inject 0.2 Clinics ml SQ daily ml SQ daily ml SQ daily hydrocortis hydrocortis No hydrocorti [facility] one 20 mg one 20 mg sone 20 mg Communi tablet TAKE tablet TAKE tablet ty 1 TAB AND A 1 TAB AND A TAKE 1 TAB Hospita HALF IN AM HALF IN AM AND A HALF l AND 1 TAB AND 1 TAB IN AM AND Clinics AND A HALF AND A HALF 1 TAB AND IN PM IN PM A HALF IN PM isosorbide isosorbide No isosorbide [facility] mononitrate mononitrate mononitrat Communi ER 30 mg ER 30 mg e ER 30 mg t y tablet,exte tablet,exte tablet,ext Hospita nded nded ended l release 24 release 24 release 24 Clinics hr TAKE 1 hr TAKE 1 hr TAKE 1 TABLET BY TABLET BY TABLET BY MOUTH EVERY MOUTH EVERY MOUTH DAY DAY EVERY DAY Klor-Con 10 Klor-Con 10 No Klor-Con [facility] mEq mEq 10 mEq Communi tablet,exte tablet,exte tablet,ext ty nded nded ended Hospita release release release l TAKE 1 TAKE 1 TAKE 1 Clinics TABLET BY TABLET BY TABLET BY MOUTH EVERY MOUTH EVERY MOUTH DAY WITH DAY WITH EVERY DAY FOOD FOOD WITH FOOD levothyroxi levothyroxi No levothyrox [facility] ne 112 mcg ne 112 mcg ine 112 Communi tablet 1 tablet 1 mcg tablet t y TAB DAILY TAB DAILY 1 TAB Hosp [facility]yl 1/2 HR. 1/2 HR. DAILY 1/2 l BEFORE BEFORE HR. BEFORE Clini cs BREAKFAST BREAKFAST BREAKFAST WITH WATER WITH WATER WITH WATER losartan losartan No losartan [facility] 100 mg 100 mg 100 mg Communi tablet 1 po tablet 1 po tablet 1 ty qd qd po qd [facility] mirtazapine mirtazapine No mirtazapin [facility] 15 mg 15 mg e 15 mg Communi tablet TAKE tablet TAKE tablet ty 1 TABLET BY 1 TABLET BY TAKE 1 Hospita MOUTH MOUTH TABLET BY l EVERYDAY AT EVERYDAY AT MOUTH Clinics BEDTIME BEDTIME EVERYDAY AT BEDTIME nitroglycer nitroglycer No 1 nitroglyce [facility] in 0.4 mg in 0.4 mg rin 0.4 mg Communi sublingual sublingual sublingual ty tablet tablet tablet Hospita Place [address] 1 l tablet as tablet as tablet as Clinics needed by needed by needed by sublingual sublingual sublingual route. route. route. OneTouch OneTouch No OneTouch Swe made[facility] Delica Delica Delica Communi Lancets 30 Lancets 30 Lancets 30 ty gauge TEST gauge TEST gauge TEST [facility] TWICE A DAY TWICE A DAY TWICE A l DAY Clinics OneTouch OneTouch No OneTouch Swe [facility] Verio Flex Verio Flex Verio Flex Communi Meter FOR Meter FOR Meter FOR ty TESTING.1 TESTING.1 TESTING.1 Hospita BOX ICD 10 BOX ICD 10 BOX ICD 10 l E11.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.65 Clinics OneTouch OneTouch No OneTouch Swe made[facility] Verio test Verio test Verio test Communi strips TEST strips TEST strips ty TWICE A DAY TWICE A DAY TEST TWICE Hospita A DAY [facility] Santyl 250 Santyl 250 No Santyl 250 [place] unit/gram unit/gram unit/gram Communi topical topical topical ty ointment ointment ointment [facility] APPLY A APPLY A APPLY A l DIONY DIONY DIONY Clinics THICK THICK THICK AMOUNT TO AMOUNT TO AMOUNT TO WOUND 3 WOUND 3 WOUND 3 TIMES A TIMES A TIMES A WEEK WEEK WEEK simvastatin simvastatin No simvastati [facility] 40 mg 40 mg n 40 mg Communi tablet TAKE tablet TAKE tablet ty 1 TABLET 1 TABLET TAKE 1 Hospi ta (40 MG) BY (40 MG) BY TABLET (40 l MOUTH DAILY MOUTH DAILY MG) BY Clinics IN THE IN THE MOUTH EVENING NOT EVENING NOT DAILY IN TAKING TAKING THE EVENING NOT TAKING sotalol 160 sotalol 160 No sotalol [facility] mg tablet mg tablet 160 mg Com raz TAKE 1 TAKE 1 tablet ty TABLET BY TABLET BY TAKE 1 [facility] MOUTH EVERY MOUTH EVERY TABLET BY l DAY DAY MOUTH Clinics EVERY DAY tramadol 50 tramadol 50 No tramadol [facility] mg tablet mg tablet 50 mg Comm uni TAKE 1 TAKE 1 tablet ty TABLET BY TABLET BY TAKE 1 [facility] MOUTH EVERY MOUTH EVERY TABLET BY l 6 HOURS 6 HOURS MOUTH Clinics EVERY 6 HOURS amlodipine amlodipine No amlodipine [facility] 5 mg tablet 5 mg tablet 5 mg C om[facility]i TAKE 1 TAKE 1 tablet ty TABLET BY TABLET BY TAKE 1 [facility] MOUTH EVERY MOUTH EVERY TABLET BY l DAY DAY MOUTH Clinics EVERY DAY atorvastati atorvastati No atorvastat [facility] n 40 mg n 40 mg in 40 mg Commu ni tablet TAKE tablet TAKE tablet ty 1 TABLET BY 1 TABLET BY TAKE 1 Hospita MOUTH EVERY MOUTH EVERY TABLET BY l DAY DAY MOUTH Clinics EVERY DAY BD Kalee 2nd BD Kalee 2nd No BD Kalee [facility] Gen Pen Gen Pen 2nd Gen Commun i Needle 32 Needle 32 Pen Needle ty gauge x gauge x 32 gauge x Hos [facility] " 1 " 1 " 1 l TIME A DAY TIME A DAY TIME A DAY Clinics cholecalcif cholecalcif No cholecalci [facility] ghada ghada ferol Communi (vitamin (vitamin (vitamin ty D3) 1,250 D3) 1,250 D3) 1,250 Hospita mcg (50,000 mcg (50,000 mcg l unit) unit) (50,000 Clinics capsule capsule unit) TAKE 1 TAKE 1 capsule CAPSULE CAPSULE TAKE 1 EVERY 15 EVERY 15 CAPSULE DAYS DAYS EVERY 15 DAYS clonazepam clonazepam No clonazepam [facility] 0.5 mg 0.5 mg 0.5 mg Communi tablet TAKE tablet TAKE tablet ty 1 TABLET BY 1 TABLET BY TAKE 1 Hospita MOUTH TWICE MOUTH TWICE TABLET BY l A DAY A DAY MOUTH Clinic s DIRECTED DIRECTED TWICE A PRn PRn DAY DIRECTED PRn dicyclomine dicyclomine No dicyclomin [facility] 10 mg 10 mg e 10 mg Communi capsule capsule capsule ty TAKE 1 TAKE 1 TAKE 1 Hospita CAPSULE BY CAPSULE BY CAPSULE BY l MOUTH THREE MOUTH THREE MOUTH Clinics TIMES A DAY TIMES A DAY THREE NEEDED NEEDED TIMES A DAY NEEDED doxycycline doxycycline No doxycyclin [facility] hyclate 100 hyclate 100 e hyclate Communi mg capsule mg capsule 100 mg t y TAKE 1 TAKE 1 capsule Hospita CAPSULE BY CAPSULE BY TAKE 1 l MOUTH TWICE MOUTH TWICE CAPSULE BY Clinics A DAY A DAY MOUTH TWICE A DAY Eliquis 5 Eliquis 5 No Eliquis 5 [facility] mg tablet mg tablet mg tablet Communi TAKE 1 TAKE 1 TAKE 1 ty TABLET BY TABLET BY TABLET BY Hospita MOUTH 2 MOUTH 2 MOUTH 2 l (TWO) TIMES (TWO) TIMES (TWO) Clinics DAILY. DAILY. TIMES INDICATIONS INDICATIONS DAILY. ATRIAL ATRIAL INDICATION FIBRILLATIO FIBRILLATIO S ATRIAL N N FIBRILLATI ON Humatrope 6 Humatrope 6 No Humatrope [facility] mg (18 mg (18 6 mg (18 Communi unit) unit) unit) ty injection injection injection [facility] cartridge cartridge cartridge l INJECT INJECT INJECT Clinics 0.3MG 0.3MG 0.3MG SUBCUTANEOU SUBCUTANEOU SUBCUTANEO SLY EVERY SLY EVERY USLY EVERY DAY DAY DAY hydrocortis hydrocortis No hydrocorti [facility] one 20 mg one 20 mg sone 20 mg Communi tablet TAKE tablet TAKE tablet ty 1 TAB AND A 1 TAB AND A TAKE 1 TAB Hospita HALF IN AM HALF IN AM AND A HALF l AND 1 TAB AND 1 TAB IN AM AND Clinics AND A HALF AND A HALF 1 TAB AND IN PM IN PM A HALF IN PM isosorbide isosorbide No isosorbide [facility] mononitrate mononitrate mononitrat Communi ER 30 mg ER 30 mg e ER 30 mg t y tablet,exte tablet,exte tablet,ext Hospita nded nded ended l release 24 release 24 release 24 Clinics hr TAKE 1 hr TAKE 1 hr TAKE 1 TABLET BY TABLET BY TABLET BY MOUTH EVERY MOUTH EVERY MOUTH DAY DAY EVERY DAY Klor-Con 10 Klor-Con 10 No Klor-Con [facility] mEq mEq 10 mEq Communi tablet,exte tablet,exte tablet,ext ty nded nded ended Hospita release release release l TAKE 1 TAKE 1 TAKE 1 Clinics TABLET BY TABLET BY TABLET BY MOUTH EVERY MOUTH EVERY MOUTH DAY WITH DAY WITH EVERY DAY FOOD FOOD WITH FOOD levothyroxi levothyroxi No levothyrox [facility] ne 112 mcg ne 112 mcg ine 112 Communi tablet 1 tablet 1 mcg tablet t y TAB DAILY TAB DAILY 1 TAB Hosp [facility]yl 1/2 HR. 1/2 HR. DAILY 1/2 l BEFORE BEFORE HR. BEFORE Clini cs BREAKFAST BREAKFAST BREAKFAST WITH WATER WITH WATER WITH WATER losartan losartan No losartan [facility] 100 mg 100 mg 100 mg Communi tablet 1 po tablet 1 po tablet 1 ty qd qd po qd Hospita l [facility] mirtazapine mirtazapine No mirtazapin [facility] 15 mg 15 mg e 15 mg Communi tablet TAKE tablet TAKE tablet ty 1 TABLET BY 1 TABLET BY TAKE 1 Hospita MOUTH MOUTH TABLET BY l EVERYDAY AT EVERYDAY AT MOUTH Clinics BEDTIME BEDTIME EVERYDAY AT BEDTIME Myrbetriq Myrbetriq No 1 Q1D Myrbetriq [facility] 25 mg 25 mg 25 mg Communi tablet,exte tablet,exte tablet,ext ty nded nded ended Hospita release release release l Take 1 Take 1 Take 1 Clinics tablet tablet tablet every day every day every day by oral by oral by oral route. route. route. nitroglycer nitroglycer No 1 nitroglyce [facility] in 0.4 mg in 0.4 mg rin 0.4 mg Communi sublingual sublingual sublingual ty tablet tablet tablet Hospita Place [address] 1 l tablet as tablet as tablet as Clinics needed by needed by needed by sublingual sublingual sublingual route. route. route. OneTouch OneTouch No OneTouch [facility] made[facility] Del[facility] Del[facility] Communi Lancets 30 Lancets 30 Lancets 30 ty gauge TEST gauge TEST gauge [facility] TWICE A DAY TWICE A DAY TWICE A l DAY Clinics OneTouch OneTouch No OneTouch Swe made[facility] Verio Flex Verio Flex Verio Flex Communi Meter FOR Meter FOR Meter FOR ty TESTING.1 TESTING.1 TESTING.1 Hospita BOX ICD 10 BOX ICD 10 BOX ICD 10 l E11.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.65 Clinics OneTouch OneTouch No OneTouch Swe madeleine Verio test Verio test Verio test Communi strips TEST strips TEST strips ty TWICE A DAY TWICE A DAY TEST TWICE Hospita A DAY l Clinics Santyl 250 Santyl 250 No Santyl 250 [facility] unit/gram unit/gram unit/gram Communi topical topical topical ty ointment ointment ointment [facility] APPLY A APPLY A APPLY A l DIONY [facility] THICK THICK THICK AMOUNT TO AMOUNT TO AMOUNT TO WOUND 3 WOUND 3 WOUND 3 TIMES A TIMES A TIMES A WEEK WEEK WEEK simvastatin simvastatin No simvastati [facility] 40 mg 40 mg n 40 mg Communi tablet TAKE tablet TAKE tablet ty 1 TABLET 1 TABLET TAKE 1 Hospi ta (40 MG) BY (40 MG) BY TABLET (40 l MOUTH DAILY MOUTH DAILY MG) BY Clinics IN THE IN THE MOUTH EVENING NOT EVENING NOT DAILY IN TAKING TAKING THE EVENING NOT TAKING sotalol 160 sotalol 160 No sotalol [facility] mg tablet mg tablet 160 mg Com raz TAKE 1 TAKE 1 tablet ty TABLET BY TABLET BY TAKE 1 [facility] MOUTH EVERY MOUTH EVERY TABLET BY l DAY DAY MOUTH Clinics EVERY DAY tramadol 50 tramadol 50 No tramadol [facility] mg tablet mg tablet 50 mg Comm uni TAKE 1 TAKE 1 tablet ty TABLET BY TABLET BY TAKE 1 [facility] MOUTH EVERY MOUTH EVERY TABLET BY l 6 HOURS 6 HOURS MOUTH Clinics EVERY 6 HOURS amlodipine amlodipine No amlodipine [facility] 5 mg tablet 5 mg tablet 5 mg C [facility] TAKE 1 TAKE 1 tablet ty TABLET BY TABLET BY TAKE 1 [facility] MOUTH EVERY MOUTH EVERY TABLET BY l DAY DAY MOUTH Clinics EVERY DAY atorvastati atorvastati No atorvastat [facility] n 40 mg n 40 mg in 40 mg Commu ni tablet TAKE tablet TAKE tablet ty 1 TABLET BY 1 TABLET BY TAKE 1 Hospita MOUTH EVERY MOUTH EVERY TABLET BY l DAY DAY MOUTH Clinics EVERY DAY BD Kalee 2nd BD Kalee 2nd No BD Kalee [place] Gen Pen Gen Pen 2nd Gen Commun i Needle 32 Needle 32 Pen Needle ty gauge x gauge x 32 gauge x Hos [facility] " 1 " 1 " 1 l TIME A DAY TIME A DAY TIME A DAY Clinics cholecalcif cholecalcif No cholecalci [facility] ghada ghada ferol Communi (vitamin (vitamin (vitamin ty D3) 1,250 D3) 1,250 D3) 1,250 Hospita mcg (50,000 mcg (50,000 mcg l unit) unit) (50,000 Clinics capsule capsule unit) TAKE 1 TAKE 1 capsule CAPSULE CAPSULE TAKE 1 EVERY 15 EVERY 15 CAPSULE DAYS DAYS EVERY 15 DAYS clonazepam clonazepam No clonazepam [facility] 0.5 mg 0.5 mg 0.5 mg Communi tablet TAKE tablet TAKE tablet ty 1 TABLET BY 1 TABLET BY TAKE 1 Hospita MOUTH TWICE MOUTH TWICE TABLET BY l A DAY A DAY MOUTH Clinic s DIRECTED DIRECTED TWICE A PRn PRn DAY DIRECTED PRn dicyclomine dicyclomine No dicyclomin [facility] 10 mg 10 mg e 10 mg Communi capsule capsule capsule ty TAKE 1 TAKE 1 TAKE 1 Hospita CAPSULE BY CAPSULE BY CAPSULE BY l MOUTH THREE MOUTH THREE MOUTH Clinics TIMES A DAY TIMES A DAY THREE NEEDED NEEDED TIMES A DAY NEEDED docusate docusate No docusate [facility] sodium 100 sodium 100 sodium 100 Communi mg capsule mg capsule mg capsule ty TAKE 1 TAKE 1 TAKE 1 Hospita CAPSULE BY CAPSULE BY CAPSULE BY l MOUTH EVERY MOUTH EVERY MOUTH Clinics DAY DAY EVERY DAY doxycycline doxycycline No doxycyclin [facility] hyclate 100 hyclate 100 e hyclate Communi mg capsule mg capsule 100 mg t y TAKE 1 TAKE 1 capsule Hospita CAPSULE BY CAPSULE BY TAKE 1 l MOUTH TWICE MOUTH TWICE CAPSULE BY Clinics A DAY A DAY MOUTH TWICE A DAY Eliquis 2.5 Eliquis 2.5 No Eliquis [facility] mg tablet mg tablet 2.5 mg Com raz TAKE 1 TAKE 1 tablet ty TABLET BY TABLET BY TAKE 1 [facility] MOUTH TWICE MOUTH TWICE TABLET BY l A DAY A DAY MOUTH Clinics TWICE A DAY Eliquis 5 Eliquis 5 No Eliquis 5 [facility] mg tablet mg tablet mg tablet Communi TAKE 1 TAKE 1 TAKE 1 ty TABLET BY TABLET BY TABLET BY Hospita MOUTH 2 MOUTH 2 MOUTH 2 l (TWO) TIMES (TWO) TIMES (TWO) Clinics DAILY. DAILY. TIMES INDICATIONS INDICATIONS DAILY. ATRIAL ATRIAL INDICATION FIBRILLATIO FIBRILLATIO S ATRIAL N N FIBRILLATI ON glipizide glipizide No glipizide [facility] ER 2.5 mg ER 2.5 mg ER 2.5 mg Communi tablet, tablet, tablet, ty extended extended extended [facility] release 24 release 24 release 24 l hr hr hr Clinics Humatrope 6 Humatrope 6 No Humatrope [facility] mg (18 mg (18 6 mg (18 Communi unit) unit) unit) ty injection injection injection [facility] cartridge cartridge cartridge l INJECT INJECT INJECT Clinics 0.3MG 0.3MG 0.3MG SUBCUTANEOU SUBCUTANEOU SUBCUTANEO SLY EVERY SLY EVERY USLY EVERY DAY DAY DAY hydrocortis hydrocortis No hydrocorti [facility] one 20 mg one 20 mg sone 20 mg Communi tablet TAKE tablet TAKE tablet ty 2 TABLETS 2 TABLETS TAKE 2 [facility] BY MOUTH BY MOUTH TABLETS BY l EVERY DAY EVERY DAY MOUTH Clin ics IN THE IN THE EVERY DAY MORNING MORNING IN THE MORNING isosorbide isosorbide No isosorbide [facility] mononitrate mononitrate mononitrat Communi ER 30 mg ER 30 mg e ER 30 mg t y tablet,exte tablet,exte tablet,ext Hospita nded nded ended l release 24 release 24 release 24 Clinics hr TAKE 1 hr TAKE 1 hr TAKE 1 TABLET BY TABLET BY TABLET BY MOUTH EVERY MOUTH EVERY MOUTH DAY DAY EVERY DAY Klor-Con 10 Klor-Con 10 No Klor-Con [facility] mEq mEq 10 mEq Communi tablet,exte tablet,exte tablet,ext ty nded nded ended Hospita release release release l TAKE 1 TAKE 1 TAKE 1 Clinics TABLET BY TABLET BY TABLET BY MOUTH EVERY MOUTH EVERY MOUTH DAY WITH DAY WITH EVERY DAY FOOD FOOD WITH FOOD levothyroxi levothyroxi No levothyrox [facility] ne 112 mcg ne 112 mcg ine 112 Communi tablet 1 tablet 1 mcg tablet t y TAB DAILY TAB DAILY 1 TAB Hosp meryl 1/2 HR. 1/2 HR. DAILY 1/2 l BEFORE BEFORE HR. BEFORE Clini cs BREAKFAST BREAKFAST BREAKFAST WITH WATER WITH WATER WITH WATER lidocaine 5 lidocaine 5 No lidocaine [facility] % topical % topical 5 % Commu ni patch patch topical ty patch [facility] liothyronin liothyronin No liothyroni [facility] e 5 mcg e 5 mcg ne 5 mcg Commu ni tablet tablet tablet ty [facility] losartan losartan No losartan Swe made[facility] 100 mg 100 mg 100 mg Communi tablet 1 po tablet 1 po tablet 1 ty qd qd po qd [facility] mirtazapine mirtazapine No mirtazapin [facility] 15 mg 15 mg e 15 mg Communi tablet TAKE tablet TAKE tablet ty 1 TABLET BY 1 TABLET BY TAKE 1 Hospita MOUTH MOUTH TABLET BY l EVERYDAY AT EVERYDAY AT MOUTH Clinics BEDTIME BEDTIME EVERYDAY AT BEDTIME Myrbetriq Myrbetriq No 1 Q1D Myrbetriq [facility] 25 mg 25 mg 25 mg Communi tablet,exte tablet,exte tablet,ext ty nded nded ended Hospita release release release l Take 1 Take 1 Take 1 Clinics tablet tablet tablet every day every day every day by oral by oral by oral route. route. route. nitroglycer nitroglycer No 1 nitroglyce [facility] in 0.4 mg in 0.4 mg rin 0.4 mg Communi sublingual sublingual sublingual ty tablet tablet tablet Hospita Place [address] 1 l tablet as tablet as tablet as Clinics needed by needed by needed by sublingual sublingual sublingual route. route. route. omeprazole omeprazole No omeprazole [facility] 20 mg 20 mg 20 mg Communi capsule,del capsule,del capsule,de ty ayed ayed layed Hospita release release release l TAKE 1 TAKE 1 TAKE 1 Clinics CAPSULE BY CAPSULE BY CAPSULE BY MOUTH EVERY MOUTH EVERY MOUTH MORNING MORNING EVERY MORNING OneTouch OneTouch No OneTouch [facility]i Lancets 30 Lancets 30 Lancets 30 ty gauge TEST gauge TEST gauge TEST Hospita TWICE A DAY TWICE A DAY TWICE A l DAY Clinics OneTouch OneTouch No OneTouch Swe made[facility] Verio Flex Verio Flex Verio Flex Communi Meter FOR Meter FOR Meter FOR ty TESTING.1 TESTING.1 TESTING.1 Hospita BOX ICD 10 BOX ICD 10 BOX ICD 10 l E11.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.65 Clinics OneTouch OneTouch No OneTouch Swe madeleine Verio test Verio test Verio test Communi strips TEST strips TEST strips ty TWICE A DAY TWICE A DAY TEST TWICE Hospita A DAY l Clinics pantoprazol pantoprazol No pantoprazo [facility] e 40 mg e 40 mg le 40 mg Commu ni tablet,indira tablet,indira tablet,del ty yed release yed release ayed H ospita release l Clinics potassium potassium No potassium [facility] chloride ER chloride ER chloride Communi 20 mEq 20 mEq ER 20 mEq ty tablet,exte tablet,exte tablet,ext Hospita nded nded ended l release(par release(par release(in Clinics t/cryst) t/cryst) rt/cryst) TAKE 1 TAKE 1 TAKE 1 TABLET BY TABLET BY TABLET BY MOUTH EVERY MOUTH EVERY MOUTH DAY DAY EVERY DAY Santyl 250 Santyl 250 No Santyl 250 [facility] unit/gram unit/gram unit/gram Communi topical topical topical ty ointment ointment ointment [facility] APPLY A APPLY A APPLY A l DIONY [facility] THICK THICK THICK AMOUNT TO AMOUNT TO AMOUNT TO WOUND 3 WOUND 3 WOUND 3 TIMES A TIMES A TIMES A WEEK WEEK WEEK simvastatin simvastatin No simvastati [facility] 40 mg 40 mg n 40 mg Communi tablet TAKE tablet TAKE tablet ty 1 TABLET 1 TABLET TAKE 1 Hospi ta (40 MG) BY (40 MG) BY TABLET (40 l MOUTH DAILY MOUTH DAILY MG) BY Clinics IN THE IN THE MOUTH EVENING NOT EVENING NOT DAILY IN TAKING TAKING THE EVENING NOT TAKING sotalol 160 sotalol 160 No sotalol [facility] mg tablet mg tablet 160 mg Com raz TAKE 1 TAKE 1 tablet ty TABLET BY TABLET BY TAKE 1 [facility] MOUTH EVERY MOUTH EVERY TABLET BY l DAY DAY MOUTH Clinics EVERY DAY tramadol 50 tramadol 50 No tramadol [facility] mg tablet mg tablet 50 mg Comm uni TAKE 1 TAKE 1 tablet ty TABLET BY TABLET BY TAKE 1 [facility] MOUTH AT MOUTH AT TABLET BY l BEDTIME AND BEDTIME AND MOUTH AT Clinics IN MORNING IN MORNING BEDTIME AND IN MORNING amlodipine amlodipine No amlodipine [facility] 5 mg tablet 5 mg tablet 5 mg C [facility] TAKE 1 TAKE 1 tablet ty TABLET BY TABLET BY TAKE 1 [facility] MOUTH EVERY MOUTH EVERY TABLET BY l DAY DAY MOUTH Clinics EVERY DAY BD Kalee 2nd BD Kalee 2nd No BD Kalee [facility] Gen Pen Gen Pen 2nd Gen Commun i Needle 32 Needle 32 Pen Needle ty gauge x gauge x 32 gauge x [facility] /32" 1 32" 1 32" 1 l TIME A DAY TIME A DAY TIME A DAY Clinics cholecalcif cholecalcif No cholecalci [facility] ghada ghada ferol Communi (vitamin (vitamin (vitamin ty D3) 1,250 D3) 1,250 D3) 1,250 Hospita mcg (50,000 mcg (50,000 mcg l unit) unit) (50,000 Clinics capsule capsule unit) TAKE 1 TAKE 1 capsule CAPSULE CAPSULE TAKE 1 EVERY 15 EVERY 15 CAPSULE DAYS DAYS EVERY 15 DAYS clonazepam clonazepam No clonazepam [facility] 0.5 mg 0.5 mg 0.5 mg Communi tablet TAKE tablet TAKE tablet ty 1 TABLET BY 1 TABLET BY TAKE 1 Hospita MOUTH ONCE MOUTH ONCE TABLET BY l A DAY A DAY MOUTH ONCE C linics NEEDED NEEDED A DAY NEEDED docusate docusate No docusate [facility] sodium 100 sodium 100 sodium 100 Communi mg capsule mg capsule mg capsule ty TAKE 1 TAKE 1 TAKE 1 Hospita CAPSULE BY CAPSULE BY CAPSULE BY l MOUTH EVERY MOUTH EVERY MOUTH Clinics DAY DAY EVERY DAY famotidine famotidine No famotidine [facility] 20 mg 20 mg 20 mg Communi tablet Take tablet Take tablet ty 1 tablet 1 tablet Take 1 Hospi ta daily by daily by tablet l mouth mouth daily by Clinics mouth ferrous ferrous No ferrous [facility] sulfate 220 sulfate 220 sulfate Communi mg (44 mg mg (44 mg 220 mg (44 ty iron)/5 mL iron)/5 mL mg iron)/5 Hospita oral elixir oral elixir mL oral l Take 5 ML Take 5 ML elixir Cli nics BID by BID by Take 5 ML mouth mouth BID by mouth glipizide glipizide No glipizide [facility] ER 2.5 mg ER 2.5 mg ER 2.5 mg Communi tablet, tablet, tablet, ty extended extended extended [facility] release 24 release 24 release 24 l hr hr hr Clinics Humatrope 6 Humatrope 6 No Humatrope [facility] mg (18 mg (18 6 mg (18 Communi unit) unit) unit) ty injection injection injection [facility] cartridge cartridge cartridge l INJECT INJECT INJECT [facility] 0.3MG 0.3MG 0.3MG SUBCUTANEOU SUBCUTANEOU SUBCUTANEO SLY EVERY SLY EVERY USLY EVERY DAY DAY DAY hydrocortis hydrocortis No hydrocorti [facility] one 20 mg one 20 mg sone 20 mg Communi tablet TAKE tablet TAKE tablet ty 2 TABLETS 2 TABLETS TAKE 2 [facility] BY MOUTH BY MOUTH TABLETS BY l EVERY DAY EVERY DAY MOUTH Clin ics IN THE IN THE EVERY DAY MORNING MORNING IN THE MORNING isosorbide isosorbide No isosorbide [facility] mononitrate mononitrate mononitrat Communi ER 30 mg ER 30 mg e ER 30 mg t y tablet,exte tablet,exte tablet,ext Hospita nded nded ended l release 24 release 24 release 24 Clinics hr TAKE 1 hr TAKE 1 hr TAKE 1 TABLET BY TABLET BY TABLET BY MOUTH EVERY MOUTH EVERY MOUTH DAY DAY EVERY DAY Klor-Con 10 Klor-Con 10 No Klor-Con [facility] mEq mEq 10 mEq Communi tablet,exte tablet,exte tablet,ext ty nded nded ended Hospita release release release l TAKE 1 TAKE 1 TAKE 1 Clinics TABLET BY TABLET BY TABLET BY MOUTH EVERY MOUTH EVERY MOUTH DAY WITH DAY WITH EVERY DAY FOOD FOOD WITH FOOD levothyroxi levothyroxi No levothyrox [facility] ne 112 mcg ne 112 mcg ine 112 Communi tablet 1 tablet 1 mcg tablet t y TAB DAILY TAB DAILY 1 TAB Hosp [facility]yl 1/2 HR. 1/2 HR. DAILY 1/2 l BEFORE BEFORE HR. BEFORE Clini cs BREAKFAST BREAKFAST BREAKFAST WITH WATER WITH WATER WITH WATER lidocaine 5 lidocaine 5 No lidocaine [facility] % topical % topical 5 % Commu ni patch patch topical ty patch [facility] liothyronin liothyronin No liothyroni [facility] e 5 mcg e 5 mcg ne 5 mcg Commu ni tablet tablet tablet ty [facility] mirtazapine mirtazapine No mirtazapin [facility] 15 mg 15 mg e 15 mg Communi tablet TAKE tablet TAKE tablet ty 1 TABLET BY 1 TABLET BY TAKE 1 Hospita MOUTH MOUTH TABLET BY l EVERYDAY AT EVERYDAY AT MOUTH Clinics BEDTIME BEDTIME EVERYDAY AT BEDTIME nitroglycer nitroglycer No 1 nitroglyce [facility] in 0.4 mg in 0.4 mg rin 0.4 mg Communi sublingual sublingual sublingual ty tablet tablet tablet [facility] Place [address] 1 l tablet as tablet as tablet as Clinics needed by needed by needed by sublingual sublingual sublingual route. route. route. omeprazole omeprazole No omeprazole [facility] 20 mg 20 mg 20 mg Communi capsule,del capsule,del capsule,de ty ayed ayed layed Hospita release release release l TAKE 1 TAKE 1 TAKE 1 Clinics CAPSULE BY CAPSULE BY CAPSULE BY MOUTH EVERY MOUTH EVERY MOUTH MORNING MORNING EVERY MORNING OneTouch OneTouch No OneTouch [facility]i Lancets 30 Lancets 30 Lancets 30 ty gauge TEST gauge TEST gauge TEST [facility] TWICE A DAY TWICE A DAY TWICE A l DAY Clinics OneTouch OneTouch No OneTouch Swe madeleine Verio Flex Verio Flex Verio Flex Communi Meter FOR Meter FOR Meter FOR ty TESTING.1 TESTING.1 TESTING.1 Hospita BOX ICD 10 BOX ICD 10 BOX ICD 10 l E11.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.65 Clinics OneTouch OneTouch No OneTouch Swe madeleine Verio test Verio test Verio test Communi strips TEST strips TEST strips ty TWICE A DAY TWICE A DAY TEST TWICE Hospita A DAY l Clinics pantoprazol pantoprazol No pantoprazo [facility] e 40 mg e 40 mg le 40 mg Commu ni tablet,indira tablet,indira tablet,del ty yed release yed release ayed H ospita Take 1 Take 1 release l tablet BID tablet BID Take 1 C linics by mouth by mouth tablet BID by mouth potassium potassium No potassium [facility] chloride ER chloride ER chloride Communi 20 mEq 20 mEq ER 20 mEq ty tablet,exte tablet,exte tablet,ext Hospita nded nded ended l release(par release(par release(pa Clinics t/cryst) t/cryst) rt/cryst) TAKE 1 TAKE 1 TAKE 1 TABLET BY TABLET BY TABLET BY MOUTH EVERY MOUTH EVERY MOUTH DAY DAY EVERY DAY Santyl 250 Santyl 250 No Santyl 250 [facility] unit/gram unit/gram unit/gram Communi topical topical topical ty ointment ointment ointment [facility] APPLY A APPLY A APPLY A l [facility] THICK THICK THICK AMOUNT TO AMOUNT TO AMOUNT TO WOUND 3 WOUND 3 WOUND 3 TIMES A TIMES A TIMES A WEEK WEEK WEEK sotalol 160 sotalol 160 No sotalol [facility] mg tablet mg tablet 160 mg Com raz TAKE 1 TAKE 1 tablet ty TABLET BY TABLET BY TAKE 1 [facility] MOUTH EVERY MOUTH EVERY TABLET BY l DAY DAY MOUTH Clinics EVERY DAY tramadol 50 tramadol 50 No tramadol [facility] mg tablet mg tablet 50 mg Comm uni TAKE 1 TAKE 1 tablet ty TABLET BY TABLET BY TAKE 1 [facility] MOUTH AT MOUTH AT TABLET BY l BEDTIME AND BEDTIME AND MOUTH AT Clinics IN MORNING IN MORNING BEDTIME AND IN MORNING amlodipine amlodipine No amlodipine [facility] 5 mg tablet 5 mg tablet 5 mg C [facility] TAKE 1 TAKE 1 tablet ty TABLET BY TABLET BY TAKE 1 [facility] MOUTH EVERY MOUTH EVERY TABLET BY l DAY DAY MOUTH Clinics EVERY DAY Bactrim DS Bactrim DS No 1 Q12H Bactrim DS [facility] 800 mg-160 800 mg-160 800 mg-160 Communi mg tablet mg tablet mg tablet ty Take 1 Take 1 Take 1 Hospita tablet tablet tablet l every 12 every 12 every 12 Cli nics hours by hours by hours by oral route oral route oral route for 7 days. for 7 days. for 7 days. BD Kalee 2nd BD [facility] 2nd No BD Kalee [facility] Gen Pen Gen Pen 2nd Gen Commun i Needle 32 Needle 32 Pen Needle ty gauge x gauge x 32 gauge x [facility] " 1 " 1 " 1 l TIME A DAY TIME A DAY TIME A DAY Clinics cholecalcif cholecalcif No cholecalci [facility] ghada ghada ferol Communi (vitamin (vitamin (vitamin ty D3) 1,250 D3) 1,250 D3) 1,250 Hospita mcg (50,000 mcg (50,000 mcg l unit) unit) (50,000 Clinics capsule capsule unit) TAKE 1 TAKE 1 capsule CAPSULE CAPSULE TAKE 1 EVERY 15 EVERY 15 CAPSULE DAYS DAYS EVERY 15 DAYS clonazepam clonazepam No clonazepam [facility] 0.5 mg 0.5 mg 0.5 mg Communi tablet TAKE tablet TAKE tablet ty 1 TABLET BY 1 TABLET BY TAKE 1 Hospita MOUTH ONCE MOUTH ONCE TABLET BY l A DAY A DAY MOUTH ONCE C linics NEEDED NEEDED A DAY NEEDED cyclobenzap cyclobenzap No cyclobenza [facility] rine 10 mg rine 10 mg rita 10 Communi tablet tablet mg tablet ty Hospita l Clinics diclofenac diclofenac No diclofenac [facility] sodium 75 sodium 75 sodium 75 Communi mg mg mg ty tablet,indira tablet,indira tablet,del Hospita yed release yed release ayed l release Clinics docusate docusate No docusate [facility] sodium 100 sodium 100 sodium 100 Communi mg capsule mg capsule mg capsule ty TAKE 1 TAKE 1 TAKE 1 Hospita CAPSULE BY CAPSULE BY CAPSULE BY l MOUTH EVERY MOUTH EVERY MOUTH Clinics DAY DAY EVERY DAY famotidine famotidine No famotidine [facility] 20 mg 20 mg 20 mg Communi tablet Take tablet Take tablet ty 1 tablet 1 tablet Take 1 Hospi ta daily by daily by tablet l mouth mouth daily by Clinics mouth ferrous ferrous No ferrous [facility] sulfate 220 sulfate 220 sulfate Communi mg (44 mg mg (44 mg 220 mg (44 ty iron)/5 mL iron)/5 mL mg iron)/5 Hospita oral elixir oral elixir mL oral l Take 5 ML Take 5 ML elixir Cli nics BID by BID by Take 5 ML mouth mouth BID by mouth glipizide glipizide No glipizide [facility] ER 2.5 mg ER 2.5 mg ER 2.5 mg Communi tablet, tablet, tablet, ty extended extended extended [facility] release 24 release 24 release 24 l hr hr hr Clinics Humatrope 6 Humatrope 6 No Humatrope [facility] mg (18 mg (18 6 mg (18 Communi unit) unit) unit) ty injection injection injection Hospita cartridge cartridge cartridge l INJECT INJECT INJECT Clinics 0.3MG 0.3MG 0.3MG SUBCUTANEOU SUBCUTANEOU SUBCUTANEO SLY EVERY SLY EVERY USLY EVERY DAY DAY DAY hydrocortis hydrocortis No hydrocorti [facility] one 20 mg one 20 mg sone 20 mg Communi tablet TAKE tablet TAKE tablet ty 2 TABLETS 2 TABLETS TAKE 2 [facility] BY MOUTH BY MOUTH TABLETS BY l EVERY DAY EVERY DAY MOUTH Clin ics IN THE IN THE EVERY DAY MORNING MORNING IN THE MORNING isosorbide isosorbide No isosorbide [facility] mononitrate mononitrate mononitrat Communi ER 30 mg ER 30 mg e ER 30 mg t y tablet,exte tablet,exte tablet,ext Hospita nded nded ended l release 24 release 24 release 24 Clinics hr TAKE 1 hr TAKE 1 hr TAKE 1 TABLET BY TABLET BY TABLET BY MOUTH EVERY MOUTH EVERY MOUTH DAY DAY EVERY DAY Klor-Con 10 Klor-Con 10 No Klor-Con [facility] mEq mEq 10 mEq Communi tablet,exte tablet,exte tablet,ext ty nded nded ended Hospita release release release l TAKE 1 TAKE 1 TAKE 1 Clinics TABLET BY TABLET BY TABLET BY MOUTH EVERY MOUTH EVERY MOUTH DAY WITH DAY WITH EVERY DAY FOOD FOOD WITH FOOD levothyroxi levothyroxi No levothyrox [facility] ne 112 mcg ne 112 mcg ine 112 Communi tablet 1 tablet 1 mcg tablet t y TAB DAILY TAB DAILY 1 TAB Hosp meryl 1/2 HR. 1/2 HR. DAILY 1/2 l BEFORE BEFORE HR. BEFORE Clini cs BREAKFAST BREAKFAST BREAKFAST WITH WATER WITH WATER WITH WATER lidocaine 5 lidocaine 5 No lidocaine [facility] % topical % topical 5 % Commu ni patch patch topical ty patch [facility] liothyronin liothyronin No liothyroni [place] e 5 mcg e 5 mcg ne 5 mcg Commu ni tablet tablet tablet ty Hospita l Clinics mirtazapine mirtazapine No mirtazapin [facility] 15 mg 15 mg e 15 mg Communi tablet TAKE tablet TAKE tablet ty 1 TABLET BY 1 TABLET BY TAKE 1 Hospita MOUTH MOUTH TABLET BY l EVERYDAY AT EVERYDAY AT MOUTH Clinics BEDTIME BEDTIME EVERYDAY AT BEDTIME nitroglycer nitroglycer No 1 nitroglyce [facility] in 0.4 mg in 0.4 mg rin 0.4 mg Communi sublingual sublingual sublingual ty tablet tablet tablet Hospita Place [address] 1 l tablet as tablet as tablet as Clinics needed by needed by needed by sublingual sublingual sublingual route. route. route. omeprazole omeprazole No omeprazole [facility] 20 mg 20 mg 20 mg Communi capsule,del capsule,del capsule,de ty ayed ayed layed Hospita release release release l TAKE 1 TAKE 1 TAKE 1 Clinics CAPSULE BY CAPSULE BY CAPSULE BY MOUTH EVERY MOUTH EVERY MOUTH MORNING MORNING EVERY MORNING OneTouch OneTouch No OneTouch [facility] Lancets 30 Lancets 30 Lancets 30 ty gauge TEST gauge TEST gauge TEST [facility] TWICE A DAY TWICE A DAY TWICE A l DAY Clinics OneTouch OneTouch No OneTouch Swe madeleine Verio Flex Verio Flex Verio Flex Communi Meter FOR Meter FOR Meter FOR ty TESTING.1 TESTING.1 TESTING.1 [facility] BOX ICD 10 BOX ICD 10 BOX ICD 10 l E11.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.65 Clinics OneTouch OneTouch No OneTouch Swe madeleine Verio test Verio test Verio test Communi strips TEST strips TEST strips ty TWICE A DAY TWICE A DAY TEST TWICE Hospita A DAY Clinics pantoprazol pantoprazol No pantoprazo [place] e 40 mg e 40 mg le 40 mg Commu ni tablet,indira tablet,indira tablet,del ty yed release yed release ayed H ospita Take 1 Take 1 release l tablet BID tablet BID Take 1 C linics by mouth by mouth tablet BID by mouth potassium potassium No potassium [facility] chloride ER chloride ER chloride Communi 20 mEq 20 mEq ER 20 mEq ty tablet,exte tablet,exte tablet,ext Hospita nded nded ended l release(par release(par release(pa Clinics t/cryst) t/cryst) rt/cryst) TAKE 1 TAKE 1 TAKE 1 TABLET BY TABLET BY TABLET BY MOUTH EVERY MOUTH EVERY MOUTH DAY DAY EVERY DAY Pyridium Pyridium No 1 TID Pyridium [facility] 200 mg 200 mg 200 mg Communi tablet Take tablet Take tablet ty 1 tablet 3 1 tablet 3 Take 1 H ospita times a day times a day tablet 3 l by oral by oral times a Clinic s route for 3 route for 3 day by days. days. oral route for 3 days. Santyl 250 Santyl 250 No Santyl 250 [facility] unit/gram unit/gram unit/gram Communi topical topical topical ty ointment ointment ointment [facility] APPLY A APPLY A APPLY A l DIONY DIONY DIONY [facility] THICK THICK THICK AMOUNT TO AMOUNT TO AMOUNT TO WOUND 3 WOUND 3 WOUND 3 TIMES A TIMES A TIMES A WEEK WEEK WEEK sotalol 160 sotalol 160 No sotalol [facility] mg tablet mg tablet 160 mg Com raz TAKE 1 TAKE 1 tablet ty TABLET BY TABLET BY TAKE 1 [facility] MOUTH EVERY MOUTH EVERY TABLET BY l DAY DAY MOUTH Clinics EVERY DAY tramadol 50 tramadol 50 No tramadol [facility] mg tablet mg tablet 50 mg Comm uni TAKE 1 TAKE 1 tablet ty TABLET BY TABLET BY TAKE 1 [facility] MOUTH AT MOUTH AT TABLET BY l BEDTIME AND BEDTIME AND MOUTH AT Clinics IN MORNING IN MORNING BEDTIME AND IN MORNING amlodipine amlodipine No amlodipine [facility] 5 mg tablet 5 mg tablet 5 mg C [facility]i TAKE 1 TAKE 1 tablet ty TABLET BY TABLET BY TAKE 1 [facility] MOUTH EVERY MOUTH EVERY TABLET BY l DAY DAY MOUTH Clinics EVERY DAY atorvastati atorvastati No atorvastat [facility] n 20 mg n 20 mg in 20 mg Commu ni tablet TAKE tablet TAKE tablet ty 1 TABLET BY 1 TABLET BY TAKE 1 Hospita MOUTH EVERY MOUTH EVERY TABLET BY l DAY FOR 90 DAY FOR 90 MOUTH Cl inics DAYS DAYS EVERY DAY FOR 90 DAYS BD Kalee 2nd BD Kalee 2nd No BD Kalee [facility] Gen Pen Gen Pen 2nd Gen Commun i Needle 32 Needle 32 Pen Needle ty gauge x gauge x 32 gauge x Hos [facility] " 1 " 1 " 1 l TIME A DAY TIME A DAY TIME A DAY Clinics cholecalcif cholecalcif No cholecalci [facility] ghada ghada ferol Communi (vitamin (vitamin (vitamin ty D3) 1,250 D3) 1,250 D3) 1,250 Hospita mcg (50,000 mcg (50,000 mcg l unit) unit) (50,000 Clinics capsule capsule unit) TAKE 1 TAKE 1 capsule CAPSULE CAPSULE TAKE 1 EVERY 15 EVERY 15 CAPSULE DAYS DAYS EVERY 15 DAYS clonazepam clonazepam No clonazepam [facility] 0.5 mg 0.5 mg 0.5 mg Communi tablet TAKE tablet TAKE tablet ty 1 TABLET BY 1 TABLET BY TAKE 1 Hospita MOUTH EVERY MOUTH EVERY TABLET BY l DAY DAY MOUTH Clinics NEEDED NEEDED EVERY DAY NEEDED cyclobenzap cyclobenzap No cyclobenza [facility] rine 10 mg rine 10 mg rita 10 Communi tablet tablet mg tablet ty Hospita l Clinics diclofenac diclofenac No diclofenac [facility] sodium 75 sodium 75 sodium 75 Communi mg mg mg ty tablet,indira tablet,indira tablet,del Hospita yed release yed release ayed l release Clinics docusate docusate No docusate [facility] sodium 100 sodium 100 sodium 100 Communi mg capsule mg capsule mg capsule ty TAKE 1 TAKE 1 TAKE 1 Hospita CAPSULE BY CAPSULE BY CAPSULE BY l MOUTH EVERY MOUTH EVERY MOUTH Clinics DAY DAY EVERY DAY famotidine famotidine No famotidine [facility] 20 mg 20 mg 20 mg Communi tablet Take tablet Take tablet ty 1 tablet 1 tablet Take 1 Hospi ta daily by daily by tablet l mouth mouth daily by Clinics mouth ferrous ferrous No ferrous [facility] sulfate 220 sulfate 220 sulfate Communi mg (44 mg mg (44 mg 220 mg (44 ty iron)/5 mL iron)/5 mL mg iron)/5 Hospita oral elixir oral elixir mL oral l Take 5 ML Take 5 ML elixir Cli nics BID by BID by Take 5 ML mouth mouth BID by mouth glipizide glipizide No glipizide [facility] ER 2.5 mg ER 2.5 mg ER 2.5 mg Communi tablet, tablet, tablet, ty extended extended extended [facility] release 24 release 24 release 24 l hr hr hr Clinics Humatrope 6 Humatrope 6 No Humatrope [facility] mg (18 mg (18 6 mg (18 Communi unit) unit) unit) ty injection injection injection [facility] cartridge cartridge cartridge l INJECT INJECT INJECT Clinics 0.3MG 0.3MG 0.3MG SUBCUTANEOU SUBCUTANEOU SUBCUTANEO SLY EVERY SLY EVERY USLY EVERY DAY DAY DAY hydrocortis hydrocortis No hydrocorti [facility] one 20 mg one 20 mg sone 20 mg Communi tablet TAKE tablet TAKE tablet ty 2 TABLETS 2 TABLETS TAKE 2 [facility] BY MOUTH BY MOUTH TABLETS BY l EVERY DAY EVERY DAY MOUTH Clin ics IN THE IN THE EVERY DAY MORNING MORNING IN THE MORNING isosorbide isosorbide No isosorbide [facility] mononitrate mononitrate mononitrat Communi ER 30 mg ER 30 mg e ER 30 mg t y tablet,exte tablet,exte tablet,ext Hospita nded nded ended l release 24 release 24 release 24 Clinics hr TAKE 1 hr TAKE 1 hr TAKE 1 TABLET BY TABLET BY TABLET BY MOUTH EVERY MOUTH EVERY MOUTH DAY DAY EVERY DAY Klor-Con 10 Klor-Con 10 No Klor-Con [facility] mEq mEq 10 mEq Communi tablet,exte tablet,exte tablet,ext ty nded nded ended Hospita release release release l TAKE 1 TAKE 1 TAKE 1 Clinics TABLET BY TABLET BY TABLET BY MOUTH EVERY MOUTH EVERY MOUTH DAY WITH DAY WITH EVERY DAY FOOD FOOD WITH FOOD levothyroxi levothyroxi No levothyrox [facility] ne 112 mcg ne 112 mcg ine 112 Communi tablet 1 tablet 1 mcg tablet t y TAB DAILY TAB DAILY 1 TAB Hosp meryl 1/2 HR. 1/2 HR. DAILY 1/2 l BEFORE BEFORE HR. BEFORE Clini cs BREAKFAST BREAKFAST BREAKFAST WITH WATER WITH WATER WITH WATER lidocaine 5 lidocaine 5 No lidocaine [facility] % topical % topical 5 % Commu ni [facility]in No liothyroni [facility] e 5 mcg e 5 mcg ne 5 mcg Commu ni tablet tablet tablet ty [facility] mirtazapine mirtazapine No mirtazapin [facility] 15 mg 15 mg e 15 mg Communi tablet TAKE tablet TAKE tablet ty 1 TABLET BY 1 TABLET BY TAKE 1 Hospita MOUTH MOUTH TABLET BY l EVERYDAY AT EVERYDAY AT MOUTH Clinics BEDTIME BEDTIME EVERYDAY AT BEDTIME nitroglycer nitroglycer No 1 nitroglyce [facility] in 0.4 mg in 0.4 mg rin 0.4 mg Communi sublingual sublingual sublingual ty tablet tablet tablet [facility] Place [address] 1 l tablet as tablet as tablet as Clinics needed by needed by needed by sublingual sublingual sublingual route. route. route. omeprazole omeprazole No omeprazole [facility] 20 mg 20 mg 20 mg Communi capsule,del capsule,del capsule,de ty ayed ayed layed Hospita release release release l TAKE 1 TAKE 1 TAKE 1 Clinics CAPSULE BY CAPSULE BY CAPSULE BY MOUTH EVERY MOUTH EVERY MOUTH MORNING MORNING EVERY MORNING OneTouch OneTouch No OneTouch [facility] Lancets 30 Lancets 30 Lancets 30 ty gauge TEST gauge TEST gauge TEST Hospita TWICE A DAY TWICE A DAY TWICE A l DAY Clinics OneTouch OneTouch No OneTouch Swe madeleine Verio Flex Verio Flex Verio Flex Communi Meter FOR Meter FOR Meter FOR ty TESTING.1 TESTING.1 TESTING.1 Hospita BOX ICD 10 BOX ICD 10 BOX ICD 10 l E11.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.65 Clinics OneTouch OneTouch No OneTouch Swe madeleine Verio test Verio test Verio test Communi strips TEST strips TEST strips ty TWICE A DAY TWICE A DAY TEST TWICE Hospita A DAY l Clinics pantoprazol pantoprazol No pantoprazo [facility] e 40 mg e 40 mg le 40 mg Commu ni tablet,indira tablet,indira tablet,del ty yed release yed release ayed H ospita Take 1 Take 1 release l tablet BID tablet BID Take 1 C linics by mouth by mouth tablet BID by mouth phenazopyri phenazopyri No phenazopyr [facility] dine 200 mg dine 200 mg idine 200 Communi tablet TAKE tablet TAKE mg tablet ty 1 TABLET BY 1 TABLET BY TAKE 1 Hospita MOUTH THREE MOUTH THREE TABLET BY l TIMES A DAY TIMES A DAY MOUTH Clinics FOR 3 DAYS FOR 3 DAYS THREE TIMES A DAY FOR 3 DAYS potassium potassium No potassium [facility] chloride ER chloride ER chloride Communi 20 mEq 20 mEq ER 20 mEq ty tablet,exte tablet,exte tablet,ext Hospita nded nded ended l release(par release(par release(pa Clinics t/cryst) t/cryst) rt/cryst) TAKE 1 TAKE 1 TAKE 1 TABLET BY TABLET BY TABLET BY MOUTH EVERY MOUTH EVERY MOUTH DAY DAY EVERY DAY Santyl 250 Santyl 250 No Santyl 250 [facility] unit/gram unit/gram unit/gram Communi topical topical topical ty ointment ointment ointment [facility] APPLY A APPLY A APPLY A l DIONY DIONY DIONY [facility] THICK THICK THICK AMOUNT TO AMOUNT TO AMOUNT TO WOUND 3 WOUND 3 WOUND 3 TIMES A TIMES A TIMES A WEEK WEEK WEEK sotalol 160 sotalol 160 No sotalol [facility] mg tablet mg tablet 160 mg Com raz TAKE 1 TAKE 1 tablet ty TABLET BY TABLET BY TAKE 1 [facility] MOUTH EVERY MOUTH EVERY TABLET BY l DAY DAY MOUTH Clinics EVERY DAY sulfamethox sulfamethox No sulfametho [facility] azole 800 azole 800 xazole 800 Communi mg-trimetho mg-trimetho mg-trimeth ty prim 160 mg prim 160 mg oprim 160 Hospita tablet TAKE tablet TAKE mg tablet l 1 TABLET BY 1 TABLET BY TAKE 1 Clinics MOUTH EVERY MOUTH EVERY TABLET BY 12 HOURS 12 HOURS MOUTH FOR 7 DAYS FOR 7 DAYS EVERY 12 HOURS FOR 7 DAYS Suprax 200 Suprax 200 No 5mL BID Suprax 200 [facility] mg/5 mL mg/5 mL mg/5 mL Commun i oral oral oral ty suspension suspension suspension Hospita Take 5 mL Take 5 mL Take 5 mL l twice a day twice a day twice a Clinics by oral by oral day by route for 7 route for 7 oral route days. days. for 7 days. tramadol 50 tramadol 50 No tramadol [facility] mg tablet mg tablet 50 mg Comm uni TAKE 1 TAKE 1 tablet ty TABLET BY TABLET BY TAKE 1 [facility] MOUTH AT MOUTH AT TABLET BY l BEDTIME AND BEDTIME AND MOUTH AT Clinics IN MORNING IN MORNING BEDTIME AND IN MORNING amlodipine amlodipine No amlodipine [facility] 5 mg tablet 5 mg tablet 5 mg C [facility] TAKE 1 TAKE 1 tablet ty TABLET BY TABLET BY TAKE 1 [facility] MOUTH EVERY MOUTH EVERY TABLET BY l DAY DAY MOUTH Clinics EVERY DAY atorvastati atorvastati No atorvastat [facility] n 20 mg n 20 mg in 20 mg Commu ni tablet TAKE tablet TAKE tablet ty 1 TABLET BY 1 TABLET BY TAKE 1 Hospita MOUTH EVERY MOUTH EVERY TABLET BY l DAY FOR 90 DAY FOR 90 MOUTH Cl inics DAYS DAYS EVERY DAY FOR 90 DAYS BD Kalee 2nd BD Kalee 2nd No BD Kalee [facility] Gen Pen Gen Pen 2nd Gen Commun i Needle 32 Needle 32 Pen Needle ty gauge x gauge x 32 gauge x [facility] " 1 " 1 " 1 l TIME A DAY TIME A DAY TIME A DAY Clinics ceftriaxone ceftriaxone No 500mg ceftriaxon [facility] 500 mg 500 mg e 500 mg Communi solution solution solution ty for for for Hospita injection injection injection l Take 500 mg Take 500 mg Take 500 Clinics by by mg by injection injection injection route. route. route. cholecalcif cholecalcif No cholecalci [facility] ghada ghada ferol Communi (vitamin (vitamin (vitamin ty D3) 1,250 D3) 1,250 D3) 1,250 Hospita mcg (50,000 mcg (50,000 mcg l unit) unit) (50,000 Clinics capsule capsule unit) TAKE 1 TAKE 1 capsule CAPSULE CAPSULE TAKE 1 EVERY 15 EVERY 15 CAPSULE DAYS DAYS EVERY 15 DAYS clonazepam clonazepam No clonazepam [facility] 0.5 mg 0.5 mg 0.5 mg Communi tablet TAKE tablet TAKE tablet ty 1 TABLET BY 1 TABLET BY TAKE 1 Hospita MOUTH EVERY MOUTH EVERY TABLET BY l DAY DAY MOUTH Clinics NEEDED NEEDED EVERY DAY NEEDED cyclobenzap cyclobenzap No cyclobenza [facility] rine 10 mg rine 10 mg rita 10 Communi tablet tablet mg tablet ty Hospita l Clinics diclofenac diclofenac No diclofenac [facility] sodium 75 sodium 75 sodium 75 Communi mg mg mg ty tablet,indira tablet,indira tablet,del Hospita yed release yed release ayed l release Clinics docusate docusate No docusate Swe [facility] sodium 100 sodium 100 sodium 100 Communi mg capsule mg capsule mg capsule ty TAKE 1 TAKE 1 TAKE 1 Hospita CAPSULE BY CAPSULE BY CAPSULE BY l MOUTH EVERY MOUTH EVERY MOUTH Clinics DAY DAY EVERY DAY famotidine famotidine No famotidine [facility] 20 mg 20 mg 20 mg Communi tablet Take tablet Take tablet ty 1 tablet 1 tablet Take 1 Hospi ta daily by daily by tablet l mouth mouth daily by Clinics mouth ferrous ferrous No ferrous [facility] sulfate 220 sulfate 220 sulfate Communi mg (44 mg mg (44 mg 220 mg (44 ty iron)/5 mL iron)/5 mL mg iron)/5 Hospita oral elixir oral elixir mL oral l Take 5 ML Take 5 ML elixir Cli nics BID by BID by Take 5 ML mouth mouth BID by mouth glipizide glipizide No glipizide [facility] ER 2.5 mg ER 2.5 mg ER 2.5 mg Communi tablet, tablet, tablet, ty extended extended extended [facility] release 24 release 24 release 24 l hr hr hr Clinics Humatrope 6 Humatrope 6 No Humatrope [facility] mg (18 mg (18 6 mg (18 Communi unit) unit) unit) ty injection injection injection Hospita cartridge cartridge cartridge l INJECT INJECT INJECT Clinics 0.3MG 0.3MG 0.3MG SUBCUTANEOU SUBCUTANEOU SUBCUTANEO SLY EVERY SLY EVERY USLY EVERY DAY DAY DAY hydrocortis hydrocortis No hydrocorti [facility] one 20 mg one 20 mg sone 20 mg Communi tablet TAKE tablet TAKE tablet ty 2 TABLETS 2 TABLETS TAKE 2 [facility] BY MOUTH BY MOUTH TABLETS BY l EVERY DAY EVERY DAY MOUTH Clin ics IN THE IN THE EVERY DAY MORNING MORNING IN THE MORNING isosorbide isosorbide No isosorbide [facility] mononitrate mononitrate mononitrat Communi ER 30 mg ER 30 mg e ER 30 mg t y tablet,exte tablet,exte tablet,ext Hospita nded nded ended l release 24 release 24 release 24 Clinics hr TAKE 1 hr TAKE 1 hr TAKE 1 TABLET BY TABLET BY TABLET BY MOUTH EVERY MOUTH EVERY MOUTH DAY DAY EVERY DAY Klor-Con 10 Klor-Con 10 No Klor-Con [facility] mEq mEq 10 mEq Communi tablet,exte tablet,exte tablet,ext ty nded nded ended Hospita release release release l TAKE 1 TAKE 1 TAKE 1 Clinics TABLET BY TABLET BY TABLET BY MOUTH EVERY MOUTH EVERY MOUTH DAY WITH DAY WITH EVERY DAY FOOD FOOD WITH FOOD levothyroxi levothyroxi No levothyrox [facility] ne 112 mcg ne 112 mcg ine 112 Communi tablet 1 tablet 1 mcg tablet t y TAB DAILY TAB DAILY 1 TAB Hosp [facility]yl 1/2 HR. 1/2 HR. DAILY 1/2 l BEFORE BEFORE HR. BEFORE Clini cs BREAKFAST BREAKFAST BREAKFAST WITH WATER WITH WATER WITH WATER lidocaine lidocaine No 2.1mL lidocaine [facility] (PF) 10 (PF) 10 (PF) 10 Commun i mg/mL (1 %) mg/mL (1 %) mg/mL (1 ty injection injection %) Hospi ta solution solution injection l Take 2.1 mL Take 2.1 mL solution Clinics by by Take 2.1 injection injection mL by route. route. injection route. lidocaine lidocaine No 2.1mL Q1D lidocaine [facility] (PF) 50 (PF) 50 (PF) 50 Commun i mg/5 mL (1 mg/5 mL (1 mg/5 mL (1 ty %) %) %) [facility] injection injection injection l syringe syringe syringe Clinic s Take 2.1 mL Take 2.1 mL Take 2.1 every day every day mL every by by day by injection injection injection route for 4 route for 4 route for days. pt days. pt 4 days. pt tolerated tolerated tolerated well, well, well, wasted 2.9 wasted 2.9 wasted 2.9 ML ML ML lidocaine 5 lidocaine 5 No lidocaine [facility] % topical % topical 5 % Commu ni patch patch topical ty patch [facility] liothyronin liothyronin No liothyroni [facility] e 5 mcg e 5 mcg ne 5 mcg Commu ni tablet tablet tablet ty [facility] mirtazapine mirtazapine No mirtazapin [facility] 15 mg 15 mg e 15 mg Communi tablet TAKE tablet TAKE tablet ty 1 TABLET BY 1 TABLET BY TAKE 1 [facility] MOUTH MOUTH TABLET BY l EVERYDAY AT EVERYDAY AT MOUTH Clinics BEDTIME BEDTIME EVERYDAY AT BEDTIME nitroglycer nitroglycer No 1 nitroglyce [facility] in 0.4 mg in 0.4 mg rin 0.4 mg Communi sublingual sublingual sublingual ty tablet tablet tablet [facility] Place [address] 1 l tablet as tablet as tablet as Clinics needed by needed by needed by sublingual sublingual sublingual route. route. route. omeprazole omeprazole No omeprazole [facility] 20 mg 20 mg 20 mg Communi capsule,del capsule,del capsule,de ty ayed ayed layed [facility] release release release l TAKE 1 TAKE 1 TAKE 1 Clinics CAPSULE BY CAPSULE BY CAPSULE BY MOUTH EVERY MOUTH EVERY MOUTH MORNING MORNING EVERY MORNING OneTouch OneTouch No OneTouch Swe made[facility] Lancets 30 Lancets 30 Lancets 30 ty gauge TEST gauge TEST gauge TEST [facility] TWICE A DAY TWICE A DAY TWICE A l DAY Clinics OneTouch OneTouch No OneTouch Swe madeleine Verio Flex Verio Flex Verio Flex Communi Meter FOR Meter FOR Meter FOR ty TESTING.1 TESTING.1 TESTING.1 Hospita BOX ICD 10 BOX ICD 10 BOX ICD 10 l E11.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.65 Clinics OneTouch OneTouch No OneTouch Swe madeleine Verio test Verio test Verio test Communi strips TEST strips TEST strips ty TWICE A DAY TWICE A DAY TEST TWICE Hospita A DAY l Clinics pantoprazol pantoprazol No pantoprazo [facility] e 40 mg e 40 mg le 40 mg Commu ni tablet,indira tablet,indira tablet,del ty yed release yed release ayed H ospita Take 1 Take 1 release l tablet BID tablet BID Take 1 C linics by mouth by mouth tablet BID by mouth phenazopyri phenazopyri No phenazopyr [facility] dine 200 mg dine 200 mg idine 200 Communi tablet TAKE tablet TAKE mg tablet ty 1 TABLET BY 1 TABLET BY TAKE 1 Hospita MOUTH THREE MOUTH THREE TABLET BY l TIMES A DAY TIMES A DAY MOUTH Clinics FOR 3 DAYS FOR 3 DAYS THREE TIMES A DAY FOR 3 DAYS potassium potassium No potassium [facility] chloride ER chloride ER chloride Communi 20 mEq 20 mEq ER 20 mEq ty tablet,exte tablet,exte tablet,ext Hospita nded nded ended l release(par release(par release(pa Clinics t/cryst) t/cryst) rt/cryst) TAKE 1 TAKE 1 TAKE 1 TABLET BY TABLET BY TABLET BY MOUTH EVERY MOUTH EVERY MOUTH DAY DAY EVERY DAY Santyl 250 Santyl 250 No Santyl 250 [facility] unit/gram unit/gram unit/gram Communi topical topical topical ty ointment ointment ointment [facility] APPLY A APPLY A APPLY A l DIONY [facility] THICK THICK THICK AMOUNT TO AMOUNT TO AMOUNT TO WOUND 3 WOUND 3 WOUND 3 TIMES A TIMES A TIMES A WEEK WEEK WEEK sotalol 160 sotalol 160 No sotalol [facility] mg tablet mg tablet 160 mg Com raz TAKE 1 TAKE 1 tablet ty TABLET BY TABLET BY TAKE 1 [facility] MOUTH EVERY MOUTH EVERY TABLET BY l DAY DAY MOUTH Clinics EVERY DAY sulfamethox sulfamethox No sulfametho [facility] azole 800 azole 800 xazole 800 Communi mg-trimetho mg-trimetho mg-trimeth ty prim 160 mg prim 160 mg oprim 160 Hospita tablet TAKE tablet TAKE mg tablet l 1 TABLET BY 1 TABLET BY TAKE 1 Clinics MOUTH EVERY MOUTH EVERY TABLET BY 12 HOURS 12 HOURS MOUTH FOR 7 DAYS FOR 7 DAYS EVERY 12 HOURS FOR 7 DAYS Suprax 200 Suprax 200 No 5mL BID Suprax 200 [facility] mg/5 mL mg/5 mL mg/5 mL Commun i oral oral oral ty suspension suspension suspension Hospita Take 5 mL Take 5 mL Take 5 mL l twice a day twice a day twice a Clinics by oral by oral day by route for 7 route for 7 oral route days. days. for 7 days. tramadol 50 tramadol 50 No tramadol [facility] mg tablet mg tablet 50 mg Comm uni TAKE 1 TAKE 1 tablet ty TABLET BY TABLET BY TAKE 1 [facility] MOUTH AT MOUTH AT TABLET BY l BEDTIME AND BEDTIME AND MOUTH AT Clinics IN MORNING IN MORNING BEDTIME AND IN MORNING amlodipine amlodipine No amlodipine [facility] 5 mg tablet 5 mg tablet 5 mg C [facility] TAKE 1 TAKE 1 tablet ty TABLET BY TABLET BY TAKE 1 [facility] MOUTH EVERY MOUTH EVERY TABLET BY l DAY DAY MOUTH Clinics EVERY DAY atorvastati atorvastati No atorvastat [facility] n 20 mg n 20 mg in 20 mg Commu ni tablet TAKE tablet TAKE tablet ty 1 TABLET BY 1 TABLET BY TAKE 1 Hospita MOUTH EVERY MOUTH EVERY TABLET BY l DAY FOR 90 DAY FOR 90 MOUTH Cl inics DAYS DAYS EVERY DAY FOR 90 DAYS BD Kalee 2nd BD Kalee 2nd No BD Kalee [facility] Gen Pen Gen Pen 2nd Gen Commun i Needle 32 Needle 32 Pen Needle ty gauge x gauge x 32 gauge x [facility] 32" 1 " 1 " 1 l TIME A DAY TIME A DAY TIME A DAY Clinics ceftriaxone ceftriaxone No 500mg ceftriaxon [facility] 500 mg 500 mg e 500 mg Communi solution solution solution ty for for for Hospita injection injection injection l Take 500 mg Take 500 mg Take 500 Clinics by by mg by injection injection injection route. route. route. cholecalcif cholecalcif No cholecalci [facility] ghada ghada ferol Communi (vitamin (vitamin (vitamin ty D3) 1,250 D3) 1,250 D3) 1,250 Hospita mcg (50,000 mcg (50,000 mcg l unit) unit) (50,000 Clinics capsule capsule unit) TAKE 1 TAKE 1 capsule CAPSULE CAPSULE TAKE 1 EVERY 15 EVERY 15 CAPSULE DAYS DAYS EVERY 15 DAYS clonazepam clonazepam No clonazepam [facility] 0.5 mg 0.5 mg 0.5 mg Communi tablet TAKE tablet TAKE tablet ty 1 TABLET BY 1 TABLET BY TAKE 1 Hospita MOUTH EVERY MOUTH EVERY TABLET BY l DAY DAY MOUTH Clinics NEEDED NEEDED EVERY DAY NEEDED cyclobenzap cyclobenzap No cyclobenza [facility] rine 10 mg rine 10 mg rita 10 Communi tablet tablet mg tablet ty Hospita l Clinics diclofenac diclofenac No diclofenac [facility] sodium 75 sodium 75 sodium 75 Communi mg mg mg ty tablet,indira tablet,indira tablet,del Hospita yed release yed release ayed l release Clinics docusate docusate No docusate Swe [facility] sodium 100 sodium 100 sodium 100 Communi mg capsule mg capsule mg capsule ty TAKE 1 TAKE 1 TAKE 1 Hospita CAPSULE BY CAPSULE BY CAPSULE BY l MOUTH EVERY MOUTH EVERY MOUTH Clinics DAY DAY EVERY DAY famotidine famotidine No famotidine [facility] 20 mg 20 mg 20 mg Communi tablet Take tablet Take tablet ty 1 tablet 1 tablet Take 1 Hospi ta daily by daily by tablet l mouth mouth daily by Clinics mouth ferrous ferrous No ferrous [facility] sulfate 220 sulfate 220 sulfate Communi mg (44 mg mg (44 mg 220 mg (44 ty iron)/5 mL iron)/5 mL mg iron)/5 Hospita oral elixir oral elixir mL oral l Take 5 ML Take 5 ML elixir Cli nics BID by BID by Take 5 ML mouth mouth BID by mouth glipizide glipizide No glipizide [facility] ER 2.5 mg ER 2.5 mg ER 2.5 mg Communi tablet, tablet, tablet, ty extended extended extended [facility] release 24 release 24 release 24 l hr hr hr Clinics Humatrope 6 Humatrope 6 No Humatrope [place] mg (18 mg (18 6 mg (18 Communi unit) unit) unit) ty injection injection injection [facility] cartridge cartridge cartridge l INJECT INJECT INJECT [facility] 0.3MG 0.3MG 0.3MG SUBCUTANEOU SUBCUTANEOU SUBCUTANEO SLY EVERY SLY EVERY USLY EVERY DAY DAY DAY hydrocortis hydrocortis No hydrocorti [place] one 20 mg one 20 mg sone 20 mg Communi tablet TAKE tablet TAKE tablet ty 2 TABLETS 2 TABLETS TAKE 2 [facility] BY MOUTH BY MOUTH TABLETS BY l EVERY DAY EVERY DAY MOUTH Clin ics IN THE IN THE EVERY DAY MORNING MORNING IN THE MORNING isosorbide isosorbide No isosorbide [place] mononitrate mononitrate mononitrat Communi ER 30 mg ER 30 mg e ER 30 mg t y tablet,exte tablet,exte tablet,ext Hospita nded nded ended l release 24 release 24 release 24 Clinics hr TAKE 1 hr TAKE 1 hr TAKE 1 TABLET BY TABLET BY TABLET BY MOUTH EVERY MOUTH EVERY MOUTH DAY DAY EVERY DAY Klor-Con 10 Klor-Con 10 No Klor-Con [place] mEq mEq 10 mEq Communi tablet,exte tablet,exte tablet,ext ty nded nded ended Hospita release release release l TAKE 1 TAKE 1 TAKE 1 Clinics TABLET BY TABLET BY TABLET BY MOUTH EVERY MOUTH EVERY MOUTH DAY WITH DAY WITH EVERY DAY FOOD FOOD WITH FOOD levothyroxi levothyroxi No levothyrox [place] ne 112 mcg ne 112 mcg ine 112 Communi tablet 1 tablet 1 mcg tablet t y TAB DAILY TAB DAILY 1 TAB Hosp meryl 1/2 HR. 1/2 HR. DAILY 1/2 l BEFORE BEFORE HR. BEFORE Clini cs BREAKFAST BREAKFAST BREAKFAST WITH WATER WITH WATER WITH WATER lidocaine lidocaine No 2.1mL lidocaine [place] (PF) 10 (PF) 10 (PF) 10 Commun i mg/mL (1 %) mg/mL (1 %) mg/mL (1 ty injection injection %) Hospi ta solution solution injection l Take 2.1 mL Take 2.1 mL solution Clinics by by Take 2.1 injection injection mL by route. route. injection route. lidocaine lidocaine No 2.1mL Q1D lidocaine [place] (PF) 50 (PF) 50 (PF) 50 Commun i mg/5 mL (1 mg/5 mL (1 mg/5 mL (1 ty %) %) %) Hospita injection injection injection l syringe syringe syringe Clinic s Take 2.1 mL Take 2.1 mL Take 2.1 every day every day mL every by by day by injection injection injection route for 4 route for 4 route for days. pt days. pt 4 days. pt tolerated tolerated tolerated well, well, well, wasted 2.9 wasted 2.9 wasted 2.9 ML ML ML lidocaine 5 lidocaine 5 No lidocaine [place] % topical % topical 5 % [facility] ni [facility] li[facility] li[facility]ronin No liothyroni [place] e 5 mcg e 5 mcg ne 5 mcg Commu ni tablet tablet tablet ty [facility] mirtazapine mirtazapine No mirtazapin [place] 15 mg 15 mg e 15 mg Communi tablet TAKE tablet TAKE tablet ty 1 TABLET BY 1 TABLET BY TAKE 1 Hospita MOUTH MOUTH TABLET BY l EVERYDAY AT EVERYDAY AT MOUTH Clinics BEDTIME BEDTIME EVERYDAY AT BEDTIME nitroglycer nitroglycer No 1 nitroglyce [place] in 0.4 mg in 0.4 mg rin 0.4 mg Communi sublingual sublingual sublingual ty tablet tablet tablet Hospita Place [address] 1 l tablet as tablet as tablet as Clinics needed by needed by needed by sublingual sublingual sublingual route. route. route. omeprazole omeprazole No omeprazole [facility] 20 mg 20 mg 20 mg Communi capsule,del capsule,del capsule,de ty ayed ayed layed Hospita release release release l TAKE 1 TAKE 1 TAKE 1 Clinics CAPSULE BY CAPSULE BY CAPSULE BY MOUTH EVERY MOUTH EVERY MOUTH MORNING MORNING EVERY MORNING OneTouch OneTouch No OneTouch [facility] Lancets 30 Lancets 30 Lancets 30 ty gauge TEST gauge TEST gauge TEST Hospita TWICE A DAY TWICE A DAY TWICE A l DAY Clinics OneTouch OneTouch No OneTouch Swe madeleine Verio Flex Verio Flex Verio Flex Communi Meter FOR Meter FOR Meter FOR ty TESTING.1 TESTING.1 TESTING.1 Hospita BOX ICD 10 BOX ICD 10 BOX ICD 10 l E11.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.65 Clinics OneTouch OneTouch No OneTouch Swe madeleine Verio test Verio test Verio test Communi strips TEST strips TEST strips ty TWICE A DAY TWICE A DAY TEST TWICE Hospita A DAY l Clinics pantoprazol pantoprazol No pantoprazo [place] e 40 mg e 40 mg le 40 mg Commu ni tablet,indira tablet,indira tablet,del ty yed release yed release ayed H ospita Take 1 Take 1 release l tablet BID tablet BID Take 1 C linics by mouth by mouth tablet BID by mouth phenazopyri phenazopyri No phenazopyr [facility] dine 200 mg dine 200 mg idine 200 Communi tablet TAKE tablet TAKE mg tablet ty 1 TABLET BY 1 TABLET BY TAKE 1 Hospita MOUTH THREE MOUTH THREE TABLET BY l TIMES A DAY TIMES A DAY MOUTH Clinics FOR 3 DAYS FOR 3 DAYS THREE TIMES A DAY FOR 3 DAYS potassium potassium No potassium [facility] chloride ER chloride ER chloride Communi 20 mEq 20 mEq ER 20 mEq ty tablet,exte tablet,exte tablet,ext Hospita nded nded ended l release(par release(par release(pa Clinics t/cryst) t/cryst) rt/cryst) TAKE 1 TAKE 1 TAKE 1 TABLET BY TABLET BY TABLET BY MOUTH EVERY MOUTH EVERY MOUTH DAY DAY EVERY DAY Santyl 250 Santyl 250 No Santyl 250 [facility] unit/gram unit/gram unit/gram Communi topical topical topical ty ointment ointment ointment [facility] APPLY A APPLY A APPLY A l DIONY DIONY DIONY [facility] THICK THICK THICK AMOUNT TO AMOUNT TO AMOUNT TO WOUND 3 WOUND 3 WOUND 3 TIMES A TIMES A TIMES A WEEK WEEK WEEK sotalol 160 sotalol 160 No sotalol [facility] mg tablet mg tablet 160 mg Com raz TAKE 1 TAKE 1 tablet ty TABLET BY TABLET BY TAKE 1 [facility] MOUTH EVERY MOUTH EVERY TABLET BY l DAY DAY MOUTH Clinics EVERY DAY sulfamethox sulfamethox No sulfametho [facility] azole 800 azole 800 xazole 800 Communi mg-trimetho mg-trimetho mg-trimeth ty prim 160 mg prim 160 mg oprim 160 Hospita tablet TAKE tablet TAKE mg tablet l 1 TABLET BY 1 TABLET BY TAKE 1 Clinics MOUTH EVERY MOUTH EVERY TABLET BY 12 HOURS 12 HOURS MOUTH FOR 7 DAYS FOR 7 DAYS EVERY 12 HOURS FOR 7 DAYS Suprax 200 Suprax 200 No 5mL BID Suprax 200 [place] mg/5 mL mg/5 mL mg/5 mL Commun i oral oral oral ty suspension suspension suspension [facility] Take 5 mL Take 5 mL Take 5 mL l twice a day twice a day twice a Clinics by oral by oral day by route for 7 route for 7 oral route days. days. for 7 days. tramadol 50 tramadol 50 No tramadol [place] mg tablet mg tablet 50 mg Comm uni TAKE 1 TAKE 1 tablet ty TABLET BY TABLET BY TAKE 1 [facility] MOUTH AT MOUTH AT TABLET BY l BEDTIME AND BEDTIME AND MOUTH AT Clinics IN MORNING IN MORNING BEDTIME AND IN MORNING amlodipine amlodipine No amlodipine [facility] 5 mg tablet 5 mg tablet 5 mg C ommuni TAKE 1 TAKE 1 tablet ty TABLET BY TABLET BY TAKE 1 [facility] MOUTH EVERY MOUTH EVERY TABLET BY l DAY DAY MOUTH Clinics EVERY DAY atorvastati atorvastati No atorvastat [facility] n 20 mg n 20 mg in 20 mg Commu ni tablet TAKE tablet TAKE tablet ty 1 TABLET BY 1 TABLET BY TAKE 1 Hospita MOUTH EVERY MOUTH EVERY TABLET BY l DAY FOR 90 DAY FOR 90 MOUTH Cl inics DAYS DAYS EVERY DAY FOR 90 DAYS BD Kalee 2nd BD Kalee 2nd No BD Kalee [place] Gen Pen Gen Pen 2nd Gen Commun i Needle 32 Needle 32 Pen Needle ty gauge x gauge x 32 gauge x Hos [facility] " 1 " 1 " 1 l TIME A DAY TIME A DAY TIME A DAY Clinics ceftriaxone ceftriaxone No 500mg ceftriaxon [facility] 500 mg 500 mg e 500 mg Communi solution solution solution ty for for for Hospita injection injection injection l Take 500 mg Take 500 mg Take 500 Clinics by by mg by injection injection injection route. pt route. pt route. pt tolerated tolerated tolerated well well well cholecalcif cholecalcif No cholecalci [facility] ghada ghada ferol Communi (vitamin (vitamin (vitamin ty D3) 1,250 D3) 1,250 D3) 1,250 Hospita mcg (50,000 mcg (50,000 mcg l unit) unit) (50,000 Clinics capsule capsule unit) TAKE 1 TAKE 1 capsule CAPSULE CAPSULE TAKE 1 EVERY 15 EVERY 15 CAPSULE DAYS DAYS EVERY 15 DAYS clonazepam clonazepam No clonazepam [facility] 0.5 mg 0.5 mg 0.5 mg Communi tablet TAKE tablet TAKE tablet ty 1 TABLET BY 1 TABLET BY TAKE 1 Hospita MOUTH EVERY MOUTH EVERY TABLET BY l DAY DAY MOUTH Clinics NEEDED NEEDED EVERY DAY NEEDED cyclobenzap cyclobenzap No cyclobenza [facility] rine 10 mg rine 10 mg rita 10 Communi tablet tablet mg tablet ty Hospita l Clinics diclofenac diclofenac No diclofenac [place] sodium 75 sodium 75 sodium 75 Communi mg mg mg ty tablet,indira tablet,indira tablet,del Hospita yed release yed release ayed l release Clinics docusate docusate No docusate Swe [facility] sodium 100 sodium 100 sodium 100 Communi mg capsule mg capsule mg capsule ty TAKE 1 TAKE 1 TAKE 1 Hospita CAPSULE BY CAPSULE BY CAPSULE BY l MOUTH EVERY MOUTH EVERY MOUTH Clinics DAY DAY EVERY DAY famotidine famotidine No famotidine [facility] 20 mg 20 mg 20 mg Communi tablet Take tablet Take tablet ty 1 tablet 1 tablet Take 1 Hospi ta daily by daily by tablet l mouth mouth daily by Clinics mouth ferrous ferrous No ferrous [place] sulfate 220 sulfate 220 sulfate Communi mg (44 mg mg (44 mg 220 mg (44 ty iron)/5 mL iron)/5 mL mg iron)/5 Hospita oral elixir oral elixir mL oral l Take 5 ML Take 5 ML elixir Cli nics BID by BID by Take 5 ML mouth mouth BID by mouth glipizide glipizide No glipizide [facility] ER 2.5 mg ER 2.5 mg ER 2.5 mg Communi tablet, tablet, tablet, ty extended extended extended [facility] release 24 release 24 release 24 l hr hr hr Clinics Humatrope 6 Humatrope 6 No Humatrope [place] mg (18 mg (18 6 mg (18 Communi unit) unit) unit) ty injection injection injection [facility] cartridge cartridge cartridge l INJECT INJECT INJECT Clinics 0.3MG 0.3MG 0.3MG SUBCUTANEOU SUBCUTANEOU SUBCUTANEO SLY EVERY SLY EVERY USLY EVERY DAY DAY DAY hydrocortis hydrocortis No hydrocorti [place] one 20 mg one 20 mg sone 20 mg Communi tablet TAKE tablet TAKE tablet ty 2 TABLETS 2 TABLETS TAKE 2 [facility] BY MOUTH BY MOUTH TABLETS BY l EVERY DAY EVERY DAY MOUTH Clin ics IN THE IN THE EVERY DAY MORNING MORNING IN THE MORNING isosorbide isosorbide No isosorbide [facility] mononitrate mononitrate mononitrat Communi ER 30 mg ER 30 mg e ER 30 mg t y tablet,exte tablet,exte tablet,ext Hospita nded nded ended l release 24 release 24 release 24 Clinics hr TAKE 1 hr TAKE 1 hr TAKE 1 TABLET BY TABLET BY TABLET BY MOUTH EVERY MOUTH EVERY MOUTH DAY DAY EVERY DAY Klor-Con 10 Klor-Con 10 No Klor-Con [facility] mEq mEq 10 mEq Communi tablet,exte tablet,exte tablet,ext ty nded nded ended Hospita release release release l TAKE 1 TAKE 1 TAKE 1 Clinics TABLET BY TABLET BY TABLET BY MOUTH EVERY MOUTH EVERY MOUTH DAY WITH DAY WITH EVERY DAY FOOD FOOD WITH FOOD levothyroxi levothyroxi No levothyrox [facility] ne 112 mcg ne 112 mcg ine 112 Communi tablet 1 tablet 1 mcg tablet t y TAB DAILY TAB DAILY 1 TAB Hosp [facility]yl 1/2 HR. 1/2 HR. DAILY 1/2 l BEFORE BEFORE HR. BEFORE Clini cs BREAKFAST BREAKFAST BREAKFAST WITH WATER WITH WATER WITH WATER lidocaine lidocaine No 2.1mL lidocaine [facility] (PF) 10 (PF) 10 (PF) 10 Commun i mg/mL (1 %) mg/mL (1 %) mg/mL (1 ty injection injection %) Hospi ta solution solution injection l Take 2.1 mL Take 2.1 mL solution Clinics by by Take 2.1 injection injection mL by route. route. injection route. lidocaine lidocaine No 2.1mL Q1D lidocaine [facility] (PF) 50 (PF) 50 (PF) 50 Commun i mg/5 mL (1 mg/5 mL (1 mg/5 mL (1 ty %) %) %) Hospita injection injection injection l syringe syringe syringe Clinic s Take 2.1 mL Take 2.1 mL Take 2.1 every day every day mL every by by day by injection injection injection route for 4 route for 4 route for days. pt days. pt 4 days. pt tolerated tolerated tolerated well; well; well; wasted 2.9 wasted 2.9 wasted 2.9 mL mL mL lidocaine 5 lidocaine 5 No lidocaine [facility] % topical % topical 5 % Commu ni patch patch topical ty patch [facility] liothyronin liothyronin No liothyroni [place] e 5 mcg e 5 mcg ne 5 mcg Commu ni tablet tablet tablet ty [facility] Clinics mirtazapine mirtazapine No mirtazapin [facility] 15 mg 15 mg e 15 mg Communi tablet TAKE tablet TAKE tablet ty 1 TABLET BY 1 TABLET BY TAKE 1 [facility] MOUTH MOUTH TABLET BY l EVERYDAY AT EVERYDAY AT MOUTH Clinics BEDTIME BEDTIME EVERYDAY AT BEDTIME nitroglycer nitroglycer No 1 nitroglyce [facility] in 0.4 mg in 0.4 mg rin 0.4 mg Communi sublingual sublingual sublingual ty tablet tablet tablet [facility] Place [address] 1 l tablet as tablet as tablet as Clinics needed by needed by needed by sublingual sublingual sublingual route. route. route. omeprazole omeprazole No omeprazole [facility] 20 mg 20 mg 20 mg Communi capsule,del capsule,del capsule,de ty ayed ayed layed [facility] release release release l TAKE 1 TAKE 1 TAKE 1 Clinics CAPSULE BY CAPSULE BY CAPSULE BY MOUTH EVERY MOUTH EVERY MOUTH MORNING MORNING EVERY MORNING OneTouch OneTouch No OneTouch [facility] Lancets 30 Lancets 30 Lancets 30 ty gauge TEST gauge TEST gauge TEST Hospita TWICE A DAY TWICE A DAY TWICE A l DAY Clinics OneTouch OneTouch No OneTouch Swe madeleine Verio Flex Verio Flex Verio Flex Communi Meter FOR Meter FOR Meter FOR ty TESTING.1 TESTING.1 TESTING.1 Hospita BOX ICD 10 BOX ICD 10 BOX ICD 10 l E11.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.65 Clinics OneTouch OneTouch No OneTouch Swe madeleine Verio test Verio test Verio test Communi strips TEST strips TEST strips ty TWICE A DAY TWICE A DAY TEST TWICE Hospita A DAY l Clinics pantoprazol pantoprazol No pantoprazo [facility] e 40 mg e 40 mg le 40 mg Commu ni tablet,indira tablet,indira tablet,del ty yed release yed release ayed H ospita Take 1 Take 1 release l tablet BID tablet BID Take 1 C linics by mouth by mouth tablet BID by mouth phenazopyri phenazopyri No phenazopyr [facility] dine 200 mg dine 200 mg idine 200 Communi tablet TAKE tablet TAKE mg tablet ty 1 TABLET BY 1 TABLET BY TAKE 1 Hospita MOUTH THREE MOUTH THREE TABLET BY l TIMES A DAY TIMES A DAY MOUTH Clinics FOR 3 DAYS FOR 3 DAYS THREE TIMES A DAY FOR 3 DAYS potassium potassium No potassium [facility] chloride ER chloride ER chloride Communi 20 mEq 20 mEq ER 20 mEq ty tablet,exte tablet,exte tablet,ext Hospita nded nded ended l release(par release(par release(pa Clinics t/cryst) t/cryst) rt/cryst) TAKE 1 TAKE 1 TAKE 1 TABLET BY TABLET BY TABLET BY MOUTH EVERY MOUTH EVERY MOUTH DAY DAY EVERY DAY Santyl 250 Santyl 250 No Santyl 250 [facility] unit/gram unit/gram unit/gram Communi topical topical topical ty ointment ointment ointment [facility] APPLY A APPLY A APPLY A l DIONY [facility] THICK THICK THICK AMOUNT TO AMOUNT TO AMOUNT TO WOUND 3 WOUND 3 WOUND 3 TIMES A TIMES A TIMES A WEEK WEEK WEEK sotalol 160 sotalol 160 No sotalol [facility] mg tablet mg tablet 160 mg Com raz TAKE 1 TAKE 1 tablet ty TABLET BY TABLET BY TAKE 1 [facility] MOUTH EVERY MOUTH EVERY TABLET BY l DAY DAY MOUTH Clinics EVERY DAY sulfamethox sulfamethox No sulfametho [facility] azole 800 azole 800 xazole 800 Communi mg-trimetho mg-trimetho mg-trimeth ty prim 160 mg prim 160 mg oprim 160 Hospita tablet TAKE tablet TAKE mg tablet l 1 TABLET BY 1 TABLET BY TAKE 1 Clinics MOUTH EVERY MOUTH EVERY TABLET BY 12 HOURS 12 HOURS MOUTH FOR 7 DAYS FOR 7 DAYS EVERY 12 HOURS FOR 7 DAYS Suprax 200 Suprax 200 No 5mL BID Suprax 200 [facility] mg/5 mL mg/5 mL mg/5 mL Commun i oral oral oral ty suspension suspension suspension Hospita Take 5 mL Take 5 mL Take 5 mL l twice a day twice a day twice a Clinics by oral by oral day by route for 7 route for 7 oral route days. days. for 7 days. tramadol 50 tramadol 50 No tramadol [facility] mg tablet mg tablet 50 mg Comm uni TAKE 1 TAKE 1 tablet ty TABLET BY TABLET BY TAKE 1 [facility] MOUTH AT MOUTH AT TABLET BY l BEDTIME AND BEDTIME AND MOUTH AT Clinics IN MORNING IN MORNING BEDTIME AND IN MORNING amlodipine amlodipine No amlodipine [facility] 5 mg tablet 5 mg tablet 5 mg C [facility] TAKE 1 TAKE 1 tablet ty TABLET BY TABLET BY TAKE 1 [facility] MOUTH EVERY MOUTH EVERY TABLET BY l DAY DAY MOUTH Clinics EVERY DAY atorvastati atorvastati No atorvastat [facility] n 20 mg n 20 mg in 20 mg Commu ni tablet TAKE tablet TAKE tablet ty 1 TABLET BY 1 TABLET BY TAKE 1 Hospita MOUTH EVERY MOUTH EVERY TABLET BY l DAY FOR 90 DAY FOR 90 MOUTH Cl inics DAYS DAYS EVERY DAY FOR 90 DAYS BD Kalee 2nd BD Kalee 2nd No BD Kalee [facility] Gen Pen Gen Pen 2nd Gen Commun i Needle 32 Needle 32 Pen Needle ty gauge x gauge x 32 gauge x Hos [facility] " 1 " 1 " 1 l TIME A DAY TIME A DAY TIME A DAY Clinics ceftriaxone ceftriaxone No 500mg ceftriaxon [facility] 500 mg 500 mg e 500 mg Communi solution solution solution ty for for for Hospita injection injection injection l Take 500 mg Take 500 mg Take 500 Clinics by by mg by injection injection injection route. pt route. pt route. pt tolerated tolerated tolerated well well well cholecalcif cholecalcif No cholecalci [facility] ghada ghada ferol Communi (vitamin (vitamin (vitamin ty D3) 1,250 D3) 1,250 D3) 1,250 Hospita mcg (50,000 mcg (50,000 mcg l unit) unit) (50,000 Clinics capsule capsule unit) TAKE 1 TAKE 1 capsule CAPSULE CAPSULE TAKE 1 EVERY 15 EVERY 15 CAPSULE DAYS DAYS EVERY 15 DAYS clonazepam clonazepam No clonazepam [facility] 0.5 mg 0.5 mg 0.5 mg Communi tablet TAKE tablet TAKE tablet ty 1 TABLET BY 1 TABLET BY TAKE 1 Hospita MOUTH EVERY MOUTH EVERY TABLET BY l DAY DAY MOUTH Clinics NEEDED NEEDED EVERY DAY NEEDED cyclobenzap cyclobenzap No cyclobenza [facility] rine 10 mg rine 10 mg rita 10 Communi tablet tablet mg tablet ty Hospita l Clinics diclofenac diclofenac No diclofenac [facility] sodium 75 sodium 75 sodium 75 Communi mg mg mg ty tablet,indira tablet,indira tablet,del Hospita yed release yed release ayed l release Clinics docusate docusate No docusate Swe [facility] sodium 100 sodium 100 sodium 100 Communi mg capsule mg capsule mg capsule ty TAKE 1 TAKE 1 TAKE 1 Hospita CAPSULE BY CAPSULE BY CAPSULE BY l MOUTH EVERY MOUTH EVERY MOUTH Clinics DAY DAY EVERY DAY famotidine famotidine No famotidine [facility] 20 mg 20 mg 20 mg Communi tablet Take tablet Take tablet ty 1 tablet 1 tablet Take 1 Hospi ta daily by daily by tablet l mouth mouth daily by Clinics mouth ferrous ferrous No ferrous [place] sulfate 220 sulfate 220 sulfate Communi mg (44 mg mg (44 mg 220 mg (44 ty iron)/5 mL iron)/5 mL mg iron)/5 Hospita oral elixir oral elixir mL oral l Take 5 ML Take 5 ML elixir Cli nics BID by BID by Take 5 ML mouth mouth BID by mouth glipizide glipizide No glipizide [facility] ER 2.5 mg ER 2.5 mg ER 2.5 mg Communi tablet, tablet, tablet, ty extended extended extended [facility] release 24 release 24 release 24 l hr hr hr Clinics Humatrope 6 Humatrope 6 No Humatrope [place] mg (18 mg (18 6 mg (18 Communi unit) unit) unit) ty injection injection injection [facility] cartridge cartridge cartridge l INJECT INJECT INJECT Clinics 0.3MG 0.3MG 0.3MG SUBCUTANEOU SUBCUTANEOU SUBCUTANEO SLY EVERY SLY EVERY USLY EVERY DAY DAY DAY hydrocortis hydrocortis No hydrocorti [facility] one 20 mg one 20 mg sone 20 mg Communi tablet TAKE tablet TAKE tablet ty 2 TABLETS 2 TABLETS TAKE 2 [facility] BY MOUTH BY MOUTH TABLETS BY l EVERY DAY EVERY DAY MOUTH Clin ics IN THE IN THE EVERY DAY MORNING MORNING IN THE MORNING isosorbide isosorbide No isosorbide [facility] mononitrate mononitrate mononitrat Communi ER 30 mg ER 30 mg e ER 30 mg t y tablet,exte tablet,exte tablet,ext Hospita nded nded ended l release 24 release 24 release 24 Clinics hr TAKE 1 hr TAKE 1 hr TAKE 1 TABLET BY TABLET BY TABLET BY MOUTH EVERY MOUTH EVERY MOUTH DAY DAY EVERY DAY Klor-Con 10 Klor-Con 10 No Klor-Con [facility] mEq mEq 10 mEq Communi tablet,exte tablet,exte tablet,ext ty nded nded ended Hospita release release release l TAKE 1 TAKE 1 TAKE 1 Clinics TABLET BY TABLET BY TABLET BY MOUTH EVERY MOUTH EVERY MOUTH DAY WITH DAY WITH EVERY DAY FOOD FOOD WITH FOOD levothyroxi levothyroxi No levothyrox [place] ne 112 mcg ne 112 mcg ine 112 Communi tablet 1 tablet 1 mcg tablet t y TAB DAILY TAB DAILY 1 TAB Hosp [facility]yl 1/2 HR. 1/2 HR. DAILY 1/2 l BEFORE BEFORE HR. BEFORE Clini cs BREAKFAST BREAKFAST BREAKFAST WITH WATER WITH WATER WITH WATER lidocaine lidocaine No 2.1mL lidocaine [facility] (PF) 10 (PF) 10 (PF) 10 Commun i mg/mL (1 %) mg/mL (1 %) mg/mL (1 ty injection injection %) Hospi ta solution solution injection l Take 2.1 mL Take 2.1 mL solution Clinics by by Take 2.1 injection injection mL by route. route. injection route. lidocaine lidocaine No 2.1mL Q1D lidocaine [facility] (PF) 50 (PF) 50 (PF) 50 Commun i mg/5 mL (1 mg/5 mL (1 mg/5 mL (1 ty %) %) %) Hospita injection injection injection l syringe syringe syringe Clinic s Take 2.1 mL Take 2.1 mL Take 2.1 every day every day mL every by by day by injection injection injection route for 4 route for 4 route for days. pt days. pt 4 days. pt tolerated tolerated tolerated well, well, well, wasted 2.9 wasted 2.9 wasted 2.9 mL mL mL lidocaine 5 lidocaine 5 No lidocaine [facility] % topical % topical 5 % Commu ni patch [facility] liothyronin liothyronin No liothyroni [place] e 5 mcg e 5 mcg ne 5 mcg Commu ni tablet tablet tablet ty [facility] mirtazapine mirtazapine No mirtazapin [facility] 15 mg 15 mg e 15 mg Communi tablet TAKE tablet TAKE tablet ty 1 TABLET BY 1 TABLET BY TAKE 1 Hospita MOUTH MOUTH TABLET BY l EVERYDAY AT EVERYDAY AT MOUTH Clinics BEDTIME BEDTIME EVERYDAY AT BEDTIME nitroglycer nitroglycer No 1 nitroglyce [facility] in 0.4 mg in 0.4 mg rin 0.4 mg Communi sublingual sublingual sublingual ty tablet tablet tablet [facility] Place [address] 1 l tablet as tablet as tablet as Clinics needed by needed by needed by sublingual sublingual sublingual route. route. route. omeprazole omeprazole No omeprazole [facility] 20 mg 20 mg 20 mg Communi capsule,del capsule,del capsule,de ty ayed ayed layed Hospita release release release l TAKE 1 TAKE 1 TAKE 1 Clinics CAPSULE BY CAPSULE BY CAPSULE BY MOUTH EVERY MOUTH EVERY MOUTH MORNING MORNING EVERY MORNING OneTouch OneTouch No OneTouch Swe [facility] Lancets 30 Lancets 30 Lancets 30 ty gauge TEST gauge TEST gauge TEST [facility] TWICE A DAY TWICE A DAY TWICE A l DAY Clinics OneTouch OneTouch No OneTouch Swe madeleine Verio Flex Verio Flex Verio Flex Communi Meter FOR Meter FOR Meter FOR ty TESTING.1 TESTING.1 TESTING.1 Hospita BOX ICD 10 BOX ICD 10 BOX ICD 10 l E11.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.65 Clinics OneTouch OneTouch No OneTouch Swe madeleine Verio test Verio test Verio test Communi strips TEST strips TEST strips ty TWICE A DAY TWICE A DAY TEST TWICE Hospita A DAY l Clinics pantoprazol pantoprazol No pantoprazo [facility] e 40 mg e 40 mg le 40 mg Commu ni tablet,indira tablet,indira tablet,del ty yed release yed release ayed H ospita Take 1 Take 1 release l tablet BID tablet BID Take 1 C linics by mouth by mouth tablet BID by mouth phenazopyri phenazopyri No phenazopyr [facility] dine 200 mg dine 200 mg idine 200 Communi tablet TAKE tablet TAKE mg tablet ty 1 TABLET BY 1 TABLET BY TAKE 1 Hospita MOUTH THREE MOUTH THREE TABLET BY l TIMES A DAY TIMES A DAY MOUTH Clinics FOR 3 DAYS FOR 3 DAYS THREE TIMES A DAY FOR 3 DAYS potassium potassium No potassium [facility] chloride ER chloride ER chloride Communi 20 mEq 20 mEq ER 20 mEq ty tablet,exte tablet,exte tablet,ext Hospita nded nded ended l release(par release(par release(pa Clinics t/cryst) t/cryst) rt/cryst) TAKE 1 TAKE 1 TAKE 1 TABLET BY TABLET BY TABLET BY MOUTH EVERY MOUTH EVERY MOUTH DAY DAY EVERY DAY Santyl 250 Santyl 250 No Santyl 250 [facility] unit/gram unit/gram unit/gram Communi topical topical topical ty ointment ointment ointment [facility] APPLY A APPLY A APPLY A l DIONY [facility] THICK THICK THICK AMOUNT TO AMOUNT TO AMOUNT TO WOUND 3 WOUND 3 WOUND 3 TIMES A TIMES A TIMES A WEEK WEEK WEEK sotalol 160 sotalol 160 No sotalol [facility] mg tablet mg tablet 160 mg Com raz TAKE 1 TAKE 1 tablet ty TABLET BY TABLET BY TAKE 1 [facility] MOUTH EVERY MOUTH EVERY TABLET BY l DAY DAY MOUTH Clinics EVERY DAY sulfamethox sulfamethox No sulfametho [facility] azole 800 azole 800 xazole 800 Communi mg-trimetho mg-trimetho mg-trimeth ty prim 160 mg prim 160 mg oprim 160 Hospita tablet TAKE tablet TAKE mg tablet l 1 TABLET BY 1 TABLET BY TAKE 1 Clinics MOUTH EVERY MOUTH EVERY TABLET BY 12 HOURS 12 HOURS MOUTH FOR 7 DAYS FOR 7 DAYS EVERY 12 HOURS FOR 7 DAYS Suprax 200 Suprax 200 No 5mL BID Suprax 200 [facility] mg/5 mL mg/5 mL mg/5 mL Commun i oral oral oral ty suspension suspension suspension Hosp[facility] Take 5 mL Take 5 mL Take 5 mL l twice a day twice a day twice a Clinics by oral by oral day by route for 7 route for 7 oral route days. days. for 7 days. tramadol 50 tramadol 50 No tramadol [facility] mg tablet mg tablet 50 mg Comm uni TAKE 1 TAKE 1 tablet ty TABLET BY TABLET BY TAKE 1 [facility] MOUTH AT MOUTH AT TABLET BY l BEDTIME AND BEDTIME AND MOUTH AT Clinics IN MORNING IN MORNING BEDTIME AND IN MORNING amlodipine amlodipine No amlodipine [facility] 5 mg tablet 5 mg tablet 5 mg C [facility] TAKE 1 TAKE 1 tablet ty TABLET BY TABLET BY TAKE 1 [facility] MOUTH EVERY MOUTH EVERY TABLET BY l DAY DAY MOUTH Clinics EVERY DAY atorvastati atorvastati No atorvastat [facility] n 20 mg n 20 mg in 20 mg Commu ni tablet TAKE tablet TAKE tablet ty 1 TABLET BY 1 TABLET BY TAKE 1 Hospita MOUTH EVERY MOUTH EVERY TABLET BY l DAY FOR 90 DAY FOR 90 MOUTH Cl inics DAYS DAYS EVERY DAY FOR 90 DAYS BD Kalee 2nd BD Kalee 2nd No BD Kalee [facility] Gen Pen Gen Pen 2nd Gen Commun i Needle 32 Needle 32 Pen Needle ty gauge x gauge x 32 gauge x [facility] 32" 1 " 1 " 1 l TIME A DAY TIME A DAY TIME A DAY Clinics ceftriaxone ceftriaxone No 500mg ceftriaxon [facility] 500 mg 500 mg e 500 mg Communi solution solution solution ty for for for Hospita injection injection injection l Take 500 mg Take 500 mg Take 500 Clinics by by mg by injection injection injection route. pt route. pt route. pt tolerated tolerated tolerated well well well cholecalcif cholecalcif No cholecalci [facility] ghada ghada ferol Communi (vitamin (vitamin (vitamin ty D3) 1,250 D3) 1,250 D3) 1,250 Hospita mcg (50,000 mcg (50,000 mcg l unit) unit) (50,000 Clinics capsule capsule unit) TAKE 1 TAKE 1 capsule CAPSULE CAPSULE TAKE 1 EVERY 15 EVERY 15 CAPSULE DAYS DAYS EVERY 15 DAYS clonazepam clonazepam No clonazepam [facility] 0.5 mg 0.5 mg 0.5 mg [facility]i tablet TAKE tablet TAKE tablet ty 1 TABLET BY 1 TABLET BY TAKE 1 Hospita MOUTH EVERY MOUTH EVERY TABLET BY l DAY DAY MOUTH Clinics NEEDED NEEDED EVERY DAY NEEDED cyclobenzap cyclobenzap No cyclobenza [facility] rine 10 mg rine 10 mg rita 10 Communi tablet tablet mg tablet ty Hospita l Clinics diclofenac diclofenac No diclofenac [facility] sodium 75 sodium 75 sodium 75 [facility]i mg mg mg ty tablet,indira tablet,indira tablet,del Hospita yed release yed release ayed l release Clinics docusate docusate No docusate [facility] sodium 100 sodium 100 sodium 100 [facility] mg capsule mg capsule mg capsule ty TAKE 1 TAKE 1 TAKE 1 Hospita CAPSULE BY CAPSULE BY CAPSULE BY l MOUTH EVERY MOUTH EVERY MOUTH Clinics DAY DAY EVERY DAY famotidine famotidine No famotidine [facility] 20 mg 20 mg 20 mg Commun[facility] tablet Take tablet Take tablet ty 1 tablet 1 tablet Take 1 Hospi ta daily by daily by tablet l mouth mouth daily by Clinics mouth ferrous ferrous No ferrous [facility] sulfate 220 sulfate 220 sulfate [facility] mg (44 mg mg (44 mg 220 mg (44 ty iron)/5 mL iron)/5 mL mg iron)/5 Hospita oral elixir oral elixir mL oral l Take 5 ML Take 5 ML elixir Cli nics BID by BID by Take 5 ML mouth mouth BID by mouth glipizide glipizide No glipizide [facility] ER 2.5 mg ER 2.5 mg ER 2.5 mg Communi tablet, tablet, tablet, ty extended extended extended [facility] release 24 release 24 release 24 l hr hr hr Clinics Humatrope 6 Humatrope 6 No Humatrope [facility] mg (18 mg (18 6 mg (18 [facility]i unit) unit) unit) ty injection injection injection [facility] cartridge cartridge cartridge l INJECT INJECT INJECT [facility] 0.3MG 0.3MG 0.3MG SUBCUTANEOU SUBCUTANEOU SUBCUTANEO SLY EVERY SLY EVERY USLY EVERY DAY DAY DAY hydrocortis hydrocortis No hydrocorti [facility] one 20 mg one 20 mg sone 20 mg Communi tablet TAKE tablet TAKE tablet ty 2 TABLETS 2 TABLETS TAKE 2 [facility] BY MOUTH BY MOUTH TABLETS BY l EVERY DAY EVERY DAY MOUTH Clin ics IN THE IN THE EVERY DAY MORNING MORNING IN THE MORNING isosorbide isosorbide No isosorbide [facility] mononitrate mononitrate mononitrat Communi ER 30 mg ER 30 mg e ER 30 mg t y tablet,exte tablet,exte tablet,ext Hospita nded nded ended l release 24 release 24 release 24 Clinics hr TAKE 1 hr TAKE 1 hr TAKE 1 TABLET BY TABLET BY TABLET BY MOUTH EVERY MOUTH EVERY MOUTH DAY DAY EVERY DAY Klor-Con 10 Klor-Con 10 No Klor-Con [facility] mEq mEq 10 mEq Communi tablet,exte tablet,exte tablet,ext ty nded nded ended Hospita release release release l TAKE 1 TAKE 1 TAKE 1 Clinics TABLET BY TABLET BY TABLET BY MOUTH EVERY MOUTH EVERY MOUTH DAY WITH DAY WITH EVERY DAY FOOD FOOD WITH FOOD levothyroxi levothyroxi No levothyrox [facility] ne 112 mcg ne 112 mcg ine 112 Communi tablet 1 tablet 1 mcg tablet t y TAB DAILY TAB DAILY 1 TAB [facility] 1/2 HR. 1/2 HR. DAILY 1/2 l BEFORE BEFORE HR. BEFORE Clini cs BREAKFAST BREAKFAST BREAKFAST WITH WATER WITH WATER WITH WATER lidocaine lidocaine No 2.1mL lidocaine [facility] (PF) 10 (PF) 10 (PF) 10 Commun i mg/mL (1 %) mg/mL (1 %) mg/mL (1 ty injection injection %) Hospi ta solution solution injection l Take 2.1 mL Take 2.1 mL solution Clinics by by Take 2.1 injection injection mL by route. route. injection route. lidocaine lidocaine No 2.1mL Q1D lidocaine [facility] (PF) 50 (PF) 50 (PF) 50 Commun i mg/5 mL (1 mg/5 mL (1 mg/5 mL (1 ty %) %) %) Hospita injection injection injection l syringe syringe syringe Clinic s Take 2.1 mL Take 2.1 mL Take 2.1 every day every day mL every by by day by injection injection injection route for 4 route for 4 route for days. pt days. pt 4 days. pt tolerated tolerated tolerated well, well, well, wasted 2.9 wasted 2.9 wasted 2.9 mL mL mL lidocaine 5 lidocaine 5 No lidocaine [facility] % topical % topical 5 % Commu ni patch patch topical ty patch [facility] liothyronin liothyronin No liothyroni [facility] e 5 mcg e 5 mcg ne 5 mcg Commu ni tablet tablet tablet ty [facility] mirtazapine mirtazapine No mirtazapin [facility] 15 mg 15 mg e 15 mg Communi tablet TAKE tablet TAKE tablet ty 1 TABLET BY 1 TABLET BY TAKE 1 Hospita MOUTH MOUTH TABLET BY l EVERYDAY AT EVERYDAY AT MOUTH Clinics BEDTIME BEDTIME EVERYDAY AT BEDTIME nitroglycer nitroglycer No 1 nitroglyce [facility] in 0.4 mg in 0.4 mg rin 0.4 mg Communi sublingual sublingual sublingual ty tablet tablet tablet Hospita Place [address] 1 l tablet as tablet as tablet as Clinics needed by needed by needed by sublingual sublingual sublingual route. route. route. omeprazole omeprazole No omeprazole [facility] 20 mg 20 mg 20 mg Communi capsule,del capsule,del capsule,de ty ayed ayed layed Hospita release release release l TAKE 1 TAKE 1 TAKE 1 Clinics CAPSULE BY CAPSULE BY CAPSULE BY MOUTH EVERY MOUTH EVERY MOUTH MORNING MORNING EVERY MORNING OneTouch OneTouch No OneTouch [facility] Lancets 30 Lancets 30 Lancets 30 ty gauge TEST gauge TEST gauge TEST Hospita TWICE A DAY TWICE A DAY TWICE A l DAY Clinics OneTouch OneTouch No OneTouch Swe made[facility] Verio Flex Verio Flex Verio Flex Communi Meter FOR Meter FOR Meter FOR ty TESTING.1 TESTING.1 TESTING.1 Hospita BOX ICD 10 BOX ICD 10 BOX ICD 10 l E11.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.65 Clinics OneTouch OneTouch No OneTouch Swe made[facility] Verio test Verio test Verio test Communi strips TEST strips TEST strips ty TWICE A DAY TWICE A DAY TEST TWICE Hospita A DAY l Clinics pantoprazol pantoprazol No pantoprazo [facility] e 40 mg e 40 mg le 40 mg Commu ni tablet,indira tablet,indira tablet,del ty yed release yed release ayed H ospita Take 1 Take 1 release l tablet BID tablet BID Take 1 C linics by mouth by mouth tablet BID by mouth phenazopyri phenazopyri No phenazopyr [facility] dine 200 mg dine 200 mg idine 200 Communi tablet TAKE tablet TAKE mg tablet ty 1 TABLET BY 1 TABLET BY TAKE 1 Hospita MOUTH THREE MOUTH THREE TABLET BY l TIMES A DAY TIMES A DAY MOUTH Clinics FOR 3 DAYS FOR 3 DAYS THREE TIMES A DAY FOR 3 DAYS potassium potassium No potassium [facility] chloride ER chloride ER chloride Communi 20 mEq 20 mEq ER 20 mEq ty tablet,exte tablet,exte tablet,ext Hospita nded nded ended l release(par release(par release(in Clinics t/cryst) t/cryst) rt/cryst) TAKE 1 TAKE 1 TAKE 1 TABLET BY TABLET BY TABLET BY MOUTH EVERY MOUTH EVERY MOUTH DAY DAY EVERY DAY Santyl 250 Santyl 250 No Santyl 250 [facility] unit/gram unit/gram unit/gram [facility]i topical topical topical ty ointment ointment ointment [facility] APPLY A APPLY A APPLY A l DIONY [facility] THICK THICK THICK AMOUNT TO AMOUNT TO AMOUNT TO WOUND 3 WOUND 3 WOUND 3 TIMES A TIMES A TIMES A WEEK WEEK WEEK sotalol 160 sotalol 160 No sotalol [facility] mg tablet mg tablet 160 mg Com raz TAKE 1 TAKE 1 tablet ty TABLET BY TABLET BY TAKE 1 [facility] MOUTH EVERY MOUTH EVERY TABLET BY l DAY DAY MOUTH Clinics EVERY DAY sulfamethox sulfamethox No sulfametho [facility] azole 800 azole 800 xazole 800 Communi mg-trimetho mg-trimetho mg-trimeth ty prim 160 mg prim 160 mg oprim 160 Hospita tablet TAKE tablet TAKE mg tablet l 1 TABLET BY 1 TABLET BY TAKE 1 Clinics MOUTH EVERY MOUTH EVERY TABLET BY 12 HOURS 12 HOURS MOUTH FOR 7 DAYS FOR 7 DAYS EVERY 12 HOURS FOR 7 DAYS Suprax 200 Suprax 200 No 5mL BID Suprax 200 [facility] mg/5 mL mg/5 mL mg/5 mL Commun i oral oral oral ty suspension suspension suspension Hospita Take 5 mL Take 5 mL Take 5 mL l twice a day twice a day twice a Clinics by oral by oral day by route for 7 route for 7 oral route days. days. for 7 days. tramadol 50 tramadol 50 No tramadol [facility] mg tablet mg tablet 50 mg Comm uni TAKE 1 TAKE 1 tablet ty TABLET BY TABLET BY TAKE 1 [facility] MOUTH AT MOUTH AT TABLET BY l BEDTIME AND BEDTIME AND MOUTH AT Clinics IN MORNING IN MORNING BEDTIME AND IN MORNING amlodipine amlodipine No amlodipine [facility] 5 mg tablet 5 mg tablet 5 mg [facility] TAKE 1 TAKE 1 tablet ty TABLET BY TABLET BY TAKE 1 [facility] MOUTH EVERY MOUTH EVERY TABLET BY l DAY DAY MOUTH Clinics EVERY DAY atorvastati atorvastati No atorvastat [facility] n 20 mg n 20 mg in 20 mg Commu ni tablet TAKE tablet TAKE tablet ty 1 TABLET BY 1 TABLET BY TAKE 1 Hospita MOUTH EVERY MOUTH EVERY TABLET BY l DAY FOR 90 DAY FOR 90 MOUTH Cl inics DAYS DAYS EVERY DAY FOR 90 DAYS BD Kalee 2nd BD Kalee 2nd No BD Kalee [facility] Gen Pen Gen Pen 2nd Gen Commun i Needle 32 Needle 32 Pen Needle ty gauge x gauge x 32 gauge x [facility] " 1 " 1 " 1 l TIME A DAY TIME A DAY TIME A DAY Clinics ceftriaxone ceftriaxone No 500mg ceftriaxon [facility] 500 mg 500 mg e 500 mg Communi solution solution solution ty for for for Hospita injection injection injection l Take 500 mg Take 500 mg Take 500 Clinics by by mg by injection injection injection route. pt route. pt route. pt tolerated tolerated tolerated well well well cholecalcif cholecalcif No cholecalci [facility] ghada ghada ferol Communi (vitamin (vitamin (vitamin ty D3) 1,250 D3) 1,250 D3) 1,250 Hospita mcg (50,000 mcg (50,000 mcg l unit) unit) (50,000 Clinics capsule capsule unit) TAKE 1 TAKE 1 capsule CAPSULE CAPSULE TAKE 1 EVERY 15 EVERY 15 CAPSULE DAYS DAYS EVERY 15 DAYS clonazepam clonazepam No clonazepam [facility] 0.5 mg 0.5 mg 0.5 mg Communi tablet TAKE tablet TAKE tablet ty 1 TABLET BY 1 TABLET BY TAKE 1 Hospita MOUTH EVERY MOUTH EVERY TABLET BY l DAY DAY MOUTH Clinics NEEDED NEEDED EVERY DAY NEEDED cyclobenzap cyclobenzap No cyclobenza [facility] rine 10 mg rine 10 mg rita 10 Communi tablet tablet mg tablet ty Hospita l Clinics diclofenac diclofenac No diclofenac [facility] sodium 75 sodium 75 sodium 75 Communi mg mg mg ty tablet,indira tablet,indira tablet,del Hospita yed release yed release ayed l release Clinics docusate docusate No docusate [facility] sodium 100 sodium 100 sodium 100 Communi mg capsule mg capsule mg capsule ty TAKE 1 TAKE 1 TAKE 1 Hospita CAPSULE BY CAPSULE BY CAPSULE BY l MOUTH EVERY MOUTH EVERY MOUTH Clinics DAY DAY EVERY DAY famotidine famotidine No famotidine [facility] 20 mg 20 mg 20 mg Communi tablet Take tablet Take tablet ty 1 tablet 1 tablet Take 1 Hospi ta daily by daily by tablet l mouth mouth daily by Clinics mouth ferrous ferrous No ferrous [facility] sulfate 220 sulfate 220 sulfate Communi mg (44 mg mg (44 mg 220 mg (44 ty iron)/5 mL iron)/5 mL mg iron)/5 Hospita oral elixir oral elixir mL oral l Take 5 ML Take 5 ML elixir Cli nics BID by BID by Take 5 ML mouth mouth BID by mouth glipizide glipizide No glipizide [facility] ER 2.5 mg ER 2.5 mg ER 2.5 mg Communi tablet, tablet, tablet, ty extended extended extended [facility] release 24 release 24 release 24 l hr hr hr Clinics Humatrope 6 Humatrope 6 No Humatrope [facility] mg (18 mg (18 6 mg (18 Communi unit) unit) unit) ty injection injection injection Hospita cartridge cartridge cartridge l INJECT INJECT INJECT Clinics 0.3MG 0.3MG 0.3MG SUBCUTANEOU SUBCUTANEOU SUBCUTANEO SLY EVERY SLY EVERY USLY EVERY DAY DAY DAY hydrocortis hydrocortis No hydrocorti [facility] one 20 mg one 20 mg sone 20 mg Communi tablet TAKE tablet TAKE tablet ty 2 TABLETS 2 TABLETS TAKE 2 [facility] BY MOUTH BY MOUTH TABLETS BY l EVERY DAY EVERY DAY MOUTH Clin ics IN THE IN THE EVERY DAY MORNING MORNING IN THE MORNING isosorbide isosorbide No isosorbide [facility] mononitrate mononitrate mononitrat Communi ER 30 mg ER 30 mg e ER 30 mg t y tablet,exte tablet,exte tablet,ext Hospita nded nded ended l release 24 release 24 release 24 Clinics hr TAKE 1 hr TAKE 1 hr TAKE 1 TABLET BY TABLET BY TABLET BY MOUTH EVERY MOUTH EVERY MOUTH DAY DAY EVERY DAY Klor-Con 10 Klor-Con 10 No Klor-Con [facility] mEq mEq 10 mEq Communi tablet,exte tablet,exte tablet,ext ty nded nded ended Hospita release release release l TAKE 1 TAKE 1 TAKE 1 Clinics TABLET BY TABLET BY TABLET BY MOUTH EVERY MOUTH EVERY MOUTH DAY WITH DAY WITH EVERY DAY FOOD FOOD WITH FOOD levothyroxi levothyroxi No levothyrox [facility] ne 112 mcg ne 112 mcg ine 112 Communi tablet 1 tablet 1 mcg tablet t y TAB DAILY TAB DAILY 1 TAB [facility] 1/2 HR. 1/2 HR. DAILY 1/2 l BEFORE BEFORE HR. BEFORE Clini cs BREAKFAST BREAKFAST BREAKFAST WITH WATER WITH WATER WITH WATER lidocaine lidocaine No 2.1mL lidocaine [facility] (PF) 10 (PF) 10 (PF) 10 Commun i mg/mL (1 %) mg/mL (1 %) mg/mL (1 ty injection injection %) Hospi ta solution solution injection l Take 2.1 mL Take 2.1 mL solution Clinics by by Take 2.1 injection injection mL by route. route. injection route. lidocaine lidocaine No 2.1mL Q1D lidocaine [facility] (PF) 50 (PF) 50 (PF) 50 Commun i mg/5 mL (1 mg/5 mL (1 mg/5 mL (1 ty %) %) %) Hospita injection injection injection l syringe syringe syringe Clinic s Take 2.1 mL Take 2.1 mL Take 2.1 every day every day mL every by by day by injection injection injection route for 4 route for 4 route for days. pt days. pt 4 days. pt tolerated tolerated tolerated well, well, well, wasted 2.9 wasted 2.9 wasted 2.9 mL mL mL lidocaine 5 lidocaine 5 No lidocaine [facility] % topical % topical 5 % Commu ni patch patch topical ty patch [facility] liothyronin liothyronin No liothyroni [facility] e 5 mcg e 5 mcg ne 5 mcg Commu ni tablet tablet tablet ty Hospita l Clinics mirtazapine mirtazapine No mirtazapin [facility] 15 mg 15 mg e 15 mg Communi tablet TAKE tablet TAKE tablet ty 1 TABLET BY 1 TABLET BY TAKE 1 Hospita MOUTH MOUTH TABLET BY l EVERYDAY AT EVERYDAY AT MOUTH Clinics BEDTIME BEDTIME EVERYDAY AT BEDTIME nitroglycer nitroglycer No 1 nitroglyce [facility] in 0.4 mg in 0.4 mg rin 0.4 mg Communi sublingual sublingual sublingual ty tablet tablet tablet [facility] Place [address] 1 l tablet as tablet as tablet as Clinics needed by needed by needed by sublingual sublingual sublingual route. route. route. omeprazole omeprazole No omeprazole [facility] 20 mg 20 mg 20 mg Communi capsule,del capsule,del capsule,de ty ayed ayed layed Hospita release release release l TAKE 1 TAKE 1 TAKE 1 Clinics CAPSULE BY CAPSULE BY CAPSULE BY MOUTH EVERY MOUTH EVERY MOUTH MORNING MORNING EVERY MORNING OneTouch OneTouch No OneTouch [facility] Lancets 30 Lancets 30 Lancets 30 ty gauge TEST gauge TEST gauge TEST [facility] TWICE A DAY TWICE A DAY TWICE A l DAY Clinics OneTouch OneTouch No OneTouch Swe madeleine Verio Flex Verio Flex Verio Flex Communi Meter FOR Meter FOR Meter FOR ty TESTING.1 TESTING.1 TESTING.1 Hospita BOX ICD 10 BOX ICD 10 BOX ICD 10 l E11.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.65 Clinics OneTouch OneTouch No OneTouch Swe madeleine Verio test Verio test Verio test Communi strips TEST strips TEST strips ty TWICE A DAY TWICE A DAY TEST TWICE Hospita A DAY l Clinics pantoprazol pantoprazol No pantoprazo [facility] e 40 mg e 40 mg le 40 mg Commu ni tablet,indira tablet,indira tablet,del ty yed release yed release ayed H ospita Take 1 Take 1 release l tablet BID tablet BID Take 1 C linics by mouth by mouth tablet BID by mouth phenazopyri phenazopyri No phenazopyr [facility] dine 200 mg dine 200 mg idine 200 Communi tablet TAKE tablet TAKE mg tablet ty 1 TABLET BY 1 TABLET BY TAKE 1 Hospita MOUTH THREE MOUTH THREE TABLET BY l TIMES A DAY TIMES A DAY MOUTH Clinics FOR 3 DAYS FOR 3 DAYS THREE TIMES A DAY FOR 3 DAYS potassium potassium No potassium [facility] chloride ER chloride ER chloride Communi 20 mEq 20 mEq ER 20 mEq ty tablet,exte tablet,exte tablet,ext Hospita nded nded ended l release(par release(par release(pa Clinics t/cryst) t/cryst) rt/cryst) TAKE 1 TAKE 1 TAKE 1 TABLET BY TABLET BY TABLET BY MOUTH EVERY MOUTH EVERY MOUTH DAY DAY EVERY DAY Santyl 250 Santyl 250 No Santyl 250 [facility] unit/gram unit/gram unit/gram Communi topical topical topical ty ointment ointment ointment [facility] APPLY A APPLY A APPLY A l DIONY [facility] THICK THICK THICK AMOUNT TO AMOUNT TO AMOUNT TO WOUND 3 WOUND 3 WOUND 3 TIMES A TIMES A TIMES A WEEK WEEK WEEK sotalol 160 sotalol 160 No sotalol [facility] mg tablet mg tablet 160 mg Com raz TAKE 1 TAKE 1 tablet ty TABLET BY TABLET BY TAKE 1 [facility] MOUTH EVERY MOUTH EVERY TABLET BY l DAY DAY MOUTH Clinics EVERY DAY sulfamethox sulfamethox No sulfametho [facility] azole 800 azole 800 xazole 800 Communi mg-trimetho mg-trimetho mg-trimeth ty prim 160 mg prim 160 mg oprim 160 Hospita tablet TAKE tablet TAKE mg tablet l 1 TABLET BY 1 TABLET BY TAKE 1 Clinics MOUTH EVERY MOUTH EVERY TABLET BY 12 HOURS 12 HOURS MOUTH FOR 7 DAYS FOR 7 DAYS EVERY 12 HOURS FOR 7 DAYS Suprax 200 Suprax 200 No 5mL BID Suprax 200 [facility] mg/5 mL mg/5 mL mg/5 mL Commun i oral oral oral ty suspension suspension suspension Hospita Take 5 mL Take 5 mL Take 5 mL l twice a day twice a day twice a Clinics by oral by oral day by route for 7 route for 7 oral route days. days. for 7 days. tramadol 50 tramadol 50 No tramadol [facility] mg tablet mg tablet 50 mg Comm uni TAKE 1 TAKE 1 tablet ty TABLET BY TABLET BY TAKE 1 [facility] MOUTH AT MOUTH AT TABLET BY l BEDTIME AND BEDTIME AND MOUTH AT Clinics IN MORNING IN MORNING BEDTIME AND IN MORNING amlodipine amlodipine No amlodipine [facility] 5 mg tablet 5 mg tablet 5 mg [facility] TAKE 1 TAKE 1 tablet ty TABLET BY TABLET BY TAKE 1 [facility] MOUTH EVERY MOUTH EVERY TABLET BY l DAY DAY MOUTH Clinics EVERY DAY atorvastati atorvastati No atorvastat [facility] n 20 mg n 20 mg in 20 mg Commu ni tablet TAKE tablet TAKE tablet ty 1 TABLET BY 1 TABLET BY TAKE 1 Hospita MOUTH EVERY MOUTH EVERY TABLET BY l DAY FOR 90 DAY FOR 90 MOUTH Cl inics DAYS DAYS EVERY DAY FOR 90 DAYS BD Kalee 2nd BD Kalee 2nd No BD Kalee [facility] Gen Pen Gen Pen 2nd Gen Commun i Needle 32 Needle 32 Pen Needle ty gauge x gauge x 32 gauge x [facility] 32" 1 32" 1 32" 1 l TIME A DAY TIME A DAY TIME A DAY Clinics ceftriaxone ceftriaxone No 500mg ceftriaxon [facility] 500 mg 500 mg e 500 mg Communi solution solution solution ty for for for Hospita injection injection injection l Take 500 mg Take 500 mg Take 500 Clinics by by mg by injection injection injection route. pt route. pt route. pt tolerated tolerated tolerated well well well cholecalcif cholecalcif No cholecalci [facility] ghada ghada ferol Communi (vitamin (vitamin (vitamin ty D3) 1,250 D3) 1,250 D3) 1,250 Hospita mcg (50,000 mcg (50,000 mcg l unit) unit) (50,000 Clinics capsule capsule unit) TAKE 1 TAKE 1 capsule CAPSULE CAPSULE TAKE 1 EVERY 15 EVERY 15 CAPSULE DAYS DAYS EVERY 15 DAYS clonazepam clonazepam No clonazepam [facility] 0.5 mg 0.5 mg 0.5 mg Communi tablet TAKE tablet TAKE tablet ty 1 TABLET BY 1 TABLET BY TAKE 1 Hospita MOUTH EVERY MOUTH EVERY TABLET BY l DAY DAY MOUTH Clinics NEEDED NEEDED EVERY DAY NEEDED cyclobenzap cyclobenzap No cyclobenza [facility] rine 10 mg rine 10 mg rita 10 Communi tablet tablet mg tablet ty Hospita l Clinics diclofenac diclofenac No diclofenac [facility] sodium 75 sodium 75 sodium 75 Communi mg mg mg ty tablet,indira tablet,indira tablet,del Hospita yed release yed release ayed l release Clinics docusate docusate No docusate [facility] sodium 100 sodium 100 sodium 100 Communi mg capsule mg capsule mg capsule ty TAKE 1 TAKE 1 TAKE 1 Hospita CAPSULE BY CAPSULE BY CAPSULE BY l MOUTH EVERY MOUTH EVERY MOUTH Clinics DAY DAY EVERY DAY famotidine famotidine No famotidine [facility] 20 mg 20 mg 20 mg Communi tablet Take tablet Take tablet ty 1 tablet 1 tablet Take 1 Hospi ta daily by daily by tablet l mouth mouth daily by Clinics mouth ferrous ferrous No ferrous [facility] sulfate 220 sulfate 220 sulfate Communi mg (44 mg mg (44 mg 220 mg (44 ty iron)/5 mL iron)/5 mL mg iron)/5 Hospita oral elixir oral elixir mL oral l Take 5 ML Take 5 ML elixir Cli nics BID by BID by Take 5 ML mouth mouth BID by mouth glipizide glipizide No glipizide [facility] ER 2.5 mg ER 2.5 mg ER 2.5 mg Communi tablet, tablet, tablet, ty extended extended extended [facility] release 24 release 24 release 24 l hr hr hr Clinics Humatrope 6 Humatrope 6 No Humatrope [facility] mg (18 mg (18 6 mg (18 Communi unit) unit) unit) ty injection injection injection [facility] cartridge cartridge cartridge l INJECT INJECT INJECT Clinics 0.3MG 0.3MG 0.3MG SUBCUTANEOU SUBCUTANEOU SUBCUTANEO SLY EVERY SLY EVERY USLY EVERY DAY DAY DAY hydrocortis hydrocortis No hydrocorti [facility] one 20 mg one 20 mg sone 20 mg Communi tablet TAKE tablet TAKE tablet ty 2 TABLETS 2 TABLETS TAKE 2 [facility] BY MOUTH BY MOUTH TABLETS BY l EVERY DAY EVERY DAY MOUTH Clin ics IN THE IN THE EVERY DAY MORNING MORNING IN THE MORNING isosorbide isosorbide No isosorbide [facility] mononitrate mononitrate mononitrat Communi ER 30 mg ER 30 mg e ER 30 mg t y tablet,exte tablet,exte tablet,ext Hospita nded nded ended l release 24 release 24 release 24 Clinics hr TAKE 1 hr TAKE 1 hr TAKE 1 TABLET BY TABLET BY TABLET BY MOUTH EVERY MOUTH EVERY MOUTH DAY DAY EVERY DAY Klor-Con 10 Klor-Con 10 No Klor-Con [facility] mEq mEq 10 mEq Communi tablet,exte tablet,exte tablet,ext ty nded nded ended Hospita release release release l TAKE 1 TAKE 1 TAKE 1 Clinics TABLET BY TABLET BY TABLET BY MOUTH EVERY MOUTH EVERY MOUTH DAY WITH DAY WITH EVERY DAY FOOD FOOD WITH FOOD levothyroxi levothyroxi No levothyrox [facility] ne 112 mcg ne 112 mcg ine 112 Communi tablet 1 tablet 1 mcg tablet t y TAB DAILY TAB DAILY 1 TAB [facility] 1/2 HR. 1/2 HR. DAILY 1/2 l BEFORE BEFORE HR. BEFORE Clini cs BREAKFAST BREAKFAST BREAKFAST WITH WATER WITH WATER WITH WATER lidocaine lidocaine No 2.1mL lidocaine [facility] (PF) 10 (PF) 10 (PF) 10 Commun i mg/mL (1 %) mg/mL (1 %) mg/mL (1 ty injection injection %) Hospi ta solution solution injection l Take 2.1 mL Take 2.1 mL solution Clinics by by Take 2.1 injection injection mL by route. route. injection route. lidocaine lidocaine No 2.1mL Q1D lidocaine [facility] (PF) 50 (PF) 50 (PF) 50 Commun i mg/5 mL (1 mg/5 mL (1 mg/5 mL (1 ty %) %) %) Hospita injection injection injection l syringe syringe syringe Clinic s Take 2.1 mL Take 2.1 mL Take 2.1 every day every day mL every by by day by injection injection injection route for 4 route for 4 route for days. pt days. pt 4 days. pt tolerated tolerated tolerated well, well, well, wasted 2.9 wasted 2.9 wasted 2.9 mL mL mL lidocaine 5 lidocaine 5 No lidocaine [facility] % topical % topical 5 % Commu ni patch patch topical ty patch [facility] liothyronin liothyronin No liothyroni [facility] e 5 mcg e 5 mcg ne 5 mcg Commu ni tablet tablet tablet ty [facility] mirtazapine mirtazapine No mirtazapin [facility] 15 mg 15 mg e 15 mg Communi tablet TAKE tablet TAKE tablet ty 1 TABLET BY 1 TABLET BY TAKE 1 Hospita MOUTH MOUTH TABLET BY l EVERYDAY AT EVERYDAY AT MOUTH Clinics BEDTIME BEDTIME EVERYDAY AT BEDTIME nitroglycer nitroglycer No 1 nitroglyce [facility] in 0.4 mg in 0.4 mg rin 0.4 mg Communi sublingual sublingual sublingual ty tablet tablet tablet [facility] [address] 1 l tablet as tablet as tablet as Clinics needed by needed by needed by sublingual sublingual sublingual route. route. route. omeprazole omeprazole No omeprazole [facility] 20 mg 20 mg 20 mg Communi capsule,del capsule,del capsule,de ty ayed ayed layed Hospita release release release l TAKE 1 TAKE 1 TAKE 1 Clinics CAPSULE BY CAPSULE BY CAPSULE BY MOUTH EVERY MOUTH EVERY MOUTH MORNING MORNING EVERY MORNING OneTouch OneTouch No OneTouch [facility] Lancets 30 Lancets 30 Lancets 30 ty gauge TEST gauge TEST gauge TEST [facility] TWICE A DAY TWICE A DAY TWICE A l DAY Clinics OneTouch OneTouch No OneTouch Swe madeleine Verio Flex Verio Flex Verio Flex Communi Meter FOR Meter FOR Meter FOR ty TESTING.1 TESTING.1 TESTING.1 [facility] BOX ICD 10 BOX ICD 10 BOX ICD 10 l E11.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.65 Clinics OneTouch OneTouch No OneTouch Swe madeleine Verio test Verio test Verio test Communi strips TEST strips TEST strips ty TWICE A DAY TWICE A DAY TEST TWICE Hospita A DAY Clinics pantoprazol pantoprazol No pantoprazo [facility] e 40 mg e 40 mg le 40 mg Commu ni tablet,indira tablet,indira tablet,del ty yed release yed release ayed H ospita Take 1 Take 1 release l tablet BID tablet BID Take 1 C linics by mouth by mouth tablet BID by mouth phenazopyri phenazopyri No phenazopyr [facility] dine 200 mg dine 200 mg idine 200 Communi tablet TAKE tablet TAKE mg tablet ty 1 TABLET BY 1 TABLET BY TAKE 1 Hospita MOUTH THREE MOUTH THREE TABLET BY l TIMES A DAY TIMES A DAY MOUTH Clinics FOR 3 DAYS FOR 3 DAYS THREE TIMES A DAY FOR 3 DAYS potassium potassium No potassium [facility] chloride ER chloride ER chloride Communi 20 mEq 20 mEq ER 20 mEq ty tablet,exte tablet,exte tablet,ext Hospita nded nded ended l release(par release(par release(pa Clinics t/cryst) t/cryst) rt/cryst) TAKE 1 TAKE 1 TAKE 1 TABLET BY TABLET BY TABLET BY MOUTH EVERY MOUTH EVERY MOUTH DAY DAY EVERY DAY Santyl 250 Santyl 250 No Santyl 250 [facility] unit/gram unit/gram unit/gram Communi topical topical topical ty ointment ointment ointment [facility] APPLY A APPLY A APPLY A l DIONY [facility] THICK THICK THICK AMOUNT TO AMOUNT TO AMOUNT TO WOUND 3 WOUND 3 WOUND 3 TIMES A TIMES A TIMES A WEEK WEEK WEEK sotalol 160 sotalol 160 No sotalol [facility] mg tablet mg tablet 160 mg Com raz TAKE 1 TAKE 1 tablet ty TABLET BY TABLET BY TAKE 1 [facility] MOUTH EVERY MOUTH EVERY TABLET BY l DAY DAY MOUTH Clinics EVERY DAY sulfamethox sulfamethox No sulfametho [facility] azole 800 azole 800 xazole 800 Communi mg-trimetho mg-trimetho mg-trimeth ty prim 160 mg prim 160 mg oprim 160 Hospita tablet TAKE tablet TAKE mg tablet l 1 TABLET BY 1 TABLET BY TAKE 1 Clinics MOUTH EVERY MOUTH EVERY TABLET BY 12 HOURS 12 HOURS MOUTH FOR 7 DAYS FOR 7 DAYS EVERY 12 HOURS FOR 7 DAYS Suprax 200 Suprax 200 No 5mL BID Suprax 200 [facility] mg/5 mL mg/5 mL mg/5 mL Commun i oral oral oral ty [facility] Take 5 mL Take 5 mL l twice a day twice a day twice a Clinics by oral by oral day by route for 7 route for 7 oral route days. days. for 7 days. tramadol 50 tramadol 50 No tramadol [facility] mg tablet mg tablet 50 mg Comm uni TAKE 1 TAKE 1 tablet ty TABLET BY TABLET BY TAKE 1 [facility] MOUTH AT MOUTH AT TABLET BY l BEDTIME AND BEDTIME AND MOUTH AT Clinics IN MORNING IN MORNING BEDTIME AND IN MORNING amlodipine amlodipine No amlodipine [facility] 5 mg tablet 5 mg tablet 5 mg C [facility] TAKE 1 TAKE 1 tablet ty TABLET BY TABLET BY TAKE 1 [facility] MOUTH EVERY MOUTH EVERY TABLET BY l DAY DAY MOUTH Clinics EVERY DAY atorvastati atorvastati No atorvastat [facility] n 20 mg n 20 mg in 20 mg Commu ni tablet TAKE tablet TAKE tablet ty 1 TABLET BY 1 TABLET BY TAKE 1 Hospita MOUTH EVERY MOUTH EVERY TABLET BY l DAY FOR 90 DAY FOR 90 MOUTH Cl inics DAYS DAYS EVERY DAY FOR 90 DAYS BD Kalee 2nd BD Kalee 2nd No BD Kalee [facility] Gen Pen Gen Pen 2nd Gen Commun i Needle 32 Needle 32 Pen Needle ty gauge x gauge x 32 gauge x [facility] " 1 " 1 " 1 l TIME A DAY TIME A DAY TIME A DAY Clinics ceftriaxone ceftriaxone No 500mg ceftriaxon [facility] 500 mg 500 mg e 500 mg Communi solution solution solution ty for for for Hospita injection injection injection l Take 500 mg Take 500 mg Take 500 Clinics by by mg by injection injection injection route. pt route. pt route. pt tolerated tolerated tolerated well well well cholecalcif cholecalcif No cholecalci [facility] ghada ghada ferol Communi (vitamin (vitamin (vitamin ty D3) 1,250 D3) 1,250 D3) 1,250 Hospita mcg (50,000 mcg (50,000 mcg l unit) unit) (50,000 Clinics capsule capsule unit) TAKE 1 TAKE 1 capsule CAPSULE CAPSULE TAKE 1 EVERY 15 EVERY 15 CAPSULE DAYS DAYS EVERY 15 DAYS clonazepam clonazepam No clonazepam [facility] 0.5 mg 0.5 mg 0.5 mg Communi tablet TAKE tablet TAKE tablet ty 1 TABLET BY 1 TABLET BY TAKE 1 Hospita MOUTH EVERY MOUTH EVERY TABLET BY l DAY DAY MOUTH Clinics NEEDED NEEDED EVERY DAY NEEDED cyclobenzap cyclobenzap No cyclobenza [facility] rine 10 mg rine 10 mg rita 10 Communi tablet tablet mg tablet ty Hospita l Clinics diclofenac diclofenac No diclofenac [facility] sodium 75 sodium 75 sodium 75 Communi mg mg mg ty tablet,indira tablet,indira tablet,del Hospita yed release yed release ayed l release Clinics docusate docusate No docusate Swe [facility] sodium 100 sodium 100 sodium 100 Communi mg capsule mg capsule mg capsule ty TAKE 1 TAKE 1 TAKE 1 Hospita CAPSULE BY CAPSULE BY CAPSULE BY l MOUTH EVERY MOUTH EVERY MOUTH Clinics DAY DAY EVERY DAY famotidine famotidine No famotidine [facility] 20 mg 20 mg 20 mg Communi tablet Take tablet Take tablet ty 1 tablet 1 tablet Take 1 Hospi ta daily by daily by tablet l mouth mouth daily by Clinics mouth ferrous ferrous No ferrous [facility] sulfate 220 sulfate 220 sulfate Communi mg (44 mg mg (44 mg 220 mg (44 ty iron)/5 mL iron)/5 mL mg iron)/5 Hospita oral elixir oral elixir mL oral l Take 5 ML Take 5 ML elixir Cli nics BID by BID by Take 5 ML mouth mouth BID by mouth glipizide glipizide No glipizide [facility] ER 2.5 mg ER 2.5 mg ER 2.5 mg Communi tablet, tablet, tablet, ty extended extended extended [facility] release 24 release 24 release 24 l hr hr hr Clinics Humatrope 6 Humatrope 6 No Humatrope [facility] mg (18 mg (18 6 mg (18 Communi unit) unit) unit) ty injection injection injection [facility] cartridge cartridge cartridge l INJECT INJECT INJECT Clinics 0.3MG 0.3MG 0.3MG SUBCUTANEOU SUBCUTANEOU SUBCUTANEO SLY EVERY SLY EVERY USLY EVERY DAY DAY DAY hydrocortis hydrocortis No hydrocorti [facility] one 20 mg one 20 mg sone 20 mg Communi tablet TAKE tablet TAKE tablet ty 2 TABLETS 2 TABLETS TAKE 2 [facility] BY MOUTH BY MOUTH TABLETS BY l EVERY DAY EVERY DAY MOUTH Clin ics IN THE IN THE EVERY DAY MORNING MORNING IN THE MORNING isosorbide isosorbide No isosorbide [facility] mononitrate mononitrate mononitrat Communi ER 30 mg ER 30 mg e ER 30 mg t y tablet,exte tablet,exte tablet,ext Hospita nded nded ended l release 24 release 24 release 24 Clinics hr TAKE 1 hr TAKE 1 hr TAKE 1 TABLET BY TABLET BY TABLET BY MOUTH EVERY MOUTH EVERY MOUTH DAY DAY EVERY DAY Klor-Con 10 Klor-Con 10 No Klor-Con [facility] mEq mEq 10 mEq Communi tablet,exte tablet,exte tablet,ext ty nded nded ended Hospita release release release l TAKE 1 TAKE 1 TAKE 1 Clinics TABLET BY TABLET BY TABLET BY MOUTH EVERY MOUTH EVERY MOUTH DAY WITH DAY WITH EVERY DAY FOOD FOOD WITH FOOD levothyroxi levothyroxi No levothyrox [facility] ne 112 mcg ne 112 mcg ine 112 Communi tablet 1 tablet 1 mcg tablet t y TAB DAILY TAB DAILY 1 TAB Hosp meryl 1/2 HR. 1/2 HR. DAILY 1/2 l BEFORE BEFORE HR. BEFORE Clini cs BREAKFAST BREAKFAST BREAKFAST WITH WATER WITH WATER WITH WATER lidocaine lidocaine No 2.1mL lidocaine [facility] (PF) 10 (PF) 10 (PF) 10 Commun i mg/mL (1 %) mg/mL (1 %) mg/mL (1 ty injection injection %) [facility] ta solution solution injection l Take 2.1 mL Take 2.1 mL solution Clinics by by Take 2.1 injection injection mL by route. route. injection route. lidocaine lidocaine No 2.1mL Q1D lidocaine [facility] (PF) 50 (PF) 50 (PF) 50 Commun i mg/5 mL (1 mg/5 mL (1 mg/5 mL (1 ty %) %) %) [facility] injection injection injection l syringe syringe syringe Clinic s Take 2.1 mL Take 2.1 mL Take 2.1 every day every day mL every by by day by injection injection injection route. pt route. pt route. pt tolerated tolerated tolerated well, well, well, wasted 2.9 wasted 2.9 wasted 2.9 mL mL mL lidocaine 5 lidocaine 5 No lidocaine [facility] % topical % topical 5 % Commu ni patch patch topical ty patch [facility] liothyronin liothyronin No liothyroni [facility] e 5 mcg e 5 mcg ne 5 mcg Commu ni tablet tablet tablet ty [facility] Clinics mirtazapine mirtazapine No mirtazapin [facility] 15 mg 15 mg e 15 mg Communi tablet TAKE tablet TAKE tablet ty 1 TABLET BY 1 TABLET BY TAKE 1 [facility] MOUTH MOUTH TABLET BY l EVERYDAY AT EVERYDAY AT MOUTH Clinics BEDTIME BEDTIME EVERYDAY AT BEDTIME nitroglycer nitroglycer No 1 nitroglyce [facility] in 0.4 mg in 0.4 mg rin 0.4 mg Communi sublingual sublingual sublingual ty tablet tablet tablet [facility] Place [address] 1 l tablet as tablet as tablet as Clinics needed by needed by needed by sublingual sublingual sublingual route. route. route. omeprazole omeprazole No omeprazole [facility] 20 mg 20 mg 20 mg Communi capsule,del capsule,del capsule,de ty ayed ayed layed Hospita release release release l TAKE 1 TAKE 1 TAKE 1 Clinics CAPSULE BY CAPSULE BY CAPSULE BY MOUTH EVERY MOUTH EVERY MOUTH MORNING MORNING EVERY MORNING OneTouch OneTouch No OneTouch [facility] Lancets 30 Lancets 30 Lancets 30 ty gauge TEST gauge TEST gauge TEST Hospita TWICE A DAY TWICE A DAY TWICE A l DAY Clinics OneTouch OneTouch No OneTouch Swe madeleine Verio Flex Verio Flex Verio Flex Communi Meter FOR Meter FOR Meter FOR ty TESTING.1 TESTING.1 TESTING.1 Hospita BOX ICD 10 BOX ICD 10 BOX ICD 10 l E11.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.65 Clinics OneTouch OneTouch No OneTouch Swe madeleine Verio test Verio test Verio test Communi strips TEST strips TEST strips ty TWICE A DAY TWICE A DAY TEST TWICE Hospita A DAY l Clinics pantoprazol pantoprazol No pantoprazo [facility] e 40 mg e 40 mg le 40 mg Commu ni tablet,indira tablet,indira tablet,del ty yed release yed release ayed H ospita Take 1 Take 1 release l tablet BID tablet BID Take 1 C linics by mouth by mouth tablet BID by mouth phenazopyri phenazopyri No phenazopyr [facility] dine 200 mg dine 200 mg idine 200 Communi tablet TAKE tablet TAKE mg tablet ty 1 TABLET BY 1 TABLET BY TAKE 1 Hospita MOUTH THREE MOUTH THREE TABLET BY l TIMES A DAY TIMES A DAY MOUTH Clinics FOR 3 DAYS FOR 3 DAYS THREE TIMES A DAY FOR 3 DAYS potassium potassium No potassium [facility] chloride ER chloride ER chloride Communi 20 mEq 20 mEq ER 20 mEq ty tablet,exte tablet,exte tablet,ext Hospita nded nded ended l release(par release(par release(pa Clinics t/cryst) t/cryst) rt/cryst) TAKE 1 TAKE 1 TAKE 1 TABLET BY TABLET BY TABLET BY MOUTH EVERY MOUTH EVERY MOUTH DAY DAY EVERY DAY Santyl 250 Santyl 250 No Santyl 250 [facility] unit/gram unit/gram unit/gram Communi topical topical topical ty ointment ointment ointment [facility] APPLY A APPLY A APPLY A l DIONY DIONY [facility] THICK THICK THICK AMOUNT TO AMOUNT TO AMOUNT TO WOUND 3 WOUND 3 WOUND 3 TIMES A TIMES A TIMES A WEEK WEEK WEEK sotalol 160 sotalol 160 No sotalol [facility] mg tablet mg tablet 160 mg Com raz TAKE 1 TAKE 1 tablet ty TABLET BY TABLET BY TAKE 1 [facility] MOUTH EVERY MOUTH EVERY TABLET BY l DAY DAY MOUTH Clinics EVERY DAY sulfamethox sulfamethox No sulfametho [facility] azole 800 azole 800 xazole 800 Communi mg-trimetho mg-trimetho mg-trimeth ty prim 160 mg prim 160 mg oprim 160 Hospita tablet TAKE tablet TAKE mg tablet l 1 TABLET BY 1 TABLET BY TAKE 1 Clinics MOUTH EVERY MOUTH EVERY TABLET BY 12 HOURS 12 HOURS MOUTH FOR 7 DAYS FOR 7 DAYS EVERY 12 HOURS FOR 7 DAYS Suprax 200 Suprax 200 No 5mL BID Suprax 200 [facility] mg/5 mL mg/5 mL mg/5 mL Commun i oral oral oral ty suspension suspension suspension Hospita Take 5 mL Take 5 mL Take 5 mL l twice a day twice a day twice a Clinics by oral by oral day by route for 7 route for 7 oral route days. days. for 7 days. tramadol 50 tramadol 50 No tramadol [facility] mg tablet mg tablet 50 mg Comm uni TAKE 1 TAKE 1 tablet ty TABLET BY TABLET BY TAKE 1 [facility] MOUTH AT MOUTH AT TABLET BY l BEDTIME AND BEDTIME AND MOUTH AT Clinics IN MORNING IN MORNING BEDTIME AND IN MORNING amlodipine amlodipine No amlodipine [facility] 5 mg tablet 5 mg tablet 5 mg C [facility] TAKE 1 TAKE 1 tablet ty TABLET BY TABLET BY TAKE 1 [facility] MOUTH EVERY MOUTH EVERY TABLET BY l DAY DAY MOUTH Clinics EVERY DAY atorvastati atorvastati No atorvastat [facility] n 20 mg n 20 mg in 20 mg Commu ni tablet TAKE tablet TAKE tablet ty 1 TABLET BY 1 TABLET BY TAKE 1 Hospita MOUTH EVERY MOUTH EVERY TABLET BY l DAY FOR 90 DAY FOR 90 MOUTH Cl inics DAYS DAYS EVERY DAY FOR 90 DAYS BD Kalee 2nd BD Kalee 2nd No BD Kalee [facility] Gen Pen Gen Pen 2nd Gen Commun i Needle 32 Needle 32 Pen Needle ty gauge x gauge x 32 gauge x [facility] " 1 " 1 " 1 l TIME A DAY TIME A DAY TIME A DAY Clinics ceftriaxone ceftriaxone No 500mg ceftriaxon [facility] 500 mg 500 mg e 500 mg Communi solution solution solution ty for for for Hospita injection injection injection l Take 500 mg Take 500 mg Take 500 Clinics by by mg by injection injection injection route. pt route. pt route. pt tolerated tolerated tolerated well well well cholecalcif cholecalcif No cholecalci [facility] ghada ghada ferol Communi (vitamin (vitamin (vitamin ty D3) 1,250 D3) 1,250 D3) 1,250 Hospita mcg (50,000 mcg (50,000 mcg l unit) unit) (50,000 Clinics capsule capsule unit) TAKE 1 TAKE 1 capsule CAPSULE CAPSULE TAKE 1 EVERY 15 EVERY 15 CAPSULE DAYS DAYS EVERY 15 DAYS clonazepam clonazepam No clonazepam [facility] 0.5 mg 0.5 mg 0.5 mg Communi tablet TAKE tablet TAKE tablet ty 1 TABLET BY 1 TABLET BY TAKE 1 Hospita MOUTH EVERY MOUTH EVERY TABLET BY l DAY DAY MOUTH Clinics NEEDED NEEDED EVERY DAY NEEDED cyclobenzap cyclobenzap No cyclobenza [facility] rine 10 mg rine 10 mg rita 10 Communi tablet tablet mg tablet ty Hospita l Clinics diclofenac diclofenac No diclofenac [facility] sodium 75 sodium 75 sodium 75 Communi mg mg mg ty tablet,indira tablet,indira tablet,del Hospita yed release yed release ayed l release Clinics docusate docusate No docusate [facility] sodium 100 sodium 100 sodium 100 Communi mg capsule mg capsule mg capsule ty TAKE 1 TAKE 1 TAKE 1 Hospita CAPSULE BY CAPSULE BY CAPSULE BY l MOUTH EVERY MOUTH EVERY MOUTH Clinics DAY DAY EVERY DAY famotidine famotidine No famotidine [facility] 20 mg 20 mg 20 mg Communi tablet Take tablet Take tablet ty 1 tablet 1 tablet Take 1 Hospi ta daily by daily by tablet l mouth mouth daily by Clinics mouth ferrous ferrous No ferrous [facility] sulfate 220 sulfate 220 sulfate Communi mg (44 mg mg (44 mg 220 mg (44 ty iron)/5 mL iron)/5 mL mg iron)/5 Hospita oral elixir oral elixir mL oral l Take 5 ML Take 5 ML elixir Cli nics BID by BID by Take 5 ML mouth mouth BID by mouth glipizide glipizide No glipizide [facility] ER 2.5 mg ER 2.5 mg ER 2.5 mg Communi tablet, tablet, tablet, ty extended extended extended [facility] release 24 release 24 release 24 l hr hr hr Clinics Humatrope 6 Humatrope 6 No Humatrope [facility] mg (18 mg (18 6 mg (18 Communi unit) unit) unit) ty injection injection injection Hospita cartridge cartridge cartridge l INJECT INJECT INJECT Clinics 0.3MG 0.3MG 0.3MG SUBCUTANEOU SUBCUTANEOU SUBCUTANEO SLY EVERY SLY EVERY USLY EVERY DAY DAY DAY hydrocortis hydrocortis No hydrocorti [facility] one 20 mg one 20 mg sone 20 mg Communi tablet TAKE tablet TAKE tablet ty 2 TABLETS 2 TABLETS TAKE 2 [facility] BY MOUTH BY MOUTH TABLETS BY l EVERY DAY EVERY DAY MOUTH Clin ics IN THE IN THE EVERY DAY MORNING MORNING IN THE MORNING isosorbide isosorbide No isosorbide [facility] mononitrate mononitrate mononitrat Communi ER 30 mg ER 30 mg e ER 30 mg t y tablet,exte tablet,exte tablet,ext Hospita nded nded ended l release 24 release 24 release 24 Clinics hr TAKE 1 hr TAKE 1 hr TAKE 1 TABLET BY TABLET BY TABLET BY MOUTH EVERY MOUTH EVERY MOUTH DAY DAY EVERY DAY Klor-Con 10 Klor-Con 10 No Klor-Con [facility] mEq mEq 10 mEq Communi tablet,exte tablet,exte tablet,ext ty nded nded ended Hospita release release release l TAKE 1 TAKE 1 TAKE 1 Clinics TABLET BY TABLET BY TABLET BY MOUTH EVERY MOUTH EVERY MOUTH DAY WITH DAY WITH EVERY DAY FOOD FOOD WITH FOOD levothyroxi levothyroxi No levothyrox [facility] ne 112 mcg ne 112 mcg ine 112 Communi tablet 1 tablet 1 mcg tablet t y TAB DAILY TAB DAILY 1 TAB Hosp [facility] 1/2 HR. 1/2 HR. DAILY 1/2 l BEFORE BEFORE HR. BEFORE Clini cs BREAKFAST BREAKFAST BREAKFAST WITH WATER WITH WATER WITH WATER lidocaine lidocaine No 2.1mL lidocaine [facility] (PF) 10 (PF) 10 (PF) 10 Commun i mg/mL (1 %) mg/mL (1 %) mg/mL (1 ty injection injection %) Hospi ta solution solution injection l Take 2.1 mL Take 2.1 mL solution Clinics by by Take 2.1 injection injection mL by route. route. injection route. lidocaine lidocaine No 2.1mL Q1D lidocaine [facility] (PF) 50 (PF) 50 (PF) 50 Commun i mg/5 mL (1 mg/5 mL (1 mg/5 mL (1 ty %) %) %) [facility] injection injection injection l syringe syringe syringe Clinic s Take 2.1 mL Take 2.1 mL Take 2.1 every day every day mL every by by day by injection injection injection route. pt route. pt route. pt tolerated tolerated tolerated well, well, well, wasted 2.9 wasted 2.9 wasted 2.9 mL mL mL lidocaine 5 lidocaine 5 No lidocaine [facility] % topical % topical 5 % Commu ni patch patch topical ty patch [facility] liothyronin liothyronin No liothyroni [facility] e 5 mcg e 5 mcg ne 5 mcg Commu ni tablet tablet tablet ty [facility] Clinics mirtazapine mirtazapine No mirtazapin [facility] 15 mg 15 mg e 15 mg Communi tablet TAKE tablet TAKE tablet ty 1 TABLET BY 1 TABLET BY TAKE 1 Hospita MOUTH MOUTH TABLET BY l EVERYDAY AT EVERYDAY AT MOUTH Clinics BEDTIME BEDTIME EVERYDAY AT BEDTIME nitroglycer nitroglycer No 1 nitroglyce [facility] in 0.4 mg in 0.4 mg rin 0.4 mg Communi sublingual sublingual sublingual ty tablet tablet tablet Hospita Place [address] 1 l tablet as tablet as tablet as Clinics needed by needed by needed by sublingual sublingual sublingual route. route. route. omeprazole omeprazole No omeprazole [facility] 20 mg 20 mg 20 mg Communi capsule,del capsule,del capsule,de ty ayed ayed layed Hospita release release release l TAKE 1 TAKE 1 TAKE 1 Clinics CAPSULE BY CAPSULE BY CAPSULE BY MOUTH EVERY MOUTH EVERY MOUTH MORNING MORNING EVERY MORNING OneTouch OneTouch No OneTouch Swe [facility] Lancets 30 Lancets 30 Lancets 30 ty gauge TEST gauge TEST gauge TEST [facility] TWICE A DAY TWICE A DAY TWICE A l DAY Clinics OneTouch OneTouch No OneTouch Swe madeleine Verio Flex Verio Flex Verio Flex Communi Meter FOR Meter FOR Meter FOR ty TESTING.1 TESTING.1 TESTING.1 Hospita BOX ICD 10 BOX ICD 10 BOX ICD 10 l E11.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.65 Clinics OneTouch OneTouch No OneTouch Swe madeleine Verio test Verio test Verio test Communi strips TEST strips TEST strips ty TWICE A DAY TWICE A DAY TEST TWICE Hospita A DAY l Clinics pantoprazol pantoprazol No pantoprazo [facility] e 40 mg e 40 mg le 40 mg Commu ni tablet,indira tablet,indira tablet,del ty yed release yed release ayed H ospita Take 1 Take 1 release l tablet BID tablet BID Take 1 C linics by mouth by mouth tablet BID by mouth phenazopyri phenazopyri No phenazopyr [facility] dine 200 mg dine 200 mg idine 200 Communi tablet TAKE tablet TAKE mg tablet ty 1 TABLET BY 1 TABLET BY TAKE 1 Hospita MOUTH THREE MOUTH THREE TABLET BY l TIMES A DAY TIMES A DAY MOUTH Clinics FOR 3 DAYS FOR 3 DAYS THREE TIMES A DAY FOR 3 DAYS potassium potassium No potassium [facility] chloride ER chloride ER chloride Communi 20 mEq 20 mEq ER 20 mEq ty tablet,exte tablet,exte tablet,ext Hospita nded nded ended l release(par release(par release(pa Clinics t/cryst) t/cryst) rt/cryst) TAKE 1 TAKE 1 TAKE 1 TABLET BY TABLET BY TABLET BY MOUTH EVERY MOUTH EVERY MOUTH DAY DAY EVERY DAY Santyl 250 Santyl 250 No Santyl 250 [facility] unit/gram unit/gram unit/gram Communi topical topical topical ty ointment ointment ointment [facility] APPLY A APPLY A APPLY A l [facility] THICK THICK THICK AMOUNT TO AMOUNT TO AMOUNT TO WOUND 3 WOUND 3 WOUND 3 TIMES A TIMES A TIMES A WEEK WEEK WEEK sotalol 160 sotalol 160 No sotalol [facility] mg tablet mg tablet 160 mg Com raz TAKE 1 TAKE 1 tablet ty TABLET BY TABLET BY TAKE 1 [facility] MOUTH TWICE MOUTH TWICE TABLET BY l A DAY A DAY MOUTH Clinics TWICE A DAY sulfamethox sulfamethox No sulfametho [facility] azole 800 azole 800 xazole 800 Communi mg-trimetho mg-trimetho mg-trimeth ty prim 160 mg prim 160 mg oprim 160 Hospita tablet TAKE tablet TAKE mg tablet l 1 TABLET BY 1 TABLET BY TAKE 1 Clinics MOUTH EVERY MOUTH EVERY TABLET BY 12 HOURS 12 HOURS MOUTH FOR 7 DAYS FOR 7 DAYS EVERY 12 HOURS FOR 7 DAYS Suprax 200 Suprax 200 No 5mL BID Suprax 200 [facility] mg/5 mL mg/5 mL mg/5 mL Commun i oral oral oral ty suspension suspension suspension Hospita Take 5 mL Take 5 mL Take 5 mL l twice a day twice a day twice a Clinics by oral by oral day by route for 7 route for 7 oral route days. days. for 7 days. tramadol 50 tramadol 50 No tramadol [facility] mg tablet mg tablet 50 mg Comm uni TAKE 1 TAKE 1 tablet ty TABLET BY TABLET BY TAKE 1 [facility] MOUTH AT MOUTH AT TABLET BY l BEDTIME AND BEDTIME AND MOUTH AT Clinics IN MORNING IN MORNING BEDTIME AND IN MORNING amlodipine amlodipine No amlodipine [facility] 5 mg tablet 5 mg tablet 5 mg C [facility] TAKE 1 TAKE 1 tablet ty TABLET BY TABLET BY TAKE 1 [facility] MOUTH EVERY MOUTH EVERY TABLET BY l DAY DAY MOUTH Clinics EVERY DAY atorvastati atorvastati No atorvastat [facility] n 20 mg n 20 mg in 20 mg Commu ni tablet TAKE tablet TAKE tablet ty 1 TABLET BY 1 TABLET BY TAKE 1 Hospita MOUTH EVERY MOUTH EVERY TABLET BY l DAY FOR 90 DAY FOR 90 MOUTH Cl inics DAYS DAYS EVERY DAY FOR 90 DAYS BD Kalee 2nd BD Kalee 2nd No BD Kalee [facility] Gen Pen Gen Pen 2nd Gen Commun i Needle 32 Needle 32 Pen Needle ty gauge x gauge x 32 gauge x [facility] " 1 " 1 " 1 l TIME A DAY TIME A DAY TIME A DAY Clinics cholecalcif cholecalcif No cholecalci [facility] ghada ghada ferol Communi (vitamin (vitamin (vitamin ty D3) 1,250 D3) 1,250 D3) 1,250 Hospita mcg (50,000 mcg (50,000 mcg l unit) unit) (50,000 Clinics capsule capsule unit) TAKE 1 TAKE 1 capsule CAPSULES BY CAPSULES BY TAKE 1 MOUTH ONCE MOUTH ONCE CAPSULES EVERY 15 EVERY 15 BY MOUTH DAYS DAYS ONCE EVERY 15 DAYS clonazepam clonazepam No clonazepam [facility] 0.5 mg 0.5 mg 0.5 mg Communi tablet TAKE tablet TAKE tablet ty 1 TABLET BY 1 TABLET BY TAKE 1 Hospita MOUTH EVERY MOUTH EVERY TABLET BY l DAY DAY MOUTH Clinics NEEDED NEEDED EVERY DAY NEEDED docusate docusate No docusate Swe madeleine sodium 100 sodium 100 sodium 100 Communi mg capsule mg capsule mg capsule ty TAKE 1 TAKE 1 TAKE 1 Hospita CAPSULE BY CAPSULE BY CAPSULE BY l MOUTH EVERY MOUTH EVERY MOUTH Clinics DAY DAY EVERY DAY famotidine famotidine No famotidine [facility] 20 mg 20 mg 20 mg Communi tablet TAKE tablet TAKE tablet ty 1 TABLET BY 1 TABLET BY TAKE 1 Hospita MOUTH AT MOUTH AT TABLET BY l BEDTIME BEDTIME MOUTH AT Clini cs BEDTIME glipizide glipizide No glipizide [facility] ER 2.5 mg ER 2.5 mg ER 2.5 mg Communi tablet, tablet, tablet, ty extended extended extended [facility] release 24 release 24 release 24 l hr TAKE 2 hr TAKE 2 hr TAKE 2 Clinics TABLETS (5 TABLETS (5 TABLETS (5 MG) BY MG) BY MG) BY MOUTH DAILY MOUTH DAILY MOUTH WITH WITH DAILY WITH BREAKFAST BREAKFAST BREAKFAST Humatrope 6 Humatrope 6 No Humatrope [facility] mg (18 mg (18 6 mg (18 Communi unit) unit) unit) ty injection injection injection [facility] cartridge cartridge cartridge l INJECT INJECT INJECT [facility] 0.3MG 0.3MG 0.3MG SUBCUTANEOU SUBCUTANEOU SUBCUTANEO SLY EVERY SLY EVERY USLY EVERY DAY DAY DAY hydrocortis hydrocortis No hydrocorti [facility] one 20 mg one 20 mg sone 20 mg Communi tablet TAKE tablet TAKE tablet ty 1 TABLET BY 1 TABLET BY TAKE 1 Hospita MOUTH WITH MOUTH WITH TABLET BY l BREAKFAST, BREAKFAST, MOUTH WITH Clinics THEN TAKE 2 THEN TAKE 2 BREAKFAST, TABLETS TABLETS THEN TAKE WITH WITH 2 TABLETS DINNER. DINNER. WITH DINNER. isosorbide isosorbide No isosorbide [facility] mononitrate mononitrate mononitrat Communi ER 30 mg ER 30 mg e ER 30 mg t y tablet,exte tablet,exte tablet,ext Hospita nded nded ended l release 24 release 24 release 24 Clinics hr TAKE 1 hr TAKE 1 hr TAKE 1 TABLET BY TABLET BY TABLET BY MOUTH EVERY MOUTH EVERY MOUTH DAY DAY EVERY DAY Klor-Con 10 Klor-Con 10 No Klor-Con [facility] mEq mEq 10 mEq Communi tablet,exte tablet,exte tablet,ext ty nded nded ended Hospita release release release l TAKE 1 TAKE 1 TAKE 1 Clinics TABLET BY TABLET BY TABLET BY MOUTH EVERY MOUTH EVERY MOUTH DAY WITH DAY WITH EVERY DAY FOOD FOOD WITH FOOD levothyroxi levothyroxi No levothyrox [facility] ne 112 mcg ne 112 mcg ine 112 Communi tablet TAKE tablet TAKE mcg tablet ty 1 TABLET BY 1 TABLET BY TAKE 1 Hospita MOUTH DAILY MOUTH DAILY TABLET BY l 1/2 HOUR 1/2 HOUR MOUTH Clinic s BEFORE BEFORE DAILY 1/2 BREAKFAST BREAKFAST HOUR WITH WATER WITH WATER BEFORE BREAKFAST WITH WATER lidocaine 5 lidocaine 5 No lidocaine [facility] % topical % topical 5 % Commu ni patch APPLY patch APPLY topical ty 1 PATCH BY 1 PATCH BY patch Ho spita TOPICAL TOPICAL APPLY 1 l ROUTE ONCE ROUTE ONCE PATCH BY Clinics DAILY (MAY DAILY (MAY TOPICAL WEAR UP TO WEAR UP TO ROUTE ONCE 12HOURS.) 12HOURS.) DAILY (MAY WEAR UP TO 12HOURS.) liothyronin liothyronin No liothyroni [facility] e 5 mcg e 5 mcg ne 5 mcg Commu ni tablet TAKE tablet TAKE tablet ty 2 TABS 2 TABS TAKE 2 Hospita TUES, TUES, TABS TUES, l THURS, SAT, THURS, SAT, THURS, Clinics SUN. TAKE 1 SUN. TAKE 1 SAT, SUN. TAB MON, TAB MON, TAKE 1 TAB WED, FRI WED, FRI MON, WED, HALF HOUR HALF HOUR FRI HALF BEFORE BEFORE HOUR BREAKFAST BREAKFAST BEFORE WITH WATER WITH WATER BREAKFAST WITH WATER mirtazapine mirtazapine No mirtazapin [facility] 15 mg 15 mg e 15 mg Communi tablet TAKE tablet TAKE tablet ty 1 TABLET BY 1 TABLET BY TAKE 1 Hospita MOUTH MOUTH TABLET BY l EVERYDAY AT EVERYDAY AT MOUTH Clinics BEDTIME BEDTIME EVERYDAY AT BEDTIME nitroglycer nitroglycer No 1 nitroglyce [facility] in 0.4 mg in 0.4 mg rin 0.4 mg Communi sublingual sublingual sublingual ty [facility] [address] [facility] [address] [facility] l tablet as tablet as tablet as Clinics needed by needed by needed by sublingual sublingual sublingual route. route. route. omeprazole omeprazole No omeprazole [facility] 40 mg 40 mg 40 mg Communi capsule,del capsule,del capsule,de ty ayed ayed layed Hospita release release release l TAKE 1 TAKE 1 TAKE 1 Clinics CAPSULE BY CAPSULE BY CAPSULE BY MOUTH EVERY MOUTH EVERY MOUTH MORNING MORNING EVERY MORNING OneTouch OneTouch No OneTouch Swe madeleine [facility] Lancets 30 Lancets 30 Lancets 30 ty gauge TEST gauge TEST gauge TEST [facility] TWICE A DAY TWICE A DAY TWICE A l DAY Clinics OneTouch OneTouch No OneTouch Swe madeleine Verio Flex Verio Flex Verio Flex Communi Meter FOR Meter FOR Meter FOR ty TESTING.1 TESTING.1 TESTING.1 Hospita BOX ICD 10 BOX ICD 10 BOX ICD 10 l E11.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.65 Clinics OneTouch OneTouch No OneTouch Swe madeleine Verio test Verio test Verio test Communi strips TEST strips TEST strips ty TWICE A DAY TWICE A DAY TEST TWICE Hospita A DAY l Clinics potassium potassium No potassium [facility] chloride ER chloride ER chloride Communi 20 mEq 20 mEq ER 20 mEq ty tablet,exte tablet,exte tablet,ext Hospita nded nded ended l release(par release(par release(in Clinics t/cryst) t/cryst) rt/cryst) TAKE 1 TAKE 1 TAKE 1 TABLET BY TABLET BY TABLET BY MOUTH EVERY MOUTH EVERY MOUTH DAY DAY EVERY DAY Santyl 250 Santyl 250 No Santyl 250 [facility] unit/gram unit/gram unit/gram Communi topical topical topical ty ointment ointment ointment [facility] APPLY A APPLY A APPLY A l [facility] THICK THICK THICK AMOUNT TO AMOUNT TO AMOUNT TO WOUND 3 WOUND 3 WOUND 3 TIMES A TIMES A TIMES A WEEK WEEK WEEK sotalol 160 sotalol 160 No sotalol [facility] mg tablet mg tablet 160 mg Com raz TAKE 1 TAKE 1 tablet ty TABLET BY TABLET BY TAKE 1 [facility] MOUTH TWICE MOUTH TWICE TABLET BY l A DAY A DAY MOUTH Clinics TWICE A DAY tramadol 50 tramadol 50 No tramadol [facility] mg tablet mg tablet 50 mg Comm uni TAKE 1 TAKE 1 tablet ty TABLET BY TABLET BY TAKE 1 [facility] MOUTH EVERY MOUTH EVERY TABLET BY l 8 HOURS 8 HOURS MOUTH Cl inics NEEDED FOR NEEDED FOR EVERY 8 PAIN PAIN HOURS NEEDED FOR PAIN amlodipine amlodipine No amlodipine [facility] 5 mg tablet 5 mg tablet 5 mg C [facility] TAKE 1 TAKE 1 tablet ty TABLET BY TABLET BY TAKE 1 [facility] MOUTH EVERY MOUTH EVERY TABLET BY l DAY DAY MOUTH Clinics EVERY DAY atorvastati atorvastati No atorvastat [facility] n 20 mg n 20 mg in 20 mg Commu ni tablet TAKE tablet TAKE tablet ty 1 TABLET BY 1 TABLET BY TAKE 1 Hospita MOUTH EVERY MOUTH EVERY TABLET BY l DAY FOR 90 DAY FOR 90 MOUTH Cl inics DAYS DAYS EVERY DAY FOR 90 DAYS BD Kalee 2nd BD Kalee 2nd No BD Kalee [facility] Gen Pen Gen Pen 2nd Gen Commun i Needle 32 Needle 32 Pen Needle ty gauge x gauge x 32 gauge x Hos michael " 1 " 1 " 1 l TIME A DAY TIME A DAY TIME A DAY Clinics cefdinir cefdinir No cefdinir Swe made[facility] 300 mg 300 mg 300 mg Communi capsule capsule capsule ty TAKE 1 TAKE 1 TAKE 1 Hospita CAPSULE BY CAPSULE BY CAPSULE BY l MOUTH EVERY MOUTH EVERY MOUTH Clinics 12 HOURS 12 HOURS EVERY 12 HOURS cholecalcif cholecalcif No cholecalci [facility] ghada ghada ferol Communi (vitamin (vitamin (vitamin ty D3) 1,250 D3) 1,250 D3) 1,250 Hospita mcg (50,000 mcg (50,000 mcg l unit) unit) (50,000 Clinics capsule capsule unit) TAKE 1 TAKE 1 capsule CAPSULE BY CAPSULE BY TAKE 1 MOUTH EVERY MOUTH EVERY CAPSULE BY 15 DAYS 15 DAYS MOUTH EVERY 15 DAYS ciprofloxac ciprofloxac No ciprofloxa [facility] in 500 mg in 500 mg anju 500 mg Communi tablet tablet tablet ty Hospita l Clinics clonazepam clonazepam No clonazepam [facility] 0.5 mg 0.5 mg 0.5 mg Communi tablet TAKE tablet TAKE tablet ty 1 TABLET BY 1 TABLET BY TAKE 1 Hospita MOUTH EVERY MOUTH EVERY TABLET BY l DAY DAY MOUTH Clinics NEEDED NEEDED EVERY DAY NEEDED docusate docusate No docusate Swe made[facility] sodium 100 sodium 100 sodium 100 Communi mg capsule mg capsule mg capsule ty TAKE 1 TAKE 1 TAKE 1 Hospita CAPSULE BY CAPSULE BY CAPSULE BY l MOUTH EVERY MOUTH EVERY MOUTH Clinics DAY DAY EVERY DAY doxycycline doxycycline No doxycyclin [facility] hyclate 100 hyclate 100 e hyclate Communi mg capsule mg capsule 100 mg t y TAKE 1 TAKE 1 capsule Hospita CAPSULE BY CAPSULE BY TAKE 1 l MOUTH TWICE MOUTH TWICE CAPSULE BY Clinics A DAY A DAY MOUTH TWICE A DAY famotidine famotidine No famotidine [facility] 20 mg 20 mg 20 mg Communi tablet TAKE tablet TAKE tablet ty 1 TABLET BY 1 TABLET BY TAKE 1 Hospita MOUTH AT MOUTH AT TABLET BY l BEDTIME BEDTIME MOUTH AT Clini cs BEDTIME glipizide glipizide No glipizide [facility] ER 2.5 mg ER 2.5 mg ER 2.5 mg Communi tablet, tablet, tablet, ty extended extended extended [facility] release 24 release 24 release 24 l hr TAKE 2 hr TAKE 2 hr TAKE 2 Clinics TABLETS (5 TABLETS (5 TABLETS (5 MG) BY MG) BY MG) BY MOUTH DAILY MOUTH DAILY MOUTH WITH WITH DAILY WITH BREAKFAST BREAKFAST BREAKFAST Humatrope 6 Humatrope 6 No Humatrope [facility] mg (18 mg (18 6 mg (18 Communi unit) unit) unit) ty injection injection injection Hospita cartridge cartridge cartridge l INJECT INJECT INJECT Clinics 0.3MG 0.3MG 0.3MG SUBCUTANEOU SUBCUTANEOU SUBCUTANEO SLY ONCE A SLY ONCE A USLY ONCE DAY. DAY. A DAY. hydrocodone hydrocodone No hydrocodon [facility] 5 5 e 5 Communi mg-acetamin mg-acetamin mg-acetami ty ophen 325 ophen 325 nophen 325 Hospita mg tablet mg tablet mg tablet l Clinics hydrocortis hydrocortis No hydrocorti [facility] one 20 mg one 20 mg sone 20 mg Communi tablet TAKE tablet TAKE tablet ty 1 TABLET BY 1 TABLET BY TAKE 1 Hospita MOUTH WITH MOUTH WITH TABLET BY l BREAKFAST, BREAKFAST, MOUTH WITH Clinics THEN TAKE 2 THEN TAKE 2 BREAKFAST, TABLETS TABLETS THEN TAKE WITH WITH 2 TABLETS DINNER. DINNER. WITH DINNER. isosorbide isosorbide No isosorbide [facility] mononitrate mononitrate mononitrat Communi ER 30 mg ER 30 mg e ER 30 mg t y tablet,exte tablet,exte tablet,ext Hospita nded nded ended l release 24 release 24 release 24 Clinics hr TAKE 1 hr TAKE 1 hr TAKE 1 TABLET BY TABLET BY TABLET BY MOUTH EVERY MOUTH EVERY MOUTH DAY DAY EVERY DAY Klor-Con 10 Klor-Con 10 No Klor-Con [facility] mEq mEq 10 mEq Communi tablet,exte tablet,exte tablet,ext ty nded nded ended Hospita release release release l TAKE 1 TAKE 1 TAKE 1 Clinics TABLET BY TABLET BY TABLET BY MOUTH EVERY MOUTH EVERY MOUTH DAY WITH DAY WITH EVERY DAY FOOD FOOD WITH FOOD levothyroxi levothyroxi No levothyrox [facility] ne 112 mcg ne 112 mcg ine 112 Communi tablet TAKE tablet TAKE mcg tablet ty 1 TABLET BY 1 TABLET BY TAKE 1 Hospita MOUTH ONCE MOUTH ONCE TABLET BY l DAILY 1/2 DAILY 1/2 MOUTH ONCE Clinics HOUR BEFOR HOUR BEFOR DAILY 1/2 BREKFAST BREKFAST HOUR BEFOR WITH WATER WITH WATER BREKFAST WITH WATER lidocaine 5 lidocaine 5 No lidocaine [facility] % topical % topical 5 % Commu ni patch APPLY patch APPLY topical ty 1 PATCH BY 1 PATCH BY patch Ho spita TOPICAL TOPICAL APPLY 1 l ROUTE ONCE ROUTE ONCE PATCH BY Clinics DAILY (MAY DAILY (MAY TOPICAL WEAR UP TO WEAR UP TO ROUTE ONCE 12HOURS.) 12HOURS.) DAILY (MAY WEAR UP TO 12HOURS.) liothyronin liothyronin No liothyroni [facility] e 5 mcg e 5 mcg ne 5 mcg Commu ni tablet TAKE tablet TAKE tablet ty 2 TABS 2 TABS TAKE 2 Hospita TUES, TUES, TABS TUES, l THURS, SAT, THURS, SAT, THURS, Clinics SUN. TAKE 1 SUN. TAKE 1 SAT, SUN. TAB MON, TAB MON, TAKE 1 TAB WED, FRI WED, FRI MON, WED, HALF HOUR HALF HOUR FRI HALF BEFORE BEFORE HOUR BREAKFAST BREAKFAST BEFORE WITH WATER WITH WATER BREAKFAST WITH WATER losartan 50 losartan 50 No losartan [facility] mg tablet mg tablet 50 mg Comm uni TAKE 1 TAKE 1 tablet ty TABLET BY TABLET BY TAKE 1 [facility] MOUTH EVERY MOUTH EVERY TABLET BY l DAY FOR 90 DAY FOR 90 MOUTH Cl inics DAYS DAYS EVERY DAY FOR 90 DAYS mirtazapine mirtazapine No mirtazapin [facility] 15 mg 15 mg e 15 mg Communi tablet TAKE tablet TAKE tablet ty 1 TABLET BY 1 TABLET BY TAKE 1 Hospita MOUTH MOUTH TABLET BY l EVERYDAY AT EVERYDAY AT MOUTH Clinics BEDTIME BEDTIME EVERYDAY AT BEDTIME mupirocin 2 mupirocin 2 No mupirocin [facility] % topical % topical 2 % Commu ni ointment ointment topical ty APPLY A APPLY A ointment Hospi ta SMALL SMALL APPLY A l AMOUNT TO AMOUNT TO SMALL Clin ics THE THE AMOUNT TO AFFECTED AFFECTED THE AREA BY AREA BY AFFECTED TOPICAL TOPICAL AREA BY ROUTE UP TO ROUTE UP TO TOPICAL 3 TIMES PER 3 TIMES PER ROUTE UP DAY DAY TO 3 TIMES NEEDED NEEDED PER DAY NEEDED nitroglycer nitroglycer No 1 nitroglyce [facility] in 0.4 mg in 0.4 mg rin 0.4 mg Communi sublingual sublingual sublingual ty tablet tablet tablet Hospita Place [address] 1 l tablet as tablet as tablet as Clinics needed by needed by needed by sublingual sublingual sublingual route. route. route. omeprazole omeprazole No omeprazole [facility] 40 mg 40 mg 40 mg Communi capsule,del capsule,del capsule,de ty ayed ayed layed Hospita release release release l TAKE 1 TAKE 1 TAKE 1 Clinics CAPSULE BY CAPSULE BY CAPSULE BY MOUTH EVERY MOUTH EVERY MOUTH MORNING MORNING EVERY MORNING OneTouch OneTouch No OneTouch Swe madeleine Del[facility] Plus [facility] Plus [facility] Communi Lancet 30 Lancet 30 Plus ty gauge TEST gauge TEST Lancet 30 Hospita TWICE A DAY TWICE A DAY gauge TEST l TWICE A Clinics DAY OneTouch OneTouch No OneTouch Swe madeleine Verio Flex Verio Flex Verio Flex Communi Meter FOR Meter FOR Meter FOR ty TESTING.1 TESTING.1 TESTING.1 Hospita BOX ICD 10 BOX ICD 10 BOX ICD 10 l E11.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.65 Clinics OneTouch OneTouch No OneTouch Swe madeleine Verio test Verio test Verio test Communi strips TEST strips TEST strips ty TWICE A DAY TWICE A DAY TEST TWICE Hospita A DAY l Clinics potassium potassium No potassium [facility] chloride ER chloride ER chloride Communi 20 mEq 20 mEq ER 20 mEq ty tablet,exte tablet,exte tablet,ext Hospita nded nded ended l release(par release(par release(pa Clinics t/cryst) t/cryst) rt/cryst) TAKE 1 TAKE 1 TAKE 1 TABLET BY TABLET BY TABLET BY MOUTH EVERY MOUTH EVERY MOUTH DAY DAY EVERY DAY Santyl 250 Santyl 250 No Santyl 250 [facility] unit/gram unit/gram unit/gram Communi topical topical topical ty ointment ointment ointment [facility] APPLY A APPLY A APPLY A l [facility] THICK THICK THICK AMOUNT TO AMOUNT TO AMOUNT TO WOUND 3 WOUND 3 WOUND 3 TIMES A TIMES A TIMES A WEEK WEEK WEEK sotalol 160 sotalol 160 No sotalol [facility] mg tablet mg tablet 160 mg Com raz TAKE 1 TAKE 1 tablet ty TABLET BY TABLET BY TAKE 1 [facility] MOUTH EVERY MOUTH EVERY TABLET BY l 12 HOURS 12 HOURS MOUTH Clinic s FOR 90 DAYS FOR 90 DAYS EVERY 12 HOURS FOR 90 DAYS tramadol 50 tramadol 50 No tramadol [facility] mg tablet mg tablet 50 mg Comm uni TAKE 1 TAKE 1 tablet ty TABLET BY TABLET BY TAKE 1 Hos [facility] MOUTH EVERY MOUTH EVERY TABLET BY l 12 HOURS 12 HOURS MOUTH Clinics NEEDED FOR NEEDED FOR EVERY 12 PAIN PAIN HOURS NEEDED FOR PAIN amlodipine amlodipine No amlodipine [facility] 5 mg tablet 5 mg tablet 5 mg C [facility] TAKE 1 TAKE 1 tablet ty TABLET BY TABLET BY TAKE 1 [facility] MOUTH EVERY MOUTH EVERY TABLET BY l DAY FOR 90 DAY FOR 90 MOUTH Cl inics DAYS DAYS EVERY DAY FOR 90 DAYS atorvastati atorvastati No atorvastat [facility] n 20 mg n 20 mg in 20 mg Commu ni tablet TAKE tablet TAKE tablet ty 1 TABLET BY 1 TABLET BY TAKE 1 Hospita MOUTH EVERY MOUTH EVERY TABLET BY l DAY DAY MOUTH Clinics EVERY DAY BD Kalee 2nd BD Kalee 2nd No BD Kalee [facility] Gen Pen Gen Pen 2nd Gen Commun i Needle 32 Needle 32 Pen Needle ty gauge x gauge x 32 gauge x Hos michael " 1 " 1 " 1 l TIME A DAY TIME A DAY TIME A DAY Clinics cefdinir cefdinir No cefdinir Swe madeleine 300 mg 300 mg 300 mg Communi capsule capsule capsule ty TAKE 1 TAKE 1 TAKE 1 Hospita CAPSULE BY CAPSULE BY CAPSULE BY l MOUTH EVERY MOUTH EVERY MOUTH Clinics 12 HOURS 12 HOURS EVERY 12 HOURS cholecalcif cholecalcif No cholecalci [facility] ghada ghada ferol Communi (vitamin (vitamin (vitamin ty D3) 1,250 D3) 1,250 D3) 1,250 Hospita mcg (50,000 mcg (50,000 mcg l unit) unit) (50,000 Clinics capsule capsule unit) TAKE 1 TAKE 1 capsule CAPSULE BY CAPSULE BY TAKE 1 MOUTH EVERY MOUTH EVERY CAPSULE BY 15 DAYS 15 DAYS MOUTH EVERY 15 DAYS ciprofloxac ciprofloxac No ciprofloxa [facility] in 500 mg in 500 mg anuj 500 mg Communi tablet tablet tablet ty Hospita l Clinics clonazepam clonazepam No clonazepam [facility] 0.5 mg 0.5 mg 0.5 mg Communi tablet TAKE tablet TAKE tablet ty 1 TABLET BY 1 TABLET BY TAKE 1 Hospita MOUTH EVERY MOUTH EVERY TABLET BY l DAY DAY MOUTH Clinics NEEDED NEEDED EVERY DAY NEEDED docusate docusate No docusate Swe madeleine sodium 100 sodium 100 sodium 100 Communi mg capsule mg capsule mg capsule ty TAKE 1 TAKE 1 TAKE 1 Hospita CAPSULE BY CAPSULE BY CAPSULE BY l MOUTH EVERY MOUTH EVERY MOUTH Clinics DAY DAY EVERY DAY doxycycline doxycycline No doxycyclin [facility] hyclate 100 hyclate 100 e hyclate Communi mg capsule mg capsule 100 mg t y TAKE 1 TAKE 1 capsule Hospita CAPSULE BY CAPSULE BY TAKE 1 l MOUTH TWICE MOUTH TWICE CAPSULE BY Clinics A DAY A DAY MOUTH TWICE A DAY famotidine famotidine No famotidine [facility] 20 mg 20 mg 20 mg Communi tablet TAKE tablet TAKE tablet ty 1 TABLET BY 1 TABLET BY TAKE 1 Hospita MOUTH EVERY MOUTH EVERY TABLET BY l DAY DAY MOUTH Clinics EVERY DAY gabapentin gabapentin No gabapentin [facility] 100 mg 100 mg 100 mg Communi capsule capsule capsule ty TAKE 1 TAKE 1 TAKE 1 Hospita CAPSULE BY CAPSULE BY CAPSULE BY l MOUTH AT MOUTH AT MOUTH AT Cli nics BEDTIME BEDTIME BEDTIME glipizide glipizide No glipizide [facility] ER 2.5 mg ER 2.5 mg ER 2.5 mg Communi tablet, tablet, tablet, ty extended extended extended [facility] release 24 release 24 release 24 l hr TAKE 2 hr TAKE 2 hr TAKE 2 Clinics TABLETS (5 TABLETS (5 TABLETS (5 MG) BY MG) BY MG) BY MOUTH DAILY MOUTH DAILY MOUTH WITH WITH DAILY WITH BREAKFAST BREAKFAST BREAKFAST Humatrope 6 Humatrope 6 No Humatrope [facility] mg (18 mg (18 6 mg (18 Communi unit) unit) unit) ty injection injection injection [facility] cartridge cartridge cartridge l INJECT INJECT INJECT Clinics 0.3MG 0.3MG 0.3MG SUBCUTANEOU SUBCUTANEOU SUBCUTANEO SLY ONCE A SLY ONCE A USLY ONCE DAY. DAY. A DAY. hydrocodone hydrocodone No hydrocodon [facility] 5 5 e 5 Communi mg-acetamin mg-acetamin mg-acetami ty ophen 325 ophen 325 nophen 325 Hospita mg tablet mg tablet mg tablet l Clinics hydrocortis hydrocortis No hydrocorti [facility] one 20 mg one 20 mg sone 20 mg Communi tablet TAKE tablet TAKE tablet ty 1 TABLET BY 1 TABLET BY TAKE 1 Hospita MOUTH WITH MOUTH WITH TABLET BY l BREAKFAST, BREAKFAST, MOUTH WITH Clinics THEN TAKE 2 THEN TAKE 2 BREAKFAST, TABLETS TABLETS THEN TAKE WITH WITH 2 TABLETS DINNER. DINNER. WITH DINNER. hydrocortis hydrocortis No hydrocorti [facility] one 5 mg one 5 mg sone 5 mg Co [facility]i tablet TAKE tablet TAKE tablet ty 3 TABLETS 3 TABLETS TAKE 3 [facility] BY MOUTH BY MOUTH TABLETS BY l EVERY EVERY MOUTH Clinics MORNING AND MORNING AND EVERY TAKE 1 TAKE 1 MORNING TABLET BY TABLET BY AND TAKE 1 MOUTH EVERY MOUTH EVERY TABLET BY EVENING EVENING MOUTH EVERY EVENING isosorbide isosorbide No isosorbide [facility] mononitrate mononitrate mononitrat Communi ER 30 mg ER 30 mg e ER 30 mg t y tablet,exte tablet,exte tablet,ext Hospita nded nded ended l release 24 release 24 release 24 Clinics hr TAKE 1 hr TAKE 1 hr TAKE 1 TABLET BY TABLET BY TABLET BY MOUTH EVERY MOUTH EVERY MOUTH DAY DAY EVERY DAY Klor-Con 10 Klor-Con 10 No Klor-Con [facility] mEq mEq 10 mEq Communi tablet,exte tablet,exte tablet,ext ty nded nded ended Hospita release release release l TAKE 1 TAKE 1 TAKE 1 Clinics TABLET BY TABLET BY TABLET BY MOUTH EVERY MOUTH EVERY MOUTH DAY WITH DAY WITH EVERY DAY FOOD FOOD WITH FOOD levothyroxi levothyroxi No levothyrox [facility] ne 112 mcg ne 112 mcg ine 112 Communi tablet TAKE tablet TAKE mcg tablet ty 1 TABLET BY 1 TABLET BY TAKE 1 Hospita MOUTH EVERY MOUTH EVERY TABLET BY l DAY DAY MOUTH Clinics EVERY DAY lidocaine 5 lidocaine 5 No lidocaine [facility] % topical % topical 5 % Commu ni patch APPLY patch APPLY topical ty 1 PATCH BY 1 PATCH BY patch Ho spita TOPICAL TOPICAL APPLY 1 l ROUTE ONCE ROUTE ONCE PATCH BY Clinics DAILY (MAY DAILY (MAY TOPICAL WEAR UP TO WEAR UP TO ROUTE ONCE 12HOURS.) 12HOURS.) DAILY (MAY WEAR UP TO 12HOURS.) liothyronin liothyronin No liothyroni [facility] e 5 mcg e 5 mcg ne 5 mcg Commu ni tablet TAKE tablet TAKE tablet ty 2 TABS 2 TABS TAKE 2 Hospita TUES, TUES, TABS TUES, l THURS, SAT, THURS, SAT, THURS, Clinics SUN. TAKE 1 SUN. TAKE 1 SAT, SUN. TAB MON, TAB MON, TAKE 1 TAB TUE, FRI TUE, FRI TUE, WED, HALF HOUR HALF HOUR FRI HALF BEFORE BEFORE HOUR BREAKFAST BREAKFAST BEFORE WITH WATER WITH WATER BREAKFAST WITH WATER losartan 50 losartan 50 No losartan [facility] mg tablet mg tablet 50 mg Comm uni TAKE 1 TAKE 1 tablet ty TABLET BY TABLET BY TAKE 1 [facility] MOUTH EVERY MOUTH EVERY TABLET BY l DAY FOR 90 DAY FOR 90 MOUTH Cl inics DAYS DAYS EVERY DAY FOR 90 DAYS mirtazapine mirtazapine No mirtazapin [facility] 15 mg 15 mg e 15 mg Communi tablet TAKE tablet TAKE tablet ty 1 TABLET BY 1 TABLET BY TAKE 1 Hospita MOUTH MOUTH TABLET BY l EVERYDAY AT EVERYDAY AT MOUTH Clinics BEDTIME BEDTIME EVERYDAY AT BEDTIME mupirocin 2 mupirocin 2 No mupirocin [facility] % topical % topical 2 % Commu ni ointment ointment topical ty APPLY A APPLY A ointment Hospi ta SMALL SMALL APPLY A l AMOUNT TO AMOUNT TO SMALL Clin ics THE THE AMOUNT TO AFFECTED AFFECTED THE AREA BY AREA BY AFFECTED TOPICAL TOPICAL AREA BY ROUTE UP TO ROUTE UP TO TOPICAL 3 TIMES PER 3 TIMES PER ROUTE UP DAY DAY TO 3 TIMES NEEDED NEEDED PER DAY NEEDED nitroglycer nitroglycer No 1 nitroglyce [facility] in 0.4 mg in 0.4 mg rin 0.4 mg Communi sublingual sublingual sublingual ty tablet tablet tablet Hospita Place [address] 1 l tablet as tablet as tablet as Clinics needed by needed by needed by sublingual sublingual sublingual route. route. route. Immunizations Ordered Immunization Filled Immunization Date Status Commen ts Source Name Name influenza, influenza, 2022-05-05 Completed [facility] ty high-dose, high-dose, 00:00:00 [facility] quadrivalent quadrivalent Pneumococcal Pneumococcal 2022-05-05 Completed [facility] munity conjugate PCV20, conjugate PCV20, 00:00:00 [facility] polysaccharide polysaccharide [id number] conjugate, [id number] conjugate, adjuvant, PF adjuvant, PF influenza, influenza, 2022-05-05 Completed [facility] Communi ty high-dose, high-dose, 00:00:00 Hospital [facility] quadrivalent quadrivalent Pneumococcal Pneumococcal 2022-05-05 Completed [facility] munity conjugate PCV20, conjugate PCV20, 00:00:00 [facility] polysaccharide polysaccharide [id number] conjugate, [id number] conjugate, adjuvant, PF adjuvant, PF influenza, influenza, 2022-05-05 Completed [facility] Communi ty high-dose, high-dose, 00:00:00 Hospital [facility] quadrivalent quadrivalent Pneumococcal Pneumococcal 2022-05-05 Completed [facility] munity conjugate PCV20, conjugate PCV20, 00:00:00 [facility] polysaccharide polysaccharide [id number] conjugate, [id number] conjugate, adjuvant, PF adjuvant, PF COVID-19, mRNA, COVID-19, mRNA, 2022-03-19 Completed [facility] LNP-S, PF, 30 LNP-S, PF, 30 00:00:00 [facility] mcg/0.3 mL dose, mcg/0.3 mL dose, everette-sucrose everette-sucrose ([employer]) ([employer]) COVID-19, mRNA, COVID-19, mRNA, 2022-03-19 Completed [facility] LNP-S, PF, 30 LNP-S, PF, 30 00:00:00 [facility] mcg/0.3 mL dose, mcg/0.3 mL dose, everette-sucrose everette-sucrose ([employer]) ([employer]) COVID-19, mRNA, COVID-19, mRNA, 2022-03-19 Completed [facility] LNP-S, PF, 30 LNP-S, PF, 30 00:00:00 [facility] mcg/0.3 mL dose, mcg/0.3 mL dose, everette-sucrose everette-sucrose ([employer]) ([employer]) COVID-19, mRNA, COVID-19, mRNA, 2021-09-01 Completed [facility] LNP-S, PF, 30 LNP-S, PF, 30 00:00:00 [facility] mcg/0.3 mL dose mcg/0.3 mL dose ([employer]) ([employer]) COVID-19, mRNA, COVID-19, mRNA, 2021-09-01 Completed [facility] LNP-S, PF, 30 LNP-S, PF, 30 00:00:00 [facility] mcg/0.3 mL dose mcg/0.3 mL dose ([employer]) ([employer]) COVID-19, mRNA, COVID-19, mRNA, 2021-09-01 Completed [facility] LNP-S, PF, 30 LNP-S, PF, 30 00:00:00 [facility] mcg/0.3 mL dose mcg/0.3 mL dose ([employer]) ([employer]) COVID-19 COVID-19 2020-11-02 Completed [facility] (SARS-COV-2) (SARS-COV-2) 00:00:00 [facility] linics vaccine, unspecified vaccine, unspecified COVID-19 COVID-19 2020-11-02 Completed [facility] (SARS-COV-2) (SARS-COV-2) 00:00:00 [facility] linics vaccine, unspecified vaccine, unspecified COVID-19 COVID-19 2020-11-02 Completed [facility] (SARS-COV-2) (SARS-COV-2) 00:00:00 [facility] linics vaccine, unspecified vaccine, unspecified COVID-19 COVID-19 2020-11-02 Completed [facility] (SARS-COV-2) (SARS-COV-2) 00:00:00 [facility] linics vaccine, unspecified vaccine, unspecified COVID-19 COVID-19 2020-11-02 Completed [facility] (SARS-COV-2) (SARS-COV-2) 00:00:00 [facility] linics vaccine, unspecified vaccine, unspecified COVID-19 COVID-19 2020-11-02 Completed [facility] (SARS-COV-2) (SARS-COV-2) 00:00:00 [facility] linics vaccine, unspecified vaccine, unspecified COVID-19 COVID-19 2020-11-02 Completed [facility] (SARS-COV-2) (SARS-COV-2) 00:00:00 [facility] linics vaccine, unspecified vaccine, unspecified COVID-19 COVID-19 2020-11-02 Completed [facility] (SARS-COV-2) (SARS-COV-2) 00:00:00 [facility] linics vaccine, unspecified vaccine, unspecified COVID-19 COVID-19 2020-11-02 Completed [facility] (SARS-COV-2) (SARS-COV-2) 00:00:00 [facility] linics vaccine, unspecified vaccine, unspecified COVID-19 COVID-19 2020-11-02 Completed [facility] (SARS-COV-2) (SARS-COV-2) 00:00:00 [facility] linics vaccine, unspecified vaccine, unspecified COVID-19 COVID-19 2020-11-02 Completed [facility] (SARS-COV-2) (SARS-COV-2) 00:00:00 [facility] linics vaccine, unspecified vaccine, unspecified COVID-19 COVID-19 2020-11-02 Completed [facility] (SARS-COV-2) (SARS-COV-2) 00:00:00 [facility] linics vaccine, unspecified vaccine, unspecified COVID-19 COVID-19 2020-11-02 Completed [facility] (SARS-COV-2) (SARS-COV-2) 00:00:00 [facility] linics vaccine, unspecified vaccine, unspecified COVID-19 COVID-19 2020-11-02 Completed [facility] (SARS-COV-2) (SARS-COV-2) 00:00:00 [facility] linics vaccine, unspecified vaccine, unspecified COVID-19 COVID-19 2020-11-02 Completed [facility] (SARS-COV-2) (SARS-COV-2) 00:00:00 [facility] linics vaccine, unspecified vaccine, unspecified COVID-19 COVID-19 2020-11-02 Completed [facility] (SARS-COV-2) (SARS-COV-2) 00:00:00 [facility] linics vaccine, unspecified vaccine, unspecified SARS-COV-2 COVID-19 2020-10-25 Completed [facility]ERNA VACCINE 00:00:00 [facility] SARS-COV-2 COVID-19 2020-10-25 Completed [facility] VACCINE 00:00:00 [facility] COVID-19 COVID-19 2020-09-27 Completed [facility] (SARS-COV-2) (SARS-COV-2) 00:00:00 [facility] linics vaccine, unspecified vaccine, unspecified COVID-19 COVID-19 2020-09-27 Completed [facility] (SARS-COV-2) (SARS-COV-2) 00:00:00 [facility] linics vaccine, unspecified vaccine, unspecified COVID-19 COVID-19 2020-09-27 Completed [facility] (SARS-COV-2) (SARS-COV-2) 00:00:00 [facility] linics vaccine, unspecified vaccine, unspecified COVID-19 COVID-19 2020-09-27 Completed [facility] (SARS-COV-2) (SARS-COV-2) 00:00:00 [facility] linics vaccine, unspecified vaccine, unspecified COVID-19 COVID-19 2020-09-27 Completed [facility] (SARS-COV-2) (SARS-COV-2) 00:00:00 [facility] linics vaccine, unspecified vaccine, unspecified COVID-19 COVID-19 2020-09-27 Completed [facility] (SARS-COV-2) (SARS-COV-2) 00:00:00 [facility] linics vaccine, unspecified vaccine, unspecified COVID-19 COVID-19 2020-09-27 Completed [facility] (SARS-COV-2) (SARS-COV-2) 00:00:00 [facility] linics vaccine, unspecified vaccine, unspecified COVID-19 COVID-19 2020-09-27 Completed [facility] (SARS-COV-2) (SARS-COV-2) 00:00:00 [facility] linics vaccine, unspecified vaccine, unspecified COVID-19 COVID-19 2020-09-27 Completed [facility] (SARS-COV-2) (SARS-COV-2) 00:00:00 [facility] linics vaccine, unspecified vaccine, unspecified COVID-19 COVID-19 2020-09-27 Completed [facility] (SARS-COV-2) (SARS-COV-2) 00:00:00 [facility] linics vaccine, unspecified vaccine, unspecified COVID-19 COVID-19 2020-09-27 Completed [facility] (SARS-COV-2) (SARS-COV-2) 00:00:00 [facility] linics vaccine, unspecified vaccine, unspecified COVID-19 COVID-19 2020-09-27 Completed [facility] (SARS-COV-2) (SARS-COV-2) 00:00:00 [facility]ics vaccine, unspecified vaccine, unspecified COVID-19 COVID-19 2020-09-27 Completed [facility] (SARS-COV-2) (SARS-COV-2) 00:00:00 [facility]ics vaccine, unspecified vaccine, unspecified COVID-19 COVID-19 2020-09-27 Completed [facility] (SARS-COV-2) (SARS-COV-2) 00:00:00 [facility] vaccine, unspecified vaccine, unspecified COVID-19 COVID-19 2020-09-27 Completed [facility] (SARS-COV-2) (SARS-COV-2) 00:00:00 [facility] linics vaccine, unspecified vaccine, unspecified COVID-19 COVID-19 2020-09-27 Completed [facility] (SARS-COV-2) (SARS-COV-2) 00:00:00 [facility] vaccine, unspecified vaccine, unspecified SARS-COV-2 COVID-19 2020-09-27 Completed [facility] VACCINE 00:00:00 [facility] SARS-COV-2 COVID-19 2020-09-27 Completed [facility] VACCINE 00:00:00 [facility] influenza, influenza, 2020-05-07 Completed [facility] injectable, injectable, [facility] quad[facility], influenza, 2020-05-07 Completed [facility] injectable, injectable, 00:00:00 [facility] quadrivalent influenza, influenza, 2020-05-07 Completed [facility] injectable, injectable, 00:00:00 [facility] quadrivalent influenza, influenza, 2020-05-07 Completed [facility] injectable, injectable, 00:00:00 [facility] quadrivalent influenza, influenza, 2020-05-07 Completed [facility] injectable, injectable, 00:00:00 [facility] quadrivalent quadrivalent influenza, influenza, 2020-05-07 Completed [facility] injectable, injectable, 00:00:00 [facility] quadrivalent influenza, influenza, 2020-05-07 Completed [facility] injectable, injectable, 00:00:00 [facility] quadrivalent influenza, influenza, 2020-05-07 Completed [facility] injectable, injectable, 00:00:00 [facility] quadrivalent influenza, influenza, 2020-05-07 Completed [facility] injectable, injectable, 00:00:00 [facility] quadrivalent influenza, influenza, 2020-05-07 Completed [facility] injectable, injectable, 00:00:00 [facility] quadrivalent influenza, influenza, 2020-05-07 Completed [facility] injectable, injectable, 00:00:00 [facility] quadrivalent influenza, influenza, 2020-05-07 Completed [facility] injectable, injectable, 00:00:00 [facility] quadrivalent influenza, influenza, 2020-05-07 Completed [facility] injectable, injectable, 00:00:00 [facility] quadrivalent influenza, influenza, 2020-05-07 Completed [facility] injectable, injectable, 00:00:00 [facility] quadrivalent influenza, influenza, 2020-05-07 Completed [facility] injectable, injectable, 00:00:00 [facility] quadrivalent influenza, influenza, 2020-05-07 Completed [facility] injectable, injectable, 00:00:00 [facility] quadrivalent influenza, influenza, 2020-05-07 Completed [facility] injectable, injectable, 00:00:00 [facility] quadriv[facility] quadrivalent influenza, influenza, 2020-05-07 Completed [facility] injectable, injectable, 00:00:00 [facility] quadrivalent influenza, influenza, 2020-05-07 Completed [facility] injectable, injectable, 00:00:00 [facility] quad[facility] quadrivalent influenza, influenza, 2020-05-07 Completed [facility] injectable, injectable, 00:00:00 [facility] quadrivalent influenza, influenza, 2020-05-07 Completed [facility] injectable, injectable, 00:00:00 [facility] quadrivalent influenza, influenza, 2020-05-07 Completed [facility] injectable, injectable, 00:00:00 [facility] quadriv[facility] quadrivalent influenza, influenza, 2020-05-07 Completed [facility] injectable, injectable, 00:00:00 [facility] quadrivalent influenza, influenza, 2020-05-07 Completed [facility] injectable, injectable, 00:00:00 [facility] quadrivalent influenza, influenza, 2020-05-07 Completed [facility] injectable, injectable, 00:00:00 [facility] quadriv[facility] quadrivalent influenza, influenza, 2020-05-07 Completed [facility] injectable, injectable, 00:00:00 [facility] quadrivalent quadrivalent influenza, influenza, 2020-05-07 Completed [facility] injectable, injectable, 00:00:00 [facility] quadrivalent quadrivalent influenza, influenza, 2020-05-07 Completed [facility] injectable, injectable, 00:00:00 [facility] quadrivalent Influenza Virus 2020-05-07 Completed [facility] [place] [facility] Influenza Virus 2020-05-07 Completed [facility]00 [place] [facility] 6[facility] influenza, influenza, 2019-07-10 Completed [facility] injectable, injectable, 00:00:00 [facility] quadrivalent influenza, influenza, 2019-07-10 Completed [facility] injectable, injectable, 00:00:00 [facility] quadriv[facility] quadrivalent influenza, influenza, 2019-07-10 Completed [facility] injectable, injectable, 00:00:00 [facility] quadriv[facility] quadrivalent influenza, influenza, 2019-07-10 Completed [facility] injectable, injectable, 00:00:00 [facility] quadriv[facility] quadrivalent influenza, influenza, 2019-07-10 Completed [facility] injectable, injectable, 00:00:00 [facility] quadrivalent quadrivalent influenza, influenza, 2019-07-10 Completed [facility] injectable, injectable, 00:00:00 [facility] quadrivalent quadrivalent influenza, influenza, 2019-07-10 Completed [facility] injectable, injectable, 00:00:00 [facility] quadrivalent quadrivalent influenza, influenza, 2019-07-10 Completed [facility] injectable, injectable, 00:00:00 [facility] quadrivalent quadrivalent influenza, influenza, 2019-07-10 Completed [facility] injectable, injectable, 00:00:00 [facility] quadrivalent quadrivalent influenza, influenza, 2019-07-10 Completed [facility] injectable, injectable, 00:00:00 [facility] quadrivalent quadrivalent influenza, influenza, 2019-07-10 Completed [facility] injectable, injectable, 00:00:00 [facility] quadrivalent quadrivalent influenza, influenza, 2019-07-10 Completed [facility] injectable, injectable, 00:00:00 [facility] quadrivalent quadrivalent influenza, influenza, 2019-07-10 Completed [facility] injectable, injectable, 00:00:00 [facility] quadrivalent quadrivalent influenza, influenza, 2019-07-10 Completed [facility] injectable, injectable, 00:00:00 [facility] quadriv[facility] quadrivalent influenza, influenza, 2019-07-10 Completed [facility] injectable, injectable, 00:00:00 [facility] quadrivalent quadrivalent influenza, influenza, 2019-07-10 Completed [facility] injectable, injectable, 00:00:00 [facility] quadrivalent quadrivalent influenza, influenza, 2019-07-10 Completed [facility] injectable, injectable, 00:00:00 [facility] quadrivalent quadrivalent influenza, influenza, 2019-07-10 Completed [facility] injectable, injectable, 00:00:00 [facility] quadrivalent quadrivalent influenza, influenza, 2019-07-10 Completed [facility] injectable, injectable, 00:00:00 [facility] quadriv[facility] quadrivalent influenza, influenza, 2019-07-10 Completed [facility] injectable, injectable, 00:00:00 [facility] quadriv[facility] quadrivalent influenza, influenza, 2019-07-10 Completed [facility] injectable, injectable, 00:00:00 [facility] quadriv[facility] quadrivalent influenza, influenza, 2019-07-10 Completed [facility] injectable, injectable, 00:00:00 [facility] quadrivalent quadrivalent influenza, influenza, 2019-07-10 Completed [facility] injectable, injectable, 00:00:00 [facility] quadriv[facility] quadrivalent influenza, influenza, 2019-07-10 Completed [facility] injectable, injectable, 00:00:00 [facility] quadriv[facility] quadrivalent influenza, influenza, 2019-07-10 Completed [facility] injectable, injectable, 00:00:00 [facility] quadrivalent quadrivalent influenza, influenza, 2019-07-10 Completed [facility] injectable, injectable, 00:00:00 [facility] quadrivalent quadrivalent influenza, influenza, 2019-07-10 Completed [facility] injectable, injectable, 00:00:00 [facility] quadrivalent quadrivalent influenza, influenza, 2019-07-10 Completed [facility] injectable, injectable, 00:00:00 [facility] quad[facility] quadrivalent Influenza Virus 2019-07-10 Completed [facility] [place] [facility] 6[facility] Influenza Virus 2019-07-10 Completed [facility] 00:[facility]00 [place] [facility] 6+ [facility] Vital Signs Vital Name Observation Time Observation Value Comments Source Height 2022-12-06 00:00:00 64 [in_i] [facility] s BP Diastolic 2022-11-23 00:00:00 77 mm[Hg] [facility] s Height 2022-11-23 00:00:00 64 [in_i] [facility] s BMI (Body Mass 2022-11-23 00:00:00 29.9 kg/m2 [facility] s BP Systolic 2022-11-23 00:00:00 134 mm[Hg] [facility] s Body Weight 2022-11-23 00:00:00 2784 [oz_av] [facility] s BP Diastolic 2022-09-14 00:00:00 72 mm[Hg] [facility] s Height 2022-09-14 00:00:00 64 [in_i] [facility] s BP Systolic 2022-09-14 00:00:00 130 mm[Hg] [facility] s BP Diastolic 2022-02-16 00:00:00 70 mm[Hg] [facility] s Height 2022-02-16 00:00:00 64 [in_i] [facility] s BMI (Body Mass 2022-02-16 00:00:00 29.5 kg/m2 [facility] s BP Systolic 2022-02-16 00:00:00 108 mm[Hg] [facility] s Body Weight 2022-02-16 00:00:00 2752 [oz_av] [facility] s Height 2021-11-17 00:00:00 64 [in_i] [facility] s Height 2021-11-10 00:00:00 64 [in_i] [facility] Height 2021-11-09 00:00:00 64 [in_i] [facility] s Height 2021-11-06 00:00:00 64 [in_i] [facility] s Height 2021-11-03 00:00:00 64 [in_i] [facility] s Height 2021-11-02 00:00:00 64 [in_i] [facility] s BP Diastolic 2021-10-27 00:00:00 70 mm[Hg] [facility] s Height 2021-10-27 00:00:00 64 [in_i] [facility] s BP Systolic 2021-10-27 00:00:00 138 mm[Hg] [facility] s Height 2021-10-01 00:00:00 64 [in_i] [facility] s BP Diastolic 2021-09-01 00:00:00 70 mm[Hg] [facility] Height 2021-09-01 00:00:00 64 [in_i] [facility] s BMI (Body Mass 2021-09-01 00:00:00 28.3 kg/m2 [facility] s BP Systolic 2021-09-01 00:00:00 124 mm[Hg] [facility] s Body Weight 2021-09-01 00:00:00 2640 [oz_av] [facility] s BP Diastolic 2021-07-02 00:00:00 74 mm[Hg] [facility] s Height 2021-07-02 00:00:00 64 [in_i] [facility] s BMI (Body Mass 2021-07-02 00:00:00 29.4 kg/m2 [facility] s BP Systolic 2021-07-02 00:00:00 120 mm[Hg] [facility] s Body Weight 2021-07-02 00:00:00 2736 [oz_av] [facility] s BP Diastolic 2021-04-13 00:00:00 70 mm[Hg] [facility] s Height 2021-04-13 00:00:00 64 [in_i] [facility] s BMI (Body Mass 2021-04-13 00:00:00 28.3 kg/m2 [facility] s BP Systolic 2021-04-13 00:00:00 122 mm[Hg] [facility] Body Weight 2021-04-13 00:00:00 2640 [oz_av] [facility] s BP Diastolic 2021-04-06 00:00:00 84 mm[Hg] [facility] s Height 2021-04-06 00:00:00 64 [in_i] [facility] s BMI (Body Mass 2021-04-06 00:00:00 28.5 kg/m2 [facility] s BP Systolic 2021-04-06 00:00:00 138 mm[Hg] [facility] s Body Weight 2021-04-06 00:00:00 2656 [oz_av] [facility] s BP Diastolic 2021-03-20 00:00:00 88 mm[Hg] [facility] s Height 2021-03-20 00:00:00 64 [in_i] [facility] s BMI (Body Mass 2021-03-20 00:00:00 28.3 kg/m2 [facility] s BP Systolic 2021-03-20 00:00:00 144 mm[Hg] [facility] Body Weight 2021-03-20 00:00:00 2640 [oz_av] [facility] s BP Diastolic 2020-12-19 00:00:00 80 mm[Hg] [facility] s Height 2020-12-19 00:00:00 64 [in_i] [facility] s BMI (Body Mass 2020-12-19 00:00:00 28.5 kg/m2 [facility] s BP Systolic 2020-12-19 00:00:00 138 mm[Hg] [facility] Body Weight 2020-12-19 00:00:00 2656 [oz_av] [facility] s BP Diastolic 2020-11-17 00:00:00 78 mm[Hg] [facility] s Height 2020-11-17 00:00:00 64 [in_i] [facility] s BP Systolic 2020-11-17 00:00:00 140 mm[Hg] [facility] s BP Diastolic 2020-11-10 00:00:00 72 mm[Hg] [facility] Height 2020-11-10 00:00:00 64 [in_i] [facility] s BMI (Body Mass 2020-11-10 00:00:00 29.2 kg/m2 [facility] BP Systolic 2020-11-10 00:00:00 110 mm[Hg] [facility] Body Weight 2020-11-10 00:00:00 2720 [oz_av] [facility] s BP Diastolic 2020-10-27 00:00:00 70 mm[Hg] [facility] Height 2020-10-27 00:00:00 64 [in_i] [facility] s BMI (Body Mass 2020-10-27 00:00:00 31.9 kg/m2 [facility] s BP Systolic 2020-10-27 00:00:00 122 mm[Hg] [facility] Body Weight 2020-10-27 00:00:00 2976 [oz_av] [facility] BP Diastolic 2020-10-17 00:00:00 74 mm[Hg] [facility] Height 2020-10-17 00:00:00 64 [in_i] [facility] BMI (Body Mass 2020-10-17 00:00:00 28.8 kg/m2 [facility] s BP Systolic 2020-10-17 00:00:00 144 mm[Hg] [facility] Body Weight 2020-10-17 00:00:00 2688 [oz_av] [facility] Height 2020-09-23 00:00:00 64 [in_i] [facility] s BP Diastolic 2020-09-08 00:00:00 82 mm[Hg] [facility] Height 2020-09-08 00:00:00 64 [in_i] [facility] s BMI (Body Mass 2020-09-08 00:00:00 29.7 kg/m2 [facility] s BP Systolic 2020-09-08 00:00:00 158 mm[Hg] [facility] Body Weight 2020-09-08 00:00:00 2768 [oz_av] [facility] Body height 2022-05-17 15:02:00 162.6 cm [facility] Body weight 2022-05-17 15:02:00 77.565 kg [facility] BMI 2022-05-17 15:02:00 29.35 kg/m2 [facility] Systolic blood 2021-03-13 20:52:00 132 mm[Hg] [facility] Diastolic blood 2021-03-13 20:52:00 69 mm[facility]Hg[facility] 2021-03-13 20:52:00 63 /min [facility] Body temperature 2021-03-13 20:52:00 36.94 Noemy [facility] Respiratory rate 2021-03-13 20:52:00 18 /min [facility] Oxygen saturation in 2021-03-13 20:52:00 97 /min [facility] Arterial blood by [facility] Pulse oximetry Branch Body height 2021-03-11 07:30:00 162.6 cm [facility] Body weight 2021-03-11 07:30:00 76 kg bed scale [facility] BMI 2021-03-11 07:30:00 28.76 kg/m2 [facility] Procedures Procedure Date / Time Performing Clinician Source Performed ETHMOIDECTOMY, TOTAL, VIA 2022-07-05 16:30[facility] EXTRANASAL APPROACH Hip Pin for Fixation of 2022-05-18 00:00:00 [facility] Epiphysis [facility] MRI BRAIN W WO CONTRAST 2022-05-17 16:05:47 Marysol Nguyen [facility] AUTHORIZATION FOR RELEASE 2021-12-30 05:01:00 Doctor Unassigned, [facility] MAMMO, diagnostic, 2021-10-26 00:00:00 Van Antonio mmunity digital, [facility] Hospital Clin ics Tibial 2021-09-22 00:00:00 Van Gonzalez [facility] Arthroscopy/surgery Hospital Cli nics EXTERNAL PROVIDER RECORDS 2021-03-24 05:01:00 Doctor Unassigned, [facility] POCT GLUCOSE (AUTOMATED) 2021-03-13 16:51:00 Josy Syed Uni [facility] POCT GLUCOSE (AUTOMATED) 2021-03-13 13:05:00 Josy Syed [facility] CBC WITHOUT DIFF 2021-03-13 11:24:00 Harrison [facility] BASIC METABOLIC PANEL 2021-03-13 11:24:00 Harrison [facility] (NA, K, CL, CO2, GLUCOSE, Medica l Branch BUN, CREATININE, CA) POCT GLUCOSE (AUTOMATED) 2021-03-13 05:07:00 Josy Syed [facility] POCT GLUCOSE (AUTOMATED) 2021-03-12 23:47:00 Josy Syed [facility] CBC WITHOUT DIFF 2021-03-12 23:30:00 [facility] ([facility]) 2021-03-12 20:23:00 Josy Syed [facility] POCT GLUCOSE (AUTOMATED) 2021-03-12 19:28:00 Josy Syed [facility] IR IVC FILTER INSERTION 2021-03-12 18:43:35 Alvaro Shields [facility] POCT GLUCOSE (AUTOMATED) 2021-03-12 13:12:00 Josy Syed [facility] BASIC METABOLIC PANEL 2021-03-12 10:25:00 Harrison [facility] (NA, K, CL, CO2, GLUCOSE, Medica l Branch BUN, CREATININE, CA) CBC WITH DIFF 2021-03-12 10:25:00 Harrison [facility] MAGNESIUM 2021-03-12 10:25:00 Harrison [facility] ACTIVATED PARTIAL 2021-03-12 05:01:00 [facility]) 2021-03-12 01:11:00 Josy Syed [facility] POCT GLUCOSE (AUTOMATED) 2021-03-11 21:16:00 Josy Syed [facility] BASIC METABOLIC PANEL 2021-03-11 20:47:00 Harrison [facility] (NA, K, CL, CO2, GLUCOSE, Medica l Branch BUN, CREATININE, CA) ACTIVATED PARTIAL 2021-03-11 18:53:00 Cornelius [facility] US LOWER EXTREMITY VEIN 2021-03-11 17:18:10 Alvaro Shields [facility] WITH COMPRESSION Medical [place] BILATERAL (ONLY FOR RULE OUT DVT) CT ABDOMEN PELVIS W 2021-03-11 17:16:28 Alvaro Shields [facility] CONTRAST [facility] POCT GLUCOSE (AUTOMATED) 2021-03-11 16:50:00 Josy Syed [facility] POCT GLUCOSE (AUTOMATED) 2021-03-11 14:31:00 Josy Syed [facility] COVID-19 (ID NOW RAPID 2021-03-11 13:18:00 Alvaro Shields [facility] TESTING) Medical Branch LAB ONLY COVID 2021-03-11 13:18:00 Cornelius [facility] CBC WITH DIFF 2021-03-11 13:17:00 Cornelius [facility] FREE T4 2021-03-11 13:17:00 Cornelius [facility] PROTHROMBIN TIME / INR 2021-03-11 13:17:00 Alvaro Shields [facility] IRON PANEL 2021-03-11 13:17:00 Cornelius [facility] COMP. METABOLIC PANEL 2021-03-11 13:15:00 [id number] MAGNESIUM 2021-03-11 13:15:00 Cornelius, Alvaro [facility] FREE T3 2021-03-11 13:15:00 Cornelius [facility] FERRITIN SERUM 2021-03-11 13:15:00 Alvaro Shields [facility] ACTIVATED PARTIAL 2021-03-11 10:38:00 Alvaro Shields [facility] HOSPITAL ADMISSION 2021-03-11 05:01:00 Doctor Unassigned, [facility] Branch DEXA 2020-12-19 00:00:00 [facility] MRI, lumbar spine, w/o 2020-10-27 00:00:00 [facility] XR, lumbar spine 2020-10-17 00:00:00 [facility] Hypophysectomy [facility] Plan of Care Planned Activity Planned Date Details Comments Source Future Scheduled 2023-01-07 SHINGLES VACCINES ([address] [facility] Test 16:34:29 of 2) [code = SHINGLES VACCINES (1 of 2)] Future Scheduled 2023-01-07 65+ [facility]CCAL [facility] 16:34:29 VACCINE (1 - PCV) [code = 65+ PNEUMOCOCCAL VACCINE (1 - PCV)] Future Scheduled 2023-01-07 COVID-19 VACCINE (4 - Me [facility] Test 16:34:29 Booster for Moderna series) [code = COVID-19 VACCINE (4 - Booster for Moderna series)] Future Scheduled 2023-01-07 INFLUENZA VACCINE Method [facility]3] Test 16:34:29 [code = INFLUENZA VACCINE] Diagnostic Test 2022-12-06 urinalysis, dipstick [facility] Pending 00:00:00 [code = urinalysis, [facility] dipstick] Diagnostic Test 2022-12-06 culture, urine + [place] [facility] Pending 00:00:00 sensitivity [code = Hospital Clinics culture, urine + sensitivity] Future Scheduled 2022-05-17 HEPATITIS B VACCINES Met [facility] Test 10:30:12 (1 of 3 - 3-dose series) [code = HEPATITIS B VACCINES (1 of 3 - 3-dose series)] Future Scheduled 2022-05-17 SHINGLES [facility]ACCINES ([facility] 10:30:12 of 2) [code = SHINGLES VACCINES (1 of 2)] Future Scheduled 2022-05-17 65+ [facility]OCCAL [facility] Test 10:30:12 VACCINE (1 - PCV) [code = 65+ PNEUMOCOCCAL VACCINE (1 - PCV)] Future Scheduled 2022-05-17 COVID-19 VACCINE (4 - [facility] Test 10:30:12 Booster for Moderna series) [code = COVID-19 VACCINE (4 - Booster for Moderna series)] Future Scheduled 2022-05-17 INFLUENZA VACCINE [facility] Test 10:30:12 [code = INFLUENZA VACCINE] Future Scheduled 2021-05-[address] [facility] Test 00:00:00 (#1) [code = Medical Center INFLUENZA VACCINE (#1)] Future Scheduled 2020-09-[address] [facility] Test 00:00:00 (12+) [code = Medical Center DEPRESSION SCREENING (12+)] Future Scheduled 2020-09-05 FALLS RISK SCREENING [facility] Test 00:00:00 [code = FALLS RISK Medical C enter SCREENING] Future Scheduled 2020-05-[address] [facility] Test 00:00:00 (#1) [code = Medical Center INFLUENZA VACCINE (#1)] Future Scheduled 2004-07-[address] [facility] Test 00:00:00 WELLNESS (YEAR 2 or Medical Center FIRST YEAR if no IPPE) [code = MEDICARE ANNUAL WELLNESS (YEAR 2 or FIRST YEAR if no IPPE)] Future Scheduled 2004-07-[address] [facility] Test 00:00:00 WELLNESS (YEAR 2 or Medical Center FIRST YEAR if no IPPE) [code = MEDICARE ANNUAL WELLNESS (YEAR 2 or FIRST YEAR if no IPPE)] Future Scheduled 2003 PNEUMOCOCCAL 65+ YRS [facility] Test 00:00:00 (1 of 1 - Medical Center [id number] PCV13) [code = PNEUMOCOCCAL 65+ YRS (1 of 1 - [id number] PCV13)] Future Scheduled 2003 PNEUMOCOCCAL 65+ YRS [facility] Test 00:00:00 (1 of 1 - Medical Center [id number] PCV13) [code = PNEUMOCOCCAL 65+ YRS (1 of 1 - [id number] PCV13)] Future Scheduled 1988 SHINGLES VACCINES ([address] [facility] Test 00:00:00 of 2) [code = Medical Center SHINGLES VACCINES (1 of 2)] Future Scheduled 1957 DTAP/TDAP/TD VACCINES [facility] Test 00:00:00 (1 - Tdap) [code = Medical C enter DTAP/TDAP/TD VACCINES (1 - Tdap)] Future Scheduled 1950 COVID-19 VACCINE (1) [facility] Test 00:00:00 [code = COVID-[address] VACCINE (1)] Encounters Start End Encounter Admission Attending Care Care Encounter Source Date/Time Date/Time Type Type Clinicians Facility Department ID 2023-01-19 Outpatient [facility] [id number] Common 09:13:00 [id number] [facility] 2022-10-14 Outpatient [facility] [id number] [place] 09:18:02 [id number] [facility] 2022-10-06 Outpatient [facility] [id number] [place] 14:35:41 [id number] [facility] 2022-10-01 [facility]patient [facility] [id number] [facility] 15:41:42 AVIS [id number] [place] 2022-10-01 Outpatient 3 [id number] ENCPL CRD [id number] [facility] 12:55:40 0127 [facility] [place] 2022-09-30 Outpatient 3 COLLEEN BAKER [facility] [id number] [facility] 13:27:29 AVIS [id number] [facility] [place] 2022-09-30 Outpatient 3 [id number] ENCPL REF [id number] [facility] 06:52:54 0126 [facility] [place] 2022-09-29 Outpatient 3 [id number] ENCPL REF [id number] [facility] 15:07:23 0125 [facility] [place] 2022-09-27 Outpatient [facility] [id number] [place] 12:32:54 [id number] [facility] 2022-06-04 Outpatient [facility] [id number] Common 08:13:00 [id number] [facility] 2022-05-31 Outpatient [facility] [id number] Common 11:13:01 [facility] 2022-05-24 [facility] [id number] Common 11:47:00 [facility] 2021-10-05 Inpatient GAETANO AguayoCL OUTD [id number] [facility] 11:30:00 Kemar 50 [facility] 2021-09-30 [facility]patient [facility] [id number] Common 11:17:12 Chel 30086 [facility] 2021-09-30 Outpatient Lee[facility] [id number] Common 11:13:55 Dany [id number] [facility] 2021-03-11 Inpatient Amisha SYED [facility] [id number] Univers 02:03:00 JOSY curtis [facility] 2023-02-10 2023-02-10 [facility] [id number] 11:30:00 11:30:00 [facility] 2023-02-10 2023-02-10 Outpatient [facility] [id number] [place] 11:30:00 11:30:00 [facility] 2022-12-30 2022-12-30 Office Ramone [facility] [id number] 10:30:00 11:31:18 Visit Barry HERRING 350.1.13.58 [facility] 9.2.7.2.686 [id number] 1 2022-12-30 2022-12-30 Outpatient [facility] [id number] [place] 10:30:00 10:30:00 Health 2022-12-29 2022-12-29 Outpatient [facility] [id number] [place] 00:00:00 00:00:00 426 [facility] 2022-12-06 2022-12-06 Dany [facility] [place] 00:00:00 00:00:00 [facility] DO: [address] [facility] [address] [place], [address] LEEANNA , Ph. [phone] 2022-12-02 2022-12-02 Outpatient [facility] [id number] [place] 11:15:00 11:15:00 Health 2022-12-02 2022-12-02 Office DAGOBERTO Pack [id number] [id number] [place] 10:30:00 11:13:[address] 350.1.13.58 Health 9.2.7.2.686 [id number] 1 2022-12-02 2022-12-02 Outpatient [facility] [id number] [place] 10:30:00 10:30:00 Health 2022-11-23 2022-11-[address] [facility] [place] 00:00:00 00:00:00 [facility] DO: [address] Hospit a [facility] [address], [place], [place] CL[place], [address] LEEANNA , Ph. 2022-11-11 2022-11-11 Outpatient [facility] [id number] [place] 00:00:00 00:00:00 321 Commun i ty [facility] 2022-11-11 2022-11-11 Outpatient [facility] [id number] [place] 00:00:00 00:00:00 323 Commun i ty [facility]ospita [facility] Clinics 2022-11-11 2022-11-11 Outpatient [facility] [id number] [place] 00:00:00 00:00:00 403 Commun i ty [facility] Clinics 2022-11-04 2022-11-04 Office DAGOBERTO Pack [id number] 1.2.840.114 [id number] [place] 10:15:00 10:40:[address] 350.1.13.58 Health 9.2.7.2.686 [id number] 1 2022-11-04 2022-11-04 Outpatient [facility] [id number] [place] 10:15:00 10:15:00 Health 2022-10-26 2022-10-26 Outpatient [facility] [id number] [place] 00:00:00 00:00:00 221 Commun i ty [facility]osp[facility] Clinics 2022-10-21 2022-10-21 Office DAGOBERTO [place] 6414 [id number] [id number] [place] 10:00:00 11:05:[address] 350.1.13.58 Health 9.2.7.2.686 [id number] 1 2022-10-21 2022-10-21 Outpatient [facility] [id number] [place] 10:00:00 10:00:00 Health 2022-10-07 2022-10-21 Inpatient COLLEEN MUNOZ [facility] [id number] [facility] 21:37:00 09:00:00 AVIS [id number] [facility] [place] 2022-10-14 2022-10-14 Office DAGOBERTO [place] [id number] 09:30:00 09:58:[address] 350.1.13.58 Health 9.2.7.2.686 [id number] 1 2022-09-23 2022-10-05 Inpatient Roz AMARO [facility] MED [id number] [facility] 04:10:00 16:50:00 SHIFA 2022-09-24 2022-09-24 Outpatient [facility] [id number] [place] 00:00:00 00:00:00 120 Commun i ty [facility]osp[facility] Clinics 2022-09-22 2022-09-22 Outpatient ITZ [facility] BUSTER [id number] [facility] 00:00:00 23:59:00 ALANNA 2022-09-14 2022-09-14 Outpatient [facility] [id number] [place] 00:00:00 00:00:00 110 Commun i ty Hospita [facility] Clinics 2022-09-14 2022-09-14 Outpatient [facility] [id number] [place] 00:00:00 00:00:00 112 Commun i ty Hospita l Clinics 2022-09-14 2022-09-14 Outpatient ERROMAN_R [facility] [id number] [place] 00:00:00 00:00:00 113 Commun i ty Hospita l Clinics 2022-09-14 2022-09-14 Dany [facility] [place] 10 [place] 00:00:00 00:00:00 [facility] uni [facility] DO: [address] [facility] Hospit a [facility] l [address], HOSPITAL Clinic [place], [place] CL[place]IC, [address] LEEANNA , Ph. 2022-05-17 2022-05-17 [facility] [id number] [place] 00:00:00 00:00:[address] 2022-04-15 2022-04-15 Travel 1.2.840.1 1.2.411.010 [id number] Methodi 00:00:00 00:00:[address] 3.430.2.7 0.2.7.3.698 Ho spita .3.202605 084.8 l .8 2022-04-15 2022-04-15 Travel 1.2.840.1 1.2.384.976 [id number] [facility]i 00:00:00 00:00:[address] 3.430.2.7 0.2.7.3.698 Ho spita .3.999387 084.8 l .8 2022-04-12 2022-04-12 Outpatient LEEANNA_R [facility] 98 [place] 00:00:00 00:00:00 808 Commun i ty Hospita l Clinics 2022-04-07 2022-04-07 Travel 1.2.840.1 1.2.800.193 [id number] Methodi 00:00:00 00:00:[address] 3.430.2.7 0.2.7.3.698 Ho spita .3.929525 084.8 l .8 2022-04-07 2022-04-07 Travel 1.2.840.1 1.2.704.014 [id number] Methodi 00:00:00 00:00:[address] 3.430.2.7 0.2.7.3.698 Ho spita .3.679171 084.8 l .8 2022-02-16 2022-02-16 Outpatient [facility] [id number] [place] 02:37:00 02:37:00 614 Commun i ty Hospita l [facility] 2022-02-16 2022-02-16 Dany [facility] [place] 00:00:00 00:00:00 [facility] DO: [address] H[address] a [facility] [address], HOSPITAL Clinic s [place], [facility], [address] LEEANNA , Ph. 2022-02-16 2022-02-16 Outpatient Leeanna [facility] [id number] 00:00:00 00:00:00 Dany [id number] Juanpablo [id number] 2021-12-30 2021-12-30 Orders Doctor MEYERS 1.2.840.114 [id number] Univers 00:00:00 00:00:00 Only Unassigned, TAMARA 350.1.13.10 [facility] [place] [facility] 4.2.7.2.686 Dominic as [id number] [facility] 009 Branch 2021-11-27 2021-11-27 Outpatient [facility] [id number] - [place] 02:40:00 02:40:00 325 Commun i ty Hospita l Clinics 2021-11-17 2021-11-17 Outpatient ERCHACHOON_R [facility] [id number] - [place] 04:12:00 04:12:00 315 Commun i ty Hospita l Clinics 2021-11-17 2021-11-17 Dany [facility] [place] 00:00:00 00:00:00 [facility] DO: [address] Hospit a [facility], [facility], [address] LEEANNA , Ph. 2021-11-17 2021-11-17 Outpatient Leeanna [facility] [id number] 00:00:00 00:00:00 Dany [id number]-a Juanpablo [id number] 2021-11-10 2021-11-10 Outpatient [facility] [id number] [place] 12:26:00 12:26:00 308 Commun i ty Hospita [facility] 2021-11-10 2021-11-10 Dany [facility] [place] 00:00:00 00:00:00 [facility] DO: [address] Hospit a [facility], [place], [place] CL[place]IC, [address] LEEANNA , Ph. 2021-11-10 2021-11-10 Outpatient Leeanna [facility] [id number] 00:00:00 00:00:00 Dany [id number] Juanpablo [id number] 2021-11-09 2021-11-09 Outpatient [facility] [id number] [place] 12:10:00 12:10:00 307 Commun i ty Hospita l Clinics 2021-11-09 2021-11-09 Outpatient Leeanna [facility] [id number] 00:00:00 00:00:00 Dany [id number] Juanpablo [id number] 2021-11-09 2021-11-09 Outpatient Leeanna [facility] [id number] 00:00:00 00:00:00 Dany [id number] Juanpablo [id number] 2021-11-09 2021-11-09 Outpatient Leeanna [facility] [id number] 00:00:00 00:00:00 Dany [id number]-[id number] Juanpablo [id number] 2021-11-09 2021-11-09 [facility] [place] [facility] [place] 00:00:00 00:00:00 [facility] DO: [address] Hospit a [facility], [place], [place] CL[place], [address] LEEANNA , Ph. 2021-11-06 2021-11-06 Outpatient [facility] [id number] [place] 12:37:00 12:37:00 304 Commun i ty Hospita l [facility] 2021-11-06 2021-11-06 Outpatient Leeanna [facility] [id number] 00:00:00 00:00:00 Dany [id number] Juanpablo [id number] 2021-11-06 2021-11-06 Dany [facility] [place] 00:00:00 00:00:00 [facility] DO: [address] Hospit a [facility], [place], [place], [address] LEEANNA , Ph. [phone] 2021-11-05 2021-11-05 Outpatient [facility] [id number] [place] 03:35:00 03:35:00 303 Commun i ty Hospita l Clinics 2021-11-05 2021-11-05 Outpatient Leeanna [facility] [id number] 00:00:00 00:00:00 Dany [id number] Juanpablo [id number] 2021-11-05 2021-11-05 Dany [facility] [place] 00:00:00 00:00:00 General acute hospital Hospital - ty DO: [address] [facility] [place] [place] [place], [address] LEEANNA , Ph. 2021-11-03 2021-11-03 Outpatient [facility] [id number] [place] 12:59:00 12:59:00 301 Commun i ty Hospita l [facility] 2021-11-03 2021-11-03 Dany [facility] [place] 00:00:00 00:00:00 General acute hospital Hospital - ty DO: [address] [facility] [place] [place], [address] LEEANNA , Ph. [phone] 2021-11-03 2021-11-03 Outpatient Leeanna [facility] [id number] 00:00:00 00:00:00 Dany [id number] Juanpablo [id number] 2021-11-02 2021-11-02 Outpatient [facility] [id number] - [place] 03:40:00 03:40:00 228 Commun i ty Hospita l [facility] 2021-11-02 2021-11-02 Dany [facility] [place] 00:00:00 00:00:00 [facility], Hospital - ty DO: [address] Hospit a [facility], [place], [place], [address] LEEANNA , Ph. 2021-11-02 2021-11-02 Outpatient Leeanna [facility] [id number] 00:00:00 00:00:00 Dany [id number] Juanpablo [id number] 2021-10-27 2021-10-27 Outpatient [facility] [id number] - [place] 04:29:00 04:29:00 222 Commun i ty Hospita l Clinics 2021-10-27 2021-10-27 Dany [facility] [place] 00:00:00 00:00:00 [facility] DO: [address] Hospit a [facility], [place], [address] LEEANNA , Ph. [phone] 2021-10-27 2021-10-27 Outpatient Leeanna [facility] [id number] 00:00:00 00:00:00 Dany [id number] Juanpablo [id number] 2021-10-01 2021-10-01 Outpatient [facility] [id number] - [place] 06:53:00 06:53:00 127 Commun i ty Hospita l [facility] 2021-10-01 2021-10-01 Dany [facility] [place] 00:00:00 00:00:00 [facility] DO: [address] Hospit a [facility], [place], [address] LEEANNA , Ph. 2021-10-01 2021-10-01 Outpatient Leeanna [facility] [id number] 00:00:00 00:00:00 Dany [id number] Juanpablo [id number] 2021-09-01 2021-09-01 Outpatient [facility] [id number] [place] 10:43:00 10:43:00 228 Commun i ty Hospita l Clinics 2021-09-01 2021-09-01 Dany [facility] [place] [id number] [place] 00:00:00 00:00:00 [facility] DO: [address] Hospit a [facility], [place], [place], [address] LEEANNA , Ph. 2021-09-01 2021-09-01 Outpatient Leeanna [facility] [id number] 00:00:00 00:00:00 Dany [id number] Juanpablo [id number] 2021-07-02 2021-07-02 Outpatient [facility] [id number] - [place] 10:49:00 10:49:00 028 Commun i ty Hospita l [facility] 2021-07-02 2021-07-02 Outpatient Leeanna [facility] [id number] 00:00:00 00:00:00 Dany [id number]-a Juanpablo [id number] 2021-07-02 2021-07-02 Dany [facility] [place] 00:00:00 00:00:00 [facility] DO: [address] Hospit a [facility], [facility], [address] LEEANNA , Ph. 2021-06-23 2021-06-23 Outpatient [facility] [id number] - [place] 01:20:00 01:20:00 019 [facility] 2021-05-19 2021-05-19 Outpatient ERICKSON_R [facility] [id number] - [place] 01:20:00 01:20:00 914 Commun i ty [facility] 2021-05-05 2021-05-05 Lynne Nino [id number] Univers 00:00:00 00:00:00 Management [id number] i ty of 3.104.2.7 [id number] Medica l .8 Branch 2021-04-28 2021-04-28 Hospital Jose Eduardo Valdovinos [id number] Univers 07:31:12 23:59:00 Encounter Dariusz [facility] [id number] ity of 3.104.2.7 [id number] Medica l .8 Branch 2021-04-13 2021-04-13 Outpatient ERICKSON_R [facility] [id number] [place] 11:47:00 11:47:00 809 [facility] i ty [facility] 2021-04-13 2021-04-13 Outpatient Iraheta, [facility] [id number] 00:00:00 00:00:00 Dany [id number] Juanpablo [id number] 2021-04-13 2021-04-13 Dany [facility] [place] 00:00:00 00:00:00 Juanpablo [facility] DO: [address] [facility] [place] [place] [facility], [address] LEEANNA , Ph. [phone] 2021-04-07 2021-04-07 Outpatient ERICKSON_R [facility] [id number] [place] 12:33:00 12:33:00 803 Commun i ty [facility]osp[facility] Clin[facility] 2021-04-06 2021-04-06 Outpatient ERICKSON_R [facility] [id number] [place] 04:34:00 04:34:00 802 Commun i [facility] 2021-04-06 2021-04-06 Outpatient Iraheta, [facility] [id number] 00:00:00 00:00:00 Dany [id number] Juanpablo [id number] 2021-04-06 2021-04-06 Dany [facility] [place] 00:00:00 00:00:00 [facility] DO: [address] [facility], H[facility]PITAL [facility], [address] LEEANNA , Ph. [phone] 2021-04-01 2021-04-01 Outpatient ERCHACHOON_R [facility] [id number] [place] 01:49:00 01:49:00 728 Commun i ty Hospita l [facility] 2021-03-24 2021-03-24 Orders Doctor 1.2.840.6 [id number] Univers 00:00:00 00:00:00 Only Unassigned, 19471.1.1 ity of [place] 3.104.2.7 [place] .3.834866 Medica l .8 Branch 2021-03-24 2021-03-24 Orders Doctor MIRA 1.2.840.114 [id number] 00:00:00 00:00:00 Only Unassigned, TAMARA 350.1.13.10 [place] [facility] 4.2.7.2.686 [id number] 009 2021-03-20 2021-03-20 Outpatient LEEANNA_R [facility] [id number] -[id number] [place] 10:54:00 10:54:00 716 Commun i ty Hospita [facility] 2021-03-20 2021-03-20 Outpatient Leeanna [facility] 1dead [id number]-[id number] 00:00:00 00:00:00 Dany [id number] [place] [id number] 2021-03-20 2021-03-[address] [facility] [place] 00:00:00 00:00:00 [facility] DO: [address] [facility] [place] [place] [facility] [address] LEEANNA , Ph. 2021-03-18 2021-03-18 Telephone Harrison, 1.2.840.9 [id number] Univers 00:00:00 00:00:00 Pamela 64088.1.1 ity of 3.104.2.7 [place] .3.281818 Medica l .8 Branch 2021-03-18 2021-03-18 Telephone Harrison [facility] 1.2.572.475 [id number] 00:00:00 00:00:00 Pamela PRIMARY 350.1.13.10 CARE 4.2.7.2.686 PAVILLION [id number] 2021-03-16 2021-03-16 Transition Lucero, 1.2.840.9 [id number] Univers 00:00:00 00:00:00 of Care Chelsey 50857.1.1 ity of 3.104.2.7 [place] .3.402980 Medica l .8 Branch 2021-03-16 2021-03-16 Transition Guillermina Barkershakira 1.2.840.114 [id number] 00:00:00 00:00:00 of Care Chelsey Del Angel 350.1.13.10 [place] 4.2.7.2.686 [id number] 2021-03-11 2021-03-13 [facility] 1.2.840.7 [id number] Univers 02:03:00 17:36:00 Encounter Josy 91826.1.1 it y of 3.104.2.7 [place] .3.611068 Medica l .8 Branch 2021-03-11 2021-03-13 [facility] Dacia 1.2.840.114 [id number] 02:03:00 17:36:00 Encounter Josy Tamara 350.1.13.10 [facility] 4.2.7.2.686 [id number] 100 2021-03-12 2021-03-12 Case Zach, 1.2.840.0 [id number] Univers 00:00:00 00:00:00 Management Irfan 89733.1.1 i ty of 3.104.2.7 [place] .3.239499 Medica l .8 Branch 2021-03-12 2021-03-12 Case Zach, [facility] 1.2.638.373 [id number] [id number] 00:00:00 00:00:00 Management Irfan Y HEALTH 350.1.13.10 [facility] 4.2.7.2.686 [id number] 2021-02-25 2021-02-25 Outpatient LEEANNAMikki [facility] [id number] -[id number] [place] 01:36:00 01:36:00 623 Commun i ty Hospita [facility] 2021-02-20 2021-02-20 Orders Doctor 1.2.840.5 [id number] Univers 00:00:00 00:00:00 Only Unassigned, 52012.1.1 ity of [place] 3.104.2.7 [place] .3.689006 Medica l .8 [place] 2021-02-20 2021-02-20 Orders Doctor MIRA [place].2.840.114 [id number] 00:00:00 00:00:00 Only Unassigned, TAMARA 350.1.13.10 [place] [facility] 4.2.7.2.686 [id number] [id number] 2021-01-22 2021-01-22 Outpatient ROMANMikki [facility] [id number] -[id number] [place] 01:03:00 01:03:00 520 Commun i ty [facility] 2021-01-21 2021-01-21 Orders Doctor 1.2.840.5 [id number] Univers 00:00:00 00:00:00 Only Unassigned, 91466.1.1 ity of [place] 3.104.2.7 [place] .3.597298 Medica l .8 [place] 2021-01-21 2021-01-21 Orders Doctor MIRA [place].2.840.114 [id number] 00:00:00 00:00:00 Only Unassigned, TAMARA 350.1.13.10 [place] [facility] 4.2.7.2.686 [id number] 009 2021-01-08 2021-01-08 Orders Doctor 1.2.840.3 [id number] Univers 00:00:00 00:00:00 Only Unassigned, 58535.1.1 ity of [place] 3.104.2.7 [place] .3.893863 Medica l .8 Branch 2021-01-08 2021-01-08 Orders Doctor MIRA 1.2.840.114 [id number] 00:00:00 00:00:00 Only Unassigned, TAMARA 350.1.13.10 [place] [facility] 4.2.7.2.686 [id number] [id number] 2021-01-05 2021-01-05 Transition Kadeem, 1.2.840.5 [id number] Univers 00:00:00 00:00:00 of Care Todd Bates 96445.1.1 it y of 3.104.2.7 [facility]3.407948 Medica [facility]8 [place] 2021-01-05 2021-01-05 Transition Doyle Quan 1.2.840.114 [id number] 00:00:00 00:00:00 of Care Todd Bates Bean 350.1.13.10 [place] 4.2.7.2.686 [id number] 2020-12-21 2021-01-02 [facility] [id number] [facility] 05:34:00 18:49:00 RAINE ity of [place] [facility] 2020-12-21 2021-01-02 [facility] Latoya Duff 1.2.840.1 [id number] Univers 05:34:00 18:49:00 Encounter Fabrizio Samuels 32749.1.1 ity of NelsonMatt lomas 3.104.2.7 [facility] [place] .3.696502 [place] [address] Branch 2020-12-21 2021[facility]01-02 [facility]8 40.114 [id number] 05:34:00 18:49:00 Encounter Fabrizio Samuels 350.1.13.10 Matt Nelson [facility] 4.2.7.2.686 [facility] [id number] 100 2020-12-27 2020-12-27 Anesthesia Jai Espinal 1.2.840 .7 [id number] [facility] 15:47:00 16:43:00 Event Chase Madsen 47611.1.1 it y of 3.104.2.7 [place] .3.347912 Medica l .8 Branch 2020-12-27 2020-12-27 Surgery Merwat, 1.2.840.6 [id number] Univers 14:55:00 16:17:00 Felipe 47360.1.1 ity of [place] 3.104.2.7 [place] .3.088337 Medica l .8 Branch 2020-12-27 2020-12-27 Surgery Dacia 1.2.840.114 [id number] 14:55:00 16:17:00 Tamara 350.1.13.10 Hospital 4.2.7.2.686 [id number] 2020-12-22 2020-12-22 Anesthesia Jay, 1.2.840.8 [id number] Univers 12:32:00 13:04:00 Event Bela 50998.1.1 ity of 3.104.2.7 [place] .3.976471 Medica l .8 Branch 2020-12-22 2020-12-22 Surgery Sharma, 1.2.840.3 [id number] Univers 10:40:00 11:14:00 Rio 05772.1.1 ity of 3.104.2.7 [place] .3.812418 Medica l .8 Branch 2020-12-22 2020-12-22 Surgery [facility] 1.2.524.947 [id number] [id number] 10:40:00 11:14:00 ICAL 350.1.13.10 [facility] 4.2.7.2.686 BL [id number] 2020-12-21 2020-12-21 Orders Watson, 1.2.840.1 [id number] Univers 00:00:00 00:00:00 Only Aidan 83614.1.1 ity of 3.104.2.7 [place] .3.523600 Medica l .8 Branch 2020-12-19 2020-12-19 Outpatient ERICKSON_R [facility] [id number] -[id number] [place] 11:02:00 11:02:00 416 Commun i ty Hospita l Clinics 2020-12-19 2020-12-19 Outpatient Leeanna [facility] [id number] 00:00:00 00:00:00 Dany [id number] Juanpablo [id number] 2020-12-19 2020-12-19 Dany [facility] [place] [id number] [place] 00:00:00 00:00:00 [facility] - DO: [address] Hospit a [facility], [place]PITAL [place], [place] CL[place]IC, [address] LEEANNA , Ph. 2020-12-18 2020-12-18 Outpatient ERICKSON_R [facility] [id number] -[id number] [place] 01:01:00 01:01:00 415 Commun i ty Hospita l Clinics 2020-11-17 2020-11-17 Outpatient ERICKSON_R [facility] [id number] -[id number] [place] 04:44:00 04:44:00 315 Commun i ty Hospita l Clinics 2020-11-17 2020-11-17 Dany [facility] [place] [id number] [place] 00:00:00 00:00:00 [facility] DO: [address] Hospit a [facility], [place], [place], [address] LEEANNA , Ph. 2020-11-17 2020-11-17 Outpatient Iraheta, [facility] [id number] 00:00:00 00:00:00 Dany [id number] Juanpablo [id number] 2020-11-10 2020-11-10 Outpatient ERICKSON_R [facility] [id number] [place] 11:28:00 11:28:00 308 Commun i ty Hospita l Clinics 2020-11-10 2020-11-10 Dany [facility] [place] [id number] [place] 00:00:00 00:00:00 General acute hospital ty DO: [address] Hospit a [facility], [facility], [address] LEEANNA , Ph. [phone] 2020-11-10 2020-11-10 Outpatient Leeanna, [facility] [id number] 00:00:00 00:00:00 Dany [id number]-[id number] Juanpablo [id number] 2020-10-30 2020-10-30 Outpatient ERICKSON_R [facility] [id number] -[id number] [place] 09:13:00 09:13:00 225 Commun i ty Hospita l Clinics 2020-10-27 2020-10-27 Outpatient ERICKSON_R [facility] [id number] -[id number] [place] 02:56:00 02:56:00 222 Commun i ty Hospita l Clinics 2020-10-27 2020-10-27 Dany [facility] [place] 00:00:00 00:00:00 General acute hospital ty DO: [address] [facility], [address] LEEANNA , Ph. 2020-10-27 2020-10-27 Outpatient Leeanna, [facility] [id number] 00:00:00 00:00:00 Dany [id number] Juanpablo [id number] 2020-10-27 2020-10-27 Outpatient Iraheta, [facility] [id number] 00:00:00 00:00:00 Dany [id number] Juanpablo [id number] 2020-10-21 2020-10-21 Outpatient ERICKSON_R [facility] [id number] [place] 11:44:00 11:44:00 216 Commun i ty Hospita l Clinics 2020-10-17 2020-10-17 Outpatient ERICKSON_R [facility] [id number] [place] 11:23:00 11:23:00 212 Commun i ty Hospita l Clinics 2020-10-17 2020-10-17 Outpatient Leeanna [facility] [id number] 00:00:00 00:00:00 Dany [id number] Juanpablo [id number] 2020-10-17 2020-10-17 Dany [facility] [place] 12 [place] 00:00:00 00:00:00 [facility] DO: [address] Hospit a [facility], [place], [place], [address] LEEANNA , Ph. 2020-10-13 2020-10-13 Outpatient ERCHACHOON_R [facility] [id number] [place] 11:56:00 11:56:00 208 Commun i ty Hospita l Clinics 2020-10-13 2020-10-13 Dany [facility] [place] 00:00:00 00:00:00 [facility] DO: [address] Hospit a [facility], HOSPITAL Clinic [place], [place] CLINIC, [address] LEAENNA , Ph. 2020-10-06 2020-10-06 Outpatient ERICKSON_R [facility] [id number] [place] 01:03:00 01:03:00 201 Commun i ty Hospita l Clinics 2020-09-30 2020-09-30 Outpatient ERICKSON_R [facility] [id number] [place] 02:16:00 02:16:00 126 Commun i ty Hospita l Clinics 2020-09-26 2020-09-26 Outpatient ERICKSON_R [facility] [id number] [place] 09:12:00 09:12:00 122 Commun i ty Hospita l Clinics 2020-09-23 2020-09-23 Outpatient ERICKSON_R [facility] [id number] [place] 09:29:00 09:29:00 119 Commun i ty Hospita l Clinics 2020-09-23 2020-09-23 Outpatient Leeanna [facility] [id number] 00:00:00 00:00:00 Dany [id number] Juanpablo [id number] 2020-09-23 2020-09-23 Dany [facility] [place] [id number] [place] 00:00:00 00:00:00 [facility] - ty DO: [address] Hospit a [facility], [place], [place] CL[place]IC, [address] LEEANNA , Ph. 2020-09-12 2020-09-12 Outpatient ERICKSON_R [facility] [id number] [place] 12:08:00 12:08:00 108 Commun i ty Hospita l Clinics 2020-09-11 2020-09-11 Outpatient ERICKSON_R [facility] [id number] [place] 05:56:00 05:56:00 107 Commun i ty Hospita l Clinics 2020-09-08 2020-09-08 Outpatient ERICKSON_R [facility] [id number] [place] 10:49:00 10:49:00 104 Commun i ty Hospita l Clinics 2020-09-08 2020-09-08 Outpatient Leeanna [facility] [id number] 00:00:00 00:00:00 Dany [id number] Juanpablo [id number] 2020-09-08 2020-09-08 Dany [facility] [place] [id number] [place] 00:00:00 00:00:00 [facility] - ty DO: [address] Hospit a [facility], [place], [place], [address] LEEANNA , Ph. [phone] 2020-09-01 2020-09-01 Outpatient ERICKSON_R [facility] [id number] [place] 01:03:00 01:03:00 228 [facility] Results Test Description Test Time Test Comments Results Result Comments Source Urinalysis macro (dipstick) panel - Urine 2021-11-09 10:32:0 0 Test Item Value Reference Range Interpretation Comme nts Leukocytes (test code = Leukocytes) Negative Nitrite (test code = Nitrite) negative Urobilinogen (test code = Urobilinogen) .2 Protein (test code = Protein) 30 pH (test code = pH) 6.0 Blood (test code = Blood) Negative Specific Lopez (test code = Specific Lopez) 1.020 Ketone (test code = Ketone) Negative Bilirubin (test code = Bilirubin) Small Glucose (test code = Glucose) Negative Appearance (test code = Appearance) Clear Color (test code = Color) Dark Yellow [facility] - Urine 2021-11-09 10:32:00 Test Item Value Reference Range Interpretation Comments Leukocytes (test code = Negative Leukocytes) Nitrite (test code = Nitrite) negative Urobilinogen (test code = .2 Urobilinogen) Protein (test code = Protein) 30 pH (test code = pH) 6.0 Blood (test code = Blood) Negative Specific Lopez (test code = 1.020 Specific Lopez) Ketone (test code = Ketone) Negative Bilirubin (test code = Bilirubin) Small Glucose (test code = Glucose) Negative Appearance (test code = Clear Appearance) Color (test code = Color) Dark Yellow [facility] identified in Urine by Culture 2021-10-30 00:00:00 Test Item Value Reference Range Interpretation Comments Bacteria identified in proteus mirabilis A Urine by Culture (test code = 630-4) Other Antibiotic comment [Susceptibility] (test code = 70800-8) [facility] Urine by Culture 2021-10-30 00:00:00 Test Item Value Reference Range Interpretation Comments Bacteria identified in proteus mirabilis A Urine by Culture (test code = 630-4) Other Antibiotic comment [Susceptibility] (test code = 00547-6) [facility] Urine by Culture 2021-10-30 00:00:00 Test Item Value Reference Range Interpretation Comments Bacteria identified in proteus mirabilis A Urine by Culture (test code = 630-4) Other Antibiotic comment [Susceptibility] (test code = 60870-9) [facility] in Urine by Culture 2021-10-30 00:00:00 Test Item Value Reference Range Interpretation Comments Bacteria identified in proteus mirabilis A Urine by Culture (test code = 630-4) Other Antibiotic comment [Susceptibility] (test code = 15189-0) [facility] Urine by Culture 2021-10-30 00:00:00 Test Item Value Reference Range Interpretation Comments Bacteria identified in proteus mirabilis A Urine by Culture (test code = 630-4) Other Antibiotic comment [Susceptibility] (test code = 31439-4) [facility] Urine by Culture 2021-10-30 00:00:00 Test Item Value Reference Range Interpretation Comments Bacteria identified in proteus mirabilis A Urine by Culture (test code = 630-4) Other Antibiotic comment [Susceptibility] (test code = 99950-3) [facility] Urine by Culture 2021-10-30 00:00:00 Test Item Value Reference Range Interpretation Comments Bacteria identified in proteus mirabilis A Urine by Culture (test code = 630-4) Other Antibiotic comment [Susceptibility] (test code = 74112-4) [facility] Urine by Culture 2021-10-30 00:00:00 Test Item Value Reference Range Interpretation Comments Bacteria identified in proteus mirabilis A Urine by Culture (test code = 630-4) Other Antibiotic comment [Susceptibility] (test code = 77137-1) [facility] in Urine by Culture 2021-10-30 00:00:00 Test Item Value Reference Range Interpretation Comments Bacteria identified in proteus mirabilis A Urine by Culture (test code = 630-4) Other Antibiotic comment [Susceptibility] (test code = 31228-5) [facility] macro (dipstick) panel - Urine 2021-10-27 15:11:00 Test Item Value Reference Range Interpretation Comments Leukocytes (test code = Trace Leukocytes) Nitrite (test code = Nitrite) negative Urobilinogen (test code = .2 Urobilinogen) Protein (test code = Protein) 100 pH (test code = pH) 8.5 Blood (test code = Blood) Negative Specific Lopez (test code = 1.000 Specific Lopez) Ketone (test code = Ketone) Negative Bilirubin (test code = Bilirubin) Small Glucose (test code = Glucose) Negative Appearance (test code = Cloudy Appearance) Color (test code = Color) Dark Yellow [facility] (dipstick) panel - Urine 2021-10-27 15:11:00 Test Item Value Reference Range Interpretation Comments Leukocytes (test code = Trace Leukocytes) Nitrite (test code = Nitrite) negative Urobilinogen (test code = .2 Urobilinogen) Protein (test code = Protein) 100 pH (test code = pH) 8.5 Blood (test code = Blood) Negative Specific Lopez (test code = 1.000 Specific Lopez) Ketone (test code = Ketone) Negative Bilirubin (test code = Bilirubin) Small Glucose (test code = Glucose) Negative Appearance (test code = Cloudy Appearance) Color (test code = Color) Dark Yellow [facility] macro (dipstick) panel - Urine 2021-10-27 15:11:00 Test Item Value Reference Range Interpretation Comments Leukocytes (test code = Trace Leukocytes) Nitrite (test code = Nitrite) negative Urobilinogen (test code = .2 Urobilinogen) Protein (test code = Protein) 100 pH (test code = pH) 8.5 Blood (test code = Blood) Negative Specific Lopez (test code = 1.000 Specific Lopez) Ketone (test code = Ketone) Negative Bilirubin (test code = Bilirubin) Small Glucose (test code = Glucose) Negative Appearance (test code = Cloudy Appearance) Color (test code = Color) Dark Yellow [facility] (dipstick) panel - Urine 2021-10-27 15:11:00 Test Item Value Reference Range Interpretation Comments Leukocytes (test code = Trace Leukocytes) Nitrite (test code = Nitrite) negative Urobilinogen (test code = .2 Urobilinogen) Protein (test code = Protein) 100 pH (test code = pH) 8.5 Blood (test code = Blood) Negative Specific Lopez (test code = 1.000 Specific Lopez) Ketone (test code = Ketone) Negative Bilirubin (test code = Bilirubin) Small Glucose (test code = Glucose) Negative Appearance (test code = Cloudy Appearance) Color (test code = Color) Dark Yellow [facility] macro (dipstick) panel - Urine 2021-10-27 15:11:00 Test Item Value Reference Range Interpretation Comments Leukocytes (test code = Trace Leukocytes) Nitrite (test code = Nitrite) negative Urobilinogen (test code = .2 Urobilinogen) Protein (test code = Protein) 100 pH (test code = pH) 8.5 Blood (test code = Blood) Negative Specific Lopez (test code = 1.000 Specific Lopez) Ketone (test code = Ketone) Negative Bilirubin (test code = Bilirubin) Small Glucose (test code = Glucose) Negative Appearance (test code = Cloudy Appearance) Color (test code = Color) Dark Yellow [facility] macro (dipstick) panel - Urine 2021-10-27 15:11:00 Test Item Value Reference Range Interpretation Comments Leukocytes (test code = Trace Leukocytes) Nitrite (test code = Nitrite) negative Urobilinogen (test code = .2 Urobilinogen) Protein (test code = Protein) 100 pH (test code = pH) 8.5 Blood (test code = Blood) Negative Specific Lopez (test code = 1.000 Specific Lopez) Ketone (test code = Ketone) Negative Bilirubin (test code = Bilirubin) Small Glucose (test code = Glucose) Negative Appearance (test code = Cloudy Appearance) Color (test code = Color) Dark Yellow [facility] macro (dipstick) panel - Urine 2021-10-27 15:11:00 Test Item Value Reference Range Interpretation Comments Leukocytes (test code = Trace Leukocytes) Nitrite (test code = Nitrite) negative Urobilinogen (test code = .2 Urobilinogen) Protein (test code = Protein) 100 pH (test code = pH) 8.5 Blood (test code = Blood) Negative Specific Lopez (test code = 1.000 Specific Lopez) Ketone (test code = Ketone) Negative Bilirubin (test code = Bilirubin) Small Glucose (test code = Glucose) Negative Appearance (test code = Cloudy Appearance) Color (test code = Color) Dark Yellow [facility] macro (dipstick) panel - Urine 2021-10-27 15:11:00 Test Item Value Reference Range Interpretation Comments Leukocytes (test code = Trace Leukocytes) Nitrite (test code = Nitrite) negative Urobilinogen (test code = .2 Urobilinogen) Protein (test code = Protein) 100 pH (test code = pH) 8.5 Blood (test code = Blood) Negative Specific Lopez (test code = 1.000 Specific Lopez) Ketone (test code = Ketone) Negative Bilirubin (test code = Bilirubin) Small Glucose (test code = Glucose) Negative Appearance (test code = Cloudy Appearance) Color (test code = Color) Dark Yellow [facility] macro (dipstick) panel - Urine 2021-10-27 15:11:00 Test Item Value Reference Range Interpretation Comments Leukocytes (test code = Trace Leukocytes) Nitrite (test code = Nitrite) negative Urobilinogen (test code = .2 Urobilinogen) Protein (test code = Protein) 100 pH (test code = pH) 8.5 Blood (test code = Blood) Negative Specific Lopez (test code = 1.000 Specific Lopez) Ketone (test code = Ketone) Negative Bilirubin (test code = Bilirubin) Small Glucose (test code = Glucose) Negative Appearance (test code = Cloudy Appearance) Color (test code = Color) Dark Yellow [facility] identified in Urine by Culture 2021-10-05 00:00:00 Test Item Value Reference Range Interpretation Comments Bacteria identified in Urine escherichia coli A by Culture (test code = 630-4) Other Antibiotic comment [Susceptibility] (test code = 81578-7) [facility] macro (dipstick) panel - Urine 2021-10-01 17:52:00 Test Item Value Reference Range Interpretation Comments Leukocytes (test code = Moderate Leukocytes) Nitrite (test code = Nitrite) negative Urobilinogen (test code = .2 Urobilinogen) Protein (test code = Protein) 30 pH (test code = pH) 6.0 Blood (test code = Blood) Negative Specific Lopez (test code = 1.020 Specific Lopez) Ketone (test code = Ketone) Small Bilirubin (test code = Bilirubin) Negative Glucose (test code = Glucose) Negative Appearance (test code = Cloudy Appearance) Color (test code = Color) Dark Yellow [facility] (AUTOMATED)2021-03-13 16:52:34 Test Item Value Reference Range Interpretation Comments POCT GLU (test code = 4273947622) 152 mg/dL 70-110 H Lab Interpretation (test code = Abnormal 35294-5) [facility] METABOLIC PANEL (NA, K, CL, CO2, GLUCOSE, BUN, CREATININE, CA)2021-03-13 12:03:23 Test Item Value Reference Range Interpretation Comments NA (test code = 139 mmol/L 135-145 3031015791) K (test code = 3.5 mmol/L 3.5-5.0 2207734087) CL (test code = 112 mmol/L 98-108 H 2732949494) CO2 TOTAL (test code = 27 mmol/L 23-31 1411928118) AGAP (test code = <1 2-16 L 3738416254) BUN (test code = 22 mg/dL 7-23 0233341849) GLUCOSE (test code = 125 mg/dL 70-110 H 8970380163) CREATININE (test code = 0.64 mg/dL 0.50-1.04 4474093252) CALCIUM (test code = 7.9 mg/dL 8.6-10.6 L 7433038093) eGFR (test code = mL/min/1.73m2 7966154477) INDRA (test code = INDRA) Association of [...] tests). Lab Interpretation Abnormal (test code = 22638-7) [facility] WITHOUT [id number] 11:39:33 Test Item Value Reference Range Interpretation Comments WBC (test code = 6690-2) See_Comment L [A utomated message] The system [employer] generated this result transmit komal reference range : 4.30 - 11.10 10*3/?L. The reference range was not used to interpret this result as normal/abnormal . RBC (test code = 789-8) See_Comment L [Au tomated message] The system [employer] generated this result transmit komal reference range [...] See_Comment L [Au tomated message] The system [employer] generated this result transmit komal reference range : 166 - 358 10*3/?L. The reference range was not used to interpret this result as normal/abnormal . MPV (test code = 11.1 fL 9.5-12.9 73231-0) RDW-CV (test code = 16.7 % 12.0-15.5 H 788-0) RDW-SD (test code = 56.3 fL 39.0-49.9 H 23690-0) NRBC x10^3 (test code = <0.01 See_Comment [Au tomated message] [id number]) The system whic h generated this result transmit komal reference range : 10*3/?L. The reference range was not used to interpret this result as normal/abnormal . NRBC/100 WBC (test code See_Comment [Au tomated message] = 3101849304) The system i ch generated this result transmit komal reference range : 0.0 - 10.0 /100 WBC s. The reference r ming was not used to interpret this result as normal/abnormal . IPF % (test code = 9630467202) Lab Interpretation (test Abnormal code = 98230-3) [facility]MAGNESIUM2021-07-08 11:03:56 Test Item Value Reference Range Interpretation Comments MAGNESIUM (test code = 1596449437) 2.6 mg/dL 1.7-2.4 H Lab Interpretation (test code = Abnormal 32752-9) [facility] WITH [id number] 10:36:35 Test Item Value Reference Range Interpretation [...] (test code = 56.6 fL 39.0-49.9 H 04689-1) RDW-CV (test code = 16.4 % 12.0-15.5 H 788-0) PLT (test code = See_Comment L [Automated 777-3) message] The sy stem which generated this result transmitted reference range : 166 - 358 10*3/ ?L. The reference r ming was not used to interpret this result as normal/abnormal . MPV (test code = 11.6 fL 9.5-12.9 96225-6) NRBC/100 WBC (test See_Comment [Automat ed code = 9016754787) message] The system which generated this result transmitted reference range : 0.0 - 10.0 /100 WBCs. The refer ence range was not u sed to interpret th is result as normal/abnormal . NRBC x10^3 (test code <0.01 See_Comment [Auto mated = 9729114989) message] The s ystem which generated this result transmitted reference range : 10*3/?L. The reference range was not used to interpret this result as normal/abnormal . GRAN MAT (NEUT) % 77.8 % (test code = 770-8) IMM GRAN % (test code 0.30 % = 9746695699) LYMPH % (test code = 16.7 % 736-9) MONO % (test code = 4.4 % 5905-5) EOS % (test code = 0.5 % 713-8) BASO % (test code = 0.3 % 706-2) GRAN MAT x10^3(ANC) 2.84 10*3/uL 1.88-7.09 (test code = 5127843890) IMM GRAN x10^3 (test <0.03 0.00-0.06 code = 8368260526) LYMPH x10^3 (test code 0.61 10*3/uL 1.32-3.29 L = 731-0) MONO x10^3 (test code 0.16 10*3/uL 0.33-0.92 L = 742-7) EOS x10^3 (test code = <0.03 0.03-0.39 L 711-2) BASO x10^3 (test code <0.03 0.01-0.07 = 704-7) Lab Interpretation Abnormal (test code = 83339-7) [facility] TyleraPTT (for use with Heparin Drip)2021-03-12 05:32:09 Test Item Value Reference Range Interpretation Comments APTT Patient (test code >150 See_Comment HH [Au tomated message] = 3173-2) The system [employer] generated this result transmitted ref erence range: 26 - 36 Seconds. The reference range was not used to int erpret this result as normal/abnormal . Lab Interpretation (test Abnormal code = 08147-4) [facility] TylerIRON [id number] 15:29:50 Test Item Value Reference Range Interpretation Comments IRON (test code = 3016267795) 53 ug/dL 50-160 TIBC (test code = 7707560208) 329 ug/dL 250-410 % FE SAT (test code = 1841864732) 16 % 20-50 L Lab Interpretation (test code = Abnormal 58554-1) [facility] [id number] 15:14:27 Test Item Value Reference Range Interpretation Comments FREE T4 (test code = See_Comment [Autom ated message] 7386522441) The system [employer] generated this result transmitted ref erence range: 0.78 - 2 .20 ng/dL:. The ref erence range was not u sed to interpret this result as normal/abnor mal. Lab Interpretation (test Normal code = 24691-7) [facility] TylerFERRITIN [id number] 14:53:03 Test Item Value Reference Range Interpretation Comments FERRITIN (test code = 27.3 ng/mL 11.0-264.0 5763706106) INDRA (test code = INDRA) Biotin has been reported to cause a negative bias, interpret results relative to patient's use of biotin. Lab Interpretation (test Normal code = 86733-9) [facility] [id number] 14:31:57 Test Item Value Reference Range Interpretation Comments FREE T3 (test code = 0373371295) 1.71 pg/mL 2.77-5.27 L Lab Interpretation (test code = Abnormal 18614-2) [facility] TylerCOM. METABOLIC PANEL (90434)2021-03-11 14:26:43 Test Item Value Reference Range Interpretation Comments NA (test code = 141 mmol/L 135-145 2632066164) K (test code = 2.9 mmol/L 3.5-5.0 LL 5497063920) CL (test code = 106 mmol/L 98-108 3452286149) CO2 TOTAL (test code = 33 mmol/L 23-31 H 4721558325) AGAP (test code = 2-16 2064589003) BUN (test code = 14 mg/dL 7-23 9160320798) GLUCOSE (test code = 63 mg/dL 70-110 L 2228428421) CREATININE (test code = 0.53 mg/dL 0.50-1.04 1393351488) TOTAL BILI (test code = 0.5 mg/dL 0.1-1.9 3525936060) CALCIUM (test code = 7.9 mg/dL 8.6-10.6 L 5087401927) T PROTEIN (test code = 5.8 g/dL 6.3-8.2 L 3719238041) ALBUMIN (test code = 2.9 g/dL 3.5-5.0 L 8576598554) ALK PHOS (test code = 33 U/L 34-122 L 6946187009) ALTv (test code = 8 U/L 5-35 1742-6) AST(SGOT) (test code = 26 U/L 13-40 9691375572) eGFR (test code = mL/min/1.73m2 6788063061) INDRA (test code = INDRA) Association of [...] tests). Lab Interpretation Abnormal (test code = 43938-2) [facility] TylerPROTHROMBIN TIME / [id number] 13:40:32 Test Item Value Reference Range Interpretation Comments PROTIME PATIENT (test See_Comment H [Auto mated message] code = 5964-2) The system [employer] generated this result transmitted ref erence range: 10.1 - 1 2.6 Seconds. The reference range was not used to int erpret this result as normal/abnormal . INR (test code = 6301-6) Nor mal INR <1.1; Warfarin Therap eutic range 2.0 to 3. 0 or 2.5 to 3.5, dep ending upon the indica tions. Lab Interpretation (test Abnormal code = 81896-4) [facility] TylerUrinalysis macro (dipstick) panel - Urine 2020-10-17 10:17:00 Test Item Value Reference Range Interpretation Comments Leukocytes (test code = Leukocytes) Negative Nitrite (test code = Nitrite) negative Urobilinogen (test code = .2 Urobilinogen) Protein (test code = Protein) Trace pH (test code = pH) 8.0 Blood (test code = Blood) Negative Specific Lopez (test code = 1.010 Specific Lopez) Ketone (test code = Ketone) Negative Bilirubin (test code = Bilirubin) Negative Glucose (test code = Glucose) Negative [facility] - Urine 2020-10-17 10:17:00 Test Item Value Reference Range Interpretation Comments Leukocytes (test code = Leukocytes) Negative Nitrite (test code = Nitrite) negative Urobilinogen (test code = .2 Urobilinogen) Protein (test code = Protein) Trace pH (test code = pH) 8.0 Blood (test code = Blood) Negative Specific Lopez (test code = 1.010 Specific Lopez) Ketone (test code = Ketone) Negative Bilirubin (test code = Bilirubin) Negative Glucose (test code = Glucose) Negative [facility] (dipstick) panel - Urine 2020-10-17 10:17:00 Test Item Value Reference Range Interpretation Comments Leukocytes (test code = Leukocytes) Negative Nitrite (test code = Nitrite) negative Urobilinogen (test code = .2 Urobilinogen) Protein (test code = Protein) Trace pH (test code = pH) 8.0 Blood (test code = Blood) Negative Specific Lopez (test code = 1.010 Specific Lopez) Ketone (test code = Ketone) Negative Bilirubin (test code = Bilirubin) Negative Glucose (test code = Glucose) Negative [facility] macro (dipstick) panel - Urine 2020-10-13 10:40:00 Test Item Value Reference Range Interpretation Comments Leukocytes (test code = Leukocytes) Negative Nitrite (test code = Nitrite) negative Urobilinogen (test code = 1 Urobilinogen) Protein (test code = Protein) 30 pH (test code = pH) 7.0 Blood (test code = Blood) Negative Specific Lopez (test code = 1.010 Specific Lopez) Ketone (test code = Ketone) Negative Bilirubin (test code = Bilirubin) Negative Glucose (test code = Glucose) Negative Appearance (test code = Appearance) Clear Color (test code = Color) Yellow [facility] macro (dipstick) panel - Urine 2020-10-13 10:40:00 Test Item Value Reference Range Interpretation Comments Leukocytes (test code = Leukocytes) Negative Nitrite (test code = Nitrite) negative Urobilinogen (test code = 1 Urobilinogen) Protein (test code = Protein) 30 pH (test code = pH) 7.0 Blood (test code = Blood) Negative Specific Lopez (test code = 1.010 Specific Lopez) Ketone (test code = Ketone) Negative Bilirubin (test code = Bilirubin) Negative Glucose (test code = Glucose) Negative Appearance (test code = Appearance) Clear Color (test code = Color) Yellow [facility] (dipstick) panel - Urine 2020-10-13 10:40:00 Test Item Value Reference Range Interpretation Comments Leukocytes (test code = Leukocytes) Negative Nitrite (test code = Nitrite) negative Urobilinogen (test code = 1 Urobilinogen) Protein (test code = Protein) 30 pH (test code = pH) 7.0 Blood (test code = Blood) Negative Specific Lopez (test code = 1.010 Specific Lopez) Ketone (test code = Ketone) Negative Bilirubin (test code = Bilirubin) Negative Glucose (test code = Glucose) Negative Appearance (test code = Appearance) Clear Color (test code = Color) Yellow [facility] macro (dipstick) panel - Urine 2020-10-13 10:40:00 Test Item Value Reference Range Interpretation Comments Leukocytes (test code = Leukocytes) Negative Nitrite (test code = Nitrite) negative Urobilinogen (test code = 1 Urobilinogen) Protein (test code = Protein) 30 pH (test code = pH) 7.0 Blood (test code = Blood) Negative Specific Lopez (test code = 1.010 Specific Lopez) Ketone (test code = Ketone) Negative Bilirubin (test code = Bilirubin) Negative Glucose (test code = Glucose) Negative Appearance (test code = Appearance) Clear Color (test code = Color) Yellow [facility]ressSARS-CoV-2 (COVID-19) Ag [Presence] in Respiratory specimen by Rapid [id number] 08:28:00 Test Item Value Reference Range Interpretation Comments SARS CoV 2 (test code = SARS CoV 2) negative [facility]INAL[facility] W/ [id number] 14:50:00 Test Item Value Reference Range Interpretation [...] 1584) SOURCE(BEAKER) (test code = Urine, Voided 0455) [id number] 13:11:00 Test Item Value Reference Range Interpretation Comments LIPASE (BEAKER) (test code = 749) 45 U/L 8-78 BASIC METABOLIC [id number] 13:11:00 Test Item Value Reference Range Interpretation [...] APPLICABLE FOR DIALYSIS PATIEN TS. HEPATIC FUNCTION [id number] 13:11:00 Test Item Value Reference Range Interpretation [...] (test code = 14 U/L 6-55 347) [id number] 13:02:00 Test Item Value Reference Range Interpretation [...] mechanical heart valves.CBC W/PLT COUNT & AUTO [id number] 12:56:00 Test Item Value Reference Range Interpretation [...] PERCENT (BEAKER) (test code = 2801) TISSUE [id number] 13:06:00Surgical Pathology Report Case: [id number] Authorizing Provider: Luiz Villa Collected: 03/14/2018 1115 Ordering Location: [facility] Endoscopy Received: 03/14/2018 1351 Services Pathologist: Mara Barboza MD Specimens: A) - Polyp, Duodenum B) - Stomach, Antrum, bx C) - Biopsy,Gastric, gastric body D) - Biopsy, Esophagus, random THIS ADDENDUM IS ISSUED TO REPORT THE RESULT OF IMMUNOHISTOCHEMICAL STUDY FOR HELICOBACTER PYLORI OM SPECIMEN B: - NEGATIVE CPT CODE: [id number] electronically signed by Mara Barboza MD on 03/20/2018 at 1:06 PMA. DUODENUM, ENDOSCOPICPOLYPECTOMY: - COMPATIBLE WITH PEPTIC DUODENITIS - NO [...] - NO HELICOBACTER PYLORI-LIKE ORGANISMS SEEN ON WARTHIN- STARRY STAIN - NO INTESTINAL METAPLASIA, DYSPLASIA OR MALIGNANCY NOTED D. ESOPHAGUS, RANDOM,ENDOSCOPIC BIOPSY - MULTIPLE FRAGMENTS OF SQUAMOUS MUCOSA WITH REACTIVE CHANGES - NO FEATURES OF REFLUX ESOPHAGITIS ARE SEEN - NO FEATURES OF EOSINOPHILIC ESOPHAGITIS NOTED - NO COLUMNAR MUCOSA PRESENT - NO DYSPLASIA OR MALIGNANCY SEEN Signing Pathologist Direct Phone Line: [phone] signed by Mara Barboza MD on 03/17/2018 at 10:35 [id number] X 4; [id number] X 2A. Polyp, duodenum. B. Stomach antrum. [...] body", are is a 0.4 x 0.2 x0.2 cm aggregate of brown-chavez irregular shaped fragment of soft tissue. The specimen is submitted intoto in one cassette (C1).Part D. Received in formalin labeled "biopsy, esophagus", with descriptionof "random", is a 0.5 x 0.2 x 0.2 cm aggregate of brown-chavez to white irregular shaped fragment of soft tissue that is submitted in toto in one cassette (D1). MH/ewThe following special studies were performed on this case and the interpretation is incorporated in the diagnostic report above:RHONDATHIN-STARRY X 2POCT-GLUCOSE [id number] 12:41:00 Test Item Value Reference Range Interpretation Comments POC-GLUCOSE METER 75 mg/dL 70-110 TESTED AT [facility] 6720 (BEAKER) (test code = [facility] [address] 1538) BLOOD [id number] 06:00:00 Test Item Value Reference Range Interpretation Comments CULTURE (BEAKER) (test No growth in 5 days code = 1095) BLOOD [id number] 06:00:00 Test Item Value Reference Range Interpretation Comments CULTURE (BEAKER) (test No growth in 5 days code = 1095) POCT-GLUCOSE [id number] 12:32:00 Test Item Value Reference Range Interpretation Comments POC-GLUCOSE METER 217 mg/dL 70-[address] [facility] 6720 (BEAKER) (test code = [facility] 1538) [address] POCT-GLUCOSE [id number] 08:36:00 Test Item Value Reference Range Interpretation Comments POC-GLUCOSE METER 92 mg/dL 70-110 TESTED AT [place] [address] (BEAKER) (test code = [facility] [address] 1538) COMPREHENSIVE METABOLIC [id number] 04:59:00 Test Item Value Reference Range Interpretation [...] S NOT APPLICABLE FOR DIALYSIS PATIEN TS. [id number] 04:50:00 Test Item Value Reference Range Interpretation Comments MAGNESIUM (BEAKER) (test code = 1.7 mg/dL 1.6-2.6 627) PROTHROMBIN TIME/[id number] 04:35:00 Test Item Value Reference Range Interpretation [...] mechanical heart valves.CBC W/PLT COUNT & AUTO [id number] 04:24:00 Test Item Value Reference Range Interpretation [...] PERCENT (BEAKER) (test code = 2801) POCT-GLUCOSE [id number] 22:13:00 Test Item Value Reference Range Interpretation Comments POC-GLUCOSE METER 194 mg/dL 70-110 H TESTED AT [place] [address] [facility] (test code = [place] 1538) [address] POCT-GLUCOSE [id number] 18:14:00 Test Item Value Reference Range Interpretation Comments POC-GLUCOSE METER 195 mg/dL 70-110 H TESTED AT [place] [address] (BEAKER) (test code = [place] 1538) [address] POCT-GLUCOSE [id number] 12:20:00 Test Item Value Reference Range Interpretation Comments POC-GLUCOSE METER 224 mg/dL 70-[address] [facility] 6720 (BEAKER) (test code = [place] 1538) [address] [id number] 08:55:00 Test Item Value Reference Range Interpretation Comments LIPASE (BEAKER) (test code = 749) 471 U/L 8-78 H POCT-GLUCOSE [id number] 08:12:00 Test Item Value Reference Range Interpretation Comments POC-GLUCOSE METER 128 mg/dL 70-[address] [facility] 6720 (BEAKER) (test code = [place] 1538) [address] [id number] 04:12:00 Test Item Value Reference Range Interpretation Comments T3 TOTAL (BEAKER) (test code = 656) 41 ng/dL 48-159 L T3, [id number] 04:11:00 Test Item Value Reference Range Interpretation Comments T3 FREE (BEAKER) (test code = 908) 1.31 pg/mL 1.71-3.71 L COMPREHENSIVE METABOLIC [id number] 04:01:00 Test Item Value Reference Range Interpretation [...] S NOT APPLICABLE FOR DIALYSIS PATIEN TS. [id number] 03:54:00 Test Item Value Reference Range Interpretation Comments MAGNESIUM (BEAKER) (test code = 1.7 mg/dL 1.6-2.6 627) PROTHROMBIN TIME/[id number] 03:53:00 Test Item Value Reference Range Interpretation [...] mechanical heart valves.CBC W/PLT COUNT & AUTO [id number] 03:46:00 Test Item Value Reference Range Interpretation [...] PERCENT (BEAKER) (test code = 2801) POCT-GLUCOSE [id number] 22:34:00 Test Item Value Reference Range Interpretation Comments POC-GLUCOSE METER 252 mg/dL 70-[address] [facility] 6720 (BEAKER) (test code = [place] 1538) [address] [id number] 19:36:00 Test Item Value Reference Range Interpretation Comments MAGNESIUM (BEAKER) (test code = 1.6 mg/dL 1.6-2.6 627) BASIC METABOLIC [id number] 19:36:00 Test Item Value Reference Range Interpretation [...] 358) GLUCOSE RANDOM 249 mg/dL 70-105 H ([facility]) (test code = 652) CALCIUM (SRI) 8.1 mg/dL 8.4-10.2 L (test code = 697) EGFR ([facility]) (test 76 mL/min/1.73 ESTIMA KOMAL GFR IS code = 1092) sq m NOT ACCURATE CREATININE CLEARANCE IN PREDICTING GLOMERULAR FILTRATION RATE . ESTIMATED GFR I S NOT APPLICABLE FOR DIALYSIS PATIEN TS. URINE [id number] 11:51:00 Test Item Value Reference Range Interpretation Comments CULTURE ([facility]) (test code = 1095) No growth POCT-GLUCOSE [id number] 11:42:00 Test Item Value Reference Range Interpretation Comments POC-GLUCOSE METER 205 mg/dL 70-110 H TESTED AT [place] [address] ([facility]) (test code = PAMELALENNOX Mikki [facility] 1538) [address] POCT-GLUCOSE [id number] 08:08:00 Test Item Value Reference Range Interpretation Comments POC-GLUCOSE METER 119 mg/dL 70-110 H TESTED AT [place] [address] ([facility]) (test code = [facility] [place] Mikki [facility] 1538) [address] C. DIFFICILE GDH [id number] 07:40:00 Test Item Value Reference Range Interpretation Comments CDT TOXIN (test code Negative Negative = 9154166019) CDT GDH ANTIGEN Positive Negative A C. difficile present but (test code = toxin not detec komal. 1512016914) Indicates colon ization with non-toxige lizbeth strain [...] performance was done by the [facility] MicrobiologyLab prior to clinical use.POCT-GLUCOSE [id number] 06:37:00 Test Item Value Reference Range Interpretation Comments POC-GLUCOSE METER 141 mg/dL 70-110 H TESTED AT [place] [address] (BEAKER) (test code = [place] 1538) [address] COMPREHENSIVE METABOLIC [id number] 04:48:00 Test Item Value Reference Range Interpretation [...] NOT APPLICABLE FOR DIALYSIS PATIEN TS. PROTHROMBIN [id number] 04:40:00 Test Item Value Reference Range Interpretation Comments PROTIME (BEAKER) (test code = 23.8 seconds 11.7-14.7 H 759) INR (BEAKER) (test code = 370) 2.1 <=5.9 RECOMMENDED COUMADIN/WARFARIN INR THERAPY RANGESSTANDARD DOSE: 2.0 - 3.0 Includes: PROPHYLAXIS for venous thrombosis, systemic embolization; TREATMENT for venous thrombosis and/or pulmonary embolus.HIGH RISK: Target INR is 2.5-3.5 for patients with mechanical heart valves.While on warfarin.[id number] 04:29:00 Test Item Value Reference Range Interpretation Comments MAGNESIUM (BEAKER) (test code = 2.0 mg/dL 1.6-2.6 627) CBC W/PLT COUNT & AUTO [id number] 04:11:00 Test Item Value Reference Range Interpretation [...] PERCENT (BEAKER) (test code = 2801) POCT-GLUCOSE [id number] 22:19:00 Test Item Value Reference Range Interpretation Comments POC-GLUCOSE METER 266 mg/dL 70-110 H TESTED AT [place] [address] [facility] (test code = [facility] 1538) [address] [id number] 17:54:00 Test Item Value Reference Range Interpretation Comments POTASSIUM (BEAKER) (test code = 4.2 meq/L 3.5-5.1 379) [id number] 17:23:00 Test Item Value Reference Range Interpretation Comments MAGNESIUM (BEAKER) (test code = 1.7 mg/dL 1.6-2.6 627) POCT-GLUCOSE [id number] 12:41:00 Test Item Value Reference Range Interpretation Comments POC-GLUCOSE METER 111 mg/dL 70-110 H TESTED AT [place] [address] (BEAKER) (test code = [facility] 1538) [address] [id number] 12:40:00 Test Item Value Reference Range Interpretation Comments POTASSIUM (BEAKER) (test code = 3.5 meq/L 3.5-5.1 379) POCT-GLUCOSE [id number] 10:05:00 Test Item Value Reference Range Interpretation Comments POC-GLUCOSE METER 94 mg/dL 70-110 TESTED AT [place] [address] ([facility] (test code = [facility] [address] 1538) COMPREHENSIVE METABOLIC [id number] 05:47:00 Test Item Value Reference Range Interpretation [...] S NOT APPLICABLE FOR DIALYSIS PATIEN TS. [id number] 05:44:00 Test Item Value Reference Range Interpretation Comments MAGNESIUM (BEAKER) (test code = 2.0 mg/dL 1.6-2.6 627) PROTHROMBIN TIME/[id number] 05:37:00 Test Item Value Reference Range Interpretation Comments PROTIME (BEAKER) (test code = 24.0 seconds 11.7-14.7 H 759) INR (BEAKER) (test code = 370) 2.2 <=5.9 RECOMMENDED COUMADIN/WARFARIN INR THERAPY RANGESSTANDARD DOSE: 2.0 - 3.0 Includes: PROPHYLAXIS for venous thrombosis, systemic embolization; TREATMENT for venous thrombosis and/or pulmonary embolus.HIGH RISK: Target INR is 2.5-3.5 for patients with mechanical heart valves.PROTHROMBIN TIME/[id number] 05:36:00 Test Item Value Reference Range Interpretation [...] valves.While on warfarin.CBC W/PLT COUNT & AUTO [id number] 05:35:00 Test Item Value Reference Range Interpretation [...] 417) IMMATURE GRANULOCYTES-RELATIVE 1 % 0-1 PERCENT ([facility]) (test code = 2801) POCT-GLUCOSE [id number] 23:56:00 Test Item Value Reference Range Interpretation Comments POC-GLUCOSE METER 105 mg/dL 70-110 TESTED AT [place] [address] ([facility]) (test code = [facility] 1538) [address] TROPONIN [id number] 13:02:00 Test Item Value Reference Range Interpretation Comments TROPONIN I ([facility]) (test code = 0.02 ng/mL 0.00-0.03 [...] Reference Range Interpretation Comments B-TYPE NATRIURETIC PEPTIDE ([facility]) 975 pg/mL 0-100 H (test code = 700) POCT-GLUCOSE [id number] 12:18:00 Test Item Value Reference Range Interpretation Comments POC-GLUCOSE METER 175 mg/dL 70-[address] [facility] 6720 ([facility]) (test code = [facility] 1538) [address] U/S, ABDOMINAL, [id number] 10:23:00Abdomen limited area? Add comment if clarification [...] Coffey MDReport Verified Date/Time: 01/14/2018 10:23:02 Reading Location:[address] Consult Reading Room T4, [id number] 08:42:00 Test Item Value Reference Range Interpretation Comments FREE T4 (MATTHEW) (test code = 655) 0.83 ng/dL 0.70-1.48 POCT-GLUCOSE [id number] 08:37:00 Test Item Value Reference Range Interpretation Comments POC-GLUCOSE METER 161 mg/dL 70-[address] [facility] 6720 (MATTHEW) (test code = [place] 1538) [address] TSH/FREE T4 IF [id number] 08:05:00 Test Item Value Reference Range Interpretation Comments THYROID STIMULATING HORMONE 0.02 uIU/mL 0.35-4.94 L (BEAKER) (test code = 772) VITAMIN B12 AND [id number] 07:42:00 Test Item Value Reference Range Interpretation Comments VITAMIN B12 (BEAKER) (test code = 1276 pg/mL 213-816 H 774) FOLATE (BEAKER) (test code = 362) 8.8 ng/mL >=7.0 LIPID [id number] 07:14:00 Test Item Value Reference Range Interpretation Comments TRIGLYCERIDES (BEAKER) (test code = 171 mg/dL 540) CHOLESTEROL (BEAKER) (test code = 123 mg/dL 631) HDL CHOLESTEROL (BEAKER) (test code 25 mg/dL = 976) LDL CHOLESTEROL CALCULATED (BEAKER) 64 mg/dL (test code = 633) Triglyceride Reference Range: Low Risk <150 Borderline 150-199 High Risk 200- 499 Very High Risk >=500Cholesterol Reference Range: Low [...] acute neurological disease, and persistent tachyarrhythmia.URINALYSIS W/ [id number] 06:35:00 Test Item Value Reference Range Interpretation [...] 517) SOURCE(BEAKER) (test code = Urine, Taylor 4871) [id number] 06:07:00 Test Item Value Reference Range Interpretation Comments MAGNESIUM (BEAKER) (test code = 1.8 mg/dL 1.6-2.6 627) [id number] 05:32:00 Test Item Value Reference Range Interpretation Comments MAGNESIUM (BEAKER) (test code = 2.5 mg/dL 1.6-2.6 627) COMPREHENSIVE METABOLIC [id number] 05:32:00 Test Item Value Reference Range Interpretation [...] NOT APPLICABLE FOR DIALYSIS PATIEN TS. PROTHROMBIN [id number] 05:10:00 Test Item Value Reference Range Interpretation [...] mechanical heart valves.CBC W/PLT COUNT & AUTO [id number] 05:03:00 Test Item Value Reference Range Interpretation [...] 0-1 PERCENT (BEAKER) (test code = 2801) [id number] 02:52:00 Test Item Value Reference Range Interpretation Comments PROCALCITONIN (BEAKER) (test code 0.41 ng/mL <0.05 H = 3036) SEPSIS RISK (ng/mL)Low: 0.05-0.50Intermediate: 0.51-2.00High: >=2.01LACTIC ACID, VENOUS, WHOLE [id number] 02:06:00 Test Item Value Reference Range Interpretation Comments LACTATE BLOOD VENOUS 1.3 mmol/L 0.5-2.2 Specime n slightly (2) (BEAKER) (test hemolyzed code = 4742) Effective 01/07/2016: Units/Reference Range ChangeNew: 0.5-2.2 mmol/L Previous: 5- 20 mg/dLCOMPREHENSIVE METABOLIC [id number] 02:06:00 Test Item Value Reference Range Interpretation [...] S NOT APPLICABLE FOR DIALYSIS PATIEN TS. [id number] 02:04:00 Test Item Value Reference Range Interpretation Comments LIPASE (BEAKER) (test code = 749) 730 U/L 8-78 H [id number] 02:04:00 Test Item Value Reference Range Interpretation Comments AMYLASE (BEAKER) (test code = 349) 226 U/L 25-125 H PROTHROMBIN [id number] 01:45:00 Test Item Value Reference Range Interpretation Comments PROTIME (BEAKER) (test code = 23.9 seconds 11.7-14.7 H 759) INR (BEAKER) (test code = 370) 2.1 <=5.9 RECOMMENDED COUMADIN/WARFARIN INR THERAPY RANGESSTANDARD DOSE: 2.0 - 3.0 Includes: PROPHYLAXIS for venous thrombosis, systemic embolization; TREATMENT for venous thrombosis and/or pulmonary embolus.HIGH RISK: Target INR is 2.5-3.5 for patients with mechanical heart valves.[id number] 01:45:00 Test Item Value Reference Range Interpretation Comments PARTIAL THROMBOPLASTIN TIME 32.4 seconds 22.5-36.0 (BEAKER) (test code = 760) CBC W/PLT COUNT & AUTO [id number] 01:38:00 Test Item Value Reference Range Interpretation [...] % 0-1 PERCENT (BEAKER) (test code = 0453)
[2023-02-05] MEDS ORDERED: Ringers Lactate 1,000 ML IV ONE (17:03)
[2023-02-05] MEDS ORDERED: ONDANSETRON 4 MG/2 ML VIAL ONE (17:03)
[2023-02-05] MEDS ORDERED: DICYCLOMINE HCL 20 MG/2 ML AMP IM ONE (17:03)
[2023-02-05 17:18] LABS: Absolute Lymphocytes (CBC) 1.4 K/uL (0.7-4.9); Hematocrit 35.1 % (36.0-45.0); Lymphocytes % 32.3 % (15.3-44.8); MCV 94.6 fL (80-100); MPV 8.3 fL (7.6-11.3); RBC Red Blood Cell Count 3.71 M/uL (3.86-4.86)
[2023-02-05 17:33] LABS: Albumin 2.9 g/dL (3.4-5.0); Bilirubin Total 0.6 mg/dL (0.2-1.0); Potassium 3.6 mEq/L (3.5-5.1); Protein, Total 6.8 g/dL (6.4-8.2)
[2023-02-05] MEDS ORDERED: MORPHINE 4 MG/ML SYR ONE (18:10)
--- NOTE | 2023-02-05 20:42 | RAD REPORT ---
EXAM DESCRIPTION: CTAbdomen Pelvis W Contrast - 02/05/2023 8:32 pm CLINICAL HISTORY: abdominal pain COMPARISON: Abdomen Pelvis W Contrast dated 12/12/2022; Abdomen Pelvis W Contrast dated 08/07/2021; Abdomen Pelvis W Contrast dated 04/19/2021; Abdomen Pelvis W Contrast dated 04/09/2021 TECHNIQUE: CT of the abdomen and pelvis was performed. All CT scans are performed using dose optimization technique as appropriate and may include automated exposure control or mA/KV adjustment according to patient size. FINDINGS: Lower chest: Aortic valve calcifications. Coronary artery calcifications. Liver: Too small to characterize liver lesions which are likely benign. Biliary: Cholecystectomy mild extrahepatic biliary duct dilatation is likely related to the postchole cystectomy state. Stomach: No significant focal abnormality. Duodenum: No significant focal abnormality. Pancreas: No significant abnormality. Spleen: Low-density splenic lesions are most certainly benign. Adrenal: No suspicious lesions. Kidney/ureter: No hydronephrosis. No renal calculi. Retroperitoneum: No retroperitoneal adenopathy. Vascular: IVC filter. Atherosclerosis. No aneurysm. Bowel: No significant focal abnormality. Peritoneum: No ascites or free air. Laparotomy defect. Bladder: Grossly unremarkable. Reproductive: No adnexal masses. Bones: No acute fracture. L3 and L4 kyphoplasty Other: n/a IMPRESSION: No acute intra-abdominal or pelvic finding.
--- NOTE | 2023-02-05 20:47 | ER ---
Nurse's Notes [facility] Name: Emelia Payan Age: 82 yrs Sex: Female : 1940 Arrival Date: 02/05/2023 Time: 15:21 Bed 5 Private MD: Diagnosis: Vomiting;Diarrhea, unspecified Presentation: 02/05 15:40 Chief complaint: Patient states: Abd. cramping with N/V/D for 4 days. Coronavirus ll1 screen: Client denies travel out of the [place] in the last 14 days. At this time, the client does not indicate any symptoms associated with coronavirus-19. Ebola Screen: Patient denies travel to an Ebola-affected area in the 21 days before illness onset. Initial Sepsis Screen: Does the patient meet any 2 criteria? No. Patient's initial sepsis screen is negative. Does the patient have a suspected source of infection? Yes: Acute abdominal pain. Risk Assessment: Do you want to hurt yourself or someone else? Patient reports no desire to harm self or others. Onset of symptoms was February 02, 2023. 15:40 Method Of Arrival: Wheelchair ll1 15:40 Acuity: EDIS 3 ll1 Historical: - Allergies: 15:41 Bactrim; ll1 15:41 Cipro; ll1 15:41 Xarelto; ll1 15:41 Zosyn; ll1 - PMHx: 15:41 adrenal insuficiency; Anxiety; Atrial Fib; CHF; CVA; Diabetes - IDDM; DVT; ll1 Hyperlipidemia; Hypertension; Hypothyroidism; L groin blood clot; lymphedema; Pancreatitis; - PSHx: 15:41 filter; ll1 - Immunization history:: Adult Immunizations up to date. - Social history:: Smoking status: Patient denies any tobacco usage or history of. Screenin:17 [facility] ED Fall Risk Assessment (Adult) History of falling in the last 3 months, ld1 including since admission No falls in past 3 months (0 pts). Abuse screen: Denies threats or abuse. Denies injuries from another. Nutritional screening: No deficits noted. Tuberculosis screening: No symptoms or risk factors identified. Assessment: 17:17 Reassessment: See triage assessment. ld1 18:42 Reassessment: Patient appears in no apparent distress at this time. No changes from ld1 previously documented assessment. Patient and/or family updated on plan of care and expected duration. Pain level reassessed. Vital Signs: 15:40 BP 115 / 66; Pulse 83; Resp 17; Temp 98.3; Pulse Ox 97% ; Weight 71.21 kg; Height 5 ft. ll1 4 in. ; Pain 5/10; 16:17 BP 130 / 65; Pulse 77; Resp 18; Pulse Ox 100% ; ld1 16:50 BP 140 / 58; Pulse 76; Resp 18; Pulse Ox 100% on R/A; ld1 17:17 BP 140 / 58; Pulse 79; Resp 18; Pulse Ox 100% on R/A; ld1 18:03 BP 140 / 58; Pulse 78; Resp 18; Pulse Ox 100% on R/A; ld1 18:41 BP 137 / 60; Pulse 74; Resp 18; Pulse Ox 100% on R/A; ld1 15:40 Body Mass Index 26.95 (71.21 kg, 162.56 cm) ll1 15:40 Pain Scale: Adult ll1 ED Course: 15:23 Patient arrived in ED. rg4 15:27 Eonch Alston PA is PHCP. jmm 15:27 Johann Markham MD is Attending Physician. [facility] 15:41 Triage completed. ll1 15:42 Arm band placed on Patient placed in an exam room, on a stretcher. ll1 15:43 Susana Fletcher, ODILON is Primary Nurse. ld1 16:10 Cleaned of incontinence. Linen changed. ld1 17:08 Missed attempt(s): 22 gauge in right forearm. Bleeding controlled, band aid applied, jl7 catheter tip intact. 17:10 Initial lab(s) drawn, by fl, sent to lab. Inserted saline lock: 20 gauge in left wrist, jl7 using aseptic technique. Blood collected. 17:17 Patient has correct armband on for positive identification. Placed in gown. Bed in low ld1 position. Call light in reach. Side rails up X2. personnel monitor on. Pulse ox on. NIBP on. 17:17 No provider procedures requiring assistance completed. ld1 20:33 CT Abd/Pelvis - IV Contrast Only In Process Unspecified. EDMS 20:42 role handed off by Zonia Serrano RN 20:43 Primary Nurse role handed off by Susana Fletcher RN Administered Medications: 16:59 Drug: Dicyclomine IM 20 mg Route: IM; Site: left deltoid; kc6 17:18 Drug: Ondansetron IVP 4 mg Route: IVP; Site: left hand; kc6 17:18 Drug: Lactated Ringers Solution IV 1000 ml Route: IV; Rate: 250 ml/hr; Site: left hand; kc6 18:06 Drug: morphine IVP or IV 4 mg Route: IVP; Infused Over: 4 mins; Site: left hand; kc6 Medication: 17:17 VIS not applicable for this client. ld1 Outcome: 20:46 Discharge ordered by . barb 21:05 Patient left the ED. mw Signatures: Dispatcher [employer] EDMS Uzma Oneal RN RN Enoch Alston PA PA jmm Garcia, Rubi rg4 Taurus Nevarez RN RN jl7 Paolo Romero RN RN ll1 Susana Fletcher RN RN ld1 Berta Galaviz Zonia Serrano RN RN kc6
--- NOTE | 2023-02-05 20:47 | EDPHYS ---
Physician Documentation [facility] Name: Emelia Payan Age: 82 yrs Sex: Female : 1940 Arrival Date: 02/05/2023 Time: 15:21 Bed 5 Private MD: ED Physician Johann Markham HPI: 02/05 15:54 This 82 yrs old Female presents to ER via Wheelchair with complaints of jmm Vomiting/Diarrhea. 15:54 The patient presents to the emergency department with nausea, vomiting, diarrhea. jmm Onset: The symptoms/episode began/occurred gradually, 1 day(s) ago. Is an 82-year-old female with history of anxiety, atrial fibrillation, CHF, CVA, diabetes mellitus the presents emerged department with complaints of vomiting and diarrhea beginning last night.. Historical: - Allergies: 15:41 Bactrim; ll1 15:41 Cipro; ll1 15:41 Xarelto; ll1 15:41 Zosyn; ll1 - PMHx: 15:41 adrenal insuficiency; Anxiety; Atrial Fib; CHF; CVA; Diabetes - IDDM; DVT; ll1 Hyperlipidemia; Hypertension; Hypothyroidism; L groin blood clot; lymphedema; Pancreatitis; - PSHx: 15:41 filter; ll1 - Immunization history:: Adult Immunizations up to date. - Social history:: Smoking status: Patient denies any tobacco usage or history of. ROS: 15:54 Constitutional: Negative for fever, chills, and weight loss, Cardiovascular: Negative jmm for chest pain, palpitations, and edema, Respiratory: Negative for shortness of breath, cough, wheezing, and pleuritic chest pain. 15:54 Abdomen/GI: Positive for vomiting, diarrhea. 15:54 All other systems are negative. Exam: 15:54 Constitutional: This is a well developed, well nourished patient who is awake, alert, jmm and in no acute distress. Head/Face: atraumatic. Eyes: EOMI, no conjunctival erythema appreciated ENT: Moist Mucus Membranes Neck: Trachea midline, Supple Chest/axilla: Normal chest wall appearance and motion. Cardiovascular: Regular rate and rhythm. No edema appreciated Respiratory: Normal respirations, no respiratory distress appreciated 15:54 Back: Normal ROM Skin: General appearance color normal MS/ Extremity: Moves all extremities, no obvious deformities appreciated, no edema noted to the lower extremities Neuro: Awake and alert Psych: Behavior is normal, Mood is normal, Patient is cooperative and pleasant 15:54 Abdomen/GI: Inspection: obese Bowel sounds: Palpation: soft, nontender, in all quadrants. Vital Signs: 15:40 BP 115 / 66; Pulse 83; Resp 17; Temp 98.3; Pulse Ox 97% ; Weight 71.21 kg; Height 5 ft. ll1 4 in. ; Pain 5/10; 16:17 BP 130 / 65; Pulse 77; Resp 18; Pulse Ox 100% ; ld1 16:50 BP 140 / 58; Pulse 76; Resp 18; Pulse Ox 100% on R/A; ld1 17:17 BP 140 / 58; Pulse 79; Resp 18; Pulse Ox 100% on R/A; ld1 18:03 BP 140 / 58; Pulse 78; Resp 18; Pulse Ox 100% on R/A; ld1 18:41 BP 137 / 60; Pulse 74; Resp 18; Pulse Ox 100% on R/A; ld1 15:40 Body Mass Index 26.95 (71.21 kg, 162.56 cm) ll1 15:40 Pain Scale: Adult ll1 MDM: 15:54 Patient medically screened. [facility] 22:16 Differential diagnosis: Nonspecific abd pain, gastritis, pancreatitis, appendicitis, [facility] diverticulitis, viral gastroenteritis, gastroenteritis. Data reviewed: vital signs, nurses notes, lab test result(s), radiologic studies, CT scan. Consideration of Admission/Observation Escalation of care including admission/observation considered. I considered the following discharge prescriptions or medication management in the emergency department Medications were administered in the Emergency Department. See MAR. External Records Reviewed: . Counseling: I had a detailed discussion with the patient and/or guardian regarding: the historical points, exam findings, and any diagnostic results supporting the discharge/admit diagnosis, lab results, radiology results, the need for outpatient follow up, to return to the emergency department if symptoms worsen or persist or if there are any questions or concerns that arise at home. ED course: Patient states feeling much better. Is able to tolerate p.o. Advised follow with PCP and otherwise given strict return precautions. Patient understood and agrees plan of care peer. 02/05 16:02 Order name: CBC with Diff; Complete Time: 17:20 [facility] 02/05 16:02 Order name: CMP; Complete Time: 17:35 [facility] 02/05 16:02 Order name: Lipase; Complete Time: 17:35 [facility] 02/05 19:20 Order name: CT Abd/Pelvis - IV Contrast Only; Complete Time: 20:43 [facility] 02/05 16:02 Order name: IV Saline Lock; Complete Time: 17:12 [facility] 02/05 16:02 Order name: Labs collected and sent; Complete Time: 17:12 [facility] Administered Medications: 16:59 Drug: Dicyclomine IM 20 mg Route: IM; Site: left deltoid; kc6 17:18 Drug: Ondansetron IVP 4 mg Route: IVP; Site: left hand; kc6 17:18 Drug: Lactated Ringers Solution IV 1000 ml Route: IV; Rate: 250 ml/hr; Site: left hand; kc6 18:06 Drug: morphine IVP or IV 4 mg Route: IVP; Infused Over: 4 mins; Site: left hand; kc6 Disposition Summary: 02/05/23 20:46 Discharge Ordered Location: Home [facility] Condition: Stable [facility] Diagnosis - Vomiting jmm - Diarrhea, unspecified jmm Followup: [facility] - With: Private Physician - When: 1 - 2 days - Reason: Recheck today's complaints, Continuance of care, Re-evaluation by your physician Discharge Instructions: - Discharge Summary Sheet [facility] - Food Choices to Help Relieve Diarrhea, Adult jmm - Diarrhea, Adult jmm - Vomiting, Adult jmm Forms: - Medication Reconciliation Form [facility] - Thank You Letter [facility] - Antibiotic Education [facility] - Prescription Opioid Use [facility] Prescriptions: - ondansetron 4 mg Oral Tablet,disintegrating - take 1 tablet by ORAL route every 4-6 hours As needed; 30 tablet; Refills: 0, [facility] Product Selection Permitted Signatures: Dispatcher [employer] Enoch Moise PA PA jmm Lewis, Lynsay RN RN ll1 Zonia Serrano RN RN kc6
[2023-02-05 22:52] VITALS: TEMP 98.3
[2023-02-05 23:01] VITALS: O2SAT 100
[2023-02-05 23:06] VITALS: BP 137/60
== END 2023-02-05 21:05 | disposition home or self-care (01) ==
LOC: ER 15:21
DX: R11.10 Vomiting, unspecified (principal); R19.7 Diarrhea, unspecified; I10 Essential (primary) hypertension; E11.9 Type 2 diabetes mellitus without complications; I48.91 Unspecified atrial fibrillation; Z86.73 Personal history of transient ischemic attack (TIA), and cerebral infarction without residual deficits; Z88.1 Allergy status to other antibiotic agents; Z88.8 Allergy status to other drugs, medicaments and biological substances
CPT/HCPCS: 85025; 36415; 83690; 80053; 74177; 96375; 96372; 96374; 99285; Q9967; J0500; J2405; J7120

== ENCOUNTER 2023-04-08 06:55 | Emergency (ER) | payer OTHER ==
--- OUTSIDE RECORDS SUMMARY | 2023-04-08 07:09 | XMS REPORT | Continuity of Care Document ---
:1940 Author Organization [facility] t Address [address] [facility] [address] [place] [address] Care Team Providers Name Role Phone Asked, No Pcp Primary Care Physician Unavailable AVIS BAKER, AVIS Attending Clinician Unavailable [id number] Attending Clinician Unavailable Kemar Hall Attending Clinician Unavailable Chel Valdez Attending Clinician Unavailable Dany Iraheta Attending Clinician Unavailable JOSY SYED Attending Clinician Unavailable JASON Attending Clinician Unavailable Barry Dennis MD Attending Clinician Ree Tolbert Attending Clinician ABELINO AMARO Attending Clinician Unavailable ALANNA MOBLEY Attending Clinician Unavailable MARYSOL NGUYEN Attending Clinician Unavailable Doctor Unassigned, [place] Attending Clinician Unavailable Lynne Foster Attending Clinician Jose Eduardo Valdovinos MD Attending Clinician [phone] [place] [address] Attending Clinician Unavailable Pamela Terry DO Attending Clinician Chelsey Barker RN Attending Clinician Unavailable Josy Syed MD Attending Clinician Avtar Frazier Attending Clinician Kadeem DONALD, Todd Bates Attending Clinician Unavailable RAINE ZAYAS Attending Clinician Unavailable Hernando STRATTON, Latoya Duff Attending Clinician Abril STRATTON, Fabrizio Ortiz Attending Clinician Omra STRATTON, Matt Ghosh Attending Clinician Candelario STRATTON, Raine Zimmer Attending Clinician Kylie STRATTON, Jai Attending Clinician [phone] Chase Madsen MD Attending Clinician Katelynn STRATTON, Felipe Tejada Attending Clinician Jay STRATTON, Bela Attending Clinician Edith STRATTON, Rio Attending Clinician Aidan Watson MD Attending Clinician YOAV DEL ROSARIO Attending Clinician Unavailable LUIZ VILLA Attending Clinician Unavailable RANCHO SANDOVAL Attending Clinician Unavailable SAMULE, AVIS, AVIS Admitting Clinician Unavailable [id number] Admitting Clinician Unavailable JOSY SYED Admitting Clinician Unavailable ERCHACHOON_R Admitting Clinician Unavailable ABELINO AMARO Admitting Clinician Unavailable Josy Syed MD Admitting Clinician RAINE ZAYAS Admitting Clinician Unavailable Raine Zayas MD Admitting Clinician LUIZ VILLA Admitting Clinician Unavailable RANCHO SANDOVAL Admitting Clinician Unavailable Payers Payer Name Policy Type Policy Number Effective Date Expiration Source Date AETNA MEDICARE PPO [id number] 2022 00:00:00 AETM AETM [id number] MEDICARE PART A \\T\\ B [id number] 2003 00:00:00 AETNA (MEDICARE [id number] 2022 REPLACEMENT PPO) 00:00:00 MEDICARE B-[place]: [id number] [place] SOLUTIONS 00:00:00 AETNA [id number] 2000 00:00:00 MEDICAREMEDICARE A [id number] CEDRIC Lorraine michael [id number] 2003 00:00:00 [facility] AETNA - MGD CAREAETNA [id number] 2013 CEDRIC [place] INDEMNITY NON 00:00:00 [place] [id number] Med ical 14[facility] Problems Condition Condition Condition Status Onset Resolution Last Treating Co mments Source Name Details Category Date Date Treatment Clinician Date Chronic Chronic Problem Active [place] anemia Anemia 03-29 Communi 00:00: ty 00 [facility] Insomnia Insomnia Problem Active [facility] y 03-29 [facility]: [facility] Low back Low Back Problem Active [facility] pain Pain 03-18 [facility]i 00:00: ty 00 [facility] Clin[facility] Chronic Chronic Problem Active [place] insomnia Insomnia 03-18 [facility] i [facility]:00: [facility] Open Disease Active [place] fracture fracture 208 [facility] of of 00:00: proximal proximal 00 end of end of right right tibia with tibia with routine routine healing healing Recurrent Recurrent Problem Active [facility] urinary Urinary 2-28 Communi tract Tract 00:00: ty infection Infection 00 [facility]osp [facility] l Clinics Nutritiona Nutritiona Problem Active S [facility] l disorder l Disorder 1-24 [facility]00: [facility] Pressure Pressure Problem Active [facility] injury of Injury of 8-24 Comm uni buttock Buttock 00:00: ty 00 Hospita Clinics Hypokalemi Hypokalemi Problem Active S [facility] a a 8-09 Communi 00:00: ty 00 Hospita Clinics Recurrent Recurrent Disease Active Uni vers [...] Medical Branch 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 3-05 Communi lumbar [...] mmuni erosis in erosis in 00:00: ty [place] 00 Hospita artery Artery l Clinics 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 8-19 Co mmuni icular icular 00:00: ty tachycardi Tachycardi 00 Ho spita a a l Clinics Paroxysmal Paroxysmal Problem Active S [facility] atrial Atrial 8-19 Communi fibrillati Fibrillati 00:00: ty on on 00 Hospita l Clinics Thrombophl Thrombophl Problem Active [...] Hospita l Clinics Malignant Malignant Problem Active 2020-0 [facility] tumor of Tumor of 1-07 Commun i pituitary Pituitary 00:00: ty gland Gland 00 [facility] Hypothyroi Hypothyroi Problem Active 2020-0 S [facility] dism dism 1-07 Communi 00:00: ty 00 [facility] Type 2 Type 2 Problem Active 2020-0 [place] diabetes Diabetes 1-07 Commun i mellitus Mellitus 00:00: ty 00 [facility] Diabetic Diabetic Problem Active 2020- S[facility] peripheral Peripheral 1-07 Co mmuni neuropathy Neuropathy 00:00: ty 00 [facility] 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 [place] hyperchole Hyperchole 1-07 Co mmuni sterolemia sterolemia 00:00: ty and and 00 [facility] hypertrigl Hypertrigl l yceridemia yceridemia Cl inics Anxiety Anxiety Problem Active 2019-0 [place] 1-07 Communi 00:00: ty 00 [facility] Carpal Carpal Problem Active 2020-0 [place] tunnel 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 00:00: ty 00 [facility] Neuropathy Neuropathy Problem Active 2020-0 S weeny 1-07 Communi 00:00: ty 00 [facility] Hypertensi Hypertensi Problem Active 2020-0 S weeny ve ve 1-07 Communi disorder Disorder 00:00: ty 00 [facility] Chronic Chronic Problem Active 2020-0 [place] atrial Atrial 1-07 Communi fibrillati Fibrillati 00:00: ty on on [facility] Deep Deep Problem Active 2020-0 [place] venous Venous 1-07 Communi thrombosis Thrombosis 00:00: ty 00 [facility] Lymphedema Lymphedema Problem Active 2020-0 S weeny 1-07 Communi 00:00: ty 00 [facility] Gastroesop Gastroesop Problem Active 2020-0 S weeny hageal hageal 1-07 Communi reflux Reflux 00:00: ty disease Disease 00 [facility] History of History of Problem Active 2020-0 S ween[facility] malignant Malignant 1-07 Comm uni neoplasm Neoplasm 00:00: ty of breast of Breast 00 [facility] Sepsis Sepsis Disease Recurre [facility] Paroxysmal Paroxysmal Disease Recurre [facility] A-fib A-fib [facility]12 [facility] 00:[facility]: Medical 00 [place] Pancreatit Pancreatit Disease Active [facility] 01[facility]14 [facility] 00:[facility]: Medical 00 [place] Chest pain Chest pain Disease Active U nivers 6-15 ity of 00:00: [place] 00 Medical Branch Allergies, Adverse Reactions, Alerts Allergy Allergy Status Severity Reaction(s) Onset Inactive Treating Comm ents Source Name Type Date Date Clinician Rivaroxa Allergy Active [place] ban to 10-13 Health substanc 00:00: e 00 Ciproflo Allergy Active [place] xacin to 10-13 Health substanc 00:00: e 00 [...] l s to drug Ciproflo Propensi Active Other (See itch Me [...] Internal [facility] ban Intolera Comments) 5-12 bleeding Mindy es nce 00:00: Medical 00 Center Cipro Allergy Active [place] [facility] e Hospita l Clinics PENICILL Allergy Active [place] INS to Communi substan ty e Hospita l Clinics Xarelto Allergy Active [place] [facility] Clin[facility] Family History Family Member Diagnosis Comments Start Date Stop Date Source Natural father Coronary [facility] Natural father Heart disease [facility] Natural mother Coronary Heart [facility] Natural mother Heart disease [facility] Natural sister Heart [facility] Social History Social Habit Start Date Stop Date Quantity Comments Source Sexual orientation [facility] Gender identity [facility] Exposure to 2022-12-20 2022-12-30 Not sure [facility] SARS-CoV-2 (event) 00:00:00 10:11:00 Alcohol intake 2018-11-09 2018-11-[address] [facility] es 00:00:00 00:00:00 non-drinker of Medical nter alcohol (finding) Tobacco use and 2018-03-13 2018-03-[address] [facility] kes exposure 00:00:00 00:00:00 tobacco non-user [facility] Sex Assigned At [address] [facility] 00:[facility]00 [facility]:00 [facility] Center Smoking Status Start Date Stop Date Source Tobacco smoking consumption [facility] unknown Never smoker [facility] Medications Ordered Filled Start Stop Current Ordering Indication Dosage Frequency Signature Comments Components Source Medication Medication Date Date Medication? Clinician (SIG) Name Name trazodone trazodone No trazodone [place] 100 mg 100 mg 7-25 100 mg Communi tablet tablet 00:00: tablet ty 00 [facility] trazodone trazodone No trazodone [place] 100 mg 100 mg 7-25 100 mg Communi tablet tablet 00:00: tablet ty 00 [facility] lidocaine lidocaine No Q1D lidocaine [place] (PF) 50 (PF) 50 3-08 (PF) 50 Commun i mg/5 mL (1 mg/5 mL (1 11:26: mg/5 mL (1 ty %) %) 24 %) Hospita injection injection injection l syringeTake syringeTake syringeTak Clinics 2.1 mL 2.1 mL e 2.1 mL every day every day every day by by by injection injection injection route. route. route. ceftriaxone ceftriaxone No ceftriaxon [place] 500 mg 500 mg 3-08 e 500 mg Communi solution solution 11:25: solution t y for for 40 for Hospita injectionTa injectionTa injectionT l ke 500 mg ke 500 mg anat 500 mg Clinics by by by injection injection injection route. route. route. lidocaine lidocaine No Q1D lidocaine [place] (PF) 50 (PF) 50 3-04 (PF) 50 Commun i mg/5 mL (1 mg/5 mL (1 11:32: mg/5 mL (1 ty %) %) 36 %) Hospita injection injection injection l syringeTake syringeTake syringeTak [facility] 2.1 mL 2.1 mL e 2.1 mL every day every day every day by by by injection injection injection route for 4 route for 4 route for days. days. 4 days. ceftriaxone ceftriaxone No ceftriaxon [place] 500 mg 500 mg 3-04 e 500 mg Communi solution solution 11:31: solution t y for for 50 for Hospita injectionTa injectionTa injectionT l ke 500 mg ke 500 mg anat 500 mg Clinics by by by injection injection injection route. route. route. lidocaine lidocaine No Q1D lidocaine [place] (PF) 50 (PF) 50 3-03 (PF) 50 Commun i mg/5 mL (1 mg/5 mL (1 14:33: mg/5 mL (1 ty %) %) 20 %) Hospita injection injection injection l syringeTake syringeTake syringeTak [facility] 2.1 mL 2.1 mL e 2.1 mL every day every day every day by by by injection injection injection route for 4 route for 4 route for days. days. 4 days. ceftriaxone ceftriaxone No ceftriaxon [place] 500 mg 500 mg 3-03 e 500 mg Communi solution solution 14:30: solution t y for for 22 for Hospita injectionTa injectionTa injectionT l ke 500 mg ke 500 mg anat 500 mg Clinics by by by injection injection injection route. route. route. ceftriaxone ceftriaxone No ceftriaxon [place] 500 mg 500 mg 2-28 e 500 mg Communi solution solution 14:40: solution t y for for 23 for Hospita injectionTa injectionTa injectionT l ke 500 mg ke 500 mg anat 500 mg Clinics by by by injection injection injection route. route. route. lidocaine lidocaine No Q1D lidocaine [place] (PF) 50 (PF) 50 2-28 (PF) 50 [...] route for days. days. 4 days. isosorbide Yes [id number] 30mg Take 1 U nivers mononitrate 7-10 tablet by ity of 30 mg 24 hr 00:00: mouth [place] tablet 00 daily. Medical Branch levothyroxi Yes [id number] 112ug Take 1 Univers ne 112 mcg 7-10 tablet by ity of tablet 00:00: mouth [place] 00 every Medical morning. Branch hydrocortis Yes [id number] 40mg Take 2 Univers one 20 mg 7-10 tablets by ity of tablet 00:00: mouth [place] 00 every Medical morning. Branch isosorbide Yes [id number] 30mg Take 1 U nivers mononitrate 7-10 tablet by ity of 30 mg 24 hr 00:00: mouth [place] tablet 00 daily. Medical Branch levothyroxi Yes [id number] 112ug Take 1 Univers ne 112 mcg 7-10 tablet by ity of tablet 00:00: mouth [place] 00 every Medical morning. Branch hydrocortis Yes [id number] 40mg Take 2 Univers one 20 mg [...] mouth ity of mg tablet 18:04: daily. [place] 43 Medical Branch CALCIUM Yes 1{tbl} Take [...] 43 as needed. Medical Branch lipase-prot Yes [id number] 1{capsu Take 1 Univers ease-amylas 7-09 107 le} capsule by it y of e 00:00: mouth 3 [place] 10,500-35,5 00 (three) Medic al 00- 61,500 times Branch unit daily with meals. polyethylen Yes [id number] 17g Take 1 Univers e glycol 7-09 Packet by ity of 3350 17 00:00: mouth 2 [place] gram powder 00 (two) Medical times Branch daily as needed for Constipati on. simethicone Yes [id number] 80mg Take 1 Univers 80 mg 7-09 tablet by ity of chewable 00:00: mouth 2 [place] tablet 00 (two) Medical times Branch daily as needed for Gas. somatropin Yes [id number] .2mg inject U nivers 0.2 mg/0.25 7-09 0.25 mL ity o f mL 00:00: under the [place] [address] skin Medical daily. Branch apixaban 5 Yes [id number] 5mg Take 1 Unive rs mg tablet 7- tablet by ity o f 00:00: mouth 2 [place] 00 (two) Medical times Branch daily. Indication s: atrial fibrillati on hydrocortis Yes [id number] 20mg Take 1 Univers one 20 mg - tablet by ity o f tablet 00:00: mouth [place] 00 every Medical evening. Branch mirtazapine Yes [id number] 15mg Take 1 Univers 15 mg - tablet by ity of tablet 00:00: mouth at [place] 00 bedtime. Medical Branch hydrocortis Yes [id number] 100mg 2 mL by Univers one sod 03-13 Intramuscu ity of succ 100 00:00: lar route [place] mg/2 mL 00 as needed Medical injection (As rescue Bran ch for low cortisol if there is low BP, N/V.). lipase-prot Yes [id number] 1{capsu Take 1 Univers ease-amylas 03-13 107 le} capsule by it y of e 00:00: mouth 3 [place] 10,500-35,5 00 (three) Medic al 00- 61,500 times Branch unit daily with meals. polyethylen Yes [id number] 17g Take 1 Univers e glycol - Packet by ity of 3350 17 00:00: mouth 2 [place] gram powder 00 (two) Medical times Branch daily as needed for Constipati on. simethicone Yes [id number] 80mg Take 1 Univers 80 mg -09 tablet by ity of chewable 00:00: mouth 2 [place] tablet 00 (two) Medical times Branch daily as needed for Gas. somatropin Yes [id number] .2mg inject U nivers 0.2 mg/0.25 7-09 0.25 mL ity o f mL 00:00: under the [place] 00 skin Medical daily. Branch apixaban 5 Yes [id number] 5mg Take 1 Unive rs mg tablet 03-13 tablet by ity o f 00:00: mouth 2 [place] 00 (two) Medical times Branch daily. Indication s: atrial fibrillati on hydrocortis Yes [id number] 20mg Take 1 Univers one 20 mg -09 tablet by ity o f tablet 00:00: mouth [place] 00 every Medical evening. Branch mirtazapine Yes [id number] 15mg Take 1 Univers 15 mg - tablet by ity of tablet 00:00: mouth at [place] 00 bedtime. Medical Branch hydrocortis Yes [id number] 100mg 2 mL by Univers one sod 03-13 Intramuscu ity of succ 100 00:00: lar route [place] mg/2 mL 00 as needed Medical injection (As rescue Bran ch for low cortisol if there is low BP, N/V.). acetaminoph 2021- No [id number] 650mg Take 2 Univers en 325 mg 03-13 8 tablets by ity of tablet 00:00: 04:59 mouth [place] 00 :00 every 6 Medical (six) Branch hours as needed for Pain (scale 1-3). acetaminoph 2021- No [id number] 650mg Take 2 Univers en 325 mg [...] 00 every Medical evening. Branch cholecalcif Yes [id number] Take [facility], 3-07 50,000 [facility] vitamin D3, 12:12: Units by Co dical 50,000 unit 28 mouth once Ce [...] usly. Medic al PnIj 28 Center cholecalcif 20190 Yes [id number] Take [facility], 3-07 50,000 [facility] [...] al PnIj 28 Center cholecalcif 2019-0 Yes [id number] [facility], 3-07 50,000 [facility] [...] mg/mL) 12:12: usly. Medic al PnIj 28 [place] cholecalcif Yes [id number] Take [facility], 3-07 50,000 [facility] vitamin D3, 12:12: Units by Co dical 50,000 unit 28 mouth once Ce nter Tab every 2 weeks. hydrocortis 2019-0 Yes 10mg Q.5D Take [address] one 3-07 by mouth 2 [facility] (CORTEF) 20 12:12: (two) Medic al MG tablet 28 times Center daily . fenofibrate 2018-0 Yes 48mg QD Take [address] (TRICOR) 48 3-07 by mouth Luke s MG tablet 12:12: daily. Medica l 28 [place] omeprazole 0 Yes 40mg QD Take 40 mg C [...] tablet 28 needed for Center Anxiety. somatropin 2019 Yes Inject [facility] S t 5 mg/1.5 mL 3-07 subcutaneo Domitila kes (3.3 mg/mL) 12:12: usly. Medic al PnIj 28 Center cholecalcif 0 Yes [id number] Take [facility], 3-07 50,000 [facility] [...] mg/mL) 12:12: usly. Medic al PnIj 28 [place] cholecalcif 20190 Yes [id number] Take [facility], 3-07 50,000 [facility] [...] mouth Medical tablet 27 daily. Center methscopola 2018-0 Yes 5mg QD Take 5 mg C [...] MG tablet 12:12: daily. Medica l 27 [place] losartan 2018-0 Yes 100mg QD Take 100 [...] 00:00: mouth Medical tablet 00 daily . [place] warfarin 2018-0 Yes 2.5mg QD Take 2.[address] (COUMADIN) 4-25 mg by [facility]ukes 2.5 MG 00:00: mouth Medical tablet 00 daily . [place] warfarin 2018-0 Yes 2.5mg QD Take 2.[address] (COUMADIN) 4-25 mg by [facility]ukes 2.5 MG 00:00: mouth Medical tablet 00 daily . [place] warfarin 2018-0 Yes 2.5mg QD Take 2.[address] (COUMADIN) 4-25 mg by Lukes 2.5 MG 00:00: mouth Medical tablet 00 daily . [place] warfarin 2018-0 Yes 2.5mg QD Take 2.[address] (COUMADIN) 4-25 mg by Lukes 2.5 MG 00:00: mouth Medical tablet 00 daily . [place] warfarin 2018-0 Yes 2.5mg QD Take 2.[address] (COUMADIN) 4-25 mg by Lukes 2.5 MG 00:00: mouth Medical tablet 00 daily . [place] gabapentin 2018-0 Yes 600mg Q.[id number] Take [address] (NEURONTIN) 4-16 [id number] mg by L ukes 600 MG 00:00: 3D mouth 3 Medical tablet 00 (three) Center times daily . gabapentin 2018-0 Yes 600mg Q.[id number] Take [address] (NEURONTIN) 4-16 [id number] mg by L ukes 600 MG 00:00: 3D mouth 3 Medical tablet 00 (three) Center times daily . gabapentin 2018-0 Yes 600mg Q.[id number] Take [address] (NEURONTIN) 4-16 [id number] mg by L ukes 600 MG 00:00: 3D mouth 3 Medical tablet 00 (three) Center times daily . gabapentin 2018-0 Yes 600mg Q.[id number] Take [address] (NEURONTIN) 4-16 [id number] mg by L ukes 600 MG 00:00: 3D mouth 3 Medical tablet 00 (three) Center times daily . gabapentin 2018-0 Yes 600mg Q.[id number] Take [address] (NEURONTIN) 4-16 [id number] mg by L ukes 600 MG 00:00: 3D mouth 3 Medical tablet 00 (three) Center times daily . gabapentin 2018 Yes 600mg Q.[id number] Take [address] (NEURONTIN) 4-16 [id number] mg by L ukes 600 MG 00:00: 3D mouth 3 Medical tablet 00 (three) Center times daily . liothyronin Yes 5ug QD Take [address] e (CYTOMEL) 3-21 by mouth Luke s 5 MCG 00:00: daily . Medical tablet 00 [place] liothyronin Yes 5ug QD Take [address] e (CYTOMEL) 3-21 by mouth Luke s 5 MCG 00:00: daily . Medical tablet 00 [place] liothyronin Yes 5ug QD Take [address] e (CYTOMEL) 3-21 by mouth Luke s 5 MCG 00:00: daily . Medical tablet 00 [place] liothyronin Yes 5ug QD Take [address] e (CYTOMEL) 3-21 by mouth Luke s 5 MCG 00:00: daily . Medical tablet 00 [place] liothyronin Yes 5ug QD Take [address] e (CYTOMEL) 3-21 by mouth Luke s 5 MCG 00:00: daily . Medical tablet 00 [place] liothyronin Yes 5ug QD Take [address] e (CYTOMEL) 3-21 by mouth Luke s 5 MCG 00:00: daily . Medical tablet 00 [place] OneTouch OneTouch No OneTouch Swe madeleine Delica [...] DAY TEST TWICE Hospita A DAY Clinics potassium potassium No potassium [place] chloride ER chloride ER chloride Communi 20 mEq 20 mEq ER 20 mEq ty tablet,exte tablet,exte tablet,ext Hospita nded nded ended l release(par release(par release(pa Clinics t/cryst) t/cryst) rt/cryst) TAKE 1 TAKE 1 TAKE 1 TABLET BY TABLET BY TABLET BY MOUTH EVERY MOUTH EVERY MOUTH DAY DAY EVERY DAY Santyl 250 Santyl 250 No Santyl 250 [place] unit/gram unit/gram unit/gram Communi topical topical topical ty ointment ointment ointment Hos michael APPLY A APPLY A APPLY A l DIONY DIONY DIONY [facility] THICK THICK THICK AMOUNT TO AMOUNT TO AMOUNT TO WOUND 3 WOUND 3 WOUND 3 TIMES A TIMES A TIMES A WEEK WEEK WEEK sotalol 160 sotalol 160 No sotalol [place] mg tablet mg tablet 160 mg Com raz TAKE 1 TAKE 1 tablet ty TABLET BY TABLET BY TAKE 1 Hos michael MOUTH TWICE MOUTH TWICE TABLET BY l A DAY A DAY MOUTH Clinics TWICE A DAY tramadol 50 tramadol 50 No tramadol [place] mg tablet mg tablet 50 mg Comm uni TAKE 1 TAKE 1 tablet ty TABLET BY TABLET BY TAKE 1 Hos michael MOUTH EVERY MOUTH EVERY TABLET BY l 8 HOURS 8 HOURS MOUTH Cl inics NEEDED FOR NEEDED FOR EVERY 8 PAIN PAIN HOURS NEEDED FOR PAIN amlodipine amlodipine No amlodipine [place] 5 mg tablet 5 mg tablet 5 mg C ommuni TAKE 1 TAKE 1 tablet ty TABLET BY TABLET BY TAKE 1 Hos michael MOUTH EVERY MOUTH EVERY TABLET BY l DAY DAY MOUTH Clinics EVERY DAY atorvastati atorvastati No atorvastat [place] n 20 mg n 20 mg in 20 mg Commu ni tablet TAKE tablet TAKE tablet ty 1 TABLET BY 1 TABLET BY TAKE 1 Hospita MOUTH EVERY MOUTH EVERY TABLET BY l DAY FOR 90 DAY FOR 90 MOUTH Cl inics DAYS DAYS EVERY DAY FOR 90 DAYS BD Kalee 2nd BD Kalee 2nd No BD Kalee [place] Gen Pen Gen Pen 2nd Gen Commun [...] EVERY 12 HOURS cholecalcif cholecalcif No cholecalci [place] ghada ghada ferol Communi (vitamin (vitamin (vitamin ty D3) 1,250 D3) 1,250 D3) 1,250 Hospita mcg (50,000 mcg (50,000 mcg l unit) unit) (50,000 Clinics capsule capsule unit) TAKE 1 TAKE 1 capsule CAPSULE BY CAPSULE BY TAKE 1 MOUTH EVERY MOUTH EVERY CAPSULE BY 15 DAYS 15 DAYS MOUTH EVERY 15 DAYS ciprofloxac ciprofloxac No ciprofloxa [place] in 500 mg in 500 mg anuj 500 mg Communi tablet tablet tablet ty Hospita l Clinics clonazepam clonazepam No clonazepam [place] 0.5 mg 0.5 mg 0.5 mg Communi [...] DAY EVERY DAY doxycycline doxycycline No doxycyclin [place] hyclate 100 hyclate 100 e hyclate Communi mg capsule mg capsule 100 mg t y TAKE 1 TAKE 1 capsule Hospita CAPSULE BY CAPSULE BY TAKE 1 l MOUTH TWICE MOUTH TWICE CAPSULE BY Clinics A DAY A DAY MOUTH TWICE A DAY famotidine famotidine No famotidine [place] 20 mg 20 mg 20 mg Communi tablet TAKE tablet TAKE tablet ty 1 TABLET BY 1 [facility] MOUTH AT TABLET BY l BEDTIME BEDTIME MOUTH AT Clini BEDTIME glipizide glipizide No glipizide [place] ER 2.5 mg ER 2.5 mg ER [...] BREAKFAST Humatrope 6 Humatrope 6 No Humatrope [place] mg (18 mg (18 6 mg (18 Communi unit) unit) unit) ty injection injection injection [facility] cartridge cartridge cartridge l INJECT INJECT INJECT Clinics 0.3MG 0.3MG 0.3MG SUBCUTANEOU SUBCUTANEOU SUBCUTANEO SLY ONCE A SLY ONCE A USLY ONCE DAY. DAY. A DAY. hydrocodone hydrocodone No hydrocodon [place] 5 5 e 5 Communi mg-acetamin mg-acetamin mg-acetami ty ophen 325 ophen 325 nophen 325 Hospita mg tablet mg tablet mg tablet l Clinics hydrocortis hydrocortis No hydrocorti [place] one 20 mg one 20 mg sone 20 mg Communi tablet TAKE tablet TAKE tablet ty 1 TABLET BY 1 TABLET BY TAKE 1 Hospita MOUTH WITH MOUTH WITH TABLET BY l BREAKFAST, BREAKFAST, MOUTH WITH Clinics THEN TAKE 2 THEN TAKE 2 BREAKFAST, TABLETS TABLETS THEN TAKE WITH WITH 2 TABLETS DINNER. DINNER. WITH DINNER. isosorbide isosorbide No isosorbide [place] mononitrate mononitrate mononitrat Communi ER 30 mg ER 30 mg e ER 30 mg t y tablet,exte tablet,exte tablet,ext Hospita nded nded ended l release 24 release 24 release 24 Clinics hr TAKE 1 hr TAKE 1 hr TAKE 1 TABLET BY TABLET BY TABLET BY MOUTH EVERY MOUTH EVERY MOUTH DAY DAY EVERY DAY Klor-Con 10 Klor-Con 10 No Klor-Con [place] mEq mEq 10 mEq Communi tablet,exte tablet,exte tablet,ext ty nded nded ended Hospita release release release l TAKE 1 TAKE 1 TAKE 1 Clinics TABLET BY TABLET BY TABLET BY MOUTH EVERY MOUTH EVERY MOUTH DAY WITH DAY WITH EVERY DAY FOOD FOOD WITH FOOD levothyroxi levothyroxi No levothyrox [place] ne 112 mcg ne 112 mcg ine 112 Communi tablet TAKE tablet TAKE mcg tablet ty 1 TABLET BY 1 TABLET BY TAKE 1 Hospita MOUTH ONCE MOUTH ONCE TABLET BY l DAILY 1/2 DAILY 1/2 MOUTH ONCE Clinics HOUR BEFOR HOUR BEFOR DAILY 1/2 BREKFAST BREKFAST HOUR BEFOR WITH WATER WITH WATER BREKFAST WITH WATER lidocaine 5 lidocaine 5 No lidocaine [place] % topical % topical 5 % Commu ni patch APPLY patch APPLY topical ty 1 PATCH BY 1 PATCH BY patch Ho [facility] TOPICAL TOPICAL APPLY 1 l ROUTE ONCE ROUTE ONCE PATCH BY Clinics DAILY (MAY DAILY (MAY TOPICAL WEAR UP TO WEAR UP TO ROUTE ONCE 12HOURS.) 12HOURS.) DAILY (MAY WEAR UP TO 12HOURS.) liothyronin liothyronin No liothyroni [place] e 5 mcg e 5 mcg ne [...] WATER losartan 50 losartan 50 No losartan [place] mg tablet mg tablet 50 mg Comm uni TAKE 1 TAKE 1 tablet ty TABLET BY TABLET BY TAKE 1 [facility] MOUTH EVERY MOUTH EVERY TABLET BY l DAY FOR 90 DAY FOR 90 MOUTH Cl inics DAYS DAYS EVERY DAY FOR 90 DAYS mirtazapine mirtazapine No mirtazapin [place] 15 mg 15 mg e 15 mg Communi tablet TAKE tablet TAKE tablet ty 1 TABLET BY 1 TABLET BY TAKE 1 Hospita MOUTH MOUTH TABLET BY l EVERYDAY AT EVERYDAY AT MOUTH Clinics BEDTIME BEDTIME EVERYDAY AT BEDTIME mupirocin 2 mupirocin 2 No mupirocin [place] % topical % topical 2 % Commu [...] DAY NEEDED nitroglycer nitroglycer No 1 nitroglyce [place] in 0.4 mg in 0.4 mg rin 0.4 mg Communi sublingual sublingual sublingual ty tablet tablet tablet Hospita Place [address] 1 l tablet as tablet as tablet as Clinics needed by needed by needed by sublingual sublingual sublingual route. route. route. omeprazole omeprazole No omeprazole [place] 40 mg 40 mg 40 mg Communi [...] DAY l Clinics potassium potassium No potassium [place] chloride ER chloride ER chloride Communi 20 mEq 20 mEq ER 20 mEq ty tablet,exte tablet,exte tablet,ext Hospita nded nded ended l release(par release(par release(ri Clinics t/cryst) t/cryst) rt/cryst) TAKE 1 TAKE 1 TAKE 1 TABLET BY TABLET BY TABLET BY MOUTH EVERY MOUTH EVERY MOUTH DAY DAY EVERY DAY Santyl 250 Santyl 250 No Santyl 250 [place] unit/gram unit/gram unit/gram Communi topical topical topical ty ointment ointment ointment [facility] APPLY A APPLY A APPLY A l [facility] THICK THICK THICK AMOUNT TO AMOUNT TO AMOUNT TO WOUND 3 WOUND 3 WOUND 3 TIMES A TIMES A TIMES A WEEK WEEK WEEK sotalol 160 sotalol 160 No sotalol [place] mg tablet mg tablet 160 mg Com raz TAKE 1 TAKE 1 tablet ty TABLET BY TABLET BY TAKE 1 [facility] MOUTH EVERY MOUTH EVERY TABLET BY l 12 HOURS 12 HOURS MOUTH Clinic s FOR 90 DAYS FOR 90 DAYS EVERY 12 HOURS FOR 90 DAYS tramadol 50 tramadol 50 No tramadol [place] mg tablet mg tablet 50 mg Comm uni TAKE 1 TAKE 1 tablet ty TABLET BY TABLET BY TAKE 1 [facility] MOUTH EVERY MOUTH EVERY TABLET BY l 12 HOURS 12 HOURS MOUTH Clinics NEEDED FOR NEEDED FOR EVERY 12 PAIN PAIN HOURS NEEDED FOR PAIN amlodipine amlodipine No amlodipine [place] 5 mg tablet 5 mg tablet 5 mg C [facility] TAKE 1 TAKE 1 tablet ty TABLET BY TABLET BY TAKE 1 [facility] MOUTH EVERY MOUTH EVERY TABLET BY l DAY FOR 90 DAY FOR 90 MOUTH Cl inics DAYS DAYS EVERY DAY FOR 90 DAYS atorvastati atorvastati No atorvastat [place] n 20 mg n 20 mg in 20 mg Commu ni tablet TAKE tablet TAKE tablet ty 1 TABLET BY 1 TABLET BY TAKE 1 Hospita MOUTH EVERY MOUTH EVERY TABLET BY l DAY DAY MOUTH Clinics EVERY DAY BD [place]alee 2nd BD Kalee 2nd No BD Kalee [place] Gen Pen Gen Pen 2nd Gen Commun [...] EVERY 12 HOURS cholecalcif cholecalcif No cholecalci [place] ghada ghada ferol Communi (vitamin (vitamin (vitamin ty D3) 1,250 D3) 1,250 D3) 1,250 Hospita mcg (50,000 mcg (50,000 mcg l unit) unit) (50,000 Clinics capsule capsule unit) TAKE 1 TAKE 1 capsule CAPSULE BY CAPSULE BY TAKE 1 MOUTH EVERY MOUTH EVERY CAPSULE BY 15 DAYS 15 DAYS MOUTH EVERY 15 DAYS ciprofloxac ciprofloxac No ciprofloxa [place] in 500 mg in 500 mg anuj 500 mg Communi tablet tablet tablet ty Hospita l Clinics clonazepam clonazepam No clonazepam [place] 0.5 mg 0.5 mg 0.5 mg Communi [...] DAY EVERY DAY doxycycline doxycycline No doxycyclin [place] hyclate 100 hyclate 100 e hyclate Communi mg capsule mg capsule 100 mg t y TAKE 1 TAKE 1 capsule Hospita CAPSULE BY CAPSULE BY TAKE 1 l MOUTH TWICE MOUTH TWICE CAPSULE BY Clinics A DAY A DAY MOUTH TWICE A DAY famotidine famotidine No famotidine [place] 20 mg 20 mg 20 mg Communi tablet TAKE tablet TAKE tablet ty 1 TABLET BY 1 TABLET BY TAKE 1 Hospita MOUTH EVERY MOUTH EVERY TABLET BY l DAY DAY MOUTH Clinics EVERY DAY gabapentin gabapentin No gabapentin [place] 100 mg 100 mg 100 mg Communi capsule capsule capsule ty TAKE 1 TAKE 1 TAKE 1 Hospita CAPSULE BY CAPSULE BY CAPSULE BY l MOUTH AT MOUTH AT MOUTH AT i nics BEDTIME BEDTIME BEDTIME glipizide glipizide No glipizide [place] ER 2.5 mg ER 2.5 mg ER [...] BREAKFAST Humatrope 6 Humatrope 6 No Humatrope [place] mg (18 mg (18 6 mg (18 Communi unit) unit) unit) ty injection injection injection [facility] cartridge cartridge cartridge l INJECT INJECT INJECT Clinics 0.3MG 0.3MG 0.3MG SUBCUTANEOU SUBCUTANEOU SUBCUTANEO SLY ONCE A SLY ONCE A USLY ONCE DAY. DAY. A DAY. hydrocodone hydrocodone No hydrocodon [place] 5 5 e 5 Communi mg-acetamin mg-acetamin mg-acetami ty ophen 325 ophen 325 nophen 325 Hospita mg tablet mg tablet mg tablet l Clinics hydrocortis hydrocortis No hydrocorti [place] one 20 mg one 20 mg sone 20 mg Communi tablet TAKE tablet TAKE tablet ty 1 TABLET BY 1 TABLET BY TAKE 1 Hospita MOUTH WITH MOUTH WITH TABLET BY l BREAKFAST, BREAKFAST, MOUTH WITH Clinics THEN TAKE 2 THEN TAKE 2 BREAKFAST, TABLETS TABLETS THEN TAKE WITH WITH 2 TABLETS DINNER. DINNER. WITH DINNER. hydrocortis hydrocortis No hydrocorti [place] one 5 mg one 5 mg sone [...] MOUTH EVERY EVENING isosorbide isosorbide No isosorbide [place] mononitrate mononitrate mononitrat Communi ER 30 mg ER 30 mg e ER 30 mg t y tablet,exte tablet,exte tablet,ext Hospita nded nded ended l release 24 release 24 release 24 Clinics hr TAKE 1 hr TAKE 1 hr TAKE 1 TABLET BY TABLET BY TABLET BY MOUTH EVERY MOUTH EVERY MOUTH DAY DAY EVERY DAY Klor-Con 10 Klor-Con 10 No Klor-Con [place] mEq mEq 10 mEq Communi tablet,exte tablet,exte tablet,ext ty nded nded ended Hospita release release release l TAKE 1 TAKE 1 TAKE 1 Clinics TABLET BY TABLET BY TABLET BY MOUTH EVERY MOUTH EVERY MOUTH DAY WITH DAY WITH EVERY DAY FOOD FOOD WITH FOOD levothyroxi levothyroxi No levothyrox [place] ne 112 mcg ne 112 mcg ine 112 Communi tablet TAKE tablet TAKE mcg tablet ty 1 TABLET BY 1 TABLET BY TAKE 1 Hospita MOUTH EVERY MOUTH EVERY TABLET BY l DAY DAY MOUTH Clinics EVERY DAY lidocaine 5 lidocaine 5 No lidocaine [place] % topical % topical 5 % Com[facility] ni patch APPLY patch APPLY topical ty 1 PATCH BY 1 PATCH BY patch [facility] TOPICAL TOPICAL APPLY 1 l ROUTE ONCE ROUTE ONCE PATCH BY Clinics DAILY (MAY DAILY (MAY TOPICAL WEAR UP TO WEAR UP TO ROUTE ONCE 12HOURS.) 12HOURS.) DAILY (MAY WEAR UP TO 12HOURS.) liothyronin liothyronin No liothyroni [place] e 5 mcg e 5 mcg ne [...] WATER losartan 50 losartan 50 No losartan [place] mg tablet mg tablet 50 mg Comm uni TAKE 1 TAKE 1 tablet ty TABLET BY TABLET BY TAKE 1 [facility] MOUTH EVERY MOUTH EVERY TABLET BY l DAY FOR 90 DAY FOR 90 MOUTH Cl inics DAYS DAYS EVERY DAY FOR 90 DAYS mirtazapine mirtazapine No mirtazapin [place] 15 mg 15 mg e 15 mg Communi tablet TAKE tablet TAKE tablet ty 1 TABLET BY 1 TABLET BY TAKE 1 Hospita MOUTH MOUTH TABLET BY l EVERYDAY AT EVERYDAY AT MOUTH Clinics BEDTIME BEDTIME EVERYDAY AT BEDTIME mupirocin 2 mupirocin 2 No mupirocin [place] % topical % topical 2 % Commu [...] DAY NEEDED nitroglycer nitroglycer No 1 nitroglyce [place] in 0.4 mg in 0.4 mg rin 0.4 mg Communi sublingual sublingual sublingual ty tablet tablet tablet Hospita Place [address] 1 l tablet as tablet as tablet as Clinics needed by needed by needed by sublingual sublingual sublingual route. route. route. omeprazole omeprazole No omeprazole [place] 40 mg 40 mg 40 mg Communi [...] DAY l Clinics potassium potassium No potassium [place] chloride ER chloride ER chloride Communi 20 mEq 20 mEq ER 20 mEq ty tablet,exte tablet,exte tablet,ext Hospita nded nded ended l release(par release(par release(ri Clinics t/cryst) t/cryst) rt/cryst) TAKE 1 TAKE 1 TAKE 1 TABLET BY TABLET BY TABLET BY MOUTH EVERY MOUTH EVERY MOUTH DAY DAY EVERY DAY Santyl 250 Santyl 250 No Santyl 250 [place] unit/gram unit/gram unit/gram Communi topical topical topical ty ointment ointment ointment [facility] APPLY A APPLY A APPLY A l DIONY DIONY DIONY Clinics THICK THICK THICK AMOUNT TO AMOUNT TO AMOUNT TO WOUND 3 WOUND 3 WOUND 3 TIMES A TIMES A TIMES A WEEK WEEK WEEK sotalol 160 sotalol 160 No sotalol [place] mg tablet mg tablet 160 mg Com raz TAKE 1 TAKE 1 tablet ty TABLET BY TABLET BY TAKE 1 [facility] MOUTH EVERY MOUTH EVERY TABLET BY l 12 HOURS 12 HOURS MOUTH Clinic s FOR 90 DAYS FOR 90 DAYS EVERY 12 HOURS FOR 90 DAYS sotalol 80 sotalol 80 No sotalol 80 [place] mg tablet mg tablet mg tablet Communi TAKE 1 TAKE 1 TAKE 1 ty TABLET BY TABLET BY TABLET BY Hospita MOUTH EVERY MOUTH EVERY MOUTH l DAY DAY EVERY DAY Clinics tramadol 50 tramadol 50 No tramadol [place] mg tablet mg tablet 50 mg Comm uni TAKE 1 TAKE 1 tablet ty TABLET BY TABLET BY TAKE 1 [facility] MOUTH EVERY MOUTH EVERY TABLET BY l 12 HOURS 12 HOURS MOUTH Clinics NEEDED FOR NEEDED FOR EVERY 12 PAIN PAIN HOURS NEEDED FOR PAIN amlodipine amlodipine No amlodipine [place] 5 mg tablet 5 mg tablet 5 mg C [facility] TAKE 1 TAKE 1 tablet ty TABLET BY TABLET BY TAKE 1 [facility] MOUTH EVERY MOUTH EVERY TABLET BY l DAY FOR 90 DAY FOR 90 MOUTH Cl inics DAYS DAYS EVERY DAY FOR 90 DAYS atorvastati atorvastati No atorvastat [place] n 20 mg n 20 mg in 20 mg Commu ni tablet TAKE tablet TAKE tablet ty 1 TABLET BY 1 TABLET BY TAKE 1 Hospita MOUTH EVERY MOUTH EVERY TABLET BY l DAY DAY MOUTH Clinics EVERY DAY BD [place] 2nd BD [facility] 2nd No BD Kalee [place] Gen Pen Gen Pen 2nd Gen Commun [...] EVERY 12 HOURS cholecalcif cholecalcif No cholecalci [place] ghada ghada ferol Communi (vitamin (vitamin (vitamin ty D3) 1,250 D3) 1,250 D3) 1,250 Hospita mcg (50,000 mcg (50,000 mcg l unit) unit) (50,000 Clinics capsule capsule unit) TAKE 1 TAKE 1 capsule CAPSULE BY CAPSULE BY TAKE 1 MOUTH EVERY MOUTH EVERY CAPSULE BY 15 DAYS 15 DAYS MOUTH EVERY 15 DAYS ciprofloxac ciprofloxac No ciprofloxa [place] in 500 mg in 500 mg anuj 500 mg Communi tablet tablet tablet ty Hospita l Clinics clonazepam clonazepam No clonazepam [place] 0.5 mg 0.5 mg 0.5 mg Communi [...] DAY EVERY DAY doxycycline doxycycline No doxycyclin [place] hyclate 100 hyclate 100 e hyclate Communi mg capsule mg capsule 100 mg t y TAKE 1 TAKE 1 capsule Hospita CAPSULE BY CAPSULE BY TAKE 1 l MOUTH TWICE MOUTH TWICE CAPSULE BY Clinics A DAY A DAY MOUTH TWICE A DAY famotidine famotidine No famotidine [place] 20 mg 20 mg 20 mg Communi tablet TAKE tablet TAKE tablet ty 1 TABLET BY 1 TABLET BY TAKE 1 Hospita MOUTH EVERY MOUTH EVERY TABLET BY l DAY DAY MOUTH Clinics EVERY DAY gabapentin gabapentin No gabapentin [place] 100 mg 100 mg 100 mg Communi capsule capsule capsule ty TAKE 1 TAKE 1 TAKE 1 Hospita CAPSULE BY CAPSULE BY CAPSULE BY l MOUTH AT MOUTH AT MOUTH AT Cli nics BEDTIME BEDTIME BEDTIME glipizide glipizide No glipizide [place] ER 2.5 mg ER 2.5 mg ER [...] BREAKFAST Humatrope 6 Humatrope 6 No Humatrope [place] mg (18 mg (18 6 mg (18 Communi unit) unit) unit) ty injection injection injection Hospita cartridge cartridge cartridge l INJECT INJECT INJECT Clinics 0.3MG 0.3MG 0.3MG SUBCUTANEOU SUBCUTANEOU SUBCUTANEO SLY ONCE A SLY ONCE A USLY ONCE DAY. DAY. A DAY. hydrocodone hydrocodone No hydrocodon [place] 5 5 e 5 Communi mg-acetamin mg-acetamin mg-acetami ty ophen 325 ophen 325 nophen 325 Hospita mg tablet mg tablet mg tablet l Clinics hydrocortis hydrocortis No hydrocorti [place] one 20 mg one 20 mg sone 20 mg Communi tablet TAKE tablet TAKE tablet ty 1 TABLET BY 1 TABLET BY TAKE 1 Hospita MOUTH WITH MOUTH WITH TABLET BY l BREAKFAST, BREAKFAST, MOUTH WITH Clinics THEN TAKE 2 THEN TAKE 2 BREAKFAST, TABLETS TABLETS THEN TAKE WITH WITH 2 TABLETS DINNER. DINNER. WITH DINNER. hydrocortis hydrocortis No hydrocorti [place] one 5 mg one 5 mg sone [...] MOUTH EVERY EVENING isosorbide isosorbide No isosorbide [place] mononitrate mononitrate mononitrat Communi ER 30 mg ER 30 mg e ER 30 mg t y tablet,exte tablet,exte tablet,ext Hospita nded nded ended l release 24 release 24 release 24 Clinics hr TAKE 1 hr TAKE 1 hr TAKE 1 TABLET BY TABLET BY TABLET BY MOUTH EVERY MOUTH EVERY MOUTH DAY DAY EVERY DAY Klor-Con 10 Klor-Con 10 No Klor-Con [place] mEq mEq 10 mEq Communi tablet,exte tablet,exte tablet,ext ty nded nded ended Hospita release release release l TAKE 1 TAKE 1 TAKE 1 Clinics TABLET BY TABLET BY TABLET BY MOUTH EVERY MOUTH EVERY MOUTH DAY WITH DAY WITH EVERY DAY FOOD FOOD WITH FOOD levothyroxi levothyroxi No levothyrox [place] ne 112 mcg ne 112 mcg ine 112 Communi tablet TAKE tablet TAKE mcg tablet ty 1 TABLET BY 1 TABLET BY TAKE 1 Hospita MOUTH EVERY MOUTH EVERY TABLET BY l DAY DAY MOUTH Clinics EVERY DAY lidocaine 5 lidocaine 5 No lidocaine [place] % topical % topical 5 % Commu ni patch APPLY patch APPLY topical ty 1 PATCH BY 1 PATCH BY patch [facility] TOPICAL TOPICAL APPLY 1 l ROUTE ONCE ROUTE ONCE PATCH BY Clinics DAILY (MAY DAILY (MAY TOPICAL WEAR UP TO WEAR UP TO ROUTE ONCE 12HOURS.) 12HOURS.) DAILY (MAY WEAR UP TO 12HOURS.) liothyronin liothyronin No liothyroni [place] e 5 mcg e 5 mcg ne 5 mcg Commu ni tablet TAKE tablet TAKE tablet ty 2 TABS 2 TABS TAKE 2 Hospita TUES, TUES, TABS TUES, l THURS, SAT, THURS, SAT, THURS, Clinics SUN. TAKE 1 SUN. TAKE 1 SAT, SUN. TAB MON, TAB MON, TAKE 1 TAB TUE, Tue, Tue, WED, HALF HOUR HALF HOUR FRI HALF BEFORE BEFORE HOUR BREAKFAST BREAKFAST BEFORE WITH WATER WITH WATER BREAKFAST WITH WATER losartan 50 losartan 50 No losartan [place] mg tablet mg tablet 50 mg Comm uni TAKE 1 TAKE 1 tablet ty TABLET BY TABLET BY TAKE 1 [facility] MOUTH EVERY MOUTH EVERY TABLET BY l DAY FOR 90 DAY FOR 90 MOUTH Cl inics DAYS DAYS EVERY DAY FOR 90 DAYS mirtazapine mirtazapine No mirtazapin [place] 15 mg 15 mg e 15 mg Communi tablet TAKE tablet TAKE tablet ty 1 TABLET BY 1 TABLET BY TAKE 1 Hospita MOUTH MOUTH TABLET BY l EVERYDAY AT EVERYDAY AT MOUTH Clinics BEDTIME BEDTIME EVERYDAY AT BEDTIME mupirocin 2 mupirocin 2 No mupirocin [place] % topical % topical 2 % Commu [...] DAY NEEDED nitroglycer nitroglycer No 1 nitroglyce [place] in 0.4 mg in 0.4 mg rin 0.4 mg Communi sublingual sublingual sublingual ty tablet tablet tablet Hospita Place [address] 1 l tablet as tablet as tablet as Clinics needed by needed by needed by sublingual sublingual sublingual route. route. route. omeprazole omeprazole No omeprazole [place] 40 mg 40 mg 40 mg Communi [...] DAY l Clinics potassium potassium No potassium [place] chloride ER chloride ER chloride Communi 20 mEq 20 mEq ER 20 mEq ty tablet,exte tablet,exte tablet,ext Hospita nded nded ended l release(par release(par release(ri Clinics t/cryst) t/cryst) rt/cryst) TAKE 1 TAKE 1 TAKE 1 TABLET BY TABLET BY TABLET BY MOUTH EVERY MOUTH EVERY MOUTH DAY DAY EVERY DAY Santyl 250 Santyl 250 No Santyl 250 [place] unit/gram unit/gram unit/gram Communi topical topical topical ty ointment ointment ointment [facility] APPLY A APPLY A APPLY A l [facility] THICK THICK THICK AMOUNT TO AMOUNT TO AMOUNT TO WOUND 3 WOUND 3 WOUND 3 TIMES A TIMES A TIMES A WEEK WEEK WEEK sotalol 160 sotalol 160 No sotalol [place] mg tablet mg tablet 160 mg Com raz TAKE 1 TAKE 1 tablet ty TABLET BY TABLET BY TAKE 1 [facility] MOUTH EVERY MOUTH EVERY TABLET BY l 12 HOURS 12 HOURS MOUTH Clinic s FOR 90 DAYS FOR 90 DAYS EVERY 12 HOURS FOR 90 DAYS sotalol 80 sotalol 80 No sotalol 80 [place] mg tablet mg tablet mg tablet Communi TAKE 1 TAKE 1 TAKE 1 ty TABLET BY TABLET BY TABLET BY Hospita MOUTH EVERY MOUTH EVERY MOUTH l DAY DAY EVERY DAY Clinics tramadol 50 tramadol 50 No tramadol [place] mg tablet mg tablet 50 mg Comm uni TAKE 1 TAKE 1 tablet ty TABLET BY TABLET BY TAKE 1 [facility] MOUTH EVERY MOUTH EVERY TABLET BY l 12 HOURS 12 HOURS MOUTH Clinics NEEDED FOR NEEDED FOR EVERY 12 PAIN PAIN HOURS NEEDED FOR PAIN amlodipine amlodipine No amlodipine [place] 5 mg tablet 5 mg tablet 5 mg C [facility] TAKE 1 TAKE 1 tablet ty TABLET BY TABLET BY TAKE 1 [facility] MOUTH EVERY MOUTH EVERY TABLET BY l DAY FOR 90 DAY FOR 90 MOUTH Cl inics DAYS DAYS EVERY DAY FOR 90 DAYS atorvastati atorvastati No atorvastat [place] n 20 mg n 20 mg in 20 mg Commu ni tablet TAKE tablet TAKE tablet ty 1 TABLET BY 1 TABLET BY TAKE 1 Hospita MOUTH EVERY MOUTH EVERY TABLET BY l DAY DAY MOUTH Clinics EVERY DAY BD [place] 2nd BD [place] 2nd No BD Kalee [place] Gen Pen Gen Pen 2nd Gen Commun i Needle 32 Needle 32 Pen Needle ty gauge x gauge x 32 gauge x [facility] 5/32" USE 32" USE 5/32" USE l ONE TIME A ONE TIME A ONE TIME A Clinics DAY DAY DAY cholecalcif cholecalcif No cholecalci [place] ghada ghada ferol Communi (vitamin (vitamin (vitamin ty D3) 1,250 D3) 1,250 D3) 1,250 Hospita mcg (50,000 mcg (50,000 mcg l unit) unit) (50,000 Clinics capsule capsule unit) TAKE 1 TAKE 1 capsule CAPSULE BY CAPSULE BY TAKE 1 MOUTH EVERY MOUTH EVERY CAPSULE BY 15 DAYS 15 DAYS MOUTH EVERY 15 DAYS glipizide glipizide No glipizide [place] ER 2.5 mg ER 2.5 mg ER [...] BREAKFAST Humatrope 6 Humatrope 6 No Humatrope [place] mg (18 mg (18 6 mg (18 Communi unit) unit) unit) ty injection injection injection Hosp[facility] cartridge cartridge cartridge l INJECT INJECT INJECT [facility] 0.3MG 0.3MG 0.3MG SUBCUTANEOU SUBCUTANEOU SUBCUTANEO SLY ONCE A SLY ONCE A USLY ONCE DAY. DAY. A DAY. hydrocortis hydrocortis No hydrocorti [place] one 20 mg one 20 mg sone 20 mg Communi tablet TAKE tablet TAKE tablet ty 1 TABLET BY 1 TABLET BY TAKE 1 Hospita MOUTH WITH MOUTH WITH TABLET BY l BREAKFAST BREAKFAST MOUTH WITH Clinics AND 2 AND 2 BREAKFAST TABLETS TABLETS AND 2 WITH WITH TABLETS DINNER. DINNER. WITH DINNER. levothyroxi levothyroxi No levothyrox [place] ne 112 mcg ne 112 mcg ine 112 Communi tablet TAKE tablet TAKE mcg tablet ty 1 TABLET BY 1 TABLET BY TAKE 1 Hospita MOUTH DAILY MOUTH DAILY TABLET BY l 1/2 HOUR 1/2 HOUR MOUTH Clinic s BEFORE BEFORE DAILY 1/2 BREAKFAST BREAKFAST HOUR WITH WATER WITH WATER BEFORE BREAKFAST WITH WATER liothyronin liothyronin No liothyroni [place] e 5 mcg e 5 mcg ne 5 mcg Commu ni tablet TAKE tablet TAKE tablet ty 2 TABS BY 2 TABS BY TAKE 2 [facility] MOUTH TUES, MOUTH TUES, TABS BY l THURS, SAT, THURS, SAT, MOUTH Clinics SUN & 1 TAB SUN & 1 TAB TUES, MON, TUE, TUE, TUE, , FRI HALF HR FRI HALF HR SAT, SUN & BEFORE BEFORE 1 TAB MON, BREAKFAST BREAKFAST TUE, FRI WITH WATER WITH WATER HALF HR BEFORE BREAKFAST WITH WATER nitroglycer nitroglycer No 1 nitroglyce [place] in 0.4 mg in 0.4 mg rin 0.4 mg Communi sublingual sublingual sublingual ty tablet tablet tablet Hospita Place [address] 1 l tablet as tablet as tablet as Clinics needed by needed by needed by sublingual sublingual sublingual route. route. route. omeprazole omeprazole No omeprazole [place] 40 mg 40 mg 40 mg Communi capsule,del capsule,del capsule,de ty ayed ayed layed Hospita release release release l TAKE 1 TAKE 1 TAKE 1 Clinics CAPSULE BY CAPSULE BY CAPSULE BY MOUTH EVERY MOUTH EVERY MOUTH MORNING MORNING EVERY MORNING OneTouch OneTouch No OneTouch Swe maedleine [facility]i Lancet 30 Lancet 30 Plus ty gauge USE gauge USE Lancet 30 Hospita TO TEST 2 TO TEST 2 gauge USE l TIMES DAILY TIMES DAILY TO TEST 2 Clinics TIMES DAILY OneTouch OneTouch No OneTouch Swe madeleine Verio Flex Verio Flex Verio Flex Communi Meter FOR Meter FOR Meter FOR ty TESTING.1 TESTING.1 TESTING.1 Hospita BOX ICD 10 BOX ICD 10 BOX ICD 10 l E11.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.65 Clinics OneTouch OneTouch No OneTouch Swe madeleine Verio test Verio test Verio test Communi strips USE strips USE strips USE ty TO TEST 2 TO TEST 2 TO TEST 2 Hospita TIMES DAILY TIMES DAILY TIMES l DAILY Clinics potassium potassium No potassium [place] chloride ER chloride ER chloride Communi 10 mEq 10 mEq ER 10 mEq ty tablet,exte tablet,exte tablet,ext Hospita nded nded ended l release release release Clinic s TAKE 1 TAKE 1 TAKE 1 TABLET BY TABLET BY TABLET BY MOUTH EVERY MOUTH EVERY MOUTH DAY WITH DAY WITH EVERY DAY FOOD FOOD WITH FOOD tramadol 50 tramadol 50 No tramadol [place] mg tablet mg tablet 50 mg Comm uni TAKE 1 TAKE 1 tablet ty TABLET BY TABLET BY TAKE 1 [facility] MOUTH EVERY MOUTH EVERY TABLET BY l 12 HOURS 12 HOURS MOUTH Clinics NEEDED FOR NEEDED FOR EVERY 12 PAIN PAIN HOURS NEEDED FOR PAIN trazodone trazodone No 1 Q1D trazodone [place] 50 mg 50 mg 50 mg Communi tablet Take tablet Take tablet ty 1 tablet 1 tablet Take 1 Hospi ta every day every day tablet l by oral by oral every day Clin ics route. route. by oral route. amlodipine amlodipine No amlodipine [place] 5 mg tablet 5 mg tablet 5 mg C [facility] TAKE 1 TAKE 1 tablet ty TABLET BY TABLET BY TAKE 1 [facility] MOUTH EVERY MOUTH EVERY TABLET BY l DAY FOR 90 DAY FOR 90 MOUTH Cl inics DAYS DAYS EVERY DAY FOR 90 DAYS atorvastati atorvastati No atorvastat [place] n 20 mg n 20 mg in 20 mg Commu ni tablet TAKE tablet TAKE tablet ty 1 TABLET BY 1 TABLET BY TAKE 1 Hospita MOUTH EVERY MOUTH EVERY TABLET BY l DAY DAY MOUTH Clinics EVERY DAY BD [place] 2nd BD [place] 2nd No BD Kalee [place] Gen Pen Gen Pen 2nd Gen Commun i Needle 32 Needle 32 Pen Needle ty gauge x gauge x 32 gauge x [facility] " USE " USE " USE l ONE TIME A ONE TIME A ONE TIME A Clinics DAY DAY DAY cholecalcif cholecalcif No cholecalci [place] ghada ghada ferol Communi (vitamin (vitamin (vitamin ty D3) 1,250 D3) 1,250 D3) 1,250 Hospita mcg (50,000 mcg (50,000 mcg l unit) unit) (50,000 Clinics capsule capsule unit) TAKE 1 TAKE 1 capsule CAPSULE BY CAPSULE BY TAKE 1 MOUTH EVERY MOUTH EVERY CAPSULE BY 15 DAYS 15 DAYS MOUTH EVERY 15 DAYS glipizide glipizide No glipizide [place] ER 2.5 mg ER 2.5 mg ER [...] BREAKFAST Humatrope 6 Humatrope 6 No Humatrope [place] mg (18 mg (18 6 mg (18 Communi unit) unit) unit) ty injection injection injection [facility] cartridge cartridge cartridge l INJECT INJECT INJECT [facility] 0.3MG 0.3MG 0.3MG SUBCUTANEOU SUBCUTANEOU SUBCUTANEO SLY ONCE A SLY ONCE A USLY ONCE DAY. DAY. A DAY. hydrocortis hydrocortis No hydrocorti [place] one 20 mg one 20 mg sone 20 mg Communi tablet TAKE tablet TAKE tablet ty 1 TABLET BY 1 TABLET BY TAKE 1 Hospita MOUTH WITH MOUTH WITH TABLET BY l BREAKFAST BREAKFAST MOUTH WITH Clinics AND 2 AND 2 BREAKFAST TABLETS TABLETS AND 2 WITH WITH TABLETS DINNER. DINNER. WITH DINNER. levothyroxi levothyroxi No levothyrox [place] ne 112 mcg ne 112 mcg ine 112 Communi tablet TAKE tablet TAKE mcg tablet ty 1 TABLET BY 1 TABLET BY TAKE 1 Hospita MOUTH DAILY MOUTH DAILY TABLET BY l 1/2 HOUR 1/2 HOUR MOUTH Clinic s BEFORE BEFORE DAILY 1/2 BREAKFAST BREAKFAST HOUR WITH WATER WITH WATER BEFORE BREAKFAST WITH WATER liothyronin liothyronin No liothyroni [place] e 5 mcg e 5 mcg ne 5 mcg Commu ni tablet TAKE tablet TAKE tablet ty 2 TABS BY 2 TABS BY TAKE 2 [facility] MOUTH TUES, MOUTH TUES, TABS BY l THURS, SAT, THURS, SAT, MOUTH Clinics SUN & 1 TAB SUN & 1 TAB TUES, MON, TUE, TUE, WED, TH, FRI HALF HR FRI HALF HR SAT, SUN & BEFORE BEFORE 1 TAB MON, BREAKFAST BREAKFAST WED, FRI WITH WATER WITH WATER HALF HR BEFORE BREAKFAST WITH WATER nitroglycer nitroglycer No 1 nitroglyce [place] in 0.4 mg in 0.4 mg rin 0.4 mg Communi sublingual sublingual sublingual ty tablet tablet tablet Hospita Place [address] 1 l tablet as tablet as tablet as Clinics needed by needed by needed by sublingual sublingual sublingual route. route. route. omeprazole omeprazole No omeprazole [place] 40 mg 40 mg 40 mg Communi capsule,del capsule,del capsule,de ty ayed ayed layed Hospita release release release l TAKE 1 TAKE 1 TAKE 1 Clinics CAPSULE BY CAPSULE BY CAPSULE BY MOUTH EVERY MOUTH EVERY MOUTH MORNING MORNING EVERY MORNING OneTouch OneTouch No OneTouch Swe madeleine [facility]i Lancet 30 Lancet 30 Plus ty gauge USE gauge USE Lancet 30 Hospita TO TEST 2 TO TEST 2 gauge USE l TIMES DAILY TIMES DAILY TO TEST 2 Clinics TIMES DAILY OneTouch OneTouch No OneTouch Swe madeleine Verio Flex Verio Flex Verio Flex Communi Meter FOR Meter FOR Meter FOR ty TESTING.1 TESTING.1 TESTING.1 Hospita BOX ICD 10 BOX ICD 10 BOX ICD 10 l E11.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.65 Clinics OneTouch OneTouch No OneTouch Swe madeleine Verio test Verio test Verio test Communi strips USE strips USE strips USE ty TO TEST 2 TO TEST 2 TO TEST 2 Hospita TIMES DAILY TIMES DAILY TIMES l DAILY Clinics potassium potassium No potassium [place] chloride ER chloride ER chloride Communi 10 mEq 10 mEq ER 10 mEq ty tablet,exte tablet,exte tablet,ext Hospita nded nded ended l release release release Clinic s TAKE 1 TAKE 1 TAKE 1 TABLET BY TABLET BY TABLET BY MOUTH EVERY MOUTH EVERY MOUTH DAY WITH DAY WITH EVERY DAY FOOD FOOD WITH FOOD tizanidine tizanidine No 1 Q1D tizanidine [place] 2 mg tablet 2 mg tablet 2 mg C om[facility]i Take 1 Take 1 tablet ty tablet tablet Take 1 Hospita every day every day tablet l by oral by oral every day Clin ics route. route. by oral route. tramadol 50 tramadol 50 No tramadol [place] mg tablet mg tablet 50 mg Comm uni TAKE 1 TAKE 1 tablet ty TABLET BY TABLET BY TAKE 1 [facility] MOUTH EVERY MOUTH EVERY TABLET BY l 12 HOURS 12 HOURS MOUTH Clinics NEEDED FOR NEEDED FOR EVERY 12 PAIN PAIN HOURS NEEDED FOR PAIN trazodone trazodone No trazodone [place] 50 mg 50 mg 50 mg Communi tablet TAKE tablet TAKE tablet ty 1 TABLET BY 1 TABLET BY TAKE 1 Hospita MOUTH EVERY MOUTH EVERY TABLET BY l DAY DAY MOUTH Clinics EVERY DAY amlodipine amlodipine No amlodipine [place] 5 mg tablet 5 mg tablet 5 mg C [facility] TAKE 1 TAKE 1 tablet ty TABLET BY TABLET BY TAKE 1 [facility] MOUTH EVERY MOUTH EVERY TABLET BY l DAY FOR 90 DAY FOR 90 MOUTH Cl inics DAYS DAYS EVERY DAY FOR 90 DAYS atorvastati atorvastati No atorvastat [place] n 20 mg n 20 mg in 20 mg Commu ni tablet TAKE tablet TAKE tablet ty 1 TABLET BY 1 TABLET BY TAKE 1 Hospita MOUTH EVERY MOUTH EVERY TABLET BY l DAY DAY MOUTH Clinics EVERY DAY BD Kalee 2nd BD Kalee 2nd No BD Kalee [place] Gen Pen Gen Pen 2nd Gen Commun i Needle 32 Needle 32 Pen Needle ty gauge x gauge x 32 gauge x [facility] 5/32" USE 32" USE 32" USE l ONE TIME A ONE TIME A ONE TIME A Clinics DAY DAY DAY cholecalcif cholecalcif No cholecalci [place] ghada ghada ferol Communi (vitamin (vitamin (vitamin ty D3) 1,250 D3) 1,250 D3) 1,250 Hospita mcg (50,000 mcg (50,000 mcg l unit) unit) (50,000 Clinics capsule capsule unit) TAKE 1 TAKE 1 capsule CAPSULE BY CAPSULE BY TAKE 1 MOUTH EVERY MOUTH EVERY CAPSULE BY 15 DAYS 15 DAYS MOUTH EVERY 15 DAYS glipizide glipizide No glipizide [place] ER 2.5 mg ER 2.5 mg ER [...] BREAKFAST Humatrope 6 Humatrope 6 No Humatrope [place] mg (18 mg (18 6 mg (18 Communi unit) unit) unit) ty injection injection injection [facility] cartridge cartridge cartridge l INJECT INJECT INJECT [facility] 0.3MG 0.3MG 0.3MG SUBCUTANEOU SUBCUTANEOU SUBCUTANEO SLY ONCE A SLY ONCE A USLY ONCE DAY. DAY. A DAY. hydrocortis hydrocortis No hydrocorti [place] one 20 mg one 20 mg sone 20 mg Communi tablet TAKE tablet TAKE tablet ty 1 TABLET BY 1 TABLET BY TAKE 1 Hospita MOUTH WITH MOUTH WITH TABLET BY l BREAKFAST BREAKFAST MOUTH WITH Clinics AND 2 AND 2 BREAKFAST TABLETS TABLETS AND 2 WITH WITH TABLETS DINNER. DINNER. WITH DINNER. levothyroxi levothyroxi No levothyrox [place] ne 112 mcg ne 112 mcg ine 112 Communi tablet TAKE tablet TAKE mcg tablet ty 1 TABLET BY 1 TABLET BY TAKE 1 Hospita MOUTH DAILY MOUTH DAILY TABLET BY l 1/2 HOUR 1/2 HOUR MOUTH Clinic s BEFORE BEFORE DAILY 1/2 BREAKFAST BREAKFAST HOUR WITH WATER WITH WATER BEFORE BREAKFAST WITH WATER liothyronin liothyronin No liothyroni [place] e 5 mcg e 5 mcg ne 5 mcg Commu ni tablet TAKE tablet TAKE tablet ty 2 TABS BY 2 TABS BY TAKE 2 [facility] MOUTH TUES, MOUTH TUES, TABS BY l THURS, SAT, THURS, SAT, MOUTH Clinics SUN & 1 TAB SUN & 1 TAB TUES, MON, WED, MON, WED, TH, FRI HALF HR FRI HALF HR SAT, SUN & BEFORE BEFORE 1 TAB MON, BREAKFAST BREAKFAST TUE, FRI WITH WATER WITH WATER HALF HR BEFORE BREAKFAST WITH WATER nitroglycer nitroglycer No 1 nitroglyce [place] in 0.4 mg in 0.4 mg rin 0.4 mg Communi sublingual sublingual sublingual ty tablet tablet tablet Hospita Place [address] 1 l tablet as tablet as tablet as Clinics needed by needed by needed by sublingual sublingual sublingual route. route. route. omeprazole omeprazole No omeprazole [place] 40 mg 40 mg 40 mg Communi capsule,del capsule,del capsule,de ty ayed ayed layed Hospita release release release l TAKE 1 TAKE 1 TAKE 1 Clinics CAPSULE BY CAPSULE BY CAPSULE BY MOUTH EVERY MOUTH EVERY MOUTH MORNING MORNING EVERY MORNING OneTouch OneTouch No OneTouch Swe madeleine Del[facility] Plus [facility] Plus [facility] Communi Lancet 30 Lancet 30 Plus ty gauge USE gauge USE Lancet 30 Hospita TO TEST 2 TO TEST 2 gauge USE l TIMES DAILY TIMES DAILY TO TEST 2 Clinics TIMES DAILY OneTouch OneTouch No OneTouch Swe madeleine Verio Flex Verio Flex Verio Flex Communi Meter FOR Meter FOR Meter FOR ty TESTING.1 TESTING.1 TESTING.1 Hospita BOX ICD 10 BOX ICD 10 BOX ICD 10 l E11.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.65 Clinics OneTouch OneTouch No OneTouch Swe madeleine Verio test Verio test Verio test [facility] strips USE strips USE strips USE ty TO TEST 2 TO TEST 2 TO TEST 2 Hospita TIMES DAILY TIMES DAILY TIMES l DAILY Clinics potassium potassium No potassium [place] chloride ER chloride ER chloride Communi 10 mEq 10 mEq ER 10 mEq ty tablet,exte tablet,exte tablet,ext Hospita nded nded ended l release release release Clinic s TAKE 1 TAKE 1 TAKE 1 TABLET BY TABLET BY TABLET BY MOUTH EVERY MOUTH EVERY MOUTH DAY WITH DAY WITH EVERY DAY FOOD FOOD WITH FOOD tizanidine tizanidine No 1 Q1D tizanidine [place] 2 mg tablet 2 mg tablet 2 mg C om[facility]i Take 1 Take 1 tablet ty tablet tablet Take 1 Hospita every day every day tablet l by oral by oral every day Clin ics route. route. by oral route. tramadol 50 tramadol 50 No tramadol [place] mg tablet mg tablet 50 mg Comm uni TAKE 1 TAKE 1 tablet ty TABLET BY TABLET BY TAKE 1 [facility] MOUTH EVERY MOUTH EVERY TABLET BY l 12 HOURS 12 HOURS MOUTH Clinics NEEDED FOR NEEDED FOR EVERY 12 PAIN PAIN HOURS NEEDED FOR PAIN trazodone trazodone No 1 Q1D trazodone [place] 100 mg 100 mg 100 mg Communi tablet Take tablet Take tablet ty 1 tablet 1 tablet Take 1 Hospi ta every day every day tablet l by oral by oral every day Clin ics route at route at by oral bedtime for bedtime for route at 30 days. 30 days. bedtime for 30 days. trazodone trazodone No trazodone [place] 50 mg 50 mg 50 mg Communi tablet TAKE tablet TAKE tablet ty 1 TABLET BY 1 TABLET BY TAKE 1 Hospita MOUTH EVERY MOUTH EVERY TABLET BY l DAY DAY MOUTH Clinics EVERY DAY amlodipine amlodipine No amlodipine [place] 5 mg tablet 5 mg tablet 5 mg C om[facility]i TAKE 1 TAKE 1 tablet ty TABLET BY TABLET BY TAKE 1 [facility] MOUTH EVERY MOUTH EVERY TABLET BY l DAY FOR 90 DAY FOR 90 MOUTH Cl inics DAYS DAYS EVERY DAY FOR 90 DAYS atorvastati atorvastati No atorvastat [place] n 20 mg n 20 mg in 20 mg Commu ni tablet TAKE tablet TAKE tablet ty 1 TABLET BY 1 TABLET BY TAKE 1 Hospita MOUTH EVERY MOUTH EVERY TABLET BY l DAY DAY MOUTH Clinics EVERY DAY BD Kalee 2nd BD Kalee 2nd No BD Kalee [place] Gen Pen Gen Pen 2nd Gen Commun i Needle 32 Needle 32 Pen Needle ty gauge x gauge x 32 gauge x Hos m[facility] " USE " USE " USE l ONE TIME A ONE TIME A ONE TIME A Clinics DAY DAY DAY cholecalcif cholecalcif No cholecalci [place] ghada ghada ferol Communi (vitamin (vitamin (vitamin ty D3) 1,250 D3) 1,250 D3) 1,250 Hospita mcg (50,000 mcg (50,000 mcg l unit) unit) (50,000 Clinics capsule capsule unit) TAKE 1 TAKE 1 capsule CAPSULE BY CAPSULE BY TAKE 1 MOUTH EVERY MOUTH EVERY CAPSULE BY 15 DAYS 15 DAYS MOUTH EVERY 15 DAYS glipizide glipizide No glipizide [place] ER 2.5 mg ER 2.5 mg ER [...] BREAKFAST Humatrope 6 Humatrope 6 No Humatrope [place] mg (18 mg (18 6 mg (18 Communi unit) unit) unit) ty injection injection injection [facility] cartridge cartridge cartridge l INJECT INJECT INJECT [facility] 0.3MG 0.3MG 0.3MG SUBCUTANEOU SUBCUTANEOU SUBCUTANEO SLY ONCE A SLY ONCE A USLY ONCE DAY. DAY. A DAY. hydrocortis hydrocortis No hydrocorti [place] one 20 mg one 20 mg sone 20 mg Communi tablet TAKE tablet TAKE tablet ty 1 TABLET BY 1 TABLET BY TAKE 1 Hospita MOUTH WITH MOUTH WITH TABLET BY l BREAKFAST BREAKFAST MOUTH WITH Clinics AND 2 AND 2 BREAKFAST TABLETS TABLETS AND 2 WITH WITH TABLETS DINNER. DINNER. WITH DINNER. levothyroxi levothyroxi No levothyrox [place] ne 112 mcg ne 112 mcg ine 112 Communi tablet TAKE tablet TAKE mcg tablet ty 1 TABLET BY 1 TABLET BY TAKE 1 Hospita MOUTH DAILY MOUTH DAILY TABLET BY l 1/2 HOUR 1/2 HOUR MOUTH Clinic s BEFORE BEFORE DAILY 1/2 BREAKFAST BREAKFAST HOUR WITH WATER WITH WATER BEFORE BREAKFAST WITH WATER liothyronin liothyronin No liothyroni [place] e 5 mcg e 5 mcg ne 5 mcg Commu ni tablet TAKE tablet TAKE tablet ty 2 TABS BY 2 TABS BY TAKE 2 [facility] MOUTH TUES, MOUTH TUES, TABS BY l THURS, SAT, THURS, SAT, MOUTH Clinics SUN & 1 TAB SUN & 1 TAB TU, MON, TUE, MON, WED, TH, FRI HALF HR FRI HALF HR SAT, SUN & BEFORE BEFORE 1 TAB MON, BREAKFAST BREAKFAST TUE, FRI WITH WATER WITH WATER HALF HR BEFORE BREAKFAST WITH WATER nitroglycer nitroglycer No 1 nitroglyce [place] in 0.4 mg in 0.4 mg rin 0.4 mg Communi sublingual sublingual sublingual ty tablet tablet tablet Hospita Place [address] 1 l tablet as tablet as tablet as Clinics needed by needed by needed by sublingual sublingual sublingual route. route. route. omeprazole omeprazole No omeprazole [place] 40 mg 40 mg 40 mg Communi capsule,del capsule,del capsule,de ty ayed ayed layed Hospita release release release l TAKE 1 TAKE 1 TAKE 1 Clinics CAPSULE BY CAPSULE BY CAPSULE BY MOUTH EVERY MOUTH EVERY MOUTH MORNING MORNING EVERY MORNING OneTouch OneTouch No OneTouch Swe madeleine [facility] Plus [facility] Plus [facility]i Lancet 30 Lancet 30 Plus ty gauge USE gauge USE Lancet 30 Hospita TO TEST 2 TO TEST 2 gauge USE l TIMES DAILY TIMES DAILY TO TEST 2 Clinics TIMES DAILY OneTouch OneTouch No OneTouch Swe madeleine Verio Flex Verio Flex Verio Flex Communi Meter FOR Meter FOR Meter FOR ty TESTING.1 TESTING.1 TESTING.1 Hospita BOX ICD 10 BOX ICD 10 BOX ICD 10 l E11.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.65 Clinics OneTouch OneTouch No OneTouch Swe madeleine Verio test Verio test Verio test Communi strips USE strips USE strips USE ty TO TEST 2 TO TEST 2 TO TEST 2 Hospita TIMES DAILY TIMES DAILY TIMES l DAILY Clinics potassium potassium No potassium [place] chloride ER chloride ER chloride Communi 10 mEq 10 mEq ER 10 mEq ty tablet,exte tablet,exte tablet,ext Hospita nded nded ended l release release release Clinic s TAKE 1 TAKE 1 TAKE 1 TABLET BY TABLET BY TABLET BY MOUTH EVERY MOUTH EVERY MOUTH DAY WITH DAY WITH EVERY DAY FOOD FOOD WITH FOOD tramadol 50 tramadol 50 No tramadol [place] mg tablet mg tablet 50 mg Comm uni TAKE 1 TAKE 1 tablet ty TABLET BY TABLET BY TAKE 1 [facility] MOUTH EVERY MOUTH EVERY TABLET BY l 12 HOURS 12 HOURS MOUTH Clinics NEEDED FOR NEEDED FOR EVERY 12 PAIN PAIN HOURS NEEDED FOR PAIN amlodipine amlodipine No amlodipine [place] 5 mg tablet 5 mg tablet 5 mg C om[facility]i 1 po qd 1 po qd tablet 1 ty po qd Hospita l Clinics amlodipine amlodipine No amlodipine [place] 5 mg tablet 5 mg tablet 5 mg C [facility]i TAKE 1 TAKE 1 tablet ty TABLET BY TABLET BY TAKE 1 [facility] MOUTH EVERY MOUTH EVERY TABLET BY l DAY FOR 90 DAY FOR 90 MOUTH Cl inics DAYS DAYS EVERY DAY FOR 90 DAYS atorvastati atorvastati No atorvastat [place] n 20 mg n 20 mg in 20 mg Commu ni tablet TAKE tablet TAKE tablet ty 1 TABLET BY 1 TABLET BY TAKE 1 Hospita MOUTH EVERY MOUTH EVERY TABLET BY l DAY DAY MOUTH Clinics EVERY DAY BD Kalee 2nd BD Kalee 2nd No BD Kalee [place] Gen Pen Gen Pen 2nd Gen Commun i Needle 32 Needle 32 Pen Needle ty gauge x gauge x 32 gauge x [facility] 5/32" USE 5/32" USE 5/32" USE l ONE TIME A ONE TIME A ONE TIME A Clinics DAY DAY DAY cholecalcif cholecalcif No cholecalci [place] ghada ghada ferol Communi (vitamin (vitamin (vitamin ty D3) 1,250 D3) 1,250 D3) 1,250 Hospita mcg (50,000 mcg (50,000 mcg l unit) unit) (50,000 Clinics capsule capsule unit) TAKE 1 TAKE 1 capsule CAPSULE BY CAPSULE BY TAKE 1 MOUTH EVERY MOUTH EVERY CAPSULE BY 15 DAYS 15 DAYS MOUTH EVERY 15 DAYS glipizide glipizide No glipizide [place] ER 2.5 mg ER 2.5 mg ER [...] BREAKFAST Humatrope 6 Humatrope 6 No Humatrope [place] mg (18 mg (18 6 mg (18 Communi unit) unit) unit) ty injection injection injection [facility] cartridge cartridge cartridge l INJECT INJECT INJECT Clinics 0.3MG 0.3MG 0.3MG SUBCUTANEOU SUBCUTANEOU SUBCUTANEO SLY ONCE A SLY ONCE A USLY ONCE DAY. DAY. A DAY. hydrocortis hydrocortis No hydrocorti [place] one 20 mg one 20 mg sone 20 mg Communi tablet TAKE tablet TAKE tablet ty 1 TABLET BY 1 TABLET BY TAKE 1 Hospita MOUTH WITH MOUTH WITH TABLET BY l BREAKFAST BREAKFAST MOUTH WITH Clinics AND 2 AND 2 BREAKFAST TABLETS TABLETS AND 2 WITH WITH TABLETS DINNER. DINNER. WITH DINNER. levothyroxi levothyroxi No levothyrox [place] ne 112 mcg ne 112 mcg ine 112 Communi tablet TAKE tablet TAKE mcg tablet ty 1 TABLET BY 1 TABLET BY TAKE 1 Hospita MOUTH DAILY MOUTH DAILY TABLET BY l 1/2 HOUR 1/2 HOUR MOUTH Clinic s BEFORE BEFORE DAILY 1/2 BREAKFAST BREAKFAST HOUR WITH WATER WITH WATER BEFORE BREAKFAST WITH WATER atorvastati atorvastati No atorvastat [place] n 40 mg n 40 mg in 40 mg Commu ni tablet 1 PO tablet 1 PO tablet 1 ty qd qd PO qd Hospita l Clinics liothyronin liothyronin No liothyroni [place] e 5 mcg e 5 mcg ne 5 mcg Commu ni tablet TAKE tablet TAKE tablet ty 2 TABS BY 2 TABS BY TAKE 2 [facility] MOUTH TUES, MOUTH TUES, TABS BY l THURS, SAT, THURS, SAT, MOUTH Clinics SUN & 1 TAB SUN & 1 TAB TU, TUE, TUE, TUE, TUE, , FRI HALF HR FRI HALF HR SAT, SUN & BEFORE BEFORE 1 TAB MON, BREAKFAST BREAKFAST WED, FRI WITH WATER WITH WATER HALF HR BEFORE BREAKFAST WITH WATER nitroglycer nitroglycer No 1 nitroglyce [place] in 0.4 mg in 0.4 mg rin 0.4 mg Communi sublingual sublingual sublingual ty tablet [facility] [address] 1 l tablet as tablet as tablet as Clinics needed by needed by needed by sublingual sublingual sublingual route. route. route. omeprazole omeprazole No omeprazole [place] 40 mg 40 mg 40 mg Communi capsule,del capsule,del capsule,de ty ayed ayed layed Hospita release release release l TAKE 1 TAKE 1 TAKE 1 Clinics CAPSULE BY CAPSULE BY CAPSULE BY MOUTH EVERY MOUTH EVERY MOUTH MORNING MORNING EVERY MORNING OneTouch OneTouch No OneTouch Swe madeleine [facility] Plus [facility] Lancet 30 Lancet 30 Plus ty gauge USE gauge USE Lancet 30 Hospita TO TEST 2 TO TEST 2 gauge USE l TIMES DAILY TIMES DAILY TO TEST 2 Clinics TIMES DAILY OneTouch OneTouch No OneTouch Swe madeleine Verio Flex Verio Flex Verio Flex [facility] Meter FOR Meter FOR Meter FOR ty TESTING.1 TESTING.1 TESTING.1 Hospita BOX ICD 10 BOX ICD 10 BOX ICD 10 l E11.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.65 Clinics OneTouch OneTouch No OneTouch Swe madeleine Verio test Verio test Verio test [facility] strips USE strips USE strips USE ty TO TEST 2 TO TEST 2 TO TEST 2 Hospita TIMES DAILY TIMES DAILY TIMES l DAILY Clinics potassium potassium No potassium [place] chloride ER chloride ER chloride Communi 10 mEq 10 mEq ER 10 mEq ty tablet,exte tablet,exte tablet,ext Hospita nded nded ended l release release release Clinic s TAKE 1 TAKE 1 TAKE 1 TABLET BY TABLET BY TABLET BY MOUTH EVERY MOUTH EVERY MOUTH DAY WITH DAY WITH EVERY DAY FOOD FOOD WITH FOOD ramelteon 8 ramelteon 8 No 1 Q1D ramelteon [place] mg tablet mg tablet 8 mg Commu ni Take 1 Take 1 tablet ty tablet tablet Take 1 Hospita every day every day tablet l by oral by oral every day Clin ics route. route. by oral route. tramadol 50 tramadol 50 No tramadol [place] mg tablet mg tablet 50 mg Comm uni TAKE 1 TAKE 1 tablet ty TABLET BY TABLET BY TAKE 1 [facility] MOUTH EVERY MOUTH EVERY TABLET BY l 12 HOURS 12 HOURS MOUTH Clinics NEEDED FOR NEEDED FOR EVERY 12 PAIN PAIN HOURS NEEDED FOR PAIN cholecalcif cholecalcif No cholecalci [place] ghada ghada ferol Communi (vitamin (vitamin (vitamin ty D3) 1,250 D3) 1,250 D3) 1,250 Hospita mcg (50,000 mcg (50,000 mcg l unit) unit) (50,000 Clinics capsule capsule unit) TAKE 1 TAKE 1 capsule CAPSULE CAPSULE TAKE 1 EVERY 15 EVERY 15 CAPSULE DAYS DAYS EVERY 15 DAYS clonazepam clonazepam No clonazepam [place] 0.5 mg 0.5 mg 0.5 mg Communi tablet TAKE tablet TAKE tablet ty 1 TABLET BY 1 TABLET BY TAKE 1 Hospita MOUTH TWICE MOUTH TWICE TABLET BY l A DAY A DAY MOUTH Clinic s DIRECTED DIRECTED TWICE A DAY DIRECTED Dexilant 60 Dexilant 60 No Dexilant [place] mg capsule, mg capsule, 60 mg Communi [...] DAY EVERY DAY fenofibrate fenofibrate No fenofibrat [place] nanocrystal nanocrystal e C om[facility]i lized 145 lized 145 nanocrysta ty mg tablet mg tablet llized 145 Hospita TAKE 1 TAKE 1 mg tablet l TABLET BY TABLET BY TAKE 1 Cli nics MOUTH EVERY MOUTH EVERY TABLET BY DAY DAILY DAY DAILY MOUTH ORALLY 90 ORALLY 90 EVERY DAY DAILY ORALLY 90 glipizide glipizide No glipizide [place] ER 2.5 mg ER 2.5 mg ER [...] TAB Tue FRI hydrocortis hydrocortis No hydrocorti [place] one 20 mg one 20 mg sone [...] PM Klor-Con 10 Klor-Con 10 No Klor-Con [place] mEq mEq 10 mEq Communi tablet,exte tablet,exte tablet,ext ty nded nded ended [facility] release 1 release 1 release 1 l po qd po qd po qd [facility] levothyroxi levothyroxi No levothyrox [place] ne 112 mcg ne 112 mcg ine 112 Communi tablet tablet mcg tablet ty [facility] levothyroxi levothyroxi No levothyrox [place] ne 125 mcg ne 125 mcg ine 125 Communi tablet 1 po tablet 1 po mcg tablet ty qd qd 1 po qd [facility] liothyronin liothyronin No liothyroni [place] e 5 mcg e 5 mcg ne 5 mcg Commu ni tablet 2 tablet 2 tablet 2 ty TABS TUES, TABS [facility], [facility], THURS, SAT, THURS, l SUN. [...] tablet 1 ty qd qd po qd [facility] losartan 50 losartan 50 No losartan [place] mg tablet mg tablet 50 mg Comm uni tablet ty [facility] methscopola methscopola No methscopol [place] mine 5 mg mine 5 mg amine 5 mg Communi tablet TAKE tablet TAKE tablet ty 1 TABLET BY 1 TABLET BY TAKE 1 [facility] MOUTH EVERY MOUTH EVERY TABLET BY l DAY DAY MOUTH Clinics EVERY DAY nitroglycer nitroglycer No 1 nitroglyce [place] in 0.4 mg in 0.4 mg rin 0.4 mg Communi sublingual sublingual sublingual ty tablet tablet tablet [facility] Place [address] 1 l tablet as tablet as tablet as Clinics needed by needed by needed by sublingual sublingual sublingual route. route. route. Omnitrope 5 Omnitrope 5 No Omnitrope [place] mg/1.5 mL mg/1.5 mL 5 mg/1.5 C om[facility]i (3.3 mg/mL) (3.3 mg/mL) mL (3.3 ty subcutaneou subcutaneou mg/mL) [facility] s cartridge s cartridge subcutaneo l 1 SC daily 1 SC daily us Cli nics cartridge 1 SC daily OneTouch OneTouch No OneTouch Swe madeleine Delica Delica Delica Communi Lancets 30 Lancets 30 Lancets 30 ty gauge TEST gauge TEST gauge [facility] TWICE A DAY TWICE [...] A DAY TEST TWICE Hospita A DAY [facility] sotalol 160 sotalol 160 No sotalol [place] mg tablet 1 mg tablet 1 [facility] tablet 1 ty po bid [facility] sotalol 80 sotalol 80 No sotalol 80 [place] mg tablet mg tablet mg tablet Communi ty [facility] warfarin 1 warfarin 1 No warfarin 1 [place] mg tablet mg tablet mg tablet Communi ty [facility] warfarin 2 warfarin 2 No warfarin 2 [place] mg tablet mg tablet mg tablet Communi [...] by oral route. amlodipine amlodipine No amlodipine [place] 5 mg tablet 5 mg tablet 5 mg C om[facility]i TAKE 1 TAKE 1 tablet ty TABLET BY TABLET BY TAKE 1 [facility] MOUTH EVERY MOUTH EVERY TABLET BY l DAY DAY MOUTH Clinics EVERY DAY atorvastati atorvastati No atorvastat [place] n 40 mg n 40 mg in 40 mg Commu ni tablet TAKE tablet TAKE tablet ty 1 TABLET BY 1 TABLET BY TAKE 1 Hospita MOUTH EVERY MOUTH EVERY TABLET BY l DAY DAY MOUTH Clinics EVERY DAY BD BD No BD [place] Ultra-Fine Ultra-Fine Ultra-Fine Communi Kalee Pen Kalee Pen [place]alee Pen ty Needle 32 Needle 32 Needle 32 Hospita gauge x gauge x gauge x l " " " Clinics cholecalcif cholecalcif No cholecalci [place] ghada ghada ferol Communi (vitamin (vitamin (vitamin ty D3) 1,250 D3) 1,250 D3) 1,250 Hospita mcg (50,000 mcg (50,000 mcg l unit) unit) (50,000 Clinics capsule capsule unit) TAKE 1 TAKE 1 capsule CAPSULE CAPSULE TAKE 1 EVERY 15 EVERY 15 CAPSULE DAYS DAYS EVERY 15 DAYS clonazepam clonazepam No clonazepam [place] 0.5 mg 0.5 mg 0.5 mg Communi tablet TAKE tablet TAKE tablet ty 1 TABLET BY 1 TABLET BY TAKE 1 Hospita MOUTH TWICE MOUTH TWICE TABLET BY l A DAY A DAY MOUTH Clinic s DIRECTED DIRECTED TWICE A DAY DIRECTED Dexilant 60 Dexilant 60 No Dexilant [place] mg capsule, mg capsule, 60 mg Communi [...] DAY EVERY DAY fenofibrate fenofibrate No fenofibrat [place] nanocrystal nanocrystal e C ommuni lized 145 lized 145 nanocrysta ty mg tablet mg tablet llized 145 Hospita TAKE 1 TAKE 1 mg tablet l TABLET BY TABLET BY TAKE 1 Cli nics MOUTH EVERY MOUTH EVERY TABLET BY DAY DAILY DAY DAILY MOUTH ORALLY 90 ORALLY 90 EVERY DAY DAILY ORALLY 90 glipizide glipizide No glipizide [place] ER 2.5 mg ER 2.5 mg ER [...] TAB Tue FRI hydrocortis hydrocortis No hydrocorti [place] one 20 mg one 20 mg sone [...] PM Klor-Con 10 Klor-Con 10 No Klor-Con [place] mEq mEq 10 mEq Communi tablet,exte tablet,exte tablet,ext ty nded nded ended Hospita release 1 release 1 release 1 l po qd po qd po qd [facility] levothyroxi levothyroxi No levothyrox [place] ne 112 mcg ne 112 mcg ine 112 Communi tablet tablet mcg tablet ty [facility] levothyroxi levothyroxi No levothyrox [place] ne 125 mcg ne 125 mcg ine 125 Communi tablet 1 po tablet 1 po mcg tablet ty qd qd 1 po qd [facility] liothyronin liothyronin No liothyroni [place] e 5 mcg e 5 mcg ne [...] tablet 1 ty qd qd po qd [facility] losartan 50 losartan 50 No losartan [place] mg tablet mg tablet 50 mg Comm uni tablet ty [facility] methscopola methscopola No methscopol [place] mine 5 mg mine 5 mg amine 5 mg Communi tablet TAKE tablet TAKE tablet ty 1 TABLET BY 1 TABLET BY TAKE 1 [facility] MOUTH EVERY MOUTH EVERY TABLET BY l DAY DAY MOUTH Clinics EVERY DAY nitroglycer nitroglycer No 1 nitroglyce [place] in 0.4 mg in 0.4 mg rin 0.4 mg Communi sublingual sublingual sublingual ty tablet tablet tablet [facility] Place [address] 1 l tablet as tablet as tablet as Clinics needed by needed by needed by sublingual sublingual sublingual route. route. route. Omnitrope 5 Omnitrope 5 No Omnitrope [place] mg/1.5 mL mg/1.5 mL 5 mg/1.5 C om[facility]i (3.3 mg/mL) (3.3 mg/mL) mL (3.3 ty subcutaneou subcutaneou mg/mL) [facility] cartridge subcutaneo l 1 SC daily 1 SC daily us Cli nics cartridge 1 SC daily OneTouch OneTouch No OneTouch Swe madeleine Delica Delica Del[facility] Communi Lancets 30 Lancets 30 Lancets 30 ty gauge TEST gauge TEST gauge TEST [facility] TWICE A DAY TWICE A DAY TWICE A l DAY Clinics OneTouch OneTouch No OneTouch Swe madeleine Verio Flex Verio Flex Verio Flex Communi Meter FOR Meter FOR Meter FOR ty TESTING.1 TESTING.1 TESTING.1 [facility] BOX ICD 10 BOX ICD 10 BOX ICD 10 l E11.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.65 Clinics OneTouch OneTouch No OneTouch Swe madeleine Verio test Verio test Verio test Communi strips TEST strips TEST strips ty TWICE A DAY TWICE A DAY TEST TWICE Hospita A DAY [facility] sotalol 160 sotalol 160 No sotalol [place] mg tablet 1 mg tablet 1 160 mg Communi po bid po bid tablet 1 [facility] sotalol 80 No sotalol 80 [place] mg tablet mg tablet mg tablet Communi ty [facility] warfarin 1 warfarin 1 No warfarin 1 [place] mg tablet mg tablet mg tablet Communi ty [facility] warfarin 2 warfarin 2 No warfarin 2 [place] mg tablet mg tablet mg tablet Communi [...] by oral route. amlodipine amlodipine No amlodipine [place] 5 mg tablet 5 mg tablet 5 mg C [facility]i TAKE 1 TAKE 1 tablet ty TABLET BY TABLET BY TAKE 1 [facility] MOUTH EVERY MOUTH EVERY TABLET BY l DAY DAY MOUTH Clinics EVERY DAY atorvastati atorvastati No atorvastat [place] n 40 mg n 40 mg in 40 mg Commu ni tablet TAKE tablet TAKE tablet ty 1 TABLET BY 1 TABLET BY TAKE 1 Hospita MOUTH EVERY MOUTH EVERY TABLET BY l DAY DAY MOUTH Clinics EVERY DAY BD BD No BD [place] Ultra-Fine Ultra-Fine Ultra-Fine Communi Kalee Pen Kalee Pen Kalee Pen ty Needle 32 Needle 32 Needle 32 Hospita gauge x gauge x gauge x l " " " Clinics cholecalcif cholecalcif No cholecalci [place] ghada ghada ferol Communi (vitamin (vitamin (vitamin ty D3) 1,250 D3) 1,250 D3) 1,250 Hospita mcg (50,000 mcg (50,000 mcg l unit) unit) (50,000 Clinics capsule capsule unit) TAKE 1 TAKE 1 capsule CAPSULE CAPSULE TAKE 1 EVERY 15 EVERY 15 CAPSULE DAYS DAYS EVERY 15 DAYS clonazepam clonazepam No clonazepam [place] 0.5 mg 0.5 mg 0.5 mg Communi tablet TAKE tablet TAKE tablet ty 1 TABLET BY 1 TABLET BY TAKE 1 Hospita MOUTH TWICE MOUTH TWICE TABLET BY l A DAY A DAY MOUTH Clinic s DIRECTED DIRECTED TWICE A DAY DIRECTED Dexilant 60 Dexilant 60 No Dexilant [place] mg capsule, mg capsule, 60 mg Communi [...] DAY EVERY DAY fenofibrate fenofibrate No fenofibrat [place] nanocrystal nanocrystal e C ommuni lized 145 lized 145 nanocrysta ty mg tablet mg tablet llized 145 Hospita TAKE 1 TAKE 1 mg tablet l TABLET BY TABLET BY TAKE 1 Cli nics MOUTH EVERY MOUTH EVERY TABLET BY DAY DAILY DAY DAILY MOUTH ORALLY 90 ORALLY 90 EVERY DAY DAILY ORALLY 90 glipizide glipizide No glipizide [place] ER 2.5 mg ER 2.5 mg ER 2.5 mg Communi tablet, tablet, tablet, ty extended extended extended Hos [facility] release 24 release 24 release 24 l hr TAKE 2 hr TAKE 2 hr TAKE 2 Clinics TABLETS BY TABLETS BY TABLETS BY MOUTH TUES MOUTH TUES MOUTH TUES SAT THURS SAT SAT SUN AND 1 SUN AND 1 SUN AND 1 TAB MON WED TAB MON WED TAB MON FRI FRI WED FRI hydrocortis hydrocortis No hydrocorti [place] one 20 mg one 20 mg sone 20 mg Communi tablet TAKE tablet TAKE tablet ty 1 BID for 3 1 BID for 3 TAKE 1 BID Hospita days days for 3 days [facility] Klor-Con 10 Klor-Con 10 No Klor-Con [place] mEq mEq 10 mEq Communi tablet,exte tablet,exte tablet,ext ty nded nded ended Hospita release 1 release 1 release 1 l po qd po qd po qd Clinics levothyroxi levothyroxi No levothyrox [place] ne 112 mcg ne 112 mcg ine 112 Communi tablet tablet mcg tablet ty [facility] levothyroxi levothyroxi No levothyrox [place] ne 125 mcg ne 125 mcg ine 125 Communi tablet 1 po tablet 1 po mcg tablet ty qd qd 1 po qd [facility] liothyronin liothyronin No liothyroni [place] e 5 mcg e 5 mcg ne 5 mcg Commu ni tablet 2 tablet 2 tablet 2 ty TABS TUES, TABS TUES, TABS TUES, Hospita THURS, SAT, THURS, SAT, THURS, l SUN. TAKE 1 SUN. TAKE 1 SAT, SUN. Clinics TAB MON, TAB MON, TAKE 1 TAB TUE, FRI TUE, FRI TUE, TUE, HALF HOUR HALF HOUR FRI HALF BEFORE BEFORE HOUR BREAKFAST BREAKFAST BEFORE WITH WATER WITH WATER BREAKFAST WITH WATER losartan losartan No losartan Swe made[facility] 100 mg 100 mg 100 mg Communi tablet 1 po tablet 1 po tablet 1 ty qd qd po qd [facility] losartan 50 losartan 50 No losartan [place] mg tablet mg tablet 50 mg [facility] methscopola No methscopol [place] mine 5 mg mine 5 mg amine 5 mg Communi tablet TAKE tablet TAKE tablet ty 1 TABLET BY 1 TABLET BY TAKE 1 Hospita MOUTH EVERY MOUTH EVERY TABLET BY l DAY DAY MOUTH Clinics EVERY DAY nitroglycer nitroglycer No 1 nitroglyce [place] in 0.4 mg in 0.4 mg rin 0.4 mg Communi sublingual sublingual sublingual ty tablet tablet tablet [facility] Place [address] 1 l tablet as tablet as tablet as Clinics needed by needed by needed by sublingual sublingual sublingual route. route. route. Omnitrope 5 Omnitrope 5 No Omnitrope [place] mg/1.5 mL mg/1.5 mL 5 mg/1.5 [facility]i (3.3 mg/mL) (3.3 mg/mL) mL (3.3 ty subcutaneou subcutaneou mg/mL) [facility] cartridge subcutaneo l 1 SC daily 1 SC daily us Cli nics cartridge 1 SC daily OneTouch OneTouch No OneTouch Swe madeleine Delica Delica Delica Communi Lancets 30 Lancets 30 Lancets 30 ty gauge TEST gauge TEST gauge TEST [facility] TWICE A DAY TWICE A DAY TWICE [...] Clinics sotalol 160 sotalol 160 No sotalol [place] mg tablet mg tablet 160 mg Com raz TAKE 1 TAKE 1 tablet ty TABLET BY TABLET BY TAKE 1 Hos [facility] MOUTH TWICE MOUTH TWICE TABLET BY l A DAY A DAY MOUTH Clinics TWICE A DAY sotalol 80 sotalol 80 No sotalol 80 [place] mg tablet mg tablet mg tablet Communi ty [facility] tramadol 50 tramadol 50 No 1 Q6H tramadol [place] mg tablet mg tablet 50 mg Comm uni Take 1 Take 1 tablet ty tablet tablet Take 1 Hospita every 6 every 6 tablet l hours by hours by every 6 Clin ics oral route. oral route. hours by oral route. warfarin 1 warfarin 1 No warfarin 1 [place] mg tablet mg tablet mg tablet Communi ty [facility] warfarin 2 warfarin 2 No warfarin 2 [place] mg tablet mg tablet mg tablet Communi [...] by oral route. amlodipine amlodipine No amlodipine [place] 5 mg tablet 5 mg tablet 5 mg C om[facility]i TAKE 1 TAKE 1 tablet ty TABLET BY TABLET BY TAKE 1 [facility] MOUTH EVERY MOUTH EVERY TABLET BY l DAY DAY MOUTH Clinics EVERY DAY atorvastati atorvastati No atorvastat [place] n 40 mg n 40 mg in 40 mg Commu ni tablet TAKE tablet TAKE tablet ty 1 TABLET BY 1 TABLET BY TAKE 1 Hospita MOUTH EVERY MOUTH EVERY TABLET BY l DAY DAY MOUTH Clinics EVERY DAY BD BD No BD [place] Ultra-Fine Ultra-Fine Ultra-Fine Communi Kalee Pen Kalee Pen Kalee Pen ty Needle 32 Needle 32 Needle 32 Hospita gauge x gauge x gauge x l " " " Clinics cholecalcif cholecalcif No cholecalci [place] ghada ghada ferol Communi (vitamin (vitamin (vitamin ty D3) 1,250 D3) 1,250 D3) 1,250 Hospita mcg (50,000 mcg (50,000 mcg l unit) unit) (50,000 Clinics capsule capsule unit) TAKE 1 TAKE 1 capsule CAPSULE CAPSULE TAKE 1 EVERY 15 EVERY 15 CAPSULE DAYS DAYS EVERY 15 DAYS clonazepam clonazepam No clonazepam [place] 0.5 mg 0.5 mg 0.5 mg Communi tablet TAKE tablet TAKE tablet ty 1 TABLET BY 1 TABLET BY TAKE 1 Hospita MOUTH TWICE MOUTH TWICE TABLET BY l A DAY A DAY MOUTH Clinic s DIRECTED DIRECTED TWICE A DAY DIRECTED Dexilant 60 Dexilant 60 No Dexilant [place] mg capsule, mg capsule, 60 mg Communi [...] DAY EVERY DAY fenofibrate fenofibrate No fenofibrat [place] nanocrystal nanocrystal e C ommuni lized 145 lized 145 nanocrysta ty mg tablet mg tablet llized 145 Hospita TAKE 1 TAKE 1 mg tablet l TABLET BY TABLET BY TAKE 1 Cli nics MOUTH EVERY MOUTH EVERY TABLET BY DAY DAY MOUTH EVERY DAY glipizide glipizide No glipizide [place] ER 2.5 mg ER 2.5 mg ER [...] FRI WED FRI hydrocortis hydrocortis No hydrocorti [place] one 20 mg one 20 mg sone 20 mg Communi tablet TAKE tablet TAKE tablet ty 1 BID for 3 1 BID for 3 TAKE 1 BID Hospita days days for 3 days l [facility] Klor-Con 10 Klor-Con 10 No Klor-Con [place] mEq mEq 10 mEq Communi tablet,exte tablet,exte tablet,ext ty nded nded ended Hospita release 1 release 1 release 1 l po qd po qd po qd [facility] levothyroxi levothyroxi No levothyrox [place] ne 112 mcg ne 112 mcg ine 112 Communi tablet tablet mcg tablet ty [facility] levothyroxi levothyroxi No levothyrox [place] ne 125 mcg ne 125 mcg ine 125 Communi tablet 1 po tablet 1 po mcg tablet ty qd qd 1 po qd [facility] liothyronin liothyronin No liothyroni [place] e 5 mcg e 5 mcg ne 5 mcg Commu ni tablet 2 tablet 2 tablet 2 ty TABS TUES, TABS TUES, TABS TUES, Hospita THURS, SAT, TH, SAT, TH, l SUN. TAKE 1 SUN. TAKE 1 SAT, SUN. Clinics TAB MON, TAB MON, TAKE 1 TAB WED, FRI WED, FRI TUE, WED, HALF HOUR HALF HOUR FRI HALF BEFORE BEFORE HOUR BREAKFAST BREAKFAST BEFORE WITH WATER WITH WATER BREAKFAST WITH WATER losartan losartan No losartan Swe [facility] 100 mg 100 mg 100 mg Communi tablet 1 po tablet 1 po tablet 1 ty qd qd po qd [facility] losartan 50 losartan 50 No losartan [place] mg tablet mg tablet 50 mg Comm uni tablet ty [facility] methscopola methscopola No methscopol [place] mine 5 mg mine 5 mg amine 5 mg Communi tablet TAKE tablet TAKE tablet ty 1 TABLET BY 1 TABLET BY TAKE 1 Hospita MOUTH EVERY MOUTH EVERY TABLET BY l DAY DAY MOUTH Clinics EVERY DAY nitroglycer nitroglycer No 1 nitroglyce [place] in 0.4 mg in 0.4 mg rin 0.4 mg [facility] sublingual ty tablet tablet tablet Hospita Place [address] 1 l tablet as tablet as tablet as Clinics needed by needed by needed by sublingual sublingual sublingual route. route. route. Omnitrope 5 Omnitrope 5 No Omnitrope [place] mg/1.5 mL mg/1.5 mL 5 mg/1.5 C om[facility]i (3.3 mg/mL) (3.3 mg/mL) mL (3.3 ty subcutaneou subcutaneou mg/mL) [facility] s cartridge s cartridge subcutaneo l 1 SC daily 1 SC daily us Cli nics cartridge 1 SC daily OneTouch OneTouch No OneTouch Swe madeleine Delica Delica Delica Communi Lancets 30 Lancets 30 Lancets 30 ty gauge TEST gauge TEST gauge TEST [facility] TWICE A DAY TWICE A DAY TWICE A l DAY Clinics OneTouch OneTouch No OneTouch Swe made[facility] Verio Flex Verio Flex Verio Flex Communi Meter FOR Meter FOR Meter FOR ty TESTING.1 TESTING.1 TESTING.1 [facility] BOX ICD 10 BOX ICD 10 BOX ICD 10 l E11.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.65 Clinics OneTouch OneTouch No OneTouch Swe madeleine Verio test Verio test Verio test Communi strips TEST strips TEST strips ty TWICE A DAY TWICE A DAY TEST TWICE Hospita A DAY [facility] sotalol 160 sotalol 160 No sotalol [place] mg tablet mg tablet 160 mg Com raz TAKE 1 TAKE 1 tablet ty TABLET BY TABLET BY TAKE 1 [facility] michael MOUTH TWICE MOUTH TWICE TABLET BY l A DAY A DAY MOUTH Clinics TWICE A DAY sotalol 80 sotalol 80 No sotalol 80 [place] mg tablet mg tablet mg tablet Communi ty [facility] tramadol 50 tramadol 50 No tramadol [place] mg tablet mg tablet 50 mg Comm uni Take 1 Take 1 tablet ty tablet tablet Take 1 Hospita every 6 every 6 tablet l hours by hours by every 6 Clin ics oral route. oral route. hours by oral route. warfarin 1 warfarin 1 No warfarin 1 [place] mg tablet mg tablet mg tablet Communi ty Hospita l Clinics warfarin 2 warfarin 2 No warfarin 2 [place] mg tablet mg tablet mg tablet Communi [...] by oral route. amlodipine amlodipine No amlodipine [place] 5 mg tablet 5 mg tablet 5 mg C om[facility]i TAKE 1 TAKE 1 tablet ty TABLET BY TABLET BY TAKE 1 Hos [facility] MOUTH EVERY MOUTH EVERY TABLET BY l DAY DAY MOUTH Clinics EVERY DAY atorvastati atorvastati No atorvastat [place] n 40 mg n 40 mg in 40 mg Commu ni tablet TAKE tablet TAKE tablet ty 1 TABLET BY 1 TABLET BY TAKE 1 Hospita MOUTH EVERY MOUTH EVERY TABLET BY l DAY DAY MOUTH Clinics EVERY DAY BD BD No BD [place] Ultra-Fine Ultra-Fine Ultra-Fine Communi Kalee Pen Kalee Pen Kalee Pen ty Needle 32 Needle 32 Needle 32 Hospita gauge x gauge x gauge x l " " " Clinics cholecalcif cholecalcif No cholecalci [place] ghada ghada ferol [place] (vitamin (vitamin (vitamin ty D3) 1,250 D3) 1,250 D3) 1,250 [facility] ([facility] (50,000 mcg l unit) unit) (50,000 Clinics capsule capsule unit) TAKE 1 TAKE 1 capsule CAPSULE CAPSULE TAKE 1 EVERY 15 EVERY 15 CAPSULE DAYS DAYS EVERY 15 DAYS clonazepam clonazepam No clonazepam [place] 0.5 mg 0.5 mg 0.5 mg Communi tablet TAKE tablet TAKE tablet ty 1 TABLET BY 1 TABLET BY TAKE 1 Hospita MOUTH TWICE MOUTH TWICE TABLET BY l A DAY A DAY MOUTH Clinic s DIRECTED DIRECTED TWICE A DAY DIRECTED Dexilant 60 Dexilant 60 No Dexilant [place] mg capsule, mg capsule, 60 mg Communi [...] DAY EVERY DAY fenofibrate fenofibrate No fenofibrat [place] nanocrystal nanocrystal e C om[facility]i lized 145 lized 145 nanocrysta ty mg tablet mg tablet llized 145 Hospita TAKE 1 TAKE 1 mg tablet l TABLET BY TABLET BY TAKE 1 Cli nics MOUTH EVERY MOUTH EVERY TABLET BY DAY DAY MOUTH EVERY DAY glipizide glipizide No glipizide [place] ER 2.5 mg ER 2.5 mg ER [...] FRI Tue FRI hydrocortis hydrocortis No hydrocorti [place] one 20 mg one 20 mg sone 20 mg Communi tablet TAKE tablet TAKE tablet ty 1 BID for 3 1 BID for 3 TAKE 1 BID Hospita days days for 3 days l Clinics Klor-Con 10 Klor-Con 10 No Klor-Con [place] mEq mEq 10 mEq Communi tablet,exte tablet,exte tablet,ext ty nded nded ended Hospita release 1 release 1 release 1 l po qd po qd po qd Clinics levothyroxi levothyroxi No levothyrox [place] ne 112 mcg ne 112 mcg ine 112 Communi tablet tablet mcg tablet ty Hospita l [facility] levothyroxi levothyroxi No levothyrox [place] ne 125 mcg ne 125 mcg ine 125 Communi tablet 1 po tablet 1 po mcg tablet ty qd qd 1 po qd Hospita l Clinics liothyronin liothyronin No liothyroni [place] e 5 mcg e 5 mcg ne [...] tablet 1 ty qd qd [facility]d [facility] losartan 50 losartan 50 No losartan [place] mg tablet mg tablet 50 mg Comm uni tablet ty [facility] Clin[facility] methscopola methscopola No methscopol [place] mine 5 mg mine 5 mg amine 5 mg Communi tablet TAKE tablet TAKE tablet ty 1 TABLET BY 1 TABLET BY TAKE 1 Hospita MOUTH EVERY MOUTH EVERY TABLET BY l DAY DAY MOUTH Clinics EVERY DAY nitroglycer nitroglycer No 1 nitroglyce [place] in 0.4 mg in 0.4 mg rin 0.4 mg Communi sublingual sublingual sublingual ty tablet tablet tablet [facility] [address] 1 l tablet as tablet as tablet as Clinics needed by needed by needed by sublingual sublingual sublingual route. route. route. Omnitrope 5 Omnitrope 5 No Omnitrope [place] mg/1.5 mL mg/1.5 mL 5 mg/1.5 [facility]i (3.3 mg/mL) (3.3 mg/mL) mL (3.3 ty subcutaneou subcutaneou mg/mL) [facility] s cartridge s cartridge subcutaneo l 1 SC daily 1 SC daily us Cli nics cartridge 1 SC daily OneTouch OneTouch No OneTouch Swe madeleine Delica Delica Delica Communi Lancets 30 Lancets 30 Lancets 30 ty gauge TEST gauge TEST gauge TEST [facility] TWICE A DAY TWICE A DAY TWICE A l DAY Clinics OneTouch OneTouch No OneTouch Swe madeleine Verio Flex Verio Flex Verio Flex Communi Meter FOR Meter FOR Meter FOR ty TESTING.1 TESTING.1 TESTING.1 [facility] BOX ICD 10 BOX ICD 10 BOX ICD 10 l E11.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.65 Clinics OneTouch OneTouch No OneTouch Swe madeleine Verio test Verio test Verio test Communi strips TEST strips TEST strips ty TWICE A DAY TWICE A DAY TEST TWICE Hospita A DAY l Clinics sotalol 160 sotalol 160 No sotalol [place] mg tablet mg tablet 160 mg Com raz TAKE 1 TAKE 1 tablet ty TABLET BY TABLET BY TAKE 1 Hos michael MOUTH TWICE MOUTH TWICE TABLET BY l A DAY A DAY MOUTH Clinics TWICE A DAY sotalol 80 sotalol 80 No sotalol 80 [place] mg tablet mg tablet mg tablet Communi ty Hospita l Clinics tramadol 50 tramadol 50 No tramadol [place] mg tablet mg tablet 50 mg Comm uni Take 1 Take 1 tablet ty tablet tablet Take 1 Hospita every 6 every 6 tablet l hours by hours by every 6 Clin ics oral route. oral route. hours by oral route. warfarin 1 warfarin 1 No warfarin 1 [place] mg tablet mg tablet mg tablet Communi ty Hospita l Clinics warfarin 2 warfarin 2 No warfarin 2 [place] mg tablet mg tablet mg tablet Communi [...] by oral route. amlodipine amlodipine No amlodipine [place] 5 mg tablet 5 mg tablet 5 mg C om[facility]i TAKE 1 TAKE 1 tablet ty TABLET BY TABLET BY TAKE 1 Hos [facility] MOUTH EVERY MOUTH EVERY TABLET BY l DAY DAY MOUTH Clinics EVERY DAY atorvastati atorvastati No atorvastat [place] n 40 mg n 40 mg in 40 mg Commu ni tablet TAKE tablet TAKE tablet ty 1 TABLET BY 1 TABLET BY TAKE 1 Hospita MOUTH EVERY MOUTH EVERY TABLET BY l DAY DAY MOUTH Clinics EVERY DAY BD BD No BD [place] Ultra-Fine Ultra-Fine Ultra-Fine Communi Kalee Pen Kalee Pen Kalee Pen ty Needle 32 Needle 32 Needle 32 Hospita gauge x gauge x gauge x l " " " Clinics cholecalcif cholecalcif No cholecalci [place] ghada ghada ferol [place] (vitamin (vitamin (vitamin ty D3) 1,250 D3) 1,250 D3) 1,250 Hospita mcg (50,000 mcg (50,000 mcg l unit) unit) (50,000 Clinics capsule capsule unit) TAKE 1 TAKE 1 capsule CAPSULE CAPSULE TAKE 1 EVERY 15 EVERY 15 CAPSULE DAYS DAYS EVERY 15 DAYS clonazepam clonazepam No clonazepam [place] 0.5 mg 0.5 mg 0.5 mg Communi tablet TAKE tablet TAKE tablet ty 1 TABLET BY 1 TABLET BY TAKE 1 Hospita MOUTH TWICE MOUTH TWICE TABLET BY l A DAY A DAY MOUTH Clinic s DIRECTED DIRECTED TWICE A PRn PRn DAY DIRECTED PRn Dexilant 60 Dexilant 60 No Dexilant [place] mg capsule, mg capsule, 60 mg Communi [...] DAY EVERY DAY fenofibrate fenofibrate No fenofibrat [place] nanocrystal nanocrystal e C om[facility]i lized 145 lized 145 nanocrysta ty mg tablet mg tablet llized 145 Hospita TAKE 1 TAKE 1 mg tablet l TABLET BY TABLET BY TAKE 1 Cli nics MOUTH EVERY MOUTH EVERY TABLET BY DAY DAY MOUTH EVERY DAY glipizide glipizide No glipizide [place] ER 2.5 mg ER 2.5 mg ER [...] TAB Tue FRI hydrocortis hydrocortis No hydrocorti [place] one 20 mg one 20 mg sone 20 mg Communi tablet TAKE tablet TAKE tablet ty 1 BID for 3 1 BID for 3 TAKE 1 BID Hospita days days for 3 days [facility] Klor-Con 10 Klor-Con 10 No Klor-Con [place] mEq mEq 10 mEq Communi tablet,exte tablet,exte tablet,ext ty nded nded ended Hospita release 1 release 1 release 1 l po qd po qd po qd Clinics levothyroxi levothyroxi No levothyrox [place] ne 125 mcg ne 125 mcg ine 125 Communi tablet 1 po tablet 1 po mcg tablet ty qd qd 1 po qd Hospita l Clinics lidocaine 5 lidocaine 5 No lidocaine [place] % topical % topical 5 % Commu ni patch APPLY patch APPLY topical ty 1 PATCH BY 1 PATCH BY patch Ho spita TOPICAL TOPICAL APPLY 1 l ROUTE ONCE ROUTE ONCE PATCH BY Clinics DAILY (MAY DAILY (MAY TOPICAL WEAR UP TO WEAR UP TO ROUTE ONCE 12HOURS.) 12HOURS.) DAILY (MAY WEAR UP TO 12HOURS.) liothyronin liothyronin No liothyroni [place] e 5 mcg e 5 mcg ne [...] tablet 1 ty qd qd po qd [facility] Clin[facility] methscopola methscopola No methscopol [place] mine 5 mg mine 5 mg amine 5 mg Communi tablet TAKE tablet TAKE tablet ty 1 TABLET BY 1 TABLET BY TAKE 1 [facility] MOUTH EVERY MOUTH EVERY TABLET BY l DAY DAY MOUTH Clinics EVERY DAY nitroglycer nitroglycer No 1 nitroglyce [place] in 0.4 mg in 0.4 mg rin 0.4 mg Communi sublingual sublingual sublingual ty tablet tablet tablet [facility] [address] 1 l tablet as tablet as tablet as Clinics needed by needed by needed by sublingual sublingual sublingual route. route. route. Omnitrope 5 Omnitrope 5 No Omnitrope [place] mg/1.5 mL mg/1.5 mL 5 mg/1.5 C [facility]i (3.3 mg/mL) (3.3 mg/mL) mL (3.3 ty subcutaneou subcutaneou mg/mL) [facility] s cartridge s cartridge subcutaneo l 1 SC daily 1 SC daily us Cli nics cartridge 1 SC daily OneTouch OneTouch No OneTouch Swe madeleine Delica Delica Delica Communi Lancets 30 Lancets 30 Lancets 30 ty gauge TEST gauge TEST gauge TEST [facility] TWICE A DAY TWICE A DAY [...] Clinics sotalol 160 sotalol 160 No sotalol [place] mg tablet mg tablet 160 mg Com raz TAKE 1 TAKE 1 tablet ty TABLET BY TABLET BY TAKE 1 Hos michael MOUTH TWICE MOUTH TWICE TABLET BY l A DAY A DAY MOUTH Clinics TWICE A DAY tramadol 50 tramadol 50 No tramadol [place] mg tablet mg tablet 50 mg Comm uni Take 1 Take 1 tablet ty tablet tablet Take 1 Hospita every 6 every 6 tablet l hours by hours by every 6 Clin ics oral route. oral route. hours by oral route. warfarin 1 warfarin 1 No warfarin 1 [place] mg tablet mg tablet mg tablet Communi Takes MWF Takes MWF Takes MWF ty Hospita l Clinics warfarin 2 warfarin 2 No warfarin 2 [place] mg tablet mg tablet mg tablet Communi TAKE 1 TAKE 1 TAKE 1 ty TABLET BY TABLET BY TABLET BY Hospita MOUTH EVERY MOUTH EVERY MOUTH l DAY DAY EVERY DAY Clinics amlodipine amlodipine No amlodipine [place] 5 mg tablet 5 mg tablet 5 mg C ommuni TAKE 1 TAKE 1 tablet ty TABLET BY TABLET BY TAKE 1 Hos [facility] MOUTH EVERY MOUTH EVERY TABLET BY l DAY DAY MOUTH Clinics EVERY DAY atorvastati atorvastati No atorvastat [place] n 40 mg n 40 mg in 40 mg Commu ni tablet TAKE tablet TAKE tablet ty 1 TABLET BY 1 TABLET BY TAKE 1 Hospita MOUTH EVERY MOUTH EVERY TABLET BY l DAY DAY MOUTH Clinics EVERY DAY BD BD No BD [place] Ultra-Fine Ultra-Fine Ultra-Fine Communi Kalee Pen Kalee Pen Kalee Pen ty Needle 32 Needle 32 Needle 32 Hospita gauge x gauge x gauge x l " " " Clinics cholecalcif cholecalcif No cholecalci [place] ghada ghada ferol Liam (vitamin (vitamin (vitamin ty D3) 1,250 D3) 1,250 D3) 1,250 Hospita mcg (50,000 mcg (50,000 mcg l unit) unit) (50,000 Clinics capsule capsule unit) TAKE 1 TAKE 1 capsule CAPSULE CAPSULE TAKE 1 EVERY 15 EVERY 15 CAPSULE DAYS DAYS EVERY 15 DAYS clonazepam clonazepam No clonazepam [place] 0.5 mg 0.5 mg 0.5 mg Communi tablet TAKE tablet TAKE tablet ty 1 TABLET BY 1 TABLET BY TAKE 1 Hospita MOUTH TWICE MOUTH TWICE TABLET BY l A DAY A DAY MOUTH Clinic s DIRECTED DIRECTED TWICE A PRn PRn DAY DIRECTED PRn Dexilant 60 Dexilant 60 No Dexilant [place] mg capsule, mg capsule, 60 mg Communi [...] DAY EVERY DAY fenofibrate fenofibrate No fenofibrat [place] nanocrystal nanocrystal e C ommuni lized 145 lized 145 nanocrysta ty mg tablet mg tablet llized 145 Hospita TAKE 1 TAKE 1 mg tablet l TABLET BY TABLET BY TAKE 1 Cli nics MOUTH EVERY MOUTH EVERY TABLET BY DAY DAY MOUTH EVERY DAY glipizide glipizide No glipizide [place] ER 2.5 mg ER 2.5 mg ER [...] 1 TAB Tue TAB Tue TAB Tue WED FRI hydrocortis hydrocortis No hydrocorti [place] one 20 mg one 20 mg sone 20 mg Communi tablet TAKE tablet TAKE tablet ty 1 BID for 3 1 BID for 3 TAKE 1 BID Hospita days days for 3 days l Clinics Klor-Con 10 Klor-Con 10 No Klor-Con [place] mEq mEq 10 mEq Communi tablet,exte tablet,exte tablet,ext ty nded nded ended Hospita release 1 release 1 release 1 l po qd po qd po qd Clinics levothyroxi levothyroxi No levothyrox [place] ne 112 mcg ne 112 mcg ine 112 Communi tablet tablet mcg tablet ty Hospita l Clinics levothyroxi levothyroxi No levothyrox [place] ne 125 mcg ne 125 mcg ine 125 Communi tablet 1 po tablet 1 po mcg tablet ty qd qd 1 po qd [facility] lidocaine 5 lidocaine 5 No lidocaine [place] % topical % topical 5 % Commu ni patch APPLY patch APPLY topical ty 1 PATCH BY 1 PATCH BY patch Ho spita TOPICAL TOPICAL APPLY 1 l ROUTE ONCE ROUTE ONCE PATCH BY Clinics DAILY (MAY DAILY (MAY TOPICAL WEAR UP TO WEAR UP TO ROUTE ONCE 12HOURS.) 12HOURS.) DAILY (MAY WEAR UP TO 12HOURS.) liothyronin liothyronin No liothyroni [place] e 5 mcg e 5 mcg ne 5 mcg Commu ni tablet 2 tablet 2 tablet 2 ty TABS TUES, TABS TUES, TABS [facility], [facility], SAT, THURS, SAT, THURS, l SUN. [...] tablet 1 ty qd qd po qd [facility] methscopola methscopola No methscopol [place] mine 5 mg mine 5 mg amine 5 mg Communi tablet TAKE tablet TAKE tablet ty 1 TABLET BY 1 TABLET BY TAKE 1 [facility] MOUTH EVERY MOUTH EVERY TABLET BY l DAY DAY MOUTH Clinics EVERY DAY nitroglycer nitroglycer No 1 nitroglyce [place] in 0.4 mg in 0.4 mg rin 0.4 mg Communi sublingual sublingual sublingual ty tablet tablet tablet [facility] Place [address] 1 l tablet as tablet as tablet as Clinics needed by needed by needed by sublingual sublingual sublingual route. route. route. Omnitrope 5 Omnitrope 5 No Omnitrope [place] mg/1.5 mL mg/1.5 mL 5 mg/1.5 C ommuni (3.3 mg/mL) (3.3 mg/mL) mL (3.3 ty subcutaneou subcutaneou mg/mL) [facility] s cartridge s cartridge subcutaneo l [...] Clinics sotalol 160 sotalol 160 No sotalol [place] mg tablet mg tablet 160 mg Com raz TAKE 1 TAKE 1 tablet ty TABLET BY TABLET BY TAKE 1 Hos [facility]ichael MOUTH TWICE MOUTH TWICE TABLET BY l A DAY A DAY MOUTH Clinics TWICE A DAY tramadol 50 tramadol 50 No 1 Q6H tramadol [place] mg tablet mg tablet 50 mg Comm uni Take 1 Take 1 tablet ty tablet tablet Take 1 Hospita every 6 every 6 tablet l hours by hours by every 6 Clin ics oral route. oral route. hours by oral route. warfarin 1 warfarin 1 No warfarin 1 [place] mg tablet mg tablet mg tablet Communi Takes MWF Takes MWF Takes MWF ty [facility]ospita l Clinics warfarin 2 warfarin 2 No warfarin 2 [place] mg tablet mg tablet mg tablet Communi TAKE 1 TAKE 1 TAKE 1 ty TABLET BY TABLET BY TABLET BY Hospita MOUTH EVERY MOUTH EVERY MOUTH l DAY DAY EVERY DAY Clinics acetaminoph acetaminoph No acetaminop [place] en 300 en 300 hen 300 Communi mg-codeine mg-codeine mg-codeine ty 30 mg 30 mg 30 mg Hospita tablet Take tablet Take tablet l 1 tablet 1 tablet Take 1 Clini cs Q4-6 hr PRN Q4-6 hr PRN tablet for pain for pain Q4-6 hr PRN for pain amlodipine amlodipine No amlodipine [place] 5 mg tablet 5 mg tablet 5 mg C om[facility]i TAKE 1 TAKE 1 tablet ty TABLET BY TABLET BY TAKE 1 [facility] MOUTH EVERY MOUTH EVERY TABLET BY l DAY DAY MOUTH Clinics EVERY DAY atorvastati atorvastati No atorvastat [place] n 40 mg n 40 mg in 40 mg Commu ni tablet TAKE tablet TAKE tablet ty 1 TABLET BY 1 TABLET BY TAKE 1 Hospita MOUTH EVERY MOUTH EVERY TABLET BY l DAY DAY MOUTH Clinics EVERY DAY BD BD No BD [place] Ultra-Fine Ultra-Fine Ultra-Fine Communi Kalee Pen Kalee Pen Kalee Pen ty Needle 32 Needle 32 Needle 32 Hospita gauge x gauge x gauge x l " " " Clinics cholecalcif cholecalcif No cholecalci [place] ghada ghada ferol Communi (vitamin (vitamin (vitamin ty D3) 1,250 D3) 1,250 D3) 1,250 Hospita mcg (50,000 mcg (50,000 mcg l unit) unit) (50,000 Clinics capsule capsule unit) TAKE 1 TAKE 1 capsule CAPSULE CAPSULE TAKE 1 EVERY 15 EVERY 15 CAPSULE DAYS DAYS EVERY 15 DAYS cholestyram cholestyram No cholestyra [place] ine (with ine (with mine (with Communi [...] DIRECTED BEDTIME DIRECTED clonazepam clonazepam No clonazepam [place] 0.5 mg 0.5 mg 0.5 mg Communi tablet TAKE tablet TAKE tablet ty 1 TABLET BY 1 TABLET BY TAKE 1 Hospita MOUTH TWICE MOUTH TWICE TABLET BY l A DAY A DAY MOUTH Clinic s DIRECTED DIRECTED TWICE A PRn PRn DAY DIRECTED PRn Dexilant 60 Dexilant 60 No Dexilant [place] mg capsule, mg capsule, 60 mg Communi delayed delayed capsule, ty release release delayed Hospit a TAKE 1 TAKE 1 release l CAPSULE BY CAPSULE BY TAKE 1 C linics MOUTH DAILY MOUTH DAILY CAPSULE BY NEEDS NEEDS MOUTH OFFICE OFFICE DAILY VISIT FOR VISIT FOR NEEDS ADDITIONAL ADDITIONAL OFFICE REFILLS REFILLS VISIT FOR ADDITIONAL REFILLS diphenoxyla diphenoxyla No diphenoxyl [place] te-atropine te-atropine ate-atropi Communi 2.5 2.5 ne [...] DAY EVERY DAY fenofibrate fenofibrate No fenofibrat [place] nanocrystal nanocrystal e C om[facility]i lized 145 lized 145 nanocrysta ty mg tablet mg tablet llized 145 Hospita TAKE 1 TAKE 1 mg tablet l TABLET BY TABLET BY TAKE 1 Cli nics MOUTH EVERY MOUTH EVERY TABLET BY DAY DAY MOUTH EVERY DAY glipizide glipizide No glipizide [place] ER 2.5 mg ER 2.5 mg ER [...] TAB Tue FRI hydrocortis hydrocortis No hydrocorti [place] one 20 mg one 20 mg sone 20 mg Communi tablet TAKE tablet TAKE tablet ty 1 BID for 3 1 BID for 3 TAKE 1 BID Hospita days days for 3 days [facility] Klor-Con 10 Klor-Con 10 No Klor-Con [place] mEq mEq 10 mEq Communi tablet,exte tablet,exte tablet,ext ty nded nded ended Hospita release 1 release 1 release 1 l po qd po qd po qd [facility] levothyroxi levothyroxi No levothyrox [place] ne 112 mcg ne 112 mcg ine 112 Communi tablet tablet mcg tablet ty [facility] levothyroxi levothyroxi No levothyrox [place] ne 125 mcg ne 125 mcg ine 125 Communi tablet 1 po tablet 1 po mcg tablet ty qd qd 1 po qd [facility] lidocaine 5 lidocaine 5 No lidocaine [place] % topical % topical 5 % Commu ni patch APPLY patch APPLY topical ty 1 PATCH BY 1 PATCH BY patch Ho spita TOPICAL TOPICAL APPLY 1 l ROUTE ONCE ROUTE ONCE PATCH BY Clinics DAILY (MAY DAILY (MAY TOPICAL WEAR UP TO WEAR UP TO ROUTE ONCE 12HOURS.) 12HOURS.) DAILY (MAY WEAR UP TO 12HOURS.) liothyronin liothyronin No liothyroni [place] e 5 mcg e 5 mcg ne [...] tablet 1 ty qd qd po qd [facility] methscopola methscopola No methscopol [place] mine 5 mg mine 5 mg amine 5 mg Communi tablet TAKE tablet TAKE tablet ty 1 TABLET BY 1 TABLET BY TAKE 1 [facility] MOUTH EVERY MOUTH EVERY TABLET BY l DAY DAY MOUTH Clinics EVERY DAY nitroglycer nitroglycer No 1 nitroglyce [place] in 0.4 mg in 0.4 mg rin 0.4 mg Communi sublingual sublingual sublingual ty tablet tablet tablet [facility] [address] 1 l tablet as tablet as tablet as Clinics needed by needed by needed by sublingual sublingual sublingual route. route. route. Omnitrope 5 Omnitrope 5 No Omnitrope [place] mg/1.5 mL mg/1.5 mL 5 mg/1.5 C om[facility]i (3.3 mg/mL) (3.3 mg/mL) mL (3.3 ty subcutaneou subcutaneou mg/mL) [facility] s cartridge s cartridge subcutaneo l 1 SC daily 1 SC daily us Cli nics cartridge 1 SC daily OneTouch OneTouch No OneTouch Swe madeleine Delica Delica Delica Communi Lancets 30 Lancets 30 Lancets 30 ty gauge TEST gauge TEST gauge TEST [facility] TWICE A DAY TWICE A DAY [...] Clinics sotalol 160 sotalol 160 No sotalol [place] mg tablet mg tablet 160 mg Com raz TAKE 1 TAKE 1 tablet ty TABLET BY TABLET BY TAKE 1 [facility] MOUTH TWICE MOUTH TWICE TABLET BY l A DAY A DAY MOUTH Clinics TWICE A DAY tramadol 50 tramadol 50 No tramadol [place] mg tablet mg tablet 50 mg Comm uni TAKE 1 TAKE 1 tablet ty TABLET TABLET TAKE 1 Hospita EVERY 6 EVERY 6 TABLET l HOURS BY HOURS BY EVERY 6 Clin ics ORAL ROUTE. ORAL ROUTE. HOURS BY ORAL ROUTE. warfarin 1 warfarin 1 No warfarin 1 [place] mg tablet mg tablet mg tablet Communi Takes MWF Takes MWF Takes MWF ty Hospita l Clinics warfarin 2 warfarin 2 No warfarin 2 [place] mg tablet mg tablet mg tablet Communi TAKE 1 TAKE 1 TAKE 1 ty TABLET BY TABLET BY TABLET BY Hospita MOUTH EVERY MOUTH EVERY MOUTH l DAY DAY EVERY DAY Clinics amlodipine amlodipine No amlodipine [place] 5 mg tablet 5 mg tablet 5 mg C om[facility]i TAKE 1 TAKE 1 tablet ty TABLET BY TABLET BY TAKE 1 [facility] MOUTH EVERY MOUTH EVERY TABLET BY l DAY DAY MOUTH Clinics EVERY DAY atorvastati atorvastati No atorvastat [place] n 40 mg n 40 mg in 40 mg Commu ni tablet TAKE tablet TAKE tablet ty 1 TABLET BY 1 TABLET BY TAKE 1 Hospita MOUTH EVERY MOUTH EVERY TABLET BY l DAY DAY MOUTH Clinics EVERY DAY BD Kalee 2nd BD Kalee 2nd No BD Kalee [place] Gen Pen Gen Pen 2nd Gen Commun i Needle 32 Needle 32 Pen Needle ty gauge x gauge x 32 gauge x [facility] " 1 " 1 " 1 l TIME A DAY TIME A DAY TIME A DAY Clinics cholecalcif cholecalcif No cholecalci [place] ghada ghada ferol Communi (vitamin (vitamin (vitamin ty D3) 1,250 D3) 1,250 D3) 1,250 Hospita mcg (50,000 mcg (50,000 mcg l unit) unit) (50,000 Clinics capsule capsule unit) TAKE 1 TAKE 1 capsule CAPSULE CAPSULE TAKE 1 EVERY 15 EVERY 15 CAPSULE DAYS DAYS EVERY 15 DAYS clonazepam clonazepam No clonazepam [place] 0.5 mg 0.5 mg 0.5 mg Communi tablet TAKE tablet TAKE tablet ty 1 TABLET BY 1 TABLET BY TAKE 1 Hospita MOUTH TWICE MOUTH TWICE TABLET BY l A DAY A DAY MOUTH Clinic s DIRECTED DIRECTED TWICE A PRn PRn DAY DIRECTED PRn Eliquis 5 Eliquis 5 No Eliquis 5 [place] mg tablet mg tablet mg tablet Communi TAKE 1 TAKE 1 TAKE 1 ty TABLET BY TABLET BY TABLET BY Hospita MOUTH 2 MOUTH 2 MOUTH 2 l (TWO) TIMES (TWO) TIMES (TWO) Clinics DAILY. DAILY. TIMES INDICATIONS INDICATIONS DAILY. ATRIAL ATRIAL INDICATION FIBRILLATIO FIBRILLATIO S ATRIAL N N FIBRILLATI ON fenofibrate fenofibrate No fenofibrat [place] nanocrystal nanocrystal e C om[facility]i lized 145 lized 145 nanocrysta ty mg tablet mg tablet llized 145 Hospita TAKE 1 TAKE 1 mg tablet l TABLET BY TABLET BY TAKE 1 Cli nics MOUTH EVERY MOUTH EVERY TABLET BY DAY DAY MOUTH EVERY DAY Humatrope 6 Humatrope 6 No Humatrope [place] mg (18 mg (18 6 mg (18 Communi unit) unit) unit) ty injection injection injection [facility] cartridge cartridge cartridge l inject 0.2 inject 0.2 inject 0.2 Clinics ml SQ daily ml SQ daily ml SQ daily hydrocortis hydrocortis No hydrocorti [place] one 20 mg one 20 mg sone [...] HALF IN PM isosorbide isosorbide No isosorbide [place] mononitrate mononitrate mononitrat Communi ER 30 mg ER 30 mg e ER 30 mg t y tablet,exte tablet,exte tablet,ext Hospita nded nded ended l release 24 release 24 release 24 Clinics hr TAKE 1 hr TAKE 1 hr TAKE 1 TABLET BY TABLET BY TABLET BY MOUTH EVERY MOUTH EVERY MOUTH DAY DAY EVERY DAY Klor-Con 10 Klor-Con 10 No Klor-Con [place] mEq mEq 10 mEq Communi tablet,exte tablet,exte tablet,ext ty nded nded ended Hospita release release release l TAKE 1 TAKE 1 TAKE 1 Clinics TABLET BY TABLET BY TABLET BY MOUTH EVERY MOUTH EVERY MOUTH DAY WITH DAY WITH EVERY DAY FOOD FOOD WITH FOOD levothyroxi levothyroxi No levothyrox [place] ne 112 mcg ne 112 mcg ine [...] ty qd qd po qd Hospita l Clinics mirtazapine mirtazapine No mirtazapin [place] 15 mg 15 mg e 15 mg Communi tablet TAKE tablet TAKE tablet ty 1 TABLET BY 1 TABLET BY TAKE 1 [facility] MOUTH MOUTH TABLET BY l EVERYDAY AT EVERYDAY AT MOUTH Clinics BEDTIME BEDTIME EVERYDAY AT BEDTIME nitroglycer nitroglycer No 1 nitroglyce [place] in 0.4 mg in 0.4 mg rin [...] Santyl 250 Santyl 250 No Santyl 250 [place] unit/gram unit/gram unit/gram Communi topical topical topical ty ointment ointment ointment [facility] APPLY A APPLY A APPLY A l DIONY DIONY DIONY Clinics THICK THICK THICK AMOUNT TO AMOUNT TO AMOUNT TO WOUND 3 WOUND 3 WOUND 3 TIMES A TIMES A TIMES A WEEK WEEK WEEK simvastatin simvastatin No simvastati [place] 40 mg 40 mg n 40 mg Communi tablet TAKE tablet TAKE tablet ty 1 TABLET 1 TABLET TAKE 1 Hospi ta (40 MG) BY (40 MG) BY TABLET (40 l MOUTH DAILY MOUTH DAILY MG) BY Clinics IN THE IN THE MOUTH EVENING NOT EVENING NOT DAILY IN TAKING TAKING THE EVENING NOT TAKING sotalol 160 sotalol 160 No sotalol [place] mg tablet mg tablet 160 mg Com raz TAKE 1 TAKE 1 tablet ty TABLET BY TABLET BY TAKE 1 [facility] MOUTH EVERY MOUTH EVERY TABLET BY l DAY DAY MOUTH Clinics EVERY DAY tramadol 50 tramadol 50 No tramadol [place] mg tablet mg tablet 50 mg Comm uni TAKE 1 TAKE 1 tablet ty TABLET TABLET TAKE 1 Hospita EVERY 6 EVERY 6 TABLET l HOURS BY HOURS BY EVERY 6 Clin ics ORAL ROUTE. ORAL ROUTE. HOURS BY ORAL ROUTE. amlodipine amlodipine No amlodipine [place] 5 mg tablet 5 mg tablet 5 mg C om[facility]i TAKE 1 TAKE 1 tablet ty TABLET BY TABLET BY TAKE 1 [facility] MOUTH EVERY MOUTH EVERY TABLET BY l DAY DAY MOUTH Clinics EVERY DAY atorvastati atorvastati No atorvastat [place] n 40 mg n 40 mg in 40 mg Commu ni tablet TAKE tablet TAKE tablet ty 1 TABLET BY 1 TABLET BY TAKE 1 Hospita MOUTH EVERY MOUTH EVERY TABLET BY l DAY DAY MOUTH Clinics EVERY DAY BD Kalee 2nd BD Kalee 2nd No BD Kalee [place] Gen Pen Gen Pen 2nd Gen Commun i Needle 32 Needle 32 Pen Needle ty gauge x gauge x 32 gauge x [facility] 32" 1 " 1 " 1 l TIME A DAY TIME A DAY TIME A DAY Clinics cholecalcif cholecalcif No cholecalci [place] ghada ghada ferol Communi (vitamin (vitamin (vitamin ty D3) 1,250 D3) 1,250 D3) 1,250 Hospita mcg (50,000 mcg (50,000 mcg l unit) unit) (50,000 Clinics capsule capsule unit) TAKE 1 TAKE 1 capsule CAPSULE CAPSULE TAKE 1 EVERY 15 EVERY 15 CAPSULE DAYS DAYS EVERY 15 DAYS clonazepam clonazepam No clonazepam [place] 0.5 mg 0.5 mg 0.5 mg Communi tablet TAKE tablet TAKE tablet ty 1 TABLET BY 1 TABLET BY TAKE 1 Hospita MOUTH TWICE MOUTH TWICE TABLET BY l A DAY A DAY MOUTH Clinic s DIRECTED DIRECTED TWICE A PRn PRn DAY DIRECTED PRn dicyclomine dicyclomine No 1capsul TID dicyclomin [place] 10 mg 10 mg e(s) e 10 mg Communi capsule capsule capsule ty Take 1 Take 1 Take 1 Hospita capsule 3 capsule 3 capsule 3 l times a day times a day times a Clinics by oral by oral day by route as route as oral route needed. needed. as needed. doxycycline doxycycline No 1capsul BID doxycyclin [place] hyclate 100 hyclate 100 e(s) e hyclate Communi mg capsule mg capsule 100 mg t y Take 1 Take 1 capsule Hospita capsule capsule Take 1 l twice a day twice a day capsule Clinics by oral by oral twice a route. route. day by oral route. Eliquis 5 Eliquis 5 No Eliquis 5 [place] mg tablet mg tablet mg tablet Communi TAKE 1 TAKE 1 TAKE 1 ty TABLET BY TABLET BY TABLET BY Hospita MOUTH 2 MOUTH 2 MOUTH 2 l (TWO) TIMES (TWO) TIMES (TWO) Clinics DAILY. DAILY. TIMES INDICATIONS INDICATIONS DAILY. ATRIAL ATRIAL INDICATION FIBRILLATIO FIBRILLATIO S ATRIAL N N FIBRILLATI ON Humatrope 6 Humatrope 6 No Humatrope [place] mg (18 mg (18 6 mg (18 Communi unit) unit) unit) ty injection injection injection [facility] cartridge cartridge cartridge l inject 0.2 inject 0.2 inject 0.2 Clinics ml SQ daily ml SQ daily ml SQ daily hydrocortis hydrocortis No hydrocorti [place] one 20 mg one 20 mg sone [...] HALF IN PM isosorbide isosorbide No isosorbide [place] mononitrate mononitrate mononitrat Communi ER 30 mg ER 30 mg e ER 30 mg t y tablet,exte tablet,exte tablet,ext Hospita nded nded ended l release 24 release 24 release 24 Clinics hr TAKE 1 hr TAKE 1 hr TAKE 1 TABLET BY TABLET BY TABLET BY MOUTH EVERY MOUTH EVERY MOUTH DAY DAY EVERY DAY Klor-Con 10 Klor-Con 10 No Klor-Con [place] mEq mEq 10 mEq Communi tablet,exte tablet,exte tablet,ext ty nded nded ended Hospita release release release l TAKE 1 TAKE 1 TAKE 1 Clinics TABLET BY TABLET BY TABLET BY MOUTH EVERY MOUTH EVERY MOUTH DAY WITH DAY WITH EVERY DAY FOOD FOOD WITH FOOD levothyroxi levothyroxi No levothyrox [place] ne 112 mcg ne 112 mcg ine [...] tablet 1 [facility] mirtazapine No mirtazapin [place] 15 mg 15 mg e 15 mg Communi tablet TAKE tablet TAKE tablet ty 1 TABLET BY 1 [facility] TABLET BY l EVERYDAY AT EVERYDAY AT MOUTH Clinics BEDTIME BEDTIME EVERYDAY AT BEDTIME nitroglycer nitroglycer No 1 nitroglyce [place] in 0.4 mg in 0.4 mg rin 0.4 mg Communi sublingual sublingual sublingual ty tablet tablet tablet [facility] [address] 1 l tablet as tablet as tablet as Clinics needed by needed by needed by sublingual sublingual sublingual route. route. route. OneTouch OneTouch No OneTouch Swe madeleine Delica Delica Delica Communi Lancets 30 Lancets 30 Lancets 30 ty gauge TEST gauge TEST gauge TEST [facility] TWICE A DAY TWICE A DAY TWICE A l DAY Clinics OneTouch OneTouch No OneTouch Swe madeleine Verio Flex Verio Flex Verio Flex Communi Meter FOR Meter FOR Meter FOR ty TESTING.1 TESTING.1 TESTING.1 [facility] BOX ICD 10 BOX ICD 10 BOX ICD 10 l E11.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.65 Clinics OneTouch OneTouch No OneTouch Swe madeleine Verio test Verio test Verio test Communi strips TEST strips TEST strips ty TWICE A DAY TWICE A DAY TEST TWICE Hospita A DAY Clinics Santyl 250 Santyl 250 No Santyl 250 [place] unit/gram unit/gram unit/gram Communi topical topical topical ty ointment ointment ointment [facility] APPLY A APPLY A APPLY A l DIONY DIONY DIONY Clinics THICK THICK THICK AMOUNT TO AMOUNT TO AMOUNT TO WOUND 3 WOUND 3 WOUND 3 TIMES A TIMES A TIMES A WEEK WEEK WEEK simvastatin simvastatin No simvastati [place] 40 mg 40 mg n 40 mg Communi tablet TAKE tablet TAKE tablet ty 1 TABLET 1 TABLET TAKE 1 Hospi ta (40 MG) BY (40 MG) BY TABLET (40 l MOUTH DAILY MOUTH DAILY MG) BY Clinics IN THE IN THE MOUTH EVENING NOT EVENING NOT DAILY IN TAKING TAKING THE EVENING NOT TAKING sotalol 160 sotalol 160 No sotalol [place] mg tablet mg tablet 160 mg Com raz TAKE 1 TAKE 1 tablet ty TABLET BY TABLET BY TAKE 1 [facility] MOUTH EVERY MOUTH EVERY TABLET BY l DAY DAY MOUTH Clinics EVERY DAY tramadol 50 tramadol 50 No tramadol [place] mg tablet mg tablet 50 mg Comm uni TAKE 1 TAKE 1 tablet ty TABLET BY TABLET BY TAKE 1 [facility] MOUTH EVERY MOUTH EVERY TABLET BY l 6 HOURS 6 HOURS MOUTH Clinics EVERY 6 HOURS amlodipine amlodipine No amlodipine [place] 5 mg tablet 5 mg tablet 5 mg C om[facility]i TAKE 1 TAKE 1 tablet ty TABLET BY TABLET BY TAKE 1 [facility] MOUTH EVERY MOUTH EVERY TABLET BY l DAY DAY MOUTH Clinics EVERY DAY atorvastati atorvastati No atorvastat [place] n 40 mg n 40 mg in 40 mg Commu ni tablet TAKE tablet TAKE tablet ty 1 TABLET BY 1 TABLET BY TAKE 1 Hospita MOUTH EVERY MOUTH EVERY TABLET BY l DAY DAY MOUTH Clinics EVERY DAY BD Kalee 2nd BD Kalee 2nd No BD Kalee [place] Gen Pen Gen Pen 2nd Gen Commun i Needle 32 Needle 32 Pen Needle ty gauge x gauge x 32 gauge x [facility] /32" 1 32" 1 32" 1 l TIME A DAY TIME A DAY TIME A DAY Clinics cholecalcif cholecalcif No cholecalci [place] ghada ghada ferol Communi (vitamin (vitamin (vitamin ty D3) 1,250 D3) 1,250 D3) 1,250 Hospita mcg (50,000 mcg (50,000 mcg l unit) unit) (50,000 Clinics capsule capsule unit) TAKE 1 TAKE 1 capsule CAPSULE CAPSULE TAKE 1 EVERY 15 EVERY 15 CAPSULE DAYS DAYS EVERY 15 DAYS clonazepam clonazepam No clonazepam [place] 0.5 mg 0.5 mg 0.5 mg Communi tablet TAKE tablet TAKE tablet ty 1 TABLET BY 1 TABLET BY TAKE 1 Hospita MOUTH TWICE MOUTH TWICE TABLET BY l A DAY A DAY MOUTH Clinic s DIRECTED DIRECTED TWICE A PRn PRn DAY DIRECTED PRn dicyclomine dicyclomine No dicyclomin [place] 10 mg 10 mg e 10 mg Communi capsule capsule capsule ty TAKE 1 TAKE 1 TAKE 1 Hospita CAPSULE BY CAPSULE BY CAPSULE BY l MOUTH THREE MOUTH THREE MOUTH Clinics TIMES A DAY TIMES A DAY THREE NEEDED NEEDED TIMES A DAY NEEDED doxycycline doxycycline No doxycyclin [place] hyclate 100 hyclate 100 e hyclate Communi mg capsule mg capsule 100 mg t y TAKE 1 TAKE 1 capsule Hospita CAPSULE BY CAPSULE BY TAKE 1 l MOUTH TWICE MOUTH TWICE CAPSULE BY Clinics A DAY A DAY MOUTH TWICE A DAY Eliquis 5 Eliquis 5 No Eliquis 5 [place] mg tablet mg tablet mg tablet Communi TAKE 1 TAKE 1 TAKE 1 ty TABLET BY TABLET BY TABLET BY Hospita MOUTH 2 MOUTH 2 MOUTH 2 l (TWO) TIMES (TWO) TIMES (TWO) Clinics DAILY. DAILY. TIMES INDICATIONS INDICATIONS DAILY. ATRIAL ATRIAL INDICATION FIBRILLATIO FIBRILLATIO S ATRIAL N N FIBRILLATI ON Humatrope 6 Humatrope 6 No Humatrope [place] mg (18 mg (18 6 mg (18 Communi unit) unit) unit) ty injection injection injection [facility] cartridge cartridge cartridge l INJECT INJECT INJECT Clinics 0.3MG 0.3MG 0.3MG SUBCUTANEOU SUBCUTANEOU SUBCUTANEO SLY EVERY SLY EVERY USLY EVERY DAY DAY DAY hydrocortis hydrocortis No hydrocorti [place] one 20 mg one 20 mg sone [...] HALF IN PM isosorbide isosorbide No isosorbide [place] mononitrate mononitrate mononitrat Communi ER 30 mg ER 30 mg e ER 30 mg t y tablet,exte tablet,exte tablet,ext Hospita nded nded ended l release 24 release 24 release 24 Clinics hr TAKE 1 hr TAKE 1 hr TAKE 1 TABLET BY TABLET BY TABLET BY MOUTH EVERY MOUTH EVERY MOUTH DAY DAY EVERY DAY Klor-Con 10 Klor-Con 10 No Klor-Con [place] mEq mEq 10 mEq Communi tablet,exte tablet,exte tablet,ext ty nded nded ended Hospita release release release l TAKE 1 TAKE 1 TAKE 1 Clinics TABLET BY TABLET BY TABLET BY MOUTH EVERY MOUTH EVERY MOUTH DAY WITH DAY WITH EVERY DAY FOOD FOOD WITH FOOD levothyroxi levothyroxi No levothyrox [place] ne 112 mcg ne 112 mcg ine [...] ty qd qd po qd Hospita l Clinics mirtazapine mirtazapine No mirtazapin [place] 15 mg 15 mg e 15 mg Communi tablet TAKE tablet TAKE tablet ty 1 TABLET BY 1 TABLET BY TAKE 1 Hospita MOUTH MOUTH TABLET BY l EVERYDAY AT EVERYDAY AT MOUTH Clinics BEDTIME BEDTIME EVERYDAY AT BEDTIME Myrbetriq Myrbetriq No 1 Q1D Myrbetriq [place] 25 mg 25 mg 25 mg Communi tablet,exte tablet,exte tablet,ext ty nded nded ended Hospita release release release l Take 1 Take 1 Take 1 Clinics tablet tablet tablet every day every day every day by oral by oral by oral route. route. route. nitroglycer nitroglycer No 1 nitroglyce [place] in 0.4 mg in 0.4 mg rin [...] ty gauge TEST gauge TEST gauge TEST [facility] TWICE A DAY TWICE A DAY [...] Santyl 250 Santyl 250 No Santyl 250 [place] unit/gram unit/gram unit/gram Communi topical topical topical ty ointment ointment ointment [facility] APPLY A APPLY A APPLY A l DIONY DIONY DIONY [facility] THICK THICK THICK AMOUNT TO AMOUNT TO AMOUNT TO WOUND 3 WOUND 3 WOUND 3 TIMES A TIMES A TIMES A WEEK WEEK WEEK simvastatin simvastatin No simvastati [place] 40 mg 40 mg n 40 mg Communi tablet TAKE tablet TAKE tablet ty 1 TABLET 1 TABLET TAKE 1 Hospi ta (40 MG) BY (40 MG) BY TABLET (40 l MOUTH DAILY MOUTH DAILY MG) BY Clinics IN THE IN THE MOUTH EVENING NOT EVENING NOT DAILY IN TAKING TAKING THE EVENING NOT TAKING sotalol 160 sotalol 160 No sotalol [place] mg tablet mg tablet 160 mg Com raz TAKE 1 TAKE 1 tablet ty TABLET BY TABLET BY TAKE 1 [facility] MOUTH EVERY MOUTH EVERY TABLET BY l DAY DAY MOUTH Clinics EVERY DAY tramadol 50 tramadol 50 No tramadol [place] mg tablet mg tablet 50 mg Comm uni TAKE 1 TAKE 1 tablet ty TABLET BY TABLET BY TAKE 1 [facility] MOUTH EVERY MOUTH EVERY TABLET BY l 6 HOURS 6 HOURS MOUTH Clinics EVERY 6 HOURS amlodipine amlodipine No amlodipine [place] 5 mg tablet 5 mg tablet 5 mg C om[facility]i TAKE 1 TAKE 1 tablet ty TABLET BY TABLET BY TAKE 1 [facility] MOUTH EVERY MOUTH EVERY TABLET BY l DAY DAY MOUTH Clinics EVERY DAY atorvastati atorvastati No atorvastat [place] n 40 mg n 40 mg in 40 mg Commu ni tablet TAKE tablet TAKE tablet ty 1 TABLET BY 1 TABLET BY TAKE 1 Hospita MOUTH EVERY MOUTH EVERY TABLET BY l DAY DAY MOUTH Clinics EVERY DAY BD Kalee 2nd BD Kalee 2nd No BD Kalee [place] Gen Pen Gen Pen 2nd Gen Commun i Needle 32 Needle 32 Pen Needle ty gauge x gauge x 32 gauge x [facility] " 1 " 1 " 1 l TIME A DAY TIME A DAY TIME A DAY Clinics cholecalcif cholecalcif No cholecalci [place] ghada ghada ferol Communi (vitamin (vitamin (vitamin ty D3) 1,250 D3) 1,250 D3) 1,250 Hospita mcg (50,000 mcg (50,000 mcg l unit) unit) (50,000 Clinics capsule capsule unit) TAKE 1 TAKE 1 capsule CAPSULE CAPSULE TAKE 1 EVERY 15 EVERY 15 CAPSULE DAYS DAYS EVERY 15 DAYS clonazepam clonazepam No clonazepam [place] 0.5 mg 0.5 mg 0.5 mg Communi tablet TAKE tablet TAKE tablet ty 1 TABLET BY 1 TABLET BY TAKE 1 Hospita MOUTH TWICE MOUTH TWICE TABLET BY l A DAY A DAY MOUTH Clinic s DIRECTED DIRECTED TWICE A PRn PRn DAY DIRECTED PRn dicyclomine dicyclomine No dicyclomin [place] 10 mg 10 mg e 10 mg [...] DAY EVERY DAY doxycycline doxycycline No doxycyclin [place] hyclate 100 hyclate 100 e hyclate Communi mg capsule mg capsule 100 mg t y TAKE 1 TAKE 1 capsule Hospita CAPSULE BY CAPSULE BY TAKE 1 l MOUTH TWICE MOUTH TWICE CAPSULE BY Clinics A DAY A DAY MOUTH TWICE A DAY Eliquis 2.5 Eliquis 2.5 No Eliquis [place] mg tablet mg tablet 2.5 mg Com raz TAKE 1 TAKE 1 tablet ty TABLET BY TABLET BY TAKE 1 [facility] MOUTH TWICE MOUTH TWICE TABLET BY l A DAY A DAY MOUTH Clinics TWICE A DAY Eliquis 5 Eliquis 5 No Eliquis 5 [place] mg tablet mg tablet mg tablet Communi TAKE 1 TAKE 1 TAKE 1 ty TABLET BY TABLET BY TABLET BY Hospita MOUTH 2 MOUTH 2 MOUTH 2 l (TWO) TIMES (TWO) TIMES (TWO) Clinics DAILY. DAILY. TIMES INDICATIONS INDICATIONS DAILY. ATRIAL ATRIAL INDICATION FIBRILLATIO FIBRILLATIO S ATRIAL N N FIBRILLATI ON glipizide glipizide No glipizide [place] ER 2.5 mg ER 2.5 mg ER 2.5 mg Communi tablet, tablet, tablet, ty extended extended extended [facility] release 24 release 24 release 24 l hr hr hr Clinics Humatrope 6 Humatrope 6 No Humatrope [place] mg (18 mg (18 6 mg (18 Communi unit) unit) unit) ty injection injection injection [facility] cartridge cartridge cartridge l INJECT INJECT INJECT Clinics 0.3MG 0.3MG 0.3MG SUBCUTANEOU SUBCUTANEOU SUBCUTANEO SLY EVERY SLY EVERY USLY EVERY DAY DAY DAY hydrocortis hydrocortis No hydrocorti [place] one 20 mg one 20 mg sone 20 mg Communi tablet TAKE tablet TAKE tablet ty 2 TABLETS 2 TABLETS TAKE 2 [facility] BY MOUTH BY MOUTH TABLETS BY l EVERY DAY EVERY DAY MOUTH Clin ics IN THE IN THE EVERY DAY MORNING MORNING IN THE MORNING isosorbide isosorbide No isosorbide [place] mononitrate mononitrate mononitrat Communi ER 30 mg ER 30 mg e ER 30 mg t y tablet,exte tablet,exte tablet,ext Hospita nded nded ended l release 24 release 24 release 24 Clinics hr TAKE 1 hr TAKE 1 hr TAKE 1 TABLET BY TABLET BY TABLET BY MOUTH EVERY MOUTH EVERY MOUTH DAY DAY EVERY DAY Klor-Con 10 Klor-Con 10 No Klor-Con [place] mEq mEq 10 mEq Communi tablet,exte tablet,exte tablet,ext ty nded nded ended Hospita release release release l TAKE 1 TAKE 1 TAKE 1 Clinics TABLET BY TABLET BY TABLET BY MOUTH EVERY MOUTH EVERY MOUTH DAY WITH DAY WITH EVERY DAY FOOD FOOD WITH FOOD levothyroxi levothyroxi No levothyrox [place] ne 112 mcg ne 112 mcg ine 112 Communi tablet 1 tablet 1 mcg tablet t y TAB DAILY TAB DAILY 1 TAB Hosp [facility] 1/2 HR. 1/2 HR. DAILY 1/2 l BEFORE BEFORE HR. BEFORE Clini cs BREAKFAST BREAKFAST BREAKFAST WITH WATER WITH WATER WITH WATER lidocaine 5 lidocaine 5 No lidocaine [place] % topical % topical 5 % Commu ni patch patch topical ty patch [facility] liothyronin liothyronin No liothyroni [place] e 5 mcg e 5 mcg ne 5 mcg Commu ni tablet tablet tablet ty [facility] losartan losartan No losartan Swe [facility] 100 mg 100 mg 100 mg Communi tablet 1 po tablet 1 po tablet 1 ty qd qd po qd [facility] mirtazapine mirtazapine No mirtazapin [place] 15 mg 15 mg e 15 mg Communi tablet TAKE tablet TAKE tablet ty 1 TABLET BY 1 TABLET BY TAKE 1 Hospita MOUTH MOUTH TABLET BY l EVERYDAY AT EVERYDAY AT MOUTH Clinics BEDTIME BEDTIME EVERYDAY AT BEDTIME Myrbetriq Myrbetriq No 1 Q1D Myrbetriq [place] 25 mg 25 mg 25 mg Communi tablet,exte tablet,exte tablet,ext ty nded nded ended Hospita release release release l Take 1 Take 1 Take 1 Clinics tablet tablet tablet every day every day every day by oral by oral by oral route. route. route. nitroglycer nitroglycer No 1 nitroglyce [place] in 0.4 mg in 0.4 mg rin 0.4 mg Communi sublingual sublingual sublingual ty tablet tablet tablet Hospita Place [address] 1 l tablet as tablet as tablet as Clinics needed by needed by needed by sublingual sublingual sublingual route. route. route. omeprazole omeprazole No omeprazole [place] 20 mg 20 mg 20 mg Communi [...] DAY l Clinics pantoprazol pantoprazol No pantoprazo [place] e 40 mg e 40 mg le 40 mg Commu ni tablet,indira tablet,indira tablet,del ty yed release yed release ayed H ospita release l Clinics potassium potassium No potassium [place] chloride ER chloride ER chloride Communi 20 mEq 20 mEq ER 20 mEq ty tablet,exte tablet,exte tablet,ext Hospita nded nded ended l release(par release(par release(ri Clinics t/cryst) t/cryst) rt/cryst) TAKE 1 TAKE 1 TAKE 1 TABLET BY TABLET BY TABLET BY MOUTH EVERY MOUTH EVERY MOUTH DAY DAY EVERY DAY Santyl 250 Santyl 250 No Santyl 250 [place] unit/gram unit/gram unit/gram Communi topical topical topical ty ointment ointment ointment [facility] APPLY A APPLY A APPLY A l DIONY DIONY DIONY [facility] THICK THICK THICK AMOUNT TO AMOUNT TO AMOUNT TO WOUND 3 WOUND 3 WOUND 3 TIMES A TIMES A TIMES A WEEK WEEK WEEK simvastatin simvastatin No simvastati [place] 40 mg 40 mg n 40 mg Communi tablet TAKE tablet TAKE tablet ty 1 TABLET 1 TABLET TAKE 1 Hospi ta (40 MG) BY (40 MG) BY TABLET (40 l MOUTH DAILY MOUTH DAILY MG) BY Clinics IN THE IN THE MOUTH EVENING NOT EVENING NOT DAILY IN TAKING TAKING THE EVENING NOT TAKING sotalol 160 sotalol 160 No sotalol [place] mg tablet mg tablet 160 mg Com raz TAKE 1 TAKE 1 tablet ty TABLET BY TABLET BY TAKE 1 [facility] MOUTH EVERY MOUTH EVERY TABLET BY l DAY DAY MOUTH Clinics EVERY DAY tramadol 50 tramadol 50 No tramadol [place] mg tablet mg tablet 50 mg Comm uni TAKE 1 TAKE 1 tablet ty TABLET BY TABLET BY TAKE 1 [facility] MOUTH AT MOUTH AT TABLET BY l BEDTIME AND BEDTIME AND MOUTH AT Clinics IN MORNING IN MORNING BEDTIME AND IN MORNING amlodipine amlodipine No amlodipine [place] 5 mg tablet 5 mg tablet 5 mg C [facility]i TAKE 1 TAKE 1 tablet ty TABLET BY TABLET BY TAKE 1 [facility] MOUTH EVERY MOUTH EVERY TABLET BY l DAY DAY MOUTH Clinics EVERY DAY BD Aklee 2nd BD Kalee 2nd No BD Kalee [place] Gen Pen Gen Pen 2nd Gen Commun i Needle 32 Needle 32 Pen Needle ty gauge x gauge x 32 gauge x [facility] " 1 " 1 " 1 l TIME A DAY TIME A DAY TIME A DAY Clinics cholecalcif cholecalcif No cholecalci [place] ghada ghada ferol Communi (vitamin (vitamin (vitamin ty D3) 1,250 D3) 1,250 D3) 1,250 Hospita mcg (50,000 mcg (50,000 mcg l unit) unit) (50,000 Clinics capsule capsule unit) TAKE 1 TAKE 1 capsule CAPSULE CAPSULE TAKE 1 EVERY 15 EVERY 15 CAPSULE DAYS DAYS EVERY 15 DAYS clonazepam clonazepam No clonazepam [place] 0.5 mg 0.5 mg 0.5 mg Communi [...] DAY EVERY DAY famotidine famotidine No famotidine [place] 20 mg 20 mg 20 mg Communi tablet Take tablet Take tablet ty 1 tablet 1 tablet Take 1 Hospi ta daily by daily by tablet l mouth mouth daily by Clinics mouth ferrous ferrous No ferrous [place] sulfate 220 sulfate 220 sulfate Communi mg (44 mg mg (44 mg 220 mg (44 ty iron)/5 mL iron)/5 mL mg iron)/5 Hospita oral elixir oral elixir mL oral l Take 5 ML Take 5 ML elixir Cli nics BID by BID by Take 5 ML mouth mouth BID by mouth glipizide glipizide No glipizide [place] ER 2.5 mg ER 2.5 mg ER 2.5 mg Communi tablet, tablet, tablet, ty extended extended extended [facility] release 24 release 24 release 24 l hr hr hr Clinics Humatrope 6 Humatrope 6 No Humatrope [place] mg (18 mg (18 6 mg (18 Communi unit) unit) unit) ty injection injection injection [facility] cartridge cartridge cartridge l INJECT INJECT INJECT Clinics 0.3MG 0.3MG 0.3MG SUBCUTANEOU SUBCUTANEOU SUBCUTANEO SLY EVERY SLY EVERY USLY EVERY DAY DAY DAY hydrocortis hydrocortis No hydrocorti [place] one 20 mg one 20 mg sone 20 mg Communi tablet TAKE tablet TAKE tablet ty 2 TABLETS 2 TABLETS TAKE 2 [facility] BY MOUTH BY MOUTH TABLETS BY l EVERY DAY EVERY DAY MOUTH Clin ics IN THE IN THE EVERY DAY MORNING MORNING IN THE MORNING isosorbide isosorbide No isosorbide [place] mononitrate mononitrate mononitrat Communi ER 30 mg ER 30 mg e ER 30 mg t y tablet,exte tablet,exte tablet,ext Hospita nded nded ended l release 24 release 24 release 24 Clinics hr TAKE 1 hr TAKE 1 hr TAKE 1 TABLET BY TABLET BY TABLET BY MOUTH EVERY MOUTH EVERY MOUTH DAY DAY EVERY DAY Klor-Con 10 Klor-Con 10 No Klor-Con [place] mEq mEq 10 mEq Communi tablet,exte tablet,exte tablet,ext ty nded nded ended Hospita release release release l TAKE 1 TAKE 1 TAKE 1 Clinics TABLET BY TABLET BY TABLET BY MOUTH EVERY MOUTH EVERY MOUTH DAY WITH DAY WITH EVERY DAY FOOD FOOD WITH FOOD levothyroxi levothyroxi No levothyrox [place] ne 112 mcg ne 112 mcg ine 112 Communi tablet 1 tablet 1 mcg tablet t y TAB DAILY TAB DAILY 1 TAB [facility] 1/2 HR. 1/2 HR. DAILY 1/2 l BEFORE BEFORE HR. BEFORE Clini cs BREAKFAST BREAKFAST BREAKFAST WITH WATER WITH WATER WITH WATER lidocaine 5 lidocaine 5 No lidocaine [place] % topical % topical 5 % Commu ni patch patch topical ty patch [facility] liothyronin liothyronin No liothyroni [place] e 5 mcg e 5 mcg ne 5 mcg Commu ni tablet tablet tablet ty [facility] mirtazapine mirtazapine No mirtazapin [place] 15 mg 15 mg e 15 mg Communi tablet TAKE tablet TAKE tablet ty 1 TABLET BY 1 TABLET BY TAKE 1 Hospita MOUTH MOUTH TABLET BY l EVERYDAY AT EVERYDAY AT MOUTH Clinics BEDTIME BEDTIME EVERYDAY AT BEDTIME nitroglycer nitroglycer No 1 nitroglyce [place] in 0.4 mg in 0.4 mg rin 0.4 mg Communi sublingual sublingual sublingual ty tablet [facility] [address] 1 l tablet as tablet as tablet as Clinics needed by needed by needed by sublingual sublingual sublingual route. route. route. omeprazole omeprazole No omeprazole [place] 20 mg 20 mg 20 mg Communi [...] ty gauge TEST gauge TEST gauge TEST [facility] TWICE A DAY TWICE A DAY [...] DAY l Clinics pantoprazol pantoprazol No pantoprazo [place] e 40 mg e 40 mg le 40 mg Commu ni tablet,indira tablet,indira tablet,del ty yed release yed release ayed H ospita Take 1 Take 1 release l tablet BID tablet BID Take 1 C linics by mouth by mouth tablet BID by mouth potassium potassium No potassium [place] chloride ER chloride ER chloride Communi 20 mEq 20 mEq ER 20 mEq ty tablet,exte tablet,exte tablet,ext Hospita nded nded ended l release(par release(par release(ri Clinics t/cryst) t/cryst) rt/cryst) TAKE 1 TAKE 1 TAKE 1 TABLET BY TABLET BY TABLET BY MOUTH EVERY MOUTH EVERY MOUTH DAY DAY EVERY DAY Santyl 250 Santyl 250 No Santyl 250 [place] unit/gram unit/gram unit/gram Communi topical topical topical ty ointment ointment ointment [facility] APPLY A APPLY A APPLY A l [facility] THICK THICK THICK AMOUNT TO AMOUNT TO AMOUNT TO WOUND 3 WOUND 3 WOUND 3 TIMES A TIMES A TIMES A WEEK WEEK WEEK sotalol 160 sotalol 160 No sotalol [place] mg tablet mg tablet 160 mg Com raz TAKE 1 TAKE 1 tablet ty TABLET BY TABLET BY TAKE 1 [facility] MOUTH EVERY MOUTH EVERY TABLET BY l DAY DAY MOUTH Clinics EVERY DAY tramadol 50 tramadol 50 No tramadol [place] mg tablet mg tablet 50 mg Comm uni TAKE 1 TAKE 1 tablet ty TABLET BY TABLET BY TAKE 1 [facility] MOUTH AT MOUTH AT TABLET BY l BEDTIME AND BEDTIME AND MOUTH AT Clinics IN MORNING IN MORNING BEDTIME AND IN MORNING amlodipine amlodipine No amlodipine [place] 5 mg tablet 5 mg tablet 5 mg C [facility] TAKE 1 TAKE 1 tablet ty TABLET BY TABLET BY TAKE 1 [facility] MOUTH EVERY MOUTH EVERY TABLET BY l DAY DAY MOUTH Clinics EVERY DAY Bactrim DS Bactrim DS No 1 Q12H Bactrim DS [place] 800 mg-160 800 mg-160 800 mg-160 Communi mg tablet mg tablet mg tablet ty Take 1 Take 1 Take 1 Hospita tablet tablet tablet l every 12 every 12 every 12 Cli nics hours by hours by hours by oral route oral route oral route for 7 days. for 7 days. for 7 days. BD Kalee 2nd BD Kalee 2nd No BD Kalee [place] Gen Pen Gen Pen 2nd Gen Commun i Needle 32 Needle 32 Pen Needle ty gauge x gauge x 32 gauge x [facility] " 1 " 1 " 1 l TIME A DAY TIME A DAY TIME A DAY Clinics cholecalcif cholecalcif No cholecalci [place] ghada ghada ferol Communi (vitamin (vitamin (vitamin ty D3) 1,250 D3) 1,250 D3) 1,250 Hospita mcg (50,000 mcg (50,000 mcg l unit) unit) (50,000 Clinics capsule capsule unit) TAKE 1 TAKE 1 capsule CAPSULE CAPSULE TAKE 1 EVERY 15 EVERY 15 CAPSULE DAYS DAYS EVERY 15 DAYS clonazepam clonazepam No clonazepam [place] 0.5 mg 0.5 mg 0.5 mg Communi tablet TAKE tablet TAKE tablet ty 1 TABLET BY 1 TABLET BY TAKE 1 Hospita MOUTH ONCE MOUTH ONCE TABLET BY l A DAY A DAY MOUTH ONCE C linics NEEDED NEEDED A DAY NEEDED cyclobenzap cyclobenzap No cyclobenza [place] rine 10 mg rine 10 mg rita 10 Communi tablet tablet mg tablet ty Hospita l Clinics diclofenac diclofenac No diclofenac [place] sodium 75 sodium 75 sodium 75 Communi [...] DAY EVERY DAY famotidine famotidine No famotidine [place] 20 mg 20 mg 20 mg Communi tablet Take tablet Take tablet ty 1 tablet 1 tablet Take 1 Hospi ta daily by daily by tablet l mouth mouth daily by Clinics mouth ferrous ferrous No ferrous [place] sulfate 220 sulfate 220 sulfate Communi mg (44 mg mg (44 mg 220 mg (44 ty iron)/5 mL iron)/5 mL mg iron)/5 Hospita oral elixir oral elixir mL oral l Take 5 ML Take 5 ML elixir Cli nics BID by BID by Take 5 ML mouth mouth BID by mouth glipizide glipizide No glipizide [place] ER 2.5 mg ER 2.5 mg ER 2.5 mg Communi tablet, tablet, tablet, ty extended extended extended [facility] release 24 release 24 release 24 l hr hr hr Clinics Humatrope 6 Humatrope 6 No Humatrope [place] mg (18 mg (18 6 mg (18 Communi unit) unit) unit) ty injection injection injection [facility] cartridge cartridge cartridge l INJECT INJECT INJECT Clinics 0.3MG 0.3MG 0.3MG SUBCUTANEOU SUBCUTANEOU SUBCUTANEO SLY EVERY SLY EVERY USLY EVERY DAY DAY DAY hydrocortis hydrocortis No hydrocorti [place] one 20 mg one 20 mg sone 20 mg Communi tablet TAKE tablet TAKE tablet ty 2 TABLETS 2 TABLETS TAKE 2 [facility] BY MOUTH BY MOUTH TABLETS BY l EVERY DAY EVERY DAY MOUTH Clin ics IN THE IN THE EVERY DAY MORNING MORNING IN THE MORNING isosorbide isosorbide No isosorbide [place] mononitrate mononitrate mononitrat Communi ER 30 mg ER 30 mg e ER 30 mg t y tablet,exte tablet,exte tablet,ext Hospita nded nded ended l release 24 release 24 release 24 Clinics hr TAKE 1 hr TAKE 1 hr TAKE 1 TABLET BY TABLET BY TABLET BY MOUTH EVERY MOUTH EVERY MOUTH DAY DAY EVERY DAY Klor-Con 10 Klor-Con 10 No Klor-Con [place] mEq mEq 10 mEq Communi tablet,exte tablet,exte tablet,ext ty nded nded ended Hospita release release release l TAKE 1 TAKE 1 TAKE 1 Clinics TABLET BY TABLET BY TABLET BY MOUTH EVERY MOUTH EVERY MOUTH DAY WITH DAY WITH EVERY DAY FOOD FOOD WITH FOOD levothyroxi levothyroxi No levothyrox [place] ne 112 mcg ne 112 mcg ine 112 Communi tablet 1 tablet 1 mcg tablet t y TAB DAILY TAB DAILY 1 TAB [facility] 1/2 HR. 1/2 HR. DAILY 1/2 l BEFORE BEFORE HR. BEFORE Clini cs BREAKFAST BREAKFAST BREAKFAST WITH WATER WITH WATER WITH WATER lidocaine 5 lidocaine 5 No lidocaine [place] % topical % topical 5 % Commu ni patch patch topical ty patch [facility] liothyronin liothyronin No liothyroni [place] e 5 mcg e 5 mcg ne 5 mcg Commu ni tablet tablet tablet ty [facility] mirtazapine mirtazapine No mirtazapin [place] 15 mg 15 mg e 15 mg Communi tablet TAKE tablet TAKE tablet ty 1 TABLET BY 1 TABLET BY TAKE 1 Hospita MOUTH MOUTH TABLET BY l EVERYDAY AT EVERYDAY AT MOUTH Clinics BEDTIME BEDTIME EVERYDAY AT BEDTIME nitroglycer nitroglycer No 1 nitroglyce [place] in 0.4 mg in 0.4 mg rin 0.4 mg Communi sublingual sublingual sublingual ty tablet [facility] [address] 1 l tablet as tablet as tablet as Clinics needed by needed by needed by sublingual sublingual sublingual route. route. route. 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 Clinics OneTouch OneTouch No OneTouch Swe madeleine Verio test Verio test Verio test Communi strips TEST strips TEST strips ty TWICE A DAY TWICE A DAY TEST TWICE Hospita A DAY Clinics pantoprazol pantoprazol No pantoprazo [place] e 40 mg e 40 mg le 40 mg Commu ni tablet,indira tablet,indira tablet,del ty yed release yed release ayed H ospita Take 1 Take 1 release l tablet BID tablet BID Take 1 C linics by mouth by mouth tablet BID by mouth potassium potassium No potassium [place] chloride ER chloride ER chloride Communi 20 [...] Santyl 250 Santyl 250 No Santyl 250 [place] unit/gram unit/gram unit/gram Communi topical topical topical ty ointment ointment ointment [facility] APPLY A APPLY A APPLY A l DIONY [facility] THICK THICK THICK AMOUNT TO AMOUNT TO AMOUNT TO WOUND 3 WOUND 3 WOUND 3 TIMES A TIMES A TIMES A WEEK WEEK WEEK sotalol 160 sotalol 160 No sotalol [place] mg tablet mg tablet 160 mg Com raz TAKE 1 TAKE 1 tablet ty TABLET BY TABLET BY TAKE 1 [facility] MOUTH EVERY MOUTH EVERY TABLET BY l DAY DAY MOUTH Clinics EVERY DAY tramadol 50 tramadol 50 No tramadol [place] mg tablet mg tablet 50 mg Comm uni TAKE 1 TAKE 1 tablet ty TABLET BY TABLET BY TAKE 1 [facility] MOUTH AT MOUTH AT TABLET BY l BEDTIME AND BEDTIME AND MOUTH AT Clinics IN MORNING IN MORNING BEDTIME AND IN MORNING amlodipine amlodipine No amlodipine [place] 5 mg tablet 5 mg tablet 5 mg [facility] TAKE 1 TAKE 1 tablet ty TABLET BY TABLET BY TAKE 1 [facility] MOUTH EVERY MOUTH EVERY TABLET BY l DAY DAY MOUTH Clinics EVERY DAY atorvastati atorvastati No atorvastat [place] n 20 mg n 20 mg in 20 mg Commu ni tablet TAKE tablet TAKE tablet ty 1 TABLET BY 1 TABLET BY TAKE 1 Hospita MOUTH EVERY MOUTH EVERY TABLET BY l DAY FOR 90 DAY FOR 90 MOUTH Cl inics DAYS DAYS EVERY DAY FOR 90 DAYS BD Kalee 2nd BD Kalee 2nd No BD Kalee [place] Gen Pen Gen Pen 2nd Gen Commun i Needle 32 Needle 32 Pen Needle ty gauge x gauge x 32 gauge x Hos [facility] " 1 " 1 " 1 l TIME A DAY TIME A DAY TIME A DAY Clinics cholecalcif cholecalcif No cholecalci [place] ghada ghada ferol Communi (vitamin (vitamin (vitamin ty D3) 1,250 D3) 1,250 D3) 1,250 Hospita mcg (50,000 mcg (50,000 mcg l unit) unit) (50,000 Clinics capsule capsule unit) TAKE 1 TAKE 1 capsule CAPSULE CAPSULE TAKE 1 EVERY 15 EVERY 15 CAPSULE DAYS DAYS EVERY 15 DAYS clonazepam clonazepam No clonazepam [place] 0.5 mg 0.5 mg 0.5 mg Communi tablet TAKE tablet TAKE tablet ty 1 TABLET BY 1 TABLET BY TAKE 1 Hospita MOUTH EVERY MOUTH EVERY TABLET BY l DAY DAY MOUTH Clinics NEEDED NEEDED EVERY DAY NEEDED cyclobenzap cyclobenzap No cyclobenza [place] rine 10 mg rine 10 mg rita 10 Communi tablet tablet mg tablet ty Hospita l Clinics diclofenac diclofenac No diclofenac [place] sodium 75 sodium 75 sodium 75 Communi [...] DAY EVERY DAY famotidine famotidine No famotidine [place] 20 mg 20 mg 20 mg Communi tablet Take tablet Take tablet ty 1 tablet 1 tablet Take 1 Hospi ta daily by daily by tablet l mouth mouth daily by Clinics mouth ferrous ferrous No ferrous [place] sulfate 220 sulfate 220 sulfate Communi mg (44 mg mg (44 mg 220 mg (44 ty iron)/5 mL iron)/5 mL mg iron)/5 Hospita oral elixir oral elixir mL oral l Take 5 ML Take 5 ML elixir Cli nics BID by BID by Take 5 ML mouth mouth BID by mouth glipizide glipizide No glipizide [place] ER 2.5 mg ER 2.5 mg ER 2.5 mg Communi tablet, tablet, tablet, ty extended extended extended [facility] release 24 release 24 release 24 l hr hr hr Clinics Humatrope 6 Humatrope 6 No Humatrope [place] mg (18 mg (18 6 mg (18 Communi unit) unit) unit) ty injection injection injection [facility] cartridge cartridge cartridge l INJECT INJECT INJECT Clinics 0.3MG 0.3MG 0.3MG SUBCUTANEOU SUBCUTANEOU SUBCUTANEO SLY EVERY SLY EVERY USLY EVERY DAY DAY DAY hydrocortis hydrocortis No hydrocorti [place] one 20 mg one 20 mg sone 20 mg Communi tablet TAKE tablet TAKE tablet ty 2 TABLETS 2 TABLETS TAKE 2 [facility] BY MOUTH BY MOUTH TABLETS BY l EVERY DAY EVERY DAY MOUTH Clin ics IN THE IN THE EVERY DAY MORNING MORNING IN THE MORNING isosorbide isosorbide No isosorbide [place] mononitrate mononitrate mononitrat Communi ER 30 mg ER 30 mg e ER 30 mg t y tablet,exte tablet,exte tablet,ext Hospita nded nded ended l release 24 release 24 release 24 Clinics hr TAKE 1 hr TAKE 1 hr TAKE 1 TABLET BY TABLET BY TABLET BY MOUTH EVERY MOUTH EVERY MOUTH DAY DAY EVERY DAY Klor-Con 10 Klor-Con 10 No Klor-Con [place] mEq mEq 10 mEq Communi tablet,exte tablet,exte tablet,ext ty nded nded ended Hospita release release release l TAKE 1 TAKE 1 TAKE 1 Clinics TABLET BY TABLET BY TABLET BY MOUTH EVERY MOUTH EVERY MOUTH DAY WITH DAY WITH EVERY DAY FOOD FOOD WITH FOOD levothyroxi levothyroxi No levothyrox [place] ne 112 mcg ne 112 mcg ine 112 Communi tablet 1 tablet 1 mcg tablet t y TAB DAILY TAB DAILY 1 TAB [facility] 1/2 HR. 1/2 HR. DAILY 1/2 l BEFORE BEFORE HR. BEFORE Clini cs BREAKFAST BREAKFAST BREAKFAST WITH WATER WITH WATER WITH WATER lidocaine 5 lidocaine 5 No lidocaine [place] % topical % topical 5 % Commu ni patch patch topical ty patch [facility] liothyronin liothyronin No liothyroni [place] e 5 mcg e 5 mcg ne 5 mcg Commu ni tablet tablet tablet ty [facility] mirtazapine mirtazapine No mirtazapin [place] 15 mg 15 mg e 15 mg Communi tablet TAKE tablet TAKE tablet ty 1 TABLET BY 1 TABLET BY TAKE 1 Hospita MOUTH MOUTH TABLET BY l EVERYDAY AT EVERYDAY AT MOUTH Clinics BEDTIME BEDTIME EVERYDAY AT BEDTIME nitroglycer nitroglycer No 1 nitroglyce [place] in 0.4 mg in 0.4 mg rin 0.4 mg Communi sublingual sublingual sublingual ty tablet tablet tablet Hospita Place [address] 1 l tablet as tablet as tablet as Clinics needed by needed by needed by sublingual sublingual sublingual route. route. route. omeprazole omeprazole No omeprazole [place] 20 mg 20 mg 20 mg Communi [...] DAY l Clinics pantoprazol pantoprazol No pantoprazo [place] e 40 mg e 40 mg le 40 mg Commu ni tablet,indira tablet,indira tablet,del ty yed release yed release ayed H ospita Take 1 Take 1 release l tablet BID tablet BID Take 1 C linics by mouth by mouth tablet BID by mouth phenazopyri phenazopyri No phenazopyr [place] dine 200 mg dine 200 mg idine 200 Communi tablet TAKE tablet TAKE mg tablet ty 1 TABLET BY 1 TABLET BY TAKE 1 Hospita MOUTH THREE MOUTH THREE TABLET BY l TIMES A DAY TIMES A DAY MOUTH Clinics FOR 3 DAYS FOR 3 DAYS THREE TIMES A DAY FOR 3 DAYS potassium potassium No potassium [place] chloride ER chloride ER chloride Communi 20 mEq 20 mEq ER 20 mEq ty tablet,exte tablet,exte tablet,ext Hospita nded nded ended l release(par release(par release(pa Clinics t/cryst) t/cryst) rt/cryst) TAKE 1 TAKE 1 TAKE 1 TABLET BY TABLET BY TABLET BY MOUTH EVERY MOUTH EVERY MOUTH DAY DAY EVERY DAY Santyl 250 Santyl 250 No Santyl 250 [place] unit/gram unit/gram unit/gram Communi topical topical topical ty ointment ointment ointment [facility] APPLY A APPLY A APPLY A l DIONY [facility] THICK THICK THICK AMOUNT TO AMOUNT TO AMOUNT TO WOUND 3 WOUND 3 WOUND 3 TIMES A TIMES A TIMES A WEEK WEEK WEEK sotalol 160 sotalol 160 No sotalol [place] mg tablet mg tablet 160 mg Com raz TAKE 1 TAKE 1 tablet ty TABLET BY TABLET BY TAKE 1 [facility] MOUTH EVERY MOUTH EVERY TABLET BY l DAY DAY MOUTH Clinics EVERY DAY sulfamethox sulfamethox No sulfametho [place] azole 800 azole 800 xazole 800 Communi [...] Suprax 200 No 5mL BID Suprax 200 [place] mg/5 mL mg/5 mL mg/5 mL Commun i oral oral oral ty suspension suspension suspension Hospita Take 5 mL Take 5 mL Take 5 mL l twice a day twice a day twice a Clinics by oral by oral day by route for 7 route for 7 oral route days. days. for 7 days. tramadol 50 tramadol 50 No tramadol [place] mg tablet mg tablet 50 mg Comm uni TAKE 1 TAKE 1 tablet ty TABLET BY TABLET BY TAKE 1 [facility] MOUTH AT MOUTH AT TABLET BY l BEDTIME AND BEDTIME AND MOUTH AT Clinics IN MORNING IN MORNING BEDTIME AND IN MORNING amlodipine amlodipine No amlodipine [place] 5 mg tablet 5 mg tablet 5 mg C [facility] TAKE 1 TAKE 1 tablet ty TABLET BY TABLET BY TAKE 1 [facility] MOUTH EVERY MOUTH EVERY TABLET BY l DAY DAY MOUTH Clinics EVERY DAY atorvastati atorvastati No atorvastat [place] n 20 mg n 20 mg in 20 mg Commu ni tablet TAKE tablet TAKE tablet ty 1 TABLET BY 1 TABLET BY TAKE 1 Hospita MOUTH EVERY MOUTH EVERY TABLET BY l DAY FOR 90 DAY FOR 90 MOUTH Cl inics DAYS DAYS EVERY DAY FOR 90 DAYS BD Kalee 2nd BD Kalee 2nd No BD Kalee [place] Gen Pen Gen Pen 2nd Gen Commun i Needle 32 Needle 32 Pen Needle ty gauge x gauge x 32 gauge x [facility] " 1 " 1 " 1 l TIME A DAY TIME A DAY TIME A DAY Clinics ceftriaxone ceftriaxone No 500mg ceftriaxon [place] 500 mg 500 mg e 500 mg Communi solution solution solution ty for for for Hospita injection injection injection l Take 500 mg Take 500 mg Take 500 Clinics by by mg by injection injection injection route. route. route. cholecalcif cholecalcif No cholecalci [place] ghada ghada ferol Communi (vitamin (vitamin (vitamin ty D3) 1,250 D3) 1,250 D3) 1,250 Hospita mcg (50,000 mcg (50,000 mcg l unit) unit) (50,000 Clinics capsule capsule unit) TAKE 1 TAKE 1 capsule CAPSULE CAPSULE TAKE 1 EVERY 15 EVERY 15 CAPSULE DAYS DAYS EVERY 15 DAYS clonazepam clonazepam No clonazepam [place] 0.5 mg 0.5 mg 0.5 mg Communi tablet TAKE tablet TAKE tablet ty 1 TABLET BY 1 TABLET BY TAKE 1 Hospita MOUTH EVERY MOUTH EVERY TABLET BY l DAY DAY MOUTH Clinics NEEDED NEEDED EVERY DAY NEEDED cyclobenzap cyclobenzap No cyclobenza [place] rine 10 mg rine 10 mg rita 10 Communi tablet tablet mg tablet ty Hospita l Clinics diclofenac diclofenac No diclofenac [place] sodium 75 sodium 75 sodium 75 Communi [...] DAY EVERY DAY famotidine famotidine No famotidine [place] 20 mg 20 mg 20 mg Communi tablet Take tablet Take tablet ty 1 tablet 1 tablet Take 1 Hospi ta daily by daily by tablet l mouth mouth daily by Clinics mouth ferrous ferrous No ferrous [place] sulfate 220 sulfate 220 sulfate Communi mg (44 mg mg (44 mg 220 mg (44 ty iron)/5 mL iron)/5 mL mg iron)/5 Hospita oral elixir oral elixir mL oral l Take 5 ML Take 5 ML elixir Cli nics BID by BID by Take 5 ML mouth mouth BID by mouth glipizide glipizide No glipizide [place] ER 2.5 mg ER 2.5 mg ER 2.5 mg Communi tablet, tablet, tablet, ty extended extended extended [facility] release 24 release 24 release 24 l hr hr hr Clinics Humatrope 6 Humatrope 6 No Humatrope [place] mg (18 mg (18 6 mg (18 Communi unit) unit) unit) ty injection injection injection Hospita cartridge cartridge cartridge l INJECT INJECT INJECT Clinics 0.3MG 0.3MG 0.3MG SUBCUTANEOU SUBCUTANEOU SUBCUTANEO SLY EVERY SLY EVERY USLY EVERY DAY DAY DAY hydrocortis hydrocortis No hydrocorti [place] one 20 mg one 20 mg sone 20 mg Communi tablet TAKE tablet TAKE tablet ty 2 TABLETS 2 TABLETS TAKE 2 [facility] BY MOUTH BY MOUTH TABLETS BY l EVERY DAY EVERY DAY MOUTH Clin ics IN THE IN THE EVERY DAY MORNING MORNING IN THE MORNING isosorbide isosorbide No isosorbide [place] mononitrate mononitrate mononitrat Communi ER 30 mg ER 30 mg e ER 30 mg t y tablet,exte tablet,exte tablet,ext Hospita nded nded ended l release 24 release 24 release 24 Clinics hr TAKE 1 hr TAKE 1 hr TAKE 1 TABLET BY TABLET BY TABLET BY MOUTH EVERY MOUTH EVERY MOUTH DAY DAY EVERY DAY Klor-Con 10 Klor-Con 10 No Klor-Con [place] mEq mEq 10 mEq Communi tablet,exte tablet,exte tablet,ext ty nded nded ended Hospita release release release l TAKE 1 TAKE 1 TAKE 1 Clinics TABLET BY TABLET BY TABLET BY MOUTH EVERY MOUTH EVERY MOUTH DAY WITH DAY WITH EVERY DAY FOOD FOOD WITH FOOD levothyroxi levothyroxi No levothyrox [place] ne 112 mcg ne 112 mcg ine 112 Communi tablet 1 tablet 1 mcg tablet t y TAB DAILY TAB DAILY 1 TAB Hosp meryl 1/2 HR. 1/2 HR. DAILY 1/2 l BEFORE BEFORE HR. BEFORE Clini cs BREAKFAST BREAKFAST BREAKFAST WITH WATER WITH WATER WITH WATER lidocaine lidocaine No 2.1mL lidocaine [place] (PF) 10 (PF) 10 (PF) 10 Commun i mg/mL (1 %) mg/mL (1 %) mg/mL (1 ty injection injection %) Hospi ta solution solution injection l Take 2.1 mL Take 2.1 mL solution Clinics by by Take 2.1 injection injection mL by route. route. injection route. lidocaine lidocaine No 2.1mL Q1D lidocaine [place] (PF) 50 (PF) 50 (PF) 50 Commun i mg/5 mL (1 mg/5 mL (1 mg/5 mL (1 ty %) %) %) [facility] injection injection injection l syringe syringe [...] ML lidocaine 5 lidocaine 5 No lidocaine [place] % topical % topical 5 % Commu ni patch patch topical ty patch [facility] liothyronin liothyronin No liothyroni [place] e 5 mcg e 5 mcg ne 5 mcg Commu ni tablet tablet tablet ty [facility] mirtazapine mirtazapine No mirtazapin [place] 15 mg 15 mg e 15 mg Communi tablet TAKE tablet TAKE tablet ty 1 TABLET BY 1 TABLET BY TAKE 1 Hospita MOUTH MOUTH TABLET BY l EVERYDAY AT EVERYDAY AT MOUTH Clinics BEDTIME BEDTIME EVERYDAY AT BEDTIME nitroglycer nitroglycer No 1 nitroglyce [place] in 0.4 mg in 0.4 mg rin 0.4 mg Communi sublingual sublingual sublingual ty tablet tablet tablet [facility] Place [address] 1 l tablet as tablet as tablet as Clinics needed by needed by needed by sublingual sublingual sublingual route. route. route. omeprazole omeprazole No omeprazole [place] 20 mg 20 mg 20 mg Communi [...] ty gauge TEST gauge TEST gauge TEST [facility] TWICE A DAY TWICE A DAY [...] DAY l Clinics pantoprazol pantoprazol No pantoprazo [place] e 40 mg e 40 mg le 40 mg Commu ni tablet,indira tablet,indira tablet,del ty yed release yed release ayed H ospita Take 1 Take 1 release l tablet BID tablet BID Take 1 C linics by mouth by mouth tablet BID by mouth phenazopyri phenazopyri No phenazopyr [place] dine 200 mg dine 200 mg idine 200 Communi tablet TAKE tablet TAKE mg tablet ty 1 TABLET BY 1 TABLET BY TAKE 1 Hospita MOUTH THREE MOUTH THREE TABLET BY l TIMES A DAY TIMES A DAY MOUTH Clinics FOR 3 DAYS FOR 3 DAYS THREE TIMES A DAY FOR 3 DAYS potassium potassium No potassium [place] chloride ER chloride ER chloride Communi 20 mEq 20 mEq ER 20 mEq ty tablet,exte tablet,exte tablet,ext Hospita nded nded ended l release(par release(par release(pa Clinics t/cryst) t/cryst) rt/cryst) TAKE 1 TAKE 1 TAKE 1 TABLET BY TABLET BY TABLET BY MOUTH EVERY MOUTH EVERY MOUTH DAY DAY EVERY DAY Santyl 250 Santyl 250 No Santyl 250 [place] unit/gram unit/gram unit/gram Communi topical topical topical ty ointment ointment ointment [facility] APPLY A APPLY A APPLY A l [facility] THICK THICK THICK AMOUNT TO AMOUNT TO AMOUNT TO WOUND 3 WOUND 3 WOUND 3 TIMES A TIMES A TIMES A WEEK WEEK WEEK sotalol 160 sotalol 160 No sotalol [place] mg tablet mg tablet 160 mg Com raz TAKE 1 TAKE 1 tablet ty TABLET BY TABLET BY TAKE 1 [facility] MOUTH EVERY MOUTH EVERY TABLET BY l DAY DAY MOUTH Clinics EVERY DAY sulfamethox sulfamethox No sulfametho [place] azole 800 azole 800 xazole 800 Communi [...] Suprax 200 No 5mL BID Suprax 200 [place] mg/5 mL mg/5 mL mg/5 mL Commun i oral oral oral ty suspension suspension suspension Hospita Take 5 mL Take 5 mL Take 5 mL l twice a day twice a day twice a Clinics by oral by oral day by route for 7 route for 7 oral route days. days. for 7 days. tramadol 50 tramadol 50 No tramadol [place] mg tablet mg tablet 50 mg Comm uni TAKE 1 TAKE 1 tablet ty TABLET BY TABLET BY TAKE 1 [facility] MOUTH AT MOUTH AT TABLET BY l BEDTIME AND BEDTIME AND MOUTH AT Clinics IN MORNING IN MORNING BEDTIME AND IN MORNING amlodipine amlodipine No amlodipine [place] 5 mg tablet 5 mg tablet 5 mg C om[facility]i TAKE 1 TAKE 1 tablet ty TABLET BY TABLET BY TAKE 1 [facility] MOUTH EVERY MOUTH EVERY TABLET BY l DAY DAY MOUTH Clinics EVERY DAY atorvastati atorvastati No atorvastat [place] n 20 mg n 20 mg in 20 mg Commu ni tablet TAKE tablet TAKE tablet ty 1 TABLET BY 1 TABLET BY TAKE 1 Hospita MOUTH EVERY MOUTH EVERY TABLET BY l DAY FOR 90 DAY FOR 90 MOUTH Cl inics DAYS DAYS EVERY DAY FOR 90 DAYS BD Kalee 2nd BD Kalee 2nd No BD Kalee [place] Gen Pen Gen Pen 2nd Gen Commun i Needle 32 Needle 32 Pen Needle ty gauge x gauge x 32 gauge x [facility] 5/32" 1 5/32" 1 5/32" 1 l TIME A DAY TIME A DAY TIME A DAY Clinics ceftriaxone ceftriaxone No 500mg ceftriaxon [place] 500 mg 500 mg e 500 mg Communi solution solution solution ty for for for Hospita injection injection injection l Take 500 mg Take 500 mg Take 500 Clinics by by mg by injection injection injection route. route. route. cholecalcif cholecalcif No cholecalci [place] ghada ghada ferol Communi (vitamin (vitamin (vitamin ty D3) 1,250 D3) 1,250 D3) 1,250 Hospita mcg (50,000 mcg (50,000 mcg l unit) unit) (50,000 Clinics capsule capsule unit) TAKE 1 TAKE 1 capsule CAPSULE CAPSULE TAKE 1 EVERY 15 EVERY 15 CAPSULE DAYS DAYS EVERY 15 DAYS clonazepam clonazepam No clonazepam [place] 0.5 mg 0.5 mg 0.5 mg Communi tablet TAKE tablet TAKE tablet ty 1 TABLET BY 1 TABLET BY TAKE 1 Hospita MOUTH EVERY MOUTH EVERY TABLET BY l DAY DAY MOUTH Clinics NEEDED NEEDED EVERY DAY NEEDED cyclobenzap cyclobenzap No cyclobenza [place] rine 10 mg rine 10 mg rita 10 Communi tablet tablet mg tablet ty Hospita l Clinics diclofenac diclofenac No diclofenac [place] sodium 75 sodium 75 sodium 75 Communi [...] DAY EVERY DAY famotidine famotidine No famotidine [place] 20 mg 20 mg 20 mg Communi tablet Take tablet Take tablet ty 1 tablet 1 tablet Take 1 Hospi ta daily by daily by tablet l mouth mouth daily by Clinics mouth ferrous ferrous No ferrous [place] sulfate 220 sulfate 220 sulfate Communi mg (44 mg mg (44 mg 220 mg (44 ty iron)/5 mL iron)/5 mL mg iron)/5 Hospita oral elixir oral elixir mL oral l Take 5 ML Take 5 ML elixir Cli nics BID by BID by Take 5 ML mouth mouth BID by mouth glipizide glipizide No glipizide [place] ER 2.5 mg ER 2.5 mg ER 2.5 mg Communi tablet, tablet, tablet, ty extended extended extended [facility] release 24 release 24 release 24 l hr hr hr Clinics Humatrope 6 Humatrope 6 No Humatrope [place] mg (18 mg (18 6 mg (18 Communi unit) unit) unit) ty injection injection injection [facility] cartridge cartridge cartridge l INJECT INJECT INJECT [facility] 0.3MG 0.3MG 0.3MG SUBCUTANEOU SUBCUTANEOU SUBCUTANEO SLY EVERY SLY EVERY USLY EVERY DAY DAY DAY hydrocortis hydrocortis No hydrocorti [place] one 20 mg one 20 mg sone 20 mg Communi tablet TAKE tablet TAKE tablet ty 2 TABLETS 2 TABLETS TAKE 2 [facility] BY MOUTH BY MOUTH TABLETS BY l EVERY DAY EVERY DAY MOUTH Clin ics IN THE IN THE EVERY DAY MORNING MORNING IN THE MORNING isosorbide isosorbide No isosorbide [place] mononitrate mononitrate mononitrat Communi ER 30 mg ER 30 mg e ER 30 mg t y tablet,exte tablet,exte tablet,ext Hospita nded nded ended l release 24 release 24 release 24 Clinics hr TAKE 1 hr TAKE 1 hr TAKE 1 TABLET BY TABLET BY TABLET BY MOUTH EVERY MOUTH EVERY MOUTH DAY DAY EVERY DAY Klor-Con 10 Klor-Con 10 No Klor-Con [place] mEq mEq 10 mEq Communi tablet,exte tablet,exte tablet,ext ty nded nded ended Hospita release release release l TAKE 1 TAKE 1 TAKE 1 Clinics TABLET BY TABLET BY TABLET BY MOUTH EVERY MOUTH EVERY MOUTH DAY WITH DAY WITH EVERY DAY FOOD FOOD WITH FOOD levothyroxi levothyroxi No levothyrox [place] ne 112 mcg ne 112 mcg ine 112 Communi tablet 1 tablet 1 mcg tablet t y TAB DAILY TAB DAILY 1 TAB [facility]osp [facility]yl 1/2 HR. 1/2 HR. DAILY 1/2 l BEFORE BEFORE HR. BEFORE Clini cs BREAKFAST BREAKFAST BREAKFAST WITH WATER WITH WATER WITH WATER lidocaine lidocaine No 2.1mL lidocaine [place] (PF) 10 (PF) 10 (PF) 10 Commun i mg/mL (1 %) mg/mL (1 %) mg/mL (1 ty injection injection %) Hospi ta solution solution injection l Take 2.1 mL Take 2.1 mL solution Clinics by by Take 2.1 injection injection mL by route. route. injection route. lidocaine lidocaine No 2.1mL Q1D lidocaine [place] (PF) 50 (PF) 50 (PF) 50 Commun [...] ML lidocaine 5 lidocaine 5 No lidocaine [place] % topical % topical 5 % Commu ni patch patch topical ty patch Hospita l Clinics liothyronin liothyronin No liothyroni [place] e 5 mcg e 5 mcg ne 5 mcg Commu ni tablet tablet tablet ty Hospita l Clinics mirtazapine mirtazapine No mirtazapin [place] 15 mg 15 mg e 15 mg Communi tablet TAKE tablet TAKE tablet ty 1 TABLET BY 1 TABLET BY TAKE 1 Hospita MOUTH MOUTH TABLET BY l EVERYDAY AT EVERYDAY AT MOUTH Clinics BEDTIME BEDTIME EVERYDAY AT BEDTIME nitroglycer nitroglycer No 1 nitroglyce [place] in 0.4 mg in 0.4 mg rin 0.4 mg Communi sublingual sublingual sublingual ty tablet tablet tablet Hospita Place [address] 1 l tablet as tablet as tablet as Clinics needed by needed by needed by sublingual sublingual sublingual route. route. route. omeprazole omeprazole No omeprazole [place] 20 mg 20 mg 20 mg Communi [...] ty gauge [facility]ICE A DAY TWICE [...] DAY l Clinics pantoprazol pantoprazol No pantoprazo [place] e 40 mg e 40 mg le 40 mg Commu ni tablet,indira tablet,indira tablet,del ty yed release yed release ayed H ospita Take 1 Take 1 release l tablet BID tablet BID Take 1 C linics by mouth by mouth tablet BID by mouth phenazopyri phenazopyri No phenazopyr [place] dine 200 mg dine 200 mg idine 200 Communi tablet TAKE tablet TAKE mg tablet ty 1 TABLET BY 1 TABLET BY TAKE 1 Hospita MOUTH THREE MOUTH THREE TABLET BY l TIMES A DAY TIMES A DAY MOUTH Clinics FOR 3 DAYS FOR 3 DAYS THREE TIMES A DAY FOR 3 DAYS potassium potassium No potassium [place] chloride ER chloride ER chloride Communi 20 mEq 20 mEq ER 20 mEq ty tablet,exte tablet,exte tablet,ext Hospita nded nded ended l release(par release(par release(ri Clinics t/cryst) t/cryst) rt/cryst) TAKE 1 TAKE 1 TAKE 1 TABLET BY TABLET BY TABLET BY MOUTH EVERY MOUTH EVERY MOUTH DAY DAY EVERY DAY Santyl 250 Santyl 250 No Santyl 250 [place] unit/gram unit/gram unit/gram Communi topical topical topical ty ointment ointment ointment [facility] APPLY A APPLY A APPLY A l DIONY [facility] THICK THICK THICK AMOUNT TO AMOUNT TO AMOUNT TO WOUND 3 WOUND 3 WOUND 3 TIMES A TIMES A TIMES A WEEK WEEK WEEK sotalol 160 sotalol 160 No sotalol [place] mg tablet mg tablet 160 mg Com raz TAKE 1 TAKE 1 tablet ty TABLET BY TABLET BY TAKE 1 [facility] MOUTH EVERY MOUTH EVERY TABLET BY l DAY DAY MOUTH Clinics EVERY DAY sulfamethox sulfamethox No sulfametho [place] azole 800 azole 800 xazole 800 Communi [...] Suprax 200 No 5mL BID Suprax 200 [place] mg/5 mL mg/5 mL mg/5 mL Commun i oral oral oral ty suspension suspension suspension Hospita Take 5 mL Take 5 mL Take 5 mL l twice a day twice a day twice a Clinics by oral by oral day by route for 7 route for 7 oral route days. days. for 7 days. tramadol 50 tramadol 50 No tramadol [place] mg tablet mg tablet 50 mg Comm uni TAKE 1 TAKE 1 tablet ty TABLET BY TABLET BY TAKE 1 [facility] MOUTH AT MOUTH AT TABLET BY l BEDTIME AND BEDTIME AND MOUTH AT Clinics IN MORNING IN MORNING BEDTIME AND IN MORNING amlodipine amlodipine No amlodipine [place] 5 mg tablet 5 mg tablet 5 mg C [facility] TAKE 1 TAKE 1 tablet ty TABLET BY TABLET BY TAKE 1 [facility] MOUTH EVERY MOUTH EVERY TABLET BY l DAY DAY MOUTH Clinics EVERY DAY atorvastati atorvastati No atorvastat [place] n 20 mg n 20 mg in 20 mg Commu ni tablet TAKE tablet TAKE tablet ty 1 TABLET BY 1 TABLET BY TAKE 1 Hospita MOUTH EVERY MOUTH EVERY TABLET BY l DAY FOR 90 DAY FOR 90 MOUTH Cl inics DAYS DAYS EVERY DAY FOR 90 DAYS BD Kalee 2nd BD Kalee 2nd No BD Kalee [place] Gen Pen Gen Pen 2nd Gen Commun i Needle 32 Needle 32 Pen Needle ty gauge x gauge x 32 gauge x [facility] " 1 " 1 " 1 l TIME A DAY TIME A DAY TIME A DAY Clinics ceftriaxone ceftriaxone No 500mg ceftriaxon [place] 500 mg 500 mg e 500 mg Communi solution solution solution ty for for for Hospita injection injection injection l Take 500 mg Take 500 mg Take 500 Clinics by by mg by injection injection injection route. pt route. pt route. pt tolerated tolerated tolerated well well well cholecalcif cholecalcif No cholecalci [place] ghada ghada ferol Communi (vitamin (vitamin (vitamin ty D3) 1,250 D3) 1,250 D3) 1,250 Hospita mcg (50,000 mcg (50,000 mcg l unit) unit) (50,000 Clinics capsule capsule unit) TAKE 1 TAKE 1 capsule CAPSULE CAPSULE TAKE 1 EVERY 15 EVERY 15 CAPSULE DAYS DAYS EVERY 15 DAYS clonazepam clonazepam No clonazepam [place] 0.5 mg 0.5 mg 0.5 mg Communi tablet TAKE tablet TAKE tablet ty 1 TABLET BY 1 TABLET BY TAKE 1 Hospita MOUTH EVERY MOUTH EVERY TABLET BY l DAY DAY MOUTH Clinics NEEDED NEEDED EVERY DAY NEEDED cyclobenzap cyclobenzap No cyclobenza [place] rine 10 mg rine 10 mg rita 10 Communi tablet tablet mg tablet ty Hospita l Clinics diclofenac diclofenac No diclofenac [place] sodium 75 sodium 75 sodium 75 Communi [...] DAY EVERY DAY famotidine famotidine No famotidine [place] 20 mg 20 mg 20 mg Communi tablet Take tablet Take tablet ty 1 tablet 1 tablet Take 1 Hospi ta daily by daily by tablet l mouth mouth daily by Clinics mouth ferrous ferrous No ferrous [place] sulfate 220 sulfate 220 sulfate Communi mg (44 mg mg (44 mg 220 mg (44 ty iron)/5 mL iron)/5 mL mg iron)/5 Hospita oral elixir oral elixir mL oral l Take 5 ML Take 5 ML elixir Cli nics BID by BID by Take 5 ML mouth mouth BID by mouth glipizide glipizide No glipizide [place] ER 2.5 mg ER 2.5 mg ER 2.5 mg Communi tablet, tablet, tablet, ty extended extended extended [facility] release 24 release 24 release 24 l hr hr hr Clinics Humatrope 6 Humatrope 6 No Humatrope [place] mg (18 mg (18 6 mg (18 Communi unit) unit) unit) ty [facility]JECT INJECT Clinics 0.3MG 0.3MG 0.3MG SUBCUTANEOU SUBCUTANEOU SUBCUTANEO SLY EVERY SLY EVERY USLY EVERY DAY DAY DAY hydrocortis hydrocortis No hydrocorti [place] one 20 mg one 20 mg sone 20 mg Communi tablet TAKE tablet TAKE tablet ty 2 TABLETS 2 TABLETS TAKE 2 [facility] BY MOUTH BY MOUTH TABLETS BY l EVERY DAY EVERY DAY MOUTH Clin ics IN THE IN THE EVERY DAY MORNING MORNING IN THE MORNING isosorbide isosorbide No isosorbide [place] mononitrate mononitrate mononitrat Communi ER 30 mg ER 30 mg e ER 30 mg t y tablet,exte tablet,exte tablet,ext Hospita nded nded ended l release 24 release 24 release 24 Clinics hr TAKE 1 hr TAKE 1 hr TAKE 1 TABLET BY TABLET BY TABLET BY MOUTH EVERY MOUTH EVERY MOUTH DAY DAY EVERY DAY Klor-Con 10 Klor-Con 10 No Klor-Con [place] mEq mEq 10 mEq Communi tablet,exte tablet,exte tablet,ext ty nded nded ended Hospita release release release l TAKE 1 TAKE 1 TAKE 1 Clinics TABLET BY TABLET BY TABLET BY MOUTH EVERY MOUTH EVERY MOUTH DAY WITH DAY WITH EVERY DAY FOOD FOOD WITH FOOD levothyroxi levothyroxi No levothyrox [place] ne 112 mcg ne 112 mcg ine 112 Communi tablet 1 tablet 1 mcg tablet t y TAB DAILY TAB DAILY 1 TAB [facility]osp [facility] 1/2 HR. 1/2 HR. DAILY 1/2 l BEFORE BEFORE HR. BEFORE Clini cs BREAKFAST BREAKFAST BREAKFAST WITH WATER WITH WATER WITH WATER lidocaine lidocaine No 2.1mL lidocaine [place] (PF) 10 (PF) 10 (PF) 10 Commun i mg/mL (1 %) mg/mL (1 %) mg/mL (1 ty injection injection %) [facility] ta solution solution injection l Take 2.1 mL Take 2.1 mL solution Clinics by by Take 2.1 injection injection mL by route. route. injection route. lidocaine lidocaine No 2.1mL Q1D lidocaine [place] (PF) 50 (PF) 50 (PF) 50 Commun [...] mL lidocaine 5 lidocaine 5 No lidocaine [place] % topical % topical 5 % Commu ni patch patch topical ty patch [facility] liothyronin liothyronin No liothyroni [place] e 5 mcg e 5 mcg ne 5 mcg Commu ni tablet tablet tablet ty [facility] mirtazapine mirtazapine No mirtazapin [place] 15 mg 15 mg e 15 mg Communi tablet TAKE tablet TAKE tablet ty 1 TABLET BY 1 TABLET BY TAKE 1 [facility] MOUTH MOUTH TABLET BY l EVERYDAY AT EVERYDAY AT MOUTH Clinics BEDTIME BEDTIME EVERYDAY AT BEDTIME nitroglycer nitroglycer No 1 nitroglyce [place] in 0.4 mg in 0.4 mg rin 0.4 mg Communi sublingual sublingual sublingual ty tablet tablet tablet [facility] Place [address] 1 l tablet as tablet as tablet as Clinics needed by needed by needed by sublingual sublingual sublingual route. route. route. omeprazole omeprazole No omeprazole [place] 20 mg 20 mg 20 mg Communi [...] DAY l Clinics pantoprazol pantoprazol No pantoprazo [place] e 40 mg e 40 mg le 40 mg Commu ni tablet,indira tablet,indira tablet,del ty yed release yed release ayed H ospita Take 1 Take 1 release l tablet BID tablet BID Take 1 C linics by mouth by mouth tablet BID by mouth phenazopyri phenazopyri No phenazopyr [place] dine 200 mg dine 200 mg idine 200 Communi tablet TAKE tablet TAKE mg tablet ty 1 TABLET BY 1 TABLET BY TAKE 1 Hospita MOUTH THREE MOUTH THREE TABLET BY l TIMES A DAY TIMES A DAY MOUTH Clinics FOR 3 DAYS FOR 3 DAYS THREE TIMES A DAY FOR 3 DAYS potassium potassium No potassium [place] chloride ER chloride ER chloride Communi 20 mEq 20 mEq ER 20 mEq ty tablet,exte tablet,exte tablet,ext Hospita nded nded ended l release(par release(par release(ri Clinics t/cryst) t/cryst) rt/cryst) TAKE 1 TAKE 1 TAKE 1 TABLET BY TABLET BY TABLET BY MOUTH EVERY MOUTH EVERY MOUTH DAY DAY EVERY DAY Santyl 250 Santyl 250 No Santyl 250 [place] unit/gram unit/gram unit/gram Communi topical topical topical ty ointment ointment ointment [facility] APPLY A APPLY A APPLY A l DIONY DIONY [facility] THICK THICK THICK AMOUNT TO AMOUNT TO AMOUNT TO WOUND 3 WOUND 3 WOUND 3 TIMES A TIMES A TIMES A WEEK WEEK WEEK sotalol 160 sotalol 160 No sotalol [place] mg tablet mg tablet 160 mg Com raz TAKE 1 TAKE 1 tablet ty TABLET BY TABLET BY TAKE 1 [facility] MOUTH EVERY MOUTH EVERY TABLET BY l DAY DAY MOUTH Clinics EVERY DAY sulfamethox sulfamethox No sulfametho [place] azole 800 azole 800 xazole 800 Communi [...] Suprax 200 No 5mL BID Suprax 200 [place] mg/5 mL mg/5 mL mg/5 mL Commun i oral oral oral ty suspension suspension suspension Hospita Take 5 mL Take 5 mL Take 5 mL l twice a day twice a day twice a Clinics by oral by oral day by route for 7 route for 7 oral route days. days. for 7 days. tramadol 50 tramadol 50 No tramadol [place] mg tablet mg tablet 50 mg Comm uni TAKE 1 TAKE 1 tablet ty TABLET BY TABLET BY TAKE 1 [facility] MOUTH AT MOUTH AT TABLET BY l BEDTIME AND BEDTIME AND MOUTH AT Clinics IN MORNING IN MORNING BEDTIME AND IN MORNING amlodipine amlodipine No amlodipine [place] 5 mg tablet 5 mg tablet 5 mg C [facility] TAKE 1 TAKE 1 tablet ty TABLET BY TABLET BY TAKE 1 [facility] MOUTH EVERY MOUTH EVERY TABLET BY l DAY DAY MOUTH Clinics EVERY DAY atorvastati atorvastati No atorvastat [place] n 20 mg n 20 mg in 20 mg Commu ni tablet TAKE tablet TAKE tablet ty 1 TABLET BY 1 TABLET BY TAKE 1 Hospita MOUTH EVERY MOUTH EVERY TABLET BY l DAY FOR 90 DAY FOR 90 MOUTH Cl inics DAYS DAYS EVERY DAY FOR 90 DAYS BD Kalee 2nd BD Kalee 2nd No BD Kalee [place] Gen Pen Gen Pen 2nd Gen Commun i Needle 32 Needle 32 Pen Needle ty gauge x gauge x 32 gauge x [facility] " 1 " 1 " 1 l TIME A DAY TIME A DAY TIME A DAY Clinics ceftriaxone ceftriaxone No 500mg ceftriaxon [place] 500 mg 500 mg e 500 mg Communi solution solution solution ty for for for Hospita injection injection injection l Take 500 mg Take 500 mg Take 500 Clinics by by mg by injection injection injection route. pt route. pt route. pt tolerated tolerated tolerated well well well cholecalcif cholecalcif No cholecalci [place] ghada ghada ferol Communi (vitamin (vitamin (vitamin ty D3) 1,250 D3) 1,250 D3) 1,250 Hospita mcg (50,000 mcg (50,000 mcg l unit) unit) (50,000 Clinics capsule capsule unit) TAKE 1 TAKE 1 capsule CAPSULE CAPSULE TAKE 1 EVERY 15 EVERY 15 CAPSULE DAYS DAYS EVERY 15 DAYS clonazepam clonazepam No clonazepam [place] 0.5 mg 0.5 mg 0.5 mg Communi tablet TAKE tablet TAKE tablet ty 1 TABLET BY 1 TABLET BY TAKE 1 Hospita MOUTH EVERY MOUTH EVERY TABLET BY l DAY DAY MOUTH Clinics NEEDED NEEDED EVERY DAY NEEDED cyclobenzap cyclobenzap No cyclobenza [place] rine 10 mg rine 10 mg rita 10 Communi tablet tablet mg tablet ty Hospita l Clinics diclofenac diclofenac No diclofenac [place] sodium 75 sodium 75 sodium 75 Communi [...] DAY EVERY DAY famotidine famotidine No famotidine [place] 20 mg 20 mg 20 mg Communi tablet Take tablet Take tablet ty 1 tablet 1 tablet Take 1 Hospi ta daily by daily by tablet l mouth mouth daily by Clinics mouth ferrous ferrous No ferrous [place] sulfate 220 sulfate 220 sulfate Communi mg (44 mg mg (44 mg 220 mg (44 ty iron)/5 mL iron)/5 mL mg iron)/5 Hospita oral elixir oral elixir mL oral l Take 5 ML Take 5 ML elixir Cli nics BID by BID by Take 5 ML mouth mouth BID by mouth glipizide glipizide No glipizide [place] ER 2.5 mg ER 2.5 mg ER 2.5 mg Communi tablet, tablet, tablet, ty extended extended extended [facility] release 24 release 24 release 24 l hr hr hr Clinics Humatrope 6 Humatrope 6 No Humatrope [place] mg (18 mg (18 6 mg (18 Communi unit) unit) unit) ty injection injection injection Hospita cartridge cartridge cartridge l INJECT INJECT INJECT Clinics 0.3MG 0.3MG 0.3MG SUBCUTANEOU SUBCUTANEOU SUBCUTANEO SLY EVERY SLY EVERY USLY EVERY DAY DAY DAY hydrocortis hydrocortis No hydrocorti [place] one 20 mg one 20 mg sone 20 mg Communi tablet TAKE tablet TAKE tablet ty 2 TABLETS 2 TABLETS TAKE 2 [facility] BY MOUTH BY MOUTH TABLETS BY l EVERY DAY EVERY DAY MOUTH Clin ics IN THE IN THE EVERY DAY MORNING MORNING IN THE MORNING isosorbide isosorbide No isosorbide [place] mononitrate mononitrate mononitrat Communi ER 30 mg ER 30 mg e ER 30 mg t y tablet,exte tablet,exte tablet,ext Hospita nded nded ended l release 24 release 24 release 24 Clinics hr TAKE 1 hr TAKE 1 hr TAKE 1 TABLET BY TABLET BY TABLET BY MOUTH EVERY MOUTH EVERY MOUTH DAY DAY EVERY DAY Klor-Con 10 Klor-Con 10 No Klor-Con [place] mEq mEq 10 mEq Communi tablet,exte tablet,exte tablet,ext ty nded nded ended Hospita release release release l TAKE 1 TAKE 1 TAKE 1 Clinics TABLET BY TABLET BY TABLET BY MOUTH EVERY MOUTH EVERY MOUTH DAY WITH DAY WITH EVERY DAY FOOD FOOD WITH FOOD levothyroxi levothyroxi No levothyrox [place] ne 112 mcg ne 112 mcg ine 112 Communi tablet 1 tablet 1 mcg tablet t y TAB DAILY TAB DAILY 1 TAB Hosp meryl 1/2 HR. 1/2 HR. DAILY 1/2 l BEFORE BEFORE HR. BEFORE Clini cs BREAKFAST BREAKFAST BREAKFAST WITH WATER WITH WATER WITH WATER lidocaine lidocaine No 2.1mL lidocaine [place] (PF) 10 (PF) 10 (PF) 10 Commun i mg/mL (1 %) mg/mL (1 %) mg/mL (1 ty injection injection %) Hospi ta solution solution injection l Take 2.1 mL Take 2.1 mL solution Clinics by by Take 2.1 injection injection mL by route. route. injection route. lidocaine lidocaine No 2.1mL Q1D lidocaine [place] (PF) 50 (PF) 50 (PF) 50 Commun i mg/5 mL (1 mg/5 mL (1 mg/5 mL (1 ty %) %) %) [facility] injection injection injection l syringe syringe [...] mL lidocaine 5 lidocaine 5 No lidocaine [place] % topical % topical 5 % [facility]mu ni [facility]in No liothyroni [place] e 5 mcg e 5 mcg ne 5 mcg Commu ni tablet tablet tablet ty [facility] mirtazapine mirtazapine No mirtazapin [place] 15 mg 15 mg e 15 mg Communi tablet TAKE tablet TAKE tablet ty 1 TABLET BY 1 TABLET BY TAKE 1 Hospita MOUTH MOUTH TABLET BY l EVERYDAY AT EVERYDAY AT MOUTH Clinics BEDTIME BEDTIME EVERYDAY AT BEDTIME nitroglycer nitroglycer No 1 nitroglyce [place] in 0.4 mg in 0.4 mg rin 0.4 mg Communi sublingual sublingual sublingual ty tablet [facility] [address] 1 l tablet as tablet as tablet as Clinics needed by needed by needed by sublingual sublingual sublingual route. route. route. omeprazole omeprazole No omeprazole [place] 20 mg 20 mg 20 mg Communi [...] ty gauge TEST gauge TEST gauge TEST [facility] TWICE A DAY TWICE A DAY [...] DAY l Clinics pantoprazol pantoprazol No pantoprazo [place] e 40 mg e 40 mg le 40 mg Commu ni tablet,indira tablet,indira tablet,del ty yed release yed release ayed H ospita Take 1 Take 1 release l tablet BID tablet BID Take 1 C linics by mouth by mouth tablet BID by mouth phenazopyri phenazopyri No phenazopyr [place] dine 200 mg dine 200 mg idine 200 Communi tablet TAKE tablet TAKE mg tablet ty 1 TABLET BY 1 TABLET BY TAKE 1 Hospita MOUTH THREE MOUTH THREE TABLET BY l TIMES A DAY TIMES A DAY MOUTH Clinics FOR 3 DAYS FOR 3 DAYS THREE TIMES A DAY FOR 3 DAYS potassium potassium No potassium [place] chloride ER chloride ER chloride Communi 20 mEq 20 mEq ER 20 mEq ty tablet,exte tablet,exte tablet,ext Hospita nded nded ended l release(par release(par release(pa Clinics t/cryst) t/cryst) rt/cryst) TAKE 1 TAKE 1 TAKE 1 TABLET BY TABLET BY TABLET BY MOUTH EVERY MOUTH EVERY MOUTH DAY DAY EVERY DAY Santyl 250 Santyl 250 No Santyl 250 [place] unit/gram unit/gram unit/gram Communi topical topical topical ty ointment ointment ointment [facility] APPLY A APPLY A APPLY A l [facility] THICK THICK THICK AMOUNT TO AMOUNT TO AMOUNT TO WOUND 3 WOUND 3 WOUND 3 TIMES A TIMES A TIMES A WEEK WEEK WEEK sotalol 160 sotalol 160 No sotalol [place] mg tablet mg tablet 160 mg Com raz TAKE 1 TAKE 1 tablet ty TABLET BY TABLET BY TAKE 1 [facility] MOUTH EVERY MOUTH EVERY TABLET BY l DAY DAY MOUTH Clinics EVERY DAY sulfamethox sulfamethox No sulfametho [place] azole 800 azole 800 xazole 800 Communi [...] Suprax 200 No 5mL BID Suprax 200 [place] mg/5 mL mg/5 mL mg/5 mL Commun i oral oral oral ty suspension suspension suspension Hospita Take 5 mL Take 5 mL Take 5 mL l twice a day twice a day twice a Clinics by oral by oral day by route for 7 route for 7 oral route days. days. for 7 days. tramadol 50 tramadol 50 No tramadol [place] mg tablet mg tablet 50 mg Comm uni TAKE 1 TAKE 1 tablet ty TABLET BY TABLET BY TAKE 1 [facility] MOUTH AT MOUTH AT TABLET BY l BEDTIME AND BEDTIME AND MOUTH AT Clinics IN MORNING IN MORNING BEDTIME AND IN MORNING amlodipine amlodipine No amlodipine [place] 5 mg tablet 5 mg tablet 5 mg C om[facility]i TAKE 1 TAKE 1 tablet ty TABLET BY TABLET BY TAKE 1 [facility] MOUTH EVERY MOUTH EVERY TABLET BY l DAY DAY MOUTH Clinics EVERY DAY atorvastati atorvastati No atorvastat [place] n 20 mg n 20 mg in 20 mg Commu ni tablet TAKE tablet TAKE tablet ty 1 TABLET BY 1 TABLET BY TAKE 1 Hospita MOUTH EVERY MOUTH EVERY TABLET BY l DAY FOR 90 DAY FOR 90 MOUTH Cl inics DAYS DAYS EVERY DAY FOR 90 DAYS BD Kalee 2nd BD Kalee 2nd No BD Kalee [place] Gen Pen Gen Pen 2nd Gen Commun i Needle 32 Needle 32 Pen Needle ty gauge x gauge x 32 gauge x [facility] " 1 " 1 " 1 l TIME A DAY TIME A DAY TIME A DAY Clinics ceftriaxone ceftriaxone No 500mg ceftriaxon [place] 500 mg 500 mg e 500 mg Communi solution solution solution ty for for for Hospita injection injection injection l Take 500 mg Take 500 mg Take 500 Clinics by by mg by injection injection injection route. pt route. pt route. pt tolerated tolerated tolerated well well well cholecalcif cholecalcif No cholecalci [place] ghada ghada ferol Communi (vitamin (vitamin (vitamin ty D3) 1,250 D3) 1,250 D3) 1,250 Hospita mcg (50,000 mcg (50,000 mcg l unit) unit) (50,000 Clinics capsule capsule unit) TAKE 1 TAKE 1 capsule CAPSULE CAPSULE TAKE 1 EVERY 15 EVERY 15 CAPSULE DAYS DAYS EVERY 15 DAYS clonazepam clonazepam No clonazepam [place] 0.5 mg 0.5 mg 0.5 mg Communi tablet TAKE tablet TAKE tablet ty 1 TABLET BY 1 TABLET BY TAKE 1 Hospita MOUTH EVERY MOUTH EVERY TABLET BY l DAY DAY MOUTH Clinics NEEDED NEEDED EVERY DAY NEEDED cyclobenzap cyclobenzap No cyclobenza [place] rine 10 mg rine 10 mg rita 10 Communi tablet tablet mg tablet ty Hospita l Clinics diclofenac diclofenac No diclofenac [place] sodium 75 sodium 75 sodium 75 Communi [...] DAY EVERY DAY famotidine famotidine No famotidine [place] 20 mg 20 mg 20 mg Communi tablet Take tablet Take tablet ty 1 tablet 1 tablet Take 1 Hospi ta daily by daily by tablet l mouth mouth daily by Clinics mouth ferrous ferrous No ferrous [place] sulfate 220 sulfate 220 sulfate Communi mg (44 mg mg (44 mg 220 mg (44 ty iron)/5 mL iron)/5 mL mg iron)/5 Hospita oral elixir oral elixir mL oral l Take 5 ML Take 5 ML elixir Cli nics BID by BID by Take 5 ML mouth mouth BID by mouth glipizide glipizide No glipizide [place] ER 2.5 mg ER 2.5 mg ER 2.5 mg Communi tablet, tablet, tablet, ty extended extended extended [facility] release 24 release 24 release 24 l hr hr hr Clinics Humatrope 6 Humatrope 6 No Humatrope [place] mg (18 mg (18 6 mg (18 Communi unit) unit) unit) ty injection injection injection [facility] cartridge cartridge cartridge l INJECT INJECT INJECT Clinics 0.3MG 0.3MG 0.3MG SUBCUTANEOU SUBCUTANEOU SUBCUTANEO SLY EVERY SLY EVERY USLY EVERY DAY DAY DAY hydrocortis hydrocortis No hydrocorti [place] one 20 mg one 20 mg sone 20 mg Communi tablet TAKE tablet TAKE tablet ty 2 TABLETS 2 TABLETS TAKE 2 [facility] BY MOUTH BY MOUTH TABLETS BY l EVERY DAY EVERY DAY MOUTH Clin ics IN THE IN THE EVERY DAY MORNING MORNING IN THE MORNING isosorbide isosorbide No isosorbide [place] mononitrate mononitrate mononitrat Communi ER 30 mg ER 30 mg e ER 30 mg t y tablet,exte tablet,exte tablet,ext Hospita nded nded ended l release 24 release 24 release 24 Clinics hr TAKE 1 hr TAKE 1 hr TAKE 1 TABLET BY TABLET BY TABLET BY MOUTH EVERY MOUTH EVERY MOUTH DAY DAY EVERY DAY Klor-Con 10 Klor-Con 10 No Klor-Con [place] mEq mEq 10 mEq Communi tablet,exte tablet,exte tablet,ext ty nded nded ended Hospita release release release l TAKE 1 TAKE 1 TAKE 1 Clinics TABLET BY TABLET BY TABLET BY MOUTH EVERY MOUTH EVERY MOUTH DAY WITH DAY WITH EVERY DAY FOOD FOOD WITH FOOD levothyroxi levothyroxi No levothyrox [place] ne 112 mcg ne 112 mcg ine 112 Communi tablet 1 tablet 1 mcg tablet t y TAB DAILY TAB DAILY 1 TAB Hosp meryl 1/2 HR. 1/2 HR. DAILY 1/2 l BEFORE BEFORE HR. BEFORE Clini cs BREAKFAST BREAKFAST BREAKFAST WITH WATER WITH WATER WITH WATER lidocaine lidocaine No 2.1mL lidocaine [place] (PF) 10 (PF) 10 (PF) 10 Commun i mg/mL (1 %) mg/mL (1 %) mg/mL (1 ty injection injection %) Hospi ta solution solution injection l Take 2.1 mL Take 2.1 mL solution Clinics by by Take 2.1 injection injection mL by route. route. injection route. lidocaine lidocaine No 2.1mL Q1D lidocaine [place] (PF) 50 (PF) 50 (PF) 50 Commun [...] mL lidocaine 5 lidocaine 5 No lidocaine [place] % topical % topical 5 % Commu ni patch patch topical ty patch [facility] liothyronin liothyronin No liothyroni [place] e 5 mcg e 5 mcg ne 5 mcg Commu ni tablet tablet tablet ty [facility] mirtazapine mirtazapine No mirtazapin [place] 15 mg 15 mg e 15 mg Communi tablet TAKE tablet TAKE tablet ty 1 TABLET BY 1 TABLET BY TAKE 1 Hospita MOUTH MOUTH TABLET BY l EVERYDAY AT EVERYDAY AT MOUTH Clinics BEDTIME BEDTIME EVERYDAY AT BEDTIME nitroglycer nitroglycer No 1 nitroglyce [place] in 0.4 mg in 0.4 mg rin 0.4 mg Communi sublingual sublingual sublingual ty tablet tablet tablet Hospita Place [address] 1 l tablet as tablet as tablet as Clinics needed by needed by needed by sublingual sublingual sublingual route. route. route. omeprazole omeprazole No omeprazole [place] 20 mg 20 mg 20 mg Communi [...] DAY l Clinics pantoprazol pantoprazol No pantoprazo [place] e 40 mg e 40 mg le 40 mg Commu ni tablet,indira tablet,indira tablet,del ty yed release yed release ayed H ospita Take 1 Take 1 release l tablet BID tablet BID Take 1 C linics by mouth by mouth tablet BID by mouth phenazopyri phenazopyri No phenazopyr [place] dine 200 mg dine 200 mg idine 200 Communi tablet TAKE tablet TAKE mg tablet ty 1 TABLET BY 1 TABLET BY TAKE 1 Hospita MOUTH THREE MOUTH THREE TABLET BY l TIMES A DAY TIMES A DAY MOUTH Clinics FOR 3 DAYS FOR 3 DAYS THREE TIMES A DAY FOR 3 DAYS potassium potassium No potassium [place] chloride ER chloride ER chloride Communi 20 mEq 20 mEq ER 20 mEq ty tablet,exte tablet,exte tablet,ext Hospita nded nded ended l release(par release(par release(ri Clinics t/cryst) t/cryst) rt/cryst) TAKE 1 TAKE 1 TAKE 1 TABLET BY TABLET BY TABLET BY MOUTH EVERY MOUTH EVERY MOUTH DAY DAY EVERY DAY Santyl 250 Santyl 250 No Santyl 250 [place] unit/gram unit/gram unit/gram Communi topical topical topical ty ointment ointment ointment [facility] APPLY A APPLY A APPLY A l DIONY [facility] THICK THICK THICK AMOUNT TO AMOUNT TO AMOUNT TO WOUND 3 WOUND 3 WOUND 3 TIMES A TIMES A TIMES A WEEK WEEK WEEK sotalol 160 sotalol 160 No sotalol [place] mg tablet mg tablet 160 mg Com raz TAKE 1 TAKE 1 tablet ty TABLET BY TABLET BY TAKE 1 [facility] MOUTH EVERY MOUTH EVERY TABLET BY l DAY DAY MOUTH Clinics EVERY DAY sulfamethox sulfamethox No sulfametho [place] azole 800 azole 800 xazole 800 Communi [...] Suprax 200 No 5mL BID Suprax 200 [place] mg/5 mL mg/5 mL mg/5 mL Commun i oral oral oral ty suspension suspension suspension Hospita Take 5 mL Take 5 mL Take 5 mL l twice a day twice a day twice a Clinics by oral by oral day by route for 7 route for 7 oral route days. days. for 7 days. tramadol 50 tramadol 50 No tramadol [place] mg tablet mg tablet 50 mg Comm uni TAKE 1 TAKE 1 tablet ty TABLET BY TABLET BY TAKE 1 [facility] MOUTH AT MOUTH AT TABLET BY l BEDTIME AND BEDTIME AND MOUTH AT Clinics IN MORNING IN MORNING BEDTIME AND IN MORNING amlodipine amlodipine No amlodipine [place] 5 mg tablet 5 mg tablet 5 mg C [facility]i TAKE 1 TAKE 1 tablet ty TABLET BY TABLET BY TAKE 1 [facility] MOUTH EVERY MOUTH EVERY TABLET BY l DAY DAY MOUTH Clinics EVERY DAY atorvastati atorvastati No atorvastat [place] n 20 mg n 20 mg in 20 mg Commu ni tablet TAKE tablet TAKE tablet ty 1 TABLET BY 1 TABLET BY TAKE 1 Hospita MOUTH EVERY MOUTH EVERY TABLET BY l DAY FOR 90 DAY FOR 90 MOUTH Cl inics DAYS DAYS EVERY DAY FOR 90 DAYS BD Kalee 2nd BD Kalee 2nd No BD Kalee [place] Gen Pen Gen Pen 2nd Gen Commun i Needle 32 Needle 32 Pen Needle ty gauge x gauge x 32 gauge x [facility] " 1 " 1 " 1 l TIME A DAY TIME A DAY TIME A DAY Clinics ceftriaxone ceftriaxone No 500mg ceftriaxon [place] 500 mg 500 mg e 500 mg Communi solution solution solution ty for for for Hospita injection injection injection l Take 500 mg Take 500 mg Take 500 Clinics by by mg by injection injection injection route. pt route. pt route. pt tolerated tolerated tolerated well well well cholecalcif cholecalcif No cholecalci [place] ghada ghada ferol Communi (vitamin (vitamin (vitamin ty D3) 1,250 D3) 1,250 D3) 1,250 Hospita mcg (50,000 mcg (50,000 mcg l unit) unit) (50,000 Clinics capsule capsule unit) TAKE 1 TAKE 1 capsule CAPSULE CAPSULE TAKE 1 EVERY 15 EVERY 15 CAPSULE DAYS DAYS EVERY 15 DAYS clonazepam clonazepam No clonazepam [place] 0.5 mg 0.5 mg 0.5 mg Communi tablet TAKE tablet TAKE tablet ty 1 TABLET BY 1 TABLET BY TAKE 1 Hospita MOUTH EVERY MOUTH EVERY TABLET BY l DAY DAY MOUTH Clinics NEEDED NEEDED EVERY DAY NEEDED cyclobenzap cyclobenzap No cyclobenza [place] rine 10 mg rine 10 mg rita 10 Communi tablet tablet mg tablet ty Hospita l Clinics diclofenac diclofenac No diclofenac [place] sodium 75 sodium 75 sodium 75 Communi [...] DAY EVERY DAY famotidine famotidine No famotidine [place] 20 mg 20 mg 20 mg Communi tablet Take tablet Take tablet ty 1 tablet 1 tablet Take 1 Hospi ta daily by daily by tablet l mouth mouth daily by Clinics mouth ferrous ferrous No ferrous [place] sulfate 220 sulfate 220 sulfate Communi mg (44 mg mg (44 mg 220 mg (44 ty iron)/5 mL iron)/5 mL mg iron)/5 Hospita oral elixir oral elixir mL oral l Take 5 ML Take 5 ML elixir Cli nics BID by BID by Take 5 ML mouth mouth BID by mouth glipizide glipizide No glipizide [place] ER 2.5 mg ER 2.5 mg ER 2.5 mg Communi tablet, tablet, tablet, ty extended extended extended [facility] release 24 release 24 release 24 l hr hr hr Clinics Humatrope 6 Humatrope 6 No Humatrope [place] mg (18 mg (18 6 mg (18 Communi unit) unit) unit) ty [facility] l INJECT INJECT INJECT Clinics 0.3MG 0.3MG 0.3MG SUBCUTANEOU SUBCUTANEOU SUBCUTANEO SLY EVERY SLY EVERY USLY EVERY DAY DAY DAY hydrocortis hydrocortis No hydrocorti [place] one 20 mg one 20 mg sone 20 mg Communi tablet TAKE tablet TAKE tablet ty 2 TABLETS 2 TABLETS TAKE 2 [facility] BY MOUTH BY MOUTH TABLETS BY l EVERY DAY EVERY DAY MOUTH Clin ics IN THE IN THE EVERY DAY MORNING MORNING IN THE MORNING isosorbide isosorbide No isosorbide [place] mononitrate mononitrate mononitrat Communi ER 30 mg ER 30 mg e ER 30 mg t y tablet,exte tablet,exte tablet,ext Hospita nded nded ended l release 24 release 24 release 24 Clinics hr TAKE 1 hr TAKE 1 hr TAKE 1 TABLET BY TABLET BY TABLET BY MOUTH EVERY MOUTH EVERY MOUTH DAY DAY EVERY DAY Klor-Con 10 Klor-Con 10 No Klor-Con [place] mEq mEq 10 mEq Communi tablet,exte tablet,exte tablet,ext ty nded nded ended Hospita release release release l TAKE 1 TAKE 1 TAKE 1 Clinics TABLET BY TABLET BY TABLET BY MOUTH EVERY MOUTH EVERY MOUTH DAY WITH DAY WITH EVERY DAY FOOD FOOD WITH FOOD levothyroxi levothyroxi No levothyrox [place] ne 112 mcg ne 112 mcg ine 112 Communi tablet 1 tablet 1 mcg tablet t y TAB DAILY TAB DAILY 1 TAB Hosp meryl 1/2 HR. 1/2 HR. DAILY 1/2 l BEFORE BEFORE HR. BEFORE Clini cs BREAKFAST BREAKFAST BREAKFAST WITH WATER WITH WATER WITH WATER lidocaine lidocaine No 2.1mL lidocaine [place] (PF) 10 (PF) 10 (PF) 10 Commun i mg/mL (1 %) mg/mL (1 %) mg/mL (1 ty injection injection %) Hospi ta solution solution injection l Take 2.1 mL Take 2.1 mL solution Clinics by by Take 2.1 injection injection mL by route. route. injection route. lidocaine lidocaine No 2.1mL Q1D lidocaine [place] (PF) 50 (PF) 50 (PF) 50 Commun [...] mL lidocaine 5 lidocaine 5 No lidocaine [place] % topical % topical 5 % Commu ni patch patch topical ty patch [facility] liothyronin liothyronin No liothyroni [place] e 5 mcg e 5 mcg ne 5 mcg Commu ni tablet tablet tablet ty [facility] mirtazapine mirtazapine No mirtazapin [place] 15 mg 15 mg e 15 mg Communi tablet TAKE tablet TAKE tablet ty 1 TABLET BY 1 TABLET BY TAKE 1 Hospita MOUTH MOUTH TABLET BY l EVERYDAY AT EVERYDAY AT MOUTH Clinics BEDTIME BEDTIME EVERYDAY AT BEDTIME nitroglycer nitroglycer No 1 nitroglyce [place] in 0.4 mg in 0.4 mg rin 0.4 mg Communi sublingual sublingual sublingual ty tablet [facility] [address] 1 l tablet as tablet as tablet as Clinics needed by needed by needed by sublingual sublingual sublingual route. route. route. omeprazole omeprazole No omeprazole [place] 20 mg 20 mg 20 mg Communi capsule,del capsule,del capsule,de ty ayed ayed layed [facility] release l TAKE 1 TAKE [...] DAY l Clinics pantoprazol pantoprazol No pantoprazo [place] e 40 mg e 40 mg le 40 mg Commu ni tablet,indira tablet,indira tablet,del ty yed release yed release ayed H ospita Take 1 Take 1 release l tablet BID tablet BID Take 1 C linics by mouth by mouth tablet BID by mouth phenazopyri phenazopyri No phenazopyr [place] dine 200 mg dine 200 mg idine 200 Communi tablet TAKE tablet TAKE mg tablet ty 1 TABLET BY 1 TABLET BY TAKE 1 Hospita MOUTH THREE MOUTH THREE TABLET BY l TIMES A DAY TIMES A DAY MOUTH Clinics FOR 3 DAYS FOR 3 DAYS THREE TIMES A DAY FOR 3 DAYS potassium potassium No potassium [place] chloride ER chloride ER chloride Communi 20 mEq 20 mEq ER 20 mEq ty tablet,exte tablet,exte tablet,ext Hospita nded nded ended l release(par release(par release(ri Clinics t/cryst) t/cryst) rt/cryst) TAKE 1 TAKE 1 TAKE 1 TABLET BY TABLET BY TABLET BY MOUTH EVERY MOUTH EVERY MOUTH DAY DAY EVERY DAY Santyl 250 Santyl 250 No Santyl 250 [place] unit/gram unit/gram unit/gram Communi topical topical topical ty ointment ointment ointment [facility] TO AMOUNT TO AMOUNT TO WOUND 3 WOUND 3 WOUND 3 TIMES A TIMES A TIMES A WEEK WEEK WEEK sotalol 160 sotalol 160 No sotalol [place] mg tablet mg tablet 160 mg Com raz TAKE 1 TAKE 1 tablet ty TABLET BY TABLET BY TAKE 1 [facility] MOUTH EVERY MOUTH EVERY TABLET BY l DAY DAY MOUTH Clinics EVERY DAY sulfamethox sulfamethox No sulfametho [place] azole 800 azole 800 xazole 800 Communi [...] Suprax 200 No 5mL BID Suprax 200 [place] mg/5 mL mg/5 mL mg/5 mL Commun i oral oral oral ty suspension suspension suspension Hospita Take 5 mL Take 5 mL Take 5 mL l twice a day twice a day twice a Clinics by oral by oral day by route for 7 route for 7 oral route days. days. for 7 days. tramadol 50 tramadol 50 No tramadol [place] mg tablet mg tablet 50 mg Comm uni TAKE 1 TAKE 1 tablet ty TABLET BY TABLET BY TAKE 1 [facility] MOUTH AT MOUTH AT TABLET BY l BEDTIME AND BEDTIME AND MOUTH AT Clinics IN MORNING IN MORNING BEDTIME AND IN MORNING amlodipine amlodipine No amlodipine [place] 5 mg tablet 5 mg tablet 5 mg C [facility] TAKE 1 TAKE 1 tablet ty TABLET BY TABLET BY TAKE 1 [facility] MOUTH EVERY MOUTH EVERY TABLET BY l DAY DAY MOUTH Clinics EVERY DAY atorvastati atorvastati No atorvastat [place] n 20 mg n 20 mg in 20 mg Commu ni tablet TAKE tablet TAKE tablet ty 1 TABLET BY 1 TABLET BY TAKE 1 Hospita MOUTH EVERY MOUTH EVERY TABLET BY l DAY FOR 90 DAY FOR 90 MOUTH Cl inics DAYS DAYS EVERY DAY FOR 90 DAYS BD Kalee 2nd BD Kalee 2nd No BD Kalee [place] Gen Pen Gen Pen 2nd Gen Commun i Needle 32 Needle 32 Pen Needle ty gauge x gauge x 32 gauge x [facility] " 1 " 1 " 1 l TIME A DAY TIME A DAY TIME A DAY Clinics ceftriaxone ceftriaxone No 500mg ceftriaxon [place] 500 mg 500 mg e 500 mg Communi solution solution solution ty for for for Hospita injection injection injection l Take 500 mg Take 500 mg Take 500 Clinics by by mg by injection injection injection route. pt route. pt route. pt tolerated tolerated tolerated well well well cholecalcif cholecalcif No cholecalci [place] ghada ghada ferol Communi (vitamin (vitamin (vitamin ty D3) 1,250 D3) 1,250 D3) 1,250 Hospita mcg (50,000 mcg (50,000 mcg l unit) unit) (50,000 Clinics capsule capsule unit) TAKE 1 TAKE 1 capsule CAPSULE CAPSULE TAKE 1 EVERY 15 EVERY 15 CAPSULE DAYS DAYS EVERY 15 DAYS clonazepam clonazepam No clonazepam [place] 0.5 mg 0.5 mg 0.5 mg Communi tablet TAKE tablet TAKE tablet ty 1 TABLET BY 1 TABLET BY TAKE 1 Hospita MOUTH EVERY MOUTH EVERY TABLET BY l DAY DAY MOUTH Clinics NEEDED NEEDED EVERY DAY NEEDED cyclobenzap cyclobenzap No cyclobenza [place] rine 10 mg rine 10 mg rita 10 Communi tablet tablet mg tablet ty Hospita l Clinics diclofenac diclofenac No diclofenac [place] sodium 75 sodium 75 sodium 75 Communi [...] DAY EVERY DAY famotidine famotidine No famotidine [place] 20 mg 20 mg 20 mg Communi tablet Take tablet Take tablet ty 1 tablet 1 tablet Take 1 Hospi ta daily by daily by tablet l mouth mouth daily by Clinics mouth ferrous ferrous No ferrous [place] sulfate 220 sulfate 220 sulfate Communi mg (44 mg mg (44 mg 220 mg (44 ty iron)/5 mL iron)/5 mL mg iron)/5 Hospita oral elixir oral elixir mL oral l Take 5 ML Take 5 ML elixir Cli nics BID by BID by Take 5 ML mouth mouth BID by mouth glipizide glipizide No glipizide [place] ER 2.5 mg ER 2.5 mg ER 2.5 mg Communi tablet, tablet, tablet, ty extended extended extended [facility] release 24 release 24 release 24 l hr hr hr Clinics Humatrope 6 Humatrope 6 No Humatrope [place] mg (18 mg (18 6 mg (18 Communi unit) unit) unit) ty injection injection injection [facility] cartridge cartridge cartridge l INJECT INJECT INJECT Clinics 0.3MG 0.3MG 0.3MG SUBCUTANEOU SUBCUTANEOU SUBCUTANEO SLY EVERY SLY EVERY USLY EVERY DAY DAY DAY hydrocortis hydrocortis No hydrocorti [place] one 20 mg one 20 mg sone 20 mg Communi tablet TAKE tablet TAKE tablet ty 2 TABLETS 2 TABLETS TAKE 2 [facility] BY MOUTH BY MOUTH TABLETS BY l EVERY DAY EVERY DAY MOUTH Clin ics IN THE IN THE EVERY DAY MORNING MORNING IN THE MORNING isosorbide isosorbide No isosorbide [place] mononitrate mononitrate mononitrat Communi ER 30 mg ER 30 mg e ER 30 mg t y tablet,exte tablet,exte tablet,ext Hospita nded nded ended l release 24 release 24 release 24 Clinics hr TAKE 1 hr TAKE 1 hr TAKE 1 TABLET BY TABLET BY TABLET BY MOUTH EVERY MOUTH EVERY MOUTH DAY DAY EVERY DAY Klor-Con 10 Klor-Con 10 No Klor-Con [place] mEq mEq 10 mEq Communi tablet,exte tablet,exte tablet,ext ty nded nded ended Hospita release release release l TAKE 1 TAKE 1 TAKE 1 Clinics TABLET BY TABLET BY TABLET BY MOUTH EVERY MOUTH EVERY MOUTH DAY WITH DAY WITH EVERY DAY FOOD FOOD WITH FOOD levothyroxi levothyroxi No levothyrox [place] ne 112 mcg ne 112 mcg ine 112 Communi tablet 1 tablet 1 mcg tablet t y TAB DAILY TAB DAILY 1 TAB Hosp [facility]yl 1/2 HR. 1/2 HR. DAILY 1/2 l BEFORE BEFORE HR. BEFORE Clini cs BREAKFAST BREAKFAST BREAKFAST WITH WATER WITH WATER WITH WATER lidocaine lidocaine No 2.1mL lidocaine [place] (PF) 10 (PF) 10 (PF) 10 Commun i mg/mL (1 %) mg/mL (1 %) mg/mL (1 ty injection injection %) Hospi ta solution solution injection l Take 2.1 mL Take 2.1 mL solution Clinics by by Take 2.1 injection injection mL by route. route. injection route. lidocaine lidocaine No 2.1mL Q1D lidocaine [place] (PF) 50 (PF) 50 (PF) 50 Commun [...] mL lidocaine 5 lidocaine 5 No lidocaine [place] % topical % topical 5 % [facility]othy[facility] No liothyroni [place] e 5 mcg e 5 mcg ne 5 mcg Commu ni tablet tablet tablet ty [facility] mirtazapine mirtazapine No mirtazapin [place] 15 mg 15 mg e 15 mg Communi tablet TAKE tablet TAKE tablet ty 1 TABLET BY 1 TABLET BY TAKE 1 Hospita MOUTH MOUTH TABLET BY l EVERYDAY AT EVERYDAY AT MOUTH Clinics BEDTIME BEDTIME EVERYDAY AT BEDTIME nitroglycer nitroglycer No 1 nitroglyce [place] in 0.4 mg in 0.4 mg rin 0.4 mg Communi sublingual sublingual sublingual ty tablet [facility] [address] 1 l tablet as tablet as tablet as Clinics needed by needed by needed by sublingual sublingual sublingual route. route. route. omeprazole omeprazole No omeprazole [place] 20 mg 20 mg 20 mg Communi [...] ty gauge TEST gauge TEST gauge TEST [facility] TWICE A DAY TWICE A DAY [...] DAY l Clinics pantoprazol pantoprazol No pantoprazo [place] e 40 mg e 40 mg le 40 mg Commu ni tablet,indira tablet,indira tablet,del ty yed release yed release ayed H ospita Take 1 Take 1 release l tablet BID tablet BID Take 1 C linics by mouth by mouth tablet BID by mouth phenazopyri phenazopyri No phenazopyr [place] dine 200 mg dine 200 mg idine 200 Communi tablet TAKE tablet TAKE mg tablet ty 1 TABLET BY 1 TABLET BY TAKE 1 Hospita MOUTH THREE MOUTH THREE TABLET BY l TIMES A DAY TIMES A DAY MOUTH Clinics FOR 3 DAYS FOR 3 DAYS THREE TIMES A DAY FOR 3 DAYS potassium potassium No potassium [place] chloride ER chloride ER chloride Communi 20 mEq 20 mEq ER 20 mEq ty tablet,exte tablet,exte tablet,ext Hospita nded nded ended l release(par release(par release(pa Clinics t/cryst) t/cryst) rt/cryst) TAKE 1 TAKE 1 TAKE 1 TABLET BY TABLET BY TABLET BY MOUTH EVERY MOUTH EVERY MOUTH DAY DAY EVERY DAY Santyl 250 Santyl 250 No Santyl 250 [place] unit/gram unit/gram unit/gram Communi topical topical topical ty ointment ointment ointment [facility] APPLY A APPLY A APPLY A l [facility] THICK THICK THICK AMOUNT TO AMOUNT TO AMOUNT TO WOUND 3 WOUND 3 WOUND 3 TIMES A TIMES A TIMES A WEEK WEEK WEEK sotalol 160 sotalol 160 No sotalol [place] mg tablet mg tablet 160 mg Com raz TAKE 1 TAKE 1 tablet ty TABLET BY TABLET BY TAKE 1 [facility] MOUTH EVERY MOUTH EVERY TABLET BY l DAY DAY MOUTH Clinics EVERY DAY sulfamethox sulfamethox No sulfametho [place] azole 800 azole 800 xazole 800 Communi [...] Suprax 200 No 5mL BID Suprax 200 [place] mg/5 mL mg/5 mL mg/5 mL Commun i oral oral oral ty [facility] mL Take 5 mL Take 5 mL l twice a day twice a day twice a Clinics by oral by oral day by route for 7 route for 7 oral route days. days. for 7 days. tramadol 50 tramadol 50 No tramadol [place] mg tablet mg tablet 50 mg Comm uni TAKE 1 TAKE 1 tablet ty TABLET BY TABLET BY TAKE 1 [facility] MOUTH AT MOUTH AT TABLET BY l BEDTIME AND BEDTIME AND MOUTH AT Clinics IN MORNING IN MORNING BEDTIME AND IN MORNING amlodipine amlodipine No amlodipine [place] 5 mg tablet 5 mg tablet 5 mg C om[facility]i TAKE 1 TAKE 1 tablet ty TABLET BY TABLET BY TAKE 1 [facility] MOUTH EVERY MOUTH EVERY TABLET BY l DAY DAY MOUTH Clinics EVERY DAY atorvastati atorvastati No atorvastat [place] n 20 mg n 20 mg in 20 mg Commu ni tablet TAKE tablet TAKE tablet ty 1 TABLET BY 1 TABLET BY TAKE 1 Hospita MOUTH EVERY MOUTH EVERY TABLET BY l DAY FOR 90 DAY FOR 90 MOUTH Cl inics DAYS DAYS EVERY DAY FOR 90 DAYS BD Kalee 2nd BD Kalee 2nd No BD Kalee [place] Gen Pen Gen Pen 2nd Gen Commun i Needle 32 Needle 32 Pen Needle ty gauge x gauge x 32 gauge x [facility] " 1 " 1 " 1 l TIME A DAY TIME A DAY TIME A DAY Clinics ceftriaxone ceftriaxone No 500mg ceftriaxon [place] 500 mg 500 mg e 500 mg Communi solution solution solution ty for for for Hospita injection injection injection l Take 500 mg Take 500 mg Take 500 Clinics by by mg by injection injection injection route. pt route. pt route. pt tolerated tolerated tolerated well well well cholecalcif cholecalcif No cholecalci [place] ghada ghada ferol Communi (vitamin (vitamin (vitamin ty D3) 1,250 D3) 1,250 D3) 1,250 Hospita mcg (50,000 mcg (50,000 mcg l unit) unit) (50,000 Clinics capsule capsule unit) TAKE 1 TAKE 1 capsule CAPSULE CAPSULE TAKE 1 EVERY 15 EVERY 15 CAPSULE DAYS DAYS EVERY 15 DAYS clonazepam clonazepam No clonazepam [place] 0.5 mg 0.5 mg 0.5 mg Communi tablet TAKE tablet TAKE tablet ty 1 TABLET BY 1 TABLET BY TAKE 1 Hospita MOUTH EVERY MOUTH EVERY TABLET BY l DAY DAY MOUTH Clinics NEEDED NEEDED EVERY DAY NEEDED cyclobenzap cyclobenzap No cyclobenza [place] rine 10 mg rine 10 mg rita 10 Communi tablet tablet mg tablet ty Hospita l Clinics diclofenac diclofenac No diclofenac [place] sodium 75 sodium 75 sodium 75 Communi [...] DAY EVERY DAY famotidine famotidine No famotidine [place] 20 mg 20 mg 20 mg Communi tablet Take tablet Take tablet ty 1 tablet 1 tablet Take 1 Hospi ta daily by daily by tablet l mouth mouth daily by Clinics mouth ferrous ferrous No ferrous [place] sulfate 220 sulfate 220 sulfate Communi mg (44 mg mg (44 mg 220 mg (44 ty iron)/5 mL iron)/5 mL mg iron)/5 Hospita oral elixir oral elixir mL oral l Take 5 ML Take 5 ML elixir Cli nics BID by BID by Take 5 ML mouth mouth BID by mouth glipizide glipizide No glipizide [place] ER 2.5 mg ER 2.5 mg ER 2.5 mg Communi tablet, tablet, tablet, ty extended extended extended [facility] release 24 release 24 release 24 l hr hr hr Clinics Humatrope 6 Humatrope 6 No Humatrope [place] mg (18 mg (18 6 mg (18 Communi unit) unit) unit) ty injection injection injection [facility] cartridge cartridge cartridge l INJECT INJECT INJECT [facility] 0.3MG 0.3MG 0.3MG SUBCUTANEOU SUBCUTANEOU SUBCUTANEO SLY EVERY SLY EVERY USLY EVERY DAY DAY DAY hydrocortis hydrocortis No hydrocorti [place] one 20 mg one 20 mg sone 20 mg Communi tablet TAKE tablet TAKE tablet ty 2 TABLETS 2 TABLETS TAKE 2 [facility] BY MOUTH BY MOUTH TABLETS BY l EVERY DAY EVERY DAY MOUTH Clin ics IN THE IN THE EVERY DAY MORNING MORNING IN THE MORNING isosorbide isosorbide No isosorbide [place] mononitrate mononitrate mononitrat Communi ER 30 mg ER 30 mg e ER 30 mg t y tablet,exte tablet,exte tablet,ext Hospita nded nded ended l release 24 release 24 release 24 Clinics hr TAKE 1 hr TAKE 1 hr TAKE 1 TABLET BY TABLET BY TABLET BY MOUTH EVERY MOUTH EVERY MOUTH DAY DAY EVERY DAY Klor-Con 10 Klor-Con 10 No Klor-Con [place] mEq mEq 10 mEq Communi tablet,exte tablet,exte tablet,ext ty nded nded ended Hospita release release release l TAKE 1 TAKE 1 TAKE 1 Clinics TABLET BY TABLET BY TABLET BY MOUTH EVERY MOUTH EVERY MOUTH DAY WITH DAY WITH EVERY DAY FOOD FOOD WITH FOOD levothyroxi levothyroxi No levothyrox [place] ne 112 mcg ne 112 mcg ine 112 Communi tablet 1 tablet 1 mcg tablet t y TAB DAILY TAB DAILY 1 TAB Hosp meryl 1/2 HR. 1/2 HR. DAILY 1/2 l BEFORE BEFORE HR. BEFORE Clini cs BREAKFAST BREAKFAST BREAKFAST WITH WATER WITH WATER WITH WATER lidocaine lidocaine No 2.1mL lidocaine [place] (PF) 10 (PF) 10 (PF) 10 Commun i mg/mL (1 %) mg/mL (1 %) mg/mL (1 ty injection injection %) [facility] ta solution solution injection l Take 2.1 mL Take 2.1 mL solution Clinics by by Take 2.1 injection injection mL by route. route. injection route. lidocaine lidocaine No 2.1mL Q1D lidocaine [place] (PF) 50 (PF) 50 (PF) 50 Commun i mg/5 mL (1 mg/5 mL (1 mg/5 mL (1 ty %) %) %) [facility] injection l syringe syringe syringe Clinic s Take 2.1 mL Take 2.1 mL Take 2.1 every day every day mL every by by day by injection injection injection route. pt route. pt route. pt tolerated tolerated tolerated well, well, well, wasted 2.9 wasted 2.9 wasted 2.9 mL mL mL lidocaine 5 lidocaine 5 No lidocaine [place] % topical % topical 5 % Commu ni patch patch topical ty patch [facility] liothyronin liothyronin No liothyroni [place] e 5 mcg e 5 mcg ne 5 mcg Commu ni tablet tablet tablet ty [facility] mirtazapine mirtazapine No mirtazapin [place] 15 mg 15 mg e 15 mg Communi tablet TAKE tablet TAKE tablet ty 1 TABLET BY 1 TABLET BY TAKE 1 Hospita MOUTH MOUTH TABLET BY l EVERYDAY AT EVERYDAY AT MOUTH Clinics BEDTIME BEDTIME EVERYDAY AT BEDTIME nitroglycer nitroglycer No 1 nitroglyce [place] in 0.4 mg in 0.4 mg rin 0.4 mg Communi sublingual sublingual sublingual ty tablet tablet tablet Hospita Place [address] 1 l tablet as tablet as tablet as Clinics needed by needed by needed by sublingual sublingual sublingual route. route. route. omeprazole omeprazole No omeprazole [place] 20 mg 20 mg 20 mg Communi [...] DAY l Clinics pantoprazol pantoprazol No pantoprazo [place] e 40 mg e 40 mg le 40 mg Commu ni tablet,indira tablet,indira tablet,del ty yed release yed release ayed H ospita Take 1 Take 1 release l tablet BID tablet BID Take 1 C linics by mouth by mouth tablet BID by mouth phenazopyri phenazopyri No phenazopyr [place] dine 200 mg dine 200 mg idine 200 Communi tablet TAKE tablet TAKE mg tablet ty 1 TABLET BY 1 TABLET BY TAKE 1 Hospita MOUTH THREE MOUTH THREE TABLET BY l TIMES A DAY TIMES A DAY MOUTH Clinics FOR 3 DAYS FOR 3 DAYS THREE TIMES A DAY FOR 3 DAYS potassium potassium No potassium [place] chloride ER chloride ER chloride Communi 20 mEq 20 mEq ER 20 mEq ty tablet,exte tablet,exte tablet,ext Hospita nded nded ended l release(par release(par release(ri Clinics t/cryst) t/cryst) rt/cryst) TAKE 1 TAKE 1 TAKE 1 TABLET BY TABLET BY TABLET BY MOUTH EVERY MOUTH EVERY MOUTH DAY DAY EVERY DAY Santyl 250 Santyl 250 No Santyl 250 [place] unit/gram unit/gram unit/gram Communi topical topical topical ty ointment ointment ointment [facility] APPLY A APPLY A APPLY A l DIONY [facility] THICK THICK THICK AMOUNT TO AMOUNT TO AMOUNT TO WOUND 3 WOUND 3 WOUND 3 TIMES A TIMES A TIMES A WEEK WEEK WEEK sotalol 160 sotalol 160 No sotalol [place] mg tablet mg tablet 160 mg Com raz TAKE 1 TAKE 1 tablet ty TABLET BY TABLET BY TAKE 1 [facility] MOUTH EVERY MOUTH EVERY TABLET BY l DAY DAY MOUTH Clinics EVERY DAY sulfamethox sulfamethox No sulfametho [place] azole 800 azole 800 xazole 800 Communi [...] Suprax 200 No 5mL BID Suprax 200 [place] mg/5 mL mg/5 mL mg/5 mL Commun i oral oral oral ty suspension suspension suspension Hospita Take 5 mL Take 5 mL Take 5 mL l twice a day twice a day twice a Clinics by oral by oral day by route for 7 route for 7 oral route days. days. for 7 days. tramadol 50 tramadol 50 No tramadol [place] mg tablet mg tablet 50 mg Comm uni TAKE 1 TAKE 1 tablet ty TABLET BY TABLET BY TAKE 1 [facility] MOUTH AT MOUTH AT TABLET BY l BEDTIME AND BEDTIME AND MOUTH AT Clinics IN MORNING IN MORNING BEDTIME AND IN MORNING amlodipine amlodipine No amlodipine [place] 5 mg tablet 5 mg tablet 5 mg C [facility] TAKE 1 TAKE 1 tablet ty TABLET BY TABLET BY TAKE 1 [facility] MOUTH EVERY MOUTH EVERY TABLET BY l DAY DAY MOUTH Clinics EVERY DAY atorvastati atorvastati No atorvastat [place] n 20 mg n 20 mg in 20 mg Commu ni tablet TAKE tablet TAKE tablet ty 1 TABLET BY 1 TABLET BY TAKE 1 Hospita MOUTH EVERY MOUTH EVERY TABLET BY l DAY FOR 90 DAY FOR 90 MOUTH Cl inics DAYS DAYS EVERY DAY FOR 90 DAYS BD Kalee 2nd BD Kalee 2nd No BD Kalee [place] Gen Pen Gen Pen 2nd Gen Commun i Needle 32 Needle 32 Pen Needle ty gauge x gauge x 32 gauge x [facility] " 1 " 1 " 1 l TIME A DAY TIME A DAY TIME A DAY Clinics ceftriaxone ceftriaxone No 500mg ceftriaxon [place] 500 mg 500 mg e 500 mg Communi solution solution solution ty for for for Hospita injection injection injection l Take 500 mg Take 500 mg Take 500 Clinics by by mg by injection injection injection route. pt route. pt route. pt tolerated tolerated tolerated well well well cholecalcif cholecalcif No cholecalci [place] ghada ghada ferol Communi (vitamin (vitamin (vitamin ty D3) 1,250 D3) 1,250 D3) 1,250 Hospita mcg (50,000 mcg (50,000 mcg l unit) unit) (50,000 Clinics capsule capsule unit) TAKE 1 TAKE 1 capsule CAPSULE CAPSULE TAKE 1 EVERY 15 EVERY 15 CAPSULE DAYS DAYS EVERY 15 DAYS clonazepam clonazepam No clonazepam [place] 0.5 mg 0.5 mg 0.5 mg Communi tablet TAKE tablet TAKE tablet ty 1 TABLET BY 1 TABLET BY TAKE 1 Hospita MOUTH EVERY MOUTH EVERY TABLET BY l DAY DAY MOUTH Clinics NEEDED NEEDED EVERY DAY NEEDED cyclobenzap cyclobenzap No cyclobenza [place] rine 10 mg rine 10 mg rita 10 Communi tablet tablet mg tablet ty Hospita l Clinics diclofenac diclofenac No diclofenac [place] sodium 75 sodium 75 sodium 75 Communi [...] DAY EVERY DAY famotidine famotidine No famotidine [place] 20 mg 20 mg 20 mg Communi tablet Take tablet Take tablet ty 1 tablet 1 tablet Take 1 Hospi ta daily by daily by tablet l mouth mouth daily by Clinics mouth ferrous ferrous No ferrous [place] sulfate 220 sulfate 220 sulfate Communi mg (44 mg mg (44 mg 220 mg (44 ty iron)/5 mL iron)/5 mL mg iron)/5 Hospita oral elixir oral elixir mL oral l Take 5 ML Take 5 ML elixir Cli nics BID by BID by Take 5 ML mouth mouth BID by mouth glipizide glipizide No glipizide [place] ER 2.5 mg ER 2.5 mg ER 2.5 mg Communi tablet, tablet, tablet, ty extended extended extended [facility] release 24 release 24 release 24 l hr hr hr Clinics Humatrope 6 Humatrope 6 No Humatrope [place] mg (18 mg (18 6 mg (18 Communi unit) unit) unit) ty injection injection injection Hospita cartridge cartridge cartridge l INJECT INJECT INJECT Clinics 0.3MG 0.3MG 0.3MG SUBCUTANEOU SUBCUTANEOU SUBCUTANEO SLY EVERY SLY EVERY USLY EVERY DAY DAY DAY hydrocortis hydrocortis No hydrocorti [place] one 20 mg one 20 mg sone 20 mg Communi tablet TAKE tablet TAKE tablet ty 2 TABLETS 2 TABLETS TAKE 2 [facility] BY MOUTH BY MOUTH TABLETS BY l EVERY DAY EVERY DAY MOUTH Clin ics IN THE IN THE EVERY DAY MORNING MORNING IN THE MORNING isosorbide isosorbide No isosorbide [place] mononitrate mononitrate mononitrat Communi ER 30 mg ER 30 mg e ER 30 mg t y tablet,exte tablet,exte tablet,ext Hospita nded nded ended l release 24 release 24 release 24 Clinics hr TAKE 1 hr TAKE 1 hr TAKE 1 TABLET BY TABLET BY TABLET BY MOUTH EVERY MOUTH EVERY MOUTH DAY DAY EVERY DAY Klor-Con 10 Klor-Con 10 No Klor-Con [place] mEq mEq 10 mEq Communi tablet,exte tablet,exte tablet,ext ty nded nded ended Hospita release release release l TAKE 1 TAKE 1 TAKE 1 Clinics TABLET BY TABLET BY TABLET BY MOUTH EVERY MOUTH EVERY MOUTH DAY WITH DAY WITH EVERY DAY FOOD FOOD WITH FOOD levothyroxi levothyroxi No levothyrox [place] ne 112 mcg ne 112 mcg ine 112 Communi tablet 1 tablet 1 mcg tablet t y TAB DAILY TAB DAILY 1 TAB [facility] 1/2 HR. 1/2 HR. DAILY 1/2 l BEFORE BEFORE HR. BEFORE Clini cs BREAKFAST BREAKFAST BREAKFAST WITH WATER WITH WATER WITH WATER lidocaine lidocaine No 2.1mL lidocaine [place] (PF) 10 (PF) 10 (PF) 10 Commun i mg/mL (1 %) mg/mL (1 %) mg/mL (1 ty injection injection %) Hospi ta solution solution injection l Take 2.1 mL Take 2.1 mL solution Clinics by by Take 2.1 injection injection mL by route. route. injection route. lidocaine lidocaine No 2.1mL Q1D lidocaine [place] (PF) 50 (PF) 50 (PF) 50 Commun i mg/5 mL (1 mg/5 mL (1 mg/5 mL (1 ty %) %) %) [facility] injection injection injection l syringe syringe syringe Clinic s Take 2.1 mL Take 2.1 mL Take 2.1 every day every day mL every by by day by injection injection injection route. pt route. pt route. pt tolerated tolerated tolerated well, well, well, wasted 2.9 wasted 2.9 wasted 2.9 mL mL mL lidocaine 5 lidocaine 5 No lidocaine [place] % topical % topical 5 % Commu ni patch patch topical ty patch [facility] liothyronin liothyronin No liothyroni [place] e 5 mcg e 5 mcg ne 5 mcg Commu ni tablet tablet tablet ty [facility] mirtazapine mirtazapine No mirtazapin [place] 15 mg 15 mg e 15 mg Communi tablet TAKE tablet TAKE tablet ty 1 TABLET BY 1 TABLET BY TAKE 1 Hospita MOUTH MOUTH TABLET BY l EVERYDAY AT EVERYDAY AT MOUTH Clinics BEDTIME BEDTIME EVERYDAY AT BEDTIME nitroglycer nitroglycer No 1 nitroglyce [place] in 0.4 mg in 0.4 mg rin 0.4 mg Communi sublingual sublingual sublingual ty tablet tablet [facility] [address] 1 l tablet as tablet as tablet as Clinics needed by needed by needed by sublingual sublingual sublingual route. route. route. omeprazole omeprazole No omeprazole [place] 20 mg 20 mg 20 mg Communi capsule,del capsule,del capsule,de ty ayed ayed layed [facility] release release release l TAKE 1 TAKE 1 TAKE 1 Clinics CAPSULE BY CAPSULE BY CAPSULE BY MOUTH EVERY MOUTH EVERY MOUTH MORNING MORNING EVERY MORNING OneTouch OneTouch No OneTouch Swe madeleine [facility] Lancets 30 Lancets 30 Lancets 30 ty gauge TEST gauge TEST gauge TEST [facility] TWICE A DAY TWICE A DAY TWICE A l DAY Clinics OneTouch OneTouch No OneTouch Swe madeleine Verio Flex Verio Flex Verio Flex Communi Meter FOR Meter FOR Meter FOR ty TESTING.1 TESTING.1 TESTING.1 [facility] BOX ICD 10 BOX ICD 10 BOX ICD 10 l E11.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.65 Clinics OneTouch OneTouch No OneTouch Swe madeleine Verio test Verio test Verio test Communi strips TEST strips TEST strips ty TWICE A DAY TWICE A DAY TEST TWICE Hospita A DAY l Clinics pantoprazol pantoprazol No pantoprazo [place] e 40 mg e 40 mg le 40 mg Commu ni tablet,indira tablet,indira tablet,del ty yed release yed release ayed H ospita Take 1 Take 1 release l tablet BID tablet BID Take 1 C linics by mouth by mouth tablet BID by mouth phenazopyri phenazopyri No phenazopyr [place] dine 200 mg dine 200 mg idine 200 Communi tablet TAKE tablet TAKE mg tablet ty 1 TABLET BY 1 TABLET BY TAKE 1 Hospita MOUTH THREE MOUTH THREE TABLET BY l TIMES A DAY TIMES A DAY MOUTH Clinics FOR 3 DAYS FOR 3 DAYS THREE TIMES A DAY FOR 3 DAYS potassium potassium No potassium [place] chloride ER chloride ER chloride Communi 20 mEq 20 mEq ER 20 mEq ty tablet,exte tablet,exte tablet,ext Hospita nded nded ended l release(par release(par release(ri Clinics t/cryst) t/cryst) rt/cryst) TAKE 1 TAKE 1 TAKE 1 TABLET BY TABLET BY TABLET BY MOUTH EVERY MOUTH EVERY MOUTH DAY DAY EVERY DAY Santyl 250 Santyl 250 No Santyl 250 [place] unit/gram unit/gram unit/gram Communi topical topical topical ty ointment ointment ointment [facility] APPLY A APPLY A APPLY A l [facility] THICK THICK THICK AMOUNT TO AMOUNT TO AMOUNT TO WOUND 3 WOUND 3 WOUND 3 TIMES A TIMES A TIMES A WEEK WEEK WEEK sotalol 160 sotalol 160 No sotalol [place] mg tablet mg tablet 160 mg Com raz TAKE 1 TAKE 1 tablet ty TABLET BY TABLET BY TAKE 1 [facility] MOUTH TWICE MOUTH TWICE TABLET BY l A DAY A DAY MOUTH Clinics TWICE A DAY sulfamethox sulfamethox No sulfametho [place] azole 800 azole 800 xazole 800 Communi [...] Suprax 200 No 5mL BID Suprax 200 [place] mg/5 mL mg/5 mL mg/5 mL Commun i oral oral oral ty suspension suspension suspension Hospita Take 5 mL Take 5 mL Take 5 mL l twice a day twice a day twice a Clinics by oral by oral day by route for 7 route for 7 oral route days. days. for 7 days. tramadol 50 tramadol 50 No tramadol [place] mg tablet mg tablet 50 mg Comm uni TAKE 1 TAKE 1 tablet ty TABLET BY TABLET BY TAKE 1 [facility] MOUTH AT MOUTH AT TABLET BY l BEDTIME AND BEDTIME AND MOUTH AT Clinics IN MORNING IN MORNING BEDTIME AND IN MORNING amlodipine amlodipine No amlodipine [place] 5 mg tablet 5 mg tablet 5 mg C [facility] TAKE 1 TAKE 1 tablet ty TABLET BY TABLET BY TAKE 1 [facility] MOUTH EVERY MOUTH EVERY TABLET BY l DAY DAY MOUTH Clinics EVERY DAY atorvastati atorvastati No atorvastat [place] n 20 mg n 20 mg in 20 mg Commu ni tablet TAKE tablet TAKE tablet ty 1 TABLET BY 1 TABLET BY TAKE 1 Hospita MOUTH EVERY MOUTH EVERY TABLET BY l DAY FOR 90 DAY FOR 90 MOUTH Cl inics DAYS DAYS EVERY DAY FOR 90 DAYS BD Kalee 2nd BD Kalee 2nd No BD Kalee [place] Gen Pen Gen Pen 2nd Gen Commun i Needle 32 Needle 32 Pen Needle ty gauge x gauge x 32 gauge x [facility] 32" 1 " 1 " 1 l TIME A DAY TIME A DAY TIME A DAY Clinics cholecalcif cholecalcif No cholecalci [place] ghada ghada ferol Communi (vitamin (vitamin (vitamin ty D3) 1,250 D3) 1,250 D3) 1,250 Hospita mcg (50,000 mcg (50,000 mcg l unit) unit) (50,000 Clinics capsule capsule unit) TAKE 1 TAKE 1 capsule CAPSULES BY CAPSULES BY TAKE 1 MOUTH ONCE MOUTH ONCE CAPSULES EVERY 15 EVERY 15 BY MOUTH DAYS DAYS ONCE EVERY 15 DAYS clonazepam clonazepam No clonazepam [place] 0.5 mg 0.5 mg 0.5 mg Communi [...] DAY EVERY DAY famotidine famotidine No famotidine [place] 20 mg 20 mg 20 mg Communi tablet TAKE tablet TAKE tablet ty 1 TABLET BY 1 TABLET BY TAKE 1 Hospita MOUTH AT MOUTH AT TABLET BY l BEDTIME BEDTIME MOUTH AT Clini cs BEDTIME glipizide glipizide No glipizide [place] ER 2.5 mg ER 2.5 mg ER [...] BREAKFAST Humatrope 6 Humatrope 6 No Humatrope [place] mg (18 mg (18 6 mg (18 Communi unit) unit) unit) ty injection injection injection [facility] cartridge cartridge cartridge l INJECT INJECT INJECT Clinics 0.3MG 0.3MG 0.3MG SUBCUTANEOU SUBCUTANEOU SUBCUTANEO SLY EVERY SLY EVERY USLY EVERY DAY DAY DAY hydrocortis hydrocortis No hydrocorti [place] one 20 mg one 20 mg sone 20 mg Communi tablet TAKE tablet TAKE tablet ty 1 TABLET BY 1 TABLET BY TAKE 1 Hospita MOUTH WITH MOUTH WITH TABLET BY l BREAKFAST, BREAKFAST, MOUTH WITH Clinics THEN TAKE 2 THEN TAKE 2 BREAKFAST, TABLETS TABLETS THEN TAKE WITH WITH 2 TABLETS DINNER. DINNER. WITH DINNER. isosorbide isosorbide No isosorbide [place] mononitrate mononitrate mononitrat Communi ER 30 mg ER 30 mg e ER 30 mg t y tablet,exte tablet,exte tablet,ext Hospita nded nded ended l release 24 release 24 release 24 Clinics hr TAKE 1 hr TAKE 1 hr TAKE 1 TABLET BY TABLET BY TABLET BY MOUTH EVERY MOUTH EVERY MOUTH DAY DAY EVERY DAY Klor-Con 10 Klor-Con 10 No Klor-Con [place] mEq mEq 10 mEq Communi tablet,exte tablet,exte tablet,ext ty nded nded ended Hospita release release release l TAKE 1 TAKE 1 TAKE 1 Clinics TABLET BY TABLET BY TABLET BY MOUTH EVERY MOUTH EVERY MOUTH DAY WITH DAY WITH EVERY DAY FOOD FOOD WITH FOOD levothyroxi levothyroxi No levothyrox [place] ne 112 mcg ne 112 mcg ine 112 Communi tablet TAKE tablet TAKE mcg tablet ty 1 TABLET BY 1 TABLET BY TAKE 1 Hospita MOUTH DAILY MOUTH DAILY TABLET BY l 1/2 HOUR 1/2 HOUR MOUTH Clinic s BEFORE BEFORE DAILY 1/2 BREAKFAST BREAKFAST HOUR WITH WATER WITH WATER BEFORE BREAKFAST WITH WATER lidocaine 5 lidocaine 5 No lidocaine [place] % topical % topical 5 % Commu ni patch APPLY patch APPLY topical ty 1 PATCH BY 1 PATCH BY patch Ho spita TOPICAL TOPICAL APPLY 1 l ROUTE ONCE ROUTE ONCE PATCH BY Clinics DAILY (MAY DAILY (MAY TOPICAL WEAR UP TO WEAR UP TO ROUTE ONCE 12HOURS.) 12HOURS.) DAILY (MAY WEAR UP TO 12HOURS.) liothyronin liothyronin No liothyroni [place] e 5 mcg e 5 mcg ne [...] BREAKFAST WITH WATER mirtazapine mirtazapine No mirtazapin [place] 15 mg 15 mg e 15 mg Communi tablet TAKE tablet TAKE tablet ty 1 TABLET BY 1 TABLET BY TAKE 1 Hospita MOUTH MOUTH TABLET BY l EVERYDAY AT EVERYDAY AT MOUTH Clinics BEDTIME BEDTIME EVERYDAY AT BEDTIME nitroglycer nitroglycer No 1 nitroglyce [place] in 0.4 mg in 0.4 mg rin 0.4 mg Communi sublingual sublingual sublingual ty tablet tablet tablet [facility] Place [address] 1 l tablet as tablet as tablet as Clinics needed by needed by needed by sublingual sublingual sublingual route. route. route. omeprazole omeprazole No omeprazole [place] 40 mg 40 mg 40 mg Communi capsule,del capsule,del capsule,de ty ayed ayed layed Hospita release release release l TAKE 1 TAKE 1 TAKE 1 Clinics CAPSULE BY CAPSULE BY CAPSULE BY MOUTH EVERY MOUTH EVERY MOUTH MORNING MORNING EVERY MORNING Immunizations Ordered Immunization Filled Immunization Date Status Commen ts Source Name Name influenza, influenza, 2022-05-05 Completed [place] Communi ty high-dose, high-dose, 00:00:00 [facility] quadrivalent quadrivalent Pneumococcal Pneumococcal 2022-05-05 Completed [place] Com munity conjugate [email or web address], conjugate PCV20, 00:00:00 [facility] polysaccharide polysaccharide [id number] conjugate, [id number] conjugate, adjuvant, PF adjuvant, PF influenza, influenza, 2022-05-05 Completed [place] Communi ty high-dose, high-dose, 00:00:00 Hospital Clini cs quadrivalent quadrivalent Pneumococcal Pneumococcal 2022-05-05 Completed [place] Com munity conjugate PCV20, conjugate PCV20, 00:00:00 [facility] polysaccharide polysaccharide [id number] conjugate, [id number] conjugate, adjuvant, PF adjuvant, PF influenza, influenza, 2022-05-05 Completed [place] Communi ty high-dose, high-dose, 00:00:00 Hospital Clini [facility] quadrivalent quadrivalent Pneumococcal Pneumococcal 2022-05-05 Completed [place] Com munity conjugate PCV20, conjugate PCV20, 00:00:00 [facility] polysaccharide polysaccharide [id number] conjugate, [id number] conjugate, adjuvant, PF adjuvant, PF influenza, influenza, 2022-05-05 Completed [place] Communi ty high-dose, high-dose, 00:00:00 Hospital Cl[facility] quadrivalent quadrivalent Pneumococcal Pneumococcal 2022-05-05 Completed [place] Com munity conjugate PCV20, conjugate PCV20, 00:00:00 [facility] polysaccharide polysaccharide [id number] conjugate, [id number] conjugate, adjuvant, PF adjuvant, PF influenza, influenza, 2022-05-05 Completed [place] Communi ty high-dose, high-dose, 00:00:00 Hospital Clini cs quadrivalent quadrivalent Pneumococcal Pneumococcal 2022-05-05 Completed [place] Com munity conjugate PCV20, conjugate PCV20, 00:00:00 [facility] polysaccharide polysaccharide [id number] conjugate, [id number] conjugate, adjuvant, PF adjuvant, PF influenza, influenza, 2022-05-05 Completed [facility], [facility]dose, [facility] quad[facility]alent quadrivalent Pneumococcal Pneumococcal 2022-05-05 Completed [facility] conjugate PCV20, conjugate PCV20, 00:00:00 [facility] polysaccharide polysaccharide [id number] conjugate, [id number] conjugate, adjuvant, PF adjuvant, PF influenza, influenza, 2022-05-05 Completed [facility] high-dose, high-dose, 00:00:00 [facility] quadrivalent quadrivalent Pneumococcal Pneumococcal 2022-05-05 Completed [facility] conjugate PCV20, conjugate PCV20, 00:00:00 [facility] polysaccharide polysaccharide [id number] conjugate, [id number] conjugate, adjuvant, PF adjuvant, PF influenza, influenza, 2022-05-05 Completed [facility] high-dose, high-dose, 00:00:00 [facility] quadrivalent quadrivalent Pneumococcal Pneumococcal 2022-05-05 Completed [facility] conjugate PCV20, conjugate PCV20, 00:00:00 [facility] polysaccharide polysaccharide [id number] conjugate, [id number] conjugate, adjuvant, PF adjuvant, PF COVID-19, mRNA, COVID-19, mRNA, 2022-03-19 Completed [facility] LNP-S, PF, 30 LNP-S, PF, 30 00:00:00 [facility] mcg/0.3 mL dose, mcg/0.3 mL dose, everette-sucrose everette-sucrose (Pfizer-[employer]NT[employer]) ([employer]) COVID-19, mRNA, COVID-19, mRNA, 2022-03-19 Completed [facility] LNP-S, PF, 30 LNP-S, PF, 30 00:00:00 [facility] mcg/0.3 mL dose, mcg/0.3 mL dose, everette-sucrose everette-sucrose (Pfizer[employer]) ([employer]) COVID-19, mRNA, COVID-19, mRNA, 2022-03-19 Completed [facility] LNP-S, PF, 30 LNP-S, PF, 30 00:00:00 [facility] mcg/0.3 mL dose, mcg/0.3 mL dose, everette-sucrose everette-sucrose (Pf[employer]) ([employer]) COVID-19, mRNA, COVID-19, mRNA, 2022-03-19 Completed [facility] LNP-S, PF, 30 LNP-S, PF, 30 00:00:00 [facility] mcg/0.3 mL dose, mcg/0.3 mL dose, everette-sucrose everette-sucrose (Pfizer-[employer]NT[employer]) (Pfizer-[employer]) COVID-19, mRNA, COVID-19, mRNA, 2022-03-19 Completed [facility] LNP-S, PF, 30 LNP-S, PF, 30 00:00:00 [facility] mcg/0.3 mL dose, mcg/0.3 mL dose, everette-sucrose everette-sucrose (Pfizer[employer]) (Pfizer-[employer]NT[employer]) COVID-19, mRNA, COVID-19, mRNA, 2022-03-19 Completed [facility] LNP-S, PF, 30 LNP-S, PF, 30 00:00:00 [facility] mcg/0.3 mL dose, mcg/0.3 mL dose, everette-sucrose everette-sucrose (Pfizer-[employer]) (Pfizer-[employer]NT[employer]) COVID-19, mRNA, COVID-19, mRNA, 2022-03-19 Completed [facility] LNP-S, PF, 30 LNP-S, PF, 30 00:00:00 [facility] mcg/0.3 mL dose, mcg/0.3 mL dose, everette-sucrose everette-sucrose (Pf[employer]) (Pfizer-[employer]) COVID-19, mRNA, COVID-19, mRNA, 2022-03-19 Completed [facility] LNP-S, PF, 30 LNP-S, PF, 30 00:00:00 [facility] mcg/0.3 mL dose, mcg/0.3 mL dose, everette-sucrose everette-sucrose (Pf[employer]) (Pfizer-[employer]) COVID-19, mRNA, COVID-19, mRNA, 2021-09-01 Completed [facility] LNP-S, PF, 30 LNP-S, PF, 30 00:00:00 [facility] mcg/0.3 mL dose mcg/0.3 mL dose (Pf[employer]) (Pfizer-[employer]) COVID-19, mRNA, COVID-19, mRNA, 2021-09-01 Completed [facility] LNP-S, PF, 30 LNP-S, PF, 30 00:00:00 [facility] mcg/0.3 mL dose mcg/0.3 mL dose (Pf[employer]) (Pfizer-[employer]NT[employer]) COVID-19, mRNA, COVID-19, mRNA, 2021-09-01 Completed [facility] LNP-S, PF, 30 LNP-S, PF, 30 00:00:00 [facility] mcg/0.3 mL dose mcg/0.3 mL dose (Pf[employer]) (Pfizer-[employer]) COVID-19, mRNA, COVID-19, mRNA, 2021-09-01 Completed [facility] LNP-S, PF, 30 LNP-S, PF, 30 00:00:00 [facility] mcg/0.3 mL dose mcg/0.3 mL dose (Pf[employer]) (Pfizer-BioNTech) COVID-19, mRNA, COVID-19, mRNA, 2021-09-01 Completed [facility] LNP-S, PF, 30 LNP-S, PF, 30 00:00:00 [facility] mcg/0.3 mL dose mcg/0.3 mL dose (Pf[employer]) (Pfizer-BioNTech) COVID-19, mRNA, COVID-19, mRNA, 2021-09-01 Completed [facility] LNP-S, PF, 30 LNP-S, PF, 30 00:00:00 [facility] mcg/0.3 mL dose mcg/0.3 mL dose (Pf[employer]) (Pfizer-BioNTech) COVID-19, mRNA, COVID-19, mRNA, 2021-09-01 Completed [facility] LNP-S, PF, 30 LNP-S, PF, 30 00:00:00 [facility] mcg/0.3 mL dose mcg/0.3 mL dose (Pfizer-[employer]) (Pfizer-BioNTech) COVID-19, mRNA, COVID-19, mRNA, 2021-09-01 Completed [facility] LNP-S, PF, 30 LNP-S, PF, 30 00:00:00 [facility] mcg/0.3 mL dose mcg/0.3 mL dose (Pf[employer]) (Pfizer-BioNTech) COVID-19 COVID-19 2020-11-02 Completed [facility] (SARS-COV-2) (SARS-COV-2) 00:00:[address] [facility]ics vaccine, unspecified vaccine, unspecified COVID-19 COVID-19 2020-11-02 Completed [facility] (SARS-COV-2) (SARS-COV-2) 00:00:[address] [facility] linics vaccine, unspecified vaccine, unspecified COVID-19 COVID-19 2020-11-02 Completed [facility] (SARS-COV-2) (SARS-COV-2) 00:00:[address] [facility] linics vaccine, unspecified vaccine, unspecified COVID-19 COVID-19 2020-11-02 Completed [facility] (SARS-COV-2) (SARS-COV-2) 00:00:[address] [facility] linics vaccine, unspecified vaccine, unspecified COVID-19 COVID-19 2020-11-02 Completed [facility] (SARS-COV-2) (SARS-COV-2) 00:00:[address] [facility] linics vaccine, unspecified vaccine, unspecified COVID-19 COVID-19 2020-11-02 Completed [facility] (SARS-COV-2) (SARS-COV-2) 00:00:[address] [facility] linics vaccine, unspecified vaccine, unspecified COVID-19 COVID-19 2020-11-02 Completed [facility] (SARS-COV-2) (SARS-COV-2) 00:00:[address] [facility] linics vaccine, unspecified vaccine, unspecified COVID-19 COVID-19 2020-11-02 Completed [facility] (SARS-COV-2) (SARS-COV-2) 00:00:[address] [facility] linics vaccine, unspecified vaccine, unspecified COVID-19 COVID-19 2020-11-02 Completed [facility] (SARS-COV-2) (SARS-COV-2) 00:00:[address] [facility] linics vaccine, unspecified vaccine, unspecified COVID-19 COVID-19 2020-11-02 Completed [facility] (SARS-COV-2) (SARS-COV-2) 00:00:[address] [facility] linics vaccine, unspecified vaccine, unspecified COVID-19 COVID-19 2020-11-02 Completed [facility] (SARS-COV-2) (SARS-COV-2) 00:00:[address] [facility] linics vaccine, unspecified vaccine, unspecified COVID-19 COVID-19 2020-11-02 Completed [facility] (SARS-COV-2) (SARS-COV-2) 00:00:[address] [facility] linics vaccine, unspecified vaccine, unspecified COVID-19 COVID-19 2020-11-02 Completed [facility] (SARS-COV-2) (SARS-COV-2) 00:00:[address] [facility] linics vaccine, unspecified vaccine, unspecified COVID-19 COVID-19 2020-11-02 Completed [facility] (SARS-COV-2) (SARS-COV-2) 00:00:[address] [facility] linics vaccine, unspecified vaccine, unspecified COVID-19 COVID-19 2020-11-02 Completed [facility] (SARS-COV-2) (SARS-COV-2) 00:00:[address] [facility] linics vaccine, unspecified vaccine, unspecified COVID-19 COVID-19 2020-11-02 Completed [facility] (SARS-COV-2) (SARS-COV-2) 00:00:[address] [facility] linics vaccine, unspecified vaccine, unspecified COVID-19 COVID-19 2020-11-02 Completed [facility] (SARS-COV-2) (SARS-COV-2) 00:00:[address] [facility] linics vaccine, unspecified vaccine, unspecified COVID-19 COVID-19 2020-11-02 Completed [facility] (SARS-COV-2) (SARS-COV-2) 00:00:[address] [facility] linics vaccine, unspecified vaccine, unspecified COVID-19 COVID-19 2020-11-02 Completed [facility] (SARS-COV-2) (SARS-COV-2) 00:00:[address] [facility] linics vaccine, unspecified vaccine, unspecified COVID-19 COVID-19 2020-11-02 Completed [facility] (SARS-COV-2) (SARS-COV-2) 00:00:[address] [facility] linics vaccine, unspecified vaccine, unspecified COVID-19 COVID-19 2020-11-02 Completed [facility] (SARS-COV-2) (SARS-COV-2) 00:00:[address] [facility] linics vaccine, unspecified vaccine, unspecified SARS-COV-2 COVID-19 2020-10-25 Completed [facility] VACCINE 00:00:00 [facility] SARS-COV-2 COVID-19 2020-10-25 Completed [facility] VACCINE 00:00:00 [facility] COVID-19 COVID-19 2020-09-27 Completed [facility] (SARS-COV-2) (SARS-COV-2) 00:00:[address] [facility] linics vaccine, unspecified vaccine, unspecified COVID-19 COVID-19 2020-09-27 Completed [facility] (SARS-COV-2) (SARS-COV-2) 00:00:[address] [facility] linics vaccine, unspecified vaccine, unspecified COVID-19 COVID-19 2020-09-27 Completed [facility] (SARS-COV-2) (SARS-COV-2) 00:00:[address] [facility] linics vaccine, unspecified vaccine, unspecified COVID-19 COVID-19 2020-09-27 Completed [facility] (SARS-COV-2) (SARS-COV-2) 00:00:[address] [facility] linics vaccine, unspecified vaccine, unspecified COVID-19 COVID-19 2020-09-27 Completed [facility] (SARS-COV-2) (SARS-COV-2) 00:00:[address] [facility] linics vaccine, unspecified vaccine, unspecified COVID-19 COVID-19 2020-09-27 Completed [facility] (SARS-COV-2) (SARS-COV-2) 00:00:[address] [facility] linics vaccine, unspecified vaccine, unspecified COVID-19 COVID-19 2020-09-27 Completed [facility] (SARS-COV-2) (SARS-COV-2) 00:00:[address] [facility] linics vaccine, unspecified vaccine, unspecified COVID-19 COVID-19 2020-09-27 Completed [facility] (SARS-COV-2) (SARS-COV-2) 00:00:[address] [facility] linics vaccine, unspecified vaccine, unspecified COVID-19 COVID-19 2020-09-27 Completed [facility] (SARS-COV-2) (SARS-COV-2) 00:00:[address] [facility] linics vaccine, unspecified vaccine, unspecified COVID-19 COVID-19 2020-09-27 Completed [facility] (SARS-COV-2) (SARS-COV-2) 00:00:[address] [facility] linics vaccine, unspecified vaccine, unspecified COVID-19 COVID-19 2020-09-27 Completed [facility] (SARS-COV-2) (SARS-COV-2) 00:00:[address] [facility] linics vaccine, unspecified vaccine, unspecified COVID-19 COVID-19 2020-09-27 Completed [facility] (SARS-COV-2) (SARS-COV-2) 00:00:[address] [facility] linics vaccine, unspecified vaccine, unspecified COVID-19 COVID-19 2020-09-27 Completed [facility] (SARS-COV-2) (SARS-COV-2) 00:00:[address] [facility] linics vaccine, unspecified vaccine, unspecified COVID-19 COVID-19 2020-09-27 Completed [facility] (SARS-COV-2) (SARS-COV-2) 00:00:[address] [facility] linics vaccine, unspecified vaccine, unspecified COVID-19 COVID-19 2020-09-27 Completed [facility] (SARS-COV-2) (SARS-COV-2) 00:00:[address] [facility] linics vaccine, unspecified vaccine, unspecified COVID-19 COVID-19 2020-09-27 Completed [facility] (SARS-COV-2) (SARS-COV-2) 00:00:[address] [facility] linics vaccine, unspecified vaccine, unspecified COVID-19 COVID-19 2020-09-27 Completed [facility] (SARS-COV-2) (SARS-COV-2) 00:00:00 [facility] vaccine, unspecified vaccine, unspecified COVID-19 COVID-19 2020-09-27 Completed [facility] (SARS-COV-2) (SARS-COV-2) 00:00:00 [facility] C linics vaccine, unspecified vaccine, unspecified COVID-19 COVID-19 2020-09-27 Completed [facility] (SARS-COV-2) (SARS-COV-2) 00:00:00 [facility] C linics vaccine, unspecified vaccine, unspecified COVID-19 COVID-19 2020-09-27 Completed [facility] (SARS-COV-2) (SARS-COV-2) 00:00:00 [facility] C linics vaccine, unspecified vaccine, unspecified COVID-19 COVID-19 2020-09-27 Completed [facility] (SARS-COV-2) (SARS-COV-2) 00:00:[address] [facility] linics vaccine, unspecified vaccine, unspecified SARS-COV-2 COVID-19 2020-09-27 Completed [facility] VACCINE 00:00:00 [facility] SARS-COV-2 COVID-19 2020-09-27 Completed [facility] VACCINE 00[facility]00:00 [facility] influenza, influenza, 2020-05-07 Completed [facility] injectable, injectable, 00:00:00 [facility] quadrivalent quadrivalent influenza, influenza, 2020-05-07 Completed [facility] injectable, injectable, 00:00:00 [facility] quadrivalent quadrivalent influenza, influenza, 2020-05-07 Completed [facility] injectable, injectable, 00:00:00 [facility] quadrivalent quadrivalent influenza, influenza, 2020-05-07 Completed [facility] injectable, injectable, 00:00:00 [facility] quadrivalent quadrivalent influenza, influenza, 2020-05-07 Completed [facility] injectable, injectable, 00:00:00 [facility] quadrivalent quadrivalent influenza, influenza, 2020-05-07 Completed [facility] injectable, injectable, 00:00:00 [facility] quadrivalent quadrivalent influenza, influenza, 2020-05-07 Completed [facility] injectable, injectable, 00:00:00 [facility] quadrivalent quadrivalent influenza, influenza, 2020-05-07 Completed [facility] injectable, injectable, 00:00:00 [facility] quadrivalent quadrivalent influenza, influenza, 2020-05-07 Completed [facility] injectable, injectable, 00:00:00 [facility] quadrivalent quadrivalent influenza, influenza, 2020-05-07 Completed [facility] injectable, injectable, 00:00:00 [facility] quadrivalent quadrivalent influenza, influenza, 2020-05-07 Completed [facility] injectable, injectable, 00:00:00 [facility] quadrivalent quadrivalent influenza, influenza, 2020-05-07 Completed [facility] injectable, injectable, 00:00:00 [facility] quadrivalent quadrivalent influenza, influenza, 2020-05-07 Completed [facility] injectable, injectable, 00:00:00 [facility] quadrivalent quadrivalent influenza, influenza, 2020-05-07 Completed [facility] injectable, injectable, 00:00:00 [facility] quadrivalent quadrivalent influenza, influenza, 2020-05-07 Completed [facility] injectable, injectable, 00:00:00 [facility] quadrivalent quadrivalent influenza, influenza, 2020-05-07 Completed [facility] injectable, injectable, 00:00:00 [facility] quadrivalent quadrivalent influenza, influenza, 2020-05-07 Completed [facility] injectable, injectable, 00:00:00 [facility] quadrivalent quadrivalent influenza, influenza, 2020-05-07 Completed [facility] injectable, injectable, 00:00:00 [facility] quadrivalent quadrivalent influenza, influenza, 2020-05-07 Completed [facility] injectable, injectable, 00:00:00 [facility] quadrivalent quadrivalent influenza, influenza, 2020-05-07 Completed [facility] injectable, injectable, 00:00:00 [facility] quadrivalent quadrivalent influenza, influenza, 2020-05-07 Completed [facility] injectable, injectable, 00:00:00 [facility] quadrivalent quadrivalent influenza, influenza, 2020-05-07 Completed [facility] injectable, injectable, 00:00:00 [facility] quadrivalent quadrivalent influenza, influenza, 2020-05-07 Completed [facility] injectable, injectable, 00:00:00 [facility] quadrivalent quadrivalent influenza, influenza, 2020-05-07 Completed [facility] injectable, injectable, 00:00:00 [facility] quadrivalent quadrivalent influenza, influenza, 2020-05-07 Completed [facility] injectable, injectable, 00:00:00 [facility] quadrivalent quadrivalent influenza, influenza, 2020-05-07 Completed [facility] injectable, injectable, 00:00:00 [facility] quadrivalent quadrivalent influenza, influenza, 2020-05-07 Completed [facility] injectable, injectable, 00:00:00 [facility] quadrivalent quadrivalent influenza, influenza, 2020-05-07 Completed [facility] injectable, injectable, 00:00:00 [facility] quadrivalent quadrivalent influenza, influenza, 2020-05-07 Completed [facility] injectable, injectable, 00:00:00 [facility] quadrivalent quadrivalent influenza, influenza, 2020-05-07 Completed [facility] injectable, injectable, 00:00:00 [facility] quadrivalent quadrivalent influenza, influenza, 2020-05-07 Completed [facility] injectable, injectable, 00:00:00 [facility] quadrivalent quadrivalent influenza, influenza, 2020-05-07 Completed [facility] injectable, injectable, 00:00:00 [facility] quadrivalent quadrivalent influenza, influenza, 2020-05-07 Completed [facility] injectable, injectable, 00:00:00 [facility] quadrivalent quadrivalent Influenza Virus 2020-05-07 Completed [facility] Multi-dose 6[facility] Influenza Virus 2020-05-07 Completed [facility] [place] [facility] 6+ [facility] influenza, influenza, 2019-07-10 Completed [facility] injectable, injectable, 00:00:00 [facility] quadrivalent quadrivalent influenza, influenza, 2019-07-10 Completed [facility] injectable, injectable, 00:00:00 [facility] quadrivalent quadrivalent influenza, influenza, 2019-07-10 Completed [facility] injectable, injectable, 00:00:00 [facility] quadrivalent quadrivalent influenza, influenza, 2019-07-10 Completed [facility] injectable, injectable, 00:00:00 [facility] quadrivalent quadrivalent influenza, influenza, 2019-07-10 Completed [facility] injectable, injectable, 00:00:00 [facility] quadrivalent quadrivalent influenza, influenza, 2019-07-10 Completed [facility] injectable, injectable, 00:00:00 [facility] quadrivalent quadrivalent influenza, influenza, 2019-07-10 Completed [facility] injectable, injectable, 00:00:00 [facility] quadrivalent quadrivalent influenza, influenza, 2019-07-10 Completed [facility] injectable, injectable, 00:00:00 [facility] quadrivalent quadrivalent influenza, influenza, 2019-07-10 Completed [facility] injectable, injectable, 00:00:00 [facility] quadrivalent quadrivalent influenza, influenza, 2019-07-10 Completed [facility] injectable, injectable, 00:00:00 [facility] quadrivalent quadrivalent influenza, influenza, 2019-07-10 Completed [facility] injectable, injectable, 00:00:00 [facility] quadrivalent quadrivalent influenza, influenza, 2019-07-10 Completed [facility] injectable, injectable, 00:00:00 [facility] quadrivalent quadrivalent influenza, influenza, 2019-07-10 Completed [facility] injectable, injectable, 00:00:00 [facility] quadrivalent quadrivalent influenza, influenza, 2019-07-10 Completed [facility] injectable, injectable, 00:00:00 [facility] quadrivalent quadrivalent influenza, influenza, 2019-07-10 Completed [facility] injectable, injectable, 00:00:00 [facility] quadrivalent quadrivalent influenza, influenza, 2019-07-10 Completed [facility] injectable, injectable, 00:00:00 [facility] quadrivalent quadrivalent influenza, influenza, 2019-07-10 Completed [facility] injectable, injectable, 00:00:00 [facility] quadrivalent quadrivalent influenza, influenza, 2019-07-10 Completed [facility] injectable, injectable, 00:00:00 [facility] quadrivalent quadrivalent influenza, influenza, 2019-07-10 Completed [facility] injectable, injectable, 00:00:00 [facility] quadrivalent quadrivalent influenza, influenza, 2019-07-10 Completed [facility] injectable, injectable, 00:00:00 [facility] quadrivalent quadrivalent influenza, influenza, 2019-07-10 Completed [facility] injectable, injectable, 00:00:00 [facility] quadrivalent quadrivalent influenza, influenza, 2019-07-10 Completed [facility] injectable, injectable, 00:00:00 [facility] quadrivalent quadrivalent influenza, influenza, 2019-07-10 Completed [facility] injectable, injectable, 00:00:00 [facility] quadrivalent quadrivalent influenza, influenza, 2019-07-10 Completed [facility] injectable, injectable, 00:00:00 [facility] quadrivalent quadrivalent influenza, influenza, 2019-07-10 Completed [facility] injectable, injectable, 00:00:00 [facility] quadrivalent quadrivalent influenza, influenza, 2019-07-10 Completed [facility] injectable, injectable, 00:00:00 [facility] quadrivalent quadrivalent influenza, influenza, 2019-07-10 Completed [facility] injectable, injectable, 00:00:00 [facility] quadrivalent quadrivalent influenza, influenza, 2019-07-10 Completed [facility] injectable, injectable, 00:00:00 [facility] quadrivalent quadrivalent influenza, influenza, 2019-07-10 Completed [facility] injectable, injectable, 00:00:00 [facility] quadrivalent quadrivalent influenza, influenza, 2019-07-10 Completed [facility] injectable, injectable, 00:00:00 [facility] quadrivalent quadrivalent influenza, influenza, 2019-07-10 Completed [facility] injectable, injectable, 00:00:00 [facility] quadrivalent quadrivalent influenza, influenza, 2019-07-10 Completed [facility] injectable, injectable, 00:00:00 [facility] quadrivalent quadrivalent influenza, influenza, 2019-07-10 Completed [facility] injectable, injectable, 00:00:00 [facility] quadrivalent quadrivalent Influenza Virus 2019-07-10 Completed [facility] [place] [facility] 6[facility] Influenza Virus 2019-07-10 Completed [facility] [place] [facility] 6[facility] Vital Signs Vital Name Observation Time Observation Value Comments Source BP Diastolic 2023-04-01 00:00:00 68 mm[Hg] [facility] s Height 2023-04-01 00:00:00 64 [in_i] [facility] s BP Systolic 2023-04-01 00:00:00 132 mm[Hg] [facility] s BP Diastolic 2023-03-29 00:00:00 68 mm[Hg] [facility] Height 2023-03-29 00:00:00 64 [in_i] [facility] BP Systolic 2023-03-29 00:00:00 120 mm[Hg] [facility] s BP Diastolic 2023-03-18 00:00:00 72 mm[Hg] [facility] Height 2023-03-18 00:00:00 64 [in_i] [facility] BP Systolic 2023-03-18 00:00:00 124 mm[Hg] [facility] BP Diastolic 2023-03-10 00:00:00 74 mm[Hg] [facility] Height 2023-03-10 00:00:00 64 [in_i] [facility] BP Systolic 2023-03-10 00:00:00 120 mm[Hg] [facility] BP Diastolic 2023-02-25 00:00:00 70 mm[Hg] [facility] Height 2023-02-25 00:00:00 64 [in_i] [facility] BMI (Body Mass 2023-02-25 00:00:00 24.4 kg/m2 [facility] BP Systolic 2023-02-25 00:00:00 112 mm[Hg] [facility] Body Weight 2023-02-25 00:00:00 2272 [oz_av] [facility] Height 2022-12-06 00:00:00 64 [in_i] [facility] BP Diastolic 2022-11-23 00:00:00 77 mm[Hg] [facility] Height 2022-11-23 00:00:00 64 [in_i] [facility] BMI (Body Mass 2022-11-23 00:00:00 29.9 kg/m2 [facility]) [facility] BP Systolic 2022-11-23 00:00:00 134 mm[Hg] [facility] Body Weight 2022-11-23 00:00:00 2784 [oz_av] [facility] BP Diastolic 2022-09-14 00:00:00 72 mm[Hg] [facility] Height 2022-09-14 00:00:00 64 [in_i] [facility] BP Systolic 2022-09-14 00:00:00 130 mm[Hg] [facility] BP Diastolic 2022-02-16 00:00:00 70 mm[Hg] [facility] Height 2022-02-16 00:00:00 64 [in_i] [facility] BMI (Body Mass 2022-02-16 00:00:00 29.5 kg/m2 [facility]) [facility] BP Systolic 2022-02-16 00:00:00 108 mm[Hg] [facility] Body Weight 2022-02-16 00:00:00 2752 [oz_av] [facility] Height 2021-11-17 00:00:00 64 [in_i] [facility] Height 2021-11-10 00:00:00 64 [in_i] [facility] Height 2021-11-09 00:00:00 64 [in_i] [facility] Height 2021-11-06 00:00:00 64 [in_i] [facility] Height 2021-11-03 00:00:00 64 [in_i] [facility] Height 2021-11-02 00:00:00 64 [in_i] [facility] s BP Diastolic 2021-10-27 00:00:00 70 mm[Hg] [facility] Height 2021-10-27 00:00:00 64 [in_i] [facility] BP Systolic 2021-10-27 00:00:00 138 mm[Hg] [facility] Height 2021-10-01 00:00:00 64 [in_i] [facility] BP Diastolic 2021-09-01 00:00:00 70 mm[Hg] [facility] Height 2021-09-01 00:00:00 64 [in_i] [facility] s BMI (Body Mass 2021-09-01 00:00:00 28.3 kg/m2 [facility] BP Systolic 2021-09-01 00:00:00 124 mm[Hg] [facility] Body Weight 2021-09-01 00:00:00 2640 [oz_av] [facility] BP Diastolic 2021-07-02 00:00:00 74 mm[Hg] [facility] Height 2021-07-02 00:00:00 64 [in_i] [facility] BMI (Body Mass 2021-07-02 00:00:00 29.4 kg/m2 [facility] BP Systolic 2021-07-02 00:00:00 120 mm[Hg] [facility] Body Weight 2021-07-02 00:00:00 2736 [oz_av] [facility] BP Diastolic 2021-04-13 00:00:00 70 mm[Hg] [facility] Height 2021-04-13 00:00:00 64 [in_i] [facility] BMI (Body Mass 2021-04-13 00:00:00 28.3 kg/m2 [facility]) [facility] BP Systolic 2021-04-13 00:00:00 122 mm[Hg] [facility] Body Weight 2021-04-13 00:00:00 2640 [oz_av] [facility] BP Diastolic 2021-04-06 00:00:00 84 mm[Hg] [facility] Height 2021-04-06 00:00:00 64 [in_i] [facility] BMI (Body Mass 2021-04-06 00:00:00 28.5 kg/m2 [facility] BP Systolic 2021-04-06 00:00:00 138 mm[Hg] [facility] Body Weight 2021-04-06 00:00:00 2656 [oz_av] [facility] BP Diastolic 2021-03-20 00:00:00 88 mm[Hg] [facility] Height 2021-03-20 00:00:00 64 [in_i] [facility] BMI (Body Mass 2021-03-20 00:00:00 28.3 kg/m2 [facility] BP Systolic 2021-03-20 00:00:00 144 mm[Hg] [facility] Body Weight 2021-03-20 00:00:00 2640 [oz_av] [facility] BP Diastolic 2020-12-19 00:00:00 80 mm[Hg] [facility] Height 2020-12-19 00:00:00 64 [in_i] [facility] BMI (Body Mass 2020-12-19 00:00:00 28.5 kg/m2 [facility]) [facility] BP Systolic 2020-12-19 00:00:00 138 mm[Hg] [facility] Body Weight 2020-12-19 00:00:00 2656 [oz_av] [facility] BP Diastolic 2020-11-17 00:00:00 78 mm[Hg] [facility] Height 2020-11-17 00:00:00 64 [in_i] [facility] BP Systolic 2020-11-17 00:00:00 140 mm[Hg] [facility] BP Diastolic 2020-11-10 00:00:00 72 mm[Hg] [facility] Height 2020-11-10 00:00:00 64 [in_i] [facility] BMI (Body Mass 2020-11-10 00:00:00 29.2 kg/m2 [facility]) [facility] BP Systolic 2020-11-10 00:00:00 110 mm[Hg] [facility] Body Weight 2020-11-10 00:00:00 2720 [oz_av] [facility] BP Diastolic 2020-10-27 00:00:00 70 mm[Hg] [facility] Height 2020-10-27 00:00:00 64 [in_i] [facility] BMI (Body Mass 2020-10-27 00:00:00 31.9 kg/m2 [facility]) [facility] BP Systolic 2020-10-27 00:00:00 122 mm[Hg] [facility] Body Weight 2020-10-27 00:00:00 2976 [oz_av] [facility] BP Diastolic 2020-10-17 00:00:00 74 mm[Hg] [facility] Height 2020-10-17 00:00:00 64 [in_i] [facility] BMI (Body Mass 2020-10-17 00:00:00 28.8 kg/m2 [facility]) [facility] BP Systolic 2020-10-17 00:00:00 144 mm[Hg] [facility] Body Weight 2020-10-17 00:00:00 2688 [oz_av] [facility] Height 2020-09-23 00:00:00 64 [in_i] [facility] BP Diastolic 2020-09-08 00:00:00 82 mm[Hg] [facility] Height 2020-09-08 00:00:00 64 [in_i] [facility] BMI (Body Mass 2020-09-08 00:00:00 29.7 kg/m2 [facility]) [facility] BP Systolic 2020-09-08 00:00:00 158 mm[Hg] [facility] Body Weight 2020-09-08 00:00:00 2768 [oz_av] [facility] Body height 2022-05-17 15:02:00 162.6 cm [facility] Body weight 2022-05-17 15:02:00 77.565 kg [facility] BMI 2022-05-17 15:02:00 29.35 kg/m2 [facility] Systolic blood 2021-03-13 20:52:00 132 mm[Hg] Univer sity of pressure [facility] Diastolic blood 2021-03-13 20:52:00 69 mm[Hg] Unive rsity of pressure [facility] Heart rate 2021-03-13 20:52:00 63 /min [facility] Body temperature 2021-03-13 20:52:00 36.94 Noemy [facility] Respiratory rate 2021-03-13 20:52:00 18 /min [facility] Oxygen saturation in 2021-03-13 20:52:00 97 /min [facility] Arterial blood by [facility] Pulse oximetry Branch Body height 2021-03-11 07:30:00 162.6 cm [facility] Body weight 2021-03-11 07:30:00 76 kg bed scale [facility] BMI 2021-03-11 07:30:00 28.76 kg/m2 [facility] Procedures Procedure Date / Time Performing Clinician Source Performed Cholecystectomy 2022-12-14 00:00:00 [facility] ETHMOIDECTOMY, TOTAL, VIA 2022-07-05 16:30:[address] [facility] EXTRANASAL APPROACH Hip Pin for Fixation of 2022-05-18 00:00:00 [facility] Epiphysis [facility] MRI BRAIN W WO CONTRAST 2022-05-17 16:05:47 Marysol Nguyen [facility] AUTHORIZATION FOR RELEASE 2021-12-30 05:01:00 Doctor Unassigned, [facility] MAMMO, diagnostic, 2021-10-26 00:00:00 [facility] mmunity digital, bilateral Hospital Clin ics Tibial Arthroscopy/surgery 2021-09-22 00:00:00 [facility] EXTERNAL PROVIDER RECORDS 2021-03-24 05:01:00 Doctor Unassigned, [facility] POCT GLUCOSE (AUTOMATED) 2021-03-13 16:51:[address] [facility] POCT GLUCOSE (AUTOMATED) 2021-03-13 13:05:[address] [facility] CBC WITHOUT DIFF 2021-03-13 11:24:00 Pamela Terry [facility] BASIC METABOLIC PANEL (NA, 2021-03-13 11:24:00 [facility] [facility] [facility] [place] [facility] [place], CO2, GLUCOSE, BUN, Medica l Branch CREATININE, CA) POCT GLUCOSE (AUTOMATED) 2021-03-13 05:07:00 Josy Syed [facility] POCT GLUCOSE (AUTOMATED) 2021-03-12 23:47:00 Josy Syed [facility] CBC WITHOUT DIFF 2021-03-12 23:30:00 [facility] ([facility]) 2021-03-12 20:23:00 Josy Syed [facility] POCT GLUCOSE (AUTOMATED) 2021-03-12 19:28:00 Josy Syed [facility] IR IVC FILTER INSERTION 2021-03-12 18:43:35 Alvaro Shields [facility] POCT GLUCOSE (AUTOMATED) 2021-03-12 13:12:00 Josy Syed [facility] BASIC METABOLIC PANEL (NA, 2021-03-12 10:25:00 [facility], [facility], CO2, GLUCOSE, BUN, Medica l Branch CREATININE, CA) CBC WITH DIFF 2021-03-12 10:25:00 Harrison [facility] MAGNESIUM 2021-03-12 10:25:00 Harrison [facility] ACTIVATED PARTIAL THRMPLAS 2021-03-12 05:01:00 Alvaro Shields [facility] POCT GLUCOSE (AUTOMATED) 2021-03-12 01:11:00 Josy Syed [facility] POCT GLUCOSE (AUTOMATED) 2021-03-11 21:16:00 Josy Syed [facility] BASIC METABOLIC PANEL (NA, 2021-03-11 20:47:00 Pamela Terry [facility] K, CL, CO2, GLUCOSE, BUN, Medica l Branch CREATININE, CA) ACTIVATED PARTIAL THRMPLAS 2021-03-11 18:53:00 Alvaro Shields [facility] US LOWER EXTREMITY VEIN 2021-03-11 17:18:10 Cornelius, Alvaro [facility] WITH COMPRESSION BILATERAL Medic al Branch (ONLY FOR RULE OUT DVT) CT ABDOMEN PELVIS W 2021-03-11 17:16:28 Alvaro Shields [facility] CONTRAST [facility] POCT GLUCOSE (AUTOMATED) 2021-03-11 16:50:00 Josy Syed [facility] POCT GLUCOSE (AUTOMATED) 2021-03-11 14:31:00 Josy Syed [facility] COVID-19 (ID NOW RAPID 2021-03-11 13:18:00 [facility] TEST[facility]) Medical Branch LAB ONLY COVID 2021-03-11 13:18:00 Alvaro Shields [facility] INTERPRETATION [facility] CBC WITH DIFF 2021-03-11 13:17:00 Alvaro Shields [facility] FREE T4 2021-03-11 13:17:00 Alvaro Shields [facility] PROTHROMBIN TIME / INR 2021-03-11 13:17:00 Alvaro Shields [facility] IRON PANEL 2021-03-11 13:17:00 Alvaro Shields [facility] COMP. METABOLIC PANEL 2021-03-11 13:15:00 Alvaro Shields [facility] ([id number]) Medical Branch MAGNESIUM 2021-03-11 13:15:00 Alvrao Shields [facility] FREE T3 2021-03-11 13:15:00 Cornelius Alvaro [facility] FERRITIN SERUM 2021-03-11 13:15:00 Alvaro Shields [facility] ACTIVATED PARTIAL THRMPLAS 2021-03-11 10:38:00 Alvaro Shields [facility] JASON [facility] HOSPITAL ADMISSION 2021-03-11 05:01:00 Doctor Unassigned, [facility] DEXA 2020-12-19 00:00:00 [facility] MRI, lumbar spine, w/o 2020-10-27 00:00:00 [facility] XR, lumbar spine 2020-10-17 00:00:00 [facility] Hypophysectomy [facility] Plan of Care Planned Activity Planned Date Details Comments Source Future Scheduled Test 2023-04-07 SHINGLES VACCINES (1 [facility] 08:24:00 of 2) [code = SHINGLES VACCINES (1 of 2)] Future Scheduled Test 2023-04-07 65+ PNEUMOCOCCAL [facility] 08:24:00 VACCINE (1 - PCV) [code = 65+ PNEUMOCOCCAL VACCINE (1 - PCV)] Future Scheduled Test 2023-04-07 COVID-19 VACCINE ([address] [place] [address] 08:24:00 Moderna series) [code = COVID-19 VACCINE (4 - Moderna series)] Future Scheduled Test 2023-04-07 INFLUENZA VACCINE [facility] 08:24:00 [code = INFLUENZA VACCINE] Future Scheduled Test 2023-01-07 SHINGLES VACCINES (1 [facility] 16:34:29 of 2) [code = SHINGLES VACCINES (1 of 2)] Future Scheduled Test 2023-01-07 65+ PNEUMOCOCCAL [facility] 16:34:29 VACCINE (1 - PCV) [code = 65+ PNEUMOCOCCAL VACCINE (1 - PCV)] Future Scheduled Test 2023-01-07 COVID-19 VACCINE ([address] [place] [address] 16:34:29 Booster for Moderna series) [code = COVID-19 VACCINE (4 - Booster for Moderna series)] Future Scheduled Test 2023-01-07 INFLUENZA VACCINE [facility] 16:34:29 [code = INFLUENZA VACCINE] Future Scheduled Test 2022-05-[address] [facility] 10:30:12 (1 of 3 - 3-dose series) [code = HEPATITIS B VACCINES (1 of 3 - 3-dose series)] Future Scheduled Test 2022-05-17 SHINGLES VACCINES (1 [facility] 10:30:12 of 2) [code = SHINGLES VACCINES (1 of 2)] Future Scheduled Test 2022-05-17 65+ PNEUMOCOCCAL [facility] 10:30:12 VACCINE (1 - PCV) [code = 65+ PNEUMOCOCCAL VACCINE (1 - PCV)] Future Scheduled Test 2022-05-17 COVID-19 VACCINE ([address] [place] [address] 10:30:12 Booster for Moderna series) [code = COVID-19 VACCINE (4 - Booster for Moderna series)] Future Scheduled Test 2022-05-17 INFLUENZA VACCINE [facility] 10:30:12 [code = INFLUENZA VACCINE] [...] 00:00:00 (1 of 1 - Medical Center [id number] PCV13) [code = PNEUMOCOCCAL 65+ YRS (1 of 1 - [id number] PCV13)] Future Scheduled Test 2003 PNEUMOCOCCAL 65+ YRS [facility] 00:00:00 (1 of 1 - Medical Center [id number] PCV13) [code = PNEUMOCOCCAL 65+ YRS (1 of 1 - [id number] PCV13)] Future Scheduled Test 1988 SHINGLES VACCINES [...] COVID-[address] VACCINE (1)] Future Scheduled Test Improved bilat rib [facility] pain with medication. Hospit al Clinics [code = Improved bilat rib pain with medication.] Future Appointment 2023-05-02 Dany Iraheta, [address] [place] [address] 00:00:00 Mary Bernabe; [address], [place] [address] Instructions [facility] s Encounters Start End Encounter Admission Attending Care Care Encounter Source Date/Time Date/Time Type Type Clinicians Facility Department ID 2023-01-19 [facility] [id number] Common 09:13:00 [id number] [facility] 2022-10-14 Outpatient [facility] [id number] [place] 09:18:02 [id number] [facility] 2022-10-06 Outpatient [facility] [id number] [place] 14:35:41 [id number] [facility] 2022-10-01 Outpatient 3 COLLEEN BAKER [facility] [id number] [facility] 15:41:42 [place] [id number] [facility] [place] 2022-10-01 Outpatient 3 [id number] ENCPL CRD [id number] [facility] 12:55:40 0127 [facility] [place] 2022-09-30 Outpatient 3 COLLEEN BAKER [facility] [id number] [facility] 13:27:29 AV[place] [id number] [facility] [place] 2022-09-30 Outpatient 3 [id number] ENCPL REF [id number] [facility] 06:52:54 0126 [facility] [place] 2022-09-29 Outpatient 3 [id number] ENCPL REF [id number] [facility] 15:07:23 0125 [facility] [place] 2022-09-27 Outpatient [facility] [id number] [place] 12:32:54 [id number] [facility] 2022-06-04 [facility] [id number] Common 08:13:00 [facility] 2022-05-31 [facility] [id number] Common 11:13:01 [facility] 2022-05-24 Outpatient [facility] [id number] Common 11:47:00 [id number] [facility] 2021-10-05 Inpatient SONG Hall, [facility] OUTD [id number] [facility] 11:30:00 Kemar 50 [facility] 2021-09-30 Outpatient Courtney [facility] [id number] Common 11:17:12 Chel 93721 [facility] 2021-09-30 Outpatient [facility] [id number] Common 11:13:55 Dany [id number] [facility] 2021-03-11 Inpatient U KELY, [facility] [id number] Univers 02:03:00 JOSY curtis [facility] 2023-04-01 2023-04-01 Outpatient ERROMAN_R [facility] [id number] [place] 00:00:00 00:00:00 728 Commun i ty [facility] 2023-04-01 2023-04-01 [facility] [place] [facility] [place] [id number] [place] 00:00:00 00:00:00 [facility] DO: [address] [facility] Clinic [place], [place] CLINIC, [address] LEEANNA , Ph. 2023-03-29 2023-03-29 [facility] [place] [facility] [place] [id number] [place] 00:00:00 00:00:00 [facility] DO: [address] [facility] [place], [place] CLINIC, [address] LEEANNA , Ph. 2023-03-18 2023-03-18 [facility] [place] [facility] [place] [id number] [place] 00:00:00 00:00:00 [facility] DO: [address] [facility] [place] [place] CL[place]IC, [address] LEEANNA , Ph. 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 2023-02-25 2023-02-25 Dany [facility] [place] 00:00:00 00:00:00 [facility] DO: [address] Hospit a [facility] G, HOSPITAL Clinic [place], [place] CLINIC, [address] LEEANNA , Ph. [phone] 2023-02-17 2023-02-17 [facility] [id number] [place] 11:30:00 11:53:38 Visit Barry HERRING [id number] [facility] [id number] 1 2023-02-17 2023-02-17 Outpatient [facility] [id number] [place] 11:15:00 11:15:00 [facility] 2023-02-10 2023-02-10 Outpatient [facility] [id number] [place] 11:30:00 11:30:00 [facility] 2023-02-10 2023-02-10 Outpatient [facility] [id number] [place] 11:30:00 11:30:00 [facility] 2023-01-11 2023-01-11 Outpatient ERICKSON_R [facility] [id number] [place] 00:00:00 00:00:00 623 Commun i ty [facility]osp[facility] Clinics 2023-01-11 2023-01-11 Outpatient [facility] [id number] [place] 00:00:00 00:00:00 626 Commun i ty [facility] Clinics 2023-01-11 2023-01-11 Outpatient [facility] [id number] [place] 00:00:00 00:00:00 706 Commun i ty [facility]osp[facility] Clinics 2023-01-11 2023-01-11 Outpatient [facility] [id number] [place] 00:00:00 00:00:00 714 Commun i ty [facility]ospita [facility] Clinics 2023-01-11 2023-01-11 Outpatient [facility] [id number] [place] 00:00:00 00:00:00 725 Commun i ty Hospita [facility] Clinics 2022-12-30 2022-12-30 Office DAGOBERTO Dennis [id number] [place] 10:30:00 11:31:[address] [id number] Health [id number] 1 2022-12-30 2022-12-30 Outpatient [facility] [id number] [place] 10:30:00 10:30:00 Health 2022-12-29 2022-12-29 Outpatient [facility] [id number] [place] 00:00:00 00:00:00 426 Commun i ty Hospita l Clinics 2022-12-06 2022-12-06 [facility] [place] 00:00:00 00:00:00 [facility] DO: [address] Hospit a [facility] l [address], HOSPITAL Clinic s [place], [place] CLINIC, [address] LEEANNA , Ph. 2022-12-02 2022-12-02 Outpatient [facility] [id number] [place] 11:15:00 11:15:00 Health 2022-12-02 2022-12-02 Office DAGOBERTO Dennis [id number] [place] 10:30:00 11:13:[address] [id number] Health [id number] 1 2022-12-02 2022-12-02 Outpatient [facility] [id number] [place] 10:30:00 10:30:00 Health 2022-11-23 2022-11-23 Dany [facility] [place] 00:00:00 00:00:00 [facility] DO: [address] Hospit a [facility] l [address], HOSPITAL Clinic s [place], [place] CLINIC, [address] LEEANNA , Ph. 2022-11-11 2022-11-11 Outpatient [facility] [id number] [place] 00:00:00 00:00:00 321 Commun i ty [facility]ospita [facility] Clinics 2022-11-11 2022-11-11 Outpatient [facility] [id number] [place] 00:00:00 00:00:00 323 Commun i ty Hospita [facility] Clinics 2022-11-11 2022-11-11 Outpatient [facility] [id number] [place] 00:00:00 00:00:00 403 Commun i ty Hospita [facility] Clinics 2022-11-04 2022-11-04 Office DAGOBERTO Dennis [id number] [place] 10:15:00 10:40:[address] [id number] Health [id number] 1 2022-11-04 2022-11-04 Outpatient [facility] [id number] [place] 10:15:00 10:15:00 Health 2022-10-26 2022-10-26 Outpatient [facility] [id number] [place] 00:00:00 00:00:00 221 Commun i ty Hospita [facility] Clinics 2022-10-21 2022-10-21 Office DAGOBERTO [place] 6414 [id number] [place] 10:00:00 11:05:[address] [id number] Health [id number] 1 2022-10-21 2022-10-21 Outpatient [facility] [id number] [place] 10:00:00 10:00:00 Health 2022-10-07 2022-10-21 Inpatient COLLEEN MUNOZ [id number] [facility] 21:37:00 09:00:00 AV[place] [id number] [facility] [place] 2022-10-14 2022-10-14 Office DAGOBERTO [place]uns[place] 6414 [id number] [place] 09:30:00 09:58:24 Visit Ree HERRING [id number] [facility] [id number] 1 2022-09-23 2022-10-05 Inpatient Roz AMARO [facility] [id number] [facility] 04:10:00 16:50:00 SHIFA 2022-09-24 2022-09-24 Outpatient [facility] [id number] [place] 00:00:00 00:00:00 120 Commun i ty [facility]osp[facility] Clinics 2022-09-22 2022-09-22 [facility] [id number] [facility] 00:00:00 23:59:00 ALANNA 2022-09-14 2022-09-14 Outpatient [facility] [id number] [place] 00:00:00 00:00:00 110 Commun i ty Hospita [facility] Clinics 2022-09-14 2022-09-14 Outpatient [facility] [id number] -[id number] [place] 00:00:00 00:00:00 112 [facility] 2022-09-14 2022-09-14 Outpatient ERICKSON_R [facility] [id number] [place] 00:00:00 00:00:00 113 [facility] 2022-09-14 2022-09-14 Dany [facility] [place] [id number] [place] 00:00:00 00:00:00 [facility] DO: [address] [facility] [address] [place], [place], [address] LEEANNA , Ph. 2022-05-17 2022-05-17 Outpatient WENDYON LICENSE OF [facility] [id number] [place] 00:00:00 00:00:[address] 2022-04-15 2022-04-15 Travel 1.2.840.1 1.2.399.167 [id number] Methodi 00:00:00 00:00:[address] 3.430.2.7 0.2.7.3.698 Ho spita .3.218793 084.8 l .8 2022-04-15 2022-04-15 Travel 1.2.840.1 1.2.648.354 5517 [id number] Methodi 00:00:00 00:00:[address] 3.430.2.7 0.2.7.3.698 Ho spita .3.543922 084.8 l .8 2022-04-12 2022-04-12 Outpatient [facility] 8298 - [place] 00:00:00 00:00:00 808 [facility] 2022-04-07 2022-04-07 Travel 1.2.840.1 1.2.355.779 0684 [id number] Methodi 00:00:00 00:00:[address] 3.430.2.7 0.2.7.3.698 Ho spita .3.465276 084.8 l .8 2022-02-16 2022-02-16 Outpatient [facility]SON[facility] 8298 - [place] 02:37:00 02:37:00 614 [facility] 2022-02-16 2022-02-16 [facility] [place] 14 [place] 00:00:00 00:00:00 [facility] DO: [address] [facility] [address] Clinic [place], [place], [address] LEEANNA , Ph. [phone] 2022-02-16 2022-02-16 Outpatient Leeanna [facility] [id number] 00:00:00 00:00:00 Dany o50-77st-z Juanpablo [id number] 2021-12-30 2021-12-30 Orders Doctor MIRA 1.2.840.114 [id number] Univers 00:00:00 00:00:00 Only Unassigned, TAMARA 350.1.13.10 ity of [place] [facility] 4.2.7.2.686 Dominic as [phone] [place] [address] [place] 2021-11-27 2021-11-27 Outpatient ERCHACHOON_R [facility] 8298 - [place] 02:40:00 02:40:00 325 Commun [facility]ics 2021-11-17 2021-11-17 Outpatient ERCHACHOON_R [facility] 8298 - [place] 04:12:00 04:12:00 315 Commun i [facility] Clinics 2021-11-17 2021-11-17 Dany [facility] [place] 00:00:00 00:00:00 [facility] DO: [address] Hospit a [place], [place] CL[place]IC, [address] LEEANNA , Ph. [phone] 2021-11-17 2021-11-17 Outpatient Leeanna [facility] [id number] 00:00:00 00:00:00 Dany 49c-11ec-a Juanpablo [id number] 2021-11-10 2021-11-10 Outpatient ERCHACHOON_R [facility] 8298 - [place] 12:26:00 12:26:00 308 Commun i [facility] Clinics 2021-11-10 2021-11-10 Dany [facility] [place] 00:00:00 00:00:00 [facility] ty DO: [address] [facility] [address] Clinic [place], [place] CL[place]IC, [address] LEEANNA , Ph. 2021-11-10 2021-11-10 Outpatient Leeanna [facility] [id number] 00:00:00 00:00:00 Dany [id number]-[id number] Juanpablo [id number] 2021-11-09 2021-11-09 Outpatient ERCHACHOON_R [facility] [id number] -[id number] [place] 12:10:00 12:10:00 307 Commun i ty [facility] Clinics 2021-11-09 2021-11-09 Outpatient Leeanna [facility] [id number] 00:00:00 00:00:00 Dany p05-82ux-o Juanpablo [id number] 2021-11-09 2021-11-09 Outpatient Leeanna [facility] [id number] 00:00:00 00:00:00 Dany e4s-93rr-9 Juanpablo [id number] 2021-11-09 2021-11-09 Outpatient Leeanna [facility] [id number] 00:00:00 00:00:00 Dany z2x-32gz-2 Juanpablo [id number] 2021-11-09 2021-11-09 Dany [facility] [place] [id number] [place] 00:00:00 00:00:00 [facility] ty DO: [address] [facility] [address] Clinic [place], [place], [address] LEEANNA , Ph. [phone] 2021-11-06 2021-11-06 Outpatient [facility]SON[facility] [id number] -[id number] [place] 12:37:00 12:37:00 304 Commun i ty [facility] Clinics 2021-11-06 2021-11-06 Outpatient Leeanna [facility] [id number] 00:00:00 00:00:00 Dayn be1-11ec-a Juanpablo [id number] 2021-11-06 2021-11-06 Dany [facility] [place] 00:00:00 00:00:00 [facility] - ty DO: [address] Hospit a [facility], HOSPITAL [facility], [address] LEEANNA , Ph. 2021-11-05 2021-11-05 Outpatient [facility]ICKSON_[facility] 8298 - [place] 03:35:00 03:35:00 303 Commun i ty Hospita l [facility] 2021-11-05 2021-11-05 Outpatient Leeanna [facility] [id number] 00:00:00 00:00:00 Dany h16-59ij-i Juanpablo [id number] 2021-11-05 2021-11-05 Dany [facility] [place] 00:00:00 00:00:00 [facility] - ty DO: [address] Hospit a [facility], HOSPITAL [place], [place] CL[place]IC, [address] LEEANNA , Ph. 2021-11-03 2021-11-03 Outpatient [facility]ICKSON_R [facility] 8298 - [place] 12:59:00 12:59:00 301 Commun i ty Hospita l [facility] 2021-11-03 2021-11-03 Dany [facility] [place] 00:00:00 00:00:00 [facility] - ty DO: [address] Hospit a [facility], HOSPITAL [place], [place], [address] LEEANNA , Ph. [phone] 2021-11-03 2021-11-03 Outpatient Leeanna [facility] [id number] [id number] 00:00:00 00:00:00 Dany 989-11ec-b Juanpablo [id number] 2021-11-02 2021-11-02 Outpatient [facility]SON[facility] [id number] -[id number] [place] 03:40:00 03:40:00 228 Commun i ty Hosp[facility] 2021-11-02 2021-11-02 Dany [facility] [place] 00:00:00 00:00:00 [facility] DO: [address] Hospit a [facility] HOSPITAL [facility], [address] LEEANNA , Ph. 2021-11-02 2021-11-02 Outpatient Leeanna [facility] [id number] 00:00:00 00:00:00 Dany 3s3-12er-6 Juanpablo [id number] 2021-10-27 2021-10-27 Outpatient [facility] 8298 - [place] 04:29:00 04:29:00 222 Commun i ty Hosp[facility] 2021-10-27 2021-10-27 Dany [facility] [place] 00:00:00 00:00:00 [facility] DO: [address] [facility] [address] LEEANNA , Ph. 2021-10-27 2021-10-27 Outpatient Leeanna [facility] [id number] 00:00:00 00:00:00 Dany 425-11ec-b Juanpablo [id number] 2021-10-01 2021-10-01 Outpatient [facility]SON_[facility] 8298 - [place] 06:53:00 06:53:00 127 Commun i ty [facility]osp[facility] Clinics 2021-10-01 2021-10-01 Dany [facility] [place] 00:00:00 00:00:00 [facility] DO: [address] Hospit a [facility], [place], [place], [address] LEEANNA , Ph. 2021-10-01 2021-10-01 Outpatient Leeanna [facility] [id number] 00:00:00 00:00:00 Dany fcc-11ec-9 Juanpablo [id number] 2021-09-01 2021-09-01 Outpatient [facility]SON[facility] [id number] [place] 10:43:00 10:43:00 228 Commun i ty Hospita l [facility] 2021-09-01 2021-09-01 Dany [facility] [place] [id number] [place] 00:00:00 00:00:00 [facility] DO: [address] Hospit a [facility], HOSPITAL [place], [place], [address] LEEANNA , Ph. [phone] 2021-09-01 2021-09-01 Outpatient Leeanna [facility] [id number] 00:00:00 00:00:00 Dany 071-11ec-9 Juanpablo [id number] 2021-07-02 2021-07-02 Outpatient [facility]ICKSON_R [facility] [id number] [place] 10:49:00 10:49:00 028 Commun i ty Hospita [facility] Clinics 2021-07-02 2021-07-02 Outpatient Leeanna [facility] [id number] 00:00:00 00:00:00 Dany 7fd-11ec-a Juanpablo [id number] 2021-07-02 2021-07-02 Dany [facility] [place] 00:00:00 00:00:00 [facility] - ty DO: [address] [facility] Clinic s [place], [place] CL[place]IC, [address] LEEANNA , Ph. [phone] 2021-06-23 2021-06-23 Outpatient [facility]SON[facility] [id number] [place] 01:20:00 01:20:00 019 Commun i ty Hospita [facility] Clinics 2021-05-19 2021-05-19 Outpatient [facility]ICKSON_R [facility] 8298 - [place] 01:20:00 01:20:00 914 Commun i ty Hospita [facility] Clinics 2021-05-05 2021-05-05 Lynne Nino 1.2.840.1 [id number] Univers 00:00:00 00:00:00 Management 65151.1.1 i ty of 3.104.2.7 [place] .3.121731 Medica l .8 Branch 2021-04-28 2021-04-28 Hospital Jose Eduardo Valdovinos 1.2.840.7 [id number] [facility] 07:31:12 23:59:00 Encounter D[facility]z Clinic 37001.1.1 ity of 3.104.2.7 [place] .3.117262 Medica l .8 Branch 2021-04-13 2021-04-13 Outpatient [facility]ICKSON_R [facility] [id number] [place] 11:47:00 11:47:00 809 Commun i ty Hospita [facility] Clinics 2021-04-13 2021-04-13 Outpatient Leeanna [facility] [id number] 00:00:00 00:00:00 Dany 926-11eb-8 Juanpablo [id number] 2021-04-13 2021-04-13 Dany [facility] [place] 09 [place] 00:00:00 00:00:00 [facility], [facility] - ty DO: [address] Hospit [facility] [place], [place] CL[place]IC, [address] LEEANNA , Ph. 2021-04-07 2021-04-07 Outpatient ERICKSON_R [facility] [id number] -[id number] [place] 12:33:00 12:33:00 803 Commun i ty Hospita [facility] Clinics 2021-04-06 2021-04-06 Outpatient [facility]ICKSON_R [facility] [id number] -[id number] [place] 04:34:00 04:34:00 802 Commun i ty Hospita [facility] Clinics 2021-04-06 2021-04-06 Outpatient Leeanna, [facility] [id number] 00:00:00 00:00:00 Dany 9n6-55am-a Juanpablo [id number] 2021-04-06 2021-04-06 Dany [facility] [place] 00:00:00 00:00:00 [facility] DO: [address] [facility] [place], [place] CL[place]IC, [address] LEEANNA , Ph. 2021-04-01 2021-04-01 Outpatient ERICKSON_R [facility] [id number] [place] 01:49:00 01:49:00 728 Commun i ty Hospita l [facility] 2021-03-24 2021-03-24 Orders Doctor 1.2.840.7 [id number] Univers 00:00:00 00:00:00 Only Unassigned, 94285.1.1 ity of [place] 3.104.2.7 [place] .3.285984 Medica l 8 Branch 2021-03-24 2021-03-24 Orders Doctor MIRA 1.2.840.114 [id number] 00:00:00 00:00:00 Only Unassigned, TAMARA 350.1.13.10 [place] [facility] 4.2.7.2.686 [id number] 009 2021-03-20 2021-03-20 Outpatient ERCHACHOON_R [facility] [id number] -[id number] [place] 10:54:00 10:54:00 716 Commun i ty Hospita [facility] Clinics 2021-03-20 2021-03-20 Outpatient Leeanna [facility] [id number] 00:00:00 00:00:00 Dany 643-11eb-b Juanpablo [id number] 2021-03-20 2021-03-20 [facility] [place] 16 [place] 00:00:00 00:00:00 [facility] Comm uni [facility] DO: [address] Hospit a [facility] l [address], HOSPITAL Clinic s [place], [facility], [address] LEEANNA , Ph. [phone] 2021-03-18 2021-03-18 Telephone Harrison, 1.2.840.5 [id number] Univers 00:00:00 00:00:00 Pamela 81032.1.1 ity of 3.104.2.7 [place] .3.721750 Medica l .8 Branch 2021-03-18 2021-03-18 Telephone Harrison [facility] 1.2.049.305 [id number] 00:00:00 00:00:00 Pamela BENJAMIN 350.1.13.10 CARE 4.2.7.2.686 PAVILLION [id number] 2021-03-16 2021-03-16 Transition Lucero, 1.2.840.9 [id number] Univers 00:00:00 00:00:00 of Care Chelsey 59656.1.1 ity of 3.104.2.7 [place] .3.280092 Medica l .8 Branch 2021-03-16 2021-03-16 Transition Doyle Barker 1.2.840.114 [id number] 00:00:00 00:00:00 of Care Chelsey Del Angel 350.1.13.10 Fate 4.2.7.2.686 [id number] 403 2021-03-11 2021-03-13 [facility], 1.2.840.6 [id number] Univers 02:03:00 17:36:00 Encounter Josy 15409.1.1 it y of 3.104.2.7 [place] .3.348900 Medica l .8 Branch 2021-03-11 2021-03-13 [facility] Dacia Syed 1.2.840.114 [id number] 02:03:00 17:36:00 Encounter Josy Tamara 350.1.13.10 [facility] 4.2.7.2.686 [id number] 100 2021-03-12 2021-03-12 Case Zach, 1.2.840.4 [id number] Univers 00:00:00 00:00:00 Management Avtar 94479.1.1 i ty of 3.104.2.7 [place] .3.358128 Medica l .8 Branch 2021-03-12 2021-03-12 Case Zach LONNIE 1.2.479.486 [id number] 00:00:00 00:00:00 Management Avtar Glass [facility] 350.1.13.10 [facility] 4.2.7.2.686 [id number] 2021-02-25 2021-02-25 Outpatient ERROMAN_Mikki [facility] [id number] -[id number] [place] 01:36:00 01:36:00 623 Commun i ty Hospita l Clinics 2021-02-20 2021-02-20 Orders Doctor 1.2.840.9 [id number] Univers 00:00:00 00:00:00 Only Unassigned, 45370.1.1 ity of [place] 3.104.2.7 [place] .3.008486 Medica l .8 Branch 2021-02-20 2021-02-20 Orders Doctor MEYERS 1.2.840.114 [id number] 00:00:00 00:00:00 Only Unassigned, TAMARA 350.1.13.10 [place] [facility] 4.2.7.2.686 [id number] 009 2021-01-22 2021-01-22 Outpatient ERICKSON_R [facility] [id number] -[id number] [place] 01:03:00 01:03:00 520 Commun i ty Hospita l Clinics 2021-01-21 2021-01-21 Orders Doctor 1.2.840.9 [id number] Univers 00:00:00 00:00:00 Only Unassigned, 24333.1.1 ity of [place] 3.104.2.7 [place] .3.372753 Medica l .8 Branch 2021-01-21 2021-01-21 Orders Doctor MIRA 1.2.840.114 [id number] 00:00:00 00:00:00 Only Unassigned, TAMARA 350.1.13.10 [place] [facility] 4.2.7.2.686 [id number] 009 2021-01-08 2021-01-08 Orders Doctor 1.2.840.7 [id number] Univers 00:00:00 00:00:00 Only Unassigned, 58121.1.1 ity of [place] 3.104.2.7 [place] .3.965386 Medica l .8 Branch 2021-01-08 2021-01-08 Orders Doctor MIRA 1.2.840.114 [id number] 00:00:00 00:00:00 Only Unassigned, TAMARA 350.1.13.10 [place] [facility]OS[facility]ITAL 4.2.7.2.686 [id number] 009 2021-01-05 2021-01-05 Transition Kadeem, 1.2.840.4 [id number] Univers 00:00:00 00:00:00 of Care Todd Bates 34671.1.1 it y of 3.104.2.7 [place] .3.819684 Medica l .8 Branch 2021-01-05 2021-01-05 Transition KadeemDoyle 1.2.840.114 [id number] [id number] 00:00:00 00:00:00 of Care Todd A Del Angel 350.1.13.10 Fate 4.2.7.2.686 [id number] 403 2020-12-21 2021-01-02 [facility] [id number] Univers 05:34:00 18:49:00 RAINE ity of [place] [facility] 2020-12-21 2021-01-02 [facility] Latoya Duff 1.2.840.9 [id number] Univers 05:34:00 18:49:00 Encounter Fabrizio Samuels 51713.1.1 ity of [place] Matt Augie 3.104.2.7 [facility] .3.841057 [facility] . Branch 2020-12-21 2021-01-02 [facility] Latoya Pederson 1.2.8 40.114 [id number] 05:34:00 18:49:00 Encounter Fabrizio Samuels [place] 350.1.13.10 Matt [place] [facility] 4.2.7.2.686 Himanshuamy Raine Zimmer [id number] 100 2020-12-27 2020-12-27 Anesthesia Jai Espinal 1.2.840 .3 [id number] Univers 15:47:00 16:43:00 Event De, Chase 04428.1.1 it y of 3.104.2.7 [place] .3.009076 Medica l .8 Branch 2020-12-27 2020-12-27 Surgery Merwat, 1.2.840.4 [id number] 540 Univers 14:55:00 16:17:00 Felipe 11891.1.1 ity of [place] 3.104.2.7 [place] .3.359910 Medica l .8 Branch 2020-12-27 2020-12-27 Surgery Dacia 1.2.840.114 [id number] 14:55:00 16:17:00 [place] 350.1.13.10 [facility] 4.2.7.2.686 [id number] 103 2020-12-22 2020-12-22 Anesthesia Jay, 1.2.840.9 [id number] Univers 12:32:00 13:04:00 Event Bela 13288.1.1 ity of 3.104.2.7 [place] .3.262762 Medica l .8 Branch 2020-12-22 2020-12-22 Surgery Sharma, 1.2.840.7 [id number] [id number] 212 Univers 10:40:00 11:14:00 Rio 35897.1.1 ity of 3.104.2.7 [place] .3.507223 Medica l .8 Branch 2020-12-22 2020-12-22 Surgery [facility] 1.2.251.746 2200 3212 10:40:00 11:14:00 ICAL 350.1.13.10 SCIENCES 4.2.7.2.686 BLDG [id number] 020 2020-12-21 2020-12-21 Orders Watson, 1.2.840.4 [id number] Univers 00:00:00 00:00:00 Only Aidan 81047.1.1 ity of 3.104.2.7 [place] .3.485169 Medica l .8 Branch 2020-12-19 2020-12-19 Outpatient ERICKSON_R [facility] [id number] -[id number] [place] 11:02:00 11:02:00 416 Commun i ty Hospita l [facility] 2020-12-19 2020-12-19 Outpatient Leeanna [facility] [id number] 00:00:00 00:00:00 Dany 021-72e8-4 Boutte [id number] 2020-12-19 2020-12-19 Dany [facility] [place] 16 [place] 00:00:00 00:00:00 [facility] DO: [address] Hospit a [facility] l [address], HOSPITAL Clinic s [place], [place] CL[place]IC, [address] LEEANNA , Ph. [phone] 2020-12-18 2020-12-18 Outpatient ERICKSON_R [facility] [id number] -[id number] [place] 01:01:00 01:01:00 415 Commun i ty Hospita l Clinics 2020-11-17 2020-11-17 Outpatient ERICKSON_R [facility] 8298 - [place] 04:44:00 04:44:00 315 Commun i ty Hospita l Clinics 2020-11-17 2020-11-17 Dany [facility] [place] 15 [place] 00:00:00 00:00:00 [facility] DO: [address] Hospit a [facility], [place], [place], [address] LEEANNA , Ph. [phone] 2020-11-17 2020-11-17 Outpatient Iraheta, [facility] [id number] 00:00:00 00:00:00 Dany 021-7ff5-4 Juanpablo [id number] 2020-11-10 2020-11-10 Outpatient ERICKSON_R [facility] [id number] -[id number] [place] 11:28:00 11:28:00 308 Commun i ty Hospita l [facility] 2020-11-10 2020-11-10 Dany [facility] [place] 08 [place] 00:00:00 00:00:00 [facility] DO: [address] Hospit a [facility], [facility], [address] LEEANNA , Ph. 2020-11-10 2020-11-10 Outpatient Leaenna, [facility] [id number] [id number] 00:00:00 00:00:00 Dany 021-8ece-4 Juanpablo [id number] 2020-10-30 2020-10-30 Outpatient ERICKSON_R [facility] [id number] -[id number] [place] 09:13:00 09:13:00 225 Commun i ty Hospita l Clinics 2020-10-27 2020-10-27 Outpatient ERICKSON_R [facility] [id number] [place] 02:56:00 02:56:00 222 Commun i ty Hospita l Clinics 2020-10-27 2020-10-27 Dany [facility] [place] 00:00:00 00:00:00 [facility] ty DO: [address] Hospit [facility] [place], [place] CL[place]IC, [address] LEEANNA , Ph. 2020-10-27 2020-10-27 Outpatient Leeanna [facility] [id number] 00:00:00 00:00:00 Dany 021-64c2-4 Juanpablo [id number] 2020-10-27 2020-10-27 Outpatient Leeanna [facility] [id number] 00:00:00 00:00:00 Dany 021-8ef7-4 Juanpablo [id number] 2020-10-21 2020-10-21 Outpatient ERICKSON_R [facility] [id number] [place] 11:44:00 11:44:00 216 Commun i ty Hospita l Clinics 2020-10-17 2020-10-17 Outpatient ERICKSON_R [facility] [id number] -[id number] [place] 11:23:00 11:23:00 212 Commun i ty Hospita l Clinics 2020-10-17 2020-10-17 Outpatient Leeanna [facility] [id number] 00:00:00 00:00:00 Dany 021-5973-4 Juanpablo [id number] 2020-10-17 2020-10-17 Dany [facility] [place] 00:00:00 00:00:00 [facility] ty DO: [address] [facility] [place] CL[place], [address] LEEANNA , Ph. [phone] 2020-10-13 2020-10-13 Outpatient ERICKSON_R [facility] [id number] [place] 11:56:00 11:56:00 208 Commun i ty Hospita l Clinics 2020-10-13 2020-10-13 Dany [facility] [place] 08 [place] 00:00:00 00:00:00 [facility] - ty DO: [address] Hospit [facility] [place], [place], [address] LEEANNA , Ph. 2020-10-06 2020-10-06 Outpatient ERICKSON_R [facility] [id number] [place] 01:03:00 01:03:00 201 [facility] 2020-09-30 2020-09-30 Outpatient ERICKSON_R [facility] [id number] [place] 02:16:00 02:16:00 126 [facility] 2020-09-26 2020-09-26 Outpatient ERICKSON_R [facility] [id number] [place] 09:12:00 09:12:00 122 [facility] 2020-09-23 2020-09-23 Outpatient ERICKSON_R [facility] [id number] [place] 09:29:00 09:29:00 119 [facility] 2020-09-23 2020-09-23 Outpatient Iraheta, [facility] [id number] 00:00:00 00:00:00 Dany [id number] Juanpablo [id number] 2020-09-23 2020-09-23 Dany [facility] [place] - [place] 19 [place] 00:00:00 00:00:00 [facility] - ty DO: [address] [facility] [place] [place] CL[place]IC, [address] LEEANNA , Ph. 2020-09-12 2020-09-12 Outpatient ERICKSON_R [facility] [id number] [place] 12:08:00 12:08:00 108 [facility] 2020-09-11 2020-09-11 Outpatient ERICKSON_R [facility] [id number] [place] 05:56:00 05:56:00 107 [facility] 2020-09-08 2020-09-08 Outpatient ERICKSON_R [facility] [id number] [place] 10:49:00 10:49:00 104 [facility] 2020-09-08 2020-09-08 Outpatient Leeanna [facility] [id number] 00:00:00 00:00:00 Dany [id number] Bout[place] [id number] 2020-09-08 2020-09-08 Dany [facility] [place] 00:00:00 00:00:00 [facility] DO: [address] [facility], HOSPITAL Clinic s [place], [place] CLINIC, [address] LEEANNA , Ph. [phone] 2020-09-01 2020-09-01 Outpatient ERROMAN_R [facility] 8298 - [place] 01:03:00 01:03:00 228 [facility] Results Test Description Test Time Test Comments [...] Blood (test code = Blood) Negative Specific Fallon (test code = Specific Fallon) 1.020 Ketone (test code = Ketone) Negative Bilirubin (test code = Bilirubin) Small Glucose (test code = Glucose) Negative Appearance (test code = Appearance) Clear Color (test code = Color) Dark Yellow [facility] - Urine 2021-11-09 10:32:00 Test Item Value Reference Range Interpretation Comments Leukocytes (test code = Negative Leukocytes) Nitrite (test code = Nitrite) negative Urobilinogen (test code = .2 Urobilinogen) Protein (test code = Protein) 30 pH (test code = pH) 6.0 Blood (test code = Blood) Negative Specific Fallon (test code = 1.020 Specific Fallon) Ketone (test code = Ketone) Negative Bilirubin (test code = Bilirubin) Small Glucose (test code = Glucose) Negative Appearance (test code = Clear Appearance) Color (test code = Color) Dark Yellow [facility] 2021-10-30 00:00:00 Test Item Value Reference Range Interpretation Comments Bacteria identified in proteus mirabilis A Urine by Culture (test code = 630-4) Other Antibiotic comment [Susceptibility] (test code = 86747-1) [facility] 2021-10-30 00:00:00 Test Item Value Reference Range Interpretation Comments Bacteria identified in proteus mirabilis A Urine by Culture (test code = 630-4) Other Antibiotic comment [Susceptibility] (test code = 08705-9) [facility] 2021-10-30 00:00:00 Test Item Value Reference Range Interpretation Comments Bacteria identified in proteus mirabilis A Urine by Culture (test code = 630-4) Other Antibiotic comment [Susceptibility] (test code = 98883-0) [facility] 2021-10-30 00:00:00 Test Item Value Reference Range Interpretation Comments Bacteria identified in proteus mirabilis A Urine by Culture (test code = 630-4) Other Antibiotic comment [Susceptibility] (test code = 32720-5) [facility] 2021-10-30 00:00:00 Test Item Value Reference Range Interpretation Comments Bacteria identified in proteus mirabilis A Urine by Culture (test code = 630-4) Other Antibiotic comment [Susceptibility] (test code = 88650-6) [facility] 2021-10-30 00:00:00 Test Item Value Reference Range Interpretation Comments Bacteria identified in proteus mirabilis A Urine by Culture (test code = 630-4) Other Antibiotic comment [Susceptibility] (test code = 30699-0) [facility] 2021-10-30 00:00:00 Test Item Value Reference Range Interpretation Comments Bacteria identified in proteus mirabilis A Urine by Culture (test code = 630-4) Other Antibiotic comment [Susceptibility] (test code = 44162-0) [facility] 2021-10-30 00:00:00 Test Item Value Reference Range Interpretation Comments Bacteria identified in proteus mirabilis A Urine by Culture (test code = 630-4) Other Antibiotic comment [Susceptibility] (test code = 71805-3) [facility] 2021-10-30 00:00:00 Test Item Value Reference Range Interpretation Comments Bacteria identified in proteus mirabilis A Urine by Culture (test code = 630-4) Other Antibiotic comment [Susceptibility] (test code = 71771-7) [facility] (dip[facility] - Urine 2021-10-27 15:11:00 Test Item Value Reference Range Interpretation Comments Leukocytes (test code = Trace Leukocytes) Nitrite (test code = Nitrite) negative Urobilinogen (test code = .2 Urobilinogen) Protein (test code = Protein) 100 pH (test code = pH) 8.5 Blood (test code = Blood) Negative Specific Fallon (test code = 1.000 Specific Fallon) Ketone (test code = Ketone) Negative Bilirubin (test code = Bilirubin) Small Glucose (test code = Glucose) Negative Appearance (test code = Cloudy Appearance) Color (test code = Color) Dark Yellow [facility] ([facility]) panel - Urine 2021-10-27 15:11:00 Test Item Value Reference Range Interpretation Comments Leukocytes (test code = Trace Leukocytes) Nitrite (test code = Nitrite) negative Urobilinogen (test code = .2 Urobilinogen) Protein (test code = Protein) 100 pH (test code = pH) 8.5 Blood (test code = Blood) Negative Specific Fallon (test code = 1.000 Specific Fallon) Ketone (test code = Ketone) Negative Bilirubin (test code = Bilirubin) Small Glucose (test code = Glucose) Negative Appearance (test code = Cloudy Appearance) Color (test code = Color) Dark Yellow [facility] ([facility]) panel - Urine 2021-10-27 15:11:00 Test Item Value Reference Range Interpretation Comments Leukocytes (test code = Trace Leukocytes) Nitrite (test code = Nitrite) negative Urobilinogen (test code = .2 Urobilinogen) Protein (test code = Protein) 100 pH (test code = pH) 8.5 Blood (test code = Blood) Negative Specific Fallon (test code = 1.000 Specific Fallon) Ketone (test code = Ketone) Negative Bilirubin (test code = Bilirubin) Small Glucose (test code = Glucose) Negative Appearance (test code = Cloudy Appearance) Color (test code = Color) Dark Yellow [facility]) [facility] - Urine 2021-10-27 15:11:00 Test Item Value Reference Range Interpretation Comments Leukocytes (test code = Trace Leukocytes) Nitrite (test code = Nitrite) negative Urobilinogen (test code = .2 Urobilinogen) Protein (test code = Protein) 100 pH (test code = pH) 8.5 Blood (test code = Blood) Negative Specific Fallon (test code = 1.000 Specific Fallon) Ketone (test code = Ketone) Negative Bilirubin (test code = Bilirubin) Small Glucose (test code = Glucose) Negative Appearance (test code = Cloudy Appearance) Color (test code = Color) Dark Yellow [facility]) panel - Urine 2021-10-27 15:11:00 Test Item Value Reference Range Interpretation Comments Leukocytes (test code = Trace Leukocytes) Nitrite (test code = Nitrite) negative Urobilinogen (test code = .2 Urobilinogen) Protein (test code = Protein) 100 pH (test code = pH) 8.5 Blood (test code = Blood) Negative Specific Fallon (test code = 1.000 Specific Fallon) Ketone (test code = Ketone) Negative Bilirubin (test code = Bilirubin) Small Glucose (test code = Glucose) Negative Appearance (test code = Cloudy Appearance) Color (test code = Color) Dark Yellow [facility]) panel - Urine 2021-10-27 15:11:00 Test Item Value Reference Range Interpretation Comments Leukocytes (test code = Trace Leukocytes) Nitrite (test code = Nitrite) negative Urobilinogen (test code = .2 Urobilinogen) Protein (test code = Protein) 100 pH (test code = pH) 8.5 Blood (test code = Blood) Negative Specific Fallon (test code = 1.000 Specific Fallon) Ketone (test code = Ketone) Negative Bilirubin (test code = Bilirubin) Small Glucose (test code = Glucose) Negative Appearance (test code = Cloudy Appearance) Color (test code = Color) Dark Yellow [facility]) [facility] - Urine 2021-10-27 15:11:00 Test Item Value Reference Range Interpretation Comments Leukocytes (test code = Trace Leukocytes) Nitrite (test code = Nitrite) negative Urobilinogen (test code = .2 Urobilinogen) Protein (test code = Protein) 100 pH (test code = pH) 8.5 Blood (test code = Blood) Negative Specific Fallon (test code = 1.000 Specific Fallon) Ketone (test code = Ketone) Negative Bilirubin (test code = Bilirubin) Small Glucose (test code = Glucose) Negative Appearance (test code = Cloudy Appearance) Color (test code = Color) Dark Yellow [facility] - Urine 2021-10-27 15:11:00 Test Item Value Reference Range Interpretation Comments Leukocytes (test code = Trace Leukocytes) Nitrite (test code = Nitrite) negative Urobilinogen (test code = .2 Urobilinogen) Protein (test code = Protein) 100 pH (test code = pH) 8.5 Blood (test code = Blood) Negative Specific Fallon (test code = 1.000 Specific Fallon) Ketone (test code = Ketone) Negative Bilirubin (test code = Bilirubin) Small Glucose (test code = Glucose) Negative Appearance (test code = Cloudy Appearance) Color (test code = Color) Dark Yellow [facility]) panel - Urine 2021-10-27 15:11:00 Test Item Value Reference Range Interpretation Comments Leukocytes (test code = Trace Leukocytes) Nitrite (test code = Nitrite) negative Urobilinogen (test code = .2 Urobilinogen) Protein (test code = Protein) 100 pH (test code = pH) 8.5 Blood (test code = Blood) Negative Specific Fallon (test code = 1.000 Specific Fallon) Ketone (test code = Ketone) Negative Bilirubin (test code = Bilirubin) Small Glucose (test code = Glucose) Negative Appearance (test code = Cloudy Appearance) Color (test code = Color) Dark Yellow [facility] 2021-10-05 00:00:00 Test Item Value Reference Range Interpretation Comments Bacteria identified in Urine escherichia coli A by Culture (test code = 630-4) Other Antibiotic comment [Susceptibility] (test code = 89066-3) [facility]) [facility] - Urine 2021-10-01 17:52:00 Test Item Value Reference Range Interpretation Comments Leukocytes (test code = Moderate Leukocytes) Nitrite (test code = Nitrite) negative Urobilinogen (test code = .2 Urobilinogen) Protein (test code = Protein) 30 pH (test code = pH) 6.0 Blood (test code = Blood) Negative Specific Fallon (test code = 1.020 Specific Fallon) Ketone (test code = Ketone) Small Bilirubin (test code = Bilirubin) Negative Glucose (test code = Glucose) Negative Appearance (test code = Cloudy Appearance) Color (test code = Color) Dark Yellow [facility] ClinicsPOCT GLUCOSE (AUTOMATED)2021-03-13 16:52:34 Test Item Value Reference Range Interpretation Comments POCT GLU (test code = 0310239899) 152 mg/dL 70-110 H Lab Interpretation (test code = Abnormal 43768-1) [facility] (NA, K, CL, CO2, GLUCOSE, BUN, CREATININE, CA)2021-03-13 12:03:23 Test Item Value Reference Range Interpretation Comments NA (test code = 139 mmol/L 135-145 7828838526) K (test code = 3.5 mmol/L 3.5-5.0 8252323264) CL (test code = 112 mmol/L 98-108 H 4808640669) CO2 TOTAL (test code = 27 mmol/L 23-31 3168619955) AGAP (test code = <1 2-16 L 4304502184) BUN (test code = 22 mg/dL 7-23 1463016964) GLUCOSE (test code = 125 mg/dL 70-110 H 4023417322) CREATININE (test code = 0.64 mg/dL 0.50-1.04 2354307466) CALCIUM (test code = 7.9 mg/dL 8.6-10.6 L 4514615913) eGFR (test code = mL/min/1.73m2 4579403622) INDRA (test code = INDRA) Association of [...] tests). Lab Interpretation Abnormal (test code = 26632-2) [facility] WITHOUT [id number] 11:39:33 Test Item Value Reference Range Interpretation Comments WBC (test code = 6690-2) See_Comment L [A utomated message] The system [employer] generated this result transmit komal reference range : 4.30 - 11.10 10*3/?L. The reference range was not used to interpret this result as normal/abnormal . RBC (test code = 789-8) See_Comment L [Au tomated message] The system [employer] generated this result transmit komal reference range [...] See_Comment L [Au tomated message] The system [employer] generated this result transmit komal reference range : 166 - 358 10*3/?L. The reference range was not used to interpret this result as normal/abnormal . MPV (test code = 11.1 fL 9.5-12.9 22051-2) RDW-CV (test code = 16.7 % 12.0-15.5 H 788-0) RDW-SD (test code = 56.3 fL 39.0-49.9 H 52535-7) NRBC x10^3 (test code = <0.01 See_Comment [Au tomated message] 9405152162) The system [employer] generated this result transmit komal reference range : 10*3/?L. The reference range was not used to interpret this result as normal/abnormal . NRBC/100 WBC (test code See_Comment [Au tomated message] = 5407016446) The system [facility] generated this result transmit komal reference range : 0.0 - 10.0 /100 WBC s. The reference r ming was not used to interpret this result as normal/abnormal . IPF % (test code = 5143704026) Lab Interpretation (test Abnormal code = 16438-0) [facility] 11:03:56 Test Item Value Reference Range Interpretation Comments MAGNESIUM (test code = 3344703737) 2.6 mg/dL 1.7-2.4 H Lab Interpretation (test code = Abnormal 33883-6) [facility] WITH [id number] 10:36:35 Test Item Value Reference Range Interpretation [...] (test code = 56.6 fL 39.0-49.9 H 16730-6) RDW-CV (test code = 16.4 % 12.0-15.5 H 788-0) PLT (test code = See_Comment L [Automated 777-3) message] The sy stem which generated this result transmitted reference range : 166 - 358 10*3/ ?L. The reference r ming was not used to interpret this result as normal/abnormal . MPV (test code = 11.6 fL 9.5-12.9 96612-7) NRBC/100 WBC (test See_Comment [Automat ed code = 5202843200) message] The system which generated this result transmitted reference range : 0.0 - 10.0 /100 WBCs. The refer ence range was not u sed to interpret th is result as normal/abnormal . NRBC x10^3 (test code <0.01 See_Comment [Auto mated = 8548477265) message] The s ystem which generated this result transmitted reference range : 10*3/?L. The reference range was not used to interpret this result as normal/abnormal . GRAN MAT (NEUT) % 77.8 % (test code = 770-8) IMM GRAN % (test code 0.30 % = 7787395019) LYMPH % (test code = 16.7 % 736-9) MONO % (test code = 4.4 % 5905-5) EOS % (test code = 0.5 % 713-8) BASO % (test code = 0.3 % 706-2) GRAN MAT x10^3(ANC) 2.84 10*3/uL 1.88-7.09 (test code = 3118998417) IMM GRAN x10^3 (test <0.03 0.00-0.06 code = 4367058539) LYMPH x10^3 (test code 0.61 10*3/uL 1.32-3.29 L = 731-0) MONO x10^3 (test code 0.16 10*3/uL 0.33-0.92 L = 742-7) EOS x10^3 (test code = <0.03 0.03-0.39 L 711-2) BASO x10^3 (test code <0.03 0.01-0.07 = 704-7) Lab Interpretation Abnormal (test code = 87261-0) [facility] AustinaPTT (for use with Heparin Drip)2021-03-12 05:32:09 Test Item Value Reference Range Interpretation Comments APTT Patient (test code >150 See_Comment HH [Au tomated message] = 7553-2) The system [employer] generated this result transmitted ref erence range: 26 - 36 Seconds. The reference range was not used to int erpret this result as normal/abnormal . Lab Interpretation (test Abnormal code = 44950-9) [facility] [id number] 15:29:50 Test Item Value Reference Range Interpretation Comments IRON (test code = 1692207000) 53 ug/dL 50-160 TIBC (test code = 7275037046) 329 ug/dL 250-410 % FE SAT (test code = 0823092334) 16 % 20-50 L Lab Interpretation (test code = Abnormal 23664-5) [facility] [id number] 15:14:27 Test Item Value Reference Range Interpretation Comments FREE T4 (test code = See_Comment [Autom ated message] 6690396339) The system [employer] generated this result transmitted ref erence range: 0.78 - 2 .20 ng/dL:. The ref erence range was not u sed to interpret this result as normal/abnor mal. Lab Interpretation (test Normal code = 25157-4) [facility] AustinFERRITIN [id number] 14:53:03 Test Item Value Reference Range Interpretation Comments FERRITIN (test code = 27.3 ng/mL 11.0-264.0 6480027956) INDRA (test code = INDRA) Biotin has been reported to cause a negative bias, interpret results relative to patient's use of biotin. Lab Interpretation (test Normal code = 08183-6) [facility] AustinFREE [id number] 14:31:57 Test Item Value Reference Range Interpretation Comments FREE T3 (test code = 7058430590) 1.71 pg/mL 2.77-5.27 L Lab Interpretation (test code = Abnormal 95294-5) [facility] AustinCOMP. METABOLIC PANEL (82559)2021-03-11 14:26:43 Test Item Value Reference Range Interpretation Comments NA (test code = 141 mmol/L 135-145 7828077521) K (test code = 2.9 mmol/L 3.5-5.0 LL 4589895013) CL (test code = 106 mmol/L 98-108 6071726713) CO2 TOTAL (test code = 33 mmol/L 23-31 H 1305330018) AGAP (test code = 2-16 9621896324) BUN (test code = 14 mg/dL 7-23 1686472008) GLUCOSE (test code = 63 mg/dL 70-110 L 9288575284) CREATININE (test code = 0.53 mg/dL 0.50-1.04 9141825195) TOTAL BILI (test code = 0.5 mg/dL 0.1-1.3 5110438417) CALCIUM (test code = 7.9 mg/dL 8.6-10.6 L 7684545035) T PROTEIN (test code = 5.8 g/dL 6.3-8.2 L 7282867439) ALBUMIN (test code = 2.9 g/dL 3.5-5.0 L 1278710350) ALK PHOS (test code = 33 U/L 34-122 L 0707757332) ALTv (test code = 8 U/L 5-35 1742-6) AST(SGOT) (test code = 26 U/L 13-40 6650802954) eGFR (test code = mL/min/1.73m2 9015307335) INDRA (test code = INDRA) Association of [...] tests). Lab Interpretation Abnormal (test code = 21524-5) [facility] AustinPROTHROMBIN TIME / [id number] 13:40:32 Test Item Value Reference Range Interpretation Comments PROTIME PATIENT (test See_Comment H [Auto mated message] code = 5964-2) The system [employer] generated this result transmitted ref erence range: 10.1 - 1 2.6 Seconds. The reference range was not used to int erpret this result as normal/abnormal . INR (test code = 6301-6) Nor mal INR <1.1; Warfarin Therap eutic range 2.0 to 3. 0 or 2.5 to 3.5, dep ending upon the indica tions. Lab Interpretation (test Abnormal code = 53318-7) [facility] AustinUrinalysis macro (dipstick) panel - Urine 2020-10-17 10:17:00 Test Item Value Reference Range Interpretation Comments Leukocytes (test code = Leukocytes) Negative Nitrite (test code = Nitrite) negative Urobilinogen (test code = .2 Urobilinogen) Protein (test code = Protein) Trace pH (test code = pH) 8.0 Blood (test code = Blood) Negative Specific Fallon (test code = 1.010 Specific Fallon) Ketone (test code = Ketone) Negative Bilirubin (test code = Bilirubin) Negative Glucose (test code = Glucose) Negative [facility] - Urine 2020-10-17 10:17:00 Test Item Value Reference Range Interpretation Comments Leukocytes (test code = Leukocytes) Negative Nitrite (test code = Nitrite) negative Urobilinogen (test code = .2 Urobilinogen) Protein (test code = Protein) Trace pH (test code = pH) 8.0 Blood (test code = Blood) Negative Specific Fallon (test code = 1.010 Specific Fallon) Ketone (test code = Ketone) Negative Bilirubin (test code = Bilirubin) Negative Glucose (test code = Glucose) Negative [facility] - Urine 2020-10-17 10:17:00 Test Item Value Reference Range Interpretation Comments Leukocytes (test code = Leukocytes) Negative Nitrite (test code = Nitrite) negative Urobilinogen (test code = .2 Urobilinogen) Protein (test code = Protein) Trace pH (test code = pH) 8.0 Blood (test code = Blood) Negative Specific Fallon (test code = 1.010 Specific Fallon) Ketone (test code = Ketone) Negative Bilirubin (test code = Bilirubin) Negative Glucose (test code = Glucose) Negative [facility] - Urine 2020-10-13 10:40:00 Test Item Value Reference Range Interpretation Comments Leukocytes (test code = Leukocytes) Negative Nitrite (test code = Nitrite) negative Urobilinogen (test code = 1 Urobilinogen) Protein (test code = Protein) 30 pH (test code = pH) 7.0 Blood (test code = Blood) Negative Specific Fallon (test code = 1.010 Specific Fallon) Ketone (test code = Ketone) Negative Bilirubin (test code = Bilirubin) Negative Glucose (test code = Glucose) Negative Appearance (test code = Appearance) Clear Color (test code = Color) [facility]rine 2020-10-13 10:40:00 Test Item Value Reference Range Interpretation Comments Leukocytes (test code = Leukocytes) Negative Nitrite (test code = Nitrite) negative Urobilinogen (test code = 1 Urobilinogen) Protein (test code = Protein) 30 pH (test code = pH) 7.0 Blood (test code = Blood) Negative Specific Fallon (test code = 1.010 Specific Fallon) Ketone (test code = Ketone) Negative Bilirubin (test code = Bilirubin) Negative Glucose (test code = Glucose) Negative Appearance (test code = Appearance) Clear Color (test code = Color) [facility] (dipstick) panel - Urine 2020-10-13 10:40:00 Test Item Value Reference Range Interpretation Comments Leukocytes (test code = Leukocytes) Negative Nitrite (test code = Nitrite) negative Urobilinogen (test code = 1 Urobilinogen) Protein (test code = Protein) 30 pH (test code = pH) 7.0 Blood (test code = Blood) Negative Specific Fallon (test code = 1.010 Specific Fallon) Ketone (test code = Ketone) Negative Bilirubin (test code = Bilirubin) Negative Glucose (test code = Glucose) Negative Appearance (test code = Appearance) Clear Color (test code = Color) [facility] (dipstick) panel - Urine 2020-10-13 10:40:00 Test Item Value Reference Range Interpretation Comments Leukocytes (test code = Leukocytes) Negative Nitrite (test code = Nitrite) negative Urobilinogen (test code = 1 Urobilinogen) Protein (test code = Protein) 30 pH (test code = pH) 7.0 Blood (test code = Blood) Negative Specific Fallon (test code = 1.010 Specific Fallon) Ketone (test code = Ketone) Negative Bilirubin (test code = Bilirubin) Negative Glucose (test code = Glucose) Negative Appearance (test code = Appearance) Clear Color (test code = Color) [facility]-CoV-2 (COVID-19) Ag [Presence] in Respiratory specimen by Rapid [id number] 08:28:00 Test Item Value Reference Range Interpretation Comments SARS CoV 2 (test code = SARS CoV 2) negative [facility] ClinicsURINALYSIS W/ [id number] 14:50:00 Test Item Value Reference Range Interpretation [...] 1584) SOURCE(BEAKER) (test code = Urine, Voided 9192) [id number] 13:11:00 Test Item Value Reference Range Interpretation Comments LIPASE (BEAKER) (test code = 749) 45 U/L 8-78 BASIC METABOLIC [id number] 13:11:00 Test Item Value Reference Range Interpretation [...] APPLICABLE FOR DIALYSIS PATIEN TS. HEPATIC FUNCTION [id number] 13:11:00 Test Item Value Reference Range Interpretation [...] (test code = 14 U/L 6-55 347) [id number] 13:02:00 Test Item Value Reference Range Interpretation [...] mechanical heart valves.CBC W/PLT COUNT & AUTO [id number] 12:56:00 Test Item Value Reference Range Interpretation [...] PERCENT (BEAKER) (test code = 2801) TISSUE [id number] 13:06:00Surgical Pathology Report Case: [id number] Authorizing Provider: Luiz Villa Collected: 03/14/2018 1115 Ordering Location: [facility] Endoscopy Received: 03/14/2018 1351 Services Pathologist: Mara Sears MD Specimens: A) - Polyp, Duodenum B) - Stomach, Antrum, bx C) - Biopsy, Gastric, gastric body D) - Biopsy, Esophagus, random THIS ADDENDUM IS ISSUED TO REPORT THE RESULT OF IMMUNOHISTOCHEMICAL STUDY FOR HELICOBACTER PYLORI OM SPECIMEN B: - NEGATIVE CPT CODE: [id number] all ctronically signed by Mara Barboza MD on 03/20/2018 [...] ENDOSCOPIC BIOPSY: - OXYNTIC MUCOSA WITH NO PAT HOLOGIC ALTERATION - NO HELICOBACTER PYLORI-LIKE ORGANISMS SEEN ON WARTHIN- STARRY STAIN - NO INTESTINAL METAPLASIA, DYSPLASIA OR MALIGNANCY NOTED D. ESOPHAGUS, RANDOM,ENDOSCOPIC BIOPSY - MULTIPLE FRAGMENTS OF SQUAMOUS MUCOSA WITH REACTIVE CHANGES - NO FEATURES OF REFLUX ESOPHAGITIS ARE SEEN - NO FEATURES OF EOSINOPHILIC ESOPHAGITIS NOTED - NO COLUMNAR MUCOSA PRESENT - NO DYSPLASIA OR MALIGNANCY SEEN Signing Pathologist Direct Phone Line: [phone] signed by Mara Barboza MD on 03/17/2018 at 10:35 [id number] X 4; [id number] X 2A. Polyp, duodenum. B. Stomach antrum. C. Biopsy, gastric, description gastric body. D. Biopsy, esophagus, description randomPart A. Received in formalin,labeled "polyp, duodenum", is a 0.5 x 0.4 x 0.2 cm polypoid shaped brown-chavez fragment of soft tissue. The base is inked green, and the polyp is bisected and submitted entirely in one cassette (A1).PartB. Received in formalin labeled "stomach, antrum", is a 0.5 x 0.2 x 0.2 cm aggregate of irregular shaped brown-chavez fragment of soft tissue that is submitted in toto in one cassette (B1).Part C. Received in formalin labeled "biopsy, gastric" with description of "gastric body", are is a 0.4 x 0.2 x 0.2 c m aggregate of brown-chavez irregular shaped fragment of soft tissue. The specimen is submitted in totoin one cassette (C1).Part D. Received in formalin labeled "biopsy, esophagus", with description of "random", is a 0.5 x 0.2 x 0.2 cm aggregate of brown-chavez to white irregular shaped fragment of soft tissue that is submitted in toto in one cassette (D1). MH/ewThe following special studies were performed on this case and the interpretation is incorporated in the diagnostic report above:AMBER [id number] 12:41:00 Test Item Value Reference Range Interpretation Comments POC-GLUCOSE METER 75 mg/dL 70-110 TESTED AT [place] [address] ([place]) (test code = [facility] [address] 1538) BLOOD [id number] 06:00:00 Test Item Value Reference Range Interpretation Comments CULTURE (BEAKER) (test No growth in 5 days code = 1095) BLOOD [id number] 06:00:00 Test Item Value Reference Range Interpretation Comments CULTURE (BEAKER) (test No growth in 5 days code = 1095) POCT-GLUCOSE [id number] 12:32:00 Test Item Value Reference Range Interpretation Comments POC-GLUCOSE METER 217 mg/dL 70-110 H TESTED AT [place] [address] ([facility]) (test code = [facility] 1538) [address] POCT-GLUCOSE [id number] 08:36:00 Test Item Value Reference Range Interpretation Comments POC-GLUCOSE METER 92 mg/dL 70-110 TESTED AT [place] [address] ([facility]) (test code = [facility] [address] 1538) COMPREHENSIVE METABOLIC [id number] 04:59:00 Test Item Value Reference Range Interpretation [...] S NOT APPLICABLE FOR DIALYSIS PATIEN TS. [id number] 04:50:00 Test Item Value Reference Range Interpretation Comments MAGNESIUM (BEAKER) (test code = 1.7 mg/dL 1.6-2.6 627) PROTHROMBIN [id number] 04:35:00 Test Item Value Reference Range Interpretation [...] mechanical heart valves.CBC W/PLT COUNT & AUTO [id number] 04:24:00 Test Item Value Reference Range Interpretation [...] EOSINOPHILS ABSOLUTE COUNT 0.06 K/ L 0.04-0.36 ([facility]) (test code = 416) BASOPHILS ABSOLUTE COUNT ([facility]) 0.02 K/ L 0.01-0.08 (test code = 417) IMMATURE GRANULOCYTES-RELATIVE 1 % 0-1 PERCENT ([facility]) (test code = 2801) POCT-GLUCOSE [id number] 22:13:00 Test Item Value Reference Range Interpretation Comments POC-GLUCOSE METER 194 mg/dL 70-110 H TESTED AT [place] [address] ([facility]) (test code = [facility] 1538) [address] POCT-GLUCOSE [id number] 18:14:00 Test Item Value Reference Range Interpretation Comments POC-GLUCOSE METER 195 mg/dL 70-110 H TESTED AT [place] [address] ([facility]) (test code = [facility] 1538) [address] POCT-GLUCOSE [id number] 12:20:00 Test Item Value Reference Range Interpretation Comments POC-GLUCOSE METER 224 mg/dL 70-110 H TESTED AT [place] [address] ([facility]) (test code = [facility] 1538) [address] [id number] 08:55:00 Test Item Value Reference Range Interpretation Comments LIPASE ([facility]) (test code = 749) 471 U/L 8-78 H POCT-GLUCOSE [id number] 08:12:00 Test Item Value Reference Range Interpretation Comments POC-GLUCOSE METER 128 mg/dL 70-110 H TESTED AT [place] [address] ([facility]) (test code = [facility] 1538) [address]100 [id number] 04:12:00 Test Item Value Reference Range Interpretation Comments T3 TOTAL (BEAKER) (test code = 656) 41 ng/dL 48-159 L T3, [id number] 04:11:00 Test Item Value Reference Range Interpretation Comments T3 FREE ([facility]) (test code = 908) 1.31 pg/mL 1.71-3.71 L COMPREHENSIVE METABOLIC [id number] 04:01:00 Test Item Value Reference Range Interpretation Comments TOTAL PROTEIN 4.8 gm/dL 6.0-8.3 L (AKER) (test code = 770) ALBUMIN ([facility]) 2.8 g/dL 3.5-5.0 L (test code = [...] S NOT APPLICABLE FOR DIALYSIS PATIEN TS. [id number] 03:54:00 Test Item Value Reference Range Interpretation Comments MAGNESIUM (BEAKER) (test code = 1.7 mg/dL 1.6-2.6 627) PROTHROMBIN [id number] 03:53:00 Test Item Value Reference Range Interpretation [...] mechanical heart valves.CBC W/PLT COUNT & AUTO [id number] 03:46:00 Test Item Value Reference Range Interpretation [...] PERCENT (BEAKER) (test code = 2801) POCT-GLUCOSE [id number] 22:34:00 Test Item Value Reference Range Interpretation Comments POC-GLUCOSE METER 252 mg/dL 70-[address] [facility] 67[address] (BEAKER) (test code = [facility] [place] 1538) [address] [id number] 19:36:00 Test Item Value Reference Range Interpretation Comments MAGNESIUM (BEAKER) (test code = 1.6 mg/dL 1.6-2.6 627) BASIC METABOLIC [id number] 19:36:00 Test Item Value Reference Range Interpretation [...] NOT APPLICABLE FOR DIALYSIS PATIEN TS. URINE [id number] 11:51:00 Test Item Value Reference Range Interpretation Comments CULTURE (BEAKER) (test code = 1095) No growth POCT-GLUCOSE [id number] 11:42:00 Test Item Value Reference Range Interpretation Comments POC-GLUCOSE METER 205 mg/dL 70-[address] [facility] [address] (BEAKER) (test code = [facility] 1538) [address] POCT-GLUCOSE [id number] 08:08:00 Test Item Value Reference Range Interpretation Comments POC-GLUCOSE METER 119 mg/dL 70-110 H TESTED AT [place] [address] ([facility]) (test code = [facility] Kaye [facility] 1538) [address] C. DIFFICILE GDH [id number] 07:40:00 Test Item Value Reference Range Interpretation Comments CDT TOXIN (test code Negative Negative = [id number]) CDT GDH ANTIGEN Positive Negative A C. difficile present but (test code = toxin not detec komal. [id number]) Indicates colon ization with non-toxige lizbeth strain or level of tox in below detectable leve ls. No need for enteri c isolation. Leonela tment is rarely needed ( only when strong clinical suspicion for Clostridium difficile infection) Testing performed by [employer] Rapid Cassette Assay. For GDH, published sensitivity of the assay is 98.7% compared to cytotoxicity testing. For Toxin AB, published sensitivity is 87.8% and specificity 99.4% compared to cytotoxicity testing.Verification of kit performance was done by the [facility] prior to clinical use.POCT-GLUCOSE [id number] 06:37:00 Test Item Value Reference Range Interpretation Comments POC-GLUCOSE METER 141 mg/dL 70-110 H TESTED AT [place] [address] ([facility]) (test code = [facility] Mikki [facility] 1538) [address] COMPREHENSIVE METABOLIC [id number] 04:48:00 Test Item Value Reference Range Interpretation [...] NOT APPLICABLE FOR DIALYSIS PATIEN TS. PROTHROMBIN [id number] 04:40:00 Test Item Value Reference Range Interpretation Comments PROTIME (BEAKER) (test code = 23.8 seconds 11.7-14.7 H 759) INR (BEAKER) (test code = 370) 2.1 <=5.9 RECOMMENDED COUMADIN/WARFARIN INR THERAPY RANGESSTANDARD DOSE: 2.0 - 3.0 Includes: PROPHYLAXIS for venous thrombosis, systemic embolization; TREATMENT for venous thrombosis and/or pulmonary embolus.HIGH RISK: Target INR is 2.5-3.5 for patients with mechanical heart valves.While on warfarin.[id number] 04:29:00 Test Item Value Reference Range Interpretation Comments MAGNESIUM (BEAKER) (test code = 2.0 mg/dL 1.6-2.6 627) CBC W/PLT COUNT & AUTO [id number] 04:11:00 Test Item Value Reference Range Interpretation [...] PERCENT (BEAKER) (test code = 2801) POCT-GLUCOSE [id number] 22:19:00 Test Item Value Reference Range Interpretation Comments POC-GLUCOSE METER 266 mg/dL 70-[address] [facility] [address] (BEAKER) (test code = MICAH CHANG 1538) [address] [id number] 17:54:00 Test Item Value Reference Range Interpretation Comments POTASSIUM (BEAKER) (test code = 4.2 meq/L 3.5-5.1 379) [id number] 17:23:00 Test Item Value Reference Range Interpretation Comments MAGNESIUM (BEAKER) (test code = 1.7 mg/dL 1.6-2.6 627) POCT-GLUCOSE [id number] 12:41:00 Test Item Value Reference Range Interpretation Comments POC-GLUCOSE METER 111 mg/dL 70-[address] [facility] [address] (BEAKER) (test code = [facility] [place] 1538) [address] [id number] 12:40:00 Test Item Value Reference Range Interpretation Comments POTASSIUM (BEAKER) (test code = 3.5 meq/L 3.5-5.1 379) POCT-GLUCOSE [id number] 10:05:00 Test Item Value Reference Range Interpretation Comments POC-GLUCOSE METER 94 mg/dL 70-[address] [facility] [address] (BEAKER) (test code = [place] [address] 1538) COMPREHENSIVE METABOLIC [id number] 05:47:00 Test Item Value Reference Range Interpretation [...] S NOT APPLICABLE FOR DIALYSIS PATIEN TS. [id number] 05:44:00 Test Item Value Reference Range Interpretation Comments MAGNESIUM (BEAKER) (test code = 2.0 mg/dL 1.6-2.6 627) PROTHROMBIN [id number] 05:37:00 Test Item Value Reference Range Interpretation Comments PROTIME (BEAKER) (test code = 24.0 seconds 11.7-14.7 H 759) INR (BEAKER) (test code = 370) 2.2 <=5.9 RECOMMENDED COUMADIN/WARFARIN INR THERAPY RANGESSTANDARD DOSE: 2.0 - 3.0 Includes: PROPHYLAXIS for venous thrombosis, systemic embolization; TREATMENT for venous thrombosis and/or pulmonary embolus.HIGH RISK: Target INR is 2.5-3.5 for patients with mechanical heart valves.PROTHROMBIN [id number] 05:36:00 Test Item Value Reference Range Interpretation [...] valves.While on warfarin.CBC W/PLT COUNT & AUTO [id number] 05:35:00 Test Item Value Reference Range Interpretation [...] PERCENT (BEAKER) (test code = 2805) POCT-GLUCOSE [id number] 23:56:00 Test Item Value Reference Range Interpretation Comments POC-GLUCOSE METER 105 mg/dL 70-[address] [facility] [address] (BEAKER) (test code = [facility] [place] 1538) [address] TROPONIN [id number] 13:02:00 Test Item Value Reference Range Interpretation [...] 0-100 H (test code = 700) POCT-GLUCOSE [id number] 12:18:00 Test Item Value Reference Range Interpretation Comments POC-GLUCOSE METER 175 mg/dL 70-[address] [facility] [address] (MATTHEW) (test code = [facility] [place] 1538) [address] U/S, ABDOMINAL, [id number] 10:23:00Abdomen limited area? Add comment if clarification [...] Coffey MDReport Verified Date/Time: 01/14/2018 10:23:02 Reading Location:[address] Ortho Consult Reading Room T4, [id number] 08:42:00 Test Item Value Reference Range Interpretation Comments FREE T4 ([facility]ANNER) (test code = 655) 0.83 ng/dL 0.70-1.48 POCT-GLUCOSE [id number] 08:37:00 Test Item Value Reference Range Interpretation Comments POC-GLUCOSE METER 161 mg/dL 70-[address] [facility] [address] ([facility]) (test code = [facility] 1538) [address] TSH/FREE T4 IF [id number] 08:05:00 Test Item Value Reference Range Interpretation Comments THYROID STIMULATING HORMONE 0.02 uIU/mL 0.35-4.94 L (BANNER) (test code = 772) VITAMIN B12 AND [id number] 07:42:00 Test Item Value Reference Range Interpretation Comments VITAMIN B12 (BEAKER) (test code = 1276 pg/mL 213-816 H 774) FOLATE (BANNER) (test code = 362) 8.8 ng/mL >=7.0 LIPID [id number] 07:14:00 Test Item Value Reference Range Interpretation Comments TRIGLYCERIDES (ShiftgigAKER) (test code = 171 mg/dL 540) CHOLESTEROL (BEAKER) (test code = 123 mg/dL 631) HDL CHOLESTEROL (AKER) (test code 25 mg/dL = 976) LDL CHOLESTEROL CALCULATED (BANNER) 64 mg/dL (test code = 633) Triglyceride [...] acute neurological disease, and persistent tachyarrhythmia.URINALYSIS W/ [id number] 06:35:00 Test Item Value Reference Range Interpretation [...] 517) SOURCE(BEAKER) (test code = Urine, [place] 1645) [id number] 06:07:00 Test Item Value Reference Range Interpretation Comments MAGNESIUM (BEAKER) (test code = 1.8 mg/dL 1.6-2.6 627) [id number] 05:32:00 Test Item Value Reference Range Interpretation Comments MAGNESIUM (BEAKER) (test code = 2.5 mg/dL 1.6-2.6 627) COMPREHENSIVE METABOLIC [id number] 05:32:00 Test Item Value Reference Range Interpretation [...] NOT APPLICABLE FOR DIALYSIS PATIEN TS. PROTHROMBIN [id number] 05:10:00 Test Item Value Reference Range Interpretation [...] mechanical heart valves.CBC W/PLT COUNT & AUTO [id number] 05:03:00 Test Item Value Reference Range Interpretation [...] 0-1 PERCENT (BEAKER) (test code = 2801) [id number] 02:52:00 Test Item Value Reference Range Interpretation Comments PROCALCITONIN (BEAKER) (test code 0.41 ng/mL <0.05 H = 3036) SEPSIS RISK (ng/mL)Low: 0.05-0.50Intermediate: 0.51-2.00High: >=2.01LACTIC ACID, VENOUS, WHOLE [id number] 02:06:00 Test Item Value Reference Range Interpretation Comments LACTATE BLOOD VENOUS 1.3 mmol/L 0.5-2.2 Specime n slightly (2) (BEAKER) (test hemolyzed code = 2872) Effective 01/07/2016: Units/Reference Range ChangeNew: 0.5-2.2 mmol/L Previous: 5- 20 mg/dLCOMPREHENSIVE METABOLIC [id number] 02:06:00 Test Item Value Reference Range Interpretation [...] S NOT APPLICABLE FOR DIALYSIS PATIEN TS. [id number] 02:04:00 Test Item Value Reference Range Interpretation Comments LIPASE (BEAKER) (test code = 749) 730 U/L 8-78 H [id number] 02:04:00 Test Item Value Reference Range Interpretation Comments AMYLASE (BEAKER) (test code = 349) 226 U/L 25-125 H PROTHROMBIN [id number] 01:45:00 Test Item Value Reference Range Interpretation Comments PROTIME (BEAKER) (test code = 23.9 seconds 11.7-14.7 H 759) INR (BEAKER) (test code = 370) 2.1 <=5.9 RECOMMENDED COUMADIN/WARFARIN INR THERAPY RANGESSTANDARD DOSE: 2.0 - 3.0 Includes: PROPHYLAXIS for venous thrombosis, systemic embolization; TREATMENT for venous thrombosis and/or pulmonary embolus.HIGH RISK: Target INR is 2.5-3.5 for patients with mechanical heart valves.[id number] 01:45:00 Test Item Value Reference Range Interpretation Comments PARTIAL THROMBOPLASTIN TIME 32.4 seconds 22.5-36.0 (BEAKER) (test code = 760) CBC W/PLT COUNT & AUTO [id number] 01:38:00 Test Item Value Reference Range Interpretation [...] % 0-1 PERCENT (BEAKER) (test code = 4942)
[2023-04-08 07:43] LABS: Absolute Lymphocytes (CBC) 1.6 K/uL (0.7-4.9); Hematocrit 33.4 % (36.0-45.0); Lymphocytes % 29.5 % (15.3-44.8); MCV 97.2 fL (80-100); MPV 8.4 fL (7.6-11.3); RBC Red Blood Cell Count 3.44 M/uL (3.86-4.86)
--- NOTE | 2023-04-08 07:56 | RAD REPORT ---
EXAM DESCRIPTION: RAD - Shoulder Left 2 View - 04/08/2023 7:19 am CLINICAL HISTORY: PAIN COMPARISON: No comparisons FINDINGS: Prominent diffuse osteopenia. Moderately severe glenohumeral osteoarthritis. Mild AC joint osteoarthritis. No fracture or dislocation.
[2023-04-08 08:05] LABS: Bilirubin Total 0.5 mg/dL (0.2-1.0); Potassium 3.1 mEq/L (3.5-5.1); Protein, Total 6.6 g/dL (6.4-8.2); Troponin High Sensitivity 6.3 pg/mL (<58.9)
--- NOTE | 2023-04-08 08:32 | EDPHYS ---
Physician Documentation [facility] Name: Emelia Payan Age: 82 yrs Sex: Female : 1940 Arrival Date: 04/08/2023 Time: 06:55 Bed 3 Private MD: ED Physician Jaxon De La Rosa HPI: 04/08 07:13 This 82 yrs old Female presents to ER via EMS with complaints of Arm Pain. rt 07:13 Patient presents to the ED with a left shoulder pain starting this morning. Patient rt states this occurred after she lowered herself into her wheelchair. Denies any other trauma. She stated the pain started at the shoulder around the biceps region, described as a numbness and burning sensation and that her arm went numb at that time. She states that it subsequently resolved. Symptoms are moderate in severity, mild currently, no other aggravating or elevating factors.. Historical: - Allergies: 07:06 Bactrim; kd3 07:06 Cipro; kd3 07:06 Xarelto; kd3 07:06 Zosyn; kd3 - PMHx: 07:06 adrenal insuficiency; DVT; Atrial Fib; CHF; CVA; Diabetes - IDDM; Hyperlipidemia; kd3 Hypertension; Hypothyroidism; L groin blood clot; lymphedema; Pancreatitis; Anxiety; - PSHx: 07:06 filter; kd3 - Immunization history:: Adult Immunizations up to date. - Social history:: Smoking status: Patient denies any tobacco usage or history of. ROS: 07:13 Constitutional: Negative for fever, chills, and weight loss, Cardiovascular: Negative rt for chest pain, palpitations, and edema, Respiratory: Negative for shortness of breath, cough, wheezing, and pleuritic chest pain, Abdomen/GI: Negative for abdominal pain, nausea, vomiting, diarrhea, and constipation, Skin: Negative for injury, rash, and discoloration, Psych: Negative for depression, anxiety, suicide ideation, homicidal ideation, and hallucinations. 07:13 MS/extremity: Positive for pain, Negative for injury or acute deformity. Exam: 07:13 Constitutional: This is a well developed, well nourished patient who is awake, alert, rt and in no acute distress. Head/Face: Normocephalic, atraumatic. Chest/axilla: Normal chest wall appearance and motion. Nontender with no deformity. No lesions are appreciated. Cardiovascular: Regular rate and rhythm with a normal S1 and S2. No gallops, murmurs, or rubs. Normal PMI, no JVD. No pulse deficits. Respiratory: Lungs have equal breath sounds bilaterally, clear to auscultation and percussion. No rales, rhonchi or wheezes noted. No increased work of breathing, no retractions or nasal flaring. Skin: Warm, dry with normal turgor. Normal color with no rashes, no lesions, and no evidence of cellulitis. Neuro: Awake and alert, GCS 15, oriented to person, place, time, and situation. Cranial nerves II-XII grossly intact. Motor strength 5/5 in all extremities. Sensory grossly intact. Cerebellar exam normal. Normal gait. Psych: Awake, alert, with orientation to person, place and time. Behavior, mood, and affect are within normal limits. 07:13 Musculoskeletal/extremity: Mild tenderness over left biceps tendon region, full range of motion, no deformities, no other focal areas of tenderness, pulses, motor, sensation intact. 07:25 ECG was reviewed by the Attending Physician. rt Vital Signs: 07:15 BP 168 / 74; Pulse 65; Resp 16; Temp 98; Pulse Ox 98% on R/A; ko1 07:51 BP 164 / 77; Pulse 65; Resp 16; Pulse Ox 99% ; ko1 08:50 BP 158 / 74; Pulse 66; Resp 16; Pulse Ox 99% ; ko1 MDM: 07:06 Patient medically screened. rt 08:32 Differential diagnosis: Fracture, dislocation, radiculopathy, cardiac etiology. Data rt reviewed: vital signs, nurses notes, lab test result(s), EKG, radiologic studies. Independent interpretation of the following test(s) in the Emergency Department X-Ray: My interpretation is No fracture seen on interpretation of x-ray. Care significantly affected by the following chronic conditions: Diabetes. Counseling: I had a detailed discussion with the patient and/or guardian regarding: the historical points, exam findings, and any diagnostic results supporting the discharge/admit diagnosis, lab results, radiology results, the need for outpatient follow up. 04/08 07:11 Order name: CBC with Diff; Complete Time: 07:57 rt 04/08 07:11 Order name: CMP; Complete Time: 08:09 rt 04/08 07:11 Order name: Troponin High Sensitivity; Complete Time: 08:09 rt 04/08 07:11 Order name: Lipase; Complete Time: 08:09 rt 04/08 07:11 Order name: Shoulder Left (2 View) XRAY; Complete Time: 07:57 rt 04/08 07:11 Order name: EKG; Complete Time: 07:12 rt 08 07:11 Order name: EKG - Nurse/Tech; Complete Time: 07:25 rt EC:25 Rate is 68 beats/min. Rhythm is regular, Normal Sinus Rhythm with No ectopy. QRS [place] rt is Normal. CO interval is normal. QRS interval is normal. QT interval is normal. No Q waves. T waves are Normal. No ST changes noted. Administered Medications: 08:37 Drug: Potassium Chloride PO 40 mEq Route: PO; ko1 Disposition Summary: 04/08/23 08:32 Discharge Ordered Location: Home rt Problem: new rt Symptoms: have improved rt Condition: Stable rt Diagnosis - Pain in left shoulder rt Followup: rt - With: Private Physician - When: 2 - 3 days - Reason: Discharge Instructions: - Discharge Summary Sheet rt - Musculoskeletal Pain rt - Shoulder Pain rt Forms: - Medication Reconciliation Form rt - Thank You Letter rt - Antibiotic Education rt - Prescription Opioid Use rt - Patient Portal Instructions rt Signatures: Dispatcher [employer] Jessica Perry, RN RN kd3 Linda Lewis RN RN ko1 Jaxon De La Rosa MD MD rt
--- NOTE | 2023-04-08 08:32 | ER ---
Nurse's Notes [facility] Name: Emelia aPyan Age: 82 yrs Sex: Female : 1940 Arrival Date: 04/08/2023 Time: 06:55 Bed 3 Private MD: Diagnosis: Pain in left shoulder Presentation: 04/08 07:04 Chief complaint: EMS states: She woke up this morning and said that her left arm and kd3 shoulder felt like there was lightning going down her arm. She said that she felt the pain when she was trying to get up out of bed. She didn't recall injuring it prior. Coronavirus screen: Vaccine status: Patient reports receiving the 2nd dose of the covid vaccine. Ebola Screen: No symptoms or risks identified at this time. Initial Sepsis Screen: Does the patient meet any 2 criteria? No. Patient's initial sepsis screen is negative. Does the patient have a suspected source of infection? No. Patient's initial sepsis screen is negative. Risk Assessment: Do you want to hurt yourself or someone else? Patient reports no desire to harm self or others. Onset of symptoms was April 08, 2023. 07:04 Method Of Arrival: EMS: [facility] kd3 07:04 Acuity: EDIS 4 kd3 Triage Assessment: 07:06 General: Appears in no apparent distress. Behavior is calm, cooperative. Pain: kd3 Complains of pain in left arm. Neuro: Level of Consciousness is awake, alert, obeys commands, Oriented to person, place, time, situation. Cardiovascular: Patient's skin is warm and dry. Respiratory: Airway is patent Trachea midline Respiratory effort is even, unlabored, Respiratory pattern is regular, symmetrical. Historical: - Allergies: 07:06 Bactrim; kd3 07:06 Cipro; kd3 07:06 Xarelto; kd3 07:06 Zosyn; kd3 - PMHx: 07:06 adrenal insuficiency; DVT; Atrial Fib; CHF; CVA; Diabetes - IDDM; Hyperlipidemia; kd3 Hypertension; Hypothyroidism; L groin blood clot; lymphedema; Pancreatitis; Anxiety; - PSHx: 07:06 filter; kd3 - Immunization history:: Adult Immunizations up to date. - Social history:: Smoking status: Patient denies any tobacco usage or history of. Screenin:15 [facility] ED Fall Risk Assessment (Adult) History of falling in the last 3 months, ko1 including since admission No falls in past 3 months (0 pts) Confusion or Disorientation No (0 pts) Intoxicated or Sedated No (0 pts) Impaired Gait Yes (1 pt) Mobility Assist Device Used Yes (1 pt) Altered Elimination No (0 pt) Score/Fall Risk Level 0 - 2 = Low Risk Oriented to surroundings, Maintained a safe environment, Educated pt \T\ family on fall prevention, incl call for assistance when getting out of bed, Assessed \T\ reinforced patient's understanding of fall precautions, Provided non-skid footwear, Hourly rounding (assess needs \T\ fall precautionary measures) done, Used ambulatory aids as needed (educated on \T\ assisted with), Used gait belt as appropriate. Abuse screen: Denies threats or abuse. Denies injuries from another. Nutritional screening: No deficits noted. Tuberculosis screening: No symptoms or risk factors identified. Assessment: 07:15 Neuro: No deficits noted. Cardiovascular: No deficits noted. Respiratory: No deficits ko1 noted. GI: No deficits noted. : No deficits noted. EENT: No deficits noted. Derm: No deficits noted. Musculoskeletal: Reports pain in anterior aspect of left shoulder and posterior aspect of left shoulder since this morning. Vital Signs: 07:15 BP 168 / 74; Pulse 65; Resp 16; Temp 98; Pulse Ox 98% on R/A; ko1 07:51 BP 164 / 77; Pulse 65; Resp 16; Pulse Ox 99% ; ko1 08:50 BP 158 / 74; Pulse 66; Resp 16; Pulse Ox 99% ; ko1 ED Course: 07:03 Patient arrived in ED. kd3 07:04 Jaxon De La Rosa MD is Attending Physician. rt 07:06 Triage completed. kd3 07:07 Arm band placed on right wrist. kd3 07:15 Linda Lewis, ODILON is Primary Nurse. ko1 07:15 Patient has correct armband on for positive identification. Bed in low position. Call ko1 light in reach. Side rails up X2. Provided Education on: NA. Client placed on continuous cardiac and pulse oximetry monitoring. NIBP monitoring applied. rn interventional on. Door closed. Noise minimized. Warm blanket given. 07:21 Shoulder Left (2 View) XRAY In Process Unspecified. EDMS 07:35 Maintain EMS IV. Dressing intact. Site clean \T\ dry. Gauge \T\ site: 22g right AC. IV is ko 1 patent, is intact, without good blood return, Flushed right antecubital with 5 ml normal saline Converted IV to saline lock on. 07:37 CBC with Diff Sent. ko1 07:37 CMP Sent. ko1 07:37 Troponin High Sensitivity Sent. ko1 07:37 Lipase Sent. ko1 08:50 No provider procedures requiring assistance completed. IV discontinued, intact, ko1 bleeding controlled, No redness/swelling at site. Pressure dressing applied. Administered Medications: 08:37 Drug: Potassium Chloride PO 40 mEq Route: PO; ko1 Medication: 08:50 VIS not applicable for this client. ko1 Outcome: 08:32 Discharge ordered by . rt 08:50 Discharged to home via wheelchair, with family. ko1 08:50 Condition: stable 08:50 Discharge instructions given to patient, family, Instructed on discharge instructions, follow up and referral plans. Demonstrated understanding of instructions, follow-up care. 08:51 Patient left the ED. ko1 Signatures: Dispatcher [employer] [facility] Jessica Salomon RN RN kd3 Linda Lewis RN RN ko1 Jaxon De La Rosa MD MD rt
[2023-04-08] MEDS ORDERED: POTASSIUM CL SA 10 MEQ TAB PO ONE (08:44)
[2023-04-08 09:17] VITALS: TEMP 98
[2023-04-08 09:19] VITALS: O2SAT 99
[2023-04-08 09:20] VITALS: BP 158/74
--- NOTE | 2023-04-11 13:14 | EKG ---
Test Date: 2023-04-08 Test Time: 07:20:49 Search Marketing Coordinator: TAWNY MEASUREMENT RESULTS: Intervals: Rate: 68 NC: 114 QRSD: 86 QT: 418 QTc: 444 [place]: P: 44 NC: 114 QRS: -6 T: 44 INTERPRETIVE STATEMENTS: Normal sinus rhythm Normal ECG Compared to ECG 12/15/2022 04:16:20 Short NC interval no longer present Electronically Signed On 04-11-23 13:09:36 CDT by Kemar Hall
== END 2023-04-08 08:51 | disposition home or self-care (01) ==
LOC: ER 06:55
DX: M25.512 Pain in left shoulder (principal); Z86.718 Personal history of other venous thrombosis and embolism; Z88.1 Allergy status to other antibiotic agents; Z88.8 Allergy status to other drugs, medicaments and biological substances
CPT/HCPCS: 36415; 80053; 83690; 84484; 85025; 93005; 99284

== ENCOUNTER 2023-07-09 10:08 | Observation (INO) | payer OTHER ==
--- OUTSIDE RECORDS SUMMARY | 2023-07-09 10:29 | XMS REPORT | Continuity of Care Document ---
:1940 Author Organization [facility] t Address [address] [facility] [address] [place] [address] Care Team Providers Name Role Phone Asked, No Pcp Primary Care Physician Unavailable AVIS BAKER, AVIS Attending Clinician Unavailable [id number] Attending Clinician Unavailable Kemar Hall Attending Clinician Unavailable Chel Valdez Attending Clinician Unavailable Dany Durán Attending Clinician Unavailable JOSY SYED Attending Clinician Unavailable JASON Attending Clinician Unavailable Barry Pack MD Attending Clinician Ree Tolbert Attending Clinician ABELINO AMARO Attending Clinician Unavailable ALANNA MOBLEY Attending Clinician Unavailable MARYSOL NGUYEN Attending Clinician Unavailable Doctor Unassigned, [place] Attending Clinician Unavailable Lynne Foster Attending Clinician Bonifacio STRATTON, Jose Eduardo Attending Clinician [phone] [place] [address] Attending Clinician Unavailable Pamela Terry DO Attending Clinician Chelsey Barker RN Attending Clinician Unavailable Josy Syed MD Attending Clinician Zach FAROOQ, Avtar Attending Clinician Kadeem DONALD, Todd Bates Attending Clinician Unavailable RAINE ZAYAS Attending Clinician Unavailable Hernando STRATTON, Ltaoya Duff Attending Clinician Abril STRATTON, Fabrizio Ortiz Attending Clinician Omar STRATTON, Matt Ghosh Attending Clinician Candelario STRATTON, Raine Zimmer Attending Clinician Kylie STRATTON, Jai Attending Clinician [phone] Chase Palafox MD Attending Clinician Katelynn STRATTON, Felipe Tejada Attending Clinician Jay STRATTON, Bela Attending Clinician Edith STRATTON, Rio Attending Clinician Aidan Watson MD Attending Clinician YOAV DEL ROSARIO Attending Clinician Unavailable LUIZ VILLA Attending Clinician Unavailable RANCHO SANDOVAL Attending Clinician Unavailable SAMUEL, AVIS, AVIS Admitting Clinician Unavailable [id number] Admitting Clinician Unavailable JOSY SYED Admitting Clinician Unavailable SAVANAON_R Admitting Clinician Unavailable ABELINO AMARO Admitting Clinician Unavailable Josy Syed MD Admitting Clinician RAINE ZAYAS Admitting Clinician Unavailable Raine Zayas MD Admitting Clinician LUIZ VILLA Admitting Clinician Unavailable RANCHO SANDOVAL Admitting Clinician Unavailable Payers Payer Name Policy Type Policy Number Effective Date Expiration Source Date AETNA MEDICARE PPO [id number] 2022 00:00:00 AETM AETM [id number] MEDICARE PART A \\T\\ B [id number] 2003 00:00:00 AETNA (MEDICARE [id number] 2022 REPLACEMENT PPO) 00:00:00 MEDICARE B-[place]: [id number] 2003 NOVPurple HarryS SOLUTIONS 00:00:00 AETNA [id number] 2000 00:00:00 MEDICAREMEDICARE A [id number] CEDRIC michael [id number] 2003 00:00:00 [facility]ET[facility] - MGD CAREAETNA [id number] CEDRIC Foster INDEMNITY NON 00:00:00 [facility] [id number] Med ical 14-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..] mmuni 00:00: ty 00 Hospita l Clinics Pressure [...] lower Disease Active U nivers extremity, extremity, 7 it y of proximal, [...] is 3-05 Communi 00:00: ty 00 [facility] Compressio Compressio Problem Active S [facility] n fracture n Fracture 3-05 Co mmuni of lumbar of Lumbar 00:00: ty spine Spine 00 [facility] Osteoporot Osteoporot Problem Active S [facility] ic ic 3-05 Communi fracture Fracture 00:00: ty [facility] Scoliosis Scoliosis Problem Active [facility] madeleine of lumbar of Lumbar 2-12 Comm uni spine Spine 00:00: ty 00 [facility] Hyperglyce Hyperglyce Problem Active S [facility]eny veena veena 9-14 Communi 00:00: ty 00 [facility] Coronary Coronary Problem Active [facility] arterioscl Arterioscl 8-19 Co mmuni erosis in erosis in 00:00: ty [place] 00 [facility] artery Artery l [facility] 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 8-19 Co mmuni icular icular 00:00: ty tachycardi Tachycardi 00 Ho spita a a l Clinics Paroxysmal Paroxysmal Problem Active S [facility] atrial Atrial 8-19 Communi fibrillati Fibrillati 00:00: ty on on [facility] Thrombophl Thrombophl Problem Active [facility] ebitis of ebitis of 8-19 Comm uni lower Lower 00:00: ty extremitie Extremitie 00 Ho spita s s l Clinics Edema of Edema of Problem Active 2020-0 [facility] y lower Lower 8-19 Communi extremity Extremity 00:00: ty 00 [facility] Palpitatio Palpitatio Problem Active 2020-0 S ween[facility] ns ns 8- Communi 00:00: ty 00 [facility] 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 1-07 Commun i pituitary Pituitary 00:00: ty gland Gland 00 [facility] Hypothyroi Hypothyroi Problem Active 2020-0 S [facility] dism dism 1-07 Communi 00:00: ty 00 [facility] Type 2 Type 2 Problem Active 2019- [place] diabetes Diabetes 1-07 Commun i mellitus Mellitus 00:00: ty 00 [facility] Diabetic Diabetic Problem Active 2019- [place] peripheral Peripheral 1-07 Co mmuni neuropathy Neuropathy 00:00: ty 00 [facility] Mixed Mixed Problem Active 2019- [place] hyperchole Hyperchole 1-07 Co mmuni sterolemia sterolemia 00:00: ty and and [facility] hypertrigl Hypertrigl l yceridemia yceridemia Cl inics Anxiety Anxiety Problem Active 2019-0 [place] 1-07 Communi 00:00: ty 00 [facility] Carpal Carpal Problem Active 2019-0 [place] tunnel 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 00:00: ty 00 [facility] Neuropathy Neuropathy Problem Active 2019- S weeny 1-07 Communi 00:00: ty 00 [facility] Hypertensi Hypertensi Problem Active 2020-0 S weeny ve ve 1-07 Communi disorder Disorder 00:00: ty 00 [facility] Chronic Chronic Problem Active 2020-0 [place] atrial Atrial 1-07 Communi fibrillati Fibrillati 00:00: ty on on [facility] Deep Deep Problem Active 2020-0 [place] venous Venous 1-07 Communi thrombosis Thrombosis 00:00: ty 00 [facility] Lymphedema Lymphedema Problem Active 2020-0 S weeny 1-07 Communi 00:00: ty 00 [facility] Gastroesop Gastroesop Problem Active 2020-0 S [facility] hageal hageal 1-07 Communi reflux Reflux 00:00: ty disease Disease 00 [facility] History of History of Problem Active 2020-0 S [facility] malignant Malignant 09-11 Comm uni neoplasm Neoplasm 00:00: ty of breast of Breast 00 Hosp meryl l Clinics Sepsis Sepsis Disease Recurre [facility] 01[facility]14 [facility]: Medical 00 [place] Paroxysmal Paroxysmal Disease Recurre [facility] A-fib A-fib nce 01-14 [facility] 00:00: Medical 00 [place] Pancreatit Pancreatit Disease Active C [facility] is is 01-14 [facility] 00:00: Medical 00 [place] Chest pain Chest pain Disease Active U nivers 6-15 ity of 00:00: [place] 00 Medical Branch Allergies, Adverse Reactions, Alerts Allergy Allergy Status Severity Reaction(s) Onset Inactive Treating Comm ents Source Name Type Date Date Clinician Ciproflo Allergy Active [place] xacin to 10-13 Health substanc 00:00: e 00 [place] Allergy [...] Itching [facility] S t xacin ty to 5-12 [facility] adverse 00:00: Medical reaction 00 Center s [place] Drug Active Other (See Internal [facility] ban Intolera Comments) 512 bleeding [facility] es nce 00:00: Medical 00 Center Cipro Allergy Active [place] to Communi substan ty e Hospita l Clinics PENICILL Allergy Active [place] INS to Communi substanc ty e Hospita l Clinics Xarelto Allergy Active [place] to Communi substan ty e Hospita l Clinics Family History Family Member Diagnosis Comments Start Date Stop Date Source Natural father [facility] Natural father Heart disease [facility] Natural mother Coronary [facility] Natural mother Heart disease [facility] Natural sister Heart [facility] Social History Social Habit Start Date Stop Date Quantity Comments Source Sexual orientation Method ist [facility] Gender identity [facility] Exposure to 2022-12-20 2022-12-30 Not sure [facility] SARS-CoV-2 (event) 00:00:00 10:11:00 Alcohol intake 2018-11-09 2018-11-[address] [facility] 00:00:00 00:00:00 non-drinker of [facility] nter alcohol (finding) Tobacco use and 2018-03-13 2018-03-[address] [facility] exposure 00:00:00 00:00:00 tobacco non-user Medical [place] Sex Assigned At [address] [facility] 00:[facility]00 [facility]00 [facility] Center Smoking Status Start Date Stop Date Source Tobacco smoking consumption [facility] [place] unknown Never smoker [facility] Medications Ordered Filled Start Stop Current Ordering Indication Dosage Frequency Signature Comments Components Source Medication Medication Date Date Medication? Clinician (SIG) Name Name nicolasaabbie 8 marlin 8 No ramisraeleon [place] mg tablet mg tablet 8-28 8 mg Commu ni TAKE 1 TAKE 1 00:00: tablet ty TABLET BY TABLET BY 00 TAKE 1 Hos [facility]ichael MOUTH EVERY MOUTH EVERY TABLET BY l DAY DAY MOUTH Clinics EVERY DAY ramelteon 8 ramelteon 8 No ramelteon [place] mg tablet mg tablet 8-28 8 mg Commu ni TAKE 1 TAKE 1 00:00: tablet ty TABLET BY TABLET BY 00 TAKE 1 Hos michael MOUTH EVERY MOUTH EVERY TABLET BY l DAY DAY MOUTH Clinics EVERY DAY trazodone trazodone No trazodone [place] 100 mg 100 mg 7-25 100 mg Communi tablet tablet 00:00: tablet ty 00 [facility] trazodone trazodone No trazodone [place] 100 mg 100 mg 7-25 100 mg Communi tablet tablet 00:00: tablet ty 00 [facility] lidocaine lidocaine No Q1D lidocaine [place] (PF) 50 (PF) 50 3-08 (PF) 50 Commun i mg/5 mL (1 mg/5 mL (1 11:26: mg/5 mL (1 ty %) %) 24 %) Hospita injection injection injection l syringeTake syringeTake syringeTak Clinics 2.1 mL 2.1 mL e 2.1 mL every day every day every day by by by injection injection injection route. route. route. ceftriaxone ceftriaxone No ceftriaxon [place] 500 mg 500 mg 3-08 e 500 mg Communi solution solution 11:25: solution t y for for 40 for Hospita injectionTa injectionTa injectionT l ke 500 mg ke 500 mg anat 500 mg Clinics by by by injection injection injection route. route. route. lidocaine lidocaine No Q1D lidocaine [place] (PF) 50 (PF) 50 3-04 (PF) 50 [...] days. 4 days. ceftriaxone ceftriaxone No ceftriaxon [place] 500 mg 500 mg 3-04 e 500 mg Communi solution solution 11:31: solution t y for for 50 for Hospita injectionTa injectionTa injectionT l ke 500 mg ke 500 mg naat 500 mg Clinics by by by injection injection injection route. route. route. lidocaine lidocaine No Q1D lidocaine [place] (PF) 50 (PF) 50 3-03 (PF) 50 [...] days. 4 days. ceftriaxone ceftriaxone No ceftriaxon [place] 500 mg 500 mg 3-03 e 500 mg Communi solution solution 14:30: solution t y for for 22 for Hospita injectionTa injectionTa injectionT l ke 500 mg ke 500 mg anat 500 mg Clinics by by by injection injection injection route. route. route. ceftriaxone ceftriaxone No ceftriaxon [place] 500 mg 500 mg 2-28 e 500 mg Communi solution solution 14:40: solution t y for for 23 for Hospita injectionTa injectionTa injectionT l ke 500 mg ke 500 mg anat 500 mg Clinics by by by injection injection injection route. route. route. lidocaine lidocaine No Q1D lidocaine [place] (PF) 50 (PF) 50 2-28 (PF) 50 [...] for days. days. 4 days. isosorbide Yes [id number] 30mg Take 1 U nivers mononitrate 7-10 tablet by ity of 30 mg 24 hr 00:00: mouth [place] tablet 00 daily. Medical Branch levothyroxi Yes [id number] 112ug Take 1 Univers ne 112 mcg 7-10 tablet by ity of tablet 00:00: mouth [place] 00 every Medical morning. Branch hydrocortis Yes [id number] 40mg Take 2 Univers one 20 mg 7-10 tablets by ity of tablet 00:00: mouth [place] 00 every Medical morning. Branch isosorbide Yes [id number] 30mg Take 1 U nivers mononitrate 7-10 tablet by ity of 30 mg 24 hr 00:00: mouth [place] tablet 00 daily. Medical Branch levothyroxi Yes [id number] 112ug Take 1 Univers ne 112 mcg 7-10 tablet by ity of tablet 00:00: mouth [place] 00 every Medical morning. Branch hydrocortis Yes [id number] 40mg Take 2 Univers one 20 mg 7-10 tablets by ity of tablet 00:00: mouth [place] 00 every Medical morning. Branch losartan Yes 100mg Take 100 Univ ers (COZAAR) 7-09 mg by ity of 100 mg 18:04: mouth [place] tablet 43 daily. Medical Branch amLODIPine Yes 5mg Take 5 mg Un ezekiel (NORVASC) 5 7-09 by mouth ity of mg tablet 18:04: daily. [place] [id number] Medical Branch CALCIUM Yes 1{tbl} Take 1 [...] mouth ity of mg tablet 18:04: daily. [place] [address] Medical Branch CALCIUM Yes 1{tbl} Take 1 [...] 43 as needed. Medical Branch lipase-prot Yes [id number] 1{capsu Take 1 Univers ease-amylas 03-13 107 le} capsule by it y of e 00:00: mouth 3 [place] 10,500-35,5 00 (three) Medic al 00- 61,500 times Branch unit daily with meals. polyethylen Yes [id number] 17g Take 1 Univers e glycol - Packet by ity of 3350 17 00:00: mouth 2 [place] gram powder 00 (two) Medical times Branch daily as needed for Constipati on. simethicone Yes [id number] 80mg Take 1 Univers 80 mg 7- tablet by ity of chewable 00:00: mouth 2 [place] tablet 00 (two) Medical times Branch daily as needed for Gas. somatropin Yes [id number] .2mg inject U nivers 0.2 mg/0.25 7-09 0.25 mL ity o f mL 00:00: under the [place] 00 skin Medical daily. Branch apixaban 5 Yes [id number] 5mg Take 1 Unive rs mg tablet 7- tablet by ity o f 00:00: mouth 2 [place] 00 (two) Medical times Branch daily. Indication s: atrial fibrillati on hydrocortis Yes [id number] 20mg Take 1 Univers one 20 mg 7- tablet by ity o f tablet 00:00: mouth [place] 00 every Medical evening. Branch mirtazapine Yes [id number] 15mg Take 1 Univers 15 mg 7- tablet by ity of tablet 00:00: mouth at [place] 00 bedtime. Medical Branch hydrocortis Yes [id number] 100mg 2 mL by Univers one sod - Intramuscu ity of succ 100 00:00: lar route [place] mg/2 mL 00 as needed Medical injection (As rescue Bran ch for low cortisol if there is low BP, N/V.). lipase-prot Yes [id number] 1{capsu Take 1 Univers ease-amylas 7-09 107 le} capsule by it y of e 00:00: mouth 3 [place] 10,500-35,5 00 (three) Medic al 00- 61,500 times Branch unit daily with meals. polyethylen Yes [id number] 17g Take 1 Univers e glycol 03-13 Packet by ity of 3350 17 00:00: mouth 2 [place] gram powder 00 (two) Medical times Branch daily as needed for Constipati on. simethicone Yes [id number] 80mg Take 1 Univers 80 mg 03-13 tablet by ity of chewable 00:00: mouth 2 [place] tablet 00 (two) Medical times Branch daily as needed for Gas. somatropin Yes [id number] .2mg inject U nivers 0.2 mg/0.25 03-13 0.25 mL ity o f mL 00:00: under the [place] 00 skin Medical daily. Branch apixaban 5 Yes [id number] 5mg Take 1 Unive rs mg tablet 03-13 tablet by ity o f 00:00: mouth 2 [place] 00 (two) Medical times Branch daily. Indication s: atrial fibrillati on hydrocortis Yes [id number] 20mg Take 1 Univers one 20 mg 03-13 tablet by ity o f tablet 00:00: mouth [place] 00 every Medical evening. Branch mirtazapine Yes [id number] 15mg Take 1 Univers 15 mg 03-13 tablet by ity of tablet 00:00: mouth at [place] 00 bedtime. Medical Branch hydrocortis Yes [id number] 100mg 2 mL by Univers one sod 03-13 Intramuscu ity of succ 100 00:00: lar route [place] mg/2 mL 00 as needed Medical injection (As rescue Bran ch for low cortisol if there is low BP, N/V.). acetaminoph 2021- No [id number] 650mg Take 2 Univers en 325 mg 03-13 8 tablets by ity of tablet 00:00: 04:59 mouth [place] 00 :00 every 6 Medical (six) Branch hours as needed for Pain (scale 1-3). acetaminoph 2021- No [id number] 650mg Take 2 Univers en 325 mg [...] 00 every Medical evening. Branch cholecalcif Yes [id number] Take [facility], 3-07 50,000 [facility] vitamin D3, 12:12: Units by Ms dical 50,000 unit 28 mouth once Ce [...] Medic al PnIj 28 Center cholecalcif Yes [id number] Take [facility], 3-07 50,000 [facility] vitamin D3, 12:12: Units by Ms dical 50,000 unit 28 mouth once Ce [...] al PnIj 28 Center cholecalcif 20190 Yes [id number] Take [facility], 3-07 50,000 [facility] [...] al PnIj 28 Center cholecalcif 2019-0 Yes [id number] [facility], 3-07 50,000 [facility] [...] Medic al PnIj 28 Center cholecalcif Yes [id number] Take [facility], 3-07 50,000 [facility] vitamin D3, 12:12: Units by Ms dical 50,000 unit 28 mouth once Ce nter Tab every 2 weeks. hydrocortis 2019 Yes 10mg Q.5D Take [address] one 3-07 by mouth 2 [facility] (CORTEF) 20 12:12: (two) Medic al MG tablet 28 times Center daily . fenofibrate 0 Yes 48mg QD Take [address] (TRICOR) 48 3-07 by mouth Luke s MG tablet 12:12: daily. Medica l 28 [place] omeprazole Yes 40mg QD Take 40 mg [...] al PnIj 28 Center cholecalcif 2019-0 Yes [id number] [facility], 3-07 50,000 [facility] [...] al PnIj 28 Center cholecalcif 2019-0 Yes [id number] [facility], 3-07 50,000 [facility] [...] morning on tablet an empty stomach. amLODIPine 0 Yes 5mg QD Take [address] (NORVASC) 5 3-07 by mouth Luke s MG tablet 12:12: daily. Medica l 27 [place] losartan Yes 100mg QD Take [address] (COZAAR) 3-07 mg by [facility] 100 MG 12:12: mouth Medical tablet 27 daily. Center methscopola 0 Yes 5mg QD Take 5 mg C [...] MG tablet 12:12: daily. Medica l 27 [place] losartan Yes 100mg QD Take [address] (COZAAR) 3-07 mg by [facility] 100 MG 12:12: mouth Medical tablet 27 daily. Center methscopola 0 Yes 5mg QD Take 5 mg C [...] MG tablet 12:12: daily. Medica l 27 [place] losartan 0 Yes 100mg QD Take 100 [...] 00:00: mouth Medical tablet 00 daily . [place] warfarin 2018-0 Yes 2.5mg QD Take 2.[address] (COUMADIN) 4-25 mg by [facility]ukes 2.5 MG 00:00: mouth Medical tablet 00 daily . [place] warfarin 2018-0 Yes 2.5mg QD Take 2.[address] (COUMADIN) 4-25 mg by [facility]ukes 2.5 MG 00:00: mouth Medical tablet 00 daily . [place] warfarin 2018-0 Yes 2.5mg QD Take 2.[address] (COUMADIN) 4-25 mg by Lukes 2.5 MG 00:00: mouth Medical tablet 00 daily . [place] warfarin 2018-0 Yes 2.5mg QD Take 2.[address] (COUMADIN) 4-25 mg by [facility]ukes 2.5 MG 00:00: mouth Medical tablet 00 daily . [place] warfarin 2018-0 Yes 2.5mg QD Take 2.[address] (COUMADIN) 4-25 mg by [facility]ukes 2.5 MG 00:00: mouth Medical tablet 00 daily . Center warfarin 2018-0 Yes 2.5mg QD Take 2.[address] (COUMADIN) 4-25 mg by [facility]ukes 2.5 MG 00:00: mouth Medical tablet 00 daily . Center gabapentin 2018-0 Yes 600mg Q.[id number] Take [address] (NEURONTIN) 4-16 [id number] mg by L ukes 600 MG 00:00: 3D mouth 3 Medical tablet 00 (three) Center times daily . gabapentin 2018-0 Yes 600mg Q.[id number] Take [address] (NEURONTIN) 4-16 [id number] mg by L ukes 600 MG 00:00: 3D mouth 3 Medical tablet 00 (three) Center times daily . gabapentin 2018-0 Yes 600mg Q.[id number] Take [address] (NEURONTIN) 4-16 [id number] mg by L ukes 600 MG 00:00: 3D mouth 3 Medical tablet 00 (three) Center times daily . gabapentin 2018-0 Yes 600mg Q.[id number] Take [address] (NEURONTIN) 4-16 [id number] mg by L ukes 600 MG 00:00: 3D mouth 3 Medical tablet 00 (three) Center times daily . gabapentin 2018-0 Yes 600mg Q.[id number] Take [address] (NEURONTIN) 4-16 [id number] mg by L ukes 600 MG 00:00: 3D mouth 3 Medical tablet 00 (three) Center times daily . gabapentin 2018-0 Yes 600mg Q.[id number] Take [address] (NEURONTIN) 4-16 [id number] mg by L ukes 600 MG 00:00: 3D mouth 3 Medical tablet 00 (three) Center times daily . gabapentin 2018-0 Yes 600mg Q.[id number] Take [address] (NEURONTIN) 4-16 [id number] mg by L ukes 600 MG 00:00: [...] MCG 00:00: daily . Medical tablet 00 [place] liothyronin Yes 5ug QD Take [address] e (CYTOMEL) 3-21 by mouth Luke s 5 MCG 00:00: daily . Medical tablet 00 [place] liothyronin Yes 5ug QD Take [address] e (CYTOMEL) 3-21 by mouth Luke s 5 MCG 00:00: daily . Medical tablet 00 [place] liothyronin Yes 5ug QD Take [address] e (CYTOMEL) 3-21 by mouth Luke s 5 MCG 00:00: daily . Medical tablet 00 [place] liothyronin Yes 5ug QD Take [address] e (CYTOMEL) 3-21 by mouth Luke s 5 MCG 00:00: daily . Medical tablet 00 [place] liothyronin Yes 5ug QD Take [address] e (CYTOMEL) 3-21 by mouth Luke s 5 MCG 00:00: daily . Medical tablet 00 [place] Klor-Con 10 Klor-Con 10 No Klor-Con [place] mEq mEq 10 mEq Communi tablet,exte tablet,exte tablet,ext ty nded nded ended Hospita release release release l TAKE 1 TAKE 1 TAKE 1 Clinics TABLET BY TABLET BY TABLET BY MOUTH EVERY MOUTH EVERY MOUTH DAY WITH DAY WITH EVERY DAY FOOD FOOD WITH FOOD levothyroxi levothyroxi No levothyrox [place] ne 112 mcg ne 112 mcg ine 112 Communi tablet 1 tablet 1 mcg tablet t y TAB DAILY TAB DAILY 1 TAB Hosp meryl 1/2 HR. 1/2 HR. DAILY 1/2 l BEFORE BEFORE HR. BEFORE Clini cs BREAKFAST BREAKFAST BREAKFAST WITH WATER WITH WATER WITH WATER lidocaine lidocaine No 2.1mL lidocaine [place] (PF) 10 (PF) 10 (PF) 10 Commun i mg/mL (1 %) mg/mL (1 %) mg/mL (1 ty injection injection %) Hospi ta solution solution injection l Take 2.1 mL Take 2.1 mL solution Clinics by by Take 2.1 injection injection mL by route. route. injection route. lidocaine lidocaine No 2.1mL Q1D lidocaine [place] (PF) 50 (PF) 50 (PF) 50 Commun [...] mL lidocaine 5 lidocaine 5 No lidocaine [place] % topical % topical 5 % Commu ni patch patch topical ty patch [facility] liothyronin liothyronin No liothyroni [place] e 5 mcg e 5 mcg ne 5 mcg Commu ni tablet tablet tablet ty [facility] mirtazapine mirtazapine No mirtazapin [place] 15 mg 15 mg e 15 mg Communi tablet TAKE tablet TAKE tablet ty 1 TABLET BY 1 TABLET BY TAKE 1 Hospita MOUTH MOUTH TABLET BY l EVERYDAY AT EVERYDAY AT MOUTH Clinics BEDTIME BEDTIME EVERYDAY AT BEDTIME nitroglycer nitroglycer No 1 nitroglyce [place] in 0.4 mg in 0.4 mg rin 0.4 mg Communi sublingual sublingual sublingual ty tablet [facility] [address] 1 l tablet as tablet as tablet as Clinics needed by needed by needed by sublingual sublingual sublingual route. route. route. omeprazole omeprazole No omeprazole [place] 20 mg 20 mg 20 mg Communi [...] ty gauge TEST gauge TEST gauge TEST [facility] TWICE A DAY TWICE A DAY TWICE [...] A DAY Clinics pantoprazol pantoprazol No pantoprazo [place] e 40 mg e 40 mg le 40 mg Commu ni tablet,indira tablet,indira tablet,del ty yed release yed release ayed H ospita Take 1 Take 1 release l tablet BID tablet BID Take 1 C linics by mouth by mouth tablet BID by mouth phenazopyri phenazopyri No phenazopyr [place] dine 200 mg dine 200 mg idine 200 Communi tablet TAKE tablet TAKE mg tablet ty 1 TABLET BY 1 TABLET BY TAKE 1 Hospita MOUTH THREE MOUTH THREE TABLET BY l TIMES A DAY TIMES A DAY MOUTH Clinics FOR 3 DAYS FOR 3 DAYS THREE TIMES A DAY FOR 3 DAYS potassium potassium No potassium [place] chloride ER chloride ER chloride Communi 20 mEq 20 mEq ER 20 mEq ty tablet,exte tablet,exte tablet,ext Hospita nded nded ended l release(par release(par release(nc Clinics t/cryst) t/cryst) rt/cryst) TAKE 1 TAKE 1 TAKE 1 TABLET BY TABLET BY TABLET BY MOUTH EVERY MOUTH EVERY MOUTH DAY DAY EVERY DAY Santyl 250 Santyl 250 No Santyl 250 [place] unit/gram unit/gram unit/gram Communi topical topical topical ty ointment ointment ointment Hos [facility]ichael APPLY A APPLY A APPLY A l [facility] THICK THICK THICK AMOUNT TO AMOUNT TO AMOUNT TO WOUND 3 WOUND 3 WOUND 3 TIMES A TIMES A TIMES A WEEK WEEK WEEK sotalol 160 sotalol 160 No sotalol [facility] mg tablet mg tablet 160 mg Com raz TAKE 1 TAKE 1 tablet ty TABLET BY TABLET BY TAKE 1 [facility] MOUTH TWICE MOUTH TWICE TABLET BY l A DAY A DAY MOUTH Clinics TWICE A DAY sulfamethox sulfamethox No sulfametho [facility] azole 800 azole 800 xazole 800 Communi [...] Suprax 200 No 5mL BID Suprax 200 [facility] mg/5 mL mg/5 mL mg/5 mL Commun i oral oral oral ty suspension suspension suspension [facility]osp[facility] Take 5 mL Take 5 mL Take 5 mL l twice a day twice a day twice a Clinics by oral by oral day by route for 7 route for 7 oral route days. days. for 7 days. tramadol 50 tramadol 50 No tramadol [facility] mg tablet mg tablet 50 mg Comm uni TAKE 1 TAKE 1 tablet ty TABLET BY TABLET BY TAKE 1 [facility] MOUTH AT MOUTH AT TABLET BY l BEDTIME AND BEDTIME AND MOUTH AT Clinics IN MORNING IN MORNING BEDTIME AND IN MORNING amlodipine amlodipine No amlodipine [facility] 5 mg tablet 5 mg tablet 5 mg [facility] TAKE 1 TAKE 1 tablet ty TABLET BY TABLET BY TAKE 1 [facility] MOUTH EVERY MOUTH EVERY TABLET BY l DAY DAY MOUTH Clinics EVERY DAY atorvastati atorvastati No atorvastat [facility] n 20 mg n 20 mg in 20 mg [facility] ni tablet TAKE tablet TAKE tablet ty 1 TABLET BY 1 TABLET BY TAKE 1 [facility]ospita MOUTH EVERY MOUTH EVERY TABLET BY l DAY FOR 90 DAY FOR 90 MOUTH Cl inics DAYS DAYS EVERY DAY FOR 90 DAYS BD Kalee 2nd BD K[facility] 2nd No BD Kalee [facility] Gen Pen Gen Pen 2nd Gen Commun i Needle 32 Needle 32 Pen Needle ty gauge x gauge x 32 gauge x [facility] " 1 " 1 " 1 l TIME A DAY TIME A DAY TIME A DAY Clinics cholecalcif cholecalcif No cholecalci [facility] ghada ghada ferol Communi (vitamin (vitamin (vitamin ty D3) 1,250 D3) 1,250 D3) 1,250 [facility]ospita mcg (50,000 mcg (50,000 mcg l unit) unit) (50,000 Clinics capsule capsule unit) TAKE 1 TAKE 1 capsule CAPSULES BY CAPSULES BY TAKE 1 MOUTH ONCE MOUTH ONCE CAPSULES EVERY 15 EVERY 15 BY MOUTH DAYS DAYS ONCE EVERY 15 DAYS clonazepam clonazepam No clonazepam [facility] 0.5 mg 0.5 mg 0.5 mg Communi [...] DAY EVERY DAY famotidine famotidine No famotidine [facility] 20 mg 20 mg 20 mg [facility] tablet TAKE tablet TAKE tablet ty 1 TABLET BY 1 TABLET BY TAKE 1 [facility]ospita MOUTH AT MOUTH AT TABLET BY l BEDTIME BEDTIME MOUTH AT Clini cs BEDTIME glipizide glipizide No glipizide [facility] ER 2.5 mg ER 2.5 mg ER [...] BREAKFAST Humatrope 6 Humatrope 6 No Humatrope [facility] mg (18 mg (18 6 mg (18 Communi unit) unit) unit) ty injection injection injection [facility] cartridge cartridge cartridge l INJECT INJECT INJECT Clinics 0.3MG 0.3MG 0.3MG SUBCUTANEOU SUBCUTANEOU SUBCUTANEO SLY EVERY SLY EVERY USLY EVERY DAY DAY DAY hydrocortis hydrocortis No hydrocorti [place] one 20 mg one 20 mg sone 20 mg [facility] tablet TAKE tablet TAKE tablet ty 1 TABLET BY 1 TABLET BY TAKE 1 [facility]ospita MOUTH WITH MOUTH WITH TABLET BY l BREAKFAST, BREAKFAST, MOUTH WITH Clinics THEN TAKE 2 THEN TAKE 2 BREAKFAST, TABLETS TABLETS THEN TAKE WITH WITH 2 TABLETS DINNER. DINNER. WITH DINNER. isosorbide isosorbide No isosorbide [facility] mononitrate mononitrate mononitrat Communi ER 30 mg ER 30 mg e ER 30 mg t y tablet,exte tablet,exte tablet,ext Hospita nded nded ended l release 24 release 24 release 24 Clinics hr TAKE 1 hr TAKE 1 hr TAKE 1 TABLET BY TABLET BY TABLET BY MOUTH EVERY MOUTH EVERY MOUTH DAY DAY EVERY DAY Klor-Con 10 Klor-Con 10 No Klor-Con [facility] mEq mEq 10 mEq [facility] tablet,exte tablet,exte tablet,ext ty nded nded ended [facility]ospita release release release l TAKE 1 TAKE 1 TAKE 1 Clinics TABLET BY TABLET BY TABLET BY MOUTH EVERY MOUTH EVERY MOUTH DAY WITH DAY WITH EVERY DAY FOOD FOOD WITH FOOD levothyroxi levothyroxi No levothyrox [facility] ne 112 mcg ne 112 mcg ine 112 Communi tablet TAKE tablet TAKE mcg tablet ty 1 TABLET BY 1 TABLET BY TAKE 1 Hospita MOUTH DAILY MOUTH DAILY TABLET BY l 1/2 HOUR 1/2 HOUR MOUTH Clinic s BEFORE BEFORE DAILY 1/2 BREAKFAST BREAKFAST HOUR WITH WATER WITH WATER BEFORE BREAKFAST WITH WATER lidocaine 5 lidocaine 5 No lidocaine [facility] % topical % topical 5 % Com[facility] ni patch APPLY patch APPLY topical ty 1 PATCH BY 1 PATCH BY patch Ho [facility]ita TOPICAL TOPICAL APPLY 1 l ROUTE ONCE ROUTE ONCE PATCH BY Clinics DAILY (MAY DAILY (MAY TOPICAL WEAR UP TO WEAR UP TO ROUTE ONCE 12HOURS.) 12HOURS.) DAILY (MAY WEAR UP TO 12HOURS.) liothyronin liothyronin No liothyroni [facility] e 5 mcg e 5 mcg ne [...] BREAKFAST WITH WATER mirtazapine mirtazapine No mirtazapin [facility] 15 mg 15 mg e 15 mg Communi tablet TAKE tablet TAKE tablet ty 1 TABLET BY 1 TABLET BY TAKE 1 Hospita MOUTH MOUTH TABLET BY l EVERYDAY AT EVERYDAY AT MOUTH Clinics BEDTIME BEDTIME EVERYDAY AT BEDTIME nitroglycer nitroglycer No 1 nitroglyce [facility] in 0.4 mg in 0.4 mg rin 0.4 mg Communi sublingual sublingual sublingual ty tablet tablet tablet Hospita Place [address] 1 l tablet as tablet as tablet as Clinics needed by needed by needed by sublingual sublingual sublingual route. route. route. omeprazole omeprazole No omeprazole [facility] 40 mg 40 mg 40 mg Communi [...] DAY l Clinics potassium potassium No potassium [place] chloride ER chloride ER chloride Communi 20 mEq 20 mEq ER 20 mEq ty tablet,exte tablet,exte tablet,ext [facility]ospita nded nded ended l release(par release(par release(pa Clinics t/cryst) t/cryst) rt/cryst) TAKE 1 TAKE 1 TAKE 1 TABLET BY TABLET BY TABLET BY MOUTH EVERY MOUTH EVERY MOUTH DAY DAY EVERY DAY Santyl 250 Santyl 250 No Santyl 250 [facility] unit/gram unit/gram unit/gram [facility] topical topical topical ty ointment ointment ointment [facility] APPLY A APPLY A APPLY A l [facility] THICK THICK THICK AMOUNT TO AMOUNT TO AMOUNT TO WOUND 3 WOUND 3 WOUND 3 TIMES A TIMES A TIMES A WEEK WEEK WEEK sotalol 160 sotalol 160 No sotalol [place] mg tablet mg tablet 160 mg Com raz TAKE 1 TAKE 1 tablet ty TABLET BY TABLET BY TAKE 1 [facility] MOUTH TWICE MOUTH TWICE TABLET BY l A DAY A DAY MOUTH Clinics TWICE A DAY tramadol 50 tramadol 50 No tramadol [facility] mg tablet mg tablet 50 mg Comm uni TAKE 1 TAKE 1 tablet ty TABLET BY TABLET BY TAKE 1 [facility] MOUTH EVERY MOUTH EVERY TABLET BY l 8 HOURS 8 HOURS MOUTH Cl inics NEEDED FOR NEEDED FOR EVERY 8 PAIN PAIN HOURS NEEDED FOR PAIN amlodipine amlodipine No amlodipine [facility] 5 mg tablet 5 mg tablet 5 mg [facility] TAKE 1 TAKE 1 tablet ty TABLET BY TABLET BY TAKE 1 [facility] MOUTH EVERY MOUTH EVERY TABLET BY l DAY DAY MOUTH Clinics EVERY DAY atorvastati atorvastati No atorvastat [place] n 20 mg n 20 mg in 20 mg Commu ni tablet TAKE tablet TAKE tablet ty 1 TABLET BY 1 TABLET BY TAKE 1 Hospita MOUTH EVERY MOUTH EVERY TABLET BY l DAY FOR 90 DAY FOR 90 MOUTH Cl inics DAYS DAYS EVERY DAY FOR 90 DAYS BD Kalee 2nd BD Kale[facility] 2nd No BD Aklee [facility] Gen Pen Gen Pen 2nd Gen Commun [...] EVERY 12 HOURS cholecalcif cholecalcif No cholecalci [facility] ghada ghada ferol Communi (vitamin (vitamin (vitamin ty D3) 1,250 D3) 1,250 D3) 1,250 [facility]osp[facility] mcg (50,000 mcg (50,000 mcg l unit) unit) (50,000 Clinics capsule capsule unit) TAKE 1 TAKE 1 capsule CAPSULE BY CAPSULE BY TAKE 1 MOUTH EVERY MOUTH EVERY CAPSULE BY 15 DAYS 15 DAYS MOUTH EVERY 15 DAYS ciprofloxac ciprofloxac No ciprofloxa [facility] in 500 mg in 500 mg anuj 500 mg Communi tablet tablet tablet ty [facility]ospita l Clinics clonazepam clonazepam No clonazepam [facility] 0.5 mg 0.5 mg 0.5 mg Communi [...] DAY EVERY DAY doxycycline doxycycline No doxycyclin [facility] hyclate 100 hyclate 100 e hyclate Communi mg capsule mg capsule 100 mg t y TAKE 1 TAKE 1 capsule [facility]ospita CAPSULE BY CAPSULE BY TAKE 1 l MOUTH TWICE MOUTH TWICE CAPSULE BY Clinics A DAY A DAY MOUTH TWICE A DAY famotidine famotidine No famotidine [facility] 20 mg 20 mg 20 mg [facility] tablet TAKE tablet TAKE tablet ty 1 TABLET BY 1 TABLET BY TAKE 1 [facility]ita MOUTH AT MOUTH AT TABLET BY l BEDTIME BEDTIME MOUTH AT Clini cs BEDTIME glipizide glipizide No glipizide [facility] ER 2.5 mg ER 2.5 mg ER [...] BREAKFAST Humatrope 6 Humatrope 6 No Humatrope [facility] mg (18 mg (18 6 mg (18 Communi unit) unit) unit) ty injection injection injection [facility] cartridge cartridge cartridge l INJECT INJECT INJECT Clinics 0.3MG 0.3MG 0.3MG SUBCUTANEOU SUBCUTANEOU SUBCUTANEO SLY ONCE A SLY ONCE A USLY ONCE DAY. DAY. A DAY. hydrocodone hydrocodone No hydrocodon [facility] 5 5 e 5 Communi mg-acetamin mg-acetamin mg-acetami ty ophen 325 ophen 325 nophen 325 [facility] mg tablet mg tablet mg tablet l Clinics hydrocortis hydrocortis No hydrocorti [place] one 20 mg one 20 mg sone 20 mg [facility] tablet TAKE tablet TAKE tablet ty 1 TABLET BY 1 TABLET BY TAKE 1 [facility] MOUTH WITH MOUTH WITH TABLET BY l BREAKFAST, BREAKFAST, MOUTH WITH Clinics THEN TAKE 2 THEN TAKE 2 BREAKFAST, TABLETS TABLETS THEN TAKE WITH WITH 2 TABLETS DINNER. DINNER. WITH DINNER. isosorbide isosorbide No isosorbide [facility] mononitrate mononitrate mononitrat Communi ER 30 mg ER 30 mg e ER 30 mg t y tablet,exte tablet,exte tablet,ext [facility]osp[facility] nded nded ended l release 24 release 24 release 24 Clinics hr TAKE 1 hr TAKE 1 hr TAKE 1 TABLET BY TABLET BY TABLET BY MOUTH EVERY MOUTH EVERY MOUTH DAY DAY EVERY DAY Klor-Con 10 Klor-Con 10 No Klor-Con [facility] mEq mEq 10 mEq [facility] tablet,exte tablet,exte tablet,ext ty nded nded ended [facility]osp[facility] release release release l TAKE 1 TAKE 1 TAKE 1 Clinics TABLET BY TABLET BY TABLET BY MOUTH EVERY MOUTH EVERY MOUTH DAY WITH DAY WITH EVERY DAY FOOD FOOD WITH FOOD levothyroxi levothyroxi No levothyrox [facility] ne 112 mcg ne 112 mcg ine 112 Communi tablet TAKE tablet TAKE mcg tablet ty 1 TABLET BY 1 TABLET BY TAKE 1 [facility]ospita MOUTH ONCE MOUTH ONCE TABLET BY l DAILY 1/2 DAILY 1/2 MOUTH ONCE Clinics HOUR BEFOR HOUR BEFOR DAILY 1/2 BREKFAST BREKFAST HOUR BEFOR WITH WATER WITH WATER BREKFAST WITH WATER lidocaine 5 lidocaine 5 No lidocaine [facility] % topical % topical 5 % Commu ni patch APPLY patch APPLY topical ty 1 PATCH BY 1 PATCH BY patch [facility] TOPICAL TOPICAL APPLY 1 l ROUTE ONCE ROUTE ONCE PATCH BY Clinics DAILY (MAY DAILY (MAY TOPICAL WEAR UP TO WEAR UP TO ROUTE ONCE 12HOURS.) 12HOURS.) DAILY (MAY WEAR UP TO 12HOURS.) liothyronin liothyronin No liothyroni [facility] e 5 mcg e 5 mcg ne [...] WATER losartan 50 losartan 50 No losartan [facility] mg tablet mg tablet 50 mg Comm uni TAKE 1 TAKE 1 tablet ty TABLET BY TABLET BY TAKE 1 [facility] MOUTH EVERY MOUTH EVERY TABLET BY l DAY FOR 90 DAY FOR 90 MOUTH Cl inics DAYS DAYS EVERY DAY FOR 90 DAYS mirtazapine mirtazapine No mirtazapin [facility] 15 mg 15 mg e 15 mg Communi tablet TAKE tablet TAKE tablet ty 1 TABLET BY 1 TABLET BY TAKE 1 [facility]ospita MOUTH MOUTH TABLET BY l EVERYDAY AT EVERYDAY AT MOUTH Clinics BEDTIME BEDTIME EVERYDAY AT BEDTIME mupirocin 2 mupirocin 2 No mupirocin [facility] % topical % topical 2 % Commu [...] DAY NEEDED nitroglycer nitroglycer No 1 nitroglyce [facility] in 0.4 mg in 0.4 mg rin 0.4 mg Communi sublingual sublingual sublingual ty tablet tablet tablet Hospita Place [address] 1 l tablet as tablet as tablet as Clinics needed by needed by needed by sublingual sublingual sublingual route. route. route. omeprazole omeprazole No omeprazole [facility] 40 mg 40 mg 40 mg Communi [...] DAY l Clinics potassium potassium No potassium [facility] chloride ER chloride ER chloride Communi 20 mEq 20 mEq ER 20 mEq ty tablet,exte tablet,exte tablet,ext [facility]ospita nded nded ended l release(par release(par release(pa Clinics t/cryst) t/cryst) rt/cryst) TAKE 1 TAKE 1 TAKE 1 TABLET BY TABLET BY TABLET BY MOUTH EVERY MOUTH EVERY MOUTH DAY DAY EVERY DAY Santyl 250 Santyl 250 No Santyl 250 [facility] unit/gram unit/gram unit/gram [facility] topical topical topical ty ointment ointment ointment [facility] APPLY A APPLY A APPLY A l [facility] THICK THICK THICK AMOUNT TO AMOUNT TO AMOUNT TO WOUND 3 WOUND 3 WOUND 3 TIMES A TIMES A TIMES A WEEK WEEK WEEK sotalol 160 sotalol 160 No sotalol [facility] mg tablet mg tablet 160 mg Com raz TAKE 1 TAKE 1 tablet ty TABLET BY TABLET BY TAKE 1 [facility] MOUTH EVERY MOUTH EVERY TABLET BY l 12 HOURS 12 HOURS MOUTH Clinic s FOR 90 DAYS FOR 90 DAYS EVERY 12 HOURS FOR 90 DAYS tramadol 50 tramadol 50 No tramadol [facility] mg tablet mg tablet 50 mg Comm uni TAKE 1 TAKE 1 tablet ty TABLET BY TABLET BY TAKE 1 [facility] MOUTH EVERY MOUTH EVERY TABLET BY l 12 HOURS 12 HOURS MOUTH Clinics NEEDED FOR NEEDED FOR EVERY 12 PAIN PAIN HOURS NEEDED FOR PAIN amlodipine amlodipine No amlodipine [facility] 5 mg tablet 5 mg tablet 5 mg [facility] TAKE 1 TAKE 1 tablet ty TABLET BY TABLET BY TAKE 1 [facility] MOUTH EVERY MOUTH EVERY TABLET BY l DAY FOR 90 DAY FOR 90 MOUTH Cl inics DAYS DAYS EVERY DAY FOR 90 DAYS atorvastati atorvastati No atorvastat [facility] n 20 mg n 20 mg in 20 mg Commu ni tablet TAKE tablet TAKE tablet ty 1 TABLET BY 1 TABLET BY TAKE 1 [facility]ospita MOUTH EVERY MOUTH EVERY TABLET BY l DAY DAY MOUTH Clinics EVERY DAY BD [facility] 2nd BD [facility] 2nd No BD Kalee [facility] Gen Pen Gen Pen 2nd Gen Commun [...] EVERY 12 HOURS cholecalcif cholecalcif No cholecalci [facility] ghada ghada ferol Communi (vitamin (vitamin (vitamin ty D3) 1,250 D3) 1,250 D3) 1,250 [facility]osp[facility] mcg (50,000 mcg (50,000 mcg l unit) unit) (50,000 Clinics capsule capsule unit) TAKE 1 TAKE 1 capsule CAPSULE BY CAPSULE BY TAKE 1 MOUTH EVERY MOUTH EVERY CAPSULE BY 15 DAYS 15 DAYS MOUTH EVERY 15 DAYS ciprofloxac ciprofloxac No ciprofloxa [facility] in 500 mg in 500 mg anuj 500 mg Communi tablet tablet tablet ty [facility]osp[facility] l Clinics clonazepam clonazepam No clonazepam [facility] 0.5 mg 0.5 mg 0.5 mg Communi [...] DAY EVERY DAY doxycycline doxycycline No doxycyclin [facility] hyclate 100 hyclate 100 e hyclate Communi mg capsule mg capsule 100 mg t y TAKE 1 TAKE 1 capsule [facility]ospita CAPSULE BY CAPSULE BY TAKE 1 l MOUTH TWICE MOUTH TWICE CAPSULE BY Clinics A DAY A DAY MOUTH TWICE A DAY famotidine famotidine No famotidine [facility] 20 mg 20 mg 20 mg [facility] tablet TAKE tablet TAKE tablet ty 1 TABLET BY 1 TABLET BY TAKE 1 [facility]osp[facility] MOUTH EVERY MOUTH EVERY TABLET BY l DAY DAY MOUTH Clinics EVERY DAY gabapentin gabapentin No gabapentin [facility] 100 mg 100 mg 100 mg Communi capsule capsule capsule ty TAKE 1 TAKE 1 TAKE 1 [facility]ita CAPSULE BY CAPSULE BY CAPSULE BY l MOUTH AT MOUTH AT MOUTH AT Cli nics BEDTIME BEDTIME BEDTIME glipizide glipizide No glipizide [facility] ER 2.5 mg ER 2.5 mg ER [...] BREAKFAST Humatrope 6 Humatrope 6 No Humatrope [facility] mg (18 mg (18 6 mg (18 Communi unit) unit) unit) ty injection injection injection [facility] cartridge cartridge cartridge l INJECT INJECT INJECT [facility] 0.3MG 0.3MG 0.3MG SUBCUTANEOU SUBCUTANEOU SUBCUTANEO SLY ONCE A SLY ONCE A USLY ONCE DAY. DAY. A DAY. hydrocodone hydrocodone No hydrocodon [facility] 5 5 e 5 Communi mg-acetamin mg-acetamin mg-acetami ty ophen 325 ophen 325 nophen 325 [facility]osp[facility] mg tablet mg tablet mg tablet l Clinics hydrocortis hydrocortis No hydrocorti [facility] one 20 mg one 20 mg sone 20 mg [facility] tablet TAKE tablet TAKE tablet ty 1 TABLET BY 1 TABLET BY TAKE 1 [facility] MOUTH WITH MOUTH WITH TABLET BY l BREAKFAST, BREAKFAST, MOUTH WITH Clinics THEN TAKE 2 THEN TAKE 2 BREAKFAST, TABLETS TABLETS THEN TAKE WITH WITH 2 TABLETS DINNER. DINNER. WITH DINNER. hydrocortis hydrocortis No hydrocorti [facility] one 5 mg one 5 mg sone [...] MOUTH EVERY EVENING isosorbide isosorbide No isosorbide [facility] mononitrate mononitrate mononitrat Communi ER 30 mg ER 30 mg e ER 30 mg t y tablet,exte tablet,exte tablet,ext [facility]ospita nded nded ended l release 24 release 24 release 24 Clinics hr TAKE 1 hr TAKE 1 hr TAKE 1 TABLET BY TABLET BY TABLET BY MOUTH EVERY MOUTH EVERY MOUTH DAY DAY EVERY DAY Klor-Con 10 Klor-Con 10 No Klor-Con [facility] mEq mEq 10 mEq Communi tablet,exte tablet,exte tablet,ext ty nded nded ended [facility]osp[facility] release release release l TAKE 1 TAKE 1 TAKE 1 Clinics TABLET BY TABLET BY TABLET BY MOUTH EVERY MOUTH EVERY MOUTH DAY WITH DAY WITH EVERY DAY FOOD FOOD WITH FOOD levothyroxi levothyroxi No levothyrox [facility] ne 112 mcg ne 112 mcg ine 112 Communi tablet TAKE tablet TAKE mcg tablet ty 1 TABLET BY 1 TABLET BY TAKE 1 [facility]osp[facility] MOUTH EVERY MOUTH EVERY TABLET BY l DAY DAY MOUTH Clinics EVERY DAY lidocaine 5 lidocaine 5 No lidocaine [facility] % topical % topical 5 % Commu ni patch APPLY patch APPLY topical ty 1 PATCH BY 1 PATCH BY patch [facility] TOPICAL TOPICAL APPLY 1 l ROUTE ONCE ROUTE ONCE PATCH BY Clinics DAILY (MAY DAILY (MAY TOPICAL WEAR UP TO WEAR UP TO ROUTE ONCE 12HOURS.) 12HOURS.) DAILY (MAY WEAR UP TO 12HOURS.) liothyronin liothyronin No liothyroni [facility] e 5 mcg e 5 mcg ne [...] WATER losartan 50 losartan 50 No losartan [facility] mg tablet mg tablet 50 mg Comm uni TAKE 1 TAKE 1 tablet ty TABLET BY TABLET BY TAKE 1 [facility] MOUTH EVERY MOUTH EVERY TABLET BY l DAY FOR 90 DAY FOR 90 MOUTH Cl inics DAYS DAYS EVERY DAY FOR 90 DAYS mirtazapine mirtazapine No mirtazapin [facility] 15 mg 15 mg e 15 mg Communi tablet TAKE tablet TAKE tablet ty 1 TABLET BY 1 TABLET BY TAKE 1 [facility]ospita MOUTH MOUTH TABLET BY l EVERYDAY AT EVERYDAY AT MOUTH Clinics BEDTIME BEDTIME EVERYDAY AT BEDTIME mupirocin 2 mupirocin 2 No mupirocin [facility] % topical % topical 2 % Commu [...] DAY NEEDED nitroglycer nitroglycer No 1 nitroglyce [facility] in 0.4 mg in 0.4 mg rin 0.4 mg Communi sublingual sublingual sublingual ty tablet tablet tablet Hosp[facility] Place [address] 1 l tablet as tablet as tablet as Clinics needed by needed by needed by sublingual sublingual sublingual route. route. route. omeprazole omeprazole No omeprazole [facility] 40 mg 40 mg 40 mg Communi [...] DAY l Clinics potassium potassium No potassium [facility] chloride ER chloride ER chloride Communi 20 mEq 20 mEq ER 20 mEq ty tablet,exte tablet,exte tablet,ext [facility]osp[facility] nded nded ended l release(par release(par release(pa Clinics t/cryst) t/cryst) rt/cryst) TAKE 1 TAKE 1 TAKE 1 TABLET BY TABLET BY TABLET BY MOUTH EVERY MOUTH EVERY MOUTH DAY DAY EVERY DAY Santyl 250 Santyl 250 No Santyl 250 [facility] unit/gram unit/gram unit/gram [facility] topical topical topical ty ointment ointment ointment [facility] APPLY A APPLY A APPLY A l DIONY DIONY DIONY [facility] THICK THICK THICK AMOUNT TO AMOUNT TO AMOUNT TO WOUND 3 WOUND 3 WOUND 3 TIMES A TIMES A TIMES A WEEK WEEK WEEK sotalol 160 sotalol 160 No sotalol [facility] mg tablet mg tablet 160 mg Com raz TAKE 1 TAKE 1 tablet ty TABLET BY TABLET BY TAKE 1 [facility] MOUTH EVERY MOUTH EVERY TABLET BY l 12 HOURS 12 HOURS MOUTH Clinic s FOR 90 DAYS FOR 90 DAYS EVERY 12 HOURS FOR 90 DAYS sotalol 80 sotalol 80 No sotalol 80 [facility] mg tablet mg tablet mg tablet Communi TAKE 1 TAKE 1 TAKE 1 ty TABLET BY TABLET BY TABLET BY [facility]ospita MOUTH EVERY MOUTH EVERY MOUTH l DAY DAY EVERY DAY Clinics tramadol 50 tramadol 50 No tramadol [facility] mg tablet mg tablet 50 mg Comm uni TAKE 1 TAKE 1 tablet ty TABLET BY TABLET BY TAKE 1 [facility] MOUTH EVERY MOUTH EVERY TABLET BY l 12 HOURS 12 HOURS MOUTH Clinics NEEDED FOR NEEDED FOR EVERY 12 PAIN PAIN HOURS NEEDED FOR PAIN amlodipine amlodipine No amlodipine [facility] 5 mg tablet 5 mg tablet 5 mg [facility] TAKE 1 TAKE 1 tablet ty TABLET BY TABLET BY TAKE 1 [facility] MOUTH EVERY MOUTH EVERY TABLET BY l DAY FOR 90 DAY FOR 90 MOUTH Cl inics DAYS DAYS EVERY DAY FOR 90 DAYS atorvastati atorvastati No atorvastat [facility] n 20 mg n 20 mg in 20 mg Commu ni tablet TAKE tablet TAKE tablet ty 1 TABLET BY 1 TABLET BY TAKE 1 [facility]ospita MOUTH EVERY MOUTH EVERY TABLET BY l DAY DAY MOUTH Clinics EVERY DAY BD [place] 2nd BD [facility] 2nd No BD Kalee [place] Gen Pen Gen Pen 2nd Gen Commun [...] EVERY 12 HOURS cholecalcif cholecalcif No cholecalci [facility] ghada ghada ferol Communi (vitamin (vitamin (vitamin ty D3) 1,250 D3) 1,250 D3) 1,250 [facility]osp[facility] mcg (50,000 mcg (50,000 mcg l unit) unit) (50,000 Clinics capsule capsule unit) TAKE 1 TAKE 1 capsule CAPSULE BY CAPSULE BY TAKE 1 MOUTH EVERY MOUTH EVERY CAPSULE BY 15 DAYS 15 DAYS MOUTH EVERY 15 DAYS ciprofloxac ciprofloxac No ciprofloxa [facility] in 500 mg in 500 mg anuj 500 mg Communi tablet tablet tablet ty [facility] l Clinics clonazepam clonazepam No clonazepam [facility] 0.5 mg 0.5 mg 0.5 mg Communi [...] DAY EVERY DAY doxycycline doxycycline No doxycyclin [place] hyclate 100 hyclate 100 e hyclate Communi mg capsule mg capsule 100 mg t y TAKE 1 TAKE 1 capsule [facility] CAPSULE BY CAPSULE BY TAKE 1 l MOUTH TWICE MOUTH TWICE CAPSULE BY Clinics A DAY A DAY MOUTH TWICE A DAY famotidine famotidine No famotidine [facility] 20 mg 20 mg 20 mg [facility]i tablet TAKE tablet TAKE tablet ty 1 TABLET BY 1 TABLET BY TAKE 1 [facility]ospita MOUTH EVERY MOUTH EVERY TABLET BY l DAY DAY MOUTH Clinics EVERY DAY gabapentin gabapentin No gabapentin [facility] 100 mg 100 mg 100 mg Communi capsule capsule capsule ty TAKE 1 TAKE 1 TAKE 1 [facility] CAPSULE BY CAPSULE BY CAPSULE BY l MOUTH AT MOUTH AT MOUTH AT Cli nics BEDTIME BEDTIME BEDTIME glipizide glipizide No glipizide [facility] ER 2.5 mg ER 2.5 mg ER [...] BREAKFAST Humatrope 6 Humatrope 6 No Humatrope [facility] mg (18 mg (18 6 mg (18 Communi unit) unit) unit) ty injection injection injection [facility] cartridge cartridge cartridge l INJECT INJECT INJECT Clinics 0.3MG 0.3MG 0.3MG SUBCUTANEOU SUBCUTANEOU SUBCUTANEO SLY ONCE A SLY ONCE A USLY ONCE DAY. DAY. A DAY. hydrocodone hydrocodone No hydrocodon [facility] 5 5 e 5 Communi mg-acetamin mg-acetamin mg-acetami ty ophen 325 ophen 325 nophen 325 [facility] mg tablet mg tablet mg tablet l Clinics hydrocortis hydrocortis No hydrocorti [place] one 20 mg one 20 mg sone 20 mg [facility] tablet TAKE tablet TAKE tablet ty 1 TABLET BY 1 TABLET BY TAKE 1 [facility]osp[facility] MOUTH WITH MOUTH WITH TABLET BY l BREAKFAST, BREAKFAST, MOUTH WITH Clinics THEN TAKE 2 THEN TAKE 2 BREAKFAST, TABLETS TABLETS THEN TAKE WITH WITH 2 TABLETS DINNER. DINNER. WITH DINNER. hydrocortis hydrocortis No hydrocorti [place] one 5 mg one 5 mg sone [...] MOUTH EVERY EVENING isosorbide isosorbide No isosorbide [facility] mononitrate mononitrate mononitrat Communi ER 30 mg ER 30 mg e ER 30 mg t y tablet,exte tablet,exte tablet,ext [facility]ospita nded nded ended l release 24 release 24 release 24 Clinics hr TAKE 1 hr TAKE 1 hr TAKE 1 TABLET BY TABLET BY TABLET BY MOUTH EVERY MOUTH EVERY MOUTH DAY DAY EVERY DAY Klor-Con 10 Klor-Con 10 No Klor-Con [facility] mEq mEq 10 mEq Commun[facility] tablet,exte tablet,exte tablet,ext ty nded nded ended [facility]osp[facility] release release release l TAKE 1 TAKE 1 TAKE 1 Clinics TABLET BY TABLET BY TABLET BY MOUTH EVERY MOUTH EVERY MOUTH DAY WITH DAY WITH EVERY DAY FOOD FOOD WITH FOOD levothyroxi levothyroxi No levothyrox [facility] ne 112 mcg ne 112 mcg ine 112 Communi tablet TAKE tablet TAKE mcg tablet ty 1 TABLET BY 1 TABLET BY TAKE 1 [facility]ospita MOUTH EVERY MOUTH EVERY TABLET BY l DAY DAY MOUTH Clinics EVERY DAY lidocaine 5 lidocaine 5 No lidocaine [place] % topical % topical 5 % Commu ni patch APPLY patch APPLY topical ty 1 PATCH BY 1 PATCH BY patch [facility] TOPICAL TOPICAL APPLY 1 l ROUTE ONCE ROUTE ONCE PATCH BY Clinics DAILY (MAY DAILY (MAY TOPICAL WEAR UP TO WEAR UP TO ROUTE ONCE 12HOURS.) 12HOURS.) DAILY (MAY WEAR UP TO 12HOURS.) liothyronin liothyronin No liothyroni [place] e 5 mcg e 5 mcg ne [...] WATER losartan 50 losartan 50 No losartan [facility] mg tablet mg tablet 50 mg Comm uni TAKE 1 TAKE 1 tablet ty TABLET BY TABLET BY TAKE 1 [facility] MOUTH EVERY MOUTH EVERY TABLET BY l DAY FOR 90 DAY FOR 90 MOUTH Cl inics DAYS DAYS EVERY DAY FOR 90 DAYS mirtazapine mirtazapine No mirtazapin [facility] 15 mg 15 mg e 15 mg Communi tablet TAKE tablet TAKE tablet ty 1 TABLET BY 1 TABLET BY TAKE 1 [facility]ospita MOUTH MOUTH TABLET BY l EVERYDAY AT EVERYDAY AT MOUTH Clinics BEDTIME BEDTIME EVERYDAY AT BEDTIME mupirocin 2 mupirocin 2 No mupirocin [facility] % topical % topical 2 % Commu [...] DAY NEEDED nitroglycer nitroglycer No 1 nitroglyce [facility] in 0.4 mg in 0.4 mg rin 0.4 mg Communi sublingual sublingual sublingual ty tablet tablet tablet Hosp[facility] Place [address] 1 l tablet as tablet as tablet as Clinics needed by needed by needed by sublingual sublingual sublingual route. route. route. omeprazole omeprazole No omeprazole [facility] 40 mg 40 mg 40 mg Communi [...] DAY l Clinics potassium potassium No potassium [facility] chloride ER chloride ER chloride Communi 20 mEq 20 mEq ER 20 mEq ty tablet,exte tablet,exte tablet,ext [facility]ospita nded nded ended l release(par release(par release(nc Clinics t/cryst) t/cryst) rt/cryst) TAKE 1 TAKE 1 TAKE 1 TABLET BY TABLET BY TABLET BY MOUTH EVERY MOUTH EVERY MOUTH DAY DAY EVERY DAY Santyl 250 Santyl 250 No Santyl 250 [place] unit/gram unit/gram unit/gram [facility] topical topical topical ty ointment ointment ointment [facility] APPLY A APPLY A APPLY A l [facility] THICK THICK THICK AMOUNT TO AMOUNT TO AMOUNT TO WOUND 3 WOUND 3 WOUND 3 TIMES A TIMES A TIMES A WEEK WEEK WEEK sotalol 160 sotalol 160 No sotalol [place] mg tablet mg tablet 160 mg Com raz TAKE 1 TAKE 1 tablet ty TABLET BY TABLET BY TAKE 1 [facility] MOUTH EVERY MOUTH EVERY TABLET BY l 12 HOURS 12 HOURS MOUTH Clinic s FOR 90 DAYS FOR 90 DAYS EVERY 12 HOURS FOR 90 DAYS sotalol 80 sotalol 80 No sotalol 80 [place] mg tablet mg tablet mg tablet [facility] TAKE 1 TAKE 1 TAKE 1 ty TABLET BY TABLET BY TABLET BY Hospita MOUTH EVERY MOUTH EVERY MOUTH l DAY DAY EVERY DAY Clinics tramadol 50 tramadol 50 No tramadol [place] mg tablet mg tablet 50 mg Comm uni TAKE 1 TAKE 1 tablet ty TABLET BY TABLET BY TAKE 1 [facility] MOUTH EVERY MOUTH EVERY TABLET BY l 12 HOURS 12 HOURS MOUTH Clinics NEEDED FOR NEEDED FOR EVERY 12 PAIN PAIN HOURS NEEDED FOR PAIN amlodipine amlodipine No amlodipine [place] 5 mg tablet 5 mg tablet 5 mg [facility] TAKE 1 TAKE 1 tablet ty TABLET BY TABLET BY TAKE 1 [facility] MOUTH EVERY MOUTH EVERY TABLET BY l DAY FOR 90 DAY FOR 90 MOUTH Cl inics DAYS DAYS EVERY DAY FOR 90 DAYS atorvastati atorvastati No atorvastat [place] n 20 mg n 20 mg in 20 mg Commu ni tablet TAKE tablet TAKE tablet ty 1 TABLET BY 1 TABLET BY TAKE 1 Hospita MOUTH EVERY MOUTH EVERY TABLET BY l DAY DAY MOUTH Clinics EVERY DAY BD [facility] 2nd BD [facility] 2nd No BD [facility] [place] Gen Pen Gen Pen 2nd Gen Commun i Needle 32 Needle 32 Pen Needle ty gauge x gauge x 32 gauge x [facility] 5/32" USE 5/32" USE 5/32" USE l ONE TIME A ONE TIME A ONE TIME A Clinics DAY DAY DAY cholecalcif cholecalcif No cholecalci [place] ghada ghada ferol [place] (vitamin (vitamin (vitamin ty D3) 1,250 D3) 1,250 D3) 1,250 Hospita mcg (50,000 mcg (50,000 mcg l unit) unit) (50,000 Clinics capsule capsule unit) TAKE 1 TAKE 1 capsule CAPSULE BY CAPSULE BY TAKE 1 MOUTH EVERY MOUTH EVERY CAPSULE BY 15 DAYS 15 DAYS MOUTH EVERY 15 DAYS glipizide glipizide No glipizide [place] ER 2.5 mg ER 2.5 mg ER 2.5 mg [place] tablet, tablet, tablet, ty extended extended extended [facility] release 24 release 24 release 24 l hr TAKE 2 hr TAKE 2 hr TAKE 2 Clinics TABLETS (5 TABLETS (5 TABLETS (5 MG) BY MG) BY MG) BY MOUTH DAILY MOUTH DAILY MOUTH WITH WITH DAILY WITH BREAKFAST BREAKFAST BREAKFAST Humatrope 6 Humatrope 6 No Humatrope [place] mg (18 mg (18 6 mg (18 [facility] unit) unit) unit) ty injection injection injection [facility] cartridge cartridge cartridge l INJECT INJECT INJECT Clinics 0.3MG 0.3MG 0.3MG SUBCUTANEOU SUBCUTANEOU SUBCUTANEO SLY ONCE A SLY ONCE A USLY ONCE DAY. DAY. A DAY. hydrocortis hydrocortis No hydrocorti [place] one 20 mg one 20 mg sone 20 mg [facility] tablet TAKE tablet TAKE tablet ty 1 TABLET BY 1 TABLET BY TAKE 1 Hospita MOUTH WITH MOUTH WITH TABLET BY l BREAKFAST BREAKFAST MOUTH WITH Clinics AND 2 AND 2 BREAKFAST TABLETS TABLETS AND 2 WITH WITH TABLETS DINNER. DINNER. WITH DINNER. levothyroxi levothyroxi No levothyrox [place] ne 112 mcg ne 112 mcg ine 112 [facility] tablet TAKE tablet TAKE mcg tablet ty 1 TABLET BY 1 TABLET BY TAKE 1 Hospita MOUTH DAILY MOUTH DAILY TABLET BY l 1/2 HOUR 1/2 HOUR MOUTH Clinic s BEFORE BEFORE DAILY 1/2 BREAKFAST BREAKFAST HOUR WITH WATER WITH WATER BEFORE BREAKFAST WITH WATER liothyronin liothyronin No liothyroni [place] e 5 mcg e 5 mcg ne [...] WITH WATER nitroglycer nitroglycer No 1 nitroglyce [place] in 0.4 mg in 0.4 mg rin 0.4 mg [facility] sublingual sublingual sublingual ty tablet tablet tablet Hospita Place [address] 1 l tablet as tablet as tablet as Clinics needed by needed by needed by sublingual sublingual sublingual route. route. route. omeprazole omeprazole No omeprazole [place] 40 mg 40 mg 40 mg Communi [...] l DAILY Clinics potassium potassium No potassium [place] chloride ER chloride ER chloride [facility] 10 mEq 10 mEq ER 10 mEq ty tablet,exte tablet,exte tablet,ext Hospita nded nded ended l release release release Clinic s TAKE 1 TAKE 1 TAKE 1 TABLET BY TABLET BY TABLET BY MOUTH EVERY MOUTH EVERY MOUTH DAY WITH DAY WITH EVERY DAY FOOD FOOD WITH FOOD tramadol 50 tramadol 50 No tramadol [place] mg tablet mg tablet 50 mg Comm uni TAKE 1 TAKE 1 tablet ty TABLET BY TABLET BY TAKE 1 [facility] MOUTH EVERY MOUTH EVERY TABLET BY l 12 HOURS 12 HOURS MOUTH Clinics NEEDED FOR NEEDED FOR EVERY 12 PAIN PAIN HOURS NEEDED FOR PAIN trazodone trazodone No 1 Q1D trazodone [place] 50 mg 50 mg 50 mg [facility] tablet Take tablet Take tablet ty 1 tablet 1 tablet Take 1 Hospi ta every day every day tablet l by oral by oral every day Clin ics route. route. by oral route. amlodipine amlodipine No amlodipine [place] 5 mg tablet 5 mg tablet 5 mg [facility] TAKE 1 TAKE 1 tablet ty TABLET BY TABLET BY TAKE 1 [facility] MOUTH EVERY MOUTH EVERY TABLET BY l DAY FOR 90 DAY FOR 90 MOUTH Cl inics DAYS DAYS EVERY DAY FOR 90 DAYS atorvastati atorvastati No atorvastat [place] n 20 mg n 20 mg in 20 mg Commu ni tablet TAKE tablet TAKE tablet ty 1 TABLET BY 1 TABLET BY TAKE 1 Hospita MOUTH EVERY MOUTH EVERY TABLET BY l DAY DAY MOUTH Clinics EVERY DAY BD [place] 2nd BD [facility] 2nd No BD [facility] [place] Gen Pen Gen Pen 2nd Gen Commun i Needle 32 Needle 32 Pen Needle ty gauge x gauge x 32 gauge x [facility] " USE " USE " USE l ONE TIME A ONE TIME A ONE TIME A Clinics DAY DAY DAY cholecalcif cholecalcif No cholecalci [place] ghada ghada ferol [facility] (vitamin (vitamin (vitamin ty D3) 1,250 D3) 1,250 D3) 1,250 [facility]ospita mcg (50,000 mcg (50,000 mcg l unit) unit) (50,000 Clinics capsule capsule unit) TAKE 1 TAKE 1 capsule CAPSULE BY CAPSULE BY TAKE 1 MOUTH EVERY MOUTH EVERY CAPSULE BY 15 DAYS 15 DAYS MOUTH EVERY 15 DAYS glipizide glipizide No glipizide [place] ER 2.5 mg ER 2.5 mg ER [...] BREAKFAST Humatrope 6 Humatrope 6 No Humatrope [place] mg (18 mg (18 6 mg (18 [facility] unit) unit) unit) ty injection injection injection [facility] cartridge cartridge cartridge l INJECT INJECT INJECT [facility] 0.3MG 0.3MG 0.3MG SUBCUTANEOU SUBCUTANEOU SUBCUTANEO SLY ONCE A SLY ONCE A USLY ONCE DAY. DAY. A DAY. hydrocortis hydrocortis No hydrocorti [place] one 20 mg one 20 mg sone 20 mg [facility] tablet TAKE tablet TAKE tablet ty 1 TABLET BY 1 TABLET BY TAKE 1 Hospita MOUTH WITH MOUTH WITH TABLET BY l BREAKFAST BREAKFAST MOUTH WITH Clinics AND 2 AND 2 BREAKFAST TABLETS TABLETS AND 2 WITH WITH TABLETS DINNER. DINNER. WITH DINNER. levothyroxi levothyroxi No levothyrox [place] ne 112 mcg ne 112 mcg ine 112 [facility] tablet TAKE tablet TAKE mcg tablet ty 1 TABLET BY 1 TABLET BY TAKE 1 Hospita MOUTH DAILY MOUTH DAILY TABLET BY l 1/2 HOUR 1/2 HOUR MOUTH Clinic s BEFORE BEFORE DAILY 1/2 BREAKFAST BREAKFAST HOUR WITH WATER WITH WATER BEFORE BREAKFAST WITH WATER liothyronin liothyronin No liothyroni [place] e 5 mcg e 5 mcg ne 5 mcg Commu ni tablet TAKE tablet TAKE tablet ty 2 TABS BY 2 TABS BY TAKE 2 [facility] MOUTH TUES, MOUTH TUES, TABS BY l THURS, SAT, THURS, SAT, MOUTH Clinics SUN & 1 TAB SUN & 1 TAB TUES, MON, WED, MON, WED, THURS, FRI HALF HR FRI HALF HR SAT, SUN & BEFORE BEFORE 1 TAB MON, BREAKFAST BREAKFAST WED, FRI WITH WATER WITH WATER HALF HR BEFORE BREAKFAST WITH WATER nitroglycer nitroglycer No 1 nitroglyce [place] in 0.4 mg in 0.4 mg rin 0.4 mg [facility] sublingual sublingual sublingual ty tablet tablet tablet Hospita Place [address] 1 l tablet as tablet as tablet as Clinics needed by needed by needed by sublingual sublingual sublingual route. route. route. omeprazole omeprazole No omeprazole [place] 40 mg 40 mg 40 mg Communi [...] l DAILY Clinics potassium potassium No potassium [place] chloride ER chloride ER chloride [facility] 10 mEq 10 mEq ER 10 mEq ty tablet,exte tablet,exte tablet,ext [facility]ospita nded nded ended l release release release Clinic s TAKE 1 TAKE 1 TAKE 1 TABLET BY TABLET BY TABLET BY MOUTH EVERY MOUTH EVERY MOUTH DAY WITH DAY WITH EVERY DAY FOOD FOOD WITH FOOD tizanidine tizanidine No 1 Q1D tizanidine [place] 2 mg tablet 2 mg tablet 2 mg [facility] Take 1 Take 1 tablet ty tablet tablet Take 1 Hospita every day every day tablet l by oral by oral every day Clin ics route. route. by oral route. tramadol 50 tramadol 50 No tramadol [place] mg tablet mg tablet 50 mg Comm uni TAKE 1 TAKE 1 tablet ty TABLET BY TABLET BY TAKE 1 [facility] MOUTH EVERY MOUTH EVERY TABLET BY l 12 HOURS 12 HOURS MOUTH Clinics NEEDED FOR NEEDED FOR EVERY 12 PAIN PAIN HOURS NEEDED FOR PAIN trazodone trazodone No trazodone [place] 50 mg 50 mg 50 mg [facility] tablet TAKE tablet TAKE tablet ty 1 TABLET BY 1 TABLET BY TAKE 1 Hospita MOUTH EVERY MOUTH EVERY TABLET BY l DAY DAY MOUTH Clinics EVERY DAY amlodipine amlodipine No amlodipine [place] 5 mg tablet 5 mg tablet 5 mg [facility] TAKE 1 TAKE 1 tablet ty TABLET BY TABLET BY TAKE 1 [facility] MOUTH EVERY MOUTH EVERY TABLET BY l DAY FOR 90 DAY FOR 90 MOUTH Cl inics DAYS DAYS EVERY DAY FOR 90 DAYS atorvastati atorvastati No atorvastat [place] n 20 mg n 20 mg in 20 mg Commu ni tablet TAKE tablet TAKE tablet ty 1 TABLET BY 1 TABLET BY TAKE 1 Hospita MOUTH EVERY MOUTH EVERY TABLET BY l DAY DAY MOUTH Clinics EVERY DAY BD [place] 2nd BD [facility] 2nd No BD [facility] [place] Gen Pen Gen Pen 2nd Gen Commun i Needle 32 Needle 32 Pen Needle ty gauge x gauge x 32 gauge x [facility] 5/32" USE 5/32" USE 5/32" USE l ONE TIME A ONE TIME A ONE TIME A Clinics DAY DAY DAY cholecalcif cholecalcif No cholecalci [place] ghada ghada ferol [facility] (vitamin (vitamin (vitamin ty D3) 1,250 D3) 1,250 D3) 1,250 [facility]ospita mcg (50,000 mcg (50,000 mcg l unit) unit) (50,000 Clinics capsule capsule unit) TAKE 1 TAKE 1 capsule CAPSULE BY CAPSULE BY TAKE 1 MOUTH EVERY MOUTH EVERY CAPSULE BY 15 DAYS 15 DAYS MOUTH EVERY 15 DAYS glipizide glipizide No glipizide [place] ER 2.5 mg ER 2.5 mg ER 2.5 mg [place] tablet, tablet, tablet, ty extended extended extended [facility] release 24 release 24 release 24 l hr TAKE 2 hr TAKE 2 hr TAKE 2 Clinics TABLETS (5 TABLETS (5 TABLETS (5 MG) BY MG) BY MG) BY MOUTH DAILY MOUTH DAILY MOUTH WITH WITH DAILY WITH BREAKFAST BREAKFAST BREAKFAST Humatrope 6 Humatrope 6 No Humatrope [place] mg (18 mg (18 6 mg (18 [facility] unit) unit) unit) ty injection injection injection [facility] cartridge cartridge cartridge l INJECT INJECT INJECT [facility] 0.3MG 0.3MG 0.3MG SUBCUTANEOU SUBCUTANEOU SUBCUTANEO SLY ONCE A SLY ONCE A USLY ONCE DAY. DAY. A DAY. hydrocortis hydrocortis No hydrocorti [place] one 20 mg one 20 mg sone 20 mg [facility] tablet TAKE tablet TAKE tablet ty 1 TABLET BY 1 TABLET BY TAKE 1 Hospita MOUTH WITH MOUTH WITH TABLET BY l BREAKFAST BREAKFAST MOUTH WITH Clinics AND 2 AND 2 BREAKFAST TABLETS TABLETS AND 2 WITH WITH TABLETS DINNER. DINNER. WITH DINNER. levothyroxi levothyroxi No levothyrox [place] ne 112 mcg ne 112 mcg ine 112 [facility] tablet TAKE tablet TAKE mcg tablet ty 1 TABLET BY 1 TABLET BY TAKE 1 Hospita MOUTH DAILY MOUTH DAILY TABLET BY l 1/2 HOUR 1/2 HOUR MOUTH Clinic s BEFORE BEFORE DAILY 1/2 BREAKFAST BREAKFAST HOUR WITH WATER WITH WATER BEFORE BREAKFAST WITH WATER liothyronin liothyronin No liothyroni [place] e 5 mcg e 5 mcg ne [...] WITH WATER nitroglycer nitroglycer No 1 nitroglyce [place] in 0.4 mg in 0.4 mg rin 0.4 mg [facility] sublingual sublingual sublingual ty tablet tablet tablet Hospita Place [address] 1 l tablet as tablet as tablet as Clinics needed by needed by needed by sublingual sublingual sublingual route. route. route. omeprazole omeprazole No omeprazole [place] 40 mg 40 mg 40 mg Communi [...] l DAILY Clinics potassium potassium No potassium [place] chloride ER chloride ER chloride [facility] 10 mEq 10 mEq ER 10 mEq ty tablet,exte tablet,exte tablet,ext [facility]ospita nded nded ended l release release release Clinic s TAKE 1 TAKE 1 TAKE 1 TABLET BY TABLET BY TABLET BY MOUTH EVERY MOUTH EVERY MOUTH DAY WITH DAY WITH EVERY DAY FOOD FOOD WITH FOOD tizanidine tizanidine No 1 Q1D tizanidine [place] 2 mg tablet 2 mg tablet 2 mg [facility] Take 1 Take 1 tablet ty tablet tablet Take 1 Hospita every day every day tablet l by oral by oral every day Clin ics route. route. by oral route. tramadol 50 tramadol 50 No tramadol [place] mg tablet mg tablet 50 mg Comm uni TAKE 1 TAKE 1 tablet ty TABLET BY TABLET BY TAKE 1 [facility] MOUTH EVERY MOUTH EVERY TABLET BY l 12 HOURS 12 HOURS MOUTH Clinics NEEDED FOR NEEDED FOR EVERY 12 PAIN PAIN HOURS NEEDED FOR PAIN trazodone trazodone No 1 Q1D trazodone [place] 100 mg 100 mg 100 mg [facility] tablet Take tablet Take tablet ty 1 tablet 1 tablet Take 1 Hos[facility] ta every day every day tablet l by oral by oral every day Clin ics route at route at by oral bedtime for bedtime for route at 30 days. 30 days. bedtime for 30 days. trazodone trazodone No trazodone [place] 50 mg 50 mg 50 mg [facility] tablet TAKE tablet TAKE tablet ty 1 TABLET BY 1 TABLET BY TAKE 1 [facility]ospita MOUTH EVERY MOUTH EVERY TABLET BY l DAY DAY MOUTH Clinics EVERY DAY amlodipine amlodipine No amlodipine [place] 5 mg tablet 5 mg tablet 5 mg [facility] TAKE 1 TAKE 1 tablet ty TABLET BY TABLET BY TAKE 1 [facility] MOUTH EVERY MOUTH EVERY TABLET BY l DAY FOR 90 DAY FOR 90 MOUTH Cl inics DAYS DAYS EVERY DAY FOR 90 DAYS atorvastati atorvastati No atorvastat [place] n 20 mg n 20 mg in 20 mg Commu ni tablet TAKE tablet TAKE tablet ty 1 TABLET BY 1 TABLET BY TAKE 1 [facility]ospita MOUTH EVERY MOUTH EVERY TABLET BY l DAY DAY MOUTH Clinics EVERY DAY BD [place] 2nd BD [place] 2nd No BD [facility] [place] Gen Pen Gen Pen 2nd Gen Commun i Needle 32 Needle 32 Pen Needle ty gauge x gauge x 32 gauge x [facility] 5/32" USE 32" USE 5/32" USE l ONE TIME A ONE TIME A ONE TIME A Clinics DAY DAY DAY cholecalcif cholecalcif No cholecalci [place] ghada ghada ferol [facility] (vitamin (vitamin (vitamin ty D3) 1,250 D3) 1,250 D3) 1,250 [facility]osp[facility] mcg (50,000 mcg (50,000 mcg l unit) unit) (50,000 Clinics capsule capsule unit) TAKE 1 TAKE 1 capsule CAPSULE BY CAPSULE BY TAKE 1 MOUTH EVERY MOUTH EVERY CAPSULE BY 15 DAYS 15 DAYS MOUTH EVERY 15 DAYS glipizide glipizide No glipizide [place] ER 2.5 mg ER 2.5 mg ER [...] BREAKFAST Humatrope 6 Humatrope 6 No Humatrope [place] mg (18 mg (18 6 mg (18 [facility] unit) unit) unit) ty injection injection injection [facility] cartridge cartridge cartridge l INJECT INJECT INJECT [facility] 0.3MG 0.3MG 0.3MG SUBCUTANEOU SUBCUTANEOU SUBCUTANEO SLY ONCE A SLY ONCE A USLY ONCE DAY. DAY. A DAY. hydrocortis hydrocortis No hydrocorti [place] one 20 mg one 20 mg sone 20 mg [facility] tablet TAKE tablet TAKE tablet ty 1 TABLET BY 1 TABLET BY TAKE 1 [facility]ospita MOUTH WITH MOUTH WITH TABLET BY l BREAKFAST BREAKFAST MOUTH WITH Clinics AND 2 AND 2 BREAKFAST TABLETS TABLETS AND 2 WITH WITH TABLETS DINNER. DINNER. WITH DINNER. levothyroxi levothyroxi No levothyrox [place] ne 112 mcg ne 112 mcg ine 112 [facility] tablet TAKE tablet TAKE mcg tablet ty 1 TABLET BY 1 TABLET BY TAKE 1 Hospita MOUTH DAILY MOUTH DAILY TABLET BY l 1/2 HOUR 1/2 HOUR MOUTH Clinic s BEFORE BEFORE DAILY 1/2 BREAKFAST BREAKFAST HOUR WITH WATER WITH WATER BEFORE BREAKFAST WITH WATER liothyronin liothyronin No liothyroni [place] e 5 mcg e 5 mcg ne 5 mcg Commu ni tablet TAKE tablet TAKE tablet ty 2 TABS BY 2 TABS BY TAKE 2 [facility] MOUTH TUES, MOUTH TUES, TABS BY l THURS, SAT, THURS, SAT, MOUTH Clinics SUN & 1 TAB SUN & 1 TAB TUES, MON, WED, MON, WED, THURS, FRI HALF HR FRI HALF HR SAT, SUN & BEFORE BEFORE 1 TAB MON, BREAKFAST BREAKFAST TUE, FRI WITH WATER WITH WATER HALF HR BEFORE BREAKFAST WITH WATER nitroglycer nitroglycer No 1 nitroglyce [place] in 0.4 mg in 0.4 mg rin 0.4 mg [facility] sublingual sublingual sublingual ty tablet tablet tablet Hospita Place [address] 1 l tablet as tablet as tablet as Clinics needed by needed by needed by sublingual sublingual sublingual route. route. route. omeprazole omeprazole No omeprazole [place] 40 mg 40 mg 40 mg Communi [...] l DAILY Clinics potassium potassium No potassium [place] chloride ER chloride ER chloride [facility] 10 mEq 10 mEq ER 10 mEq ty tablet,exte tablet,exte tablet,ext [facility]ospita nded nded ended l release release release Clinic s TAKE 1 TAKE 1 TAKE 1 TABLET BY TABLET BY TABLET BY MOUTH EVERY MOUTH EVERY MOUTH DAY WITH DAY WITH EVERY DAY FOOD FOOD WITH FOOD tramadol 50 tramadol 50 No tramadol [place] mg tablet mg tablet 50 mg Comm uni TAKE 1 TAKE 1 tablet ty TABLET BY TABLET BY TAKE 1 [facility] MOUTH EVERY MOUTH EVERY TABLET BY l 12 HOURS 12 HOURS MOUTH Clinics NEEDED FOR NEEDED FOR EVERY 12 PAIN PAIN HOURS NEEDED FOR PAIN amlodipine amlodipine No amlodipine [place] 5 mg tablet 5 mg tablet 5 mg [facility] 1 po qd 1 po qd tablet 1 ty po qd Hospita l Clinics amlodipine amlodipine No amlodipine [place] 5 mg tablet 5 mg tablet 5 mg [facility] TAKE 1 TAKE 1 tablet ty TABLET BY TABLET BY TAKE 1 [facility] MOUTH EVERY MOUTH EVERY TABLET BY l DAY FOR 90 DAY FOR 90 MOUTH Cl inics DAYS DAYS EVERY DAY FOR 90 DAYS atorvastati atorvastati No atorvastat [place] n 20 mg n 20 mg in 20 mg Commu ni tablet TAKE tablet TAKE tablet ty 1 TABLET BY 1 TABLET BY TAKE 1 [facility]ospita MOUTH EVERY MOUTH EVERY TABLET BY l DAY DAY MOUTH Clinics EVERY DAY BD [place] 2nd BD [place] 2nd No BD [facility] [place] Gen Pen Gen Pen 2nd Gen Commun i Needle 32 Needle 32 Pen Needle ty gauge x gauge x 32 gauge x [facility] " USE " USE " USE l ONE TIME A ONE TIME A ONE TIME A Clinics DAY DAY DAY cholecalcif cholecalcif No cholecalci [place] ghada ghada ferol [facility] (vitamin (vitamin (vitamin ty D3) 1,250 D3) 1,250 D3) 1,250 [facility]ospita mcg (50,000 mcg (50,000 mcg l unit) unit) (50,000 Clinics capsule capsule unit) TAKE 1 TAKE 1 capsule CAPSULE BY CAPSULE BY TAKE 1 MOUTH EVERY MOUTH EVERY CAPSULE BY 15 DAYS 15 DAYS MOUTH EVERY 15 DAYS glipizide glipizide No glipizide [place] ER 2.5 mg ER 2.5 mg ER [...] BREAKFAST Humatrope 6 Humatrope 6 No Humatrope [place] mg (18 mg (18 6 mg (18 [facility] unit) unit) unit) ty injection injection injection [facility] cartridge cartridge cartridge l INJECT INJECT INJECT [facility] 0.3MG 0.3MG 0.3MG SUBCUTANEOU SUBCUTANEOU SUBCUTANEO SLY ONCE A SLY ONCE A USLY ONCE DAY. DAY. A DAY. hydrocortis hydrocortis No hydrocorti [place] one 20 mg one 20 mg sone 20 mg [facility] tablet TAKE tablet TAKE tablet ty 1 TABLET BY 1 TABLET BY TAKE 1 [facility]ospita MOUTH WITH MOUTH WITH TABLET BY l BREAKFAST BREAKFAST MOUTH WITH Clinics AND 2 AND 2 BREAKFAST TABLETS TABLETS AND 2 WITH WITH TABLETS DINNER. DINNER. WITH DINNER. levothyroxi levothyroxi No levothyrox [place] ne 112 mcg ne 112 mcg ine 112 [facility] tablet TAKE tablet TAKE mcg tablet ty 1 TABLET BY 1 TABLET BY TAKE 1 [facility]ospita MOUTH DAILY MOUTH DAILY TABLET BY l 1/2 HOUR 1/2 HOUR MOUTH Clinic s BEFORE BEFORE DAILY 1/2 BREAKFAST BREAKFAST HOUR WITH WATER WITH WATER BEFORE BREAKFAST WITH WATER atorvastati atorvastati No atorvastat [place] n 40 mg n 40 mg in 40 mg Commu ni tablet 1 PO tablet 1 PO tablet 1 ty qd qd PO qd Hospita l [facility] liothyronin liothyronin No liothyroni [place] e 5 mcg e 5 mcg ne 5 mcg Commu ni tablet TAKE tablet TAKE tablet ty 2 TABS BY 2 TABS BY TAKE 2 [facility] MOUTH TUES, MOUTH TUES, TABS BY l THURS, SAT, THURS, SAT, MOUTH Clinics SUN & 1 TAB SUN & 1 TAB TUES, MON, WED, MON, WED, THURS, FRI HALF HR FRI HALF HR SAT, SUN & BEFORE BEFORE 1 TAB MON, BREAKFAST BREAKFAST WED, FRI WITH WATER WITH WATER HALF HR BEFORE BREAKFAST WITH WATER nitroglycer nitroglycer No 1 nitroglyce [place] in 0.4 mg in 0.4 mg rin 0.4 mg [facility]i sublingual sublingual sublingual ty tablet tablet tablet [facility]osp[facility] Place [address] 1 l tablet as tablet as tablet as Clinics needed by needed by needed by sublingual sublingual sublingual route. route. route. omeprazole omeprazole No omeprazole [place] 40 mg 40 mg 40 mg Communi [...] l DAILY Clinics potassium potassium No potassium [place] chloride ER chloride ER chloride [facility] 10 mEq 10 mEq ER 10 mEq ty tablet,exte tablet,exte tablet,ext [facility]ospita nded nded ended l release release release Clinic s TAKE 1 TAKE 1 TAKE 1 TABLET BY TABLET BY TABLET BY MOUTH EVERY MOUTH EVERY MOUTH DAY WITH DAY WITH EVERY DAY FOOD FOOD WITH FOOD ramelteon 8 ramelteon 8 No 1 Q1D ramelteon [place] mg tablet mg tablet 8 mg Commu ni Take 1 Take 1 tablet ty tablet tablet Take 1 Hospita every day every day tablet l by oral by oral every day Clin ics route. route. by oral route. tramadol 50 tramadol 50 No tramadol [place] mg tablet mg tablet 50 mg Comm uni TAKE 1 TAKE 1 tablet ty TABLET BY TABLET BY TAKE 1 [facility] MOUTH EVERY MOUTH EVERY TABLET BY l 12 HOURS 12 HOURS MOUTH Clinics NEEDED FOR NEEDED FOR EVERY 12 PAIN PAIN HOURS NEEDED FOR PAIN cholecalcif cholecalcif No cholecalci [place] ghada ghada ferol [facility] (vitamin (vitamin (vitamin ty D3) 1,250 D3) 1,250 D3) 1,250 [facility]ospita mcg (50,000 mcg (50,000 mcg l unit) unit) (50,000 Clinics capsule capsule unit) TAKE 1 TAKE 1 capsule CAPSULE CAPSULE TAKE 1 EVERY 15 EVERY 15 CAPSULE DAYS DAYS EVERY 15 DAYS clonazepam clonazepam No clonazepam [place] 0.5 mg 0.5 mg 0.5 mg [facility] tablet TAKE tablet TAKE tablet ty 1 TABLET BY 1 TABLET BY TAKE 1 Hospita MOUTH TWICE MOUTH TWICE TABLET BY l A DAY A DAY MOUTH Clinic s DIRECTED DIRECTED TWICE A DAY DIRECTED Dexilant 60 Dexilant 60 No Dexilant [place] mg capsule, mg capsule, 60 mg [facility]i delayed delayed capsule, ty release 1 release 1 delayed [facility] po qd po qd release 1 l po qd Clinics amlodipine amlodipine No amlodipine [place] 5 mg tablet 5 mg tablet 5 mg [facility] TAKE 1 TAKE 1 tablet ty TABLET BY TABLET BY TAKE 1 [facility] MOUTH EVERY MOUTH EVERY TABLET BY l DAY FOR 90 DAY FOR 90 MOUTH Cl inics DAYS DAYS EVERY DAY FOR 90 DAYS atorvastati atorvastati No atorvastat [place] n 20 mg n 20 mg in 20 mg Commu ni tablet TAKE tablet TAKE tablet ty 1 TABLET BY 1 TABLET BY TAKE 1 [facility]ospita MOUTH EVERY MOUTH EVERY TABLET BY l DAY DAY MOUTH Clinics EVERY DAY BD [place] 2nd BD [facility] 2nd No BD [facility] [place] Gen Pen Gen Pen 2nd Gen Commun i Needle 32 Needle 32 Pen Needle ty gauge x gauge x 32 gauge x [facility] " USE " USE " USE l TO INJECT 1 TO INJECT 1 TO INJECT Clinics TIME A DAY TIME A DAY 1 TIME A DAY cholecalcif cholecalcif No cholecalci [place] ghada ghada ferol [facility] (vitamin (vitamin (vitamin ty D3) 1,250 D3) 1,250 D3) 1,250 [facility]ospita mcg (50,000 mcg (50,000 mcg l unit) unit) (50,000 Clinics capsule capsule unit) TAKE 1 TAKE 1 capsule CAPSULE BY CAPSULE BY TAKE 1 MOUTH EVERY MOUTH EVERY CAPSULE BY 15 DAYS 15 DAYS MOUTH EVERY 15 DAYS clonazepam clonazepam No clonazepam [place] 0.5 mg 0.5 mg 0.5 mg [facility] tablet TAKE tablet TAKE tablet ty 1 TABLET BY 1 TABLET BY TAKE 1 [facility]ospita MOUTH EVERY MOUTH EVERY TABLET BY l DAY DAY MOUTH Clinics NEEDED NEEDED EVERY DAY NEEDED glipizide glipizide No glipizide [place] ER 2.5 mg ER 2.5 mg ER 2.5 mg [facility] tablet, tablet, tablet, ty extended extended extended [facility] release 24 release 24 release 24 l hr TAKE 1 hr TAKE 1 hr TAKE 1 Clinics TABLET BY TABLET BY TABLET BY MOUTH ONCE MOUTH ONCE MOUTH ONCE EVERY EVERY EVERY Tuesday Humatrope 6 Humatrope 6 No Humatrope [place] mg (18 mg (18 6 mg (18 [facility]i unit) unit) unit) ty injection injection injection [facility] cartridge cartridge cartridge l INJECT INJECT INJECT Clinics 0.3MG 0.3MG 0.3MG SUBCUTANEOU SUBCUTANEOU SUBCUTANEO SLY EVERY SLY EVERY USLY EVERY DAY DAY DAY hydrocortis hydrocortis No hydrocorti [place] one 10 mg one 10 mg sone 10 mg [facility] tablet TAKE tablet TAKE tablet ty 2 TABLETS 2 TABLETS TAKE 2 [facility] BY MOUTH BY MOUTH TABLETS BY l WITH WITH MOUTH WITH Clinics BREAKFAST BREAKFAST BREAKFAST AND 1 AND 1 AND 1 TABLET WITH TABLET WITH TABLET DINNER DINNER WITH DINNER hydrocortis hydrocortis No hydrocorti [place] one 20 mg one 20 mg sone 20 mg [facility] tablet TAKE tablet TAKE tablet ty 1 TABLET BY 1 TABLET BY TAKE 1 [facility]ospita MOUTH WITH MOUTH WITH TABLET BY l BREAKFAST BREAKFAST MOUTH WITH Clinics AND 2 AND 2 BREAKFAST TABLETS TABLETS AND 2 WITH WITH TABLETS DINNER. DINNER. WITH DINNER. docusate docusate No docusate Swe madeleine sodium 100 sodium 100 sodium 100 [facility] mg capsule mg capsule mg capsule ty TAKE 1 TAKE 1 TAKE 1 Hospita CAPSULE BY CAPSULE BY CAPSULE BY l MOUTH EVERY MOUTH EVERY MOUTH Clinics DAY DAY EVERY DAY levothyroxi levothyroxi No levothyrox [place] ne 100 mcg ne 100 mcg ine 100 Communi tablet TAKE tablet TAKE mcg tablet ty 1 TABLET BY 1 TABLET BY TAKE 1 Hospita MOUTH EVERY MOUTH EVERY TABLET BY l DAY IN THE DAY IN THE MOUTH Cl inics MORNING ON MORNING ON EVERY DAY EMPTY EMPTY IN THE STOMACH STOMACH MORNING ON EMPTY STOMACH liothyronin liothyronin No liothyroni [place] e 5 mcg e 5 mcg ne 5 mcg Commu ni tablet TAKE tablet TAKE tablet ty 2 TABS BY 2 TABS BY TAKE 2 [facility] MOUTH TUES, MOUTH TUES, TABS BY l THURS, SAT, THURS, SAT, MOUTH Clinics SUN & 1 TAB SUN & 1 TAB TUES, MON, WED, MON, WED, , FRI HALF HR FRI HALF HR SAT, SUN & BEFORE BEFORE 1 TAB MON, BREAKFAST BREAKFAST TUE, TUE WITH WATER WITH WATER HALF HR BEFORE BREAKFAST WITH WATER metformin metformin No metformin [place] 500 mg 500 mg 500 mg [facility] tablet TAKE tablet TAKE tablet ty 1 TABLET BY 1 TABLET BY TAKE 1 Hospita MOUTH WITH MOUTH WITH TABLET BY l BREAKFAST BREAKFAST MOUTH WITH Clinics AND 1 AND 1 BREAKFAST TABLET WITH TABLET WITH AND 1 DINNER DINNER TABLET WITH DINNER mupirocin 2 mupirocin 2 No mupirocin [place] % topical % topical 2 % Commu ni ointment ointment topical ty APPLY A APPLY A ointment Hospi ta SMALL SMALL APPLY A l AMOUNT TO AMOUNT TO SMALL Clin ics THE THE AMOUNT TO AFFECTED AFFECTED THE AREA BY AREA BY AFFECTED TOPICAL TOPICAL AREA BY ROUTE UP TO ROUTE UP TO TOPICAL 3 TIMES PER 3 TIMES PER ROUTE UP DAY PRN DAY PRN TO 3 TIMES PER DAY PRN nitroglycer nitroglycer No 1 nitroglyce [place] in 0.4 mg in 0.4 mg rin [...] TIMES l DAILY Clinics potassium potassium No 3 Q1D potassium [place] chloride ER chloride ER chloride [facility] 10 mEq 10 mEq ER 10 mEq ty tablet,exte tablet,exte tablet,ext Hospita nded nded ended l release release release Clinic s Take 3 Take 3 Take 3 tablets tablets tablets every day every day every day by oral by oral by oral route in route in route in the the the morning. morning. morning. fenofibrate fenofibrate No fenofibrat [place] nanocrystal nanocrystal e C [facility] lized 145 lized 145 nanocrysta ty mg tablet mg tablet llized 145 Hospita TAKE 1 TAKE 1 mg tablet l TABLET BY TABLET BY TAKE 1 Cli nics MOUTH EVERY MOUTH EVERY TABLET BY DAY DAILY DAY DAILY MOUTH ORALLY 90 ORALLY 90 EVERY DAY DAILY ORALLY 90 tramadol 50 tramadol 50 No tramadol [place] mg tablet mg tablet 50 mg Comm uni TAKE 1 TAKE 1 tablet ty TABLET BY TABLET BY TAKE 1 [facility] MOUTH EVERY MOUTH EVERY TABLET BY l 12 HOURS 12 HOURS MOUTH Clinics NEEDED FOR NEEDED FOR EVERY 12 PAIN PAIN HOURS NEEDED FOR PAIN glipizide glipizide No glipizide [place] ER 2.5 mg ER 2.5 mg ER [...] TAB Tue FRI hydrocortis hydrocortis No hydrocorti [place] one 20 mg one 20 mg sone [...] PM IN PM A HALF IN PM amlodipine amlodipine No amlodipine [place] 5 mg tablet 5 mg tablet 5 mg C [facility] TAKE 1 TAKE 1 tablet ty TABLET BY TABLET BY TAKE 1 [facility] MOUTH EVERY MOUTH EVERY TABLET BY l DAY FOR 90 DAY FOR 90 MOUTH Cl inics DAYS DAYS EVERY DAY FOR 90 DAYS atorvastati atorvastati No atorvastat [place] n 20 mg n 20 mg in 20 mg Commu ni tablet TAKE tablet TAKE tablet ty 1 TABLET BY 1 TABLET BY TAKE 1 Hospita MOUTH EVERY MOUTH EVERY TABLET BY l DAY DAY MOUTH Clinics EVERY DAY BD Kalee 2nd BD Kalee 2nd No BD Kalee [place] Gen Pen Gen Pen 2nd Gen Commun i Needle 32 Needle 32 Pen Needle ty gauge x gauge x 32 gauge x [facility] " USE " USE " USE l TO INJECT 1 TO INJECT 1 TO INJECT Clinics TIME A DAY TIME A DAY 1 TIME A DAY cholecalcif cholecalcif No cholecalci [place] ghada ghada ferol [facility] (vitamin (vitamin (vitamin ty D3) 1,250 D3) 1,250 D3) 1,250 Hospita mcg (50,000 mcg (50,000 mcg l unit) unit) (50,000 Clinics capsule capsule unit) TAKE 1 TAKE 1 capsule CAPSULE BY CAPSULE BY TAKE 1 MOUTH EVERY MOUTH EVERY CAPSULE BY 15 DAYS 15 DAYS MOUTH EVERY 15 DAYS clonazepam clonazepam No clonazepam [place] 0.5 mg 0.5 mg 0.5 mg [facility] tablet TAKE tablet TAKE tablet ty 1 TABLET BY 1 TABLET BY TAKE 1 Hospita MOUTH EVERY MOUTH EVERY TABLET BY l DAY DAY MOUTH Clinics NEEDED NEEDED EVERY DAY NEEDED famotidine famotidine No famotidine [place] 20 mg 20 mg 20 mg [facility] tablet TAKE tablet TAKE tablet ty 1 TABLET BY 1 TABLET BY TAKE 1 Hospita MOUTH TWICE MOUTH TWICE TABLET BY l A DAY FOR A DAY FOR MOUTH Clin ics 30 DAYS 30 DAYS TWICE A DAY FOR 30 DAYS fluticasone fluticasone No fluticason [place] propionate propionate e Com raz 0.05 % 0.05 % propionate ty topical topical 0.05 % Hospita cream APPLY cream APPLY topical l TO AFFECTED TO AFFECTED cream Clinics AREA TWICE AREA TWICE APPLY TO A DAY A DAY AFFECTED AREA TWICE A DAY Klor-Con 10 Klor-Con 10 No Klor-Con [place] mEq mEq 10 mEq [facility] tablet,exte tablet,exte tablet,ext ty nded nded ended Hospita release 1 release 1 release 1 l po qd po qd po qd Clinics fluticasone fluticasone No 1spray( Q1D fluticason [place] propionate propionate s) e Com raz 50 50 propionate ty mcg/actuati mcg/actuati 50 H ospita on nasal on nasal mcg/actuat l spray,suspe spray,suspe ion nasal Clinics nsion [place] nsion [place] spray,susp 1 spray 1 spray ension every day every day [place] 1 by by spray intranasal intranasal every day route. route. by intranasal route. glipizide glipizide No glipizide [place] ER 2.5 mg ER 2.5 mg ER 2.5 mg [facility] tablet, tablet, tablet, ty extended extended extended [facility] release 24 release 24 release 24 l hr TAKE 1 hr TAKE 1 hr TAKE 1 Clinics TABLET BY TABLET BY TABLET BY MOUTH ONCE MOUTH ONCE MOUTH ONCE EVERY EVERY EVERY Tuesday Humatrope 6 Humatrope 6 No Humatrope [place] mg (18 mg (18 6 mg (18 [facility] unit) unit) unit) ty injection injection injection [facility] cartridge cartridge cartridge l INJECT INJECT INJECT [facility] 0.3MG 0.3MG 0.3MG SUBCUTANEOU SUBCUTANEOU SUBCUTANEO SLY EVERY SLY EVERY USLY EVERY DAY DAY DAY hydrocortis hydrocortis No hydrocorti [place] one 10 mg one 10 mg sone 10 mg [facility] tablet TAKE tablet TAKE tablet ty 2 TABLETS 2 TABLETS TAKE 2 [facility] BY MOUTH BY MOUTH TABLETS BY l WITH WITH MOUTH WITH Clinics BREAKFAST BREAKFAST BREAKFAST AND 1 AND 1 AND 1 TABLET WITH TABLET WITH TABLET DINNER DINNER WITH DINNER hydrocortis hydrocortis No hydrocorti [place] one 20 mg one 20 mg sone 20 mg [facility]i tablet TAKE tablet TAKE tablet ty 1 TABLET BY 1 TABLET BY TAKE 1 Hospita MOUTH WITH MOUTH WITH TABLET BY l BREAKFAST BREAKFAST MOUTH WITH Clinics AND 2 AND 2 BREAKFAST TABLETS TABLETS AND 2 WITH WITH TABLETS DINNER. DINNER. WITH DINNER. levothyroxi levothyroxi No levothyrox [place] ne 100 mcg ne 100 mcg ine 100 Communi tablet TAKE tablet TAKE mcg tablet ty 1 TABLET BY 1 TABLET BY TAKE 1 Hospita MOUTH EVERY MOUTH EVERY TABLET BY l DAY IN THE DAY IN THE MOUTH Cl inics MORNING ON MORNING ON EVERY DAY EMPTY EMPTY IN THE STOMACH STOMACH MORNING ON EMPTY STOMACH liothyronin liothyronin No liothyroni [place] e 5 mcg e 5 mcg ne [...] BEFORE 1 TAB MON, BREAKFAST BREAKFAST TUE, TUE WITH WATER WITH WATER HALF HR BEFORE BREAKFAST WITH WATER metformin metformin No metformin [place] 500 mg 500 mg 500 mg [facility] tablet TAKE tablet TAKE tablet ty 1 TABLET BY 1 TABLET BY TAKE 1 Hospita MOUTH WITH MOUTH WITH TABLET BY l BREAKFAST BREAKFAST MOUTH WITH Clinics AND 1 AND 1 BREAKFAST TABLET WITH TABLET WITH AND 1 DINNER DINNER TABLET WITH DINNER metronidazo metronidazo No 1 Q8H metronidaz [place] le 500 mg le 500 mg ole 500 mg Communi tablet Take tablet Take tablet ty 1 tablet 1 tablet Take 1 Hospi ta every 8 every 8 tablet l hours by hours by every 8 Clin ics oral route oral route hours by for 7 days. for 7 days. oral route for 7 days. mupirocin 2 mupirocin 2 No mupirocin [place] % topical % topical 2 % Commu [...] 3 TIMES NEEDED NEEDED PER DAY NEEDED levothyroxi levothyroxi No levothyrox [place] ne 112 mcg ne 112 mcg ine 112 Communi tablet tablet mcg tablet ty Hospita l Clinics nitroglycer nitroglycer No 1 nitroglyce [place] in 0.4 mg in 0.4 mg rin [...] OneTouch OneTouch No OneTouch Swe madeleine Verio Verio Verio Communi Reflect Reflect Reflect ty Meter USE Meter USE Meter USE Hospita TO MONITOR TO MONITOR TO MONITOR l BLOOD SUGAR BLOOD SUGAR BLOOD Clinics SUGAR OneTouch OneTouch No OneTouch Swe madeleine Verio test Verio test Verio test Communi strips USE strips USE strips USE ty TO TEST TO TEST TO TEST Hospit a BLOOD SUGAR BLOOD SUGAR BLOOD l 2 TIMES 2 TIMES SUGAR 2 Clinic s DAILY DAILY TIMES DAILY potassium potassium No 3 Q1D potassium [place] chloride ER chloride ER chloride Communi 10 mEq 10 mEq ER 10 mEq ty tablet,exte tablet,exte tablet,ext Hospita nded nded ended l release release release Clinic s Take 3 Take 3 Take 3 tablets tablets tablets every day every day every day by oral by oral by oral route in route in route in the the the morning. morning. morning. sucralfate sucralfate No sucralfate [place] 100 mg/mL 100 mg/mL 100 mg/mL [facility]i oral oral oral ty suspension suspension suspension Hospita TAKE 10 ML TAKE 10 ML TAKE 10 ML l 1 HOUR 1 HOUR 1 HOUR Clinics BEFORE BEFORE BEFORE MEALS ON AN MEALS ON AN MEALS ON EMPTY EMPTY AN EMPTY STOMACH STOMACH STOMACH ORALLY ORALLY ORALLY THREE TIMES THREE TIMES THREE A DAY 14 A DAY 14 TIMES A DAYS DAYS DAY 14 DAYS tramadol 50 tramadol 50 No tramadol [place] mg tablet mg tablet 50 mg Comm uni TAKE 1 TAKE 1 tablet ty TABLET BY TABLET BY TAKE 1 [facility] MOUTH EVERY MOUTH EVERY TABLET BY l 12 HOURS 12 HOURS MOUTH Clinics NEEDED FOR NEEDED FOR EVERY 12 PAIN PAIN HOURS NEEDED FOR PAIN levothyroxi levothyroxi No levothyrox [place] ne 125 mcg ne 125 mcg ine 125 Communi tablet 1 po tablet 1 po mcg tablet ty qd qd 1 po qd Hospita l Clinics liothyronin liothyronin No liothyroni [place] e 5 mcg e 5 mcg ne [...] tablet 1 ty qd qd po qd [facility] losartan 50 losartan 50 No losartan [place] mg tablet mg tablet 50 mg Comm uni tablet ty [facility] methscopola methscopola No methscopol [place] mine 5 mg mine 5 mg amine 5 mg Communi tablet TAKE tablet TAKE tablet ty 1 TABLET BY 1 TABLET BY TAKE 1 [facility] MOUTH EVERY MOUTH EVERY TABLET BY l DAY DAY MOUTH Clinics EVERY DAY nitroglycer nitroglycer No 1 nitroglyce [place] in 0.4 mg in 0.4 mg rin 0.4 mg Communi sublingual sublingual sublingual ty tablet [facility] [address] 1 l tablet as tablet as tablet as Clinics needed by needed by needed by sublingual sublingual sublingual route. route. route. Omnitrope 5 Omnitrope 5 No Omnitrope [place] mg/1.5 mL mg/1.5 mL 5 mg/1.5 C om[facility]i (3.3 mg/mL) (3.3 mg/mL) mL (3.3 ty subcutaneou subcutaneou mg/mL) [facility] s cartridge s cartridge subcutaneo l 1 SC daily 1 SC daily us Cli nics cartridge 1 SC daily OneTouch OneTouch No OneTouch Swe madeleine Delica Delica Delica Communi Lancets 30 Lancets 30 Lancets 30 ty gauge TEST gauge TEST gauge TEST [facility] TWICE A DAY TWICE A DAY TWICE [...] Clinics sotalol 160 sotalol 160 No sotalol [place] mg tablet 1 mg tablet 1 160 mg Communi po bid po bid tablet 1 ty po bid [facility] sotalol 80 sotalol 80 No sotalol 80 [place] mg tablet mg tablet mg tablet [facility] warfarin 1 warfarin 1 No warfarin 1 [place] mg tablet mg tablet mg tablet Communi ty [facility] warfarin 2 warfarin 2 No warfarin 2 [place] mg tablet mg tablet mg tablet Communi [...] by oral route. amlodipine amlodipine No amlodipine [place] 5 mg tablet 5 mg tablet 5 mg C [facility]i TAKE 1 TAKE 1 tablet ty TABLET BY TABLET BY TAKE 1 [facility] MOUTH EVERY MOUTH EVERY TABLET BY l DAY DAY MOUTH Clinics EVERY DAY atorvastati atorvastati No atorvastat [place] n 40 mg n 40 mg in 40 mg Commu ni tablet TAKE tablet TAKE tablet ty 1 TABLET BY 1 TABLET BY TAKE 1 Hospita MOUTH EVERY MOUTH EVERY TABLET BY l DAY DAY MOUTH Clinics EVERY DAY BD BD No BD [place] Ultra-Fine Ultra-Fine Ultra-Fine [place] Kalee Pen Kalee Pen Kalee Pen ty Needle 32 Needle 32 Needle 32 Hospita gauge x gauge x gauge x l " " " Clinics cholecalcif cholecalcif No cholecalci [place] ghada ghada ferol Liam (vitamin (vitamin (vitamin ty D3) 1,250 D3) 1,250 D3) 1,250 Hospita mcg (50,000 mcg (50,000 mcg l unit) unit) (50,000 Clinics capsule capsule unit) TAKE 1 TAKE 1 capsule CAPSULE CAPSULE TAKE 1 EVERY 15 EVERY 15 CAPSULE DAYS DAYS EVERY 15 DAYS clonazepam clonazepam No clonazepam [place] 0.5 mg 0.5 mg 0.5 mg Communi tablet TAKE tablet TAKE tablet ty 1 TABLET BY 1 TABLET BY TAKE 1 Hospita MOUTH TWICE MOUTH TWICE TABLET BY l A DAY A DAY MOUTH Clinic s DIRECTED DIRECTED TWICE A DAY DIRECTED Dexilant 60 Dexilant 60 No Dexilant [place] mg capsule, mg capsule, 60 mg Communi delayed delayed capsule, ty release 1 release 1 delayed Ho spita po qd po qd release 1 l po qd [facility] docusate docusate No docusate Swe madeleine sodium 100 sodium 100 sodium 100 Communi mg capsule mg capsule mg capsule ty TAKE 1 TAKE 1 TAKE 1 Hospita CAPSULE BY CAPSULE BY CAPSULE BY l MOUTH EVERY MOUTH EVERY MOUTH Clinics DAY DAY EVERY DAY fenofibrate fenofibrate No fenofibrat [place] nanocrystal nanocrystal e C om[facility]i lized 145 lized 145 nanocrysta ty mg tablet mg tablet llized 145 Hospita TAKE 1 TAKE 1 mg tablet l TABLET BY TABLET BY TAKE 1 Cli nics MOUTH EVERY MOUTH EVERY TABLET BY DAY DAILY DAY DAILY MOUTH ORALLY 90 ORALLY 90 EVERY DAY DAILY ORALLY 90 glipizide glipizide No glipizide [place] ER 2.5 mg ER 2.5 mg ER [...] TAB Tue FRI hydrocortis hydrocortis No hydrocorti [place] one 20 mg one 20 mg sone [...] PM Klor-Con 10 Klor-Con 10 No Klor-Con [place] mEq mEq 10 mEq [facility] tablet,exte tablet,exte tablet,ext ty nded nded ended Hospita release 1 release 1 release 1 l po qd po qd po qd [facility] levothyroxi levothyroxi No levothyrox [place] ne 112 mcg ne 112 mcg ine 112 Communi tablet tablet mcg tablet ty [facility] levothyroxi levothyroxi No levothyrox [place] ne 125 mcg ne 125 mcg ine 125 Communi tablet 1 po tablet 1 po mcg tablet ty qd qd 1 po qd [facility] liothyronin liothyronin No liothyroni [place] e 5 mcg e 5 mcg ne [...] tablet 1 ty qd qd po qd [facility] losartan 50 losartan 50 No losartan [place] mg tablet mg tablet 50 mg Comm uni tablet ty [facility] methscopola methscopola No methscopol [place] mine 5 mg mine 5 mg amine 5 mg Communi tablet TAKE tablet TAKE tablet ty 1 TABLET BY 1 TABLET BY TAKE 1 [facility] MOUTH EVERY MOUTH EVERY TABLET BY l DAY DAY MOUTH Clinics EVERY DAY nitroglycer nitroglycer No 1 nitroglyce [place] in 0.4 mg in 0.4 mg rin 0.4 mg Communi sublingual sublingual sublingual ty tablet tablet [facility] [address] 1 l tablet as tablet as tablet as Clinics needed by needed by needed by sublingual sublingual sublingual route. route. route. Omnitrope 5 Omnitrope 5 No Omnitrope [place] mg/1.5 mL mg/1.5 mL 5 mg/1.5 [facility] om[facility]i (3.3 mg/mL) (3.3 mg/mL) mL (3.3 ty subcutaneou subcutaneou mg/mL) [facility] s cartridge s cartridge subcutaneo l 1 SC daily 1 SC daily us Cli nics cartridge 1 SC daily OneTouch OneTouch No OneTouch Swe madeleine Delica Delica Delica Communi Lancets 30 Lancets 30 Lancets 30 ty gauge TEST gauge TEST gauge TEST [facility] TWICE A DAY TWICE A DAY TWICE [...] A DAY TEST TWICE Hospita A DAY [facility] sotalol 160 sotalol 160 No sotalol [place] mg tablet 1 mg tablet 1 160 mg Communi po bid po bid tablet 1 ty po bid [facility] sotalol 80 sotalol 80 No sotalol 80 [place] mg tablet mg tablet mg tablet Communi ty [facility] warfarin 1 warfarin 1 No warfarin 1 [place] mg tablet mg tablet mg tablet Communi ty [facility] warfarin 2 warfarin 2 No warfarin 2 [place] mg tablet mg tablet mg tablet Communi [...] by oral route. amlodipine amlodipine No amlodipine [place] 5 mg tablet 5 mg tablet 5 mg C om[facility]i TAKE 1 TAKE 1 tablet ty TABLET BY TABLET BY TAKE 1 [facility] MOUTH EVERY MOUTH EVERY TABLET BY l DAY DAY MOUTH Clinics EVERY DAY atorvastati atorvastati No atorvastat [place] n 40 mg n 40 mg in 40 mg Commu ni tablet TAKE tablet TAKE tablet ty 1 TABLET BY 1 TABLET BY TAKE 1 Hospita MOUTH EVERY MOUTH EVERY TABLET BY l DAY DAY MOUTH Clinics EVERY DAY BD BD No BD [place] Ultra-Fine Ultra-Fine Ultra-Fine Communi [place]e Pen Kalee Pen Kalee Pen ty Needle 32 Needle 32 Needle 32 [facility] gauge x gauge x gauge x l " " " Clinics cholecalcif cholecalcif No cholecalci [place] ghada ghada ferol [place] (vitamin (vitamin (vitamin ty D3) 1,250 D3) 1,250 D3) 1,250 [facility] mcg (50,000 mcg (50,000 mcg l unit) unit) (50,000 Clinics capsule capsule unit) TAKE 1 TAKE 1 capsule CAPSULE CAPSULE TAKE 1 EVERY 15 EVERY 15 CAPSULE DAYS DAYS EVERY 15 DAYS clonazepam clonazepam No clonazepam [place] 0.5 mg 0.5 mg 0.5 mg Communi tablet TAKE tablet TAKE tablet ty 1 TABLET BY 1 TABLET BY TAKE 1 Hospita MOUTH TWICE MOUTH TWICE TABLET BY l A DAY A DAY MOUTH Clinic s DIRECTED DIRECTED TWICE A DAY DIRECTED Dexilant 60 Dexilant 60 No Dexilant [place] mg capsule, mg capsule, 60 mg Communi [...] DAY EVERY DAY fenofibrate fenofibrate No fenofibrat [place] nanocrystal nanocrystal e C om[facility]i lized 145 lized 145 nanocrysta ty mg tablet mg tablet llized 145 Hospita TAKE 1 TAKE 1 mg tablet l TABLET BY TABLET BY TAKE 1 Cli nics MOUTH EVERY MOUTH EVERY TABLET BY DAY DAILY DAY DAILY MOUTH ORALLY 90 ORALLY 90 EVERY DAY DAILY ORALLY 90 glipizide glipizide No glipizide [place] ER 2.5 mg ER 2.5 mg ER [...] TAB Tue FRI hydrocortis hydrocortis No hydrocorti [place] one 20 mg one 20 mg sone 20 mg Communi tablet TAKE tablet TAKE tablet ty 1 BID for 3 1 BID for 3 TAKE 1 BID Hospita days days for 3 days l Clinics Klor-Con 10 Klor-Con 10 No Klor-Con [place] mEq mEq 10 mEq Communi tablet,exte tablet,exte tablet,ext ty nded nded ended Hospita release 1 release 1 release 1 l po qd po qd po qd Clinics levothyroxi levothyroxi No levothyrox [place] ne 112 mcg ne 112 mcg ine 112 Communi tablet tablet mcg tablet ty Hospita l Clinics levothyroxi levothyroxi No levothyrox [place] ne 125 mcg ne 125 mcg ine 125 Communi tablet 1 po tablet 1 po mcg tablet ty qd qd 1 po qd [facility] Clinics liothyronin liothyronin No liothyroni [place] e 5 mcg e 5 mcg ne [...] tablet 1 ty qd qd po qd [facility] losartan 50 losartan 50 No losartan [place] mg tablet mg tablet 50 mg Comm uni tablet ty [facility] methscopola methscopola No methscopol [place] mine 5 mg mine 5 mg amine 5 mg Communi tablet TAKE tablet TAKE tablet ty 1 TABLET BY 1 TABLET BY TAKE 1 [facility] MOUTH EVERY MOUTH EVERY TABLET BY l DAY DAY MOUTH Clinics EVERY DAY nitroglycer nitroglycer No 1 nitroglyce [place] in 0.4 mg in 0.4 mg rin 0.4 mg Communi sublingual sublingual sublingual ty tablet tablet tablet [facility] [address] 1 l tablet as tablet as tablet as Clinics needed by needed by needed by sublingual sublingual sublingual route. route. route. Omnitrope 5 Omnitrope 5 No Omnitrope [place] mg/1.5 mL mg/1.5 mL 5 mg/1.5 C om[facility]i (3.3 mg/mL) (3.3 mg/mL) mL (3.3 ty subcutaneou subcutaneou mg/mL) [facility] s cartridge s cartridge subcutaneo l 1 SC daily 1 SC daily us Cli nics cartridge 1 SC daily OneTouch OneTouch No OneTouch Swe madeleine Delica Delica Delica Communi Lancets 30 Lancets 30 Lancets 30 ty gauge TEST gauge TEST gauge TEST [facility] TWICE A DAY TWICE A DAY TWICE [...] Clinics sotalol 160 sotalol 160 No sotalol [place] mg tablet mg tablet 160 mg Com raz TAKE 1 TAKE 1 tablet ty TABLET BY TABLET BY TAKE 1 [facility] MOUTH TWICE MOUTH TWICE TABLET BY l A DAY A DAY MOUTH Clinics TWICE A DAY sotalol 80 sotalol 80 No sotalol 80 [place] mg tablet mg tablet mg tablet Communi ty [facility] tramadol 50 tramadol 50 No 1 Q6H tramadol [place] mg tablet mg tablet 50 mg Comm uni Take 1 Take 1 tablet ty tablet tablet Take 1 Hospita every 6 every 6 tablet l hours by hours by every 6 Clin ics oral route. oral route. hours by oral route. warfarin 1 warfarin 1 No warfarin 1 [place] mg tablet mg tablet mg tablet Communi ty [facility] Clinics warfarin 2 warfarin 2 No warfarin 2 [place] mg tablet mg tablet mg tablet Communi [...] by oral route. amlodipine amlodipine No amlodipine [place] 5 mg tablet 5 mg tablet 5 mg C om[facility]i TAKE 1 TAKE 1 tablet ty TABLET BY TABLET BY TAKE 1 [facility] MOUTH EVERY MOUTH EVERY TABLET BY l DAY DAY MOUTH Clinics EVERY DAY atorvastati atorvastati No atorvastat [place] n 40 mg n 40 mg in 40 mg Commu ni tablet TAKE tablet TAKE tablet ty 1 TABLET BY 1 TABLET BY TAKE 1 Hospita MOUTH EVERY MOUTH EVERY TABLET BY l DAY DAY MOUTH Clinics EVERY DAY BD BD No BD [place] Ultra-Fine Ultra-Fine Ultra-Fine [facility] Kalee Pen Kalee Pen Kalee Pen ty Needle 32 Needle 32 Needle 32 Hospita gauge x gauge x gauge x l 5/32" 5/32" " Clinics cholecalcif cholecalcif No cholecalci [place] ghada ghada ferol Communi (vitamin (vitamin (vitamin ty D3) 1,250 D3) 1,250 D3) 1,250 Hospita mcg (50,000 mcg (50,000 mcg l unit) unit) (50,000 Clinics capsule capsule unit) TAKE 1 TAKE 1 capsule CAPSULE CAPSULE TAKE 1 EVERY 15 EVERY 15 CAPSULE DAYS DAYS EVERY 15 DAYS clonazepam clonazepam No clonazepam [place] 0.5 mg 0.5 mg 0.5 mg Communi tablet TAKE tablet TAKE tablet ty 1 TABLET BY 1 TABLET BY TAKE 1 Hospita MOUTH TWICE MOUTH TWICE TABLET BY l A DAY A DAY MOUTH Clinic s DIRECTED DIRECTED TWICE A DAY DIRECTED Dexilant 60 Dexilant 60 No Dexilant [place] mg capsule, mg capsule, 60 mg Communi [...] DAY EVERY DAY fenofibrate fenofibrate No fenofibrat [place] nanocrystal nanocrystal e C om[facility]i lized 145 lized 145 nanocrysta ty mg tablet mg tablet llized 145 Hospita TAKE 1 TAKE 1 mg tablet l TABLET BY TABLET BY TAKE 1 Cli nics MOUTH EVERY MOUTH EVERY TABLET BY DAY DAY MOUTH EVERY DAY glipizide glipizide No glipizide [place] ER 2.5 mg ER 2.5 mg ER [...] FRI WED FRI hydrocortis hydrocortis No hydrocorti [place] one 20 mg one 20 mg sone 20 mg Communi tablet TAKE tablet TAKE tablet ty 1 BID for 3 1 BID for 3 TAKE 1 BID Hospita days days for 3 days l Clinics Klor-Con 10 Klor-Con 10 No Klor-Con [place] mEq mEq 10 mEq Communi tablet,exte tablet,exte tablet,ext ty nded nded ended Hospita release 1 release 1 release 1 l po qd po qd po qd Clinics levothyroxi levothyroxi No levothyrox [place] ne 112 mcg ne 112 mcg ine 112 Communi tablet tablet mcg tablet ty [facility] levothyroxi levothyroxi No levothyrox [place] ne 125 mcg ne 125 mcg ine 125 Communi tablet 1 po tablet 1 po mcg tablet ty qd qd 1 po qd [facility] liothyronin liothyronin No liothyroni [place] e 5 mcg e 5 mcg ne 5 mcg Commu ni tablet 2 tablet 2 tablet 2 ty TABS TUES, TABS TUES, TABS TUES, Hospita THURS, SAT, THURS, SAT, THURS, l SUN. TAKE 1 SUN. TAKE 1 SAT, SUN. Clinics TAB MON, TAB MON, TAKE 1 TAB WED, FRI TUE, FRI MON, WED, HALF HOUR HALF HOUR FRI HALF BEFORE BEFORE HOUR BREAKFAST BREAKFAST BEFORE WITH WATER WITH WATER BREAKFAST WITH WATER losartan losartan No losartan Swe madeleine 100 mg 100 mg 100 mg Communi tablet 1 po tablet 1 po tablet 1 ty qd qd po qd [facility] losartan 50 losartan 50 No losartan [place] mg tablet mg tablet 50 mg Comm uni tablet ty [facility] methscopola methscopola No methscopol [place] mine 5 mg mine 5 mg amine 5 mg Communi tablet TAKE tablet TAKE tablet ty 1 TABLET BY 1 TABLET BY TAKE 1 [facility] MOUTH EVERY MOUTH EVERY TABLET BY l DAY DAY MOUTH Clinics EVERY DAY nitroglycer nitroglycer No 1 nitroglyce [place] in 0.4 mg in 0.4 mg rin 0.4 mg Communi sublingual sublingual sublingual ty tablet tablet tablet [facility] [address] 1 l tablet as tablet as tablet as Clinics needed by needed by needed by sublingual sublingual sublingual route. route. route. Omnitrope 5 Omnitrope 5 No Omnitrope [place] mg/1.5 mL mg/1.5 mL 5 mg/1.5 [facility] (3.3 mg/mL) (3.3 mg/mL) mL (3.3 ty subcutaneou subcutaneou mg/mL) Hospita s cartridge s cartridge subcutaneo l 1 [...] Clinics sotalol 160 sotalol 160 No sotalol [place] mg tablet mg tablet 160 mg Com raz TAKE 1 TAKE 1 tablet ty TABLET BY TABLET BY TAKE 1 [facility] MOUTH TWICE MOUTH TWICE TABLET BY l A DAY A DAY MOUTH Clinics TWICE A DAY sotalol 80 sotalol 80 No sotalol 80 [place] mg tablet mg tablet mg tablet [facility] tramadol 50 tramadol 50 No tramadol [place] mg tablet mg tablet 50 mg Comm uni Take 1 Take 1 tablet ty tablet tablet Take 1 Hospita every 6 every 6 tablet l hours by hours by every 6 Clin ics oral route. oral route. hours by oral route. warfarin 1 warfarin 1 No warfarin 1 [place] mg tablet mg tablet mg tablet [facility] warfarin 2 warfarin 2 No warfarin 2 [place] mg tablet mg tablet mg tablet Communi [...] by oral route. amlodipine amlodipine No amlodipine [place] 5 mg tablet 5 mg tablet 5 mg C [facility]i TAKE 1 TAKE 1 tablet ty TABLET BY TABLET BY TAKE 1 [facility] MOUTH EVERY MOUTH EVERY TABLET BY l DAY DAY MOUTH Clinics EVERY DAY atorvastati atorvastati No atorvastat [place] n 40 mg n 40 mg in 40 mg Commu ni tablet TAKE tablet TAKE tablet ty 1 TABLET BY 1 TABLET BY TAKE 1 Hospita MOUTH EVERY MOUTH EVERY TABLET BY l DAY DAY MOUTH Clinics EVERY DAY BD BD No BD [place] Ultra-Fine Ultra-Fine Ultra-Fine Communi K[facility]e Pen Kalee Pen Kalee Pen ty Needle 32 Needle 32 Needle 32 Hospita gauge x gauge x gauge x l " " " Clinics cholecalcif cholecalcif No cholecalci [place] ghada ghada ferol Communi (vitamin (vitamin (vitamin ty D3) 1,250 D3) 1,250 D3) 1,250 Hospita mcg (50,000 mcg (50,000 mcg l unit) unit) (50,000 Clinics capsule capsule unit) TAKE 1 TAKE 1 capsule CAPSULE CAPSULE TAKE 1 EVERY 15 EVERY 15 CAPSULE DAYS DAYS EVERY 15 DAYS clonazepam clonazepam No clonazepam [place] 0.5 mg 0.5 mg 0.5 mg Communi tablet TAKE tablet TAKE tablet ty 1 TABLET BY 1 TABLET BY TAKE 1 Hospita MOUTH TWICE MOUTH TWICE TABLET BY l A DAY A DAY MOUTH Clinic s DIRECTED DIRECTED TWICE A DAY DIRECTED Dexilant 60 Dexilant 60 No Dexilant [place] mg capsule, mg capsule, 60 mg Communi [...] DAY EVERY DAY fenofibrate fenofibrate No fenofibrat [place] nanocrystal nanocrystal e C om[facility]i lized 145 lized 145 nanocrysta ty mg tablet mg tablet llized 145 Hospita TAKE 1 TAKE 1 mg tablet l TABLET BY TABLET BY TAKE 1 Cli nics MOUTH EVERY MOUTH EVERY TABLET BY DAY DAY MOUTH EVERY DAY glipizide glipizide No glipizide [place] ER 2.5 mg ER 2.5 mg ER [...] SUN AND 1 TAB MON WED TAB TUE WED TAB MON FRI Tue FRI hydrocortis hydrocortis No hydrocorti [place] one 20 mg one 20 mg sone 20 mg Communi tablet TAKE tablet TAKE tablet ty 1 BID for 3 1 BID for 3 TAKE 1 BID Hospita days days for 3 days l [facility] Klor-Con 10 Klor-Con 10 No Klor-Con [place] mEq mEq 10 mEq Communi tablet,exte tablet,exte tablet,ext ty nded nded ended Hospita release 1 release 1 release 1 l po qd po qd po qd [facility] levothyroxi levothyroxi No levothyrox [place] ne 112 mcg ne 112 mcg ine 112 Communi tablet tablet mcg tablet ty [facility] levothyroxi levothyroxi No levothyrox [place] ne 125 mcg ne 125 mcg ine 125 Communi tablet 1 po tablet 1 po mcg tablet ty qd qd 1 po qd [facility] liothyronin liothyronin No liothyroni [place] e 5 mcg e 5 mcg ne [...] tablet 1 ty qd qd po qd [facility] losartan 50 losartan 50 No losartan [place] mg tablet mg tablet 50 mg Comm uni tablet ty [facility] methscopola methscopola No methscopol [place] mine 5 mg mine 5 mg amine 5 mg Communi tablet TAKE tablet TAKE tablet ty 1 TABLET BY 1 TABLET BY TAKE 1 Hospita MOUTH EVERY MOUTH EVERY TABLET BY l DAY DAY MOUTH Clinics EVERY DAY nitroglycer nitroglycer No 1 nitroglyce [place] in 0.4 mg in 0.4 mg rin 0.4 mg Communi sublingual sublingual sublingual ty tablet tablet tablet Hospita Place [address] 1 l tablet as tablet as tablet as Clinics needed by needed by needed by sublingual sublingual sublingual route. route. route. Omnitrope 5 Omnitrope 5 No Omnitrope [place] mg/1.5 mL mg/1.5 mL 5 mg/1.5 C [...] ty gauge TEST gauge TEST gauge TEST [facility] TWICE A DAY TWICE A DAY TWICE [...] Clinics sotalol 160 sotalol 160 No sotalol [place] mg tablet mg tablet 160 mg Com raz TAKE 1 TAKE 1 tablet ty TABLET BY TABLET BY TAKE 1 [facility] MOUTH TWICE MOUTH TWICE TABLET BY l A DAY A DAY MOUTH Clinics TWICE A DAY sotalol 80 sotalol 80 No sotalol 80 [place] mg tablet mg tablet mg tablet Communi ty [facility] Clinics tramadol 50 tramadol 50 No tramadol [place] mg tablet mg tablet 50 mg Comm uni Take 1 Take 1 tablet ty tablet tablet Take 1 Hospita every 6 every 6 tablet l hours by hours by every 6 Clin ics oral route. oral route. hours by oral route. warfarin 1 warfarin 1 No warfarin 1 [place] mg tablet mg tablet mg tablet Communi ty [facility] warfarin 2 warfarin 2 No warfarin 2 [place] mg tablet mg tablet mg tablet Communi [...] by oral route. amlodipine amlodipine No amlodipine [place] 5 mg tablet 5 mg tablet 5 mg C [facility]i TAKE 1 TAKE 1 tablet ty TABLET BY TABLET BY TAKE 1 [facility] MOUTH EVERY MOUTH EVERY TABLET BY l DAY DAY MOUTH Clinics EVERY DAY atorvastati atorvastati No atorvastat [place] n 40 mg n 40 mg in 40 mg Commu ni tablet TAKE tablet TAKE tablet ty 1 TABLET BY 1 TABLET BY TAKE 1 Hospita MOUTH EVERY MOUTH EVERY TABLET BY l DAY DAY MOUTH Clinics EVERY DAY BD BD No BD [place] Ultra-Fine Ultra-Fine Ultra-Fine Communi [facility]e Pen Kalee Pen Kalee Pen ty Needle 32 Needle 32 Needle 32 Hospita gauge x gauge x gauge x l " " " Clinics cholecalcif cholecalcif No cholecalci [place] ghada ghada ferol Communi (vitamin (vitamin (vitamin ty D3) 1,250 D3) 1,250 D3) 1,250 Hospita mcg (50,000 mcg (50,000 mcg l unit) unit) (50,000 Clinics capsule capsule unit) TAKE 1 TAKE 1 capsule CAPSULE CAPSULE TAKE 1 EVERY 15 EVERY 15 CAPSULE DAYS DAYS EVERY 15 DAYS clonazepam clonazepam No clonazepam [place] 0.5 mg 0.5 mg 0.5 mg Communi tablet TAKE tablet TAKE tablet ty 1 TABLET BY 1 TABLET BY TAKE 1 Hospita MOUTH TWICE MOUTH TWICE TABLET BY l A DAY A DAY MOUTH Clinic s DIRECTED DIRECTED TWICE A PRn PRn DAY DIRECTED PRn Dexilant 60 Dexilant 60 No Dexilant [place] mg capsule, mg capsule, 60 mg Communi [...] DAY EVERY DAY fenofibrate fenofibrate No fenofibrat [place] nanocrystal nanocrystal e C om[facility]i lized 145 lized 145 nanocrysta ty mg tablet mg tablet llized 145 Hospita TAKE 1 TAKE 1 mg tablet l TABLET BY TABLET BY TAKE 1 Cli nics MOUTH EVERY MOUTH EVERY TABLET BY DAY DAY MOUTH EVERY DAY glipizide glipizide No glipizide [place] ER 2.5 mg ER 2.5 mg ER [...] FRI Tue FRI hydrocortis hydrocortis No hydrocorti [place] one 20 mg one 20 mg sone 20 mg Communi tablet TAKE tablet TAKE tablet ty 1 BID for 3 1 BID for 3 TAKE 1 BID Hospita days days for 3 days l Clinics Klor-Con 10 Klor-Con 10 No Klor-Con [place] mEq mEq 10 mEq Communi tablet,exte tablet,exte tablet,ext ty nded nded ended Hospita release 1 release 1 release 1 l po qd po qd po qd Clinics levothyroxi levothyroxi No levothyrox [place] ne 125 mcg ne 125 mcg ine 125 Communi tablet 1 po tablet 1 po mcg tablet ty qd qd 1 po qd Hospita l Clinics lidocaine 5 lidocaine 5 No lidocaine [place] % topical % topical 5 % Commu ni patch APPLY patch APPLY topical ty 1 PATCH BY 1 PATCH BY patch Ho spita TOPICAL TOPICAL APPLY 1 l ROUTE ONCE ROUTE ONCE PATCH BY Clinics DAILY (MAY DAILY (MAY TOPICAL WEAR UP TO WEAR UP TO ROUTE ONCE 12HOURS.) 12HOURS.) DAILY (MAY WEAR UP TO 12HOURS.) liothyronin liothyronin No liothyroni [place] e 5 mcg e 5 mcg ne [...] qd qd po qd Hospita l Clinics methscopola methscopola No methscopol [place] mine 5 mg mine 5 mg amine 5 mg Communi tablet TAKE tablet TAKE tablet ty 1 TABLET BY 1 TABLET BY TAKE 1 Hospita MOUTH EVERY MOUTH EVERY TABLET BY l DAY DAY MOUTH Clinics EVERY DAY nitroglycer nitroglycer No 1 nitroglyce [place] in 0.4 mg in 0.4 mg rin 0.4 mg Communi sublingual sublingual sublingual ty tablet tablet tablet Hospita Place [address] 1 l tablet as tablet as tablet as Clinics needed by needed by needed by sublingual sublingual sublingual route. route. route. Omnitrope 5 Omnitrope 5 No Omnitrope [place] mg/1.5 mL mg/1.5 mL 5 mg/1.5 [facility] om[facility]i (3.3 mg/mL) (3.3 mg/mL) mL (3.3 ty subcutaneou subcutaneou mg/mL) [facility] s cartridge s cartridge subcutaneo l 1 [...] Clinics sotalol 160 sotalol 160 No sotalol [place] mg tablet mg tablet 160 mg Com raz TAKE 1 TAKE 1 tablet ty TABLET BY TABLET BY TAKE 1 [facility] MOUTH TWICE MOUTH TWICE TABLET BY l A DAY A DAY MOUTH Clinics TWICE A DAY tramadol 50 tramadol 50 No tramadol [place] mg tablet mg tablet 50 mg Comm uni Take 1 Take 1 tablet ty tablet tablet Take 1 Hospita every 6 every 6 tablet l hours by hours by every 6 Clin ics oral route. oral route. hours by oral route. warfarin 1 warfarin 1 No warfarin 1 [place] mg tablet mg tablet mg tablet Communi Takes MWF Takes MWF Takes MWF ty Hospita l Clinics warfarin 2 warfarin 2 No warfarin 2 [place] mg tablet mg tablet mg tablet Communi TAKE 1 TAKE 1 TAKE 1 ty TABLET BY TABLET BY TABLET BY Hospita MOUTH EVERY MOUTH EVERY MOUTH l DAY DAY EVERY DAY Clinics amlodipine amlodipine No amlodipine [place] 5 mg tablet 5 mg tablet 5 mg C [facility]i TAKE 1 TAKE 1 tablet ty TABLET BY TABLET BY TAKE 1 [facility] MOUTH EVERY MOUTH EVERY TABLET BY l DAY DAY MOUTH Clinics EVERY DAY atorvastati atorvastati No atorvastat [place] n 40 mg n 40 mg in 40 mg Commu ni tablet TAKE tablet TAKE tablet ty 1 TABLET BY 1 TABLET BY TAKE 1 Hospita MOUTH EVERY MOUTH EVERY TABLET BY l DAY DAY MOUTH Clinics EVERY DAY BD BD No BD [place] Ultra-Fine Ultra-Fine Ultra-Fine Communi [place]e Pen Kalee Pen Kalee Pen ty Needle 32 Needle 32 Needle 32 Hospita gauge x gauge x gauge x l " " " Clinics cholecalcif cholecalcif No cholecalci [place] ghada ghada ferol Communi (vitamin (vitamin (vitamin ty D3) 1,250 D3) 1,250 D3) 1,250 Hospita mcg (50,000 mcg (50,000 mcg l unit) unit) (50,000 Clinics capsule capsule unit) TAKE 1 TAKE 1 capsule CAPSULE CAPSULE TAKE 1 EVERY 15 EVERY 15 CAPSULE DAYS DAYS EVERY 15 DAYS clonazepam clonazepam No clonazepam [place] 0.5 mg 0.5 mg 0.5 mg Communi tablet TAKE tablet TAKE tablet ty 1 TABLET BY 1 TABLET BY TAKE 1 Hospita MOUTH TWICE MOUTH TWICE TABLET BY l A DAY A DAY MOUTH Clinic s DIRECTED DIRECTED TWICE A PRn PRn DAY DIRECTED PRn Dexilant 60 Dexilant 60 No Dexilant [place] mg capsule, mg capsule, 60 mg Communi [...] DAY EVERY DAY fenofibrate fenofibrate No fenofibrat [place] nanocrystal nanocrystal e C om[facility]i lized 145 lized 145 nanocrysta ty mg tablet mg tablet llized 145 Hospita TAKE 1 TAKE 1 mg tablet l TABLET BY TABLET BY TAKE 1 Cli nics MOUTH EVERY MOUTH EVERY TABLET BY DAY DAY MOUTH EVERY DAY glipizide glipizide No glipizide [place] ER 2.5 mg ER 2.5 mg ER [...] AND 1 TAB Tue TAB Tue TAB TUE FRI FRI WED FRI hydrocortis hydrocortis No hydrocorti [place] one 20 mg one 20 mg sone 20 mg Communi tablet TAKE tablet TAKE tablet ty 1 BID for 3 1 BID for 3 TAKE 1 BID Hospita days days for 3 days l [facility] Klor-Con 10 Klor-Con 10 No Klor-Con [place] mEq mEq 10 mEq Communi tablet,exte tablet,exte tablet,ext ty nded nded ended Hospita release 1 release 1 release 1 l po qd po qd po qd [facility] levothyroxi levothyroxi No levothyrox [place] ne 112 mcg ne 112 mcg ine 112 Communi tablet tablet mcg tablet ty [facility] levothyroxi levothyroxi No levothyrox [place] ne 125 mcg ne 125 mcg ine 125 Communi tablet 1 po tablet 1 po mcg tablet ty [facility]d [facility]d [facility] lid[facility]aine 5 lidocaine 5 No lidocaine [place] % topical % topical 5 % Commu ni patch APPLY patch APPLY topical ty 1 PATCH BY 1 PATCH BY patch Ho spita TOPICAL TOPICAL APPLY 1 l ROUTE ONCE ROUTE ONCE PATCH BY Clinics DAILY (MAY DAILY (MAY TOPICAL WEAR UP TO WEAR UP TO ROUTE ONCE 12HOURS.) 12HOURS.) DAILY (MAY WEAR UP TO 12HOURS.) liothyronin liothyronin No liothyroni [place] e 5 mcg e 5 mcg ne [...] center l Clinics methscopola methscopola No methscopol [place] mine 5 mg mine 5 mg amine 5 mg Communi tablet TAKE tablet TAKE tablet ty 1 TABLET BY 1 TABLET BY TAKE 1 Hospita MOUTH EVERY MOUTH EVERY TABLET BY l DAY DAY MOUTH Clinics EVERY DAY nitroglycer nitroglycer No 1 nitroglyce [place] in 0.4 mg in 0.4 mg rin 0.4 mg Communi sublingual sublingual sublingual ty tablet tablet tablet Hospita Place [address] 1 l tablet as tablet as tablet as Clinics needed by needed by needed by sublingual sublingual sublingual route. route. route. Omnitrope 5 Omnitrope 5 No Omnitrope [place] mg/1.5 mL mg/1.5 mL 5 mg/1.5 [facility]i (3.3 mg/mL) (3.3 mg/mL) mL (3.3 ty subcutaneou subcutaneou mg/mL) [facility] s cartridge s cartridge subcutaneo l 1 [...] Clinics sotalol 160 sotalol 160 No sotalol [place] mg tablet mg tablet 160 mg Com raz TAKE 1 TAKE 1 tablet ty TABLET BY TABLET BY TAKE 1 [facility] MOUTH TWICE MOUTH TWICE TABLET BY l A DAY A DAY MOUTH Clinics TWICE A DAY tramadol 50 tramadol 50 No 1 Q6H tramadol [place] mg tablet mg tablet 50 mg Comm uni Take 1 Take 1 tablet ty tablet tablet Take 1 Hospita every 6 every 6 tablet l hours by hours by every 6 Clin ics oral route. oral route. hours by oral route. warfarin 1 warfarin 1 No warfarin 1 [place] mg tablet mg tablet mg tablet Communi Takes MWF Takes MWF Takes MWF ty Hospita l Clinics warfarin 2 warfarin 2 No warfarin 2 [place] mg tablet mg tablet mg tablet Communi TAKE 1 TAKE 1 TAKE 1 ty TABLET BY TABLET BY TABLET BY Hospita MOUTH EVERY MOUTH EVERY MOUTH l DAY DAY EVERY DAY Clinics acetaminoph acetaminoph No acetaminop [place] en 300 en 300 hen 300 Communi mg-codeine mg-codeine mg-codeine ty 30 mg 30 mg 30 mg Hospita tablet Take tablet Take tablet l 1 tablet 1 tablet Take 1 Clini cs Q4-6 hr PRN Q4-6 hr PRN tablet for pain for pain Q4-6 hr PRN for pain amlodipine amlodipine No amlodipine [place] 5 mg tablet 5 mg tablet 5 mg C [facility]i TAKE 1 TAKE 1 tablet ty TABLET BY TABLET BY TAKE 1 [facility] MOUTH EVERY MOUTH EVERY TABLET BY l DAY DAY MOUTH Clinics EVERY DAY atorvastati atorvastati No atorvastat [place] n 40 mg n 40 mg in 40 mg Commu ni tablet TAKE tablet TAKE tablet ty 1 TABLET BY 1 TABLET BY TAKE 1 Hospita MOUTH EVERY MOUTH EVERY TABLET BY l DAY DAY MOUTH Clinics EVERY DAY BD BD No BD [place] Ultra-Fine Ultra-Fine Ultra-Fine Communi [place]e Pen [place]alee Pen [place]alee Pen ty Needle 32 Needle 32 Needle 32 Hospita gauge x gauge x gauge x l " " " Clinics cholecalcif cholecalcif No cholecalci [place] ghada ghada ferol Communi (vitamin (vitamin (vitamin ty D3) 1,250 D3) 1,250 D3) 1,250 Hospita mcg (50,000 mcg (50,000 mcg l unit) unit) (50,000 Clinics capsule capsule unit) TAKE 1 TAKE 1 capsule CAPSULE CAPSULE TAKE 1 EVERY 15 EVERY 15 CAPSULE DAYS DAYS EVERY 15 DAYS cholestyram cholestyram No cholestyra [place] ine (with ine (with mine (with Communi [...] DIRECTED BEDTIME DIRECTED clonazepam clonazepam No clonazepam [place] 0.5 mg 0.5 mg 0.5 mg Communi tablet TAKE tablet TAKE tablet ty 1 TABLET BY 1 TABLET BY TAKE 1 Hospita MOUTH TWICE MOUTH TWICE TABLET BY l A DAY A DAY MOUTH Clinic s DIRECTED DIRECTED TWICE A PRn PRn DAY DIRECTED PRn Dexilant 60 Dexilant 60 No Dexilant [place] mg capsule, mg capsule, 60 mg Communi delayed delayed capsule, ty release release delayed Hospit a TAKE 1 TAKE 1 release l CAPSULE BY CAPSULE BY TAKE 1 C linics MOUTH DAILY MOUTH DAILY CAPSULE BY NEEDS NEEDS MOUTH OFFICE OFFICE DAILY VISIT FOR VISIT FOR NEEDS ADDITIONAL ADDITIONAL OFFICE REFILLS REFILLS VISIT FOR ADDITIONAL REFILLS diphenoxyla diphenoxyla No diphenoxyl [place] te-atropine te-atropine ate-atropi Communi 2.5 2.5 ne [...] DAY EVERY DAY fenofibrate fenofibrate No fenofibrat [place] nanocrystal nanocrystal e C om[facility]i lized 145 lized 145 nanocrysta ty mg tablet mg tablet llized 145 Hospita TAKE 1 TAKE 1 mg tablet l TABLET BY TABLET BY TAKE 1 Cli nics MOUTH EVERY MOUTH EVERY TABLET BY DAY DAY MOUTH EVERY DAY glipizide glipizide No glipizide [place] ER 2.5 mg ER 2.5 mg ER [...] FRI WED FRI hydrocortis hydrocortis No hydrocorti [place] one 20 mg one 20 mg sone 20 mg Communi tablet TAKE tablet TAKE tablet ty 1 BID for 3 1 BID for 3 TAKE 1 BID Hospita days days for 3 days [facility] Klor-Con 10 Klor-Con 10 No Klor-Con [place] mEq mEq 10 mEq Communi tablet,exte tablet,exte tablet,ext ty nded nded ended Hospita release 1 release 1 release 1 l po qd po qd po qd [facility] levothyroxi levothyroxi No levothyrox [place] ne 112 mcg ne 112 mcg ine 112 Communi tablet tablet mcg tablet ty [facility] levothyroxi levothyroxi No levothyrox [place] ne 125 mcg ne 125 mcg ine 125 Communi tablet 1 po tablet 1 po mcg tablet ty qd qd 1 po qd [facility] lidocaine 5 lidocaine 5 No lidocaine [place] % topical % topical 5 % Commu ni patch APPLY patch APPLY topical ty 1 PATCH BY 1 PATCH BY patch Ho spita TOPICAL TOPICAL APPLY 1 l ROUTE ONCE ROUTE ONCE PATCH BY [facility] DAILY (MAY DAILY (MAY TOPICAL WEAR UP TO WEAR UP TO ROUTE ONCE 12HOURS.) 12HOURS.) DAILY (MAY WEAR UP TO 12HOURS.) liothyronin liothyronin No liothyroni [place] e 5 mcg e 5 mcg ne [...] tablet 1 ty qd qd po qd [facility] methscopola methscopola No methscopol [place] mine 5 mg mine 5 mg amine 5 mg Communi tablet TAKE tablet TAKE tablet ty 1 TABLET BY 1 TABLET BY TAKE 1 Hospita MOUTH EVERY MOUTH EVERY TABLET BY l DAY DAY MOUTH Clinics EVERY DAY nitroglycer nitroglycer No 1 nitroglyce [place] in 0.4 mg in 0.4 mg rin 0.4 mg Communi sublingual sublingual sublingual ty tablet tablet tablet Hospita Place [address] 1 l tablet as tablet as tablet as Clinics needed by needed by needed by sublingual sublingual sublingual route. route. route. Omnitrope 5 Omnitrope 5 No Omnitrope [place] mg/1.5 mL mg/1.5 mL 5 mg/1.5 C ommuni (3.3 mg/mL) (3.3 mg/mL) mL (3.3 ty subcutaneou subcutaneou mg/mL) [facility] s cartridge s cartridge subcutaneo l 1 [...] Clinics sotalol 160 sotalol 160 No sotalol [place] mg tablet mg tablet 160 mg Com raz TAKE 1 TAKE 1 tablet ty TABLET BY TABLET BY TAKE 1 [facility] michael MOUTH TWICE MOUTH TWICE TABLET BY l A DAY A DAY MOUTH Clinics TWICE A DAY tramadol 50 tramadol 50 No tramadol [place] mg tablet mg tablet 50 mg Comm uni TAKE 1 TAKE 1 tablet ty TABLET TABLET TAKE 1 Hospita EVERY 6 EVERY 6 TABLET l HOURS BY HOURS BY EVERY 6 Clin ics ORAL ROUTE. ORAL ROUTE. HOURS BY ORAL ROUTE. warfarin 1 warfarin 1 No warfarin 1 [place] mg tablet mg tablet mg tablet Communi Takes MWF Takes MWF Takes MWF ty Hospita l Clinics warfarin 2 warfarin 2 No warfarin 2 [place] mg tablet mg tablet mg tablet Communi TAKE 1 TAKE 1 TAKE 1 ty TABLET BY TABLET BY TABLET BY Hospita MOUTH EVERY MOUTH EVERY MOUTH l DAY DAY EVERY DAY Clinics amlodipine amlodipine No amlodipine [place] 5 mg tablet 5 mg tablet 5 mg C om[facility]i TAKE 1 TAKE 1 tablet ty TABLET BY TABLET BY TAKE 1 [facility] MOUTH EVERY MOUTH EVERY TABLET BY l DAY DAY MOUTH Clinics EVERY DAY atorvastati atorvastati No atorvastat [place] n 40 mg n 40 mg in 40 mg Commu ni tablet TAKE tablet TAKE tablet ty 1 TABLET BY 1 TABLET BY TAKE 1 Hospita MOUTH EVERY MOUTH EVERY TABLET BY l DAY DAY MOUTH Clinics EVERY DAY BD [place]e 2nd BD [place] 2nd No BD Kalee [place] Gen Pen Gen Pen 2nd Gen Commun i Needle 32 Needle 32 Pen Needle ty gauge x gauge x 32 gauge x Hos michael " 1 " 1 " 1 l TIME A DAY TIME A DAY TIME A DAY Clinics cholecalcif cholecalcif No cholecalci [place] ghada ghada ferol Communi (vitamin (vitamin (vitamin ty D3) 1,250 D3) 1,250 D3) 1,250 Hospita mcg (50,000 mcg (50,000 mcg l unit) unit) (50,000 Clinics capsule capsule unit) TAKE 1 TAKE 1 capsule CAPSULE CAPSULE TAKE 1 EVERY 15 EVERY 15 CAPSULE DAYS DAYS EVERY 15 DAYS clonazepam clonazepam No clonazepam [place] 0.5 mg 0.5 mg 0.5 mg Communi tablet TAKE tablet TAKE tablet ty 1 TABLET BY 1 TABLET BY TAKE 1 Hospita MOUTH TWICE MOUTH TWICE TABLET BY l A DAY A DAY MOUTH Clinic s DIRECTED DIRECTED TWICE A PRn PRn DAY DIRECTED PRn Eliquis 5 Eliquis 5 No Eliquis 5 [place] mg tablet mg tablet mg tablet Communi TAKE 1 TAKE 1 TAKE 1 ty TABLET BY TABLET BY TABLET BY Hospita MOUTH 2 MOUTH 2 MOUTH 2 l (TWO) TIMES (TWO) TIMES (TWO) Clinics DAILY. DAILY. TIMES INDICATIONS INDICATIONS DAILY. ATRIAL ATRIAL INDICATION FIBRILLATIO FIBRILLATIO S ATRIAL N N FIBRILLATI ON fenofibrate fenofibrate No fenofibrat [place] nanocrystal nanocrystal e C ommuni lized 145 lized 145 nanocrysta ty mg tablet mg tablet llized 145 Hospita TAKE 1 TAKE 1 mg tablet l TABLET BY TABLET BY TAKE 1 Cli nics MOUTH EVERY MOUTH EVERY TABLET BY DAY DAY MOUTH EVERY DAY Humatrope 6 Humatrope 6 No Humatrope [place] mg (18 mg (18 6 mg (18 Communi unit) unit) unit) ty injection injection injection Hospita cartridge cartridge cartridge l inject 0.2 inject 0.2 inject 0.2 Clinics ml SQ daily ml SQ daily ml SQ daily hydrocortis hydrocortis No hydrocorti [place] one 20 mg one 20 mg sone [...] HALF IN PM isosorbide isosorbide No isosorbide [place] mononitrate mononitrate mononitrat Communi ER 30 mg ER 30 mg e ER 30 mg t y tablet,exte tablet,exte tablet,ext Hospita nded nded ended l release 24 release 24 release 24 Clinics hr TAKE 1 hr TAKE 1 hr TAKE 1 TABLET BY TABLET BY TABLET BY MOUTH EVERY MOUTH EVERY MOUTH DAY DAY EVERY DAY Klor-Con 10 Klor-Con 10 No Klor-Con [place] mEq mEq 10 mEq Communi tablet,exte tablet,exte tablet,ext ty nded nded ended Hospita release release release l TAKE 1 TAKE 1 TAKE 1 Clinics TABLET BY TABLET BY TABLET BY MOUTH EVERY MOUTH EVERY MOUTH DAY WITH DAY WITH EVERY DAY FOOD FOOD WITH FOOD levothyroxi levothyroxi No levothyrox [place] ne 112 mcg ne 112 mcg ine [...] Hospita l Clinics mirtazapine mirtazapine No mirtazapin [place] 15 mg 15 mg e 15 mg Communi tablet TAKE tablet TAKE tablet ty 1 TABLET BY 1 TABLET BY TAKE 1 Hospita MOUTH MOUTH TABLET BY l EVERYDAY AT EVERYDAY AT MOUTH Clinics BEDTIME BEDTIME EVERYDAY AT BEDTIME nitroglycer nitroglycer No 1 nitroglyce [place] in 0.4 mg in 0.4 mg rin [...] Santyl 250 Santyl 250 No Santyl 250 [place] unit/gram unit/gram unit/gram Communi topical topical topical ty ointment ointment ointment [facility] APPLY A APPLY A APPLY A l DIONY DIONY DIONY Clinics THICK THICK THICK AMOUNT TO AMOUNT TO AMOUNT TO WOUND 3 WOUND 3 WOUND 3 TIMES A TIMES A TIMES A WEEK WEEK WEEK simvastatin simvastatin No simvastati [place] 40 mg 40 mg n 40 mg Communi tablet TAKE tablet TAKE tablet ty 1 TABLET 1 TABLET TAKE 1 Hospi ta (40 MG) BY (40 MG) BY TABLET (40 l MOUTH DAILY MOUTH DAILY MG) BY Clinics IN THE IN THE MOUTH EVENING NOT EVENING NOT DAILY IN TAKING TAKING THE EVENING NOT TAKING sotalol 160 sotalol 160 No sotalol [place] mg tablet mg tablet 160 mg Com raz TAKE 1 TAKE 1 tablet ty TABLET BY TABLET BY TAKE 1 Hos [facility] MOUTH EVERY MOUTH EVERY TABLET BY l DAY DAY MOUTH Clinics EVERY DAY tramadol 50 tramadol 50 No tramadol [place] mg tablet mg tablet 50 mg Comm uni TAKE 1 TAKE 1 tablet ty TABLET TABLET TAKE 1 Hospita EVERY 6 EVERY 6 TABLET l HOURS BY HOURS BY EVERY 6 Clin ics ORAL ROUTE. ORAL ROUTE. HOURS BY ORAL ROUTE. amlodipine amlodipine No amlodipine [place] 5 mg tablet 5 mg tablet 5 mg C ommuni TAKE 1 TAKE 1 tablet ty TABLET BY TABLET BY TAKE 1 Hos [facility] MOUTH EVERY MOUTH EVERY TABLET BY l DAY DAY MOUTH Clinics EVERY DAY atorvastati atorvastati No atorvastat [place] n 40 mg n 40 mg in 40 mg Commu ni tablet TAKE tablet TAKE tablet ty 1 TABLET BY 1 TABLET BY TAKE 1 Hospita MOUTH EVERY MOUTH EVERY TABLET BY l DAY DAY MOUTH Clinics EVERY DAY BD [place]alee 2nd BD Kalee 2nd No BD Kalee [place] Gen Pen Gen Pen 2nd Gen Commun i Needle 32 Needle 32 Pen Needle ty gauge x gauge x 32 gauge x Hos michael " 1 " 1 " 1 l TIME A DAY TIME A DAY TIME A DAY Clinics cholecalcif cholecalcif No cholecalci [place] ghada ghada ferol [facility] (vitamin (vitamin (vitamin ty D3) 1,250 D3) 1,250 D3) 1,250 Hospita mcg (50,000 mcg (50,000 mcg l unit) unit) (50,000 Clinics capsule capsule unit) TAKE 1 TAKE 1 capsule CAPSULE CAPSULE TAKE 1 EVERY 15 EVERY 15 CAPSULE DAYS DAYS EVERY 15 DAYS clonazepam clonazepam No clonazepam [place] 0.5 mg 0.5 mg 0.5 mg [facility] tablet TAKE tablet TAKE tablet ty 1 TABLET BY 1 TABLET BY TAKE 1 Hospita MOUTH TWICE MOUTH TWICE TABLET BY l A DAY A DAY MOUTH Clinic s DIRECTED DIRECTED TWICE A PRn PRn DAY DIRECTED PRn dicyclomine dicyclomine No 1capsul TID dicyclomin [place] 10 mg 10 mg e(s) e 10 mg [facility] capsule capsule capsule ty Take 1 Take 1 Take 1 Hospita capsule 3 capsule 3 capsule 3 l times a day times a day times a Clinics by oral by oral day by route as route as oral route needed. needed. as needed. doxycycline doxycycline No 1capsul BID doxycyclin [place] hyclate 100 hyclate 100 e(s) e hyclate [facility] mg capsule mg capsule 100 mg t y Take 1 Take 1 capsule [facility]ospita capsule capsule Take 1 l twice a day twice a day capsule Clinics by oral by oral twice a route. route. day by oral route. Eliquis 5 Eliquis 5 No Eliquis 5 [place] mg tablet mg tablet mg tablet [facility] TAKE 1 TAKE 1 TAKE 1 ty TABLET BY TABLET BY TABLET BY Hospita MOUTH 2 MOUTH 2 MOUTH 2 l (TWO) TIMES (TWO) TIMES (TWO) Clinics DAILY. DAILY. TIMES INDICATIONS INDICATIONS DAILY. ATRIAL ATRIAL INDICATION FIBRILLATIO FIBRILLATIO S ATRIAL N N FIBRILLATI ON Humatrope 6 Humatrope 6 No Humatrope [place] mg (18 mg (18 6 mg (18 [facility] unit) unit) unit) ty injection injection injection [facility]osp[facility] cartridge cartridge cartridge l inject 0.2 inject 0.2 inject 0.2 Clinics ml SQ daily ml SQ daily ml SQ daily hydrocortis hydrocortis No hydrocorti [place] one 20 mg one 20 mg sone [...] HALF IN PM isosorbide isosorbide No isosorbide [place] mononitrate mononitrate mononitrat [facility] ER 30 mg ER 30 mg e ER 30 mg t y tablet,exte tablet,exte tablet,ext Hospita nded nded ended l release 24 release 24 release 24 Clinics hr TAKE 1 hr TAKE 1 hr TAKE 1 TABLET BY TABLET BY TABLET BY MOUTH EVERY MOUTH EVERY MOUTH DAY DAY EVERY DAY Klor-Con 10 Klor-Con 10 No Klor-Con [place] mEq mEq 10 mEq [facility] tablet,exte tablet,exte tablet,ext ty nded nded ended Hospita release release release l TAKE 1 TAKE 1 TAKE 1 Clinics TABLET BY TABLET BY TABLET BY MOUTH EVERY MOUTH EVERY MOUTH DAY WITH DAY WITH EVERY DAY FOOD FOOD WITH FOOD levothyroxi levothyroxi No levothyrox [place] ne 112 mcg ne 112 mcg ine [...] Hospita l Clinics mirtazapine mirtazapine No mirtazapin [place] 15 mg 15 mg e 15 mg [facility] tablet TAKE tablet TAKE tablet ty 1 TABLET BY 1 TABLET BY TAKE 1 Hospita MOUTH MOUTH TABLET BY l EVERYDAY AT EVERYDAY AT MOUTH Clinics BEDTIME BEDTIME EVERYDAY AT BEDTIME nitroglycer nitroglycer No 1 nitroglyce [place] in 0.4 mg in 0.4 mg rin [...] Santyl 250 Santyl 250 No Santyl 250 [place] unit/gram unit/gram unit/gram [facility] topical topical topical ty ointment ointment ointment [facility] APPLY A APPLY A APPLY A l DIONY [facility] THICK THICK THICK AMOUNT TO AMOUNT TO AMOUNT TO WOUND 3 WOUND 3 WOUND 3 TIMES A TIMES A TIMES A WEEK WEEK WEEK simvastatin simvastatin No simvastati [place] 40 mg 40 mg n 40 mg [facility] tablet TAKE tablet TAKE tablet ty 1 TABLET 1 TABLET TAKE 1 Hospi ta (40 MG) BY (40 MG) BY TABLET (40 l MOUTH DAILY MOUTH DAILY MG) BY Clinics IN THE IN THE MOUTH EVENING NOT EVENING NOT DAILY IN TAKING TAKING THE EVENING NOT TAKING sotalol 160 sotalol 160 No sotalol [place] mg tablet mg tablet 160 mg Com raz TAKE 1 TAKE 1 tablet ty TABLET BY TABLET BY TAKE 1 [facility] MOUTH EVERY MOUTH EVERY TABLET BY l DAY DAY MOUTH Clinics EVERY DAY tramadol 50 tramadol 50 No tramadol [place] mg tablet mg tablet 50 mg Comm uni TAKE 1 TAKE 1 tablet ty TABLET BY TABLET BY TAKE 1 [facility] MOUTH EVERY MOUTH EVERY TABLET BY l 6 HOURS 6 HOURS MOUTH Clinics EVERY 6 HOURS amlodipine amlodipine No amlodipine [place] 5 mg tablet 5 mg tablet 5 mg C [facility] TAKE 1 TAKE 1 tablet ty TABLET BY TABLET BY TAKE 1 [facility] MOUTH EVERY MOUTH EVERY TABLET BY l DAY DAY MOUTH Clinics EVERY DAY atorvastati atorvastati No atorvastat [place] n 40 mg n 40 mg in 40 mg Commu ni tablet TAKE tablet TAKE tablet ty 1 TABLET BY 1 TABLET BY TAKE 1 Hospita MOUTH EVERY MOUTH EVERY TABLET BY l DAY DAY MOUTH Clinics EVERY DAY BD [facility]e 2nd BD [facility] 2nd No BD Kalee [place] Gen Pen Gen Pen 2nd Gen Commun i Needle 32 Needle 32 Pen Needle ty gauge x gauge x 32 gauge x [facility] " 1 " 1 " 1 l TIME A DAY TIME A DAY TIME A DAY Clinics cholecalcif cholecalcif No cholecalci [place] ghada ghada ferol [facility] (vitamin (vitamin (vitamin ty D3) 1,250 D3) 1,250 D3) 1,250 [facility] mcg (50,000 mcg (50,000 mcg l unit) unit) (50,000 Clinics capsule capsule unit) TAKE 1 TAKE 1 capsule CAPSULE CAPSULE TAKE 1 EVERY 15 EVERY 15 CAPSULE DAYS DAYS EVERY 15 DAYS clonazepam clonazepam No clonazepam [place] 0.5 mg 0.5 mg 0.5 mg [facility] tablet TAKE tablet TAKE tablet ty 1 TABLET BY 1 TABLET BY TAKE 1 Hospita MOUTH TWICE MOUTH TWICE TABLET BY l A DAY A DAY MOUTH Clinic s DIRECTED DIRECTED TWICE A PRn PRn DAY DIRECTED PRn dicyclomine dicyclomine No dicyclomin [place] 10 mg 10 mg e 10 mg [facility] capsule capsule capsule ty TAKE 1 TAKE 1 TAKE 1 [facility]ospita CAPSULE BY CAPSULE BY CAPSULE BY l MOUTH THREE MOUTH THREE MOUTH Clinics TIMES A DAY TIMES A DAY THREE NEEDED NEEDED TIMES A DAY NEEDED doxycycline doxycycline No doxycyclin [place] hyclate 100 hyclate 100 e hyclate [facility] mg capsule mg capsule 100 mg t y TAKE 1 TAKE 1 capsule [facility]ospita CAPSULE BY CAPSULE BY TAKE 1 l MOUTH TWICE MOUTH TWICE CAPSULE BY Clinics A DAY A DAY MOUTH TWICE A DAY Eliquis 5 Eliquis 5 No Eliquis 5 [place] mg tablet mg tablet mg tablet [facility] TAKE 1 TAKE 1 TAKE 1 ty TABLET BY TABLET BY TABLET BY Hospita MOUTH 2 MOUTH 2 MOUTH 2 l (TWO) TIMES (TWO) TIMES (TWO) Clinics DAILY. DAILY. TIMES INDICATIONS INDICATIONS DAILY. ATRIAL ATRIAL INDICATION FIBRILLATIO FIBRILLATIO S ATRIAL N N FIBRILLATI ON Humatrope 6 Humatrope 6 No Humatrope [place] mg (18 mg (18 6 mg (18 [facility] unit) unit) unit) ty injection injection injection [facility] cartridge cartridge cartridge l INJECT INJECT INJECT Clinics 0.3MG 0.3MG 0.3MG SUBCUTANEOU SUBCUTANEOU SUBCUTANEO SLY EVERY SLY EVERY USLY EVERY DAY DAY DAY hydrocortis hydrocortis No hydrocorti [place] one 20 mg one 20 mg sone [...] HALF IN PM isosorbide isosorbide No isosorbide [place] mononitrate mononitrate mononitrat [facility] ER 30 mg ER 30 mg e ER 30 mg t y tablet,exte tablet,exte tablet,ext [facility]ospita nded nded ended l release 24 release 24 release 24 Clinics hr TAKE 1 hr TAKE 1 hr TAKE 1 TABLET BY TABLET BY TABLET BY MOUTH EVERY MOUTH EVERY MOUTH DAY DAY EVERY DAY Klor-Con 10 Klor-Con 10 No Klor-Con [place] mEq mEq 10 mEq [facility] tablet,exte tablet,exte tablet,ext ty nded nded ended [facility]ospita release release release l TAKE 1 TAKE 1 TAKE 1 Clinics TABLET BY TABLET BY TABLET BY MOUTH EVERY MOUTH EVERY MOUTH DAY WITH DAY WITH EVERY DAY FOOD FOOD WITH FOOD levothyroxi levothyroxi No levothyrox [place] ne 112 mcg ne 112 mcg ine [...] Hospita l Clinics mirtazapine mirtazapine No mirtazapin [place] 15 mg 15 mg e 15 mg [facility] tablet TAKE tablet TAKE tablet ty 1 TABLET BY 1 TABLET BY TAKE 1 Hospita MOUTH MOUTH TABLET BY l EVERYDAY AT EVERYDAY AT MOUTH Clinics BEDTIME BEDTIME EVERYDAY AT BEDTIME Myrbetriq Myrbetriq No 1 Q1D Myrbetriq [place] 25 mg 25 mg 25 mg [facility] tablet,exte tablet,exte tablet,ext ty nded nded ended Hospita release release release l Take 1 Take 1 Take 1 Clinics tablet tablet tablet every day every day every day by oral by oral by oral route. route. route. nitroglycer nitroglycer No 1 nitroglyce [place] in 0.4 mg in 0.4 mg rin [...] Santyl 250 Santyl 250 No Santyl 250 [place] unit/gram unit/gram unit/gram [facility] topical topical topical ty ointment ointment ointment [facility] APPLY A APPLY A APPLY A l DIONY DIONY DIONY Clinics THICK THICK THICK AMOUNT TO AMOUNT TO AMOUNT TO WOUND 3 WOUND 3 WOUND 3 TIMES A TIMES A TIMES A WEEK WEEK WEEK simvastatin simvastatin No simvastati [place] 40 mg 40 mg n 40 mg [facility] tablet TAKE tablet TAKE tablet ty 1 TABLET 1 TABLET TAKE 1 Hospi ta (40 MG) BY (40 MG) BY TABLET (40 l MOUTH DAILY MOUTH DAILY MG) BY Clinics IN THE IN THE MOUTH EVENING NOT EVENING NOT DAILY IN TAKING TAKING THE EVENING NOT TAKING sotalol 160 sotalol 160 No sotalol [place] mg tablet mg tablet 160 mg Com raz TAKE 1 TAKE 1 tablet ty TABLET BY TABLET BY TAKE 1 [facility] MOUTH EVERY MOUTH EVERY TABLET BY l DAY DAY MOUTH Clinics EVERY DAY tramadol 50 tramadol 50 No tramadol [place] mg tablet mg tablet 50 mg Comm uni TAKE 1 TAKE 1 tablet ty TABLET BY TABLET BY TAKE 1 [facility] MOUTH EVERY MOUTH EVERY TABLET BY l 6 HOURS 6 HOURS MOUTH Clinics EVERY 6 HOURS amlodipine amlodipine No amlodipine [place] 5 mg tablet 5 mg tablet 5 mg C [facility] TAKE 1 TAKE 1 tablet ty TABLET BY TABLET BY TAKE 1 [facility] MOUTH EVERY MOUTH EVERY TABLET BY l DAY DAY MOUTH Clinics EVERY DAY atorvastati atorvastati No atorvastat [place] n 40 mg n 40 mg in 40 mg Commu ni tablet TAKE tablet TAKE tablet ty 1 TABLET BY 1 TABLET BY TAKE 1 Hospita MOUTH EVERY MOUTH EVERY TABLET BY l DAY DAY MOUTH Clinics EVERY DAY BD [facility]alee 2nd BD [facility]ale[facility] 2nd No BD Kalee [place] Gen Pen Gen Pen 2nd Gen Commun i Needle 32 Needle 32 Pen Needle ty gauge x gauge x 32 gauge x [facility] " 1 " 1 " 1 l TIME A DAY TIME A DAY TIME A DAY Clinics cholecalcif cholecalcif No cholecalci [place] ghada ghada ferol [facility] (vitamin (vitamin (vitamin ty D3) 1,250 D3) 1,250 D3) 1,250 [facility]osp[facility] mcg (50,000 mcg (50,000 mcg l unit) unit) (50,000 Clinics capsule capsule unit) TAKE 1 TAKE 1 capsule CAPSULE CAPSULE TAKE 1 EVERY 15 EVERY 15 CAPSULE DAYS DAYS EVERY 15 DAYS clonazepam clonazepam No clonazepam [place] 0.5 mg 0.5 mg 0.5 mg [facility] tablet TAKE tablet TAKE tablet ty 1 TABLET BY 1 TABLET BY TAKE 1 Hospita MOUTH TWICE MOUTH TWICE TABLET BY l A DAY A DAY MOUTH Clinic s DIRECTED DIRECTED TWICE A PRn PRn DAY DIRECTED PRn dicyclomine dicyclomine No dicyclomin [place] 10 mg 10 mg e 10 mg [...] DAY EVERY DAY doxycycline doxycycline No doxycyclin [place] hyclate 100 hyclate 100 e hyclate [facility] mg capsule mg capsule 100 mg t y TAKE 1 TAKE 1 capsule [facility]ita CAPSULE BY CAPSULE BY TAKE 1 l MOUTH TWICE MOUTH TWICE CAPSULE BY Clinics A DAY A DAY MOUTH TWICE A DAY Eliquis 2.5 Eliquis 2.5 No Eliquis [place] mg tablet mg tablet 2.5 mg Com raz TAKE 1 TAKE 1 tablet ty TABLET BY TABLET BY TAKE 1 [facility] MOUTH TWICE MOUTH TWICE TABLET BY l A DAY A DAY MOUTH Clinics TWICE A DAY Eliquis 5 Eliquis 5 No Eliquis 5 [place] mg tablet mg tablet mg tablet [facility] TAKE 1 TAKE 1 TAKE 1 ty TABLET BY TABLET BY TABLET BY Hospita MOUTH 2 MOUTH 2 MOUTH 2 l (TWO) TIMES (TWO) TIMES (TWO) Clinics DAILY. DAILY. TIMES INDICATIONS INDICATIONS DAILY. ATRIAL ATRIAL INDICATION FIBRILLATIO FIBRILLATIO S ATRIAL N N FIBRILLATI ON glipizide glipizide No glipizide [place] ER 2.5 mg ER 2.5 mg ER 2.5 mg [facility] tablet, tablet, tablet, ty extended extended extended [facility] release 24 release 24 release 24 l hr hr hr Clinics Humatrope 6 Humatrope 6 No Humatrope [place] mg (18 mg (18 6 mg (18 Communi unit) unit) unit) ty injection injection injection [facility] cartridge cartridge cartridge l INJECT INJECT INJECT Clinics 0.3MG 0.3MG 0.3MG SUBCUTANEOU SUBCUTANEOU SUBCUTANEO SLY EVERY SLY EVERY USLY EVERY DAY DAY DAY hydrocortis hydrocortis No hydrocorti [place] one 20 mg one 20 mg sone 20 mg [facility] tablet TAKE tablet TAKE tablet ty 2 TABLETS 2 TABLETS TAKE 2 [facility] BY MOUTH BY MOUTH TABLETS BY l EVERY DAY EVERY DAY MOUTH Clin ics IN THE IN THE EVERY DAY MORNING MORNING IN THE MORNING isosorbide isosorbide No isosorbide [place] mononitrate mononitrate mononitrat Commun[facility] ER 30 mg ER 30 mg e ER 30 mg t y tablet,exte tablet,exte tablet,ext Hospita nded nded ended l release 24 release 24 release 24 Clinics hr TAKE 1 hr TAKE 1 hr TAKE 1 TABLET BY TABLET BY TABLET BY MOUTH EVERY MOUTH EVERY MOUTH DAY DAY EVERY DAY Klor-Con 10 Klor-Con 10 No Klor-Con [place] mEq mEq 10 mEq [facility] tablet,exte tablet,exte tablet,ext ty nded nded ended Hospita release release release l TAKE 1 TAKE 1 TAKE 1 Clinics TABLET BY TABLET BY TABLET BY MOUTH EVERY MOUTH EVERY MOUTH DAY WITH DAY WITH EVERY DAY FOOD FOOD WITH FOOD levothyroxi levothyroxi No levothyrox [place] ne 112 mcg ne 112 mcg ine 112 Communi tablet 1 tablet 1 mcg tablet t y TAB DAILY TAB DAILY 1 TAB Hosp meryl 1/2 HR. 1/2 HR. DAILY 1/2 l BEFORE BEFORE HR. BEFORE Clini cs BREAKFAST BREAKFAST BREAKFAST WITH WATER WITH WATER WITH WATER lidocaine 5 lidocaine 5 No lidocaine [place] % topical % topical 5 % Commu ni patch patch topical ty patch [facility] liothyronin liothyronin No liothyroni [place] e 5 mcg e 5 mcg ne 5 mcg Commu ni tablet tablet tablet ty [facility] losartan losartan No losartan Swe madeleine 100 mg 100 mg 100 mg Communi tablet 1 po tablet 1 po tablet 1 ty qd qd po qd [facility] mirtazapine mirtazapine No mirtazapin [place] 15 mg 15 mg e 15 mg Commun[facility] tablet TAKE tablet TAKE tablet ty 1 TABLET BY 1 TABLET BY TAKE 1 [facility] MOUTH MOUTH TABLET BY l EVERYDAY AT EVERYDAY AT MOUTH Clinics BEDTIME BEDTIME EVERYDAY AT BEDTIME Myrbetriq Myrbetriq No 1 Q1D Myrbetriq [place] 25 mg 25 mg 25 mg [facility] tablet,exte tablet,exte tablet,ext ty nded nded ended Hospita release release release l Take 1 Take 1 Take 1 Clinics tablet tablet tablet every day every day every day by oral by oral by oral route. route. route. nitroglycer nitroglycer No 1 nitroglyce [place] in 0.4 mg in 0.4 mg rin 0.4 mg Communi sublingual sublingual sublingual ty tablet tablet tablet [facility] [address] 1 l tablet as tablet as tablet as Clinics needed by needed by needed by sublingual sublingual sublingual route. route. route. omeprazole omeprazole No omeprazole [place] 20 mg 20 mg 20 mg Communi [...] DAY l Clinics pantoprazol pantoprazol No pantoprazo [place] e 40 mg e 40 mg le 40 mg Commu ni tablet,indira tablet,indira tablet,del ty yed release yed release ayed H ospita release l Clinics potassium potassium No potassium [place] chloride ER chloride ER chloride Communi 20 mEq 20 mEq ER 20 mEq ty tablet,exte tablet,exte tablet,ext Hospita nded nded ended l release(par release(par release(nc Clinics t/cryst) t/cryst) rt/cryst) TAKE 1 TAKE 1 TAKE 1 TABLET BY TABLET BY TABLET BY MOUTH EVERY MOUTH EVERY MOUTH DAY DAY EVERY DAY Santyl 250 Santyl 250 No Santyl 250 [place] unit/gram unit/gram unit/gram [facility] topical topical topical ty ointment ointment ointment [facility] APPLY A APPLY A APPLY A l DIONY [facility] THICK THICK THICK AMOUNT TO AMOUNT TO AMOUNT TO WOUND 3 WOUND 3 WOUND 3 TIMES A TIMES A TIMES A WEEK WEEK WEEK simvastatin simvastatin No simvastati [place] 40 mg 40 mg n 40 mg [facility] tablet TAKE tablet TAKE tablet ty 1 TABLET 1 TABLET TAKE 1 Hospi ta (40 MG) BY (40 MG) BY TABLET (40 l MOUTH DAILY MOUTH DAILY MG) BY Clinics IN THE IN THE MOUTH EVENING NOT EVENING NOT DAILY IN TAKING TAKING THE EVENING NOT TAKING sotalol 160 sotalol 160 No sotalol [place] mg tablet mg tablet 160 mg Com raz TAKE 1 TAKE 1 tablet ty TABLET BY TABLET BY TAKE 1 [facility] MOUTH EVERY MOUTH EVERY TABLET BY l DAY DAY MOUTH Clinics EVERY DAY tramadol 50 tramadol 50 No tramadol [place] mg tablet mg tablet 50 mg Comm uni TAKE 1 TAKE 1 tablet ty TABLET BY TABLET BY TAKE 1 [facility] MOUTH AT MOUTH AT TABLET BY l BEDTIME AND BEDTIME AND MOUTH AT Clinics IN MORNING IN MORNING BEDTIME AND IN MORNING amlodipine amlodipine No amlodipine [place] 5 mg tablet 5 mg tablet 5 mg C [facility] TAKE 1 TAKE 1 tablet ty TABLET BY TABLET BY TAKE 1 [facility] MOUTH EVERY MOUTH EVERY TABLET BY l DAY DAY MOUTH Clinics EVERY DAY BD [facility] 2nd BD [facility] 2nd No BD Kalee [place] Gen Pen Gen Pen 2nd Gen Commun i Needle 32 Needle 32 Pen Needle ty gauge x gauge x 32 gauge x [facility] " 1 " 1 " 1 l TIME A DAY TIME A DAY TIME A DAY Clinics cholecalcif cholecalcif No cholecalci [place] ghada ghada ferol [facility] (vitamin (vitamin (vitamin ty D3) 1,250 D3) 1,250 D3) 1,250 [facility]ospita mcg (50,000 mcg (50,000 mcg l unit) unit) (50,000 Clinics capsule capsule unit) TAKE 1 TAKE 1 capsule CAPSULE CAPSULE TAKE 1 EVERY 15 EVERY 15 CAPSULE DAYS DAYS EVERY 15 DAYS clonazepam clonazepam No clonazepam [place] 0.5 mg 0.5 mg 0.5 mg Communi [...] DAY EVERY DAY famotidine famotidine No famotidine [place] 20 mg 20 mg 20 mg [facility] tablet Take tablet Take tablet ty 1 tablet 1 tablet Take 1 Hospi ta daily by daily by tablet l mouth mouth daily by Clinics mouth ferrous ferrous No ferrous [place] sulfate 220 sulfate 220 sulfate Communi mg (44 mg mg (44 mg 220 mg (44 ty iron)/5 mL iron)/5 mL mg iron)/5 Hospita oral elixir oral elixir mL oral l Take 5 ML Take 5 ML elixir Cli nics BID by BID by Take 5 ML mouth mouth BID by mouth glipizide glipizide No glipizide [place] ER 2.5 mg ER 2.5 mg ER 2.5 mg Communi tablet, tablet, tablet, ty extended extended extended [facility] release 24 release 24 release 24 l hr hr hr Clinics Humatrope 6 Humatrope 6 No Humatrope [place] mg (18 mg (18 6 mg (18 Communi unit) unit) unit) ty injection injection injection [facility] cartridge cartridge cartridge l INJECT INJECT INJECT Clinics 0.3MG 0.3MG 0.3MG SUBCUTANEOU SUBCUTANEOU SUBCUTANEO SLY EVERY SLY EVERY USLY EVERY DAY DAY DAY hydrocortis hydrocortis No hydrocorti [place] one 20 mg one 20 mg sone 20 mg [facility] tablet TAKE tablet TAKE tablet ty 2 TABLETS 2 TABLETS TAKE 2 [facility] BY MOUTH BY MOUTH TABLETS BY l EVERY DAY EVERY DAY MOUTH Clin ics IN THE IN THE EVERY DAY MORNING MORNING IN THE MORNING isosorbide isosorbide No isosorbide [place] mononitrate mononitrate mononitrat Communi ER 30 mg ER 30 mg e ER 30 mg t y tablet,exte tablet,exte tablet,ext Hospita nded nded ended l release 24 release 24 release 24 Clinics hr TAKE 1 hr TAKE 1 hr TAKE 1 TABLET BY TABLET BY TABLET BY MOUTH EVERY MOUTH EVERY MOUTH DAY DAY EVERY DAY Klor-Con 10 Klor-Con 10 No Klor-Con [place] mEq mEq 10 mEq Commun[facility] tablet,exte tablet,exte tablet,ext ty nded nded ended Hospita release release release l TAKE 1 TAKE 1 TAKE 1 Clinics TABLET BY TABLET BY TABLET BY MOUTH EVERY MOUTH EVERY MOUTH DAY WITH DAY WITH EVERY DAY FOOD FOOD WITH FOOD levothyroxi levothyroxi No levothyrox [place] ne 112 mcg ne 112 mcg ine 112 Communi tablet 1 tablet 1 mcg tablet t y TAB DAILY TAB DAILY 1 TAB [facility] 1/2 HR. 1/2 HR. DAILY 1/2 l BEFORE BEFORE HR. BEFORE Clini cs BREAKFAST BREAKFAST BREAKFAST WITH WATER WITH WATER WITH WATER lidocaine 5 lidocaine 5 No lidocaine [place] % topical % topical 5 % Commu ni patch patch topical ty patch [facility] liothyronin liothyronin No liothyroni [place] e 5 mcg e 5 mcg ne 5 mcg Commu ni tablet tablet tablet ty [facility] mirtazapine mirtazapine No mirtazapin [place] 15 mg 15 mg e 15 mg Communi tablet TAKE tablet TAKE tablet ty 1 TABLET BY 1 TABLET BY TAKE 1 Hospita MOUTH MOUTH TABLET BY l EVERYDAY AT EVERYDAY AT MOUTH Clinics BEDTIME BEDTIME EVERYDAY AT BEDTIME nitroglycer nitroglycer No 1 nitroglyce [place] in 0.4 mg in 0.4 mg rin 0.4 mg Communi sublingual sublingual sublingual ty tablet [facility] [address] 1 l tablet as tablet as tablet as Clinics needed by needed by needed by sublingual sublingual sublingual route. route. route. omeprazole omeprazole No omeprazole [place] 20 mg 20 mg 20 mg Communi [...] ty gauge TEST gauge TEST gauge TEST [facility] TWICE A DAY TWICE A DAY TWICE [...] A DAY TEST TWICE Hospita A DAY [facility] pantoprazol pantoprazol No pantoprazo [place] e 40 mg e 40 mg le 40 mg Commu ni tablet,indira tablet,indira tablet,del ty yed release yed release ayed H ospita Take 1 Take 1 release l tablet BID tablet BID Take 1 C linics by mouth by mouth tablet BID by mouth potassium potassium No potassium [place] chloride ER chloride ER chloride Communi 20 mEq 20 mEq ER 20 mEq ty tablet,exte tablet,exte tablet,ext Hospita nded nded ended l release(par release(par release(pa Clinics t/cryst) t/cryst) rt/cryst) TAKE 1 TAKE 1 TAKE 1 TABLET BY TABLET BY TABLET BY MOUTH EVERY MOUTH EVERY MOUTH DAY DAY EVERY DAY Santyl 250 Santyl 250 No Santyl 250 [place] unit/gram unit/gram unit/gram [facility] topical topical topical ty ointment ointment ointment [facility] APPLY A [facility] THICK THICK THICK AMOUNT TO AMOUNT TO AMOUNT TO WOUND 3 WOUND 3 WOUND 3 TIMES A TIMES A TIMES A WEEK WEEK WEEK sotalol 160 sotalol 160 No sotalol [place] mg tablet mg tablet 160 mg Com raz TAKE 1 TAKE 1 tablet ty TABLET BY TABLET BY TAKE 1 [facility] MOUTH EVERY MOUTH EVERY TABLET BY l DAY DAY MOUTH Clinics EVERY DAY tramadol 50 tramadol 50 No tramadol [place] mg tablet mg tablet 50 mg Comm uni TAKE 1 TAKE 1 tablet ty TABLET BY TABLET BY TAKE 1 [facility] MOUTH AT MOUTH AT TABLET BY l BEDTIME AND BEDTIME AND MOUTH AT Clinics IN MORNING IN MORNING BEDTIME AND IN MORNING amlodipine amlodipine No amlodipine [place] 5 mg tablet 5 mg tablet 5 mg [facility] TAKE 1 TAKE 1 tablet ty TABLET BY TABLET BY TAKE 1 [facility] MOUTH EVERY MOUTH EVERY TABLET BY l DAY DAY MOUTH Clinics EVERY DAY Bactrim DS Bactrim DS No 1 Q12H Bactrim DS [place] 800 mg-160 800 mg-160 800 mg-160 Communi mg tablet mg tablet mg tablet ty Take 1 Take 1 Take 1 Hospita tablet tablet tablet l every 12 every 12 every 12 Cli nics hours by hours by hours by oral route oral route oral route for 7 days. for 7 days. for 7 days. BD [facility]alee 2nd BD [facility] 2nd No BD Kalee [place] Gen Pen Gen Pen 2nd Gen Commun i Needle 32 Needle 32 Pen Needle ty gauge x gauge x 32 gauge x [facility] " 1 " 1 " 1 l TIME A DAY TIME A DAY TIME A DAY Clinics cholecalcif cholecalcif No cholecalci [place] ghada ghada ferol Communi (vitamin (vitamin (vitamin ty D3) 1,250 D3) 1,250 D3) 1,250 Hospita mcg (50,000 mcg (50,000 mcg l unit) unit) (50,000 Clinics capsule capsule unit) TAKE 1 TAKE 1 capsule CAPSULE CAPSULE TAKE 1 EVERY 15 EVERY 15 CAPSULE DAYS DAYS EVERY 15 DAYS clonazepam clonazepam No clonazepam [place] 0.5 mg 0.5 mg 0.5 mg Communi tablet TAKE tablet TAKE tablet ty 1 TABLET BY 1 TABLET BY TAKE 1 Hospita MOUTH ONCE MOUTH ONCE TABLET BY l A DAY A DAY MOUTH ONCE C linics NEEDED NEEDED A DAY NEEDED cyclobenzap cyclobenzap No cyclobenza [place] rine 10 mg rine 10 mg rita 10 Communi tablet tablet mg tablet ty Hospita l Clinics diclofenac diclofenac No diclofenac [place] sodium 75 sodium 75 sodium 75 Communi [...] DAY EVERY DAY famotidine famotidine No famotidine [place] 20 mg 20 mg 20 mg Communi tablet Take tablet Take tablet ty 1 tablet 1 tablet Take 1 Hospi ta daily by daily by tablet l mouth mouth daily by Clinics mouth ferrous ferrous No ferrous [place] sulfate 220 sulfate 220 sulfate Communi mg (44 mg mg (44 mg 220 mg (44 ty iron)/5 mL iron)/5 mL mg iron)/5 Hospita oral elixir oral elixir mL oral l Take 5 ML Take 5 ML elixir Cli nics BID by BID by Take 5 ML mouth mouth BID by mouth glipizide glipizide No glipizide [place] ER 2.5 mg ER 2.5 mg ER 2.5 mg Communi tablet, tablet, tablet, ty extended extended extended [facility] release 24 release 24 release 24 l hr hr hr Clinics Humatrope 6 Humatrope 6 No Humatrope [place] mg (18 mg (18 6 mg (18 Communi unit) unit) unit) ty injection injection injection [facility] cartridge cartridge cartridge l INJECT INJECT INJECT Clinics 0.3MG 0.3MG 0.3MG SUBCUTANEOU SUBCUTANEOU SUBCUTANEO SLY EVERY SLY EVERY USLY EVERY DAY DAY DAY hydrocortis hydrocortis No hydrocorti [place] one 20 mg one 20 mg sone 20 mg Communi tablet TAKE tablet TAKE tablet ty 2 TABLETS 2 TABLETS TAKE 2 [facility] BY MOUTH BY MOUTH TABLETS BY l EVERY DAY EVERY DAY MOUTH Clin ics IN THE IN THE EVERY DAY MORNING MORNING IN THE MORNING isosorbide isosorbide No isosorbide [place] mononitrate mononitrate mononitrat Communi ER 30 mg ER 30 mg e ER 30 mg t y tablet,exte tablet,exte tablet,ext [facility]ospita nded nded ended l release 24 release 24 release 24 Clinics hr TAKE 1 hr TAKE 1 hr TAKE 1 TABLET BY TABLET BY TABLET BY MOUTH EVERY MOUTH EVERY MOUTH DAY DAY EVERY DAY Klor-Con 10 Klor-Con 10 No Klor-Con [place] mEq mEq 10 mEq Communi tablet,exte tablet,exte tablet,ext ty nded nded ended Hospita release release release l TAKE 1 TAKE 1 TAKE 1 Clinics TABLET BY TABLET BY TABLET BY MOUTH EVERY MOUTH EVERY MOUTH DAY WITH DAY WITH EVERY DAY FOOD FOOD WITH FOOD levothyroxi levothyroxi No levothyrox [place] ne 112 mcg ne 112 mcg ine 112 Communi tablet 1 tablet 1 mcg tablet t y TAB DAILY TAB DAILY 1 TAB [facility] 1/2 HR. 1/2 HR. DAILY 1/2 l BEFORE BEFORE HR. BEFORE Clini cs BREAKFAST BREAKFAST BREAKFAST WITH WATER WITH WATER WITH WATER lidocaine 5 lidocaine 5 No lidocaine [place] % topical % topical 5 % [facility] ni [facility] liothyronin No liothyroni [place] e 5 mcg e 5 mcg ne 5 mcg Commu ni tablet tablet tablet ty Hospita [facility] mirtazapine mirtazapine No mirtazapin [place] 15 mg 15 mg e 15 mg Communi tablet TAKE tablet TAKE tablet ty 1 TABLET BY 1 TABLET BY TAKE 1 Hospita MOUTH MOUTH TABLET BY l EVERYDAY AT EVERYDAY AT MOUTH Clinics BEDTIME BEDTIME EVERYDAY AT BEDTIME nitroglycer nitroglycer No 1 nitroglyce [place] in 0.4 mg in 0.4 mg rin 0.4 mg Communi sublingual sublingual sublingual ty tablet [facility] [address] 1 l tablet as tablet as tablet as Clinics needed by needed by needed by sublingual sublingual sublingual route. route. route. omeprazole omeprazole No omeprazole [place] 20 mg 20 mg 20 mg Communi [...] DAY l Clinics pantoprazol pantoprazol No pantoprazo [place] e 40 mg e 40 mg le 40 mg Commu ni tablet,indira tablet,indira tablet,del ty yed release yed release ayed H ospita Take 1 Take 1 release l tablet BID tablet BID Take 1 C linics by mouth by mouth tablet BID by mouth potassium potassium No potassium [place] chloride ER chloride ER chloride Communi 20 [...] Santyl 250 Santyl 250 No Santyl 250 [place] unit/gram unit/gram unit/gram [facility] topical topical topical ty ointment ointment ointment [facility] APPLY A APPLY A APPLY A l DIONY [facility] THICK THICK THICK AMOUNT TO AMOUNT TO AMOUNT TO WOUND 3 WOUND 3 WOUND 3 TIMES A TIMES A TIMES A WEEK WEEK WEEK sotalol 160 sotalol 160 No sotalol [place] mg tablet mg tablet 160 mg Com raz TAKE 1 TAKE 1 tablet ty TABLET BY TABLET BY TAKE 1 [facility] MOUTH EVERY MOUTH EVERY TABLET BY l DAY DAY MOUTH Clinics EVERY DAY tramadol 50 tramadol 50 No tramadol [place] mg tablet mg tablet 50 mg Comm uni TAKE 1 TAKE 1 tablet ty TABLET BY TABLET BY TAKE 1 [facility] MOUTH AT MOUTH AT TABLET BY l BEDTIME AND BEDTIME AND MOUTH AT Clinics IN MORNING IN MORNING BEDTIME AND IN MORNING amlodipine amlodipine No amlodipine [place] 5 mg tablet 5 mg tablet 5 mg C [facility] TAKE 1 TAKE 1 tablet ty TABLET BY TABLET BY TAKE 1 [facility] MOUTH EVERY MOUTH EVERY TABLET BY l DAY DAY MOUTH Clinics EVERY DAY atorvastati atorvastati No atorvastat [place] n 20 mg n 20 mg in 20 mg Commu ni tablet TAKE tablet TAKE tablet ty 1 TABLET BY 1 TABLET BY TAKE 1 Hospita MOUTH EVERY MOUTH EVERY TABLET BY l DAY FOR 90 DAY FOR 90 MOUTH Cl inics DAYS DAYS EVERY DAY FOR 90 DAYS BD Kalee 2nd BD Kalee 2nd No BD Kalee [place] Gen Pen Gen Pen 2nd Gen Commun i Needle 32 Needle 32 Pen Needle ty gauge x gauge x 32 gauge x [facility] /32" 1 32" 1 32" 1 l TIME A DAY TIME A DAY TIME A DAY Clinics cholecalcif cholecalcif No cholecalci [place] ghada ghada ferol Communi (vitamin (vitamin (vitamin ty D3) 1,250 D3) 1,250 D3) 1,250 Hospita mcg (50,000 mcg (50,000 mcg l unit) unit) (50,000 Clinics capsule capsule unit) TAKE 1 TAKE 1 capsule CAPSULE CAPSULE TAKE 1 EVERY 15 EVERY 15 CAPSULE DAYS DAYS EVERY 15 DAYS clonazepam clonazepam No clonazepam [place] 0.5 mg 0.5 mg 0.5 mg Communi tablet TAKE tablet TAKE tablet ty 1 TABLET BY 1 TABLET BY TAKE 1 Hospita MOUTH EVERY MOUTH EVERY TABLET BY l DAY DAY MOUTH Clinics NEEDED NEEDED EVERY DAY NEEDED cyclobenzap cyclobenzap No cyclobenza [place] rine 10 mg rine 10 mg rita 10 Communi tablet tablet mg tablet ty Hospita l Clinics diclofenac diclofenac No diclofenac [place] sodium 75 sodium 75 sodium 75 Communi [...] DAY EVERY DAY famotidine famotidine No famotidine [place] 20 mg 20 mg 20 mg Communi tablet Take tablet Take tablet ty 1 tablet 1 tablet Take 1 Hospi ta daily by daily by tablet l mouth mouth daily by Clinics mouth ferrous ferrous No ferrous [place] sulfate 220 sulfate 220 sulfate Communi mg (44 mg mg (44 mg 220 mg (44 ty iron)/5 mL iron)/5 mL mg iron)/5 Hospita oral elixir oral elixir mL oral l Take 5 ML Take 5 ML elixir Cli nics BID by BID by Take 5 ML mouth mouth BID by mouth glipizide glipizide No glipizide [place] ER 2.5 mg ER 2.5 mg ER 2.5 mg Communi tablet, tablet, tablet, ty extended extended extended [facility] release 24 release 24 release 24 l hr hr hr Clinics Humatrope 6 Humatrope 6 No Humatrope [place] mg (18 mg (18 6 mg (18 Communi unit) unit) unit) ty injection injection injection [facility] cartridge cartridge cartridge l INJECT INJECT INJECT Clinics 0.3MG 0.3MG 0.3MG SUBCUTANEOU SUBCUTANEOU SUBCUTANEO SLY EVERY SLY EVERY USLY EVERY DAY DAY DAY hydrocortis hydrocortis No hydrocorti [place] one 20 mg one 20 mg sone 20 mg Communi tablet TAKE tablet TAKE tablet ty 2 TABLETS 2 TABLETS TAKE 2 [facility] BY MOUTH BY MOUTH TABLETS BY l EVERY DAY EVERY DAY MOUTH Clin ics IN THE IN THE EVERY DAY MORNING MORNING IN THE MORNING isosorbide isosorbide No isosorbide [place] mononitrate mononitrate mononitrat Communi ER 30 mg ER 30 mg e ER 30 mg t y tablet,exte tablet,exte tablet,ext Hospita nded nded ended l release 24 release 24 release 24 Clinics hr TAKE 1 hr TAKE 1 hr TAKE 1 TABLET BY TABLET BY TABLET BY MOUTH EVERY MOUTH EVERY MOUTH DAY DAY EVERY DAY Klor-Con 10 Klor-Con 10 No Klor-Con [place] mEq mEq 10 mEq Communi tablet,exte tablet,exte tablet,ext ty nded nded ended Hospita release release release l TAKE 1 TAKE 1 TAKE 1 Clinics TABLET BY TABLET BY TABLET BY MOUTH EVERY MOUTH EVERY MOUTH DAY WITH DAY WITH EVERY DAY FOOD FOOD WITH FOOD levothyroxi levothyroxi No levothyrox [place] ne 112 mcg ne 112 mcg ine 112 Communi tablet 1 tablet 1 mcg tablet t y TAB DAILY TAB DAILY 1 TAB [facility] 1/2 HR. 1/2 HR. DAILY 1/2 l BEFORE BEFORE HR. BEFORE Clini cs BREAKFAST BREAKFAST BREAKFAST WITH WATER WITH WATER WITH WATER lidocaine 5 lidocaine 5 No lidocaine [place] % topical % topical 5 % Commu ni patch patch topical ty patch [facility] liothyronin liothyronin No liothyroni [place] e 5 mcg e 5 mcg ne 5 mcg Commu ni tablet tablet tablet ty [facility]ospita Clinics mirtazapine mirtazapine No mirtazapin [place] 15 mg 15 mg e 15 mg Communi tablet TAKE tablet TAKE tablet ty 1 TABLET BY 1 TABLET BY TAKE 1 Hospita MOUTH MOUTH TABLET BY l EVERYDAY AT EVERYDAY AT MOUTH Clinics BEDTIME BEDTIME EVERYDAY AT BEDTIME nitroglycer nitroglycer No 1 nitroglyce [place] in 0.4 mg in 0.4 mg rin 0.4 mg Communi sublingual sublingual sublingual ty tablet [facility] [address] 1 l tablet as tablet as tablet as Clinics needed by needed by needed by sublingual sublingual sublingual route. route. route. omeprazole omeprazole No omeprazole [place] 20 mg 20 mg 20 mg Communi [...] DAY l Clinics pantoprazol pantoprazol No pantoprazo [place] e 40 mg e 40 mg le 40 mg Commu ni tablet,indira tablet,indira tablet,del ty yed release yed release ayed H ospita Take 1 Take 1 release l tablet BID tablet BID Take 1 C linics by mouth by mouth tablet BID by mouth phenazopyri phenazopyri No phenazopyr [place] dine 200 mg dine 200 mg idine 200 Communi tablet TAKE tablet TAKE mg tablet ty 1 TABLET BY 1 TABLET BY TAKE 1 Hospita MOUTH THREE MOUTH THREE TABLET BY l TIMES A DAY TIMES A DAY MOUTH Clinics FOR 3 DAYS FOR 3 DAYS THREE TIMES A DAY FOR 3 DAYS potassium potassium No potassium [place] chloride ER chloride ER chloride Communi 20 mEq 20 mEq ER 20 mEq ty tablet,exte tablet,exte tablet,ext Hospita nded nded ended l release(par release(par release(pa Clinics t/cryst) t/cryst) rt/cryst) TAKE 1 TAKE 1 TAKE 1 TABLET BY TABLET BY TABLET BY MOUTH EVERY MOUTH EVERY MOUTH DAY DAY EVERY DAY Santyl 250 Santyl 250 No Santyl 250 [place] unit/gram unit/gram unit/gram Communi topical topical topical ty ointment ointment ointment [facility] APPLY A APPLY A APPLY A l DIOYN [facility] THICK THICK THICK AMOUNT TO AMOUNT TO AMOUNT TO WOUND 3 WOUND 3 WOUND 3 TIMES A TIMES A TIMES A WEEK WEEK WEEK sotalol 160 sotalol 160 No sotalol [place] mg tablet mg tablet 160 mg Com raz TAKE 1 TAKE 1 tablet ty TABLET BY TABLET BY TAKE 1 [facility] MOUTH EVERY MOUTH EVERY TABLET BY l DAY DAY MOUTH Clinics EVERY DAY sulfamethox sulfamethox No sulfametho [place] azole 800 azole 800 xazole 800 Communi [...] Suprax 200 No 5mL BID Suprax 200 [place] mg/5 mL mg/5 mL mg/5 mL Commun i oral oral oral ty suspension suspension suspension Hospita Take 5 mL Take 5 mL Take 5 mL l twice a day twice a day twice a Clinics by oral by oral day by route for 7 route for 7 oral route days. days. for 7 days. tramadol 50 tramadol 50 No tramadol [place] mg tablet mg tablet 50 mg Comm uni TAKE 1 TAKE 1 tablet ty TABLET BY TABLET BY TAKE 1 [facility] MOUTH AT MOUTH AT TABLET BY l BEDTIME AND BEDTIME AND MOUTH AT Clinics IN MORNING IN MORNING BEDTIME AND IN MORNING amlodipine amlodipine No amlodipine [place] 5 mg tablet 5 mg tablet 5 mg C [facility] TAKE 1 TAKE 1 tablet ty TABLET BY TABLET BY TAKE 1 [facility] MOUTH EVERY MOUTH EVERY TABLET BY l DAY DAY MOUTH Clinics EVERY DAY atorvastati atorvastati No atorvastat [place] n 20 mg n 20 mg in 20 mg Commu ni tablet TAKE tablet TAKE tablet ty 1 TABLET BY 1 TABLET BY TAKE 1 Hospita MOUTH EVERY MOUTH EVERY TABLET BY l DAY FOR 90 DAY FOR 90 MOUTH Cl inics DAYS DAYS EVERY DAY FOR 90 DAYS BD Kalee 2nd BD Kalee 2nd No BD Kalee [place] Gen Pen Gen Pen 2nd Gen Commun i Needle 32 Needle 32 Pen Needle ty gauge x gauge x 32 gauge x [facility] " 1 " 1 " 1 l TIME A DAY TIME A DAY TIME A DAY Clinics ceftriaxone ceftriaxone No 500mg ceftriaxon [place] 500 mg 500 mg e 500 mg Communi solution solution solution ty for for for Hospita injection injection injection l Take 500 mg Take 500 mg Take 500 Clinics by by mg by injection injection injection route. route. route. cholecalcif cholecalcif No cholecalci [place] ghada ghada ferol Communi (vitamin (vitamin (vitamin ty D3) 1,250 D3) 1,250 D3) 1,250 Hospita mcg (50,000 mcg (50,000 mcg l unit) unit) (50,000 Clinics capsule capsule unit) TAKE 1 TAKE 1 capsule CAPSULE CAPSULE TAKE 1 EVERY 15 EVERY 15 CAPSULE DAYS DAYS EVERY 15 DAYS clonazepam clonazepam No clonazepam [place] 0.5 mg 0.5 mg 0.5 mg Communi tablet TAKE tablet TAKE tablet ty 1 TABLET BY 1 TABLET BY TAKE 1 Hospita MOUTH EVERY MOUTH EVERY TABLET BY l DAY DAY MOUTH Clinics NEEDED NEEDED EVERY DAY NEEDED cyclobenzap cyclobenzap No cyclobenza [place] rine 10 mg rine 10 mg rita 10 Communi tablet tablet mg tablet ty Hospita l Clinics diclofenac diclofenac No diclofenac [place] sodium 75 sodium 75 sodium 75 Communi [...] DAY EVERY DAY famotidine famotidine No famotidine [place] 20 mg 20 mg 20 mg Communi tablet Take tablet Take tablet ty 1 tablet 1 tablet Take 1 Hospi ta daily by daily by tablet l mouth mouth daily by Clinics mouth ferrous ferrous No ferrous [place] sulfate 220 sulfate 220 sulfate Communi mg (44 mg mg (44 mg 220 mg (44 ty iron)/5 mL iron)/5 mL mg iron)/5 Hospita oral elixir oral elixir mL oral l Take 5 ML Take 5 ML elixir Cli nics BID by BID by Take 5 ML mouth mouth BID by mouth glipizide glipizide No glipizide [place] ER 2.5 mg ER 2.5 mg ER 2.5 mg Communi tablet, tablet, tablet, ty extended extended extended [facility] release 24 release 24 release 24 l hr hr hr Clinics Humatrope 6 Humatrope 6 No Humatrope [place] mg (18 mg (18 6 mg (18 Communi unit) unit) unit) ty injection injection injection [facility] cartridge cartridge cartridge l INJECT INJECT INJECT Clinics 0.3MG 0.3MG 0.3MG SUBCUTANEOU SUBCUTANEOU SUBCUTANEO SLY EVERY SLY EVERY USLY EVERY DAY DAY DAY hydrocortis hydrocortis No hydrocorti [place] one 20 mg one 20 mg sone 20 mg Communi tablet TAKE tablet TAKE tablet ty 2 TABLETS 2 TABLETS TAKE 2 [facility] BY MOUTH BY MOUTH TABLETS BY l EVERY DAY EVERY DAY MOUTH Clin ics IN THE IN THE EVERY DAY MORNING MORNING IN THE MORNING isosorbide isosorbide No isosorbide [place] mononitrate mononitrate mononitrat Communi ER 30 mg ER 30 mg e ER 30 mg t y tablet,exte tablet,exte tablet,ext Hospita nded nded ended l release 24 release 24 release 24 Clinics hr TAKE 1 hr TAKE 1 hr TAKE 1 TABLET BY TABLET BY TABLET BY MOUTH EVERY MOUTH EVERY MOUTH DAY DAY EVERY DAY Klor-Con 10 Klor-Con 10 No Klor-Con [place] mEq mEq 10 mEq Communi tablet,exte tablet,exte tablet,ext ty nded nded ended Hospita release release release l TAKE 1 TAKE 1 TAKE 1 Clinics TABLET BY TABLET BY TABLET BY MOUTH EVERY MOUTH EVERY MOUTH DAY WITH DAY WITH EVERY DAY FOOD FOOD WITH FOOD levothyroxi levothyroxi No levothyrox [place] ne 112 mcg ne 112 mcg ine 112 Communi tablet 1 tablet 1 mcg tablet t y TAB DAILY TAB DAILY 1 TAB [facility] 1/2 HR. 1/2 HR. DAILY 1/2 l BEFORE BEFORE HR. BEFORE Clini cs BREAKFAST BREAKFAST BREAKFAST WITH WATER WITH WATER WITH WATER lidocaine lidocaine No 2.1mL lidocaine [place] (PF) 10 (PF) 10 (PF) 10 Commun i mg/mL (1 %) mg/mL (1 %) mg/mL (1 ty injection injection %) Hospi ta solution solution injection l Take 2.1 mL Take 2.1 mL solution Clinics by by Take 2.1 injection injection mL by route. route. injection route. lidocaine lidocaine No 2.1mL Q1D lidocaine [place] (PF) 50 (PF) 50 (PF) 50 Commun [...] ML lidocaine 5 lidocaine 5 No lidocaine [place] % topical % topical 5 % Commu ni patch patch topical ty patch [facility] liothyronin liothyronin No liothyroni [place] e 5 mcg e 5 mcg ne 5 mcg Commu ni tablet tablet tablet ty [facility] mirtazapine mirtazapine No mirtazapin [place] 15 mg 15 mg e 15 mg Communi tablet TAKE tablet TAKE tablet ty 1 TABLET BY 1 [facility] TABLET BY l EVERYDAY AT EVERYDAY AT MOUTH Clinics BEDTIME BEDTIME EVERYDAY AT BEDTIME nitroglycer nitroglycer No 1 nitroglyce [place] in 0.4 mg in 0.4 mg rin 0.4 mg Communi sublingual sublingual sublingual ty tablet [facility] [address] 1 l tablet as tablet as tablet as Clinics needed by needed by needed by sublingual sublingual sublingual route. route. route. omeprazole omeprazole No omeprazole [place] 20 mg 20 mg 20 mg Communi [...] ty gauge TEST gauge TEST gauge TEST [facility] TWICE A DAY TWICE A DAY TWICE [...] A DAY TEST TWICE Hospita A DAY [facility] pantoprazol pantoprazol No pantoprazo [place] e 40 mg e 40 mg le 40 mg Commu ni tablet,indira tablet,indira tablet,del ty yed release yed release ayed H ospita Take 1 Take 1 release l tablet BID tablet BID Take 1 C linics by mouth by mouth tablet BID by mouth phenazopyri phenazopyri No phenazopyr [place] dine 200 mg dine 200 mg idine 200 Communi tablet TAKE tablet TAKE mg tablet ty 1 TABLET BY 1 TABLET BY TAKE 1 Hospita MOUTH THREE MOUTH THREE TABLET BY l TIMES A DAY TIMES A DAY MOUTH Clinics FOR 3 DAYS FOR 3 DAYS THREE TIMES A DAY FOR 3 DAYS potassium potassium No potassium [place] chloride ER chloride ER chloride Communi 20 mEq 20 mEq ER 20 mEq ty tablet,exte tablet,exte tablet,ext Hospita nded nded ended l release(par release(par release(pa Clinics t/cryst) t/cryst) rt/cryst) TAKE 1 TAKE 1 TAKE 1 TABLET BY TABLET BY TABLET BY MOUTH EVERY MOUTH EVERY MOUTH DAY DAY EVERY DAY Santyl 250 Santyl 250 No Santyl 250 [place] unit/gram unit/gram unit/gram Communi topical topical topical ty ointment ointment ointment [facility] APPLY A APPLY A APPLY A l DIONY [facility] THICK THICK THICK AMOUNT TO AMOUNT TO AMOUNT TO WOUND 3 WOUND 3 WOUND 3 TIMES A TIMES A TIMES A WEEK WEEK WEEK sotalol 160 sotalol 160 No sotalol [place] mg tablet mg tablet 160 mg Com raz TAKE 1 TAKE 1 tablet ty TABLET BY TABLET BY TAKE 1 [facility] MOUTH EVERY MOUTH EVERY TABLET BY l DAY DAY MOUTH Clinics EVERY DAY sulfamethox sulfamethox No sulfametho [place] azole 800 azole 800 xazole 800 Communi [...] Suprax 200 No 5mL BID Suprax 200 [place] mg/5 mL mg/5 mL mg/5 mL Commun i oral oral oral ty suspension suspension suspension [facility] Take 5 mL Take 5 mL Take 5 mL l twice a day twice a day twice a Clinics by oral by oral day by route for 7 route for 7 oral route days. days. for 7 days. tramadol 50 tramadol 50 No tramadol [place] mg tablet mg tablet 50 mg Comm uni TAKE 1 TAKE 1 tablet ty TABLET BY TABLET BY TAKE 1 [facility] MOUTH AT MOUTH AT TABLET BY l BEDTIME AND BEDTIME AND MOUTH AT Clinics IN MORNING IN MORNING BEDTIME AND IN MORNING amlodipine amlodipine No amlodipine [place] 5 mg tablet 5 mg tablet 5 mg [facility] TAKE 1 TAKE 1 tablet ty TABLET BY TABLET BY TAKE 1 [facility] MOUTH EVERY MOUTH EVERY TABLET BY l DAY DAY MOUTH Clinics EVERY DAY atorvastati atorvastati No atorvastat [place] n 20 mg n 20 mg in 20 mg Commu ni tablet TAKE tablet TAKE tablet ty 1 TABLET BY 1 TABLET BY TAKE 1 Hospita MOUTH EVERY MOUTH EVERY TABLET BY l DAY FOR 90 DAY FOR 90 MOUTH Cl inics DAYS DAYS EVERY DAY FOR 90 DAYS BD Kalee 2nd BD Kalee 2nd No BD Kalee [place] Gen Pen Gen Pen 2nd Gen Commun i Needle 32 Needle 32 Pen Needle ty gauge x gauge x 32 gauge x [facility] " 1 " 1 " 1 l TIME A DAY TIME A DAY TIME A DAY Clinics ceftriaxone ceftriaxone No 500mg ceftriaxon [place] 500 mg 500 mg e 500 mg Communi solution solution solution ty for for for Hospita injection injection injection l Take 500 mg Take 500 mg Take 500 Clinics by by mg by injection injection injection route. route. route. cholecalcif cholecalcif No cholecalci [place] ghada ghada ferol Communi (vitamin (vitamin (vitamin ty D3) 1,250 D3) 1,250 D3) 1,250 Hospita mcg (50,000 mcg (50,000 mcg l unit) unit) (50,000 Clinics capsule capsule unit) TAKE 1 TAKE 1 capsule CAPSULE CAPSULE TAKE 1 EVERY 15 EVERY 15 CAPSULE DAYS DAYS EVERY 15 DAYS clonazepam clonazepam No clonazepam [place] 0.5 mg 0.5 mg 0.5 mg Communi tablet TAKE tablet TAKE tablet ty 1 TABLET BY 1 TABLET BY TAKE 1 Hospita MOUTH EVERY MOUTH EVERY TABLET BY l DAY DAY MOUTH Clinics NEEDED NEEDED EVERY DAY NEEDED cyclobenzap cyclobenzap No cyclobenza [place] rine 10 mg rine 10 mg rita 10 Communi tablet tablet mg tablet ty Hospita l Clinics diclofenac diclofenac No diclofenac [place] sodium 75 sodium 75 sodium 75 Communi [...] DAY EVERY DAY famotidine famotidine No famotidine [place] 20 mg 20 mg 20 mg Communi tablet Take tablet Take tablet ty 1 tablet 1 tablet Take 1 Hospi ta daily by daily by tablet l mouth mouth daily by Clinics mouth ferrous ferrous No ferrous [place] sulfate 220 sulfate 220 sulfate Communi mg (44 mg mg (44 mg 220 mg (44 ty iron)/5 mL iron)/5 mL mg iron)/5 Hospita oral elixir oral elixir mL oral l Take 5 ML Take 5 ML elixir Cli nics BID by BID by Take 5 ML mouth mouth BID by mouth glipizide glipizide No glipizide [place] ER 2.5 mg ER 2.5 mg ER 2.5 mg Communi tablet, tablet, tablet, ty extended extended extended [facility] release 24 release 24 release 24 l hr hr hr Clinics Humatrope 6 Humatrope 6 No Humatrope [place] mg (18 mg (18 6 mg (18 Communi unit) unit) unit) ty injection injection injection [facility] cartridge cartridge cartridge l INJECT INJECT INJECT [facility] 0.3MG 0.3MG 0.3MG SUBCUTANEOU SUBCUTANEOU SUBCUTANEO SLY EVERY SLY EVERY USLY EVERY DAY DAY DAY hydrocortis hydrocortis No hydrocorti [place] one 20 mg one 20 mg sone 20 mg Communi tablet TAKE tablet TAKE tablet ty 2 TABLETS 2 TABLETS TAKE 2 [facility] BY MOUTH BY MOUTH TABLETS BY l EVERY DAY EVERY DAY MOUTH Clin ics IN THE IN THE EVERY DAY MORNING MORNING IN THE MORNING isosorbide isosorbide No isosorbide [place] mononitrate mononitrate mononitrat Communi ER 30 mg ER 30 mg e ER 30 mg t y tablet,exte tablet,exte tablet,ext Hospita nded nded ended l release 24 release 24 release 24 Clinics hr TAKE 1 hr TAKE 1 hr TAKE 1 TABLET BY TABLET BY TABLET BY MOUTH EVERY MOUTH EVERY MOUTH DAY DAY EVERY DAY Klor-Con 10 Klor-Con 10 No Klor-Con [place] mEq mEq 10 mEq Communi tablet,exte tablet,exte tablet,ext ty nded nded ended Hospita release release release l TAKE 1 TAKE 1 TAKE 1 Clinics TABLET BY TABLET BY TABLET BY MOUTH EVERY MOUTH EVERY MOUTH DAY WITH DAY WITH EVERY DAY FOOD FOOD WITH FOOD levothyroxi levothyroxi No levothyrox [place] ne 112 mcg ne 112 mcg ine 112 Communi tablet 1 tablet 1 mcg tablet t y TAB DAILY TAB DAILY 1 TAB [facility] 1/2 HR. 1/2 HR. DAILY 1/2 l BEFORE BEFORE HR. BEFORE Clini cs BREAKFAST BREAKFAST BREAKFAST WITH WATER WITH WATER WITH WATER lidocaine lidocaine No 2.1mL lidocaine [place] (PF) 10 (PF) 10 (PF) 10 Commun i mg/mL (1 %) mg/mL (1 %) mg/mL (1 ty injection injection %) [facility] solution solution injection l Take 2.1 mL Take 2.1 mL solution Clinics by by Take 2.1 injection injection mL by route. route. injection route. lidocaine lidocaine No 2.1mL Q1D lidocaine [place] (PF) 50 (PF) 50 (PF) 50 Commun i mg/5 mL (1 mg/5 mL (1 mg/5 mL (1 ty %) %) %) [facility] injection injection injection l syringe syringe syringe [...] ML lidocaine 5 lidocaine 5 No lidocaine [place] % topical % topical 5 % Commu ni patch patch topical ty patch [facility] liothyronin liothyronin No liothyroni [place] e 5 mcg e 5 mcg ne 5 mcg Commu ni tablet tablet tablet ty [facility] mirtazapine mirtazapine No mirtazapin [place] 15 mg 15 mg e 15 mg Communi tablet TAKE tablet TAKE tablet ty 1 TABLET BY 1 TABLET BY TAKE 1 [facility] MOUTH MOUTH TABLET BY l EVERYDAY AT EVERYDAY AT MOUTH Clinics BEDTIME BEDTIME EVERYDAY AT BEDTIME nitroglycer nitroglycer No 1 nitroglyce [place] in 0.4 mg in 0.4 mg rin 0.4 mg Communi sublingual sublingual sublingual ty tablet tablet tablet [facility] [address] 1 l tablet as tablet as tablet as Clinics needed by needed by needed by sublingual sublingual sublingual route. route. route. omeprazole omeprazole No omeprazole [place] 20 mg 20 mg 20 mg Communi [...] DAY l Clinics pantoprazol pantoprazol No pantoprazo [place] e 40 mg e 40 mg le 40 mg Commu ni tablet,indira tablet,indira tablet,del ty yed release yed release ayed H ospita Take 1 Take 1 release l tablet BID tablet BID Take 1 C linics by mouth by mouth tablet BID by mouth phenazopyri phenazopyri No phenazopyr [place] dine 200 mg dine 200 mg idine 200 Communi tablet TAKE tablet TAKE mg tablet ty 1 TABLET BY 1 TABLET BY TAKE 1 Hospita MOUTH THREE MOUTH THREE TABLET BY l TIMES A DAY TIMES A DAY MOUTH Clinics FOR 3 DAYS FOR 3 DAYS THREE TIMES A DAY FOR 3 DAYS potassium potassium No potassium [place] chloride ER chloride ER chloride Communi 20 mEq 20 mEq ER 20 mEq ty tablet,exte tablet,exte tablet,ext Hospita nded nded ended l release(par release(par release(pa Clinics t/cryst) t/cryst) rt/cryst) TAKE 1 TAKE 1 TAKE 1 TABLET BY TABLET BY TABLET BY MOUTH EVERY MOUTH EVERY MOUTH DAY DAY EVERY DAY Santyl 250 Santyl 250 No Santyl 250 [place] unit/gram unit/gram unit/gram Communi topical topical topical ty ointment ointment ointment [facility] APPLY A APPLY A APPLY A l DIONY DIONY DIONY Clinics THICK THICK THICK AMOUNT TO AMOUNT TO AMOUNT TO WOUND 3 WOUND 3 WOUND 3 TIMES A TIMES A TIMES A WEEK WEEK WEEK sotalol 160 sotalol 160 No sotalol [place] mg tablet mg tablet 160 mg Com raz TAKE 1 TAKE 1 tablet ty TABLET BY TABLET BY TAKE 1 [facility] MOUTH EVERY MOUTH EVERY TABLET BY l DAY DAY MOUTH Clinics EVERY DAY sulfamethox sulfamethox No sulfametho [place] azole 800 azole 800 xazole 800 Communi [...] Suprax 200 No 5mL BID Suprax 200 [place] mg/5 mL mg/5 mL mg/5 mL Commun i oral oral oral ty suspension suspension suspension [facility] Take 5 mL Take 5 mL Take 5 mL l twice a day twice a day twice a Clinics by oral by oral day by route for 7 route for 7 oral route days. days. for 7 days. tramadol 50 tramadol 50 No tramadol [facility] mg tablet mg tablet 50 mg Comm uni TAKE 1 TAKE 1 tablet ty TABLET BY TABLET BY TAKE 1 [facility] MOUTH AT MOUTH AT TABLET BY l BEDTIME AND BEDTIME AND MOUTH AT Clinics IN MORNING IN MORNING BEDTIME AND IN MORNING amlodipine amlodipine No amlodipine [facility] 5 mg tablet 5 mg tablet 5 mg [facility] TAKE 1 TAKE 1 tablet ty TABLET BY TABLET BY TAKE 1 [facility] MOUTH EVERY MOUTH EVERY TABLET BY l DAY DAY MOUTH Clinics EVERY DAY atorvastati atorvastati No atorvastat [facility] n 20 mg n 20 mg in 20 mg Com[facility] ni tablet TAKE tablet TAKE tablet ty 1 TABLET BY 1 TABLET BY TAKE 1 [facility]ospita MOUTH EVERY MOUTH EVERY TABLET BY l DAY FOR 90 DAY FOR 90 MOUTH Cl inics DAYS DAYS EVERY DAY FOR 90 DAYS BD Kalee 2nd BD Kale[facility] 2nd No BD Kalee [place] Gen Pen Gen Pen 2nd Gen Commun i Needle 32 Needle 32 Pen Needle ty gauge x gauge x 32 gauge x [facility] /32" 1 32" 1 " 1 l TIME A DAY TIME A DAY TIME A DAY Clinics ceftriaxone ceftriaxone No 500mg ceftriaxon [facility] 500 mg 500 mg e 500 mg [facility] solution solution solution ty for for for [facility] injection injection injection l Take 500 mg Take 500 mg Take 500 Clinics by by mg by injection injection injection route. pt route. pt route. pt tolerated tolerated tolerated well well well cholecalcif cholecalcif No cholecalci [facility] ghada ghada ferol [facility]i (vitamin (vitamin (vitamin ty D3) 1,250 D3) 1,250 D3) 1,250 [facility] mcg (50,000 mcg (50,000 mcg l unit) unit) (50,000 Clinics capsule capsule unit) TAKE 1 TAKE 1 capsule CAPSULE CAPSULE TAKE 1 EVERY 15 EVERY 15 CAPSULE DAYS DAYS EVERY 15 DAYS clonazepam clonazepam No clonazepam [facility] 0.5 mg 0.5 mg 0.5 mg [facility]i tablet TAKE tablet TAKE tablet ty 1 TABLET BY 1 TABLET BY TAKE 1 [facility] MOUTH EVERY MOUTH EVERY TABLET BY l DAY DAY MOUTH Clinics NEEDED NEEDED EVERY DAY NEEDED cyclobenzap cyclobenzap No cyclobenza [facility] rine 10 mg rine 10 mg rita 10 Communi tablet tablet mg tablet ty [facility] l Clinics diclofenac diclofenac No diclofenac [place] sodium 75 sodium 75 sodium 75 Communi [...] DAY EVERY DAY famotidine famotidine No famotidine [facility] 20 mg 20 mg 20 mg [facility] tablet Take tablet Take tablet ty 1 tablet 1 tablet Take 1 Hospi ta daily by daily by tablet l mouth mouth daily by Clinics mouth ferrous ferrous No ferrous [place] sulfate 220 sulfate 220 sulfate [facility] mg (44 mg mg (44 mg 220 mg (44 ty iron)/5 mL iron)/5 mL mg iron)/5 [facility] oral elixir oral elixir mL oral l Take 5 ML Take 5 ML elixir Cli nics BID by BID by Take 5 ML mouth mouth BID by mouth glipizide glipizide No glipizide [facility] ER 2.5 mg ER 2.5 mg ER 2.5 mg [facility] tablet, tablet, tablet, ty extended extended extended [facility] release 24 release 24 release 24 l hr hr hr Clinics Humatrope 6 Humatrope 6 No Humatrope [facility] mg (18 mg (18 6 mg (18 [facility] unit) unit) unit) ty injection injection injection [facility] cartridge cartridge cartridge l INJECT INJECT INJECT Clinics 0.3MG 0.3MG 0.3MG SUBCUTANEOU SUBCUTANEOU SUBCUTANEO SLY EVERY SLY EVERY USLY EVERY DAY DAY DAY hydrocortis hydrocortis No hydrocorti [place] one 20 mg one 20 mg sone 20 mg [facility] tablet TAKE tablet TAKE tablet ty 2 TABLETS 2 TABLETS TAKE 2 [facility] BY MOUTH BY MOUTH TABLETS BY l EVERY DAY EVERY DAY MOUTH Clin ics IN THE IN THE EVERY DAY MORNING MORNING IN THE MORNING isosorbide isosorbide No isosorbide [facility] mononitrate mononitrate mononitrat Communi ER 30 mg ER 30 mg e ER 30 mg t y tablet,exte tablet,exte tablet,ext [facility] nded nded ended l release 24 release 24 release 24 Clinics hr TAKE 1 hr TAKE 1 hr TAKE 1 TABLET BY TABLET BY TABLET BY MOUTH EVERY MOUTH EVERY MOUTH DAY DAY EVERY DAY Klor-Con 10 Klor-Con 10 No Klor-Con [facility] mEq mEq 10 mEq Communi tablet,exte tablet,exte tablet,ext ty nded nded ended [facility]osp[facility] release release release l TAKE 1 TAKE 1 TAKE 1 Clinics TABLET BY TABLET BY TABLET BY MOUTH EVERY MOUTH EVERY MOUTH DAY WITH DAY WITH EVERY DAY FOOD FOOD WITH FOOD levothyroxi levothyroxi No levothyrox [place] ne 112 mcg ne 112 mcg ine 112 Communi tablet 1 tablet 1 mcg tablet t y TAB DAILY TAB DAILY 1 TAB [facility] 1/2 HR. 1/2 HR. DAILY 1/2 l BEFORE BEFORE HR. BEFORE Clini cs BREAKFAST BREAKFAST BREAKFAST WITH WATER WITH WATER WITH WATER lidocaine lidocaine No 2.1mL lidocaine [place] (PF) 10 (PF) 10 (PF) 10 Commun i mg/mL (1 %) mg/mL (1 %) mg/mL (1 ty injection injection %) Hospi ta solution solution injection l Take 2.1 mL Take 2.1 mL solution Clinics by by Take 2.1 injection injection mL by route. route. injection route. lidocaine lidocaine No 2.1mL Q1D lidocaine [place] (PF) 50 (PF) 50 (PF) 50 Commun i mg/5 mL (1 mg/5 mL (1 mg/5 mL (1 ty %) %) %) [facility] injection injection injection l syringe syringe syringe [...] mL lidocaine 5 lidocaine 5 No lidocaine [place] % topical % topical 5 % Commu ni patch patch topical ty patch [facility] liothyronin liothyronin No liothyroni [place] e 5 mcg e 5 mcg ne 5 mcg Commu ni tablet tablet tablet ty [facility] mirtazapine mirtazapine No mirtazapin [place] 15 mg 15 mg e 15 mg Communi tablet TAKE tablet TAKE tablet ty 1 TABLET BY [facility]T BY l EVERYDAY AT EVERYDAY AT MOUTH Clinics BEDTIME BEDTIME EVERYDAY AT BEDTIME nitroglycer nitroglycer No 1 nitroglyce [place] in 0.4 mg in 0.4 mg rin 0.4 mg Communi sublingual sublingual sublingual ty tablet [facility] [address] 1 l tablet as tablet as tablet as Clinics needed by needed by needed by sublingual sublingual sublingual route. route. route. omeprazole omeprazole No omeprazole [place] 20 mg 20 mg 20 mg [facility] capsule,del capsule,del capsule,de ty ayed ayed layed [facility] release release release l TAKE 1 TAKE 1 TAKE 1 Clinics CAPSULE BY CAPSULE BY CAPSULE BY MOUTH EVERY MOUTH EVERY MOUTH MORNING MORNING EVERY MORNING OneTouch OneTouch No OneTouch Swe madeleine [facility] Lancets 30 Lancets 30 Lancets 30 ty gauge TEST gauge TEST gauge TEST [facility] TWICE A DAY TWICE A DAY TWICE [...] DAY l Clinics pantoprazol pantoprazol No pantoprazo [place] e 40 mg e 40 mg le 40 mg Commu ni tablet,indira tablet,indira tablet,del ty yed release yed release ayed H [facility]spita Take 1 Take 1 release l tablet BID tablet BID Take 1 C linics by mouth by mouth tablet BID by mouth phenazopyri phenazopyri No phenazopyr [place] dine 200 mg dine 200 mg idine 200 Communi tablet TAKE tablet TAKE mg tablet ty 1 TABLET BY 1 TABLET BY TAKE 1 Hospita MOUTH THREE MOUTH THREE TABLET BY l TIMES A DAY TIMES A DAY MOUTH Clinics FOR 3 DAYS FOR 3 DAYS THREE TIMES A DAY FOR 3 DAYS potassium potassium No potassium [place] chloride ER chloride ER chloride Communi 20 mEq 20 mEq ER 20 mEq ty tablet,exte tablet,exte tablet,ext [facility]ospita nded nded ended l release(par release(par release(pa Clinics t/cryst) t/cryst) rt/cryst) TAKE 1 TAKE 1 TAKE 1 TABLET BY TABLET BY TABLET BY MOUTH EVERY MOUTH EVERY MOUTH DAY DAY EVERY DAY Santyl 250 Santyl 250 No Santyl 250 [place] unit/gram unit/gram unit/gram [facility] topical topical topical ty ointment ointment ointment [facility] APPLY A APPLY A APPLY A l DIONY [facility] THICK THICK THICK AMOUNT TO AMOUNT TO AMOUNT TO WOUND 3 WOUND 3 WOUND 3 TIMES A TIMES A TIMES A WEEK WEEK WEEK sotalol 160 sotalol 160 No sotalol [place] mg tablet mg tablet 160 mg Com raz TAKE 1 TAKE 1 tablet ty TABLET BY TABLET BY TAKE 1 [facility] MOUTH EVERY MOUTH EVERY TABLET BY l DAY DAY MOUTH Clinics EVERY DAY sulfamethox sulfamethox No sulfametho [place] azole 800 azole 800 xazole 800 Communi [...] Suprax 200 No 5mL BID Suprax 200 [place] mg/5 mL mg/5 mL mg/5 mL Commun i oral oral oral ty suspension suspension suspension [facility] Take 5 mL Take 5 mL Take 5 mL l twice a day twice a day twice a Clinics by oral by oral day by route for 7 route for 7 oral route days. days. for 7 days. tramadol 50 tramadol 50 No tramadol [place] mg tablet mg tablet 50 mg Comm uni TAKE 1 TAKE 1 tablet ty TABLET BY TABLET BY TAKE 1 [facility] MOUTH AT MOUTH AT TABLET BY l BEDTIME AND BEDTIME AND MOUTH AT Clinics IN MORNING IN MORNING BEDTIME AND IN MORNING amlodipine amlodipine No amlodipine [place] 5 mg tablet 5 mg tablet 5 mg [facility] TAKE 1 TAKE 1 tablet ty TABLET BY TABLET BY TAKE 1 [facility] MOUTH EVERY MOUTH EVERY TABLET BY l DAY DAY MOUTH Clinics EVERY DAY atorvastati atorvastati No atorvastat [place] n 20 mg n 20 mg in 20 mg Commu ni tablet TAKE tablet TAKE tablet ty 1 TABLET BY 1 TABLET BY TAKE 1 [facility]ospita MOUTH EVERY MOUTH EVERY TABLET BY l DAY FOR 90 DAY FOR 90 MOUTH Cl inics DAYS DAYS EVERY DAY FOR 90 DAYS BD Kalee 2nd BD Kalee 2nd No BD Kalee [place] Gen Pen Gen Pen 2nd Gen Commun i Needle 32 Needle 32 Pen Needle ty gauge x gauge x 32 gauge x [facility] 32" 1 32" 1 32" 1 l TIME A DAY TIME A DAY TIME A DAY Clinics ceftriaxone ceftriaxone No 500mg ceftriaxon [place] 500 mg 500 mg e 500 mg [facility] solution solution solution ty for for for [facility] injection injection injection l Take 500 mg Take 500 mg Take 500 Clinics by by mg by injection injection injection route. pt route. pt route. pt tolerated tolerated tolerated well well well cholecalcif cholecalcif No cholecalci [place] ghada ghada ferol Communi (vitamin (vitamin (vitamin ty D3) 1,250 D3) 1,250 D3) 1,250 [facility] mcg (50,000 mcg (50,000 mcg l unit) unit) (50,000 Clinics capsule capsule unit) TAKE 1 TAKE 1 capsule CAPSULE CAPSULE TAKE 1 EVERY 15 EVERY 15 CAPSULE DAYS DAYS EVERY 15 DAYS clonazepam clonazepam No clonazepam [facility] 0.5 mg 0.5 mg 0.5 mg [facility]i tablet TAKE tablet TAKE tablet ty 1 TABLET BY 1 TABLET BY TAKE 1 [facility] MOUTH EVERY MOUTH EVERY TABLET BY l DAY DAY MOUTH Clinics NEEDED NEEDED EVERY DAY NEEDED cyclobenzap cyclobenzap No cyclobenza [place] rine 10 mg rine 10 mg rita 10 Communi tablet tablet mg tablet ty [facility]osp[facility] l Clinics diclofenac diclofenac No diclofenac [place] sodium 75 sodium 75 sodium 75 Communi [...] DAY EVERY DAY famotidine famotidine No famotidine [place] 20 mg 20 mg 20 mg Communi tablet Take tablet Take tablet ty 1 tablet 1 tablet Take 1 Hospi ta daily by daily by tablet l mouth mouth daily by Clinics mouth ferrous ferrous No ferrous [place] sulfate 220 sulfate 220 sulfate Communi mg (44 mg mg (44 mg 220 mg (44 ty iron)/5 mL iron)/5 mL mg iron)/5 Hosp[facility] oral elixir oral elixir mL oral l Take 5 ML Take 5 ML elixir Cli nics BID by BID by Take 5 ML mouth mouth BID by mouth glipizide glipizide No glipizide [facility] ER 2.5 mg ER 2.5 mg ER 2.5 mg Communi tablet, tablet, tablet, ty extended extended extended [facility] release 24 release 24 release 24 l hr hr hr Clinics Humatrope 6 Humatrope 6 No Humatrope [place] mg (18 mg (18 6 mg (18 Communi unit) unit) unit) ty injection injection injection [facility] cartridge cartridge cartridge l INJECT INJECT INJECT Clinics 0.3MG 0.3MG 0.3MG SUBCUTANEOU SUBCUTANEOU SUBCUTANEO SLY EVERY SLY EVERY USLY EVERY DAY DAY DAY hydrocortis hydrocortis No hydrocorti [place] one 20 mg one 20 mg sone 20 mg Commun[facility] tablet TAKE tablet TAKE tablet ty 2 TABLETS 2 TABLETS TAKE 2 [facility] BY MOUTH BY MOUTH TABLETS BY l EVERY DAY EVERY DAY MOUTH Clin ics IN THE IN THE EVERY DAY MORNING MORNING IN THE MORNING isosorbide isosorbide No isosorbide [facility] mononitrate mononitrate mononitrat Communi ER 30 mg ER 30 mg e ER 30 mg t y tablet,exte tablet,exte tablet,ext [facility]osp[facility] nded nded ended l release 24 release 24 release 24 Clinics hr TAKE 1 hr TAKE 1 hr TAKE 1 TABLET BY TABLET BY TABLET BY MOUTH EVERY MOUTH EVERY MOUTH DAY DAY EVERY DAY Klor-Con 10 Klor-Con 10 No Klor-Con [facility] mEq mEq 10 mEq Communi tablet,exte tablet,exte tablet,ext ty nded nded ended [facility]osp[facility] release release release l TAKE 1 TAKE 1 TAKE 1 Clinics TABLET BY TABLET BY TABLET BY MOUTH EVERY MOUTH EVERY MOUTH DAY WITH DAY WITH EVERY DAY FOOD FOOD WITH FOOD levothyroxi levothyroxi No levothyrox [place] ne 112 mcg ne 112 mcg ine 112 Communi tablet 1 tablet 1 mcg tablet t y TAB DAILY TAB DAILY 1 TAB [facility] 1/2 HR. 1/2 HR. DAILY 1/2 l BEFORE BEFORE HR. BEFORE Clini cs BREAKFAST BREAKFAST BREAKFAST WITH WATER WITH WATER WITH WATER lidocaine lidocaine No 2.1mL lidocaine [place] (PF) 10 (PF) 10 (PF) 10 Commun i mg/mL (1 %) mg/mL (1 %) mg/mL (1 ty injection injection %) Hospi ta solution solution injection l Take 2.1 mL Take 2.1 mL solution Clinics by by Take 2.1 injection injection mL by route. route. injection route. lidocaine lidocaine No 2.1mL Q1D lidocaine [place] (PF) 50 (PF) 50 (PF) 50 Commun [...] mL lidocaine 5 lidocaine 5 No lidocaine [place] % topical % topical 5 % Commu ni patch patch topical ty patch [facility]osp[facility] l Clinics liothyronin liothyronin No liothyroni [place] e 5 mcg e 5 mcg ne 5 mcg Commu ni tablet tablet tablet ty [facility] l Clinics mirtazapine mirtazapine No mirtazapin [place] 15 mg 15 mg e 15 mg Communi tablet TAKE tablet TAKE tablet ty 1 TABLET BY 1 TABLET BY TAKE 1 [facility] MOUTH MOUTH TABLET BY l EVERYDAY AT EVERYDAY AT MOUTH Clinics BEDTIME BEDTIME EVERYDAY AT BEDTIME nitroglycer nitroglycer No 1 nitroglyce [place] in 0.4 mg in 0.4 mg rin 0.4 mg Communi sublingual sublingual sublingual ty tablet tablet tablet Hospita Place [address] 1 l tablet as tablet as tablet as Clinics needed by needed by needed by sublingual sublingual sublingual route. route. route. omeprazole omeprazole No omeprazole [facility] 20 mg 20 mg 20 mg Communi [...] DAY l Clinics pantoprazol pantoprazol No pantoprazo [place] e 40 mg e 40 mg le 40 mg Commu ni tablet,indira tablet,indira tablet,del ty yed release yed release ayed [facility] Take 1 Take 1 release l tablet BID tablet BID Take 1 C linics by mouth by mouth tablet BID by mouth phenazopyri phenazopyri No phenazopyr [facility] dine 200 mg dine 200 mg idine 200 Communi tablet TAKE tablet TAKE mg tablet ty 1 TABLET BY 1 TABLET BY TAKE 1 [facility]ospita MOUTH THREE MOUTH THREE TABLET BY l TIMES A DAY TIMES A DAY MOUTH Clinics FOR 3 DAYS FOR 3 DAYS THREE TIMES A DAY FOR 3 DAYS potassium potassium No potassium [place] chloride ER chloride ER chloride Communi 20 mEq 20 mEq ER 20 mEq ty tablet,exte tablet,exte tablet,ext [facility]osp[facility] nded nded ended l release(par release(par release(pa Clinics t/cryst) t/cryst) rt/cryst) TAKE 1 TAKE 1 TAKE 1 TABLET BY TABLET BY TABLET BY MOUTH EVERY MOUTH EVERY MOUTH DAY DAY EVERY DAY Santyl 250 Santyl 250 No Santyl 250 [place] unit/gram unit/gram unit/gram [facility]i topical topical topical ty ointment ointment ointment [facility] APPL[facility] A [facility] TO AMOUNT TO AMOUNT TO WOUND 3 WOUND 3 WOUND 3 TIMES A TIMES A TIMES A WEEK WEEK WEEK sotalol 160 sotalol 160 No sotalol [place] mg tablet mg tablet 160 mg Com raz TAKE 1 TAKE 1 tablet ty TABLET BY TABLET BY TAKE 1 [facility] MOUTH EVERY MOUTH EVERY TABLET BY l DAY DAY MOUTH Clinics EVERY DAY sulfamethox sulfamethox No sulfametho [place] azole 800 azole 800 xazole 800 Communi [...] Suprax 200 No 5mL BID Suprax 200 [place] mg/5 mL mg/5 mL mg/5 mL Commun i oral oral [facility] Take 5 mL Take 5 mL l twice a day twice a day twice a Clinics by oral by oral day by route for 7 route for 7 oral route days. days. for 7 days. tramadol 50 tramadol 50 No tramadol [place] mg tablet mg tablet 50 mg Comm uni TAKE 1 TAKE 1 tablet ty TABLET BY TABLET BY TAKE 1 [facility] MOUTH AT MOUTH AT TABLET BY l BEDTIME AND BEDTIME AND MOUTH AT Clinics IN MORNING IN MORNING BEDTIME AND IN MORNING amlodipine amlodipine No amlodipine [place] 5 mg tablet 5 mg tablet 5 mg [facility] TAKE 1 TAKE 1 tablet ty TABLET BY TABLET BY TAKE 1 [facility] MOUTH EVERY MOUTH EVERY TABLET BY l DAY DAY MOUTH Clinics EVERY DAY atorvastati atorvastati No atorvastat [place] n 20 mg n 20 mg in 20 mg Commu ni tablet TAKE tablet TAKE tablet ty 1 TABLET BY 1 TABLET BY TAKE 1 [facility]ospita MOUTH EVERY MOUTH EVERY TABLET BY l DAY FOR 90 DAY FOR 90 MOUTH Cl inics DAYS DAYS EVERY DAY FOR 90 DAYS BD Kalee 2nd BD Kalee 2nd No BD Kalee [place] Gen Pen Gen Pen 2nd Gen Commun i Needle 32 Needle 32 Pen Needle ty gauge x gauge x 32 gauge x [facility] " 1 " 1 " 1 l TIME A DAY TIME A DAY TIME A DAY Clinics ceftriaxone ceftriaxone No 500mg ceftriaxon [place] 500 mg 500 mg e 500 mg Communi solution solution solution ty for for for [facility]osp[facility] injection injection injection l Take 500 mg Take 500 mg Take 500 Clinics by by mg by injection injection injection route. pt route. pt route. pt tolerated tolerated tolerated well well well cholecalcif cholecalcif No cholecalci [place] ghada ghada ferol Communi (vitamin (vitamin (vitamin ty D3) 1,250 D3) 1,250 D3) 1,250 [facility]osp[facility] mcg (50,000 mcg (50,000 mcg l unit) unit) (50,000 Clinics capsule capsule unit) TAKE 1 TAKE 1 capsule CAPSULE CAPSULE TAKE 1 EVERY 15 EVERY 15 CAPSULE DAYS DAYS EVERY 15 DAYS clonazepam clonazepam No clonazepam [facility] 0.5 mg 0.5 mg 0.5 mg Communi tablet TAKE tablet TAKE tablet ty 1 TABLET BY 1 TABLET BY TAKE 1 [facility] MOUTH EVERY MOUTH EVERY TABLET BY l DAY DAY MOUTH Clinics NEEDED NEEDED EVERY DAY NEEDED cyclobenzap cyclobenzap No cyclobenza [place] rine 10 mg rine 10 mg rita 10 Communi tablet tablet mg tablet ty [facility]osp[facility] l Clinics diclofenac diclofenac No diclofenac [place] sodium 75 sodium 75 sodium 75 Communi [...] DAY EVERY DAY famotidine famotidine No famotidine [place] 20 mg 20 mg 20 mg Communi tablet Take tablet Take tablet ty 1 tablet 1 tablet Take 1 Hospi ta daily by daily by tablet l mouth mouth daily by Clinics mouth ferrous ferrous No ferrous [place] sulfate 220 sulfate 220 sulfate Communi mg (44 mg mg (44 mg 220 mg (44 ty iron)/5 mL iron)/5 mL mg iron)/5 Hospita oral elixir oral elixir mL oral l Take 5 ML Take 5 ML elixir Cli nics BID by BID by Take 5 ML mouth mouth BID by mouth glipizide glipizide No glipizide [place] ER 2.5 mg ER 2.5 mg ER 2.5 mg Communi tablet, tablet, tablet, ty extended extended extended [facility] release 24 release 24 release 24 l hr hr hr Clinics Humatrope 6 Humatrope 6 No Humatrope [place] mg (18 mg (18 6 mg (18 Communi unit) unit) unit) ty injection injection injection [facility] cartridge cartridge cartridge l INJECT INJECT INJECT [facility] 0.3MG 0.3MG 0.3MG SUBCUTANEOU SUBCUTANEOU SUBCUTANEO SLY EVERY SLY EVERY USLY EVERY DAY DAY DAY hydrocortis hydrocortis No hydrocorti [place] one 20 mg one 20 mg sone 20 mg Communi tablet TAKE tablet TAKE tablet ty 2 TABLETS 2 TABLETS TAKE 2 [facility] BY MOUTH BY MOUTH TABLETS BY l EVERY DAY EVERY DAY MOUTH Clin ics IN THE IN THE EVERY DAY MORNING MORNING IN THE MORNING isosorbide isosorbide No isosorbide [place] mononitrate mononitrate mononitrat Communi ER 30 mg ER 30 mg e ER 30 mg t y tablet,exte tablet,exte tablet,ext [facility]ospita nded nded ended l release 24 release 24 release 24 Clinics hr TAKE 1 hr TAKE 1 hr TAKE 1 TABLET BY TABLET BY TABLET BY MOUTH EVERY MOUTH EVERY MOUTH DAY DAY EVERY DAY Klor-Con 10 Klor-Con 10 No Klor-Con [place] mEq mEq 10 mEq Communi tablet,exte tablet,exte tablet,ext ty nded nded ended [facility]osp[facility] release release release l TAKE 1 TAKE 1 TAKE 1 Clinics TABLET BY TABLET BY TABLET BY MOUTH EVERY MOUTH EVERY MOUTH DAY WITH DAY WITH EVERY DAY FOOD FOOD WITH FOOD levothyroxi levothyroxi No levothyrox [place] ne 112 mcg ne 112 mcg ine 112 Communi tablet 1 tablet 1 mcg tablet t y TAB DAILY TAB DAILY 1 TAB [facility] 1/2 HR. 1/2 HR. DAILY 1/2 l BEFORE BEFORE HR. BEFORE Clini cs BREAKFAST BREAKFAST BREAKFAST WITH WATER WITH WATER WITH WATER lidocaine lidocaine No 2.1mL lidocaine [place] (PF) 10 (PF) 10 (PF) 10 Commun i mg/mL (1 %) mg/mL (1 %) mg/mL (1 ty injection injection %) Hospi ta solution solution injection l Take 2.1 mL Take 2.1 mL solution Clinics by by Take 2.1 injection injection mL by route. route. injection route. lidocaine lidocaine No 2.1mL Q1D lidocaine [place] (PF) 50 (PF) 50 (PF) 50 Commun [...] mL lidocaine 5 lidocaine 5 No lidocaine [place] % topical % topical 5 % Commu ni patch patch topical ty patch [facility] liothyronin liothyronin No liothyroni [place] e 5 mcg e 5 mcg ne 5 mcg Commu ni tablet tablet tablet ty [facility] mirtazapine mirtazapine No mirtazapin [place] 15 mg 15 mg e 15 mg Communi tablet TAKE tablet TAKE tablet ty 1 TABLET BY 1 [facility] M[facility] l EVERYDAY AT EVERYDAY AT MOUTH Clinics BEDTIME BEDTIME EVERYDAY AT BEDTIME nitroglycer nitroglycer No 1 nitroglyce [place] in 0.4 mg in 0.4 mg rin 0.4 mg Communi sublingual sublingual sublingual ty tablet [facility] [address] 1 l tablet as tablet as tablet as Clinics needed by needed by needed by sublingual sublingual sublingual route. route. route. omeprazole omeprazole No omeprazole [place] 20 mg 20 mg 20 mg Communi [...] DAY l Clinics pantoprazol pantoprazol No pantoprazo [place] e 40 mg e 40 mg le 40 mg Commu ni tablet,indira tablet,indira tablet,del ty yed release yed release ayed [facility] Take 1 Take 1 release l tablet BID tablet BID Take 1 C linics by mouth by mouth tablet BID by mouth phenazopyri phenazopyri No phenazopyr [place] dine 200 mg dine 200 mg idine 200 Communi tablet TAKE tablet TAKE mg tablet ty 1 TABLET BY 1 TABLET BY TAKE 1 Hospita MOUTH THREE MOUTH THREE TABLET BY l TIMES A DAY TIMES A DAY MOUTH Clinics FOR 3 DAYS FOR 3 DAYS THREE TIMES A DAY FOR 3 DAYS potassium potassium No potassium [place] chloride ER chloride ER chloride Communi 20 mEq 20 mEq ER 20 mEq ty tablet,exte tablet,exte tablet,ext [facility]ospita nded nded ended l release(par release(par release(nc Clinics t/cryst) t/cryst) rt/cryst) TAKE 1 TAKE 1 TAKE 1 TABLET BY TABLET BY TABLET BY MOUTH EVERY MOUTH EVERY MOUTH DAY DAY EVERY DAY Santyl 250 Santyl 250 No Santyl 250 [place] unit/gram unit/gram unit/gram [facility]i topical topical topical ty ointment ointment ointment [facility] APPLY A APPLY A APPLY A l DIONY [facility] THICK THICK THICK AMOUNT TO AMOUNT TO AMOUNT TO WOUND 3 WOUND 3 WOUND 3 TIMES A TIMES A TIMES A WEEK WEEK WEEK sotalol 160 sotalol 160 No sotalol [place] mg tablet mg tablet 160 mg Com raz TAKE 1 TAKE 1 tablet ty TABLET BY TABLET BY TAKE 1 [facility] MOUTH EVERY MOUTH EVERY TABLET BY l DAY DAY MOUTH Clinics EVERY DAY sulfamethox sulfamethox No sulfametho [place] azole 800 azole 800 xazole 800 Communi [...] Suprax 200 No 5mL BID Suprax 200 [place] mg/5 mL mg/5 mL mg/5 mL Commun i oral oral oral ty suspension suspension suspension [facility]osp[facility] Take 5 mL Take 5 mL Take 5 mL l twice a day twice a day twice a Clinics by oral by oral day by route for 7 route for 7 oral route days. days. for 7 days. tramadol 50 tramadol 50 No tramadol [place] mg tablet mg tablet 50 mg Comm uni TAKE 1 TAKE 1 tablet ty TABLET BY TABLET BY TAKE 1 [facility] MOUTH AT MOUTH AT TABLET BY l BEDTIME AND BEDTIME AND MOUTH AT Clinics IN MORNING IN MORNING BEDTIME AND IN MORNING amlodipine amlodipine No amlodipine [place] 5 mg tablet 5 mg tablet 5 mg C [facility] TAKE 1 TAKE 1 tablet ty TABLET BY TABLET BY TAKE 1 [facility] MOUTH EVERY MOUTH EVERY TABLET BY l DAY DAY MOUTH Clinics EVERY DAY atorvastati atorvastati No atorvastat [place] n 20 mg n 20 mg in 20 mg Commu ni tablet TAKE tablet TAKE tablet ty 1 TABLET BY 1 TABLET BY TAKE 1 Hospita MOUTH EVERY MOUTH EVERY TABLET BY l DAY FOR 90 DAY FOR 90 MOUTH Cl inics DAYS DAYS EVERY DAY FOR 90 DAYS BD [facility]e 2nd BD K[facility] 2nd No BD [facility] [place] Gen Pen Gen Pen 2nd Gen Commun i Needle 32 Needle 32 Pen Needle ty gauge x gauge x 32 gauge x [facility] " 1 " 1 " 1 l TIME A DAY TIME A DAY TIME A DAY Clinics ceftriaxone ceftriaxone No 500mg ceftriaxon [place] 500 mg 500 mg e 500 mg Communi solution solution solution ty for for for Hospita injection injection injection l Take 500 mg Take 500 mg Take 500 Clinics by by mg by injection injection injection route. pt route. pt route. pt tolerated tolerated tolerated well well well cholecalcif cholecalcif No cholecalci [place] ghada ghada ferol [facility] (vitamin (vitamin (vitamin ty D3) 1,250 D3) 1,250 D3) 1,250 Hospita mcg (50,000 mcg (50,000 mcg l unit) unit) (50,000 Clinics capsule capsule unit) TAKE 1 TAKE 1 capsule CAPSULE CAPSULE TAKE 1 EVERY 15 EVERY 15 CAPSULE DAYS DAYS EVERY 15 DAYS clonazepam clonazepam No clonazepam [place] 0.5 mg 0.5 mg 0.5 mg [facility] tablet TAKE tablet TAKE tablet ty 1 TABLET BY 1 TABLET BY TAKE 1 Hospita MOUTH EVERY MOUTH EVERY TABLET BY l DAY DAY MOUTH Clinics NEEDED NEEDED EVERY DAY NEEDED cyclobenzap cyclobenzap No cyclobenza [place] rine 10 mg rine 10 mg rita 10 Communi tablet tablet mg tablet ty [facility]ospita l Clinics diclofenac diclofenac No diclofenac [place] sodium 75 sodium 75 sodium 75 Communi [...] DAY EVERY DAY famotidine famotidine No famotidine [place] 20 mg 20 mg 20 mg [facility] tablet Take tablet Take tablet ty 1 tablet 1 tablet Take 1 Hospi ta daily by daily by tablet l mouth mouth daily by Clinics mouth ferrous ferrous No ferrous [place] sulfate 220 sulfate 220 sulfate [facility] mg (44 mg mg (44 mg 220 mg (44 ty iron)/5 mL iron)/5 mL mg iron)/5 Hospita oral elixir oral elixir mL oral l Take 5 ML Take 5 ML elixir Cli nics BID by BID by Take 5 ML mouth mouth BID by mouth glipizide glipizide No glipizide [place] ER 2.5 mg ER 2.5 mg ER 2.5 mg [facility] tablet, tablet, tablet, ty extended extended extended [facility] release 24 release 24 release 24 l hr hr hr Clinics Humatrope 6 Humatrope 6 No Humatrope [place] mg (18 mg (18 6 mg (18 [facility] unit) unit) unit) ty injection injection injection [facility] cartridge cartridge cartridge l INJECT INJECT INJECT Clinics 0.3MG 0.3MG 0.3MG SUBCUTANEOU SUBCUTANEOU SUBCUTANEO SLY EVERY SLY EVERY USLY EVERY DAY DAY DAY hydrocortis hydrocortis No hydrocorti [place] one 20 mg one 20 mg sone 20 mg [facility] tablet TAKE tablet TAKE tablet ty 2 TABLETS 2 TABLETS TAKE 2 [facility] BY MOUTH BY MOUTH TABLETS BY l EVERY DAY EVERY DAY MOUTH Clin ics IN THE IN THE EVERY DAY MORNING MORNING IN THE MORNING isosorbide isosorbide No isosorbide [place] mononitrate mononitrate mononitrat [facility] ER 30 mg ER 30 mg e ER 30 mg t y tablet,exte tablet,exte tablet,ext Hospita nded nded ended l release 24 release 24 release 24 Clinics hr TAKE 1 hr TAKE 1 hr TAKE 1 TABLET BY TABLET BY TABLET BY MOUTH EVERY MOUTH EVERY MOUTH DAY DAY EVERY DAY Klor-Con 10 Klor-Con 10 No Klor-Con [place] mEq mEq 10 mEq [facility] tablet,exte tablet,exte tablet,ext ty nded nded ended Hospita release release release l TAKE 1 TAKE 1 TAKE 1 Clinics TABLET BY TABLET BY TABLET BY MOUTH EVERY MOUTH EVERY MOUTH DAY WITH DAY WITH EVERY DAY FOOD FOOD WITH FOOD levothyroxi levothyroxi No levothyrox [place] ne 112 mcg ne 112 mcg ine 112 [facility] tablet 1 tablet 1 mcg tablet t y TAB DAILY TAB DAILY 1 TAB [facility] 1/2 HR. 1/2 HR. DAILY 1/2 l BEFORE BEFORE HR. BEFORE Clini cs BREAKFAST BREAKFAST BREAKFAST WITH WATER WITH WATER WITH WATER lidocaine lidocaine No 2.1mL lidocaine [place] (PF) 10 (PF) 10 (PF) 10 Commun i mg/mL (1 %) mg/mL (1 %) mg/mL (1 ty injection injection %) Hospi ta solution solution injection l Take 2.1 mL Take 2.1 mL solution Clinics by by Take 2.1 injection injection mL by route. route. injection route. lidocaine lidocaine No 2.1mL Q1D lidocaine [place] (PF) 50 (PF) 50 (PF) 50 Commun [...] mL lidocaine 5 lidocaine 5 No lidocaine [place] % topical % topical 5 % Commu ni patch patch topical ty patch [facility] liothyronin liothyronin No liothyroni [place] e 5 mcg e 5 mcg ne 5 mcg Commu ni tablet tablet tablet ty [facility] mirtazapine mirtazapine No mirtazapin [place] 15 mg 15 mg e 15 mg [facility] tablet TAKE tablet TAKE tablet ty 1 TABLET BY 1 [facility] TABLET BY l EVERYDAY AT EVERYDAY AT MOUTH Clinics BEDTIME BEDTIME EVERYDAY AT BEDTIME nitroglycer nitroglycer No 1 nitroglyce [place] in 0.4 mg in 0.4 mg rin 0.4 mg [facility] sublingual sublingual sublingual ty tablet tablet tablet [facility] [address] 1 l tablet as tablet as tablet as Clinics needed by needed by needed by sublingual sublingual sublingual route. route. route. omeprazole omeprazole No omeprazole [place] 20 mg 20 mg 20 mg Communi [...] ty gauge TEST gauge TEST gauge TEST [facility] TWICE A DAY TWICE A DAY TWICE [...] A DAY Clinics pantoprazol pantoprazol No pantoprazo [place] e 40 mg e 40 mg le 40 mg Commu ni tablet,indira tablet,indira tablet,del ty yed release yed release ayed H [facility]spita Take 1 Take 1 release l tablet BID tablet BID Take 1 C linics by mouth by mouth tablet BID by mouth phenazopyri phenazopyri No phenazopyr [place] dine 200 mg dine 200 mg idine 200 [facility] tablet TAKE tablet TAKE mg tablet ty 1 TABLET BY 1 TABLET BY TAKE 1 Hospita MOUTH THREE MOUTH THREE TABLET BY l TIMES A DAY TIMES A DAY MOUTH Clinics FOR 3 DAYS FOR 3 DAYS THREE TIMES A DAY FOR 3 DAYS potassium potassium No potassium [place] chloride ER chloride ER chloride [facility]i 20 mEq 20 mEq ER 20 mEq ty tablet,exte tablet,exte tablet,ext Hospita nded nded ended l release(par release(par release(pa Clinics t/cryst) t/cryst) rt/cryst) TAKE 1 TAKE 1 TAKE 1 TABLET BY TABLET BY TABLET BY MOUTH EVERY MOUTH EVERY MOUTH DAY DAY EVERY DAY Santyl 250 Santyl 250 No Santyl 250 [place] unit/gram unit/gram unit/gram [facility] topical topical topical ty ointment ointment ointment [facility] APPLY A APPLY A APPLY A l DIONY [facility] THICK THICK THICK AMOUNT TO AMOUNT TO AMOUNT TO WOUND 3 WOUND 3 WOUND 3 TIMES A TIMES A TIMES A WEEK WEEK WEEK sotalol 160 sotalol 160 No sotalol [place] mg tablet mg tablet 160 mg Com raz TAKE 1 TAKE 1 tablet ty TABLET BY TABLET BY TAKE 1 [facility] MOUTH EVERY MOUTH EVERY TABLET BY l DAY DAY MOUTH Clinics EVERY DAY sulfamethox sulfamethox No sulfametho [place] azole 800 azole 800 xazole 800 Communi [...] Suprax 200 No 5mL BID Suprax 200 [place] mg/5 mL mg/5 mL mg/5 mL Commun i oral oral oral ty suspension suspension suspension [facility] Take 5 mL Take 5 mL Take 5 mL l twice a day twice a day twice a Clinics by oral by oral day by route for 7 route for 7 oral route days. days. for 7 days. tramadol 50 tramadol 50 No tramadol [place] mg tablet mg tablet 50 mg Comm uni TAKE 1 TAKE 1 tablet ty TABLET BY TABLET BY TAKE 1 [facility] MOUTH AT MOUTH AT TABLET BY l BEDTIME AND BEDTIME AND MOUTH AT Clinics IN MORNING IN MORNING BEDTIME AND IN MORNING amlodipine amlodipine No amlodipine [place] 5 mg tablet 5 mg tablet 5 mg C [facility] TAKE 1 TAKE 1 tablet ty TABLET BY TABLET BY TAKE 1 [facility] MOUTH EVERY MOUTH EVERY TABLET BY l DAY DAY MOUTH Clinics EVERY DAY atorvastati atorvastati No atorvastat [place] n 20 mg n 20 mg in 20 mg Commu ni tablet TAKE tablet TAKE tablet ty 1 TABLET BY 1 TABLET BY TAKE 1 Hospita MOUTH EVERY MOUTH EVERY TABLET BY l DAY FOR 90 DAY FOR 90 MOUTH Cl inics DAYS DAYS EVERY DAY FOR 90 DAYS BD [facility] 2nd BD [facility]ale[facility] 2nd No BD Kalee [place] Gen Pen Gen Pen 2nd Gen Commun i Needle 32 Needle 32 Pen Needle ty gauge x gauge x 32 gauge x [facility] " 1 " 1 " 1 l TIME A DAY TIME A DAY TIME A DAY Clinics ceftriaxone ceftriaxone No 500mg ceftriaxon [place] 500 mg 500 mg e 500 mg [facility] solution solution solution ty for for for Hospita injection injection injection l Take 500 mg Take 500 mg Take 500 Clinics by by mg by injection injection injection route. pt route. pt route. pt tolerated tolerated tolerated well well well cholecalcif cholecalcif No cholecalci [place] ghada ghada ferol [facility] (vitamin (vitamin (vitamin ty D3) 1,250 D3) 1,250 D3) 1,250 [facility]ospita mcg (50,000 mcg (50,000 mcg l unit) unit) (50,000 Clinics capsule capsule unit) TAKE 1 TAKE 1 capsule CAPSULE CAPSULE TAKE 1 EVERY 15 EVERY 15 CAPSULE DAYS DAYS EVERY 15 DAYS clonazepam clonazepam No clonazepam [place] 0.5 mg 0.5 mg 0.5 mg [facility] tablet TAKE tablet TAKE tablet ty 1 TABLET BY 1 TABLET BY TAKE 1 Hospita MOUTH EVERY MOUTH EVERY TABLET BY l DAY DAY MOUTH Clinics NEEDED NEEDED EVERY DAY NEEDED cyclobenzap cyclobenzap No cyclobenza [place] rine 10 mg rine 10 mg rita 10 Communi tablet tablet mg tablet ty [facility]osp[facility] l Clinics diclofenac diclofenac No diclofenac [place] sodium 75 sodium 75 sodium 75 Communi [...] DAY EVERY DAY famotidine famotidine No famotidine [place] 20 mg 20 mg 20 mg [facility] tablet Take tablet Take tablet ty 1 tablet 1 tablet Take 1 Hospi ta daily by daily by tablet l mouth mouth daily by Clinics mouth ferrous ferrous No ferrous [place] sulfate 220 sulfate 220 sulfate [facility] mg (44 mg mg (44 mg 220 mg (44 ty iron)/5 mL iron)/5 mL mg iron)/5 Hospita oral elixir oral elixir mL oral l Take 5 ML Take 5 ML elixir Cli nics BID by BID by Take 5 ML mouth mouth BID by mouth glipizide glipizide No glipizide [place] ER 2.5 mg ER 2.5 mg ER 2.5 mg [facility] tablet, tablet, tablet, ty extended extended extended [facility] release 24 release 24 release 24 l hr hr hr Clinics Humatrope 6 Humatrope 6 No Humatrope [place] mg (18 mg (18 6 mg (18 [facility] unit) unit) unit) ty injection injection injection [facility] cartridge cartridge cartridge l INJECT INJECT INJECT Clinics 0.3MG 0.3MG 0.3MG SUBCUTANEOU SUBCUTANEOU SUBCUTANEO SLY EVERY SLY EVERY USLY EVERY DAY DAY DAY hydrocortis hydrocortis No hydrocorti [place] one 20 mg one 20 mg sone 20 mg [facility] tablet TAKE tablet TAKE tablet ty 2 TABLETS 2 TABLETS TAKE 2 [facility] BY MOUTH BY MOUTH TABLETS BY l EVERY DAY EVERY DAY MOUTH Clin ics IN THE IN THE EVERY DAY MORNING MORNING IN THE MORNING isosorbide isosorbide No isosorbide [place] mononitrate mononitrate mononitrat [facility] ER 30 mg ER 30 mg e ER 30 mg t y tablet,exte tablet,exte tablet,ext Hospita nded nded ended l release 24 release 24 release 24 Clinics hr TAKE 1 hr TAKE 1 hr TAKE 1 TABLET BY TABLET BY TABLET BY MOUTH EVERY MOUTH EVERY MOUTH DAY DAY EVERY DAY Klor-Con 10 Klor-Con 10 No Klor-Con [place] mEq mEq 10 mEq [facility] tablet,exte tablet,exte tablet,ext ty nded nded ended Hospita release release release l TAKE 1 TAKE 1 TAKE 1 Clinics TABLET BY TABLET BY TABLET BY MOUTH EVERY MOUTH EVERY MOUTH DAY WITH DAY WITH EVERY DAY FOOD FOOD WITH FOOD levothyroxi levothyroxi No levothyrox [place] ne 112 mcg ne 112 mcg ine 112 [facility] tablet 1 tablet 1 mcg tablet t y TAB DAILY TAB DAILY 1 TAB [facility] 1/2 HR. 1/2 HR. DAILY 1/2 l BEFORE BEFORE HR. BEFORE Clini cs BREAKFAST BREAKFAST BREAKFAST WITH WATER WITH WATER WITH WATER lidocaine lidocaine No 2.1mL lidocaine [place] (PF) 10 (PF) 10 (PF) 10 Commun i mg/mL (1 %) mg/mL (1 %) mg/mL (1 ty injection injection %) Hospi ta solution solution injection l Take 2.1 mL Take 2.1 mL solution Clinics by by Take 2.1 injection injection mL by route. route. injection route. lidocaine lidocaine No 2.1mL Q1D lidocaine [place] (PF) 50 (PF) 50 (PF) 50 Commun [...] mL lidocaine 5 lidocaine 5 No lidocaine [place] % topical % topical 5 % Commu ni patch patch topical ty patch [facility] liothyronin liothyronin No liothyroni [place] e 5 mcg e 5 mcg ne 5 mcg Commu ni tablet tablet tablet ty [facility] mirtazapine mirtazapine No mirtazapin [place] 15 mg 15 mg e 15 mg Commun[facility] tablet TAKE tablet TAKE tablet ty 1 TABLET BY 1 TABLET BY TAKE 1 Hospita MOUTH MOUTH TABLET BY l EVERYDAY AT EVERYDAY AT MOUTH Clinics BEDTIME BEDTIME EVERYDAY AT BEDTIME nitroglycer nitroglycer No 1 nitroglyce [place] in 0.4 mg in 0.4 mg rin 0.4 mg [facility]i sublingual sublingual sublingual ty tablet tablet tablet Hospita Place [address] 1 l tablet as tablet as tablet as Clinics needed by needed by needed by sublingual sublingual sublingual route. route. route. omeprazole omeprazole No omeprazole [place] 20 mg 20 mg 20 mg Communi [...] DAY l Clinics pantoprazol pantoprazol No pantoprazo [place] e 40 mg e 40 mg le 40 mg Commu ni tablet,indira tablet,indira tablet,del ty yed release yed release ayed H [facility]spita Take 1 Take 1 release l tablet BID tablet BID Take 1 C linics by mouth by mouth tablet BID by mouth phenazopyri phenazopyri No phenazopyr [place] dine 200 mg dine 200 mg idine 200 Communi tablet TAKE tablet TAKE mg tablet ty 1 TABLET BY 1 TABLET BY TAKE 1 Hospita MOUTH THREE MOUTH THREE TABLET BY l TIMES A DAY TIMES A DAY MOUTH Clinics FOR 3 DAYS FOR 3 DAYS THREE TIMES A DAY FOR 3 DAYS potassium potassium No potassium [place] chloride ER chloride ER chloride Communi 20 mEq 20 mEq ER 20 mEq ty tablet,exte tablet,exte tablet,ext Hospita nded nded ended l release(par release(par release(pa Clinics t/cryst) t/cryst) rt/cryst) TAKE 1 TAKE 1 TAKE 1 TABLET BY TABLET BY TABLET BY MOUTH EVERY MOUTH EVERY MOUTH DAY DAY EVERY DAY Santyl 250 Santyl 250 No Santyl 250 [place] unit/gram unit/gram unit/gram [facility] topical topical topical ty ointment ointment ointment [facility] APPLY A APPLY A APPLY A l DIONY DIONY [facility] THICK THICK THICK AMOUNT TO AMOUNT TO AMOUNT TO WOUND 3 WOUND 3 WOUND 3 TIMES A TIMES A TIMES A WEEK WEEK WEEK sotalol 160 sotalol 160 No sotalol [place] mg tablet mg tablet 160 mg Com raz TAKE 1 TAKE 1 tablet ty TABLET BY TABLET BY TAKE 1 [facility] MOUTH EVERY MOUTH EVERY TABLET BY l DAY DAY MOUTH Clinics EVERY DAY sulfamethox sulfamethox No sulfametho [place] azole 800 azole 800 xazole 800 Communi [...] Suprax 200 No 5mL BID Suprax 200 [place] mg/5 mL mg/5 mL mg/5 mL Commun i oral oral oral ty suspension suspension suspension Hosp[facility] Take 5 mL Take 5 mL Take 5 mL l twice a day twice a day twice a Clinics by oral by oral day by route for 7 route for 7 oral route days. days. for 7 days. tramadol 50 tramadol 50 No tramadol [place] mg tablet mg tablet 50 mg Comm uni TAKE 1 TAKE 1 tablet ty TABLET BY TABLET BY TAKE 1 [facility] MOUTH AT MOUTH AT TABLET BY l BEDTIME AND BEDTIME AND MOUTH AT Clinics IN MORNING IN MORNING BEDTIME AND IN MORNING amlodipine amlodipine No amlodipine [place] 5 mg tablet 5 mg tablet 5 mg C [facility] TAKE 1 TAKE 1 tablet ty TABLET BY TABLET BY TAKE 1 [facility] MOUTH EVERY MOUTH EVERY TABLET BY l DAY DAY MOUTH Clinics EVERY DAY atorvastati atorvastati No atorvastat [place] n 20 mg n 20 mg in 20 mg Commu ni tablet TAKE tablet TAKE tablet ty 1 TABLET BY 1 TABLET BY TAKE 1 Hospita MOUTH EVERY MOUTH EVERY TABLET BY l DAY FOR 90 DAY FOR 90 MOUTH Cl inics DAYS DAYS EVERY DAY FOR 90 DAYS BD [facility] 2nd BD [facility] 2nd No BD Kalee [place] Gen Pen Gen Pen 2nd Gen Commun i Needle 32 Needle 32 Pen Needle ty gauge x gauge x 32 gauge x [facility] " 1 " 1 " 1 l TIME A DAY TIME A DAY TIME A DAY Clinics ceftriaxone ceftriaxone No 500mg ceftriaxon [place] 500 mg 500 mg e 500 mg Commun[facility] solution solution solution ty for for for Hospita injection injection injection l Take 500 mg Take 500 mg Take 500 Clinics by by mg by injection injection injection route. pt route. pt route. pt tolerated tolerated tolerated well well well cholecalcif cholecalcif No cholecalci [place] ghada ghada ferol [facility] (vitamin (vitamin (vitamin ty D3) 1,250 D3) 1,250 D3) 1,250 Hospita mcg (50,000 mcg (50,000 mcg l unit) unit) (50,000 Clinics capsule capsule unit) TAKE 1 TAKE 1 capsule CAPSULE CAPSULE TAKE 1 EVERY 15 EVERY 15 CAPSULE DAYS DAYS EVERY 15 DAYS clonazepam clonazepam No clonazepam [place] 0.5 mg 0.5 mg 0.5 mg [facility] tablet TAKE tablet TAKE tablet ty 1 TABLET BY 1 TABLET BY TAKE 1 [facility]ospita MOUTH EVERY MOUTH EVERY TABLET BY l DAY DAY MOUTH Clinics NEEDED NEEDED EVERY DAY NEEDED cyclobenzap cyclobenzap No cyclobenza [place] rine 10 mg rine 10 mg rita 10 Communi tablet tablet mg tablet ty Hospita l Clinics diclofenac diclofenac No diclofenac [place] sodium 75 sodium 75 sodium 75 Communi [...] DAY EVERY DAY famotidine famotidine No famotidine [place] 20 mg 20 mg 20 mg [facility]i tablet Take tablet Take tablet ty 1 tablet 1 tablet Take 1 Hospi ta daily by daily by tablet l mouth mouth daily by Clinics mouth ferrous ferrous No ferrous [place] sulfate 220 sulfate 220 sulfate [facility] mg (44 mg mg (44 mg 220 mg (44 ty iron)/5 mL iron)/5 mL mg iron)/5 Hospita oral elixir oral elixir mL oral l Take 5 ML Take 5 ML elixir Cli nics BID by BID by Take 5 ML mouth mouth BID by mouth glipizide glipizide No glipizide [place] ER 2.5 mg ER 2.5 mg ER 2.5 mg Communi tablet, tablet, tablet, ty extended extended extended [facility] release 24 release 24 release 24 l hr hr hr Clinics Humatrope 6 Humatrope 6 No Humatrope [place] mg (18 mg (18 6 mg (18 Communi unit) unit) unit) ty injection injection injection [facility] cartridge cartridge cartridge l INJECT INJECT INJECT Clinics 0.3MG 0.3MG 0.3MG SUBCUTANEOU SUBCUTANEOU SUBCUTANEO SLY EVERY SLY EVERY USLY EVERY DAY DAY DAY hydrocortis hydrocortis No hydrocorti [place] one 20 mg one 20 mg sone 20 mg [facility] tablet TAKE tablet TAKE tablet ty 2 TABLETS 2 TABLETS TAKE 2 [facility] BY MOUTH BY MOUTH TABLETS BY l EVERY DAY EVERY DAY MOUTH Clin ics IN THE IN THE EVERY DAY MORNING MORNING IN THE MORNING isosorbide isosorbide No isosorbide [place] mononitrate mononitrate mononitrat Communi ER 30 mg ER 30 mg e ER 30 mg t y tablet,exte tablet,exte tablet,ext [facility]ospita nded nded ended l release 24 release 24 release 24 Clinics hr TAKE 1 hr TAKE 1 hr TAKE 1 TABLET BY TABLET BY TABLET BY MOUTH EVERY MOUTH EVERY MOUTH DAY DAY EVERY DAY Klor-Con 10 Klor-Con 10 No Klor-Con [place] mEq mEq 10 mEq [facility] tablet,exte tablet,exte tablet,ext ty nded nded ended [facility]ospita release release release l TAKE 1 TAKE 1 TAKE 1 Clinics TABLET BY TABLET BY TABLET BY MOUTH EVERY MOUTH EVERY MOUTH DAY WITH DAY WITH EVERY DAY FOOD FOOD WITH FOOD levothyroxi levothyroxi No levothyrox [place] ne 112 mcg ne 112 mcg ine 112 Communi tablet 1 tablet 1 mcg tablet t y TAB DAILY TAB DAILY 1 TAB [facility] 1/2 HR. 1/2 HR. DAILY 1/2 l BEFORE BEFORE HR. BEFORE Clini cs BREAKFAST BREAKFAST BREAKFAST WITH WATER WITH WATER WITH WATER lidocaine lidocaine No 2.1mL lidocaine [place] (PF) 10 (PF) 10 (PF) 10 Commun i mg/mL (1 %) mg/mL (1 %) mg/mL (1 ty injection injection %) Hospi ta solution solution injection l Take 2.1 mL Take 2.1 mL solution Clinics by by Take 2.1 injection injection mL by route. route. injection route. lidocaine lidocaine No 2.1mL Q1D lidocaine [place] (PF) 50 (PF) 50 (PF) 50 Commun [...] mL lidocaine 5 lidocaine 5 No lidocaine [place] % topical % topical 5 % Commu ni patch patch [facility] liothyronin liothyronin No liothyroni [place] e 5 mcg e 5 mcg ne 5 mcg Commu ni tablet tablet tablet ty Hosp[facility] l Clinics mirtazapine mirtazapine No mirtazapin [place] 15 mg 15 mg e 15 mg Communi tablet TAKE tablet TAKE tablet ty 1 TABLET BY 1 TABLET BY TAKE 1 Hospita MOUTH MOUTH TABLET BY l EVERYDAY AT EVERYDAY AT MOUTH Clinics BEDTIME BEDTIME EVERYDAY AT BEDTIME nitroglycer nitroglycer No 1 nitroglyce [place] in 0.4 mg in 0.4 mg rin 0.4 mg Communi sublingual sublingual sublingual ty tablet tablet tablet [facility] [address] 1 l tablet as tablet as tablet as Clinics needed by needed by needed by sublingual sublingual sublingual route. route. route. omeprazole omeprazole No omeprazole [place] 20 mg 20 mg 20 mg Communi [...] ty gauge TEST gauge TEST gauge TEST [facility] TWICE A DAY TWICE A DAY TWICE [...] DAY l Clinics pantoprazol pantoprazol No pantoprazo [place] e 40 mg e 40 mg le 40 mg Commu ni tablet,indira tablet,indira tablet,del ty yed release yed release ayed H [facility] Take 1 Take 1 release l tablet BID tablet BID Take 1 C linics by mouth by mouth tablet BID by mouth phenazopyri phenazopyri No phenazopyr [place] dine 200 mg dine 200 mg idine 200 Communi tablet TAKE tablet TAKE mg tablet ty 1 TABLET BY 1 TABLET BY TAKE 1 Hospita MOUTH THREE MOUTH THREE TABLET BY l TIMES A DAY TIMES A DAY MOUTH Clinics FOR 3 DAYS FOR 3 DAYS THREE TIMES A DAY FOR 3 DAYS potassium potassium No potassium [place] chloride ER chloride ER chloride Communi 20 mEq 20 mEq ER 20 mEq ty tablet,exte tablet,exte tablet,ext Hospita nded nded ended l release(par release(par release(pa Clinics t/cryst) t/cryst) rt/cryst) TAKE 1 TAKE 1 TAKE 1 TABLET BY TABLET BY TABLET BY MOUTH EVERY MOUTH EVERY MOUTH DAY DAY EVERY DAY Santyl 250 Santyl 250 No Santyl 250 [place] unit/gram unit/gram unit/gram [facility] topical topical topical ty ointment ointment ointment [facility] APPLY A APPLY A APPLY A l DIONY [facility] THICK THICK THICK AMOUNT TO AMOUNT TO AMOUNT TO WOUND 3 WOUND 3 WOUND 3 TIMES A TIMES A TIMES A WEEK WEEK WEEK sotalol 160 sotalol 160 No sotalol [place] mg tablet mg tablet 160 mg Com raz TAKE 1 TAKE 1 tablet ty TABLET BY TABLET BY TAKE 1 [facility] MOUTH EVERY MOUTH EVERY TABLET BY l DAY DAY MOUTH Clinics EVERY DAY sulfamethox sulfamethox No sulfametho [place] azole 800 azole 800 xazole 800 Communi [...] Suprax 200 No 5mL BID Suprax 200 [place] mg/5 mL mg/5 mL mg/5 mL Commun i oral oral oral ty suspension suspension suspension Hosp[facility] Take 5 mL Take 5 mL Take 5 mL l twice a day twice a day twice a Clinics by oral by oral day by route for 7 route for 7 oral route days. days. for 7 days. tramadol 50 tramadol 50 No tramadol [place] mg tablet mg tablet 50 mg Comm uni TAKE 1 TAKE 1 tablet ty TABLET BY TABLET BY TAKE 1 [facility] MOUTH AT MOUTH AT TABLET BY l BEDTIME AND BEDTIME AND MOUTH AT Clinics IN MORNING IN MORNING BEDTIME AND IN MORNING amlodipine amlodipine No amlodipine [place] 5 mg tablet 5 mg tablet 5 mg [facility] TAKE 1 TAKE 1 tablet ty TABLET BY TABLET BY TAKE 1 [facility] MOUTH EVERY MOUTH EVERY TABLET BY l DAY DAY MOUTH Clinics EVERY DAY atorvastati atorvastati No atorvastat [place] n 20 mg n 20 mg in 20 mg Commu ni tablet TAKE tablet TAKE tablet ty 1 TABLET BY 1 TABLET BY TAKE 1 Hospita MOUTH EVERY MOUTH EVERY TABLET BY l DAY FOR 90 DAY FOR 90 MOUTH Cl inics DAYS DAYS EVERY DAY FOR 90 DAYS BD [facility] 2nd BD [facility] 2nd No BD Kalee [place] Gen Pen Gen Pen 2nd Gen Commun i Needle 32 Needle 32 Pen Needle ty gauge x gauge x 32 gauge x [facility] 32" 1 32" 1 32" 1 l TIME A DAY TIME A DAY TIME A DAY Clinics ceftriaxone ceftriaxone No 500mg ceftriaxon [place] 500 mg 500 mg e 500 mg Communi solution solution solution ty for for for Hospita injection injection injection l Take 500 mg Take 500 mg Take 500 Clinics by by mg by injection injection injection route. pt route. pt route. pt tolerated tolerated tolerated well well well cholecalcif cholecalcif No cholecalci [place] ghada ghada ferol Communi (vitamin (vitamin (vitamin ty D3) 1,250 D3) 1,250 D3) 1,250 Hospita mcg (50,000 mcg (50,000 mcg l unit) unit) (50,000 Clinics capsule capsule unit) TAKE 1 TAKE 1 capsule CAPSULE CAPSULE TAKE 1 EVERY 15 EVERY 15 CAPSULE DAYS DAYS EVERY 15 DAYS clonazepam clonazepam No clonazepam [place] 0.5 mg 0.5 mg 0.5 mg Communi tablet TAKE tablet TAKE tablet ty 1 TABLET BY 1 TABLET BY TAKE 1 Hospita MOUTH EVERY MOUTH EVERY TABLET BY l DAY DAY MOUTH Clinics NEEDED NEEDED EVERY DAY NEEDED cyclobenzap cyclobenzap No cyclobenza [place] rine 10 mg rine 10 mg rita 10 Communi tablet tablet mg tablet ty Hosp[facility] l Clinics diclofenac diclofenac No diclofenac [place] sodium 75 sodium 75 sodium 75 Communi [...] DAY EVERY DAY famotidine famotidine No famotidine [place] 20 mg 20 mg 20 mg Communi tablet Take tablet Take tablet ty 1 tablet 1 tablet Take 1 Hospi ta daily by daily by tablet l mouth mouth daily by Clinics mouth ferrous ferrous No ferrous [place] sulfate 220 sulfate 220 sulfate Communi mg (44 mg mg (44 mg 220 mg (44 ty iron)/5 mL iron)/5 mL mg iron)/5 Hospita oral elixir oral elixir mL oral l Take 5 ML Take 5 ML elixir Cli nics BID by BID by Take 5 ML mouth mouth BID by mouth glipizide glipizide No glipizide [place] ER 2.5 mg ER 2.5 mg ER 2.5 mg Communi tablet, tablet, tablet, ty extended extended extended [facility] release 24 release 24 release 24 l hr hr hr Clinics Humatrope 6 Humatrope 6 No Humatrope [place] mg (18 mg (18 6 mg (18 Communi unit) unit) unit) ty injection [facility] cartridge cartridge cartridge l INJECT INJECT INJECT Clinics 0.3MG 0.3MG 0.3MG SUBCUTANEOU SUBCUTANEOU SUBCUTANEO SLY EVERY SLY EVERY USLY EVERY DAY DAY DAY hydrocortis hydrocortis No hydrocorti [place] one 20 mg one 20 mg sone 20 mg Communi tablet TAKE tablet TAKE tablet ty 2 TABLETS 2 TABLETS TAKE 2 Hos [facility] BY MOUTH BY MOUTH TABLETS BY l EVERY DAY EVERY DAY MOUTH Clin ics IN THE IN THE EVERY DAY MORNING MORNING IN THE MORNING isosorbide isosorbide No isosorbide [place] mononitrate mononitrate mononitrat Communi ER 30 mg ER 30 mg e ER 30 mg t y tablet,exte tablet,exte tablet,ext [facility]osp[facility] nded nded ended l release 24 release 24 release 24 Clinics hr TAKE 1 hr TAKE 1 hr TAKE 1 TABLET BY TABLET BY TABLET BY MOUTH EVERY MOUTH EVERY MOUTH DAY DAY EVERY DAY Immunizations Ordered Immunization Filled Immunization Date Status Commen Source Name Name influenza, influenza, 2022-05-05 Completed [place] high-dose, high-dose, 00:00:[address] [facility] Pneumococcal Pneumococcal 2022-05-05 Completed [place] conjugate PCV20, conjugate PCV20, 00:00:00 [facility] polysaccharide polysaccharide [facility] [id number] conjugate, [id number] conjugate, Clinics adjuvant, PF adjuvant, PF influenza, influenza, 2022-05-05 Completed [place] high-dose, high-dose, 00:00:[address] [facility] Pneumococcal Pneumococcal 2022-05-05 Completed [place] conjugate PCV20, conjugate PCV20, 00:00:00 [facility] polysaccharide polysaccharide [facility] [id number] conjugate, [id number] conjugate, Clinics adjuvant, PF adjuvant, PF influenza, influenza, 2022-05-05 Completed [place] high-dose, high-dose, 00:00:[address] [facility] Pneumococcal Pneumococcal 2022-05-05 Completed [place] conjugate PCV20, conjugate PCV20, 00:00:00 [facility] polysaccharide polysaccharide [facility] [id number] conjugate, [id number] conjugate, Clinics adjuvant, PF adjuvant, PF influenza, influenza, 2022-05-05 Completed [place] high-dose, high-dose, 00:00:[address] [facility] Pneumococcal Pneumococcal 2022-05-05 Completed [place] conjugate PCV20, conjugate PCV20, 00:00:00 [facility] polysaccharide polysaccharide [facility] [id number] conjugate, [id number] conjugate, Clinics adjuvant, PF adjuvant, PF influenza, influenza, 2022-05-05 Completed [place] high-dose, high-dose, 00:00:[address] [facility] Pneumococcal Pneumococcal 2022-05-05 Completed [place] conjugate PCV20, conjugate PCV20, 00:00:00 [facility] polysaccharide polysaccharide [facility] [id number] conjugate, [id number] conjugate, Clinics adjuvant, PF adjuvant, PF influenza, influenza, 2022-05-05 Completed [place] high-dose, high-dose, 00:00:[address] [facility] Pneumococcal Pneumococcal 2022-05-05 Completed [place] conjugate PCV20, conjugate PCV20, 00:00:00 [facility] polysaccharide polysaccharide [facility] [id number] conjugate, [id number] conjugate, Clinics adjuvant, PF adjuvant, PF influenza, influenza, 2022-05-05 Completed [place] high-dose, high-dose, 00:00:[address] [facility] Pneumococcal Pneumococcal 2022-05-05 Completed [place] conjugate PCV20, conjugate PCV20, 00:00:00 [facility] polysaccharide polysaccharide [facility] [id number] conjugate, [id number] conjugate, Clinics adjuvant, PF adjuvant, PF influenza, influenza, 2022-05-05 Completed [place] high-dose, high-dose, 00:00:[address] [facility] Pneumococcal Pneumococcal 2022-05-05 Completed [place] conjugate PCV20, conjugate PCV20, 00:00:00 [facility] polysaccharide polysaccharide [facility] [id number] conjugate, [id number] conjugate, Clinics adjuvant, PF adjuvant, PF influenza, influenza, 2022-05-05 Completed [place] high-dose, high-dose, 00:00:[address] [facility] Pneumococcal Pneumococcal 2022-05-05 Completed [place] conjugate PCV20, conjugate PCV20, 00:00:00 [facility] polysaccharide polysaccharide Hospit al [id number] conjugate, [id number] conjugate, Clinics adjuvant, PF adjuvant, PF COVID-19, mRNA, COVID-19, mRNA, 2022-03-19 Completed [place] LNP-S, PF, 30 LNP-S, PF, 30 00:00:00 Communit y mcg/0.3 mL dose, mcg/0.3 mL dose, [facility] everette-sucrose everette-sucrose [facility] COVID-19, mRNA, COVID-19, mRNA, 2022-03-19 Completed [place] [facility] LNP-S, PF, 30 LNP-S, PF, 30 00:00:00 [facility] mcg/0.3 mL dose, mcg/0.3 mL dose, [facility] ([facility]) ([facility]) COVID-19, mRNA, COVID-19, mRNA, 2022-03-19 Completed [place] LNP-S, PF, 30 LNP-S, PF, 30 00:00:00 [facility] y mcg/0.3 mL dose, mcg/0.3 mL dose, [facility] ([facility]) COVID-19, mRNA, COVID-19, mRNA, 2022-03-19 Completed [place] [facility] LNP-S, PF, 30 LNP-S, PF, 30 00:00:00 [facility] y mcg/0.3 mL dose, mcg/0.3 mL dose, [facility]rose [facility] ([facility]) ([facility]) COVID-19, mRNA, COVID-19, mRNA, 2022-03-19 Completed [place] LNP-S, PF, 30 LNP-S, PF, 30 00:00:00 [facility] y mcg/0.3 mL dose, mcg/0.3 mL dose, [facility]rose [facility] ([facility]) ([facility]) COVID-19, mRNA, COVID-19, mRNA, 2022-03-19 Completed [place] LNP-S, PF, 30 LNP-S, PF, 30 00:00:00 Communit y mcg/0.3 mL dose, mcg/0.3 mL dose, [facility]rose [facility] ([facility]) ([facility]) COVID-19, mRNA, COVID-19, mRNA, 2022-03-19 Completed [place] LNP-S, PF, 30 LNP-S, PF, 30 00:00:00 Communit y mcg/0.3 mL dose, mcg/0.3 mL dose, [facility]rose [facility] ([facility]) COVID-19, mRNA, COVID-19, mRNA, 2022-03-19 Completed [place] LNP-S, PF, 30 LNP-S, PF, 30 00:00:00 [facility]it y mcg/0.3 mL dose, mcg/0.3 mL dose, [facility]rose [facility] ([facility]) ([facility]) COVID-19, mRNA, COVID-19, mRNA, 2022-03-19 Completed [place] [facility] LNP-S, PF, 30 LNP-S, PF, 30 00:00:00 [facility] y mcg/0.3 mL dose, mcg/0.3 mL dose, [facility]sucrose [facility] ([facility]) ([facility]) COVID-19, mRNA, COVID-19, mRNA, 2021-09-01 Completed [place] LNP-S, PF, 30 LNP-S, PF, 30 00:00:00 [facility] y mcg/0.3 mL dose mcg/0.3 mL dose [facility]osp [facility] ([facility]) Clinics COVID-19, mRNA, COVID-19, mRNA, 2021-09-01 Completed [place] LNP-S, PF, 30 LNP-S, PF, 30 00:00:00 [facility] y mcg/0.3 mL dose mcg/0.3 mL dose [facility] ([facility]) Clinics COVID-19, mRNA, COVID-19, mRNA, 2021-09-01 Completed [place] LNP-S, PF, 30 LNP-S, PF, 30 00:00:00 [facility] y mcg/0.3 mL dose mcg/0.3 mL dose [facility] ([facility] Clinics COVID-19, mRNA, COVID-19, mRNA, 2021-09-01 Completed [place] LNP-S, PF, 30 LNP-S, PF, 30 00:00:00 [facility]it y mcg/0.3 mL dose mcg/0.3 mL dose [facility]osp [facility] ([facility] ([facility]) Clinics COVID-19, mRNA, COVID-19, mRNA, 2021-09-01 Completed [place] LNP-S, PF, 30 LNP-S, PF, 30 00:00:00 Communit y mcg/0.3 mL dose mcg/0.3 mL dose Hosp [facility] ([facility]) ([facility]) Clinics COVID-19, mRNA, COVID-19, mRNA, 2021-09-01 Completed [place] [facility] LNP-S, PF, 30 LNP-S, PF, 30 00:00:00 [facility] y mcg/0.3 mL dose mcg/0.3 mL dose [facility]osp [facility] ([facility]) ([facility]) Clinics COVID-19, mRNA, COVID-19, mRNA, 2021-09-01 Completed [place] LNP-S, PF, 30 LNP-S, PF, 30 00:00:00 [facility] y mcg/0.3 mL dose mcg/0.3 mL dose [facility]osp [facility] ([facility]) ([facility]) Clinics COVID-19, mRNA, COVID-19, mRNA, 2021-09-01 Completed [place] [facility] LNP-S, PF, 30 LNP-S, PF, 30 00:00:00 [facility]it y mcg/0.3 mL dose mcg/0.3 mL dose [facility]osp [facility] ([facility]) ([facility]) Clinics COVID-19, mRNA, COVID-19, mRNA, 2021-09-01 Completed [facility] LNP-S, PF, 30 LNP-S, PF, 30 00:00:00 [facility]it y mcg/0.3 mL dose mcg/0.3 mL dose [facility]osp [facility] ([facility]) ([facility]) Clinics COVID-19 COVID-19 2020-11-02 Completed [place] (SARS-COV-2) (SARS-COV-2) 00:00:00 Community vaccine, unspecified vaccine, Hosp [facility] unspecified Clinics COVID-19 COVID-19 2020-11-02 Completed [place] (SARS-COV-2) (SARS-COV-2) 00:00:00 Community vaccine, unspecified vaccine, [facility] unspecified Clinics COVID-19 COVID-19 2020-11-02 Completed [place] (SARS-COV-2) (SARS-COV-2) 00:00:00 Community vaccine, unspecified vaccine, [facility] unspecified Clinics COVID-19 COVID-19 2020-11-02 Completed [place] (SARS-COV-2) (SARS-COV-2) 00:00:00 Community vaccine, unspecified vaccine, [facility] unspecified Clinics COVID-19 COVID-19 2020-11-02 Completed [place] (SARS-COV-2) (SARS-COV-2) 00:00:00 Community vaccine, unspecified vaccine, [facility] unspecified Clinics COVID-19 COVID-19 2020-11-02 Completed [place] (SARS-COV-2) (SARS-COV-2) 00:00:00 Community vaccine, unspecified vaccine, [facility] unspecified Clinics COVID-19 COVID-19 2020-11-02 Completed [place] (SARS-COV-2) (SARS-COV-2) 00:00:00 Community vaccine, unspecified vaccine, [facility] unspecified Clinics COVID-19 COVID-19 2020-11-02 Completed [place] (SARS-COV-2) (SARS-COV-2) 00:00:00 Community vaccine, unspecified vaccine, [facility]osp [facility] unspecified Clinics COVID-19 COVID-19 2020-11-02 Completed [place] (SARS-COV-2) (SARS-COV-2) 00:00:00 Community vaccine, unspecified vaccine, [facility]osp [facility] unspecified Clinics COVID-19 COVID-19 2020-11-02 Completed [place] (SARS-COV-2) (SARS-COV-2) 00:00:00 Community vaccine, unspecified vaccine, [facility]osp [facility] unspecified Clinics COVID-19 COVID-19 2020-11-02 Completed [place] (SARS-COV-2) (SARS-COV-2) 00:00:00 Community vaccine, unspecified vaccine, [facility]osp [facility] unspecified Clinics COVID-19 COVID-19 2020-11-02 Completed [place] (SARS-COV-2) (SARS-COV-2) 00:00:00 Community vaccine, unspecified vaccine, Hosp [facility] unspecified Clinics COVID-19 COVID-19 2020-11-02 Completed [place] (SARS-COV-2) (SARS-COV-2) 00:00:00 Community vaccine, unspecified vaccine, [facility]osp [facility] unspecified Clinics COVID-19 COVID-19 2020-11-02 Completed [place] (SARS-COV-2) (SARS-COV-2) 00:00:00 Community vaccine, unspecified vaccine, [facility]osp [facility] unspecified Clinics COVID-19 COVID-19 2020-11-02 Completed [place] (SARS-COV-2) (SARS-COV-2) 00:00:00 Community vaccine, unspecified vaccine, Hosp ital unspecified Clinics COVID-19 COVID-19 2020-11-02 Completed [place] (SARS-COV-2) (SARS-COV-2) 00:00:00 Community vaccine, unspecified vaccine, Hosp [facility] unspecified Clinics COVID-19 COVID-19 2020-11-02 Completed [place] (SARS-COV-2) (SARS-COV-2) 00:00:00 Community vaccine, unspecified vaccine, [facility]osp [facility] unspecified Clinics COVID-19 COVID-19 2020-11-02 Completed [place] (SARS-COV-2) (SARS-COV-2) 00:00:00 Community vaccine, unspecified vaccine, Hosp [facility] unspecified Clinics COVID-19 COVID-19 2020-11-02 Completed [place] (SARS-COV-2) (SARS-COV-2) 00:00:00 Community vaccine, unspecified vaccine, [facility]osp [facility] unspecified Clinics COVID-19 COVID-19 2020-11-02 Completed [place] (SARS-COV-2) (SARS-COV-2) 00:00:00 Community vaccine, unspecified vaccine, [facility]osp [facility] unspecified Clinics COVID-19 COVID-19 2020-11-02 Completed [place] (SARS-COV-2) (SARS-COV-2) 00:00:00 Community vaccine, unspecified vaccine, [facility] unspecified Clinics COVID-19 COVID-19 2020-11-02 Completed [place] (SARS-COV-2) (SARS-COV-2) 00:00:00 Community vaccine, unspecified vaccine, [facility]osp [facility] unspecified Clinics SARS-COV-2 COVID-2020-10-25 Completed [facility] of MODERNA VACCINE 00:00:00 [facility] SARS-COV-2 COVID-19 2020-10-25 Completed [facility]-19 2020-09-27 Completed [place] (SARS-COV-2) (SARS-COV-2) 00:00:00 Community vaccine, unspecified vaccine, [facility]osp [facility] unspecified Clinics COVID-19 COVID-19 2020-09-27 Completed [place] (SARS-COV-2) (SARS-COV-2) 00:00:00 Community vaccine, unspecified vaccine, [facility]osp [facility] unspecified Clinics COVID-19 COVID-19 2020-09-27 Completed [place] (SARS-COV-2) (SARS-COV-2) 00:00:00 Community vaccine, unspecified vaccine, [facility]osp [facility] unspecified Clinics COVID-19 COVID-19 2020-09-27 Completed [place] (SARS-COV-2) (SARS-COV-2) 00:00:00 Community vaccine, unspecified vaccine, [facility]osp [facility] unspecified Clinics COVID-19 COVID-19 2020-09-27 Completed [place] (SARS-COV-2) (SARS-COV-2) 00:00:00 Community vaccine, unspecified vaccine, [facility] unspecified Clinics COVID-19 COVID-19 2020-09-27 Completed [place] (SARS-COV-2) (SARS-COV-2) 00:00:00 Community vaccine, unspecified vaccine, [facility]osp [facility] unspecified Clinics COVID-19 COVID-19 2020-09-27 Completed [place] (SARS-COV-2) (SARS-COV-2) 00:00:00 Community vaccine, unspecified vaccine, [facility] unspecified Clinics COVID-19 COVID-19 2020-09-27 Completed [place] (SARS-COV-2) (SARS-COV-2) 00:00:00 Community vaccine, unspecified vaccine, [facility] unspecified Clinics COVID-19 COVID-19 2020-09-27 Completed [place] (SARS-COV-2) (SARS-COV-2) 00:00:00 Community vaccine, unspecified vaccine, [facility]osp [facility] unspecified Clinics COVID-19 COVID-19 2020-09-27 Completed [place] (SARS-COV-2) (SARS-COV-2) 00:00:00 Community vaccine, unspecified vaccine, [facility] unspecified Clinics COVID-19 COVID-19 2020-09-27 Completed [place] (SARS-COV-2) (SARS-COV-2) 00:00:00 Community vaccine, unspecified vaccine, [facility]osp [facility] unspecified Clinics COVID-19 COVID-19 2020-09-27 Completed [place] (SARS-COV-2) (SARS-COV-2) 00:00:00 Community vaccine, unspecified vaccine, [facility]osp [facility] unspecified Clinics COVID-19 COVID-19 2020-09-27 Completed [place] (SARS-COV-2) (SARS-COV-2) 00:00:00 Community vaccine, unspecified vaccine, Hosp [facility] unspecified Clinics COVID-19 COVID-19 2020-09-27 Completed [place] (SARS-COV-2) (SARS-COV-2) 00:00:00 Community vaccine, unspecified vaccine, [facility]osp [facility] unspecified Clinics COVID-19 COVID-19 2020-09-27 Completed [place] (SARS-COV-2) (SARS-COV-2) 00:00:00 Community vaccine, unspecified vaccine, [facility]osp [facility] unspecified Clinics COVID-19 COVID-19 2020-09-27 Completed [place] (SARS-COV-2) (SARS-COV-2) 00:00:00 Community vaccine, unspecified vaccine, [facility]osp [facility] unspecified Clinics COVID-19 COVID-19 2020-09-27 Completed [place] (SARS-COV-2) (SARS-COV-2) 00:00:00 Community vaccine, unspecified vaccine, [facility] unspecified Clinics COVID-19 COVID-19 2020-09-27 Completed [place] (SARS-COV-2) (SARS-COV-2) 00:00:00 Community vaccine, unspecified vaccine, [facility]osp [facility] unspecified Clinics COVID-19 COVID-19 2020-09-27 Completed [place] (SARS-COV-2) (SARS-COV-2) 00:00:00 Community vaccine, unspecified vaccine, [facility]osp [facility] unspecified Clinics COVID-19 COVID-19 2020-09-27 Completed [place] (SARS-COV-2) (SARS-COV-2) 00:00:00 Community vaccine, unspecified vaccine, [facility]osp [facility] unspecified Clinics COVID-19 COVID-19 2020-09-27 Completed [place] (SARS-COV-2) (SARS-COV-2) 00:00:00 Community vaccine, unspecified vaccine, Hosp [facility] unspecified Clinics COVID-19 COVID-19 2020-09-27 Completed [place] (SARS-COV-2) (SARS-COV-2) 00:00:00 Community vaccine, unspecified vaccine, Hosp [facility] unspecified Clinics SARS-COV-2 COVID-19 2020-09-27 Completed [facility] of MODERNA VACCINE 00:00:00 [facility] SARS-COV-2 COVID-19 2020-09-27 Completed Un[facility] rs[facility] of MODERNA VACCINE 00:00:00 [facility] influenza, influenza, 2020-05-07 Completed [place] injectable, injectable, 00:00:[address] [facility] influenza, influenza, 2020-05-07 Completed [place] injectable, injectable, 00:00:[address] [facility] influenza, influenza, 2020-05-07 Completed [place] injectable, injectable, 00:00:[address] [facility] influenza, influenza, 2020-05-07 Completed [place] injectable, injectable, 00:00:[address] [facility] influenza, influenza, 2020-05-07 Completed [place] injectable, injectable, 00:00:[address] [facility] influenza, influenza, 2020-05-07 Completed [place] injectable, injectable, 00:00:[address] [facility] influenza, influenza, 2020-05-07 Completed [place] injectable, injectable, 00:00:[address] [facility] influenza, influenza, 2020-05-07 Completed [place] injectable, injectable, 00:00:[address] [facility] influenza, influenza, 2020-05-07 Completed [place] injectable, injectable, 00:00:[address] [facility] influenza, influenza, 2020-05-07 Completed [place] injectable, injectable, 00:00:[address] [facility] influenza, influenza, 2020-05-07 Completed [place] injectable, injectable, 00:00:[address] [facility] influenza, influenza, 2020-05-07 Completed [place] injectable, injectable, 00:00:[address] [facility] influenza, influenza, 2020-05-07 Completed [place] injectable, injectable, 00:00:[address] [facility] influenza, influenza, 2020-05-07 Completed [place] injectable, injectable, 00:00:[address] [facility] influenza, influenza, 2020-05-07 Completed [place] injectable, injectable, 00:00:[address] [facility] influenza, influenza, 2020-05-07 Completed [place] injectable, injectable, 00:00:[address] [facility] influenza, influenza, 2020-05-07 Completed [place] injectable, injectable, 00:00:[address] [facility] influenza, influenza, 2020-05-07 Completed [place] injectable, injectable, 00:00:[address] [facility] influenza, influenza, 2020-05-07 Completed [place] injectable, injectable, 00:00:[address] [facility] influenza, influenza, 2020-05-07 Completed [place] injectable, injectable, 00:00:[address] [facility] influenza, influenza, 2020-05-07 Completed [place] injectable, injectable, 00:00:[address] [facility] influenza, influenza, 2020-05-07 Completed [place] injectable, injectable, 00:00:[address] [facility] influenza, influenza, 2020-05-07 Completed [place] injectable, injectable, 00:00:[address] [facility] influenza, influenza, 2020-05-07 Completed [place] injectable, injectable, 00:00:[address] [facility] influenza, influenza, 2020-05-07 Completed [place] injectable, injectable, 00:00:[address] [facility] influenza, influenza, 2020-05-07 Completed [place] injectable, injectable, 00:00:[address] [facility] influenza, influenza, 2020-05-07 Completed [place] injectable, injectable, 00:00:[address] [facility] influenza, influenza, 2020-05-07 Completed [place] injectable, injectable, 00:00:[address] [facility] influenza, influenza, 2020-05-07 Completed [place] injectable, injectable, 00:00:[address] [facility] influenza, influenza, 2020-05-07 Completed [place] injectable, injectable, 00:00:[address] [facility] influenza, influenza, 2020-05-07 Completed [place] injectable, injectable, 00:00:[address] [facility] influenza, influenza, 2020-05-07 Completed [place] injectable, injectable, 00:00:[address] [facility] influenza, influenza, 2020-05-07 Completed [place] injectable, injectable, 00:00:[address] [facility] influenza, influenza, 2020-05-07 Completed [place] injectable, injectable, 00:00:[address] [facility] Influenza Virus 2020-05-07 Completed [facility] Vaccine Quad IM 00:00:00 [facility] Multi-dose 6+ [place] [facility] Influenza Virus 2020-05-07 Completed [facility] of Vaccine Quad IM 00:00:[address] [facility] Multi-dose 6+ [place] [facility] influenza, influenza, 2019-07-10 Completed [place] injectable, injectable, 00:00:[address] [facility] influenza, influenza, 2019-07-10 Completed [place] injectable, injectable, 00:00:[address] [facility] influenza, influenza, 2019-07-10 Completed [place] injectable, injectable, 00:00:[address] [facility] influenza, influenza, 2019-07-10 Completed [place] injectable, injectable, 00:00:[address] [facility] influenza, influenza, 2019-07-10 Completed [place] injectable, injectable, 00:00:[address] [facility] influenza, influenza, 2019-07-10 Completed [place] injectable, injectable, 00:00:[address] [facility] influenza, influenza, 2019-07-10 Completed [place] injectable, injectable, 00:00:[address] [facility] influenza, influenza, 2019-07-10 Completed [place] injectable, injectable, 00:00:[address] [facility] influenza, influenza, 2019-07-10 Completed [place] injectable, injectable, 00:00:[address] [facility] influenza, influenza, 2019-07-10 Completed [place] injectable, injectable, 00:00:[address] [facility] influenza, influenza, 2019-07-10 Completed [place] injectable, injectable, 00:00:[address] [facility] influenza, influenza, 2019-07-10 Completed [place] injectable, injectable, 00:00:[address] [facility] influenza, influenza, 2019-07-10 Completed [place] injectable, injectable, 00:00:[address] [facility] influenza, influenza, 2019-07-10 Completed [place] injectable, injectable, 00:00:[address] [facility] influenza, influenza, 2019-07-10 Completed [place] injectable, injectable, 00:00:[address] [facility] influenza, influenza, 2019-07-10 Completed [place] injectable, injectable, 00:00:[address] [facility] influenza, influenza, 2019-07-10 Completed [place] injectable, injectable, 00:00:[address] [facility] influenza, influenza, 2019-07-10 Completed [place] injectable, injectable, 00:00:[address] [facility] influenza, influenza, 2019-07-10 Completed [place] injectable, injectable, 00:00:[address] [facility] influenza, influenza, 2019-07-10 Completed [place] injectable, injectable, 00:00:[address] [facility] influenza, influenza, 2019-07-10 Completed [place] injectable, injectable, 00:00:[address] [facility] influenza, influenza, 2019-07-10 Completed [place] injectable, injectable, 00:00:[address] [facility] influenza, influenza, 2019-07-10 Completed [place] injectable, injectable, 00:00:[address] [facility] influenza, influenza, 2019-07-10 Completed [place] injectable, injectable, 00:00:[address] [facility] influenza, influenza, 2019-07-10 Completed [place] injectable, injectable, 00:00:[address] [facility] influenza, influenza, 2019-07-10 Completed [place] injectable, injectable, 00:00:[address] [facility] influenza, influenza, 2019-07-10 Completed [place] injectable, injectable, 00:00:[address] [facility] influenza, influenza, 2019-07-10 Completed [place] injectable, injectable, 00:00:[address] [facility] influenza, influenza, 2019-07-10 Completed [place] injectable, injectable, 00:00:[address] [facility] influenza, influenza, 2019-07-10 Completed [place] injectable, injectable, 00:00:[address] [facility] influenza, influenza, 2019-07-10 Completed [place] injectable, injectable, 00:00:[address] [facility] influenza, influenza, 2019-07-10 Completed [place] injectable, injectable, 00:00:[address] [facility] influenza, influenza, 2019-07-10 Completed [place] injectable, injectable, 00:00:[address] [facility] influenza, influenza, 2019-07-10 Completed [place] injectable, injectable, 00:00:[address] [facility] Influenza Virus 2019-07-10 Completed [facility] Vaccine Quad IM 00:[facility]00 [facility] [facility] ica Multi-dose 6+ [place] Branch Influenza Virus 2019-07-10 Completed [facility] Quad IM 00:00:00 [facility] ica Multi-dose 6+ MO Branch influenza, influenza, Unknown Completed [place] high-dose, high-dose, [facility] Pneumococcal Pneumococcal Unknown Completed [place] conjugate PCV20, conjugate PCV20, Co mmunity polysaccharide polysaccharide Hospit al [id number] conjugate, [id number] conjugate, Clinics adjuvant, PF adjuvant, PF COVID-19, mRNA, COVID-19, mRNA, Unknown Completed [place] LNP-S, PF, 30 LNP-S, PF, 30 Communit y mcg/0.3 mL dose, mcg/0.3 mL dose, Ho spital everette-sucrose everette-sucrose Clinics ([employer]) ([employer]) COVID-19, mRNA, COVID-19, mRNA, Unknown Completed [place] LNP-S, PF, 30 LNP-S, PF, 30 Communit y mcg/0.3 mL dose mcg/0.3 mL dose Hosp ital ([employer]) ([facility]) Clinics COVID-19 COVID-19 Unknown Completed [place] (SARS-COV-2) (SARS-COV-2) Community vaccine, unspecified vaccine, Hosp ital unspecified Clinics COVID-19 COVID-19 Unknown Completed [place] (SARS-COV-2) (SARS-COV-2) Community vaccine, unspecified vaccine, Hosp ital unspecified Clinics influenza, influenza, Unknown Completed [place] injectable, injectable, [facility] quadrivalent quadrivalent Hospital Clinics influenza, influenza, Unknown Completed [place] injectable, injectable, [facility] Vital Signs Vital Name Observation Time Observation Value Comments Source Height 2023-05-30 00:00:00 64 [in_i] [facility] s BMI (Body Mass 2023-05-30 00:00:00 24.7 kg/m2 [facility]) [facility] s BP Systolic 2023-05-30 00:00:00 114 mm[Hg] [facility] s BP Diastolic 2023-05-30 00:00:00 72 mm[Hg] [facility] s Body Weight 2023-05-30 00:00:00 2304 [oz_av] [facility] s BP Systolic 2023-05-02 00:00:00 138 mm[Hg] [facility] s Height 2023-05-02 00:00:00 64 [in_i] [facility] s BP Diastolic 2023-05-02 00:00:00 70 mm[Hg] [facility] s BMI (Body Mass 2023-05-02 00:00:00 24.9 kg/m2 [facility]) [facility] s Body Weight 2023-05-02 00:00:00 2320 [oz_av] [facility] s BP Diastolic 2023-04-01 00:00:00 68 mm[Hg] [facility] Height 2023-04-01 00:00:00 64 [in_i] [facility] s BP Systolic 2023-04-01 00:00:00 132 mm[Hg] [facility] s BP Diastolic 2023-03-29 00:00:00 68 mm[Hg] [facility] Height 2023-03-29 00:00:00 64 [in_i] [facility] s BP Systolic 2023-03-29 00:00:00 120 mm[Hg] [facility] BP Diastolic 2023-03-18 00:00:00 72 mm[Hg] [facility] Height 2023-03-18 00:00:00 64 [in_i] [facility] BP Systolic 2023-03-18 00:00:00 124 mm[Hg] [facility] s BP Diastolic 2023-03-10 00:00:00 74 mm[Hg] [facility] s Height 2023-03-10 00:00:00 64 [in_i] [facility] s BP Systolic 2023-03-10 00:00:00 120 mm[Hg] [facility] BP Diastolic 2023-02-25 00:00:00 70 mm[Hg] [facility] Height 2023-02-25 00:00:00 64 [in_i] [facility] s BMI (Body Mass 2023-02-25 00:00:00 24.4 kg/m2 [facility]) [facility] s BP Systolic 2023-02-25 00:00:00 112 mm[Hg] [facility] s Body Weight 2023-02-25 00:00:00 2272 [oz_av] [facility] Height 2022-12-06 00:00:00 64 [in_i] [facility] s BP Diastolic 2022-11-23 00:00:00 77 mm[Hg] [facility] Height 2022-11-23 00:00:00 64 [in_i] [facility] s BMI (Body Mass 2022-11-23 00:00:00 29.9 kg/m2 [facility]) [facility] s BP Systolic 2022-11-23 00:00:00 134 mm[Hg] [facility] s Body Weight 2022-11-23 00:00:00 2784 [oz_av] [facility] s BP Diastolic 2022-09-14 00:00:00 72 mm[Hg] [facility] s Height 2022-09-14 00:00:00 64 [in_i] [facility] s BP Systolic 2022-09-14 00:00:00 130 mm[Hg] [facility] s BP Diastolic 2022-02-16 00:00:00 70 mm[Hg] [facility] s Height 2022-02-16 00:00:00 64 [in_i] [facility] s BMI (Body Mass 2022-02-16 00:00:00 29.5 kg/m2 [facility] s BP Systolic 2022-02-16 00:00:00 108 mm[Hg] [facility] s Body Weight 2022-02-16 00:00:00 2752 [oz_av] [facility] s Height 2021-11-17 00:00:00 64 [in_i] [facility] s Height 2021-11-10 00:00:00 64 [in_i] [facility] s Height 2021-11-09 00:00:00 64 [in_i] [facility] s Height 2021-11-06 00:00:00 64 [in_i] [facility] Height 2021-11-03 00:00:00 64 [in_i] [facility] s Height 2021-11-02 00:00:00 64 [in_i] [facility] s BP Diastolic 2021-10-27 00:00:00 70 mm[Hg] [facility] s Height 2021-10-27 00:00:00 64 [in_i] [facility] s BP Systolic 2021-10-27 00:00:00 138 mm[Hg] [facility] Height 2021-10-01 00:00:00 64 [in_i] [facility] BP Diastolic 2021-09-01 00:00:00 70 mm[Hg] [facility] Height 2021-09-01 00:00:00 64 [in_i] [facility] BMI (Body Mass 2021-09-01 00:00:00 28.3 kg/m2 [facility]) [facility] BP Systolic 2021-09-01 00:00:00 124 mm[Hg] [facility] s Body Weight 2021-09-01 00:00:00 2640 [oz_av] [facility] BP Diastolic 2021-07-02 00:00:00 74 mm[Hg] [facility] Height 2021-07-02 00:00:00 64 [in_i] [facility] BMI (Body Mass 2021-07-02 00:00:00 29.4 kg/m2 [facility]) [facility] s BP Systolic 2021-07-02 00:00:00 120 mm[Hg] [facility] s Body Weight 2021-07-02 00:00:00 2736 [oz_av] [facility] BP Diastolic 2021-04-13 00:00:00 70 mm[Hg] [facility] Height 2021-04-13 00:00:00 64 [in_i] [facility] BMI (Body Mass 2021-04-13 00:00:00 28.3 kg/m2 [facility]) [facility] s BP Systolic 2021-04-13 00:00:00 122 mm[Hg] [facility] Body Weight 2021-04-13 00:00:00 2640 [oz_av] [facility] BP Diastolic 2021-04-06 00:00:00 84 mm[Hg] [facility] Height 2021-04-06 00:00:00 64 [in_i] [facility] BMI (Body Mass 2021-04-06 00:00:00 28.5 kg/m2 [facility]) [facility] s BP Systolic 2021-04-06 00:00:00 138 mm[Hg] [facility] Body Weight 2021-04-06 00:00:00 2656 [oz_av] [facility] BP Diastolic 2021-03-20 00:00:00 88 mm[Hg] [facility] Height 2021-03-20 00:00:00 64 [in_i] [facility] s BMI (Body Mass 2021-03-20 00:00:00 28.3 kg/m2 [facility]) [facility] s BP Systolic 2021-03-20 00:00:00 144 mm[Hg] [facility] s Body Weight 2021-03-20 00:00:00 2640 [oz_av] [facility] s BP Diastolic 2020-12-19 00:00:00 80 mm[Hg] [facility] Height 2020-12-19 00:00:00 64 [in_i] [facility] s BMI (Body Mass 2020-12-19 00:00:00 28.5 kg/m2 [facility]) [facility] s BP Systolic 2020-12-19 00:00:00 138 mm[Hg] [facility] Body Weight 2020-12-19 00:00:00 2656 [oz_av] [facility] BP Diastolic 2020-11-17 00:00:00 78 mm[Hg] [facility] Height 2020-11-17 00:00:00 64 [in_i] [facility] s BP Systolic 2020-11-17 00:00:00 140 mm[Hg] [facility] BP Diastolic 2020-11-10 00:00:00 72 mm[Hg] [facility] Height 2020-11-10 00:00:00 64 [in_i] [facility] BMI (Body Mass 2020-11-10 00:00:00 29.2 kg/m2 [facility]) [facility] s BP Systolic 2020-11-10 00:00:00 110 mm[Hg] [facility] Body Weight 2020-11-10 00:00:00 2720 [oz_av] [facility] s BP Diastolic 2020-10-27 00:00:00 70 mm[Hg] [facility] Height 2020-10-27 00:00:00 64 [in_i] [facility] s BMI (Body Mass 2020-10-27 00:00:00 31.9 kg/m2 [facility]) [facility] s BP Systolic 2020-10-27 00:00:00 122 mm[Hg] [facility] s Body Weight 2020-10-27 00:00:00 2976 [oz_av] [facility] s BP Diastolic 2020-10-17 00:00:00 74 mm[Hg] [facility] Height 2020-10-17 00:00:00 64 [in_i] [facility] BMI (Body Mass 2020-10-17 00:00:00 28.8 kg/m2 [facility]) [facility] s BP Systolic 2020-10-17 00:00:00 144 mm[Hg] [facility] s Body Weight 2020-10-17 00:00:00 2688 [oz_av] [facility] Height 2020-09-23 00:00:00 64 [in_i] [facility] s BP Diastolic 2020-09-08 00:00:00 82 mm[Hg] [facility] Height 2020-09-08 00:00:00 64 [in_i] [facility] s BMI (Body Mass 2020-09-08 00:00:00 29.7 kg/m2 [facility]) [facility] s BP Systolic 2020-09-08 00:00:00 158 mm[Hg] [facility] s Body Weight 2020-09-08 00:00:00 2768 [oz_av] [facility] s Body height 2022-05-17 15:02:00 162.6 cm [facility] Body weight 2022-05-17 15:02:00 77.565 kg [facility] BMI 2022-05-17 15:02:00 29.35 kg/m2 [facility] Systolic blood 2021-03-13 20:52:00 132 mm[Hg] Univer sity pressure [facility] Diastolic blood 2021-03-13 20:52:00 69 mm[facility]Hg] [facility] 2021-03-13 20:52:00 63 /min [facility] Body temperature 2021-03-13 20:52:00 36.94 Noemy [facility] Respiratory rate 2021-03-13 20:52:00 18 /min [facility] Oxygen saturation in 2021-03-13 20:52:00 97 /min [facility] Arterial blood by [facility] Pulse oximetry Branch Body height 2021-03-11 07:30:00 162.6 cm [facility] Body weight 2021-03-11 07:30:00 76 kg bed scale [facility] BMI 2021-03-11 07:30:00 28.76 kg/m2 [facility] Procedures Procedure Date / Time Performing Clinician Source Performed MAMMO, diagnostic, 2023-05-17 00:00:00 Van [facility] Clin ics bone density 2023-05-16 00:00:00 [facility] Cholecystectomy 2022-12-14 00:00:00 [facility] ETHMOIDECTOMY, TOTAL, VIA 2022-07-05 16:30:00 Marysol Nguyen [facility] EXTRANASAL APPROACH Hip Pin for Fixation of 2022-05-18 00:00:00 [facility] Epiphysis [facility] MRI BRAIN W WO CONTRAST 2022-05-17 16:05:47 Marysol Nguyen [facility] AUTHORIZATION FOR RELEASE 2021-12-30 05:01:00 Doctor Unassigned, [facility] [place] [facility] MAMMO, diagnostic, 2021-10-26 00:00:00 [facility] mmunity digital, [facility] Hospital Clin ics Tibial Arthroscopy/surgery 2021-09-22 00:00:00 [facility] EXTERNAL PROVIDER RECORDS 2021-03-24 05:01:00 Doctor Unassigned, [facility] POCT GLUCOSE (AUTOMATED) 2021-03-13 16:51:[address] [facility] POCT GLUCOSE (AUTOMATED) 2021-03-13 13:05:[address] [facility] CBC WITHOUT DIFF 2021-03-13 11:24:00 Pamela Terry [facility] BASIC METABOLIC PANEL (NA, 2021-03-13 11:24:00 Pamela Terry [facility] K, CL, CO2, GLUCOSE, BUN, Medica l Branch CREATININE, CA) POCT GLUCOSE (AUTOMATED) 2021-03-13 05:07:[address] [facility] POCT GLUCOSE (AUTOMATED) 2021-03-12 23:47:[address] [facility] CBC WITHOUT DIFF 2021-03-12 23:30:00 Pamela Terry [facility] POCT GLUCOSE (AUTOMATED) 2021-03-12 20:23:[address] [facility] POCT GLUCOSE (AUTOMATED) 2021-03-12 19:28:[address] [facility] IR IVC FILTER INSERTION 2021-03-12 18:43:[address] [facility] POCT GLUCOSE (AUTOMATED) 2021-03-12 13:12:00 Kely, Mukaila [facility] BASIC METABOLIC PANEL (NA, 2021-03-12 10:25:00 Pamela Terry [facility] K, CL, CO2, GLUCOSE, BUN, Medica l Branch CREATININE, CA) CBC WITH DIFF 2021-03-12 10:25:00 Harrison [facility] MAGNESIUM 2021-03-12 10:25:00 Harrison [facility] ACTIVATED PARTIAL THRMPLAS 2021-03-12 05:01:00 Alvaro Shields [facility] POCT GLUCOSE (AUTOMATED) 2021-03-12 01:11:00 Josy Syed [facility] POCT GLUCOSE (AUTOMATED) 2021-03-11 21:16:00 Josy Syed [facility] BASIC METABOLIC PANEL (NA, 2021-03-11 20:47:00 Pamela Terry [facility] K, CL, CO2, GLUCOSE, BUN, Medica l Branch CREATININE, CA) ACTIVATED PARTIAL THRMPLAS 2021-03-11 18:53:00 Alvaro Shields [facility] US LOWER EXTREMITY VEIN 2021-03-11 17:18:10 Alvaro Shields [facility] WITH COMPRESSION BILATERAL Medic al Branch (ONLY FOR RULE OUT DVT) CT ABDOMEN PELVIS W 2021-03-11 17:16:28 Alvaro Shields [facility] CONTRAST Medical Branch POCT GLUCOSE (AUTOMATED) 2021-03-11 16:50:00 Josy Syed [facility] POCT GLUCOSE (AUTOMATED) 2021-03-11 14:31:00 Josy Syed [facility] COVID-19 (ID NOW RAPID 2021-03-11 13:18:00 Alvaro Shields [facility] TESTING) Medical Branch LAB ONLY COVID 2021-03-11 13:18:00 Alvaro Shields [facility] CBC WITH DIFF 2021-03-11 13:17:00 Alvaro Shields [facility] FREE T4 2021-03-11 13:17:00 Alvaro Shields [facility] PROTHROMBIN TIME / INR 2021-03-11 13:17:00 [facility] 2021-03-11 13:17:00 Alvaro Shields [facility] COMP. METABOLIC PANEL 2021-03-11 13:15:00 Alvaro Shields [facility] ([id number]) Medical Branch MAGNESIUM 2021-03-11 13:15:00 Alvaro Shields [facility] FREE T3 2021-03-11 13:15:00 Alvaro Shields [facility] FERRITIN SERUM 2021-03-11 13:15:00 Alvrao Shields [facility] ACTIVATED PARTIAL THRMPLAS 2021-03-11 10:38:00 Alvaro Shields [facility] HOSPITAL ADMISSION 2021-03-11 05:01:00 Doctor Unassigned, [facility] [place] [facility] DEXA 2020-12-19 00:00:00 [facility] MRI, lumbar spine, w/o 2020-10-27 00:00:00 [facility] XR, lumbar spine 2020-10-17 00:00:00 [facility] Hypophysectomy [facility] Plan of Care Planned Activity Planned Date Details Comments Source Future Scheduled Test 2023-07-09 65+ PNEUMOCOCCAL [facility] 10:17:41 VACCINE (1 - PCV) [code = 65+ PNEUMOCOCCAL VACCINE (1 - PCV)] Future Scheduled Test 2023-07-09 COVID-19 VACCINE (4 - [facility] 10:17:41 season) [code = COVID-19 VACCINE (4 - season)] Future Scheduled Test 2023-07-09 INFLUENZA VACCINE [facility] 10:17:41 (#1) [code = INFLUENZA VACCINE (#1)] Future Scheduled Test 2023-07-09 SHINGLES VACCINES ([address] [place] [address] 10:17:41 of 2) [code = SHINGLES VACCINES (1 of 2)] Diagnostic Test 2023-05-02 urinalysis, dipstick [facility] Pending 00:00:00 [code = urinalysis, Hospital Clinics dipstick] Future Scheduled Test 2023-04-07 SHINGLES VACCINES ([address] [place] [address] 08:24:00 of 2) [code = SHINGLES VACCINES (1 of 2)] Future Scheduled Test 2023-04-07 65+ PNEUMOCOCCAL [facility] 08:24:00 VACCINE (1 - PCV) [code = 65+ PNEUMOCOCCAL VACCINE (1 - PCV)] Future Scheduled Test 2023-04-07 COVID-19 VACCINE ([address] [place] [address] 08:24:00 Moderna series) [code = COVID-19 VACCINE (4 - Moderna series)] Future Scheduled Test 2023-04-07 INFLUENZA VACCINE [facility] 08:24:00 [code = INFLUENZA VACCINE] Future Scheduled Test 2023-01-07 SHINGLES VACCINES (1 [facility] 16:34:29 of 2) [code = SHINGLES VACCINES (1 of 2)] Future Scheduled Test 2023-01-07 65+ PNEUMOCOCCAL [facility] 16:34:29 VACCINE (1 - PCV) [code = 65+ PNEUMOCOCCAL VACCINE (1 - PCV)] Future Scheduled Test 2023-01-07 COVID-19 VACCINE ([address] [place] [address] 16:34:29 Booster for Moderna series) [code = COVID-19 VACCINE (4 - Booster for Moderna series)] Future Scheduled Test 2023-01-07 INFLUENZA VACCINE [facility] 16:34:29 [code = INFLUENZA VACCINE] Future Scheduled Test 2022-05-17 HEPATITIS B VACCINES [facility] 10:30:12 (1 of 3 - 3-dose series) [code = HEPATITIS B VACCINES (1 of 3 - 3-dose series)] Future Scheduled Test 2022-05-17 SHINGLES VACCINES (1 [facility] 10:30:12 of 2) [code = SHINGLES VACCINES (1 of 2)] Future Scheduled Test 2022-05-17 65+ PNEUMOCOCCAL [facility] 10:30:12 VACCINE (1 - PCV) [code = 65+ PNEUMOCOCCAL VACCINE (1 - PCV)] Future Scheduled Test 2022-05-17 COVID-19 VACCINE ([address] [place] [address] 10:30:12 Booster for Moderna series) [code = COVID-19 VACCINE (4 - Booster for Moderna series)] Future Scheduled Test 2022-05-17 INFLUENZA VACCINE [facility] 10:30:12 [code = INFLUENZA VACCINE] Future Scheduled [...] 00:00:00 (1 of 1 - Medical Center [id number] PCV13) [code = PNEUMOCOCCAL 65+ YRS (1 of 1 - [id number] PCV13)] Future Scheduled Test 2003 PNEUMOCOCCAL 65+ YRS [facility] 00:00:00 (1 of 1 - Medical Center [id number] PCV13) [code = PNEUMOCOCCAL 65+ YRS (1 of 1 - [id number] PCV13)] Future Scheduled Test 1988 SHINGLES VACCINES [...] Medical Mike ter VACCINE (1)] Future Appointment 2023-08-02 Lam Card, [address] [facility] 08:30:00 Srinivasa; [address], [place] [address] [facility]ters Start End Encounter Admission Attending Care Care Encounter Source Date/Time Date/Time Type Type Clinicians Facility Department ID 2023-01-19 Outpatient [facility] [id number] Common 09:13:00 [id number] 2022-10-14 Outpatient [facility] [id number] [place] 09:18:02 [id number] [facility] 2022-10-06 Outpatient [facility] [id number] [place] 14:35:41 [id number] [facility] 2022-10-01 Outpatient 3 COLLEEN BAKER [facility] [id number] [facility] 15:41:42 AVIS [id number] [place] 2022-10-01 Outpatient 3 [id number] ENCPL CRD [id number] [facility] 12:55:40 0127 [facility] [place] 2022-09-30 Outpatient 3 COLLEEN BAKER [facility] [id number] [facility] 13:27:29 AVIS [id number] [facility] [place] 2022-09-30 Outpatient 3 [id number] ENCPL REF [id number] [facility] 06:52:54 0126 [facility] [place] 2022-09-29 Outpatient 3 [id number] ENCPL REF [id number] [facility] 15:07:23 0125 [facility] [place] 2022-09-27 Outpatient [facility] [id number] [place] 12:32:54 [id number] [facility] 2022-06-04 [facility] [id number] Common 08:13:00 [facility] 2022-05-31 [facility] [id number] Common 11:13:01 [facility] 2022-05-24 [facility] [id number] Common 11:47:00 [facility] 2021-10-05 Inpatient CHEYENNE Aguayo [id number] [facility] 11:30:[address] 2021-09-30 Outpatient Courtney [facility] [id number] Common 11:17:12 Chel [id number] [facility] 2021-09-30 Outpatient MARKEL Durán [facility] [id number] Common 11:13:55 Dany [id number] [facility] 2021-03-11 Inpatient U KELY, [facility] [id number] Univers 02:03:00 JOSY curtis [facility] 2023-05-30 2023-05-30 Outpatient ERICKSON_R [facility] [id number] [place] 00:00:00 00:00:00 925 Commun i ty [facility] 2023-05-30 2023-05-30 D[facility] [place] 00:00:00 00:00:00 [facility] DO: [address] [facility], HOSPITAL [place], [place] CLINIC, [address] LEEANNA , Ph. 2023-05-02 2023-05-02 Dany [facility] [place] [id number] [place] 00:00:00 00:00:00 [facility] DO: [address] a [facility], [place], [place] CLINIC, [address] LEEANNA , Ph. 2023-04-21 2023-04-21 Outpatient ERICKSON_R [facility] [id number] [place] 00:00:00 00:00:00 828 Commun i ty [facility] 2023-04-01 2023-04-01 Outpatient ERICKSON_R [facility] [id number] [place] 00:00:00 00:00:00 728 Commun i ty [facility] 2023-04-01 2023-04-01 Dany [facility] [place] [id number] [place] 00:00:00 00:00:00 [facility] Hospital - ty DO: [address] a [facility] G, HOSPITAL Clinic s [place], [place] CL[place]IC, [address] ERICKSON , Ph. 2023-03-29 2023-03-29 [facility] [place] 00:00:00 00:00:00 [facility] - ty DO: [address] Hospit a [facility], HOSPITAL Clinic [place], [place] CL[place], [address] ERICKSON , Ph. [phone] 2023-03-18 2023-03-18 [facility] [place] [id number] [place] 00:00:00 00:00:00 [facility] Hospital - ty DO: [address] Hospit a [facility], HOSPITAL Clinic [place] CL[place], [address] LEEANNA , Ph. [phone] 2023-03-10 2023-03-10 [facility] [place] 00:00:00 00:00:00 [facility] COMPANION CAREGIVER-C: [address] Hospital - ty [address] [facility] [place], [address] ERICKSON , Ph. 2023-02-25 2023-02-25 [facility] [place] [id number] [place] 00:00:00 00:00:00 [facility] Hospital - ty DO: [address] Hospit a [facility], HOSPITAL Clinic s [place] CL[place], [address] ERICKSON , Ph. [phone] 2023-02-17 2023-02-17 DAGOBERTO Rangel 6414 [id number] [place] 11:30:00 11:53:38 Visit Barry FOSTER [id number] Health [id number] 2023-02-17 2023-02-17 Outpatient [facility] [facility] [id number] [place] 11:15:00 11:15:00 [facility] 2023-02-10 2023-02-10 Outpatient PACK, [facility] [id number] [place] 11:30:00 11:30:00 [facility] 2023-02-10 2023-02-10 Outpatient [facility] [id number] [place] 11:30:00 11:30:00 [facility] 2023-01-11 2023-01-11 Outpatient ERICKSON_R [facility] [id number] [place] 00:00:00 00:00:00 623 [facility] 2023-01-11 2023-01-11 Outpatient ERICKSON_R [facility] [id number] [place] 00:00:00 00:00:00 626 [facility] 2023-01-11 2023-01-11 Outpatient ERICKSON_R [facility] [id number] [place] 00:00:00 00:00:00 706 [facility] 2023-01-11 2023-01-11 Outpatient ERICKSON_R [facility] [id number] [place] 00:00:00 00:00:00 714 [facility] 2023-01-11 2023-01-11 Outpatient ERICKSON_R [facility] [id number] [place] 00:00:00 00:00:00 725 [facility] 2022-12-30 2022-12-[address] [facility] 6414 1.2.840.114 [id number] [place] 10:30:00 11:31:18 Visit Barry HERRING 350.1.13.58 Health 9.2.7.2.686 [id number] 1 2022-12-30 2022-12-30 Outpatient [facility] [id number] [place] 10:30:00 10:30:00 [facility] 2022-12-29 2022-12-29 Outpatient ERICKSON_R [facility] [id number] [place] 00:00:00 00:00:00 426 [facility] 2022-12-06 2022-12-06 D[facility] [place] 00:00:00 00:00:00 [facility] DO: [address] a [facility], [place], [place] CL[place]IC, [address] LEEANNA , Ph. [phone] 2022-12-02 2022-12-02 Outpatient [facility] [id number] [place] 11:15:00 11:15:00 Health 2022-12-02 2022-12-02 Office DAGOBERTO Pack 6414 1.2.840.114 [id number] [place] 10:30:00 11:13:22 Visit Barry HARRINGTONNIN 350.1.13.58 [facility] 9.2.7.2.686 [id number] 1 2022-12-02 2022-12-02 Outpatient [facility] [id number] [place] 10:30:00 10:30:00 [facility] 2022-11-23 2022-11-23 [facility] [place] 00:00:00 00:00:00 [facility] DO: [address] Hospit [facility], [place], [place] CL[place]IC, [address] LEEANNA , Ph. 2022-11-11 2022-11-11 Outpatient ERICKSON_R [facility] [id number] [place] 00:00:00 00:00:00 321 [facility] 2022-11-11 2022-11-11 Outpatient ERICKSON_R [facility] [id number] [place] 00:00:00 00:00:00 323 [facility] 2022-11-11 2022-11-11 Outpatient ERICKSON_R [facility] [id number] [place] 00:00:00 00:00:00 403 [facility] 2022-11-04 2022-11-04 Office PackDAGOBERTO 6414 1.2.840.114 [id number] [place] 10:15:00 10:40:[address] 350.1.13.58 Health 9.2.7.2.686 [id number] 1 2022-11-04 2022-11-04 Outpatient [facility] [id number] [place] 10:15:00 10:15:00 Health 2022-10-26 2022-10-26 Outpatient ERICKSON_R [facility] [id number] [place] 00:00:00 00:00:00 221 [facility] 2022-10-21 2022-10-21 Office DAGOBERTO [place] 6414 1.2.979.827 [id number] [place] 10:00:00 11:05:15 Visit Ree HERRING 350.1.13.58 Health 9.2.7.2.686 [id number] 1 2022-10-21 2022-10-21 Outpatient [facility] [id number] [place] 10:00:00 10:00:00 Health 2022-10-07 2022-10-21 Inpatient 3 COLLEEN BAKER [facility] [id number] -[id number] [place] 21:37:00 09:00:00 [place] [id number] [facility] [place] 2022-10-14 2022-10-14 Office JonnDAGOBERTO 6414 1.2.572.925 [id number] [place] 09:30:00 09:58:24 Visit Ree HERRING 350.1.13.58 Health 9.2.7.2.686 [id number] 1 2022-09-23 2022-10-[address] [facility] [address] [facility] 04:10:00 16:50:00 SHIFA 2022-09-24 2022-09-24 Outpatient ERICKSON_R [facility] [id number] [place] 00:00:00 00:00:00 120 [facility] 2022-09-22 2022-09-[address] [facility] BUSTER [address] [facility] 00:00:00 23:59:00 ALANNA 2022-09-14 2022-09-14 Outpatient ERICKSON_R [facility] [id number] [place] 00:00:00 00:00:00 110 [facility] 2022-09-14 2022-09-14 Outpatient ERICKSON_R [facility] [id number] [place] 00:00:00 00:00:00 112 Commun [facility] Clinics 2022-09-14 2022-09-14 Outpatient ERICKSON_R [facility] 8298 - [place] 00:00:00 00:00:00 113 Commun i ty Hospita [facility] 2022-09-14 2022-09-14 Dany [facility] [place] 00:00:00 00:00:00 [facility] DO: [address] a [facility] [address], HOSPITAL Clinic [place], [place], [address] LEEANNA , Ph. 2022-05-17 2022-05-17 Outpatient [facility] [id number] [place] 00:00:00 00:00:[address] [place] 2022-04-15 2022-04-15 Travel 1.2.840.1 1.2.397.307 [id number] Methodi 00:00:00 00:00:[address] 3.430.2.7 0.2.7.3.698 Ho spita .3.841909 084.8 l .8 2022-04-12 2022-04-12 Outpatient ERICKSON_R [facility] [id number] [place] 00:00:00 00:00:00 808 Commun i ty [facility] 2022-04-07 2022-04-07 Travel 1.2.840.1 1.2.728.676 [id number] Methodi 00:00:00 00:00:[address] 3.430.2.7 0.2.7.3.698 Ho spita .3.602946 084.8 l .8 2022-02-16 2022-02-16 Outpatient ERICKSON_R [facility] [id number] [place] 02:37:00 02:37:00 614 Commun i ty Hospita l [facility] 2022-02-16 2022-02-16 Dany [facility] [place] 14 [place] 00:00:00 00:00:00 [facility] ty DO: [address] Hospit a [facility], [facility], [address] LEEANNA , Ph. 2022-02-16 2022-02-16 Outpatient Leeanna, [facility] [id number] 00:00:00 00:00:00 Dany x88-44ll-w [place] [id number] 2021-12-30 2021-12-30 Orders Doctor MIRA 1.2.840.114 [id number] Univers 00:00:00 00:00:00 Only Unassigned, TAMARA 350.1.13.10 ity of [place] [facility] 4.2.7.2.686 Dominic as [id number] [place] [address] Branch 2021-11-27 2021-11-27 Outpatient ERICKSON_R [facility] [id number] [place] 02:40:00 02:40:00 325 Commun i ty Hospita [facility] 2021-11-17 2021-11-17 Outpatient ERICKSON_R [facility] 8298 - [place] 04:12:00 04:12:00 315 Commun i ty Hospita l [facility] 2021-11-17 2021-11-17 Dany [facility] [place] 00:00:00 00:00:00 [facility] ty DO: [address] [facility], [address] LEEANNA , Ph. 2021-11-17 2021-11-17 Outpatient Durán, [facility] [id number] 00:00:00 00:00:00 Dany 49c-11ec-a Juanpablo [id number] 2021-11-10 2021-11-10 Outpatient ERICKSON_R [facility] 8298 - [place] 12:26:00 12:26:00 308 Commun i ty Hospita [facility] Clinics 2021-11-10 2021-11-10 [facility] [place] 08 [place] 00:00:00 00:00:00 Juanpablo [facility] DO: [address] Hospit a [facility] [address], HOSPITAL Clinic [place], [place] CL[place], [address] LEEANNA , Ph. 2021-11-10 2021-11-10 Outpatient Leeanna, [facility] [id number] 00:00:00 00:00:00 Dany y41-74hg-3 Juanpablo [id number] 2021-11-09 2021-11-09 Outpatient ERICKSON_R [facility] 8298 - [place] 12:10:00 12:10:00 307 Commun i ty [facility] Clinics 2021-11-09 2021-11-09 Outpatient Leeanna, [facility] [id number] ce2-9 00:00:00 00:00:00 Dany e38-00gx-b Juanpablo [id number] 2021-11-09 2021-11-09 Outpatient Leeanna, [facility] [id number] 00:00:00 00:00:00 Dany t4z-07gl-5 Juanpablo [id number] 2021-11-09 2021-11-09 Outpatient Leeanna [facility] [id number] [id number] 00:00:00 00:00:00 Dany n5i-08ws-2 Juanpablo [id number] 2021-11-09 2021-11-09 Dany [facility] [place] 00:00:00 00:00:00 [facility] - ty DO: [address] a [facility], H[place]PITAL [place], [place] CL[place]IC, [address] LEEANNA , Ph. [phone] 2021-11-06 2021-11-06 Outpatient ERICKSON_R [facility] 8298 - [place] 12:37:00 12:37:00 304 Commun i ty Hospita l [facility] 2021-11-06 2021-11-06 Outpatient Leeanna [facility] [id number] 00:00:00 00:00:00 Dany be1-11ecJuan Miguela Juanpablo [id number] 2021-11-06 2021-11-06 Dany [facility] [place] 00:00:00 00:00:00 [facility] DO: [address] a [facility], [place], [place], [address] LEEANNA , Ph. 2021-11-05 2021-11-05 Outpatient ERICKSON_R [facility] [id number] [place] 03:35:00 03:35:00 303 Commun i ty Hospita [facility] 2021-11-05 2021-11-05 Outpatient Leeanna [facility] [id number] 00:00:00 00:00:00 Dany w91-71zd-w Juanpablo [id number] 2021-11-05 2021-11-05 Dany [facility] [place] 00:00:00 00:00:00 [facility] DO: [address] a [facility], [place], [place], [address] LEEANNA , Ph. 2021-11-03 2021-11-03 Outpatient ERICKSON_R [facility] [id number] [place] 12:59:00 12:59:00 301 Commun i ty Hospita [facility] Clinics 2021-11-03 2021-11-03 Dany [facility] [place] 00:00:00 00:00:00 [facility] - ty DO: [address] a [facility], HOSPITAL Clinic [place], [place] CLINIC, [address] LEEANNA , Ph. [phone] 2021-11-03 2021-11-03 Outpatient Leeanna [facility] [id number] afc-9 00:00:00 00:00:00 Dany 989-11ec-b Juanpablo [id number] 2021-11-02 2021-11-02 Outpatient ERICKSON_R [facility] 8298 - [place] 03:40:00 03:40:00 228 Commun i ty Hospita [facility] Clinics 2021-11-02 2021-11-02 Dany [facility] [place] 00:00:00 00:00:00 [facility] - ty DO: [address] a [facility], [place], [place], [address] LEEANNA , Ph. [phone] 2021-11-02 2021-11-02 Outpatient Leeanna [facility] [id number] 00:00:00 00:00:00 Dany [id number]-5 Juanpablo [id number] 2021-10-27 2021-10-27 Outpatient ERICKSON_R [facility] 8298 - [place] 04:29:00 04:29:00 222 Commun i ty Hospita l Clinics 2021-10-27 2021-10-27 Dany [facility] [place] 00:00:00 00:00:00 [facility] - ty DO: [address] [facility] [place], [address] LEEANNA , Ph. 2021-10-27 2021-10-27 Outpatient Leeanna [facility] [id number] 00:00:00 00:00:00 Dany 425-11ec-b Juanpablo [id number] 2021-10-01 2021-10-01 Outpatient ERICKSON_R [facility] [id number] [place] 06:53:00 06:53:00 127 Commun i ty Hospita l [facility] 2021-10-01 2021-10-01 Dany [facility] [place] 00:00:00 00:00:00 [facility] - ty DO: [address] [facility] [place] [place], [address] LEEANNA , Ph. 2021-10-01 2021-10-01 Outpatient Leeanna [facility] [id number] 00:00:00 00:00:00 Dany fcc-11ec-9 Juanpablo [id number] 2021-09-01 2021-09-01 Outpatient ERICKSON_R [facility] [id number] [place] 10:43:00 10:43:00 228 Commun i ty Hospita l [facility] 2021-09-01 2021-09-01 Dany [facility] [place] [id number] [place] 00:00:00 00:00:00 [facility] ty DO: [address] [facility] [place] [place], [address] LEEANNA , Ph. 2021-09-01 2021-09-01 Outpatient Leeanna [facility] [id number] [id number] 00:00:00 00:00:00 Dany 071-11ec-9 Juanpablo [id number] 2021-07-02 2021-07-02 Outpatient ERICKSON_R [facility] 8298 - [place] 10:49:00 10:49:00 028 Commun i ty Hospita l Clinics 2021-07-02 2021-07-02 Outpatient Leeanna [facility] [id number] 00:00:00 00:00:00 Dany 7fd-11ec-a Juanpablo [id number] 2021-07-02 2021-07-02 Dany [facility] [place] 28 [place] 00:00:00 00:00:00 [facility] DO: [address] [facility] Hospit a [facility] [address], HOSPITAL Clinic [place], [place], [address] LEEANNA , Ph. [phone] 2021-06-23 2021-06-23 Outpatient ERICKSON_R [facility] 8298 - [place] 01:20:00 01:20:00 019 Commun i ty Hospita l Clinics 2021-05-19 2021-05-19 Outpatient ERICKSON_R [facility] 8298 - [place] 01:20:00 01:20:00 914 Commun i ty Hospita l Clinics 2021-05-05 2021-05-05 Lynne Nino 1.2.840.2 [id number] [facility] 00:00:00 00:00:00 Management 39074.1.1 i ty of 3.104.2.7 [place] .3.273118 Medica l .8 Branch 2021-04-28 2021-04-28 [facility] Jose Eduardo Valdovinos 1.2.840.5 [id number] [facility] 07:31:12 23:59:00 Dejah [facility] 02920.1.1 ity of 3.104.2.7 [place] .3.904771 Medica l .8 Branch 2021-04-13 2021-04-13 Outpatient ERICKSON_R [facility] [id number] [place] 11:47:00 11:47:00 809 Commun i ty Hospita l Clinics 2021-04-13 2021-04-13 Outpatient Leeanna [facility] [id number] 00:00:00 00:00:00 Dany 926-11eb-8 Juanpablo [id number] 2021-04-13 2021-04-13 Dany [facility] [place] 00:00:00 00:00:00 [facility] - ty DO: [address] [facility] [address] [place], [address] LEEANNA , Ph. [phone] 2021-04-07 2021-04-07 Outpatient ERICKSON_R [facility] [id number] [place] 12:33:00 12:33:00 803 Commun i ty Hospita l Clinics 2021-04-06 2021-04-06 Outpatient ERICKSON_R [facility] 8298 - [place] 04:34:00 04:34:00 802 Commun i ty Hospita l Clinics 2021-04-06 2021-04-06 Outpatient Leeanna [facility] [id number] [id number] 00:00:00 00:00:00 Dany [id number]-n Juanpablo [id number] 2021-04-06 2021-04-06 Dany [facility] [place] 00:00:00 00:00:00 [facility] - ty DO: [address] [facility] [address] [place], [address] LEEANNA , Ph. 2021-04-01 2021-04-01 Outpatient ERICKSON_R [facility] [id number] [place] 01:49:00 01:49:00 728 Commun i ty Hospita l Clinics 2021-03-24 2021-03-24 Orders Doctor 1.2.840.2 [id number] Univers 00:00:00 00:00:00 Only Unassigned, 25837.1.1 ity of [place] 3.104.2.7 [place] .3.139065 Medica l .8 Branch 2021-03-24 2021-03-24 Orders Doctor MIRA 1.2.840.114 [id number] 00:00:00 00:00:00 Only Unassigned, TAMARA 350.1.13.10 [place] [facility] 4.2.7.2.686 [id number] 009 2021-03-20 2021-03-20 Outpatient LEEANNA_R [facility] [id number] [place] 10:54:00 10:54:00 716 [facility] 2021-03-20 2021-03-20 Outpatient Leeanna [facility] [id number]-[id number] 00:00:00 00:00:00 Dany 643-11eb-b Juanpablo [id number] 2021-03-20 2021-03-20 [facility] [place] 16 [place] 00:00:00 00:00:00 [facility] DO: [address] a [facility] [address], HOSPITAL Clinic [place], [address] LEEANNA , Ph. [phone] 2021-03-18 2021-03-18 Telephone Harrison, .2.840.2 [id number] [facility] 00:00:00 00:00:00 Pamela 05243.1.1 ity of 3.104.2.7 [place] .3.711303 Medica l .8 Branch 2021-03-18 2021-03-18 Telephone Harrison, RUST 1.2.456.845 [id number] 00:00:00 00:00:00 Pamela PRIMARY 350.1.13.10 CARE 4.2.7.2.686 PAVILLION [id number] 2021-03-16 2021-03-16 Transition Lucero, 1.2.840.6 [id number] Univers 00:00:00 00:00:00 of Care Chelsey 87969.1.1 ity of 3.104.2.7 [place] .3.469045 Medica l .8 Branch 2021-03-16 2021-03-16 Transition Doyle Barker 1.2.840.114 [id number] 00:00:00 00:00:00 of Care Chelsey Del Angel 350.1.13.10 [place] 4.2.7.2.686 [id number] 2021-03-11 2021-03-13 [facility] 1.2.840.5 [id number] [facility] 02:03:00 17:36:00 Encounter Josy 72033.1.1 it y of 3.104.2.7 [place] .3.823803 Medica l .8 Hansen 2021-03-11 2021-03-13 [facility] 1.2.840.114 [id number] 02:03:00 17:36:00 Encounter Josy Mcdonald 350.1.13.10 [facility] 4.2.7.2.686 [id number] 100 2021-03-12 2021-03-12 Case Zach, 1.2.840.5 [id number] Univers 00:00:00 00:00:00 Management Avtar 74949.1.1 i ty of 3.104.2.7 [place] .3.755059 Medica l .8 Hansen 2021-03-12 2021-03-12 Case Zach MEHDIIT 1.2.579.869 [id number] 00:00:00 00:00:00 Management Avtar Glass [facility] 350.1.13.10 [facility] 4.2.7.2.686 [id number] 2021-02-25 2021-02-25 Outpatient LEEANNA_R [facility] [id number] [place] 01:36:00 01:36:00 623 Commun i ty Hospita l Clinics 2021-02-20 2021-02-20 Orders Doctor 1.2.840.5 [id number] Univers 00:00:00 00:00:00 Only Unassigned, 81561.1.1 ity of [place] 3.104.2.7 [place] .3.311312 Medica l .8 Hansen 2021-02-20 2021-02-20 Orders Doctor MIRA 1.2.840.114 [id number] 00:00:00 00:00:00 Only Unassigned, TAMARA 350.1.13.10 [place] [facility] 4.2.7.2.686 [id number] 2021-01-22 2021-01-22 Outpatient ERICKSON_R [facility] [id number] [place] 01:03:00 01:03:00 520 Commun i ty Hospita [facility] 2021-01-21 2021-01-21 Orders Doctor 1.2.840.8 [id number] Univers 00:00:00 00:00:00 Only Unassigned, 86018.1.1 ity of [place] 3.104.2.7 [place] .3.496879 Medica l .8 Hansen 2021-01-21 2021-01-21 Orders Doctor MIRA 1.2.840.114 [id number] 00:00:00 00:00:00 Only Unassigned, TAMARA 350.1.13.10 [place] [facility] 4.2.7.2.686 [id number] 009 2021-01-08 2021-01-08 Orders Doctor 1.2.840.3 [id number] Univers 00:00:00 00:00:00 Only Unassigned, 37868.1.1 ity of [place] 3.104.2.7 [place] .3.052030 Medica l .8 Hansen 2021-01-08 2021-01-08 Orders Doctor MIRA Monten[place]ro.2.840.114 [id number] 00:00:00 00:00:00 Only Unassigned, TAMARA 350.1.13.10 [place] [facility] 4.2.7.2.686 [id number] 009 2021-01-05 2021-01-05 Transition Kadeem, 1.2.840.7 [id number] Univers 00:00:00 00:00:00 of Care Todd Bates 73877.1.1 it y of 3.104.2.7 [place] .3.609641 Medica l .8 Branch 2021-01-05 2021-01-05 Transition Doyle Quan 1.2.840.114 [id number] 00:00:00 00:00:00 of Care Todd Bates Del Angel 350.1.13.10 [place] 4.2.7.2.686 [id number] 2020-12-21 2021-01-[address] [facility] [id number] Univers 05:34:00 18:49:00 RAINE ity of [facility] 2020-12-21 2021-01-02 [facility] Sherin 1.2.840.0 [id number] [facility] 05:34:00 18:49:00 Encounter Fabrizio Samuels 79899.1.1 ity of [facility] 3.104.2.7 [facility] .3.368204 [facility] . Branch 2020-12-21 2021-01-02 [facility] Latoya Sherin Pederson 1.2.8 40.114 [id number] 05:34:00 18:49:00 Encounter Fabrizio Samuels 350.1.13.10 [facility] 4.2.7.2.686 [facility] [place] [id number] 100 2020-12-27 2020-12-27 Anesthesia Jai Espinal 1.2.840 .7 [id number] Univers 15:47:00 16:43:00 Event Chase Madsen 73868.1.1 it y of 3.104.2.7 [place] .3.821437 Medica l .8 Branch 2020-12-27 2020-12-27 Surgery Merwat, 1.2.840.5 [id number] Univers 14:55:00 16:17:00 Felipe 27674.1.1 ity of [place] 3.104.2.7 [place] .3.778847 Medica l .8 Branch 2020-12-27 2020-12-27 Surgery Dacia 1.2.840.114 [id number] 14:55:00 16:17:00 Tamara 350.1.13.10 [facility] 4.2.7.2.686 [id number] 2020-12-22 2020-12-22 Anesthesia Jay, 1.2.840.4 [id number] Univers 12:32:00 13:04:00 Event Bela 86195.1.1 ity of 3.104.2.7 [place] .3.942358 Medica l .8 Branch 2020-12-22 2020-12-22 Surgery Sharma, 1.2.840.7 [id number] Univers 10:40:00 11:14:00 [place] 14650.1.1 ity of 3.104.2.7 [place] .3.019072 Medica l .8 Branch 2020-12-22 2020-12-22 Surgery [facility] 1.2.766.834 [id number] 10:40:00 11:14:00 ICAL 350.1.13.10 [place] [address].2.7.2.[address] [facility] [id number] 2020-12-21 2020-12-21 Orders Watson, 1.2.840.9 [id number] Univers 00:00:00 00:00:00 Only Aidan 70746.1.1 ity of 3.104.2.7 [place] .3.466529 Medica l .8 Hansen 2020-12-19 2020-12-19 Outpatient JASON [facility] [id number] [place] 11:02:00 11:02:00 416 [facility] 2020-12-19 2020-12-19 Outpatient Leeanna [facility] [id number] 00:00:00 00:00:00 Dany [id number] Juanpablo [id number] 2020-12-19 2020-12-19 Dany [facility] [place] [id number] [place] 00:00:00 00:00:00 [facility] - ty DO: [address] Hospit a [facility], [facility] [place], [place], [address] LEEANNA , Ph. [phone] 2020-12-18 2020-12-18 Outpatient ERICKSON_R [facility] [id number] - [place] 01:01:00 01:01:00 415 [facility] 2020-11-17 2020-11-17 Outpatient ERICKSON_R [facility] [id number] - [place] 04:44:00 04:44:00 315 Commun i [facility] 2020-11-17 2020-11-17 Dany [facility] [place] 15 [place] 00:00:00 00:00:00 [facility] - ty DO: [address] [facility] [place] [place] [address] LEEANNA , Ph. 2020-11-17 2020-11-17 Outpatient Leeanna [facility] [id number] 00:00:00 00:00:00 Dany [id number] [place] [id number] 2020-11-10 2020-11-10 Outpatient ERICKSON_R [facility] [id number] [place] 11:28:00 11:28:00 308 [facility] 2020-11-10 2020-11-10 Dany [facility] [place] [id number] [place] 00:00:00 00:00:00 [facility] - ty DO: [address] Hospit a [facility], [facility] [place], [place], [address] LEEANNA , Ph. 2020-11-10 2020-11-10 Outpatient Leeanna [facility] [id number] 00:00:00 00:00:00 Dany [id number] [place] [id number] 2020-10-30 2020-10-30 Outpatient ERICKSON_R [facility] [id number] [place] 09:13:00 09:13:00 225 [facility] 2020-10-27 2020-10-27 Outpatient ERICKSON_R [facility] [id number] [place] 02:56:00 02:56:00 222 Commun i [facility] 2020-10-27 2020-10-27 [facility] [place] 00:00:00 00:00:00 [facility] DO: [address] [facility] Hospit a [facility] [address], H[facility]PITAL [place], [place], [address] LEEANNA , Ph. 2020-10-27 2020-10-27 Outpatient Leeanna [facility] [id number] 00:00:00 00:00:00 Dany [id number] [place] [id number] 2020-10-27 2020-10-27 Outpatient Leeanna [facility] [id number] 00:00:00 00:00:00 Dany [id number] [place] [id number] 2020-10-21 2020-10-21 Outpatient ERICKSON_R [facility] [id number] [place] 11:44:00 11:44:00 216 [facility] 2020-10-17 2020-10-17 Outpatient ERICKSON_R [facility] [id number] [place] 11:23:00 11:23:00 212 [facility] 2020-10-17 2020-10-17 Outpatient Leeanna [facility] [id number] 00:00:00 00:00:00 Dany [id number] [place] [id number] 2020-10-17 2020-10-17 [place] [place] 12 [place] 00:00:00 00:00:00 [facility] DO: [address] [facility], [place], [place] CLINIC, [address] LEEANNA , Ph. [phone] 2020-10-13 2020-10-13 Outpatient ERICKSON_R [facility] [id number] [place] 11:56:00 11:56:00 208 [facility] 2020-10-13 2020-10-13 [place] [place] 00:00:00 00:00:00 [facility] DO: [address] a [facility], [facility] [place], [place] CLINIC, [address] LEEANNA , Ph. 2020-10-06 2020-10-06 Outpatient ERICKSON_R [facility] [id number] [place] 01:03:00 01:03:00 201 [facility] i [facility] Clinics 2020-09-30 2020-09-30 Outpatient ERICKSON_R [facility] [id number] [place] 02:16:00 02:16:00 126 Commun i ty [facility] Clinics 2020-09-26 2020-09-26 Outpatient ERICKSON_R [facility] [id number] [place] 09:12:00 09:12:00 122 Commun i ty Hosp[facility] Clinics 2020-09-23 2020-09-23 Outpatient ERICKSON_R [facility] [id number] [place] 09:29:00 09:29:00 119 Commun i ty Hospita [facility] Clinics 2020-09-23 2020-09-23 Outpatient Durán, [facility] [id number] 00:00:00 00:00:00 Dany [id number] Juanpablo [id number] 2020-09-23 2020-09-23 [place] [place] 00:00:00 00:00:00 [facility] DO: [address], [place]IN[place], [address] LEEANNA , Ph. 2020-09-12 2020-09-12 Outpatient ERICKSON_R [facility] [id number] [place] 12:08:00 12:08:00 108 Commun i ty Hospita Clinics 2020-09-11 2020-09-11 Outpatient ERICKSON_R [facility] [id number] [place] 05:56:00 05:56:00 107 Commun i ty Hosp[facility] 2020-09-08 2020-09-08 Outpatient ERICKSON_R [facility] [id number] [place] 10:49:00 10:49:00 104 Commun i ty Hospita [facility] 2020-09-08 2020-09-08 Outpatient Durán, [facility] [id number] 00:00:00 00:00:00 Dany [id number] Juanpablo [id number] 2020-09-08 2020-09-08 [facility] [place] 04 [place] 00:00:00 00:00:00 [facility] DO: [address], [place]IC, [address] LEEANNA , Ph. [phone] 2020-09-01 2020-09-01 Outpatient ERICKSON_R [facility] 8298 - [place] 01:03:00 01:03:00 228 Commun i ty Hospita [facility] Results Test Description Test Time Test Comments Results Result Comments Source Urinalysis macro (dipstick) panel - Urine 2023-05-02 09:23:0 0 Test Item Value Reference Range Interpretation Comme nts Leukocytes (test code = Leukocytes) Trace Nitrite (test code = Nitrite) negative Urobilinogen (test code = Urobilinogen) .2 Protein (test code = Protein) 30 pH (test code = pH) 7.5 Blood (test code = Blood) Negative Specific Serena (test code = Specific Serena) 1.010 Ketone (test code = Ketone) Negative Bilirubin (test code = Bilirubin) Small Glucose (test code = Glucose) Negative Appearance (test code = Appearance) Slightly Cloudy Color (test code = Color) Yellow [facility] - Urine 2021-11-09 10:32:00 Test Item Value Reference Range Interpretation Comments Leukocytes (test code = Negative Leukocytes) Nitrite (test code = Nitrite) negative Urobilinogen (test code = .2 Urobilinogen) Protein (test code = Protein) 30 pH (test code = pH) 6.0 Blood (test code = Blood) Negative Specific Serena (test code = 1.020 Specific Serena) Ketone (test code = Ketone) Negative Bilirubin (test code = Bilirubin) Small Glucose (test code = Glucose) Negative Appearance (test code = Clear Appearance) Color (test code = Color) Dark Yellow [facility] - Urine 2021-11-09 10:32:00 Test Item Value Reference Range Interpretation Comments Leukocytes (test code = Negative Leukocytes) Nitrite (test code = Nitrite) negative Urobilinogen (test code = .2 Urobilinogen) Protein (test code = Protein) 30 pH (test code = pH) 6.0 Blood (test code = Blood) Negative Specific Serena (test code = 1.020 Specific Serena) Ketone (test code = Ketone) Negative Bilirubin (test code = Bilirubin) Small Glucose (test code = Glucose) Negative Appearance (test code = Clear Appearance) Color (test code = Color) Dark Yellow [facility] 2021-10-30 00:00:00 Test Item Value Reference Range Interpretation Comments Bacteria identified in proteus mirabilis A Urine by Culture (test code = 630-4) Other Antibiotic comment [Susceptibility] (test code = 39299-1) [facility] 2021-10-30 00:00:00 Test Item Value Reference Range Interpretation Comments Bacteria identified in proteus mirabilis A Urine by Culture (test code = 630-4) Other Antibiotic comment [Susceptibility] (test code = 36562-1) [facility] 2021-10-30 00:00:00 Test Item Value Reference Range Interpretation Comments Bacteria identified in proteus mirabilis A Urine by Culture (test code = 630-4) Other Antibiotic comment [Susceptibility] (test code = 21032-2) [facility] 2021-10-30 00:00:00 Test Item Value Reference Range Interpretation Comments Bacteria identified in proteus mirabilis A Urine by Culture (test code = 630-4) Other Antibiotic comment [Susceptibility] (test code = 38832-6) [facility] 2021-10-30 00:00:00 Test Item Value Reference Range Interpretation Comments Bacteria identified in proteus mirabilis A Urine by Culture (test code = 630-4) Other Antibiotic comment [Susceptibility] (test code = 28456-2) [facility] 2021-10-30 00:00:00 Test Item Value Reference Range Interpretation Comments Bacteria identified in proteus mirabilis A Urine by Culture (test code = 630-4) Other Antibiotic comment [Susceptibility] (test code = 57260-7) [facility] 2021-10-30 00:00:00 Test Item Value Reference Range Interpretation Comments Bacteria identified in proteus mirabilis A Urine by Culture (test code = 630-4) Other Antibiotic comment [Susceptibility] (test code = 36927-2) [facility] 2021-10-30 00:00:00 Test Item Value Reference Range Interpretation Comments Bacteria identified in proteus mirabilis A Urine by Culture (test code = 630-4) Other Antibiotic comment [Susceptibility] (test code = 43141-1) [facility] 2021-10-30 00:00:00 Test Item Value Reference Range Interpretation Comments Bacteria identified in proteus mirabilis A Urine by Culture (test code = 630-4) Other Antibiotic comment [Susceptibility] (test code = 86637-3) [facility] - Urine 2021-10-27 15:11:00 Test Item Value Reference Range Interpretation Comments Leukocytes (test code = Trace Leukocytes) Nitrite (test code = Nitrite) negative Urobilinogen (test code = .2 Urobilinogen) Protein (test code = Protein) 100 pH (test code = pH) 8.5 Blood (test code = Blood) Negative Specific Serena (test code = 1.000 Specific Serena) Ketone (test code = Ketone) Negative Bilirubin (test code = Bilirubin) Small Glucose (test code = Glucose) Negative Appearance (test code = Cloudy Appearance) Color (test code = Color) Dark Yellow [place] [facility] - Urine 2021-10-27 15:11:00 Test Item Value Reference Range Interpretation Comments Leukocytes (test code = Trace Leukocytes) Nitrite (test code = Nitrite) negative Urobilinogen (test code = .2 Urobilinogen) Protein (test code = Protein) 100 pH (test code = pH) 8.5 Blood (test code = Blood) Negative Specific Serena (test code = 1.000 Specific Serena) Ketone (test code = Ketone) Negative Bilirubin (test code = Bilirubin) Small Glucose (test code = Glucose) Negative Appearance (test code = Cloudy Appearance) Color (test code = Color) Dark Yellow [place] [facility] ([facility]stick) panel - Urine 2021-10-27 15:11:00 Test Item Value Reference Range Interpretation Comments Leukocytes (test code = Trace Leukocytes) Nitrite (test code = Nitrite) negative Urobilinogen (test code = .2 Urobilinogen) Protein (test code = Protein) 100 pH (test code = pH) 8.5 Blood (test code = Blood) Negative Specific Serena (test code = 1.000 Specific Serena) Ketone (test code = Ketone) Negative Bilirubin (test code = Bilirubin) Small Glucose (test code = Glucose) Negative Appearance (test code = Cloudy Appearance) Color (test code = Color) Dark Yellow [place] [facility] ([facility]stick) panel - Urine 2021-10-27 15:11:00 Test Item Value Reference Range Interpretation Comments Leukocytes (test code = Trace Leukocytes) Nitrite (test code = Nitrite) negative Urobilinogen (test code = .2 Urobilinogen) Protein (test code = Protein) 100 pH (test code = pH) 8.5 Blood (test code = Blood) Negative Specific Serena (test code = 1.000 Specific Serena) Ketone (test code = Ketone) Negative Bilirubin (test code = Bilirubin) Small Glucose (test code = Glucose) Negative Appearance (test code = Cloudy Appearance) Color (test code = Color) Dark Yellow [facility]) panel - Urine 2021-10-27 15:11:00 Test Item Value Reference Range Interpretation Comments Leukocytes (test code = Trace Leukocytes) Nitrite (test code = Nitrite) negative Urobilinogen (test code = .2 Urobilinogen) Protein (test code = Protein) 100 pH (test code = pH) 8.5 Blood (test code = Blood) Negative Specific Serena (test code = 1.000 Specific Serena) Ketone (test code = Ketone) Negative Bilirubin (test code = Bilirubin) Small Glucose (test code = Glucose) Negative Appearance (test code = Cloudy Appearance) Color (test code = Color) Dark Yellow [facility]) panel - Urine 2021-10-27 15:11:00 Test Item Value Reference Range Interpretation Comments Leukocytes (test code = Trace Leukocytes) Nitrite (test code = Nitrite) negative Urobilinogen (test code = .2 Urobilinogen) Protein (test code = Protein) 100 pH (test code = pH) 8.5 Blood (test code = Blood) Negative Specific Serena (test code = 1.000 Specific Serena) Ketone (test code = Ketone) Negative Bilirubin (test code = Bilirubin) Small Glucose (test code = Glucose) Negative Appearance (test code = Cloudy Appearance) Color (test code = Color) Dark Yellow [facility]) panel - Urine 2021-10-27 15:11:00 Test Item Value Reference Range Interpretation Comments Leukocytes (test code = Trace Leukocytes) Nitrite (test code = Nitrite) negative Urobilinogen (test code = .2 Urobilinogen) Protein (test code = Protein) 100 pH (test code = pH) 8.5 Blood (test code = Blood) Negative Specific Serena (test code = 1.000 Specific Serena) Ketone (test code = Ketone) Negative Bilirubin (test code = Bilirubin) Small Glucose (test code = Glucose) Negative Appearance (test code = Cloudy Appearance) Color (test code = Color) Dark Yellow [facility] ([facility]) panel - Urine 2021-10-27 15:11:00 Test Item Value Reference Range Interpretation Comments Leukocytes (test code = Trace Leukocytes) Nitrite (test code = Nitrite) negative Urobilinogen (test code = .2 Urobilinogen) Protein (test code = Protein) 100 pH (test code = pH) 8.5 Blood (test code = Blood) Negative Specific Serena (test code = 1.000 Specific Serena) Ketone (test code = Ketone) Negative Bilirubin (test code = Bilirubin) Small Glucose (test code = Glucose) Negative Appearance (test code = Cloudy Appearance) Color (test code = Color) Dark Yellow [facility] ([facility]stick) panel - Urine 2021-10-27 15:11:00 Test Item Value Reference Range Interpretation Comments Leukocytes (test code = Trace Leukocytes) Nitrite (test code = Nitrite) negative Urobilinogen (test code = .2 Urobilinogen) Protein (test code = Protein) 100 pH (test code = pH) 8.5 Blood (test code = Blood) Negative Specific Serena (test code = 1.000 Specific Serena) Ketone (test code = Ketone) Negative Bilirubin (test code = Bilirubin) Small Glucose (test code = Glucose) Negative Appearance (test code = Cloudy Appearance) Color (test code = Color) Dark Yellow [facility] by [facility] 2021-10-05 00:00:00 Test Item Value Reference Range Interpretation Comments Bacteria identified in Urine escherichia coli A by Culture (test code = 630-4) Other Antibiotic comment [Susceptibility] (test code = 75283-8) [facility] ([facility]stick) panel - Urine 2021-10-01 17:52:00 Test Item Value Reference Range Interpretation Comments Leukocytes (test code = Moderate Leukocytes) Nitrite (test code = Nitrite) negative Urobilinogen (test code = .2 Urobilinogen) Protein (test code = Protein) 30 pH (test code = pH) 6.0 Blood (test code = Blood) Negative Specific Serena (test code = 1.020 Specific Serena) Ketone (test code = Ketone) Small Bilirubin (test code = Bilirubin) Negative Glucose (test code = Glucose) Negative Appearance (test code = Cloudy Appearance) Color (test code = Color) Dark Yellow [facility] GLUCOSE (AUTOMATED)2021-03-13 16:52:34 Test Item Value Reference Range Interpretation Comments POCT GLU (test code = 8856305930) 152 mg/dL 70-110 H Lab Interpretation (test code = Abnormal 49388-8) [facility] METABOLIC PANEL (NA, K, CL, CO2, GLUCOSE, BUN, CREATININE, CA)2021-03-13 12:03:23 Test Item Value Reference Range Interpretation Comments NA (test code = 139 mmol/L 135-145 7360842269) K (test code = 3.5 mmol/L 3.5-5.0 6625396452) CL (test code = 112 mmol/L 98-108 H 3463222312) CO2 TOTAL (test code = 27 mmol/L 23-31 8235730626) AGAP (test code = <1 2-16 L 6389549641) BUN (test code = 22 mg/dL 7-23 1245129550) GLUCOSE (test code = 125 mg/dL 70-110 H 8203763255) CREATININE (test code = 0.64 mg/dL 0.50-1.04 1137905411) CALCIUM (test code = 7.9 mg/dL 8.6-10.6 L 5001364944) eGFR (test code = mL/min/1.73m2 5809851317) INDRA (test code = INDRA) Association of [...] tests). Lab Interpretation Abnormal (test code = 96600-6) [facility] WITHOUT [id number] 11:39:33 Test Item Value Reference Range Interpretation Comments WBC (test code = 6690-2) See_Comment L [A utomated message] The system [employer] generated this result transmit komal reference range : 4.30 - 11.10 10*3/?L. The reference range was not used to interpret this result as normal/abnormal . RBC (test code = 789-8) See_Comment L [Au tomated message] The system [employer] generated this result transmit komal reference range [...] See_Comment L [Au tomated message] The system [employer] generated this result transmit komal reference range : 166 - 358 10*3/?L. The reference range was not used to interpret this result as normal/abnormal . MPV (test code = 11.1 fL 9.5-12.9 12167-4) RDW-CV (test code = 16.7 % 12.0-15.5 H 788-0) RDW-SD (test code = 56.3 fL 39.0-49.9 H 07476-8) NRBC x10^3 (test code = <0.01 See_Comment [Au tomated message] 1294689686) The system whic h generated this result transmit komal reference range : 10*3/?L. The reference range was not used to interpret this result as normal/abnormal . NRBC/100 WBC (test code See_Comment [Au tomated message] = 8884270031) The system i ch generated this result transmit komal reference range : 0.0 - 10.0 /100 WBC s. The reference r ming was not used to interpret this result as normal/abnormal . IPF % (test code = 6204654018) Lab Interpretation (test Abnormal code = 63017-0) [facility]03[facility]56 Test Item Value Reference Range Interpretation Comments MAGNESIUM (test code = 0693966800) 2.6 mg/dL 1.7-2.4 H Lab Interpretation (test code = Abnormal 30211-3) [facility] WITH [id number] 10:36:35 Test Item Value Reference Range Interpretation [...] (test code = 56.6 fL 39.0-49.9 H 48281-3) RDW-CV (test code = 16.4 % 12.0-15.5 H 788-0) PLT (test code = See_Comment L [Automated 777-3) message] The sy stem which generated this result transmitted reference range : 166 - 358 10*3/ ?L. The reference r ming was not used to interpret this result as normal/abnormal . MPV (test code = 11.6 fL 9.5-12.9 76330-6) NRBC/100 WBC (test See_Comment [Automat ed code = 6168516412) message] The system which generated this result transmitted reference range : 0.0 - 10.0 /100 WBCs. The refer ence range was not u sed to interpret th is result as normal/abnormal . NRBC x10^3 (test code <0.01 See_Comment [Auto mated = 4836390600) message] The s ystem which generated this result transmitted reference range : 10*3/?L. The reference range was not used to interpret this result as normal/abnormal . GRAN MAT (NEUT) % 77.8 % (test code = 770-8) IMM GRAN % (test code 0.30 % = 3117805226) LYMPH % (test code = 16.7 % 736-9) MONO % (test code = 4.4 % 5905-5) EOS % (test code = 0.5 % 713-8) BASO % (test code = 0.3 % 706-2) GRAN MAT x10^3(ANC) 2.84 10*3/uL 1.88-7.09 (test code = 8906820995) IMM GRAN x10^3 (test <0.03 0.00-0.06 code = 7783630437) LYMPH x10^3 (test code 0.61 10*3/uL 1.32-3.29 L = 731-0) MONO x10^3 (test code 0.16 10*3/uL 0.33-0.92 L = 742-7) EOS x10^3 (test code = <0.03 0.03-0.39 L 711-2) BASO x10^3 (test code <0.03 0.01-0.07 = 704-7) Lab Interpretation Abnormal (test code = 62905-7) [facility] D[facility]2021-03-12 05:32:09 Test Item Value Reference Range Interpretation Comments APTT Patient (test code >150 See_Comment HH [Au tomated message] = 4913-2) The system [employer] generated this result transmitted ref erence range: 26 - 36 Seconds. The reference range was not used to int erpret this result as normal/abnormal . Lab Interpretation (test Abnormal code = 43301-5) [facility] [id number] 15:29:50 Test Item Value Reference Range Interpretation Comments IRON (test code = 6029443165) 53 ug/dL 50-160 TIBC (test code = 4782107056) 329 ug/dL 250-410 % FE SAT (test code = 5106628263) 16 % 20-50 L Lab Interpretation (test code = Abnormal 29933-7) [facility] [id number] 15:14:27 Test Item Value Reference Range Interpretation Comments FREE T4 (test code = See_Comment [Autom ated message] 2795896886) The system [employer] generated this result transmitted ref erence range: 0.78 - 2 .20 ng/dL:. The ref erence range was not u sed to interpret this result as normal/abnor mal. Lab Interpretation (test Normal code = 27289-7) [facility] [id number] 14:53:03 Test Item Value Reference Range Interpretation Comments FERRITIN (test code = 27.3 ng/mL 11.0-264.0 4424183949) INDRA (test code = INDRA) Biotin has been reported to cause a negative bias, interpret results relative to patient's use of biotin. Lab Interpretation (test Normal code = 12248-8) [facility] [id number] 14:31:57 Test Item Value Reference Range Interpretation Comments FREE T3 (test code = 0294711009) 1.71 pg/mL 2.77-5.27 L Lab Interpretation (test code = Abnormal 18155-6) [facility] (50110[facility]2021-03-11 14:26:43 Test Item Value Reference Range Interpretation Comments NA (test code = 141 mmol/L 135-145 2188257013) K (test code = 2.9 mmol/L 3.5-5.0 LL 4638446491) CL (test code = 106 mmol/L 98-108 0478114566) CO2 TOTAL (test code = 33 mmol/L 23-31 H 6876351528) AGAP (test code = 2-16 8551658024) BUN (test code = 14 mg/dL 7-23 9555247282) GLUCOSE (test code = 63 mg/dL 70-110 L 3988819157) CREATININE (test code = 0.53 mg/dL 0.50-1.04 2447391080) TOTAL BILI (test code = 0.5 mg/dL 0.1-1.8 5383693923) CALCIUM (test code = 7.9 mg/dL 8.6-10.6 L 9795085416) T PROTEIN (test code = 5.8 g/dL 6.3-8.2 L 2610243658) ALBUMIN (test code = 2.9 g/dL 3.5-5.0 L 8385368453) ALK PHOS (test code = 33 U/L 34-122 L 7162218687) ALTv (test code = 8 U/L 5-35 1742-6) AST(SGOT) (test code = 26 U/L 13-40 1710215135) eGFR (test code = mL/min/1.73m2 0227390597) INDRA (test code = INDRA) Association of [...] tests). Lab Interpretation Abnormal (test code = 10671-4) [facility] / [id number] 13:40:32 Test Item Value Reference Range Interpretation Comments PROTIME PATIENT (test See_Comment H [Auto mated message] code = 5964-2) The system [employer] generated this result transmitted ref erence range: 10.1 - 1 2.6 Seconds. The reference range was not used to int erpret this result as normal/abnormal . INR (test code = 6301-6) Nor mal INR <1.1; Warfarin Therap eutic range 2.0 to 3. 0 or 2.5 to 3.5, dep ending upon the indica tions. Lab Interpretation (test Abnormal code = 77563-7) [facility] (dipstick) panel - Urine 2020-10-17 10:17:00 Test Item Value Reference Range Interpretation Comments Leukocytes (test code = Leukocytes) Negative Nitrite (test code = Nitrite) negative Urobilinogen (test code = .2 Urobilinogen) Protein (test code = Protein) Trace pH (test code = pH) 8.0 Blood (test code = Blood) Negative Specific Serena (test code = 1.010 Specific Serena) Ketone (test code = Ketone) Negative Bilirubin (test code = Bilirubin) Negative Glucose (test code = Glucose) Negative [facility]) panel - Urine 2020-10-17 10:17:00 Test Item Value Reference Range Interpretation Comments Leukocytes (test code = Leukocytes) Negative Nitrite (test code = Nitrite) negative Urobilinogen (test code = .2 Urobilinogen) Protein (test code = Protein) Trace pH (test code = pH) 8.0 Blood (test code = Blood) Negative Specific Serena (test code = 1.010 Specific Serena) Ketone (test code = Ketone) Negative Bilirubin (test code = Bilirubin) Negative Glucose (test code = Glucose) Negative [facility] (dipstick) panel - Urine 2020-10-17 10:17:00 Test Item Value Reference Range Interpretation Comments Leukocytes (test code = Leukocytes) Negative Nitrite (test code = Nitrite) negative Urobilinogen (test code = .2 Urobilinogen) Protein (test code = Protein) Trace pH (test code = pH) 8.0 Blood (test code = Blood) Negative Specific Serena (test code = 1.010 Specific Serena) Ketone (test code = Ketone) Negative Bilirubin (test code = Bilirubin) Negative Glucose (test code = Glucose) Negative [facility] (dipstick) panel - Urine 2020-10-13 10:40:00 Test Item Value Reference Range Interpretation Comments Leukocytes (test code = Leukocytes) Negative Nitrite (test code = Nitrite) negative Urobilinogen (test code = 1 Urobilinogen) Protein (test code = Protein) 30 pH (test code = pH) 7.0 Blood (test code = Blood) Negative Specific Serena (test code = 1.010 Specific Serena) Ketone (test code = Ketone) Negative Bilirubin (test code = Bilirubin) Negative Glucose (test code = Glucose) Negative Appearance (test code = Appearance) Clear Color (test code = Color) Yellow [facility] (dipstick) panel - Urine 2020-10-13 10:40:00 Test Item Value Reference Range Interpretation Comments Leukocytes (test code = Leukocytes) Negative Nitrite (test code = Nitrite) negative Urobilinogen (test code = 1 Urobilinogen) Protein (test code = Protein) 30 pH (test code = pH) 7.0 Blood (test code = Blood) Negative Specific Serena (test code = 1.010 Specific Serena) Ketone (test code = Ketone) Negative Bilirubin (test code = Bilirubin) Negative Glucose (test code = Glucose) Negative Appearance (test code = Appearance) Clear Color (test code = Color) Yellow [facility] - Urine 2020-10-13 10:40:00 Test Item Value Reference Range Interpretation Comments Leukocytes (test code = Leukocytes) Negative Nitrite (test code = Nitrite) negative Urobilinogen (test code = 1 Urobilinogen) Protein (test code = Protein) 30 pH (test code = pH) 7.0 Blood (test code = Blood) Negative Specific Serena (test code = 1.010 Specific Serena) Ketone (test code = Ketone) Negative Bilirubin (test code = Bilirubin) Negative Glucose (test code = Glucose) Negative Appearance (test code = Appearance) Clear Color (test code = Color) Yellow [facility] panel - Urine 2020-10-13 10:40:00 Test Item Value Reference Range Interpretation Comments Leukocytes (test code = Leukocytes) Negative Nitrite (test code = Nitrite) negative Urobilinogen (test code = 1 Urobilinogen) Protein (test code = Protein) 30 pH (test code = pH) 7.0 Blood (test code = Blood) Negative Specific Serena (test code = 1.010 Specific Serena) Ketone (test code = Ketone) Negative Bilirubin (test code = Bilirubin) Negative Glucose (test code = Glucose) Negative Appearance (test code = Appearance) Clear Color (test code = Color) Yellow [facility] Ag [Presence] in Respiratory specimen by Rapid [id number] 08:28:00 Test Item Value Reference Range Interpretation Comments SARS CoV 2 (test code = SARS CoV 2) negative [facility]/ [id number] 14:50:00 Test Item Value Reference Range Interpretation [...] 1584) SOURCE(BEAKER) (test code = Urine, Voided 0593) [id number] 13:11:00 Test Item Value Reference Range Interpretation Comments LIPASE (BEAKER) (test code = 749) 45 U/L 8-78 BASIC METABOLIC [id number] 13:11:00 Test Item Value Reference Range Interpretation [...] APPLICABLE FOR DIALYSIS PATIEN TS. HEPATIC FUNCTION [id number] 13:11:00 Test Item Value Reference Range Interpretation [...] (test code = 14 U/L 6-55 347) [id number] 13:02:00 Test Item Value Reference Range Interpretation [...] mechanical heart valves.CBC W/PLT COUNT & AUTO [id number] 12:56:00 Test Item Value Reference Range Interpretation [...] PERCENT (BEAKER) (test code = 2801) TISSUE [id number] 13:06:00Surgical Pathology Report Case: [id number] Authorizing Provider: Luiz Villa Collected: 03/14/2018 1115 Ordering Location: [facility] Endoscopy Received: 03/14/2018 1351 Services Pathologist: Mara Barboza MD Specimens: A) - Polyp, Duodenum B) - Stomach, Antrum, bx C) - Biopsy,Gastric, gastric body D) - Biopsy, Esophagus, random THIS ADDENDUM IS ISSUED TO REPORT THE RESULT OF IMMUNOHISTOCHEMICAL STUDY FOR HELICOBACTER PYLORI OM SPECIMEN B: - NEGATIVE CPT CODE: [id number] electronically signed by Mara Barboza MD on 03/20/2018 at 1:06 PMA. DUODENUM, ENDOSCOPICPOLYPECTOMY: - COMPATIBLE WITH PEPTIC DUODENITIS - NO FEATURES OF CELIAC DISEASE SEEM - NEGATIVE FORDYSPLASIA OR MALIGNANCYB. STOMACH, ANTRUM, ENDOSCOPIC BIOPSY: - ACUTE GASTRITIS WITH EROSIONS AND REACTIVE GASTROPATHY - NO HELICOBACTER PYLORI-LIKE ORGANISMS SEEN ON WARTHIN-STARRY STAIN - NO INTESTINAL METAPLASI, DYSPLASIA OR MALIGNANCY NOTED - IMMUNOHISTOCHEMICAL STAIN FOR HELICOBACTER IS BEING DONE; RESULT WILL BE ISSUED IN FINAL REPORTC. STOMACH, BODY, ENDOSCOPIC BIOPSY: - OXYNTIC MUCOSA WITH NOPATHOLOGIC ALTERATION - NO HELICOBACTER PYLORI-LIKE ORGANISMS SEEN ON WARTHIN-STARRY STAIN - NO INTES TINAL METAPLASIA, DYSPLASIA OR MALIGNANCY NOTED D. ESOPHAGUS, RANDOM,ENDOSCOPIC BIOPSY - MULTIPLE FRAGMENTS OF SQUAMOUS MUCOSA WITH REACTIVE CHANGES - NO FEATURES OF REFLUX ESOPHAGITIS ARE SEEN - NO FEATURES OF EOSINOPHILIC ESOPHAGITIS NOTED - NO COLUMNAR MUCOSA PRESENT - NO DYSPLASIA OR MALIGNANCY SEEN Signing Pathologist Direct Phone Line: [phone] signed by Mara Barboza MD on 03/17/2018 at 10:35 [id number] X 4; [id number] X 2A. Polyp, duodenum. B. Stomach antrum. [...] x 0.2 x 0.2 cm aggregate of irregularshaped brown- chavez fragment of soft tissue that is submitted [...] brown-chavez to white irregular shaped fragment of softtissue that is submitted in toto in one cassette (D1). MH/ewThe following special studies were performed on this case and the interpretation is incorporated in the diagnostic report above:RHONDATHIN-STARRY X 2 POCT-GLUCOSE [id number] 12:41:00 Test Item Value Reference Range Interpretation Comments POC-GLUCOSE METER 75 mg/dL 70-[address] [facility] 6720 (BEAKER) (test code = [facility]e [facility] [address] 1538) BLOOD [id number] 06:00:00 Test Item Value Reference Range Interpretation Comments CULTURE (BEAKER) (test No growth in 5 days code = 1095) BLOOD [id number] 06:00:00 Test Item Value Reference Range Interpretation Comments CULTURE (BEAKER) (test No growth in 5 days code = 1095) POCT-GLUCOSE [id number] 12:32:00 Test Item Value Reference Range Interpretation Comments POC-GLUCOSE METER 217 mg/dL 70-110 H TESTED AT [place] [address] [facility] (test code = [facility] 1538) [address] POCT-GLUCOSE [id number] 08:36:00 Test Item Value Reference Range Interpretation Comments POC-GLUCOSE METER 92 mg/dL 70-[address] [facility] 6720 (BEAKER) (test code = [facility] [address] 1530) COMPREHENSIVE METABOLIC [id number] 04:59:00 Test Item Value Reference Range Interpretation [...] S NOT APPLICABLE FOR DIALYSIS PATIJESICA TS. [id number] 04:50:00 Test Item Value Reference Range Interpretation Comments MAGNESIUM (BEAKER) (test code = 1.7 mg/dL 1.6-2.6 627) PROTHROMBIN [id number] 04:35:00 Test Item Value Reference Range Interpretation [...] mechanical heart valves.CBC W/PLT COUNT & AUTO [id number] 04:24:00 Test Item Value Reference Range Interpretation [...] PERCENT (BEAKER) (test code = 2801) POCT-GLUCOSE [id number] 22:13:00 Test Item Value Reference Range Interpretation Comments POC-GLUCOSE METER 194 mg/dL 70-[address] [facility] 6720 (BEAKER) (test code = MICAH Kaye [facility] 1538) [address] POCT-GLUCOSE [id number] 18:14:00 Test Item Value Reference Range Interpretation Comments POC-GLUCOSE METER 195 mg/dL 70-[address] [facility] 6720 (BEAKER) (test code = MICAH Kaye [facility] 1538) [address] POCT-GLUCOSE [id number] 12:20:00 Test Item Value Reference Range Interpretation Comments POC-GLUCOSE METER 224 mg/dL 70-[address] [facility] 6720 (BEAKER) (test code = MICAH Kaye [place] 1538) [address] [id number] 08:55:00 Test Item Value Reference Range Interpretation Comments LIPASE (BEAKER) (test code = 749) 471 U/L 8-78 H POCT-GLUCOSE [id number] 08:12:00 Test Item Value Reference Range Interpretation Comments POC-GLUCOSE METER 128 mg/dL 70-[address] [facility] 6720 (BEAKER) (test code = MICAH Kaye [place] 1538) [address] [id number] 04:12:00 Test Item Value Reference Range Interpretation Comments T3 TOTAL (BEAKER) (test code = 656) 41 ng/dL 48-159 L T3, [id number] 04:11:00 Test Item Value Reference Range Interpretation Comments T3 FREE (BEAKER) (test code = 908) 1.31 pg/mL 1.71-3.71 L COMPREHENSIVE METABOLIC [id number] 04:01:00 Test Item Value Reference Range Interpretation [...] S NOT APPLICABLE FOR DIALYSIS PATIEN TS. [id number] 03:54:00 Test Item Value Reference Range Interpretation Comments MAGNESIUM (BEAKER) (test code = 1.7 mg/dL 1.6-2.6 627) PROTHROMBIN [id number] 03:53:00 Test Item Value Reference Range Interpretation [...] mechanical heart valves.CBC W/PLT COUNT & AUTO [id number] 03:46:00 Test Item Value Reference Range Interpretation [...] PERCENT (BEAKER) (test code = 2801) POCT-GLUCOSE [id number] 22:34:00 Test Item Value Reference Range Interpretation Comments POC-GLUCOSE METER 252 mg/dL 70-[address] [facility] 6720 (BEAKER) (test code = MICAH Kaye [place] 1538) [address] [id number] 19:36:00 Test Item Value Reference Range Interpretation Comments MAGNESIUM (BEAKER) (test code = 1.6 mg/dL 1.6-2.6 627) BASIC METABOLIC [id number] 19:36:00 Test Item Value Reference Range Interpretation [...] NOT APPLICABLE FOR DIALYSIS PATIEN TS. URINE [id number] 11:51:00 Test Item Value Reference Range Interpretation Comments CULTURE ([facility]) (test code = 1095) No growth POCT-GLUCOSE [id number] 11:42:00 Test Item Value Reference Range Interpretation Comments POC-GLUCOSE METER 205 mg/dL 70-[address] [facility] 6720 ([facility]) (test code = MICAH Kaye [facility] 1538) [address] POCT-GLUCOSE [id number] 08:08:00 Test Item Value Reference Range Interpretation Comments POC-GLUCOSE METER 119 mg/dL 70-[address] [facility] 6720 ([facility]) (test code = [facility] Mikki [facility] 1538) [address] C. DIFFICILE GDH [id number] 07:40:00 Test Item Value Reference Range Interpretation Comments CDT TOXIN (test code Negative Negative = [id number]) CDT GDH ANTIGEN Positive Negative A C. difficile present but (test code = toxin not detec komal. [id number]) Indicates colon ization with non-toxige lizbeth strain [...] the [facility] MicrobiologyLab prior to clinical use.POCT-GLUCOSE [id number] 06:37:00 Test Item Value Reference Range Interpretation Comments POC-GLUCOSE METER 141 mg/dL 70-[address] [facility] 6720 (BEAKER) (test code = MIC[place] 1538) [address] COMPREHENSIVE METABOLIC [id number] 04:48:00 Test Item Value Reference Range Interpretation [...] NOT APPLICABLE FOR DIALYSIS PATIEN TS. PROTHROMBIN [id number] 04:40:00 Test Item Value Reference Range Interpretation Comments PROTIME (BEAKER) (test code = 23.8 seconds 11.7-14.7 H 759) INR (BEAKER) (test code = 370) 2.1 <=5.9 RECOMMENDED COUMADIN/WARFARIN INR THERAPY RANGESSTANDARD DOSE: 2.0 - 3.0 Includes: PROPHYLAXIS for venous thrombosis, systemic embolization; TREATMENT for venous thrombosis and/or pulmonary embolus.HIGH RISK: Target INR is 2.5-3.5 for patients with mechanical heart valves.While on warfarin.[id number] 04:29:00 Test Item Value Reference Range Interpretation Comments MAGNESIUM (BEAKER) (test code = 2.0 mg/dL 1.6-2.6 627) CBC W/PLT COUNT & AUTO [id number] 04:11:00 Test Item Value Reference Range Interpretation [...] PERCENT (BEAKER) (test code = 2801) POCT-GLUCOSE [id number] 22:19:00 Test Item Value Reference Range Interpretation Comments POC-GLUCOSE METER 266 mg/dL 70-110 H TESTED AT [place] [address] (BEAKER) (test code = [facility] 1538) [address] [id number] 17:54:00 Test Item Value Reference Range Interpretation Comments POTASSIUM (BEAKER) (test code = 4.2 meq/L 3.5-5.1 379) [id number] 17:23:00 Test Item Value Reference Range Interpretation Comments MAGNESIUM (BEAKER) (test code = 1.7 mg/dL 1.6-2.6 627) POCT-GLUCOSE [id number] 12:41:00 Test Item Value Reference Range Interpretation Comments POC-GLUCOSE METER 111 mg/dL 70-110 H TESTED AT [place] [address] (BEAKER) (test code = [facility] 1538) [address] [id number] 12:40:00 Test Item Value Reference Range Interpretation Comments POTASSIUM (BEAKER) (test code = 3.5 meq/L 3.5-5.1 379) POCT-GLUCOSE [id number] 10:05:00 Test Item Value Reference Range Interpretation Comments POC-GLUCOSE METER 94 mg/dL 70-110 TESTED AT [place] [address] (BEAKER) (test code = [facility] [address] 1538) COMPREHENSIVE METABOLIC [id number] 05:47:00 Test Item Value Reference Range Interpretation [...] S NOT APPLICABLE FOR DIALYSIS PATIEN TS. [id number] 05:44:00 Test Item Value Reference Range Interpretation Comments MAGNESIUM (BEAKER) (test code = 2.0 mg/dL 1.6-2.6 627) PROTHROMBIN [id number] 05:37:00 Test Item Value Reference Range Interpretation Comments PROTIME (BEAKER) (test code = 24.0 seconds 11.7-14.7 H 759) INR (BEAKER) (test code = 370) 2.2 <=5.9 RECOMMENDED COUMADIN/WARFARIN INR THERAPY RANGESSTANDARD DOSE: 2.0 - 3.0 Includes: PROPHYLAXIS for venous thrombosis, systemic embolization; TREATMENT for venous thrombosis and/or pulmonary embolus.HIGH RISK: Target INR is 2.5-3.5 for patients with mechanical heart valves.PROTHROMBIN [id number] 05:36:00 Test Item Value Reference Range Interpretation [...] valves.While on warfarin.CBC W/PLT COUNT & AUTO [id number] 05:35:00 Test Item Value Reference Range Interpretation [...] PERCENT (BEAKER) (test code = 2801) POCT-GLUCOSE [id number] 23:56:00 Test Item Value Reference Range Interpretation Comments POC-GLUCOSE METER 105 mg/dL 70-[address] [facility] 6720 ([facility]) (test code = MICAH [place] 1538) [address] TROPONIN [id number] 13:02:00 Test Item Value Reference Range Interpretation Comments TROPONIN I (AKER) (test code = 0.02 ng/mL 0.00-0.03 397) [...] Reference Range Interpretation Comments B-TYPE NATRIURETIC PEPTIDE (AKER) 975 pg/mL 0-100 H (test code = 700) POCT-GLUCOSE [id number] 12:18:00 Test Item Value Reference Range Interpretation Comments POC-GLUCOSE METER 175 mg/dL 70-[address] [facility] 6720 (MATTHEW) (test code = MICAH [place] 1538) [address] U/S, ABDOMINAL, [id number] 10:23:00Abdomen limited area? Add comment if clarification [...] Coffey MDReport Verified Date/Time: 01/14/2018 10:23:02 Reading Location:[address] Consult Reading Room T4, [id number] 08:42:00 Test Item Value Reference Range Interpretation Comments FREE T4 (MATTHEW) (test code = 655) 0.83 ng/dL 0.70-1.48 POCT-GLUCOSE [id number] 08:37:00 Test Item Value Reference Range Interpretation Comments POC-GLUCOSE METER 161 mg/dL 70-[address] [facility] 6720 ([facility]) (test code = MICAH [place] 1530) [address] TSH/FREE T4 IF [id number] 08:05:00 Test Item Value Reference Range Interpretation Comments THYROID STIMULATING HORMONE 0.02 uIU/mL 0.35-4.94 L ([facility]) (test code = 772) VITAMIN B12 AND [id number] 07:42:00 Test Item Value Reference Range Interpretation Comments VITAMIN B12 ([facility]) (test code = 1276 pg/mL 213-816 H 774) FOLATE ([facility]) (test code = 362) 8.8 ng/mL >=7.0 LIPID [id number] 07:14:00 Test Item Value Reference Range Interpretation Comments TRIGLYCERIDES ([facility]) (test code = 171 mg/dL 540) CHOLESTEROL ([facility]) (test code = 123 mg/dL 631) HDL CHOLESTEROL ([facility]) (test code 25 mg/dL = 976) LDL CHOLESTEROL CALCULATED ([facility]) 64 mg/dL (test code = [...] I ([facility]) (test code = 0.03 ng/mL 0.00-0.03 397) [...] acute neurological disease, and persistent tachyarrhythmia.URINALYSIS W/ [id number] 06:35:00 Test Item Value Reference Range Interpretation [...] 517) SOURCE(BEAKER) (test code = Urine, [place] 2540) [id number] 06:07:00 Test Item Value Reference Range Interpretation Comments MAGNESIUM (BEAKER) (test code = 1.8 mg/dL 1.6-2.6 627) [id number] 05:32:00 Test Item Value Reference Range Interpretation Comments MAGNESIUM (BEAKER) (test code = 2.5 mg/dL 1.6-2.6 627) COMPREHENSIVE METABOLIC [id number] 05:32:00 Test Item Value Reference Range Interpretation [...] NOT APPLICABLE FOR DIALYSIS PATIEN TS. PROTHROMBIN [id number] 05:10:00 Test Item Value Reference Range Interpretation [...] mechanical heart valves.CBC W/PLT COUNT & AUTO [id number] 05:03:00 Test Item Value Reference Range Interpretation [...] 0-1 PERCENT (BEAKER) (test code = 2801) [id number] 02:52:00 Test Item Value Reference Range Interpretation Comments PROCALCITONIN (BEAKER) (test code 0.41 ng/mL <0.05 H = 3036) SEPSIS RISK (ng/mL)Low: 0.05-0.50Intermediate: 0.51-2.00High: >=2.01LACTIC ACID, VENOUS, WHOLE [id number] 02:06:00 Test Item Value Reference Range Interpretation Comments LACTATE BLOOD VENOUS 1.3 mmol/L 0.5-2.2 Specime n slightly (2) (BEAKER) (test hemolyzed code = 2872) Effective 01/07/2016: Units/Reference Range ChangeNew: 0.5-2.2 mmol/L Previous: 5- 20 mg/dLCOMPREHENSIVE METABOLIC [id number] 02:06:00 Test Item Value Reference Range Interpretation [...] S NOT APPLICABLE FOR DIALYSIS PATIEN TS. [id number] 02:04:00 Test Item Value Reference Range Interpretation Comments LIPASE (BEAKER) (test code = 749) 730 U/L 8-78 H [id number] 02:04:00 Test Item Value Reference Range Interpretation Comments AMYLASE (BEAKER) (test code = 349) 226 U/L 25-125 H PROTHROMBIN [id number] 01:45:00 Test Item Value Reference Range Interpretation Comments PROTIME (BEAKER) (test code = 23.9 seconds 11.7-14.7 H 759) INR (BEAKER) (test code = 370) 2.1 <=5.9 RECOMMENDED COUMADIN/WARFARIN INR THERAPY RANGESSTANDARD DOSE: 2.0 - 3.0 Includes: PROPHYLAXIS for venous thrombosis, systemic embolization; TREATMENT for venous thrombosis and/or pulmonary embolus.HIGH RISK: Target INR is 2.5-3.5 for patients with mechanical heart valves.[id number] 01:45:00 Test Item Value Reference Range Interpretation Comments PARTIAL THROMBOPLASTIN TIME 32.4 seconds 22.5-36.0 (BEAKER) (test code = 760) CBC W/PLT COUNT & AUTO [id number] 01:38:00 Test Item Value Reference Range Interpretation [...] % 0-1 PERCENT (BEAKER) (test code = 4964)
[2023-07-09] MEDS ORDERED: ONDANSETRON 4 MG/2 ML VIAL ONE (10:48)
[2023-07-09] MEDS ORDERED: NA CHLORIDE 0.9% 1,000 ML ONE (10:48)
[2023-07-09] MEDS ORDERED: MORPHINE 4 MG/ML SYR ONE (10:48)
[2023-07-09 10:59] LABS: Absolute Lymphocytes (CBC) 1.1 K/uL (0.7-4.9); Hematocrit 42.8 % (36.0-45.0); Lymphocytes % 17.6 % (15.3-44.8); MCV 93.3 fL (80-100); MPV 8.9 fL (7.6-11.3); Platelets 138 thou/uL (152-406); RBC Red Blood Cell Count 4.59 M/uL (3.86-4.86)
[2023-07-09 11:15] LABS: Bilirubin Total 0.9 mg/dL (0.2-1.0); Potassium 3.1 mEq/L (3.5-5.1); Protein, Total 6.9 g/dL (6.4-8.2)
[2023-07-09 12:06] LABS: Specific Gravity 1.009 (1.005-1.030); Urine Bacteria None Seen /HPF (<20); Urine Bilirubin NEGATIVE (Negative); Urine Blood Negative (Negative); Urine Clarity Extremely Turbid (Clear); Urine Color Light-Yellow (Yellow); Urine Glucose NEGATIVE (Negative); Urine Mucus Slight /HPF (None Seen); Urine Protein NEGATIVE (Negative); Urine RBC <5 /HPF (None Seen); Urine Urobilinogen Normal (Normal)
--- NOTE | 2023-07-09 12:35 | RAD REPORT ---
EXAM DESCRIPTION: CTAbdomen Pelvis W Contrast - 07/09/2023 12:18 pm CLINICAL HISTORY: ABD PAIN COMPARISON: Abdomen Pelvis W Contrast dated 02/05/2023; Abdomen Pelvis W Contrast dated 12/12/2022; Abdomen Pelvis W Contrast dated 08/07/2021; Abdomen Pelvis W Contrast dated 04/19/2021 TECHNIQUE: CT of the abdomen and pelvis was performed. All CT scans are performed using dose optimization technique as appropriate and may include automated exposure control or mA/KV adjustment according to patient size. FINDINGS: Lower chest: Coronary artery calcifications. Aortic valve calcifications. Liver: Hepatic steatosis. Low-density liver lesions have benign imaging features. Biliary: Cholecystectomy. Extrahepatic biliary duct dilatation is likely related to the postcholecyst ectomy state. Stomach: No significant focal abnormality. Duodenum: No significant focal abnormality. Pancreas: No significant abnormality. Spleen: Subcentimeter splenic lesion is almost certainly benign. Adrenal: No suspicious lesions. Kidney/ureter: No hydronephrosis. No renal calculi. Retroperitoneum: No retroperitoneal adenopathy. Vascular: No aneurysm. Atherosclerosis. IVC filter Bowel: Diverticulosis. No evidence of acute diverticulitis.. Peritoneum: No ascites or free air. Small fat containing ventral hernia. Bladder: Grossly unremarkable. Reproductive: Hysterectomy. Bones: No acute fracture. Intramedullary maty in the right femur. L3 and L4 kyphoplasty changes. Multi level degenerative changes are present in the spine. Partially imaged new T8 compression fracture. Other: n/a IMPRESSION: No acute intra-abdominal or pelvic finding. Partially imaged T8 compression fracture is new since 02/05/2023 and probably subacute.
--- NOTE | 2023-07-09 13:26 | ER ---
Nurse's Notes [facility] Name: Emelia Payan Age: 82 yrs Sex: Female : 1940 Arrival Date: 07/09/2023 Time: 10:08 Bed 3 Private MD: Diagnosis: Dehydration;Muscle weakness (generalized);Diarrhea, unspecified;Nausea with vomiting, unspecified Presentation: 07/09 10:15 Chief complaint: Patient states: nausea, diarrhea, pain in neck , everything started a iw week and half ago, I have no appetite, if I eat I'm nauseated and have diarrhea, has hx of diverticulitis , denies abd pain. Coronavirus screen: At this time, the client does not indicate any symptoms associated with coronavirus-19. Ebola Screen: Patient negative for fever greater than or equal to 101.5 degrees Fahrenheit, and additional compatible Ebola Virus Disease symptoms Patient denies exposure to infectious person. Patient denies travel to an Ebola-affected area in the 21 days before illness onset. No symptoms or risks identified at this time. Initial Sepsis Screen: Does the patient meet any 2 criteria? No. Patient's initial sepsis screen is negative. Does the patient have a suspected source of infection? No. Patient's initial sepsis screen is negative. Risk Assessment: Do you want to hurt yourself or someone else? Patient reports no desire to harm self or others. Onset of symptoms was June 28, 2023. 10:15 Method Of Arrival: Wheelchair iw 10:15 Acuity: EDIS 3 iw Historical: - Allergies: 10:16 Bactrim; iw 10:16 Cipro; iw 10:16 Xarelto; iw 10:16 Zosyn; iw - PMHx: 10:16 adrenal insuficiency; Anxiety; Atrial Fib; Atrial Fib; CHF; CHF; CVA; Diabetes - IDDM; iw DVT; Hyperlipidemia; Hyperlipidemia; Hypertension; Hypertension; Hypothyroidism; L groin blood clot; lymphedema; Pancreatitis; - PSHx: 10:16 filter; iw - Immunization history:: Adult Immunizations up to date. - Social history:: Smoking status: Patient denies any tobacco usage or history of. Screenin:54 [facility] ED Fall Risk Assessment (Adult) Score/Fall Risk Level 3 or more points = High hb Risk Oriented to surroundings, Maintained a safe environment, Educated pt \T\ family on fall prevention, incl call for assistance when getting out of bed. Abuse screen: Denies threats or abuse. Denies injuries from another. Nutritional screening: No deficits noted. Tuberculosis screening: No symptoms or risk factors identified. Assessment: 10:54 General: Appears in no apparent distress. Behavior is calm, cooperative. Pain: Pain hb currently is 6 out of 10 on a pain scale. Neuro: Level of Consciousness is awake, alert, obeys commands, Oriented to person, place, time, situation. Cardiovascular: Patient's skin is warm and dry. Respiratory: Respiratory effort is even, unlabored, Respiratory pattern is regular, symmetrical. GI: Reports upper abdominal pain, diarrhea, nausea. : No signs and/or symptoms were reported regarding the genitourinary system. EENT: No signs and/or symptoms were reported regarding the EENT system. Derm: Skin is pink, warm \T\ dry. Musculoskeletal: No signs and/or symptoms reported regarding the musculoskeletal system. 11:45 Reassessment: Patient appears in no apparent distress at this time. No changes from hb previously documented assessment. Patient and/or family updated on plan of care and expected duration. Pain level reassessed. 12:34 Reassessment: Patient appears in no apparent distress at this time. No changes from hb previously documented assessment. Patient and/or family updated on plan of care and expected duration. Pain level reassessed. Patient is alert, oriented x 3, equal unlabored respirations, skin warm/dry/pink. 13:53 Reassessment: Patient appears in no apparent distress at this time. Patient and/or hb family updated on plan of care and expected duration. Pain level reassessed. Vital Signs: 10:15 BP 101 / 63; Pulse 81; Resp 16; Temp 98.4; Pulse Ox 97% on R/A; Weight 67.13 kg; Height iw 5 ft. 4 in. ; 11:30 BP 159 / 69; Pulse 54; Resp 15; Pulse Ox 98% on R/A; hb 12:30 BP 146 / 54; Pulse 58; Resp 17; Pulse Ox 98% on R/A; hb 13:54 BP 128 / 80; Pulse 69; Resp 14; Pulse Ox 96% ; ph 10:15 Body Mass Index 25.40 (67.13 kg, 162.56 cm) iw ED Course: 10:10 Patient arrived in ED. rg4 10:11 [facility] jh7 10:11 Adan Bolden MD is Attending Physician. jh7 10:16 Triage completed. iw 10:17 Arm band placed on. iw 10:54 Leslie Kellogg, RN is Primary Nurse. hb 10:54 Inserted saline lock: 22 gauge in right wrist, using aseptic technique. Blood collected.hb 10:55 Patient has correct armband on for positive identification. Provided Education on: . hb 12:20 CT Abd/Pelvis - IV Contrast Only In Process Unspecified. EDMS 13:25 Jere Sharma MD is Hospitalizing Provider. jh7 15:01 No provider procedures requiring assistance completed. Patient admitted, IV remains in place. Administered Medications: 10:56 Drug: NS 0.9% IV 1000 ml IV at 1 bolus Per protocol; 1000 mL bolus Route: IV; Rate: 1 hb bolus; Site: right wrist; 10:56 Drug: Ondansetron IVP 4 mg IVP once; over 2 minutes Route: IVP; Site: right wrist; hb 11:40 Follow up: Response: No adverse reaction hb 10:56 Drug: morphine IVP or IV 4 mg IVP once over 4 mins Route: IVP; Infused Over: 4 mins; hb Site: right wrist; 11:40 Follow up: Response: No adverse reaction hb 13:22 Drug: morphine IVP or IV 2 mg IVP once over 4 mins Route: IVP; Infused Over: 4 mins; hb Site: right wrist; Medication: 10:55 VIS not applicable for this client. hb Outcome: 13:26 Decision to Hospitalize by Provider. [facility] 15:00 Admitted to Tele accompanied by tech, via stretcher, room 205, Report called to Gilberto 15:00 Condition: stable 15:00 Instructed on the need for admit, Demonstrated understanding of instructions, 15:18 Patient left the ED. hb Signatures: Dispatcher [employer] EDMS Guerita Ray RN RN Cathy Elliott RN RN Leslie Kellogg, ODILON RN Eden Mercado rg4 Annel Ulrich FNP ALTERNATIVE MEDICINE PRACTITIONER [facility] Corrections: (The following items were deleted from the chart) 15:00 13:54 BP 128 / 80; Pulse 90bpm; Resp 14bpm; Pulse Ox 96%; hb ph
--- NOTE | 2023-07-09 13:26 | EDPHYS ---
Physician Documentation [facility] Name: Emelia Payan Age: 82 yrs Sex: Female : 1940 Arrival Date: 07/09/2023 Time: 10:08 Bed 3 Private MD: ED Physician Adan Bolden HPI: 07/09 10:15 This 82 yrs old Female presents to ER via Wheelchair with complaints of jh7 Vomiting/Diarrhea. 10:15 The patient presents to the emergency department with nausea, vomiting, diarrhea, jh7 abdominal pain, of the left upper quadrant. Onset: The symptoms/episode began/occurred 4 day(s) ago. Possible causes: unknown. Associated signs and symptoms: Pertinent positives: abdominal pain, diarrhea, nausea, vomiting, Pertinent negatives: fever. Patient reports that she has been unable to hold anything down for the past 4 days.. Historical: - Allergies: 10:16 Bactrim; iw 10:16 Cipro; iw 10:16 Xarelto; iw 10:16 Zosyn; iw - PMHx: 10:16 adrenal insuficiency; Anxiety; Atrial Fib; Atrial Fib; CHF; CHF; CVA; Diabetes - IDDM; iw DVT; Hyperlipidemia; Hyperlipidemia; Hypertension; Hypertension; Hypothyroidism; L groin blood clot; lymphedema; Pancreatitis; - PSHx: 10:16 filter; iw - Immunization history:: Adult Immunizations up to date. - Social history:: Smoking status: Patient denies any tobacco usage or history of. ROS: 10:15 Eyes: Negative for injury, pain, redness, and discharge, ENT: Negative for injury, jh7 pain, and discharge, Neck: Negative for injury, pain, and swelling, Cardiovascular: Negative for chest pain, palpitations, and edema, Respiratory: Negative for shortness of breath, cough, wheezing, and pleuritic chest pain, Back: Negative for injury and pain, MS/Extremity: Negative for injury and deformity, Skin: Negative for injury, rash, and discoloration, Neuro: Negative for headache, weakness, numbness, tingling, and seizure, 10:15 Constitutional: Positive for malaise, poor PO intake, Negative for fever, 10:15 Abdomen/GI: Positive for abdominal pain, nausea, vomiting, and diarrhea, Negative for rectal pain, rectal bleeding, 10:15 All other systems are negative, Exam: 10:15 Head/Face: Normocephalic, atraumatic. Eyes: Pupils equal round and reactive to light, jh7 extra-ocular motions intact. Lids and lashes normal. Conjunctiva and sclera are non-icteric and not injected. Cornea within normal limits. Periorbital areas with no swelling, redness, or edema. ENT: Nares patent. No nasal discharge, no septal abnormalities noted. Tympanic membranes are normal and external auditory canals are clear. Oropharynx with no redness, swelling, or masses, exudates, or evidence of obstruction, uvula midline. Mucous membranes moist. Cardiovascular: Regular rate and rhythm with a normal S1 and S2. No gallops, murmurs, or rubs. Normal PMI, no JVD. No pulse deficits. Respiratory: Lungs have equal breath sounds bilaterally, clear to auscultation and percussion. No rales, rhonchi or wheezes noted. No increased work of breathing, no retractions or nasal flaring. Back: No spinal tenderness. No costovertebral tenderness. Full range of motion. Skin: Warm, dry with normal turgor. Normal color with no rashes, no lesions, and no evidence of cellulitis. MS/ Extremity: Pulses equal, no cyanosis. Neurovascular intact. Full, normal range of motion. Neuro: Awake and alert, GCS 15, oriented to person, place, time, and situation. 10:15 Constitutional: The patient appears alert, awake, in obvious pain, 10:15 Abdomen/GI: Inspection: abdomen appears normal, Bowel sounds: normal, Palpation: soft, mild abdominal tenderness, in the left upper quadrant, Vital Signs: 10:15 BP 101 / 63; Pulse 81; Resp 16; Temp 98.4; Pulse Ox 97% on R/A; Weight 67.13 kg; Height iw 5 ft. 4 in. ; 11:30 BP 159 / 69; Pulse 54; Resp 15; Pulse Ox 98% on R/A; hb 12:30 BP 146 / 54; Pulse 58; Resp 17; Pulse Ox 98% on R/A; hb 13:54 BP 128 / 80; Pulse 69; Resp 14; Pulse Ox 96% ; ph 10:15 Body Mass Index 25.40 (67.13 kg, 162.56 cm) iw MDM: 10:11 Patient medically screened. jh7 13:00 Differential diagnosis: Nonspecific abd pain, gastritis, pancreatitis, diverticulitis, 7 viral gastroenteritis, gastroenteritis. Data reviewed: vital signs, nurses notes, lab test result(s), EKG, radiologic studies, CT scan. Consideration of Admission/Observation Patient was admitted/placed on observation. Management of patient was discussed with the following: Hospitalist: Dr. Sharma. I considered the following discharge prescriptions or medication management in the emergency department Medications were administered in the Emergency Department. See MAR. Historians other than the Patient: Spouse/Significant Other: . Care significantly affected by the following chronic conditions: Diabetes, Hypertension, Congestive Heart Failure. Counseling: I had a detailed discussion with the patient and/or guardian regarding the historical points, exam findings, and any diagnostic results supporting the discharge/admit diagnosis, the need for further work-up and treatment in the hospital. Response to treatment: the patient's symptoms have mildly improved after treatment. ED course: Patient symptoms only mildly improved after pain medication administration. She will be admitted for dehydration and generalized weakness.. 07/09 10:25 Order name: CBC with Diff; Complete Time: 11:34 [facility] 07/09 10:25 Order name: CMP; Complete Time: 11:34 [facility] 07/09 10:25 Order name: Lipase; Complete Time: 11:34 [facility] 07/09 10:25 Order name: Urinalysis w/ reflexes; Complete Time: 12:56 [facility] 07/09 13:19 Order name: Troponin High Sensitivity; Complete Time: 14:48 [facility] 07/09 14:34 Order name: CBC with Automated Diff [facility] 07/09 14:34 Order name: CBC with Automated Diff [facility] 07/09 14:34 Order name: Comprehensive Metabolic Panel [facility] 07/09 14:34 Order name: Comprehensive Metabolic Panel [facility] 07/09 14:34 Order name: Lipid Profile [facility] 07/09 14:34 Order name: Lipid Profile [facility] 07/09 14:34 Order name: Troponin High Sensitivity [facility] 07/09 14:34 Order name: Troponin High Sensitivity [facility] 07/09 14:34 Order name: Troponin High Sensitivity [facility] 07/09 14:34 Order name: Troponin High Sensitivity [facility] 07/09 14:35 Order name: C-Reactive Protein [facility] 07/09 14:35 Order name: Cortisol [facility] 07/09 14:35 Order name: Lactate w/ 2H reflex if indic. [facility] 07/09 14:35 Order name: Lactic Dehydrogenase [facility] 07/09 14:35 Order name: Magnesium [facility] 07/09 14:35 Order name: T4 Free [facility] 07/09 14:35 Order name: Thyroid Stimulating Hormone [facility] 07/09 10:25 Order name: CT Abd/Pelvis - IV Contrast Only; Complete Time: 12:56 [facility] 07/09 14:34 Order name: CONS Physician Consult [facility] 07/09 10:25 Order name: IV Saline Lock; Complete Time: 10:56 [facility] 07/09 10:25 Order name: Labs collected and sent; Complete Time: 10:56 [facility] 07/09 13:21 Order name: EKG - Nurse/Tech; Complete Time: 13:38 [facility] Administered Medications: 10:56 Drug: NS 0.9% IV 1000 ml IV at 1 bolus Per protocol; 1000 mL bolus Route: IV; Rate: 1 hb bolus; Site: right wrist; 10:56 Drug: Ondansetron IVP 4 mg IVP once; over 2 minutes Route: IVP; Site: right wrist; hb 11:40 Follow up: Response: No adverse reaction hb 10:56 Drug: morphine IVP or IV 4 mg IVP once over 4 mins Route: IVP; Infused Over: 4 mins; hb Site: right wrist; 11:40 Follow up: Response: No adverse reaction hb 13:22 Drug: morphine IVP or IV 2 mg IVP once over 4 mins Route: IVP; Infused Over: 4 mins; hb Site: right wrist; Disposition: 17:00 Co-signature as Attending Physician, Adan Bolden MD I reviewed the patient's care rn provided by the Advanced Practice Provider and agree with the diagnosis and treatment plan. Disposition Summary: 07/09/23 13:26 Hospitalization Ordered Notes: Hospitalization Status: Inpatient Admission [facility] Provider: Jere Sharma Location: Telemetry/MedSurg (Inpatient) [facility] Condition: Fair [facility] Problem: new jh7 Symptoms: have worsened jh7 Bed/Room Type: Standard [facility] Room Assignment: 205(07/09/23 14:46) dw Diagnosis - Dehydration jh7 - Muscle weakness (generalized) jh7 - Diarrhea, unspecified jh7 - Nausea with vomiting, unspecified [facility] Forms: - Medication Reconciliation Form jh7 - SBAR form [facility] - Leadership Thank You Letter [facility] Signatures: Dispatcher [employer] Ailyn Ulloa RN RN dw Williams, Irene, RN RN iw Nieto, Roman, MD MD rn Baxter, Heather, RN RN hb Hadash, Jennifer, MEDICATION NURSE MEDICATION NURSE [facility] Corrections: (The following items were deleted from the chart) 14:46 13:26 [facility]
[2023-07-09] MEDS ORDERED: MORPHINE 2 MG/ML SYR ONE (13:33)
[2023-07-09] MEDS ORDERED: SODIUM CHLORIDE 0.9% 10ML INJ IV PRN (14:26)
[2023-07-09] MEDS ORDERED: LOPERAMIDE HCL 2 MG CAPSULE PO PRN (14:26)
--- NOTE | 2023-07-09 14:35 | P.HP ---
Certification for Inpatient Patient admitted to: Observation With expected LOS: <2 Midnights Patient will require the following post-hospital care: Home Health Services Practitioner: I am a practitioner with admitting privileges, knowledge of patient current condition, hospital course, and medical plan of care. Services: Services provided to patient in accordance with Admission requirements found in Title 42 Section 412.3 of the Code of Federal Regulations Patient History Date of Service: 07/09/23 Reason for admission: Intractable nausea and vomiting and diarrhea History of Present Illness: Patient is a 82-year-old female who comes into the emergency room with abdominal pain along with intractable nausea and vomiting and diarrhea. Patient has been having symptoms for about a week. The diarrhea has not been improving. Patient came to the hospital for further evaluation. In the emergency room patient had imaging studies that did not reveal any significant abnormality. Patient had a lot of chronic abdominal issues including pancreatitis and diverticulitis.Patient also has a history of hypertension, diabetes, and coronary artery disease. Patient was also diagnosed with a CVA and hypothyroidism. Patient has had a renal insufficiency as well. At this time, patient will be admitted to the hospital for further evaluation. Allergies ciprofloxacin [From Cipro] Allergy (Verified 12/11/21 13:09) Rash rivaroxaban [From Xarelto] Allergy (Verified 12/11/21 13:09) Excessive Bleeding Milk Containing Products (Dairy) [Milk Containing Products] Adverse Reaction (Verified 12/11/21 13:09) Diarrhea piperacillin [From Zosyn] Adverse Reaction (Verified 12/11/21 13:09) Hives/Rash tazobactam [From Zosyn] Adverse Reaction (Verified 12/11/21 13:09) Hives/Rash Home Medications: Atorvastatin Calcium [Lipitor*] 20 mg PO BEDTIME 12/11/21 Amiodarone HCl [Cordarone*] 1 tab PO DAILY 07/09/23 Apixaban [Eliquis *] 1 tab PO BID 07/09/23 Calcium Carbonate/Vitamin D3 [Caltrate 600 Plus D3 Tablet] 1 tab PO DAILY 07/09/23 Digoxin 1 tab PO DAILY 07/09/23 Furosemide 1 tab PO DAILY 07/09/23 Glipizide [Glipizide Xl] 1 tab PO DIRECTED 07/09/23 Hydrocortisone [Cortef*] 2 tab PO DAILY 07/09/23 Levothyroxine Sodium 1 tab PO DAILY 07/09/23 Levothyroxine [Synthroid*] 2 tab PO DIRECTED 07/09/23 Metformin HCl [Glucophage*] 1 tab PO DAILY 07/09/23 Pen Injector Device [Humatropen] 0.3 mg SQ DAILY 07/09/23 Potassium Chloride 2 tab PO DAILY 07/09/23 Tramadol HCl [Ultram] 1 tab PO Q6HR 07/09/23 clonazePAM [Clonazepam] 0.5 mg PO BEDTIME PRN 07/09/23 - Past Medical/Surgical History Diabetic: Yes -: Diabetes mellitus type 2 insulin dependent -: CVA 2012 -: HTN -: Anxiety -: Hyperlipidemia -: GERD with history of GI bleed -: Hypothyroidism -: Chronic anti coagulation with Eliquis -: atrial fibrillation -: Chronic steroids -: Adrenal insufficiency -: Hyperlipidemia -: hysterectomy -: bradley carpal tunnel sx -: L lumpectomy -: brain tumor removed- benign -: pituitary gland removal -: appendectomy Psychosocial/ Personal History: The patient is . She has 5 children. She does not work. - Family History Mother Medical History: Heart disease, Hypertension Notes: of heart attack Father Medical History: Heart disease Notes: of heart attack - Social History Smoking Status: Never smoker Alcohol use: No CD- Drugs: No Caffeine use: Yes Review of Systems 10-point ROS is otherwise unremarkable Physical Examination - Vital Signs Temperature: 99 F (reviewed) - Physical Exam General: Alert, In no apparent distress, Oriented x3 HEENT: Atraumatic, PERRLA, Mucous membr. moist/pink, EOMI, Sclerae nonicteric Neck: Supple, 2+ carotid pulse no bruit, No LAD, Without JVD or thyroid abnormality Respiratory: Clear to auscultation bilaterally, Normal air movement Cardiovascular: Regular rate/rhythm, Normal S1 S2, No murmurs Gastrointestinal: Normal bowel sounds, Soft and benign, Non-distended, No tenderness Musculoskeletal: No clubbing, No swelling, No tenderness Integumentary: No rashes Neurological: Normal gait, Normal speech, Normal strength at 5/5 x4 extr, Normal tone, Sensation intact, Cranial nerves 3-12 intact, Normal affect Lymphatics: No axilla or inguinal lymphadenopathy - Studies Laboratory Data (last 24 hrs) 11/04/23 11/04/23 10:49 10:49 WBC 6.00 Hgb 14.3 Hct 42.8 Plt Count 138 L Sodium 141 Potassium 3.1 L BUN 16 Creatinine 1.33 H Glucose 101 Total Bilirubin 0.9 AST 10 L ALT 14 Alkaline Phosphatase 70 Lipase 22 Assessment & Plan - Problems (Diagnosis) (1) Avascular necrosis of hip Onset Date: 01/20/16 Current Visit: No Status: Acute (2) Closed right hip fracture Current Visit: No Status: Acute (3) Insufficiency adrenal cortex Current Visit: No Status: Acute (4) Paroxysmal atrial fibrillation Onset Date: 02/09/16 Current Visit: No Status: Acute (5) Anemia Onset Date: 01/31/15 Current Visit: No Status: Chronic Qualifiers: Anemia type: other cause Other causes of anemia: chronic disease, other Qualified Code(s): D63.8 - Anemia in other chronic diseases classified elsewhere (6) Atrial fibrillation Current Visit: No Status: Chronic Qualifiers: Atrial fibrillation type: paroxysmal Qualified Code(s): I48.0 - Paroxysmal atrial fibrillation (7) CHF (congestive heart failure) Current Visit: No Status: Chronic Qualifiers: (8) Diabetes mellitus Current Visit: No Status: Chronic Qualifiers: Diabetes mellitus type: type 2 Diabetes mellitus intermediate insulin use: with intermediate use Diabetes mellitus complication status: with hyperglycemia Qualified Code(s): E11.65 - Type 2 diabetes mellitus with hyperglycemia; Z79.4 - prison (current) use of insulin (9) Diverticulosis Onset Date: 03/13/15 Current Visit: No Status: Chronic (10) Hyperlipidemia Current Visit: No Status: Chronic Qualifiers: Hyperlipidemia type: unspecified Qualified Code(s): E78.5 - Hyperlipidemia, unspecified (11) Hypertension Current Visit: No Status: Chronic Qualifiers: Hypertension type: primary hypertension Qualified Code(s): I10 - Essential (primary) hypertension (12) Hypothyroidism (acquired) Current Visit: No Status: Chronic (13) Intractable nausea and vomiting Current Visit: Yes Status: Acute (14) Diarrhea Current Visit: Yes Status: Acute (15) RENATA (acute kidney injury) Current Visit: Yes Status: Acute - Plan Plan: 1. Continue with IV fluids 2. Continue with antiemetics 3. IV steroids 4. IV antibiotics 5. Strict blood pressure and blood sugar control 6. Physical therapy 7. Monitor electrolytes closely 8. GI DVT prophylaxis Discharge Plan: Home Plan to discharge in: [facility] than 2 days - Advance Directives Does patient have a Living Will: Yes Does patient have a Durable POA for Healthcare: Yes - Code Status/Comfort Care Code Status Assessed: Yes Code Status: Full Code Critical Care: No Time Spent Managing PTS Care (In Minutes): 45
[2023-07-09] MEDS: FENTANYL CITR 100 MCG/2 ML IV PRN ×3 (15:13→23:13)
[2023-07-09] MEDS ORDERED: FENTANYL CITR 100 MCG/2 ML ONE (15:20)
[2023-07-09] MEDS: NA CHLORIDE 0.9% 1,000 ML IV SCH (15:34)
[2023-07-09 15:56] VITALS: BMI 25.4
[2023-07-09] MEDS: METRONIDAZOLE 500mg IVPB 500 MG/100 ML BAG IV SCH (16:02)
[2023-07-09] MEDS: ONDANSETRON 4 MG/2 ML VIAL IV PRN ×2 (16:56→20:56)
[2023-07-09] MEDS: HYOSCYAMINE SULF 0.125 MG TAB PO PRN (16:59)
[2023-07-09] MEDS: METHYLPREDNISOLONE 40 MG INJ IV SCH (18:28)
[2023-07-09] MEDS: ACETAMINOPHEN 500 MG TAB PO PRN (20:56)
[2023-07-09] MEDS: PANTOPRAZOLE 40 MG INJ IVP SCH (21:44)
[2023-07-10] MEDS: METHYLPREDNISOLONE 40 MG INJ IV SCH ×4 (00:06→17:58)
[2023-07-10] MEDS: METRONIDAZOLE 500mg IVPB 500 MG/100 ML BAG IV SCH ×3 (00:07→18:01)
[2023-07-10] MEDS: NA CHLORIDE 0.9% 1,000 ML IV SCH ×3 (00:08→21:57)
[2023-07-10] MEDS: ONDANSETRON 4 MG/2 ML VIAL IV PRN (02:17)
[2023-07-10] MEDS: FENTANYL CITR 100 MCG/2 ML IV PRN ×4 (02:17→14:30)
[2023-07-10 03:16] LABS: Absolute Lymphocytes (CBC) 0.3 K/uL (0.7-4.9); Hematocrit 46.1 % (36.0-45.0); Lymphocytes % 6.1 % (15.3-44.8); MCV 92.8 fL (80-100); MPV 8.9 fL (7.6-11.3); Platelets 128 thou/uL (152-406); RBC Red Blood Cell Count 4.97 M/uL (3.86-4.86)
[2023-07-10 03:38] LABS: Albumin 2.8 g/dL (3.4-5.0); Bilirubin Total 0.7 mg/dL (0.2-1.0); Potassium 3.9 mEq/L (3.5-5.1); Protein, Total 6.8 g/dL (6.4-8.2)
[2023-07-10 03:48] LABS: Magnesium 1.2 mg/dL (1.6-2.4); Thyroid Stimulating Hormone < 0.005 uIU/mL (0.358-3.740)
[2023-07-10] MEDS ORDERED: PNEUMOCOCCAL VACCINE 0.5 ML IMVAC ONE (09:00)
[2023-07-10] MEDS: PANTOPRAZOLE 40 MG INJ IVP SCH ×2 (09:04→20:03)
[2023-07-10] MEDS: HYOSCYAMINE SULF 0.125 MG TAB PO PRN (20:03)
[2023-07-10 23:42] VITALS: O2SAT 96
[2023-07-11] MEDS: METRONIDAZOLE 500mg IVPB 500 MG/100 ML BAG IV SCH ×2 (00:04→08:35)
[2023-07-11] MEDS: METHYLPREDNISOLONE 40 MG INJ IV SCH ×2 (00:04→05:32)
[2023-07-11] MEDS: ACETAMINOPHEN 500 MG TAB PO PRN (00:08)
[2023-07-11] MEDS: FENTANYL CITR 100 MCG/2 ML IV PRN (05:56)
[2023-07-11] MEDS ORDERED: clonazePAM 0.5 MG TAB PO PRN (06:25)
[2023-07-11] MEDS: NA CHLORIDE 0.9% 1,000 ML IV SCH (06:49)
[2023-07-11] MEDS ORDERED: LEVOTHYROXINE SOD 0.1 MG TAB PO SCH (07:30)
[2023-07-11 07:44] LABS: Absolute Lymphocytes (CBC) 0.5 K/uL (0.7-4.9); Hematocrit 35.8 % (36.0-45.0); Lymphocytes % 4.8 % (15.3-44.8); MCV 92.7 fL (80-100); Platelets 122 thou/uL (152-406); RBC Red Blood Cell Count 3.87 M/uL (3.86-4.86)
[2023-07-11 08:16] LABS: AST/SGOT 9 U/L (15-37); Albumin 2.4 g/dL (3.4-5.0); Alkaline Phosphatase 49 U/L (45-117); BUN Blood Urea Nitrogen 26 mg/dL (7-18); Bicarbonate 22 mEq/L (21-32); Bilirubin Total 0.5 mg/dL (0.2-1.0); Glomerular Filtration Rate 35 ml/min (=/>90); Glucose Level 142 mg/dL (74-106); Magnesium 1.5 mg/dL (1.6-2.4); Potassium 3.5 mEq/L (3.5-5.1); Protein, Total 5.4 g/dL (6.4-8.2); Sodium Level 145 mEq/L (136-145)
[2023-07-11 08:20] LABS: ALT/SGPT < 10 U/L (13-56)
[2023-07-11] MEDS: PANTOPRAZOLE 40 MG INJ IVP SCH (08:28)
[2023-07-11 08:43] VITALS: BP 138/61; TEMP 97.1
[2023-07-11] MEDS ORDERED: APIXABAN 2.5 MG TABLET PO SCH (09:00)
[2023-07-11] MEDS ORDERED: GLIPIZIDE S.A. 5 MG TAB PO SCH (09:00)
[2023-07-11] MEDS ORDERED: HYDROCORTISONE 10 MG TAB PO SCH (09:00)
[2023-07-11] MEDS ORDERED: AMIODARONE HCL 200 MG TAB PO SCH (09:00)
--- NOTE | 2023-07-11 09:07 | P.PN ---
Subjective Date of Service: 07/11/23 Chief Complaint: Intractable nausea and vomiting and diarrhea Subjective: No new changes Physical Examination - Vital Signs Temperature: 97.1 F Blood Pressure: 138/61 Pulse: 71 Respirations: 16 Pulse Ox (%): 98 - Physical Exam General: Alert, Oriented x3 HEENT: Atraumatic Neck: Supple Respiratory: Normal air movement Cardiovascular: Regular rate/rhythm, Normal S1 S2 Gastrointestinal: Soft and benign Musculoskeletal: No swelling Neurological: Normal speech, Normal strength at 5/5 x4 extr Assessment And Plan - Plan Assessment & Plan - Problems (Diagnosis) (1) Avascular necrosis of hip Onset Date: 01/20/16 Current Visit: No Status: Acute (2) Closed right hip fracture Current Visit: No Status: Acute (3) Insufficiency adrenal cortex Current Visit: No Status: Acute (4) Paroxysmal atrial fibrillation Onset Date: 02/09/16 Current Visit: No Status: Acute (5) Anemia Onset Date: 01/31/15 Current Visit: No Status: Chronic Qualifiers: Anemia type: other cause Other causes of anemia: chronic disease, other Qualified Code(s): D63.8 - Anemia in other chronic diseases classified elsewhere (6) Atrial fibrillation Current Visit: No Status: Chronic Qualifiers: Atrial fibrillation type: paroxysmal Qualified Code(s): I48.0 - Paroxysmal atrial fibrillation (7) CHF (congestive heart failure) Current Visit: No Status: Chronic Qualifiers: (8) Diabetes mellitus Current Visit: No Status: Chronic Qualifiers: Diabetes mellitus type: type 2 Diabetes mellitus prison insulin use: with prison use Diabetes mellitus complication status: with hyperglycemia Qualified Code(s): E11.65 - Type 2 diabetes mellitus with hyperglycemia; Z79.4 - snf (current) use of insulin (9) Diverticulosis Onset Date: 03/13/15 Current Visit: No Status: Chronic (10) Hyperlipidemia Current Visit: No Status: Chronic Qualifiers: Hyperlipidemia type: unspecified Qualified Code(s): E78.5 - Hyperlipidemia, unspecified (11) Hypertension Current Visit: No Status: Chronic Qualifiers: Hypertension type: primary hypertension Qualified Code(s): I10 - Essential (primary) hypertension (12) Hypothyroidism (acquired) Current Visit: No Status: Chronic (13) Intractable nausea and vomiting Current Visit: Yes Status: Acute (14) Diarrhea Current Visit: Yes Status: Acute (15) RENATA (acute kidney injury) Current Visit: Yes Status: Acute - Plan Plan: 1. Continue with IV fluids 2. Continue with antiemetics 3. IV steroids 4. IV antibiotics 5. Strict blood pressure and blood sugar control 6. Physical therapy 7. Monitor electrolytes closely 8. GI DVT prophylaxis Discharge Plan: Home Plan to discharge in: Greater than 2 days - Advance Directives Does patient have a Living Will: Yes Does patient have a Durable POA for Healthcare: Yes - Code Status/Comfort Care Code Status Assessed: Yes Code Status: Full Code Critical Care: No Time Spent Managing PTS Care (In Minutes): 45
[2023-07-11] MEDS ORDERED: TRAMADOL HCL 50 MG TAB PO SCH (12:00)
--- NOTE | 2023-07-11 14:28 | P.DS ---
Admission Date: 07/09/23 Discharge Date: 07/11/23 Disposition: ROUTINE DISCHARGE Discharge Condition: GOOD Reason for Admission: Intractable nausea and vomiting and diarrhea Brief History of Present Illness: 2-year-old female patient with medical history significant for type 2 diabetes, hypertension, hyperlipidemia, history of chronic atrial fibrillation on anticoagulation was evaluated for episode of nausea with vomiting and diarrhea. She also had issues with elevated lactic acid and was found to be septic. She was admitted for inpatient care and was started on IV antibiotic therapy. Hospital Course: On admission, she was started on IV antibiotic therapy and IV fluid and also antiemetic medication. She also had loperamide given for episode of diarrhea. She responded well to therapy with improvement in symptoms and she was able to tolerate oral feeds today. I initially elevated lactic acid trended down to within normal limits with IV fluid and antibiotic therapy. She was deemed stable for discharge to continue with oral antibiotic therapy Flagyl for 5 days and to continue as needed loperamide for diarrhea management. She will also be on as needed Zofran. Vital Signs/Physical Exam: Temp Pulse Resp BP Pulse Ox 97.1 F 71 16 138/61 98 07/11/23 09:06 07/11/23 09:06 07/11/23 09:06 07/11/23 09:06 07/11/23 09:06 General: Alert, Oriented x3 HEENT: Atraumatic, Normocephalic Neck: Supple Respiratory: Normal air movement Cardiovascular: Regular rate/rhythm, Normal S1 S2 Gastrointestinal: Soft and benign Neurological: Normal speech, Normal strength at 5/5 x4 extr Laboratory Data at Discharge: WBC 9.70 thou/uL (4.3-10.9) 07/11/23 07:30 Hgb 12.1 g/dL (12.0-15.0) 07/11/23 07:30 Hct 35.8 % (36.0-45.0) L 07/11/23 07:30 Plt Count 122 thou/uL (152-406) L 07/11/23 07:30 Sodium 145 mEq/L (136-145) 07/11/23 07:30 Potassium 3.5 mEq/L (3.5-5.1) 07/11/23 07:30 BUN 26 mg/dL (7-18) H 07/11/23 07:30 Creatinine 1.46 mg/dL (0.55-1.02) H 07/11/23 07:30 Glucose 142 mg/dL (74-106) H 07/11/23 07:30 Magnesium 1.5 mg/dL (1.6-2.4) L 07/11/23 07:30 Total Bilirubin 0.5 mg/dL (0.2-1.0) 07/11/23 07:30 AST 9 U/L (15-37) L 07/11/23 07:30 ALT < 10 U/L (13-56) L 07/11/23 07:30 Alkaline Phosphatase 49 U/L (45-117) 07/11/23 07:30 Triglycerides 177 mg/dL (<150) H 07/10/23 03:01 Cholesterol 141 mg/dL (<200) 07/10/23 03:01 HDL Cholesterol 42 mg/dL (40-60) 07/10/23 03:01 Cholesterol/HDL Ratio 3.36 07/10/23 03:01 Lipase 22 U/L (13-75) 07/09/23 10:49 Home Medications: Atorvastatin Calcium [Lipitor*] 20 mg PO BEDTIME 12/11/21 Amiodarone HCl [Cordarone*] 1 tab PO DAILY 07/09/23 Apixaban [Eliquis *] 1 tab PO BID 07/09/23 Calcium Carbonate/Vitamin D3 [Caltrate 600 Plus D3 Tablet] 1 tab PO DAILY 07/09/23 Digoxin 1 tab PO DAILY 07/09/23 Furosemide 1 tab PO DAILY 07/09/23 Glipizide [Glipizide Xl] 1 tab PO DIRECTED 07/09/23 Hydrocortisone [Cortef*] 2 tab PO DAILY 07/09/23 Levothyroxine Sodium 1 tab PO DAILY 07/09/23 Levothyroxine [Synthroid*] 2 tab PO DIRECTED 07/09/23 Metformin HCl [Glucophage*] 1 tab PO DAILY 07/09/23 Pen Injector Device [Humatropen] 0.3 mg SQ DAILY 07/09/23 Potassium Chloride 2 tab PO DAILY 07/09/23 Tramadol HCl [Ultram] 1 tab PO Q6HR 07/09/23 clonazePAM [Clonazepam] 0.5 mg PO BEDTIME PRN 07/09/23 Loperamide [Imodium*] 2 mg PO DAILY PRN #6 cap 11/06/23 metroNIDAZOLE [Flagyl] 500 mg PO TID #15 07/11/23 New Medications: metroNIDAZOLE [Flagyl] 500 mg PO TID #15 Loperamide [Imodium*] 2 mg PO DAILY PRN #6 cap PRN Reason: Diarrhea Diet: ADA Activity: Ad akiko Followup: NONE,NONE [Primary Care Provider] -
[2023-07-11] MEDS ORDERED: ATORVASTATIN 20 MG TAB PO SCH (21:00)
--- NOTE | 2023-07-12 02:02 | P.PN ---
Subjective Date of Service: 07/10/23 Subjective: No new changes, No C/O voiced, Improving Review of Systems 10-point ROS is otherwise unremarkable Physical Examination - Vital Signs Temperature: 97.1 F Blood Pressure: 138/61 Pulse: 71 Respirations: 16 Pulse Ox (%): 98 - Physical Exam General: Alert, In no apparent distress HEENT: Atraumatic, PERRLA, EOMI Neck: Supple, JVD not distended Respiratory: Clear to auscultation bilaterally, Normal air movement Cardiovascular: Regular rate/rhythm, Normal S1 S2 Gastrointestinal: Normal bowel sounds, No tenderness Musculoskeletal: No tenderness Integumentary: No rashes Neurological: Normal speech, Normal tone, Normal affect Lymphatics: No axilla or inguinal lymphadenopathy - Studies Medications List Reviewed: Yes Assessment & Plan - Problems (Diagnosis) (1) Avascular necrosis of hip Onset Date: 01/20/16 Status: Acute (2) Closed right hip fracture Status: Acute (3) Insufficiency adrenal cortex Status: Acute (4) Paroxysmal atrial fibrillation Onset Date: 02/09/16 Status: Acute (5) Anemia Onset Date: 01/31/15 Status: Chronic Qualifiers: Anemia type: other cause Other causes of anemia: chronic disease, other Qualified Code(s): D63.8 - Anemia in other chronic diseases classified elsewhere (6) Atrial fibrillation Status: Chronic Qualifiers: Atrial fibrillation type: paroxysmal Qualified Code(s): I48.0 - Paroxysmal atrial fibrillation (7) CHF (congestive heart failure) Status: Chronic Qualifiers: (8) Diabetes mellitus Status: Chronic Qualifiers: Diabetes mellitus type: type 2 Diabetes mellitus group home insulin use: with [employer] continuous churn use Diabetes mellitus complication status: with hyperglycemia Qualified Code(s): E11.65 - Type 2 diabetes mellitus with hyperglycemia; Z79.4 - penitentiary (current) use of insulin (9) Diverticulosis Onset Date: 03/13/15 Status: Chronic (10) Hyperlipidemia Status: Chronic Qualifiers: Hyperlipidemia type: unspecified Qualified Code(s): E78.5 - Hyperlipidemia, unspecified (11) Hypertension Status: Chronic Qualifiers: Hypertension type: primary hypertension Qualified Code(s): I10 - Essential (primary) hypertension (12) Hypothyroidism (acquired) Status: Chronic (13) Intractable nausea and vomiting Status: Acute (14) Diarrhea Status: Acute (15) RENATA (acute kidney injury) Status: Acute - Plan Plan: 1. Continue with IV fluids 2. Continue with antiemetics 3. IV steroids 4. IV antibiotics 5. Strict blood pressure and blood sugar control 6. Physical therapy 7. Monitor electrolytes closely 8. GI DVT prophylaxis Discharge Plan: Home Plan to discharge in: 24 Hours - Advance Directives Does patient have a Living Will: Yes Does patient have a Durable POA for Healthcare: Yes - Code Status/Comfort Care Code Status: Full Code Critical Care: No Time Spent Managing PTS Care (In Minutes): 35
== END 2023-07-11 16:34 | disposition home health service (06) ==
LOC: ER 10:08 → ERHOLD 14:27 → 2ND 15:01
PROVIDERS: ADMIT Hospitalist; ATTEND Hospitalist
DX: R11.2 Nausea with vomiting, unspecified (principal); R19.7 Diarrhea, unspecified; R10.9 Unspecified abdominal pain; I10 Essential (primary) hypertension; E11.9 Type 2 diabetes mellitus without complications; E03.9 Hypothyroidism, unspecified; D63.8 Anemia in other chronic diseases classified elsewhere; I48.0 Paroxysmal atrial fibrillation; E27.40 Unspecified adrenocortical insufficiency; E11.65 Type 2 diabetes mellitus with hyperglycemia; I50.9 Heart failure, unspecified; K57.90 Diverticulosis of intestine, part unspecified, without perforation or abscess without bleeding; N17.9 Acute kidney failure, unspecified; S72.001A Fracture of unspecified part of neck of right femur, initial encounter for closed fracture; X58.XXXA Exposure to other specified factors, initial encounter; M87.059 Idiopathic aseptic necrosis of unspecified femur; Z88.1 Allergy status to other antibiotic agents; Z88.8 Allergy status to other drugs, medicaments and biological substances; Z91.011 Allergy to milk products; Z79.890 Hormone replacement therapy
CPT/HCPCS: 93005; 85025 ×3; 81001; 36415 ×2; 83735 ×2; 83615; 80061; 80162; 83605 ×3; 84443; 84484 ×3; 84439; 83690; 80053 ×3; 82533; 86140; 74177; 97116; 97161; 97530; 96375; 96374; 99285; Q9967; C9113 ×4; J3010 ×8; J2270; J2405 ×4; J7030 ×6; J2920 ×7; G0378 ×4

== ENCOUNTER 2023-07-16 13:59 | Emergency (ER) | payer OTHER ==
--- OUTSIDE RECORDS SUMMARY | 2023-07-16 14:13 | XMS REPORT | Continuity of Care Document ---
:1940 Author Organization [facility] t Address [address] [facility] [address] [place] [address] Care Team Providers Name Role Phone Asked, No Pcp Primary Care Physician Unavailable AVIS BAKER, AVIS Attending Clinician Unavailable [id number] Attending Clinician Unavailable Kemar Hall Attending Clinician Unavailable Chel Valdez Attending Clinician Unavailable Dany Iraheta Attending Clinician Unavailable JOSY EDGE Attending Clinician Unavailable JASON Attending Clinician Unavailable Barry Pack MD Attending Clinician Ree Tolbert Attending Clinician MARYSOL NGUYEN Attending Clinician Unavailable Doctor Unassigned, Rafael Gonzalez Attending Clinician Unavailable Lynne Foster Attending Clinician Bonifacio STRATTON, Jose Eduardo Attending Clinician [phone] [facility] Attending Clinician Unavailable Pamela Terry DO Attending Clinician Lucero DONALD, Chelsey Attending Clinician Unavailable Kunal STRATTON, Josy Attending Clinician Zach FAROOQ, Avtar Attending Clinician Kadeem DONALD, Todd Bates Attending Clinician Unavailable RAINE ZAYAS Attending Clinician Unavailable Hernando STRATTON, Latoya Duff Attending Clinician Abril STRATTON, Fabriizo Ortiz Attending Clinician Omar STRATTON, Matt Ghosh Attending Clinician Chana STRATTON, Raine Zimmer Attending Clinician Kylie STRATTON, Jai Attending Clinician [phone] Ervin, Chase Attending Clinician Katelynn STRATTON, Felipe Tejada Attending Clinician Jay STRATTON, Bela Attending Clinician Edith STRATTON, Rio Attending Clinician Walter STRATTON, Aiadn Attending Clinician YOAV DEL ROSARIO Attending Clinician Unavailable LUIZ VILLA Attending Clinician Unavailable RANCHO SANDOVAL Attending Clinician Unavailable SAMUEL, AVIS, AVIS Admitting Clinician Unavailable [id number] Admitting Clinician Unavailable JOSY EGDE Admitting Clinician Unavailable ERICKSON_R Admitting Clinician Unavailable Kunal STRATTON, Josy Admitting Clinician RAINE ZAYAS Admitting Clinician Unavailable Chana STRATTON, Raine Zimmer Admitting Clinician LUIZ VILLA Admitting Clinician Unavailable RANCHO SANDOVAL Admitting Clinician Unavailable Payers Payer Name Policy Type Policy Number Effective Date Expiration Source Date AETNA MEDICARE PPO [id number] 2022 00:00:00 AETM AETM [id number] MEDICARE PART A \\T\\ B [id number] 2003 00:00:00 AETNA (MEDICARE [id number] 2022 REPLACEMENT PPO) 00:00:00 [place]IC[place] B-[place]: [id number] 2003 [employer]IONS 00:00:00 AETNA [id number] 2000 00:00:00 MEDICAREMEDICARE A [id number] [id number] AETNA - MGD CAREAETNA [id number] [address] INDEMNITY NON 00:00:00 [place]ie [id number] Med ical 14-[facility] Problems Condition Condition Condition Status Onset Resolution Last Treating Co mments Source Name Details Category Date Date Treatment Clinician Date 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 Dual 05-24 Comm uni energy Energy 00:00: ty X-ray X-ray 00 [facility] photon Photon l absorptiom Absorptiom Cl inics etry scan etry Scan result Result osteoporot Osteoporot ic ic Chronic Chronic Problem Active [facility] anemia Anemia 03-29 Communi 00:00: ty 00 [facility] Insomnia Insomnia Problem Active S[facility] y 03-29 Communi 00:00: ty 00 [facility] Low back Low Back Problem Active [facility] pain Pain 03-18 Communi 00:00: ty 00 [facility] Chronic Chronic Problem Active [facility] insomnia Insomnia 714 Commun i 00:00: ty 00 [facility] Open Open Disease Active [place] fracture fracture 208 [facility] of 00:00: proximal proximal 00 end of end of right right tibia with tibia with routine routine healing healing Recurrent Recurrent Problem Active [facility] urinary Urinary 2-28 Communi tract Tract 00:00: ty infection Infection 00 Hosp meryl [facility] Nutritiona Nutritiona Problem Active S weeny l disorder l Disorder 1-24 Co mmuni 00:00: ty 00 [facility] Pressure Pressure Problem Active [facility] injury of Injury of 8-24 Comm uni buttock Buttock 00:00: ty 00 [facility] Hypokalemi Hypokalemi Problem Active S [facility]y a a 8-09 Communi 00:00: ty 00 [facility] Recurrent Recurrent Disease Active Uni vers acute deep acute deep 7 it y of vein vein 00:00: [place] [...] mmuni erosis in erosis in 00:00: ty [place] 00 Hospita artery Artery l Clinics Paroxysmal [...] Hospita l Clinics Palpitatio Palpitatio Problem Active 2020-0 S weeny ns ns 8-19 Communi 00:00: ty 00 [facility] Malignant Malignant Problem Active 2020-0 [facility] tumor of Tumor of 1-07 Commun i pituitary Pituitary 00:00: ty gland Gland 00 [facility] Hypothyroi Hypothyroi Problem Active 2020-0 S [facility]eny dism dism 1-07 Communi 00:00: ty 00 [facility] Type 2 Type 2 Problem Active 2020-0 [facility] diabetes Diabetes 1-07 Commun i mellitus Mellitus 00:00: ty 00 [facility] Diabetic Diabetic Problem Active 2020-0 [facility] peripheral Peripheral 1-07 Co mmuni neuropathy Neuropathy 00:00: ty 00 [facility] 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 [facility] hyperchole Hyperchole 1-07 Co mmuni sterolemia sterolemia 00:00: ty and and 00 [facility] hypertrigl Hypertrigl l yceridemia yceridemia Cl inics Anxiety Anxiety Problem Active 2020-0 [facility] 1-07 Communi 00:00: ty 00 [facility] Carpal Carpal Problem Active 2020-0 [facility] tunnel 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 00:00: ty 00 [facility] Neuropathy Neuropathy Problem Active 2020-0 S weeny 1-07 Communi 00:00: ty 00 [facility] Hypertensi Hypertensi Problem Active 2020-0 S weeny ve ve 1-07 Communi disorder Disorder 00:00: ty 00 [facility] Chronic Chronic Problem Active 2020-0 [facility] atrial Atrial 1-07 Communi fibrillati Fibrillati 00:00: ty on [facility] Deep Deep Problem Active 2020-0 [facility] venous Venous 1-07 Communi thrombosis Thrombosis 00:00: ty 00 [facility] Lymphedema Lymphedema Problem Active 2020-0 S weeny 1-07 Communi 00:00: ty 00 [facility] Gastroesop Gastroesop Problem Active 2020-0 S weeny hageal hageal 1-07 Communi reflux Reflux 00:00: ty disease Disease 00 [facility] History of History of Problem Active 2020-0 S weeny malignant Malignant 1-07 Comm uni neoplasm Neoplasm 00:00: ty of breast of Breast 00 [facility] meryl [facility] Sepsis Sepsis Disease Recurre 2018-[address] [facility] [facility] Paroxysmal Paroxysmal Disease Recurre [facility] A-fib A-fib [facility] 01-14 [facility] 00 [place] Pancreatit Pancreatit Disease Active [facility] is is 01-14 [facility]: [facility] 00 [place] Chest pain Chest pain Disease Active U [...] 5-12 bleeding [facility] es nce 00:[facility]: Medical Center Cipro Allergy Active [facility] PENICILL Allergy Active [facility] INS to [facility] Xarelto Allergy Active [facility] Family History Family Member Diagnosis Comments Start Date Stop Date Source Natural father Coronary Heart [facility] Natural father Heart disease [facility] Natural mother Coronary Heart [facility] Natural mother Heart disease [facility] Natural sister Heart [facility] Social History Social Habit Start Date Stop Date Quantity Comments Source Sexual orientation [facility] Gender identity [facility] Exposure to 2022-12-20 2022-12-[address] [facility] SARS-CoV-2 (event) 00:00:00 10:11:00 Alcohol intake 2018-11-09 2018-11-[address] [facility] es 00:00:00 00:00:00 non-drinker of Medical nter alcohol (finding) Tobacco use and 2018-03-13 2018-03-[address] [facility] k[facility] exposure 00:00:00 00:00:00 tobacco non-user [facility] Sex Assigned At [address] [facility] 00:00:00 00:00:00 Medical [place] Smoking Status Start Date Stop Date Source Tobacco smoking consumption [facility] unknown Never smoker [facility] Medications Ordered Filled Start Stop Current Ordering Indication Dosage Frequency Signature Comments Components Source Medication Medication Date Date Medication? Clinician (SIG) Name Name marlin isaac 8 No ramisraeleon [facility] mg tablet mg tablet 8-28 8 mg Commu ni TAKE 1 TAKE 1 00:00: tablet ty TABLET BY TABLET BY 00 TAKE 1 [facility] MOUTH EVERY MOUTH EVERY TABLET BY l DAY DAY MOUTH Clinics EVERY DAY marlin 8 patrickeon 8 No ramelteon [facility] mg tablet mg tablet 8-28 8 mg Commu ni TAKE 1 TAKE 1 00:00: tablet ty TABLET BY TABLET BY 00 TAKE 1 [facility] MOUTH EVERY MOUTH EVERY TABLET BY l DAY DAY MOUTH Clinics EVERY DAY trazodone trazodone No trazodone [facility] 100 mg 100 mg 7-25 100 mg Communi tablet tablet 00:00: tablet ty 00 [facility] trazodone trazodone No trazodone [facility] 100 mg 100 mg 7-25 100 mg Communi tablet tablet 00:00: tablet ty 00 [facility] lidocaine lidocaine No Q1D lidocaine [facility] (PF) 50 (PF) 50 3-08 (PF) 50 Commun i mg/5 mL (1 mg/5 mL (1 11:26: mg/5 mL (1 ty %) %) 24 %) Hospita injection injection injection l syringeTake syringeTake syringeTak Clinics 2.1 mL 2.1 mL e 2.1 mL every day every day every day by by by injection injection injection route. route. route. ceftriaxone ceftriaxone No ceftriaxon [facility] 500 mg 500 mg 3-08 e 500 mg Communi solution solution 11:25: solution t y for for 40 for Hospita injectionTa injectionTa injectionT l ke 500 mg ke 500 mg anat 500 mg Clinics by by by injection injection injection route. route. route. lidocaine lidocaine No Q1D lidocaine [facility] (PF) 50 (PF) 50 3-04 (PF) 50 [...] days. 4 days. ceftriaxone ceftriaxone No ceftriaxon [facility] 500 mg 500 mg 3-04 e 500 mg Communi solution solution 11:31: solution t y for for 50 for Hospita injectionTa injectionTa injectionT l ke 500 mg ke 500 mg anat 500 mg Clinics by by by injection injection injection route. route. route. lidocaine lidocaine No Q1D lidocaine [facility] (PF) 50 (PF) 50 3-03 (PF) 50 [...] days. 4 days. ceftriaxone ceftriaxone No ceftriaxon [facility] 500 mg 500 mg 3-03 e 500 mg Communi solution solution 14:30: solution t y for for 22 for Hospita injectionTa injectionTa injectionT l ke 500 mg ke 500 mg anat 500 mg Clinics by by by injection injection injection route. route. route. ceftriaxone ceftriaxone No ceftriaxon [facility] 500 mg 500 mg 2-28 e 500 mg Communi solution solution 14:40: solution t y for for 23 for Hospita injectionTa injectionTa injectionT l ke 500 mg ke 500 mg anat 500 mg Clinics by by by injection injection injection route. route. route. lidocaine lidocaine No Q1D lidocaine [facility] (PF) 50 (PF) 50 2-28 (PF) 50 [...] for days. days. 4 days. isosorbide Yes [id number] 30mg Take 1 U nivers mononitrate 7-10 tablet by ity of 30 mg 24 hr 00:00: mouth [place] tablet 00 daily. Medical Branch levothyroxi Yes [id number] 112ug Take 1 Univers ne 112 mcg 7-10 tablet by ity of tablet 00:00: mouth [place] 00 every Medical morning. Branch hydrocortis Yes [id number] 40mg Take 2 Univers one 20 mg 7-10 tablets by ity of tablet 00:00: mouth [place] 00 every Medical morning. Branch isosorbide Yes [id number] 30mg Take 1 U nivers mononitrate 7-10 tablet by ity of 30 mg 24 hr 00:00: mouth [place] tablet 00 daily. Medical Branch levothyroxi Yes [id number] 112ug Take 1 Univers ne 112 mcg 7-10 tablet by ity of tablet 00:00: mouth [place] 00 every Medical morning. Branch hydrocortis Yes [id number] 40mg Take 2 Univers one 20 mg 7-10 tablets by ity of tablet 00:00: mouth [place] 00 every Medical morning. Branch losartan Yes 100mg Take 100 Univ ers (COZAAR) 7-09 mg by ity of 100 mg 18:04: mouth [place] tablet 43 daily. Medical Branch amLODIPine Yes 5mg Take 5 mg Un ezekiel (NORVASC) 5 7-09 by mouth ity of mg tablet 18:04: daily. Medical Branch CALCIUM Yes 1{tbl} Take 1 [...] mouth ity of mg tablet 18:04: daily. [place] 43 Medical Branch CALCIUM Yes 1{tbl} Take [...] 43 as needed. Medical Branch lipase-prot Yes [id number] 1{capsu Take 1 Univers ease-amylas 7- 107 le} capsule by it y of e 00:00: mouth 3 [place] 10,500-35,5 00 (three) Medic al 00- 61,500 times Branch unit daily with meals. polyethylen Yes [id number] 17g Take 1 Univers e glycol 7- Packet by ity of 3350 17 00:00: mouth 2 [place] gram powder 00 (two) Medical times Branch daily as needed for Constipati on. simethicone Yes [id number] 80mg Take 1 Univers 80 mg 7- tablet by ity of chewable 00:00: mouth 2 [place] tablet 00 (two) Medical times Branch daily as needed for Gas. somatropin Yes [id number] .2mg inject U nivers 0.2 mg/0.25 7-09 0.25 mL ity o f mL 00:00: under the [place] 00 skin Medical daily. Branch apixaban 5 Yes [id number] 5mg Take 1 Unive rs mg tablet 7- tablet by ity o f 00:00: mouth 2 [place] 00 (two) Medical times Branch daily. Indication s: atrial fibrillati on hydrocortis Yes [id number] 20mg Take 1 Univers one 20 mg 7- tablet by ity o f tablet 00:00: mouth [place] 00 every Medical evening. Branch mirtazapine Yes [id number] 15mg Take 1 Univers 15 mg 7-09 tablet by ity of tablet 00:00: mouth at [place] 00 bedtime. Medical Branch hydrocortis Yes [id number] 100mg 2 mL by Univers one sod 7-09 Intramuscu ity of succ 100 00:00: lar route [place] mg/2 mL 00 as needed Medical injection (As rescue Bran ch for low cortisol if there is low BP, N/V.). lipase-prot Yes [id number] 1{capsu Take 1 Univers ease-amylas 7- 107 le} capsule by it y of e 00:00: mouth 3 [place] 10,500-35,5 00 (three) Medic al 00- 61,500 times Branch unit daily with meals. polyethylen Yes [id number] 17g Take 1 Univers e glycol 03-13 Packet by ity of 3350 17 00:00: mouth 2 [place] gram powder 00 (two) Medical times Branch daily as needed for Constipati on. simethicone Yes [id number] 80mg Take 1 Univers 80 mg 03-13 tablet by ity of chewable 00:00: mouth 2 [place] tablet 00 (two) Medical times Branch daily as needed for Gas. somatropin Yes [id number] .2mg inject U nivers 0.2 mg/0.25 03-13 0.25 mL ity o f mL 00:00: under the [place] 00 skin Medical daily. Branch apixaban 5 Yes [id number] 5mg Take 1 Unive rs mg tablet 03-13 tablet by ity o f 00:00: mouth 2 [place] 00 (two) Medical times Branch daily. Indication s: atrial fibrillati on hydrocortis Yes [id number] 20mg Take 1 Univers one 20 mg 03-13 tablet by ity o f tablet 00:00: mouth [place] 00 every Medical evening. Branch mirtazapine Yes [id number] 15mg Take 1 Univers 15 mg 03-13 tablet by ity of tablet 00:00: mouth at [place] 00 bedtime. Medical Branch hydrocortis Yes [id number] 100mg 2 mL by Univers one sod 03-13 Intramuscu ity of succ 100 00:00: lar route [place] mg/2 mL 00 as needed Medical injection (As rescue Bran ch for low cortisol if there is low BP, N/V.). acetaminoph 2021- No [id number] 650mg Take 2 Univers en 325 mg 03-13 8 tablets by ity of tablet 00:00: 04:59 mouth [place] 00 :00 every 6 Medical (six) Branch hours as needed for Pain (scale 1-3). acetaminoph 2021- No [id number] 650mg Take 2 Univers en 325 mg [...] 00 every Medical evening. Branch cholecalcif Yes [id number] Take [facility], 3-07 50,000 [facility] vitamin D3, 12:12: Units by De dical 50,000 unit 28 mouth once Ce [...] 12:12: daily. Medical capsule 28 Center potassium 2018- Yes 10meq QD Take [address] [...] Medic al PnIj 28 Center cholecalcif Yes [id number] Take [facility], 3-07 50,000 [facility] vitamin D3, 12:12: Units by De dical 50,000 unit 28 mouth once Ce [...] 12:12: daily. Medical capsule 28 Center potassium 2019- Yes 10meq QD Take [address] [...] al PnIj 28 Center cholecalcif 2019-0 Yes [id number] [facility], 3-07 50,000 [facility] [...] al PnIj 28 Center cholecalcif 2019-0 Yes [id number] [facility], 3-07 50,000 [facility] [...] Medic al PnIj 28 Center cholecalcif Yes [id number] Take [facility], 3-07 50,000 [facility] [...] 12:12: daily. Medica l 28 Center omeprazole 0 Yes 40mg QD Take [address] (PRILOSEC) 3-07 by mouth [facility] 40 MG 12:12: daily. Medical capsule 28 Center potassium 2019- Yes 10meq QD Take [address] [...] al PnIj 28 Center cholecalcif 2019-0 Yes [id number] Take [facility], 3-07 50,000 [facility] [...] 12:12: daily. Medical capsule 28 Center potassium 2018- Yes 10meq QD Take [address] [...] al PnIj 28 Center cholecalcif 0 Yes [id number] Take [facility], 3-07 50,000 [facility] [...] 12:12: daily. Medical capsule 28 Center potassium 2019- Yes 10meq QD Take [address] [...] Medic al PnIj 28 Center cholecalcif Yes [id number] Take [facility], 3-07 50,000 [facility] vitamin D3, 12:12: Units by De dical 50,000 unit 28 mouth once Ce [...] FORTE) 5 MG 27 Center tablet levothyroxi 0 Yes hypothyroid 125ug Take [address] ne 3-07 ism mcg by [facility] (SYNTHROID, 12:12: mouth Medic al LEVOTHROID) 27 Every Center 125 MCG morning on tablet an empty stomach. amLODIPine 2019-0 Yes 5mg QD Take [address] (NORVASC) 5 3-07 by mouth Luke s MG tablet 12:12: daily. Medica l 27 [place] losartan 0 Yes 100mg QD Take 100 [...] MG tablet 12:12: daily. Medica l 27 [place] losartan 0 Yes 100mg QD Take [address] (COZAAR) 3-07 mg by [facility] 100 MG 12:12: mouth Medical tablet 27 daily. Center methscopola 2019-0 Yes 5mg QD Take [address] mine 3-07 by mouth [facility] (PAMINE 12:12: nightly. Medica l FORTE) 5 MG 27 Center tablet levothyroxi 0 Yes hypothyroid 125ug Take [address] [...] FORTE) 5 MG 27 Center tablet levothyroxi 0 Yes hypothyroid 125ug Take [address] ne 3-07 ism mcg by [facility] (SYNTHROID, 12:12: mouth Medic al LEVOTHROID) 27 Every Center 125 MCG morning on tablet an empty stomach. amLODIPine [id number] Yes 5mg QD Take 5 mg CH [...] FORTE) 5 MG 27 Center tablet levothyroxi 0 Yes hypothyroid 125ug Take [address] [...] FORTE) 5 MG 27 Center tablet levothyroxi 0 Yes hypothyroid 125ug Take [address] [...] 00:00: mouth Medical tablet 00 daily . [facility] warfarin 2018-0 Yes 2.5mg QD Take 2.[address] (COUMADIN) 4-25 mg by [facility] 2.5 MG 00:00: mouth Medical tablet 00 daily . [place] warfarin 2018-0 Yes 2.5mg QD Take 2.[address] (COUMADIN) 4-25 mg by [facility] 2.5 MG 00:00: mouth Medical tablet 00 daily . [place] warfarin 2018-0 Yes 2.5mg QD Take 2.[address] (COUMADIN) 4-25 mg by [facility]ukes 2.5 MG 00:00: mouth Medical tablet 00 daily . [place] warfarin 2018-0 Yes 2.5mg QD Take 2.[address] (COUMADIN) 4-25 mg by [facility]ukes 2.5 MG 00:00: mouth Medical tablet 00 daily . [place] warfarin 2018-0 Yes 2.5mg QD Take 2.5 [...] daily . Center gabapentin 2018-0 Yes 600mg Q.[id number] Take [address] (NEURONTIN) 4-16 [id number] mg by L ukes 600 MG 00:00: 3D mouth 3 Medical tablet 00 (three) Center times daily . gabapentin 2018-0 Yes 600mg Q.[id number] Take [address] (NEURONTIN) 4-16 [id number] mg by L ukes 600 MG 00:00: 3D mouth 3 Medical tablet 00 (three) Center times daily . gabapentin 2018-0 Yes 600mg Q.[id number] Take [address] (NEURONTIN) 4-16 [id number] mg by L ukes 600 MG 00:00: 3D mouth 3 Medical tablet 00 (three) Center times daily . gabapentin 2018-0 Yes 600mg Q.[id number] Take [address] (NEURONTIN) 4-16 [id number] mg by L ukes 600 MG 00:00: 3D mouth 3 Medical tablet 00 (three) Center times daily . gabapentin 2018-0 Yes 600mg Q.[id number] Take [address] (NEURONTIN) 4-16 [id number] mg by L ukes 600 MG 00:00: 3D mouth 3 Medical tablet 00 (three) Center times daily . gabapentin 2018-0 Yes 600mg Q.[id number] Take [address] (NEURONTIN) 4-16 [id number] mg by L ukes 600 MG 00:00: 3D mouth 3 Medical tablet 00 (three) Center times daily . gabapentin 2018-0 Yes 600mg Q.[id number] Take [address] (NEURONTIN) 4-16 [id number] mg by L ukes 600 MG 00:00: 3D mouth 3 Medical tablet 00 (three) Center times daily . gabapentin 2018-0 Yes 600mg Q.[id number] Take [address] (NEURONTIN) 4-16 [id number] mg by L ukes 600 MG 00:00: 3D mouth 3 Medical tablet 00 (three) Center times daily . liothyronin 2018-0 Yes 5ug QD Take [address] [facility] e (CYTOMEL) 3-21 by mouth Luke s 5 MCG 00:00: daily . Medical tablet 00 [place] liothyronin 2018-0 Yes 5ug QD Take [address] [facility] e (CYTOMEL) 3-21 by mouth Luke s 5 MCG 00:00: daily . Medical tablet 00 [place] liothyronin 2018-0 Yes 5ug QD Take [address] [facility] e (CYTOMEL) 3-21 by mouth Luke s 5 MCG 00:00: daily . Medical tablet 00 [place] liothyronin 2018-0 Yes 5ug QD Take [address] [facility] e (CYTOMEL) 3-21 by mouth Luke s 5 MCG 00:00: daily . Medical tablet [address] [place] [address] liothyronin 2018-0 Yes 5ug QD Take [address] e (CYTOMEL) 3-21 by mouth Luke s 5 MCG 00:00: daily . Medical tablet [address] [place] [address] liothyronin 2018-0 Yes 5ug QD Take [address] e (CYTOMEL) 3-21 by mouth Luke s 5 MCG 00:00: daily . Medical tablet [address] [place] [address] liothyronin 2018-0 Yes 5ug QD Take [address] e (CYTOMEL) 3-21 by mouth Luke s 5 MCG 00:00: daily . Medical tablet 00 [place] liothyronin 2018-0 Yes 5ug QD Take [address] e (CYTOMEL) 3-21 by mouth Luke s 5 MCG 00:00: daily . Medical tablet [address] [place] [address] Suprax 200 Suprax 200 No 5mL BID Suprax 200 [facility] mg/5 mL mg/5 mL mg/5 mL Commun i oral oral oral ty suspension suspension suspension [facility] Take 5 mL Take 5 mL Take 5 mL l twice a day twice a day twice a Clinics by oral by oral day by route for 7 route for 7 oral route days. days. for 7 days. tramadol 50 tramadol 50 No tramadol [facility] mg tablet mg tablet 50 mg Comm uni TAKE 1 TAKE 1 tablet ty TABLET BY TABLET BY TAKE 1 [facility] MOUTH AT MOUTH AT TABLET BY l BEDTIME AND BEDTIME AND MOUTH AT Clinics IN MORNING IN MORNING BEDTIME AND IN MORNING amlodipine amlodipine No amlodipine [facility] 5 mg tablet 5 mg tablet 5 mg C ommuni TAKE 1 TAKE 1 tablet ty TABLET BY TABLET BY TAKE 1 Hos [facility]ichael MOUTH EVERY MOUTH EVERY TABLET BY l DAY DAY MOUTH Clinics EVERY DAY atorvastati atorvastati No atorvastat [facility] n 20 mg n 20 mg in 20 mg Commu ni tablet TAKE tablet TAKE tablet ty 1 TABLET BY 1 TABLET BY TAKE 1 Hospita MOUTH EVERY MOUTH EVERY TABLET BY l DAY FOR 90 DAY FOR 90 MOUTH Cl inics DAYS DAYS EVERY DAY FOR 90 DAYS BD Kalee 2nd BD Kalee 2nd No BD Kalee [facility] Gen Pen Gen Pen 2nd Gen Commun i Needle 32 Needle 32 Pen Needle ty gauge x gauge x 32 gauge x Hos michael " 1 " 1 " 1 l TIME A DAY TIME A DAY TIME A DAY Clinics cholecalcif cholecalcif No cholecalci [facility] ghada ghada ferol Communi (vitamin (vitamin (vitamin ty D3) 1,250 D3) 1,250 D3) 1,250 Hospita mcg (50,000 mcg (50,000 mcg l unit) unit) (50,000 Clinics capsule capsule unit) TAKE 1 TAKE 1 capsule CAPSULES BY CAPSULES BY TAKE 1 MOUTH ONCE MOUTH ONCE CAPSULES EVERY 15 EVERY 15 BY MOUTH DAYS DAYS ONCE EVERY 15 DAYS clonazepam clonazepam No clonazepam [facility] 0.5 mg 0.5 mg 0.5 mg Communi [...] DAY EVERY DAY famotidine famotidine No famotidine [facility] 20 mg 20 mg 20 mg Communi tablet TAKE tablet TAKE tablet ty 1 TABLET BY 1 TABLET BY TAKE 1 Hospita MOUTH AT MOUTH AT TABLET BY l BEDTIME BEDTIME MOUTH AT Clini cs BEDTIME glipizide glipizide No glipizide [facility] ER 2.5 mg ER 2.5 mg ER [...] BREAKFAST Humatrope 6 Humatrope 6 No Humatrope [facility] mg (18 mg (18 6 mg (18 Communi unit) unit) unit) ty injection injection injection Hospita cartridge cartridge cartridge l INJECT INJECT INJECT [facility] 0.3MG 0.3MG 0.3MG SUBCUTANEOU SUBCUTANEOU SUBCUTANEO SLY EVERY SLY EVERY USLY EVERY DAY DAY DAY hydrocortis hydrocortis No hydrocorti [facility] one 20 mg one 20 mg sone 20 mg Communi tablet TAKE tablet TAKE tablet ty 1 TABLET BY 1 TABLET BY TAKE 1 Hospita MOUTH WITH MOUTH WITH TABLET BY l BREAKFAST, BREAKFAST, MOUTH WITH Clinics THEN TAKE 2 THEN TAKE 2 BREAKFAST, TABLETS TABLETS THEN TAKE WITH WITH 2 TABLETS DINNER. DINNER. WITH DINNER. isosorbide isosorbide No isosorbide [facility] mononitrate mononitrate mononitrat Communi ER 30 mg ER 30 mg e ER 30 mg t y tablet,exte tablet,exte tablet,ext Hospita nded nded ended l release 24 release 24 release 24 Clinics hr TAKE 1 hr TAKE 1 hr TAKE 1 TABLET BY TABLET BY TABLET BY MOUTH EVERY MOUTH EVERY MOUTH DAY DAY EVERY DAY Klor-Con 10 Klor-Con 10 No Klor-Con [facility] mEq mEq 10 mEq Communi tablet,exte tablet,exte tablet,ext ty nded nded ended Hospita release release release l TAKE 1 TAKE 1 TAKE 1 Clinics TABLET BY TABLET BY TABLET BY MOUTH EVERY MOUTH EVERY MOUTH DAY WITH DAY WITH EVERY DAY FOOD FOOD WITH FOOD levothyroxi levothyroxi No levothyrox [facility] ne 112 mcg ne 112 mcg ine 112 [facility] tablet TAKE tablet TAKE mcg tablet ty 1 TABLET BY 1 TABLET BY TAKE 1 Hospita MOUTH DAILY MOUTH DAILY TABLET BY l 1/2 HOUR 1/2 HOUR MOUTH Clinic s BEFORE BEFORE DAILY 1/2 BREAKFAST BREAKFAST HOUR WITH WATER WITH WATER BEFORE BREAKFAST WITH WATER lidocaine 5 lidocaine 5 No lidocaine [facility] % topical % topical 5 % Com[facility] ni patch APPLY patch APPLY topical ty 1 PATCH BY 1 PATCH BY patch [facility] TOPICAL TOPICAL APPLY 1 l ROUTE ONCE ROUTE ONCE PATCH BY Clinics DAILY (MAY DAILY (MAY TOPICAL WEAR UP TO WEAR UP TO ROUTE ONCE 12HOURS.) 12HOURS.) DAILY (MAY WEAR UP TO 12HOURS.) liothyronin liothyronin No liothyroni [facility] e 5 mcg e 5 mcg ne [...] BREAKFAST WITH WATER mirtazapine mirtazapine No mirtazapin [facility] 15 mg 15 mg e 15 mg [facility] tablet TAKE tablet TAKE tablet ty 1 TABLET BY 1 TABLET BY TAKE 1 Hospita MOUTH MOUTH TABLET BY l EVERYDAY AT EVERYDAY AT MOUTH Clinics BEDTIME BEDTIME EVERYDAY AT BEDTIME nitroglycer nitroglycer No 1 nitroglyce [facility] in 0.4 mg in 0.4 mg rin 0.4 mg [facility]i sublingual sublingual sublingual ty tablet tablet tablet Hospita Place [address] 1 l tablet as tablet as tablet as Clinics needed by needed by needed by sublingual sublingual sublingual route. route. route. omeprazole omeprazole No omeprazole [facility] 40 mg 40 mg 40 mg Communi [...] A DAY Clinics potassium potassium No potassium [facility] chloride ER chloride ER chloride [facility] 20 mEq 20 mEq ER 20 mEq ty tablet,exte tablet,exte tablet,ext Hospita nded nded ended l release(par release(par release(pa Clinics t/cryst) t/cryst) rt/cryst) TAKE 1 TAKE 1 TAKE 1 TABLET BY TABLET BY TABLET BY MOUTH EVERY MOUTH EVERY MOUTH DAY DAY EVERY DAY Santyl 250 Santyl 250 No Santyl 250 [facility] unit/gram unit/gram unit/gram [facility] topical topical topical ty ointment ointment ointment [facility] APPLY A APPLY A APPLY A l [facility] TO AMOUNT TO AMOUNT TO WOUND 3 WOUND 3 WOUND 3 TIMES A TIMES A TIMES A WEEK WEEK WEEK sotalol 160 sotalol 160 No sotalol [facility] mg tablet mg tablet 160 mg Com raz TAKE 1 TAKE 1 tablet ty TABLET BY TABLET BY TAKE 1 [facility] MOUTH TWICE MOUTH TWICE TABLET BY l A DAY A DAY MOUTH Clinics TWICE A DAY tramadol 50 tramadol 50 No tramadol [facility] mg tablet mg tablet 50 mg Comm uni TAKE 1 TAKE 1 tablet ty TABLET BY TABLET BY TAKE 1 [facility] MOUTH EVERY MOUTH EVERY TABLET BY l 8 HOURS 8 HOURS MOUTH Cl inics NEEDED FOR NEEDED FOR EVERY 8 PAIN PAIN HOURS NEEDED FOR PAIN amlodipine amlodipine No amlodipine [facility] 5 mg tablet 5 mg tablet 5 mg C [facility] TAKE 1 TAKE 1 tablet ty TABLET BY TABLET BY TAKE 1 [facility] MOUTH EVERY MOUTH EVERY TABLET BY l DAY DAY MOUTH Clinics EVERY DAY atorvastati atorvastati No atorvastat [facility] n 20 mg n 20 mg in 20 mg Com[facility] ni tablet TAKE tablet TAKE tablet ty 1 TABLET BY 1 TABLET BY TAKE 1 Hospita MOUTH EVERY MOUTH EVERY TABLET BY l DAY FOR 90 DAY FOR 90 MOUTH Cl inics DAYS DAYS EVERY DAY FOR 90 DAYS BD Kalee 2nd BD K[facility] 2nd No BD Kalee [facility] Gen Pen Gen Pen 2nd Gen Commun [...] EVERY 12 HOURS cholecalcif cholecalcif No cholecalci [facility] ghada ghada ferol Commun[facility] (vitamin (vitamin (vitamin ty D3) 1,250 D3) 1,250 D3) 1,250 [facility]ospita mcg (50,000 mcg (50,000 mcg l unit) unit) (50,000 Clinics capsule capsule unit) TAKE 1 TAKE 1 capsule CAPSULE BY CAPSULE BY TAKE 1 MOUTH EVERY MOUTH EVERY CAPSULE BY 15 DAYS 15 DAYS MOUTH EVERY 15 DAYS ciprofloxac ciprofloxac No ciprofloxa [facility] in 500 mg in 500 mg anuj 500 mg [facility] tablet tablet tablet ty Hospita l Clinics clonazepam clonazepam No clonazepam [facility] 0.5 mg 0.5 mg 0.5 mg Communi [...] DAY EVERY DAY doxycycline doxycycline No doxycyclin [facility] hyclate 100 hyclate 100 e hyclate [facility] mg capsule mg capsule 100 mg t y TAKE 1 TAKE 1 capsule Hospita CAPSULE BY CAPSULE BY TAKE 1 l MOUTH TWICE MOUTH TWICE CAPSULE BY Clinics A DAY A DAY MOUTH TWICE A DAY famotidine famotidine No famotidine [facility] 20 mg 20 mg 20 mg [facility] tablet TAKE tablet TAKE tablet ty 1 TABLET BY 1 TABLET BY TAKE 1 Hospita MOUTH AT MOUTH AT TABLET BY l BEDTIME BEDTIME MOUTH AT Clini cs BEDTIME glipizide glipizide No glipizide [facility] ER 2.5 mg ER 2.5 mg ER [...] BREAKFAST Humatrope 6 Humatrope 6 No Humatrope [facility] mg (18 mg (18 6 mg (18 [facility]i unit) unit) unit) ty injection injection injection [facility] cartridge cartridge cartridge l INJECT INJECT INJECT Clinics 0.3MG 0.3MG 0.3MG SUBCUTANEOU SUBCUTANEOU SUBCUTANEO SLY ONCE A SLY ONCE A USLY ONCE DAY. DAY. A DAY. hydrocodone hydrocodone No hydrocodon [facility] 5 5 e 5 [facility]i mg-acetamin mg-acetamin mg-acetami ty ophen 325 ophen 325 nophen 325 Hospita mg tablet mg tablet mg tablet l Clinics hydrocortis hydrocortis No hydrocorti [facility] one 20 mg one 20 mg sone 20 mg [facility] tablet TAKE tablet TAKE tablet ty 1 TABLET BY 1 TABLET BY TAKE 1 Hospita MOUTH WITH MOUTH WITH TABLET BY l BREAKFAST, BREAKFAST, MOUTH WITH Clinics THEN TAKE 2 THEN TAKE 2 BREAKFAST, TABLETS TABLETS THEN TAKE WITH WITH 2 TABLETS DINNER. DINNER. WITH DINNER. isosorbide isosorbide No isosorbide [facility] mononitrate mononitrate mononitrat [facility] ER 30 mg ER 30 mg e ER 30 mg t y tablet,exte tablet,exte tablet,ext Hospita nded nded ended l release 24 release 24 release 24 Clinics hr TAKE 1 hr TAKE 1 hr TAKE 1 TABLET BY TABLET BY TABLET BY MOUTH EVERY MOUTH EVERY MOUTH DAY DAY EVERY DAY Klor-Con 10 Klor-Con 10 No Klor-Con [facility] mEq mEq 10 mEq Commun[facility] tablet,exte tablet,exte tablet,ext ty nded nded ended Hospita release release release l TAKE 1 TAKE 1 TAKE 1 Clinics TABLET BY TABLET BY TABLET BY MOUTH EVERY MOUTH EVERY MOUTH DAY WITH DAY WITH EVERY DAY FOOD FOOD WITH FOOD levothyroxi levothyroxi No levothyrox [facility] ne 112 mcg ne 112 mcg ine 112 Communi tablet TAKE tablet TAKE mcg tablet ty 1 TABLET BY 1 TABLET BY TAKE 1 Hospita MOUTH ONCE MOUTH ONCE TABLET BY l DAILY 1/2 DAILY 1/2 MOUTH ONCE Clinics HOUR BEFOR HOUR BEFOR DAILY 1/2 BREKFAST BREKFAST HOUR BEFOR WITH WATER WITH WATER BREKFAST WITH WATER lidocaine 5 lidocaine 5 No lidocaine [facility] % topical % topical 5 % [facility] ni patch APPLY patch APPLY topical ty 1 PATCH BY 1 PATCH BY patch [facility] TOPICAL TOPICAL APPLY 1 l ROUTE ONCE ROUTE ONCE PATCH BY Clinics DAILY (MAY DAILY (MAY TOPICAL WEAR UP TO WEAR UP TO ROUTE ONCE 12HOURS.) 12HOURS.) DAILY (MAY WEAR UP TO 12HOURS.) liothyronin liothyronin No liothyroni [facility] e 5 mcg e 5 mcg ne 5 mcg Com[facility] ni tablet TAKE tablet TAKE tablet ty 2 TABS 2 TABS TAKE 2 Hospita TUES, TUES, TABS TUES, l THURS, SAT, THURS, SAT, THURS, Clinics SUN. TAKE 1 SUN. TAKE 1 SAT, SUN. TAB MON, TAB MON, TAKE 1 TAB WED, Tue, FRI TUE, WED, HALF HOUR HALF HOUR FRI HALF BEFORE BEFORE HOUR BREAKFAST BREAKFAST BEFORE WITH WATER WITH WATER BREAKFAST WITH WATER losartan 50 losartan 50 No losartan [facility] mg tablet mg tablet 50 mg Comm uni TAKE 1 TAKE 1 tablet ty TABLET BY TABLET BY TAKE 1 [facility] MOUTH EVERY MOUTH EVERY TABLET BY l DAY FOR 90 DAY FOR 90 MOUTH Cl inics DAYS DAYS EVERY DAY FOR 90 DAYS mirtazapine mirtazapine No mirtazapin [facility] 15 mg 15 mg e 15 mg Commun[facility] tablet TAKE tablet TAKE tablet ty 1 TABLET BY 1 TABLET BY TAKE 1 Hospita MOUTH MOUTH TABLET BY l EVERYDAY AT EVERYDAY AT MOUTH Clinics BEDTIME BEDTIME EVERYDAY AT BEDTIME mupirocin 2 mupirocin 2 No mupirocin [facility] % topical % topical 2 % Commu [...] DAY NEEDED nitroglycer nitroglycer No 1 nitroglyce [facility] in 0.4 mg in 0.4 mg rin 0.4 mg [facility]i sublingual sublingual sublingual ty tablet tablet tablet Hospita Place [address] 1 l tablet as tablet as tablet as Clinics needed by needed by needed by sublingual sublingual sublingual route. route. route. omeprazole omeprazole No omeprazole [facility] 40 mg 40 mg 40 mg Communi [...] DAY l Clinics potassium potassium No potassium [facility] chloride ER chloride ER chloride [facility]i 20 mEq 20 mEq ER 20 mEq ty tablet,exte tablet,exte tablet,ext [facility]ospita nded nded ended l release(par release(par release(pa Clinics t/cryst) t/cryst) rt/cryst) TAKE 1 TAKE 1 TAKE 1 TABLET BY TABLET BY TABLET BY MOUTH EVERY MOUTH EVERY MOUTH DAY DAY EVERY DAY Santyl 250 Santyl 250 No Santyl 250 [facility] unit/gram unit/gram unit/gram [facility] topical topical topical ty ointment ointment ointment [facility] APPLY A APPLY A APPLY A l [facility] THICK THICK THICK AMOUNT TO AMOUNT TO AMOUNT TO WOUND 3 WOUND 3 WOUND 3 TIMES A TIMES A TIMES A WEEK WEEK WEEK sotalol 160 sotalol 160 No sotalol [facility] mg tablet mg tablet 160 mg Com raz TAKE 1 TAKE 1 tablet ty TABLET BY TABLET BY TAKE 1 [facility] MOUTH EVERY MOUTH EVERY TABLET BY l 12 HOURS 12 HOURS MOUTH Clinic s FOR 90 DAYS FOR 90 DAYS EVERY 12 HOURS FOR 90 DAYS tramadol 50 tramadol 50 No tramadol [facility] mg tablet mg tablet 50 mg Comm uni TAKE 1 TAKE 1 tablet ty TABLET BY TABLET BY TAKE 1 [facility] MOUTH EVERY MOUTH EVERY TABLET BY l 12 HOURS 12 HOURS MOUTH Clinics NEEDED FOR NEEDED FOR EVERY 12 PAIN PAIN HOURS NEEDED FOR PAIN amlodipine amlodipine No amlodipine [facility] 5 mg tablet 5 mg tablet 5 mg C [facility] TAKE 1 TAKE 1 tablet ty TABLET BY TABLET BY TAKE 1 [facility] MOUTH EVERY MOUTH EVERY TABLET BY l DAY FOR 90 DAY FOR 90 MOUTH Cl inics DAYS DAYS EVERY DAY FOR 90 DAYS atorvastati atorvastati No atorvastat [facility] n 20 mg n 20 mg in 20 mg Commu ni tablet TAKE tablet TAKE tablet ty 1 TABLET BY 1 TABLET BY TAKE 1 Hospita MOUTH EVERY MOUTH EVERY TABLET BY l DAY DAY MOUTH Clinics EVERY DAY BD [facility]e 2nd BD [facility] 2nd No BD Kalee [facility] Gen Pen Gen Pen 2nd Gen Commun [...] EVERY 12 HOURS cholecalcif cholecalcif No cholecalci [facility] ghada ghada ferol Communi (vitamin (vitamin (vitamin ty D3) 1,250 D3) 1,250 D3) 1,250 [facility]ospita mcg (50,000 mcg (50,000 mcg l unit) unit) (50,000 Clinics capsule capsule unit) TAKE 1 TAKE 1 capsule CAPSULE BY CAPSULE BY TAKE 1 MOUTH EVERY MOUTH EVERY CAPSULE BY 15 DAYS 15 DAYS MOUTH EVERY 15 DAYS ciprofloxac ciprofloxac No ciprofloxa [facility] in 500 mg in 500 mg anuj 500 mg [facility] tablet tablet tablet ty Hospita l Clinics clonazepam clonazepam No clonazepam [facility] 0.5 mg 0.5 mg 0.5 mg Communi [...] DAY EVERY DAY doxycycline doxycycline No doxycyclin [facility] hyclate 100 hyclate 100 e hyclate Communi mg capsule mg capsule 100 mg t y TAKE 1 TAKE 1 capsule Hospita CAPSULE BY CAPSULE BY TAKE 1 l MOUTH TWICE MOUTH TWICE CAPSULE BY Clinics A DAY A DAY MOUTH TWICE A DAY famotidine famotidine No famotidine [facility] 20 mg 20 mg 20 mg [facility] tablet TAKE tablet TAKE tablet ty 1 TABLET BY 1 TABLET BY TAKE 1 Hospita MOUTH EVERY MOUTH EVERY TABLET BY l DAY DAY MOUTH Clinics EVERY DAY gabapentin gabapentin No gabapentin [facility] 100 mg 100 mg 100 mg Communi capsule capsule capsule ty TAKE 1 TAKE 1 TAKE 1 Hospita CAPSULE BY CAPSULE BY CAPSULE BY l MOUTH AT MOUTH AT MOUTH AT i nics BEDTIME BEDTIME BEDTIME glipizide glipizide No glipizide [facility] ER 2.5 mg ER 2.5 mg ER [...] BREAKFAST Humatrope 6 Humatrope 6 No Humatrope [facility] mg (18 mg (18 6 mg (18 [facility]i unit) unit) unit) ty injection injection injection [facility] cartridge cartridge cartridge l INJECT INJECT INJECT [facility] 0.3MG 0.3MG 0.3MG SUBCUTANEOU SUBCUTANEOU SUBCUTANEO SLY ONCE A SLY ONCE A USLY ONCE DAY. DAY. A DAY. hydrocodone hydrocodone No hydrocodon [facility] 5 5 e 5 Communi mg-acetamin mg-acetamin mg-acetami ty ophen 325 ophen 325 nophen 325 Hospita mg tablet mg tablet mg tablet l Clinics hydrocortis hydrocortis No hydrocorti [facility] one 20 mg one 20 mg sone 20 mg [facility] tablet TAKE tablet TAKE tablet ty 1 TABLET BY 1 TABLET BY TAKE 1 Hospita MOUTH WITH MOUTH WITH TABLET BY l BREAKFAST, BREAKFAST, MOUTH WITH Clinics THEN TAKE 2 THEN TAKE 2 BREAKFAST, TABLETS TABLETS THEN TAKE WITH WITH 2 TABLETS DINNER. DINNER. WITH DINNER. hydrocortis hydrocortis No hydrocorti [facility] one 5 mg one 5 mg sone [...] MOUTH EVERY EVENING isosorbide isosorbide No isosorbide [facility] mononitrate mononitrate mononitrat Commun[facility] ER 30 mg ER 30 mg e ER 30 mg t y tablet,exte tablet,exte tablet,ext Hospita nded nded ended l release 24 release 24 release 24 Clinics hr TAKE 1 hr TAKE 1 hr TAKE 1 TABLET BY TABLET BY TABLET BY MOUTH EVERY MOUTH EVERY MOUTH DAY DAY EVERY DAY Klor-Con 10 Klor-Con 10 No Klor-Con [facility] mEq mEq 10 mEq [facility] tablet,exte tablet,exte tablet,ext ty nded nded ended Hospita release release release l TAKE 1 TAKE 1 TAKE 1 Clinics TABLET BY TABLET BY TABLET BY MOUTH EVERY MOUTH EVERY MOUTH DAY WITH DAY WITH EVERY DAY FOOD FOOD WITH FOOD levothyroxi levothyroxi No levothyrox [facility] ne 112 mcg ne 112 mcg ine 112 Communi tablet TAKE tablet TAKE mcg tablet ty 1 TABLET BY 1 TABLET BY TAKE 1 Hospita MOUTH EVERY MOUTH EVERY TABLET BY l DAY DAY MOUTH Clinics EVERY DAY lidocaine 5 lidocaine 5 No lidocaine [facility] % topical % topical 5 % Com[facility] ni patch APPLY patch APPLY topical ty 1 PATCH BY 1 PATCH BY patch [facility] TOPICAL TOPICAL APPLY 1 l ROUTE ONCE ROUTE ONCE PATCH BY Clinics DAILY (MAY DAILY (MAY TOPICAL WEAR UP TO WEAR UP TO ROUTE ONCE 12HOURS.) 12HOURS.) DAILY (MAY WEAR UP TO 12HOURS.) liothyronin liothyronin No liothyroni [facility] e 5 mcg e 5 mcg ne [...] WATER losartan 50 losartan 50 No losartan [facility] mg tablet mg tablet 50 mg Comm uni TAKE 1 TAKE 1 tablet ty TABLET BY TABLET BY TAKE 1 [facility] MOUTH EVERY MOUTH EVERY TABLET BY l DAY FOR 90 DAY FOR 90 MOUTH Cl inics DAYS DAYS EVERY DAY FOR 90 DAYS mirtazapine mirtazapine No mirtazapin [facility] 15 mg 15 mg e 15 mg Communi tablet TAKE tablet TAKE tablet ty 1 TABLET BY 1 TABLET BY TAKE 1 Hospita MOUTH MOUTH TABLET BY l EVERYDAY AT EVERYDAY AT MOUTH Clinics BEDTIME BEDTIME EVERYDAY AT BEDTIME mupirocin 2 mupirocin 2 No mupirocin [facility] % topical % topical 2 % Commu [...] DAY NEEDED nitroglycer nitroglycer No 1 nitroglyce [facility] in 0.4 mg in 0.4 mg rin 0.4 mg [facility]i sublingual sublingual sublingual ty tablet tablet tablet Hosp[facility] Place [address] 1 l tablet as tablet as tablet as Clinics needed by needed by needed by sublingual sublingual sublingual route. route. route. omeprazole omeprazole No omeprazole [facility] 40 mg 40 mg 40 mg Communi [...] DAY l Clinics potassium potassium No potassium [facility] chloride ER chloride ER chloride Communi 20 mEq 20 mEq ER 20 mEq ty tablet,exte tablet,exte tablet,ext [facility]ospita nded nded ended l release(par release(par release(pa Clinics t/cryst) t/cryst) rt/cryst) TAKE 1 TAKE 1 TAKE 1 TABLET BY TABLET BY TABLET BY MOUTH EVERY MOUTH EVERY MOUTH DAY DAY EVERY DAY Santyl 250 Santyl 250 No Santyl 250 [facility] unit/gram unit/gram unit/gram [facility] topical topical topical ty ointment ointment ointment [facility] APPLY A APPLY A APPLY A l [facility] Clinics THICK THICK THICK AMOUNT TO AMOUNT TO AMOUNT TO WOUND 3 WOUND 3 WOUND 3 TIMES A TIMES A TIMES A WEEK WEEK WEEK sotalol 160 sotalol 160 No sotalol [facility] mg tablet mg tablet 160 mg Com raz TAKE 1 TAKE 1 tablet ty TABLET BY TABLET BY TAKE 1 Hos micheal MOUTH EVERY MOUTH EVERY TABLET BY l 12 HOURS 12 HOURS MOUTH Clinic s FOR 90 DAYS FOR 90 DAYS EVERY 12 HOURS FOR 90 DAYS sotalol 80 sotalol 80 No sotalol 80 [facility] mg tablet mg tablet mg tablet Communi TAKE 1 TAKE 1 TAKE 1 ty TABLET BY TABLET BY TABLET BY Hospita MOUTH EVERY MOUTH EVERY MOUTH l DAY DAY EVERY DAY Clinics tramadol 50 tramadol 50 No tramadol [facility] mg tablet mg tablet 50 mg Comm uni TAKE 1 TAKE 1 tablet ty TABLET BY TABLET BY TAKE 1 [facility] MOUTH EVERY MOUTH EVERY TABLET BY l 12 HOURS 12 HOURS MOUTH Clinics NEEDED FOR NEEDED FOR EVERY 12 PAIN PAIN HOURS NEEDED FOR PAIN amlodipine amlodipine No amlodipine [facility] 5 mg tablet 5 mg tablet 5 mg C [facility] TAKE 1 TAKE 1 tablet ty TABLET BY TABLET BY TAKE 1 [facility] MOUTH EVERY MOUTH EVERY TABLET BY l DAY FOR 90 DAY FOR 90 MOUTH Cl inics DAYS DAYS EVERY DAY FOR 90 DAYS atorvastati atorvastati No atorvastat [facility] n 20 mg n 20 mg in 20 mg Commu ni tablet TAKE tablet TAKE tablet ty 1 TABLET BY 1 TABLET BY TAKE 1 Hospita MOUTH EVERY MOUTH EVERY TABLET BY l DAY DAY MOUTH Clinics EVERY DAY BD [facility]e 2nd BD [facility] 2nd No BD Kalee [facility] Gen Pen Gen Pen 2nd Gen Commun [...] EVERY 12 HOURS cholecalcif cholecalcif No cholecalci [facility] ghada ghada ferol Communi (vitamin (vitamin (vitamin ty D3) 1,250 D3) 1,250 D3) 1,250 [facility]osp[facility] mcg (50,000 mcg (50,000 mcg l unit) unit) (50,000 Clinics capsule capsule unit) TAKE 1 TAKE 1 capsule CAPSULE BY CAPSULE BY TAKE 1 MOUTH EVERY MOUTH EVERY CAPSULE BY 15 DAYS 15 DAYS MOUTH EVERY 15 DAYS ciprofloxac ciprofloxac No ciprofloxa [facility] in 500 mg in 500 mg anuj 500 mg [facility] tablet tablet tablet ty [facility]ospita l Clinics clonazepam clonazepam No clonazepam [facility] 0.5 mg 0.5 mg 0.5 mg Communi [...] DAY EVERY DAY doxycycline doxycycline No doxycyclin [facility] hyclate 100 hyclate 100 e hyclate Communi mg capsule mg capsule 100 mg t y TAKE 1 TAKE 1 capsule [facility]ospita CAPSULE BY CAPSULE BY TAKE 1 l MOUTH TWICE MOUTH TWICE CAPSULE BY Clinics A DAY A DAY MOUTH TWICE A DAY famotidine famotidine No famotidine [facility] 20 mg 20 mg 20 mg [facility] tablet TAKE tablet TAKE tablet ty 1 TABLET BY 1 TABLET BY TAKE 1 Hospita MOUTH EVERY MOUTH EVERY TABLET BY l DAY DAY MOUTH Clinics EVERY DAY gabapentin gabapentin No gabapentin [facility] 100 mg 100 mg 100 mg Communi capsule capsule capsule ty TAKE 1 TAKE 1 TAKE 1 Hospita CAPSULE BY CAPSULE BY CAPSULE BY l MOUTH AT MOUTH AT MOUTH AT Cli nics BEDTIME BEDTIME BEDTIME glipizide glipizide No glipizide [facility] ER 2.5 mg ER 2.5 mg ER [...] BREAKFAST Humatrope 6 Humatrope 6 No Humatrope [facility] mg (18 mg (18 6 mg (18 Communi unit) unit) unit) ty injection injection injection [facility] cartridge cartridge cartridge l INJECT INJECT INJECT Clinics 0.3MG 0.3MG 0.3MG SUBCUTANEOU SUBCUTANEOU SUBCUTANEO SLY ONCE A SLY ONCE A USLY ONCE DAY. DAY. A DAY. hydrocodone hydrocodone No hydrocodon [facility] 5 5 e 5 Communi mg-acetamin mg-acetamin mg-acetami ty ophen 325 ophen 325 nophen 325 Hospita mg tablet mg tablet mg tablet l Clinics hydrocortis hydrocortis No hydrocorti [facility] one 20 mg one 20 mg sone 20 mg [facility] tablet TAKE tablet TAKE tablet ty 1 TABLET BY 1 TABLET BY TAKE 1 Hospita MOUTH WITH MOUTH WITH TABLET BY l BREAKFAST, BREAKFAST, MOUTH WITH Clinics THEN TAKE 2 THEN TAKE 2 BREAKFAST, TABLETS TABLETS THEN TAKE WITH WITH 2 TABLETS DINNER. DINNER. WITH DINNER. hydrocortis hydrocortis No hydrocorti [facility] one 5 mg one 5 mg sone [...] MOUTH EVERY EVENING isosorbide isosorbide No isosorbide [facility] mononitrate mononitrate mononitrat Communi ER 30 mg ER 30 mg e ER 30 mg t y tablet,exte tablet,exte tablet,ext [facility]ospita nded nded ended l release 24 release 24 release 24 Clinics hr TAKE 1 hr TAKE 1 hr TAKE 1 TABLET BY TABLET BY TABLET BY MOUTH EVERY MOUTH EVERY MOUTH DAY DAY EVERY DAY Klor-Con 10 Klor-Con 10 No Klor-Con [facility] mEq mEq 10 mEq Commun[facility] tablet,exte tablet,exte tablet,ext ty nded nded ended Hospita release release release l TAKE 1 TAKE 1 TAKE 1 Clinics TABLET BY TABLET BY TABLET BY MOUTH EVERY MOUTH EVERY MOUTH DAY WITH DAY WITH EVERY DAY FOOD FOOD WITH FOOD levothyroxi levothyroxi No levothyrox [facility] ne 112 mcg ne 112 mcg ine 112 Communi tablet TAKE tablet TAKE mcg tablet ty 1 TABLET BY 1 TABLET BY TAKE 1 Hospita MOUTH EVERY MOUTH EVERY TABLET BY l DAY DAY MOUTH Clinics EVERY DAY lidocaine 5 lidocaine 5 No lidocaine [facility] % topical % topical 5 % Commu ni patch APPLY patch APPLY topical ty 1 PATCH BY 1 PATCH BY patch Mike martinez TOPICAL TOPICAL APPLY 1 l ROUTE ONCE ROUTE ONCE PATCH BY Clinics DAILY (MAY DAILY (MAY TOPICAL WEAR UP TO WEAR UP TO ROUTE ONCE 12HOURS.) 12HOURS.) DAILY (MAY WEAR UP TO 12HOURS.) liothyronin liothyronin No liothyroni [facility] e 5 mcg e 5 mcg ne [...] WATER losartan 50 losartan 50 No losartan [facility] mg tablet mg tablet 50 mg Comm uni TAKE 1 TAKE 1 tablet ty TABLET BY TABLET BY TAKE 1 [facility] MOUTH EVERY MOUTH EVERY TABLET BY l DAY FOR 90 DAY FOR 90 MOUTH Cl inics DAYS DAYS EVERY DAY FOR 90 DAYS mirtazapine mirtazapine No mirtazapin [facility] 15 mg 15 mg e 15 mg Communi tablet TAKE tablet TAKE tablet ty 1 TABLET BY 1 TABLET BY TAKE 1 Hospita MOUTH MOUTH TABLET BY l EVERYDAY AT EVERYDAY AT MOUTH Clinics BEDTIME BEDTIME EVERYDAY AT BEDTIME mupirocin 2 mupirocin 2 No mupirocin [facility] % topical % topical 2 % Commu [...] DAY NEEDED nitroglycer nitroglycer No 1 nitroglyce [facility] in 0.4 mg in 0.4 mg rin 0.4 mg Communi sublingual sublingual sublingual ty tablet tablet tablet [facility]osp[facility] Place [address] 1 l tablet as tablet as tablet as Clinics needed by needed by needed by sublingual sublingual sublingual route. route. route. omeprazole omeprazole No omeprazole [facility] 40 mg 40 mg 40 mg Communi [...] DAY l Clinics potassium potassium No potassium [facility] chloride ER chloride ER chloride Communi 20 mEq 20 mEq ER 20 mEq ty tablet,exte tablet,exte tablet,ext [facility]ospita nded nded ended l release(par release(par release(pa Clinics t/cryst) t/cryst) rt/cryst) TAKE 1 TAKE 1 TAKE 1 TABLET BY TABLET BY TABLET BY MOUTH EVERY MOUTH EVERY MOUTH DAY DAY EVERY DAY Santyl 250 Santyl 250 No Santyl 250 [facility] unit/gram unit/gram unit/gram Communi topical topical topical ty ointment ointment ointment [facility] APPLY A APPLY A APPLY A l [facility] THICK THICK THICK AMOUNT TO AMOUNT TO AMOUNT TO WOUND 3 WOUND 3 WOUND 3 TIMES A TIMES A TIMES A WEEK WEEK WEEK sotalol 160 sotalol 160 No sotalol [facility] mg tablet mg tablet 160 mg Com raz TAKE 1 TAKE 1 tablet ty TABLET BY TABLET BY TAKE 1 [facility] MOUTH EVERY MOUTH EVERY TABLET BY l 12 HOURS 12 HOURS MOUTH Clinic s FOR 90 DAYS FOR 90 DAYS EVERY 12 HOURS FOR 90 DAYS sotalol 80 sotalol 80 No sotalol 80 [facility] mg tablet mg tablet mg tablet Communi TAKE 1 TAKE 1 TAKE 1 ty TABLET BY TABLET BY TABLET BY Hospita MOUTH EVERY MOUTH EVERY MOUTH l DAY DAY EVERY DAY Clinics tramadol 50 tramadol 50 No tramadol [facility] mg tablet mg tablet 50 mg Comm uni TAKE 1 TAKE 1 tablet ty TABLET BY TABLET BY TAKE 1 [facility] MOUTH EVERY MOUTH EVERY TABLET BY l 12 HOURS 12 HOURS MOUTH Clinics NEEDED FOR NEEDED FOR EVERY 12 PAIN PAIN HOURS NEEDED FOR PAIN amlodipine amlodipine No amlodipine [facility] 5 mg tablet 5 mg tablet 5 mg C [facility] TAKE 1 TAKE 1 tablet ty TABLET BY TABLET BY TAKE 1 [facility] MOUTH EVERY MOUTH EVERY TABLET BY l DAY FOR 90 DAY FOR 90 MOUTH Cl inics DAYS DAYS EVERY DAY FOR 90 DAYS atorvastati atorvastati No atorvastat [facility] n 20 mg n 20 mg in 20 mg Commu ni tablet TAKE tablet TAKE tablet ty 1 TABLET BY 1 TABLET BY TAKE 1 Hospita MOUTH EVERY MOUTH EVERY TABLET BY l DAY DAY MOUTH Clinics EVERY DAY BD [facility] 2nd BD [facility] 2nd No BD [facility] Gen Pen Gen Pen 2nd Gen Commun i Needle 32 Needle 32 Pen Needle ty gauge x gauge x 32 gauge x [facility] 5/32" USE 32" USE " USE l ONE TIME A ONE TIME A ONE TIME A Clinics DAY DAY DAY cholecalcif cholecalcif No cholecalci [facility] ghada ghada ferol Communi (vitamin (vitamin (vitamin ty D3) 1,250 D3) 1,250 D3) 1,250 [facility]ospita mcg (50,000 mcg (50,000 mcg l unit) unit) (50,000 Clinics capsule capsule unit) TAKE 1 TAKE 1 capsule CAPSULE BY CAPSULE BY TAKE 1 MOUTH EVERY MOUTH EVERY CAPSULE BY 15 DAYS 15 DAYS MOUTH EVERY 15 DAYS glipizide glipizide No glipizide [facility] ER 2.5 mg ER 2.5 mg ER [...] BREAKFAST Humatrope 6 Humatrope 6 No Humatrope [facility] mg (18 mg (18 6 mg (18 Communi unit) unit) unit) ty injection injection injection [facility] cartridge cartridge cartridge l INJECT INJECT INJECT [facility] 0.3MG 0.3MG 0.3MG SUBCUTANEOU SUBCUTANEOU SUBCUTANEO SLY ONCE A SLY ONCE A USLY ONCE DAY. DAY. A DAY. hydrocortis hydrocortis No hydrocorti [facility] one 20 mg one 20 mg sone 20 mg [facility] tablet TAKE tablet TAKE tablet ty 1 TABLET BY 1 TABLET BY TAKE 1 Hospita MOUTH WITH MOUTH WITH TABLET BY l BREAKFAST BREAKFAST MOUTH WITH Clinics AND 2 AND 2 BREAKFAST TABLETS TABLETS AND 2 WITH WITH TABLETS DINNER. DINNER. WITH DINNER. levothyroxi levothyroxi No levothyrox [facility] ne 112 mcg ne 112 mcg ine 112 [facility] tablet TAKE tablet TAKE mcg tablet ty 1 TABLET BY 1 TABLET BY TAKE 1 Hospita MOUTH DAILY MOUTH DAILY TABLET BY l 1/2 HOUR 1/2 HOUR MOUTH Clinic s BEFORE BEFORE DAILY 1/2 BREAKFAST BREAKFAST HOUR WITH WATER WITH WATER BEFORE BREAKFAST WITH WATER liothyronin liothyronin No liothyroni [facility] e 5 mcg e 5 mcg ne 5 mcg Commu ni tablet TAKE tablet TAKE tablet ty 2 TABS BY 2 TABS BY TAKE 2 [facility] MOUTH TUES, MOUTH TUES, TABS BY l THURS, SAT, THURS, SAT, MOUTH Clinics SUN & 1 TAB SUN & 1 TAB TU, MON, TUE, MON, WED, , FRI HALF HR FRI HALF HR SAT, SUN & BEFORE BEFORE 1 TAB MON, BREAKFAST BREAKFAST TUE, FRI WITH WATER WITH WATER HALF HR BEFORE BREAKFAST WITH WATER nitroglycer nitroglycer No 1 nitroglyce [facility] in 0.4 mg in 0.4 mg rin 0.4 mg [facility] sublingual sublingual sublingual ty tablet tablet tablet Hospita Place [address] 1 l tablet as tablet as tablet as Clinics needed by needed by needed by sublingual sublingual sublingual route. route. route. omeprazole omeprazole No omeprazole [facility] 40 mg 40 mg 40 mg Communi [...] l DAILY Clinics potassium potassium No potassium [facility] chloride ER chloride ER chloride [facility] 10 mEq 10 mEq ER 10 mEq ty tablet,exte tablet,exte tablet,ext [facility] nded nded ended l release release release Clinic s TAKE 1 TAKE 1 TAKE 1 TABLET BY TABLET BY TABLET BY MOUTH EVERY MOUTH EVERY MOUTH DAY WITH DAY WITH EVERY DAY FOOD FOOD WITH FOOD tramadol 50 tramadol 50 No tramadol [facility] mg tablet mg tablet 50 mg Comm uni TAKE 1 TAKE 1 tablet ty TABLET BY TABLET BY TAKE 1 [facility] MOUTH EVERY MOUTH EVERY TABLET BY l 12 HOURS 12 HOURS MOUTH Clinics NEEDED FOR NEEDED FOR EVERY 12 PAIN PAIN HOURS NEEDED FOR PAIN trazodone trazodone No 1 Q1D trazodone [facility] 50 mg 50 mg 50 mg [facility] tablet Take tablet Take tablet ty 1 tablet 1 tablet Take 1 Hos[facility] ta every day every day tablet l by oral by oral every day Clin ics route. route. by oral route. amlodipine amlodipine No amlodipine [facility] 5 mg tablet 5 mg tablet 5 mg [facility] TAKE 1 TAKE 1 tablet ty TABLET BY TABLET BY TAKE 1 [facility] MOUTH EVERY MOUTH EVERY TABLET BY l DAY FOR 90 DAY FOR 90 MOUTH Cl inics DAYS DAYS EVERY DAY FOR 90 DAYS atorvastati atorvastati No atorvastat [facility] n 20 mg n 20 mg in 20 mg Commu ni tablet TAKE tablet TAKE tablet ty 1 TABLET BY 1 TABLET BY TAKE 1 Hospita MOUTH EVERY MOUTH EVERY TABLET BY l DAY DAY MOUTH Clinics EVERY DAY BD [facility] 2nd BD [facility] 2nd No BD K[facility] Gen Pen Gen Pen 2nd Gen Commun i Needle 32 Needle 32 Pen Needle ty gauge x gauge x 32 gauge x [facility] " USE " USE " USE l ONE TIME A ONE TIME A ONE TIME A Clinics DAY DAY DAY cholecalcif cholecalcif No cholecalci [facility] ghada ghada ferol [facility] (vitamin (vitamin (vitamin ty D3) 1,250 D3) 1,250 D3) 1,250 [facility]ospita mcg (50,000 mcg (50,000 mcg l unit) unit) (50,000 Clinics capsule capsule unit) TAKE 1 TAKE 1 capsule CAPSULE BY CAPSULE BY TAKE 1 MOUTH EVERY MOUTH EVERY CAPSULE BY 15 DAYS 15 DAYS MOUTH EVERY 15 DAYS glipizide glipizide No glipizide [facility] ER 2.5 mg ER 2.5 mg ER [...] BREAKFAST Humatrope 6 Humatrope 6 No Humatrope [facility] mg (18 mg (18 6 mg (18 [facility] unit) unit) unit) ty injection injection injection [facility] cartridge cartridge cartridge l INJECT INJECT INJECT [facility] 0.3MG 0.3MG 0.3MG SUBCUTANEOU SUBCUTANEOU SUBCUTANEO SLY ONCE A SLY ONCE A USLY ONCE DAY. DAY. A DAY. hydrocortis hydrocortis No hydrocorti [facility] one 20 mg one 20 mg sone 20 mg [facility] tablet TAKE tablet TAKE tablet ty 1 TABLET BY 1 TABLET BY TAKE 1 Hospita MOUTH WITH MOUTH WITH TABLET BY l BREAKFAST BREAKFAST MOUTH WITH Clinics AND 2 AND 2 BREAKFAST TABLETS TABLETS AND 2 WITH WITH TABLETS DINNER. DINNER. WITH DINNER. levothyroxi levothyroxi No levothyrox [facility] ne 112 mcg ne 112 mcg ine 112 [facility] tablet TAKE tablet TAKE mcg tablet ty 1 TABLET BY 1 TABLET BY TAKE 1 Hospita MOUTH DAILY MOUTH DAILY TABLET BY l 1/2 HOUR 1/2 HOUR MOUTH Clinic s BEFORE BEFORE DAILY 1/2 BREAKFAST BREAKFAST HOUR WITH WATER WITH WATER BEFORE BREAKFAST WITH WATER liothyronin liothyronin No liothyroni [facility] e 5 mcg e 5 mcg ne [...] WITH WATER nitroglycer nitroglycer No 1 nitroglyce [facility] in 0.4 mg in 0.4 mg rin 0.4 mg [facility] sublingual sublingual sublingual ty tablet tablet tablet Hospita Place [address] 1 l tablet as tablet as tablet as Clinics needed by needed by needed by sublingual sublingual sublingual route. route. route. omeprazole omeprazole No omeprazole [facility] 40 mg 40 mg 40 mg Communi [...] l DAILY Clinics potassium potassium No potassium [facility] chloride ER chloride ER chloride [facility] 10 mEq 10 mEq ER 10 mEq ty tablet,exte tablet,exte tablet,ext [facility]ospita nded nded ended l release release release Clinic s TAKE 1 TAKE 1 TAKE 1 TABLET BY TABLET BY TABLET BY MOUTH EVERY MOUTH EVERY MOUTH DAY WITH DAY WITH EVERY DAY FOOD FOOD WITH FOOD tizanidine tizanidine No 1 Q1D tizanidine [facility] 2 mg tablet 2 mg tablet 2 mg [facility] Take 1 Take 1 tablet ty tablet tablet Take 1 Hospita every day every day tablet l by oral by oral every day Clin ics route. route. by oral route. tramadol 50 tramadol 50 No tramadol [facility] mg tablet mg tablet 50 mg Comm uni TAKE 1 TAKE 1 tablet ty TABLET BY TABLET BY TAKE 1 [facility] MOUTH EVERY MOUTH EVERY TABLET BY l 12 HOURS 12 HOURS MOUTH Clinics NEEDED FOR NEEDED FOR EVERY 12 PAIN PAIN HOURS NEEDED FOR PAIN trazodone trazodone No trazodone [facility] 50 mg 50 mg 50 mg [facility] tablet TAKE tablet TAKE tablet ty 1 TABLET BY 1 TABLET BY TAKE 1 [facility]ospita MOUTH EVERY MOUTH EVERY TABLET BY l DAY DAY MOUTH Clinics EVERY DAY amlodipine amlodipine No amlodipine [facility] 5 mg tablet 5 mg tablet 5 mg [facility] TAKE 1 TAKE 1 tablet ty TABLET BY TABLET BY TAKE 1 [facility] MOUTH EVERY MOUTH EVERY TABLET BY l DAY FOR 90 DAY FOR 90 MOUTH Cl inics DAYS DAYS EVERY DAY FOR 90 DAYS atorvastati atorvastati No atorvastat [facility] n 20 mg n 20 mg in 20 mg Commu ni tablet TAKE tablet TAKE tablet ty 1 TABLET BY 1 TABLET BY TAKE 1 Hospita MOUTH EVERY MOUTH EVERY TABLET BY l DAY DAY MOUTH Clinics EVERY DAY BD [facility]e 2nd BD [facility] 2nd No BD Kalee [facility] Gen Pen Gen Pen 2nd Gen Commun i Needle 32 Needle 32 Pen Needle ty gauge x gauge x 32 gauge x [facility] 5/32" USE 32" USE 32" USE l ONE TIME A ONE TIME A ONE TIME A Clinics DAY DAY DAY cholecalcif cholecalcif No cholecalci [facility] ghada ghada ferol [facility] (vitamin (vitamin (vitamin ty D3) 1,250 D3) 1,250 D3) 1,250 [facility]ospita mcg (50,000 mcg (50,000 mcg l unit) unit) (50,000 Clinics capsule capsule unit) TAKE 1 TAKE 1 capsule CAPSULE BY CAPSULE BY TAKE 1 MOUTH EVERY MOUTH EVERY CAPSULE BY 15 DAYS 15 DAYS MOUTH EVERY 15 DAYS glipizide glipizide No glipizide [facility] ER 2.5 mg ER 2.5 mg ER [...] BREAKFAST Humatrope 6 Humatrope 6 No Humatrope [facility] mg (18 mg (18 6 mg (18 [facility] unit) unit) unit) ty injection injection injection [facility] cartridge cartridge cartridge l INJECT INJECT INJECT [facility] 0.3MG 0.3MG 0.3MG SUBCUTANEOU SUBCUTANEOU SUBCUTANEO SLY ONCE A SLY ONCE A USLY ONCE DAY. DAY. A DAY. hydrocortis hydrocortis No hydrocorti [facility] one 20 mg one 20 mg sone 20 mg [facility] tablet TAKE tablet TAKE tablet ty 1 TABLET BY 1 TABLET BY TAKE 1 [facility]ospita MOUTH WITH MOUTH WITH TABLET BY l BREAKFAST BREAKFAST MOUTH WITH Clinics AND 2 AND 2 BREAKFAST TABLETS TABLETS AND 2 WITH WITH TABLETS DINNER. DINNER. WITH DINNER. levothyroxi levothyroxi No levothyrox [facility] ne 112 mcg ne 112 mcg ine 112 [facility] tablet TAKE tablet TAKE mcg tablet ty 1 TABLET BY 1 TABLET BY TAKE 1 Hospita MOUTH DAILY MOUTH DAILY TABLET BY l 1/2 HOUR 1/2 HOUR MOUTH Clinic s BEFORE BEFORE DAILY 1/2 BREAKFAST BREAKFAST HOUR WITH WATER WITH WATER BEFORE BREAKFAST WITH WATER liothyronin liothyronin No liothyroni [facility] e 5 mcg e 5 mcg ne [...] WITH WATER nitroglycer nitroglycer No 1 nitroglyce [facility] in 0.4 mg in 0.4 mg rin 0.4 mg [facility] sublingual sublingual sublingual ty tablet tablet tablet [facility]osp[facility] Place [address] 1 l tablet as tablet as tablet as Clinics needed by needed by needed by sublingual sublingual sublingual route. route. route. omeprazole omeprazole No omeprazole [facility] 40 mg 40 mg 40 mg Communi [...] l DAILY Clinics potassium potassium No potassium [facility] chloride ER chloride ER chloride [facility] 10 mEq 10 mEq ER 10 mEq ty tablet,exte tablet,exte tablet,ext [facility]ospita nded nded ended l release release release Clinic s TAKE 1 TAKE 1 TAKE 1 TABLET BY TABLET BY TABLET BY MOUTH EVERY MOUTH EVERY MOUTH DAY WITH DAY WITH EVERY DAY FOOD FOOD WITH FOOD tizanidine tizanidine No 1 Q1D tizanidine [facility] 2 mg tablet 2 mg tablet 2 mg [facility] Take 1 Take 1 tablet ty tablet tablet Take 1 Hospita every day every day tablet l by oral by oral every day Clin ics route. route. by oral route. tramadol 50 tramadol 50 No tramadol [facility] mg tablet mg tablet 50 mg Comm uni TAKE 1 TAKE 1 tablet ty TABLET BY TABLET BY TAKE 1 [facility] MOUTH EVERY MOUTH EVERY TABLET BY l 12 HOURS 12 HOURS MOUTH Clinics NEEDED FOR NEEDED FOR EVERY 12 PAIN PAIN HOURS NEEDED FOR PAIN trazodone trazodone No 1 Q1D trazodone [facility] 100 mg 100 mg 100 mg [facility] tablet Take tablet Take tablet ty 1 tablet 1 tablet Take 1 Hos[facility] ta every day every day tablet l by oral by oral every day Clin ics route at route at by oral bedtime for bedtime for route at 30 days. 30 days. bedtime for 30 days. trazodone trazodone No trazodone [facility] 50 mg 50 mg 50 mg [facility] tablet TAKE tablet TAKE tablet ty 1 TABLET BY 1 TABLET BY TAKE 1 [facility]ospita MOUTH EVERY MOUTH EVERY TABLET BY l DAY DAY MOUTH Clinics EVERY DAY amlodipine amlodipine No amlodipine [facility] 5 mg tablet 5 mg tablet 5 mg [facility] TAKE 1 TAKE 1 tablet ty TABLET BY TABLET BY TAKE 1 [facility] MOUTH EVERY MOUTH EVERY TABLET BY l DAY FOR 90 DAY FOR 90 MOUTH Cl inics DAYS DAYS EVERY DAY FOR 90 DAYS atorvastati atorvastati No atorvastat [facility] n 20 mg n 20 mg in 20 mg Commu ni tablet TAKE tablet TAKE tablet ty 1 TABLET BY 1 TABLET BY TAKE 1 Hospita MOUTH EVERY MOUTH EVERY TABLET BY l DAY DAY MOUTH Clinics EVERY DAY BD [facility] 2nd BD [facility] 2nd No BD Kalee [facility] Gen Pen Gen Pen 2nd Gen Commun i Needle 32 Needle 32 Pen Needle ty gauge x gauge x 32 gauge x [facility] " USE " USE " USE l ONE TIME A ONE TIME A ONE TIME A Clinics DAY DAY DAY cholecalcif cholecalcif No cholecalci [facility] ghada ghada ferol [facility] (vitamin (vitamin (vitamin ty D3) 1,250 D3) 1,250 D3) 1,250 [facility]osp[facility] mcg (50,000 mcg (50,000 mcg l unit) unit) (50,000 Clinics capsule capsule unit) TAKE 1 TAKE 1 capsule CAPSULE BY CAPSULE BY TAKE 1 MOUTH EVERY MOUTH EVERY CAPSULE BY 15 DAYS 15 DAYS MOUTH EVERY 15 DAYS glipizide glipizide No glipizide [facility] ER 2.5 mg ER 2.5 mg ER [...] BREAKFAST Humatrope 6 Humatrope 6 No Humatrope [facility] mg (18 mg (18 6 mg (18 [facility] unit) unit) unit) ty injection injection injection [facility] cartridge cartridge cartridge l INJECT INJECT INJECT [facility] 0.3MG 0.3MG 0.3MG SUBCUTANEOU SUBCUTANEOU SUBCUTANEO SLY ONCE A SLY ONCE A USLY ONCE DAY. DAY. A DAY. hydrocortis hydrocortis No hydrocorti [facility] one 20 mg one 20 mg sone 20 mg [facility] tablet TAKE tablet TAKE tablet ty 1 TABLET BY 1 TABLET BY TAKE 1 [facility]ospita MOUTH WITH MOUTH WITH TABLET BY l BREAKFAST BREAKFAST MOUTH WITH Clinics AND 2 AND 2 BREAKFAST TABLETS TABLETS AND 2 WITH WITH TABLETS DINNER. DINNER. WITH DINNER. levothyroxi levothyroxi No levothyrox [facility] ne 112 mcg ne 112 mcg ine 112 [facility] tablet TAKE tablet TAKE mcg tablet ty 1 TABLET BY 1 TABLET BY TAKE 1 Hospita MOUTH DAILY MOUTH DAILY TABLET BY l 1/2 HOUR 1/2 HOUR MOUTH Clinic s BEFORE BEFORE DAILY 1/2 BREAKFAST BREAKFAST HOUR WITH WATER WITH WATER BEFORE BREAKFAST WITH WATER liothyronin liothyronin No liothyroni [facility] e 5 mcg e 5 mcg ne [...] WITH WATER nitroglycer nitroglycer No 1 nitroglyce [facility] in 0.4 mg in 0.4 mg rin 0.4 mg [facility] sublingual sublingual sublingual ty tablet tablet tablet [facility]osp[facility] Place [address] 1 l tablet as tablet as tablet as Clinics needed by needed by needed by sublingual sublingual sublingual route. route. route. omeprazole omeprazole No omeprazole [facility] 40 mg 40 mg 40 mg Communi [...] l DAILY Clinics potassium potassium No potassium [facility] chloride ER chloride ER chloride [facility] 10 mEq 10 mEq ER 10 mEq ty tablet,exte tablet,exte tablet,ext [facility]ospita nded nded ended l release release release Clinic s TAKE 1 TAKE 1 TAKE 1 TABLET BY TABLET BY TABLET BY MOUTH EVERY MOUTH EVERY MOUTH DAY WITH DAY WITH EVERY DAY FOOD FOOD WITH FOOD tramadol 50 tramadol 50 No tramadol [facility] mg tablet mg tablet 50 mg Comm uni TAKE 1 TAKE 1 tablet ty TABLET BY TABLET BY TAKE 1 [facility] MOUTH EVERY MOUTH EVERY TABLET BY l 12 HOURS 12 HOURS MOUTH Clinics NEEDED FOR NEEDED FOR EVERY 12 PAIN PAIN HOURS NEEDED FOR PAIN amlodipine amlodipine No amlodipine [facility] 5 mg tablet 5 mg tablet 5 mg [facility] 1 po qd 1 po qd tablet 1 ty po qd Hospita l Clinics amlodipine amlodipine No amlodipine [facility] 5 mg tablet 5 mg tablet 5 mg [facility] TAKE 1 TAKE 1 tablet ty TABLET BY TABLET BY TAKE 1 [facility] MOUTH EVERY MOUTH EVERY TABLET BY l DAY FOR 90 DAY FOR 90 MOUTH Cl inics DAYS DAYS EVERY DAY FOR 90 DAYS atorvastati atorvastati No atorvastat [facility] n 20 mg n 20 mg in 20 mg Commu ni tablet TAKE tablet TAKE tablet ty 1 TABLET BY 1 TABLET BY TAKE 1 Hospita MOUTH EVERY MOUTH EVERY TABLET BY l DAY DAY MOUTH Clinics EVERY DAY BD [facility] 2nd BD [facility] 2nd No BD Kalee [facility] Gen Pen Gen Pen 2nd Gen Commun i Needle 32 Needle 32 Pen Needle ty gauge x gauge x 32 gauge x [facility] 5/32" USE 5/32" USE 5/32" USE l ONE TIME A ONE TIME A ONE TIME A Clinics DAY DAY DAY cholecalcif cholecalcif No cholecalci [facility] ghada ghada ferol [facility] (vitamin (vitamin (vitamin ty D3) 1,250 D3) 1,250 D3) 1,250 [facility]osp[facility] mcg (50,000 mcg (50,000 mcg l unit) unit) (50,000 Clinics capsule capsule unit) TAKE 1 TAKE 1 capsule CAPSULE BY CAPSULE BY TAKE 1 MOUTH EVERY MOUTH EVERY CAPSULE BY 15 DAYS 15 DAYS MOUTH EVERY 15 DAYS glipizide glipizide No glipizide [facility] ER 2.5 mg ER 2.5 mg ER [...] BREAKFAST Humatrope 6 Humatrope 6 No Humatrope [facility] mg (18 mg (18 6 mg (18 [facility] unit) unit) unit) ty injection injection injection [facility] cartridge cartridge cartridge l INJECT INJECT INJECT Clinics 0.3MG 0.3MG 0.3MG SUBCUTANEOU SUBCUTANEOU SUBCUTANEO SLY ONCE A SLY ONCE A USLY ONCE DAY. DAY. A DAY. hydrocortis hydrocortis No hydrocorti [facility] one 20 mg one 20 mg sone 20 mg [facility] tablet TAKE tablet TAKE tablet ty 1 TABLET BY 1 TABLET BY TAKE 1 [facility]ospita MOUTH WITH MOUTH WITH TABLET BY l BREAKFAST BREAKFAST MOUTH WITH Clinics AND 2 AND 2 BREAKFAST TABLETS TABLETS AND 2 WITH WITH TABLETS DINNER. DINNER. WITH DINNER. levothyroxi levothyroxi No levothyrox [facility] ne 112 mcg ne 112 mcg ine 112 [facility] tablet TAKE tablet TAKE mcg tablet ty 1 TABLET BY 1 TABLET BY TAKE 1 Hospita MOUTH DAILY MOUTH DAILY TABLET BY l 1/2 HOUR 1/2 HOUR MOUTH Clinic s BEFORE BEFORE DAILY 1/2 BREAKFAST BREAKFAST HOUR WITH WATER WITH WATER BEFORE BREAKFAST WITH WATER atorvastati atorvastati No atorvastat [facility] n 40 mg n 40 mg in 40 mg Commu ni tablet 1 PO tablet 1 PO tablet 1 ty qd qd PO qd [facility] liothyronin liothyronin No liothyroni [facility] e 5 mcg e 5 mcg ne [...] WITH WATER nitroglycer nitroglycer No 1 nitroglyce [facility] in 0.4 mg in 0.4 mg rin 0.4 mg [facility] sublingual sublingual sublingual ty tablet tablet tablet [facility] [address] 1 l tablet as tablet as tablet as Clinics needed by needed by needed by sublingual sublingual sublingual route. route. route. omeprazole omeprazole No omeprazole [facility] 40 mg 40 mg 40 mg Communi [...] l DAILY Clinics potassium potassium No potassium [facility] chloride ER chloride ER chloride [facility] 10 mEq 10 mEq ER 10 mEq ty tablet,exte tablet,exte tablet,ext [facility]ospita nded nded ended l release release release Clinic s TAKE 1 TAKE 1 TAKE 1 TABLET BY TABLET BY TABLET BY MOUTH EVERY MOUTH EVERY MOUTH DAY WITH DAY WITH EVERY DAY FOOD FOOD WITH FOOD ramelteon 8 ramelteon 8 No 1 Q1D ramelteon [facility] mg tablet mg tablet 8 mg Commu ni Take 1 Take 1 tablet ty tablet tablet Take 1 Hospita every day every day tablet l by oral by oral every day Clin ics route. route. by oral route. tramadol 50 tramadol 50 No tramadol [facility] mg tablet mg tablet 50 mg Comm uni TAKE 1 TAKE 1 tablet ty TABLET BY TABLET BY TAKE 1 [facility] MOUTH EVERY MOUTH EVERY TABLET BY l 12 HOURS 12 HOURS MOUTH Clinics NEEDED FOR NEEDED FOR EVERY 12 PAIN PAIN HOURS NEEDED FOR PAIN cholecalcif cholecalcif No cholecalci [facility] ghada ghada ferol [facility] (vitamin (vitamin (vitamin ty D3) 1,250 D3) 1,250 D3) 1,250 [facility]osp[facility] mcg (50,000 mcg (50,000 mcg l unit) unit) (50,000 Clinics capsule capsule unit) TAKE 1 TAKE 1 capsule CAPSULE CAPSULE TAKE 1 EVERY 15 EVERY 15 CAPSULE DAYS DAYS EVERY 15 DAYS clonazepam clonazepam No clonazepam [facility] 0.5 mg 0.5 mg 0.5 mg [facility] tablet TAKE tablet TAKE tablet ty 1 TABLET BY 1 TABLET BY TAKE 1 Hospita MOUTH TWICE MOUTH TWICE TABLET BY l A DAY A DAY MOUTH Clinic s DIRECTED DIRECTED TWICE A DAY DIRECTED Dexilant 60 Dexilant 60 No Dexilant [facility] mg capsule, mg capsule, 60 mg [facility] delayed delayed capsule, ty release 1 release 1 delayed [facility] po qd po qd release 1 l po qd Clinics amlodipine amlodipine No amlodipine [facility] 5 mg tablet 5 mg tablet 5 mg [facility] TAKE 1 TAKE 1 tablet ty TABLET BY TABLET BY TAKE 1 [facility] MOUTH EVERY MOUTH EVERY TABLET BY l DAY FOR 90 DAY FOR 90 MOUTH Cl inics DAYS DAYS EVERY DAY FOR 90 DAYS atorvastati atorvastati No atorvastat [facility] n 20 mg n 20 mg in 20 mg Commu ni tablet TAKE tablet TAKE tablet ty 1 TABLET BY 1 TABLET BY TAKE 1 [facility]ospita MOUTH EVERY MOUTH EVERY TABLET BY l DAY DAY MOUTH Clinics EVERY DAY BD [facility] 2nd BD [facility] 2nd No BD [facility] Gen Pen Gen Pen 2nd Gen Commun i Needle 32 Needle 32 Pen Needle ty gauge x gauge x 32 gauge x [facility] 5/32" USE 532" USE 532" USE l TO INJECT 1 TO INJECT 1 TO INJECT Clinics TIME A DAY TIME A DAY 1 TIME A DAY cholecalcif cholecalcif No cholecalci [facility] ghada ghada ferol [facility]i (vitamin (vitamin (vitamin ty D3) 1,250 D3) 1,250 D3) 1,250 [facility]osp[facility] mcg (50,000 mcg (50,000 mcg l unit) unit) (50,000 Clinics capsule capsule unit) TAKE 1 TAKE 1 capsule CAPSULE BY CAPSULE BY TAKE 1 MOUTH EVERY MOUTH EVERY CAPSULE BY 15 DAYS 15 DAYS MOUTH EVERY 15 DAYS clonazepam clonazepam No clonazepam [facility] 0.5 mg 0.5 mg 0.5 mg [facility] tablet TAKE tablet TAKE tablet ty 1 TABLET BY 1 TABLET BY TAKE 1 [facility]ospita MOUTH EVERY MOUTH EVERY TABLET BY l DAY DAY MOUTH Clinics NEEDED NEEDED EVERY DAY NEEDED glipizide glipizide No glipizide [facility] ER 2.5 mg ER 2.5 mg ER 2.5 mg [facility] tablet, tablet, tablet, ty extended extended extended [facility] release 24 release 24 release 24 l hr TAKE 1 hr TAKE 1 hr TAKE 1 Clinics TABLET BY TABLET BY TABLET BY MOUTH ONCE MOUTH ONCE MOUTH ONCE EVERY EVERY EVERY Tuesday Humatrope 6 Humatrope 6 No Humatrope [facility] mg (18 mg (18 6 mg (18 Communi unit) unit) unit) ty injection injection injection [facility]osp[facility] cartridge cartridge cartridge l INJECT INJECT INJECT [facility] 0.3MG 0.3MG 0.3MG SUBCUTANEOU SUBCUTANEOU SUBCUTANEO SLY EVERY SLY EVERY USLY EVERY DAY DAY DAY hydrocortis hydrocortis No hydrocorti [facility] one 10 mg one 10 mg sone 10 mg [facility] tablet TAKE tablet TAKE tablet ty 2 TABLETS 2 TABLETS TAKE 2 [facility] BY MOUTH BY MOUTH TABLETS BY l WITH WITH MOUTH WITH Clinics BREAKFAST BREAKFAST BREAKFAST AND 1 AND 1 AND 1 TABLET WITH TABLET WITH TABLET DINNER DINNER WITH DINNER hydrocortis hydrocortis No hydrocorti [facility] one 20 mg one 20 mg sone [...] DAY EVERY DAY levothyroxi levothyroxi No levothyrox [facility] ne 100 mcg ne 100 mcg ine 100 Communi tablet TAKE tablet TAKE mcg tablet ty 1 TABLET BY 1 TABLET BY TAKE 1 Hospita MOUTH EVERY MOUTH EVERY TABLET BY l DAY IN THE DAY IN THE MOUTH Cl inics MORNING ON MORNING ON EVERY DAY EMPTY EMPTY IN THE STOMACH STOMACH MORNING ON EMPTY STOMACH liothyronin liothyronin No liothyroni [facility] e 5 mcg e 5 mcg ne 5 mcg Commu ni tablet TAKE tablet TAKE tablet ty 2 TABS BY 2 TABS BY TAKE 2 [facility] MOUTH TUES, MOUTH TUES, TABS BY l THURS, SAT, THURS, SAT, MOUTH Clinics SUN & 1 TAB SUN & 1 TAB TUES, MON, WED, TUE, WED, , FRI HALF HR FRI HALF HR SAT, SUN & BEFORE BEFORE 1 TAB MON, BREAKFAST BREAKFAST TUE, FRI WITH WATER WITH WATER HALF HR BEFORE BREAKFAST WITH WATER metformin metformin No metformin [facility] 500 mg 500 mg 500 mg [facility] tablet TAKE tablet TAKE tablet ty 1 TABLET BY 1 TABLET BY TAKE 1 [facility]ospita MOUTH WITH MOUTH WITH TABLET BY l BREAKFAST BREAKFAST MOUTH WITH Clinics AND 1 AND 1 BREAKFAST TABLET WITH TABLET WITH AND 1 DINNER DINNER TABLET WITH DINNER mupirocin 2 mupirocin 2 No mupirocin [facility] % topical % topical 2 % Commu [...] DAY PRN nitroglycer nitroglycer No 1 nitroglyce [facility] in 0.4 mg in 0.4 mg rin [...] Clinics potassium potassium No 3 Q1D potassium [facility] chloride ER chloride ER chloride Communi 10 [...] morning. morning. morning. fenofibrate fenofibrate No fenofibrat [facility] nanocrystal nanocrystal e [facility] lized 145 lized 145 nanocrysta ty mg tablet mg tablet llized 145 Hospita TAKE 1 TAKE 1 mg tablet l TABLET BY TABLET BY TAKE 1 Cli nics MOUTH EVERY MOUTH EVERY TABLET BY DAY DAILY DAY DAILY MOUTH ORALLY 90 ORALLY 90 EVERY DAY DAILY ORALLY 90 tramadol 50 tramadol 50 No tramadol [facility] mg tablet mg tablet 50 mg Comm uni TAKE 1 TAKE 1 tablet ty TABLET BY TABLET BY TAKE 1 [facility] MOUTH EVERY MOUTH EVERY TABLET BY l 12 HOURS 12 HOURS MOUTH Clinics NEEDED FOR NEEDED FOR EVERY 12 PAIN PAIN HOURS NEEDED FOR PAIN glipizide glipizide No glipizide [facility] ER 2.5 mg ER 2.5 mg ER [...] TAB Tue FRI hydrocortis hydrocortis No hydrocorti [facility] one 20 mg one 20 mg sone [...] HALF IN PM amlodipine amlodipine No amlodipine [facility] 5 mg tablet 5 mg tablet 5 mg [facility] TAKE 1 TAKE 1 tablet ty TABLET BY TABLET BY TAKE 1 [facility] MOUTH EVERY MOUTH EVERY TABLET BY l DAY FOR 90 DAY FOR 90 MOUTH Cl inics DAYS DAYS EVERY DAY FOR 90 DAYS atorvastati atorvastati No atorvastat [facility] n 20 mg n 20 mg in 20 mg Commu ni tablet TAKE tablet TAKE tablet ty 1 TABLET BY 1 TABLET BY TAKE 1 Hospita MOUTH EVERY MOUTH EVERY TABLET BY l DAY DAY MOUTH Clinics EVERY DAY BD [facility] 2nd BD [facility] 2nd No BD [facility] Gen Pen Gen Pen 2nd Gen Commun i Needle 32 Needle 32 Pen Needle ty gauge x gauge x 32 gauge x [facility] " USE " USE " USE l TO INJECT 1 TO INJECT 1 TO INJECT Clinics TIME A DAY TIME A DAY 1 TIME A DAY cholecalcif cholecalcif No cholecalci [facility] ghada ghada ferol Communi (vitamin (vitamin (vitamin ty D3) 1,250 D3) 1,250 D3) 1,250 [facility]ospita mcg (50,000 mcg (50,000 mcg l unit) unit) (50,000 Clinics capsule capsule unit) TAKE 1 TAKE 1 capsule CAPSULE BY CAPSULE BY TAKE 1 MOUTH EVERY MOUTH EVERY CAPSULE BY 15 DAYS 15 DAYS MOUTH EVERY 15 DAYS clonazepam clonazepam No clonazepam [facility] 0.5 mg 0.5 mg 0.5 mg Communi tablet TAKE tablet TAKE tablet ty 1 TABLET BY 1 TABLET BY TAKE 1 [facility]ospita MOUTH EVERY MOUTH EVERY TABLET BY l DAY DAY MOUTH Clinics NEEDED NEEDED EVERY DAY NEEDED famotidine famotidine No famotidine [facility] 20 mg 20 mg 20 mg [facility]i tablet TAKE tablet TAKE tablet ty 1 TABLET BY 1 TABLET BY TAKE 1 [facility]ospita MOUTH TWICE MOUTH TWICE TABLET BY l A DAY FOR A DAY FOR MOUTH Clin ics 30 DAYS 30 DAYS TWICE A DAY FOR 30 DAYS fluticasone fluticasone No fluticason [facility] propionate propionate e Com raz 0.05 % 0.05 % propionate ty topical topical 0.05 % Hospita cream APPLY cream APPLY topical l TO AFFECTED TO AFFECTED cream Clinics AREA TWICE AREA TWICE APPLY TO A DAY A DAY AFFECTED AREA TWICE A DAY Klor-Con 10 Klor-Con 10 No Klor-Con [facility] mEq mEq 10 mEq Communi tablet,exte tablet,exte tablet,ext ty nded nded ended Hospita release 1 release 1 release 1 l po qd po qd po qd Clinics fluticasone fluticasone No 1spray( Q1D fluticason [facility] propionate propionate s) e Com raz 50 50 propionate ty mcg/actuati mcg/actuati 50 H [facility]spita on nasal on nasal mcg/actuat l spray,suspe spray,suspe ion nasal Clinics nsion Peculiar nsion Peculiar spray,susp 1 spray 1 spray ension every day every day Peculiar 1 by by spray intranasal intranasal every day route. route. by intranasal route. glipizide glipizide No glipizide [facility] ER 2.5 mg ER 2.5 mg ER 2.5 mg Communi tablet, tablet, tablet, ty extended extended extended [facility] release 24 release 24 release 24 l hr TAKE 1 hr TAKE 1 hr TAKE 1 Clinics TABLET BY TABLET BY TABLET BY MOUTH ONCE MOUTH ONCE MOUTH ONCE EVERY EVERY Tuesday Humatrope 6 Humatrope 6 No Humatrope [facility] mg (18 mg (18 6 mg (18 [facility]i unit) unit) unit) ty [facility] cartridge l INJECT INJECT INJECT [facility] 0.3MG 0.3MG 0.3MG SUBCUTANEOU SUBCUTANEOU SUBCUTANEO SLY EVERY SLY EVERY USLY EVERY DAY DAY DAY hydrocortis hydrocortis No hydrocorti [facility] one 10 mg one 10 mg sone 10 mg [facility]i tablet TAKE tablet TAKE tablet ty 2 TABLETS 2 TABLETS TAKE 2 [facility] BY MOUTH BY MOUTH TABLETS BY l WITH WITH MOUTH WITH Clinics BREAKFAST BREAKFAST BREAKFAST AND 1 AND 1 AND 1 TABLET WITH TABLET WITH TABLET DINNER DINNER WITH DINNER hydrocortis hydrocortis No hydrocorti [facility] one 20 mg one 20 mg sone 20 mg Communi tablet TAKE tablet TAKE tablet ty 1 TABLET BY 1 TABLET BY TAKE 1 Hospita MOUTH WITH MOUTH WITH TABLET BY l BREAKFAST BREAKFAST MOUTH WITH Clinics AND 2 AND 2 BREAKFAST TABLETS TABLETS AND 2 WITH WITH TABLETS DINNER. DINNER. WITH DINNER. levothyroxi levothyroxi No levothyrox [facility] ne 100 mcg ne 100 mcg ine 100 Communi tablet TAKE tablet TAKE mcg tablet ty 1 TABLET BY 1 TABLET BY TAKE 1 Hospita MOUTH EVERY MOUTH EVERY TABLET BY l DAY IN THE DAY IN THE MOUTH Cl inics MORNING ON MORNING ON EVERY DAY EMPTY EMPTY IN THE STOMACH STOMACH MORNING ON EMPTY STOMACH liothyronin liothyronin No liothyroni [facility] e 5 mcg e 5 mcg ne [...] BREAKFAST WITH WATER metformin metformin No metformin [facility] 500 mg 500 mg 500 mg Communi tablet TAKE tablet TAKE tablet ty 1 TABLET BY 1 TABLET BY TAKE 1 Hospita MOUTH WITH MOUTH WITH TABLET BY l BREAKFAST BREAKFAST MOUTH WITH Clinics AND 1 AND 1 BREAKFAST TABLET WITH TABLET WITH AND 1 DINNER DINNER TABLET WITH DINNER metronidazo metronidazo No 1 Q8H metronidaz [facility] le 500 mg le 500 mg ole 500 mg Communi tablet Take tablet Take tablet ty 1 tablet 1 tablet Take 1 Hospi ta every 8 every 8 tablet l hours by hours by every 8 Clin ics oral route oral route hours by for 7 days. for 7 days. oral route for 7 days. mupirocin 2 mupirocin 2 No mupirocin [facility] % topical % topical 2 % Commu [...] PER DAY NEEDED levothyroxi levothyroxi No levothyrox [facility] ne 112 mcg ne 112 mcg ine 112 Communi tablet tablet mcg tablet ty Hospita l Clinics nitroglycer nitroglycer No 1 nitroglyce [facility] in 0.4 mg in 0.4 mg rin [...] DAILY potassium potassium No 3 Q1D potassium [facility] chloride ER chloride ER chloride Communi 10 [...] morning. morning. morning. sucralfate sucralfate No sucralfate [facility] 100 mg/mL 100 mg/mL 100 mg/mL Communi oral oral oral ty suspension suspension suspension [facility] TAKE 10 ML TAKE 10 ML TAKE 10 ML l 1 HOUR 1 HOUR 1 HOUR Clinics BEFORE BEFORE BEFORE MEALS ON AN MEALS ON AN MEALS ON EMPTY EMPTY AN EMPTY STOMACH STOMACH STOMACH ORALLY ORALLY ORALLY THREE TIMES THREE TIMES THREE A DAY 14 A DAY 14 TIMES A DAYS DAYS DAY 14 DAYS tramadol 50 tramadol 50 No tramadol [facility] mg tablet mg tablet 50 mg Comm uni TAKE 1 TAKE 1 tablet ty TABLET BY TABLET BY TAKE 1 [facility] MOUTH EVERY MOUTH EVERY TABLET BY l 12 HOURS 12 HOURS MOUTH Clinics NEEDED FOR NEEDED FOR EVERY 12 PAIN PAIN HOURS NEEDED FOR PAIN levothyroxi levothyroxi No levothyrox [facility] ne 125 mcg ne 125 mcg ine 125 Communi tablet 1 po tablet 1 po mcg tablet ty qd qd 1 po qd [facility] liothyronin liothyronin No liothyroni [facility] e 5 mcg e 5 mcg ne [...] tablet 1 ty qd qd po qd [facility] losartan 50 losartan 50 No losartan [facility] mg tablet mg tablet 50 mg Comm uni tablet ty [facility] methscopola methscopola No methscopol [facility] mine 5 mg mine 5 mg amine 5 mg Communi tablet TAKE tablet TAKE tablet ty 1 TABLET BY 1 TABLET BY TAKE 1 [facility] MOUTH EVERY MOUTH EVERY TABLET BY l DAY DAY MOUTH Clinics EVERY DAY nitroglycer nitroglycer No 1 nitroglyce [facility] in 0.4 mg in 0.4 mg rin 0.4 mg Communi sublingual sublingual sublingual ty tablet tablet tablet [facility] [address] 1 l tablet as tablet as tablet as Clinics needed by needed by needed by sublingual sublingual sublingual route. route. route. Omnitrope 5 Omnitrope 5 No Omnitrope [facility] mg/1.5 mL mg/1.5 mL 5 mg/1.5 [facility] om[facility]i (3.3 mg/mL) (3.3 mg/mL) mL (3.3 ty subcutaneou subcutaneou mg/mL) [facility] s cartridge s cartridge subcutaneo l 1 SC daily 1 SC daily us Cli nics cartridge 1 SC daily OneTouch OneTouch No OneTouch Swe madeleine Delica Delica Delica Communi Lancets 30 Lancets 30 Lancets 30 ty gauge TEST gauge TEST gauge TEST [facility] TWICE A DAY TWICE A DAY TWICE A l DAY Clinics OneTouch OneTouch No OneTouch Swe madeleine Verio Flex Verio Flex Verio Flex Communi Meter FOR Meter FOR Meter FOR ty TESTING.1 TESTING.1 TESTING.1 [facility] BOX ICD 10 BOX ICD 10 BOX ICD 10 l E11.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.65 Clinics OneTouch OneTouch No OneTouch Swe madeleine Verio test Verio test Verio test Communi strips TEST strips TEST strips ty TWICE A DAY TWICE A DAY TEST TWICE Hospita A DAY [facility] sotalol 160 sotalol 160 No sotalol [facility] mg tablet 1 mg tablet 1 160 mg Communi po bid po bid tablet 1 ty po bid [facility] sotalol 80 sotalol 80 No sotalol 80 [facility] mg tablet mg tablet mg tablet Communi ty [facility] warfarin 1 warfarin 1 No warfarin 1 [facility] mg tablet mg tablet mg tablet Communi ty [facility] warfarin 2 warfarin 2 No warfarin 2 [facility] mg tablet mg tablet mg tablet Communi [...] by oral route. amlodipine amlodipine No amlodipine [facility] 5 mg tablet 5 mg tablet 5 mg C ommuni TAKE 1 TAKE 1 tablet ty TABLET BY TABLET BY TAKE 1 [facility] MOUTH EVERY MOUTH EVERY TABLET BY l DAY DAY MOUTH Clinics EVERY DAY atorvastati atorvastati No atorvastat [facility] n 40 mg n 40 mg in 40 mg Commu ni tablet TAKE tablet TAKE tablet ty 1 TABLET BY 1 TABLET BY TAKE 1 Hospita MOUTH EVERY MOUTH EVERY TABLET BY l DAY DAY MOUTH Clinics EVERY DAY BD BD No BD [facility] Ultra-Fine Ultra-Fine Ultra-Fine Communi Kalee Pen Kalee Pen Kalee Pen ty Needle 32 Needle 32 Needle 32 Hospita gauge x gauge x gauge x l " " " Clinics cholecalcif cholecalcif No cholecalci [facility] ghada ghada ferol Communi (vitamin (vitamin (vitamin ty D3) 1,250 D3) 1,250 D3) 1,250 Hospita mcg (50,000 mcg (50,000 mcg l unit) unit) (50,000 Clinics capsule capsule unit) TAKE 1 TAKE 1 capsule CAPSULE CAPSULE TAKE 1 EVERY 15 EVERY 15 CAPSULE DAYS DAYS EVERY 15 DAYS clonazepam clonazepam No clonazepam [facility] 0.5 mg 0.5 mg 0.5 mg Communi tablet TAKE tablet TAKE tablet ty 1 TABLET BY 1 TABLET BY TAKE 1 Hospita MOUTH TWICE MOUTH TWICE TABLET BY l A DAY A DAY MOUTH Clinic s DIRECTED DIRECTED TWICE A DAY DIRECTED Dexilant 60 Dexilant 60 No Dexilant [facility] mg capsule, mg capsule, 60 mg Communi [...] DAY EVERY DAY fenofibrate fenofibrate No fenofibrat [facility] nanocrystal nanocrystal e C ommuni lized 145 lized 145 nanocrysta ty mg tablet mg tablet llized 145 Hospita TAKE 1 TAKE 1 mg tablet l TABLET BY TABLET BY TAKE 1 Cli nics MOUTH EVERY MOUTH EVERY TABLET BY DAY DAILY DAY DAILY MOUTH ORALLY 90 ORALLY 90 EVERY DAY DAILY ORALLY 90 glipizide glipizide No glipizide [facility] ER 2.5 mg ER 2.5 mg ER [...] MON WED TAB MON WED TAB MON Tue FRI hydrocortis hydrocortis No hydrocorti [facility] one 20 mg one 20 mg sone [...] PM Klor-Con 10 Klor-Con 10 No Klor-Con [facility] mEq mEq 10 mEq Commun[facility] tablet,exte tablet,exte tablet,ext ty nded nded ended Hospita release 1 release 1 release 1 l po qd po qd po qd [facility] levothyroxi levothyroxi No levothyrox [facility] ne 112 mcg ne 112 mcg ine 112 Communi tablet tablet mcg tablet ty Hospita [facility] levothyroxi levothyroxi No levothyrox [facility] ne 125 mcg ne 125 mcg ine 125 Communi tablet 1 po tablet 1 po mcg tablet ty qd qd 1 po qd Hospita [facility] liothyronin liothyronin No liothyroni [facility] e 5 mcg e 5 mcg ne [...] tablet 1 ty qd qd po qd [facility] losartan 50 losartan 50 No losartan [facility] mg tablet mg tablet 50 mg Comm uni tablet ty [facility] methscopola methscopola No methscopol [facility] mine 5 mg mine 5 mg amine 5 mg Communi tablet TAKE tablet TAKE tablet ty 1 TABLET BY 1 TABLET BY TAKE 1 [facility] MOUTH EVERY MOUTH EVERY TABLET BY l DAY DAY MOUTH Clinics EVERY DAY nitroglycer nitroglycer No 1 nitroglyce [facility] in 0.4 mg in 0.4 mg rin 0.4 mg Communi sublingual sublingual sublingual ty tablet tablet tablet [facility] [address] 1 l tablet as tablet as tablet as Clinics needed by needed by needed by sublingual sublingual sublingual route. route. route. Omnitrope 5 Omnitrope 5 No Omnitrope [facility] mg/1.5 mL mg/1.5 mL 5 mg/1.5 [facility] om[facility]i (3.3 mg/mL) (3.3 mg/mL) mL (3.3 ty subcutaneou subcutaneou mg/mL) [facility] s cartridge s cartridge subcutaneo l 1 SC daily 1 SC daily us Cli nics cartridge 1 SC daily OneTouch OneTouch No OneTouch Swe madeleine Delica Delica Delica Communi Lancets 30 Lancets 30 Lancets 30 ty gauge TEST gauge TEST gauge TEST [facility] TWICE A DAY TWICE A DAY TWICE A l DAY Clinics OneTouch OneTouch No OneTouch Swe madeleine Verio Flex Verio Flex Verio Flex [facility] Meter FOR Meter FOR Meter FOR ty TESTING.1 TESTING.1 TESTING.1 [facility] BOX ICD 10 BOX ICD 10 BOX ICD 10 l E11.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.65 Clinics OneTouch OneTouch No OneTouch Swe madeleine Verio test Verio test Verio test Communi strips TEST strips TEST strips ty TWICE A DAY TWICE A DAY TEST TWICE Hospita A DAY [facility] sotalol 160 sotalol 160 No sotalol [facility] mg tablet 1 mg tablet 1 160 mg Communi po bid po bid tablet 1 ty po bid Hospita l Clinics sotalol 80 sotalol 80 No sotalol 80 [facility] mg tablet mg tablet mg tablet Communi ty [facility] Clinics warfarin 1 warfarin 1 No warfarin 1 [facility] mg tablet mg tablet mg tablet Communi ty [facility] Clinics warfarin 2 warfarin 2 No warfarin 2 [facility] mg tablet mg tablet mg tablet Communi [...] by oral route. amlodipine amlodipine No amlodipine [facility] 5 mg tablet 5 mg tablet 5 mg C om[facility]i TAKE 1 TAKE 1 tablet ty TABLET BY TABLET BY TAKE 1 [facility] MOUTH EVERY MOUTH EVERY TABLET BY l DAY DAY MOUTH Clinics EVERY DAY atorvastati atorvastati No atorvastat [facility] n 40 mg n 40 mg in 40 mg Commu ni tablet TAKE tablet TAKE tablet ty 1 TABLET BY 1 TABLET BY TAKE 1 Hospita MOUTH EVERY MOUTH EVERY TABLET BY l DAY DAY MOUTH Clinics EVERY DAY BD BD No BD [facility] Ultra-Fine Ultra-Fine Ultra-Fine Communi Kalee Pen Kalee Pen Kalee Pen ty Needle 32 Needle 32 Needle 32 [facility] gauge x gauge x gauge x l " " " Clinics cholecalcif cholecalcif No cholecalci [facility] ghada ghada ferol [place] (vitamin (vitamin (vitamin ty D3) 1,250 D3) 1,250 D3) 1,250 [facility] mcg (50,000 mcg (50,000 mcg l unit) unit) (50,000 Clinics capsule capsule unit) TAKE 1 TAKE 1 capsule CAPSULE CAPSULE TAKE 1 EVERY 15 EVERY 15 CAPSULE DAYS DAYS EVERY 15 DAYS clonazepam clonazepam No clonazepam [facility] 0.5 mg 0.5 mg 0.5 mg [facility]i tablet TAKE tablet TAKE tablet ty 1 TABLET BY 1 TABLET BY TAKE 1 Hospita MOUTH TWICE MOUTH TWICE TABLET BY l A DAY A DAY MOUTH Clinic s DIRECTED DIRECTED TWICE A DAY DIRECTED Dexilant 60 Dexilant 60 No Dexilant [facility] mg capsule, mg capsule, 60 mg Communi delayed delayed capsule, ty release 1 release 1 delayed Ho spita po qd po qd release 1 l po qd Clinics docusate docusate No docusate Swe madleeine sodium 100 sodium 100 sodium 100 Communi mg capsule mg capsule mg capsule ty TAKE 1 TAKE 1 TAKE 1 Hospita CAPSULE BY CAPSULE BY CAPSULE BY l MOUTH EVERY MOUTH EVERY MOUTH Clinics DAY DAY EVERY DAY fenofibrate fenofibrate No fenofibrat [facility] nanocrystal nanocrystal e C ommuni lized 145 lized 145 nanocrysta ty mg tablet mg tablet llized 145 Hospita TAKE 1 TAKE 1 mg tablet l TABLET BY TABLET BY TAKE 1 Cli nics MOUTH EVERY MOUTH EVERY TABLET BY DAY DAILY DAY DAILY MOUTH ORALLY 90 ORALLY 90 EVERY DAY DAILY ORALLY 90 glipizide glipizide No glipizide [facility] ER 2.5 mg ER 2.5 mg ER [...] TAB Tue FRI hydrocortis hydrocortis No hydrocorti [facility] one 20 mg one 20 mg sone 20 mg [facility] tablet TAKE tablet TAKE tablet ty 1 BID for 3 1 BID for 3 TAKE 1 BID Hospita days days for 3 days l Clinics Klor-Con 10 Klor-Con 10 No Klor-Con [facility] mEq mEq 10 mEq Commun[facility] tablet,exte tablet,exte tablet,ext ty nded nded ended Hospita release 1 release 1 release 1 l po qd po qd po qd [facility] levothyroxi levothyroxi No levothyrox [facility] ne 112 mcg ne 112 mcg ine 112 Communi tablet tablet mcg tablet ty Hospita [facility] levothyroxi levothyroxi No levothyrox [facility] ne 125 mcg ne 125 mcg ine 125 Communi tablet 1 po tablet 1 po mcg tablet ty qd qd 1 po qd Hosp[facility] liothyronin liothyronin No liothyroni [facility] e 5 mcg e 5 mcg ne [...] tablet 1 ty qd qd po qd [facility] losartan 50 losartan 50 No losartan [facility] mg tablet mg tablet 50 mg Comm uni tablet ty [facility] methscopola methscopola No methscopol [facility] mine 5 mg mine 5 mg amine 5 mg [facility] tablet TAKE tablet TAKE tablet ty 1 TABLET BY 1 TABLET BY TAKE 1 [facility] MOUTH EVERY MOUTH EVERY TABLET BY l DAY DAY MOUTH Clinics EVERY DAY nitroglycer nitroglycer No 1 nitroglyce [facility] in 0.4 mg in 0.4 mg rin 0.4 mg Communi sublingual sublingual sublingual ty tablet tablet tablet [facility] [address] 1 l tablet as tablet as tablet as Clinics needed by needed by needed by sublingual sublingual sublingual route. route. route. Omnitrope 5 Omnitrope 5 No Omnitrope [facility] mg/1.5 mL mg/1.5 mL 5 mg/1.5 C om[facility]i (3.3 mg/mL) (3.3 mg/mL) mL (3.3 ty subcutaneou subcutaneou mg/mL) [facility] s cartridge s cartridge subcutaneo l 1 SC daily 1 SC daily us Cli nics cartridge 1 SC daily OneTouch OneTouch No OneTouch Swe madeleine Delica Delica Delica [facility] Lancets 30 Lancets 30 Lancets 30 ty gauge TEST gauge TEST gauge TEST [facility] TWICE A DAY TWICE A DAY [...] Clinics sotalol 160 sotalol 160 No sotalol [facility] mg tablet mg tablet 160 mg Com raz TAKE 1 TAKE 1 tablet ty TABLET BY TABLET BY TAKE 1 [facility] MOUTH TWICE MOUTH TWICE TABLET BY l A DAY A DAY MOUTH Clinics TWICE A DAY sotalol 80 sotalol 80 No sotalol 80 [facility] mg tablet mg tablet mg tablet Communi ty [facility] Clinics tramadol 50 tramadol 50 No 1 Q6H tramadol [facility] mg tablet mg tablet 50 mg Comm uni Take 1 Take 1 tablet ty tablet tablet Take 1 Hospita every 6 every 6 tablet l hours by hours by every 6 Clin ics oral route. oral route. hours by oral route. warfarin 1 warfarin 1 No warfarin 1 [facility] mg tablet mg tablet mg tablet Communi ty [facility] l [facility] warfarin 2 warfarin 2 No warfarin 2 [facility] mg tablet mg tablet mg tablet Communi [...] by oral route. amlodipine amlodipine No amlodipine [facility] 5 mg tablet 5 mg tablet 5 mg C om[facility]i TAKE 1 TAKE 1 tablet ty TABLET BY TABLET BY TAKE 1 [facility] MOUTH EVERY MOUTH EVERY TABLET BY l DAY DAY MOUTH Clinics EVERY DAY atorvastati atorvastati No atorvastat [facility] n 40 mg n 40 mg in 40 mg Commu ni tablet TAKE tablet TAKE tablet ty 1 TABLET BY 1 TABLET BY TAKE 1 Hospita MOUTH EVERY MOUTH EVERY TABLET BY l DAY DAY MOUTH Clinics EVERY DAY BD BD No BD [facility] Ultra-Fine Ultra-Fine Ultra-Fine Communi Kalee Pen Kalee Pen Kalee Pen ty Needle 32 Needle 32 Needle 32 Hospita gauge x gauge x gauge x l " " " Clinics cholecalcif cholecalcif No cholecalci [facility] ghada ghada ferol Liam (vitamin (vitamin (vitamin ty D3) 1,250 D3) 1,250 D3) 1,250 [facility]osp[facility] mcg (50,000 mcg (50,000 mcg l unit) unit) (50,000 Clinics capsule capsule unit) TAKE 1 TAKE 1 capsule CAPSULE CAPSULE TAKE 1 EVERY 15 EVERY 15 CAPSULE DAYS DAYS EVERY 15 DAYS clonazepam clonazepam No clonazepam [facility] 0.5 mg 0.5 mg 0.5 mg [facility]i tablet TAKE tablet TAKE tablet ty 1 TABLET BY 1 TABLET BY TAKE 1 Hospita MOUTH TWICE MOUTH TWICE TABLET BY l A DAY A DAY MOUTH Clinic s DIRECTED DIRECTED TWICE A DAY DIRECTED Dexilant 60 Dexilant 60 No Dexilant [facility] mg capsule, mg capsule, 60 mg Communi [...] DAY EVERY DAY fenofibrate fenofibrate No fenofibrat [facility] nanocrystal nanocrystal e C ommuni lized 145 lized 145 nanocrysta ty mg tablet mg tablet llized 145 Hospita TAKE 1 TAKE 1 mg tablet l TABLET BY TABLET BY TAKE 1 Cli nics MOUTH EVERY MOUTH EVERY TABLET BY DAY DAY MOUTH EVERY DAY glipizide glipizide No glipizide [facility] ER 2.5 mg ER 2.5 mg ER [...] 1 TAB Tue TAB Tue TAB MON TUE FRI WED FRI hydrocortis hydrocortis No hydrocorti [facility] one 20 mg one 20 mg sone 20 mg [facility] tablet TAKE tablet TAKE tablet ty 1 BID for 3 1 BID for 3 TAKE 1 BID Hospita days days for 3 days l Clinics Klor-Con 10 Klor-Con 10 No Klor-Con [facility] mEq mEq 10 mEq [facility] tablet,exte tablet,exte tablet,ext ty nded nded ended Hospita release 1 release 1 release 1 l po qd po qd po qd Clinics levothyroxi levothyroxi No levothyrox [facility] ne 112 mcg ne 112 mcg ine 112 Communi tablet tablet mcg tablet ty [facility] l Clinics levothyroxi levothyroxi No levothyrox [facility] ne 125 mcg ne 125 mcg ine 125 Communi tablet 1 po tablet 1 po mcg tablet ty qd qd 1 po qd [facility] liothyronin liothyronin No liothyroni [facility] e 5 mcg e 5 mcg ne [...] tablet 1 ty qd qd po qd [facility] losartan 50 losartan 50 No losartan [facility] mg tablet mg tablet 50 mg Comm uni tablet ty [facility] methscopola methscopola No methscopol [facility] mine 5 mg mine 5 mg amine 5 mg [facility] tablet TAKE tablet TAKE tablet ty 1 TABLET BY 1 TABLET BY TAKE 1 [facility] MOUTH EVERY MOUTH EVERY TABLET BY l DAY DAY MOUTH Clinics EVERY DAY nitroglycer nitroglycer No 1 nitroglyce [facility] in 0.4 mg in 0.4 mg rin 0.4 mg Communi sublingual sublingual sublingual ty tablet tablet tablet [facility] [address] 1 l tablet as tablet as tablet as Clinics needed by needed by needed by sublingual sublingual sublingual route. route. route. Omnitrope 5 Omnitrope 5 No Omnitrope [facility] mg/1.5 mL mg/1.5 mL 5 mg/1.5 [facility]i (3.3 mg/mL) (3.3 mg/mL) mL (3.3 ty subcutaneou subcutaneou mg/mL) [facility] s cartridge s cartridge subcutaneo l 1 SC daily 1 SC daily us Cli nics cartridge 1 SC daily OneTouch OneTouch No OneTouch Swe madeleine Delica Delica Delica [facility] Lancets 30 Lancets 30 Lancets 30 ty gauge TEST gauge TEST gauge TEST [facility] TWICE A DAY TWICE A DAY [...] Clinics sotalol 160 sotalol 160 No sotalol [facility] mg tablet mg tablet 160 mg Com raz TAKE 1 TAKE 1 tablet ty TABLET BY TABLET BY TAKE 1 [facility] MOUTH TWICE MOUTH TWICE TABLET BY l A DAY A DAY MOUTH Clinics TWICE A DAY sotalol 80 sotalol 80 No sotalol 80 [facility] mg tablet mg tablet mg tablet [facility] tramadol 50 tramadol 50 No tramadol [facility] mg tablet mg tablet 50 mg Comm uni Take 1 Take 1 tablet ty tablet tablet Take 1 Hospita every 6 every 6 tablet l hours by hours by every 6 Clin ics oral route. oral route. hours by oral route. warfarin 1 warfarin 1 No warfarin 1 [facility] mg tablet mg tablet mg tablet [facility] warfarin 2 warfarin 2 No warfarin 2 [facility] mg tablet mg tablet mg tablet Communi [...] by oral route. amlodipine amlodipine No amlodipine [facility] 5 mg tablet 5 mg tablet 5 mg C om[facility]i TAKE 1 TAKE 1 tablet ty TABLET BY TABLET BY TAKE 1 [facility] MOUTH EVERY MOUTH EVERY TABLET BY l DAY DAY MOUTH Clinics EVERY DAY atorvastati atorvastati No atorvastat [facility] n 40 mg n 40 mg in 40 mg Commu ni tablet TAKE tablet TAKE tablet ty 1 TABLET BY 1 TABLET BY TAKE 1 Hospita MOUTH EVERY MOUTH EVERY TABLET BY l DAY DAY MOUTH Clinics EVERY DAY BD BD No BD [facility] Ultra-Fine Ultra-Fine Ultra-Fine Communi Kalee Pen Kalee Pen Kalee Pen ty Needle 32 Needle 32 Needle 32 Hospita gauge x gauge x gauge x l 5/32" " " Clinics cholecalcif cholecalcif No cholecalci [facility] ghada ghada ferol [place] (vitamin (vitamin (vitamin ty D3) 1,250 D3) 1,250 D3) 1,250 [facility] mcg (50,000 mcg (50,000 mcg l unit) unit) (50,000 Clinics capsule capsule unit) TAKE 1 TAKE 1 capsule CAPSULE CAPSULE TAKE 1 EVERY 15 EVERY 15 CAPSULE DAYS DAYS EVERY 15 DAYS clonazepam clonazepam No clonazepam [facility] 0.5 mg 0.5 mg 0.5 mg Communi tablet TAKE tablet TAKE tablet ty 1 TABLET BY 1 TABLET BY TAKE 1 Hospita MOUTH TWICE MOUTH TWICE TABLET BY l A DAY A DAY MOUTH Clinic s DIRECTED DIRECTED TWICE A DAY DIRECTED Dexilant 60 Dexilant 60 No Dexilant [facility] mg capsule, mg capsule, 60 mg Communi [...] DAY EVERY DAY fenofibrate fenofibrate No fenofibrat [facility] nanocrystal nanocrystal e C ommuni lized 145 lized 145 nanocrysta ty mg tablet mg tablet llized 145 Hospita TAKE 1 TAKE 1 mg tablet l TABLET BY TABLET BY TAKE 1 Cli nics MOUTH EVERY MOUTH EVERY TABLET BY DAY DAY MOUTH EVERY DAY glipizide glipizide No glipizide [facility] ER 2.5 mg ER 2.5 mg ER [...] SUN AND 1 SUN AND 1 TAB TUE WED TAB MON TUE TAB MON FRI FRI WED FRI hydrocortis hydrocortis No hydrocorti [facility] one 20 mg one 20 mg sone 20 mg [facility]i tablet TAKE tablet TAKE tablet ty 1 BID for 3 1 BID for 3 TAKE 1 BID Hospita days days for 3 days l Clinics Klor-Con 10 Klor-Con 10 No Klor-Con [facility] mEq mEq 10 mEq Communi tablet,exte tablet,exte tablet,ext ty nded nded ended [facility] release 1 release 1 release 1 l po qd po qd po qd Clinics levothyroxi levothyroxi No levothyrox [facility] ne 112 mcg ne 112 mcg ine 112 Communi tablet tablet mcg tablet ty [facility] levothyroxi levothyroxi No levothyrox [facility] ne 125 mcg ne 125 mcg ine 125 Communi tablet 1 po tablet 1 po mcg tablet ty qd qd 1 po qd [facility] liothyronin liothyronin No liothyroni [facility] e 5 mcg e 5 mcg ne [...] tablet 1 ty qd qd po qd [facility] losartan 50 losartan 50 No losartan [facility] mg tablet mg tablet 50 mg Comm uni tablet ty [facility] methscopola methscopola No methscopol [facility] mine 5 mg mine 5 mg amine 5 mg [facility]i tablet TAKE tablet TAKE tablet ty 1 TABLET BY 1 TABLET BY TAKE 1 [facility] MOUTH EVERY MOUTH EVERY TABLET BY l DAY DAY MOUTH Clinics EVERY DAY nitroglycer nitroglycer No 1 nitroglyce [facility] in 0.4 mg in 0.4 mg rin 0.4 mg Communi sublingual sublingual sublingual ty tablet tablet tablet [facility] [address] 1 l tablet as tablet as tablet as Clinics needed by needed by needed by sublingual sublingual sublingual route. route. route. Omnitrope 5 Omnitrope 5 No Omnitrope [facility] mg/1.5 mL mg/1.5 mL 5 mg/1.5 C om[facility]i (3.3 mg/mL) (3.3 mg/mL) mL (3.3 ty subcutaneou subcutaneou mg/mL) [facility] s cartridge s cartridge subcutaneo l [...] Clinics sotalol 160 sotalol 160 No sotalol [facility] mg tablet mg tablet 160 mg Com raz TAKE 1 TAKE 1 tablet ty TABLET BY TABLET BY TAKE 1 [facility] MOUTH TWICE MOUTH TWICE TABLET BY l A DAY A DAY MOUTH Clinics TWICE A DAY sotalol 80 sotalol 80 No sotalol 80 [facility] mg tablet mg tablet mg tablet [facility] tramadol 50 tramadol 50 No tramadol [facility] mg tablet mg tablet 50 mg Comm uni Take 1 Take 1 tablet ty tablet tablet Take 1 Hospita every 6 every 6 tablet l hours by hours by every 6 Clin ics oral route. oral route. hours by oral route. warfarin 1 warfarin 1 No warfarin 1 [facility] mg tablet mg tablet mg tablet [facility] warfarin 2 warfarin 2 No warfarin 2 [facility] mg tablet mg tablet mg tablet Communi [...] by oral route. amlodipine amlodipine No amlodipine [facility] 5 mg tablet 5 mg tablet 5 mg C [facility] TAKE 1 TAKE 1 tablet ty TABLET BY TABLET BY TAKE 1 [facility] MOUTH EVERY MOUTH EVERY TABLET BY l DAY DAY MOUTH Clinics EVERY DAY atorvastati atorvastati No atorvastat [facility] n 40 mg n 40 mg in 40 mg Commu ni tablet TAKE tablet TAKE tablet ty 1 TABLET BY 1 TABLET BY TAKE 1 Hospita MOUTH EVERY MOUTH EVERY TABLET BY l DAY DAY MOUTH Clinics EVERY DAY BD BD No BD [facility] Ultra-Fine Ultra-Fine Ultra-Fine Communi Kalee Pen Kalee Pen Kalee Pen ty Needle 32 Needle 32 Needle 32 Hospita gauge x gauge x gauge x l " " " Clinics cholecalcif cholecalcif No cholecalci [facility] ghada ghada ferol Communi (vitamin (vitamin (vitamin ty D3) 1,250 D3) 1,250 D3) 1,250 [facility]ospita mcg (50,000 mcg (50,000 mcg l unit) unit) (50,000 Clinics capsule capsule unit) TAKE 1 TAKE 1 capsule CAPSULE CAPSULE TAKE 1 EVERY 15 EVERY 15 CAPSULE DAYS DAYS EVERY 15 DAYS clonazepam clonazepam No clonazepam [facility] 0.5 mg 0.5 mg 0.5 mg [facility]i tablet TAKE tablet TAKE tablet ty 1 TABLET BY 1 TABLET BY TAKE 1 Hospita MOUTH TWICE MOUTH TWICE TABLET BY l A DAY A DAY MOUTH Clinic s DIRECTED DIRECTED TWICE A PRn PRn DAY DIRECTED PRn Dexilant 60 Dexilant 60 No Dexilant [facility] mg capsule, mg capsule, 60 mg Communi [...] DAY EVERY DAY fenofibrate fenofibrate No fenofibrat [facility] nanocrystal nanocrystal e C [facility] lized 145 lized 145 nanocrysta ty mg tablet mg tablet llized 145 [facility]ospita TAKE 1 TAKE 1 mg tablet l TABLET BY TABLET BY TAKE 1 Cli nics MOUTH EVERY MOUTH EVERY TABLET BY DAY DAY MOUTH EVERY DAY glipizide glipizide No glipizide [facility] ER 2.5 mg ER 2.5 mg ER [...] FRI WED FRI hydrocortis hydrocortis No hydrocorti [facility] one 20 mg one 20 mg sone 20 mg [facility] tablet TAKE tablet TAKE tablet ty 1 BID for 3 1 BID for 3 TAKE 1 BID Hospita days days for 3 days [facility] Klor-Con 10 Klor-Con 10 No Klor-Con [facility] mEq mEq 10 mEq Commun[facility] tablet,exte tablet,exte tablet,ext ty nded nded ended Hospita release 1 release 1 release 1 l po qd po qd po qd Clinics levothyroxi levothyroxi No levothyrox [facility] ne 125 mcg ne 125 mcg ine 125 Communi tablet 1 po tablet 1 po mcg tablet [facility]d [facility] lidocaine 5 No lidocaine [facility] % topical % topical 5 % Commu ni patch APPLY patch APPLY topical ty 1 PATCH BY 1 PATCH BY patch Ho spita TOPICAL TOPICAL APPLY 1 l ROUTE ONCE ROUTE ONCE PATCH BY Clinics DAILY (MAY DAILY (MAY TOPICAL WEAR UP TO WEAR UP TO ROUTE ONCE 12HOURS.) 12HOURS.) DAILY (MAY WEAR UP TO 12HOURS.) liothyronin liothyronin No liothyroni [facility] e 5 mcg e 5 mcg ne [...] tablet 1 ty qd qd po qd [facility] methscopola methscopola No methscopol [facility] mine 5 mg mine 5 mg amine 5 mg [facility]i tablet TAKE tablet TAKE tablet ty 1 TABLET BY 1 TABLET BY TAKE 1 Hospita MOUTH EVERY MOUTH EVERY TABLET BY l DAY DAY MOUTH Clinics EVERY DAY nitroglycer nitroglycer No 1 nitroglyce [facility] in 0.4 mg in 0.4 mg rin 0.4 mg Communi sublingual sublingual sublingual ty tablet tablet tablet Hospita Place [address] 1 l tablet as tablet as tablet as Clinics needed by needed by needed by sublingual sublingual sublingual route. route. route. Omnitrope 5 Omnitrope 5 No Omnitrope [facility] mg/1.5 mL mg/1.5 mL 5 mg/1.5 [facility] (3.3 mg/mL) (3.3 mg/mL) mL (3.3 ty subcutaneou subcutaneou mg/mL) [facility] s cartridge s cartridge subcutaneo l 1 SC daily 1 SC daily us Cli nics cartridge 1 SC daily OneTouch OneTouch No OneTouch Swe madeleine Delica Delica [facility] Lancets 30 Lancets 30 Lancets 30 ty gauge TEST gauge TEST gauge [facility] TWICE A DAY TWICE A DAY TWICE [...] Clinics sotalol 160 sotalol 160 No sotalol [facility] mg tablet mg tablet 160 mg Com raz TAKE 1 TAKE 1 tablet ty TABLET BY TABLET BY TAKE 1 [facility] MOUTH TWICE MOUTH TWICE TABLET BY l A DAY A DAY MOUTH Clinics TWICE A DAY tramadol 50 tramadol 50 No tramadol [facility] mg tablet mg tablet 50 mg Comm uni Take 1 Take 1 tablet ty tablet tablet Take 1 Hospita every 6 every 6 tablet l hours by hours by every 6 Clin ics oral route. oral route. hours by oral route. warfarin 1 warfarin 1 No warfarin 1 [facility] mg tablet mg tablet mg tablet Communi Takes MWF T[facility] warfar[facility] 2 warfarin 2 No warfarin 2 [facility] mg tablet mg tablet mg tablet Communi TAKE 1 TAKE 1 TAKE 1 ty TABLET BY TABLET BY TABLET BY Hospita MOUTH EVERY MOUTH EVERY MOUTH l DAY DAY EVERY DAY Clinics amlodipine amlodipine No amlodipine [facility] 5 mg tablet 5 mg tablet 5 mg C [facility] TAKE 1 TAKE 1 tablet ty TABLET BY TABLET BY TAKE 1 [facility] MOUTH EVERY MOUTH EVERY TABLET BY l DAY DAY MOUTH Clinics EVERY DAY atorvastati atorvastati No atorvastat [facility] n 40 mg n 40 mg in 40 mg Commu ni tablet TAKE tablet TAKE tablet ty 1 TABLET BY 1 TABLET BY TAKE 1 Hospita MOUTH EVERY MOUTH EVERY TABLET BY l DAY DAY MOUTH Clinics EVERY DAY BD BD No BD [facility] Ultra-Fine Ultra-Fine Ultra-Fine Communi Kalee Pen Kalee Pen Kalee Pen ty Needle 32 Needle 32 Needle 32 Hospita gauge x gauge x gauge x l " " " Clinics cholecalcif cholecalcif No cholecalci [facility] ghada ghada ferol Communi (vitamin (vitamin (vitamin ty D3) 1,250 D3) 1,250 D3) 1,250 [facility]ospita mcg (50,000 mcg (50,000 mcg l unit) unit) (50,000 Clinics capsule capsule unit) TAKE 1 TAKE 1 capsule CAPSULE CAPSULE TAKE 1 EVERY 15 EVERY 15 CAPSULE DAYS DAYS EVERY 15 DAYS clonazepam clonazepam No clonazepam [facility] 0.5 mg 0.5 mg 0.5 mg Communi tablet TAKE tablet TAKE tablet ty 1 TABLET BY 1 TABLET BY TAKE 1 Hospita MOUTH TWICE MOUTH TWICE TABLET BY l A DAY A DAY MOUTH Clinic s DIRECTED DIRECTED TWICE A PRn PRn DAY DIRECTED PRn Dexilant 60 Dexilant 60 No Dexilant [facility] mg capsule, mg capsule, 60 mg Communi [...] DAY EVERY DAY fenofibrate fenofibrate No fenofibrat [facility] nanocrystal nanocrystal e C [facility] lized 145 lized 145 nanocrysta ty mg tablet mg tablet llized 145 Hospita TAKE 1 TAKE 1 mg tablet l TABLET BY TABLET BY TAKE 1 Cli nics MOUTH EVERY MOUTH EVERY TABLET BY DAY DAY MOUTH EVERY DAY glipizide glipizide No glipizide [facility] ER 2.5 mg ER 2.5 mg ER [...] TAB MON WED TAB MON FRI FRI TUE FRI hydrocortis hydrocortis No hydrocorti [facility] one 20 mg one 20 mg sone 20 mg Communi tablet TAKE tablet TAKE tablet ty 1 BID for 3 1 BID for 3 TAKE 1 BID Hospita days days for 3 days [facility] Klor-Con 10 Klor-Con 10 No Klor-Con [facility] mEq mEq 10 mEq Communi tablet,exte tablet,exte tablet,ext ty nded nded ended Hospita release 1 release 1 release 1 l po qd po qd po qd [facility] levothyroxi levothyroxi No levothyrox [facility] ne 112 mcg ne 112 mcg ine 112 Communi tablet tablet [facility]cg [facility] levothyroxi No levothyrox [facility] ne 125 mcg ne 125 mcg ine 125 Communi tablet 1 po tablet 1 po mcg tablet ty qd qd 1 po qd [facility] lidocaine 5 lidocaine 5 No lidocaine [facility] % topical % topical 5 % Commu ni patch APPLY patch APPLY topical ty 1 PATCH BY 1 PATCH BY patch Ho spita TOPICAL TOPICAL APPLY 1 l ROUTE ONCE ROUTE ONCE PATCH BY Clinics DAILY (MAY DAILY (MAY TOPICAL WEAR UP TO WEAR UP TO ROUTE ONCE 12HOURS.) 12HOURS.) DAILY (MAY WEAR UP TO 12HOURS.) liothyronin liothyronin No liothyroni [facility] e 5 mcg e 5 mcg ne [...] Hospita l Clinics methscopola methscopola No methscopol [facility] mine 5 mg mine 5 mg amine 5 mg Communi tablet TAKE tablet TAKE tablet ty 1 TABLET BY 1 TABLET BY TAKE 1 Hospita MOUTH EVERY MOUTH EVERY TABLET BY l DAY DAY MOUTH Clinics EVERY DAY nitroglycer nitroglycer No 1 nitroglyce [facility] in 0.4 mg in 0.4 mg rin 0.4 mg Communi sublingual sublingual sublingual ty tablet tablet tablet Hospita Place [address] 1 l tablet as tablet as tablet as Clinics needed by needed by needed by sublingual sublingual sublingual route. route. route. Omnitrope 5 Omnitrope 5 No Omnitrope [facility] mg/1.5 mL mg/1.5 mL 5 mg/1.5 [facility] (3.3 mg/mL) (3.3 mg/mL) mL (3.3 ty subcutaneou subcutaneou mg/mL) [facility] cartridge [facility] cartridge subcutaneo l 1 SC daily 1 SC daily us Cli nics cartridge 1 SC daily OneTouch OneTouch No OneTouch Swe madeleine Delica Delica [facility] Lancets 30 Lancets 30 Lancets 30 ty gauge TEST gauge TEST gauge TEST [facility] TWICE A DAY TWICE A DAY TWICE [...] Clinics sotalol 160 sotalol 160 No sotalol [facility] mg tablet mg tablet 160 mg Com raz TAKE 1 TAKE 1 tablet ty TABLET BY TABLET BY TAKE 1 [facility] MOUTH TWICE MOUTH TWICE TABLET BY l A DAY A DAY MOUTH Clinics TWICE A DAY tramadol 50 tramadol 50 No 1 Q6H tramadol [facility] mg tablet mg tablet 50 mg Comm uni Take 1 Take 1 tablet ty tablet tablet Take 1 Hospita every 6 every 6 tablet l hours by hours by every 6 Clin ics oral route. oral route. hours by oral route. warfarin 1 warfarin 1 No warfarin 1 [facility] mg tablet mg tablet mg tablet Communi Takes MWF Takes MWF Takes MWF ty [facility] Clinics warfarin 2 warfarin 2 No warfarin 2 [facility] mg tablet mg tablet mg tablet Communi TAKE 1 TAKE 1 TAKE 1 ty TABLET BY TABLET BY TABLET BY Hospita MOUTH EVERY MOUTH EVERY MOUTH l DAY DAY EVERY DAY Clinics acetaminoph acetaminoph No acetaminop [facility] en 300 en 300 hen 300 Communi mg-codeine mg-codeine mg-codeine ty 30 mg 30 mg 30 mg Hospita tablet Take tablet Take tablet l 1 tablet 1 tablet Take 1 Clini cs Q4-6 hr PRN Q4-6 hr PRN tablet for pain for pain Q4-6 hr PRN for pain amlodipine amlodipine No amlodipine [facility] 5 mg tablet 5 mg tablet 5 mg C [facility]i TAKE 1 TAKE 1 tablet ty TABLET BY TABLET BY TAKE 1 [facility] MOUTH EVERY MOUTH EVERY TABLET BY l DAY DAY MOUTH Clinics EVERY DAY atorvastati atorvastati No atorvastat [facility] n 40 mg n 40 mg in 40 mg Commu ni tablet TAKE tablet TAKE tablet ty 1 TABLET BY 1 TABLET BY TAKE 1 Hospita MOUTH EVERY MOUTH EVERY TABLET BY l DAY DAY MOUTH Clinics EVERY DAY BD BD No BD [facility] Ultra-Fine Ultra-Fine Ultra-Fine Communi Kalee Pen Kalee Pen Kalee Pen ty Needle 32 Needle 32 Needle 32 Hospita gauge x gauge x gauge x l " " " Clinics cholecalcif cholecalcif No cholecalci [facility] ghada ghada ferol Communi (vitamin (vitamin (vitamin ty D3) 1,250 D3) 1,250 [facility] (50,000 mcg l unit) unit) (50,000 Clinics capsule capsule unit) TAKE 1 TAKE 1 capsule CAPSULE CAPSULE TAKE 1 EVERY 15 EVERY 15 CAPSULE DAYS DAYS EVERY 15 DAYS cholestyram cholestyram No cholestyra [facility] ine (with ine (with mine (with Communi [...] DIRECTED BEDTIME DIRECTED clonazepam clonazepam No clonazepam [facility] 0.5 mg 0.5 mg 0.5 mg Communi tablet TAKE tablet TAKE tablet ty 1 TABLET BY 1 TABLET BY TAKE 1 Hospita MOUTH TWICE MOUTH TWICE TABLET BY l A DAY A DAY MOUTH Clinic s DIRECTED DIRECTED TWICE A PRn PRn DAY DIRECTED PRn Dexilant 60 Dexilant 60 No Dexilant [facility] mg capsule, mg capsule, 60 mg Communi delayed delayed capsule, ty release release delayed Hospit a TAKE 1 TAKE 1 release l CAPSULE BY CAPSULE BY TAKE 1 C linics MOUTH DAILY MOUTH DAILY CAPSULE BY NEEDS NEEDS MOUTH OFFICE OFFICE DAILY VISIT FOR VISIT FOR NEEDS ADDITIONAL ADDITIONAL OFFICE REFILLS REFILLS VISIT FOR ADDITIONAL REFILLS diphenoxyla diphenoxyla No diphenoxyl [facility] te-atropine te-atropine ate-atropi Communi 2.5 2.5 ne [...] DAY EVERY DAY fenofibrate fenofibrate No fenofibrat [facility] nanocrystal nanocrystal e C [facility] lized 145 lized 145 nanocrysta ty mg tablet mg tablet llized 145 Hospita TAKE 1 TAKE 1 mg tablet l TABLET BY TABLET BY TAKE 1 Cli nics MOUTH EVERY MOUTH EVERY TABLET BY DAY DAY MOUTH EVERY DAY glipizide glipizide No glipizide [facility] ER 2.5 mg ER 2.5 mg ER [...] TAB Tue FRI hydrocortis hydrocortis No hydrocorti [facility] one 20 mg one 20 mg sone 20 mg Communi tablet TAKE tablet TAKE tablet ty 1 BID for 3 1 BID for 3 TAKE 1 BID Hospita days days for 3 days l [facility] Klor-Con 10 Klor-Con 10 No Klor-Con [facility] mEq mEq 10 mEq Communi tablet,exte tablet,exte tablet,ext ty nded nded ended Hospita release 1 release 1 release 1 l po qd po qd po qd [facility] levothyroxi levothyroxi No levothyrox [facility] ne 112 mcg ne 112 mcg ine 112 Communi tablet tablet mcg tablet ty [facility] levothyroxi levothyroxi No levothyrox [facility] ne 125 mcg ne 125 mcg ine 125 Communi tablet 1 po tablet 1 po mcg tablet ty qd qd 1 po qd [facility] lidocaine 5 lidocaine 5 No lidocaine [facility] % topical % topical 5 % Commu ni patch APPLY patch APPLY topical ty 1 PATCH BY 1 PATCH BY patch Ho spita TOPICAL TOPICAL APPLY 1 l ROUTE ONCE ROUTE ONCE PATCH BY Clinics DAILY (MAY DAILY (MAY TOPICAL WEAR UP TO WEAR UP TO ROUTE ONCE 12HOURS.) 12HOURS.) DAILY (MAY WEAR UP TO 12HOURS.) liothyronin liothyronin No liothyroni [facility] e 5 mcg e 5 mcg ne [...] tablet 1 ty qd qd po qd [facility] methscopola methscopola No methscopol [facility] mine 5 mg mine 5 mg amine 5 mg Communi tablet TAKE tablet TAKE tablet ty 1 TABLET BY 1 TABLET BY TAKE 1 [facility] MOUTH EVERY MOUTH EVERY TABLET BY l DAY DAY MOUTH Clinics EVERY DAY nitroglycer nitroglycer No 1 nitroglyce [facility] in 0.4 mg in 0.4 mg rin 0.4 mg Communi sublingual sublingual sublingual ty tablet tablet tablet [facility] [address] 1 l tablet as tablet as tablet as Clinics needed by needed by needed by sublingual sublingual sublingual route. route. route. Omnitrope 5 Omnitrope 5 No Omnitrope [facility] mg/1.5 mL mg/1.5 mL 5 mg/1.5 C [...] Clinics sotalol 160 sotalol 160 No sotalol [facility] mg tablet mg tablet 160 mg Com raz TAKE 1 TAKE 1 tablet ty TABLET BY TABLET BY TAKE 1 [facility] MOUTH TWICE MOUTH TWICE TABLET BY l A DAY A DAY MOUTH Clinics TWICE A DAY tramadol 50 tramadol 50 No tramadol [facility] mg tablet mg tablet 50 mg Comm uni TAKE 1 TAKE 1 tablet ty TABLET TABLET TAKE 1 Hospita EVERY 6 EVERY 6 TABLET l HOURS BY HOURS BY EVERY 6 Clin ics ORAL ROUTE. ORAL ROUTE. HOURS BY ORAL ROUTE. warfarin 1 warfarin 1 No warfarin 1 [facility] mg tablet mg tablet mg tablet Communi Takes MWF Takes MWF Takes MWF ty Hospita l Clinics warfarin 2 warfarin 2 No warfarin 2 [facility] mg tablet mg tablet mg tablet Communi TAKE 1 TAKE 1 TAKE 1 ty TABLET BY TABLET BY TABLET BY Hospita MOUTH EVERY MOUTH EVERY MOUTH l DAY DAY EVERY DAY Clinics amlodipine amlodipine No amlodipine [facility] 5 mg tablet 5 mg tablet 5 mg [facility] TAKE 1 TAKE 1 tablet ty TABLET BY TABLET BY TAKE 1 [facility] MOUTH EVERY MOUTH EVERY TABLET BY l DAY DAY MOUTH Clinics EVERY DAY atorvastati atorvastati No atorvastat [facility] n 40 mg n 40 mg in 40 mg Commu ni tablet TAKE tablet TAKE tablet ty 1 TABLET BY 1 TABLET BY TAKE 1 Hospita MOUTH EVERY MOUTH EVERY TABLET BY l DAY DAY MOUTH Clinics EVERY DAY BD Kalee 2nd BD Kalee 2nd No BD Kalee [facility] Gen Pen Gen Pen 2nd Gen Commun i Needle 32 Needle 32 Pen Needle ty gauge x gauge x 32 gauge x [facility] " 1 " 1 " 1 l TIME A DAY TIME A DAY TIME A DAY Clinics cholecalcif cholecalcif No cholecalci [facility] ghada ghada ferol Communi (vitamin (vitamin (vitamin ty D3) 1,250 D3) 1,250 D3) 1,250 Hospita mcg (50,000 mcg (50,000 mcg l unit) unit) (50,000 Clinics capsule capsule unit) TAKE 1 TAKE 1 capsule CAPSULE CAPSULE TAKE 1 EVERY 15 EVERY 15 CAPSULE DAYS DAYS EVERY 15 DAYS clonazepam clonazepam No clonazepam [facility] 0.5 mg 0.5 mg 0.5 mg Communi tablet TAKE tablet TAKE tablet ty 1 TABLET BY 1 TABLET BY TAKE 1 Hospita MOUTH TWICE MOUTH TWICE TABLET BY l A DAY A DAY MOUTH Clinic s DIRECTED DIRECTED TWICE A PRn PRn DAY DIRECTED PRn Eliquis 5 Eliquis 5 No Eliquis 5 [facility] mg tablet mg tablet mg tablet Communi TAKE 1 TAKE 1 TAKE 1 ty TABLET BY TABLET BY TABLET BY Hospita MOUTH 2 MOUTH 2 MOUTH 2 l (TWO) TIMES (TWO) TIMES (TWO) Clinics DAILY. DAILY. TIMES INDICATIONS INDICATIONS DAILY. ATRIAL ATRIAL INDICATION FIBRILLATIO FIBRILLATIO S ATRIAL N N FIBRILLATI ON fenofibrate fenofibrate No fenofibrat [facility] nanocrystal nanocrystal e C [facility] lized 145 lized 145 nanocrysta ty mg tablet mg tablet llized 145 Hospita TAKE 1 TAKE 1 mg tablet l TABLET BY TABLET BY TAKE 1 Cli nics MOUTH EVERY MOUTH EVERY TABLET BY DAY DAY MOUTH EVERY DAY Humatrope 6 Humatrope 6 No Humatrope [facility] mg (18 mg (18 6 mg (18 Communi unit) unit) unit) ty injection injection injection Hospita cartridge cartridge cartridge l inject 0.2 inject 0.2 inject 0.2 Clinics ml SQ daily ml SQ daily ml SQ daily hydrocortis hydrocortis No hydrocorti [facility] one 20 mg one 20 mg sone [...] HALF IN PM isosorbide isosorbide No isosorbide [facility] mononitrate mononitrate mononitrat Communi ER 30 mg ER 30 mg e ER 30 mg t y tablet,exte tablet,exte tablet,ext Hospita nded nded ended l release 24 release 24 release 24 Clinics hr TAKE 1 hr TAKE 1 hr TAKE 1 TABLET BY TABLET BY TABLET BY MOUTH EVERY MOUTH EVERY MOUTH DAY DAY EVERY DAY Klor-Con 10 Klor-Con 10 No Klor-Con [facility] mEq mEq 10 mEq Communi tablet,exte tablet,exte tablet,ext ty nded nded ended Hospita release release release l TAKE 1 TAKE 1 TAKE 1 Clinics TABLET BY TABLET BY TABLET BY MOUTH EVERY MOUTH EVERY MOUTH DAY WITH DAY WITH EVERY DAY FOOD FOOD WITH FOOD levothyroxi levothyroxi No levothyrox [facility] ne 112 mcg ne 112 mcg ine [...] tablet 1 ty qd qd po qd [facility] mirtazapine mirtazapine No mirtazapin [facility] 15 mg 15 mg e 15 mg Communi tablet TAKE tablet TAKE tablet ty 1 TABLET BY 1 TABLET BY TAKE 1 Hospita MOUTH MOUTH TABLET BY l EVERYDAY AT EVERYDAY AT MOUTH Clinics BEDTIME BEDTIME EVERYDAY AT BEDTIME nitroglycer nitroglycer No 1 nitroglyce [facility] in 0.4 mg in 0.4 mg rin [...] Santyl 250 Santyl 250 No Santyl 250 [facility] unit/gram unit/gram unit/gram Communi topical topical topical ty ointment ointment ointment [facility] APPLY A APPLY A APPLY A l DIONY [facility] THICK THICK THICK AMOUNT TO AMOUNT TO AMOUNT TO WOUND 3 WOUND 3 WOUND 3 TIMES A TIMES A TIMES A WEEK WEEK WEEK simvastatin simvastatin No simvastati [facility] 40 mg 40 mg n 40 mg Communi tablet TAKE tablet TAKE tablet ty 1 TABLET 1 TABLET TAKE 1 Hospi ta (40 MG) BY (40 MG) BY TABLET (40 l MOUTH DAILY MOUTH DAILY MG) BY Clinics IN THE IN THE MOUTH EVENING NOT EVENING NOT DAILY IN TAKING TAKING THE EVENING NOT TAKING sotalol 160 sotalol 160 No sotalol [facility] mg tablet mg tablet 160 mg Com raz TAKE 1 TAKE 1 tablet ty TABLET BY TABLET BY TAKE 1 [facility] MOUTH EVERY MOUTH EVERY TABLET BY l DAY DAY MOUTH Clinics EVERY DAY tramadol 50 tramadol 50 No tramadol [facility] mg tablet mg tablet 50 mg Comm uni TAKE 1 TAKE 1 tablet ty TABLET TABLET TAKE 1 Hospita EVERY 6 EVERY 6 TABLET l HOURS BY HOURS BY EVERY 6 Clin ics ORAL ROUTE. ORAL ROUTE. HOURS BY ORAL ROUTE. amlodipine amlodipine No amlodipine [facility] 5 mg tablet 5 mg tablet 5 mg C [facility]i TAKE 1 TAKE 1 tablet ty TABLET BY TABLET BY TAKE 1 [facility] MOUTH EVERY MOUTH EVERY TABLET BY l DAY DAY MOUTH Clinics EVERY DAY atorvastati atorvastati No atorvastat [facility] n 40 mg n 40 mg in 40 mg Commu ni tablet TAKE tablet TAKE tablet ty 1 TABLET BY 1 TABLET BY TAKE 1 Hospita MOUTH EVERY MOUTH EVERY TABLET BY l DAY DAY MOUTH Clinics EVERY DAY BD Kalee 2nd BD Kalee 2nd No BD Kalee [facility] Gen Pen Gen Pen 2nd Gen Commun i Needle 32 Needle 32 Pen Needle ty gauge x gauge x 32 gauge x [facility] " 1 " 1 " 1 l TIME A DAY TIME A DAY TIME A DAY Clinics cholecalcif cholecalcif No cholecalci [facility] ghada ghada ferol Communi (vitamin (vitamin (vitamin ty D3) 1,250 D3) 1,250 D3) 1,250 [facility]ospita mcg (50,000 mcg (50,000 mcg l unit) unit) (50,000 Clinics capsule capsule unit) TAKE 1 TAKE 1 capsule CAPSULE CAPSULE TAKE 1 EVERY 15 EVERY 15 CAPSULE DAYS DAYS EVERY 15 DAYS clonazepam clonazepam No clonazepam [facility] 0.5 mg 0.5 mg 0.5 mg Communi tablet TAKE tablet TAKE tablet ty 1 TABLET BY 1 TABLET BY TAKE 1 Hospita MOUTH TWICE MOUTH TWICE TABLET BY l A DAY A DAY MOUTH Clinic s DIRECTED DIRECTED TWICE A PRn PRn DAY DIRECTED PRn dicyclomine dicyclomine No 1capsul TID dicyclomin [facility] 10 mg 10 mg e(s) e 10 mg Communi capsule capsule capsule ty Take 1 Take 1 Take 1 Hospita capsule 3 capsule 3 capsule 3 l times a day times a day times a Clinics by oral by oral day by route as route as oral route needed. needed. as needed. doxycycline doxycycline No 1capsul BID doxycyclin [facility] hyclate 100 hyclate 100 e(s) e hyclate Communi mg capsule mg capsule 100 mg t y Take 1 Take 1 capsule Hospita capsule capsule Take 1 l twice a day twice a day capsule Clinics by oral by oral twice a route. route. day by oral route. Eliquis 5 Eliquis 5 No Eliquis 5 [facility] mg tablet mg tablet mg tablet Communi TAKE 1 TAKE 1 TAKE 1 ty TABLET BY TABLET BY TABLET BY Hospita MOUTH 2 MOUTH 2 MOUTH 2 l (TWO) TIMES (TWO) TIMES (TWO) Clinics DAILY. DAILY. TIMES INDICATIONS INDICATIONS DAILY. ATRIAL ATRIAL INDICATION FIBRILLATIO FIBRILLATIO S ATRIAL N N FIBRILLATI ON Humatrope 6 Humatrope 6 No Humatrope [facility] mg (18 mg (18 6 mg (18 Communi unit) unit) unit) ty injection injection injection [facility]osp[facility] cartridge cartridge cartridge l inject 0.2 inject 0.2 inject 0.2 Clinics ml SQ daily ml SQ daily ml SQ daily hydrocortis hydrocortis No hydrocorti [facility] one 20 mg one 20 mg sone [...] HALF IN PM isosorbide isosorbide No isosorbide [facility] mononitrate mononitrate mononitrat Communi ER 30 mg ER 30 mg e ER 30 mg t y tablet,exte tablet,exte tablet,ext Hospita nded nded ended l release 24 release 24 release 24 Clinics hr TAKE 1 hr TAKE 1 hr TAKE 1 TABLET BY TABLET BY TABLET BY MOUTH EVERY MOUTH EVERY MOUTH DAY DAY EVERY DAY Klor-Con 10 Klor-Con 10 No Klor-Con [facility] mEq mEq 10 mEq Communi tablet,exte tablet,exte tablet,ext ty nded nded ended Hospita release release release l TAKE 1 TAKE 1 TAKE 1 Clinics TABLET BY TABLET BY TABLET BY MOUTH EVERY MOUTH EVERY MOUTH DAY WITH DAY WITH EVERY DAY FOOD FOOD WITH FOOD levothyroxi levothyroxi No levothyrox [facility] ne 112 mcg ne 112 mcg ine [...] tablet 1 [facility] mirtazapine No mirtazapin [facility] 15 mg 15 mg e 15 mg Communi tablet TAKE tablet TAKE tablet ty 1 TABLET BY 1 TABLET BY TAKE 1 Hospita MOUTH MOUTH TABLET BY l EVERYDAY AT EVERYDAY AT MOUTH Clinics BEDTIME BEDTIME EVERYDAY AT BEDTIME nitroglycer nitroglycer No 1 nitroglyce [facility] in 0.4 mg in 0.4 mg rin 0.4 mg Communi sublingual sublingual sublingual ty tablet tablet tablet [facility] [address] 1 l [...] Santyl 250 Santyl 250 No Santyl 250 [facility] unit/gram unit/gram unit/gram Communi topical topical topical ty ointment ointment ointment [facility] APPLY A [facility] TO AMOUNT TO AMOUNT TO WOUND 3 WOUND 3 WOUND 3 TIMES A TIMES A TIMES A WEEK WEEK WEEK simvastatin simvastatin No simvastati [facility] 40 mg 40 mg n 40 mg Communi tablet TAKE tablet TAKE tablet ty 1 TABLET 1 TABLET TAKE 1 Hospi ta (40 MG) BY (40 MG) BY TABLET (40 l MOUTH DAILY MOUTH DAILY MG) BY Clinics IN THE IN THE MOUTH EVENING NOT EVENING NOT DAILY IN TAKING TAKING THE EVENING NOT TAKING sotalol 160 sotalol 160 No sotalol [facility] mg tablet mg tablet 160 mg Com raz TAKE 1 TAKE 1 tablet ty TABLET BY TABLET BY TAKE 1 [facility] MOUTH EVERY MOUTH EVERY TABLET BY l DAY DAY MOUTH Clinics EVERY DAY tramadol 50 tramadol 50 No tramadol [facility] mg tablet mg tablet 50 mg Comm uni TAKE 1 TAKE 1 tablet ty TABLET BY TABLET BY TAKE 1 [facility] MOUTH EVERY MOUTH EVERY TABLET BY l 6 HOURS 6 HOURS MOUTH Clinics EVERY 6 HOURS amlodipine amlodipine No amlodipine [facility] 5 mg tablet 5 mg tablet 5 mg C [facility] TAKE 1 TAKE 1 tablet ty TABLET BY TABLET BY TAKE 1 [facility] MOUTH EVERY MOUTH EVERY TABLET BY l DAY DAY MOUTH Clinics EVERY DAY atorvastati atorvastati No atorvastat [facility] n 40 mg n 40 mg in 40 mg Commu ni tablet TAKE tablet TAKE tablet ty 1 TABLET BY 1 TABLET BY TAKE 1 Hospita MOUTH EVERY MOUTH EVERY TABLET BY l DAY DAY MOUTH Clinics EVERY DAY BD Kalee 2nd BD Kalee 2nd No BD Kalee [facility] Gen Pen Gen Pen 2nd Gen Commun i Needle 32 Needle 32 Pen Needle ty gauge x gauge x 32 gauge x [facility] " 1 " 1 " 1 l TIME A DAY TIME A DAY TIME A DAY Clinics cholecalcif cholecalcif No cholecalci [facility] ghada ghada ferol Communi (vitamin (vitamin (vitamin ty D3) 1,250 D3) 1,250 D3) 1,250 [facility]ospita mcg (50,000 mcg (50,000 mcg l unit) unit) (50,000 Clinics capsule capsule unit) TAKE 1 TAKE 1 capsule CAPSULE CAPSULE TAKE 1 EVERY 15 EVERY 15 CAPSULE DAYS DAYS EVERY 15 DAYS clonazepam clonazepam No clonazepam [facility] 0.5 mg 0.5 mg 0.5 mg [facility] tablet TAKE tablet TAKE tablet ty 1 TABLET BY 1 TABLET BY TAKE 1 Hospita MOUTH TWICE MOUTH TWICE TABLET BY l A DAY A DAY MOUTH Clinic s DIRECTED DIRECTED TWICE A PRn PRn DAY DIRECTED PRn dicyclomine dicyclomine No dicyclomin [facility] 10 mg 10 mg e 10 mg [facility] capsule capsule capsule ty TAKE 1 TAKE 1 TAKE 1 [facility]ospita CAPSULE BY CAPSULE BY CAPSULE BY l MOUTH THREE MOUTH THREE MOUTH Clinics TIMES A DAY TIMES A DAY THREE NEEDED NEEDED TIMES A DAY NEEDED doxycycline doxycycline No doxycyclin [facility] hyclate 100 hyclate 100 e hyclate Communi mg capsule mg capsule 100 mg t y TAKE 1 TAKE 1 capsule [facility]ospita CAPSULE BY CAPSULE BY TAKE 1 l MOUTH TWICE MOUTH TWICE CAPSULE BY Clinics A DAY A DAY MOUTH TWICE A DAY Eliquis 5 Eliquis 5 No Eliquis 5 [facility] mg tablet mg tablet mg tablet [facility] TAKE 1 TAKE 1 TAKE 1 ty TABLET BY TABLET BY TABLET BY Hospita MOUTH 2 MOUTH 2 MOUTH 2 l (TWO) TIMES (TWO) TIMES (TWO) Clinics DAILY. DAILY. TIMES INDICATIONS INDICATIONS DAILY. ATRIAL ATRIAL INDICATION FIBRILLATIO FIBRILLATIO S ATRIAL N N FIBRILLATI ON Humatrope 6 Humatrope 6 No Humatrope [facility] mg (18 mg (18 6 mg (18 Communi unit) unit) unit) ty injection injection injection [facility] cartridge cartridge cartridge l INJECT INJECT INJECT Clinics 0.3MG 0.3MG 0.3MG SUBCUTANEOU SUBCUTANEOU SUBCUTANEO SLY EVERY SLY EVERY USLY EVERY DAY DAY DAY hydrocortis hydrocortis No hydrocorti [facility] one 20 mg one 20 mg sone [...] HALF IN PM isosorbide isosorbide No isosorbide [facility] mononitrate mononitrate mononitrat [facility] ER 30 mg ER 30 mg e ER 30 mg t y tablet,exte tablet,exte tablet,ext Hospita nded nded ended l release 24 release 24 release 24 Clinics hr TAKE 1 hr TAKE 1 hr TAKE 1 TABLET BY TABLET BY TABLET BY MOUTH EVERY MOUTH EVERY MOUTH DAY DAY EVERY DAY Klor-Con 10 Klor-Con 10 No Klor-Con [facility] mEq mEq 10 mEq [facility] tablet,exte tablet,exte tablet,ext ty nded nded ended Hospita release release release l TAKE 1 TAKE 1 TAKE 1 Clinics TABLET BY TABLET BY TABLET BY MOUTH EVERY MOUTH EVERY MOUTH DAY WITH DAY WITH EVERY DAY FOOD FOOD WITH FOOD levothyroxi levothyroxi No levothyrox [facility] ne 112 mcg ne 112 mcg ine [...] Hospita l Clinics mirtazapine mirtazapine No mirtazapin [facility] 15 mg 15 mg e 15 mg [facility] tablet TAKE tablet TAKE tablet ty 1 TABLET BY 1 TABLET BY TAKE 1 Hospita MOUTH MOUTH TABLET BY l EVERYDAY AT EVERYDAY AT MOUTH Clinics BEDTIME BEDTIME EVERYDAY AT BEDTIME Myrbetriq Myrbetriq No 1 Q1D Myrbetriq [facility] 25 mg 25 mg 25 mg [facility] tablet,exte tablet,exte tablet,ext ty nded nded ended Hospita release release release l Take 1 Take 1 Take 1 Clinics tablet tablet tablet every day every day every day by oral by oral by oral route. route. route. nitroglycer nitroglycer No 1 nitroglyce [facility] in 0.4 mg in 0.4 mg rin [...] Santyl 250 Santyl 250 No Santyl 250 [facility] unit/gram unit/gram unit/gram [facility] topical topical topical ty ointment ointment ointment [facility] APPLY A APPLY A APPLY A l DIONY DIONY [facility] THICK THICK THICK AMOUNT TO AMOUNT TO AMOUNT TO WOUND 3 WOUND 3 WOUND 3 TIMES A TIMES A TIMES A WEEK WEEK WEEK simvastatin simvastatin No simvastati [facility] 40 mg 40 mg n 40 mg [facility] tablet TAKE tablet TAKE tablet ty 1 TABLET 1 TABLET TAKE 1 Hospi ta (40 MG) BY (40 MG) BY TABLET (40 l MOUTH DAILY MOUTH DAILY MG) BY Clinics IN THE IN THE MOUTH EVENING NOT EVENING NOT DAILY IN TAKING TAKING THE EVENING NOT TAKING sotalol 160 sotalol 160 No sotalol [facility] mg tablet mg tablet 160 mg Com raz TAKE 1 TAKE 1 tablet ty TABLET BY TABLET BY TAKE 1 [facility] MOUTH EVERY MOUTH EVERY TABLET BY l DAY DAY MOUTH Clinics EVERY DAY tramadol 50 tramadol 50 No tramadol [facility] mg tablet mg tablet 50 mg Comm uni TAKE 1 TAKE 1 tablet ty TABLET BY TABLET BY TAKE 1 [facility] MOUTH EVERY MOUTH EVERY TABLET BY l 6 HOURS 6 HOURS MOUTH Clinics EVERY 6 HOURS amlodipine amlodipine No amlodipine [facility] 5 mg tablet 5 mg tablet 5 mg C [facility] TAKE 1 TAKE 1 tablet ty TABLET BY TABLET BY TAKE 1 [facility] MOUTH EVERY MOUTH EVERY TABLET BY l DAY DAY MOUTH Clinics EVERY DAY atorvastati atorvastati No atorvastat [facility] n 40 mg n 40 mg in 40 mg Commu ni tablet TAKE tablet TAKE tablet ty 1 TABLET BY 1 TABLET BY TAKE 1 Hospita MOUTH EVERY MOUTH EVERY TABLET BY l DAY DAY MOUTH Clinics EVERY DAY BD Kalee 2nd BD Kalee 2nd No BD Kalee [facility] Gen Pen Gen Pen 2nd Gen Commun i Needle 32 Needle 32 Pen Needle ty gauge x gauge x 32 gauge x [facility] " 1 " 1 " 1 l TIME A DAY TIME A DAY TIME A DAY Clinics cholecalcif cholecalcif No cholecalci [facility] ghada ghada ferol Communi (vitamin (vitamin (vitamin ty D3) 1,250 D3) 1,250 D3) 1,250 [facility] mcg (50,000 mcg (50,000 mcg l unit) unit) (50,000 Clinics capsule capsule unit) TAKE 1 TAKE 1 capsule CAPSULE CAPSULE TAKE 1 EVERY 15 EVERY 15 CAPSULE DAYS DAYS EVERY 15 DAYS clonazepam clonazepam No clonazepam [facility] 0.5 mg 0.5 mg 0.5 mg [facility] tablet TAKE tablet TAKE tablet ty 1 TABLET BY 1 TABLET BY TAKE 1 Hospita MOUTH TWICE MOUTH TWICE TABLET BY l A DAY A DAY MOUTH Clinic s DIRECTED DIRECTED TWICE A PRn PRn DAY DIRECTED PRn dicyclomine dicyclomine No dicyclomin [facility] 10 mg 10 mg e 10 mg [...] DAY EVERY DAY doxycycline doxycycline No doxycyclin [facility] hyclate 100 hyclate 100 e hyclate Communi mg capsule mg capsule 100 mg t y TAKE 1 TAKE 1 capsule [facility]ospita CAPSULE BY CAPSULE BY TAKE 1 l MOUTH TWICE MOUTH TWICE CAPSULE BY Clinics A DAY A DAY MOUTH TWICE A DAY Eliquis 2.5 Eliquis 2.5 No Eliquis [facility] mg tablet mg tablet 2.5 mg Com raz TAKE 1 TAKE 1 tablet ty TABLET BY TABLET BY TAKE 1 [facility] MOUTH TWICE MOUTH TWICE TABLET BY l A DAY A DAY MOUTH Clinics TWICE A DAY Eliquis 5 Eliquis 5 No Eliquis 5 [facility] mg tablet mg tablet mg tablet [facility]i TAKE 1 TAKE 1 TAKE 1 ty TABLET BY TABLET BY TABLET BY Hospita MOUTH 2 MOUTH 2 MOUTH 2 l (TWO) TIMES (TWO) TIMES (TWO) Clinics DAILY. DAILY. TIMES INDICATIONS INDICATIONS DAILY. ATRIAL ATRIAL INDICATION FIBRILLATIO FIBRILLATIO S ATRIAL N N FIBRILLATI ON glipizide glipizide No glipizide [facility] ER 2.5 mg ER 2.5 mg ER 2.5 mg [facility] tablet, tablet, tablet, ty extended extended extended [facility] release 24 release 24 release 24 l hr hr hr Clinics Humatrope 6 Humatrope 6 No Humatrope [facility] mg (18 mg (18 6 mg (18 Communi unit) unit) unit) ty injection injection injection [facility] cartridge cartridge cartridge l INJECT INJECT INJECT [facility] 0.3MG 0.3MG 0.3MG SUBCUTANEOU SUBCUTANEOU SUBCUTANEO SLY EVERY SLY EVERY USLY EVERY DAY DAY DAY hydrocortis hydrocortis No hydrocorti [facility] one 20 mg one 20 mg sone 20 mg [facility] tablet TAKE tablet TAKE tablet ty 2 TABLETS 2 TABLETS TAKE 2 [facility] BY MOUTH BY MOUTH TABLETS BY l EVERY DAY EVERY DAY MOUTH Clin ics IN THE IN THE EVERY DAY MORNING MORNING IN THE MORNING isosorbide isosorbide No isosorbide [facility] mononitrate mononitrate mononitrat [facility] ER 30 mg ER 30 mg e ER 30 mg t y tablet,exte tablet,exte tablet,ext [facility]ospita nded nded ended l release 24 release 24 release 24 Clinics hr TAKE 1 hr TAKE 1 hr TAKE 1 TABLET BY TABLET BY TABLET BY MOUTH EVERY MOUTH EVERY MOUTH DAY DAY EVERY DAY Klor-Con 10 Klor-Con 10 No Klor-Con [facility] mEq mEq 10 mEq Commun[facility] tablet,exte tablet,exte tablet,ext ty nded nded ended Hospita release release release l TAKE 1 TAKE 1 TAKE 1 Clinics TABLET BY TABLET BY TABLET BY MOUTH EVERY MOUTH EVERY MOUTH DAY WITH DAY WITH EVERY DAY FOOD FOOD WITH FOOD levothyroxi levothyroxi No levothyrox [facility] ne 112 mcg ne 112 mcg ine 112 Communi tablet 1 tablet 1 mcg tablet t y TAB DAILY TAB DAILY 1 TAB Hosp meryl 1/2 HR. 1/2 HR. DAILY 1/2 l BEFORE BEFORE HR. BEFORE Clini cs BREAKFAST BREAKFAST BREAKFAST WITH WATER WITH WATER WITH WATER lidocaine 5 lidocaine 5 No lidocaine [facility] % topical % topical 5 % Commu ni patch patch topical ty patch [facility] liothyronin liothyronin No liothyroni [facility] e 5 mcg e 5 mcg ne 5 mcg Commu ni tablet tablet tablet ty [facility] losartan losartan No losartan Swe madeleine 100 mg 100 mg 100 mg Communi tablet 1 po tablet 1 po tablet 1 ty qd qd po qd [facility] mirtazapine mirtazapine No mirtazapin [facility] 15 mg 15 mg e 15 mg [facility]i tablet TAKE tablet TAKE tablet ty 1 TABLET BY 1 TABLET BY TAKE 1 Hospita MOUTH MOUTH TABLET BY l EVERYDAY AT EVERYDAY AT MOUTH Clinics BEDTIME BEDTIME EVERYDAY AT BEDTIME Myrbetriq Myrbetriq No 1 Q1D Myrbetriq [facility] 25 mg 25 mg 25 mg [facility] tablet,exte tablet,exte tablet,ext ty nded nded ended Hospita release release release l Take 1 Take 1 Take 1 Clinics tablet tablet tablet every day every day every day by oral by oral by oral route. route. route. nitroglycer nitroglycer No 1 nitroglyce [facility] in 0.4 mg in 0.4 mg rin 0.4 mg Communi sublingual sublingual sublingual ty tablet tablet tablet [facility] [address] 1 l tablet as tablet as tablet as Clinics needed by needed by needed by sublingual sublingual sublingual route. route. route. omeprazole omeprazole No omeprazole [facility] 20 mg 20 mg 20 mg Communi [...] DAY l Clinics pantoprazol pantoprazol No pantoprazo [facility] e 40 mg e 40 mg le 40 mg Commu ni tablet,indira tablet,indira tablet,del ty yed release yed release ayed H ospita release l Clinics potassium potassium No potassium [facility] chloride ER chloride ER chloride Communi 20 mEq 20 mEq ER 20 mEq ty tablet,exte tablet,exte tablet,ext Hospita nded nded ended l release(par release(par release(pa Clinics t/cryst) t/cryst) rt/cryst) TAKE 1 TAKE 1 TAKE 1 TABLET BY TABLET BY TABLET BY MOUTH EVERY MOUTH EVERY MOUTH DAY DAY EVERY DAY Santyl 250 Santyl 250 No Santyl 250 [facility] unit/gram unit/gram unit/gram [facility] topical topical topical ty ointment ointment ointment [facility] APPLY A APPLY A APPLY A l DIONY [facility] THICK THICK THICK AMOUNT TO AMOUNT TO AMOUNT TO WOUND 3 WOUND 3 WOUND 3 TIMES A TIMES A TIMES A WEEK WEEK WEEK simvastatin simvastatin No simvastati [facility] 40 mg 40 mg n 40 mg Communi tablet TAKE tablet TAKE tablet ty 1 TABLET 1 TABLET TAKE 1 Hospi ta (40 MG) BY (40 MG) BY TABLET (40 l MOUTH DAILY MOUTH DAILY MG) BY Clinics IN THE IN THE MOUTH EVENING NOT EVENING NOT DAILY IN TAKING TAKING THE EVENING NOT TAKING sotalol 160 sotalol 160 No sotalol [facility] mg tablet mg tablet 160 mg Com raz TAKE 1 TAKE 1 tablet ty TABLET BY TABLET BY TAKE 1 [facility] MOUTH EVERY MOUTH EVERY TABLET BY l DAY DAY MOUTH Clinics EVERY DAY tramadol 50 tramadol 50 No tramadol [facility] mg tablet mg tablet 50 mg Comm uni TAKE 1 TAKE 1 tablet ty TABLET BY TABLET BY TAKE 1 [facility] MOUTH AT MOUTH AT TABLET BY l BEDTIME AND BEDTIME AND MOUTH AT Clinics IN MORNING IN MORNING BEDTIME AND IN MORNING amlodipine amlodipine No amlodipine [facility] 5 mg tablet 5 mg tablet 5 mg C [facility] TAKE 1 TAKE 1 tablet ty TABLET BY TABLET BY TAKE 1 [facility] MOUTH EVERY MOUTH EVERY TABLET BY l DAY DAY MOUTH Clinics EVERY DAY BD Kalee 2nd BD K[facility] 2nd No BD Kalee [facility] Gen Pen Gen Pen 2nd Gen Commun i Needle 32 Needle 32 Pen Needle ty gauge x gauge x 32 gauge x [facility] " 1 " 1 " 1 l TIME A DAY TIME A DAY TIME A DAY Clinics cholecalcif cholecalcif No cholecalci [facility] ghada ghada ferol Communi (vitamin (vitamin (vitamin ty D3) 1,250 D3) 1,250 D3) 1,250 [facility]osp[facility] mcg (50,000 mcg (50,000 mcg l unit) unit) (50,000 Clinics capsule capsule unit) TAKE 1 TAKE 1 capsule CAPSULE CAPSULE TAKE 1 EVERY 15 EVERY 15 CAPSULE DAYS DAYS EVERY 15 DAYS clonazepam clonazepam No clonazepam [facility] 0.5 mg 0.5 mg 0.5 mg Communi [...] DAY EVERY DAY famotidine famotidine No famotidine [facility] 20 mg 20 mg 20 mg [facility] tablet Take tablet Take tablet ty 1 tablet 1 tablet Take 1 Hospi ta daily by daily by tablet l mouth mouth daily by Clinics mouth ferrous ferrous No ferrous [facility] sulfate 220 sulfate 220 sulfate Communi mg (44 mg mg (44 mg 220 mg (44 ty iron)/5 mL iron)/5 mL mg iron)/5 Hospita oral elixir oral elixir mL oral l Take 5 ML Take 5 ML elixir Cli nics BID by BID by Take 5 ML mouth mouth BID by mouth glipizide glipizide No glipizide [facility] ER 2.5 mg ER 2.5 mg ER 2.5 mg Communi tablet, tablet, tablet, ty extended extended extended [facility] release 24 release 24 release 24 l hr hr hr Clinics Humatrope 6 Humatrope 6 No Humatrope [facility] mg (18 mg (18 6 mg (18 Communi unit) unit) unit) ty injection injection injection [facility] cartridge cartridge cartridge l INJECT INJECT INJECT Clinics 0.3MG 0.3MG 0.3MG SUBCUTANEOU SUBCUTANEOU SUBCUTANEO SLY EVERY SLY EVERY USLY EVERY DAY DAY DAY hydrocortis hydrocortis No hydrocorti [facility] one 20 mg one 20 mg sone 20 mg [facility] tablet TAKE tablet TAKE tablet ty 2 TABLETS 2 TABLETS TAKE 2 [facility] BY MOUTH BY MOUTH TABLETS BY l EVERY DAY EVERY DAY MOUTH Clin ics IN THE IN THE EVERY DAY MORNING MORNING IN THE MORNING isosorbide isosorbide No isosorbide [facility] mononitrate mononitrate mononitrat Commun[facility] ER 30 mg ER 30 mg e ER 30 mg t y tablet,exte tablet,exte tablet,ext [facility]ospita nded nded ended l release 24 release 24 release 24 Clinics hr TAKE 1 hr TAKE 1 hr TAKE 1 TABLET BY TABLET BY TABLET BY MOUTH EVERY MOUTH EVERY MOUTH DAY DAY EVERY DAY Klor-Con 10 Klor-Con 10 No Klor-Con [facility] mEq mEq 10 mEq Communi tablet,exte tablet,exte tablet,ext ty nded nded ended Hospita release release release l TAKE 1 TAKE 1 TAKE 1 Clinics TABLET BY TABLET BY TABLET BY MOUTH EVERY MOUTH EVERY MOUTH DAY WITH DAY WITH EVERY DAY FOOD FOOD WITH FOOD levothyroxi levothyroxi No levothyrox [facility] ne 112 mcg ne 112 mcg ine 112 Communi tablet 1 tablet 1 mcg tablet t y TAB DAILY TAB DAILY 1 TAB [facility]osp [facility]yl 1/2 HR. 1/2 HR. DAILY 1/2 l BEFORE BEFORE HR. BEFORE Clini cs BREAKFAST BREAKFAST BREAKFAST WITH WATER WITH WATER WITH WATER lidocaine 5 lidocaine 5 No lidocaine [facility] % topical % topical 5 % Commu ni patch patch topical ty patch [facility] liothyronin liothyronin No liothyroni [facility] e 5 mcg e 5 mcg ne 5 mcg Commu ni tablet tablet tablet ty [facility] mirtazapine mirtazapine No mirtazapin [facility] 15 mg 15 mg e 15 mg Communi tablet TAKE tablet TAKE tablet ty 1 TABLET BY 1 TABLET BY TAKE 1 Hospita MOUTH MOUTH TABLET BY l EVERYDAY AT EVERYDAY AT MOUTH Clinics BEDTIME BEDTIME EVERYDAY AT BEDTIME nitroglycer nitroglycer No 1 nitroglyce [facility] in 0.4 mg in 0.4 mg rin 0.4 mg Communi sublingual sublingual sublingual ty tablet tablet tablet Hospita Place [address] 1 l tablet as tablet as tablet as Clinics needed by needed by needed by sublingual sublingual sublingual route. route. route. omeprazole omeprazole No omeprazole [facility] 20 mg 20 mg 20 mg Communi [...] DAY l Clinics pantoprazol pantoprazol No pantoprazo [facility] e 40 mg e 40 mg le 40 mg Commu ni tablet,indira tablet,indira tablet,del ty yed release yed release ayed H ospita Take 1 Take 1 release l tablet BID tablet BID Take 1 C linics by mouth by mouth tablet BID by mouth potassium potassium No potassium [facility] chloride ER chloride ER chloride Communi 20 mEq 20 mEq ER 20 mEq ty tablet,exte tablet,exte tablet,ext Hospita nded nded ended l release(par release(par release(dc Clinics t/cryst) t/cryst) rt/cryst) TAKE 1 TAKE 1 TAKE 1 TABLET BY TABLET BY TABLET BY MOUTH EVERY MOUTH EVERY MOUTH DAY DAY EVERY DAY Santyl 250 Santyl 250 No Santyl 250 [facility] unit/gram unit/gram unit/gram [facility] topical topical topical ty ointment ointment ointment [facility] APPLY A APPLY A APPLY A l DIONY [facility] THICK THICK THICK AMOUNT TO AMOUNT TO AMOUNT TO WOUND 3 WOUND 3 WOUND 3 TIMES A TIMES A TIMES A WEEK WEEK WEEK sotalol 160 sotalol 160 No sotalol [facility] mg tablet mg tablet 160 mg Com raz TAKE 1 TAKE 1 tablet ty TABLET BY TABLET BY TAKE 1 [facility] MOUTH EVERY MOUTH EVERY TABLET BY l DAY DAY MOUTH Clinics EVERY DAY tramadol 50 tramadol 50 No tramadol [facility] mg tablet mg tablet 50 mg Comm uni TAKE 1 TAKE 1 tablet ty TABLET BY TABLET BY TAKE 1 [facility] MOUTH AT MOUTH AT TABLET BY l BEDTIME AND BEDTIME AND MOUTH AT Clinics IN MORNING IN MORNING BEDTIME AND IN MORNING amlodipine amlodipine No amlodipine [facility] 5 mg tablet 5 mg tablet 5 mg C [facility] TAKE 1 TAKE 1 tablet ty TABLET BY TABLET BY TAKE 1 [facility] MOUTH EVERY MOUTH EVERY TABLET BY l DAY DAY MOUTH Clinics EVERY DAY Bactrim DS Bactrim DS No 1 Q12H Bactrim DS [facility] 800 mg-160 800 mg-160 800 mg-160 Communi mg tablet mg tablet mg tablet ty Take 1 Take 1 Take 1 Hospita tablet tablet tablet l every 12 every 12 every 12 Cli nics hours by hours by hours by oral route oral route oral route for 7 days. for 7 days. for 7 days. BD Kalee 2nd BD K[facility] 2nd No BD Kalee [facility] Gen Pen Gen Pen 2nd Gen Commun i Needle 32 Needle 32 Pen Needle ty gauge x gauge x 32 gauge x [facility] " 1 " 1 " 1 l TIME A DAY TIME A DAY TIME A DAY Clinics cholecalcif cholecalcif No cholecalci [facility] ghada ghada ferol Communi (vitamin (vitamin (vitamin ty D3) 1,250 D3) 1,250 D3) 1,250 [facility]osp[facility] mcg (50,000 mcg (50,000 mcg l unit) unit) (50,000 Clinics capsule capsule unit) TAKE 1 TAKE 1 capsule CAPSULE CAPSULE TAKE 1 EVERY 15 EVERY 15 CAPSULE DAYS DAYS EVERY 15 DAYS clonazepam clonazepam No clonazepam [facility] 0.5 mg 0.5 mg 0.5 mg [facility] tablet TAKE tablet TAKE tablet ty 1 TABLET BY 1 TABLET BY TAKE 1 Hospita MOUTH ONCE MOUTH ONCE TABLET BY l A DAY A DAY MOUTH ONCE C linics NEEDED NEEDED A DAY NEEDED cyclobenzap cyclobenzap No cyclobenza [facility] rine 10 mg rine 10 mg rita 10 Communi tablet tablet mg tablet ty Hospita l Clinics diclofenac diclofenac No diclofenac [facility] sodium 75 sodium 75 sodium 75 Communi [...] DAY EVERY DAY famotidine famotidine No famotidine [facility] 20 mg 20 mg 20 mg Communi tablet Take tablet Take tablet ty 1 tablet 1 tablet Take 1 Hospi ta daily by daily by tablet l mouth mouth daily by Clinics mouth ferrous ferrous No ferrous [facility] sulfate 220 sulfate 220 sulfate [facility]i mg (44 mg mg (44 mg 220 mg (44 ty iron)/5 mL iron)/5 mL mg iron)/5 Hospita oral elixir oral elixir mL oral l Take 5 ML Take 5 ML elixir Cli nics BID by BID by Take 5 ML mouth mouth BID by mouth glipizide glipizide No glipizide [facility] ER 2.5 mg ER 2.5 mg ER 2.5 mg Communi tablet, tablet, tablet, ty extended extended extended [facility] release 24 release 24 release 24 l hr hr hr Clinics Humatrope 6 Humatrope 6 No Humatrope [facility] mg (18 mg (18 6 mg (18 Communi unit) unit) unit) ty injection injection injection [facility] cartridge cartridge cartridge l INJECT INJECT INJECT [facility] 0.3MG 0.3MG 0.3MG SUBCUTANEOU SUBCUTANEOU SUBCUTANEO SLY EVERY SLY EVERY USLY EVERY DAY DAY DAY hydrocortis hydrocortis No hydrocorti [facility] one 20 mg one 20 mg sone 20 mg [facility] tablet TAKE tablet TAKE tablet ty 2 TABLETS 2 TABLETS TAKE 2 [facility] BY MOUTH BY MOUTH TABLETS BY l EVERY DAY EVERY DAY MOUTH Clin ics IN THE IN THE EVERY DAY MORNING MORNING IN THE MORNING isosorbide isosorbide No isosorbide [facility] mononitrate mononitrate mononitrat Communi ER 30 mg ER 30 mg e ER 30 mg t y tablet,exte tablet,exte tablet,ext Hospita nded nded ended l release 24 release 24 release 24 Clinics hr TAKE 1 hr TAKE 1 hr TAKE 1 TABLET BY TABLET BY TABLET BY MOUTH EVERY MOUTH EVERY MOUTH DAY DAY EVERY DAY Klor-Con 10 Klor-Con 10 No Klor-Con [facility] mEq mEq 10 mEq Communi tablet,exte tablet,exte tablet,ext ty nded nded ended Hospita release release release l TAKE 1 TAKE 1 TAKE 1 Clinics TABLET BY TABLET BY TABLET BY MOUTH EVERY MOUTH EVERY MOUTH DAY WITH DAY WITH EVERY DAY FOOD FOOD WITH FOOD levothyroxi levothyroxi No levothyrox [facility] ne 112 mcg ne 112 mcg ine 112 Communi tablet 1 tablet 1 mcg tablet t y TAB DAILY TAB DAILY 1 TAB [facility] 1/2 HR. 1/2 HR. DAILY 1/2 l BEFORE BEFORE HR. BEFORE Clini cs BREAKFAST BREAKFAST BREAKFAST WITH WATER WITH WATER WITH WATER lidocaine 5 lidocaine 5 No lidocaine [facility] % topical % topical 5 % Commu ni patch patch topical ty patch [facility] liothyronin liothyronin No liothyroni [facility] e 5 mcg e 5 mcg ne 5 mcg Commu ni tablet tablet tablet ty [facility] mirtazapine mirtazapine No mirtazapin [facility] 15 mg 15 mg e 15 mg Communi tablet TAKE tablet TAKE tablet ty 1 TABLET BY 1 TABLET BY TAKE 1 Hospita MOUTH MOUTH TABLET BY l EVERYDAY AT EVERYDAY AT MOUTH Clinics BEDTIME BEDTIME EVERYDAY AT BEDTIME nitroglycer nitroglycer No 1 nitroglyce [facility] in 0.4 mg in 0.4 mg rin 0.4 mg Communi sublingual sublingual sublingual ty tablet tablet [facility] [address] 1 l tablet as tablet as tablet as Clinics needed by needed by needed by sublingual sublingual sublingual route. route. route. omeprazole omeprazole No omeprazole [facility] 20 mg 20 mg 20 mg Communi [...] DAY l Clinics pantoprazol pantoprazol No pantoprazo [facility] e 40 mg e 40 mg le 40 mg Commu ni tablet,indira tablet,indira tablet,del ty yed release yed release ayed H [facility]spita Take 1 Take 1 release l tablet BID tablet BID Take 1 C linics by mouth by mouth tablet BID by mouth potassium potassium No potassium [facility] chloride ER chloride ER chloride Communi 20 mEq 20 mEq ER 20 mEq ty tablet,exte tablet,exte tablet,ext Hospita nded nded ended l release(par release(par release(dc Clinics t/cryst) t/cryst) rt/cryst) TAKE 1 TAKE [...] Santyl 250 Santyl 250 No Santyl 250 [facility] unit/gram unit/gram unit/gram [facility]i topical topical topical ty ointment ointment ointment [facility] APPLY A APPLY A APPLY A l DIONY [facility] THICK THICK THICK AMOUNT TO AMOUNT TO AMOUNT TO WOUND 3 WOUND 3 WOUND 3 TIMES A TIMES A TIMES A WEEK WEEK WEEK sotalol 160 sotalol 160 No sotalol [facility] mg tablet mg tablet 160 mg Com raz TAKE 1 TAKE 1 tablet ty TABLET BY TABLET BY TAKE 1 [facility] MOUTH EVERY MOUTH EVERY TABLET BY l DAY DAY MOUTH Clinics EVERY DAY tramadol 50 tramadol 50 No tramadol [facility] mg tablet mg tablet 50 mg Comm uni TAKE 1 TAKE 1 tablet ty TABLET BY TABLET BY TAKE 1 [facility] MOUTH AT MOUTH AT TABLET BY l BEDTIME AND BEDTIME AND MOUTH AT Clinics IN MORNING IN MORNING BEDTIME AND IN MORNING amlodipine amlodipine No amlodipine [facility] 5 mg tablet 5 mg tablet 5 mg C [facility] TAKE 1 TAKE 1 tablet ty TABLET BY TABLET BY TAKE 1 [facility] MOUTH EVERY MOUTH EVERY TABLET BY l DAY DAY MOUTH Clinics EVERY DAY atorvastati atorvastati No atorvastat [facility] n 20 mg n 20 mg in 20 mg Commu ni tablet TAKE tablet TAKE tablet ty 1 TABLET BY 1 TABLET BY TAKE 1 Hospita MOUTH EVERY MOUTH EVERY TABLET BY l DAY FOR 90 DAY FOR 90 MOUTH Cl inics DAYS DAYS EVERY DAY FOR 90 DAYS BD Kalee 2nd BD Kalee 2nd No BD Kalee [facility] Gen Pen Gen Pen 2nd Gen Commun i Needle 32 Needle 32 Pen Needle ty gauge x gauge x 32 gauge x [facility] " 1 " 1 " 1 l TIME A DAY TIME A DAY TIME A DAY Clinics cholecalcif cholecalcif No cholecalci [facility] ghada ghada ferol Communi (vitamin (vitamin (vitamin ty D3) 1,250 D3) 1,250 D3) 1,250 [facility]ospita mcg (50,000 mcg (50,000 mcg l unit) unit) (50,000 Clinics capsule capsule unit) TAKE 1 TAKE 1 capsule CAPSULE CAPSULE TAKE 1 EVERY 15 EVERY 15 CAPSULE DAYS DAYS EVERY 15 DAYS clonazepam clonazepam No clonazepam [facility] 0.5 mg 0.5 mg 0.5 mg Communi tablet TAKE tablet TAKE tablet ty 1 TABLET BY 1 TABLET BY TAKE 1 Hospita MOUTH EVERY MOUTH EVERY TABLET BY l DAY DAY MOUTH Clinics NEEDED NEEDED EVERY DAY NEEDED cyclobenzap cyclobenzap No cyclobenza [facility] rine 10 mg rine 10 mg rita 10 Communi tablet tablet mg tablet ty Hospita l Clinics diclofenac diclofenac No diclofenac [facility] sodium 75 sodium 75 sodium 75 Communi [...] DAY EVERY DAY famotidine famotidine No famotidine [facility] 20 mg 20 mg 20 mg Communi tablet Take tablet Take tablet ty 1 tablet 1 tablet Take 1 Hospi ta daily by daily by tablet l mouth mouth daily by Clinics mouth ferrous ferrous No ferrous [facility] sulfate 220 sulfate 220 sulfate [facility] mg (44 mg mg (44 mg 220 mg (44 ty iron)/5 mL iron)/5 mL mg iron)/5 Hospita oral elixir oral elixir mL oral l Take 5 ML Take 5 ML elixir Cli nics BID by BID by Take 5 ML mouth mouth BID by mouth glipizide glipizide No glipizide [facility] ER 2.5 mg ER 2.5 mg ER 2.5 mg Communi tablet, tablet, tablet, ty extended extended extended [facility] release 24 release 24 release 24 l hr hr hr Clinics Humatrope 6 Humatrope 6 No Humatrope [facility] mg (18 mg (18 6 mg (18 Communi unit) unit) unit) ty injection injection injection [facility] cartridge cartridge cartridge l INJECT INJECT INJECT [facility] 0.3MG 0.3MG 0.3MG SUBCUTANEOU SUBCUTANEOU SUBCUTANEO SLY EVERY SLY EVERY USLY EVERY DAY DAY DAY hydrocortis hydrocortis No hydrocorti [facility] one 20 mg one 20 mg sone 20 mg [facility]i tablet TAKE tablet TAKE tablet ty 2 TABLETS 2 TABLETS TAKE 2 [facility] BY MOUTH BY MOUTH TABLETS BY l EVERY DAY EVERY DAY MOUTH Clin ics IN THE IN THE EVERY DAY MORNING MORNING IN THE MORNING isosorbide isosorbide No isosorbide [facility] mononitrate mononitrate mononitrat Communi ER 30 mg ER 30 mg e ER 30 mg t y tablet,exte tablet,exte tablet,ext Hospita nded nded ended l release 24 release 24 release 24 Clinics hr TAKE 1 hr TAKE 1 hr TAKE 1 TABLET BY TABLET BY TABLET BY MOUTH EVERY MOUTH EVERY MOUTH DAY DAY EVERY DAY Klor-Con 10 Klor-Con 10 No Klor-Con [facility] mEq mEq 10 mEq Communi tablet,exte tablet,exte tablet,ext ty nded nded ended Hospita release release release l TAKE 1 TAKE 1 TAKE 1 Clinics TABLET BY TABLET BY TABLET BY MOUTH EVERY MOUTH EVERY MOUTH DAY WITH DAY WITH EVERY DAY FOOD FOOD WITH FOOD levothyroxi levothyroxi No levothyrox [facility] ne 112 mcg ne 112 mcg ine 112 Communi tablet 1 tablet 1 mcg tablet t y TAB DAILY TAB DAILY 1 TAB [facility] 1/2 HR. 1/2 HR. DAILY 1/2 l BEFORE BEFORE HR. BEFORE Clini cs BREAKFAST BREAKFAST BREAKFAST WITH WATER WITH WATER WITH WATER lidocaine 5 lidocaine 5 No lidocaine [facility] % topical % topical 5 % Commu ni patch patch topical ty patch [facility] liothyronin liothyronin No liothyroni [facility] e 5 mcg e 5 mcg ne 5 mcg Commu ni tablet tablet tablet ty [facility] mirtazapine mirtazapine No mirtazapin [facility] 15 mg 15 mg e 15 mg Communi tablet TAKE tablet TAKE tablet ty 1 TABLET BY 1 TABLET BY TAKE 1 Hospita MOUTH MOUTH TABLET BY l EVERYDAY AT EVERYDAY AT MOUTH Clinics BEDTIME BEDTIME EVERYDAY AT BEDTIME nitroglycer nitroglycer No 1 nitroglyce [facility] in 0.4 mg in 0.4 mg rin 0.4 mg Communi sublingual sublingual sublingual ty tablet tablet tablet Hospita Place [address] 1 l tablet as tablet as tablet as Clinics needed by needed by needed by sublingual sublingual sublingual route. route. route. omeprazole omeprazole No omeprazole [facility] 20 mg 20 mg 20 mg Communi [...] ty gauge TEST gauge TEST gauge TEST [facility] TWICE A DAY TWICE A DAY [...] DAY l Clinics pantoprazol pantoprazol No pantoprazo [facility] e 40 mg e 40 mg le 40 mg Commu ni tablet,indira tablet,indira tablet,del ty yed release yed release ayed H ospita Take 1 Take 1 release l tablet BID tablet BID Take 1 C linics by mouth by mouth tablet BID by mouth phenazopyri phenazopyri No phenazopyr [facility] dine 200 mg dine 200 mg idine 200 Communi tablet TAKE tablet TAKE mg tablet ty 1 TABLET BY 1 TABLET BY TAKE 1 Hospita MOUTH THREE MOUTH THREE TABLET BY l TIMES A DAY TIMES A DAY MOUTH Clinics FOR 3 DAYS FOR 3 DAYS THREE TIMES A DAY FOR 3 DAYS potassium potassium No potassium [facility] chloride ER chloride ER chloride Communi 20 mEq 20 mEq ER 20 mEq ty tablet,exte tablet,exte tablet,ext Hospita nded nded ended l release(par release(par release(pa Clinics t/cryst) t/cryst) rt/cryst) TAKE 1 TAKE 1 TAKE 1 TABLET BY TABLET BY TABLET BY MOUTH EVERY MOUTH EVERY MOUTH DAY DAY EVERY DAY Santyl 250 Santyl 250 No Santyl 250 [facility] unit/gram unit/gram unit/gram Communi topical topical topical ty ointment ointment ointment [facility] APPLY A APPLY A APPLY A l [facility] THICK THICK THICK AMOUNT TO AMOUNT TO AMOUNT TO WOUND 3 WOUND 3 WOUND 3 TIMES A TIMES A TIMES A WEEK WEEK WEEK sotalol 160 sotalol 160 No sotalol [facility] mg tablet mg tablet 160 mg Com raz TAKE 1 TAKE 1 tablet ty TABLET BY TABLET BY TAKE 1 [facility] MOUTH EVERY MOUTH EVERY TABLET BY l DAY DAY MOUTH Clinics EVERY DAY sulfamethox sulfamethox No sulfametho [facility] azole 800 azole 800 xazole 800 Communi [...] Suprax 200 No 5mL BID Suprax 200 [facility] mg/5 mL mg/5 mL mg/5 mL Commun i oral oral oral ty suspension suspension suspension Hospita Take 5 mL Take 5 mL Take 5 mL l twice a day twice a day twice a Clinics by oral by oral day by route for 7 route for 7 oral route days. days. for 7 days. tramadol 50 tramadol 50 No tramadol [facility] mg tablet mg tablet 50 mg Comm uni TAKE 1 TAKE 1 tablet ty TABLET BY TABLET BY TAKE 1 [facility] MOUTH AT MOUTH AT TABLET BY l BEDTIME AND BEDTIME AND MOUTH AT Clinics IN MORNING IN MORNING BEDTIME AND IN MORNING amlodipine amlodipine No amlodipine [facility] 5 mg tablet 5 mg tablet 5 mg C [facility] TAKE 1 TAKE 1 tablet ty TABLET BY TABLET BY TAKE 1 [facility] MOUTH EVERY MOUTH EVERY TABLET BY l DAY DAY MOUTH Clinics EVERY DAY atorvastati atorvastati No atorvastat [facility] n 20 mg n 20 mg in 20 mg Commu ni tablet TAKE tablet TAKE tablet ty 1 TABLET BY 1 TABLET BY TAKE 1 Hospita MOUTH EVERY MOUTH EVERY TABLET BY l DAY FOR 90 DAY FOR 90 MOUTH Cl inics DAYS DAYS EVERY DAY FOR 90 DAYS BD Kalee 2nd BD Kalee 2nd No BD Kalee [facility] Gen Pen Gen Pen 2nd Gen Commun i Needle 32 Needle 32 Pen Needle ty gauge x gauge x 32 gauge x [facility] /32" 1 32" 1 32" 1 l TIME A DAY TIME A DAY TIME A DAY Clinics ceftriaxone ceftriaxone No 500mg ceftriaxon [facility] 500 mg 500 mg e 500 mg Commun[facility] solution solution solution ty for for for Hospita injection injection injection l Take 500 mg Take 500 mg Take 500 Clinics by by mg by injection injection injection route. route. route. cholecalcif cholecalcif No cholecalci [facility] ghada ghada ferol Communi (vitamin (vitamin (vitamin ty D3) 1,250 D3) 1,250 D3) 1,250 Hospita mcg (50,000 mcg (50,000 mcg l unit) unit) (50,000 Clinics capsule capsule unit) TAKE 1 TAKE 1 capsule CAPSULE CAPSULE TAKE 1 EVERY 15 EVERY 15 CAPSULE DAYS DAYS EVERY 15 DAYS clonazepam clonazepam No clonazepam [facility] 0.5 mg 0.5 mg 0.5 mg [facility]i tablet TAKE tablet TAKE tablet ty 1 TABLET BY 1 TABLET BY TAKE 1 Hospita MOUTH EVERY MOUTH EVERY TABLET BY l DAY DAY MOUTH Clinics NEEDED NEEDED EVERY DAY NEEDED cyclobenzap cyclobenzap No cyclobenza [facility] rine 10 mg rine 10 mg rita 10 Communi tablet tablet mg tablet ty Hospita l Clinics diclofenac diclofenac No diclofenac [facility] sodium 75 sodium 75 sodium 75 Communi [...] DAY EVERY DAY famotidine famotidine No famotidine [facility] 20 mg 20 mg 20 mg Communi tablet Take tablet Take tablet ty 1 tablet 1 tablet Take 1 Hospi ta daily by daily by tablet l mouth mouth daily by Clinics mouth ferrous ferrous No ferrous [facility] sulfate 220 sulfate 220 sulfate [facility] mg (44 mg mg (44 mg 220 mg (44 ty iron)/5 mL iron)/5 mL mg iron)/5 Hospita oral elixir oral elixir mL oral l Take 5 ML Take 5 ML elixir Cli nics BID by BID by Take 5 ML mouth mouth BID by mouth glipizide glipizide No glipizide [facility] ER 2.5 mg ER 2.5 mg ER 2.5 mg [facility] tablet, tablet, tablet, ty extended extended extended [facility] release 24 release 24 release 24 l hr hr hr Clinics Humatrope 6 Humatrope 6 No Humatrope [facility] mg (18 mg (18 6 mg (18 Communi unit) unit) unit) ty injection injection injection [facility] cartridge cartridge cartridge l INJECT INJECT INJECT Clinics 0.3MG 0.3MG 0.3MG SUBCUTANEOU SUBCUTANEOU SUBCUTANEO SLY EVERY SLY EVERY USLY EVERY DAY DAY DAY hydrocortis hydrocortis No hydrocorti [facility] one 20 mg one 20 mg sone 20 mg [facility] tablet TAKE tablet TAKE tablet ty 2 TABLETS 2 TABLETS TAKE 2 [facility] BY MOUTH BY MOUTH TABLETS BY l EVERY DAY EVERY DAY MOUTH Clin ics IN THE IN THE EVERY DAY MORNING MORNING IN THE MORNING isosorbide isosorbide No isosorbide [facility] mononitrate mononitrate mononitrat [facility] ER 30 mg ER 30 mg e ER 30 mg t y tablet,exte tablet,exte tablet,ext Hospita nded nded ended l release 24 release 24 release 24 Clinics hr TAKE 1 hr TAKE 1 hr TAKE 1 TABLET BY TABLET BY TABLET BY MOUTH EVERY MOUTH EVERY MOUTH DAY DAY EVERY DAY Klor-Con 10 Klor-Con 10 No Klor-Con [facility] mEq mEq 10 mEq Commun[facility] tablet,exte tablet,exte tablet,ext ty nded nded ended Hospita release release release l TAKE 1 TAKE 1 TAKE 1 Clinics TABLET BY TABLET BY TABLET BY MOUTH EVERY MOUTH EVERY MOUTH DAY WITH DAY WITH EVERY DAY FOOD FOOD WITH FOOD levothyroxi levothyroxi No levothyrox [facility] ne 112 mcg ne 112 mcg ine 112 Communi tablet 1 tablet 1 mcg tablet t y TAB DAILY TAB DAILY 1 TAB [facility] 1/2 HR. 1/2 HR. DAILY 1/2 l BEFORE BEFORE HR. BEFORE Clini cs BREAKFAST BREAKFAST BREAKFAST WITH WATER WITH WATER WITH WATER lidocaine lidocaine No 2.1mL lidocaine [facility] (PF) 10 (PF) 10 (PF) 10 Commun i mg/mL (1 %) mg/mL (1 %) mg/mL (1 ty injection injection %) [facility] ta solution solution injection l Take 2.1 mL Take 2.1 mL solution Clinics by by Take 2.1 injection injection mL by route. route. injection route. lidocaine lidocaine No 2.1mL Q1D lidocaine [facility] (PF) 50 (PF) 50 (PF) 50 Commun [...] ML lidocaine 5 lidocaine 5 No lidocaine [facility] % topical % topical 5 % Commu ni patch patch topical ty patch [facility] liothyronin liothyronin No liothyroni [facility] e 5 mcg e 5 mcg ne 5 mcg Commu ni tablet tablet tablet ty [facility] mirtazapine mirtazapine No mirtazapin [facility] 15 mg 15 mg e 15 mg Communi tablet TAKE tablet TAKE tablet ty 1 TABLET BY 1 TABLET BY TAKE 1 Hospita MOUTH MOUTH TABLET BY l EVERYDAY AT EVERYDAY AT MOUTH Clinics BEDTIME BEDTIME EVERYDAY AT BEDTIME nitroglycer nitroglycer No 1 nitroglyce [facility] in 0.4 mg in 0.4 mg rin 0.4 mg Communi sublingual sublingual sublingual ty tablet tablet tablet Hospita Place [address] 1 l tablet as tablet as tablet as Clinics needed by needed by needed by sublingual sublingual sublingual route. route. route. omeprazole omeprazole No omeprazole [facility] 20 mg 20 mg 20 mg Communi [...] DAY l Clinics pantoprazol pantoprazol No pantoprazo [facility] e 40 mg e 40 mg le 40 mg Commu ni tablet,indira tablet,indira tablet,del ty yed release yed release ayed H ospita Take 1 Take 1 release l tablet BID tablet BID Take 1 C linics by mouth by mouth tablet BID by mouth phenazopyri phenazopyri No phenazopyr [facility] dine 200 mg dine 200 mg idine 200 Communi tablet TAKE tablet TAKE mg tablet ty 1 TABLET BY 1 TABLET BY TAKE 1 Hospita MOUTH THREE MOUTH THREE TABLET BY l TIMES A DAY TIMES A DAY MOUTH Clinics FOR 3 DAYS FOR 3 DAYS THREE TIMES A DAY FOR 3 DAYS potassium potassium No potassium [facility] chloride ER chloride ER chloride Communi 20 mEq 20 mEq ER 20 mEq ty tablet,exte tablet,exte tablet,ext Hospita nded nded ended l release(par release(par release(pa Clinics t/cryst) t/cryst) rt/cryst) TAKE 1 TAKE 1 TAKE 1 TABLET BY TABLET BY TABLET BY MOUTH EVERY MOUTH EVERY MOUTH DAY DAY EVERY DAY Santyl 250 Santyl 250 No Santyl 250 [facility] unit/gram unit/gram unit/gram [facility] topical topical topical ty ointment ointment ointment [facility] APPLY A APPLY A APPLY A l [facility] THICK THICK THICK AMOUNT TO AMOUNT TO AMOUNT TO WOUND 3 WOUND 3 WOUND 3 TIMES A TIMES A TIMES A WEEK WEEK WEEK sotalol 160 sotalol 160 No sotalol [facility] mg tablet mg tablet 160 mg Com raz TAKE 1 TAKE 1 tablet ty TABLET BY TABLET BY TAKE 1 [facility] MOUTH EVERY MOUTH EVERY TABLET BY l DAY DAY MOUTH Clinics EVERY DAY sulfamethox sulfamethox No sulfametho [facility] azole 800 azole 800 xazole 800 Communi [...] Suprax 200 No 5mL BID Suprax 200 [facility] mg/5 mL mg/5 mL mg/5 mL Commun i oral oral oral ty suspension suspension suspension Hospita Take 5 mL Take 5 mL Take 5 mL l twice a day twice a day twice a Clinics by oral by oral day by route for 7 route for 7 oral route days. days. for 7 days. tramadol 50 tramadol 50 No tramadol [facility] mg tablet mg tablet 50 mg Comm uni TAKE 1 TAKE 1 tablet ty TABLET BY TABLET BY TAKE 1 [facility] MOUTH AT MOUTH AT TABLET BY l BEDTIME AND BEDTIME AND MOUTH AT Clinics IN MORNING IN MORNING BEDTIME AND IN MORNING amlodipine amlodipine No amlodipine [facility] 5 mg tablet 5 mg tablet 5 mg C [facility] TAKE 1 TAKE 1 tablet ty TABLET BY TABLET BY TAKE 1 [facility] MOUTH EVERY MOUTH EVERY TABLET BY l DAY DAY MOUTH Clinics EVERY DAY atorvastati atorvastati No atorvastat [facility] n 20 mg n 20 mg in 20 mg Commu ni tablet TAKE tablet TAKE tablet ty 1 TABLET BY 1 TABLET BY TAKE 1 Hospita MOUTH EVERY MOUTH EVERY TABLET BY l DAY FOR 90 DAY FOR 90 MOUTH Cl inics DAYS DAYS EVERY DAY FOR 90 DAYS BD Kalee 2nd BD Kalee 2nd No BD Kalee [facility] Gen Pen Gen Pen 2nd Gen Commun i Needle 32 Needle 32 Pen Needle ty gauge x gauge x 32 gauge x [facility] " 1 " 1 " 1 l TIME A DAY TIME A DAY TIME A DAY Clinics ceftriaxone ceftriaxone No 500mg ceftriaxon [facility] 500 mg 500 mg e 500 mg Commun[facility] solution solution solution ty for for for Hospita injection injection injection l Take 500 mg Take 500 mg Take 500 Clinics by by mg by injection injection injection route. route. route. cholecalcif cholecalcif No cholecalci [facility] ghada ghada ferol Communi (vitamin (vitamin (vitamin ty D3) 1,250 D3) 1,250 D3) 1,250 Hospita mcg (50,000 mcg (50,000 mcg l unit) unit) (50,000 Clinics capsule capsule unit) TAKE 1 TAKE 1 capsule CAPSULE CAPSULE TAKE 1 EVERY 15 EVERY 15 CAPSULE DAYS DAYS EVERY 15 DAYS clonazepam clonazepam No clonazepam [facility] 0.5 mg 0.5 mg 0.5 mg [facility] tablet TAKE tablet TAKE tablet ty 1 TABLET BY 1 TABLET BY TAKE 1 Hospita MOUTH EVERY MOUTH EVERY TABLET BY l DAY DAY MOUTH Clinics NEEDED NEEDED EVERY DAY NEEDED cyclobenzap cyclobenzap No cyclobenza [facility] rine 10 mg rine 10 mg rita 10 Communi tablet tablet mg tablet ty Hospita l Clinics diclofenac diclofenac No diclofenac [facility] sodium 75 sodium 75 sodium 75 Communi [...] DAY EVERY DAY famotidine famotidine No famotidine [facility] 20 mg 20 mg 20 mg Communi tablet Take tablet Take tablet ty 1 tablet 1 tablet Take 1 Hospi ta daily by daily by tablet l mouth mouth daily by Clinics mouth ferrous ferrous No ferrous [facility] sulfate 220 sulfate 220 sulfate [facility] mg (44 mg mg (44 mg 220 mg (44 ty iron)/5 mL iron)/5 mL mg iron)/5 Hospita oral elixir oral elixir mL oral l Take 5 ML Take 5 ML elixir Cli nics BID by BID by Take 5 ML mouth mouth BID by mouth glipizide glipizide No glipizide [facility] ER 2.5 mg ER 2.5 mg ER 2.5 mg Communi tablet, tablet, tablet, ty extended extended extended [facility] release 24 release 24 release 24 l hr hr hr Clinics Humatrope 6 Humatrope 6 No Humatrope [facility] mg (18 mg (18 6 mg (18 Communi unit) unit) unit) ty injection injection injection [facility] cartridge cartridge cartridge l INJECT INJECT INJECT Clinics 0.3MG 0.3MG 0.3MG SUBCUTANEOU SUBCUTANEOU SUBCUTANEO SLY EVERY SLY EVERY USLY EVERY DAY DAY DAY hydrocortis hydrocortis No hydrocorti [facility] one 20 mg one 20 mg sone 20 mg [facility] tablet TAKE tablet TAKE tablet ty 2 TABLETS 2 TABLETS TAKE 2 [facility] BY MOUTH BY MOUTH TABLETS BY l EVERY DAY EVERY DAY MOUTH Clin ics IN THE IN THE EVERY DAY MORNING MORNING IN THE MORNING isosorbide isosorbide No isosorbide [facility] mononitrate mononitrate mononitrat Communi ER 30 mg ER 30 mg e ER 30 mg t y tablet,exte tablet,exte tablet,ext Hospita nded nded ended l release 24 release 24 release 24 Clinics hr TAKE 1 hr TAKE 1 hr TAKE 1 TABLET BY TABLET BY TABLET BY MOUTH EVERY MOUTH EVERY MOUTH DAY DAY EVERY DAY Klor-Con 10 Klor-Con 10 No Klor-Con [facility] mEq mEq 10 mEq Commun[facility] tablet,exte tablet,exte tablet,ext ty nded nded ended Hospita release release release l TAKE 1 TAKE 1 TAKE 1 Clinics TABLET BY TABLET BY TABLET BY MOUTH EVERY MOUTH EVERY MOUTH DAY WITH DAY WITH EVERY DAY FOOD FOOD WITH FOOD levothyroxi levothyroxi No levothyrox [facility] ne 112 mcg ne 112 mcg ine 112 Communi tablet 1 tablet 1 mcg tablet t y TAB DAILY TAB DAILY 1 TAB [facility] 1/2 HR. 1/2 HR. DAILY 1/2 l BEFORE BEFORE HR. BEFORE Clini cs BREAKFAST BREAKFAST BREAKFAST WITH WATER WITH WATER WITH WATER lidocaine lidocaine No 2.1mL lidocaine [facility] (PF) 10 (PF) 10 (PF) 10 Commun i mg/mL (1 %) mg/mL (1 %) mg/mL (1 ty injection injection %) [facility] ta solution solution injection l Take 2.1 mL Take 2.1 mL solution Clinics by by Take 2.1 injection injection mL by route. route. injection route. lidocaine lidocaine No 2.1mL Q1D lidocaine [facility] (PF) 50 (PF) 50 (PF) 50 Commun [...] ML lidocaine 5 lidocaine 5 No lidocaine [facility] % topical % topical 5 % [facility]othy[facility]in No liothyroni [facility] e 5 mcg e 5 mcg ne 5 mcg [facility] ni tablet tablet [facility] mirtazapine mirtazapine No mirtazapin [facility] 15 mg 15 mg e 15 mg Communi tablet TAKE tablet TAKE tablet ty 1 TABLET BY 1 [facility] TABLET BY l EVERYDAY AT EVERYDAY AT MOUTH Clinics BEDTIME BEDTIME EVERYDAY AT BEDTIME nitroglycer nitroglycer No 1 nitroglyce [facility] in 0.4 mg in 0.4 mg rin 0.4 mg Communi sublingual sublingual sublingual ty tablet [facility] [address] 1 l tablet as tablet as tablet as Clinics needed by needed by needed by sublingual sublingual sublingual route. route. route. omeprazole omeprazole No omeprazole [facility] 20 mg 20 mg 20 mg [facility] capsule,del capsule,del capsule,de ty ayed ayed layed [facility] release release release l TAKE 1 [...] DAY l Clinics pantoprazol pantoprazol No pantoprazo [facility] e 40 mg e 40 mg le 40 mg Commu ni tablet,indira tablet,indira tablet,del ty yed release yed release ayed H ospita Take 1 Take 1 release l tablet BID tablet BID Take 1 C linics by mouth by mouth tablet BID by mouth phenazopyri phenazopyri No phenazopyr [facility] dine 200 mg dine 200 mg idine 200 Communi tablet TAKE tablet TAKE mg tablet ty 1 TABLET BY 1 TABLET BY TAKE 1 Hospita MOUTH THREE MOUTH THREE TABLET BY l TIMES A DAY TIMES A DAY MOUTH Clinics FOR 3 DAYS FOR 3 DAYS THREE TIMES A DAY FOR 3 DAYS potassium potassium No potassium [facility] chloride ER chloride ER chloride Communi 20 mEq 20 mEq ER 20 mEq ty tablet,exte tablet,exte tablet,ext Hospita nded nded ended l release(par release(par release(dc Clinics t/cryst) t/cryst) rt/cryst) TAKE 1 TAKE 1 TAKE 1 TABLET BY TABLET BY TABLET BY MOUTH EVERY MOUTH EVERY MOUTH DAY DAY EVERY DAY Santyl 250 Santyl 250 No Santyl 250 [facility] unit/gram unit/gram unit/gram Communi topical topical topical ty ointment ointment ointment [facility] APPLY A APPLY A APPLY A l [facility] THICK THICK THICK AMOUNT TO AMOUNT TO AMOUNT TO WOUND 3 WOUND 3 WOUND 3 TIMES A TIMES A TIMES A WEEK WEEK WEEK sotalol 160 sotalol 160 No sotalol [facility] mg tablet mg tablet 160 mg Com raz TAKE 1 TAKE 1 tablet ty TABLET BY TABLET BY TAKE 1 [facility] MOUTH EVERY MOUTH EVERY TABLET BY l DAY DAY MOUTH Clinics EVERY DAY sulfamethox sulfamethox No sulfametho [facility] azole 800 azole 800 xazole 800 Communi [...] Suprax 200 No 5mL BID Suprax 200 [facility] mg/5 mL mg/5 mL mg/5 mL Commun i oral oral oral ty suspension suspension suspension Hospita Take 5 mL Take 5 mL Take 5 mL l twice a day twice a day twice a Clinics by oral by oral day by route for 7 route for 7 oral route days. days. for 7 days. tramadol 50 tramadol 50 No tramadol [facility] mg tablet mg tablet 50 mg Comm uni TAKE 1 TAKE 1 tablet ty TABLET BY TABLET BY TAKE 1 [facility] MOUTH AT MOUTH AT TABLET BY l BEDTIME AND BEDTIME AND MOUTH AT Clinics IN MORNING IN MORNING BEDTIME AND IN MORNING amlodipine amlodipine No amlodipine [facility] 5 mg tablet 5 mg tablet 5 mg [facility] TAKE 1 TAKE 1 tablet ty TABLET BY TABLET BY TAKE 1 [facility] MOUTH EVERY MOUTH EVERY TABLET BY l DAY DAY MOUTH Clinics EVERY DAY atorvastati atorvastati No atorvastat [facility] n 20 mg n 20 mg in 20 mg Commu ni tablet TAKE tablet TAKE tablet ty 1 TABLET BY 1 TABLET BY TAKE 1 Hospita MOUTH EVERY MOUTH EVERY TABLET BY l DAY FOR 90 DAY FOR 90 MOUTH Cl inics DAYS DAYS EVERY DAY FOR 90 DAYS BD Kalee 2nd BD Kalee 2nd No BD Kalee [facility] Gen Pen Gen Pen 2nd Gen Commun i Needle 32 Needle 32 Pen Needle ty gauge x gauge x 32 gauge x [facility] " 1 " 1 " 1 l TIME A DAY TIME A DAY TIME A DAY Clinics ceftriaxone ceftriaxone No 500mg ceftriaxon [facility] 500 mg 500 mg e 500 mg Communi solution solution solution ty for for for Hospita injection injection injection l Take 500 mg Take 500 mg Take 500 Clinics by by mg by injection injection injection route. pt route. pt route. pt tolerated tolerated tolerated well well well cholecalcif cholecalcif No cholecalci [facility] ghada ghada ferol Communi (vitamin (vitamin (vitamin ty D3) 1,250 D3) 1,250 D3) 1,250 Hospita mcg (50,000 mcg (50,000 mcg l unit) unit) (50,000 Clinics capsule capsule unit) TAKE 1 TAKE 1 capsule CAPSULE CAPSULE TAKE 1 EVERY 15 EVERY 15 CAPSULE DAYS DAYS EVERY 15 DAYS clonazepam clonazepam No clonazepam [facility] 0.5 mg 0.5 mg 0.5 mg Communi tablet TAKE tablet TAKE tablet ty 1 TABLET BY 1 TABLET BY TAKE 1 Hospita MOUTH EVERY MOUTH EVERY TABLET BY l DAY DAY MOUTH Clinics NEEDED NEEDED EVERY DAY NEEDED cyclobenzap cyclobenzap No cyclobenza [facility] rine 10 mg rine 10 mg rita 10 Communi tablet tablet mg tablet ty Hospita l Clinics diclofenac diclofenac No diclofenac [facility] sodium 75 sodium 75 sodium 75 Communi [...] DAY EVERY DAY famotidine famotidine No famotidine [facility] 20 mg 20 mg 20 mg Communi tablet Take tablet Take tablet ty 1 tablet 1 tablet Take 1 Hospi ta daily by daily by tablet l mouth mouth daily by Clinics mouth ferrous ferrous No ferrous [facility] sulfate 220 sulfate 220 sulfate Communi mg (44 mg mg (44 mg 220 mg (44 ty iron)/5 mL iron)/5 mL mg iron)/5 Hospita oral elixir oral elixir mL oral l Take 5 ML Take 5 ML elixir Cli nics BID by BID by Take 5 ML mouth mouth BID by mouth glipizide glipizide No glipizide [facility] ER 2.5 mg ER 2.5 mg ER 2.5 mg Communi tablet, tablet, tablet, ty extended extended extended [facility] release 24 release 24 release 24 l hr hr hr Clinics Humatrope 6 Humatrope 6 No Humatrope [facility] mg (18 mg (18 6 mg (18 Communi unit) unit) unit) ty injection injection injection [facility] cartridge cartridge cartridge l INJECT INJECT INJECT Clinics 0.3MG 0.3MG 0.3MG SUBCUTANEOU SUBCUTANEOU SUBCUTANEO SLY EVERY SLY EVERY USLY EVERY DAY DAY DAY hydrocortis hydrocortis No hydrocorti [facility] one 20 mg one 20 mg sone 20 mg Communi tablet TAKE tablet TAKE tablet ty 2 TABLETS 2 TABLETS TAKE 2 [facility] BY MOUTH BY MOUTH TABLETS BY l EVERY DAY EVERY DAY MOUTH Clin ics IN THE IN THE EVERY DAY MORNING MORNING IN THE MORNING isosorbide isosorbide No isosorbide [facility] mononitrate mononitrate mononitrat Communi ER 30 mg ER 30 mg e ER 30 mg t y tablet,exte tablet,exte tablet,ext Hospita nded nded ended l release 24 release 24 release 24 Clinics hr TAKE 1 hr TAKE 1 hr TAKE 1 TABLET BY TABLET BY TABLET BY MOUTH EVERY MOUTH EVERY MOUTH DAY DAY EVERY DAY Klor-Con 10 Klor-Con 10 No Klor-Con [facility] mEq mEq 10 mEq Communi tablet,exte tablet,exte tablet,ext ty nded nded ended Hospita release release release l TAKE 1 TAKE 1 TAKE 1 Clinics TABLET BY TABLET BY TABLET BY MOUTH EVERY MOUTH EVERY MOUTH DAY WITH DAY WITH EVERY DAY FOOD FOOD WITH FOOD levothyroxi levothyroxi No levothyrox [facility] ne 112 mcg ne 112 mcg ine 112 Communi tablet 1 tablet 1 mcg tablet t y TAB DAILY TAB DAILY 1 TAB [facility] 1/2 HR. 1/2 HR. DAILY 1/2 l BEFORE BEFORE HR. BEFORE Clini cs BREAKFAST BREAKFAST BREAKFAST WITH WATER WITH WATER WITH WATER lidocaine lidocaine No 2.1mL lidocaine [facility] (PF) 10 (PF) 10 (PF) 10 Commun i mg/mL (1 %) mg/mL (1 %) mg/mL (1 ty injection injection %) [facility] ta solution solution injection l Take 2.1 mL Take 2.1 mL solution Clinics by by Take 2.1 injection injection mL by route. route. injection route. lidocaine lidocaine No 2.1mL Q1D lidocaine [facility] (PF) 50 (PF) 50 (PF) 50 Commun [...] mL lidocaine 5 lidocaine 5 No lidocaine [facility] % topical % topical 5 % Commu ni patch patch topical ty patch [facility] liothyronin liothyronin No liothyroni [facility] e 5 mcg e 5 mcg ne 5 mcg Commu ni tablet tablet tablet ty [facility] mirtazapine mirtazapine No mirtazapin [facility] 15 mg 15 mg e 15 mg Communi tablet TAKE tablet TAKE tablet ty 1 TABLET BY 1 TABLET BY TAKE 1 Hospita MOUTH MOUTH TABLET BY l EVERYDAY AT EVERYDAY AT MOUTH Clinics BEDTIME BEDTIME EVERYDAY AT BEDTIME nitroglycer nitroglycer No 1 nitroglyce [facility] in 0.4 mg in 0.4 mg rin 0.4 mg Communi sublingual sublingual sublingual ty tablet tablet tablet [facility] [address] 1 l tablet as tablet as tablet as Clinics needed by needed by needed by sublingual sublingual sublingual route. route. route. 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 Clinics OneTouch OneTouch No OneTouch Swe madeleine Verio test Verio test Verio test Communi strips TEST strips TEST strips ty TWICE A DAY TWICE A DAY TEST TWICE Hospita A DAY l Clinics pantoprazol pantoprazol No pantoprazo [facility] e 40 mg e 40 mg le 40 mg Commu ni tablet,indira tablet,indira tablet,del ty yed release yed release ayed H [facility]spita Take 1 Take 1 release l tablet BID tablet BID Take 1 C linics by mouth by mouth tablet BID by mouth phenazopyri phenazopyri No phenazopyr [facility] dine 200 mg dine 200 mg idine 200 Communi tablet TAKE tablet TAKE mg tablet ty 1 TABLET BY 1 TABLET BY TAKE 1 Hospita MOUTH THREE MOUTH THREE TABLET BY l TIMES A DAY TIMES A DAY MOUTH Clinics FOR 3 DAYS FOR 3 DAYS THREE TIMES A DAY FOR 3 DAYS potassium potassium No potassium [facility] chloride ER chloride ER chloride Communi 20 mEq 20 mEq ER 20 mEq ty tablet,exte tablet,exte tablet,ext Hospita nded nded ended l release(par release(par release(dc Clinics t/cryst) t/cryst) rt/cryst) TAKE 1 TAKE 1 TAKE 1 TABLET BY TABLET BY TABLET BY MOUTH EVERY MOUTH EVERY MOUTH DAY DAY EVERY DAY Santyl 250 Santyl 250 No Santyl 250 [facility] unit/gram unit/gram unit/gram [facility]i topical topical topical ty ointment ointment ointment [facility] APPLY A APPLY A APPLY A l [facility] THICK THICK THICK AMOUNT TO AMOUNT TO AMOUNT TO WOUND 3 WOUND 3 WOUND 3 TIMES A TIMES A TIMES A WEEK WEEK WEEK sotalol 160 sotalol 160 No sotalol [facility] mg tablet mg tablet 160 mg Com raz TAKE 1 TAKE 1 tablet ty TABLET BY TABLET BY TAKE 1 [facility] MOUTH EVERY MOUTH EVERY TABLET BY l DAY DAY MOUTH Clinics EVERY DAY sulfamethox sulfamethox No sulfametho [facility] azole 800 azole 800 xazole 800 Communi [...] Suprax 200 No 5mL BID Suprax 200 [facility] mg/5 mL mg/5 mL mg/5 mL Commun i oral oral oral ty suspension suspension suspension [facility] Take 5 mL Take 5 mL Take 5 mL l twice a day twice a day twice a Clinics by oral by oral day by route for 7 route for 7 oral route days. days. for 7 days. tramadol 50 tramadol 50 No tramadol [facility] mg tablet mg tablet 50 mg Comm uni TAKE 1 TAKE 1 tablet ty TABLET BY TABLET BY TAKE 1 [facility] MOUTH AT MOUTH AT TABLET BY l BEDTIME AND BEDTIME AND MOUTH AT Clinics IN MORNING IN MORNING BEDTIME AND IN MORNING amlodipine amlodipine No amlodipine [facility] 5 mg tablet 5 mg tablet 5 mg C [facility] TAKE 1 TAKE 1 tablet ty TABLET BY TABLET BY TAKE 1 [facility] MOUTH EVERY MOUTH EVERY TABLET BY l DAY DAY MOUTH Clinics EVERY DAY atorvastati atorvastati No atorvastat [facility] n 20 mg n 20 mg in 20 mg Commu ni tablet TAKE tablet TAKE tablet ty 1 TABLET BY 1 TABLET BY TAKE 1 Hospita MOUTH EVERY MOUTH EVERY TABLET BY l DAY FOR 90 DAY FOR 90 MOUTH Cl inics DAYS DAYS EVERY DAY FOR 90 DAYS BD Kalee 2nd BD Kalee 2nd No BD Kalee [facility] Gen Pen Gen Pen 2nd Gen Commun i Needle 32 Needle 32 Pen Needle ty gauge x gauge x 32 gauge x [facility] " 1 " 1 " 1 l TIME A DAY TIME A DAY TIME A DAY Clinics ceftriaxone ceftriaxone No 500mg ceftriaxon [facility] 500 mg 500 mg e 500 mg Communi solution solution solution ty for for for Hospita injection injection injection l Take 500 mg Take 500 mg Take 500 Clinics by by mg by injection injection injection route. pt route. pt route. pt tolerated tolerated tolerated well well well cholecalcif cholecalcif No cholecalci [facility] ghada ghada ferol Communi (vitamin (vitamin (vitamin ty D3) 1,250 D3) 1,250 D3) 1,250 Hospita mcg (50,000 mcg (50,000 mcg l unit) unit) (50,000 Clinics capsule capsule unit) TAKE 1 TAKE 1 capsule CAPSULE CAPSULE TAKE 1 EVERY 15 EVERY 15 CAPSULE DAYS DAYS EVERY 15 DAYS clonazepam clonazepam No clonazepam [facility] 0.5 mg 0.5 mg 0.5 mg Communi tablet TAKE tablet TAKE tablet ty 1 TABLET BY 1 TABLET BY TAKE 1 Hospita MOUTH EVERY MOUTH EVERY TABLET BY l DAY DAY MOUTH Clinics NEEDED NEEDED EVERY DAY NEEDED cyclobenzap cyclobenzap No cyclobenza [facility] rine 10 mg rine 10 mg rita 10 Communi tablet tablet mg tablet ty Hospita l Clinics diclofenac diclofenac No diclofenac [facility] sodium 75 sodium 75 sodium 75 Communi [...] DAY EVERY DAY famotidine famotidine No famotidine [facility] 20 mg 20 mg 20 mg Communi tablet Take tablet Take tablet ty 1 tablet 1 tablet Take 1 Hospi ta daily by daily by tablet l mouth mouth daily by Clinics mouth ferrous ferrous No ferrous [facility] sulfate 220 sulfate 220 sulfate Communi mg (44 mg mg (44 mg 220 mg (44 ty iron)/5 mL iron)/5 mL mg iron)/5 Hospita oral elixir oral elixir mL oral l Take 5 ML Take 5 ML elixir Cli nics BID by BID by Take 5 ML mouth mouth BID by mouth glipizide glipizide No glipizide [facility] ER 2.5 mg ER 2.5 mg ER 2.5 mg Communi tablet, tablet, tablet, ty extended extended extended [facility] release 24 release 24 release 24 l hr hr hr Clinics Humatrope 6 Humatrope 6 No Humatrope [facility] mg (18 mg (18 6 mg (18 Communi unit) unit) unit) ty injection injection injection [facility] cartridge cartridge cartridge l INJECT INJECT INJECT Clinics 0.3MG 0.3MG 0.3MG SUBCUTANEOU SUBCUTANEOU SUBCUTANEO SLY EVERY SLY EVERY USLY EVERY DAY DAY DAY hydrocortis hydrocortis No hydrocorti [facility] one 20 mg one 20 mg sone 20 mg Communi tablet TAKE tablet TAKE tablet ty 2 TABLETS 2 TABLETS TAKE 2 [facility] BY MOUTH BY MOUTH TABLETS BY l EVERY DAY EVERY DAY MOUTH Clin ics IN THE IN THE EVERY DAY MORNING MORNING IN THE MORNING isosorbide isosorbide No isosorbide [facility] mononitrate mononitrate mononitrat Communi ER 30 mg ER 30 mg e ER 30 mg t y tablet,exte tablet,exte tablet,ext Hospita nded nded ended l release 24 release 24 release 24 Clinics hr TAKE 1 hr TAKE 1 hr TAKE 1 TABLET BY TABLET BY TABLET BY MOUTH EVERY MOUTH EVERY MOUTH DAY DAY EVERY DAY Klor-Con 10 Klor-Con 10 No Klor-Con [facility] mEq mEq 10 mEq Communi tablet,exte tablet,exte tablet,ext ty nded nded ended [facility] release release release l TAKE 1 TAKE 1 TAKE 1 Clinics TABLET BY TABLET BY TABLET BY MOUTH EVERY MOUTH EVERY MOUTH DAY WITH DAY WITH EVERY DAY FOOD FOOD WITH FOOD levothyroxi levothyroxi No levothyrox [facility] ne 112 mcg ne 112 mcg ine 112 Communi tablet 1 tablet 1 mcg tablet t y TAB DAILY TAB DAILY 1 TAB [facility] 1/2 HR. 1/2 HR. DAILY 1/2 l BEFORE BEFORE HR. BEFORE Clini cs BREAKFAST BREAKFAST BREAKFAST WITH WATER WITH WATER WITH WATER lidocaine lidocaine No 2.1mL lidocaine [facility] (PF) 10 (PF) 10 (PF) 10 Commun i mg/mL (1 %) mg/mL (1 %) mg/mL (1 ty injection injection %) [facility] ta solution solution injection l Take 2.1 mL Take 2.1 mL solution Clinics by by Take 2.1 injection injection mL by route. route. injection route. lidocaine lidocaine No 2.1mL Q1D lidocaine [facility] (PF) 50 (PF) 50 (PF) 50 Commun i mg/5 mL (1 mg/5 mL (1 mg/5 mL (1 ty %) %) %) [facility] injection injection injection l syringe syringe [...] mL lidocaine 5 lidocaine 5 No lidocaine [facility] % topical % topical 5 % Commu ni patch patch topical ty patch [facility] liothyronin liothyronin No liothyroni [facility] e 5 mcg e 5 mcg ne 5 mcg Commu ni tablet tablet tablet ty [facility] mirtazapine mirtazapine No mirtazapin [facility] 15 mg 15 mg e 15 mg Communi tablet TAKE tablet TAKE tablet ty 1 TABLET BY 1 TABLET BY TAKE 1 [facility] MOUTH MOUTH TABLET BY l EVERYDAY AT EVERYDAY AT MOUTH Clinics BEDTIME BEDTIME EVERYDAY AT BEDTIME nitroglycer nitroglycer No 1 nitroglyce [facility] in 0.4 mg in 0.4 mg rin 0.4 mg Communi sublingual sublingual sublingual ty tablet tablet tablet Hospita Place [address] 1 l tablet as tablet as tablet as Clinics needed by needed by needed by sublingual sublingual sublingual route. route. route. omeprazole omeprazole No omeprazole [facility] 20 mg 20 mg 20 mg Communi [...] DAY l Clinics pantoprazol pantoprazol No pantoprazo [facility] e 40 mg e 40 mg le 40 mg Commu ni tablet,indira tablet,indira tablet,del ty yed release yed release ayed [facility] Take 1 Take 1 release l tablet BID tablet BID Take 1 C linics by mouth by mouth tablet BID by mouth phenazopyri phenazopyri No phenazopyr [facility] dine 200 mg dine 200 mg idine 200 Communi tablet TAKE tablet TAKE mg tablet ty 1 TABLET BY 1 TABLET BY TAKE 1 Hospita MOUTH THREE MOUTH THREE TABLET BY l TIMES A DAY TIMES A DAY MOUTH Clinics FOR 3 DAYS FOR 3 DAYS THREE TIMES A DAY FOR 3 DAYS potassium potassium No potassium [facility] chloride ER chloride ER chloride Communi 20 mEq 20 mEq ER 20 mEq ty tablet,exte tablet,exte tablet,ext Hospita nded nded ended l release(par release(par release(dc Clinics t/cryst) t/cryst) rt/cryst) TAKE 1 TAKE 1 TAKE 1 TABLET BY TABLET BY TABLET BY MOUTH EVERY MOUTH EVERY MOUTH DAY DAY EVERY DAY Santyl 250 Santyl 250 No Santyl 250 [facility] unit/gram unit/gram unit/gram Communi topical topical topical ty ointment ointment ointment [facility] APPLY A APPLY A APPLY A l [facility] THICK THICK THICK AMOUNT TO AMOUNT TO AMOUNT TO WOUND 3 WOUND 3 WOUND 3 TIMES A TIMES A TIMES A WEEK WEEK WEEK sotalol 160 sotalol 160 No sotalol [facility] mg tablet mg tablet 160 mg Com raz TAKE 1 TAKE 1 tablet ty TABLET BY TABLET BY TAKE 1 [facility] MOUTH EVERY MOUTH EVERY TABLET BY l DAY DAY MOUTH Clinics EVERY DAY sulfamethox sulfamethox No sulfametho [facility] azole 800 azole 800 xazole 800 Communi [...] Suprax 200 No 5mL BID Suprax 200 [facility] mg/5 mL mg/5 mL mg/5 mL Commun i oral oral oral ty suspension suspension suspension Hospita Take 5 mL Take 5 mL Take 5 mL l twice a day twice a day twice a Clinics by oral by oral day by route for 7 route for 7 oral route days. days. for 7 days. tramadol 50 tramadol 50 No tramadol [facility] mg tablet mg tablet 50 mg Comm uni TAKE 1 TAKE 1 tablet ty TABLET BY TABLET BY TAKE 1 [facility] MOUTH AT MOUTH AT TABLET BY l BEDTIME AND BEDTIME AND MOUTH AT Clinics IN MORNING IN MORNING BEDTIME AND IN MORNING amlodipine amlodipine No amlodipine [facility] 5 mg tablet 5 mg tablet 5 mg C [facility] TAKE 1 TAKE 1 tablet ty TABLET BY TABLET BY TAKE 1 [facility] MOUTH EVERY MOUTH EVERY TABLET BY l DAY DAY MOUTH Clinics EVERY DAY atorvastati atorvastati No atorvastat [facility] n 20 mg n 20 mg in 20 mg Commu ni tablet TAKE tablet TAKE tablet ty 1 TABLET BY 1 TABLET BY TAKE 1 Hospita MOUTH EVERY MOUTH EVERY TABLET BY l DAY FOR 90 DAY FOR 90 MOUTH Cl inics DAYS DAYS EVERY DAY FOR 90 DAYS BD Kalee 2nd BD Kalee 2nd No BD Kalee [facility] Gen Pen Gen Pen 2nd Gen Commun i Needle 32 Needle 32 Pen Needle ty gauge x gauge x 32 gauge x [facility] " 1 " 1 " 1 l TIME A DAY TIME A DAY TIME A DAY Clinics ceftriaxone ceftriaxone No 500mg ceftriaxon [facility] 500 mg 500 mg e 500 mg Communi solution solution solution ty for for for Hospita injection injection injection l Take 500 mg Take 500 mg Take 500 Clinics by by mg by injection injection injection route. pt route. pt route. pt tolerated tolerated tolerated well well well cholecalcif cholecalcif No cholecalci [facility] ghada ghada ferol Communi (vitamin (vitamin (vitamin ty D3) 1,250 D3) 1,250 D3) 1,250 Hospita mcg (50,000 mcg (50,000 mcg l unit) unit) (50,000 Clinics capsule capsule unit) TAKE 1 TAKE 1 capsule CAPSULE CAPSULE TAKE 1 EVERY 15 EVERY 15 CAPSULE DAYS DAYS EVERY 15 DAYS clonazepam clonazepam No clonazepam [facility] 0.5 mg 0.5 mg 0.5 mg Communi tablet TAKE tablet TAKE tablet ty 1 TABLET BY 1 TABLET BY TAKE 1 Hospita MOUTH EVERY MOUTH EVERY TABLET BY l DAY DAY MOUTH Clinics NEEDED NEEDED EVERY DAY NEEDED cyclobenzap cyclobenzap No cyclobenza [facility] rine 10 mg rine 10 mg rita 10 Communi tablet tablet mg tablet ty Hospita l Clinics diclofenac diclofenac No diclofenac [facility] sodium 75 sodium 75 sodium 75 Communi [...] DAY EVERY DAY famotidine famotidine No famotidine [facility] 20 mg 20 mg 20 mg Communi tablet Take tablet Take tablet ty 1 tablet 1 tablet Take 1 Hospi ta daily by daily by tablet l mouth mouth daily by Clinics mouth ferrous ferrous No ferrous [facility] sulfate 220 sulfate 220 sulfate Communi mg (44 mg mg (44 mg 220 mg (44 ty iron)/5 mL iron)/5 mL mg iron)/5 Hospita oral elixir oral elixir mL oral l Take 5 ML Take 5 ML elixir Cli nics BID by BID by Take 5 ML mouth mouth BID by mouth glipizide glipizide No glipizide [facility] ER 2.5 mg ER 2.5 mg ER 2.5 mg Communi tablet, tablet, tablet, ty extended extended extended [facility] release 24 release 24 release 24 l hr hr hr Clinics Humatrope 6 Humatrope 6 No Humatrope [facility] mg (18 mg (18 6 mg (18 Communi unit) unit) unit) ty injection injection injection Hosp[facility] cartridge cartridge cartridge l INJECT INJECT INJECT Clinics 0.3MG 0.3MG 0.3MG SUBCUTANEOU SUBCUTANEOU SUBCUTANEO SLY EVERY SLY EVERY USLY EVERY DAY DAY DAY hydrocortis hydrocortis No hydrocorti [facility] one 20 mg one 20 mg sone 20 mg Communi tablet TAKE tablet TAKE tablet ty 2 TABLETS 2 TABLETS TAKE 2 [facility] BY MOUTH BY MOUTH TABLETS BY l EVERY DAY EVERY DAY MOUTH Clin ics IN THE IN THE EVERY DAY MORNING MORNING IN THE MORNING isosorbide isosorbide No isosorbide [facility] mononitrate mononitrate mononitrat Communi ER 30 mg ER 30 mg e ER 30 mg t y tablet,exte tablet,exte tablet,ext Hospita nded nded ended l release 24 release 24 release 24 Clinics hr TAKE 1 hr TAKE 1 hr TAKE 1 TABLET BY TABLET BY TABLET BY MOUTH EVERY MOUTH EVERY MOUTH DAY DAY EVERY DAY Klor-Con 10 Klor-Con 10 No Klor-Con [facility] mEq mEq 10 mEq Communi tablet,exte tablet,exte tablet,ext ty nded nded ended Hospita release release release l TAKE 1 TAKE 1 TAKE 1 Clinics TABLET BY TABLET BY TABLET BY MOUTH EVERY MOUTH EVERY MOUTH DAY WITH DAY WITH EVERY DAY FOOD FOOD WITH FOOD levothyroxi levothyroxi No levothyrox [facility] ne 112 mcg ne 112 mcg ine 112 Communi tablet 1 tablet 1 mcg tablet t y TAB DAILY TAB DAILY 1 TAB [facility] 1/2 HR. 1/2 HR. DAILY 1/2 l BEFORE BEFORE HR. BEFORE Clini cs BREAKFAST BREAKFAST BREAKFAST WITH WATER WITH WATER WITH WATER lidocaine lidocaine No 2.1mL lidocaine [facility] (PF) 10 (PF) 10 (PF) 10 Commun i mg/mL (1 %) mg/mL (1 %) mg/mL (1 ty injection injection %) [facility] ta solution solution injection l Take 2.1 mL Take 2.1 mL solution Clinics by by Take 2.1 injection injection mL by route. route. injection route. lidocaine lidocaine No 2.1mL Q1D lidocaine [facility] (PF) 50 (PF) 50 (PF) 50 Commun i mg/5 mL (1 mg/5 mL (1 mg/5 mL (1 ty %) %) %) [facility] injection injection injection l syringe syringe [...] mL lidocaine 5 lidocaine 5 No lidocaine [facility] % topical % topical 5 % Commu ni patch patch topical ty patch [facility] liothyronin liothyronin No liothyroni [facility] e 5 mcg e 5 mcg ne 5 mcg Commu ni tablet tablet tablet ty [facility] mirtazapine mirtazapine No mirtazapin [facility] 15 mg 15 mg e 15 mg Communi tablet TAKE tablet TAKE tablet ty 1 TABLET BY 1 TABLET BY TAKE 1 [facility] MOUTH MOUTH TABLET BY l EVERYDAY AT EVERYDAY AT MOUTH Clinics BEDTIME BEDTIME EVERYDAY AT BEDTIME nitroglycer nitroglycer No 1 nitroglyce [facility] in 0.4 mg in 0.4 mg rin 0.4 mg Communi sublingual sublingual sublingual ty tablet tablet tablet [facility] Place [address] 1 l tablet as tablet as tablet as Clinics needed by needed by needed by sublingual sublingual sublingual route. route. route. omeprazole omeprazole No omeprazole [facility] 20 mg 20 mg 20 mg Communi capsule,del capsule,del capsule,de ty ayed ayed layed [facility] release release release l TAKE 1 TAKE 1 TAKE 1 Clinics CAPSULE BY CAPSULE BY CAPSULE BY MOUTH EVERY MOUTH EVERY MOUTH MORNING MORNING EVERY MORNING OneTouch OneTouch No OneTouch Swe madeleine [facility] Lancets 30 Lancets 30 Lancets 30 ty gauge TEST gauge TEST gauge TEST [facility] TWICE A DAY TWICE A DAY [...] DAY l Clinics pantoprazol pantoprazol No pantoprazo [facility] e 40 mg e 40 mg le 40 mg Commu ni tablet,indira tablet,indira tablet,del ty yed release yed release ayed [facility] Take 1 Take 1 release l tablet BID tablet BID Take 1 C linics by mouth by mouth tablet BID by mouth phenazopyri phenazopyri No phenazopyr [facility] dine 200 mg dine 200 mg idine 200 Communi tablet TAKE tablet TAKE mg tablet ty 1 TABLET BY 1 TABLET BY TAKE 1 Hospita MOUTH THREE MOUTH THREE TABLET BY l TIMES A DAY TIMES A DAY MOUTH Clinics FOR 3 DAYS FOR 3 DAYS THREE TIMES A DAY FOR 3 DAYS potassium potassium No potassium [facility] chloride ER chloride ER chloride Communi 20 mEq 20 mEq ER 20 mEq ty tablet,exte tablet,exte tablet,ext Hospita nded nded ended l release(par release(par release(pa Clinics t/cryst) t/cryst) rt/cryst) TAKE 1 TAKE 1 TAKE 1 TABLET BY TABLET BY TABLET BY MOUTH EVERY MOUTH EVERY MOUTH DAY DAY EVERY DAY Santyl 250 Santyl 250 No Santyl 250 [facility] unit/gram unit/gram unit/gram Communi topical topical topical ty ointment ointment ointment [facility] APPLY A APPLY A APPLY A l [facility] THICK THICK THICK AMOUNT TO AMOUNT TO AMOUNT TO WOUND 3 WOUND 3 WOUND 3 TIMES A TIMES A TIMES A WEEK WEEK WEEK sotalol 160 sotalol 160 No sotalol [facility] mg tablet mg tablet 160 mg Com raz TAKE 1 TAKE 1 tablet ty TABLET BY TABLET BY TAKE 1 [facility] MOUTH EVERY MOUTH EVERY TABLET BY l DAY DAY MOUTH Clinics EVERY DAY sulfamethox sulfamethox No sulfametho [facility] azole 800 azole 800 xazole 800 Communi [...] Suprax 200 No 5mL BID Suprax 200 [facility] mg/5 mL mg/5 mL mg/5 mL Commun i oral oral oral ty suspension suspension suspension Hospita Take 5 mL Take 5 mL Take 5 mL l twice a day twice a day twice a Clinics by oral by oral day by route for 7 route for 7 oral route days. days. for 7 days. tramadol 50 tramadol 50 No tramadol [facility] mg tablet mg tablet 50 mg Comm uni TAKE 1 TAKE 1 tablet ty TABLET BY TABLET BY TAKE 1 [facility] MOUTH AT MOUTH AT TABLET BY l BEDTIME AND BEDTIME AND MOUTH AT Clinics IN MORNING IN MORNING BEDTIME AND IN MORNING amlodipine amlodipine No amlodipine [facility] 5 mg tablet 5 mg tablet 5 mg C [facility] TAKE 1 TAKE 1 tablet ty TABLET BY TABLET BY TAKE 1 [facility] MOUTH EVERY MOUTH EVERY TABLET BY l DAY DAY MOUTH Clinics EVERY DAY atorvastati atorvastati No atorvastat [facility] n 20 mg n 20 mg in 20 mg Commu ni tablet TAKE tablet TAKE tablet ty 1 TABLET BY 1 TABLET BY TAKE 1 Hospita MOUTH EVERY MOUTH EVERY TABLET BY l DAY FOR 90 DAY FOR 90 MOUTH Cl inics DAYS DAYS EVERY DAY FOR 90 DAYS BD Kalee 2nd BD Kalee 2nd No BD Kalee [facility] Gen Pen Gen Pen 2nd Gen Commun i Needle 32 Needle 32 Pen Needle ty gauge x gauge x 32 gauge x [facility] /32" 1 32" 1 " 1 l TIME A DAY TIME A DAY TIME A DAY Clinics ceftriaxone ceftriaxone No 500mg ceftriaxon [facility] 500 mg 500 mg e 500 mg Communi solution solution solution ty for for for Hospita injection injection injection l Take 500 mg Take 500 mg Take 500 Clinics by by mg by injection injection injection route. pt route. pt route. pt tolerated tolerated tolerated well well well cholecalcif cholecalcif No cholecalci [facility] ghada ghada ferol Communi (vitamin (vitamin (vitamin ty D3) 1,250 D3) 1,250 D3) 1,250 Hospita mcg (50,000 mcg (50,000 mcg l unit) unit) (50,000 Clinics capsule capsule unit) TAKE 1 TAKE 1 capsule CAPSULE CAPSULE TAKE 1 EVERY 15 EVERY 15 CAPSULE DAYS DAYS EVERY 15 DAYS clonazepam clonazepam No clonazepam [facility] 0.5 mg 0.5 mg 0.5 mg Communi tablet TAKE tablet TAKE tablet ty 1 TABLET BY 1 TABLET BY TAKE 1 Hospita MOUTH EVERY MOUTH EVERY TABLET BY l DAY DAY MOUTH Clinics NEEDED NEEDED EVERY DAY NEEDED cyclobenzap cyclobenzap No cyclobenza [facility] rine 10 mg rine 10 mg rita 10 Communi tablet tablet mg tablet ty Hospita l Clinics diclofenac diclofenac No diclofenac [facility] sodium 75 sodium 75 sodium 75 Communi [...] DAY EVERY DAY famotidine famotidine No famotidine [facility] 20 mg 20 mg 20 mg Communi tablet Take tablet Take tablet ty 1 tablet 1 tablet Take 1 Hospi ta daily by daily by tablet l mouth mouth daily by Clinics mouth ferrous ferrous No ferrous [facility] sulfate 220 sulfate 220 sulfate Communi mg (44 mg mg (44 mg 220 mg (44 ty iron)/5 mL iron)/5 mL mg iron)/5 Hospita oral elixir oral elixir mL oral l Take 5 ML Take 5 ML elixir Cli nics BID by BID by Take 5 ML mouth mouth BID by mouth glipizide glipizide No glipizide [facility] ER 2.5 mg ER 2.5 mg ER 2.5 mg Communi tablet, tablet, tablet, ty extended extended extended [facility] release 24 release 24 release 24 l hr hr hr Clinics Humatrope 6 Humatrope 6 No Humatrope [facility] mg (18 mg (18 6 mg (18 Communi unit) unit) unit) ty injection injection injection [facility] cartridge cartridge cartridge l INJECT INJECT INJECT [facility] 0.3MG 0.3MG 0.3MG SUBCUTANEOU SUBCUTANEOU SUBCUTANEO SLY EVERY SLY EVERY USLY EVERY DAY DAY DAY hydrocortis hydrocortis No hydrocorti [facility] one 20 mg one 20 mg sone 20 mg Communi tablet TAKE tablet TAKE tablet ty 2 TABLETS 2 TABLETS TAKE 2 [facility] BY MOUTH BY MOUTH TABLETS BY l EVERY DAY EVERY DAY MOUTH Clin ics IN THE IN THE EVERY DAY MORNING MORNING IN THE MORNING isosorbide isosorbide No isosorbide [facility] mononitrate mononitrate mononitrat Communi ER 30 mg ER 30 mg e ER 30 mg t y tablet,exte tablet,exte tablet,ext Hospita nded nded ended l release 24 release 24 release 24 Clinics hr TAKE 1 hr TAKE 1 hr TAKE 1 TABLET BY TABLET BY TABLET BY MOUTH EVERY MOUTH EVERY MOUTH DAY DAY EVERY DAY Klor-Con 10 Klor-Con 10 No Klor-Con [facility] mEq mEq 10 mEq Communi tablet,exte tablet,exte tablet,ext ty nded nded ended [facility]osp[facility] release release release l TAKE 1 TAKE 1 TAKE 1 Clinics TABLET BY TABLET BY TABLET BY MOUTH EVERY MOUTH EVERY MOUTH DAY WITH DAY WITH EVERY DAY FOOD FOOD WITH FOOD levothyroxi levothyroxi No levothyrox [facility] ne 112 mcg ne 112 mcg ine 112 Communi tablet 1 tablet 1 mcg tablet t y TAB DAILY TAB DAILY 1 TAB [facility] 1/2 HR. 1/2 HR. DAILY 1/2 l BEFORE BEFORE HR. BEFORE Clini cs BREAKFAST BREAKFAST BREAKFAST WITH WATER WITH WATER WITH WATER lidocaine lidocaine No 2.1mL lidocaine [facility] (PF) 10 (PF) 10 (PF) 10 Commun i mg/mL (1 %) mg/mL (1 %) mg/mL (1 ty injection injection %) Hospi ta solution solution injection l Take 2.1 mL Take 2.1 mL solution Clinics by by Take 2.1 injection injection mL by route. route. injection route. lidocaine lidocaine No 2.1mL Q1D lidocaine [facility] (PF) 50 (PF) 50 (PF) 50 Commun [...] mL lidocaine 5 lidocaine 5 No lidocaine [facility] % topical % topical 5 % Commu ni patch patch topical ty patch Hosp[facility] l Clinics liothyronin liothyronin No liothyroni [facility] e 5 mcg e 5 mcg ne 5 mcg Commu ni tablet tablet tablet ty [facility]osp[facility] l Clinics mirtazapine mirtazapine No mirtazapin [facility] 15 mg 15 mg e 15 mg Communi tablet TAKE tablet TAKE tablet ty 1 TABLET BY 1 TABLET BY TAKE 1 Hospita MOUTH MOUTH TABLET BY l EVERYDAY AT EVERYDAY AT MOUTH Clinics BEDTIME BEDTIME EVERYDAY AT BEDTIME nitroglycer nitroglycer No 1 nitroglyce [facility] in 0.4 mg in 0.4 mg rin 0.4 mg Communi sublingual sublingual sublingual ty tablet tablet tablet Hospita Place [address] 1 l tablet as tablet as tablet as Clinics needed by needed by needed by sublingual sublingual sublingual route. route. route. omeprazole omeprazole No omeprazole [facility] 20 mg 20 mg 20 mg Communi [...] ty gauge TEST gauge TEST gauge TEST [facility] TWICE A DAY TWICE A DAY TWICE [...] DAY l Clinics pantoprazol pantoprazol No pantoprazo [facility] e 40 mg e 40 mg le 40 mg Commu ni tablet,indira tablet,indira tablet,del ty yed release yed release ayed [facility] Take 1 Take 1 release l tablet BID tablet BID Take 1 C linics by mouth by mouth tablet BID by mouth phenazopyri phenazopyri No phenazopyr [facility] dine 200 mg dine 200 mg idine 200 [facility]i tablet TAKE tablet TAKE mg tablet ty 1 TABLET BY 1 TABLET BY TAKE 1 Hospita MOUTH THREE MOUTH THREE TABLET BY l TIMES A DAY TIMES A DAY MOUTH Clinics FOR 3 DAYS FOR 3 DAYS THREE TIMES A DAY FOR 3 DAYS potassium potassium No potassium [facility] chloride ER chloride ER chloride Communi 20 mEq 20 mEq ER 20 mEq ty tablet,exte tablet,exte tablet,ext [facility]ospita nded nded ended l release(par release(par release(dc Clinics t/cryst) t/cryst) rt/cryst) TAKE 1 TAKE 1 TAKE 1 TABLET BY TABLET BY TABLET BY MOUTH EVERY MOUTH EVERY MOUTH DAY DAY EVERY DAY Santyl 250 Santyl 250 No Santyl 250 [facility] unit/gram unit/gram unit/gram [facility]i topical topical topical ty ointment ointment ointment [facility] APPLY A APPLY A APPLY A l DIONY [facility] THICK THICK THICK AMOUNT TO AMOUNT TO AMOUNT TO WOUND 3 WOUND 3 WOUND 3 TIMES A TIMES A TIMES A WEEK WEEK WEEK sotalol 160 sotalol 160 No sotalol [facility] mg tablet mg tablet 160 mg Com raz TAKE 1 TAKE 1 tablet ty TABLET BY TABLET BY TAKE 1 [facility] MOUTH EVERY MOUTH EVERY TABLET BY l DAY DAY MOUTH Clinics EVERY DAY sulfamethox sulfamethox No sulfametho [facility] azole 800 azole 800 xazole 800 Communi [...] Suprax 200 No 5mL BID Suprax 200 [facility] mg/5 mL mg/5 mL mg/5 mL Commun i oral oral oral ty suspension suspension suspension [facility]osp[facility] Take 5 mL Take 5 mL Take 5 mL l twice a day twice a day twice a Clinics by oral by oral day by route for 7 route for 7 oral route days. days. for 7 days. tramadol 50 tramadol 50 No tramadol [facility] mg tablet mg tablet 50 mg Comm uni TAKE 1 TAKE 1 tablet ty TABLET BY TABLET BY TAKE 1 [facility] MOUTH AT MOUTH AT TABLET BY l BEDTIME AND BEDTIME AND MOUTH AT Clinics IN MORNING IN MORNING BEDTIME AND IN MORNING amlodipine amlodipine No amlodipine [facility] 5 mg tablet 5 mg tablet 5 mg [facility] TAKE 1 TAKE 1 tablet ty TABLET BY TABLET BY TAKE 1 [facility] MOUTH EVERY MOUTH EVERY TABLET BY l DAY DAY MOUTH Clinics EVERY DAY atorvastati atorvastati No atorvastat [facility] n 20 mg n 20 mg in 20 mg Commu ni tablet TAKE tablet TAKE tablet ty 1 TABLET BY 1 TABLET BY TAKE 1 [facility]ospita MOUTH EVERY MOUTH EVERY TABLET BY l DAY FOR 90 DAY FOR 90 MOUTH Cl inics DAYS DAYS EVERY DAY FOR 90 DAYS BD [facility] 2nd BD K[facility] 2nd No BD Kalee [facility] Gen Pen Gen Pen 2nd Gen Commun i Needle 32 Needle 32 Pen Needle ty gauge x gauge x 32 gauge x [facility] " 1 " 1 " 1 l TIME A DAY TIME A DAY TIME A DAY Clinics ceftriaxone ceftriaxone No 500mg ceftriaxon [facility] 500 mg 500 mg e 500 mg [facility] solution solution solution ty for for for [facility] injection injection injection l Take 500 mg Take 500 mg Take 500 Clinics by by mg by injection injection injection route. pt route. pt route. pt tolerated tolerated tolerated well well well cholecalcif cholecalcif No cholecalci [facility] ghada ghada ferol Communi (vitamin (vitamin (vitamin ty D3) 1,250 D3) 1,250 D3) 1,250 [facility]osp[facility] mcg (50,000 mcg (50,000 mcg l unit) unit) (50,000 Clinics capsule capsule unit) TAKE 1 TAKE 1 capsule CAPSULE CAPSULE TAKE 1 EVERY 15 EVERY 15 CAPSULE DAYS DAYS EVERY 15 DAYS clonazepam clonazepam No clonazepam [facility] 0.5 mg 0.5 mg 0.5 mg Communi tablet TAKE tablet TAKE tablet ty 1 TABLET BY 1 TABLET BY TAKE 1 [facility] MOUTH EVERY MOUTH EVERY TABLET BY l DAY DAY MOUTH Clinics NEEDED NEEDED EVERY DAY NEEDED cyclobenzap cyclobenzap No cyclobenza [facility] rine 10 mg rine 10 mg rita 10 Communi tablet tablet mg tablet ty [facility]osp[facility] l Clinics diclofenac diclofenac No diclofenac [facility] sodium 75 sodium 75 sodium 75 Communi [...] DAY EVERY DAY famotidine famotidine No famotidine [facility] 20 mg 20 mg 20 mg [facility] tablet Take tablet Take tablet ty 1 tablet 1 tablet Take 1 Hos[facility] ta daily by daily by tablet l mouth mouth daily by Clinics mouth ferrous ferrous No ferrous [facility] sulfate 220 sulfate 220 sulfate [facility] mg (44 mg mg (44 mg 220 mg (44 ty iron)/5 mL iron)/5 mL mg iron)/5 [facility]osp[facility] oral elixir oral elixir mL oral l Take 5 ML Take 5 ML elixir Cli nics BID by BID by Take 5 ML mouth mouth BID by mouth glipizide glipizide No glipizide [facility] ER 2.5 mg ER 2.5 mg ER 2.5 mg Communi tablet, tablet, tablet, ty extended extended extended [facility] release 24 release 24 release 24 l hr hr hr Clinics Humatrope 6 Humatrope 6 No Humatrope [facility] mg (18 mg (18 6 mg (18 [facility]i unit) unit) unit) ty [facility] INJECT INJECT Clinics 0.3MG 0.3MG 0.3MG SUBCUTANEOU SUBCUTANEOU SUBCUTANEO SLY EVERY SLY EVERY USLY EVERY DAY DAY DAY hydrocortis hydrocortis No hydrocorti [facility] one 20 mg one 20 mg sone 20 mg [facility] tablet TAKE tablet TAKE tablet ty 2 TABLETS 2 TABLETS TAKE 2 [facility] BY MOUTH BY MOUTH TABLETS BY l EVERY DAY EVERY DAY MOUTH Clin ics IN THE IN THE EVERY DAY MORNING MORNING IN THE MORNING isosorbide isosorbide No isosorbide [facility] mononitrate mononitrate mononitrat Communi ER 30 mg ER 30 mg e ER 30 mg t y tablet,exte tablet,exte tablet,ext [facility]osp[facility] nded nded ended l release 24 release 24 release 24 Clinics hr TAKE 1 hr TAKE 1 hr TAKE 1 TABLET BY TABLET BY TABLET BY MOUTH EVERY MOUTH EVERY MOUTH DAY DAY EVERY DAY Klor-Con 10 Klor-Con 10 No Klor-Con [facility] mEq mEq 10 mEq Communi tablet,exte tablet,exte tablet,ext ty nded nded ended Hospita release release release l TAKE 1 TAKE 1 TAKE 1 Clinics TABLET BY TABLET BY TABLET BY MOUTH EVERY MOUTH EVERY MOUTH DAY WITH DAY WITH EVERY DAY FOOD FOOD WITH FOOD levothyroxi levothyroxi No levothyrox [facility] ne 112 mcg ne 112 mcg ine 112 Communi tablet 1 tablet 1 mcg tablet t y TAB DAILY TAB DAILY 1 TAB [facility] 1/2 HR. 1/2 HR. DAILY 1/2 l BEFORE BEFORE HR. BEFORE Clini cs BREAKFAST BREAKFAST BREAKFAST WITH WATER WITH WATER WITH WATER lidocaine lidocaine No 2.1mL lidocaine [facility] (PF) 10 (PF) 10 (PF) 10 Commun i mg/mL (1 %) mg/mL (1 %) mg/mL (1 ty injection injection %) [facility] ta solution solution injection l Take 2.1 mL Take 2.1 mL solution Clinics by by Take 2.1 injection injection mL by route. route. injection route. lidocaine lidocaine No 2.1mL Q1D lidocaine [facility] (PF) 50 (PF) 50 (PF) 50 Commun [...] mL lidocaine 5 lidocaine 5 No lidocaine [facility] % topical % topical 5 % Commu ni patch patch topical ty patch [facility] liothyronin liothyronin No liothyroni [facility] e 5 mcg e 5 mcg ne 5 mcg Commu ni tablet tablet tablet ty [facility] mirtazapine mirtazapine No mirtazapin [facility] 15 mg 15 mg e 15 mg Communi tablet TAKE tablet TAKE tablet ty 1 TABLET BY 1 TABLET BY TAKE 1 [facility] MOUTH MOUTH TABLET BY l EVERYDAY AT EVERYDAY AT MOUTH Clinics BEDTIME BEDTIME EVERYDAY AT BEDTIME nitroglycer nitroglycer No 1 nitroglyce [facility] in 0.4 mg in 0.4 mg rin 0.4 mg Communi sublingual sublingual sublingual ty tablet tablet tablet [facility] Place [address] 1 l tablet as tablet as tablet as Clinics needed by needed by needed by sublingual sublingual sublingual route. route. route. omeprazole omeprazole No omeprazole [facility] 20 mg 20 mg 20 mg Communi [...] DAY l Clinics pantoprazol pantoprazol No pantoprazo [facility] e 40 mg e 40 mg le 40 mg Commu ni tablet,indira tablet,indira tablet,del ty yed release yed release ayed [facility] Take 1 Take 1 release l tablet BID tablet BID Take 1 C linics by mouth by mouth tablet BID by mouth phenazopyri phenazopyri No phenazopyr [facility] dine 200 mg dine 200 mg idine 200 Communi tablet TAKE tablet TAKE mg tablet ty 1 TABLET BY 1 TABLET BY TAKE 1 Hospita MOUTH THREE MOUTH THREE TABLET BY l TIMES A DAY TIMES A DAY MOUTH Clinics FOR 3 DAYS FOR 3 DAYS THREE TIMES A DAY FOR 3 DAYS potassium potassium No potassium [facility] chloride ER chloride ER chloride Communi 20 mEq 20 mEq ER 20 mEq ty tablet,exte tablet,exte tablet,ext [facility]ospita nded nded ended l release(par release(par release(dc Clinics t/cryst) t/cryst) rt/cryst) TAKE 1 TAKE 1 TAKE 1 TABLET BY TABLET BY TABLET BY MOUTH EVERY MOUTH EVERY MOUTH DAY DAY EVERY DAY Santyl 250 Santyl 250 No Santyl 250 [facility] unit/gram unit/gram unit/gram [facility] topical topical topical ty ointment ointment ointment [facility] APPLY A APPLY A APPLY A l DIONY DIONY [facility] THICK THICK THICK AMOUNT TO AMOUNT TO AMOUNT TO WOUND 3 WOUND 3 WOUND 3 TIMES A TIMES A TIMES A WEEK WEEK WEEK sotalol 160 sotalol 160 No sotalol [facility] mg tablet mg tablet 160 mg Com raz TAKE 1 TAKE 1 tablet ty TABLET BY TABLET BY TAKE 1 [facility] MOUTH EVERY MOUTH EVERY TABLET BY l DAY DAY MOUTH Clinics EVERY DAY sulfamethox sulfamethox No sulfametho [facility] azole 800 azole 800 xazole 800 Communi [...] Suprax 200 No 5mL BID Suprax 200 [facility] mg/5 mL mg/5 mL mg/5 mL Commun i oral oral oral ty suspension suspension suspension [facility]osp[facility] Take 5 mL Take 5 mL Take 5 mL l twice a day twice a day twice a Clinics by oral by oral day by route for 7 route for 7 oral route days. days. for 7 days. tramadol 50 tramadol 50 No tramadol [facility] mg tablet mg tablet 50 mg Comm uni TAKE 1 TAKE 1 tablet ty TABLET BY TABLET BY TAKE 1 [facility] MOUTH AT MOUTH AT TABLET BY l BEDTIME AND BEDTIME AND MOUTH AT Clinics IN MORNING IN MORNING BEDTIME AND IN MORNING amlodipine amlodipine No amlodipine [facility] 5 mg tablet 5 mg tablet 5 mg [facility] TAKE 1 TAKE 1 tablet ty TABLET BY TABLET BY TAKE 1 [facility] MOUTH EVERY MOUTH EVERY TABLET BY l DAY DAY MOUTH Clinics EVERY DAY atorvastati atorvastati No atorvastat [facility] n 20 mg n 20 mg in 20 mg Commu ni tablet TAKE tablet TAKE tablet ty 1 TABLET BY 1 TABLET BY TAKE 1 [facility]ospita MOUTH EVERY MOUTH EVERY TABLET BY l DAY FOR 90 DAY FOR 90 MOUTH Cl inics DAYS DAYS EVERY DAY FOR 90 DAYS BD Kalee 2nd BD Kalee 2nd No BD Kalee [facility] Gen Pen Gen Pen 2nd Gen Commun i Needle 32 Needle 32 Pen Needle ty gauge x gauge x 32 gauge x [facility] " 1 " 1 " 1 l TIME A DAY TIME A DAY TIME A DAY Clinics ceftriaxone ceftriaxone No 500mg ceftriaxon [facility] 500 mg 500 mg e 500 mg Communi solution solution solution ty for for for [facility]osp[facility] injection injection injection l Take 500 mg Take 500 mg Take 500 Clinics by by mg by injection injection injection route. pt route. pt route. pt tolerated tolerated tolerated well well well cholecalcif cholecalcif No cholecalci [facility] ghada ghada ferol Communi (vitamin (vitamin (vitamin ty D3) 1,250 D3) 1,250 D3) 1,250 [facility]osp[facility] mcg (50,000 mcg (50,000 mcg l unit) unit) (50,000 Clinics capsule capsule unit) TAKE 1 TAKE 1 capsule CAPSULE CAPSULE TAKE 1 EVERY 15 EVERY 15 CAPSULE DAYS DAYS EVERY 15 DAYS clonazepam clonazepam No clonazepam [facility] 0.5 mg 0.5 mg 0.5 mg Communi tablet TAKE tablet TAKE tablet ty 1 TABLET BY 1 TABLET BY TAKE 1 [facility] MOUTH EVERY MOUTH EVERY TABLET BY l DAY DAY MOUTH Clinics NEEDED NEEDED EVERY DAY NEEDED cyclobenzap cyclobenzap No cyclobenza [facility] rine 10 mg rine 10 mg rita 10 Communi tablet tablet mg tablet ty [facility]osp[facility] l Clinics diclofenac diclofenac No diclofenac [facility] sodium 75 sodium 75 sodium 75 Communi [...] DAY EVERY DAY famotidine famotidine No famotidine [facility] 20 mg 20 mg 20 mg Communi tablet Take tablet Take tablet ty 1 tablet 1 tablet Take 1 Hos[facility] ta daily by daily by tablet l mouth mouth daily by Clinics mouth ferrous ferrous No ferrous [facility] sulfate 220 sulfate 220 sulfate Communi mg (44 mg mg (44 mg 220 mg (44 ty iron)/5 mL iron)/5 mL mg iron)/5 [facility]osp[facility] oral elixir oral elixir mL oral l Take 5 ML Take 5 ML elixir Cli nics BID by BID by Take 5 ML mouth mouth BID by mouth glipizide glipizide No glipizide [facility] ER 2.5 mg ER 2.5 mg ER 2.5 mg Communi tablet, tablet, tablet, ty extended extended extended [facility] release 24 release 24 release 24 l hr hr hr Clinics Humatrope 6 Humatrope 6 No Humatrope [facility] mg (18 mg (18 6 mg (18 Communi unit) unit) unit) ty injection injection injection [facility] cartridge cartridge cartridge l INJECT INJECT INJECT Clinics 0.3MG 0.3MG 0.3MG SUBCUTANEOU SUBCUTANEOU SUBCUTANEO SLY EVERY SLY EVERY USLY EVERY DAY DAY DAY hydrocortis hydrocortis No hydrocorti [facility] one 20 mg one 20 mg sone 20 mg Communi tablet TAKE tablet TAKE tablet ty 2 TABLETS 2 TABLETS TAKE 2 [facility] BY MOUTH BY MOUTH TABLETS BY l EVERY DAY EVERY DAY MOUTH Clin ics IN THE IN THE EVERY DAY MORNING MORNING IN THE MORNING isosorbide isosorbide No isosorbide [facility] mononitrate mononitrate mononitrat Communi ER 30 mg ER 30 mg e ER 30 mg t y tablet,exte tablet,exte tablet,ext [facility]osp[facility] nded nded ended l release 24 release 24 release 24 Clinics hr TAKE 1 hr TAKE 1 hr TAKE 1 TABLET BY TABLET BY TABLET BY MOUTH EVERY MOUTH EVERY MOUTH DAY DAY EVERY DAY Klor-Con 10 Klor-Con 10 No Klor-Con [facility] mEq mEq 10 mEq Commun[facility] tablet,exte tablet,exte tablet,ext ty nded nded ended [facility]osp[facility] release release release l TAKE 1 TAKE 1 TAKE 1 Clinics TABLET BY TABLET BY TABLET BY MOUTH EVERY MOUTH EVERY MOUTH DAY WITH DAY WITH EVERY DAY FOOD FOOD WITH FOOD levothyroxi levothyroxi No levothyrox [facility] ne 112 mcg ne 112 mcg ine 112 Communi tablet 1 tablet 1 mcg tablet t y TAB DAILY TAB DAILY 1 TAB [facility] 1/2 HR. 1/2 HR. DAILY 1/2 l BEFORE BEFORE HR. BEFORE Clini cs BREAKFAST BREAKFAST BREAKFAST WITH WATER WITH WATER WITH WATER lidocaine lidocaine No 2.1mL lidocaine [facility] (PF) 10 (PF) 10 (PF) 10 Commun i mg/mL (1 %) mg/mL (1 %) mg/mL (1 ty injection injection %) [facility] solution solution injection l Take 2.1 mL Take 2.1 mL solution Clinics by by Take 2.1 injection injection mL by route. route. injection route. lidocaine lidocaine No 2.1mL Q1D lidocaine [facility] (PF) 50 (PF) 50 (PF) 50 Commun i mg/5 mL (1 mg/5 mL (1 mg/5 mL (1 ty %) %) %) [facility] injection injection injection l syringe syringe syringe Clinic s Take 2.1 mL Take 2.1 mL Take 2.1 every day every day mL every by by day by injection injection injection route. pt route. pt route. pt tolerated tolerated tolerated well, well, well, wasted 2.9 wasted 2.9 wasted 2.9 mL mL mL lidocaine 5 lidocaine 5 No lidocaine [facility] % topical % topical 5 % Commu ni patch patch topical ty patch [facility] liothyronin liothyronin No liothyroni [facility] e 5 mcg e 5 mcg ne 5 mcg Commu ni tablet tablet tablet ty [facility] mirtazapine mirtazapine No mirtazapin [facility] 15 mg 15 mg e 15 mg Communi tablet TAKE tablet TAKE tablet ty 1 TABLET BY 1 TABLET BY TAKE 1 [facility]osp[facility] MOUTH MOUTH TABLET BY l EVERYDAY AT EVERYDAY AT MOUTH Clinics BEDTIME BEDTIME EVERYDAY AT BEDTIME nitroglycer nitroglycer No 1 nitroglyce [facility] in 0.4 mg in 0.4 mg rin 0.4 mg Communi sublingual sublingual sublingual ty tablet tablet tablet [facility] [address] 1 l tablet as tablet as tablet as Clinics needed by needed by needed by sublingual sublingual sublingual route. route. route. omeprazole omeprazole No omeprazole [facility] 20 mg 20 mg 20 mg Communi [...] ty gauge TEST gauge TEST gauge TEST [facility] TWICE A DAY TWICE A DAY [...] DAY l Clinics pantoprazol pantoprazol No pantoprazo [facility] e 40 mg e 40 mg le 40 mg Commu ni tablet,indira tablet,indira tablet,del ty yed release yed release ayed [facility] Take 1 Take 1 release l tablet BID tablet BID Take 1 C linics by mouth by mouth tablet BID by mouth phenazopyri phenazopyri No phenazopyr [facility] dine 200 mg dine 200 mg idine 200 Communi tablet TAKE tablet TAKE mg tablet ty 1 TABLET BY 1 TABLET BY TAKE 1 [facility]osp[facility] MOUTH THREE MOUTH THREE TABLET BY l TIMES A DAY TIMES A DAY MOUTH Clinics FOR 3 DAYS FOR 3 DAYS THREE TIMES A DAY FOR 3 DAYS potassium potassium No potassium [facility] chloride ER chloride ER chloride Communi 20 mEq 20 mEq ER 20 mEq ty tablet,exte tablet,exte tablet,ext [facility]osp[facility] nded nded ended l release(par release(par release(dc Clinics t/cryst) t/cryst) rt/cryst) TAKE 1 TAKE 1 TAKE 1 TABLET BY TABLET BY TABLET BY MOUTH EVERY MOUTH EVERY MOUTH DAY DAY EVERY DAY Santyl 250 Santyl 250 No Santyl 250 [facility] unit/gram unit/gram unit/gram [facility]i topical topical topical ty ointment ointment ointment [facility] APPLY A APPLY A APPLY A l [facility] THICK THICK THICK AMOUNT TO AMOUNT TO AMOUNT TO WOUND 3 WOUND 3 WOUND 3 TIMES A TIMES A TIMES A WEEK WEEK WEEK sotalol 160 sotalol 160 No sotalol [facility] mg tablet mg tablet 160 mg Com raz TAKE 1 TAKE 1 tablet ty TABLET BY TABLET BY TAKE 1 [facility] MOUTH EVERY MOUTH EVERY TABLET BY l DAY DAY MOUTH Clinics EVERY DAY sulfamethox sulfamethox No sulfametho [facility] azole 800 azole 800 xazole 800 Communi [...] Suprax 200 No 5mL BID Suprax 200 [facility] mg/5 mL mg/5 mL mg/5 mL Commun i oral oral oral ty suspension suspension suspension [facility]osp[facility] Take 5 mL Take 5 mL Take 5 mL l twice a day twice a day twice a Clinics by oral by oral day by route for 7 route for 7 oral route days. days. for 7 days. tramadol 50 tramadol 50 No tramadol [facility] mg tablet mg tablet 50 mg Comm uni TAKE 1 TAKE 1 tablet ty TABLET BY TABLET BY TAKE 1 [facility] MOUTH AT MOUTH AT TABLET BY l BEDTIME AND BEDTIME AND MOUTH AT Clinics IN MORNING IN MORNING BEDTIME AND IN MORNING amlodipine amlodipine No amlodipine [facility] 5 mg tablet 5 mg tablet 5 mg [facility] TAKE 1 TAKE 1 tablet ty TABLET BY TABLET BY TAKE 1 [facility] MOUTH EVERY MOUTH EVERY TABLET BY l DAY DAY MOUTH Clinics EVERY DAY atorvastati atorvastati No atorvastat [facility] n 20 mg n 20 mg in 20 mg Commu ni tablet TAKE tablet TAKE tablet ty 1 TABLET BY 1 TABLET BY TAKE 1 [facility]osp[facility] MOUTH EVERY MOUTH EVERY TABLET BY l DAY FOR 90 DAY FOR 90 MOUTH Cl inics DAYS DAYS EVERY DAY FOR 90 DAYS BD Kalee 2nd BD Kale[facility] 2nd No BD Kalee [facility] Gen Pen Gen Pen 2nd Gen Commun i Needle 32 Needle 32 Pen Needle ty gauge x gauge x 32 gauge x [facility] 32" 1 " 1 " 1 l TIME A DAY TIME A DAY TIME A DAY Clinics ceftriaxone ceftriaxone No 500mg ceftriaxon [facility] 500 mg 500 mg e 500 mg Communi solution solution solution ty for for for [facility]osp[facility] injection injection injection l Take 500 mg Take 500 mg Take 500 Clinics by by mg by injection injection injection route. pt route. pt route. pt tolerated tolerated tolerated well well well cholecalcif cholecalcif No cholecalci [facility] ghada ghada ferol Communi (vitamin (vitamin (vitamin ty D3) 1,250 D3) 1,250 D3) 1,250 [facility]osp[facility] mcg (50,000 mcg (50,000 mcg l unit) unit) (50,000 Clinics capsule capsule unit) TAKE 1 TAKE 1 capsule CAPSULE CAPSULE TAKE 1 EVERY 15 EVERY 15 CAPSULE DAYS DAYS EVERY 15 DAYS clonazepam clonazepam No clonazepam [facility] 0.5 mg 0.5 mg 0.5 mg Communi tablet TAKE tablet TAKE tablet ty 1 TABLET BY 1 TABLET BY TAKE 1 [facility]osp[facility] MOUTH EVERY MOUTH EVERY TABLET BY l DAY DAY MOUTH Clinics NEEDED NEEDED EVERY DAY NEEDED cyclobenzap cyclobenzap No cyclobenza [facility] rine 10 mg rine 10 mg rita 10 Communi tablet tablet mg tablet ty [facility]osp[facility] l Clinics diclofenac diclofenac No diclofenac [facility] sodium 75 sodium 75 sodium 75 Communi [...] DAY EVERY DAY famotidine famotidine No famotidine [facility] 20 mg 20 mg 20 mg Communi tablet Take tablet Take tablet ty 1 tablet 1 tablet Take 1 Hos[facility] ta daily by daily by tablet l mouth mouth daily by Clinics mouth ferrous ferrous No ferrous [facility] sulfate 220 sulfate 220 sulfate [facility]i mg (44 mg mg (44 mg 220 mg (44 ty iron)/5 mL iron)/5 mL mg iron)/5 Hospita oral elixir oral elixir mL oral l Take 5 ML Take 5 ML elixir Cli nics BID by BID by Take 5 ML mouth mouth BID by mouth glipizide glipizide No glipizide [facility] ER 2.5 mg ER 2.5 mg ER 2.5 mg Communi tablet, tablet, tablet, ty extended extended extended [facility] release 24 release 24 release 24 l hr hr hr Clinics Humatrope 6 Humatrope 6 No Humatrope [facility] mg (18 mg (18 6 mg (18 Communi unit) unit) unit) ty injection injection injection [facility] cartridge cartridge cartridge l INJECT INJECT INJECT Clinics 0.3MG 0.3MG 0.3MG SUBCUTANEOU SUBCUTANEOU SUBCUTANEO SLY EVERY SLY EVERY USLY EVERY DAY DAY DAY hydrocortis hydrocortis No hydrocorti [facility] one 20 mg one 20 mg sone 20 mg Communi tablet TAKE tablet TAKE tablet ty 2 TABLETS 2 TABLETS TAKE 2 [facility] BY MOUTH BY MOUTH TABLETS BY l EVERY DAY EVERY DAY MOUTH Clin ics IN THE IN THE EVERY DAY MORNING MORNING IN THE MORNING isosorbide isosorbide No isosorbide [facility] mononitrate mononitrate mononitrat Communi ER 30 mg ER 30 mg e ER 30 mg t y tablet,exte tablet,exte tablet,ext [facility]ospita nded nded ended l release 24 release 24 release 24 Clinics hr TAKE 1 hr TAKE 1 hr TAKE 1 TABLET BY TABLET BY TABLET BY MOUTH EVERY MOUTH EVERY MOUTH DAY DAY EVERY DAY Klor-Con 10 Klor-Con 10 No Klor-Con [facility] mEq mEq 10 mEq Communi tablet,exte tablet,exte tablet,ext ty nded nded ended [facility]ospita release release release l TAKE 1 TAKE 1 TAKE 1 Clinics TABLET BY TABLET BY TABLET BY MOUTH EVERY MOUTH EVERY MOUTH DAY WITH DAY WITH EVERY DAY FOOD FOOD WITH FOOD levothyroxi levothyroxi No levothyrox [facility] ne 112 mcg ne 112 mcg ine 112 Communi tablet 1 tablet 1 mcg tablet t y TAB DAILY TAB DAILY 1 TAB [facility] 1/2 HR. 1/2 HR. DAILY 1/2 l BEFORE BEFORE HR. BEFORE Clini cs BREAKFAST BREAKFAST BREAKFAST WITH WATER WITH WATER WITH WATER lidocaine lidocaine No 2.1mL lidocaine [facility] (PF) 10 (PF) 10 (PF) 10 Commun i mg/mL (1 %) mg/mL (1 %) mg/mL (1 ty injection injection %) [facility] ta solution solution injection l Take 2.1 mL Take 2.1 mL solution Clinics by by Take 2.1 injection injection mL by route. route. injection route. lidocaine lidocaine No 2.1mL Q1D lidocaine [facility] (PF) 50 (PF) 50 (PF) 50 Commun [...] mL lidocaine 5 lidocaine 5 No lidocaine [facility] % topical % topical 5 % Commu ni patch patch topical ty patch [facility] liothyronin liothyronin No liothyroni [facility] e 5 mcg e 5 mcg ne 5 mcg Commu ni tablet tablet tablet ty [facility] mirtazapine mirtazapine No mirtazapin [facility] 15 mg 15 mg e 15 mg Communi tablet TAKE tablet TAKE tablet ty 1 TABLET BY 1 TABLET BY TAKE 1 [facility]ospita MOUTH MOUTH TABLET BY l EVERYDAY AT EVERYDAY AT MOUTH Clinics BEDTIME BEDTIME EVERYDAY AT BEDTIME nitroglycer nitroglycer No 1 nitroglyce [facility] in 0.4 mg in 0.4 mg rin 0.4 mg Communi sublingual sublingual sublingual ty tablet tablet tablet [facility]osp[facility] Place [address] 1 l tablet as tablet as tablet as Clinics needed by needed by needed by sublingual sublingual sublingual route. route. route. omeprazole omeprazole No omeprazole [facility] 20 mg 20 mg 20 mg Communi [...] ty gauge TEST gauge TEST gauge TEST [facility] TWICE A DAY TWICE A DAY TWICE [...] DAY l Clinics pantoprazol pantoprazol No pantoprazo [facility] e 40 mg e 40 mg le 40 mg Commu ni tablet,indira tablet,indira tablet,del ty yed release yed release ayed [facility] Take 1 Take 1 release l tablet BID tablet BID Take 1 C linics by mouth by mouth tablet BID by mouth phenazopyri phenazopyri No phenazopyr [facility] dine 200 mg dine 200 mg idine 200 Communi tablet TAKE tablet TAKE mg tablet ty 1 TABLET BY 1 TABLET BY TAKE 1 [facility]ospita MOUTH THREE MOUTH THREE TABLET BY l TIMES A DAY TIMES A DAY MOUTH Clinics FOR 3 DAYS FOR 3 DAYS THREE TIMES A DAY FOR 3 DAYS potassium potassium No potassium [facility] chloride ER chloride ER chloride Communi 20 mEq 20 mEq ER 20 mEq ty tablet,exte tablet,exte tablet,ext [facility]ospita nded nded ended l release(par release(par release(pa Clinics t/cryst) t/cryst) rt/cryst) TAKE 1 TAKE 1 TAKE 1 TABLET BY TABLET BY TABLET BY MOUTH EVERY MOUTH EVERY MOUTH DAY DAY EVERY DAY Santyl 250 Santyl 250 No Santyl 250 [facility] unit/gram unit/gram unit/gram [facility]i topical topical topical ty ointment ointment ointment [facility] APPLY A APPLY A APPLY A l DIONY DIONY DIONY [facility] THICK THICK THICK AMOUNT TO AMOUNT TO AMOUNT TO WOUND 3 WOUND 3 WOUND 3 TIMES A TIMES A TIMES A WEEK WEEK WEEK sotalol 160 sotalol 160 No sotalol [facility] mg tablet mg tablet 160 mg Com raz TAKE 1 TAKE 1 tablet ty TABLET BY TABLET BY TAKE 1 [facility] MOUTH TWICE MOUTH TWICE TABLET BY l A DAY A DAY MOUTH Clinics TWICE A DAY sulfamethox sulfamethox No sulfametho [facility] azole 800 azole 800 xazole 800 Communi mg-trimetho mg-trimetho mg-trimeth ty prim 160 mg prim 160 mg oprim 160 [facility] tablet TAKE tablet TAKE mg tablet l 1 TABLET BY 1 TABLET BY TAKE 1 Clinics MOUTH EVERY MOUTH EVERY TABLET BY 12 HOURS 12 HOURS MOUTH FOR 7 DAYS FOR 7 DAYS EVERY 12 HOURS FOR 7 DAYS Immunizations Ordered Immunization Filled Immunization Date Status Commen ts Source Name Name influenza, influenza, 2022-05-05 Completed [facility] high-dose, high-dose, 00:00:00 [facility] [place] Pneumococcal Pneumococcal 2022-05-05 Completed [facility] conjugate PCV20, conjugate PCV20, 00:00:00 [facility] [id number] conjugate, [id number] conjugate, Clinics adjuvant, PF adjuvant, PF influenza, influenza, 2022-05-05 Completed [facility] high-dose, high-dose, 00:00:00 [facility] [place] Pneumococcal Pneumococcal 2022-05-05 Completed [facility] conjugate PCV20, conjugate PCV20, 00:00:00 [facility] [id number] conjugate, [id number] conjugate, Clinics adjuvant, PF adjuvant, PF influenza, influenza, 2022-05-05 Completed [facility] high-dose, high-dose, 00:00:00 [facility] [place] Pneumococcal Pneumococcal 2022-05-05 Completed [facility] conjugate PCV20, conjugate PCV20, 00:00:00 [facility] [id number] conjugate, [id number] conjugate, Clinics adjuvant, PF adjuvant, PF influenza, influenza, 2022-05-05 Completed [facility] high-dose, high-dose, 00:00:00 [facility] [place] Pneumococcal Pneumococcal 2022-05-05 Completed [facility] conjugate PCV20, conjugate PCV20, 00:00:00 [facility] [id number] conjugate, [id number] conjugate, Clinics adjuvant, PF adjuvant, PF influenza, influenza, 2022-05-05 Completed [facility] high-dose, high-dose, 00:00:00 [facility] [place] Pneumococcal Pneumococcal 2022-05-05 Completed [facility] conjugate PCV20, conjugate PCV20, 00:00:00 [facility] [id number] conjugate, [id number] conjugate, Clinics adjuvant, PF adjuvant, PF influenza, influenza, 2022-05-05 Completed [facility] high-dose, high-dose, 00:00:00 [facility] [place] Pneumococcal Pneumococcal 2022-05-05 Completed [facility] conjugate PCV20, conjugate PCV20, 00:00:00 [facility] [id number] conjugate, [id number] conjugate, Clinics adjuvant, PF adjuvant, PF influenza, influenza, 2022-05-05 Completed [facility] high-dose, high-dose, 00:00:00 [facility] [place] Pneumococcal Pneumococcal 2022-05-05 Completed [facility] conjugate PCV20, conjugate PCV20, 00:00:00 [facility] [id number] conjugate, [id number] conjugate, Clinics adjuvant, PF adjuvant, PF influenza, influenza, 2022-05-05 Completed [facility] high-dose, high-dose, 00:00:00 [facility] [place] Pneumococcal Pneumococcal 2022-05-05 Completed [facility] conjugate PCV20, conjugate PCV20, 00:00:00 [facility] [id number] conjugate, [id number] conjugate, Clinics adjuvant, PF adjuvant, PF influenza, influenza, 2022-05-05 Completed [facility] high-dose, high-dose, 00:00:00 [facility] [place] Pneumococcal Pneumococcal 2022-05-05 Completed [facility] conjugate PCV20, conjugate PCV20, 00:00:00 [facility] [id number] conjugate, [id number] conjugate, Clinics adjuvant, PF adjuvant, PF COVID-19, mRNA, COVID-19, mRNA, 2022-03-19 Completed [facility] LNP-S, PF, 30 LNP-S, PF, 30 00:00:00 [facility] mcg/0.3 mL dose, mcg/0.3 mL dose, [facility] ([facility]) ([facility]) COVID-19, mRNA, COVID-19, mRNA, 2022-03-19 Completed [facility] LNP-S, PF, 30 LNP-S, PF, 30 00:00:00 [facility] mcg/0.3 mL dose, mcg/0.3 mL dose, [facility] ([facility]) ([facility]) COVID-19, mRNA, COVID-19, mRNA, 2022-03-19 Completed [facility] LNP-S, PF, 30 LNP-S, PF, 30 00:00:00 [facility] mcg/0.3 mL dose, mcg/0.3 mL dose, [facility] ([facility]) ([facility]) COVID-19, mRNA, COVID-19, mRNA, 2022-03-19 Completed [facility] LNP-S, PF, 30 LNP-S, PF, 30 00:00:00 [facility] mcg/0.3 mL dose, mcg/0.3 mL dose, [facility] ([facility]) ([facility]) COVID-19, mRNA, COVID-19, mRNA, 2022-03-19 Completed [facility] LNP-S, PF, 30 LNP-S, PF, 30 00:00:00 [facility] mcg/0.3 mL dose, mcg/0.3 mL dose, [facility] ([facility]) ([facility]) COVID-19, mRNA, COVID-19, mRNA, 2022-03-19 Completed [facility] LNP-S, PF, 30 LNP-S, PF, 30 00:00:00 [facility] y mcg/0.3 mL dose, mcg/0.3 mL dose, [facility] ([facility]) ([facility]) COVID-19, mRNA, COVID-19, mRNA, 2022-03-19 Completed [facility] LNP-S, PF, 30 LNP-S, PF, 30 00:00:00 [facility] mcg/0.3 mL dose, mcg/0.3 mL dose, [facility] ([facility]) ([facility]) COVID-19, mRNA, COVID-19, mRNA, 2022-03-19 Completed [facility] LNP-S, PF, 30 LNP-S, PF, 30 00:00:00 [facility] mcg/0.3 mL dose, mcg/0.3 mL dose, [facility] ([facility]) ([facility]) COVID-19, mRNA, COVID-19, mRNA, 2022-03-19 Completed [facility] LNP-S, PF, 30 LNP-S, PF, 30 00:00:00 [facility] mcg/0.3 mL dose, mcg/0.3 mL dose, [facility] ([facility]) ([facility]) COVID-19, mRNA, COVID-19, mRNA, 2021-09-01 Completed [facility] LNP-S, PF, 30 LNP-S, PF, 30 00:00:00 [facility] mcg/0.3 mL dose mcg/0.3 mL dose Hosp [facility] ([facility]) ([facility]) Clinics COVID-19, mRNA, COVID-19, mRNA, 2021-09-01 Completed [facility] LNP-S, PF, 30 LNP-S, PF, 30 00:00:00 [facility] mcg/0.3 mL dose mcg/0.3 mL dose [facility] ([facility]) ([facility]) Clinics COVID-19, mRNA, COVID-19, mRNA, 2021-09-01 Completed [facility] LNP-S, PF, 30 LNP-S, PF, 30 00:00:00 [facility] mcg/0.3 mL dose mcg/0.3 mL dose [facility] ([facility]) ([facility]) Clinics COVID-19, mRNA, COVID-19, mRNA, 2021-09-01 Completed [facility] LNP-S, PF, 30 LNP-S, PF, 30 00:00:00 [facility] mcg/0.3 mL dose mcg/0.3 mL dose [facility] ([facility]) ([facility]) Clinics COVID-19, mRNA, COVID-19, mRNA, 2021-09-01 Completed [facility] LNP-S, PF, 30 LNP-S, PF, 30 00:00:00 [facility] mcg/0.3 mL dose mcg/0.3 mL dose [facility] ([facility]) ([facility]) Clinics COVID-19, mRNA, COVID-19, mRNA, 2021-09-01 Completed [facility] LNP-S, PF, 30 LNP-S, PF, 30 00:00:00 [facility] mcg/0.3 mL dose mcg/0.3 mL dose [facility] ([facility]) ([facility]) Clinics COVID-19, mRNA, COVID-19, mRNA, 2021-09-01 Completed [facility] LNP-S, PF, 30 LNP-S, PF, 30 00:00:00 [facility] y mcg/0.3 mL dose mcg/0.3 mL dose [facility]osp [facility] ([facility]) ([facility]) Clinics COVID-19, mRNA, COVID-19, mRNA, 2021-09-01 Completed [facility] LNP-S, PF, 30 LNP-S, PF, 30 00:00:00 [facility] mcg/0.3 mL dose mcg/0.3 mL dose [facility]osp [facility] ([facility]) ([facility]) Clinics COVID-19, mRNA, COVID-19, mRNA, 2021-09-01 Completed [facility] LNP-S, PF, 30 LNP-S, PF, 30 00:00:00 [facility] mcg/0.3 mL dose mcg/0.3 mL dose [facility] ([facility] ([facility]) Clinics COVID-19 COVID-19 2020-11-02 Completed [facility] (SARS-COV-2) (SARS-COV-2) 00:00:00 [facility] vaccine, unspecified vaccine, [facility]osp [facility] unspecified Clinics COVID-19 COVID-19 2020-11-02 Completed [facility] (SARS-COV-2) (SARS-COV-2) 00:00:00 Community vaccine, unspecified vaccine, [facility] unspecified Clinics COVID-19 COVID-19 2020-11-02 Completed [facility] (SARS-COV-2) (SARS-COV-2) 00:00:00 Community vaccine, unspecified vaccine, [facility] unspecified Clinics COVID-19 COVID-19 2020-11-02 Completed [facility] (SARS-COV-2) (SARS-COV-2) 00:00:00 Community vaccine, unspecified vaccine, [facility] unspecified Clinics COVID-19 COVID-19 2020-11-02 Completed [facility] (SARS-COV-2) (SARS-COV-2) 00:00:00 Community vaccine, unspecified vaccine, [facility] unspecified Clinics COVID-19 COVID-19 2020-11-02 Completed [facility] (SARS-COV-2) (SARS-COV-2) 00:00:00 Community vaccine, unspecified vaccine, [facility] unspecified Clinics COVID-19 COVID-19 2020-11-02 Completed [facility] (SARS-COV-2) (SARS-COV-2) 00:00:00 Community vaccine, unspecified vaccine, [facility] unspecified Clinics COVID-19 COVID-19 2020-11-02 Completed [facility] (SARS-COV-2) (SARS-COV-2) 00:00:00 Community vaccine, unspecified vaccine, [facility] unspecified Clinics COVID-19 COVID-19 2020-11-02 Completed [facility] (SARS-COV-2) (SARS-COV-2) 00:00:00 Community vaccine, unspecified vaccine, [facility] unspecified Clinics COVID-19 COVID-19 2020-11-02 Completed [facility] (SARS-COV-2) (SARS-COV-2) 00:00:00 Community vaccine, unspecified vaccine, [facility] unspecified Clinics COVID-19 COVID-19 2020-11-02 Completed [facility] (SARS-COV-2) (SARS-COV-2) 00:00:00 Community vaccine, unspecified vaccine, [facility] unspecified Clinics COVID-19 COVID-19 2020-11-02 Completed [facility] (SARS-COV-2) (SARS-COV-2) 00:00:00 Community vaccine, unspecified vaccine, [facility] unspecified Clinics COVID-19 COVID-19 2020-11-02 Completed [facility] (SARS-COV-2) (SARS-COV-2) 00:00:00 Community vaccine, unspecified vaccine, [facility] unspecified Clinics COVID-19 COVID-19 2020-11-02 Completed [facility] (SARS-COV-2) (SARS-COV-2) 00:00:00 Community vaccine, unspecified vaccine, [facility] unspecified Clinics COVID-19 COVID-19 2020-11-02 Completed [facility] (SARS-COV-2) (SARS-COV-2) 00:00:00 Community vaccine, unspecified vaccine, [facility] unspecified Clinics COVID-19 COVID-19 2020-11-02 Completed [facility] (SARS-COV-2) (SARS-COV-2) 00:00:00 Community vaccine, unspecified vaccine, [facility] unspecified Clinics COVID-19 COVID-19 2020-11-02 Completed [facility] (SARS-COV-2) (SARS-COV-2) 00:00:00 Community vaccine, unspecified vaccine, [facility] unspecified Clinics COVID-19 COVID-19 2020-11-02 Completed [facility] (SARS-COV-2) (SARS-COV-2) 00:00:00 Community vaccine, unspecified vaccine, [facility] unspecified Clinics COVID-19 COVID-19 2020-11-02 Completed [facility] (SARS-COV-2) (SARS-COV-2) 00:00:00 Community vaccine, unspecified vaccine, [facility] unspecified Clinics COVID-19 COVID-19 2020-11-02 Completed [facility] (SARS-COV-2) (SARS-COV-2) 00:00:00 Community vaccine, unspecified vaccine, [facility] unspecified Clinics COVID-19 COVID-19 2020-11-02 Completed [facility] (SARS-COV-2) (SARS-COV-2) 00:00:00 Community vaccine, unspecified vaccine, [facility] unspecified Clinics COVID-19 COVID-19 2020-11-02 Completed [facility] (SARS-COV-2) (SARS-COV-2) 00:00:00 [facility] vaccine, unspecified vaccine, [facility] unspecified Clinics SARS-COV-2 COVID-19 2020-10-25 Completed [facility] of MODERNA VACCINE 00:00:00 [facility] SARS-COV-2 COVID-19 2020-10-25 Completed [facility] rs[facility] of MODERNA VACCINE 00:00:00 [facility] COVID-19 COVID-19 2020-09-27 Completed [facility] (SARS-COV-2) (SARS-COV-2) 00:00:00 [facility] vaccine, unspecified vaccine, [facility] unspecified Clinics COVID-19 COVID-19 2020-09-27 Completed [facility] (SARS-COV-2) (SARS-COV-2) 00:00:00 [facility] vaccine, unspecified vaccine, [facility] unspecified Clinics COVID-19 COVID-19 2020-09-27 Completed [facility] (SARS-COV-2) (SARS-COV-2) 00:00:00 Community vaccine, unspecified vaccine, [facility] unspecified Clinics COVID-19 COVID-19 2020-09-27 Completed [facility] (SARS-COV-2) (SARS-COV-2) 00:00:00 [facility] vaccine, unspecified vaccine, [facility] unspecified Clinics COVID-19 COVID-19 2020-09-27 Completed [facility] (SARS-COV-2) (SARS-COV-2) 00:00:00 Community vaccine, unspecified vaccine, [facility] unspecified Clinics COVID-19 COVID-19 2020-09-27 Completed [facility] (SARS-COV-2) (SARS-COV-2) 00:00:00 [facility] vaccine, unspecified vaccine, [facility] unspecified Clinics COVID-19 COVID-19 2020-09-27 Completed [facility] (SARS-COV-2) (SARS-COV-2) 00:00:00 [facility] vaccine, unspecified vaccine, [facility] unspecified Clinics COVID-19 COVID-19 2020-09-27 Completed [facility] (SARS-COV-2) (SARS-COV-2) 00:00:00 [facility] vaccine, unspecified vaccine, [facility] unspecified Clinics COVID-19 COVID-19 2020-09-27 Completed [facility] (SARS-COV-2) (SARS-COV-2) 00:00:00 Community vaccine, unspecified vaccine, [facility] unspecified Clinics COVID-19 COVID-19 2020-09-27 Completed [facility] (SARS-COV-2) (SARS-COV-2) 00:00:00 Community vaccine, unspecified vaccine, [facility] unspecified Clinics COVID-19 COVID-19 2020-09-27 Completed [facility] (SARS-COV-2) (SARS-COV-2) 00:00:00 Community vaccine, unspecified vaccine, [facility] unspecified Clinics COVID-19 COVID-19 2020-09-27 Completed [facility] (SARS-COV-2) (SARS-COV-2) 00:00:00 Community vaccine, unspecified vaccine, [facility] unspecified Clinics COVID-19 COVID-19 2020-09-27 Completed [facility] (SARS-COV-2) (SARS-COV-2) 00:00:00 Community vaccine, unspecified vaccine, [facility] unspecified Clinics COVID-19 COVID-19 2020-09-27 Completed [facility] (SARS-COV-2) (SARS-COV-2) 00:00:00 Community vaccine, unspecified vaccine, [facility] unspecified Clinics COVID-19 COVID-19 2020-09-27 Completed [facility] (SARS-COV-2) (SARS-COV-2) 00:00:00 Community vaccine, unspecified vaccine, [facility] unspecified Clinics COVID-19 COVID-19 2020-09-27 Completed [facility] (SARS-COV-2) (SARS-COV-2) 00:00:00 Community vaccine, unspecified vaccine, [facility] unspecified Clinics COVID-19 COVID-19 2020-09-27 Completed [facility] (SARS-COV-2) (SARS-COV-2) 00:00:00 Community vaccine, unspecified vaccine, [facility] unspecified Clinics COVID-19 COVID-19 2020-09-27 Completed [facility] (SARS-COV-2) (SARS-COV-2) 00:00:00 Community vaccine, unspecified vaccine, [facility] unspecified Clinics COVID-19 COVID-19 2020-09-27 Completed [facility] (SARS-COV-2) (SARS-COV-2) 00:00:00 Community vaccine, unspecified vaccine, [facility] unspecified Clinics COVID-19 COVID-19 2020-09-27 Completed [facility] (SARS-COV-2) (SARS-COV-2) 00:00:00 Community vaccine, unspecified vaccine, [facility] unspecified Clinics COVID-19 COVID-19 2020-09-27 Completed [facility] (SARS-COV-2) (SARS-COV-2) 00:00:00 [facility] vaccine, unspecified vaccine, [facility] unspecified Clinics COVID-19 COVID-19 2020-09-27 Completed [facility] (SARS-COV-2) (SARS-COV-2) 00:00:00 Community vaccine, unspecified vaccine, [facility] unspecified Clinics SARS-COV-2 COVID-19 2020-09-27 Completed [facility] MODERNA VACCINE 00:00:00 [facility] SARS-COV-2 COVID-19 2020-09-27 Completed [facility] rs[facility] of MODERNA VACCINE 00[facility]00:00 [facility] influenza, influenza, 2020-05-07 Completed [facility] injectable, injectable, 00[facility]00[facility], [facility]-07 Completed [facility] injectable, injectable, 00:00:00 [facility] quadrivalent quadrivalent [facility] influenza, influenza, 2020-05-07 Completed [facility] injectable, injectable, 00:00:00 [facility] quadrivalent quadrivalent [facility] influenza, influenza, 2020-05-07 Completed [facility] injectable, injectable, 00:00:00 [facility] quadrivalent quadrivalent [facility] influenza, influenza, 2020-05-07 Completed [facility] injectable, injectable, 00:00:00 [facility] quadrivalent [facility] influenza, influenza, 2020-05-07 Completed [facility] injectable, injectable, 00:00:00 [facility], 2020-05-07 Completed [facility] injectable, injectable, 00:00:00 [facility] [place] influenza, influenza, 2020-05-07 Completed [facility] injectable, injectable, 00:00:00 [facility] [place] influenza, influenza, 2020-05-07 Completed [facility] injectable, injectable, 00:00:00 [facility] [place] influenza, influenza, 2020-05-07 Completed [facility] injectable, injectable, 00:00:00 [facility] [place] influenza, influenza, 2020-05-07 Completed [facility] injectable, injectable, 00:00:00 [facility] [place] influenza, influenza, 2020-05-07 Completed [facility] injectable, injectable, 00:00:00 [facility] [place] influenza, influenza, 2020-05-07 Completed [facility] injectable, injectable, 00:00:00 [facility] [place] influenza, influenza, 2020-05-07 Completed [facility] injectable, injectable, 00:00:00 [facility] [place] influenza, influenza, 2020-05-07 Completed [facility] injectable, injectable, 00:00:00 [facility] [place] influenza, influenza, 2020-05-07 Completed [facility] injectable, injectable, 00:00:00 [facility] [place] influenza, influenza, 2020-05-07 Completed [facility] injectable, injectable, 00:00:00 [facility] [place] influenza, influenza, 2020-05-07 Completed [facility] injectable, injectable, 00:00:00 [facility] [place] influenza, influenza, 2020-05-07 Completed [facility] injectable, injectable, 00:00:00 [facility] [place] influenza, influenza, 2020-05-07 Completed [facility] injectable, injectable, 00:00:00 [facility] [place] influenza, influenza, 2020-05-07 Completed [facility] injectable, injectable, 00:00:00 [facility] [place] influenza, influenza, 2020-05-07 Completed [facility] injectable, injectable, 00:00:00 [facility] [place] influenza, influenza, 2020-05-07 Completed [facility] injectable, injectable, 00:00:00 [facility] [place] influenza, influenza, 2020-05-07 Completed [facility] injectable, injectable, 00:00:00 [facility] [place] influenza, influenza, 2020-05-07 Completed [facility] injectable, injectable, 00:00:00 [facility] [place] influenza, influenza, 2020-05-07 Completed [facility] injectable, injectable, 00:00:00 [facility] [place] influenza, influenza, 2020-05-07 Completed [facility] injectable, injectable, 00:00:00 [facility] [place] influenza, influenza, 2020-05-07 Completed [facility] injectable, injectable, 00:00:00 [facility] [place] influenza, influenza, 2020-05-07 Completed [facility] injectable, injectable, 00:00:00 [facility] [place] influenza, influenza, 2020-05-07 Completed [facility] injectable, injectable, 00:00:00 [facility] [place] influenza, influenza, 2020-05-07 Completed [facility] injectable, injectable, 00:00:00 [facility] [place] influenza, influenza, 2020-05-07 Completed [facility] injectable, injectable, 00:00:00 [facility] [place] influenza, influenza, 2020-05-07 Completed [facility] injectable, injectable, 00:00:00 [facility] [place] influenza, influenza, 2020-05-07 Completed [facility] injectable, injectable, 00:00:00 [facility] [place] Influenza Virus 2020-05-07 Completed [facility]00 [facility] ica Multi-dose 6+ [place] Influenza Virus 2020-05-07 Completed [facility] Vacc[facility] IM 00:00:00 [facility] ica Multi-dose 6+ [place] influenza, influenza, 2019-07-10 Completed [facility] injectable, injectable, 00:00:00 [facility] influenza, influenza, 2019-07-10 Completed [facility] injectable, injectable, 00:00:00 [facility] [place] influenza, influenza, 2019-07-10 Completed [facility] injectable, injectable, 00:00:00 [facility] [place] influenza, influenza, 2019-07-10 Completed [facility] injectable, injectable, 00:00:00 [facility] [place] influenza, influenza, 2019-07-10 Completed [facility] injectable, injectable, 00:00:00 [facility] [place] influenza, influenza, 2019-07-10 Completed [facility] injectable, injectable, 00:00:00 [facility] [place] influenza, influenza, 2019-07-10 Completed [facility] injectable, injectable, 00:00:00 [facility] [place] influenza, influenza, 2019-07-10 Completed [facility] injectable, injectable, 00:00:00 [facility] [place] influenza, influenza, 2019-07-10 Completed [facility] injectable, injectable, 00:00:00 [facility] [place] influenza, influenza, 2019-07-10 Completed [facility] injectable, injectable, 00:00:00 [facility] [place] influenza, influenza, 2019-07-10 Completed [facility] injectable, injectable, 00:00:00 [facility] [place] influenza, influenza, 2019-07-10 Completed [facility] injectable, injectable, 00:00:00 [facility] [place] influenza, influenza, 2019-07-10 Completed [facility] injectable, injectable, 00:00:00 [facility] [place] influenza, influenza, 2019-07-10 Completed [facility] injectable, injectable, 00:00:00 [facility] [place] influenza, influenza, 2019-07-10 Completed [facility] injectable, injectable, 00:00:00 [facility] [place] influenza, influenza, 2019-07-10 Completed [facility] injectable, injectable, 00:00:00 [facility] [place] influenza, influenza, 2019-07-10 Completed [facility] injectable, injectable, 00:00:00 [facility] [place] influenza, influenza, 2019-07-10 Completed [facility] injectable, injectable, 00:00:00 [facility] [place] influenza, influenza, 2019-07-10 Completed [facility] injectable, injectable, 00:00:00 [facility] [place] influenza, influenza, 2019-07-10 Completed [facility] injectable, injectable, 00:00:00 [facility] [place] influenza, influenza, 2019-07-10 Completed [facility] injectable, injectable, 00:00:00 [facility] [place] influenza, influenza, 2019-07-10 Completed [facility] injectable, injectable, 00:00:00 [facility] [place] influenza, influenza, 2019-07-10 Completed [facility] injectable, injectable, 00:00:00 [facility] [place] influenza, influenza, 2019-07-10 Completed [facility] injectable, injectable, 00:00:00 [facility] influenza, influenza, 2019-07-10 Completed [facility] injectable, injectable, 00:00:00 [facility] [place] influenza, influenza, 2019-07-10 Completed [facility] injectable, injectable, 00:00:00 [facility] [place] influenza, influenza, 2019-07-10 Completed [facility] injectable, injectable, 00:00:00 [facility] [place] influenza, influenza, 2019-07-10 Completed [facility] injectable, injectable, 00:00:00 [facility] [place] influenza, influenza, 2019-07-10 Completed [facility] inject[facility], injectable, 00:00:00 [facility] [place] influenza, influenza, 2019-07-10 Completed [facility] inject[facility], injectable, 00:00:00 [facility] [place] influenza, influenza, 2019-07-10 Completed [facility] injectable, injectable, 00:00:00 [facility] [place] influenza, influenza, 2019-07-10 Completed [facility] injectable, injectable, 00:00:00 [facility] [place] influenza, influenza, 2019-07-10 Completed [facility] injectable, injectable, 00:00:00 [facility] [place] influenza, influenza, 2019-07-10 Completed [facility] inject[facility], injectable, 00:00:00 [facility] [place] Influenza Virus 2019-07-10 Completed [facility]00 [facility] ical Multi-dose 6+ [place] [facility] Influenza Virus 2019-07-10 Completed [facility] 00:[facility]:00 [facility] ical Multi-dose 6+ [place] [facility] influenza, influenza, Unknown Completed [facility] high-dose, high-dose, [facility] [place] Pneumococcal Pneumococcal Unknown Completed [facility] conjugate PCV20, conjugate PCV20, Co mmunity polysaccharide polysaccharide Hospit al [id number] conjugate, [id number] conjugate, Clinics adjuvant, PF adjuvant, PF COVID-19, mRNA, COVID-19, mRNA, Unknown Completed [facility] LNP-S, PF, 30 LNP-S, PF, 30 Communit y mcg/0.3 mL dose, mcg/0.3 mL dose, Ho spital everette-sucrose everette-sucrose Clinics ([facility]) ([facility]) COVID-19, mRNA, COVID-19, mRNA, Unknown Completed [facility] LNP-S, PF, 30 LNP-S, PF, 30 Communit y mcg/0.3 mL dose mcg/0.3 mL dose Hosp ital ([facility]) ([facility]) Clinics COVID-19 COVID-19 Unknown Completed [facility] (SARS-COV-2) (SARS-COV-2) Community vaccine, unspecified vaccine, Hosp ital unspecified Clinics COVID-19 COVID-19 Unknown Completed [facility] (SARS-COV-2) (SARS-COV-2) Community vaccine, unspecified vaccine, Hosp ital unspecified Clinics influenza, influenza, Unknown Completed [facility] injectable, injectable, Community quadrivalent quadrivalent Hospital Clinics influenza, influenza, Unknown Completed [facility] injectable, injectable, Community quadrivalent quadrivalent Hospital Clinics Vital Signs Vital Name Observation Time Observation Value Comments Source Height 2023-05-30 00:00:00 64 [in_i] [facility] s BMI (Body Mass 2023-05-30 00:00:00 24.7 kg/m2 [facility]) [facility] s BP Systolic 2023-05-30 00:00:00 114 mm[Hg] [facility] s BP Diastolic 2023-05-30 00:00:00 72 mm[Hg] [facility] s Body Weight 2023-05-30 00:00:00 2304 [oz_av] [facility] s BP Systolic 2023-05-02 00:00:00 138 mm[Hg] [facility] s Height 2023-05-02 00:00:00 64 [in_i] [facility] s BP Diastolic 2023-05-02 00:00:00 70 mm[Hg] [facility] s BMI (Body Mass 2023-05-02 00:00:00 24.9 kg/m2 [facility]) [facility] s Body Weight 2023-05-02 00:00:00 2320 [oz_av] [facility] s BP Diastolic 2023-04-01 00:00:00 68 mm[Hg] [facility] s Height 2023-04-01 00:00:00 64 [in_i] [facility] s BP Systolic 2023-04-01 00:00:00 132 mm[Hg] [facility] s BP Diastolic 2023-03-29 00:00:00 68 mm[Hg] [facility] s Height 2023-03-29 00:00:00 64 [in_i] [facility] s BP Systolic 2023-03-29 00:00:00 120 mm[Hg] [facility] s BP Diastolic 2023-03-18 00:00:00 72 mm[Hg] [facility] s Height 2023-03-18 00:00:00 64 [in_i] [facility] s BP Systolic 2023-03-18 00:00:00 124 mm[Hg] [facility] s BP Diastolic 2023-03-10 00:00:00 74 mm[Hg] [facility] s Height 2023-03-10 00:00:00 64 [in_i] [facility] s BP Systolic 2023-03-10 00:00:00 120 mm[Hg] [facility] s BP Diastolic 2023-02-25 00:00:00 70 mm[Hg] [facility] s Height 2023-02-25 00:00:00 64 [in_i] [facility] s BMI (Body Mass 2023-02-25 00:00:00 24.4 kg/m2 [facility] s BP Systolic 2023-02-25 00:00:00 112 mm[Hg] [facility] Body Weight 2023-02-25 00:00:00 2272 [oz_av] [facility] s Height 2022-12-06 00:00:00 64 [in_i] [facility] s BP Diastolic 2022-11-23 00:00:00 77 mm[Hg] [facility] s Height 2022-11-23 00:00:00 64 [in_i] [facility] s BMI (Body Mass 2022-11-23 00:00:00 29.9 kg/m2 [facility]) [facility] s BP Systolic 2022-11-23 00:00:00 134 mm[Hg] [facility] s Body Weight 2022-11-23 00:00:00 2784 [oz_av] [facility] s BP Diastolic 2022-09-14 00:00:00 72 mm[Hg] [facility] s Height 2022-09-14 00:00:00 64 [in_i] [facility] s BP Systolic 2022-09-14 00:00:00 130 mm[Hg] [facility] s BP Diastolic 2022-02-16 00:00:00 70 mm[Hg] [facility] s Height 2022-02-16 00:00:00 64 [in_i] [facility] s BMI (Body Mass 2022-02-16 00:00:00 29.5 kg/m2 [facility]) [facility] s BP Systolic 2022-02-16 00:00:00 108 mm[Hg] [facility] s Body Weight 2022-02-16 00:00:00 2752 [oz_av] [facility] s Height 2021-11-17 00:00:00 64 [in_i] [facility] s Height 2021-11-10 00:00:00 64 [in_i] [facility] s Height 2021-11-09 00:00:00 64 [in_i] [facility] s Height 2021-11-06 00:00:00 64 [in_i] [facility] Height 2021-11-03 00:00:00 64 [in_i] [facility] s Height 2021-11-02 00:00:00 64 [in_i] [facility] s BP Diastolic 2021-10-27 00:00:00 70 mm[Hg] [facility] s Height 2021-10-27 00:00:00 64 [in_i] [facility] s BP Systolic 2021-10-27 00:00:00 138 mm[Hg] [facility] s Height 2021-10-01 00:00:00 64 [in_i] [facility] s BP Diastolic 2021-09-01 00:00:00 70 mm[Hg] [facility] s Height 2021-09-01 00:00:00 64 [in_i] [facility] s BMI (Body Mass 2021-09-01 00:00:00 28.3 kg/m2 [facility]) [facility] s BP Systolic 2021-09-01 00:00:00 124 mm[Hg] [facility] s Body Weight 2021-09-01 00:00:00 2640 [oz_av] [facility] s BP Diastolic 2021-07-02 00:00:00 74 mm[Hg] [facility] s Height 2021-07-02 00:00:00 64 [in_i] [facility] s BMI (Body Mass 2021-07-02 00:00:00 29.4 kg/m2 [facility]) [facility] s BP Systolic 2021-07-02 00:00:00 120 mm[Hg] [facility] s Body Weight 2021-07-02 00:00:00 2736 [oz_av] [facility] s BP Diastolic 2021-04-13 00:00:00 70 mm[Hg] [facility] s Height 2021-04-13 00:00:00 64 [in_i] [facility] s BMI (Body Mass 2021-04-13 00:00:00 28.3 kg/m2 [facility] s BP Systolic 2021-04-13 00:00:00 122 mm[Hg] [facility] s Body Weight 2021-04-13 00:00:00 2640 [oz_av] [facility] s BP Diastolic 2021-04-06 00:00:00 84 mm[Hg] [facility] s Height 2021-04-06 00:00:00 64 [in_i] [facility] s BMI (Body Mass 2021-04-06 00:00:00 28.5 kg/m2 [facility]) [facility] s BP Systolic 2021-04-06 00:00:00 138 mm[Hg] [facility] s Body Weight 2021-04-06 00:00:00 2656 [oz_av] [facility] s BP Diastolic 2021-03-20 00:00:00 88 mm[Hg] [facility] s Height 2021-03-20 00:00:00 64 [in_i] [facility] s BMI (Body Mass 2021-03-20 00:00:00 28.3 kg/m2 [facility] s BP Systolic 2021-03-20 00:00:00 144 mm[Hg] [facility] s Body Weight 2021-03-20 00:00:00 2640 [oz_av] [facility] s BP Diastolic 2020-12-19 00:00:00 80 mm[Hg] [facility] s Height 2020-12-19 00:00:00 64 [in_i] [facility] s BMI (Body Mass 2020-12-19 00:00:00 28.5 kg/m2 [facility] s BP Systolic 2020-12-19 00:00:00 138 mm[Hg] [facility] Body Weight 2020-12-19 00:00:00 2656 [oz_av] [facility] s BP Diastolic 2020-11-17 00:00:00 78 mm[Hg] [facility] s Height 2020-11-17 00:00:00 64 [in_i] [facility] s BP Systolic 2020-11-17 00:00:00 140 mm[Hg] [facility] s BP Diastolic 2020-11-10 00:00:00 72 mm[Hg] [facility] s Height 2020-11-10 00:00:00 64 [in_i] [facility] s BMI (Body Mass 2020-11-10 00:00:00 29.2 kg/m2 [facility] s BP Systolic 2020-11-10 00:00:00 110 mm[Hg] [facility] s Body Weight 2020-11-10 00:00:00 2720 [oz_av] [facility] s BP Diastolic 2020-10-27 00:00:00 70 mm[Hg] [facility] s Height 2020-10-27 00:00:00 64 [in_i] [facility] s BMI (Body Mass 2020-10-27 00:00:00 31.9 kg/m2 [facility]) [facility] s BP Systolic 2020-10-27 00:00:00 122 mm[Hg] [facility] s Body Weight 2020-10-27 00:00:00 2976 [oz_av] [facility] s BP Diastolic 2020-10-17 00:00:00 74 mm[Hg] [facility] s Height 2020-10-17 00:00:00 64 [in_i] [facility] s BMI (Body Mass 2020-10-17 00:00:00 28.8 kg/m2 [facility]) [facility] s BP Systolic 2020-10-17 00:00:00 144 mm[Hg] [facility] s Body Weight 2020-10-17 00:00:00 2688 [oz_av] [facility] Height 2020-09-23 00:00:00 64 [in_i] [facility] s BP Diastolic 2020-09-08 00:00:00 82 mm[Hg] [facility] Height 2020-09-08 00:00:00 64 [in_i] [facility] s BMI (Body Mass 2020-09-08 00:00:00 29.7 kg/m2 [facility]) [facility] s BP Systolic 2020-09-08 00:00:00 158 mm[Hg] [facility] s Body Weight 2020-09-08 00:00:00 2768 [oz_av] [facility] Body height 2022-05-17 15:02:00 162.6 cm [facility] Body weight 2022-05-17 15:02:00 77.565 kg [facility] BMI 2022-05-17 15:02:00 29.35 kg/m2 [facility] Systolic blood 2021-03-13 20:52:00 132 mm[Hg] Univer sity of pressure [facility] Diastolic blood 2021-03-13 20:52:00 69 mm[Hg] Unive rsity of pressure [facility] Heart rate 2021-03-13 20:52:00 63 /min [facility] Body temperature 2021-03-13 20:52:00 [facility] Res[facility] rate 2021-03-13 20:52:00 18 /[facility] Oxygen saturation in 2021-03-13 20:52:00 97 /min [facility] Arterial blood by [facility] Pulse oximetry Branch Body height 2021-03-11 07:30:00 162.6 cm [facility] Body weight 2021-03-11 07:30:00 76 kg bed scale [facility] BMI 2021-03-11 07:30:00 28.76 kg/m2 [facility] Procedures Procedure Date / Time Performing Clinician Source Performed MAMMO, diagnostic, 2023-05-17 00:00:00 [employer] digital, bilateral Hospital Clin ics bone density 2023-05-16 00:00:00 [facility] Cholecystectomy 2022-12-14 00:00:00 [facility] ETHMOIDECTOMY, TOTAL, VIA 2022-07-05 16:30:00 Marysol Nguyen [facility] EXTRANASAL APPROACH Hip Pin for Fixation of 2022-05-18 00:00:00 [facility] BRAIN W WO CONTRAST 2022-05-17 16:05:47 Marysol Nguyen [facility] AUTHORIZATION FOR RELEASE 2021-12-30 05:01:00 Doctor Unassigned, [facility] MAMMO, diagnostic, 2021-10-26 00:00:00 [employer] digital, bilateral Hospital [facility] ics Tibial Arthroscopy/surgery 2021-09-22 00:00:00 [facility] EXTERNAL PROVIDER RECORDS 2021-03-24 05:01:00 Doctor Unassigned, [facility] POCT GLUCOSE (AUTOMATED) 2021-03-13 16:51:00 Josy Edge [facility] POCT GLUCOSE (AUTOMATED) 2021-03-13 13:05:00 Josy Edge [facility] CBC WITHOUT DIFF 2021-03-13 11:24:00 Pamela Terry [facility] BASIC METABOLIC PANEL (NA, 2021-03-13 11:24:00 Pamela Terry [facility] K, CL, CO2, GLUCOSE, BUN, Medica l Branch CREATININE, CA) POCT GLUCOSE (AUTOMATED) 2021-03-13 05:07:00 Josy Edge [facility] POCT GLUCOSE (AUTOMATED) 2021-03-12 23:47:00 Josy Edge [facility] CBC WITHOUT DIFF 2021-03-12 23:30:00 Harrison [facility] POCT GLUCOSE (AUTOMATED) 2021-03-12 20:23:00 Josy Edge [facility] POCT GLUCOSE (AUTOMATED) 2021-03-12 19:28:00 Josy Edge [facility] IR IVC FILTER INSERTION 2021-03-12 18:43:35 Alvaro Shields [facility] POCT GLUCOSE (AUTOMATED) 2021-03-12 13:12:00 Josy Edge [facility] BASIC METABOLIC PANEL (NA, 2021-03-12 10:25:00 Harrison [facility] K, CL, CO2, GLUCOSE, BUN, Medica l Branch CREATININE, CA) CBC WITH DIFF 2021-03-12 10:25:00 Harrison [facility] MAGNESIUM 2021-03-12 10:25:00 Harrison [facility] ACTIVATED PARTIAL THRMPLAS 2021-03-12 05:01:00 Alvaro Shields [facility] POCT GLUCOSE (AUTOMATED) 2021-03-12 01:11:00 Josy Edge [facility] POCT GLUCOSE (AUTOMATED) 2021-03-11 21:16:00 Josy Edge [facility] BASIC METABOLIC PANEL (NA, 2021-03-11 20:47:00 Harrison Pamela [facility] K, CL, CO2, GLUCOSE, BUN, Medica l Branch CREATININE, CA) ACTIVATED PARTIAL THRMPLAS 2021-03-11 18:53:00 Alvaro Shields [facility] US LOWER EXTREMITY VEIN 2021-03-11 17:18:10 Alvaro Shields [facility] WITH COMPRESSION BILATERAL Medic al Branch (ONLY FOR RULE OUT DVT) CT ABDOMEN PELVIS W 2021-03-11 17:16:28 Alvaro Shields [facility] CONTRAST [facility] POCT GLUCOSE (AUTOMATED) 2021-03-11 16:50:00 Josy Edge [facility] POCT GLUCOSE (AUTOMATED) 2021-03-11 14:31:00 Kunal Ricjayna Youssef [facility] COVID-19 (ID NOW RAPID 2021-03-11 13:18:00 [facility] Shield[facility] TESTING) Medical Branch LAB ONLY COVID 2021-03-11 13:18:00 Alvaro Shields [facility] INTERPRETATION [facility] CBC WITH DIFF 2021-03-11 13:17:00 Alvaro Shields [facility] FREE T4 2021-03-11 13:17:00 Alvaro Shields [facility] PROTHROMBIN TIME / INR 2021-03-11 13:17:00 Alvaro Shields [facility] IRON PANEL 2021-03-11 13:17:00 Alvaro Shields [facility] COMP. METABOLIC PANEL 2021-03-11 13:15:00 Alvaor Shields [facility] ([id number]) Medical Branch MAGNESIUM 2021-03-11 13:15:00 Alvaro Shields [facility] FREE T3 2021-03-11 13:15:00 Alvaro Shields [facility] FERRITIN SERUM 2021-03-11 13:15:00 Alvaro Shields [facility] ACTIVATED PARTIAL THRMPLAS 2021-03-11 10:38:00 Alvaro Shields [facility] HOSPITAL ADMISSION 2021-03-11 05:01:00 Doctor Unassigned, [facility] Rafael Gonzalez [facility] DEXA 2020-12-19 00:00:00 [facility] MRI, lumbar spine, w/o 2020-10-27 00:00:00 [facility] XR, lumbar spine 2020-10-17 00:00:00 [facility] Hypophysectomy [facility] Plan of Care Planned Activity Planned Date Details Comments Source Future Scheduled Test 2023-07-09 65+ PNEUMOCOCCAL [facility] 10:17:41 VACCINE (1 - PCV) [code = 65+ PNEUMOCOCCAL VACCINE (1 - PCV)] Future Scheduled Test 2023-07-09 COVID-19 VACCINE ([address] [place] [address] 10:17:41 ) [code = COVID-19 VACCINE ( - 2023-24 season)] Future Scheduled Test 2023-07-09 INFLUENZA VACCINE [facility] 10:17:41 (#1) [code = INFLUENZA VACCINE (#1)] Future Scheduled Test 2023-07-09 SHINGLES VACCINES (1 [facility] 10:17:41 of 2) [code = SHINGLES VACCINES (1 of 2)] Future Scheduled Test 2023-07-09 SHINGLES VACCINES (1 [facility] 10:17:41 of 2) [code = SHINGLES VACCINES (1 of 2)] Future Scheduled Test 2023-07-09 65+ PNEUMOCOCCAL [facility] 10:17:41 VACCINE (1 - PCV) [code = 65+ PNEUMOCOCCAL VACCINE (1 - PCV)] Future Scheduled Test 2023-07-09 COVID-19 VACCINE ([address] [place] [address] 10:17:41 season) [code = COVID-19 VACCINE ( - season)] Future Scheduled Test 2023-07-09 INFLUENZA VACCINE [facility] 10:17:41 (#1) [code = INFLUENZA VACCINE (#1)] Diagnostic Test 2023-05-02 urinalysis, dipstick [facility] Pending 00:00:00 [code = urinalysis, [facility] dipstick] Future Scheduled Test 2023-04-07 SHINGLES VACCINES (1 [facility] 08:24:00 of 2) [code = SHINGLES VACCINES (1 of 2)] Future Scheduled Test 2023-04-07 65+ PNEUMOCOCCAL [facility] 08:24:00 VACCINE (1 - PCV) [code = 65+ PNEUMOCOCCAL VACCINE (1 - PCV)] Future Scheduled Test 2023-04-07 COVID-19 VACCINE ([address] [place] [address] 08:24:00 Moderna series) [code = COVID-19 VACCINE (4 - Moderna series)] Future Scheduled Test 2023-04-07 INFLUENZA VACCINE [facility] 08:24:00 [code = INFLUENZA VACCINE] Future Scheduled Test 2023-01-07 SHINGLES VACCINES (1 [facility] 16:34:29 of 2) [code = SHINGLES VACCINES (1 of 2)] Future Scheduled Test 2023-01-07 65+ PNEUMOCOCCAL [facility] 16:34:29 VACCINE (1 - PCV) [code = 65+ PNEUMOCOCCAL VACCINE (1 - PCV)] Future Scheduled Test 2023-01-07 COVID-19 VACCINE (4 - [facility] 16:34:29 Booster for Moderna series) [code = COVID-19 VACCINE (4 - Booster for Moderna series)] Future Scheduled Test 2023-01-07 INFLUENZA VACCINE [facility] 16:34:29 [code = INFLUENZA VACCINE] Future Scheduled Test 2022-05-17 HEPATITIS B VACCINES [facility] 10:30:12 (1 of 3 - 3-dose series) [code = HEPATITIS B VACCINES (1 of 3 - 3-dose series)] Future Scheduled Test 2022-05-17 SHINGLES VACCINES (1 [facility] 10:30:12 of 2) [code = SHINGLES VACCINES (1 of 2)] Future Scheduled Test 2022-05-17 65+ PNEUMOCOCCAL [facility] 10:30:12 VACCINE (1 - PCV) [code = 65+ PNEUMOCOCCAL VACCINE (1 - PCV)] Future Scheduled Test 2022-05-17 COVID-19 VACCINE (4 - [facility] 10:30:12 Booster for Moderna series) [code = COVID-19 VACCINE (4 - Booster for Moderna series)] Future Scheduled Test 2022-05-17 INFLUENZA VACCINE [facility] 10:30:12 [code = INFLUENZA VACCINE] Future [...] 00:00:00 (1 of 1 - Medical Center [id number] PCV13) [code = PNEUMOCOCCAL 65+ YRS (1 of 1 - [id number] PCV13)] Future Scheduled Test 2003 PNEUMOCOCCAL 65+ YRS [facility] 00:00:00 (1 of 1 - Medical Center [id number] PCV13) [code = PNEUMOCOCCAL 65+ YRS (1 of 1 - [id number] PCV13)] Future Scheduled Test 1988 SHINGLES VACCINES [...] Future Appointment 2023-08-02 Lam Card, [address] [facility] 08:30:00 [address]asa; [address], [place] [address] [facility] s Encounters Start End Encounter Admission Attending Care Care Encounter Source Date/Time Date/Time Type Type Clinicians Facility Department ID 2023-01-19 Outpatient [facility] [id number] Common 09:13:00 [id number] [facility] 2022-10-14 Outpatient [facility] [id number] [place] 09:18:02 [id number] [facility] 2022-10-06 Outpatient [facility] [id number] [place] 14:35:41 [id number] [facility] 2022-10-01 Outpatient 3 COLLEEN BAKER [facility] [id number] [facility] 15:41:42 AVIS [id number] [facility] 2022-10-01 Outpatient 3 [id number] E[facility] CRD [id number] [facility] 12:55:40 0127 [facility] [place] [facility] 2022-09-30 Outpatient 3 [place] BAKER [place] [id number] [facility] 13:27:29 AVIS [id number] [facility] [place] 2022-09-30 Outpatient 3 [id number] E[facility] REF [id number] [facility] 06:52:54 [id number] [facility] [place] 2022-09-29 Outpatient 3 [id number] ENC[facility] REF [id number] [facility] 15:07:23 [id number] [facility] [place] 2022-09-27 Outpatient [facility] [id number] [place] 12:32:54 [id number] Health 2022-06-04 Outpatient [place] [id number] Common 08:13:00 [id number] [facility] 2022-05-31 Outpatient [place] [id number] Common 11:13:01 [id number] [facility] 2022-05-24 Outpatient [place] [id number] Common 11:47:00 [id number] [facility] 2021-10-05 Inpatient SONG Hall, [id number] [facility] 11:30:00 Kemar 50 [facility] 2021-09-30 [facility] [id number] Common 11:17:12 Chel [id number] [facility] 2021-09-30 Outpatient Leeanna [facility] [id number] Common 11:13:55 Dany Carey [facility] 2021-03-11 Inpatient U KUNAL, [facility] [id number] [facility] 02:03:00 JOSY curtis [facility] [facility] 2023-05-30 2023-05-30 Outpatient JASON [facility] [id number] [place] 00:00:00 00:00:00 925 [facility] 2023-05-30 2023-05-30 Dany [facility] [place] 00:00:00 00:00:00 [facility], Hospital - ty DO: [address] Hospit a [facility] G, H[place]PITAL [place], [address] LEEANNA , Ph. 2023-05-02 2023-05-02 Dany [facility] [place] [id number] [place] 00:00:00 00:00:00 [facility] - ty DO: [address] Hospit a [facility] G, [place], [address] LEEANNA , Ph. 2023-04-21 2023-04-21 Outpatient ERICKSON_R [facility] [id number] [place] 00:00:00 00:00:00 828 [facility] 2023-04-01 2023-04-01 Outpatient ERICKSON_R [facility] [id number] [place] 00:00:00 00:00:00 728 [facility] 2023-04-01 2023-04-01 [facility] [place] [id number] [place] 00:00:00 00:00:00 [facility] - ty DO: [address] [facility] [place], [address] LEEANNA , Ph. [phone] 2023-03-29 2023-03-29 [facility] [place] [id number] [place] 00:00:00 00:00:00 [facility] Hospital - ty DO: [address] Hospit a [facility], HOSPITAL [place], [address] LEEANNA , Ph. 2023-03-18 2023-03-18 [facility] [place] [id number] [place] 00:00:00 00:00:00 [facility] Hospital - ty DO: [address] [facility] [place], [address] LEEANNA , Ph. 2023-03-10 2023-03-10 Lam [facility] [place] 06 [place] 00:00:00 00:00:00 [facility] 303 Hospital - ty [address] [facility] G, [place], [address] LEEANNA , Ph. 2023-02-25 2023-02-25 Dany [facility] [place] 00:00:00 00:00:00 [facility] - DO: [address] [facility] [place], [address] LEEANNA , Ph. [phone] 2023-02-17 2023-02-17 Office [facility] 6414 1.2.840.114 [id number] [place] 11:30:00 11:53:38 Visit Barry HERRING 350.1.13.58 [facility] 9.2.7.2.686 [id number] 2023-02-17 2023-02-17 Outpatient [facility] [id number] [place] 11:15:00 11:15:00 [facility] 2023-02-10 2023-02-10 [facility] [id number] [place] 11:30:00 11:30:00 [facility] 2023-02-10 2023-02-10 Outpatient [facility] [id number] [place] 11:30:00 11:30:00 [facility] 2023-01-11 2023-01-11 Outpatient ERICKSON_R [facility] [id number] [place] 00:00:00 00:00:00 623 [facility] 2023-01-11 2023-01-11 Outpatient [facility] [id number] [place] 00:00:00 00:00:00 626 [facility] 2023-01-11 2023-01-11 Outpatient [facility] [id number] [place] 00:00:00 00:00:00 706 [facility] 2023-01-11 2023-01-11 Outpatient [facility] [id number] [place] 00:00:00 00:00:00 714 [facility] 2023-01-11 2023-01-11 Outpatient [facility] [id number] [place] 00:00:00 00:00:00 725 [facility] 2022-12-30 2022-12-30 Office DAGOBERTO Pack 6414 1.2.840.114 [id number] [place] 10:30:00 11:31:18 Visit Barry FOSTER 350.1.13.58 [facility] 9.2.7.2.686 [id number] 1 2022-12-30 2022-12-30 Outpatient [facility] [id number] [place] 10:30:00 10:30:00 Health 2022-12-29 2022-12-29 Outpatient [facility] [id number] [place] 00:00:00 00:00:00 426 [facility] 2022-12-06 2022-12-06 [facility] [place] 00:00:00 00:00:00 [facility] DO: [address] Hospit a [facility] l [address], HOSPITAL [place], [address] LEEANNA , Ph. [phone] 2022-12-02 2022-12-02 Outpatient [facility] [id number] [place] 11:15:00 11:15:00 Health 2022-12-02 2022-12-02 Office DAGOBERTO Pack 6414 1.2.840.114 [id number] [place] 10:30:00 11:13:22 Visit Barry FOSTER 350.1.13.58 Health 9.2.7.2.686 [id number] 1 2022-12-02 2022-12-02 Outpatient [facility] [id number] [place] 10:30:00 10:30:00 Health 2022-11-23 2022-11-23 Dany [facility] [place] 00:00:00 00:00:00 [facility] DO: [address] Hospit a [facility] l [address], HOSPITAL [place], [address] LEEANNA , Ph. 2022-11-11 2022-11-11 Outpatient ERICKSON_R [facility] [id number] [place] 00:00:00 00:00:00 321 [facility] 2022-11-11 2022-11-11 Outpatient [facility]ICKSON_R [facility] [id number] [place] 00:00:00 00:00:00 323 [facility] 2022-11-11 2022-11-11 Outpatient [facility] [id number] [place] 00:00:00 00:00:00 403 [facility] 2022-11-04 2022-11-04 Office DAGOBERTO Pack 6414 1.2.840.114 [id number] [place] 10:15:00 10:40:25 Visit Barry FOSTER 350.1.13.58 Health 9.2.7.2.686 [id number] 1 2022-11-04 2022-11-04 Outpatient [facility] [id number] [place] 10:15:00 10:15:00 Health 2022-10-26 2022-10-26 Outpatient [facility] [id number] [place] 00:00:00 00:00:00 221 [facility] 2022-10-21 2022-10-21 Office DAGOBERTO [place] 6414 1.2.962.643 [id number] [place] 10:00:00 11:05:15 Visit Ree HERRING 350.1.13.58 Health 9.2.7.2.686 [id number] 1 2022-10-21 2022-10-21 Outpatient [facility] [id number] [place] 10:00:00 10:00:00 Health 2022-10-07 2022-10-21 Inpatient 3 COLLEEN BAKER [facility] [id number] [place] 21:37:00 09:00:00 AVIS [id number] [facility] [place] 2022-10-14 2022-10-14 Office DAGOBERTO [place] 6414 1.2.549.679 [id number] [place] 09:30:00 09:58:24 Visit Ree HERRING 350.1.13.58 Health 9.2.7.2.686 [id number] 1 2022-09-24 2022-09-24 Outpatient ERICKSON_R [facility] [id number] [place] 00:00:00 00:00:00 120 [facility] 2022-09-14 2022-09-14 Outpatient ERICKSON_R [facility] [id number] [place] 00:00:00 00:00:00 110 Commun i ty [facility] Clinics 2022-09-14 2022-09-14 Outpatient ERICKSON_R [facility] [id number] [place] 00:00:00 00:00:00 112 Commun i ty [facility] Clinics 2022-09-14 2022-09-14 Outpatient [facility]SON_R [facility] [id number] [place] 00:00:00 00:00:00 113 Commun i ty [facility]ita [facility] Clinics 2022-09-14 2022-09-14 [facility] [place] [id number] [place] 00:00:00 00:00:00 [facility] DO: [address] [facility] [address], HOSPITAL [place], [address] LEEANNA , Ph. 2022-05-17 2022-05-17 [facility] [id number] [address] [place] [address] 00:00:00 00:00:[address] 2022-04-15 2022-04-15 Travel 1.2.840.1 1.2.409.204 [id number] Methodi 00:00:00 00:00:[address] 3.430.2.7 0.2.7.3.698 Ho spita .3.771549 084.8 l .8 2022-04-12 2022-04-12 Outpatient ERICKSON_R [facility] [id number] - [place] 00:00:00 00:00:00 808 Commun i ty Hosp[facility] Clinics 2022-04-07 2022-04-07 Travel 1.2.840.1 1.2.337.138 [id number] [facility] 00:00:00 00:00:[address] 3.430.2.7 0.2.7.3.698 Ho spita .3.220667 084.8 l .8 2022-02-16 2022-02-16 Outpatient ERROMAN_R [facility] [id number] - [place] 02:37:00 02:37:00 614 Commun i ty Hospita [facility] 2022-02-16 2022-02-16 Dany [facility] [place] 14 [place] 00:00:00 00:00:00 [facility] [address] Hospit a [facility] l [address], HOSPITAL Clinic s [facility], [address] LEEANNA , Ph. 2022-02-16 2022-02-16 Outpatient Leeanna [facility] [id number] 00:00:00 00:00:00 Dany [id number]-x Juanpablo [id number] 2021-12-30 2021-12-30 Mayte MEYERS 1.2.840.114 [id number] Univers 00:00:00 00:00:00 Only Unassigned, PABLO 350.1.13.10 ity of Rafael Gonzalez [facility] 4.2.7.2.686 Dominic as [id number] [place] [address] [place] 2021-11-27 2021-11-27 Outpatient ERICKSON_R [facility] [id number] [place] 02:40:00 02:40:00 325 Commun [facility] Clinics 2021-11-17 2021-11-17 Outpatient ERICKSON_R [facility] [id number] [place] 04:12:00 04:12:00 315 Commun i ty [facility]ospita [facility] Clinics 2021-11-17 2021-11-17 Dany [facility] [place] 00:00:00 00:00:00 [facility] - ty DO: [address] Hospit a [facility], H[place], [address] LEEANNA , Ph. 2021-11-17 2021-11-17 [facility] [id number] 00:00:00 00:00:00 Dany 49c-11ec-a Juanpablo [id number] 2021-11-10 2021-11-10 Outpatient ERICKSON_R [facility] [id number] - [place] 12:26:00 12:26:00 308 Commun i ty Hospita [facility] 2021-11-10 2021-11-10 Dany [facility] [place] 00:00:00 00:00:00 [facility] - ty DO: [address] Hospit a [facility], [place], [address] LEEANNA , Ph. 2021-11-10 2021-11-10 [facility] [id number] 00:00:00 00:00:00 Dany r25-02ds-7 Juanpablo [id number] 2021-11-09 2021-11-09 Outpatient ERICKSON_R [facility] [id number] [place] 12:10:00 12:10:00 307 Commun i ty [facility] Clinics 2021-11-09 2021-11-09 Outpatient Leeanna, [facility] [id number] [id number] 00:00:00 00:00:00 Dany [id number]-l Juanpablo [id number] 2021-11-09 2021-11-09 Outpatient Leeanna, [facility] [id number] 00:00:00 00:00:00 Dany l9w-19pp-0 Juanpablo [id number] 2021-11-09 2021-11-09 Outpatient Leeanna, [facility] [id number] 00:00:00 00:00:00 Dany z5h-14yy-6 Juanpablo [id number] 2021-11-09 2021-11-09 Dany [facility] [place] 00:00:00 00:00:00 [facility] DO: [address] [facility] [address] LEEANNA , Ph. 2021-11-06 2021-11-06 Outpatient ERICKSON_R [facility] [id number] [place] 12:37:00 12:37:00 304 Commun i ty Hospita l [facility] 2021-11-06 2021-11-06 Outpatient Leeanna, [facility] [id number] 00:00:00 00:00:00 Dany be1-11ec-a Juanpablo [id number] 2021-11-06 2021-11-06 Dany [facility] [place] 00:00:00 00:00:00 [facility] DO: [address] [facility] [address] LEEANNA , Ph. [phone] 2021-11-05 2021-11-05 Outpatient ERICKSON_R [facility] [id number] [place] 03:35:00 03:35:00 303 Commun i ty [facility]ospita [facility] Clinics 2021-11-05 2021-11-05 Outpatient Leeanna [facility] [id number] 00:00:00 00:00:00 Dany u07-63en-o Juanpablo [id number] 2021-11-05 2021-11-05 Dany [facility] [place] 00:00:00 00:00:00 [facility] ty DO: [address] Hospit a [facility], [place], [address] LEEANNA , Ph. [phone] 2021-11-03 2021-11-03 Outpatient ERICKSON_R [facility] [id number] - [place] 12:59:00 12:59:00 301 Commun i ty Hospita l [facility] 2021-11-03 2021-11-03 Dany [facility] [place] 00:00:00 00:00:00 [facility] DO: [address] Hospit a [facility], [place], [address] LEEANNA , Ph. 2021-11-03 2021-11-03 Outpatient Leeanna [facility] [id number] [id number] 00:00:00 00:00:00 Dany 989-11ec-b Juanpablo [id number] 2021-11-02 2021-11-02 Outpatient ERICKSON_R [facility] [id number] - [place] 03:40:00 03:40:00 228 Commun i ty [facility]ospita [facility] Clinics 2021-11-02 2021-11-02 Dany [facility] [place] 00:00:00 00:00:00 [facility] - ty DO: [address] Hospit a [facility], HOSPITAL [facility], [address] LEEANNA , Ph. 2021-11-02 2021-11-02 Outpatient Leeanna [facility] [id number] 00:00:00 00:00:00 Dany [id number]-9 Juanpablo [id number] 2021-10-27 2021-10-27 Outpatient ERICKSON_R [facility] [id number] - [place] 04:29:00 04:29:00 222 Commun i ty Hospita l [facility] 2021-10-27 2021-10-27 Dany [facility] [place] 00:00:00 00:00:00 [facility] DO: [address] Hospit a [facility], HOSPITAL [facility], [address] LEEANNA , Ph. [phone] 2021-10-27 2021-10-27 Outpatient Leeanna [facility] [id number] 00:00:00 00:00:00 Dany 425-11ec-b Juanpablo [id number] 2021-10-01 2021-10-01 Outpatient ERICKSON_R [facility] [id number] - [place] 06:53:00 06:53:00 127 Commun i ty Hospita [facility] 2021-10-01 2021-10-01 Dany [facility] [place] 00:00:00 00:00:00 [facility] ty DO: [address] Hospit a [facility], [place], [address] LEEANNA , Ph. [phone] 2021-10-01 2021-10-01 Outpatient Iraheta, [facility] [id number] 00:00:00 00:00:00 Dany fcc-11ec-9 Juanpablo [id number] 2021-09-01 2021-09-01 Outpatient ERICKSON_R [facility] [id number] - [place] 10:43:00 10:43:00 228 Commun i ty Hospita l Clinics 2021-09-01 2021-09-01 Dany [facility] [place] [id number] [place] 00:00:00 00:00:00 [facility] DO: [address] [facility], [address] LEEANNA , Ph. 2021-09-01 2021-09-01 Outpatient Leeanna [facility] [id number] [id number] 00:00:00 00:00:00 Dany 071-11ec-9 Juanpablo [id number] 2021-07-02 2021-07-02 Outpatient ERICKSON_R [facility] [id number] - [place] 10:49:00 10:49:00 028 Commun i ty Hospita l [facility] 2021-07-02 2021-07-02 Outpatient Leeanna [facility] [id number] 00:00:00 00:00:00 Dany 7fd-11ec-a Juanpablo [id number] 2021-07-02 2021-07-02 Dany [facility] [place] 00:00:00 00:00:00 [facility] DO: [address] [facility] [employer], [place] CL[place]IC, [address] LEEANNA , Ph. 2021-06-23 2021-06-23 Outpatient ERICKSON_R [facility] [id number] - [place] 01:20:00 01:20:00 019 Commun i ty Hospita l [facility] 2021-05-19 2021-05-19 Outpatient ERICKSON_R [facility] [id number] [place] 01:20:00 01:20:00 914 Commun i ty Hospita l Clinics 2021-05-05 2021-05-05 Lynne Nino 1.2.840.8 [id number] Univers 00:00:00 00:00:00 Management 53476.1.1 i ty of 3.104.2.7 [place] .3.862851 Medica l .8 Branch 2021-04-28 2021-04-28 [facility] Jose Eduardo Valdovinos 1.2.840.7 [id number] [facility] [place] [facility] 07:31:12 23:59:00 Encounter D[facility] 50582.1.1 ity of 3.104.2.7 [place] .3.503786 Medica l .8 Branch 2021-04-13 2021-04-13 Outpatient ERICKSON_R [facility] [id number] [place] 11:47:00 11:47:00 809 Commun i ty Hospita l Clinics 2021-04-13 2021-04-13 Outpatient Leeanna [facility] [id number] 00:00:00 00:00:00 [facility] [place] [id number] [place] [id number] 2021-04-13 2021-04-13 Dany [facility] [place] 09 [place] 00:00:00 00:00:00 [facility] DO: [address] Hospit a [facility] l [address], HOSPITAL [place], [address] LEEANNA , Ph. 2021-04-07 2021-04-07 Outpatient ERICKSON_R [facility] [id number] [place] 12:33:00 12:33:00 803 Commun i ty Hospita l Clinics 2021-04-06 2021-04-06 Outpatient ERICKSON_R [facility] [id number] [place] 04:34:00 04:34:00 802 Commun i ty Hospita l Clinics 2021-04-06 2021-04-06 Outpatient Leeanna [facility] [id number] 00:00:00 00:00:00 Dany 3d7-86ha-s Juanpablo [id number] 2021-04-06 2021-04-06 Dany [facility] [place] 00:00:00 00:00:00 Juanpablo [facility] DO: [address] Hospit a [facility] l [address], HOSPITAL [place], [address] LEEANNA , Ph. 2021-04-01 2021-04-01 Outpatient ERCHACHOON_R [facility] [id number] [place] 01:49:00 01:49:00 728 Commun i ty Hospita l Clinics 2021-03-24 2021-03-24 Orders Doctor 1.2.840.5 [id number] Univers 00:00:00 00:00:00 Only Unassigned, 35133.1.1 ity of Rafael Gonzalez 3.104.2.7 [place] .3.508465 Medica l 8 [place] 2021-03-24 2021-03-24 Orders Doctor MIRA 1.2.840.114 [id number] 00:00:00 00:00:00 Only Unassigned, PABLO 350.1.13.10 Rafael Gonzalez HOSPITAL 4.2.7.2.686 [id number] 2021-03-20 2021-03-20 Outpatient ERCHACHOON_R [facility] [id number] [place] 10:54:00 10:54:00 716 Commun i ty Hospita l Clinics 2021-03-20 2021-03-20 Outpatient Leeanna [facility] [id number] 00:00:00 00:00:00 Dany 643-11eb-b Juanpablo [id number] 2021-03-20 2021-03-20 Dany [facility] [place] 00:00:00 00:00:00 [facility] DO: [address] Hospit a [facility] l [address], HOSPITAL Clinic [place], [place] CL[place], [address] LEEANNA , Ph. 2021-03-18 2021-03-18 Telephone Harrison, 1.2.840.1 [id number] Univers 00:00:00 00:00:00 Pamela 60537.1.1 ity of 3.104.2.7 [place] .3.728763 Medica l .8 Branch 2021-03-18 2021-03-18 Telephone Harrison, [facility] 1.2.345.547 [id number] 00:00:00 00:00:00 Pamela PRIMARY 350.1.13.10 CARE 4.2.7.2.686 PAVILLION [id number] 2021-03-16 2021-03-16 Transition Barker, 1.2.840.3 [id number] Univers 00:00:00 00:00:00 of Care Chelsey 32818.1.1 ity of 3.104.2.7 [place] .3.643923 Medica l .8 Branch 2021-03-16 2021-03-16 Transition Lucero Guillerminan 1.2.840.114 [id number] 00:00:00 00:00:00 of Care Chelsey Del Angel 350.1.13.10 [place] 4.2.7.2.686 [id number] 2021-03-11 2021-03-13 [facility] 1.2.840.3 [id number] Univers 02:03:00 17:36:00 Encounter Josy 71746.1.1 it y of 3.104.2.7 [place] .3.290749 Medica l .8 Branch 2021-03-11 2021-03-13 [facility] 1.2.840.114 [id number] 02:03:00 17:36:00 Encounter Josy Mcdonald 350.1.13.10 Hospital 4.2.7.2.686 [id number] 100 2021-03-12 2021-03-12 Case Zach, 1.2.840.6 [id number] Univers 00:00:00 00:00:00 Management Avtar 20075.1.1 i ty of 3.104.2.7 [place] .3.713725 Medica l .8 [place] 2021-03-12 2021-03-12 Case Zach [facility] 1.2.666.324 [id number] [id number] 00:00:00 00:00:00 Management Avtar [facility] 350.1.13.[address]686 [id number] 2021-02-25 2021-02-25 Outpatient LEEANNAMikki [facility] [id number] [place] 01:36:00 01:36:00 623 Commun i ty Hospita l [facility] 2021-02-20 2021-02-20 Orders Doctor 1.2.840.0 [id number] Univers 00:00:00 00:00:00 Only Unassigned, 68144.1.1 ity of Rafael Gonzalez 3.104.2.7 [place] .3.191361 Medica l .8 [place] 2021-02-20 2021-02-20 Orders Doctor MEYERS 1.2.840.114 [id number] 00:00:00 00:00:00 Only Unassigned, PABLO 350.1.13.10 Rafael Gonzalez [address]686 [id number] 2021-01-22 2021-01-22 Outpatient ERROMAN_Mikki [facility] [id number] [place] 01:03:00 01:03:00 520 Commun i ty Hospita l [facility] 2021-01-21 2021-01-21 Orders Doctor 1.2.840.5 [id number] Univers 00:00:00 00:00:00 Only Unassigned, 70547.1.1 ity of Rafael Gonzalez 3.104.2.7 [place] .3.046836 Medica l .8 [place] 2021-01-21 2021-01-21 Orders Doctor MIRA Montenegro.2.840.114 [id number] 00:00:00 00:00:00 Only Unassigned, PABLO 350.1.13.10 Rafael Gonzalez [facility] 4.2.7.2.686 [id number] 009 2021-01-08 2021-01-08 Orders Doctor 1.2.840.1 [id number] Univers 00:00:00 00:00:00 Only Unassigned, 60355.1.1 ity of Rafael Gonzalez 3.104.2.7 [place] .3.553070 Medica l .8 Branch 2021-01-08 2021-01-08 Orders Doctor MIRA 1.2.840.114 [id number] 00:00:00 00:00:00 Only Unassigned, PABLO 350.1.13.10 Rafael Gonzalez [facility] 4.2.7.2.686 [id number] 009 2021-01-05 2021-01-05 Transition Kadeem 1.2.840.9 [id number] Univers 00:00:00 00:00:00 of Care Todd Bates 38106.1.1 it y of 3.104.2.7 [place] .3.407444 Medica l .8 [place] 2021-01-05 2021-01-05 Transition Doyle Quan 1.2.840.114 840 [id number] 00:00:00 00:00:00 of Care Todd Bates Del Angel 350.1.13.10 [place] 4.2.7.2.686 [id number] [facility] 2020-12-21 2021-01-02 Inpatient CHANA S[facility]TER [facility] [id number] Univers 05:34:00 18:49:00 RAINE ity of [facility] 2020-12-21 [facility]7 059 [id number] Univers 05:34:00 18:49:00 Encounter Fabrizio Samuels 15885.1.1 ity of [facility] 3.104.2.7 [facility] .3.467889 [facility] .8 Branch 2020-12-21 2021-01-02 [facility] 1.2.8 40.114 [id number] 05:34:00 18:49:00 Encounter Fabrizio Samuels [place] [facility]13.10 [facility]2.686 [facility] [id number] 100 2020-12-27 2020-12-27 Anesthesia Jai Espinal 1.2.840 .1 [id number] [facility] [place] [facility] 15:47:00 16:43:00 Event De, Rhododendron 52493.1.1 it y of 3.104.2.7 [place] .3.268634 Medica l .8 Branch 2020-12-27 2020-12-27 Surgery Merwat, 1.2.840.6 [id number] Univers 14:55:00 16:17:00 Felipe 48472.1.1 ity of [place]ory 3.104.2.7 [place] .3.312206 Medica l .8 Branch 2020-12-27 2020-12-27 Surgery Dacia 1.2.840.114 [id number] 14:55:00 16:17:00 [place] 350.1.13.10 [facility] 4.2.7.2.686 [id number] 103 2020-12-22 2020-12-22 Anesthesia Jay, 1.2.840.0 [id number] Univers 12:32:00 13:04:00 Event Bela 85622.1.1 ity of 3.104.2.7 [place] .3.918918 Medica l .8 Branch 2020-12-22 2020-12-22 Surgery Sharma, 1.2.840.6 [id number] 71761 212 Univers 10:40:00 11:14:00 [place] 67987.1.1 ity of 3.104.2.7 [place] .3.192261 Medica l .8 Branch 2020-12-22 2020-12-22 Surgery [facility] 1.2.018.650 0293 3212 10:40:00 11:14:00 ICAL 350.1.13.10 SCIENCES 4.2.7.2.686 [facility] [id number] 020 2020-12-21 2020-12-21 Orders Walter, 1.2.840.9 [id number] Univers 00:00:00 00:00:00 Only Aidan 85876.1.1 ity of 3.104.2.7 [place] .3.758778 Medica l .8 Branch 2020-12-19 2020-12-19 Outpatient ERICKSON_R [facility] 8298 - [place] 11:02:00 11:02:00 416 Commun i ty Hospita [facility] Clinics 2020-12-19 2020-12-19 Outpatient Leeanna, [facility] [id number] 00:00:00 00:00:00 Dany [id number] Juanpablo [phone] [id number] 2020-12-19 2020-12-19 Dany [facility] [place] - [place] 16 [place] 00:00:00 00:00:00 [facility] DO: [address] [facility] [address] LEEANNA , Ph. [phone] 2020-12-18 2020-12-18 Outpatient ERICKSON_R [facility] [id number] [place] 01:01:00 01:01:00 415 [facility] 2020-11-17 2020-11-17 Outpatient ERICKSON_R [facility] [id number] [place] 04:44:00 04:44:00 315 [facility] 2020-11-17 2020-11-17 Dany [facility] [place] 15 [place] 00:00:00 00:00:00 [facility] DO: [address] [facility] [address] LEEANNA , Ph. 2020-11-17 2020-11-17 Outpatient Iraheta, [facility] [id number] 00:00:00 00:00:00 Dany [id number] Juanpablo [id number] 2020-11-10 2020-11-10 Outpatient ERICKSON_R [facility] [id number] [place] 11:28:00 11:28:00 308 [facility]ics 2020-11-10 2020-11-10 Dany [facility] [place] 08 [place] 00:00:00 00:00:00 [facility] DO: [address] [facility] [employer] [place] [facility], [address] LEEANNA , Ph. [phone] 2020-11-10 2020-11-10 Outpatient Leeanna, [facility] [id number] 00:00:00 00:00:00 Dany [id number] Juanpablo [id number] 2020-10-30 2020-10-30 Outpatient ERICKSON_R [facility] [id number] [place] 09:13:00 09:13:00 225 [facility] 2020-10-27 2020-10-27 Outpatient ERICKSON_R [facility] [id number] [place] 02:56:00 02:56:00 222 [facility]ics 2020-10-27 2020-10-27 Dany [facility] [place] 00:00:00 00:00:00 [facility] DO: [address] [facility], [address] LEEANNA , Ph. [phone] 2020-10-27 2020-10-27 Outpatient Leeanna, [facility] [id number] 00:00:00 00:00:00 Dany [id number] Juanpablo [id number] 2020-10-27 2020-10-27 Outpatient Leeanna [facility] [id number] 00:00:00 00:00:00 Dany [id number] Juanpablo [id number] 2020-10-21 2020-10-21 Outpatient ERICKSON_R [facility] [id number] [place] 11:44:00 11:44:00 216 [facility] Clinics 2020-10-17 2020-10-17 Outpatient ERICKSON_R [facility] [id number] [place] 11:23:00 11:23:00 212 Commun i [facility] Clinics 2020-10-17 2020-10-17 Outpatient Leeanna [facility] [id number] 00:00:00 00:00:00 Dany [id number] Juanpablo [id number] 2020-10-17 2020-10-17 Dany [facility] [place] 00:00:00 00:00:00 [facility] DO: [address] Hospit a [facility], H[facility]PITAL [facility], [address] LEEANNA , Ph. [phone] 2020-10-13 2020-10-13 Outpatient ERICKSON_R [facility] [id number] [place] 11:56:00 11:56:00 208 Commun i ty [facility] 2020-10-13 2020-10-13 Dany [facility] [place] 00:00:00 00:00:00 [facility] DO: [address] [facility] [place] [employer] [place] [facility], [address] LEEANNA , Ph. [phone] 2020-10-06 2020-10-06 Outpatient ERICKSON_R [facility] [id number] [place] 01:03:00 01:03:00 201 Commun i ty H[facility] Clinics 2020-09-30 2020-09-30 Outpatient ERICKSON_R [facility] [id number] [place] 02:16:00 02:16:00 126 Commun i ty Hosp[facility] Clinics 2020-09-26 2020-09-26 Outpatient ERICKSON_R [facility] [id number] [place] 09:12:00 09:12:00 122 Commun i ty Hospita [facility] Clinics 2020-09-23 2020-09-23 Outpatient ERICKSON_R [facility] [id number] [place] 09:29:00 09:29:00 119 Commun [facility] ty [facility] Clinics 2020-09-23 2020-09-23 Outpatient Leeanna [facility] [id number] 00:00:00 00:00:00 Dany [id number] [place] [id number] 2020-09-23 2020-09-23 Dany [facility] [place] 19 [place] 00:00:00 00:00:00 [facility] DO: [address] Hospit a [facility] [address], HOSPITAL Clinic s [facility], [address] LEEANNA , Ph. [phone] 2020-09-12 2020-09-12 Outpatient ERICKSON_R [facility] [id number] [place] 12:08:00 12:08:00 108 Commun i ty Hospita [facility] Clinics 2020-09-11 2020-09-11 Outpatient ERICKSON_R [facility] [id number] [place] 05:56:00 05:56:00 107 Commun i ty Hospita [facility] Clinics 2020-09-08 2020-09-08 Outpatient ERICKSON_R [facility] [id number] [place] 10:49:00 10:49:00 104 Commun i ty Hospita [facility] Clinics 2020-09-08 2020-09-08 Outpatient Iraheta [facility] [id number] 00:00:00 00:00:00 Dany [id number] [place] [id number] 2020-09-08 2020-09-08 [facility] [place] 00:00:00 00:00:00 [facility] [address] a [facility] l [address], HOSPITAL Clinic s [place], [place], [address] LEEANNA , Ph. 2020-09-01 2020-09-01 Outpatient ERICKSON_R [facility] 98 - [place] 01:03:00 01:03:00 228 Commun i ty Hospita [...] Blood (test code = Blood) Negative Specific [place] (test code = Specific [place]) 1.010 Ketone (test code = Ketone) Negative Bilirubin (test code = Bilirubin) Small Glucose (test code = Glucose) Negative Appearance (test code = Appearance) Slightly Cloudy Color (test code = Color) Yellow [facility] - Urine 2021-11-09 10:32:00 Test Item Value Reference Range Interpretation Comments Leukocytes (test code = Negative Leukocytes) Nitrite (test code = Nitrite) negative Urobilinogen (test code = .2 Urobilinogen) Protein (test code = Protein) 30 pH (test code = pH) 6.0 Blood (test code = Blood) Negative Specific [employer] [place] (test code = 1.020 Specific [place]) Ketone (test code = Ketone) Negative Bilirubin (test code = Bilirubin) Small Glucose (test code = Glucose) Negative Appearance (test code = Clear Appearance) Color (test code = Color) Dark Yellow [facility] (dipstick) panel - Urine 2021-11-09 10:32:00 Test Item Value Reference Range Interpretation Comments Leukocytes (test code = Negative Leukocytes) Nitrite (test code = Nitrite) negative Urobilinogen (test code = .2 Urobilinogen) Protein (test code = Protein) 30 pH (test code = pH) 6.0 Blood (test code = Blood) Negative Specific [employer] [place] (test code = 1.020 Specific [place]) Ketone (test code = Ketone) Negative Bilirubin (test code = Bilirubin) Small Glucose (test code = Glucose) Negative Appearance (test code = Clear Appearance) Color (test code = Color) Dark Yellow [facility] identified [facility] Urine by Culture 2021-10-30 00:00:00 Test Item Value Reference Range Interpretation Comments Bacteria identified in proteus mirabilis A Urine by Culture (test code = 630-4) Other Antibiotic comment [Susceptibility] (test code = 83642-5) [facility] 2021-10-30 00:00:00 Test Item Value Reference Range Interpretation Comments Bacteria identified in proteus mirabilis A Urine by Culture (test code = 630-4) Other Antibiotic comment [Susceptibility] (test code = 41187-3) [facility] 2021-10-30 00:00:00 Test Item Value Reference Range Interpretation Comments Bacteria identified in proteus mirabilis A Urine by Culture (test code = 630-4) Other Antibiotic comment [Susceptibility] (test code = 50507-0) [facility] by [facility] 2021-10-30 00:00:00 Test Item Value Reference Range Interpretation Comments Bacteria identified in proteus mirabilis A Urine by Culture (test code = 630-4) Other Antibiotic comment [Susceptibility] (test code = 05484-1) [facility] by [facility] 2021-10-30 00:00:00 Test Item Value Reference Range Interpretation Comments Bacteria identified in proteus mirabilis A Urine by Culture (test code = 630-4) Other Antibiotic comment [Susceptibility] (test code = 27976-1) [facility] by [facility] 2021-10-30 00:00:00 Test Item Value Reference Range Interpretation Comments Bacteria identified in proteus mirabilis A Urine by Culture (test code = 630-4) Other Antibiotic comment [Susceptibility] (test code = 04887-2) [facility] 2021-10-30 00:00:00 Test Item Value Reference Range Interpretation Comments Bacteria identified in proteus mirabilis A Urine by Culture (test code = 630-4) Other Antibiotic comment [Susceptibility] (test code = 80378-1) [facility] by [facility] 2021-10-30 00:00:00 Test Item Value Reference Range Interpretation Comments Bacteria identified in proteus mirabilis A Urine by Culture (test code = 630-4) Other Antibiotic comment [Susceptibility] (test code = 15995-6) [facility] U[facility] by Culture 2021-10-30 00:00:00 Test Item Value Reference Range Interpretation Comments Bacteria identified in proteus mirabilis A Urine by Culture (test code = 630-4) Other Antibiotic comment [Susceptibility] (test code = 71717-2) [facility] (dipstick) panel - Urine 2021-10-27 15:11:00 Test Item Value Reference Range Interpretation Comments Leukocytes (test code = Trace Leukocytes) Nitrite (test code = Nitrite) negative Urobilinogen (test code = .2 Urobilinogen) Protein (test code = Protein) 100 pH (test code = pH) 8.5 Blood (test code = Blood) Negative Specific [employer] [place] (test code = 1.000 Specific [place]) Ketone (test code = Ketone) Negative Bilirubin (test code = Bilirubin) Small Glucose (test code = Glucose) Negative Appearance (test code = Cloudy Appearance) Color (test code = Color) Dark Yellow [facility] (dipstick) panel - Urine 2021-10-27 15:11:00 Test Item Value Reference Range Interpretation Comments Leukocytes (test code = Trace Leukocytes) Nitrite (test code = Nitrite) negative Urobilinogen (test code = .2 Urobilinogen) Protein (test code = Protein) 100 pH (test code = pH) 8.5 Blood (test code = Blood) Negative Specific [employer] [place] (test code = 1.000 Specific [place]) Ketone (test code = Ketone) Negative Bilirubin (test code = Bilirubin) Small Glucose (test code = Glucose) Negative Appearance (test code = Cloudy Appearance) Color (test code = Color) Dark Yellow [facility] macro (dipstick) panel - Urine 2021-10-27 15:11:00 Test Item Value Reference Range Interpretation Comments Leukocytes (test code = Trace Leukocytes) Nitrite (test code = Nitrite) negative Urobilinogen (test code = .2 Urobilinogen) Protein (test code = Protein) 100 pH (test code = pH) 8.5 Blood (test code = Blood) Negative Specific [employer] [place] (test code = 1.000 Specific [place]) Ketone (test code = Ketone) Negative Bilirubin (test code = Bilirubin) Small Glucose (test code = Glucose) Negative Appearance (test code = Cloudy Appearance) Color (test code = Color) Dark Yellow [facility] macro (dipstick) panel - Urine 2021-10-27 15:11:00 Test Item Value Reference Range Interpretation Comments Leukocytes (test code = Trace Leukocytes) Nitrite (test code = Nitrite) negative Urobilinogen (test code = .2 Urobilinogen) Protein (test code = Protein) 100 pH (test code = pH) 8.5 Blood (test code = Blood) Negative Specific [employer] [place] (test code = 1.000 Specific [place]) Ketone (test code = Ketone) Negative Bilirubin (test code = Bilirubin) Small Glucose (test code = Glucose) Negative Appearance (test code = Cloudy Appearance) Color (test code = Color) Dark Yellow [facility] macro (dipstick) panel - Urine 2021-10-27 15:11:00 Test Item Value Reference Range Interpretation Comments Leukocytes (test code = Trace Leukocytes) Nitrite (test code = Nitrite) negative Urobilinogen (test code = .2 Urobilinogen) Protein (test code = Protein) 100 pH (test code = pH) 8.5 Blood (test code = Blood) Negative Specific [employer] [place] (test code = 1.000 Specific [place]) Ketone (test code = Ketone) Negative Bilirubin (test code = Bilirubin) Small Glucose (test code = Glucose) Negative Appearance (test code = Cloudy Appearance) Color (test code = Color) Dark Yellow [facility] macro (dipstick) panel - Urine 2021-10-27 15:11:00 Test Item Value Reference Range Interpretation Comments Leukocytes (test code = Trace Leukocytes) Nitrite (test code = Nitrite) negative Urobilinogen (test code = .2 Urobilinogen) Protein (test code = Protein) 100 pH (test code = pH) 8.5 Blood (test code = Blood) Negative Specific [employer] [place] (test code = 1.000 Specific [place]) Ketone (test code = Ketone) Negative Bilirubin (test code = Bilirubin) Small Glucose (test code = Glucose) Negative Appearance (test code = Cloudy Appearance) Color (test code = Color) Dark Yellow [facility]Ur[facility] macro (dipstick) panel - Urine 2021-10-27 15:11:00 Test Item Value Reference Range Interpretation Comments Leukocytes (test code = Trace Leukocytes) Nitrite (test code = Nitrite) negative Urobilinogen (test code = .2 Urobilinogen) Protein (test code = Protein) 100 pH (test code = pH) 8.5 Blood (test code = Blood) Negative Specific [employer] [place] (test code = 1.000 Specific [place]) Ketone (test code = Ketone) Negative Bilirubin (test code = Bilirubin) Small Glucose (test code = Glucose) Negative Appearance (test code = Cloudy Appearance) Color (test code = Color) Dark Yellow [facility]Ur[facility] macro (dipstick) panel - Urine 2021-10-27 15:11:00 Test Item Value Reference Range Interpretation Comments Leukocytes (test code = Trace Leukocytes) Nitrite (test code = Nitrite) negative Urobilinogen (test code = .2 Urobilinogen) Protein (test code = Protein) 100 pH (test code = pH) 8.5 Blood (test code = Blood) Negative Specific [employer] [place] (test code = 1.000 Specific [place]) Ketone (test code = Ketone) Negative Bilirubin (test code = Bilirubin) Small Glucose (test code = Glucose) Negative Appearance (test code = Cloudy Appearance) Color (test code = Color) Dark Yellow [facility]Urinalysis macro (dipstick) panel - Urine 2021-10-27 15:11:00 Test Item Value Reference Range Interpretation Comments Leukocytes (test code = Trace Leukocytes) Nitrite (test code = Nitrite) negative Urobilinogen (test code = .2 Urobilinogen) Protein (test code = Protein) 100 pH (test code = pH) 8.5 Blood (test code = Blood) Negative Specific [employer] [place] (test code = 1.000 Specific [place]) Ketone (test code = Ketone) Negative Bilirubin (test code = Bilirubin) Small Glucose (test code = Glucose) Negative Appearance (test code = Cloudy Appearance) Color (test code = Color) Dark Yellow [facility]Bacteria identified in Urine by Culture 2021-10-05 00:00:00 Test Item Value Reference Range Interpretation Comments Bacteria identified in Urine escherichia coli A by Culture (test code = 630-4) Other Antibiotic comment [Susceptibility] (test code = 49975-4) [facility] macro (dipstick) panel - Urine 2021-10-01 17:52:00 Test Item Value Reference Range Interpretation Comments Leukocytes (test code = Moderate Leukocytes) Nitrite (test code = Nitrite) negative Urobilinogen (test code = .2 Urobilinogen) Protein (test code = Protein) 30 pH (test code = pH) 6.0 Blood (test code = Blood) Negative Specific [employer] [place] (test code = 1.020 Specific [place]) Ketone (test code = Ketone) Small Bilirubin (test code = Bilirubin) Negative Glucose (test code = Glucose) Negative Appearance (test code = Cloudy Appearance) Color (test code = Color) Dark Yellow [facility] NorthwestPOCT GLUCOSE (AUTOMATED)2021-03-13 16:52:34 Test Item Value Reference Range Interpretation Comments POCT GLU (test code = 3360506411) 152 mg/dL 70-110 H Lab Interpretation (test code = Abnormal 70136-7) [facility] (NA, K, CL, CO2, GLUCOSE, BUN, CREATININE, CA)2021-03-13 12:03:23 Test Item Value Reference Range Interpretation Comments NA (test code = 139 mmol/L 135-145 1234111805) K (test code = 3.5 mmol/L 3.5-5.0 1754253676) CL (test code = 112 mmol/L 98-108 H 7005521789) CO2 TOTAL (test code = 27 mmol/L 23-31 8309820646) AGAP (test code = <1 2-16 L 8931471300) BUN (test code = 22 mg/dL 7-23 2256988198) GLUCOSE (test code = 125 mg/dL 70-110 H 2144233531) CREATININE (test code = 0.64 mg/dL 0.50-1.04 9822197375) CALCIUM (test code = 7.9 mg/dL 8.6-10.6 L 4139785231) eGFR (test code = mL/min/1.73m2 6982873782) INDRA (test code = INDRA) Association of [...] tests). Lab Interpretation Abnormal (test code = 41089-6) [facility] WITHOUT [id number] 11:39:33 Test Item Value Reference Range Interpretation Comments WBC (test code = 6690-2) See_Comment L [A utomated message] The system [employer] generated this result transmit komal reference range : 4.30 - 11.10 10*3/?L. The reference range was not used to interpret this result as normal/abnormal . RBC (test code = 789-8) See_Comment L [Au tomated message] The system [employer] generated this result transmit komal reference range [...] See_Comment L [Au tomated message] The system [facility] generated this result transmit komal reference range : 166 - 358 10*3/?L. The reference range was not used to interpret this result as normal/abnormal . MPV (test code = 11.1 fL 9.5-12.9 51465-6) RDW-CV (test code = 16.7 % 12.0-15.5 H 788-0) RDW-SD (test code = 56.3 fL 39.0-49.9 H 26922-2) NRBC x10^3 (test code = <0.01 See_Comment [Au tomated message] 3965303157) The system [facility] generated this result transmit komal reference range : 10*3/?L. The reference range was not used to interpret this result as normal/abnormal . NRBC/100 WBC (test code See_Comment [Au tomated message] = 5955981815) The system [facility] generated this result transmit komal reference range : 0.0 - 10.0 /100 WBC s. The reference r ming was not used to interpret this result as normal/abnormal . IPF % (test code = 2859528294) Lab Interpretation (test Abnormal code = 35820-6) [facility] 11:03:56 Test Item Value Reference Range Interpretation Comments MAGNESIUM (test code = 6678085009) 2.6 mg/dL 1.7-2.4 H Lab Interpretation (test code = Abnormal 28194-0) [facility] WITH [id number] 10:36:35 Test Item Value Reference Range Interpretation [...] (test code = 56.6 fL 39.0-49.9 H 11826-7) RDW-CV (test code = 16.4 % 12.0-15.5 H 788-0) PLT (test code = See_Comment L [Automated 777-3) message] The sy stem which generated this result transmitted reference range : 166 - 358 10*3/ ?L. The reference r ming was not used to interpret this result as normal/abnormal . MPV (test code = 11.6 fL 9.5-12.9 06210-4) NRBC/100 WBC (test See_Comment [Automat ed code = 8686387123) message] The system which generated this result transmitted reference range : 0.0 - 10.0 /100 WBCs. The refer ence range was not u sed to interpret th is result as normal/abnormal . NRBC x10^3 (test code <0.01 See_Comment [Auto mated = 0197159861) message] The s ystem which generated this result transmitted reference range : 10*3/?L. The reference range was not used to interpret this result as normal/abnormal . GRAN MAT (NEUT) % 77.8 % (test code = 770-8) IMM GRAN % (test code 0.30 % = 8546562920) LYMPH % (test code = 16.7 % 736-9) MONO % (test code = 4.4 % 5905-5) EOS % (test code = 0.5 % 713-8) BASO % (test code = 0.3 % 706-2) GRAN MAT x10^3(ANC) 2.84 10*3/uL 1.88-7.09 (test code = 4835378148) IMM GRAN x10^3 (test <0.03 0.00-0.06 code = 7835744539) LYMPH x10^3 (test code 0.61 10*3/uL 1.32-3.29 L = 731-0) MONO x10^3 (test code 0.16 10*3/uL 0.33-0.92 L = 742-7) EOS x10^3 (test code = <0.03 0.03-0.39 L 711-2) BASO x10^3 (test code <0.03 0.01-0.07 = 704-7) Lab Interpretation Abnormal (test code = 15622-8) [facility] (for use with Heparin Drip)2021-03-12 05:32:09 Test Item Value Reference Range Interpretation Comments APTT Patient (test code >150 See_Comment HH [Au tomated message] = 3173-2) The system [employer] generated this result transmitted ref erence range: 26 - 36 Seconds. The reference range was not used to int erpret this result as normal/abnormal . Lab Interpretation (test Abnormal code = 17086-8) [facility] [id number] 15:29:50 Test Item Value Reference Range Interpretation Comments IRON (test code = 6602851817) 53 ug/dL 50-160 TIBC (test code = 0710753426) 329 ug/dL 250-410 % FE SAT (test code = 0776217615) 16 % 20-50 L Lab Interpretation (test code = Abnormal 88824-4) [facility] [id number] 15:14:27 Test Item Value Reference Range Interpretation Comments FREE T4 (test code = See_Comment [Autom ated message] 2518890556) The system [employer] generated this result transmitted ref erence range: 0.78 - 2 .20 ng/dL:. The ref erence range was not u sed to interpret this result as normal/abnor mal. Lab Interpretation (test Normal code = 46628-6) [facility] HospitalFERRITIN [id number] 14:53:03 Test Item Value Reference Range Interpretation Comments FERRITIN (test code = 27.3 ng/mL 11.0-264.0 5863930608) INDRA (test code = INDRA) Biotin has been reported to cause a negative bias, interpret results relative to patient's use of biotin. Lab Interpretation (test Normal code = 71158-1) [facility] HospitalFREE [id number] 14:31:57 Test Item Value Reference Range Interpretation Comments FREE T3 (test code = 2379409868) 1.71 pg/mL 2.77-5.27 L Lab Interpretation (test code = Abnormal 61095-9) [facility] HospitalCOMP. METABOLIC PANEL (13254)2021-03-11 14:26:43 Test Item Value Reference Range Interpretation Comments NA (test code = 141 mmol/L 135-145 8349631729) K (test code = 2.9 mmol/L 3.5-5.0 LL 0255641919) CL (test code = 106 mmol/L 98-108 4809661857) CO2 TOTAL (test code = 33 mmol/L 23-31 H 0665136171) AGAP (test code = 2-16 8498193610) BUN (test code = 14 mg/dL 7-23 6998378983) GLUCOSE (test code = 63 mg/dL 70-110 L 9817785461) CREATININE (test code = 0.53 mg/dL 0.50-1.04 3844115444) TOTAL BILI (test code = 0.5 mg/dL 0.1-1.9 3212277649) CALCIUM (test code = 7.9 mg/dL 8.6-10.6 L 7084761465) T PROTEIN (test code = 5.8 g/dL 6.3-8.2 L 3989531972) ALBUMIN (test code = 2.9 g/dL 3.5-5.0 L 9158660064) ALK PHOS (test code = 33 U/L 34-122 L 8947049878) ALTv (test code = 8 U/L 5-35 1742-6) AST(SGOT) (test code = 26 U/L 13-40 8727606670) eGFR (test code = mL/min/1.73m2 3215488289) INDRA (test code = INDRA) Association of [...] tests). Lab Interpretation Abnormal (test code = 75416-0) [facility] HospitalPROTHROMBIN TIME / [id number] 13:40:32 Test Item Value Reference Range Interpretation Comments PROTIME PATIENT (test See_Comment H [Auto mated message] code = 5964-2) The system [employer] generated this result transmitted ref erence range: 10.1 - 1 2.6 Seconds. The reference range was not used to int erpret this result as normal/abnormal . INR (test code = 6301-6) Nor mal INR <1.1; Warfarin Therap eutic range 2.0 to 3. 0 or 2.5 to 3.5, dep ending upon the indica tions. Lab Interpretation (test Abnormal code = 77820-2) [facility] HospitalUrinalysis macro (dipstick) panel - Urine 2020-10-17 10:17:00 Test Item Value Reference Range Interpretation Comments Leukocytes (test code = Leukocytes) Negative Nitrite (test code = Nitrite) negative Urobilinogen (test code = .2 Urobilinogen) Protein (test code = Protein) Trace pH (test code = pH) 8.0 Blood (test code = Blood) Negative Specific [place] (test code = 1.010 Specific [place]) Ketone (test code = Ketone) Negative Bilirubin (test code = Bilirubin) Negative Glucose (test code = Glucose) Negative [facility] - Urine 2020-10-17 10:17:00 Test Item Value Reference Range Interpretation Comments Leukocytes (test code = Leukocytes) Negative Nitrite (test code = Nitrite) negative Urobilinogen (test code = .2 Urobilinogen) Protein (test code = Protein) Trace pH (test code = pH) 8.0 Blood (test code = Blood) Negative Specific [place] (test code = 1.010 Specific [place]) Ketone (test code = Ketone) Negative Bilirubin (test code = Bilirubin) Negative Glucose (test code = Glucose) Negative [facility] - Urine 2020-10-17 10:17:00 Test Item Value Reference Range Interpretation Comments Leukocytes (test code = Leukocytes) Negative Nitrite (test code = Nitrite) negative Urobilinogen (test code = .2 Urobilinogen) Protein (test code = Protein) Trace pH (test code = pH) 8.0 Blood (test code = Blood) Negative Specific [place] (test code = 1.010 Specific [place]) Ketone (test code = Ketone) Negative Bilirubin (test code = Bilirubin) Negative Glucose (test code = Glucose) Negative [facility] - Urine 2020-10-13 10:40:00 Test Item Value Reference Range Interpretation Comments Leukocytes (test code = Leukocytes) Negative Nitrite (test code = Nitrite) negative Urobilinogen (test code = 1 Urobilinogen) Protein (test code = Protein) 30 pH (test code = pH) 7.0 Blood (test code = Blood) Negative Specific [place] (test code = 1.010 Specific [place]) Ketone (test code = Ketone) Negative Bilirubin (test code = Bilirubin) Negative Glucose (test code = Glucose) Negative Appearance (test code = Appearance) Clear Color (test code = Color) [facility] Urine 2020-10-13 10:40:00 Test Item Value Reference Range Interpretation Comments Leukocytes (test code = Leukocytes) Negative Nitrite (test code = Nitrite) negative Urobilinogen (test code = 1 Urobilinogen) Protein (test code = Protein) 30 pH (test code = pH) 7.0 Blood (test code = Blood) Negative Specific [place] (test code = 1.010 Specific [place]) Ketone (test code = Ketone) Negative Bilirubin (test code = Bilirubin) Negative Glucose (test code = Glucose) Negative Appearance (test code = Appearance) Clear Color (test code = Color) [facility] - Urine 2020-10-13 10:40:00 Test Item Value Reference Range Interpretation Comments Leukocytes (test code = Leukocytes) Negative Nitrite (test code = Nitrite) negative Urobilinogen (test code = 1 Urobilinogen) Protein (test code = Protein) 30 pH (test code = pH) 7.0 Blood (test code = Blood) Negative Specific [place] (test code = 1.010 Specific [place]) Ketone (test code = Ketone) Negative Bilirubin (test code = Bilirubin) Negative Glucose (test code = Glucose) Negative Appearance (test code = Appearance) Clear Color (test code = Color) [facility] ([facility]stick) panel - Urine 2020-10-13 10:40:00 Test Item Value Reference Range Interpretation Comments Leukocytes (test code = Leukocytes) Negative Nitrite (test code = Nitrite) negative Urobilinogen (test code = 1 Urobilinogen) Protein (test code = Protein) 30 pH (test code = pH) 7.0 Blood (test code = Blood) Negative Specific [place] (test code = 1.010 Specific [place]) Ketone (test code = Ketone) Negative Bilirubin (test code = Bilirubin) Negative Glucose (test code = Glucose) Negative Appearance (test code = Appearance) Clear Color (test code = Color) Yellow [facility] [id number] (COVID-19) Ag [Presence] in Respiratory specimen by Rapid [id number] 08:28:00 Test Item Value Reference Range Interpretation Comments SARS CoV 2 (test code = SARS CoV 2) negative [facility]/ [id number] 14:50:00 Test Item Value Reference Range Interpretation [...] 1584) SOURCE(BEAKER) (test code = Urine, Voided 0770) [id number] 13:11:00 Test Item Value Reference Range Interpretation Comments LIPASE (BEAKER) (test code = 749) 45 U/L 8-78 BASIC METABOLIC [id number] 13:11:00 Test Item Value Reference Range Interpretation [...] APPLICABLE FOR DIALYSIS PATIEN TS. HEPATIC FUNCTION [id number] 13:11:00 Test Item Value Reference Range Interpretation [...] (test code = 14 U/L 6-55 347) [id number] 13:02:00 Test Item Value Reference Range Interpretation [...] mechanical heart valves.CBC W/PLT COUNT & AUTO [id number] 12:56:00 Test Item Value Reference Range Interpretation [...] PERCENT (BEAKER) (test code = 2801) TISSUE [id number] 13:06:00Surgical Pathology Report Case: [id number] Authorizing Provider: Freddy Luizleanne Kay Collected: 03/14/2018 1115 Ordering Location: [facility] Endoscopy Received: 03/14/2018 1351 Services Pathologist: Mara Barboza MD Specimens: A) - Polyp, Duodenum B) - Stomach, Antrum, bx C) - Biopsy, Gastric, gastric body D) - Biopsy, Esophagus, random THIS ADDENDUM IS ISSUED TO REPORT THE RESULT OF IMMUNOHISTOCHEMICAL STUDY FOR HELICOBACTER PYLORI OM SPECIMEN B: - NEGATIVE CPT CODE: [id number] el ectronically signed by Mara Barboza MD on 03/20/2018 at 1:06 PMA. DUODENUM, ENDOSCOPIC POLYPECTOMY: - COMPATIBLE WITH PEPTIC DUODENITIS - NO FEATURES OF CELIAC DISEASE SEEM - NEGATIVE FOR DYSPLASIA OR MALIGNANCYB. STOMACH, ANTRUM, ENDOSCOPIC BIOPSY: - ACUTE GASTRITIS WITH EROSIONS AND REACTIVE GASTROPATHY - NO HELICOBACTER PYLORI-LIKE ORGANISMS SEEN ON WARTHIN-STARRY STAIN - NO INTESTINALMETAPLASI, DYSPLASIA OR MALIGNANCY NOTED - IMMUNOHISTOCHEMICAL STAIN FOR HELICOBACTER IS BEING DONE;RESULT WILL BE ISSUED IN FINAL REPORTC. STOMACH, BODY, ENDOSCOPIC BIOPSY: - OXYNTIC MUCOSA WITH NO PA THOLOGIC ALTERATION - NO HELICOBACTER PYLORI-LIKE ORGANISMS SEEN ON [place]- STARRY STAIN - NO INTESTINAL METAPLASIA, DYSPLASIA OR MALIGNANCY NOTED D. ESOPHAGUS, RANDOM,ENDOSCOPIC BIOPSY - MULTIPLE FRAGMENTS OF SQUAMOUS MUCOSA WITH REACTIVE CHANGES - NO FEATURES OF REFLUX ESOPHAGITIS ARE SEEN - NO FEATURES OF EOSINOPHILIC ESOPHAGITIS NOTED - NO COLUMNAR MUCOSA PRESENT - NO DYSPLASIA OR MALIGNANCY SEENSigning Pathologist Direct Phone Line: [phone] signed by Mara Barboza MD on 03/17/2018 at 10:35 [id number] X 4; [id number] X 2A. Polyp, duodenum. B. Stomach antrum. [...] are is a 0.4 x 0.2 x 0.2cm aggregate of brown-chavez irregular shaped fragment of [...] interpretation is incorporated in the diagnostic report above:HARSH BLACK X 2POCT-GLUCOSE [id number] 12:41:00 Test Item Value Reference Range Interpretation Comments POC-GLUCOSE METER 75 mg/dL 70-110 TESTED AT [place] [address] ([facility]) (test code = [facility] [address] 1538) BLOOD [id number] 06:00:00 Test Item Value Reference Range Interpretation Comments CULTURE (BEAKER) (test No growth in 5 days code = 1095) BLOOD [id number] 06:00:00 Test Item Value Reference Range Interpretation Comments CULTURE (BEAKER) (test No growth in 5 days code = 1095) POCT-GLUCOSE [id number] 12:32:00 Test Item Value Reference Range Interpretation Comments POC-GLUCOSE METER 217 mg/dL 70-110 H TESTED AT [place] [address] ([facility]) (test code = [facility] 1538) [address] POCT-GLUCOSE [id number] 08:36:00 Test Item Value Reference Range Interpretation Comments POC-GLUCOSE METER 92 mg/dL 70-110 TESTED AT [place] [address] ([facility]) (test code = [facility] [address] 1538) COMPREHENSIVE METABOLIC [id number] 04:59:00 Test Item Value Reference Range Interpretation [...] S NOT APPLICABLE FOR DIALYSIS PATIEN TS. [id number] 04:50:00 Test Item Value Reference Range Interpretation Comments MAGNESIUM (BEAKER) (test code = 1.7 mg/dL 1.6-2.6 627) PROTHROMBIN [id number] 04:35:00 Test Item Value Reference Range Interpretation [...] mechanical heart valves.CBC W/PLT COUNT & AUTO [id number] 04:24:00 Test Item Value Reference Range Interpretation [...] PERCENT (AKER) (test code = 2801) POCT-GLUCOSE [id number] 22:13:00 Test Item Value Reference Range Interpretation Comments POC-GLUCOSE METER 194 mg/dL 70-110 H TESTED AT [place] [address] ([facility]) (test code = [facility] 1538) [address] POCT-GLUCOSE [id number] 18:14:00 Test Item Value Reference Range Interpretation Comments POC-GLUCOSE METER 195 mg/dL 70-110 H TESTED AT [place] [address] ([facility]) (test code = [facility] 1538) [address] POCT-GLUCOSE [id number] 12:20:00 Test Item Value Reference Range Interpretation Comments POC-GLUCOSE METER 224 mg/dL 70-110 H TESTED AT [place] [address] ([facility]) (test code = [facility] 1538) [address] [id number] 08:55:00 Test Item Value Reference Range Interpretation Comments LIPASE ([facility]) (test code = 749) 471 U/L 8-78 H POCT-GLUCOSE [id number] 08:12:00 Test Item Value Reference Range Interpretation Comments POC-GLUCOSE METER 128 mg/dL 70-110 H TESTED AT [place] [address] ([facility]) (test code = [facility] 1538) [address] [id number] 04:12:00 Test Item Value Reference Range Interpretation Comments T3 TOTAL (BEAKER) (test code = 656) 41 ng/dL 48-159 L T3, [id number] 04:11:00 Test Item Value Reference Range Interpretation Comments T3 FREE ([facility]) (test code = 908) 1.31 pg/mL 1.71-3.71 L COMPREHENSIVE METABOLIC [id number] 04:01:00 Test Item Value Reference Range Interpretation [...] S NOT APPLICABLE FOR DIALYSIS PATIEN TS. [id number] 03:54:00 Test Item Value Reference Range Interpretation Comments MAGNESIUM (BEAKER) (test code = 1.7 mg/dL 1.6-2.6 627) PROTHROMBIN [id number] 03:53:00 Test Item Value Reference Range Interpretation [...] mechanical heart valves.CBC W/PLT COUNT & AUTO [id number] 03:46:00 Test Item Value Reference Range Interpretation [...] PERCENT (BEAKER) (test code = 2801) POCT-GLUCOSE [id number] 22:34:00 Test Item Value Reference Range Interpretation Comments POC-GLUCOSE METER 252 mg/dL 70-110 H TESTED AT [facility] 67[address] ([facility]) (test code = [facility] 1538) [address] [id number] 19:36:00 Test Item Value Reference Range Interpretation Comments MAGNESIUM (BEAKER) (test code = 1.6 mg/dL 1.6-2.6 627) BASIC METABOLIC [id number] 19:36:00 Test Item Value Reference Range Interpretation [...] NOT APPLICABLE FOR DIALYSIS PATIEN TS. URINE [id number] 11:51:00 Test Item Value Reference Range Interpretation Comments CULTURE (BEAKER) (test code = 1095) No growth POCT-GLUCOSE [id number] 11:42:00 Test Item Value Reference Range Interpretation Comments POC-GLUCOSE METER 205 mg/dL 70-110 H TESTED AT [facility] [address] ([facility]) (test code = [facility] 1538) [address] POCT-GLUCOSE [id number] 08:08:00 Test Item Value Reference Range Interpretation Comments POC-GLUCOSE METER 119 mg/dL 70-110 H TESTED AT [place] [address] ([facility]) (test code = MICAH Kaye [facility] 1538) [address] C. DIFFICILE GDH [id number] 07:40:00 Test Item Value Reference Range Interpretation Comments CDT TOXIN (test code Negative Negative = [id number]) CDT GDH ANTIGEN Positive Negative A C. difficile present but (test code = toxin not detec komal. [id number]) Indicates colon ization with non-toxige lizbeth strain or level of tox in below detectable leve ls. No need for enteri c isolation. Leonela tment is rarely needed ( only when strong clinical suspicion for Clostridium difficile infection) Testing performed by [employer] Rapid Cassette Assay. For GDH, published sensitivity of the assay is 98.7% compared to cytotoxicity testing. For Toxin AB, published sensitivity is 87.8% and specificity 99.4% compared to cytotoxicity testing.Verification of kit performance was done by the [facility] prior to clinical use.POCT-GLUCOSE [id number] 06:37:00 Test Item Value Reference Range Interpretation Comments POC-GLUCOSE METER 141 mg/dL 70-110 H TESTED AT [place] [address] ([facility]) (test code = MICAH Kaye [facility] 1538) [address] COMPREHENSIVE METABOLIC [id number] 04:48:00 Test Item Value Reference Range Interpretation Comments TOTAL PROTEIN 4.7 gm/dL 6.0-8.3 L ([facility]) (test code = 770) ALBUMIN (BEAKER) 2.7 g/dL 3.5-5.0 L (test code = 1145) ALKALINE PHOSPHATASE 33 U/L 40-150 L (AKER) (test code = 346) BILIRUBIN TOTAL 0.4 [...] NOT APPLICABLE FOR DIALYSIS PATIEN TS. PROTHROMBIN [id number] 04:40:00 Test Item Value Reference Range Interpretation Comments PROTIME (BEAKER) (test code = 23.8 seconds 11.7-14.7 H 759) INR (BEAKER) (test code = 370) 2.1 <=5.9 RECOMMENDED COUMADIN/WARFARIN INR THERAPY RANGESSTANDARD DOSE: 2.0 - 3.0 Includes: PROPHYLAXIS for venous thrombosis, systemic embolization; TREATMENT for venous thrombosis and/or pulmonary embolus.HIGH RISK: Target INR is 2.5-3.5 for patients with mechanical heart valves.While on warfarin.[id number] 04:29:00 Test Item Value Reference Range Interpretation Comments MAGNESIUM (BEAKER) (test code = 2.0 mg/dL 1.6-2.6 627) CBC W/PLT COUNT & AUTO [id number] 04:11:00 Test Item Value Reference Range Interpretation [...] 0-1 PERCENT (BEAKER) (test code = 2802) POCT-GLUCOSE [id number] 22:19:00 Test Item Value Reference Range Interpretation Comments POC-GLUCOSE METER 266 mg/dL 70-110 H TESTED AT [facility] 67[address] (BEAKER) (test code = MICAH CHANG 1538) [address] [id number] 17:54:00 Test Item Value Reference Range Interpretation Comments POTASSIUM (BEAKER) (test code = 4.2 meq/L 3.5-5.1 379) [id number] 17:23:00 Test Item Value Reference Range Interpretation Comments MAGNESIUM (BEAKER) (test code = 1.7 mg/dL 1.6-2.6 627) POCT-GLUCOSE [id number] 12:41:00 Test Item Value Reference Range Interpretation Comments POC-GLUCOSE METER 111 mg/dL 70-110 H TESTED AT [facility] [address] (BEAKER) (test code = MICAH Kaye [facility] 1538) [address] [id number] 12:40:00 Test Item Value Reference Range Interpretation Comments POTASSIUM (BEAKER) (test code = 3.5 meq/L 3.5-5.1 379) POCT-GLUCOSE [id number] 10:05:00 Test Item Value Reference Range Interpretation Comments POC-GLUCOSE METER 94 mg/dL 70-110 TESTED AT [facility] [address] (BEAKER) (test code = MICAH Kaye [facility] [address] 1538) COMPREHENSIVE METABOLIC [id number] 05:47:00 Test Item Value Reference Range Interpretation [...] S NOT APPLICABLE FOR DIALYSIS PATIEN TS. [id number] 05:44:00 Test Item Value Reference Range Interpretation Comments MAGNESIUM (BEAKER) (test code = 2.0 mg/dL 1.6-2.6 627) PROTHROMBIN [id number] 05:37:00 Test Item Value Reference Range Interpretation Comments PROTIME (BEAKER) (test code = 24.0 seconds 11.7-14.7 H 759) INR (BEAKER) (test code = 370) 2.2 <=5.9 RECOMMENDED COUMADIN/WARFARIN INR THERAPY RANGESSTANDARD DOSE: 2.0 - 3.0 Includes: PROPHYLAXIS for venous thrombosis, systemic embolization; TREATMENT for venous thrombosis and/or pulmonary embolus.HIGH RISK: Target INR is 2.5-3.5 for patients with mechanical heart valves.PROTHROMBIN TIME/[id number] 05:36:00 Test Item Value Reference Range Interpretation [...] valves.While on warfarin.CBC W/PLT COUNT & AUTO [id number] 05:35:00 Test Item Value Reference Range Interpretation [...] PERCENT (BEAKER) (test code = 2801) POCT-GLUCOSE [id number] 23:56:00 Test Item Value Reference Range Interpretation Comments POC-GLUCOSE METER 105 mg/dL 70-110 TESTED AT [facility] 67[address] (BEAKER) (test code = [facility] [address] 1538) [address] TROPONIN [id number] 13:02:00 Test Item Value Reference Range Interpretation [...] 0-100 H (test code = 700) POCT-GLUCOSE [id number] 12:18:00 Test Item Value Reference Range Interpretation Comments POC-GLUCOSE METER 175 mg/dL 70-110 H TESTED AT [facility] 67[address] (MATTHEW) (test code = MICAH Kaye [facility] 1538) [address] U/S, ABDOMINAL, [id number] 10:23:00Abdomen limited area? Add comment if clarification [...] Coffey MDReport Verified Date/Time: 01/14/2018 10:23:02 Reading Location:[facility] B1 C013X Ortho Consult Reading Room T4, [id number] 08:42:00 Test Item Value Reference Range Interpretation Comments FREE T4 (BEAKER) (test code = 655) 0.83 ng/dL 0.70-1.48 POCT-GLUCOSE [id number] 08:37:00 Test Item Value Reference Range Interpretation Comments POC-GLUCOSE METER 161 mg/dL 70-110 H TESTED AT [facility] 67[address] ([facility]) (test code = [facility] 1538) [address] TSH/FREE T4 IF [id number] 08:05:00 Test Item Value Reference Range Interpretation Comments THYROID STIMULATING HORMONE 0.02 uIU/mL 0.35-4.94 L (BEAKER) (test code = 772) VITAMIN B12 AND [id number] 07:42:00 Test Item Value Reference Range Interpretation Comments VITAMIN B12 (BEAKER) (test code = 1276 pg/mL 213-816 H 774) FOLATE (BEAKER) (test code = 362) 8.8 ng/mL >=7.0 LIPID [id number] 07:14:00 Test Item Value Reference Range Interpretation Comments TRIGLYCERIDES (BEAKER) (test code = 171 mg/dL 540) CHOLESTEROL (BEAKER) (test code = 123 mg/dL 631) HDL CHOLESTEROL (BEAKER) (test code 25 mg/dL = 976) LDL CHOLESTEROL CALCULATED ([facility]) 64 mg/dL (test code = [...] acute neurological disease, and persistent tachyarrhythmia.URINALYSIS W/ [id number] 06:35:00 Test Item Value Reference Range Interpretation [...] 517) SOURCE(BEAKER) (test code = Urine, [place] 8284) [id number] 06:07:00 Test Item Value Reference Range Interpretation Comments MAGNESIUM (BEAKER) (test code = 1.8 mg/dL 1.6-2.6 627) [id number] 05:32:00 Test Item Value Reference Range Interpretation Comments MAGNESIUM (BEAKER) (test code = 2.5 mg/dL 1.6-2.6 627) COMPREHENSIVE METABOLIC [id number] 05:32:00 Test Item Value Reference Range Interpretation [...] NOT APPLICABLE FOR DIALYSIS PATIEN TS. PROTHROMBIN [id number] 05:10:00 Test Item Value Reference Range Interpretation [...] mechanical heart valves.CBC W/PLT COUNT & AUTO [id number] 05:03:00 Test Item Value Reference Range Interpretation [...] 0-1 PERCENT (BEAKER) (test code = 2801) [id number] 02:52:00 Test Item Value Reference Range Interpretation Comments PROCALCITONIN (BEAKER) (test code 0.41 ng/mL <0.05 H = 3036) SEPSIS RISK (ng/mL)Low: 0.05-0.50Intermediate: 0.51-2.00High: >=2.01LACTIC ACID, VENOUS, WHOLE [id number] 02:06:00 Test Item Value Reference Range Interpretation Comments LACTATE BLOOD VENOUS 1.3 mmol/L 0.5-2.2 Specime n slightly (2) (BEAKER) (test hemolyzed code = 2872) Effective 01/07/2016: Units/Reference Range ChangeNew: 0.5-2.2 mmol/L Previous: 5- 20 mg/dLCOMPREHENSIVE METABOLIC [id number] 02:06:00 Test Item Value Reference Range Interpretation [...] S NOT APPLICABLE FOR DIALYSIS PATIEN TS. [id number] 02:04:00 Test Item Value Reference Range Interpretation Comments LIPASE (BEAKER) (test code = 749) 730 U/L 8-78 H [id number] 02:04:00 Test Item Value Reference Range Interpretation Comments AMYLASE (BEAKER) (test code = 349) 226 U/L 25-125 H PROTHROMBIN [id number] 01:45:00 Test Item Value Reference Range Interpretation Comments PROTIME (BEAKER) (test code = 23.9 seconds 11.7-14.7 H 759) INR (BEAKER) (test code = 370) 2.1 <=5.9 RECOMMENDED COUMADIN/WARFARIN INR THERAPY RANGESSTANDARD DOSE: 2.0 - 3.0 Includes: PROPHYLAXIS for venous thrombosis, systemic embolization; TREATMENT for venous thrombosis and/or pulmonary embolus.HIGH RISK: Target INR is 2.5-3.5 for patients with mechanical heart valves.[id number] 01:45:00 Test Item Value Reference Range Interpretation Comments PARTIAL THROMBOPLASTIN TIME 32.4 seconds 22.5-36.0 (BEAKER) (test code = 760) CBC W/PLT COUNT & AUTO [id number] 01:38:00 Test Item Value Reference Range Interpretation [...] % 0-1 PERCENT (BEAKER) (test code = 9359)
[2023-07-16 14:49] LABS: Absolute Lymphocytes (CBC) 0.5 K/uL (0.7-4.9); Hematocrit 40.8 % (36.0-45.0); Lymphocytes % 8.4 % (15.3-44.8); MCV 92.8 fL (80-100); MPV 8.5 fL (7.6-11.3); Platelets 117 thou/uL (152-406)
[2023-07-16 15:07] LABS: Albumin 3.1 g/dL (3.4-5.0); Bilirubin Total 0.8 mg/dL (0.2-1.0); Potassium 3.1 mEq/L (3.5-5.1); Protein, Total 6.6 g/dL (6.4-8.2)
[2023-07-16] MEDS ORDERED: ONDANSETRON 4 MG/2 ML VIAL ONE (15:49)
[2023-07-16] MEDS ORDERED: NA CHLORIDE 0.9% 1,000 ML ONE (15:49)
[2023-07-16] MEDS ORDERED: MORPHINE 4 MG/ML SYR ONE (15:49)
[2023-07-16 16:25] LABS: Specific Gravity 1.008 (1.005-1.030); Urine Bilirubin NEGATIVE (Negative); Urine Blood Negative (Negative); Urine Clarity Clear (Clear); Urine Color Dark-Yellow (Yellow); Urine Glucose NEGATIVE (Negative); Urine Protein NEGATIVE (Negative); Urine Urobilinogen Normal (Normal); Urine pH 6.5 (5.0-7.0)
--- NOTE | 2023-07-16 16:46 | RAD REPORT ---
EXAM DESCRIPTION: CT - Abdomen Pelvis W Contrast - 07/16/2023 3:46 pm CLINICAL HISTORY: ABD PAIN COMPARISON: Abdomen Pelvis W Contrast dated 07/09/2023; Abdomen Pelvis W Contrast dated 02/05/2023; Abdomen Pelvis W Contrast dated 12/12/2022; Abdomen Pelvis W Contrast dated 08/07/2021 TECHNIQUE: Thin cut axial CT imaging of the abdomen and pelvis was performed following intravenous a dministration of 100 mL Isovue 300. Multiplanar reformats were generated and reviewed. All CT scans are performed using dose optimization technique as appropriate and may include automated exposure control or mA/KV adjustment according to patient size. FINDINGS: No suspicious findings in the lung bases. The liver shows stable small fluid density well-circumscribed parenchymal lesions the largest in the subcapsular inferior left lobe measuring 2.3 cm, and another 2 cm right hepatic dome subcapsular lesi on. These are most likely suggestive of cysts. Spleen, adrenal glands, and pancreas show no suspiciou s findings. Gallbladder was surgically removed. Stable prominent common bile duct correlating to post cholecystectomy status. IVC filter in place. Symmetric renal function is seen. Interval development of moderate hydroureteronephrosis worse on the right. There is relative decompression at the level of the left pelviureteric junction, with moderat joann extensive free fluid in the left retroperitoneal at that level and extending caudally. Minimal ur othelial enhancement along that segment of the proximal ureter. No radiopaque calculi. No dilated bowel loops or bowel wall thickening. Colonic diverticulosis. No free air, free fluid or i nflammatory stranding. No hernia, mass or bulky lymphadenopathy. The urinary bladder is moderately distended. No bladder calculi. Lobulated fluid density structure along the right paraspinous soft tissues at the level of L5 is stab le measuring 2.6 cm, most suggestive of perineural cysts. Multilevel vertebral compression deformitie s with sequelae of vertebral augmentation at L3 and L4. No other acute osseous abnormality. IMPRESSION: Bilateral moderate hydroureteronephrosis. Relative decompression at the level of the left pelviureteric junction with adjacent moderately exten sive fluid in the retroperitoneum tracking caudally. Findings raise concern for focal rupture or urin e leak. No evidence of obstructing calculi. Other incidental findings as above. The findings were communicated to Siena Acosta on 07/16/2023 at 16:36 hours.
--- NOTE | 2023-07-16 17:10 | ER ---
Nurse's Notes [facility] Name: Emelia Payan Age: 82 yrs Sex: Female : 1940 Arrival Date: 07/16/2023 Time: 13:59 Bed 5 Private MD: Diagnosis: urinary retention with left ureteral rupture Presentation: 07/16 14:10 Chief complaint: EMS states: Lower abdominal pain x 5 days, urinary urgency and hb frequency since yesterday. 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 Coronavirus screen: At this time, the client does not indicate any symptoms associated with coronavirus-19. Ebola Screen: No symptoms or risks identified at this time. Initial Sepsis Screen: Does the patient meet any 2 criteria? No. Patient's initial sepsis screen is negative. Does the patient have a suspected source of infection? No. Patient's initial sepsis screen is negative. Risk Assessment: Do you want to hurt yourself or someone else? Patient reports no desire to harm self or others. Onset of symptoms was July 11, 2023. 14:10 Method Of Arrival: EMS: [facility] hb 14:10 Acuity: EDIS 3 hb Historical: - Allergies: 14:15 Bactrim; hb 14:15 Cipro; hb 14:15 Xarelto; hb 14:15 Zosyn; hb - PMHx: 14:15 adrenal insuficiency; Anxiety; Atrial Fib; CHF; CVA; Diabetes - IDDM; DVT; hb Hyperlipidemia; Hypertension; Hypothyroidism; L groin blood clot; lymphedema; Pancreatitis; - PSHx: 14:15 filter; hb - Immunization history:: Adult Immunizations up to date. - Social history:: Smoking status: Patient denies any tobacco usage or history of. Screenin:45 [facility] ED Fall Risk Assessment (Adult) History of falling in the last 3 months, ss including since admission No falls in past 3 months (0 pts). Abuse screen: Denies threats or abuse. Denies injuries from another. Nutritional screening: No deficits noted. Tuberculosis screening: Never had TB. Assessment: 14:45 General: Appears uncomfortable, Behavior is calm, cooperative. Pain: Complains of pain ss in suprapubic area Pain currently is 8 out of 10 on a pain scale. Quality of pain is described as pressure, Is continuous. Neuro: Level of Consciousness is awake, alert, obeys commands. Respiratory: Airway is patent Respiratory effort is even, unlabored, Respiratory pattern is regular, symmetrical. GI: Patient currently denies nausea, vomiting. : Reports urinary frequency. Derm: Skin is intact, is healthy with good turgor, Skin is pink, warm \T\ dry. normal. 16:34 Reassessment: Pt reports feeling better after straight cath. 950 mL of clear yellow ss urine collected. Sample sent to lab. 19:03 Reassessment: flagyl infusing. Will scan bladder prior to discharge home. ss 20:48 GI: Bowel sounds present X 4 quads. Abd is soft X 4 quads Abdomen is tender to rv palpation in left lower quadrant. Vital Signs: 14:10 BP 160 / 127; Pulse 86; Resp 16; Temp 98.7(O); Pulse Ox 98% on R/A; Weight 67 kg; hb Height 5 ft. 4 in. ; Pain 8/10; 16:14 Pulse Ox 99% ; ss 16:33 BP 170 / 91; Pulse 90; Resp 16; Pulse Ox 98% ; ss 19:03 BP 164 / 93; Pulse 91; Resp 17; Pulse Ox 97% on R/A; ss 20:50 BP 164 / 83; Pulse 86; Resp 16; Temp 98; Pulse Ox 99% on R/A; rv 14:10 Body Mass Index 25.35 (67.00 kg, 162.56 cm) hb 14:10 Pain Scale: Adult hb ED Course: 14:05 Patient arrived in ED. sb4 14:05 [facility]ien[facility] sb4 14:05 Marcel Morgan MD is Attending Physician. sb4 14:15 Triage completed. hb 14:18 Arm band placed on. hb 15:26 Inserted saline lock: 22 gauge in right forearm, using aseptic technique. em1 15:33 Paty Lee, ODILON is Primary Nurse. ss 15:48 CT Abd/Pelvis - IV Contrast Only In Process Unspecified. EDMS 17:10 initiated a transfer with the [facility] transfer center at the request of the patient. eb 17:[address] Ray the urologist aoc airspace control officer for [facility] with Siena boss for patient transfer consultation. 17:21 Ralph Sutton MD is Referral Physician. sb4 19:00 Urine collected: straight cath specimen, clear, Amount Returned: 950mL. ss 19:08 Bladder scan completed. 763 mL NATALIA Mayer notified. ss 19:15 reinitiating transfer with [facility] transfer [place]. connected Dr. Ray the urologist juanita aoc airspace control officer for [facility] with Leyla Heredia for transfer consultation again. 19:20 Casas cath inserted, using sterile technique, 16 Fr., by me, balloon inflated, to rv gravity drainage. 19:23 initiated transfer with [facility]. Spoke with Tracy. grant 20:13 reached out to [facility] to get an update on pt. transfer. They are juanita still waiting to hear back from the Urologist aoc airspace control officer Dr. Vidal. 20:25 Jackelin from [facility] returned call to initiate Doc to Doc with Dr. juanita Vidal the urologist and Leyla HEREDIA for patient transfer consultation. 20:42 Ralph Sutton MD is Referral Physician. sb4 20:48 No provider procedures requiring assistance completed. IV discontinued, intact, rv bleeding controlled, No redness/swelling at site. Pressure dressing applied. 20:49 Patient has correct armband on for positive identification. Provided Education on: rv casas catheter care. Administered Medications: 15:47 Drug: NS 0.9% IV 1000 ml IV at 1 bolus Per protocol; 1000 mL bolus Route: IV; Rate: 1 ss bolus; Site: right wrist; 19:34 Follow up: IV Status: Completed infusion; IV Intake: 1000ml rv 15:47 Drug: Ondansetron IVP 4 mg IVP once; over 2 minutes Route: IVP; Site: right wrist; ss 19:34 Follow up: Response: No adverse reaction rv 15:47 Drug: morphine IVP or IV 4 mg IVP once over 4 mins Route: IVP; Infused Over: 4 mins; ss Site: right wrist; 19:34 Follow up: Response: No adverse reaction rv 18:20 Drug: Rocephin IV 1 grams IV at calculated rate once; Given slow IV push per pharmacy ss instructions Route: IV; Rate: calculated rate; Site: right forearm; 18:40 Follow up: IV Intake: 50ml ss 19:34 Follow up: Response: No adverse reaction; IV Status: Completed infusion rv 18:45 Drug: metroNIDAZOLE IVPB 500 mg 100 ml IVPB at 200 ml/hr once over 30 mins Volume: 100 ss ml; Route: IVPB; Rate: 200 ml/hr; Infused Over: 30 mins; Site: right antecubital; 19:34 Follow up: IV Status: Completed infusion; IV Intake: 100ml rv 19:47 Drug: fentaNYL (PF) IVP 25 mcg IVP once Route: IVP; Site: right forearm; rv 20:48 Follow up: Response: No adverse reaction rv 19:57 Not Given (Physician Discretion): hydromorphone0.5 mg IVP once sb4 Medication: 14:45 VIS not applicable for this client. ss Intake: 18:40 IV: 50ml; Total: 50ml. ss 19:34 IV: 100ml; Total: 150ml. rv 19:34 IV: 1000ml; Total: 1150ml. rv Outcome: 17:10 ER care complete, transfer ordered by MD. sb4 17:21 Discharge ordered by MD. sb4 19:16 ER care complete, transfer ordered by MD. sb4 20:43 Discharge ordered by MD. sb4 20:49 Discharged to home ambulatory, with family, rv 20:49 Condition: good 20:49 Discharge instructions given to patient, Instructed on discharge instructions, follow up and referral plans. Demonstrated understanding of instructions, follow-up care, 20:50 Patient left the ED. rv Signatures: Dispatcher [employer] Dino Nguyen em1 Paty Lee RN RN Leslie Kellogg RN RN Yolanda Lopez Ronaldo, RN RN rv Siena Acosta PA-C PADejan sb4 Kellie Reyes Corrections: (The following items were deleted from the chart) 20:27 20:24 Diet: 12 jr12
--- NOTE | 2023-07-16 17:10 | EDPHYS ---
Physician Documentation [facility] Name: Emelia Payan Age: 82 yrs Sex: Female : 1940 Arrival Date: 07/16/2023 Time: 13:59 Bed 5 Private MD: ED Physician Marcel Morgan HPI: 07/16 14:18 This 82 yrs old Female presents to ER via EMS with complaints of Abdominal Pain. sb4 14:18 The patient presents with abdominal pain in the lower abdomen. Onset: The sb4 symptoms/episode began/occurred 3 week(s) ago. The symptoms do not radiate. Associated signs and symptoms: Pertinent positives: urinary frequency. The symptoms are described as vague. Modifying factors: The symptoms are alleviated by nothing, the symptoms are aggravated by pressure. Severity of pain: At its worst the pain was a 10 / 10 in the emergency department the pain is unchanged. The patient has been recently been admitted at [facility], was discharged earlier this week. Historical: - Allergies: 14:15 Bactrim; hb 14:15 Cipro; hb 14:15 Xarelto; hb 14:15 Zosyn; hb - PMHx: 14:15 adrenal insuficiency; Anxiety; Atrial Fib; CHF; CVA; Diabetes - IDDM; DVT; hb Hyperlipidemia; Hypertension; Hypothyroidism; L groin blood clot; lymphedema; Pancreatitis; - PSHx: 14:15 filter; hb - Immunization history:: Adult Immunizations up to date. - Social history:: Smoking status: Patient denies any tobacco usage or history of. ROS: 14:18 Constitutional: Negative for fever, chills, and weight loss, sb4 14:18 Abdomen/GI: Positive for abdominal pain, 14:18 : Positive for urinary frequency, 14:18 All other systems are negative, Exam: 14:18 Constitutional: This is a well developed, well nourished patient who is awake, alert, sb4 and in no acute distress. Head/Face: Normocephalic, atraumatic. Eyes: Extra-ocular motions intact. Periorbital areas with no swelling, redness, or edema. ENT: Mucous membranes moist. Cardiovascular: Regular rate and rhythm with a normal S1 and S2. Respiratory: Lungs have equal breath sounds bilaterally, clear to auscultation and percussion. No rales, rhonchi or wheezes noted. No increased work of breathing, no retractions or nasal flaring. Skin: Warm, dry with normal turgor. Normal color with no rashes, no lesions, and no evidence of cellulitis. MS/ Extremity: Pulses equal, no cyanosis. Neurovascular intact. Full, normal range of motion. 14:18 Abdomen/GI: Inspection: abdomen appears normal, Bowel sounds: normal, Palpation: soft, moderate abdominal tenderness, in the suprapubic area, Vital Signs: 14:10 BP 160 / 127; Pulse 86; Resp 16; Temp 98.7(O); Pulse Ox 98% on R/A; Weight 67 kg; hb Height 5 ft. 4 in. ; Pain 8/10; 16:14 Pulse Ox 99% ; ss 16:33 BP 170 / 91; Pulse 90; Resp 16; Pulse Ox 98% ; ss 19:03 BP 164 / 93; Pulse 91; Resp 17; Pulse Ox 97% on R/A; ss 20:50 BP 164 / 83; Pulse 86; Resp 16; Temp 98; Pulse Ox 99% on R/A; rv 14:10 Body Mass Index 25.35 (67.00 kg, 162.56 cm) hb 14:10 Pain Scale: Adult hb MDM: 14:05 Patient medically screened. 4 14:18 Differential diagnosis: diverticulitis, non-specific abd pain, urinary tract infection. sb4 17:08 Data reviewed: vital signs, nurses notes, lab test result(s), radiologic studies, I sb4 have discussed the patient's presentation/case with the attending Emergency Department Physician;. Consideration of Admission/Observation Patient was admitted/placed on observation. Care significantly affected by the following chronic conditions: Diabetes, Hypertension. Counseling: I had a detailed discussion with the patient and/or guardian regarding the historical points, exam findings, and any diagnostic results supporting the discharge/admit diagnosis, the presence of at least one elevated blood pressure reading (>120/80) during this emergency department visit, lab results, radiology results, the need to transfer to another facility, for higher level of care, [facility] does not immediately have the required specialist. 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 ED course: patient feels better after straight cath, now voiding appropriately, can follow up with urology outpatient. will dc patient home. 20:15 ED course: patient unable to void. bladder scanner showing 750 ml. casas catheter sb4 placed. transfer reinitiated to [facility], Dr. Ray declined, stated not an emergency. re initiating to [facility]. 20:45 ED course: [facility] urologist declined, stated not an emergent issue. can be discharged sb4 with leg bag and follow up with urology for urinary retention workup. 07/16 14:16 Order name: CBC with Diff; Complete Time: 15:00 sb4 07/16 14:16 Order name: CMP; Complete Time: 15:09 sb4 07/16 14:16 Order name: Lipase; Complete Time: 15:09 sb4 07/16 14:16 Order name: Urinalysis w/ reflexes; Complete Time: 16:27 sb4 07/16 16:54 Order name: Blood Culture Adult (2) sb4 07/16 16:54 Order name: Lactate w/ 2H reflex if indic.; Complete Time: 17:51 sb4 07/16 16:57 Order name: PT-INR; Complete Time: 17:37 sb4 07/16 14:16 Order name: CT Abd/Pelvis - IV Contrast Only; Complete Time: 16:47 sb4 07/16 14:16 Order name: IV Saline Lock; Complete Time: 15:26 sb4 07/16 14:16 Order name: Labs collected and sent; Complete Time: 15:26 sb4 07/16 19:14 Order name: Casas; Complete Time: 19:47 sb4 07/16 20:44 Order name: Leg Bag; Complete Time: 20:48 sb4 Administered Medications: 15:47 Drug: NS 0.9% IV 1000 ml IV at 1 bolus Per protocol; 1000 mL bolus Route: IV; Rate: 1 ss bolus; Site: right wrist; 19:34 Follow up: IV Status: Completed infusion; IV Intake: 1000ml rv 15:47 Drug: Ondansetron IVP 4 mg IVP once; over 2 minutes Route: IVP; Site: right wrist; ss 19:34 Follow up: Response: No adverse reaction rv 15:47 Drug: morphine IVP or IV 4 mg IVP once over 4 mins Route: IVP; Infused Over: 4 mins; ss Site: right wrist; 19:34 Follow up: Response: No adverse reaction rv 18:20 Drug: Rocephin IV 1 grams IV at calculated rate once; Given slow IV push per pharmacy ss instructions Route: IV; Rate: calculated rate; Site: right forearm; 18:40 Follow up: IV Intake: 50ml ss 19:34 Follow up: Response: No adverse reaction; IV Status: Completed infusion rv 18:45 Drug: metroNIDAZOLE IVPB 500 mg 100 ml IVPB at 200 ml/hr once over 30 mins Volume: 100 ss ml; Route: IVPB; Rate: 200 ml/hr; Infused Over: 30 mins; Site: right antecubital; 19:34 Follow up: IV Status: Completed infusion; IV Intake: 100ml rv 19:47 Drug: fentaNYL (PF) IVP 25 mcg IVP once Route: IVP; Site: right forearm; rv 20:48 Follow up: Response: No adverse reaction rv 19:57 Not Given (Physician Discretion): hydromorphone0.5 mg IVP once sb4 Disposition Summary: 07/16/23 20:43 Discharge Ordered Notes: Location: Home(07/16/23 20:43) sb4 Problem: new(07/16/23 20:43) sb4 Symptoms: are unchanged(07/16/23 20:43) sb4 Condition: Stable(07/16/23 20:43) sb4 Diagnosis - urinary retention with left ureteral rupture sb4 Followup: sb4 - With: Ralph Sutton MD - When: 2 - 3 days - Reason: Recheck today's complaints, Re-evaluation by your physician Forms: - Medication Reconciliation Form sb4 - Thank You Letter sb4 - Antibiotic Education sb4 - Prescription Opioid Use sb4 - Patient Portal Instructions sb4 - Leadership Thank You Letter sb4 Addendum: 07/19/2023 07:24 I was immediately available for consultation during this patient's visit. I did not e c2 personally see the patient or guide the patient's care.. Signatures: Dispatcher [employer] Paty Mayo RN RN Leslie Kellogg RN RN Lee Delgado RN RN rv Siena Acosta PA-C PAJuan MiguelC sb4 Marcel Morgan MD MD ec2 Corrections: (The following items were deleted from the chart) 07/16 17:18 17:10 urology sb4 sb4 17:18 17:10 [facility] sb4 sb4 17:18 17:10 Higher level of care sb4 sb4 17:18 17:10 Fair sb4 sb4 17:18 17:10 new sb4 sb4 17:18 17:10 have improved sb4 sb4 17:18 17:10 ureteral rupture, left sb4 sb4 19:14 17:21 Home sb4 sb4 19:14 17:21 new sb4 sb4 19:14 17:21 have improved sb4 sb4 19:14 17:21 Stable sb4 sb4 19:14 17:21 urinary retention with left ureteral rupture, resolved sb4 sb4 20:25 20:15 ED course: patient unable to void. bladder scanner showing 750 ml. casas catheter sb4 placed. transfer reinitiated. sb4 20:42 19:16 urology sb4 sb4 20:42 19:16 [facility] sb4 sb4 20:42 19:16 Higher level of care sb4 sb4 20:42 19:16 Fair sb4 sb4 20:42 19:16 new sb4 sb4 20:42 19:16 are unchanged sb4 sb4 20:42 19:16 urinary retention with left ureteral rupture sb4 sb4
[2023-07-16 17:27] LABS: Protime INR 1.44
[2023-07-16] MEDS ORDERED: CEFTRIAXONE 1000 MG/VIAL ONE (17:40)
[2023-07-16] MEDS ORDERED: METRONIDAZOLE 500mg IVPB 0 MG/0 ML BAG IV ONE (17:40)
[2023-07-16] MEDS ORDERED: METRONIDAZOLE 500mg IVPB 500 MG/100 ML BAG IV ONE (17:42)
[2023-07-16] MEDS ORDERED: NA CHLORIDE 0.9% 50 ML ONE (17:42)
[2023-07-16] MEDS ORDERED: FENTANYL CITR 100 MCG/2 ML ONE (19:58)
[2023-07-16 21:23] VITALS: BP 164/83; TEMP 98; O2SAT 99
== END 2023-07-16 20:50 | disposition home or self-care (01) ==
LOC: ER 13:59
DX: S37.19XA Other injury of ureter, initial encounter (principal); R33.9 Retention of urine, unspecified
CPT/HCPCS: 87040 ×2; 85025; 36415; 85610; 83605; 81003; 83690; 80053; 74177; 51702; 99285; Q9967; J3010; J2405; J7030; J0696

== ENCOUNTER → 2023-08-27 | Emergency (ER) | payer OTHER ==
[~2023-08-27] MED LIST changes: +FENTANYL CITR 100 MCG/2 ML ONE; -LIOTHYRONINE SOD 5 MCG TAB PO SCH; +dexAMETHasone 10 MG/ML VIAL ONE
--- NOTE | 2023-08-27 14:47 | RAD REPORT ---
EXAM DESCRIPTION: CT - Head C Spine Mpr Wo Con - 08/27/2023 2:28 pm CLINICAL HISTORY: Head and neck injury.. Head and neck pain COMPARISON: 2016 TECHNIQUE: Computed axial tomography of the head and cervical spine was obtained. Sagittal and coronal reconstruction was performed. All CT scans are performed using dose optimization technique as appropriate and may include automated exposure control or mA/KV adjustment according to patient size. FINDINGS: An intracranial bleed is not seen. The ventricles are normal in caliber. No significant hypodensity within the brain. An extra-axial fluid collection is not noted. 12 millimeter calcified extra-axial mass right frontal convexity consistent with a meningioma. No jimy rounding edema Chronic sphenoid and ethmoid sinusitis A cervical fracture is not visualized. No dislocation is noted. Moderate to large calcified right paracentral disc osteophyte complex C3-4 compresses spinal cord. Prominent spondylosis cervical spine Mild anterior subluxation C3 on C4. Mild to moderate anterior subluxation C4 on C5. Both are chronic IMPRESSION: No acute intracranial abnormality is seen. A cervical fracture is not visualized. Moderate to large calcified right paracentral disc osteophyte complex C3-4 If the patient continues to have symptoms to suggest intracranial /spinal cord pathology then MRI wou ld be recommended
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
--- NOTE | 2023-08-27 16:14 | ER ---
Nurse's Notes [facility] Name: Emelia Payan Age: 83 yrs Sex: Female : 1940 Arrival Date: 08/27/2023 Time: 12:49 Bed 21 Private MD: Diagnosis: Other cervical disc degeneration;Cervicalgia Presentation: 08/27 13:51 Chief complaint: Patient states: NECK PAIN X3 MONTHS. ITS GETTING WORSE. WAS SEEN BY A j7 DR WHO RECOMMENDED A MRI AND A PAIN SPECIALIST. DR MOVED [employer] AND THEIR INSURANCE DENIES THE MRI. Coronavirus screen: At this time, the client does not indicate any symptoms associated with coronavirus-19. Ebola Screen: No symptoms or risks identified at this time. Initial Sepsis Screen: Does the patient meet any 2 criteria? No. Patient's initial sepsis screen is negative. Does the patient have a suspected source of infection? No. Patient's initial sepsis screen is negative. Risk Assessment: Do you want to hurt yourself or someone else? Patient reports no desire to harm self or others. 13:51 Method Of Arrival: Wheelchair [facility] 13:51 Acuity: EDIS 3 j7 16:56 Onset of symptoms is unknown. ap3 Triage Assessment: 13:57 General: Appears in no apparent distress. uncomfortable, Behavior is calm, cooperative, jj7 appropriate for age. Pain: Complains of pain in neck. Musculoskeletal: Reports pain in neck. Historical: - Allergies: 13:57 Bactrim; jj7 13:57 Cipro; jj7 13:57 Xarelto; jj7 13:57 Zosyn; jj7 - PMHx: 13:57 adrenal insuficiency; Anxiety; Atrial Fib; CVA; CHF; DVT; Diabetes - IDDM; jj7 Hyperlipidemia; Hypertension; Hypothyroidism; L groin blood clot; lymphedema; Pancreatitis; - PSHx: 13:57 HEART STENTS (Pancreatitis); RIGHT LEG (Pancreatitis); jj7 - Immunization history:: Adult Immunizations up to date. - Social history:: Smoking status: Patient denies any tobacco usage or history of. Patient/guardian denies using alcohol, street drugs. Screenin:55 [facility] ED Fall Risk Assessment (Adult) Confusion or Disorientation No (0 pts). Abuse ap3 screen: Denies threats or abuse. Nutritional screening: No deficits noted. Tuberculosis screening: No symptoms or risk factors identified. Assessment: 16:55 Neuro: ap3 Vital Signs: 13:51 BP 136 / 93; Pulse 66; Resp 20; Temp 98; Pulse Ox 99% ; Weight 56.25 kg; Height 5 ft. 4 j in. ; Pain 9/10; 16:56 Pulse 68; Resp 17; Pulse Ox 98% ; ap3 13:51 Body Mass Index 21.28 (56.25 kg, 162.56 cm) [facility] 13:51 Pain Scale: Adult [facility] ED Course: 12:52 Patient arrived in ED. ts1 13:43 Jose Elias Gamboa PA is PHCP. cp 13:44 Jose Elias Marquez MD is Attending Physician. cp 13:57 Triage completed. [facility] 13:57 Arm band placed on right wrist. [facility] 14:27 CT Head C Spine In Process Unspecified. EDMS 16:09 Lisandro Lo MD is Referral Physician. cp 16:55 No provider procedures requiring assistance completed. Patient did not have IV access ap3 during this emergency room visit. 16:56 Provided Education on: discharge instructions. ap3 16:56 Patient has correct armband on for positive identification. Adult w/ patient. ap3 Administered Medications: 16:43 Drug: fentaNYL (PF) IM 25 mcg IM once Route: IM; Site: left deltoid; ap3 16:58 Follow up: Response: No adverse reaction; Pain is decreased ap3 16:43 Drug: Dexamethasone IM 10 mg IM once Route: IM; Site: left deltoid; ap3 16:58 Follow up: Response: No adverse reaction; Pain is decreased ap3 Medication: 16:56 VIS not applicable for this client. ap3 Outcome: 16:13 Discharge ordered by . cp 16:55 Discharged to home via wheelchair, with family, ap3 16:55 Condition: good 16:55 Discharge instructions given to patient, family, Instructed on discharge instructions, follow up and referral plans. medication usage, Demonstrated understanding of instructions, follow-up care, medications, Prescriptions given X 2, 16:58 Patient left the ED. ap3 Signatures: Dispatcher [employer] EDOR Jose Elias Gamboa PA PA cp Prokisch, Amanda, RN RN ap3 Steven Shields RN RN jj7 Sarah Browning [facility] ts1 Corrections: (The following items were deleted from the chart) 13:59 13:57 PSHx: filter; jj7 jj7
[2023-08-27 18:15] VITALS: BP 136/93; TEMP 98
[2023-08-27 18:20] VITALS: O2SAT 98
== END ==
LOC: ER 12:49
DX: M50.30 Other cervical disc degeneration, unspecified cervical region (principal); Z95.818 Presence of other cardiac implants and grafts; Z88.1 Allergy status to other antibiotic agents; Z88.8 Allergy status to other drugs, medicaments and biological substances
CPT/HCPCS: 70450; 72125; 96372; 99284; J3010; J1100

== ENCOUNTER → 2023-10-21 | Emergency (ER) | payer OTHER ==
[~2023-10-21] MED LIST changes: +APIXABAN 5 MG TABLET ONE; +AZITHROMYCIN 250 MG TAB ONE; +CEFTRIAXONE 1000 MG/VIAL ONE; +FAMOTIDINE 20 MG/2 ML VIAL IV ONE; +HYDROCORTISONE SUC 100 MG INJ ONE; +IPRATROPIUM BROM 0.5MG/2.5ML ONE; +KCL 20 MEQ/100 mL IVPB 100 ML IV ONE; +LEVALBUTEROL 1.25 MG/3 ML NEB ONE; +NA CHLORIDE 0.9% 1,000 ML ONE; +NS KCL 20MEQ 1,000 ML IV ONE; +ONDANSETRON 4 MG/2 ML VIAL ONE; +POTASSIUM 25 MEQ EFFERV TAB ONE
[2023-10-21 09:10] LABS: Arterial Blood Carboxyhemoglob 1.3 % (0-1.5); Blood Gas Oxyhemoglobin 96.5 % (94-97); Blood O2 Saturation 99.3 % (92-98.5)
[2023-10-21 09:26] LABS: SARS-CoV-2 Antigen Rapid Res Negative (Negative)
[2023-10-21 09:35] LABS: Absolute Lymphocytes (CBC) 1.8 K/uL (0.7-4.9); Hematocrit 38.5 % (36.0-45.0); Lymphocytes % 28.4 % (15.3-44.8); MCV 97.7 fL (80-100); MPV 7.8 fL (7.6-11.3); Platelets 171 thou/uL (152-406); RBC Red Blood Cell Count 3.94 M/uL (3.86-4.86)
[2023-10-21 09:36] LABS: Protime INR 1.14
[2023-10-21 09:55] LABS: Albumin 3.2 g/dL (3.4-5.0); Bilirubin Direct 0.3 mg/dL (0-0.2); Bilirubin Indirect, Calculated 0.8 mg/dL (0.2-0.8); Bilirubin Total 1.1 mg/dL (0.2-1.0); Potassium 2.7 mEq/L (3.5-5.1); Protein, Total 6.7 g/dL (6.4-8.2); Troponin High Sensitivity 39.1 pg/mL (<58.9)
--- NOTE | 2023-10-21 10:27 | RAD REPORT ---
EXAM DESCRIPTION: CT - Chest For Pe Angio - 10/21/2023 10:14 am CLINICAL HISTORY: Congestion and cough COMPARISON: September 2023 TECHNIQUE: Dynamically enhanced axial 3 mm thick images of the chest were obtained during administra tion of 100 mL Isovue 370 IV contrast. Coronal and oblique reconstruction images were generated and r eviewed. Exam utilizes a protocol for optimal evaluation of pulmonary arterial tree. Maximum intensity projections 3D imaging was utilized All CT scans are performed using dose optimization technique as appropriate and may include automated exposure control or mA/KV adjustment according to patient size. FINDINGS: A pulmonary embolus is not seen. A thoracic aortic aneurysm is not noted. A pleural effusion is not seen. A pericardial effusion is not seen. A lung consolidation is not present. Small lung nodules unchanged probably benign Vertebral spine compression deformities stable IMPRESSION: Negative for a pulmonary embolism.
--- NOTE | 2023-10-21 10:56 | ER ---
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 EMS kc6 states there is swelling in her neck that causing sob and difficulty swallowing. pt reports being on a liquid only diet x1mo. Coronavirus screen: At this time, the client does not indicate any symptoms associated with coronavirus-19. Ebola Screen: No symptoms or risks identified at this time. Initial Sepsis Screen: Does the patient meet any 2 criteria? No. Patient's initial sepsis screen is negative. Does the patient have a suspected source of infection? No. Patient's initial sepsis screen is negative. Risk Assessment: Do you want to hurt yourself or someone else? Patient reports no desire to harm self or others. Onset of symptoms was October 21, 2023. 08:40 Method Of Arrival: EMS: [facility] kc6 08:40 Acuity: EDIS 3 kc6 Triage Assessment: 08:42 General: Appears in no apparent distress. comfortable, well groomed, well developed, kc6 Behavior is calm, cooperative, appropriate for age. Pain: Complains of pain in neck. EENT: Reports difficulty swallowing. Neuro: Level of Consciousness is awake, alert, obeys commands, Oriented to person, place, time, situation, Appropriate for age. Cardiovascular: Capillary refill < 3 seconds. Respiratory: Reports shortness of breath Airway is patent Trachea midline Respiratory effort is even, unlabored, Respiratory pattern is regular, symmetrical, Onset: The symptoms/episode began/occurred this morning, the patient has mild shortness of breath. GI: No signs and/or symptoms were reported involving the gastrointestinal system. : Taylor in place to gravity drainage clamped Urine is clear. Derm: No signs and/or symptoms reported regarding the dermatologic system. Skin is intact, is healthy with good turgor, Skin is pink, warm \T\ dry. Musculoskeletal: No signs and/or symptoms reported regarding the musculoskeletal system. Circulation, motion, and sensation intact. Capillary refill < 3 seconds, Range of motion: intact in all extremities. Historical: - Allergies: 08:42 Bactrim; kc6 08:42 Cipro; kc6 08:42 Xarelto; kc6 08:42 Zosyn; kc6 - PMHx: 08:42 adrenal insuficiency; Anxiety; Atrial Fib; CHF; CVA; Diabetes - IDDM; DVT; kc6 Hyperlipidemia; Hypertension; Hypothyroidism; L groin blood clot; lymphedema; Pancreatitis; - PSHx: 08:42 Heart Stents; right leg; kc6 - Immunization history:: Adult Immunizations up to date. - Social history:: Smoking status: Patient denies any tobacco usage or history of. Screenin:44 [facility] ED Fall Risk Assessment (Adult) History of falling in the last 3 months, kc6 including since admission No falls in past 3 months (0 pts) Confusion or Disorientation No (0 pts) Intoxicated or Sedated No (0 pts) Impaired Gait No (0 pts) Mobility Assist Device Used No (0 pt) Altered Elimination No (0 pt) Score/Fall Risk Level 0 - 2 = Low Risk. Abuse screen: Denies threats or abuse. Denies injuries from another. Nutritional screening: No deficits noted. Tuberculosis screening: No symptoms or risk factors identified. Assessment: 08:44 Reassessment: please see triage assessment. kc 09:44 Reassessment: Patient appears in no apparent distress at this time. No changes from 6 previously documented assessment. Patient and/or family updated on plan of care and expected duration. Pain level reassessed. Patient is alert, oriented x 3, equal unlabored respirations, skin warm/dry/pink. 10:44 Reassessment: Patient appears in no apparent distress at this time. No changes from kc6 previously documented assessment. Patient and/or family updated on plan of care and expected duration. Pain level reassessed. Patient is alert, oriented x 3, equal unlabored respirations, skin warm/dry/pink. 11:44 Reassessment: Patient appears in no apparent distress at this time. No changes from [facility] previously documented assessment. Patient and/or family updated on plan of care and expected duration. Pain level reassessed. Patient is alert, oriented x 3, equal unlabored respirations, skin warm/dry/pink. 12:44 Reassessment: Patient appears in no apparent distress at this time. No changes from kc6 previously documented assessment. Patient and/or family updated on plan of care and expected duration. Pain level reassessed. Patient is alert, oriented x 3, equal unlabored respirations, skin warm/dry/pink. Vital Signs: 08:40 BP 194 / 93; Pulse 71; Resp 16 S; Temp 98.4(O); Pulse Ox 98% on R/A; Weight 52.62 kg kc6 (R); Height 5 ft. 4 in. (R); 10:50 BP 146 / 80; Pulse 69; Resp 16 S; Pulse Ox 100% on R/A; kc6 13:10 BP 190 / 72; Pulse 65; Resp 16 S; Pulse Ox 99% on R/A; kc6 08:40 Body Mass Index 19.91 (52.62 kg, 162.56 cm) [facility] ED Course: 08:40 Patient arrived in ED. kc6 08:41 Jose Elias Marquez MD is Attending Physician. [facility] 08:42 Triage completed. kc6 08:42 Arm band placed on. kc6 08:44 Patient has correct armband on for positive identification. Bed in low position. Call [facility] light in reach. Side rails up X2. Adult w/ patient. Client placed on continuous cardiac and pulse oximetry monitoring. NIBP monitoring applied. 08:44 Patient maintains SpO2 saturation greater than 95% on room air. kc6 08:47 Zonia Serrano, RN is Primary Nurse. kc6 09:02 Flu Sent. kc6 09:02 SARS RAPID Sent. kc6 09:18 Missed attempt(s): 22 gauge in right forearm. antecubital area. Bleeding controlled, aw1 band aid applied, catheter tip intact. 09:32 XRAY Chest (1 view) In Process Unspecified. EDMS 10:16 CT Chest For PE Angio In Process Unspecified. EDMS 11:[address] Marquez called [facility] to start transfer. sp 12:[address] Luna Shields accepted pt to [facility] ED [address] with admin sp approval. [phone]. 14:44 talked with Dino nash [facility] for transfer to [facility]. sp Administered Medications: 09:02 Drug: Levalbuterol Inhalation 2.5 mg Inhalation once Route: Inhalation; kc6 10:50 Follow up: Response: No adverse reaction kc6 09:02 Drug: Ipratropium Inhalation Aerosol 0.5 mg Inhalation once Route: Inhalation; kc6 10:50 Follow up: Response: No adverse reaction kc6 10:49 Drug: Rocephin IV 1 grams IV at per protocol once; Given slow IV push per pharmacy kc6 instructions Route: IV; Rate: per protocol; Site: left antecubital; 10:49 Drug: AZITHromycin PO 500 mg PO once Route: PO; kc6 11:05 Drug: Solu-CORTEF IVP 100 mg IVP once Route: IVP; Site: left antecubital; mb9 11:05 Drug: Eliquis PO 2.5 mg PO once Route: PO; mb9 11:06 Drug: Potassium PO Effervescent Tablet 50 mEq PO once; dissolve in 4 ounces of water or mb9 juice Route: PO; 11:08 Drug: Famotidine IVP 20 mg IVP once; dilute with 10 mL 0.9% NaCl; give over 2 minutes mb9 Route: IVP; Site: left antecubital; 11:12 Drug: NS 0.9% with KCl IV 20 mEq/L 1000 ml IV at 100 ml/hr continuous Route: IV; Rate: mb9 100 ml/hr; Site: left antecubital; 11:13 Drug: Potassium Chloride IV 20 mEq IV at per protocol once; administer over 1-2 hours mb9 Route: IV; Rate: per protocol; Site: left antecubital; 13:07 Drug: Decadron - Dexamethasone IVP 10 mg IVP once Route: IVP; Site: left antecubital; kc6 14:33 Drug: fentaNYL (PF) IVP 50 mcg IVP once Route: IVP; Site: left forearm; hb 14:33 Drug: Ondansetron IVP 4 mg IVP once; over 2 minutes Route: IVP; Site: left antecubital; hb Outcome: 10:55 ER care complete, transfer ordered by MD. macias 14:33 Patient left the ED. hb Signatures: Dispatcher [employer] EDMS JimmyJose Elias MD MD cha Pinkerton, Shawna sp Baxter, Heather, RN RN hb Zonia Serrano RN RN kc6 Polly Willard, RN RN mb9 Violeta Valladares
--- NOTE | 2023-10-21 10:56 | EDPHYS ---
Physician Documentation [facility] Name: Emelia Payan Age: 83 yrs Sex: Female : 1940 Arrival Date: 10/21/2023 Time: 08:38 Bed 4 Private MD: ED Physician Jose Elias Marquez HPI: 10/21 10:44 This 83 yrs old Female presents to ER via EMS with complaints of Difficulty gilberto Swallowing, Shortness Of Breath. 10:44 The patient presents with sore throat. The patient describes throat pain as constant. gilberto Severity of symptoms: At their worst the symptoms were moderate, in the emergency department the symptoms are unchanged. Historical: - Allergies: 08:42 Bactrim; kc6 08:42 Cipro; kc6 08:42 Xarelto; kc6 08:42 Zosyn; kc6 - PMHx: 08:42 adrenal insuficiency; Anxiety; Atrial Fib; CHF; CVA; Diabetes - IDDM; DVT; kc6 Hyperlipidemia; Hypertension; Hypothyroidism; L groin blood clot; lymphedema; Pancreatitis; - PSHx: 08:42 Heart Stents; right leg; kc6 - Immunization history:: Adult Immunizations up to date. - Social history:: Smoking status: Patient denies any tobacco usage or history of. ROS: 10:47 Constitutional: Negative for fever, chills, and weight loss, Eyes: Negative for injury, gilberto pain, redness, and discharge, Neck: Negative for injury, pain, and swelling, Cardiovascular: Negative for chest pain, palpitations, and edema, Respiratory: Negative for shortness of breath, cough, wheezing, and pleuritic chest pain, Abdomen/GI: Negative for abdominal pain, nausea, vomiting, diarrhea, and constipation, Back: Negative for injury and pain, : Negative for injury, bleeding, discharge, and swelling, MS/Extremity: Negative for injury and deformity, Skin: Negative for injury, rash, and discoloration, Neuro: Negative for headache, weakness, numbness, tingling, and seizure, Psych: Negative for depression, anxiety, suicide ideation, homicidal ideation, and hallucinations, Allergy/Immunology: Negative for hives, rash, and allergies, Endocrine: Negative for neck swelling, polydipsia, polyuria, polyphagia, and marked weight changes, Hematologic/Lymphatic: Negative for swollen nodes, abnormal bleeding, and unusual bruising, 10:47 ENT: Positive for difficulty swallowing, Exam: 10:47 Constitutional: This is a well developed, well nourished patient who is awake, alert, gilberto and in no acute distress. Head/Face: Normocephalic, atraumatic. Eyes: Pupils equal round and reactive to light, extra-ocular motions intact. Lids and lashes normal. Conjunctiva and sclera are non-icteric and not injected. Cornea within normal limits. Periorbital areas with no swelling, redness, or edema. ENT: Nares patent. No nasal discharge, no septal abnormalities noted. Tympanic membranes are normal and external auditory canals are clear. Oropharynx with no redness, swelling, or masses, exudates, or evidence of obstruction, uvula midline. Mucous membranes moist. Neck: Trachea midline, no thyromegaly or masses palpated, and no cervical lymphadenopathy. Supple, full range of motion without nuchal rigidity, or vertebral point tenderness. No Meningismus. Chest/axilla: Normal chest wall appearance and motion. Nontender with no deformity. No lesions are appreciated. Cardiovascular: Regular rate and rhythm with a normal S1 and S2. No gallops, murmurs, or rubs. Normal PMI, no JVD. No pulse deficits. Respiratory: Lungs have equal breath sounds bilaterally, clear to auscultation and percussion. No rales, rhonchi or wheezes noted. No increased work of breathing, no retractions or nasal flaring. Abdomen/GI: Soft, non-tender, with normal bowel sounds. No distension or tympany. No guarding or rebound. No evidence of tenderness throughout. Back: No spinal tenderness. No costovertebral tenderness. Full range of motion. Skin: Warm, dry with normal turgor. Normal color with no rashes, no lesions, and no evidence of cellulitis. MS/ Extremity: Pulses equal, no cyanosis. Neurovascular intact. Full, normal range of motion. Neuro: Awake and alert, GCS 15, oriented to person, place, time, and situation. Cranial nerves II-XII grossly intact. Motor strength 5/5 in all extremities. Sensory grossly intact. Cerebellar exam normal. Normal gait. Psych: Awake, alert, with orientation to person, place and time. Behavior, mood, and affect are within normal limits. 10:47 ECG was reviewed by the Attending Physician. 10:53 Radiologist reports: NEG FOR PE gilberto Vital Signs: 08:40 BP 194 / 93; Pulse 71; Resp 16 S; Temp 98.4(O); Pulse Ox 98% on R/A; Weight 52.62 kg kc6 (R); Height 5 ft. 4 in. (R); 10:50 BP 146 / 80; Pulse 69; Resp 16 S; Pulse Ox 100% on R/A; kc6 13:10 BP 190 / 72; Pulse 65; Resp 16 S; Pulse Ox 99% on R/A; kc6 08:40 Body Mass Index 19.91 (52.62 kg, 162.56 cm) kc6 MDM: 08:41 Patient medically screened. [facility] 10:49 Differential diagnosis: bronchitis, CVA, group A strep tonsillitis, influenza, gilberto peritonsillar abscess pharyngitis, upper respiratory infection, viral syndrome. Data reviewed: vital signs, nurses notes, lab test result(s), EKG, radiologic studies, plain films. Consideration of Admission/Observation Escalation of care including admission/observation considered. I considered the following discharge prescriptions or medication management in the emergency department Medications were administered in the Emergency Department. See MAR. Independent interpretation of the following test(s) in the Emergency Department EKG: See my EKG interpretation above. Test considered but Not performed: MRI: NO MRI C SPINE. Care significantly affected by the following chronic conditions: Diabetes, Hypertension, Congestive Heart Failure, A FIB , CHF. 10:52 Historians other than the Patient: Family Member: WELL INFORMED. [facility] 10/21 08:47 Order name: Basic Metabolic Panel; Complete Time: 10:51 [facility] 10/21 08:47 Order name: CBC with Diff; Complete Time: 10:51 [facility] 10/21 08:47 Order name: LFT's; Complete Time: 10:51 [facility] 10/21 08:47 Order name: Magnesium; Complete Time: 10:51 [facility] 10/21 08:47 Order name: NT PRO-BNP; Complete Time: 10:51 [facility] 10/21 08:47 Order name: PT-INR; Complete Time: 10:51 [facility] 10/21 08:47 Order name: Troponin HS; Complete Time: 10:51 [facility] 10/21 08:47 Order name: Blood Culture Adult (2) [facility] 10/21 08:47 Order name: Lactate w/ 2H reflex if indic.; Complete Time: 10:51 [facility] 10/21 08:47 Order name: Urinalysis w/ reflexes; Complete Time: 12:15 [facility] 10/21 08:47 Order name: ABG; Complete Time: 10:51 [facility] 10/21 08:47 Order name: SARS RAPID; Complete Time: 10:51 [facility] 10/21 08:47 Order name: Flu; Complete Time: 10:51 [facility] 10/21 12:04 Order name: Urine Culture [facility] 10/21 08:47 Order name: XRAY Chest (1 view) [facility] 10/21 08:47 Order name: CT Chest For PE Angio; Complete Time: 10:51 [facility] 10/21 08:47 Order name: EKG; Complete Time: 08:47 [facility] 10/21 08:47 Order name: Cardiac monitoring; Complete Time: 10:06 [facility] 10/21 08:47 Order name: EKG - Nurse/Tech; Complete Time: 10:06 [facility] 10/21 08:47 Order name: IV Saline Lock; Complete Time: 10:06 [facility] 10/21 08:47 Order name: Labs collected and sent; Complete Time: 10:06 [facility] 10/21 08:47 Order name: O2 Per Protocol; Complete Time: 08:48 [facility] 10/21 08:47 Order name: O2 Sat Monitoring; Complete Time: 08:48 [facility] 10/21 11:27 Order name: Cervical Collar; Complete Time: 12:00 [facility] EC:47 Rate is 70 beats/min. Rhythm is irregularly irregular. QRS [place] is Normal. IN interval gilberto is normal. QT interval is normal. No Q waves. T waves are Normal. No ST changes noted. Clinical impression: Atrial Flutter and No evidence of ischemia. Interpreted by me. Reviewed by me. Administered Medications: 09:02 Drug: Levalbuterol Inhalation 2.5 mg Inhalation once Route: Inhalation; 6 10:50 Follow up: Response: No adverse reaction [facility] 09:02 Drug: Ipratropium Inhalation Aerosol 0.5 mg Inhalation once Route: Inhalation; kc6 10:50 Follow up: Response: No adverse reaction 6 10:49 Drug: Rocephin IV 1 grams IV at per protocol once; Given slow IV push per pharmacy kc6 instructions Route: IV; Rate: per protocol; Site: left antecubital; 10:49 Drug: AZITHromycin PO 500 mg PO once Route: PO; kc6 11:05 Drug: Solu-CORTEF IVP 100 mg IVP once Route: IVP; Site: left antecubital; mb9 11:05 Drug: Eliquis PO 2.5 mg PO once Route: PO; mb9 11:06 Drug: Potassium PO Effervescent Tablet 50 mEq PO once; dissolve in 4 ounces of water or mb9 juice Route: PO; 11:08 Drug: Famotidine IVP 20 mg IVP once; dilute with 10 mL 0.9% NaCl; give over 2 minutes mb9 Route: IVP; Site: left antecubital; 11:12 Drug: NS 0.9% with KCl IV 20 mEq/L 1000 ml IV at 100 ml/hr continuous Route: IV; Rate: mb9 100 ml/hr; Site: left antecubital; 11:13 Drug: Potassium Chloride IV 20 mEq IV at per protocol once; administer over 1-2 hours mb9 Route: IV; Rate: per protocol; Site: left antecubital; 13:07 Drug: Decadron - Dexamethasone IVP 10 mg IVP once Route: IVP; Site: left antecubital; kc6 14:33 Drug: fentaNYL (PF) IVP 50 mcg IVP once Route: IVP; Site: left forearm; hb 14:33 Drug: Ondansetron IVP 4 mg IVP once; over 2 minutes Route: IVP; Site: left antecubital; hb Disposition Summary: 10/21/23 10:55 Transfer Ordered Notes: Transfer Location: [facility] gilberto Reason: Higher level of care gilberto Condition: Fair gilberto Problem: new gilberto Symptoms: have improved gilberto Accepting Physician: TO [facility] , NEURO(10/21/23 14:33) hb Diagnosis - Functional dyspepsia gilberto - Dysphagia gilberto - Cervical disc disorder with radiculopathy, high cervical region - SEVERE CANAL gilberto STENOSIS, C3-C4 - Chronic atrial fibrillation gilberto - group home (current) use of anticoagulants gilberto - Hypokalemia gilberto - UTI/ Urinary tract infection, site not specified gilberto Forms: - Medication Reconciliation Form gilberto - SBAR form gilberto Signatures: Dispatcher [employer] EDJose Elias Benedict MD MD cha Baxter, Heather, RN RN Zonia Serrano RN RN kc6 Polly Willard RN RN mb9 Corrections: (The following items were deleted from the chart) 10:56 10:55 TO [facility] , NEURO gilberto gilberto 12:18 10:56 TO [facility] , NEURO gilberto gilberto 14:33 12:18 TO [facility] , NEURO gilberto hb
[2023-10-21 12:01] LABS: Specific Gravity 1.027 (1.005-1.030); Urine Bacteria <20 /HPF (<20); Urine Bilirubin NEGATIVE (Negative); Urine Blood Negative (Negative); Urine Clarity Turbid (Clear); Urine Color Light-Yellow (Yellow); Urine Glucose NEGATIVE (Negative); Urine Mucus Slight /HPF (None Seen); Urine Protein TRACE (Negative); Urine RBC <5 /HPF (None Seen); Urine Urobilinogen Normal (Normal); Urine WBC Clump Rare /HPF (None Seen)
--- NOTE | 2023-10-21 12:37 | RAD REPORT ---
EXAM DESCRIPTION: [place] Single View10/21/2023 9:30 am CLINICAL HISTORY: Cough COMPARISON: September 2023 FINDINGS: The lungs appear clear of acute infiltrate. The heart is normal size IMPRESSION: No acute abnormalities displayed
[2023-10-21 14:59] VITALS: BP 190/72; TEMP 98.4; O2SAT 99
--- NOTE | 2023-10-24 11:05 | EKG ---
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
== END ==
LOC: ER 08:38
DX: K30 Functional dyspepsia (principal); N39.0 Urinary tract infection, site not specified; E87.6 Hypokalemia; M50.11 Cervical disc disorder with radiculopathy, high cervical region; I48.20 Chronic atrial fibrillation, unspecified; Z79.01 Long term (current) use of anticoagulants; Z11.52 Encounter for screening for COVID-19; Z88.1 Allergy status to other antibiotic agents; Z88.8 Allergy status to other drugs, medicaments and biological substances
CPT/HCPCS: 87040 ×2; 87088; 85025; 81001; 87086; 80048; 36415; 83735; 85610; 80076; 83605; 87077 ×3; 87186 ×3; 84484; 83880; 87804 ×2; 71275; 71045; 82805; 99285; 87811; Q9967; J3480 ×2; J7614; J7644; J3010; J1100; J1720; J2405; J7030; J0696; 93005

== ENCOUNTER → 2023-10-22 | Emergency (ER) | payer OTHER ==
--- NOTE | 2023-10-22 17:37 | EDPHYS ---
Physician Documentation [facility] Name: Emelia Payan Age: 83 yrs Sex: Female : 1940 Arrival Date: 10/22/2023 Time: 16:43 Bed 14 Private MD: ED Physician Jose Elias Marquez HPI: 10/22 17:34 This 83 yrs old Female presents to ER via Unassigned with complaints of Problem With sb4 Urinary Catheter. 17:34 patient states her casas catheter fell out this afternoon. it was placed earlier this sb4 afternoon and she believes the leg bag was taped too far down her leg which caused it to be pulled out. she has no complaints at this time. patient states that she has had an indwelling casas catheter since July and is followed by Dr. Sutton. Historical: - Allergies: 17:49 Bactrim; ko1 17:49 Cipro; ko1 17:49 Xarelto; ko1 17:49 Zosyn; ko1 - PMHx: 17:49 adrenal insuficiency; Anxiety; Atrial Fib; CHF; CVA; Diabetes - IDDM; DVT; ko1 Hyperlipidemia; Hypertension; Hypothyroidism; L groin blood clot; lymphedema; Pancreatitis; - PSHx: 17:49 Heart Stents; right leg; ko1 - Immunization history:: Adult Immunizations up to date. - Social history:: Smoking status: Patient denies any tobacco usage or history of. ROS: 17:34 Constitutional: Negative for fever, chills, and weight loss, sb4 17:34 : Positive for casas catheter problem, 17:34 All other systems are negative, Exam: 17:34 Head/Face: Normocephalic, atraumatic. Eyes: Extra-ocular motions intact. Periorbital sb4 areas with no swelling, redness, or edema. ENT: Mucous membranes moist. Skin: Warm, dry with normal turgor. Normal color with no rashes, no lesions, and no evidence of cellulitis. Neuro: Awake and alert, GCS 15, oriented to person, place, time, and situation. Motor strength 5/5 in all extremities. Sensory grossly intact. 17:34 Constitutional: The patient appears in no acute distress, alert, awake, frail, 17:34 : a casas is noted, Vital Signs: 17:32 BP 175 / 95; Pulse 76; Resp 16; Temp 97.8(TE); Pulse Ox 100% on R/A; Pain 1/10; hb 17:32 Pain Scale: Adult hb MDM: 17:24 Patient medically screened. sb4 17:36 Data reviewed: vital signs, nurses notes, and as a result, I will discharge patient. sb4 Counseling: I had a detailed discussion with the patient and/or guardian regarding the historical points, exam findings, and any diagnostic results supporting the discharge/admit diagnosis, to return to the emergency department if symptoms worsen or persist or if there are any questions or concerns that arise at home. 10/22 17:34 Order name: Misc. Order: replace casas catheter; Complete Time: 17:49 sb4 Administered Medications: No medications were administered Disposition Summary: 10/22/23 17:36 Discharge Ordered Notes: Location: Home sb4 Problem: new sb4 Symptoms: are resolved sb4 Condition: Stable sb4 Diagnosis - Mechanical complication of urinary (indwelling) catheter sb4 Followup: sb4 - With: Ralph Sutton MD - When: As needed - Reason: Recheck today's complaints, Re-evaluation by your physician Discharge Instructions: - Discharge Summary Sheet sb4 - Indwelling Urinary Catheter Care, Adult, [id number] sb4 Forms: - Thank You Letter sb4 - Patient Portal Instructions sb4 - Leadership Thank You Letter sb4 Signatures: Linda Lewis RN RN ko1 Siena Acosta PA-C PA-C sb4 Corrections: (The following items were deleted from the chart) 17:37 17:34 patient states her casas catheter fell out this afternoon. it was placed earlier sb4 this afternoon and she believes the leg bag was taped too far down her leg which caused it to be pulled out. she has no complaints at this time. sb4
--- NOTE | 2023-10-22 17:59 | ER ---
Nurse's Notes [facility] Name: Emelia Payan Age: 83 yrs Sex: Female : 1940 Arrival Date: 10/22/2023 Time: 16:43 Bed 14 Private MD: Diagnosis: Mechanical complication of urinary (indwelling) catheter Presentation: 10/22 17:00 Chief complaint: Patient states: casas catheter fell out. Coronavirus screen: At this ko1 time, the client does not indicate any symptoms associated with coronavirus-19. Ebola Screen: No symptoms or risks identified at this time. Initial Sepsis Screen: Does the patient meet any 2 criteria? No. Patient's initial sepsis screen is negative. Does the patient have a suspected source of infection? No. Patient's initial sepsis screen is negative. Risk Assessment: Do you want to hurt yourself or someone else? Patient reports no desire to harm self or others. Onset of symptoms was October 22, 2023. 17:00 Method Of Arrival: Wheelchair ko1 17:00 Acuity: EDIS 4 ko1 17:32 Chief complaint: Patient states: "My catheter was replaced this afternoon but it got hb accidentally pulled out when I got home.". Coronavirus screen: At this time, the client does not indicate any symptoms associated with coronavirus-19. Ebola Screen: No symptoms or risks identified at this time. Initial Sepsis Screen: Does the patient meet any 2 criteria? No. Patient's initial sepsis screen is negative. Does the patient have a suspected source of infection? No. Patient's initial sepsis screen is negative. Risk Assessment: Do you want to hurt yourself or someone else? Patient reports no desire to harm self or others. Onset of symptoms was October 22, 2023. 17:32 Method Of Arrival: Wheelchair hb 17:32 Acuity: EDIS 4 hb Triage Assessment: 17:00 General: Appears in no apparent distress. Behavior is calm, cooperative, appropriate ko1 for age. Historical: - Allergies: 17:49 Bactrim; ko1 17:49 Cipro; ko1 17:49 Xarelto; ko1 17:49 Zosyn; ko1 - PMHx: 17:49 adrenal insuficiency; Anxiety; Atrial Fib; CHF; CVA; Diabetes - IDDM; DVT; ko1 Hyperlipidemia; Hypertension; Hypothyroidism; L groin blood clot; lymphedema; Pancreatitis; - PSHx: 17:49 Heart Stents; right leg; ko1 - Immunization history:: Adult Immunizations up to date. - Social history:: Smoking status: Patient denies any tobacco usage or history of. Screenin:49 [facility] ED Fall Risk Assessment (Adult) History of falling in the last 3 months, ko1 including since admission No falls in past 3 months (0 pts) Confusion or Disorientation No (0 pts) Intoxicated or Sedated No (0 pts) Impaired Gait Yes (1 pt) Mobility Assist Device Used Yes (1 pt) Altered Elimination Yes (1 pt) Score/Fall Risk Level 3 or more points = High Risk Oriented to surroundings, Maintained a safe environment, Educated pt \\T\\ family on fall prevention, incl call for assistance when getting out of bed, Assessed \\T\\ reinforced patient's understanding of fall precautions, Provided non-skid footwear, Hourly rounding (assess needs \\T\\ fall precautionary measures) done, Used ambulatory aids as needed (educated on \\T\\ assisted with), Used gait belt as appropriate Implemented a Fall Risk Plan of Care, Apply high fall risk patient identification: yellow non skid footwear/ fall signage, Remained w/in arm's length of patient and in sight while toileting, Offered frequent toileting (1:1 observation), Remained with patient while ambulating, Utilized family, sitter, or virtual membership administrator as indicated. Abuse screen: Denies threats or abuse. Denies injuries from another. Nutritional screening: No deficits noted. Tuberculosis screening: No symptoms or risk factors identified. Assessment: 17:49 Pain: Denies pain. ko1 Vital Signs: 17:32 BP 175 / 95; Pulse 76; Resp 16; Temp 97.8(TE); Pulse Ox 100% on R/A; Pain 1/10; hb 17:32 Pain Scale: Adult hb ED Course: 16:46 Patient arrived in ED. ts1 16:56 Siena Acosta PA-C is PHCP. sb4 16:56 Jose Elias Marquez MD is Attending Physician. sb4 17:00 Arm band placed on right wrist. Patient placed in an exam room, on a stretcher, on ko1 pulse oximetry, Patient notified of wait time. 17:31 Linda Lewis, RN is Primary Nurse. ko1 17:36 Ralph Sutton MD is Referral Physician. sb4 17:49 No provider procedures requiring assistance completed. Casas cath inserted, using ko1 sterile technique, 16 Fr., by me, balloon inflated, to gravity drainage, returned clear yellow urine. Patient tolerated well. Patient did not have IV access during this emergency room visit. 17:49 Patient has correct armband on for positive identification. Allergy band placed. Fall ko1 risk band placed. Bed in low position. Call light in reach. Side rails up X2. Provided Education on: na. Pulse ox on. NIBP on. Door closed. Noise minimized. Lights dimmed. Warm blanket given. 17:52 Triage completed. hb Administered Medications: No medications were administered Medication: 17:49 VIS not applicable for this client. ko1 Outcome: 17:36 Discharge ordered by . sb4 17:53 Discharged to home via wheelchair, with family, ko1 17:53 Condition: stable 17:53 Discharge instructions given to patient, family, Instructed on discharge instructions, follow up and referral plans. Demonstrated understanding of instructions, follow-up care, 17:58 Patient left the ED. ko1 Signatures: Leslie Kellogg, RN RN hb Linda Lewis, RN RN ko1 Siena Acosta, PAJuan MiguelC PAJuan MiguelC sb4 Sarah Browning PAS PAS ts1
[2023-10-22 18:22] VITALS: BP 175/95; TEMP 97.8; O2SAT 100
== END ==
LOC: ER 16:43
DX: T83.098A Other mechanical complication of other urinary catheter, initial encounter (principal)
CPT/HCPCS: 51702; 99284

== ENCOUNTER → 2023-10-28 | Emergency (ER) | payer OTHER ==
[~2023-10-28] MED LIST changes: -APIXABAN 5 MG TABLET ONE; -AZITHROMYCIN 250 MG TAB ONE; -CEFTRIAXONE 1000 MG/VIAL ONE; -FAMOTIDINE 20 MG/2 ML VIAL IV ONE; -FENTANYL CITR 100 MCG/2 ML ONE; -HYDROCORTISONE SUC 100 MG INJ ONE; -IPRATROPIUM BROM 0.5MG/2.5ML ONE; -KCL 20 MEQ/100 mL IVPB 100 ML IV ONE; -LEVALBUTEROL 1.25 MG/3 ML NEB ONE; -NA CHLORIDE 0.9% 1,000 ML ONE; +NA CHLORIDE 0.9% 500 ML ONE; -NS KCL 20MEQ 1,000 ML IV ONE; -ONDANSETRON 4 MG/2 ML VIAL ONE; -POTASSIUM 25 MEQ EFFERV TAB ONE; -dexAMETHasone 10 MG/ML VIAL ONE
[2023-10-28 16:57] LABS: Hematocrit 38.2 % (36.0-45.0); Lymphocytes % 12.5 % (15.3-44.8); MPV 7.9 fL (7.6-11.3); Platelets 130 thou/uL (152-406)
--- NOTE | 2023-10-28 17:10 | RAD REPORT ---
[facility] CLINICAL HISTORY: weakness COMPARISON: Chest Single View dated 10/21/2023; Chest Single View dated 09/22/2023; Chest Single View dated 09/09/2023; Chest Single View dated 05/18/2022 TECHNIQUE: Portable AP view of the chest. FINDINGS: The lungs are clear. Mild hyperinflation again seen. No pneumothorax or effusion. The card iomediastinal contours are unremarkable. IMPRESSION: No acute cardiopulmonary process.
[2023-10-28 17:22] LABS: Bilirubin Direct 0.2 mg/dL (0-0.2); Bilirubin Indirect, Calculated 0.7 mg/dL (0.2-0.8); Bilirubin Total 0.9 mg/dL (0.2-1.0); Protein, Total 6.4 g/dL (6.4-8.2); Troponin High Sensitivity 14.2 pg/mL (<58.9)
[2023-10-28 17:27] LABS: Magnesium 1.8 mg/dL (1.6-2.4); Potassium 3.6 mEq/L (3.5-5.1)
--- NOTE | 2023-10-28 20:28 | EDPHYS ---
Physician Documentation [facility] Name: Emelia Payan Age: 83 yrs Sex: Female : 1940 Arrival Date: 10/28/2023 Time: 15:58 Bed 7 Private MD: Constantino Joiner ED Physician Jaxon De La Rosa HPI: 10/28 18:15 This 83 yrs old Female presents to ER via Wheelchair with complaints of Weakness, rt Dehydrated. 18:15 Patient has a history of dysphagia due to reported cervical stenosis, she is scheduled rt for surgery in the coming weeks. She states that she has had poor p.o. intake. She states that she is having chest pain, shortness of breath starting this morning. Symptoms have been consistent. Denies aggravating elevating factors. Pain is aching nature, nonradiating, no other aggravating or alleviating factors.. Historical: - Allergies: 16:10 Bactrim; ll1 16:10 Cipro; ll1 16:10 Xarelto; ll1 16:10 Zosyn; ll1 - PMHx: 16:10 adrenal insuficiency; Anxiety; Atrial Fib; CHF; CVA; Diabetes - IDDM; DVT; ll1 Hyperlipidemia; Hypertension; Hypothyroidism; L groin blood clot; lymphedema; Pancreatitis; - PSHx: 16:10 Heart Stents; right leg; ll1 - Immunization history:: Adult Immunizations up to date. - Social history:: Smoking status: Patient denies any tobacco usage or history of. - Family history:: not pertinent. ROS: 18:15 Constitutional: Negative for fever, chills, and weight loss, Abdomen/GI: Negative for rt abdominal pain, nausea, vomiting, diarrhea, and constipation, MS/Extremity: Negative for injury and deformity, Psych: Negative for depression, anxiety, suicide ideation, homicidal ideation, and hallucinations, 18:15 Cardiovascular: Positive for chest pain, Negative for edema, 18:15 Respiratory: Positive for shortness of breath, Negative for cough, 18:15 Neuro: Positive for dizziness, weakness, Exam: 18:15 Constitutional: This is a well developed, well nourished patient who is awake, alert, rt and in no acute distress. Head/Face: Normocephalic, atraumatic. Chest/axilla: Normal chest wall appearance and motion. Nontender with no deformity. No lesions are appreciated. Cardiovascular: Regular rate and rhythm with a normal S1 and S2. No gallops, murmurs, or rubs. Normal PMI, no JVD. No pulse deficits. Respiratory: Lungs have equal breath sounds bilaterally, clear to auscultation and percussion. No rales, rhonchi or wheezes noted. No increased work of breathing, no retractions or nasal flaring. Abdomen/GI: Soft, non-tender, with normal bowel sounds. No distension or tympany. No guarding or rebound. No evidence of tenderness throughout. Skin: Warm, dry with normal turgor. Normal color with no rashes, no lesions, and no evidence of cellulitis. MS/ Extremity: Pulses equal, no cyanosis. Neurovascular intact. Full, normal range of motion. Neuro: Awake and alert, GCS 15, oriented to person, place, time, and situation. Cranial nerves II-XII grossly intact. Motor strength 5/5 in all extremities. Sensory grossly intact. Cerebellar exam normal. Normal gait. 18:15 ECG was reviewed by the Attending Physician. Vital Signs: 16:08 BP 142 / 87; Pulse 72; Resp 16; Temp 97.3; Pulse Ox 100% ; Weight 52.62 kg; Height 5 ll1 ft. 4 in. ; Pain 5/10; 17:33 BP 175 / 76; Pulse 63; Resp 18; Pulse Ox 98% on R/A; ld1 18:24 BP 170 / 77; Pulse 69; Resp 18; Pulse Ox 100% on R/A; ld1 19:31 BP 173 / 80; Pulse 67; Resp 17 S; Pulse Ox 100% on R/A; lg3 20:58 BP 173 / 80; Pulse 70; Resp 16; Pulse Ox 100% on R/A; Pain 0/10; tm6 16:08 Body Mass Index 19.91 (52.62 kg, 162.56 cm) ll1 16:08 Pain Scale: Adult ll1 20:58 Pain Scale: Adult tm6 MDM: 16:22 Patient medically screened. rt 18:26 Data reviewed: vital signs, nurses notes, lab test result(s), EKG, radiologic studies. rt Consideration of Admission/Observation Escalation of care including admission/observation considered. Discussed admission with the patient, stating that we may completely ruled out heart disease with negative troponins. EKG is stably abnormal compared to prior exam. Patient states that she strongly does not wish to stay in the hospital. 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 Return precautions were discussed.. I considered the following discharge prescriptions or medication management in the emergency department Medications were administered in the Emergency Department. See MAR. Independent interpretation of the following test(s) in the Emergency Department X-Ray: My interpretation is No consolidations and interpretation of x-ray images. Test considered but Not performed: CT: Low suspicion for PE, CT angiogram not indicated. Care significantly affected by the following chronic conditions: A-fib, CHF. Counseling: I had a detailed discussion with the patient and/or guardian regarding the historical points, exam findings, and any diagnostic results supporting the discharge/admit diagnosis, lab results, radiology results, the need for outpatient follow up, to return to the emergency department if symptoms worsen or persist or if there are any questions or concerns that arise at home. Response to treatment: the patient's symptoms have resolved after treatment, the patient's pain is gone. 20:27 ED course: Patient repeat troponin 13.4 per lab. Given verbally. Plan per Dr. flori De La Rosa was to discharge want to stay in the hospital. Will discharge now that second troponin is negative.. 10/28 16:32 Order name: Basic Metabolic Panel; Complete Time: 17:28 rt 10/28 16:32 Order name: CBC with Diff; Complete Time: 17:14 rt 10/28 16:32 Order name: LFT's; Complete Time: 17:28 rt 10/28 16:32 Order name: Magnesium; Complete Time: 17:28 rt 10/28 16:32 Order name: Troponin HS; Complete Time: 17:28 rt 10/28 18:24 Order name: Troponin High Sensitivity ld1 10/28 18:24 Order name: Troponin High Sensitivity rt 10/28 16:32 Order name: XRAY Chest (1 view); Complete Time: 17:14 rt 10/28 16:32 Order name: EKG; Complete Time: 16:32 rt 10/28 16:32 Order name: Cardiac monitoring; Complete Time: 16:57 rt 10/28 16:32 Order name: EKG - Nurse/Tech; Complete Time: 16:57 rt 10/28 16:32 Order name: IV Saline Lock; Complete Time: 16:53 rt 10/28 16:32 Order name: Labs collected and sent; Complete Time: 16:53 rt 10/28 16:32 Order name: O2 Per Protocol; Complete Time: 16:33 rt 10/28 16:32 Order name: O2 Sat Monitoring; Complete Time: 16:33 rt 10/28 19:22 Order name: Misc. Order: RECOLLECT LIGHT GREEN; Complete Time: 20: rv1 EC:15 Rate is 69 beats/min. Rhythm is regular, Normal Sinus Rhythm with No ectopy. Left axis rt deviation noted. MS interval is normal. QRS interval is normal. QT interval is normal. No Q waves. Clinical impression: NSR w/ Non-specific ST/T Changes. 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
--- NOTE | 2023-10-28 20:28 | ER ---
Nurse's Notes [facility] Name: Emelia Payan Age: 83 yrs Sex: Female : 1940 Arrival Date: 10/28/2023 Time: 15:58 Bed 7 Private MD: Constantino Joiner Diagnosis: Chest pain, unspecified Presentation: 10/28 16:08 Chief complaint: Patient states: CP and SOB started this morning. Nasal drainage for ll1 over 2 weeks, some nausea. Feels dehydrated. Coronavirus screen: Vaccine status: Patient reports receiving the 2nd dose of the covid vaccine. Client denies travel out of the [place] in the last 14 days. congestion, nausea, Client presents with at least one sign or symptom that may indicate coronavirus-19. Standard/surgical mask placed on the client. Ebola Screen: Patient denies travel to an Ebola-affected area in the 21 days before illness onset. No acute neurological deficit is noted. Initial Sepsis Screen: Does the patient meet any 2 criteria? No. Patient's initial sepsis screen is negative. Does the patient have a suspected source of infection? No. Patient's initial sepsis screen is negative. Risk Assessment: Do you want to hurt yourself or someone else? Patient reports no desire to harm self or others. Onset of symptoms was October 28, 2023. 16:08 Method Of Arrival: Wheelchair ll1 16:08 Acuity: EDIS 3 ll1 Triage Assessment: 16:27 General: Appears uncomfortable, ill, Behavior is calm, cooperative, appropriate for ll1 age. Pain: Complains of pain in chest Quality of pain is described as aching, pressure. EENT: Reports nasal congestion nasal discharge. Neuro: Reports weakness. Cardiovascular: Reports chest pain, shortness of breath. GI: Reports nausea. Musculoskeletal: Reports weakness in generalized. Stroke Activation: Symptom onset > 6 hours Physician: Stroke Attending; Name: ; Notified At: ; Arrived At: Physician: Chief Stroke Resident; Name: ; Notified At: ; Arrived At: Physician: Stroke Resident; Name: ; Notified At: ; Arrived At: Physician: ED Attending; Name: ; Notified At: ; Arrived At: Physician: ED Resident; Name: ; Notified At: ; Arrived At: Historical: - Allergies: 16:10 Bactrim; ll1 16:10 Cipro; ll1 16:10 Xarelto; ll1 16:10 Zosyn; ll1 - PMHx: 16:10 adrenal insuficiency; Anxiety; Atrial Fib; CHF; CVA; Diabetes - IDDM; DVT; ll1 Hyperlipidemia; Hypertension; Hypothyroidism; L groin blood clot; lymphedema; Pancreatitis; - PSHx: 16:10 Heart Stents; right leg; ll1 - Immunization history:: Adult Immunizations up to date. - Social history:: Smoking status: Patient denies any tobacco usage or history of. - Family history:: not pertinent. Screenin:33 [facility] ED Fall Risk Assessment (Adult) History of falling in the last 3 months, ld1 including since admission No falls in past 3 months (0 pts). Abuse screen:. Abuse screen: Denies threats or abuse. Denies injuries from another. Nutritional screening: No deficits noted. Tuberculosis screening: No symptoms or risk factors identified. Assessment: 17:33 General: Appears in no apparent distress. comfortable, Behavior is calm, cooperative, ld1 appropriate for age. Pain: Denies pain. Neuro: Level of Consciousness is awake, alert, obeys commands, Oriented to person, place, time, situation. Cardiovascular: Capillary refill < 3 seconds Patient's skin is warm and dry. Respiratory: Airway is patent Respiratory effort is even, unlabored. GI: Abdomen is flat, non-distended. : No signs and/or symptoms were reported regarding the genitourinary system. EENT: No signs and/or symptoms were reported regarding the EENT system. Derm: No signs and/or symptoms reported regarding the dermatologic system. Musculoskeletal: No signs and/or symptoms reported regarding the musculoskeletal system. 18:24 Reassessment: Patient appears in no apparent distress at this time. No changes from ld1 previously documented assessment. Patient and/or family updated on plan of care and expected duration. Pain level reassessed. 19:31 General: Appears in no apparent distress. comfortable, Behavior is calm, cooperative. lg3 Pain: Denies pain. Neuro: No deficits noted. [place] Agitation-Sedation Scale (RASS): 0 - Alert and Calm Level of Consciousness is awake, alert, obeys commands, Oriented to person, place, time, situation. Cardiovascular: No deficits noted. Denies chest pain, shortness of breath, Heart tones S1 S2 present Capillary refill < 3 seconds Clubbing of nail beds is absent JVD is absent Patient's skin is warm and dry. Respiratory: No deficits noted. Airway is patent Respiratory effort is even, unlabored, Respiratory pattern is regular, symmetrical, Breath sounds are clear bilaterally. GI: No deficits noted. No signs and/or symptoms were reported involving the gastrointestinal system. Abdomen is flat, non-distended. : No deficits noted. No signs and/or symptoms were reported regarding the genitourinary system. EENT: No deficits noted. No signs and/or symptoms were reported regarding the EENT system. Derm: No signs and/or symptoms reported regarding the dermatologic system. Skin is intact, is fragile, is thin, Skin is dry, Skin is normal, Skin temperature is warm. Musculoskeletal: No deficits noted. No signs and/or symptoms reported regarding the musculoskeletal system. Circulation, motion, and sensation intact. Range of motion: intact in all extremities. 20:59 Reassessment: Patient appears in no apparent distress at this time. No changes from tm6 previously documented assessment. Patient and/or family updated on plan of care and expected duration. Pain level reassessed. Vital Signs: 16:08 BP 142 / 87; Pulse 72; Resp 16; Temp 97.3; Pulse Ox 100% ; Weight 52.62 kg; Height 5 ll1 ft. 4 in. ; Pain 5/10; 17:33 BP 175 / 76; Pulse 63; Resp 18; Pulse Ox 98% on R/A; ld1 18:24 BP 170 / 77; Pulse 69; Resp 18; Pulse Ox 100% on R/A; ld1 19:31 BP 173 / 80; Pulse 67; Resp 17 S; Pulse Ox 100% on R/A; lg3 20:58 BP 173 / 80; Pulse 70; Resp 16; Pulse Ox 100% on R/A; Pain 0/10; tm6 16:08 Body Mass Index 19.91 (52.62 kg, 162.56 cm) ll1 16:08 Pain Scale: Adult ll1 20:58 Pain Scale: Adult tm6 ED Course: 16:02 Patient arrived in ED. mr 16:02 Constantino Joiner MD is Private Physician. mr 16:10 Triage completed. ll1 16:10 Arm band placed on. ll1 16:15 Jaxon De La Rosa MD is Attending Physician. rt 16:53 Inserted saline lock: 22 gauge in right forearm, using aseptic technique. Blood ld1 collected. 16:57 XRAY Chest (1 view) In Process Unspecified. EDMS 17:33 Susana Fletcher, RN is Primary Nurse. ld1 17:33 Patient has correct armband on for positive identification. Placed in gown. Bed in low ld1 position. Call light in reach. Side rails up X2. Pulse ox on. NIBP on. Door closed. Noise minimized. Warm blanket given. 17:33 No provider procedures requiring assistance completed. ld1 19:08 Troponin High Sensitivity Sent. lg3 19:31 Patient maintains SpO2 saturation greater than 95% on room air. lg3 20:28 Hafsa Belcher MD is Referral Physician. rn 20:59 Provided Education on: follow up care. tm6 20:59 IV discontinued, intact, bleeding controlled, No redness/swelling at site. Pressure tm6 dressing applied. Administered Medications: 16:53 Drug: NS 0.9% IV 500 ml IV at bolus once Route: IV; Rate: bolus; Site: right forearm; ld1 Medication: 17:33 VIS not applicable for this client. ld1 Outcome: 20:28 Discharge ordered by MD. rn 20:59 Discharged to home via wheelchair, with family, tm6 20:59 Condition: stable 20:59 Discharge instructions given to patient, family, Instructed on discharge instructions, follow up and referral plans. Demonstrated understanding of instructions, follow-up care, 20:59 Patient left the ED. tm6 Signatures: Dispatcher [employer] EDNY Polly Frost, Reg Reg mr Adan Bolden MD MD rn Able, Lacie, RN RN lg3 Paolo Romero RN RN ll1 Susana Fletcher RN RN ld1 Jaxon De La Rosa MD MD rt Maureen Walters RN RN tm6
[2023-10-28 21:19] VITALS: BP 173/80; TEMP 97.3; O2SAT 100
--- NOTE | 2023-10-31 14:37 | EKG ---
Test Date: 2023-10-28 Test Time: 16:59:00 Cardiology Clinical Consultant: MEASUREMENT RESULTS: Intervals: Rate: 69 NE: 168 QRSD: 78 QT: 394 QTc: 422 [place]: P: 57 NE: 168 QRS: -39 T: -68 INTERPRETIVE STATEMENTS: Normal sinus rhythm Left axis deviation ST & T wave abnormality, consider inferior ischemia ST & T wave abnormality, consider anterior ischemia Abnormal ECG Compared to ECG 10/21/2023 09:14:54 Left-axis deviation now present Atrial flutter no longer present ST (T wave) deviation still present Possible ischemia still present Electronically Signed On 10-31-23 14:29:26 ADMINISTRATIVE SUPPORT COORDINATOR by Kemar Hall
== END ==
LOC: ER 15:58
DX: R07.9 Chest pain, unspecified (principal); R53.1 Weakness; I10 Essential (primary) hypertension; I50.9 Heart failure, unspecified; Z95.818 Presence of other cardiac implants and grafts; Z88.1 Allergy status to other antibiotic agents; Z88.8 Allergy status to other drugs, medicaments and biological substances
CPT/HCPCS: 85025; 80048; 36415; 83735; 80076; 84484 ×2; 71045; J7040; 93005

== ENCOUNTER → 2023-11-02 | Day surgery (SDC) | payer OTHER ==
[~2023-11-02] MED LIST changes: +LIDOCAINE JELLY 2% 5 ML SYRINGE TOP ONE; -NA CHLORIDE 0.9% 500 ML ONE
[2023-11-02 13:28] VITALS: BP 142/76; TEMP 97.6; O2SAT 100
--- NOTE | 2023-11-02 13:46 | RAD REPORT ---
EXAM DESCRIPTION: RAD - Chest Single View - 11/02/2023 1:36 pm CLINICAL HISTORY: placement of dophoff tube Chest pain. COMPARISON: Chest Single View dated 10/28/2023; Chest Single View dated 10/21/2023; Chest Single View dated 09/22/2023; Chest Single View dated 09/09/2023 FINDINGS: Portable technique limits examination quality. Tip of the enteric tube is in the distal stomach.
--- NOTE | 2023-11-02 14:58 | RAD REPORT ---
EXAM DESCRIPTION: RAD - Chest Single View - 11/02/2023 2:51 pm CLINICAL HISTORY: S/P DOBHOFF PLACEMENT Chest pain. COMPARISON: Chest Single View dated 11/02/2023; Chest Single View dated 10/28/2023; Chest Single View dated 10/21/2023; Chest Single View dated 09/22/2023 FINDINGS: Portable technique limits examination quality. The enteric tube tip is in the stomach. It appears to have been retracted somewhat since the prior .
== END ==
LOC: OR 11:47
PROVIDERS: ATTEND Internal Medicine Gastroenterology
DX: R13.10 Dysphagia, unspecified (principal); Z53.09 Procedure and treatment not carried out because of other contraindication
CPT/HCPCS: 71045

== ENCOUNTER 2023-11-09 09:13 | Day surgery (SDC) | payer OTHER ==
[2023-11-09] MEDS: Ringers Lactate 1,000 ML IV ONE (09:26)
[2023-11-09] MEDS ORDERED: propofoL 200 MG/20 ML VIAL IV ONE ×2 (11:04)
[2023-11-09] MEDS ORDERED: LIDOCAINE 1% MPF 5 ML VIAL ONE (11:04)
[2023-11-09 13:21] VITALS: BP 120/41; TEMP 97.4; O2SAT 100
== END 2023-11-09 12:50 | disposition home or self-care (01) ==
LOC: OR 09:13
PROVIDERS: ATTEND Internal Medicine Gastroenterology
PROC: 0DH63UZ Insertion of Feeding Device into Stomach, Percutaneous Approach (ICD-10-PCS; principal; 2023-11-09 10:45)
PROC: 0DB68ZX Excision of Stomach, Via Natural or Artificial Opening Endoscopic, Diagnostic (ICD-10-PCS; 2023-11-09 10:45)
DX: R13.19 Other dysphagia (principal); K21.9 Gastro-esophageal reflux disease without esophagitis; M50.30 Other cervical disc degeneration, unspecified cervical region; R93.3 Abnormal findings on diagnostic imaging of other parts of digestive tract; K29.50 Unspecified chronic gastritis without bleeding
CPT/HCPCS: 43239; 43246; J2704; J2001; J7120; 88305; 88312

== ENCOUNTER 2023-11-10 09:43 | Inpatient (IN) | payer OTHER ==
[2023-11-10 10:50] LABS: Absolute Eosinophils 0.1 K/uL (0-0.5); Absolute Lymphocytes (CBC) 1.1 K/uL (0.7-4.9); Absolute Monocytes 0.3 K/uL (0.1-1.3); Absolute Neutrophil 3.8 K/uL (1.8-8.0); Basophils % 0.7 % (0-1.3); Eosinophils % 1.2 % (0-4.4); Hematocrit 34.1 % (36.0-45.0); Hemoglobin 11.7 g/dL (12.0-15.0); Lymphocytes % 19.8 % (15.3-44.8); MCHC 34.3 g/dL (32.0-36.0); MPV 9.4 fL (7.6-11.3); Monocytes % 6.2 % (3.3-12.3); Neutrophils % 72.1 % (41.7-73.7); Nucleated Red Blood Cells % 0.1 % (0-0); Platelets 125 thou/uL (152-406); RBC Red Blood Cell Count 3.45 M/uL (3.86-4.86); Red Cell Distribution Width 17.7 % (12.1-15.2)
[2023-11-10 11:05] LABS: Albumin 2.3 g/dL (3.4-5.0); Albumin/Globulin Ratio 0.7 (1.1-1.8); Anion Gap 11.8 mEq/L (5.0-15.0); Bilirubin Total 0.7 mg/dL (0.2-1.0); Globulin 3.5 g/dL (2.3-3.5); Potassium 3.8 mEq/L (3.5-5.1); Protein, Total 5.8 g/dL (6.4-8.2); Troponin High Sensitivity 13.2 pg/mL (<58.9)
[2023-11-10] MEDS ORDERED: NA CHLORIDE 0.9% 100 ML ONE (11:16)
[2023-11-10] MEDS ORDERED: CEFEPIME 1 GM/VIAL ONE (11:16)
[2023-11-10 11:56] LABS: Specific Gravity 1.029 (1.005-1.030); Sqamous Epithelial <5 /HPF (None Seen); Urine Bacteria <20 /HPF (<20); Urine Bilirubin NEGATIVE (Negative); Urine Blood Trace (Negative); Urine Clarity Extremely Turbid (Clear); Urine Color Yellow (Yellow); Urine Culture Reflex Order REFLEXED; Urine Glucose NEGATIVE (Negative); Urine Granular Casts 0-5 /LPF (None Seen); Urine Ketones 1+ (Negative); Urine Microscopic Reflex YN ORDER UMIC; Urine Mucus Slight /HPF (None Seen); Urine Nitrite NEGATIVE (Negative); Urine Protein 1+ (Negative); Urine Urobilinogen 1+ (Normal); Urine WBC >50 /HPF (<5); Urine WBC Clump Occasional /HPF (None Seen); Urine pH 5.5 (5.0-7.0)
--- NOTE | 2023-11-10 12:09 | RAD REPORT ---
EXAM DESCRIPTION: CT - Abdomen Pelvis Wo Contrast - 11/10/2023 11:49 am CLINICAL HISTORY: Abdominal pain COMPARISON: November 05, 2023 TECHNIQUE: Computed axial tomography of the abdomen and pelvis was obtained. IV contrast not request ed All CT scans are performed using dose optimization technique as appropriate and may include automated exposure control or mA/KV adjustment according to patient size. FINDINGS: The evaluation of solid organs, and vessels is limited secondary to the lack of contrast administration. A percutaneous tube is present within the gastric body. Small low-density lesions probably cysts. Spleen, pancreas, adrenals and kidneys grossly normal. Small renal cysts Contrast from the prior CT within the bladder. Hysterectomy. No adnexal mass. No evidence of diverticulitis. Cement has been placed into vertebral body fractures. Mild chronic compression fracture lower thoraci c spine IVC filter in place Mild anterior subluxation L4 on L5 IMPRESSION: No acute abnormality is displayed.
--- NOTE | 2023-11-10 12:27 | ER ---
Nurse's Notes [facility] Name: Emelia Payan Age: 83 yrs Sex: Female : 1940 Arrival Date: 11/10/2023 Time: 09:43 Bed 13 Private MD: Diagnosis: UTI/ Urinary tract infection, site not specified;Muscle weakness (generalized);Adult failure to thrive;Sacral Decubitus Stage II;Hypotension, unspecified Presentation: 11/09 09:58 Chief complaint: Patient states: sent by Dr. Moore for low blood pressure. aa5 09:58 Acuity: EDIS 2 aa5 09:58 Coronavirus screen: At this time, the client does not indicate any symptoms associated aa5 with coronavirus-19. Ebola Screen: Patient denies travel to an Ebola-affected area in the 21 days before illness onset. Initial Sepsis Screen: Does the patient meet any 2 criteria? No. Patient's initial sepsis screen is negative. Does the patient have a suspected source of infection? No. Patient's initial sepsis screen is negative. Risk Assessment: Do you want to hurt yourself or someone else? Patient reports no desire to harm self or others. Onset of symptoms was November 10, 2023. 09:58 Method Of Arrival: Wheelchair aa5 Triage Assessment: 20:24 General: Appears in no apparent distress. Behavior is calm, cooperative, appropriate cp4 for age. Historical: - Allergies: 10:10 Bactrim; aa5 10:10 Cipro; aa5 10:10 Xarelto; aa5 10:10 Zosyn; aa5 - PMHx: 10:10 adrenal insuficiency; Anxiety; Atrial Fib; CHF; CVA; Diabetes - IDDM; DVT; aa5 Hyperlipidemia; Hypertension; Hypothyroidism; L groin blood clot; lymphedema; Pancreatitis; - PSHx: 10:10 Heart Stents; right leg; aa5 - Immunization history:: Adult Immunizations unknown. - Social history:: Smoking status: Patient denies any tobacco usage or history of. Screenin:01 [facility] ED Fall Risk Assessment (Adult) History of falling in the last 3 months, cp4 including since admission No falls in past 3 months (0 pts) Confusion or Disorientation No (0 pts) Intoxicated or Sedated No (0 pts) Impaired Gait Yes (1 pt) Mobility Assist Device Used Yes (1 pt) Altered Elimination No (0 pt) Score/Fall Risk Level 0 - 2 = Low Risk Oriented to surroundings, Maintained a safe environment, Educated pt \T\ family on fall prevention, incl call for assistance when getting out of bed, Assessed \T\ reinforced patient's understanding of fall precautions, Provided non-skid footwear, Hourly rounding (assess needs \T\ fall precautionary measures) done. Abuse screen: Denies threats or abuse. Nutritional screening: No deficits noted. Tuberculosis screening: No symptoms or risk factors identified. Assessment: 10:41 Reassessment: Pt moved to ER Room 13. aa5 11:01 General: Appears in no apparent distress. Behavior is calm, cooperative, appropriate cp4 for age. Pain: Denies pain. 11:02 Cardiovascular: Denies chest pain, fatigue, shortness of breath. cp4 Vital Signs: 09:58 BP 83 / 41; Pulse 85; Resp 14 S; Temp 97.5(O); Pulse Ox 99% on R/A; Weight 52.62 kg aa5 (R); Height 5 ft. 4 in. (R); 10:09 BP 95 / 40; aa5 11:00 BP 125 / 51; Pulse 48; Resp 16; Pulse Ox 99% ; cp4 11:30 BP 119 / 46; Pulse 50; Resp 16; Pulse Ox 100% ; cp4 12:00 BP 99 / 60; Pulse 52; Resp 16; Pulse Ox 99% ; cp4 12:30 BP 95 / 51; Pulse 52; Resp 16; Pulse Ox 98% ; cp4 13:00 BP 96 / 45; Pulse 50; Resp 16; Pulse Ox 98% ; cp4 13:30 BP 109 / 45; Pulse 42; Resp 16; Pulse Ox 97% ; cp4 14:00 BP 126 / 52; Pulse 44; Resp 18; Pulse Ox 98% ; cp4 14:30 BP 122 / 45; Pulse 41; Resp 16; Pulse Ox 99% ; cp4 15:00 BP 99 / 49; Pulse 58; Resp 16; Pulse Ox 98% ; cp4 16:00 BP 109 / 40; Pulse 47; Resp 16; Pulse Ox 99% ; cp4 17:00 BP 113 / 42; Pulse 44; Resp 16; Pulse Ox 99% ; cp4 18:00 BP 104 / 54; Pulse 45; Resp 16; Pulse Ox 99% ; cp4 19:00 BP 108 / 46; Pulse 44; Resp 16; Pulse Ox 99% ; cp4 19:45 BP 112 / 42; Pulse 16; Resp 43; Pulse Ox 99% ; cp4 09:58 Body Mass Index 19.91 (52.62 kg, 162.56 cm) aa5 ED Course: 09:47 Patient arrived in ED. im 09:48 Arthur Fletcher DO is Attending Physician. ms3 10:06 Arm band placed on. aa5 10:07 Triage completed. aa5 10:10 Missed attempt(s): 22 gauge in right forearm. Bleeding controlled, band aid applied, aa5 catheter tip intact. 10:15 Missed attempt(s): 22 gauge in right antecubital area. aa5 10:35 Initial lab(s) drawn, by me, sent to lab. Inserted saline lock: 22 gauge in right aa5 forearm, using aseptic technique. Blood collected. 10:37 First set of blood cultures drawn by me. aa5 10:43 Juliet Quijano is Primary Nurse. cp4 11:01 Bed in low position. Call light in reach. Side rails up X 1. cp4 11:34 Urinalysis w/ reflexes Sent. cp4 11:51 Abdomen In Process Unspecified. EDMS 12:25 Constantino Joiner MD is Hospitalizing Provider. ms3 19:12 No provider procedures requiring assistance completed. Patient admitted, IV remains in cp4 place. 19:13 Provided Education on: admission. cp4 Administered Medications: 11:33 Drug: Cefepime IVPB 1 grams IVPB at 200 ml/hr once over 30 mins; (mix in NS 100 mL) cp4 Route: IVPB; Rate: 200 ml/hr; Infused Over: 30 mins; Site: right forearm; 12:42 Follow up: Response: No adverse reaction; IV Status: Completed infusion cp4 Medication: 11:01 VIS not applicable for this client. cp4 Outcome: 12:26 Decision to Hospitalize by Provider. ms3 19:12 Admitted to Tele accompanied by tech, family with patient, cp4 20:26 Admitted to Tele accompanied by сергей, Report called to ODILON Carrillo cp4 20:26 Condition: stable 20:26 Instructed on the need for admit, Demonstrated understanding of instructions, follow-up care, 20:27 Patient left the ED. cp4 Signatures: Dispatcher [employer] Giuliana Rooney RN RN aa5 Arthur Fletcher DO DO ms3 Cherelle Alvarado Christina cp4
--- NOTE | 2023-11-10 12:27 | EDPHYS ---
Physician Documentation [facility] Name: Emelia Payan Age: 83 yrs Sex: Female : 1940 Arrival Date: 11/10/2023 Time: 09:43 Bed 13 Private MD: ED Physician Arthur Fletcher HPI: 11/09 11:20 This 83 yrs old Female presents to ER via Wheelchair with complaints of Low blood ms3 pressure. 11:20 83-year-old female with past medical history of adrenal insufficiency, anxiety, atrial ms3 fibrillation, congestive heart failure, CVA, diabetes, DVT, hyperlipidemia presents to the emergency department from wound care for hypotension. Patient has had generalized weakness and a PEG was placed yesterday. Patient states she has had abdominal pain since yesterday that she rates a 7/10. Patient denies nausea, vomiting, fevers, chills. Patient states her primary care physician is Dr. Joiner.. Historical: - Allergies: 10:10 Bactrim; aa5 10:10 Cipro; aa5 10:10 Xarelto; aa5 10:10 Zosyn; aa5 - PMHx: 10:10 adrenal insuficiency; Anxiety; Atrial Fib; CHF; CVA; Diabetes - IDDM; DVT; aa5 Hyperlipidemia; Hypertension; Hypothyroidism; L groin blood clot; lymphedema; Pancreatitis; - PSHx: 10:10 Heart Stents; right leg; aa5 - Immunization history:: Adult Immunizations unknown. - Social history:: Smoking status: Patient denies any tobacco usage or history of. ROS: 11:20 Neck: Negative for injury, pain, and swelling, Cardiovascular: Negative for chest pain, ms3 and palpitations. Respiratory: Negative for shortness of breath, cough, wheezing, and pleuritic chest pain, Abdomen/GI: Negative for abdominal pain, nausea, vomiting, diarrhea, and constipation, MS/Extremity: Negative for injury and deformity, Skin: Negative for injury, rash, and discoloration, Exam: 11:58 Constitutional: This is a well developed, well nourished patient who is awake, alert, ms3 and in no acute distress. Head/Face: Normocephalic, atraumatic. Neck: Trachea midline, no cervical lymphadenopathy. Supple, full range of motion without nuchal rigidity, or vertebral point tenderness. No Meningismus. Chest/axilla: Normal chest wall appearance and motion. Nontender with no deformity. 11:58 Cardiovascular: Rate: bradycardic, Rhythm: irregularly irregular, Pulses: no pulse deficits are appreciated, Heart sounds: 11:59 ECG was reviewed by the Attending Physician. ms3 Vital Signs: 09:58 BP 83 / 41; Pulse 85; Resp 14 S; Temp 97.5(O); Pulse Ox 99% on R/A; Weight 52.62 kg aa5 (R); Height 5 ft. 4 in. (R); 10:09 BP 95 / 40; aa5 11:00 BP 125 / 51; Pulse 48; Resp 16; Pulse Ox 99% ; cp4 11:30 BP 119 / 46; Pulse 50; Resp 16; Pulse Ox 100% ; cp4 12:00 BP 99 / 60; Pulse 52; Resp 16; Pulse Ox 99% ; cp4 12:30 BP 95 / 51; Pulse 52; Resp 16; Pulse Ox 98% ; cp4 13:00 BP 96 / 45; Pulse 50; Resp 16; Pulse Ox 98% ; cp4 13:30 BP 109 / 45; Pulse 42; Resp 16; Pulse Ox 97% ; cp4 14:00 BP 126 / 52; Pulse 44; Resp 18; Pulse Ox 98% ; cp4 14:30 BP 122 / 45; Pulse 41; Resp 16; Pulse Ox 99% ; cp4 15:00 BP 99 / 49; Pulse 58; Resp 16; Pulse Ox 98% ; cp4 16:00 BP 109 / 40; Pulse 47; Resp 16; Pulse Ox 99% ; cp4 17:00 BP 113 / 42; Pulse 44; Resp 16; Pulse Ox 99% ; cp4 18:00 BP 104 / 54; Pulse 45; Resp 16; Pulse Ox 99% ; cp4 19:00 BP 108 / 46; Pulse 44; Resp 16; Pulse Ox 99% ; cp4 19:45 BP 112 / 42; Pulse 16; Resp 43; Pulse Ox 99% ; cp4 09:58 Body Mass Index 19.91 (52.62 kg, 162.56 cm) aa5 MDM: 10:07 Patient medically screened. ms3 11:58 Differential Diagnosis Post op bleeding vs anemia vs electrolyte abnormality. ms3 12:26 Data reviewed: vital signs, nurses notes, lab test result(s), EKG, radiologic studies, ms3 and as a result, I will admit patient. Consideration of Admission/Observation Patient was admitted/placed on observation. Management of patient was discussed with the following: Hospitalist: Rhys. I considered the following discharge prescriptions or medication management in the emergency department Medications were administered in the Emergency Department. See MAR. Historians other than the Patient: Spouse/Significant Other: Patient's . Care significantly affected by the following chronic conditions: HLD, A fib, DM. Counseling: I had a detailed discussion with the patient and/or guardian regarding the historical points, exam findings, and any diagnostic results supporting the discharge/admit diagnosis, lab results, radiology results, the need for further work-up and treatment in the hospital. Response to treatment: the patient's symptoms have markedly improved after treatment, and as a result, I will admit patient. ED course: Discussed case with Dr. Joiner and he accepts the patient for admission. Discussed with patient and her necessity for admission and they understand and agree with plan. All questions were answered. 11/09 09:53 Order name: CBC with Diff; Complete Time: 11:19 ms3 11/09 09:53 Order name: CMP; Complete Time: 11:19 ms3 11/09 09:53 Order name: Lipase; Complete Time: 11:19 ms3 11/09 09:53 Order name: Urinalysis w/ reflexes; Complete Time: 11:59 ms3 11/09 09:53 Order name: Troponin High Sensitivity; Complete Time: 11:19 ms3 11/09 10:13 Order name: Blood Culture Adult (2) ms3 11/09 12:02 Order name: Urine Culture EDMS 11/09 15:50 Order name: Magnesium EDMS 11/09 15:50 Order name: Thyroid Stimulating Hormone EDMS 11/09 15:50 Order name: CBC with Automated Diff EDMS 11/09 15:50 Order name: CBC with Automated Diff EDMS 11/09 15:50 Order name: CBC with Automated Diff EDMS 11/09 15:50 Order name: CBC with Automated Diff EDMS 11/09 15:50 Order name: Comprehensive Metabolic Panel EDMS 11/09 15:50 Order name: Comprehensive Metabolic Panel EDMS 11/09 15:50 Order name: Comprehensive Metabolic Panel EDMS 11/09 15:50 Order name: Comprehensive Metabolic Panel EDMS 11/09 15:50 Order name: Blood Culture EDKS 11/09 11:14 Order name: Abdomen ; Complete Time: 12:11 EDMS 11/09 09:53 Order name: EKG; Complete Time: 09:54 ms3 11/09 15:45 Order name: CONS Physician Consult EDKS 11/09 15:45 Order name: Social Service Consult EDKS 11/09 15:50 Order name: Physical Therapy Consult EDKS 11/09 09:53 Order name: IV Saline Lock; Complete Time: 10:40 ms3 11/09 09:53 Order name: Labs collected and sent; Complete Time: 10:40 ms3 11/09 09:53 Order name: EKG - Nurse/Tech; Complete Time: 10:40 ms3 EC:59 Rate is 51 beats/min. Rhythm is irregularly irregular. Left axis deviation noted. QRS ms3 interval is normal. Clinical impression: Atrial Fibrillation. Interpreted by me. Reviewed by me. Administered Medications: 11:33 Drug: Cefepime IVPB 1 grams IVPB at 200 ml/hr once over 30 mins; (mix in NS 100 mL) cp4 Route: IVPB; Rate: 200 ml/hr; Infused Over: 30 mins; Site: right forearm; 12:42 Follow up: Response: No adverse reaction; IV Status: Completed infusion cp4 Disposition Summary: 11/10/23 12:26 Hospitalization Ordered Notes: Hospitalization Status: Inpatient Admission ms3 Provider: Constantino Joiner ms3 Condition: Stable ms3 Problem: new ms3 Symptoms: are unchanged ms3 Bed/Room Type: Standard ms3 Location: Telemetry/MedSurg (Inpatient)(11/10/23 18:42) dw Room Assignment: 425(11/10/23 18:42) dw Diagnosis - UTI/ Urinary tract infection, site not specified ms3 - Muscle weakness (generalized) ms3 - Adult failure to thrive ms3 - Sacral Decubitus Stage II ms3 - Hypotension, unspecified ms3 Forms: - Medication Reconciliation Form ms3 - SBAR form ms3 - Leadership Thank You Letter ms3 Signatures: Dispatcher [employer] Ailyn Ulloa RN RN dw Calderon, Audri, RN RN aa5 Yolanda Lopez Marcus, DO DO ms3 Juliet Quijano cp4 Corrections: (The following items were deleted from the chart) 11:14 09:54 Abdomen Pelvis W Con+CT.RAD.BRZ ordered. EDMS EDMS 15:53 12:26 Telemetry/MedSurg (Inpatient) ms3 eb 15:53 12:26 ms3 eb 18:42 15:53 BR ER HOLD eb dw 18:42 15:53 ERHOLD- eb dw
[2023-11-10] MEDS: Meropenem 500 MG in NA CHLORIDE 0.9% 100 ML IV SCH ×2 (14:30→22:55)
[2023-11-10] MEDS: FENTANYL CITR 100 MCG/2 ML ONE (15:42)
[2023-11-10] MEDS ORDERED: clonazePAM 0.5 MG TAB PO PRN (15:56)
[2023-11-10] MEDS: FENTANYL CITR 100 MCG/2 ML IV ONE (15:57)
[2023-11-10] MEDS: NA CHLORIDE 0.9% 1,000 ML IV SCH ×2 (16:00→22:55)
--- NOTE | 2023-11-10 16:08 | P.HP ---
Certification for Inpatient Patient admitted to: Inpatient With expected LOS: >2 Midnights Patient will require the following post-hospital care: Rehabilitation Practitioner: I am a practitioner with admitting privileges, knowledge of patient current condition, hospital course, and medical plan of care. Services: Services provided to patient in accordance with Admission requirements found in Title 42 Section 412.3 of the Code of Federal Regulations Patient History Date of Service: 11/10/23 Primary Care Provider: robina Reason for admission: urosepsis, sacral decubitus History of Present Illness: Patient is an office patient of [facility]. She has been having recurrent uti's for which she see's Dr. Mari Sutton. A urine culture from 11/05/23 shows ESBL, E Fecalis and Klebsiella. She came to the wound care center today and was found to have low bp and was sent to the ER. The patient was given a lt of fluid. She was found to have a creatine of 1.5. Baseline is 0.8-0.9. The patient is in acute distress and could not give a history. her and the chart were where most of the history came from. the patient has PVD, atrial fib, hypothyroidism and is mostly bed bound. Allergies ciprofloxacin [From Cipro] Allergy (Verified 11/08/23 14:10) Rash rivaroxaban [From Xarelto] Allergy (Verified 11/08/23 14:10) Excessive Bleeding piperacillin [From Zosyn] Adverse Reaction (Verified 11/08/23 14:10) Hives/Rash tazobactam [From Zosyn] Adverse Reaction (Verified 11/08/23 14:10) Hives/Rash Home Medications: Amiodarone HCl [Cordarone*] 1 tab PO BID 07/09/23 Apixaban [Eliquis *] 1 tab PO BID 07/09/23 Calcium Carbonate/Vitamin D3 [Caltrate 600 Plus D3 Tablet] 1 tab PO DAILY 07/09/23 Digoxin 1 tab PO DAILY 07/09/23 Furosemide 20 tab PO DAILY 07/09/23 Hydrocortisone [Cortef*] 2 tab PO BID 07/09/23 Levothyroxine [Synthroid*] 88 mcg PO DIRECTED 07/09/23 Pen Injector Device [Humatropen] 0.2 mg SQ DAILY 07/09/23 Potassium Chloride 10 mg PO DAILY 07/09/23 Tramadol HCl [Ultram] 1 tab PO Q6HR PRN 07/09/23 clonazePAM [Clonazepam] 0.5 mg PO BEDTIME PRN 07/09/23 Famotidine 1 tab PO DAILY 09/22/23 Omeprazole [Prilosec] 40 mg PO DAILY 09/22/23 Glipizide [Glipizide Xl] 2.5 mg PO DAILY 11/08/23 Liothyronine Sodium [Cytomel] 5 mcg PO DAILY 11/08/23 - Past Medical/Surgical History Diabetic: Yes -: Diabetes mellitus type 2 insulin dependent -: CVA 2012 -: HTN -: Anxiety -: Hyperlipidemia -: GERD with history of GI bleed -: Hypothyroidism -: Chronic anti coagulation with Eliquis -: atrial fibrillation -: Chronic steroids -: Adrenal insufficiency -: Hyperlipidemia -: hysterectomy -: bradley carpal tunnel sx -: L lumpectomy -: brain tumor removed- benign -: pituitary gland removal -: appendectomy Psychosocial/ Personal History: The patient is . She has 5 children. She does not work. - Family History Mother -: Heart disease, Hypertension Notes: of heart attack Father -: Heart disease Notes: of heart attack - Social History Alcohol use: No CD- Drugs: No Caffeine use: Yes Review of Systems 10-point ROS is otherwise unremarkable General: Weakness Musculoskeletal: Back Pain Integumentary: Other Physical Examination - Physical Exam General: Alert, In no apparent distress, Severe distress HEENT: Atraumatic, PERRLA, Mucous membr. moist/pink, EOMI, Sclerae nonicteric Neck: Supple, 2+ carotid pulse no bruit, No LAD, Without JVD or thyroid abnormality Respiratory: Clear to auscultation bilaterally, Normal air movement Cardiovascular: Regular rate/rhythm, Normal S1 S2 Gastrointestinal: Normal bowel sounds, No tenderness Musculoskeletal: No tenderness Integumentary: No rashes Neurological: Normal gait, Normal speech, Normal strength at 5/5 x4 extr, Normal tone, Normal affect Lymphatics: No axilla or inguinal lymphadenopathy - Studies Laboratory Data (last 24 hrs) 11/10/23 11/10/23 10:37 10:37 WBC 5.30 Hgb 11.7 L Hct 34.1 L Plt Count 125 L Sodium 135 L Potassium 3.8 BUN 36 H Creatinine 1.56 H Glucose 94 Total Bilirubin 0.7 AST 20 ALT 16 Alkaline Phosphatase 61 Lipase 8 L Assessment and Plan - Problems (Diagnosis) (1) UTI (urinary tract infection) Onset Date: 01/20/16 Current Visit: No Status: Acute Plan: will start the patient on meropenem. check blood cultures. She may need a picc line and placement for 2 weeks of antibiotics. Qualifiers: Urinary tract infection type: acute cystitis Hematuria presence: without hematuria Qualified Code(s): N30.00 - Acute cystitis without hematuria (2) PVD (peripheral vascular disease) Current Visit: Yes Status: Acute Plan: will continue eliquis (3) Back pain Current Visit: Yes Status: Acute Plan: start her on iv fentanly which will not drop her bp. Will then start the patient on a fentanyl patch Will also start scheduled oral tylenol Qualifiers: Back pain location: low back pain Chronicity: chronic Back pain laterality: midline Sciatica presence: without sciatica Qualified Code(s): M54.50 - Low back pain, unspecified; G89.29 - Other chronic pain (4) RENATA (acute kidney injury) Current Visit: No Status: Acute Plan: baseline ckd stage 1. Will start her on fluids. Avoid nsaids. Start a casas and monitor creatine and urine output (5) Atrial fibrillation with rapid ventricular response Onset Date: 04/03/15 Current Visit: No Status: Chronic Plan: restart the digoxin and eliquis. Will hold beta blockers as she is bradycardic (6) Pressure ulcer of sacral region, stage 2 Current Visit: No Status: Chronic Plan: will consult wound care. start her on santyl. Will see if she needs pressure mattress Discharge Plan: LTAC Plan to discharge in: Greater than 2 days - Advance Directives Does patient have a Living Will: Yes Does patient have a Durable POA for Healthcare: Yes - Code Status/Comfort Care Code Status Assessed: Yes Code Status: Do Not Attempt Resuscitat Physician Review: Patient Assessed, Agree with Above Assessment and Plan Critical Care: No Time Spent Managing Pts Care (In Minutes): 50
[2023-11-10] MEDS ORDERED: ACETAMINOPHEN 160 MG/5 ML UCUP PO SCH (17:00)
[2023-11-10] MEDS ORDERED: ENOXAPARIN 30 MG/0.3 ML SQ SCH (17:00)
[2023-11-10] MEDS ORDERED: Meropenem 500 MG in NA CHLORIDE 0.9% 100 ML IV SCH (17:00)
[2023-11-10 17:21] VITALS: BMI 19.9
[2023-11-10] MEDS ORDERED: FENTANYL 25 MCG/PATCH TD SCH (20:00)
[2023-11-10] MEDS ORDERED: AMIODARONE HCL 200 MG TAB PO SCH (21:00)
[2023-11-10] MEDS ORDERED: APIXABAN 2.5 MG TABLET PO SCH (21:00)
[2023-11-10] MEDS: FENTANYL 25 MCG/PATCH TD SCH (23:59)
[2023-11-11] MEDS ORDERED: LIOTHYRONINE SOD 5 MCG TAB PO SCH (06:30)
[2023-11-11] MEDS ORDERED: LEVOTHYROXINE SOD 0.088 MG TAB PO SCH (06:30)
[2023-11-11] MEDS ORDERED: PANTOPRAZOLE 40MG TABLET PO SCH (06:30)
[2023-11-11] MEDS ORDERED: DIGOXIN 0.125 MG TABLET PO SCH (09:00)
[2023-11-11] MEDS ORDERED: POTASSIUM CL SA 10 MEQ TAB PO SCH (09:00)
[2023-11-11] MEDS ORDERED: COLLAGENASE 30 GM OINTMENT TOP SCH (09:00)
--- NOTE | 2023-11-11 10:30 | P.PN ---
Subjective Date of Service: 11/11/23 Primary Care Provider: robina Chief Complaint: urosepsis, sacral decubitus Subjective: No new changes (Patient moans to touch) Review of Systems General: Weakness Physical Examination - Vital Signs Temperature: 97.9 F Blood Pressure: 94/53 Pulse: 83 Respirations: 16 Pulse Ox (%): 95 - Physical Exam General: Alert, In no apparent distress HEENT: Atraumatic, PERRLA, EOMI Neck: Supple, JVD not distended Respiratory: Clear to auscultation bilaterally, Normal air movement Cardiovascular: Regular rate/rhythm, Normal S1 S2 Gastrointestinal: Normal bowel sounds, No tenderness Musculoskeletal: No tenderness Integumentary: No rashes Neurological: Normal speech, Normal tone, Normal affect Lymphatics: No axilla or inguinal lymphadenopathy - Studies Laboratory Data (last 24 hrs) 11/10/23 11/10/23 10:37 10:37 WBC 5.30 Hgb 11.7 L Hct 34.1 L Plt Count 125 L Sodium 135 L Potassium 3.8 BUN 36 H Creatinine 1.56 H Glucose 94 Total Bilirubin 0.7 AST 20 ALT 16 Alkaline Phosphatase 61 Lipase 8 L Microbiology Data (last 24 hrs): 11/10/23 10:37 Blood - Blood Anaerobic Blood Culture - Final 11/10/23 11:09 Blood - Blood Anaerobic Blood Culture - Final Assessment And Plan - Current Problems (Diagnosis) (1) UTI (urinary tract infection) Onset Date: 01/20/16 Current Visit: No Status: Acute Plan: will start the patient on meropenem. check blood cultures. She may need a picc line and placement for 2 weeks of antibiotics. Qualifiers: Urinary tract infection type: acute cystitis Hematuria presence: without hematuria Qualified Code(s): N30.00 - Acute cystitis without hematuria (2) PVD (peripheral vascular disease) Current Visit: Yes Status: Acute Plan: will continue eliquis (3) Back pain Current Visit: Yes Status: Acute Plan: start her on iv fentanly which will not drop her bp. Will then start the patient on a fentanyl patch Will also start scheduled oral tylenol Qualifiers: Back pain location: low back pain Chronicity: chronic Back pain laterality: midline Sciatica presence: without sciatica Qualified Code(s): M54.50 - Low back pain, unspecified; G89.29 - Other chronic pain (4) RENATA (acute kidney injury) Current Visit: No Status: Acute Plan: baseline ckd stage 1. Will start her on fluids. Avoid nsaids. Start a casas and monitor creatine and urine output (5) Atrial fibrillation with rapid ventricular response Onset Date: 04/03/15 Current Visit: No Status: Chronic Plan: restart the digoxin and eliquis. Will hold beta blockers as she is bradycardic (6) Pressure ulcer of sacral region, stage 2 Current Visit: No Status: Chronic Plan: will consult wound care. start her on santyl. Will see if she needs pressure mattress Discharge Plan: LTAC Plan to discharge in: Greater than 2 days Physician Review: Patient Assessed, Agree with Above Assessment and Plan Critical Care: No Time Spent Managing PTS Care (In Minutes): 30
[2023-11-11] MEDS: PANTOPRAZOLE 40MG TABLET PO SCH (10:36)
[2023-11-11] MEDS: APIXABAN 2.5 MG TABLET PO SCH (10:36)
[2023-11-11] MEDS: ACETAMINOPHEN 160 MG/5 ML UCUP PO SCH (10:36)
[2023-11-11] MEDS: NA CHLORIDE 0.9% 250 ML IV PRN (14:10)
--- NOTE | 2023-11-11 16:39 | RAD REPORT ---
EXAM DESCRIPTION: RAD - Sacrum And Coccyx - 11/11/2023 4:28 pm CLINICAL HISTORY: sacral decubitus COMPARISON: Spine Lumbar W obliques dated 03/26/2016; LUMBAR SPINE 3 VIEWS dated 08/24/2013; Abdomen Pelvis Wo Contrast dated 11/10/2023 FINDINGS/IMPRESSION: Limited evaluation of the sacrum and coccyx. No acute fracture. The frontal vie w is obscured by contrast within the colon. No definite evidence of osteomyelitis identified. MRI mor e sensitive in the acute phase.
[2023-11-11] MEDS ORDERED: NA CHLORIDE 0.9% 250 ML IV PRN (17:54)
[2023-11-12 06:27] LABS: Absolute Lymphocytes (CBC) 0.7 K/uL (0.7-4.9); Absolute Monocytes 0.2 K/uL (0.1-1.3); Absolute Neutrophil 1.6 K/uL (1.8-8.0); Basophils % 0.4 % (0-1.3); Eosinophils % 1.7 % (0-4.4); Hematocrit 30.4 % (36.0-45.0); Hemoglobin 10.2 g/dL (12.0-15.0); Lymphocytes % 26.9 % (15.3-44.8); MCH 33.8 pg (27.0-35.0); MCHC 33.7 g/dL (32.0-36.0); MCV 100.1 fL (80-100); MPV 9.8 fL (7.6-11.3); Monocytes % 7.8 % (3.3-12.3); Neutrophils % 63.2 % (41.7-73.7); Nucleated Red Blood Cells % 0.2 % (0-0); Platelets 90 thou/uL (152-406); RBC Red Blood Cell Count 3.03 M/uL (3.86-4.86); Red Cell Distribution Width 17.1 % (12.1-15.2)
[2023-11-12] MEDS ORDERED: LEVOTHYROXINE SOD 0.088 MG TAB PO SCH (06:30)
[2023-11-12 06:43] LABS: AST/SGOT 20 U/L (15-37); Albumin 1.5 g/dL (3.4-5.0); Albumin/Globulin Ratio 0.6 (1.1-1.8); Alkaline Phosphatase 49 U/L (45-117); Anion Gap 9.8 mEq/L (5.0-15.0); BUN Blood Urea Nitrogen 32 mg/dL (7-18); Bicarbonate 22 mEq/L (21-32); Bilirubin Total 0.3 mg/dL (0.2-1.0); Globulin 2.6 g/dL (2.3-3.5); Glomerular Filtration Rate 81 ml/min (=/>90); Glucose Level 71 mg/dL (74-106); Magnesium 2.1 mg/dL (1.6-2.4); Potassium 3.8 mEq/L (3.5-5.1); Protein, Total 4.1 g/dL (6.4-8.2); Sodium Level 140 mEq/L (136-145)
[2023-11-12 06:44] LABS: ALT/SGPT < 10 U/L (13-56)
[2023-11-12 08:20] LABS: White Blood Cell Scan OK (OK)
[2023-11-12 08:21] LABS: Anisocytosis 1+; Blood Morphology Comment NOTED (NOT SEEN); Ovalocytes 1+; Platelet Estimate DECR
[2023-11-12] MEDS: ONDANSETRON 4 MG/2 ML VIAL IV PRN (10:50)
--- NOTE | 2023-11-12 12:55 | P.PN ---
Subjective Date of Service: 11/12/23 Primary Care Provider: robina Chief Complaint: urosepsis, sacral decubitus Subjective: No new changes Review of Systems 10-point ROS is otherwise unremarkable Physical Examination - Vital Signs Temperature: 97.2 F Blood Pressure: 101/45 Pulse: 39 Respirations: 16 Pulse Ox (%): 96 - Physical Exam General: Alert, In no apparent distress HEENT: Atraumatic, PERRLA, EOMI Neck: Supple, JVD not distended Respiratory: Clear to auscultation bilaterally, Normal air movement Cardiovascular: Regular rate/rhythm, Normal S1 S2 Gastrointestinal: Normal bowel sounds, No tenderness Musculoskeletal: No tenderness Integumentary: No rashes Neurological: Normal speech, Normal tone, Normal affect Lymphatics: No axilla or inguinal lymphadenopathy - Studies Microbiology Data (last 24 hrs): 11/10/23 11:28 Clean Catch Urine [place] Count - Final No growth. 11/10/23 11:28 Clean Catch Urine - Final No growth. 11/10/23 11:09 Blood - Blood Anaerobic Blood Culture - Final 11/10/23 10:37 Blood - Blood Anaerobic Blood Culture - Final Assessment And Plan - Current Problems (Diagnosis) (1) UTI (urinary tract infection) Onset Date: 01/20/16 Current Visit: No Status: Acute Plan: will start the patient on meropenem. check blood cultures. She may need a picc line and placement for 2 weeks of antibiotics. Qualifiers: Urinary tract infection type: acute cystitis Hematuria presence: without hematuria Qualified Code(s): N30.00 - Acute cystitis without hematuria (2) PVD (peripheral vascular disease) Current Visit: Yes Status: Acute Plan: will continue eliquis (3) Back pain Current Visit: Yes Status: Acute Plan: start her on iv fentanly which will not drop her bp. Will then start the patient on a fentanyl patch Will also start scheduled oral tylenol Qualifiers: Back pain location: low back pain Chronicity: chronic Back pain laterality: midline Sciatica presence: without sciatica Qualified Code(s): M54.50 - Low back pain, unspecified; G89.29 - Other chronic pain (4) RENATA (acute kidney injury) Current Visit: No Status: Acute Plan: baseline ckd stage 1. Will start her on fluids. Avoid nsaids. Start a casas and monitor creatine and urine output (5) Atrial fibrillation with rapid ventricular response Onset Date: 04/03/15 Current Visit: No Status: Chronic Plan: restart the digoxin and eliquis. Will hold beta blockers as she is bradycardic (6) Pressure ulcer of sacral region, stage 2 Current Visit: No Status: Chronic Plan: will consult wound care. start her on santyl. Will see if she needs pressure mattress Discharge Plan: LTAC Plan to discharge in: Greater than 2 days - Code Status/Comfort Care Code Status Assessed: No Physician Review: Patient Assessed, Agree with Above Assessment and Plan Critical Care: No Time Spent Managing PTS Care (In Minutes): 20
[2023-11-12] MEDS: IBUPROFEN 100 MG/5 ML UCUP FT PRN (14:35)
[2023-11-12] MEDS: POTASSIUM 25 MEQ EFFERV TAB PO ONE (14:37)
[2023-11-12] MEDS: PROMETHAZINE INJ 25 MG/ML AMP IV ONE (15:17)
[2023-11-12] MEDS: Meropenem 1,000 MG in NA CHLORIDE 0.9% 100 ML IV SCH (22:02)
[2023-11-12] MEDS: DIPHENOX/ATROP SULF 1 TAB PO SCH (22:58)
[2023-11-13] MEDS: NALOXONE 0.4 MG/ML VIAL IV ONE (00:33)
[2023-11-13] MEDS: D5 0.9 NS 1,000 ML IV SCH (00:34)
[2023-11-13 07:00] LABS: Absolute Lymphocytes (CBC) 0.5 K/uL (0.7-4.9); Absolute Monocytes 0.1 K/uL (0.1-1.3); Absolute Neutrophil 2.1 K/uL (1.8-8.0); Basophils % 0.4 % (0-1.3); Eosinophils % 1.1 % (0-4.4); Hematocrit 33.4 % (36.0-45.0); Hemoglobin 11.3 g/dL (12.0-15.0); Lymphocytes % 17.2 % (15.3-44.8); MCH 33.8 pg (27.0-35.0); MCHC 33.8 g/dL (32.0-36.0); MCV 100.1 fL (80-100); MPV 10.4 fL (7.6-11.3); Monocytes % 4.4 % (3.3-12.3); Neutrophils % 76.9 % (41.7-73.7); Nucleated Red Blood Cells % 0.2 % (0-0); Platelets 87 thou/uL (152-406); RBC Red Blood Cell Count 3.33 M/uL (3.86-4.86); Red Cell Distribution Width 17.6 % (12.1-15.2)
[2023-11-13 07:12] LABS: CDIFF INTERNAL NEG CONTROL White Background (WHITE BKGD); STOOL CONSISTENCY Liquid/Semi-Solid
[2023-11-13 07:15] LABS: C.diff Antigen/Toxin Ag pos : Tox neg (NEG : NEG)
[2023-11-13 07:16] LABS: AST/SGOT 17 U/L (15-37); Albumin 1.5 g/dL (3.4-5.0); Albumin/Globulin Ratio 0.6 (1.1-1.8); Alkaline Phosphatase 49 U/L (45-117); Anion Gap 8.6 mEq/L (5.0-15.0); BUN Blood Urea Nitrogen 27 mg/dL (7-18); Bicarbonate 20 mEq/L (21-32); Bilirubin Total 0.3 mg/dL (0.2-1.0); Globulin 2.6 g/dL (2.3-3.5); Glomerular Filtration Rate 78 ml/min (=/>90); Glucose Level 105 mg/dL (74-106); Phosphorus 1.6 mg/dL (2.5-4.9); Potassium 3.6 mEq/L (3.5-5.1); Protein, Total 4.1 g/dL (6.4-8.2); Sodium Level 142 mEq/L (136-145)
[2023-11-13 07:19] LABS: ALT/SGPT < 10 U/L (13-56)
[2023-11-13] MEDS: POTASSIUM PHOS IN 0.9 % NACL 15 MMOL/250 ML BAG IV ONE (10:28)
--- NOTE | 2023-11-13 13:48 | P.PN ---
Subjective Date of Service: 11/13/23 Primary Care Provider: robina Chief Complaint: urosepsis, sacral decubitus Subjective: New changes (Had a rapid response. Narcan started and fentanyl given. She does not have much pain today) Review of Systems 10-point ROS is otherwise unremarkable General: Weakness Physical Examination - Vital Signs Temperature: 98.0 F Blood Pressure: 122/56 Pulse: 44 Respirations: 16 Pulse Ox (%): 98 - Physical Exam General: Alert, Mild distress HEENT: Atraumatic, PERRLA, EOMI Neck: Supple, JVD not distended Respiratory: Clear to auscultation bilaterally, Normal air movement Cardiovascular: Regular rate/rhythm, Normal S1 S2 Gastrointestinal: Normal bowel sounds, No tenderness Musculoskeletal: No tenderness Integumentary: No rashes Neurological: Normal speech, Normal tone, Normal affect Lymphatics: No axilla or inguinal lymphadenopathy - Studies Microbiology Data (last 24 hrs): 11/10/23 11:28 Clean Catch Urine [place] Count - Final No growth. 11/10/23 11:28 Clean Catch Urine - Final No growth. Assessment And Plan - Current Problems (Diagnosis) (1) PVD (peripheral vascular disease) Current Visit: Yes Status: Acute Plan: will continue eliquis (2) Back pain Current Visit: Yes Status: Acute Plan: start her on iv fentanly which will not drop her bp. Will then start the patient on a fentanyl patch Will also start scheduled oral tylenol Qualifiers: Back pain location: low back pain Chronicity: chronic Back pain laterality: midline Sciatica presence: without sciatica Qualified Code(s): M54.50 - Low back pain, unspecified; G89.29 - Other chronic pain (3) RENATA (acute kidney injury) Current Visit: No Status: Resolved Plan: baseline ckd stage 1. Will start her on fluids. Avoid nsaids. Start a casas and monitor creatine and urine output (4) Pressure ulcer of sacral region, stage 2 Current Visit: No Status: Chronic Plan: will consult wound care. start her on santyl. Will see if she needs pressure mattress (5) UTI (urinary tract infection) Onset Date: 01/20/16 Current Visit: No Status: Acute Plan: will start the patient on meropenem. check blood cultures. She may need a picc line and placement for 2 weeks of antibiotics. Qualifiers: Urinary tract infection type: acute cystitis Hematuria presence: without hematuria Qualified Code(s): N30.00 - Acute cystitis without hematuria (6) Atrial fibrillation with rapid ventricular response Onset Date: 04/03/15 Current Visit: No Status: Chronic Plan: restart the digoxin and eliquis. Will hold beta blockers as she is bradycardic (7) Refeeding syndrome Current Visit: Yes Status: Acute Plan: patient had low phosphorous. Diarrhea and RR yesterday. Will replace the phosphorus. Very slowly start peg feeding (8) Unspecified protein-calorie malnutrition Current Visit: Yes Status: Chronic Plan: most likely due to her poor nutrition due to dysphagia. Will need to start feeding her and send her to inpt rehab. Her recovery will take a while Qualifiers: Protein-calorie malnutrition severity: severe Qualified Code(s): E43 - Unspecified severe protein-calorie malnutrition Discharge Plan: LTAC Plan to discharge in: 48 Hours - Code Status/Comfort Care Code Status Assessed: No Physician Review: Patient Assessed, Agree with Above Assessment and Plan Critical Care: No Time Spent Managing PTS Care (In Minutes): 20
[2023-11-13] MEDS: GLUCERNA 1.2 CAL 1,000 ML BOT RTH SCH (17:59)
[2023-11-13] MEDS ORDERED: FENTANYL 25 MCG/PATCH TD SCH (22:08)
[2023-11-14 06:52] LABS: Absolute Eosinophils 0.1 K/uL (0-0.5); Absolute Lymphocytes (CBC) 0.7 K/uL (0.7-4.9); Absolute Monocytes 0.2 K/uL (0.1-1.3); Absolute Neutrophil 2.2 K/uL (1.8-8.0); Basophils % 0.4 % (0-1.3); Eosinophils % 1.9 % (0-4.4); Hematocrit 29.6 % (36.0-45.0); Hemoglobin 10.1 g/dL (12.0-15.0); Lymphocytes % 22.7 % (15.3-44.8); MCH 34.1 pg (27.0-35.0); MCHC 34.1 g/dL (32.0-36.0); MCV 100.3 fL (80-100); MPV 10.1 fL (7.6-11.3); Monocytes % 5.7 % (3.3-12.3); Neutrophils % 69.3 % (41.7-73.7); Platelets 80 thou/uL (152-406); RBC Red Blood Cell Count 2.95 M/uL (3.86-4.86); Red Cell Distribution Width 17.9 % (12.1-15.2)
[2023-11-14 07:11] LABS: AST/SGOT 16 U/L (15-37); Albumin 1.2 g/dL (3.4-5.0); Albumin/Globulin Ratio 0.5 (1.1-1.8); Alkaline Phosphatase 48 U/L (45-117); Anion Gap 7.7 mEq/L (5.0-15.0); BUN Blood Urea Nitrogen 21 mg/dL (7-18); Bicarbonate 19 mEq/L (21-32); Bilirubin Total 0.4 mg/dL (0.2-1.0); Globulin 2.4 g/dL (2.3-3.5); Glomerular Filtration Rate 85 ml/min (=/>90); Glucose Level 104 mg/dL (74-106); Magnesium 1.7 mg/dL (1.6-2.4); Phosphorus 2.4 mg/dL (2.5-4.9); Potassium 3.7 mEq/L (3.5-5.1); Protein, Total 3.6 g/dL (6.4-8.2); Sodium Level 143 mEq/L (136-145)
[2023-11-14 07:13] LABS: ALT/SGPT < 10 U/L (13-56)
--- NOTE | 2023-11-14 08:15 | P.PN ---
Subjective Date of Service: 11/14/23 Primary Care Provider: robina Chief Complaint: urosepsis, sacral decubitus Subjective: No new changes Review of Systems 10-point ROS is otherwise unremarkable Physical Examination - Vital Signs Temperature: 97.7 F Blood Pressure: 116/56 Pulse: 80 Respirations: 18 Pulse Ox (%): 100 - Physical Exam General: Alert, In no apparent distress HEENT: Atraumatic, PERRLA, EOMI Neck: Supple, JVD not distended Respiratory: Clear to auscultation bilaterally, Normal air movement Cardiovascular: Regular rate/rhythm, Normal S1 S2 Gastrointestinal: Normal bowel sounds, No tenderness Musculoskeletal: No tenderness Integumentary: No rashes Neurological: Normal speech, Normal tone, Normal affect Lymphatics: No axilla or inguinal lymphadenopathy Assessment And Plan - Current Problems (Diagnosis) (1) UTI (urinary tract infection) Onset Date: 01/20/16 Current Visit: No Status: Acute Plan: will start the patient on meropenem. check blood cultures. She may need a picc line and placement for 2 weeks of antibiotics. 11/[address] a picc line for antibiotic treatment Qualifiers: Urinary tract infection type: acute cystitis Hematuria presence: without hematuria Qualified Code(s): N30.00 - Acute cystitis without hematuria (2) PVD (peripheral vascular disease) Current Visit: Yes Status: Acute Plan: will continue eliquis (3) Back pain Current Visit: Yes Status: Acute Plan: start her on iv fentanly which will not drop her bp. Will then start the patient on a fentanyl patch Will also start scheduled oral tylenol Qualifiers: Back pain location: low back pain Chronicity: chronic Back pain laterality: midline Sciatica presence: without sciatica Qualified Code(s): M54.50 - Low back pain, unspecified; G89.29 - Other chronic pain (4) RENATA (acute kidney injury) Current Visit: No Status: Resolved Plan: baseline ckd stage 1. Will start her on fluids. Avoid nsaids. Start a casas and monitor creatine and urine output (5) Pressure ulcer of sacral region, stage 2 Current Visit: No Status: Chronic Plan: will consult wound care. start her on santyl. Will see if she needs pressure mattress (6) Atrial fibrillation with rapid ventricular response Onset Date: 04/03/15 Current Visit: No Status: Chronic Plan: restart the digoxin and eliquis. Will hold beta blockers as she is bradycardic (7) Refeeding syndrome Current Visit: Yes Status: Acute Plan: patient had low phosphorous. Diarrhea and RR yesterday. Will replace the phosphorus. Very slowly start peg feeding (8) Unspecified protein-calorie malnutrition Current Visit: Yes Status: Chronic Plan: most likely due to her poor nutrition due to dysphagia. Will need to start feeding her and send her to in rehab. Her recovery will take a while 11/13 states she is lactose intolerant. Will have nutrition Check which feeding product we can use for her Qualifiers: Protein-calorie malnutrition severity: severe Qualified Code(s): E43 - Unspecified severe protein-calorie malnutrition - Code Status/Comfort Care Code Status Assessed: No Physician Review: Patient Assessed, Agree with Above Assessment and Plan Critical Care: No Time Spent Managing PTS Care (In Minutes): 20
[2023-11-14] MEDS: CA POLYCARBOPHIL (FIBERCON) 625 MG TAB FT ONE (09:27)
[2023-11-14] MEDS: Mupirocin NASAL 2 APPL/1 GM TUBE NAS SCH (09:27)
[2023-11-14] MEDS: JEVITY 1.2 CAL LIQUID 1,000 ML BOT RTH SCH (14:32)
[2023-11-14] MEDS: Banana Flakes/T-Galactooligos 1 Dose Packet PO SCH (21:00)
--- NOTE | 2023-11-15 08:08 | P.PN ---
Subjective Date of Service: 11/15/23 Primary Care Provider: robina Chief Complaint: urosepsis, sacral decubitus Subjective: No new changes Review of Systems 10-point ROS is otherwise unremarkable Musculoskeletal: Leg Pain Physical Examination - Vital Signs Temperature: 97.0 F Blood Pressure: 111/51 Pulse: 47 Respirations: 15 Pulse Ox (%): 96 - Physical Exam General: Alert, Mild distress HEENT: Atraumatic, PERRLA, EOMI Neck: Supple, JVD not distended Respiratory: Clear to auscultation bilaterally, Normal air movement Cardiovascular: Regular rate/rhythm, Normal S1 S2 Gastrointestinal: Normal bowel sounds, No tenderness Musculoskeletal: No tenderness Integumentary: No rashes Neurological: Normal speech, Normal tone, Normal affect Lymphatics: No axilla or inguinal lymphadenopathy Assessment And Plan - Current Problems (Diagnosis) (1) UTI (urinary tract infection) Onset Date: 01/20/16 Current Visit: No Status: Acute Plan: will start the patient on meropenem. check blood cultures. She may need a picc line and placement for 2 weeks of antibiotics. 11/14 plans for picc line today Qualifiers: Urinary tract infection type: acute cystitis Hematuria presence: without hematuria Qualified Code(s): N30.00 - Acute cystitis without hematuria (2) PVD (peripheral vascular disease) Current Visit: Yes Status: Acute Plan: will continue eliquis (3) Back pain Current Visit: Yes Status: Acute Plan: start her on iv fentanly which will not drop her bp. Will then start the patient on a fentanyl patch Will also start scheduled oral tylenol Qualifiers: Back pain location: low back pain Chronicity: chronic Back pain laterality: midline Sciatica presence: without sciatica Qualified Code(s): M54.50 - Low back pain, unspecified; G89.29 - Other chronic pain (4) RENATA (acute kidney injury) Current Visit: No Status: Resolved Plan: baseline ckd stage 1. Will start her on fluids. Avoid nsaids. Start a casas and monitor creatine and urine output (5) Pressure ulcer of sacral region, stage 2 Current Visit: No Status: Chronic Plan: will consult wound care. start her on santyl. Will see if she needs pressure mattress (6) Atrial fibrillation with rapid ventricular response Onset Date: 04/03/15 Current Visit: No Status: Chronic Plan: restart the digoxin and eliquis. Will hold beta blockers as she is bradycardic (7) Refeeding syndrome Current Visit: Yes Status: Acute Plan: patient had low phosphorous. Diarrhea and RR yesterday. Will replace the phosphorus. Very slowly start peg feeding (8) Unspecified protein-calorie malnutrition Current Visit: Yes Status: Chronic Plan: most likely due to her poor nutrition due to dysphagia. Will need to start feeding her and send her to in rehab. Her recovery will take a while / switched her feedings and she is tolerating better. Will start increasing feeding for 12 hrs on and 6 hours off. Need to get to her goal of 55cc/day Qualifiers: Protein-calorie malnutrition severity: severe Qualified Code(s): E43 - Unspecified severe protein-calorie malnutrition Discharge Plan: LTAC Plan to discharge in: 24 Hours - Code Status/Comfort Care Code Status Assessed: No Physician Review: Patient Assessed, Agree with Above Assessment and Plan Critical Care: No Time Spent Managing PTS Care (In Minutes): 20
--- NOTE | 2023-11-15 11:00 | RAD REPORT ---
EXAM DESCRIPTION: RAD - Chest Single View - 11/15/2023 10:48 am CLINICAL HISTORY: Device placement PICC line placement IMPRESSION: PICC line with its tip in the distal superior vena cava
[2023-11-16 07:45] LABS: Magnesium 1.6 mg/dL (1.6-2.4); Phosphorus 2.2 mg/dL (2.5-4.9)
[2023-11-16] MEDS ORDERED: LORATADINE 10 MG TAB PO PRN (10:17)
--- NOTE | 2023-11-16 10:24 | P.PN ---
Subjective Date of Service: 11/16/23 Primary Care Provider: robina Chief Complaint: urosepsis, sacral decubitus Subjective: New changes (has congestion and sob) Review of Systems 10-point ROS is otherwise unremarkable ENT: Nose Congestion Respiratory: Cough, Shortness of Breath Physical Examination - Vital Signs Temperature: 97.0 F Blood Pressure: 138/72 Pulse: 54 Respirations: 18 Pulse Ox (%): 100 - Physical Exam General: Alert, In no apparent distress HEENT: Atraumatic, PERRLA, EOMI Neck: Supple, JVD not distended Respiratory: Clear to auscultation bilaterally, Rhonchi/gurgles Cardiovascular: Regular rate/rhythm, Normal S1 S2 Gastrointestinal: Normal bowel sounds, No tenderness Musculoskeletal: No tenderness Integumentary: No rashes Neurological: Normal speech, Normal tone, Normal affect Lymphatics: No axilla or inguinal lymphadenopathy - Studies Microbiology Data (last 24 hrs): 11/10/23 11:09 Blood - Blood Aerobic Blood Culture - Final No growth in 5 days. 11/10/23 11:09 Blood - Blood Anaerobic Blood Culture - Final 11/10/23 10:37 Blood - Blood Aerobic Blood Culture - Final No growth in 5 days. 11/10/23 10:37 Blood - Blood Anaerobic Blood Culture - Final Assessment And Plan - Current Problems (Diagnosis) (1) UTI (urinary tract infection) Onset Date: 01/20/16 Current Visit: No Status: Acute Plan: will start the patient on meropenem. check blood cultures. She may need a picc line and placement for 2 weeks of antibiotics. 11/14 plans for picc line today Qualifiers: Urinary tract infection type: acute cystitis Hematuria presence: without hematuria Qualified Code(s): N30.00 - Acute cystitis without hematuria (2) PVD (peripheral vascular disease) Current Visit: Yes Status: Acute Plan: will continue eliquis (3) Back pain Current Visit: Yes Status: Acute Plan: start her on iv fentanly which will not drop her bp. Will then start the patient on a fentanyl patch Will also start scheduled oral tylenol Qualifiers: Back pain location: low back pain Chronicity: chronic Back pain laterality: midline Sciatica presence: without sciatica Qualified Code(s): M54.50 - Low back pain, unspecified; G89.29 - Other chronic pain (4) RENATA (acute kidney injury) Current Visit: No Status: Resolved Plan: baseline ckd stage 1. Will start her on fluids. Avoid nsaids. Start a casas and monitor creatine and urine output (5) Pressure ulcer of sacral region, stage 2 Current Visit: No Status: Chronic Plan: will consult wound care. start her on santyl. Will see if she needs pressure mattress (6) Atrial fibrillation with rapid ventricular response Onset Date: 04/03/15 Current Visit: No Status: Chronic Plan: restart the digoxin and eliquis. Will hold beta blockers as she is bradycardic (7) Refeeding syndrome Current Visit: Yes Status: Acute Plan: patient had low phosphorous. Diarrhea and RR yesterday. Will replace the phosphorus. Very slowly start peg feeding (8) Unspecified protein-calorie malnutrition Current Visit: Yes Status: Chronic Plan: most likely due to her poor nutrition due to dysphagia. Will need to start feeding her and send her to inpt rehab. Her recovery will take a while / switched her feedings and she is tolerating better. Will start increasing feeding for 12 hrs on and 6 hours off. Need to get to her goal of 55cc/day Qualifiers: Protein-calorie malnutrition severity: severe Qualified Code(s): E43 - Unspecified severe protein-calorie malnutrition (9) Seasonal allergies Current Visit: Yes Status: Acute Plan: will start her on loratadine and fluticaonse. Start her on breathing treatments. If the patient has no improvement we can give her one dose of mucomyst via nebulizer Discharge Plan: LTAC Plan to discharge in: 48 Hours - Code Status/Comfort Care Code Status Assessed: No Physician Review: Patient Assessed, Agree with Above Assessment and Plan Critical Care: No Time Spent Managing PTS Care (In Minutes): 20
[2023-11-16] MEDS: LEVALBUTEROL 0.63 MG/3 ML NEB NEB SCH ×2 (10:40→20:16)
[2023-11-16] MEDS: ACETYLCYST 20% 4 ML VIAL IH ONE ×2 (12:00→17:00)
[2023-11-16] MEDS: FLUTICASONE 50MCG NASAL SPRAY NAS SCH (13:06)
[2023-11-16] MEDS: dexAMETHasone 4 MG/ML VIAL IV ONE (16:37)
--- NOTE | 2023-11-16 17:18 | P.PN ---
Date of Service: 11/16/23 Family meeting with the . Daughter and son present. wished to ask general questions about the patients diagnosis. He seems to be anxious. The daughter was told not to come in the room by her mother. states she said that to him as well. The family has been under a lot of stress. Particular the who has seen his of 60 plus years waste away over the last 6months. Will try to be available for him. Daughter confirmed they're is a lot of social support for the family
[2023-11-17 07:21] LABS: Absolute Lymphocytes (CBC) 0.4 K/uL (0.7-4.9); Absolute Monocytes 0.2 K/uL (0.1-1.3); Absolute Neutrophil 6.5 K/uL (1.8-8.0); Basophils % 0.3 % (0-1.3); Hematocrit 31.4 % (36.0-45.0); Hemoglobin 10.6 g/dL (12.0-15.0); Lymphocytes % 6.2 % (15.3-44.8); MCH 33.8 pg (27.0-35.0); MCHC 33.6 g/dL (32.0-36.0); MCV 100.5 fL (80-100); MPV 10.3 fL (7.6-11.3); Monocytes % 2.6 % (3.3-12.3); Neutrophils % 90.9 % (41.7-73.7); Nucleated Red Blood Cells % 0.1 % (0-0); Platelets 77 thou/uL (152-406); RBC Red Blood Cell Count 3.13 M/uL (3.86-4.86); Red Cell Distribution Width 18.2 % (12.1-15.2)
[2023-11-17 08:02] LABS: AST/SGOT 12 U/L (15-37); Albumin 1.2 g/dL (3.4-5.0); Albumin/Globulin Ratio 0.4 (1.1-1.8); Alkaline Phosphatase 66 U/L (45-117); Anion Gap 11.3 mEq/L (5.0-15.0); BUN Blood Urea Nitrogen 21 mg/dL (7-18); Bicarbonate 16 mEq/L (21-32); Bilirubin Total 0.3 mg/dL (0.2-1.0); Glomerular Filtration Rate 83 ml/min (=/>90); Glucose Level 191 mg/dL (74-106); Magnesium 1.7 mg/dL (1.6-2.4); Phosphorus 2.8 mg/dL (2.5-4.9); Potassium 4.3 mEq/L (3.5-5.1); Protein, Total 4.2 g/dL (6.4-8.2); Sodium Level 143 mEq/L (136-145)
[2023-11-17 08:03] LABS: ALT/SGPT < 10 U/L (13-56)
--- NOTE | 2023-11-17 08:28 | P.PN ---
Subjective Date of Service: 11/17/23 Primary Care Provider: robina Chief Complaint: urosepsis, sacral decubitus Subjective: New changes (had some anxiety and could not sleep last night. Was given steroids yesterday) Review of Systems 10-point ROS is otherwise unremarkable General: Other (anxiety and not able to sleep ) Physical Examination - Vital Signs Temperature: 97.7 F Blood Pressure: 156/70 Pulse: 57 Respirations: 18 Pulse Ox (%): 95 - Physical Exam General: Alert, Moderate distress HEENT: Atraumatic, PERRLA, EOMI Neck: Supple, JVD not distended Respiratory: Clear to auscultation bilaterally, Normal air movement Cardiovascular: Regular rate/rhythm, Normal S1 S2 Gastrointestinal: Normal bowel sounds, No tenderness Musculoskeletal: No tenderness Integumentary: No rashes Neurological: Normal speech, Normal tone, Normal affect Lymphatics: No axilla or inguinal lymphadenopathy Assessment And Plan - Current Problems (Diagnosis) (1) UTI (urinary tract infection) Onset Date: 01/20/16 Current Visit: No Status: Acute Plan: will start the patient on meropenem. check blood cultures. She may need a picc line and placement for 2 weeks of antibiotics. 11/14 plans for picc line today Qualifiers: Urinary tract infection type: acute cystitis Hematuria presence: without hematuria Qualified Code(s): N30.00 - Acute cystitis without hematuria (2) PVD (peripheral vascular disease) Current Visit: Yes Status: Acute Plan: will continue eliquis (3) Back pain Current Visit: Yes Status: Acute Plan: start her on iv fentanly which will not drop her bp. Will then start the patient on a fentanyl patch Will also start scheduled oral tylenol Qualifiers: Back pain location: low back pain Chronicity: chronic Back pain laterality: midline Sciatica presence: without sciatica Qualified Code(s): M54.50 - Low back pain, unspecified; G89.29 - Other chronic pain (4) RENATA (acute kidney injury) Current Visit: No Status: Resolved Plan: baseline ckd stage 1. Will start her on fluids. Avoid nsaids. Start a casas and monitor creatine and urine output (5) Pressure ulcer of sacral region, stage 2 Current Visit: No Status: Chronic Plan: will consult wound care. start her on santyl. Will see if she needs pressure mattress (6) Atrial fibrillation with rapid ventricular response Onset Date: 04/03/15 Current Visit: No Status: Chronic Plan: restart the digoxin and eliquis. Will hold beta blockers as she is bradycardic (7) Refeeding syndrome Current Visit: Yes Status: Acute Plan: patient had low phosphorous. Diarrhea and RR yesterday. Will replace the phosphorus. Very slowly start peg feeding (8) Unspecified protein-calorie malnutrition Current Visit: Yes Status: Chronic Plan: most likely due to her poor nutrition due to dysphagia. Will need to start feeding her and send her to in rehab. Her recovery will take a while 11/14 switched her feedings and she is tolerating better. Will start increasing feeding for 12 hrs on and 6 hours off. Need to get to her goal of 55cc/day Qualifiers: Protein-calorie malnutrition severity: severe Qualified Code(s): E43 - Unspecified severe protein-calorie malnutrition (9) Seasonal allergies Current Visit: Yes Status: Acute Plan: will start her on loratadine and fluticaonse. Start her on breathing treatments. If the patient has no improvement we can give her one dose of mucomyst via nebulizer (10) Insomnia Current Visit: Yes Status: Acute Plan: possible due to the decadrone. Will hold that. Her lungs are clear. 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
[2023-11-17 08:39] LABS: Blood Morphology Comment NOT SEEN (NOT SEEN); Platelet Estimate DECR; White Blood Cell Scan OK (OK)
[2023-11-17] MEDS: clonazePAM 0.5 MG TAB PO PRN (09:32)
--- NOTE | 2023-11-17 09:43 | RAD REPORT ---
[facility] CLINICAL HISTORY: shortness of breathe COMPARISON: Chest Single View dated 11/15/2023; Chest Single View dated 11/02/2023; Chest Single View dated 11/02/2023; Chest Single View dated 10/28/2023 TECHNIQUE: Portable AP view of the chest. FINDINGS: Progressive central predominant patchy airspace opacities. Right moderate effusion, may al so have progressed. Small to moderate left pleural effusion appears stable. Right arm PICC unchanged in position. No pneumothorax or effusion. The cardiomediastinal contours are unremarkable. IMPRESSION: Progressive airspace opacities and probably progressive right pleural effusion as above. Findings suggest pulmonary edema. Superimposed pneumonia would be difficult to exclude.
[2023-11-17] MEDS: SOMATROPIN 6 MG SQ SCH (14:30)
[2023-11-17] MEDS: MORPHINE 2 MG/ML SYR IV ONE (14:38)
[2023-11-18] MEDS: MAGNESIUM SULFATE 1 gm IVPB 1 GM/100 ML BAG IV ONE (02:29)
[2023-11-18 06:30] LABS: Absolute Lymphocytes (CBC) 0.7 K/uL (0.7-4.9); Absolute Monocytes 0.3 K/uL (0.1-1.3); Absolute Neutrophil 8.5 K/uL (1.8-8.0); Basophils % 0.2 % (0-1.3); Eosinophils % 0.1 % (0-4.4); Hematocrit 32.1 % (36.0-45.0); Hemoglobin 10.6 g/dL (12.0-15.0); MCH 33.2 pg (27.0-35.0); MCHC 33.2 g/dL (32.0-36.0); MCV 100.1 fL (80-100); MPV 10.8 fL (7.6-11.3); Neutrophils % 89.7 % (41.7-73.7); Platelets 77 thou/uL (152-406); RBC Red Blood Cell Count 3.21 M/uL (3.86-4.86); Red Cell Distribution Width 18.4 % (12.1-15.2)
[2023-11-18 06:55] LABS: AST/SGOT 13 U/L (15-37); Albumin 1.2 g/dL (3.4-5.0); Albumin/Globulin Ratio 0.4 (1.1-1.8); Alkaline Phosphatase 71 U/L (45-117); Anion Gap 9.5 mEq/L (5.0-15.0); BUN Blood Urea Nitrogen 23 mg/dL (7-18); Bicarbonate 18 mEq/L (21-32); Bilirubin Total 0.2 mg/dL (0.2-1.0); Glomerular Filtration Rate 88 ml/min (=/>90); Glucose Level 141 mg/dL (74-106); Magnesium 2.1 mg/dL (1.6-2.4); Potassium 4.5 mEq/L (3.5-5.1); Protein, Total 4.2 g/dL (6.4-8.2); Sodium Level 143 mEq/L (136-145)
[2023-11-18 07:07] LABS: ALT/SGPT < 10 U/L (13-56)
--- NOTE | 2023-11-18 11:41 | P.PN ---
Subjective Date of Service: 11/18/23 Primary Care Provider: robina Chief Complaint: urosepsis, sacral decubitus Subjective: Worsening (sob and swelling of the feet) Review of Systems 10-point ROS is otherwise unremarkable Respiratory: Shortness of Breath Cardiovascular: Edema (1+ pedal edema) Physical Examination - Vital Signs Temperature: 97.1 F Blood Pressure: 103/45 Pulse: 49 Respirations: 22 Pulse Ox (%): 96 - Physical Exam General: Alert, In no apparent distress HEENT: Atraumatic, PERRLA, EOMI Neck: Supple, JVD not distended Respiratory: Crackles/rales Cardiovascular: Regular rate/rhythm, Normal S1 S2, Edema (1+ pedal edema) Gastrointestinal: Normal bowel sounds, No tenderness Musculoskeletal: No tenderness Integumentary: No rashes Neurological: Normal speech, Normal tone, Normal affect Lymphatics: No axilla or inguinal lymphadenopathy Assessment And Plan - Current Problems (Diagnosis) (1) UTI (urinary tract infection) Onset Date: 01/20/16 Current Visit: No Status: Acute Plan: will start the patient on meropenem. check blood cultures. She may need a picc line and placement for 2 weeks of antibiotics. 11/14 plans for picc line today Qualifiers: Urinary tract infection type: acute cystitis Hematuria presence: without hematuria Qualified Code(s): N30.00 - Acute cystitis without hematuria (2) PVD (peripheral vascular disease) Current Visit: Yes Status: Acute Plan: will continue eliquis (3) Back pain Current Visit: Yes Status: Acute Plan: start her on iv fentanly which will not drop her bp. Will then start the patient on a fentanyl patch Will also start scheduled oral tylenol Qualifiers: Back pain location: low back pain Chronicity: chronic Back pain laterality: midline Sciatica presence: without sciatica Qualified Code(s): M54.50 - Low back pain, unspecified; G89.29 - Other chronic pain (4) RENATA (acute kidney injury) Current Visit: No Status: Resolved Plan: baseline ckd stage 1. Will start her on fluids. Avoid nsaids. Start a casas and monitor creatine and urine output (5) Pressure ulcer of sacral region, stage 2 Current Visit: No Status: Chronic Plan: will consult wound care. start her on santyl. Will see if she needs pressure mattress (6) Atrial fibrillation with rapid ventricular response Onset Date: 04/03/15 Current Visit: No Status: Chronic Plan: restart the digoxin and eliquis. Will hold beta blockers as she is bradycardic (7) Refeeding syndrome Current Visit: Yes Status: Acute Plan: patient had low phosphorous. Diarrhea and RR yesterday. Will replace the phosphorus. Very slowly start peg feeding (8) Unspecified protein-calorie malnutrition Current Visit: Yes Status: Chronic Plan: most likely due to her poor nutrition due to dysphagia. Will need to start feeding her and send her to inpt rehab. Her recovery will take a while 11/14 switched her feedings and she is tolerating better. Will start increasing fee ding for 12 hrs on and 6 hours off. Need to get to her goal of 55cc/day Qualifiers: Protein-calorie malnutrition severity: severe Qualified Code(s): E43 - Unspecified severe protein-calorie malnutrition (9) Seasonal allergies Current Visit: Yes Status: Acute Plan: will start her on loratadine and fluticaonse. Start her on breathing treatments. If the patient has no improvement we can give her one dose of mucomyst via nebulizer (10) Insomnia Current Visit: Yes Status: Acute Plan: possible due to the decadrone. Will hold that. Her lungs are clear. 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 Will give the patient 1 dose of lasix 40mg Physician Review: Patient Assessed, Agree with Above Assessment and Plan Critical Care: No Time Spent Managing PTS Care (In Minutes): 20
[2023-11-18] MEDS: FUROSEMIDE 40 MG/4 ML VIAL IV ONE ×2 (13:15→17:18)
[2023-11-18] MEDS: FUROSEMIDE 40 MG/4 ML VIAL ONE (17:16)
--- NOTE | 2023-11-18 17:48 | EKG ---
Test Date: 2023-11-12 Test Time: 15:36:40 Slate Handler: ROBBIE MEASUREMENT RESULTS: Intervals: Rate: 51 AK: QRSD: 80 QT: 550 QTc: 506 Mobile: P: AK: QRS: -37 T: 37 INTERPRETIVE STATEMENTS: Atrial fibrillation with slow ventricular response with a competing junctional pacemaker Left axis deviation Anterior infarct, age undetermined Abnormal ECG Compared to ECG 11/12/2023 15:36:06 Prolonged QT interval no longer present Myocardial infarct finding still present Electronically Signed On 11-18-23 17:31:00 CDT by Kemar Hall
--- NOTE | 2023-11-18 17:48 | EKG ---
Test Date: 2023-11-12 Test Time: 15:36:06 Claims Specialist: ROBBIE MEASUREMENT RESULTS: Intervals: Rate: 52 AR: QRSD: 88 QT: 566 QTc: 526 [place]: P: AR: QRS: -39 T: 47 INTERPRETIVE STATEMENTS: Atrial fibrillation with slow ventricular response with a competing junctional pacemaker Left axis deviation Possible Anterior infarct, age undetermined Prolonged QT Abnormal ECG Compared to ECG 11/10/2023 10:16:00 Left-axis deviation now present Prolonged QT interval now present Myocardial infarct finding still present Electronically Signed On 11-18-23 17:31:02 CDT by Kemar Hall
--- NOTE | 2023-11-18 18:00 | EKG ---
Test Date: 2023-11-10 Test Time: 10:16:00 Rn Care Manager: LISSETH MEASUREMENT RESULTS: Intervals: Rate: 51 MT: QRSD: 82 QT: 522 QTc: 481 [place]: P: MT: QRS: -26 T: 27 INTERPRETIVE STATEMENTS: Atrial fibrillation with slow ventricular response with a competing junctional pacemaker Possible Anterior infarct, age undetermined Abnormal ECG Compared to ECG 11/05/2023 14:58:08 Atrial premature complex(es) no longer present Junctional rhythm no longer present Myocardial infarct finding still present Electronically Signed On 11-18-23 17:35:03 CDT by Kemar Hall
[2023-11-19 03:35] LABS: Absolute Lymphocytes (CBC) 0.5 K/uL (0.7-4.9); Absolute Monocytes 0.2 K/uL (0.1-1.3); Absolute Neutrophil 5.6 K/uL (1.8-8.0); Basophils % 0.3 % (0-1.3); Eosinophils % 0.3 % (0-4.4); Hematocrit 32.2 % (36.0-45.0); Hemoglobin 10.6 g/dL (12.0-15.0); Lymphocytes % 8.1 % (15.3-44.8); MCH 33.5 pg (27.0-35.0); MCV 101.7 fL (80-100); MPV 11.1 fL (7.6-11.3); Neutrophils % 88.3 % (41.7-73.7); Nucleated Red Blood Cells % 0.1 % (0-0); Platelets 59 thou/uL (152-406); RBC Red Blood Cell Count 3.17 M/uL (3.86-4.86); Red Cell Distribution Width 18.9 % (12.1-15.2)
[2023-11-19 03:57] LABS: ALT/SGPT < 10 U/L (13-56); AST/SGOT 14 U/L (15-37); Albumin/Globulin Ratio 0.4 (1.1-1.8); Alkaline Phosphatase 64 U/L (45-117); BUN Blood Urea Nitrogen 28 mg/dL (7-18); Bicarbonate 18 mEq/L (21-32); Bilirubin Total 0.3 mg/dL (0.2-1.0); Globulin 2.7 g/dL (2.3-3.5); Glomerular Filtration Rate 82 ml/min (=/>90); Glucose Level 91 mg/dL (74-106); Protein, Total 3.7 g/dL (6.4-8.2); Sodium Level 146 mEq/L (136-145)
[2023-11-19 10:34] LABS: Magnesium 2.1 mg/dL (1.6-2.4); Phosphorus 4.4 mg/dL (2.5-4.9)
[2023-11-19 11:11] VITALS: BP 96/46
[2023-11-19 11:36] VITALS: O2SAT 91
--- NOTE | 2023-11-19 12:45 | RAD REPORT ---
EXAM DESCRIPTION: RAD - Chest Single View - 11/19/2023 12:39 pm CLINICAL HISTORY: / sats Chest pain. COMPARISON: Chest Single View dated 11/17/2023; Chest Single View dated 11/15/2023; Chest Single View dated 11/02/2023; Chest Single View dated 11/02/2023 FINDINGS: Portable technique limits examination quality. Extensive bilateral pulmonary opacities are again seen, mildly to moderately worsened since prior study. Cardiac size is mildly prominent. Right-sided venous catheter tip in the SVC. IMPRESSION: Mild to moderate worsening in bilateral lung aeration since 11/17/2023 study.
[2023-11-19 13:26] LABS: Arterial Blood Carboxyhemoglob 0.9 % (0-1.5)
[2023-11-19 13:27] LABS: Blood Gas Oxyhemoglobin 81.4 % (94-97)
[2023-11-19 14:38] VITALS: TEMP 96.2
[2023-11-19] MEDS ORDERED: DOXYCYCLINE 100 MG in NA CHLORIDE 0.9% 100 ML IVPB SCH (21:00)
[2023-11-19] MEDS ORDERED: Meropenem 1,000 MG in NA CHLORIDE 0.9% 100 ML IV SCH (21:00)
[2023-11-20] MEDS ORDERED: FUROSEMIDE 40 MG TABLET PO SCH (09:00)
[2023-11-20] MEDS ORDERED: FUROSEMIDE 40 MG/4 ML VIAL IV SCH (09:00)
--- NOTE | 2023-11-21 12:22 | P.DS ---
Admission Date: 11/10/23 Discharge Date: 11/19/23 Primary Care Provider: robina Disposition: Discharge Condition: Reason for Admission: urosepsis, sacral decubitus - Problems (1) UTI (urinary tract infection) Onset Date: 01/20/16 Status: Acute Qualifiers: Urinary tract infection type: acute cystitis Hematuria presence: without hematuria Qualified Code(s): N30.00 - Acute cystitis without hematuria (2) PVD (peripheral vascular disease) Status: Acute (3) Back pain Status: Acute Qualifiers: Back pain location: low back pain Chronicity: chronic Back pain laterality: midline Sciatica presence: without sciatica Qualified Code(s): M54.50 - Low back pain, unspecified; G89.29 - Other chronic pain (4) RENATA (acute kidney injury) Status: Resolved (5) Pressure ulcer of sacral region, stage 2 Status: Chronic (6) Atrial fibrillation with rapid ventricular response Onset Date: 04/03/15 Status: Chronic (7) Refeeding syndrome Status: Acute (8) Unspecified protein-calorie malnutrition Status: Chronic Qualifiers: Protein-calorie malnutrition severity: severe Qualified Code(s): E43 - Unspecified severe protein-calorie malnutrition (9) Seasonal allergies Status: Acute (10) Insomnia Status: Acute Qualifiers: Insomnia type: drug-induced Qualified Code(s): 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 She has been having recurrent uti's for which she see's Dr. Mari Sutton. A urine culture from 11/05/23 shows ESBL, E Fecalis and Klebsiella. She came to the wound care center today and was found to have low bp and was sent to the ER. The patient was given a lt of fluid. She was found to have a creatine of 1.5. Baseline is 0.8-0.9. The patient is in acute distress and could not give a history. her and the chart were where most of the history came from. the patient has PVD, atrial fib, hypothyroidism and is mostly bed bound. Hospital Course: Patient was admiitted for a uti and weakness. She had recently had a peg tube placed for dysphagia. The plan was to discharge to an LTAC. However the patient continued to worsen. Was started on a bipap as she was getting into respiratory distress. She was a DNR. Patient on 11/19/23. Wish the best for the patient family. Thank you for allowing me to take part in the patients care. Vital Signs/Physical Exam: Temp Pulse Resp BP Pulse Ox 96.2 F L 38 L 30 H 96/46 L 100 11/19/23 12:00 11/19/23 12:00 11/19/23 12:00 11/19/23 08:00 11/19/23 12:00 General: Mild distress HEENT: Atraumatic, PERRLA, EOMI Neck: Supple, JVD not distended Respiratory: Clear to auscultation bilaterally, Normal air movement Cardiovascular: Regular rate/rhythm, Normal S1 S2 Gastrointestinal: Normal bowel sounds, No tenderness Musculoskeletal: No tenderness Integumentary: No rashes Neurological: Normal speech, Normal tone, Normal affect Lymphatics: No axilla or inguinal lymphadenopathy Laboratory Data at Discharge: WBC 6.30 thou/uL (4.3-10.9) 11/19/23 03:26 Hgb 10.6 g/dL (12.0-15.0) L 11/19/23 03:26 Hct 32.2 % (36.0-45.0) L 11/19/23 03:26 Plt Count 59 thou/uL (152-406) L 11/19/23 03:26 Sodium 146 mEq/L (136-145) H 11/19/23 03:26 Potassium 4.0 mEq/L (3.5-5.1) 11/19/23 03:26 BUN 28 mg/dL (7-18) H 11/19/23 03:26 Creatinine 0.72 mg/dL (0.55-1.02) 11/19/23 03:26 Glucose 91 mg/dL (74-106) 11/19/23 03:26 Phosphorus 4.4 mg/dL (2.5-4.9) 11/19/23 10:12 Magnesium 2.1 mg/dL (1.6-2.4) 11/19/23 10:12 Total Bilirubin 0.3 mg/dL (0.2-1.0) 11/19/23 03:26 AST 14 U/L (15-37) L 11/19/23 03:26 ALT < 10 U/L (13-56) L 11/19/23 03:26 Alkaline Phosphatase 64 U/L (45-117) 11/19/23 03:26 Lipase 8 U/L (13-75) L 11/10/23 10:37 Home Medications: Amiodarone HCl [Cordarone*] 1 tab PO BID 07/09/23 Apixaban [Eliquis *] 1 tab PO BID 07/09/23 Calcium Carbonate/Vitamin D3 [Caltrate 600 Plus D3 Tablet] 1 tab PO DAILY 07/09/23 Digoxin 1 tab PO DAILY 07/09/23 Furosemide 20 tab PO DAILY 07/09/23 Hydrocortisone [Cortef*] 2 tab PO BID 07/09/23 Levothyroxine [Synthroid*] 88 mcg PO DIRECTED 07/09/23 Pen Injector Device [Humatropen] 0.2 mg SQ DAILY 07/09/23 Tramadol HCl [Ultram] 1 tab PO Q6HR PRN 07/09/23 clonazePAM [Clonazepam] 0.5 mg PO BEDTIME PRN 07/09/23 Famotidine 1 tab PO DAILY 09/22/23 Omeprazole [Prilosec] 40 mg PO DAILY 09/22/23 Glipizide [Glipizide Xl] 2.5 mg PO DAILY 11/08/23 Liothyronine Sodium [Cytomel] 5 mcg PO DAILY 11/08/23 Time spent managing pt's care (in minutes): 40
== END 2023-11-19 17:00 | disposition expired | DRG 689 ==
LOC: ER 09:43 → ERHOLD 15:36 → 4TH 19:25
PROVIDERS: ADMIT Internal Medicine; ATTEND Internal Medicine
PROC: 0T9B70Z Drainage of Bladder with Drainage Device, Via Natural or Artificial Opening (ICD-10-PCS; 2023-11-10)
PROC: 02HV33Z Insertion of Infusion Device into Superior Vena Cava, Percutaneous Approach (ICD-10-PCS; 2023-11-15)
PROC: 5A09357 Assistance with Respiratory Ventilation, Less than 24 Consecutive Hours, Continuous Positive Airway Pressure (ICD-10-PCS; 2023-11-18)
PROC: 4A033R1 Measurement of Arterial Saturation, Peripheral, Percutaneous Approach (ICD-10-PCS; principal; 2023-11-19)
DX: N30.00 Acute cystitis without hematuria (principal); E43 Unspecified severe protein-calorie malnutrition; Z68.1 Body mass index [BMI] 19.9 or less, adult; N17.9 Acute kidney failure, unspecified; I48.20 Chronic atrial fibrillation, unspecified; E78.5 Hyperlipidemia, unspecified; G89.29 Other chronic pain; M54.50 Low back pain, unspecified; E03.9 Hypothyroidism, unspecified; L89.152 Pressure ulcer of sacral region, stage 2; N18.1 Chronic kidney disease, stage 1; E11.22 Type 2 diabetes mellitus with diabetic chronic kidney disease; E11.51 Type 2 diabetes mellitus with diabetic peripheral angiopathy without gangrene; J30.2 Other seasonal allergic rhinitis; K21.9 Gastro-esophageal reflux disease without esophagitis; F19.982 Other psychoactive substance use, unspecified with psychoactive substance-induced sleep disorder; R62.7 Adult failure to thrive; R13.10 Dysphagia, unspecified; R06.03 Acute respiratory distress; Z66 Do not resuscitate; Z88.1 Allergy status to other antibiotic agents; Z88.8 Allergy status to other drugs, medicaments and biological substances; Z95.5 Presence of coronary angioplasty implant and graft; Z79.01 Long term (current) use of anticoagulants; Z86.73 Personal history of transient ischemic attack (TIA), and cerebral infarction without residual deficits; Z74.01 Bed confinement status; Z79.84 Long term (current) use of oral hypoglycemic drugs; Z90.49 Acquired absence of other specified parts of digestive tract; Z86.718 Personal history of other venous thrombosis and embolism; Z79.890 Hormone replacement therapy; Z79.899 Other long term (current) drug therapy
CPT/HCPCS: 36415; 36600; 71045; 72220; 74176; 74230; 80053; 81001; 82140; 82805; 82947; 83690; 83735; 84100; 84134; 84484; 85025; 87040; 87086; 87088; 87324; 88305; 88312; 93005; 94640; 94660; 94760; 96365; 97110; 97112; 97161; 99203; 99285; J0692; J1100; J1940; J2001; J2185; J2270; J2310; J2405; J2550; J2704; J3010; J3475; J3590; J7030; J7042; J7050; J7120; J7608; J7614